=== PATIENT | female | born 1950 | race Caucasian/White ===

== ENCOUNTER 2019-08-24 09:04 | Emergency (ER) | payer MEDICARE, SELFPAY ==
[2019-08-24 09:05] VITALS: BP 145/90; PULSE 93; RESP 20; TEMP 37.4; O2SAT 91; BMI 28.2
--- NOTE | 2019-08-24 09:20 | CT_ITS ---
STUDY: CT ABDOMEN AND PELVIS WITHOUT CONTRAST REASON FOR EXAM: Female, 68 years old. Left flank pain x 1 week. Prior appendectomy, tubal ligation, hypertension. RADIATION DOSAGE (If Supplied By Facility): CTDIvol = ( 7.89 ) mGy, DLP = ( 378.65 ) mGycm TECHNIQUE: Transaxial images were obtained from the dome of the diaphragm to the symphysis pubis without oral contrast, and without intravenous contrast. Sagittal and coronal images were reconstructed. Individualized dose optimization techniques were used for this CT. COMPARISON: None. FINDINGS: Mild degree of increased markings in the anterior medial aspect of the right lower lobe suggestive of scarring. The visualized portions of the heart are within normal limits. Normal liver. Questionable tiny gallstones. Normal spleen. Normal pancreas. Normal bilateral adrenal glands. Normal right kidney. Normal left kidney. Moderate sized hiatal hernia. Normal small intestine. There are scattered colonic diverticula consistent with diverticulosis. The patient is status post appendectomy. There is diffuse atherosclerotic calcification of the abdominal aorta, without a demonstrated aneurysm. Normal inferior vena cava. Normal retroperitoneum. Normal urinary bladder. Normal abdominal wall. There is evidence of prior laminectomy with interpedicular screw fixation at the L4-L5 level. CT/Abdomen/Pelvis without Cont IMPRESSION: Moderate sized hiatal hernia. Possible tiny gallstones. Electronically Signed: Ubaldo Bro, at 9:49 EST , Service support ,
--- NOTE | 2019-08-24 09:21 | ED.DCSUM_ITS ---
History of Present Illness Chief Complaint: Flank Pain Informant: Patient Narrative: Patient states that at the end of July she was diagnosed with bronchitis. She states that she is pretty much gotten over that still has a lingering cough. For about a week she has had a discomfort in the lower left mid axillary flank. States is worse with movement and especially worse with cough. She tells me that she has had no change in urine or bowel movements. No reported fevers. She occasionally does produce some phlegm. No falls. Past Medical History - Allergies and Home Meds Allergies/Adverse Reactions: Allergies cefaclor [From Ceclor] Allergy (Verified 08/24/19 09:08) Hives Penicillins Allergy (Verified 08/24/19 09:08) Hives tramadol HCl [From Ultram] Allergy (Verified 08/24/19 09:08) Hives erythromycin base Adverse Reaction (Verified 08/24/19 09:08) Nausea Primary Care Physician: Esperanza Hector DO [Primary Care Provider] - Smoking Status: Former smoker Review of Systems General: Denies: Chills, Fever, Sweats Eyes: Denies: Visual changes - bilaterally, Diplopia ENT: Denies: Rhinorrhea, Sore throat Cardiovascular: Denies: Chest pain, Palpitations Respiratory: Denies: Dyspnea, Cough, Dyspnea on exertion Gastrointestinal: Reports: Abdominal pain, - - Left flank pain. Denies: Nausea, Vomiting, Diarrhea, Melena, Hematochezia Genitourinary: Denies: Dysuria, Hematuria, Frequency Musculoskeletal: Denies: Back pain, Extremity Pain Skin: Denies: Rash, Wounds Neurological: Denies: Headache, Weakness, Numbness Physical Exam Vital Signs/Narrative: Vital Signs Temp Pulse Resp BP Pulse Ox 08/24/19 09:05 99.3 F H 93 20 H 145/90 H 91 Inital Vital Signs reviewed: Yes General: Well nourished, Well developed, No Acute Distress Head: Normocephalic, Atraumatic Eyes: Perrl, EOMI ENT: Moist mucous membranes, No rhinorrhea Neck: Supple, Nontender Cardiovascular: Regular rate, Regular rhythm, No murmurs Respiratory: No distress, CTA bilaterally, Chest nontender Abdomen: Soft, Nondistended, Normal bowel sounds, Tender - She has tenderness palpation over the lower left mid axillary inferior most ribs as well as the inferior abdominal musculature. Worse with coughing movements. No rashes or e cchymosis. Back: Nontender, Normal Inspection Extremities: Nontender, No edema Skin: Normal color, No rash Neurological: Alert, Oriented x3, Cranial nerves II-XII grossly intact, Normal Strength, Normal Sensation Psychological: Normal affect, Normal Mood Diagnostic/Tx/Re-eval - Medical Decision Making Urine specimen was normal. No evidence of UTI or hematuria. CT of the flank did not demonstrate any ureterolithiasis or inflammatory changes around the kidney or colon. Patient I believe most likely has a musculoskeletal strain. She should be treated conservatively. Patient will follow-up if not improving ED Disposition - Plan for ED Patient: Disposition: Home or Assisted Living Diagnosis: Abdominal muscle strain Instructions: MUSCLE STRAIN, Abdomen Prescriptions: Hydrocodone Bitart/Apap 5-325 [Stanley 5MG-325MG] 1 tab PO Q6H PRN PRN 3 Days #10 tab PRN Reason: Pain Prescription Printed Referrals: Esperanza Hector DO [Primary Care Provider] - 1 Week if not improving Additional Instructions: Return if worsening or concerns
[2019-08-24 09:52] LABS: Bacteria 0 SEEN /hpf (None Seen); Mucous, Urine 0 SEEN /hpf (<or=2+); Red Blood Cells-Urine 0 SEEN /hpf (0-5); Squamous Epithelial Cells - UA 0 SEEN /hpf (5-10); White Blood Cells 0 SEEN /hpf (0-5)
[2019-08-24 09:53] LABS: Color, Urine Yellow (Yellow); Glucose, Dipstick Normal (Normal); Ketone-Dipstick Negative (Negative); Leukocyte Esterase-Dipstick Negative /ul (Negative); Nitrite-Dipstick Negative (Negative); Occult Blood-Urine 10 /ul (Negative); Protein-Dipstick Negative (Negative); Specific Gravity, Urine 1.025 (1.002-1.030); Urine Bilirubin Dipstick Negative (Negative); Urine Clarity Clear (Clear); Urine Urobilinogen Normal (Normal)
== END 2019-08-24 10:28 | disposition home or self-care (01) ==
PROVIDERS: Emergency Provider Emergency Medicine; PCP Family Medicine
DX: S39.011A Strain of muscle, fascia and tendon of abdomen, initial encounter (principal); X58.XXXA Exposure to other specified factors, initial encounter; Y93.89 Activity, other specified; Z87.891 Personal history of nicotine dependence
CPT/HCPCS: 74176; 81001; 99282; J7030

== ENCOUNTER → 2019-12-07 13:36 | Outpatient (CLI) | payer MEDICARE, SELFPAY ==
[2019-12-07 15:47] LABS: Creatinine, Serum 0.82 mg/dL (0.55-1.02); EST Glomerular Filtration Rate 73 mL/min (>60); Est Glom Filt Rate - Afr Amer 89 mL/min (>60)
--- OUTSIDE RECORDS SUMMARY | 2020-04-30 15:29 | XMS RPT_ITS | CCD ---
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 possible. In addition, use a tissue to cover your mouth when sneezing or coughing. Throw away used tissues promptly a nd then wash your hands. Sneezing/coughing into the sleeve of your clothing (at the inner elbow) is another way of containing sprays of saliva and secretions and does not con taminate your hands. Sneezing and coughing without covering your mouth can spread infection to anyone within 6 feet. Rayne Joseph APRN.[facility] 07/18/2018 8:49 AM Signed Subjective HPI Pt presents with c/o 4 day hx nasal congestion and cough. Denies fever, chills, myalgias, dyspnea, increased WOB. Has been using albuterol BID. Hx COPD and current everyday smoker. Cough is frequent, moist, nonproductive. +wheezing and occasional chest tightness with coughing. Began taking mucinex DM and robitussin yesterday. Review of Systems Constitutional: Negative for chills and fever. HENT: Positive for congestion. Negative for ear pain, sinus pain and sore throat. Respiratory: Positive for cough and wheezing. Ne gative for hemoptysis, sputum production and shortness of breath. Cardiovascular: Negative for chest pain. Objective Physical Exam Constitutional: She is oriented to perso n, place, and time and well-developed, well-nourished, and in no distress. No distress. HENT: Head: Normocephalic. Right Ear: Hearing, tympanic membrane, external ear and ear canal normal. Left Ear: Hearing, tympanic membrane, external ear and ear c anal normal. Nose: Nose normal. Right sinus exhibits no maxillary s inus tenderness and no frontal sinus tenderness. Le ft sinus exhibits no maxillary sinus tenderness and no frontal sinus tenderness. Mouth/Throat: Uvula is midline, oropharynx is clear and mois t and mucous membranes are normal. No oropharyngeal exudate. Eyes: Pupils are equal, round, and react gema to light. Conjunctivae are normal. Right eye exhibits no discharge. Left eye exhibits no discha rge. Neck: Neck supple. Cardiovascular: Normal rate, regular rhythm and normal heart sounds. Exam reveals no gallop and no friction rub. No murmur heard. Pulmonary/Chest: Effort normal. No accessory muscle usage. N o respiratory distress. She has decreased breath sound s (Good air movement throughout. Pulse ox 98% ). She has wheezes (expiratory). She has no rhonchi. She has no rales. Lymphadenopathy: She has no cervical adenopathy. Neurological: She is alert and oriented to person, place, an d time. Skin: Skin is warm and dry. She is not diaphoretic. BP 122/80 Pulse 92 Temp 37.2 ?C (99 ?F) (Tympanic) Res p 16 Wt 74.7 kg (164 lb 9.6 oz) SpO2 94% .Patient presents with: WOLFF, cough, congestion, ST, dizzy and SOB: x 4 days PAST MEDICAL HISTORY Diagnosis Date - Esophageal reflux Gastroesophageal reflux - Goiter, unspecified Goiter - Myalgia and myositis, unspecified Fibromyalgia (myalgia and myositis) - Obstructive chronic bronchitis with exacerbation (HCC) COPD - Pain in joint, site unspecified Joint Pain Unspec - PMH - PAST MEDICAL HISTORY OF Arthritis in knees - Tobacco use disorder PAST SURGICAL HISTORY Procedure Laterality Date - APPENDECTOMY - CARPAL TUNNEL RIGHT WRIST - PAST SURGICAL HISTORY OF benign cysts removed from both breast - PAST SURGICAL HISTORY OF Major surgery on back,metal rods and plate - PAST SURGICAL HISTORY OF Broken right foot ALLERGIES Ceclor [Cefaclor]; Dyazide [Triamterene-Hydrochl orothiazid]; Eryc [Erythromycin]; Penicillins; Percodan [Oxycodone Hcl-Oxyco done-Asa]; Ultram [Tramadol Hcl] MEDICATIONS ALBUTEROL SULFATE HFA 90 MCG/ACTUATION A EROSOL INHALER take 2 puffs four times daily. Ascorbic Acid (VITAMIN C) chew Take 500 mg by mouth once zee ly. CALCIUM-VITAMIN D3 ORAL Take by mouth. diazePAM (VALIUM) 5 mg tablet Take 5 mg by mouth every 6 ash rs as needed. FERROUS SULFATE (FE-TABS ORAL) Take by mouth. FLUoxetine (PROZAC) 10 mg capsule Take 10 mg by mouth once d aily. lisinopril (ZESTRIL, PRINIVIL) 10 mg tablet Take 10 mg by mouth once daily. lovastatin (MEVACOR) 20 mg tablet Take 20 mg by mouth daily at bedtime. oxycodone hcl/acetaminophen(PERCOCET 10 MG-325 MG TAB) Take one tablet as needed. pantoprazole sodium(PROTONIX 40 MG TAB) Take one(1) tablet d aily. torsemide (DEMADEX) 20 mg tablet Take 1 tablet by mouth once daily. valACYclovir (VALTREX) 500 mg tablet Take 500 mg by mouth on ce daily. benzonatate (TESSALON PERLE) 100 mg capsule Take 1 capsule by mouth three times daily as needed. citalopram (CELEXA) 20 mg ORAL Tab Take one(1) tablet daily. fluticasone (FLOVENT HFA) 110 mcg/actuation inhaler Inhale 2 Puffs as instructed twice daily. guaiFENesin (MUCINEX) 600 mg 12 hr table t Take 2 tablets by mouth twice daily. Inhalational Spacing Device (AEROVENT PLUS) spcr 1 Device one time only for 1 dose. oxyCODONE ER (OXYCONTIN) 40 mg Tb12 Take 1 tablet by mouth e very 12 hours. predniSONE (DELTASONE) 20 mg tablet Take 2 tablets by mouth once daily for 5 days. Take daily with food. FAMILY HISTORY Problem Relation Age of Onset - Alzheimer's Disease Maternal Aunt - Allergies Mother iodine - Arthritis Mother - Arthritis Maternal Grandmother - Cancer Maternal Grandfather brain cancer - Diabetes Brother diet controllled - Emphysema Father - Heart Father heart attack - Hypertension Mother - Lipids Mother - Osteoporosis Mother - Stroke Father Social History Substance Use Topics - Smoking status: Former Smoker Packs/day: 1.00 Years: 35.00 Types: Cigarettes Quit date: 12/15/2006 - Smokeless tobacco: Never Used - Alcohol use No ASSESSMENT/PLAN: 1. Bronchitis - ICD9: 490, ICD10: J40 (primary diagnosis) - BENZONATATE 100 MG CAPSULE - GUAIFENESIN ER 600 MG TABLET, EXTENDED RELEASE 12 HR - FLUTICASONE 110 MCG/ACTUATION HFA AEROSOL INHALER - PREDNISONE 20 MG TABLET - INHALATIONAL SPACING DEVICE 2. Tobacco use disorder - ICD9: 305.1, ICD10: F17.200 - Cessation encouraged. - Physiologic and physical aspects of tobacco ad diction as well as strategies for quitting were discussed. - Counseling was given focusing on the harmful effects of th is addiction especially given the patient's medical condition(s) which wi ll be worsened because of the chemicals in tobacco. 3. Obstructive chronic bronchitis with exacerbation (HCC) - ICD9: 491.21, ICD10: J44.1 The patient is instructed to return or seek emergency michael tment if symptoms become worse or with any acute change in condition. The patient verbalizes understanding and [facility]. Rayne Joseph CNP Referring Provider: SELF [[id number]] Allergies As of Date: 07/18/2018 Noted Allergy Reaction CECLOR (CEFACLOR) 11/18/2006 4 - Hives DYAZIDE (TRIAMTERENE-HYDROCHLOROT*11/18/2006 2 - Rash ERYC (ERYTHROMYCIN) 11/18/2006 8 - GI Upset PENICILLINS 11/18/2006 4 - Hives PERCODAN (OXYCODONE HCL-OXYCODONE*10/06/2012 11 - Vomiting ULTRAM (TRAMADOL HCL) 11/18/2006 11 - Vomiting Date Reviewed: 07/18/2018 Reviewed by: Aixa Shabazz LPN - Fully Assessed Reason for Visit: WOLFF, cough, congestion, ST, dizzy and SOB [Other] Cmt: x 4 da ys Primary Visit Diagnosis:Bronchitis [J40] Other Visit Diagnoses:Tobacco use disorder [F17.200] Obstructive chronic bronchitis with exacerbation (HCC) [J44.1] Order(s):benzonatate (TESSALON PERLE) 100 mg capsuleTake 1 capsule by mouth three times daily as needed.Disp: 60 capsuleRfl: 0 guaiFENesin (MUCINEX) 600 mg 12 hr tabletTake 2 tablets by m outh twice daily.Disp: 60 tabletRfl: 0 fluticasone (FLOVENT HFA) 110 mcg/actuation inhalerInhale 2 Puffs as instructed twice daily.Disp: 1 InhalerRfl: 5 predniSONE (DELTASONE) 20 mg tabletTake 2 tablets by mouth o nce daily for 5 days. Take daily with food.Disp: 10 tabletRfl: 0 Inhalational Spacing Device (AEROVENT PLUS) spcr1 Device one time only for 1 dose.Disp: 1 EachRfl: 0 Prescriptions as of 07/18/2018 Sig: * ALBUTEROL SULFATE HFA 90 MCG/* take 2 puffs four times zee ly. ASCORBIC ACID (VITAMIN C) 500* Take 500 mg by mouth once zee * CALCIUM-VITAMIN D3 ORAL Take by mouth. DIAZEPAM 5 MG TABLET Take 5 mg by mouth every 6 ho* FE-TABS ORAL Take by mouth. FLUOXETINE 10 MG CAPSULE Take 10 mg by mouth once ansley* LISINOPRIL 10 MG TABLET Take 10 mg by mouth once ansley* LOVASTATIN 20 MG TABLET Take 20 mg by mouth daily at * * PERCOCET 10 MG-325 MG TABLET Take one tablet as needed. * PROTONIX 40 MG TABLET,DELAYED* Take one(1) tablet daily. TORSEMIDE 20 MG TABLET Take 1 tablet by mouth once d* VALACYCLOVIR 500 MG TABLET Take 500 mg by mouth once zee* BENZONATATE 100 MG CAPSULE Take 1 capsule by mouth three* * CELEXA 20 MG TABLET Take one(1) tablet daily. FLUTICASONE 110 MCG/ACTUATION* Inhale 2 Puffs as instructed * GUAIFENESIN ER 600 MG TABLET,* Take 2 tablets by mouth twice * INHALATIONAL SPACING DEVICE 1 Device one time only for 1 * OXYCODONE ER 40 MG TABLET,EXT* Take 1 tablet by mouth every * Patient not taking: Reported on 07/18/2018 PREDNISONE 20 MG TABLET Take 2 tablets by mouth once * Problem List As Of Date 07/18/2018 Noted Resolved MYALGIA AND MYOSITIS NOS [PSU2240] More... TOBACCO USE DISORDER [F17.200] JOINT PAIN-UNSPEC [M25.50] More... ESOPHAGEAL REFLUX [K21.9] More... GOITER NOS [E04.9] More... OBST CHRON BRONCHITIS WITH EXAC [J44.1] More... ACTINIC KERATOSIS [L57.0] INVALID FOR* SOLAR LENTIGENES////DYSCHROMIA OTHER [L81.9] INVALID FOR* SEBORRHEIC KERATOSIS NOS [L82.1] INVALID FOR* CHR SOLAR SKIN DAMAGE NOS [L57.8] INVALID FOR* INTRADERMAL NEVUS MOLE--BACK-BENIGN JERAMIE SKIN TR*INVALID FOR* VIRAL WARTS NOS [B07.9] INVALID FOR* Other instructions from your clinician: EXPRESS CARE PATIENT INFO BRONCHITIS OVERVIEW Bronchitis develops when there is swelling and irritation of the bronchi, the large tubes that carry air to the lungs. There are two t ypes of bronchitis: acute (sudden onset) and chronic (long-standing) . Acute bronchitis often occurs with a viral infection, such a s the common cold, and is sometimes called a chest cold. The most commo n symptom of acute bronchitis is a nagging cough. Treatment of acute bron chitis usually involves treating the symptoms, such as sore throat and yuridia estion. Antibiotics do not help to eliminate acute bronchitis caused by a virus. Antiviral agents are useful in some cases of acute bronchiti s due to influenza, but there are antiviral agents for other forms of viral bronchitis. BRONCHITIS CAUSES Most cases of bronchitis are caused by a viral infection of the upper airways, such as the common cold or the flu. Less commonly, a bacterium such as pertussis (whooping cough) is the cause. BRONCHITIS SYMPTOMS The most common symptoms of acute bronchitis include: ? A persistent cough; this may last 10 to 20 days ? Some people cough up mucus, which may be clear, yellow, or green in color Fever is not common in people with acute bronchitis. However , having a fever can be a sign of another condition, such as the flu or pneumonia. Conditions with similar features ? There are other condition s that have symptoms similar to those of acute bronchitis. ? Chronic cough ? A persistent cough that lasts more than ei ght weeks is considered a chronic cough, which is discussed in detail els ewhere. ? Chronic bronchitis ? Chronic bronchitis is defined as a co ugh that occurs on most days of the month for at least three months o f the year during two consecutive years. ? Pneumonia ? Signs of pneumonia include fever and a fast he art and breathing rate. ? Postnasal drip ? Postnasal drip occurs when secretions shanna in from the sinuses into the throat. This can cause the throat to feel i rritated, which causes you to feel like you need to clear your throat frequently. Postnasal drip can be caused by the common cold, allergies, sinusitis, or environmental irritants. BRONCHITIS DIAGNOSIS Most people who have a persistent cough after an upper respi ratory infection (cold) do not need to see a healthcare provider. D iagnostic testing, such as x-rays, cultures, and blood tests, are not usually needed for people with acute bronchitis. However, testing may be re commended if your diagnosis is not clear based upon your examination or i f another condition, such as pneumonia, is suspected. When to seek help ? You should call your healthcare provider if you have any of the following: ? Fever (temperature greater than 100.4? F or 38? C) ? A cough that lasts longer than 10 days ? Chest pain with coughing, difficulty breathing, or coughin g up blood ? A barking cough that makes it hard to speak, especially if it persists ? Cough accompanied by unexplained weight loss People who are older than 75 do not always have a fever or o ther concerning symptoms. If you are over 75 years and you have a persistent cough, you should call your clinician to determine if and wh en an office visit is recommended. BRONCHITIS TREATMENT Relief of symptoms ? There is no specific treatment for bron chitis, but there are a few treatments available for the common cold. ? A nonsteroidal antiinflammatory drug (ibuprofen, naproxen) , aspirin, or acetaminophen (Tylenol?) can help to relieve the pain of a s ore throat or headache. ? Pseudoephedrine is a decongestant that can improve nasal c ongestion. Most drugstores in the [place] carry pseudoephedrine b ehind the counter, so you must ask for it from the pharmacist (a presc ription is not required). Other decongestants, such as phenylephrine, are not as effec tive as pseudoephedrine. Antihistamines such as diphenhydramine (Benadryl?) may also help, but can cause side effects such as drowsiness and drying of the eyes , nose, and mouth. ? Heated, humidified, air can improve symptoms of nasal yuridia estion and runny nose, and has few to no side effects. ? Cough suppressants such as dextromethorphan may be helpful . Antibiotics ? Antibiotics are NOT helpful for most people wi th bronchitis since the illness is typically caused by a virus. Antibiotic s treat bacterial, not viral infections. Antibiotics may be helpful for some patients with other chronic diseases. Many people request antibiotics in the hopes that it will ge t rid of the cough, and some people even think that antibiotics have help ed on previous occasions. However, there is no benefit of antibiotics for m ost cases of bronchitis. PREVENTING THE SPREAD OF ILLNESS Hand washing is an essential and highly effective way to pre vent the spread of infection. Wet your hands with water and plain soa p and rub them together for 15 to 30 seconds. Pay special attention to the fingernails, between the fingers, and the wrists. Rinse your hands thorou ghly, and dry with a single use towel. Alcohol-based hand rubs are a good alternative for disinfect ing hands if a sink is not available. Spread the hand rub over the entire s urface of your hands, fingers, and wrists until dry. You can use hand rubs repeatedly without irritating the skin or losing effectiveness. Hand ru bs are available as a liquid or wipe in small, portable sizes that are easy to carry in a pocket or handbag. When a sink is available, you should wash visibly soiled hands with soap and water. Wash your hands before preparing food and eating, and after going to the bathroom, and after coughing, blowing the nose, or sneezing. While it is not always possible to limit contact with people who are ill , avoid touching your eyes, nose, or mouth after direct contact, whe n possible. In addition, use a tissue to cover your mouth when sneezing or coughing. Throw away used tissues promptly and then wash your hands. Sneezing/coughing into the sleeve of your clothing (at the i nner elbow) is another way of containing sprays of saliva and secretions an d does not contaminate your hands. Sneezing and coughing without coveri ng your mouth can spread infection to anyone within 6 feet. Prescriptions ordered this encounter Disp Refills Start End BENZONATATE 100 MG CAPSULE 60 c* 0 07/18/2018 Route: ORAL Sig: Take 1 capsule by mouth three times daily as needed. GUAIFENESIN ER 600 MG TABLET, EXTEND* 60 t* 0 07/18/2018 Route: ORAL Sig: Take 2 tablets by mouth twice daily. FLUTICASONE 110 MCG/ACTUATION HFA AE* 1 In* 5 07/18/2018 Route: INHALATION Sig: Inhale 2 Puffs as instructed twice daily. PREDNISONE 20 MG TABLET 10 t* 0 07/18/2018 07/23/2018 Route: ORAL Sig: Take 2 tablets by mouth once daily for 5 days. Take zee ly with food. INHALATIONAL SPACING DEVICE 1 Ea* 0 07/18/2018 07/18/2018 Route: Misc Si Device one time only for 1 dose. Encounter Status:Closed by RAYNE JOSEPH CNP on 07/18 Summary Purpose Family History No Family History Records FoundNo Family History Records Found Advance Directives No Advanced Directives Records FoundNo Advanced Directives Records Found Additional Source Comments FOR RECORDS PERTAINING TO PATIENTS WHO ARE OR HAVE BEEN ENROLLED IN A CHEMICAL DEPENDENCY/SUBSTANCE ABUSE PROGRAM, SOME INFORMATION MAY BE OMITTED. This clinical summary was aggregated from multiple sources. Caution should be exercised in using it in the provision of clinical care. This summary normalizes information from multiple sources, and as a consequence, information in this document may materially changethe coding, format and clinical context of patient data. In addition, data may be omittedin some cases. CLINICAL DECISIONS SHOULD BE BASED ON THE PRIMARY CLINICAL RECORDS. [facility] provides no warranty or guarantee of the accuracy or completeness of information in this document. UNRECOGNIZED CONTENT PROVIDED BELOW FOR UNRECOGNIZED SECTION INFORMATION SOURCE DATE CREATED AUTHOR AUTHOR'S ORGANIZATIO N 12/10/2018 [facility] DATE CREATED AUTHOR AUTHOR'S ORGANIZATIO N 04/20/2020 [facility]
== END ==
PROVIDERS: PCP Family Medicine; Referring Provider Orthopaedic Surgery; Visit Provider Orthopaedic Surgery
DX: M54.16 Radiculopathy, lumbar region (principal)
CPT/HCPCS: 36415; 82565

== ENCOUNTER 2020-04-30 18:05 | Emergency (ER) | payer MEDICARE, SELFPAY ==
[2020-04-30 18:06] VITALS: BP 188/99; PULSE 106; RESP 14; TEMP 36.1; O2SAT 97; BMI 30.4
--- NOTE | 2020-04-30 18:19 | ED.DCSUM_ITS ---
History of Present Illness Chief Complaint: Lower Extremity Injury Detail of Chief Complaint: Pain lateral anterior left leg Informant: Patient Onset: Days - Onset Wednesday Context: Sudden Onset Timing: Continuous Quality: Pain Location: Anterior lateral mid to proximal left leg Current Severity: Mild Maximum Severity: Moderate Worsened by: Movement, walking, palpation Relieved by: Nothing Associated Symptoms: None Narrative: Patient is 69-year-old woman who presents with atraumatic left anterior lateral leg pain. She has no history of PE or DVT. She denies chest pain or shortness of breath. She denies history of trauma. She cannot explain the bruising. She denies symptoms of claudication. She denies paresthesia, anesthesia motors. She is status post total knee arthroplasty left and right knee. She initially stated she only took 1 Pneumovax then went I informed her treatment is anti- inflammatory she states she is taken more. She is applied both heat and ice. It is slow Prior similar symptoms: No Recent Illness/Hospitalization: No - Past Medical History (1) Degenerative disc disease Status: Acute Past Medical History - Allergies and Home Meds Allergies/Adverse Reactions: Allergies alendronate sodium [From Fosamax] Allergy (Verified 04/30/20 18:05) Pain in joints cefaclor [From Ceclor] Allergy (Verified 04/30/20 18:05) Hives Penicillins Allergy (Verified 04/30/20 18:05) Hives tramadol HCl [From Ultram] Allergy (Verified 04/30/20 18:05) Hives erythromycin base Adverse Reaction (Verified 04/30/20 18:05) Nausea Primary Care Physician: Esperanza Hector DO [Primary Care Provider] - Prior records reviewed: No Surgical History: noncontributory Lives: Alone Smoking Status: Former smoker Alcohol: None Drugs: None Review of Systems General: Denies: Chills, Fever, Malaise, Subjective, Sweats, Weight loss Cardiovascular: Denies: Chest pain, Palpitations, Heart racing Respiratory: Denies: Dyspnea, Cough, Sputum, Dyspnea on exertion Gastrointestinal: Denies: Abdominal pain, Nausea, Vomiting Musculoskeletal: Reports: Extremity Pain. Denies: Myalgias, Arthralgias, Neck pain, Back pain, Swelling Skin: Denies: Rash, Abscess, Abrasions Neurological: Denies: Headache, Weakness, Parasthesia, Numbness Hematologic: Denies: Easy bruising, Easy bleeding Physical Exam Vital Signs/Narrative: Vital Signs Temp Pulse Resp BP Pulse Ox 04/30/20 18:06 96.9 F L 106 H 14 188/99 H 97 Inital Vital Signs reviewed: Yes General: Well nourished, Well developed, No Acute Distress Head: Normocephalic, Atraumatic Eyes: Perrl, EOMI. Negative for: Pale conjunctiva Cardiovascular: Regular rate, Regular rhythm Respiratory: No distress Abdomen: Soft, Nontender, Nondistended, Normal bowel sounds Back: Nontender, Normal Inspection Extremities: No edema, Tenderness - There is bruising noted anterior lateral left leg. The areas of bruising is where she complains of pain and has tenderness., - - There is no asymmetry, there is no discoloration, there is no leg vein distention, there is no tenderness on the distribution deep venous system and there are no palpable cords. Wells score for DVT is -2. Negative for: Nontender Skin: Normal color, No rash, Trauma Neurological: Alert, Oriented x3, Cranial nerves II-XII grossly intact, Normal Strength, Normal Sensation. Negative for: Normal Gait - Patient does walk with a limp. Psychological: Depressed Diagnostic/Tx/Re-eval - Medical Decision Making With patient having reproducible anterior pain and areas of bruising patient has a contusion and soft tissue injury. Treatment is ice, elevation, limit activity and anti-inflammatory. She has Mobic at home. ED Disposition - Plan for ED Patient: Disposition: Home or Assisted Living Diagnosis: Contusion of left lower leg, initial encounter Instructions: ED EXTREMITY CONTUSION Lower Referrals: Esperanza Hector DO [Primary Care Provider] - 1 Week if not improving Additional Instructions: 1. Apply ice 20 to 30 minutes per application 6-8 times a day minimal 2. Avoid activity that causes you pain 3. Take movement as prescribed
== END 2020-04-30 18:55 | disposition home or self-care (01) ==
PROVIDERS: Emergency Provider Emergency Medicine; PCP Family Medicine
DX: S80.12XA Contusion of left lower leg, initial encounter (principal); X58.XXXA Exposure to other specified factors, initial encounter; Y93.9 Activity, unspecified; Y92.9 Unspecified place or not applicable; Y99.9 Unspecified external cause status; Z96.653 Presence of artificial knee joint, bilateral; Z87.891 Personal history of nicotine dependence
CPT/HCPCS: 99281

== ENCOUNTER 2023-07-13 15:20 | Emergency (ER) | payer MEDICARE, SELFPAY ==
[2023-07-13 15:22] VITALS: BP 148/91; PULSE 59; RESP 18; TEMP 36.6; O2SAT 96; BMI 30.7
--- NOTE | 2023-07-13 17:02 | EDS_ITS ---
HPI <HOPE Davey - Last Filed: 07/13/23 17:08> History of Present Illness Chief Complaint: Bite Narrative Narrative: Patient is a 72-year-old female with history of COPD, anxiety, chronic back pain who presents to the emergency department after being bit by her cat to the left hand. Patient states he is currently on some antibiotic for bronchitis however she is not sure which one. She does have an allergy to penicillin which she gets hives. Patient denies any other injury. Patient dates that her tetanus vaccination is not up-to-date. PFSH <HOPE Davey - Last Filed: 07/13/23 17:08> PFS Home Medications pantoprazole 40 mg tablet,delayed release 40 mg PO DAILY 02/09/16 [History Last Taken Unknown] valacyclovir 500 mg tablet (Valtrex) 500 mg PO BID 02/09/16 [History Last Taken Unknown] albuterol sulfate 90 mcg/actuation aerosol inhaler 1 - 2 puff inhalation Q4H PRN PRN Sob &/Or Wheezing 08/24/19 [History Last Taken Unknown] buspirone 10 mg tablet 10 mg PO TID 08/24/19 [History Last Taken Unknown] loratadine 10 mg tablet 10 mg PO DAILY 08/24/19 [History Last Taken Unknown] trazodone 50 mg tablet 50 mg PO QHS 08/24/19 [History Last Taken Unknown] clindamycin HCl 300 mg capsule 300 mg PO Q8H 7 days #21 caps 07/13/23 [Rx Last Taken Unknown] Allergy/AdvReac Type Severity Reaction Status Date / Time alendronate sodium Allergy Pain in Verified 07/13/23 15:21 [From Fosamax] joints cefaclor [From Ceclor] Allergy Hives Verified 07/13/23 15:21 Penicillins Allergy Hives Verified 07/13/23 15:21 tramadol HCl [From Ultram] Allergy Hives Verified 07/13/23 15:21 erythromycin base AdvReac Nausea Verified 07/13/23 15:21 Social History Smoking Status: Former smoker ROS <HOPE Davey - Last Filed: 07/13/23 17:08> ROS ED ROS Narrative Constitutional: Negative for fever, chills, weight loss, weakness Eyes: Negative for vision loss, vision change, double vision ENT: Negative for any sore throat, ear pain, congestion Cardiovascular: Negative for any chest pain, tightness, palpitations Respiratory: Negative for any cough, sputum production, hemoptysis, dyspnea, dyspnea on exertion, orthopnea Gastrointestinal: Negative for any abdominal pain, nausea, vomiting, diarrhea, constipation, blood in stool, blood in vomit : Negative for any urinary frequency, dysuria, retention, blood in urine Muscle skeletal: Negative for any myalgias, arthralgias, neck pain, back pain Neurological: Negative for any headache, syncope, paresthesias, dizziness Skin: Negative for any rashes, lumps, itching, abrasions, lacerations. Positive for swelling, pain to the left hand from the cat bite Psychiatric: Negative for any depression, anxiety, stress, suicidal ideation, homicidal ideation Hematologic: Negative for any easy bruising, excessive bruising, easy bleeding Allergies: Negative for any eczema, hives, rash EXAM <HOPE Davey - Last Filed: 07/13/23 17:08> Physical Exam Narrative Exam Narrative: Vital signs reviewed. Extremities: No peripheral edema, no signs of gross trauma or deformity. Active full range of motion of all extremities. Patient has full range of motion, she does have an area of erythema to the dorsal aspect of the hand, there is no significant swelling, there is no significant cellulitis. I do see a small puncture wound, there is no gross drainage. No abscess formation. Neuro: Cranial nerves II through XII intact, no focal neurological deficits. Skin: Clean dry and intact with no rash, purpura, petechiae, vesicles or pustules. Backs/flank: No CVA tenderness, no midline spinal tenderness, no deformity. Psych: Normal mood and affect. No SI, HI or acute psychosis. Const Vital Signs: 07/13/23 15:22 Temperature 97.8 F Temperature Source Temporal Pulse Rate 59 L Respiratory Rate 18 Blood Pressure 148/91 H Blood Pressure Mean 110 Pulse Ox 96 Oxygen Delivery Method Room Air <Dr. Chris Maria MD - Last Filed: 07/13/23 17:09> Physical Exam Const Vital Signs: 07/13/23 15:22 Temperature 97.8 F Temperature Source Temporal Pulse Rate 59 L Respiratory Rate 18 Blood Pressure 148/91 H Blood Pressure Mean 110 Pulse Ox 96 Oxygen Delivery Method Room Air MDM <HOPE Davey - Last Filed: 07/13/23 17:08> [facility] Treatment and Re-Evaluation :: Patient appears generally well, patient appears nontoxic, vital signs are stable. Presenting to the emergency department with a cat bite to the left hand. Differential diagnoses include cellulitis, abscess formation, tendon synovitis. Physical examination insistent with cellulitis. There is some redness and swelling. Patient does have a history of amoxicillin, penicillin, patient replaced on clindamycin 300 mg 3 times a day for 1 week. She will stop her antibiotics for her bronchitis this is likely a viral respite respiratory tract infection. She will be up-to-date on her tetanus vaccination today, she is instructed to return for any worsening symptoms. All questions were answered, patient stable for discharge. <Dr. Chris Maria MD - Last Filed: 07/13/23 17:09> [facility] Narrative Medical decision making narrative: I have personally performed a face to face assessment of the patient and have reviewed the [facility] Note. I performed a substantive portion of the visit including all aspects of the following. My rebollar findings include: History is 72-year-old female bit by her cat earlier today in her dorsum of her left hand. No other complaints. Exam is [well-appearing 72-year-old female. Vital signs stable afebrile. HEENT exam unremarkable. Lungs clear. Heart regular rhythm no murmur. Chest wall nontender. Abdomen soft nontender. Dorsum of the left hand puncture wound cat bite. Minimal swelling. No significant tenderness. No lymphangitic streaking. No tenosynovitis. No axillary lymphadenopathy.] Medical Decision Making [Bite left hand. Started on clindamycin. Follow-up if getting worse. Return.] Other additions or changes: [None] Discharge Plan Triage Chief Complaint: Bite ED Midlevel Provider: Richard Koo ED Provider: Chris Maria Dx/Rx/DC Orders Clinical Impression: Cat bite Instructions: ED Cat Bite Prescriptions: New clindamycin HCl 300 mg capsule 300 mg PO Q8H 7 Days Qty: 21 0RF No Action valacyclovir [Valtrex] 500 MG tablet 500 mg PO BID pantoprazole 40 MG tablet 40 mg PO DAILY trazodone 50 MG tablet 50 mg PO QHS buspirone 10 MG tablet 10 mg PO TID albuterol sulfate 1 INHALER inhaler 1 - 2 puff inhalation Q4H PRN PRN (Reason: Sob &/Or Wheezing) loratadine 10 MG tablet 10 mg PO DAILY Primary Care Provider: Esperanza Hector Referrals: Esperanza Hector DO [Primary Care Provider] - Activity Restrictions/Additional Instructions: Please make sure he elevate, take off your rings. Take the clindamycin stop taking the other antibiotic. Will take the clindamycin 3 times a day for 1 week. Return for any worsening symptoms. Disposition Disposition: Home, Self Care
[2023-07-13] MEDS: Diphth,Pertuss(Acell),Tet Vac 0.5 ML Vial IM (17:11)
[2023-07-13] MEDS: Clindamycin HCl 150 MG Capsule 300 MG PO (17:11)
[2023-07-13 17:41] VITALS: PULSE 82; RESP 16
== END 2023-07-13 17:41 | disposition home or self-care (01) ==
PROVIDERS: Emergency Provider Emergency Medicine; PCP Family Medicine; Visit Provider Emergency Medicine
DX: S61.432A Puncture wound without foreign body of left hand, initial encounter (principal); W55.01XA Bitten by cat, initial encounter; Z87.891 Personal history of nicotine dependence; Z23 Encounter for immunization
CPT/HCPCS: 90471; 90715; 99283

== ENCOUNTER → 2023-10-28 | Outpatient (CLI) | payer MEDICARE, SELFPAY ==
--- NOTE | 2023-10-28 14:32 | RAD_ITS ---
STUDY: X-RAY - RIGHT KNEE REASON FOR EXAM: Female, 72 years old. Pain. TECHNIQUE: 4 views of the right knee. COMPARISON: None. FINDINGS: There is a right total knee arthroplasty with patellar resurfacing. The orthopedic hardware components are intact. There is no periprosthetic fracture. There is a small knee joint effusion. Normal proximal tibiofibular articulation. RAD/Knee 4 or More Views IMPRESSION: Right total knee arthroplasty, with no periprosthetic fracture. Small knee joint effusion. Electronically Signed: Des Canales MD at 15:56 EDT ,
--- NOTE | 2023-10-28 14:32 | RAD_ITS ---
INDICATION: PAIN EXAMINATION/TECHNIQUE: X-RAY - XR Hips Bilateral with Pelvis when performed; Min 5 Views COMPARISON: No relevant prior comparison study available FINDINGS: PELVIC BONES: No displaced fracture, destructive or sclerotic lesions. Note that overlapping bowel shadows may however obscure fine detail. Sacroiliac joints are unremarkable. No widening of the pubic symphysis. There is bilateral fusion hardware in the visualized lower lumbar spine. HIPS: There is minimal degenerative arthrosis of the hip joints bilaterally. No displaced fracture. SOFT TISSUES: No soft tissue swelling or gas. RAD/Hips B/L min 2 views w/ Pelvis IMPRESSION: Minimal degenerative arthrosis of the hip joints bilaterally. No evidence of displaced pelvic or hip fracture. Electronically Signed: Des Canales MD at 16:05 EDT ,
== END | disposition home or self-care (01) ==
LOC: MTRAD 14:30
PROVIDERS: PCP Family Medicine; Referring Provider Clinical Nurse Specialist Adult Health; Visit Provider Clinical Nurse Specialist Adult Health
DX: M25.551 Pain in right hip (principal); M25.552 Pain in left hip; M25.561 Pain in right knee
CPT/HCPCS: 73521; 73564

== ENCOUNTER → 2024-01-18 | Outpatient (CLI) | payer MEDICARE, SELFPAY ==
--- NOTE | 2024-01-18 15:47 | RAD_ITS ---
INDICATION: PAIN EXAMINATION/TECHNIQUE: X-RAY - RIGHT XR Shoulder 4 VIEWS COMPARISON: FINDINGS: SOFT TISSUES: No soft tissue swelling or gas. No radiopaque foreign body. BONES/JOINTS: No acute fracture.. Slightly widened acromioclavicular articulation with mild depression of the acromion. No sclerotic or destructive changes observed. RAD/Shoulder min 2 Views IMPRESSION: Slightly widened acromioclavicular articulation with mild depression of the acromion.. Electronically Signed: Toby York DO at 16:12 EDT ,
--- NOTE | 2024-01-18 15:47 | RAD_ITS ---
INDICATION: PAIN EXAMINATION/TECHNIQUE: X-RAY - LEFT XR Shoulder 4 VIEWS COMPARISON: FINDINGS: SOFT TISSUES: No soft tissue swelling or gas. No radiopaque foreign body. BONES/JOINTS: No acute fracture or subluxation.. Normal alignment. Degenerative changes with spurring at the glenohumeral articulation.. No sclerotic or destructive changes observed. RAD/Shoulder min 2 Views IMPRESSION: Degenerative changes. Electronically Signed: Toby York DO at 16:42 EDT ,
--- NOTE | 2024-01-18 15:47 | RAD_ITS ---
STUDY: X-RAY - CERVICAL SPINE REASON FOR EXAM: Female, 73 years old. PAIN TECHNIQUE: 5 view(s) of the cervical spine were obtained. COMPARISON: None FINDINGS: Normal anterior atlantoaxial articulation. Normal odontoid process. Normal cervical lordosis. Normal vertebral bodies and endplates. Normal disc space heights. . Uncovertebral spurring slightly narrowing the C5-6 intervertebral neuroforamina. The soft tissue structures are unremarkable. RAD/Cerv Spine 4 or 5 Views IMPRESSION: No acute bony injury of the visualized cervical spine. Electronically Signed: Toby York DO at 16:46 EDT Reading Location ID and State: [facility] / [place] Tel [phone], Service support ,
== END | disposition home or self-care (01) ==
LOC: MTRAD 15:45
PROVIDERS: PCP Family Medicine; Referring Provider Clinical Nurse Specialist Adult Health; Visit Provider Clinical Nurse Specialist Adult Health
DX: M54.2 Cervicalgia (principal); M25.511 Pain in right shoulder; M25.512 Pain in left shoulder
CPT/HCPCS: 72050; 73030

== ENCOUNTER 2024-06-20 08:54 | Emergency (ER) | payer MEDICARE, SELFPAY ==
[2024-06-20] VITALS (8 sets, daily range): BP systolic 115–149; BP diastolic 78–97; PULSE 82–111; RESP 16–28; TEMP 36.6–37.2; O2SAT 96–99; BMI 31.4
--- NOTE | 2024-06-20 09:16 | EDS_ITS ---
HPI History of Present Illness Chief Complaint: Shortness of Breath Detail of Chief Complaint: Shortness of breath Informant: patient Narrative Narrative: Patient presents to the emergency department via EMS from home for dyspnea. Patient states that she started feeling more short of breath around 1 AM but she has been coughing for a couple weeks. Patient around 8 AM began having severe trouble breathing. She was seen by her primary care physician yesterday and started on a inhaler. Patient's cough is nonproductive. She has had no fever. She denies chest pain but does have some chest tightness. Patient denies recent travel or surgery. No history of PE or DVT. No history of CHF. She does have history of COPD but does not wear home O2. She quit smoking 1 month ago. PFSH PFSH Home Medications ?Medication ?Instructions ?Recorded ?Last Taken ?Type pantoprazole 40 mg tablet,delayed 40 mg PO DAILY 02/09/16 Unknown History release valacyclovir 500 mg tablet 500 mg PO BID 02/09/16 Unknown History (Valtrex) albuterol sulfate 90 mcg/actuation 1 - 2 puff inhalation Q4H PRN PRN 08/24/19 Unknown History aerosol inhaler Sob &/Or Wheezing buspirone 10 mg tablet 10 mg PO TID 08/24/19 Unknown History loratadine 10 mg tablet 10 mg PO DAILY 08/24/19 Unknown History trazodone 50 mg tablet 50 mg PO QHS 08/24/19 Unknown History clindamycin HCl 300 mg capsule 300 mg PO Q8H 7 days #21 caps 07/13/23 Unknown Rx doxycycline monohydrate 100 mg 100 mg PO BID #20 CAPSULES 06/20/24 Unknown Rx capsule prednisone 20 mg tablet 20 mg PO BID #10 tabs 06/20/24 Unknown Rx Allergy/AdvReac Type Severity Reaction Status Date / Time alendronate sodium (From Allergy Pain in Verified 06/20/24 08:55 Fosamax) joints cefaclor (From Ceclor) Allergy Hives Verified 06/20/24 08:55 Penicillins Allergy Hives Verified 06/20/24 08:55 tramadol HCl (From Ultram) Allergy Hives Verified 06/20/24 08:55 erythromycin base AdvReac Nausea Verified 06/20/24 08:55 Social History Smoking Status: Former smoker ROS ROS ED Review of Systems ROS Unobtainable: other Constitutional Constitutional ED: Reports lethargy; Denies chills, fever(s), sweats or weight loss Eyes Eyes: Denies blurry vision, change in vision or diplopia ENT ENT ED: Denies rhinorrhea or sore throat Cardiovascular Cardiovascular: Denies chest pain, orthopnea or racing heartbeat Respiratory/Chest Respiratory/Chest: Reports cough, dyspnea and dyspnea on exertion; Denies orthopnea or sputum Gastrointestinal Gastrointestinal: Denies abdominal pain, diarrhea, nausea or vomiting Genitourinary Genitourinary ED: Denies dysuria, hematuria or urinary frequency Musculoskeletal Musculoskeletal: Denies arthralgias, back pain, myalgias or neck pain Integumentary Denies abscess, Abrasions or rash Neurologic Neurologic: Denies headache(s) or weakness Psychiatric Psychiatric: Denies anxiety, depression or suicidal thoughts Endocrine Endocrinology: Denies polydipsia, polyphagia or polyuria Hematologic/Lymphatic Hematologic/Lymphatic: Denies easy bleeding, easy bruising or lymphadenopathy Allergic/Immunologic Allergic/Immunologic ED: Denies mouth swelling, tongue swelling or urticaria EXAM Physical Exam Const Vital Signs: 06/20/24 08:56 06/20/24 08:59 06/20/24 08:59 Temperature 97.8 F 97.8 F Temperature Source Oral Oral Pulse Rate 111 H 110 H Respiratory Rate 26 H 28 H Respiratory Effort Short of Breath Respiratory Depth Shallow Respiratory Pattern Tachypnea Blood Pressure 148/97 H 148/97 H Blood Pressure Mean 114 114 Pulse Ox 96 97 Oxygen Delivery Method Room Air Room Air Room Air Oxygen Flow Rate (L/min) 06/20/24 09:19 06/20/24 09:31 06/20/24 09:33 Temperature Temperature Source Pulse Rate 101 H Respiratory Rate 26 H Respiratory Effort Respiratory Depth Respiratory Pattern Tachypnea Blood Pressure Blood Pressure Mean Pulse Ox 97 97 Oxygen Delivery Method Nasal Cannula Nasal Cannula Oxygen Flow Rate (L/min) 1 06/20/24 09:59 Temperature 98.7 F Temperature Source Temporal Pulse Rate 88 Respiratory Rate 24 H Respiratory Effort Respiratory Depth Respiratory Pattern Blood Pressure 149/83 H Blood Pressure Mean 105 Pulse Ox 98 Oxygen Delivery Method Nasal Cannula Oxygen Flow Rate (L/min) Positive well nourished and well developed General Appearance ED: well developed and NAD HEENT Reports TM's clear and moist mucous membranes normocephalic and atraumatic; Negative for trauma or tenderness Tympanic Membrane ED: Yes TM's clear Eyes PERRL and EOMs intact bilaterally General Eye ED: Negative for pale conjunctiva or scleral icterus Neck no lymphadenopathy, supple and no JVD General: Negative for tenderness Chest Wall inspection of chest normal and palpation of chest normal Chest: Negative for tenderness Resp normal respiratory effort and clear to auscultation bilaterally Resp Narrative: Diminished breath sounds bilaterally with some faint expiratory wheeze noted bilaterally. Mild conversational dyspnea. Mild tachypnea. No accessory muscle use or retractions. Effort and Inspection: Negative for respiratory distress or pain with movement Auscultation: wheezes; Negative for rhonchi or diminished lung sounds Cardio regular rhythm, S1 normal heart sound, S2 normal heart sound and no murmurs Rate: tachycardic Peripheral Pulses: pulses 2+ throughout GI normal to inspection, nondistended, normoactive bowel sounds, soft to palpation, non-tender, non-distended and no masses Back/Spine no CVA tenderness and no thoracic nor lumbar tenderness Extremity normal to inspection General Extremety ED: Negative for edema General Extremity: Negative for edema Neuro oriented x3, CN's II-XII intact bilaterally, no sensory deficits noted and gait normal Sensorium / Orientation: awake, alert, oriented to person, oriented to place and oriented to time Motor Exam: strength 5/5 throughout and strength abnormal Psych mental status grossly normal Skin no rashes or lesions noted and no wounds MDM MDM MDM Narrative Medical decision making narrative: Patient presents the emergency department with shortness of breath over the last couple days. She has a cough. Seen by PCP yesterday and started on an inhaler and also started on Tessalon Perles. She was wheezing on exam and has history of asthma and COPD. IV line established. CBC with differential obtained showed white count 7.0 with hemoglobin 9.2 and platelet count of 332. Chemistries unremarkable other than a depressed potassium at 3.1 for which I did order 40 mEq of potassium chloride p.o. Lactate slightly elevated 2.1. Troponin normal at 7. Chest x-ray was normal. D-dimer normal at 0.46. While in department she received DuoNeb aerosol and albuterol aerosols. She was started on Solu-Medrol 125 mg IV. On reevaluation she is feeling improved. I did give her a milligram of Ativan also because she was complaining of feeling anxious. Discussed results with patient and family members she is comfortable going home. She is feeling improved after treatment. Suspect likely COPD exacerbation/asthmatic bronchitis. Will start on doxycycline as well as prednisone. Advised to return if increasing shortness of breath or condition should worsen anyway. Will ambulate with pulse ox prior to discharge. Lab Data Attestation: I reviewed the patient's lab results. Labs: Laboratory Results - last 24 hr 06/20/24 06/20/24 09:08 09:27 WBC 7.0 RBC 4.51 Hgb 9.2 L Hct 32.8 L MCV 72.7 L MCH 20.4 L MCHC 28.0 L RDW Std Deviation 51.4 H RDW Coeff of Juan David 19.7 H Plt Count 332 MPV 8.4 Immature Gran % (Auto) 0.400 Neut % (Auto) 60.3 Lymph % (Auto) 27.8 Childress % (Auto) 11.0 H Eos % (Auto) 0.1 Baso % (Auto) 0.4 Absolute Neuts (auto) 4.2 Absolute Lymphs (auto) 1.95 Nucleated RBC % 0 D-Dimer Quant (PE/DVT) 0.46 Sodium 143 Potassium 3.1 L Chloride 110 H Carbon Dioxide 27.0 Anion Gap 6 BUN 5 L Creatinine 0.96 Estim Creat Clear Calc 51.19 Est GFR (MDRD) Af Amer 73 Est GFR (MDRD) Non-Af 60 BUN/Creatinine Ratio 5.2 L Glucose 105 Lactic Acid 2.1 H* Calcium 9.3 Troponin I High Sens 7 Radiography Diagnostic Testing: Clinical Impression(s) from Imaging Studies Chest X-Ray 06/20/24 09:57 IMPRESSION: Normal x-ray examination of the chest. Electronically Signed: Wesley Jose MD at 10:23 EST , 1 view chest x-ray obtained interpreted by myself as no evidence of infiltrate or pneumothorax or acute disease process. Radiology in agreement. EKG Initial EKG: Attestation: I personally reviewed and interpreted this EKG as follows: Comments: Sinus rhythm with rate of [address] changes Discharge Plan Triage Chief Complaint: Shortness of Breath ED Provider: Anh Irnee Dx/Rx/DC Orders Clinical Impression: Asthmatic bronchitis, COPD exacerbation, Anxiety Instructions: ED Anxiety Reaction, ED Bronchitis with Wheezing (Adult), ED COPD Flare Prescriptions: New doxycycline monohydrate 100 mg capsule 100 mg PO BID Qty: 20 0RF prednisone 20 mg tablet 20 mg PO BID Qty: 10 0RF No Action valacyclovir [Valtrex] 500 MG tablet 500 mg PO BID pantoprazole 40 MG tablet 40 mg PO DAILY trazodone 50 MG tablet 50 mg PO QHS buspirone 10 MG tablet 10 mg PO TID albuterol sulfate 1 INHALER inhaler 1 - 2 puff inhalation Q4H PRN PRN (Reason: Sob &/Or Wheezing) loratadine 10 MG tablet 10 mg PO DAILY clindamycin HCl 300 mg capsule 300 mg PO Q8H 7 Days Qty: 21 0RF Primary Care Provider: Esperanza Hector Referrals: Esperanza Hector DO [Primary Care Provider] - 3-5 Days Print Language: Kinyarwanda Disposition Disposition: Home, Self Care
--- NOTE | 2024-06-20 09:16 | EKG12_ITS ---
Test Reason : SOB Blood Pressure : */* mmHG Vent. Rate : 111 BPM Atrial Rate : 111 BPM P-R Int : 148 ms QRS Dur : 86 ms QT Int : 334 ms P-R-T Axes : 69 40 41 degrees QTcB Int : 454 ms Sinus tachycardia Nonspecific ST and T wave abnormality Abnormal ECG Baseline artifact Confirmed by Kilo Morse ([id number]), editor greeting card CATIA CARRASQUILLO ([id number]) on 06/21/2024 6:00:05 AM Referred By: Confirmed By: Kilo Morse
[2024-06-20] MEDS: MethylPREDNISolone 125 MG/2 ML Vial IV (09:25)
[2024-06-20] MEDS: Albuterol 2.5 MG/3 ML VIAL.NEB. INHALATION ×3 (09:30)
[2024-06-20] MEDS: Ipratropium/Albuterol Sulfate 3 ML AMPUL.NEB INHALATION (09:30)
[2024-06-20 09:34] LABS: Absolute Lymphocyte Count 1.95 X10^3/uL (0.83-4.51); Absolute Neutrophil Count 4.2 X10^3/uL (2.0-7.7); Basophil# 0.03 X10^3/uL; Basophil% 0.4 % (0-1); Eosinophil# 0.01 X10^3/uL; Eosinophils% 0.1 % (0-5); Hematocrit 32.8 % (37-47); Hemoglobin 9.2 g/dL (12.0-15.0); Lymphocyte # 1.95 X10^3/ul (0.83-4.51); Lymphocyte % 27.8 % (19-41); Mean Corpuscular Hgb 20.4 pg (27.0-32.0); Mean Corpuscular Volume 72.7 fL (81-99); Mean Platelet Vol. 8.4 fl (6.2-12.0); Monocyte# 0.77 X10^3/uL; NRBC Flagged by Analyzer 0 % (0-5); Neutrophil # 4.22 X10^3/uL (2.7-7.7); Neutrophil % 60.3 % (47-70); Platelet Count 332 K/mm3 (150-450); RBC Distribution Width CV 19.7 % (11.6-14.6); RBC Distribution Width SD 51.4 fl (35.1-43.9); Red Blood Count 4.51 M/mm3 (4.2-5.4)
[2024-06-20 09:45] LABS: D-Dimer Quantitative (DVT/PE) 0.46 FEU/ug/m (0.27-0.49)
[2024-06-20 09:55] LABS: Anion Gap 6 (5-15); BUN 5 mg/dL (7-18); BUN/Creat Ratio 5.2 RATIO (10-20); Calcium,Total 9.3 mg/dL (8.5-10.1); Chloride 110 mmol/L (98-107); Creatinine, Serum 0.96 mg/dL (0.55-1.02); EST Glomerular Filtration Rate 60 mL/min (>60); Est Glom Filt Rate - Afr Amer 73 mL/min (>60); Estimated Creatinine Clearance 51.19 ml/min; Glucose 105 mg/dL (74-106); Potassium 3.1 mmol/L (3.5-5.1); Sodium Level 143 mmol/L (136-145); Troponin-I HS 7 pg/mL (3.0-54.0)
--- NOTE | 2024-06-20 09:57 | RAD_ITS ---
STUDY: X-RAY CHEST REASON FOR EXAM: Female, 73 years old. dyspnea TECHNIQUE: Single AP portable view of the chest. COMPARISON: 02/08/2017 FINDINGS: The lungs are clear and expanded. There is no demonstrated pleural abnormality. Normal size heart. Normal mediastinum and nuzhat. Normal visualized pulmonary arteries. Normal visualized aortic arch and descending thoracic aorta. Normal visualized thoracic spine. Normal visualized ribs, clavicles, and shoulders. There is no demonstrated abnormality of the visualized soft tissue structures of the upper abdomen. RAD/Chest 1 View (Portable) IMPRESSION: Normal x-ray examination of the chest. Electronically Signed: Wesley Jose MD at 10:23 [facility] ,
[2024-06-20] MEDS: LORazepam 2 MG/ML Syringe 1 MG IV (10:21)
[2024-06-20] MEDS: Potassium Chloride Oral Tablet 20 MEQ 40 MEQ PO (10:51)
== END 2024-06-20 11:32 | disposition home or self-care (01) ==
PROVIDERS: Emergency Provider Emergency Medicine; PCP Family Medicine; Visit Provider Emergency Medicine
DX: J40 Bronchitis, not specified as acute or chronic (principal); J44.1 Chronic obstructive pulmonary disease with (acute) exacerbation; Z87.891 Personal history of nicotine dependence
CPT/HCPCS: 36415; 71045; 80048; 83605; 84484; 85025; 85379; 87040; 87631; 93005; 94640; 96374; 96375; 99285

== ENCOUNTER 2024-09-13 16:24 | Emergency (ER) | payer MEDICARE, SELFPAY ==
[2024-09-13] VITALS (7 sets, daily range): BP systolic 111–128; BP diastolic 81–93; PULSE 88–116; RESP 22–26; TEMP 36.3; O2SAT 93–96; BMI 30.2
[2024-09-13 17:19] LABS: Absolute Lymphocyte Count 1.62 X10^3/uL (0.83-4.51); Basophil# 0.04 X10^3/uL; Basophil% 0.7 % (0-1); Eosinophil# 0.02 X10^3/uL; Eosinophils% 0.4 % (0-5); Hematocrit 37.7 % (37-47); Hemoglobin 11.4 g/dL (12.0-15.0); Lymphocyte # 1.62 X10^3/ul (0.83-4.51); Lymphocyte % 29.3 % (19-41); Mean Corp Hgb Conc 30.2 g/dL (32-36); Mean Corpuscular Hgb 24.7 pg (27.0-32.0); Mean Corpuscular Volume 81.6 fL (81-99); Mean Platelet Vol. 8.5 fl (6.2-12.0); Monocyte# 0.79 X10^3/uL; Monocyte% 14.3 % (0-10); NRBC Flagged by Analyzer 0 % (0-5); Neutrophil # 3.03 X10^3/uL (2.7-7.7); Neutrophil % 54.9 % (47-70); POSITIVE MORPHOLOGY YES; Platelet Count 275 K/mm3 (150-450); RBC Distribution Width CV 22.8 % (11.6-14.6); RBC Distribution Width SD 65.5 fl (35.1-43.9); Red Blood Count 4.62 M/mm3 (4.2-5.4); White Blood Count 5.5 K/mm3 (4.4-11.0)
[2024-09-13 17:38] LABS: Anion Gap 12 (5-15); BUN 8 mg/dL (4-19); BUN/Creat Ratio 8.2 RATIO (10-20); Calcium 9.1 mg/dL (7.6-11.0); Carbon Dioxide 27.1 mmol/L (22.0-29.0); Chloride 101 mmol/L (96-108); EST Glomerular Filtration Rate 62 (>60); Glucose 112 mg/dL (70-99); Potassium 4.1 mmol/L (3.3-5.1); Sodium Level 139 mmol/L (133-145)
[2024-09-13 17:42] LABS: Differential Indicated SCAN CRITERIA MET
[2024-09-13 18:26] LABS: Anisocytosis 1+; Atypical Lymphocyte 1+ %; Target Cells 1+
[2024-09-13 18:28] LABS: Burr Cells RARE
--- NOTE | 2024-09-13 18:52 | RAD_ITS ---
PROCEDURE: PA and lateral chest radiographs, two views REASON FOR EXAM: Shortness of breath, wheezing TECHNIQUE: PA and lateral chest radiographs were obtained. COMPARISON: [id number] FINDINGS: Heart size is similar. Moderate hiatal hernia. No large focal airspace consolidation, pneumothorax, or pleural effusion. There is some fullness of the left AP window region on the PA view. Right lung is clear except for a 2 mm calcified granuloma medial right lung base on the PA view. There is a possible developing ovoid 2.2 cm nodule upper lateral left matt thorax on the PA view. The bones are osteopenic with degenerative changes in the spine. RAD/Chest PA and Lateral IMPRESSION: No acute findings in the chest. Possible developing 2.2 cm nodule lateral left upper lobe. There is also possi ble fullness of the left AP window region on the PA view, which could be due to mediastinal mass or adenopathy versus artifact. Recommend short-term follow-up contrast-enhanced chest CT to evaluate these findings. Moderate hiatal hernia. Reading Location: [facility]
--- NOTE | 2024-09-13 21:01 | ED.VIS.DYS ---
HPI History of Present Illness Chief Complaint: Shortness of Breath Detail of Chief Complaint: Shortness of breath for 6 months or longer. Informant: patient Onset/Context/Timing Onset: Month(s) Context: gradual Timing: Intermittent Quality: Positive for Dyspnea on exertion Current Severity: Mild Maximum Severity: Mild Worsened by: Exertion Relieved by: Albuterol Associated Symptoms Negative for cough Chest Pain: Positive for None Narrative Narrative: 73-year-old female history of COPD and asthma. No prior DVT or PE. No recent travel surgery immobilization. Said for 6 months in March she has had intermittent shortness of breath. She will take steroids he gets better then returns. Denies any chest pain. No leg pain or swelling. No hemoptysis. Denies any type of chest pain. PE Risk Factors: Negative for Cancer, OCP + Smoking + > 35, Prior DVT or PE, Recent immobilization, Recent surgery or Recent travel Prior similar symptoms: Yes Recent Illness/Hospitalization: No PFSH PFS Medical History COPD (chronic obstructive pulmonary disease) Home Medications ?Medication ?Instructions ?Recorded ?Last Taken ?Type pantoprazole 40 mg tablet,delayed 40 mg PO DAILY 02/09/16 Unknown History release valacyclovir 500 mg tablet 500 mg PO BID 02/09/16 Unknown History (Valtrex) albuterol sulfate 90 mcg/actuation 1 - 2 puff inhalation Q4H PRN PRN 08/24/19 Unknown History aerosol inhaler Sob &/Or Wheezing buspirone 10 mg tablet 10 mg PO TID 08/24/19 Unknown History loratadine 10 mg tablet 10 mg PO DAILY 08/24/19 Unknown History trazodone 50 mg tablet 50 mg PO QHS 08/24/19 Unknown History doxycycline monohydrate 100 mg 100 mg PO BID #20 CAPSULES 06/20/24 Unknown Rx capsule budesonide-formoterol HFA 80 inhalation 09/13/24 Unknown History mcg-4.5 mcg/actuation aerosol inhaler hydrochlorothiazide 25 mg tablet 25 mg PO DAILY 09/13/24 Unknown History oxycodone-acetaminophen 5 mg-325 1 tab PO TID PRN PRN pain 09/13/24 Unknown History mg tablet trazodone 100 mg tablet 150 mg PO QHS 09/13/24 Unknown History prednisone 20 mg tablet 40 mg (2 x 20 mg) PO DAILY 7 days 09/14/24 Unknown Rx #14 tabs Allergy/AdvReac Type Severity Reaction Status Date / Time alendronate sodium (From Allergy Pain in Verified 09/13/24 16:34 Fosamax) joints cefaclor (From Ceclor) Allergy Hives Verified 09/13/24 16:34 Penicillins Allergy Hives Verified 09/13/24 16:34 tramadol HCl (From Ultram) Allergy Hives Verified 09/13/24 16:34 erythromycin base AdvReac Nausea Verified 09/13/24 16:34 Family History no significant family his Surgical History History of appendectomy Previous back surgery Social History Smoking Status: Former smoker ROS ROS ED ROS Narrative Shortness of breath. Wheezing. Constitutional Constitutional ED: Denies chills or fever(s) Eyes Eyes: Denies blurry vision ENT ENT ED: Denies ear pain Cardiovascular Cardiovascular: Denies chest pain Respiratory/Chest Respiratory/Chest: Reports dyspnea and dyspnea on exertion Gastrointestinal Gastrointestinal: Denies abdominal pain, constipation, diarrhea, melena, nausea or vomiting Genitourinary Genitourinary ED: Denies dysuria or hematuria Musculoskeletal Musculoskeletal: Denies arthralgias or back pain Integumentary Denies abscess, Abrasions or rash Neurologic Neurologic: Denies headache(s) Psychiatric Psychiatric: Denies anxiety or depression Endocrine Endocrinology: Denies cold intolerance Hematologic/Lymphatic Hematologic/Lymphatic: Denies easy bleeding or easy bruising Allergic/Immunologic Allergic/Immunologic ED: Denies mouth swelling or tongue swelling EXAM Physical Exam Narrative Exam Narrative: 73-year-old female sitting upright in bed. Vital signs initially tachycardic but a pulse ox 95% on room air. She does not look septic toxic or in acute distress. Family at bedside. H EENT exam pupils round react light. Neck nontender no lymphadenopathy. Fullness at her thyroid but nontender. No palpable mass. Lungs clear to auscultation bilaterally. No rales rhonchi or wheezing. Equal symmetric. Heart sinus rhythm rate about 90. No murmur. Chest wall ribs nontender. No ecchymosis. No subcu air or crepitus. Abdomen soft nontender. Moving all 4 extremities. Calves are nontender. There is only trace edema both lower extremities she states that is chronic and has been there for many years. Normal hop strainer strength. Normal dorsi plantarflexion. Back nontender. Neurologically she is awake and alert. Const Vital Signs: 09/13/24 16:34 09/13/24 18:24 09/13/24 18:47 Temperature 97.3 F L Temperature Source Temporal Pulse Rate 116 H 97 Respiratory Rate 22 H Respiratory Effort Respiratory Depth Respiratory Pattern Blood Pressure 119/93 H 111/91 H Blood Pressure Mean 101 97 Pulse Ox 95 96 Oxygen Delivery Method Room Air Room Air Room Air 09/13/24 18:47 09/13/24 19:36 09/13/24 20:00 Temperature Temperature Source Pulse Rate 90 Respiratory Rate 26 H Respiratory Effort Short of Breath Respiratory Depth Deep Respiratory Pattern Tachypnea Blood Pressure 128/84 H Blood Pressure Mean 98 Pulse Ox 95 93 Oxygen Delivery Method Room Air Room Air Room Air 09/13/24 21:05 09/13/24 22:00 09/14/24 00:00 Temperature Temperature Source Pulse Rate 89 88 90 Respiratory Rate 24 H 25 H 20 H Respiratory Effort Respiratory Depth Respiratory Pattern Tachypnea Blood Pressure 128/81 H 159/86 H Blood Pressure Mean 96 110 Pulse Ox 93 93 Oxygen Delivery Method Room Air Room Air Positive well nourished and well developed; Negative for cachectic, contractures or unkempt General Appearance ED: well developed and NAD; Negative for unkempt, cachectic, contractures or pallor Nutritional Appearance: Negative for cachectic HEENT atraumatic; Negative for trauma or tenderness Eyes PERRL and EOMs intact bilaterally General Eye ED: Negative for pale conjunctiva or scleral icterus Neck no lymphadenopathy, supple, no meningeal signs and no JVD Neck Narrative: Fullness in her thyroid. No mass. General: Negative for tenderness Resp normal respiratory effort and clear to auscultation bilaterally Auscultation: Negative for rales, rhonchi, wheezes or diminished lung sounds Cardio regular rate, regular rhythm, S1 normal heart sound, S2 normal heart sound and no murmurs Rate: Negative for bradycardia or tachycardic Rhythm: Negative for abnormal rhythm GI non-tender, non-distended and no masses Auscultation: normoactive bowel sounds Palpation: soft; Negative for tender, guarding, mass or rebound tenderness present Back/Spine no CVA tenderness and normal to inspection General Back: Negative for CVA tenderness Extremity normal to inspection General Extremety ED: Negative for edema or tenderness General Extremity: Negative for edema Neuro oriented x3 and CN's II-XII intact bilaterally Wells Coma Scale: other Sensorium / Orientation: alert, oriented to person, oriented to place and oriented to time; Negative for orientation impaired or confused Speech: speech normal Motor Exam: strength 5/5 throughout Psych mental status grossly normal Appearance: Negative for unkempt Attitude: No agitated Mood & Affect: Negative for depressed, anxious or tearful Skin no wounds and skin turgor normal General Skin Exam: Negative for jaundice or pallor Lesions: no lesions Rashes: no rashes Trauma: Negative for abrasion MDM MDM MDM Narrative Medical decision making narrative: 71-year-old female 6-month history of shortness of breath may just be secondary to COPD. Chest x-ray shows a left upper lung mass. CT will be obtained. Clinically I think it is unlikely to be a PE. I am can obtain a CTA due to the mass which also evaluated for PE. To be treated with DuoNeb aerosol and oral prednisone. Repeat exam patient is doing well at 12:20 AM. She walked to the restroom was not having any breathing problems. She has had no chest pain. We went over her test results. My concern is for a possible left hilar and left upper lobe mass. This will need further evaluation and biopsy. She has appointment to see her primary care physician tomorrow. She needs to be set up with oncology and have a biopsy done. I will refer her to oncology here at the hospital. I discussed all this with both her and I believe with her son at bedside. She be written for prednisone because she said she feels its helped her. She felt the breathing treatment helped overnight. History & Record Review Discussion w/independent historian: Patient Additional record(s) reviewed:: Prior inpatient record, Prior outpatient record, Prior ED visit and Prior labs Lab Data Attestation: I reviewed the patient's lab results. Lab results narrative: CBC white count of 5. H&H 11.4 and 37. Platelets 275. Electrolytes show a gap 12. Normal BUN and creatinine of 8 and 1. Glucose 112. TSH is normal at 0.64. Initial troponin is 19. Patient has had this shortness of breath for 6 months. Labs: Laboratory Results - last 24 hr 09/13/24 17:04 WBC 5.5 RBC 4.62 Hgb 11.4 L Hct 37.7 MCV 81.6 MCH 24.7 L MCHC 30.2 L RDW Std Deviation 65.5 H RDW Coeff of Juan David 22.8 H Plt Count 275 MPV 8.5 Immature Gran % (Auto) 0.400 Neut % (Auto) 54.9 Lymph % (Auto) 29.3 [place] % (Auto) 14.3 H Eos % (Auto) 0.4 Baso % (Auto) 0.7 Absolute Neuts (auto) 3.0 Absolute Lymphs (auto) 1.62 Nucleated RBC % 0 Atypical Lymphocytes 1+ Anisocytosis 1+ Target Cells 1+ [place] Cells RARE Sodium 139 Potassium 4.1 Chloride Direct 101 Carbon Dioxide 27.1 Anion Gap 12 BUN 8 Creatinine 1.0 Est GFR (MDRD) Non-Af 62 BUN/Creatinine Ratio 8.2 L Glucose 112 H Calcium 9.1 Troponin T High Sens 19 H TSH 0.644 Radiography Chest X-Ray - ED: 2 View, Read by ED Physician, Read by Radiologist, Heart, Mediastinum, Bony Structures, Chronic Changes and - (Left upper lobe density possible mass.) Diagnostic Testing: Clinical Impression(s) from Imaging Studies Chest X-Ray 09/13/24 18:52 IMPRESSION: No acute findings in the chest. Possible developing 2.2 cm nodule lateral left upper lobe. There is also possible fullness of the left AP window region on the PA view, which could be due to mediastinal mass or adenopathy versus artifact. Recommend short-term follow-up contrast-enhanced chest CT to evaluate these findings. Moderate hiatal hernia. Reading Location: [facility] Chest CTA 09/13/24 21:45 IMPRESSION: 1. No CT evidence of acute pulmonary embolism. 2. Left hilar mass, left upper lobe pleural-based mass and large prevascular lymph node concerning for malignancy. 3. Diffuse emphysematous changes 4. Moderate pericardial effusion. 5. Large hiatal hernia One or more dose reduction techniques were used (e.g., Automated exposure control, adjustment of the mA and/or kV according to patient size, use of iterative reconstruction technique). Reading [facility] Chest x-ray, 2 views, AP and lateral, interpreted both by myself and the radiologist. There is a left upper lung fullness possible mass. Will need further evaluation. CT being obtained. No pneumonia. Chronic changes. Rhythm Strip Rhythm Strip: Sinus Rhythm Rate: 92 Ectopy: None EKG Initial EKG: Attestation: I personally reviewed and interpreted this EKG as follows: Interpretation: No Acute Injury Pattern Comments: Normal sinus rhythm rate 92 no acute signs of DE or ischemia. Discharge Plan Triage Chief Complaint: Shortness of Breath ED Provider: Chris Maria Dx/Rx/DC Orders Clinical Impression: Acute dyspnea, Lung mass, History of COPD Instructions: ED Dyspnea Prescriptions: New prednisone 20 mg tablet 40 mg PO DAILY 7 Days Qty: 14 0RF No Action valacyclovir [Valtrex] 500 MG tablet 500 mg PO BID pantoprazole 40 MG tablet 40 mg PO DAILY trazodone 50 MG tablet 50 mg PO QHS buspirone 10 MG tablet 10 mg PO TID albuterol sulfate 1 INHALER inhaler 1 - 2 puff inhalation Q4H PRN PRN (Reason: Sob &/Or Wheezing) loratadine 10 MG tablet 10 mg PO DAILY doxycycline monohydrate 100 mg capsule 100 mg PO BID Qty: 20 0RF oxycodone-acetaminophen 5-325 mg tablet 1 tab PO TID PRN PRN (Reason: pain) trazodone 100 mg tablet 150 mg PO QHS hydrochlorothiazide 25 mg tablet 25 mg PO DAILY budesonide-formoterol 80-4.5 mcg/actuation HFA aerosol inhaler INHALATION Patient Comments: [NO ORIGINAL SIG] Primary Care Provider: Esperanza Hector Referrals: Wilfrido Karimi MD [Med Staff - Active Staff] - As soon as possible Esperanza Hector DO [Primary Care Provider] - Keep Landy appointment Activity Restrictions/Additional Instructions: Follow-up with your doctor with your scheduled appointment tomorrow. Very important to follow-up you have 2 areas of concern on your left long that could be masses. These need to be biopsied to make sure this is not cancer. Prednisone daily for the next 7 days. Call and follow-up with our oncologist for further evaluation. Print Language: Kyrgyz Disposition Disposition: Home, Self Care
[2024-09-13] MEDS: Ipratropium/Albuterol Sulfate 3 ML AMPUL.NEB INHALATION (21:05)
--- NOTE | 2024-09-13 21:08 | EKG12_ITS ---
Test Reason : DYSRHYTHMIA Blood Pressure : */* mmHG Vent. Rate : 92 BPM Atrial Rate : 92 BPM P-R Int : 152 ms QRS Dur : 86 ms QT Int : 364 ms P-R-T Axes : 66 31 44 degrees QTcB Int : 450 ms Normal sinus rhythm Normal ECG Confirmed by Kilo Morse ([id number]), television news video editor CATIA CARRASQUILLO ([id number]) on 09/14/2024 9:34:36 AM Referred By: Confirmed By: Kilo Morse
[2024-09-13] MEDS: predniSONE 20 MG Tablet 60 MG PO (21:26)
--- NOTE | 2024-09-13 21:45 | CT_ITS ---
PROCEDURE: CTA CHEST W/WO CONTRAST REASON FOR EXAM: Dyspnea and left upper lung mass TECHNIQUE: CTA imaging of the chest with intravenous contrast. 3D reconstructions. COMPARISON: None. FINDINGS: Hardware: None. Lymph nodes: Prevascular lymph node measuring 2.9 x 2.9 cm. Heart: Moderate pericardial effusion RV/LV Diameter Ratio: N/A Thoracic Aorta: No thoracic aortic aneurysm or dissection. Pulmonary Vessels: No evidence of acute pulmonary emboli through the major subsegmental branches. Most Proximal Level of Embolus (if embolus present): N/A Lungs and Airways: Left hilar mass measuring 6.2 x 4.7 cm. Left upper lobe pleural-based mass measuring 15 x 20 mm image 174 of 252. Diffuse emphysematous changes. Pleura: No pleural effusion. No pneumothorax. Upper Abdomen: Visualized portions of the upper abdominal viscera are unremarkable. Bones: Bone windows are unremarkable. Other: Large hiatal hernia CT/CTA Chest W/WO Contrast IMPRESSION: 1. No CT evidence of acute pulmonary embolism. 2. Left hilar mass, left upper lobe pleural-based mass and large prevascular l ymph node concerning for malignancy. 3. Diffuse emphysematous changes 4. Moderate pericardial effusion. 5. Large hiatal hernia One or more dose reduction techniques were used (e.g., Automated exposure contr ol, adjustment of the mA and/or kV according to patient size, use of iterative reconstruction technique). Reading Location: [facility]
[2024-09-13 23:01] LABS: Thyroid Stim Hormone (TSH) 0.644 uIU/mL (0.300-4.200)
[2024-09-13 23:33] LABS: Troponin T High Sensitivity 19 ng/L (<=14)
[2024-09-14] VITALS: BP 159/86; PULSE 90; RESP 20; O2SAT 93
[2024-09-14 00:30] VITALS: BP 137/87; PULSE 87; RESP 19; TEMP 36.8; O2SAT 92
== END 2024-09-14 00:44 | disposition home or self-care (01) ==
PROVIDERS: Emergency Provider Emergency Medicine; PCP Family Medicine; Visit Provider Emergency Medicine
DX: R06.00 Dyspnea, unspecified (principal); J44.9 Chronic obstructive pulmonary disease, unspecified; R91.8 Other nonspecific abnormal finding of lung field; Z87.891 Personal history of nicotine dependence; Z79.51 Long term (current) use of inhaled steroids; Z79.899 Other long term (current) drug therapy
CPT/HCPCS: 71046; 71275; 80048; 84443; 84484; 85025; 87631; 93005; 94640; 94760; 99285; Q9967; A4216

== ENCOUNTER → 2024-09-22 | Outpatient (CLI) | payer MEDICARE, SELFPAY ==
[2024-09-22 10:34] LABS: Partial Thromboplast Time 21.2 Seconds (24.1-36.2)
[2024-09-22 10:35] LABS: International Normalized Ratio 0.9; Prothrombin Time (Protime)PT. 12.8 SECONDS (11.7-14.9)
== END | disposition home or self-care (01) ==
LOC: LAB 09:58
PROVIDERS: PCP Family Medicine; Referring Provider Nurse Practitioner Acute Care; Visit Provider Nurse Practitioner Acute Care
DX: I48.91 Unspecified atrial fibrillation (principal); R06.02 Shortness of breath
CPT/HCPCS: 36415; 85610; 85730

== ENCOUNTER → 2024-09-25 | Outpatient (CLI) | payer MEDICARE, SELFPAY | END | disposition home or self-care (01) | LOC: PSN 09:04 | PROVIDERS: PCP Family Medicine; Referring Provider Nurse Practitioner Acute Care; Visit Provider Nurse Practitioner Acute Care | DX: R06.02 Shortness of breath (principal) | CPT/HCPCS: 94060; 94726; 94729 ==

== ENCOUNTER 2024-10-05 13:51 | Emergency (ER) | payer MEDICARE, SELFPAY ==
[2024-10-05] VITALS (10 sets, daily range): BP systolic 111–136; BP diastolic 72–92; PULSE 92–112; RESP 16–22; TEMP 36.1–36.9; O2SAT 91–96; BMI 28.8
--- NOTE | 2024-10-05 14:31 | EKG12_ITS ---
Test Reason : CP/SOB Blood Pressure : */* mmHG Vent. Rate : 110 BPM Atrial Rate : 110 BPM P-R Int : 156 ms QRS Dur : 90 ms QT Int : 334 ms P-R-T Axes : 72 25 64 degrees QTcB Int : 452 ms Sinus tachycardia Otherwise normal ECG Confirmed by LUZ MYERS, DANNY ([id number]), photography editor KELLY HILL ([id number]) on 10/06/2024 8:05:15 AM Referred By: Confirmed By: DANNY ESCOBAR MD
--- NOTE | 2024-10-05 14:47 | EX.ED.DYSGE1 ---
HPI History of Present Illness Chief Complaint: Shortness of Breath Narrative Narrative: Patient is a 73-year-old female with past medical history of COPD, recent diagnosis of lung cancer scheduled to have a biopsy of her lung, thyroid and PET scan in the near future who presented to the emergency department with a chief complaint of worsening shortness of breath and left back pain as well as radiates across to her bra line as she states. According to family member bedside they called a physician and they advised her to go to the emergency department to be evaluated as her symptoms were worsening. Patient denies any blood thinner medications denies any history of blood clots. Patient states that she has become very short of breath when she tries to get up and walk. [facility] Medical History COPD (chronic obstructive pulmonary disease) Home Medications ?Medication ?Instructions ?Recorded ?Last Taken ?Type albuterol sulfate 90 mcg/actuation 1 - 2 puff inhalation Q4H PRN PRN 08/24/19 Unknown History aerosol inhaler Sob &/Or Wheezing buspirone 10 mg tablet 10 mg PO TID 08/24/19 Unknown History loratadine 10 mg tablet 10 mg PO DAILY 08/24/19 Unknown History budesonide-formoterol HFA 80 1 inh inhalation .x4 09/13/24 Unknown History mcg-4.5 mcg/actuation aerosol inhaler hydrochlorothiazide 25 mg tablet 25 mg PO DAILY 09/13/24 Unknown History oxycodone-acetaminophen 5 mg-325 1 tab PO TID PRN PRN pain 09/13/24 Unknown History mg tablet trazodone 100 mg tablet 100 mg PO QHS 09/13/24 Unknown History cholecalciferol (vitamin D3) 25 25 mcg PO QDAY 09/18/24 Unknown History mcg (1,000 unit) capsule multivitamin 1 tab PO QAM 09/18/24 Unknown History omega-3 fatty acids 1,000 mg 1,000 mg PO QDAY 09/18/24 Unknown History capsule albuterol sulfate 2.5 mg/3 mL 2.5 mg inhalation PRN PRN 09/22/24 Unknown History (0.083 %) solution for nebulization shortness of breath or wheezing cetirizine 10 mg tablet (24Hour 10 mg PO DAILY 10/05/24 Unknown History Allergy) gabapentin 300 mg capsule 300 mg PO TID 10/05/24 Unknown History melatonin 2.5 mg chewable tablet 2.5 mg PO QHS 10/05/24 Unknown History meloxicam 15 mg tablet 15 mg PO DAILY 10/05/24 Unknown History simvastatin 20 mg tablet 20 mg PO QHS 10/05/24 Unknown History valacyclovir 500 mg tablet 500 mg PO BID 10/05/24 Unknown History vitamin E 268 mg (400 unit) capsule 268 mg PO DAILY 10/05/24 Unknown History Allergy/AdvReac Type Severity Reaction Status Date / Time Opioids - Morphine Analogues Allergy Severe Hives Verified 10/05/24 13:55 alendronate sodium (From Allergy Pain in Verified 10/05/24 13:55 Fosamax) joints cefaclor (From Ceclor) Allergy Hives Verified 10/05/24 13:55 Penicillins Allergy Hives Verified 10/05/24 13:55 tramadol HCl (From Ultra) Allergy Hives Verified 10/05/24 13:55 erythromycin base AdvReac Nausea Verified 10/05/24 13:55 Family History Mother Leukemia Grandfather Brain cancer Father Respiratory disease Surgical History History of eyelid surgery History of shoulder surgery History of carpal tunnel release History of bilateral knee replacement H/O breast biopsy History of appendectomy Previous back surgery Social History Smoking Status: Former smoker Tobacco: How many years used: 30 alcohol intake: never ROS ROS ED ROS Narrative Constitutional: Denies fevers, chills, headaches, lightness, dizziness Eyes: Denies change in vision double vision blurry vision Cardiovascular: Denies chest pain or palpitations Respiratory: Complains shortness of breath as noted above Abdomen: Denies abdominal pain nausea vomit diarrhea : Denies urinary symptoms Neurological: Denies numbness, weakness, tingling Musculoskeletal: Complains of back pain as noted above Skin: Denies rashes or lesions EXAM Physical Exam Narrative Exam Narrative: General: Patient lying in bed did not appear to be short of breath no acute distress Head: Atraumatic, normocephalic Eyes: PERRL bilaterally, EOMI bilateral, no conjunctival injection noted Neck: Soft, supple, trachea midline Cardiovascular: Patient tachycardic with a regular rhythm no murmurs gallops rubs noted Respiratory: Diminished breath sounds bilaterally Abdomen: Soft, nondistended, nontender to palpation Extremities: +4/5 strength noted in the bilateral upper and lower extremities, no pedal edema on exam Neurological: Patient following commands and that she was at [facility] year is 2024 Skin: Warm, dry, intact no rashes or lesions noted Const Vital Signs: 10/05/24 13:52 10/05/24 14:07 10/05/24 14:26 Temperature 96.9 F L 98.4 F Temperature Source Temporal Oral Pulse Rate 112 H 107 H Respiratory Rate 19 H 16 Respiratory Effort Short of Breath Respiratory Depth Shallow Respiratory Pattern Tachypnea Blood Pressure 136/87 H 113/72 Blood Pressure Mean 103 85 Pulse Ox 94 94 Oxygen Delivery Method Room Air Room Air Room Air 10/05/24 14:46 10/05/24 15:00 10/05/24 15:08 Temperature Temperature Source Pulse Rate 110 H 100 Respiratory Rate 20 H 17 Respiratory Effort Respiratory Depth Respiratory Pattern Normal Blood Pressure 123/92 H Blood Pressure Mean 102 Pulse Ox 93 Oxygen Delivery Method Room Air Room Air 10/05/24 16:00 10/05/24 17:00 Temperature Temperature Source Pulse Rate 102 H 101 H Respiratory Rate 22 H 22 H Respiratory Effort Respiratory Depth Respiratory Pattern Blood Pressure 117/77 111/82 H Blood Pressure Mean 90 91 Pulse Ox 91 93 Oxygen Delivery Method Room Air Room Air MDM MDM MDM Narrative Medical decision making narrative: Patient is a 73-year-old female who presented to the emergency department chief complaint of shortness of breath and back pain. On the differential diagnose includes but not limited to pneumothorax, pneumonia, pulmonary embolism, CHF, pleural effusion. Once workup is obtained reviewed she will be reevaluated. Patient be given 2 DuoNebs. Patient CBC was reviewed and showed no evidence leukocytosis white blood count normal at 4.7, hemoglobin 12.3, plate count was noted be 278. Patient's INR normal at 1, PT of 12.9. Patient sodium normal 141, potassium 3.3, creatinine was noted be 0.99. Patient AST and ALT are 20 and 11 respectively. Patient's troponin was noted be 17. Patient's EKG was reviewed and showed sinus tachycardia the rate of 110 bpm delta troponin pending. Patient proBNP noted be normal at 166. Patient's chest x-ray reviewed by myself and by radiology which showed patchy airspace disease of the left lung field could be atelectasis and/or multifocal pneumonia. Underlying pulmonary mass cannot be clearly visualized as a head CT dated on 09/13/2024. Cardiomegaly and mild congestion. Ordered a dose of Levaquin. Patient CTA of her chest was reviewed showed no pulmonary embolism identified. Some of the distal pulmonary arteries cannot be evaluated due to the suboptimal opacification., Limited left perihilar mass measuring up to 6.7 cm. Associated atelectasis of the lingula new since prior exam moderate esophageal hiatal hernia. 2.5 cm subpleural nodule of the left lower lobe unchanged. Patient does have a left pleural effusion noted as well. Patient was ambulated here in the emergency department and became hypoxic to 86% on room air. Will attempt to transfer the patient to [facility] as she has a EBUS scheduled on Wednesday. Discussed case with hospitalist at [facility] Dr. Rodriguez who accept patient for transfer. Patient was accepted for transfer at 5:15 PM on 10/05/2024. Discussed the results and the plan with the patient and family bedside they are agreeable this plan all question concerns answered at bedside. Lab Data Labs: Laboratory Results - last 24 hr 10/05/24 10/05/24 14:40 15:40 WBC 4.7 RBC 4.80 Hgb 12.3 Hct 39.2 MCV 81.7 MCH 25.6 L MCHC 31.4 L RDW Std Deviation 56.2 H RDW Coeff of Juan David 19.0 H Plt Count 278 MPV 8.8 Immature Gran % (Auto) 0.200 Neut % (Auto) 63.2 Lymph % (Auto) 23.3 [place] % (Auto) 12.9 H Eos % (Auto) 0.0 Baso % (Auto) 0.4 Absolute Neuts (auto) 3.0 Absolute Lymphs (auto) 1.10 Nucleated RBC % 0 PT 12.9 INR 1.0 APTT 22.2 L Sodium 141 Potassium 3.3 Chloride 102 Carbon Dioxide 25.1 Anion Gap 14 BUN 10 Creatinine 0.99 Estim Creat Clear Calc 49.48 L Est GFR (MDRD) Non-Af 61 BUN/Creatinine Ratio 10.0 Glucose 107 H Lactic Acid 1.4 Calcium 9.6 Total Bilirubin 0.17 AST 20 ALT 11 Alkaline Phosphatase 57 Troponin T High Sens 17 H D NT pro BNP II 166 Total Protein 7.2 Albumin 4.2 Globulin 3.0 Albumin/Globulin Ratio 1.4 Radiography Diagnostic Testing: Clinical Impression(s) from Imaging Studies Chest X-Ray 10/05/24 14:50 IMPRESSION: 1. Patchy airspace disease of the left lung field could be atelectasis and/or multifocal pneumonia. Underlying pulmonary mass can not be clearly visualized as in CT dated 09/13/2024. 2. Cardiomegaly with mild congestion. Reading Location: [facility] Chest CTA 10/05/24 15:40 IMPRESSION: 1. No pulmonary embolism is identified. Some of the distal pulmonary arteries cannot be evaluated due to suboptimal opacification. 2. 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 Associated atelectasis of the lingula, new since prior exam. 3. Moderate esophageal hiatal hernia. 4. 2.5 cm subpleural nodule of the left lower lobe, unchanged. Reading Location: [facility] Discharge Plan Triage Chief Complaint: Shortness of Breath ED Provider: Marty Woods Dx/Rx/DC Orders Clinical Impression: Acute hypoxemic respiratory failure, Dyspnea on exertion, Pleural effusion on left, Mass of left lung Prescriptions: No Action cholecalciferol (vitamin D3) 25 mcg (1,000 unit) capsule 25 mcg PO QDAY multivitamin Tablet 1 tab PO QAM omega-3 fatty acids 1,000 mg capsule 1,000 mg PO QDAY albuterol sulfate 2.5 mg /3 mL (0.083 %) solution for nebulization 2.5 mg inhalation PRN PRN (Reason: shortness of breath or wheezing) Patient Comments: [NO ORIGINAL SIG] buspirone 10 MG tablet 10 mg PO TID albuterol sulfate 1 INHALER inhaler 1 - 2 puff inhalation Q4H PRN PRN (Reason: Sob &/Or Wheezing) loratadine 10 MG tablet 10 mg PO DAILY cetirizine [24Hour Allergy] 10 mg tablet 10 mg PO DAILY melatonin 2.5 mg tablet,chewable 2.5 mg PO QHS valacyclovir 500 mg tablet 500 mg PO BID simvastatin 20 mg tablet 20 mg PO QHS vitamin E 268 mg (400 unit) capsule 268 mg PO DAILY meloxicam 15 mg tablet 15 mg PO DAILY gabapentin 300 mg capsule 300 mg PO TID oxycodone-acetaminophen 5-325 mg tablet 1 tab PO TID PRN PRN (Reason: pain) trazodone 100 mg tablet 100 mg PO QHS hydrochlorothiazide 25 mg tablet 25 mg PO DAILY budesonide-formoterol 80-4.5 mcg/actuation HFA aerosol inhaler 1 inh INHALATION .x4 Patient Comments: [NO ORIGINAL SIG] Rx Instructions: 2 puffs in morning, 2 puffs at night Primary Care Provider: Esperanza Hector Referrals: Esperanza Hector DO [Primary Care Provider] - Print Language: Croatian Disposition Disposition: DC/Tx to Another Type of HCF
--- NOTE | 2024-10-05 14:50 | RAD_ITS ---
EXAM: XR Chest, 2 Views CLINICAL INDICATION: HX OF LUNG CANCER, SOB TECHNIQUE: Frontal and lateral views of the chest. COMPARISON: No relevant prior studies available. FINDINGS: LUNGS AND PLEURAL SPACES: Patchy airspace disease of the left lung field could be atelectasis and/or multifocal pneumonia. Underlying pulmonary mass can not be clearly visualized as in CT dated 09/13/2024. HEART: Cardiomegaly with mild congestion. MEDIASTINUM: Unremarkable. Normal mediastinal contour. BONES/JOINTS: Unremarkable. No acute fracture. RAD/Chest PA and Lateral IMPRESSION: 1. Patchy airspace disease of the left lung field could be atelectasis and/or multifocal pneumonia. Underlying pulmonary mass can not be clearly visualized as in CT dated 09/13/2024. 2. Cardiomegaly with mild congestion. Reading [facility]
[2024-10-05 14:52] LABS: Basophil# 0.02 X10^3/uL; Basophil% 0.4 % (0-1); Hematocrit 39.2 % (37-47); Hemoglobin 12.3 g/dL (12.0-15.0); Lymphocyte % 23.3 % (19-41); Mean Corp Hgb Conc 31.4 g/dL (32-36); Mean Corpuscular Hgb 25.6 pg (27.0-32.0); Mean Corpuscular Volume 81.7 fL (81-99); Mean Platelet Vol. 8.8 fl (6.2-12.0); Monocyte# 0.61 X10^3/uL; Monocyte% 12.9 % (0-10); NRBC Flagged by Analyzer 0 % (0-5); Neutrophil # 2.99 X10^3/uL (2.7-7.7); Neutrophil % 63.2 % (47-70); Platelet Count 278 K/mm3 (150-450); RBC Distribution Width SD 56.2 fl (35.1-43.9); White Blood Count 4.7 K/mm3 (4.4-11.0)
[2024-10-05] MEDS: Ipratropium/Albuterol Sulfate 3 ML AMPUL.NEB INHALATION ×2 (15:08→15:10)
[2024-10-05 15:16] LABS: Partial Thromboplast Time 22.2 Seconds (24.1-36.2); Prothrombin Time (Protime)PT. 12.9 SECONDS (11.7-14.9)
[2024-10-05] MEDS: Lorazepam 2 MG/ML WCH Syringe 0.5 MG IV (15:16)
--- NOTE | 2024-10-05 15:40 | CT_ITS ---
EXAM: CT Angiography Chest Without and With Intravenous Contrast CLINICAL INDICATION: SOB, HX OF LUNG CANCER TECHNIQUE: Axial computed tomographic angiography images of the chest without and with intravenous contrast. This CT exam was performed using one or more of the following dose reduction techniques: automated exposure control, adjustment of the mA and/or kV according to patient size, and/or use of iterative reconstruction technique. MIP reconstructed images were created and reviewed. COMPARISON: CTA Chest dated 09/13/2024 FINDINGS: LIMITATIONS: Suboptimal opacification of the pulmonary arteries. PULMONARY ARTERIES: No pulmonary embolism is identified. Some of the distal pulmonary arteries cannot be evaluated due to suboptimal opacification. AORTA: No acute findings. No thoracic aortic aneurysm. LUNGS AND PLEURAL SPACES: Conglomerate left perihilar mass measuring up to 6.7 cm. Associated atelectasis of the lingula, new since prior exam. Left pleural effusion. 2.5 cm subpleural nodule of the left lower lobe, unchanged. Lung emphysema/COPD. No pneumothorax. HEART: Unremarkable. No cardiomegaly. No significant pericardial effusion. No evidence of RV dysfunction. MEDIASTINUM: Moderate esophageal hiatal hernia. BONES/JOINTS: No acute fracture. No dislocation. SOFT TISSUES: Unremarkable. LYMPH NODES: Unremarkable. No enlarged lymph nodes. CT/CTA Chest W/WO Contrast IMPRESSION: 1. No pulmonary embolism is identified. Some of the distal pulmonary arteries cannot be evaluated due to suboptimal opacification. 2. 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 Associated atelec tasis of the lingula, new since prior exam. 3. Moderate esophageal hiatal hernia. 4. 2.5 cm subpleural nodule of the left lower lobe, unchanged. Reading Location[facility]
[2024-10-05 16:03] LABS: Lactic Acid 1.4 mmol/L (0.0-2.0)
[2024-10-05 16:04] LABS: ALB/GLOB Ratio 1.4 RATIO (0.9-2.4); AST(SGOT) 20 U/L (<=31); Alanine Aminotransfer ALT/SGPT 11 U/L (<=34); Albumin, Serum 4.2 g/dL (3.4-4.8); Alkaline Phosphatase 57 U/L (35-104); Anion Gap 14 (5-15); BUN 10 mg/dL (4-19); Calcium,Total 9.6 mg/dL (7.6-11.0); Carbon Dioxide 25.1 mmol/L (21.0-32.0); Chloride 102 mmol/L (98-108); Creatinine, Serum 0.99 mg/dL (0.70-1.20); EST Glomerular Filtration Rate 61 (>60); Estimated Creatinine Clearance 49.48 ml/min (50-250); Glucose 107 mg/dL (70-99); Potassium 3.3 mmol/L (3.3-5.1); Protein, Total 7.2 g/dL (5.9-8.4); Sodium Level 141 mmol/L (133-145); Total Bilirubin 0.17 mg/dL (0.00-1.30)
[2024-10-05 16:12] LABS: Pro- Brain NATRIURETIC PEPTIDE 166 pg/mL (<=900)
[2024-10-05 16:28] LABS: Troponin T High Sensitivity 17 ng/L (<=14)
[2024-10-05] MEDS: levoFLOXacin IV 750 MG/150 ML BAG 100 MG IV (17:07)
--- NOTE | 2024-10-05 18:03 | ED.RN ---
ABDULLAHI CALLED @1730 WITH A BED FOR HER. PHYSICIANS WILL BE HERE AT 1830 TO PICK HER UP. SHE IS GOING TO [address] [id number].
[2024-10-05 19:14] LABS: Troponin T High Sens 2 HR 16 ng/L (<=14)
== END 2024-10-05 18:59 | disposition other institution (70) ==
PROVIDERS: Emergency Provider Emergency Medicine; PCP Family Medicine; Visit Provider Emergency Medicine
DX: J96.01 Acute respiratory failure with hypoxia (principal); J44.9 Chronic obstructive pulmonary disease, unspecified; J90 Pleural effusion, not elsewhere classified; Z79.51 Long term (current) use of inhaled steroids; Z79.899 Other long term (current) drug therapy; Z87.891 Personal history of nicotine dependence
CPT/HCPCS: 71046; 71275; 80053; 83605; 83880; 84484; 85025; 85610; 85730; 87040; 87631; 93005; 94640; 99285; Q9967; A4216

== ENCOUNTER → 2024-10-10 | Outpatient (CLI) | payer MEDICARE, SELFPAY ==
--- NOTE | 2024-10-10 | ASPIG_PTH ---
PATIENT: KARINA WARD LOC: CT U#:[id number] AGE/SX: 73/F ROOM: RE10/10/[address]: Dr. Esperanza Hector DO : 1950 BED: DIS: 10/10/2024 SPEC #: [id number] RECD: 10/10/24 13:36 STATUS: MARY GUERA #: [id number] GUI: 10/10/24 00:[address]: Esperanza Hector DEPT: CYTOLOGY RECD BY: Nikita De La Paz Tissues: Thyroid gland, NOS Procedures: FNA Specimen Adequacy Special Stain Group II Surgery Specimen Level IV Cytology Other HEADER OPERATION: Ultrasound guided thyroid fine needle aspiration PRE-OP DIAGNOSIS: Thyroid nodule TISSUE SUBMITTED: A- Thyroid nodule DIAGNOSIS CYTOLOGY Thyroid nodule, site not designated, FNA: * No malignant cells identified. * Benign follicular cells and colloid. COMMENT The slides were reviewed in intradepartmental consultation by Dr Pedro Luis Carter ([facility]). CYTOLOGY STUDY Slides are reviewed. CYTOLOGY GROSS A. Received is 2 passes of a thyroid specimen labeled with the patient's name and and designated per the requisition as Thyroid nodule. Submitted for cytology preparation (cellblock, DiffQuik smear x2 slides, pap smear x2 slides, cytospin x2 slides). Mr 10/10/2024 CPT: 20966
--- NOTE | 2024-10-10 09:15 | US_ITS ---
EXAM: Ultrasound guided right thyroid biopsy. CLINICAL HISTORY: Multinodular goiter. Request for tissue sampling of 1 lower pole nodule in the right COMPARISON: Images from a recent outside ultrasound exam with report were 1st reviewed. TECHNIQUE: See below. FINDINGS: Informed consent was obtained. Preliminary ultrasound evaluation revealed diffuse enlarged bilateral multinodular goiter. Lower pole nodule was targeted as per request. Direct sonographic guidance and aseptic technique were utilized. Pass was made directly into 1 lower pole nodule as previously designated and under real-time visualization using multi sampling technique multiple areas within the nodule were sampled on the single needle puncture. Obtained was examined immediately on site by the pathologist and found to be satisfactory. Patient tolerated the procedure well and was discharged directly to home. US/FNA 1st Biopsy w/ US IMPRESSION: Uneventful ultrasound-guided right thyroid biopsy. Multinodular goiter is note d. Reading Location: [place] [id number]
== END | disposition home or self-care (01) ==
PROVIDERS: PCP Family Medicine; Referring Provider Family Medicine; Visit Provider Family Medicine
DX: E04.1 Nontoxic single thyroid nodule (principal); R19.8 Other specified symptoms and signs involving the digestive system and abdomen
CPT/HCPCS: 10005; 88161; 88172; 88305; 88313

== ENCOUNTER 2024-10-21 15:05 | Emergency (ER) | payer MEDICARE, SELFPAY ==
[2024-10-21] VITALS (12 sets, daily range): BP systolic 91–120; BP diastolic 63–77; PULSE 74–105; RESP 14–27; TEMP 36.6–36.9; O2SAT 95–99; BMI 29.2
--- NOTE | 2024-10-21 15:14 | EKG12_ITS ---
Test Reason : SOB Blood Pressure : */* mmHG Vent. Rate : 97 BPM Atrial Rate : 97 BPM P-R Int : 154 ms QRS Dur : 86 ms QT Int : 348 ms P-R-T Axes : 79 43 67 degrees QTcB Int : 441 ms Normal sinus rhythm Normal ECG Confirmed by CHARLENE MYERS, YARIEL ([id number]), newspaper editor CATIA CARRASQUILLO ([id number]) on 10/23/2024 5:59:38 AM Referred By: Confirmed By: AYRIEL CHANG MD
--- NOTE | 2024-10-21 15:15 | EX.ED.DYSGE1 ---
HPI History of Present Illness Chief Complaint: Shortness of Breath Narrative Narrative: 73-year-old female, past medical history of small cell lung carcinoma, had a recent PET scan, presents with low blood pressure today with feelings of lightheadedness and increased difficulty breathing. She presents with her daughter, states that she woke up this morning and she had more hoarse voice and laryngitis. She notes that her blood pressure was low. Initially it was only 90 systolic. Throughout the day, it has been as high as 110, and even 100 systolic. She became more short of breath today. She had a recent admission and transfer to [facility] and her daughter states that when she was released she was placed on as needed oxygen because she was hypoxic and wears 2 to 3 L as needed. Patient quit smoking last year. She was concerned more about her blood pressure being low today. No recent fevers or chills, no cough that is new. She does have history of hypertension and is on blood pressure medication according to her daughter. [facility] Medical History COPD (chronic obstructive pulmonary disease) Home Medications ?Medication ?Instructions ?Recorded ?Last Taken ?Type albuterol sulfate 90 mcg/actuation 1 - 2 puff inhalation Q4H PRN PRN 08/24/19 Unknown History aerosol inhaler Sob &/Or Wheezing buspirone 10 mg tablet 10 mg PO TID 08/24/19 Unknown History loratadine 10 mg tablet 10 mg PO DAILY 08/24/19 Unknown History budesonide-formoterol HFA 80 1 inh inhalation .x4 09/13/24 Unknown History mcg-4.5 mcg/actuation aerosol inhaler hydrochlorothiazide 25 mg tablet 25 mg PO DAILY 09/13/24 Unknown History oxycodone-acetaminophen 5 mg-325 1 tab PO TID PRN PRN pain 09/13/24 Unknown History mg tablet trazodone 100 mg tablet 100 mg PO QHS 09/13/24 Unknown History cholecalciferol (vitamin D3) 25 25 mcg PO QDAY 09/18/24 Unknown History mcg (1,000 unit) capsule multivitamin 1 tab PO QAM 09/18/24 Unknown History omega-3 fatty acids 1,000 mg 1,000 mg PO QDAY 09/18/24 Unknown History capsule albuterol sulfate 2.5 mg/3 mL 2.5 mg inhalation PRN PRN 09/22/24 Unknown History (0.083 %) solution for nebulization shortness of breath or wheezing cetirizine 10 mg tablet (24Hour 10 mg PO DAILY 10/05/24 Unknown History Allergy) gabapentin 300 mg capsule 300 mg PO TID 10/05/24 Unknown History melatonin 2.5 mg chewable tablet 2.5 mg PO QHS 10/05/24 Unknown History meloxicam 15 mg tablet 15 mg PO DAILY 10/05/24 Unknown History simvastatin 20 mg tablet 20 mg PO QHS 10/05/24 Unknown History valacyclovir 500 mg tablet 500 mg PO BID 10/05/24 Unknown History vitamin E 268 mg (400 unit) capsule 268 mg PO DAILY 10/05/24 Unknown History Allergy/AdvReac Type Severity Reaction Status Date / Time Opioids - Morphine Analogues Allergy Severe Hives Verified 10/21/24 15:06 alendronate sodium (From Allergy Pain in Verified 10/21/24 15:06 Fosamax) joints cefaclor (From Ceclor) Allergy Hives Verified 10/21/24 15:06 Penicillins Allergy Hives Verified 10/21/24 15:06 tramadol HCl (From Ultra) Allergy Hives Verified 10/21/24 15:06 erythromycin base AdvReac Nausea Verified 10/21/24 15:06 Family History Mother Leukemia Grandfather Brain cancer Father Respiratory disease Surgical History History of eyelid surgery History of shoulder surgery History of carpal tunnel release History of bilateral knee replacement H/O breast biopsy History of appendectomy Previous back surgery Social History Smoking Status: Former smoker Tobacco: How many years used: 30 alcohol intake: never ROS ROS ED ROS Narrative Constitutional: No fever, no chills. Low blood pressure today. HEENT: No sore throat. No neck pain. Hoarse voice/laryngitis no rhinorrhea. Cardiovascular: No chest pain. No palpitations. No pedal edema. Respiratory: No cough, no shortness of breath. Abdominal: No abdominal pain. No nausea. No vomiting. Genitourinary: No dysuria. No hematuria. Musculoskeletal: No myalgias. No arthralgias. Neurologic: No headaches. No dizziness. Positive lightheadedness. Psychiatric: No depression. No anxiety. EXAM Physical Exam Narrative Exam Narrative: Afebrile. Vital signs noted. Nontoxic-appearing. Cardiovascular examination reveals intermittent tachycardia just above 100 bpm. Lungs are clear to auscultation bilaterally, decreased breath sounds on left, moving a good amount of air, able to speak in full sentences with mild tachypnea at times. Abdomen is soft nontender. No noted pedal edema. Neurological examination is nonfocal and nonlateralizing. Const Vital Signs: 10/21/24 15:05 10/21/24 15:05 10/21/24 15:11 Temperature 98.4 F 98.4 F Temperature Source Oral Oral Pulse Rate 105 H 104 H Pulse Rate [Lying] Pulse Rate [Sitting (for 1 minute prior to obtaining)] Pulse Rate [Standing (for 1 minute prior to obtaining)] Respiratory Rate 21 H 20 H Respiratory Effort Short of Breath Labored Accessory Muscle Use Respiratory Pattern Tachypnea Blood Pressure 120/77 120/77 Blood Pressure [Lying] Blood Pressure [Sitting (for 1 minute prior to obtaining)] Blood Pressure [Standing (for 1 minute prior to obtaining)] Blood Pressure Mean 91 91 Blood Pressure Mean [Lying] Blood Pressure Mean [Sitting (for 1 minute prior to obtaining)] Blood Pressure Mean [Standing (for 1 minute prior to obtaining)] Pulse Ox 95 97 Oxygen Delivery Method Nasal Cannula Nasal Cannula Oxygen Flow Rate (L/min) 2 2 10/21/24 15:21 10/21/24 15:28 10/21/24 15:28 Temperature Temperature Source Pulse Rate 98 88 Pulse Rate [Lying] Pulse Rate [Sitting (for 1 minute prior to obtaining)] Pulse Rate [Standing (for 1 minute prior to obtaining)] Respiratory Rate 27 H 17 Respiratory Effort Respiratory Pattern Normal Blood Pressure Blood Pressure [Lying] Blood Pressure [Sitting (for 1 minute prior to obtaining)] Blood Pressure [Standing (for 1 minute prior to obtaining)] Blood Pressure Mean Blood Pressure Mean [Lying] Blood Pressure Mean [Sitting (for 1 minute prior to obtaining)] Blood Pressure Mean [Standing (for 1 minute prior to obtaining)] Pulse Ox 99 98 Oxygen Delivery Method Nasal Cannula Oxygen Flow Rate (L/min) 2 10/21/24 15:30 10/21/24 15:31 10/21/24 15:43 Temperature Temperature Source Pulse Rate 91 84 75 Pulse Rate [Lying] Pulse Rate [Sitting (for 1 minute prior to obtaining)] Pulse Rate [Standing (for 1 minute prior to obtaining)] Respiratory Rate 15 15 Respiratory Effort Respiratory Pattern Blood Pressure 93/75 93/75 Blood Pressure [Lying] Blood Pressure [Sitting (for 1 minute prior to obtaining)] Blood Pressure [Standing (for 1 minute prior to obtaining)] Blood Pressure Mean 83 81 Blood Pressure Mean [Lying] Blood Pressure Mean [Sitting (for 1 minute prior to obtaining)] Blood Pressure Mean [Standing (for 1 minute prior to obtaining)] Pulse Ox 97 97 98 Oxygen Delivery Method Nasal Cannula Oxygen Flow Rate (L/min) 2 10/21/24 15:43 10/21/24 15:45 10/21/24 15:45 Temperature Temperature Source Pulse Rate 84 74 Pulse Rate [Lying] 79 Pulse Rate [Sitting (for 1 minute prior to obtaining)] 83 Pulse Rate [Standing (for 1 minute prior to obtaining)] 96 Respiratory Rate 14 18 Respiratory Effort Respiratory Pattern Blood Pressure 99/63 91/65 Blood Pressure [Lying] 99/63 Blood Pressure [Sitting (for 1 minute prior to obtaining)] 91/65 Blood Pressure [Standing (for 1 minute prior to obtaining)] 94/75 Blood Pressure Mean 74 75 Blood Pressure Mean [Lying] 75 Blood Pressure Mean [Sitting (for 1 minute prior to obtaining)] 73 Blood Pressure Mean [Standing (for 1 minute prior to obtaining)] 81 Pulse Ox 97 98 Oxygen Delivery Method Oxygen Flow Rate (L/min) 10/21/24 15:47 10/21/24 16:00 10/21/24 16:15 Temperature Temperature Source Pulse Rate 88 83 Pulse Rate [Lying] Pulse Rate [Sitting (for 1 minute prior to obtaining)] Pulse Rate [Standing (for 1 minute prior to obtaining)] Respiratory Rate 22 H 22 H Respiratory Effort Respiratory Pattern Blood Pressure 94/75 109/77 107/76 Blood Pressure [Lying] Blood Pressure [Sitting (for 1 minute prior to obtaining)] Blood Pressure [Standing (for 1 minute prior to obtaining)] Blood Pressure Mean 82 88 87 Blood Pressure Mean [Lying] Blood Pressure Mean [Sitting (for 1 minute prior to obtaining)] Blood Pressure Mean [Standing (for 1 minute prior to obtaining)] Pulse Ox 98 98 Oxygen Delivery Method Oxygen Flow Rate (L/min) 10/21/24 16:39 Temperature 97.9 F Temperature Source Pulse Rate 80 Pulse Rate [Lying] Pulse Rate [Sitting (for 1 minute prior to obtaining)] Pulse Rate [Standing (for 1 minute prior to obtaining)] Respiratory Rate 16 Respiratory Effort Respiratory Pattern Blood Pressure 111/74 Blood Pressure [Lying] Blood Pressure [Sitting (for 1 minute prior to obtaining)] Blood Pressure [Standing (for 1 minute prior to obtaining)] Blood Pressure Mean 86 Blood Pressure Mean [Lying] Blood Pressure Mean [Sitting (for 1 minute prior to obtaining)] Blood Pressure Mean [Standing (for 1 minute prior to obtaining)] Pulse Ox 98 Oxygen Delivery Method Oxygen Flow Rate (L/min) MDM MDM MDM Narrative Medical decision making narrative: I reviewed the patient's prior records. She had a recent CTA that was negative for pulmonary embolism. [facility] had [facility] of last month, just over a week ago because she was having further testing for her lung carcinoma. Pulse ox is 97% on 2 L nasal cannula. I do feel that she probably has more of a laryngitis and that her reported hypotension could be secondary to intravascular volume depletion versus dehydration. I have low concern for pulmonary embolism. This is because she had a recent CTA that was negative. Chest x-ray will be obtained to rule out pneumonia or pneumothorax. EKG was obtained and interpreted by myself independently as normal sinus rhythm at 97 bpm without ectopy or acute ST changes. No STEMI. I have low concern for ACS currently, she is not having chest pain. I reviewed her laboratory work and she has normal white count of 5.6 with hemoglobin stable at 11.7, hematocrit 37.6, platelet count 335. BUN normal at 10 with creatinine 1.02, glucose appropriately elevated at 99 with calcium 9.2. On my independent interpretation of her chest x-ray, she has whiteout of the left lung, it was not as severe when compared to 10/05/2024. In discussion with her daughter, they are aware of this and states that they found that when she was at [facility] and recently discharged, stating that it was more metastasis and mass than it was fluid as there was not enough fluid to perform thoracentesis. She is satting well on her nasal cannula oxygen which she wears at home. Orthostatics were negative although she had a lower systolic blood pressure in the 90s with no significant drop. After a bolus of 500 mL of IV fluids, she was able to ambulate and felt improved. Her blood pressure did come up to 111/74. At this point in time, I do feel she probably has more of an intravascular volume depletion. I am hesitant to give her a large amount of fluid and I do think that her taking hydrochlorothiazide 25 mg on her home medication list has something to do with her low blood pressure. She was told to hold this and perhaps restart at half dosing should her systolic blood pressure be over 140. At this point in time, I did discuss observation with them versus outpatient treatment and they are comfortable with going home at this time as she feels improved after small aliquot of IV fluids. Return instructions to the emergency department were reviewed. She will follow-up with her oncologist. Disposition is discharged home in stable condition. Patient and daughter are agreeable to the plan. History & Record Review Discussion w/independent historian: Patient and Family Additional record(s) reviewed:: Prior ED visit and Prior labs Lab Data Attestation: I reviewed the patient's lab results. Labs: Laboratory Results - last 24 hr 10/21/24 15:15 WBC 5.6 RBC 4.55 Hgb 11.7 L Hct 37.6 MCV 82.6 MCH 25.7 L MCHC 31.1 L RDW Std Deviation 53.9 H RDW Coeff of Juan David 17.9 H Plt Count 335 MPV 8.6 Immature Gran % (Auto) 0.400 Neut % (Auto) 70.7 H Lymph % (Auto) 16.1 L Dundy % (Auto) 12.4 H Eos % (Auto) 0.2 Baso % (Auto) 0.2 Absolute Neuts (auto) 4.0 Absolute Lymphs (auto) 0.90 Nucleated RBC % 0 Sodium 140 Potassium 3.7 Chloride 102 Carbon Dioxide 24.0 Anion Gap 14 BUN 10 Creatinine 1.02 Estim Creat Clear Calc 48.29 L Est GFR (MDRD) Non-Af 58 L BUN/Creatinine Ratio 9.8 L Glucose 99 Calcium 9.2 Radiography Diagnostic Testing: Clinical Impression(s) from Imaging Studies Chest X-Ray 10/21/24 15:17 IMPRESSION: Complete whiteout of the left hemithorax. Uncertain if this is due to lobectomy, metastasis, pleural effusion, mucous plug or other etiology Reading Location: [facility] Discharge Plan Triage Chief Complaint: Shortness of Breath ED Provider: Tay Dumont Dx/Rx/DC Orders Clinical Impression: Acute hypotension, Lightheaded, Nausea, Small cell carcinoma of left lung Instructions: Hypotension Dc, ED Low Blood Pressure, All Causes Prescriptions: No Action cholecalciferol (vitamin D3) 25 mcg (1,000 unit) capsule 25 mcg PO QDAY multivitamin Tablet 1 tab PO QAM omega-3 fatty acids 1,000 mg capsule 1,000 mg PO QDAY albuterol sulfate 2.5 mg /3 mL (0.083 %) solution for nebulization 2.5 mg inhalation PRN PRN (Reason: shortness of breath or wheezing) Patient Comments: [NO ORIGINAL SIG] buspirone 10 MG tablet 10 mg PO TID albuterol sulfate 1 INHALER inhaler 1 - 2 puff inhalation Q4H PRN PRN (Reason: Sob &/Or Wheezing) loratadine 10 MG tablet 10 mg PO DAILY cetirizine [24Hour Allergy] 10 mg tablet 10 mg PO DAILY melatonin 2.5 mg tablet,chewable 2.5 mg PO QHS valacyclovir 500 mg tablet 500 mg PO BID simvastatin 20 mg tablet 20 mg PO QHS vitamin E 268 mg (400 unit) capsule 268 mg PO DAILY meloxicam 15 mg tablet 15 mg PO DAILY gabapentin 300 mg capsule 300 mg PO TID oxycodone-acetaminophen 5-325 mg tablet 1 tab PO TID PRN PRN (Reason: pain) trazodone 100 mg tablet 100 mg PO QHS hydrochlorothiazide 25 mg tablet 25 mg PO DAILY budesonide-formoterol 80-4.5 mcg/actuation HFA aerosol inhaler 1 inh INHALATION .x4 Patient Comments: [NO ORIGINAL SIG] Rx Instructions: 2 puffs in morning, 2 puffs at night Primary Care Provider: Esperanza Hector Referrals: Esperanza Hector, [Primary Care Provider] - 3-5 Days if not improving Activity Restrictions/Additional Instructions: Avoid taking your hydrochlorothiazide for your high blood pressure over the next few days. You might want to start at taking half the dose of 12.5 mg if your blood pressure starts to elevate above 140 systolic. Drink 20 of oral fluids. Return with sustained low blood pressure, new or worsening symptoms. Wear your oxygen as previously directed. Follow-up with your oncologist. Print Language: [place] Irish Disposition Disposition: Home, Self Care
--- NOTE | 2024-10-21 15:17 | RAD_ITS ---
PROCEDURE: CHEST 1 VIEW (PORTABLE) 10/21/2024 REASON FOR EXAM: SHORTNESS OF BREATH. Small-cell lung cancer TECHNIQUE: Frontal view of the chest. COMPARISON: Chest radiographs 10/05/2024 FINDINGS: Hardware: None Heart: Heart size is mildly enlarged. Lungs: The right lung is clear. There is now complete whiteout of the left hemithorax. There is leftward shift of the mediastinum with the trachea also being deviated toward the left. Bones: Unremarkable Other: Or other etiology RAD/Chest 1 View (Portable) IMPRESSION: Complete whiteout of the left hemithorax. Uncertain if this is due to lobectom y, metastasis, pleural effusion, mucous plug or other etiology Reading Location: [facility]
[2024-10-21 15:23] LABS: Basophil# 0.01 X10^3/uL; Basophil% 0.2 % (0-1); Eosinophil# 0.01 X10^3/uL; Eosinophils% 0.2 % (0-5); Hematocrit 37.6 % (37-47); Hemoglobin 11.7 g/dL (12.0-15.0); Lymphocyte % 16.1 % (19-41); Mean Corp Hgb Conc 31.1 g/dL (32-36); Mean Corpuscular Hgb 25.7 pg (27.0-32.0); Mean Corpuscular Volume 82.6 fL (81-99); Mean Platelet Vol. 8.6 fl (6.2-12.0); Monocyte# 0.69 X10^3/uL; Monocyte% 12.4 % (0-10); NRBC Flagged by Analyzer 0 % (0-5); Neutrophil # 3.95 X10^3/uL (2.7-7.7); Neutrophil % 70.7 % (47-70); Platelet Count 335 K/mm3 (150-450); RBC Distribution Width CV 17.9 % (11.6-14.6); RBC Distribution Width SD 53.9 fl (35.1-43.9); Red Blood Count 4.55 M/mm3 (4.2-5.4); White Blood Count 5.6 K/mm3 (4.4-11.0)
[2024-10-21] MEDS: Ipratropium/Albuterol Sulfate 3 ML AMPUL.NEB INHALATION (15:26)
[2024-10-21] MEDS: 0.9% Normal Saline (500mL Bag) 500 ML 999 ML IV (15:35)
[2024-10-21 15:41] LABS: Anion Gap 14 (5-15); BUN 10 mg/dL (4-19); BUN/Creat Ratio 9.8 RATIO (10-20); Calcium,Total 9.2 mg/dL (7.6-11.0); Chloride 102 mmol/L (98-108); Creatinine, Serum 1.02 mg/dL (0.70-1.20); EST Glomerular Filtration Rate 58 (>60); Estimated Creatinine Clearance 48.29 ml/min (50-250); Glucose 99 mg/dL (70-99); Potassium 3.7 mmol/L (3.3-5.1); Sodium Level 140 mmol/L (133-145)
[2024-10-21] MEDS: Ondansetron 4 MG/2 ML Vial IV (16:43)
== END 2024-10-21 16:51 | disposition home or self-care (01) ==
PROVIDERS: Emergency Provider Emergency Medicine; PCP Family Medicine; Visit Provider Emergency Medicine
DX: I95.9 Hypotension, unspecified (principal); C34.92 Malignant neoplasm of unspecified part of left bronchus or lung; J44.9 Chronic obstructive pulmonary disease, unspecified; Z87.891 Personal history of nicotine dependence
CPT/HCPCS: 71045; 80048; 85025; 93005; 94640; 96361; 96374; 99285; A4216; J2405

== ENCOUNTER 2024-11-16 11:34 | Day surgery (SDC) | payer MEDICARE, SELFPAY ==
--- NOTE | 2024-11-03 15:00 | PAT.ANE_ITS ---
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 When Was Last Pacemaker Check QUESTION #4 FULL TEXT: You/Your Family Experience fever (hyperthermia) with Anesthesia Last Oral Intake Last Oral intake: Last Oral Intake NPO since Meds taken in AM with sips of water? Meds patient instructed to take am of surgery PONV PONV - cash applications specialist: PONV - cash applications specialist Female Yes 11/03/24 14:04 HX of Motion Sickness Yes 11/03/24 14:04 HX of N/V After Surgery No 11/03/24 14:04 Non-Smoker Yes 11/03/24 14:04 Duration of Surgery greater Yes 11/03/24 14:04 than 60 minutes Number of Risk Factors 4 11/03/24 14:04 PONV Score Severe Risk 11/03/24 14:04 Height & Weight Height & Weight: Anesthesia: Height & Weight Height 5 ft 3 in 11/02/24 09:51 Respiratory Assessment Respiratory Assessment - cash applications specialist: Respiratory Tract Infection Hx - cash applications specialist Hx Respiratory Tract Infection No 11/03/24 14:04 STOP Sleep Apnea STOP Sleep Apnea - cash applications specialist: STOP Sleep Apnea - cash applications specialist Hx Hypertension Yes: CONTROLLED ON MED 11/03/24 14:04 Hx Sleep Apnea No 11/03/24 14:04 CPAP BIPAP Do you snore loudly (louder No 11/03/24 14:04 than talking or can be heard Do you often feel tired/ No 11/03/24 14:04 fatigued/ sleepy during daytime? Has anyone observed you stop No 11/03/24 14:04 breathing during sleep? STOP Results Negative 11/03/24 14:04 QUESTION #5 FULL TEXT : Do you snore loudly (louder than talking or can be heard through closed doors)? Tobacco Use History Tobacco Use History - cash applications specialist: Tobacco Use History - cash applications specialist Tobacco Use Smoking Status Former smoker 11/03/24 14:04 Hx Tobacco Use Yes 11/03/24 14:04 Years Smoking Packs Smoked per Day Smoking Cessation Date was Yes - quit smoking within 15 11/03/24 14:04 within the last 15 years years Hx Smoking Cessation Date 06/01/24 11/03/24 14:04 Hx Smoking Cessation Counseling Hematologic Medial History Hematologic Hx - cash applications specialist: Hematologic Medical Hx - steel layer Hx of Blood Transfusion No 11/03/24 14:04 Hx of Transfusion in last 3 No 11/03/24 14:04 Months Date of Last Transfusion (if within last 3 months) Ever experience any problems No 11/03/24 14:04 with transfusion(s)? Specify any problems Hx of Preganancy in last 3 No 11/03/24 14:04 Months Nurse Filling Out Transfusion VCHRISTIN 11/03/24 14:04 & Questions: Date: 11/03/24 11/03/24 14:04 Time: 14:05 11/03/24 14:04 Patient unable to answer at this time (ie. confused, unrespo /Reproduction History /Reproductive History - cash applications specialist: /Reproductive Hx- cash applications specialist Hx Now Gestational Age (in weeks): EDC: Hx Hx Para Hx Section SAB PFSH Medical History (Updated 11/03/24 @ 14:03 by Betty Cotton) Wears dentures Wears glasses Post-menopausal Cancer History of steroid therapy Arthritis Back pain History of hiatal hernia Gastric reflux Former smoker On home oxygen therapy Asthma Shortness of breath on exertion Hoarseness Chronic cough History of edema Cardiology follow-up encounter History of echocardiogram Hypertension Coughing up blood Chest pain Anemia Encounter for antineoplastic immunotherapy Encounter for chemotherapy management Small cell lung cancer Encounter for education 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 COPD (chronic obstructive pulmonary disease) Home Medications ?Medication ?Instructions ?Recorded ?Last Taken ?Type albuterol sulfate 90 mcg/actuation 1 - 2 puff inhalati on Q4H PRN PRN 08/24/19 Unknown History aerosol inhaler Sob &/Or Wheezing buspirone 10 mg tablet 10 mg PO TID 08/24/19 Unknow n History loratadine 10 mg tablet 10 mg PO DAILY 02/06/20 Unkn own History budesonide-formoterol HFA 80 1 inh inhalation .x4 08/20 01/10 Unknown History mcg-4.5 mcg/actuation aerosol inhaler oxycodone-acetaminophen 5 mg-325 1 tab PO TID PRN PRN pain 09/13/24 Unknown History mg tablet trazodone 100 mg tablet 100 mg PO QHS 09/13/24 Unkno wn History cholecalciferol (vitamin D3) 25 25 mcg PO QDAY 5 Unknown History mcg (1,000 unit) capsule multivitamin 1 tab PO QAM 09/18/24 Unknow n History albuterol sulfate 2.5 mg/3 mL 2.5 mg inhalation PRN TX N 09/22/24 Unknown History (0.083 %) solution for nebulization shortness of breat h or wheezing melatonin 2.5 mg chewable tablet 2.5 mg PO QHS 5 Unknown History lidocaine-prilocaine 2.5 %-2.5 % 1 applic topical ONCE PRN port 10/26/24 Unknown Rx topical cream access 30 days #30 grams ondansetron 8 mg disintegrating 8 mg PO Q8H PRN nausea and 10/26/24 Unknown Rx tablet vomiting #30 tabs prochlorperazine maleate 10 mg 10 mg PO Q6H PRN nausea and 10/26/24 Unknown Rx tablet vomiting #30 tabs hydrochlorothiazide 25 mg tablet 12.5 mg PO MOTUWETHFR SA 11/03/24 Unknown History Allergy/AdvReac Type Severity Reaction Status Date / Time Opioids - Morphine Analogues Allergy Severe Hives Verified 11/03/24 13:47 alendronate sodium (From Allergy Pain in Verified 11/03/24 13:47 Fosamax) joints cefaclor (From Ceclor) Allergy Hives Verified 11/03/24 13:47 Penicillins Allergy Hives Verified 11/03/24 13:47 tramadol HCl (From Ultram) Allergy Hives Verified 11/03/24 13:47 erythromycin base AdvReac Nausea Verified 11/03/24 13:47 Family History Mother Leukemia Grandfather Brain cancer Father Respiratory disease Surgical History (Updated 11/03/24 @ 14:03 by Betty Cotton) History of bunionectomy History of carpal tunnel surgery of right wrist History of eyelid surgery History of shoulder surgery History of carpal tunnel release History of bilateral knee replacement H/O breast biopsy History of appendectomy Previous back surgery Social History Smoking Status: Former smoker Tobacco: How many years used: 30 alcohol intake: never Audit: Pertinent Findings Pertinent Findings EKG Perinent findings: 10/21/2024. Sinus rhythm 97 bpm. Pulmonary function results/spirometer pertinent findings: Chest x-ray 10/21/2024. Complete whiteout of left hemithorax. Uncertain etiology lobectomy versus metastasis versus pleural effusion versus mucous plug. Recommendation Anesthesia Recommendation Anesthesia recommendation: OPTIMIZED for anesthesia
[2024-11-16] VITALS (7 sets, daily range): BP systolic 100–117; BP diastolic 57–79; PULSE 84–93; RESP 16–18; TEMP 36.2–36.6; O2SAT 96–97; BMI 27.7
[2024-11-16] MEDS: Lactated Ringers 1,000 ML 15 ML IV (12:09)
--- NOTE | 2024-11-16 12:37 | PRE.ANES_ITS ---
ASA Classification* ASA Classification ASA Classification: 3 Assessment & Plan Anesthesia* Anesthesia Assessment Anesthesia Assessment: Discussed sedation and/or anesthesia options, risks, benefits, and alternatives with patient/parents/legal guardian/POA. Questions invited. The patient/parents/legal guardian/POA seems to understand and agrees to proceed with anesthesia plan. Reviewed the physical assessment, medical history, allergy history and patient home medications list prior to surgery/procedure/anesthetic and documented any changes. Performed airway and anesthesia risk assessments. Anesthesia Type Anesthesia Type: MAC History Source History Obtained from:: Patient and Chart Anesthesia Focused Assessment* Temperature: 97.6 F Pulse Rate: 92 Blood Pressure: 117/72 Respiratory Rate: 18 Pulse Ox: 96 Oxygen Delivery Method: Nasal Cannula Oxygen Flow Rate (L/min): 3 Airway Assessment Mouth opens: >3 cm Mallampati Score: II Teeth Condition: Dentures (Upper dentures are out.) and Missing (Missing several teeth on the bottom. Rest are tight.) Neck Range of motion (ROM): Full ROM Focused Labs Anesthesia Preop lab: CBC WBC 1.9 K/mm3 (4.4-11.0) L 11/09/24 08:47 11/09/24 RBC 3.52 M/mm3 (4.2-5.4) L 11/09/24 08:47 11/09/24 Hgb 9.2 g/dL (12.0-15.0) L 11/09/24 08:47 11/09/24 Hct 29.5 % (37-47) L 11/09/24 08:47 11/09/24 Plt Count 144 K/mm3 (150-450) L 11/09/24 08:47 11/09/24 CHEMISTRY Potassium 3.1 mmol/L (3.3-5.1) L 11/09/24 08:47 11/09/24 Sodium 141 mmol/L (133-145) 11/09/24 08:47 11/09/24 BUN 8 mg/dL (4-19) 11/09/24 08:47 11/09/24 Creatinine 0.75 mg/dL (0.70-1.20) 11/09/24 08:47 11/09/24 Glucose 110 mg/dL (70-99) H 11/09/24 08:47 11/09/24 TSH 0.644 uIU/mL (0.300-4.200) 09/13/24 17:04 02/01/10 COAG PT 12.9 SECONDS (11.7-14.9) 10/05/24 14:40 Pre-Assessment Diagnosis/Proposed Procedure Planned Operative Procedure(s): (R) Insertion, Vascular Port Anesthesia History 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 When Was Last Pacemaker Check QUESTION #4 FULL TEXT: You/Your Family Experience fever (hyperthermia) with Anesthesia Last Oral Intake Last Oral intake: Last Oral Intake NPO since 07:00 11/16/24 12:05 Meds taken in AM with sips of Yes 11/16/24 12:05 water? 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 Female Yes 11/03/24 14:04 HX of Motion Sickness Yes 11/03/24 14:04 HX of N/V After Surgery No 11/03/24 14:04 Non-Smoker Yes 11/03/24 14:04 Duration of Surgery greater Yes 11/03/24 14:04 than 60 minutes Number of Risk Factors 4 11/03/24 14:04 PONV Score Severe Risk 11/03/24 14:04 Height & Weight Height & Weight: Anesthesia: Height & Weight Height 5 ft 3 in 11/16/24 12:05 Weight: 71 kg 11/16/24 12:05 Body Mass Index (BMI) 27.7 11/16/24 12:05 Respiratory Assessment Respiratory Assessment - double cut off saw operator: Respiratory Tract Infection Hx - 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 Has anyone observed you stop No 11/03/24 14:04 breathing during sleep? STOP Results Negative 11/03/24 14:04 QUESTION #5 FULL TEXT : Do you snore loudly (louder than talking or can be heard through closed doors)? 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 Specify any problems Hx of Preganancy in last 3 No 11/03/24 14:04 Months Nurse Filling Out Transfusion VCHRISTIN 11/03/24 14:04 & Questions: Date: 11/03/24 11/03/24 14:04 Time: 14:05 11/03/24 14:04 Patient unable to answer at this time (ie. 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 Jhon East MD) Pericardial effusion Hilar mass Right atrial mass Genital herpes Osteoporosis Migraine Hyperlipidemia Hiatal hernia GERD (gastroesophageal reflux disease) Depression Chronic kidney disease (CKD) Bilateral leg edema Thyroid enlargement Hypokalemia Wears dentures Wears glasses Post-menopausal Cancer History of steroid therapy Arthritis Back pain History of hiatal hernia Gastric reflux Former smoker On home oxygen therapy Asthma Shortness of breath on exertion Hoarseness Chronic cough History of edema Cardiology follow-up encounter History of echocardiogram Hypertension Coughing up blood Chest pain Anemia Encounter for antineoplastic immunotherapy Encounter for chemotherapy management Small cell lung cancer Encounter for education 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 COPD (chronic obstructive pulmonary disease) Home Medications ?Medication ?Instructions ?Recorded ?Last Taken ?Type albuterol sulfate 90 mcg/actuation 1 - 2 puff inhalati on Q4H PRN PRN 08/24/19 Unknown History aerosol inhaler Sob &/Or Wheezing loratadine 10 mg tablet 10 mg PO DAILY 08/24/1910/19 History oxycodone-acetaminophen 5 mg-325 1 tab PO Q6H pain 11/16/24 History mg tablet cholecalciferol (vitamin D3) 25 25 mcg PO QDAY 5 11/15/24 History mcg (1,000 unit) capsule multivitamin 1 tab PO QAM 09/18/24 History albuterol sulfate 2.5 mg/3 mL 2.5 mg inhalation PRN NJ N 09/22/24 11/16/24 History (0.083 %) solution for nebulization shortness of breat h or wheezing lidocaine-prilocaine 2.5 %-2.5 % 1 applic topical ONCE PRN port 10/26/24 Unknown Rx topical cream access 30 days #30 grams ondansetron 8 mg disintegrating 8 mg PO Q8H PRN nausea and 10/26/24 Unknown Rx tablet vomiting #30 tabs prochlorperazine maleate 10 mg 10 mg PO Q6H PRN nausea and 10/26/24 Unknown Rx tablet vomiting #30 tabs budesonide-formoterol HFA 80 2 inh inhalation .x4 10/1811/16/24 History mcg-4.5 mcg/actuation aerosol inhaler melatonin 2.5 mg chewable tablet 2.5 mg PO QHS PRN sle ep 11/09/24 11/15/24 History buspirone 10 mg tablet 10 mg PO TID PRN anxiety 11/16/24 History ferrous sulfate 325 mg (65 mg 325 mg PO BID 11/13/24 0 11/15/24 History iron) tablet,delayed release hydrochlorothiazide 25 mg tablet 12.5 mg PO MOTUWETHFR SA 11/13/24 11/15/24 History mecobalamin (vitamin B12) 1,000 1,000 mcg PO QDAY 10/1811/15/24 History mcg chewable tablet pantoprazole 40 mg tablet,delayed 40 mg PO QDAY 11/16/24 History release trazodone 100 mg tablet 150 mg PO QHS 11/13/2411/15 History Allergy/AdvReac Type Severity Reaction Status Date / Time Opioids - Morphine Analogues Allergy Severe Hives Verified 11/16/24 12:04 alendronate sodium (From Allergy Pain in Verified 11/16/24 12:04 Fosamax) joints cefaclor (From Ceclor) Allergy Hives Verified 11/16/24 12:04 ezetimibe Allergy Other Verified 11/16/24 12:04 Penicillins Allergy Hives Verified 11/16/24 12:04 tramadol HCl (From Ultram) Allergy Hives Verified 11/16/24 12:04 erythromycin base AdvReac Nausea Verified 11/16/24 12:04 Family History Mother Leukemia Osteoporosis Thyroid disorder Grandfather Brain cancer Father Respiratory disease Brother Heart disease Surgical History History of tubal ligation History of bunionectomy History of carpal tunnel surgery of right wrist History of eyelid surgery History of shoulder surgery History of carpal tunnel release History of bilateral knee replacement H/O breast biopsy History of appendectomy Previous back surgery Social History Smoking Status: Former smoker Tobacco: How many years used: 30 alcohol intake: never Review of Systems (Anesthesia) ROS Narrative System reviewed and no additional complaints, except as documented. Physical Exam Resp clear to auscultation bilaterally
--- NOTE | 2024-11-16 13:16 | PCM.HP.BLA ---
History and Physical Date of Admission: 11/16/24 Intake Vital Signs 10/25/2514:11 10/27/2515:17 10/28/2511:45 Height 5 ft 3 in 5 ft 3 in 5 ft 3 in Weight: 168 lb 6 oz 107 lb BMI 29.8 18.9 BP 116/76 107/70 Blood Pressure Location Lt brachial Rt brachial Position Sitting Sitting Respiration 18 18 Pulse 115 H 100 Pulse Source Monitor Monitor Temp 98.5 F 97.6 F L Temp Source Temporal Pulse Oximetry (%) 98 96 Oxygen Delivery Method nasal canula room air Oxygen Flow Rate (L/min) 2.5 Intake Visit Reasons: PORT PLACEMENT Chief Complaint: port placement Is patient in pain?: No Allergies Opioids - Morphine Analogues Allergy (Severe, Verified 10/27/24 12:46) Hivesalendronate sodium (From Fosamax) Allergy (Verified 10/27/24 12:46) Pain in jointscefaclor (From Ceclor) Allergy (Verified 10/27/24 12:46) HivesPenicillins Allergy (Verified 10/27/24 12:46) Hivestramadol HCl (From Ultram) Allergy (Verified 10/27/24 12:46) Hiveserythromycin base Adverse Reaction (Verified 10/27/24 12:46) Nausea Medications ?Medication ?Instructions ?Recorded ?Confirmed ?Type albuterol sulfate 90 mcg/actuation 1 - 2 puff inhalation Q4H PRN PRN 08/24/19 10/27/24 History aerosol inhaler Sob &/Or Wheezing buspirone 10 mg tablet 10 mg PO TID 08/24/19 10/27/24 History loratadine 10 mg tablet 10 mg PO DAILY 08/24/19 10/27/24 History budesonide-formoterol HFA 80 1 inh inhalation .x4 09/13/24 10/27/24 History mcg-4.5 mcg/actuation aerosol inhaler hydrochlorothiazide 25 mg tablet 25 mg PO DAILY 09/13/24 10/27/24 History oxycodone-acetaminophen 5 mg-325 1 tab PO TID PRN PRN pain 09/13/24 10/27/24 History mg tablet trazodone 100 mg tablet 100 mg PO QHS 09/13/24 10/27/24 History cholecalciferol (vitamin D3) 25 25 mcg PO QDAY 09/18/24 10/27/24 History mcg (1,000 unit) capsule multivitamin 1 tab PO QAM 09/18/24 10/27/24 History albuterol sulfate 2.5 mg/3 mL 2.5 mg inhalation PRN PRN 09/22/24 10/27/24 History (0.083 %) solution for nebulization shortness of breath or wheezing gabapentin 300 mg capsule 300 mg PO TID 10/05/24 10/27/24 History melatonin 2.5 mg chewable tablet 2.5 mg PO QHS 10/05/24 10/27/24 History meloxicam 15 mg tablet 15 mg PO DAILY 10/05/24 10/27/24 History simvastatin 20 mg tablet 20 mg PO QHS 10/05/24 10/27/24 History valacyclovir 500 mg tablet 500 mg PO BID 10/05/24 10/27/24 History vitamin E 268 mg (400 unit) capsule 268 mg PO DAILY 10/05/24 10/27/24 History lidocaine-prilocaine 2.5 %-2.5 % 1 applic topical ONCE PRN port 10/26/24 10/27/24 Rx topical cream access 30 days #30 grams ondansetron 8 mg disintegrating 8 mg PO Q8H PRN nausea and 10/26/24 10/27/24 Rx tablet vomiting #30 tabs prochlorperazine maleate 10 mg 10 mg PO Q6H PRN nausea and 10/26/24 10/27/24 Rx tablet vomiting #30 tabs Have you fallen in the past year?: No PFSH Medical History Encounter for education 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 Exam Const General: cooperative Orientation: alert and oriented x3 HENMT Head: normal to inspection Neck Neck: normal visual inspection and full ROM Chest Chest palpation & inspection: normal inspection of the chest Resp Effort & Inspection: normal respiratory effort Auscultation: clear to auscultation bilaterally Cardio Rate: regular rate Rhythm: regular rhythm GI Inspection: non-distended Palpation: soft and nontender Skin General: no rashes or lesions noted Neuro General: patient alert and patient oriented x3 Extrem General: full ROM Psych Appearance: grossly normal Mental Status: mental status grossly normal Assessment and Plan Assessment and Plan (1) Encounter for insertion of venous access port: Status: Acute Plan: I discussed chest port placement with the patient in detail. I discussed placement on the right. I discussed the procedure in detail as well as the risks including but not limited to bleeding, infection, injury to other structures, pneumothorax, line infection or DVT. Patient understands all the risks and is willing to proceed. Omar Hicks MD Pager: [facility] [address] [place] [address], [address] [place] [address] Office: I have examined the patient and the H&P has been reviewed. There are no clinical changes since date of exam.
[2024-11-16] MEDS: Clindamycin 900 MG/50 ML BAG 75 MG IV (13:45)
[2024-11-16] MEDS: Lidocaine 1% /Epi 1:100 (20ml) 20 ML Vial (14:16)
[2024-11-16] MEDS: Bupivacaine Mpf 0.5% 30 ML VIAL (14:16)
--- NOTE | 2024-11-16 14:21 | OP.PCM_ITS ---
Operative Report (Standard) Operative Information Date of Procedure: 11/16/24 Pre-Operative Diagnosis: Need for vascular access for chemotherapy Post-Operative Diagnosis: Same Surgery/Procedure Performed: Ultrasound and fluoroscopy guided right chest port placement utilizing right IJ digital print operator: No Type of Anesthesia: Local MAC RN Documented Start/Stop Times: Operation Date: 11/16/24 13:10 Case Time Into Pre-Op 11/16/24 11:41 Out of Pre-Op 11/16/24 13:40 Anesthesia Start 11/16/24 13:45 Into Room 11/16/24 13:45 Procedure Start 11/16/24 14:05 Procedure End 11/16/24 14:10 Procedure Start Time: 14:05 Procedure Stop Time: 14:20 Select all DRAINS/GRAFTS/IMPLANTS that apply: Implanted device Implanted device details: 8 [place] PowerPort Estimated Blood Loss: 5 Specimen collected: No Description of surgery: After obtaining informed consent patient was brought back to the operating room MAC anesthesia was induced and the right chest and neck were prepped in normal sterile fashion. Ultrasound was used to evaluate both IJs and the right IJ was selected. Next, using a needle, the right IJ was accessed and a guidewire was passed on into the superior vena cava under fluoroscopy guidance. A small incision was made over the puncture site and the dilator introducer was placed over the guidewire. Next this was capped and the pocket was made for the port. 1% lidocaine with epinephrine was injected in the proposed port site. An incision was made with scalpel. Electrocautery was used to make a pocket under the skin and subcutaneous tissue. Hemostasis was obtained. Next, the catheter was tunneled up to the neck incision site and placed through the introducer. The peel-away introducer was removed and the position of the catheter was confirmed on fluoroscopy. Next, the catheter was trimmed and attached to the port with the locking device. Interrupted 2-0 Vicryl sutures were used to anchor the port to the chest wall and then the port was placed inside the pocket. The pocket was then flushed with saline and the port irrigated with saline. There was good blood return and the port flushed easily. Next, heparin was injected into the port. The skin was closed with subcutaneous interrupted 3-0 Vicryl sutures. A single 3-0 Vicryl sutures placed under the skin at the neck incision site. Steri-Strips were placed as well as op sites. Patient tolerated procedure well, was taken to PACU in stable condition. Chest x-ray will be obtained. Surgical Findings: None Complications Complications: No Admit VTE Documentation VTE Mechan Device Prophylaxis: SCD's
--- NOTE | 2024-11-16 14:22 | RAD_ITS ---
PROCEDURE: CXR FOR LINE PLACEMENT (RADCXRLP), 11/16/2024 REASON FOR EXAM: LINE PLACEMENT TECHNIQUE: A single portable AP view of the chest was obtained. COMPARISON: 10/06/2024 FINDINGS: Heart: Partially obscured, grossly similar. Mediastinum: Mild atherosclerosis in the arch. Grossly similar contours. Lungs/pleura: Improving aeration on the LEFT with persistent LEFT mid and lower lung opacities which may reflect a combination of effusion and/or adjacent airspace disease. No visible pneumothorax. Bones: Demineralization. Degenerative changes of the LEFT shoulder including evidence of rotator cuff pathology.. Lines and support devices: Interval placement of RIGHT chest wall port/catheter with tip probably near the superior cavoatrial junction.. Other: None. RAD/CXR for Line Placement IMPRESSION: 1. Placement of RIGHT chest wall port/catheter with tip probably near the super ior cavoatrial junction. No visible pneumothorax. 2. Additional description as above. Reading Location: [id number]
--- NOTE | 2024-11-16 14:22 | DCINST_ITS ---
Discharge Instructions Procedure Port-A-Cath Diet Discharge Diet: Light diet - advance as tolerated (Pain medication may cause nausea. You should typically eat light foods as you take your pain medication.) Activity Discharge Activity: Return to Normal Activity and May Shower (with your bandage in place in 1-2 days after surgery. DO NOT SHOWER WHEN YOUR PORT IS ACCESSED.) Dressing / Incision Call your doctor if your incision/area has: Continuous Slow Oozing, Sudden Increased Bleeding, Increased Pain/ Swelling, Increased Redness and Foul Smelling Discharge Call your doctor if you observe: Fever of 101 or Higher Remove Dressing in: 2 days Cleanse incision/area with: Soap & Water Follow Up Care Please Follow Up With: Omar Hicks MD When: as needed [phone] Test Results: Test results from this visit will be discussed in further detail at your follow- up appointment, if applicable. Discharge Plan Admission Attending Provider: Omar Hicks Primary Care Provider: Esperanza Hector Instructions Print Language: Singaporean Discharge Orders/Prescriptions Prescriptions: No Action cholecalciferol (vitamin D3) 25 mcg (1,000 unit) capsule 25 mcg PO QDAY multivitamin Tablet 1 tab PO QAM albuterol sulfate 2.5 mg /3 mL (0.083 %) solution for nebulization 2.5 mg inhalation PRN PRN (Reason: shortness of breath or wheezing) Patient Comments: [NO ORIGINAL SIG] prochlorperazine maleate 10 mg tablet 10 mg PO Q6H PRN (Reason: nausea and vomiting) Qty: 30 2RF ondansetron 8 mg tablet,disintegrating 8 mg PO Q8H PRN (Reason: nausea and vomiting) Qty: 30 2RF lidocaine-prilocaine 2.5-2.5 % cream 1 applic topical ONCE PRN (Reason: port access) 30 Days Qty: 30 2RF ferrous sulfate 325 mg (65 mg iron) tablet,delayed release (DR/EC) 325 mg PO BID mecobalamin (vitamin B12) 1,000 mcg tablet,chewable 1,000 mcg PO QDAY pantoprazole 40 mg tablet,delayed release (DR/EC) 40 mg PO QDAY albuterol sulfate 1 INHALER inhaler 1 - 2 puff inhalation Q4H PRN PRN (Reason: Sob &/Or Wheezing) loratadine 10 MG tablet 10 mg PO DAILY buspirone 10 mg tablet 10 mg PO TID PRN (Reason: anxiety) melatonin 2.5 mg tablet,chewable 2.5 mg PO QHS PRN (Reason: sleep) oxycodone-acetaminophen 5-325 mg tablet 1 tab PO Q6H budesonide-formoterol 80-4.5 mcg/actuation HFA aerosol inhaler 2 inh INHALATION .x4 Patient Comments: [NO ORIGINAL SIG] Rx Instructions: 2 puffs in morning, 2 puffs at night trazodone 100 mg tablet 150 mg PO QHS hydrochlorothiazide 25 mg tablet 12.5 mg PO MOTUWETHFRSA Referrals / Follow Up: Esperanza Hector DO [Primary Care Provider] - Disposition Disposition (needs filled in before D/C Order can be placed): Home, Self Care
--- NOTE | 2024-11-16 14:24 | PCM.POST.ANE ---
Anesthesia: Postop Eval I Current Vital Signs Temperature: 97.9 F Pulse Rate: 93 Blood Pressure: 115/57 Respiratory Rate: 16 Pulse Ox: 97 Oxygen Delivery Method: Nasal Cannula Oxygen Flow Rate (L/min): 3 Assessment Airway patent: Yes Spontaneous unlabored respirations: Yes Mental status: Awake and Calm nausea: No Vomiting: No Anesthesia Complication: No Fluid Hydration Crystalloid volume administer (ml): 200 Total IV fluid infused: 200 Progress Note Anesthesia document: Postop Eval 1 completed: Yes
--- NOTE | 2024-11-16 15:30 | POSTOPAN2_ITS ---
Anesthesia Postop Eval I Sum Postop Eval Completion status Anesthesia document: Postop Eval 1 completed: Yes Anesthesia Postop Eval I Summary Anesthesia Postop Eval I Summary: Anesthesia Postop Eval I: Assessment Summary Airway patent Yes 11/16/24 14:25 [email or web address] Spontaneous unlabored Yes 11/16/24 14:25 [email or web address] respirations Mental status Awake,Calm 11/16/24 14:25 [email or web address] nausea No 11/16/24 14:25 [email or web address] Vomiting No 11/16/24 14:25 [email or web address] Anesthesia Postop Eval I: Fluid Summary Crystalloid volume administer 200 11/16/24 14:25 [email or web address] (ml) Colloids volume administered ( ml) Blood Product volume administered (ml) Total IV fluid infused 200 11/16/24 14:25 [email or web address] Anesthesia Postop Eval I: Summary Notes Anesthesia Complication No 11/16/24 14:25 [email or web address] Anesthesia Complication Comment: Post-operative progress note Anesthesia: Postop Eval II Evaluation Mental status: Awake and Calm Pain Level: 1 nausea: No Vomiting: No Complications Anesthesia Complication: No
--- NOTE | 2024-11-16 15:30 | PCM.POSTANE2 ---
Anesthesia Postop Eval I Sum Postop Eval Completion status Anesthesia document: Postop Eval 1 completed: Yes Anesthesia Postop Eval I Summary Anesthesia Postop Eval I Summary: Anesthesia Postop Eval I: Assessment Summary Airway patent Yes 11/16/24 14:25 [email or web address] [email or web address] Spontaneous unlabored Yes 11/16/24 14:25 [email or web address] [email or web address] respirations Mental status Awake,Calm 11/16/24 14:25 [email or web address] [email or web address] nausea No 11/16/24 14:25 [email or web address] [email or web address] Vomiting No 11/16/24 14:25 [email or web address] Anesthesia Postop Eval I: Fluid Summary Crystalloid volume administer 200 11/16/24 14:25 [email or web address] (ml) Colloids volume administered ( ml) Blood Product volume administered (ml) Total IV fluid infused 200 11/16/24 14:25 [email or web address] Anesthesia Postop Eval I: Summary Notes Anesthesia Complication No 11/16/24 14:25 [email or web address] Anesthesia Complication Comment: Post-operative progress note Anesthesia: Postop Eval II Evaluation Mental status: Awake and Calm Pain Level: 1 nausea: No Vomiting: No Complications Anesthesia Complication: No
== END 2024-11-16 15:17 | disposition home or self-care (01) ==
LOC: SDC 11:36 → AC 11:38
PROVIDERS: PCP Family Medicine; Referring Provider Surgery; Visit Provider Surgery
PROC: (CPT 36561; principal; 2024-11-16 12:55)
DX: Z45.2 Encounter for adjustment and management of vascular access device (principal); C34.92 Malignant neoplasm of unspecified part of left bronchus or lung; J44.9 Chronic obstructive pulmonary disease, unspecified; I10 Essential (primary) hypertension; Z87.891 Personal history of nicotine dependence; Z79.51 Long term (current) use of inhaled steroids; Z79.899 Other long term (current) drug therapy
CPT/HCPCS: 36561; 00532; 71045; 77001; C1788

== ENCOUNTER → 2025-01-16 | Outpatient (CLI) | payer MEDICARE, SELFPAY ==
--- NOTE | 2025-01-16 07:51 | CT_ITS ---
PROCEDURE: CT CHEST, ABD, PEL W/CONTRAST 01/16/2025 REASON FOR EXAM: ASSESS RESPONSE TO TREATMENT, EXTENSIVE SMALL CELL TECHNIQUE: Chest, abdomen and pelvis CT with intravenous contrast. Coronal and Sagittal reconstruction series were provided. One or more dose reduction techniques were used (e.g., Automated exposure control, adjustment of the mA and/or kV according to patient size, use of iterative reconstruction technique. PATIENT PREPARATION: Per protocol ORAL CONTRAST TYPE: None. CONTRAST: Isovue 300 VOLUME: 95mL RADIATION DOSE SUMMARY: CTDlvol: 31.5 mGy DLP: 980.52 mGycm COMPARISON: CTA chest, 10/05/2024. FINDINGS: CT CHEST: Lower neck: There is enlargement of the right thyroid lobe and there are multiple hypodense nodules in both thyroid lobes. There are also coarse calcifications throughout the right and left thyroid lobes. There is no supraclavicular lymphadenopathy. Mediastinum: There is no mediastinal lymphadenopathy. There is a large hiatal hernia. Heart and Vasculature: The heart size is normal. There is a small pericardial effusion. There is calcific vascular disease of the thoracic aorta and coronary arteries. Lungs and Airways: Emphysema. There is no left perihilar mass identified. There is a pleural-based nodule in the upper lobe of the left lung, posterolaterally, measuring 2.1 x 1.0 cm (was 2.5 cm in axial dimension). Pleura: There is a small left pleural effusion. Chest wall: There is mild multilevel degenerative disc disease of the thoracic spine. There are coarse calcifications noted in both breasts. There is a chemotherapy port in the right upper chest wall with the tip in the superior vena cava via the right internal jugular vein. CT ABDOMEN/PELVIS: Liver: There is a 10 mm in diameter subcapsular low-density nodule in the posterior segment of the right hepatic lobe. Gallbladder: Normal. Spleen: Normal. Pancreas: Normal. Adrenals: There is a 12 x 9 mm nodule in the right adrenal gland and a 13 x 10 mm nodule in the left adrenal gland, not definitely adenomas. Kidneys: Normal. Bladder: Normal unenhanced appearance. Reproductive Organs: The uterus is unremarkable. The ovaries are not identified. There is no free fluid in the pelvis. There is no inguinal lymphadenopathy. Bowel: There are multiple mildly distended but not abnormally dilated and fluid- filled small bowel loops, may indicate a mild ileus/enteritis. The colonic gas pattern is unremarkable. Appendix: The appendix is not identified. Lymph nodes: There is no significant intra or retroperitoneal lymphadenopathy. Vasculature: There is calcific vascular disease of the abdominal aorta. The inferior vena cava and portal venous system are normal. Peritoneum / Retroperitoneum: There are no abnormal intra or retroperitoneal masses or fluid collections. There are no abdominal wall defects. Bones: Status post PLIF, L4-5. CT/CT Chest, Abd, Pel w/Contrast IMPRESSION: 1. There is no large left perihilar mass identified. 2. There is a large hiatal hernia. 3. There is a stable pleural-based nodule in the upper lobe of the left lung. 4. Low-density nodule in the right hepatic lobe of indeterminate etiology. 5. Bilateral adrenal nodules not clearly adenomas. 6. Other findings as noted. Reading Location: [id number]
[2025-01-16] MEDS: 0.9 % NaCl (Sterile) Posiflush 10 mL IV (08:05)
[2025-01-16] MEDS: 0.9% Saline Lock 10 ML Syringe IV ×2 (08:05→08:15)
== END | disposition home or self-care (01) ==
LOC: CT 07:50
PROVIDERS: PCP Family Medicine; Referring Provider Nurse Practitioner Family; Visit Provider Nurse Practitioner Family
DX: C34.02 Malignant neoplasm of left main bronchus (principal); C79.72 Secondary malignant neoplasm of left adrenal gland; C78.7 Secondary malignant neoplasm of liver and intrahepatic bile duct
CPT/HCPCS: 71260; 74177; Q9967; A4216

== ENCOUNTER 2025-01-28 17:44 | Emergency (ER) | payer MEDICARE, SELFPAY ==
[2025-01-28 17:44] VITALS: BP 116/91; PULSE 103; RESP 16; TEMP 36.9; O2SAT 97
[2025-01-28 17:49] VITALS: BMI 27.6
[2025-01-28 18:44] VITALS: BP 131/83; PULSE 95; RESP 10; TEMP 36.9; O2SAT 100
--- NOTE | 2025-01-28 18:51 | EKG12_ITS ---
Test Reason : CP Blood Pressure : */* mmHG Vent. Rate : 90 BPM Atrial Rate : 90 BPM P-R Int : 152 ms QRS Dur : 86 ms QT Int : 354 ms P-R-T Axes : 56 15 31 degrees QTcB Int : 433 ms Normal sinus rhythm with sinus arrhythmia Normal ECG Confirmed by Kilo Morse ([id number]), editor newspaper KELLY HILL ([id number]) on 01/29/2025 1:08:04 PM Referred By: Confirmed By: Kilo Morse
--- NOTE | 2025-01-28 18:52 | CT_ITS ---
PROCEDURE: ABDOMEN/PELVIS W IV CONT ONLY 01/28/2025 REASON FOR EXAM: ABDOMINAL PAIN TECHNIQUE: ABDOMEN/PELVIS W IV CONT ONLY Coronal and Sagittal reconstruction series were provided. CONTRAST: Isovue 370 VOLUME: 100 mL One or more dose reduction techniques were used (e.g., Automated exposure control, adjustment of the mA and/or kV according to patient size, use of iterative reconstruction technique. RADIATION DOSE SUMMARY: CTDlvol: 14.7 mGy DLP: 1059 mGycm COMPARISON: CT abdomen and pelvis on 01/16/2025 FINDINGS: Lung bases: See same date CT chest Liver: Subcentimeter hypodensity in the right hepatic lobe is too small to characterize. Gallbladder: Unremarkable without radiodense stones Spleen: Unremarkable Pancreas: Mildly atrophic Adrenals: Thickening of the adrenal glands with questionable nodularity, unchanged Kidneys: No radiodense stones or hydronephrosis. Subcentimeter hypodense lesion in the right kidney. Bladder: Unremarkable Reproductive Organs: Unremarkable Bowel: Hiatal hernia. There are prominent loops of fluid-filled small bowel, which are not significantly dilated and without focal transition point. No inflammatory changes. Fecalization is present within several loops of small bowel. Appendix: Surgically absent Lymph nodes: No suspicious lymph node enlargement. Vasculature: Mild diffuse atherosclerotic calcifications are noted. Bones: Postoperative changes of the lumbar spine. Anterolisthesis of L3 on L4 is unchanged. CT/Abdomen/Pelvis W IV Cont ONLY IMPRESSION: 1. Prominent fluid-filled loops of small bowel, without additional findings to suggest obstruction. There is scattered fecalization within the small bowel, suggestive of the clinical diagnosis of co nstipation. 2. Additional findings as detailed above, unchanged from CT performed 01/17/20 25. Reading Location: [id number]
--- NOTE | 2025-01-28 18:52 | CT_ITS ---
PROCEDURE: CTA CHEST W/WO CONTRAST 01/28/2025 REASON FOR EXAM: HX LUNG CANCER, CHEST PAIN, TACHYCARDIA, SOB TECHNIQUE: CTA CHEST W/WO CONTRAST Multiplanar Sagittal and Coronal images were obtained. 3D post processing was performed CONTRAST: Isovue 370 VOLUME: 100 mL One or more dose reduction techniques were used (e.g., Automated exposure control, adjustment of the mA and/or kV according to patient size, use of iterative reconstruction technique). RADIATION DOSE SUMMARY: CTDlvol: 6.3 mGy DLP: 1059 mGycm COMPARISON: CT chest on 01/16/2025 FINDINGS: Lines: Right chest port with tip at the superior cavoatrial junction, unchanged. Thyroid: Multinodular. Lymph nodes: No significant thoracic lymphadenopathy. Heart: Not significantly enlarged. Small pericardial effusion. Mild multivessel coronary calcifications. Thoracic Aorta: No thoracic aortic aneurysm or dissection. Mild calcified atherosclerosis. Pulmonary Vessels: No evidence of acute pulmonary emboli through the major subsegmental branches. Main pulmonary artery measures 2.8 cm in diameter. Lungs and Airways: Central airways are predominantly clear. Apical predominant centrilobular emphysema. Atelectasis and mucous plugging in the central left lower lobe, unchanged. Pleura: No effusion. There is a hypodense lesion along the left posterior pleura measuring up to 2.1 cm, unchanged. Upper Abdomen: See same date CT abdomen and pelvis Bones: Degenerative changes of the thoracic spine. Soft tissues: Bilateral breast calcifications. CT/CTA Chest W/WO Contrast IMPRESSION: 1. No pulmonary embolism or acute cardiopulmonary abnormality. 2. Unchanged findings from CT performed on 01/16/2025, as detailed above. Reading Location: [id number]
[2025-01-28 19:00] VITALS: BP 133/85; PULSE 95; RESP 25; TEMP 36.9; O2SAT 100
[2025-01-28 19:45] LABS: Hematocrit 31.2 % (37-47); Hemoglobin 10.2 g/dL (12.0-15.0); Immature Granulocytes Count 0.020 X10^3/uL (0.0-0.0); Mean Corp Hgb Conc 32.7 g/dL (32-36); Mean Corpuscular Volume 94.5 fL (81-99); Mean Platelet Vol. 8.6 fl (6.2-12.0); NRBC Flagged by Analyzer 0 % (0-5); POSITIVE MORPHOLOGY YES; Platelet Count 439 K/mm3 (150-450); RBC Distribution Width CV 21.9 % (11.6-14.6); RBC Distribution Width SD 76.0 fl (35.1-43.9); Red Blood Count 3.30 M/mm3 (4.2-5.4); White Blood Count 5.3 K/mm3 (4.4-11.0)
[2025-01-28 20:00] VITALS: BP 134/89; PULSE 88; RESP 14; O2SAT 100
--- OUTSIDE RECORDS SUMMARY | 2025-01-28 20:03 | XMS RPT_ITS | CCD ---
Author Organization [facility] Care Team Providers Care Crisis Nurse Name Role Phone TU HECTOR DO Primary Care Physician [phone] Unavailable Primary Care Provider Tu Dasilva DO Primary Care Provider [phone] TU HECTOR DO Primary Care Physician [phone] CHRIS ALATORRE DO Attending Unavailable TAWNY DO, UT Primary Care Unavailable TAWNY CAT, TU Primary Care Unavailable TU HECTOR DO Attending Unavailable TAWNY CAT, TU Primary Care Unavailable TU HECTOR DO Attending Unavailable TAWNY CAT, TU Primary Care Unavailable TU HECTOR DO Attending Unavailable TAWNY CAT, UT Primary Care Unavailable YURIDIA MYERS, DR FUNES Attending Unavailab le TAWNY DO, TU Primary Care Unavailable SHIKHA MYERS, MAXINE Be Attending Unavail able YURIDIA MYERS, DR FUNES Attending Unavailab le TAWNY CAT, TU Primary Care Unavailable CHRIS ALATORRE DO Attending Unavailable TAWNY DO, TU Primary Care Unavailable TAWNY DO, TU Primary Care Unavailable YURIDIA MYERS, DR FUNES Attending Unavailab le Unavailable Primary Care Provider UnavailSERGIO Stone Referring Unavailable MAST GARAGE WORKER-RX SPECIALIST, JOSELIN Attending UnavailTU Prieto DO Primary Care Unavailable TAWNY CAT TU Primary Care Unavailable MAST GARAGE WORKER-RX SPECIALIST, JOSELIN Attending Unavailbk HECTOR DO, TU Primary Care Unavailable MAST GARAGE WORKER-RX SPECIALIST, JOSELIN Attending Unavailbk HECTOR DO, TU Primary Care Unavailable MAST GARAGE WORKER-MARIA G, JOSELIN Attending UnavailDr. Tu Prieto DO Primary Care Provider [phone] Dr. Anh Irene DO Attending Provider Teto CAT, Dr. Kamara Emergency Provider [phone] Crow MYERS, Dr. Perez Attending Provider Crow MYERS, Dr. Perez Emergency Provider Crow MYERS, Dr. Perez Referring Provider [phone] Robson MYERS, Dr. Snell Attending Provider Robson MYERS, Dr. Snell Referring Provider Tawny CAT, Dr. Mata Referring Provider Destini HOSPICE COORDINATOR-C, Rhiannon Attending Provider Destini HOSPICE COORDINATOR-C, Rhiannon Referring Provider Chuck CAT, Dr. Ferguson Emergency Provider Dr. Marty Woods DO Attending Provider Tawny CAT, Dr. Mata Attending Provider Dr. Tu Hector DO Primary Care Provider [phone] Tay Dumont MD Emergency Provider [phone] JOSELYN TUCKER Attending Unavailable MAST, JOSELIN Referring Unavailable TAWNY, TU Primary Care Unavailable FORTUNE, SILVIO Attending Unavailable TAWNY, TU Primary Care Unavailable RACHEL JOHNSON Attending Unava ilable TAWNY, TU Primary Care Unavailable WILFRIDO LUIS Attending Unavailable TAWNY, TU Primary Care Unavailable FORTUNE, SILVIO Attending Unavailable FORTUNE, SILVIO Referring Unavailable TAWNY, TU Primary Care Unavailable FORTUNE, SILVIO Attending Unavailable FORTUNE, SILVIO Referring Unavailable TAWNY, TU Primary Care Unavailable NONE, PCP Referring Unavailable TAWNY, TU Primary Care Unavailable EMILE HORNE Attending Unavailable EMILE HORNE Admitting Unavailable CAIN MEJIA Admitting Unavailable CAIN MEJIA Attending Unavailable TAWNY, TU Primary Care Unavailable LACHO-RACHEL KAMARA Attending Unava ilable TAWNY, TU Primary Care Unavailable FORTUNE, SILVIO Attending Unavailable TAWNY, TU Primary Care Unavailable TAWNY DO, TU Primary Care Unavailable ENID FORMAN MD Attending Unavailable NOHEMY MYERS, DR JANNETH Browne Attending Estuardo ragland TAWNY DO, TU Primary Care Unavailable Julia MYERS, Tay Attending Provider Sachi MYERS, Dr. Anna Attending Provider Audelia HOSPICE COORDINATOR-C, Anayeli Attending Provider Fabiola MYERS, Dr. Nelson Attending Provider Fabiola MYERS, Dr. Nelson Referring Provider Fabiola MYERS, Dr. Nelson Other Provider Lito MYERS, Dr. Boateng Attending Provider Robson MYERS, Dr. Snell Referring Provider Robson MYERS, Dr. Snell Referring Provider Dr. Tu Hector DO Primary Care Provider Destini HOSPICE COORDINATOR-C, Rhiannon Attending Provider Destini HOSPICE COORDINATOR-C, Rhiannon Referring Provider Dr. Jose Perdomo DO Attending Provider [phone] Tu Hector DO Referring Provider Dr. Alis Chance MD Attending Provider Dr. Alis Chance MD Referring Provider Audelia HOSPICE COORDINATOR-C, Anayeli Referring Provider Dr. Alis Chance MD Referring Provider Jose Perdomo Attending Unavailable Tawny, Tu Primary Care Unavailable Georges HOSPICE COORDINATOR, Rhiannon Referring Unavailable Tawny, Tu Referring Unavailable Tawny, Tu Primary Care Unavailable Alis Chance Attending Unavailable Tawny, Tu Referring Unavailable Tawny, Tu Primary Care Unavailable Audelia HOSPICE COORDINATOR, Anayeli Attending Unavailable Marty Woods Attending Unavailable Tawny, Tu Primary Care Unavailable Tawny, Tu Primary Care Unavailable Anh Irene Attending Unavailable Tawny, Tu Primary Care Unavailable Chris Maria Attending Unavailable Tawny, Tu Referring Unavailable Tawny, Tu Primary Care Unavailable CalabrKhushi olivierony Attending Unavailable Tawny, Tu Primary Care Unavailable Tawny, Tu Referring Unavailable Isckarus, Mauriceour Attending Unavailable Tawny, Tu Primary Care Unavailable Tawny, Tu Referring Unavailable Audelia HOSPICE COORDINATOR, Anayeli Attending Unavailable Tawny, Tu Primary Care Unavailable Georges HOSPICE COORDINATOR, Rhiannon Attending Unavailable Georges HOSPICE COORDINATOR, Rhiannon Referring Unavailable Tawny, Tu Referring Unavailable Tawny, Tu Attending Unavailable Tawny, Tu Primary Care Unavailable Georges HOSPICE COORDINATOR, Rhiannon Attending Unavailable Tawny, Tu Primary Care Unavailable Georges HOSPICE COORDINATOR, Rhiannon Referring Unavailable Tawny, Tu Primary Care Unavailable Tay Dumont Attending Unavailable Tawny, Tu Primary Care Unavailable Fabiola Omar Referring Unavailable Omar Hicks Attending Unavailable Audelia HOSPICE COORDINATOR, Anayeli Referring Unavailable Audelia HOSPICE COORDINATOR, Anayeli Attending Unavailable Tawny, Tu Primary Care Unavailable Tawny, Tu Referring Unavailable Georges HOSPICE COORDINATOR, Rhiannon Attending Unavailable Tawny, Tu Primary Care Unavailable Tawny, Tu Primary Care Unavailable Tawny, Tu Referring Unavailable Wilfrido Karimi Attending Unavailable Tawny, Tu Referring Unavailable Tawny, Tu Primary Care Unavailable Audelia HOSPICE COORDINATOR, Anayeli Attending Unavailable Tawny, Tu Primary Care Unavailable Isckarus, Mauriceour Attending Unavailable Isckarus, Mansour Referring Unavailable Tawny, Tu Primary Care Unavailable Isckarus, Mauriceour Attending Unavailable Isckarus, Mansour Referring Unavailable Georges HOSPICE COORDINATOR, Rhiannon Attending Unavailable Tawny, Tu Primary Care Unavailable Georges HOSPICE COORDINATOR, Rhiannon Referring Unavailable Jose Perdomo Attending Unavailable Tawny, Tu Primary Care Unavailable Tawny, Tu Primary Care Unavailable Isckarus, Mansour Attending Unavailable Chris Maria Referring Unavailable Tawny, Tu Referring Unavailable Tawny, Tu Primary Care Unavailable Audelia HOSPICE COORDINATOR, Anayeli Attending Unavailable Tawny, Tu Primary Care Unavailable Tawny, Tu Referring Unavailable Kilo Morse Attending Unavailable Tawny, Tu Primary Care Unavailable Lamontabretta Omar Referring Unavailable Omar Hicks Attending Unavailable CalabrettaKhusihOmar Consulting Unavailable Tawny, Tu Referring Unavailable Tawny, Tu Primary Care Unavailable Georges HOSPICE COORDINATOR, Rhiannon Attending Unavailable Tawny, Tu Primary Care Unavailable Tawny, Tu Referring Unavailable Alis Chance Attending Unavailable Allergies Allergy Classification Reported Allergen(s) Allergy Type Date of Onset Reaction(s) Facility Alendronate (1 source) Alendronate; Translations: [alendronate] Drug Allergy Swelling / lump finding (finding), Muscle pain (finding) [facility] [place] Cephalosporins (antibiotic) (1 source) Cefaclor; Translations: [cefaclor] Drug Allergy [facility] Macrolides (antibiotic) (1 source) Erythromycin; Translations: [erythromycin] Drug Allergy Stomach pain [facility] Opioid Agonists (2 sources) Morphine; Translations: [morphine] Drug Allergy Vomiting, Itching [facility] Penicillins (antibiotic) (1 source) Penicillin; Translations: [penicillin] Drug Allergy [facility] (20 sources) Alendronate; Translations: [alendronate] Drug Allergy 023 Swelling / lump finding (finding), Muscle pain (finding) [facility] Work Phone: (20 sources) Cefaclor; Translations: [cefaclor] Drug Allergy 007 [facility] Work Phone: (20 sources) Erythromycin; Translations: [erythromycin] Drug Allergy 007 GI Upset, Nausea And Vomiting [facility] Work Phone: (20 sources) Morphine; Translations: [morphine] Drug Allergy 019 Nausea And Vomiting [facility] Work Phone: (17 sources) Penicillin; Translations: [penicillin] Drug Allergy [facility] Work Phone: (20 sources) traMADol; Translations: [tramadol] Drug Allergy 007 Hives, Itching, Nausea And Vomiting [facility] Work Phone: (8 sources) Aspirin / oxyCODONE Hydrochloride / oxyCODONE terephthalate; Translations: [OXYCODONE [id number]] Drug Allergy 013 Vomiting [facility] Work Phone: (20 sources) hydroCHLOROthiazide / Triamterene; Translations: [TRIAMTERENE-HYDROCHLO ROTHIAZID] Drug Allergy Rash [facility] Work Phone: (8 sources) Penicillins; Translations: [PENICILLINS] Propensity to adverse reactions [facility] Work Phone: (19 sources) traMADol; Translations: [TRAMADOL HCL] Drug Allergy Vomiting [facility] Work Phone: [phone] (20 sources) famciclovir; Translations: [FAMCICLOVIR] Drug Allergy [facility] (20 sources) gabapentin; Translations: [GABAPENTIN] Drug Allergy Unknown [facility] (20 sources) Penicillins Drug Intolerance [facility] (20 sources) Erythromycin Base; Translations: [erythromycin base] Drug Allergy 017 Nausea Only [facility] (15 sources) Alendronate Drug Allergy Myalgia, Other: See Comments [facility] (11 sources) Penicillins Allergy to substance [facility] (4 sources) famciclovir Drug Allergy Unknown [facility] (4 sources) predniSONE; Translations: [PREDNISONE] Drug Allergy 024 Other: See Comments, Dizziness (finding) [facility] (8 sources) ezetimibe; Translations: [ezetimibe] Drug Allergy Cough (finding), Muscle pain (finding), Blister - unit of product usage (qualifier value) [facility] [place] Comment on above: cough, myalgia, blis ters (9 sources) Opioids - Morphine Analogues Allergy to substance [facility] (1 source) calcipotriene Drug Allergy [facility] (1 source) hydroCHLOROthiazide Drug Allergy reaction [facility] Comment on above: Was told it can caus e cancer family had bad experience (1 source) Alendronate Drug Allergy [facility] (1 source) calcipotriene Drug Allergy [facility] (1 source) Cefaclor Drug Allergy [facility] (1 source) ezetimibe Drug Allergy [facility] (1 source) hydroCHLOROthiazide Drug Allergy [facility] (1 source) Penicillins Drug allergy (disorder) [facility] (1 source) traMADol Drug Allergy [facility] (1 source) Opioids - Morphine Analogues Drug allergy (disorder) [facility] Medications Current Medications Medication Drug Class(es) Dates Sig (Normalized) Sig (Original) acetaminophen 325 mg oral tablet (19 sources) Start: 10-06-2024 End: 10-16-2024 take 2 tablets by mouth every six hours as needed for pain and fever acetaminophen (Tylenol) 325 MG tablet Take 2 tablets (650 mg) by mouth every 6 hours as needed for mild pain (1-3) or fever (For temp greater than 100.4 F (38 C)) for up to 10 days. 10/06/2024 10/16/2024 Active Start: 10-05-2024 End: 10-06-2024 take 1 tablet by mouth every six hours as needed for pain and fever acetaminophen (Tylenol) tablet 650 mg End: 10-05-2024 acetaminophen (Tylenol Extra Strength) 500 MG tablet Take by mouth. 10/05/2024 Discontinued (Entered in error) albuterol 0.83 mg/ml inhalation solution (20 sources) beta2-Adrenergic Agonist Start: 11-08-2024 take 1 dose by inhalation every six hours as needed albuterol 2.5 mg/3 mL (0.083%) inhalation solution Dose : 2.5 mg = 3 mL, Inhalation, q6hr, PRN as needed for wheezing, # 30 EA, 2 Refill(s), Pharmacy: [facility], SOB (shortness of breath) COPD without exacerbation, 160, cm, 09/26/24 9:15:00 EDT, Height, kg, 09/26/24 9:15:00 EDT, Dosing Weight Start Date: 11/08/24 Status: Ordered Quantity: 30.0 Unit: EA Repeat number: 3 Indications: Shortness of breath; Chronic obstructive pulmonary disease, unspecified; Start: 10-05-2024 End: 10-06-2024 Start: 10-03-2024 End: 10-03-2025 take 2 puff(s) by inhalation every four hours as needed for wheezing albuterol (Ventolin HFA) 108 (90 Base) MCG/ACT inhaler Indications: Pulmonary emphysema, unspecified emphysema type (HCC) Inhale 2 puffs every 4 hours as needed for wheezing or shortness of breath. 8 g 11 10/03/2024 10/03/2025 Active Start: 09-22-2024 Albuterol Sulf ate 2.5 mg /3 mL (0.083 %) solution for nebulization Active 2.5 mg INHALATION NEEDED as needed for shortness of breath or wheezing September 22, 2024 1:00am Start: 06-19-2024 End: 2024 take 2 puff(s) by inhalation four times daily as needed for wheezing Ventolin HFA MDI (90 mcg/inh) inhalation aerosol 2 puff(s), Inhalation, QID, PRN as needed for wheezing, # 1 EA, 5 Refill(s), Pharmacy: [facility] #[id number], Cough Acute URI, 160, cm, 06/19/24 13:52:00 EST, Height, kg, 06/19/24 13:52:00 EST, Dosing Weight Start Date: 06/19/24 Stop Date: 12/16/24 Status: Ordered Quantity: 1.0 Unit: EA Repeat number: 6 Indications: Cough; Acute upper respiratory infection, unspecified; Start: 11-11-2023 End: 05-09-2024 take 2 puff(s) by inhalation four times daily as needed for wheezing Ventolin HFA MDI (90 mcg/inh) inhalation aerosol 2 puff(s), Inhalation, QID, PRN as needed for wheezing, # 1 EA, 5 Refill(s), Pharmacy: [facility] #[id number], Cough Acute URI, 161, cm, 09/29/23 12:28:00 EDT, Height, kg, 09/29/23 12:28:00 EDT, Dosing Weight Start Date: 11/11/23 Stop Date: 05/09/24 Status: Ordered Start: 09-07-2023 End: 12-06-2023 take 2 puff(s) by inhalation four times daily as needed for wheezing Ventolin HFA MDI (90 mcg/inh) inhalation aerosol 2 puff(s), Inhalation, QID, PRN as needed for wheezing, # 1 EA, 2 Refill(s), Pharmacy: [facility] #[id number], Cough Acute URI, 161.5, cm, 07/06/23 10:58:00 EST, Height, kg, 07/06/23 10:58:00 EST, Dosing Weight Start Date: 09/07/23 Stop Date: 12/06/23 Status: Ordered Start: 01-06-2023 End: 07-05-2023 take 2 puff(s) by inhalation four times daily as needed for wheezing Ventolin HFA MDI (90 mcg/inh) inhalation aerosol 2 puff(s), Inhalation, QID, PRN as needed for wheezing, # 1 EA, 5 Refill(s), Pharmacy: [facility] #[id number], Moderate tobacco dependence Persistent cough, 159, cm, 01/06/23 13:31:00 EDT, Height, kg, 01/06/23 13:31:00 EDT, Dosing Weight Start Date: 01/06/23 Stop Date: 07/05/23 Status: Ordered Start: 07-03-2022 End: 12-30-2022 take 2 puff(s) by inhalation four times daily as needed for wheezing Ventolin HFA MDI (90 mcg/inh) inhalation aerosol 2 puff(s), Inhalation, QID, PRN as needed for wheezing, # 1 EA, 5 Refill(s), Pharmacy: [facility] #[id number], Moderate tobacco dependence, 159, cm, 07/03/22 14:04:00 EST, Height, kg, 07/03/22 14:04:00 EST, Dosing Weight Start Date: 07/03/22 Stop Date: 12/30/22 Status: Ordered Start: 07-01-2021 End: 12-28-2021 take 2 puff(s) by inhalation four times daily as needed for wheezing Ventolin HFA MDI (90 mcg/inh) inhalation aerosol 2 puff(s), Inhalation, QID, PRN as needed for wheezing, # 1 EA, 5 Refill(s), [facility]: [id number], Moderate tobacco dependence, 162, cm, 07/01/21 14:16:00 EST, Height, kg, 07/01/21 14:16:00 EST, Dosing Weight Start Date: 07/01/21 Stop Date: 12/28/21 Status: Ordered Start: 08-24-2019 Albuterol Sulf ate 1 INHALER inhaler Active 1 - 2 NMA INHALATION EVERY 4 HOURS NEEDED as needed for Sob &/Or Wheezing August 24, 2019 1:00am Start: 08-24-2019 take 1 puff(s) by in halation every four hours as needed Albuterol Sulfate Active 1 - 2 PUFF INHALATION EVERY 4 HOURS NEEDED August 24, 2019 1:00am Start: 10-30-2008 take 2 puff(s) by in halation four times daily ALBUTEROL SULFATE HFA 90 MCG/ACTUATION AEROSOL INHALER take 2 puffs four times daily. 0 10/30/2008 Active Comment on above: take 2 puffs four ti mes daily. Albuterol Sulfate 2.5 mg /3 mL (0.083 %) solution for nebulization (2 sources) Start: 09-22-2024 Albuterol Sulfate 2.5 mg /3 mL (0.083 %) solution for nebulization Active mg INHALATION September 22, 2024 1:00am ALPRAZolam 0.5 mg oral tablet (20 sources) Benzodiazepine Start: 10-10-2024 End: 10-18-2024 ALPRAZolam (Xanax) 0.5 MG tablet Indications: Hilar mass Take 1 tablet (0.5 mg) by mouth 1 time for 1 dose. Take 30 minutes prior to PET scan 1 tablet 10/18/2024 Active Ascorbic Acid (8 sources) Vitamin C Start: 05-01-2022 Vitamin C qDay, 0 Refill(s) Start Date: 05/01/22 Status: Ordered take 500 mg by mouth once daily Ascorbic Acid 500 mg chew Take 500 mg by mouth once daily. Active Comment on above: Take 500 mg by mouth once daily. benzonatate 100 mg oral capsule (11 sources) Non-narcotic Antitussive Start: 07-18-20 End: 08-14-19 take 1 capsule by mouth three times daily as needed for cough benzonatate (TESSALON PERLES) 100 mg capsule Indications: Viral bronchitis Take 1 capsule by mouth three times daily as needed for cough. 20 capsule 08/03/2021 Active Comment on above: Take 1 capsule by [facility] three times daily as needed for cough. bisacodyl 5 mg delayed release oral tablet (3 sources) Stimulant Laxative Start: 12-14-19 take 1 tablet by mouth once daily Bisacodyl 5 mg tablet Active 5 mg PO DAILY December 13, 2024 12:00am Budesonide-Formotero l (20 sources) Corticosteroid, beta2-Adrenergic Agonist Start: 11-10-19 take 2 puff(s) by inhalation in the morning Budesonide-Formoter ol 80-4.5 mcg/actuation HFA aerosol inhaler Active 2 NMA INHALATION .x4 November 09, 2024 9:19am 2 puffs in morning, 2 puffs at night Start: 09-13-2024 End: 10-17-2024 take 2 puff(s) by inhalation twice daily budesonide-formoterol (Symbicort) 80-4.5 MCG/ACT inhaler Indications: Chronic obstructive pulmonary disease, unspecified COPD type (HCC) Inhale 2 puffs 2 times daily. 1 each 3 10/17/2024 Active Start: 09-13-2024 End: 11-09-2024 take 2 puff(s) by inhalation in the morning Budesonide-Formoterol 80-4.5 mcg/actuation HFA aerosol inhaler Discontinued 1 NMA INHALATION .x4 September 13, 2024 1:00am November 09, 2024 9:23am 2 puffs in morning, 2 puffs at night Start: 09-13-2024 take 2 puff(s) by in halation in the morning Budesonide-Formoterol 80-4.5 mcg/actuation HFA aerosol inhaler Active 1 NMA INHALATION .x4 September 13, 2024 1:00am 2 puffs in morning, 2 puffs at night Start: 09-13-2024 Budesonide-For moterol 80-4.5 mcg/actuation HFA aerosol inhaler Active INHALATION September 13, 2024 1:00am busPIRone hydrochloride 10 m g oral tablet (20 sources) Start: 08-24-2019 busPIRone (BUS PAR) 10 mg tablet Buspirone Hcl Active 10 MG THREE TIMES A DAY August 24, 2019 9:19am 08/24/2019 Active Start: 08-24-2019 End: 11-13-2024 take 1 tablet by mouth three times daily as needed for anxiety Buspirone 10 mg tablet Active 10 mg PO THREE TIMES A DAY as needed for anxiety November 13, 2024 10:01am Comment on above: Buspirone Hcl Active 10 MG THREE TIMES A DAY August 24, 2019 9:19am calcium carbonate 1500 mg oral tablet (4 sources) Start: 06-26-2020 calcium (as carbonate) 600 mg oral tablet Dose : 1,200 mg = 2 tab(s), Oral, qDay, 0 Refill(s) Start Date: 06/26/20 Status: Ordered CALCIUM-VITAMIN D3 ORAL (7 sources) CALCIUM-VITAMIN D3 ORAL Take by mouth. Active CALCIUM-VITAMIN D3 ORAL Take by mouth. 0 Active Comment on above: Take by mouth. citalopram 20 mg oral tablet (7 sources) Serotonin Reuptake Inhibitor Start: 02-03-2007 citalopram (CELEXA) 20 mg ORAL Tab Take by mouth. 0 02/03/2007 Active Comment on above: Take one(1) tablet d aily. clindamycin 300 mg oral capsule (13 sources) Lincosamide Antibacterial Start: 11-24-2024 End: 12-01-2024 clindamycin 300 mg oral capsule Dose : 300 mg = 1 cap(s), Oral, TID, X 7 day(s), # 21 cap(s), 0 Refill(s), 12/01/24 2:57:00 PM EDT, 73.4 Start Date: 11/24/24 Stop Date: 12/01/24 Status: Ordered Quantity: 21.0 Unit: cap(s) Repeat number: 1 Start: 07-13-2023 End: 09-13-2024 take 1 capsule by mouth every eight hours Clindamycin Hcl 300 mg capsule Discontinued 300 mg PO Q8H 21 7 0 July 13, 2023 1:00am September 13, 2024 8:37pm Start: 12-20-2022 End: 12-30-2022 clindamycin 300 mg oral caps ule Dose : 300 mg = 1 cap(s), Oral, TID, Take with a probiotic, X 10 day(s), # 30 cap(s), 0 Refill(s), 12/30/22 14:28:00 EDT, 74.2 Start Date: 12/20/22 Stop Date: 12/30/22 Status: Ordered diazePAM 5 mg oral tablet (7 sources) Benzodiazepine take 1 tablet by mouth every six hours as needed diazePAM (VALIUM) 5 mg tablet Take 5 mg by mouth every 6 hours as needed. Active Comment on above: Take 5 mg by mouth e very 6 hours as needed. docusate sodium 100 mg oral capsule (7 sources) Start: 11-17-2024 Docusate Sodium (Dulcolax Stool Softener (Dss)) 100 mg capsule Active 200 mg PO daily November 17, 2024 12:00am Start: 07-03-2022 take 1 mg by mouth twice daily Dulcolax Stool Softener mg =, Oral, BID, 0 Refill(s) Start Date: 07/03/22 Status: Ordered ezetimibe 10 mg oral tablet (1 source) Dietary Cholesterol Absorption Inhibitor Start: 02-02-2024 ezetimibe 10 mg oral tablet Dose : 10 mg = 1 tab(s), Oral, qDay, Discontinue simvastatin prescription please, # 90 tab(s), 1 Refill(s), [facility]acy: [facility] #[id number], Hyperlipidemia, 160, cm, 02/02/24 13:09:00 EDT, Height, kg, 02/02/24 13:09:00 EDT, Dosing Weight Start Date: 02/02/24 Status: Ordered ferrous sulfate 325 mg delayed release oral tablet (16 sources) Start: 11-17-2024 take 1 tablet by mouth once daily Ferrous Sulfate 325 mg (65 mg iron) tablet,delayed release (DR/EC) Active 325 mg PO daily November 17, 2024 11:37am Start: 11-13-2024 End: 11-17-2024 take 1 tablet by mouth twice daily Ferrous Sulfate 325 mg (65 mg iron) tablet,delayed release (DR/EC) Discontinued 325 mg PO TWICE A DAY November 13, 2024 12:00am November 17, 2024 11:37am Start: 07-27-2024 IRON (ferrous sulfate 325 mg) 65 mg oral tablet Dose : 325 mg = 1 tab(s), Oral, BIDM, Take with food., # 60 tab(s), 3 Refill(s) Start Date: 07/27/24 Status: Ordered Quantity: 60.0 Unit: tab(s) Repeat number: 1 FERROUS SULFATE (FE-TABS ORAL) Take by mouth. Active FERROUS SULFATE (FE-TABS ORAL) Take by mouth. 0 Active Comment on above: Take by mouth. FLUoxetine 10 mg oral capsule (7 sources) Serotonin Reuptake Inhibitor take 1 capsule by mouth once daily FLUoxetine (PROZAC) 10 mg capsule Take 10 mg by mouth once daily. Active Comment on above: Take 10 mg by mouth once daily. fluticasone propionate 0.05 mg/actuat metered dose nasal spray (14 sources) Corticosteroid Start: 11-30-19 take 2 spray(s) by mouth once daily fluticasone (FLONASE) 50 mcg/actuation nasal spray Indications: URI with cough and congestion Use 2 Sprays in each nostril once daily. Rinse mouth after use. 1 Bottle 11/29/2018 Active Start: 07-18-2018 take 2 puff(s) by in halation twice daily fluticasone (FLOVENT HFA) 110 mcg/actuation inhaler Indications: Bronchitis Inhale 2 Puffs as instructed twice daily. 1 Inhaler 5 07/18/2018 Active Comment on above: Inhale 2 Puffs as in structed twice daily. Use 2 Sprays in each nostril once daily. Rinse mouth after use. guaiFENesin (10 sources) Start: 07-03-2022 take 1 tablet by mouth twice daily Mucinex D 60 mg-600 mg oral tablet, extended release tab(s), Oral, BID, 0 Refill(s) Start Date: 07/03/22 Status: Ordered Start: 07-18-2018 take 2 tablets by mo [facility] twice daily guaiFENesin (MUCINEX) 600 mg 12 hr tablet Indications: Bronchitis Take 2 tablets by mouth twice daily. 60 tablet 07/18/2018 Active Comment on above: Take 2 tablets by mo uth twice daily. 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 Active Comment on above: Take 10 mg by mouth once daily. loratadine 10 mg oral tablet (20 sources) Start: 08-24-2019 End: 08-03-2024 take 1 tablet by mouth once daily Loratadine 10 MG tablet Active 10 mg PO DAILY August 24, 2019 1:00am loratadine (Clar itin) 5 MG chewable tablet Chew 5 mg daily. Active lovastatin 20 mg oral tablet (7 sources) HMG-CoA Reductase Inhibitor take 1 tablet by mouth once daily at bedtime lovastatin (MEVACOR) 20 mg tablet Take 20 mg by mouth daily at bedtime. Active Comment on above: Take 20 mg by mouth daily at bedtime. mecobalamin 1 mg chewable tablet (4 sources) Start: take 1 tablet by mouth once daily Mecobalamin (Vitamin B12) 1,000 mcg tablet,chewable Active 1000 ug PO daily November 13, 2024 12:00am melatonin 2.5 mg chewable tablet (20 sources) Start: End: take 10 mg by mouth once daily 10 mg, Oral, Nightly, First dose on Wed10/05/24 at 2230 Start: 10-05-2024 End: 11-09-2024 take 1 tablet by mouth at bedtime as needed for sleep Melatonin 2.5 mg tablet,chewable Active 2.5 mg PO AT BEDTIME as needed for sleep November 09, 2024 9:22am Multiple Vitamin (multivitamin) capsule (20 sources) take 1 capsule by mouth once daily Multiple Vitamin (multivitamin) capsule Take 1 capsule by mouth daily. Suspended take 1 capsule by mouth once zee ly Multiple Vitamin (multivitamin) capsule Take 1 capsule by mouth daily. Active Multivitamin tablet (9 sources) Start: 09-18-2024 Multivitamin t ablet Active 1 {tbl} PO EVERY MORNING September 18, 2024 1:00am nabumetone 500 mg oral tablet (3 sources) Nonsteroidal Anti-inflammatory Drug Start: 07-03-2022 nabumetone 500 mg oral tablet Dose : 500 mg = 1 tab(s), Oral, BID, # 60 tab(s), 0 Refill(s) Start Date: 07/03/22 Status: Ordered [place]-3 Fatty Acids (OMEGA 3 500 PO) (20 sources) [place]-3 Fatty Ac ids (OMEGA 3 500 PO) Take by mouth daily. Suspended [place]-3 Fatty Ac ids (OMEGA 3 500 PO) Take by mouth daily. Active [place]-3 Fatty Ac ids (OMEGA 3 500 PO) Take by mouth. 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 osteo matrix (4 sources) Start: 11-17-2024 osteo matrix Active PO DAILY November 17, 2024 12:00am oxyCODONE hydrochloride 10 mg oral tablet (13 sources) Opioid Agonist Start: 11-22-2024 take 2 tablets by mouth twice daily as needed for pain Oxycodone 10 mg tablet Active 20 mg PO TWICE A DAY as needed for pain 0 November 22, 2024 12:00am Start: 10-05-2024 End: 10-06-2024 take 1 tablet by mouth every six hours as needed for pain oxyCODONE (Roxicodone) immediate release tablet 5 mg Start: 10-06-2012 take 1 tablet by gregg th every twelve hours oxyCODONE ER (OXYCONTIN) 40 mg Tb12 Take 1 tablet by mouth every 12 hours. 0 10/06/2012 Active Comment on above: Take 1 tablet by gregg th every 12 hours. pantoprazole 40 mg delayed release oral tablet (20 sources) Proton Pump Inhibitor Start: take 1 tablet by mouth once daily Pantoprazole 40 mg tablet,delayed release (DR/EC) Active 40 mg PO daily November 13, 2024 12:00am Start: 10-30-2008 End: 10-05-2024 take 1 tablet by mouth once daily Pantoprazole 40 MG tablet Discontinued 40 mg PO DAILY February 09, 2016 12:00am October 05, 2024 2:15pm Comment on above: Take by mouth. prochlorperazine 10 mg oral tablet (4 sources) Phenothiazine Start: 2024 take 1 tablet by mouth every six hours as needed for nausea and vomiting Prochlorperazine Maleate 10 mg tablet Active 10 mg PO EVERY 6 HOURS as needed for nausea and vomiting 30 2 October 26, 2024 12:00am Chemotherapy-induced nausea and vomiting Nausea with vomiting, unspecified Adverse effect of antineoplastic and immunosuppressive drugs, initial encounter Symbicort 80 mcg-4.5 mcg/inh Inhaler (1 source) Start: 2024 take 1 dose by inhalation twice daily Symbicort 80 mcg-4.5 mcg/inh Inhaler Dose = 2 puff(s), Inhalation, BID, # 6.9 gram(s), 0 Refill(s), [facility]: [facility] #[id number], 159, cm, 09/13/24 8:34:00 EST, Height, kg, 09/13/24 8:34:00 EST, Dosing Weight Start Date: 09/13/24 Status: Ordered Quantity: 6.9 Unit: g Repeat number: 1 torsemide 20 mg oral tablet (7 sources) Loop Diuretic Start: 2012 take 1 tablet by mouth once daily torsemide (DEMADEX) 20 mg tablet Take 1 tablet by mouth once daily. 0 10/06/2012 Active Comment on above: Take 1 tablet by gregg th once daily. traZODone hydrochloride 100 mg oral tablet (20 sources) Serotonin Reuptake Inhibitor Start: 2024 take 2 tablets by mouth at bedtime Trazodone 100 mg tablet Active 200 mg PO AT BEDTIME November 17, 2024 11:34am Start: 11-13-2024 End: 11-17-2024 Trazodone 100 mg tablet Disc ontinued 150 mg PO AT BEDTIME November 13, 2024 10:05am November 17, 2024 11:37am Start: 11-09-2024 End: 11-13-2024 take 2 tablets by mouth at bedtime Trazodone 100 mg tablet Discontinued 200 mg PO AT BEDTIME November 09, 2024 9:22am November 13, 2024 10:07am Start: 10-05-2024 End: 10-06-2024 take 200 mg by mouth once daily 200 mg, Oral, Nightly, First dose on Ricarda 10/05/24 at 2230 Start: 09-13-2024 End: 05-07-2025 take 1 tablet by mouth at bedtime Trazodone 100 mg tablet Discontinued 100 mg PO AT BEDTIME September 13, 2024 1:00am November 09, 2024 9:23am Start: 09-13-2024 Trazodone 100 mg tablet Active 150 mg PO AT BEDTIME September 13, 2024 1:00am Start: 01-06-2023 End: 03-27-2024 take 1 tablet by mouth once daily traZODone (Desyrel) 100 MG tablet Take 100 mg by mouth Nightly. 01/06/2023 Active Start: 07-03-2022 traZODone 100 mg oral tablet Dose : 100 mg = 1 tab(s), Oral, qHS, # 90 tab(s), 1 Refill(s), Pharmacy: [facility] #[id number], Insomnia, 159, cm, 07/03/22 14:04:00 EST, Height, kg, 07/03/22 14:04:00 EST, Dosing Weight Start Date: 07/03/22 Status: Ordered Start: 07-01-2021 traZODone 100 mg oral tablet Dose : 100 mg = 1 tab(s), Oral, qHS, Please cancel previous prescription sent in for this medication. Increased dose., # 90 tab(s), 0 Refill(s), [facility]: [id number], Insomnia, 162, cm, 07/01/21 14:16:00 EST, Height, kg, 07/01/21 14:1... Start Date: 07/01/21 Status: Ordered Start: 08-24-2019 traZODone (EMMA YREL) 50 mg tablet Trazodone Active 50 MG AT BEDTIME August 24, 2019 9:19am 08/24/2019 Active Start: 08-24-2019 End: 09-18-2024 take 1 tablet by mouth at bedtime Trazodone 50 MG tablet Discontinued 50 mg PO AT BEDTIME August 24, 2019 1:00am September 18, 2024 2:13pm Comment on above: Trazodone Active 50 MG AT BEDTIME August 24, 2019 9:19am turmeric extract 500 mg oral capsule (7 sources) Start: 4 turmeric 500 mg oral capsule Dose : 500 mg = 1 cap(s), Oral, BID, 0 Refill(s) Start Date: 09/29/23 Status: Ordered valACYclovir 500 mg oral tablet (20 sources) Herpesvirus Nucleoside Analog DNA Polymerase Inhibitor, Herpes Simplex Virus Nucleoside Analog DNA Polymerase Inhibitor, Herpes Zoster Virus Nucleoside Analog DNA Polymerase Inhibitor Start: take 1 tablet by mouth once daily as needed Valacyclovir 500 mg tablet Active 500 mg PO daily as needed for shingles November 17, 2024 12:00am Start: 11-13-2024 End: 11-15-2024 take 1 tablet by mouth twice daily as needed Valacyclovir 500 mg tablet Discontinued 500 mg PO TWICE A DAY as needed for for outbreaks November 13, 2024 12:00am November 15, 2024 2:41pm Start: 10-05-2024 End: 11-03-2024 take 1 tablet by mouth twice daily Valacyclovir 500 mg tablet Discontinued 500 mg PO TWICE A DAY October 05, 2024 12:00am November 03, 2024 1:51pm Start: 09-20-2024 End: 09-26-2024 valACYclovir 500 mg oral tab let Dose : 500 mg = 1 tab(s), Oral, BID, take 1 tablet by mouth twice a day for 3 days for OUTBREAKS DRINK PLENTY OF FLUIDS, # 6 tab(s), 1 Refill(s), [facility]: [facility] #[id number], 160, cm, 02/27/25 11:43:00 EST, Height, 77.9, kg, 09/14/24 11:43:00 EST, Dosing Weight Start Date: 09/20/24 Stop Date: 09/26/24 Status: Ordered Quantity: 6.0 Unit: tab(s) Repeat number: 2 Start: 02-09-2016 End: 09-18-2024 take 1 tablet by mouth twice daily Valacyclovir (Valtrex) 500 MG tablet Discontinued 500 mg PO TWICE A DAY February 09, 2016 12:00am September 18, 2024 2:13pm Comment on above: Take 500 mg by mouth once daily. vitamin a 34250 unt oral capsule (3 sources) Vitamin A Start: 09-06-2019 vitamin A 25,000 units oral capsule Dose : 25,000 unit(s) = 1 cap(s), Oral, Daily, 0 Refill(s) Start Date: 09/06/19 Status: Ordered vitamin B12 (1 source) Vitamin B12 Start: 05-01-2022 Vitamin B12 0 Refill(s) Start Date: 05/01/22 Status: Ordered Vitamin B12 50 mcg oral tablet (8 sources) Start: 09-29-2023 Vitamin B12 50 mcg oral tablet Dose : 50 mcg = 1 tab(s), Oral, qDay, # 30 tab(s), 0 Refill(s) Start Date: 09/29/23 Status: Ordered Quantity: 30.0 Unit: tab(s) Repeat number: 1 Start: 09-29-2023 Vitamin B12 50 mcg oral tablet Dose : 50 mcg = 1 tab(s), Oral, qDay, # 30 tab(s), 0 Refill(s) Start Date: 09/29/23 Status: Ordered Vitamin D3 1000 intl units (25 mcg) oral capsule (4 sources) Start: 08-15-2019 Vitamin D3 100 0 intl units (25 mcg) oral capsule Dose : 1,000 International_Unit = 1 cap(s), Oral, qDay, # 75 cap(s), 0 Refill(s) Start Date: 08/15/19 Status: Ordered Vitamin D3 25 mcg (1000 intl units) oral capsule (5 sources) Start: 02-02-2024 Vitamin D3 25 mcg (1000 intl units) oral capsule Dose : 25 mcg = 1 cap(s), Oral, qDay, # 100 cap(s), 0 Refill(s) Start Date: 02/02/24 Status: Ordered Quantity: 100.0 Unit: cap(s) Repeat number: 1 Start: 02-02-2024 Vitamin D3 25 mcg (1000 intl units) oral capsule Dose : 25 mcg = 1 cap(s), Oral, qDay, # 100 cap(s), 0 Refill(s) Start Date: 02/02/24 Status: Ordered vitamin E 400 intl units oral capsule (3 sources) Start: 03-09-2017 vitamin E 400 intl units oral capsule Dose : 400 International_Unit = 1 cap(s), Oral, qDay, 0 Refill(s) Start Date: 03/09/17 Status: Ordered Zinc (1 source) Start: 07-03-2022 take 1 mg by mouth once daily Zinc mg =, Oral, qDay, 0 Refill(s) Start Date: 07/03/22 Status: Ordered zinc citrate 50 mg oral capsule (1 source) Start: 07-27-2024 zinc citrate 5 0 mg oral capsule 0 Refill(s) Start Date: 07/27/24 Status: Ordered Repeat number: 1 Completed/Discontinued Medications Medication Drug Class(es) Dates Sig (Normalized) Sig (Original) acetaminophen 325 mg / HYDROcodone bitartrate 5 mg oral tablet (11 sources) Opioid Agonist Start: 08-24-2019 End: 08-27-2019 Hydrocodone-Acetami nophen 1 TABLET tablet Discontinued 1 {tbl} PO EVERY 6 HOURS NEEDED as needed for Pain 10 3 0 August 24, 2019 August 26, 2019 1:00am August 27, 2019 1:09am Flank pain Unspecified abdominal pain Start: 08-24-2019 End: 08-27-2019 take 1 tablet by mouth every six hours as needed Hydrocodone-Acetaminophen Discontinued 1 TABLET PO EVERY 6 HOURS NEEDED 10 3 August 24, 2019 August 27, 2019 1:09am acetaminophen 325 mg / oxyCODONE hydrochloride 5 mg oral tablet (20 sources) Opioid Agonist Start: 10-06-2024 End: 10-11-2024 take 1 tablet by mouth every six hours as needed for pain oxyCODONE-acetaminophen (Percocet) 7.5-325 MG tablet Indications: Lung mass Take 1 tablet by mouth every 6 hours as needed for moderate pain (4-6) for up to 5 days. 15 tablet 10/06/2024 5:04 PM EDT 10/06/2024 10/11/2024 Active Start: 10-05-2024 End: 10-06-2024 take 1 tablet by mouth every eight hours as needed for pain 1 tablet, Oral, Every 8 hours PRN, moderate pain (4-6), Starting on Ricarda 10/05/24 at 2210, Maximum dose of acetaminophen is 4000 mg from all sources in 24 hours. Start: 09-13-2024 End: 11-22-2024 Oxycodone-Acetaminophen 5-32 5 mg tablet Discontinued 1 {tbl} PO EVERY 6 HOURS September 13, 2024 1:00am November 22, 2024 1:01pm pain Start: 09-13-2024 Oxycodone-Acet aminophen 5-325 mg tablet Active 1 {tbl} PO 3 TIMES DAILY NEEDED as needed for pain September 13, 2024 1:00am Start: 03-09-2023 acetaminophen- oxyCODONE 325 mg-5 mg oral tablet Dose = 1 tab(s), Oral, BID, 0 Refill(s), 74.1 Start Date: 03/09/23 Status: Ordered Start: 02-09-2016 End: 02-09-2016 Oxycodone-Acetaminophen 1 TA BLET tablet Discontinued 1 - 2 {tbl} PO EVERY 4 HOURS NEEDED as needed for Pain February 09, 2016 12:00am February 09, 2016 4:01pm Start: 02-09-2016 End: 02-09-2016 take 1 tablet by mouth every four hours as needed Oxycodone-Acetaminophen Discontinued 1 - 2 TABLET PO EVERY 4 HOURS NEEDED February 09, 2016 12:00am February 09, 2016 4:01pm Start: 10-30-2008 oxycodone hcl/ acetaminophen(PERCOCET 10 MG-325 MG TAB) Take one tablet as needed. 0 10/30/2008 Active End: 10-06-2024 oxyCODONE-acetaminophen (Per cocet) 5-325 MG tablet 10/06/2024 Discontinued (Stop taking at discharge) oxyCODONE-acetam inophen (PERCOCET) 5-325 mg tablet Take by mouth every 8 hours as needed for pain. Active Comment on above: Take one tablet as n eeded. albuterol 0.833 mg/ml / ipratropium bromide 0.167 mg/ml inhalation solution (20 sources) Anticholinergic, beta2-Adrenergic Agonist Start: 10-05-2024 End: 10-06-2024 3 mL, Nebulization, 3 times daily, First dose on Wed10/05/24 at 2245 Start: 10-05-2024 End: 10-06-2024 3 mL, Nebulization, Every 4 hours PRN, wheezing, Starting on Wed10/05/24 at 2234 ipratropium-albu terol (Duo-Neb) 0.5-2.5 mg/3 mL nebulizer solution Take 3 mL by nebulization every 6 hours. Active barium sulfate (Varibar [place], Varibar Honey) 40 % suspension 10 mL (2 sources) Start: 10-06-2024 End: 10-06-2024 take 10 mL by mouth once as needed 10 mL, Oral, IMG once PRN, contrast, Starting on Wed10/06/24 at 0858, For 1 dose barium sulfate (Varibar Pudding) 40 % oral paste 10 mL (2 sources) Start: 10-06-2024 End: 10-06-2024 10 mL, Oral, IMG once PRN, contrast, Starting on Wed10/06/24 at 0858, For 1 dose, Administer with oral syringe or spoon. Max cumulative dose of 30 mL. Discard any unused product 21 days after tube opened. barium sulfate (Varibar THIN Liquid) 40 % suspension 10 mL (2 sources) Start: 10-06-2024 End: 10-06-2024 take 10 mL by mouth once as needed 10 mL, Oral, IMG once PRN, contrast, Starting on Wed10/06/24 at 0857, For 1 dose cetirizine hydrochloride 10 mg oral tablet (20 sources) Histamine-1 Receptor Antagonist Start: 05-01-2022 End: 10-26-2024 take 1 tablet by mouth once daily Cetirizine (24hour Allergy) 10 mg tablet Discontinued 10 mg PO DAILY October 05, 2024 12:00am October 26, 2024 5:04pm cholecalciferol 0.025 mg oral capsule (20 sources) Vitamin D Start: 09-18-2024 End: 01-02-2025 take 1 capsule by mouth once daily Cholecalciferol (Vitamin D3) 25 mcg (1,000 unit) capsule Discontinued 25 ug PO daily September 18, 2024 1:00am January 02, 2025 10:01am take 1 capsule by mouth once zee ly cholecalciferol (Vitamin D-3) 25 MCG (1000 UT) capsule Take 1,000 Units by mouth daily. Active dexamethasone 1 mg/ml / tobramycin 3 mg/ml ophthalmic suspension (3 sources) Aminoglycoside Antibacterial, Corticosteroid Start: 06-28-2019 dexamethasone-tobramycin 0.1%-0.3% ophthalmic suspension instill 1 drop into both eyes twice a day Start Date: 06/28/19 Status: Ordered 1 ml diphenhydrAMINE hydrochloride 50 mg/ml cartridge (2 sources) Histamine-1 Receptor Antagonist Start: 10-09-2024 End: 10-09-2024 12.5 mg, IntraVENous, Once PRN, itching, Starting on Wed10/09/24 at 1546, For 1 dose, Recovery (only) doxycycline monohydrate 100 mg oral capsule (17 sources) Tetracycline-clas s Drug Start: 06-20-2024 End: 09-18-2024 take 1 capsule by mouth twice daily Doxycycline Monohydrate 100 mg capsule Discontinued 100 mg PO TWICE A DAY 20 June 20, 2024 1:00am September 18, 2024 2:12pm Start: 05-31-2024 End: 06-07-2024 take 1 tablet by mouth twice daily doxycycline (VIBRA-TABS) 100 mg tablet Take 1 tablet by mouth two times a day for 7 days. 14 tablet 05/31/2024 06/07/2024 Active Start: 02-21-2024 End: 03-02-2024 doxycycline hyclate 100 mg o ral tablet Dose : 100 mg = 1 tab(s), Oral, BID, X 10 day(s), # 20 tab(s), 0 Refill(s), 03/02/24 2:46:00 PM EDT, 72.5 Start Date: 02/21/24 Stop Date: 03/02/24 Status: Ordered Start: 01-28-2024 End: 02-11-2024 doxycycline hyclate 100 mg o ral capsule Dose : 100 mg = 1 cap(s), Oral, BID, X 14 day(s), # 28 cap(s), 0 Refill(s), 02/11/24 1:05:00 PM EDT, 74.4 Start Date: 01/28/24 Stop Date: 02/11/24 Status: Ordered Start: 12-20-2022 End: 12-30-2022 doxycycline hyclate 100 mg o ral tablet Dose : 100 mg = 1 tab(s), Oral, BID, Take with a probiotic, X 10 day(s), # 20 tab(s), 0 Refill(s), 12/30/22 14:28:00 EDT, 74.2 Start Date: 12/20/22 Stop Date: 12/30/22 Status: Ordered Start: 01-12-2021 End: 01-19-2021 take 1 tablet by mouth twice daily doxycycline (VIBRA-TABS) 100 mg tablet Take 1 tablet by mouth twice daily for 7 days. 14 tablet 01/12/2021 01/19/2021 0.4 ml enoxaparin sodium 100 mg/ml prefilled syringe (2 sources) Low Molecular Weight Heparin Start: 10-06-2024 End: 10-06-2024 F18 FDG radio-isotope injection 11.5 millicurie (2 sources) Start: 10-20-2024 End: 10-20-2024 11.5 millicurie, IntraVENous, Once, On Wed10/20/24 at 1400, For 1 dose 30 actuat fluticasone furoate 0.1 mg/actuat / umeclidinium 0.0625 mg/actuat / vilanterol 0.025 mg/actuat dry powder inhaler (6 sources) Anticholinergic, Corticosteroid, beta2-Adrenergic Agonist Start: 10-03-2024 End: 10-05-2024 Fluticasone-Umeclid in-Vilant (Trelegy Ellipta) 100-62.5-25 MCG/ACT aerosol powder Indications: Pulmonary emphysema, unspecified emphysema type (HCC) Inhale 1 Inhalation daily. 60 each 5 10/03/2024 10/05/2024 Discontinued 60 actuat formoterol fumarate 0.005 mg/actuat / mometasone furoate 0.2 mg/actuat metered dose inhaler (2 sources) Corticosteroid, beta2-Adrenergic Agonist Start: 10-05-2024 End: 10-06-2024 take 2 puff(s) by mouth twice daily 2 puff, Inhalation, 2 times daily, First dose on Wed10/05/24 at 2230, Rinse mouth with water after use to reduce aftertaste and incidence of candidiasis. Do not swallow. gabapentin 300 mg oral capsule (20 sources) Anti-epileptic Agent Start: 11-13-2024 End: 11-15-2024 take 1 capsule by mouth three times daily Gabapentin 300 mg capsule Discontinued 300 mg PO THREE TIMES A DAY November 13, 2024 12:00am November 15, 2024 2:39pm Start: 10-05-2024 End: 10-31-2024 take 1 capsule by mouth three times daily Gabapentin 300 mg capsule Discontinued 300 mg PO THREE TIMES A DAY October 05, 2024 12:00am October 31, 2024 8:14am gadopiclenol (Vueway) injection 7 mL (2 sources) Start: 10-17-2024 End: 10-17-2024 take 7 mL intravenously once as needed 7 mL, IntraVENous, IMG once PRN, contrast, Starting on Wed10/17/24 at 0844, For 1 dose hydroCHLOROthiazide 25 mg oral tablet (20 sources) Thiazide Diuretic Start: 11-03-2024 End: 01-23-2025 Hydrochlorothiazide 25 mg tablet Discontinued 12.5 mg PO MOTUWETHFRSA November 13, 2024 10:03am January 23, 2025 10:13am Start: 09-29-2021 End: 10-31-2024 take 1 tablet by mouth once daily Hydrochlorothiazide 25 mg tablet Discontinued 25 mg PO DAILY September 13, 2024 1:00am October 31, 2024 8:14am Comment on above: Take 25 mg by mouth. 1 ml HYDROmorphone hydrochloride 1 mg/ml cartridge (6 sources) Opioid Agonist Start: 10-09-2024 End: 10-09-2024 0.5 mg, IntraVENous, Every 5 min PRN, severe pain (7-10), Starting on Wed10/09/24 at 1546, For 4 doses, Recovery (only), For Phase I. If Phase II oral narcotics have been administered in the last 60 minutes, do not administer IV narcotics unless specifically approved by provider. Start: 10-09-2024 End: 10-09-2024 0.25 mg, IntraVENous, Every 5 min PRN, moderate pain (4-6), Starting on 10/09/24 at 1546, For 4 doses, Recovery (only), For Phase I. If Phase II oral narcotics have been administered in the last 60 minutes, do not administer IV narcotics unless specifically approved by provider. Start: 10-05-2024 End: 10-06-2024 take 0.5 mg intravenously every four hours as needed for pain 0.5 mg, IntraVENous, Every 4 hours PRN, severe pain (7-10), Starting on Ricarda 10/05/24 at 2216, If oral and injectable narcotics ordered, use oral first and only use injectable if oral is ineffective or cannot take oral. Do Not give oral and injectable within 1 hour of each other unless specifically ordered. labetalol (Normodyne,Trandate) injection 5 mg (2 sources) Start: 10-09-2024 End: 10-09-2024 labetalol (Normodyne,Trandate) injection 5 mg Lactobacillus Combination No.9 (Adult 50 Plus Probiotic) 4 billion cell capsule (9 sources) Start: 09-18-2024 End: 10-05-2024 take 4 capsules by mouth once daily Lactobacillus Combination No.9 (Adult 50 Plus Probiotic) 4 billion cell capsule Discontinued 4000 NMA PO daily September 18, 2024 1:00am October 05, 2024 2:15pm administer with a meal Start: 09-18-2024 take 4 capsules by m outh once daily Lactobacillus Combination No.9 (Adult 50 Plus Probiotic) 4 billion cell capsule Active 4000 NMA PO daily September 18, 2024 1:00am administer with a meal levoFLOXacin 750 mg oral tablet (11 sources) Quinolone Antimicrobial Start: 10-17-2024 End: 10-24-2024 take 1 tablet by mouth once daily levoFLOXacin (Levaquin) 750 MG tablet Indications: 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 7 tablet 10/17/2024 10/24/2024 1 ml LORazepam 2 mg/ml injection (2 sources) Benzodiazepine Start: 10-09-2024 End: 10-09-2024 0.5 mg, IntraVENous, Once PRN, for anxiety or muscle spasm., Starting on Wed10/09/24 at 1546, For 1 dose, Recovery (only), For IV doses dilute dose with 1ml NS. meloxicam 15 mg oral tablet (20 sources) Nonsteroidal Anti-inflammatory Drug Start: 11-13-2024 End: 11-15-2024 take 1 tablet by mouth once daily Meloxicam 15 mg tablet Discontinued 15 mg PO daily November 13, 2024 12:00am November 15, 2024 2:40pm Start: 10-05-2024 End: 10-31-2024 take 1 tablet by mouth once daily Meloxicam 15 mg tablet Discontinued 15 mg PO DAILY October 05, 2024 12:00am October 31, 2024 8:15am 1 ml meperidine hydrochloride 25 mg/ml cartridge (2 sources) Opioid Agonist Start: 10-09-2024 End: 10-09-2024 12.5 mg, IntraVENous, Every 5 min PRN, shivering, Starting on Wed10/09/24 at 1546, For 2 doses, Recovery (only), May give every 5 minutes to max of 25mg. Notify Anesthesia Provider before administration. Mult. Vitamins by Henrique (11 sources) Start: 12-23-2022 Mult. Vitamins by Henrique Orellana. Vitamins by Henrique, Carotomax, OmegaGuard, Osteo Matrix, Sona-Palak Gold w/ Vit. K, Optiflora D1, 0 Refill(s), 74.2 Start Date: 12/23/22 Status: Ordered Repeat number: 1 Start: 12-23-2022 Mult. Vitamins by Henrique Arzatet. Vitamins by Henrique, Carotomax, OmegaGuard, Osteo Matrix, Sona-Palak Gold w/ Vit. K, Optiflora D1, 0 Refill(s), 74.2 Start Date: 12/23/22 Status: Ordered Start: 12-23-2022 Mult. Vitamins by Henrique Arzatet. Vitamins by Henrique, 0 Refill(s), 74.2 Start Date: 12/23/22 Status: Ordered 1 ml naloxone hydrochloride 0.4 mg/ml injection (2 sources) Opioid Antagonist Start: 10-05-2024 End: 10-06-2024 0.4 mg, IntraVENous, PRN, opioid reversal, Starting on Ricarda 10/05/24 at 2016, For oversedation/difficult to rouse, pinpoint pupils, RR [place]-3 Fatty Acids 1,000 mg capsule (13 sources) Start: 11-13-2024 End: 11-15-2024 take 1 capsule by mouth once daily [place]-3 Fatty Acids 1,000 mg capsule Discontinued 1000 mg PO daily November 13, 2024 12:00am November 15, 2024 2:40pm Start: 09-18-2024 End: 10-27-2024 take 1 capsule by mouth once daily [place]-3 Fatty Acids 1,000 mg capsule Discontinued 1000 mg PO daily September 18, 2024 1:00am October 27, 2024 12:48pm Start: 09-18-2024 take 1 capsule by [facility] once daily [place]-3 Fatty Acids 1,000 mg capsule Active 1000 mg PO daily September 18, 2024 1:00am ondansetron ODT (Zofran-ODT) disintegrating tablet 4 mg (2 sources) Start: 10-05-2024 End: 10-06-2024 take 1 tablet by mouth every eight hours as needed for nausea and vomiting ondansetron ODT (Zofran-ODT) disintegrating tablet 4 mg polyethylene glycol 3350 [id number] mg powder for oral solution (2 sources) Osmotic Laxative Start: 10-05-2024 End: 10-06-2024 take 17 g by mouth every twenty-four hours as needed for constipation microencapsulated potassium chloride 20 meq extended release oral tablet (4 sources) Start: 11-09-2024 End: 11-15-2024 take 1 tablet by mouth once daily Potassium Chloride 20 mEq tablet,ER particles/crystals Discontinued 20 meq PO DAILY 3 0 November 09, 2024 12:00am November 15, 2024 2:40pm Hypokalemia Hypokalemia predniSONE 20 mg oral tablet (20 sources) Start: 09-14-2024 End: 09-18-2024 take 2 tablets by mouth once daily Prednisone 20 mg tablet Discontinued 40 mg PO DAILY 14 7 0 September 14, 2024 1:00am September 18, 2024 2:13pm Start: 06-20-2024 End: 09-13-2024 take 1 tablet by mouth twice daily Prednisone 20 mg tablet Discontinued 20 mg PO TWICE A DAY 10 0 June 20, 2024 1:00am September 13, 2024 8:37pm Start: 02-11-2024 End: 02-19-2024 predniSONE 50 mg oral tablet Dose : 50 mg = 1 tab(s), PO, Daily, # 7 tab(s), 0 Refill(s), 02/19/24 7:56:00 AM EDT Start Date: 02/11/24 Stop Date: 02/19/24 Status: Ordered Start: 01-12-2021 End: 01-16-2021 take 2 tablets by mouth once daily at mealtime predniSONE (DELTASONE) 20 mg tablet Take 2 tablets by mouth once daily for 4 days. Take daily with food. 8 tablet 01/12/2021 01/16/2021 Sennosides (Senna Laxative) 8.6 mg tablet (9 sources) Start: 09-18-2024 End: 10-05-2024 take 1 tablet by mouth once daily Sennosides (Senna Laxative) 8.6 mg tablet Discontinued 8.6 mg PO daily September 18, 2024 1:00am October 05, 2024 2:15pm Start: 09-18-2024 take 1 tablet by gregg once daily Sennosides (Senna Laxative) 8.6 mg tablet Active 8.6 mg PO daily September 18, 2024 1:00am simvastatin 20 mg oral tablet (20 sources) HMG-CoA Reductase Inhibitor Start: 11-13-2024 End: 11-15-2024 take 1 tablet by mouth at bedtime Simvastatin 20 mg tablet Discontinued 20 mg PO AT BEDTIME November 13, 2024 12:00am November 15, 2024 2:40pm Start: 10-24-2021 End: 10-31-2024 take 1 tablet by mouth at bedtime Simvastatin 20 mg tablet Discontinued 20 mg PO AT BEDTIME October 05, 2024 12:00am October 31, 2024 8:16am 50 ml sodium chloride 9 mg/m l injection (14 sources) Start: 10-09-2024 End: 10-09-2024 500 mL, IntraVENous, at 1,00 0 mL/hr, Administer over 0.5 Hours, PRN, Anti-nausea, Starting on Wed10/09/24 at 1546, Recovery (only), Indications: Anti-nausea Start: 10-05-2024 End: 10-06-2024 Start: 10-05-2024 End: 10-06-2024 take 5-40 mL intravenously every twelve hours Start: 10-05-2024 End: 10-06-2024 10 mL, IntraVENous, Every 12 hours scheduled (2 times per day), First dose on [facility] 10/05/24 at 2100 Start: 10-05-2024 End: 10-06-2024 take 100 mL intravenously every hour as needed, then take 20 mL intravenously every hour as needed 5-250 mL/hr, IntraVENous, PRN, if patient receiving piggyback infusions and maintenance fluids are not ordered OR KVO fluids to protect IV site / prevent frequent line interruptions/ long duration, Starting on [place] 10/05/24 at 2009, For piggyback infusion, administer at same rate as piggyback for a total of 25 mL. Enter 25 mL into dose field and piggyback rate into rate field of order. If piggyback is infusing at a rate less than 100 mL/hr, enter 25 mL into dose field and 100 mL/hr into rate field of order. For KVO fluids, enter rate of 20 mL/hr or less into rate field of order. Start: 10-05-2024 End: 10-06-2024 take 10 mL intravenously once as needed 10 mL, IntraVENous, PRN, line care, Starting on [facility] 10/05/24 at 2009, After every IV line use vitamin e 180 mg oral capsul e (20 sources) Start: 11-13-2024 End: 11-15-2024 Vitamin E Mixed 400 unit cap bucky Discontinued U PO DAILY November 13, 2024 12:00am November 15, 2024 2:41pm Start: 10-05-2024 End: 10-31-2024 take 1 capsule by mouth once daily Vitamin E 268 mg (400 unit) capsule Discontinued 268 mg PO DAILY October 05, 2024 12:00am October 31, 2024 8:16am Zinc Citrate, Zinc Oxide 50 mg tablet (4 sources) Start: 11-13-2024 End: 11-15-2024 take 1 mg by mouth once daily Zinc Citrate, Zinc Oxide 50 mg tablet Discontinued mg PO DAILY November 13, 2024 12:00am November 15, 2024 2:41pm Problems Active Problems Problem Classification Problem Date Documented Da te Episodic/Chronic Abdominal hernia (20 sources) Hiatal hernia; Translations: [Diaphragmatic hernia without obstruction or gangrene] 09-06-2019 Episodic Acquired foot deformities (18 sources) Bunion 03-09-2017 Episodic Comment on above: Left Acute bronchitis (18 sources) Acute bronchitis 11-24-2019 Episodic Administrative/social admission (17 sources) Patient encounter status; Translations: [Counseling, unspecified] Onset: 5 10-27-2024 Episodic Anxiety disorders (20 sources) Anxiety; Translations: [Anxiety disorder, unspecified] 09-06-2019 Chronic Asthma (20 sources) Asthma; Translations: [Asthmatic bronchitis] 03-09-2017 Chronic Bacterial infection; unspecified site (1 source) Bacterial infectious disease; Translations: [Other bacterial infections of unspecified site] 10-17-2024 Episodic Cancer of bronchus; lung (20 sources) Small cell carcinoma of lung; Translations: [Malignant neoplasm of unspecified part of left bronchus or lung] Onset: 5 10-17-2024 Chronic Cardiac dysrhythmias (1 source) Unspecified atrial fibrillation; Translations: [Unspecified atrial fibrillation] Onset: 5 Chronic Chronic kidney disease (18 sources) Chronic kidney disease stage 3A ; Translations: [Chronic kidney disease, stage 3a] Onset: 5 09-13-2024 Chronic Chronic kidney disease (2 sources) Chronic kidney disease; Translations: [Chronic kidney disease, stage 3a (HCC)] Onset: 5 Chronic obstructive pulmonary disease and bronchiectasis (20 sources) Acute exacerbation of chronic bronchitis; Translations: [Chronic obstructive pulmonary disease with (acute) exacerbation] Onset: 5 11-18-2006 Chronic Complications of surgical procedures or medical care (6 sources) Delayed healing of surgical wound; Translations: [Other complications of procedures, not elsewhere classified, initial encounter] 12-12-2024 Episodic Conditions associated with dizziness or vertigo (5 sources) Lightheadedness; Translations: [Dizziness and giddiness] 10-21-2024 Episodic Deficiency and other anemia (4 sources) Anemia; Translations: [Anemia, unspecified] 10-31-2024 Episodic Disorders of lipid metabolism (20 sources) Hyperlipidemia; Translations: [Hyperlipidemia, unspecified] 02-18-2022 Chronic E Codes: Adverse effects of medical drugs (1 source) Adverse effect of antineoplastic and immunosuppressive drugs, initial encounter; Translations: [Adverse effect of antineoplastic and immunosuppressive drugs, initial encounter] Onset: 5 Episodic E Codes: Natural/environment (20 sources) Cat bite - wound; Translations: [Bitten by cat, initial encounter] Onset: 4 Episodic Esophageal disorders (20 sources) Acid reflux; Translations: [Gastroesophageal reflux disease] 03-09-2017 Chronic Essential hypertension (20 sources) Hypertensive disorder; Translations: [Essential (primary) hypertension] Onset: 4 03-09-2017 Chronic Comment on above: CONTROLLED ON MED Fever of unknown origin (11 sources) Fever 07-06-2023 Episodic Fluid and electrolyte disorders (9 sources) Hypokalemia; Translations: [Hypokalemia] Onset: 5 11-09-2024 Episodic Fracture of upper limb (2 sources) Closed fracture of distal phalanx of left thumb; Translations: [Displaced fracture of distal phalanx of left thumb, initial encounter for closed fracture] Onset: 5 Episodic Headache; including migraine (20 sources) Migraine; Translations: [Migraine, unspecified, not intractable, without status migrainosus] 03-09-2017 Chronic Lymphadenitis (20 sources) Lymphadenopathy; Translations: [Enlarged lymph nodes, unspecified] Onset: 5 10-03-2024 Episodic Maintenance chemotherapy; radiotherapy (20 sources) Patient encounter status; Translations: [Encounter for antineoplastic chemotherapy] 10-31-2024 Chronic Malignant neoplasm without specification of site (5 sources) Malignant neoplastic disease; Translations: [Malignant (primary) neoplasm, unspecified] Onset: 5 10-24-2024 Chronic Mood disorders (20 sources) Depressive disorder; Translations: [Depression] 03-09-2017 Chronic Nausea and vomiting (6 sources) Nausea; Translations: [Nausea] Onset: 5 10-21-2024 Episodic Nutritional deficiencies (11 sources) Vitamin D deficiency 07-06-2023 Chronic Open wounds of extremities (2 sources) Laceration of left thumb; Translations: [Laceration without foreign body of left thumb without damage to nail, initial encounter] Onset: 5 Episodic Osteoarthritis (18 sources) Osteoarthritis 03-09-2017 Chronic Osteoporosis (20 sources) Osteoporosis; Translations: [Age-related osteoporosis without current pathological fracture] 03-09-2017 Chronic Other aftercare (1 source) Encounter for adjustment and management of vascular access device; Translations: [Encounter for adjustment and management of vascular access device] Onset: 5 Episodic Other and ill-defined heart disease (20 sources) Mass of thoracic structure; Translations: [Other ill-defined heart diseases] Onset: 5 10-03-2024 Chronic Comment on above: 08/2024 2.0cm x 1.9cm spherical mass Other and ill-defined heart disease (2 sources) Other ill-defined heart diseases; Translations: [Other ill-defined heart diseases] Onset: 5 Chronic Other bone disease and musculoskeletal deformities (1 source) Disorder of bone; Translations: [Other specified disorders of bone density and structure, unspecified site] Onset: 3 Episodic Other bone disease and musculoskeletal deformities (14 sources) Osteopenia 12-30-2022 Episodic Other circulatory disease (5 sources) Low blood pressure; Translations: [Hypotension, unspecified] 10-21-2024 Episodic Other connective tissue disease (18 sources) Muscle pain; Translations: [Myalgia and myositis, unspecified] 11-18-2006 Episodic Other connective tissue disease (1 source) Pain in limb; Translations: [Pain in unspecified limb] Onset: 4 Episodic Other connective tissue disease (6 sources) Pain in lower limb 02-20-2024 Episodic Other gastrointestinal disorders (4 sources) Dysphagia 09-13-2024 Episodic Other gastrointestinal disorders (2 sources) Dysphagia, unspecified; Translations: [Dysphagia, unspecified] Onset: 5 Episodic Other gastrointestinal disorders (6 sources) Constipation; Translations: [Constipation, unspecified] 12-12-2024 Episodic Other injuries and conditions due to external causes (2 sources) Traumatic AND/OR non-traumatic injury; Translations: [Other injury of unspecified body region, initial encounter] Onset: 4 Episodic Other lower respiratory disease (15 sources) Persistent cough 05-01-2022 Episodic Other lower respiratory disease (13 sources) Cough; Translations: [Cough] 07-06-2023 Episodic Other lower respiratory disease (1 source) Wheezing; Translations: [Wheezing] 01-14-2021 Episodic Other lower respiratory disease (1 source) Single lobe lung infiltrate; Translations: [Other nonspecific abnormal finding of lung field] 05-31-2024 Episodic Other lower respiratory disease (1 source) Cough; Translations: [Acute cough] 05-31-2024 Episodic Other lower respiratory disease (20 sources) Dyspnea; Translations: [Shortness of breath] 09-13-2024 Episodic Other lower respiratory disease (20 sources) Lung mass; Translations: [Other nonspecific abnormal finding of lung field] Onset: 5 09-14-2024 Episodic Other lower respiratory disease (20 sources) Hilar mass; Translations: [Other nonspecific abnormal finding of lung field] Onset: 5 10-03-2024 Episodic Comment on above: 08/2024 6.2cm x 4.7cm Other lower respiratory disease (9 sources) History of chronic obstructive airway disease; Translations: [Personal history of other diseases of the respiratory system] 09-22-2024 Episodic Other lower respiratory disease (7 sources) Dyspnea on exertion; Translations: [Other forms of dyspnea] 10-05-2024 Episodic Other lower respiratory disease (2 sources) Shortness of breath; Translations: [Shortness of breath] Onset: 5 Episodic Other nervous system disorders (18 sources) Tingling of skin 03-09-2017 Episodic Comment on above: Fingers r/t carpal t unnel Other non-traumatic joint disorders (7 sources) Joint pain; Translations: [Pain in unspecified joint] 11-18-2006 Episodic Other non-traumatic joint disorders (4 sources) Knee pain 03-31-2024 Episodic Other nutritional; endocrine; and metabolic disorders (20 sources) Overweight in adulthood with body mass index of 25 or more but less than 30 12-23-2022 Episodic Other screening for suspected conditions (not mental disorders or infectious disease) (15 sources) Viral screening status 07-03-2022 Episodic Other skin disorders (1 source) Disorder of elbow; Translations: [Localized swelling, mass and lump, left upper limb] 01-12-2023 Episodic Other upper respiratory disease (18 sources) Seasonal allergy 09-06-2019 Chronic Other upper respiratory infections (18 sources) Sinusitis 06-28-2019 Chronic Other upper respiratory infections (19 sources) Acute upper respiratory infection; Translations: [Acute upper respiratory infection, unspecified] 06-28-2019 Episodic Basia-; endo-; and myocarditis; cardiomyopathy (except that caused by tuberculosis or sexually transmitted disease) (10 sources) Pericardial effusion; Translations: [Pericardial effusion] 10-03-2024 Episodic Pleurisy; pneumothorax; pulmonary collapse (20 sources) Pleural effusion; Translations: [Pleural effusion, not elsewhere classified] Onset: 5 10-06-2024 Episodic Poisoning by other medications and drugs (4 sources) Adverse reaction to drug 02-24-2024 Episodic Residual codes; unclassified (18 sources) Chronic back pain 03-09-2017 Episodic Residual codes; unclassified (18 sources) Insomnia 11-24-2019 Episodic Residual codes; unclassified (18 sources) Needs influenza immunization 07-01-2021 Episodic Residual codes; unclassified (18 sources) Requires vaccination 04-03-2020 Episodic Residual codes; unclassified (12 sources) Dependent edema 01-06-2023 Episodic Residual codes; unclassified (7 sources) Bilateral lower limb edema; Translations: [Localized edema] 09-14-2024 Episodic Residual codes; unclassified (1 source) Localized edema; Translations: [Localized edema] Onset: 5 Episodic Respiratory failure; insufficiency; arrest (adult) (7 sources) Acute hypoxemic respiratory failure; Translations: [Acute respiratory failure with hypoxia] 10-05-2024 Episodic Rheumatoid arthritis and related disease (4 sources) Rheumatoid arthritis 03-09-2023 Chronic Screening and history of mental health and substance abuse codes (20 sources) Ex-smoker; Translations: [Personal history of nicotine dependence] Onset: 5 09-13-2024 Episodic Comment on above: smoked 40yrs 1 ppd QUIT 05/2024, SMOKED FOR 50+ YRS Secondary malignancies (19 sources) Secondary malignant neoplasm of liver; 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] 10-27-2024 Chronic Secondary malignancies (19 sources) Secondary malignant neoplasm of adrenal gland; Translations: [Secondary malignant neoplasm of unspecified adrenal gland] 10-27-2024 Chronic Secondary malignancies (2 sources) Secondary malignant neoplasm of left adrenal gland; 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] Onset: 5 Chronic Secondary malignancies (2 sources) Secondary malignant neoplasm of liver and intrahepatic bile duct; 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] Onset: 5 Chronic Skin and subcutaneous tissue infections (14 sources) Cellulitis of lower limb 12-23-2022 Episodic Spondylosis; intervertebral disc disorders; other back problems (11 sources) Degeneration of intervertebral disc; Translations: [Degeneration of intervertebral disc] 04-30-2020 Chronic Spondylosis; intervertebral disc disorders; other back problems (18 sources) Chronic neck pain 03-09-2017 Episodic Sprains and strains (20 sources) Strain of abdominal muscle; Translations: [Strain of muscle, fascia and tendon of abdomen, initial encounter] 09-06-2019 Episodic Substance-related disorders (20 sources) Tobacco dependence syndrome; Translations: [Tobacco user] 12-12-2020 Chronic Thyroid disorders (20 sources) Thyroid nodule; Translations: [Goiter] Onset: 5 03-09-2017 Chronic Unclassified (20 sources) Patient encounter status 04-03-2020 Unclassified (15 sources) Influenza vaccination declined 05-01-2022 Unclassified (7 sources) Drug therapy with explicit context 02-09-2024 Unclassified (1 source) Acute cough; Translations: [Acute cough] Onset: 4 Unclassified (1 source) Other pericardial effusion (noninflammatory); Translations: [Other pericardial effusion (noninflammatory)] Onset: 5 Unclassified (2 sources) New Patient; Translations: [New Patient] Onset: 5 Unclassified (10 sources) Small cell carcinoma of left lung; Translations: [C34.12 - Malignant neoplasm of upper lobe, left bronchus or lung] Viral infection (20 sources) Herpes simplex of female genitalia; Translations: [Genital herpes simplex] 03-09-2017 Chronic Past or Other Problems Problem Classification Problem Date Documented Da te Episodic/Chronic Allergic reactions (8 sources) Radiation-induced dermatosis; Translations: [Other skin changes due to chronic exposure to nonionizing radiation] Onset: 11-08-2008 11-08-2008 Episodic Other and unspecified benign neoplasm (7 sources) Benign neoplasm of skin of trunk; Translations: [Other benign neoplasm of skin of trunk] Onset: 11-08-2008 11-08-2008 Episodic Other lower respiratory disease (4 sources) Other nonspecific abnormal finding of lung field; Translations: [Other nonspecific abnormal finding of lung field] Onset: 09-18-2024 Episodic Other skin disorders (7 sources) Actinic keratosis; Translations: [Actinic keratosis] Onset: 11-08-2008 11-08-2008 Episodic Other skin disorders (7 sources) Disorder of skin pigmentation; Translations: [Disorder of pigmentation, unspecified] Onset: 11-08-2008 11-08-2008 Episodic Other skin disorders (7 sources) Seborrheic keratosis; Translations: [Other seborrheic keratosis] Onset: 11-08-2008 11-08-2008 Episodic Unclassified (11 sources) Contusion of left lower leg, initial encounter 05-01-2020 Unclassified (4 sources) Pleural mass 10-17-2024 Unclassified (1 source) Other pericardial effusion (noninflammatory); Translations: [Other pericardial effusion (noninflammatory)] Onset: 10-03-2024 Viral infection (7 sources) Verruca vulgaris; Translations: [Viral wart, unspecified] Onset: 11-08-2008 11-08-2008 Episodic Results Test Name Value Interpretation Reference Range Facility Absolute lymphocyte countOrd ered By: Alis Chance on 01-23-2025 Lymphocytes Auto (Unsp spec) [#/Vol] 1.12 10*3/uL 0.83-4.51 [facility] Absolute neutrophil countOrd ered By: Alis Chance on 01-23-2025 Neutrophils (Bld) [#/Vol] 4.4 10*3/uL 2.0-7.7 [facility] Anion gap in Serum or Plasma Ordered By: Alis Chance on 01-23-2025 Anion gap [Moles/Vol] 10 mmol/L 5-15 [facility] Automated lymphocyte count a s percentage of total leukocytesOrdered By: Alis Chance on 01-23-2025 Lymphocytes/100 WBC Auto (Unsp spec) 18.2 % Low 19-41 [facility] BUN/creatinine ratioOrdered By: Alis Chance on 01-23-2025 Urea nitrogen/Creatinine [Mass ratio] 9.4 mg/mg Low 10-20 [facility] Basophil percentageOrdered B y: Alis Chance on 01-23-2025 Basophils/100 WBC (Bld) 0.3 % 0-1 [facility] [place] Bilirubin, totalOrdered By: Alis Chance on 01-23-2025 Bilirubin [Mass/Vol] 0.19 mg/dL 0.00-1.30 [facility] CBC W/Diff, Automatedon 07- Anisocytosis Ql (Bld) 2+ Normal [facility] Comment on above: Performed By: #### L [id number], L100.0100 ####[facility] [id number] [place], [place], [id number] Carbon dioxide, total [Moles /volume] in Central venous bloodOrdered By: Alis Powellfouzia on 01-23-2025 CO2 [Moles/Vol] 24.2 mmol/L 21.0-32.0 [facility] Chloride assayOrdered By: Gretchen espinosa Robson on 01-23-2025 Chloride [Moles/Vol] 106 mmol/L 98-108 [facility] Comprehensive Metabolic Prof ilon 01-23-2025 Albumin [Mass/Vol] 3.6 g/dL Normal 3.4-4.8 [facility] Comment on above: Performed By: #### L [id number], L100.0100 ####[facility] [id number] [place], [address] Albumin/Globulin [Mass ratio] 1.9 {ratio} Normal 0.9-2.4 [facility] Comment on above: Performed By: #### L [id number], L100.0100 ####[facility] [id number] [place], [address] ALK PHOS 81 U/L Normal 35-104 [facility] Comment on above: Performed By: #### L [id number], L100.0100 ####[facility] [id number] [place], [address] ALT [Catalytic activity/Vol] 17 U/L Normal <=34 [facility] Comment on above: Performed By: #### L [id number], L100.0100 ####[facility] [id number] [place], [address] AST [Catalytic activity/Vol] 19 U/L Normal <=31 [facility] Comment on above: Performed By: #### L [id number], L100.0100 ####[facility] [id number] [place], [address] Bilirubin [Mass/Vol] 0.19 mg/dL Normal 0.00-1.30 [facility] Comment on above: Performed By: #### L [id number], L100.0100 ####[facility] [id number] [place], [address] BUN/CRE 9.4 RATIO Low 10-20 [facility] Comment on above: Performed By: #### L [id number], L100.0100 ####[facility] [id number] [place], [address] Calcium [Mass/Vol] 8.7 mg/dL Normal 7.6-11.0 [facility] Comment on above: Performed By: #### L [id number], L100.0100 ####[facility] [id number] [place], [address] Chloride [Moles/Vol] 106 mmol/L Normal 98-108 [facility] Comment on above: Performed By: #### L [id number], L100.0100 ####[facility] [id number] [place], [address] CO2 [Moles/Vol] 24.2 mmol/L Normal 21.0-32.0 [facility] Comment on above: Performed By: #### L [id number], L100.0100 ####[facility] [id number] [place], [address] Creatinine [Mass/Vol] 0.78 mg/dL Normal 0.70-1.20 [facility] Comment on above: Performed By: #### L [id number], L100.0100 ####[facility] [id number] [place], [address] ECRCL 59.32 ml/min Normal 50-250 [facility] Comment on above: Performed By: #### L [id number], L100.0100 ####[facility] [id number] [place], [address] GAP 10 Normal 5-15 [facility] Comment on above: Performed By: #### L [id number], L100.0100 ####[facility] [id number] [place], [address] GFR/1.73 sq M.predicted among non-blacks MDRD (S/P/Bld) [Vol rate/Area] 81 mL/min/{1.73_m2} Normal >60 [facility] Comment on above: Result Comment: mL/m in/1.73m2 CKD-EPI Creatinine Equation (2020) Performed By: #### L [id number], L100.0100 ####[facility] [id number] [place], [address] Globulin (S) [Mass/Vol] 1.9 g/dL Low 2.2-4.2 [facility] Comment on above: Performed By: #### L 500.4050, L100.0100 ####[facility] [id number] [place], [address] Glucose [Mass/Vol] 98 mg/dL Normal 70-99 [facility] Comment on above: Performed By: #### L 500.4050, L100.0100 ####[facility] [address] [place], [address] Potassium [Moles/Vol] 3.9 mmol/L Normal 3.3-5.1 [facility] Comment on above: Performed By: #### L 500.4050, L100.0100 ####[facility] [address] [place], [address] Sodium [Moles/Vol] 140 mmol/L Normal 133-145 [facility] Comment on above: Performed By: #### L 500.4050, L100.0100 ####[facility] [address] [place], [address] T PROT 5.5 g/dL Low 5.9-8.4 [facility] Comment on above: Performed By: #### L 500.4050, L100.0100 ####[facility] [address] [place], [address] Urea nitrogen [Mass/Vol] 7 mg/dL Normal 4-19 [facility] Comment on above: Performed By: #### L 500.4050, L100.0100 ####[facility] [address] [place], [address] Eosinophil percentageOrdered By: Alis Chance on 01-23-2025 Eosinophils/100 WBC (Bld) 0.0 % 0-5 [facility] Erythrocyte distribution wid th ratioOrdered By: Alis Chance on 01-23-2025 Erythrocyte distribution width (RBC) [Ratio] 23.9 % High 11.6-14.6 [facility] Erythrocyte distribution wid th standard deviationOrdered By: [facility] on 01-23-2025 Erythrocyte distribution width (RBC) [Ratio] 84.6 fl High 35.1-43.9 [facility] Glomerular filtration rate ( GFR) estimation/1.73 sq m using serum, plasma, or whole bOrdered By: Alis Chance on 01-23-2025 GFR/1.73 sq M.predicted among non-blacks MDRD (S/P/Bld) [Vol rate/Area] 81 mL/min/{1.73_m2} >60 [facility] Comment on above: mL/min/1.73m2 CKD-EP I Creatinine Equation (2020) Hematocrit Auto (Bld) [Volum e fraction]Ordered By: Alis Chance on 01-23-2025 Hematocrit (Bld) [Volume fraction] 29.8 % Low 37-47 [facility] Hemoglobin measurementOrdere d By: Alis Chance on 01-23-2025 Hemoglobin (Bld) [Mass/Vol] 9.5 g/dL Low 12.0-15.0 [facility] Immature granulocytes/100 WB C Auto (Bld)Ordered By: Alis Chance on 01-23-2025 Immature granulocytes/100 WBC (Bld) 0.800 % 0.0-0.9 [facility] Comment on above: IG% - Immature Granu locytes (promyelocytes, myelocytes and metamyelocytes) > 1% indicates that a LEFT SHIFT is Present. Laboratory - Chemistry and C hemistry - challengeOrdered By: Alis Chance on 01-23-2025 AST [Catalytic activity/Vol] 19 U/L <32 [facility] Laboratory - Hematology and Cell countsOrdered By: Alis Chance on 01-23-2025 Anisocytosis Ql (Bld) 2+ [facility] MCV (mean corpuscular volume ) determinationOrdered By: Alis Chance on 01-23-2025 MCV (RBC) [Entitic vol] 96.4 fL 81-99 [place] Mean corpuscular hemoglobin (MCH) determinationOrdered By: Alis Chance on 01-23-2025 MCH (RBC) [Entitic mass] 30.7 pg 27.0-32.0 [facility] Mean corpuscular hemoglobin concentration (MCHC) determinationOrdered By: Alis Chance on 01-23-2025 MCHC (RBC) [Mass/Vol] 31.9 g/dL Low 32-36 [facility] Mean platelet volume determi nationOrdered By: Alis Chance on 01-23-2025 Platelet mean volume (Bld) [Entitic vol] 9.0 fL 6.2-12.0 [facility] Monocyte percentageOrdered B y: Alis Chance on 01-23-2025 Monocytes/100 WBC (Bld) 9.7 % 0-10 [place] Neutrophil percentageOrdered By: Alis Chance on 01-23-2025 Neutrophils/100 WBC (Bld) 71.0 % High 47-70 [facility] Nucleated red blood cell per centageOrdered By: Alis Chance on 01-23-2025 Nucleated RBC/100 WBC (Bld) [Ratio] 0 % 0-5 [facility] Oncology Visit Reporton 07-0 Oncology Visit Report Normal [facility] Platelet countOrdered By: Gretchen Chance on 01-23-2025 Platelets (Bld) [#/Vol] 295 10*3/uL 150-450 [facility] Potassium measurement (mass/ volume)Ordered By: Alis Chance on 01-23-2025 Potassium (Unsp spec) [Mass/Vol] 3.9 mmol/L 3.3-5.1 [facility] RBC Auto (Bld) [#/Vol]Ordere d By: Alis Chance on 01-23-2025 RBC (Bld) [#/Vol] 3.09 10*6/uL Low 4.2-5.4 [facility] Serum creatinine measurement (mass/volume)Ordered By: Alis Chance on 01-23-2025 Creatinine [Mass/Vol] 0.78 mg/dL 0.70-1.20 [facility] Serum globulin measurementOr dered By: Alis Chance on 01-23-2025 Globulin (S) [Mass/Vol] 1.9 g/dL Low 2.2-4.2 [facility] Serum glucose measurement (m ass/volume)Ordered By: Alis Chance on 01-23-2025 Glucose [Mass/Vol] 98 mg/dL 70-99 [facility] Serum or plasma alanine vicente otransferase (ALT) measurementOrdered By: Alis Chance on 01-23-2025 ALT [Catalytic activity/Vol] 17 U/L <35 [facility] Serum or plasma albumin usman urement (mass/volume)Ordered By: Alis Chance on 01-23-2025 Albumin [Mass/Vol] 3.6 g/dL 3.4-4.8 [facility] Serum or plasma albumin/glob ulin mass ratioOrdered By: Alis Chance on 01-23-2025 Albumin/Globulin [Mass ratio] 1.9 {ratio} 0.9-2.4 [facility] Serum or plasma alkaline marcela sphatase measurementOrdered By: Alis Chance on 01-23-2025 ALP [Catalytic activity/Vol] 81 U/L 35-104 [facility] Serum or plasma calcium usman urement (mass/volume)Ordered By: Alis Chance on 01-23-2025 Calcium [Mass/Vol] 8.7 mg/dL 7.6-11.0 [facility] Serum or plasma urea nitroge n measurement (mass/volume)Ordered By: Alis Chance on 01-23-2025 Urea nitrogen [Mass/Vol] 7 mg/dL 4-19 [facility] Sodium levelOrdered By: Maurice Chance on 01-23-2025 Sodium [Moles/Vol] 140 mmol/L 133-145 [facility] Total proteinOrdered By: Rob Chance on 01-23-2025 Protein [Mass/Vol] 5.5 g/dL Low 5.9-8.4 [facility] White blood cell (WBC) count Ordered By: Alis Chance on 01-23-2025 WBC (Bld) [#/Vol] 6.2 10*3/uL 4.4-11.0 [facility] CT Chest, Abd, Pel w/Contras ton 01-16-2025 CT Chest, Abd, Pel w/Contrast Normal [facility] Absolute lymphocyte countOrd ered By: Alis Chance on 01-02-2025 Lymphocytes Auto (Unsp spec) [#/Vol] 1.38 10*3/uL 0.83-4.51 [facility] Absolute neutrophil countOrd ered By: Alis Chance on 01-02-2025 Neutrophils (Bld) [#/Vol] 4.2 10*3/uL 2.0-7.7 [facility] Anion gap in Serum or Plasma Ordered By: Alis Chance on 01-02-2025 Anion gap [Moles/Vol] 14 mmol/L 5-15 [facility] Automated lymphocyte count a s percentage of total leukocytesOrdered By: Alis Chance on 01-02-2025 Lymphocytes/100 WBC Auto (Unsp spec) 21.8 % 19-41 [facility] BUN/creatinine ratioOrdered By: Alis Chance on 01-02-2025 Urea nitrogen/Creatinine [Mass ratio] 6.2 mg/mg Low 10-20 [facility] Basophil percentageOrdered B y: Alis Chance on 01-02-2025 Basophils/100 WBC (Bld) 0.3 % 0-1 [place] Bilirubin, totalOrdered By: Alis Chance on 01-02-2025 Bilirubin [Mass/Vol] 0.23 mg/dL 0.00-1.30 [facility] Blood manual differential co mment interpretation (narrative result)Ordered By: Alis Chance on 01-02-2025 Manual differential comment Luiz (Bld) [Interp] SCANNED [facility] CBC W/Diff, Automatedon 12-17 Anisocytosis Ql (Bld) 2+ Normal [facility] Comment on above: Performed By: #### L 100.0100, L500.4050 ####[facility] [address] [place], [place], [id number] SMEAR COMMENT SCANNED Normal [facility] Comment on above: Performed By: #### L 100.0100, L500.4050 ####[facility] [address] [place], [place], [id number] Carbon dioxide, total [Moles /volume] in Central venous bloodOrdered By: Alis Chance on 01-02-2025 CO2 [Moles/Vol] 25.0 mmol/L 21.0-32.0 [facility] Chloride assayOrdered By: Gretchen Chance on 01-02-2025 Chloride [Moles/Vol] 103 mmol/L 98-108 [facility] Comprehensive Metabolic Prof ilon 01-02-2025 Bilirubin [Mass/Vol] 0.23 mg/dL Normal 0.00-1.30 [facility] Comment on above: Performed By: #### L 100.0100, L500.4050 ####[facility] [address] [place], [address] Eosinophil percentageOrdered By: [facility] on 01-02-2025 Eosinophils/100 WBC (Bld) 0.0 % 0-5 [facility] Erythrocyte distribution wid th ratioOrdered By: [facility] on 01-02-2025 Erythrocyte distribution width (RBC) [Ratio] 24.7 % High 11.6-14.6 [facility] Erythrocyte distribution wid th standard deviationOrdered By: [facility] on 01-02-2025 Erythrocyte distribution width (RBC) [Ratio] 81.8 fl High 35.1-43.9 [facility] Glomerular filtration rate ( GFR) estimation/1.73 sq m using serum, plasma, or whole bOrdered By: [facility] on 01-02-2025 GFR/1.73 sq M.predicted among non-blacks MDRD (S/P/Bld) [Vol rate/Area] 58 mL/min/{1.73_m2} Low >60 [facility] Comment on above: mL/min/1.73m2 CKD-EP I Creatinine Equation (2020) Hematocrit Auto (Bld) [Volum e fraction]Ordered By: [facility] on 01-02-2025 Hematocrit (Bld) [Volume fraction] 32.9 % Low 37-47 [facility] Hemoglobin measurementOrdere d By: Alis Chance on 01-02-2025 Hemoglobin (Bld) [Mass/Vol] 10.6 g/dL Low 12.0-15.0 [facility] Immature granulocytes/100 WB C Auto (Bld)Ordered By: Alis Chance on 01-02-2025 Immature granulocytes/100 WBC (Bld) 0.500 % 0.0-0.9 [facility] Comment on above: IG% - Immature Granu locytes (promyelocytes, myelocytes and metamyelocytes) > 1% indicates that a LEFT SHIFT is Present. Laboratory - Chemistry and C hemistry - challengeOrdered By: Alis Chance on 01-02-2025 AST [Catalytic activity/Vol] 21 U/L <32 [facility] Laboratory - Hematology and Cell countsOrdered By: Alis Chance on 01-02-2025 Anisocytosis Ql (Bld) 2+ [facility] MCV (mean corpuscular volume ) determinationOrdered By: Alis Chance on 01-02-2025 MCV (RBC) [Entitic vol] 90.9 fL 81-99 [place] Mean corpuscular hemoglobin (MCH) determinationOrdered By: Alis Chance on 01-02-2025 MCH (RBC) [Entitic mass] 29.3 pg 27.0-32.0 [facility] Mean corpuscular hemoglobin concentration (MCHC) determinationOrdered By: Alis Chance on 01-02-2025 MCHC (RBC) [Mass/Vol] 32.2 g/dL 32-36 [facility] Mean platelet volume determi nationOrdered By: Alis Chance on 01-02-2025 Platelet mean volume (Bld) [Entitic vol] 8.6 fL 6.2-12.0 [facility] Monocyte percentageOrdered B y: Alis Chance on 01-02-2025 Monocytes/100 WBC (Bld) 10.9 % High 0-10 [place] Neutrophil percentageOrdered By: Alis Chance on 01-02-2025 Neutrophils/100 WBC (Bld) 66.5 % 47-70 [facility] Nucleated red blood cell per centageOrdered By: Alis Chance on 01-02-2025 Nucleated RBC/100 WBC (Bld) [Ratio] 0 % 0-5 [facility] Oncology Visit Reporton 12-17 Oncology Visit Report Normal [facility] Platelet countOrdered By: Gretchen Chance on 01-02-2025 Platelets (Bld) [#/Vol] 228 10*3/uL 150-450 [facility] Potassium measurement (mass/ volume)Ordered By: Alis Chance on 01-02-2025 Potassium (Unsp spec) [Mass/Vol] 3.4 mmol/L 3.3-5.1 [facility] RBC Auto (Bld) [#/Vol]Ordere d By: Alis Chance on 01-02-2025 RBC (Bld) [#/Vol] 3.62 10*6/uL Low 4.2-5.4 [facility] Serum creatinine measurement (mass/volume)Ordered By: Alis Chance on 01-02-2025 Creatinine [Mass/Vol] 1.02 mg/dL 0.70-1.20 [facility] Serum globulin measurementOr dered By: Alis Chance on 01-02-2025 Globulin (S) [Mass/Vol] 2.4 g/dL 2.2-4.2 [place] Serum glucose measurement (m ass/volume)Ordered By: Alis Chance on 01-02-2025 Glucose [Mass/Vol] 106 mg/dL High 70-99 [facility] Serum or plasma alanine vicente otransferase (ALT) measurementOrdered By: Alis Chance on 01-02-2025 ALT [Catalytic activity/Vol] 14 U/L <35 [facility] Serum or plasma albumin usman urement (mass/volume)Ordered By: Alis Chance on 01-02-2025 Albumin [Mass/Vol] 4.2 g/dL 3.4-4.8 [facility] Serum or plasma albumin/glob ulin mass ratioOrdered By: Alis Chance on 01-02-2025 Albumin/Globulin [Mass ratio] 1.8 {ratio} 0.9-2.4 [facility] Serum or plasma alkaline marcela sphatase measurementOrdered By: Alis Chance on 01-02-2025 ALP [Catalytic activity/Vol] 79 U/L 35-104 [facility] Serum or plasma calcium usman urement (mass/volume)Ordered By: Alis Chance on 01-02-2025 Calcium [Mass/Vol] 9.6 mg/dL 7.6-11.0 [facility] Serum or plasma urea nitroge n measurement (mass/volume)Ordered By: Alis Chance on 01-02-2025 Urea nitrogen [Mass/Vol] 6 mg/dL 4-19 [facility] Sodium levelOrdered By: Maurice Chance on 01-02-2025 Sodium [Moles/Vol] 142 mmol/L 133-145 [facility] Total proteinOrdered By: Rob Powellfouzia on 01-02-2025 Protein [Mass/Vol] 6.6 g/dL 5.9-8.4 [facility] White blood cell (WBC) count Ordered By: Alis Robson on 01-02-2025 WBC (Bld) [#/Vol] 6.3 10*3/uL 4.4-11.0 [facility] Absolute lymphocyte countOrd ered By: Alis Robson on 12-12-2024 Lymphocytes Auto (Unsp spec) [#/Vol] 1.54 10*3/uL 0.83-4.51 [facility] Absolute neutrophil countOrd ered By: Alis Robson on 12-12-2024 Neutrophils (Bld) [#/Vol] 3.1 10*3/uL 2.0-7.7 [facility] Anion gap in Serum or Plasma Ordered By: Alis Robson on 12-12-2024 Anion gap [Moles/Vol] 13 mmol/L 5-15 [facility] Automated lymphocyte count a s percentage of total leukocytesOrdered By: Alis Robson on 12-12-2024 Lymphocytes/100 WBC Auto (Unsp spec) 28.5 % 19-41 [facility] BUN/creatinine ratioOrdered By: Alis Robson on 12-12-2024 Urea nitrogen/Creatinine [Mass ratio] 5.6 mg/mg Low 10-20 [facility] Basophil percentageOrdered B y: Alis Robson on 12-12-2024 Basophils/100 WBC (Bld) 0.6 % 0-1 [place] Bilirubin, totalOrdered By: Alis Robson on 12-12-2024 Bilirubin [Mass/Vol] 0.20 mg/dL 0.00-1.30 [facility] Blood polychromasia detectio n by light microscopyOrdered By: Alis Robson on 12-12-2024 Polychromasia LM Ql (Bld) 1+ [facility] CBC W/Diff, Automatedon 11-17 POLYCHROMASIA 1+ Normal [facility] Comment on above: Performed By: #### L 500.4050, L100.0100 ####[facility] [address] [place], [address] Anisocytosis Ql (Bld) 2+ Normal [facility] Comment on above: Performed By: #### L 500.4050, L100.0100 ####[facility] [address] [place], [address] PLT EST A Normal ADEQ [facility] Comment on above: Performed By: #### L 500.4050, L100.0100 ####[facility] [address] [place], [address] RED CELL MORPH NORM C+C Normal NORM C C [facility] Comment on above: Performed By: #### L 500.4050, L100.0100 ####[facility] [address] [place], [address] Carbon dioxide, total [Moles /volume] in Central venous bloodOrdered By: Alis Chance on 12-12-2024 CO2 [Moles/Vol] 24.6 mmol/L 21.0-32.0 [facility] Chloride assayOrdered By: Gretchen Chance on 12-12-2024 Chloride [Moles/Vol] 102 mmol/L 98-108 [facility] Comprehensive Metabolic Prof ilon 12-12-2024 Albumin [Mass/Vol] 4.1 g/dL Normal 3.4-4.8 [facility] Comment on above: Performed By: #### L 500.4050, L100.0100 ####[facility] [address] [place], [address] Albumin/Globulin [Mass ratio] 1.7 {ratio} Normal 0.9-2.4 [facility] Comment on above: Performed By: #### L 500.4050, L100.0100 ####[facility] [address] [place], [address] ALK PHOS 78 U/L Normal 35-104 [facility] Comment on above: Performed By: #### L 500.4050, L100.0100 ####[facility] [address] [place], [address] ALT [Catalytic activity/Vol] 15 U/L Normal <=34 [facility] Comment on above: Performed By: #### L 500.4050, L100.0100 ####[facility] [address] [place], [address] AST [Catalytic activity/Vol] 23 U/L Normal <=31 [facility] Comment on above: Performed By: #### L 500.4050, L100.0100 ####[facility] [address] [place], [address] Bilirubin [Mass/Vol] 0.20 mg/dL Normal 0.00-1.30 [facility] Comment on above: Performed By: #### L 500.4050, L100.0100 ####[facility] [address] [place], [address] BUN/CRE 5.6 RATIO Low 10-20 [facility] Comment on above: Performed By: #### L 500.4050, L100.0100 ####[facility] [address] [place], [address] Calcium [Mass/Vol] 9.3 mg/dL Normal 7.6-11.0 [facility] Comment on above: Performed By: #### L 500.4050, L100.0100 ####[facility] [address] [place], [address] Chloride [Moles/Vol] 102 mmol/L Normal 98-108 [facility] Comment on above: Performed By: #### L 500.4050, L100.0100 ####[facility] [address] [place], [address] CO2 [Moles/Vol] 24.6 mmol/L Normal 21.0-32.0 [facility] Comment on above: Performed By: #### L 500.4050, L100.0100 ####[facility] [address] [place], [address] Creatinine [Mass/Vol] 0.90 mg/dL Normal 0.70-1.20 [facility] Comment on above: Performed By: #### L 500.4050, L100.0100 ####[facility] [address] [place], [address] ECRCL 53.51 ml/min Normal 50-250 [facility] Comment on above: Performed By: #### L 500.4050, L100.0100 ####[facility] [address] [place], [address] GAP 13 Normal 5-15 [facility] Comment on above: Performed By: #### L 500.4050, L100.0100 ####[facility] [address] [place], [address] GFR/1.73 sq M.predicted among non-blacks MDRD (S/P/Bld) [Vol rate/Area] 68 mL/min/{1.73_m2} Normal >60 [facility] Comment on above: Result Comment: mL/m in/1.73m2 CKD-EPI Creatinine Equation (2020) Performed By: #### L 500.4050, L100.0100 ####[facility] [address] [place], [address] Globulin (S) [Mass/Vol] 2.5 g/dL Normal 2.2-4.2 [facility] Comment on above: Performed By: #### L 500.4050, L100.0100 ####[facility] [address] [place], [address] Glucose [Mass/Vol] 115 mg/dL High 70-99 [facility] Comment on above: Performed By: #### L 500.4050, L100.0100 ####[facility] [address] [place], [address] Potassium [Moles/Vol] 3.5 mmol/L Normal 3.3-5.1 [facility] Comment on above: Performed By: #### L 500.4050, L100.0100 ####[facility] [address] [place], [address] Sodium [Moles/Vol] 139 mmol/L Normal 133-145 [facility] Comment on above: Performed By: #### L 500.4050, L100.0100 ####[facility] [address] [place], [address] T PROT 6.6 g/dL Normal 5.9-8.4 [facility] Comment on above: Performed By: #### L 500.4050, L100.0100 ####[facility] [address] [place], [address] Urea nitrogen [Mass/Vol] 5 mg/dL Normal 4-19 [facility] Comment on above: Performed By: #### L 500.4050, L100.0100 ####[facility] [address] [place], [address] Eosinophil percentageOrdered By: Alis Chance on 12-12-2024 Eosinophils/100 WBC (Bld) 0.0 % 0-5 [facility] Erythrocyte distribution wid th ratioOrdered By: Alis Chance on 12-12-2024 Erythrocyte distribution width (RBC) [Ratio] 21.8 % High 11.6-14.6 [facility] Erythrocyte distribution wid th standard deviationOrdered By: Alis Chance on 12-12-2024 Erythrocyte distribution width (RBC) [Ratio] 66.2 fl High 35.1-43.9 [facility] Erythrocyte morphology asses smentOrdered By: Alis Chance on 12-12-2024 RBC morphology finding Nom (Bld) NORM C+C NORMAL NORM C&C [facility] Glomerular filtration rate ( GFR) estimation/1.73 sq m using serum, plasma, or whole bOrdered By: [facility] on 12-12-2024 GFR/1.73 sq M.predicted among non-blacks MDRD (S/P/Bld) [Vol rate/Area] 68 mL/min/{1.73_m2} >60 [facility] Comment on above: mL/min/1.73m2 CKD-EP I Creatinine Equation (2020) Hematocrit Auto (Bld) [Volum e fraction]Ordered By: [facility] on 12-12-2024 Hematocrit (Bld) [Volume fraction] 29.5 % Low 37-47 [facility] Hemoglobin measurementOrdere d By: [facility] on 12-12-2024 Hemoglobin (Bld) [Mass/Vol] 9.4 g/dL Low 12.0-15.0 [facility] Immature granulocytes/100 WB C Auto (Bld)Ordered By: [facility] on 12-12-2024 Immature granulocytes/100 WBC (Bld) 1.100 % High 0.0-0.9 [facility] Comment on above: IG% - Immature Granu locytes (promyelocytes, myelocytes and metamyelocytes) > 1% indicates that a LEFT SHIFT is Present. Laboratory - Chemistry and C hemistry - challengeOrdered By: [facility] Robson on 12-12-2024 AST [Catalytic activity/Vol] 23 U/L <32 [facility] Laboratory - Hematology and Cell countsOrdered By: [facility] on 12-12-2024 Anisocytosis Ql (Bld) 2+ [facility] MCV (mean corpuscular volume ) determinationOrdered By: [facility] on 12-12-2024 MCV (RBC) [Entitic vol] 87.0 fL 81-99 [place] Magnesiumon 12-12-2024 Magnesium [Mass/Vol] 1.8 mg/dL Normal 1.5-2.2 [facility] Comment on above: Performed By: #### L 501.2300, L501.5200 ####[facility] [address] [place], [place], [id number] Magnesium measurement (mass/ volume)Ordered By: Alis Chance on 12-12-2024 Magnesium (Unsp spec) [Mass/Vol] 1.8 mg/dL 1.5-2.2 [facility] Mean corpuscular hemoglobin (MCH) determinationOrdered By: Alis Chance on 12-12-2024 MCH (RBC) [Entitic mass] 27.7 pg 27.0-32.0 [facility] Mean corpuscular hemoglobin concentration (MCHC) determinationOrdered By: Alis Chance on 12-12-2024 MCHC (RBC) [Mass/Vol] 31.9 g/dL Low 32-36 [facility] Mean platelet volume determi nationOrdered By: Alis Chance on 12-12-2024 Platelet mean volume (Bld) [Entitic vol] 8.9 fL 6.2-12.0 [facility] Monocyte percentageOrdered B y: Alis Chance on 12-12-2024 Monocytes/100 WBC (Bld) 13.5 % High 0-10 [place] Neutrophil percentageOrdered By: Alis Chance on 12-12-2024 Neutrophils/100 WBC (Bld) 56.3 % 47-70 [facility] Nucleated red blood cell per centageOrdered By: [facility] on 12-12-2024 Nucleated RBC/100 WBC (Bld) [Ratio] 0 % 0-5 [facility] Oncology Visit Reporton 11-17 Oncology Visit Report Normal [facility] Phosphoruson 12-12-2024 Phosphate [Mass/Vol] 3.8 mg/dL Normal 2.7-4.5 [facility] Comment on above: Performed By: #### L 501.2300, L501.5200 ####[facility] [address] [facility] [address] [place], [place], [id number] Platelet countOrdered By: Gretchen Chance on 12-12-2024 Platelets (Bld) [#/Vol] 266 10*3/uL 150-450 [facility] Platelet estimateOrdered By: Alis Chance on 12-12-2024 Platelets LM Ql (Bld) A ADEQ [facility] Potassium measurement (mass/ volume)Ordered By: Alis Chance on 12-12-2024 Potassium (Unsp spec) [Mass/Vol] 3.5 mmol/L 3.3-5.1 [facility] RBC Auto (Bld) [#/Vol]Ordere d By: Alis Chance on 12-12-2024 RBC (Bld) [#/Vol] 3.39 10*6/uL Low 4.2-5.4 [facility] Serum creatinine measurement (mass/volume)Ordered By: Alis Chance on 12-12-2024 Creatinine [Mass/Vol] 0.90 mg/dL 0.70-1.20 [facility] Serum globulin measurementOr dered By: Alis Chance on 12-12-2024 Globulin (S) [Mass/Vol] 2.5 g/dL 2.2-4.2 [facility] [place] Serum glucose measurement (m ass/volume)Ordered By: Alis Chance on 12-12-2024 Glucose [Mass/Vol] 115 mg/dL High 70-99 [facility] Serum or plasma alanine vicente otransferase (ALT) measurementOrdered By: Alis Chance on 12-12-2024 ALT [Catalytic activity/Vol] 15 U/L <35 [facility] Serum or plasma albumin usman urement (mass/volume)Ordered By: Alis Chance on 12-12-2024 Albumin [Mass/Vol] 4.1 g/dL 3.4-4.8 [facility] Serum or plasma albumin/glob ulin mass ratioOrdered By: Alsi Chance on 12-12-2024 Albumin/Globulin [Mass ratio] 1.7 {ratio} 0.9-2.4 [facility] Serum or plasma alkaline marcela sphatase measurementOrdered By: Alsi Chance on 12-12-2024 ALP [Catalytic activity/Vol] 78 U/L 35-104 [facility] Serum or plasma calcium usman urement (mass/volume)Ordered By: Alis Chance on 12-12-2024 Calcium [Mass/Vol] 9.3 mg/dL 7.6-11.0 [facility] Serum or plasma urea nitroge n measurement (mass/volume)Ordered By: Alis Chance on 12-12-2024 Urea nitrogen [Mass/Vol] 5 mg/dL 4-19 [facility] Sodium levelOrdered By: Maurice Chance on 12-12-2024 Sodium [Moles/Vol] 139 mmol/L 133-145 [facility] Total proteinOrdered By: Rob Chance on 12-12-2024 Protein [Mass/Vol] 6.6 g/dL 5.9-8.4 [facility] White blood cell (WBC) count Ordered By: Alis Chance on 12-12-2024 WBC (Bld) [#/Vol] 5.4 10*3/uL 4.4-11.0 [facility] XR FINGER THUMB 3 VIEWS LEFT on 11-24-2024 XR FINGER THUMB 3 VIEWS LEFT ORIGINAL EXAMINATION: THREE XRAY VIEWS OF THE LEFT THUMB11/24/2024 3:26 pm COMPARISON: None HISTORY: ORDERING SYSTEM PROVIDED HISTORY: Reason for Exam: injury, FINDINGS: There is comminuted fracture of the base of the 1st distal phalanx with articular extension without significant displacement. No other fracture or dislocation is seen. No radiopaque foreign body. Severe degenerative changes of the 1st carpal metacarpal joint and other degenerative changes in the 1st and 2nd digits. IMPRESSION: Comminuted intra-articular fracture of the 1st distal phalanx. Interpreted by: Adrián Grigsby MD Preliminary Report By: Adrián Grigsby MD Electronically signed By Adrián Grigsby MD Dictated Date: 11/24/2024 3:29:31 PM Prelim Date: 11/24/2024 3:30:21 PM Sign Date: 11/24/2024 3:30:21 PM Ordering Provider: WILBUR Botello [facility] CBC W/Diff, Automatedon Absolute Lymph 1.29 X10 3/uL Normal 0.83-4.51 [facility] Comment on above: Performed By: #### L 100.0100, L500.4050 ####[facility] [address] [place], [address] Absolute Neut 2.5 X10 3/uL Normal 2.0-7.7 [facility] Comment on above: Performed By: #### L 100.0100, L500.4050 ####[facility] [address] [place], [address] Basophils/100 WBC (Bld) 0.7 % Normal 0-1 [facility] [place] Comment on above: Performed By: #### L 100.0100, L500.4050 ####[facility] [address] [place], [address] Eosinophils/100 WBC (Bld) 0.0 % Normal 0-5 [facility] Comment on above: Performed By: #### L 100.0100, L500.4050 ####[facility] [address] [place], [address] Erythrocyte distribution width (RBC) [Ratio] 18.5 % High 11.6-14.6 [facility] Comment on above: Performed By: #### L 100.0100, L500.4050 ####[facility] [address] [place], [address] Hematocrit (Bld) [Volume fraction] 31.1 % Low 37-47 [facility] Comment on above: Performed By: #### L 100.0100, L500.4050 ####[facility] [address] [place], [address] Hemoglobin (Bld) [Mass/Vol] 9.8 g/dL Low 12.0-15.0 [facility] Comment on above: Performed By: #### L 100.0100, L500.4050 ####[facility] [address] [place], [address] IG% 0.900 Normal 0.0-0.9 [facility] Comment on above: Result Comment: IG% - Immature Granulocytes (promyelocytes, myelocytes andmetamyelocytes) > 1% indicates that a LEFT SHIFT is Present. Performed By: #### L 100.0100, L500.4050 ####[facility] [address] [place], [address] Lymphocytes/100 WBC (Bld) 28.9 % Normal 19-41 [facility] Comment on above: Performed By: #### L 100.0100, L500.4050 ####[facility] [address] [place], [address] MCH (RBC) [Entitic mass] 26.5 pg Low 27.0-32.0 [facility] Comment on above: Performed By: #### L 100.0100, L500.4050 ####[facility] [address] [place], [address] MCHC (RBC) [Mass/Vol] 31.5 g/dL Low 32-36 [facility] Comment on above: Performed By: #### L 100.0100, L500.4050 ####[facility] [address] [place], [address] MCV (RBC) [Entitic vol] 84.1 fL Normal 81-99 [facility] [place] Comment on above: Performed By: #### L 100.0100, L500.4050 ####[facility] [address] [place], [address] Monocytes/100 WBC (Bld) 14.8 % High 0-10 [facility] [place] Comment on above: Performed By: #### L 100.0100, L500.4050 ####[facility] [address] [place], [address] Neutrophils/100 WBC (Bld) 54.7 % Normal 47-70 [facility] Comment on above: Performed By: #### L 100.0100, L500.4050 ####[facility] [address] [place], [address] Nucleated RBC (Bld) [#/Vol] 0 10*3/uL Normal 0-5 [facility] Comment on above: Performed By: #### L 100.0100, L500.4050 ####[facility] [address] [place], [address] Platelet mean volume (Bld) [Entitic vol] 8.6 fL Normal 6.2-12.0 [facility] Comment on above: Performed By: #### L 100.0100, L500.4050 ####[facility] [address] [place], [address] Platelets (Bld) [#/Vol] 322 10*3/uL Normal 150-450 [facility] Comment on above: Performed By: #### L 100.0100, L500.4050 ####[facility] [address] [place], [address] RBC (Bld) [#/Vol] 3.70 10*6/uL Low 4.2-5.4 [facility] Comment on above: Performed By: #### L 100.0100, L500.4050 ####[facility] [address] [place], [address] RDW SD 49.6 fl High 35.1-43.9 [facility] Comment on above: Performed By: #### L 100.0100, L500.4050 ####[facility] [address] [place], [address] WBC (Bld) [#/Vol] 4.5 10*3/uL Normal 4.4-11.0 [facility] Comment on above: Performed By: #### L 100.0100, L500.4050 ####[facility] [address] [place], [address] Comprehensive [facility]-2024 Albumin [Mass/Vol] 4.0 g/dL Normal 3.4-4.8 [facility] Comment on above: Performed By: #### L 100.0100, L500.4050 ####[facility] [address] [place], [address] Albumin/Globulin [Mass ratio] 1.5 {ratio} Normal 0.9-2.4 [facility] Comment on above: Performed By: #### L 100.0100, L500.4050 ####[facility] [address] [place], [address] ALK PHOS 70 U/L Normal 35-104 [facility] Comment on above: Performed By: #### L 100.0100, L500.4050 ####[facility] [address] [place], [address] ALT [Catalytic activity/Vol] 15 U/L Normal <=34 [facility] Comment on above: Performed By: #### L 100.0100, L500.4050 ####[facility] [address] [place], [address] AST [Catalytic activity/Vol] 23 U/L Normal <=31 [facility] Comment on above: Performed By: #### L 100.0100, L500.4050 ####[facility] [address] [place], [address] Bilirubin [Mass/Vol] 0.20 mg/dL Normal 0.00-1.30 [facility] Comment on above: Performed By: #### L 100.0100, L500.4050 ####[facility] [address] [place], [address] BUN/CRE 10.1 RATIO Normal 10-20 [facility] Comment on above: Performed By: #### L 100.0100, L500.4050 ####[facility] [address] [place], [address] Calcium [Mass/Vol] 9.5 mg/dL Normal 7.6-11.0 [facility] Comment on above: Performed By: #### L 100.0100, L500.4050 ####[facility] [address] [place], [address] Chloride [Moles/Vol] 102 mmol/L Normal 98-108 [facility] Comment on above: Performed By: #### L 100.0100, L500.4050 ####[facility] [address] [place], [address] CO2 [Moles/Vol] 25.9 mmol/L Normal 21.0-32.0 [facility] Comment on above: Performed By: #### L 100.0100, L500.4050 ####[facility] [address] [place], [address] Creatinine [Mass/Vol] 0.85 mg/dL Normal 0.70-1.20 [facility] Comment on above: Performed By: #### L 100.0100, L500.4050 ####[facility] [address] [place], [address] ECRCL 57.11 ml/min Normal 50-250 [facility] Comment on above: Performed By: #### L 100.0100, L500.4050 ####[facility] [address] [place], [address] GAP 12 Normal 5-15 [facility] Comment on above: Performed By: #### L 100.0100, L500.4050 ####[facility] [address] [place], [address] GFR/1.73 sq M.predicted among non-blacks MDRD (S/P/Bld) [Vol rate/Area] 73 mL/min/{1.73_m2} Normal >60 [facility] Comment on above: Result Comment: mL/m in/1.73m2 CKD-EPI Creatinine Equation (2020) Performed By: #### L 100.0100, L500.4050 ####[facility] [address] [place], [address] Globulin (S) [Mass/Vol] 2.6 g/dL Normal 2.2-4.2 [facility] Comment on above: Performed By: #### L 100.0100, L500.4050 ####[facility] [address] [place], [address] Glucose [Mass/Vol] 101 mg/dL High 70-99 [facility] Comment on above: Performed By: #### L 100.0100, L500.4050 ####[facility] [address] [place], [address] Potassium [Moles/Vol] 3.7 mmol/L Normal 3.3-5.1 [facility] Comment on above: Performed By: #### L 100.0100, L500.4050 ####[facility] [address] [place], [address] Sodium [Moles/Vol] 140 mmol/L Normal 133-145 [facility] Comment on above: Performed By: #### L 100.0100, L500.4050 ####[facility] [address] [place], [address] T PROT 6.6 g/dL Normal 5.9-8.4 [facility] Comment on above: Performed By: #### L 100.0100, L500.4050 ####[facility] [address] [place], [address] Urea nitrogen [Mass/Vol] 9 mg/dL Normal 4-19 [facility] Comment on above: Performed By: #### L 100.0100, L500.4050 ####[facility] [address] [place], [address] Oncology Visit Reporton Oncology Visit Report Normal [facility] Cardiology Visit Reporton Cardiology Visit Report Normal [facility] [place] CXR for Line Placementon CXR for Line Placement Normal [facility] Discharge Instructionon Discharge Instruction Normal [facility] MR/POSTOP.ANEon 11-16-2024 MR/POSTOP.ANE Normal [facility] MR/OJTDQCZA1vd 11-16-2024 MR/POSTOPAN2 Normal [facility] Operative Reporton Operative Report Normal [facility] CBC W/Diff, Automatedon 10-18 PATH REV Reviewed Normal [facility] Comment on above: Result Comment: LEUK OPENIA WITH ABSOLUTE NEUTROPENIA AND LYMPHOPENIA.NORMOCYTIC HYPOCHROMIC ANEMIA WITH MILD ANISOCYTOSIS.ADEQUATE PLATELETS.Sydnee Valencia MD 11/10/2024 AMENDED REPORT 11/10/24 1131 PATH REV previously reported as: November Performed By: #### L 100.0100, L503.6550 ####[facility] [address] [place], [address] Blood band neutrophil count as percentage of total leukocytesOrdered By: Anayeli Audelia on 11-09-2024 Band form neutrophils/100 WBC (Bld) 7 % High 0-5 [facility] Blood basophils/100 leukocyt esOrdered By: Anayeli Audelia on 11-09-2024 Basophils/100 WBC (Bld) 2 % High 0-1 [facility] [place] Blood lymphocytes/100 leukoc ytesOrdered By: Anayeli Audelia on 11-09-2024 Lymphocytes/100 WBC (Bld) 34 % 19-41 [facility] Blood monocytes/100 leukocyt esOrdered By: Anayeli Audelia on 11-09-2024 Monocytes/100 WBC (Bld) 11 % High 0-10 [facility] [place] Blood segmented neutrophils/ 100 leukocytesOrdered By: Anayeli Audelia on 11-09-2024 Segmented neutrophils/100 WBC (Bld) 46 % Low 47-70 [facility] Comprehensive Metabolic Prof ilon 11-09-2024 Albumin [Mass/Vol] 3.8 g/dL Normal 3.4-4.8 [facility] Comment on above: Performed By: #### L 503.0106, L500.4050, L503.6030 ####[facility] [address] [place], [address] Albumin/Globulin [Mass ratio] 1.4 {ratio} Normal 0.9-2.4 [facility] Comment on above: Performed By: #### L 503.0106, L500.4050, L503.6030 ####[facility] [address] [place], [address] ALK PHOS 82 U/L Normal 35-104 [facility] Comment on above: Performed By: #### L 503.0106, L500.4050, L503.6030 ####[facility] [address] [place], [address] ALT [Catalytic activity/Vol] 19 U/L Normal <=34 [facility] Comment on above: Performed By: #### L 503.0106, L500.4050, L503.6030 ####[facility] [address] [place], [address] AST [Catalytic activity/Vol] 17 U/L Normal <=31 [facility] Comment on above: Performed By: #### L 503.0106, L500.4050, L503.6030 ####[facility] [address] [place], [address] Bilirubin [Mass/Vol] 0.17 mg/dL Normal 0.00-1.30 [facility] Comment on above: Performed By: #### L 503.0106, L500.4050, L503.6030 ####[facility] [address] [place], [address] BUN/CRE 10.6 RATIO Normal 10-20 [facility] Comment on above: Performed By: #### L 503.0106, L500.4050, L503.6030 ####[facility] [address] [place], [address] Calcium [Mass/Vol] 9.3 mg/dL Normal 7.6-11.0 [facility] Comment on above: Performed By: #### L 503.0106, L500.4050, L503.6030 ####[facility] [address] [place], [address] Chloride [Moles/Vol] 101 mmol/L Normal 98-108 [facility] Comment on above: Performed By: #### L 503.0106, L500.4050, L503.6030 ####[facility] [address] [place], [address] CO2 [Moles/Vol] 27.5 mmol/L Normal 21.0-32.0 [facility] Comment on above: Performed By: #### L 503.0106, L500.4050, L503.6030 ####[facility] [address] [place], [address] Creatinine [Mass/Vol] 0.75 mg/dL Normal 0.70-1.20 [facility] Comment on above: Performed By: #### L 503.0106, L500.4050, L503.6030 ####[facility] [address] [place], [address] ECRCL 62.94 ml/min Normal 50-250 [facility] Comment on above: Performed By: #### L 503.0106, L500.4050, L503.6030 ####[facility] [address] [place], [address] GAP 13 Normal 5-15 [facility] Comment on above: Performed By: #### L 503.0106, L500.4050, L503.6030 ####[facility] [address] [place], [address] GFR/1.73 sq M.predicted among non-blacks MDRD (S/P/Bld) [Vol rate/Area] 85 mL/min/{1.73_m2} Normal >60 [facility] Comment on above: Result Comment: mL/m in/1.73m2 CKD-EPI Creatinine Equation (2020) Performed By: #### L 503.0106, L500.4050, L503.6030 ####[facility] [address] [place], [address] Globulin (S) [Mass/Vol] 2.7 g/dL Normal 2.2-4.2 [facility] Comment on above: Performed By: #### L 503.0106, L500.4050, L503.6030 ####[facility] [address] [place], [address] Glucose [Mass/Vol] 110 mg/dL High 70-99 [facility] Comment on above: Performed By: #### L 503.0106, L500.4050, L503.6030 ####[facility] [address] [place], [address] Potassium [Moles/Vol] 3.1 mmol/L Low 3.3-5.1 [facility] Comment on above: Performed By: #### L 503.0106, L500.4050, L503.6030 ####[facility] [address] [place], [address] Sodium [Moles/Vol] 141 mmol/L Normal 133-145 [facility] Comment on above: Performed By: #### L 503.0106, L500.4050, L503.6030 ####[facility] [address] [place], [address] T PROT 6.5 g/dL Normal 5.9-8.4 [facility] Comment on above: Performed By: #### L 503.0106, L500.4050, L503.6030 ####[facility] [address] [place], [address] Urea nitrogen [Mass/Vol] 8 mg/dL Normal 4-19 [facility] Comment on above: Performed By: #### L 503.0106, L500.4050, L503.6030 ####[facility] [address] [place], [address] Ferritinon 11-09-2024 Ferritin [Mass/Vol] 243 ng/mL Normal 22-378 [facility] Comment on above: Performed By: #### L 100.0100, L503.6550 ####[facility] [address] [place], [address] Iron measurement (mass/mass) Ordered By: Anayeli Win on 11-09-2024 Iron (Unsp spec) [Mass/Mass] 88 ug/dL 50-170 [facility] Iron+Iron Binding Capacityon 11-09-2024 Iron [Mass/Vol] 88 ug/dL Normal 50-170 [facility] Comment on above: Performed By: #### L 503.0106, L500.4050, L503.6030 ####[facility] [address] [place], [address] IRON SATURATION 31.0 Normal 13-59 [facility] Comment on above: Performed By: #### L 503.0106, L500.4050, L503.6030 ####[facility] [address] [place], [address] TIBC 281 ug/dL Normal 250-450 [facility] Comment on above: Performed By: #### L 503.0106, L500.4050, L503.6030 ####[facility] [address] [place], [address] UIBC 193 ug/dL Low 228-428 [facility] Comment on above: Performed By: #### L 503.0106, L500.4050, L503.6030 ####[facility] [address] [place], [address] No Panel InformationOrdered By: Anayeli Win on 11-09-2024 Unsaturated Iron Binding Capacity 193 ug/dL Low 228-428 [facility] Oncology Visit Reporton 10-18 Oncology Visit Report Normal [facility] Review by pathologistOrdered By: Anayeli Win on 11-09-2024 Pathologist review Luiz (Unsp spec) [Interp] Reviewed [facility] Comment on above: Previous reported re sult: Kathrin meadows Edited by: ADAL on 11/10/24:1131LEUKOPENIA WITH ABSOLUTE NEUTROPENIA AND LYMPHOPENIA.NORMOCYTIC HYPOCHROMIC ANEMIA WITH MILD ANISOCYTOSIS.ADEQUATE PLATELETS.Sydnee Valencia MD 11/10/2024 AMENDED REPORT 11/10/24 1131 PATH REV previously reported as: Kathrin meadows Serum or plasma ferritin fidel surement (mass/volume)Ordered By: Anayeli Win on 11-09-2024 Ferritin [Mass/Vol] 243 ng/mL 22-378 [facility] Serum or plasma iron saturat ion measurement (mass fraction)Ordered By: Anayeli Win on 11-09-2024 Iron saturation [Mass fraction] 31.0 % 13-59 [facility] Total cell countOrdered By: Anayeli Win on 11-09-2024 Cells counted Molgen (Bld/Tiss) [#] 100 MANUAL DIFF [facility] Vitamin B12on 11-09-2024 Cobalamin (Vitamin B12) [Mass/Vol] 2391 pg/mL High 180-914 [facility] Comment on above: Performed By: #### L 503.0106, L500.4050, L503.6030 ####[facility] [address] 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 She had her second chemo today, and weight was up 7 lbs from yesterday, and had increase edema in her feet. Daughter states she went home from treatment and took 12.5 mg of HCTZ at 3 pm, and is keeping her feet elevated. She has Chemo again tomorrow at 9:30 am , and goes back on Wednesday for injection. Ideally, daughter would like to establish with a senior software test engineer in [place]. Patient is monitoring her BP at home, and will call her daughter, ( who is at work now) if BP drops. She will contactthe patient relations coordinator to see if she can arrange Cardiology to see her tomorrow while at the infusion center. She will keep us updated. Normal [facility] 36 Daughter called back she spoke to oncologist and oncologist is more comfortable if we deal with this. Normal [place] [address] I spoke with daughter pt having increase BOWMAN/ up 7 #s/b/l lower extremity edema after having 2 chemo treatments. Daughter states chemo staff said to call senior software test engineer. She is not sure if oncologist or his office is aware. I asked her to check with them first regarding the symptoms she is having. The care will be directed by them. She will call back after she makes sure the oncologist is aware. Normal [facility] 36 Daughter calling pt is new to chemo having second treatment today. She has gained 7# since yesterday. Chemo staff wanted pt to call senior software test engineer pt has edema in ankles. Normal [facility] CBC W/Diff, Automatedon 10-17 Absolute Lymph 1.00 X10 3/uL Normal 0.83-4.51 [facility] Comment on above: Performed By: #### L 500.4050, L100.0100 ####[facility] [address], [address] Absolute Neut 2.9 X10 3/uL Normal 2.0-7.7 [facility] Comment on above: Performed By: #### L 500.4050, L100.0100 ####[facility] [address], [address] Basophils/100 WBC (Bld) 0.5 % Normal 0-1 [facility] [place] Comment on above: Performed By: #### L 500.4050, L100.0100 ####[facility] [address] [place], [address] Eosinophils/100 WBC (Bld) 0.7 % Normal 0-5 [facility] Comment on above: Performed By: #### L 500.4050, L100.0100 ####[facility] [address] [place], [address] Erythrocyte distribution width (RBC) [Ratio] 16.6 % High 11.6-14.6 [facility] Comment on above: Performed By: #### L 500.4050, L100.0100 ####[facility] [facility] [address] [place], [address] Hematocrit (Bld) [Volume fraction] 32.5 % Low 37-47 [facility] Comment on above: Performed By: #### L 500.4050, L100.0100 ####[facility] [address] [place], [address] Hemoglobin (Bld) [Mass/Vol] 10.2 g/dL Low 12.0-15.0 [facility] Comment on above: Performed By: #### L 500.4050, L100.0100 ####[facility] [address] [place], [address] IG% 0.200 Normal 0.0-0.9 [facility] Comment on above: Result Comment: IG% - Immature Granulocytes (promyelocytes, myelocytes andmetamyelocytes) > 1% indicates that a LEFT SHIFT is Present. Performed By: #### L 500.4050, L100.0100 ####[facility] [address] [place], [address] Lymphocytes/100 WBC (Bld) 22.6 % Normal 19-41 [facility] Comment on above: Performed By: #### L 500.4050, L100.0100 ####[facility] [address] [place], [address] MCH (RBC) [Entitic mass] 26.4 pg Low 27.0-32.0 [facility] Comment on above: Performed By: #### L 500.4050, L100.0100 ####[facility] [address] [place], [address] MCHC (RBC) [Mass/Vol] 31.4 g/dL Low 32-36 [facility] Comment on above: Performed By: #### L 500.4050, L100.0100 ####[facility] [address] [place], [address] MCV (RBC) [Entitic vol] 84.0 fL Normal 81-99 [facility] Comment on above: Performed By: #### L 500.4050, L100.0100 ####[facility] [address] [place], [address] Monocytes/100 WBC (Bld) 11.7 % High 0-10 [facility] Comment on above: Performed By: #### L 500.4050, L100.0100 ####[facility] [address] [place], [address] Neutrophils/100 WBC (Bld) 64.3 % Normal 47-70 [facility] Comment on above: Performed By: #### L 500.4050, L100.0100 ####[facility] [address] [place], [address] Nucleated RBC (Bld) [#/Vol] 0 10*3/uL Normal 0-5 [facility] Comment on above: Performed By: #### L 500.4050, L100.0100 ####[facility] [address] [place], [address] Platelet mean volume (Bld) [Entitic vol] 8.5 fL Normal 6.2-12.0 [facility] Comment on above: Performed By: #### L 500.4050, L100.0100 ####[facility] [address] [place], [address] Platelets (Bld) [#/Vol] 284 10*3/uL Normal 150-450 [facility] Comment on above: Performed By: #### L 500.4050, L100.0100 ####[facility] [address] [place], [address] RBC (Bld) [#/Vol] 3.87 10*6/uL Low 4.2-5.4 [facility] Comment on above: Performed By: #### L 500.4050, L100.0100 ####[facility] [address] [place], [address] RDW SD 50.7 fl High 35.1-43.9 [facility] Comment on above: Performed By: #### L 500.4050, L100.0100 ####[facility] [address] [place], [address] WBC (Bld) [#/Vol] 4.4 10*3/uL Normal 4.4-11.0 [facility] Comment on above: Performed By: #### L 500.4050, L100.0100 ####[facility] [address] [place], [address] Absolute Neut Normal 2.0-7.7 [facility] Comment on above: Result Comment: @DUP LICATE ORDER Performed By: #### L 500.4050, L100.0100 ####[facility] [address] [place], [address] HCT Normal 37-47 [facility] Comment on above: Result Comment: @DUP LICATE ORDER Performed By: #### L 500.4050, L100.0100 ####[facility] [address] [place], [address] HGB Normal 12.0-15.0 [facility] Comment on above: Result Comment: @DUP LICATE ORDER Performed By: #### L 500.4050, L100.0100 ####[facility] [address] [place], [address] MCH Normal 27.0-32.0 [facility] Comment on above: Result Comment: @DUP LICATE ORDER Performed By: #### L 500.4050, L100.0100 ####[facility] [address] [place], [address] MCHC Normal 32-36 [facility] Comment on above: Result Comment: @DUP LICATE ORDER Performed By: #### L 500.4050, L100.0100 ####[facility] [address] [place], [address] MCV Normal 81-99 [facility] Comment on above: Result Comment: @DUP LICATE ORDER Performed By: #### L 500.4050, L100.0100 ####[facility] [address] [place], [address] NEUT% Normal 47-70 [facility] Comment on above: Result Comment: @DUP LICATE ORDER Performed By: #### L 500.4050, L100.0100 ####[facility] [address] [place], [address] PLT Normal 150-450 [facility] Comment on above: Result Comment: @DUP LICATE ORDER Performed By: #### L 500.4050, L100.0100 ####[facility] [address] [place], [address] RBC Normal 4.2-5.4 [facility] Comment on above: Result Comment: @DUP LICATE ORDER Performed By: #### L 500.4050, L100.0100 ####[facility] [address] [place], [address] RDW CV Normal 11.6-14.6 [facility] Comment on above: Result Comment: @DUP LICATE ORDER Performed By: #### L 500.4050, L100.0100 ####[facility] [address] [place], [address] RDW SD Normal 35.1-43.9 [facility] Comment on above: Result Comment: @DUP LICATE ORDER Performed By: #### L 500.4050, L100.0100 ####[facility] [address] [place], [address] WBC Normal 4.4-11.0 [facility] Comment on above: Result Comment: @DUP LICATE ORDER Performed By: #### L 500.4050, L100.0100 ####[facility] [address] [place], [address] Comprehensive Metabolic Prof ilon 10-31-2024 Albumin [Mass/Vol] 3.6 g/dL Normal 3.4-4.8 [facility] Comment on above: Performed By: #### L 500.4050, L100.0100 ####[facility] [address] [place], [address] Albumin/Globulin [Mass ratio] 1.3 {ratio} Normal 0.9-2.4 [facility] Comment on above: Performed By: #### L 500.4050, L100.0100 ####[facility] [address] [place], [address] ALK PHOS 63 U/L Normal 35-104 [facility] Comment on above: Performed By: #### L 500.4050, L100.0100 ####[facility] [address] [place], [address] ALT [Catalytic activity/Vol] 11 U/L Normal <=34 [facility] Comment on above: Performed By: #### L 500.4050, L100.0100 ####[facility] [address] [place], [address] AST [Catalytic activity/Vol] 17 U/L Normal <=31 [facility] Comment on above: Performed By: #### L 500.4050, L100.0100 ####[facility] [address] [place], [address] Bilirubin [Mass/Vol] 0.17 mg/dL Normal 0.00-1.30 [facility] Comment on above: Performed By: #### L 500.4050, L100.0100 ####[facility] [address] [place], [address] BUN/CRE 19.1 RATIO Normal 10-20 [facility] Comment on above: Performed By: #### L 500.4050, L100.0100 ####[facility] [address] [place], [address] Calcium [Mass/Vol] 9.2 mg/dL Normal 7.6-11.0 [facility] Comment on above: Performed By: #### L 500.4050, L100.0100 ####[facility] [address] [place], [address] Chloride [Moles/Vol] 107 mmol/L Normal 98-108 [facility] Comment on above: Performed By: #### L 500.4050, L100.0100 ####[facility] [address] [place], [address] CO2 [Moles/Vol] 26.3 mmol/L Normal 21.0-32.0 [facility] Comment on above: Performed By: #### L 500.4050, L100.0100 ####[facility] [address] [place], [address] Creatinine [Mass/Vol] 0.71 mg/dL Normal 0.70-1.20 [facility] Comment on above: Performed By: #### L 500.4050, L100.0100 ####[facility] [address] [place], [address] ECRCL 61.80 ml/min Normal 50-250 [facility] Comment on above: Performed By: #### L 500.4050, L100.0100 ####[facility] [address] [place], [address] GAP 11 Normal 5-15 [facility] Comment on above: Performed By: #### L 500.4050, L100.0100 ####[facility] [address] [place], [address] GFR/1.73 sq M.predicted among non-blacks MDRD (S/P/Bld) [Vol rate/Area] 91 mL/min/{1.73_m2} Normal >60 [facility] Comment on above: Result Comment: mL/m in/1.73m2 CKD-EPI Creatinine Equation (2020) Performed By: #### L 500.4050, L100.0100 ####[facility] [address] [place], [address] Globulin (S) [Mass/Vol] 2.9 g/dL Normal 2.2-4.2 [facility] Comment on above: Performed By: #### L 500.4050, L100.0100 ####[facility] [address] [place], [address] Glucose [Mass/Vol] 106 mg/dL High 70-99 [facility] Comment on above: Performed By: #### L 500.4050, L100.0100 ####[facility] [address] [place], [address] Potassium [Moles/Vol] 3.7 mmol/L Normal 3.3-5.1 [facility] Comment on above: Performed By: #### L 500.4050, L100.0100 ####[facility] [address] [place], [address] Sodium [Moles/Vol] 144 mmol/L Normal 133-145 [facility] Comment on above: Performed By: #### L 500.4050, L100.0100 ####[facility] [address] [place], [address] T PROT 6.5 g/dL Normal 5.9-8.4 [facility] Comment on above: Performed By: #### L 500.4050, L100.0100 ####[facility] [address] [place], [address] Urea nitrogen [Mass/Vol] 14 mg/dL Normal 4-19 [facility] Comment on above: Performed By: #### L 500.4050, L100.0100 ####[facility] [address] [place], [address] ALB Normal 3.4-4.8 [facility] Comment on above: Result Comment: @DUP LICATE ORDER Performed By: #### L 500.4050, L100.0100 ####[facility] [address] [place], [address] ALK PHOS Normal 35-104 [facility] Comment on above: Result Comment: @DUP LICATE ORDER Performed By: #### L 500.4050, L100.0100 ####[facility] [address] [place], [address] ALT Normal <=34 [facility] Comment on above: Result Comment: @DUP LICATE ORDER Performed By: #### L 500.4050, L100.0100 ####[facility] [address] [place], [address] AST Normal <=31 [facility] Comment on above: Result Comment: @DUP LICATE ORDER Performed By: #### L 500.4050, L100.0100 ####[facility] [address] [place], [address] BUN Normal 4-19 [facility] Comment on above: Result Comment: @DUP LICATE ORDER Performed By: #### L 500.4050, L100.0100 ####[facility] [address] [place], [address] BUN/CRE Normal 10-20 [facility] Comment on above: Result Comment: @DUP LICATE ORDER Performed By: #### L 500.4050, L100.0100 ####[facility] [address] [place], [address] Calcium Normal 7.6-11.0 [facility] Comment on above: Result Comment: @DUP LICATE ORDER Performed By: #### L 500.4050, L100.0100 ####[facility] [address] [place], [address] CL Normal 98-108 [facility] Comment on above: Result Comment: @DUP LICATE ORDER Performed By: #### L 500.4050, L100.0100 ####[facility] [address] [place], [address] CO2 Normal 21.0-32.0 [facility] Comment on above: Result Comment: @DUP LICATE ORDER Performed By: #### L 500.4050, L100.0100 ####[facility] [address] [place], [address] CREAT,SERUM Normal 0.70-1.20 [facility] Comment on above: Result Comment: @DUP LICATE ORDER Performed By: #### L 500.4050, L100.0100 ####[facility] [address] [place], [address] eGFR Normal >60 [facility] Comment on above: Result Comment: @DUP LICATE ORDER Performed By: #### L 500.4050, L100.0100 ####[facility] [address] [place], [address] GAP Normal 5-15 [facility] Comment on above: Result Comment: @DUP LICATE ORDER Performed By: #### L 500.4050, L100.0100 ####[facility] [address] [place], [address] GLU Normal 70-99 [facility] Comment on above: Result Comment: @DUP LICATE ORDER Performed By: #### L 500.4050, L100.0100 ####[facility] [address] [place], [address] Potassium Normal 3.3-5.1 [facility] Comment on above: Result Comment: @DUP LICATE ORDER Performed By: #### L 500.4050, L100.0100 ####[facility] [address] [place], [address] T BILI Normal 0.00-1.30 [facility] Comment on above: Result Comment: @DUP LICATE ORDER Performed By: #### L 500.4050, L100.0100 ####[facility] [address] [place], [address] T PROT Normal 5.9-8.4 [facility] Comment on above: Result Comment: @DUP LICATE ORDER Performed By: #### L 500.4050, L100.0100 ####[facility] [address] [place], [address] Comprehensive Metabolic Profil Normal 133-145 [facility] Comment on above: Result Comment: @DUP LICATE ORDER Performed By: #### L 500.4050, L100.0100 ####[facility] [address] [place], [address] Oncology Visit Reporton 10-17 Oncology Visit Report Normal [facility] 36on 10-27-2024 36 Reviewed clinisync and confirmed that patient ws able to establish with [facility] on 10/26/24. Beginning treatment 10/31/24. Normal [facility] Surgery Visit Reporton 10-27 Surgery Visit Report Normal [facility] 36on 10-26-2024 36 Pt's Daughter, Diaz requesting POC device for he Mother. Explains her Mother has multiple Dr's appointments. Just today, her mother used 3 tanks. While working on TE, had contacted Pt's Daughter for more information , Diaz explained, She just talked to [employer] and decided to stick with tanks. Normal [facility] Office Visiton 10-26-2024 Follow-up visit [id number] Karina Fernando 1950 F Date Provider Department Center 10/26/2024 [facility]SELYN [facility] END None Family History Problem Relation Age of Onset Cancer Mother Cancer Father No Known Problems Sister No Known Problems Brother Heart disease Brother Family Status - Relation Status Age at Mother Father Sister Alive Brother Alive Brother Alive Level of Service:17812 [place] OFFICE/OUTPATIENT NEW HIGH MDM 60 MINUTES Reason for Visit and Comments: New Patient [542] Thyroid Problem [110] - Thyroid nodule Normal [facility] Oncology Visit Reporton 10-17 Oncology Visit Report Normal [facility] Progress Noteon 10-26-2024 Progress Note . ENDOCRINOLOGY [address] [facility] [address] Dept: [phone] Dept Visit type: New patient Reason for Visit: New Patient and Thyroid Problem (Thyroid nodule) Assessment and Plan 1. Multinodular goiter (nontoxic) 2. Stage 3a chronic kidney disease (HCC) No follow-ups on file. Discussed with patient Nl thyroid function Nl thyroid structure Interpretation of tft's Mng and manifestations Would monitor thyroid function per protocol for immunotherapy to receive for small cell cancer Do not suspect difficulty swallowing based on thyroid pathology given area that point highlights and size of thyroid on US See back in 6 mos Pmd and oncology monitoring renal function Subjective Thyroid Problem Patient reports no cold intolerance, fatigue, heat intolerance, palpitations or tremors. 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 HENT: Positive for trouble swallowing. Negative for hearing loss, tinnitus and voice change. Respiratory: Positive for shortness of breath. Negative for cough and wheezing. Cardiovascular: Negative for chest pain and palpitations. Gastrointestinal: Negative for nausea and vomiting. Endocrine: Negative for cold intolerance and heat intolerance. Genitourinary: Negative for dysuria and hematuria. Skin: Negative for rash. Neurological: Negative for tremors and headaches. Psychiatric/Behavior al: Positive for sleep disturbance. Allergies Allergen Reactions Alendronate Muscle ache, Swelling / lump finding Cefaclor Hives Erythromycin Nausea And Vomiting Erythromycin Base Nausea Only Famciclovir Hives Gabapentin Unknown Morphine Nausea And Vomiting Penicillins Hives Tramadol Hives, Itching and Nausea And Vomiting Hydrochlorothiazide- Triamterene Rash Current Outpatient Medications: albuterol (Ventolin HFA) 108 (90 Base) MCG/ACT inhaler, Inhale 2 puffs every 4 hours as needed for wheezing or shortness of breath., Disp: 8 g, Rfl: 11 budesonide-formotero l (Symbicort) 80-4.5 MCG/ACT inhaler, Inhale 2 puffs 2 times daily., Disp: 1 each, Rfl: 3 busPIRone (Buspar) 10 MG tablet, Take 10 mg by mouth 3 times daily as needed., Disp: , Rfl: cholecalciferol (Vitamin D-3) 25 MCG (1000 UT) capsule, Take 1,000 Units by mouth daily., Disp: , Rfl: loratadine (Claritin) 5 MG chewable tablet, Chew 5 mg daily., Disp: , Rfl: Melatonin 2.5 MG chewable tablet, Chew Daily as needed., Disp: , Rfl: Multiple Vitamin (multivitamin) capsule, Take 1 capsule by mouth daily., Disp: , Rfl: [place]-3 Fatty Acids (OMEGA 3 500 PO), Take by mouth daily., Disp: , Rfl: oxyCODONE-acetaminop hen (Percocet) 5-325 MG tablet, Take 1 tablet by mouth every 6 hours as needed for severe pain (7-10) (small cell lung cancer with mets) for up to 7 days., Disp: 28 tablet, Rfl: 0 traZODone (Desyrel) 100 MG tablet, Take 100 mg by mouth Nightly., Disp: , Rfl: valACYclovir (Valtrex) 500 MG tablet, Take by mouth daily., Disp: , Rfl: Vitamin E 268 MG (400 UNIT) capsule, Take by mouth daily., Disp: , Rfl: ALPRAZolam (Xanax) 0.5 MG tablet, Take 1 tablet (0.5 mg) by mouth 1 time for 1 dose. 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 Spondylolisthesis, lumbar region Social History Tobacco Use Smoking status: Former Average packs/day: 1 pack/day for 51.9 years (51.9 ttl pk-yrs) Types: Cigarettes Start date: 1972 Passive exposure: Past Smokeless tobacco: Never Substance Use Topics Alcohol use: Not Currently Past Surgical History: Procedure Laterality Date APPENDECTOMY BLEPHAROPLASTY Bilateral BUNIONECTOMY Left CARPAL TUNNEL RELEASE Right HC ENDOBRONCHIAL ULTRASOUND EBUS (HISTORICAL) 10/09/2024 LUMBAR FUSION TOTAL KNEE ARTHROPLASTY Bilateral VAGINAL DELIVERY 1970 VAGINAL DELIVERY 1972 Family History Problem Relation Name Age of Onset Cancer Mother (more content not included)... Normal [facility] Oncology Visit Reporton Oncology Visit Report Normal [facility] 36on 10-24-2024 36 Case reviewed - advanced small cell lung cancer *The patient's OARRS report was obtained and reviewed.* Normal [facility] [address] Fortune, pt needs a prescription sent for percocet 5/325mg, 1 tab Q6 hours PRN. Normal [facility] 36 Received call from Alee, Pipe Welder at [facility]. Per Alee, they are aware patient now has oncology appt in [place], but they are tryoing to have her seen at [place] sooner. Right faxed MRI brain and PET reports to providers at [place] in case she returns to them for oncology care. Also requested images be pushed to provider. Normal [facility] Progress Noteon 10-24-2024 Progress Note OARRS reviewed Normal [facility] Progress Note [facility] CARDIOV[facility]ORACIC SURGERY [address] [facility] [address] Dept: [phone] Dept Loc: [phone] Patient was identified and seen today via Telehealth by agreement and consent. I used the following Telehealth technology: Audio capability only. Total length of call 16 minutes. The patient was offered and advised video for a more comprehensive evaluation, but the patient declined or was unable to use video. Patient location: Patient Location: Home. This patient encounter is appropriate and reasonable under the circumstances: too sick to leave home . The patient has been advised of the potential risks and limitations of this mode of treatment (including but not limited to the absence of in-person examination) and has agreed to be treated in a remote fashion in spite of them. Any and all of the patient's/patient's family's questions on this issue have been answered and I have made no promises or guarantees to the patient. The patient has also been advised to contact this office for worsening conditions or problems, and seek emergency medical treatment and/or call 911 if the patient deems either necessary. The patient stated that they are currently in the state [facility]. If the patient is a minor, permission has been obtained by the parent or guardian for the patient to receive medical care at this visit. Visit type: Established Reason for Visit: Widespread small cell lung cancer with involvement of the liver, adrenal gland, right atrium of the heart, and left hilum. 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 She has obstruction of the left lung. She requires an immediate oncology assessment. We will refer to our oncology colleagues for urgent evaluation. She also requires a refill on Percocet for pain control. I have discussed with Dr Worrell, who will expedite an office consultation. There is no need for surgical intervention at this time. History of Present Illness Karina Fernando is a 73 y.o. female known to Dr. Fortune for left hilar mass, involvement of the AP window, a pleural-based lesion on the left lung, and a small right atrial mass of uncertain etiology. Per note, pt had presented to [place] ED in August 2023 for dyspnea. CTA chest showed left hilar mass, left upper lobe pleural-based mass and large prevascular lymph node concerning for malignancy. Also showed a moderate pericardial effusion and large hiatal hernia. Pt was treated for a sinus infection, given Doxycycline and steroids, and discharged. Pt was referred to Oncology and was evaluated on 09/18/[address] guided biopsy, PET scan, and MRI brain. PCP ordered a thyroid ultrasound which was completed on 09/19/24 and demonstrated thyromegaly and multinodular goiter. PCP also ordered an echocardiogram which was completed on 09/25/24 and demonstrated a 2.0 cm x 1.9 cm spherical mass on the right side of the interatrial septum, a small pericardial effusion with RA collapse. Dr. Fortune Note 10/03/24 Assessment and plan This 73-year-old patient with standing COPD was found to have a left hilar mass, involvement of the AP window, and a pleural-based lesion on the left lung that appears smooth. This is concerning for malignancy. I would recommended EBUS/ENB to evaluate the left hilar adenopathy. A PET scan will be required for further staging. An MRI of the brain will be required for staging purposes. Further recommendations will follow once this testing has been completed. We will review the echocardiogram to further evaluate the right atrial mass. At the present time, this is likely unrelated to this is but shows areas that may be consistent with malignancy. Patient was hospitalized at [facility] on 10/05/24 for shortness of breath, then transferred to [facility] for ongoing care. An US guided thoracentesis was ordered, but pleural effusion was too small for drainage. Patient underwent EBUS/ENB on 10/09/24, showing concern for right endobronchial lesion, biopsy negative for malignancy. Lymph nodes 11L, 7 and BAL positive for small cell carcinoma. Lymph nodes 4R and 11R negative for malignancy. Sputum culture with stenotrophomonas, pt was treated with 7-day course of Levaquin. Patient was presented at [facility] on 10/17/24 with recommendation for med/onc eval, patient chose to follow with her oncologist Dr. Chance in [place]. MRI brain on 10/17/24 was normal. PET scan on 10/20/24 showed large, intensely FDG avid mass centered within the left pulmonary hilum, a second FDG avid mass within the left suprahilar region which extends into the aorticopulmonary window, intense FDG uptake within the right atrium, intense FDG accumulation within the right hepatic lobe and left adrenal gland, small focus of intense FDG accumulation within the right thyroid lobe, and asymmetric increased FD (more content not included)... Normal [facility] 12 Lead EKGon 10-21-2024 12 Lead EKG Normal [facility] Absolute lymphocyte countOrd ered By: Tay Dumont on 10-21-2024 Lymphocytes Auto (Unsp spec) [#/Vol] 0.90 10*3/uL 0.83-4.51 [facility] Absolute neutrophil countOrd ered By: Tay Dumont on 10-21-2024 Neutrophils (Bld) [#/Vol] 4.0 10*3/uL 2.0-7.7 [facility] Anion gap in Serum or Plasma Ordered By: Tay Dumont on 10-21-2024 Anion gap [Moles/Vol] 14 mmol/L 5-15 [facility] Automated lymphocyte count a s percentage of total leukocytesOrdered By: Tay Dumont on 10-21-2024 Lymphocytes/100 WBC Auto (Unsp spec) 16.1 % Low 19-41 [facility] BUN/creatinine ratioOrdered By: Tay Dumont on 10-21-2024 Urea nitrogen/Creatinine [Mass ratio] 9.8 mg/mg Low 10-20 [facility] Basic Metabolic Profile (BMP )on 10-21-2024 BUN/CRE 9.8 RATIO Low 10-20 [facility] Comment on above: Performed By: #### L 100.0100, L500.2500 ####[facility] [address] [place], [address] Calcium [Mass/Vol] 9.2 mg/dL Normal 7.6-11.0 [facility] Comment on above: Performed By: #### L 100.0100, L500.2500 ####[facility] [address] [place], [address] Chloride [Moles/Vol] 102 mmol/L Normal 98-108 [facility] Comment on above: Performed By: #### L 100.0100, L500.2500 ####[facility] [address] [place], [address] CO2 [Moles/Vol] 24.0 mmol/L Normal 21.0-32.0 [facility] Comment on above: Performed By: #### L 100.0100, L500.2500 ####[facility] [address] [place], [address] Creatinine [Mass/Vol] 1.02 mg/dL Normal 0.70-1.20 [facility] Comment on above: Performed By: #### L 100.0100, L500.2500 ####[facility] [address] [place], [address] ECRCL 48.29 ml/min Low 50-250 [facility] Comment on above: Performed By: #### L 100.0100, L500.2500 ####[facility] [address] [place], [address] GAP 14 Normal 5-15 [facility] Comment on above: Performed By: #### L 100.0100, L500.2500 ####[facility] [address] [place], [address] GFR/1.73 sq M.predicted among non-blacks MDRD (S/P/Bld) [Vol rate/Area] 58 mL/min/{1.73_m2} Low >60 [facility] Comment on above: Result Comment: mL/m in/1.73m2 CKD-EPI Creatinine Equation (2020) Performed By: #### L 100.0100, L500.2500 ####[facility] [address] [place], [address] Glucose [Mass/Vol] 99 mg/dL Normal 70-99 [facility] Comment on above: Performed By: #### L 100.0100, L500.2500 ####[facility] [address] [place], [address] Potassium [Moles/Vol] 3.7 mmol/L Normal 3.3-5.1 [facility] Comment on above: Performed By: #### L 100.0100, L500.2500 ####[facility] [address] [place], [address] Sodium [Moles/Vol] 140 mmol/L Normal 133-145 [facility] Comment on above: Performed By: #### L 100.0100, L500.2500 ####[facility] [address] [place], [address] Urea nitrogen [Mass/Vol] 10 mg/dL Normal 4-19 [facility] Comment on above: Performed By: #### L 100.0100, L500.2500 ####[facility] [address] [place], [address] Basophil percentageOrdered B y: Tay Dumont on 10-21-2024 Basophils/100 WBC (Bld) 0.2 % 0-1 [facility] [place] CBC W/Diff, Automatedon Absolute Lymph 0.90 X10 3/uL Normal 0.83-4.51 [facility] Comment on above: Performed By: #### L 100.0100, L500.2500 ####[facility] [address] [place], [address] Absolute Neut 4.0 X10 3/uL Normal 2.0-7.7 [facility] Comment on above: Performed By: #### L 100.0100, L500.2500 ####[facility] [address] [place], [address] Basophils/100 WBC (Bld) 0.2 % Normal 0-1 [facility] Comment on above: Performed By: #### L 100.0100, L500.2500 ####[facility] [address] [place], [address] Eosinophils/100 WBC (Bld) 0.2 % Normal 0-5 [facility] Comment on above: Performed By: #### L 100.0100, L500.2500 ####[facility] [address] [place], [address] Erythrocyte distribution width (RBC) [Ratio] 17.9 % High 11.6-14.6 [facility] Comment on above: Performed By: #### L 100.0100, L500.2500 ####[facility] [address] [place], [address] Hematocrit (Bld) [Volume fraction] 37.6 % Normal 37-47 [facility] Comment on above: Performed By: #### L 100.0100, L500.2500 ####[facility] [address] [place], [address] Hemoglobin (Bld) [Mass/Vol] 11.7 g/dL Low 12.0-15.0 [facility] Comment on above: Performed By: #### L 100.0100, L500.2500 ####[facility] [address] [place], [address] IG% 0.400 Normal 0.0-0.9 [facility] Comment on above: Result Comment: IG% - Immature Granulocytes (promyelocytes, myelocytes andmetamyelocytes) > 1% indicates that a LEFT SHIFT is Present. Performed By: #### L 100.0100, L500.2500 ####[facility] [address] [place], [address] Lymphocytes/100 WBC (Bld) 16.1 % Low 19-41 [facility] Comment on above: Performed By: #### L 100.0100, L500.2500 ####[facility] [address] [place], [address] MCH (RBC) [Entitic mass] 25.7 pg Low 27.0-32.0 [facility] Comment on above: Performed By: #### L 100.0100, L500.2500 ####[facility] [address] [place], [address] MCHC (RBC) [Mass/Vol] 31.1 g/dL Low 32-36 [facility] Comment on above: Performed By: #### L 100.0100, L500.2500 ####[facility] [address] [place], [address] MCV (RBC) [Entitic vol] 82.6 fL Normal 81-99 [facility] Comment on above: Performed By: #### L 100.0100, L500.2500 ####[facility] [address] [place], [address] Monocytes/100 WBC (Bld) 12.4 % High 0-10 [facility] Comment on above: Performed By: #### L 100.0100, L500.2500 ####[facility] [address] [place], [address] Neutrophils/100 WBC (Bld) 70.7 % High 47-70 [facility] Comment on above: Performed By: #### L 100.0100, L500.2500 ####[facility] [address] [place], [address] Nucleated RBC (Bld) [#/Vol] 0 10*3/uL Normal 0-5 [facility] Comment on above: Performed By: #### L 100.0100, L500.2500 ####[facility] [address] [place], [address] Platelet mean volume (Bld) [Entitic vol] 8.6 fL Normal 6.2-12.0 [facility] Comment on above: Performed By: #### L 100.0100, L500.2500 ####[facility] [address] [place], [address] Platelets (Bld) [#/Vol] 335 10*3/uL Normal 150-450 [facility] Comment on above: Performed By: #### L 100.0100, L500.2500 ####[facility] [address] [place], [address] RBC (Bld) [#/Vol] 4.55 10*6/uL Normal 4.2-5.4 [facility] Comment on above: Performed By: #### L 100.0100, L500.2500 ####[facility] [address] [place], [address] RDW SD 53.9 fl High 35.1-43.9 [facility] Comment on above: Performed By: #### L 100.0100, L500.2500 ####[facility] [address] [place], [address] WBC (Bld) [#/Vol] 5.6 10*3/uL Normal 4.4-11.0 [facility] Comment on above: Performed By: #### L 100.0100, L500.2500 ####[facility] [address] [place], [address] Carbon dioxide, total [Moles /volume] in Central venous bloodOrdered By: Tay Dumont on 10-21-2024 CO2 [Moles/Vol] 24.0 mmol/L 21.0-32.0 [facility] Chest 1 View (Portable)on Chest 1 View (Portable) Normal [place] Chloride assayOrdered By: Jerome Dumont on 10-21-2024 Chloride [Moles/Vol] 102 mmol/L 98-108 [facility] Emergency Department Summary on 10-21-2024 Emergency Department Summary Normal [facility] Eosinophil percentageOrdered By: Tay Dumont on 10-21-2024 Eosinophils/100 WBC (Bld) 0.2 % 0-5 [facility] Erythrocyte distribution wid th (RBC) [Ratio]Ordered By: Tay Dumont on 10-21-2024 Erythrocyte distribution width (RBC) [Entitic vol] 53.9 fL High 35.1-43.9 [facility] Erythrocyte distribution wid th ratioOrdered By: Tay Dumont on 10-21-2024 Erythrocyte distribution width (RBC) [Ratio] 17.9 % High 11.6-14.6 [facility] Erythrocyte distribution wid th standard deviationOrdered By: Tay Dumont on 10-21-2024 Erythrocyte distribution width (RBC) [Ratio] 53.9 fl High 35.1-43.9 [facility] Estimation of creatinine nikki aranceOrdered By: Tay Dumont on 10-21-2024 Estimated Creatinine Clearance Calc 48.29 ml/min Low 50-250 [facility] GFR/1.73 sq M.predicted ty g non-blacks MDRD (S/P/Bld) [Vol rate/Area]Ordered By: Tay Dumont on 10-21-2024 Estimated GFR (MDRD) Non-Af Amer 58 Low >60 [facility] Comment on above: mL/min/1.73m2 CKD-EP I Creatinine Equation (2020) Glomerular filtration rate ( GFR) estimation/1.73 sq m using serum, plasma, or whole bOrdered By: Tay Dumont on 10-21-2024 GFR/1.73 sq M.predicted among non-blacks MDRD (S/P/Bld) [Vol rate/Area] 58 mL/min/{1.73_m2} Low >60 [facility] Comment on above: mL/min/1.73m2 CKD-EP I Creatinine Equation (2020) Hematocrit Auto (Bld) [Volum e fraction]Ordered By: Tay Dumont on 10-21-2024 Hematocrit (Bld) [Volume fraction] 37.6 % 37-47 [facility] Hemoglobin measurementOrdere d By: Tay Dumont on 10-21-2024 Hemoglobin (Bld) [Mass/Vol] 11.7 g/dL Low 12.0-15.0 [facility] Immature granulocytes/100 WB C Auto (Bld)Ordered By: Tay Dumont on 10-21-2024 Immature granulocytes/100 WBC (Bld) 0.400 % 0.0-0.9 [facility] Comment on above: IG% - Immature Granu locytes (promyelocytes, myelocytes and metamyelocytes) > 1% indicates that a LEFT SHIFT is Present. Lymphocytes Auto (Unsp spec) [#/Vol]Ordered By: Tay Dumont on 10-21-2024 Lymphocytes (Bld) [#/Vol] 0.90 10*3/uL 0.83-4.51 [facility] Lymphocytes/100 WBC Auto (Un sp spec)Ordered By: Tay Dumont on 10-21-2024 Lymphocytes/100 WBC (Bld) 16.1 % Low 19-41 [facility] MCV (mean corpuscular volume ) determinationOrdered By: Tay Dumont on 10-21-2024 MCV (RBC) [Entitic vol] 82.6 fL 81-99 [place] Mean corpuscular hemoglobin (MCH) determinationOrdered By: Tay Dumont on 10-21-2024 MCH (RBC) [Entitic mass] 25.7 pg Low 27.0-32.0 [facility] Mean corpuscular hemoglobin concentration (MCHC) determinationOrdered By: Tay Dumont on 10-21-2024 MCHC (RBC) [Mass/Vol] 31.1 g/dL Low 32-36 [facility] Mean platelet volume determi nationOrdered By: Tay Dumont on 10-21-2024 Platelet mean volume (Bld) [Entitic vol] 8.6 fL 6.2-12.0 [facility] Monocyte percentageOrdered B y: Tay Dumont on 10-21-2024 Monocytes/100 WBC (Bld) 12.4 % High 0-10 [place] Neutrophil percentageOrdered By: Tay Dumont on 10-21-2024 Neutrophils/100 WBC (Bld) 70.7 % High 47-70 [facility] Nucleated red blood cell per centageOrdered By: Tay Dumont on 10-21-2024 Nucleated RBC/100 WBC (Bld) [Ratio] 0 % 0-5 [facility] Platelet countOrdered By: Jerome Dumont on 10-21-2024 Platelets (Bld) [#/Vol] 335 10*3/uL 150-450 [facility] Potassium (Unsp spec) [Mass/ Vol]Ordered By: Tay Dumont on 10-21-2024 Potassium [Moles/Vol] 3.7 mmol/L 3.3-5.1 [facility] Potassium measurement (mass/ volume)Ordered By: Tay Dumont on 10-21-2024 Potassium (Unsp spec) [Mass/Vol] 3.7 mmol/L 3.3-5.1 [facility] RBC Auto (Bld) [#/Vol]Ordere d By: Tay Dumont on 04-05-2025 RBC (Bld) [#/Vol] 4.55 10*6/uL 4.2-5.4 [facility] Serum creatinine measurement (mass/volume)Ordered By: Tay Dumont on 10-21-2024 Creatinine [Mass/Vol] 1.02 mg/dL 0.70-1.20 [facility] Serum glucose measurement (m ass/volume)Ordered By: Tay Dumont on 10-21-2024 Glucose [Mass/Vol] 99 mg/dL 70-99 [facility] Serum or plasma calcium usman urement (mass/volume)Ordered By: Tay Dumont on 10-21-2024 Calcium [Mass/Vol] 9.2 mg/dL 7.6-11.0 [facility] Serum or plasma urea nitroge n measurement (mass/volume)Ordered By: Tay Dumont on 10-21-2024 Urea nitrogen [Mass/Vol] 10 mg/dL 4-19 [facility] Sodium levelOrdered By: Tay Dumont on 10-21-2024 Sodium [Moles/Vol] 140 mmol/L 133-145 [facility] White blood cell (WBC) count Ordered By: Tay Dumont on 10-21-2024 WBC (Bld) [#/Vol] 5.6 10*3/uL 4.4-11.0 [facility] Progress Noteon 10-20-2024 Progress Note This patient has been referred to the oncology team. The staging PET scan should be addressed by the multidisciplinary team. Giving him the diagnosis and extent of disease, surgical resection is not indicated. Normal [facility] 36on 10-18-2024 36 Pt daughter notified [facility] 36 Script sent [place] [address] Navigator received callback from patient's daughter Diaz. Patient's daughter reports that since we are able to expedite MRI and PET scan, oncology appointment has been moved up to 10/31/2024, but this is just tentative appointment as her oncology provider in [place] is out of town and may not be back until 11/06/2024. Daughter would like Dr. Lacho Kamara to review and is willing to transfer care for oncology to [facility] if pulmonary provider feels sooner oncology appointment for small cell is needed. Normal [facility] 36 Pt daughter called and states that pt is claustrophobic. Dr. Fortune ordered a PET scan which is scheduled on 10/20/24. She is requesting something to help with anxiety prior to scan. She states what she was given for MRI brain worked great. Pharmacy confirmed. Please advise. Previous prescription was Xanax 0.5 mg tablet. [facility] 36on 10-17-2024 36 Navigator contacted patient's daughter by phone. They would like first available PET scan at any location. She is currently scheduled 10/30/24. Moved up PET scan appointment to Faxed records including path report, thoracentesis report, thoracic conference recommendations, CTS and pulmonary and cardiology consults to patient's regular oncologist, Dr. Dunham and sampler and test preparer Rhiannon Georges in [place]. Patient has medical oncology appointment 11/06/24 but will try to move appointment sooner after PET scan. Navigator will send PET and MRI reports to providers once final . [facility] 37on 10-17-2024 37 YOUR APPOINTMENT TODAY WAS WITH THE [facility] LUNG NODULE CL[facility]IC, COPD CLINIC, PULMONARY AND SLEEP MEDICINE OFFICE. PLEASE CALL OUR OFFICE AT [phone] IF YOU HAVE NOT RECEIVED YOUR TEST RESULTS 7 DAYS AFTER TESTING IS COMPLETED. PLEASE REMEMBER TO REQUEST REFILLS AT YOUR OFFICE VISITS. PHONE/FAX REQUESTS REQUIRE 48-72 HOURS FOR RESPONSE. A FRIENDLY REMINDER COPAYS ARE DUE AT TIME OF SERVICE. THANK YOU. Our Patients Are Important! We want to improve and you can help. After your visit we want you to feel: Listened to, Respected and have your health care explained. You may receive a survey asking you about your visit. Please complete the survey. We will use your feedback to make improvements. COVID-19 VACCINATION INFORMATION: PH. [phone] [email or web address] US/VACCINE [facility] Central Scheduling [phone] [facility] Sleep Scheduling [phone] [facility] Office Visiton 10-17-2024 Follow-up visit [id number] Karina Fernando Hans 1950 F Date Provider Department Center 10/17/2024 [id number] ASS, C*SHMG ACH PUL None Family History Problem Relation Age of Onset Cancer Mother Cancer Father No Known Problems Sister No Known Problems Brother Heart disease Brother Family Status - Relation Status Age at Mother Father Sister Alive Brother Alive Brother Alive Level of Service:08915 [place] OFFICE/OUTPATIENT ESTABLISHED MOD MDM 30 MIN Reason for Visit and Comments: Follow-up [370741] [facility] Progress Noteon 10-17-2024 Progress Note [facility], Pulmonary Critical Care Medicine [address] [place] [address] Pulmonary Patient Visit 10/17/2024 Referring Physician: TU HECTOR DO Reason for Referral: SOB 10/03/24 History of Present Illness Karina Fernando is a 73 y.o. F with history of recurrent sinus infections, COPD on symbicort/albuterol, HTN who presented for a left hilar mass. Stated that in May she began having shortness of breath which worsened until she went to the ER in [place] in August. Found on CT with a left hilar mass, left upper lobe pleural-based mass, and moderate pericardial effusion. Evaluated by oncology and recommended for PET/CT, MRI brain, and biopsy. Established with pulmonology and had been planned for EBUS in [place] but canceled after TTE demonstrated a right atrial mass and moderate RA collapse due to a small pericardial effusion. Evaluated by Dr. Fortune earlier today. Patient reports dyspnea has continued to progress, experiences when she is sitting upright or with exertion. Has had a cough and occasional wheezing. Now on Symbicort and using albuterol 4 times daily. Reported substernal chest discomfort since May. Has had lightheadedness and dizziness for the past 3 days. Has a history of facial BCC s/p excision 2022. Denied hemoptysis, chest tightness, unintentinoal weight loss Smoking history: Former smoker quit 05/2024, 1 ppd x 40 years Occupational exposure: Denied Family history of malignancy: Mother with leukemia, father with brain cancer Age appropriate cancer screening Mammography/PAP: Previously normal Colonoscopy: Previously normal 10/17/24 Patient was hospitalized in [place] ER for worsening pain and shortness of breath, unchanged. Transferred to [facility]. S/p bronchoscopy 10/09/[address] Mejia. Reported continued cough and shortness of breath. 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 Spondylolisthesis, lumbar region Past Surgical History Past Surgical History: Procedure Laterality Date APPENDECTOMY BLEPHAROPLASTY Bilateral BUNIONECTOMY Left CARPAL TUNNEL RELEASE Right HC ENDOBRONCHIAL ULTRASOUND EBUS (HISTORICAL) 10/09/2024 LUMBAR FUSION TOTAL KNEE ARTHROPLASTY Bilateral VAGINAL DELIVERY 1971 VAGINAL DELIVERY 1972 Allergies Allergies Allergen Reactions Alendronate Muscle ache, Swelling / lump finding Cefaclor Hives Erythromycin Nausea And Vomiting Erythromycin Base Nausea Only Famciclovir Hives Gabapentin Unknown Morphine Nausea And Vomiting Penicillins Hives Tramadol Hives, Itching and Nausea And Vomiting Hydrochlorothiazide W-Triamterene Rash Medications Medication Documentation Review Audit Reviewed by Rachel Johnson DO (Physician) on 10/17/24 at 1226 Medication Order Taking? Sig Documenting Provider Last Dose Status acetaminophen (Tylenol) 325 MG tablet [id number] Take 2 tablets (650 mg) by mouth every 6 hours as needed for mild pain (1-3) or fever (For temp greater than 100.4 F (38 C)) for up to 10 days. Patient not taking: Reported on 10/09/2024 Emile Horne DO 10/16/24 235 albuterol (Ventolin HFA) 108 (90 Base) MCG/ACT inhaler [id number] Yes Inhale 2 puffs every 4 hours as needed for wheezing or shortness of breath. Rachel Johnson DO Active ALPRAZolam (Xanax) 0.5 MG tablet [id number] Take 1 tablet (0.5 mg) by mouth 1 time for 1 dose. Take 30 minutes prior to MRI Lisandra Aldridge, GARAGE WORKER - RX SPECIALIST 10/10/24 235 Discontinued 10/17/24 1119 budesonide-formotero l (Symbicort) 80-4.5 MCG/ACT inhaler [id number] Inhale 2 puffs 2 times daily. Rachel Johnson DO Active busPIRone (Buspar) 10 MG tablet [id number] Yes Take 10 mg by mouth 3 times daily as needed. Historical Provider, Active cholecalciferol (Vitamin D-3) 25 MCG (1000 UT) capsule [id number] Yes Take 1,000 Units by mouth daily. Historical Provider, Active ipratropium-albutero l (Duo-Neb) 0.5-2.5 mg/3 mL nebulizer solution [id number] Yes Take 3 mL by nebulization every 6 hours. Historical Provider, Active loratadine (Claritin) 5 MG chewable tablet [id number] Yes Chew 5 mg daily. Historical Provider, Active Melatonin 2.5 MG chewable tablet [id number] Yes Chew Daily as needed. Historical Provider, Active Multiple Vitamin (multivitamin) capsule [id number] Yes Take 1 capsule by mouth daily. Historical Provider, Active [place]-3 Fatty Acids (OMEGA 3 500 PO) [id number] Yes Take by mouth daily. Historical Provider, Active oxyCODONE-acetaminop hen (Percocet) 7.5-325 MG tablet [id number] Take 1 tablet by mouth every 6 hours as needed for moderate pain (4-6) for up to 5 days. Emile Horne, (more content not included)... Normal [facility] Progress Note THORACIC ONCOLOGY AND LUNG NODULE TUMOR BOARD RECOMMENDATIONS Consensus Recommendation Summary Privileged Information TUMOR BOARD CLINICAL SUMMARY Basic Demographic Information Karina Fernando Date of presentation : 10/17/24 1950 Presenting physician: Dr. Johnson 73 y.o. [] Previous presentation date : Presentation Type [x] Prospective [] Retrospective [] Nodule Brief Clinical Summary & Tumor Board Recommendations 4 Diagnosis Small Cell Ca; Thyroid nodules; R atrial mass Presenter: Dr. Mejia Screening: Name Karina Fernando Surgeon: Dr. Evita Watson to do recommendations for candace CTC: SK MR#/Epic [id number] Oncologist: Dr. Mauri Chance ([place]) CTAP: /Age 512/16/51 73 yo Rad Oncologist MRI: 10/17/24 Gender Female Digital Commentator: Dr. Lacho Kamara/ [facility] PET: 10/30/24 Smoking History: ? Former 40 pk yr Quit 05/2024 PCP: Dr. Tu Hector PFT: 09/25/24 @ [facility] ?Prospective []Retrospective Steam Drier Operator: Dr. Luis PATH: EBUS/TBBX 10/09/24; US [place]ora 10/06/24; Thyroid bx- [place] 10/10/24 (path pending) Clinical Stage: unable to stage : @ least N2 dz Path Stage: T N M Barium Swallow 10/06/24 Brief Summary Known COPD was seen in ED at [place] for eval of worsening SOB, Left shoulder, back, and lung pain, and dizziness. CT in [place] noted a left hilar mass, LEYLA mass and adenopathy, R atrial mass, pericardial effusion and thyroid nodules. Evaluated by [place] med onc and recommended to have PET, MRI and biopsy. Sent to [facility] and arranged same day urgent appts with pulmonary and cardiology. Sent for EBUS and now presents to review imaging, path, staging and plan of care. * Also completed thyroid bx @ [place] and path results are pending Recommendations: 1. MRI Brain 2. PET 3. Med Onc Eval Available Protocol Recommendation [] Yes Protocol: Report Completed by Aixa Roche RCP 10/17/2024 Thoracic Tumor Board Moderator-Wesley Gonzalez DO Recommendations from Tumor Conference are based on national evidence based guidelines. The plan used by the managing physician(s) may vary based on the status of the individual patient and the reports results made available at time of presentation. We recognize that this data set may change and that the final treatment plan may differ from this recommendation. Normal [facility] 36on 10-11-2024 36 Pt daughter notified. Confirmed with pharmacy that prescription is ready for pickup. Normal [facility] 36on 10-10-2024 36 Script sent for 1 time dose prior to MRI- please notify patient Normal [facility] 36 Pt called and states she is claustrophobic. Dr. Fortune ordered an MRI brain which is scheduled on 10/17/24. Pt is requesting something to help with anxiety prior to scan. Pharmacy confirmed. Please advise. Normal [facility] Culture, Blood (WB)on 2024 CUB Blood cultures x2, from two different sites No growth in 5 days. Normal [facility] Comment on above: Performed By: #### L 500.4050, L300.3900, L503.6005, L100.0100, L300.4310, M200.1000 ####[facility] [address] [place], [place], [address] FNA 1st Biopsy w/ USon 10-10 FNA 1st Biopsy w/ US Normal [facility] Special Stain Group IIon Special Stain Group II Normal [facility] Comment on above: Performed By: #### P SSII ####[facility] [address] [place], [address] 36on 10-09-2024 36 Taresa notified. Normal [facility] AFB CULTUREon 10-09-2024 AFB CULTURE AFB CULTURE Reference No growth at 6 weeks AFB STAIN Reference No acid fast bacilli seen by fluorescent microscopy ORDER COMMENTS: Stain Reference Range: No acid fast bacilli seen by fluorescent microscopy. [ S = SUSCEPTIBLE R = RESISTANT I = INTERMEDIATE S-DD = Susceptible-dose dependent NS = Non-susceptible NO = No Interpretation ] Normal [facility] Comment on above: Performed By: #### L [id number] ####Zoology Technical Officer: GUERDA WEBBER ([id number])[address] FUNGAL CULTUREon 10-09-2024 FUNGAL CULTURE FUNGAL CULTURE Reference No fungus isolated after 21 days [ S = SUSCEPTIBLE R = RESISTANT I = INTERMEDIATE S-DD = Susceptible-dose dependent NS = Non-susceptible NO = No Interpretation ] Normal [facility] Comment on above: Performed By: #### L [id number] #### Zoology Technical Officer: GUERDA WEBBER ([id number]) [facility] [address] [place] [address] FUNGAL STAINon 10-09-2024 FUNGAL STAIN FUNGAL STAIN Reference No fungal elements seen ORDER COMMENTS: Reference Range: No fungal elements seen [ S = SUSCEPTIBLE R = RESISTANT I = INTERMEDIATE S-DD = Susceptible-dose dependent NS = Non-susceptible NO = No Interpretation ] [facility] Comment on above: Performed By: #### L [id number], [id number] ####Zoology Technical Officer: GUERDA WEBBER ([id number])[facility])[address] [place] [address] RESPIRATORY CULTURE AND STAI Non 10-09-2024 RESPIRATORY CULTURE AND STAIN RESPIRATORY CULTURE Reference Rare respiratory deng present. STENOTROPHOMONAS MALTOPHILIA Rare Stenotrophomonas maltophilia (A) GRAM STAIN RESULT Reference Rare Polymorphonuclear leukocytes per low power field Rare Epithelial cells per low power field No organisms seen Organism: STENOTROPHOMONAS MALTOPHILIA Antibiotic ADITI Interpretation Status Levofloxacin 0.5 ug/ml S F Minocycline <=0.5 ug/ml S F Trimethoprim / Sulfamethoxazole <=20 ug/ml S F [ S = SUSCEPTIBLE R = RESISTANT I = INTERMEDIATE S-DD = Susceptible-dose dependent NS = Non-susceptible NO = No Interpretation ] [facility] Comment on above: Performed By: #### L [id number], [id number] ####Zoology Technical Officer: GUERDA WEBBER ([id number])[facility] [place] [address] 30on 10-06-2024 30 Patient discharged Problem: Pain - Adult Goal: Verbalizes/displays adequate comfort level or baseline comfort level Outcome: Completed Problem: Safety - Adult Goal: Free from fall injury Outcome: Completed Problem: Discharge Planning Goal: Discharge to home or other facility with appropriate resources Outcome: Completed Problem: Chronic Conditions and Co-morbidities Goal: Patient's chronic conditions and co-morbidity symptoms are monitored and maintained or improved Outcome: Completed [facility] [id number] 10-06-2024 [id number] Pt adm for tx/ eval of SOB- found to have pleural effusion. RA currently. US guided thoracentesis, XR chest and barium swallow completed. Spoke with pt and family, introduced self and roll. Pt plans to return home- no needs. [facility] CBC W Auto Differential pane l (Bld)on 10-06-2024 Basophils (Bld) [#/Vol] 0 10*3/uL 0.0 - 0.2 10*3/uL [facility] Basophils/100 WBC (Bld) 0.6 % 0.0 - 2.0 % [facility] Eosinophils (Bld) [#/Vol] 0 10*3/uL 0.0 - 0.5 10*3/uL [facility] Eosinophils/100 WBC (Bld) 0.6 % 0.0 - 6.0 % [facility] Erythrocyte distribution width (RBC) [Ratio] 18.8 % High 11.5 - 15.0 % [facility] Hematocrit (Bld) [Volume fraction] 34.4 % Low 35.0 - 47.0 % [facility] Hemoglobin (Bld) [Mass/Vol] 11 g/dL Low 11.7 - 16.0 g/dL [facility] Bion[facility] Immature granulocytes (Bld) [#/Vol] 0 10*3/uL NINF - 0.1 10*3/uL [facility] Health Immature granulocytes/100 WBC (Bld) 0.3 % 0.0 - 2.0 % [facility] Interpretation and review of laboratory results Abnormal [facility] Lymphocytes (Bld) [#/Vol] 0.7 10*3/uL Low 1.0 - 4.3 10*3/uL [facility] Lymphocytes/100 WBC (Bld) 20.2 % 15.0 - 45.0 % [facility] MCH (RBC) [Entitic mass] 25.9 pg Low 26.0 - 34.0 pg [facility] MCHC (RBC) [Mass/Vol] 32 % 30.5 - 36.0 % [facility] MCV (RBC) [Entitic vol] 80.9 fL 77.0 - 99.0 fL [facility] Monocytes (Bld) [#/Vol] 0.6 10*3/uL 0.0 - 0.9 10*3/uL [facility] Monocytes/100 WBC (Bld) 16.4 % High 5.0 - 13.0 % [facility] Neutrophils (Bld) [#/Vol] 2.2 10*3/uL 1.8 - 7.5 10*3/uL [facility] Health Neutrophils/100 WBC (Bld) 61.9 % 38.0 - 82.0 % [facility] Nucleated RBC/100 WBC (Bld) [Ratio] 0 % [facility] Platelet mean volume (Bld) [Entitic vol] 8.9 fL Low 9.0 - 12.7 fL [facility] Platelets (Bld) [#/Vol] 226 10*3/uL 140 - 440 10*3/uL [facility] RBC (Bld) [#/Vol] 4.25 10*6/uL 3.80 - 5.2 0 10*6/uL [facility] WBC (Bld) [#/Vol] 3.5 10*3/uL Low 3.6 - 10.7 10*3/uL [facility] CBC WITH AUTO DIFFERENTIALon 10-06-2024 Basophils (Bld) [#/Vol] 0.0 10*3/uL Normal 0.0-0.2 [facility] Comment on above: Performed By: #### L [id number] ####Zoology Technical Officer: GUERDA WEBBER ([id number])[facility])[address] [place] [address] Basophils/100 WBC (Bld) 0.6 % Normal 0.0-2.0 [facility] Comment on above: Performed By: #### L [id number] ####Zoology Technical Officer: GUERDA WEBBER ([id number])[facility])[address] [place] [address] Eosinophils (Bld) [#/Vol] 0.0 10*3/uL Normal 0.0-0.5 [facility] Comment on above: Performed By: #### L [id number] ####Zoology Technical Officer: GUERDA WEBBER ([id number])[facility])[address] [place] [address] Eosinophils/100 WBC (Bld) 0.6 % Normal 0.0-6.0 [facility] Comment on above: Performed By: #### L [id number] ####Zoology Technical Officer: GUERDA WEBBER ([id number])[facility])[address] [place] [address] Erythrocyte distribution width (RBC) [Ratio] 18.8 % High 11.5-15.0 [facility] Comment on above: Performed By: #### L [id number] ####Zoology Technical Officer: GUERDA WEBBER ([id number])[facility])[address] [place] [address] Hematocrit (Bld) [Volume fraction] 34.4 % Low 35.0-47.0 [facility] Comment on above: Performed By: #### L [id number] ####Zoology Technical Officer: GUERDA WEBBER ([id number])[facility])[address] [place] [address] Hemoglobin (Bld) [Mass/Vol] 11.0 g/dL Low 11.7-16.0 [facility] Comment on above: Performed By: #### L [id number] ####Zoology Technical Officer: GUERDA WEBBER ([id number])[facility])[address] [place] [address] IMMATURE GRANS % 0.3 % Normal 0.0-2.0 [facility] Comment on above: Performed By: #### L [id number] ####Zoology Technical Officer: GUERDA WEBBER ([id number])[facility])[address] [place] [address] IMMATURE GRANS ABSOLUTE 0.0 10*3/uL Normal <0.1 [facility] Comment on above: Performed By: #### L [id number] ####Zoology Technical Officer: GUERDA WEBBER ([id number])[facility] ([facility])[address] [place] [address] Lymphocytes (Bld) [#/Vol] 0.7 10*3/uL Low 1.0-4.3 [facility] Comment on above: Performed By: #### L [id number] ####Zoology Technical Officer: GUERDA WEBBER ([id number])[facility])[address] [place] [address] Lymphocytes/100 WBC (Bld) 20.2 % Normal 15.0-45.0 [facility] Comment on above: Performed By: #### L [id number] ####Zoology Technical Officer: GUERDA WEBBER ([id number])[facility])[address] [place] [address] MCH (RBC) [Entitic mass] 25.9 pg Low 26.0-34.0 [facility] Comment on above: Performed By: #### L [id number] ####Zoology Technical Officer: GUERDA WEBBER ([id number])[facility])[address] [place] [address] MCHC 32.0 % Normal 30.5-36.0 [facility] Comment on above: Performed By: #### L [id number] ####Zoology Technical Officer: GUERDA WEBBER ([id number])[facility] ([facility])[address] [place] [address] MCV (RBC) [Entitic vol] 80.9 fL Normal 77.0-99.0 [facility] Comment on above: Performed By: #### L [id number] ####Zoology Technical Officer: GUERDA WEBBER ([id number])[facility])[address] [place] [address] Monocytes (Bld) [#/Vol] 0.6 10*3/uL Normal 0.0-0.9 [facility] Comment on above: Performed By: #### L [id number] ####Zoology Technical Officer: GUERDA WEBBER ([id number])[facility] ([facility])[address] [place] [address] Monocytes/100 WBC (Bld) 16.4 % High 5.0-13.0 [facility] Comment on above: Performed By: #### L [id number] ####Zoology Technical Officer: GUERDA WEBBER ([id number])[facility] ([facility])[address] [place] [address] NEUTROPHILS ABSOLUTE 2.2 10*3/uL Normal 1.8-7.5 [facility] Comment on above: Performed By: #### L [id number] ####Zoology Technical Officer: GUERDA WEBBER ([id number])[facility] ([facility])[address] [place] [address] Neutrophils/100 WBC (Bld) 61.9 % Normal 38.0-82.0 [facility] Comment on above: Performed By: #### L [id number] ####Zoology Technical Officer: GUERDA WEBBER ([id number])[facility] ([facility])[address] [place] [address] NRBC 0.0 /100 WBCs Normal 0.0-2.0 [facility] Comment on above: Performed By: #### L [id number] ####Zoology Technical Officer: GUERDA WEBBER ([id number])[facility])[address] [place] [address] Platelet mean volume (Bld) [Entitic vol] 8.9 fL Low 9.0-12.7 [facility] Comment on above: Performed By: #### L [id number] ####Zoology Technical Officer: GUERDA WEBBER ([id number])[facility] ([facility])[address] [place] [address] Platelets (Bld) [#/Vol] 226 10*3/uL Normal 140-440 [facility] Comment on above: Performed By: #### L [id number] ####Zoology Technical Officer: GUERDA WEBBER ([id number])[facility])[address] [place] [address] RBC (Bld) [#/Vol] 4.25 10*6/uL Normal 3.80-5.20 [facility] Comment on above: Performed By: #### L [id number] ####Zoology Technical Officer: GUERDA WEBBER ([id number])[facility] ([facility])[address] [place] [address] WBC (Bld) [#/Vol] 3.5 10*3/uL Low 3.6-10.7 [facility] Comment on above: Performed By: #### L [id number] ####Zoology Technical Officer: GUERDA WEBBER ([id number])[facility] ([facility])[address] [place] [address] COMPREHENSIVE METABOLIC PANE Duran 10-06-2024 Albumin [Mass/Vol] 3.0 g/dL Low 3.4-4.8 [facility] Comment on above: Performed By: #### L [id number], [id number] #### Zoology Technical Officer: GUERDA WEBBER ([id number]) [facility]) [address] [place] [address] ALP [Catalytic activity/Vol] 45 U/L Normal 40-150 [facility] Comment on above: Performed By: #### L AB17, [id number] #### Zoology Technical Officer: GUERDA WEBBER ([id number]) [facility] ([facility]) [address] [place] [address] ALT [Catalytic activity/Vol] 9 U/L Normal <30 [facility] Comment on above: Performed By: #### L [id number], [id number] #### Zoology Technical Officer: GUERDA WEBBER ([id number]) [facility] ([facility]) [address] [place] [address] Anion gap [Moles/Vol] 8 mmol/L Normal 3-13 [facility] Comment on above: Performed By: #### L AB17, [id number] #### Zoology Technical Officer: GUERDA WEBBER ([id number]) [facility] ([facility]) [address] [place] [address] AST [Catalytic activity/Vol] 17 U/L Normal <34 [facility] Comment on above: Performed By: #### L AB17, [id number] #### Zoology Technical Officer: GUERDA WEBBER ([id number]) [facility] ([facility]) [address] [place] [address] [place] Bilirubin [Mass/Vol] 0.3 mg/dL Normal <1.2 [facility] Comment on above: Performed By: #### L AB17, [id number] #### Zoology Technical Officer: GUERDA WEBBER ([id number]) [facility] ([facility]) [address] [place] [address] [place] Calcium [Mass/Vol] 9.0 mg/dL Normal 8.8-10.0 [facility] Comment on above: Performed By: #### L [id number], [id number] #### Zoology Technical Officer: GUERDA WEBBER ([id number]) [facility]) [address] [place] [address] [place] Chloride [Moles/Vol] 106 mmol/L Normal 98-107 [facility] Comment on above: Performed By: #### L AB17, [id number] #### Zoology Technical Officer: GUERDA WEBBER ([id number]) [facility] ([facility]) [address] [place] [address] CO2 [Moles/Vol] 27 mmol/L Normal 23-31 [facility] Comment on above: Performed By: #### L AB17, [id number] #### Zoology Technical Officer: GUERDA WEBBER ([id number]) [facility] ([facility]) [address] [place] [address] Creatinine [Mass/Vol] 0.83 mg/dL Normal 0.57-1.11 [facility] Comment on above: Performed By: #### L AB17, [id number] #### Zoology Technical Officer: GUERDA WEBBER ([id number]) [facility] ([facility]) [address] [place] [address] GLOMERULAR FILTRATION RATE ML/MIN/1.73 SQ M.PREDICTED 75.0 mL/min/1.73m*2 Normal >60.0 [facility] Comment on above: Result Comment: Calc ulation based on the Chronic Kidney Disease Epidemiology Collaboration (CKD-EPI) equation refit without adjustment for race Performed By: #### L AB17, [id number] #### Zoology Technical Officer: GUERDA WEBBER ([id number]) [facility]) [address] [place] [address] Glucose [Mass/Vol] 92 mg/dL Normal 82-115 [facility] Comment on above: Performed By: #### L AB17, [id number] #### Zoology Technical Officer: GUERDA WEBBER ([id number]) [facility]) [address] [place] [address] [place] Potassium [Moles/Vol] 3.3 mmol/L Low 3.5-5.1 [facility] Comment on above: Result Comment: [facility] potassium values may be up to 0.5 mmol/L lower than serum values. Performed By: #### L AB17, [id number] #### Zoology Technical Officer: GUERDA WEBBER ([id number]) [facility]) [address] [place] [address] Protein [Mass/Vol] 6.2 g/dL Low 6.4-8.3 [facility] Comment on above: Performed By: #### L AB17, [id number] #### Zoology Technical Officer: GUEDRA WEBBER ([id number]) [facility]) [address] [place] [address] Sodium [Moles/Vol] 141 mmol/L Normal 136-145 [facility] Comment on above: Performed By: #### L AB17, [id number] #### Zoology Technical Officer: GUERDA WEBBER ([id number]) [facility]) [address] [place] [address] Urea nitrogen [Mass/Vol] 8 mg/dL Low 9-23 [facility] Comment on above: Performed By: #### L AB17, [id number] #### Zoology Technical Officer: GUERDA WEBBER ([id number]) [facility]) [address] [place] [address] Comprehensive metabolic 1998 panelon 10-06-2024 Albumin [Mass/Vol] 3 g/dL Low 3.4 - 4.8 g/dL [facility] ALP [Catalytic activity/Vol] 45 U/L 40 - 150 U/L [facility] ALT [Catalytic activity/Vol] 9 U/L NINF - 30 U/L [facility] Anion gap [Moles/Vol] 8 mmol/L 3 - 13 mmol/L [facility] AST [Catalytic activity/Vol] 17 U/L [facility] U/L [facility] Bilirubin [Mass/Vol] 0.3 mg/dL [facility] - 1.2 mg/dL [facility] Calcium [Mass/Vol] 9 mg/dL 8.8 - 10. 0 mg/dL [facility] Chloride [Moles/Vol] 106 mmol/L 98 - 10 7 mmol/L [facility] CO2 [Moles/Vol] 27 mmol/L 23 - 31 mmol/L [facility] Creatinine [Mass/Vol] 0.83 mg/dL 0.57 - 1.11 mg/dL [facility] GFR/1.73 sq M.predicted (S/P/Bld) [Vol rate/Area] 75 mL/min - PINF [facility] Comment on above: Calculation based on the Chronic Kidney Disease Epidemiology Collaboration (CKD-EPI) equation refit without adjustment for race Glucose [Mass/Vol] 92 mg/dL 82 - 115 mg/dL [facility] Interpretation and review of laboratory results Abnormal [facility] Potassium [Moles/Vol] 3.3 mmol/L Low 3.5 - 5.1 mmol/L [facility] Comment on above: Plasma potassium breana ues may be up to 0.5 mmol/L lower than serum values. Protein [Mass/Vol] 6.2 g/dL Low 6.4 - 8.3 g/dL [facility] Sodium [Moles/Vol] 141 mmol/L 136 - 145 mmol/L [facility] Urea nitrogen [Mass/Vol] 8 mg/dL Low 9 - 23 mg/dL [facility] Consulton 10-06-2024 Consult [facility] Pulmonary Medicine [address] [id number] Patient - Karina Fernando - 1950 Date of Admission - 10/05/2024 8:10 PM Date of Evaluation - 10/06/2024 Room - [facility] Hospital Day - 1 Consulting - Emile Horne DO PCP - TU HECTOR DO I saw and evaluated the patient, participating in the rebollar portions of the service. I reviewed the resident?s note. I agree with the resident?s findings and plan. Assessment: 1 SOB 2 large left lung mass causing near complete atelectasis, scheduled for bronchoscopy on Wednesday 3 chest pain 4 COPD 5 former smoker Plan: 1 Home O2 evaluation 2 pain control 3 follow-up for procedure on Wednesday Randolph Biswas MD Reason for Consult Pleural effusion History of Present Illness Karina Fernando is a 73 y.o. female admitted for worsening shortness of breath. She presented to the emergency department at [facility] with worsening left shoulder, back, lung pain and lightheadedness when standing. Reportedly, she had also been experiencing voice changes and difficulty swallowing both liquids and solids with some swelling since February 2024. She is also been experiencing worsening headache, sensation of vertigo, ringing in her left ear, sensation of falling to the left side. At the [place] emergency department, she underwent a chest x-ray which demonstrated a large left-sided pleural effusion and so was sent for management to the [facility]. When I examined her this morning, she reported that she started experiencing band-like pain below the level of her breasts but extending circumferentially and axially towards the back with some shoulder radiation. This pain worsened and she presented as above. She has had a minor cough which appears to have worsened slightly over the same time period. Upon review of her chart, she had recently been seen by our colleagues at the cardiothoracic surgery office, as a follow-up for a previous hospital admission at the [facility] afebrile [address] chest had demonstrated a left hilar mass, left upper lobe pleural based mass and a large prevascular lymph node, concerning for possible malignancy. At the time, it was recommended that she undergo EBUS/EMB, PET scan and MRI. It appears that a TTE was concerning for pericardial effusion with tamponade physiology which resulted in cardiology consultation. Cardiology office has recommended that the above studies be conducted regardless due to the low risk of the atrial lesion and cardiovascular insignificant effusion. Patient has a past medical history of: - Longstanding smoking history, 1 pdd for 52 yrs. - COPD on symbicort -> now trelegy. 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 Social History Social History Socioeconomic History Marital status: Spouse name: Not on file Number of children: Not on file Years of education: Not on file Highest education level: Not on file Occupational History Not on file Tobacco Use Smoking status: Former Average packs/day: 1 pack/day for 51.9 years (51.9 ttl pk-yrs) Types: Cigarettes Start date: 1972 Passive exposure: Past Smokeless tobacco: Never Vaping Use Vaping status: Never Used Substance and Sexual Activity Alcohol use: Not Currently Drug use: Never Comment: caffeine: 2 cups of coffee per day, 2 small cans of diet soda Sexual activity: Not on file Other Topics Concern Not on file Social History Narrative Not on file Social Drivers of Health Financial Resource Strain: Not on file Food Insecurity: Not on file Transportation Needs: Not on file Physical Activity: Not on file Stress: Not on file Social Connections: Not on file Intimate Partner Violence: Not on file Housing Stability: Not on file Family History Family History Problem Relation Name Age of Onset Cancer Mother Cancer Father No Known Problems Sister No Known Problems Brother Heart disease Brother Immunization History There is no immunization history on file for this patient. Medications Current Medications enoxaparin, 40 mg, SubCUTAneous, Daily [Held by provider] hydroCHLOROthiazide, 25 mg, Oral, Daily ipratropium-albutero l, 3 mL, Nebulizat (more content not included)... Normal [facility] FL MODIFIED BARIUM WITH VIDE O AND SPEECHon 10-06-2024 FL MODIFIED BARIUM WITH VIDEO AND SPEECH Patient Name: KARINA FERNANDO : 1950 Exam Date/Time: 10/06/2024 08:57 Procedure: FL MODIFIED BARIUM WITH VIDEO AND SPEECH Ordering Provider: TAM CANDICE Reason For Exam: dysphagia in setting of thyroid nodule both liquid and solid MODIFIED BARIUM SWALLOW (COOKIE SWALLOW) CLINICAL INDICATION: Dysphagia. Concern for aspiration COMPARISON: None. FLUOROSCOPY DOSE: Ka,r= 9.38 mGy TECHNIQUE: The procedure was performed in conjunction with speech therapy. Barium mixtures of various consistencies were given under fluoroscopy with the patient in the sitting lateral position. FINDINGS: Preparatory phase shows decreased dentition. Oral phase and pharyngeal phases are both unremarkable. There is no convincing laryngeal penetration or airway aspiration. IMPRESSION: No convincing laryngeal penetration or airway aspiration. Please refer to the speech pathologist's report for additional comments and recommendation Report Dictated on Electronically Signed By: Edgardo Lorenz MD Electronically Signed Date/Time: 10/06/2024 9:30 AM EDT Normal [facility] Laboratory - Chemistry and C hemistry - challengeon 10-06-2024 Glucose [Mass/Vol] 206 mg/dL High 70 - 100 mg/dL [facility] Glucose [Mass/Vol] 113 mg/dL High 70 - 100 mg/dL [facility] Magnesium [Mass/Vol] 1.9 mg/dL 1.6 - 2 .6 mg/dL [facility] MAGNESIUMon 10-06-2024 Magnesium [Mass/Vol] 1.9 mg/dL Normal 1.6-2.6 [facility] Comment on above: Result Comment: LILIBETH Gramajo COMMENTS: Higher values can be expected in females during menses. Performed By: #### L [id number], [id number] #### Zoology Technical Officer: GUERDA WEBBER ([id number]) [facility] ([facility]) [address] [place] [address] Magnesium [Mass/Vol]on 10-06 Interpretation and review of laboratory results Normal [facility] Higher values can be expected in females during menses. [facility] No Panel Informationon 10-06 Pleural effusion was too small to safely tap at this time, thoracentesis was not performed. If pleural fluid labs are clinically indicated, recommend short-term interval follow-up with IR to reassess fluid collection and possibly reattempt procedure. Report Dictated on Electronically Signed By: Mirta Hardin PA-C Electronically Signed Date/Time: 10/06/2024 3:55 PM EDT [facility] Patient Name: KARINA FERNANDO : 1950 Exam Date/Time: 10/06/2024 08:32 Procedure: US GUIDED THORACENTESIS Ordering Provider: TAM CANDICE Reason For Exam: left pleural effusion CLINICAL INFORMATION: Pleural effusion. Possible thoracentesis. PROCEDURE: The patient was placed seated on the ultrasound cart. A limited ultrasound of the left thorax was performed. FINDINGS: Small loculated left pleural effusion. [facility] Mirta Hardin PA-C - 10/06/2024 Patient Name: KARINA FERNANDO : 1950 Exam Date/Time: 10/06/2024 08:32 Procedure: US GUIDED THORACENTESIS Ordering Provider: MOREHART, , SUSHILA Reason For Exam: left pleural effusion CLINICAL INFORMATION: Pleural effusion. Possible thoracentesis. PROCEDURE: The patient was placed seated on the ultrasound cart. A limited ultrasound of the left thorax was performed. FINDINGS: Small loculated left pleural effusion. IMPRESSION: Pleural effusion was too small to safely tap at this time, thoracentesis was not performed. If pleural fluid labs are clinically indicated, recommend short-term interval follow-up with IR to reassess fluid collection and possibly reattempt procedure. Report Dictated on Electronically Signed By: Mirta Hardin PA-C Electronically Signed Date/Time: 10/06/2024 3:55 PM EDT [facility] Interpretation and review of laboratory results Abnormal [facility] Performed by: [employer] [facility], [address] [place] [address] CLIA ID: [id number] [facility] Radiology Study observation (narrative) [facility] Interpretation and review of laboratory results Abnormal [facility] Performed by: [employer] [facility], [address] [place] [address] CLIA ID: [id number] [facility] No Panel InformationOrdered By: Mirta Hardin on 10-06-2024 [facility] Work Phone: Nursing Noteon 10-06-2024 Nursing Note Patient arrived to radiology department (dept) for ultrasound (US) guided thoracentesis. Nadege Hardin PA-C present to speak with patient. Informed consent obtained. Patient placed sitting on edge of bed/stretcher Baseline vital signs obtained. The patient does not have enough fluid in the appropriate space to drain safely per the provider noted above during preliminary scan. The ordered procedure is not able to be completed at this time. Patient taken to next procedure via patient bed. Report given via telephone to Fab Lawson RN. Normal [facility] Progress Noteon 10-06-2024 Progress Note Patient chart is reviewed. Currently rounding. Full note to follow. [facility] Progress Note Speech-Language Pathology SPEECH LANGUAGE PATHOLOGY [facility] Modified Barium Swallow Study Patient Name: Karina Fernando Evaluation Date: 10/06/2024 Date of : 1950 Admission Date: 10/05/2024 8:10 PM Age: 73 y.o. Room[facility]Bed: [facility] IMPRESSION: The patient presents with mild oral phase dysphagia associated with limited dentition. There is no pharyngeal phase dysphagia. There was no laryngeal penetration or aspiration observed. RECOMMENDATION: Recommend Regular solids and Thin liquids and meds as tolerated and the following precautions: - Upright positioning for all PO intake - Small bites/sips Penetration-Aspirati on Scale: 1. No contrast enters the airway. No further skilled HAT RENOVATOR indicated at this time. Please reconsult should changes occur. General Initial MBS completed to assess the efficiency of her swallow function, rule out aspiration, and make recommendations regarding safe dietary consistencies, effective compensatory strategies, and safe eating environment. Subjective: Patient alert and cooperative for evaluation. States she occasionally has trouble with solids, takes small bites which helps. She denies difficulty with liquids or medications. Patient very pleasant and with excellent direction following and participation. Radiologist: Dr. Lorenz/DEANDRE Bridges Prior MBSS?: No Baseline Diet: Regular Current diet: Dietary Orders (From admission, onward) Start Ordered 10/09/24 0001 NPO diet with enteral medications Diet effective midnight Question Answer Comment Medications? with enteral medications NPO except: Sips of Water 10/05/24200910/09/24 0001 NPO diet with enteral medications Diet effective midnight Question Answer Comment Medications? 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 Admission Diagnosis: Patient Active Problem List Diagnosis Date Noted Pleural effusion 10/05/2024 HLD (hyperlipidemia) History of nicotine use Hiatal hernia Hilar mass 08/19/2024 Right atrial mass 08/2024 Adenopathy 10/05/2024 Lung mass 10/05/2024 Pain: Pt denies any current pain. Reason for current admission: Karina is a 73 y.o. female with past medical history of COPD previous smoker, asthma, Hiatal hernia, Recent discovery of lung mass and thyroid nodules - with EBUS and thyroid biopsy scheduled in the next week, PET scan and other work up. She presented to [facility] ED - with worsening left shoulder, back and lung pain, also describes lightheadedness when going for sit to stand. She states that lately she has been having voice changes and difficulties swallowing with both liquid and solids, and has noticed some swelling - small lumps that come and go in her neck this all started In February. She feels that she has a worsening headache - which she attributes to all the cough she has done, She has a sensation of vertigo with a ringing in her left ear and sensation of falling to the left side. She was found to have a large left sided pleural effusion and was sent in for management to [facility]. She has a history of hiatal hernia and takes Protonix for heartburn once daily in the morning. She takes stool softeners daily, trazadone and melatonin to sleep She reports swelling in her legs since her thirties, which worsens with standing or hanging legs. The patient denies diarrhea, constipation, blood in urine or stools, difficulties urinating, burning, stinging, or recent weight changes. VS on arrival P 90, T 36.2, RR 18, BP 119/86, SpOw 93%, Unable to obtain labs and imaging from [place] - Was told she has a complete white out of her left lung field. Oral Phase Patient presents with adequate oral receipt of each bolus. There was no anterior bolus loss. There was appropriate bolus containment for each tested texture in the oral cavity. Mastication appeared complete but mildly prolonged given limited dentition - patient has dentures but states she cannot wear them when she's like this. Oral transit time was functional. There was no oral residue. Pharyngeal Phase Patient revealed timely swallow onset. Pharyngeal wall and tongue base strength were adequate, epiglottic deflection was complete, and hyolaryngeal elevation/excursion were adequate. No laryngeal pene (more content not included)... Normal [facility] RF videography Hypopharynx a nd Esophagus Views for swallowing function W speech and W barium contrast Luis Manuel 10-06-2024 No convincing laryngeal penetration or airway aspiration. Please refer to the speech pathologist's report for additional comments and recommendation Report Dictated on Electronically Signed By: Edgardo Lorenz MD Electronically Signed Date/Time: 10/06/2024 9:30 AM EDT [facility] Name[facility]AR[facility] 1950 [id number] Exam Date/Time: 10/06/2024 08:57 Procedure: FL MODIFIED BARIUM WITH VIDEO AND SPEECH Ordering Provider: TAM CANDICE Reason For Exam: dysphagia in setting of thyroid nodule both liquid and solid MODIFIED BARIUM SWALLOW (COOKIE SWALLOW) CLINICAL INDICATION: Dysphagia. Concern for aspiration COMPARISON: None. FLUOROSCOPY DOSE: Ka,r= 9.38 mGy TECHNIQUE: The procedure was performed in conjunction with speech therapy. Barium mixtures of various consistencies were given under fluoroscopy with the patient in the sitting lateral position. FINDINGS: Preparatory phase shows decreased dentition. Oral phase and pharyngeal phases are both unremarkable. There is no convincing laryngeal penetration or airway aspiration. [facility] Edgardo Lorenz MD - 10/06/2024 Patient Name: KARINA FERNANDO : 1950 Exam Date/Time: 10/06/2024 08:57 Procedure: FL MODIFIED BARIUM WITH VIDEO AND SPEECH Ordering Provider: TAM CANDICE Reason For Exam: dysphagia in setting of thyroid nodule both liquid and solid MODIFIED BARIUM SWALLOW (COOKIE SWALLOW) CLINICAL INDICATION: Dysphagia. Concern for aspiration COMPARISON: None. FLUOROSCOPY DOSE: Ka,r= 9.38 mGy TECHNIQUE: The procedure was performed in conjunction with speech therapy. Barium mixtures of various consistencies were given under fluoroscopy with the patient in the sitting lateral position. FINDINGS: Preparatory phase shows decreased dentition. Oral phase and pharyngeal phases are both unremarkable. There is no convincing laryngeal penetration or airway aspiration. IMPRESSION: No convincing laryngeal penetration or airway aspiration. Please refer to the speech pathologist's report for additional comments and recommendation Report Dictated on Electronically Signed By: Edgardo Lorenz MD Electronically Signed Date/Time: 10/06/2024 9:30 AM EDT [facility] Radiology Study observation (narrative) [facility] alth RF videography Hypopharynx a nd Esophagus Views for swallowing function W speech and W barium contrast POOrdered By: Edgardo Lorenz on 10-06-2024 [facility] Work Phone: US GUIDED THORACENTESISon US GUIDED THORACENTESIS Patient Name: KARINA BARRON CAS : 1950 Exam Date/Time: 10/06/2024 08:32 Procedure: US GUIDED THORACENTESIS Ordering Provider: TAM CANDICE Reason For Exam: left pleural effusion CLINICAL INFORMATION: Pleural effusion. Possible thoracentesis. PROCEDURE: The patient was placed seated on the ultrasound cart. A limited ultrasound of the left thorax was performed. FINDINGS: Small loculated left pleural effusion. IMPRESSION: Pleural effusion was too small to safely tap at this time, thoracentesis was not performed. If pleural fluid labs are clinically indicated, recommend short-term interval follow-up with IR to reassess fluid collection and possibly reattempt procedure. Report Dictated on Electronically Signed By: Mirta Hardin PA-C Electronically Signed Date/Time: 10/06/2024 3:55 PM EDT Normal [facility] XR CHEST 2 VIEWSon XR CHEST 2 VIEWS Patient Name: KARINA FERNANDO : 1950 Exam Date/Time: 10/06/2024 08:54 Procedure: XR CHEST 2 VIEWS Ordering Provider: TAM CANDICE Reason For Exam: Pleural effusion CHEST X-RAY PA/LATERAL CLINICAL INDICATION: Pleural effusion. Patient with known left perihilar mass. TECHNIQUE: Frontal and lateral plain films of the chest were obtained. COMPARISON: CTA chest 10/05/2024 outside facility IMPRESSION: FINDINGS/IMPRESSION: Limitations: Patient positioning/rotation Lines, tubes, and devices: None. Cardiomediastinal silhouette: Severe leftward mediastinal shift similar to prior study. Lungs/Pleura: Near complete opacification of the left hemithorax in part reflecting patient's known left perihilar mass with suspected postobstructive change involving the lingula and left lower lobe. Suspect small left pleural effusion. Moderate to large hiatal hernia. No pneumothorax. Osseous structures: Degenerative spondylosis in the visualized spine. Soft tissues: No soft tissue abnormality is detected. Report Dictated on Electronically Signed By: Eric Haq MD Electronically Signed Date/Time: 10/06/2024 10:43 AM EDT [facility] XR Chest 2 Viewson FINDINGS/IMPRESSION: Limitations: Patient positioning/rotation Lines, tubes, and devices: None. Cardiomediastinal silhouette: Severe leftward mediastinal shift similar to prior study. Lungs/Pleura: Near complete opacification of the left hemithorax in part reflecting patient's known left perihilar mass with suspected postobstructive change involving the lingula and left lower lobe. Suspect small left pleural effusion. Moderate to large hiatal hernia. No pneumothorax. Osseous structures: Degenerative spondylosis in the visualized spine. Soft tissues: No soft tissue abnormality is detected. Report Dictated on Electronically Signed By: Eric Haq MD Electronically Signed Date/Time: 10/06/2024 10:43 AM [facility] Patient Name: KARINA FERNANDO : 1950 Exam Date/Time: 10/06/2024 08:54 Procedure: XR CHEST 2 VIEWS Ordering Provider: TAM CANDICE Reason For Exam: Pleural effusion CHEST X-RAY PA/LATERAL CLINICAL INDICATION: Pleural effusion. Patient with known left perihilar mass. TECHNIQUE: Frontal and lateral plain films of the chest were obtained. COMPARISON: CTA chest 10/05/2024 outside facility [facility] Dedrick Haq MD - 10/06/2024 Patient Name: KARINA FERNANDO : 1950 Exam Date/Time: 10/06/2024 08:54 Procedure: XR CHEST 2 VIEWS Ordering Provider: TAM CANDICE Reason For Exam: Pleural effusion CHEST X-RAY PA/LATERAL CLINICAL INDICATION: Pleural effusion. Patient with known left perihilar mass. TECHNIQUE: Frontal and lateral plain films of the chest were obtained. COMPARISON: CTA chest 10/05/2024 outside facility IMPRESSION: FINDINGS/IMPRESSION: Limitations: Patient positioning/rotation Lines, tubes, and devices: None. Cardiomediastinal silhouette: Severe leftward mediastinal shift similar to prior study. Lungs/Pleura: Near complete opacification of the left hemithorax in part reflecting patient's known left perihilar mass with suspected postobstructive change involving the lingula and left lower lobe. Suspect small left pleural effusion. Moderate to large hiatal hernia. No pneumothorax. Osseous structures: Degenerative spondylosis in the visualized spine. Soft tissues: No soft tissue abnormality is detected. Report Dictated on Electronically Signed By: Eric Haq MD Electronically Signed Date/Time: 10/06/2024 10:43 AM EDT [facility] Radiology Study observation (narrative) [facility] vaibhav XR Chest 2 ViewsOrdered By: Dedrick Haq on 10-06-2024 [facility] Work Phone: [phone] 10-05-[id number] to find out Formulary alternative. Normal [facility] 12 Lead EKGon 10-05-2024 12 Lead EKG Normal [facility] 36on 10-05-2024 36 Genaro explains her and her Mother are at [facility] ER. Told by the Dr her Mother isn't leaving anytime soon. Her Mother had a CXR and her L lung was completely white. They are now waiting on CT results. Her Mother will eventually be transferred over to [facility] when a bed opens. Explains Her Mother wants back on Symbicort. Normal [facility] 36 Patient is active with Donald PENDLETON and MORIA for EBUS/ENB 41874/61544 per code check Normal [facility] 36 Diaz notified. Said She is going to take her Mom to the ER here shortly.Needs to discuss with her Mother what to do with the Symbicort and will let us know. Normal [facility] 36 Instructions EBUS Endobronchial Ultrasound Procedure Date: October 09, 2024 Time: 1:30 PM Arrival Time: 12:00 PM Physician: Dr. Mejia Location: [facility], Endoscopy Department, [address] [place], [place] [id number] Please arrive at the hospital registration desk 1.5 hours prior to scheduled start of procedure. Make sure you have a known responsible adult to transport you home from the hospital as you will not be permitted to drive. Your procedure will be cancelled if you do not have someone to take you home. You can only use a taxi/bus/Uber/medica l coroner transport technician if you have a known responsible adult to go with you. You may use [employer]. Each patient will receive one validation ticket for [employer]. Do not drink alcohol before or after your procedure. No smoking of any kind and no chewing tobacco six hours prior to your procedure. If you experience any fever/sick symptoms prior to procedure, please call the nurse. Bring your insurance card and photo ID with you. 8 hours prior to scheduled procedure (5:30 AM) is the cut off for solid foods or thick liquids. You may have clear liquids (black coffee or tea without creamer, water, soda, broth and any juices you can see through without pulp until 2 hours (11:30) prior to your scheduled start. Any blood thinning medications like Coumadin, Warfarin, Jantoven, Effient, Eliquis, Xarelto, Pradaxa, Pletal, Plavix, Bilinta, Heparin, Lovenox, Fragmin and Aspirin may need to be held prior to the procedure. Contact the nurse if you take any of these medications. Please refrain from taking any Aspirin and/or non-steroidal anti-inflammatory medications (i.e. Advil, Aleve, Ibuprofen, Motrin, Naprosyn, Naproxen, Voltaren, Diclofenac, Celebrex, Mobic, Meloxicam) for 5 days prior to procedure. Tylenol (acetaminophen) is safe to use prior to procedure. If you are diabetic, please contact your physician that manages your medications and/or insulin for any adjustments that may be needed while you are on clear liquids then fasting for the majority of the day until after your procedure. Other medications can be taken as usual up to 2 hours (11:30 AM) prior as long as you are able to tolerate them on an empty stomach. Nothing by mouth after 11:30 AM. From registration you will go to the endoscopy unit, the staff there will get you checked in and start an intravenous catheter (IV). Our Anesthesia Team will ask you some health history questions prior and will be there to monitor you for the duration of your procedure. Dr. Mejia will be available to speak with you prior to your procedure in case you have any questions. The procedure itself usually lasts about 1.5 hours and you will be asleep the entire time. After the procedure you will be taken to the recovery area for monitoring. The procedure is planned as outpatient, and you will be discharged the same day. Estimated time at the hospital ranges from 3-4 hours the day of the procedure. The physician will use a small, flexible scope to go through your mouth and into the lung to sample the area(s) that were discussed with you. The scope has a channel that tools are inserted in to biopsy, collect specimens and/or wash the particular area. The physician will discuss any initial findings post procedure at the hospital with you. Final results typically come back within a week and a follow up will be scheduled based on the physician's recommendation. You are scheduled for a follow up appointment October 17, 2024 at 11:[address] Johnson at [address] [place] [address] [address], [place], [address] to discuss results. Things to look for post procedure: Fever greater than 101F Coughing up/spitting up bright red blood greater than a teaspoon Increased Shortness of breath/distress and/ or sudden onset of chest pain (call 911 and head to the nearest emergency department) You will be sent home with discharge instructions. You can eat and drink as tolerated post procedure. You may experience some fatigue, irritation of the throat, increased coughing, and/or pink-blood tinged mucus after the procedure. This is normal and be expected to last about 24-48 hours. Over the counter medications such as lozenges, cough drops, chloraseptic sprays can help these symptoms. If you have any questions, please call: [phone] RN Clinical Coordinator [facility]monary [facility] [address] [place] [address], [address] [place] [address] Procedure placed on physician's outlook calendar? yes Does patient take blood thinners? No Does patient take ASA?No Does patient take NSAIDS? No States not taking Mobic Does patient take diabetic medications? No Does patient take GLP1 meds? No Does patient have Pacemaker, defibrillator, life vest, other implants? No Recent illness or covid exposure? No Chance of ? No Patient aware will need transportation home from hospital? Yes Patient instructed t (more content not included)... Normal [facility] 36 Chief complaint/symptom: Pt's Daughter, Diaz explains her Mother started Trelegy earlier in the day yesterday. That night her Mother developed an 8/10 pain in the middle of her chest at the bra line and in her back of L shoulder. Explains cancer is suspected in her Mothers L lung and she's supposed to get an Ebus. Doesn't know If her Mothers condition has worsened or this is from the Trelegy. Cough: Dry cough, which worsened since last appointment. SOB: Hasn't worsened since being in office but her Mother sounded winded to her on the phone. Believes her Mother just exerted herself Are you on Oxygen: None Her Mother checked her SP02 and It was reading 93%. B/P was 131/86 Has been using Nebs as directed, Trelegy & Albuterol Rescue inhaler. Last visit with a pulmonary provider: 10/03/24 Current recommendations: Instructed Diaz to have her Mother monitor her SP02 levels and If her Mothers breathing becomes compromised to dial 911 prior to advisement. Normal [facility] Absolute lymphocyte countOrd ered By: Marty Woods on 10-05-2024 Lymphocytes Auto (Unsp spec) [#/Vol] 1.10 10*3/uL 0.83-4.51 [facility] Absolute neutrophil countOrd ered By: Marty Woods on 10-05-2024 Neutrophils (Bld) [#/Vol] 3.0 10*3/uL 2.0-7.7 [facility] Activated partial thrombopla stin time (aPTT) in platelet poor plasma by coagulation aOrdered By: Marty Woods on 10-05-2024 aPTT Coag (PPP) [Time] 22.2 s Low 24.1-36.2 [facility] Anion gap in Serum or Plasma Ordered By: Marty Woods on 10-05-2024 Anion gap [Moles/Vol] 14 mmol/L 11-30 [facility] Automated lymphocyte count a s percentage of total leukocytesOrdered By: Marty Woods on 10-05-2024 Lymphocytes/100 WBC Auto (Unsp spec) 23.3 % [facility] BUN/creatinine ratioOrdered By: Marty Woods on 10-05-2024 Urea nitrogen/Creatinine [Mass ratio] 10.0 mg/mg - [facility] Basophil percentageOrdered B y: Marty Woods on 10-05-2024 Basophils/100 WBC (Bld) 0.4 % 0-1 [facility] Bilirubin, totalOrdered By: Marty Woods on 10-05-2024 Bilirubin [Mass/Vol] 0.17 mg/dL 0.00-1.30 [facility] Blood cultureOrdered By: Oj Woods on 10-05-2024 Bacteria identified Cx Nom (Bld) No growth in 5 days. [facility] Bacteria identified Cx Nom (Bld) No growth in 5 days. [facility] CBC W/Diff, Automatedon 09-17 Absolute Lymph 1.10 X10 3/uL Normal 0.83-4.51 [facility] Comment on above: Performed By: #### L 500.4050, L300.3900, L503.6005, L100.0100, L300.4310, M200.1000 ####[facility] [address] [place], [address] Absolute Neut 3.0 X10 3/uL Normal 2.0-7.7 [facility] Comment on above: Performed By: #### L 500.4050, L300.3900, L503.6005, L100.0100, L300.4310, M200.1000 ####[facility] [address] [place], [address] Basophils/100 WBC (Bld) 0.4 % Normal 0-1 [facility] Comment on above: Performed By: #### L 500.4050, L300.3900, L503.6005, L100.0100, L300.4310, M200.1000 ####[facility] [address] [place], [address] Eosinophils/100 WBC (Bld) 0.0 % Normal 0-5 [facility] Comment on above: Performed By: #### L 500.4050, L300.3900, L503.6005, L100.0100, L300.4310, M200.1000 ####[facility] [address] [place], [address] Erythrocyte distribution width (RBC) [Ratio] 19.0 % High 11.6-14.6 [facility] Comment on above: Performed By: #### L 500.4050, L300.3900, L503.6005, L100.0100, L300.4310, M200.1000 ####[facility] [address] [place], [address] Hematocrit (Bld) [Volume fraction] 39.2 % Normal 37-47 [facility] Comment on above: Performed By: #### L 500.4050, L300.3900, L503.6005, L100.0100, L300.4310, M200.1000 ####[facility] [address] [place], [address] Hemoglobin (Bld) [Mass/Vol] 12.3 g/dL Normal 12.0-15.0 [facility] Comment on above: Performed By: #### L 500.4050, L300.3900, L503.6005, L100.0100, L300.4310, M200.1000 ####[facility] [address] [place], [address] IG% 0.200 Normal 0.0-0.9 [facility] Comment on above: Result Comment: IG% - Immature Granulocytes (promyelocytes, myelocytes andmetamyelocytes) > 1% indicates that a LEFT SHIFT is Present. Performed By: #### L 500.4050, L300.3900, L503.6005, L100.0100, L300.4310, M200.1000 ####[facility] [address] [place], [address] Lymphocytes/100 WBC (Bld) 23.3 % Normal 19-41 [facility] Comment on above: Performed By: #### L 500.4050, L300.3900, L503.6005, L100.0100, L300.4310, M200.1000 ####[facility] [address] [place], [address] MCH (RBC) [Entitic mass] 25.6 pg Low 27.0-32.0 [facility] Comment on above: Performed By: #### L 500.4050, L300.3900, L503.6005, L100.0100, L300.4310, M200.1000 ####[facility] [address] [place], [address] MCHC (RBC) [Mass/Vol] 31.4 g/dL Low 32-36 [facility] Comment on above: Performed By: #### L 500.4050, L300.3900, L503.6005, L100.0100, L300.4310, M200.1000 ####[facility] [address] [place], [address] MCV (RBC) [Entitic vol] 81.7 fL Normal 81-99 [facility] Comment on above: Performed By: #### L 500.4050, L300.3900, L503.6005, L100.0100, L300.4310, M200.1000 ####[facility] [address] [place], [address] Monocytes/100 WBC (Bld) 12.9 % High 0-10 [facility] Comment on above: Performed By: #### L 500.4050, L300.3900, L503.6005, L100.0100, L300.4310, M200.1000 ####[facility] [address] [place], [address] Neutrophils/100 WBC (Bld) 63.2 % Normal 47-70 [facility] Comment on above: Performed By: #### L 500.4050, L300.3900, L503.6005, L100.0100, L300.4310, M200.1000 ####[facility] [address] [place], [address] Nucleated RBC (Bld) [#/Vol] 0 10*3/uL Normal 0-5 [facility] Comment on above: Performed By: #### L 500.4050, L300.3900, L503.6005, L100.0100, L300.4310, M200.1000 ####[facility] [address] [place], [address] Platelet mean volume (Bld) [Entitic vol] 8.8 fL Normal 6.2-12.0 [facility] Comment on above: Performed By: #### L 500.4050, L300.3900, L503.6005, L100.0100, L300.4310, M200.1000 ####[facility] [address] [place], [address] Platelets (Bld) [#/Vol] 278 10*3/uL Normal 150-450 [facility] Comment on above: Performed By: #### L 500.4050, L300.3900, L503.6005, L100.0100, L300.4310, M200.1000 ####[facility] [address] [place], [address] RBC (Bld) [#/Vol] 4.80 10*6/uL Normal 4.2-5.4 [facility] Comment on above: Performed By: #### L 500.4050, L300.3900, L503.6005, L100.0100, L300.4310, M200.1000 ####[facility] [address] [place], [place], [phone] RDW SD 56.2 fl High 35.1-43.9 [facility] Comment on above: Performed By: #### L 500.4050, L300.3900, L503.6005, L100.0100, L300.4310, M200.1000 ####[facility] [address] [place], [place], [phone] WBC (Bld) [#/Vol] 4.7 10*3/uL Normal 4.4-11.0 [facility] Comment on above: Performed By: #### L 500.4050, L300.3900, L503.6005, L100.0100, L300.4310, M200.1000 ####[facility] [address] [place], [place], [id number] CTA Chest W/WO Contraston CTA Chest W/WO Contrast Normal [facility] [place] Carbon dioxide, total [Moles /volume] in Central venous bloodOrdered By: Marty Woods on 10-05-2024 CO2 [Moles/Vol] 25.1 mmol/L 21.0-32.0 [facility] Chest PA and Lateralon 10-05 Chest PA and Lateral Normal [facility] Chloride assayOrdered By: Lopez Woods on 10-05-2024 Chloride [Moles/Vol] 102 mmol/L 98-108 [facility] Comprehensive Metabolic Prof ilon 10-05-2024 Albumin [Mass/Vol] 4.2 g/dL Normal 3.4-4.8 [facility] Comment on above: Performed By: #### L 500.4050, L300.3900, L503.6005, L100.0100, L300.4310, M200.1000 ####[facility] [address] [place], [address] Albumin/Globulin [Mass ratio] 1.4 {ratio} Normal 0.9-2.4 [facility] Comment on above: Performed By: #### L 500.4050, L300.3900, L503.6005, L100.0100, L300.4310, M200.1000 ####[facility] [address] [place], [address] ALK PHOS 57 U/L Normal 35-104 [facility] Comment on above: Performed By: #### L 500.4050, L300.3900, L503.6005, L100.0100, L300.4310, M200.1000 ####[facility] [address] [place], [address] ALT [Catalytic activity/Vol] 11 U/L Normal <=34 [facility] Comment on above: Performed By: #### L 500.4050, L300.3900, L503.6005, L100.0100, L300.4310, M200.1000 ####[facility] [address] [place], [address] AST [Catalytic activity/Vol] 20 U/L Normal <=31 [facility] Comment on above: Performed By: #### L 500.4050, L300.3900, L503.6005, L100.0100, L300.4310, M200.1000 ####[facility] [address] [place], [address] Bilirubin [Mass/Vol] 0.17 mg/dL Normal 0.00-1.30 [facility] Comment on above: Performed By: #### L 500.4050, L300.3900, L503.6005, L100.0100, L300.4310, M200.1000 ####[facility] [address] [place], [address] BUN/CRE 10.0 RATIO Normal 10-20 [facility] Comment on above: Performed By: #### L 500.4050, L300.3900, L503.6005, L100.0100, L300.4310, M200.1000 ####[facility] [address] [place], [address] Calcium [Mass/Vol] 9.6 mg/dL Normal 7.6-11.0 [facility] Comment on above: Performed By: #### L 500.4050, L300.3900, L503.6005, L100.0100, L300.4310, M200.1000 ####[facility] [address] [place], [address] Chloride [Moles/Vol] 102 mmol/L Normal 98-108 [facility] Comment on above: Performed By: #### L 500.4050, L300.3900, L503.6005, L100.0100, L300.4310, M200.1000 ####[facility] [address] [place], [address] CO2 [Moles/Vol] 25.1 mmol/L Normal 21.0-32.0 [facility] Comment on above: Performed By: #### L 500.4050, L300.3900, L503.6005, L100.0100, L300.4310, M200.1000 ####[facility] [address] [place], [address] Creatinine [Mass/Vol] 0.99 mg/dL Normal 0.70-1.20 [facility] Comment on above: Performed By: #### L 500.4050, L300.3900, L503.6005, L100.0100, L300.4310, M200.1000 ####[facility] [address] [place], [address] ECRCL 49.48 ml/min Low 50-250 [facility] Comment on above: Performed By: #### L 500.4050, L300.3900, L503.6005, L100.0100, L300.4310, M200.1000 ####[facility] [address] [place], [address] GAP 14 Normal 5-15 [facility] Comment on above: Performed By: #### L 500.4050, L300.3900, L503.6005, L100.0100, L300.4310, M200.1000 ####[facility] [address] [place], [address] GFR/1.73 sq M.predicted among non-blacks MDRD (S/P/Bld) [Vol rate/Area] 61 mL/min/{1.73_m2} Normal >60 [facility] Comment on above: Result Comment: mL/m in/1.73m2 CKD-EPI Creatinine Equation (2020) Performed By: #### L 500.4050, L300.3900, L503.6005, L100.0100, L300.4310, M200.1000 ####[facility] [address] [place], [address] Globulin (S) [Mass/Vol] 3.0 g/dL Normal 2.2-4.2 [facility] Comment on above: Performed By: #### L 500.4050, L300.3900, L503.6005, L100.0100, L300.4310, M200.1000 ####[facility] [address] [place], [address] Glucose [Mass/Vol] 107 mg/dL High 70-99 [facility] Comment on above: Performed By: #### L 500.4050, L300.3900, L503.6005, L100.0100, L300.4310, M200.1000 ####[facility] [address] [place], [address] Potassium [Moles/Vol] 3.3 mmol/L Normal 3.3-5.1 [facility] Comment on above: Performed By: #### L 500.4050, L300.3900, L503.6005, L100.0100, L300.4310, M200.1000 ####[facility] [address] [place], [address] Sodium [Moles/Vol] 141 mmol/L Normal 133-145 [facility] Comment on above: Performed By: #### L 500.4050, L300.3900, L503.6005, L100.0100, L300.4310, M200.1000 ####[facility] [address] [place], [address] T PROT 7.2 g/dL Normal 5.9-8.4 [facility] Comment on above: Performed By: #### L 500.4050, L300.3900, L503.6005, L100.0100, L300.4310, M200.1000 ####[facility] [address] [place], [address] Urea nitrogen [Mass/Vol] 10 mg/dL Normal 4-19 [facility] Comment on above: Performed By: #### L 500.4050, L300.3900, L503.6005, L100.0100, L300.4310, M200.1000 ####[facility] [address] [place], [address] Emergency Department Summary on 10-05-2024 Emergency Department Summary Normal [facility] Eosinophil percentageOrdered By: Marty Woods on 10-05-2024 Eosinophils/100 WBC (Bld) 0.0 % 0-5 [facility] Erythrocyte distribution wid th ratioOrdered By: Marty Woods on 10-05-2024 Erythrocyte distribution width (RBC) [Ratio] 19.0 % High 11.6-14.6 [facility] Erythrocyte distribution wid th standard deviationOrdered By: Marty Woods on 10-05-2024 Erythrocyte distribution width (RBC) [Entitic vol] 56.2 fL High 35.1-43.9 [facility] Erythrocyte distribution width (RBC) [Ratio] 56.2 fl High 35.1-43.9 [facility] Estimation of creatinine nikki aranceOrdered By: Marty Woods on 10-05-2024 Estimated Creatinine Clearance Calc 49.48 ml/min Low 50-250 [facility] GFR/1.73 sq M.predicted ty g non-blacks MDRD (S/P/Bld) [Vol rate/Area]Ordered By: Marty Woods on 10-05-2024 Estimated GFR (MDRD) Non-Af Amer 61 >60 [facility] Comment on above: mL/min/1.73m2 CKD-EP I Creatinine Equation (2020) Glomerular filtration rate ( GFR) estimation/1.73 sq m using serum, plasma, or whole bOrdered By: Marty Woods on 10-05-2024 GFR/1.73 sq M.predicted among non-blacks MDRD (S/P/Bld) [Vol rate/Area] 61 mL/min/{1.73_m2} >60 [facility] Comment on above: mL/min/1.73m2 CKD-EP I Creatinine Equation (2020) Hematocrit Auto (Bld) [Volum e fraction]Ordered By: Marty Woods on 10-05-2024 Hematocrit (Bld) [Volume fraction] 39.2 % 37-47 [facility] Hemoglobin measurementOrdere d By: Marty Woods on 10-05-2024 Hemoglobin (Bld) [Mass/Vol] 12.3 g/dL 12.0-15.0 [facility] Immature granulocytes/100 WB C Auto (Bld)Ordered By: Marty Woods on 10-05-2024 Immature granulocytes/100 WBC (Bld) 0.200 % 0.0-0.9 [facility] Comment on above: IG% - Immature Granu locytes (promyelocytes, myelocytes and metamyelocytes) > 1% indicates that a LEFT SHIFT is Present. Influenza virus A and B and SARS-CoV-2 (COVID-19) and Respiratory syncytial virus RNAOrdered By: Marty Woods on 10-05-2024 SARS-CoV-2 (COVID-19) RNA MIGUE+probe Ql (Unsp spec) [facility] International normalized rat io (INR) calculationOrdered By: Marty Woods on 10-05-2024 INR Coag (Bld) [Relative time] 1.0 {INR} [facility] L499.0042on 10-05-2024 Trop T High Sen 16 ng/L High <=14 [facility] Comment on above: Performed By: #### L 499.0042 ####[facility] [address] [place], [address] L499.0043on 10-05-2024 Trop T High Sen Normal <=14 [facility] Comment on above: Result Comment: PT D ISCHARGED Performed By: #### L 499.0043 ####[facility] [address] [place], [address] L501.4021on 10-05-2024 Trop T High Sen 17 ng/L High <=14 [facility] Comment on above: Performed By: #### L 501.4021 ####[facility] [address] [place], [address] L503.7505on 10-05-2024 Natriuretic peptide B (Bld) [Mass/Vol] 166 pg/mL Normal <=900 [facility] Comment on above: Result Comment: Hear t Failure Unlikely: < 300 pg/mLHeart Failure Likely< 50 Years: > 450 pg/mL50-75 Years: > 900 pg/mL>75 Years: > 1800 pg/mL Performed By: #### L 503.7505 ####[facility] [address] [place], [address] Laboratory - Chemistry and C hemistry - challengeOrdered By: Marty Woods on 10-05-2024 Natriuretic peptide B (Bld) [Mass/Vol] 166 pg/mL <900 [facility] Comment on above: Heart Failure Unlike ly: < 300 pg/mLHeart Failure Likely< 50 Years: > 450 pg/mL50-75 Years: > 900 pg/mL>75 Years: > 1800 pg/mL AST [Catalytic activity/Vol] 20 U/L <32 [facility] Lactic Acidon 10-05-2024 Lactate [Moles/Vol] 1.4 mmol/L Normal 0.0-2.0 [facility] Comment on above: Order Comment: Y Performed By: #### L 500.4050, L300.3900, L503.6005, L100.0100, L300.4310, M200.1000 ####[facility] [address] [place], [address] Lactic acid measurementOrder ed By: Marty Woods on 10-05-2024 Lactate [Moles/Vol] 1.4 mmol/L 0.0-2.0 [facility] Lymphocytes Auto (Unsp spec) [#/Vol]Ordered By: Marty Woods on 10-05-2024 Lymphocytes (Bld) [#/Vol] 1.10 10*3/uL 0.83-4.51 [facility] Lymphocytes/100 WBC Auto (Un sp spec)Ordered By: Marty Woods on 10-05-2024 Lymphocytes/100 WBC (Bld) 23.3 % 19-41 [facility] M100.678on 10-05-2024 M100.678 Pending SARS-CoV-2 (COVID 19) Negative INFLUENZA A Negative INFLUENZA B Negative RSV PCR Negative Normal [facility] Comment on above: Performed By: #### M 100.678, L400.0001 ####[facility] [address] [place], [address] MCV (mean corpuscular volume ) determinationOrdered By: Marty Woods on 10-05-2024 MCV (RBC) [Entitic vol] 81.7 fL 81-99 [facility] [place] Mean corpuscular hemoglobin (MCH) determinationOrdered By: Marty Woods on 10-05-2024 MCH (RBC) [Entitic mass] 25.6 pg Low 27.0-32.0 [facility] Mean corpuscular hemoglobin concentration (MCHC) determinationOrdered By: Marty Woods on 10-05-2024 MCHC (RBC) [Mass/Vol] 31.4 g/dL Low 32-36 [facility] Mean platelet volume determi nationOrdered By: Marty Woods on 10-05-2024 Platelet mean volume (Bld) [Entitic vol] 8.8 fL 6.2-12.0 [facility] Monocyte percentageOrdered B y: Marty Woods on 10-05-2024 Monocytes/100 WBC (Bld) 12.9 % High 0-10 [facility] [place] Neutrophil percentageOrdered By: Marty Woods on 10-05-2024 Neutrophils/100 WBC (Bld) 63.2 % 47-70 [facility] No Panel InformationOrdered By: Marty Woods on 10-05-2024 Troponin T High Sensitivity 17 ng/L High <14 [facility] Comment on above: Delta: 19 on 5-1704 Nucleated red blood cell per centageOrdered By: Marty Woods on 10-05-2024 Nucleated RBC/100 WBC (Bld) [Ratio] 0 % 0-5 [facility] Partial Thromboplast Timeon 10-05-2024 aPTT Coag (Bld) [Time] 22.2 s Low 24.1-36.2 [facility] Comment on above: Performed By: #### L 500.4050, L300.3900, L503.6005, L100.0100, L300.4310, M200.1000 ####[facility] [address] [facility] [place], [address] Platelet countOrdered By: Lopez Woods on 10-05-2024 Platelets (Bld) [#/Vol] 278 10*3/uL 150-450 [facility] Potassium (Unsp spec) [Mass/ Vol]Ordered By: Marty Woods on 10-05-2024 Potassium [Moles/Vol] 3.3 mmol/L 3.3-5.1 [facility] Potassium measurement (mass/ volume)Ordered By: Marty Woods on 10-05-2024 Potassium (Unsp spec) [Mass/Vol] 3.3 mmol/L 3.3-5.1 [facility] Prothrombin Time w/INRon INR Coag (PPP) [Relative time] 1.0 {INR} Normal [facility] Comment on above: Performed By: #### L 500.4050, L300.3900, L503.6005, L100.0100, L300.4310, M200.1000 ####[facility] [address] [place], [place], [id number] PT Coag (PPP) [Time] 12.9 s Normal 11.7-14.9 [facility] Comment on above: Performed By: #### L 500.4050, L300.3900, L503.6005, L100.0100, L300.4310, M200.1000 ####[facility] [address] [place], [place], [id number] Prothrombin timeOrdered By: Marty Woods on 10-05-2024 PT Coag (PPP) [Time] 12.9 s 11.7-14.9 [facility] RBC Auto (Bld) [#/Vol]Ordere d By: Marty Woods on 10-05-2024 RBC (Bld) [#/Vol] 4.80 10*6/uL 4.2-5.4 [facility] Serum creatinine measurement (mass/volume)Ordered By: Marty Woods on 10-05-2024 Creatinine [Mass/Vol] 0.99 mg/dL 0.70-1.20 [facility] Serum globulin measurementOr dered By: Marty Woods on 10-05-2024 Globulin (S) [Mass/Vol] 3.0 g/dL 2.2-4.2 [facility] Serum glucose measurement (m ass/volume)Ordered By: Marty Woods on 10-05-2024 Glucose [Mass/Vol] 107 mg/dL High 70-99 [facility] Serum or plasma alanine vicente otransferase (ALT) measurementOrdered By: Marty Woods on 10-05-2024 ALT [Catalytic activity/Vol] 11 U/L <35 [facility] Serum or plasma albumin usman urement (mass/volume)Ordered By: Marty Woods on 10-05-2024 Albumin [Mass/Vol] 4.2 g/dL 3.4-4.8 [facility] Serum or plasma albumin/glob ulin mass ratioOrdered By: Marty Woods on 10-05-2024 Albumin/Globulin [Mass ratio] 1.4 {ratio} 0.9-2.4 [facility] Serum or plasma alkaline marcela sphatase measurementOrdered By: Marty Woods on 10-05-2024 ALP [Catalytic activity/Vol] 57 U/L 35-104 [facility] Serum or plasma calcium usman urement (mass/volume)Ordered By: Marty Woods on 10-05-2024 Calcium [Mass/Vol] 9.6 mg/dL 7.6-11.0 [facility] Serum or plasma urea nitroge n measurement (mass/volume)Ordered By: Marty Woods on 10-05-2024 Urea nitrogen [Mass/Vol] 10 mg/dL 4-19 [facility] Sodium levelOrdered By: Deejay Woods on 10-05-2024 Sodium [Moles/Vol] 141 mmol/L 133-145 [facility] Total proteinOrdered By: Oj Woods on 10-05-2024 Protein [Mass/Vol] 7.2 g/dL 5.9-8.4 [facility] Troponin T.cardiac High sens itivity method [Mass/Vol]Ordered By: Marty Woods on 10-05-2024 Troponin T High Sensitivity 2 Hour 16 ng/L High <14 [facility] Troponin T.cardiac [Mass/vol ume] in Serum or Plasma by High sensitivity methodOrdered By: Marty Woods on 10-05-2024 Troponin T.cardiac High sensitivity method [Mass/Vol] 16 ng/L High <14 [facility] Urinalysis, Completeon 10-05 BACTERIA Normal None Seen [facility] Comment on above: Order Comment: CLEAN CATCH Result Comment: Canc elled via OM: Ordered Performed By: #### M 100.678, L400.0001 ####[facility] [address] [place], [address] BILIRUBIN URINE Normal Negative [facility] Comment on above: Order Comment: CLEAN CATCH Result Comment: Canc elled via OM: MD Ordered Performed By: #### M 100.678, L400.0001 ####[facility] [address] [place], [address] Clarity (U) Normal Clear [facility] Comment on above: Order Comment: CLEAN CATCH Result Comment: Canc elled via OM: MD Ordered Performed By: #### M 100.678, L400.0001 ####[facility] [address] [place], [address] Color (U) Normal Yellow [facility] Comment on above: Order Comment: CLEAN CATCH Result Comment: Canc elled via OM: MD Ordered Performed By: #### M 100.678, L400.0001 ####[facility] [address] [place], [address] EPI,SQUAMOUS Normal 5-10 [facility] Comment on above: Order Comment: CLEAN CATCH Result Comment: Canc elled via OM: MD Ordered Performed By: #### M 100.678, L400.0001 ####[facility] [address] [place], [address] GLUCOSE, UR Normal Normal [facility] Comment on above: Order Comment: CLEAN CATCH Result Comment: Canc elled via OM: MD Ordered Performed By: #### M 100.678, L400.0001 ####[facility] [address] [place], [address] KETONE UR Normal Negative [facility] Comment on above: Order Comment: CLEAN CATCH Result Comment: Canc elled via OM: MD Ordered Performed By: #### M 100.678, L400.0001 ####[facility] [address] [place], [address] LEUK ESTERASE Normal Negative [facility] Comment on above: Order Comment: CLEAN CATCH Result Comment: Canc elled via OM: MD Ordered Performed By: #### M 100.678, L400.0001 ####[facility] [address] [place], [address] Mucus Ql (Urine sed) Normal [facility] Comment on above: Order Comment: CLEAN CATCH Result Comment: Canc elled via OM: MD Ordered Performed By: #### M 100.678, L400.0001 ####[facility] [address] [place], [address] Nitrite Ql (U) Normal Negative [facility] Comment on above: Order Comment: CLEAN CATCH Result Comment: Canc elled via OM: MD Ordered Performed By: #### M 100.678, L400.0001 ####[facility] [address] [place], [address] OCCULT BLOOD-UR Normal Negative [facility] Comment on above: Order Comment: CLEAN CATCH Result Comment: Canc elled via OM: MD Ordered Performed By: #### M 100.678, L400.0001 ####[facility] [address] [place], [address] pH UR Normal 5.0 - 8.0 [facility] Comment on above: Order Comment: CLEAN CATCH Result Comment: Canc elled via OM: MD Ordered Performed By: #### M 100.678, L400.0001 ####[facility] [address] [place], [address] PROT DIPSTX Normal Negative [facility] Comment on above: Order Comment: CLEAN CATCH Result Comment: Canc elled via OM: MD Ordered Performed By: #### M 100.678, L400.0001 ####[facility] [address], [address] RBC Normal 0-5 [facility] Comment on above: Order Comment: CLEAN CATCH Result Comment: Canc elled via OM: MD Ordered Performed By: #### M 100.678, L400.0001 ####[facility] [address] [place], [address] SP.GR. DIPSTX Normal 1.002-1.030 [facility] Comment on above: Order Comment: CLEAN CATCH Result Comment: Canc elled via OM: MD Ordered Performed By: #### M 100.678, L400.0001 ####[facility] [address] [place], [address] UR Preservative Normal [facility] Comment on above: Order Comment: CLEAN CATCH Result Comment: Canc elled via OM: MD Ordered Performed By: #### M 100.678, L400.0001 ####[facility] [address] [place], [address] UROBILI Normal Normal [facility] Comment on above: Order Comment: CLEAN CATCH Result Comment: Canc elled via OM: MD Ordered Performed By: #### M 100.678, L400.0001 ####[facility] [address] [place], [address] WBC Normal 0-5 [facility] Comment on above: Order Comment: CLEAN CATCH Result Comment: Canc elled via OM: MD Ordered Performed By: #### M 100.678, L400.0001 ####[facility] [address] [place], [address] White blood cell (WBC) count Ordered By: Marty Woods on 10-05-2024 WBC (Bld) [#/Vol] 4.7 10*3/uL 4.4-11.0 [facility] aPTT Coag (PPP) [Time]Ordere d By: Marty Woods on 10-05-2024 aPTT Coag (Bld) [Time] 22.2 s Low 24.1-36.2 [facility] 36on 10-03-2024 36 Navigator contacted the office of Rhiannon Georges CNP at [facility]. Requested pulmonary function test and will scanned to media tab when available. Normal [facility] [address] Johnson during [facility] appt. Patient has a pericardial effusion and cardiac lesion. She has been lightheaded for a few days and expedited cardiology eval is recommended. Spoke with cardiology office at [phone] and arranged for appt with Dr. Luis at [address] Johnson will send patient right over. Normal [facility] 36 Navigator received request from cardiothoracic surgery office to assist with expediting lung nodule clinic evaluation. Patient lives far away and CTS is hoping patient can be seen while on campus. Patient was seen by Dr. Silvio Fortune this morning and needs pulmonary evaluation prior to surgical consideration. Verified prior images and reports from [facility] are available for review in PACS. Scanned imaging reports including CT chest imaging, thyroid imaging and provider office notes from medical oncology and pulmonary in [place] to the media tab. Patient will see Dr. Lacho Kamara now to further evaluate left hilar mass and adenopathy first noted on CT imaging 09/13/2024 in [place]. Normal [facility] 37on 10-03-2024 37 YOUR APPOINTMENT TODAY WAS WITH THE [facility] LUNG NODULE CLINIC, COPD CLINIC, PULMONARY AND SLEEP MEDICINE OFFICE. PLEASE CALL OUR OFFICE AT [phone] IF YOU HAVE NOT RECEIVED YOUR TEST RESULTS 7 DAYS AFTER TESTING IS COMPLETED. PLEASE REMEMBER TO REQUEST REFILLS AT YOUR OFFICE VISITS. PHONE/FAX REQUESTS REQUIRE 48-72 HOURS FOR RESPONSE. A FRIENDLY REMINDER COPAYS ARE DUE AT TIME OF SERVICE. THANK YOU. Our Patients Are Important! We want to improve and you can help. After your visit we want you to feel: Listened to, Respected and have your health care explained. You may receive a survey asking you about your visit. Please complete the survey. We will use your feedback to make improvements. COVID-19 VACCINATION INFORMATION: PH. [phone] HEALTH.ORG/CORONAVIR US/VACCINE [facility] Central Scheduling [phone] [facility] Sleep Scheduling [phone] Normal [facility] Office Visiton 10-03-2024 Follow-up visit [id number] Karina Fernando 1950 F Date Provider Department Center 10/03/2024 [id number] LUIS [facility] JERAMIE SHMGCV [address] Family History Problem Relation Age of Onset Cancer Mother Cancer Father No Known Problems Sister No Known Problems Brother Heart disease Brother Family Status - Relation Status Age at Mother Father Sister Alive Brother Alive Brother Alive Level of Service:57208 [place] OFFICE/OUTPATIENT NEW MODERATE MDM 45 MINUTES Reason for Visit and Comments: New Patient [542] Shortness of Breath [140973] - >1yr Normal [facility] Follow-up visit [id number] Karina Fernando 1950 Date Provider Department Center 10/03/2024 [id number] ASS, C*SHMG A[facility] PUL None Family History Problem Relation Age of Onset Cancer Mother Cancer Father No Known Problems Sister No Known Problems Brother Heart disease Brother Family Status - Relation Status Age at Mother Father Sister Alive Brother Alive Brother Alive Level of Service:15204 [place] OFFICE/OUTPATIENT NEW MODERATE MDM 45 MINUTES Reason for Visit and Comments: New Patient [542] Normal [facility] Follow-up visit [id number] Karina Fernando 1950 Date Provider Department Center 10/03/2024 [id number]-SWTOLMESILVIO [facility] A[facility] CT None Family History Problem Relation Age of Onset Cancer Mother Cancer Father No Known Problems Sister No Known Problems Brother Heart disease Brother Family Status - Relation Status Age at Mother Father Sister Alive Brother Alive Brother Alive Level of Service:06936 [place] OFFICE/OUTPATIENT NEW HIGH MDM 60 MINUTES Reason for Visit and Comments: New Patient [542] Normal [facility] Progress Noteon 10-03-2024 Progress Note [facility] Cardiology Note DATE of SERVICE:10/03/24 TIME of SERVICE: 2:41 PM Chief Complaint: Chief Complaint Patient presents with New Patient Shortness of Breath >1yr History of PresentIllness: Karina Fernando is a 73 y.o. female with a long history of tobacco use who was evaluated for shortness of breath. The workup in [facility] revealed a very large (6.2 x 4.7 cm) hilar mass. She was seen by pulmonary and scheduled for a biopsy also seen by Dr. Fortune. In the meantime however an echocardiogram that was done at [facility] reported a small pericardial effusion and a mass on the patient's right intra-atrial septum. Her biopsy was canceled and she was referred here to cardiology for an evaluation. I reviewed the echocardiogram that was done at [place], there is a very small hemodynamically insignificant pericardial effusion. She has normal biventricular systolic function and no major valvular function. She does have a very small 2.0 x 20. Cm well-circumscribed circular cardiac mass attached to the midportion of the intra-atrial septum. 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 I saw no other abnormalities on the echo that were concerning. The patient is free of any other cardiovascular symptoms. She does have a thyroid mass and that is scheduled for a biopsy as well. 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 No pertinent surgical history. Family History Family History Problem Relation Name Age of Onset Cancer Mother Cancer Father No Known Problems Sister No Known Problems Brother Heart disease Brother Social History Social History Tobacco Use Smoking status: Former Average packs/day: 1 pack/day for 51.9 years (51.9 ttl pk-yrs) Types: Cigarettes Start date: 1972 Passive exposure: Past Smokeless tobacco: Never Vaping Use Vaping status: Never Used Substance Use Topics Alcohol use: Not Currently Drug use: Never Comment: caffeine: 2 cups of coffee per day, 2 small cans of diet soda Allergies: Allergies Allergen Reactions Alendronate Muscle ache, Swelling / lump finding Cefaclor Hives Erythromycin Nausea And Vomiting Erythromycin Base Nausea Only Famciclovir Hives Gabapentin Unknown Morphine Nausea And Vomiting Penicillins Hives Tramadol Hives, Itching and Nausea And Vomiting Hydrochlorothiazide W-Triamterene Rash Medications: Current Outpatient Medications: acetaminophen (Tylenol Extra Strength) 500 MG tablet, Take by mouth., Disp: , Rfl: albuterol (Ventolin HFA) 108 (90 Base) MCG/ACT inhaler, Inhale 2 puffs every 4 hours as needed for wheezing or shortness of breath., Disp: 8 g, Rfl: 11 busPIRone (Buspar) 10 MG tablet, Take 10 mg by mouth 3 times daily as needed., Disp: , Rfl: cetirizine (ZyrTEC) 10 MG tablet, Take 10 mg by mouth daily., Disp: , Rfl: cholecalciferol (Vitamin D-3) 25 MCG (1000 UT) capsule, Take 1,000 Units by mouth daily., Disp: , Rfl: Fluticasone-Umeclidi n-Vilant (Trelegy Ellipta) 100-62.5-25 MCG/ACT aerosol powder , Inhale 1 Inhalation daily., Disp: 60 each, Rfl: 5 gabapentin (Neurontin) 300 MG capsule, Take 300 mg by mouth 3 times daily., Disp: , Rfl: hydroCHLOROthiazide (HYDRODiuril) 25 MG tablet, Take 25 mg by mouth daily., Disp: , Rfl: loratadine (Claritin) 5 MG chewable tablet, Chew 5 mg daily., Disp: , Rfl: Melatonin 2.5 MG chewable tablet, Chew Daily as needed., Disp: , Rfl: meloxicam (Mobic) 15 MG tablet, Take by mouth daily., Disp: , Rfl: Multiple Vitamin (multivitamin) capsule, Take 1 capsule by mouth daily., Disp: , Rfl: [place]-3 Fatty Acids (OMEGA 3 500 PO), Take by mouth daily., Disp: , Rfl: oxyCODONE-acetaminop hen (Percocet) 5-325 MG tablet, , Disp: , Rfl: simvastatin (Zocor) 20 MG tablet, Take 20 mg by mouth Nightly., Disp: , Rfl: traZODone (Desyrel) 100 MG tablet, Take 100 mg by mouth Nightly., Disp: , Rfl: valACYclovir (Valtrex) 500 MG tablet, Take by mouth daily., Disp: , Rfl: Vitamin E 268 MG (400 UNIT) capsule, Take by mouth daily., Disp: , Rfl: Review of Systems: Review of Systems Constitutional: Negative. HENT: Negative. Respiratory: Positive for shortness of breath. Negative for chest tightness. Cardiovascular: Negative for chest pain, palpitations and leg swelling. Neurological: Negative. Psychiatric/Behavior al: Negative. Physical Examination: Vitals: Vitals: 10/03/24 1356 BP: 108/62 BP Location: Left arm Patient Position: Sitting BP Cuff Size: Adult Pulse: 76 Weight: 163 lb (73.9 kg) Height: 5' 3 (1.6 m) Body mass index is 28.8 (more content not included)... Normal [facility] Progress Note [facility], Pulmonary Critical Care Medicine [address] [place] [id number] Pulmonary Patient Visit - New 10/03/2024 Referring Physician: TU HECTOR DO Reason for Referral: SOB History of Present Illness Karina Fernando is a 73 y.o. F with history of recurrent sinus infections, COPD on symbicort/albuterol, HTN who presented for a left hilar mass. Stated that in May she began having shortness of breath which worsened until she went to the ER in [place] in August. Found on CT with a left hilar mass, left upper lobe pleural-based mass, and moderate pericardial effusion. Evaluated by oncology and recommended for PET/CT, MRI brain, and biopsy. Established with pulmonology and had been planned for EBUS in [place] but canceled after TTE demonstrated a right atrial mass and moderate RA collapse due to a small pericardial effusion. Evaluated by Dr. Fortune earlier today. Patient reports dyspnea has continued to progress, experiences when she is sitting upright or with exertion. Has had a cough and occasional wheezing. Now on Symbicort and using albuterol 4 times daily. Reported substernal chest discomfort since May. Has had lightheadedness and dizziness for the past 3 days. Has a history of facial BCC s/p excision 2022. 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 No pertinent surgical history. Allergies Allergies Allergen Reactions Alendronate Muscle ache, Swelling / lump finding Cefaclor Hives Erythromycin Nausea And Vomiting Erythromycin Base Nausea Only Famciclovir Hives Gabapentin Unknown Morphine Nausea And Vomiting Penicillins Hives Tramadol Hives, Itching and Nausea And Vomiting Hydrochlorothiazide W-Triamterene Rash Medications Medication Documentation Review Audit Reviewed by Rachel Johnson DO (Physician) on 10/03/24 at 1703 Medication Order Taking? Sig Documenting Provider Last Dose Status acetaminophen (Tylenol Extra Strength) 500 MG tablet [id number] Yes Take by mouth. Historical MD Jose Not Taking Active albuterol (Ventolin HFA) 108 (90 Base) MCG/ACT inhaler [id number] Inhale 2 puffs every 4 hours as needed for wheezing or shortness of breath. Rachel Johnson DO Active busPIRone (Buspar) 10 MG tablet [id number] Yes Take 10 mg by mouth 3 times daily as needed. Slick Garcia MD Taking Active cetirizine (ZyrTEC) 10 MG tablet [id number] Yes Take 10 mg by mouth daily. Historical ProviderMD Taking Active cholecalciferol (Vitamin D-3) 25 MCG (1000 UT) capsule [id number] Yes Take 1,000 Units by mouth daily. Historical ProviderMD Active Fluticasone-Umeclidi n-Vilant (Trelegy Ellipta) 100-62.5-25 MCG/ACT aerosol powder [id number] Inhale 1 Inhalation daily. Rachel Johnson DO Active gabapentin (Neurontin) 300 MG capsule [id number] Yes Take 300 mg by mouth 3 times daily. Slick ProviderMD Not Taking Active hydroCHLOROthiazide (HYDRODiuril) 25 MG tablet [id number] Yes Take 25 mg by mouth daily. Historical ProviderMD Taking Active loratadine (Claritin) 5 MG chewable tablet [id number] Yes Chew 5 mg daily. Historical ProviderMD Active Melatonin 2.5 MG chewable tablet [id number] Yes Chew Daily as needed. Slick ProviderMD Not Taking Active meloxicam (Mobic) 15 MG tablet [id number] Yes Take by mouth daily. Historical ProviderMD Not Taking Active Multiple Vitamin (multivitamin) capsule [id number] Yes Take 1 capsule by mouth daily. Historical ProviderMD Active [place]-3 Fatty Acids (OMEGA 3 500 PO) [id number] Yes Take by mouth daily. Historical ProviderMD Taking Active oxyCODONE-acetaminop hen (Percocet) 5-325 MG tablet [id number] Yes Historical Provider, Taking Active simvastatin (Zocor) 20 MG tablet [id number] Yes Take 20 mg by mouth Nightly. Historical Provider, Taking Active traZODone (Desyrel) 100 MG tablet [id number] Yes Take 100 mg by mouth Nightly. Historical Provider, Taking Active valACYclovir (Valtrex) 500 MG tablet [id number] Yes Take by mouth daily. Historical ProviderMD Not Taking Active Vitamin E 268 MG (400 UNIT) capsule [id number] Yes Take by mouth daily. Historical ProviderMD Taking Active Social History Social History Tobacco Use Smoking status: Former Average packs/day: (more content not included)... Normal [facility] Progress Note [facility] CARDI[facility]ORACIC SURGERY [address] [facility] [address] Dept: [phone] Dept Loc: [phone] Visit type: New Reason for Visit: AP window, left hilar adenopathy and left upper lobe pleural-based mass. In addition, a small right atrial mass is present of uncertain etiology Assessment and plan This 73-year-old patient with standing COPD was found to have a left hilar mass, involvement of the AP window, and a pleural-based lesion on the left lung that appears smooth. This is concerning for malignancy. I would recommended EBUS/ENB to evaluate the left hilar adenopathy. A PET scan will be required for further staging. An MRI of the brain will be required for staging purposes. Further recommendations will follow once this testing has been completed. We will review the echocardiogram to further evaluate the right atrial mass. At the present time, this is likely unrelated to this is but shows areas that may be consistent with malignancy. History of Present Illness Karina Fernando is a 73 y.o. female referred by ROWDY Rothman for right atrial mass and pericardial effusion. Per note, pt had presented to [place] ED in August 2023 for dyspnea. CTA chest showed left hilar mass, left upper lobe pleural-based mass and large prevascular lymph node concerning for malignancy. Also showed a moderate pericardial effusion and large hiatal hernia. Pt was treated for a sinus infection, given Doxycycline and steroids, and discharged. Pt was referred to Oncology and was evaluated on 09/18/[address] guided biopsy, PET scan, and MRI brain. PCP ordered a thyroid ultrasound which was completed on 09/19/24 and demonstrated thyromegaly and multinodular goiter. PCP also ordered an echocardiogram which was completed on 09/25/24 and demonstrated a 2.0 cm x 1.9 cm spherical mass on the right side of the interatrial septum, a small pericardial effusion with RA collapse. Pt is a former smoker. Pt is here now for an evaluation. Past Medical History Past Medical History: Diagnosis Date Fracture of ankle Hypertension Mass of soft tissue of upper arm LEFT ARM Spondylolisthesis, lumbar region Past Surgical History No past surgical history on file. Family History No family history on file. Social History Social History Tobacco Use Smoking status: Every Day Current packs/day: 0.50 Types: Cigarettes Smokeless tobacco: Never Substance Use Topics Alcohol use: Yes Drug use: Never Allergies Allergies Allergen Reactions Alendronate Other reaction(s): Muscle ache, Swelling / lump finding Cefaclor Hives Other reaction(s): hives, Hives and/or rash Erythromycin Other reaction(s): GI Upset, Stomach pain, stomach upset Erythromycin Base Nausea Only Famciclovir Other reaction(s): hives Gabapentin Other reaction(s): Unknown Morphine Other reaction(s): stomach upset, Vomiting Penicillins Hives Other reaction(s): hives, HIVES, Hives and/or rash Tramadol Other reaction(s): Hives, Itching, Severe nausea & vomiting, stomach upset, Vomiting Rash And Itching Hydrochlorothiazide W-Triamterene Rash Medications Current Outpatient Medications: acetaminophen (Tylenol Extra Strength) 500 MG tablet, Take by mouth., Disp: , Rfl: busPIRone (Buspar) 10 MG tablet, Take 10 mg by mouth 3 times daily as needed., Disp: , Rfl: cetirizine (ZyrTEC) 10 MG tablet, Take 10 mg by mouth daily., Disp: , Rfl: gabapentin (Neurontin) 300 MG capsule, Take 300 mg by mouth 3 times daily., Disp: , Rfl: hydroCHLOROthiazide (HYDRODiuril) 25 MG tablet, Take 25 mg by mouth daily., Disp: , Rfl: Melatonin 2.5 MG chewable tablet, Chew., Disp: , Rfl: meloxicam (Mobic) 15 MG tablet, Take by mouth., Disp: , Rfl: [place]-3 Fatty Acids (OMEGA 3 500 PO), Take by mouth., Disp: , Rfl: oxyCODONE-acetaminop hen (Percocet) 5-325 MG tablet, , Disp: , Rfl: simvastatin (Zocor) 20 MG tablet, Take 20 mg by mouth Nightly., Disp: , Rfl: traZODone (Desyrel) 100 MG tablet, Take 100 mg by mouth Nightly., Disp: , Rfl: valACYclovir (Valtrex) 500 MG tablet, Take by mouth., Disp: , Rfl: Vitamin E 268 MG (400 UNIT) capsule, Take by mouth., Disp: , Rfl: Review of Systems Review of Systems Constitutional: Positive for fatigue. HENT: Positive for voice change (voice hoarseness). Respiratory: Positive for cough (dry cough). Cardiovascular: Positive for chest pain (intermittent). Neurological: Positive for light-headedness (intermittent, started 3 days ago). All other systems reviewed and are negative. Physical Exam Vitals: There were no vitals taken for this visit. Constitutional: General: Not in acute distress. Appearance: Normal appearance. Not toxic-appearing. Ear, nose, mouth: Bilateral external ear and nose normal. Nose: Nose normal. Mouth: Appearance normal, no bleeding, moist mucus m (more content not included)... Normal [facility] Office Visit Reporton 2024 Office Visit Report Normal [facility] Activated partial thrombopla stin time (aPTT) in platelet poor plasma by coagulation aOrdered By: Rhiannon Georges on 09-22-2024 aPTT Coag (PPP) [Time] 21.2 s Low 24.1-36.2 [facility] International normalized rat io (INR) calculationOrdered By: Rhiannon Georges on 09-22-2024 INR Coag (Bld) [Relative time] 0.9 {INR} [facility] Partial Thromboplast Timeon 09-22-2024 aPTT Coag (Bld) [Time] 21.2 s Low 24.1-36.2 [facility] Comment on above: Performed By: #### L 300.4310, L300.3900 ####[facility] [address] [place], [address] Prothrombin Time w/INRon INR Coag (PPP) [Relative time] 0.9 {INR} Normal [facility] Comment on above: Performed By: #### L 300.4310, L300.3900 ####[facility] [address] [place], [address] PT Coag (PPP) [Time] 12.8 s Normal 11.7-14.9 [facility] Comment on above: Performed By: #### L 300.4310, L300.3900 ####[facility] [address] [place], [address] Prothrombin timeOrdered By: Rhiannon Georges on 09-22-2024 PT Coag (PPP) [Time] 12.8 s 11.7-14.9 [facility] Pulmonary Visit Reporton Pulmonary Visit Report Normal [facility] aPTT Coag (PPP) [Time]Ordere d By: Rhiannon Georges on 09-22-2024 aPTT Coag (Bld) [Time] 21.2 s Low 24.1-36.2 [facility] US THYROIDon 09-19-2024 US THYROID ORIGINAL EXAMINATION: ULTRASOUND OF THE THYROID WITH COLOR DOPPLER FLOW EVALUATION09/19/2024 12:06 pm Ultrasound Thyroid COMPARISON: None HISTORY: ORDERING SYSTEM PROVIDED HISTORY: Reason for Exam: dysphagia; thyroid nodule, All images are recorded and archived. FINDINGS: Size right thyroid lobe: 6.2 x 2.8 x 2.7 cm Size left thyroid lobe: 4.7 x 2.2 x 2.1 cm Size isthmus: 0.9 cm Texture: Heterogeneous Estimated total number of nodules greater than or equal to 1 cm: 6-10 Nodule#: # 1: Maximum size: 1.6 cm . All dimensions: 1.4 x 1.6 x 1.1 cm Location: Right Lower Composition: solid or almost completely solid: 2 points Echogenicity: hypoechoic: 2 points Shape: wider than tall: 0 points Margins: lobulated/irregular: 2 points Echogenic foci: none: 0 points ACR Total Points: 6; ACR TI-RADS risk category: TR4 - moderately suspicious nodule. Remainder of the enlarged thyroid gland demonstrates numerous adjacent spongiform lesions. IMPRESSION: Thyromegaly and multinodular goiter. 1. Nodule 1: ACR TI-RADS 2017 Category 4. Recommend: Ultrasound-guided fine needle aspiration ACR TI-RADS 2017 Recommendations: TR1(0 points) : No FNA or follow up TR2 (2 points) : No FNA or follow up TR3 (3 points) : FNA if >/= 2.5 cm, follow up if 1.5 - 2.4 cm in 1, 3, and 5 years TR4 (4-6 points) : FNA if >/= 1.5 cm, follow up if 1.0 - 1.4 cm in 1, 2, 3, and 5 years TR5 (>/= 7 points) : FNA if >/= 1.0 cm, follow up if 0.5 - 0.9 cm every year for 5 years *ACR TI-RADS recommends that no more than two nodules with the highest ACR TI-RADS total point should be biopsied and no more than four nodules should be followed. Interpreted by: Andrew Conklin DO Preliminary Report By: Andrew Conklin DO Electronically signed By Andrew Conklin DO Dictated Date: 09/19/2024 12:58:33 PM Prelim Date: 09/19/2024 1:04:03 PM Sign Date: 09/19/2024 1:04:03 PM Ordering Provider: JOSELIN Botello [facility] Oncology Visit Reporton Oncology Visit Report Normal [facility] XR CHEST 2 VIEWSon XR CHEST 2 VIEWS ORIGINAL EXAMINATION: TWO XRAY VIEWS OF THE CHEST 09/13/2024 9:44 am COMPARISON: 02/11/2024 HISTORY: ORDERING SYSTEM PROVIDED HISTORY: Reason for Exam: SOB, fatigue, dysphagia, prior smoker FINDINGS: Oval opacity measuring 2.2 cm projects in the lateral left lung apex. This area was previously obscured by a monitoring electrode on prior study. Remaining lung abbasi are clear. There is no cardiomegaly, pulmonary edema or pneumothorax. IMPRESSION: 1. 2.2 cm opacity left lung apex. Appearance may relate to granuloma or developing lung mass. Follow-up with computed tomography of the chest advised. 2. No acute airspace disease. 3. Core team directed to call report. Interpreted by: Andrew Conklin DO Preliminary Report By: Andrew Conklin DO Electronically signed By Andrew Conklin DO Dictated Date: 09/14/2024 4:49:49 PM Prelim Date: 09/14/2024 4:52:34 PM Sign Date: 09/14/2024 4:52:34 PM Ordering Provider: JOSELIN MAURER [facility] .GFRon 09-13-2024 Estimated Glomerular Filtration Rate 50 ml/min/1.73sqm [facility] Comment on above: Result Comment: Stages of Chronic Kidney Disease (CKD) Stage Description eGFR(ml/min/1.73 sq.m.) CKD 1 Normal kidney function or >=90 normal kindney function with possible kidney damage (ex. Proteinuria) CKD 2 Kidney damage with mild loss 60-89 of kidney function CKD 3a Mild to moderate loss of kidney 45-59 function CKD 3b Moderate to severe loss of 30-44 of kindey function CKD 4 Severe loss of kidney function 15-29 CKD 5 Kidney failure <15 Note: (go live 2024) the eGFR calculation was updated to the 2020 CKD-EPI creatinine equation without a race factor to calculate the eGFR results. Performed By: #### G FR, TSH, FT4, DIFF, MORPH, CMP, CBC, PBNP #### [id number] [place], [place] [address] .Manual Diffon 09-13-2024 Basophil %, Manual 0.0 % Normal 0.0-2.5 [facility] Comment on above: Performed By: #### G FR, TSH, FT4, DIFF, MORPH, CMP, CBC, PBNP #### [address] [place], [place] [address] Basophil, Abs Manual 0.0 10 3/mcL Normal 0.0-0.2 [facility] Comment on above: Performed By: #### G FR, TSH, FT4, DIFF, MORPH, CMP, CBC, PBNP #### [address] [address] Eosinophil %, Manual 0.0 % Normal 0.0-7.0 [facility] Comment on above: Performed By: #### G FR, TSH, FT4, DIFF, MORPH, CMP, CBC, PBNP #### [address] [address] Eosinophil, Abs Manual 0.0 10 3/mcL Normal 0.0-0.7 [facility] Comment on above: Performed By: #### G FR, TSH, FT4, DIFF, MORPH, CMP, CBC, PBNP #### [address] [address] Lymphocyte %, Manual 32.0 % Normal 20.0-40.0 [facility] Comment on above: Performed By: #### G FR, TSH, FT4, DIFF, MORPH, CMP, CBC, PBNP #### [address] [address] Lymphocyte, Abs Manual 1.8 10 3/mcL Normal 0.9-4.3 [facility] Comment on above: Performed By: #### G FR, TSH, FT4, DIFF, MORPH, CMP, CBC, PBNP #### [address] [address] Monocyte %, Manual 16.0 % High 2.0-13.0 [facility] Comment on above: Performed By: #### G FR, TSH, FT4, DIFF, MORPH, CMP, CBC, PBNP #### [address] [address] Monocyte, Abs Manual 0.9 10 3/mcL Normal 0.1-1.4 [facility] Comment on above: Performed By: #### G FR, TSH, FT4, DIFF, MORPH, CMP, CBC, PBNP #### [address] [address] Neutrophil %, Manual 52.0 % Normal 50.0-75.0 [facility] Comment on above: Performed By: #### G FR, TSH, FT4, DIFF, MORPH, CMP, CBC, PBNP #### [address] [address] Neutrophil, Abs Manual 2.9 10 3/mcL Normal 2.3-8.1 [facility] Comment on above: Performed By: #### G FR, TSH, FT4, DIFF, MORPH, CMP, CBC, PBNP #### [address] [address] Nucleated RBC 0.0 /100 WBC Normal [facility] Comment on above: Performed By: #### G FR, TSH, FT4, DIFF, MORPH, CMP, CBC, PBNP #### [address] [place] [address] .Morphon 09-13-2024 Anisocytosis Ql (Bld) 2+ Normal [facility] Comment on above: Performed By: #### G FR, TSH, FT4, DIFF, MORPH, CMP, CBC, PBNP #### [address] [address] Microcytosis 2+ Normal [facility] Comment on above: Performed By: #### G FR, TSH, FT4, DIFF, MORPH, CMP, CBC, PBNP #### [address] [place] [address] Platelet Estimate Normal Normal [facility] Comment on above: Performed By: #### G FR, TSH, FT4, DIFF, MORPH, CMP, CBC, PBNP #### [address] [address] 12 Lead EKGon 09-13-2024 12 Lead EKG Normal [facility] Absolute lymphocyte countOrd ered By: ED PROVIDER on 09-13-2024 Lymphocytes Auto (Unsp spec) [#/Vol] 1.62 10*3/uL 0.83-4.51 [facility] Absolute neutrophil countOrd ered By: ED PROVIDER on 09-13-2024 Neutrophils (Bld) [#/Vol] 3.0 10*3/uL 2.0-7.7 [facility] Atypical lymphocyte percenta geOrdered By: ED PROVIDER on 09-13-2024 Atypical Lymphocytes 1+ % [facility] Automated lymphocyte count a s percentage of total leukocytesOrdered By: ED PROVIDER on 09-13-2024 Lymphocytes/100 WBC Auto (Unsp spec) 29.3 % 19-41 [facility] BUN/creatinine ratioOrdered By: ED PROVIDER on 09-13-2024 Urea nitrogen/Creatinine [Mass ratio] 8.2 mg/mg Low 10-20 [facility] Basic Metabolic Profile (BMP )on 09-13-2024 Anion gap [Moles/Vol] 12 mmol/L Normal 5-15 [facility] Comment on above: Performed By: #### L 100.0100, L500.2500 ####[facility] [address] [place], [address] BUN/CRE 8.2 RATIO Low 10-20 [facility] Comment on above: Performed By: #### L 100.0100, L500.2500 ####[facility] [address] [place], [address] Calcium [Mass/Vol] 9.1 mg/dL Normal 7.6-11.0 [facility] Comment on above: Performed By: #### L 100.0100, L500.2500 ####[facility] [address] [place], [address] Chloride [Moles/Vol] 101 mmol/L Normal 96-108 [facility] Comment on above: Performed By: #### L 100.0100, L500.2500 ####[facility] [address] [place], [address] CO2 [Moles/Vol] 27.1 mmol/L Normal 22.0-29.0 [facility] Comment on above: Performed By: #### L 100.0100, L500.2500 ####[facility] [address] [place], [address] Creatinine [Mass/Vol] 1.0 mg/dL Normal 0.6-1.0 [facility] Comment on above: Performed By: #### L 100.0100, L500.2500 ####[facility] [address] [place], [address] GFR/1.73 sq M.predicted among non-blacks MDRD (S/P/Bld) [Vol rate/Area] 62 mL/min/{1.73_m2} Normal >60 [facility] Comment on above: Result Comment: mL/m in/1.73m2 CKD-EPI Creatinine Equation (2020) Performed By: #### L 100.0100, L500.2500 ####[facility] [address] [place], [address] Glucose [Mass/Vol] 112 mg/dL High 70-99 [facility] Comment on above: Performed By: #### L 100.0100, L500.2500 ####[facility] [address] [place], [address] Potassium [Moles/Vol] 4.1 mmol/L Normal 3.3-5.1 [facility] Comment on above: Performed By: #### L 100.0100, L500.2500 ####[facility] [address] [place], [address] Sodium [Moles/Vol] 139 mmol/L Normal 133-145 [facility] Comment on above: Performed By: #### L 100.0100, L500.2500 ####[facility] [address] [place], [address] Urea nitrogen [Mass/Vol] 8 mg/dL Normal 4-19 [facility] Comment on above: Performed By: #### L 100.0100, L500.2500 ####[facility] [address] [place], [address] Basophil percentageOrdered B y: ED PROVIDER on 09-13-2024 Basophils/100 WBC (Bld) 0.7 % 0-1 [address] [place] Fide cells LM Ql (Bld)Ordere d By: ED PROVIDER on 09-13-2024 Fide Cells RARE [facility] CBCon 09-13-2024 Erythrocyte distribution width (RBC) [Ratio] 25.1 % High 11.5-15.5 [facility] Comment on above: Performed By: #### G FR, TSH, FT4, DIFF, MORPH, CMP, CBC, PBNP #### [address] [address] Hematocrit (Bld) [Volume fraction] 36.6 % Normal 34.0-46.0 [facility] Comment on above: Performed By: #### G FR, TSH, FT4, DIFF, MORPH, CMP, CBC, PBNP #### [address] [address] Hgb 11.7 G/dL Low 12.0-16.0 [facility] Comment on above: Performed By: #### G FR, TSH, FT4, DIFF, MORPH, CMP, CBC, PBNP #### [address] [address] MCH (RBC) [Entitic mass] 25.1 pg Low 27.0-33.0 [facility] Comment on above: Performed By: #### G FR, TSH, FT4, DIFF, MORPH, CMP, CBC, PBNP #### [address] [address] MCHC 32.0 G/dL Normal 32.0-36.0 [facility] Comment on above: Performed By: #### G FR, TSH, FT4, DIFF, MORPH, CMP, CBC, PBNP #### [address] [address] MCV (RBC) [Entitic vol] 78.7 fL Low 80.0-99.0 [facility] Comment on above: Performed By: #### G FR, TSH, FT4, DIFF, MORPH, CMP, CBC, PBNP #### [address] [address] Platelet 283 10 3/mcL Normal 150-450 [facility] Comment on above: Performed By: #### G FR, TSH, FT4, DIFF, MORPH, CMP, CBC, PBNP #### [address] [place], [place] [address] Platelet mean volume (Bld) [Entitic vol] 7.0 fL Normal 6.6-10.5 [facility] Comment on above: Performed By: #### G FR, TSH, FT4, DIFF, MORPH, CMP, CBC, PBNP #### [address] [place], [place] [address] RBC 4.66 10 6/mcL Normal 4.10-5.30 [facility] Comment on above: Performed By: #### G FR, TSH, FT4, DIFF, MORPH, CMP, CBC, PBNP #### [address] [address] WBC 5.6 10 3/mcL Normal 4.5-10.8 [facility] Comment on above: Performed By: #### G FR, TSH, FT4, DIFF, MORPH, CMP, CBC, PBNP #### [address] [place], [place] [address] CBC W/Diff, Automatedon 08-20 FIDE CELLS RARE Normal [facility] Comment on above: Performed By: #### L 100.0100, L500.2500 ####[facility] [address] [place], [place], [id number] Anisocytosis Ql (Bld) 1+ Normal [facility] Comment on above: Performed By: #### L 100.0100, L500.2500 ####[facility] [address] [place], [place], [id number] ATYPICAL LYMPH 1+ Normal [facility] Comment on above: Performed By: #### L 100.0100, L500.2500 ####[facility] [address] [place], [address] TARGET CELLS 1+ Normal [facility] Comment on above: Performed By: #### L 100.0100, L500.2500 ####[facility] [address] [place], [address] CMPon 09-13-2024 Albumin Level 3.6 G/dL Normal 3.4-4.8 [facility] Comment on above: Performed By: #### G FR, TSH, FT4, DIFF, MORPH, CMP, CBC, PBNP #### [address] [address] Albumin/Globulin [Mass ratio] 1.1 {ratio} Normal 1.1-2.5 [facility] Comment on above: Performed By: #### G FR, TSH, FT4, DIFF, MORPH, CMP, CBC, PBNP #### [address] [address] ALP [Catalytic activity/Vol] 67 U/L Normal 40-135 [facility] Comment on above: Performed By: #### G FR, TSH, FT4, DIFF, MORPH, CMP, CBC, PBNP #### [address] [address] ALT [Catalytic activity/Vol] 28 U/L Normal 14-59 [facility] Comment on above: Performed By: #### G FR, TSH, FT4, DIFF, MORPH, CMP, CBC, PBNP #### [address] [address] AST [Catalytic activity/Vol] 20 U/L Normal 10-40 [facility] Comment on above: Performed By: #### G FR, TSH, FT4, DIFF, MORPH, CMP, CBC, PBNP #### [address] [address] Bili Total 0.2 mg/dL Normal 0.2-1.0 [facility] Comment on above: Result Comment: Use of this assay is not recommended for patients undergoing treatment with eltrombopag due to the potential for falsely elevated results. Performed By: #### G FR, TSH, FT4, DIFF, MORPH, CMP, CBC, PBNP #### [address] [address] BUN/Creatinine Ratio 7 ratio Normal 7-27 [facility] Comment on above: Performed By: #### G FR, TSH, FT4, DIFF, MORPH, CMP, CBC, PBNP #### [address] [address] Calcium [Mass/Vol] 9.6 mg/dL Normal 8.4-10.2 [facility] Comment on above: Performed By: #### G FR, TSH, FT4, DIFF, MORPH, CMP, CBC, PBNP #### [address] [address] Chloride [Moles/Vol] 102 mmol/L Normal 98-107 [facility] Comment on above: Performed By: #### G FR, TSH, FT4, DIFF, MORPH, CMP, CBC, PBNP #### [address] [address] CO2 [Moles/Vol] 34 mmol/L High 23-31 [facility] Comment on above: Performed By: #### G FR, TSH, FT4, DIFF, MORPH, CMP, CBC, PBNP #### [address] [address] Creatinine [Mass/Vol] 1.16 mg/dL High 0.55-1.02 [facility] Comment on above: Result Comment: Test ing performed on Siemens Dimension EXL analyzer using a modified kinetic Cristina technique. Performed By: #### G FR, TSH, FT4, DIFF, MORPH, CMP, CBC, PBNP #### [address] [address] Electrolyte Balance 3.0 mEq/L Low 4.0-15.0 [facility] Comment on above: Performed By: #### G FR, TSH, FT4, DIFF, MORPH, CMP, CBC, PBNP #### [address] [address] Globulin 3.3 G/dL Normal 1.5-3.8 [facility] Comment on above: Performed By: #### G FR, TSH, FT4, DIFF, MORPH, CMP, CBC, PBNP #### [address] [address] Glucose [Mass/Vol] 94 mg/dL Normal 83-110 [facility] Comment on above: Performed By: #### G FR, TSH, FT4, DIFF, MORPH, CMP, CBC, PBNP #### [address] [address] Potassium [Moles/Vol] 3.8 mmol/L Normal 3.5-5.1 [facility] Comment on above: Performed By: #### G FR, TSH, FT4, DIFF, MORPH, CMP, CBC, PBNP #### [address] [address] Sodium [Moles/Vol] 139 mmol/L Normal 136-145 [facility] Comment on above: Performed By: #### G FR, TSH, FT4, DIFF, MORPH, CMP, CBC, PBNP #### [address] [address] Total Protein 6.9 G/dL Normal 6.4-8.2 [facility] Comment on above: Performed By: #### G FR, TSH, FT4, DIFF, MORPH, CMP, CBC, PBNP #### [address] [address] Urea nitrogen [Mass/Vol] 8 mg/dL Normal 7-18 [facility] Comment on above: Performed By: #### G FR, TSH, FT4, DIFF, MORPH, CMP, CBC, PBNP #### [address] [address] CTA Chest W/WO Contraston CTA Chest W/WO Contrast Normal [place] Carbon dioxide measurementOr dered By: ED PROVIDER on 09-13-2024 CO2 [Moles/Vol] 27.1 mmol/L 22.0-29.0 [facility] Chest PA and Lateralon 09-13 Chest PA and Lateral Normal [facility] Chloride measurementOrdered By: ED PROVIDER on 09-13-2024 Chloride [Moles/Vol] 101 mmol/L 96-108 [facility] Creatinine [Moles/Vol]Ordere d By: ED PROVIDER on 09-13-2024 Creatinine [Mass/Vol] 1.0 mg/dL 0.6-1.0 [facility] Crenated erythrocyte detecti on by light microscopyOrdered By: ED PROVIDER on 09-13-2024 Fide cells LM Ql (Bld) RARE [facility] Emergency Department Summary on 09-13-2024 Emergency Department Summary Normal [facility] Eosinophil percentageOrdered By: ED PROVIDER on 09-13-2024 Eosinophils/100 WBC (Bld) 0.4 % 0-5 [facility] Erythrocyte distribution wid th ratioOrdered By: ED PROVIDER on 09-13-2024 Erythrocyte distribution width (RBC) [Ratio] 22.8 % High 11.6-14.6 [facility] Erythrocyte distribution wid th standard deviationOrdered By: ED PROVIDER on 09-13-2024 Erythrocyte distribution width (RBC) [Entitic vol] 65.5 fL High 35.1-43.9 [facility] Erythrocyte distribution width (RBC) [Ratio] 65.5 fl High 35.1-43.9 [facility] FT4on 09-13-2024 Free T4 [Mass/Vol] 1.15 ng/dL Normal 0.76-1.46 [facility] Comment on above: Performed By: #### G FR, TSH, FT4, DIFF, MORPH, CMP, CBC, PBNP #### [address] [place], [place] [address] GFR/1.73 sq M.predicted ty g non-blacks MDRD (S/P/Bld) [Vol rate/Area]Ordered By: ED PROVIDER on 09-13-2024 Estimated GFR (MDRD) Non-Af Amer 62 >60 [facility] Comment on above: mL/min/1.73m2 CKD-EP I Creatinine Equation (2020) Glomerular filtration rate ( GFR) estimation/1.73 sq m using serum, plasma, or whole bOrdered By: ED PROVIDER on 09-13-2024 GFR/1.73 sq M.predicted among non-blacks MDRD (S/P/Bld) [Vol rate/Area] 62 mL/min/{1.73_m2} >60 [facility] Comment on above: mL/min/1.73m2 CKD-EP I Creatinine Equation (2020) Hematocrit Auto (Bld) [Volum e fraction]Ordered By: ED PROVIDER on 09-13-2024 Hematocrit (Bld) [Volume fraction] 37.7 % 37-47 [facility] Hemoglobin measurementOrdere d By: ED PROVIDER on 09-13-2024 Hemoglobin (Bld) [Mass/Vol] 11.4 g/dL Low 12.0-15.0 [facility] Immature granulocytes/100 WB C Auto (Bld)Ordered By: ED PROVIDER on 09-13-2024 Immature granulocytes/100 WBC (Bld) 0.400 % 0.0-0.9 [facility] Comment on above: IG% - Immature Granu locytes (promyelocytes, myelocytes and metamyelocytes) > 1% indicates that a LEFT SHIFT is Present. Influenza virus A and B and SARS-CoV-2 (COVID-19) and Respiratory syncytial virus RNAOrdered By: Chris Maria on 09-13-2024 SARS-CoV-2 (COVID-19) RNA MIGUE+probe Ql (Unsp spec) [facility] L501.4021on 09-13-2024 Trop T High Sen 19 ng/L High <=14 [facility] Comment on above: Performed By: #### L 501.4027 ####[facility] [address] [place], [address] LABORATORYOrdered By: SYSTEM SYSTEM on 09-13-2024 Albumin BCP dye [Mass/Vol] 3.6 G/dL Normal 3.4 - 4.8 G/dL AO ADM SS Albumin/Globulin [Mass ratio] 1.1 {ratio} Normal 1.1 - 2.5 ratio AO ADM SS ALP [Catalytic activity/Vol] 67 U/L Normal 40 - 135 U/L AO ADM SS ALT With P-5'-P [Catalytic activity/Vol] 28 U/L Normal 14 - 59 U/L AO ADM SS Anisocytosis Ql (Bld) 2+ *NA* (09/13/24 12:53 PM) Invalid Interpretation Code AO Workflow SS AST With P-5'-P [Catalytic activity/Vol] 20 U/L Normal 10 - 40 U/L AO ADM SS Basophil %, Manual 0.0 % Normal 0.0 - 2.5 % AO Wo rkflow SS Basophils (Bld) [#/Vol] 0.0 103/mcL Normal 0.0 - 0.2 10^3/mcL AO Workflow SS Bilirubin [Mass/Vol] 0.2 mg/dL Normal 0.2 - 1 .0 mg/dL AO ADM SS Comment on above: Interpretive Data: U se of this assay is not recommended for patients undergoing treatment with eltrombopag due to the potential for falsely elevated results. Calcium [Mass/Vol] 9.6 mg/dL Normal 8.4 - 10. 2 mg/dL AO ADM SS Chloride [Moles/Vol] 102 mmol/L Normal 98 - 10 7 mmol/L AO ADM SS CO2 [Moles/Vol] 34 mmol/L High 23 - 31 mmol/L AO ADM SS Creatinine [Mass/Vol] 1.16 mg/dL High 0.55 - 1.02 mg/dL AO ADM SS Comment on above: Interpretive Data: T esting performed on Siemens Dimension EXL analyzer using a modified kinetic Cristina technique. Electrolyte Balance 3.0 mEq/L Low 4.0 - 15 .0 mEq/L AO ADM SS Eosinophil %, Manual 0.0 % Normal 0.0 - 7.0 % AO Workflow SS Eosinophils (Bld) [#/Vol] 0.0 103/mcL Normal 0.0 - 0.7 10^3/mcL AO Workflow SS Erythrocyte distribution width (RBC) [Ratio] 25.1 % High 11.5 - 15.5 % AO Workflow SS Estimated Glomerular Filtration Rate 50 ml/min/1.73sqm Invalid Interpretation Code AO Chemistry S Comment on above: Interpretive Data: Stages of Chronic Kidney Disease (CKD) Stage Description eGFR(ml/min/1.73 sq.m.) CKD 1 Normal kidney function or >=90 normal kindney function with possible kidney damage (ex. Proteinuria) CKD 2 Kidney damage with mild loss 60-89 of kidney function CKD 3a Mild to moderate loss of kidney 45-59 function CKD 3b Moderate to severe loss of 30-44 of kindey function CKD 4 Severe loss of kidney function 15-29 CKD 5 Kidney failure <15 Note: (go live 2024) the eGFR calculation was updated to the 2020 CKD-EPI creatinine equation without a race factor to calculate the eGFR results. Free T4 [Mass/Vol] 1.15 ng/dL Normal 0.76 - 1. 46 ng/dL AO ADM SS Globulin 3.3 G/dL Normal 1.5 - 3.8 G/dL AO ADM SS Glucose [Mass/Vol] 94 mg/dL Normal 83 - 110 mg/dL AO ADM SS Hematocrit (Bld) [Volume fraction] 36.6 % Normal 34.0 - 46.0 % AO Workflow SS Hemoglobin (Bld) [Mass/Vol] 11.7 G/dL Low 12.0 - 16.0 G/dL AO Workflow SS Lymphocytes (Bld) [#/Vol] 1.8 103/mcL Normal 0.9 - 4.3 10^3/mcL AO Workflow SS Lymphocytes/100 WBC (Bld) 32.0 % Normal 20.0 - 40.0 % AO Workflow SS MCH (RBC) [Entitic mass] 25.1 pg Low 27.0 - 33.0 pg AO Workflow SS MCHC 32.0 G/dL Normal 32.0 - 36.0 G/dL AO Workflow SS MCV (RBC) [Entitic vol] 78.7 fL Low 80.0 - 99.0 fL AO Workflow SS Microcytes Ql (Bld) 2+ *NA* (09/13/24 12:53 PM) Invalid Interpretation Code AO Workflow SS Monocytes (Bld) [#/Vol] 0.9 103/mcL Normal 0.1 - 1.4 10^3/mcL AO Workflow SS Monocytes/100 WBC (Bld) 16.0 % High 2.0 - 13.0 % AO Workflow SS Natriuretic peptide.B prohormone N-Terminal [Mass/Vol] 235 pg/mL High 0 - 125 pg/mL AO ADM SS Comment on above: Interpretive Data: N T-proBNP results of less than 300 pg/mL effectively rules out acute congestive heart failure with 99% negative predictive value. Neutrophils (Bld) [#/Vol] 2.9 103/mcL Normal 2.3 - 8.1 10^3/mcL AO Workflow SS Neutrophils/100 WBC (Bld) 52.0 % Normal 50.0 - 75.0 % AO Workflow SS Nucleated RBC 0.0 /100 WBC Invalid Interpretation Code AO Workflow SS Platelet mean volume (Bld) [Entitic vol] 7.0 fL Normal 6.6 - 10.5 fL AO Workflow SS Platelets (Bld) [#/Vol] 283 103/mcL Normal 150 - 450 10^3/mcL AO Workflow SS Platelets LM Ql (Bld) Normal *NA* (09/13/24 12:53 PM) Invalid Interpretation Code AO Workflow SS Potassium [Moles/Vol] 3.8 mmol/L Normal 3.5 - 5.1 mmol/L AO ADM SS Protein [Mass/Vol] 6.9 G/dL Normal 6.4 - 8.2 G/dL AO ADM SS RBC (Bld) [#/Vol] 4.66 106/mcL Normal 4.10 - 5.3 0 10^6/mcL AO Workflow SS Sodium [Moles/Vol] 139 mmol/L Normal 136 - 145 mmol/L AO ADM SS TSH Qn 0.88 m[IU]/L Normal 0.36 - 3.74 mcIU/mL AO ADM SS Urea nitrogen [Mass/Vol] 8 mg/dL Normal 7 - 18 mg/dL AO ADM SS Urea nitrogen/Creatinine [Mass ratio] 7 ratio Normal 7 - 27 ratio AO ADM SS WBC (Bld) [#/Vol] 5.6 103/mcL Normal 4.5 - 10.8 10^3/mcL AO Workflow SS Laboratory - Hematology and Cell countsOrdered By: ED PROVIDER on 09-13-2024 Anisocytosis Ql (Bld) 1+ [facility] Lymphocytes Auto (Unsp spec) [#/Vol]Ordered By: ED PROVIDER on 09-13-2024 Lymphocytes (Bld) [#/Vol] 1.62 10*3/uL 0.83-4.51 [facility] Lymphocytes/100 WBC Auto (Un sp spec)Ordered By: ED PROVIDER on 09-13-2024 Lymphocytes/100 WBC (Bld) 29.3 % 19-41 [facility] M100.678on 09-13-2024 M100.678 SARS-CoV-2 (COVID 19) Negative INFLUENZA A Negative INFLUENZA B Negative RSV PCR Negative Normal [facility] Comment on above: Performed By: #### M [id number] ####[facility] [address] [place], [address] MCV (mean corpuscular volume ) determinationOrdered By: ED PROVIDER on 09-13-2024 MCV (RBC) [Entitic vol] 81.6 fL 81-99 [facility] Mean corpuscular hemoglobin (MCH) determinationOrdered By: ED PROVIDER on 09-13-2024 MCH (RBC) [Entitic mass] 24.7 pg Low 27.0-32.0 [facility] Mean corpuscular hemoglobin concentration (MCHC) determinationOrdered By: ED PROVIDER on 09-13-2024 MCHC (RBC) [Mass/Vol] 30.2 g/dL Low 32-36 [facility] Mean platelet volume determi nationOrdered By: ED PROVIDER on 09-13-2024 Platelet mean volume (Bld) [Entitic vol] 8.5 fL 6.2-12.0 [facility] Monocyte percentageOrdered B y: ED PROVIDER on 09-13-2024 Monocytes/100 WBC (Bld) 14.3 % High 0-10 [facility] [place] Neutrophil percentageOrdered By: ED PROVIDER on 09-13-2024 Neutrophils/100 WBC (Bld) 54.9 % 47-70 [facility] No Panel InformationOrdered By: Chris Maria on 09-13-2024 Troponin T High Sensitivity 19 ng/L High <14 [facility] Nucleated red blood cell per centageOrdered By: ED PROVIDER on 09-13-2024 Nucleated RBC/100 WBC (Bld) [Ratio] 0 % 0-5 [facility] PBNPon 09-13-2024 Natriuretic peptide B (Bld) [Mass/Vol] 235 pg/mL High 0-125 [facility] Comment on above: Result Comment: NT-p roBNP results of less than 300 pg/mL effectively rules out acute congestive heart failure with 99% negative predictive value. Performed By: #### G FR, TSH, FT4, DIFF, MORPH, CMP, CBC, PBNP #### [facility] [address] [place], [place] [address] Platelet countOrdered By: ED PROVIDER on 09-13-2024 Platelets (Bld) [#/Vol] 275 10*3/uL 150-450 [facility] RBC Auto (Bld) [#/Vol]Ordere d By: ED PROVIDER on 09-13-2024 RBC (Bld) [#/Vol] 4.62 10*6/uL 4.2-5.4 [facility] Serum glucose measurement (m ass/volume)Ordered By: ED PROVIDER on 09-13-2024 Glucose [Mass/Vol] 112 mg/dL High 70-99 [facility] Serum or plasma anion gap de termination (moles/volume)Ordered By: ED PROVIDER on 09-13-2024 Anion gap [Moles/Vol] 12 mmol/L 5-15 [facility] Serum or plasma calcium usman urement (mass/volume)Ordered By: ED PROVIDER on 09-13-2024 Calcium [Mass/Vol] 9.1 mg/dL 7.6-11.0 [facility] Serum or plasma creatinine m easurement (moles/volume)Ordered By: ED PROVIDER on 09-13-2024 Creatinine [Moles/Vol] 1.0 mg/dL 0.6-1.0 [facility] Serum or plasma potassium me asurementOrdered By: ED PROVIDER on 09-13-2024 Potassium [Moles/Vol] 4.1 mmol/L 3.3-5.1 [facility] Serum or plasma sodium measu rement (moles/volume)Ordered By: ED PROVIDER on 09-13-2024 Sodium [Moles/Vol] 139 mmol/L 133-145 [facility] Serum or plasma urea nitroge n measurement (mass/volume)Ordered By: ED PROVIDER on 09-13-2024 Urea nitrogen [Mass/Vol] 8 mg/dL 4-19 [facility] TSHon 09-13-2024 TSH Qn 0.88 m[IU]/L Normal 0.36-3.74 [facility] Comment on above: Performed By: #### G FR, TSH, FT4, DIFF, MORPH, CMP, CBC, PBNP #### [address] [address] TSH DL <= 0.005 mIU/L QnOrde red By: Chris Maria on 09-13-2024 Thyroid Stimulating Hormone (TSH) 0.644 uIU/mL 0.300-4.200 [facility] TSH Qn 0.644 uIU/mL 0.300-4.200 [facility] Target cell detectionOrdered By: ED PROVIDER on 09-13-2024 Target cells LM Ql (Bld) 1+ [facility] Target cells LM Ql (Bld)Orde red By: ED PROVIDER on 09-13-2024 Target Cells 1+ [facility] Thyroid Stim Hormone (TSH)on 09-13-2024 TSH 0.644 uIU/mL Normal 0.300-4.200 [facility] Comment on above: Performed By: #### L 501.9520 ####[facility] [address] [place], [address] White blood cell (WBC) count Ordered By: ED PROVIDER on 09-13-2024 WBC (Bld) [#/Vol] 5.5 10*3/uL 4.4-11.0 [facility] CNOVon 09-02-2024 CNOV Office Visit (UCWSTR) KARINA FERNANDO ([id number]) 1950 F Date Time Provider Department 09/02/24 1:15 PM [facility] During your visit today, we recorded the following information about you: Temperature Pulse Respiration Blood pressure 98.9 degrees 90/minute 18/minute 134/82 Weight 77.7 kg Dung Littlejohn MD 09/02/2024 3:54 PM Addendum Patient presents with: Sinus Problem: sinus pressure, drainage, sob x 3 days HPI: Feeling sick starting 3 days ago. She was treated in the ED in June for asthmatic bronchitis Positive symptoms: Cough, Shortness of breath, Wheezing, resolved Chest pain, Sore throat, Sinus pressure, Nasal Congestion, Rhinorrhea, Post nasal drainage, Chills, Malaise, Fatigue, Headache, Negative symptoms: Nausea, Vomiting, Diarrhea, OTC: Cold Medicine, uses nebulizer 4 times a day (routine scheduled) MEDICATIONS: Current Outpatient Medications Medication Sig oxyCODONE-acetaminop hen (PERCOCET) 5-325 mg tablet Take by mouth every 8 hours as needed for pain. hydroCHLOROthiazide 25 mg tablet Take 25 mg by mouth. busPIRone (BUSPAR) 10 mg tablet Buspirone Hcl Active 10 MG THREE TIMES A DAY August 24, 2019 9:19am traZODone (DESYREL) 50 mg tablet Trazodone Active 50 MG AT BEDTIME August 24, 2019 9:19am valACYclovir (VALTREX) 500 mg tablet Take 500 mg by mouth once daily. CALCIUM-VITAMIN D3 ORAL Take by mouth. Ascorbic Acid 500 mg chew Take 500 mg by mouth once daily. torsemide (DEMADEX) 20 mg tablet Take 1 tablet by mouth once daily. pantoprazole sodium(PROTONIX 40 MG TAB) Take by mouth. ALBUTEROL SULFATE HFA 90 MCG/ACTUATION AEROSOL INHALER take 2 puffs four times daily. citalopram (CELEXA) 20 mg ORAL Tab Take by mouth. doxycycline monohydrate (MONODOX) 100 mg capsule Take 1 capsule by mouth two times a day for 5 days. predniSONE (DELTASONE) 20 mg tablet Take 1 tablet by mouth two times a day for 5 days. benzonatate (TESSALON PERLES) 100 mg capsule Take 1 capsule by mouth three times daily as needed for cough. (Patient not taking: Reported on 12/20/2022) fluticasone (FLONASE) 50 mcg/actuation nasal spray Use 2 Sprays in each nostril once daily. Rinse mouth after use. (Patient not taking: Reported on 12/17/2020 ) guaiFENesin (MUCINEX) 600 mg 12 hr tablet Take 2 tablets by mouth twice daily. (Patient not taking: Reported on 11/29/2018 ) fluticasone (FLOVENT HFA) 110 mcg/actuation inhaler Inhale 2 Puffs as instructed twice daily. (Patient not taking: Reported on 11/29/2018 ) FLUoxetine (PROZAC) 10 mg capsule Take 10 mg by mouth once daily. (Patient not taking: Reported on 12/17/2020 ) FERROUS SULFATE (FE-TABS ORAL) Take by mouth. (Patient not taking: Reported on 12/17/2020 ) lisinopril (ZESTRIL, PRINIVIL) 10 mg tablet Take 10 mg by mouth once daily. (Patient not taking: Reported on 12/17/2020 ) lovastatin (MEVACOR) 20 mg tablet Take 20 mg by mouth daily at bedtime. (Patient not taking: Reported on 12/17/2020 ) diazePAM (VALIUM) 5 mg tablet Take 5 mg by mouth every 6 hours as needed. (Patient not taking: Reported on 12/17/2020) oxyCODONE ER (OXYCONTIN) 40 mg Tb12 Take 1 tablet by mouth every 12 hours. (Patient not taking: Reported on 07/18/2018 ) oxycodone hcl/acetaminophen(PE RCOCET 10 MG-325 MG TAB) Take one tablet as needed. (Patient not taking: No sig reported) No current facility-administere d medications for this visit. ALLERGIES: ALLERGIES Allergen Reactions Alendronate Myalgia, Other: See Comments Other reaction(s): Muscle ache, Swelling / lump finding Ceclor [Cefaclor] Hives Dyazide [Triamteren* Rash Eryc [Erythromycin] GI Upset Famciclovir Unknown Other reaction(s): hives Gabapentin Unknown Other reaction(s): Unknown Penicillins Hives Percodan [Oxycodone* Vomiting Ultram [Tramadol Hc* Vomiting VITALS: BP 134/82 Pulse 90 Temp 37.2 ?C (98.9 ?F) Resp 18 Wt 77.7 kg (171 lb 4.8 oz) SpO2 94% PHYSICAL EXAM: GEN: mildly ill appearing HEENT: PERRL, EOMI, conjunctiva clear Ears: canals clear. TMs without erythema, bulge, or effusion Sinuses: tender left frontal sinus, tender maxillary sinuses Throat: moist mucous membranes, mild erythema, no exudate Neck: supple, mildly enlarged thyroid, no lymphadenopathy HEART: regular rate, regular rhythm, no murmurs LUNGS: diminished breath sounds, bilateral wheezes, no increased WOB ASSESSMENT/PLAN: 1. COPD with exacerbation (HCC) - ICD9: 491.21, ICD10: J44.1 (primary diagnosis) 2. URI, acute - ICD9: 465.9, ICD10: J06.9 - suspect viral URI, differential includes influenza and COVID-19. - Discussed supportive care treatment with home isolation (fever free for 24 hours and improving symptoms), rest, cold medicine, and analgesia. - Red flags to seek further treatment include chest pain, shortness of breath, and lethargy; in the ER if severe. - COVID AND INFLUEN (more content not included)... Normal [facility] Culture, Blood (WB)on 2023 CUB Blood cultures x2, from two different sites No growth in 5 days. Normal [facility] Comment on above: Performed By: #### M 200.1000, L503.6005 ####[facility] [address] [place], [address] 12 Lead EKGon 06-20-2024 12 Lead EKG Normal [facility] Absolute neutrophil countOrd ered By: Anh Irene on 06-20-2024 Neutrophils (Bld) [#/Vol] 4.2 10*3/uL 2.0-7.7 [facility] Basic Metabolic Profile (BMP )on 06-20-2024 BUN/CRE 5.2 RATIO Low 10-20 [facility] Comment on above: Order Comment: 'TROP ' Serial specimen #1, #2 or #3: 1 Performed By: #### L 300.8000, L100.0100, L500.2500, L501.4020 ####[facility] [address] [place], [address] CA,Total 9.3 mg/dL Normal 8.5-10.1 [facility] Comment on above: Order Comment: 'TROP ' Serial specimen #1, #2 or #3: 1 Performed By: #### L 300.8000, L100.0100, L500.2500, L501.4020 ####[facility] [address] [place], [address] Chloride [Moles/Vol] 110 mmol/L High 98-107 [facility] Comment on above: Order Comment: 'TROP ' Serial specimen #1, #2 or #3: 1 Performed By: #### L 300.8000, L100.0100, L500.2500, L501.4020 ####[facility] [address] [place], [address] CO2 [Moles/Vol] 27.0 mmol/L Normal 21.0-32.0 [facility] Comment on above: Order Comment: 'TROP ' Serial specimen #1, #2 or #3: 1 Performed By: #### L 300.8000, L100.0100, L500.2500, L501.4020 ####[facility] [address] [place], [address] Creatinine [Mass/Vol] 0.96 mg/dL Normal 0.55-1.02 [facility] Comment on above: Order Comment: 'TROP ' Serial specimen #1, #2 or #3: 1 Result Comment: The validity of the calculated GFR GFRAA in patients over70 years has not been determined. Clinical correlation isessential. Performed By: #### L 300.8000, L100.0100, L500.2500, L501.4020 ####[facility] [address] [place], [address] ECRCL 51.19 ml/min Normal [facility] Comment on above: Order Comment: 'TROP ' Serial specimen #1, #2 or #3: 1 Performed By: #### L 300.8000, L100.0100, L500.2500, L501.4020 ####[facility] [address] [place], [address] EST GFR - AA 73 mL/min Normal >60 [facility] Comment on above: Order Comment: 'TROP ' Serial specimen #1, #2 or #3: 1 Result Comment: Afri can [place] GFR Calc Performed By: #### L 300.8000, L100.0100, L500.2500, L501.4020 ####[facility] [address] [place], [address] GAP 6 Normal 5-15 [facility] Comment on above: Order Comment: 'TROP ' Serial specimen #1, #2 or #3: 1 Performed By: #### L 300.8000, L100.0100, L500.2500, L501.4020 ####[facility] [address] [place], [address] GFR/1.73 sq M.predicted among non-blacks MDRD (S/P/Bld) [Vol rate/Area] 60 mL/min/{1.73_m2} Normal >60 [facility] Comment on above: Order Comment: 'TROP ' Serial specimen #1, #2 or #3: 1 Result Comment: Non- GFR Calc Performed By: #### L 300.8000, L100.0100, L500.2500, L501.4020 ####[facility] [address] [place], [address] Glucose [Mass/Vol] 105 mg/dL Normal 74-106 [facility] Comment on above: Order Comment: 'TROP ' Serial specimen #1, #2 or #3: 1 Result Comment: Fast ing Glucose result from 100 to 125 mg/dLsuggests IMPAIRED HOMEOSTASIS per A.D.A. criteria. Performed By: #### L 300.8000, L100.0100, L500.2500, L501.4020 ####[facility] [address] [place], [address] Potassium [Moles/Vol] 3.1 mmol/L Low 3.5-5.1 [facility] Comment on above: Order Comment: 'TROP ' Serial specimen #1, #2 or #3: 1 Performed By: #### L 300.8000, L100.0100, L500.2500, L501.4020 ####[facility] [address] [place], [address] Sodium [Moles/Vol] 143 mmol/L Normal 136-145 [facility] Comment on above: Order Comment: 'TROP ' Serial specimen #1, #2 or #3: 1 Performed By: #### L 300.8000, L100.0100, L500.2500, L501.4020 ####[facility] [address] [place], [address] Urea nitrogen [Mass/Vol] 5 mg/dL Low 7-18 [facility] Comment on above: Order Comment: 'TROP ' Serial specimen #1, #2 or #3: 1 Performed By: #### L 300.8000, L100.0100, L500.2500, L501.4020 ####[facility] [address] [place], [address] Basophil percentageOrdered B y: Remus Teto on 06-20-2024 Basophils/100 WBC (Bld) 0.4 % 0-1 [facility] [place] Blood cultureOrdered By: Rem us Ungbuck on 06-20-2024 Bacteria identified Cx Nom (Bld) No growth in 5 days. [facility] Bacteria identified Cx Nom (Bld) No growth in 5 days. [facility] Blood urea nitrogen (BUN)/cr eatinine ratioOrdered By: Anh Irene on 06-20-2024 Urea nitrogen/Creatinine [Mass ratio] 5.2 mg/mg Low 10-20 [facility] CBC W/Diff, Automatedon 12-0 Absolute Lymph 1.95 X10 3/uL Normal 0.83-4.51 [facility] Comment on above: Performed By: #### L 300.8000, L100.0100, L500.2500, L501.4020 ####[facility] [address] [place], [address] Absolute Neut 4.2 X10 3/uL Normal 2.0-7.7 [facility] Comment on above: Performed By: #### L 300.8000, L100.0100, L500.2500, L501.4020 ####[facility] [address] [place], [address] Basophils/100 WBC (Bld) 0.4 % Normal 0-1 [facility] Comment on above: Performed By: #### L 300.8000, L100.0100, L500.2500, L501.4020 ####[facility] [address] [place], [address] Eosinophils/100 WBC (Bld) 0.1 % Normal 0-5 [facility] Comment on above: Performed By: #### L 300.8000, L100.0100, L500.2500, L501.4020 ####[facility] [address] [place], [address] Erythrocyte distribution width (RBC) [Ratio] 19.7 % High 11.6-14.6 [facility] Comment on above: Performed By: #### L 300.8000, L100.0100, L500.2500, L501.4020 ####[facility] [address] [place], [address] Hematocrit (Bld) [Volume fraction] 32.8 % Low 37-47 [facility] Comment on above: Performed By: #### L 300.8000, L100.0100, L500.2500, L501.4020 ####[facility] [address] [place], [address] Hemoglobin (Bld) [Mass/Vol] 9.2 g/dL Low 12.0-15.0 [facility] Comment on above: Performed By: #### L 300.8000, L100.0100, L500.2500, L501.4020 ####[facility] [address] [place], [address] IG% 0.400 Normal 0.0-0.9 [facility] Comment on above: Result Comment: IG% - Immature Granulocytes (promyelocytes, myelocytes andmetamyelocytes) > 1% indicates that a LEFT SHIFT is Present. Performed By: #### L 300.8000, L100.0100, L500.2500, L501.4020 ####[facility] [address] [place], [address] Lymphocytes/100 WBC (Bld) 27.8 % Normal 19-41 [facility] Comment on above: Performed By: #### L 300.8000, L100.0100, L500.2500, L501.4020 ####[facility] [address] [place], [address] MCH (RBC) [Entitic mass] 20.4 pg Low 27.0-32.0 [facility] Comment on above: Performed By: #### L 300.8000, L100.0100, L500.2500, L501.4020 ####[facility] [address] [place], [address] MCHC (RBC) [Mass/Vol] 28.0 g/dL Low 32-36 [facility] Comment on above: Performed By: #### L 300.8000, L100.0100, L500.2500, L501.4020 ####[facility] [address] [place], [address] MCV (RBC) [Entitic vol] 72.7 fL Low 81-99 [facility] Comment on above: Performed By: #### L 300.8000, L100.0100, L500.2500, L501.4020 ####[facility] [address] [place], [address] Monocytes/100 WBC (Bld) 11.0 % High 0-10 [facility] Comment on above: Performed By: #### L 300.8000, L100.0100, L500.2500, L501.4020 ####[facility] [address] [place], [address] Neutrophils/100 WBC (Bld) 60.3 % Normal 47-70 [facility] Comment on above: Performed By: #### L 300.8000, L100.0100, L500.2500, L501.4020 ####[facility] [address] [place], [address] Nucleated RBC (Bld) [#/Vol] 0 10*3/uL Normal 0-5 [facility] Comment on above: Performed By: #### L 300.8000, L100.0100, L500.2500, L501.4020 ####[facility] [address] [place], [address] Platelet mean volume (Bld) [Entitic vol] 8.4 fL Normal 6.2-12.0 [facility] Comment on above: Performed By: #### L 300.8000, L100.0100, L500.2500, L501.4020 ####[facility] [address] [place], [address] Platelets (Bld) [#/Vol] 332 10*3/uL Normal 150-450 [facility] Comment on above: Performed By: #### L 300.8000, L100.0100, L500.2500, L501.4020 ####[facility] [address] [place], [address] RBC (Bld) [#/Vol] 4.51 10*6/uL Normal 4.2-5.4 [facility] Comment on above: Performed By: #### L 300.8000, L100.0100, L500.2500, L501.4020 ####[facility] [address] [place], [address] RDW SD 51.4 fl High 35.1-43.9 [facility] Comment on above: Performed By: #### L 300.8000, L100.0100, L500.2500, L501.4020 ####[facility] [address] [place], [address] WBC (Bld) [#/Vol] 7.0 10*3/uL Normal 4.4-11.0 [facility] Comment on above: Performed By: #### L 300.8000, L100.0100, L500.2500, L501.4020 ####[facility] [address] [place], [place], [id number] Carbon dioxide measurementOr dered By: Anh Irene on 06-20-2024 CO2 [Moles/Vol] 27.0 mmol/L 21.0-32.0 [facility] Chest 1 View (Portable)on Chest 1 View (Portable) Normal [facility] [place] Chloride measurementOrdered By: Anh Irene on 06-20-2024 Chloride [Moles/Vol] 110 mmol/L High 98-107 [facility] D-Dimer Quantitative (DVT/PE )on 06-20-2024 D-DIMER QUANT 0.46 FEU/ug/m Normal 0.27-0.49 [facility] Comment on above: Result Comment: NORM AL D-Dimer level (<0.50) indicates no DVT or PE. Performed By: #### L 300.8000, L100.0100, L500.2500, L501.4020 ####[facility] [address] [place], [place], [address] D-dimer measurement for deep venous thrombosisOrdered By: Anh Irene on 06-20-2024 D-Dimer Quantitative (PE/DVT) 0.46 FEU/ug/m 0.27-0.49 [facility] Comment on above: NORMAL D-Dimer level (<0.50) indicates no DVT or PE. Emergency Department Summary on 06-20-2024 Emergency Department Summary Normal [facility] Eosinophil percentageOrdered By: Anh Irene on 06-20-2024 Eosinophils/100 WBC (Bld) 0.1 % 0-5 [facility] Erythrocyte distribution wid th ratioOrdered By: Anh Irene on 06-20-2024 Erythrocyte distribution width (RBC) [Ratio] 19.7 % High 11.6-14.6 [facility] Erythrocyte distribution wid th standard deviationOrdered By: Anh Irene on 06-20-2024 Erythrocyte distribution width (RBC) [Entitic vol] 51.4 fL High 35.1-43.9 [facility] Estimated glomerular filtrat ion rate (GFR) AmericanOrdered By: Anh Irene on 06-20-2024 Estimated GFR (MDRD) Amer 73 mL/min >60 [facility] Comment on above: GFR Calc Estimation of creatinine nikki aranceOrdered By: Anh Irene on 06-20-2024 Estimated Creatinine Clearance Calc 51.19 ml/min [facility] Glomerular filtration rate ( GFR) estimationOrdered By: Anh Irene on 06-20-2024 Estimated GFR (MDRD) Non-Af Amer 60 mL/min >60 [facility] Comment on above: Non- GFR Calc Glucose measurementOrdered B y: Anh Irene on 06-20-2024 Glucose [Mass/Vol] 105 mg/dL 74-106 [facility] Comment on above: Fasting Glucose resu lt from 100 to 125 mg/dL suggests IMPAIRED HOMEOSTASIS per A.D.A. criteria. Hematocrit Auto (Bld) [Volum e fraction]Ordered By: Anh Irene on 06-20-2024 Hematocrit (Bld) [Volume fraction] 32.8 % Low 37-47 [facility] Hemoglobin measurementOrdere d By: Anh Irene on 06-20-2024 Hemoglobin (Bld) [Mass/Vol] 9.2 g/dL Low 12.0-15.0 [facility] Immature granulocytes/100 WB C Auto (Bld)Ordered By: Anh Irene on 06-20-2024 Immature granulocytes/100 WBC (Bld) 0.400 % 0.0-0.9 [facility] Comment on above: IG% - Immature Granu locytes (promyelocytes, myelocytes and metamyelocytes) > 1% indicates that a LEFT SHIFT is Present. Influenza virus A and B and SARS-CoV-2 (COVID-19) and Respiratory syncytial virus RNAOrdered By: Anh Irene on 06-20-2024 SARS-CoV-2 (COVID-19) RNA MIGUE+probe Ql (Unsp spec) [facility] L501.4020on 06-20-2024 TROPONIN-I HS 7 pg/mL Normal 3.0-54.0 [facility] Comment on above: Order Comment: 'TROP ' Serial specimen #1, #2 or #3: 1 Result Comment: Moira hinds Note: New Test Units and Gender Specific Reference Ranges. For more information see Policy Stat Procedure [place] High Sensitivity Troponin (TNIH) and attachments. Performed By: #### L 300.8000, L100.0100, L500.2500, L501.4020 ####[facility] [address] [place], [address] Lactic Acidon 06-20-2024 Lactate [Moles/Vol] 2.1 mmol/L Invalid Interpretation Code 0.4-1.9 [facility] Comment on above: Order Comment: PATIE NT DISCHARGED PRIOR TO THIS ORDER REFLEXINGY Result Comment: HERMES ENT DISCHARGED PRIOR TO THIS ORDER REFLEXINGCritical Result(s) Called at: 10:07:36 06/20/2024 by:Valery Howard. Results read back by same. Performed By: #### M 200.1000, L503.6005 ####[facility] [address] [place], [address] Lymphocytes Auto (Unsp spec) [#/Vol]Ordered By: Anh Irene on 06-20-2024 Lymphocytes (Bld) [#/Vol] 1.95 10*3/uL 0.83-4.51 [facility] Lymphocytes/100 WBC Auto (Un sp spec)Ordered By: Anh Irene on 06-20-2024 Lymphocytes/100 WBC (Bld) 27.8 % 19-41 [facility] M100.678on 06-20-2024 M100.678 Pending SARS-CoV-2 (COVID 19) Negative INFLUENZA A Negative INFLUENZA B Negative RSV PCR Negative Normal [facility] Comment on above: Performed By: #### M 100.678 ####[facility] [address] [place], [address] MCV (mean corpuscular volume ) determinationOrdered By: Anh Irene on 06-20-2024 MCV (RBC) [Entitic vol] 72.7 fL Low 81-99 [facility] [place] Mean corpuscular hemoglobin (MCH) determinationOrdered By: Remus Irene on 06-20-2024 MCH (RBC) [Entitic mass] 20.4 pg Low 27.0-32.0 [facility] Mean corpuscular hemoglobin concentration (MCHC) determinationOrdered By: Remus Ungbuck on 06-20-2024 MCHC (RBC) [Mass/Vol] 28.0 g/dL Low 32-36 [facility] Mean platelet volume determi nationOrdered By: Rem Ungbuck on 06-20-2024 Platelet mean volume (Bld) [Entitic vol] 8.4 fL 6.2-12.0 [facility] Monocyte percentageOrdered B y: Remus Ungbuck on 06-20-2024 Monocytes/100 WBC (Bld) 11.0 % High 0-10 [place] Neutrophil percentageOrdered By: Anh Ungbuck on 06-20-2024 Neutrophils/100 WBC (Bld) 60.3 % 47-70 [facility] Nucleated red blood cell per centageOrdered By: Anh Ungbuck on 06-20-2024 Nucleated RBC/100 WBC (Bld) [Ratio] 0 % 0-5 [facility] Platelet countOrdered By: Lili Irene on 06-20-2024 Platelets (Bld) [#/Vol] 332 10*3/uL 150-450 [facility] Potassium measurementOrdered By: Anh Irene on 06-20-2024 Potassium [Moles/Vol] 3.1 mmol/L Low 3.5-5.1 [facility] RBC Auto (Bld) [#/Vol]Ordere d By: Anh Ungbuck on 06-20-2024 RBC (Bld) [#/Vol] 4.51 10*6/uL 4.2-5.4 [facility] Serum anion gap measurementO rdered By: Rem Ungbuck on 06-20-2024 Anion gap [Moles/Vol] 6 mmol/L 5-15 [facility] Serum or plasma calcium usman urement (mass/volume)Ordered By: Anh Irene on 06-20-2024 Calcium [Mass/Vol] 9.3 mg/dL 8.5-10.1 [facility] Serum or plasma creatinine m easurement (mass/volume)Ordered By: Anh Alvaresbuck on 06-20-2024 Creatinine [Mass/Vol] 0.96 mg/dL 0.55-1.02 [facility] Comment on above: The validity of the calculated GFR & GFRAA in patients over 70 years has not been determined. Clinical correlation is essential. Serum or plasma urea nitroge n measurement (mass/volume)Ordered By: [facility] 06-20-2024 Urea nitrogen [Mass/Vol] 5 mg/dL Low 7-18 [facility] Sodium levelOrdered By: Remu s Teto on 06-20-2024 Sodium [Moles/Vol] 143 mmol/L 136-145 [facility] Troponin IOrdered By: [facility] on 06-20-2024 Troponin I High Sensitivity 7 pg/mL 3.0-54.0 [facility] Comment on above: Please Note: New [place] t Units and Gender Specific Reference Ranges. For more information see Policy Stat Procedure [place] High Sensitivity Troponin (TNIH) and attachments. White blood cell (WBC) count [facility] WBC (Bld) [#/Vol] 7.0 10*3/uL 4.4-11.0 [facility] CNOVon 05-31-2024 CNOV Office Visit (UCWSTR) KARINA FERNANDO ([id number]) 1950 F Date Time Provider Department 05/31/24 4:45 PM SERGIO MOHR [facility] During your visit today, we recorded the following information about you: Temperature Pulse Respiration Blood pressure 99.1 degrees 94/minute 18/minute 140/84 Weight 75.4 kg Sergio Mohr, FRANK 05/31/2024 5:48 PM Signed This note was created using NoteWriter. Subjective Karina Fernando is a 73 year old female. HPI Presents with cough and sinus congestion over the past 2 to 3 days. She had a sinus infection at the end of April and was treated with doxycycline. She states that had completely cleared. She was around her granddaughter who had a cold recently and then she started to feel ill. She has had bodyaches as well. No fever. No vomiting or diarrhea. She does have a history of COPD. Review of Systems Constitutional: Positive for chills and fatigue. Negative for fever. HENT: Positive for congestion, sinus pressure and sinus pain. Respiratory: Positive for cough. Negative for chest tightness, shortness of breath and wheezing. Cardiovascular: Negative. Gastrointestinal: Negative. Musculoskeletal: Positive for myalgias. Neurological: Positive for headaches. All other systems reviewed and are negative. PAST MEDICAL HISTORY Diagnosis Date Esophageal reflux Gastroesophageal reflux Goiter, unspecified Goiter Myalgia and myositis, unspecified Fibromyalgia (myalgia and myositis) Obstructive chronic bronchitis with exacerbation (HCC) COPD Pain in joint, site unspecified Joint Pain Unspec PMH - PAST MEDICAL HISTORY OF Arthritis in knees Tobacco use disorder Current Outpatient Medications Medication Sig Dispense Refill oxyCODONE-acetaminop hen (PERCOCET) 5-325 mg tablet Take by mouth every 8 hours as needed for pain. hydroCHLOROthiazide 25 mg tablet Take 25 mg by mouth. busPIRone (BUSPAR) 10 mg tablet Buspirone Hcl Active 10 MG THREE TIMES A DAY August 24, 2019 9:19am traZODone (DESYREL) 50 mg tablet Trazodone Active 50 MG AT BEDTIME August 24, 2019 9:19am valACYclovir (VALTREX) 500 mg tablet Take 500 mg by mouth once daily. CALCIUM-VITAMIN D3 ORAL Take by mouth. Ascorbic Acid 500 mg chew Take 500 mg by mouth once daily. pantoprazole sodium(PROTONIX 40 MG TAB) Take by mouth. 0 ALBUTEROL SULFATE HFA 90 MCG/ACTUATION AEROSOL INHALER take 2 puffs four times daily. 0 doxycycline (VIBRA-TABS) 100 mg tablet Take 1 tablet by mouth two times a day for 7 days. 14 tablet 0 benzonatate (TESSALON PERLES) 100 mg capsule Take 1 capsule by mouth three times daily as needed for cough. (Patient not taking: Reported on 12/20/2022) 20 capsule 0 fluticasone (FLONASE) 50 mcg/actuation nasal spray Use 2 Sprays in each nostril once daily. Rinse mouth after use. (Patient not taking: Reported on 12/17/2020 ) 1 Bottle 0 guaiFENesin (MUCINEX) 600 mg 12 hr tablet Take 2 tablets by mouth twice daily. (Patient not taking: Reported on 11/29/2018 ) 60 tablet 0 fluticasone (FLOVENT HFA) 110 mcg/actuation inhaler Inhale 2 Puffs as instructed twice daily. (Patient not taking: Reported on 11/29/2018 ) 1 Inhaler 5 FLUoxetine (PROZAC) 10 mg capsule Take 10 mg by mouth once daily. (Patient not taking: Reported on 12/17/2020 ) FERROUS SULFATE (FE-TABS ORAL) Take by mouth. (Patient not taking: Reported on 12/17/2020 ) lisinopril (ZESTRIL, PRINIVIL) 10 mg tablet Take 10 mg by mouth once daily. (Patient not taking: Reported on 12/17/2020 ) lovastatin (MEVACOR) 20 mg tablet Take 20 mg by mouth daily at bedtime. (Patient not taking: Reported on 12/17/2020 ) diazePAM (VALIUM) 5 mg tablet Take 5 mg by mouth every 6 hours as needed. (Patient not taking: Reported on 12/17/2020) torsemide (DEMADEX) 20 mg tablet Take 1 tablet by mouth once daily. (Patient not taking: Reported on 11/29/2018 ) 0 oxyCODONE ER (OXYCONTIN) 40 mg Tb12 Take 1 tablet by mouth every 12 hours. (Patient not taking: Reported on 07/18/2018 ) 0 oxycodone hcl/acetaminophen(PE RCOCET 10 MG-325 MG TAB) Take one tablet as needed. (Patient not taking: No sig reported) 0 citalopram (CELEXA) 20 mg ORAL Tab Take one(1) tablet daily. (Patient not taking: ) 0 No current facility-administere d medications for this visit. PAST SURGICAL HISTORY Procedure Laterality Date APPENDECTOMY CARPAL TUNNEL RIGHT WRIST PAST SURGICAL HISTORY OF benign cysts removed from both breast PAST SURGICAL HISTORY OF Major surgery on back,metal rods and plate PAST SURGICAL HISTORY OF Broken right foot FAMILY HISTORY Problem Relation Age of Onset Alzheimer's Disease Maternal Aunt Allergies Mother iodine Arthritis Mother Arthritis Maternal Grandmother Cancer Maternal Grandfather brain cancer Diabetes Brother diet controllled Emphysema Father Heart Father heart attack Hypertension Mother Lipid (more content not included)... Normal [facility] XR CHEST 2V FRONTAL/LATon XR CHEST 2V FRONTAL/LAT * * *Final Repor t* * * DATE OF EXAM: May 31 2024 5:18PM WOX 5291 - XR CHEST 2V FRONTAL/LAT / PROCEDURE REASON: Acute cough * * * * Physician Interpretation * * * * EXAMINATION: CHEST RADIOGRAPH (2 VIEW FRONTAL and LATERAL) CLINICAL HISTORY: Acute cough MQ: XC2_6 EXAM DATE/TIME: 05/31/2024 5:18 PM COMPARISON: 01/14/2021 RESULT: Lines, tubes, and devices: None. Lungs and pleura: Mild left base atelectasis or infiltrate No lung mass. No pleural effusion. No pneumothorax. Cardiomediastinal silhouette: Normal cardiomediastinal silhouette. Bones and soft tissues: No, healed left rib fractures. Hiatal hernia. IMPRESSION: Mild left base atelectasis or infiltrate Steeping Press Tender: AMISHA Transcribe Date/Time: May 31 2024 5:27P Dictated by : JOSELYN VIDALES MD This examination was interpreted and the report reviewed and electronically signed by: JOSELYN VIDALES MD on May 31 2024 5:27PM EST [id number] Normal [facility] XR Chest PA and Lateralon IMPRESSION: Mild left base atelectasis or infiltrate Steeping Press Tender: PSCB Transcribe Date/Time: May 31 2024 5:27P Dictated by : JOSELYN VIDALES MD This examination was interpreted and the report reviewed and electronically signed by: JOSELYN VIDALES MD on May 31 2024 5:27PM EST DIVISION OF RADIOLOGY * * *Final Report* * * DATE OF EXAM: May 31 2024 5:18PM WOX 5291 - XR CHEST 2V FRONTAL/LAT / PROCEDURE REASON: Acute cough * * * * Physician Interpretation * * * * EXAMINATION: CHEST RADIOGRAPH (2 VIEW FRONTAL & LATERAL) CLINICAL HISTORY: Acute cough MQ: XC2_6 EXAM DATE/TIME: 05/31/2024 5:18 PM COMPARISON: 01/14/2021 RESULT: Lines, tubes, and devices: None. Lungs and pleura: Mild left base atelectasis or infiltrate No lung mass. No pleural effusion. No pneumothorax. Cardiomediastinal silhouette: Normal cardiomediastinal silhouette. Bones and soft tissues: No, healed left rib fractures. Hiatal hernia. DIVISION OF RADIOLOGY Provider, [facility] [place] - 05/31/2024 * * *Final Report* * * DATE OF EXAM: May 31 2024 5:18PM WOX 5291 - XR CHEST 2V FRONTAL/LAT / PROCEDURE REASON: Acute cough * * * * Physician Interpretation * * * * EXAMINATION: CHEST RADIOGRAPH (2 VIEW FRONTAL & LATERAL) CLINICAL HISTORY: Acute cough MQ: XC2_6 EXAM DATE/TIME: 05/31/2024 5:18 PM COMPARISON: 01/14/2021 RESULT: Lines, tubes, and devices: None. Lungs and pleura: Mild left base atelectasis or infiltrate No lung mass. No pleural effusion. No pneumothorax. Cardiomediastinal silhouette: Normal cardiomediastinal silhouette. Bones and soft tissues: No, healed left rib fractures. Hiatal hernia. IMPRESSION IMPRESSION: Mild left base atelectasis or infiltrate Steeping Press Tender: AMISHA Transcribe Date/Time: May 31 2024 5:27P Dictated by : JOSELYN VIDALES MD This examination was interpreted and the report reviewed and electronically signed by: JOSELYN VIDALES MD on May 31 2024 5:27PM [facility] Radiology Study observation (narrative) Sudeep rodney [facility] XR Chest PA and LateralOrder ed By: [facility] Provider on 05-31-2024 [facility] .Auto Diffon 02-11-2024 Basophil, Absolute 0.0 10 3/mcL Normal 0.0-0.2 [facility] ([place]) Comment on above: Performed By: #### M ALBR ###Kaila Ugarte [id number] [place], [place] [address] Basophils/100 WBC (Bld) 1.1 % Normal 0.0-2.5 A [facility] ([place]) Comment on above: Performed By: #### M ALBR #### [address] [address] Eosinophil, Absolute 0.0 10 3/mcL Normal 0.0-0.4 [facility] ([place]) Comment on above: Performed By: #### M ALBR #### [address] [address] Eosinophils/100 WBC (Bld) 1.0 % Normal 0.0-7.0 [facility] ([place]) Comment on above: Performed By: #### M ALBR #### [address] [address] Lymphocyte, Absolute 1.7 10 3/mcL Normal 0.8-3.9 [facility] ([place]) Comment on above: Performed By: #### M ALBR #### [address] [address] Lymphocytes/100 WBC (Bld) 51.4 % High 10.0-50.0 [facility] ([place]) Comment on above: Performed By: #### M ALBR #### [address] [address] Monocyte, Absolute 0.4 10 3/mcL Normal 0.2-1.0 [facility] ([place]) Comment on above: Performed By: #### M ALBR #### [address] [address] Monocytes/100 WBC (Bld) 11.4 % Normal 1.7-13.0 [facility] ([place]) Comment on above: Performed By: #### M ALBR #### [address] [address] Neutrophils/100 WBC (Bld) 35.1 % Low 37.0-80.0 [facility] ([place]) Comment on above: Performed By: #### M ALBR #### [address] [address] .GFRon 02-11-2024 GFR 62 ml/min/1.73sqm Normal [facility] ([place]) Comment on above: Result Comment: GFR Population mean for , Non- Americans Ages 20-29 = 116 mL/min/1.73 sq.m. Ages 30-39 = 107 mL/min/1.73 sq.m. Ages 40-49 = 99 mL/min/1.73 sq.m. Ages 50-59 = 93 mL/min/1.73 sq.m. Ages 60-69 = 85 mL/min/1.73 sq.m. Ages 70+ = 75 mL/min/1.73 sq.m. Chronic Kidney Disease: Less than 60 mL/min/1.73 square meters End Stage Renal Disease: Less than 15 mL/min/1.73 square meters Performed By: #### A MED, TROPHS, BMP, ADIFF, GFR, MORPH, PBSAMUEL, KAREN, CBC #### [address] [address] GFR Non- 51 ml/min/1.73sqm Normal [facility] ([place]) Comment on above: Result Comment: GFR Population mean for , Non- Americans Ages 20-29 = 116 mL/min/1.73 sq.m. Ages 30-39 = 107 mL/min/1.73 sq.m. Ages 40-49 = 99 mL/min/1.73 sq.m. Ages 50-59 = 93 mL/min/1.73 sq.m. Ages 60-69 = 85 mL/min/1.73 sq.m. Ages 70+ = 75 mL/min/1.73 sq.m. Chronic Kidney Disease: Less than 60 mL/min/1.73 square meters End Stage Renal Disease: Less than 15 mL/min/1.73 square meters Performed By: #### A MED, TROPHS, BMP, ADIFF, GFR, MORPH, PBSAMUEL, W, CBC #### [address] [address] .KARENon 02-11-2024 Monocyte Distribution Width 15.05 Normal 0.00-20.00 [facility] ([place]) Comment on above: Result Comment: For ED adult patients suspected of sepsis, MDW<=20.0 does not rule out sepsis or risk of sepsis Performed By: #### A MED, TROPHS, BMP, ADIFF, GFR, MORPH, PBSAMUEL, W, CBC #### [address] [address] .Morphon 02-11-2024 Platelet Estimate Normal Normal [facility]) Comment on above: Performed By: #### A MED, TROPHS, BMP, ADIFF, GFR, MORPH, PBNP, MDW, CBC #### [address] [address] RBC morphology finding Nom (Bld) Normal Normal [facility] ([place]) Comment on above: Performed By: #### A MED, TROPHS, BMP, ADIFF, GFR, MORPH, PBNP, MDW, CBC #### [place] [address] .NEUABSon 02-11-2024 Neutrophil, Absolute 1.2 10 3/mcL Low 2.9-6.2 [facility]) Comment on above: Performed By: #### M ALBR #### [place] [address] BMPon 02-11-2024 BUN/Creatinine Ratio 10 ratio Normal 7-27 [facility]) Comment on above: Performed By: #### A MED, TROPHS, BMP, ADIFF, GFR, MORPH, PBNP, MDW, CBC #### [address] [address] Calcium [Mass/Vol] 9.4 mg/dL Normal 8.4-10.2 [facility] ([place]) Comment on above: Performed By: #### A MED, TROPHS, BMP, ADIFF, GFR, MORPH, PBNP, MDW, CBC #### [address] [address] Chloride [Moles/Vol] 104 mmol/L Normal 98-107 [facility]) Comment on above: Performed By: #### A MED, TROPHS, BMP, ADIFF, GFR, MORPH, PBNP, MDW, CBC #### [place] [id number] CO2 [Moles/Vol] 32 mmol/L High 23-31 [facility] ([place]) Comment on above: Performed By: #### A MED, TROPHS, BMP, ADIFF, GFR, MORPH, PBNP, MDW, CBC #### [address] [address] Creatinine [Mass/Vol] 1.06 mg/dL High 0.55-1.02 [facility] ([place]) Comment on above: Performed By: #### A MED, TROPHS, BMP, ADIFF, GFR, MORPH, PBNP, MDW, CBC #### [address] [address] Electrolyte Balance 6.0 mEq/L Normal 4.0-15.0 [facility] ([place]) Comment on above: Performed By: #### A MED, TROPHS, BMP, ADIFF, GFR, MORPH, PBNP, MDW, CBC #### [address] [address] Glucose [Mass/Vol] 105 mg/dL Normal 83-110 [facility] ([place]) Comment on above: Performed By: #### A MED, TROPHS, BMP, ADIFF, GFR, MORPH, PBNP, MDW, CBC #### [address] [address] Potassium [Moles/Vol] 3.7 mmol/L Normal 3.5-5.1 [facility] ([place]) Comment on above: Performed By: #### A MED, TROPHS, BMP, ADIFF, GFR, MORPH, PBNP, MDW, CBC #### [address] [address] Sodium [Moles/Vol] 142 mmol/L Normal 136-145 [facility] ([place]) Comment on above: Performed By: #### A MED, TROPHS, BMP, ADIFF, GFR, MORPH, PBNP, MDW, CBC #### [address] [address] Urea nitrogen [Mass/Vol] 11 mg/dL Normal 7-18 [facility] ([place]) Comment on above: Performed By: #### A MED, TROPHS, BMP, ADIFF, GFR, MORPH, PBNP, MDW, CBC #### [place] [id number] CBCon 02-11-2024 Erythrocyte distribution width (RBC) [Ratio] 18.4 % High 11.5-14.5 [facility] ([place]) Comment on above: Performed By: #### A MED, TROPHS, BMP, ADIFF, GFR, MORPH, PBNP, MDW, CBC #### [place] [address] Hematocrit (Bld) [Volume fraction] 31.6 % Low 37.0-47.0 [facility] ([place]) Comment on above: Performed By: #### A MED, TROPHS, BMP, ADIFF, GFR, MORPH, PBNP, MDW, CBC #### [place] [address] Hgb 9.8 G/dL Low 12.0-16.0 [facility] ([place]) Comment on above: Performed By: #### A MED, TROPHS, BMP, ADIFF, GFR, MORPH, PBNP, MDW, CBC #### [place] [address] MCH (RBC) [Entitic mass] 22.6 pg Low 27.0-31.2 [facility] ([place]) Comment on above: Performed By: #### A MED, TROPHS, BMP, ADIFF, GFR, MORPH, PBNP, MDW, CBC #### [place] [address] MCHC 31.1 G/dL Low 33.0-37.0 [facility] ([place]) Comment on above: Performed By: #### A MED, TROPHS, BMP, ADIFF, GFR, MORPH, PBNP, MDW, CBC #### [place] [address] MCV (RBC) [Entitic vol] 72.5 fL Low 80.0-94.0 A [facility] ([place]) Comment on above: Performed By: #### A MED, TROPHS, BMP, ADIFF, GFR, MORPH, PBNP, MDW, CBC #### [address] [address] Platelet 310 10 3/mcL Normal 130-400 [facility] ([place]) Comment on above: Performed By: #### A MED, TROPHS, BMP, ADIFF, GFR, MORPH, PBNP, MDW, CBC #### [address] [address] Platelet mean volume (Bld) [Entitic vol] 6.5 fL Low 7.4-10.4 [facility] ([place]) Comment on above: Performed By: #### A MED, TROPHS, BMP, ADIFF, GFR, MORPH, PBNP, MDW, CBC #### [address] [address] RBC 4.36 10 6/mcL Normal 4.20-5.40 [facility] ([place]) Comment on above: Performed By: #### A MED, TROPHS, BMP, ADIFF, GFR, MORPH, PBNP, MDW, CBC #### [address] [address] WBC 3.3 10 3/mcL Low 4.6-10.8 [facility] ([place]) Comment on above: Performed By: #### A MED, TROPHS, BMP, ADIFF, GFR, MORPH, PBNP, MDW, CBC #### [address] [address] LABORATORYOrdered By: SYSTEM SYSTEM on 02-11-2024 Basophil, Absolute 0.0 103/mcL Normal 0.0 - 0.2 10^3/mcL AO Workflow SS Basophils/100 WBC (Bld) 1.1 % Normal 0.0 - 2.5 % AO Workflow SS Calcium [Mass/Vol] 9.4 mg/dL Normal 8.4 - 10. 2 mg/dL AO ADM SS Chloride [Moles/Vol] 104 mmol/L Normal 98 - 10 7 mmol/L AO ADM SS CO2 [Moles/Vol] 32 mmol/L High 23 - 31 mmol/L AO ADM SS Creatinine [Mass/Vol] 1.06 mg/dL High 0.55 - 1.02 mg/dL AO ADM SS Electrolyte Balance 6.0 mEq/L Normal 4.0 - 15 .0 mEq/L AO ADM SS Eosinophil, Absolute 0.0 103/mcL Normal 0.0 - 0 .4 10^3/mcL AO Workflow SS Eosinophils/100 WBC (Bld) 1.0 % Normal 0.0 - 7.0 % AO Workflow SS Erythrocyte distribution width (RBC) [Ratio] 18.4 % High 11.5 - 14.5 % AO Workflow SS GFR/1.73 sq M.predicted among blacks MDRD (S/P/Bld) [Vol rate/Area] 62 ml/min/1.73sqm Invalid Interpretation Code AO Chemistry S Comment on above: Interpretive Data: GFR Population mean for , Non- Americans Ages 20-29 = 116 mL/min/1.73 sq.m. Ages 30-39 = 107 mL/min/1.73 sq.m. Ages 40-49 = 99 mL/min/1.73 sq.m. Ages 50-59 = 93 mL/min/1.73 sq.m. Ages 60-69 = 85 mL/min/1.73 sq.m. Ages 70+ = 75 mL/min/1.73 sq.m. Chronic Kidney Disease: Less than 60 mL/min/1.73 square meters End Stage Renal Disease: Less than 15 mL/min/1.73 square meters GFR/1.73 sq M.predicted among non-blacks MDRD (S/P/Bld) [Vol rate/Area] 51 ml/min/1.73sqm Invalid Interpretation Code AO Chemistry S Comment on above: Interpretive Data: GFR Population mean for , Non- Americans Ages 20-29 = 116 mL/min/1.73 sq.m. Ages 30-39 = 107 mL/min/1.73 sq.m. Ages 40-49 = 99 mL/min/1.73 sq.m. Ages 50-59 = 93 mL/min/1.73 sq.m. Ages 60-69 = 85 mL/min/1.73 sq.m. Ages 70+ = 75 mL/min/1.73 sq.m. Chronic Kidney Disease: Less than 60 mL/min/1.73 square meters End Stage Renal Disease: Less than 15 mL/min/1.73 square meters Glucose [Mass/Vol] 105 mg/dL Normal 83 - 110 mg/dL AO ADM SS Hematocrit (Bld) [Volume fraction] 31.6 % Low 37.0 - 47.0 % AO Workflow SS Hemoglobin (Bld) [Mass/Vol] 9.8 G/dL Low 12.0 - 16.0 G/dL AO Workflow SS Lymphocyte, Absolute 1.7 103/mcL Normal 0.8 - 3 .9 10^3/mcL AO Workflow SS Lymphocytes/100 WBC (Bld) 51.4 % High 10.0 - 50.0 % AO Workflow SS MCH (RBC) [Entitic mass] 22.6 pg Low 27.0 - 31.2 pg AO Workflow SS MCHC 31.1 G/dL Low 33.0 - 37.0 G/dL AO Workflow SS MCV (RBC) [Entitic vol] 72.5 fL Low 80.0 - 94.0 fL AO Workflow SS Monocyte distribution width Auto (Bld) [Entitic vol] 15.05 1 Normal 0.00 - 20.00 AO Workflow SS Comment on above: Result Comment: For ED adult patients suspected of sepsis, MDW<=20.0 does not rule out sepsis or risk of sepsis Monocyte, Absolute 0.4 103/mcL Normal 0.2 - 1.0 10^3/mcL AO Workflow SS Monocytes/100 WBC (Bld) 11.4 % Normal 1.7 - 13.0 % AO Workflow SS Natriuretic peptide.B prohormone N-Terminal [Mass/Vol] 86 pg/mL Normal 0 - 125 pg/mL AO ADM SS Comment on above: Interpretive Data: N T-proBNP results of less than 300 pg/mL effectively rules out acute congestive heart failure with 99% negative predictive value. Neutrophil, Absolute 1.2 103/mcL Low 2.9 - 6 .2 10^3/mcL AO Workflow SS Neutrophils/100 WBC (Bld) 35.1 % Low 37.0 - 80.0 % AO Workflow SS Platelet Estimate Normal *NA* (02/11/24 6:48 AM) Invalid Interpretation Code AO Workflow SS Platelet mean volume (Bld) [Entitic vol] 6.5 fL Low 7.4 - 10.4 fL AO Workflow SS Platelets (Bld) [#/Vol] 310 103/mcL Normal 130 - 400 10^3/mcL AO Workflow SS Potassium [Moles/Vol] 3.7 mmol/L Normal 3.5 - 5.1 mmol/L AO ADM SS RBC (Bld) [#/Vol] 4.36 106/mcL Normal 4.20 - 5.4 0 10^6/mcL AO Workflow SS RBC morphology finding Nom (Bld) Normal *NA* (02/11/24 6:48 AM) Invalid Interpretation Code AO Workflow SS Sodium [Moles/Vol] 142 mmol/L Normal 136 - 145 mmol/L AO ADM SS Troponin I.cardiac DL <= 0.01 ng/mL [Mass/Vol] 6 ng/L Normal 0 - 51 ng/L AO ADM SS Comment on above: Interpretive Data: H igh Sensitive Troponin I Reference Ranges: Female: 0-51 ng/L Male: 0-76 ng/L Testing performed on Cardiac Guard using a homogeneous sandwich chemiluminescent immunoassay based on [employer] technology. Urea nitrogen [Mass/Vol] 11 mg/dL Normal 7 - 18 mg/dL AO ADM SS Urea nitrogen/Creatinine [Mass ratio] 10 ratio Normal 7 - 27 ratio AO ADM SS WBC (Bld) [#/Vol] 3.3 103/mcL Low 4.6 - 10.8 10^3/mcL AO Workflow SS PBNPon 02-11-2024 Natriuretic peptide B (Bld) [Mass/Vol] 86 pg/mL Normal 0-125 [facility] ([place]) Comment on above: Result Comment: NT-p roBNP results of less than 300 pg/mL effectively rules out acute congestive heart failure with 99% negative predictive value. Performed By: #### A MED, TROPHS, BMP, ADIFF, GFR, MORPH, PBNP, MDW, CBC #### [place] [id number] [facility] 02-11-2024 High Sensitivity Troponin I 6 ng/L Normal 0-51 [facility] ([place]) Comment on above: Result Comment: High Sensitive Troponin I Reference Ranges: Female: 0-51 ng/L Male: 0-76 ng/L Testing performed on Cardiac Guard using a homogeneous sandwich chemiluminescent immunoassay based on [employer] technology. Performed By: #### A MED, TROPHS, BMP, ADIFF, GFR, MORPH, PBNP, MDW, CBC #### [place] [id number] XR CHEST 1 VIEWon 02-11-2024 XR CHEST 1 VIEW ORIGINAL EXAMINATION: ONE XRAY VIEW OF THE CHEST 02/11/2024 7:10 am COMPARISON: Left rib x-rays on 02/03/2018 HISTORY: ORDERING SYSTEM PROVIDED HISTORY: Reason for Exam: SOB/cough/fever FINDINGS: The heart size is normal. Moderate size hiatal hernia is present in the retrocardiac region. There is no acute lung infiltrate or edema. No pneumothorax or pleural fluid is present. Healed left rib fractures are present. No acute skeletal abnormality is detected. IMPRESSION: 1. No acute cardiopulmonary process. 2. Moderate size hiatal hernia. Interpreted by: Omid Bethea MD Preliminary Report By: Omid Bethea MD Electronically signed By Omid Bethea MD Dictated Date: 02/11/2024 7:15:58 AM Prelim Date: 02/11/2024 7:17:20 AM Sign Date: 02/11/2024 7:17:20 AM Ordering Provider: NILTON Botello [facility] ([place]) [place] MAMMOGRAM SCREENING BILAT ERAL W/TOMOon 11-26-2023 MA MAMMOGRAM SCREENING BILATERAL W/AVINASH ORIGINAL FROM: [address] [address] PROCEDURE FOR: KARINA FERNANDO [address] [place] [id number] Home: PID#: [id number] Exam#: [id number] : 1950 Age: 72 TO: TU HECTOR DO [address] [place] [id number] Fax: NO FAX EXAMINATION: SCREENING DIGITAL BILATERAL MAMMOGRAM WITH TOMOSYNTHESIS, 11/25/2023 1:59 pm TECHNIQUE: Screening mammography of the bilateral breasts was performed with tomosynthesis. 2D standard and 3D tomosynthesis combination imaging performed through both breasts in the MLO and CC projection. Computer aided detection was utilized in the interpretation of this exam. COMPARISON: 09/01/2022, 10/24/2021 HISTORY: Breast cancer screening. FINDINGS: BREAST DENSITY: Scattered fibroglandular tissue There are benign appearing calcifications in both breasts. There is a benign density in the right breast. There are no significant masses or calcifications. IMPRESSION: No mammographic evidence of malignancy. Continued screening with annual mammograms is recommended. Misbah López risk calculations, generated with the history provided, report this patient's 10 year risk and lifetime risk for developing breast cancer at 2.3% and 3.4%, respectively. Based on this assessment tool, if the patient's calculated lifetime risk is below 20%, then the patient is considered at average risk for developing breast cancer. If the patient's calculated lifetime risk is at or above 20%, then the patient is considered high risk for developing breast cancer and may be a candidate for supplemental breast MRI screening in addition to annual mammographic screening per the [employer] [place] [employer]. BIRADS: MAMMOGRAM BI-RADS: 2: Benign finding RECALL: 1 year screening RECALL TYPE: mammo LETTER SENT: Normal BI-RADS 1 and 2 Interpreted by: Jaswinder Mei MD Preliminary Report By: Jaswinder Mei MD Electronically signed By Jaswinder Mei MD Dictated Date: 11/26/2023 10:58:30 AM Prelim Date: 11/26/2023 11:04:22 AM Sign Date: 11/26/2023 11:04:22 AM Ordering Provider: TU H[employer]OR [employer] Conductor: ANNAMARIA CHOI(R)(M)(CT) letter sent: Normal BI-RADS 1 and 2 Mammogram BI-RADS: 2 Benign Normal [facility] ([place]) LABORATORYOrdered By: Leah Bunch on 09-29-2023 Albumin DL <= 20 mg/L (U) [Mass/Vol] 190 mcg/dL Invalid Interpretation Code AO ADM SS Albumin/Creatinine DL <= 20 mg/L (U) [Mass ratio] 6 mcg/mg Normal 0 - 30 mcg/mg AO ADM SS Creatinine (U) [Mass/Vol] 33.5 mg/dL Normal 28.0 - 117.0 mg/dL AO ADM SS MALBRon 09-29-2023 U Creatinine 33.5 mg/dL Normal 28.0-117.0 [facility] ([place]) Comment on above: Performed By: #### M ALBR #### [place] [address] U Microalb 190 mcg/dL Normal [facility] ([place] Comment on above: Performed By: #### M ALBR #### [address] [address] U Ratio Alb/Cre 6 mcg/mg Normal 0-30 [facility] ([place] Comment on above: Performed By: #### M ALBR #### [address] [address] MALBRon 03-10-2023 U Creatinine 58.1 mg/dL Normal 28.0-117.0 [facility] ([place] Comment on above: Performed By: #### M ALBR #### [address] [address] U Microalb 389 mcg/dL Normal [facility] ([place] Comment on above: Performed By: #### M ALBR #### [address] [address] U Ratio Alb/Cre 7 mcg/mg Normal 0-30 [facility] ([place] Comment on above: Performed By: #### M ALBR #### [address] [address] LABORATORYOrdered By: Leah Bunch on 03-09-2023 Albumin DL <= 20 mg/L (U) [Mass/Vol] 389 mcg/dL Invalid Interpretation Code AO ADM SS Albumin/Creatinine DL <= 20 mg/L (U) [Mass ratio] 7 mcg/mg Invalid Interpretation Code 0 - 30 mcg/mg AO ADM SS Creatinine (U) [Mass/Vol] 58.1 mg/dL Invalid Interpretation Code 28.0 - 117.0 mg/dL AO ADM SS LABORATORYOrdered By: Say Woodard on 10-23-2021 Albumin BCP dye [Mass/Vol] 3.9 G/dL Invalid Interpretation Code 3.4 - 4.8 G/dL AO ADM SS Albumin/Globulin [Mass ratio] 1.2 {ratio} Invalid Interpretation Code 1.1 - 2.5 ratio AO ADM SS ALP [Catalytic activity/Vol] 56 U/L Invalid Interpretation Code 40 - 135 U/L AO ADM SS ALT With P-5'-P [Catalytic activity/Vol] 29 U/L Invalid Interpretation Code 14 - 59 U/L AO ADM SS AST With P-5'-P [Catalytic activity/Vol] 25 U/L Invalid Interpretation Code 10 - 40 U/L AO ADM SS Bilirubin [Mass/Vol] 0.4 mg/dL Invalid Interpretation Code 0.2 - 1.0 mg/dL AO ADM SS Calcium [Mass/Vol] 9.4 mg/dL Invalid Interpretation Code 8.4 - 10.2 mg/dL AO ADM SS Chloride [Moles/Vol] 101 mmol/L Invalid Interpretation Code 98 - 107 mmol/L AO ADM SS Cholesterol [Mass/Vol] 243 mg/dL Invalid Interpretation Code 0 - 200 mg/dL AO ADM SS Cholesterol in HDL [Mass/Vol] 63 mg/dL Invalid Interpretation Code 40 - 60 mg/dL AO ADM SS Cholesterol in LDL [Mass/Vol] 157 mg/dL Invalid Interpretation Code 0 - 130 mg/dL AO ADM SS CO2 [Moles/Vol] 33 mmol/L Invalid Interpretation Code 23 - 31 mmol/L AO ADM SS Creatinine [Mass/Vol] 0.96 mg/dL Invalid Interpretation Code 0.55 - 1.02 mg/dL AO ADM SS Electrolyte Balance 8.0 mEq/L Invalid Interpretation Code 4.0 - 15.0 mEq/L AO ADM SS Globulin 3.2 G/dL Invalid Interpretation Code AO ADM SS Glucose [Mass/Vol] 104 mg/dL Invalid Interpretation Code 80 - 115 mg/dL AO ADM SS Potassium [Moles/Vol] 3.5 mmol/L Invalid Interpretation Code 3.5 - 5.1 mmol/L AO ADM SS Protein [Mass/Vol] 7.1 G/dL Invalid Interpretation Code 6.4 - 8.2 G/dL AO ADM SS Sodium [Moles/Vol] 142 mmol/L Invalid Interpretation Code 136 - 145 mmol/L AO ADM SS Triglyceride [Mass/Vol] 116 mg/dL Invalid Interpretation Code 0 - 150 mg/dL AO ADM SS TSH Qn 0.69 m[IU]/L Invalid Interpretation Code 0.36 - 3.74 mcIU/mL AO ADM SS Urea nitrogen [Mass/Vol] 12 mg/dL Invalid Interpretation Code 7 - 18 mg/dL AO ADM SS Urea nitrogen/Creatinine [Mass ratio] 12 ratio Invalid Interpretation Code 7 - 27 ratio AO ADM SS LABORATORYOrdered By: SYSTEM SYSTEM on 04-07-2022 GFR 70 ml/min/1.73sqm Invalid Interpretation Code AO Chemistry S GFR Non- 58 ml/min/1.73sqm Invalid Interpretation Code AO Chemistry S XR Chest PA and Lateralon IMPRESSION: No acute radiographic abnormality. Steeping Press Tender: AMISHA Transcribe Date/Time: Jan 14 2021 10:21A Dictated by : JOSELYN VIDALES MD This examination was interpreted and the report reviewed and electronically signed by: JOSELYN VIDALES MD on Jan 14 2021 10:22AM [facility] DIVISION OF RADIOLOGY * * *Final Report* * * DATE OF EXAM: Jan 14 2021 10:18AM WOX 5291 - XR CHEST 2V FRONTAL/LAT / PROCEDURE REASON: multiple diagnoses * * * * Physician Interpretation * * * * EXAMINATION: CHEST RADIOGRAPH (2 VIEW FRONTAL & LATERAL) CLINICAL HISTORY: Cough Wheeze MQ: XC2_6 EXAM DATE/TIME: 01/14/2021 10:18 AM COMPARISON: 12/17/2020 RESULT: Lines, tubes, and devices: None. Lungs and pleura: No consolidation. No lung mass. No pleural effusion. No pneumothorax. Cardiomediastinal silhouette: Normal cardiomediastinal silhouette. Bones and soft tissues: Hiatal hernia. Healed left rib fractures. DIVISION OF RADIOLOGY Provider, [facility] - 01/14/2021 * * *Final Report* * * DATE OF EXAM: Jan 14 2021 10:18AM WOX 5291 - XR CHEST 2V FRONTAL/LAT / PROCEDURE REASON: multiple diagnoses * * * * Physician Interpretation * * * * EXAMINATION: CHEST RADIOGRAPH (2 VIEW FRONTAL & LATERAL) CLINICAL HISTORY: Cough Wheeze MQ: XC2_6 EXAM DATE/TIME: 01/14/2021 10:18 AM COMPARISON: 12/17/2020 RESULT: Lines, tubes, and devices: None. Lungs and pleura: No consolidation. No lung mass. No pleural effusion. No pneumothorax. Cardiomediastinal silhouette: Normal cardiomediastinal silhouette. Bones and soft tissues: Hiatal hernia. Healed left rib fractures. IMPRESSION IMPRESSION: No acute radiographic abnormality. Steeping Press Tender: AMISHA Transcribe Date/Time: Jan 14 2021 10:21A Dictated by : JOSELYN VIDALES MD This examination was interpreted and the report reviewed and electronically signed by: JOSELYN VIDALES MD on Jan 14 2021 10:22AM [facility] Radiology Study observation (narrative) Sudeep rodney [facility] XR Chest PA and LateralOrder ed By: Ccf Provider on 01-14-2021 [facility] XR Chest PA and Lateralon IMPRESSION: 1. No radiographic evidence of acute cardiopulmonary process. 2. Moderately large hiatal hernia. Steeping Press Tender: PSCB Transcribe Date/Time: Dec 17 2020 2:23P Dictated by : LALI JAIN MD This examination was interpreted and the report reviewed and electronically signed by: LALI JAIN MD on Dec 17 2020 2:24PM [facility] DIVISION OF RADIOLOGY * * *Final Report* * * DATE OF EXAM: Dec 17 2020 2:22PM WOX 5291 - XR CHEST 2V FRONTAL/LAT / PROCEDURE REASON: Cough * * * * Physician Interpretation * * * * EXAMINATION: CHEST RADIOGRAPH (2 VIEW FRONTAL & LATERAL) CLINICAL HISTORY: Cough MQ: XC2_6 EXAM DATE/TIME: 12/17/2020 2:22 PM COMPARISON: No relevant prior studies available. RESULT: Lines, tubes, and devices: None. Lungs and pleura: No consolidation. No lung mass. No pleural effusion. No pneumothorax. Cardiomediastinal silhouette: Moderately large hiatal hernia. Otherwise, normal cardiomediastinal silhouette. Bones and soft tissues: Degenerative changes in the spine. Remote healed left rib fracture deformities. DIVISION OF RADIOLOGY Provider, [facility] - 12/17/2020 * * *Final Report* * * DATE OF EXAM: Dec 17 2020 2:22PM WOX 5291 - XR CHEST 2V FRONTAL/LAT / PROCEDURE REASON: Cough * * * * Physician Interpretation * * * * EXAMINATION: CHEST RADIOGRAPH (2 VIEW FRONTAL & LATERAL) CLINICAL HISTORY: Cough MQ: XC2_6 EXAM DATE/TIME: 12/17/2020 2:22 PM COMPARISON: No relevant prior studies available. RESULT: Lines, tubes, and devices: None. Lungs and pleura: No consolidation. No lung mass. No pleural effusion. No pneumothorax. Cardiomediastinal silhouette: Moderately large hiatal hernia. Otherwise, normal cardiomediastinal silhouette. Bones and soft tissues: Degenerative changes in the spine. Remote healed left rib fracture deformities. IMPRESSION IMPRESSION: 1. No radiographic evidence of acute cardiopulmonary process. 2. Moderately large hiatal hernia. Steeping Press Tender: AMISHA Transcribe Date/Time: Dec 17 2020 2:23P Dictated by : LALI JAIN MD This examination was interpreted and the report reviewed and electronically signed by: LALI JAIN MD on Dec 17 2020 2:24PM EST [facility] Radiology Study observation (narrative) Sudeep rodney [facility] XR Chest PA and LateralOrder ed By: Ccf Provider on 12-17-2020 [facility] Vital Signs Date Time Vital Sign Value Performing Clinician Facility 01-23-2025 10:05-0400 Body height 160.[address] uT Hector DO Work Phone: [facility] 01-23-2025 10:05-0400 Body mass index (BMI) [Ratio] 27.8 kg/m2 Dr. Tu Hector DO Work Phone: [facility] 01-23-2025 10:05-0400 Body temperature 97.1 [degF] Dr. Tu Hector DO Work Phone: [facility] 01-23-2025 10:05-0400 Body weight 71.[address] Tu Hector DO Work Phone: [facility] 01-23-2025 10:05-0400 Diastolic blood pressure 73 mm[Hg] Dr. Tu Hector DO Work Phone: [facility] 01-23-2025 10:05-0400 Heart rate 91 /min Dr. Tu Hector DO Work Phone: [facility] 01-23-2025 10:05-0400 Respiratory rate 15 /min Dr. Tu Hector DO Work Phone: [facility] 01-23-2025 10:05-0400 SaO2% (BldA) [Mass fraction] 93 % Dr. Tu Hector DO Work Phone: [facility] 01-23-2025 10:05-0400 Systolic blood pressure 114 mm[Hg] Dr. Tu Hector DO Work Phone: [facility] 01-04-2025 14:42-0400 Body temperature 96.7 [degF] Dr. Tu Hector DO Work Phone: [facility] 01-04-2025 14:42-0400 Diastolic blood pressure 71 mm[Hg] Dr. Tu Hector DO Work Phone: [facility] 01-04-2025 14:42-0400 Heart rate 94 /min Dr. Tu Hector DO Work Phone: [facility] 01-04-2025 14:42-0400 Respiratory rate 16 /min Dr. Tu Hector DO Work Phone: [facility] 01-04-2025 14:42-0400 Systolic blood pressure 119 mm[Hg] Dr. Tu Hector DO Work Phone: [facility] 01-04-2025 13:01-0400 Inhaled oxygen flow rate 3 L/min Dr. Tu Hector DO Work Phone: [facility] 01-04-2025 13:01-0400 SaO2% (BldA) [Mass fraction] 99 % Dr. Tu Hector DO Work Phone: [facility] 01-02-2025 09:55-0400 Body height 160.[address] Tu Hector DO Work Phone: [facility] 01-02-2025 09:55-0400 Body mass index (BMI) [Ratio] 27.4 kg/m2 Dr. Tu Hector DO Work Phone: [facility] 01-02-2025 09:55-0400 Body temperature 97.6 [degF] Dr. Tu Hector DO Work Phone: [facility] 01-02-2025 09:55-0400 Body weight 70.[address] Tu Hector DO Work Phone: [facility] 01-02-2025 09:55-0400 Diastolic blood pressure 77 mm[Hg] Dr. Tu Hector DO Work Phone: [facility] 01-02-2025 09:55-0400 Heart rate 102 /min Dr. Tu Hector DO Work Phone: [facility] 01-02-2025 09:55-0400 Inhaled oxygen flow rate 3 L/min Dr. Tu Hector DO Work Phone: [facility] 01-02-2025 09:55-0400 Respiratory rate 14 /min Dr. Tu Hector DO Work Phone: [facility] 01-02-2025 09:55-0400 SaO2% (BldA) [Mass fraction] 92 % Dr. Tu Hector DO Work Phone: [facility] 01-02-2025 09:55-0400 Systolic blood pressure 114 mm[Hg] Dr. Tu Hector DO Work Phone: [facility] 12-14-2024 15:04-0400 Body temperature 97.1 [degF] Dr. Tu Hector DO Work Phone: [facility] 12-14-2024 15:04-0400 Diastolic blood pressure 79 mm[Hg] Dr. Tu Hector DO Work Phone: [facility] 12-14-2024 15:04-0400 Heart rate 82 /min Dr. Tu Hector DO Work Phone: [facility] 12-14-2024 15:04-0400 Respiratory rate 16 /min Dr. Tu Hector DO Work Phone: [facility] 12-14-2024 15:04-0400 SaO2% (BldA) [Mass fraction] 100 % Dr. Tu Hector DO Work Phone: [facility] 12-14-2024 15:04-0400 Systolic blood pressure 121 mm[Hg] Dr. Tu Hector DO Work Phone: [facility] 12-14-2024 13:06-0400 Inhaled oxygen flow rate 3 L/min Dr. Tu Hector DO Work Phone: [facility] 12-12-2024 09:06-0400 Body height 160.[address] Tu Hector DO Work Phone: [facility] 12-12-2024 09:06-0400 Body mass index (BMI) [Ratio] 27.8 kg/m2 Dr. Tu Hector DO Work Phone: [facility] 12-12-2024 09:06-0400 Body temperature 97.9 [degF] Dr. Tu Hector DO Work Phone: [facility] 12-12-2024 09:06-0400 Body weight 71.[address] Tu Hector DO Work Phone: [facility] 12-12-2024 09:06-0400 Diastolic blood pressure 70 mm[Hg] Dr. Tu Hector DO Work Phone: [facility] 12-12-2024 09:06-0400 Heart rate 82 /min Dr. Tu Hector DO Work Phone: [facility] 12-12-2024 09:06-0400 Inhaled oxygen flow rate 3 L/min Dr. Tu Hector DO Work Phone: [facility] 12-12-2024 09:06-0400 Respiratory rate 15 /min Dr. Tu Hector DO Work Phone: [facility] 12-12-2024 09:06-0400 SaO2% (BldA) [Mass fraction] 94 % Dr. Tu Hector DO Work Phone: [facility] 12-12-2024 09:06-0400 Systolic blood pressure 122 mm[Hg] Dr. Tu Hector DO Work Phone: [facility] 11-24-2024 16:15-0400 Diastolic Blood Pressure Non-Invasive 68 mm[Hg] ENID FORMAN MD [facility] 11-24-2024 16:15-0400 Heart rate 86 /min ENID FORMAN MD [facility] 11-24-2024 16:15-0400 Reason For Taking VItal Signs ENID FORMAN MD [address] [place] [address] 11-24-2024 16:15-0400 Respiratory rate 20 /min ENID FORMAN MD [address] [place] [address] 11-24-2024 16:15-0400 Systolic Blood Pressure Non-Invasive 168 mm[Hg] ENID FORMAN MD [facility] 11-24-2024 13:54-0400 Body temperature 98.42 [degF] ENID FORMAN MD [facility] 11-24-2024 13:54-0400 Body weight 73.4 kg ENID FORMAN MD [facility] 11-24-2024 13:54-0400 Diastolic Blood Pressure Non-Invasive 62 mm[Hg] ENID FORMAN MD [address] [place] [address] 11-24-2024 13:54-0400 Heart rate 89 /min ENID FORMAN MD [facility] 11-24-2024 13:54-0400 Respiratory rate 20 /min ENID FORMAN MD [facility] 11-24-2024 13:54-0400 Systolic Blood Pressure Non-Invasive 174 mm[Hg] ENID FORMAN MD [facility] 11-22-2024 13:03-0400 Body temperature 96.6 [degF] Dr. Tu Hector DO Work Phone: [facility] 11-22-2024 13:03-0400 Diastolic blood pressure 54 mm[Hg] Dr. Tu Hector DO Work Phone: [facility] 11-22-2024 13:03-0400 Heart rate 69 /min Dr. Tu Hector DO Work Phone: [facility] 11-22-2024 13:03-0400 Inhaled oxygen flow rate 3 L/min Dr. Tu Hector DO Work Phone: [facility] 11-22-2024 13:03-0400 Respiratory rate 16 /min Dr. Tu Hector DO Work Phone: [facility] 11-22-2024 13:03-0400 SaO2% (BldA) [Mass fraction] 96 % Dr. Tu Hector DO Work Phone: [facility] 11-22-2024 13:03-0400 Systolic blood pressure 110 mm[Hg] Dr. Tu Hector DO Work Phone: [facility] 11-21-2024 08:46-0400 Body mass index (BMI) [Ratio] 28.3 kg/m2 Dr. Tu Hector DO Work Phone: [facility] 11-21-2024 08:46-0400 Body temperature 97.9 [degF] Dr. Tu Hector DO Work Phone: [facility] 11-21-2024 08:46-0400 Body weight 72.[address] Tu Hector DO Work Phone: [facility] 11-21-2024 08:46-0400 Diastolic blood pressure 75 mm[Hg] Dr. Tu Hector DO Work Phone: [facility] 11-21-2024 08:46-0400 Heart rate 78 /min Dr. Tu Hector DO Work Phone: [facility] 11-21-2024 08:46-0400 Inhaled oxygen flow rate 3 L/min Dr. Tu Hector DO Work Phone: [facility] 11-21-2024 08:46-0400 Respiratory rate 14 /min Dr. Tu Hector DO Work Phone: [facility] 11-21-2024 08:46-0400 SaO2% (BldA) [Mass fraction] 91 % Dr. Tu Hector DO Work Phone: [facility] 11-21-2024 08:46-0400 Systolic blood pressure 118 mm[Hg] Dr. Tu Hector DO Work Phone: [facility] 11-17-2024 11:30-0400 Body mass index (BMI) [Ratio] 27.6 kg/m2 Dr. Tu Hector DO Work Phone: [facility] 11-17-2024 11:30-0400 Body weight 70.[address] Tu Hector DO Work Phone: [facility] 11-17-2024 11:30-0400 Diastolic blood pressure 63 mm[Hg] Dr. Tu Hector DO Work Phone: [facility] 11-17-2024 11:30-0400 Heart rate 82 /min Dr. Tu Hector DO Work Phone: [facility] 11-17-2024 11:30-0400 Inhaled oxygen flow rate 3 L/min Dr. Tu Hector DO Work Phone: [facility] 11-17-2024 11:30-0400 Respiratory rate 18 /min Dr. Tu Hector DO Work Phone: [facility] 11-17-2024 11:30-0400 SaO2% (BldA) [Mass fraction] 91 % Dr. Tu Hector DO Work Phone: [facility] 11-17-2024 11:30-0400 Systolic blood pressure 99 mm[Hg] Dr. Tu Hector DO Work Phone: [facility] 11-16-2024 14:40-0400 Body temperature 97.1 [degF] Dr. Tu Hector DO Work Phone: [facility] 11-16-2024 14:40-0400 Diastolic blood pressure 72 mm[Hg] Dr. Tu Hector DO Work Phone: [facility] 11-16-2024 14:40-0400 Heart rate 84 /min Dr. Tu Hector DO Work Phone: [facility] 11-16-2024 14:40-0400 Respiratory rate 16 /min Dr. Tu Hector DO Work Phone: [facility] 11-16-2024 14:40-0400 SaO2% (BldA) [Mass fraction] 96 % Dr. Tu Hector DO Work Phone: [facility] 11-16-2024 14:40-0400 Systolic blood pressure 100 mm[Hg] Dr. Tu Hector DO Work Phone: [facility] 11-16-2024 14:35-0400 Inhaled oxygen flow rate 3 L/min Dr. Tu Hector DO Work Phone: [facility] 11-16-2024 12:05-0400 Body mass index (BMI) [Ratio] 27.7 kg/m2 Dr. Tu Hector DO Work Phone: [facility] 11-16-2024 12:05-0400 Body weight [address] Tu Hector DO Work Phone: [facility] 11-09-2024 09:09-0400 Body mass index (BMI) [Ratio] 28.3 kg/m2 Dr. Tu Hector DO Work Phone: [facility] 11-09-2024 09:09-0400 Body temperature 98.1 [degF] Dr. Tu Hector DO Work Phone: [facility] 11-09-2024 09:09-0400 Body weight 72.[address] Tu Hector DO Work Phone: [facility] 11-09-2024 09:09-0400 Diastolic blood pressure 74 mm[Hg] Dr. Tu Hector DO Work Phone: [facility] 11-09-2024 09:09-0400 Heart rate 81 /min Dr. Tu Hector DO Work Phone: [facility] 11-09-2024 09:09-0400 Respiratory rate 18 /min Dr. Tu Hector DO Work Phone: [facility] 11-09-2024 09:09-0400 SaO2% (BldA) [Mass fraction] 97 % Dr. Tu Hector DO Work Phone: [facility] 11-09-2024 09:09-0400 Systolic blood pressure 116 mm[Hg] Dr. Tu Hector DO Work Phone: [facility] 11-02-2024 09:51-0400 Body mass index (BMI) [Ratio] 30.5 kg/m2 Dr. Tu Hector DO Work Phone: [facility] 10-31-2024 08:18-0400 Body mass index (BMI) [Ratio] 29.4 kg/m2 Dr. Tu Hector DO Work Phone: [facility] 10-31-2024 08:18-0400 Body temperature 98.3 [degF] Dr. Tu Hector DO Work Phone: [facility] 10-31-2024 08:18-0400 Body weight 75.[address] Tu Hector DO Work Phone: [facility] 10-31-2024 08:18-0400 Diastolic blood pressure 81 mm[Hg] Dr. Tu Hector DO Work Phone: [facility] 10-31-2024 08:18-0400 Heart rate 96 /min Dr. Tu Hector DO Work Phone: [facility] 10-31-2024 08:18-0400 Respiratory rate 16 /min Dr. Tu Hector DO Work Phone: [facility] 10-31-2024 08:18-0400 SaO2% (BldA) [Mass fraction] 98 % Dr. Tu Hector DO Work Phone: [facility] 10-31-2024 08:18-0400 Systolic blood pressure 125 mm[Hg] Dr. Tu Hector DO Work Phone: [facility] 10-27-2024 12:45-0400 Body mass index (BMI) [Ratio] 18.9 kg/m2 Dr. Tu Hector DO Work Phone: [facility] 10-27-2024 12:45-0400 Body temperature 97.6 [degF] Dr. Tu Hector DO Work Phone: [facility] 10-27-2024 12:45-0400 Body weight 48.[address] Tu Hector DO Work Phone: [facility] 10-27-2024 12:45-0400 Diastolic blood pressure 70 mm[Hg] Dr. Tu Hector DO Work Phone: [facility] 10-27-2024 12:45-0400 Heart rate 100 /min Dr. Tu Hector DO Work Phone: [facility] 10-27-2024 12:45-0400 Inhaled oxygen flow rate 2.5 L/min Dr. Tu Hector DO Work Phone: [facility] 10-27-2024 12:45-0400 Respiratory rate 18 /min Dr. Tu Hector DO Work Phone: [facility] 10-27-2024 12:45-0400 SaO2% (BldA) [Mass fraction] 96 % Dr. Tu Hector DO Work Phone: [facility] 10-27-2024 12:45-0400 Systolic blood pressure 107 mm[Hg] Dr. Tu Hector DO Work Phone: [facility] 10-26-2024 16:17-0400 Body mass index (BMI) [Ratio] 29.8 kg/m2 Dr. Tu Hector DO Work Phone: [facility] 10-26-2024 16:17-0400 Body temperature 98.5 [degF] Dr. Tu Hector DO Work Phone: [facility] 10-26-2024 16:17-0400 Body weight 76.[address] Tu Hector DO Work Phone: [facility] 10-26-2024 16:17-0400 Diastolic blood pressure 76 mm[Hg] Dr. Tu Hector DO Work Phone: [facility] 10-26-2024 16:17-0400 Heart rate 115 /min Dr. Tu Hector DO Work Phone: [facility] 10-26-2024 16:17-0400 Respiratory rate 18 /min Dr. Tu Hector DO Work Phone: [facility] 10-26-2024 16:17-0400 SaO2% (BldA) [Mass fraction] 98 % Dr. Tu Hector DO Work Phone: [facility] 10-26-2024 16:17-0400 Systolic blood pressure 116 mm[Hg] Dr. Tu Hector DO Work Phone: [facility] 10-26-2024 10:37-0400 Body height 160 cm Joselyn Tucker MD Work Phone: [facility] 10-26-2024 10:37-0400 Body mass index (BMI) [Ratio] 29.58 kg/m2 Joselyn Tucker MD Work Phone: [facility] 10-26-2024 10:37-0400 Body weight 75.75 kg Joselyn Tucker MD Work Phone: [facility] 10-26-2024 10:37-0400 Diastolic blood pressure 80 mm[Hg] Joselyn Tucker MD Work Phone: [facility] 10-26-2024 10:37-0400 Heart rate 98 /min Joselyn Tucker MD Work Phone: [facility] 10-26-2024 10:37-0400 Systolic blood pressure 120 mm[Hg] Joselyn Tucker MD Work Phone: [facility] 10-25-2024 15:11-0400 Body mass index (BMI) [Ratio] 29.7 kg/m2 Dr. Tu Hector DO Work Phone: [facility] 10-25-2024 15:11-0400 Body temperature 98.5 [degF] Dr. Tu Hector DO Work Phone: [facility] 10-25-2024 15:11-0400 Body weight [address] Tu Hector DO Work Phone: [facility] 10-25-2024 15:11-0400 Diastolic blood pressure 74 mm[Hg] Dr. Tu Hector DO Work Phone: [facility] 10-25-2024 15:11-0400 Heart rate 89 /min Dr. Tu Hector DO Work Phone: [facility] 10-25-2024 15:11-0400 Inhaled oxygen flow rate 2.5 L/min Dr. Tu Hector DO Work Phone: [facility] 10-25-2024 15:11-0400 Respiratory rate 18 /min Dr. Tu Hector DO Work Phone: [facility] 10-25-2024 15:11-0400 SaO2% (BldA) [Mass fraction] 97 % Dr. Tu Hector DO Work Phone: [facility] 10-25-2024 15:11-0400 Systolic blood pressure 114 mm[Hg] Dr. Tu Hector DO Work Phone: [facility] 10-21-2024 16:39-0400 Body temperature 97.9 [degF] Dr. Tu Hector DO Work Phone: [facility] 10-21-2024 16:39-0400 Diastolic blood pressure 74 mm[Hg] Dr. Tu Hector DO Work Phone: [facility] 10-21-2024 16:39-0400 Heart rate 80 /min Dr. Tu Hector DO Work Phone: [facility] 10-21-2024 16:39-0400 Respiratory rate 16 /min Dr. Tu Hector DO Work Phone: [facility] 10-21-2024 16:39-0400 SaO2% (BldA) [Mass fraction] 98 % Dr. Tu Hector DO Work Phone: [facility] 10-21-2024 16:39-0400 Systolic blood pressure 111 mm[Hg] Dr. Tu Hector DO Work Phone: [facility] 10-21-2024 15:43-0400 Inhaled oxygen flow rate 2 L/min Dr. Tu Hector DO Work Phone: [facility] 10-21-2024 15:05-0400 Body height 160.[address] Tu Hector DO Work Phone: [facility] 10-21-2024 15:05-0400 Body mass index (BMI) [Ratio] 29.2 kg/m2 Dr. Tu Hector DO Work Phone: [facility] 10-21-2024 15:05-0400 Body weight 74.[address] Tu Hector DO Work Phone: [facility] 10-17-2024 11:07-0400 Body height 160 cm Rachel Johnson DO Work Phone: [facility] 10-17-2024 11:07-0400 Body mass index (BMI) [Ratio] 29.23 kg/m2 Rachel Monk-Anh DO Work Phone: [facility] 10-17-2024 11:07-0400 Body temperature 97.5 [degF] Rachel Monk-Anh DO Work Phone: [facility] 10-17-2024 11:07-0400 Body weight 74.84 kg Rachel MillerAnh DO Work Phone: [facility] 10-17-2024 11:07-0400 Diastolic blood pressure 64 mm[Hg] Rachel Monk-Anh DO Work Phone: [facility] 10-17-2024 11:07-0400 Heart rate 81 /min Rachel Monk-Anh DO Work Phone: [facility] 10-17-2024 11:07-0400 Respiratory rate 18 /min Rachel MillerAnh DO Work Phone: [facility] 10-17-2024 11:07-0400 SaO2% (BldA) [Mass fraction] 94 % Rachel MillerAnh DO Work Phone: [facility] Comment on above: 10-17-2024 11:07-0400 Systolic blood pressure 122 mm[Hg] Rachel Monk-Anh DO Work Phone: [facility] 10-09-2024 16:30-0400 Diastolic blood pressure 72 mm[Hg] Cain Mejia MD Work Phone: [facility] 10-09-2024 16:30-0400 Heart rate 90 /min Cain Mejia MD Work Phone: [facility] 10-09-2024 16:30-0400 Respiratory rate 22 /min Cain Mejia MD Work Phone: [facility] 10-09-2024 16:30-0400 SaO2% (BldA) [Mass fraction] 92 % Cain Mejia MD Work Phone: [facility] 10-09-2024 16:30-0400 Systolic blood pressure 112 mm[Hg] Cain Mejia MD Work Phone: [facility] 10-09-2024 15:45-0400 Body temperature 97.59 [degF] Cain Mejia MD Work Phone: [facility] 10-09-2024 13:08-0400 Body height 160 cm Cain Mejia MD Work Phone: [facility] 10-09-2024 13:08-0400 Body mass index (BMI) [Ratio] 28.87 kg/m2 Cain Mejia MD Work Phone: [facility] 10-09-2024 13:08-0400 Body weight 73.94 kg Cain Mejia MD Work Phone: [facility] 10-06-2024 13:06-0400 Body temperature 98.8 [degF] Guanakito Myoa MD Work Phone: [facility] 10-06-2024 13:06-0400 Diastolic blood pressure 75 mm[Hg] Guanakito Moya MD Work Phone: [facility] 10-06-2024 13:06-0400 Heart rate 122 /min Guanakito Moya MD Work Phone: [facility] 10-06-2024 13:06-0400 Respiratory rate 18 /min Guanakito Moya MD Work Phone: [facility] 10-06-2024 13:06-0400 SaO2% (BldA) [Mass fraction] 93 % Guanakito Moya MD Work Phone: [facility] 10-06-2024 13:06-0400 Systolic blood pressure 110 mm[Hg] Guanakito Moya MD Work Phone: [facility] 10-05-2024 20:12-0400 Body mass index (BMI) [Ratio] 27.44 kg/m2 Guanakito Moya MD Work Phone: [facility] 10-05-2024 20:12-0400 Body weight 70.26 kg Guanakito Moya MD Work Phone: [facility] 10-05-2024 18:22-0400 Body temperature 98.2 [degF] Dr. Tu Hector DO Work Phone: [facility] 10-05-2024 18:22-0400 Diastolic blood pressure 82 mm[Hg] Dr. Tu Hector DO Work Phone: [facility] 10-05-2024 18:22-0400 Heart rate 99 /min Dr. Tu Hector DO Work Phone: [facility] 10-05-2024 18:22-0400 Respiratory rate 20 /min Dr. Tu Hector DO Work Phone: [facility] 10-05-2024 18:22-0400 SaO2% (BldA) [Mass fraction] 93 % Dr. Tu Hector DO Work Phone: [facility] 10-05-2024 18:22-0400 Systolic blood pressure 116 mm[Hg] Dr. Tu Hector DO Work Phone: [facility] 10-05-2024 13:52-0400 Body height 160.[address] Tu Hector DO Work Phone: [facility] 10-05-2024 13:52-0400 Body mass index (BMI) [Ratio] 28.8 kg/m2 Dr. Tu Hector DO Work Phone: [facility] 10-05-2024 13:52-0400 Body weight 73.[address] Tu Hector DO Work Phone: [facility] 10-03-2024 13:56-0400 Body height 160 cm Wilfrido Luis DO Work Phone: [facility] 10-03-2024 13:56-0400 Body mass index (BMI) [Ratio] 28.87 kg/m2 Wilfrido Luis DO Work Phone: [facility] 10-03-2024 13:56-0400 Body weight 73.94 kg Wilfrido Ramirezo DO Work Phone: [facility] 10-03-2024 13:56-0400 Diastolic blood pressure 62 mm[Hg] Wilfrido Bhaktaungo DO Work Phone: [facility] 10-03-2024 13:56-0400 Heart rate 76 /min Wilfrido Ramirezo DO Work Phone: [facility] 10-03-2024 13:56-0400 Systolic blood pressure 108 mm[Hg] Wilfrido Ramirezo DO Work Phone: [facility] 10-03-2024 12:13-0400 Body height 160 cm Rachel Lacho-Anh DO Work Phone: [facility] 10-03-2024 12:13-0400 Body mass index (BMI) [Ratio] 28.87 kg/m2 Rachel Lacho-Anh DO Work Phone: [facility] 10-03-2024 12:13-0400 Body weight 73.94 kg Rachel Lacho-Anh DO Work Phone: [facility] 10-03-2024 12:13-0400 Diastolic blood pressure 86 mm[Hg] Rachel Lacho-Anh DO Work Phone: [facility] 10-03-2024 12:13-0400 Heart rate 98 /min Rachel Lacho-Anh DO Work Phone: [facility] 10-03-2024 12:13-0400 Respiratory rate 18 /min Rachel Lacho-Anh DO Work Phone: [facility] 10-03-2024 12:13-0400 SaO2% (BldA) [Mass fraction] 93 % Rachel Lacho-Anh DO Work Phone: [facility] Comment on above: 10-03-2024 12:13-0400 Systolic blood pressure 127 mm[Hg] Rachel Lacho-Anh DO Work Phone: [facility] 10-03-2024 11:10-0400 Diastolic blood pressure 89 mm[Hg] Silvio Fortune MD Work Phone: [facility] 10-03-2024 11:10-0400 Systolic blood pressure 141 mm[Hg] Silvio Fortune MD Work Phone: [facility] 10-03-2024 11:07-0400 Body mass index (BMI) [Ratio] 28.87 kg/m2 Silvio Fortune MD Work Phone: [facility] 10-03-2024 11:07-0400 Body weight 73.94 kg Silvio Fortune MD Work Phone: [facility] 10-03-2024 11:07-0400 Heart rate 95 /min Silvio Fortune MD Work Phone: [facility] 09-28-2024 10:00-0400 Heart rate 121 /min Dr. Tu Hector DO Work Phone: [facility] 09-28-2024 10:00-0400 SaO2% (BldA) [Mass fraction] 90 % Dr. Tu Hector DO Work Phone: [facility] 09-28-2024 09:50-0400 Body temperature 97.4 [degF] Dr. Tu Hector DO Work Phone: [facility] 09-28-2024 09:50-0400 Body weight 74.[address] Tu Hector DO Work Phone: [facility] 09-28-2024 09:50-0400 Diastolic blood pressure 84 mm[Hg] Dr. Tu Hector DO Work Phone: [facility] 09-28-2024 09:50-0400 Respiratory rate 20 /min Dr. Tu Hector DO Work Phone: [facility] 09-28-2024 09:50-0400 Systolic blood pressure 144 mm[Hg] Dr. Tu Hector DO Work Phone: [facility] 09-22-2024 08:07-0500 Body mass index (BMI) [Ratio] 28.8 kg/m2 Dr. Tu Hector DO Work Phone: [facility] 09-22-2024 08:07-0500 Body temperature 97.4 [degF] Dr. Tu Hector DO Work Phone: [facility] 09-22-2024 08:07-0500 Body weight 73.[address] Tu Hector DO Work Phone: [facility] 09-22-2024 08:07-0500 Diastolic blood pressure 72 mm[Hg] Dr. Tu Hector DO Work Phone: [facility] 09-22-2024 08:07-0500 Heart rate 100 /min Dr. Tu Hector DO Work Phone: [facility] 09-22-2024 08:07-0500 Respiratory rate 20 /min Dr. Tu Hector DO Work Phone: [facility] 09-22-2024 08:07-0500 SaO2% (BldA) [Mass fraction] 94 % Dr. Tu Hector DO Work Phone: [facility] 09-22-2024 08:07-0500 Systolic blood pressure 106 mm[Hg] Dr. Tu Hector DO Work Phone: [facility] 09-18-2024 13:18-0500 Body height 160.[address] Tu Hector DO Work Phone: [facility] 09-18-2024 13:18-0500 Body mass index (BMI) [Ratio] 29.8 kg/m2 Dr. Tu Hector DO Work Phone: [facility] 09-18-2024 13:18-0500 Body temperature 98.2 [degF] Dr. Tu Hector DO Work Phone: [facility] 09-18-2024 13:18-0500 Body weight 76.[address] Tu Hector DO Work Phone: [facility] 09-18-2024 13:18-0500 Diastolic blood pressure 85 mm[Hg] Dr. Tu Hector DO Work Phone: [facility] 09-18-2024 13:18-0500 Heart rate 86 /min Dr. Tu Hector DO Work Phone: [facility] 09-18-2024 13:18-0500 Respiratory rate 16 /min Dr. Tu Hector DO Work Phone: [facility] 09-18-2024 13:18-0500 SaO2% (BldA) [Mass fraction] 94 % Dr. Tu Hector DO Work Phone: [facility] 09-18-2024 13:18-0500 Systolic blood pressure 130 mm[Hg] Dr. Tu Hector DO Work Phone: [facility] 09-14-2024 00:30-0500 Body temperature 98.3 [degF] Dr. Tu Hector DO Work Phone: [facility] 09-14-2024 00:30-0500 Diastolic blood pressure 87 mm[Hg] Dr. Tu Hector DO Work Phone: [facility] 09-14-2024 00:30-0500 Heart rate 87 /min Dr. Tu Hector DO Work Phone: [facility] 09-14-2024 00:30-0500 Respiratory rate 19 /min Dr. Tu Hector DO Work Phone: [facility] 09-14-2024 00:30-0500 SaO2% (BldA) [Mass fraction] 92 % Dr. Tu Hector DO Work Phone: [facility] 09-14-2024 00:30-0500 Systolic blood pressure 137 mm[Hg] Dr. Tu Hector DO Work Phone: [facility] 09-13-2024 18:52-0500 Body mass index (BMI) [Ratio] 30.2 kg/m2 Dr. Tu Hector DO Work Phone: [facility] 09-13-2024 18:52-0500 Body weight 77.[address] Tu Hector DO Work Phone: [facility] 09-02-2024 13:16-0500 Body temperature 98.91 [degF] Dung Littlejohn MD Work Phone: [facility] 09-02-2024 13:16-0500 Body weight 77.7 kg Dung Littlejohn MD Work Phone: [facility] 09-02-2024 13:16-0500 Diastolic blood pressure 82 mm[Hg] Dung Littlejohn MD Work Phone: [facility] 09-02-2024 13:16-0500 Heart rate 90 /min Dung Littlejohn MD Work Phone: [facility] 09-02-2024 13:16-0500 Respiratory rate 18 /min Dung Littlejohn MD Work Phone: [facility] 09-02-2024 13:16-0500 SaO2% (BldA) [Mass fraction] 94 % Dung Littlejohn MD Work Phone: [facility] 09-02-2024 13:16-0500 Systolic blood pressure 134 mm[Hg] Dung Littlejohn MD Work Phone: [facility] 06-20-2024 11:00-0500 Body temperature 98.9 [degF] Dr. Tu Hector DO Work Phone: [facility] 06-20-2024 11:00-0500 Diastolic blood pressure 78 mm[Hg] Dr. Tu Hector DO Work Phone: [facility] 06-20-2024 11:00-0500 Heart rate 82 /min Dr. Tu Hector DO Work Phone: [facility] 06-20-2024 11:00-0500 Respiratory rate 16 /min Dr. Tu Hector DO Work Phone: [facility] 06-20-2024 11:00-0500 SaO2% (BldA) [Mass fraction] 99 % Dr. Tu Hector DO Work Phone: [facility] 06-20-2024 11:00-0500 Systolic blood pressure 115 mm[Hg] Dr. Tu Hector DO Work Phone: [facility] 06-20-2024 09:31-0500 Inhaled oxygen flow rate 1 L/min Dr. Tu Hector DO Work Phone: [facility] 06-20-2024 08:56-0500 Body mass index (BMI) [Ratio] 31.4 kg/m2 Dr. Tu Hector DO Work Phone: [facility] 06-20-2024 08:56-0500 Body weight 77.[address] Tu Hector DO Work Phone: [facility] 05-31-2024 16:45-0500 Body temperature 99.1 [degF] Sergio Athy PA-C Work Phone: [facility] 05-31-2024 16:45-0500 Body weight 75.4 kg Sergio Athy PA-C Work Phone: [facility] 05-31-2024 16:45-0500 Diastolic blood pressure 84 mm[Hg] Sergio Athy PA-C Work Phone: [facility] 05-31-2024 16:45-0500 Heart rate 94 /min Sergio Athy PA-C Work Phone: [facility] 05-31-2024 16:45-0500 Respiratory rate 18 /min Sergio Athy PA-C Work Phone: [facility] 05-31-2024 16:45-0500 SaO2% (BldA) [Mass fraction] 95 % Sergio Athy PA-C Work Phone: [facility] 05-31-2024 16:45-0500 Systolic blood pressure 140 mm[Hg] Sergio Mohr PA-C Work Phone: [facility] 02-21-2024 14:34-0400 Body height 157.[address] SHANTEL SHI MD [facility] 02-21-2024 14:34-0400 Body temperature 98.42 [degF] DR SHANTEL SHI MD [facility] 02-21-2024 14:34-0400 Body weight 72.[address] SHANTEL SHI MD [facility] 02-21-2024 14:34-0400 Diastolic Blood Pressure Non-Invasive 94 mm[Hg] DR SHANTEL SHI MD [facility] 02-21-2024 14:34-0400 Heart rate 110 /min DR SHANTEL SHI MD [facility] 02-21-2024 14:34-0400 Respiratory rate 20 /min DR SHANTEL SHI MD [facility] 02-21-2024 14:34-0400 Systolic Blood Pressure Non-Invasive 148 mm[Hg] DR SHANTEL SHI MD [facility] 02-20-2024 15:18-0400 Blood Pressure Cuff Size CHRIS ALATORRE DO [facility] 02-20-2024 15:18-0400 Blood Pressure Location CHRIS ALATORRE DO [facility] 02-20-2024 15:18-0400 Blood Pressure Method CHRIS ALATORRE DO [facility] 02-20-2024 15:18-0400 Body temperature 98.24 [degF] CHRIS MASTERSONESKA DO [facility] 02-20-2024 15:18-0400 Diastolic Blood Pressure Non-Invasive 87 mm[Hg] CHRIS MASTERSONESKA DO [facility] 02-20-2024 15:18-0400 Heart rate 98 /min CHRIS MASTERSONESKA DO [facility] 02-20-2024 15:18-0400 Respiratory rate 18 /min CHRIS METZKA DO [facility] 02-20-2024 15:18-0400 Systolic Blood Pressure Non-Invasive 134 mm[Hg] CHRIS METZKA DO [facility] 02-11-2024 07:53-0400 Diastolic Blood Pressure Non-Invasive 84 mm[Hg] DR SHANTEL SHI MD [facility] 02-11-2024 07:53-0400 Heart rate 80 /min DR SHANTEL SHI MD [facility] 02-11-2024 07:53-0400 Respiratory rate 18 /min DR SHANTEL SHI MD [facility] 02-11-2024 07:53-0400 Systolic Blood Pressure Non-Invasive 114 mm[Hg] DR SHANTEL SHI MD [facility] 02-11-2024 07:09-0400 Diastolic Blood Pressure Non-Invasive 59 mm[Hg] DR SHANTEL SHI MD [facility] 02-11-2024 07:09-0400 Heart rate 78 /min DR SHANTEL SHI MD [facility] 02-11-2024 07:09-0400 Respiratory rate 18 /min DR SHANTEL SHI MD [facility] 02-11-2024 07:09-0400 Systolic Blood Pressure Non-Invasive 115 mm[Hg] DR SHANTEL SHI MD [facility] 02-11-2024 06:57-0400 Heart rate 80 /min DR SHANTEL SHI MD [facility] 02-11-2024 06:57-0400 Respiratory rate 20 /min DR SHANTEL SHI MD [facility] 02-11-2024 06:34-0400 Body height 157.[address] SHANTEL SHI MD [facility] 02-11-2024 06:34-0400 Body temperature 99.32 [degF] DR SHANTEL SHI MD [facility] 02-11-2024 06:34-0400 Body weight [address] SHANTEL SHI MD [facility] 02-11-2024 06:34-0400 Diastolic Blood Pressure Non-Invasive 77 mm[Hg] DR SHANTEL SHI MD [facility] 02-11-2024 06:34-0400 Systolic Blood Pressure Non-Invasive 115 mm[Hg] DR SHANTEL SHI MD [facility] 02-04-2024 13:05-0400 Body temperature 99.86 [degF] DR SHANTEL SHI MD [facility] 02-04-2024 13:05-0400 Body weight [address] SHANTEL SHI MD [facility] 02-04-2024 13:05-0400 Diastolic Blood Pressure Non-Invasive 82 mm[Hg] DR SHANTEL SHI MD [facility] 02-04-2024 13:05-0400 Heart rate 78 /min DR SHANTEL SHI MD [facility] 02-04-2024 13:05-0400 Respiratory rate 18 /min DR SHANTEL SHI MD [facility] 02-04-2024 13:05-0400 Systolic Blood Pressure Non-Invasive 125 mm[Hg] DR SHANTEL SHI MD [facility] 01-28-2024 14:03-0400 Diastolic Blood Pressure Non-Invasive 87 mm[Hg] MAXINE TRIVEDI MD [facility] 01-28-2024 14:03-0400 Heart rate 86 /min MAXINE TRIVEDI MD [facility] 01-28-2024 14:03-0400 Respiratory rate 16 /min MAXINE TRIVEDI MD [facility] 01-28-2024 14:03-0400 Systolic Blood Pressure Non-Invasive 141 mm[Hg] MAXINE TRIVEDI MD [facility] 01-28-2024 12:45-0400 Body temperature 100.4 [degF] MAXINE TRIVEDI MD [facility] 01-28-2024 12:45-0400 Body weight 74.4 kg MAXINE TRIVEDI MD [facility] 07-12-2024 12:45-0400 Diastolic Blood Pressure Non-Invasive 93 mm[Hg] MAXINE TRIVEDI MD [facility] 01-28-2024 12:45-0400 Heart rate 105 /min MAXINE TRIVEDI MD [facility] 01-28-2024 12:45-0400 Respiratory rate 16 /min MAXINE TRIVEDI MD [facility] 01-28-2024 12:45-0400 Systolic Blood Pressure Non-Invasive 151 mm[Hg] MAXINE TRIVEDI MD [facility] 07-13-2023 17:41-0500 Heart rate 82 /min [facility] 07-13-2023 17:41-0500 Respiratory rate 16 /min [facility] 07-13-2023 15:22-0500 Body height 157.48 cm [facility] 07-13-2023 15:22-0500 Body mass index (BMI) [Ratio] 30.7 kg/m2 [facility] 07-13-2023 15:22-0500 Body temperature 97.8 [degF] [facility] 07-13-2023 15:22-0500 Body weight 76.29 kg [facility] 07-13-2023 15:22-0500 Diastolic blood pressure 91 mm[Hg] [facility] 07-13-2023 15:22-0500 SaO2% (BldA) [Mass fraction] 96 % [facility] 07-13-2023 15:22-0500 Systolic blood pressure 148 mm[Hg] [facility] 01-12-2023 10:24-0400 Body height 160 cm Oz Salazar MD Work Phone: [facility] 01-12-2023 10:24-0400 Body mass index (BMI) [Ratio] 28.87 kg/m2 Oz Salazar MD Work Phone: [facility] 01-12-2023 10:24-0400 Body weight 73.94 kg Oz Salazar MD Work Phone: [facility] 01-12-2023 10:24-0400 Diastolic blood pressure 75 mm[Hg] Oz Salazar MD Work Phone: [facility] 01-12-2023 10:24-0400 Heart rate 77 /min Oz Salazar MD Work Phone: [facility] 01-12-2023 10:24-0400 Systolic blood pressure 120 mm[Hg] Oz Salazar MD Work Phone: [facility] 12-20-2022 13:42-[address] LOKI PETERS DO [facility] 12-20-2022 13:42-0400 Body temperature 99.32 [degF] DR LOKI PETERS DO [facility] 12-20-2022 13:42-0400 Diastolic Blood Pressure Non-Invasive [address] LOKI PETERS DO [facility] 12-20-2022 13:42-0400 Heart rate 99 /min DR LOKI PETERS DO [facility] 12-20-2022 13:42-0400 Respiratory rate 16 /min DR LOKI PETERS DO [facility] 12-20-2022 13:42-0400 Systolic Blood Pressure Non-Invasive [address] LOKI PETERS DO [facility] 12-20-2022 12:55-0400 Body temperature 100.4 [degF] Jose F Cruz APRN.RX SPECIALIST Work Phone: [facility] 12-20-2022 12:55-0400 Body weight 71.49 kg Jose F Cruz APRN.RX SPECIALIST Work Phone: [facility] 12-20-2022 12:55-0400 Diastolic blood pressure 84 mm[Hg] [facility] G[facility] WORK[facility].RX SPECIALIST Work Phone: [facility] 12-20-2022 12:55-0400 Heart rate 115 /min [facility] GARAGE WORKER.RX SPECIALIST Work Phone: [facility] 12-20-2022 12:55-0400 Respiratory rate 21 /min [facility] GARAGE WORKER.RX SPECIALIST Work Phone: [facility] 12-20-2022 12:55-0400 SaO2% (BldA) [Mass fraction] 97 % [facility] GARAGE WORKER.RX SPECIALIST Work Phone: [facility] 12-20-2022 12:55-0400 Systolic blood pressure 108 mm[Hg] [facility] GARAGE WORKER.RX SPECIALIST Work Phone: [facility] Encounters Encounter Date Encounter Type Care Provider Facility Start: 01-23-[address] Ranjith Chance MD -[facility] Start: 01-23-2025 End: 01-23-[address] Alis Chance MD -[facility] Work Phone: Start: 01-23-2025 End: 01-23-[address] Tu Hector DO Work Phone: -[facility] Start: 01-16-2025 End: 01-16-[address] Tu Hector DO Work Phone: -Cat Scan [facility] Start: 01-16-2025 End: 01-16-2025 Patient encounter procedure Anayeli Audelia HOSPICE COORDINATOR-C -[facility] [facility] Work Phone: Start: 01-16-2025 End: 01-16-2025 ambulatory Anayeli Audelia HOSPICE COORDINATOR Facility:[facility] Start: 01-04-[address] Ranjith Chance MD -[facility] Start: 01-02-[address] Ranjith Chance MD -[facility] Start: 01-02-2025 End: 01-02-[address] Alis Chance MD -[facility] Work Phone: Start: 01-02-2025 End: 01-02-[address] Tu Hector DO Work Phone: [facility] Work Phone: Start: 12-12-2024 End: 12-12-2024 Patient encounter procedure Anayeli Win NP-[place] -[facility] Work Phone: Start: 12-12-2024 End: 12-12-[address] Tu Hector DO Work Phone: [facility] Work Phone: Start: 12-12-[address] Ranjith Chance MD -[facility] Start: 11-24-2024 End: 11-24-2024 Emergency department patient visit ENID FORMAN MD [facility] Start: 11-21-2024 End: 11-21-[address] Alis Chance MD -[facility] Work Phone: Start: 11-21-2024 End: 11-21-2024 ambulatory Tu Hector Facility[facility] Start: 11-17-2024 End: 11-17-[address] Kilo Morse MD -[facility] Work Phone: Start: 11-17-2024 End: 11-17-2024 ambulatory Tu Hector [facility] Start: 11-16-2024 ambulatory Tu Tawny Facility :[facility] Start: 11-16-2024 Non-patient / Non-visit Dr. Zhanna Hicks MD -[facility] Start: 11-16-2024 End: 11-16-2024 Admission to same day surgery center Dr. Omar Hicks MD -[facility] Start: 11-16-2024 End: 11-16-2024 ambulatory Tu Hector Facility:[facility] Start: 11-09-2024 End: 11-09-2024 Patient encounter procedure Anayeli Win HOSPICE COORDINATOR-C -[facility] Work Phone: Start: 11-09-2024 End: 11-09-2024 ambulatory Tu Hector Facility[facility] Start: 11-01-2024 End: 11-01-2024 Telephone encounter Wilfrido Luis Work Phone: [facility] - [place] Comment on above: Other Start: 10-31-2024 End: 10-31-2024 Patient encounter procedure Anayeli Win HOSPICE COORDINATOR-C -[facility] Work Phone: Start: 10-31-2024 End: 10-31-2024 ambulatory Tu Hector Facility[facility] Start: 10-27-2024 End: 10-27-[address] Omar Hicks MD -[facility] Work Phone: Start: 10-27-2024 End: 10-27-2024 ambulatory Tu Hector Facility[facility] Start: 10-26-2024 End: 10-26-2024 Patient encounter procedure Anayeli Garciaach HOSPICE COORDINATOR-C -[facility] Work Phone: Start: 10-26-2024 End: 10-26-2024 ambulatory Tu Hector Facility[facility] Start: 10-26-2024 End: 10-26-2024 Office outpatient new 60 minutes Joselyn Tucker MD Work Phone: [facility] Endocrinology [facility] [place] Comment on above: Multinodular goiter (nontoxic) (Primary Dx); Stage 3a chronic kidney disease (HCC) Start: 10-26-2024 End: 10-26-2024 ambulatory [facility] Start: 10-25-2024 End: 10-25-[address] Wilfrido Karimi MD -[facility] Work Phone: Start: 10-25-2024 End: 10-25-2024 ambulatory Tu Hansonlay Facility:[facility] Start: 10-24-2024 End: 11-05-2024 Telephone encounter Silvio Fortune MD Work Phone: [facility] Thoracic [facility] - [place] Comment on above: Malignant small cell cancer (CMS/HCC) (HCC) (Primary Dx) Start: 10-24-2024 End: 10-24-2024 Office outpatient visit 10 minutes Silvio Fortune MD Work Phone: [facility] Thor[facility] - [place] Comment on above: Malignant small cell cancer (CMS/HCC) (HCC) (Primary Dx); Adenopathy; Right atrial mass; Pleural effusion Start: 10-24-2024 End: 10-24-2024 ambulatory [facility] Start: 10-23-2024 End: 10-24-2024 Telephone encounter Scot Sandy Malick DO Work Phone: [facility] [place] Start: 10-21-2024 End: 10-21-2024 Emergency department patient visit Dr. Tu Hector DO Work Phone: -Emergency Department Work Phone: Start: 10-20-2024 End: 10-20-2024 Subsequent hospital visit by physician Silvio Fortune MD Work Phone: [facility] PET Comment on above: Pleural mass Start: 10-20-2024 End: 10-20-2024 [facility] Start: 10-19-2024 End: 10-19-2024 Orders Only Rachelniki Johnson DO Work Phone: [facility] Lung Nodule [facility] [place] Comment on above: Small cell carcinoma of left lung, unspecified part of lung (HCC) (Primary Dx) Start: 10-17-2024 End: 10-17-2024 Documentation procedure Aixa Roche [facility] Ana Maria g Nodule [facility] [place] Comment on above: Tumor Board Recommen dations (Thoracic Tumor Board Recommendations 10/17/24) Start: 10-17-2024 End: 10-19-2024 Telephone encounter Aixa Roche [facility] Lung Nodule [facility] [place] Comment on above: Care Coordination (E xpedite PET scan and send records to med onc in [place] ) Start: 10-17-2024 End: 10-17-2024 Office outpatient visit 25 minutes Rachel Johnson DO Work Phone: [facility] [place] Comment on above: Small cell carcinoma of left lung, unspecified part of lung (HCC) (Primary Dx); Chronic obstructive pulmonary disease, unspecified COPD type (HCC); 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 Start: 10-17-2024 End: 10-17-2024 ambulatory RACHEL NANETTEGRASS [facility] Start: 10-17-2024 End: 10-17-2024 Subsequent hospital visit by physician Silvio Fortune MD Work Phone: [facility] Comment on above: Pleural mass Start: 10-17-2024 End: 10-17-2024 ambulatory SILVIO FORTUNE [facility] Start: 10-10-2024 End: 10-10-[address] Tu Hector DO -Cat Scan, [facility] Work Phone: Start: 10-10-2024 End: 10-10-[address] Tu Hector DO Work Phone: [facility] Work Phone: Start: 10-09-2024 End: 10-10-2024 ambulatory CAIN MEJIA [facility] Start: 10-09-2024 End: 10-09-2024 Subsequent hospital visit by physician Cain Mejia MD Work Phone: [facility] Comment on above: Hilar mass; Adenopathy; Lung mass Start: 10-06-[address] JANNETH SLATER MD Facility:A Start: 10-05-2024 End: 10-06-2024 ambulatory NACHO RAMÍREZ [facility] Start: 10-05-2024 End: 10-06-2024 Subsequent hospital visit by physician Guanakito Rodriguez MD Work Phone: [facility] Cardiac Post Intervention Progressive Care Unit [facility] PCU 4W Comment on above: Pleural effusion (Pr imary Dx); Lung mass Start: 10-05-2024 End: 10-05-2024 Telephone encounter Cain Mejia MD Work Phone: [facility] [place] Comment on above: Care Coordination Start: 10-05-2024 End: 10-05-2024 Emergency department patient visit Dr. Tu Hector DO Work Phone: -Emergency Department Work Phone: Start: 10-03-2024 End: 10-03-2024 Office outpatient new 45 minutes Wilfrido Hiroberta DO Work Phone: [facility] [address] Comment on above: Pericardial effusion Start: 10-03-2024 End: 10-03-2024 Telephone encounter Aixa Roche [facility] Nodule [facility] [place] Comment on above: Care Coordination (L ehsan Nodule Follow up / Expedite LNC and Cardiology eval / PFT From [facility] ) Start: 10-03-2024 End: 10-03-2024 ambulatory [facility] Start: 10-03-2024 End: 10-03-2024 Office outpatient new 45 minutes Rachel Johnson DO Work Phone: [facility] [place] Comment on above: Lung mass (Primary D x); Pulmonary emphysema, unspecified emphysema type (HCC); Adenopathy; Pericardial effusion; Chronic obstructive pulmonary disease, unspecified COPD type (HCC); History of tobacco use Start: 10-03-2024 End: 10-03-2024 ambulatory RACHEL JOHNSON [facility] Start: 10-03-2024 End: 10-03-2024 Office outpatient new 60 minutes Silvio Fortune MD Work Phone: [facility] Cardiovascular Thoracic Surgery - [place] Comment on above: Hilar mass (Primary Dx); Right atrial mass Start: 10-03-2024 End: 10-03-2024 ambulatory SILVIO FORTUNE [facility] Start: 09-29-2024 ambulatory Jose Perdomo Facility:[facility] Start: 09-28-2024 End: 09-28-2024 Patient encounter procedure Rhiannon Georges HOSPICE COORDINATORJhonathanC -[facility] Work Phone: Start: 09-28-2024 End: 09-28-2024 ambulatory Tu Hector Facility[facility] Start: 09-25-2024 End: 09-25-2024 ambulatory TU HECTOR DO Facility:[facility] Start: 09-25-2024 Non-patient / Non-visit Dr. Jose joshi DO -[facility] Start: 09-25-2024 End: 09-25-[address] Tu Hector DO Work Phone: [facility] Work Phone: Start: 09-25-2024 End: 09-25-2024 Patient encounter procedure Rhiannon Georges HOSPICE COORDINATOR-C -Pulmonary Services/Neurology Work Phone: Start: 09-25-2024 End: 09-25-2024 ambulatory Rhiannon Georges NP Facility:[facility] Start: 09-22-2024 End: 09-22-[address] Tu Hector DO Work Phone: [facility] Work Phone: Start: 09-22-2024 End: 09-22-2024 Patient encounter procedure Rhiannon Georges HOSPICE COORDINATOR-C -Laboratory Work Phone: Start: 09-22-2024 End: 09-22-2024 Patient encounter procedure Rhiannon Georges HOSPICE COORDINATOR-C -[facility] Work Phone: Start: 09-22-2024 End: 09-22-2024 ambulatory Tu Hector Facility[facility] Start: 09-21-2024 End: 09-22-2024 ambulatory Tu Hector Facility:[facility] Start: 09-19-2024 End: 09-19-2024 ambulatory TU HECTOR DO Facility[facility] Start: 09-19-2024 End: 09-19-2024 Patient encounter procedure JOSELIN MAURER GARAGE WORKER-RX SPECIALIST [facility] Start: 09-18-[address] Ranjith Chance MD -[facility] Start: 09-18-2024 End: 09-18-[address] Alis Chance MD -[facility] Work Phone: Start: 09-18-2024 End: 09-18-2024 ambulatory Tu Hansonlay Facility:[facility] Start: 09-13-2024 End: 09-14-2024 Emergency department patient visit Dr. Chris Maria MD -Emergency Department Work Phone: Start: 09-13-2024 End: 09-17-2024 ambulatory TU HECTOR DO Facility[facility] Start: 09-13-2024 End: 09-17-2024 Outreach Lab JOSELIN MAST GARAGE WORKER-RX SPECIALIST [facility] Start: 09-13-2024 End: 09-13-2024 ambulatory JOSELIN MAST GARAGE WORKER-RX SPECIALIST Facility:[facility] Start: 09-13-2024 End: 09-13-2024 Patient encounter procedure JOSELIN MAST GARAGE WORKER-RX SPECIALIST [facility] Start: 09-03-2024 End: 09-03-2024 Follow-up encounter Renetta Villalobos GARAGE WORKER.RX SPECIALIST Work Phone: [facility] Start: 09-02-2024 End: 09-02-2024 ambulatory SERGIO ATHY Facility:[facility] Start: 09-02-2024 End: 09-02-2024 Patient encounter procedure Dung Littlejohn MD Work Phone: [facility] Comment on above: COPD with exacerbati on (HCC) (Primary Dx); URI, acute Start: 06-20-2024 End: 06-20-2024 Emergency department patient visit Dr. Anh Irene DO -Emergency Department Work Phone: Start: 05-31-2024 End: 05-31-2024 Subsequent hospital visit by physician Xr [facility] [place] Work Phone: Radiology Comment on above: Acute cough [R05.1] Start: 05-31-2024 End: 05-31-2024 ambulatory SERGIO R ATHY Facility:[facility] Start: 05-31-2024 End: 05-31-2024 Patient encounter procedure Sergio Mohr PA-C Work Phone: [facility] Comment on above: Infiltrate of lower lobe of left lung present on imaging study (Primary Dx) Start: 02-21-2024 End: 02-21-2024 Emergency department patient visit DR SHANTEL SHI MD [facility] Start: 02-21-2024 ambulatory CHRIS ALATORRE DO Facili ty:B Start: 02-20-2024 End: 02-20-2024 Emergency department patient visit CHRIS ALATORRE DO [facility] Start: 02-11-2024 End: 02-11-2024 Emergency department patient visit DR SHANTEL SHI MD [facility] Start: 02-04-2024 End: 02-04-2024 Emergency department patient visit DR SHANTEL SHI MD [facility] Start: 01-28-2024 End: 01-28-2024 Emergency department patient visit MAXINE TRIVEDI MD [facility] Start: 11-25-2023 End: 11-25-2023 ambulatory TU HECTOR DO Facility:[facility] Start: 11-25-2023 End: 11-25-2023 Patient encounter procedure TU HECTOR DO [facility] Start: 10-28-2023 End: 10-28-2023 ambulatory [facility] Work Phone: Start: 10-28-2023 End: 10-28-2023 Patient encounter procedure [facility] Work Phone: Start: 09-29-2023 End: 10-03-2023 ambulatory TU HECTOR DO Facility:[facility] Start: 09-29-2023 End: 10-03-2023 Outreach Lab TU HECTOR DO [facility] Start: 07-13-2023 End: 07-13-2023 Emergency department patient visit [facility]-Emergency Department Work Phone: Start: 03-09-2023 End: 03-13-2023 ambulatory TU HECTOR DO Facility:[facility] Start: 03-09-2023 End: 03-13-2023 Outreach Lab TU HECTOR DO [facility] Start: 01-18-2023 ambulatory Marty Daily PA-C Work Phone: [facility] Orthopedic Surg Start: 01-15-2023 Telephone encounter Oz davis MD Work Phone: [facility] Start: 01-12-2023 End: 01-12-2023 Office outpatient new 30 minutes Oz Salazar MD Work Phone: [facility] Comment on above: Elbow mass, left (Pr imary Dx) Start: 12-30-2022 End: 12-30-2022 Patient encounter procedure TU HECTOR DO [facility] Start: 12-20-2022 End: 12-20-2022 Emergency department patient visit DR LOKI PETERS DO [facility] Start: 12-20-2022 End: 12-20-2022 Patient encounter procedure Jose F Cruz APRN.RX SPECIALIST Work Phone: [facility] Comment on above: Cat bite, initial en counter (Primary Dx) Start: 10-30-2021 End: 10-30-2021 Patient encounter procedure CHANDLER WEBER GARAGE WORKER-RX SPECIALIST [facility] Start: 10-24-2021 End: 10-24-2021 Patient encounter procedure TU HECTOR DO [facility] Start: 10-23-2021 End: 10-23-2021 Patient encounter procedure TU HECTOR DO [facility] Start: 01-14-2021 End: 01-14-2021 Subsequent hospital visit by physician Xr [facility] Work Phone: Radiology Comment on above: Cough [R05] Start: 12-17-2020 End: 12-17-2020 Subsequent hospital visit by physician Xr [facility] Work Phone: Radiology Comment on above: Cough [R05] Procedures Date Procedure Procedure Detail Performing Clinician Start: 01-23-[address] Tu Hector DO Work Phone: Start: 01-16-2025 CT of thorax, abdome n and pelvis with contrast Dr. Tu Hector DO Work Phone: Start: 01-02-[address] Tu Hector DO Work Phone: Start: 12-12-[address] Tu Hector DO Work Phone: Start: 12-12-2024 Serum inorganic phos phate measurement Dr. Tu Hector DO Work Phone: Start: 11-16-2024 Plain chest X-ray Dr. Jackelyn Hector DO Work Phone: Start: 11-16-2024 Fluoroscopic guidance Susy Hector DO Work Phone: Start: 11-09-2024 Total iron binding c apacity measurement Dr. Tu Hector DO Work Phone: Start: 10-21-2024 Plain chest X-ray Dr. Jackelyn Hector DO Work Phone: Start: 10-21-[address] Tu Hector DO Work Phone: Start: 10-10-2024 Fine needle aspirati on using ultrasound guidance Dr. Tu Hector DO Work Phone: Start: 10-09-2024 Smr prim src gram/gi emsa stain bct fungi/cell Cain Mejia MD Work Phone: Start: 10-06-2024 Glucose quantitative blood xcpt reagent strip Emile Horne DO Work Phone: Start: 10-06-2024 Radiologic exam swal low function contrast study Sushila Tam MD Work Phone: Start: 10-06-2024 Radiologic exam ches t 2 views Sushila Tam MD Work Phone: Start: 10-06-2024 Thoracentesis needle /cath pleura w/imaging Sushila Tam MD Work Phone: Start: 10-06-2024 Glucose quantitative blood xcpt reagent strip Emile Horne DO Work Phone: Start: 10-06-2024 Comprehensive metabo lic panel Sushila Tam MD Work Phone: Start: 10-05-2024 CT angiography of ch est with contrast Dr. Tu Hector DO Work Phone: Start: 10-05-2024 X-ray of chest, PA a nd lateral views Dr. Tu Hector DO Work Phone: Start: 10-05-[address] Tu Hector DO Work Phone: Start: 10-05-[address] Maldonado in [place] DO Work Phone: Start: 10-05-2024 SARS-CoV-2, Influenz a & RSV (PCR) Dr. Tu Hector DO Work Phone: Start: 09-13-2024 CT angiography of ch est with contrast Dr. Tu Hector DO Work Phone: Start: 09-13-2024 X-ray of chest, PA a nd lateral views Dr. Tu Hector DO Work Phone: Start: 09-13-2024 Lymphocyte percent differential count Dr. Tu Hector DO Work Phone: Start: 09-13-2024 SARS-CoV-2, Influenz a & RSV (PCR) Dr. Tu Hector DO Work Phone: Start: 06-20-[address] Joel gloria Ta[place] DO Work Phone: Start: 06-20-2024 SARS-CoV-2, Influenz a & RSV (PCR) Dr. Tu Hector DO Work Phone: Start: 06-20-2024 Plain chest X-ray Dr. Jackelyn Hector DO Work Phone: Start: 05-31-2024 Radiologic exam ches t 2 views Sergio Mohr PAJhonathanC Work Phone: Start: 10-28-2023 Plain x-ray of pelvi s and lower extremity Start: 10-28-2023 Radiologic examinati on of knee Start: 01-14-2021 Radiologic exam ches t 2 views Silvio Perez GARAGE WORKER.RX SPECIALIST Work Phone: Start: 12-17-2020 Radiologic exam ches t 2 views Renetta Villalobos GARAGE WORKER.RX SPECIALIST Work Phone: Start: 07-19-2012 Total knee replacement TU HECTOR DO Comment on above: Right Start: 07-19-2010 Total knee replacement TU HECTOR DO Comment on above: Left Start: 07-19-2000 Lumbar (qualifier value) TU HECTOR DO Comment on above: L5 surgery Appendectomy TU HECTOR DO Back structure, excl uding neck (body structure) TU HECTOR DO Comment on above: Pain management did injections in lower back and burnt nerves in back. Decompression of med gideon nerve TU HECTOR DO Comment on above: Right Fracture of foot (disorder) TU COLESY DO Comment on above: Right Fracture of tibia AN D fibula (disorder) TU HECTOR DO Comment on above: Left Glenohumeral joint structure (body structure) TU COLESY DO Comment on above: Left, ligament repai r Ligation of fallopian tube K DOMINIC HECTOR DO Plan of Treatment Date Care Activity Detail Author Start: 01-27-2034 DTaP/Tdap/Td Vaccines (3 - Td or Tdap) DTaP/Tdap/Td Vaccines (3 - Td or Tdap) [facility] Start: 01-27-2034 Urine microalbumin profile DTaP,Tdap,Td Vaccine (3 - Td or Tdap) [facility] Start: 12-15-2026 RSV Vaccine (1 - 1-dose 75+ series) RSV Vaccine (1 - 1-dose 75+ series) [facility] Start: 10-29-2025 End: 10-29-2025 Patient encounter procedure 10/29/2025 11:00 AM EDT Office Visit [facility] [address] [place] [phone] Joselyn Tucker MD [address] [place], [place] [id number] [facility] Start: 03-19-2025 Influenza vaccination Influenza Vaccine (Season Ended) [facility] Start: 01-23-2025 [facility] Start: 01-16-2025 Venous catheter care management [facility] Start: 01-02-2025 [facility] Start: 12-12-2024 [facility] Start: 11-16-2024 Patient discharge [facility] Start: 11-16-2024 Anesthesia access central venous circulation ANESTH VASCULAR ACCESS [facility] Start: 11-16-2024 Insj tunneled ctr vad w/subq port age 6 yr/> INSERT TUNNELED CV CATH [facility] Start: 11-15-2024 End: 11-15-2024 Patient encounter procedure 11/15/2024 4:00 PM EDT Office Visit [facility] [address] [place] [address] Wilfrido Luis DO [address] [place] [address] [facility] Start: 10-31-2024 Patient referral [facility] Work Phone: Start: 10-31-2024 Venous catheter care management [facility] Start: 10-30-2024 End: 10-30-2024 Patient encounter procedure 10/30/2024 3:00 PM EDT Appointment [facility] [address] [place] [phone] Silvio Fortune MD [address] [place] [address] [facility] Start: 10-21-2024 [facility] Start: 10-21-2024 [facility] Start: 10-20-2024 End: 10-20-2024 Patient encounter procedure 10/20/2024 2:00 PM EDT Appointment [facility] [address] [place] [phone] Silvio Fortune MD [address] [place] [address], [address] [place] [address] [facility] Start: 10-17-2024 End: 10-17-2024 Patient encounter procedure [facility] Start: 10-17-2024 Subsequent hospital visit by physician 10/17/2024 9:00 AM EDT Hospital Encounter [facility] [address] [place] [phone] Silvio Fortune MD [address] [place] [address] [facility] Start: 10-09-2024 End: 10-09-2024 Admission to same day surgery center 10/09/2024 1:30 PM EDT - 10/09/2024 3:[address] [facility] Endoscopy [address] [place] [phone] Cain Mejia MD [address] [place] [address] ENDOBRONCHIAL ULTRASOUND WITH TRANSBRONCHIAL NEEDLE ASPIRATION. POSSIBLE ENDOBRONCHIAL BIOPSIES, NEEDLE ASPIRATION, AND BRUSHINGS. [84989 (CPT )] [facility] Endoscopy Comment on above: ENDOBRONCHIAL ULTRASOUND WITH TRANSBRONC HIAL NEEDLE ASPIRATION. POSSIBLE ENDOBRONCHIAL BIOPSIES, NEEDLE ASPIRATION, AND BRUSHINGS. [60322 (CPT )] Start: 10-09-2024 End: 10-09-2024 [facility] ebus guided sampl 3/> node station/strux BRONCHOSCOPY, RIGID OR FLEXIBLE, WITH ENDOBRONCHIAL ULTRASOUND Hilar mass Adenopathy Lung mass 10/09/2024 1:[address] [facility] Gastroenterology Start: 10-09-2024 Subsequent hospital visit by physician 10/09/2024 1:30 PM EDT Hospital Encounter [facility] [address] [place] [phone] Cain Mejia MD [address] [place] [address] [facility] Endoscopy Start: 10-05-2024 [facility] Start: 10-05-2024 End: 10-05-2024 [facility] Start: 10-05-2024 Bacteria identified in Blood by Culture Blood Culture [facility] Start: 09-14-2024 [facility] Start: 09-13-2024 [facility] Start: 09-13-2024 [facility] Start: 07-19-2024 Advance Directive Discussion Advance Directive Discussion [facility] Start: 07-19-2024 Medicare Advantage Annual Wellness Visit Medicare Advantage Annual Wellness Visit [facility] Start: 06-20-2024 [facility] Start: 03-19-2024 Covid-19 Vaccine ( season) Covid-19 Vaccine ( season) [facility] Start: 03-19-2024 Influenza vaccination Influenza Vaccine (#1) [facility] Start: 07-19-2023 Advance Directive Discussion Advance Directive Discussion [facility] Start: 03-19-2023 Influenza vaccination [facility] Start: 07-19-2022 ADVANCE DIRECTIVE DISCUSSION ADVANCE DIRECTIVE DISCUSSION [facility] Start: 07-19-2022 DEPRESSION ASSESSMENT DEPRESSION ASSESSMENT [facility] Start: 12-15-2016 BONE DENSITY BONE DENSITY [facility] Start: 12-15-2016 Pneumococcal Vaccine: 65+ (1 of 1 - PCV) Pneumococcal Vaccine: 65+ (1 of 1 - PCV) [facility] Start: 12-15-2016 PNEUMOCOCCAL: 65+ (1 - PCV) PNEUMOCOCCAL: 65+ (1 - PCV) [facility] Start: 12-15-2016 Screening for osteoporosis Bone Density Screening [facility] [place] Start: 2011 RSV Immunization for Adults (1 - Risk 60-74 years 1-dose series) RSV Immunization for Adults (1 - Risk 60-74 years 1-dose series) [facility] Start: 12-15-2001 Pneumococcal Vaccine: 50+ (1 of 1 - PCV) Pneumococcal Vaccine: 50+ (1 of 1 - PCV) [facility] Start: 12-15-2001 SHINGRIX VACCINE (1 of 2) SHINGRIX VACCINE (1 of 2) [facility] Start: 12-15-2001 Zoster Vaccines (1 of 2) Zoster Vaccines (1 of 2) [facility] Start: 12-15-1996 COLOGUARD (FIT-DNA) COLOGUARD (FIT-DNA) [facility] Start: 12-15-1996 Colonoscopy COLONOSCOPY [facility] Start: 12-15-1996 COLORECTAL CANCER SCREENING COLORECTAL CANCER SCREENING [facility] Start: 12-15-[address] COLONOGRAPHY [facility] Start: 12-15-1996 DIABETES SCREEN DIABETES SCREEN [facility] Start: 12-15-1996 Diabetes Screening Diabetes Screening [facility] Start: 12-15-1996 FECAL OCCULT BLOOD FECAL OCCULT BLOOD [facility] Start: 12-15-1996 Lipid panel Lipid Screening [facility] Start: 12-15-1996 LIPID SCREEN LIPID SCREEN [facility] Start: 12-15-1996 Screening for malignant neoplasm of colon [facility] Start: 12-15-1996 SIGMOIDOSCOPY SIGMOIDOSCOPY [facility] Start: 1991 Mammography MAMMOGRAM [facility] Start: 1991 Screening for malignant neoplasm of breast [facility] Start: 12-15-1970 DTaP/Tdap/Td Vaccines (1 - Tdap) DTaP/Tdap/Td Vaccines (1 - Tdap) [facility] Start: 12-15-1970 Pneumococcal Vaccine: 50+ Years (1 of 2 - PCV) Pneumococcal Vaccine: 50+ Years (1 of 2 - PCV) [facility] Start: 12-15-1970 Urine microalbumin profile [facility] Start: 12-15-1969 Anxiety Screening Anxiety Screening [facility] Start: 12-15-1969 Depression Screening Depression Screening [facility] Start: 12-15-1969 Diabetes mellitus screening Diabetes Screening [facility] Start: 12-15-1969 HEPATITIS C SCREENING HEPATITIS C SCREENING [facility] Start: 12-15-1969 Hepatitis C screening Hepatitis C Screening [facility] Start: 1963 Depression Monitoring Depression Monitoring [facility] Start: 1963 Depression Screening Depression Screening [facility] Start: 12-15-1957 Pneumococcal Vaccine: 65+ Years (1 - PCV) Pneumococcal Vaccine: 65+ Years (1 - PCV) [facility] Start: 06-17-1952 COVID-19 VACCINE (#1) COVID-19 VACCINE (#1) [facility] Start: 1950 Lipid panel Lipid Panel [facility] Start: 1950 Screening for malignant neoplasm of colon [facility] Start: 1950 Screening for osteoporosis Bone Density Scan [facility] Start: 1950 Thyroid Nodule Ultrasound Thyroid Nodule Ultrasound [facility] End: 10-06-2024 Aerobic and Anaerobic Culture with Stain Aerobic and Anaerobic Culture with Stain Microbiology Routine Once (Lab) for 1 Occurrences starting 10/06/2024 until 10/06/2024 [facility] Work Phone: Comment on above: Once (Lab) for 1 Occurrences starting until 10/06/2024 Bacteria identified in Lower respiratory specimen by Aerobe culture Respiratory culture and Stain Microbiology Routine Hilar mass Adenopathy Lung mass 10/09/2024 3:34 PM EDT [facility] End: 10-06-2024 Bacteria identified in Unspecified specimen by Aerobe culture Culture, Aerobic Bacteria with Gram Stain Microbiology Timed Once for 1 Occurrences starting 10/06/2024 until 10/06/2024 [facility] Comment on above: Once for 1 Occurrences starting 10/07/19 until 10/06/2024 End: 10-06-2024 Bacteria identified in Unspecified specimen by Anaerobe culture Anaerobic culture Microbiology Timed Once for 1 Occurrences starting 10/06/2024 until 10/06/2024 [facility] Comment on above: Once for 1 Occurrences starting 10/07/19 until 10/06/2024 CBC W Auto Different ial panel - Blood [facility] CBC W Auto Different ial panel - Blood [facility] Comprehensive metabo lic 1999 panel - Serum or Plasma [facility] metabo lic 1999 panel - Serum or Plasma [facility] COVID & INFLUENZA A/ B & RSV PCR, ROUTINE COVID & INFLUENZA A/B & RSV PCR, ROUTINE Microbiology Routine COPD with exacerbation (HCC) URI, acute Ordered: 09/02/2024 [facility] Work Phone: Comment on above: Ordered: 09/02/2024 CT Abdomen and Pelvi s W contrast IV [facility] Fine needle aspiration [facility] Comment on above: Release Upon Ordering for 1 Occurrences starting 10/09/2024, 1 completed Folate [Moles/volume ] in Serum or Plasma [facility] Fungus identified in Unspecified specimen by Culture [facility] Comment on above: Release Upon Ordering for 1 Occurrences starting 10/09/2024 Fungus identified in Unspecified specimen by Fungus stain [facility] Comment on above: Release Upon Ordering for 1 Occurrences starting 10/09/2024 End: 10-17-2024 MR Brain WO and W contrast IV [facility] Work Phone: Comment on above: Once for 1 Occurrences starting 10/18/19 until 10/17/2024 Mycobacterium sp identified in Unspecified specimen by Organism specific culture [facility] Comment on above: Release Upon Ordering for 1 Occurrences starting 10/09/2024 End: 10-06-2024 Non-gynecologic cytology Non-gynecologic cytology Pathology and Cytology Routine Once (Lab) for 1 Occurrences starting 10/06/2024 until 10/06/2024 [facility] Comment on above: Once (Lab) for 1 Occurrences starting until 10/06/2024 Non-Gynecologic Cytology [facility] Work Phone: Comment on above: Release Upon Ordering for 1 Occurrences starting 10/09/2024 Patient Education [facility] Work Phone: Patient referral [facility] Work Phone: End: 10-20-2024 PET+CT Bone from skull base to mid-thigh W [id number] IV [facility] Work Phone: Comment on above: Once for 1 Occurrences starting 10/21/19 until 10/20/2024 [facility] Comment on above: Release Upon Ordering for 1 Occurrences starting 10/09/2024 Troponin T.cardiac [Mass/volume] in Serum or Plasma by High sensitivity method [facility] US Heart limited [facility] Walking distance 6 minutes [facility] Immunizations Immunization Date Immunization Notes Care Provider Fa [facility] 01-28-2024 tetanus toxoid, reduced diphtheria toxoid, and acellular pertussis vaccine, adsorbed MAXINE TRIVEDI MD [facility] 07-13-2023 tetanus toxoid, reduced diphtheria toxoid, and acellular pertussis vaccine, adsorbed [facility] 06-23-2006 influenza virus vaccine, unspecified formulation Jose F Cruz APRN.RX SPECIALIST Work Phone: [facility] Work Phone: 04-24-2003 influenza virus vaccine, unspecified formulation Jose F Cruz APRN.RX SPECIALIST Work Phone: [facility] Work Phone: Payers Date Payer Category Payer Medicare HMO [facility] MEDICARE ADVANTAGE Member Subscriber Plan / Payer (Effective 2024-Present) Name: Karina Fernando Relation to Subscriber: Self Name: Karina Fernando Payer ID: [id number] (NAIC) Group ID: [id number] Type: Medicare HMO Address: [address] [place] [id number] 2024 Self-pay [id number] 2021 Medicare AN[employer]M MEDICARE ADVANTAGE KHUSHI MEDIBLUE [id number] 2021-Present [address] [place] [address] Medicare O [id number] 2019 Medicare (Managed Care) [facility] ADVANTAGE HMO [id number] 2019 Unknown [id number] [id number]. [id number] 2019 Medicare [id number] 2016 Private Health Insurance [facility] [id number] 1950 Unknown [id number] 2.16.840.1.671717.3.579. 2.627 1950 Unknown [id number] 09.03.840.1.297335.3.579. 2. 1950 Unknown [id number] 2.16.840.1.979323.3.579. 2. 1950 Unknown [id number] 2.16.840.1.150573.3.579. 2. 1950 Unknown [id number] 2.16.840.1.335441.3.579. 2. 1950 Unknown [id number] 2.16.840.1.970512.3.579. 2. 1950 Unknown [id number] 2.16.840.1.785248.3.579. 2. 1950 Unknown [id number] 2.16.840.1.157184.3.579. 2. 1950 Unknown [id number] 2.16.840.1.782545.3.579. 2. 1950 Unknown [id number] 2.16.840.1.601077.3.579. 2. 1950 Unknown [id number] 2.16.840.1.237341.3.579. 2. 1950 Unknown [id number] 2.16.840.1.633126.3.579. 2. 1950 Unknown [id number] 2.16.840.1.552326.3.579. 2. 1950 Unknown [id number] 2.16.840.1.422700.3.579. 2. 1950 Unknown [id number] 2.16.840.1.272306.3.579. 2. Medicare MEDICARE PART A B [id number] Self-pay SELF PAY INSURANCE [id number] Unknown COMMERCIAL OTHER [id number] Unknown [id number] 2.16.840.1.191147.3.579. 2.462 Unknown [id number] 2.16.840.1.370325.3.579. 2.462 Unknown [id number] 2.16.840.1.264128.3.579. 2.462 Unknown [id number] 2.16.840.1.876790.3.579. 2.462 Unknown [id number] 2.16.840.1.799149.3.579. 2.462 Unknown [id number] 2.16.840.1.062741.3.579. 2.462 Unknown [id number] 2.16.840.1.493230.3.579. 2.462 Unknown [id number] 2.16.840.1.170136.3.579. 2.462 Unknown [id number] 2.16.840.1.943386.3.579. 2.462 Unknown [id number] 2.16.840.1.243075.3.579. 2.462 Unknown [id number] 2.16.840.1.696454.3.579. 2.462 Unknown [id number] 2.16.840.1.531582.3.579. 2.462 Unknown [id number] 2.16.840.1.789106.3.579. 2.462 Unknown [id number] 2.16.840.1.707697.3.579. 2.462 Unknown [id number] 2.16.840.1.420618.3.579. 2.462 Unknown [id number] 2.16.840.1.676087.3.579. 2.462 Unknown [id number] 2.16.840.1.001482.3.579. 2.462 Unknown [id number] 2.16.840.1.750789.3.579. 2.462 Unknown [id number] 2.16.840.1.932049.3.579. 2.462 Unknown [id number] 2.16.840.1.906328.3.579. 2.462 Unknown [id number] 2.16.840.1.229418.3.579. 2.462 Unknown [id number] 2.16.840.1.397885.3.579. 2.462 Unknown [id number] 2.16.840.1.116025.3.579. 2.462 Unknown [id number] 2.16.840.1.508597.3.579. 2.462 Unknown [id number] 2.16.840.1.745722.3.579. 2.462 Unknown [id number] 2.16.840.1.514837.3.579. 2.462 Unknown [id number] 2.16.840.1.503358.3.579. 2.462 Unknown [id number] 2.16.840.1.707360.3.579. 2.462 Social History Date Type Detail Facility Start: 12-12-2020 Tobacco smoking status Heavy t obacco smoker (finding) [facility] Start: 1950 Sex Assigned At Female A [facility] Start: 12-20-2022 End: 11-03-2024 Tobacco smoking status NHIS Ex-smoker [facility] Start: 1971 End: 12-15-2006 History of tobacco use Current smoker [facility] Start: 1971 End: 12-15-2006 History of tobacco use Cigarette Smoker [facility] Start: 12-20-2022 End: 10-26-2024 Cigarettes smoked current (pack per day) - Reported 1 [facility] Start: 12-20-2022 End: 10-03-2024 Tobacco use and exposure Smokeless tobacco non-user [facility] Start: 12-20-2022 End: 05-31-2024 Alcohol intake Current non-drinker of alcohol (finding) [facility] Start: 1950 Sex Assigned At Not on file [facility] Start: 01-11-2023 [facility] Start: 01-12-2023 Alcohol intake Current drinke r of alcohol (finding) [facility] Start: 01-12-2023 End: 10-26-2024 Tobacco use panel [facility] Start: 11-17-2020 End: 01-12-2023 Exposure to SARS-CoV-2 (event) Not sure [facility] Start: 07-13-2023 End: 07-13-2023 Tobacco smoking status IAIS Unknown if ever smoked [facility] Start: 04-30-2020 None [facility] Start: 04-30-2020 Alone [facility] National Score (1-10 0), lower number is lower risk Not on file [facility] Sexual Orientation Chyna Viktoriya cook [facility] Start: 09-21-2019 End: 02-16-2022 Sex Female (finding) [facility] History of tobacco use Passive smoker [facility] Start: 10-03-2024 End: 10-17-2024 Alcoholic beverage intake Ex-drinker (finding) [facility] Start: 10-05-2024 Gender identity Identifies as female gender (finding) [facility] Start: 10-05-2024 Sexual orientation Heterosexual (susy pulido) [facility] Medical Equipment Procedure Code Equipment Code Equipment Origin al Text Equipment Identifier Dates Insertion, vascular access port ([id number]) Vascular port/catheter ([id number] FDA Start: 11-16-2024 Goals Date Patient Goal Desired Activity /State Functional Status Date Assessment Result Facility 11-24-2024 Functional Status Activity Canelo marcum Independent [facility] 02-21-2024 Functional Status Room check performed [facility] 02-20-2024 Functional Status Ambulation in López, Ambulation in Room [facility] 02-11-2024 Functional Status Independent [facility] 02-04-2024 Functional Status Standard Safet y ID band on, Call device within reach, Bed in low position, Wheels locked, Upper/Half-Length side-rails up, Bedside Cart Locked, Safety level maintained [facility] 01-28-2024 Functional Status Independent [facility] 01-28-2024 Functional Status Standard Safet y ID band on, Call device within reach, Bed in low position, Wheels locked [facility] 05-11-2014 Are you deaf, or do you have serious difficulty hearing No 05/11/2014 1:16 PM EDT Bushra Koenig RN No [facility] 05-11-2014 Are you blind, or do you have serious difficulty seeing, even when wearing glasses No 05/11/2014 1:16 PM EDT Bushra Koenig, RYAN [facility] 05-11-2014 Do you have serious difficulty walking or climbing stairs No 05/11/2014 1:16 PM EDBushra Heck, RYAN [facility] 05-11-2014 Do you have difficul ty dressing or bathing No 05/11/2014 1:16 PM Bushra Benjamin, RYAN [facility] 05-11-2014 Because of a physica l, mental, or emotional condition, do you have difficulty doing errands alone such as visiting a physician's office or shopping No 05/11/2014 1:16 PM EDBushra Heck RN [facility] Mental Status Date Assessment Result Facility 11-24-2024 Mental Status Orientation Oriented x 4 [facility] 11-16-2024 Cognitive function Voice/Name [facility] Work Phone: 02-21-2024 Mental Status Oriented x 4 [facility] 02-20-2024 Mental Status Oriented x 4 [facility] 02-11-2024 Mental Status Oriented x 4 [facility] 01-28-2024 Mental Status Orientation Oriented x 4 [facility] 01-28-2024 Mental Status [facility] 05-11-2014 Because of a physica l, mental, or emotional condition, do you have serious difficulty concentrating, remembering, or making decisions No 05/11/2014 1:16 PM EDT Bushra Koenig, RN No [facility] Clinical Notes 12-17-2020 to 01-16-2025 Note Date & Type Note Facility 01-16-2025 Radiology Diagnostic study note [facility] Imaging Services [address] [place], [place] [address] CT Chest, Abd, Pel w/Contrast MR#: [id number] Acct: [id number] Name: KARINA FERNANDO Rep #: [id number] : 1950 F 74 From: Yosef Moncada MD PCP: Dr. Tu Hector, DO Status: REG CLI Study:CT Chest, Abd, Pel w/Contrast Date of E xam: 01/16/25 Exam# [id number] Ordering Dr: Anayeli Stern HOSPICE COORDINATOR HOSPICE COORDINATOR-C PROCEDURE: CT CHEST, ABD, PEL W/CONTRAST 01/16/2025 REASON FOR EXAM: ASSESS RESPONSE TO TREATMENT, EXTENSIVE SMALL CELL TECHNIQUE: Chest, abdomen and pelvis CT with intravenous contrast. Coronal and Sagittal reconstruction series were provided. One or more dose reduction techniques were used (e.g., Automated exposure control, adjustment of the mA and/or kV according to patient size, use of iterative reconstruction technique. PATIENT PREPARATION: Per protocol ORAL CONTRAST TYPE: None. CONTRAST: Isovue 300 VOLUME: 95mL RADIATION DOSE SUMMARY: CTDlvol: 31.5 mGy DLP: 980.52 mGycm COMPARISON: CTA chest, 10/05/2024. FINDINGS: CT CHEST: Lower neck: There is enlargement of the right thyroid lobe and there are multiple hypodense nodules in both thyroid lobes. There are also coarse calcifications throughout the right and left thyroid lobes. There is no supraclavicular lymphadenopathy. Mediastinum: There is no mediastinal lymphadenopathy. There is a large hiatal hernia. Heart and Vasculature: The heart size is normal. There is a small pericardial effusion. There is calcific vascular disease of the thoracic aorta and coronary arteries. Lungs and Airways: Emphysema. There is no left perihilar mass identified. There is a pleural-based nodule in the upper lobe of the left lung, posterolaterally, measuring 2.1 x 1.0 cm (was 2.5 cm in axial dimension). Pleura: There is a small left pleural effusion. Chest wall: There is mild multilevel degenerative disc disease of the thoracic spine. There are coarse calcifications noted in both breasts. There is a chemotherapy port in the right upper chest wall with the tip in the superior vena cava via the right internal jugular vein. CT ABDOMEN/PELVIS: Liver: There is a 10 mm in diameter subcapsular low-density nodule in the posterior segment of the right hepatic lobe. Gallbladder: Normal. Spleen: Normal. Pancreas: Normal. Adrenals: There is a 12 x 9 mm nodule in the right adrenal gland and a 13 x 10 mm nodule in the left adrenal gland, not definitely adenomas. Kidneys: Normal. Bladder: Normal unenhanced appearance. Reproductive Organs: The uterus is unremarkable. The ovaries are not identified. There is no free fluid in the pelvis. There is no inguinal lymphadenopathy. Bowel: There are multiple mildly distended but not abnormally dilated and fluid-filled small bowel loops, may indicate a mild ileus/enteritis. The colonic gas pattern is unremarkable. Appendix: The appendix is not identified. Lymph nodes: There is no significant intra or retroperitoneal lymphadenopathy. Vasculature: There is calcific vascular disease of the abdominal aorta. The inferior vena cava and portal venous system are normal. Peritoneum / Retroperitoneum: There are no abnormal intra or retroperitoneal masses or fluid collections. There are no abdominal wall defects. Bones: Status post PLIF, L4-5. CT/CT Chest, Abd, Pel w/Contrast IMPRESSION: 1. There is no large left perihilar mass identified. 2. There is a large hiatal hernia. 3. There is a stable pleural-based nodule in the upper lobe of the left lung. 4. Low-density nodule in the right hepatic lobe of indeterminate etiology. 5. Bilateral adrenal nodules not clearly adenomas. 6. Other findings as noted. Reading Location: [id number] CC: HOPE Win; Dr. Tu Hector, DO ~ Steeping Press Tender: Signed [facility] Work Phone: 01-02-2025 Progress note [facility] 01-02-2025 Progress note Note Date/Time January 02, 2025 10:20am [facility] [address] [place] [address] OFFICE VISIT Date of Service: 01/02/25 0955 MR#: [id number] Acct: [id number] Name: KARINA FERNANDO Rep #: [id number] : 1950 From: Alis gilliam MD Age/Sex: 74/F Location: [facility] Status: Signed HPI Subjective Date of Service 01/02/25 Chief Complaint SCLC on treatment History of Present Illness 73-year-old female smoker till 2023 when she quit after repeated respiratory tract infections. Over the course of the past few months experienced increasing dyspnea. September 13, 2024 chest CTA during an emergency room visit: IMPRESSION: 1. No CT evidence of acute pulmonary embolism. 2. Left hilar mass, left upper lobe pleural-based mass and large prevascular lymph node concerning for malignancy. 3. Diffuse emphysematous changes 4. Moderate pericardial effusion. 5. Large hiatal hernia. September 25 2024 JUDD: Pericardial effusion without tamponade, suspected right atrium 2 cm mass. October 09, 2024 EBUS: BAL and lymph node station 11 L+ for small cell cancer: October 17, 2024 brain MRI: No evidence for metastases. October 20, 2024 PET/CT: Hypermetabolic activity in the left upper lobe mass, left hilar ronny region extending into the AP window, hypermetabolic activity in the right atrium, right hepatic lobe and left adrenal gland all consistent with distant metastases. An incidental thyroid nodule first noted on ultrasound September 19, 2024, FNA was negative for malignancy. Treatment summary and response: Carboplatin, etoposide and durvalumab October 31, 2024. [facility] Medical History Delayed surgical wound healing Constipation Pericardial effusion Hilar mass Right atrial mass Genital herpes Osteoporosis Migraine Hyperlipidemia Hiatal hernia GERD (gastroesophageal reflux disease) Depression Chronic kidney disease (CKD) Bilateral leg edema Thyroid enlargement Hypokalemia Wears dentures Wears glasses Post-menopausal Cancer History of steroid therapy Arthritis Back pain History of hiatal hernia Gastric reflux Former smoker On home oxygen therapy Asthma Shortness of breath on exertion Hoarseness Chronic cough History of edema Cardiology follow-up encounter History of echocardiogram Hypertension Coughing up blood Chest pain Anemia Encounter for antineoplastic immunotherapy Encounter for chemotherapy management Small cell lung cancer Encounter for education 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 COPD (chronic obstructive pulmonary disease) Surgical History History of tubal ligation History of bunionectomy History of carpal tunnel surgery of right wrist History of eyelid surgery History of shoulder surgery History of carpal tunnel release History of bilateral knee replacement H/O breast biopsy History of appendectomy Previous back surgery Family History Mother Leukemia Osteoporosis Thyroid disorder Grandfather Brain cancer Father Respiratory disease Brother Heart disease Social History Smoking Status: Former smoker Tobacco: How many years used: 30 alcohol intake: never ROS ROS Narrative I feel a lot better Constitutional Constitutional: Reports systems reviewed and no addt'l complaints, except as documented and other Details: Able to do ADL at own pace, cannot manage 1 flightof stairs due to chronic dyspnea ; Denies anorexia, fatigue, fever(s) or weight loss Eyes Eyes: Reports systems reviewed and no addt'l complaints, except as documented; Denies change in vision ENT HEENT: Reports systems reviewed and no addt'l complaints, except as documented and hoarseness; Denies mouth lesions Cardiovascular Cardiovascular: Reports systems reviewed and no addt'l complaints, except as documented and edema; Denies chest pain with activity Respiratory/Chest Respiratory/Chest: Reports systems reviewed and no addt'l complaints, except as documented, cough, dyspnea on exertion and wheezing; Denies hemoptysis Gastrointestinal Gastrointestinal: Reports systems reviewed and no addt'l complaints, except as documented and constipation; Denies change in bowel habits, dysphagia, hematochezia or melena Genitourinary Genitourinary: Reports systems reviewed and no addt'l complaints, except as documented Musculoskeletal Musculoskeletal: Reports systems reviewed and no addt'l complaints, except as documented, back pain and other Details: Chronic back pain Integumentary Integumentary: Reports systems reviewed and no addt'l complaints, except as documented; Denies new lesions Neurologic Neurologic: Reports systems reviewed and no addt'l complaints, except as documented; Denies focal weakness, headache(s) or paresthesias Psychiatric Psychiatric: Reports systems reviewed and no addt'l complaints, except as documented Endocrine Endocrinology: Reports systems reviewed and no addt'l complaints, except as documented Hematologic/Lymphatic Hematologic/Lymphatic: Reports systems reviewed and no addt'l complaints, exceptas documented; Denies lymphadenopathy Allergic/Immunologic Allergic/Immunologic: Reports systems reviewed and no addt'l complaints, except as documented Intake Vital Signs 12/12/24 09:06 01/02/25 09:55 Height 5 ft 3 in 5 ft 3 in Weight: 70.307 kg BMI 27.4 BP 114/77 Blood Pressure Location Lt brachial Position Sitting Respiration 14 Pulse 102 H Pulse Source Monitor Temp 97.6 F L Temperature Source Temporal Artery Pulse Oximetry (%) 92 Oxygen Delivery Method nasal canula Oxygen Flow Rate (L/min) 3 Intake Hall Tender Required: No Accompanied by: Self Is patient in pain?: Yes (B/L forearm, fingers, and mid back) Pain scale (1-10):8 Allergies Opioids - Morphine Analogues Allergy (Severe, Verified 01/02/25 10:00) Hives alendronate sodium (From Fosamax) Allergy (Verified 01/02/25 10:00) Pain in joints cefaclor (From Ceclor) Allergy (Verified 01/02/25 10:00) Hives ezetimibe Allergy (Verified 01/02/25 10:00) Other Penicillins Allergy (Verified 01/02/25 10:00) Hives tramadol HCl (From Ultram) Allergy (Verified 01/02/25 10:00) Hives erythromycin base Adverse Reaction (Verified 01/02/25 10:00) Nausea Medications ?Medication ?Instructions ?Recorded ?Confirmed ?Type albuterol sulfate 90 mcg/actuation 1 - 2 puff inhalati on Q4H PRN PRN 08/24/19 01/02/25 History aerosol inhaler Sob &/Or Wheezing loratadine 10 mg tablet 10 mg PO DAILY 08/24/1912/17 History multivitamin 1 tab PO QAM 09/18/24 History albuterol sulfate 2.5 mg/3 mL 2.5 mg inhalation PRN KS N 09/22/24 01/02/25 History (0.083 %) solution for nebulization shortness of breat h or wheezing lidocaine-prilocaine 2.5 %-2.5 % 1 applic topical ONCE PRN port 10/26/24 01/02/25 Rx topical cream access 30 days #30 grams ondansetron 8 mg disintegrating 8 mg PO Q8H PRN nausea and 10/26/24 01/02/25 Rx tablet vomiting #30 tabs prochlorperazine maleate 10 mg 10 mg PO Q6H PRN nausea and 10/26/24 01/02/25 Rx tablet vomiting #30 tabs budesonide-formoterol HFA 80 2 inh inhalation .x4 10/1801/02/25 History mcg-4.5 mcg/actuation aerosol inhaler melatonin 2.5 mg chewable tablet 2.5 mg PO QHS PRN sle ep 11/09/24 01/02/25 History buspirone 10 mg tablet 10 mg PO TID PRN anxiety 01/02/25 History hydrochlorothiazide 25 mg tablet 12.5 mg PO MOTUWETHFR SA 11/13/24 01/02/25 History mecobalamin (vitamin B12) 1,000 1,000 mcg PO QDAY 10/1801/02/25 History mcg chewable tablet pantoprazole 40 mg tablet,delayed 40 mg PO QDAY 01/02/25 History release docusate sodium 100 mg capsule 200 mg PO QDAY 11/17/24 01/02/25 History (Dulcolax Stool Softener (docusate)) ferrous sulfate 325 mg (65 mg 325 mg PO QDAY 11/17/24 01/02/25 History iron) tablet,delayed release osteo matrix PO DAILY 11/17/24 01/02/25 H istory trazodone 100 mg tablet 200 mg PO QHS 11/17/2401/02 History valacyclovir 500 mg tablet 500 mg PO QDAY PRN shingles 11/17/24 01/02/25 History oxycodone 10 mg tablet 20 mg PO BID PRN pain 01/02/25 History bisacodyl 5 mg tablet 5 mg PO DAILY 12/13/2401/02 History Have you fallen in the past year?: No Central Venous Access Central Venous Access: Yes Port/PICC: Port (right chest) CBC, CMP January 02, 2025 reviewed in EMR Exam Physical Exam Narrative ECOG 1, respiratory restriction Const alert, oriented x3 and no apparent distress General Appearance: cooperative and comfortable HEENT Face and Sinus: normal facial exam Mouth: oral and palatal mucosa normal Teeth and Gingiva: dentures and other Other Details: Top full dentures Eyes General Eye: normal appearance of both eyes Neck no JVD Lymph Lymphatic: no lymphadenopathy noted Chest Chest: vascular access Resp Auscultation: diminished lung sounds bilateral and diffuse Cardio regular rate and regular rhythm Jugular Venous Distention: Negative for JVD GI soft to palpation, non-tender and non-distended; Negative for hepatosplenomegaly Back/Spine no thoracic nor lumbar tenderness Extremity General Extremity: edema bilateral lower extremity Details: trace; Negative for clubbing or cyanosis Skin no rashes or lesions noted Neuro oriented x3, CN's II-XII intact bilaterally, moves all extremities and no focal motor deficits Coordination / Balance: etafeo-qp-qeld test normal Speech: speech normal Gait (Neuro): normal gait Psych mental status grossly normal Coding Level of Care Code Off vis,est,level 4 Exam Problem Focused Diagnoses Mediastinal lymphadenopathy R59.0 Assessment and Plan Assessment and Plan (1) Mediastinal lymphadenopathy: Status: Acute Plan 74-year-old female smoker till 2023, with stage IV small cell lung cancer of 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 Patient presented with progressively increasing dyspnea, and hoarseness of voice. She came to the emergency room September 13, 2024 where she had a CTA showed no evidence of PE but showed a left upper lobe pleural-based mass, left hilar/mediastinal mass most consistent with lymphadenopathy. There is a moderate pericardial effusion on imaging. JUDD showed no tamponade but the rightatrial mass. Further imaging with PET/CT confirmed metastatic disease to the mediastinal lymph nodes, AP window lymph node, right atrium, liver and left adrenal gland. Patient started on systemic chemotherapy?immune with a palliative intent plus orminus survival benefit with carboplatin, etoposide and durvalumab October 31, 2024. She has tolerated treatment with no grade 3 or 4 toxicities and subjectively is feeling better. Chronic comorbid conditions: COPD, DJD, dyslipidemia, hypertension, hypothyroidism on replacement. Plan: 1-continue combination systemic chemoimmunotherapy with carboplatin, etoposide and durvalumab 4-6 cycles to be followed with durvalumab maintenance. Continue to support with antiemetics, steroids and primary prophylaxis against febrile neutropenia with growth factor support. Patient was seen with her daughter, impression and plan discussed Alis Chance MD [facility], [facility] Divisions of Medical Oncology & Hematology Department of Internal Medicine [place] [address] This note was generated using a voice recognition system software. Although itwas reviewed by the author prior to finalization, it may still contain incorrectwords, spelling, and punctuation that were not noted when reviewing prior to saving. If a clinically significant typo or inaccurately typed phrase is noted, please notify the author. Clinical Quality Measures Falls Risk Screening/Assistive Devices Have you fallen in the past year?: No 01/02/25 1020 <Electronically signed by Alis brooke MD> Date _ Alis Chance MD Cosigner Signature: Date (if applicable) CC: ~ [facility] Work Phone: [phone]) 137-169705-09-2025 Hospital Discharge instructions Patient Education 11/24/2024 14:53:17 Fracture, Finger, Open Finger Fracture, Open You have a broken finger (fracture) with a nearby cut, puncture, or deep scrape. This causes local pain, swelling, and bruising. Because of the open injury, you are at risk for infection in the skin and bone. You will take antibiotics to lower the risk for infection. This injury usually takes about 4 weeks to heal. Finger injuries are often treated with a splint orcast, or by taping the injured finger to the next one (genesis taping). This protects the injured finger and holds the bone in position while it heals. More serious fractures may need surgery. If the fingernail has been severely injured, it will probably fall off in 1 to 2 weeks. A new fingernail will usually start to grow back within a month. Home care Follow these guidelines when caring for yourself at home: Keep your hand elevated to reduce pain and swelling. When sitting or lying down keep your arm abovethe level of your heart. You can do this by placing your arm on a pillow that rests on your chest or on a pillow at your side. This is most important during the first 2 days (48 hours) after the injury. Put an ice pack on the injured area. Do this for 20 minutes every 1 to 2 hours the first day for pain relief. You can make an ice pack by wrapping a plastic bag of ice cubes in a thin towel. As the ice melts, be careful that the cast or splint doesn t get wet. Continue using the ice pack 3 to 4 times a day until the pain and swelling go away. Keep the cast or splint completely dry at all times. Bathe with your cast or splint out of the water. Protect it with a large plastic bag, rubber-banded at the top end. If a fiberglass cast or splintgets wet, you can dry it with a chair inspector. You may use acetaminophen or ibuprofen to control pain, unless another pain medicine was prescribed. If you have chronic liver or kidney disease, talk with your healthcare provider before using thesemedicines. Also talk with your provider if you ve had a stomach ulcer or gastrointestinal bleeding. If genesis tape was applied and it becomes wet or dirty, change it. You may replace it with paper, plastic, or cloth tape. Cloth tape and paper tapes must be kept dry. Keep the genesis tape in place for at least 4 weeks. Take all antibiotics until you have finished them. Don t put creams or objects under the cast if you have itching. Follow-up care Follow up with your healthcare provider, or as advised. This is to make sure the bone is healing the way it should. X-rays may be taken. You will be told of any new findings that may affect your care. When to seek medical advice Call your healthcare provider right away if any of these occur: The cast or splint cracks The plaster cast or splint becomes wet or soft The fiberglass cast or splint stays wet for more than 24 hours Pain or swelling gets worse Tightness or pressure under the cast or splint gets worse Finger becomes cold, blue, numb, or tingly You can t move your finger Redness, warmth, swelling, drainage from the wound, or foul odor from a cast or splint Fever of 100.4 F (38 C) or higher, or as directed by your healthcare provider [phone] [employer]. [address] [place], [place] [id number]. All rights reserved. This information is not intended as a substitute for professional medical care. Always follow yourhealthcare professional's instructions. 11/24/2024 14:53:10 Laceration, Hand: All Closures Hand Laceration: All Closures A laceration is a cut through the skin. Deep cuts usually require stitches. Minor cuts may be closed with surgical tape or skin adhesive. X-rays may be done if something may have entered the skin through the cut, such as broken glass. You may also be given a tetanus shot if you are not up to date on this vaccination and the object thatcut you may carry tetanus. Home care Your healthcare provider may prescribe an antibiotic. This is to help prevent infection. Follow allinstructions for taking this medicine. Take the medicine every day until it is gone or you are toldto stop. You should not have any left over. The healthcare provider may prescribe medicines for pain. Follow instructions for taking them. Follow the healthcare provider s instructions on how to care for the cut. Keep the wound clean and dry. Don't get the wound wet until you are told it is OK to do so. If the bandage gets wet, remove it. Gently pat the wound dry with a clean cloth. Then put on a clean, dry bandage. To help prevent infection, wash your hands with soap and water before and after caring for the wound. Caring for stiches: Once you no longer need to keep the stitches dry, clean the wound daily. First,remove the bandage. Then wash the area gently with soap and warm water, or as directed by the healthcare provider. Use a wet cotton swab to loosen and remove any blood or crust that forms. After cleaning, apply a thin layer of antibiotic ointment if advised. Then put on a new bandage unless you aretold not to. Caring for skin glue: Don t put apply liquid, ointment, or cream on the wound while the glue is in place. Avoid activities that cause heavy sweating. Protect the wound from sunlight. Don't scratch, rub, or pick at the adhesive film. Don't place tape directly over the film. The glue should peel off within 5 to 10 days. Caring for surgical tape: Keep the area dry. If it gets wet, blot it dry with a clean towel. Surgical tape usually falls off within 7 to 10 days. If it has not fallen off after 10 days, you can take it off yourself. Put mineral oil or petroleum jelly on a cotton ball and gently rub the tape until it is removed. Once you can get the wound wet, you may shower as usual, but don't soak the wound in water. This means no tub baths or swimming. Even with proper treatment, a wound infection may sometimes occur. Check the wound daily for signs of infection listed below. Follow-up care Follow up with your healthcare provider, or as advised. If you have stitches, be sure to return as directed to have them removed. When to seek medical advice Call your healthcare provider right away if any of these occur: Wound bleeding not controlled by direct pressure Signs of infection, including increasing pain in the wound, increasing wound redness or swelling, or pus or bad odor coming from the wound Fever of 100.4 F (38. C) o higher, or as directed by your healthcare provider Stitches come apart or fall out or surgical tape falls off before 7 days Wound edges reopen Wound changes colors Numbness or weakness in the affected hand Decreased movement of the hand [id number] [employer]. [address] [place] [id number]. All rights reserved. This information is not intended as a substitute for professional medical care. Always follow yourhealthcare professional's instructions. Follow Up Care 11/24/2024 13:54:15 With:BOB POOL MD Address: [address] [facility] [place] [phone] When:2-4 days With:TU HECTOR DO Address: [address] [place] [address] Phys[place], [place] [id number]- [phone] When:2-4 days [facility] 05-09-2025 Emergency department Discharge summary Discharge Instructions Thank you for allowing [facility] to assist you with your healthcare needs. The following is importantdischarge information regarding your hospital visit. Diagnosis from Today's Visit Fracture of distal phalanx of left thumb Laceration of left thumb What to Do Next Instructions from Your Care Team No qualifying data available. Post Acute Orders No qualifying data available. You Need to Schedule the Following Appointments Follow Up with BOB POOL MD When:Within 2-4 days Where:[address] [facility] [address] [facility], [place] [address] [phone] Follow Up with TU HECTOR DO When:Within 2-4 days Where:[address], [place] [id number] [phone] Allergies Ceclor Hives Fosamax Swelling / lump finding, Muscle ache Ultram Itching erythromycin Stomach pain ezetimibe Cough, Myalgia, Blister morphine Vomiting penicillin Hives Medications Please ask your primary doctor or pharmacist before taking any other medication not listed, including over the counter drugs, herbal medications, vitamins and or supplements as they may interact withur home medications. What How Much When Why Instructions Last Dose New clindamycin (clindamycin 300 mg oral capsule) 1 cap by mouth Three (3) times a day Duration: 7 Days Printed Prescription Unchanged albuterol (albuterol 2.5 mg/ 3 mL (0.083%) inhalation solution) 3 Milliliter by inhalation Every 6 hours as needed for as needed for wheezing SOB (shortness of breath) COPD without exacerbation Unchanged albuterol (Ventolin HFA MDI (90 mcg/ inh) inhalation aerosol) 2 puff(s) by inhalation Four (4) times a day as needed for as needed for wheezing Cough Acute URI Duration: 30 Days Unchanged budesonide-formoterol (Symbicort 80 mcg-4.5 mcg/ inh Inhaler) 2 puff(s) by inhalation Two (2) times a day Unchanged busPIRone (busPIRone 10 mg oral tablet) 1 tab(s) by mouth Three (3) times a day as needed for as needed for anxiety Anxiety Unchanged cholecalciferol (Vitamin D3 25 mcg (1000 intl units) oral capsule) 1 cap by mouth Once a day Unchanged cyanocobalamin (Vitamin B12 50 mcg oral tablet) 1 tab(s) by mouth Once a day Unchanged ferrous sulfate (IRON (ferrous sulfate 325 mg) 65 mg oral tablet) 1 tab(s) by mouth Twice daily with meals Take with food. Unchanged hydroCHLOROthiazide (hydroCHLOROthiazide 25 mg oral tablet) 1 tab(s) by mouth Once a day HTN - Hypertension Unchanged loratadine (Claritin 10 mg oral tablet) 1 tab(s) by mouth Once a day Duration: 7 Days Unchanged Misc Medication (Mult. Vitamins by Henrique) Carotomax, OmegaGuard, Osteo Matrix, Sona-Palak Gold w/ Vit. K, Optiflora D1 Unchanged pantoprazole (pantoprazole 40 mg oral enteric coated tablet) 1 tab(s) by mouth Once a day GERD (gastroesophageal reflux disease) Acid reflux Unchanged traZODone (traZODone 100 mg oral tablet) 1.5 tab(s) by mouth Daily at bedtime Insomnia Duration: 90 Days Dose adjusted Unchanged valACYclovir (valACYclovir 500 mg oral tablet) 1 tab(s) by mouth Two (2) times a day Duration: 3 Days take 1 tablet by mouth twice a day for 3 days for OUTBREAKS DRINK PLENTY OF FLUIDS Unchanged zinc citrate (zinc citrate 50 mg oral capsule) Please take this list to your next doctor s visit. Bring all medications you take, including over the counter medications, herbals and other supplements with you to your doctor s visit. Patients and families are reminded to discard old lists and to update any records with all medication providers or retail pharmacies. Education Materials Finger Fracture, Open You have a broken finger (fracture) with a nearby cut, puncture, or deep scrape. This causes local pain, swelling, and bruising. Because of the open injury, you are at risk for infection in the skin and bone. You will take antibiotics to lower the risk for infection. This injury usually takes about 4 weeks to heal. Finger injuries are often treated with a splint orcast, or by taping the injured finger to the next one (genesis taping). This protects the injured finger and holds the bone in position while it heals. More serious fractures may need surgery. If the fingernail has been severely injured, it will probably fall off in 1 to 2 weeks. A new fingernail will usually start to grow back within a month. Home care Follow these guidelines when caring for yourself at home: Keep your hand elevated to reduce pain and swelling. When sitting or lying down keep your arm abovethe level of your heart. You can do this by placing your arm on a pillow that rests on your chest or on a pillow at your side. This is most important during the first 2 days (48 hours) after the injury. Put an ice pack on the injured area. Do this for 20 minutes every 1 to 2 hours the first day for pain relief. You can make an ice pack by wrapping a plastic bag of ice cubes in a thin towel. As the ice melts, be careful that the cast or splint doesn t get wet. Continue using the ice pack 3 to 4 times a day until the pain and swelling go away. Keep the cast or splint completely dry at all times. Bathe with your cast or splint out of the water. Protect it with a large plastic bag, rubber-banded at the top end. If a fiberglass cast or splintgets wet, you can dry it with a chair inspector. You may use acetaminophen or ibuprofen to control pain, unless another pain medicine was prescribed. If you have chronic liver or kidney disease, talk with your healthcare provider before using thesemedicines. Also talk with your provider if you ve had a stomach ulcer or gastrointestinal bleeding. If genesis tape was applied and it becomes wet or dirty, change it. You may replace it with paper, plastic, or cloth tape. Cloth tape and paper tapes must be kept dry. Keep the genesis tape in place for at least 4 weeks. Take all antibiotics until you have finished them. Don t put creams or objects under the cast if you have itching. Follow-up care Follow up with your healthcare provider, or as advised. This is to make sure the bone is healing the way it should. X-rays may be taken. You will be told of any new findings that may affect your care. When to seek medical advice Call your healthcare provider right away if any of these occur: The cast or splint cracks The plaster cast or splint becomes wet or soft The fiberglass cast or splint stays wet for more than 24 hours Pain or swelling gets worse Tightness or pressure under the cast or splint gets worse Finger becomes cold, blue, numb, or tingly You can t move your finger Redness, warmth, swelling, drainage from the wound, or foul odor from a cast or splint Fever of 100.4 F (38 C) or higher, or as directed by your healthcare provider [phone] [employer]. [address] [place] [address], [place] [address]. All rights reserved. This information is not intended as a substitute for professional medical care. Always follow yourhealthcare professional's instructions. Hand Laceration: All Closures A laceration is a cut through the skin. Deep cuts usually require stitches. Minor cuts may be closed with surgical tape or skin adhesive. X-rays may be done if something may have entered the skin through the cut, such as broken glass. You may also be given a tetanus shot if you are not up to date on this vaccination and the object thatcut you may carry tetanus. Home care Your healthcare provider may prescribe an antibiotic. This is to help prevent infection. Follow allinstructions for taking this medicine. Take the medicine every day until it is gone or you are toldto stop. You should not have any left over. The healthcare provider may prescribe medicines for pain. Follow instructions for taking them. Follow the healthcare provider s instructions on how to care for the cut. Keep the wound clean and dry. Don't get the wound wet until you are told it is OK to do so. If the bandage gets wet, remove it. Gently pat the wound dry with a clean cloth. Then put on a clean, dry bandage. To help prevent infection, wash your hands with soap and water before and after caring for the wound. Caring for stiches: Once you no longer need to keep the stitches dry, clean the wound daily. First,remove the bandage. Then wash the area gently with soap and warm water, or as directed by the healthcare provider. Use a wet cotton swab to loosen and remove any blood or crust that forms. After cleaning, apply a thin layer of antibiotic ointment if advised. Then put on a new bandage unless you aretold not to. Caring for skin glue: Don t put apply liquid, ointment, or cream on the wound while the glue is in place. Avoid activities that cause heavy sweating. Protect the wound from sunlight. Don't scratch, rub, or pick at the adhesive film. Don't place tape directly over the film. The glue should peel off within 5 to 10 days. Caring for surgical tape: Keep the area dry. If it gets wet, blot it dry with a clean towel. Surgical tape usually falls off within 7 to 10 days. If it has not fallen off after 10 days, you can take it off yourself. Put mineral oil or petroleum jelly on a cotton ball and gently rub the tape until it is removed. Once you can get the wound wet, you may shower as usual, but don't soak the wound in water. This means no tub baths or swimming. Even with proper treatment, a wound infection may sometimes occur. Check the wound daily for signs of infection listed below. Follow-up care Follow up with your healthcare provider, or as advised. If you have stitches, be sure to return as directed to have them removed. When to seek medical advice Call your healthcare provider right away if any of these occur: Wound bleeding not controlled by direct pressure Signs of infection, including increasing pain in the wound, increasing wound redness or swelling, or pus or bad odor coming from the wound Fever of 100.4 F (38. C) o higher, or as directed by your healthcare provider Stitches come apart or fall out or surgical tape falls off before 7 days Wound edges reopen Wound changes colors Numbness or weakness in the affected hand Decreased movement of the hand [id number] [employer]. [address] [place] [address]. All rights reserved. This information is not intended as a substitute for professional medical care. Always follow yourhealthcare professional's instructions. Additional Information VACCINATE! IT SAVES LIVES! Members of the community who have not yet received the COVID-19 vaccine and would like to receive it can visit one of [facility] vaccine clinics. There are many vaccine clinic locations within the [facility]. For locations and available times, please visit [email or web address] It is important to note that some COVID mobile vaccine clinics are held outdoors and may be canceled in rainy or stormy conditions. To learn more about pediatric vaccinations (ages 5-11), we invite you to visit the [facility] webpage. [email or web address] learn more about the COVID-19 vaccine, we invite you to visit the CDC website for a list of frequently asked questions. https://www.cdc.gov/coronavirus/2019-ncov/vaccines/faq.html [email or web address] Patient Portal Access Instructions: Stay connected with your healthcare team and access your personal medical information anytime with the [facility] Patient Portal. If you would like a full copy of your medical records please contact the [facility] Medical Records Department Wednesday through Wednesday between 8a.m. and 4:30p.m. Please follow the directions below to access the portal: 1.Access the email account you provided upon registration to the [facility].2.Look for an invitation email from [facility].3.Open the email and access the invitation link: Accept Invitation to [facility]4.Fill in the required abbasi to create your account. Sign into www.[employer] with your username and password that you created in the above steps to stay up to date. You can then view a summary of results, a summary of your visits, and the ability to download your summaries to your computer or send the information securely to a physician. Remember that your healthcare information is confidential, so carefully consider who you will allow to register on the [facility] Patient Portal for access to your information. You can also access the [facility] Patient Portal on the [employer]. Simply click on Health Records under [employer] and then click on the [employer] logo. HOW TO SAFELY DISPOSE OF PRESCRIPTION MEDICATIONS Please use one of the following methods to safely dispose of your unused medications. 1.Use a drug disposal kit: the drug disposal pouch allows you to safely discard your old and unuseddrugs. Ask your nurse to give you one when you are discharged.2.Visit a local take-back location: Many local pharmacies and police departments have programs that collect old and unwanted prescriptiondrugs. Call your local pharmacy or go to http://bit.[employer]/8Q4Ns4m to find one close to you.3.Make use of household items: Use cat litter or old coffee grounds to dispose medications if other options arenot available. Mix your drugs with these household products, seal them in an airtight container andthrow it into the garbage. Call [facility]: [phone] to be sure your drugs can be disposed of in this way. Some medicines may require a different approach.4.Never flush your medications down the toilet. IF YOU HAVE BEEN PRESCRIBED AN OPIOIDS FOR PAIN If you have been prescribed an opioid (such as hydrocodone, oxycodone or morphine), it is critical to understand the possible side effects and risks of opioid pain medications. Even when taken as directed, opioids can have several side effects including: Tolerance, meaning you might need to take more of a medication for the same pain relief. Nausea, vomiting and/or constipation. Sleepiness, dizziness, dry mouth, confusion, depression or itching. Physical dependence, meaning you have withdrawal symptoms when a medication is stopped ? this can develop within a few days. KNOW YOUR RESPONSIBILITIES It is important to know exactly how much and how often to take the opioid pain medications you are prescribed. Never take opioids in higher amounts or more often than prescribed. Do not combine opioids with alcohol or other drugs that cause drowsiness, such as benzodiazepines, also known as benzos,including diazepam and alprazolam, muscle relaxants or sleep aids. Never sell or share prescriptionopioids. This is illegal. Store opioids in a secure place and out of reach of others (including children, family, friends and visitors). The last page(s) of this document has been signed and retained as a CHART COPY Signatures Patient Education Materials Fracture, Finger, Open Laceration, Hand: All Closures Medication Leaflets My discharge plan and instructions have been reviewed and explained to me and ISYLVIA NANCY M understand my current condition and have read and understand these discharge instructions. I have received a written copy of the plan/instructions. If I have questions, I am aware that I should contact my doctor. 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 No other fracture or dislocation is seen. No radiopaque foreign body. Severe degenerative changes of the 1st carpal metacarpal joint and other degenerative changes in the 1st and 2nd digits. IMPRESSION: Comminuted intra-articular fracture of the 1st distal phalanx. Interpreted by: Adrián Grigsby MD Preliminary Report By: Adrián Grigsby MD Electronically signed By Adrián Grigsby MD Dictated Date: 11/24/2024 3:29:31 PM Prelim Date: 11/24/2024 3:30:21 PM Sign Date: 11/24/2024 3:30:21 PM Ordering Provider: WILBUR [facility]05-01-2025 [facility]04-17-2025 Telephone encounter Note* Telephone Encounter - Shante Kirk MA - 11/02/2024 12:40 PM EDT [id number] Miscellaneous Notes* Telephone Encounter - Shante Kirk MA - 11/02/2024 12:40 PM EDT Faxed office note to [facility] * Telephone Encounter - Rayne Melendrez APRN Jhonathan CUMMINS - 11/01/2024 5:02 PM EDT Phone call to patient Daughter, ( patient is not able to speak on the phone due to vocal cord paralysis and tumor compression ), 2 weeks ago, her HCTZ was stopped by [facility], due to dehydration and hypotension. She had her second chemo today, and weight was up 7 lbs from yesterday, and had increase edema in her feet. Daughter states she went home from treatment and took 12.5 mg of HCTZ at 3 pm, and is keeping her feet elevated. She has Chemo again tomorrow at 9:30 am , and goes back on Wednesday for injection. Ideally, daughter would like to establish with a senior software test engineer in [place]. Patient is monitoring her BP at home, and will call her daughter, ( who is at work now) if BP drops. She willcontact the patient relations coordinator to see if she can arrange Cardiology to see her tomorrow while at the infusion center. She will keep us updated. * Telephone Encounter - Shante Kikr MA - 11/01/2024 3:44 PM EDT Daughter called back she spoke to oncologist and oncologist is more comfortable if we deal with this. * Telephone Encounter - Lenore Ambrosio RN - 11/01/2024 1:17 PM EDT I spoke with daughter pt having increase BOWMAN/ up 7 #s/b/l lower extremity edema after having 2 chemo treatments. Daughter states chemo staff said to call senior software test engineer. She is not sure if oncologist or his office is aware. I asked her to check with them first regarding the symptoms she is having. The care will be directed by them. She will call back after she makes sure the oncologist is aware. * Telephone Encounter - Shante Kirk MA - 11/01/2024 11:13 AM EDT Daughter calling pt is new to chemo having second treatment today. She has gained 7# since yesterday. Chemo staff wanted pt to call senior software test engineer pt has edema in ankles. documented in this [place] [id number] Telephone encounter Note* Telephone Encounter - NEGIN Petty CNP - 11/01/2024 5:02 PM EDT Phone call to patient Daughter, ( patient is not able to speak on the phone due to vocal cord paralysis and tumor compression ), 2 weeks ago, her HCTZ was stopped by [facility], due to dehydration and hypotension. She had her second chemo today, and weight was up 7 lbs from yesterday, and had increase edema in her feet. Daughter states she went home from treatment and took 12.5 mg of HCTZ at 3 pm, and is keeping her feet elevated. She has Chemo again tomorrow at 9:30 am , and goes back on Wednesday for injection. Ideally, daughter would like to establish with a senior software test engineer in [place]. Patient is monitoring her BP at home, and will call her daughter, ( who is at work now) if BP drops. She willcontact the patient relations coordinator to see if she can arrange Cardiology to see her tomorrow while at the infusion center. She will keep us updated. [facility] Work Phone: [phone] Miscellaneous Notes* Telephone Encounter - NEGIN Petty CNP - 11/01/2024 5:02 PM EDT Phone call to patient Daughter, ( patient is not able to speak on the phone due to vocal cord paralysis and tumor compression ), 2 weeks ago, her HCTZ was stopped by [facility], due to dehydration and hypotension. She had her second chemo today, and weight was up 7 lbs from yesterday, and had increase edema in her feet. Daughter states she went home from treatment and took 12.5 mg of HCTZ at 3 pm, and is keeping her feet elevated. She has Chemo again tomorrow at 9:30 am , and goes back on Wednesday for injection. Ideally, daughter would like to establish with a senior software test engineer in [place]. Patient is monitoring her BP at home, and will call her daughter, ( who is at work now) if BP drops. She willcontact the patient relations coordinator to see if she can arrange Cardiology to see her tomorrow while at the infusion center. She will keep us updated. * Telephone Encounter - Shante Kirk MA - 11/01/2024 3:44 PM EDT Daughter called back she spoke to oncologist and oncologist is more comfortable if we deal with this. * Telephone Encounter - Lenore Ambrosio RN - 11/01/2024 1:17 PM EDT I spoke with daughter pt having increase BOWMAN/ up 7 #s/b/l lower extremity edema after having 2 chemo treatments. Daughter states chemo staff said to call senior software test engineer. She is not sure if oncologist or his office is aware. I asked her to check with them first regarding the symptoms she is having. The care will be directed by them. She will call back after she makes sure the oncologist is aware. * Telephone Encounter - Shante Kirk MA - 11/01/2024 11:13 AM EDT Daughter calling pt is new to chemo having second treatment today. She has gained 7# since yesterday. Chemo staff wanted pt to call senior software test engineer pt has edema in ankles. documented in this [facility]04-16-2025 Telephone encounter Note* Telephone Encounter - Shante Kirk MA - 11/01/2024 3:44 PM EDT Daughter called back she spoke to oncologist and oncologist is more comfortable if we deal with this. [id number] Telephone encounter Note* Telephone Encounter - Lenore Ambrosio RN - 11/01/2024 1:17 PM EDT I spoke with daughter pt having increase BOWMAN/ up 7 #s/b/l lower extremity edema after having 2 chemo treatments. Daughter states chemo staff said to call senior software test engineer. She is not sure if oncologist or his office is aware. I asked her to check with them first regarding the symptoms she is having. The care will be directed by them. She will call back after she makes sure the oncologist is aware. [id number] Telephone encounter Note* Telephone Encounter - Shante Kirk MA - 11/01/2024 11:13 AM EDT Daughter calling pt is new to chemo having second treatment today. She has gained 7# since yesterday. Chemo staff wanted pt to call senior software test engineer pt has edema in ankles. [id number] Telephone encounter Note* Telephone Encounter - Aixa Roche RCP - 10/27/2024 2:17 PM EDT Reviewed clinisync and confirmed that patient ws able to establish with [facility] on 10/26/24. Beginning treatment 10/31/24. [id number] Miscellaneous Notes* Telephone Encounter - Aixa Roche RCP - 10/27/2024 2:17 PM EDT Reviewed clinisync and confirmed that patient ws able to establish with [facility] on 10/26/24. Beginning treatment 10/31/24. * Telephone Encounter - Aixa Roche RCP - 10/24/2024 10:49 AM EDT Received call from Alee Pipe Welder at [facility]. Per Alee, they are aware patient now has oncology appt in [place], but they are tryoing to have her seen at [place] sooner. Right faxed MRI brain and PET reports to providers at [place] in case she returns to them for oncology care. Also requested images be pushed to provider. * Telephone Encounter - Alayna Kaplan - 10/24/2024 9:[address] Fortune discussed patient with Dr. Worrell. Expedited referral arranged, pt is scheduled to see Dr. Jerry on Wednesday10/27/24 at 0800. Pt and daughter are aware of appointment. * Telephone Encounter - Aixa Roche RCP - 10/19/2024 12:[address] Lacho Kamara placed the recommended referral to [facility] medical oncology. Navigator spoke directly with occupational health coordinator and medical oncology provider office and stressed urgency of appointment follow-up. sales promotion coordinator and medical oncology discussed directly with oncologist at [facility]. They are unable to offer Karina an appointment sooner than previously scheduled with her [place] oncology team. Navigator apologized to family and recommended they keep previously scheduled [place] oncology appointment. Patient will see Dr. Dunham 11/01/24 per daughter. Records have been sent to [place] and PET and MRI will also be sent when reports are final. Family has navigator contact info and will call if they need assistance. * Telephone Encounter - Aixa Roche RCP - 10/18/2024 11:[address] referral for medical oncology to [facility]. Navigator spoke with occupational health coordinator and medical oncology office. She will discuss with oncology providers tomorrow morning to stress the urgency of appointment and attempt to expedite appointment. If unable to get patient in sooner than [place], navigator will advise patient to keep previously scheduled oncology follow-up. Daughter notified. * Telephone Encounter - Aixa Roche RCP - 10/18/2024 8:33 AM EDT Navigator received callback from patient's daughter Diaz. Patient's daughter reports that since we are able to expedite MRI and PET scan, oncology appointment has been moved up to 10/31/2024, but this is just tentative appointment as her oncology provider [facility] is out of town and may not be back until 11/06/2024. Daughter would like Dr. Lacho Kamara to review and is willing to transfer care for oncology the [facility] if pulmonary provider feels sooner oncology appointment for small cell is needed. * Telephone Encounter - Aixa Roche RCP - 10/17/2024 2:10 PM EDT Navigator contacted patient's daughter by phone. They would like first available PET scan at any location. She is currently scheduled 10/30/24. Moved up PET scan appointment to Faxed records including path report, thoracentesis report, thoracic conference recommendations, CTSand pulmonary and cardiology consults to patient's regular oncologist, Dr. Dunham and sampler and test preparer Rhiannon Georges in [place]. Patient has medical oncology appointment 11/06/24 but will try to move appointment sooner after PET scan. Navigator will send PET and MRI reports to providers once final . documented in this [facility]04-10-2025 History of Present illness Narrative* Joselyn Tucker MD - 10/26/2024 10:20 AM EDT . ENDOCRINOLOGY [address] [facility] [address] Dept: [phone] Dept Visit type: New patient Reason for Visit: New Patient and Thyroid Problem (Thyroid nodule) Assessment and Plan 1. Multinodular goiter (nontoxic) 2. Stage 3a chronic kidney disease (HCC) No follow-ups on file. Discussed with patient Nl thyroid function Nl thyroid structure Interpretation of tft's Mng and manifestations Would monitor thyroid function per protocol for immunotherapy to receive for small cell cancer Do not suspect difficulty swallowing based on thyroid pathology given area that point highlights and size of thyroid on US See back in 6 mos Pmd and oncology monitoring renal function Subjective Thyroid Problem Patient reports no cold intolerance, fatigue, heat intolerance, palpitations or tremors. 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 HENT: Positive for trouble swallowing. Negative for hearing loss, tinnitus and voice change. Respiratory: Positive for shortness of breath. Negative for cough and wheezing. Cardiovascular: Negative for chest pain and palpitations. Gastrointestinal: Negative for nausea and vomiting. Endocrine: Negative for cold intolerance and heat intolerance. Genitourinary: Negative for dysuria and hematuria. Skin: Negative for rash. Neurological: Negative for tremors and headaches. Psychiatric/Behavioral: Positive for sleep disturbance. Allergies Allergen Reactions Alendronate Muscle ache, Swelling / lump finding Cefaclor Hives Erythromycin Nausea And Vomiting Erythromycin Base Nausea Only Famciclovir Hives Gabapentin Unknown Morphine Nausea And Vomiting Penicillins Hives Tramadol Hives, Itching and Nausea And Vomiting Hydrochlorothiazide-Triamterene Rash Current Outpatient Medications: albuterol (Ventolin HFA) 108 (90 Base) MCG/ACT inhaler, Inhale 2 puffs every 4 hours as needed for wheezing or shortness of breath., Disp: 8 g, Rfl: 11 budesonide-formoterol (Symbicort) 80-4.5 MCG/ACT inhaler, Inhale 2 puffs 2 times daily., Disp: 1 each, Rfl: 3 busPIRone (Buspar) 10 MG tablet, Take 10 mg by mouth 3 times daily as needed., Disp: , Rfl: cholecalciferol (Vitamin D-3) 25 MCG (1000 UT) capsule, Take 1,000 Units by mouth daily., Disp: , Rfl: loratadine (Claritin) 5 MG chewable tablet, Chew 5 mg daily., Disp: , Rfl: Melatonin 2.5 MG chewable tablet, Chew Daily as needed., Disp: , Rfl: Multiple Vitamin (multivitamin) capsule, Take 1 capsule by mouth daily., Disp: , Rfl: [place]-3 Fatty Acids (OMEGA 3 500 PO), Take by mouth daily., Disp: , Rfl: oxyCODONE-acetaminophen (Percocet) 5-325 MG tablet, Take 1 tablet by mouth every 6 hours as needed for severe pain (7-10) (small cell lung cancer with mets) for up to 7 days., Disp: 28 tablet, Rfl: 0 traZODone (Desyrel) 100 MG tablet, Take 100 mg by mouth Nightly., Disp: , Rfl: valACYclovir (Valtrex) 500 MG tablet, Take by mouth daily., Disp: , Rfl: Vitamin E 268 MG (400 UNIT) capsule, Take by mouth daily., Disp: , Rfl: ALPRAZolam (Xanax) 0.5 MG tablet, Take 1 tablet (0.5 mg) by mouth 1 time for 1 dose. 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 Spondylolisthesis, lumbar region Social History Tobacco Use Smoking status: Former Average packs/day: 1 pack/day for 51.9 years (51.9 ttl pk-yrs) Types: Cigarettes Start date: 1972 Passive exposure: Past Smokeless tobacco: Never Substance Use Topics Alcohol use: Not Currently Past Surgical History: Procedure Laterality Date APPENDECTOMY BLEPHAROPLASTY Bilateral BUNIONECTOMY Left CARPAL TUNNEL RELEASE Right HC ENDOBRONCHIAL ULTRASOUND EBUS (HISTORICAL) 10/09/2024 LUMBAR FUSION TOTAL KNEE ARTHROPLASTY Bilateral VAGINAL DELIVERY 1970 VAGINAL DELIVERY 1972 Family History Problem Relation Name Age of Onset Cancer Mother Cancer Father No Known Problems Sister No Known Problems Brother Heart disease Brother Objective BP 120/80 (BP Location: Right arm, Patient Position: Sitting, BP Cuff Size: Large adult) Pulse 98 Ht 5' 3 (1.6 m) Wt 167 lb (75.8 kg) BMI 29.58 kg/m Physical Exam Vitals reviewed. Constitutional: General: She is not in acute distress. Appearance: Normal appearance. She is not ill-appearing. Eyes: General: No scleral icterus. Right eye: No discharge. Left eye: No discharge. Neck: Comments: Thyroid 20 grams no nodules Cardiovascular: Rate and Rhythm: Normal rate and regular rhythm. Pulses: Normal pulses. Heart sounds: Normal heart sounds. No murmur heard. No friction rub. Pulmonary: Effort: Pulmonary effort is normal. No respiratory distress. Breath sounds: Normal breath sounds. No stridor. No wheezing or rhonchi. Musculoskeletal: Cervical back: Normal range of motion and neck supple. No rigidity or tenderness. Skin: General: Skin is warm and dry. Coloration: Skin is not jaundiced or pale. Neurological: General: No focal deficit present. Mental Status: She is alert and oriented to person, place, and time. Cranial Nerves: No cranial nerve deficit. Sensory: No sensory deficit. Psychiatric: Mood and Affect: Mood normal. Behavior: Behavior normal. Thought Content: Thought content normal. Judgment: Judgment normal. Data Reviewed and Summarized Labs: No results found for: TSH, T3, T4, TRAB Auto WBC Date Value Ref Range Status 10/06/2024 3.5 (L) 3.6 - 10.7 10*3/uL Final Hemoglobin Date Value Ref Range Status 10/06/2024 11.0 (L) 11.7 - 16.0 g/dL Final Hematocrit Date Value Ref Range Status 10/06/2024 34.4 (L) 35.0 - 47.0 % Final Platelets Date Value Ref Range Status 10/06/2024 226 140 - 440 10*3/uL Final MCV Date Value Ref Range Status 10/06/2024 80.9 77.0 - 99.0 fL Final SODIUM Date Value Ref Range Status 10/06/2024 141 136 - 145 mmol/L Final POTASSIUM Date Value Ref Range Status 10/06/2024 3.3 (L) 3.5 - 5.1 mmol/L Final Comment: Plasma potassium values may be up to 0.5 mmol/L lower than serum values. CHLORIDE Date Value Ref Range Status 10/06/2024 106 98 - 107 mmol/L Final CARBON DIOXIDE Date Value Ref Range Status 10/06/2024 27 23 - 31 mmol/L Final UREA NITROGEN Date Value Ref Range Status 10/06/2024 8 (L) 9 - 23 mg/dL Final CREATININE Date Value Ref Range Status 10/06/2024 0.83 0.57 - 1.11 mg/dL Final GLUCOSE Date Value Ref Range Status 10/06/2024 92 82 - 115 mg/dL Final CALCIUM Date Value Ref Range Status 10/06/2024 9.0 8.8 - 10.0 mg/dL Final MAGNESIUM Date Value Ref Range Status 10/06/2024 1.9 1.6 - 2.6 mg/dL Final AST (SGOT) Date Value Ref Range Status 10/06/2024 17 <34 U/L Final ALT Date Value Ref Range Status 10/06/2024 9 <30 U/L Final TOTAL PROTEIN Date Value Ref Range Status 10/06/2024 6.2 (L) 6.4 - 8.3 g/dL Final BILIRUBIN, TOTAL Date Value Ref Range Status 10/06/2024 0.3 <1.2 mg/dL Final ALKALINE PHOSPHATASE Date Value Ref Range Status 10/06/2024 45 40 - 150 U/L Final No results found for: CHOL, TRIG, HDL, VITD25, HGBA1C Imaging/Testing: On this date, 10/26/2024 I have spent 60 minutes reviewing previous notes, test results and face to face with the patient discussing the diagnosis and importance of compliance with the treatment plan as well as documenting on the day of the visit. Joselyn Tucker MD documented in this [address]10-2025 Evaluation note* Diagnosis Multinodular goiter (nontoxic)- Primary Nontoxic multinodular goiter Stage 3a chronic kidney disease (HCC) documented in this encounter [place] [id number] Telephone encounter Note* Telephone Encounter - NEGIN Johnson CNP - 10/24/2024 11:26 AM EDT Case reviewed - advanced small cell lung cancer *The patient's OARRS report was obtained and reviewed.* [id number] Miscellaneous Notes* Telephone Encounter - NEGIN Johnson CNP - 10/24/2024 11:26 AM EDT Case reviewed - advanced small cell lung cancer *The patient's OARRS report was obtained and reviewed.* * Telephone Encounter - Alayna Kaplan - 10/24/2024 11:[address] Fortune, pt needs a prescription sent for percocet 5/325mg, 1 tab Q6 hours PRN. documented in this [address]08-2025 Telephone encounter Note* Telephone Encounter - Alayna Kaplan - 10/24/2024 11:[address] Fortune, pt needs a prescription sent for percocet 5/325mg, 1 tab Q6 hours PRN. [place] [id number] Telephone encounter Note* Telephone Encounter - Aixa Roche RCP - 10/24/2024 10:49 AM EDT Received call from Alee Pipe Welder at [facility]. Per Alee, they are aware patient now has oncology appt in [place], but they are tryoing to have her seen at [place] sooner. Right faxed MRI brain and PET reports to providers at [place] in case she returns to them for oncology care. Also requested images be pushed to provider. [place] [id number] Miscellaneous Notes* Telephone Encounter - Aixa Roche RCP - 10/24/2024 10:49 AM EDT Received call from Alee Pipe Welder at [facility]. Per Alee, they are aware patient now has oncology appt in [place], but they are tryoing to have her seen at [place] sooner. Right faxed MRI brain and PET reports to providers at [place] in case she returns to them for oncology care. Also requested images be pushed to provider. * Telephone Encounter - Alayna Kaplan - 10/24/2024 9:[address] Fortune discussed patient with Dr. Worrell. Expedited referral arranged, pt is scheduled to see Dr. Jerry on Wednesday10/27/24 at 0800. Pt and daughter are aware of appointment. * Telephone Encounter - Aixa Roche RCP - 10/19/2024 12:[address] Lacho Kamara placed the recommended referral to [facility] medical oncology. Navigator spoke directly with occupational health coordinator and medical oncology provider office and stressed urgency of appointment follow-up. sales promotion coordinator and medical oncology discussed directly with oncologist at [facility]. They are unable to offer Karina an appointment sooner than previously scheduled with her [place] oncology team. Navigator apologized to family and recommended they keep previously scheduled [place] oncology appointment. Patient will see Dr. Dunham 11/01/24 per daughter. Records have been sent to [place] and PET and MRI will also be sent when reports are final. Family has navigator contact info and will call if they need assistance. * Telephone Encounter - Aixa Roche RCP - 10/18/2024 11:[address] referral for medical oncology to [facility]. Navigator spoke with occupational health coordinator and medical oncology office. She will discuss with oncology providers tomorrow morning to stress the urgency of appointment and attempt to expedite appointment. If unable to get patient in sooner than [place], navigator will advise patient to keep previously scheduled oncology follow-up. Daughter notified. * Telephone Encounter - Aixa Roceh RCP - 10/18/2024 8:33 AM EDT Navigator received callback from patient's daughter Diaz. Patient's daughter reports that since we are able to expedite MRI and PET scan, oncology appointment has been moved up to 10/31/2024, but this is just tentative appointment as [place] and may not be back until 11/06/2024. Daughter would like Dr. Lacho Kamara to review and is willing to transfer care for oncology the [facility] if pulmonary provider feels sooner oncology appointment for small cell is needed. * Telephone Encounter - Aixa Roche RCP - 10/17/2024 2:10 PM EDT Navigator contacted patient's daughter by phone. They would like first available PET scan at any location. She is currently scheduled 4/14/25. Moved up PET scan appointment to Faxed records including path report, thoracentesis report, thoracic conference recommendations, CTSand pulmonary and cardiology consults to patient's regular oncologist, Dr. Dunham and sampler and test preparer Rhiannon Georges in [place]. Patient has medical oncology appointment 11/06/24 but will try to move appointment sooner after PET scan. Navigator will send PET and MRI reports to providers once final . documented in this [facility]04-08-2025 History of Present illness Narrative* iSlvio Fortune MD - 10/24/2024 10:43 AM EDT OARRS reviewed documented in this [place] [address]-08-2025 NoteDrJosh Fortune discussed patient with Dr. Worrell. Expedited referral arranged, pt is scheduled to see Dr. Jerry on Wednesday10/27/24 at 0800. Pt and daughter are aware of appointment.[facility]04-08-2025 Telephone encounter Note * Telephone Encounter - Alayna Kaplan - 10/24/2024 9:[address] Fortune discussed patient with Dr. Worrell. Expedited referral arranged, pt is scheduled to see Dr. Jerry on Wednesday10/27/24 at 0800. Pt and daughter are aware of appointment. [place] [id number] History of Present illness Narrative* Silvio Fortune MD - 10/24/2024 9:30 AM EDT Images from the original note were not included. [facility] [address] [facility] [address] [address] Dept: [phone] Dept Loc: [phone] Patient was identified and seen today via Telehealth by agreement and consent. I used the followingTelehealth technology: Audio capability only. Total length of call 16 minutes. The patient was offered and advised video for a more comprehensive evaluation, but the patient declined or was unable touse video. Patient location: Patient Location: Home. This patient encounter is appropriate and reasonable under the circumstances: too sick to leave home . The patient has been advised of the potential risks and limitations of this mode of treatment (including but not limited to the absence of in-person examination) and has agreed to be treated in a remote fashion in spite of them. Any and allof the patient's/patient's family's questions on this issue have been answered and I have made no promises or guarantees to the patient. The patient has also been advised to contact this office for worsening conditions or problems, and seek emergency medical treatment and/or call 911 if the patientdeems either necessary. The patient stated that they are currently in the [facility]. If the patient is a minor, permission has been obtained by the parent or guardian for the patient to receive medical care at this visit. Visit type: Established Reason for Visit: Widespread small cell lung cancer with involvement of the liver, adrenal gland, right atrium of the heart, and left hilum. 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 She has obstruction of the left lung. She requires an immediate oncology assessment. We will refer to our oncology colleagues for urgent evaluation. She also requires a refill on Percocet for pain control. I have discussed with Dr Worrell, who will expedite an office consultation. There is no need for surgical intervention at this time. History of Present Illness Karina Fernando is a 73 y.o. female known to Dr. Fortune for left hilar mass, involvement of the AP window, a pleural-based lesion on the left lung, and a small right atrial mass of uncertain etiology. Per note, pt had presented to [place] ED in August 2023 for dyspnea. CTA chest showed left hilar mass, left upper lobe pleural-based mass and large prevascular lymph node concerning for malignancy.Also showed a moderate pericardial effusion and large hiatal hernia. Pt was treated for a sinus infe ction, given Doxycycline and steroids, and discharged. Pt was referred to Oncology and was evaluated on 09/18/[address] guided biopsy, PET scan, and MRI brain. PCP ordered a thyroidultrasound which was completed on 09/19/24 and demonstrated thyromegaly and multinodular goiter. PCP also ordered an echocardiogram which was completed on 09/25/24 and demonstrated a 2.0 cm x 1.9 cm spherical mass on the right side of the interatrial septum, a small pericardial effusion with RA collapse. Dr. Fortune Note 10/03/24 Assessment and plan This 73-year-old patient with standing COPD was found to have a left hilar mass, involvement of theAP window, and a pleural-based lesion on the left lung that appears smooth. This is concerning for malignancy. I would recommended EBUS/ENB to evaluate the left hilar adenopathy. A PET scan will be required for further staging. An MRI of the brain will be required for staging purposes. Further recommendations will follow once this testing has been completed. We will review the echocardiogram to further evaluate the right atrial mass. At the present time, this is likely unrelated tothis is but shows areas that may be consistent with malignancy. Patient was hospitalized at [facility] on 10/05/24 for shortness of breath, then transferred to [facility] for ongoing care. An US guided thoracentesis was ordered, but pleural effusion was too small for drainage. Patient underwent EBUS/ENB on 10/09/24, showing concern for right endobronchial lesion, biopsy negative for malignancy. Lymph nodes 11L, 7 and BAL positive for small cell carcinoma. Lymph nodes 4R and11R negative for malignancy. Sputum culture with stenotrophomonas, pt was treated with 7-day courseof Levaquin. Patient was presented at [facility] on 10/17/24 with recommendation for med/onc eval, patient chose to follow with her oncologist Dr. Chance in [place]. MRI brain on 10/17/24 was normal. PET scan on 10/20/24 showed large, intensely FDG avid mass centered within the left pulmonary hilum, a second FDG avid mass within the left suprahilar region which extends into the aorticopulmonary window, intense FDG uptake within the right atrium, intense FDG accumulation within the right hepatic lobe and left adrenal gland, small focus of intense FDG accumulation within the right thyroid lobe, and asymmetric increased FDG accumulation within the right vocal cord relative to the left is favored to represent left vocal cord paralysis. Of note, patient also completed a thyroid biopsy at [place] and pathologyis still pending/unavailable. Pt is a former smoker. Pt is here now to discuss results. 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 2.0cm x 1.9cm spherical mass Spondylolisthesis, lumbar region Past Surgical History Past Surgical History: Procedure Laterality Date APPENDECTOMY BLEPHAROPLASTY Bilateral BUNIONECTOMY Left CARPAL TUNNEL RELEASE Right HC ENDOBRONCHIAL ULTRASOUND EBUS (HISTORICAL) 10/09/2024 LUMBAR FUSION TOTAL KNEE ARTHROPLASTY Bilateral VAGINAL DELIVERY 1970 VAGINAL DELIVERY 1972 Family History Family History Problem Relation Name Age of Onset Cancer Mother Cancer Father No Known Problems Sister No Known Problems Brother Heart disease Brother Social History Social History Tobacco Use Smoking status: Former Average packs/day: 1 pack/day for 51.9 years (51.9 ttl pk-yrs) Types: Cigarettes Start date: 1972 Passive exposure: Past Smokeless tobacco: Never Vaping Use Vaping status: Never Used Substance Use Topics Alcohol use: Not Currently Drug use: Never Comment: caffeine: 2 cups of coffee per day, 2 small cans of diet soda Allergies Allergies Allergen Reactions Alendronate Muscle ache, Swelling / lump finding Cefaclor Hives Erythromycin Nausea And Vomiting Erythromycin Base Nausea Only Famciclovir Hives Gabapentin Unknown Morphine Nausea And Vomiting Penicillins Hives Tramadol Hives, Itching and Nausea And Vomiting Hydrochlorothiazide W-Triamterene Rash Medications Current Outpatient Medications: albuterol (Ventolin HFA) 108 (90 Base) MCG/ACT inhaler, Inhale 2 puffs every 4 hours as needed for wheezing or shortness of breath., Disp: 8 g, Rfl: 11 ALPRAZolam (Xanax) 0.5 MG tablet, Take 1 tablet (0.5 mg) by mouth 1 time for 1 dose. Take 30 minutes prior to PET scan, Disp: 1 tablet, Rfl: 0 budesonide-formoterol (Symbicort) 80-4.5 MCG/ACT inhaler, Inhale 2 puffs 2 times daily., Disp: 1 each, Rfl: 3 busPIRone (Buspar) 10 MG tablet, Take 10 mg by mouth 3 times daily as needed., Disp: , Rfl: cholecalciferol (Vitamin D-3) 25 MCG (1000 UT) capsule, Take 1,000 Units by mouth daily., Disp: , Rfl: ipratropium-albuterol (Duo-Neb) 0.5-2.5 mg/3 mL nebulizer solution, Take 3 mL by nebulization every6 hours., Disp: , Rfl: levoFLOXacin (Levaquin) 750 MG tablet, Take 1 tablet (750 mg) by mouth daily for 7 days., Disp: 7 tablet, Rfl: 0 loratadine (Claritin) 5 MG chewable tablet, Chew 5 mg daily., Disp: , Rfl: Melatonin 2.5 MG chewable tablet, Chew Daily as needed., Disp: , Rfl: Multiple Vitamin (multivitamin) capsule, Take 1 capsule by mouth daily., Disp: , Rfl: [place]-3 Fatty Acids (OMEGA 3 500 PO), Take by mouth daily., Disp: , Rfl: traZODone (Desyrel) 100 MG tablet, Take 100 mg by mouth Nightly., Disp: , Rfl: valACYclovir (Valtrex) 500 MG tablet, Take by mouth daily., Disp: , Rfl: Vitamin E 268 MG (400 UNIT) capsule, Take by mouth daily., Disp: , Rfl: Review of Systems Review of Systems Physical Exam Virtual visit Labs Auto WBC Date/Time Value Ref Range Status 10/06/2024 04:39 AM 3.5 (L) 3.6 - 10.7 10*3/uL Final Hemoglobin Date/Time Value Ref Range Status 10/06/2024 04:39 AM 11.0 (L) 11.7 - 16.0 g/dL Final Platelets Date/Time Value Ref Range Status 10/06/2024 04:39 AM 226 140 - 440 10*3/uL Final SODIUM Date/Time Value Ref Range Status 10/06/2024 04:39 AM 141 136 - 145 mmol/L Final POTASSIUM Date/Time Value Ref Range Status 10/06/2024 04:39 AM 3.3 (L) 3.5 - 5.1 mmol/L Final Comment: Plasma potassium values may be up to 0.5 mmol/L lower than serum values. CREATININE Date/Time Value Ref Range Status 10/06/2024 04:39 AM 0.83 0.57 - 1.11 mg/dL Final Imaging PET/CT 10/20/24 NECK AND CHEST: There is intense (maximal SUV 13) FDG uptake within a poorly defined mass within the left pulmonaryhilum extending into the central aspect of the left lower lobe. Dense consolidation is present within the left lower lobe peripheral to this mass. The area of abnormal FDG accumulation measures approximately 7.5 cm in greatest diameter. There is a second area of intense FDG accumulation within the left suprahilar region extending into the aorticopulmonary window, also consistent with malignancy (maximal SUV 11). An intensely FDG avid pleural-based nodules present within the posterolateral aspect of the left upper hemithorax, measuring up to 1.9 cm. Maximal SUV is 6.3. On the low-dose CT images, a large left pleural effusion is present. There is a rounded area of intense FDG accumulation (maximal SUV 14). Within the expected location of the right atrium, measuring approximately 2.5 cm in diameter on the FDG PET images. There is intense (maximal SUV 15) FDG uptake within the hypodense nodule within the right thyroid lobe measuring approximately 1.5 cm in diameter on the low- dose CT images. Asymmetric increased FDG accumulation within the right vocal cord relative to the left may reflect left vocal cord paralysis given the intensely FDG avid mass extending into the aorticopulmonary window detailed above. ABDOMEN AND PELVIS: There is intense (maximal SUV 11) FDG uptake within the hypodense mass within the right hepatic lobe laterally measuring up to 3.5 cm on the low-dose CT images, consistent with hepatic metastatic disease. There is intense (maximal SUV 10) FDG accumulation within the 1.8 cm left adrenal nodule. MUSCULOSKELETAL: Unremarkable. No evidence of osseous metastatic disease. IMPRESSION: Large, intensely FDG avid mass centered within the left pulmonary hilum extending into the left lower lobe centrally is consistent with the patient's known malignancy. There is a second FDG avid masswithin the left suprahilar region which extends into the aorticopulmonary window, also consistent with malignancy. Intense FDG uptake within the right atrium is highly suspicious for a right atrial metastasis. Correlation with echocardiogram is recommended. Intense FDG accumulation within the masses within the right hepatic lobe and left adrenal gland areconsistent with hepatic and adrenal metastases. Small focus of intense FDG accumulation within the right thyroid lobe could reflect metastasis, however primary thyroid carcinoma could also have a similar appearance. Correlation with thyroid ultrasound and/or biopsy is recommended. Asymmetric increased FDG accumulation within the right vocal cord relative to the left is favored to represent left vocal cord paralysis given the presence of a mediastinal mass detailed above. MRI Brain 10/17/24 FINDINGS: Acute findings: No recent infarct, intracranial hemorrhage, or extra-axial fluid collection. Mass: None. No abnormal brain parenchymal or leptomeningeal enhancement. Parenchyma/White Matter: Normal morphology and signal intensity. Ventricles and sulci: Normal caliber of the ventricles and sulci. Skull base: Normal size and morphology of the pituitary gland. No suprasellar mass. Normal positionof the cerebellar tonsils. Vessels: The major intracranial flow voids are preserved. Extracranial structures: Normal orbits. No extracranial soft tissue abnormalities. Sinuses/mastoids: Clear Bones: No pathologic marrow infiltration. IMPRESSION: Normal MRI of the brain. Pathology 10/09/24 Final Diagnosis LUNG, RIGHT LOWER LOBE, BIOPSY: - LUNG PARENCHYMA WITH HYALINIZED/ISCHEMIC CHANGE. - NEGATIVE FOR MALIGNANCY IN SUBMITTED TISSUE. Please see associated cytology specimen (FS [id number]). Cytology 10/09/24 Final Diagnosis A - Mediastinal Lymph Node Station 11R - Transbronchial Fine Needle Aspirate: NO MALIGNANT CELLS IDENTIFIED. Adequate lymph node sample. B - Mediastinal Lymph Node Station 4R - Transbronchial Fine Needle Aspirate: NO MALIGNANT CELLS IDENTIFIED. Adequate lymph node sample. C - Mediastinal Lymph Node Station 4L - Transbronchial Fine Needle Aspirate: NONDIAGNOSTIC SPECIMEN: INSUFFICIENT CELLULARITY. Specimen consists almost entirely of peripheral blood elements. Insufficient lymph node sample. D - Mediastinal Lymph Node Station 7 - Transbronchial Fine Needle Aspirate: POSITIVE FOR MALIGNANT CELLS. CYTOLOGIC FEATURES CONSISTENT WITH SMALL CELL CARCINOMA. The malignant cells stain positive for synaptophysin and TTF-1, with a Ki67 proliferative index of at least 70%. CD45 highlights background lymphocytes and p40 and chromogranin stains are negative. This staining pattern is most consistent with small cell carcinoma. E - Mediastinal Lymph Node Station 11L - Transbronchial Fine Needle Aspirate: POSITIVE FOR MALIGNANT CELLS. CYTOLOGIC FEATURES CONSISTENT WITH SMALL CELL CARCINOMA. F - Bronchial, Right Lower Lobe - Bronchial Brushing, Cytology: NO MALIGNANT CELLS IDENTIFIED. Adequate cellular material including numerous well preserved respiratory epithelial cells and macrophages. G - Bronchoalveolar, Left Upper Lobe - Bronchoalveolar Lavage, Cytology: POSITIVE FOR MALIGNANT CELLS. NO SIGNIFICANT MICROORGANISMS OR VIRAL CELLULAR CHANGES IDENTIFIED. TTE 09/25/24 Summary: 1. Left ventricle: The cavity size is normal. Wall thickness is mildly increased. Systolic functionis normal. The estimated ejection fraction is 60-65%. Wall motion is normal; there are no regional wall motion abnormalities. Normal diastolic function. 2. Ventricular septum: Thickness is mildly increased. Septal motion is dyssynergic. 3. Right ventricle: The RV systolic pressure by Doppler is 35 mm Hg. 4. Right atrium: There is a 2.0 cm (L) x 1.9 cm (W), spherical mass on the right side of the interatrial septum. Differential include thrombus. pt declined DEFINITY. The estimated right atrial pressure is 3 mm Hg. 5. Pericardium, extracardiac: A small pericardial effusion is identified. There is moderate RA collapse for less than 50% of the cardiac cycle. Recommendations: 1. RA Mass / thrombus attached to interatrial septum. Small pericardial effusion with RA collapse (<1/3rd of cardiac cycle). no conclusive evidence of tamponade. Presence of pericardial effusion and RA location of mass are concerning for malignant etiology. Recommend further evaluation with JUDD and or CMR. 2. While no clear echo features of cardiac tamponade, corelate clinically as there is brief atrial collapse. Left ventricle: The cavity size is normal. Wall thickness is mildly increased. Systolic function isnormal. The estimated ejection fraction is 60-65%. Wall motion is normal; there are no regional wall motion abnormalities. The wall mass is 129 g. The wall mass index is 71 g/m . Normal diastolic function. Ventricular septum: Thickness is mildly increased. Septal motion is dyssynergic. Left atrium: The atrium is normal in size. The volume index by biplane method is 11 ml/m . Right ventricle: The cavity size is normal. Systolic function is normal. The RV systolic pressure by Doppler is 35 mm Hg. Right atrium: The atrium is normal in size. There is a 2.0 cm (L) x 1.9 cm (W), spherical mass on the right side of the interatrial septum. Differential include thrombus. pt declined DEFINITY. The estimated right atrialpressure is 3 mm Hg. Mitral valve: The pressure half-time is 66 ms. The peak E/A ratio is 0.59. The valve area (LVOT continuity) is 2.4 cm . Doppler: There is no evidence for stenosis. There is no significant regurgitation. The mean diastolic gradient is 4 mm Hg. The valve area by pressure half-time is 3.3 cm . Aortic valve: The valve is trileaflet. The peak systolic velocity is 1.5 m/sec. The systolic velocity-time integral is 22.1 cm. The mean systolic gradient is 5 mm Hg. The LVOT to aortic valve VTI ratio is 0.79. The valve area by VTI is 2.5 cm . The valve area by peak velocity is 2.5 cm . Doppler: There is no stenosis. There is no significant regurgitation. Tricuspid valve: The regurgitant peak velocity is 2.8 m/sec. Doppler: There is no evidence for stenosis. There is mild regurgitation. Pulmonic valve: The peak systolic velocity is 1.06 m/sec. Doppler: There is no significant regurgitation. Aorta: Aortic root: The aortic root is normal. Systemic veins: Inferior vena cava: The IVC is normal-sized. Respirophasic diameter changes are in the normal range(> 50%). Pericardium: A small pericardial effusion is identified. Doppler: There is moderate RA collapse forless than 50% of the cardiac cycle. Atrial septum: Not well visualized. Thyroid US 09/19/24 FINDINGS: Size right thyroid lobe: 6.2 x 2.8 x 2.7 cm Size left thyroid lobe: 4.7 x 2.2 x 2.1 cm Size isthmus: 0.9 cm Texture: Heterogeneous Estimated total number of nodules greater than or equal to 1 cm: 6-10 Nodule#: # 1: Maximum size: 1.6 cm . All dimensions: 1.4 x 1.6 x 1.1 cm Location: Right Lower Composition: solid or almost completely solid: 2 points Echogenicity: hypoechoic: 2 points Shape: wider than tall: 0 points Margins: lobulated/irregular: 2 points Echogenic foci: none: 0 points ACR Total Points: 6; ACR TI-RADS risk category: TR4 - moderately suspicious nodule. Remainder of the enlarged thyroid gland demonstrates numerous adjacent spongiform lesions. IMPRESSION: Thyromegaly and multinodular goiter. 1. Nodule 1: ACR TI-RADS 2017 Category 4. Recommend: Ultrasound-guided fine needle aspiration CTA Chest 09/13/24 Patient Care Team: PCP: Tu Hector DO Hematology/Oncology: Alis Chance MD Pulmonology: Rachel Johnson DO Pulmonary Navigator: Aixa Rohce RCP Disclaimer INFORMED CONSENT:The nature and purpose of the proposed treatment or procedure have been discussed.The risks and benefits of the proposed treatment or procedures have been reviewed. Alternatives have been reviewed in addition to the risks and benefits of not receiving treatments or undergoing procedures. Pursuant to this discussion, the patient agrees to undergo the proposed treatment or procedure. Captured images seen in this note from are not a substitute for a comprehensive interpretation of the entire data set as reflected by the interpreting physician with regard to radiology, echocardiography, and other diagnostic images. This note may have been dictated using [employer] Practice Edition 2.6 and/or [employer] Voice Recognition Feature. The document was proofread, however unrecognized voice recognition mental health program specialist errors may be present. documented in this [facility]04-05-2025 Discharge summary [facility] Medical Records Department [address] [place] [address] Emergency Department Summary 10/21/24 MR#: [id number] Acct: [id number] Name: KARINA FERNANDO Rep #:[id number] : 1950 73 From: Tay Dumont MD PCP: Dr. Tu Hector, Status:REG ER Location: ED HPI History of Present Illness Chief Complaint: Shortness of Breath Narrative Narrative: 73-year-old female, past medical history of small cell lung carcinoma, had a recent PET scan, presents with low blood pressure today with feelings of lightheadedness and increased difficulty breathing. She presents with her daughter, states that she woke up this morning and she had more hoarse voice andlaryngitis. She notes that her blood pressure was low. Initially it was only 90 systolic. Throughout the day, it has been as high as 110, and even 100 systolic. She became more short of breath today. She had a recent admission and transfer to [facility] and her daughter states that when shewas released she was placed on as needed oxygen because she was hypoxic and wears 2 to 3 L as needed. Patient quit smoking last year. She was concerned more abouther blood pressure being low today. No recent fevers or chills, no cough that is new. She does have history of hypertension and is on blood pressure medication according to her daughter. [facility] Medical History COPD (chronic obstructive pulmonary disease) Home Medications ?Medication ?Instructions ?Recorded ?Last Taken ?Type albuterol sulfate 90 mcg/actuation 1 - 2 puff inhalati on Q4H PRN PRN 08/24/19 Unknown History aerosol inhaler Sob &/Or Wheezing buspirone 10 mg tablet 10 mg PO TID 08/24/19 Unknow n History loratadine 10 mg tablet 10 mg PO DAILY 08/24/19 Unkn own History budesonide-formoterol HFA 80 1 inh inhalation .x4 08/20 01/10 Unknown History mcg-4.5 mcg/actuation aerosol inhaler hydrochlorothiazide 25 mg tablet 25 mg PO DAILY Unknown History oxycodone-acetaminophen 5 mg-325 1 tab PO TID PRN PRN pain 09/13/24 Unknown History mg tablet trazodone 100 mg tablet 100 mg PO QHS 09/13/24 Unkno wn History cholecalciferol (vitamin D3) 25 25 mcg PO QDAY 5 Unknown History mcg (1,000 unit) capsule multivitamin 1 tab PO QAM 09/18/24 Unknow n History omega-3 fatty acids 1,000 mg 1,000 mg PO QDAY 09/18/24 Unknown History capsule albuterol sulfate 2.5 mg/3 mL 2.5 mg inhalation PRN KS N 09/22/24 Unknown History (0.083 %) solution for nebulization shortness of breat h or wheezing cetirizine 10 mg tablet (24Hour 10 mg PO DAILY 5 Unknown History Allergy) gabapentin 300 mg capsule 300 mg PO TID 10/05/24 Unkno wn History melatonin 2.5 mg chewable tablet 2.5 mg PO QHS 5 Unknown History meloxicam 15 mg tablet 15 mg PO DAILY 10/05/24 Unkn own History simvastatin 20 mg tablet 20 mg PO QHS 10/05/24 Unknow n History valacyclovir 500 mg tablet 500 mg PO BID 10/05/24 Unkn own History vitamin E 268 mg (400 unit) capsule 268 mg PO DAILY Unknown History Allergy/AdvReac Type Severity Reaction Status Date / Time Opioids - Morphine Analogues Allergy Severe Hives Verified 10/21/24 15:06 alendronate sodium (From Allergy Pain in Verified 10/21/24 15:06 Fosamax) joints cefaclor (From Ceclor) Allergy Hives Verified 10/21/24 15:06 Penicillins Allergy Hives Verified 10/21/24 15:06 tramadol HCl (From Ultram) Allergy Hives Verified 10/21/24 15:06 erythromycin base AdvReac Nausea Verified 10/21/24 15:06 Family History Mother Leukemia Grandfather Brain cancer Father Respiratory disease Surgical History History of eyelid surgery History of shoulder surgery History of carpal tunnel release History of bilateral knee replacement H/O breast biopsy History of appendectomy Previous back surgery Social History Smoking Status: Former smoker Tobacco: How many years used: 30 alcohol intake: never ROS ROS ED ROS Narrative Constitutional: No fever, no chills. Low blood pressure today. HEENT: No sore throat. No neck pain. Hoarse voice/laryngitis no rhinorrhea. Cardiovascular: No chest pain. No palpitations. No pedal edema. Respiratory: No cough, no shortness of breath. Abdominal: No abdominal pain. No nausea. No vomiting. Genitourinary: No dysuria. No hematuria. Musculoskeletal: No myalgias. No arthralgias. Neurologic: No headaches. No dizziness. Positive lightheadedness. Psychiatric: No depression. No anxiety. EXAM Physical Exam Narrative Exam Narrative: Afebrile. Vital signs noted. Nontoxic-appearing. Cardiovascular examination reveals intermittent tachycardia just above 100 bpm. Lungs are clear to auscultation bilaterally, decreased breath sounds on left, moving a good amount of air, able to speak in full sentences with mild tachypnea at times. Abdomen is soft nontender. No noted pedal edema. Neurological examination is nonfocal and nonlateralizing. Const Vital Signs: 10/21/24 15:05 10/21/24 15:05 10/21/24 15:11 Temperature 98.4 F 98.4 F Temperature Source Oral Oral Pulse Rate 105 H 104 H Pulse Rate [Lying] Pulse Rate [Sitting (for 1 minute prior to obtaining)] Pulse Rate [Standing (for 1 minute prior to obtaining)] Respiratory Rate 21 H 20 H Respiratory Effort Short of Breath Labored Accessory Muscle Use Respiratory Pattern Tachypnea Blood Pressure 120/77 120/77 Blood Pressure [Lying] Blood Pressure [Sitting (for 1 minute prior to obtaining)] Blood Pressure [Standing (for 1 minute prior to obtaining)] Blood Pressure Mean 91 91 Blood Pressure Mean [Lying] Blood Pressure Mean [Sitting (for 1 minute prior to obtaining)] Blood Pressure Mean [Standing (for 1 minute prior to obtaining)] Pulse Ox 95 97 Oxygen Delivery Method Nasal Cannula Nasal Cannula Oxygen Flow Rate (L/min) 2 2 10/21/24 15:21 10/21/24 15:28 10/21/24 15:28 Temperature Temperature Source Pulse Rate 98 88 Pulse Rate [Lying] Pulse Rate [Sitting (for 1 minute prior to obtaining)] Pulse Rate [Standing (for 1 minute prior to obtaining)] Respiratory Rate 27 H 17 Respiratory Effort Respiratory Pattern Normal Blood Pressure Blood Pressure [Lying] Blood Pressure [Sitting (for 1 minute prior to obtaining)] Blood Pressure [Standing (for 1 minute prior to obtaining)] Blood Pressure Mean Blood Pressure Mean [Lying] Blood Pressure Mean [Sitting (for 1 minute prior to obtaining)] Blood Pressure Mean [Standing (for 1 minute prior to obtaining)] Pulse Ox 99 98 Oxygen Delivery Method Nasal Cannula Oxygen Flow Rate (L/min) 2 10/21/24 15:30 10/21/24 15:31 10/21/24 15:43 Temperature Temperature Source Pulse Rate 91 84 75 Pulse Rate [Lying] Pulse Rate [Sitting (for 1 minute prior to obtaining)] Pulse Rate [Standing (for 1 minute prior to obtaining)] Respiratory Rate 15 15 Respiratory Effort Respiratory Pattern Blood Pressure 93/75 93/75 Blood Pressure [Lying] Blood Pressure [Sitting (for 1 minute prior to obtaining)] Blood Pressure [Standing (for 1 minute prior to obtaining)] Blood Pressure Mean 83 81 Blood Pressure Mean [Lying] Blood Pressure Mean [Sitting (for 1 minute prior to obtaining)] Blood Pressure Mean [Standing (for 1 minute prior to obtaining)] Pulse Ox 97 97 98 Oxygen Delivery Method Nasal Cannula Oxygen Flow Rate (L/min) 2 10/21/24 15:43 10/21/24 15:45 10/21/24 15:45 Temperature Temperature Source Pulse Rate 84 74 Pulse Rate [Lying] 79 Pulse Rate [Sitting (for 1 minute prior to obtaining)] 83 Pulse Rate [Standing (for 1 minute prior to obtaining)] 96 Respiratory Rate 14 18 Respiratory Effort Respiratory Pattern Blood Pressure 99/63 91/65 Blood Pressure [Lying] 99/63 Blood Pressure [Sitting (for 1 minute prior to obtaining)] 91/65 Blood Pressure [Standing (for 1 minute prior to obtaining)] 94/75 Blood Pressure Mean 74 75 Blood Pressure Mean [Lying] 75 Blood Pressure Mean [Sitting (for 1 minute prior to obtaining)] 73 Blood Pressure Mean [Standing (for 1 minute prior to obtaining)] 81 Pulse Ox 97 98 Oxygen Delivery Method Oxygen Flow Rate (L/min) 10/21/24 15:47 10/21/24 16:00 10/21/24 16:15 Temperature Temperature Source Pulse Rate 88 83 Pulse Rate [Lying] Pulse Rate [Sitting (for 1 minute prior to obtaining)] Pulse Rate [Standing (for 1 minute prior to obtaining)] Respiratory Rate 22 H 22 H Respiratory Effort Respiratory Pattern Blood Pressure 94/75 109/77 107/76 Blood Pressure [Lying] Blood Pressure [Sitting (for 1 minute prior to obtaining)] Blood Pressure [Standing (for 1 minute prior to obtaining)] Blood Pressure Mean 82 88 87 Blood Pressure Mean [Lying] Blood Pressure Mean [Sitting (for 1 minute prior to obtaining)] Blood Pressure Mean [Standing (for 1 minute prior to obtaining)] Pulse Ox 98 98 Oxygen Delivery Method Oxygen Flow Rate (L/min) 10/21/24 16:39 Temperature 97.9 F Temperature Source Pulse Rate 80 Pulse Rate [Lying] Pulse Rate [Sitting (for 1 minute prior to obtaining)] Pulse Rate [Standing (for 1 minute prior to obtaining)] Respiratory Rate 16 Respiratory Effort Respiratory Pattern Blood Pressure 111/74 Blood Pressure [Lying] Blood Pressure [Sitting (for 1 minute prior to obtaining)] Blood Pressure [Standing (for 1 minute prior to obtaining)] Blood Pressure Mean 86 Blood Pressure Mean [Lying] Blood Pressure Mean [Sitting (for 1 minute prior to obtaining)] Blood Pressure Mean [Standing (for 1 minute prior to obtaining)] Pulse Ox 98 Oxygen Delivery Method Oxygen Flow Rate (L/min) MDM MDM MDM Narrative Medical decision making narrative: I reviewed the patient's prior records. She had a recent CTA that was negative for pulmonary embolism. She had been transferred to [facility] at the end of last month, just over a week ago because she washaving further testing for her lung carcinoma. Pulse ox is 97% on 2 L nasal cannula. I do feel thatmargot probably has more of a laryngitis and that her reported hypotension could be secondary tointravascular volume depletion versus dehydration. I have low concern for pulmonary embolism. This is because she had a recent CTA that was negative. Chest x-ray will be obtained to rule out pneumonia or pneumothorax. EKG was obtained and interpreted by myself independently as normal sinus rhythm at 97 bpm without ectopy or acute ST changes. No STEMI. I have low concern forACS currently, she is not having chest pain. I reviewed her laboratory work and she has normal white count of 5.6 with hemoglobin stable at 11.7, hematocrit 37.6, platelet count 335. BUN normal at 10 with creatinine 1.02, glucose appropriately elevated at 99 with calcium 9.2. On my independent interpretation of her chest x-ray, she has whiteout of the left lung, it was not as severe when compared to 10/05/2024. In discussion with her daughter, they are aware of this and states that they found that when she was at [facility] and recently discharged, stating that it was more metastasis and mass than it was fluid as there was not enoughfluid to perform thoracentesis. She is satting well on her nasal cannula oxygen which she wears at home. Orthostatics were negative although she had a lower systolic blood pressure in the 90s with no significant drop. After a bolus of 500 mL of IV fluids, she wasable to ambulate and felt improved. Her blood pressure did come up to 111/74. At this point in time, I do feel she probably has more of an intravascular volume depletion. I am hesitant to give her a large amount of fluid and I do think that her taking hydrochlorothiazide 25 mg on her home medication list has something to do with her low blood pressure. She was told to hold this and perhaps restart at half dosing should her systolic bloodpressure be over 140. At this point in time, I did discuss observation with them versus outpatient t reatment and they are comfortable with going home at this time as she feels improved after small aliquot of IV fluids. Return instructions to the emergencydepartment were reviewed. She will follow-upwith her oncologist. Disposition is discharged home in stable condition. Patient and daughter are ag reeable to the plan. History & Record Review Discussion w/independent historian: Patient and Family Additional record(s) reviewed:: Prior ED visit and Prior labs Lab Data Attestation: I reviewed the patient's lab results. Labs: Laboratory Results - last 24 hr 10/21/24 15:15 WBC 5.6 RBC 4.55 Hgb 11.7 L Hct 37.6 MCV 82.6 MCH 25.7 L MCHC 31.1 L RDW Std Deviation 53.9 H RDW Coeff of Juan David 17.9 H Plt Count 335 MPV 8.6 Immature Gran % (Auto) 0.400 Neut % (Auto) 70.7 H Lymph % (Auto) 16.1 L [place] % (Auto) 12.4 H Eos % (Auto) 0.2 Baso % (Auto) 0.2 Absolute Neuts (auto) 4.0 Absolute Lymphs (auto) 0.90 Nucleated RBC % 0 Sodium 140 Potassium 3.7 Chloride 102 Carbon Dioxide 24.0 Anion Gap 14 BUN 10 Creatinine 1.02 Estim Creat Clear Calc 48.29 L Est GFR (MDRD) Non-Af 58 L BUN/Creatinine Ratio 9.8 L Glucose 99 Calcium 9.2 Radiography Diagnostic Testing: Clinical Impression(s) from Imaging Studies Chest X-Ray 10/21/24 15:17 IMPRESSION: Complete whiteout of the left hemithorax. Uncertain if this is due to lobectomy, metastasis, pleural effusion, mucous plug or other etiology [facility] Discharge Plan Triage Chief Complaint: Shortness of Breath ED Provider: Tay Dumont Dx/Rx/DC Orders Clinical Impression: Acute hypotension, Lightheaded, Nausea, Small cell carcinoma of left lung Instructions: Hypotension Dc, ED Low Blood Pressure, All Causes Prescriptions: No Action cholecalciferol (vitamin D3) 25 mcg (1,000 unit) capsule 25 mcg PO QDAY multivitamin Tablet 1 tab PO QAM omega-3 fatty acids 1,000 mg capsule 1,000 mg PO QDAY albuterol sulfate 2.5 mg /3 mL (0.083 %) solution for nebulization 2.5 mg inhalation PRN PRN (Reason: shortness of breath or wheezing) Patient Comments: [NO ORIGINAL SIG] buspirone 10 MG tablet 10 mg PO TID albuterol sulfate 1 INHALER inhaler 1 - 2 puff inhalation Q4H PRN PRN (Reason: Sob &/Or Wheezing) loratadine 10 MG tablet 10 mg PO DAILY cetirizine [24Hour Allergy] 10 mg tablet 10 mg PO DAILY melatonin 2.5 mg tablet,chewable 2.5 mg PO QHS valacyclovir 500 mg tablet 500 mg PO BID simvastatin 20 mg tablet 20 mg PO QHS vitamin E 268 mg (400 unit) capsule 268 mg PO DAILY meloxicam 15 mg tablet 15 mg PO DAILY gabapentin 300 mg capsule 300 mg PO TID oxycodone-acetaminophen 5-325 mg tablet 1 tab PO TID PRN PRN (Reason: pain) trazodone 100 mg tablet 100 mg PO QHS hydrochlorothiazide 25 mg tablet 25 mg PO DAILY budesonide-formoterol 80-4.5 mcg/actuation HFA aerosol inhaler 1 inh INHALATION .x4 Patient Comments: [NO ORIGINAL SIG] Rx Instructions: 2 puffs in morning, 2 puffs at night Primary Care Provider: Tu Hector Referrals: Tu Hector DO [Primary Care Provider] - 3-5 Days if not improving Activity Restrictions/Additional Instructions: Avoid taking your hydrochlorothiazide for your high blood pressure over the nextfew days. You mightwant to start at taking half the dose of 12.5 mg if your blood pressure starts to elevate above 140systolic. Drink 20 of oral fluids. Return with sustained low blood pressure, new or worsening symptoms. Wear your oxygen as previously directed. Follow-up with your oncologist. Print Language: Bolivian Disposition Disposition: Home, Self Care What to do if you have Problems For any increased pain, shortness of breath, bleeding, nausea or vomiting, chestpain, or any unexpected problems, contact your Primary Care Provider. Call [facility] ([phone]) or report tothe closest Emergency Room. Call 911 if necessary. 10/21/24 2159 Cosigner Signature (if applicable): CC: Dr. Tu Hector DO ~ Signed [facility]04-05-2025 Radiology Diagnostic study note [facility] Imaging Services [address] [place] [address] Chest 1 View (Portable) MR#: [id number] Acct: [id number] Name: KARINA FERNANDO Rep #: [id number] : 1950 F 73 From: Pet er Peer PCP: Dr. Tu Hector, Status: REG ER Study:Chest 1 View (Portable) Date of Exam: 10/21/24 Exam# [id number] Ordering Dr: Tay Dumont MD PROCEDURE: CHEST 1 VIEW (PORTABLE) 10/21/2024 REASON FOR EXAM: SHORTNESS OF BREATH. Small-cell lung cancer TECHNIQUE: Frontal view of the chest. COMPARISON: Chest radiographs 10/05/2024 FINDINGS: Hardware: None Heart: Heart size is mildly enlarged. Lungs: The right lung is clear. There is now complete whiteout of the left hemithorax. There is leftward shift of the mediastinum with the trachea also being deviated toward the left. Bones: Unremarkable Other: Or other etiology RAD/Chest 1 View (Portable) IMPRESSION: Complete whiteout of the left hemithorax. Uncertain if this is due to lobectomy, metastasis, pleural effusion, mucous plug or other etiology Reading Location: [facility] CC: Dr. Tay Dumont MD; Dr. Tu Hector DO ~ [employer]eping [employer] Tender: Signed [facility]04-05-2025 Discharge summary Author Tay Dumont [facility] Note Date/Time October 21, 2024 4:45 pm [facility] Medical Records Department [address] [place] [address] Emergency Department Summary 10/21/24 MR#: [id number] Acct: [id number] Name: KARINA FERNANDO Rep #:[id number] : 1950 73 From: Tay Dumont MD PCP: Dr. Tu Hector, Status:REG ER Location: ED HPI History of Present Illness Chief Complaint: Shortness of Breath Narrative Narrative: 73-year-old female, past medical history of small cell lung carcinoma, had a recent PET scan, presents with low blood pressure today with feelings of lightheadedness and increased difficulty breathing. She presents with her daughter, states that she woke up this morning and she had more hoarse voice andlaryngitis. She notes that her blood pressure was low. Initially it was only 90 systolic. Throughout the day, it has been as high as 110, and even 100 systolic. She became more short of breath today. She had a recent admission and transfer to [facility] and her daughter states that when she was released she was placed on as needed oxygen because she was hypoxic and wears 2 to 3 L as needed. Patient quit smoking last year. She was concerned more abouther blood pressure being low today. No recent fevers or chills, no cough that is new. She does have history of hypertension and is on blood pressure medication according to her daughter. [facility] Medical History COPD (chronic obstructive pulmonary disease) Home Medications ?Medication ?Instructions ?Recorded ?Last Taken ?Type albuterol sulfate 90 mcg/actuation 1 - 2 puff inhalati on Q4H PRN PRN 08/24/19 Unknown History aerosol inhaler Sob &/Or Wheezing buspirone 10 mg tablet 10 mg PO TID 08/24/19 Unknow n History loratadine 10 mg tablet 10 mg PO DAILY 08/24/19 Unkn own History budesonide-formoterol HFA 80 1 inh inhalation .x4 08/20 01/10 Unknown History mcg-4.5 mcg/actuation aerosol inhaler hydrochlorothiazide 25 mg tablet 25 mg PO DAILY Unknown History oxycodone-acetaminophen 5 mg-325 1 tab PO TID PRN PRN pain 09/13/24 Unknown History mg tablet trazodone 100 mg tablet 100 mg PO QHS 09/13/24 Unkno wn History cholecalciferol (vitamin D3) 25 25 mcg PO QDAY 5 Unknown History mcg (1,000 unit) capsule multivitamin 1 tab PO QAM 09/18/24 Unknow n History omega-3 fatty acids 1,000 mg 1,000 mg PO QDAY 09/18/24 Unknown History capsule albuterol sulfate 2.5 mg/3 mL 2.5 mg inhalation PRN KS N 09/22/24 Unknown History (0.083 %) solution for nebulization shortness of breat h or wheezing cetirizine 10 mg tablet (24Hour 10 mg PO DAILY 5 Unknown History Allergy) gabapentin 300 mg capsule 300 mg PO TID 10/05/24 Unkno wn History melatonin 2.5 mg chewable tablet 2.5 mg PO QHS 5 Unknown History meloxicam 15 mg tablet 15 mg PO DAILY 10/05/24 Unkn own History simvastatin 20 mg tablet 20 mg PO QHS 10/05/24 Unknow n History valacyclovir 500 mg tablet 500 mg PO BID 10/05/24 Unkn own History vitamin E 268 mg (400 unit) capsule 268 mg PO DAILY Unknown History Allergy/AdvReac Type Severity Reaction Status Date / Time Opioids - Morphine Analogues Allergy Severe Hives Verified 10/21/24 15:06 alendronate sodium (From Allergy Pain in Verified 10/21/24 15:06 Fosamax) joints cefaclor (From Ceclor) Allergy Hives Verified 10/21/24 15:06 Penicillins Allergy Hives Verified 10/21/24 15:06 tramadol HCl (From Ultram) Allergy Hives Verified 10/21/24 15:06 erythromycin base AdvReac Nausea Verified 10/21/24 15:06 Family History Mother Leukemia Grandfather Brain cancer Father Respiratory disease Surgical History History of eyelid surgery History of shoulder surgery History of carpal tunnel release History of bilateral knee replacement H/O breast biopsy History of appendectomy Previous back surgery Social History Smoking Status: Former smoker Tobacco: How many years used: 30 alcohol intake: never ROS ROS ED ROS Narrative Constitutional: No fever, no chills. Low blood pressure today. HEENT: No sore throat. No neck pain. Hoarse voice/laryngitis no rhinorrhea. Cardiovascular: No chest pain. No palpitations. No pedal edema. Respiratory: No cough, no shortness of breath. Abdominal: No abdominal pain. No nausea. No vomiting. Genitourinary: No dysuria. No hematuria. Musculoskeletal: No myalgias. No arthralgias. Neurologic: No headaches. No dizziness. Positive lightheadedness. Psychiatric: No depression. No anxiety. EXAM Physical Exam Narrative Exam Narrative: Afebrile. Vital signs noted. Nontoxic-appearing. Cardiovascular examination reveals intermittent tachycardia just above 100 bpm. Lungs are clear to auscultation bilaterally, decreased breath sounds on left, moving a good amount of air, able to speak in full sentences with mild tachypnea at times. Abdomen is soft nontender. No noted pedal edema. Neurological examination is nonfocal and nonlateralizing. Const Vital Signs: 10/21/24 15:05 10/21/24 15:05 10/21/24 15:11 Temperature 98.4 F 98.4 F Temperature Source Oral Oral Pulse Rate 105 H 104 H Pulse Rate [Lying] Pulse Rate [Sitting (for 1 minute prior to obtaining)] Pulse Rate [Standing (for 1 minute prior to obtaining)] Respiratory Rate 21 H 20 H Respiratory Effort Short of Breath Labored Accessory Muscle Use Respiratory Pattern Tachypnea Blood Pressure 120/77 120/77 Blood Pressure [Lying] Blood Pressure [Sitting (for 1 minute prior to obtaining)] Blood Pressure [Standing (for 1 minute prior to obtaining)] Blood Pressure Mean 91 91 Blood Pressure Mean [Lying] Blood Pressure Mean [Sitting (for 1 minute prior to obtaining)] Blood Pressure Mean [Standing (for 1 minute prior to obtaining)] Pulse Ox 95 97 Oxygen Delivery Method Nasal Cannula Nasal Cannula Oxygen Flow Rate (L/min) 2 2 10/21/24 15:21 10/21/24 15:28 10/21/24 15:28 Temperature Temperature Source Pulse Rate 98 88 Pulse Rate [Lying] Pulse Rate [Sitting (for 1 minute prior to obtaining)] Pulse Rate [Standing (for 1 minute prior to obtaining)] Respiratory Rate 27 H 17 Respiratory Effort Respiratory Pattern Normal Blood Pressure Blood Pressure [Lying] Blood Pressure [Sitting (for 1 minute prior to obtaining)] Blood Pressure [Standing (for 1 minute prior to obtaining)] Blood Pressure Mean Blood Pressure Mean [Lying] Blood Pressure Mean [Sitting (for 1 minute prior to obtaining)] Blood Pressure Mean [Standing (for 1 minute prior to obtaining)] Pulse Ox 99 98 Oxygen Delivery Method Nasal Cannula Oxygen Flow Rate (L/min) 2 10/21/24 15:30 10/21/24 15:31 10/21/24 15:43 Temperature Temperature Source Pulse Rate 91 84 75 Pulse Rate [Lying] Pulse Rate [Sitting (for 1 minute prior to obtaining)] Pulse Rate [Standing (for 1 minute prior to obtaining)] Respiratory Rate 15 15 Respiratory Effort Respiratory Pattern Blood Pressure 93/75 93/75 Blood Pressure [Lying] Blood Pressure [Sitting (for 1 minute prior to obtaining)] Blood Pressure [Standing (for 1 minute prior to obtaining)] Blood Pressure Mean 83 81 Blood Pressure Mean [Lying] Blood Pressure Mean [Sitting (for 1 minute prior to obtaining)] Blood Pressure Mean [Standing (for 1 minute prior to obtaining)] Pulse Ox 97 97 98 Oxygen Delivery Method Nasal Cannula Oxygen Flow Rate (L/min) 2 10/21/24 15:43 10/21/24 15:45 10/21/24 15:45 Temperature Temperature Source Pulse Rate 84 74 Pulse Rate [Lying] 79 Pulse Rate [Sitting (for 1 minute prior to obtaining)] 83 Pulse Rate [Standing (for 1 minute prior to obtaining)] 96 Respiratory Rate 14 18 Respiratory Effort Respiratory Pattern Blood Pressure 99/63 91/65 Blood Pressure [Lying] 99/63 Blood Pressure [Sitting (for 1 minute prior to obtaining)] 91/65 Blood Pressure [Standing (for 1 minute prior to obtaining)] 94/75 Blood Pressure Mean 74 75 Blood Pressure Mean [Lying] 75 Blood Pressure Mean [Sitting (for 1 minute prior to obtaining)] 73 Blood Pressure Mean [Standing (for 1 minute prior to obtaining)] 81 Pulse Ox 97 98 Oxygen Delivery Method Oxygen Flow Rate (L/min) 10/21/24 15:47 10/21/24 16:00 10/21/24 16:15 Temperature Temperature Source Pulse Rate 88 83 Pulse Rate [Lying] Pulse Rate [Sitting (for 1 minute prior to obtaining)] Pulse Rate [Standing (for 1 minute prior to obtaining)] Respiratory Rate 22 H 22 H Respiratory Effort Respiratory Pattern Blood Pressure 94/75 109/77 107/76 Blood Pressure [Lying] Blood Pressure [Sitting (for 1 minute prior to obtaining)] Blood Pressure [Standing (for 1 minute prior to obtaining)] Blood Pressure Mean 82 88 87 Blood Pressure Mean [Lying] Blood Pressure Mean [Sitting (for 1 minute prior to obtaining)] Blood Pressure Mean [Standing (for 1 minute prior to obtaining)] Pulse Ox 98 98 Oxygen Delivery Method Oxygen Flow Rate (L/min) 10/21/24 16:39 Temperature 97.9 F Temperature Source Pulse Rate 80 Pulse Rate [Lying] Pulse Rate [Sitting (for 1 minute prior to obtaining)] Pulse Rate [Standing (for 1 minute prior to obtaining)] Respiratory Rate 16 Respiratory Effort Respiratory Pattern Blood Pressure 111/74 Blood Pressure [Lying] Blood Pressure [Sitting (for 1 minute prior to obtaining)] Blood Pressure [Standing (for 1 minute prior to obtaining)] Blood Pressure Mean 86 Blood Pressure Mean [Lying] Blood Pressure Mean [Sitting (for 1 minute prior to obtaining)] Blood Pressure Mean [Standing (for 1 minute prior to obtaining)] Pulse Ox 98 Oxygen Delivery Method Oxygen Flow Rate (L/min) MDM MDM MDM Narrative Medical decision making narrative: I reviewed the patient's prior records. She had a recent CTA that was negative for pulmonary embolism. She had been transferred to [facility] at the end of last month, just over a week ago because she was having further testing for her lung carcinoma. Pulse ox is 97% on 2 L nasal cannula. I do feel that she probably has more of a laryngitis and that her reported hypotension could be secondary tointravascular volume depletion versus dehydration. I have low concern for pulmonary embolism. This is because she had a recent CTA that was negative. Chest x-ray will be obtained to rule out pneumonia or pneumothorax. EKG was obtained and interpreted by myself independently as normal sinus rhythm at 97 bpm without ectopy or acute ST changes. No STEMI. I have low concern forACS currently, she is not having chest pain. I reviewed her laboratory work and she has normal white count of 5.6 with hemoglobin stable at 11.7, hematocrit 37.6, platelet count 335. BUN normal at 10 with creatinine 1.02, glucose appropriately elevated at 99 with calcium 9.2. On my independent interpretation of her chest x-ray, she has whiteout of the left lung, it was not as severe when compared to 10/05/2024. In discussion with her daughter, they are aware of this and states that they found that when she was at [facility] and recently discharged, stating that it was more metastasis and mass than it was fluid as there was not enough fluid to perform thoracentesis. She is satting well on her nasal cannula oxygen which she wears at home. Orthostatics were negative although she had a lower systolic blood pressure in the 90s with no significant drop. After a bolus of 500 mL of IV fluids, she wasable to ambulate and felt improved. Her blood pressure did come up to 111/74. At this point in time, I do feel she probably has more of an intravascular volume depletion. I am hesitant to give her a large amount of fluid and I do think that her taking hydrochlorothiazide 25 mg on her home medication list has something to do with her low blood pressure. She was told to hold this and perhaps restart at half dosing should her systolic blood pressure be over 140. At this point in time, I did discuss observation with them versus outpatient treatment and they are comfortable with going home at this time as she feels improved after small aliquot of IV fluids. Return instructions to the emergencydepartment were reviewed. She will follow-up with her oncologist. Disposition is discharged home in stable condition. Patient and daughter are agreeable to the plan. History & Record Review Discussion w/independent historian: Patient and Family Additional record(s) reviewed:: Prior ED visit and Prior labs Lab Data Attestation: I reviewed the patient's lab results. Labs: Laboratory Results - last 24 hr 10/21/24 15:15 WBC 5.6 RBC 4.55 Hgb 11.7 L Hct 37.6 MCV 82.6 MCH 25.7 L MCHC 31.1 L RDW Std Deviation 53.9 H RDW Coeff of Juan David 17.9 H Plt Count 335 MPV 8.6 Immature Gran % (Auto) 0.400 Neut % (Auto) 70.7 H Lymph % (Auto) 16.1 L [place] % (Auto) 12.4 H Eos % (Auto) 0.2 Baso % (Auto) 0.2 Absolute Neuts (auto) 4.0 Absolute Lymphs (auto) 0.90 Nucleated RBC % 0 Sodium 140 Potassium 3.7 Chloride 102 Carbon Dioxide 24.0 Anion Gap 14 BUN 10 Creatinine 1.02 Estim Creat Clear Calc 48.29 L Est GFR (MDRD) Non-Af 58 L BUN/Creatinine Ratio 9.8 L Glucose 99 Calcium 9.2 Radiography Diagnostic Testing: Clinical Impression(s) from Imaging Studies Chest X-Ray 10/21/24 15:17 IMPRESSION: Complete whiteout of the left hemithorax. Uncertain if this is due to lobectomy, metastasis, pleural effusion, mucous plug or other etiology Reading Location: [facility] Discharge Plan Triage Chief Complaint: Shortness of Breath ED Provider: Tay Dumont Dx/Rx/DC Orders Clinical Impression: Acute hypotension, Lightheaded, Nausea, Small cell carcinoma of left lung Instructions: Hypotension Dc, ED Low Blood Pressure, All Causes Prescriptions: No Action cholecalciferol (vitamin D3) 25 mcg (1,000 unit) capsule 25 mcg PO QDAY multivitamin Tablet 1 tab PO QAM omega-3 fatty acids 1,000 mg capsule 1,000 mg PO QDAY albuterol sulfate 2.5 mg /3 mL (0.083 %) solution for nebulization 2.5 mg inhalation PRN PRN (Reason: shortness of breath or wheezing) Patient Comments: [NO ORIGINAL SIG] buspirone 10 MG tablet 10 mg PO TID albuterol sulfate 1 INHALER inhaler 1 - 2 puff inhalation Q4H PRN PRN (Reason: Sob &/Or Wheezing) loratadine 10 MG tablet 10 mg PO DAILY cetirizine [24Hour Allergy] 10 mg tablet 10 mg PO DAILY melatonin 2.5 mg tablet,chewable 2.5 mg PO QHS valacyclovir 500 mg tablet 500 mg PO BID simvastatin 20 mg tablet 20 mg PO QHS vitamin E 268 mg (400 unit) capsule 268 mg PO DAILY meloxicam 15 mg tablet 15 mg PO DAILY gabapentin 300 mg capsule 300 mg PO TID oxycodone-acetaminophen 5-325 mg tablet 1 tab PO TID PRN PRN (Reason: pain) trazodone 100 mg tablet 100 mg PO QHS hydrochlorothiazide 25 mg tablet 25 mg PO DAILY budesonide-formoterol 80-4.5 mcg/actuation HFA aerosol inhaler 1 inh INHALATION .x4 Patient Comments: [NO ORIGINAL SIG] Rx Instructions: 2 puffs in morning, 2 puffs at night Primary Care Provider: Tu Hector Referrals: Tu Hector DO [Primary Care Provider] - 3-5 Days if not improving Activity Restrictions/Additional Instructions: Avoid taking your hydrochlorothiazide for your high blood pressure over the nextfew days. You might want to start at taking half the dose of 12.5 mg if your blood pressure starts to elevate above 140 systolic. Drink 20 of oral fluids. Return with sustained low blood pressure, new or worsening symptoms. Wear your oxygen as previously directed. Follow-up with your oncologist. Print Language: Bolivian Disposition Disposition: Home, Self Care What to do if you have Problems For any increased pain, shortness of breath, bleeding, nausea or vomiting, chestpain, or any unexpected problems, contact your Primary Care Provider. Call [facility] ([phone]) or report to the closest Emergency Room. Call 911 if necessary. 10/21/24 1645 <Electronically signed by Tay Dumont MD> Cosigner Signature (if applicable): CC: Dr. Tu Hector, DO ~ Signed [facility] Work Phone: [phone] 743-402704-03-2025 NoteDrJosh Kamara placed the recommended referral to [facility] medical oncology. Navigator spoke directly with occupational health coordinator and medical oncology provider office and stressed urgency of appointment follow-up. sales promotion coordinator and medical oncology discussed directly with oncologist at [facility]. They are unable to offer Karina an appointment sooner than previously scheduled with her [place] oncology team. Navigator apologized to family and recommended they keep previously scheduled [place] oncology appointment. Patient will see Dr. Dunham 11/01/24 per daughter. Records have been sent to [place] and PET and MRI will also be sent when reports are final. Family has navigator contact info and will call if they need assistance.[facility] [id number] Telephone encounter Note* Telephone Encounter - Aixa Roche RCP - 10/19/2024 12:[address] Lacho Kamara placed the recommended referral to [facility] medical oncology. Navigator spoke directly with occupational health coordinator and medical oncology provider office and stressed urgency of appointment follow-up. sales promotion coordinator and medical oncology discussed directly with oncologist at [facility]. They are unable to offer Karina an appointment sooner than previously scheduled with her [place] oncology team. Navigator apologized to family and recommended they keep previously scheduled [place] oncology appointment. Patient will see Dr. Dunham 11/01/24 per daughter. Records have been sent to [place] and PET and MRI will also be sent when reports are final. Family has navigator contact info and will call if they need assistance. [id number] Miscellaneous Notes* Telephone Encounter - Aixa Roche RCP - 10/19/2024 12:[address] Lacho Kamara placed the recommended referral to [facility] medical oncology. Navigator spoke directly with occupational health coordinator and medical oncology provider office and stressed urgency of appointment follow-up. sales promotion coordinator and medical oncology discussed directly with oncologist at [facility]. They are unable to offer Karina an appointment sooner than previously scheduled with her [place] oncology team. Navigator apologized to family and recommended they keep previously scheduled [place] oncology appointment. Patient will see Dr. Dunham 11/01/24 per daughter. Records have been sent to [place] and PET and MRI will also be sent when reports are final. Family has navigator contact info and will call if they need assistance. * Telephone Encounter - Aixa Roche RCP - 10/18/2024 11:[address] referral for medical oncology to [facility]. Navigator spoke with occupational health coordinator and medical oncology office. She will discuss with oncology providers tomorrow morning to stress the urgency of appointment and attempt to expedite appointment. If unable to get patient in sooner than [place], navigator will advise patient to keep previously scheduled oncology follow-up. Daughter notified. * Telephone Encounter - Aixa Roche RCP - 10/18/2024 8:33 AM EDT Navigator received callback from patient's daughter Diaz. Patient's daughter reports that since we are able to expedite MRI and PET scan, oncology appointment has been moved up to 10/31/2024, but this is just tentative appointment as [place] and may not be back until 11/06/2024. Daughter would like Dr. Lacho Kamara to review and [facility] oncology appointment for small cell is needed. * Telephone Encounter - Aixa Roche RCP - 10/17/2024 2:10 PM EDT Navigator contacted patient's daughter by phone. They would like first available PET scan at any location. She is currently scheduled 10/30/24. Moved up PET scan appointment to Faxed records including path report, thoracentesis report, thoracic conference recommendations, CTSand pulmonary and cardiology consults to patient's regular oncologist, Dr. Dunham and sampler and test preparer Rhiannon Georges in [place]. Patient has medical oncology appointment 11/06/24 but will try to move appointment sooner after PET scan. Navigator will send PET and MRI reports to providers once final . documented in this [facility]04-02-[address] for medical oncology to [facility]. Navigator spoke with occupational health coordinator and medical oncology office. She will discuss with oncology providers tomorrow morning to stress the urgency of appointment and attempt to expedite appointment. If unable to get patient in sooner than [place], navigator will advise patient to keep previously scheduled oncology follow-up. Daughter notified.[facility]04-02-2025 Telephone encounter Note* Telephone Encounter - Aixa Roche RCP - 10/18/2024 11:[address] referral for medical oncology to [facility]. Navigator spoke with occupational health coordinator and medical oncology office. She will discuss with oncology providers tomorrow morning to stress the urgency of appointment and attempt to expedite appointment. If unable to get patient in sooner than [place], navigator will advise patient to keep previously scheduled oncology follow-up. Daughter notified. [facility] [id number] Telephone encounter Note* Telephone Encounter - Aixa Roche RCP - 10/18/2024 8:33 AM EDT Navigator received callback from patient's daughter Diaz. Patient's daughter reports that since we are able to expedite MRI and PET scan, oncology appointment has been moved up to 10/31/2024, but this is just tentative appointment as her oncology provider [facility] is out of town and may not be back until 11/06/2024. Daughter would like Dr. Lacho Kamara to review and is willing to transfer care for oncology the [facility] if pulmonary provider feels sooner oncology appointment for small cell is needed. [facility] [id number] Telephone encounter Note* Telephone Encounter - Aixa Roche RCP - 10/17/2024 2:10 PM EDT Navigator contacted patient's daughter by phone. They would like first available PET scan at any location. She is currently scheduled 10/30/24. Moved up PET scan appointment to Faxed records including path report, thoracentesis report, thoracic conference recommendations, CTSand pulmonary and cardiology consults to patient's regular oncologist, Dr. Dunham and sampler and test preparer Rhiannon Georges in [place]. Patient has medical oncology appointment 11/06/24 but will try to move appointment sooner after PET scan. Navigator will send PET and MRI reports to providers once final . [facility] [id number] History of Present illness Narrative* Rachel Kamara DO - 10/17/2024 11:30 AM EDT [facility], Pulmonary Critical Care Medicine [address] [place] [id number] Pulmonary Patient Visit 10/17/2024 Referring Physician: TU HECTOR DO Reason for Referral: SOB 10/03/24 History of Present Illness Karina Fernando is a 73 y.o. F with history of recurrent sinus infections, COPD on symbicort/albuterol,HTN who presented for a left hilar mass. Stated that in May she began having shortness of breath which worsened until she went to the ER in [place] in August. Found on CT with a left hilar mass, left upper lobe pleural-based mass, and moderate pericardial effusion. Evaluated by oncology and recommended for PET/CT, MRI brain, and biopsy. Established with pulmonology and had been planned forEBUS in [place] but canceled after TTE demonstrated a right atrial mass and moderate RA collapse due to a small pericardial effusion. Evaluated by Dr. Fortune earlier today. Patient reports dyspnea has continued to progress, experiences when she is sitting upright or with exertion. Has had a cough and occasional wheezing. Now on Symbicort and using albuterol 4 times daily. Reported substernal chest discomfort since May. Has had lightheadedness and dizziness for the past 3 days. Has a history of facial BCC s/p excision 2022. Denied hemoptysis, chest tightness, unintentinoal weight loss Smoking history: Former smoker quit 05/2024, 1 ppd x 40 years Occupational exposure: Denied Family history of malignancy: Mother with leukemia, father with brain cancer Age appropriate cancer screening Mammography/PAP: Previously normal Colonoscopy: Previously normal 10/17/24 Patient was hospitalized in [place] ER for worsening pain and shortness of breath, unchanged. Transferred to [facility]. S/p bronchoscopy 10/09/[address] Mejia. Reported continued cough and shortness of breath. 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 Spondylolisthesis, lumbar region Past Surgical History Past Surgical History: Procedure Laterality Date APPENDECTOMY BLEPHAROPLASTY Bilateral BUNIONECTOMY Left CARPAL TUNNEL RELEASE Right HC ENDOBRONCHIAL ULTRASOUND EBUS (HISTORICAL) 10/09/2024 LUMBAR FUSION TOTAL KNEE ARTHROPLASTY Bilateral VAGINAL DELIVERY 1970 VAGINAL DELIVERY 1972 Allergies Allergies Allergen Reactions Alendronate Muscle ache, Swelling / lump finding Cefaclor Hives Erythromycin Nausea And Vomiting Erythromycin Base Nausea Only Famciclovir Hives Gabapentin Unknown Morphine Nausea And Vomiting Penicillins Hives Tramadol Hives, Itching and Nausea And Vomiting Hydrochlorothiazide W-Triamterene Rash Medications Medication Documentation Review Audit Reviewed by Rachel Johnson DO (Physician) on 10/17/24 at 1226 Medication Order Taking? Sig Documenting Provider Last Dose Status acetaminophen (Tylenol) 325 MG tablet [id number] Take 2 tablets (650 mg) by mouth every 6 hours as needed for mild pain (1-3) or fever (For temp greater than 100.4 F (38 C)) for up to 10 days. Patient not taking: Reported on 10/09/2024 Emile Horne DO 10/16/24 2359 albuterol (Ventolin HFA) 108 (90 Base) MCG/ACT inhaler [id number] Yes Inhale 2 puffs every 4 hours as needed for wheezing or shortness of breath. Rachel Johnson DO Active ALPRAZolam (Xanax) 0.5 MG tablet [id number] Take 1 tablet (0.5 mg) by mouth 1 time for 1 dose. Take 30 minutes prior to MRI Lisandra Aldridge APRN - RX SPECIALIST 10/10/24 2359 Discontinued 10/17/24 1119 budesonide-formoterol (Symbicort) 80-4.5 MCG/ACT inhaler [id number] Inhale 2 puffs 2 times daily. Rachel Johnson DO Active busPIRone (Buspar) 10 MG tablet [id number] Yes Take 10 mg by mouth 3 times daily as needed. Historical ProviderMD Active cholecalciferol (Vitamin D-3) 25 MCG (1000 UT) capsule [id number] Yes Take 1,000 Units by mouth daily. Historical ProviderMD Active ipratropium-albuterol (Duo-Neb) 0.5-2.5 mg/3 mL nebulizer solution [id number] Yes Take 3 mL by nebulization every 6 hours. Historical ProviderMD Active loratadine (Claritin) 5 MG chewable tablet [id number] Yes Chew 5 mg daily. Historical ProviderMD Active Melatonin 2.5 MG chewable tablet [id number] Yes Chew Daily as needed. Historical ProviderMD Active Multiple Vitamin (multivitamin) capsule [id number] Yes Take 1 capsule by mouth daily. Historical ProviderMD Active [place]-3 Fatty Acids (OMEGA 3 500 PO) [id number] Yes Take by mouth daily. Historical Provider, Active oxyCODONE-acetaminophen (Percocet) 7.5-325 MG tablet [id number] Take 1 tablet by mouth every 6 hoursas needed for moderate pain (4-6) for up to 5 days. Emile Horne, DO 10/11/24 2359 traZODone (Desyrel) 100 MG tablet [id number] Yes Take 100 mg by mouth Nightly. Historical Provider, Active valACYclovir (Valtrex) 500 MG tablet [id number] Yes Take by mouth daily. Historical Provider, Active Vitamin E 268 MG (400 UNIT) capsule [id number] Yes Take by mouth daily. Historical Provider, Active Social History Social History Tobacco Use Smoking status: Former Average packs/day: 1 pack/day for 51.9 years (51.9 ttl pk-yrs) Types: Cigarettes Start date: 1972 Passive exposure: Past Smokeless tobacco: Never Substance Use Topics Alcohol use: Not Currently FamilyHistory Family History Problem Relation Name Age of Onset Cancer Mother Cancer Father No Known Problems Sister No Known Problems Brother Heart disease Brother Review of Systems Review of Systems Constitutional: Negative. Respiratory: Positive for cough and shortness of breath. Negative for wheezing. Cardiovascular: Negative. Physical Exam Vitals: 10/17/24 1107 BP: 122/64 BP Location: Left arm Patient Position: Sitting BP Cuff Size: Adult Pulse: 81 Resp: 18 Temp: 36.4 C (97.5 F) TempSrc: Temporal SpO2: 94% Weight: 165 lb (74.8 kg) Height: 5' 3 (1.6 m) Physical Exam Vitals reviewed. Constitutional: General: She is not in acute distress. Appearance: Normal appearance. HENT: Head: Normocephalic and atraumatic. Nose: No congestion. Mouth/Throat: Mouth: Mucous membranes are moist. Eyes: General: No scleral icterus. Extraocular Movements: Extraocular movements intact. Cardiovascular: Rate and Rhythm: Normal rate and regular rhythm. Pulmonary: Effort: Pulmonary effort is normal. No respiratory distress. Breath sounds: No wheezing, rhonchi or rales. Comments: Minimal left-sided breath sounds Musculoskeletal: General: No swelling. Skin: General: Skin is warm and dry. Neurological: Mental Status: She is alert and oriented to person, place, and time. Psychiatric: Mood and Affect: Mood normal. Labs: Available studies were reviewed Radiology: Personally reviewed and interpreted Chest CTA 09/13/2024 ([place], report in media, images in PACS): Left hilar mass, left upper lobe pleural-based mass and large prevascular lymph node concerning for malignancy. Diffuse emphysematous changes. Moderate pericardial effusion. TTE 09/25/2024 ([place], report in media): LV systolic function is normal. RVSP 35 mmHg. Right atrium with 2 cm x 1.9 cm spherical mass. Small pericardial effusion. There is moderate RA collapse for less than 50% of the cardiac cycle. PFT's: 09/25/2024: Severe obstruction on spirometry, air trapping, moderately reduced diffusion capacity Assessment/plan: Left hilar mass, small cell carcinoma Adenopathy Right atrial mass Pericardial effusion Thyroid nodules COPD Former smoker -S/p bronchoscopy with EBUS 10/09/[address] Mejia. Concern for right endobronchial lesion, biopsy negative for malignancy. Lymph nodes 11L, 7 and BAL positive for small cell carcinoma. Lymph nodes 4Rand 11R negative for malignancy. Sputum culture with stenotrophomonas. Fungal stain/culture, AFB sta in/culture negative/NGTD. Results reviewed with patient and family. -Reviewed at thoracic tumor board this morning. Completed MRI brain this morning, results pending. Pending PET/CT. Will need referral to oncology, patient prefers to follow-up with Dr. Chance. Willforward results and reports to his office, discussed with lung cancer coordinator. -Prescribed a 7-day course of Levaquin for stenotrophomonas. -Completed biopsy of thyroid nodules, results pending. -Patient prefers to continue with Symbicort, refilled. Continue with albuterol as needed. Follow up: Patient will follow-up with her sampler and test preparer and oncologist in [place] Please seek immediate medical attention for any worsening or worrying new symptoms. Patient education, benefits, risks, and precautions provided. Management plan was discussed in detail and in agreement. All questions or concerns answered to satisfaction and understood. Rachel Johnson DO 12:27 PM 10/17/24 Pulmonary and Critical Care Medicine documented in this [facility]04-01-2025 Instructions* Patient Instructions* Domenica Webb MA - 10/17/2024 11:30 AM EDT YOUR APPOINTMENT TODAY WAS WITH THE [facility] LUNG NODULE CLINIC, COPD CLINIC, PULMONARY AND SLEEP MEDICINE OFFICE. PLEASE CALL OUR OFFICE AT [phone] IF YOU HAVE NOT RECEIVED YOUR TEST RESULTS 7 DAYS AFTER TESTING IS COMPLETED. PLEASE REMEMBER TO REQUEST REFILLS AT YOUR OFFICE VISITS. PHONE/FAX REQUESTS REQUIRE 48-72 HOURS FOR RESPONSE. A FRIENDLY REMINDER COPAYS ARE DUE AT TIME OF SERVICE. THANK YOU. Our Patients Are Important! We want to improve and you can help. After your visit we want you to feel: Listened to, Respected and have your health care explained. You may receive a survey asking you about your visit. Please complete the survey. We will use your feedback to make improvements. COVID-19 VACCINATION INFORMATION: PH. [phone] [email or web address] [facility] Central Scheduling [phone] [facility] Sleep Scheduling [phone] documented in this [facility]04-01-2025 History of Present illness Narrative* Aixa Roche RCP - 10/17/2024 9:13 AM EDT THORACIC ONCOLOGY AND LUNG NODULE TUMOR BOARD RECOMMENDATIONS Consensus Recommendation Summary Privileged Information TUMOR BOARD CLINICAL SUMMARY Basic Demographic Information Karina Fernando Date of presentation : 10/17/24 1950 Presenting physician: Dr. Johnson 73 y.o. [] Previous presentation date : Presentation Type [x] Prospective [] Retrospective [] Nodule Brief Clinical Summary & Tumor Board Recommendations 4 Diagnosis Small Cell Ca; Thyroid nodules; R atrial mass Presenter: Dr. Mejia Screening: Name Karina Fernando Surgeon: Dr. Evita Watson to do recommendations for CAMACHO maria: JOEL MR#/Epic [id number] Oncologist: Dr. Mauri Chance ([place]) CTAP: /Age [birth year] 73 yo Rad Oncologist MRI: 10/17/24 Gender Female Digital Commentator: Dr. Lacho Kamara/ [place] [facility] PET: 10/30/24 Smoking History: ? Former 40 pk yr Quit 05/2024 PCP: Dr. Tu Hector PFT: 09/25/24 @ [place] [facility] ?Prospective []Retrospective Steam Drier Operator: Dr. Luis PATH: EBUS/TBBX 10/09/24; US Thora 10/06/24; Thyroid bx- [place] 10/10/24 (path pending) Clinical Stage: unable to stage : @ least N2 dz Path Stage: T N M Barium Swallow 10/06/24 Brief Summary Known COPD was seen in ED at [place] for eval of worsening SOB, Left shoulder, back, and lung pain, and dizziness. CT in [place] noted a left hilar mass, LEYLA mass and adenopathy, R atrial mass, pericardial effusion and thyroid nodules. Evaluated by [place] med onc and recommended to have PET, MRI and biopsy. Sent to [facility] CTS and arranged same day urgent appts with pulmonary and cardiology. Sent for EBUS and now presents to review imaging, path, staging and plan of care. * Also completed thyroid bx @ [place] and path results are pending Recommendations: 1. MRI Brain 2. PET 3. Med Onc Eval Available Protocol Recommendation [] Yes Protocol: Report Completed by Aixa Roche RCP 10/17/2024 Thoracic Tumor Board Moderator-Wesley Gonzalez DO Recommendations from Tumor Conference are based on national evidence based guidelines. The plan used by the managing physician(s) may vary based on the status of the individual patient and the reports results made available at time of presentation. We recognize that this data set may change and that the final treatment plan may differ from this recommendation. documented in this [facility]03-27-2025 NotePatient: Karina Fernando Procedure Summary Date: 10/09/24 Room / Location: [place] [address] / [facility] Gastroenterology Anesthesia Start: 1439 Anesthesia Stop: 1542 Procedure: ENDOBRONCHIAL ULTRASOUND WITH TRANSBRONCHIAL NEEDLE ASPIRATION. POSSIBLE ENDOBRONCHIAL BIOPSIES, NEEDLE ASPIRATION, AND BRUSHINGS. Diagnosis: Hilar mass Adenopathy Lung mass Providers: Cain Mejia MD Responsible Provider: Kilo Swan MD Anesthesia Type: general ASA Status: 3 Anesthesia Type: general Vitals Value Taken Time BP 112/72 10/09/24 1630 Temp 36.4 ?C (97.6 ?F) 10/09/24 1545 Pulse 90 10/09/24 1630 Resp 22 10/09/24 1630 SpO2 92 % 10/09/24 1630 Anesthesia Post Evaluation Patient location during evaluation: PACU Patient participation: complete - patient participated Level of consciousness: awake and alert Pain management: adequate Airway patency: patent Dental Injury: no Cardiovascular status: acceptable and hemodynamically unstable (consult to ICU. concern for septic shock.) Respiratory status: acceptable and spontaneous ventilation Hydration status: euvolemic Nausea/Vomiting: controlled No notable events documented. Patient can be discharged once all PACU criteria has been met.[facility] [id number] NotePatient: Karina Fernando Procedure Summary Date: 10/09/24 Room / Location: [place] [address] / [facility] Gastroenterology Anesthesia Start: 1439 Anesthesia Stop: 1542 Procedure: ENDOBRONCHIAL ULTRASOUND WITH TRANSBRONCHIAL NEEDLE ASPIRATION. POSSIBLE ENDOBRONCHIAL BIOPSIES, NEEDLE ASPIRATION, AND BRUSHINGS. Diagnosis: Hilar mass Adenopathy Lung mass Providers: Cain Mejia MD Responsible Provider: Kilo Swan MD Anesthesia Type: general ASA Status: 3 Anesthesia Type: general Vitals Value Taken Time BP 112/72 10/09/24 1630 Temp 36.4 ?C (97.6 ?F) 10/09/24 1545 Pulse 90 10/09/24 1630 Resp 22 10/09/24 1630 SpO2 92 % 10/09/24 1630 Anesthesia Post Evaluation Patient location during evaluation: PACU Patient participation: complete - patient participated Level of consciousness: awake and alert Pain score: 2 Pain management: adequate Multimodal analgesia pain management approach Airway patency: patent Two or more strategies used to mitigate risk of obstructive sleep apnea Cardiovascular status: acceptable and hemodynamically unstable (ICU consult. concern for septic shock. Admitting to ICU) Respiratory status: face mask and spontaneous ventilation Hydration status: acceptable No notable events documented. MIPS #430 PONV Patient received an inhalational anesthetic (4554F) Patient exhibits three or more risk factors for PONV (4556F) Patient received at leaset 2 prophylactic Rx PONV anti-emtic agents of different classes preop and/or intraop (G9775) MIPS # 424 Perioperative Temperature Management Anesthesia time was less than 60 minutes (4256F) MIPS #477 Multimodal Pain Management Emergent case Exlusion- Stop here (M1142) MIPS #404 Anesthesiology Smoking Abstinence The patient is a current smoker (G9642) (e.g. cigarette, cigar, pipe, e-cigarette/vaping/marijuana) The patient did not have an elective surgery or procedure requiring anesthesia (YY404) I completed my handoff to the receiving clinician during which we: 1. Identified the patient 2. Identified the responsible provider 3. Reviewed the pertinent medical history 4. Discussed the surgical course 5. Reviewed intra-op anesthesia management and issues during anesthesia 6. Set expectations for post-procedure period 7. Allowed opportunity for questions and acknowledgement of understanding.[facility]03-25-2025 Radiology Diagnostic study note [facility] Imaging Services [address] [place] [address] FNA 1st Biopsy w/ US MR#: [id number] Acct: [id number] Name: KARINA FERNANDO Rep #: [id number] : 1950 F 73 From: Jonas James MD PCP: Dr. Tu Hector DO Status: REG CLI Study:FNA 1st Biopsy w/ US Date of Exam: 10/10/24 Exam# [id number] Ordering Dr: Jackelyn Hector DO EXAM: Ultrasound guided right thyroid biopsy. CLINICAL HISTORY: Multinodular goiter. Request for tissue sampling of 1 lower pole nodule in the right COMPARISON: Images from a recent outside ultrasound exam with report were 1st reviewed. TECHNIQUE: See below. FINDINGS: Informed consent was obtained. Preliminary ultrasound evaluation revealed diffuse enlarged bilateral multinodular goiter. Lower pole nodule was targeted as per request. Direct sonographic guidance and aseptic technique were utilized. Pass was made directly into 1 lower pole nodule as previously designated and under real-time visualization using multi sampling technique multiple areas within the nodule were sampled on the single needle puncture. Obtained was examined immediately on site by the pathologist and found to be satisfactory. Patient tolerated the procedure well and was discharged directly to home. US/FNA 1st Biopsy w/ US IMPRESSION: Uneventful ultrasound-guided right thyroid biopsy. Multinodular goiter is noted. Reading Location: [facility] CC: Dr. Tu Hector, DO ~ Steeping Press Tender: Signed [facility]03-24-2025 NoteAirway Date/Time: 10/09/2024 2:43 PM Urgency: scheduled Airway not difficult General Information and Staff Patient location during procedure: Procedural Resident/SEMICONDUCTOR BONDER: Mello Schneider CRNA Performed: SEMICONDUCTOR BONDER Indications and Patient Condition Indications for airway management: anesthesia Sedation level: Asleep Preoxygenated: yes Patient position: sniffing MILS maintained throughout Mask difficulty assessment: 0 - not attempted Final Airway Details Final airway type: endotracheal airway Successful airway: ETT Cuffed: yes Successful intubation technique: direct laryngoscopy Endotracheal tube insertion site: oral Blade: Avendaño Blade size: #3 ETT size (mm): 9.0 Cormack-Lehane Classification: grade I - full view of glottis Placement verified by: chest auscultation and capnometry Measured from: lips ETT to lips (cm): 22 Number of attempts at approach: 1 Ventilation between attempts: none Number of other approaches attempted: [address] [place], [place] [id number] Note [facility] Name: Karina Fernando Procedure Date: 10/09/2024 2:23 PM Gender: Female Date of : 1950 Age: 73 Admit Type: Outpatient Note Status: Finalized Attending MD: Cain Mejia MD, [id number] Procedure: Bronchoscopy Indications: Left hilar mass Findings: Right Lung Abnormalities: One small non-obstructing nodule was found in the right lower lobe. Left Lung Abnormalities: An area of friable mucosa was found in the left mainstem bronchus. Fresh blood was found in the left mainstem bronchus. The bleeding site was identified. Extrinsic compression was found in the left mainstem bronchus. The airway lumen is nearly occluded. The lesion was successfully traversed. Transbronchial brushings of a nodule were obtained in the right lower lobe with a cytology brush and sent for routine cytology. One sample was obtained. The sampling device penetrated the full thickness of the bronchial wall in order to reach the sampling site. An endobronchial biopsy of a nodule was performed in the right lower lobe using a forceps and sent for histopathology examination. One sample was obtained. An endobronchial ultrasound endoscope was utilized in order to assist with fine needle aspiration in the left and right paratracheal and subcarinal areas, in the right hilum and in the left hilum. Transbronchial needle aspirations were performed in the right paratracheal area, in the left paratracheal area, in the subcarinal area, in the right hilum and in the left hilum using a [employer] Expect 25 gauge needle and sent for routine cytology. The procedure was guided by ultrasound. The sampling device penetrated the full thickness of the bronchial wall in order to reach the sampling site. Five samples were obtained. The bronchoscope was advanced until wedged at the desired location for bronchoalveolar lavage. BAL was performed in the left upper lobe of the lung and sent for routine cytology and bacterial, AFB and fungal analysis. 60 mL of fluid were instilled. 40 mL were returned. The return was bloody. There were no mucoid plugs in the return fluid. Impression: - Left hilar mass - One nodule was found in the right lower lobe. - Friable mucosa was found in the left mainstem bronchus. - Blood was present in the left mainstem bronchus. The bleeding site was identified. - Extrinsic compression was found in the left mainstem bronchus secondary to posterior mass effect. - Transbronchial brushings were obtained. - An endobronchial biopsy was performed. - Endobronchial ultrasound was performed. - A transbronchial needle aspiration was performed. - Bronchoalveolar lavage was performed. Recommendation: - Await BAL, biopsy, brushing, culture and cytology results. Referring MD: Tu Hector Medicines: General Anesthesia, Epinephrine 1 mg/10 mL topical 10 mL Procedure: Pre-Anesthesia Assessment: - A History and Physical has been performed. The patient's medications, allergies and sensitivities have been reviewed. - ASA Grade Assessment: II - A patient with mild systemic disease. - The anesthesia plan was to use general anesthesia. After I obtained informed consent, the scope was passed under direct vision. Throughout the procedure, the patient's blood pressure, pulse, and oxygen saturations were monitored continuously. The Bronchoscope was introduced through the mouth, via the endotracheal tube (the patient was intubated for the procedure) and advanced to the tracheobronchial tree of both lungs. The Bronchoscope was introduced through the mouth, via the endotracheal tube (the patient was intubated for the procedure) and advanced to the tracheobronchial tree of both lungs. The procedure was accomplished without difficulty. The patient tolerated the procedure well. Complications: No immediate complications. Estimated blood loss: Minimal Procedure Code(s): --- Professional --- 82266, Bronchoscopy, rigid or flexible, including fluoroscopic guidance, when performed; with transbronchial needle aspiration biopsy(s), trachea, main stem and/or lobar bronchus(i) 55267, 59, Bronchoscopy, rigid or flexible, including fluoroscopic guidance, when performed; with bronchial or endobronchial biopsy(s), single or multiple sites 68037, Bronchoscopy, rigid or flexible, including fluoroscopic guidance, when performed; with bronchial alveolar lavage 83868, Bronchoscopy, rigid or flexible, including fluoroscopic guidance, when performed; with brushing or protected brushings 15380, Bronchoscopy, rigid or flexible, including fluoroscopic guidance, when performed; with transendoscopic endobronchial ultrasound (EBUS) during bronchoscopic diagnostic or therapeutic intervention(s) for peripheral lesion(s) (List separately in addition to code for primary procedure[s]) Diagnosis Code(s): --- Profession (more content not included)...[facility]03-24-2025 Procedure note* Op Note - Cain Mejia MD - 10/09/2024 2:23 PM EDT [facility] Name: Karina Fernando Procedure Date: 10/09/2024 2:23 PM Gender: Female Date of : 1950 Age: 73 Admit Type: Outpatient Note Status: Finalized Attending MD: Cain Mejia MD, [id number] Procedure: Bronchoscopy Indications: Left hilar mass Findings: Right Lung Abnormalities: One small non-obstructing nodule was found in the right lower lobe. Left Lung Abnormalities: An area of friable mucosa was found in the left mainstem bronchus. Fresh blood was found in the left mainstem bronchus. The bleeding site was identified. Extrinsic compression was found in the left mainstem bronchus. The airway lumen is nearly occluded. The lesion was successfully traversed. Transbronchial brushings of a nodule were obtained in the right lower lobe with a cytology brush and sent for routine cytology. One sample was obtained. The sampling device penetrated the full thickness of the bronchial wall in order to reach the sampling site. An endobronchial biopsy of a nodule was performed in the right lower lobe using a forceps and sent for histopathology examination. One sample was obtained. An endobronchial ultrasound endoscope was utilized in order to assist with fine needle aspiration in the left and right paratracheal and subcarinal areas, in the right hilum and in the left hilum. Transbronchial needle aspirations were performed in the right paratracheal area, in the left paratracheal area, in the subcarinal area, in the right hilum and in the left hilum using a [employer] Expect 25 gauge needle and sent for routine cytology. The procedure was guided by ultrasound. The sampling device penetrated the full thickness of the bronchial wall in order to reach the sampling site. Five samples were obtained. The bronchoscope was advanced until wedged at the desired location for bronchoalveolar lavage. BAL was performed in the left upper lobe of the lung and sent for routine cytology and bacterial, AFB and fungal analysis. 60 mL of fluid were instilled. 40 mL were returned. The return was bloody. There were no mucoid plugs in the return fluid. Impression: - Left hilar mass - One nodule was found in the right lower lobe. - Friable mucosa was found in the left mainstem bronchus. - Blood was present in the left mainstem bronchus. The bleeding site was identified. - Extrinsic compression was found in the left mainstem bronchus secondary to posterior mass effect. - Transbronchial brushings were obtained. - An endobronchial biopsy was performed. - Endobronchial ultrasound was performed. - A transbronchial needle aspiration was performed. - Bronchoalveolar lavage was performed. Recommendation: - Await BAL, biopsy, brushing, culture and cytology results. Referring MD: Tu Hector Medicines: General Anesthesia, Epinephrine 1 mg/10 mL topical 10 mL Procedure: Pre-Anesthesia Assessment: - A History and Physical has been performed. The patient's medications, allergies and sensitivities have been reviewed. - ASA Grade Assessment: II - A patient with mild systemic disease. - The anesthesia plan was to use general anesthesia. After I obtained informed consent, the scope was passed under direct vision. Throughout the procedure, the patient's blood pressure, pulse, and oxygen saturations were monitored continuously. The Bronchoscope was introduced through the mouth, via the endotracheal tube (the patient was intubated for the procedure) and advanced to the tracheobronchial tree of both lungs. The Bronchoscope was introduced through the mouth, via the endotracheal tube (the patient was intubated for the procedure) and advanced to the tracheobronchial tree of both lungs. The procedure was accomplished without difficulty. The patient tolerated the procedure well. Complications: No immediate complications. Estimated blood loss: Minimal Procedure Code(s): --- Professional --- 46823, Bronchoscopy, rigid or flexible, including fluoroscopic guidance, when performed; with transbronchial needle aspiration biopsy(s), trachea, main stem and/or lobar bronchus(i) 35011, 59, Bronchoscopy, rigid or flexible, including fluoroscopic guidance, when performed; with bronchial or endobronchial biopsy(s), single or multiple sites 07548, Bronchoscopy, rigid or flexible, including fluoroscopic guidance, when performed; with bronchial alveolar lavage 24637, Bronchoscopy, rigid or flexible, including fluoroscopic guidance, when performed; with brushing or protected brushings 38026, Bronchoscopy, rigid or flexible, including fluoroscopic guidance, when performed; with transendoscopic endobronchial ultrasound (EBUS) during bronchoscopic diagnostic or therapeutic intervention(s) for peripheral lesion(s) (List separately in addition to code for primary procedure[s]) Diagnosis Code(s): --- Professional --- R91.8, Other nonspecific abnormal finding of lung field J98.4, Other disorders of lung J98.09, Other diseases of bronchus, not elsewhere classified R04.2, Hemoptysis CPT copyright 2021 [employer]. All rights reserved. The codes documented in this report are preliminary and upon school business manager review may be revised to meet current compliance requirements. Attending Participation: I personally performed the entire procedure. Cain Mejia MD 10/09/2024 3:46:37 PM This report has been signed electronically. Number of Addenda: 0 Note Initiated On: 10/09/2024 2:23 PM [id number] Miscellaneous Notes* Op Note - Cain Mejia MD - 10/09/2024 2:23 PM EDT [facility] Name: Karina Fernando Procedure Date: 10/09/2024 2:23 PM Gender: Female Date of : 1950 Age: 73 Admit Type: Outpatient Note Status: Finalized Attending MD: Cain Mejia MD, [id number] Procedure: Bronchoscopy Indications: Left hilar mass Findings: Right Lung Abnormalities: One small non-obstructing nodule was found in the right lower lobe. Left Lung Abnormalities: An area of friable mucosa was found in the left mainstem bronchus. Fresh blood was found in the left mainstem bronchus. The bleeding site was identified. Extrinsic compression was found in the left mainstem bronchus. The airway lumen is nearly occluded. The lesion was successfully traversed. Transbronchial brushings of a nodule were obtained in the right lower lobe with a cytology brush and sent for routine cytology. One sample was obtained. The sampling device penetrated the full thickness of the bronchial wall in order to reach the sampling site. An endobronchial biopsy of a nodule was performed in the right lower lobe using a forceps and sent for histopathology examination. One sample was obtained. An endobronchial ultrasound endoscope was utilized in order to assist with fine needle aspiration in the left and right paratracheal and subcarinal areas, in the right hilum and in the left hilum. Transbronchial needle aspirations were performed in the right paratracheal area, in the left paratracheal area, in the subcarinal area, in the right hilum and in the left hilum using a [employer] Expect 25 gauge needle and sent for routine cytology. The procedure was guided by ultrasound. The sampling device penetrated the full thickness of the bronchial wall in order to reach the sampling site. Five samples were obtained. The bronchoscope was advanced until wedged at the desired location for bronchoalveolar lavage. BAL was performed in the left upper lobe of the lung and sent for routine cytology and bacterial, AFB and fungal analysis. 60 mL of fluid were instilled. 40 mL were returned. The return was bloody. There were no mucoid plugs in the return fluid. Impression: - Left hilar mass - One nodule was found in the right lower lobe. - Friable mucosa was found in the left mainstem bronchus. - Blood was present in the left mainstem bronchus. The bleeding site was identified. - Extrinsic compression was found in the left mainstem bronchus secondary to posterior mass effect. - Transbronchial brushings were obtained. - An endobronchial biopsy was performed. - Endobronchial ultrasound was performed. - A transbronchial needle aspiration was performed. - Bronchoalveolar lavage was performed. Recommendation: - Await BAL, biopsy, brushing, culture and cytology results. Referring MD: Tu Hector Medicines: General Anesthesia, Epinephrine 1 mg/10 mL topical 10 mL Procedure: Pre-Anesthesia Assessment: - A History and Physical has been performed. The patient's medications, allergies and sensitivities have been reviewed. - ASA Grade Assessment: II - A patient with mild systemic disease. - The anesthesia plan was to use general anesthesia. After I obtained informed consent, the scope was passed under direct vision. Throughout the procedure, the patient's blood pressure, pulse, and oxygen saturations were monitored continuously. The Bronchoscope was introduced through the mouth, via the endotracheal tube (the patient was intubated for the procedure) and advanced to the tracheobronchial tree of both lungs. The Bronchoscope was introduced through the mouth, via the endotracheal tube (the patient was intubated for the procedure) and advanced to the tracheobronchial tree of both lungs. The procedure was accomplished without difficulty. The patient tolerated the procedure well. Complications: No immediate complications. Estimated blood loss: Minimal Procedure Code(s): --- Professional --- 55440, Bronchoscopy, rigid or flexible, including fluoroscopic guidance, when performed; with transbronchial needle aspiration biopsy(s), trachea, main stem and/or lobar bronchus(i) 28116, 59, Bronchoscopy, rigid or flexible, including fluoroscopic guidance, when performed; with bronchial or endobronchial biopsy(s), single or multiple sites 42102, Bronchoscopy, rigid or flexible, including fluoroscopic guidance, when performed; with bronchial alveolar lavage 54358, Bronchoscopy, rigid or flexible, including fluoroscopic guidance, when performed; with brushing or protected brushings 77735, Bronchoscopy, rigid or flexible, including fluoroscopic guidance, when performed; with transendoscopic endobronchial ultrasound (EBUS) during bronchoscopic diagnostic or therapeutic intervention(s) for peripheral lesion(s) (List separately in addition to code for primary procedure[s]) Diagnosis Code(s): --- Professional --- R91.8, Other nonspecific abnormal finding of lung field J98.4, Other disorders of lung J98.09, Other diseases of bronchus, not elsewhere classified R04.2, Hemoptysis CPT copyright 2021 [employer]. All rights reserved. The codes documented in this report are preliminary and upon school business manager review may be revised to meet current compliance requirements. Attending Participation: I personally performed the entire procedure. Cain Mejia MD 10/09/2024 3:46:37 PM This report has been signed electronically. Number of Addenda: 0 Note Initiated On: 10/09/2024 2:23 PM documented in this [facility]03-24-2025 History and physical note* Cain Mejia MD - 10/09/2024 2:11 PM EDT Chief Complaint: left hilar mass History of Present Illness: HPI 73 y/o female here for bronchoscopy to evaluate a left hilar mass. 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 Spondylolisthesis, lumbar region Social History: Social History Socioeconomic History Marital status: Tobacco Use Smoking status: Former Average packs/day: 1 pack/day for 51.9 years (51.9 ttl pk-yrs) Types: Cigarettes Start date: 1972 Passive exposure: Past Smokeless tobacco: Never Vaping Use Vaping status: Never Used Substance and Sexual Activity Alcohol use: Not Currently Drug use: Never Comment: caffeine: 2 cups of coffee per day, 2 small cans of diet soda Family History: Family History Problem Relation Name Age of Onset Cancer Mother Cancer Father No Known Problems Sister No Known Problems Brother Heart disease Brother ROS: Review of Systems Respiratory: Positive for shortness of breath. All other systems reviewed and are negative. Medications: No current facility-administered medications for this encounter. Allergies: Allergies Allergen Reactions Alendronate Muscle ache, Swelling / lump finding Cefaclor Hives Erythromycin Nausea And Vomiting Erythromycin Base Nausea Only Famciclovir Hives Gabapentin Unknown Morphine Nausea And Vomiting Penicillins Hives Tramadol Hives, Itching and Nausea And Vomiting Hydrochlorothiazide W-Triamterene Rash Physical Exam: BP Temp Pulse Resp SpO2 BP 133/79 Pulse 105 Temp 36.4 C (97.6 F) (Temporal) Resp 18 Ht 5' 3 (1.6 m) Wt 163 lb (73.9 kg) SpO2 93% BMI 28.87 kg/m Physical Exam Constitutional: General: She is not in acute distress. Cardiovascular: Rate and Rhythm: Tachycardia present. Pulmonary: Effort: Pulmonary effort is normal. Neurological: General: No focal deficit present. Mental Status: She is alert and oriented to person, place, and time. Psychiatric: Mood and Affect: Mood normal. Behavior: Behavior normal. Assessment and Plan: Left hilar lung mass. Plan bronchoscopy for airway exam, possible endobronchial sampling, BAL. EBUS for evaluation of lymph nodes, sampling/staging, sampling of hilar mass. [employer] Work Phone: [phone]) 301-446603-24-2025 NoteChief Complaint: left hilar mass History of Present Illness: HPI 73 y/o female here for bronchoscopy to evaluate a left hilar mass. 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 Spondylolisthesis, lumbar region Social History: Social History Socioeconomic History Marital status: Tobacco Use Smoking status: Former Average packs/day: 1 pack/day for 51.9 years (51.9 ttl pk-yrs) Types: Cigarettes Start date: 1972 Passive exposure: Past Smokeless tobacco: Never Vaping Use Vaping status: Never Used Substance and Sexual Activity Alcohol use: Not Currently Drug use: Never Comment: caffeine: 2 cups of coffee per day, 2 small cans of diet soda Family History: Family History Problem Relation Name Age of Onset Cancer Mother Cancer Father No Known Problems Sister No Known Problems Brother Heart disease Brother ROS: Review of Systems Respiratory: Positive for shortness of breath. All other systems reviewed and are negative. Medications: No current facility-administered medications for this encounter. Allergies: Allergies Allergen Reactions Alendronate Muscle ache, Swelling / lump finding Cefaclor Hives Erythromycin Nausea And Vomiting Erythromycin Base Nausea Only Famciclovir Hives Gabapentin Unknown Morphine Nausea And Vomiting Penicillins Hives Tramadol Hives, Itching and Nausea And Vomiting Hydrochlorothiazide W-Triamterene Rash Physical Exam: BP Temp Pulse Resp SpO2 BP 133/79 Pulse 105 Temp 36.4 ?C (97.6 ?F) (Temporal) Resp 18 Ht 5' 3 (1.6 m) Wt 163 lb (73.9 kg) SpO2 93% BMI 28.87 kg/m? Physical Exam Constitutional: General: She is not in acute distress. Cardiovascular: Rate and Rhythm: Tachycardia present. Pulmonary: Effort: Pulmonary effort is normal. Neurological: General: No focal deficit present. Mental Status: She is alert and oriented to person, place, and time. Psychiatric: Mood and Affect: Mood normal. Behavior: Behavior normal. Assessment and Plan: Left hilar lung mass. Plan bronchoscopy for airway exam, possible endobronchial sampling, BAL. EBUS for evaluation of lymph nodes, sampling/staging, sampling of hilar mass. [facility]03-24-2025 History and physical note* Cain Mejia MD - 10/09/2024 2:11 PM EDT Chief Complaint: left hilar mass History of Present Illness: HPI 73 y/o female here for bronchoscopy to evaluate a left hilar mass. 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 Spondylolisthesis, lumbar region Social History: Social History Socioeconomic History Marital status: Tobacco Use Smoking status: Former Average packs/day: 1 pack/day for 51.9 years (51.9 ttl pk-yrs) Types: Cigarettes Start date: 1972 Passive exposure: Past Smokeless tobacco: Never Vaping Use Vaping status: Never Used Substance and Sexual Activity Alcohol use: Not Currently Drug use: Never Comment: caffeine: 2 cups of coffee per day, 2 small cans of diet soda Family History: Family History Problem Relation Name Age of Onset Cancer Mother Cancer Father No Known Problems Sister No Known Problems Brother Heart disease Brother ROS: Review of Systems Respiratory: Positive for shortness of breath. All other systems reviewed and are negative. Medications: No current facility-administered medications for this encounter. Allergies: Allergies Allergen Reactions Alendronate Muscle ache, Swelling / lump finding Cefaclor Hives Erythromycin Nausea And Vomiting Erythromycin Base Nausea Only Famciclovir Hives Gabapentin Unknown Morphine Nausea And Vomiting Penicillins Hives Tramadol Hives, Itching and Nausea And Vomiting Hydrochlorothiazide W-Triamterene Rash Physical Exam: BP Temp Pulse Resp SpO2 BP 133/79 Pulse 105 Temp 36.4 C (97.6 F) (Temporal) Resp 18 Ht 5' 3 (1.6 m) Wt 163 lb (73.9 kg) SpO2 93% BMI 28.87 kg/m Physical Exam Constitutional: General: She is not in acute distress. Cardiovascular: Rate and Rhythm: Tachycardia present. Pulmonary: Effort: Pulmonary effort is normal. Neurological: General: No focal deficit present. Mental Status: She is alert and oriented to person, place, and time. Psychiatric: Mood and Affect: Mood normal. Behavior: Behavior normal. Assessment and Plan: Left hilar lung mass. Plan bronchoscopy for airway exam, possible endobronchial sampling, BAL. EBUS for evaluation of lymph nodes, sampling/staging, sampling of hilar mass. documented in this [facility]03-24-2025 NotePatient: Karina Fernando Procedure Information Date/Time: 10/09/24 1330 Procedure: ENDOBRONCHIAL ULTRASOUND WITH TRANSBRONCHIAL NEEDLE ASPIRATION. POSSIBLE ENDOBRONCHIAL BIOPSIES, NEEDLE ASPIRATION, AND BRUSHINGS. - Rad, path, total time: 90 min Location: [place] [address] / [facility] Gastroenterology Providers: Cain Mejia MD Relevant Problems Anesthesia (+) History of nicotine use Cardio (+) HLD (hyperlipidemia) GI (+) Hiatal hernia Past Medical History: Past Medical History: No date: Asthma No date: COPD (chronic obstructive pulmonary disease) (HCC) No date: Fracture of ankle No date: Hiatal hernia 08/2024: Hilar mass Comment: 6.2x4.7cm No date: History of nicotine use No date: HLD (hyperlipidemia) No date: Hypertension No date: Mass of soft tissue of upper arm 08/2024: Right atrial mass Comment: 2.0cm x 1.9cm spherical mass No date: Spondylolisthesis, lumbar region Past Surgical History: Past Surgical History: No date: APPENDECTOMY No date: BLEPHAROPLASTY; Bilateral No date: BUNIONECTOMY; Left No date: CARPAL TUNNEL RELEASE; Right No date: LUMBAR FUSION No date: TOTAL KNEE ARTHROPLASTY; Bilateral No date: VAGINAL DELIVERY Comment: 1970 No date: VAGINAL DELIVERY Comment: 1972 Social History: TOBACCO: reports that she has quit smoking. Her smoking use included cigarettes. She started smoking about 52 years ago. She has a 51.9 pack-year smoking history. She has been exposed to tobacco smoke. She has never used smokeless tobacco. ETOH: reports that she does not currently use alcohol. Social History Substance and Sexual Activity Drug Use Never Comment: caffeine: 2 cups of coffee per day, 2 small cans of diet soda Family History: Family History Problem Relation Name Age of Onset ? Cancer Mother ? Cancer Father ? No Known Problems Sister ? No Known Problems Brother ? Heart disease Brother Screening: unknown Clinical information reviewed: Tobacco Allergies Meds Med Hx Surg Hx Fam Hx Soc Hx Physical Exam Airway Mallampati: II Neck ROM: full Mouth Open: normal Cardiovascular Dental Pulmonary Abdominal Anesthesia Plan patient is NPO appropriate Any family history or previous problems with anesthesia no ASA 3 general Any family history or previous problems with anesthesia no The patient is not a current smoker. Anesthetic plan and risks discussed with patient. VIANNEY Screening Labs: Lab Results Component Value Date WBC 3.5 (L) 10/06/2024 HGB 11.0 (L) 10/06/2024 HCT 34.4 (L) 10/06/2024 MCV 80.9 10/06/2024 PLT 226 10/06/2024 Lab Results Component Value Date NA 141 10/06/2024 K 3.3 (L) 10/06/2024 CL 106 10/06/2024 CO2 27 10/06/2024 BUN 8 (L) 10/06/2024 CREATININE 0.83 10/06/2024 GLUCOSE 92 10/06/2024 CALCIUM 9.0 10/06/2024 PROT 6.2 (L) 10/06/2024 ALKPHOS 45 10/06/2024 AST 17 10/06/2024 ALT 9 10/06/2024 EGFR 75.0 10/06/2024 Pain Score: 7 No echocardiogram results found for the past 14 days No results found for this or any previous visit. Equipment Requests: [facility] Plan of care note * Care Plan - Dannielle Lawson RN - 10/06/2024 5:09 PM EDT Patient discharged Problem: Pain - Adult Goal: Verbalizes/displays adequate comfort level or baseline comfort level Outcome: Completed Problem: Safety - Adult Goal: Free from fall injury Outcome: Completed Problem: Discharge Planning Goal: Discharge to home or other facility with appropriate resources Outcome: Completed Problem: Chronic Conditions and Co-morbidities Goal: Patient's chronic conditions and co-morbidity symptoms are monitored and maintained or improved Outcome: [id number] Miscellaneous Notes* Care Plan - Dannielle Lawson RN - 10/06/2024 5:09 PM EDT Patient discharged Problem: Pain - Adult Goal: Verbalizes/displays adequate comfort level or baseline comfort level Outcome: Completed Problem: Safety - Adult Goal: Free from fall injury Outcome: Completed Problem: Discharge Planning Goal: Discharge to home or other facility with appropriate resources Outcome: Completed Problem: Chronic Conditions and Co-morbidities Goal: Patient's chronic conditions and co-morbidity symptoms are monitored and maintained or improved Outcome: Completed * Care Coordination - Lisandra Thibodeaux RN - 10/06/2024 12:55 PM EDT Pt adm for tx/ eval of SOB- found to have pleural effusion. RA currently. US guided thoracentesis, XR chest and barium swallow completed. Spoke with pt and family, introduced self and roll. Pt plans to return home- no needs. * Care Plan - Pravin Duval RN - 10/06/2024 1:01 AM EDT Problem: Pain - Adult Goal: Verbalizes/displays adequate comfort level or baseline comfort level Outcome: Progressing Problem: Safety - Adult Goal: Free from fall injury Outcome: Progressing documented in this [facility]03-21-2025 [id number]] Respiratory Therapy Home O2 Progress Note O2 saturation at rest on room air: 90% (If resting saturation was 88% or less, enter NA for the next two values) O2 saturation with exertion on room air: 86% (NA if not evaluated) O2 saturation on O2 at 2 LPM with exertion: 94% (NA if not evaluated) Patient meets criteria for home O2 Y/N = Y Patient mobile at home Y/N = Y DME Notified Y [facility]03-21-2025 History of Present illness Narrative* Sean Chen RRT - 10/06/2024 3:30 PM EDT Images from the original note were not included. [email or web address][[id number]] Respiratory Therapy Home O2 Progress Note O2 saturation at rest on room air: 90% (If resting saturation was 88% or less, enter NA for the next two values) O2 saturation with exertion on room air: 86% (NA if not evaluated) O2 saturation on O2 at 2 LPM with exertion: 94% (NA if not evaluated) Patient meets criteria for home O2 Y/N = Y Patient mobile at home Y/N = Y DME Notified Y * Emile Horne DO - 10/06/2024 3:06 PM EDT Patient chart is reviewed. Currently rounding. Full note to follow. * Brendan Thao PT - 10/06/2024 12:39 PM EDT Images from the original note were not included. PHYSICAL THERAPY [facility] Initial Evaluation Name/MRN: Karina Fernando ([id number]) Evaluation Date: 10/06/2024 Date of : 1950 Admission Date: 10/05/2024 8:10 PM Age: 73 y.o. [facility]Bed: [facility] Discharge Recommendation: Home with Home health PT Assessment IMPRESSION: Karina is a 73 y.o. female with past medical history of COPD previous smoker, asthma, Hiatal hernia, Recent discovery of lung mass and thyroid nodules. ADVISORY APPLICATION DEVELOPER pt IND without device. Pt reports mobility has become more difficult due to shortness of breath and intermittent dizziness. Pt denies room spinning sensation or increase in dizziness with positional changes. Upon evaluation family present and supportive. Pt ambulating 50ft without device with SUP. IND for bed mobility and functional transfers. Pt would benefit from Home PT to improve functional endurance and balance. Admitting Diagnosis: Pleural Effusion Prognosis: excellent Performance Deficits /Impairments: Decreased Endurance and Decreased Balance Decision Making: Medium Complexity Subjective Name and of pt verified. Pt agreeable to PT Eval and treatment Pain: RN managing pain. 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 Admission Diagnosis: Patient Active Problem List Diagnosis Date Noted Pleural effusion 10/05/2024 HLD (hyperlipidemia) History of nicotine use Hiatal hernia Hilar mass 08/19/2024 Right atrial mass 08/2024 Adenopathy 10/05/2024 Lung mass 10/05/2024 Medical Precautions: No active isolations Proper PPE donned/doffed in accordance with facility standards. Fall Risk: Andre Fall Risk Score: 35 (Medium Risk) Precautions/Restrictions: N/A Family/Caregiver Present: child(raven) Overall Cognitive Status: WNL Overall Orientation Status: Oriented x4 Vision: Not Assessed Hearing: normal Social/Functional History Patient admitted from home. Lives With: Alone Type of Home: single family home Home Layout: Two Level Home Home Access: Stairs to Enter with Rails (# of stairs: 6+6) Homemaking Responsibilities: Independent Receives Help From: Family Active Mobile Sales Consultant: Prior Level of Function IND with mobility without device Objective Lower Extremity Assessment AROM: WNL PROM: WNL Strength: WNL Sensation: WNL Balance: Not assessed this session Bed Mobility: Supine to sit: Independent Sit to supine: Independent Transfers Sit to stand: Independent Stand to sit: Independent Ambulation Pt ambulates 50ft with multiple turns without device with SBA. As pt becomes more fatigued STRUCTURAL WELDER provided due to increased lateral sway. Verbal cues for pursed lip breathing Outcome Measures AM-PAC How much HELP from another person do you currently need Turning from your back to your side while in a flat bed without using bedrails?: None Moving from lying on your back to sitting on the side of a flat bed without using bedrails?: None Moving to and from a bed to a chair (including a wheelchair)?: None Standing up from a chair using your arms (wheelchair or bedside chair)?: None Walking in a hospital room?: None Stair climbing assessed?: No AM-PAC Inpatient Mobility Raw Score (No Stairs) : 20 JH-HLM -HLM Score: Walked 25 ft or more (i.e. walked outside of room) Plan Pt would benefit from skilled acute PT services to address Strengthening, Gait Training, Balance Training, Functional Mobility Training, Endurance Training, and Stair Training. Frequency: 3x/week for 2 weeks Barriers: Decreased endurance Safety/Education Safety Safety Devices in place: call light within reach and left in bed Restraints: N/A Education Pt educated on benefit of Home PT Goals Patient Stated Goal: catch my breathe Encounter Problems Encounter Problems (Active) Mobility Patient will ambulate 150 feet with modified independence and least restrictive device in order to improve safety and independence with mobility. Start: 10/06/24 Expected End: 10/27/24 Patient will ascend and descend 6 stairs with least restrictive device and independence in order tosafely negotiate home. Start: 10/06/24 Expected End: 10/27/24 Pain - Adult Therapy Time Individual Co-Treatment Co-Evaluation Time In 1205 Time Out 1220 Minutes 15 Brendan Thao PT Patient's Physical Therapy Plan of Care supervision is transferred to a [facility] Therapy Services Physical Therapist. Goals and/or treatment plan was established in collaboration with patient/family/other representatives. * Chrais Barron CCC-HAT RENOVATOR - 10/06/2024 8:43 AM EDT Images from the original note were not included. Speech-Language Pathology SPEECH LANGUAGE PATHOLOGY [facility] Modified Barium Swallow Study Patient Name: Karina Fernando Evaluation Date: 10/06/2024 Date of : 1950 Admission Date: 10/05/2024 8:10 PM Age: 73 y.o. Room[facility]: [facility] IMPRESSION: The patient presents with mild oral phase dysphagia associated with limited dentition. There is no pharyngeal phase dysphagia. There was no laryngeal penetration or aspiration observed. RECOMMENDATION: Recommend Regular solids and Thin liquids and meds as tolerated and the following precautions: - Upright positioning for all PO intake - Small bites/sips Penetration-Aspiration Scale: 1. No contrast enters the airway. No further skilled HAT RENOVATOR indicated at this time. Please reconsult should changes occur. General Initial MBS completed to assess the efficiency of her swallow function, rule out aspiration, and make recommendations regarding safe dietary consistencies, effective compensatory strategies, and safeeating environment. Subjective: Patient alert and cooperative for evaluation. States she occasionally has trouble with solids, takes small bites which helps. She denies difficulty with liquids or medications. Patient very pleasant and with excellent direction following and participation. Radiologist: Dr. Lorenz/DEANDRE Bridges Prior MBSS?: No Baseline Diet: Regular Current diet: Dietary Orders (From admission, onward) Start Ordered 10/09/24 0001 NPO diet with enteral medications Diet effective midnight Question Answer Comment Medications? with enteral medications NPO except: Sips of Water 10/05/24200910/09/24 0001 NPO diet with enteral medications Diet effective midnight Question Answer Comment Medications? 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 Admission Diagnosis: Patient Active Problem List Diagnosis Date Noted Pleural effusion 10/05/2024 HLD (hyperlipidemia) History of nicotine use Hiatal hernia Hilar mass 08/19/2024 Right atrial mass 08/2024 Adenopathy 10/05/2024 Lung mass 10/05/2024 Pain: Pt denies any current pain. Reason for current admission: Karina is a 73 y.o. female with past medical history of COPD previous smoker, asthma, Hiatal hernia, Recent discovery of lung mass and thyroid nodules - with EBUS and thyroid biopsy scheduled in the next week, PET scan and other work up. She presented to [place] ED - with worsening left shoulder, back and lung pain, also describes lightheadedness when going for sit to stand. She states that lately she has been having voice changes and difficulties swallowing with both liquid and solids, and has noticed some swelling - small lumps that come and go in her neck this all started In February. She feels that she has a worsening headache - which she attributes to all the cough she has done, She has a sensation of vertigo with a ringing in her left ear and sensation of falling to the left side. She was found to have a large left sided pleural effusion and was sent in for management to [facility]. She has a history of hiatal hernia and takes Protonix for heartburn once daily in the morning. She takes stool softeners daily, trazadone and melatonin to sleep She reports swelling in her legs sinceher thirties, which worsens with standing or hanging legs. The patient denies diarrhea, constipation, blood in urine or stools, difficulties urinating, burning, stinging, or recent weight changes. VS on arrival P 90, T 36.2, RR 18, BP 119/86, SpOw 93%, Unable to obtain labs and imaging from [place] - Was told she has a complete white out of her left lung field. Oral Phase Patient presents with adequate oral receipt of each bolus. There was no anterior bolus loss. There was appropriate bolus containment for each tested texture in the oral cavity. Mastication appeared complete but mildly prolonged given limited dentition - patient has dentures but states she cannot wear them when she's like this. Oral transit time was functional. There was no oral residue. Pharyngeal Phase Patient revealed timely swallow onset. Pharyngeal wall and tongue base strength were adequate, epiglottic deflection was complete, and hyolaryngeal elevation/excursion were adequate. No laryngeal penetration or aspiration was visualized during this evaluation. No pharyngeal residue. Esophageal Phase The esophagus was not visualized below the level of the UES. Noted: transit through the upper esophagus appeared mildly slowed, but ultimately functional Education The preliminary results of this evaluation were briefly shared with the patient. Goals Patient Stated Goal: To have some coffee Therapy Time HAT RENOVATOR Individual Minutes Time In: 0840 Time Out: 0900 Minutes: 20 YOANA Jean documented in this [facility]03-21-2025 NoteHospitalist Discharge Summary Karina Fernando : 1950 Admit date: 10/05/2024 Discharge date: 10/06/2024 Admitting Physician: Emile Horne DO Primary Care Physician: TU HECTOR DO Visit Status: OBS Code Status: Full Code Acute, acute on chronic, unstable/uncontrolled chronic problems/discharge diagnoses: Large left lung mass causing near complete atelectasis>>scheduled bronchoscopy for Wednesday Left sided pleural effusion SOB 2/2 above COPD Hypokalemia Stable chronic problems affecting care, new non-acute discharge diagnoses: Former smoker Past Medical History: Diagnosis Date Asthma COPD (chronic obstructive pulmonary disease) (HCC) Fracture of ankle Hiatal hernia Hilar mass 08/2024 6.2x4.7cm History of nicotine use HLD (hyperlipidemia) Hypertension Mass of soft tissue of upper arm 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 female with past medical history of COPD previous smoker, asthma, Hiatal hernia, Recent discovery of lung mass and thyroid nodules - with EBUS and thyroid biopsy scheduled in the next week, PET scan and other work up. She presented to [place] ED - with worsening left shoulder, back and lung pain, also describes lightheadedness when going for sit to stand. She states that lately she has been having voice changes and difficulties swallowing with both liquid and solids, and has noticed some swelling - small lumps that come and go in her neck this all started In February. She feels that she has a worsening headache - which she attributes to all the cough she has done, She has a sensation of vertigo with a ringing in her left ear and sensation of falling to the left side. She was found to have a large left sided pleural effusion and was sent in for management to [facility]. Seen by pulm. Pleural effusion was too small for drainage. Recommend to increase pain medication for better pain control. Home oxygen eval which patient qualified for. See discharge diagnoses list above and medication adjustments below in med rec.The patient is discharged in improved and stable condition. Consults: IP CONSULT TO PULMONOLOGY Discharge Instructions: Diet: General diet Activity: as tolerated Recommended Outpatient Tests: bronchoscopy on Wednesday and follow-up with pulmonary medicine clinic, repeat BMP in 1 week Disposition: Patient discharged in stable condition to Home. Greater than 31 minutes spent discharging the patient and coming up with patient discharge plan. Vitals: BP 110/75 (BP Location: Right arm, Patient Position: Sitting) Pulse (!) 122 Temp 37.1 ?C (98.8 ?F) (Temporal) Resp 18 Wt 154 lb 14.4 oz (70.3 kg) SpO2 93% BMI 27.44 kg/m? Pulse Ox: SpO2 Av.4 % Min: 93 % Max: 98 % Supplemental O2: O2 Flow Rate (L/min): 0 L/min Physical Exam Cardiovascular: Rate and Rhythm: Normal rate. Pulses: Normal pulses. Pulmonary: Effort: Pulmonary effort is normal. Comments: Diminished BS bilaterally Abdominal: General: Bowel sounds are normal. Palpations: Abdomen is soft. LABS: Recent Labs 10/06/24 0439 NA 141 K 3.3* CL 106 CO2 27 BUN 8* CREATININE 0.83 GLUCOSE 92 CALCIUM 9.0 Recent Labs 10/06/24 0439 WBC 3.5* RBC 4.25 HGB 11.0* HCT 34.4* MCV 80.9 MCH 25.9* MCHC 32.0 RDW 18.8* PLT 226 MPV 8.9* Discharge Medications: Medication List START taking these medications acetaminophen 325 MG tablet Commonly known as: Tylenol Take 2 tablets (650 mg) by mouth every 6 hours as needed for mild pain (1-3) or fever (For temp greater than 100.4 F (38 C)) for up to 10 days. oxyCODONE-acetaminophen 7.5-325 MG tablet Commonly known as: Percocet Take 1 tablet by mouth every 6 hours as needed for moderate pain (4-6) for up to 5 days. Replaces: oxyCODONE-acetaminophen 5-325 MG tablet CONTINUE taking these medications albuterol 108 (90 Base) MCG/ACT inhaler Commonly known as: Ventolin HFA Inhale 2 puffs every 4 hours as needed for wheezing or shortness of breath. budesonide-formoterol 80-4.5 MCG/ACT inhaler Commonly known as: Symbicort busPIRone 10 MG tablet Commonly known as: Buspar cholecalciferol 25 MCG (1000 UT) capsule Commonly known as: Vitamin D-3 loratadine 5 MG chewable tablet Commonly known as: Claritin Melatonin 2.5 MG chewable tablet multivitamin capsule OMEGA 3 500 PO traZODone 100 MG tablet Commonly known as: Desyrel valACYclovir 500 MG tablet Commonly known as: Valtrex Vitamin E 268 MG (400 UNIT) capsule STOP taking these medications hydroCHLOROthiazide 25 MG tablet Commonly known as: HYDRODiuril oxyCODONE-acetaminophen 5-325 MG tablet Commonly known as: Percocet Replaced by: oxyCODONE-acetaminophen 7.5-325 MG tablet Where to Get Your Medications These medications were sent to [facility] [address] [place] (more content not included)...[facility]03-21-2025 Hospital Discharge instructions* Discharge Instr - Activity* Emile oHrne DO - 10/06/2024 3:08 PM EDT As tolerated * Attachments The following attachments cannot be sent through Care Everywhere. * Pleural Effusion Discharge Instructions ([place]ian) * Shortness of Breath (Dyspnea) Discharge Instructions ([place]ian) documented in this encounterSChillicothe [id number] Note* Care Coordination - Lisandra Thibodeaux RN - 10/06/2024 12:55 PM EDT Pt adm for tx/ eval of SOB- found to have pleural effusion. RA currently. US guided thoracentesis, XR chest and barium swallow completed. Spoke with pt and family, introduced self and roll. Pt plans to return home- no needs. [id number]* Care Coordination - Lisandra Thibodeaux RN - 10/06/2024 12:55 PM EDT Pt adm for tx/ eval of SOB- found to have pleural effusion. RA currently. US guided thoracentesis, XR chest and barium swallow completed. Spoke with pt and family, introduced self and roll. Pt plans to return home- no needs. [facility] [id number] NotePHYSICAL THERAPY [facility] Initial Evaluation Name/MRN: Karina Fernando ([id number]) Evaluation Date: 10/06/2024 Date of : 1950 Admission Date: 10/05/2024 8:10 PM Age: 73 y.o. Room/Bed: W4-439/W4-439 A Discharge Recommendation: Home with Home health PT Assessment IMPRESSION: Karina is a 73 y.o. female with past medical history of COPD previous smoker, asthma, Hiatal hernia, Recent discovery of lung mass and thyroid nodules. ADVISORY APPLICATION DEVELOPER pt IND without device. Pt reports mobility has become more difficult due to shortness of breath and intermittent dizziness. Pt denies room spinning sensation or increase in dizziness with positional changes. Upon evaluation family present and supportive. Pt ambulating 50ft without device with SUP. IND for bed mobility and functional transfers. Pt would benefit from Home PT to improve functional endurance and balance. Admitting Diagnosis: Pleural Effusion Prognosis: excellent Performance Deficits /Impairments: Decreased Endurance and Decreased Balance Decision Making: Medium Complexity Subjective Name and of pt verified. Pt agreeable to PT Eval and treatment Pain: RN managing pain. 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 Admission Diagnosis: Patient Active Problem List Diagnosis Date Noted Pleural effusion 10/05/2024 HLD (hyperlipidemia) History of nicotine use Hiatal hernia Hilar mass 08/19/2024 Right atrial mass 08/2024 Adenopathy 10/05/2024 Lung mass 10/05/2024 Medical Precautions: No active isolations Proper PPE donned/doffed in accordance with facility standards. Fall Risk: Andre Fall Risk Score: 35 (Medium Risk) Precautions/Restrictions: N/A Family/Caregiver Present: child(raven) Overall Cognitive Status: WNL Overall Orientation Status: Oriented x4 Vision: Not Assessed Hearing: normal Social/Functional History Patient admitted from home. Lives With: Alone Type of Home: single family home Home Layout: Two Level Home Home Access: Stairs to Enter with Rails (# of stairs: 6+6) Homemaking Responsibilities: Independent Receives Help From: Family Active Mobile Sales Consultant: Prior Level of Function IND with mobility without device Objective Lower Extremity Assessment AROM: WNL PROM: WNL Strength: WNL Sensation: WNL Balance: Not assessed this session Bed Mobility: Supine to sit: Independent Sit to supine: Independent Transfers Sit to stand: Independent Stand to sit: Independent Ambulation Pt ambulates 50ft with multiple turns without device with SBA. As pt becomes more fatigued STRUCTURAL WELDER provided due to increased lateral sway. Verbal cues for pursed lip breathing Outcome Measures AM-PAC How much HELP from another person do you currently need Turning from your back to your side while in a flat bed without using bedrails?: None Moving from lying on your back to sitting on the side of a flat bed without using bedrails?: None Moving to and from a bed to a chair (including a wheelchair)?: None Standing up from a chair using your arms (wheelchair or bedside chair)?: None Walking in a hospital room?: None Stair climbing assessed?: No AM-PAC Inpatient Mobility Raw Score (No Stairs) : 20 JH-HLM JH-HLM Score: Walked 25 ft or more (i.e. walked outside of room) Plan Pt would benefit from skilled acute PT services to address Strengthening, Gait Training, Balance Training, Functional Mobility Training, Endurance Training, and Stair Training. Frequency: 3x/week for 2 weeks Barriers: Decreased endurance Safety/Education Safety Safety Devices in place: call light within reach and left in bed Restraints: N/A Education Pt educated on benefit of Home PT Goals Patient Stated Goal: catch my breathe Encounter Problems Encounter Problems (Active) Mobility Patient will ambulate 150 feet with modified independence and least restrictive device in order to improve safety and independence with mobility. Start: 10/06/24 Expected End: 10/27/24 Patient will ascend and descend 6 stairs with least restrictive device and independence in order to safely negotiate home. Start: 10/06/24 Expected End: 10/27/24 Pain - Adult Therapy Time Individual Co-Treatment Co-Evaluation Time In 1205 Time Out 1220 Minutes 15 Brendan Thao, PT Patient's Physical Therapy Plan of Care supervision is transferred to a [facility] Physical Therapist. Goals and/or treatment plan was established in collaboration with patient/family/other representatives.[facility]03-21-2025 Nurse Note* Monico Islas RN - 10/06/2024 8:44 AM EDT Patient arrived to radiology department (dept) for ultrasound (US) guided thoracentesis. Nadege Hardin PA-C present to speak with patient. Informed consent obtained. Patient placed sitting on edge of bed/stretcher Baseline vital signs obtained. The patient does not have enough fluid in the appropriate space to drain safely per the provider noted above during preliminary scan. The ordered procedure isnot able to be completed at this time. Patient taken to next procedure via patient bed. Report given via telephone to Fab Lawson RN. [facility] [id number] Nurse Note* Monico Islas RN - 10/06/2024 8:44 AM EDT Patient arrived to radiology department (dept) for ultrasound (US) guided thoracentesis. Nadege Hardin PA-C present to speak with patient. Informed consent obtained. Patient placed sitting on edge of bed/stretcher Baseline vital signs obtained. The patient does not have enough fluid in the appropriate space to drain safely per the provider noted above during preliminary scan. The ordered procedure isnot able to be completed at this time. Patient taken to next procedure via patient bed. Report given via telephone to Fab Lawson RN. documented in this [facility]03-21-2025 NoteProblem: Pain - Adult Goal: Verbalizes/displays adequate comfort level or baseline comfort level Outcome: Progressing Problem: Safety - Adult Goal: Free from fall injury Outcome: Progressing[facility]03-21-20[facility] Plan of care note* Care Plan - Pravin Duval RN - 10/06/2024 1:01 AM EDT Problem: Pain - Adult Goal: Verbalizes/displays adequate comfort level or baseline comfort level Outcome: Progressing Problem: Safety - Adult Goal: Free from fall injury Outcome: Progressing [facility] [id number] History and physical note* Sushila Tam MD - 10/05/2024 9:39 PM EDT Attending History and Physical Admit Date: 10/05/2024 PCP: TU HECTOR DO CHIEF COMPLAINT: Shortness of breath and left sided chest pain Reason for Admission: Pleural effusion History Obtained From: patient HISTORY OF PRESENT ILLNESS: Karina is a 73 y.o. female with past medical history of COPD previous smoker, asthma, Hiatal hernia,Recent discovery of lung mass and thyroid nodules - with EBUS and thyroid biopsy scheduled in the next week, PET scan and other work up. She presented to [place] ED - with worsening left shoulder, back and lung pain, also describes lightheadedness when going for sit to stand. She states that lately she has been having voice changes and difficulties swallowing with both liquid and solids, and has noticed some swelling - small lumps that come and go in her neck this all started In February. She feels that she has a worsening headache - which she attributes to all the cough she has done, She has a sensation of vertigo with a ringing in her left ear and sensation of falling to the left side. She was found to have a large left sided pleural effusion and was sent in for management to [facility]. She has a history of hiatal hernia and takes Protonix for heartburn once daily in the morning. She takes stool softeners daily, trazadone and melatonin to sleep She reports swelling in her legs sinceher thirties, which worsens with standing or hanging legs. The patient denies diarrhea, constipation, blood in urine or stools, difficulties urinating, burning, stinging, or recent weight changes. VS on arrival P 90, T 36.2, RR 18, BP 119/86, SpOw 93%, Unable to obtain labs and imaging from [place] - Was told she has a complete white out of her left lung field. 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 Social History: Social History Socioeconomic History Marital status: Spouse name: Not on file Number of children: Not on file Years of education: Not on file Highest education level: Not on file Occupational History Not on file Tobacco Use Smoking status: Former Average packs/day: 1 pack/day for 51.9 years (51.9 ttl pk-yrs) Types: Cigarettes Start date: 1972 Passive exposure: Past Smokeless tobacco: Never Vaping Use Vaping status: Never Used Substance and Sexual Activity Alcohol use: Not Currently Drug use: Never Comment: caffeine: 2 cups of coffee per day, 2 small cans of diet soda Sexual activity: Not on file Other Topics Concern Not on file Social History Narrative Not on file Social Drivers of Health Financial Resource Strain: Not on file Food Insecurity: Not on file Transportation Needs: Not on file Physical Activity: Not on file Stress: Not on file Social Connections: Not on file Intimate Partner Violence: Not on file Housing Stability: Not on file Family History: Family History Problem Relation Name Age of Onset Cancer Mother Cancer Father No Known Problems Sister No Known Problems Brother Heart disease Brother Medications Prior to Admission: No current facility-administered medications on file prior to encounter. Current Outpatient Medications on File Prior to Encounter Medication Sig Dispense Refill acetaminophen (Tylenol Extra Strength) 500 MG tablet Take by mouth. albuterol (Ventolin HFA) 108 (90 Base) MCG/ACT inhaler Inhale 2 puffs every 4 hours as needed for wheezing or shortness of breath. 8 g 11 busPIRone (Buspar) 10 MG tablet Take 10 mg by mouth 3 times daily as needed. cetirizine (ZyrTEC) 10 MG tablet Take 10 mg by mouth daily. cholecalciferol (Vitamin D-3) 25 MCG (1000 UT) capsule Take 1,000 Units by mouth daily. Ixjhylftwvb-Aceopabat-Qvmtub (Trelegy Ellipta) 100-62.5-25 MCG/ACT aerosol powder Inhale 1 Inhalation daily. 60 each 5 gabapentin (Neurontin) 300 MG capsule Take 300 mg by mouth 3 times daily. hydroCHLOROthiazide (HYDRODiuril) 25 MG tablet Take 25 mg by mouth daily. loratadine (Claritin) 5 MG chewable tablet Chew 5 mg daily. Melatonin 2.5 MG chewable tablet Chew Daily as needed. meloxicam (Mobic) 15 MG tablet Take by mouth daily. Multiple Vitamin (multivitamin) capsule Take 1 capsule by mouth daily. [place]-3 Fatty Acids (OMEGA 3 500 PO) Take by mouth daily. oxyCODONE-acetaminophen (Percocet) 5-325 MG tablet simvastatin (Zocor) 20 MG tablet Take 20 mg by mouth Nightly. traZODone (Desyrel) 100 MG tablet Take 100 mg by mouth Nightly. valACYclovir (Valtrex) 500 MG tablet Take by mouth daily. Vitamin E 268 MG (400 UNIT) capsule Take by mouth daily. Allergies: Allergies Allergen Reactions Alendronate Muscle ache, Swelling / lump finding Cefaclor Hives Erythromycin Nausea And Vomiting Erythromycin Base Nausea Only Famciclovir Hives Gabapentin Unknown Morphine Nausea And Vomiting Penicillins Hives Tramadol Hives, Itching and Nausea And Vomiting Hydrochlorothiazide W-Triamterene Rash REVIEW OF SYSTEMS: - General: Pain in left shoulder and back around bra line - Respiratory: Pain when breathing due to pleural effusion, no coughing - ENT: No sore throat, ringing in left ear, difficulty swallowing, recent voice issues - Neurological: Headaches daily (worsened by coughing), lightheadedness when standing, off-balance feeling (mostly to the left), no vertigo - Gastrointestinal: Heartburn, no diarrhea, no constipation, no blood in stools - Genitourinary: No blood in urine, no difficulties urinating, no burning or stinging - Musculoskeletal: Pain in left chest, under breast, back, and left shoulder - Endocrine: No weight loss or gain - Peripheral vascular: Swelling in legs (worsened by standing or hanging legs Vitals: BP 119/86 (BP Location: Right arm, Patient Position: Sitting) Pulse 90 Temp 36.2 C (97.1 F) (Temporal) Resp 18 Wt 154 lb 14.4 oz (70.3 kg) SpO2 93% BMI 27.44 kg/m BMI Classification: Overweight (BMI 25.0-29.9) Pulse Ox: SpO2 Av % Min: 93 % Max: 93 % Supplemental O2: PHYSICAL EXAM: Physical Exam Physical Examination - General: Patient sitting in bed appears in acute distress, tripod position - Head, Eyes, Ears, Nose, Throat: Conjunctiva clear, moist mucous membrane, palpable nodule on the left anterior neck, did not appreciate midline nodule or enlarge thryoid on exam - Cardiovascular: Heart rate tachycardic but regular, palpable pulses bilaterally - Respiratory: Unable to appreciate lung sounds in the left lung field, decreased air entry in the right lower lobes - Abdomen: Soft and non-tender to palpation, no distention or rigidity. - Extremities: Peripheral edema, non-pitting DATA: CBC: No results for input(s): WBC, RBC, HGB, HCT, MCV, RDW, PLT in the last 72 hours. BMP:No results for input(s): NA, K, CL, CO2, BUN, CREATININE, GLUCOSE, CALCIUM, ANIONGAP in the last 72 hours. LIVER PROFILE:No results for input(s): AST, ALT, BILITOT, ALKPHOS, PROT in the last 72 hours. No lab exists for component: LABALBU PT/INR: No results for input(s): PROTIME, INR in the last 72 hours. CARDIAC ENZYMES: No results for input(s): TROPONINI in the last 72 hours. Procalcitonin: No results found for: PROCAL Urine Culture: No results found for this or any previous visit. COVID-19 PCR: No results for input(s): COVID19 in the last 72 hours. I reviewed: [x] laboratory results [x] radiographic results At the time of today's encounter. Pt was advised of the results. Data: (CAT1) Reviewed 3 or more notes from different specialty or health system (each=1). (CAT1) Ordered 3 or more new labs and/or studies (each=1, panels count as 1). CAT1 - considered to order repeat CT chest for pulmonology - but will defer at this time, to see ifanything will be uploaded to file overnight (LOW: 2x CAT1 or independent historian MOD: 3x CAT1 or 1x CAT3 EXTENSIVE: 3x CAT1 and 1x CAT3) Assessment Discussed management with the ED provider and agree with hospitalization. Acute, acute on chronic, unstable/uncontrolled chronic problems/diagnoses: Karina, is a 73 year old, is a female patient with suspected lung cancer vs thyroid cancer, presenting with left shoulder and back pain, pleural effusion, and difficulty breathing. - The patient's presentation with left lung effusion on chest X-ray and CT of chest, strongly suggests a malignant process, likely lung cancer. - The presence of abnormal thyroid nodules, daily headaches, and difficulty swallowing further supports the suspicion of a metastatic process. Will need HAT RENOVATOR and MBSS for assessment. - Lightheadedness upon standing and off-balance feeling, predominantly to the left, may indicate paraneoplastic syndrome or brain metastases. - The decision not to start antibiotics is based on the absence of fever, chills, or significant cough, suggesting the pleural effusion is likely due to the suspected cancer rather than an infectiousprocess. - Thoracentesis is planned for diagnostic and therapeutic purposes, which may provide relief from breathing difficulties and potentially confirm the diagnosis of lung cancer. - The patient's tachycardia, decreased air entry in the right throat, and palpable nodule on the left anterior neck are consistent with the suspected malignancy and associated complications. - Continuous pulse oximetry monitoring is recommended due to the respiratory compromise and potential need for oxygen supplementation, especially post-thoracentesis. - Dilaudid is considered for breakthrough pain management, taking into account the patient's current pain levels and the inadequacy of current pain management with oxycodone. Suspected Lung Cancer with Pleural Effusion Patient has scheduled EBUS procedure, thyroid biopsy, brain MRI, and PET scan for further evaluation. The pleural effusion is thought to be related to the suspected malignancy rather than infection, as patient denies fever or chills. - Direct admit to floor - Thoracentesis scheduled for tomorrow to drain pleural fluid - labs ordered - NPO after midnight - Continuous pulse oximetry monitoring overnight - Dilaudid ordered for breakthrough pain if oxycodone ineffective - No antibiotics initiated due to low suspicion for infection - Proceed with scheduled EBUS procedure on Wednesday if discharged before then - obtain CBC and CMP - Pulmonology consult - CXR in AM - as no imaging on file given at [facility]. Follow up labs with day team. Thyroid Nodules Patient has abnormal thyroid nodules, A palpable nodule was noted on the left anterior neck during physical examination. Thyroid nodules may be contributing to difficulty swallowing, which has worsened recently. - Thyroid biopsy scheduled for Wednesday - Speech-language pathology assessment for swallowing difficulties - MBSS Orthostatic Hypotension Patient reports lightheadedness upon standing, which improves after a while but causes an off-balance feeling, predominantly to the left. This may be related to orthostatic hypotension or possibly a neurological issue. - Physical therapy evaluation for gait and balance assessment - Monitor for worsening symptoms - Obtain orthostatic VS - HOLD BP medications. - HCTZ in case of dehydration Chronic Obstructive Pulmonary Disease (COPD) Patient has been prescribed inhalers for respiratory management, indicating a history of COPD or similar respiratory condition. Recently switched from Trelegy to Symbicort due to cost concerns. - Continue Symbicort as prescribed - Discontinue Trelegy - - Maintain Ventolin (albuterol) as rescue inhaler Insomnia and anxiety - Melatonin 10 mg PO daily - she takes 30 mg - recommended cutting back to 10 mg PO donahue - Trazadone 200 mg PO nightly - Buspar 10 mg PO TID Medication reconsolidation was completed and verified with daughter and patient at bedside, deletedmedications that were not being taken any more Advance Directives Patient's code status and healthcare proxy were discussed and documented. - Designate as full code - Appoint Catherine and patient as healthcare proxies for medical decision-making Plan As a result of the above findings & factors, the following mgmt was pursued: - - am labs, replace lytes prn - PT/OT/CM/SW - delirium precautions: increase activity, schedule melatonin at bedtime, and limit nighttime disturbances - DVT prophylaxis: enoxaparin and encourage ambulation Complexity: Undiagnosed new problem with uncertain prognosis (MOD). Risk: Admission to hospital-level care was considered or occurred (HIGH). Advance Directive: Full Code Anticipated Discharge - Date - - Location - home - Pending the following - s/p pulmonology and HAT RENOVATOR evaluation Total time spent (which include face to face and non face to face encounters) : 81 minutes. Toxic drug monitoring/narrow therapeutic index drug monitoring : # Drug name : NA # Route administered : NA # Method of monitoring : NA Extended Emergency Contact Information Primary Emergency Contact: Diaz Cordova Mobile Relation: Daughter Secondary Emergency Contact: Andrew Dozier Mobile Relation: Son [employer] Karina Fernando : 1950 Primary Care Physician: TU HECTOR DO The patient and/or family/surrogate voluntarily agreed to participate in ACP services. 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 [Condition that instigated the ACP on this DOS, relevant PMH, functional status, goals of care, andwhom this was discussed with including names and relationship to the patient, and any relevant advance care documentation discussion] I answered all the patient/family questions that I could within the range and scope of the current medical situation. We discussed the medical conditions, risks, benefits, outcomes, and goals of careat this time for the patient's medical issues at hand in the face of the patient's chronic issues and current presentation. Total time spent: 2 minutes were spent discussing the patient's resuscitation status, advance care planning, and end of life care, with patient and/or family/surrogate. Sushila Tam MD Division of Hospitalist Medicine [id number] NoteAttending History and Physical Admit Date: 10/05/2024 PCP: TU HECTOR DO CHIEF COMPLAINT: Shortness of breath and left sided chest pain Reason for Admission: Pleural effusion History Obtained From: patient HISTORY OF PRESENT ILLNESS: Karina is a 73 y.o. female with past medical history of COPD previous smoker, asthma, Hiatal hernia, Recent discovery of lung mass and thyroid nodules - with EBUS and thyroid biopsy scheduled in the next week, PET scan and other work up. She presented to [facility] ED - with worsening left shoulder, back and lung pain, also describes lightheadedness when going for sit to stand. She states that lately she has been having voice changes and difficulties swallowing with both liquid and solids, and has noticed some swelling - small lumps that come and go in her neck this all started In February. She feels that she has a worsening headache - which she attributes to all the cough she has done, She has a sensation of vertigo with a ringing in her left ear and sensation of falling to the left side. She was found to have a large left sided pleural effusion and was sent in for management to [facility]. She has a history of hiatal hernia and takes Protonix for heartburn once daily in the morning. She takes stool softeners daily, trazadone and melatonin to sleep She reports swelling in her legs since her thirties, which worsens with standing or hanging legs. The patient denies diarrhea, constipation, blood in urine or stools, difficulties urinating, burning, stinging, or recent weight changes. VS on arrival P 90, T 36.2, RR 18, BP 119/86, SpOw 93%, Unable to obtain labs and imaging from [facility] - Was told she has a complete white out of her left lung field. 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 Social History: Social History Socioeconomic History Marital status: Spouse name: Not on file Number of children: Not on file Years of education: Not on file Highest education level: Not on file Occupational History Not on file Tobacco Use Smoking status: Former Average packs/day: 1 pack/day for 51.9 years (51.9 ttl pk-yrs) Types: Cigarettes Start date: 1972 Passive exposure: Past Smokeless tobacco: Never Vaping Use Vaping status: Never Used Substance and Sexual Activity Alcohol use: Not Currently Drug use: Never Comment: caffeine: 2 cups of coffee per day, 2 small cans of diet soda Sexual activity: Not on file Other Topics Concern Not on file Social History Narrative Not on file Social Drivers of Health Financial Resource Strain: Not on file Food Insecurity: Not on file Transportation Needs: Not on file Physical Activity: Not on file Stress: Not on file Social Connections: Not on file Intimate Partner Violence: Not on file Housing Stability: Not on file Family History: Family History Problem Relation Name Age of Onset Cancer Mother Cancer Father No Known Problems Sister No Known Problems Brother Heart disease Brother Medications Prior to Admission: No current facility-administered medications on file prior to encounter. Current Outpatient Medications on File Prior to Encounter Medication Sig Dispense Refill acetaminophen (Tylenol Extra Strength) 500 MG tablet Take by mouth. albuterol (Ventolin HFA) 108 (90 Base) MCG/ACT inhaler Inhale 2 puffs every 4 hours as needed for wheezing or shortness of breath. 8 g 11 busPIRone (Buspar) 10 MG tablet Take 10 mg by mouth 3 times daily as needed. cetirizine (ZyrTEC) 10 MG tablet Take 10 mg by mouth daily. cholecalciferol (Vitamin D-3) 25 MCG (1000 UT) capsule Take 1,000 Units by mouth daily. Ucqzcwidpjv-Mluqdoysm-Brartz (Trelegy Ellipta) 100-62.5-25 MCG/ACT aerosol powder Inhale 1 Inhalation daily. 60 each 5 gabapentin (Neurontin) 300 MG capsule Take 300 mg by mouth 3 times daily. hydroCHLOROthiazide (HYDRODiuril) 25 MG tablet Take 25 mg by mouth daily. loratadine (Claritin) 5 MG chewable tablet Chew 5 mg daily. Melatonin 2.5 MG chewable tablet Chew Daily as needed. meloxicam (Mobic) 15 MG tablet Take by mouth daily. Multiple Vitamin (multivitamin) capsule Take 1 capsule by mouth daily. [place]-3 Fatty Acids (OMEGA 3 500 PO) Take by mouth daily. oxyCODONE-acetaminophen (Percocet) 5-325 MG tablet simvastatin (Zocor) 20 MG tablet Take 20 mg by mouth Nightly. traZODone (Desyrel) 100 MG tablet Take 100 mg by mouth Nightly. valACYclovir (Valtrex) 500 MG tablet Take by mouth daily. Vitamin E 268 MG (400 UNIT) capsule Take by mouth daily. Allergies: Allergies Allergen Re (more content not included)...[facility]03-20-2025 History and physical note* Sushila Tam MD - 10/05/2024 9:39 PM EDT Attending History and Physical Admit Date: 10/05/2024 PCP: TU HECTOR DO CHIEF COMPLAINT: Shortness of breath and left sided chest pain Reason for Admission: Pleural effusion History Obtained From: patient HISTORY OF PRESENT ILLNESS: Karina is a 73 y.o. female with past medical history of COPD previous smoker, asthma, Hiatal hernia,Recent discovery of lung mass and thyroid nodules - with EBUS and thyroid biopsy scheduled in the next week, PET scan and other work up. She presented to [facility] ED - with worsening left shoulder, back and lung pain, also describes lightheadedness when going for sit to stand. She states that lately she has been having voice changes and difficulties swallowing with both liquid and solids, and has noticed some swelling - small lumps that come and go in her neck this all started In February. She feels that she has a worsening headache - which she attributes to all the cough she has done, She has a sensation of vertigo with a ringing in her left ear and sensation of falling to the left side. She was found to have a large left sided pleural effusion and was sent in for management to [facility]. She has a history of hiatal hernia and takes Protonix for heartburn once daily in the morning. She takes stool softeners daily, trazadone and melatonin to sleep She reports swelling in her legs sinceher thirties, which worsens with standing or hanging legs. The patient denies diarrhea, constipation, blood in urine or stools, difficulties urinating, burning, stinging, or recent weight changes. VS on arrival P 90, T 36.2, RR 18, BP 119/86, SpOw 93%, Unable to obtain labs and imaging from [facility] [place] - Was told she has a complete white out of her left lung field. 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 Social History: Social History Socioeconomic History Marital status: Spouse name: Not on file Number of children: Not on file Years of education: Not on file Highest education level: Not on file Occupational History Not on file Tobacco Use Smoking status: Former Average packs/day: 1 pack/day for 51.9 years (51.9 ttl pk-yrs) Types: Cigarettes Start date: 1972 Passive exposure: Past Smokeless tobacco: Never Vaping Use Vaping status: Never Used Substance and Sexual Activity Alcohol use: Not Currently Drug use: Never Comment: caffeine: 2 cups of coffee per day, 2 small cans of diet soda Sexual activity: Not on file Other Topics Concern Not on file Social History Narrative Not on file Social Drivers of Health Financial Resource Strain: Not on file Food Insecurity: Not on file Transportation Needs: Not on file Physical Activity: Not on file Stress: Not on file Social Connections: Not on file Intimate Partner Violence: Not on file Housing Stability: Not on file Family History: Family History Problem Relation Name Age of Onset Cancer Mother Cancer Father No Known Problems Sister No Known Problems Brother Heart disease Brother Medications Prior to Admission: No current facility-administered medications on file prior to encounter. Current Outpatient Medications on File Prior to Encounter Medication Sig Dispense Refill acetaminophen (Tylenol Extra Strength) 500 MG tablet Take by mouth. albuterol (Ventolin HFA) 108 (90 Base) MCG/ACT inhaler Inhale 2 puffs every 4 hours as needed for wheezing or shortness of breath. 8 g 11 busPIRone (Buspar) 10 MG tablet Take 10 mg by mouth 3 times daily as needed. cetirizine (ZyrTEC) 10 MG tablet Take 10 mg by mouth daily. cholecalciferol (Vitamin D-3) 25 MCG (1000 UT) capsule Take 1,000 Units by mouth daily. Xnusnumirjf-Efmdkqxzz-Vymbva (Trelegy Ellipta) 100-62.5-25 MCG/ACT aerosol powder Inhale 1 Inhalation daily. 60 each 5 gabapentin (Neurontin) 300 MG capsule Take 300 mg by mouth 3 times daily. hydroCHLOROthiazide (HYDRODiuril) 25 MG tablet Take 25 mg by mouth daily. loratadine (Claritin) 5 MG chewable tablet Chew 5 mg daily. Melatonin 2.5 MG chewable tablet Chew Daily as needed. meloxicam (Mobic) 15 MG tablet Take by mouth daily. Multiple Vitamin (multivitamin) capsule Take 1 capsule by mouth daily. [place]-3 Fatty Acids (OMEGA 3 500 PO) Take by mouth daily. oxyCODONE-acetaminophen (Percocet) 5-325 MG tablet simvastatin (Zocor) 20 MG tablet Take 20 mg by mouth Nightly. traZODone (Desyrel) 100 MG tablet Take 100 mg by mouth Nightly. valACYclovir (Valtrex) 500 MG tablet Take by mouth daily. Vitamin E 268 MG (400 UNIT) capsule Take by mouth daily. Allergies: Allergies Allergen Reactions Alendronate Muscle ache, Swelling / lump finding Cefaclor Hives Erythromycin Nausea And Vomiting Erythromycin Base Nausea Only Famciclovir Hives Gabapentin Unknown Morphine Nausea And Vomiting Penicillins Hives Tramadol Hives, Itching and Nausea And Vomiting Hydrochlorothiazide W-Triamterene Rash REVIEW OF SYSTEMS: - General: Pain in left shoulder and back around bra line - Respiratory: Pain when breathing due to pleural effusion, no coughing - ENT: No sore throat, ringing in left ear, difficulty swallowing, recent voice issues - Neurological: Headaches daily (worsened by coughing), lightheadedness when standing, off-balance feeling (mostly to the left), no vertigo - Gastrointestinal: Heartburn, no diarrhea, no constipation, no blood in stools - Genitourinary: No blood in urine, no difficulties urinating, no burning or stinging - Musculoskeletal: Pain in left chest, under breast, back, and left shoulder - Endocrine: No weight loss or gain - Peripheral vascular: Swelling in legs (worsened by standing or hanging legs Vitals: BP 119/86 (BP Location: Right arm, Patient Position: Sitting) Pulse 90 Temp 36.2 C (97.1 F) (Temporal) Resp 18 Wt 154 lb 14.4 oz (70.3 kg) SpO2 93% BMI 27.44 kg/m BMI Classification: Overweight (BMI 25.0-29.9) Pulse Ox: SpO2 Av % Min: 93 % Max: 93 % Supplemental O2: PHYSICAL EXAM: Physical Exam Physical Examination - General: Patient sitting in bed appears in acute distress, tripod position - Head, Eyes, Ears, Nose, Throat: Conjunctiva clear, moist mucous membrane, palpable nodule on the left anterior neck, did not appreciate midline nodule or enlarge thryoid on exam - Cardiovascular: Heart rate tachycardic but regular, palpable pulses bilaterally - Respiratory: Unable to appreciate lung sounds in the left lung field, decreased air entry in the right lower lobes - Abdomen: Soft and non-tender to palpation, no distention or rigidity. - Extremities: Peripheral edema, non-pitting DATA: CBC: No results for input(s): WBC, RBC, HGB, HCT, MCV, RDW, PLT in the last 72 hours. BMP:No results for input(s): NA, K, CL, CO2, BUN, CREATININE, GLUCOSE, CALCIUM, ANIONGAP in the last 72 hours. LIVER PROFILE:No results for input(s): AST, ALT, BILITOT, ALKPHOS, PROT in the last 72 hours. No lab exists for component: LABALBU PT/INR: No results for input(s): PROTIME, INR in the last 72 hours. CARDIAC ENZYMES: No results for input(s): TROPONINI in the last 72 hours. Procalcitonin: No results found for: PROCAL Urine Culture: No results found for this or any previous visit. COVID-19 PCR: No results for input(s): COVID19 in the last 72 hours. I reviewed: [x] laboratory results [x] radiographic results At the time of today's encounter. Pt was advised of the results. Data: (CAT1) Reviewed 3 or more notes from different specialty or health system (each=1). (CAT1) Ordered 3 or more new labs and/or studies (each=1, panels count as 1). CAT1 - considered to order repeat CT chest for pulmonology - but will defer at this time, to see ifanything will be uploaded to file overnight (LOW: 2x CAT1 or independent historian MOD: 3x CAT1 or 1x CAT3 EXTENSIVE: 3x CAT1 and 1x CAT3) Assessment Discussed management with the ED provider and agree with hospitalization. Acute, acute on chronic, unstable/uncontrolled chronic problems/diagnoses: Karina, is a 73 year old, is a female patient with suspected lung cancer vs thyroid cancer, presenting with left shoulder and back pain, pleural effusion, and difficulty breathing. - The patient's presentation with left lung effusion on chest X-ray and CT of chest, strongly suggests a malignant process, likely lung cancer. - The presence of abnormal thyroid nodules, daily headaches, and difficulty swallowing further supports the suspicion of a metastatic process. Will need HAT RENOVATOR and MBSS for assessment. - Lightheadedness upon standing and off-balance feeling, predominantly to the left, may indicate paraneoplastic syndrome or brain metastases. - The decision not to start antibiotics is based on the absence of fever, chills, or significant cough, suggesting the pleural effusion is likely due to the suspected cancer rather than an infectiousprocess. - Thoracentesis is planned for diagnostic and therapeutic purposes, which may provide relief from breathing difficulties and potentially confirm the diagnosis of lung cancer. - The patient's tachycardia, decreased air entry in the right throat, and palpable nodule on the left anterior neck are consistent with the suspected malignancy and associated complications. - Continuous pulse oximetry monitoring is recommended due to the respiratory compromise and potential need for oxygen supplementation, especially post-thoracentesis. - Dilaudid is considered for breakthrough pain management, taking into account the patient's current pain levels and the inadequacy of current pain management with oxycodone. Suspected Lung Cancer with Pleural Effusion Patient has scheduled EBUS procedure, thyroid biopsy, brain MRI, and PET scan for further evaluation. The pleural effusion is thought to be related to the suspected malignancy rather than infection, as patient denies fever or chills. - Direct admit to floor - Thoracentesis scheduled for tomorrow to drain pleural fluid - labs ordered - NPO after midnight - Continuous pulse oximetry monitoring overnight - Dilaudid ordered for breakthrough pain if oxycodone ineffective - No antibiotics initiated due to low suspicion for infection - Proceed with scheduled EBUS procedure on Wednesday if discharged before then - obtain CBC and CMP - Pulmonology consult - CXR in AM - as no imaging on file given at [facility]. Follow up labs with day team. Thyroid Nodules Patient has abnormal thyroid nodules, A palpable nodule was noted on the left anterior neck during physical examination. Thyroid nodules may be contributing to difficulty swallowing, which has worsened recently. - Thyroid biopsy scheduled for Wednesday - Speech-language pathology assessment for swallowing difficulties - MBSS Orthostatic Hypotension Patient reports lightheadedness upon standing, which improves after a while but causes an off-balance feeling, predominantly to the left. This may be related to orthostatic hypotension or possibly a neurological issue. - Physical therapy evaluation for gait and balance assessment - Monitor for worsening symptoms - Obtain orthostatic VS - HOLD BP medications. - HCTZ in case of dehydration Chronic Obstructive Pulmonary Disease (COPD) Patient has been prescribed inhalers for respiratory management, indicating a history of COPD or similar respiratory condition. Recently switched from Trelegy to Symbicort due to cost concerns. - Continue Symbicort as prescribed - Discontinue Trelegy - - Maintain Ventolin (albuterol) as rescue inhaler Insomnia and anxiety - Melatonin 10 mg PO daily - she takes 30 mg - recommended cutting back to 10 mg PO donahue - Trazadone 200 mg PO nightly - Buspar 10 mg PO TID Medication reconsolidation was completed and verified with daughter and patient at bedside, [facility], elizabethtoncations that were not being taken any more Advance Directives Patient's code status and healthcare proxy were discussed and documented. - Designate as full code - Appoint Catherine and patient as healthcare proxies for medical decision-making Plan As a result of the above findings & factors, the following mgmt was pursued: - - am labs, replace lytes prn - PT/OT/CM/SW - delirium precautions: increase activity, schedule melatonin at bedtime, and limit nighttime disturbances - DVT prophylaxis: enoxaparin and encourage ambulation Complexity: Undiagnosed new problem with uncertain prognosis (MOD). Risk: Admission to hospital-level care was considered or occurred (HIGH). Advance Directive: Full Code Anticipated Discharge - Date - - Location - home - Pending the following - s/p pulmonology and HAT RENOVATOR evaluation Total time spent (which include face to face and non face to face encounters) : 81 minutes. Toxic drug monitoring/narrow therapeutic index drug monitoring : # Drug name : NA # Route administered : NA # Method of monitoring : NA Extended Emergency Contact Information Primary Emergency Contact: Diaz Cordova Mobile Relation: Daughter Secondary Emergency Contact: Andrew Dozier Mobile Relation: Son [employer] Karina Fernando : 1950 Primary Care Physician: TU HECTOR DO The patient and/or family/surrogate voluntarily agreed to participate in ACP services. 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 [Condition that instigated the ACP on this DOS, relevant PMH, functional status, goals of care, andwhom this was discussed with including names and relationship to the patient, and any relevant advance care documentation discussion] I answered all the patient/family questions that I could within the range and scope of the current medical situation. We discussed the medical conditions, risks, benefits, outcomes, and goals of careat this time for the patient's medical issues at hand in the face of the patient's chronic issues and current presentation. Total time spent: 2 minutes were spent discussing the patient's resuscitation status, advance care planning, and end of life care, with patient and/or family/surrogate. Sushila Tam MD Division of Hospitalist Medicine [facility] documented in this [facility]03-20-2025 Discharge summary [facility] Medical Records Department [address] [place] [address] Emergency Department Summary 10/05/24 MR#: [id number] Acct: [id number] Name: KARINA FERNANDO Rep #:[id number] : 1950 73 From: Marty Woods DO PCP: Dr. Tu Hector DO Status:REG ER Location: ED HPI History of Present Illness Chief Complaint: Shortness of Breath Narrative Narrative: Patient is a 73-year-old female with past medical history of COPD, recent diagnosis of lung cancer scheduled to have a biopsy of her lung, thyroid and PETscan in the near future who presented to the emergency department with a chief complaint of worsening shortness of breath and left back pain as well as radiates across to her bra line as she states. According to family member bedside they calleda physician and they advised her to go to the emergency department to be evaluated as her symptoms were worsening. Patient denies any blood thinner medications denies any history of blood clots. Patient states that she has become very short of breath when she tries to get up and walk. [facility] Medical History COPD (chronic obstructive pulmonary disease) Home Medications ?Medication ?Instructions ?Recorded ?Last Taken ?Type albuterol sulfate 90 mcg/actuation 1 - 2 puff inhalati on Q4H PRN PRN 08/24/19 Unknown History aerosol inhaler Sob &/Or Wheezing buspirone 10 mg tablet 10 mg PO TID 08/24/19 Unknow n History loratadine 10 mg tablet 10 mg PO DAILY 08/24/19 Unkn own History budesonide-formoterol HFA 80 1 inh inhalation .x4 08/20 01/10 Unknown History mcg-4.5 mcg/actuation aerosol inhaler hydrochlorothiazide 25 mg tablet 25 mg PO DAILY Unknown History oxycodone-acetaminophen 5 mg-325 1 tab PO TID PRN PRN pain 09/13/24 Unknown History mg tablet trazodone 100 mg tablet 100 mg PO QHS 09/13/24 Unkno wn History cholecalciferol (vitamin D3) 25 25 mcg PO QDAY 5 Unknown History mcg (1,000 unit) capsule multivitamin 1 tab PO QAM 09/18/24 Unknow n History omega-3 fatty acids 1,000 mg 1,000 mg PO QDAY 09/18/24 Unknown History capsule albuterol sulfate 2.5 mg/3 mL 2.5 mg inhalation PRN KS N 09/22/24 Unknown History (0.083 %) solution for nebulization shortness of breat h or wheezing cetirizine 10 mg tablet (24Hour 10 mg PO DAILY 5 Unknown History Allergy) gabapentin 300 mg capsule 300 mg PO TID 10/05/24 Unkno wn History melatonin 2.5 mg chewable tablet 2.5 mg PO QHS 5 Unknown History meloxicam 15 mg tablet 15 mg PO DAILY 10/05/24 Unkn own History simvastatin 20 mg tablet 20 mg PO QHS 10/05/24 Unknow n History valacyclovir 500 mg tablet 500 mg PO BID 10/05/24 Unkn own History vitamin E 268 mg (400 unit) capsule 268 mg PO DAILY Unknown History Allergy/AdvReac Type Severity Reaction Status Date / Time Opioids - Morphine Analogues Allergy Severe Hives Verified 10/05/24 13:55 alendronate sodium (From Allergy Pain in Verified 10/05/24 13:55 Fosamax) joints cefaclor (From Ceclor) Allergy Hives Verified 10/05/24 13:55 Penicillins Allergy Hives Verified 10/05/24 13:55 tramadol HCl (From Ultram) Allergy Hives Verified 10/05/24 13:55 erythromycin base AdvReac Nausea Verified 10/05/24 13:55 Family History Mother Leukemia Grandfather Brain cancer Father Respiratory disease Surgical History History of eyelid surgery History of shoulder surgery History of carpal tunnel release History of bilateral knee replacement H/O breast biopsy History of appendectomy Previous back surgery Social History Smoking Status: Former smoker Tobacco: How many years used: 30 alcohol intake: never ROS ROS ED ROS Narrative Constitutional: Denies fevers, chills, headaches, lightness, dizziness Eyes: Denies change in vision double vision blurry vision Cardiovascular: Denies chest pain or palpitations Respiratory: Complains shortness of breath as noted above Abdomen: Denies abdominal pain nausea vomit diarrhea : Denies urinary symptoms Neurological: Denies numbness, weakness, tingling Musculoskeletal: Complains of back pain as noted above Skin: Denies rashes or lesions EXAM Physical Exam Narrative Exam Narrative: General: Patient lying in bed did not appear to be short of breath no acute distress Head: Atraumatic, normocephalic Eyes: PERRL bilaterally, EOMI bilateral, no conjunctival injection noted Neck: Soft, supple, trachea midline Cardiovascular: Patient tachycardic with a regular rhythm no murmurs gallops rubs noted Respiratory: Diminished breath sounds bilaterally Abdomen: Soft, nondistended, nontender to palpation Extremities: +4/5 strength noted in the bilateral upper and lower extremities, no pedal edema on exam Neurological: Patient following commands and that she was at [facility] year is 2024 Skin: Warm, dry, intact no rashes or lesions noted Const Vital Signs: 10/05/24 13:52 10/05/24 14:07 10/05/24 14:26 Temperature 96.9 F L 98.4 F Temperature Source Temporal Oral Pulse Rate 112 H 107 H Respiratory Rate 19 H 16 Respiratory Effort Short of Breath Respiratory Depth Shallow Respiratory Pattern Tachypnea Blood Pressure 136/87 H 113/72 Blood Pressure Mean 103 85 Pulse Ox 94 94 Oxygen Delivery Method Room Air Room Air Room Air 10/05/24 14:46 10/05/24 15:00 10/05/24 15:08 Temperature Temperature Source Pulse Rate 110 H 100 Respiratory Rate 20 H 17 Respiratory Effort Respiratory Depth Respiratory Pattern Normal Blood Pressure 123/92 H Blood Pressure Mean 102 Pulse Ox 93 Oxygen Delivery Method Room Air Room Air 10/05/24 16:00 10/05/24 17:00 Temperature Temperature Source Pulse Rate 102 H 101 H Respiratory Rate 22 H 22 H Respiratory Effort Respiratory Depth Respiratory Pattern Blood Pressure 117/77 111/82 H Blood Pressure Mean 90 91 Pulse Ox 91 93 Oxygen Delivery Method Room Air Room Air MDM MDM MDM Narrative Medical decision making narrative: Patient is a 73-year-old female who presented to the emergency department chief complaint of shortness of breath and back pain. On the differential diagnose includes but not limited to pneumothorax, pneumonia, pulmonary embolism, CHF, pleural effusion. Once workup is obtained reviewed she will be reevaluated. Patient be given 2 DuoNebs. Patient CBC was reviewed and showed no evidence leukocytosis white blood count normal at 4.7, hemoglobin 12.3, plate count was noted be 278. Patient's INR normal at 1, PT of 12.9. Patient sodium normal 141, potassium 3.3, creatinine was noted be 0.99. Patient AST and ALT are 20 and 11 respectively.Patient's troponin was noted be 17. Patient's EKG was reviewed and showed sinus tachycardia the rate of 110 bpm delta troponin pending. Patient proBNP noted benormal at 166. Patient's chest x-ray reviewed by myself and by radiology which showed patchy airspace disease of the left lung field could be atelectasis and/or multifocal pneumonia. Underlying pulmonary mass cannot be clearly visualized asa head CT dated on 09/13/2024. Cardiomegaly and mild congestion. Ordered a dose of Levaquin. Patient CTA of her chest was reviewed showed no pulmonary embolism identified. Some of the distal pulmonary arteries cannot be evaluated due to the suboptimal opacification., Limited left perihilar mass measuring up to 6.7 cm. Associatedatelectasis of the lingula new since prior exam moderate esophageal hiatal hernia. 2.5 cm subpleural nodule of the left lower lobe unchanged. Patient does have a left pleural effusion noted as well. Patient was ambulated here in the emergency department and became hypoxic to 86%on room air. Will attempt to transfer the patient to [facility] as she has a EBUS scheduled on Wednesday. Discussed case with hospitalist at [facility] Dr. Rodriguez who accept patient for transfer. Patient was accepted for transfer at 5:15 PM on 10/05/2024. Discussedthe results and the plan with the patient and family bedside they are agreeable this plan all question concerns answered at bedside. Lab Data Labs: Laboratory Results - last 24 hr 10/05/24 10/05/24 14:40 15:40 WBC 4.7 RBC 4.80 Hgb 12.3 Hct 39.2 MCV 81.7 MCH 25.6 L MCHC 31.4 L RDW Std Deviation 56.2 H RDW Coeff of Juan David 19.0 H Plt Count 278 MPV 8.8 Immature Gran % (Auto) 0.200 Neut % (Auto) 63.2 Lymph % (Auto) 23.3 [place] % (Auto) 12.9 H Eos % (Auto) 0.0 Baso % (Auto) 0.4 Absolute Neuts (auto) 3.0 Absolute Lymphs (auto) 1.10 Nucleated RBC % 0 PT 12.9 INR 1.0 APTT 22.2 L Sodium 141 Potassium 3.3 Chloride 102 Carbon Dioxide 25.1 Anion Gap 14 BUN 10 Creatinine 0.99 Estim Creat Clear Calc 49.48 L Est GFR (MDRD) Non-Af 61 BUN/Creatinine Ratio 10.0 Glucose 107 H Lactic Acid 1.4 Calcium 9.6 Total Bilirubin 0.17 AST 20 ALT 11 Alkaline Phosphatase 57 Troponin T High Sens 17 H D NT pro BNP II 166 Total Protein 7.2 Albumin 4.2 Globulin 3.0 Albumin/Globulin Ratio 1.4 Radiography Diagnostic Testing: Clinical Impression(s) from Imaging Studies Chest X-Ray 10/05/24 14:50 IMPRESSION: 1. Patchy airspace disease of the left lung field could be atelectasis and/or multifocal pneumonia.Underlying pulmonary mass can not be clearly visualized as in CT dated 09/13/2024. 2. Cardiomegaly with mild congestion. Reading Location: [facility] Chest CTA 10/05/24 15:40 IMPRESSION: 1. No pulmonary embolism is identified. Some of the distal pulmonary arteries cannot be evaluated due to suboptimal opacification. 2. 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 Associated atelectasis of the lingula, new since prior exam. 3. Moderate esophageal hiatal hernia. 4. 2.5 cm subpleural nodule of the left lower lobe, unchanged. Reading Location: [facility] Discharge Plan Triage Chief Complaint: Shortness of Breath ED Provider: Marty Woods Dx/Rx/DC Orders Clinical Impression: Acute hypoxemic respiratory failure, Dyspnea on exertion, Pleural effusion on left, Mass of left lung Prescriptions: No Action cholecalciferol (vitamin D3) 25 mcg (1,000 unit) capsule 25 mcg PO QDAY multivitamin Tablet 1 tab PO QAM omega-3 fatty acids 1,000 mg capsule 1,000 mg PO QDAY albuterol sulfate 2.5 mg /3 mL (0.083 %) solution for nebulization 2.5 mg inhalation PRN PRN (Reason: shortness of breath or wheezing) Patient Comments: [NO ORIGINAL SIG] buspirone 10 MG tablet 10 mg PO TID albuterol sulfate 1 INHALER inhaler 1 - 2 puff inhalation Q4H PRN PRN (Reason: Sob &/Or Wheezing) loratadine 10 MG tablet 10 mg PO DAILY cetirizine [24Hour Allergy] 10 mg tablet 10 mg PO DAILY melatonin 2.5 mg tablet,chewable 2.5 mg PO QHS valacyclovir 500 mg tablet 500 mg PO BID simvastatin 20 mg tablet 20 mg PO QHS vitamin E 268 mg (400 unit) capsule 268 mg PO DAILY meloxicam 15 mg tablet 15 mg PO DAILY gabapentin 300 mg capsule 300 mg PO TID oxycodone-acetaminophen 5-325 mg tablet 1 tab PO TID PRN PRN (Reason: pain) trazodone 100 mg tablet 100 mg PO QHS hydrochlorothiazide 25 mg tablet 25 mg PO DAILY budesonide-formoterol 80-4.5 mcg/actuation HFA aerosol inhaler 1 inh INHALATION .x4 Patient Comments: [NO ORIGINAL SIG] Rx Instructions: 2 puffs in morning, 2 puffs at night Primary Care Provider: Tu Hector Referrals: Tu Hector DO [Primary Care Provider] - Print Language: Bolivian Disposition Disposition: DC/Tx to Another Type of HCF What to do if you have Problems For any increased pain, shortness of breath, bleeding, nausea or vomiting, chestpain, or any unexpected problems, contact your Primary Care Provider. Call [facility] ([phone]) or report tothe closest Emergency Room. Call 911 if necessary. 10/05/24 1720 Cosigner Signature (if applicable): CC: Dr. Tu Hector DO ~ Signed [facility]03-20-2025 Radiology Diagnostic study note [facility] Imaging Services [address] [place], [place] [id number] CTA Chest W/WO Contrast MR#: [id number] Acct: [id number] Name: KARINA FERNANDO Rep #: [id number] : 1950 F 73 From: Talya Daniel MD PCP: Dr. Tu Hector DO Status: REG ER Study:CTA Chest W/WO Contrast Date of Exam: 10/05/24 Exam# [id number] Ordering Dr: Pedro Luis Woods DO EXAM: CT Angiography Chest Without and With Intravenous Contrast CLINICAL INDICATION: SOB, HX OF LUNG CANCER TECHNIQUE: Axial computed tomographic angiography images of the chest without and with intravenous contrast. This CT exam was performed using one or more of the following dose reduction techniques: automated exposure control,adjustment of the mA and/or kV according to patient size, and/or use of iterative reconstruction technique. MIP reconstructed images were created and reviewed. COMPARISON: CTA Chest dated 09/13/2024 FINDINGS: LIMITATIONS: Suboptimal opacification of the pulmonary arteries. PULMONARY ARTERIES: No pulmonary embolism is identified. Some of the distal pulmonary arteries cannot be evaluated due to suboptimal opacification. AORTA: No acute findings. No thoracic aortic aneurysm. LUNGS AND PLEURAL SPACES: Conglomerate left perihilar mass measuring up to 6.7 cm. Associated atelectasis of the lingula, new since prior exam. Left pleural effusion. 2.5 cm subpleural nodule of the left lower lobe, unchanged. Lung emphysema/COPD. No pneumothorax. HEART: Unremarkable. No cardiomegaly. No significant pericardial effusion. No evidence of RV dysfunction. MEDIASTINUM: Moderate esophageal hiatal hernia. BONES/JOINTS: No acute fracture. No dislocation. SOFT TISSUES: Unremarkable. LYMPH NODES: Unremarkable. No enlarged lymph nodes. CT/CTA Chest W/WO Contrast IMPRESSION: 1. No pulmonary embolism is identified. Some of the distal pulmonary arteries cannot be evaluated due to suboptimal opacification. 2. 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 Associated atelectasis of the lingula, new since prior exam. 3. Moderate esophageal hiatal hernia. 4. 2.5 cm subpleural nodule of the left lower lobe, unchanged. Reading Location: [facility] CC: Dr. Tu Hector DO; Dr. Marty Woods DO ~ Steeping Press Tender: Signed [facility]03-20-2025 Radiology Diagnostic study note [facility] Imaging Services [address] [place], [place] [address] Chest PA and Lateral MR#: [id number] Acct: [id number] Name: KARINA FERNANDO Rep #: [id number] : 1950 F 73 From: Talya Daniel MD PCP: Dr. Tu Hector DO Status: REG ER Study:Chest PA and Lateral Date of Exam: 10/05/24 Exam# [id number] Ordering Dr: Pedro Luis Woods DO EXAM: XR Chest, 2 Views CLINICAL INDICATION: HX OF LUNG CANCER, SOB TECHNIQUE: Frontal and lateral views of the chest. COMPARISON: No relevant prior studies available. FINDINGS: LUNGS AND PLEURAL SPACES: Patchy airspace disease of the left lung field could be atelectasis and/or multifocal pneumonia. Underlying pulmonary mass can not be clearly visualized as in CT dated 09/13/2024. HEART: Cardiomegaly with mild congestion. MEDIASTINUM: Unremarkable. Normal mediastinal contour. BONES/JOINTS: Unremarkable. No acute fracture. RAD/Chest PA and Lateral IMPRESSION: 1. Patchy airspace disease of the left lung field could be atelectasis and/or multifocal pneumonia.Underlying pulmonary mass can not be clearly visualized as in CT dated 09/13/2024. 2. Cardiomegaly with mild congestion. Reading [facility] CC: Dr. Tu Hector DO; Dr. Marty Woods DO ~ Steeping Press Tender: Signed [facility]03-20-2025 Discharge summary Author Marty Woods [facility] Note Date/Time October 05, 2024 5:2 0pm [facility] Medical Records Department [address] [place] [address] Emergency Department Summary 10/05/24 MR#: [id number] Acct: [id number] Name: KARINA FERNANDO Rep #:[id number] : 1950 73 From: Marty Woods DO PCP: Dr. Tu Hector, Status:REG ER Location: ED HPI History of Present Illness Chief Complaint: Shortness of Breath Narrative Narrative: Patient is a 73-year-old female with past medical history of COPD, recent diagnosis of lung cancer scheduled to have a biopsy of her lung, thyroid and PETscan in the near future who presented to the emergency department with a chief complaint of worsening shortness of breath and left back pain as well as radiates across to her bra line as she states. According to family member bedside they called a physician and they advised her to go to the emergency department to be evaluated as her symptoms were worsening. Patient denies any blood thinner medications denies any history of blood clots. Patient states that she has become very short of breath when she tries to get up and walk. [facility] Medical History COPD (chronic obstructive pulmonary disease) Home Medications ?Medication ?Instructions ?Recorded ?Last Taken ?Type albuterol sulfate 90 mcg/actuation 1 - 2 puff inhalati on Q4H PRN PRN 08/24/19 Unknown History aerosol inhaler Sob &/Or Wheezing buspirone 10 mg tablet 10 mg PO TID 08/24/19 Unknow n History loratadine 10 mg tablet 10 mg PO DAILY 08/24/19 Unkn own History budesonide-formoterol HFA 80 1 inh inhalation .x4 08/20 01/10 Unknown History mcg-4.5 mcg/actuation aerosol inhaler hydrochlorothiazide 25 mg tablet 25 mg PO DAILY Unknown History oxycodone-acetaminophen 5 mg-325 1 tab PO TID PRN PRN pain 09/13/24 Unknown History mg tablet trazodone 100 mg tablet 100 mg PO QHS 09/13/24 Unkno wn History cholecalciferol (vitamin D3) 25 25 mcg PO QDAY 5 Unknown History mcg (1,000 unit) capsule multivitamin 1 tab PO QAM 09/18/24 Unknow n History omega-3 fatty acids 1,000 mg 1,000 mg PO QDAY 09/18/24 Unknown History capsule albuterol sulfate 2.5 mg/3 mL 2.5 mg inhalation PRN KS N 09/22/24 Unknown History (0.083 %) solution for nebulization shortness of breat h or wheezing cetirizine 10 mg tablet (24Hour 10 mg PO DAILY 5 Unknown History Allergy) gabapentin 300 mg capsule 300 mg PO TID 10/05/24 Unkno wn History melatonin 2.5 mg chewable tablet 2.5 mg PO QHS 5 Unknown History meloxicam 15 mg tablet 15 mg PO DAILY 10/05/24 Unkn own History simvastatin 20 mg tablet 20 mg PO QHS 10/05/24 Unknow n History valacyclovir 500 mg tablet 500 mg PO BID 10/05/24 Unkn own History vitamin E 268 mg (400 unit) capsule 268 mg PO DAILY Unknown History Allergy/AdvReac Type Severity Reaction Status Date / Time Opioids - Morphine Analogues Allergy Severe Hives Verified 10/05/24 13:55 alendronate sodium (From Allergy Pain in Verified 10/05/24 13:55 Fosamax) joints cefaclor (From Ceclor) Allergy Hives Verified 10/05/24 13:55 Penicillins Allergy Hives Verified 10/05/24 13:55 tramadol HCl (From Ultra) Allergy Hives Verified 10/05/24 13:55 erythromycin base AdvReac Nausea Verified 10/05/24 13:55 Family History Mother Leukemia Grandfather Brain cancer Father Respiratory disease Surgical History History of eyelid surgery History of shoulder surgery History of carpal tunnel release History of bilateral knee replacement H/O breast biopsy History of appendectomy Previous back surgery Social History Smoking Status: Former smoker Tobacco: How many years used: 30 alcohol intake: never ROS ROS ED ROS Narrative Constitutional: Denies fevers, chills, headaches, lightness, dizziness Eyes: Denies change in vision double vision blurry vision Cardiovascular: Denies chest pain or palpitations Respiratory: Complains shortness of breath as noted above Abdomen: Denies abdominal pain nausea vomit diarrhea : Denies urinary symptoms Neurological: Denies numbness, weakness, tingling Musculoskeletal: Complains of back pain as noted above Skin: Denies rashes or lesions EXAM Physical Exam Narrative Exam Narrative: General: Patient lying in bed did not appear to be short of breath no acute distress Head: Atraumatic, normocephalic Eyes: PERRL bilaterally, EOMI bilateral, no conjunctival injection noted Neck: Soft, supple, trachea midline Cardiovascular: Patient tachycardic with a regular rhythm no murmurs gallops rubs noted Respiratory: Diminished breath sounds bilaterally Abdomen: Soft, nondistended, nontender to palpation Extremities: +4/5 strength noted in the bilateral upper and lower extremities, no pedal edema on exam Neurological: Patient following commands and that she was at [facility] year is 2024 Skin: Warm, dry, intact no rashes or lesions noted Const Vital Signs: 10/05/24 13:52 10/05/24 14:07 10/05/24 14:26 Temperature 96.9 F L 98.4 F Temperature Source Temporal Oral Pulse Rate 112 H 107 H Respiratory Rate 19 H 16 Respiratory Effort Short of Breath Respiratory Depth Shallow Respiratory Pattern Tachypnea Blood Pressure 136/87 H 113/72 Blood Pressure Mean 103 85 Pulse Ox 94 94 Oxygen Delivery Method Room Air Room Air Room Air 10/05/24 14:46 10/05/24 15:00 10/05/24 15:08 Temperature Temperature Source Pulse Rate 110 H 100 Respiratory Rate 20 H 17 Respiratory Effort Respiratory Depth Respiratory Pattern Normal Blood Pressure 123/92 H Blood Pressure Mean 102 Pulse Ox 93 Oxygen Delivery Method Room Air Room Air 10/05/24 16:00 10/05/24 17:00 Temperature Temperature Source Pulse Rate 102 H 101 H Respiratory Rate 22 H 22 H Respiratory Effort Respiratory Depth Respiratory Pattern Blood Pressure 117/77 111/82 H Blood Pressure Mean 90 91 Pulse Ox 91 93 Oxygen Delivery Method Room Air Room Air MDM MDM MDM Narrative Medical decision making narrative: Patient is a 73-year-old female who presented to the emergency department chief complaint of shortness of breath and back pain. On the differential diagnose includes but not limited to pneumothorax, pneumonia, pulmonary embolism, CHF, pleural effusion. Once workup is obtained reviewed she will be reevaluated. Patient be given 2 DuoNebs. Patient CBC was reviewed and showed no evidence leukocytosis white blood count normal at 4.7, hemoglobin 12.3, plate count was noted be 278. Patient's INR normal at 1, PT of 12.9. Patient sodium normal 141, potassium 3.3, creatinine was noted be 0.99. Patient AST and ALT are 20 and 11 respectively. Patient's troponin was noted be 17. Patient's EKG was reviewed and showed sinus tachycardia the rate of 110 bpm delta troponin pending. Patient proBNP noted benormal at 166. Patient's chest x-ray reviewed by myself and by radiology which showed patchy airspace disease of the left lung field could be atelectasis and/or multifocal pneumonia. Underlying pulmonary mass cannot be clearly visualized as a head CT dated on 09/13/2024. Cardiomegaly and mild congestion. Ordered a dose of Levaquin. Patient CTA of her chest was reviewed showed no pulmonary embolism identified. Some of the distal pulmonary arteries cannot be evaluated due to the suboptimal opacification., Limited left perihilar mass measuring up to 6.7 cm. Associatedatelectasis of the lingula new since prior exam moderate esophageal hiatal hernia. 2.5 cm subpleural nodule of the left lower lobe unchanged. Patient does have a left pleural effusion noted as well. Patient was ambulated here in the emergency department and became hypoxic to 86%on room air. Will attempt to transfer the patient to [facility] as she has a EBUS scheduled on Wednesday. Discussed case with hospitalist at [facility] Dr. Rodriguez who accept patient for transfer. Patient was accepted for transfer at 5:15 PM on 10/05/2024. Discussedthe results and the plan with the patient and family bedside they are agreeable this plan all question concerns answered at bedside. Lab Data Labs: Laboratory Results - last 24 hr 10/05/24 10/05/24 14:40 15:40 WBC 4.7 RBC 4.80 Hgb 12.3 Hct 39.2 MCV 81.7 MCH 25.6 L MCHC 31.4 L RDW Std Deviation 56.2 H RDW Coeff of Juan David 19.0 H Plt Count 278 MPV 8.8 Immature Gran % (Auto) 0.200 Neut % (Auto) 63.2 Lymph % (Auto) 23.3 [place] % (Auto) 12.9 H Eos % (Auto) 0.0 Baso % (Auto) 0.4 Absolute Neuts (auto) 3.0 Absolute Lymphs (auto) 1.10 Nucleated RBC % 0 PT 12.9 INR 1.0 APTT 22.2 L Sodium 141 Potassium 3.3 Chloride 102 Carbon Dioxide 25.1 Anion Gap 14 BUN 10 Creatinine 0.99 Estim Creat Clear Calc 49.48 L Est GFR (MDRD) Non-Af 61 BUN/Creatinine Ratio 10.0 Glucose 107 H Lactic Acid 1.4 Calcium 9.6 Total Bilirubin 0.17 AST 20 ALT 11 Alkaline Phosphatase 57 Troponin T High Sens 17 H D NT pro BNP II 166 Total Protein 7.2 Albumin 4.2 Globulin 3.0 Albumin/Globulin Ratio 1.4 Radiography Diagnostic Testing: Clinical Impression(s) from Imaging Studies Chest X-Ray 10/05/24 14:50 IMPRESSION: 1. Patchy airspace disease of the left lung field could be atelectasis and/or multifocal pneumonia. Underlying pulmonary mass can not be clearly visualized as in CT dated 09/13/2024. 2. Cardiomegaly with mild congestion. Reading Location: [facility] Chest CTA 10/05/24 15:40 IMPRESSION: 1. No pulmonary embolism is identified. Some of the distal pulmonary arteries cannot be evaluated due to suboptimal opacification. 2. 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 Associated atelectasis of the lingula, new since prior exam. 3. Moderate esophageal hiatal hernia. 4. 2.5 cm subpleural nodule of the left lower lobe, unchanged. Reading Location: [facility] Discharge Plan Triage Chief Complaint: Shortness of Breath ED Provider: Marty Woods Dx/Rx/DC Orders Clinical Impression: Acute hypoxemic respiratory failure, Dyspnea on exertion, Pleural effusion on left, Mass of left lung Prescriptions: No Action cholecalciferol (vitamin D3) 25 mcg (1,000 unit) capsule 25 mcg PO QDAY multivitamin Tablet 1 tab PO QAM omega-3 fatty acids 1,000 mg capsule 1,000 mg PO QDAY albuterol sulfate 2.5 mg /3 mL (0.083 %) solution for nebulization 2.5 mg inhalation PRN PRN (Reason: shortness of breath or wheezing) Patient Comments: [NO ORIGINAL SIG] buspirone 10 MG tablet 10 mg PO TID albuterol sulfate 1 INHALER inhaler 1 - 2 puff inhalation Q4H PRN PRN (Reason: Sob &/Or Wheezing) loratadine 10 MG tablet 10 mg PO DAILY cetirizine [24Hour Allergy] 10 mg tablet 10 mg PO DAILY melatonin 2.5 mg tablet,chewable 2.5 mg PO QHS valacyclovir 500 mg tablet 500 mg PO BID simvastatin 20 mg tablet 20 mg PO QHS vitamin E 268 mg (400 unit) capsule 268 mg PO DAILY meloxicam 15 mg tablet 15 mg PO DAILY gabapentin 300 mg capsule 300 mg PO TID oxycodone-acetaminophen 5-325 mg tablet 1 tab PO TID PRN PRN (Reason: pain) trazodone 100 mg tablet 100 mg PO QHS hydrochlorothiazide 25 mg tablet 25 mg PO DAILY budesonide-formoterol 80-4.5 mcg/actuation HFA aerosol inhaler 1 inh INHALATION .x4 Patient Comments: [NO ORIGINAL SIG] Rx Instructions: 2 puffs in morning, 2 puffs at night Primary Care Provider: Tu Hector Referrals: Tu Hector DO [Primary Care Provider] - Print Language: Bolivian Disposition Disposition: DC/Tx to Another Type of HCF What to do if you have Problems For any increased pain, shortness of breath, bleeding, nausea or vomiting, chestpain, or any unexpected problems, contact your Primary Care Provider. Call [facility] ([phone]) or report to the closest Emergency Room. Call 911 if necessary. 10/05/24 1720 <Electronically signed by Marty Woods DO> Cosigner Signature (if applicable): CC: Dr. Tu Hector DO ~ Signed [facility] Work Phone: [phone] [phone] Telephone encounter Note* Telephone Encounter - Sydnee Sy - 10/05/2024 1:52 PM EDT Patient is active with Donald Centeno for EBUS/ENB 25271/37176 per code check [id number] Miscellaneous Notes* Telephone Encounter - Sydnee Sy - 10/05/2024 1:52 PM EDT Patient is active with Donald Centeno for EBUS/ENB 72768/25514 per code check * Telephone Encounter - Ronda Malloy RN - 10/05/2024 1:10 PM EDT Instructions EBUS Endobronchial Ultrasound Procedure Date: October 09, 2024 Time: 1:30 PM Arrival Time: 12:00 PM Physician: Dr. Mejia Location: [facility], Endoscopy Department, [address] [place] [address] Please arrive at the hospital registration desk 1.5 hours prior to scheduled start of procedure. Make sure you have a known responsible adult to transport you home from the hospital as you will not be permitted to drive. Your procedure will be cancelled if you do not have someone to take you home. You can only use a taxi/bus/Uber/medical coroner transport technician if you have a known responsible adult to go with you. You may use [employer]. Each patient will receive one validation ticket for [employer]. Do not drink alcohol before or after your procedure. No smoking of any kind and no chewing tobacco six hours prior to your procedure. If you experience any fever/sick symptoms prior to procedure, please call the nurse. Bring your insurance card and photo ID with you. 8 hours prior to scheduled procedure (5:30 AM) is the cut off for solid foods or thick liquids. Youmay have clear liquids (black coffee or tea without creamer, water, soda, broth and any juices you can see through without pulp until 2 hours (11:30) prior to your scheduled start. Any blood thinningmedications like Coumadin, Warfarin, Jantoven, Effient, Eliquis, Xarelto, Pradaxa, Pletal, Plavix, Bilinta, Heparin, Lovenox, Fragmin and Aspirin may need to be held prior to the procedure. Contact the nurse if you take any of these medications. Please refrain from taking any Aspirin and/or non-steroidal anti-inflammatory medications (i.e. Advil, Aleve, Ibuprofen, Motrin, Naprosyn, Naproxen, Voltaren, Diclofenac, Celebrex, Mobic, Meloxicam) for 5 days prior to procedure. Tylenol (acetaminophen)is safe to use prior to procedure. If you are diabetic, please contact your physician that manages your medications and/or insulin for any adjustments that may be needed while you are on clear liquids then fasting for the majority of the day until after your procedure. Other medications can be taken as usual up to 2 hours (11:30 AM) prior as long as you are able to tolerate them on an empty stomach. Nothing by mouth after 11:30 AM. From registration you will go to the endoscopy unit, the staff there will get you checked in and start an intravenous catheter (IV). Our Anesthesia Team will ask you some health history questions prior and will be there to monitor you for the duration of your procedure. Dr. Mejia will be availableto speak with you prior to your procedure in case you have any questions. The procedure itself usually lasts about 1.5 hours and you will be asleep the entire time. After the procedure you will be taken to the recovery area for monitoring. The procedure is planned as outpatient, and you will be discharged the same day. Estimated time at the hospital ranges from 3-4 hours the day of the procedure. The physician will use a small, flexible scope to go through your mouth and into the lung to samplethe area(s) that were discussed with you. The scope has a channel that tools are inserted in to biopsy, collect specimens and/or wash the particular area. The physician will discuss any initial findings post procedure at the hospital with you. Final results typically come back within a week and a follow up will be scheduled based on the physician's recommendation. You are scheduled for a follow up appointment October 17, 2024 at 11:[address] Johnson at [address] [place] [address]. [facility], [place], [address] to discuss results. Things to look for post procedure: Fever greater than 101F Coughing up/spitting up bright red blood greater than a teaspoon Increased Shortness of breath/distress and/ or sudden onset of chest pain (call 911 and head to [facility] emergency department) You will be sent home with discharge instructions. You can eat and drink as tolerated post procedure. You may experience some fatigue, irritation of the throat, increased coughing, and/or pink-blood tinged mucus after the procedure. This is normal and be expected to last about 24-48 hours. Over thecounter medications such as lozenges, cough drops, chloraseptic sprays can help these symptoms. If you have any questions, please call: [phone] RN Clinical Coordinator [facility] [address] [place] [address], [address] [place] [address] Procedure placed on physician's outlook calendar? yes Does patient take blood thinners? No Does patient take ASA?No Does patient take NSAIDS? No States not taking Mobic Does patient take diabetic medications? No Does patient take GLP1 meds? No Does patient have Pacemaker, defibrillator, life vest, other implants? No Recent illness or covid exposure? No Chance of ? No Patient aware will need transportation home from hospital? Yes Patient instructed to bring insurance card, photo ID and mask? Yes Surgery Scheduling Patient notified of procedure date, time, prep/NPO status, arrival time, location and entrance, must have a ride, and to bring: drivers license, insurance card, mask, med list. Reviewed prep and itinerary with patient? yes Patient voices understanding? Yes documented in this [facility]03-20-2025 Telephone encounter Note* Telephone Encounter - Ronda Malloy RN - 10/05/2024 1:10 PM EDT Instructions EBUS Endobronchial Ultrasound Procedure Date: October 09, 2024 Time: 1:30 PM Arrival Time: 12:00 PM Physician: Dr. Mejia Location: [facility], Endoscopy Department, [address] [place] [address] Please arrive at the hospital registration desk 1.5 hours prior to scheduled start of procedure. Make sure you have a known responsible adult to transport you home from the hospital as you will not be permitted to drive. Your procedure will be cancelled if you do not have someone to take you home. You can only use a taxi/bus/Uber/medical coroner transport technician if you have a known responsible adult to go with you. You may use [employer]. Each patient will receive one validation ticket for [employer]. Do not drink alcohol before or after your procedure. No smoking of any kind and no chewing tobacco six hours prior to your procedure. If you experience any fever/sick symptoms prior to procedure, please call the nurse. Bring your insurance card and photo ID with you. 8 hours prior to scheduled procedure (5:30 AM) is the cut off for solid foods or thick liquids. Youmay have clear liquids (black coffee or tea without creamer, water, soda, broth and any juices you can see through without pulp until 2 hours (11:30) prior to your scheduled start. Any blood thinningmedications like Coumadin, Warfarin, Jantoven, Effient, Eliquis, Xarelto, Pradaxa, Pletal, Plavix, Bilinta, Heparin, Lovenox, Fragmin and Aspirin may need to be held prior to the procedure. Contact the nurse if you take any of these medications. Please refrain from taking any Aspirin and/or non-steroidal anti-inflammatory medications (i.e. Advil, Aleve, Ibuprofen, Motrin, Naprosyn, Naproxen, Voltaren, Diclofenac, Celebrex, Mobic, Meloxicam) for 5 days prior to procedure. Tylenol (acetaminophen)is safe to use prior to procedure. If you are diabetic, please contact your physician that manages your medications and/or insulin for any adjustments that may be needed while you are on clear liquids then fasting for the majority of the day until after your procedure. Other medications can be taken as usual up to 2 hours (11:30 AM) prior as long as you are able to tolerate them on an empty stomach. Nothing by mouth after 11:30 AM. From registration you will go to the endoscopy unit, the staff there will get you checked in and start an intravenous catheter (IV). Our Anesthesia Team will ask you some health history questions prior and will be there to monitor you for the duration of your procedure. Dr. Mejia will be availableto speak with you prior to your procedure in case you have any questions. The procedure itself usually lasts about 1.5 hours and you will be asleep the entire time. After the procedure you will be taken to the recovery area for monitoring. The procedure is planned as outpatient, and you will be discharged the same day. Estimated time at the hospital ranges from 3-4 hours the day of the procedure. The physician will use a small, flexible scope to go through your mouth and into the lung to samplethe area(s) that were discussed with you. The scope has a channel that tools are inserted in to biopsy, collect specimens and/or wash the particular area. The physician will discuss any initial findings post procedure at the hospital with you. Final results typically come back within a week and a follow up will be scheduled based on the physician's recommendation. You are scheduled for a follow up appointment October 17, 2024 at 11:[address] Johnson at [address] [place] [address] [place]. [facility], [place], [facility] to discuss results. Things to look for post procedure: Fever greater than 101F Coughing up/spitting up bright red blood greater than a teaspoon Increased Shortness of breath/distress and/ or sudden onset of chest pain (call 911 and head to [facility] emergency department) You will be sent home with discharge instructions. You can eat and drink as tolerated post procedure. You may experience some fatigue, irritation of the throat, increased coughing, and/or pink-blood tinged mucus after the procedure. This is normal and be expected to last about 24-48 hours. Over thecounter medications such as lozenges, cough drops, chloraseptic sprays can help these symptoms. If you have any questions, please call: [phone] RN Clinical Coordinator [facility] [address] [place] [address], [address] [place] [address] Procedure placed on physician's outlook calendar? yes Does patient take blood thinners? No Does patient take ASA?No Does patient take NSAIDS? No States not taking Mobic Does patient take diabetic medications? No Does patient take GLP1 meds? No Does patient have Pacemaker, defibrillator, life vest, other implants? No Recent illness or covid exposure? No Chance of ? No Patient aware will need transportation home from hospital? Yes Patient instructed to bring insurance card, photo ID and mask? Yes Surgery Scheduling Patient notified of procedure date, time, prep/NPO status, arrival time, location and entrance, must have a ride, and to bring: drivers license, insurance card, mask, med list. Reviewed prep and itinerary with patient? yes Patient voices understanding? Yes [id number] Telephone encounter Note* Telephone Encounter - Aixa Roche RCP - 10/03/2024 3:12 PM EDT Navigator contacted the office of Rhiannon Georges CNP at [facility]. Requested pulmonary function test and will scanned to media tab when available. [facility] [id number] Miscellaneous Notes* Telephone Encounter - Aixa Roche RCP - 10/03/2024 3:12 PM EDT Navigator contacted the office of Rhiannon Georges CNP at [facility]. Requested pulmonary function test and will scanned to media tab when available. * Telephone Encounter - Aixa Roche RCP - 10/03/2024 1:27 PM EDT Discussed with Dr. Johnson during [facility] appt. Patient has a pericardial effusion and cardiac lesion. She has been lightheaded for a few days and expedited cardiology eval is recommended. Spoke with cardiology office at [phone] and arranged for appt with Dr. Luis at [address] [facility] [address] Dr. Johnson will send patient right over. * Telephone Encounter - Aixa Roche RCP - 10/03/2024 12:19 PM EDT Navigator received request from cardiothoracic surgery office to assist with expediting lung noduleclinic evaluation. Patient lives far away and [facility] is hoping patient can be seen while on campus. Patient was seen by Dr. Silvio Fortune this morning and needs pulmonary evaluation prior to surgical consideration. Verified prior images and reports from [facility] are available for review in PACS.Scanned imaging reports including CT chest imaging, thyroid imaging and provider office notes from medical oncology and pulmonary in [place] to the media tab. Patient will see Dr. Lacho Kamara now to further evaluate left hilar mass and adenopathy firstnoted on CT imaging 09/13/2024 in [place]. documented in this [facility]03-18-2025 History of Present illness Narrative* Wilfrido Luis DO - 10/03/2024 2:30 PM EDT Images from the original note were not included. [facility] Cardiology Note DATE of SERVICE:10/03/24 TIME of SERVICE: 2:41 PM Chief Complaint: Chief Complaint Patient presents with New Patient Shortness of Breath >1yr History of PresentIllness: Karina Fernando is a 73 y.o. female with a long history of tobacco use who was evaluated for shortness of breath. The workup in [facility] revealed a very large (6.2 x 4.7 cm) hilar mass. She was seen by pulmonary and scheduled for a biopsy also seen by Dr. Fortune. In the meantime however an echocardiogram that was done at [facility] reported a small pericardial effusion and a mass on the patient's right intra-atrial septum. Her biopsy was canceled and she was referred here to cardiology for an evaluation. I reviewed the echocardiogram that was done at [place], there is a very small hemodynamically insignificant pericardial effusion. She has normal biventricular systolic function and no major valvular function. She does have a very small 2.0 x 20. Cm well-circumscribed circular cardiac mass attached to the midportion of the intra-atrial septum. 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 I saw no other abnormalities on the echo that were concerning. The patient is free of any othercardiovascular symptoms. She does have a thyroid mass and that is scheduled for a biopsy as well. 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 No pertinent surgical history. Family History Family History Problem Relation Name Age of Onset Cancer Mother Cancer Father No Known Problems Sister No Known Problems Brother Heart disease Brother Social History Social History Tobacco Use Smoking status: Former Average packs/day: 1 pack/day for 51.9 years (51.9 ttl pk-yrs) Types: Cigarettes Start date: 1972 Passive exposure: Past Smokeless tobacco: Never Vaping Use Vaping status: Never Used Substance Use Topics Alcohol use: Not Currently Drug use: Never Comment: caffeine: 2 cups of coffee per day, 2 small cans of diet soda Allergies: Allergies Allergen Reactions Alendronate Muscle ache, Swelling / lump finding Cefaclor Hives Erythromycin Nausea And Vomiting Erythromycin Base Nausea Only Famciclovir Hives Gabapentin Unknown Morphine Nausea And Vomiting Penicillins Hives Tramadol Hives, Itching and Nausea And Vomiting Hydrochlorothiazide W-Triamterene Rash Medications: Current Outpatient Medications: acetaminophen (Tylenol Extra Strength) 500 MG tablet, Take by mouth., Disp: , Rfl: albuterol (Ventolin HFA) 108 (90 Base) MCG/ACT inhaler, Inhale 2 puffs every 4 hours as needed for wheezing or shortness of breath., Disp: 8 g, Rfl: 11 busPIRone (Buspar) 10 MG tablet, Take 10 mg by mouth 3 times daily as needed., Disp: , Rfl: cetirizine (ZyrTEC) 10 MG tablet, Take 10 mg by mouth daily., Disp: , Rfl: cholecalciferol (Vitamin D-3) 25 MCG (1000 UT) capsule, Take 1,000 Units by mouth daily., Disp: , Rfl: Khzntfeynwn-Xhzyrzglk-Fdtzmm (Trelegy Ellipta) 100-62.5-25 MCG/ACT aerosol powder , Inhale 1 Inhalation daily., Disp: 60 each, Rfl: 5 gabapentin (Neurontin) 300 MG capsule, Take 300 mg by mouth 3 times daily., Disp: , Rfl: hydroCHLOROthiazide (HYDRODiuril) 25 MG tablet, Take 25 mg by mouth daily., Disp: , Rfl: loratadine (Claritin) 5 MG chewable tablet, Chew 5 mg daily., Disp: , Rfl: Melatonin 2.5 MG chewable tablet, Chew Daily as needed., Disp: , Rfl: meloxicam (Mobic) 15 MG tablet, Take by mouth daily., Disp: , Rfl: Multiple Vitamin (multivitamin) capsule, Take 1 capsule by mouth daily., Disp: , Rfl: [place]-3 Fatty Acids (OMEGA 3 500 PO), Take by mouth daily., Disp: , Rfl: oxyCODONE-acetaminophen (Percocet) 5-325 MG tablet, , Disp: , Rfl: simvastatin (Zocor) 20 MG tablet, Take 20 mg by mouth Nightly., Disp: , Rfl: traZODone (Desyrel) 100 MG tablet, Take 100 mg by mouth Nightly., Disp: , Rfl: valACYclovir (Valtrex) 500 MG tablet, Take by mouth daily., Disp: , Rfl: Vitamin E 268 MG (400 UNIT) capsule, Take by mouth daily., Disp: , Rfl: Review of Systems: Review of Systems Constitutional: Negative. HENT: Negative. Respiratory: Positive for shortness of breath. Negative for chest tightness. Cardiovascular: Negative for chest pain, palpitations and leg swelling. Neurological: Negative. Psychiatric/Behavioral: Negative. Physical Examination: Vitals: Vitals: 10/03/24 1356 BP: 108/62 BP Location: Left arm Patient Position: Sitting BP Cuff Size: Adult Pulse: 76 Weight: 163 lb (73.9 kg) Height: 5' 3 (1.6 m) Body mass index is 28.87 kg/m . Physical Exam Constitutional: Appearance: Normal appearance. HENT: Head: Normocephalic and atraumatic. Eyes: Extraocular Movements: Extraocular movements intact. Conjunctiva/sclera: Conjunctivae normal. Neck: Vascular: No carotid bruit. Cardiovascular: Pulses: Carotid pulses are 2+ on the right side and 2+ on the left side. Radial pulses are 2+ on the right side and 2+ on the left side. Femoral pulses are 2+ on the right side and 2+ on the left side. Right popliteal pulse not accessible and left popliteal pulse not accessible. Dorsalis pedis pulses are 1+ on the right side and 1+ on the left side. Posterior tibial pulses are 1+ on the right side and 1+ on the left side. Heart sounds: Heart sounds are distant. No murmur heard. Pulmonary: Effort: Pulmonary effort is normal. Comments: Decreased breath sounds bilaterally no rales or rhonchi. Abdominal: General: Bowel sounds are normal. Palpations: Abdomen is soft. Musculoskeletal: General: Normal range of motion. Cervical back: Normal range of motion and neck supple. Right lower leg: No edema. Left lower leg: No edema. Skin: General: Skin is warm and dry. Neurological: General: No focal deficit present. Mental Status: She is alert and oriented to person, place, and time. Mental status is at baseline. Psychiatric: Mood and Affect: Mood normal. Behavior: Behavior normal. Thought Content: Thought content normal. Laboratory Tests: 09/25/24 Echo-Chyna (per pulmonary note states the following): 2.0 cm x 1.9 cm spherical mass on the right side of the interatrial septum, a small pericardial effusion with RA collapse. 09/13/24- CTA [facility] Assessment and Plan: BSmall hemodynamically insignificant pericardial effusion. At this juncture, there really is not much to be done for this. If the workup results to cancer this may indicate pericardial involvement however, I saw nothing on the echo to implicate that at this time. This needs to be followed. 2. Small mass attached to the right side of the interatrial septum. 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 It is unlikely this represents a primary malignant cardiac tumor or metastasis, however those do remain in the differentialalthough I think extremely unlikely. Further imaging would require transesophageal echo, or cardiacMRI. I would probably favor the latter. It situated on the right side of the heart so there is no urgency to the workup for this. 3. Hilar mass in a long 10 standing tobacco user. Obviously, lung cancer is first and foremost hereand I would proceed with an expedited workup for the lung cancer. There were no cardiovascular issues which would or should limit standard workup for this. My plan is to see her back in the office in about 6 weeks. Will continue with our workup based on the results of the pulmonary workup. Thank you very much for the opportunity to see this nice lady in consultation keep you posted on her progress with our workup, if any interim you have any questions please do not hesitate to contact me documented in this encounterSChillicothe [id number] Telephone encounter Note* Telephone Encounter - Aixa Roche RCP - 10/03/2024 1:27 PM EDT Discussed with Dr. Johnson during [facility] appt. Patient has a pericardial effusion and cardiac lesion. She has been lightheaded for a few days and expedited cardiology eval is recommended. Spoke with cardiology office at [phone] and arranged for appt with Dr. Luis at [address] [place] [address] Johnson will send patient right over. [facility] [id number] Telephone encounter Note* Telephone Encounter - Aixa Roche RCP - 10/03/2024 12:19 PM EDT Navigator received request from cardiothoracic surgery office to assist with expediting lung noduleclinic evaluation. Patient lives far away and CTS is hoping patient can be seen while on campus. Patient was seen by Dr. Silvio Fortune this morning and needs pulmonary evaluation prior to surgical consideration. Verified prior images and reports from [facility] are available for review in PACS.Scanned imaging reports including CT chest imaging, thyroid imaging and provider office notes from medical oncology and pulmonary in [place] to the media tab. Patient will see Dr. Lacho Kamara now to further evaluate left hilar mass and adenopathy firstnoted on CT imaging 09/13/2024 in [place]. [facility] [id number] History of Present illness Narrative* Rachel MonkJhonathan Kamara DO - 10/03/2024 12:15 PM EDT [facility], Pulmonary Critical Care Medicine [address] [place] [id number] Pulmonary Patient Visit - New 10/03/2024 Referring Physician: TU HECTOR DO Reason for Referral: SOB History of Present Illness Karina Fernando is a 73 y.o. F with history of recurrent sinus infections, COPD on symbicort/albuterol,HTN who presented for a left hilar mass. Stated that in May she began having shortness of breath which worsened until she went to the ER in [place] in August. Found on CT with a left hilar mass, left upper lobe pleural-based mass, and moderate pericardial effusion. Evaluated by oncology and recommended for PET/CT, MRI brain, and biopsy. Established with pulmonology and had been planned forEBUS in [place] but canceled after TTE demonstrated a right atrial mass and moderate RA collapse due to a small pericardial effusion. Evaluated by Dr. Fortune earlier today. Patient reports dyspnea has continued to progress, experiences when she is sitting upright or with exertion. Has had a cough and occasional wheezing. Now on Symbicort and using albuterol 4 times daily. Reported substernal chest discomfort since May. Has had lightheadedness and dizziness for the past 3 days. Has a history of facial BCC s/p excision 2022. 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 No pertinent surgical history. Allergies Allergies Allergen Reactions Alendronate Muscle ache, Swelling / lump finding Cefaclor Hives Erythromycin Nausea And Vomiting Erythromycin Base Nausea Only Famciclovir Hives Gabapentin Unknown Morphine Nausea And Vomiting Penicillins Hives Tramadol Hives, Itching and Nausea And Vomiting Hydrochlorothiazide W-Triamterene Rash Medications Medication Documentation Review Audit Reviewed by Rachel Johnson DO (Physician) on 10/03/24 at 1703 Medication Order Taking? Sig Documenting Provider Last Dose Status acetaminophen (Tylenol Extra Strength) 500 MG tablet [id number] Yes Take by mouth. Slick Garcia MD Not Taking Active albuterol (Ventolin HFA) 108 (90 Base) MCG/ACT inhaler [id number] Inhale 2 puffs every 4 hours as needed for wheezing or shortness of breath. Rachel Kamara DO Active busPIRone (Buspar) 10 MG tablet [id number] Yes Take 10 mg by mouth 3 times daily as needed. Slick Garcia MD Taking Active cetirizine (ZyrTEC) 10 MG tablet [id number] Yes Take 10 mg by mouth daily. Slick ProviderMD Taking Active cholecalciferol (Vitamin D-3) 25 MCG (1000 UT) capsule [id number] Yes Take 1,000 Units by mouth daily. Historical ProviderMD Active Gmdttofvcxj-Eerkjrqyf-Eeclwg (Trelegy Ellipta) 100-62.5-25 MCG/ACT aerosol powder [id number] Inhale 1 Inhalation daily. Rachel Johnson DO Active gabapentin (Neurontin) 300 MG capsule [id number] Yes Take 300 mg by mouth 3 times daily. Slick Garcia MD Not Taking Active hydroCHLOROthiazide (HYDRODiuril) 25 MG tablet [id number] Yes Take 25 mg by mouth daily. Historical ProviderMD Taking Active loratadine (Claritin) 5 MG chewable tablet [id number] Yes Chew 5 mg daily. Historical ProviderMD Active Melatonin 2.5 MG chewable tablet [id number] Yes Chew Daily as needed. Slick ProviderMD Not Taking Active meloxicam (Mobic) 15 MG tablet [id number] Yes Take by mouth daily. Slick ProviderMD Not TakingActive Multiple Vitamin (multivitamin) capsule [id number] Yes Take 1 capsule by mouth daily. Slick Garcia MD Active [place]-3 Fatty Acids (OMEGA 3 500 PO) [id number] Yes Take by mouth daily. Historical ProviderMD Taking Active oxyCODONE-acetaminophen (Percocet) 5-325 MG tablet [id number] Yes Historical Provider, Taking Active simvastatin (Zocor) 20 MG tablet [id number] Yes Take 20 mg by mouth Nightly. Historical Provider, Taking Active traZODone (Desyrel) 100 MG tablet [id number] Yes Take 100 mg by mouth Nightly. Historical Provider, Taking Active valACYclovir (Valtrex) 500 MG tablet [id number] Yes Take by mouth daily. Historical Provider, Not Taking Active Vitamin E 268 MG (400 UNIT) capsule [id number] Yes Take by mouth daily. Historical Provider, Taking Active Social History Social History Tobacco Use Smoking status: Former Average packs/day: 1 pack/day for 51.9 years (51.9 ttl pk-yrs) Types: Cigarettes Start date: 1972 Passive exposure: Past Smokeless tobacco: Never Substance Use Topics Alcohol use: Not Currently FamilyHistory Family History Problem Relation Name Age of Onset Cancer Mother Cancer Father No Known Problems Sister No Known Problems Brother Heart disease Brother Review of Systems Review of Systems Respiratory: Positive for cough, shortness of breath and wheezing. Cardiovascular: Positive for chest pain. Physical Exam Vitals: 10/03/24 1213 BP: 127/86 BP Location: Left arm Patient Position: Sitting BP Cuff Size: Adult Pulse: 98 Resp: 18 SpO2: 93% Weight: 163 lb (73.9 kg) Height: 5' 3 (1.6 m) Physical Exam Vitals reviewed. Constitutional: General: She is not in acute distress. Appearance: Normal appearance. HENT: Head: Normocephalic and atraumatic. Nose: No congestion. Mouth/Throat: Mouth: Mucous membranes are moist. Pharynx: No oropharyngeal exudate. Eyes: General: No scleral icterus. Extraocular Movements: Extraocular movements intact. Cardiovascular: Rate and Rhythm: Normal rate and regular rhythm. Pulmonary: Effort: Pulmonary effort is normal. No respiratory distress. Breath sounds: No wheezing, rhonchi or rales. Comments: Diminished breath sounds left side Musculoskeletal: General: No swelling or tenderness. Skin: General: Skin is warm and dry. Neurological: Mental Status: She is alert and oriented to person, place, and time. Psychiatric: Mood and Affect: Mood normal. Labs: Available studies were reviewed Radiology: Personally reviewed and interpreted Chest CTA 09/13/2024 ([facility], report in media, images in PACS): Left hilar mass, left upper lobe pleural-based mass and large prevascular lymph node concerning for malignancy. Diffuse emphysematous changes. Moderate pericardial effusion. TTE 09/25/2024 ([facility], report in media): LV systolic function is normal. RVSP 35 mmHg. Right atrium with 2 cm x 1.9 cm spherical mass. Small pericardial effusion. There is moderate RA collapse for less than 50% of the cardiac cycle. PFT's: 09/25/2024: Severe obstruction on spirometry, air trapping, moderately reduced diffusion capacity Assessment/plan: Left hilar mass Left upper lobe mass Adenopathy Right atrial mass Pericardial effusion Thyroid nodules COPD Former smoker -Chest imaging reviewed with patient and family including left hilar lesion extending superiorly tothe mediastinum and left upper lobe lesion. Agree with bronchoscopy with EBUS for tissue diagnosis.Procedure explained in detail to patient including risks of anesthesia, bleeding, pneumothorax. Denied any history of coagulopathies, liver disease, is not on anticoagulation. Referred to cardiology clinic this afternoon for atrial lesion and pericardial effusion with episodes of lightheadedness. Once medically optimized from cardiology standpoint will proceed with bronchoscopy. -Evaluated by CTS Dr. Frotune this morning, PET/CT and MRI brain pending -Pending biopsy of thyroid nodules -Symptomatic on Symbicort, increased to Trelegy. Refilled albuterol as needed. Follow up: After bronchoscopy to review results Please seek immediate medical attention for any worsening or worrying new symptoms. Patient education, benefits, risks, and precautions provided. Management plan was discussed in detail and in agreement. All questions or concerns answered to satisfaction and understood. Rachel Johnson DO 5:08 PM 10/03/24 Pulmonary and Critical Care Medicine documented in this [facility]03-18-2025 Instructions* Patient Instructions* Jay Zimmerman MA - 10/03/2024 12:15 PM EDT YOUR APPOINTMENT TODAY WAS WITH THE [facility] LUNG NODULE CLINIC, COPD CLINIC, PULMONARY AND SLEEP MEDICINE OFFICE. PLEASE CALL OUR OFFICE AT [phone] IF YOU HAVE NOT RECEIVED YOUR TEST RESULTS 7 DAYS AFTER TESTING IS COMPLETED. PLEASE REMEMBER TO REQUEST REFILLS AT YOUR OFFICE VISITS. PHONE/FAX REQUESTS REQUIRE 48-72 HOURS FOR RESPONSE. A FRIENDLY REMINDER COPAYS ARE DUE AT TIME OF SERVICE. THANK YOU. Our Patients Are Important! We want to improve and you can help. After your visit we want you to feel: Listened to, Respected and have your health care explained. You may receive a survey asking you about your visit. Please complete the survey. We will use your feedback to make improvements. COVID-19 VACCINATION INFORMATION: PH. [phone] [email or web address] [facility] Central Scheduling [phone] [facility] Sleep Scheduling [phone] documented in this [facility]03-18-2025 NoteOrders Placed This Encounter Procedures MR brain w and wo contrast Standing Status: Future Standing Expiration Date: 10/03/2025 Order Specific Question: Record Decision Support information? Answer: No Order Specific Question: Decision Support Exception Answer: Emergency Medical Condition (MA) [1] Order Specific Question: Does the patient have an implantable device (pacemaker, defibrillator, stimulator, etc.)? Answer: No Order Specific Question: Per protocol MR contrast Answer: Gadavist 1.0mmol/mL, 0.9% Normal Saline 10ml after contrast admin, may repeat x1 PET/CT skull base to mid thigh Standing Status: Future Standing Expiration Date: 10/03/2025 Order Specific Question: Record Decision Support information? Answer: No Order Specific Question: Decision Support Exception Answer: Emergency Medical Condition (MA) [1] Order Specific Question: Is this the initial or subsequent exam for the patient's oncological treatment? Answer: Initial Creatinine, Serum Standing Status: Future Number of Occurrences: 1 Standing Expiration Date: 10/03/2025[facility]03-18-2025 History of Present illness Narrative* Silvio Fortune MD - 10/03/2024 11:15 AM EDT Images from the original note were not included. [facility]ARDIOVASCULAR [facility]ORACIC SURGERY [address] [facility] [address] Dept: [phone] Dept Loc: [phone] Visit type: New Reason for Visit: AP window, left hilar adenopathy and left upper lobe pleural- based mass. In addition, a small right atrial mass is present of uncertain etiology Assessment and plan This 73-year-old patient with standing COPD was found to have a left hilar mass, involvement of theAP window, and a pleural-based lesion on the left lung that appears smooth. This is concerning for malignancy. I would recommended EBUS/ENB to evaluate the left hilar adenopathy. A PET scan will be required for further staging. An MRI of the brain will be required for staging purposes. Further recommendations will follow once this testing has been completed. We will review the echocardiogram to further evaluate the right atrial mass. At the present time, this is likely unrelated tothis is but shows areas that may be consistent with malignancy. History of Present Illness Karina Fernando is a 73 y.o. female referred by ROWDY Rothman for right atrial mass and pericardial effusion. Per note, pt had presented to [place] ED in August 2023 for dyspnea. CTA chest showed left hilar mass, left upper lobe pleural-based mass and large prevascular lymph node concerning for malignancy.Also showed a moderate pericardial effusion and large hiatal hernia. Pt was treated for a sinus infe ction, given Doxycycline and steroids, and discharged. Pt was referred to Oncology and was evaluated on 09/18/[address] guided biopsy, PET scan, and MRI brain. PCP ordered a thyroidultrasound which was completed on 09/19/24 and demonstrated thyromegaly and multinodular goiter. PCP also ordered an echocardiogram which was completed on 09/25/24 and demonstrated a 2.0 cm x 1.9 cm spherical mass on the right side of the interatrial septum, a small pericardial effusion with RA collapse. Pt is a former smoker. Pt is here now for an evaluation. Past Medical History Past Medical History: Diagnosis Date Fracture of ankle Hypertension Mass of soft tissue of upper arm LEFT ARM Spondylolisthesis, lumbar region Past Surgical History No past surgical history on file. Family History No family history on file. Social History Social History Tobacco Use Smoking status: Every Day Current packs/day: 0.50 Types: Cigarettes Smokeless tobacco: Never Substance Use Topics Alcohol use: Yes Drug use: Never Allergies Allergies Allergen Reactions Alendronate Other reaction(s): Muscle ache, Swelling / lump finding Cefaclor Hives Other reaction(s): hives, Hives and/or rash Erythromycin Other reaction(s): GI Upset, Stomach pain, stomach upset Erythromycin Base Nausea Only Famciclovir Other reaction(s): hives Gabapentin Other reaction(s): Unknown Morphine Other reaction(s): stomach upset, Vomiting Penicillins Hives Other reaction(s): hives, HIVES, Hives and/or rash Tramadol Other reaction(s): Hives, Itching, Severe nausea & vomiting, stomach upset, Vomiting Rash And Itching Hydrochlorothiazide W-Triamterene Rash Medications Current Outpatient Medications: acetaminophen (Tylenol Extra Strength) 500 MG tablet, Take by mouth., Disp: , Rfl: busPIRone (Buspar) 10 MG tablet, Take 10 mg by mouth 3 times daily as needed., Disp: , Rfl: cetirizine (ZyrTEC) 10 MG tablet, Take 10 mg by mouth daily., Disp: , Rfl: gabapentin (Neurontin) 300 MG capsule, Take 300 mg by mouth 3 times daily., Disp: , Rfl: hydroCHLOROthiazide (HYDRODiuril) 25 MG tablet, Take 25 mg by mouth daily., Disp: , Rfl: Melatonin 2.5 MG chewable tablet, Chew., Disp: , Rfl: meloxicam (Mobic) 15 MG tablet, Take by mouth., Disp: , Rfl: [place]-3 Fatty Acids (OMEGA 3 500 PO), Take by mouth., Disp: , Rfl: oxyCODONE-acetaminophen (Percocet) 5-325 MG tablet, , Disp: , Rfl: simvastatin (Zocor) 20 MG tablet, Take 20 mg by mouth Nightly., Disp: , Rfl: traZODone (Desyrel) 100 MG tablet, Take 100 mg by mouth Nightly., Disp: , Rfl: valACYclovir (Valtrex) 500 MG tablet, Take by mouth., Disp: , Rfl: Vitamin E 268 MG (400 UNIT) capsule, Take by mouth., Disp: , Rfl: Review of Systems Review of Systems Constitutional: Positive for fatigue. HENT: Positive for voice change (voice hoarseness). Respiratory: Positive for cough (dry cough). Cardiovascular: Positive for chest pain (intermittent). Neurological: Positive for light-headedness (intermittent, started 3 days ago). All other systems reviewed and are negative. Physical Exam Vitals: There were no vitals taken for this visit. Constitutional: General: Not in acute distress. Appearance: Normal appearance. Not toxic-appearing. Ear, nose, mouth: Bilateral external ear and nose normal. Nose: Nose normal. Mouth: Appearance normal, no bleeding, moist mucus membranes Eyes: General: No scleral icterus. No discharge from bilateral eyes Extraocular Movements: Extraocular movements intact. Pupils equal and reactive bilaterally Cardiovascular: Heart: Regular rhythm. Normal heart sounds Edema: no edema in bilateral lower extremities Pulmonary: Effort: Pulmonary effort is normal. No respiratory distress. Breath sounds: Normal breath sounds. No wheezing. Chest wall: No tenderness. Abdominal: Appearance: Not distended Palpations: There is no abdominal tenderness, no guarding. Musculoskeletal: Bilateral upper and lower extremities: Normal range of motion, no deformity Head: Normocephalic and atraumatic. Neck: Normal range of motion and neck supple. No muscular tenderness. Lymphadenopathy: Cervical: No cervical adenopathy. Skin: General: Skin is warm and dry. Coloration: Skin is not jaundiced. Neurological: General: No focal deficit present. Cranial Nerves: No obvious cranial nerve deficit. Psychiatric: Mood and Affect: Mood normal. Thought Content: Thought content normal. Patient has good judgement and insight Mental Status: Alert and oriented to place, person, and time. Labs No results found for: WBC, HGB, PLT, NA, K, CREATININE Imaging TTE 09/25/24 Summary: 1. Left ventricle: The cavity size is normal. Wall thickness is mildly increased. Systolic functionis normal. The estimated ejection fraction is 60-65%. Wall motion is normal; there are no regional wall motion abnormalities. Normal diastolic function. 2. Ventricular septum: Thickness is mildly increased. Septal motion is dyssynergic. 3. Right ventricle: The RV systolic pressure by Doppler is 35 mm Hg. 4. Right atrium: There is a 2.0 cm (L) x 1.9 cm (W), spherical mass on the right side of the interatrial septum. Differential include thrombus. pt declined DEFINITY. The estimated right atrial pressure is 3 mm Hg. 5. Pericardium, extracardiac: A small pericardial effusion is identified. There is moderate RA collapse for less than 50% of the cardiac cycle. Recommendations: 1. RA Mass / thrombus attached to interatrial septum. Small pericardial effusion with RA collapse (<1/3rd of cardiac cycle). no conclusive evidence of tamponade. Presence of pericardial effusion and RA location of mass are concerning for malignant etiology. Recommend further evaluation with JUDD and or CMR. 2. While no clear echo features of cardiac tamponade, corelate clinically as there is brief atrial collapse. Left ventricle: The cavity size is normal. Wall thickness is mildly increased. Systolic function isnormal. The estimated ejection fraction is 60-65%. Wall motion is normal; there are no regional wall motion abnormalities. The wall mass is 129 g. The wall mass index is 71 g/m . Normal diastolic function. Ventricular septum: Thickness is mildly increased. Septal motion is dyssynergic. Left atrium: The atrium is normal in size. The volume index by biplane method is 11 ml/m . Right ventricle: The cavity size is normal. Systolic function is normal. The RV systolic pressure by Doppler is 35 mm Hg. Right atrium: The atrium is normal in size. There is a 2.0 cm (L) x 1.9 cm (W), spherical mass on the right side of the interatrial septum. Differential include thrombus. pt declined DEFINITY. The estimated right atrialpressure is 3 mm Hg. Mitral valve: The pressure half-time is 66 ms. The peak E/A ratio is 0.59. The valve area (LVOT continuity) is 2.4 cm . Doppler: There is no evidence for stenosis. There is no significant regurgitation. The mean diastolic gradient is 4 mm Hg. The valve area by pressure half-time is 3.3 cm . Aortic valve: The valve is trileaflet. The peak systolic velocity is 1.5 m/sec. The systolic velocity-time integral is 22.1 cm. The mean systolic gradient is 5 mm Hg. The LVOT to aortic valve VTI ratio is 0.79. The valve area by VTI is 2.5 cm . The valve area by peak velocity is 2.5 cm . Doppler: There is no stenosis. There is no significant regurgitation. Tricuspid valve: The regurgitant peak velocity is 2.8 m/sec. Doppler: There is no evidence for stenosis. There is mild regurgitation. Pulmonic valve: The peak systolic velocity is 1.06 m/sec. Doppler: There is no significant regurgitation. Aorta: Aortic root: The aortic root is normal. Systemic veins: Inferior vena cava: The IVC is normal-sized. Respirophasic diameter changes are in the normal range(> 50%). Pericardium: A small pericardial effusion is identified. Doppler: There is moderate RA collapse forless than 50% of the cardiac cycle. Atrial septum: Not well visualized. Thyroid US 09/19/24 FINDINGS: Size right thyroid lobe: 6.2 x 2.8 x 2.7 cm Size left thyroid lobe: 4.7 x 2.2 x 2.1 cm Size isthmus: 0.9 cm Texture: Heterogeneous Estimated total number of nodules greater than or equal to 1 cm: 6-10 Nodule#: # 1: Maximum size: 1.6 cm . All dimensions: 1.4 x 1.6 x 1.1 cm Location: Right Lower Composition: solid or almost completely solid: 2 points Echogenicity: hypoechoic: 2 points Shape: wider than tall: 0 points Margins: lobulated/irregular: 2 points Echogenic foci: none: 0 points ACR Total Points: 6; ACR TI-RADS risk category: TR4 - moderately suspicious nodule. Remainder of the enlarged thyroid gland demonstrates numerous adjacent spongiform lesions. IMPRESSION: Thyromegaly and multinodular goiter. 1. Nodule 1: ACR TI-RADS 2017 Category 4. Recommend: Ultrasound-guided fine needle aspiration CTA Chest 09/13/24 Patient Care Team: PCP: Tu Hector DO Hematology/Oncology: Alis Chance MD Disclaimer INFORMED CONSENT:The nature and purpose of the proposed treatment or procedure have been discussed.The risks and benefits of the proposed treatment or procedures have been reviewed. Alternatives have been reviewed in addition to the risks and benefits of not receiving treatments or undergoing procedures. Pursuant to this discussion, the patient agrees to undergo the proposed treatment or procedure. Captured images seen in this note from are not a substitute for a comprehensive interpretation of the entire data set as reflected by the interpreting physician with regard to radiology, echocardiography, and other diagnostic images. This note may have been dictated using [employer] Practice Edition 2.6 and/or [employer] Voice Recognition Feature. The document was proofread, however unrecognized voice recognition mental health program specialist errors may be present. 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 October 26, 2024 3:46pm Encounter for insertion of venous access port acute October 27 12:39pm Encounter for antineoplastic immunotherapy acute October 31, 2024 7:16am Encounter for chemotherapy management acute October 31, 2024 7:16am 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 October 31, 2024 7:16am Metastasis to liver acute October 31, 2024 7:16am 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 October 31, 2024 7:16am Hypokalemia acute November 09, 025 8:32am 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 November 09, 2024 8:32am Metastasis to liver acute November 09, 2024 8:32am 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 November 09, 2024 8:32am Pericardial effusion acute November 17, 2024 11:23am Right atrial mass acute November 11:23am Small cell lung cancer acute Ma y 2024 11:23am Mediastinal lymphadenopathy acute November 21, 2024 8:07am Constipation acute December 12 8:07am Delayed surgical wound healing acute December 12, 2024 8:07am Encounter for antineoplastic immunotherapy acute December 12, 2024 8 :07am Encounter for chemotherapy management acute December 12, 2024 8 :07am Mediastinal lymphadenopathy acute December 12, 2024 8:07am 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 December 12, 2024 8:07am Metastasis to liver acute November 172024 8:07am Small cell lung cancer acute Ma y 2024 8:07am Mediastinal lymphadenopathy acute January 02, 2025 9:04am [facility] Work Phone: 1(263) 354-915603-13-2025 Evaluation note* Diagnosis Onset Date Resolution Status Admit Date Shortness of breath acute September 28, 2024 9:34am 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 October 25, 2024 2:36pm Encounter for education acute A pril 2024 3:46pm 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 October 26, 2024 3:46pm Metastasis to liver acute October 26, 2024 3:46pm 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 October 26, 2024 3:46pm Encounter for insertion of venous access port acute October 27 12:39pm Encounter for antineoplastic immunotherapy acute October 31, 2024 7:16am Encounter for chemotherapy management acute October 31, 2024 7:16am 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 October 31, 2024 7:16am Metastasis to liver acute October 31, 2024 7:16am 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 October 31, 2024 7:16am Hypokalemia acute November 09, 025 8:32am 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 November 09, 2024 8:32am Metastasis to liver acute November 09, 2024 8:32am 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 November 09, 2024 8:32am Pericardial effusion acute November 17, 2024 11:23am Right atrial mass acute November 11:23am Small cell lung cancer acute Ma y 2024 11:23am Mediastinal lymphadenopathy acute November 21, 2024 8:07am Constipation acute December 12 8:07am Delayed surgical wound healing acute December 12, 2024 8:07am Encounter for antineoplastic immunotherapy acute December 12, 2024 8 :07am Encounter for chemotherapy management acute December 12, 2024 8 :07am Mediastinal lymphadenopathy acute December 12, 2024 8:07am 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 December 12, 2024 8:07am Metastasis to liver acute November 172024 8:07am Small cell lung cancer acute Ma y 2024 8:07am Mediastinal lymphadenopathy acute January 02, 2025 9:04am Mediastinal lymphadenopathy acute January 23, 2025 9:03am [facility] Work Phone: 1(418) 512-434403-04-2025 Note* Exam Date Time Procedure Performing Provider Status 09/19/24 12:06 PM US Thyroid ANDREW CONKLIN DO; Auth (Verified) [id number] ORIGINAL EXAMINATION: ULTRASOUND OF THE THYROID WITH COLOR DOPPLER FLOW EVALUATION09/19/2024 12:06 pm Ultrasound Thyroid COMPARISON: None HISTORY: ORDERING SYSTEM PROVIDED HISTORY: Reason for Exam: dysphagia; thyroid nodule, All images are recorded and archived. FINDINGS: Size right thyroid lobe: 6.2 x 2.8 x 2.7 cm Size left thyroid lobe: 4.7 x 2.2 x 2.1 cm Size isthmus: 0.9 cm Texture: Heterogeneous Estimated total number of nodules greater than or equal to 1 cm: 6-10 Nodule#: # 1: Maximum size: 1.6 cm . All dimensions: 1.4 x 1.6 x 1.1 cm Location: Right Lower Composition: solid or almost completely solid: 2 points Echogenicity: hypoechoic: 2 points Shape: wider than tall: 0 points Margins: lobulated/irregular: 2 points Echogenic foci: none: 0 points ACR Total Points: 6; ACR TI-RADS risk category: TR4 - moderately suspicious nodule. Remainder of the enlarged thyroid gland demonstrates numerous adjacent spongiform lesions. IMPRESSION: Thyromegaly and multinodular goiter. 1. Nodule 1: ACR TI-RADS 2017 Category 4. Recommend: Ultrasound-guided fine needle aspiration ACR TI-RADS 2017 Recommendations: TR1(0 points) : No FNA or follow up TR2 (2 points) : No FNA or follow up TR3 (3 points) : FNA if >/= 2.5 cm, follow up if 1.5 - 2.4 cm in 1, 3, and 5 years TR4 (4-6 points) : FNA if >/= 1.5 cm, follow up if 1.0 - 1.4 cm in 1, 2, 3, and 5 years TR5 (>/= 7 points) : FNA if >/= 1.0 cm, follow up if 0.5 - 0.9 cm every year for 5 years *ACR TI-RADS recommends that no more than two nodules with the highest ACR TI-RADS total point should be biopsied and no more than four nodules should be followed. Interpreted by: Andrew Conklin DO Preliminary Report By: Andrew Conklin DO Electronically signed By Andrew Conklin DO Dictated Date: 09/19/2024 12:58:33 PM Prelim Date: 09/19/2024 1:04:03 PM Sign Date: 09/19/2024 1:04:03 PM [facility] [id number] Evaluation note* Diagnosis Onset Date Resolution Status Admit Date Mediastinal lymphadenopathy acute September 18, 2024 12:35pm Lung mass inactive September 18 12:35pm Mediastinal lymphadenopathy acute September 22, 2024 8:56am Shortness of breath acute September 22, 2024 8:56am Shortness of breath acute September 28, 2024 9:34am [facility] Work Phone: 1(727) 850-258003-03-2025 Evaluation note* Diagnosis Onset Date Resolution Status Admit Date Mediastinal lymphadenopathy acute September 18, 2024 12:35pm Lung mass inactive September 18 12:35pm Mediastinal lymphadenopathy acute September 22, 2024 8:56am Shortness of breath acute September 22, 2024 8:56am Shortness of breath acute September 28, 2024 9:34am 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 October 25, 2024 2:36pm Encounter for education acute A pril 2024 3:46pm 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 October 26, 2024 3:46pm Metastasis to liver acute October 26, 2024 3:46pm 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 October 26, 2024 3:46pm Encounter for insertion of venous access port acute October 27, 2 025 12:39pm Encounter for antineoplastic immunotherapy acute October 31, 2024 7:16am Encounter for chemotherapy management acute October 31, 2024 7:16am 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 October 31, 2024 7:16am Metastasis to liver acute October 31, 2024 7:16am 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 October 31, 2024 7:16am Hypokalemia acute November 09, 2 025 8:32am 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 November 09, 2024 8:32am Metastasis to liver acute November 09, 2024 8:32am 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 November 09, 2024 8:32am Pericardial effusion acute November 17, 2024 11:23am Right atrial mass acute November 11:23am Small cell lung cancer acute 2024 11:23am Mediastinal lymphadenopathy acute November 21, 2024 8:07am Mediastinal lymphadenopathy acute December 12, 2024 8:07am [facility] Work Phone: 1([phone]) 779-219303-03-2025 Evaluation note* Diagnosis Onset Date Resolution Status Admit Date Mediastinal lymphadenopathy acute September 18, 2024 12:35pm Lung mass inactive September 18 12:35pm Mediastinal lymphadenopathy acute September 22, 2024 8:56am Shortness of breath acute September 22, 2024 8:56am Shortness of breath acute September 28, 2024 9:34am 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 October 25, 2024 2:36pm Encounter for education acute A pril 2024 3:46pm 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 October 26, 2024 3:46pm Metastasis to liver acute October 26, 2024 3:46pm 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 October 26, 2024 3:46pm Encounter for insertion of venous access port acute October 27, 025 12:39pm Encounter for antineoplastic immunotherapy acute October 31, 2024 7:16am Encounter for chemotherapy management acute October 31, 2024 7:16am 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 October 31, 2024 7:16am Metastasis to liver acute October 31, 2024 7:16am 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 October 31, 2024 7:16am Hypokalemia acute November 09, 2 025 8:32am 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 November 09, 2024 8:32am Metastasis to liver acute November 09, 2024 8:32am 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 November 09, 2024 8:32am Pericardial effusion acute November 17, 2024 11:23am Right atrial mass acute November 11:23am Small cell lung cancer acute 2024 11:23am Mediastinal lymphadenopathy acute November 21, 2024 8:07am Constipation acute December 12 8:07am Delayed surgical wound healing acute December 12, 2024 8:07am Encounter for antineoplastic immunotherapy acute December 12, 2024 8 :07am Encounter for chemotherapy management acute December 12, 2024 8 :07am Mediastinal lymphadenopathy acute December 12, 2024 8:07am 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 December 12, 2024 8:07am Metastasis to liver acute November 172024 8:07am Small cell lung cancer acute Ma 2024 8:07am Mediastinal lymphadenopathy acute January 02, 2025 9:04am [facility] Work Phone: [phone]) 998-820002-27-2025 Evaluation + Plan note Future Scheduled Tests Laboratory* Basic Metabolic Panel 09/14/24 * Thyroid Stimulating Hormone 02/02/24 * Lipid Profile 09/14/24 * Lipid Profile 02/02/24 * Hepatitis C Antibody IgG 02/02/24 * Vitamin D Level 09/14/24 * Vitamin D Level 02/02/24 * Complete Metabolic Panel 02/02/24 [facility] 02-16-2025 Telephone encounter Note* Telephone Encounter - Kalie Gonzalez MA - 09/03/2024 8:36 AM EST Patient given results and verbalized understanding of instructions given. Kalie Gonzalez MA [facility]02-16-2025 Telephone encounter Note* Telephone Encounter - Kalie Gonzalez MA - 09/03/2024 8:36 AM EST ----- Message from Renetta Villalobos APRN.RX SPECIALIST sent at 09/03/2024 8:12 AM EST ----- Please advise patient the COVID/flu/RSV test was negative. [facility]02-16-2025 Miscellaneous Notes* Telephone Encounter - Kalie Gonzalez MA - 09/03/2024 8:36 AM EST Patient given results and verbalized understanding of instructions given. Kalie Gonzalez MA * Telephone Encounter - Kalie Gonzalez MA - 09/03/2024 8:36 AM EST ----- Message from Renetta Villalobos APRN.RX SPECIALIST sent at 09/03/2024 8:12 AM EST ----- Please advise patient the COVID/flu/RSV test was negative. documented in this [facility] [id number] (AGENT OF COVID-19) RNA: Not detected INFLUENZA A RNA: Not detected INFLUENZA B RNA: Not detected RESPIRATORY SYNCYTIAL VIRUS (RSV) RNA: Not detectedSelect Medical Trihealth Rehabilitation HospitalComment on above:Performed By: #### [id number] #### [facility] CLIA [id number] [address] [place], [place] 6302102-15-2025 NoteHNO ID: [id number] Author: DUNG LITTLEJOHN MD Service: ? Author Type: Physician Type: Progress Notes Filed: 09/02/2024 15:54 Note Text: Patient presents with: Sinus Problem: sinus pressure, drainage, sob x 3 days HPI: Feeling sick starting 3 days ago. She was treated in the ED in June for asthmatic bronchitis Positive symptoms: Cough, Shortness of breath, Wheezing, resolved Chest pain, Sore throat, Sinus pressure, Nasal Congestion, Rhinorrhea, Post nasal drainage, Chills, Malaise, Fatigue, Headache, Negative symptoms: Nausea, Vomiting, Diarrhea, OTC: Cold Medicine, uses nebulizer 4 times a day (routine scheduled) MEDICATIONS: Current Outpatient Medications Medication Sig oxyCODONE-acetaminophen (PERCOCET) 5-325 mg tablet Take by mouth every 8 hours as needed for pain. hydroCHLOROthiazide 25 mg tablet Take 25 mg by mouth. busPIRone (BUSPAR) 10 mg tablet Buspirone Hcl Active 10 MG THREE TIMES A DAY August 24, 2019 9:19am traZODone (DESYREL) 50 mg tablet Trazodone Active 50 MG AT BEDTIME August 24, 2019 9:19am valACYclovir (VALTREX) 500 mg tablet Take 500 mg by mouth once daily. CALCIUM-VITAMIN D3 ORAL Take by mouth. Ascorbic Acid 500 mg chew Take 500 mg by mouth once daily. torsemide (DEMADEX) 20 mg tablet Take 1 tablet by mouth once daily. pantoprazole sodium(PROTONIX 40 MG TAB) Take by mouth. ALBUTEROL SULFATE HFA 90 MCG/ACTUATION AEROSOL INHALER take 2 puffs four times daily. citalopram (CELEXA) 20 mg ORAL Tab Take by mouth. doxycycline monohydrate (MONODOX) 100 mg capsule Take 1 capsule by mouth two times a day for 5 days. predniSONE (DELTASONE) 20 mg tablet Take 1 tablet by mouth two times a day for 5 days. benzonatate (TESSALON PERLES) 100 mg capsule Take 1 capsule by mouth three times daily as needed for cough. (Patient not taking: Reported on 12/20/2022) fluticasone (FLONASE) 50 mcg/actuation nasal spray Use 2 Sprays in each nostril once daily. Rinse mouth after use. (Patient not taking: Reported on 12/17/2020 ) guaiFENesin (MUCINEX) 600 mg 12 hr tablet Take 2 tablets by mouth twice daily. (Patient not taking: Reported on 11/29/2018 ) fluticasone (FLOVENT HFA) 110 mcg/actuation inhaler Inhale 2 Puffs as instructed twice daily. (Patient not taking: Reported on 11/29/2018 ) FLUoxetine (PROZAC) 10 mg capsule Take 10 mg by mouth once daily. (Patient not taking: Reported on 12/17/2020 ) FERROUS SULFATE (FE-TABS ORAL) Take by mouth. (Patient not taking: Reported on 12/17/2020 ) lisinopril (ZESTRIL, PRINIVIL) 10 mg tablet Take 10 mg by mouth once daily. (Patient not taking: Reported on 12/17/2020 ) lovastatin (MEVACOR) 20 mg tablet Take 20 mg by mouth daily at bedtime. (Patient not taking: Reported on 12/17/2020 ) diazePAM (VALIUM) 5 mg tablet Take 5 mg by mouth every 6 hours as needed. (Patient not taking: Reported on 12/17/2020) oxyCODONE ER (OXYCONTIN) 40 mg Tb12 Take 1 tablet by mouth every 12 hours. (Patient not taking: Reported on 07/18/2018 ) oxycodone hcl/acetaminophen(PERCOCET 10 MG-325 MG TAB) Take one tablet as needed. (Patient not taking: No sig reported) No current facility-administered medications for this visit. ALLERGIES: ALLERGIES Allergen Reactions Alendronate Myalgia, Other: See Comments Other reaction(s): Muscle ache, Swelling / lump finding Ceclor [Cefaclor] Hives Dyazide [Triamteren* Rash Eryc [Erythromycin] GI Upset Famciclovir Unknown Other reaction(s): hives Gabapentin Unknown Other reaction(s): Unknown Penicillins Hives Percodan [Oxycodone* Vomiting Ultram [Tramadol Hc* Vomiting VITALS: BP 134/82 Pulse 90 Temp 37.2 ?C (98.9 ?F) Resp 18 Wt 77.7 kg (171 lb 4.8 oz) SpO2 94% PHYSICAL EXAM: GEN: mildly ill appearing HEENT: PERRL, EOMI, conjunctiva clear Ears: canals clear. TMs without erythema, bulge, or effusion Sinuses: tender left frontal sinus, tender maxillary sinuses Throat: moist mucous membranes, mild erythema, no exudate Neck: supple, mildly enlarged thyroid, no lymphadenopathy HEART: regular rate, regular rhythm, no murmurs LUNGS: diminished breath sounds, bilateral wheezes, no increased WOB ASSESSMENT/PLAN: 1. COPD with exacerbation (HCC) - ICD9: 491.21, ICD10: J44.1 (primary diagnosis) 2. URI, acute - ICD9: 465.9, ICD10: J06.9 - suspect viral URI, differential includes influenza and COVID-19. - Discussed supportive care treatment with home isolation (fever free for 24 hours and improving symptoms), rest, cold medicine, and analgesia. - Red flags to seek further treatment include chest pain, shortness of breath, and lethargy; in the ER if severe. - COVID AND INFLUENZA A/B AND RSV PCR, ROUTINE -she is beyond the therapeutic window for Tamiflu and refuses Paxlovid. Treat COPD exacerbation with - DOXYCYCLINE MONOHYDRATE 100 MG CAPSULE - PREDNISONE 20 MG TABLET - reports prednisone/steroid is well tolerated. Allergy list updated. Patient reports remotely wolff (more content not included)...[facility]02-[facility] History of Present illness Narrative* Dung Littlejohn MD - 09/02/2024 1:32 PM EST Patient presents with: Sinus Problem: sinus pressure, drainage, sob x 3 days HPI: Feeling sick starting 3 days ago. She was treated in the ED in June for asthmatic bronchitis Positive symptoms: Cough, Shortness of breath, Wheezing, resolved Chest pain, Sore throat, Sinus pressure, Nasal Congestion, Rhinorrhea, Post nasal drainage, Chills, Malaise, Fatigue, Headache, Negative symptoms: Nausea, Vomiting, Diarrhea, OTC: Cold Medicine, uses nebulizer 4 times a day (routine scheduled) MEDICATIONS: Current Outpatient Medications Medication Sig oxyCODONE-acetaminophen (PERCOCET) 5-325 mg tablet Take by mouth every 8 hours as needed for pain. hydroCHLOROthiazide 25 mg tablet Take 25 mg by mouth. busPIRone (BUSPAR) 10 mg tablet Buspirone Hcl Active 10 MG THREE TIMES A DAY August 24, 2019 9:19am traZODone (DESYREL) 50 mg tablet Trazodone Active 50 MG AT BEDTIME August 24, 2019 9:19am valACYclovir (VALTREX) 500 mg tablet Take 500 mg by mouth once daily. CALCIUM-VITAMIN D3 ORAL Take by mouth. Ascorbic Acid 500 mg chew Take 500 mg by mouth once daily. torsemide (DEMADEX) 20 mg tablet Take 1 tablet by mouth once daily. pantoprazole sodium(PROTONIX 40 MG TAB) Take by mouth. ALBUTEROL SULFATE HFA 90 MCG/ACTUATION AEROSOL INHALER take 2 puffs four times daily. citalopram (CELEXA) 20 mg ORAL Tab Take by mouth. doxycycline monohydrate (MONODOX) 100 mg capsule Take 1 capsule by mouth two times a day for 5 days. predniSONE (DELTASONE) 20 mg tablet Take 1 tablet by mouth two times a day for 5 days. benzonatate (TESSALON PERLES) 100 mg capsule Take 1 capsule by mouth three times daily as needed for cough. (Patient not taking: Reported on 12/20/2022) fluticasone (FLONASE) 50 mcg/actuation nasal spray Use 2 Sprays in each nostril once daily. Rinse mouth after use. (Patient not taking: Reported on 12/17/2020 ) guaiFENesin (MUCINEX) 600 mg 12 hr tablet Take 2 tablets by mouth twice daily. (Patient not taking:Reported on 11/29/2018 ) fluticasone (FLOVENT HFA) 110 mcg/actuation inhaler Inhale 2 Puffs as instructed twice daily. (Patient not taking: Reported on 11/29/2018 ) FLUoxetine (PROZAC) 10 mg capsule Take 10 mg by mouth once daily. (Patient not taking: Reported on 12/17/2020 ) FERROUS SULFATE (FE-TABS ORAL) Take by mouth. (Patient not taking: Reported on 12/17/2020 ) lisinopril (ZESTRIL, PRINIVIL) 10 mg tablet Take 10 mg by mouth once daily. (Patient not taking: Reported on 12/17/2020 ) lovastatin (MEVACOR) 20 mg tablet Take 20 mg by mouth daily at bedtime. (Patient not taking: Reported on 12/17/2020 ) diazePAM (VALIUM) 5 mg tablet Take 5 mg by mouth every 6 hours as needed. (Patient not taking: Reported on 12/17/2020) oxyCODONE ER (OXYCONTIN) 40 mg Tb12 Take 1 tablet by mouth every 12 hours. (Patient not taking: Reported on 07/18/2018 ) oxycodone hcl/acetaminophen(PERCOCET 10 MG-325 MG TAB) Take one tablet as needed. (Patient not taking: No sig reported) No current facility-administered medications for this visit. ALLERGIES: ALLERGIES Allergen Reactions Alendronate Myalgia, Other: See Comments Other reaction(s): Muscle ache, Swelling / lump finding Ceclor [Cefaclor] Hives Dyazide [Triamteren* Rash Eryc [Erythromycin] GI Upset Famciclovir Unknown Other reaction(s): hives Gabapentin Unknown Other reaction(s): Unknown Penicillins Hives Percodan [Oxycodone* Vomiting Ultram [Tramadol Hc* Vomiting VITALS: BP 134/82 Pulse 90 Temp 37.2 C (98.9 F) Resp 18 Wt 77.7 kg (171 lb 4.8 oz) SpO2 94% PHYSICAL EXAM: GEN: mildly ill appearing HEENT: PERRL, EOMI, conjunctiva clear Ears: canals clear. TMs without erythema, bulge, or effusion Sinuses: tender left frontal sinus, tender maxillary sinuses Throat: moist mucous membranes, mild erythema, no exudate Neck: supple, mildly enlarged thyroid, no lymphadenopathy HEART: regular rate, regular rhythm, no murmurs LUNGS: diminished breath sounds, bilateral wheezes, no increased WOB ASSESSMENT/PLAN: 1. COPD with exacerbation (HCC) - ICD9: 491.21, ICD10: J44.1 (primary diagnosis) 2. URI, acute - ICD9: 465.9, ICD10: J06.9 - suspect viral URI, differential includes influenza and COVID-19. - Discussed supportive care treatment with home isolation (fever free for 24 hours and improving symptoms), rest, cold medicine, and analgesia. - Red flags to seek further treatment include chest pain, shortness of breath, and lethargy; in theER if severe. - COVID & INFLUENZA A/B & RSV PCR, ROUTINE -she is beyond the therapeutic window for Tamiflu and refuses Paxlovid. Treat COPD exacerbation with - DOXYCYCLINE MONOHYDRATE 100 MG CAPSULE - PREDNISONE 20 MG TABLET - reports prednisone/steroid is well tolerated. Allergy list updated. Patient reports remotely had thyroid biopsy. Encouraged follow-up with PCP. Dung Littlejohn MD [facility] NoteHNO ID: [id number] Author: SERGIO MOHR PA-C Service: ? Author Type: Physician C[employer] Type: Progress Notes Filed: 05/31/2024 17:48 Note Text: This note was created using [employer]. Subjective Karina Fernando is a 73 year old female. HPI Presents with cough and sinus congestion over the past 2 to 3 days. She had a sinus infection at the end of April and was treated with doxycycline. She states that had completely cleared. She was around her granddaughter who had a cold recently and then she started to feel ill. She has had bodyaches as well. No fever. No vomiting or diarrhea. She does have a history of COPD. Review of Systems Constitutional: Positive for chills and fatigue. Negative for fever. HENT: Positive for congestion, sinus pressure and sinus pain. Respiratory: Positive for cough. Negative for chest tightness, shortness of breath and wheezing. Cardiovascular: Negative. Gastrointestinal: Negative. Musculoskeletal: Positive for myalgias. Neurological: Positive for headaches. All other systems reviewed and are negative. PAST MEDICAL HISTORY Diagnosis Date Esophageal reflux Gastroesophageal reflux Goiter, unspecified Goiter Myalgia and myositis, unspecified Fibromyalgia (myalgia and myositis) Obstructive chronic bronchitis with exacerbation (HCC) COPD Pain in joint, site unspecified Joint Pain Unspec PMH - PAST MEDICAL HISTORY OF Arthritis in knees Tobacco use disorder Current Outpatient Medications Medication Sig Dispense Refill oxyCODONE-acetaminophen (PERCOCET) 5-325 mg tablet Take by mouth every 8 hours as needed for pain. hydroCHLOROthiazide 25 mg tablet Take 25 mg by mouth. busPIRone (BUSPAR) 10 mg tablet Buspirone Hcl Active 10 MG THREE TIMES A DAY August 24, 2019 9:19am traZODone (DESYREL) 50 mg tablet Trazodone Active 50 MG AT BEDTIME August 24, 2019 9:19am valACYclovir (VALTREX) 500 mg tablet Take 500 mg by mouth once daily. CALCIUM-VITAMIN D3 ORAL Take by mouth. Ascorbic Acid 500 mg chew Take 500 mg by mouth once daily. pantoprazole sodium(PROTONIX 40 MG TAB) Take by mouth. 0 ALBUTEROL SULFATE HFA 90 MCG/ACTUATION AEROSOL INHALER take 2 puffs four times daily. 0 doxycycline (VIBRA-TABS) 100 mg tablet Take 1 tablet by mouth two times a day for 7 days. 14 tablet 0 benzonatate (TESSALON PERLES) 100 mg capsule Take 1 capsule by mouth three times daily as needed for cough. (Patient not taking: Reported on 12/20/2022) 20 capsule 0 fluticasone (FLONASE) 50 mcg/actuation nasal spray Use 2 Sprays in each nostril once daily. Rinse mouth after use. (Patient not taking: Reported on 12/17/2020 ) 1 Bottle 0 guaiFENesin (MUCINEX) 600 mg 12 hr tablet Take 2 tablets by mouth twice daily. (Patient not taking: Reported on 11/29/2018 ) 60 tablet 0 fluticasone (FLOVENT HFA) 110 mcg/actuation inhaler Inhale 2 Puffs as instructed twice daily. (Patient not taking: Reported on 11/29/2018 ) 1 Inhaler 5 FLUoxetine (PROZAC) 10 mg capsule Take 10 mg by mouth once daily. (Patient not taking: Reported on 12/17/2020 ) FERROUS SULFATE (FE-TABS ORAL) Take by mouth. (Patient not taking: Reported on 12/17/2020 ) lisinopril (ZESTRIL, PRINIVIL) 10 mg tablet Take 10 mg by mouth once daily. (Patient not taking: Reported on 12/17/2020 ) lovastatin (MEVACOR) 20 mg tablet Take 20 mg by mouth daily at bedtime. (Patient not taking: Reported on 12/17/2020 ) diazePAM (VALIUM) 5 mg tablet Take 5 mg by mouth every 6 hours as needed. (Patient not taking: Reported on 12/17/2020) torsemide (DEMADEX) 20 mg tablet Take 1 tablet by mouth once daily. (Patient not taking: Reported on 11/29/2018 ) 0 oxyCODONE ER (OXYCONTIN) 40 mg Tb12 Take 1 tablet by mouth every 12 hours. (Patient not taking: Reported on 07/18/2018 ) 0 oxycodone hcl/acetaminophen(PERCOCET 10 MG-325 MG TAB) Take one tablet as needed. (Patient not taking: No sig reported) 0 citalopram (CELEXA) 20 mg ORAL Tab Take one(1) tablet daily. (Patient not taking: ) 0 No current facility-administered medications for this visit. PAST SURGICAL HISTORY Procedure Laterality Date APPENDECTOMY CARPAL TUNNEL RIGHT WRIST PAST SURGICAL HISTORY OF benign cysts removed from both breast PAST SURGICAL HISTORY OF Major surgery on back,metal rods and plate PAST SURGICAL HISTORY OF Broken right foot FAMILY HISTORY Problem Relation Age of Onset Alzheimer's Disease Maternal Aunt Allergies Mother iodine Arthritis Mother Arthritis Maternal Grandmother Cancer Maternal Grandfather brain cancer Diabetes Brother diet controllled Emphysema Father Heart Father heart attack Hypertension Mother Lipids Mother Osteoporosis Mother Stroke Father Social History Tobacco Use Smoking status: Former Current packs/day: 0.00 Average packs/day: 1 pack/day for 35.0 years (35.0 ttl pk-yrs) Types: Cigarettes Start date: 1970 Quit date: 12/15/2006 Years since quittin.4 (more content not included)...[facility] History of Present illness Narrative* Sergio Mohr PA-C - 05/31/2024 5:45 PM EST This note was created using NoteWriter. Subjective Karina Fernando is a 73 year old female. HPI Presents with cough and sinus congestion over the past 2 to 3 days. She had a sinus infection at the end of April and was treated with doxycycline. She states that had completely cleared. She was around her granddaughter who had a cold recently and then she started to feel ill. She has had bodyaches as well. No fever. No vomiting or diarrhea. She does have a history of COPD. Review of Systems Constitutional: Positive for chills and fatigue. Negative for fever. HENT: Positive for congestion, sinus pressure and sinus pain. Respiratory: Positive for cough. Negative for chest tightness, shortness of breath and wheezing. Cardiovascular: Negative. Gastrointestinal: Negative. Musculoskeletal: Positive for myalgias. Neurological: Positive for headaches. All other systems reviewed and are negative. PAST MEDICAL HISTORY Diagnosis Date Esophageal reflux Gastroesophageal reflux Goiter, unspecified Goiter Myalgia and myositis, unspecified Fibromyalgia (myalgia and myositis) Obstructive chronic bronchitis with exacerbation (HCC) COPD Pain in joint, site unspecified Joint Pain Unspec PMH - PAST MEDICAL HISTORY OF Arthritis in knees Tobacco use disorder Current Outpatient Medications Medication Sig Dispense Refill oxyCODONE-acetaminophen (PERCOCET) 5-325 mg tablet Take by mouth every 8 hours as needed for pain. hydroCHLOROthiazide 25 mg tablet Take 25 mg by mouth. busPIRone (BUSPAR) 10 mg tablet Buspirone Hcl Active 10 MG THREE TIMES A DAY August 24, 2019 9:19am traZODone (DESYREL) 50 mg tablet Trazodone Active 50 MG AT BEDTIME August 24, 2019 9:19am valACYclovir (VALTREX) 500 mg tablet Take 500 mg by mouth once daily. CALCIUM-VITAMIN D3 ORAL Take by mouth. Ascorbic Acid 500 mg chew Take 500 mg by mouth once daily. pantoprazole sodium(PROTONIX 40 MG TAB) Take by mouth. 0 ALBUTEROL SULFATE HFA 90 MCG/ACTUATION AEROSOL INHALER take 2 puffs four times daily. 0 doxycycline (VIBRA-TABS) 100 mg tablet Take 1 tablet by mouth two times a day for 7 days. 14 tablet0 benzonatate (TESSALON PERLES) 100 mg capsule Take 1 capsule by mouth three times daily as needed for cough. (Patient not taking: Reported on 12/20/2022) 20 capsule 0 fluticasone (FLONASE) 50 mcg/actuation nasal spray Use 2 Sprays in each nostril once daily. Rinse mouth after use. (Patient not taking: Reported on 12/17/2020 ) 1 Bottle 0 guaiFENesin (MUCINEX) 600 mg 12 hr tablet Take 2 tablets by mouth twice daily. (Patient not taking:Reported on 11/29/2018 ) 60 tablet 0 fluticasone (FLOVENT HFA) 110 mcg/actuation inhaler Inhale 2 Puffs as instructed twice daily. (Patient not taking: Reported on 11/29/2018 ) 1 Inhaler 5 FLUoxetine (PROZAC) 10 mg capsule Take 10 mg by mouth once daily. (Patient not taking: Reported on 12/17/2020 ) FERROUS SULFATE (FE-TABS ORAL) Take by mouth. (Patient not taking: Reported on 12/17/2020 ) lisinopril (ZESTRIL, PRINIVIL) 10 mg tablet Take 10 mg by mouth once daily. (Patient not taking: Reported on 12/17/2020 ) lovastatin (MEVACOR) 20 mg tablet Take 20 mg by mouth daily at bedtime. (Patient not taking: Reported on 12/17/2020 ) diazePAM (VALIUM) 5 mg tablet Take 5 mg by mouth every 6 hours as needed. (Patient not taking: Reported on 12/17/2020) torsemide (DEMADEX) 20 mg tablet Take 1 tablet by mouth once daily. (Patient not taking: Reported on 11/29/2018 ) 0 oxyCODONE ER (OXYCONTIN) 40 mg Tb12 Take 1 tablet by mouth every 12 hours. (Patient not taking: Reported on 07/18/2018 ) 0 oxycodone hcl/acetaminophen(PERCOCET 10 MG-325 MG TAB) Take one tablet as needed. (Patient not taking: No sig reported) 0 citalopram (CELEXA) 20 mg ORAL Tab Take one(1) tablet daily. (Patient not taking: ) 0 No current facility-administered medications for this visit. PAST SURGICAL HISTORY Procedure Laterality Date APPENDECTOMY CARPAL TUNNEL RIGHT WRIST PAST SURGICAL HISTORY OF benign cysts removed from both breast PAST SURGICAL HISTORY OF Major surgery on back,metal rods and plate PAST SURGICAL HISTORY OF Broken right foot FAMILY HISTORY Problem Relation Age of Onset Alzheimer's Disease Maternal Aunt Allergies Mother iodine Arthritis Mother Arthritis Maternal Grandmother Cancer Maternal Grandfather brain cancer Diabetes Brother diet controllled Emphysema Father Heart Father heart attack Hypertension Mother Lipids Mother Osteoporosis Mother Stroke Father Social History Tobacco Use Smoking status: Former Current packs/day: 0.00 Average packs/day: 1 pack/day for 35.0 years (35.0 ttl pk-yrs) Types: Cigarettes Start date: 1971 Quit date: 12/15/2006 Years since quittin.4 Smokeless tobacco: Never Substance Use Topics Alcohol use: No Drug use: No Objective BP 140/84 Pulse 94 Temp 37.3 C (99.1 F) (Tympanic) Resp 18 Wt 75.4 kg (166 lb 3.6 oz) SpO2 95% Physical Exam Vitals reviewed. Constitutional: Appearance: Normal appearance. HENT: Head: Normocephalic and atraumatic. Right Ear: Tympanic membrane, ear canal and external ear normal. Left Ear: Tympanic membrane, ear canal and external ear normal. Nose: Congestion present. Mouth/Throat: Mouth: Mucous membranes are moist. Pharynx: Oropharynx is clear. Cardiovascular: Rate and Rhythm: Normal rate and regular rhythm. Heart sounds: Normal heart sounds. Pulmonary: Effort: Pulmonary effort is normal. Comments: Decreased breath sounds in the left lower lung Musculoskeletal: Cervical back: Neck supple. Skin: General: Skin is warm and dry. Neurological: Mental Status: She is alert. Assessment and Plan ASSESSMENT/PLAN: 1. Infiltrate of lower lobe of left lung present on imaging study - ICD9: 793.19, ICD10: R91.8 Chest x-ray shows atelectasis versus infiltrate in the left lower lung. Patient does have decreasedbreath sounds here on auscultation. She is afebrile and oxygenating well. Not in any distress. I did discuss with her possibly using Levaquin as she was just on doxycycline however patient very hesitant to try a new antibiotic. She is allergic to cephalosporin as well as penicillin. She also has GIupset to macrolides. I did place her back on doxycycline however discussed she needs to have a follow-up with PCP within 2 to 3 days if not improving. Patient voiced understanding to plan. - XR CHEST 2V FRONTAL/LAT Sergio Mohr PA-C [facility] History of Present illness Narrative* Rio Osorio RT(Avila) - 05/31/2024 5:00 PM EST Radiology Service Progress Note PATIENT NAME: Karina Fernando DATE OF SERVICE: May 31, 2024 TIME: 5:12 PM PATIENT IDENTITY VERIFICATION COMPLETED USING TWO (2) IDENTIFIERS: Name and Date of confirmedby patient verbally. FALL SCREENING: Has the patient had 2 falls in the last year or 1 fall with injury or currently using an Ambulatory Assistive Device (Walker, Cane, Wheelchair, Crutches, etc.)? No PATIENT GENDER DATA: Female. status: : No status: NO. PATIENT RELEVANT IMPLANT DATA REVIEWED: Yes PATIENT PRESENTS WITH AN IMPLANTABLE OR ATTACHED MANAGER DISH: No RADIOLOGY DEPARTMENT: General X-ray: Exam(s) Completed: Chest X-Ray PERIPHERAL IV DATA: Not applicable SIGNED BY: RT Yoko(Avila) May 31, 2024 5:12 PM [facility]24 NoteHNO ID: [id number] Author: RIO OSORIO RT (R) Service: ? Author Type: Manager Poker Type: Progress Notes Filed: 05/31/2024 17:17 Note Text: Radiology Service Progress Note PATIENT NAME: Karina Fernando DATE OF SERVICE: May 31, 2024 TIME: 5:12 PM PATIENT IDENTITY VERIFICATION COMPLETED USING TWO (2) IDENTIFIERS: Name and Date of confirmed by patient verbally. FALL SCREENING: Has the patient had 2 falls in the last year or 1 fall with injury or currently using an Ambulatory Assistive Device (Walker, Cane, Wheelchair, Crutches, etc.)? No PATIENT GENDER DATA: Female. status: : No status: NO. PATIENT RELEVANT IMPLANT DATA REVIEWED: Yes PATIENT PRESENTS WITH AN IMPLANTABLE OR ATTACHED MANAGER DISH: No RADIOLOGY DEPARTMENT: General X-ray: Exam(s) Completed: Chest X-Ray PERIPHERAL IV DATA: Not applicable SIGNED BY: RT Yoko(Avila) May 31, 2024 5:12 [facility]08-05-2024 Hospital Discharge instructions Patient Education 02/21/2024 14:47:01 Cat Bite Cat Bite A cat bite can cause a wound deep enough to break the skin. In such cases, the wound is cleaned andthen sometimes closed. If the wound is closed it is usually not closed completely. This is so that fluid can drain if the wound becomes infected. Often the wound is left open to heal. In addition to wound care, a tetanus shot may be given, if needed. Home care Wash your hands well with soap and warm water before and after caring for the wound. This helps lower the risk of infection. Care for the wound as directed. If a dressing was applied to the wound, be sure to change it as directed. If the wound bleeds, place a clean, soft cloth on the wound. Then firmly apply pressure until the bleeding stops. This may take up to 5 minutes. Don't release the pressure and look at the wound during this time. Always get medical attention for cat bites on the hand. They are highly likely to become infected. Most wounds heal within 10 days. But an infection can occur even with proper treatment. So be sure to check the wound daily for signs of infection (see below). Antibiotics may be prescribed. These help prevent or treat infection. If you re given antibiotics, take them as directed. Also be sure to complete the medicines. Rabies prevention Rabies is a virus that can be carried in certain animals. These can include domestic animals such as cats and dogs. Pets fully vaccinated against rabies (2 shots) are at very low risk of infection. But because human rabies is almost always fatal, any biting pet should be confined for 10 days as an extra precaution. In general, if there is a risk for rabies, the following steps may need to be taken: If someone s pet cat has bitten you, it should be kept in a secure area for the next 10 days to watch for signs of illness. If the pet process design chemical engineer won t allow this, contact your local animal control center. If the cat becomes ill or dies during that time, contact your local animal control center at once so the animal may be tested for rabies. If the cat stays healthy for the next 10 days, there is no danger of rabies in the animal or you. If a stray cat bit you, contact your local animal control center. They can give information on capture, quarantine, and animal rabies testing. If you can t find the animal that bit you in the next 2 days, and if rabies exists in your area, you may need to receive the rabies vaccine series. Call your healthcare provider right away. Or returnto the emergency department promptly. All animal bites should be reported to the local animal control center. If you were not given a form to fill out, you can report this yourself. Follow-up care Follow up with your healthcare provider, or as directed. When to seek medical advice Call your healthcare provider right away if any of these occur: Signs of infection: oSpreading redness or warmth from the wound oIncreased pain or swelling oFever of 100.4 F (38 C) or higher, or as directed by your healthcare provider oColored fluid or pus draining from the wound oEnlarged lymph nodes above the area that was bitten, such as lymph nodes in the armpit if you werebitten on the hand or arm. This may be a sign of cat-scratch disease (cat-scratch fever). Signs of rabies infection: oHeadache oConfusion oStrange behavior oIncreased salivating or drooling oSeizure Decreased ability to move any body part near the bite area Bleeding that can't be stopped after 5 minutes of firm pressure [phone] [employer]. [address] [place] [address]. All rights reserved. This information is not intended as a substitute for professional medical care. Always follow yourhealthcare professional's instructions. Follow Up Care 02/21/2024 14:22:21 With:TU HECTOR DO Address: [address] [place] [address] [place] [address] [phone] When:2-4 days [facility] 08-04-2024 Hospital Discharge instructions Patient Education 02/20/2024 15:46:51 Leg Swelling in a Single Leg Leg Swelling in a Single Leg Swelling of the arms, feet, ankles, and legs is called edema. It is caused by extra fluid collecting in the tissues. Because of gravity, extra fluid in the body settles to the lowest part. That is why the legs and feet are most affected. You have swelling in a single leg. Some of the causes for swelling in only a single leg include: Infection in the foot or leg Long-term problem with a vein not working well (venous insufficiency) Swollen, twisted vein in the leg (varicose veins) Insect bite or sting on the foot or leg Injury or recent surgery on the foot or leg Blood clot in a deep vein of the leg (deep vein thrombosis or DVT) Inflammation of the joints of the lower leg Medical treatment will depend on what is causing your swelling. Home care Follow these guidelines when caring for yourself at home: Don t wear tight clothing. Keep your legs up while lying or sitting. Take any medicines as directed. If infection, injury, or recent surgery is the cause of your swelling, stay off your legs as much as possible until your symptoms get better. If you have venous insufficiency or varicose veins, don t sit or head of measurement & insights one place for long periods of time. Take breaks and walk around every few hours. Talk with your healthcare provider about wearing support stockings to help lessen swelling during the day. Wear compression stockings with your doctor's approval Follow-up care Follow up with your healthcare provider as advised. Call 911 Call 911 if any of these occur: Shortness of breath or trouble breathing Chest pain Coughing up blood Fainting or loss of consciousness When to seek medical advice Call your healthcare provider right away if any of these occur: Increased pain, swelling, warmth, or redness of the leg, ankle, or foot Fever of 100.4 F (38 C) or higher, or as directed by your healthcare provider Weakness or dizziness Shaking chills Drenching sweats [phone] [employer]. [address] [place] [address]. All rights reserved. This information is not intended as a substitute for professional medical care. Always follow yourhealthcare professional's instructions. Follow Up Care 02/20/2024 15:15:59 With:TU HECTOR DO Address: [address] [facility] [place] [address] [phone] When:2-4 days [facility] 08-04-2024 Note Discharge Instructions Thank you for allowing [facility] to assist you with your healthcare needs. The following is importantdischarge information regarding your hospital visit. What to Do Next Instructions from Your Care Team Discharge ED Outpatient Vascular Lab - Ordered -- Test Requested: DVT study LLE (doppler), Lower extremity, Left, Test Reason: Edema, Mon-Fri 8am-4:30pm: Call [phone] at 7:30am to schedule a same day appointment for testing. Please be aware there may be a short wait time., Weekend Holiday 8am-6... Post Acute Orders No qualifying data available. You Need to Schedule the Following Appointments Follow Up with TU HECTOR DO When:Within 2-4 days Where:[address] [facility] [place] [address]- [phone] Allergies Ceclor Hives Fosamax Swelling / lump finding, Muscle ache Ultram Itching erythromycin Stomach pain morphine Vomiting penicillin Hives Medications Please ask your primary doctor or pharmacist before taking any other medication not listed, including over the counter drugs, herbal medications, vitamins and or supplements as they may interact withyour home medications. What How Much When Why Instructions Last Dose Unchanged acetaminophen-oxyCODONE (acetaminophen-oxyCODONE 325 mg-5 mg oral tablet) 1 tab(s) by mouth Two (2) times a day Unchanged albuterol (Ventolin HFA MDI (90 mcg/ inh) inhalation aerosol) 2 puff(s) by inhalation Four (4) times a day as needed for as needed for wheezing Cough Acute URI Duration: 30 Days Unchanged busPIRone (busPIRone 10 mg oral tablet) 1 tab(s) by mouth Three (3) times a day as needed for as needed for anxiety Anxiety Unchanged cholecalciferol (Vitamin D3 25 mcg (1000 intl units) oral capsule) 1 cap by mouth Once a day Unchanged cyanocobalamin (Vitamin B12 50 mcg oral tablet) 1 tab(s) by mouth Once a day Unchanged herbal/ nutritional product (turmeric 500 mg oral capsule) 1 cap by mouth Two (2) times a day Unchanged hydroCHLOROthiazide (hydroCHLOROthiazide 25 mg oral tablet) 1 tab(s) by mouth Once a day HTN - Hypertension Unchanged Misc Medication (Mult. Vitamins by Henrique) Carotomax, OmegaGuard, Osteo Matrix, Sona-Palak Gold w/ Vit. K, Optiflora D1 Unchanged pantoprazole (pantoprazole 40 mg oral enteric coated tablet) 1 tab(s) by mouth Once a day GERD (gastroesophageal reflux disease) Acid reflux Unchanged traZODone (traZODone 100 mg oral tablet) 1 tab(s) by mouth Daily at bedtime Insomnia Duration: 90 Days Dose adjusted Please take this list to your next doctor s visit. Bring all medications you take, including over the counter medications, herbals and other supplements with you to your doctor s visit. Patients and families are reminded to discard old lists and to update any records with all medication providers or retail pharmacies. Education Materials Leg Swelling in a Single Leg Swelling of the arms, feet, ankles, and legs is called edema. It is caused by extra fluid collecting in the tissues. Because of gravity, extra fluid in the body settles to the lowest part. That is why the legs and feet are most affected. You have swelling in a single leg. Some of the causes for swelling in only a single leg include: Infection in the foot or leg Long-term problem with a vein not working well (venous insufficiency) Swollen, twisted vein in the leg (varicose veins) Insect bite or sting on the foot or leg Injury or recent surgery on the foot or leg Blood clot in a deep vein of the leg (deep vein thrombosis or DVT) Inflammation of the joints of the lower leg Medical treatment will depend on what is causing your swelling. Home care Follow these guidelines when caring for yourself at home: Don t wear tight clothing. Keep your legs up while lying or sitting. Take any medicines as directed. If infection, injury, or recent surgery is the cause of your swelling, stay off your legs as much as possible until your symptoms get better. If you have venous insufficiency or varicose veins, don t sit or head of measurement & insights one place for long periods of time. Take breaks and walk around every few hours. Talk with your healthcare provider about wearing support stockings to help lessen swelling during the day. Wear compression stockings with your doctor's approval Follow-up care Follow up with your healthcare provider as advised. Call 911 Call 911 if any of these occur: Shortness of breath or trouble breathing Chest pain Coughing up blood Fainting or loss of consciousness When to seek medical advice Call your healthcare provider right away if any of these occur: Increased pain, swelling, warmth, or redness of the leg, ankle, or foot Fever of 100.4 F (38 C) or higher, or as directed by your healthcare provider Weakness or dizziness Shaking chills Drenching sweats [phone] [employer]. [address] [place] [address], [place] [address]. All rights reserved. This information is not intended as a substitute for professional medical care. Always follow yourhealthcare professional's instructions. Additional Information VACCINATE! IT SAVES LIVES! Members of the community who have not yet received the COVID-19 vaccine and would like to receive it can visit one of [facility] vaccine clinics. There are many vaccine clinic locations within the [facility]. For locations and available times, please visit [email or web address] It is important to note that some COVID mobile vaccine clinics are held outdoors and may be canceled in rainy or stormy conditions. To learn more about pediatric vaccinations (ages 5-11), we invite you to visit the [facility] webpage. [email or web address] learn more about the COVID-19 vaccine, we invite you to visit the CDC website for a list of frequently asked questions. https://www.cdc.gov/coronavirus/2019-ncov/vaccines/faq.html [email or web address] Patient Portal Access Instructions: Stay connected with your healthcare team and access your personal medical information anytime with the [email or web address] Patient Portal. If you would like a full copy of your medical records please contact the [facility] Medical Records Department Wednesday through Wednesday between 8a.m. and 4:30p.m. Please follow the directions below to access the portal: 1.Access the email account you provided upon registration to the [facility].2.Look for an invitation email from [facility].3.Open the email and access the invitation link: Accept Invitation to [email or web address].Fill in the required abbasi to create your account. Sign into www.[employer] with your username and password that you created in the above steps to stay up to date. You can then view a summary of results, a summary of your visits, and the ability to download your summaries to your computer or send the information securely to a physician. Remember that your healthcare information is confidential, so carefully consider who you will allow to register on the [facility] Patient Portal for access to your information. You can also access the [facility] Patient Portal on the [employer] chica. Simply click on Health Records under [employer] and then click on the [employer] logo. HOW TO SAFELY DISPOSE OF PRESCRIPTION MEDICATIONS Please use one of the following methods to safely dispose of your unused medications. 1.Use a drug disposal kit: the drug disposal pouch allows you to safely discard your old and unuseddrugs. Ask your nurse to give you one when you are discharged.2.Visit a local take-back location: Many local pharmacies and police departments have programs that collect old and unwanted prescriptiondrugs. Call your local pharmacy or go to http://[employer]/2R0Rd9h to find one close to you.3.Make use of household items: Use cat litter or old coffee grounds to dispose medications if other options arenot available. Mix your drugs with these household products, seal them in an airtight container andthrow it into the garbage. Call [facility]: [phone] to be sure your drugs can be disposed of in this way. Some medicines may require a different approach.4.Never flush your medications down the toilet. IF YOU HAVE BEEN PRESCRIBED AN OPIOIDS FOR PAIN If you have been prescribed an opioid (such as hydrocodone, oxycodone or morphine), it is critical to understand the possible side effects and risks of opioid pain medications. Even when taken as directed, opioids can have several side effects including: Tolerance, meaning you might need to take more of a medication for the same pain relief. Nausea, vomiting and/or constipation. Sleepiness, dizziness, dry mouth, confusion, depression or itching. Physical dependence, meaning you have withdrawal symptoms when a medication is stopped ? this can develop within a few days. KNOW YOUR RESPONSIBILITIES It is important to know exactly how much and how often to take the opioid pain medications you are prescribed. Never take opioids in higher amounts or more often than prescribed. Do not combine opioids with alcohol or other drugs that cause drowsiness, such as benzodiazepines, also known as benzos,including diazepam and alprazolam, muscle relaxants or sleep aids. Never sell or share prescriptionopioids. This is illegal. Store opioids in a secure place and out of reach of others (including children, family, friends and visitors). The last page(s) of this document has been signed and retained as a CHART COPY Signatures Patient Education Materials Leg Swelling in a Single Leg Medication Leaflets My discharge plan and instructions have been reviewed and explained to me and I,KARINA FERNANDO understand my current condition and have read and understand these discharge instructions. I have received a written copy of the plan/instructions. If I have questions, I am aware that I should contact my doctor. 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 This may cause an itchy rash and sometimes swelling of various parts of the body. It could also cause trouble swallowing or breathing. The rash may take a few hours or up to 2 weeks to go away. In the future, remember to tell your healthcare provider about your allergy to this medicine so that medicines of this type won't be used again. Any medicine can cause an allergic reaction. But the most allergic reactions are caused by: Penicillin and related medicines Aspirin Ibuprofen Seizure medicines Vaccines may also trigger allergies. People whose parents or siblings have allergies are at a higher risk of developing a medicine allergy. Allergy testing may sometimes be needed to figure out the cause. Symptoms may occur within minutes, hours, or even weeks after exposure to the medicine. It can be amild or severe reaction, or potentially life threatening. Most of us think of allergic reactions when we have a rash or itchy skin. Symptoms can include: Rash, hives, redness, welts, blisters Itching, burning, stinging, pain Dry, flaky, cracking, scaly skin Belly (abdominal) cramps or nausea or stomach pain Fever. Sometimes fever is the only symptom of a drug reaction. In older adults, the risk of fever increases with the number of medicines the person takes. More severe symptoms include: Swelling of the face or lips, or drooling Trouble swallowing, feeling like your throat is closing Trouble breathing, wheezing Hoarse voice or trouble speaking Severe nausea or vomiting or diarrhea Feeling faint or lightheaded, rapid heart rate Blistering of the skin, or ulcers in the mouth or on the genitals Home care The goal of treatment is to help relieve the symptoms, and get you feeling better. Mild to medium medicine reactions usually respond quickly to antihistamines, steroids, and stopping the medicine. The rash will usually fade over several days. But it can sometimes last a couple of weeks. Over the next couple of days, there may be times when it is gets a little worse, and then better again. Here are some things to do: Throw the medicine away and don t take it again. The next reaction could be the same or worse. Call your health care provider to discuss adding this medicine allergy reaction to your electronic medical record. When getting a new medicine, always tell the healthcare provider that you are allergic to this medicine. Make certain the provider writes it down in your medical record. Avoid tight clothing and anything that heats up your skin (hot showers or baths, direct sunlight). Heat will make itching worse. An ice pack will relieve local areas of intense itching and redness. To make an ice pack, put ice cubes in a plastic bag that seals at the top. Wrap the bag in a clean, thin towel or cloth. Don t putice directly on the skin. To help prevent an infection, don't scratch the affected area. Scratching may worsen the reaction. It can damage your skin and lead to an infection. Always check the affected site for signs of an infection. Your provider may give you a prescription antihistamine. If you are not given a prescription antihistamine, oral diphenhydramine is an joev-wnu-zrgilgo antihistamine available at pharmacies and grocery stores. This may be used to reduce itching if large areas of the skin are involved. This antihistamine may make you sleepy, so be careful using it in the daytime or when going to school, working, or driving. Note: Don t use diphenhydramine if you have glaucoma or if you are a man with trouble urinating due to an enlarged prostate. There are other antihistamines that cause less drowsiness and are a good choice for daytime use. Ask your pharmacist or health care provider for suggestions. Don't use diphenhydramine cream on your skin. It can cause a further skin reaction for some people. Contact your healthcare provider and ask what can be used on the affected area to help decrease theitching. Follow-up care Follow up with your healthcare provider, or as advised if your symptoms do not continue to improve or they get worse. Call 911 Call 911 if any of these occur: Shortness of breath Cool, moist, pale skin Swelling in the face, eyelids, mouth, tongue, or lips Drooling Trouble breathing or swallowing, wheezing New or worsening swelling in the mouth, throat, or tongue Hoarse voice or trouble speaking Fainting or loss of consciousness Rapid heart rate Feeling of dizziness or weakness or a sudden drop in blood pressure Feeling of doom Feeling lightheaded Severe nausea, vomiting, or diarrhea When to seek medical advice Call your healthcare provider right away if any of these occur: Continuing or recurring symptoms Nausea, abdominal cramps or stomach pain Spreading areas of itching, redness or swelling Blistering of the skin or sores or ulcers in the mouth or on the genitals Signs of infection: oSpreading redness oIncreased pain or swelling oFever of 100.4 F (38 C) or above lasting for 24 to 48 hours, or as directed by your provider oFluid or colored drainage from the affected area [phone] [employer]. [address] [place] [address]. All rights reserved. This information is not intended as a substitute for professional medical care. Always follow yourhealthcare professional's instructions. Follow Up Care 02/11/2024 06:26:14 With:TU HECTOR DO Address: [address] [facility] [place] [address] [phone] When:2-4 days [facility] 07-26-2024 Emergency department Discharge summary Discharge Instructions Thank you for allowing [facility] to assist you with your healthcare needs. The following is importantdischarge information regarding your hospital visit. Diagnosis from Today's Visit Allergic reaction to medication What to Do Next Instructions from Your Care Team No qualifying data available. Post Acute Orders No qualifying data available. You Need to Schedule the Following Appointments Follow Up with UT HECTOR DO When:Within 2-4 days Where:0 [facility] [place] [address]- [phone] Allergies Ceclor Hives Fosamax Swelling / lump finding, Muscle ache Ultram Itching erythromycin Stomach pain morphine Vomiting penicillin Hives Medications Please ask your primary doctor or pharmacist before taking any other medication not listed, including over the counter drugs, herbal medications, vitamins and or supplements as they may interact withyour home medications. What How Much When Why Instructions Last Dose New predniSONE (predniSONE 50 mg oral tablet) 1 tab(s) by mouth Every day Printed Prescription Unchanged acetaminophen-oxyCODONE (acetaminophen-oxyCODONE 325 mg-5 mg oral tablet) 1 tab(s) by mouth Two (2) times a day Unchanged albuterol (Ventolin HFA MDI (90 mcg/ inh) inhalation aerosol) 2 puff(s) by inhalation Four (4) times a day as needed for as needed for wheezing Cough Acute URI Duration: 30 Days Unchanged busPIRone (busPIRone 10 mg oral tablet) 1 tab(s) by mouth Three (3) times a day as needed for as needed for anxiety Anxiety Unchanged cholecalciferol (Vitamin D3 25 mcg (1000 intl units) oral capsule) 1 cap by mouth Once a day Unchanged cyanocobalamin (Vitamin B12 50 mcg oral tablet) 1 tab(s) by mouth Once a day Unchanged doxycycline (doxycycline hyclate 100 mg oral capsule) 1 cap by mouth Two (2) times a day Duration: 14 Days Unchanged herbal/ nutritional product (turmeric 500 mg oral capsule) 1 cap by mouth Two (2) times a day Unchanged hydroCHLOROthiazide (hydroCHLOROthiazide 25 mg oral tablet) 1 tab(s) by mouth Once a day HTN - Hypertension Unchanged Misc Medication (Mult. Vitamins by Henrique) Carotomax, OmegaGuard, Osteo Matrix, Sona-Palak Gold w/ Vit. K, Optiflora D1 Unchanged pantoprazole (pantoprazole 40 mg oral enteric coated tablet) 1 tab(s) by mouth Once a day GERD (gastroesophageal reflux disease) Acid reflux Unchanged traZODone (traZODone 100 mg oral tablet) 1 tab(s) by mouth Daily at bedtime Insomnia Duration: 90 Days Dose adjusted Please take this list to your next doctor s visit. Bring all medications you take, including over the counter medications, herbals and other supplements with you to your doctor s visit. Patients and families are reminded to discard old lists and to update any records with all medication providers or retail pharmacies. Education Materials Medicine Reaction: Allergic You are having an allergic reaction to a medicine you have taken. This may cause an itchy rash and sometimes swelling of various parts of the body. It could also cause trouble swallowing or breathing. The rash may take a few hours or up to 2 weeks to go away. In the future, remember to tell your healthcare provider about your allergy to this medicine so that medicines of this type won't be used again. Any medicine can cause an allergic reaction. But the most allergic reactions are caused by: Penicillin and related medicines Aspirin Ibuprofen Seizure medicines Vaccines may also trigger allergies. People whose parents or siblings have allergies are at a higher risk of developing a medicine allergy. Allergy testing may sometimes be needed to figure out the cause. Symptoms may occur within minutes, hours, or even weeks after exposure to the medicine. It can be amild or severe reaction, or potentially life threatening. Most of us think of allergic reactions when we have a rash or itchy skin. Symptoms can include: Rash, hives, redness, welts, blisters Itching, burning, stinging, pain Dry, flaky, cracking, scaly skin Belly (abdominal) cramps or nausea or stomach pain Fever. Sometimes fever is the only symptom of a drug reaction. In older adults, the risk of fever increases with the number of medicines the person takes. More severe symptoms include: Swelling of the face or lips, or drooling Trouble swallowing, feeling like your throat is closing Trouble breathing, wheezing Hoarse voice or trouble speaking Severe nausea or vomiting or diarrhea Feeling faint or lightheaded, rapid heart rate Blistering of the skin, or ulcers in the mouth or on the genitals Home care The goal of treatment is to help relieve the symptoms, and get you feeling better. Mild to medium medicine reactions usually respond quickly to antihistamines, steroids, and stopping the medicine. The rash will usually fade over several days. But it can sometimes last a couple of weeks. Over the next couple of days, there may be times when it is gets a little worse, and then better again. Here are some things to do: Throw the medicine away and don t take it again. The next reaction could be the same or worse. Call your health care provider to discuss adding this medicine allergy reaction to your electronic medical record. When getting a new medicine, always tell the healthcare provider that you are allergic to this medicine. Make certain the provider writes it down in your medical record. Avoid tight clothing and anything that heats up your skin (hot showers or baths, direct sunlight). Heat will make itching worse. An ice pack will relieve local areas of intense itching and redness. To make an ice pack, put ice cubes in a plastic bag that seals at the top. Wrap the bag in a clean, thin towel or cloth. Don t putice directly on the skin. To help prevent an infection, don't scratch the affected area. Scratching may worsen the reaction. It can damage your skin and lead to an infection. Always check the affected site for signs of an infection. Your provider may give you a prescription antihistamine. If you are not given a prescription antihistamine, oral diphenhydramine is an cipm-wyw-amravch antihistamine available at pharmacies and grocery stores. This may be used to reduce itching if large areas of the skin are involved. This antihistamine may make you sleepy, so be careful using it in the daytime or when going to school, working, or driving. Note: Don t use diphenhydramine if you have glaucoma or if you are a man with trouble urinating due to an enlarged prostate. There are other antihistamines that cause less drowsiness and are a good choice for daytime use. Ask your pharmacist or health care provider for suggestions. Don't use diphenhydramine cream on your skin. It can cause a further skin reaction for some people. Contact your healthcare provider and ask what can be used on the affected area to help decrease theitching. Follow-up care Follow up with your healthcare provider, or as advised if your symptoms do not continue to improve or they get worse. Call 911 Call 911 if any of these occur: Shortness of breath Cool, moist, pale skin Swelling in the face, eyelids, mouth, tongue, or lips Drooling Trouble breathing or swallowing, wheezing New or worsening swelling in the mouth, throat, or tongue Hoarse voice or trouble speaking Fainting or loss of consciousness Rapid heart rate Feeling of dizziness or weakness or a sudden drop in blood pressure Feeling of doom Feeling lightheaded Severe nausea, vomiting, or diarrhea When to seek medical advice Call your healthcare provider right away if any of these occur: Continuing or recurring symptoms Nausea, abdominal cramps or stomach pain Spreading areas of itching, redness or swelling Blistering of the skin or sores or ulcers in the mouth or on the genitals Signs of infection: oSpreading redness oIncreased pain or swelling oFever of 100.4 F (38 C) or above lasting for 24 to 48 hours, or as directed by your provider oFluid or colored drainage from the affected area [phone] [employer]. [address] [place] [address]. All rights reserved. This information is not intended as a substitute for professional medical care. Always follow yourhealthcare professional's instructions. Additional Information VACCINATE! IT SAVES LIVES! Members of the community who have not yet received the COVID-19 vaccine and would like to receive it can visit one of [facility] vaccine clinics. There are many vaccine clinic locations within the [facility]. For locations and available times, please visit [email or web address] It is important to note that some COVID mobile vaccine clinics are held outdoors and may be canceled in rainy or stormy conditions. To learn more about pediatric vaccinations (ages 5-11), we invite you to visit the [facility] webpage. [email or web address]/[email or web address] [email or web address] learn more about the COVID-19 vaccine, we invite you to visit the CDC website for a list of frequently asked questions. https://www.cdc.gov/coronavirus/2019-ncov/vaccines/faq.html [facility] Patient Portal Access Instructions: Stay connected with your healthcare team and access your personal medical information anytime with the [facility] Patient Portal. If you would like a full copy of your medical records please contact the [facility] Medical Records Department Wednesday through Wednesday between 8a.m. and 4:30p.m. Please follow the directions below to access the portal: 1.Access the email account you provided upon registration to the [facility].2.Look for an invitation email from [facility].3.Open the email and access the invitation link: Accept Invitation to [facility]4.Fill in the required abbasi to create your account. Sign into [email or web address] with your username and password that you created in the above steps to stay up to date. You can then view a summary of results, a summary of your visits, and the ability to download your summaries to your computer or send the information securely to a physician. Remember that your healthcare information is confidential, so carefully consider who you will allow to register on the [facility] Patient Portal for access to your information. You can also access the [facility] Patient Portal on the [employer]. Simply click on Health Records under [employer] and then click on the [facility] logo. HOW TO SAFELY DISPOSE OF PRESCRIPTION MEDICATIONS Please use one of the following methods to safely dispose of your unused medications. 1.Use a drug disposal kit: the drug disposal pouch allows you to safely discard your old and unuseddrugs. Ask your nurse to give you one when you are discharged.2.Visit a local take-back location: Many local pharmacies and police departments have programs that collect old and unwanted prescriptiondrugs. Call your local pharmacy or go to http://[employer]/7X6Sa7q to find one close to you.3.Make use of household items: Use cat litter or old coffee grounds to dispose medications if other options arenot available. Mix your drugs with these household products, seal them in an airtight container andthrow it into the garbage. Call [facility]: [phone] to be sure your drugs can be disposed of in this way. Some medicines may require a different approach.4.Never flush your medications down the toilet. IF YOU HAVE BEEN PRESCRIBED AN OPIOIDS FOR PAIN If you have been prescribed an opioid (such as hydrocodone, oxycodone or morphine), it is critical to understand the possible side effects and risks of opioid pain medications. Even when taken as directed, opioids can have several side effects including: Tolerance, meaning you might need to take more of a medication for the same pain relief. Nausea, vomiting and/or constipation. Sleepiness, dizziness, dry mouth, confusion, depression or itching. Physical dependence, meaning you have withdrawal symptoms when a medication is stopped ? this can develop within a few days. KNOW YOUR RESPONSIBILITIES It is important to know exactly how much and how often to take the opioid pain medications you are prescribed. Never take opioids in higher amounts or more often than prescribed. Do not combine opioids with alcohol or other drugs that cause drowsiness, such as benzodiazepines, also known as benzos,including diazepam and alprazolam, muscle relaxants or sleep aids. Never sell or share prescriptionopioids. This is illegal. Store opioids in a secure place and out of reach of others (including children, family, friends and visitors). The last page(s) of this document has been signed and retained as a CHART COPY Signatures Patient Education Materials Allergic Reaction, Drug Medication Leaflets My discharge plan and instructions have been reviewed and explained to me and I,SYLVIA KARINA M understand my current condition and have read and understand these discharge instructions. I have received a written copy of the plan/instructions. If I have questions, I am aware that I should contact my doctor. 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 Moderate size hiatal hernia is present in the retrocardiac region. There is no acute lung infiltrate or edema. No pneumothorax or pleural fluid is present. Healed left rib fractures are present. No acute skeletal abnormality is detected. IMPRESSION: 1. No acute cardiopulmonary process. 2. Moderate size hiatal hernia. Interpreted by: Omid Bethea MD Preliminary Report By: Omid Bethea MD Electronically signed By Omid Bethea MD Dictated Date: 02/11/2024 7:15:58 AM Prelim Date: 02/11/2024 7:17:20 AM Sign Date: 02/11/2024 7:17:20 AM [facility] Progress note Assumed care of patient at this time. Digitally Signed by Maggy Park RN on 02/11/2024 07:09 AM [facility]07-26-2024 NoteSinus rhythm Electronic Signature: NILTON CASTORENA MD 02/11/2024 06:53:00[facility] 07-19-2024 Hospital Discharge instructions Patient Education 02/04/2024 13:19:05 Cat Bite Cat Bite A cat bite can cause a wound deep enough to break the skin. In such cases, the wound is cleaned andthen sometimes closed. If the wound is closed it is usually not closed completely. This is so that fluid can drain if the wound becomes infected. Often the wound is left open to heal. In addition to wound care, a tetanus shot may be given, if needed. Home care Wash your hands well with soap and warm water before and after caring for the wound. This helps lower the risk of infection. Care for the wound as directed. If a dressing was applied to the wound, be sure to change it as directed. If the wound bleeds, place a clean, soft cloth on the wound. Then firmly apply pressure until the bleeding stops. This may take up to 5 minutes. Don't release the pressure and look at the wound during this time. Always get medical attention for cat bites on the hand. They are highly likely to become infected. Most wounds heal within 10 days. But an infection can occur even with proper treatment. So be sure to check the wound daily for signs of infection (see below). Antibiotics may be prescribed. These help prevent or treat infection. If you re given antibiotics, take them as directed. Also be sure to complete the medicines. Rabies prevention Rabies is a virus that can be carried in certain animals. These can include domestic animals such as cats and dogs. Pets fully vaccinated against rabies (2 shots) are at very low risk of infection. But because human rabies is almost always fatal, any biting pet should be confined for 10 days as an extra precaution. In general, if there is a risk for rabies, the following steps may need to be taken: If someone s pet cat has bitten you, it should be kept in a secure area for the next 10 days to watch for signs of illness. If the pet process design chemical engineer won t allow this, contact your local animal control center. If the cat becomes ill or dies during that time, contact your local animal control center at once so the animal may be tested for rabies. If the cat stays healthy for the next 10 days, there is no danger of rabies in the animal or you. If a stray cat bit you, contact your local animal control center. They can give information on capture, quarantine, and animal rabies testing. If you can t find the animal that bit you in the next 2 days, and if rabies exists in your area, you may need to receive the rabies vaccine series. Call your healthcare provider right away. Or returnto the emergency department promptly. All animal bites should be reported to the local animal control center. If you were not given a form to fill out, you can report this yourself. Follow-up care Follow up with your healthcare provider, or as directed. When to seek medical advice Call your healthcare provider right away if any of these occur: Signs of infection: oSpreading redness or warmth from the wound oIncreased pain or swelling oFever of 100.4 F (38 C) or higher, or as directed by your healthcare provider oColored fluid or pus draining from the wound oEnlarged lymph nodes above the area that was bitten, such as lymph nodes in the armpit if you werebitten on the hand or arm. This may be a sign of cat-scratch disease (cat-scratch fever). Signs of rabies infection: oHeadache oConfusion oStrange behavior oIncreased salivating or drooling oSeizure Decreased ability to move any body part near the bite area Bleeding that can't be stopped after 5 minutes of firm pressure [id number] [employer]. [address] [place] [address]. All rights reserved. This information is not intended as a substitute for professional medical care. Always follow yourhealthcare professional's instructions. Follow Up Care 02/04/2024 12:56:31 With:TU HECTOR DO Address: [address] [place] [address] [phone] When:2-4 days [facility] 07-19-2024 Emergency department Discharge summary Discharge Instructions Thank you for allowing [facility] to assist you with your healthcare needs. The following is importantdischarge information regarding your hospital visit. Diagnosis from Today's Visit Wound of skin What to Do Next Instructions from Your Care Team No qualifying data available. Post Acute Orders No qualifying data available. You Need to Schedule the Following Appointments Follow Up with TU HECTOR DO When:Within 2-4 days Where:[address] [place] [address] [phone] Allergies Ceclor Hives Fosamax Swelling / lump finding, Muscle ache Ultram Itching erythromycin Stomach pain morphine Vomiting penicillin Hives Medications Please ask your primary doctor or pharmacist before taking any other medication not listed, including over the counter drugs, herbal medications, vitamins and or supplements as they may interact withyour home medications. What How Much When Why Instructions Last Dose Unchanged acetaminophen-oxyCODONE (acetaminophen-oxyCODONE 325 mg-5 mg oral tablet) 1 tab(s) by mouth Two (2) times a day Unchanged albuterol (Ventolin HFA MDI (90 mcg/ inh) inhalation aerosol) 2 puff(s) by inhalation Four (4) times a day as needed for as needed for wheezing Cough Acute URI Duration: 30 Days Unchanged busPIRone (busPIRone 10 mg oral tablet) 1 tab(s) by mouth Three (3) times a day as needed for as needed for anxiety Anxiety Unchanged cholecalciferol (Vitamin D3 25 mcg (1000 intl units) oral capsule) 1 cap by mouth Once a day Unchanged cyanocobalamin (Vitamin B12 50 mcg oral tablet) 1 tab(s) by mouth Once a day Unchanged doxycycline (doxycycline hyclate 100 mg oral capsule) 1 cap by mouth Two (2) times a day Duration: 14 Days Unchanged ezetimibe (ezetimibe 10 mg oral tablet) 1 tab(s) by mouth Once a day Hyperlipidemia Discontinue simvastatin prescription please Unchanged herbal/ nutritional product (turmeric 500 mg oral capsule) 1 cap by mouth Two (2) times a day Unchanged hydroCHLOROthiazide (hydroCHLOROthiazide 25 mg oral tablet) 1 tab(s) by mouth Once a day HTN - Hypertension Unchanged Misc Medication (Mult. Vitamins by [facility]) Carotomax, OmegaGuard, Osteo Matrix, Sona-Palak Gold w/ Vit. K, Optiflora D1 Unchanged pantoprazole (pantoprazole 40 mg oral enteric coated tablet) 1 tab(s) by mouth Once a day GERD (gastroesophageal reflux disease) Acid reflux Unchanged traZODone (traZODone 100 mg oral tablet) 1 tab(s) by mouth Daily at bedtime Insomnia Duration: 90 Days Dose adjusted Please take this list to your next doctor s visit. Bring all medications you take, including over the counter medications, herbals and other supplements with you to your doctor s visit. Patients and families are reminded to discard old lists and to update any records with all medication providers or retail pharmacies. Education Materials Cat Bite A cat bite can cause a wound deep enough to break the skin. In such cases, the wound is cleaned andthen sometimes closed. If the wound is closed it is usually not closed completely. This is so that fluid can drain if the wound becomes infected. Often the wound is left open to heal. In addition to wound care, a tetanus shot may be given, if needed. Home care Wash your hands well with soap and warm water before and after caring for the wound. This helps lower the risk of infection. Care for the wound as directed. If a dressing was applied to the wound, be sure to change it as directed. If the wound bleeds, place a clean, soft cloth on the wound. Then firmly apply pressure until the bleeding stops. This may take up to 5 minutes. Don't release the pressure and look at the wound during this time. Always get medical attention for cat bites on the hand. They are highly likely to become infected. Most wounds heal within 10 days. But an infection can occur even with proper treatment. So be sure to check the wound daily for signs of infection (see below). Antibiotics may be prescribed. These help prevent or treat infection. If you re given antibiotics, take them as directed. Also be sure to complete the medicines. Rabies prevention Rabies is a virus that can be carried in certain animals. These can include domestic animals such as cats and dogs. Pets fully vaccinated against rabies (2 shots) are at very low risk of infection. But because human rabies is almost always fatal, any biting pet should be confined for 10 days as an extra precaution. In general, if there is a risk for rabies, the following steps may need to be taken: If someone s pet cat has bitten you, it should be kept in a secure area for the next 10 days to watch for signs of illness. If the pet process design chemical engineer won t allow this, contact your local animal control center. If the cat becomes ill or dies during that time, contact your local animal control center at once so the animal may be tested for rabies. If the cat stays healthy for the next 10 days, there is no danger of rabies in the animal or you. If a stray cat bit you, contact your local animal control center. They can give information on capture, quarantine, and animal rabies testing. If you can t find the animal that bit you in the next 2 days, and if rabies exists in your area, you may need to receive the rabies vaccine series. Call your healthcare provider right away. Or returnto the emergency department promptly. All animal bites should be reported to the local animal control center. If you were not given a form to fill out, you can report this yourself. Follow-up care Follow up with your healthcare provider, or as directed. When to seek medical advice Call your healthcare provider right away if any of these occur: Signs of infection: oSpreading redness or warmth from the wound oIncreased pain or swelling oFever of 100.4 F (38 C) or higher, or as directed by your healthcare provider oColored fluid or pus draining from the wound oEnlarged lymph nodes above the area that was bitten, such as lymph nodes in the armpit if you werebitten on the hand or arm. This may be a sign of cat-scratch disease (cat-scratch fever). Signs of rabies infection: oHeadache oConfusion oStrange behavior oIncreased salivating or drooling oSeizure Decreased ability to move any body part near the bite area Bleeding that can't be stopped after 5 minutes of firm pressure [id number] [employer]. [address] [place] [address]. All rights reserved. This information is not intended as a substitute for professional medical care. Always follow yourhealthcare professional's instructions. Additional Information VACCINATE! IT SAVES LIVES! Members of the community who have not yet received the COVID-19 vaccine and would like to receive it can visit one of [facility] vaccine clinics. There are many vaccine clinic locations within the [facility]. For locations and available times, please visit [email or web address] It is important to note that some COVID mobile vaccine clinics are held outdoors and may be canceled in rainy or stormy conditions. To learn more about pediatric vaccinations (ages 5-11), we invite you to visit the [facility] webpage. [email or web address] learn more about the COVID-19 vaccine, we invite you to visit the CDC website for a list of frequently asked questions. https://www.cdc.gov/coronavirus/2019-ncov/vaccines/faq.html [facility] Patient Portal Access Instructions: Stay connected with your healthcare team and access your personal medical information anytime with the [email or web address] Patient Portal. If you would like a full copy of your medical records please contact the [facility] Medical Records Department Wednesday through Wednesday between 8a.m. and 4:30p.m. Please follow the directions below to access the portal: 1.Access the email account you provided upon registration to the [facility].2.Look for an invitation email from [facility].3.Open the email and access the invitation link: Accept Invitation to [facility]4.Fill in the required abbasi to create your account. Sign into www.[employer] with your username and password that you created in the above steps to stay up to date. You can then view a summary of results, a summary of your visits, and the ability to download your summaries to your computer or send the information securely to a physician. Remember that your healthcare information is confidential, so carefully consider who you will allow to register on the [facility] Patient Portal for access to your information. You can also access the [facility] Patient Portal on the [employer] chica. Simply click on Health Records under [employer] and then click on the [employer] logo. HOW TO SAFELY DISPOSE OF PRESCRIPTION MEDICATIONS Please use one of the following methods to safely dispose of your unused medications. 1.Use a drug disposal kit: the drug disposal pouch allows you to safely discard your old and unuseddrugs. Ask your nurse to give you one when you are discharged.2.Visit a local take-back location: Many local pharmacies and police departments have programs that collect old and unwanted prescriptiondrugs. Call your local pharmacy or go to http://[employer]/6P6Rk6v to find one close to you.3.Make use of household items: Use cat litter or old coffee grounds to dispose medications if other options arenot available. Mix your drugs with these household products, seal them in an airtight container andthrow it into the garbage. Call [facility]: [phone] to be sure your drugs can be disposed of in this way. Some medicines may require a different approach.4.Never flush your medications down the toilet. IF YOU HAVE BEEN PRESCRIBED AN OPIOIDS FOR PAIN If you have been prescribed an opioid (such as hydrocodone, oxycodone or morphine), it is critical to understand the possible side effects and risks of opioid pain medications. Even when taken as directed, opioids can have several side effects including: Tolerance, meaning you might need to take more of a medication for the same pain relief. Nausea, vomiting and/or constipation. Sleepiness, dizziness, dry mouth, confusion, depression or itching. Physical dependence, meaning you have withdrawal symptoms when a medication is stopped ? this can develop within a few days. KNOW YOUR RESPONSIBILITIES It is important to know exactly how much and how often to take the opioid pain medications you are prescribed. Never take opioids in higher amounts or more often than prescribed. Do not combine opioids with alcohol or other drugs that cause drowsiness, such as benzodiazepines, also known as benzos,including diazepam and alprazolam, muscle relaxants or sleep aids. Never sell or share prescriptionopioids. This is illegal. Store opioids in a secure place and out of reach of others (including children, family, friends and visitors). The last page(s) of this document has been signed and retained as a CHART COPY Signatures Patient Education Materials Cat Bite Medication Leaflets My discharge plan and instructions have been reviewed and explained to me and I,KARINA FERNANDO understand my current condition and have read and understand these discharge instructions. I have received a written copy of the plan/instructions. If I have questions, I am aware that I should contact my doctor. 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 In such cases, the wound is cleaned andthen sometimes closed. If the wound is closed it is usually not closed completely. This is so that fluid can drain if the wound becomes infected. Often the wound is left open to heal. In addition to wound care, a tetanus shot may be given, if needed. Home care Wash your hands well with soap and warm water before and after caring for the wound. This helps lower the risk of infection. Care for the wound as directed. If a dressing was applied to the wound, be sure to change it as directed. If the wound bleeds, place a clean, soft cloth on the wound. Then firmly apply pressure until the bleeding stops. This may take up to 5 minutes. Don't release the pressure and look at the wound during this time. Always get medical attention for cat bites on the hand. They are highly likely to become infected. Most wounds heal within 10 days. But an infection can occur even with proper treatment. So be sure to check the wound daily for signs of infection (see below). Antibiotics may be prescribed. These help prevent or treat infection. If you re given antibiotics, take them as directed. Also be sure to complete the medicines. Rabies prevention Rabies is a virus that can be carried in certain animals. These can include domestic animals such as cats and dogs. Pets fully vaccinated against rabies (2 shots) are at very low risk of infection. But because human rabies is almost always fatal, any biting pet should be confined for 10 days as an extra precaution. In general, if there is a risk for rabies, the following steps may need to be taken: If someone s pet cat has bitten you, it should be kept in a secure area for the next 10 days to watch for signs of illness. If the pet process design chemical engineer won t allow this, contact your local animal control center. If the cat becomes ill or dies during that time, contact your local animal control center at once so the animal may be tested for rabies. If the cat stays healthy for the next 10 days, there is no danger of rabies in the animal or you. If a stray cat bit you, contact your local animal control center. They can give information on capture, quarantine, and animal rabies testing. If you can t find the animal that bit you in the next 2 days, and if rabies exists in your area, you may need to receive the rabies vaccine series. Call your healthcare provider right away. Or returnto the emergency department promptly. All animal bites should be reported to the local animal control center. If you were not given a form to fill out, you can report this yourself. Follow-up care Follow up with your healthcare provider, or as directed. When to seek medical advice Call your healthcare provider right away if any of these occur: Signs of infection: oSpreading redness or warmth from the wound oIncreased pain or swelling oFever of 100.4 F (38 C) or higher, or as directed by your healthcare provider oColored fluid or pus draining from the wound oEnlarged lymph nodes above the area that was bitten, such as lymph nodes in the armpit if you werebitten on the hand or arm. This may be a sign of cat-scratch disease (cat-scratch fever). Signs of rabies infection: oHeadache oConfusion oStrange behavior oIncreased salivating or drooling oSeizure Decreased ability to move any body part near the bite area Bleeding that can't be stopped after 5 minutes of firm pressure [id number] [employer]. [address] [place] [address]. All rights reserved. This information is not intended as a substitute for professional medical care. Always follow yourhealthcare professional's instructions. Follow Up Care 01/28/2024 12:46:23 With:TU HECTOR DO Address: [address] [place] [phone] When:2-4 days [facility] 07-12-2024 Note Discharge Instructions Thank you for allowing [facility] to assist you with your healthcare needs. The following is importantdischarge information regarding your hospital visit. Diagnosis from Today's Visit Cat bite What to Do Next Instructions from Your Care Team No qualifying data available. Post Acute Orders No qualifying data available. You Need to Schedule the Following Appointments Follow Up with TU HECTOR DO When:Within 2-4 days Where:[address] [place] [address] [phone] Allergies Ceclor Hives Fosamax Swelling / lump finding, Muscle ache Ultram Itching erythromycin Stomach pain morphine Vomiting penicillin Hives Immunizations This Visit Given Vaccine Datetetanus/diphth/pertuss (Tdap) adult/adol 01/28/2024 Medications Please ask your primary doctor or pharmacist before taking any other medication not listed, including over the counter drugs, herbal medications, vitamins and or supplements as they may interact withyour home medications. What How Much When Why Instructions Last Dose New doxycycline (doxycycline hyclate 100 mg oral capsule) 1 cap by mouth Two (2) times a day Duration: 14 Days Printed Prescription Unchanged acetaminophen-oxyCODONE (acetaminophen-oxyCODONE 325 mg-5 mg oral tablet) 1 tab(s) by mouth Two (2) times a day Unchanged albuterol (Ventolin HFA MDI (90 mcg/ inh) inhalation aerosol) 2 puff(s) by inhalation Four (4) times a day as needed for as needed for wheezing Cough Acute URI Duration: 30 Days Unchanged busPIRone (busPIRone 10 mg oral tablet) 1 tab(s) by mouth Three (3) times a day as needed for as needed for anxiety Anxiety Unchanged cyanocobalamin (Vitamin B12 50 mcg oral tablet) 1 tab(s) by mouth Once a day Unchanged herbal/ nutritional product (turmeric 500 mg oral capsule) 1 cap by mouth Two (2) times a day Unchanged hydroCHLOROthiazide (hydroCHLOROthiazide 25 mg oral tablet) 1 tab(s) by mouth Once a day HTN - Hypertension Unchanged Misc Medication (Mult. Vitamins by [facility]) Carotomax, OmegaGuard, Osteo Matrix, Sona-Palak Gold w/ Vit. K, Optiflora D1 Unchanged pantoprazole (pantoprazole 40 mg oral enteric coated tablet) 1 tab(s) by mouth Once a day GERD (gastroesophageal reflux disease) Acid reflux Unchanged simvastatin (simvastatin 20 mg oral tablet) 1 tab(s) by mouth Daily at bedtime Hyperlipidemia Unchanged traZODone (traZODone 100 mg oral tablet) 1 tab(s) by mouth Daily at bedtime Insomnia Duration: 90 Days Dose adjusted Please take this list to your next doctor s visit. Bring all medications you take, including over the counter medications, herbals and other supplements with you to your doctor s visit. Patients and families are reminded to discard old lists and to update any records with all medication providers or retail pharmacies. Medication Leaflets doxycycline (oral/injection) (DOX toribio smith) Acticlate, Adoxa, Alodox, Avidoxy, Doryx, Doryx MPC, Lymepak, Mondoxyne NL, Monodox, Morgidox, Morgidox 0d830wh, Morgidox 9d645jw, Okebo, Oracea, Targadox, Vibramycin, Vibramycin Monohydrate What is the most important information I should know about doxycycline? You should not take this medicine if you are allergic to any tetracycline antibiotic. Children younger than 8 years old should use doxycycline only in cases of severe or life-threatening conditions. This medicine can cause permanent yellowing or graying of the teeth in children Using doxycycline during could harm the unborn baby or cause permanent tooth discoloration later in the baby's life. What is doxycycline? Doxycycline is a tetracycline antibiotic that Doxycycline is used to treat many different bacterial infections, such as acne, urinary tract infections, intestinal infections, eye infections, gonorrhea, chlamydia, periodontitis (gum disease), andothers. Doxycycline is also used to treat blemishes, bumps, and acne-like lesions caused by rosacea. Doxycycline will not treat facial redness caused by rosacea. Some forms of doxycycline are used to prevent malaria, to treat anthrax, or to treat infections caused by mites, ticks, or lice. Doxycycline may also be used for purposes not listed in this medication guide. What should I discuss with my healthcare provider before taking doxycycline? You should not take this medicine if you are allergic to doxycycline or other tetracycline antibiotics such as demeclocycline, minocycline, tetracycline, or tigecycline. Tell your doctor if you have ever had: liver disease; kidney disease; asthma or sulfite allergy; increased pressure inside your skull; or if you also take isotretinoin, seizure medicine, or a blood thinner such as warfarin (Coumadin). If you are using doxycycline to treat gonorrhea, your doctor may test you to make sure you do not also have syphilis, another sexually transmitted disease. Taking this medicine during may affect tooth and bone development in the unborn baby. Taking doxycycline during the last half of can cause permanent tooth discoloration later in the baby's life. Tell your doctor if you are or if you become . Doxycycline can make control pills less effective. Ask your doctor about using a non-hormonalbirth control (condom, diaphragm with spermicide) to prevent . Doxycycline can pass into breast milk and may affect bone and tooth development in a nursing infant. Do not breastfeed while you are taking doxycycline. Doxycycline can cause permanent yellowing or graying of the teeth in children younger than 8 years old. Children should use doxycycline only in cases of severe or life-threatening conditions such as anthrax or [place] spotted fever. The benefit of treating a serious condition may outweigh any risks to the child's tooth development. How should I take doxycycline? Follow all directions on your prescription label and read all medication guides or instruction sheets. Use the medicine exactly as directed. Take doxycycline with a full glass of water. Drink plenty of liquids while you are taking doxycycline. Read and carefully follow any Instructions for Use provided with your medicine. Ask your doctor or pharmacist if you do not understand these instructions. Most brands of doxycyline may be taken with food or milk if the medicine upsets your stomach. Different brands of doxycycline may have different instructions about taking them with or without food. Take Oracea on an empty stomach, at least 1 hour before or 2 hours after a meal. You may need to split a doxycycline tablet to get the correct dose. Follow your doctor's instructions. Swallow a delayed-release capsule or tablet whole. Do not crush, chew, break, or open it. Measure liquid medicine with the dosing syringe provided, or with a special dose-measuring spoon ormedicine cup. If you do not have a dose-measuring device, ask your pharmacist for one. If you take doxycycline to prevent malaria: Start taking the medicine 1 or 2 days before entering an area where malaria is common. Continue taking the medicine every day during your stay and for at least 4 weeks after you leave the area. Doxycycline is usually given by injection only if you are unable to take the medicine by mouth. A healthcare provider will give you this injection as an infusion into a vein. Use this medicine for the full prescribed length of time, even if your symptoms quickly improve. Skipping doses can increase your risk of infection that is resistant to medication. Doxycycline will not treat a viral infection such as the flu or a common cold. Store at room temperature away from moisture, heat, and light. Throw away any unused medicine after the expiration date on the label has passed. Using doxycycline can cause damage to your kidneys. What happens if I miss a dose? Take the medicine as soon as you can, but skip the missed dose if it is almost time for your next dose. Do not take two doses at one time. What happens if I overdose? Seek emergency medical attention or call the Poison Help line at . What should I avoid while taking doxycycline? Do not take iron supplements, multivitamins, calcium supplements, antacids, or laxatives within 2 hours before or after taking doxycycline. Avoid taking any other antibiotics with doxycycline unless your doctor has told you to. Doxycycline could make you sunburn more easily. Avoid sunlight or tanning beds. Wear protective clothing and use sunscreen (SPF 30 or higher) when you are outdoors. Antibiotic medicines can cause diarrhea, which may be a sign of a new infection. If you have diarrhea that is watery or bloody, call your doctor. Do not use anti-diarrhea medicine unless your doctor tells you to. What are the possible side effects of doxycycline? Get emergency medical help if you have signs of an allergic reaction (hives, difficult breathing, swelling in your face or throat) or a severe skin reaction (fever, sore throat, burning in your eyes,skin pain, red or purple skin rash that spreads and causes blistering and peeling). Seek medical treatment if you have a serious drug reaction that can affect many parts of your body.Symptoms may include: skin rash, fever, swollen glands, flu- like symptoms, muscle aches, severe weakness, unusual bruising, or yellowing of your skin or eyes. This reaction may occur several weeks after you began using doxycycline. Call your doctor at once if you have: severe stomach pain, diarrhea that is watery or bloody; throat irritation, trouble swallowing; chest pain, irregular heart rhythm, feeling short of breath; little or no urination; low white blood cell counts--fever, chills, swollen glands, body aches, weakness, pale skin, easy bruising or bleeding; increased pressure inside the skull--severe headaches, ringing in your ears, dizziness, nausea, vision problems, pain behind your eyes; or signs of liver or pancreas problems--loss of appetite, upper stomach pain (that may spread to your back), tiredness, nausea or vomiting, fast heart rate, dark urine, jaundice (yellowing of the skin or eyes). Common side effects may include: nausea, vomiting, upset stomach, loss of appetite; mild diarrhea; skin rash or itching; darkened skin color; or vaginal itching or discharge. This is not a complete list of side effects and others may occur. Call your doctor for medical advice about side effects. You may report side effects to FDA at 6-358-CLF-4208. What other drugs will affect doxycycline? Sometimes it is not safe to use certain medications at the same time. Some drugs can affect your blood levels of other drugs you take, which may increase side effects or make the medications less effective. Other drugs may affect doxycycline, including prescription and ixyx-gjp-zjeoyjj medicines, vitamins, and herbal products. Tell your doctor about all your current medicines and any medicine you start or stop using. Where can I get more information? Your pharmacist can provide more information about doxycycline. Remember, keep this and all other medicines out of the reach of children, never share your medicines with others, and use this medication only for the indication prescribed. Every effort has been made to ensure that the information provided by [employer]. ('[employer]') is accurate, up-to-date, and complete, but no guarantee is made to that effect. Drug information contained herein may be time sensitive. [employer] information has been compiled for use by healthcare practitioners and consumers in the [place] and therefore [employer] does not warrant that uses outside of the [place] are appropriate, unless specifically indicated otherwise. [employer] drug information does not endorse drugs, diagnose patients or recommend therapy. [employer] drug information isan informational resource designed to assist licensed healthcare practitioners in caring for their p atients and/or to serve consumers viewing this service as a supplement to, and not a substitute for, the expertise, skill, knowledge and judgment of healthcare practitioners. The absence of a warningfor a given drug or drug combination in no way should be construed to indicate that the drug or drug combination is safe, effective or appropriate for any given patient. [employer] does not assume any responsibility for any aspect of healthcare administered with the aid of information [employer] provides. The information contained herein is not intended to cover all possible uses, directions, precautions, warnings, drug interactions, allergic reactions, or adverse effects. If you have questions about the drugs you are taking, check with your doctor, nurse or pharmacist. Copyright 2744-7882 [employer]. Version: 25.. Revision Date: 03/24/2023. Education Materials Cat Bite A cat bite can cause a wound deep enough to break the skin. In such cases, the wound is cleaned andthen sometimes closed. If the wound is closed it is usually not closed completely. This is so that fluid can drain if the wound becomes infected. Often the wound is left open to heal. In addition to wound care, a tetanus shot may be given, if needed. Home care Wash your hands well with soap and warm water before and after caring for the wound. This helps lower the risk of infection. Care for the wound as directed. If a dressing was applied to the wound, be sure to change it as directed. If the wound bleeds, place a clean, soft cloth on the wound. Then firmly apply pressure until the bleeding stops. This may take up to 5 minutes. Don't release the pressure and look at the wound during this time. Always get medical attention for cat bites on the hand. They are highly likely to become infected. Most wounds heal within 10 days. But an infection can occur even with proper treatment. So be sure to check the wound daily for signs of infection (see below). Antibiotics may be prescribed. These help prevent or treat infection. If you re given antibiotics, take them as directed. Also be sure to complete the medicines. Rabies prevention Rabies is a virus that can be carried in certain animals. These can include domestic animals such as cats and dogs. Pets fully vaccinated against rabies (2 shots) are at very low risk of infection. But because human rabies is almost always fatal, any biting pet should be confined for 10 days as an extra precaution. In general, if there is a risk for rabies, the following steps may need to be taken: If someone s pet cat has bitten you, it should be kept in a secure area for the next 10 days to watch for signs of illness. If the pet process design chemical engineer won t allow this, contact your local animal control center. If the cat becomes ill or dies during that time, contact your local animal control center at once so the animal may be tested for rabies. If the cat stays healthy for the next 10 days, there is no danger of rabies in the animal or you. If a stray cat bit you, contact your local animal control center. They can give information on capture, quarantine, and animal rabies testing. If you can t find the animal that bit you in the next 2 days, and if rabies exists in your area, you may need to receive the rabies vaccine series. Call your healthcare provider right away. Or returnto the emergency department promptly. All animal bites should be reported to the local animal control center. If you were not given a form to fill out, you can report this yourself. Follow-up care Follow up with your healthcare provider, or as directed. When to seek medical advice Call your healthcare provider right away if any of these occur: Signs of infection: oSpreading redness or warmth from the wound oIncreased pain or swelling oFever of 100.4 F (38 C) or higher, or as directed by your healthcare provider oColored fluid or pus draining from the wound oEnlarged lymph nodes above the area that was bitten, such as lymph nodes in the armpit if you werebitten on the hand or arm. This may be a sign of cat-scratch disease (cat-scratch fever). Signs of rabies infection: oHeadache oConfusion oStrange behavior oIncreased salivating or drooling oSeizure Decreased ability to move any body part near the bite area Bleeding that can't be stopped after 5 minutes of firm pressure 9314-5618 [employer]. [address] [place] [address]. All rights reserved. This information is not intended as a substitute for professional medical care. Always follow yourhealthcare professional's instructions. Additional Information VACCINATE! IT SAVES LIVES! Members of the community who have not yet received the COVID-19 vaccine and would like to receive it can visit one of [facility] vaccine clinics. There are many vaccine clinic locations within the [facility]. For locations and available times, please visit www.[email or web address].[place].gov/. It is important to note that some COVID mobile vaccine clinics are held outdoors and may be canceled in rainy or stormy conditions. To learn more about pediatric vaccinations (ages 5-11), we invite you to visit the [facility] webpage. https://www.[email or web address].org/pages/5564-Ceeak-Vuuacymlopq-Lxyyeypfiu-Rxesn-Ekf stions.htmlTo learn more about the COVID-19 vaccine, we invite you to visit the CDC website for a list of frequently asked questions. https://www.cdc.gov/coronavirus/2019-ncov/vaccines/faq.html [facility] Patient Portal Access Instructions: Stay connected with your healthcare team and access your personal medical information anytime with the [facility] Patient Portal. If you would like a full copy of your medical records please contact the [facility] Medical Records Department Wednesday through Wednesday between 8a.m. and 4:30p.m. Please follow the directions below to access the portal: 1.Access the email account you provided upon registration to the [facility].2.Look for an invitation email from [facility].3.Open the email and access the invitation link: Accept Invitation to [facility].Fill in the required abbasi to create your account. Sign into www.[employer] with your username and password that you created in the above steps to stay up to date. You can then view a summary of results, a summary of your visits, and the ability to download your summaries to your computer or send the information securely to a physician. Remember that your healthcare information is confidential, so carefully consider who you will allow to register on the [facility] Patient Portal for access to your information. You can also access the [facility] Patient Portal on the [employer] chica. Simply click on Health Records under [employer] and then click on the [employer] logo. HOW TO SAFELY DISPOSE OF PRESCRIPTION MEDICATIONS Please use one of the following methods to safely dispose of your unused medications. 1.Use a drug disposal kit: the drug disposal pouch allows you to safely discard your old and unuseddrugs. Ask your nurse to give you one when you are discharged.2.Visit a local take-back location: Many local pharmacies and police departments have programs that collect old and unwanted prescriptiondrugs. Call your local pharmacy or go to http://[employer]/2X4Gu7a to find one close to you.3.Make use of household items: Use cat litter or old coffee grounds to dispose medications if other options arenot available. Mix your drugs with these household products, seal them in an airtight container andthrow it into the garbage. Call [facility]: [phone] to be sure your drugs can be disposed of in this way. Some medicines may require a different approach.4.Never flush your medications down the toilet. IF YOU HAVE BEEN PRESCRIBED AN OPIOIDS FOR PAIN If you have been prescribed an opioid (such as hydrocodone, oxycodone or morphine), it is critical to understand the possible side effects and risks of opioid pain medications. Even when taken as directed, opioids can have several side effects including: Tolerance, meaning you might need to take more of a medication for the same pain relief. Nausea, vomiting and/or constipation. Sleepiness, dizziness, dry mouth, confusion, depression or itching. Physical dependence, meaning you have withdrawal symptoms when a medication is stopped ? this can develop within a few days. KNOW YOUR RESPONSIBILITIES It is important to know exactly how much and how often to take the opioid pain medications you are prescribed. Never take opioids in higher amounts or more often than prescribed. Do not combine opioids with alcohol or other drugs that cause drowsiness, such as benzodiazepines, also known as benzos,including diazepam and alprazolam, muscle relaxants or sleep aids. Never sell or share prescriptionopioids. This is illegal. Store opioids in a secure place and out of reach of others (including children, family, friends and visitors). The last page(s) of this document has been signed and retained as a CHART COPY Signatures Patient Education Materials Cat Bite Medication Leaflets doxycycline (oral/injection) My discharge plan and instructions have been reviewed and explained to me and I,KARINA FERNANDO understand my current condition and have read and understand these discharge instructions. I have receiveda written copy of the plan/instructions. If I have questions, I am aware that I should contact my do ctor. 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 Tu Hector, DO Status:REG ER Location: ED HPI <HOPE Davey - Last Filed: 07/13/23 17:08> History of Present Illness Chief Complaint: Bite Narrative Narrative: Patient is a 72-year-old female with history of COPD, anxiety, chronic back painwho presents to the emergency department after being bit by her cat to the left hand. Patient states he is currently on some antibiotic for bronchitis however she is not sure which one. She does have an allergy to penicillin which she gets hives. Patient denies any other injury. Patient dates that her tetanus vaccination is not up-to-date. PFSH <HOPE Davey - Last Filed: 07/13/23 17:08> [facility] Home Medications pantoprazole 40 mg tablet,delayed release 40 mg PO DAILY 02/09/16 [History Last Taken Unknown] valacyclovir 500 mg tablet (Valtrex) 500 mg PO BID 02/09/16 [History Last Taken Unknown] albuterol sulfate 90 mcg/actuation aerosol inhaler 1 - 2 puff inhalation Q4H PRNPRN Sob &/Or Wheezing 08/24/19 [History Last Taken Unknown] buspirone 10 mg tablet 10 mg PO TID 08/24/19 [History Last Taken Unknown] loratadine 10 mg tablet 10 mg PO DAILY 08/24/19 [History Last Taken Unknown] trazodone 50 mg tablet 50 mg PO QHS 08/24/19 [History Last Taken Unknown] clindamycin HCl 300 mg capsule 300 mg PO Q8H 7 days #21 caps 07/13/23 [Rx Last Taken Unknown] Allergy/AdvReac Type Severity Reaction Status Date / Time alendronate sodium Allergy Pain in Verified 07/13/23 15:21 [From Fosamax] joints cefaclor [From Ceclor] Allergy Hives Verified 07/13/23 15:21 Penicillins Allergy Hives Verified 07/13/23 15:21 tramadol HCl [From Ultram] Allergy Hives Verified 07/13/23 15:21 erythromycin base AdvReac Nausea Verified 07/13/23 15:21 Social History Smoking Status: Former smoker ROS <HOPE Davey - Last Filed: 07/13/23 17:08> ROS ED ROS Narrative Constitutional: Negative for fever, chills, weight loss, weakness Eyes: Negative for vision loss, vision change, double vision ENT: Negative for any sore throat, ear pain, congestion Cardiovascular: Negative for any chest pain, tightness, palpitations Respiratory: Negative for any cough, sputum production, hemoptysis, dyspnea, dyspnea on exertion, orthopnea Gastrointestinal: Negative for any abdominal pain, nausea, vomiting, diarrhea, constipation, blood in stool, blood in vomit : Negative for any urinary frequency, dysuria, retention, blood in urine Muscle skeletal: Negative for any myalgias, arthralgias, neck pain, back pain Neurological: Negative for any headache, syncope, paresthesias, dizziness Skin: Negative for any rashes, lumps, itching, abrasions, lacerations. Positivefor swelling, pain to the left hand from the cat bite Psychiatric: Negative for any depression, anxiety, stress, suicidal ideation, homicidal ideation Hematologic: Negative for any easy bruising, excessive bruising, easy bleeding Allergies: Negative for any eczema, hives, rash EXAM <HOPE Davey - Last Filed: 07/13/23 17:08> Physical Exam Narrative Exam Narrative: Vital signs reviewed. Extremities: No peripheral edema, no signs of gross trauma or deformity. Activefull range of motion of all extremities. Patient has full range of motion, she does have an area of erythema to the dorsal aspect of the hand, there is no significant swelling, there is no significant cellulitis. I do see a small puncture wound, there is no gross drainage. No abscess formation. Neuro: Cranial nerves II through XII intact, no focal neurological deficits. Skin: Clean dry and intact with no rash, purpura, petechiae, vesicles or pustules. Backs/flank: No CVA tenderness, no midline spinal tenderness, no deformity. Psych: Normal mood and affect. No SI, HI or acute psychosis. Const Vital Signs: 07/13/23 15:22 Temperature 97.8 F Temperature Source Temporal Pulse Rate 59 L Respiratory Rate 18 Blood Pressure 148/91 H Blood Pressure Mean 110 Pulse Ox 96 Oxygen Delivery Method Room Air <Dr. Chris Maria MD - Last Filed: 07/13/23 17:09> Physical Exam Const Vital Signs: 07/13/23 15:22 Temperature 97.8 F Temperature Source Temporal Pulse Rate 59 L Respiratory Rate 18 Blood Pressure 148/91 H Blood Pressure Mean 110 Pulse Ox 96 Oxygen Delivery Method Room Air MDM <HOPE Davey Last Filed: 07/13/23 17:08> [facility] Treatment and Re-Evaluation :: Patient appears generally well, patient appears nontoxic, vital signs are stable. Presenting to the emergency department with a cat bite to the left hand. Differential diagnoses include cellulitis, abscess formation, tendon synovitis. Physical examination insistent with cellulitis. There is some redness and swelling. Patient does have a history of amoxicillin, penicillin, patient replaced on clindamycin 300 mg 3 times a day for 1 week. She will stop her antibiotics for her bronchitis this is likely a viral respite respiratory tract infection. She will be up-to-date on her tetanus vaccination today, she is instructed to return for any worsening symptoms. All questions were answered, patient stable for discharge. <Dr. Chris Maria MD - Last Filed: 07/13/23 17:09> [facility] Narrative Medical decision making narrative: I have personally performed a face to face assessment of the patient and have reviewed the [facility] Note. I performed a substantive portion of the visit including all aspects of the following. My rebollar findings include: History is 72-year-old female bit by her cat earlier today in her dorsum of her left hand. No other complaints. Exam is [well-appearing 72-year-old female. Vital signs stable afebrile. HEENT exam unremarkable. Lungs clear. Heart regular rhythm no murmur. Chest wall nontender. Abdomen soft nontender. Dorsum of the left hand puncture wound cat bite. Minimal swelling. No significant tenderness. No lymphangitic streaking. No tenosynovitis. No axillary lymphadenopathy.] Medical Decision Making [Bite left hand. Started on clindamycin. Follow-up if getting worse. Return.] Other additions or changes: [None] Discharge Plan Triage Chief Complaint: Bite ED Midlevel Provider: Richard Koo ED Provider: Chris Maria Dx/Rx/DC Orders Clinical Impression: Cat bite Instructions: ED Cat Bite Prescriptions: New clindamycin HCl 300 mg capsule 300 mg PO Q8H 7 Days Qty: 21 0RF No Action valacyclovir [Valtrex] 500 MG tablet 500 mg PO BID pantoprazole 40 MG tablet 40 mg PO DAILY trazodone 50 MG tablet 50 mg PO QHS buspirone 10 MG tablet 10 mg PO TID albuterol sulfate 1 INHALER inhaler 1 - 2 puff inhalation Q4H PRN PRN (Reason: Sob &/Or Wheezing) loratadine 10 MG tablet 10 mg PO DAILY Primary Care Provider: Tu Hector Referrals: Tu Hector DO [Primary Care Provider] - Activity Restrictions/Additional Instructions: Please make sure he elevate, take off your rings. Take the clindamycin stop taking the other antibiotic. Will take the clindamycin 3 times a day for 1 week. Return for any worsening symptoms. Disposition Disposition: Home, Self Care What to do if you have Problems For any increased pain, shortness of breath, bleeding, nausea or vomiting, chestpain, or any unexpected problems, contact your Primary Care Provider. Call [facility] ([phone]) or report to the closest Emergency Room. Call 911 if necessary. 07/13/231708 <Electronically signed by Chris Maria MD> Cosigner Signature (if applicable): 07/13/231707 <Electronically signed by Richard Koo NP-C> CC: Dr. Tu Hector, ~ Signed [facility] Work Phone: 1(296) 974-416407-03-2023 Telephone encounter Note* Telephone Encounter - Marty Daily PA-C - 01/18/2023 9:23 AM EDT PAT orders done [facility] Work Phone: 1(750) 465-625407-03-2023 Miscellaneous Notes* Telephone Encounter - Marty Daily PA-C - 01/18/2023 9:23 AM EDT PAT orders done * Telephone Encounter - Dannielle Izaguirre - 01/15/2023 4:03 PM EDT No PAT- H&P day of surgery Case# [id number] Surgery: Waqas 01/21/23 @ 7:30am Procedure: Resection mass left elbow Dx: Left elbow mass Anesthesia: General [facility] [place] Insurance-no prior auth needed for outpatient Patient aware of surgery date and time documented in this [facility]06-30-2023 Telephone encounter Note* Telephone Encounter - Dannielle Izaguirre - 01/15/2023 4:03 PM EDT No PAT- H&P day of surgery Case# [id number] Surgery: Waqas 01/21/23 @ 7:30am Procedure: Resection mass left elbow Dx: Left elbow mass Anesthesia: General [facility] [place] Insurance-no prior auth needed for outpatient Patient aware of surgery date and [id number] History of Present illness Narrative* Oz Salazar MD - 01/12/2023 10:15 AM EDT Formerly [facility] [address] [place] [address] [place] [phone] Dept: [phone] Dept Chief Complaint Patient presents with New Patient Mass left elbow/Dr Arriaga SUBJECTIVE HPI Karina is a 72-year-old female who presents as a referral from Dr. Arriaga for a left posterior elbowmass. She reports that she has noticed the mass about 5 years ago and that it has slowly increased in size especially in the last year. She is retired and denies any trauma to that area or any nerve pain. She reports that the lesion is not painful and it does not increase and then decrease in size but has slowly grown over the years. She denies night pain, night sweats, unintentional weight loss,fevers or chills. She does have a history of rheumatoid arthritis and is currently taking no medications for it. There are no problems to display for this patient. Allergies Allergen Reactions Alendronate Other reaction(s): Muscle ache, Swelling / lump finding Cefaclor Hives Other reaction(s): hives, Hives and/or rash Erythromycin Other reaction(s): GI Upset, Stomach pain, stomach upset Erythromycin Base Nausea Only Famciclovir Other reaction(s): hives Gabapentin Other reaction(s): Unknown Morphine Other reaction(s): stomach upset, Vomiting Penicillins Hives Other reaction(s): hives, HIVES, Hives and/or rash Tramadol Other reaction(s): Hives, Itching, Severe nausea & vomiting, stomach upset, Vomiting Rash And Itching Hydrochlorothiazide W-Triamterene Rash No family history on file. Past Medical History: Diagnosis Date Fracture of ankle Hypertension Mass of soft tissue of upper arm LEFT ARM Spondylolisthesis, lumbar region Social History Socioeconomic History Marital status: Spouse name: Not on file Number of children: Not on file Years of education: Not on file Highest education level: Not on file Occupational History Not on file Tobacco Use Smoking status: Every Day Packs/day: 0.50 Types: Cigarettes Smokeless tobacco: Never Substance and Sexual Activity Alcohol use: Yes Drug use: Never Sexual activity: Not on file Other Topics Concern Not on file Social History Narrative Not on file Social Determinants of Health Financial Resource Strain: Not on file Food Insecurity: Not on file Transportation Needs: Not on file Physical Activity: Not on file Stress: Not on file Social Connections: Not on file Intimate Partner Violence: Not on file Housing Stability: Not on file No past surgical history on file. Current Outpatient Medications Medication Sig Dispense Refill busPIRone (Buspar) 10 MG tablet Take 10 mg by mouth 3 times daily as needed. cetirizine (ZyrTEC) 10 MG tablet Take 10 mg by mouth daily. hydroCHLOROthiazide (HYDRODiuril) 25 MG tablet Take 25 mg by mouth daily. [place]-3 Fatty Acids (OMEGA 3 500 PO) Take by mouth. oxyCODONE-acetaminophen (Percocet) 5-325 MG tablet simvastatin (Zocor) 20 MG tablet Take 20 mg by mouth Nightly. traZODone (Desyrel) 100 MG tablet Take 100 mg by mouth Nightly. Vitamin E 268 MG (400 UNIT) capsule Take by mouth. acetaminophen (Tylenol Extra Strength) 500 MG tablet Take by mouth. gabapentin (Neurontin) 300 MG capsule Take 300 mg by mouth 3 times daily. Melatonin 2.5 MG chewable tablet Chew. meloxicam (Mobic) 15 MG tablet Take by mouth. valACYclovir (Valtrex) 500 MG tablet Take by mouth. No current facility-administered medications for this visit. Review of Systems Musculoskeletal: Positive for arthralgias, joint swelling and myalgias. Eft elbow noted approx 5 years ago ,mass is increasing in size Denies discomfort unless she bumps against something pain does not radiate down arm All other systems reviewed and are negative. OBJECTIVE Vitals: 01/12/23 1024 BP: 120/75 Pulse: 77 Weight: 73.9 kg (163 lb) Height: 1.6 m (5' 3) Physical Exam Physical Exam Vitals and nursing note reviewed. Constitutional: Appearance: Normal appearance. Cardiovascular: Rate and Rhythm: Normal rate. Pulmonary: Effort: Pulmonary effort is normal. Skin: General: Skin is warm and dry. Neurological: General: No focal deficit present. Mental Status: He is alert and oriented to person, place, and time. Psychiatric: Mood and Affect: Mood normal. Behavior: Behavior normal. LUE: Firm yet mobile nontender mass superficial to the triceps just proximal to the olecranon on the posterior elbow. The lesion is proximal to where the olecranon bursa would lie. Negative Tinel's sign Motor +AIN/PIN/ulnar SILT M/R/U Radial pulse palpable XRAY INTERPRETATION The following outside images were reviewed in office today and independently interpreted below: 3 view left elbow: No acute fractures, dislocations, or osseous erosions. Soft tissue mass noted atthe posterior elbow. Left elbow MRI: Well-circumscribed mass superficial to the distal triceps at the posterior elbow. The lesion is dark on T1 enhances on T2 and has different signal within the subcutaneous fat. ASSESSMENT 1. Elbow mass, left Karina is a 72-year-old female with a left elbow mass, leading differential includes an inclusion cyst or a rheumatoid nodule. Cannot rule out a more aggressive lesion PLAN I discussed with Karina that if I know from imaging alone exactly what the lesion is and now how itsgoing to act and I would recommend observation. In Karina's case, I am not 100% sure what the lesionis in fact that is growing and nontender are 2 reasons for which I would recommend open biopsy and frozen section. I also offered that we could observe and if it continues to enlarge do surgery at that point but she elected to proceed with surgery. No follow-ups on file. Voice recognition was used for portions of this note and although it was reviewed prior to signing some incorrect words or phrases could be present. Electronically signedby Tay Rebolledo MD on 01/12/2023 at 8:50 PM documented in this [facility]06-14-2023 Note ORIGINAL EXAMINATION: BONE DENSITOMETRY 12/30/2022 11:47 am TECHNIQUE: A bone density dual x-ray absorptiometry (DEXA) scan was performed of the left forearm and left hip. COMPARISON: DEXA 04/19/2020. HISTORY: ORDERING SYSTEM PROVIDED HISTORY: Reason for Exam: Osteoporosis Screening FINDINGS: T Score Left Femoral Neck:-2.0. BMD left Femoral Neck: 0.626 (g/cm2) T Score Left Hip:-1.4. BMD left Hip: 0.770 (g/cm2) T Score Left Forearm:-1.4. BMD left Forearm: 0.601 (g/cm2) BMD Change from previous Hip: -2.4% BMD change from previous left forearm: 1.8% FRAX score: 10 year probability of fracture Major osteoporotic fracture 19 % Hip fracture 5.5 % IMPRESSION: Osteopenia by WHO criteria. I have personally reviewed the images of this examination and agree with the resident's findings and interpretation. Interpreted by: Jaswinder Holbrook DO Preliminary Report By: Marty Potter Electronically signed By Jaswinder Holbrook DO Dictated Date: 12/30/2022 1:56:14 PM Prelim Date: 12/30/2022 2:06:23 PM Sign Date: 12/30/2022 2:06:23 PM Ordering Provider: TU HANSONLAY [facility]06-14-2023 Note ORIGINAL EXAMINATION: BONE DENSITOMETRY 12/30/2022 11:47 am TECHNIQUE: A bone density dual x-ray absorptiometry (DEXA) scan was performed of the left forearm and left hip. COMPARISON: DEXA 04/19/2020. HISTORY: ORDERING SYSTEM PROVIDED HISTORY: Reason for Exam: Osteoporosis Screening FINDINGS: T Score Left Femoral Neck:-2.0. BMD left Femoral Neck: 0.626 (g/cm2) T Score Left Hip:-1.4. BMD left Hip: 0.770 (g/cm2) T Score Left Forearm:-1.4. BMD left Forearm: 0.601 (g/cm2) BMD Change from previous Hip: -2.4% BMD change from previous left forearm: 1.8% FRAX score: 10 year probability of fracture Major osteoporotic fracture 19 % Hip fracture 5.5 % IMPRESSION: Osteopenia by WHO criteria. I have personally reviewed the images of this examination and agree with the resident's findings and interpretation. Interpreted by: Jaswinder Holbrook DO Preliminary Report By: Marty Potter Electronically signed By Jaswinder Holbrook DO Dictated Date: 12/30/2022 1:56:14 PM Prelim Date: 12/30/2022 2:06:23 PM Sign Date: 12/30/2022 2:06:23 PM Ordering Provider: [facility]06-04-2023 Hospital Discharge instructions Patient Education 12/20/2022 14:28:05 Cat Bite Cat Bite A cat bite can cause a wound deep enough to break the skin. In such cases, the wound is cleaned andthen sometimes closed. If the wound is closed it is usually not closed completely. This is so that fluid can drain if the wound becomes infected. Often the wound is left open to heal. In addition to wound care, a tetanus shot may be given, if needed. Home care Wash your hands well with soap and warm water before and after caring for the wound. This helps lower the risk of infection. Care for the wound as directed. If a dressing was applied to the wound, be sure to change it as directed. If the wound bleeds, place a clean, soft cloth on the wound. Then firmly apply pressure until the bleeding stops. This may take up to 5 minutes. Don't release the pressure and look at the wound during this time. Always get medical attention for cat bites on the hand. They are highly likely to become infected. Most wounds heal within 10 days. But an infection can occur even with proper treatment. So be sure to check the wound daily for signs of infection (see below). Antibiotics may be prescribed. These help prevent or treat infection. If you re given antibiotics, take them as directed. Also be sure to complete the medicines. Rabies prevention Rabies is a virus that can be carried in certain animals. These can include domestic animals such as cats and dogs. Pets fully vaccinated against rabies (2 shots) are at very low risk of infection. But because human rabies is almost always fatal, any biting pet should be confined for 10 days as an extra precaution. In general, if there is a risk for rabies, the following steps may need to be taken: If someone s pet cat has bitten you, it should be kept in a secure area for the next 10 days to watch for signs of illness. If the pet process design chemical engineer won t allow this, contact your local animal control center. If the cat becomes ill or dies during that time, contact your local animal control center at once so the animal may be tested for rabies. If the cat stays healthy for the next 10 days, there is no da nger of rabies in the animal or you. If a stray cat bit you, contact your local animal control center. They can give information on capture, quarantine, and animal rabies testing. If you can t find the animal that bit you in the next 2 days, and if rabies exists in your area, you may need to receive the rabies vaccine series. Call your healthcare provider right away. Or returnto the emergency department promptly. All animal bites should be reported to the local animal control center. If you were not given a form to fill out, you can report this yourself. Follow-up care Follow up with your healthcare provider, or as directed. When to seek medical advice Call your healthcare provider right away if any of these occur: Signs of infection: oSpreading redness or warmth from the wound oIncreased pain or swelling oFever of 100.4 F (38 C) or higher, or as directed by your healthcare provider oColored fluid or pus draining from the wound oEnlarged lymph nodes above the area that was bitten, such as lymph nodes in the armpit if you werebitten on the hand or arm. This may be a sign of cat-scratch disease (cat-scratch fever). Signs of rabies infection: oHeadache oConfusion oStrange behavior oIncreased salivating or drooling oSeizure Decreased ability to move any body part near the bite area Bleeding that can't be stopped after 5 minutes of firm pressure [id number] [employer]. [address] [place] [address], [place] [address]. All rights reserved. This information is not intended as a substitute for professional medical care. Always follow yourhealthcare professional's instructions. Follow Up Care 12/20/2022 13:35:43 With:TU HECTOR DO Address: [address] [place] [phone] When:2-4 days [facility] 06-04-2023 Emergency department Discharge summary Discharge Instructions Thank you for allowing [facility] to assist you with your healthcare needs. The following is importantdischarge information regarding your hospital visit. Diagnosis from Today's Visit bitten by cat What to Do Next Instructions from Your Care Team No qualifying data available. Post Acute Orders No qualifying data available. You Need to Schedule the Following Appointments Follow Up with TU HECTOR DO When Within 2-4 days Where: [address] [place] [phone] Allergies Ceclor (Hives) Fosamax (Swelling / lump finding, Muscle ache) Ultram (Itching) erythromycin (Stomach pain) morphine (Vomiting) penicillin (Hives) Medications Please ask your primary doctor or pharmacist before taking any other medication not listed, including over the counter drugs, herbal medications, vitamins and or supplements as they may interact withyour home medications. What How Much When Why Instructions Last Dose New clindamycin (clindamycin 300 mg oral capsule) 1 cap by mouth Three (3) times a day Duration: 10 Days Take with a probiotic Printed Prescription New doxycycline (doxycycline hyclate 100 mg oral tablet) 1 tab(s) by mouth Two (2) times a day Duration: 10 Days Take with a probiotic Printed Prescription Unchanged albuterol (Ventolin HFA MDI (90 mcg/ inh) inhalation aerosol) 2 puff(s) by inhalation Four (4) times a day as needed for as needed for wheezing Moderate tobacco dependence Duration: 30 Days Unchanged ascorbic acid (Vitamin C) Once a day Unchanged busPIRone (busPIRone 10 mg oral tablet) 1 tab(s) by mouth Three (3) times a day as needed for as needed for anxiety Anxiety Unchanged calcium carbonate (calcium (as carbonate) 600 mg oral tablet) 2 tab(s) by mouth Once a day Unchanged cholecalciferol (Vitamin D3 1000 intl units (25 mcg) oral capsule) 1 cap by mouth Once a day Unchanged cyanocobalamin (Vitamin B12) Unchanged docusate (Dulcolax Stool Softener) by mouth Two (2) times a day Unchanged guaifenesin-pseudoephedrine (Mucinex D 60 mg-600 mg oral tablet, extended release) by mouth Two (2) times a day Unchanged hydroCHLOROthiazide (hydroCHLOROthiazide 25 mg oral tablet) 1 tab(s) by mouth Once a day HTN - Hypertension Unchanged nabumetone (nabumetone 500 mg oral tablet) 1 tab(s) by mouth Two (2) times a day Unchanged pantoprazole (pantoprazole 40 mg oral enteric coated tablet) 1 tab(s) by mouth Once a day GERD (gastroesophageal reflux disease) Unchanged simvastatin (simvastatin 20 mg oral tablet) 1 tab(s) by mouth Daily at bedtime Hyperlipidemia Unchanged traZODone (traZODone 100 mg oral tablet) 1 tab(s) by mouth Daily at bedtime Insomnia Unchanged zinc sulfate (Zinc) by mouth Once a day Please take this list to your next doctor s visit. Bring all medications you take, including over the counter medications, herbals and other supplements with you to your doctor s visit. Patients and families are reminded to discard old lists and to update any records with all medication providers or retail pharmacies. Education Materials Cat Bite A cat bite can cause a wound deep enough to break the skin. In such cases, the wound is cleaned andthen sometimes closed. If the wound is closed it is usually not closed completely. This is so that fluid can drain if the wound becomes infected. Often the wound is left open to heal. In addition to wound care, a tetanus shot may be given, if needed. Home care Wash your hands well with soap and warm water before and after caring for the wound. This helps lower the risk of infection. Care for the wound as directed. If a dressing was applied to the wound, be sure to change it as directed. If the wound bleeds, place a clean, soft cloth on the wound. Then firmly apply pressure until the bleeding stops. This may take up to 5 minutes. Don't release the pressure and look at the wound during this time. Always get medical attention for cat bites on the hand. They are highly likely to become infected. Most wounds heal within 10 days. But an infection can occur even with proper treatment. So be sure to check the wound daily for signs of infection (see below). Antibiotics may be prescribed. These help prevent or treat infection. If you re given antibiotics, take them as directed. Also be sure to complete the medicines. Rabies prevention Rabies is a virus that can be carried in certain animals. These can include domestic animals such as cats and dogs. Pets fully vaccinated against rabies (2 shots) are at very low risk of infection. But because human rabies is almost always fatal, any biting pet should be confined for 10 days as an extra precaution. In general, if there is a risk for rabies, the following steps may need to be taken: If someone s pet cat has bitten you, it should be kept in a secure area for the next 10 days to watch for signs of illness. If the pet process design chemical engineer won t allow this, contact your local animal control center. If the cat becomes ill or dies during that time, contact your local animal control center at once so the animal may be tested for rabies. If the cat stays healthy for the next 10 days, there is no da nger of rabies in the animal or you. If a stray cat bit you, contact your local animal control center. They can give information on capture, quarantine, and animal rabies testing. If you can t find the animal that bit you in the next 2 days, and if rabies exists in your area, you may need to receive the rabies vaccine series. Call your healthcare provider right away. Or returnto the emergency department promptly. All animal bites should be reported to the local animal control center. If you were not given a form to fill out, you can report this yourself. Follow-up care Follow up with your healthcare provider, or as directed. When to seek medical advice Call your healthcare provider right away if any of these occur: Signs of infection: oSpreading redness or warmth from the wound oIncreased pain or swelling oFever of 100.4 F (38 C) or higher, or as directed by your healthcare provider oColored fluid or pus draining from the wound oEnlarged lymph nodes above the area that was bitten, such as lymph nodes in the armpit if you werebitten on the hand or arm. This may be a sign of cat-scratch disease (cat-scratch fever). Signs of rabies infection: oHeadache oConfusion oStrange behavior oIncreased salivating or drooling oSeizure Decreased ability to move any body part near the bite area Bleeding that can't be stopped after 5 minutes of firm pressure [id number] [employer]. [address] [place] [address], [place] [address]. All rights reserved. This information is not intended as a substitute for professional medical care. Always follow yourhealthcare professional's instructions. Additional Information VACCINATE! IT SAVES LIVES! Members of the community who have not yet received the COVID-19 vaccine and would like to receive it can visit one of [facility] vaccine clinics. There are many vaccine clinic locations within the [facility]. For locations and available times, please visit www.[email or web address].[email or web address]/. It is important to note that some COVID mobile vaccine clinics are held outdoors and may be canceled in rainy or stormy conditions. To learn more about pediatric vaccinations (ages 5-11), we invite you to visit the [facility] webpage. [email or web address]/[email or web address] learn more about the COVID-19 vaccine, we invite you to visit the CDC website for a list of frequently asked questions. https://www.cdc.gov/coronavirus/2019-ncov/vaccines/faq.html [email or web address] Patient Portal Access Instructions: Stay connected with your healthcare team and access your personal medical information anytime with the [facility] Patient Portal. If you would like a full copy of your medical records please contact the [facility] Medical Records Department Wednesday through Wednesday between 8a.m. and 4:30p.m. Please follow the directions below to access the portal: 1.Access the email account you provided upon registration to the hospital.2.Look for an invitation email from [facility].3.Open the email and access the invitation link: Accept Invitation to [facility]4.Fill in the required abbasi to create your account. Sign into www.[employer] with your username and password that you created in the above steps to stay up to date. You can then view a summary of results, a summary of your visits, and the ability to download your summaries to your computer or send the information securely to a physician. Remember that your healthcare information is confidential, so carefully consider who you will allow to register on the [facility] Patient Portal for access to your information. You can also access the [facility] Patient Portal on the [employer] chica. Simply click on Health Records under [employer] and then click on the [employer] logo. HOW TO SAFELY DISPOSE OF PRESCRIPTION MEDICATIONS Please use one of the following methods to safely dispose of your unused medications. 1.Use a drug disposal kit: the drug disposal pouch allows you to safely discard your old and unuseddrugs. Ask your nurse to give you one when you are discharged.2.Visit a local take-back location: Many local pharmacies and police departments have programs that collect old and unwanted prescriptiondrugs. Call your local pharmacy or go to http://[employer]/6S8Uz4z to find one close to you.3.Make use of household items: Use cat litter or old coffee grounds to dispose medications if other options arenot available. Mix your drugs with these household products, seal them in an airtight container andthrow it into the garbage. Call [facility]: [phone] to be sure your drugs can be disposed of in this way. Some medicines may require a different approach.4.Never flush your medications down the toilet. IF YOU HAVE BEEN PRESCRIBED AN OPIOIDS FOR PAIN If you have been prescribed an opioid (such as hydrocodone, oxycodone or morphine), it is critical to understand the possible side effects and risks of opioid pain medications. Even when taken as directed, opioids can have several side effects including: Tolerance, meaning you might need to take more of a medication for the same pain relief. Nausea, vomiting and/or constipation. Sleepiness, dizziness, dry mouth, confusion, depression or itching. Physical dependence, meaning you have withdrawal symptoms when a medication is stopped ? this can develop within a few days. KNOW YOUR RESPONSIBILITIES It is important to know exactly how much and how often to take the opioid pain medications you are prescribed. Never take opioids in higher amounts or more often than prescribed. Do not combine opioids with alcohol or other drugs that cause drowsiness, such as benzodiazepines, also known as benzos,including diazepam and alprazolam, muscle relaxants or sleep aids. Never sell or share prescriptionopioids. This is illegal. Store opioids in a secure place and out of reach of others (including children, family, friends and visitors). The last page(s) of this document has been signed and retained as a CHART COPY Signatures Patient Education Materials Cat Bite Medication Leaflets My discharge plan and instructions have been reviewed and explained to me and I,KARINA FERNANDO understand my current condition and have read and understand these discharge instructions. I have receiveda written copy of the plan/instructions. If I have questions, I am aware that I should contact my do ctor. 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 Subjective HPI Nontoxic-appearing female presents urgent care chief complaint possible infection. Duration of symptoms last night. Associated symptoms fever body aches chills dizziness redness and pain right lower leg. Patient states on Wednesday she was bit by her cat. Has been using Tylenol for fever managementadequate success. Denies any other concerns. .Patient presents with: Rash: Bottom lower half of right leg, dizziness started at 1:30 am this morning PAST MEDICAL HISTORY Diagnosis Date Esophageal reflux Gastroesophageal reflux Goiter, unspecified Goiter Myalgia and myositis, unspecified Fibromyalgia (myalgia and myositis) Obstructive chronic bronchitis with exacerbation (HCC) COPD Pain in joint, site unspecified Joint Pain Unspec PMH - PAST MEDICAL HISTORY OF Arthritis in knees Tobacco use disorder PAST SURGICAL HISTORY Procedure Laterality Date APPENDECTOMY CARPAL TUNNEL RIGHT WRIST PAST SURGICAL HISTORY OF benign cysts removed from both breast PAST SURGICAL HISTORY OF Major surgery on back,metal rods and plate PAST SURGICAL HISTORY OF Broken right foot ALLERGIES Ceclor [Cefaclor], Dyazide [Triamterene-Hydrochlorothiazid], Eryc [Erythromycin], Penicillins, Percodan [Oxycodone Igz-Bprfgirlh-Ajq], and Ultram [Tramadol Hcl] MEDICATIONS hydroCHLOROthiazide 25 mg tablet Take 25 mg by mouth. busPIRone (BUSPAR) 10 mg tablet Buspirone Hcl Active 10 MG THREE TIMES A DAY August 24, 2019 9:19am traZODone (DESYREL) 50 mg tablet Trazodone Active 50 MG AT BEDTIME August 24, 2019 9:19am valACYclovir (VALTREX) 500 mg tablet Take 500 mg by mouth once daily. CALCIUM-VITAMIN D3 ORAL Take by mouth. Ascorbic Acid 500 mg chew Take 500 mg by mouth once daily. pantoprazole sodium(PROTONIX 40 MG TAB) Take by mouth. ALBUTEROL SULFATE HFA 90 MCG/ACTUATION AEROSOL INHALER take 2 puffs four times daily. benzonatate (TESSALON PERLES) 100 mg capsule Take 1 capsule by mouth three times daily as needed for cough. (Patient not taking: Reported on 12/20/2022) fluticasone (FLONASE) 50 mcg/actuation nasal spray Use 2 Sprays in each nostril once daily. Rinse mouth after use. (Patient not taking: Reported on 12/17/2020 ) guaiFENesin (MUCINEX) 600 mg 12 hr tablet Take 2 tablets by mouth twice daily. (Patient not taking:Reported on 11/29/2018 ) fluticasone (FLOVENT HFA) 110 mcg/actuation inhaler Inhale 2 Puffs as instructed twice daily. (Patient not taking: Reported on 11/29/2018 ) FLUoxetine (PROZAC) 10 mg capsule Take 10 mg by mouth once daily. (Patient not taking: Reported on 12/17/2020 ) FERROUS SULFATE (FE-TABS ORAL) Take by mouth. (Patient not taking: Reported on 12/17/2020 ) lisinopril (ZESTRIL, PRINIVIL) 10 mg tablet Take 10 mg by mouth once daily. (Patient not taking: Reported on 12/17/2020 ) lovastatin (MEVACOR) 20 mg tablet Take 20 mg by mouth daily at bedtime. (Patient not taking: Reported on 12/17/2020 ) diazePAM (VALIUM) 5 mg tablet Take 5 mg by mouth every 6 hours as needed. (Patient not taking: Reported on 12/17/2020) torsemide (DEMADEX) 20 mg tablet Take 1 tablet by mouth once daily. (Patient not taking: Reported on 11/29/2018 ) oxyCODONE ER (OXYCONTIN) 40 mg Tb12 Take 1 tablet by mouth every 12 hours. (Patient not taking: Reported on 07/18/2018 ) oxycodone hcl/acetaminophen(PERCOCET 10 MG-325 MG TAB) Take one tablet as needed. (Patient not taking: No sig reported) citalopram (CELEXA) 20 mg ORAL Tab Take one(1) tablet daily. (Patient not taking: ) FAMILY HISTORY Problem Relation Age of Onset Alzheimer's Disease Maternal Aunt Allergies Mother iodine Arthritis Mother Arthritis Maternal Grandmother Cancer Maternal Grandfather brain cancer Diabetes Brother diet controllled Emphysema Father Heart Father heart attack Hypertension Mother Lipids Mother Osteoporosis Mother Stroke Father Social History Tobacco Use Smoking status: Former Packs/day: 1.00 Years: 35.00 Pack years: 35.00 Types: Cigarettes Quit date: 12/15/2006 Years since quittin.0 Smokeless tobacco: Never Substance Use Topics Alcohol use: No Drug use: No BP 108/84 Pulse 115 Temp (!) 38 C (100.4 F) Resp 21 Wt 71.5 kg (157 lb 9.6 oz) SpO2 97% Review of Systems Constitutional: Positive for chills, fever and malaise/fatigue. HENT: Negative for congestion, ear discharge, ear pain, sinus pain and sore throat. Eyes: Negative for blurred vision, pain, discharge and redness. Respiratory: Negative for cough, hemoptysis, sputum production, shortness of breath, wheezing and stridor. Cardiovascular: Negative for chest pain. Gastrointestinal: Negative for abdominal pain, diarrhea, nausea and vomiting. Musculoskeletal: Positive for myalgias. Skin: Negative for itching and rash. Neurological: Positive for dizziness. Negative for headaches. Objective Physical Exam Constitutional: General: She is not in acute distress. Appearance: She is not diaphoretic. HENT: Head: Normocephalic. Eyes: Conjunctiva/sclera: Conjunctivae normal. Pupils: Pupils are equal, round, and reactive to light. Cardiovascular: Rate and Rhythm: Regular rhythm. Tachycardia present. Heart sounds: Normal heart sounds. Pulmonary: Effort: Pulmonary effort is normal. No tachypnea, accessory muscle usage or respiratory distress. Breath sounds: Normal breath sounds. No stridor. Abdominal: Palpations: Abdomen is soft. Tenderness: There is no abdominal tenderness. Musculoskeletal: Cervical back: Normal range of motion. Skin: General: Skin is warm and dry. Comments: Erythema edema noted highlighted area. Puncture wound anterior aspect of reilly noted. Neurological: Mental Status: She is alert and oriented to person, place, and time. ASSESSMENT/PLAN: 1. Cat bite, initial encounter - ICD9: 879.8, E906.3, ICD10: W55.01XA Diagnosed with cat bite. Tachycardic and febrile. Unable to obtain labs today. Recommend to be seenin ED for evaluation care. Patient will be [facility] at [facility]. Jose F Cruz APRN.RX SPECIALIST [facility] Plan note Future Scheduled Tests Laboratory* Thyroid Stimulating Hormone 07/03/22 * Lipid Profile 07/03/22 * Hepatitis C Antibody IgG 07/03/22 * Complete Metabolic Panel 07/03/22 Radiology* CT Low Dose Lung Cancer Screening (LDCT) 08/20/22 * BD Bone Density DEXA Axial Skeleton 07/27/22 [facility] 07-01-2021 Evaluation + Plan note Future Scheduled Tests Laboratory* Thyroid Stimulating Hormone 01/16/21 * Lipid Profile 01/16/21 * Complete Metabolic Panel 01/16/21 * COVID-19 Only (AO) 07/21/21 Radiology* CT Abdomen and Pelvis w/ contrast 10/21/21 [facility] 07-01-2021 Evaluation + Plan note Future Scheduled Tests Laboratory* Thyroid Stimulating Hormone 01/16/21 * Lipid Profile 01/16/21 * Complete Metabolic Panel 01/16/21 * COVID-19 Only (AO) 07/21/21 [facility] 06-29-2021 History of Present illness Narrative* Catherine Haskins RT(R) - 01/14/2021 10:20 AM EDT Radiology Service Progress Note PATIENT NAME: Karina Fernando DATE OF SERVICE: January 14, 2021 TIME: 10:19 AM PATIENT IDENTITY VERIFICATION COMPLETED USING TWO (2) IDENTIFIERS: Name and Date of confirmedby patient verbally. FALL SCREENING: Has the patient had 2 falls in the last year or 1 fall with injury or currently using an Ambulatory Assistive Device (Walker, Cane, Wheelchair, Crutches, etc.)? No PATIENT GENDER DATA: Female. status: : No status: NO. PATIENT RELEVANT IMPLANT DATA REVIEWED: Not Applicable RADIOLOGY DEPARTMENT: General X-ray: Exam(s) Completed: Chest X-Ray PERIPHERAL IV DATA: Not applicable SIGNED BY: RT Ignacio(R) January 14, 2021 10:19 AM documented [facility] History of Present illness Narrative* Laura Lebron RT(R) - 12/17/2020 2:20 PM EDT Radiology Service Progress Note PATIENT NAME: Karina Fernando DATE OF SERVICE: December 17, 2020 TIME: 2:12 PM PATIENT IDENTITY VERIFICATION COMPLETED USING TWO (2) IDENTIFIERS: Name and Date of confirmedby patient verbally. FALL SCREENING: Has the patient had 2 falls in the last year or 1 fall with injury or currently using an Ambulatory Assistive Device (Walker, Cane, Wheelchair, Crutches, etc.)? No PATIENT GENDER DATA: Female. status: : No status: NO. PATIENT RELEVANT IMPLANT DATA REVIEWED: Yes RADIOLOGY DEPARTMENT: General X-ray: Exam(s) Completed: Chest X-Ray PERIPHERAL IV DATA: Not applicable SIGNED BY: RT Ronal(Avila) December 17, 2020 2:12 PM documented in this encounter[facility] note Future Appointments Appointment Date:10/24/2021 02:30:00 PM Scheduled Provider: Location:[facility] Appointment Type:MA Mammogram Screening Bilateral w/ Avinash Future Scheduled Tests Laboratory* Thyroid Stimulating Hormone 01/16/21 * Lipid Profile 01/16/21 * Complete Metabolic Panel 01/16/21 * COVID-19 Only (AO) 07/21/21 Radiology* MA Mammo Screening Bilateral w/ Avinash 10/24/21 * CT Abdomen and Pelvis w/ contrast 10/21/21 [facility] Evaluation + Plan note Future Appointments Appointment Date:03/09/2023 03:00:00 PM Scheduled Provider:TU HECTOR DO Location:[facility] Appointment Type:PC Wellness Medicare Future Scheduled Tests Laboratory* Thyroid Stimulating Hormone 07/03/22 * Thyroid Stimulating Hormone 12/23/22 * Lipid Profile 07/03/22 * Lipid Profile 12/23/22 * Hepatitis C Antibody IgG 07/03/22 * Hepatitis C Antibody IgG 12/23/22 * Complete Metabolic Panel 07/03/22 * Complete Metabolic Panel 12/23/22 Radiology* CT Low Dose Lung Cancer Screening (LDCT) 08/20/22 [facility] Evaluation + Plan note Future Appointments Appointment Date:07/06/2023 11:30:00 AM Scheduled Provider:TU HECTOR DO Location:[facility] Appointment Type:PC Wellness Medicare Future Scheduled Tests Laboratory* Thyroid Stimulating Hormone 07/03/22 * Thyroid Stimulating Hormone 12/23/22 * Lipid Profile 07/03/22 * Lipid Profile 12/23/22 * Hepatitis C Antibody IgG 07/03/22 * Hepatitis C Antibody IgG 12/23/22 * Complete Metabolic Panel 07/03/22 * Complete Metabolic Panel 12/23/22 Radiology* CT Low Dose Lung Cancer Screening (LDCT) 08/20/22 [facility] Evaluation + Plan note Future Appointments Appointment Date:02/02/2024 01:00:00 PM Scheduled Provider:TU HECTOR DO Location:[facility] Appointment Type:PC OV Future Scheduled Tests Laboratory* Thyroid Stimulating Hormone 09/29/23 * Lipid Profile 09/29/23 * Hepatitis C Antibody IgG 09/29/23 * Vitamin D Level 09/29/23 * Complete Metabolic Panel 09/29/23 Radiology* CT Low Dose Lung Cancer Screening (LDCT) 09/29/23 * MA Mammo Screening Bilateral w/ Avinash 09/29/23 [facility] evaluation + Plan note Future Appointments Appointment Date:02/02/2024 01:00:00 PM Scheduled Provider:TU HECTOR DO Location:[facility] Appointment Type: OV Future Scheduled Tests Laboratory* Thyroid Stimulating Hormone 09/29/23 * Lipid Profile 09/29/23 * Hepatitis C Antibody IgG 09/29/23 * Vitamin D Level 09/29/23 * Complete Metabolic Panel 09/29/23 Radiology* CT Low Dose Lung Cancer Screening (LDCT) 11/22/23 [facility] evaluation + Plan note Future Appointments Appointment Date:05/03/2024 01:30:00 PM Scheduled Provider:TU HECTOR DO Location:[facility] Appointment Type:PC OV Future Scheduled Tests Laboratory* Thyroid Stimulating Hormone 02/02/24 * Lipid Profile 02/02/24 * Hepatitis C Antibody IgG 02/02/24 * Vitamin D Level 02/02/24 * Complete Metabolic Panel 02/02/24 Radiology* CT Low Dose Lung Cancer Screening (LDCT) 11/22/23 [facility] evaluation + Plan note Future Appointments Appointment Date:02/22/2024 02:00:00 PM Scheduled Provider: Location:[facility] Appointment Type:VL - Venous US/Doppler One Leg (for DVT) Appointment Date:02/24/2024 02:00:00 PM Scheduled Provider:TU HECTOR DO Location:[facility] Appointment Type:PC OV ED Follow Up Appointment Date:05/03/2024 01:30:00 PM Scheduled Provider:TU HECTOR DO Location:[facility] Appointment Type:PC OV Future Scheduled Tests Laboratory* Thyroid Stimulating Hormone 02/02/24 * Lipid Profile 02/02/24 * Hepatitis C Antibody IgG 02/02/24 * Vitamin D Level 02/02/24 * Complete Metabolic Panel 02/02/24 Radiology* CT Low Dose Lung Cancer Screening (LDCT) 11/22/23 [facility] LC [email or web address] + Plan note Future Appointments Appointment Date:09/14/2024 11:30:00 AM Scheduled Provider:TU HECTOR DO Location:[facility] Appointment Type:PC OV Appointment Date:09/26/2024 01:30:00 PM Scheduled Provider:TU HECTOR DO Location:[facility] Appointment Type:PC Wellness Medicare Future Scheduled Tests Laboratory* Thyroid Stimulating Hormone 02/02/24 * Lipid Profile 02/02/24 * Hepatitis C Antibody IgG 02/02/24 * Vitamin D Level 02/02/24 * Complete Metabolic Panel 02/02/24 Radiology* CT Low Dose Lung Cancer Screening (LDCT) 11/22/23 * US Thyroid 09/13/24 [facility] GroovinA[employer]aluation + Plan note Future Appointments Appointment Date:09/26/2024 01:30:00 PM Scheduled Provider:TU HECTOR DO Location:[facility] Appointment Type:PC Wellness Medicare Future Scheduled Tests Laboratory* Basic Metabolic Panel 09/14/24 * Thyroid Stimulating Hormone 02/02/24 * Lipid Profile 09/14/24 * Lipid Profile 02/02/24 * Hepatitis C Antibody IgG 02/02/24 * Vitamin D Level 09/14/24 * Vitamin D Level 02/02/24 * Complete Metabolic Panel 02/02/24 Radiology* CT Low Dose Lung Cancer Screening (LDCT) 11/22/23 * US Thyroid 09/13/24 [facility] [employer] + Plan note Future Appointments Appointment Date:09/25/2024 03:00:00 PM Scheduled Provider: Location:[facility] Appointment Type:Echo - Echocardiogram Adult Appointment Date:09/26/2024 01:30:00 PM Scheduled Provider:TU HECTOR DO Location:[facility] Appointment Type:PC Wellness Medicare Future Scheduled Tests Laboratory* Basic Metabolic Panel 09/14/24 * Thyroid Stimulating Hormone 02/02/24 * Lipid Profile 09/14/24 * Lipid Profile 02/02/24 * Hepatitis C Antibody IgG 02/02/24 * Vitamin D Level 09/14/24 * Vitamin D Level 02/02/24 * Complete Metabolic Panel 02/02/24 Radiology* CT Low Dose Lung Cancer Screening (LDCT) 11/22/23 [facility] Evaluation note* Diagnosis Cat bite, initial encounter- Primary documented in this encounter [facility] note* Diagnosis Elbow mass, left- Primary documented in this encounter [facility] noteNo assessment information availableWCenterville Work Phone: Evaluation note* Diagnosis Cough Wheeze Wheezing documented in this encounter [facility] note* Diagnosis Cough documented in this encounter [facility] note* Diagnosis Infiltrate of lower lobe of left lung present on imaging study- Primary Acute cough documented in this encounter [facility] note* Diagnosis Acute cough documented in this encounter [facility] note* Diagnosis COPD with exacerbation (HCC)- Primary Obstructive chronic bronchitis with exacerbation URI, acute Acute upper respiratory infections of unspecified site documented in this encounter [facility] note* Diagnosis Pericardial effusion Unspecified disease of pericardium documented in this encounter [facility] note* Diagnosis Hilar mass- Primary Right atrial mass documented in this encounter [facility] note* Diagnosis Lung mass- Primary Swelling, mass, or lump in chest Pulmonary emphysema, unspecified emphysema type (HCC) Adenopathy Enlargement of lymph nodes Pericardial effusion Unspecified disease of pericardium Chronic obstructive pulmonary disease, unspecified COPD type (HCC) History of tobacco use Personal history of tobacco use, presenting hazards to health documented in this encounter [facility] note* Diagnosis Hilar mass Adenopathy Enlargement of lymph nodes Lung mass Swelling, mass, or lump in chest Hilar mass Adenopathy Enlargement of lymph nodes Lung mass Swelling, mass, or lump in chest Hilar mass Adenopathy Enlargement of lymph nodes Lung mass Swelling, mass, or lump in chest documented in this encounter [facility] note* Diagnosis Hilar mass Adenopathy Enlargement of lymph nodes Lung mass Swelling, mass, or lump in chest Pleural effusion- Primary Unspecified pleural effusion Pleural effusion Unspecified pleural effusion Lung mass Swelling, mass, or lump in chest Hilar mass Adenopathy Enlargement of lymph nodes Lung mass Swelling, mass, or lump in chest [facility] [place] [facility]* Diagnosis Hilar mass Adenopathy Enlargement of lymph nodes Lung mass Swelling, mass, or lump in chest documented [facility] [place] [facility]* Diagnosis Small cell carcinoma of left lung, unspecified part of lung (HCC)- Primary Chronic obstructive pulmonary disease, unspecified COPD type (HCC) 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 note* Diagnosis Malignant small cell cancer (CMS/HCC) (HCC)- Primary documented in this encounter [facility] note* Diagnosis Malignant small cell cancer (CMS/HCC) (HCC)- Primary Adenopathy Enlargement of lymph nodes Right atrial mass Pleural effusion Unspecified pleural effusion documented in this encounter [facility] note* Diagnosis Malignant small cell cancer (CMS/HCC) (HCC)- Primary [facility] Narrative No data available for this section [facility] Hospital Discharge instructions No data available for this section [facility] Hospital Discharge instructions Additional Instructions Please make sure he elevate, take off your rings. Take the clindamycin stop taking the other antibiotic. Will take the clindamycin 3 times a day for 1 week. Return for any worsening symptoms.[facility] Work Phone: Hospital Discharge instructions* Attachments The following attachments cannot be sent through Care Everywhere. * General Anesthesia Discharge Instructions (Bolivian) * Endobronchial Ultrasound (Bolivian) documented [facility] instructions Additional Instructions Avoid taking your hydrochlorothiazide for your high blood pressure over the next few days. You might want to start at taking half the dose of 12.5 mg if your blood pressure starts to elevate above 140 systolic. Drink 20 of oral fluids. Return with sustained low blood pressure, new or worsening symptoms. Wear your oxygen as previously directed. Follow-up with your oncologist.[facility] Work Phone: Progress note No data available for this section [facility] Reason for referral (narrative)No reason for referral information availableWCenterville Work Phone: Reason for visit Narrative* Auth/Cert (Routine) Specialty Diagnoses / Procedures Referred By Jeffery t Referred To Contact Diagnoses Pleural effusion Hypoxia, lung cancer Procedures . Sushila Tam MD [address] [place] [address] Phone: tel: fax: [facility] Cardiac Post Intervention [facility] Unit [facility] PCU [address] [place] [address] Phone: tel: Referral ID Status Reason Start Date Expiration Date Visits Re quested Visits Authorized [id number] 1 1 [facility] [employer] for visit Narrative* Auth/Cert (Routine) Specialty Diagnoses / Procedures Referred By Jeffery t Referred To Contact Diagnoses Hilar mass Adenopathy Lung mass Procedures [place] [facility] EBUS GUIDED SAMPL 3/> NODE STATION/STRUX ENDOBRONCHIAL ULTRASOUND WITH TRANSBRONCHIAL NEEDLE ASPIRATION. POSSIBLE ENDOBRONCHIAL BIOPSIES, NEEDLE ASPIRATION, AND BRUSHINGS. Cain Mejia MD [address] [place] [address] [address] [place] [address] Phone: tel: fax: [facility] Endoscopy [address] [place] [address] Phone: tel: Referral ID Status Reason Start Date Expiration Date Visits Re quested Visits Authorized [id number] 1 1 [employer] for visit Narrative* Imaging (Routine) - Closed Specialty Diagnoses / Procedures Referred By Contac t Referred To Contact Radiology Diagnoses Pleural mass Procedures MR brain w and wo Silvio James MD [address] [facility], [address] [place] [address] Phone: tel: fax: Referral ID Status Reason Start Date Expiration Date Visits Re quested Visits Authorized [id number] Closed 10/03/2024 10/03/2025 1 1 [facility]* Imaging (Routine) - Closed Specialty Diagnoses / Procedures Referred By Jeffery langston Referred To Contact Radiology Diagnoses Pleural mass Procedures PET/CT skull base to mid thigh Silvio Fortune MD [address] [place] [address], [address] [place] [address] Phone: tel: fax: Referral ID Status Reason Start Date Expiration Date Visits Re quested Visits Authorized [id number] Closed 10/03/2024 10/03/2025 1 1 [facility] Chief Complaint and Reason for Visit Chief Complaint cat bite Chief Complaint cat bite RIGHT KNEE,BILATERAL HIPS Chief Complaint Admit Date SOB June 20, 2024 8 :54am sob September 13, 2024 4:24pm Lung Mass September 18, 2024 12:3 5pm REVIEW BX September 18, 2024 2:02 pm H&P for lung biopsy September 22, 2024 8:56 am INT LAB ORDERS September 22, 2024 9:58 am R06.02 - Shortness of breath September 25, 2024 9:03am 6 minute walk test September 28, 2024 9:3 4am Reason for Visit Admit Date Mediastinal lymphadenopathy September 18, 025 12:35pm Lung mass September 18, 2024 12:3 5pm Mediastinal lymphadenopathy September 22 8:56am Shortness of breath September 22, 2024 8:56 am Shortness of breath September 28, 2024 9:3 4am Chief Complaint Admit Date SOB June 20, 2024 8 :54am sob September 13, 2024 4:24pm Lung Mass September 18, 2024 12:3 5pm REVIEW BX September 18, 2024 2:02 pm H&P for lung biopsy September 22, 2024 8:56 am INT LAB ORDERS September 22, 2024 9:58 am R06.02 - Shortness of breath September 25, 2024 9:03am 6 minute walk test September 28, 2024 9:3 4am SOB October 05, 2024 1:5 1pm Chief Complaint Admit Date SOB June 20, 2024 8 :54am sob September 13, 2024 4:24pm Lung Mass September 18, 2024 12:3 5pm REVIEW BX September 18, 2024 2:02 pm H&P for lung biopsy September 22, 2024 8:56 am INT LAB ORDERS September 22, 2024 9:58 am R06.02 - Shortness of breath September 25, 2024 9:03am 6 minute walk test September 28, 2024 9:3 4am SOB October 05, 2024 1:5 1pm THYROID NODULE *URGENT* October 10, 2024 9:08am Chief Complaint Admit Date sob September 13, 2024 4:24pm Lung Mass September 18, 2024 12:3 5pm REVIEW BX September 18, 2024 2:02 pm H&P for lung biopsy September 22, 2024 8:56 am INT LAB ORDERS September 22, 2024 9:58 am R06.02 - Shortness of breath September 25, 2024 9:03am 6 minute walk test September 28, 2024 9:3 4am SOB October 05, 2024 1:5 1pm THYROID NODULE *URGENT* October 10, 2024 9:08am sob October 21, 2024 3:05 pm Chief Complaint Admit Date sob September 13, 2024 4:24pm Lung Mass September 18, 2024 12:3 5pm H&P for lung biopsy September 22, 2024 8:56 am INT LAB ORDERS September 22, 2024 9:58 am R06.02 - Shortness of breath September 25, 2024 9:03am 6 minute walk test September 28, 2024 9:3 4am SOB October 05, 2024 1:5 1pm THYROID NODULE *URGENT* October 10, 2024 9:08am sob October 21, 2024 3:05 pm REVIEW BX October 25, 2024 2:36 pm CHEMO ED October 26, 2024 3:4 6pm PORT PLACEMENT October 27, 2024 12: 39pm 1WK LABS NEW START October 31, 2024 7:1 6am 1 WK - LABS November 09, 2024 8:3 2am Insertion, Vascular Port November 16, 2024 1 1:34am Insertion, Vascular Port November 16, 2024 1 :16pm ESTABLISH (SELF) November 17, 2024 11:23a m 3 WKS - LABS - CARBO/ETOP/DURVA November 21, 2024 8:07am REVIEW BX December 12, 2024 8:00a m 3 WKS - LABS - CARBO/ETOP/DURVA November 8:07am Reason for Visit Admit Date Mediastinal lymphadenopathy September 18, 025 12:35pm Lung mass September 18, 2024 12:3 5pm Mediastinal lymphadenopathy September 22 025 8:56am Shortness of breath September 22, 2024 8:56 am Shortness of breath September 28, 2024 9:3 4am Small cell carcinoma of left lung October 25, 2024 2:36pm Encounter for education October 26, 2024 3:46pm Metastasis to adrenal gland October 26, 2024 3:46pm Metastasis to liver October 26, 2024 3:4 6pm Small cell carcinoma of left lung October 26, 2024 3:46pm Encounter for insertion of venous access port October 27, 2024 12:39pm Encounter for antineoplastic immunothera py October 31, 2024 7:16am Encounter for chemotherapy management Ap ril 2024 7:16am Metastasis to adrenal gland October 31, 2024 7:16am Metastasis to liver October 31, 2024 7:1 6am Small cell carcinoma of left lung October 31, 2024 7:16am Hypokalemia November 09, 2024 8:3 2am Metastasis to adrenal gland November 09, 2024 8:32am Metastasis to liver November 09, 2024 8:3 2am Small cell carcinoma of left lung November 09, 2024 8:32am Pericardial effusion November 17, 2024 11:23 am Right atrial mass November 17, 2024 11:23a m Small cell lung cancer November 17, 2024 11: 23am Mediastinal lymphadenopathy November 21 8:07am Mediastinal lymphadenopathy December 12 8:07am Chief Complaint Admit Date sob September 13, 2024 4:24pm Lung Mass September 18, 2024 12:3 5pm H&P for lung biopsy September 22, 2024 8:56 am INT LAB ORDERS September 22, 2024 9:58 am R06.02 - Shortness of breath September 25, 2024 9:03am 6 minute walk test September 28, 2024 9:3 4am SOB October 05, 2024 1:5 1pm THYROID NODULE *URGENT* October 10, 2024 9:08am sob October 21, 2024 3:05 pm REVIEW BX October 25, 2024 2:36 pm CHEMO ED October 26, 2024 3:4 6pm PORT PLACEMENT October 27, 2024 12: 39pm 1[facility] LABS NEW START October 31, 2024 7:1 6am 1 WK - LABS November 09, 2024 8:3 2am Insertion, Vascular Port November 16, 2024 1 1:34am Insertion, Vascular Port November 16, 2024 1 :16pm ESTABLISH (SELF) November 17, 2024 11:23a m 3 WKS - LABS - CARBO/ETOP/DURVA November 21, 2024 8:07am 3 WKS - LABS - CARBO/ETOP/DURVA November 8:07am 3 WKS - LABS - CARBO/ETOP/DURVA December 9:04am REVIEW BX January 02, 2025 9:15 am Reason for Visit Admit Date Mediastinal lymphadenopathy September 18, 025 12:35pm Lung mass September 18, 2024 12:3 5pm Mediastinal lymphadenopathy September 22 025 8:56am Shortness of breath September 22, 2024 8:56 am Shortness of breath September 28, 2024 9:3 4am Small cell carcinoma of left lung October 25, 2024 2:36pm Encounter for education October 26, 2024 3:46pm Metastasis to adrenal gland October 26, 2024 3:46pm Metastasis to liver October 26, 2024 3:4 6pm Small cell carcinoma of left lung October 26, 2024 3:46pm Encounter for insertion of venous access port October 27, 2024 12:39pm Encounter for antineoplastic immunothera py October 31, 2024 7:16am Encounter for chemotherapy management Ap ril 2024 7:16am Metastasis to adrenal gland October 31, 2024 7:16am Metastasis to liver October 31, 2024 7:1 6am Small cell carcinoma of left lung October 31, 2024 7:16am Hypokalemia November 09, 2024 8:3 2am Metastasis to adrenal gland November 09, 2024 8:32am Metastasis to liver November 09, 2024 8:3 2am Small cell carcinoma of left lung November 09, 2024 8:32am Pericardial effusion November 17, 2024 11:23 am Right atrial mass November 17, 2024 11:23a m Small cell lung cancer November 17, 2024 11: 23am Mediastinal lymphadenopathy November 21 8:07am Constipation December 12, 2024 8:07a m Delayed surgical wound healing December 12, 2024 8:07am Encounter for antineoplastic immunothera py December 12, 2024 8:07am Encounter for chemotherapy management Ma y 2024 8:07am Mediastinal lymphadenopathy December 12 8:07am Metastasis to adrenal gland December 12 8:07am Metastasis to liver December 12, 2024 8:07a m Small cell lung cancer December 12, 2024 8: 07am Mediastinal lymphadenopathy January 02, 2 025 9:04am Chief Complaint Admit Date R06.02 - Shortness of breath September 25, 2024 9:03am R06.02 - Shortness of breath September 25, 2024 9:11am 6 minute walk test September 28, 2024 9:3 4am SOB October 05, 2024 1:5 1pm THYROID NODULE *URGENT* October 10, 2024 9:08am sob October 21, 2024 3:05 pm REVIEW BX October 25, 2024 2:36 pm CHEMO ED October 26, 2024 3:4 6pm PORT PLACEMENT October 27, 2024 12: 39pm 1[facility] LABS NEW START October 31, 2024 7:1 6am 1 WK - LABS November 09, 2024 8:3 2am Insertion, Vascular Port November 16, 2024 1 1:34am Insertion, Vascular Port November 16, 2024 1 :16pm ESTABLISH (SELF) November 17, 2024 11:23a m 3 WKS - LABS - CARBO/ETOP/DURVA November 21, 2024 8:07am 3 WKS - LABS - CARBO/ETOP/DURVA November 8:07am 3 WKS - LABS - CARBO/ETOP/DURVA December 9:04am REVIEW BX January 04, 2025 1:00 pm Malignant neoplasm of left main bronchus January 16, 2025 7:49am Reason for Visit Admit Date Shortness of breath September 28, 2024 9:3 4am Small cell carcinoma of left lung October 25, 2024 2:36pm Encounter for education October 26, 2024 3:46pm Metastasis to adrenal gland October 26, 2024 3:46pm Metastasis to liver October 26, 2024 3:4 6pm Small cell carcinoma of left lung October 26, 2024 3:46pm Encounter for insertion of venous access port October 27, 2024 12:39pm Encounter for antineoplastic immunothera py October 31, 2024 7:16am Encounter for chemotherapy management Ap ril 2024 7:16am Metastasis to adrenal gland October 31, 2024 7:16am Metastasis to liver October 31, 2024 7:1 6am Small cell carcinoma of left lung October 31, 2024 7:16am Hypokalemia November 09, 2024 8:3 2am Metastasis to adrenal gland November 09, 2024 8:32am Metastasis to liver November 09, 2024 8:3 2am Small cell carcinoma of left lung November 09, 2024 8:32am Pericardial effusion November 17, 2024 11:23 am Right atrial mass November 17, 2024 11:23a m Small cell lung cancer November 17, 2024 11: 23am Mediastinal lymphadenopathy November 21 8:07am Constipation December 12, 2024 8:07a m Delayed surgical wound healing December 12, 2024 8:07am Encounter for antineoplastic immunothera py December 12, 2024 8:07am Encounter for chemotherapy management Ma y 2024 8:07am Mediastinal lymphadenopathy December 12 8:07am Metastasis to adrenal gland December 12 8:07am Metastasis to liver December 12, 2024 8:07a m Small cell lung cancer December 12, 2024 8: 07am Mediastinal lymphadenopathy January 02, 2 025 9:04am Chief Complaint Admit Date R06.02 - Shortness of breath September 25, 2024 9:03am R06.02 - Shortness of breath September 25, 2024 9:11am 6 minute walk test September 28, 2024 9:3 4am SOB October 05, 2024 1:5 1pm THYROID NODULE *URGENT* October 10, 2024 9:08am sob October 21, 2024 3:05 pm REVIEW BX October 25, 2024 2:36 pm CHEMO ED October 26, 2024 3:4 6pm PORT PLACEMENT October 27, 2024 12: 39pm 1[facility] LABS NEW START October 31, 2024 7:1 6am 1 WK - LABS November 09, 2024 8:3 2am Insertion, Vascular Port November 16, 2024 1 1:34am Insertion, Vascular Port November 16, 2024 1 :16pm ESTABLISH (SELF) November 17, 2024 11:23a m 3 WKS - LABS - CARBO/ETOP/DURVA November 21, 2024 8:07am 3 WKS - LABS - CARBO/ETOP/DURVA November 8:07am 3 WKS - LABS - CARBO/ETOP/DURVA December 9:04am Malignant neoplasm of left main bronchus January 16, 2025 7:49am 3 WKS - LABS - ETOP/CARBO/DURVA - REVIEW SCANS January 23, 2025 9:03am maint Imfinzi January 23, 2025 9:15a m Reason for Visit Admit Date Shortness of breath September 28, 2024 9:3 4am Small cell carcinoma of left lung October 25, 2024 2:36pm Encounter for education October 26, 2024 3:46pm Metastasis to adrenal gland October 26, 2024 3:46pm Metastasis to liver October 26, 2024 3:4 6pm Small cell carcinoma of left lung October 26, 2024 3:46pm Encounter for insertion of venous access port October 27, 2024 12:39pm Encounter for antineoplastic immunothera py October 31, 2024 7:16am Encounter for chemotherapy management Ap ril 2024 7:16am Metastasis to adrenal gland October 31, 2024 7:16am Metastasis to liver October 31, 2024 7:1 6am Small cell carcinoma of left lung October 31, 2024 7:16am Hypokalemia November 09, 2024 8:3 2am Metastasis to adrenal gland November 09, 2024 8:32am Metastasis to liver November 09, 2024 8:3 2am Small cell carcinoma of left lung November 09, 2024 8:32am Pericardial effusion November 17, 2024 11:23 am Right atrial mass November 17, 2024 11:23a m Small cell lung cancer November 17, 2024 11: 23am Mediastinal lymphadenopathy November 21 8:07am Constipation December 12, 2024 8:07a m Delayed surgical wound healing December 12, 2024 8:07am Encounter for antineoplastic immunothera py December 12, 2024 8:07am Encounter for chemotherapy management Ma y 2024 8:07am Mediastinal lymphadenopathy December 12 8:07am Metastasis to adrenal gland December 12 8:07am Metastasis to liver December 12, 2024 8:07a m Small cell lung cancer December 12, 2024 8: 07am Mediastinal lymphadenopathy January 02 9:04am Mediastinal lymphadenopathy January 23 9:03am Advance Directives No Advanced Directives Records Found Advance Directive Response Recorded Date/ Time Living Will No July 13 5:39pm Power of Environmental Sustainability Manager No July 13, 2023 5:39pm Advance Directive Response Recorded Date/ Time Living Will No July 13 6:39pm Power of Environmental Sustainability Manager No July 13, 2023 6:39pm Date Activated Date Inactivated Comments 10/05/2024 8:10 PM Date Activated Date Inactivated Comments 10/05/2024 10:16 PM 10/06/2024 7:49 PM Date Activated Date Inactivated Comments 10/05/2024 8:10 PM 10/05/2024 10:16 PM Advance Directive Response Recorded Date/ Time Living Will No June 20 9:59am Do you have a Healthcare Power of Environmental Sustainability Manager? No June 20, 2024 9:59am Living Will Yes September 13 7:47pm Do you have a Healthcare Power of Environmental Sustainability Manager? Yes September 13, 2024 7:47pm Name of Medical Power of Environmental Sustainability Manager Andrew September 13, 2024 7:47pm Advance Directive Response Recorded Date/ Time Living Will Yes October 05, 2024 2:07pm Do you have a Healthcare Power of Environmental Sustainability Manager? Yes October 05, 2024 2:07pm Name of Medical Power of Environmental Sustainability Manager Diaz Cordova October 05, 2024 2:07pm Living Will No June 20 9:59am Do you have a Healthcare Power of Environmental Sustainability Manager? No June 20, 2024 9:59am Living Will Yes September 13 7:47pm Do you have a Healthcare Power of Environmental Sustainability Manager? Yes September 13, 2024 7:47pm Name of Medical Power of Environmental Sustainability Manager Andrew September 13, 2024 7:47pm Date Activated Date Inactivated Comments 10/05/2024 10:16 PM 10/06/2024 7:49 PM Date Activated Date Inactivated Comments 10/05/2024 8:10 PM 10/05/2024 10:16 PM Advance Directive Response Recorded Date/ Time Living Will Yes October 05, 2024 2:07pm Do you have a Healthcare Power of Environmental Sustainability Manager? Yes October 05, 2024 2:07pm Name of Medical Power of Environmental Sustainability Manager Diaz Cordova October 05, 2024 2:07pm Living Will Yes October 21, 2024 3:05pm Do you have a Healthcare Power of Environmental Sustainability Manager? Yes October 21, 2024 3:05pm Name of Medical Power of Environmental Sustainability Manager Catherine Cordova October 21, 2024 3:05pm Living Will Yes September 13, 025 7:47pm Do you have a Healthcare Power of Environmental Sustainability Manager? Yes September 13, 2024 7:47pm Name of Medical Power of Environmental Sustainability Manager Andrew September 13, 2024 7:47pm Advance Directive Response Recorded Date/ Time Advance Directives on File No November 232024 1:18pm Living Will Yes November 23, 2024 1: 18pm Do you have a Healthcare Pow er of Environmental Sustainability Manager? Yes November 23, 2024 1:18pm Name of Medical Power of Environmental Sustainability Manager Diaz Cordova - daughter and Ran Dozier - son November 23, 2024 1:18pm Advance Directives Yes November 23, 2024 1:18pm Living Will Yes October 05, 2024 2:07pm Do you have a Healthcare Pow er of Environmental Sustainability Manager? Yes October 05, 2024 2:07pm Name of Medical Power of Environmental Sustainability Manager Diaz Cordova October 05, 2024 2:07pm Living Will Yes October 21, 2024 3:05pm Do you have a Healthcare Pow er of Environmental Sustainability Manager? Yes October 21, 2024 3:05pm Name of Medical Power of Environmental Sustainability Manager Catherine Cordova October 21, 2024 3:05pm Living Will Yes September 13, 2 025 7:47pm Do you have a Healthcare Pow er of Environmental Sustainability Manager? Yes September 13, 2024 7:47pm Name of Medical Power of Environmental Sustainability Manager Andrew September 13, 2024 7:47pm Living Will Yes November 03, 2024 2:04pm Do you have a Healthcare Pow er of Environmental Sustainability Manager? Yes November 03, 2024 2:04pm Name of Medical Power of Environmental Sustainability Manager DIAZ CORDOAV November 03, 2024 2:04pm Advance Directive Response Recorded Date/ Time Advance Directives on File No January 02, 2025 9:21am Living Will Yes January 02, 2025 9:21am Do you have a Healthcare Pow er of Environmental Sustainability Manager? Yes January 02, 2025 9:21am Name of Medical Power of Environmental Sustainability Manager Diaz Cordova - daughter and Ran Dozier - son January 02, 2025 9:21am Advance Directives Yes January 02 9:21am Living Will Yes October 05, 2024 2:07pm Do you have a Healthcare Pow er of Environmental Sustainability Manager? Yes October 05, 2024 2:07pm Name of Medical Power of Environmental Sustainability Manager Diaz Cordova October 05, 2024 2:07pm Living Will Yes October 21, 2024 3:05pm Do you have a Healthcare Pow er of Environmental Sustainability Manager? Yes October 21, 2024 3:05pm Name of Medical Power of Environmental Sustainability Manager Catherine Cordova October 21, 2024 3:05pm Living Will Yes September 13 7:47pm Do you have a Healthcare Pow er of Environmental Sustainability Manager? Yes September 13, 2024 7:47pm Name of Medical Power of Environmental Sustainability Manager Andrew September 13, 2024 7:47pm Living Will Yes November 03, 2024 2:04pm Do you have a Healthcare Pow er of Environmental Sustainability Manager? Yes November 03, 2024 2:04pm Name of Medical Power of Environmental Sustainability Manager DIAZ CORDOVA November 03, 2024 2:04pm Advance Directive Response Recorded Date/ Time Advance Directives on File No January 04, 2025 12:59pm Living Will Yes January 04, 2025 12:59pm Do you have a Healthcare Pow er of Environmental Sustainability Manager? Yes January 04, 2025 12:59pm Name of Medical Power of Environmental Sustainability Manager Diaz Cordova - daughter and Ran Dozier - son January 04, 2025 12:59pm Advance Directives Yes January 04 12:59pm Living Will Yes October 05, 2024 2:07pm Do you have a Healthcare Pow er of Environmental Sustainability Manager? Yes October 05, 2024 2:07pm Name of Medical Power of Environmental Sustainability Manager Diaz Cordova October 05, 2024 2:07pm Living Will Yes October 21, 2024 3:05pm Do you have a Healthcare Pow er of Environmental Sustainability Manager? Yes October 21, 2024 3:05pm Name of Medical Power of Environmental Sustainability Manager Catherine Cordova October 21, 2024 3:05pm Living Will Yes November 03, 2024 2:04pm Do you have a Healthcare Pow er of Environmental Sustainability Manager? Yes November 03, 2024 2:04pm Name of Medical Power of Environmental Sustainability Manager IDAZ CORDOVA November 03, 2024 2:04pm Summary Purpose Family History Relationship Condition Age at Onset Recorded Date/T chau mother Leukemia Unknown Osteoporosis Unknown Disorder of thyroid Unknown grandfather Malignant neoplasm of brain Unknown father Disorder of respiratory system Unknown brother Cardiac disease Unknown Relationship Condition Age at Onset Recorded Date/T chau mother Leukemia Unknown grandfather Malignant neoplasm of brain Unknown father Disorder of respiratory system Unknown No Family History Records Found Additional Source Comments Care Team (unrecognized sect ion and content) Crisis Nurse Relationship Specialty Start Date End Date Tu Hector DO [address] [place] [address] PCP - General Family Medicine 01/12/23 Crisis Nurse Relationship Specialty Start Date End Date Tu Hector DO [address] [place] [address] PCP - General Family Medicine 01/12/23 Crisis Nurse Relationship Specialty Start Date End Date Tu Hector DO [address] [place] [address] PCP - General Family Medicine 01/12/23 Team Status: Active Member Role Status Dates Wesley Be MD Family Provider Active Dr. Tu Hector , DO Primary Care Provider Active Team Status: Inactive Member Role Status Dates Dr. Tu Hector , Primary Care Provider Active Dr. Chris Maria MD Emergency Provider Active Team Status: Inactive Member Role Status Dates Dr. Tu Hector DO Primary Care Provider Active Dr. Chris Maria MD Attending Provider, Emergency Pro vider Active Team Status: Inactive Member Role Status Dates Dr. Tu Hector DO Primary Care Provider Active HOSPICE COORDINATOR. Shweta Lew Attending Provider, Referring Provid er Active Crisis Nurse Relationship Specialty Start Date End Date Tu Hector DO [address] [place] [address] PCP - General Family Medicine 01/12/23 Crisis Nurse Relationship Specialty Start Date End Date Tu Hector DO [address] [place] [address] PCP - General Family Medicine 01/12/23 Crisis Nurse Relationship Specialty Start Date End Date Tu Hector DO [address] [place] [id number] PCP - General Family Medicine 01/12/23 Crisis Nurse Relationship Specialty Start Date End Date Tu Hector DO [address] [place] [id number] PCP - General Family Medicine 01/12/23 Crisis Nurse Relationship Specialty Start Date End Date Tu Hector DO [address] [place] [id number] PCP - General Family Medicine 01/12/23 Crisis Nurse Relationship Specialty Start Date End Date Tu Hector DO [address] [place] [id number] PCP - General Family Medicine 01/12/23 Team Status: Active Member Role Status Dates Dr. Tu Hector DO Primary Care Provider Active Team Status: Inactive Member Role Status Dates Dr. Tu Hector DO Primary Care Provider Active Start: June 20, 2024 End: June 20, 2024 Dr. Anh Irene DO Attending Provider Active S tart: June 20, 2024 End: June 20, 2024 Dr. Anh Irene DO Emergency Provider Active S tart: June 20, 2024 End: June 20, 2024 Team Status: Inactive Member Role Status Dates Dr. Tu Hector DO Primary Care Provider Active Start: September 13, 2024 End: September 14, 2024 Dr. Chris Maria MD Attending Provider Active S tart: September 13, 2024 End: September 14, 2024 Dr. Chris Maria MD Emergency Provider Active S tart: September 13, 2024 End: September 14, 2024 Team Status: Inactive Member Role Status Dates Dr. Tu Hector DO Primary Care Provider Active Start: September 18, 2024 End: September 18, 2024 Dr. Chris Maria MD Referring Provider Active S tart: September 18, 2024 End: September 18, 2024 Dr. Alis Chance MD Attending Provider Active Start: September 18, 2024 End: September 18, 2024 Team Status: Active Member Role Status Dates Dr. Tu Hector DO Primary Care Provider Active Start: September 18, 2024 Dr. Alis Chance MD Attending Provider Active Start: September 18, 2024 Dr. Alis Chance MD Referring Provider Active Start: September 18, 2024 Team Status: Inactive Member Role Status Dates Dr. Tu Hector DO Primary Care Provider Active Start: September 22, 2024 End: September 22, 2024 Dr. Tu Hector DO Referring Provider Active Start: September 22, 2024 End: September 22, 2024 Rhiannon Georges HOSPICE COORDINATOR, HOSPICE COORDINATOR-C Attending Provider Active Start: September 22, 2024 End: September 22, 2024 Team Status: Inactive Member Role Status Dates Dr. Tu Hector DO Primary Care Provider Active Start: September 22, 2024 End: September 22, 2024 Rhiannon Georges NP, HOSPICE COORDINATOR-C Attending Provider Active Start: September 22, 2024 End: September 22, 2024 Rhiannon Georges HOSPICE COORDINATOR, HOSPICE COORDINATOR-C Referring Provider Active Start: September 22, 2024 End: September 22, 2024 Team Status: Active Member Role Status Dates Dr. Tu Hector DO Primary Care Provider Active Start: September 25, 2024 Rhiannon Georges HOSPICE COORDINATOR, HOSPICE COORDINATOR-C Attending Provider Active Start: September 25, 2024 Rhiannon Georges HOSPICE COORDINATOR, HOSPICE COORDINATOR-C Referring Provider Active Start: September 25, 2024 Team Status: Inactive Member Role Status Dates Dr. Tu Hector DO Primary Care Provider Active Start: September 28, 2024 End: September 28, 2024 Dr. Tu Hector DO Referring Provider Active Start: September 28, 2024 End: September 28, 2024 Rhiannon Georges HOSPICE COORDINATOR, HOSPICE COORDINATOR-C Attending Provider Active Start: September 28, 2024 End: September 28, 2024 Team Status: Inactive Member Role Status Dates Dr. Tu Hector DO Primary Care Provider Active Start: September 25, 2024 End: September 25, 2024 Rhiannon Georges HOSPICE COORDINATOR, HOSPICE COORDINATOR-C Attending Provider Active Start: September 25, 2024 End: September 25, 2024 Rhiannon Georges HOSPICE COORDINATOR, HOSPICE COORDINATOR-C Referring Provider Active Start: September 25, 2024 End: September 25, 2024 Team Status: Inactive Member Role Status Dates Dr. Tu Hector DO Primary Care Provider Active Start: October 05, 2024 End: October 05, 2024 Dr. Marty Woods DO Emergency Provider Active Start: October 05, 2024 End: October 05, 2024 Team Status: Inactive Member Role Status Dates Dr. Tu Hector DO Primary Care Provider Active Start: October 05, 2024 End: October 05, 2024 Dr. Marty Woods DO Attending Provider Active Start: October 05, 2024 End: October 05, 2024 Dr. Marty Woods DO Emergency Provider Active Start: October 05, 2024 End: October 05, 2024 Team Status: Inactive Member Role Status Dates Dr. Tu Hector DO Primary Care Provider Active Start: October 10, 2024 End: October 10, 2024 Dr. Tu Hector DO Attending Provider Active Start: October 10, 2024 End: October 10, 2024 Dr. Tu Hector DO Referring Provider Active Start: October 10, 2024 End: October 10, 2024 Crisis Nurse Relationship Specialty Start Date End Date Tu Hector DO [address] [place] [address] PCP - General Family Medicine 01/12/23 Crisis Nurse Relationship Specialty Start Date End Date Tu Hector DO [address] [place] [id number] PCP - General Family Medicine 01/12/23 Crisis Nurse Relationship Specialty Start Date End Date Tu Hector DO [address] [place] [id number] PCP - General Family Medicine 01/12/23 Crisis Nurse Relationship Specialty Start Date End Date Tu Hector DO [address] [place] [id number] PCP - General Family Medicine 01/12/23 Crisis Nurse Relationship Specialty Start Date End Date Tu Hector DO [address] [place] [id number] PCP - General Family Medicine 01/12/23 Team Status: Inactive Member Role Status Dates Dr. Tu Hector DO Primary Care Provider Active Start: October 21, 2024 End: October 21, 2024 Tay Dumont MD Emergency Provider Active Star t: October 21, 2024 End: October 21, 2024 Crisis Nurse Relationship Specialty Start Date End Date Tu Hector DO [address] [place] [id number] PCP - General Family Medicine 01/12/23 Crisis Nurse Relationship Specialty Start Date End Date Tu Hector DO [address] [place] [address] PCP - General Family Medicine 01/12/23 Crisis Nurse Relationship Specialty Start Date End Date Tu Hector DO [address] [place] [address] PCP - General Family Medicine 01/12/23 Crisis Nurse Relationship Specialty Start Date End Date Tu Hector DO [address] [place] [address] PCP - General Family Medicine 01/12/23 Crisis Nurse Relationship Specialty Start Date End Date Tu Hector DO [address] [place] [address] PCP - General Family Medicine 01/12/23 Team Status: Inactive Member Role Status Dates Dr. Tu Hector DO Primary Care Provider Active Start: October 21, 2024 End: October 21, 2024 Tay Dumont MD Attending Provider Active Star t: October 21, 2024 End: October 21, 2024 Tay Dumont MD Emergency Provider Active Star t: October 21, 2024 End: October 21, 2024 Team Status: Inactive Member Role Status Dates Dr. Tu Hector DO Primary Care Provider Active Start: October 25, 2024 End: October 25, 2024 Dr. Tu Hector DO Referring Provider Active Start: October 25, 2024 End: October 25, 2024 Dr. Wilfrido Karimi MD Attending Provider Active S tart: October 25, 2024 End: October 25, 2024 Team Status: Inactive Member Role Status Dates Dr. Tu Hector DO Primary Care Provider Active Start: October 26, 2024 End: October 26, 2024 Dr. Tu Hector DO Referring Provider Active Start: October 26, 2024 End: October 26, 2024 Anayeli Win HOSPICE COORDINATOR, HOSPICE COORDINATOR-C Attending Provider Active Start: October 26, 2024 End: October 26, 2024 Team Status: Inactive Member Role Status Dates Dr. Tu Hector DO Primary Care Provider Active Start: October 27, 2024 End: October 27, 2024 Dr. Tu Hector DO Referring Provider Active Start: October 27, 2024 End: October 27, 2024 Dr. Omar Hicks MD Attending Provider Active Start: October 27, 2024 End: October 27, 2024 Team Status: Inactive Member Role Status Dates Dr. Tu Hector DO Primary Care Provider Active Start: October 31, 2024 End: October 31, 2024 Dr. Tu Hector DO Referring Provider Active Start: October 31, 2024 End: October 31, 2024 Anayeli Win HOSPICE COORDINATOR, HOSPICE COORDINATOR-C Attending Provider Active Start: October 31, 2024 End: October 31, 2024 Team Status: Inactive Member Role Status Dates Dr. Tu Hector DO Primary Care Provider Active Start: November 09, 2024 End: November 09, 2024 Dr. Tu Hector DO Referring Provider Active Start: November 09, 2024 End: November 09, 2024 Anayeli Win HOSPICE COORDINATOR, HOSPICE COORDINATOR-C Attending Provider Active Start: November 09, 2024 End: November 09, 2024 Team Status: Inactive Member Role Status Dates Dr. Tu Hector DO Primary Care Provider Active Start: November 16, 2024 End: November 16, 2024 Dr. Omar Hicks MD Attending Provider Active Start: November 16, 2024 End: November 16, 2024 Dr. Omar Hicks MD Referring Provider Active Start: November 16, 2024 End: November 16, 2024 Team Status: Active Member Role Status Dates Dr. Tu Hector DO Primary Care Provider Active Start: November 16, 2024 Dr. Omar Hicks MD Attending Provider Active Start: November 16, 2024 Dr. Omar Hicks MD Referring Provider Active Start: November 16, 2024 Dr. Omar Hicks MD Other Provider Active Start: November 16, 2024 Team Status: Inactive Member Role Status Dates Dr. Tu Hector DO Primary Care Provider Active Start: November 17, 2024 End: November 17, 2024 Dr. Tu Hector DO Referring Provider Active Start: November 17, 2024 End: November 17, 2024 Dr. Kilo Morse MD Attending Provider Active Start: November 17, 2024 End: November 17, 2024 Team Status: Inactive Member Role Status Dates Dr. Tu Hector DO Primary Care Provider Active Start: November 21, 2024 End: November 21, 2024 Dr. Tu Hector DO Referring Provider Active Start: November 21, 2024 End: November 21, 2024 Dr. Alis Chance MD Attending Provider Active Start: November 21, 2024 End: November 21, 2024 Team Status: Active Member Role Status Dates Dr. Tu Hector DO Primary Care Provider Active Start: December 12, 2024 Dr. Alis Chance MD Attending Provider Active Start: December 12, 2024 Dr. Alis Chance MD Referring Provider Active Start: December 12, 2024 Team Status: Inactive Member Role Status Dates Dr. Tu Hector DO Primary Care Provider Active Start: December 12, 2024 End: December 12, 2024 Dr. Tu Hector DO Referring Provider Active Start: December 12, 2024 End: December 12, 2024 Anayeli Win HOSPICE COORDINATOR, HOSPICE COORDINATOR-C Attending Provider Active Start: December 12, 2024 End: December 12, 2024 Team Status: Inactive Member Role Status Dates Dr. Tu Hector DO Primary Care Provider Active Start: January 02, 2025 End: January 02, 2025 Dr. Tu Hector DO Referring Provider Active Start: January 02, 2025 End: January 02, 2025 Dr. Alis Chance MD Attending Provider Active Start: January 02, 2025 End: January 02, 2025 Team Status: Active Member Role Status Dates Dr. Tu Hector DO Primary Care Provider Active Start: January 02, 2025 Dr. Alis Chance MD Attending Provider Active Start: January 02, 2025 Dr. Alis Chance MD Referring Provider Active Start: January 02, 2025 Team Status: Active Member Role/Relationship Status Dates Dr. Tu Hector DO Primary Care Provider Active Team Status: Inactive Member Role/Relationship Status Dates Dr. Tu Hector DO Primary Care Provider Active Start: September 25, 2024 End: September 25, 2024 Rhiannon Georges HOSPICE COORDINATOR, HOSPICE COORDINATOR-C Attending Provider Active Start: September 25, 2024 End: September 25, 2024 Rhiannon Georges HOSPICE COORDINATOR, HOSPICE COORDINATOR-C Referring Provider Active Start: September 25, 2024 End: September 25, 2024 Team Status: Active Member Role/Relationship Status Dates Dr. Tu Hector DO Primary Care Provider Active Start: September 25, 2024 Dr. Jose Perdomo DO Attending Provider Active S tart: September 25, 2024 Rhiannon Georges HOSPICE COORDINATOR, HOSPICE COORDINATOR-C Referring Provider Active Start: September 25, 2024 Team Status: Inactive Member Role/Relationship Status Dates Dr. Tu Hector DO Primary Care Provider Active Start: September 28, 2024 End: September 28, 2024 Dr. Tu Hector DO Referring Provider Active Start: September 28, 2024 End: September 28, 2024 Rhiannon Georges HOSPICE COORDINATOR, HOSPICE COORDINATOR-C Attending Provider Active Start: September 28, 2024 End: September 28, 2024 Team Status: Inactive Member Role/Relationship Status Dates Dr. Tu Hector DO Primary Care Provider Active Start: October 05, 2024 End: October 05, 2024 Dr. Marty Woods DO Attending Provider Active Start: October 05, 2024 End: October 05, 2024 Dr. Marty Woods DO Emergency Provider Active Start: October 05, 2024 End: October 05, 2024 Team Status: Inactive Member Role/Relationship Status Dates Dr. Tu Hector DO Primary Care Provider Active Start: October 10, 2024 End: October 10, 2024 Dr. Tu Hector DO Attending Provider Active Start: October 10, 2024 End: October 10, 2024 Dr. Tu Hector DO Referring Provider Active Start: October 10, 2024 End: October 10, 2024 Team Status: Inactive Member Role/Relationship Status Dates Dr. Tu Hcetor DO Primary Care Provider Active Start: October 21, 2024 End: October 21, 2024 Tay Dumont MD Attending Provider Active Star t: October 21, 2024 End: October 21, 2024 Tay Dumont MD Emergency Provider Active Star t: October 21, 2024 End: October 21, 2024 Team Status: Inactive Member Role/Relationship Status Dates Dr. Tu Hector DO Primary Care Provider Active Start: October 25, 2024 End: October 25, 2024 Dr. Tu Hector DO Referring Provider Active Start: October 25, 2024 End: October 25, 2024 Dr. Wilfrido Karimi MD Attending Provider Active S tart: October 25, 2024 End: October 25, 2024 Team Status: Inactive Member Role/Relationship Status Dates Dr. Tu Hector DO Primary Care Provider Active Start: October 26, 2024 End: October 26, 2024 Dr. Tu Hector DO Referring Provider Active Start: October 26, 2024 End: October 26, 2024 Anayeli Win HOSPICE COORDINATOR, HOSPICE COORDINATOR-C Attending Provider Active Start: October 26, 2024 End: October 26, 2024 Team Status: Inactive Member Role/Relationship Status Dates Dr. Tu Hector DO Primary Care Provider Active Start: October 27, 2024 End: October 27, 2024 Dr. Tu Hector DO Referring Provider Active Start: October 27, 2024 End: October 27, 2024 Dr. Omar Hicks MD Attending Provider Active Start: October 27, 2024 End: October 27, 2024 Team Status: Inactive Member Role/Relationship Status Dates Dr. Tu Hector DO Primary Care Provider Active Start: October 31, 2024 End: October 31, 2024 Dr. Tu Hector DO Referring Provider Active Start: October 31, 2024 End: October 31, 2024 Anayeli Win HOSPICE COORDINATOR, HOSPICE COORDINATOR-C Attending Provider Active Start: October 31, 2024 End: October 31, 2024 Team Status: Inactive Member Role/Relationship Status Dates Dr. Tu Hector DO Primary Care Provider Active Start: November 09, 2024 End: November 09, 2024 Dr. Tu Hector DO Referring Provider Active Start: November 09, 2024 End: November 09, 2024 Anayeli Win HOSPICE COORDINATOR, HOSPICE COORDINATOR-C Attending Provider Active Start: November 09, 2024 End: November 09, 2024 Team Status: Inactive Member Role/Relationship Status Dates Dr. Tu Hector DO Primary Care Provider Active Start: November 16, 2024 End: November 16, 2024 Dr. Omar Hicks MD Attending Provider Active Start: November 16, 2024 End: November 16, 2024 Dr. Omar Hicks MD Referring Provider Active Start: November 16, 2024 End: November 16, 2024 Team Status: Active Member Role/Relationship Status Dates Dr. Tu Hector DO Primary Care Provider Active Start: November 16, 2024 Dr. Omar Hicks MD Attending Provider Active Start: November 16, 2024 Dr. Omar Hicks MD Referring Provider Active Start: November 16, 2024 Dr. Omar Hicks MD Other Provider Active Start: November 16, 2024 Team Status: Inactive Member Role/Relationship Status Dates Dr. Tu Hector DO Primary Care Provider Active Start: November 17, 2024 End: November 17, 2024 Dr. Tu Hector DO Referring Provider Active Start: November 17, 2024 End: November 17, 2024 Dr. Kilo Morse MD Attending Provider Active Start: November 17, 2024 End: November 17, 2024 Team Status: Inactive Member Role/Relationship Status Dates Dr. Tu Hector DO Primary Care Provider Active Start: November 21, 2024 End: November 21, 2024 Dr. Tu Hector DO Referring Provider Active Start: November 21, 2024 End: November 21, 2024 Dr. Alis Chance MD Attending Provider Active Start: November 21, 2024 End: November 21, 2024 Team Status: Inactive Member Role/Relationship Status Dates Dr. Tu Hector DO Primary Care Provider Active Start: December 12, 2024 End: December 12, 2024 Dr. Tu Hector DO Referring Provider Active Start: December 12, 2024 End: December 12, 2024 Anayeli Win HOSPICE COORDINATOR, HOSPICE COORDINATOR-C Attending Provider Active Start: December 12, 2024 End: December 12, 2024 Team Status: Inactive Member Role/Relationship Status Dates Dr. Tu Hector DO Primary Care Provider Active Start: January 02, 2025 End: January 02, 2025 Dr. Tu Hector DO Referring Provider Active Start: January 02, 2025 End: January 02, 2025 Dr. Alis Chance MD Attending Provider Active Start: January 02, 2025 End: January 02, 2025 Team Status: Active Member Role/Relationship Status Dates Dr. Tu Hector DO Primary Care Provider Active Start: January 04, 2025 Dr. Alis Chance MD Attending Provider Active Start: January 04, 2025 Dr. Alis Chance MD Referring Provider Active Start: January 04, 2025 Team Status: Inactive Member Role/Relationship Status Dates Dr. Tu Hector DO Primary Care Provider Active Start: January 16, 2025 End: January 16, 2025 Anayeli Audelia HOSPICE COORDINATOR, HOSPICE COORDINATOR-C Attending Provider Active Start: January 16, 2025 End: January 16, 2025 Anayeli Audelia HOSPICE COORDINATOR, HOSPICE COORDINATOR-C Referring Provider Active Start: January 16, 2025 End: January 16, 2025 Team Status: Inactive Member Role/Relationship Status Dates Dr. Tu Hector DO Primary Care Provider Active Start: January 16, 2025 End: January 16, 2025 Anayeli Audelia HOSPICE COORDINATOR, HOSPICE COORDINATOR-C Attending Provider Active Start: January 16, 2025 End: January 16, 2025 Anayeli Audelia HOSPICE COORDINATOR, HOSPICE COORDINATOR-C Referring Provider Active Start: January 16, 2025 End: January 16, 2025 Team Status: Inactive Member Role/Relationship Status Dates Dr. Tu Hector DO Primary Care Provider Active Start: January 23, 2025 End: January 23, 2025 Dr. Tu Hector DO Referring Provider Active Start: January 23, 2025 End: January 23, 2025 Dr. Alis Chance MD Attending Provider Active Start: January 23, 2025 End: January 23, 2025 Team Status: Active Member Role/Relationship Status Dates Dr. Tu Hector DO Primary Care Provider Active Start: January 23, 2025 Dr. Alis Chance MD Attending Provider Active Start: January 23, 2025 Dr. Alis Chance MD Referring Provider Active Start: January 23, 2025 Source Comments (unrecognize d section and content) In the event this informatio n is protected by the Federal Confidentiality of Alcohol and Drug Abuse Patient Records regulations: The Federal rules restrict any use of the information to criminally investigate or prosecute any alcohol or drug abuse patient.[facility] the event this information is protected by the Federal Confidentiality of Alcohol and Drug Abuse Patient Records regulations: The Federal rules restrict any use of the information to criminally investigate or prosecute any alcohol or drug abuse patient.[facility] the event this information is protected by the Federal Confidentiality of Alcohol and Drug Abuse Patient Records regulations: The Federal rules restrict any use of the information to criminally investigate or prosecute any alcohol or drug abuse patient.[facility] the event this information is protected by the Federal Confidentiality of Alcohol and Drug Abuse Patient Records regulations: The Federal rules restrict any use of the information to criminally investigate or prosecute any alcohol or drug abuse patient.[facility] the event this information is protected by the Federal Confidentiality of Alcohol and Drug Abuse Patient Records regulations: The Federal rules restrict any use of the information to criminally investigate or prosecute any alcohol or drug abuse patient.[facility] the event this information is protected by the Federal Confidentiality of Alcohol and Drug Abuse Patient Records regulations: The Federal rules restrict any use of the information to criminally investigate or prosecute any alcohol or drug abuse patient.[facility]In the event this information is protected by the Federal Confidentiality of Alcohol and Drug Abuse Patient Records regulations: The Federal rules restrict any use of the information to criminally investigate or prosecute any alcohol or drug abuse patient.[facility] Reason for Visit (unrecogniz ed section and content) Reason Comments Rash Bottom lower half of right leg, dizziness started at 1:30 am this morning Reason Comments New Patient Mass left elbow/Dr Jackelyn napic Reason Comments Cough Cough, sinus pressur e and drainage x 2 days Reason Comments Sinus Problem sinus pressure, drai nage, sob x 3 days Reason Onset Date Comments Results 09/03/2024 Reason Onset Date Comments Care Coordination 10/03/2024 Lung Nodule Fo llow up / Expedite LNC and Cardiology eval / PFT From [place] [facility] Reason Comments New Patient Shortness of Breath >1yr Reason Comments New Patient Reason Onset Date Comments Care Coordination 10/05/2024 Reason Comments Tumor Board Recommendations Thoracic Dalila or Board Recommendations 10/17/24 Reason Comments Follow-up Reason Onset Date Comments Care Coordination 10/17/2024 Expedite PET s can and send records to med onc in [place] Reason Onset Date Comments Error (VOID this visit) 10/23/2024 Reason Comments New Patient Thyroid Problem Thyroid nodule Specialty Diagnoses / Procedures Referred By Contac t Referred To Contact Endocrinology Diagnoses Nontoxic single thyroid nodule Procedures [place] OFFICE/OUTPATIENT NEW MODERATE MDM 45 MINUTES Mast, Joselin [address] [place] [address] Phone: tel: fax: [facility] - [place] [address] [facility] [address] [place] [address] Phone: tel: fax: Referral ID Status Reason Start Date Expiration Date V isits Requested Visits Authorized [id number] Pending Review 10/24/2024 10/24/2025 1 1 Reason Onset Date Comments Other 11/01/2024 Goals (unrecognized section and content) Goals may be documented in a n alternate section INFORMATION SOURCE (unrecogn ized section and content) DATE CREATED AUTHOR 02/27/2024 [facility] ([place]) DATE CREATED AUTHOR AUTHOR'S ORGANIZ ATION 09/04/2024 [facility] DATE CREATED AUTHOR AUTHOR'S ORGANIZ ATION 09/27/2024 [facility] DATE CREATED AUTHOR AUTHOR'S ORGANIZ ATION 11/24/2024 [facility] DATE CREATED AUTHOR AUTHOR'S ORGANIZ ATION 12/02/2024 [facility] DATE CREATED AUTHOR AUTHOR'S ORGANIZ ATION 01/25/2025 [facility] Scheduled Active and Recently Administ ered Medications (unrecognized section and content) Medication Order 10/04/2024 10/05/2024 10/06/2024 enoxaparin (Lovenox) syringe 40 mg 40 mg, SubCUTAneous, Every 24 hours scheduled (Daily), First dose on Wed10/06/24 at 0900, Indication of Use: Prophylaxis-DVT/PE, Indications: Prophylaxis of Venous Thromboembolism 1400 (Not Given - Provider: Dannielle Lawson RN - Reason: Other - Comment: Administration moved for potential procedure. refused patient to have biopsy wednesday and was told not to take thinners) hydroCHLOROthiazide (HYDRODiuril) tablet 25 mg 25 mg, Oral, Daily, First dose on Wed10/06/24 at 0900, On hold since Wed10/06/2024 at 0234 until manually unheld 0234 (Held by provid er - Provider: Sushila Tam MD - Reason: Change in vital signs)0900 (Dose Auto Held - Provider: Sushila Tam MD)1944 (Unheld by provider - Provider: Automatic Discharge Provider) ipratropium-albuterol (Duo-Neb) 0.5-2.5 mg/3 mL nebulizer solution 3 mL 3 mL, Nebulization, 3 times daily, First dose on Wed10/05/24 at 2245 2245 (Not Given - Provider: Livan Colon RRT - Reason: Order parameters not met) 0747 (Given - Provider: Sean Chen, MONICA)1155 (Given - Provider: Sean Chen RRT) melatonin tablet 10 mg 10 mg, Oral, Nightly, First dose on Wed10/05/24 at 2230 2228 (Given - Provider: Pravin Duval RN) mometasone-formoterol (Dulera 200) 200-5 MCG/ACT inhaler 2 puff 2 puff, Inhalation, 2 times daily, First dose on Wed10/05/24 at 2230, Rinse mouth with water after use to reduce aftertaste and incidence of candidiasis. Do not swallow. 2230 (Not Given - Provider: Pravin Duval RN - Reason: Patient/family refused - Comment: patient wants to start in AM) 1037 (Given - Provider: Dannielle Lawson RN) sodium chloride 0.9% (NS) flush 10 mL 10 mL, IntraVENous, Every 12 hours scheduled (2 times per day), First dose on Wed10/05/24 at 2100 2100 (Canceled Entry - Provider: Pravin Duval RN) 1036 (Given - Provider: Dannielle Lawson RN) sodium chloride 0.9% (NS) flush 5-40 mL 5-40 mL, IntraVENous, Every 12 hours, First dose on Ricarda 10/05/24 at 2230, For Line Patency: Peripheral IV = 5 mL; Midline or Central Line = 10 mL/lumen. If following IV push medication, administer flush at same rate as the IV push. Flush volume is determined by type of infusion therapy being given. For non-viscous solutions use: Peripheral IV = 5 mL Midline or Central Line = 10 mL/lumen For viscous solutions (i.e. blood components, parenteral nutrition, contrast media, or after obtaining blood sample) use: Peripheral IV = 10 mL Midline or Central Line = 20 mL/lumen 2230 (Canceled Entry - Provider: Pravin Duval RN) 1030 (Not Given - Provider: Dannielle Lawson RN - Reason: Other - Comment: duplicate) traZODone (Desyrel) tablet 200 mg 200 mg, Oral, Nightly, First dose on Ricarda 10/05/24 at 2230 2228 (Given - Provider: Pravin Duval RN) PRN Medication Order 10/04/2024 10/05/2024 10/06/2024 acetaminophen (Tylenol) suppository 650 mg(Linked Group 1) 650 mg, Rectal, Every 6 hours PRN, fever, For temp greater than 100.4 F (38 C), Starting on Wed10/05/24 at 2211, Administer if oral route cannot be used. Maximum dose of acetaminophen is 4000 mg from all sources in 24 hours. acetaminophen (Tylenol) tablet 650 mg(Linked Group 1) 650 mg, Oral, Every 6 hours PRN, mild pain (1-3), fever, For temp greater than 100.4 F (38 C), Starting on Ricarda 10/05/24 at 2211, Maximum dose of acetaminophen is 4000 mg from all sources in 24 hours. albuterol 108 (90 Base) MCG/ACT inhaler 2 puff 2 puff, Inhalation, Every 4 hours PRN, wheezing, shortness of breath, Starting on Wed10/05/24 at 2209 barium sulfate (Varibar [place], Varibar Honey) 40 % suspension 10 mL (COMPLETED) 10 mL, Oral, IMG once PRN, contrast, Starting on Wed10/06/24 at 0858, For 1 dose 0903 (Given - Provid er: Veronica E Aliyah, RT (R)) barium sulfate (Varibar Pudding) 40 % oral paste 10 mL (COMPLETED) 10 mL, Oral, IMG once PRN, contrast, Starting on Wed10/06/24 at 0858, For 1 dose, Administer with oral syringe or spoon. Max cumulative dose of 30 mL. Discard any unused product 21 days after tube opened. 0903 (Given - Provid er: Veronica Ly, RT (R)) barium sulfate (Varibar THIN Liquid) 40 % suspension 10 mL (COMPLETED) 10 mL, Oral, IMG once PRN, contrast, Starting on Wed10/06/24 at 0857, For 1 dose 0903 (Given - Provid er: Veronica Ly, RT (R)) busPIRone (Buspar) tablet 10 mg 10 mg, Oral, 3 times daily PRN, anxiety, Starting on Ricarda 10/05/24 at 2209 0242 (Given - Provid er: Pravin Duval RN) HYDROmorphone (Dilaudid) injection 0.5 mg 0.5 mg, IntraVENous, Every 4 hours PRN, severe pain (7-10), Starting on Ricarda 10/05/24 at 2216, If oral and injectable narcotics ordered, use oral first and only use injectable if oral is ineffective or cannot take oral. Do Not give oral and injectable within 1 hour of each other unless specifically ordered. 2228 (Given - Provider: Pravin Duval RN) ipratropium-albuterol (Duo-Neb) 0.5-2.5 mg/3 mL nebulizer solution 3 mL 3 mL, Nebulization, Every 4 hours PRN, wheezing, Starting on Ricarda 10/05/24 at 2234 naloxone (Narcan) injection 0.4 mg 0.4 mg, IntraVENous, PRN, opioid reversal, Starting on Ricarda 10/05/24 at 2016, For oversedation/difficult to rouse, pinpoint pupils, RR < 8; notify primary team conceptor if used ondansetron (Zofran) injection 4 mg(Linked Group 2) 4 mg, IntraVENous, Every 6 hours PRN, nausea, vomiting, Starting on Ricarda 10/05/24 at 2211, 1st Line. Give IV if patient is unable to take orally. If inadequate response within 60 minutes, proceed to next-line agent or contact provider if no further options ordered. ondansetron ODT (Zofran-ODT) disintegrating tablet 4 mg(Linked Group 2) 4 mg, Oral, Every 8 hours PRN, nausea, vomiting, Starting on Ricarda 10/05/24 at 2211, 1st Line. If inadequate response within 60 minutes, proceed to next-line agent or contact provider if no further options ordered. Patient should allow tablet to dissolve on tongue. Do not remove from blister pack until just before administering. oxyCODONE (Roxicodone) immediate release tablet 10 mg(Linked Group 3) 10 mg, Oral, Every 6 hours PRN, severe pain (7-10), Starting on Ricarda 10/05/24 at 2015 oxyCODONE (Roxicodone) immediate release tablet 5 mg(Linked Group 3) 5 mg, Oral, Every 6 hours PRN, moderate pain (4-6), Starting on Ricarda 10/05/24 at 2015 oxyCODONE-acetaminophen (Percocet) 5-325 MG per tablet 1 tablet 1 tablet, Oral, Every 8 hours PRN, moderate pain (4-6), Starting on Ricarda 10/05/24 at 2210, Maximum dose of acetaminophen is 4000 mg from all sources in 24 hours. 0156 (Given - Provid er: Prvain Duval RN)1117 (Given - Provider: Dannielle Lawson RN) polyethylene glycol (PEG) 3350 (Miralax) packet 17 g 17 g, Oral, Daily PRN, constipation, Starting on Ricarda 10/05/24 at 2211, 1st line for treatment of constipation - give scheduled if no bowel movement in past 24 hours. sodium chloride 0.9 % infusion 5-250 mL/hr, IntraVENous, PRN, if patient receiving piggyback infusions and maintenance fluids are not ordered OR KVO fluids to protect IV site / prevent frequent line interruptions/ long duration, Starting on Ricarda 10/05/24 at 2009, For piggyback infusion, administer at same rate as piggyback for a total of 25 mL. Enter 25 mL into dose field and piggyback rate into rate field of order. If piggyback is infusing at a rate less than 100 mL/hr, enter 25 mL into dose field and 100 mL/hr into rate field of order. For KVO fluids, enter rate of 20 mL/hr or less into rate field of order. sodium chloride 0.9 % infusion 5-250 mL/hr, IntraVENous, PRN, if patient receiving piggyback infusions and maintenance fluids are not ordered OR KVO fluids to protect IV site / prevent frequent line interruptions / long duration, Starting on Ricarda 10/05/24 at 2211, For piggyback infusion, administer at same rate as piggyback for a total of 25 mL. Enter 25 mL into dose field and piggyback rate into rate field of order. If piggyback is infusing at a rate less than 100 mL/hr, enter 25 mL into dose field and 100 mL/hr into rate field of order. For KVO fluids, enter rate of 20 mL/hr or less into rate field of order. sodium chloride 0.9% (NS) flush 10 mL 10 mL, IntraVENous, PRN, line care, Starting on Ricarda 10/05/24 at 2009, After every IV line use sodium chloride 0.9% (NS) flush 5-40 mL 5-40 mL, IntraVENous, PRN, line care, After every IV line use, Starting on Ricarda 10/05/24 at 2211, For Line Patency: Peripheral IV = 5 mL; Midline or Central Line = 10 mL/lumen. If following IV push medication, administer flush at same rate as the IV push. Flush volume is determined by type of infusion therapy being given. For non-viscous solutions use: Peripheral IV = 5 mL Midline or Central Line = 10 mL/lumen For viscous solutions (i.e. blood components, parenteral nutrition, contrast media, or after obtaining blood sample) use: Peripheral IV = 10 mL Midline or Central Line = 20 mL/lumen Linked Groups Order Group 1: acetaminophen (Tylenol) tablet 650 mgJump to med 650 mg, Oral, Every 6 hours PRN, mild pain (1-3), fever, For temp greater than 100.4 F (38 C), Starting on Ricarda 10/05/24 at 2211, Maximum dose of acetaminophen is 4000 mg from all sources in 24 hours. Or acetaminophen (Tylenol) suppository 650 mgJump to med 650 mg, Rectal, Every 6 hours PRN, fever, For temp greater than 100.4 F (38 C), Starting on Ricarda 10/05/24 at 2211, Administer if oral route cannot be used. Maximum dose of acetaminophen is 4000 mg from all sources in 24 hours. Group 2: ondansetron ODT (Zofran-ODT) disintegrating tablet 4 mgJump to med 4 mg, Oral, Every 8 hours PRN, nausea, vomiting, Starting on Ricarda 10/05/24 at 2211, 1st Line. If inadequate response within 60 minutes, proceed to next-line agent or contact provider if no further options ordered. Patient should allow tablet to dissolve on tongue. Do not remove from blister pack until just before administering. Or ondansetron (Zofran) injection 4 mgJump to med 4 mg, IntraVENous, Every 6 hours PRN, nausea, vomiting, Starting on Ricarda 10/05/24 at 2211, 1st Line. Give IV if patient is unable to take orally. If inadequate response within 60 minutes, proceed to next-line agent or contact provider if no further options ordered. Group 3: oxyCODONE (Roxicodone) immediate release tablet 5 mgJump to med 5 mg, Oral, Every 6 hours PRN, moderate pain (4-6), Starting on Ricarda 10/05/24 at 2016 Or oxyCODONE (Roxicodone) immediate release tablet 10 mgJump to med 10 mg, Oral, Every 6 hours PRN, severe pain (7-10), Starting on Ricarda 10/05/24 at 2016 PRN Medication Order 10/07/2024 10/08/2024 10/09/2024 diphenhydrAMINE (BENADryl) injection 12.5 mg 12.5 mg, IntraVENous, Once PRN, itching, Starting on Wed10/09/24 at 1546, For 1 dose, Recovery (only) EPINEPHrine (Adrenalin) 1 MG/10ML injection (CANCELED) As needed, Starting on Wed10/09/24 at 1453, Intraprocedure 1453 (Given - Provid er: Cain Mejia MD - Comment: given via bronch scope)1532 (Given - Provider: Cain Mejia MD - Comment: given via bronch scope) hydrALAZINE (Apresoline) injection 5 mg(Linked Group 1) 5 mg, IntraVENous, Every 15 min PRN, high blood pressure, for SBP greater than 160 mmHg for 2 consecutive measurements taken from different sites, Starting on Wed10/09/24 at 1546, For 2 doses, Recovery (only), PRN for SBP > 160 for 2 consecutive measurements, and if one of the following conditions is met: 1) If IV labetolol is ineffective. 2) If HR is under 60. 3) If patient has heart block, COPD or asthma. If both labetalol and hydralazine ineffective, notify anesthesia provider. HYDROmorphone (Dilaudid) injection 0.25 mg 0.25 mg, IntraVENous, Every 5 min PRN, moderate pain (4-6), Starting on Wed10/09/24 at 1546, For 4 doses, Recovery (only), For Phase I. If Phase II oral narcotics have been administered in the last 60 minutes, do not administer IV narcotics unless specifically approved by provider. HYDROmorphone (Dilaudid) injection 0.5 mg 0.5 mg, IntraVENous, Every 5 min PRN, severe pain (7-10), Starting on Wed10/09/24 at 1546, For 4 doses, Recovery (only), For Phase I. If Phase II oral narcotics have been administered in the last 60 minutes, do not administer IV narcotics unless specifically approved by provider. labetalol (Normodyne,Trandate) injection 5 mg(Linked Group 1) 5 mg, IntraVENous, Every 10 min PRN, high blood pressure, for SBP greater than 160 mmHg for 2 consecutive measurements taken from different sites., Starting on Wed10/09/24 at 1546, For 2 doses, Recovery (only), PRN for SBP >160 for 2 consecutive measurements, if HR is 60 or greater. If beta mayuri is contraindicated (HR less than 60, heart block, COPD or asthma) use hydralazine IV order. LORazepam (Ativan) injection 0.5 mg 0.5 mg, IntraVENous, Once PRN, for anxiety or muscle spasm., Starting on Wed10/09/24 at 1546, For 1 dose, Recovery (only), For IV doses dilute dose with 1ml NS. meperidine (Demerol) injection 12.5 mg 12.5 mg, IntraVENous, Every 5 min PRN, shivering, Starting on Wed10/09/24 at 1546, For 2 doses, Recovery (only), May give every 5 minutes to max of 25mg. Notify Anesthesia Provider before administration. ondansetron (Zofran) injection 4 mg 4 mg, IntraVENous, Once PRN, nausea, Starting on Wed10/09/24 at 1546, For 1 dose, Recovery (only), Initial antiemetic therapy. oxyCODONE (Roxicodone) immediate release tablet 10 mg (COMPLETED)(Linked Group 2) 10 mg, Oral, Every 4 hours PRN, severe pain (7-10), Starting on Wed10/09/24 at 1546, For 1 dose, Recovery (only), PHASE II 161 (Given - Provid er: Seth Cagle RN) sodium chloride 0.9 % bolus 500 mL 500 mL, IntraVENous, at 1,000 mL/hr, Administer over 0.5 Hours, PRN, Anti-nausea, Starting on Wed10/09/24 at 1546, Recovery (only), Indications: Anti-nausea sodium chloride 0.9 % irrigation solution (CANCELED) As needed, Starting on Wed10/09/24 at 1533, Intraprocedure 1533 (Given - Provid er: Cain Mejia MD - Comment: given via bronch scope) Linked Groups Order Group 1: labetalol (Normodyne,Trandate) injection 5 mgJump to med 5 mg, IntraVENous, Every 10 min PRN, high blood pressure, for SBP greater than 160 mmHg for 2 consecutive measurements taken from different sites., Starting on Wed10/09/24 at 1546, For 2 doses, Recovery (only), PRN for SBP >160 for 2 consecutive measurements, if HR is 60 or greater. If beta mayuri is contraindicated (HR less than 60, heart block, COPD or asthma) use hydralazine IV order. Or hydrALAZINE (Apresoline) injection 5 mgJump to med 5 mg, IntraVENous, Every 15 min PRN, high blood pressure, for SBP greater than 160 mmHg for 2 consecutive measurements taken from different sites, Starting on Wed10/09/24 at 1546, For 2 doses, Recovery (only), PRN for SBP > 160 for 2 consecutive measurements, and if one of the following conditions is met: 1) If IV labetolol is ineffective. 2) If HR is under 60. 3) If patient has heart block, COPD or asthma. If both labetalol and hydralazine ineffective, notify anesthesia provider. Group 2: oxyCODONE (Roxicodone) immediate release tablet 5 mg (COMPLETED) 5 mg, Oral, Every 4 hours PRN, moderate pain (4-6), Starting on Wed10/09/24 at 1546, For 1 dose, Recovery (only), PHASE II Or oxyCODONE (Roxicodone) immediate release tablet 10 mg (COMPLETED)Jump to med 10 mg, Oral, Every 4 hours PRN, severe pain (7-10), Starting on Wed10/09/24 at 1546, For 1 dose, Recovery (only), PHASE II FOR RECORDS PERTAINING TO PATIENTS WHO ARE OR HAVE BEEN ENROLLED IN A CHEMICAL DEPENDENCY/SUBSTANCEABUSE PROGRAM, SOME INFORMATION MAY BE OMITTED. This clinical summary was aggregated from multiple sources. Caution should be exercised in using it in the provision of clinical care. This summary normalizes information from multiple sources, and as a consequence, information in this document may materially change the coding, format and clinical context of patient data. In addition, data may be omitted in some cases. CLINICAL DECISIONS SHOULD BE BASED ON THE PRIMARY CLINICAL RECORDS. [employer] [facility] provides no warranty or guarantee of the accuracy or completeness of information in this document.
--- NOTE | 2025-01-28 20:12 | EX.ED.DYSGE1 ---
HPI <RAJIV Meza - Last Filed: 01/28/25 21:59> History of Present Illness Chief Complaint: Chest Pain Narrative Narrative: Patient presenting today with left-sided chest pain radiating to her left jaw and down her left arm she has had over the past 3 days. 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 She follows with Dr. Chance. She reports chronic dyspnea and uses supplemental O2 as needed, her shortness of breath has not been worse than usual. She denies any history of blood clots or recent surgery/travel/immobilization. She said earlier today she was having mid abdominal pain that has improved. Additionally, she reports swelling to her bilateral lower extremities that has been worse over the last few days. She denies history of CHF. She denies fevers, chills, coughing, nausea, vomiting, and bowel changes. PFS <RAJIV Meza - Last Filed: 01/28/25 21:59> [facility] Medical History Delayed surgical wound healing Constipation Pericardial effusion Hilar mass Right atrial mass Genital herpes Osteoporosis Migraine Hyperlipidemia Hiatal hernia GERD (gastroesophageal reflux disease) Depression Chronic kidney disease (CKD) Bilateral leg edema Thyroid enlargement Hypokalemia Wears dentures Wears glasses Post-menopausal Cancer History of steroid therapy Arthritis Back pain History of hiatal hernia Gastric reflux Former smoker On home oxygen therapy Asthma Shortness of breath on exertion Hoarseness Chronic cough History of edema Cardiology follow-up encounter History of echocardiogram Hypertension Coughing up blood Chest pain Anemia Encounter for antineoplastic immunotherapy Encounter for chemotherapy management Small cell lung cancer Encounter for education 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 COPD (chronic obstructive pulmonary disease) Home Medications ?Medication ?Instructions ?Recorded ?Last Taken ?Type albuterol sulfate 90 mcg/actuation 1 - 2 puff inhalation Q4H PRN PRN 08/24/19 Unknown History aerosol inhaler Sob &/Or Wheezing loratadine 10 mg tablet 10 mg PO DAILY 08/24/19 11/15/24 History multivitamin 1 tab PO QAM 09/18/24 11/15/24 History albuterol sulfate 2.5 mg/3 mL 2.5 mg inhalation PRN PRN 09/22/24 11/16/24 History (0.083 %) solution for nebulization shortness of breath or wheezing lidocaine-prilocaine 2.5 %-2.5 % 1 applic topical ONCE PRN port 10/26/24 Unknown Rx topical cream access 30 days #30 grams ondansetron 8 mg disintegrating 8 mg PO Q8H PRN nausea and 10/26/24 Unknown Rx tablet vomiting #30 tabs prochlorperazine maleate 10 mg 10 mg PO Q6H PRN nausea and 10/26/24 Unknown Rx tablet vomiting #30 tabs budesonide-formoterol HFA 80 2 inh inhalation .x4 11/09/24 11/16/24 History mcg-4.5 mcg/actuation aerosol inhaler melatonin 2.5 mg chewable tablet 2.5 mg PO QHS PRN sleep 11/09/24 11/15/24 History buspirone 10 mg tablet 10 mg PO TID PRN anxiety 11/13/24 11/16/24 History mecobalamin (vitamin B12) 1,000 1,000 mcg PO QDAY 11/13/24 11/15/24 History mcg chewable tablet pantoprazole 40 mg tablet,delayed 40 mg PO QDAY 11/13/24 11/16/24 History release docusate sodium 100 mg capsule 200 mg PO QDAY 11/17/24 Unknown History (Dulcolax Stool Softener (docusate)) ferrous sulfate 325 mg (65 mg 325 mg PO QDAY 11/17/24 Unknown History iron) tablet,delayed release osteo matrix PO DAILY 11/17/24 Unknown History trazodone 100 mg tablet 200 mg PO QHS 11/17/24 Unknown History valacyclovir 500 mg tablet 500 mg PO QDAY PRN shingles 11/17/24 Unknown History oxycodone 10 mg tablet 20 mg PO BID PRN pain 11/22/24 Unknown History bisacodyl 5 mg tablet 5 mg PO DAILY 12/13/24 Unknown History doxycycline hyclate 100 mg capsule 100 mg PO BID 7 days #14 caps 01/28/25 Unknown Rx Allergy/AdvReac Type Severity Reaction Status Date / Time calcipotriene Allergy Severe Rash Verified 01/28/25 17:44 Opioids - Morphine Analogues Allergy Severe Hives Verified 01/28/25 17:44 alendronate sodium (From Allergy Pain in Verified 01/28/25 17:44 Fosamax) joints cefaclor (From Ceclor) Allergy Hives Verified 01/28/25 17:44 ezetimibe Allergy Other Verified 01/28/25 17:44 Penicillins Allergy Hives Verified 01/28/25 17:44 tramadol HCl (From Ultram) Allergy Hives Verified 01/28/25 17:44 hydrochlorothiazide AdvReac Unknown reaction Verified 01/28/25 17:44 erythromycin base AdvReac Nausea Verified 01/28/25 17:44 Family History Mother Leukemia Osteoporosis Thyroid disorder Grandfather Brain cancer Father Respiratory disease Brother Heart disease Surgical History History of tubal ligation History of bunionectomy History of carpal tunnel surgery of right wrist History of eyelid surgery History of shoulder surgery History of carpal tunnel release History of bilateral knee replacement H/O breast biopsy History of appendectomy Previous back surgery Social History Smoking Status: Former smoker Tobacco: How many years used: 30 alcohol intake: never ROS <RAJIV Meza - Last Filed: 01/28/25 21:59> ROS ED Constitutional Constitutional ED: Denies chills or fever(s) Cardiovascular Cardiovascular: Reports chest pain Respiratory/Chest Respiratory/Chest: Reports dyspnea Gastrointestinal Gastrointestinal: Reports abdominal pain; Denies diarrhea, nausea or vomiting Genitourinary Genitourinary ED: Denies dysuria, hematuria or urinary urgency Musculoskeletal Musculoskeletal: Denies arthralgias or myalgias Integumentary Denies rash Neurologic Neurologic: Denies weakness EXAM <RAJIV Meza - Last Filed: 01/28/25 21:59> Physical Exam Const Vital Signs: 01/28/25 17:44 01/28/25 18:44 01/28/25 18:55 Temperature 98.5 F 98.4 F Temperature Source Oral Oral Pulse Rate 103 H 95 Respiratory Rate 16 10 L Respiratory Effort Short of Breath Blood Pressure 116/91 H 131/83 H Blood Pressure Mean 99 99 Pulse Ox 97 100 Oxygen Delivery Method Room Air Nasal Cannula Oxygen Flow Rate (L/min) 3 01/28/25 19:00 01/28/25 20:00 01/28/25 21:00 Temperature 98.4 F Temperature Source Oral Pulse Rate 95 88 88 Respiratory Rate 25 H 14 16 Respiratory Effort Blood Pressure 133/85 H 134/89 H 123/106 H Blood Pressure Mean 101 104 111 Pulse Ox 100 100 100 Oxygen Delivery Method Room Air Room Air Room Air Oxygen Flow Rate (L/min) 3 Positive well nourished, well developed and no apparent distress General Appearance ED: well developed HEENT Reports normocephalic and head/scalp atraumatic Mouth ED: Yes moist mucous membranes normal Eyes PERRL and EOMs intact bilaterally Neck full ROM and supple Chest Wall inspection of chest normal Resp normal respiratory effort and clear to auscultation bilaterally Cardio regular rate and regular rhythm GI soft to palpation, non-tender, non-distended and no masses Back/Spine normal ROM and normal to inspection Extremity normal to inspection and full ROM Extremity Narrative: Bilateral lower extremity edema, there is erythema and warmth to the anterior lower aspect of the bilateral lower legs Neuro oriented x3, CN's II-XII intact bilaterally, moves all extremities, no focal motor deficits and no sensory deficits noted Sensorium / Orientation: awake and alert Psych mental status grossly normal and thought process normal Skin no rashes or lesions noted and no wounds <Dr. Georgi Barroso DO - Last Filed: 01/28/25 21:59> Physical Exam Const Vital Signs: 01/28/25 17:44 01/28/25 18:44 01/28/25 18:55 Temperature 98.5 F 98.4 F Temperature Source Oral Oral Pulse Rate 103 H 95 Respiratory Rate 16 10 L Respiratory Effort Short of Breath Blood Pressure 116/91 H 131/83 H Blood Pressure Mean 99 99 Pulse Ox 97 100 Oxygen Delivery Method Room Air Nasal Cannula Oxygen Flow Rate (L/min) 3 01/28/25 19:00 01/28/25 20:00 01/28/25 21:00 Temperature 98.4 F Temperature Source Oral Pulse Rate 95 88 88 Respiratory Rate 25 H 14 16 Respiratory Effort Blood Pressure 133/85 H 134/89 H 123/106 H Blood Pressure Mean 101 104 111 Pulse Ox 100 100 100 Oxygen Delivery Method Room Air Room Air Room Air Oxygen Flow Rate (L/min) 3 MDM <RAJIV Meza - Last Filed: 01/28/25 21:59> [facility] MDM Narrative Medical decision making narrative: Patient presenting today with left-sided chest pain radiating to the left jaw and left arm that has been ongoing over the past few days. She does have a history of metastatic small cell lung cancer. She is slightly tachycardic here, given her cancer history, CT of the chest will be obtained to assess for PE, infiltrate, pleural effusion, and other abnormality. She also has swelling to her bilateral lower extremities that has been worse over the last several days. Cardiac labs initiated. Her abdomen/pelvis CT shows constipation, no evidence of bowel obstruction. She reports that she has been feeling constipated, she had a small bowel movement this morning, recommended she start taking MiraLAX which she has at home. Chest CTA negative for PE or other acute cardiopulmonary abnormality. I did offer her pain medication here and she declined. I do feel she would benefit from a course of antibiotics due to her lower leg swelling. There is erythema and warmth to the bilateral lower anterior aspects of the legs which may be consistent with cellulitis. She will be given doxycycline with first dose here. I recommended she have close follow-up with oncology and she will be discharged home in stable condition. Lab Data Attestation: I reviewed the patient's lab results. Lab results narrative: Hemoglobin 10.2, BNP 167, initial troponin 13 Labs: Laboratory Results - last 24 hr 01/28/25 01/28/25 19:30 19:33 WBC 5.3 RBC 3.30 L Hgb 10.2 L Hct 31.2 L MCV 94.5 MCH 30.9 MCHC 32.7 RDW Std Deviation 76.0 H RDW Coeff of Juan David 21.9 H Plt Count 439 MPV 8.6 Immature Gran % (Auto) 0.400 Neut % (Auto) 58.1 Lymph % (Auto) 24.7 Schleicher % (Auto) 16.2 H Eos % (Auto) 0.0 Baso % (Auto) 0.6 Absolute Neuts (auto) 3.1 Absolute Lymphs (auto) 1.31 Nucleated RBC % 0 Differential Comment SCANNED Hypochromasia RARE Anisocytosis 2+ Microcytosis 1+ Ovalocytes 1+ Sodium 137 Potassium 3.5 Chloride 100 Carbon Dioxide 26.1 Anion Gap 12 BUN 11 Creatinine 0.83 Estim Creat Clear Calc 56.95 Est GFR (MDRD) Non-Af 74 BUN/Creatinine Ratio 13.3 Glucose 111 H Calcium 8.8 Total Bilirubin 0.19 AST 22 ALT 23 Alkaline Phosphatase 83 Troponin T High Sens 13 D NT pro BNP II 167 Total Protein 5.9 Albumin 3.6 Globulin 2.3 Albumin/Globulin Ratio 1.6 Lipase 10 L Urine Color Yellow Urine Clarity Clear Urine pH 6.0 Ur Specific Chaplin 1.020 Urine Protein 15 H Urine Glucose (UA) Normal Urine Ketones Negative Urine Occult Blood Negative Urine Nitrite Negative Urine Bilirubin Negative Urine Urobilinogen Normal Ur Leukocyte Esterase Negative Radiography Diagnostic Testing: Clinical Impression(s) from Imaging Studies Abdomen/Pelvis CT 01/28/25 18:52 IMPRESSION: 1. Prominent fluid-filled loops of small bowel, without additional findings to suggest obstruction. There is scattered fecalization within the small bowel, suggestive of the clinical diagnosis of constipation. 2. Additional findings as detailed above, unchanged from CT performed 01/16/2025. Reading Location: [id number] Chest CTA 01/28/25 18:52 IMPRESSION: 1. No pulmonary embolism or acute cardiopulmonary abnormality. 2. Unchanged findings from CT performed on 01/16/2025, as detailed above. Reading Location: [facility] EKG Initial EKG: Comments: Bpm, normal sinus rhythm, no ST elevation, interpreted by attending ED physician <Dr. Georgi Barroso, DO - Last Filed: 01/28/25 21:59> [facility] Lab Data Labs: Laboratory Results - last 24 hr 01/28/25 01/28/25 19:30 19:33 WBC 5.3 RBC 3.30 L Hgb 10.2 L Hct 31.2 L MCV 94.5 MCH 30.9 MCHC 32.7 RDW Std Deviation 76.0 H RDW Coeff of Juan David 21.9 H Plt Count 439 MPV 8.6 Immature Gran % (Auto) 0.400 Neut % (Auto) 58.1 Lymph % (Auto) 24.7 Schleicher % (Auto) 16.2 H Eos % (Auto) 0.0 Baso % (Auto) 0.6 Absolute Neuts (auto) 3.1 Absolute Lymphs (auto) 1.31 Nucleated RBC % 0 Differential Comment SCANNED Hypochromasia RARE Anisocytosis 2+ Microcytosis 1+ Ovalocytes 1+ Sodium 137 Potassium 3.5 Chloride 100 Carbon Dioxide 26.1 Anion Gap 12 BUN 11 Creatinine 0.83 Estim Creat Clear Calc 56.95 Est GFR (MDRD) Non-Af 74 BUN/Creatinine Ratio 13.3 Glucose 111 H Calcium 8.8 Total Bilirubin 0.19 AST 22 ALT 23 Alkaline Phosphatase 83 Troponin T High Sens 13 D NT pro BNP II 167 Total Protein 5.9 Albumin 3.6 Globulin 2.3 Albumin/Globulin Ratio 1.6 Lipase 10 L Urine Color Yellow Urine Clarity Clear Urine pH 6.0 Ur Specific Chaplin 1.020 Urine Protein 15 H Urine Glucose (UA) Normal Urine Ketones Negative Urine Occult Blood Negative Urine Nitrite Negative Urine Bilirubin Negative Urine Urobilinogen Normal Ur Leukocyte Esterase Negative Radiography Diagnostic Testing: Clinical Impression(s) from Imaging Studies Abdomen/Pelvis CT 01/28/25 18:52 IMPRESSION: 1. Prominent fluid-filled loops of small bowel, without additional findings to suggest obstruction. There is scattered fecalization within the small bowel, suggestive of the clinical diagnosis of constipation. 2. Additional findings as detailed above, unchanged from CT performed 01/16/2025. Reading Location: [facility] Chest CTA 01/28/25 18:52 IMPRESSION: 1. No pulmonary embolism or acute cardiopulmonary abnormality. 2. Unchanged findings from CT performed on 01/16/2025, as detailed above. Reading Location: [facility] Treatment and Re-Evaluation :: ED attending note: I evaluated the patient in conjunction with the [facility]. I agree with his/her statements and above findings. I have personally performed a face to face assessment of the patient and have reviewed the [facility] Note. I performed a substantive portion of the visit including all aspects of the following. I personally saw the patient performed chart review, physical exam, reviewed labs, imaging (if obtained), and formulated a treatment and management plan. This note was generated with [employer] dictation software. It may contain incorrect words, spelling, and punctuation that were not noted in review of the chart prior to signing. Discharge Plan Triage Chief Complaint: Chest Pain ED Midlevel Provider: Bernarda Win ED Provider: Georgi Barroso Dx/Rx/DC Orders Clinical Impression: Cellulitis, Localized swelling of both lower legs, Hx of metastatic neoplastic disease, Chest pain, Constipation, Abdominal pain Instructions: ED Cellulitis, ED Chest Pain, Uncertain Cause Prescriptions: New doxycycline hyclate 100 mg capsule 100 mg PO BID 7 Days Qty: 14 0RF No Action multivitamin Tablet 1 tab PO QAM albuterol sulfate 2.5 mg /3 mL (0.083 %) solution for nebulization 2.5 mg inhalation PRN PRN (Reason: shortness of breath or wheezing) Patient Comments: [NO ORIGINAL SIG] prochlorperazine maleate 10 mg tablet 10 mg PO Q6H PRN (Reason: nausea and vomiting) Qty: 30 2RF ondansetron 8 mg tablet,disintegrating 8 mg PO Q8H PRN (Reason: nausea and vomiting) Qty: 30 2RF lidocaine-prilocaine 2.5-2.5 % cream 1 applic topical ONCE PRN (Reason: port access) 30 Days Qty: 30 2RF mecobalamin (vitamin B12) 1,000 mcg tablet,chewable 1,000 mcg PO QDAY pantoprazole 40 mg tablet,delayed release (DR/EC) 40 mg PO QDAY docusate sodium [Dulcolax Stool Softener (dss)] 100 mg capsule 200 mg PO QDAY osteo matrix PO DAILY ferrous sulfate 325 mg (65 mg iron) tablet,delayed release (DR/EC) 325 mg PO QDAY valacyclovir 500 mg tablet 500 mg PO QDAY PRN (Reason: shingles) albuterol sulfate 1 INHALER inhaler 1 - 2 puff inhalation Q4H PRN PRN (Reason: Sob &/Or Wheezing) loratadine 10 MG tablet 10 mg PO DAILY buspirone 10 mg tablet 10 mg PO TID PRN (Reason: anxiety) oxycodone 10 mg tablet 20 mg PO BID PRN (Reason: pain) bisacodyl 5 mg tablet 5 mg PO DAILY melatonin 2.5 mg tablet,chewable 2.5 mg PO QHS PRN (Reason: sleep) budesonide-formoterol 80-4.5 mcg/actuation HFA aerosol inhaler 2 inh INHALATION .x4 Patient Comments: [NO ORIGINAL SIG] Rx Instructions: 2 puffs in morning, 2 puffs at night trazodone 100 mg tablet 200 mg PO QHS Primary Care Provider: GIOVANNI MAURER Referrals: GIOVANNI MAURER CRNP [Primary Care Provider] - 5-7 Days Activity Restrictions/Additional Instructions: Close follow-up with your PCP return for any worsening symptoms or other concerns. Print Language: Syriac Disposition Disposition: Home, Self Care
[2025-01-28 20:25] LABS: Differential Indicated SCAN CRITERIA MET
[2025-01-28 20:44] LABS: AST(SGOT) 22 U/L (<=31); Alanine Aminotransfer ALT/SGPT 23 U/L (<=34); Albumin, Serum 3.6 g/dL (3.4-4.8); Alkaline Phosphatase 83 U/L (35-104); Anion Gap 12 (5-15); BUN 11 mg/dL (4-19); BUN/Creat Ratio 13.3 RATIO (10-20); Calcium,Total 8.8 mg/dL (7.6-11.0); Carbon Dioxide 26.1 mmol/L (21.0-32.0); Chloride 100 mmol/L (98-108); Estimated Creatinine Clearance 56.95 ml/min (50-250); Globulin 2.3 g/dL (2.2-4.2); Glucose 111 mg/dL (70-99); Lipase 10 U/L (13-75); Potassium 3.5 mmol/L (3.3-5.1)
[2025-01-28 20:47] LABS: Troponin T High Sensitivity 13 ng/L (<=14)
[2025-01-28 20:59] LABS: Pro- Brain NATRIURETIC PEPTIDE 167 pg/mL (<=900)
[2025-01-28 21:00] VITALS: BP 123/106; PULSE 88; RESP 16; O2SAT 100
[2025-01-28 21:03] LABS: Differential Comment SCANNED; Hypochromasia RARE
[2025-01-28 21:04] LABS: Anisocytosis 2+; Microcytosis 1+
[2025-01-28 21:37] LABS: Mucous, Urine 0 SEEN /hpf (<or=2+)
[2025-01-28 21:43] LABS: Color, Urine Yellow (Yellow); Glucose, Dipstick Normal (Normal); Ketone-Dipstick Negative (Negative); Leukocyte Esterase-Dipstick Negative /ul (Negative); Nitrite-Dipstick Negative (Negative); Occult Blood-Urine Negative /ul (Negative); Protein-Dipstick 15 mg/dl (Negative); Specific Gravity, Urine 1.020 (1.002-1.030); Urine Bilirubin Dipstick Negative (Negative)
[2025-01-28 21:58] LABS: Red Blood Cells-Urine 0-5 SEEN /hpf (0-5); Squamous Epithelial Cells - UA 0-5 SEEN /hpf (5-10)
[2025-01-28 22:17] VITALS: BP 120/75; PULSE 97; RESP 16; TEMP 36.7; O2SAT 98
[2025-01-28 22:20] LABS: Troponin T High Sens 2 HR 16 ng/L (<=14)
== END 2025-01-28 22:25 | disposition home or self-care (01) ==
PROVIDERS: Physician Assistant; Emergency Provider Emergency Medicine; PCP Nurse Practitioner Adult Health; Visit Provider Emergency Medicine
DX: L03.115 Cellulitis of right lower limb (principal); J44.9 Chronic obstructive pulmonary disease, unspecified; L03.116 Cellulitis of left lower limb; N18.9 Chronic kidney disease, unspecified; I12.9 Hypertensive chronic kidney disease with stage 1 through stage 4 chronic kidney disease, or unspecified chronic kidney disease; R06.00 Dyspnea, unspecified; Z87.891 Personal history of nicotine dependence
CPT/HCPCS: 71275; 74177; 80053; 81001; 83690; 83880; 84484; 85025; 93005; 99282; Q9967; A4216

== ENCOUNTER 2025-02-11 14:47 | Inpatient (IN) | payer MEDICARE, SELFPAY ==
[2025-02-11] VITALS (7 sets, daily range): BP systolic 110–128; BP diastolic 82–85; PULSE 105–124; RESP 13–22; TEMP 36.6–37.1; O2SAT 92–97; BMI 24.9
--- NOTE | 2025-02-11 15:13 | CT_ITS ---
PROCEDURE: ABDOMEN/PELVIS W IV CONT ONLY 02/11/2025 REASON FOR EXAM: PAIN, BLOATING TECHNIQUE: ABDOMEN/PELVIS W IV CONT ONLY Coronal and Sagittal reconstruction series were provided. CONTRAST: Isovue 370 VOLUME: 75 mL One or more dose reduction techniques were used (e.g., Automated exposure control, adjustment of the mA and/or kV according to patient size, use of iterative reconstruction technique. RADIATION DOSE SUMMARY: CTDlvol: 35 mGy DLP: 883 mGycm COMPARISON: 01/28/2025 FINDINGS: Prominent hiatal hernia again noted. No liver masses are seen. The spleen is normal. Again noted are small adrenal nodules. Hypodense lesion in the right lobe of the liver again seen. No pancreatic inflammation. Prior lumbar surgery. No solid renal mass. Normal abdominal aorta. On the current study, there is no free-fluid or free air. As on the prior study, there is moderate small bowel distention with reduced caliber of distal small bowel loops compatible with a persistent at least partial small bowel obstruction without perforation and without abscess. CT/Abdomen/Pelvis W IV Cont ONLY IMPRESSION: Findings concerning for a persistent small-bowel obstruction. Additional findi ngs are unchanged when compared to the prior study. Reading Location: [facility]
--- NOTE | 2025-02-11 15:14 | ED.VIS.GI ---
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 She states she takes a total of 10 mg of oxycodone a few times a day. She will usually take half a tablet that half an hour later take the other half. Over the last 2 weeks, she has had problems with constipation to the point where on Wednesday, 4 days ago, she had to disimpact herself. She has been taking Dulcolax as well. She started to have bowel movements again and feel improved but a day and a half later, she started experiencing abdominal bloating. She has vomited 3 or 4 times without hematemesis in the last 24 hours. She has diffuse abdominal pain and abdominal distention. Past abdominal surgery includes appendectomy at 17 years old. She denies any exacerbating or alleviating factors. No fevers or chills. PFSH PFS Medical History Delayed surgical wound healing Constipation Pericardial effusion Hilar mass Right atrial mass Genital herpes Osteoporosis Migraine Hyperlipidemia Hiatal hernia GERD (gastroesophageal reflux disease) Depression Chronic kidney disease (CKD) Bilateral leg edema Thyroid enlargement Hypokalemia Wears dentures Wears glasses Post-menopausal Cancer History of steroid therapy Arthritis Back pain History of hiatal hernia Gastric reflux Former smoker On home oxygen therapy Asthma Shortness of breath on exertion Hoarseness Chronic cough History of edema Cardiology follow-up encounter History of echocardiogram Hypertension Coughing up blood Chest pain Anemia Encounter for antineoplastic immunotherapy Encounter for chemotherapy management Small cell lung cancer Encounter for education 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 COPD (chronic obstructive pulmonary disease) Home Medications ?Medication ?Instructions ?Recorded ?Last Taken ?Type albuterol sulfate 90 mcg/actuation 1 - 2 puff inhalation Q4H PRN PRN 08/24/19 Unknown History aerosol inhaler Sob &/Or Wheezing loratadine 10 mg tablet 10 mg PO DAILY 08/24/19 11/15/24 History multivitamin 1 tab PO QAM 09/18/24 11/15/24 History albuterol sulfate 2.5 mg/3 mL 2.5 mg inhalation PRN PRN 09/22/24 11/16/24 History (0.083 %) solution for nebulization shortness of breath or wheezing lidocaine-prilocaine 2.5 %-2.5 % 1 applic topical ONCE PRN port 10/26/24 Unknown Rx topical cream access 30 days #30 grams ondansetron 8 mg disintegrating 8 mg PO Q8H PRN nausea and 10/26/24 Unknown Rx tablet vomiting #30 tabs prochlorperazine maleate 10 mg 10 mg PO Q6H PRN nausea and 10/26/24 Unknown Rx tablet vomiting #30 tabs budesonide-formoterol HFA 80 2 inh inhalation .x4 11/09/24 11/16/24 History mcg-4.5 mcg/actuation aerosol inhaler buspirone 10 mg tablet 10 mg PO TID PRN anxiety 11/13/24 11/16/24 History pantoprazole 40 mg tablet,delayed 40 mg PO QDAY 11/13/24 11/16/24 History release docusate sodium 100 mg capsule 200 mg PO QDAY 11/17/24 Unknown History (Dulcolax Stool Softener (docusate)) ferrous sulfate 325 mg (65 mg 325 mg PO QDAY 11/17/24 Unknown History iron) tablet,delayed release trazodone 100 mg tablet 150 mg PO QHS 11/17/24 Unknown History valacyclovir 500 mg tablet 500 mg PO QDAY PRN shingles 11/17/24 Unknown History oxycodone 10 mg tablet 10 mg PO BID PRN pain 11/22/24 Unknown History cyanocobalamin (vitamin B-12) 50 50 mcg PO DAILY 02/11/25 Unknown History mcg tablet durvalumab 50 mg/mL intravenous IV Q14D 02/11/25 Unknown History solution famotidine 10 mg tablet 10 mg PO BID 02/11/25 Unknown History furosemide 20 mg tablet 20 mg PO DAILY PRN swelling 02/11/25 Unknown History potassium chloride 20 mEq 20 meq PO DAILY 02/11/25 Unknown History tablet,extended release(part/cryst) zinc citrate, zinc oxide 50 mg 50 mg PO DAILY 02/11/25 Unknown History tablet Allergy/AdvReac Type Severity Reaction Status Date / Time calcipotriene Allergy Severe Rash Verified 02/11/25 14:51 Opioids - Morphine Analogues Allergy Severe Hives Verified 02/11/25 14:51 alendronate sodium (From Allergy Pain in Verified 02/11/25 14:51 Fosamax) joints cefaclor (From Ceclor) Allergy Hives Verified 02/11/25 14:51 ezetimibe Allergy Other Verified 02/11/25 14:51 Penicillins Allergy Hives Verified 02/11/25 14:51 tramadol HCl (From Ultram) Allergy Hives Verified 02/11/25 14:51 hydrochlorothiazide AdvReac Unknown reaction Verified 02/11/25 14:51 erythromycin base AdvReac Nausea Verified 02/11/25 14:51 Family History Mother Leukemia Osteoporosis Thyroid disorder Grandfather Brain cancer Father Respiratory disease Brother Heart disease Surgical History History of tubal ligation History of bunionectomy History of carpal tunnel surgery of right wrist History of eyelid surgery History of shoulder surgery History of carpal tunnel release History of bilateral knee replacement H/O breast biopsy History of appendectomy Previous back surgery Social History Smoking Status: Former smoker Tobacco: How many years used: 30 alcohol intake: never ROS ROS ED ROS Narrative Review of systems positive for abdominal pain and bloating. Positive constipation. 2 weeks of abdominal pain and constipation minorly improved 4 days ago. She states that she has been nauseated since the beginning of January, over the last 3 or 4 weeks. Last chemotherapy 5 weeks ago but she is currently on immunotherapy. She has something for nausea at home but states she vomited back up today. EXAM Physical Exam Narrative Exam Narrative: Afebrile. Vital signs noted. Nontoxic-appearing. Cardiovascular examination reveals mild tachycardia. Lungs are clear to auscultation bilaterally. Abdomen is diffusely tender with slightly diminished bowel sounds. Positive distention. Neurological examination nonfocal, nonlateralizing. Const Vital Signs: 02/11/25 14:48 02/11/25 14:51 02/11/25 17:00 Temperature 98.7 F 98.7 F 98.7 F Temperature Source Oral Oral Oral Pulse Rate 124 H 124 H 107 H Respiratory Rate 22 H 22 H 13 Blood Pressure 119/84 H 119/84 H 128/85 H Blood Pressure Mean 95 95 99 Pulse Ox 97 97 92 Oxygen Delivery Method Nasal Cannula Room Air Nasal Cannula Oxygen Flow Rate (L/min) 3 3 MDM MDM MDM Narrative Medical decision making narrative: The differential diagnosis includes but not limited to opiate bowel/constipation versus nonspecific abdominal pain versus bowel obstruction versus pancreatitis versus colitis. I have lower clinical suspicion for pancreatitis and colitis based on the history and physical. Comprehensive workup was pursued. She declined any opiate analgesics but she was administered ondansetron for nausea. I do feel CT imaging is indicated to help rule out bowel obstruction. I reviewed her laboratory work and she has a normal white count of 5.6 with hemoglobin 12.0, hematocrit 37.0, platelet count 191. Potassium slightly low at 3.1 on CMP so I will add a magnesium and this will be replaced intravenously. BUN 15 and creatinine normal at 0.97. Glucose 105 with a normal anion gap of 11. LFTs are grossly unremarkable. Lipase low at 10. When compared to prior labs was also 10. Urinalysis negative for infection. 0-5 WBCs. I do not feel that antibiotics are indicated. On review of the CT scan, she has dilated bowel loops. I reviewed the radiology report and there is concern for partial small bowel obstructions. She did have a prior study earlier in the month which showed dilated loops of bowel, but no evidence of acute obstruction. However, on review of today's radiology report, there is concern for partial small bowel obstruction. I discussed the patient with general surgery, Dr. Boyce who would like an NG tube placed and the patient given an enema as well, and requested admit to medicine. I discussed patient with Dr. Ami Magdaleno for admission. Disposition is admit to the medical surgical floor in stable condition. History & Record Review Discussion w/independent historian: Patient and Family Additional record(s) reviewed:: Prior outpatient record (CT scan with dilated bowel loops but no findings consistent with obstruction), Prior ED visit and Prior labs Lab Data Attestation: I reviewed the patient's lab results. Labs: Laboratory Results - last 24 hr 02/11/25 02/11/25 16:20 16:40 WBC 5.6 RBC 3.89 L Hgb 12.0 Hct 37.0 MCV 95.1 MCH 30.8 MCHC 32.4 RDW Std Deviation 58.0 H RDW Coeff of Juan David 16.8 H Plt Count 191 MPV 8.7 Immature Gran % (Auto) 0.400 Neut % (Auto) 71.5 H Lymph % (Auto) 16.0 L Clarke % (Auto) 11.7 H Eos % (Auto) 0.0 Baso % (Auto) 0.4 Absolute Neuts (auto) 4.0 Absolute Lymphs (auto) 0.90 Nucleated RBC % 0 Sodium 138 Potassium 3.1 L Chloride 100 Carbon Dioxide 26.7 Anion Gap 11 BUN 15 Creatinine 0.97 Estim Creat Clear Calc 46.45 L Est GFR (MDRD) Non-Af 62 BUN/Creatinine Ratio 15.3 Glucose 105 H Calcium 8.3 Magnesium 2.2 Total Bilirubin 0.31 AST 23 ALT 21 Alkaline Phosphatase 87 Total Protein 5.2 L Albumin 3.1 L Globulin 2.1 L Albumin/Globulin Ratio 1.5 Lipase 10 L Urine Color Yellow Urine Clarity Clear Urine pH 7.0 Ur Specific [place] 1.010 Urine Protein 30 H Urine Glucose (UA) Normal Urine Ketones 5 H Urine Occult Blood Negative Urine Nitrite Negative Urine Bilirubin Negative Urine Urobilinogen Normal Ur Leukocyte Esterase 25 H Urine RBC 0 SEEN Urine WBC 0-5 SEEN Ur Squamous Epith Cells 0 SEEN Urine Bacteria 2+ Urine Mucus 1+ Radiography Diagnostic Testing: Clinical Impression(s) from Imaging Studies Abdomen/Pelvis CT 02/11/25 15:13 IMPRESSION: Findings concerning for a persistent small-bowel obstruction. Additional findings are unchanged when compared to the prior study. Reading [facility] Management Discussion w/another healthcare provider: Hospitalist (Dr. Magdaleno) and Trust Evaluation Supervisor (General surgery, Dr. Boyce) Discharge Plan Dx/Rx/DC Orders Clinical Impression: Partial small bowel obstruction, Small cell lung cancer, Hypokalemia, Abdominal pain Disposition Disposition: Acute Care Hospital [facility]
[2025-02-11] MEDS: 0.9% Normal Saline (1000mL) 1,000 ML 999 ML IV (15:35)
--- OUTSIDE RECORDS SUMMARY | 2025-02-11 16:00 | XMS RPT_ITS | CCD ---
Author Organization [facility] Care Team Providers Care Executive Assistant To General Counsel Name Role Phone TU ODOM DO Primary Care Physician ([phone] Unavailable Primary Care Provider UnavailTu Prieto DO Primary Care Provider [phone] TU ODOM DO Primary Care Physician ([phone]) CHRIS ALATORRE DO Attending Unavailable LEI DO, TU Primary Care Unavailable LEI DO, TU Primary Care Unavailable LEI DO, TU Attending Unavailable LEI DO, TU Primary Care Unavailable LEI DOTU Attending Unavailable LEI DO, TU Primary Care Unavailable LEI DO, TU Attending Unavailable LEI DO, TU Primary Care Unavailable YURIDIA MYERS, DR FUNES Attending Unavailab le LEI DO, TU Primary Care Unavailable SHIKHA MYERS, MAXINE Be Attending Unavail able YURIDIA MYERS, DR FUNES Attending Unavailab le LEI DO, TU Primary Care Unavailable CHRIS ALATORRE DO Attending Unavailable LEI DO, TU Primary Care Unavailable LEI DO, TU Primary Care Unavailable YURIDIA MYERS, DR FUNES Attending Unavailab le Unavailable Primary Care Provider Unavailabl SERGIO Cohn Referring Unavailable MAST TRANSPORT TRUCK DRIVER-GIG TENDER, GIOVANNI Attending Unavailabl e LEI DO, TU Primary Care Unavailable LEI DO, TU Primary Care Unavailable MAST TRANSPORT TRUCK DRIVER-GIG TENDER, GIOVANNI Attending Unavailabl e LEI DO, TU Primary Care Unavailable MAST TRANSPORT TRUCK DRIVER-GIG TENDER, GIOVANNI Attending Unavailabl e LEI DO, TU Primary Care Unavailable MAST TRANSPORT TRUCK DRIVER-GIG TENDER, GIOVANNI Attending UnavailDr. Tu Prieto DO Primary Care Provider [phone] Dr. Anh Irene DO Attending Provider Dr. Anh Irene DO Emergency Provider [phone] Crow MYERS, Dr. Perez Attending Provider Crow MYERS, Dr. Perez Emergency Provider Crow MYERS, Dr. Perez Referring Provider Robson MYERS, Dr. Snell Attending Provider Robson MYERS, Dr. Snell Referring Provider Lei CAT, Dr. Mata Referring Provider Destini TURBINE INSPECTOR-C, Rhiannon Attending Provider Destini TURBINE INSPECTOR-C, Rhiannon Referring Provider Chuck CAT, Dr. Ferguson Emergency Provider Chuck CAT, Dr. Ferguson Attending Provider Lei CAT, Dr. Mata Attending Provider Lei CAT, Dr. Mata Primary Care Provider [phone] Tay Dumont MD Emergency Provider JOSELYN TUCKER Attending Unavailable MAST, GIOVANNI Referring Unavailable LEI, TU Primary Care Unavailable NORMAN, SILVIO Attending Unavailable LEI, TU Primary Care Unavailable RACHEL JOHNSON Attending Unava ilable LEI, TU Primary Care Unavailable WILFRIDO DELGADO Attending Unavailable LEI, TU Primary Care Unavailable NORMAN, SILVIO Attending Unavailable NORMAN, SILVIO Referring Unavailable LEI, TU Primary Care Unavailable NORMAN, SILVIO Attending Unavailable NORMAN, SILVIO Referring Unavailable LEI, TU Primary Care Unavailable NONE, PCP Referring Unavailable LEI, TU Primary Care Unavailable EMILE HORNE Attending Unavailable EMILE HORNE Admitting Unavailable DAIJA MEJIA Admitting Unavailable DAIJA MEJIA Attending Unavailable LEI, TU Primary Care Unavailable DAYNA-RACHEL KAMARA Attending Unava ilable LEI, TU Primary Care Unavailable NORMAN, SILVIO Attending Unavailable LEI, TU Primary Care Unavailable LEI DO, TU Primary Care Unavailable DICKSON MYERS, ENID Tao Attending Unavailable NOHEMY MYERS, DR JANNETH Browne Attending Celinai TU Kingsley DO Primary Care Unavailable Julia MYERS, Tay Attending Provider [phone] Sachi MYERS, Dr. Anna Attending Provider Audelia TURBINE INSPECTOR-C, Anayeli Attending Provider Fabiola MYERS, Dr. Nelson Attending Provider [phone] Fabiola MYERS, Dr. Nelson Referring Provider [phone] Fabiola MYERS, Dr. Nelson Other Provider Lito MYERS, Dr. Boateng Attending Provider Robson MYERS, Dr. Snell Referring Provider Robson MYERS, Dr. Snell Referring Provider Dr. Tu Odom DO Primary Care Provider [phone] Destini TURBINE INSPECTOR-C, Rhiannon Attending Provider Destini TURBINE INSPECTOR-C, Rhiannon Referring Provider Dr. Jose Perdomo DO Attending Provider Dr. Tu Odom DO Referring Provider Dr. Alis Chance MD Attending Provider Dr. Alis Chance MD Referring Provider Audelia TURBINE INSPECTOR-C, Anayeli Referring Provider Dr. Alis Chance MD Referring Provider Dr. Tu Odom DO Primary Care Provider [phone] Dr. Tu Odom DO Referring Provider GIOVANNI WILKINSON Primary Care Provider Dr. Georgi Barroso DO Emergency Provider Jose Perdomo Attending Unavailable Destini TURBINE INSPECTOR, Rhiannon Referring Unavailable Lei, Tu Primary Care Unavailable Chris Maria Attending Unavailable Lei, Tu Primary Care Unavailable Kilo Morse Attending Unavailable LeiTu pope Referring Unavailable Lei, Tu Primary Care Unavailable Lei, Tu Primary Care Unavailable Lei, Tu Referring Unavailable Audelia TURBINE INSPECTOR, Anayeli Attending Unavailable Marty Woods Attending Unavailable Lei, Tu Primary Care Unavailable Georges TURBINE INSPECTOR, Rhiannon Attending Unavailable Georges TURBINE INSPECTOR, Rhiannon Referring Unavailable Lei, Tu Primary Care Unavailable Omar Hicks Attending Unavailable RachelettaOmar Referring Unavailable Lei, Tu Primary Care Unavailable Jose Perdomo Attending Unavailable Lei, Tu Primary Care Unavailable Lei, Tu Referring Unavailable Lei, Tu Primary Care Unavailable Georges TURBINE INSPECTOR, Rhiannon Attending Unavailable Lei, Tu Primary Care Unavailable Lei, Tu Referring Unavailable Audelia TURBINE INSPECTOR, Anayeli Attending Unavailable Chris Maria Referring Unavailable Isckarus, Mansour Attending Unavailable Lei, Tu Primary Care Unavailable Lei, Tu Primary Care Unavailable Lei, Tu Referring Unavailable Audelia TURBINE INSPECTOR, Anayeli Attending Unavailable Lei, Tu Referring Unavailable Lei, Tu Primary Care Unavailable Wilfrido Karimi Attending Unavailable Tay Dumont Attending Unavailable Lei, Tu Primary Care Unavailable Lei, Tu Primary Care Unavailable Audelia TURBINE INSPECTOR, Anayeli Attending Unavailable Audelia TURBINE INSPECTOR, Anayeli Referring Unavailable Georges TURBINE INSPECTOR, Rhiannon Attending Unavailable Georges TURBINE INSPECTOR, Rhiannon Referring Unavailable Lei, Tu Primary Care Unavailable Lei, Tu Attending Unavailable Lei, Tu Referring Unavailable Lei, Tu Primary Care Unavailable Omar Hicks Consulting Unavailable Omar Hicks Attending Unavailable CalabrettaKhushiOmar Referring Unavailable Lei, Tu Primary Care Unavailable Lei, Tu Referring Unavailable Lei, Tu Primary Care Unavailable Isckarus, Mansour Attending Unavailable Lei, Tu Referring Unavailable Lei, Tu Primary Care Unavailable Audelia TURBINE INSPECTOR, Anayeli Attending Unavailable Lei, Tu Referring Unavailable Lei, Tu Primary Care Unavailable Isckarus, Mansour Attending Unavailable Isckarus, Mansour Referring Unavailable Isckarus, Mansour Attending Unavailable Lei, Tu Primary Care Unavailable Isckarus, Mansour Referring Unavailable Isckarus, Mansour Attending Unavailable Lei, Tu Primary Care Unavailable Anh Irene Attending Unavailable Lei, Tu Primary Care Unavailable CalabrettaKhushiOmar Attending Unavailable Lei, Tu Primary Care Unavailable Lei, Tu Referring Unavailable Tu Odom Referring Unavailable Destini TURBINE INSPECTOR, Rhiannon Attending Unavailable Tu Odom Primary Care Unavailable Tu Odom Referring Unavailable Alis Chance Attending Unavailable Tu Odom Primary Care Unavailable Destini TURBINE INSPECTOR, Rhiannon Referring Unavailable Destini TURBINE INSPECTOR, Rhiannon Attending Unavailable Tu Odom Primary Care Unavailable Georgi Barroso Attending Unavailable MAST, GIOVANNI Primary Care Unavailable Allergies Allergy Classification Reported Allergen(s) Allergy Type Date of Onset Reaction(s) Facility Alendronate (1 source) Alendronate; Translations: [alendronate] Drug Allergy Swelling / lump finding (finding), Muscle pain (finding) [facility] [place] Cephalosporins (antibiotic) (1 source) Cefaclor; Translations: [cefaclor] Drug Allergy Hives [facility] Macrolides (antibiotic) (1 source) Erythromycin; Translations: [erythromycin] Drug Allergy Stomach pain [facility]
[2025-02-11 16:30] LABS: Hematocrit 37.0 % (37-47); Hemoglobin 12.0 g/dL (12.0-15.0); Immature Granulocytes Count 0.020 X10^3/uL (0.0-0.0); Mean Corp Hgb Conc 32.4 g/dL (32-36); Mean Corpuscular Volume 95.1 fL (81-99); Mean Platelet Vol. 8.7 fl (6.2-12.0); NRBC Flagged by Analyzer 0 % (0-5); Platelet Count 191 K/mm3 (150-450); RBC Distribution Width CV 16.8 % (11.6-14.6); RBC Distribution Width SD 58.0 fl (35.1-43.9); Red Blood Count 3.89 M/mm3 (4.2-5.4); White Blood Count 5.6 K/mm3 (4.4-11.0)
[2025-02-11 16:45] LABS: AST(SGOT) 23 U/L (<=31); Alanine Aminotransfer ALT/SGPT 21 U/L (<=34); Albumin, Serum 3.1 g/dL (3.4-4.8); Alkaline Phosphatase 87 U/L (35-104); Anion Gap 11 (5-15); BUN 15 mg/dL (4-19); BUN/Creat Ratio 15.3 RATIO (10-20); Calcium,Total 8.3 mg/dL (7.6-11.0); Carbon Dioxide 26.7 mmol/L (21.0-32.0); Chloride 100 mmol/L (98-108); Estimated Creatinine Clearance 46.45 ml/min (50-250); Globulin 2.1 g/dL (2.2-4.2); Glucose 105 mg/dL (70-99); Lipase 10 U/L (13-75); Potassium 3.1 mmol/L (3.3-5.1)
[2025-02-11 16:50] LABS: Red Blood Cells-Urine 0 SEEN /hpf (0-5); Squamous Epithelial Cells - UA 0 SEEN /hpf (5-10)
[2025-02-11 16:52] LABS: Color, Urine Yellow (Yellow); Glucose, Dipstick Normal (Normal); Ketone-Dipstick 5 mg/dl (Negative); Leukocyte Esterase-Dipstick 25 /ul (Negative); Nitrite-Dipstick Negative (Negative); Occult Blood-Urine Negative /ul (Negative); Protein-Dipstick 30 mg/dl (Negative); Specific Gravity, Urine 1.010 (1.002-1.030); Urine Bilirubin Dipstick Negative (Negative)
[2025-02-11 17:03] LABS: Mucous, Urine 1+ /hpf (<or=2+)
[2025-02-11 17:13] LABS: Magnesium 2.2 mg/dL (1.5-2.2)
--- OUTSIDE RECORDS SUMMARY | 2025-02-11 17:56 | XMS RPT_ITS | CCD ---
Author Organization [facility] Care Team Providers Care Port Cdl A Driver Name Role Phone TU HECTOR DO Primary Care Physician [phone] Unavailable Primary Care Provider Tu Dasilva DO Primary Care Provider [phone] TU HECTOR DO Primary Care Physician [phone] CHRIS ALATORRE DO Attending Unavailable TAWNY DO, TU Primary Care Unavailable TAWNY CAT, TU Primary Care Unavailable TU HECTOR DO Attending Unavailable TAWNY CAT, TU Primary Care Unavailable TU HECTOR DO Attending Unavailable TAWNY CAT, TU Primary Care Unavailable TU HECTOR DO Attending Unavailable TAWNY CAT, TU Primary Care Unavailable YURIDIA MYERS, DR [...] Care Provider UnavailSERGIO Stone Referring Unavailable MAST CLAY PUDDLER-NURSING FACULTY, JOSELIN Attending UnavailTU Prieto DO Primary Care Unavailable TAWNY CAT TU Primary Care Unavailable MAST CLAY PUDDLER-NURSING FACULTY, JOSELIN Attending Unavailbk HECTOR DO, TU Primary Care Unavailable MAST CLAY PUDDLER-NURSING FACULTY, JOSELIN Attending Unavailbk HECTOR DO, TU Primary Care Unavailable MAST CLAY PUDDLER-MARIA G, JOSELIN Attending UnavailDr. Tu Prieto DO Primary Care Provider [phone] Dr. Anh Irene DO Attending Provider Teto CAT, Dr. Kamara Emergency Provider Crow MYERS, Dr. Perez Attending Provider Crow MYERS, Dr. Perez Emergency Provider [phone] Crow MYERS, Dr. Perez Referring Provider Robson MYERS, Dr. Snell Attending Provider Robson MYERS, Dr. Snell Referring Provider Tawny CAT, Dr. Mata Referring Provider Destini BOARD OF DIRECTORS-C, Rhiannon Attending Provider Destini BOARD OF DIRECTORS-C, Rhiannon Referring Provider Chuck CAT, Dr. Ferguson Emergency Provider Dr. Marty Woods DO Attending Provider [phone] Tawny CAT, Dr. Mata Attending Provider Dr. Tu Hector DO Primary Care Provider [phone] Tay Dumont MD Emergency Provider JOSELYN TUCKER Attending Unavailable MAST, JOSELIN Referring [...] Unavailable NOHEMY MYERS, DR JANNETH Browne Attending TU Maldonado DO Primary Care Unavailable Julia MYERS, Tay Attending Provider Sachi MYERS, Dr. Anna Attending Provider Audelia BOARD OF DIRECTORS-C, Anayeli Attending Provider Fabiola MYERS, Dr. Nelson Attending Provider Fabiola MYERS, Dr. Nelson Referring Provider [phone] Fabiola MYERS, Dr. Nelson Other Provider Lito MYERS, Dr. Boateng Attending Provider Robson MYERS, Dr. Snell Referring Provider Robson MYERS, Dr. Snell Referring Provider Dr. Tu Hector DO Primary Care Provider [phone] Destini BOARD OF DIRECTORS-C, Rhiannon Attending Provider Destini BOARD OF DIRECTORS-C, Rhiannon Referring Provider Dr. Jose Perdomo DO Attending Provider Dr. Tu Hector DO Referring Provider Dr. Alis Chance MD Attending Provider Dr. Alis Chance MD Referring Provider Audelia BOARD OF DIRECTORS-C, Anayeli Referring Provider Dr. Alis Chance MD Referring Provider Dr. Tu Hector DO Primary Care Provider [phone] Dr. Tu Hector DO Referring Provider JOSELIN WILKINSON Primary Care Provider [phone] Dr. Georgi Barroso DO Emergency Provider Jose Perdomo Attending Unavailable Destini BOARD OF DIRECTORS, Rhiannon Referring Unavailable Tu Hector Primary Care Unavailable Chris Maria Attending Unavailable Tu Hector Primary Care Unavailable Omar Hicks Attending Unavailable Tawny, Tu Primary Care Unavailable Tawny, Tu Referring Unavailable Tawny, Tu Referring Unavailable Tawny, Tu Primary Care Unavailable Isckarus, Mansour Attending Unavailable Tawny, Tu Primary Care Unavailable Destini BOARD OF DIRECTORS, Rhiannon Referring Unavailable Destini BOARD OF DIRECTORS, Rhiannon Attending Unavailable Isckarus, Mansour Referring Unavailable Isckarus, Mansour Attending Unavailable Tawny, Tu Primary Care Unavailable Isckarus, Mansour Referring Unavailable Isckarus, Mansour Attending Unavailable Tawny, Tu Primary Care Unavailable Marty Woods Attending Unavailable Tawny, Tu Primary Care Unavailable Tawny, Tu Referring Unavailable Isckarus, Mansour Attending Unavailable Tawny, Tu Primary Care Unavailable Tawny, Tu Referring Unavailable Tawny, Tu Primary Care Unavailable Audelia, Anayeli Attending Unavailable Tawny, Tu Referring Unavailable Tawny, Tu Primary Care Unavailable Isckarus, Mansour Attending Unavailable Tawny, Tu Attending Unavailable Tawny, Tu Referring Unavailable Tawny, Tu Primary Care Unavailable Georgi Barroso Attending Unavailable MAST, JOSELIN Primary Care Unavailable Destini BOARD OF DIRECTORS, Rhiannon Attending Unavailable Georges BOARD OF DIRECTORS, Rhiannon Referring Unavailable Tawny, Tu Primary Care Unavailable Tawny, Tu Primary Care Unavailable Audelia, Anayeli Attending Unavailable Audelia, Anayeli Referring Unavailable Destini BOARD OF DIRECTORS, Rhiannon Attending Unavailable Destini BOARD OF DIRECTORS, Rhiannon Referring Unavailable Tawny, Tu Primary Care Unavailable Omar Hicks Attending Unavailable Omar Hicks Referring Unavailable Tawny, Tu Primary Care Unavailable Chris Maria Referring Unavailable Isckarus, Mansour Attending Unavailable Tawny, Tu Primary Care Unavailable Tawny, Tu Primary Care Unavailable Tawny, Tu Referring Unavailable Audelia, Anayeli Attending Unavailable Tawny, Tu Referring Unavailable Tawny, Tu Primary Care Unavailable Kilo Morse Attending Unavailable Tawny, Tu Referring Unavailable Georges BOARD OF DIRECTORS, Rhiannon Attending Unavailable Tawny, Tu Primary Care Unavailable Tay Dumont Attending Unavailable MAST, JOSELIN Primary Care Unavailable Jose Perdomo Attending Unavailable Tawny, Tu Primary Care Unavailable Tawny, Tu Primary Care Unavailable Tawny, Tu Referring Unavailable Audelia, Anayeli Attending Unavailable Tawny, Tu Referring Unavailable Tawny, Tu Primary Care Unavailable Georges BOARD OF DIRECTORS, Rhiannon Attending Unavailable Tawny, Tu Referring Unavailable Tawny, Tu Primary Care Unavailable Wilfrido Karimi Attending Unavailable Omar Hicks Consulting Unavailable Omar Hicks Attending Unavailable Omar Hicks Referring Unavailable Tawny, Tu Primary Care Unavailable Tawny, Tu Primary Care Unavailable Tawny Tu Referring Unavailable Anayeli Win Attending Unavailable Tawny, Tu Primary Care Unavailable Tay Dumont Attending Unavailable Anh Irene Attending Unavailable Tawny, Tu Primary Care Unavailable Allergies Allergy Classification Reported Allergen(s) Allergy Type Date of Onset Reaction(s) Facility Alendronate (1 source) Alendronate; Translations: [alendronate] Drug Allergy Swelling / lump finding (finding), Muscle pain (finding) [facility] Cephalosporins (antibiotic) (1 source) Cefaclor; Translations: [cefaclor] Drug Allergy [facility] Macrolides (antibiotic) (1 source) Erythromycin; Translations: [erythromycin] Drug Allergy Stomach pain [facility] Opioid Agonists (2 sources) Morphine; Translations: [morphine] Drug Allergy Vomiting, Itching [facility] Penicillins (antibiotic) (1 source) Penicillin; Translations: [penicillin] Drug Allergy [facility] (20 sources) Alendronate; Translations: [alendronate] Drug Allergy 023 Swelling / lump finding (finding), Muscle pain (finding) [facility] Work Phone: (20 sources) Cefaclor; Translations: [cefaclor] Drug Allergy 007 [facility] Work Phone: (20 sources) Erythromycin; Translations: [erythromycin] Drug Allergy 007 GI Upset, Nausea And Vomiting [facility] Work Phone: (20 sources) Morphine; Translations: [morphine] Drug Allergy 019 Nausea And Vomiting [facility] Work Phone: (17 sources) Penicillin; Translations: [penicillin] Drug Allergy [facility] [place] [facility] Work Phone: (20 sources) traMADol; Translations: [tramadol] Drug Allergy 007 Hives, Itching, Nausea And Vomiting [facility] Work Phone: (8 sources) Aspirin / oxyCODONE Hydrochloride / oxyCODONE terephthalate; Translations: [OXYCODONE OLF-GQUUBQAUG-FIT] Drug Allergy 013 Vomiting [facility] Work Phone: [phone] (20 sources) hydroCHLOROthiazide / Triamterene; Translations: [TRIAMTERENE-HYDROCHLO ROTHIAZID] Drug Allergy 007 Rash [facility] Work Phone: (8 sources) Penicillins; Translations: [PENICILLINS] Propensity to adverse reactions 007 [facility] [place] [facility] Work Phone: (20 sources) traMADol; Translations: [TRAMADOL HCL] Drug Allergy 007 Vomiting [facility] Work Phone: (20 sources) famciclovir; Translations: [FAMCICLOVIR] Drug Allergy 019 [facility] (20 sources) gabapentin; Translations: [GABAPENTIN] Drug Allergy 019 Unknown [facility] (20 sources) Penicillins Drug Intolerance 007 [facility] (20 sources) Erythromycin Base; Translations: [erythromycin base] Drug Allergy 017 Nausea Only [facility] (16 sources) Alendronate Drug Allergy 023 Myalgia, Other: See Comments [facility] (12 sources) Penicillins Allergy to substance [facility] (4 sources) famciclovir Drug Allergy 019 Unknown [facility] (4 sources) predniSONE; Translations: [PREDNISONE] Drug Allergy 024 Other: See Comments, Dizziness (finding) [facility] (9 sources) ezetimibe; Translations: [ezetimibe] Drug Allergy Cough (finding), Muscle pain (finding), Blister - unit of product usage (qualifier value) Chyna Aiken [facility] Comment on above: cough, myalgia, blis ters (10 sources) Opioids - Morphine Analogues Allergy to substance Hives [facility] (2 sources) calcipotriene Drug Allergy Rash [facility] (2 sources) hydroCHLOROthiazide Drug Allergy reaction [facility] Comment on above: Was told it can caus e cancer family had bad experience (1 source) Alendronate Drug Allergy [facility] (1 source) calcipotriene Drug Allergy [facility] (1 source) Cefaclor Drug Allergy [facility] (1 source) ezetimibe Drug Allergy [facility] (1 source) hydroCHLOROthiazide Drug Allergy [facility] (1 source) Penicillins Drug allergy (disorder) [facility] (1 source) traMADol Drug Allergy [facility] (1 source) Opioids - Morphine Analogues Drug allergy (disorder) [facility] Medications Current Medications Medication Drug Class(es) [...] wheezing, # 30 EA, 2 Refill(s), Pharmacy: [facility], SOB (shortness of breath) COPD without exacerbation, [...] # 1 EA, 5 Refill(s), [facility]acy: [facility] #[id number], Cough Acute URI, 160, cm, 06/19/24 13:52:00 [...] 1 EA, 5 Refill(s), Pharmacy: [facility] #[id number], Cough Acute URI, 161, cm, 09/29/23 12:28:00 EDT, Height, kg, 09/29/23 12:28:00 EDT, Dosing Weight Start Date: 11/11/23 Stop Date: 05/09/24 Status: Ordered Start: 09-07-2023 End: 12-06-2023 take 2 puff(s) by inhalation four times daily as needed for wheezing Ventolin HFA MDI (90 mcg/inh) inhalation aerosol 2 puff(s), Inhalation, QID, PRN as needed for wheezing, # 1 EA, 2 Refill(s), Pharmacy: [facility] #[id number], Cough Acute URI, 161.5, cm, 07/06/23 10:58:00 EST, Height, kg, 07/06/23 10:58:00 EST, Dosing Weight Start Date: 09/07/23 Stop Date: 12/06/23 Status: Ordered Start: 01-06-2023 End: 07-05-2023 take 2 puff(s) by inhalation four times daily as needed for wheezing Ventolin HFA MDI (90 mcg/inh) inhalation aerosol 2 puff(s), Inhalation, QID, PRN as needed for wheezing, # 1 EA, 5 Refill(s), Pharmacy: [facility] #[id number], Moderate tobacco dependence Persistent cough, 159, cm, 01/06/23 13:31:00 EDT, Height, kg, 01/06/23 13:31:00 EDT, Dosing Weight Start Date: 01/06/23 Stop Date: 07/05/23 Status: Ordered Start: 07-03-2022 End: 12-30-2022 take 2 puff(s) by inhalation four times daily as needed for wheezing Ventolin HFA MDI (90 mcg/inh) inhalation aerosol 2 puff(s), Inhalation, QID, PRN as needed for wheezing, # 1 EA, 5 Refill(s), Pharmacy: [facility] #[id number], Moderate tobacco dependence, 159, cm, 07/03/22 14:04:00 EST, Height, kg, 07/03/22 14:04:00 EST, Dosing Weight Start Date: 07/03/22 Stop Date: 12/30/22 Status: Ordered Start: 07-01-2021 End: 12-28-2021 take 2 puff(s) by inhalation four times daily as needed for wheezing Ventolin HFA MDI (90 mcg/inh) inhalation aerosol 2 puff(s), Inhalation, QID, PRN as needed for wheezing, # 1 EA, 5 Refill(s), Pharmacy: [facility], Moderate tobacco dependence, 162, cm, 07/01/21 [...] Comment on above: Take [address] [facility] three times daily as needed for cough. bisacodyl 5 mg delayed release oral tablet (4 sources) Stimulant Laxative Start: 12-14-19 take 1 [...] d aily. clindamycin 300 mg oral capsule (14 sources) Lincosamide Antibacterial Start: 11-24-2024 End: 12-01-2024 [...] needed. docusate sodium 100 mg oral capsule (8 sources) Start: 11-17-2024 Docusate Sodium (Dulcolax Stool Softener (Dss)) 100 mg capsule Active 200 mg PO daily November 17, 2024 12:00am Start: 07-03-2022 take 1 mg by mouth twice daily Dulcolax Stool Softener mg =, Oral, BID, 0 Refill(s) Start Date: 07/03/22 Status: Ordered doxycycline hyclate 100 mg oral capsule (19 sources) Tetracycline-class Drug Start: 01-28-2025 take 1 capsule by mouth twice daily Doxycycline Hyclate 100 mg capsule Active 100 mg PO TWICE A DAY 14 7 0 January 28, 2025 12:00am Start: 06-20-2024 End: 09-18-2024 take 1 capsule by mouth twice daily Doxycycline Monohydrate 100 mg capsule Discontinued 100 mg PO TWICE A DAY 20 0 June 20, 2024 1:00am September 18, 2024 [...] for 7 days. 14 tablet 01/12/2021 01/19/2021 ezetimibe 10 mg oral tablet (1 source) Dietary Cholesterol Absorption Inhibitor Start: 02-02-2024 ezetimibe 10 mg oral tablet Dose : 10 mg = 1 tab(s), Oral, qDay, Discontinue simvastatin prescription please, # 90 tab(s), 1 Refill(s), Pharmacy: [facility] #[id number], Hyperlipidemia, 160, cm, 02/02/24 13:09:00 EDT, Height, kg, 02/02/24 13:09:00 EDT, Dosing Weight Start Date: 02/02/24 Status: Ordered ferrous sulfate 325 mg delayed release oral tablet (18 sources) Start: 11-17-2024 take 1 tablet by [...] nasal spray (14 sources) Corticosteroid Start: 11-30-19 19 take 2 spray(s) by mouth once daily [...] Start: 07-18-2018 take 2 tablets by mo [facility] twice daily guaiFENesin (MUCINEX) 600 mg 12 hr tablet Indications: Bronchitis Take 2 tablets by mouth twice daily. 60 tablet 07/18/2018 Active Comment on above: Take 2 tablets by mo [facility] twice daily. lidocaine 25 mg/ml / prilocaine 25 mg/ml topical cream (10 sources) Antiarrhythmic, Amide Local Anesthetic Start: 10-26-2024 [...] at bedtime. mecobalamin 1 mg chewable tablet (5 sources) Start: 5 take 1 tablet by mouth once daily Mecobalamin (Vitamin B12) 1,000 mcg tablet,chewable Active 1000 ug PO daily November 13, 2024 12:00am melatonin 2.5 mg chewable tablet (20 sources) Start: End: take 10 mg by mouth once daily 10 mg, Oral, Nightly, First dose on Ricarda 10/05/24 at 2230 Start: 10-05-2024 End: 11-09-2024 take [...] capsule by mouth daily. Active Multivitamin tablet (10 sources) Start: 09-18-2024 Multivitamin t ablet Active 1 {tbl} PO EVERY MORNING September 18, 2024 1:00am nabumetone 500 mg oral tablet (3 sources) Nonsteroidal Anti-inflammatory Drug Start: 07-03-2022 nabumetone 500 mg oral tablet Dose : 500 mg = 1 tab(s), Oral, BID, # 60 tab(s), 0 Refill(s) Start Date: 07/03/22 Status: Ordered [place]-3 Fatty Acids (OMEGA 3 500 PO) (20 sources) [place]-3 Fatty Ac ids (OMEGA 3 500 PO) Take by mouth daily. Suspended [place]-3 Fatty Ac ids (OMEGA 3 500 PO) Take by mouth daily. Active [place]-3 Fatty Ac ids (OMEGA 3 500 PO) Take by mouth. 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 osteo matrix (5 sources) Start: 11-17-2024 osteo matrix Active PO DAILY November 17, 2024 12:00am oxyCODONE hydrochloride 10 mg oral tablet (14 sources) Opioid Agonist Start: 11-22-2024 take 2 [...] by mouth. prochlorperazine 10 mg oral tablet (5 sources) Phenothiazine Start: 2024 take 1 tablet [...] BID, # 6.9 gram(s), 0 Refill(s), [id number], 159, cm, 09/13/24 8:34:00 EST, Height, kg, [...] on above: Take 1 tablet by gregg once daily. traZODone hydrochloride 100 mg oral [...] qHS, # 90 tab(s), 1 Refill(s), [facility]: [facility] #[id number], Insomnia, 159, cm, 07/03/22 14:04:00 EST, Height, kg, 07/03/22 14:04:00 EST, Dosing Weight Start Date: 07/03/22 Status: Ordered Start: 07-01-2021 traZODone 100 mg oral tablet Dose : 100 mg = 1 tab(s), Oral, qHS, Please cancel previous prescription sent in for this medication. Increased dose., # 90 tab(s), 0 Refill(s), [facility]acy: [facility], Insomnia, 162, cm, 07/01/21 14:16:00 EST, [...] Virus Nucleoside Analog DNA Polymerase Inhibitor Start: 5 take 1 tablet by mouth once daily [...] FLUIDS, # 6 tab(s), 1 Refill(s), Pharmacy: [facility] #[id number], 160, cm, 09/14/24 11:43:00 EST, Height, 77.9, kg, 09/14/24 11:43:00 [...] mg by mouth once daily. vitamin a 32388 unt oral capsule (3 sources) Vitamin A [...] / HYDROcodone bitartrate 5 mg oral tablet (12 sources) Opioid Agonist Start: 08-24-2019 End: 08-27-2019 [...] TABLET PO EVERY 6 HOURS NEEDED 10 August 24, 2019 August 27, 2019 1:09am [...] every 6 hours. Active barium sulfate (Varibar Poteet, Varibar Honey) 40 % suspension 10 mL [...] at 1546, For 1 dose, Recovery (only) 0.4 ml enoxaparin sodium 100 mg/ml prefilled [...] Corticosteroid, beta2-Adrenergic Agonist Start: 10-03-2024 End: 10-05-2024 Gigwbvolnbu-Rfytwjzxt-Lfnzm t (Trelegy Ellipta) 100-62.5-25 MCG/ACT aerosol powder Indications: [...] min PRN, severe pain (7-10), Starting on 10/09/24 at 1546, For 4 [...] 50 Plus Probiotic) 4 billion cell capsule (10 sources) Start: 09-18-2024 End: 10-05-2024 take 4 [...] sources) Start: 12-23-2022 Mult. Vitamins by Henrique Mult. Vitamins by Henrique, Carotomax, OmegaGuard, Osteo Matrix, Sona-Palak Gold w/ Vit. K, Optiflora D1, 0 Refill(s), 74.2 Start Date: 12/23/22 Status: Ordered Repeat number: 1 Start: 12-23-2022 Caritot. Vitamins by Henrique Orellana. Vitamins by Henrique, Carotomax, OmegaGuard, Osteo Matrix, Sona-Palak Gold w/ Vit. K, Optiflora D1, 0 Refill(s), 74.2 Start Date: 12/23/22 Status: Ordered Start: 12-23-2022 Mult. Vitamins by Henrique Orellana. Vitamins by Henrique, 0 Refill(s), 74.2 Start Date: 12/23/22 Status: Ordered 1 ml naloxone hydrochloride 0.4 mg/ml injection (2 sources) Opioid Antagonist Start: 10-05-2024 End: 10-06-2024 0.4 mg, IntraVENous, PRN, opioid reversal, Starting on Ricarda 10/05/24 at 2016, For oversedation/difficult to rouse, pinpoint pupils, RR [place]-3 Fatty Acids 1,000 mg capsule (15 sources) Start: 11-13-2024 End: 11-15-2024 take 1 capsule by mouth once daily [place]-3 Fatty Acids 1,000 mg capsule Discontinued 1000 mg PO daily November 13, 2024 12:00am November 15, 2024 2:40pm Start: 09-18-2024 End: 10-27-2024 take 1 capsule by mouth once daily [place]-3 Fatty Acids 1,000 mg capsule Discontinued 1000 mg PO daily September 18, 2024 1:00am October 27, 2024 12:48pm Start: 09-18-2024 [address] [facility] once daily [place]-3 Fatty Acids 1,000 mg capsule Active 1000 mg PO daily September 18, 2024 1:00am ondansetron ODT (Zofran-ODT) disintegrating tablet 4 mg (2 sources) Start: 10-05-2024 End: 10-06-2024 take 1 tablet by mouth every eight hours as needed for nausea and vomiting ondansetron ODT (Zofran-ODT) disintegrating tablet 4 mg polyethylene glycol 3350 06671 mg powder for oral solution (2 sources) Osmotic Laxative Start: 10-05-2024 End: 10-06-2024 take 17 g by mouth every twenty-four hours as needed for constipation microencapsulated potassium chloride 20 meq extended release oral tablet (5 sources) Start: 11-09-2024 End: 11-15-2024 take 1 [...] 01/16/2021 Sennosides (Senna Laxative) 8.6 mg tablet (10 sources) Start: 09-18-2024 End: 10-05-2024 take 1 tablet by mouth once daily Sennosides (Senna Laxative) 8.6 mg tablet Discontinued 8.6 mg PO daily September 18, 2024 1:00am October 05, 2024 2:15pm Start: 09-18-2024 take 1 tablet by gregg th once daily Sennosides (Senna Laxative) 8.6 mg [...] (2 times per day), First dose on Ricarda 10/05/24 at 2100 Start: 10-05-2024 End: 10-06-2024 take 100 mL intravenously every hour as needed, then take 20 mL intravenously every hour as needed 5-250 mL/hr, IntraVENous, PRN, if patient receiving piggyback infusions and maintenance fluids are not ordered OR KVO fluids to protect IV site / prevent frequent line interruptions/ long duration, Starting on Wed10/05/24 at 2009, For piggyback infusion, administer at [...] Zinc Citrate, Zinc Oxide 50 mg tablet (5 sources) Start: 11-13-2024 End: 11-15-2024 take 1 mg by mouth once daily Zinc Citrate, Zinc Oxide 50 mg tablet Discontinued mg PO DAILY November 13, 2024 12:00am November 15, 2024 2:41pm Problems Active Problems Problem Classification Problem Date Documented Da te Episodic/Chronic Abdominal hernia (20 sources) Hiatal hernia; Translations: [Diaphragmatic hernia without obstruction or gangrene] 09-06-2019 Episodic Abdominal pain (1 source) Abdominal pain; Translations: [Unspecified abdominal pain] 01-28-2025 Episodic Acquired foot deformities (18 sources) Bunion 03-09-2017 Episodic Comment on above: Left Acute bronchitis (18 sources) Acute bronchitis 11-24-2019 Episodic Anxiety disorders (20 sources) Anxiety; Translations: [Anxiety disorder, unspecified] 09-06-2019 Chronic Asthma (20 sources) Asthma; Translations: [Asthmatic bronchitis] 03-09-2017 Chronic Bacterial infection; unspecified site (1 source) Bacterial infectious disease; Translations: [Other bacterial infections of unspecified site] 10-17-2024 Episodic Cancer of bronchus; lung (20 sources) Small cell carcinoma of lung; Translations: [Malignant neoplasm of unspecified part of left bronchus or lung] Onset: 10-27-2024 10-17-2024 Chronic Cancer; other and unspecified primary (1 source) H/O: malignant neoplasm; Translations: [Personal history of malignant neoplasm of other organs and systems] 01-28-2025 Episodic Cardiac dysrhythmias (1 source) Unspecified atrial fibrillation; Translations: [Unspecified atrial fibrillation] Onset: 10-05-2024 Chronic Chronic kidney disease (19 sources) Chronic kidney disease stage 3A ; Translations: [Chronic kidney disease, stage 3a] Onset: 09-13-2024 09-13-2024 Chronic Chronic kidney disease (2 sources) Chronic kidney disease; Translations: [Chronic kidney disease, stage 3a (HCC)] Onset: 10-26-2024 Chronic obstructive pulmonary disease and bronchiectasis (20 sources) Acute exacerbation of chronic bronchitis; Translations: [Chronic obstructive pulmonary disease with (acute) exacerbation] Onset: 10-03-2024 11-18-2006 Chronic Complications of surgical procedures or medical care (8 sources) Delayed healing of surgical wound; Translations: [Other complications of procedures, not elsewhere classified, initial encounter] 12-12-2024 Episodic Conditions associated with dizziness or vertigo (6 sources) Lightheadedness; Translations: [Dizziness and giddiness] 10-21-2024 Episodic Deficiency and other anemia (5 sources) Anemia; Translations: [Anemia, unspecified] 10-31-2024 Episodic Disorders of lipid metabolism (20 sources) Hyperlipidemia; Translations: [Hyperlipidemia, unspecified] 02-18-2022 Chronic E Codes: Natural/environment (20 sources) Cat bite - wound; Translations: [Bitten by cat, initial encounter] Onset: 01-28-2024 Episodic Esophageal disorders (20 sources) Acid reflux; Translations: [Gastroesophageal reflux disease] 03-09-2017 Chronic Essential hypertension (20 sources) Hypertensive disorder; Translations: [Essential (primary) hypertension] Onset: 09-29-2023 03-09-2017 Chronic Comment on above: CONTROLLED ON MED Fever of unknown origin (11 sources) Fever 07-06-2023 Episodic Fracture of upper limb (2 sources) Closed fracture of distal phalanx of left thumb; Translations: [Displaced fracture of distal phalanx of left thumb, initial encounter for closed fracture] Onset: 11-24-2024 Episodic Headache; including migraine (20 sources) Migraine; Translations: [Migraine, unspecified, not intractable, without status migrainosus] 03-09-2017 Chronic Lymphadenitis (20 sources) Lymphadenopathy; Translations: [Enlarged lymph nodes, unspecified] Onset: 10-05-2024 10-03-2024 Episodic Maintenance chemotherapy; radiotherapy (20 sources) Patient encounter status; Translations: [Encounter for antineoplastic chemotherapy] 10-31-2024 Chronic Malignant neoplasm without specification of site (5 sources) Malignant neoplastic disease; Translations: [Malignant (primary) neoplasm, unspecified] Onset: 10-24-2024 10-24-2024 Chronic Mood disorders (20 sources) Depressive disorder; Translations: [Depression] 03-09-2017 Chronic Nonspecific chest pain (2 sources) Chest pain; Translations: [Chest pain, unspecified] Onset: 02-01-2025 01-28-2025 Episodic Nutritional deficiencies (11 sources) Vitamin D deficiency 07-06-2023 Chronic Open wounds of extremities (2 sources) Laceration of left thumb; Translations: [Laceration without foreign body of left thumb without damage to nail, initial encounter] Onset: 11-24-2024 Episodic Osteoarthritis (18 sources) Osteoarthritis 03-09-2017 Chronic Osteoporosis (20 sources) Osteoporosis; Translations: [Age-related osteoporosis without current pathological fracture] 03-09-2017 Chronic Other aftercare (1 source) Encounter for adjustment and management of vascular access device; Translations: [Encounter for adjustment and management of vascular access device] Onset: 11-21-2024 Episodic Other and ill-defined heart disease (20 sources) Mass of thoracic structure; Translations: [Other ill-defined heart diseases] Onset: 08-19-2024 10-03-2024 Chronic Comment on above: 08/2024 2.0cm x 1.9cm spherical mass Other and ill-defined heart disease (2 sources) Other ill-defined heart diseases; Translations: [Other ill-defined heart diseases] Onset: 10-03-2024 Chronic Other bone disease and musculoskeletal deformities (1 source) Disorder of bone; Translations: [Other specified disorders of bone density and structure, unspecified site] Onset: 12-30-2022 Episodic Other bone disease and musculoskeletal deformities (14 sources) Osteopenia 12-30-2022 Episodic Other circulatory disease (6 sources) Low blood pressure; Translations: [Hypotension, unspecified] 10-21-2024 Episodic Other connective tissue disease (18 sources) Muscle pain; Translations: [Myalgia and myositis, unspecified] 11-18-2006 Episodic Other connective tissue disease (1 source) Pain in limb; Translations: [Pain in unspecified limb] Onset: 02-20-2024 Episodic Other connective tissue disease (6 sources) Pain in lower limb 02-20-2024 Episodic Other gastrointestinal disorders (4 sources) Dysphagia 09-13-2024 Episodic Other gastrointestinal disorders (2 sources) Dysphagia, unspecified; Translations: [Dysphagia, unspecified] Onset: 09-13-2024 Episodic Other gastrointestinal disorders (9 sources) Constipation; Translations: [Constipation, unspecified] 12-12-2024 Episodic Other injuries and conditions due to external causes (2 sources) Traumatic AND/OR non-traumatic injury; Translations: [Other injury of unspecified body region, initial encounter] Onset: 02-04-2024 Episodic Other lower respiratory disease (15 sources) [...] nonspecific abnormal finding of lung field] Onset: 10-05-2024 09-14-2024 Episodic Other lower respiratory disease (20 sources) Hilar mass; Translations: [Other nonspecific abnormal finding of lung field] Onset: 08-19-2024 10-03-2024 Episodic Comment on above: 08/2024 6.2cm x 4.7cm Other lower respiratory disease (10 sources) History of chronic obstructive airway disease; Translations: [Personal history of other diseases of the respiratory system] 09-22-2024 Episodic Other lower respiratory disease (8 sources) Dyspnea on exertion; Translations: [Other forms of dyspnea] 10-05-2024 Episodic Other lower respiratory disease (2 sources) Shortness of breath; Translations: [Shortness of breath] Onset: 10-05-2024 Episodic Other nervous system disorders (18 sources) [...] lump, left upper limb] 01-12-2023 Episodic Other skin disorders (1 source) Bilateral localized swelling of lower legs; Translations: [Localized swelling, mass and lump, lower limb, bilateral] 01-28-2025 Episodic Other upper respiratory disease (18 sources) Seasonal allergy 09-06-2019 Chronic Other upper respiratory infections (18 sources) Sinusitis 06-28-2019 Chronic Other upper respiratory infections (19 sources) Acute upper respiratory infection; Translations: [Acute upper respiratory infection, unspecified] 06-28-2019 Episodic Basia-; endo-; and myocarditis; cardiomyopathy (except that caused by tuberculosis or sexually transmitted disease) (12 sources) Pericardial effusion; Translations: [Pericardial effusion] 10-03-2024 Episodic Pleurisy; pneumothorax; pulmonary collapse (20 sources) Pleural effusion; Translations: [Pleural effusion, not elsewhere classified] Onset: 10-05-2024 10-06-2024 Episodic Poisoning by other medications and [...] Dependent edema 01-06-2023 Episodic Residual codes; unclassified (8 sources) Bilateral lower limb edema; Translations: [Localized edema] 09-14-2024 Episodic Residual codes; unclassified (1 source) Localized edema; Translations: [Localized edema] Onset: 11-17-2024 Episodic Respiratory failure; insufficiency; arrest (adult) (8 sources) Acute hypoxemic respiratory failure; Translations: [Acute respiratory failure with hypoxia] 10-05-2024 Episodic Rheumatoid arthritis and related disease (4 sources) Rheumatoid arthritis 08-22-2023 Chronic Screening and history of mental health and substance abuse codes (20 sources) Ex-smoker; Translations: [Personal history of nicotine dependence] Onset: 09-13-2024 09-13-2024 Episodic Comment on above: smoked 40yrs 1 ppd QUIT 05/2024, SMOKED FOR 50+ YRS Secondary malignancies (20 sources) Secondary malignant neoplasm of liver; 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] 10-27-2024 Chronic Secondary malignancies (20 sources) Secondary malignant neoplasm of adrenal gland; Translations: [Secondary malignant neoplasm of unspecified adrenal gland] 10-27-2024 Chronic Secondary malignancies (2 sources) Secondary malignant neoplasm of left adrenal gland; 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] Onset: 10-31-2024 Chronic Secondary malignancies (2 sources) Secondary malignant neoplasm of liver and intrahepatic bile duct; 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] Onset: 10-31-2024 Chronic Skin and subcutaneous tissue infections (15 sources) Cellulitis of lower limb; Translations: [Cellulitis] 12-23-2022 Episodic Spondylosis; intervertebral disc disorders; other back problems (12 sources) Degeneration of intervertebral disc; Translations: [Degeneration [...] (20 sources) Thyroid nodule; Translations: [Goiter] Onset: 10-26-2024 03-09-2017 Chronic Unclassified (20 sources) Patient encounter status 04-03-2020 Unclassified (15 sources) Influenza vaccination declined 05-01-2022 Unclassified (7 sources) Drug therapy with explicit context 02-09-2024 Unclassified (1 source) Acute cough; Translations: [Acute cough] Onset: 05-31-2024 Unclassified (1 source) Other pericardial effusion (noninflammatory); Translations: [Other pericardial effusion (noninflammatory)] Onset: 10-03-2024 Unclassified (2 sources) New Patient; Translations: [New Patient] Onset: 10-03-2024 Unclassified (13 sources) Small cell carcinoma of left lung; Translations: [C34.12 - Malignant neoplasm of upper lobe, left bronchus or lung] Viral infection (20 sources) Herpes simplex of female genitalia; Translations: [Genital herpes simplex] 03-09-2017 Chronic Past or Other Problems Problem Classification Problem Date Documented Date Episodic/Chronic Administrative/socia l admission (20 sources) Patient encounter status; Translations: [Counseling, unspecified] Onset: 10-27-2024 10-27-2024 Episodic Allergic reactions (8 sources) Radiation-induced dermatosis; Translations: [Other skin changes due to chronic exposure to nonionizing radiation] Onset: 11-08-2008 11-08-2008 Episodic E Codes: Adverse effects of medical drugs (1 source) Adverse effect of antineoplastic and immunosuppressive drugs, initial encounter; Translations: [Adverse effect of antineoplastic and immunosuppressive drugs, initial encounter] Onset: 10-27-2024 Episodic Fluid and electrolyte disorders (11 sources) Hypokalemia; Translations: [Hypokalemia] Onset: 11-09-2024 11-09-2024 Episodic Nausea and vomiting (7 sources) Nausea; Translations: [Nausea] Onset: 10-27-2024 10-21-2024 Episodic Other and unspecified benign neoplasm (7 [...] seborrheic keratosis] Onset: 11-08-2008 11-08-2008 Episodic Unclassified (12 sources) Contusion of left lower leg, initial encounter 05-01-2020 Unclassified (4 sources) Pleural mass 10-17-2024 Unclassified (1 source) Other pericardial effusion (noninflammatory); Translations: [Other pericardial effusion (noninflammatory)] Onset: 10-03-2024 Viral infection (7 sources) Verruca vulgaris; Translations: [Viral wart, unspecified] Onset: 11-08-2008 11-08-2008 Episodic Results Test Name Value Interpretation Reference Range Facility Abdomen/Pelvis W IV Cont ONL Yon 02-11-2025 Abdomen/Pelvis W IV Cont ONLY Normal [facility] CBC W/Diff, Automatedon - Absolute Lymph 0.90 X10 3/uL Normal 0.83-4.51 [facility] Comment on above: Performed By: #### L 100.0100, L501.2450, L500.4050 ####[facility] [address] [place], [address] Absolute Neut 4.0 X10 3/uL Normal 2.0-7.7 [facility] Comment on above: Performed By: #### L 100.0100, L501.2450, L500.4050 ####[facility] [address] [place], [address] Basophils/100 WBC (Bld) 0.4 % Normal 0-1 [facility] Comment on above: Performed By: #### L 100.0100, L501.2450, L500.4050 ####[facility] [address] [place], [address] Eosinophils/100 WBC (Bld) 0.0 % Normal 0-5 [facility] Comment on above: Performed By: #### L 100.0100, L501.2450, L500.4050 ####[facility] [address] [place], [address] Erythrocyte distribution width (RBC) [Ratio] 16.8 % High 11.6-14.6 [facility] Comment on above: Performed By: #### L 100.0100, L501.2450, L500.4050 ####[facility] [address] [place], [address] Hematocrit (Bld) [Volume fraction] 37.0 % Normal 37-47 [facility] Comment on above: Performed By: #### L 100.0100, L501.2450, L500.4050 ####[facility] [address] [place], [address] Hemoglobin (Bld) [Mass/Vol] 12.0 g/dL Normal 12.0-15.0 [facility] Comment on above: Performed By: #### L 100.0100, L501.2450, L500.4050 ####[facility] [address] [place], [address] IG% 0.400 Normal 0.0-0.9 [facility] Comment on above: Result Comment: IG% - Immature Granulocytes (promyelocytes, myelocytes andmetamyelocytes) > 1% indicates that a LEFT SHIFT is Present. Performed By: #### L 100.0100, L501.2450, L500.4050 ####[facility] [address] [place], [address] Lymphocytes/100 WBC (Bld) 16.0 % Low 19-41 [facility] Comment on above: Performed By: #### L 100.0100, L501.2450, L500.4050 ####[facility] [address] [place], [address] MCH (RBC) [Entitic mass] 30.8 pg Normal 27.0-32.0 [facility] Comment on above: Performed By: #### L 100.0100, L501.2450, L500.4050 ####[facility] [address] [place], [address] MCHC (RBC) [Mass/Vol] 32.4 g/dL Normal 32-36 [facility] Comment on above: Performed By: #### L 100.0100, L501.2450, L500.4050 ####[facility] [address] [place], [address] MCV (RBC) [Entitic vol] 95.1 fL Normal 81-99 [facility] Comment on above: Performed By: #### L 100.0100, L501.2450, L500.4050 ####[facility] [address] [place], [address] Monocytes/100 WBC (Bld) 11.7 % High 0-10 [facility] Comment on above: Performed By: #### L 100.0100, L501.2450, L500.4050 ####[facility] [address] [place], [address] Neutrophils/100 WBC (Bld) 71.5 % High 47-70 [facility] Comment on above: Performed By: #### L 100.0100, L501.2450, L500.4050 ####[facility] [address] [place], [address] Nucleated RBC (Bld) [#/Vol] 0 10*3/uL Normal 0-5 [facility] Comment on above: Performed By: #### L 100.0100, L501.2450, L500.4050 ####[facility] [address] [place], [address] Platelet mean volume (Bld) [Entitic vol] 8.7 fL Normal 6.2-12.0 [facility] Comment on above: Performed By: #### L 100.0100, L501.2450, L500.4050 ####[facility] [address] [place], [address] Platelets (Bld) [#/Vol] 191 10*3/uL Normal 150-450 [facility] Comment on above: Performed By: #### L 100.0100, L501.2450, L500.4050 ####[facility] [address] [place], [address] RBC (Bld) [#/Vol] 3.89 10*6/uL Low 4.2-5.4 [facility] Comment on above: Performed By: #### L 100.0100, L501.2450, L500.4050 ####[facility] [address] [place], [address] RDW SD 58.0 fl High 35.1-43.9 [facility] Comment on above: Performed By: #### L 100.0100, L501.2450, L500.4050 ####[facility] [address] [place], [address] WBC (Bld) [#/Vol] 5.6 10*3/uL Normal 4.4-11.0 [facility] Comment on above: Performed By: #### L 100.0100, L501.2450, L500.4050 ####[facility] [address] [place], [address] Comprehensive Metabolic [facility] 02-11-2025 Albumin [Mass/Vol] 3.1 g/dL Low 3.4-4.8 [facility] Comment on above: Performed By: #### L 100.0100, L501.2450, L500.4050 ####[facility] [address] [place], [address] Albumin/Globulin [Mass ratio] 1.5 {ratio} Normal 0.9-2.4 [facility] Comment on above: Performed By: #### L 100.0100, L501.2450, L500.4050 ####[facility] [address] [place], [address] ALK PHOS 87 U/L Normal 35-104 [facility] Comment on above: Performed By: #### L 100.0100, L501.2450, L500.4050 ####[facility] [address] [place], [address] ALT [Catalytic activity/Vol] 21 U/L Normal <=34 [facility] Comment on above: Performed By: #### L 100.0100, L501.2450, L500.4050 ####[facility] [address] [place], [address] AST [Catalytic activity/Vol] 23 U/L Normal <=31 [facility] Comment on above: Performed By: #### L 100.0100, L501.2450, L500.4050 ####[facility] [address] [place], [address] Bilirubin [Mass/Vol] 0.31 mg/dL Normal 0.00-1.30 [facility] Comment on above: Performed By: #### L 100.0100, L501.2450, L500.4050 ####[facility] [address] [place], [address] BUN/CRE 15.3 RATIO Normal 10-20 [facility] Comment on above: Performed By: #### L 100.0100, L501.2450, L500.4050 ####[facility] [address] [place], [address] Calcium [Mass/Vol] 8.3 mg/dL Normal 7.6-11.0 [facility] Comment on above: Performed By: #### L 100.0100, L501.2450, L500.4050 ####[facility] [address] [place], [address] Chloride [Moles/Vol] 100 mmol/L Normal 98-108 [facility] Comment on above: Performed By: #### L 100.0100, L501.2450, L500.4050 ####[facility] [address] [place], [address] CO2 [Moles/Vol] 26.7 mmol/L Normal 21.0-32.0 [facility] Comment on above: Performed By: #### L 100.0100, L501.2450, L500.4050 ####[facility] [address] [place], [address] Creatinine [Mass/Vol] 0.97 mg/dL Normal 0.70-1.20 [facility] Comment on above: Performed By: #### L 100.0100, L501.2450, L500.4050 ####[facility] [address] [place], [address] ECRCL 46.45 ml/min Low 50-250 [facility] Comment on above: Performed By: #### L 100.0100, L501.2450, L500.4050 ####[facility] [address] [place], [address] GAP 11 Normal 5-15 [facility] Comment on above: Performed By: #### L 100.0100, L501.2450, L500.4050 ####[facility] [address] [place], [address] GFR/1.73 sq M.predicted among non-blacks MDRD (S/P/Bld) [Vol rate/Area] 62 mL/min/{1.73_m2} Normal >60 [facility] Comment on above: Result Comment: mL/m in/1.73m2 CKD-EPI Creatinine Equation (2020) Performed By: #### L 100.0100, L501.2450, L500.4050 ####[facility] [address] [place], [address] Globulin (S) [Mass/Vol] 2.1 g/dL Low 2.2-4.2 [facility] Comment on above: Performed By: #### L 100.0100, L501.2450, L500.4050 ####[facility] [address] [place], [address] Glucose [Mass/Vol] 105 mg/dL High 70-99 [facility] Comment on above: Performed By: #### L 100.0100, L501.2450, L500.4050 ####[facility] [address] [place], [address] Potassium [Moles/Vol] 3.1 mmol/L Low 3.3-5.1 [facility] Comment on above: Performed By: #### L 100.0100, L501.2450, L500.4050 ####[facility] [address] [place], [address] Sodium [Moles/Vol] 138 mmol/L Normal 133-145 [facility] Comment on above: Performed By: #### L 100.0100, L501.2450, L500.4050 ####[facility] [address] [place], [address] T PROT 5.2 g/dL Low 5.9-8.4 [facility] Comment on above: Performed By: #### L 100.0100, L501.2450, L500.4050 ####[facility] [address] [place], [address] Urea nitrogen [Mass/Vol] 15 mg/dL Normal 4-19 [facility] Comment on above: Performed By: #### L 100.0100, L501.2450, L500.4050 ####[facility] [address] [place], [address] Lipaseon 02-11-2025 Lipase [Catalytic activity/Vol] 10 U/L Low 13-75 [facility] Comment on above: Result Comment: Pleniki hinds note:LIPASE revised reference range effective 22.New Lipase methodology. Expected to produce lower valuesthan the previous assay method.NEW Reference Range: 13 - 75 U/L Performed By: #### L 100.0100, L501.2450, L500.4050 ####[facility] [address] [place], [address] Magnesiumon 02-11-2025 Magnesium [Mass/Vol] 2.2 mg/dL Normal 1.5-2.2 [facility] Comment on above: Performed By: #### L 501.5200 ####[facility] [address] [place], [address] Urinalysis, Completeon 02-11 BACTERIA 2+ /hpf Normal None Seen [facility] Comment on above: Order Comment: CLEAN CATCH Performed By: #### L 400.0001 ####[facility] [address] [place], [address] Mucus Ql (Urine sed) 1+ /hpf Normal [facility] Comment on above: Order Comment: CLEAN CATCH Performed By: #### L 400.0001 ####[facility] [address] [place], [address] WBC 0-5 SEEN Normal 0-5 [facility] Comment on above: Order Comment: CLEAN CATCH Performed By: #### L 400.0001 ####[facility] [address] [place], [address] EPI,SQUAMOUS 0 SEEN Normal 5-10 [facility] Comment on above: Order Comment: CLEAN CATCH Performed By: #### L 400.0001 ####[facility] [address] [place], [address] RBC 0 SEEN Normal 0-5 [facility] Comment on above: Order Comment: CLEAN CATCH Performed By: #### L 400.0001 ####[facility] [address] [place], [address] 12 Lead EKGon 01-28-2025 12 Lead EKG Normal [facility] Abdomen/Pelvis W IV Cont ONL Yon 01-28-2025 Abdomen/Pelvis W IV Cont ONLY Normal [facility] Absolute lymphocyte countOrd ered By: Bernarda Win on 01-28-2025 Lymphocytes Auto (Unsp spec) [#/Vol] 1.31 10*3/uL 0.83-4.51 [facility] Absolute neutrophil countOrd ered By: Bernarda Win on 01-28-2025 Neutrophils (Bld) [#/Vol] 3.1 10*3/uL 2.0-7.7 [facility] Anion gap in Serum or Plasma Ordered By: Bernarda Win on 01-28-2025 Anion gap [Moles/Vol] 12 mmol/L 5-15 [facility] Automated lymphocyte count a s percentage of total leukocytesOrdered By: Bernarda Win on 01-28-2025 Lymphocytes/100 WBC Auto (Unsp spec) 24.7 % 19-41 [facility] BUN/creatinine ratioOrdered By: Bernarda Win on 01-28-2025 Urea nitrogen/Creatinine [Mass ratio] 13.3 mg/mg 10-20 [facility] Basophil percentageOrdered B y: Bernarda Win on 01-28-2025 Basophils/100 WBC (Bld) 0.6 % 0-1 [facility] Bilirubin Test strip Ql (U)O rdered By: Bernarda Win on 01-28-2025 Bilirubin Ql (U) Negative Negative [facility] Bilirubin, totalOrdered By: Bernarda Win on 01-28-2025 Bilirubin [Mass/Vol] 0.19 mg/dL 0.00-1.30 [facility] Blood manual differential co mment interpretation (narrative result)Ordered By: Bernarda Win on 01-28-2025 Manual differential comment Luiz (Bld) [Interp] SCANNED [facility] CBC W/Diff, Automatedon 01-16 Anisocytosis Ql (Bld) 2+ Normal [facility] Comment on above: Performed By: #### L 501.4021, L501.2450, L100.0100, L500.4050 ####[facility] [address] [place], [address] MICROCYTIC 1+ Normal [facility] Comment on above: Performed By: #### L 501.4021, L501.2450, L100.0100, L500.4050 ####[facility] [address] [place], [address] OVALOCYTE 1+ Normal [facility] Comment on above: Performed By: #### L 501.4021, L501.2450, L100.0100, L500.4050 ####[facility] [address] [place], [address] HYPOCHROMASIA RARE Normal [facility] Comment on above: Performed By: #### L 501.4021, L501.2450, L100.0100, L500.4050 ####[facility] [address] [place], [address] SMEAR COMMENT SCANNED Normal [facility] Comment on above: Performed By: #### L 501.4021, L501.2450, L100.0100, L500.4050 ####[facility] [address] [place], [address] CTA Chest W/WO Contraston CTA Chest W/WO Contrast Normal [facility] Carbon dioxide, total [Moles /volume] in Central venous bloodOrdered By: Bernarda Win on 01-28-2025 CO2 [Moles/Vol] 26.1 mmol/L 21.0-32.0 [facility] Chloride assayOrdered By: Dalila Win on 01-28-2025 Chloride [Moles/Vol] 100 mmol/L 98-108 [facility] Comprehensive Metabolic Prof ilon 01-28-2025 Albumin [Mass/Vol] 3.6 g/dL Normal 3.4-4.8 [facility] Comment on above: Performed By: #### L 501.4021, L501.2450, L100.0100, L500.4050 ####[facility] [address] [place], [address] Albumin/Globulin [Mass ratio] 1.6 {ratio} Normal 0.9-2.4 [facility] Comment on above: Performed By: #### L 501.4021, L501.2450, L100.0100, L500.4050 ####[facility] [address] [place], [address] ALK PHOS 83 U/L Normal 35-104 [facility] Comment on above: Performed By: #### L 501.4021, L501.2450, L100.0100, L500.4050 ####[facility] [address] [place], [address] ALT [Catalytic activity/Vol] 23 U/L Normal <=34 [facility] Comment on above: Performed By: #### L 501.4021, L501.2450, L100.0100, L500.4050 ####[facility] [address] [place], [address] AST [Catalytic activity/Vol] 22 U/L Normal <=31 [facility] Comment on above: Performed By: #### L 501.4021, L501.2450, L100.0100, L500.4050 ####[facility] [address] [place], [address] Bilirubin [Mass/Vol] 0.19 mg/dL Normal 0.00-1.30 [facility] Comment on above: Performed By: #### L 501.4021, L501.2450, L100.0100, L500.4050 ####[facility] [address] [place], [address] BUN/CRE 13.3 RATIO Normal 10-20 [facility] Comment on above: Performed By: #### L 501.4021, L501.2450, L100.0100, L500.4050 ####[facility] [address] [place], [address] Calcium [Mass/Vol] 8.8 mg/dL Normal 7.6-11.0 [facility] Comment on above: Performed By: #### L 501.4021, L501.2450, L100.0100, L500.4050 ####[facility] [address] [place], [address] Chloride [Moles/Vol] 100 mmol/L Normal 98-108 [facility] Comment on above: Performed By: #### L 501.4021, L501.2450, L100.0100, L500.4050 ####[facility] [address] [place], [address] CO2 [Moles/Vol] 26.1 mmol/L Normal 21.0-32.0 [facility] Comment on above: Performed By: #### L 501.4021, L501.2450, L100.0100, L500.4050 ####[facility] [address] [place], [address] Creatinine [Mass/Vol] 0.83 mg/dL Normal 0.70-1.20 [facility] Comment on above: Performed By: #### L 501.4021, L501.2450, L100.0100, L500.4050 ####[facility] [address] [place], [address] ECRCL 56.95 ml/min Normal 50-250 [facility] Comment on above: Performed By: #### L 501.4021, L501.2450, L100.0100, L500.4050 ####[facility] [address] [place], [address] GAP 12 Normal 5-15 [facility] Comment on above: Performed By: #### L 501.4021, L501.2450, L100.0100, L500.4050 ####[facility] [address] [place], [address] GFR/1.73 sq M.predicted among non-blacks MDRD (S/P/Bld) [Vol rate/Area] 74 mL/min/{1.73_m2} Normal >60 [facility] Comment on above: Result Comment: mL/m in/1.73m2 CKD-EPI Creatinine Equation (2020) Performed By: #### L 501.4021, L501.2450, L100.0100, L500.4050 ####[facility] [address] [place], [address] Globulin (S) [Mass/Vol] 2.3 g/dL Normal 2.2-4.2 [facility] Comment on above: Performed By: #### L 501.4021, L501.2450, L100.0100, L500.4050 ####[facility] [address] [place], [address] Glucose [Mass/Vol] 111 mg/dL High 70-99 [facility] Comment on above: Performed By: #### L 501.4021, L501.2450, L100.0100, L500.4050 ####[facility] [address] [place], [address] Potassium [Moles/Vol] 3.5 mmol/L Normal 3.3-5.1 [facility] Comment on above: Performed By: #### L 501.4021, L501.2450, L100.0100, L500.4050 ####[facility] [address] [place], [address] Sodium [Moles/Vol] 137 mmol/L Normal 133-145 [facility] Comment on above: Performed By: #### L 501.4021, L501.2450, L100.0100, L500.4050 ####[facility] [address] [place], [address] T PROT 5.9 g/dL Normal 5.9-8.4 [facility] Comment on above: Performed By: #### L 501.4021, L501.2450, L100.0100, L500.4050 ####[facility] [address] [place], [address] Urea nitrogen [Mass/Vol] 11 mg/dL Normal 4-19 [facility] Comment on above: Performed By: #### L 501.4021, L501.2450, L100.0100, L500.4050 ####[facility] [address] [place], [address] Emergency Department Summary on 01-28-2025 Emergency Department Summary Normal [facility] Eosinophil percentageOrdered By: Bernarda Win on 01-28-2025 Eosinophils/100 WBC (Bld) 0.0 % 0-5 [facility] Erythrocyte distribution wid th ratioOrdered By: Bernarda Win on 01-28-2025 Erythrocyte distribution width (RBC) [Ratio] 21.9 % High 11.6-14.6 [facility] Erythrocyte distribution wid th standard deviationOrdered By: Bernarda Win on 01-28-2025 Erythrocyte distribution width (RBC) [Ratio] 76.0 fl High 35.1-43.9 [facility] Glomerular filtration rate ( GFR) estimation/1.73 sq m using serum, plasma, or whole bOrdered By: Bernarda Win on 01-28-2025 GFR/1.73 sq M.predicted among non-blacks MDRD (S/P/Bld) [Vol rate/Area] 74 mL/min/{1.73_m2} >60 [facility] Comment on above: mL/min/1.73m2 CKD-EP I Creatinine Equation (2020) Hematocrit Auto (Bld) [Volum e fraction]Ordered By: Bernarda Win on 01-28-2025 Hematocrit (Bld) [Volume fraction] 31.2 % Low 37-47 [facility] Hemoglobin measurementOrdere d By: Bernarda Win on 01-28-2025 Hemoglobin (Bld) [Mass/Vol] 10.2 g/dL Low 12.0-15.0 [facility] Hypochromatic red blood cell detectionOrdered By: Bernarda Win on 01-28-2025 Hypochromia Ql (Bld) RARE [facility] Immature granulocytes/100 WB C Auto (Bld)Ordered By: Bernarda Win on 01-28-2025 Immature granulocytes/100 WBC (Bld) 0.400 % 0.0-0.9 [facility] Comment on above: IG% - Immature Granu locytes (promyelocytes, myelocytes and metamyelocytes) > 1% indicates that a LEFT SHIFT is Present. Ketones Test strip Ql (U)Ord ered By: Bernarda Win on 01-28-2025 Ketones Ql (U) Negative Negative [facility] L499.0042on 01-28-2025 Trop T High Sen 16 ng/L High <=14 [facility] Comment on above: Performed By: #### L 499.0042 ####[facility] [address] [place], [address] L501.4021on 01-28-2025 Trop T High Sen 13 ng/L Normal <=14 [facility] Comment on above: Performed By: #### L 501.4021, L501.2450, L100.0100, L500.4050 ####[facility] [address] [place], [address] L503.7505on 01-28-2025 Natriuretic peptide B (Bld) [Mass/Vol] 167 pg/mL Normal <=900 [facility] Comment on above: Result Comment: Hear t Failure Unlikely: < 300 pg/mLHeart Failure Likely< 50 Years: > 450 pg/mL50-75 Years: > 900 pg/mL>75 Years: > 1800 pg/mL Performed By: #### L 503.7505 ####[facility] [address] [place], [address] Laboratory - Chemistry and C hemistry - challengeOrdered By: Bernarda Win on 01-28-2025 AST [Catalytic activity/Vol] 22 U/L <32 [facility] Laboratory - Hematology and Cell countsOrdered By: Bernarda Win on 01-28-2025 Anisocytosis Ql (Bld) 2+ [facility] Lipaseon 01-28-2025 Lipase [Catalytic activity/Vol] 10 U/L Low 13-75 [facility] Comment on above: Result Comment: Moira hinds note:LIPASE revised reference range effective 22.New Lipase methodology. Expected to produce lower valuesthan the previous assay method.NEW Reference Range: 13 - 75 U/L Performed By: #### L 501.4021, L501.2450, L100.0100, L500.4050 ####[facility] [address] [place], [address] Lipase measurementOrdered By : Bernarda Win on 01-28-2025 Lipase [Catalytic activity/Vol] 10 U/L Low 13-75 [facility] Comment on above: Please note:LIPASE r evised reference range effective 22. New Lipase methodology. Expected to produce lower values than the previous assay method. NEW Reference Range: 13 - 75 U/L MCV (mean corpuscular volume ) determinationOrdered By: Bernarda Win on 01-28-2025 MCV (RBC) [Entitic vol] 94.5 fL 81-99 [facility] Mean corpuscular hemoglobin (MCH) determinationOrdered By: Bernarda Win on 01-28-2025 MCH (RBC) [Entitic mass] 30.9 pg 27.0-32.0 [facility] Mean corpuscular hemoglobin concentration (MCHC) determinationOrdered By: Bernarda Win on 01-28-2025 MCHC (RBC) [Mass/Vol] 32.7 g/dL 32-36 [facility] Mean platelet volume determi nationOrdered By: Bernarda Win on 01-28-2025 Platelet mean volume (Bld) [Entitic vol] 8.6 fL 6.2-12.0 [facility] Microscopic analysis of urin e for red blood cells (RBC)Ordered By: Bernarda Win on 01-28-2025 Microscopic analysis of urine for red blood cells (RBC) 0-5 SEEN /hpf 0-5 [facility] Monocyte percentageOrdered B y: Bernarda Win on 01-28-2025 Monocytes/100 WBC (Bld) 16.2 % High 0-10 [facility] Mucus LM Ql (Urine sed)Order ed By: Bernarda Win on 01-28-2025 Mucus Ql (Urine sed) 0 SEEN /hpf [facility] Natriuretic peptide.B prohor mikala N-Terminal [Mass/volume] in Serum or PlasmaOrdered By: Bernarda Win on 01-28-2025 Natriuretic peptide.B prohormone N-Terminal [Mass/Vol] 167 pg/mL <900 [facility] Comment on above: Heart Failure Unlike ly: < 300 pg/mLHeart Failure Likely< 50 Years: > 450 pg/mL50-75 Years: > 900 pg/mL>75 Years: > 1800 pg/mL Neutrophil percentageOrdered By: Bernarda Win on 01-28-2025 Neutrophils/100 WBC (Bld) 58.1 % 47-70 [facility] Nitrite Test strip Ql (U)Ord ered By: Bernarda Win on 01-28-2025 Nitrite Ql (U) Negative Negative [facility] Nucleated red blood cell per centageOrdered By: Bernarda Win on 01-28-2025 Nucleated RBC/100 WBC (Bld) [Ratio] 0 % 0-5 [facility] Ovalocyte detectionOrdered B y: Bernarda Win on 01-28-2025 Ovalocytes LM Ql (Bld) 1+ [facility] Platelet countOrdered By: Dalila Win on 01-28-2025 Platelets (Bld) [#/Vol] 439 10*3/uL 150-450 [facility] Potassium measurement (mass/ volume)Ordered By: Bernarda Win on 01-28-2025 Potassium (Unsp spec) [Mass/Vol] 3.5 mmol/L 3.3-5.1 [facility] Protein Test strip Ql (U)Ord ered By: Bernarda Win on 01-28-2025 Protein Ql (U) 15 mg/dl High Negative [facility] RBC Auto (Bld) [#/Vol]Ordere d By: Bernarda Win on 01-28-2025 RBC (Bld) [#/Vol] 3.30 10*6/uL Low 4.2-5.4 [facility] Serum creatinine measurement (mass/volume)Ordered By: Bernarda Win on 01-28-2025 Creatinine [Mass/Vol] 0.83 mg/dL 0.70-1.20 [facility] Serum globulin measurementOr dered By: Bernarda Win on 01-28-2025 Globulin (S) [Mass/Vol] 2.3 g/dL 2.2-4.2 [facility] Serum glucose measurement (m ass/volume)Ordered By: Bernarda Win on 01-28-2025 Glucose [Mass/Vol] 111 mg/dL High 70-99 [facility] Serum or plasma alanine vicente otransferase (ALT) measurementOrdered By: Bernarda Win on 01-28-2025 ALT [Catalytic activity/Vol] 23 U/L <35 [facility] Serum or plasma albumin usman urement (mass/volume)Ordered By: Bernarda Win on 01-28-2025 Albumin [Mass/Vol] 3.6 g/dL 3.4-4.8 [facility] Serum or plasma albumin/glob ulin mass ratioOrdered By: Bernarda Win 01-28-2025 Albumin/Globulin [Mass ratio] 1.6 {ratio} 0.9-2.4 [facility] Serum or plasma alkaline amrcela sphatase measurementOrdered By: Bernarda Win 01-28-2025 ALP [Catalytic activity/Vol] 83 U/L 35-104 [facility] Serum or plasma calcium usman urement (mass/volume)Ordered By: Bernarda Win 01-28-2025 Calcium [Mass/Vol] 8.8 mg/dL 7.6-11.0 [facility] Serum or plasma urea nitroge n measurement (mass/volume)Ordered By: Bernarda Win on 01-28-2025 Urea nitrogen [Mass/Vol] 11 mg/dL 4-19 [facility] Sodium levelOrdered By: David Win on 01-28-2025 Sodium [Moles/Vol] 137 mmol/L 133-145 [facility] Squamous epithelial cells de tection in urine sediment by light microscopyOrdered By: Bernarda Win on 01-28-2025 Epithelial cells.squamous LM Ql (Urine sed) 0-5 SEEN /hpf 5-10 [facility] Total proteinOrdered By: Sanjeev Win on 01-28-2025 Protein [Mass/Vol] 5.9 g/dL 5.9-8.4 [facility] Troponin T.cardiac [Mass/vol ume] in Serum or Plasma by High sensitivity methodOrdered By: Bernarda Win on 01-28-2025 Troponin T.cardiac High sensitivity method [Mass/Vol] 16 ng/L High <14 [facility] Troponin T.cardiac High sensitivity method [Mass/Vol] 13 ng/L <14 [facility] Comment on above: Delta: 17 on 5-1440 Urinalysis, Completeon 01-28 EPI,SQUAMOUS 0-5 SEEN Normal 5-10 [facility] Comment on above: Order Comment: CLEAN CATCH Performed By: #### L 400.0001 ####[facility] [address] [place], [address] RBC 0-5 SEEN Normal 0-5 [facility] Comment on above: Order Comment: CLEAN CATCH Performed By: #### L 400.0001 ####[facility] [address] [place], [address] WBC 0-5 SEEN Normal 0-5 [facility] Comment on above: Order Comment: CLEAN CATCH Performed By: #### L 400.0001 ####[facility] [address] [place], [address] BACTERIA 0 SEEN Normal None Seen [facility] Comment on above: Order Comment: CLEAN CATCH Performed By: #### L 400.0001 ####[facility] [address] [place], [address] Mucus Ql (Urine sed) 0 SEEN Normal [facility] Comment on above: Order Comment: CLEAN CATCH Performed By: #### L 400.0001 ####[facility] [address] [place], [address] Urine clarityOrdered By: Sanjeev Win on 01-28-2025 Clarity (U) Clear Clear [facility] Urine color determinationOrd ered By: Bernarda Win on 01-28-2025 Color (U) Yellow Yellow [facility] Urine glucose detectionOrder ed By: Bernarda Win on 01-28-2025 Glucose Ql (U) Normal mg/dl Normal [facility] Urine leukocyte esterase det ection by dipstickOrdered By: Bernarda Win on 01-28-2025 Leukocyte esterase Test strip Ql (U) Negative Negative [facility] Urine pHOrdered By: Yun Win on 01-28-2025 pH (U) 6.0 [pH] 5.0 - 8.0 [facility] Urine sediment bacteria coun t by microscopy (number/high power field)Ordered By: Bernarda Win on 01-28-2025 Bacteria LM.HPF (Urine sed) [#/Area] 0 /[HPF] None Seen [facility] Urine specific gravity measu rementOrdered By: Bernarda Win on 01-28-2025 Specific gravity (U) [Rel density] 1.020 1.002-1.030 [facility] Urine urobilinogen measureme ntOrdered By: Bernarda Win on 01-28-2025 Urobilinogen Ql (U) Normal mg/dl Normal [facility] White blood cell (WBC) count Ordered By: Bernarda Win on 01-28-2025 WBC (Bld) [#/Vol] 5.3 10*3/uL 4.4-11.0 [facility] White blood cell countOrdere d By: Bernarda Win on 01-28-2025 White blood cell count 0-5 SEEN /hpf 0-5 [facility] Absolute lymphocyte countOrd ered By: Alis Chance on 01-23-2025 Lymphocytes Auto (Unsp spec) [#/Vol] 1.12 10*3/uL 0.83-4.51 [facility] Absolute neutrophil countOrd ered By: Alis Chance on 01-23-2025 Neutrophils (Bld) [#/Vol] 4.4 10*3/uL 2.0-7.7 [facility] Anion gap in Serum or Plasma Ordered By: Alis Chance on 01-23-2025 Anion gap [Moles/Vol] 10 mmol/L 5-15 [facility] Automated lymphocyte count a s percentage of total leukocytesOrdered By: Alis Chance on 01-23-2025 Lymphocytes/100 WBC Auto (Unsp spec) 18.2 % Low 19-41 [facility] BUN/creatinine ratioOrdered By: Alis Chance on 01-23-2025 Urea nitrogen/Creatinine [Mass ratio] 9.4 mg/mg Low 10-20 [facility] Basophil percentageOrdered B y: Alis Chance on 01-23-2025 Basophils/100 WBC (Bld) 0.3 % 0-1 [facility] Bilirubin, totalOrdered By: Alis Chance on 01-23-2025 Bilirubin [Mass/Vol] 0.19 mg/dL 0.00-1.30 [facility] CBC W/Diff, Automatedon Anisocytosis Ql (Bld) 2+ Normal [facility] Comment on above: Performed By: #### L 500.4050, L100.0100 ####[facility] [address] [place], [address] Carbon dioxide, total [Moles /volume] in Central venous bloodOrdered By: Alis Chance on 01-23-2025 CO2 [Moles/Vol] 24.2 mmol/L 21.0-32.0 [facility] Chloride assayOrdered By: Gretchen Cahnce on 01-23-2025 Chloride [Moles/Vol] 106 mmol/L 98-108 [facility] Comprehensive Metabolic Prof ilon 01-23-2025 Albumin [Mass/Vol] 3.6 g/dL Normal 3.4-4.8 [facility] Comment on above: Performed By: #### L 500.4050, L100.0100 ####[facility] [address] [place], [address] Albumin/Globulin [Mass ratio] 1.9 {ratio} Normal 0.9-2.4 [facility] Comment on above: Performed By: #### L 500.4050, L100.0100 ####[facility] [address] [place], [address] ALK PHOS 81 U/L Normal 35-104 [facility] Comment on above: Performed By: #### L 500.4050, L100.0100 ####[facility] [address] [place], [address] ALT [Catalytic activity/Vol] 17 U/L Normal <=34 [facility] Comment on above: Performed By: #### L 500.4050, L100.0100 ####[facility] [address] [place], [address] AST [Catalytic activity/Vol] 19 U/L Normal <=31 [facility] Comment on above: Performed By: #### L 500.4050, L100.0100 ####[facility] [address] [place], [address] Bilirubin [Mass/Vol] 0.19 mg/dL Normal 0.00-1.30 [facility] Comment on above: Performed By: #### L 500.4050, L100.0100 ####[facility] [address] [place], [address] BUN/CRE 9.4 RATIO Low 10-20 [facility] Comment on above: Performed By: #### L 500.4050, L100.0100 ####[facility] [address] [place], [address] Calcium [Mass/Vol] 8.7 mg/dL Normal 7.6-11.0 [facility] Comment on above: Performed By: #### L 500.4050, L100.0100 ####[facility] [address] [place], [address] Chloride [Moles/Vol] 106 mmol/L Normal 98-108 [facility] Comment on above: Performed By: #### L 500.4050, L100.0100 ####[facility] [address] [place], [address] CO2 [Moles/Vol] 24.2 mmol/L Normal 21.0-32.0 [facility] Comment on above: Performed By: #### L 500.4050, L100.0100 ####[facility] [address] [place], [address] Creatinine [Mass/Vol] 0.78 mg/dL Normal 0.70-1.20 [facility] Comment on above: Performed By: #### L 500.4050, L100.0100 ####[facility] [address] [place], [address] ECRCL 59.32 ml/min Normal 50-250 [facility] Comment on above: Performed By: #### L 500.4050, L100.0100 ####[facility] [address] [place], [address] GAP 10 Normal 5-15 [facility] Comment on above: Performed By: #### L 500.4050, L100.0100 ####[facility] [address] [place], [address] GFR/1.73 sq M.predicted among non-blacks MDRD (S/P/Bld) [Vol rate/Area] 81 mL/min/{1.73_m2} Normal >60 [facility] Comment on above: Result Comment: mL/m in/1.73m2 CKD-EPI Creatinine Equation (2020) Performed By: #### L 500.4050, L100.0100 ####[facility] [address] [place], [address] Globulin (S) [Mass/Vol] 1.9 g/dL Low 2.2-4.2 [facility] Comment on above: Performed By: #### L 500.4050, L100.0100 ####[facility] [address] [place], [address] Glucose [Mass/Vol] 98 mg/dL Normal 70-99 [facility] Comment on above: Performed By: #### L 500.4050, L100.0100 ####[facility] [address] [place], [address] Potassium [Moles/Vol] 3.9 mmol/L Normal 3.3-5.1 [facility] Comment on above: Performed By: #### L 500.4050, L100.0100 ####[facility] [address] [place], [address] Sodium [Moles/Vol] 140 mmol/L Normal 133-145 [facility] Comment on above: Performed By: #### L 500.4050, L100.0100 ####[facility] [address] [place], [address] T PROT 5.5 g/dL Low 5.9-8.4 [facility] Comment on above: Performed By: #### L 500.4050, L100.0100 ####[facility] [address] [place], [address] Urea nitrogen [Mass/Vol] 7 mg/dL Normal 4-19 [facility] Comment on above: Performed By: #### L 500.4050, L100.0100 ####[facility] [address] [place], [address] Eosinophil percentageOrdered By: [facility] Robson on 01-23-2025 Eosinophils/100 WBC (Bld) 0.0 % 0-5 [facility] Erythrocyte distribution wid th ratioOrdered By: [facility] on 01-23-2025 Erythrocyte distribution width (RBC) [Ratio] 23.9 % High 11.6-14.6 [facility] Erythrocyte distribution wid th standard deviationOrdered By: [facility] on 01-23-2025 Erythrocyte distribution width (RBC) [Ratio] 84.6 fl High 35.1-43.9 [facility] Glomerular filtration rate ( GFR) estimation/1.73 sq m using serum, plasma, or whole bOrdered By: [facility] on 01-23-2025 GFR/1.73 sq M.predicted among non-blacks MDRD (S/P/Bld) [Vol rate/Area] 81 mL/min/{1.73_m2} >60 [facility] Comment on above: mL/min/1.73m2 CKD-EP I Creatinine Equation (2020) Hematocrit Auto (Bld) [Volum e fraction]Ordered By: [facility] Robson on 01-23-2025 Hematocrit (Bld) [Volume fraction] 29.8 % Low 37-47 [facility] Hemoglobin measurementOrdere d By: [facility] on 01-23-2025 Hemoglobin (Bld) [Mass/Vol] 9.5 g/dL Low 12.0-15.0 [facility] Immature granulocytes/100 WB C Auto (Bld)Ordered By: [facility] on 01-23-2025 Immature granulocytes/100 WBC (Bld) 0.800 % 0.0-0.9 [facility] Comment on above: IG% - Immature Granu locytes (promyelocytes, myelocytes and metamyelocytes) > 1% indicates that a LEFT SHIFT is Present. Laboratory - Chemistry and C hemistry - challengeOrdered By: Alis Chance on 01-23-2025 AST [Catalytic activity/Vol] 19 U/L <32 [facility] Laboratory - Hematology and Cell countsOrdered By: [facility] on 01-23-2025 Anisocytosis Ql (Bld) 2+ [facility] MCV (mean corpuscular volume ) determinationOrdered By: Alis Chance on 01-23-2025 MCV (RBC) [Entitic vol] 96.4 fL 81-99 [facility] Mean corpuscular hemoglobin (MCH) determinationOrdered By: Alis Chance on 01-23-2025 MCH (RBC) [Entitic mass] 30.7 pg 27.0-32.0 [facility] Mean corpuscular hemoglobin concentration (MCHC) determinationOrdered By: Alis Chance on 01-23-2025 MCHC (RBC) [Mass/Vol] 31.9 g/dL Low 32-36 [facility] Mean platelet volume determi nationOrdered By: Alis Chance on 01-23-2025 Platelet mean volume (Bld) [Entitic vol] 9.0 fL 6.2-12.0 [facility] Monocyte percentageOrdered B y: Alis Chance on 01-23-2025 Monocytes/100 WBC (Bld) 9.7 % 0-10 [facility] Neutrophil percentageOrdered By: Alis Chance on 01-23-2025 Neutrophils/100 WBC (Bld) 71.0 % High 47-70 [facility] Nucleated red blood cell per centageOrdered By: Alis Chance on 01-23-2025 Nucleated RBC/100 WBC (Bld) [Ratio] 0 % 0-5 [facility] Oncology Visit Reporton 07-0 Oncology Visit Report Normal [facility] Platelet countOrdered By: Gretchen Chance on 01-23-2025 Platelets (Bld) [#/Vol] 295 10*3/uL 150-450 [facility] Potassium measurement (mass/ volume)Ordered By: Alis Chance on 01-23-2025 Potassium (Unsp spec) [Mass/Vol] 3.9 mmol/L 3.3-5.1 [facility] RBC Auto (Bld) [#/Vol]Ordere d By: Alis Chance on 01-23-2025 RBC (Bld) [#/Vol] 3.09 10*6/uL Low 4.2-5.4 [facility] Serum creatinine measurement (mass/volume)Ordered By: Alis Chance on 01-23-2025 Creatinine [Mass/Vol] 0.78 mg/dL 0.70-1.20 [facility] Serum globulin measurementOr dered By: Alis Chance on 01-23-2025 Globulin (S) [Mass/Vol] 1.9 g/dL Low 2.2-4.2 [facility] Serum glucose measurement (m ass/volume)Ordered By: Alis Chance on 01-23-2025 Glucose [Mass/Vol] 98 mg/dL 70-99 [facility] Serum or plasma alanine vicente otransferase (ALT) measurementOrdered By: Alis Chance on 01-23-2025 ALT [Catalytic activity/Vol] 17 U/L <35 [facility] Serum or plasma albumin usman urement (mass/volume)Ordered By: Alis Chance on 01-23-2025 Albumin [Mass/Vol] 3.6 g/dL 3.4-4.8 [facility] Serum or plasma albumin/glob ulin mass ratioOrdered By: Alis Chance on 01-23-2025 Albumin/Globulin [Mass ratio] 1.9 {ratio} 0.9-2.4 [facility] Serum or plasma alkaline marcela sphatase measurementOrdered By: Alis Chance on 01-23-2025 ALP [Catalytic activity/Vol] 81 U/L 35-104 [facility] Serum or plasma calcium usman urement (mass/volume)Ordered By: Alis Chance on 01-23-2025 Calcium [Mass/Vol] 8.7 mg/dL 7.6-11.0 [facility] Serum or plasma urea nitroge n measurement (mass/volume)Ordered By: Alis Chance on 01-23-2025 Urea nitrogen [Mass/Vol] 7 mg/dL 4-19 [facility] Sodium levelOrdered By: Maurice Chance on 01-23-2025 Sodium [Moles/Vol] 140 mmol/L 133-145 [facility] Total proteinOrdered By: Rob Chance on 01-23-2025 Protein [Mass/Vol] 5.5 g/dL Low 5.9-8.4 [facility] White blood cell (WBC) count Ordered By: Alis Chance on 01-23-2025 WBC (Bld) [#/Vol] 6.2 10*3/uL 4.4-11.[address] [facility] [address] Chest, Abd, Pel w/Contras ton 01-16-2025 CT Chest, Abd, Pel w/Contrast Normal [facility] Absolute lymphocyte countOrd ered By: [facility] on 01-02-2025 Lymphocytes Auto (Unsp spec) [#/Vol] 1.38 10*3/uL 0.83-4.51 [facility] Absolute neutrophil countOrd ered By: [facility] on 01-02-2025 Neutrophils (Bld) [#/Vol] 4.2 10*3/uL 2.0-7.7 [facility] Anion gap in Serum or Plasma Ordered [facility]: [facility] on 01-02-2025 Anion gap [Moles/Vol] 14 mmol/L 5-15 [facility] Automated lymphocyte count a s percentage of total leukocytesOrdered By: Alis Chance on 01-02-2025 Lymphocytes/100 WBC Auto (Unsp spec) 21.8 % 19-41 [facility] BUN/creatinine ratioOrdered By: [facility] Robson on 01-02-2025 Urea nitrogen/Creatinine [Mass ratio] 6.2 mg/mg Low 10-20 [facility] Basophil percentageOrdered B y: Alis Chance on 01-02-2025 Basophils/100 WBC (Bld) 0.3 % 0-1 [facility] Bilirubin, totalOrdered By: Alis Chance on 01-02-2025 Bilirubin [Mass/Vol] 0.23 mg/dL 0.00-1.30 [facility] Blood manual differential co mment interpretation (narrative result)Ordered By: [facility] on 01-02-2025 Manual differential comment Luiz (Bld) [Interp] SCANNED [facility] CBC W/Diff, Automatedon 12-17 Anisocytosis Ql (Bld) 2+ Normal [facility] Comment on above: Performed By: #### L 100.0100, L500.4050 ####[facility] [address] [place], [place], [address] SMEAR COMMENT SCANNED Normal [facility] Comment on above: Performed By: #### L 100.0100, L500.4050 ####[facility] [address] [place], [place], [address] Carbon dioxide, total [Moles /volume] in Central venous bloodOrdered By: Alis Chance on 01-02-2025 CO2 [Moles/Vol] 25.0 mmol/L 21.0-32.0 [facility] Chloride assayOrdered By: Gretchen Chance on 01-02-2025 Chloride [Moles/Vol] 103 mmol/L 98-108 [facility] Comprehensive Metabolic Prof ilon 01-02-2025 Bilirubin [Mass/Vol] 0.23 mg/dL Normal 0.00-1.30 [facility] Comment on above: Performed By: #### L 100.0100, L500.4050 ####[facility] [address] [place], [place], [address] Eosinophil percentageOrdered By: [facility] on 01-02-2025 Eosinophils/100 WBC (Bld) 0.0 % 0-5 [facility] Erythrocyte distribution wid th ratioOrdered By: Mauricejeri Chance on 01-02-2025 Erythrocyte distribution width (RBC) [Ratio] 24.7 % High 11.6-14.6 [facility] Erythrocyte distribution wid th standard deviationOrdered By: [facility] on 01-02-2025 Erythrocyte distribution width (RBC) [Ratio] 81.8 fl High 35.1-43.9 [facility] Glomerular filtration rate ( GFR) estimation/1.73 sq m using serum, plasma, or whole bOrdered By: Alis Chance on 01-02-2025 GFR/1.73 sq M.predicted among non-blacks MDRD (S/P/Bld) [Vol rate/Area] 58 mL/min/{1.73_m2} Low >60 [facility] Comment on above: mL/min/1.73m2 CKD-EP I Creatinine Equation (2020) Hematocrit Auto (Bld) [Volum e fraction]Ordered By: Alis Chance on 01-02-2025 Hematocrit (Bld) [Volume fraction] 32.9 % Low 37-47 [facility] Hemoglobin measurementOrdere d By: Alis Chance on 01-02-2025 Hemoglobin (Bld) [Mass/Vol] 10.6 g/dL Low 12.0-15.0 [facility] Immature granulocytes/100 WB C Auto (Bld)Ordered By: Alis Chance on 01-02-2025 Immature granulocytes/100 WBC (Bld) 0.500 % 0.0-0.9 [facility] Comment on above: IG% - Immature Granu locytes (promyelocytes, myelocytes and metamyelocytes) > 1% indicates that a LEFT SHIFT is Present. Laboratory - Chemistry and C hemistry - challengeOrdered By: Alis Chance on 01-02-2025 AST [Catalytic activity/Vol] 21 U/L <32 [facility] Laboratory - Hematology and Cell countsOrdered By: Alis Chance on 01-02-2025 Anisocytosis Ql (Bld) 2+ [facility] MCV (mean corpuscular volume ) determinationOrdered By: Alis Chance on 01-02-2025 MCV (RBC) [Entitic vol] 90.9 fL 81-99 [facility] Mean corpuscular hemoglobin (MCH) determinationOrdered By: Alis Chance on 01-02-2025 MCH (RBC) [Entitic mass] 29.3 pg 27.0-32.0 [facility] Mean corpuscular hemoglobin concentration (MCHC) determinationOrdered By: Alis Chance on 01-02-2025 MCHC (RBC) [Mass/Vol] 32.2 g/dL 32-36 [facility] Mean platelet volume determi nationOrdered By: Alis Chance on 01-02-2025 Platelet mean volume (Bld) [Entitic vol] 8.6 fL 6.2-12.0 [facility] Monocyte percentageOrdered B y: Alis Chance on 01-02-2025 Monocytes/100 WBC (Bld) 10.9 % High 0-10 [facility] Neutrophil percentageOrdered By: Alis Chance on 01-02-2025 Neutrophils/100 WBC (Bld) 66.5 % 47-70 [facility] Nucleated red blood cell per centageOrdered By: Alis Chance on 01-02-2025 Nucleated RBC/100 WBC (Bld) [Ratio] 0 % 0-5 [facility] Oncology Visit Reporton 12-17 Oncology Visit Report Normal [facility] Platelet countOrdered By: Gretchen Chance on 01-02-2025 Platelets (Bld) [#/Vol] 228 10*3/uL 150-450 [facility] Potassium measurement (mass/ volume)Ordered By: Alis Chance on 01-02-2025 Potassium (Unsp spec) [Mass/Vol] 3.4 mmol/L 3.3-5.1 [facility] RBC Auto (Bld) [#/Vol]Ordere d By: Alis Chance on 01-02-2025 RBC (Bld) [#/Vol] 3.62 10*6/uL Low 4.2-5.4 [facility] Serum creatinine measurement (mass/volume)Ordered By: Alis Chance on 01-02-2025 Creatinine [Mass/Vol] 1.02 mg/dL 0.70-1.20 [facility] Serum globulin measurementOr dered By: Alis Chance on 01-02-2025 Globulin (S) [Mass/Vol] 2.4 g/dL 2.2-4.2 [facility] Serum glucose measurement (m ass/volume)Ordered By: Alis Chance on 01-02-2025 Glucose [Mass/Vol] 106 mg/dL High 70-99 [facility] Serum or plasma alanine vicente otransferase (ALT) measurementOrdered By: Alis Chance on 01-02-2025 ALT [Catalytic activity/Vol] 14 U/L <35 [facility] Serum or plasma albumin usman urement (mass/volume)Ordered By: Alis Chance on 01-02-2025 Albumin [Mass/Vol] 4.2 g/dL 3.4-4.8 [facility] Serum or plasma albumin/glob ulin mass ratioOrdered By: Alis Chance on 01-02-2025 Albumin/Globulin [Mass ratio] 1.8 {ratio} 0.9-2.4 [facility] Serum or plasma alkaline marcela sphatase measurementOrdered By: Alis Chance on 01-02-2025 ALP [Catalytic activity/Vol] 79 U/L 35-104 [facility] Serum or plasma calcium usman urement (mass/volume)Ordered By: Alis Chance on 01-02-2025 Calcium [Mass/Vol] 9.6 mg/dL 7.6-11.0 [facility] Serum or plasma urea nitroge n measurement (mass/volume)Ordered By: Alis Chance on 01-02-2025 Urea nitrogen [Mass/Vol] 6 mg/dL 4-19 [facility] Sodium levelOrdered By: Maurice Chance on 01-02-2025 Sodium [Moles/Vol] 142 mmol/L 133-145 [facility] Total proteinOrdered By: Rob Chance on 01-02-2025 Protein [Mass/Vol] 6.6 g/dL 5.9-8.4 [facility] White blood cell (WBC) count Ordered By: Alis Chance on 01-02-2025 WBC (Bld) [#/Vol] 6.3 10*3/uL 4.4-11.0 [facility] Absolute lymphocyte countOrd ered By: Alis Chance on 12-12-2024 Lymphocytes Auto (Unsp spec) [#/Vol] 1.54 10*3/uL 0.83-4.51 [facility] Absolute neutrophil countOrd ered By: Alis Chance on 12-12-2024 Neutrophils (Bld) [#/Vol] 3.1 10*3/uL 2.0-7.7 [facility] Anion gap in Serum or Plasma Ordered By: Alis Chance on 12-12-2024 Anion gap [Moles/Vol] 13 mmol/L 5-15 [facility] Automated lymphocyte count a s percentage of total leukocytesOrdered By: Alis Chance on 12-12-2024 Lymphocytes/100 WBC Auto (Unsp spec) 28.5 % 19-41 [facility] BUN/creatinine ratioOrdered By: Alis Chance on 12-12-2024 Urea nitrogen/Creatinine [Mass ratio] 5.6 mg/mg Low 10-20 [facility] Basophil percentageOrdered B y: Alis Chance on 12-12-2024 Basophils/100 WBC (Bld) 0.6 % 0-1 [facility] Bilirubin, totalOrdered By: Alis Chance on 12-12-2024 Bilirubin [Mass/Vol] 0.20 mg/dL 0.00-1.30 [facility] Blood polychromasia detectio n by light microscopyOrdered By: Alis Chance on 12-12-2024 Polychromasia LM Ql (Bld) 1+ [facility] CBC W/Diff, Automatedon 11-17 POLYCHROMASIA 1+ Normal [facility] Comment on above: Performed By: #### L 500.4050, L100.0100 ####[facility] [address] [place], [address] Anisocytosis Ql (Bld) 2+ Normal [facility] Comment on above: Performed By: #### L 500.4050, L100.0100 ####[facility] [address] [place], [address] PLT EST A Normal ADEQ [facility] Comment on above: Performed By: #### L 500.4050, L100.0100 ####[facility] [address] [place], [address] RED CELL MORPH NORM C+C Normal NORM C C [facility] Comment on above: Performed By: #### L 500.4050, L100.0100 ####[facility] [address] [place], [address] Carbon dioxide, total [Moles /volume] in Central venous bloodOrdered By: Alis Chance on 12-12-2024 CO2 [Moles/Vol] 24.6 mmol/L 21.0-32.0 [facility] Chloride assayOrdered By: Gretchen Chance on 12-12-2024 Chloride [Moles/Vol] 102 mmol/L 98-108 [facility] Comprehensive Metabolic Prof ilon 12-12-2024 Albumin [Mass/Vol] 4.1 g/dL Normal 3.4-4.8 [facility] Comment on above: Performed By: #### L 500.4050, L100.0100 ####[facility] [address] [place], [address] Albumin/Globulin [Mass ratio] 1.7 {ratio} Normal 0.9-2.4 [facility] Comment on above: Performed By: #### L 500.4050, L100.0100 ####[facility] [address] [place], [address] ALK PHOS 78 U/L Normal 35-104 [facility] Comment on above: Performed By: #### L 500.4050, L100.0100 ####[facility] [address] [place], [address] ALT [Catalytic activity/Vol] 15 U/L Normal <=34 [facility] Comment on above: Performed By: #### L 500.4050, L100.0100 ####[facility] [address] [place], [address] AST [Catalytic activity/Vol] 23 U/L Normal <=31 [facility] Comment on above: Performed By: #### L 500.4050, L100.0100 ####[facility] [address] [place], [address] Bilirubin [Mass/Vol] 0.20 mg/dL Normal 0.00-1.30 [facility] Comment on above: Performed By: #### L 500.4050, L100.0100 ####[facility] [address] [place], [address] BUN/CRE 5.6 RATIO Low 10-20 [facility] Comment on above: Performed By: #### L 500.4050, L100.0100 ####[facility] [address] [place], [address] Calcium [Mass/Vol] 9.3 mg/dL Normal 7.6-11.0 [facility] Comment on above: Performed By: #### L 500.4050, L100.0100 ####[facility] [address] [place], [address] Chloride [Moles/Vol] 102 mmol/L Normal 98-108 [facility] Comment on above: Performed By: #### L 500.4050, L100.0100 ####[facility] [address] [place], [address] CO2 [Moles/Vol] 24.6 mmol/L Normal 21.0-32.0 [facility] Comment on above: Performed By: #### L 500.4050, L100.0100 ####[facility] [address] [place], [address] Creatinine [Mass/Vol] 0.90 mg/dL Normal 0.70-1.20 [facility] Comment on above: Performed By: #### L 500.4050, L100.0100 ####[facility] [address] [place], [address] ECRCL 53.51 ml/min Normal 50-250 [facility] Comment on above: Performed By: #### L 500.4050, L100.0100 ####[facility] [address] [place], [address] GAP 13 Normal 5-15 [facility] Comment on above: Performed By: #### L 500.4050, L100.0100 ####[facility] [address] [place], [address] GFR/1.73 sq M.predicted among non-blacks MDRD (S/P/Bld) [Vol rate/Area] 68 mL/min/{1.73_m2} Normal >60 [facility] Comment on above: Result Comment: mL/m in/1.73m2 CKD-EPI Creatinine Equation (2020) Performed By: #### L 500.4050, L100.0100 ####[facility] [address] [place], [address] Globulin (S) [Mass/Vol] 2.5 g/dL Normal 2.2-4.2 [facility] Comment on above: Performed By: #### L 500.4050, L100.0100 ####[facility] [address] [place], [address] Glucose [Mass/Vol] 115 mg/dL High 70-99 [facility] Comment on above: Performed By: #### L 500.4050, L100.0100 ####[facility] [address] [place], [address] Potassium [Moles/Vol] 3.5 mmol/L Normal 3.3-5.1 [facility] Comment on above: Performed By: #### L 500.4050, L100.0100 ####[facility] [address] [place], [address] Sodium [Moles/Vol] 139 mmol/L Normal 133-145 [facility] Comment on above: Performed By: #### L 500.4050, L100.0100 ####[facility] [address] [place], [address] T PROT 6.6 g/dL Normal 5.9-8.4 [facility] Comment on above: Performed By: #### L 500.4050, L100.0100 ####[facility] [address] [place], [address] Urea nitrogen [Mass/Vol] 5 mg/dL Normal 4-19 [facility] Comment on above: Performed By: #### L 500.4050, L100.0100 ####[facility] [address] [place], [address] Eosinophil percentageOrdered By: Alis Chance on 12-12-2024 Eosinophils/100 WBC (Bld) 0.0 % 0-5 [facility] Erythrocyte distribution wid th ratioOrdered By: Alis Chance on 12-12-2024 Erythrocyte distribution width (RBC) [Ratio] 21.8 % High 11.6-14.6 [facility] Erythrocyte distribution wid th standard deviationOrdered By: [facility] on 12-12-2024 Erythrocyte distribution width (RBC) [Ratio] 66.2 fl High 35.1-43.9 [facility] Erythrocyte morphology asses smentOrdered By: [facility] on 12-12-2024 RBC morphology finding Nom (Bld) NORM C+C NORMAL NORM C&C [facility] Glomerular filtration rate ( GFR) estimation/1.73 sq m using serum, plasma, or whole bOrdered By: Alis Chance on 12-12-2024 GFR/1.73 sq M.predicted among non-blacks MDRD (S/P/Bld) [Vol rate/Area] 68 mL/min/{1.73_m2} >60 [facility] Comment on above: mL/min/1.73m2 CKD-EP I Creatinine Equation (2020) Hematocrit Auto (Bld) [Volum e fraction]Ordered By: Alis Chance on 12-12-2024 Hematocrit (Bld) [Volume fraction] 29.5 % Low 37-47 [facility] Hemoglobin measurementOrdere d By: Alis Chance on 12-12-2024 Hemoglobin (Bld) [Mass/Vol] 9.4 g/dL Low 12.0-15.0 [facility] Immature granulocytes/100 WB C Auto (Bld)Ordered By: Alis Chance on 12-12-2024 Immature granulocytes/100 WBC (Bld) 1.100 % High 0.0-0.9 [facility] Comment on above: IG% - Immature Granu locytes (promyelocytes, myelocytes and metamyelocytes) > 1% indicates that a LEFT SHIFT is Present. Laboratory - Chemistry and C hemistry - challengeOrdered By: Alis Chance on 12-12-2024 AST [Catalytic activity/Vol] 23 U/L <32 [facility] Laboratory - Hematology and Cell countsOrdered By: Alis Chance on 12-12-2024 Anisocytosis Ql (Bld) 2+ [facility] MCV (mean corpuscular volume ) determinationOrdered By: Alis Chance on 12-12-2024 MCV (RBC) [Entitic vol] 87.0 fL 81-99 [facility] Magnesiumon 12-12-2024 Magnesium [Mass/Vol] 1.8 mg/dL Normal 1.5-2.2 [facility] Comment on above: Performed By: #### L 501.5200, L501.2300 ####[facility] [address] [place], [address] Magnesium measurement (mass/ volume)Ordered By: Alis Chance on 12-12-2024 Magnesium (Unsp spec) [Mass/Vol] 1.8 mg/dL 1.5-2.2 [facility] Mean corpuscular hemoglobin (MCH) determinationOrdered By: Alis Chance on 12-12-2024 MCH (RBC) [Entitic mass] 27.7 pg 27.0-32.0 [facility] Mean corpuscular hemoglobin concentration (MCHC) determinationOrdered By: Alis Chance on 12-12-2024 MCHC (RBC) [Mass/Vol] 31.9 g/dL Low 32-36 [facility] Mean platelet volume determi nationOrdered By: Alis Chance on 12-12-2024 Platelet mean volume (Bld) [Entitic vol] 8.9 fL 6.2-12.0 [facility] Monocyte percentageOrdered B y: Alis Chance on 12-12-2024 Monocytes/100 WBC (Bld) 13.5 % High 0-10 [facility] Neutrophil percentageOrdered By: Alis Chance on 12-12-2024 Neutrophils/100 WBC (Bld) 56.3 % 47-70 [facility] Nucleated red blood cell per centageOrdered By: Alis Chance on 12-12-2024 Nucleated RBC/100 WBC (Bld) [Ratio] 0 % 0-5 [facility] Oncology Visit Reporton 11-17 Oncology Visit Report Normal [facility] Phosphoruson 12-12-2024 Phosphate [Mass/Vol] 3.8 mg/dL Normal 2.7-4.5 [facility] Comment on above: Performed By: #### L 501.5200, L501.2300 ####[facility] [address] [place], [address] Platelet countOrdered By: Gretchen Chance on 12-12-2024 Platelets (Bld) [#/Vol] 266 10*3/uL 150-450 [facility] Platelet estimateOrdered By: Alis Chance on 12-12-2024 Platelets LM Ql (Bld) A ADEQ [facility] Potassium measurement (mass/ volume)Ordered By: Alis Chance on 12-12-2024 Potassium (Unsp spec) [Mass/Vol] 3.5 mmol/L 3.3-5.1 [facility] RBC Auto (Bld) [#/Vol]Ordere d By: Alis Chance on 12-12-2024 RBC (Bld) [#/Vol] 3.39 10*6/uL Low 4.2-5.4 [facility] Serum creatinine measurement (mass/volume)Ordered By: Alis Chance on 12-12-2024 Creatinine [Mass/Vol] 0.90 mg/dL 0.70-1.20 [facility] Serum globulin measurementOr dered By: Alis Chance on 12-12-2024 Globulin (S) [Mass/Vol] 2.5 g/dL 2.2-4.2 [facility] Serum glucose measurement (m ass/volume)Ordered By: Alis Chance on 12-12-2024 Glucose [Mass/Vol] 115 mg/dL High 70-99 [facility] Serum or plasma alanine vicente otransferase (ALT) measurementOrdered By: Alis Chance on 12-12-2024 ALT [Catalytic activity/Vol] 15 U/L <35 [facility] Serum or plasma albumin usman urement (mass/volume)Ordered By: Alis Chance on 12-12-2024 Albumin [Mass/Vol] 4.1 g/dL 3.4-4.8 [facility] Serum or plasma albumin/glob ulin mass ratioOrdered By: Alis Chance on 12-12-2024 Albumin/Globulin [Mass ratio] 1.7 {ratio} 0.9-2.4 [facility] Serum or plasma alkaline marcela sphatase measurementOrdered By: Alis Chance on 12-12-2024 ALP [Catalytic activity/Vol] 78 U/L 35-104 [facility] Serum or plasma calcium usman urement (mass/volume)Ordered By: Alis Chance on 12-12-2024 Calcium [Mass/Vol] 9.3 mg/dL 7.6-11.0 [facility] Serum or plasma urea nitroge n measurement (mass/volume)Ordered By: Alis Chance on 12-12-2024 Urea nitrogen [Mass/Vol] 5 mg/dL 4-19 [facility] Sodium levelOrdered By: Maurice Chance on 12-12-2024 Sodium [Moles/Vol] 139 mmol/L 133-145 [facility] Total proteinOrdered By: Rob Chance on 12-12-2024 Protein [Mass/Vol] 6.6 g/dL 5.9-8.4 [facility] White blood cell (WBC) count Ordered By: Alis Chance on 12-12-2024 WBC (Bld) [#/Vol] 5.4 10*3/uL 4.4-11.0 [facility] XR FINGER THUMB 3 VIEWS LEFT [...] Date: 11/24/2024 3:30:21 PM Ordering Provider: WILBUR AGRAWAL [facility] CBC W/Diff, Automatedon 05-0 Absolute Lymph 1.29 X10 3/uL Normal 0.83-4.51 [facility] Comment on above: Performed By: #### L 100.0100, L500.4050 ####[facility] [address] [place], [address] Absolute Neut 2.5 X10 3/uL Normal 2.0-7.7 [facility] Comment on above: Performed By: #### L 100.0100, L500.4050 ####[facility] [address] [place], [address] Basophils/100 WBC (Bld) 0.7 % Normal 0-1 [facility] Comment on above: Performed By: #### L 100.0100, L500.4050 ####[facility] [address] [place], [address] Eosinophils/100 WBC (Bld) 0.0 % Normal 0-5 [facility] Comment on above: Performed By: #### L 100.0100, L500.4050 ####[facility] [address] [place], [address] Erythrocyte distribution width (RBC) [Ratio] 18.5 % High 11.6-14.6 [facility] Comment on above: Performed By: #### L 100.0100, L500.4050 ####[facility] [address] [place], [address] Hematocrit (Bld) [Volume fraction] 31.1 % Low 37-47 [facility] Comment on above: Performed By: #### L 100.0100, L500.4050 ####[facility] [address] [place], [address] Hemoglobin (Bld) [Mass/Vol] 9.8 g/dL Low 12.0-15.0 [facility] Comment on above: Performed By: #### L 100.0100, L500.4050 ####[facility] [address] [place], [address] IG% 0.900 Normal 0.0-0.9 [facility] Comment on above: Result Comment: IG% - Immature Granulocytes (promyelocytes, myelocytes andmetamyelocytes) > 1% indicates that a LEFT SHIFT is Present. Performed By: #### L 100.0100, L500.4050 ####[facility] [address] [place], [address] Lymphocytes/100 WBC (Bld) 28.9 % Normal 19-41 [facility] Comment on above: Performed By: #### L 100.0100, L500.4050 ####[facility] [address] [place], [address] MCH (RBC) [Entitic mass] 26.5 pg Low 27.0-32.0 [facility] Comment on above: Performed By: #### L 100.0100, L500.4050 ####[facility] [facility] [address] [place], [address] MCHC (RBC) [Mass/Vol] 31.5 g/dL Low 32-36 [facility] Comment on above: Performed By: #### L 100.0100, L500.4050 ####[facility] [address] [place], [address] MCV (RBC) [Entitic vol] 84.1 fL Normal 81-99 [facility] Comment on above: Performed By: #### L 100.0100, L500.4050 ####[facility] [address] [place], [address] Monocytes/100 WBC (Bld) 14.8 % High 0-10 [facility] Comment on above: Performed By: #### L 100.0100, L500.4050 ####[facility] [address] [place], [address] Neutrophils/100 WBC (Bld) 54.7 % Normal 47-70 [facility] Comment on above: Performed By: #### L 100.0100, L500.4050 ####[facility] [address] [place], [address] Nucleated RBC (Bld) [#/Vol] 0 10*3/uL Normal 0-5 [facility] Comment on above: Performed By: #### L 100.0100, L500.4050 ####[facility] [address] [place], [address] Platelet mean volume (Bld) [Entitic vol] 8.6 fL Normal 6.2-12.0 [facility] Comment on above: Performed By: #### L 100.0100, L500.4050 ####[facility] [address] [place], [address] Platelets (Bld) [#/Vol] 322 10*3/uL Normal 150-450 [facility] Comment on above: Performed By: #### L 100.0100, L500.4050 ####[facility] [address] [place], [address] RBC (Bld) [#/Vol] 3.70 10*6/uL Low 4.2-5.4 [facility] Comment on above: Performed By: #### L 100.0100, L500.4050 ####[facility] [address] [place], [address] RDW SD 49.6 fl High 35.1-43.9 [facility] Comment on above: Performed By: #### L 100.0100, L500.4050 ####[facility] [address] [place], [address] WBC (Bld) [#/Vol] 4.5 10*3/uL Normal 4.4-11.0 [facility] Comment on above: Performed By: #### L 100.0100, L500.4050 ####[facility] [address] [place], [address] Comprehensive Metabolic Prof [facility] 11-21-2024 Albumin [Mass/Vol] 4.0 g/dL Normal 3.4-4.8 [facility] Comment on above: Performed By: #### L 100.0100, L500.4050 ####[facility] [address] [place], [address] Albumin/Globulin [Mass ratio] 1.5 {ratio} Normal 0.9-2.4 [facility] Comment on above: Performed By: #### L 100.0100, L500.4050 ####[facility] [address] [place], [address] ALK PHOS 70 U/L Normal 35-104 [facility] Comment on above: Performed By: #### L 100.0100, L500.4050 ####[facility] [address] [place], [address] ALT [Catalytic activity/Vol] 15 U/L Normal <=34 [facility] Comment on above: Performed By: #### L 100.0100, L500.4050 ####[facility] [address] [place], [address] AST [Catalytic activity/Vol] 23 U/L Normal <=31 [facility] Comment on above: Performed By: #### L 100.0100, L500.4050 ####[facility] [address] [place], [address] Bilirubin [Mass/Vol] 0.20 mg/dL Normal 0.00-1.30 [facility] Comment on above: Performed By: #### L 100.0100, L500.4050 ####[facility] [address] [place], [address] BUN/CRE 10.1 RATIO Normal 10-20 [facility] Comment on above: Performed By: #### L 100.0100, L500.4050 ####[facility] [address] [place], [address] Calcium [Mass/Vol] 9.5 mg/dL Normal 7.6-11.0 [facility] Comment on above: Performed By: #### L 100.0100, L500.4050 ####[facility] [address] [place], [address] Chloride [Moles/Vol] 102 mmol/L Normal 98-108 [facility] Comment on above: Performed By: #### L 100.0100, L500.4050 ####[facility] [address] [place], [address] CO2 [Moles/Vol] 25.9 mmol/L Normal 21.0-32.0 [facility] Comment on above: Performed By: #### L 100.0100, L500.4050 ####[facility] [address] [place], [address] Creatinine [Mass/Vol] 0.85 mg/dL Normal 0.70-1.20 [facility] Comment on above: Performed By: #### L 100.0100, L500.4050 ####[facility] [address] [place], [address] ECRCL 57.11 ml/min Normal 50-250 [facility] Comment on above: Performed By: #### L 100.0100, L500.4050 ####[facility] [address] [place], [address] GAP 12 Normal 5-15 [facility] Comment on above: Performed By: #### L 100.0100, L500.4050 ####[facility] [address] [place], [address] GFR/1.73 sq M.predicted among non-blacks MDRD (S/P/Bld) [Vol rate/Area] 73 mL/min/{1.73_m2} Normal >60 [facility] Comment on above: Result Comment: mL/m in/1.73m2 CKD-EPI Creatinine Equation (2020) Performed By: #### L 100.0100, L500.4050 ####[facility] [address] [place], [address] Globulin (S) [Mass/Vol] 2.6 g/dL Normal 2.2-4.2 [facility] Comment on above: Performed By: #### L 100.0100, L500.4050 ####[facility] [address] [place], [address] Glucose [Mass/Vol] 101 mg/dL High 70-99 [facility] Comment on above: Performed By: #### L 100.0100, L500.4050 ####[facility] [address] [place], [address] Potassium [Moles/Vol] 3.7 mmol/L Normal 3.3-5.1 [facility] Comment on above: Performed By: #### L 100.0100, L500.4050 ####[facility] [address] [place], [address] Sodium [Moles/Vol] 140 mmol/L Normal 133-145 [facility] Comment on above: Performed By: #### L 100.0100, L500.4050 ####[facility] [address] [place], [address] T PROT 6.6 g/dL Normal 5.9-8.4 [facility] Comment on above: Performed By: #### L 100.0100, L500.4050 ####[facility] [address] [place], [address] Urea nitrogen [Mass/Vol] 9 mg/dL Normal 4-19 [facility] Comment on above: Performed By: #### L 100.0100, L500.4050 ####[facility] [address] [place], [address] Oncology Visit Reporton Oncology Visit Report Normal [facility] Cardiology Visit Reporton Cardiology Visit Report Normal [facility] CXR for Line Placementon CXR for Line Placement Normal [facility] Discharge Instructionon Discharge Instruction Normal [facility] MR/POSTOP.ANEon 11-16-2024 MR/POSTOP.ANE Normal [facility] MR/LDVDKUUW0nf 11-16-2024 MR/POSTOPAN2 Normal [facility] Operative Reporton Operative Report Normal [facility] CBC W/Diff, Automatedon 10-18 PATH REV Reviewed Normal [facility] Comment on above: Result Comment: LEUK OPENIA WITH ABSOLUTE NEUTROPENIA AND LYMPHOPENIA.NORMOCYTIC HYPOCHROMIC ANEMIA WITH MILD ANISOCYTOSIS.ADEQUATE PLATELETS.Sydnee Valencia MD 11/10/2024 AMENDED REPORT 11/10/24 1131 PATH REV previously reported as: Kathrin meadows Performed By: #### L 100.0100, L503.6550 ####[facility] [address] [place], [address] Blood band neutrophil count as percentage of total leukocytesOrdered By: Anayeli Audelia on 11-09-2024 Band form neutrophils/100 WBC (Bld) 7 % High 0-5 [facility] Blood basophils/100 leukocyt esOrdered By: Anayeli Audelia on 11-09-2024 Basophils/100 WBC (Bld) 2 % High 0-1 [facility] Blood lymphocytes/100 leukoc ytesOrdered By: Anayeli Audelia on 11-09-2024 Lymphocytes/100 WBC (Bld) 34 % 19-41 [facility] Blood monocytes/100 leukocyt esOrdered By: Anayeli Audelia on 11-09-2024 Monocytes/100 WBC (Bld) 11 % High 0-10 [facility] Blood segmented neutrophils/ 100 leukocytesOrdered By: Anayeli Audelia on 11-09-2024 Segmented neutrophils/100 WBC (Bld) 46 % Low 47-70 [facility] Comprehensive Metabolic Prof ilon 11-09-2024 Albumin [Mass/Vol] 3.8 g/dL Normal 3.4-4.8 [facility] Comment on above: Performed By: #### L 503.0106, L500.4050, L503.6030 ####[facility] [address] [place], [address] Albumin/Globulin [Mass ratio] 1.4 {ratio} Normal 0.9-2.4 [facility] Comment on above: Performed By: #### L 503.0106, L500.4050, L503.6030 ####[facility] [address] [place], [address] ALK PHOS 82 U/L Normal 35-104 [facility] Comment on above: Performed By: #### L 503.0106, L500.4050, L503.6030 ####[facility] [address] [place], [address] ALT [Catalytic activity/Vol] 19 U/L Normal <=34 [facility] Comment on above: Performed By: #### L 503.0106, L500.4050, L503.6030 ####[facility] [address] [place], [address] AST [Catalytic activity/Vol] 17 U/L Normal <=31 [facility] Comment on above: Performed By: #### L 503.0106, L500.4050, L503.6030 ####[facility] [address] [place], [address] Bilirubin [Mass/Vol] 0.17 mg/dL Normal 0.00-1.30 [facility] Comment on above: Performed By: #### L 503.0106, L500.4050, L503.6030 ####[facility] [address] [place], [address] BUN/CRE 10.6 RATIO Normal 10-20 [facility] Comment on above: Performed By: #### L 503.0106, L500.4050, L503.6030 ####[facility] [address] [place], [address] Calcium [Mass/Vol] 9.3 mg/dL Normal 7.6-11.0 [facility] Comment on above: Performed By: #### L 503.0106, L500.4050, L503.6030 ####[facility] [address] [place], [address] Chloride [Moles/Vol] 101 mmol/L Normal 98-108 [facility] Comment on above: Performed By: #### L 503.0106, L500.4050, L503.6030 ####[facility] [address] [place], [address] CO2 [Moles/Vol] 27.5 mmol/L Normal 21.0-32.0 [facility] Comment on above: Performed By: #### L 503.0106, L500.4050, L503.6030 ####[facility] [address] [place], [address] Creatinine [Mass/Vol] 0.75 mg/dL Normal 0.70-1.20 [facility] Comment on above: Performed By: #### L 503.0106, L500.4050, L503.6030 ####[facility] [address] [place], [address] ECRCL 62.94 ml/min Normal 50-250 [facility] Comment on above: Performed By: #### L 503.0106, L500.4050, L503.6030 ####[facility] [address] [place], [address] GAP 13 Normal 5-15 [facility] Comment on above: Performed By: #### L 503.0106, L500.4050, L503.6030 ####[facility] [address] [place], [address] GFR/1.73 sq M.predicted among non-blacks MDRD (S/P/Bld) [Vol rate/Area] 85 mL/min/{1.73_m2} Normal >60 [facility] Comment on above: Result Comment: mL/m in/1.73m2 CKD-EPI Creatinine Equation (2020) Performed By: #### L 503.0106, L500.4050, L503.6030 ####[facility] [address] [place], [address] Globulin (S) [Mass/Vol] 2.7 g/dL Normal 2.2-4.2 [facility] Comment on above: Performed By: #### L 503.0106, L500.4050, L503.6030 ####[facility] [address] [place], [address] Glucose [Mass/Vol] 110 mg/dL High 70-99 [facility] Comment on above: Performed By: #### L 503.0106, L500.4050, L503.6030 ####[facility] [address] [place], [address] Potassium [Moles/Vol] 3.1 mmol/L Low 3.3-5.1 [facility] Comment on above: Performed By: #### L 503.0106, L500.4050, L503.6030 ####[facility] [address] [place], [address] Sodium [Moles/Vol] 141 mmol/L Normal 133-145 [facility] Comment on above: Performed By: #### L 503.0106, L500.4050, L503.6030 ####[facility] [address] [place], [address] T PROT 6.5 g/dL Normal 5.9-8.4 [facility] Comment on above: Performed By: #### L 503.0106, L500.4050, L503.6030 ####[facility] [address] [place], [address] Urea nitrogen [Mass/Vol] 8 mg/dL Normal 4-19 [facility] Comment on above: Performed By: #### L 503.0106, L500.4050, L503.6030 ####[facility] [address] [place], [address] Ferritinon 11-09-2024 Ferritin [Mass/Vol] 243 ng/mL Normal 22-378 [facility] Comment on above: Performed By: #### L 100.0100, L503.6550 ####[facility] [address] [place], [address] Iron measurement (mass/mass) Ordered By: Anayeli Win on 11-09-2024 Iron (Unsp spec) [Mass/Mass] 88 ug/dL 50-170 [facility] Iron+Iron Binding Capacityon 11-09-2024 Iron [Mass/Vol] 88 ug/dL Normal 50-170 [facility] Comment on above: Performed By: #### L 503.0106, L500.4050, L503.6030 ####[facility] [address] [place], [address] IRON SATURATION 31.0 Normal 13-59 [facility] Comment on above: Performed By: #### L 503.0106, L500.4050, L503.6030 ####[facility] [address] [place], [address] TIBC 281 ug/dL Normal 250-450 [facility] Comment on above: Performed By: #### L 503.0106, L500.4050, L503.6030 ####[facility] [address] [place], [address] UIBC 193 ug/dL Low 228-428 [facility] Comment on above: Performed By: #### L 503.0106, L500.4050, L503.6030 ####[facility] [address] [place], [address] No Panel InformationOrdered By: Anayeli Win on 11-09-2024 Unsaturated Iron Binding Capacity 193 ug/dL Low 228-428 [facility] Oncology Visit Reporton 10-18 Oncology Visit Report Normal [facility] Review by pathologistOrdered By: Anayeli Win on 11-09-2024 Pathologist review Luiz (Unsp spec) [Interp] Reviewed [facility] Comment on above: Previous reported re sult: Kathrin meadows Edited by: ADAL on 11/10/24:1131LEUKOPENIA WITH ABSOLUTE NEUTROPENIA AND LYMPHOPENIA.NORMOCYTIC HYPOCHROMIC ANEMIA WITH MILD ANISOCYTOSIS.ADEQUATE PLATELETS.Sydnee Valencia MD 11/10/2024 AMENDED REPORT 11/10/24 1131 PATH REV previously reported as: Kathrin meadows Serum or plasma ferritin fidel surement (mass/volume)Ordered By: Anayeli Win on 11-09-2024 Ferritin [Mass/Vol] 243 ng/mL 22-378 [facility] Serum or plasma iron saturat ion measurement (mass fraction)Ordered By: Anayeli Win on 11-09-2024 Iron saturation [Mass fraction] 31.0 % 13-59 [facility] Total cell countOrdered By: Anayeli Win on 11-09-2024 Cells counted Molgen (Bld/Tiss) [#] 100 MANUAL DIFF [facility] Vitamin B12on 11-09-2024 Cobalamin (Vitamin B12) [Mass/Vol] 2391 pg/mL High 180-914 [facility] Comment on above: Performed By: #### L 503.0106, L500.4050, L503.6030 ####[facility] [address] 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 She had [...] daughter would like to establish with a certified diabetes educator in [place]. Patient is monitoring her BP at home, and will call her daughter, ( who is at work now) if BP drops. She will contactthe operations coordinator to see if she can arrange Cardiology to see her tomorrow while at the infusion center. She will keep us updated. [facility] 36 Daughter called back she spoke to oncologist and oncologist is more comfortable if we deal with this. Normal [facility] 36 I spoke with daughter pt having increase BOWMAN/ up 7 #s/b/l lower extremity edema after having 2 chemo treatments. Daughter states chemo staff said to call certified diabetes educator. She is not sure if oncologist or his office is aware. I asked her to check with them first regarding the symptoms she is having. The care will be directed by them. She will call back after she makes sure the oncologist is aware. Normal [facility] 36 Daughter calling pt is new to chemo having second treatment today. She has gained 7# since yesterday. Chemo staff wanted pt to call certified diabetes educator pt has edema in ankles. Normal [facility] CBC W/Diff, Automatedon 10-17-2024 Absolute Lymph 1.00 X10 3/uL Normal 0.83-4.51 [facility] Comment on above: Performed By: #### L 500.4050, L100.0100 ####[facility] [address] [place], [address] Absolute Neut 2.9 X10 3/uL Normal 2.0-7.7 [facility] Comment on above: Performed By: #### L 500.4050, L100.0100 ####[facility] [address] [place], [address] Basophils/100 WBC (Bld) 0.5 % Normal 0-1 [facility] Comment on above: Performed By: #### L 500.4050, L100.0100 ####[facility] [address] [place], [address] Eosinophils/100 WBC (Bld) 0.7 % Normal 0-5 [facility] Comment on above: Performed By: #### L 500.4050, L100.0100 ####[facility] [address] [place], [address] Erythrocyte distribution width (RBC) [Ratio] 16.6 % High 11.6-14.6 [facility] Comment on above: Performed By: #### L 500.4050, L100.0100 ####[facility] [address] [place], [address] Hematocrit (Bld) [Volume fraction] 32.5 % Low 37-47 [facility] Comment on above: Performed By: #### L 500.4050, L100.0100 ####[facility] [address] [place], [address] Hemoglobin (Bld) [Mass/Vol] 10.2 g/dL Low 12.0-15.0 [facility] Comment on above: Performed By: #### L 500.4050, L100.0100 ####[facility] [address] [place], [address] IG% 0.200 Normal 0.0-0.9 [facility] Comment on above: Result Comment: IG% - Immature Granulocytes (promyelocytes, myelocytes andmetamyelocytes) > 1% indicates that a LEFT SHIFT is Present. Performed By: #### L 500.4050, L100.0100 ####[facility] [address] [place], [address] Lymphocytes/100 WBC (Bld) 22.6 % Normal 19-41 [facility] Comment on above: Performed By: #### L 500.4050, L100.0100 ####[facility] [address] [place], [address] MCH (RBC) [Entitic mass] 26.4 pg Low 27.0-32.0 [facility] Comment on above: Performed By: #### L 500.4050, L100.0100 ####[facility] [address] [place], [address] MCHC (RBC) [Mass/Vol] 31.4 g/dL Low 32-36 [facility] Comment on above: Performed By: #### L 500.4050, L100.0100 ####[facility] [address] [place], [address] MCV (RBC) [Entitic vol] 84.0 fL Normal 81-99 [facility] Comment on above: Performed By: #### L 500.4050, L100.0100 ####[facility] [address] [place], [address] Monocytes/100 WBC (Bld) 11.7 % High 0-10 [facility] Comment on above: Performed By: #### L 500.4050, L100.0100 ####[facility] [address] [place], [address] Neutrophils/100 WBC (Bld) 64.3 % Normal 47-70 [facility] Comment on above: Performed By: #### L 500.4050, L100.0100 ####[facility] [address] [place], [address] Nucleated RBC (Bld) [#/Vol] 0 10*3/uL Normal 0-5 [facility] Comment on above: Performed By: #### L 500.4050, L100.0100 ####[facility] [address] [place], [address] Platelet mean volume (Bld) [Entitic vol] 8.5 fL Normal 6.2-12.0 [facility] Comment on above: Performed By: #### L 500.4050, L100.0100 ####[facility] [address] [place], [address] Platelets (Bld) [#/Vol] 284 10*3/uL Normal 150-450 [facility] Comment on above: Performed By: #### L 500.4050, L100.0100 ####[facility] [address] [place], [address] RBC (Bld) [#/Vol] 3.87 10*6/uL Low 4.2-5.4 [facility] Comment on above: Performed By: #### L 500.4050, L100.0100 ####[facility] [address] [place], [address] RDW SD 50.7 fl High 35.1-43.9 [facility] Comment on above: Performed By: #### L 500.4050, L100.0100 ####[facility] [address] [place], [address] WBC (Bld) [#/Vol] 4.4 10*3/uL Normal 4.4-11.0 [facility] Comment on above: Performed By: #### L 500.4050, L100.0100 ####[facility] [address] [place], [address] Absolute Neut Normal 2.0-7.7 [facility] Comment on above: Result Comment: @DUP LICATE ORDER Performed By: #### L 500.4050, L100.0100 ####[facility] [address] [place], [address] HCT Normal 37-47 [facility] Comment on above: Result Comment: @DUP LICATE ORDER Performed By: #### L 500.4050, L100.0100 ####[facility] [address] [place], [address] HGB Normal 12.0-15.0 [facility] Comment on above: Result Comment: @DUP LICATE ORDER Performed By: #### L 500.4050, L100.0100 ####[facility] [address] [place], [address] MCH Normal 27.0-32.0 [facility] Comment on above: Result Comment: @DUP LICATE ORDER Performed By: #### L 500.4050, L100.0100 ####[facility] [address] [place], [address] MCHC Normal 32-36 [facility] Comment on above: Result Comment: @DUP LICATE ORDER Performed By: #### L 500.4050, L100.0100 ####[facility] [address] [place], [address] MCV Normal 81-99 [facility] Comment on above: Result Comment: @DUP LICATE ORDER Performed By: #### L 500.4050, L100.0100 ####[facility] [address] [place], [address] NEUT% Normal 47-70 [facility] Comment on above: Result Comment: @DUP LICATE ORDER Performed By: #### L 500.4050, L100.0100 ####[facility] [address] [place], [address] PLT Normal 150-450 [facility] Comment on above: Result Comment: @DUP LICATE ORDER Performed By: #### L 500.4050, L100.0100 ####[facility] [address] [place], [address] RBC Normal 4.2-5.4 [facility] Comment on above: Result Comment: @DUP LICATE ORDER Performed By: #### L 500.4050, L100.0100 ####[facility] [address] [place], [address] RDW CV Normal 11.6-14.6 [facility] Comment on above: Result Comment: @DUP LICATE ORDER Performed By: #### L 500.4050, L100.0100 ####[facility] [address] [place], [address] RDW SD Normal 35.1-43.9 [facility] Comment on above: Result Comment: @DUP LICATE ORDER Performed By: #### L 500.4050, L100.0100 ####[facility] [address] [place], [address] WBC Normal 4.4-11.0 [facility] Comment on above: Result Comment: @DUP LICATE ORDER Performed By: #### L 500.4050, L100.0100 ####[facility] [address] [place], [address] Comprehensive Metabolic Prof ilon 10-31-2024 Albumin [Mass/Vol] 3.6 g/dL Normal 3.4-4.8 [facility] Comment on above: Performed By: #### L 500.4050, L100.0100 ####[facility] [address] [place], [address] Albumin/Globulin [Mass ratio] 1.3 {ratio} Normal 0.9-2.4 [facility] Comment on above: Performed By: #### L 500.4050, L100.0100 ####[facility] [address] [place], [address] ALK PHOS 63 U/L Normal 35-104 [facility] Comment on above: Performed By: #### L 500.4050, L100.0100 ####[facility] [address] [place], [address] ALT [Catalytic activity/Vol] 11 U/L Normal <=34 [facility] Comment on above: Performed By: #### L 500.4050, L100.0100 ####[facility] [address] [place], [address] AST [Catalytic activity/Vol] 17 U/L Normal <=31 [facility] Comment on above: Performed By: #### L 500.4050, L100.0100 ####[facility] [address] [place], [address] Bilirubin [Mass/Vol] 0.17 mg/dL Normal 0.00-1.30 [facility] Comment on above: Performed By: #### L 500.4050, L100.0100 ####[facility] [address] [place], [address] BUN/CRE 19.1 RATIO Normal 10-20 [facility] Comment on above: Performed By: #### L 500.4050, L100.0100 ####[facility] [address] [place], [address] Calcium [Mass/Vol] 9.2 mg/dL Normal 7.6-11.0 [facility] Comment on above: Performed By: #### L 500.4050, L100.0100 ####[facility] [address] [place], [address] Chloride [Moles/Vol] 107 mmol/L Normal 98-108 [facility] Comment on above: Performed By: #### L 500.4050, L100.0100 ####[facility] [address] [place], [address] CO2 [Moles/Vol] 26.3 mmol/L Normal 21.0-32.0 [facility] Comment on above: Performed By: #### L 500.4050, L100.0100 ####[facility] [address] [place], [address] Creatinine [Mass/Vol] 0.71 mg/dL Normal 0.70-1.20 [facility] Comment on above: Performed By: #### L 500.4050, L100.0100 ####[facility] [address] [place], [address] ECRCL 61.80 ml/min Normal 50-250 [facility] Comment on above: Performed By: #### L 500.4050, L100.0100 ####[facility] [address] [place], [address] GAP 11 Normal 5-15 [facility] Comment on above: Performed By: #### L 500.4050, L100.0100 ####[facility] [address] [place], [address] GFR/1.73 sq M.predicted among non-blacks MDRD (S/P/Bld) [Vol rate/Area] 91 mL/min/{1.73_m2} Normal >60 [facility] Comment on above: Result Comment: mL/m in/1.73m2 CKD-EPI Creatinine Equation (2020) Performed By: #### L 500.4050, L100.0100 ####[facility] [address] [place], [address] Globulin (S) [Mass/Vol] 2.9 g/dL Normal 2.2-4.2 [facility] Comment on above: Performed By: #### L 500.4050, L100.0100 ####[facility] [address] [place], [address] Glucose [Mass/Vol] 106 mg/dL High 70-99 [facility] Comment on above: Performed By: #### L 500.4050, L100.0100 ####[facility] [address] [place], [address] Potassium [Moles/Vol] 3.7 mmol/L Normal 3.3-5.1 [facility] Comment on above: Performed By: #### L 500.4050, L100.0100 ####[facility] [address] [place], [address] Sodium [Moles/Vol] 144 mmol/L Normal 133-145 [facility] Comment on above: Performed By: #### L 500.4050, L100.0100 ####[facility] [address] [place], [address] T PROT 6.5 g/dL Normal 5.9-8.4 [facility] Comment on above: Performed By: #### L 500.4050, L100.0100 ####[facility] [address] [place], [address] Urea nitrogen [Mass/Vol] 14 mg/dL Normal 4-19 [facility] Comment on above: Performed By: #### L 500.4050, L100.0100 ####[facility] [address] [place], [address] ALB Normal 3.4-4.8 [facility] Comment on above: Result Comment: @DUP LICATE ORDER Performed By: #### L 500.4050, L100.0100 ####[facility] [address] [place], [address] ALK PHOS Normal 35-104 [facility] Comment on above: Result Comment: @DUP LICATE ORDER Performed By: #### L 500.4050, L100.0100 ####[facility] [address] [place], [address] ALT Normal <=34 [facility] Comment on above: Result Comment: @DUP LICATE ORDER Performed By: #### L 500.4050, L100.0100 ####[facility] [address] [place], [address] AST Normal <=31 [facility] Comment on above: Result Comment: @DUP LICATE ORDER Performed By: #### L 500.4050, L100.0100 ####[facility] [address] [place], [address] BUN Normal 4-19 [facility] Comment on above: Result Comment: @DUP LICATE ORDER Performed By: #### L 500.4050, L100.0100 ####[facility] [address] [place], [address] BUN/CRE Normal 10-20 [facility] Comment on above: Result Comment: @DUP LICATE ORDER Performed By: #### L 500.4050, L100.0100 ####[facility] [address] [place], [address] Calcium Normal 7.6-11.0 [facility] Comment on above: Result Comment: @DUP LICATE ORDER Performed By: #### L 500.4050, L100.0100 ####[facility] [address] [place], [address] CL Normal 98-108 [facility] Comment on above: Result Comment: @DUP LICATE ORDER Performed By: #### L 500.4050, L100.0100 ####[facility] [address] [place], [address] CO2 Normal 21.0-32.0 [facility] Comment on above: Result Comment: @DUP LICATE ORDER Performed By: #### L 500.4050, L100.0100 ####[facility] [address] [place], [address] CREAT,SERUM Normal 0.70-1.20 [facility] Comment on above: Result Comment: @DUP LICATE ORDER Performed By: #### L 500.4050, L100.0100 ####[facility] [address] [place], [address] eGFR Normal >60 [facility] Comment on above: Result Comment: @DUP LICATE ORDER Performed By: #### L 500.4050, L100.0100 ####[facility] [address] [place], [address] GAP Normal 5-15 [facility] Comment on above: Result Comment: @DUP LICATE ORDER Performed By: #### L 500.4050, L100.0100 ####[facility] [address] [place], [address] GLU Normal 70-99 [facility] Comment on above: Result Comment: @DUP LICATE ORDER Performed By: #### L 500.4050, L100.0100 ####[facility] [address] [place], [address] Potassium Normal 3.3-5.1 [facility] Comment on above: Result Comment: @DUP LICATE ORDER Performed By: #### L 500.4050, L100.0100 ####[facility] [address] [place], [address] T BILI Normal 0.00-1.30 [facility] Comment on above: Result Comment: @DUP LICATE ORDER Performed By: #### L 500.4050, L100.0100 ####[facility] [address] [place], [address] T PROT Normal 5.9-8.4 [facility] Comment on above: Result Comment: @DUP LICATE ORDER Performed By: #### L 500.4050, L100.0100 ####[facility] [address] [place], [address] Comprehensive Metabolic Profil Normal 133-145 [facility] Comment on above: Result Comment: @DUP LICATE ORDER Performed By: #### L 500.4050, L100.0100 ####[facility] [address] [place], [address] Oncology Visit Reporton 10-17 Oncology Visit Report Normal [facility] 36on 10-27-2024 36 Reviewed clinisync and confirmed that patient ws able to establish with [place] [facility] on 10/26/24. Beginning treatment 10/31/24. Normal [facility] Surgery Visit Reporton 10-27 Surgery Visit Report Normal [facility] 36on 10-26-2024 36 Pt's Daughter, Diaz requesting POC device for he Mother. Explains her Mother has multiple Dr's appointments. Just today, her mother used 3 tanks. While working on TE, had contacted Pt's Daughter for more information , Diaz explained, She just talked to [employer] and decided to stick with tanks. Normal [facility] Office Visiton 10-26-2024 Follow-up visit [id number] Karina Fernando 1950 F Date Provider Department Center 10/26/2024 JOSELYN [facility] None Family History Problem Relation Age of Onset Cancer Mother Cancer Father No Known Problems Sister No Known Problems Brother Heart disease Brother Family Status - Relation Status Age at Mother Father Sister Alive Brother Alive Brother Alive Level of Service:41158 [place] OFFICE/OUTPATIENT [facility] 60 MINUTES Reason for Visit and Comments: New Patient [542] Thyroid Problem [110] - Thyroid nodule Normal [facility] Oncology Visit Reporton 10-17 Oncology Visit Report Normal [facility] Progress Noteon 10-26-2024 Progress Note . ENDOCRINOLOGY [address] [place] [id number] Dept: [phone] Dept Visit type: New patient Reason for [...] capsule by mouth daily., Disp: , Rfl: [place]-3 Fatty Acids (OMEGA 3 500 PO), Take [...] Cancer Mother (more content not included)... Normal [facility] Oncology Visit Reporton Oncology Visit Report Normal [facility] 36on 10-24-2024 36 Case reviewed - advanced small cell lung cancer *The patient's OARRS report was obtained and reviewed.* Normal [facility] [address] Fortune, pt needs a prescription sent for percocet 5/325mg, 1 tab Q6 hours PRN. Normal [facility] 36 Received call from Alee Napper Fixer at [facility]. Per Alee, they are aware patient now has oncology appt in [place], but they are tryoing to have her seen at [place] sooner. Right faxed MRI brain and PET reports to providers at [place] in case she returns to them for oncology care. Also requested images be pushed to provider. Normal [facility] Progress Noteon 10-24-2024 Progress Note OARRS reviewed Normal [facility] Progress Note [facility] [address] [facility] [address] Dept: [phone] Dept Loc: [phone] Patient was identified and seen today via [...] stated that they are currently in the [facility]. If the patient is a minor, [...] etiology. Per note, pt had presented to [place] ED in August 2023 for dyspnea. CTA [...] consistent with malignancy. Patient was hospitalized at [facility] on 10/05/24 for shortness of breath, then transferred to [facility] for ongoing care. An US guided [...] follow with her oncologist Dr. Chance in [place]. MRI brain on 10/17/24 was normal. PET [...] increased FD (more content not included)... Normal [facility] 12 Lead EKGon 10-21-2024 12 Lead EKG Normal [facility] Absolute lymphocyte countOrd ered By: Tay Dumont on 10-21-2024 Lymphocytes Auto (Unsp spec) [#/Vol] 0.90 10*3/uL 0.83-4.51 [facility] Absolute neutrophil countOrd ered By: Tay Dumont on 10-21-2024 Neutrophils (Bld) [#/Vol] 4.0 10*3/uL 2.0-7.7 [facility] Anion gap in Serum or Plasma Ordered By: Tay Dumont on 10-21-2024 Anion gap [Moles/Vol] 14 mmol/L 5-15 [facility] Automated lymphocyte count a s percentage of total leukocytesOrdered By: Tay Dumont on 10-21-2024 Lymphocytes/100 WBC Auto (Unsp spec) 16.1 % Low 19-41 [facility] BUN/creatinine ratioOrdered By: Tay Dumont on 10-21-2024 Urea nitrogen/Creatinine [Mass ratio] 9.8 mg/mg Low 10-20 [facility] Basic Metabolic Profile (BMP )on 10-21-2024 BUN/CRE 9.8 RATIO Low 10-20 [facility] Comment on above: Performed By: #### L 500.2500, L100.0100 ####[facility] [address] [place], [address] Calcium [Mass/Vol] 9.2 mg/dL Normal 7.6-11.0 [facility] Comment on above: Performed By: #### L 500.2500, L100.0100 ####[facility] [address] [place], [address] Chloride [Moles/Vol] 102 mmol/L Normal 98-108 [facility] Comment on above: Performed By: #### L 500.2500, L100.0100 ####[facility] [address] [place], [address] CO2 [Moles/Vol] 24.0 mmol/L Normal 21.0-32.0 [facility] Comment on above: Performed By: #### L 500.2500, L100.0100 ####[facility] [address] [place], [address] Creatinine [Mass/Vol] 1.02 mg/dL Normal 0.70-1.20 [facility] Comment on above: Performed By: #### L 500.2500, L100.0100 ####[facility] [address] [place], [address] ECRCL 48.29 ml/min Low 50-250 [facility] Comment on above: Performed By: #### L 500.2500, L100.0100 ####[facility] [address] [place], [address] GAP 14 Normal 5-15 [facility] Comment on above: Performed By: #### L 500.2500, L100.0100 ####[facility] [address] [place], [address] GFR/1.73 sq M.predicted among non-blacks MDRD (S/P/Bld) [Vol rate/Area] 58 mL/min/{1.73_m2} Low >60 [facility] Comment on above: Result Comment: mL/m in/1.73m2 CKD-EPI Creatinine Equation (2020) Performed By: #### L 500.2500, L100.0100 ####[facility] [address] [place], [address] Glucose [Mass/Vol] 99 mg/dL Normal 70-99 [facility] Comment on above: Performed By: #### L 500.2500, L100.0100 ####[facility] [address] [place], [address] Potassium [Moles/Vol] 3.7 mmol/L Normal 3.3-5.1 [facility] Comment on above: Performed By: #### L 500.2500, L100.0100 ####[facility] [address] [place], [address] Sodium [Moles/Vol] 140 mmol/L Normal 133-145 [facility] Comment on above: Performed By: #### L 500.2500, L100.0100 ####[facility] [address] [place], [address] Urea nitrogen [Mass/Vol] 10 mg/dL Normal 4-19 [facility] Comment on above: Performed By: #### L 500.2500, L100.0100 ####[facility] [address] [place], [address] Basophil percentageOrdered B y: Tay Dumont on 10-21-2024 Basophils/100 WBC (Bld) 0.2 % 0-1 [facility] CBC W/Diff, Automatedon Absolute Lymph 0.90 X10 3/uL Normal 0.83-4.51 [facility] Comment on above: Performed By: #### L 500.2500, L100.0100 ####[facility] [address] [place], [address] Absolute Neut 4.0 X10 3/uL Normal 2.0-7.7 [facility] Comment on above: Performed By: #### L 500.2500, L100.0100 ####[facility] [address] [place], [address] Basophils/100 WBC (Bld) 0.2 % Normal 0-1 [facility] Comment on above: Performed By: #### L 500.2500, L100.0100 ####[facility] [address] [place], [address] Eosinophils/100 WBC (Bld) 0.2 % Normal 0-5 [facility] Comment on above: Performed By: #### L 500.2500, L100.0100 ####[facility] [address] [place], [address] Erythrocyte distribution width (RBC) [Ratio] 17.9 % High 11.6-14.6 [facility] Comment on above: Performed By: #### L 500.2500, L100.0100 ####[facility] [address] [place], [address] Hematocrit (Bld) [Volume fraction] 37.6 % Normal 37-47 [facility] Comment on above: Performed By: #### L 500.2500, L100.0100 ####[facility] [address] [place], [address] Hemoglobin (Bld) [Mass/Vol] 11.7 g/dL Low 12.0-15.0 [facility] Comment on above: Performed By: #### L 500.2500, L100.0100 ####[facility] [address] [place], [address] IG% 0.400 Normal 0.0-0.9 [facility] Comment on above: Result Comment: IG% - Immature Granulocytes (promyelocytes, myelocytes andmetamyelocytes) > 1% indicates that a LEFT SHIFT is Present. Performed By: #### L 500.2500, L100.0100 ####[facility] [address] [place], [address] Lymphocytes/100 WBC (Bld) 16.1 % Low 19-41 [facility] Comment on above: Performed By: #### L 500.2500, L100.0100 ####[facility] [address] [place], [address] MCH (RBC) [Entitic mass] 25.7 pg Low 27.0-32.0 [facility] Comment on above: Performed By: #### L 500.2500, L100.0100 ####[facility] [address] [place], [address] MCHC (RBC) [Mass/Vol] 31.1 g/dL Low 32-36 [facility] Comment on above: Performed By: #### L 500.2500, L100.0100 ####[facility] [address] [place], [address] MCV (RBC) [Entitic vol] 82.6 fL Normal 81-99 [facility] Comment on above: Performed By: #### L 500.2500, L100.0100 ####[facility] [address] [place], [address] Monocytes/100 WBC (Bld) 12.4 % High 0-10 [facility] Comment on above: Performed By: #### L 500.2500, L100.0100 ####[facility] [address] [place], [address] Neutrophils/100 WBC (Bld) 70.7 % High 47-70 [facility] Comment on above: Performed By: #### L 500.2500, L100.0100 ####[facility] [address] [place], [address] Nucleated RBC (Bld) [#/Vol] 0 10*3/uL Normal 0-5 [facility] Comment on above: Performed By: #### L 500.2500, L100.0100 ####[facility] [address] [place], [address] Platelet mean volume (Bld) [Entitic vol] 8.6 fL Normal 6.2-12.0 [facility] Comment on above: Performed By: #### L 500.2500, L100.0100 ####[facility] [address] [place], [address] Platelets (Bld) [#/Vol] 335 10*3/uL Normal 150-450 [facility] Comment on above: Performed By: #### L 500.2500, L100.0100 ####[facility] [address] [place], [address] RBC (Bld) [#/Vol] 4.55 10*6/uL Normal 4.2-5.4 [facility] Comment on above: Performed By: #### L 500.2500, L100.0100 ####[facility] [address] [place], [address] RDW SD 53.9 fl High 35.1-43.9 [facility] Comment on above: Performed By: #### L 500.2500, L100.0100 ####[facility] [address] [place], [address] WBC (Bld) [#/Vol] 5.6 10*3/uL Normal 4.4-11.0 [facility] Comment on above: Performed By: #### L 500.2500, L100.0100 ####[facility] [address] [place], [address] Carbon dioxide, total [Moles /volume] in Central venous bloodOrdered By: Tay Dumont on 10-21-2024 CO2 [Moles/Vol] 24.0 mmol/L 21.0-32.0 [facility] Chest 1 View (Portable)on Chest 1 View (Portable) Normal [facility] Chloride assayOrdered By: Dakota Dumont on 10-21-2024 Chloride [Moles/Vol] 102 mmol/L 98-108 [facility] Emergency Department Summary on 10-21-2024 Emergency Department Summary Normal [facility] Eosinophil percentageOrdered By: Tay Dumont on 10-21-2024 Eosinophils/100 WBC (Bld) 0.2 % 0-5 [facility] Erythrocyte distribution wid th (RBC) [Ratio]Ordered By: Tay Dumont on 10-21-2024 Erythrocyte distribution width (RBC) [Entitic vol] 53.9 fL High 35.1-43.9 [facility] Erythrocyte distribution wid th ratioOrdered By: Tay Dumont on 10-21-2024 Erythrocyte distribution width (RBC) [Ratio] 17.9 % High 11.6-14.6 [facility] Erythrocyte distribution wid th standard deviationOrdered By: Tay Dumont on 10-21-2024 Erythrocyte distribution width (RBC) [Ratio] 53.9 fl High 35.1-43.9 [facility] Estimation of creatinine nikki aranceOrdered By: Tay Dumont on 10-21-2024 Estimated Creatinine Clearance Calc 48.29 ml/min Low 50-250 [facility] GFR/1.73 sq M.predicted ty g non-blacks MDRD (S/P/Bld) [Vol rate/Area]Ordered By: Tay Dumont on 10-21-2024 Estimated GFR (MDRD) Non-Af Amer 58 Low >60 [facility] Comment on above: mL/min/1.73m2 CKD-EP I Creatinine Equation (2020) Glomerular filtration rate ( GFR) estimation/1.73 sq m using serum, plasma, or whole bOrdered By: Tay Dumont on 10-21-2024 GFR/1.73 sq M.predicted among non-blacks MDRD (S/P/Bld) [Vol rate/Area] 58 mL/min/{1.73_m2} Low >60 [facility] Comment on above: mL/min/1.73m2 CKD-EP I Creatinine Equation (2020) Hematocrit Auto (Bld) [Volum e fraction]Ordered By: Tay Dumont on 10-21-2024 Hematocrit (Bld) [Volume fraction] 37.6 % 37-47 [facility] Hemoglobin measurementOrdere d By: Tay Dumont on 10-21-2024 Hemoglobin (Bld) [Mass/Vol] 11.7 g/dL Low 12.0-15.0 [facility] Immature granulocytes/100 WB C Auto (Bld)Ordered By: Tay Dumont on 10-21-2024 Immature granulocytes/100 WBC (Bld) 0.400 % 0.0-0.9 [facility] Comment on above: IG% - Immature Granu locytes (promyelocytes, myelocytes and metamyelocytes) > 1% indicates that a LEFT SHIFT is Present. Lymphocytes Auto (Unsp spec) [#/Vol]Ordered By: Tay Dumont on 10-21-2024 Lymphocytes (Bld) [#/Vol] 0.90 10*3/uL 0.83-4.51 [facility] Lymphocytes/100 WBC Auto (Un sp spec)Ordered By: Tay Dumont on 10-21-2024 Lymphocytes/100 WBC (Bld) 16.1 % Low 19-41 [facility] MCV (mean corpuscular volume ) determinationOrdered By: Tay Dumont on 10-21-2024 MCV (RBC) [Entitic vol] 82.6 fL 81-99 [facility] Mean corpuscular hemoglobin (MCH) determinationOrdered By: Tay Dumont on 10-21-2024 MCH (RBC) [Entitic mass] 25.7 pg Low 27.0-32.0 [facility] Mean corpuscular hemoglobin concentration (MCHC) determinationOrdered By: Tay Dumont on 10-21-2024 MCHC (RBC) [Mass/Vol] 31.1 g/dL Low 32-36 [facility] Mean platelet volume determi nationOrdered By: Tay Dumont on 10-21-2024 Platelet mean volume (Bld) [Entitic vol] 8.6 fL 6.2-12.0 [facility] Monocyte percentageOrdered B y: Tay Dumont on 10-21-2024 Monocytes/100 WBC (Bld) 12.4 % High 0-10 [facility] Neutrophil percentageOrdered By: Tay Dumont on 10-21-2024 Neutrophils/100 WBC (Bld) 70.7 % High 47-70 [facility] Nucleated red blood cell per centageOrdered By: Tay Dumont on 10-21-2024 Nucleated RBC/100 WBC (Bld) [Ratio] 0 % 0-5 [facility] Platelet countOrdered By: Dakota Dumont on 10-21-2024 Platelets (Bld) [#/Vol] 335 10*3/uL 150-450 [facility] Potassium (Unsp spec) [Mass/ Vol]Ordered By: Tay Dumont on 10-21-2024 Potassium [Moles/Vol] 3.7 mmol/L 3.3-5.1 [facility] Potassium measurement (mass/ volume)Ordered By: Tay Dumont on 10-21-2024 Potassium (Unsp spec) [Mass/Vol] 3.7 mmol/L 3.3-5.1 [facility] RBC Auto (Bld) [#/Vol]Ordere d By: Tay Dumont on 10-21-2024 RBC (Bld) [#/Vol] 4.55 10*6/uL 4.2-5.4 [facility] Serum creatinine measurement (mass/volume)Ordered By: Tay Dumont on 10-21-2024 Creatinine [Mass/Vol] 1.02 mg/dL 0.70-1.20 [facility] Serum glucose measurement (m ass/volume)Ordered By: Tay Dumont on 10-21-2024 Glucose [Mass/Vol] 99 mg/dL 70-99 [facility] Serum or plasma calcium usman urement (mass/volume)Ordered By: Tay Dumont on 10-21-2024 Calcium [Mass/Vol] 9.2 mg/dL 7.6-11.0 [facility] Serum or plasma urea nitroge n measurement (mass/volume)Ordered By: Tay Dumont on 10-21-2024 Urea nitrogen [Mass/Vol] 10 mg/dL 4-19 [facility] Sodium levelOrdered By: Tay Dumont on 10-21-2024 Sodium [Moles/Vol] 140 mmol/L 133-145 [facility] White blood cell (WBC) count Ordered By: Tay Dumont on 10-21-2024 WBC (Bld) [#/Vol] 5.6 10*3/uL 4.4-11.0 [facility] Progress Noteon 10-20-2024 Progress Note This patient has been referred to the oncology team. The staging PET scan should be addressed by the multidisciplinary team. Giving him the diagnosis and extent of disease, surgical resection is not indicated. Normal [facility] 36on 10-18-2024 36 Pt daughter notified [facility] 36 Script sent [place] [address] Navigator received callback from patient's daughter Diaz. Patient's daughter reports that since we are able to expedite MRI and PET scan, oncology appointment has been moved up to 10/31/2024, but this is just tentative appointment as her oncology provider in [place] is out of town and may not be back until 11/06/2024. Daughter would like Dr. 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 Normal [facility] 36 Pt daughter called and states that pt is claustrophobic. Dr. Fortune ordered a PET scan which is scheduled on 10/20/24. She is requesting something to help with anxiety prior to scan. She states what she was given for MRI brain worked great. Pharmacy confirmed. Please advise. Previous prescription was Xanax 0.5 mg tablet. Normal [facility] 36on 10-17-2024 36 Navigator contacted patient's daughter by phone. They would like first available PET scan at any location. She is currently scheduled 10/30/24. Moved up PET scan appointment to Faxed records including path report, thoracentesis report, thoracic conference recommendations, CTS and pulmonary and cardiology consults to patient's regular oncologist, Dr. Dunham and release coordinator Rhiannon Georges in [place]. Patient has medical oncology appointment 11/06/24 but will try to move appointment sooner after PET scan. Navigator will send PET and MRI reports to providers once final . [facility] 37on 10-17-2024 37 YOUR APPOINTMENT TODAY WAS WITH THE [facility] LUNG NODULE CLINIC, COPD CLINIC, PULMONARY AND SLEEP MEDICINE OFFICE. PLEASE CALL OUR OFFICE AT [phone] IF YOU HAVE NOT RECEIVED YOUR TEST [...] to make improvements. COVID-19 VACCINATION INFORMATION: PH. [phone] HEALTH.ORG/CORONAVIR US/VACCINE [facility] Central Scheduling [phone] [facility] Sleep Scheduling [phone] [facility] Office Visiton 10-17-2024 Follow-up visit [id number] Karina Fernando 1950 F Date Provider Department Center 10/17/2024 [id number] ASS, C*[facility] None Family History Problem Relation Age of Onset Cancer Mother Cancer Father No Known Problems Sister No Known Problems Brother Heart disease Brother Family Status - Relation Status Age at Mother Father Sister Alive Brother Alive Brother Alive Level of Service:09654 [place] OFFICE/OUTPATIENT ESTABLISHED MOD MDM 30 MIN Reason for Visit and Comments: Follow-up [043294] [facility] Progress Noteon 10-17-2024 Progress Note [facility], Pulmonary Critical Care Medicine [address] [place], [place] [id number] Pulmonary Patient Visit 10/17/2024 Referring Physician: TU HECTOR DO Reason for Referral: SOB 10/03/24 History of Present Illness Karina Fernando is a 73 y.o. F with history of recurrent sinus infections, COPD on symbicort/albuterol, HTN who presented for a left hilar mass. Stated that in May she began having shortness of breath which worsened until she went to the ER in [place] in August. Found on CT with a left hilar mass, left upper lobe pleural-based mass, and moderate pericardial effusion. Evaluated by oncology and recommended for PET/CT, MRI brain, and biopsy. Established with pulmonology and had been planned for EBUS in [place] but canceled after TTE demonstrated a right [...] Previously normal 10/17/24 Patient was hospitalized in [place] ER for worsening pain and shortness of breath, unchanged. Transferred to [facility]. S/p bronchoscopy 10/09/[address] Mejia. [...] Dose Status acetaminophen (Tylenol) 325 MG tablet [id number] Take 2 tablets (650 mg) by mouth every 6 hours as needed for mild pain (1-3) or fever (For temp greater than 100.4 F (38 C)) for up to 10 days. Patient not taking: Reported on 10/09/2024 Emile Horne DO 10/16/24 8560 albuterol (Ventolin HFA) 108 (90 Base) MCG/ACT inhaler [id number] Yes Inhale 2 puffs every 4 hours as needed for wheezing or shortness of breath. Rachel Johnson, DO Active ALPRAZolam (Xanax) 0.5 MG tablet [id number] Take 1 tablet (0.5 mg) by mouth 1 time for 1 dose. Take 30 minutes prior to MRI Lisandra Godinezjoseph, [employer] - NURSING [employer]AC[employer]Y 10/10/24 2359 Discontinued 10/17/24 1119 budesonide-formotero l (Symbicort) 80-4.5 MCG/ACT inhaler [id number] Inhale 2 puffs 2 times daily. Rachel Johnson, DO Active busPIRone (Buspar) 10 MG tablet [id number] Yes Take 10 mg by mouth 3 times daily as needed. Historical Provider, Active cholecalciferol (Vitamin D-3) 25 MCG (1000 UT) capsule [id number] Yes Take 1,000 Units by mouth daily. Historical Provider, Active ipratropium-albutero l (Duo-Neb) 0.5-2.5 mg/3 mL nebulizer solution [id number] Yes Take 3 mL by nebulization every 6 hours. Historical Provider, Active loratadine (Claritin) 5 MG chewable tablet [id number] Yes Chew 5 mg daily. Historical Provider, Active Melatonin 2.5 MG chewable tablet [id number] Yes Chew Daily as needed. Historical Provider, Active Multiple Vitamin (multivitamin) capsule [id number] Yes Take 1 capsule by mouth daily. Historical Provider, Active [place]-3 Fatty Acids (OMEGA 3 500 PO) [id number] Yes Take by mouth daily. Historical Provider, Active oxyCODONE-acetaminop hen (Percocet) 7.5-325 MG tablet [id number] Take 1 tablet by mouth every 6 hours as needed for moderate pain (4-6) for up to 5 days. Emile Horne DO (more content not included)... Normal [facility] Progress Note THORACIC ONCOLOGY AND LUNG NODULE [...] do recommendations for candace CTC: SK MR#/Epic [id number] Oncologist: Dr. Mauri Chance ([place]) CTAP: /Age [birth year] 73 yo Rad Oncologist MRI: 10/17/24 Gender Female Vascular Technologist Sonographer: Dr. Lacho Kamara/ [facility] PET: 10/30/24 Smoking History: ? Former 40 pk yr Quit 05/2024 PCP: Dr. Tu Hector PFT: 09/25/24 @ [facility] ?Prospective []Retrospective Laborer [place]bark: Dr. Luis PATH: EBUS/TBBX 10/09/24; US Thora 10/06/24; Thyroid bx- [place] 10/10/24 (path pending) Clinical Stage: unable to stage : @ least N2 dz Path Stage: T N M Barium Swallow 10/06/24 Brief Summary Known COPD was seen in ED at [place] for eval of worsening SOB, Left shoulder, back, and lung pain, and dizziness. CT in [place] noted a left hilar mass, LEYLA mass and adenopathy, R atrial mass, pericardial effusion and thyroid nodules. Evaluated by [place] med onc and recommended to have PET, MRI and biopsy. Sent to [facility] CTS and arranged same day urgent appts with pulmonary and cardiology. Sent for EBUS and now presents to review imaging, path, staging and plan of care. * Also completed thyroid bx @ [place] and path results are pending Recommendations: 1. [...] plan may differ from this recommendation. Normal [facility] 36on 10-11-2024 36 Pt daughter notified. Confirmed with pharmacy that prescription is ready for pickup. Normal [facility] 36on 10-10-2024 36 Script sent for 1 time dose prior to MRI- please notify patient Normal [facility] 36 Pt called and states she is claustrophobic. Dr. Fortune ordered an MRI brain which is scheduled on 10/17/24. Pt is requesting something to help with anxiety prior to scan. Pharmacy confirmed. Please advise. Normal [facility] Culture, Blood (WB)on 2024 CUB Blood cultures x2, from two different sites No growth in 5 days. Normal [facility] Comment on above: Performed By: #### L 503.6005, L500.4050, L300.3900, L100.0100, L300.4310, M200.1000 ####[facility] [id number] [place], [place], [id number] FNA 1st Biopsy w/ USon 10-10 FNA 1st Biopsy w/ US Normal [facility] Special Stain Group IIon Special Stain Group II Normal [facility] Comment on above: Performed By: #### P SSII ####[facility] [id number] [place], [place], [address] 36on 10-09-2024 36 Taresa notified. Normal [facility] AFB CULTUREon 10-09-2024 AFB CULTURE AFB CULTURE Reference No growth at 6 weeks AFB STAIN Reference No acid fast bacilli seen by fluorescent microscopy ORDER COMMENTS: Stain Reference Range: No acid fast bacilli seen by fluorescent microscopy. [ S = SUSCEPTIBLE R = RESISTANT I = INTERMEDIATE S-DD = Susceptible-dose dependent NS = Non-susceptible NO = No Interpretation ] Normal [facility] Comment on above: Performed By: #### L [id number] ####[employer] Burnisher: GUERDA WEBBER ([id number])[facility] ([address] FUNGAL CULTUREon 10-09-2024 FUNGAL CULTURE FUNGAL CULTURE Reference No fungus isolated after 21 days [ S = SUSCEPTIBLE R = RESISTANT I = INTERMEDIATE S-DD = Susceptible-dose dependent NS = Non-susceptible NO = No Interpretation ] [facility] Comment on above: Performed By: #### L [id number] #### [employer]isher: GUERDA WEBBER ([id number]) [facility]) [address] [place] [address] FUNGAL STAINon 10-09-2024 FUNGAL STAIN FUNGAL STAIN Reference No fungal elements seen ORDER COMMENTS: Reference Range: No fungal elements seen [ S = SUSCEPTIBLE R = RESISTANT I = INTERMEDIATE S-DD = Susceptible-dose dependent NS = Non-susceptible NO = No Interpretation ] Normal [facility] Comment on above: Performed By: #### L [id number], [id number] ####[employer]: GUERDA WEBBER ([phone])[facility])[address] [place] [address] RESPIRATORY CULTURE AND STAI Non 10-09-2024 RESPIRATORY [...] = Non-susceptible NO = No Interpretation ] [facility] Comment on above: Performed By: #### L AB900, [id number] ####[employer]isher: GUERDA WEBBER ([id number])[facility])[address] [place] [address] 30on 10-06-2024 30 Patient discharged Problem: Pain [...] monitored and maintained or improved Outcome: Completed Normal [facility] [id number] 10-06-2024 [id number] Pt adm for tx/ eval of SOB- found to have pleural effusion. RA currently. US guided thoracentesis, XR chest and barium swallow completed. Spoke with pt and family, introduced self and roll. Pt plans to return home- no needs. Normal [facility] CBC W Auto Differential pane l (Bld)on 10-06-2024 Basophils (Bld) [#/Vol] 0 10*3/uL 0.0 - 0.2 10*3/uL [facility] Basophils/100 WBC (Bld) 0.6 % 0.0 - 2.0 % [facility] Eosinophils (Bld) [#/Vol] 0 10*3/uL 0.0 - 0.5 10*3/uL [facility] Eosinophils/100 WBC (Bld) 0.6 % 0.0 - 6.0 % [facility] Bablic Erythrocyte distribution width (RBC) [Ratio] 18.8 % High 11.5 - 15.0 % [facility] Bablic Hematocrit (Bld) [Volume fraction] 34.4 % Low 35.0 - 47.0 % [facility] Hemoglobin (Bld) [Mass/Vol] 11 g/dL Low 11.7 - 16.0 g/dL [facility] Bablic Immature granulocytes (Bld) [#/Vol] 0 10*3/uL NINF - 0.1 10*3/uL [facility] Bablic Immature granulocytes/100 WBC (Bld) 0.3 % 0.0 - 2.0 % [facility] Interpretation and review of laboratory results Abnormal [facility] Bablic Lymphocytes (Bld) [#/Vol] 0.7 10*3/uL Low 1.0 - 4.3 10*3/uL [facility] Bablic Lymphocytes/100 WBC (Bld) 20.2 % 15.0 - 45.0 % [facility] MCH (RBC) [Entitic mass] 25.9 pg Low 26.0 - 34.0 pg [facility] Bablic MCHC (RBC) [Mass/Vol] 32 % 30.5 - 36.0 % [facility] MCV (RBC) [Entitic vol] 80.9 fL 77.0 - 99.0 fL [facility] Bablic Monocytes (Bld) [#/Vol] 0.6 10*3/uL 0.0 - 0.9 10*3/uL [facility] Monocytes/100 WBC (Bld) 16.4 % High 5.0 - 13.0 % [facility] Neutrophils (Bld) [#/Vol] 2.2 10*3/uL 1.8 - 7.5 10*3/uL [facility] Neutrophils/100 WBC (Bld) 61.9 % 38.0 - 82.0 % [facility] Nucleated RBC/100 WBC (Bld) [Ratio] 0 % [facility] Platelet mean volume (Bld) [Entitic vol] 8.9 fL Low 9.0 - 12.7 fL [facility] Platelets (Bld) [#/Vol] 226 10*3/uL 140 - 440 10*3/uL [facility] RBC (Bld) [#/Vol] 4.25 10*6/uL 3.80 - 5.2 0 10*6/uL [facility] WBC (Bld) [#/Vol] 3.5 10*3/uL Low 3.6 - 10.7 10*3/uL [facility] CBC WITH AUTO DIFFERENTIALon 10-06-2024 Basophils (Bld) [#/Vol] 0.0 10*3/uL Normal 0.0-0.2 [facility] Comment on above: Performed By: #### L [id number] ####[employer]isher: GUERDA WEBBER ([id number])[facility])[address] [place] [address] Basophils/100 WBC (Bld) 0.6 % Normal 0.0-2.0 [facility] Comment on above: Performed By: #### L [id number] ####[employer]isher: GUERDA WEBBER ([id number])[facility] ([facility])[address] [place] [address] Eosinophils (Bld) [#/Vol] 0.0 10*3/uL Normal 0.0-0.5 [facility] Comment on above: Performed By: #### L [id number] ####[employer]isher: GUERDA WEBBER ([phone])[facility] ([facility])[address] [place] [address] [place] Eosinophils/100 WBC (Bld) 0.6 % Normal 0.0-6.0 [facility] Comment on above: Performed By: #### L [id number] ####[employer]isher: GUERDA WEBBER ([id number])[facility])[address] [place] [address] Erythrocyte distribution width (RBC) [Ratio] 18.8 % High 11.5-15.0 [facility] Comment on above: Performed By: #### L [id number] ####[employer]isher: GUERDA WEBBER ([id number])[facility])[address] [place] [address] Hematocrit (Bld) [Volume fraction] 34.4 % Low 35.0-47.0 [facility] Comment on above: Performed By: #### L [id number] ####[employer]: GUERDA WEBBER ([id number])[address] Hemoglobin (Bld) [Mass/Vol] 11.0 g/dL Low 11.7-16.0 [facility] Comment on above: Performed By: #### L [id number] ####[place] [place] [employer]isher: GUERDA WEBBER ([id number])[facility])[address] [place] [address] IMMATURE GRANS % 0.3 % Normal 0.0-2.0 [facility] Comment on above: Performed By: #### L [id number] ####[employer] [place] [employer]isher: GUERDA WEBBER ([phone])[facility])[address] [place] [address] IMMATURE GRANS ABSOLUTE 0.0 10*3/uL Normal <0.1 [facility] Comment on above: Performed By: #### L [id number] ####[employer]isher: GUERDA WEBBER ([phone])[facility])[address] [place] [address] Lymphocytes (Bld) [#/Vol] 0.7 10*3/uL Low 1.0-4.3 [facility] Comment on above: Performed By: #### L [id number] ####[employer]isher: GUERDA WEBBER ([id number])[facility])[address] [place] [address] Lymphocytes/100 WBC (Bld) 20.2 % Normal 15.0-45.0 [facility] Comment on above: Performed By: #### L [id number] ####[employer]isher: GUERDA WEBBER ([id number])[facility])[address] [place] [address] MCH (RBC) [Entitic mass] 25.9 pg Low 26.0-34.0 [facility] Comment on above: Performed By: #### L [id number] ####[employer]isher: GUERDA WEBBER ([id number])[address] MCHC 32.0 % Normal 30.5-36.0 [facility] Comment on above: Performed By: #### L [id number] ####[employer]isher: GUERDA WEBBER ([id number])[facility])[address] [place] [address] MCV (RBC) [Entitic vol] 80.9 fL Normal 77.0-99.0 S [facility] Comment on above: Performed By: #### L [id number] ####[employer]isher: GUERDA WEBBER ([id number])[facility])[address] [place] [address] Monocytes (Bld) [#/Vol] 0.6 10*3/uL Normal 0.0-0.9 [facility] Comment on above: Performed By: #### L [id number] ####[employer]isher: GUERDA WEBBER ([phone])[facility])[address] [place] [address] Monocytes/100 WBC (Bld) 16.4 % High 5.0-13.0 [facility] Comment on above: Performed By: #### L [id number] ####[employer]isher: GUERDA [id number])[facility] ([facility])[address] [place] [address] NEUTROPHILS ABSOLUTE 2.2 10*3/uL Normal 1.8-7.5 [facility] Comment on above: Performed By: #### L [id number] ####[employer]isher: GUERDA WEBBER ([id number])[facility] ([facility])[address] [place] [address] Neutrophils/100 WBC (Bld) 61.9 % Normal 38.0-82.0 [facility] Comment on above: Performed By: #### L [id number] ####[employer]isher: GUERDA WEBBER ([id number])[facility] ([facility])[address] [place] [address] NRBC 0.0 /100 WBCs Normal 0.0-2.0 [facility] Comment on above: Performed By: #### L [id number] ####[employer]isher: GUERDA WEBBER ([id number])[facility] ([facility])[address] [place] [address] Platelet mean volume (Bld) [Entitic vol] 8.9 fL Low 9.0-12.7 [facility] Comment on above: Performed By: #### L [id number] ####[employer]isher: GUERDA WEBBER ([id number])[facility] ([facility])[address] [place] [address] Platelets (Bld) [#/Vol] 226 10*3/uL Normal 140-440 [facility] Comment on above: Performed By: #### L [id number] ####[employer]isher: GUERDA WEBBER ([id number])[facility] ([facility])[address] [place] [address] RBC (Bld) [#/Vol] 4.25 10*6/uL Normal 3.80-5.20 [facility] Comment on above: Performed By: #### L [id number] ####[employer]isher: GUERDA WEBBER ([id number])[facility] ([facility])[address] [place] [address] WBC (Bld) [#/Vol] 3.5 10*3/uL Low 3.6-10.7 [facility] Comment on above: Performed By: #### L [id number] ####[employer]isher: GUERDA WEBBER ([id number])[facility] ([facility])[address] [place] [address] COMPREHENSIVE METABOLIC PANE Duran 10-06-2024 Albumin [Mass/Vol] 3.0 g/dL Low 3.4-4.8 [facility] Comment on above: Performed By: #### L AB17, [id number] #### [employer]isher: GUERDA WEBBER ([id number]) [facility] ([facility]) [address] [place] [address] ALP [Catalytic activity/Vol] 45 U/L Normal 40-150 [facility] Comment on above: Performed By: #### L AB17, [id number] #### [employer]isher: GUERDA WEBBER ([id number]) [facility] ([facility]) [address] [place] [address] ALT [Catalytic activity/Vol] 9 U/L Normal <30 [facility] Comment on above: Performed By: #### L AB17, [id number] #### [employer]isher: GUERDA WEBBER ([id number]) [facility] ([facility]) [address] [place] [address] Anion gap [Moles/Vol] 8 mmol/L Normal 3-13 [facility] Comment on above: Performed By: #### L AB17, [id number] #### [employer]isher: GUERDA WEBBER ([id number]) [facility] ([facility]) [address] [place] [address] AST [Catalytic activity/Vol] 17 U/L Normal <34 [facility] Comment on above: Performed By: #### L AB17, [id number] #### [employer]isher: GUERDA WEBBER ([id number]) [facility] ([facility]) [address] [place] [address] Bilirubin [Mass/Vol] 0.3 mg/dL Normal <1.2 [facility] Comment on above: Performed By: #### L AB17, [id number] #### [employer]isher: GUERDA WEBBER ([id number]) [facility] ([facility]) [address] [place] [address] Calcium [Mass/Vol] 9.0 mg/dL Normal 8.8-10.0 [facility] Comment on above: Performed By: #### L AB17, [id number] #### [employer]isher: GUERDA WEBBER ([id number]) [facility] ([facility]) [address] [place] [address] [place] Chloride [Moles/Vol] 106 mmol/L Normal 98-107 [facility] Comment on above: Performed By: #### L AB17, [id number] #### [employer]isher: GUERDA WEBBER ([id number]) [facility] ([facility]) [address] [place] [address] CO2 [Moles/Vol] 27 mmol/L Normal 23-31 [facility] Comment on above: Performed By: #### L AB17, [id number] #### [employer]isher: GUERDA WEBBER ([id number]) [facility] ([facility]) [address] [place] [address] [place] Creatinine [Mass/Vol] 0.83 mg/dL Normal 0.57-1.11 [facility] Comment on above: Performed By: #### L AB17, [id number] #### [employer]isher: GUERDA WEBBER ([id number]) [facility] ([facility]) [address] [place] [address] [place] GLOMERULAR FILTRATION RATE ML/MIN/1.73 SQ M.PREDICTED 75.0 mL/min/1.73m*2 Normal >60.0 [facility] Comment on above: Result Comment: Calc ulation based on the Chronic Kidney Disease Epidemiology Collaboration (CKD-EPI) equation refit without adjustment for race Performed By: #### L AB17, [id number] #### [employer]isher: GUERDA WEBBER ([id number]) [facility] ([facility]) [address] [place] [address] [place] Glucose [Mass/Vol] 92 mg/dL Normal 82-115 [facility] Comment on above: Performed By: #### L AB17, [id number] #### [employer]isher: GUERDA WEBBER ([id number]) [facility] ([facility]) [address] [place] [address] Potassium [Moles/Vol] 3.3 mmol/L Low 3.5-5.1 [facility] Comment on above: Result Comment: [facility] potassium values may be up to 0.5 mmol/L lower than serum values. Performed By: #### L AB17, [id number] #### [employer]isher: GUERDA WEBBER ([id number]) [facility] ([facility]) [address] [place] [address] Protein [Mass/Vol] 6.2 g/dL Low 6.4-8.3 [facility] Comment on above: Performed By: #### L AB17, [id number] #### [employer]isher: GUERDA WEBBER ([id number]) [facility] ([facility]) [address] [place] [address] Sodium [Moles/Vol] 141 mmol/L Normal 136-145 [facility] Comment on above: Performed By: #### L AB17, [id number] #### [employer]isher: GUERDA WEBBER ([id number]) [facility] ([facility]) [address] [place] [address] Urea nitrogen [Mass/Vol] 8 mg/dL Low 9-23 [facility] Comment on above: Performed By: #### L AB17, [id number] #### [employer]isher: GUERDA WEBBER ([id number]) [facility] [facility] [address] [place] [address] Comprehensive metabolic 1998 panelon 10-06-2024 Albumin [Mass/Vol] 3 g/dL Low 3.4 - 4.8 g/dL [facility] ALP [Catalytic activity/Vol] 45 U/L 40 - 150 U/L [facility] ALT [Catalytic activity/Vol] 9 U/L NINF - 30 U/L [facility] Anion gap [Moles/Vol] 8 mmol/L 3 - 13 mmol/L [facility] AST [Catalytic activity/Vol] 17 U/L NINF - 34 U/L [facility] Bilirubin [Mass/Vol] 0.3 mg/dL NINF - 1.2 mg/dL [facility] Calcium [Mass/Vol] 9 mg/dL 8.8 - 10. 0 mg/dL [facility] Chloride [Moles/Vol] 106 mmol/L 98 - 10 7 mmol/L [facility] CO2 [Moles/Vol] 27 mmol/L 23 - 31 mmol/L [facility] Creatinine [Mass/Vol] 0.83 mg/dL 0.57 - 1.11 mg/dL [facility] GFR/1.73 sq M.predicted (S/P/Bld) [Vol rate/Area] 75 mL/min - PINF [facility] Comment on above: Calculation based on the Chronic Kidney Disease Epidemiology Collaboration (CKD-EPI) equation refit without adjustment for race Glucose [Mass/Vol] 92 mg/dL 82 - 115 mg/dL [facility] Interpretation and review of laboratory results Abnormal [facility] Potassium [Moles/Vol] 3.3 mmol/L Low 3.5 - 5.1 mmol/L [facility] Comment on above: Plasma potassium breana ues may be up to 0.5 mmol/L lower than serum values. Protein [Mass/Vol] 6.2 g/dL Low 6.4 - 8.3 g/dL [facility] Sodium [Moles/Vol] 141 mmol/L 136 - 145 mmol/L [facility] Urea nitrogen [Mass/Vol] 8 mg/dL Low 9 - 23 mg/dL [facility] Consulton 10-06-2024 Consult [facility] Pulmonary Medicine [address] [id number] [id number] - 1950 Date of Admission - 10/05/2024 8:10 PM Date of Evaluation - 10/06/2024 Room - [facility] A Hospital Day - 1 Consulting - Emile Horne DO PCP - TU HECTOR, DO I saw and evaluated the patient, participating in the rebollar portions of the service. I reviewed the resident?s note. I agree with the resident?s findings and plan. Assessment: 1 SOB 2 large left lung mass causing near complete atelectasis, scheduled for bronchoscopy on David 3 chest pain 4 COPD 5 former smoker Plan: 1 Home O2 evaluation 2 pain control 3 follow-up for procedure on Wednesday Randolph Biswas MD Reason for Consult Pleural effusion History of Present Illness Karina Fernando is a 73 y.o. female admitted for worsening shortness of breath. She presented to the emergency department at [facility] with worsening left shoulder, back, lung pain and lightheadedness when standing. Reportedly, she had also been experiencing voice changes and difficulty swallowing both liquids and solids with some swelling since February 2024. She is also been experiencing worsening headache, sensation of vertigo, ringing in her left ear, sensation of falling to the left side. At the [place] emergency department, she underwent a chest x-ray which demonstrated a large left-sided pleural effusion and so was sent for management to the [facility]. When I examined her this morning, she [...] for a previous hospital admission at the [facility] afebrile [address] chest had [...] mL, Nebulizat (more content not included)... Normal [facility] FL MODIFIED BARIUM WITH VIDE O AND SPEECHon 10-06-2024 FL MODIFIED BARIUM WITH VIDEO AND SPEECH Patient Name: KARINA FERNANDO : 1950 [id number] Exam Date/Time: 10/06/2024 08:57 Procedure: FL MODIFIED BARIUM WITH VIDEO AND SPEECH Ordering Provider: TAM CANDICE Reason For Exam: dysphagia in setting of thyroid nodule both liquid and solid MODIFIED BARIUM SWALLOW (COOKIE SWALLOW) CLINICAL INDICATION: Dysphagia. Concern for aspiration COMPARISON: None. FLUOROSCOPY DOSE: Kar= 9.38 mGy TECHNIQUE: The procedure was performed [...] Signed Date/Time: 10/06/2024 9:30 AM EDT Normal [facility] Laboratory - Chemistry and C hemistry - challengeon 10-06-2024 Glucose [Mass/Vol] 206 mg/dL High 70 - 100 mg/dL [facility] Glucose [Mass/Vol] 113 mg/dL High 70 - 100 mg/dL [facility] Magnesium [Mass/Vol] 1.9 mg/dL 1.6 - 2 .6 mg/dL [facility] MAGNESIUMon 10-06-2024 Magnesium [Mass/Vol] 1.9 mg/dL Normal 1.6-2.6 [facility] Comment on above: Result Comment: LILIBETH Gramajo COMMENTS: Higher values can be expected in females during menses. Performed By: #### L [id number], [id number] #### [employer] Burn[employer]: GUERDA WEBBER ([id number]) [facility] ([facility] [address] [place] [address] Magnesium [Mass/Vol]on 10-06 Interpretation and review of laboratory results Normal [facility] Higher values can be expected in females during menses. [facility] No Panel Informationon 10-06 Pleural effusion was too small to safely tap at this time, thoracentesis was not performed. If pleural fluid labs are clinically indicated, recommend short-term interval follow-up with IR to reassess fluid collection and possibly reattempt procedure. Report Dictated on Electronically Signed By: Mirta Hardin PA-C Electronically Signed Date/Time: 10/06/2024 3:55 PM EDT [facility] [employer] [facility] Patient Name: KARINA FERNANDO : 1950 Exam Date/Time: 10/06/2024 08:32 Procedure: US GUIDED THORACENTESIS Ordering Provider: TAM CANDICE Reason For Exam: left pleural effusion CLINICAL INFORMATION: Pleural effusion. Possible thoracentesis. PROCEDURE: The patient was placed seated on the ultrasound cart. A limited ultrasound of the left thorax was performed. FINDINGS: Small loculated left pleural effusion. [facility] Mirta Hardin PA-C - 10/06/2024 Patient Name: [...] Electronically Signed Date/Time: 10/06/2024 3:55 PM EDT [facility] Interpretation and review of laboratory results Abnormal [facility] Performed by: [facility] [employer] [facility], [address] [place], [place] [id number] CLIA ID: [id number] [facility] Radiology Study observation (narrative) [facility] Interpretation and review of laboratory results Abnormal [facility] Performed by: [facility] [employer] [facility], [address] [place] [id number] CLIA ID: [id number] [facility] No Panel InformationOrdered By: Mirta Hardin on 10-06-2024 [facility] [employer] Work Phone: Nursing Noteon 10-06-2024 Nursing Note [...] given via telephone to Fab Lawson RN. [facility] Progress Noteon 10-06-2024 Progress Note Patient chart is reviewed. Currently rounding. Full note to follow. [facility] Progress Note Speech-Language Pathology SPEECH LANGUAGE PATHOLOGY [facility] Modified Barium Swallow Study Patient Name: Karina Fernando Evaluation Date: 10/06/2024 Date of : 1950 Admission Date: 10/05/2024 8:10 PM Age: 73 y.o. Room[facility]Bed: [facility] A IMPRESSION: The patient presents with mild [...] contrast enters the airway. 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 Please reconsult should [...] and other work up. She presented to [place] ED - with worsening left shoulder, back [...] and was sent in for management to [facility]. She has a history of hiatal [...] Unable to obtain labs and imaging from [place] - Was told she has a complete [...] laryngeal pene (more content not included)... Normal [facility] SHS RF videography Hypopharynx a nd Esophagus Views for swallowing function W speech and W barium contrast Luis Manuel 10-06-2024 No convincing laryngeal penetration or airway aspiration. Please refer to the speech pathologist's report for additional comments and recommendation Report Dictated on Electronically Signed By: Edgardo Lorenz MD Electronically Signed Date/Time: 10/06/2024 9:30 AM EDT [facility] Patient Name: KARINA FERNANDO : 1950 [id number] Exam Date/Time: 10/06/2024 08:57 Procedure: FL MODIFIED [...] no convincing laryngeal penetration or airway aspiration. [facility] Edgardo Lorenz MD - 10/06/2024 Patient Name: [...] Electronically Signed Date/Time: 10/06/2024 9:30 AM EDT [facility] Radiology Study observation (narrative) [facility] alth RF videography Hypopharynx a nd Esophagus Views for swallowing function W speech and W barium contrast POOrdered By: Edgardo Lorenz on 10-06-2024 [facility] [employer] Work Phone: US GUIDED THORACENTESISon US GUIDED [...] Electronically Signed Date/Time: 10/06/2024 3:55 PM EDT [facility] XR CHEST 2 VIEWSon 5 XR CHEST 2 VIEWS Patient Name: KARINA FERNANDO : 1950 [facility]#: [id number] Exam Date/Time: 10/06/2024 08:54 Procedure: XR CHEST [...] Electronically Signed Date/Time: 10/06/2024 10:43 AM EDT [facility] XR Chest 2 Viewson 5 FINDINGS/IMPRESSION: Limitations: Patient positioning/rotation Lines, tubes, and [...] Electronically Signed Date/Time: 10/06/2024 10:43 AM EDT [facility] Patient Name: KARINA FERNANDO : 1950 Exam Date/Time: 10/06/2024 08:54 Procedure: XR CHEST 2 VIEWS Ordering Provider: TAM CANDICE Reason For Exam: Pleural effusion CHEST X-RAY PA/LATERAL CLINICAL INDICATION: Pleural effusion. Patient with known left perihilar mass. TECHNIQUE: Frontal and lateral plain films of the chest were obtained. COMPARISON: CTA chest 10/05/2024 outside facility [facility] Dedrick Haq MD - 10/06/2024 Patient [...] MD Electronically Signed Date/Time: 10/06/2024 10:43 AM T [facility] Radiology Study observation (narrative) [facility] XR Chest 2 ViewsOrdered By: Dedrick Haq on 10-06-2024 [employer] Work Phone: [phone] [phone] to find out Formulary alternative. Normal [facility] 12 Lead EKGon 10-05-2024 12 Lead EKG Normal [facility] 36on 10-05-2024 36 Genaro explains her and her Mother are at [place] ER. Told by the Dr her Mother isn't leaving anytime soon. Her Mother had a CXR and her L lung was completely white. They are now waiting on CT results. Her Mother will eventually be transferred over to [facility] when a bed opens. Explains Her Mother wants back on Symbicort. Normal [facility] 36 Patient is active with Donald PENDLETON and MOIRA for EBUS/ENB 51250/46183 per code check Normal [facility] 36 Diaz notified. Said She is going to take her Mom to the ER here shortly.Needs to discuss with her Mother what to do with the Symbicort and will let us know. [address] [address] Instructions EBUS Endobronchial Ultrasound Procedure Date: October 09, 2024 Time: 1:30 PM Arrival Time: 12:00 PM Physician: Dr. Mejia Location: [facility], Endoscopy Department, [address] [place] [address] Please arrive at the hospital registration desk 1.5 hours prior to scheduled start of procedure. Make sure you have a known responsible adult to transport you home from the hospital as you will not be permitted to drive. Your procedure will be cancelled if you do not have someone to take you home. You can only use a taxi/bus/Uber/medica l transporter radiology if you have a known responsible adult to go with you. You may use [employer]. Each patient will receive one validation ticket for [employer]. Do not drink alcohol before [...] at 11:[address] Johnson at [address] [place], [address] to discuss results. Things to look for [...] If you have any questions, please call: [phone] RN Clinical Coordinator [facility] Pulmonary Medicine [address] [place] [address], [address] [place], [place] [id number] Procedure placed on physician's outlook calendar? yes [...] instructed t (more content not included)... Normal [facility] 36 Chief complaint/symptom: Pt's Daughter, Diaz explains [...] to dial 911 prior to advisement. Normal [facility] Absolute lymphocyte countOrd ered By: Marty Woods on 10-05-2024 Lymphocytes Auto (Unsp spec) [#/Vol] 1.10 10*3/uL 0.83-4.51 [facility] Absolute neutrophil countOrd ered By: Marty Woods on 10-05-2024 Neutrophils (Bld) [#/Vol] 3.0 10*3/uL 2.0-7.7 [facility] Activated partial thrombopla stin time (aPTT) in platelet poor plasma by coagulation aOrdered By: Marty Woods on 10-05-2024 aPTT Coag (PPP) [Time] 22.2 s Low 24.1-36.2 [facility] Anion gap in Serum or Plasma Ordered By: Marty Woods on 10-05-2024 Anion gap [Moles/Vol] 14 mmol/L 5-15 [facility] Automated lymphocyte count a s percentage of total leukocytesOrdered By: Marty Woods on 10-05-2024 Lymphocytes/100 WBC Auto (Unsp spec) 23.3 % - [facility] BUN/creatinine ratioOrdered By: Marty Woods on 10-05-2024 Urea nitrogen/Creatinine [Mass ratio] 10.0 mg/mg 10-20 [facility] Basophil percentageOrdered B y: Marty Woods on 10-05-2024 Basophils/100 WBC (Bld) 0.4 % 0-1 [facility] Bilirubin, totalOrdered By: Marty Woods on 10-05-2024 Bilirubin [Mass/Vol] 0.17 mg/dL 0.00-1.30 [facility] Blood cultureOrdered By: Oj Woods on 10-05-2024 Bacteria identified Cx Nom (Bld) No growth in 5 days. [facility] Bacteria identified Cx Nom (Bld) No growth in 5 days. [facility] CBC W/Diff, Automatedon 09-17 Absolute Lymph 1.10 X10 3/uL Normal 0.83-4.51 [facility] Comment on above: Performed By: #### L 503.6005, L500.4050, L300.3900, L100.0100, L300.4310, M200.1000 ####[facility] [address] [place], [address] Absolute Neut 3.0 X10 3/uL Normal 2.0-7.7 [facility] Comment on above: Performed By: #### L 503.6005, L500.4050, L300.3900, L100.0100, L300.4310, M200.1000 ####[facility] [address] [place], [address] Basophils/100 WBC (Bld) 0.4 % Normal 0-1 [facility] Comment on above: Performed By: #### L 503.6005, L500.4050, L300.3900, L100.0100, L300.4310, M200.1000 ####[facility] [address] [place], [address] Eosinophils/100 WBC (Bld) 0.0 % Normal 0-5 [facility] Comment on above: Performed By: #### L 503.6005, L500.4050, L300.3900, L100.0100, L300.4310, M200.1000 ####[facility] [address] [place], [address] Erythrocyte distribution width (RBC) [Ratio] 19.0 % High 11.6-14.6 [facility] Comment on above: Performed By: #### L 503.6005, L500.4050, L300.3900, L100.0100, L300.4310, M200.1000 ####[facility] [address] [place], [address] Hematocrit (Bld) [Volume fraction] 39.2 % Normal 37-47 [facility] Comment on above: Performed By: #### L 503.6005, L500.4050, L300.3900, L100.0100, L300.4310, M200.1000 ####[facility] [address] [place], [address] Hemoglobin (Bld) [Mass/Vol] 12.3 g/dL Normal 12.0-15.0 [facility] Comment on above: Performed By: #### L 503.6005, L500.4050, L300.3900, L100.0100, L300.4310, M200.1000 ####[facility] [address] [place], [address] IG% 0.200 Normal 0.0-0.9 [facility] Comment on above: Result Comment: IG% - Immature Granulocytes (promyelocytes, myelocytes andmetamyelocytes) > 1% indicates that a LEFT SHIFT is Present. Performed By: #### L 503.6005, L500.4050, L300.3900, L100.0100, L300.4310, M200.1000 ####[facility] [address] [place], [address] Lymphocytes/100 WBC (Bld) 23.3 % Normal 19-41 [facility] Comment on above: Performed By: #### L 503.6005, L500.4050, L300.3900, L100.0100, L300.4310, M200.1000 ####[facility] [address] [place], [address] MCH (RBC) [Entitic mass] 25.6 pg Low 27.0-32.0 [facility] Comment on above: Performed By: #### L 503.6005, L500.4050, L300.3900, L100.0100, L300.4310, M200.1000 ####[facility] [address] [place], [address] MCHC (RBC) [Mass/Vol] 31.4 g/dL Low 32-36 [facility] Comment on above: Performed By: #### L 503.6005, L500.4050, L300.3900, L100.0100, L300.4310, M200.1000 ####[facility] [address] [place], [address] MCV (RBC) [Entitic vol] 81.7 fL Normal 81-99 [facility] Comment on above: Performed By: #### L 503.6005, L500.4050, L300.3900, L100.0100, L300.4310, M200.1000 ####[facility] [address] [place], [address] Monocytes/100 WBC (Bld) 12.9 % High 0-10 [facility] Comment on above: Performed By: #### L 503.6005, L500.4050, L300.3900, L100.0100, L300.4310, M200.1000 ####[facility] [address] [place], [address] Neutrophils/100 WBC (Bld) 63.2 % Normal 47-70 [facility] Comment on above: Performed By: #### L 503.6005, L500.4050, L300.3900, L100.0100, L300.4310, M200.1000 ####[facility] [address] [place], [address] Nucleated RBC (Bld) [#/Vol] 0 10*3/uL Normal 0-5 [facility] Comment on above: Performed By: #### L 503.6005, L500.4050, L300.3900, L100.0100, L300.4310, M200.1000 ####[facility] [address] [place], [address] Platelet mean volume (Bld) [Entitic vol] 8.8 fL Normal 6.2-12.0 [facility] Comment on above: Performed By: #### L 503.6005, L500.4050, L300.3900, L100.0100, L300.4310, M200.1000 ####[facility] [address] [place], [address] Platelets (Bld) [#/Vol] 278 10*3/uL Normal 150-450 [facility] Comment on above: Performed By: #### L 503.6005, L500.4050, L300.3900, L100.0100, L300.4310, M200.1000 ####[facility] [address] [place], [address] RBC (Bld) [#/Vol] 4.80 10*6/uL Normal 4.2-5.4 [facility] Comment on above: Performed By: #### L 503.6005, L500.4050, L300.3900, L100.0100, L300.4310, M200.1000 ####[facility] [address] [place], [address] RDW SD 56.2 fl High 35.1-43.9 [facility] Comment on above: Performed By: #### L 503.6005, L500.4050, L300.3900, L100.0100, L300.4310, M200.1000 ####[facility] [address] [place], [address] WBC (Bld) [#/Vol] 4.7 10*3/uL Normal 4.4-11.0 [facility] Comment on above: Performed By: #### L 503.6005, L500.4050, L300.3900, L100.0100, L300.4310, M200.1000 ####[facility] [address] [place], [address] CTA Chest W/ Contraston CTA Chest W/WO Contrast Normal [facility] Carbon dioxide, total [Moles /volume] in Central venous bloodOrdered By: Marty Woods on 10-05-2024 CO2 [Moles/Vol] 25.1 mmol/L 21.0-32.0 [facility] Chest PA and Lateralon 10-05 Chest PA and Lateral Normal [facility] Chloride assayOrdered By: Lopez Woods on 10-05-2024 Chloride [Moles/Vol] 102 mmol/L 98-108 [facility] Comprehensive Metabolic Prof ilon 10-05-2024 Albumin [Mass/Vol] 4.2 g/dL Normal 3.4-4.8 [facility] Comment on above: Performed By: #### L 503.6005, L500.4050, L300.3900, L100.0100, L300.4310, M200.1000 ####[facility] [address] [place], [address] Albumin/Globulin [Mass ratio] 1.4 {ratio} Normal 0.9-2.4 [facility] Comment on above: Performed By: #### L 503.6005, L500.4050, L300.3900, L100.0100, L300.4310, M200.1000 ####[facility] [address] [place], [address] ALK PHOS 57 U/L Normal 35-104 [facility] Comment on above: Performed By: #### L 503.6005, L500.4050, L300.3900, L100.0100, L300.4310, M200.1000 ####[facility] [address] [place], [address] ALT [Catalytic activity/Vol] 11 U/L Normal <=34 [facility] Comment on above: Performed By: #### L 503.6005, L500.4050, L300.3900, L100.0100, L300.4310, M200.1000 ####[facility] [address] [place], [address] AST [Catalytic activity/Vol] 20 U/L Normal <=31 [facility] Comment on above: Performed By: #### L 503.6005, L500.4050, L300.3900, L100.0100, L300.4310, M200.1000 ####[facility] [address] [place], [address] Bilirubin [Mass/Vol] 0.17 mg/dL Normal 0.00-1.30 [facility] Comment on above: Performed By: #### L 503.6005, L500.4050, L300.3900, L100.0100, L300.4310, M200.1000 ####[facility] [address] [place], [address] BUN/CRE 10.0 RATIO Normal 10-20 [facility] Comment on above: Performed By: #### L 503.6005, L500.4050, L300.3900, L100.0100, L300.4310, M200.1000 ####[facility] [address] [place], [address] Calcium [Mass/Vol] 9.6 mg/dL Normal 7.6-11.0 [facility] Comment on above: Performed By: #### L 503.6005, L500.4050, L300.3900, L100.0100, L300.4310, M200.1000 ####[facility] [address] [place], [address] Chloride [Moles/Vol] 102 mmol/L Normal 98-108 [facility] Comment on above: Performed By: #### L 503.6005, L500.4050, L300.3900, L100.0100, L300.4310, M200.1000 ####[facility] [address] [place], [place], [id number] CO2 [Moles/Vol] 25.1 mmol/L Normal 21.0-32.0 [facility] Comment on above: Performed By: #### L 503.6005, L500.4050, L300.3900, L100.0100, L300.4310, M200.1000 ####[facility] [address] [place], [place], [phone] Creatinine [Mass/Vol] 0.99 mg/dL Normal 0.70-1.20 [facility] Comment on above: Performed By: #### L 503.6005, L500.4050, L300.3900, L100.0100, L300.4310, M200.1000 ####[facility] [address] [place], [place], [phone]) ECRCL 49.48 ml/min Low 50-250 [facility] Comment on above: Performed By: #### L 503.6005, L500.4050, L300.3900, L100.0100, L300.4310, M200.1000 ####[facility] [address] [place], [place], [id number] GAP 14 Normal 5-15 [facility] Comment on above: Performed By: #### L 503.6005, L500.4050, L300.3900, L100.0100, L300.4310, M200.1000 ####[facility] [address] [place], [place], [address] GFR/1.73 sq M.predicted among non-blacks MDRD (S/P/Bld) [Vol rate/Area] 61 mL/min/{1.73_m2} Normal >60 [facility] Comment on above: Result Comment: mL/m in/1.73m2 CKD-EPI Creatinine Equation (2020) Performed By: #### L 503.6005, L500.4050, L300.3900, L100.0100, L300.4310, M200.1000 ####[facility] [address] [place], [address] Globulin (S) [Mass/Vol] 3.0 g/dL Normal 2.2-4.2 [facility] Comment on above: Performed By: #### L 503.6005, L500.4050, L300.3900, L100.0100, L300.4310, M200.1000 ####[facility] [address] [place], [address] Glucose [Mass/Vol] 107 mg/dL High 70-99 [facility] Comment on above: Performed By: #### L 503.6005, L500.4050, L300.3900, L100.0100, L300.4310, M200.1000 ####[facility] [address] [place], [address] Potassium [Moles/Vol] 3.3 mmol/L Normal 3.3-5.1 [facility] Comment on above: Performed By: #### L 503.6005, L500.4050, L300.3900, L100.0100, L300.4310, M200.1000 ####[facility] [address] [place], [address] Sodium [Moles/Vol] 141 mmol/L Normal 133-145 [facility] Comment on above: Performed By: #### L 503.6005, L500.4050, L300.3900, L100.0100, L300.4310, M200.1000 ####[facility] [address] [place], [address] T PROT 7.2 g/dL Normal 5.9-8.4 [facility] Comment on above: Performed By: #### L 503.6005, L500.4050, L300.3900, L100.0100, L300.4310, M200.1000 ####[facility] [address] [place], [place], [address] Urea nitrogen [Mass/Vol] 10 mg/dL Normal - [facility] Comment on above: Performed By: #### L 503.6005, L500.4050, L300.3900, L100.0100, L300.4310, M200.1000 ####[facility] [address] [place], [place], [id number] Emergency Department Summary on 10-05-2024 Emergency Department Summary Normal [facility] Eosinophil percentageOrdered By: Marty Woods on 10-05-2024 Eosinophils/100 WBC (Bld) 0.0 % 0-5 [facility] Erythrocyte distribution wid th ratioOrdered By: Marty Woods on 10-05-2024 Erythrocyte distribution width (RBC) [Ratio] 19.0 % High 11.6-14.6 [facility] Erythrocyte distribution wid th standard deviationOrdered By: Marty Woods on 10-05-2024 Erythrocyte distribution width (RBC) [Entitic vol] 56.2 fL High 35.1-43.9 [facility] Erythrocyte distribution width (RBC) [Ratio] 56.2 fl High 35.1-43.9 [facility] Estimation of creatinine nikki aranceOrdered By: Marty Woods on 10-05-2024 Estimated Creatinine Clearance Calc 49.48 ml/min Low 50-250 [facility] GFR/1.73 sq M.predicted ty g non-blacks MDRD (S/P/Bld) [Vol rate/Area]Ordered By: Marty Woods on 10-05-2024 Estimated GFR (MDRD) Non-Af Amer 61 >60 [facility] Comment on above: mL/min/1.73m2 CKD-EP I Creatinine Equation (2020) Glomerular filtration rate ( GFR) estimation/1.73 sq m using serum, plasma, or whole bOrdered By: Marty Woods on 10-05-2024 GFR/1.73 sq M.predicted among non-blacks MDRD (S/P/Bld) [Vol rate/Area] 61 mL/min/{1.73_m2} >60 [facility] Comment on above: mL/min/1.73m2 CKD-EP I Creatinine Equation (2020) Hematocrit Auto (Bld) [Volum e fraction]Ordered By: Marty Woods on 10-05-2024 Hematocrit (Bld) [Volume fraction] 39.2 % 37-47 [facility] Hemoglobin measurementOrdere d By: Marty Woods on 10-05-2024 Hemoglobin (Bld) [Mass/Vol] 12.3 g/dL 12.0-15.0 [facility] Immature granulocytes/100 WB C Auto (Bld)Ordered By: Marty Woods on 10-05-2024 Immature granulocytes/100 WBC (Bld) 0.200 % 0.0-0.9 [facility] Comment on above: IG% - Immature Granu locytes (promyelocytes, myelocytes and metamyelocytes) > 1% indicates that a LEFT SHIFT is Present. Influenza virus A and B and SARS-CoV-2 (COVID-19) and Respiratory syncytial virus RNAOrdered By: Marty Woods on 10-05-2024 SARS-CoV-2 (COVID-19) RNA MIGUE+probe Ql (Unsp spec) [facility] International normalized rat io (INR) calculationOrdered By: Marty Woods on 10-05-2024 INR Coag (Bld) [Relative time] 1.0 {INR} [facility] L499.0042on 10-05-2024 Trop T High Sen 16 ng/L High <=14 [facility] Comment on above: Performed By: #### L 499.0042 ####[facility] [address] [place], [place], [address] L499.0043on 10-05-2024 Trop T High Sen Normal <=14 [facility] Comment on above: Result Comment: PT D ISCHARGED Performed By: #### L 499.0043 ####[facility] [address] [place], [place], [address] L501.4021on 10-05-2024 Trop T High Sen 17 ng/L High <=14 [facility] Comment on above: Performed By: #### L 501.4021 ####[facility] [address] [place], [place], [id number] L503.7505on 10-05-2024 Natriuretic peptide B (Bld) [Mass/Vol] 166 pg/mL Normal <=900 [facility] Comment on above: Result Comment: Hear t Failure Unlikely: < 300 pg/mLHeart Failure Likely< 50 Years: > 450 pg/mL50-75 Years: > 900 pg/mL>75 Years: > 1800 pg/mL Performed By: #### L 503.7505 ####[facility] [address] [facility] [place], [address] Laboratory - Chemistry and C hemistry - challengeOrdered By: Marty Woods on 10-05-2024 Natriuretic peptide B (Bld) [Mass/Vol] 166 pg/mL <900 [facility] Comment on above: Heart Failure Unlike ly: < 300 pg/mLHeart Failure Likely< 50 Years: > 450 pg/mL50-75 Years: > 900 pg/mL>75 Years: > 1800 pg/mL AST [Catalytic activity/Vol] 20 U/L <32 [facility] Lactic Acidon 10-05-2024 Lactate [Moles/Vol] 1.4 mmol/L Normal 0.0-2.0 [facility] Comment on above: Order Comment: Y Performed By: #### L 503.6005, L500.4050, L300.3900, L100.0100, L300.4310, M200.1000 ####[facility] [address] [facility] [place], [place], [id number] Lactic acid measurementOrder ed By: Marty Woods on 10-05-2024 Lactate [Moles/Vol] 1.4 mmol/L 0.0-2.0 [facility] Lymphocytes Auto (Unsp spec) [#/Vol]Ordered By: Marty Woods on 10-05-2024 Lymphocytes (Bld) [#/Vol] 1.10 10*3/uL 0.83-4.51 [facility] Lymphocytes/100 WBC Auto (Un sp spec)Ordered By: Marty Woods on 10-05-2024 Lymphocytes/100 WBC (Bld) 23.3 % 19-41 [facility] M100.678on 10-05-2024 M100.678 Pending SARS-CoV-2 (COVID 19) Negative INFLUENZA A Negative INFLUENZA B Negative RSV PCR Negative Normal [facility] Comment on above: Performed By: #### M 100.678, L400.0001 ####[facility] [address] [place], [address] MCV (mean corpuscular volume ) determinationOrdered By: Marty Woods on 10-05-2024 MCV (RBC) [Entitic vol] 81.7 fL 81-99 [facility] Mean corpuscular hemoglobin (MCH) determinationOrdered By: Marty Woods on 10-05-2024 MCH (RBC) [Entitic mass] 25.6 pg Low 27.0-32.0 [facility] Mean corpuscular hemoglobin concentration (MCHC) determinationOrdered By: Marty Woods on 10-05-2024 MCHC (RBC) [Mass/Vol] 31.4 g/dL Low 32-36 [facility] Mean platelet volume determi nationOrdered By: Marty Woods on 10-05-2024 Platelet mean volume (Bld) [Entitic vol] 8.8 fL 6.2-12.0 [facility] Monocyte percentageOrdered B y: Marty Woods on 10-05-2024 Monocytes/100 WBC (Bld) 12.9 % High 0-10 [facility] Neutrophil percentageOrdered By: Marty Woods on 10-05-2024 Neutrophils/100 WBC (Bld) 63.2 % 47-70 [facility] No Panel InformationOrdered By: Marty Woods on 10-05-2024 Troponin T High Sensitivity 17 ng/L High <14 [facility] Comment on above: Delta: 19 on 5-1704 Nucleated red blood cell per centageOrdered By: Marty Woods on 10-05-2024 Nucleated RBC/100 WBC (Bld) [Ratio] 0 % 0-5 [facility] Partial Thromboplast Timeon 10-05-2024 aPTT Coag (Bld) [Time] 22.2 s Low 24.1-36.2 [facility] Comment on above: Performed By: #### L 503.6005, L500.4050, L300.3900, L100.0100, L300.4310, M200.1000 ####[facility] [address] [place], [address] Platelet countOrdered By: Lopez Woods on 10-05-2024 Platelets (Bld) [#/Vol] 278 10*3/uL 150-450 [facility] Potassium (Unsp spec) [Mass/ Vol]Ordered By: Marty Woods on 10-05-2024 Potassium [Moles/Vol] 3.3 mmol/L 3.3-5.1 [facility] Potassium measurement (mass/ volume)Ordered By: Marty Woods on 10-05-2024 Potassium (Unsp spec) [Mass/Vol] 3.3 mmol/L 3.3-5.1 [facility] Prothrombin Time w/INRon INR Coag (PPP) [Relative time] 1.0 {INR} Normal [facility] Comment on above: Performed By: #### L 503.6005, L500.4050, L300.3900, L100.0100, L300.4310, M200.1000 ####[facility] [address] [place], [address] PT Coag (PPP) [Time] 12.9 s Normal 11.7-14.9 [facility] Comment on above: Performed By: #### L 503.6005, L500.4050, L300.3900, L100.0100, L300.4310, M200.1000 ####[facility] [address] [place], [address] Prothrombin timeOrdered By: Marty Woods on 10-05-2024 PT Coag (PPP) [Time] 12.9 s 11.7-14.9 [facility] RBC Auto (Bld) [#/Vol]Ordere d By: Marty Woods on 10-05-2024 RBC (Bld) [#/Vol] 4.80 10*6/uL 4.2-5.4 [facility] Serum creatinine measurement (mass/volume)Ordered By: Marty Woods on 10-05-2024 Creatinine [Mass/Vol] 0.99 mg/dL 0.70-1.20 [facility] Serum globulin measurementOr dered By: Marty Woods on 10-05-2024 Globulin (S) [Mass/Vol] 3.0 g/dL 2.2-4.2 [facility] Serum glucose measurement (m ass/volume)Ordered By: Marty Woods on 10-05-2024 Glucose [Mass/Vol] 107 mg/dL High 70-99 [facility] Serum or plasma alanine vicente otransferase (ALT) measurementOrdered By: Marty Woods on 10-05-2024 ALT [Catalytic activity/Vol] 11 U/L <35 [facility] Serum or plasma albumin usman urement (mass/volume)Ordered By: Marty Woods on 10-05-2024 Albumin [Mass/Vol] 4.2 g/dL 3.4-4.8 [facility] Serum or plasma albumin/glob ulin mass ratioOrdered By: Marty Woods on 10-05-2024 Albumin/Globulin [Mass ratio] 1.4 {ratio} 0.9-2.4 [facility] Serum or plasma alkaline marcela sphatase measurementOrdered By: Marty Woods on 10-05-2024 ALP [Catalytic activity/Vol] 57 U/L 35-104 [facility] Serum or plasma calcium usman urement (mass/volume)Ordered By: Marty Woods on 10-05-2024 Calcium [Mass/Vol] 9.6 mg/dL 7.6-11.0 [facility] Serum or plasma urea nitroge n measurement (mass/volume)Ordered By: Marty Woods on 10-05-2024 Urea nitrogen [Mass/Vol] 10 mg/dL 4-19 [facility] Sodium levelOrdered By: Deejay Woods on 10-05-2024 Sodium [Moles/Vol] 141 mmol/L 133-145 [facility] Total proteinOrdered By: Oj Woods on 10-05-2024 Protein [Mass/Vol] 7.2 g/dL 5.9-8.4 [facility] Troponin T.cardiac High sens itivity method [Mass/Vol]Ordered By: Marty Woods on 10-05-2024 Troponin T High Sensitivity 2 Hour 16 ng/L High <14 [facility] Troponin T.cardiac [Mass/vol ume] in Serum or Plasma by High sensitivity methodOrdered By: Marty Woods on 10-05-2024 Troponin T.cardiac High sensitivity method [Mass/Vol] 16 ng/L High <14 [facility] Urinalysis, Completeon 10-05 BACTERIA Normal None Seen [facility] Comment on above: Order Comment: CLEAN CATCH Result Comment: Canc elled via OM: MD Ordered Performed By: #### M 100.678, L400.0001 ####[facility] [address] [place], [address] BILIRUBIN URINE Normal Negative [facility] Comment on above: Order Comment: CLEAN CATCH Result Comment: Canc elled via OM: MD Ordered Performed By: #### M 100.678, L400.0001 ####[facility] [address] [place], [address] Clarity (U) Normal Clear [facility] Comment on above: Order Comment: CLEAN CATCH Result Comment: Canc elled via OM: MD Ordered Performed By: #### M 100.678, L400.0001 ####[facility] [address] [place], [address] Color (U) Normal Yellow [facility] Comment on above: Order Comment: CLEAN CATCH Result Comment: Canc elled via OM: MD Ordered Performed By: #### M 100.678, L400.0001 ####[facility] [address] [place], [address] EPI,SQUAMOUS Normal 5-10 [facility] Comment on above: Order Comment: CLEAN CATCH Result Comment: Canc elled via OM: MD Ordered Performed By: #### M 100.678, L400.0001 ####[facility] [address] [place], [address] GLUCOSE, UR Normal Normal [facility] Comment on above: Order Comment: CLEAN CATCH Result Comment: Canc elled via OM: MD Ordered Performed By: #### M 100.678, L400.0001 ####[facility] [address] [place], [address] KETONE UR Normal Negative [facility] Comment on above: Order Comment: CLEAN CATCH Result Comment: Canc elled via OM: MD Ordered Performed By: #### M 100.678, L400.0001 ####[facility] [address] [place], [address] LEUK ESTERASE Normal Negative [facility] Comment on above: Order Comment: CLEAN CATCH Result Comment: Canc elled via OM: MD Ordered Performed By: #### M 100.678, L400.0001 ####[facility] [address] [place], [address] Mucus Ql (Urine sed) Normal [facility] Comment on above: Order Comment: CLEAN CATCH Result Comment: Canc elled via OM: MD Ordered Performed By: #### M 100.678, L400.0001 ####[facility] [address] [place], [address] Nitrite Ql (U) Normal Negative [facility] Comment on above: Order Comment: CLEAN CATCH Result Comment: Canc elled via OM: MD Ordered Performed By: #### M 100.678, L400.0001 ####[facility] [address] [place], [address] OCCULT BLOOD-UR Normal Negative [facility] Comment on above: Order Comment: CLEAN CATCH Result Comment: Canc elled via OM: MD Ordered Performed By: #### M 100.678, L400.0001 ####[facility] [address] [place], [address] pH UR Normal 5.0 - 8.0 [facility] Comment on above: Order Comment: CLEAN CATCH Result Comment: Canc elled via OM: MD Ordered Performed By: #### M 100.678, L400.0001 ####[facility] [address] [place], [address] PROT DIPSTX Normal Negative [facility] Comment on above: Order Comment: CLEAN CATCH Result Comment: Canc elled via OM: MD Ordered Performed By: #### M 100.678, L400.0001 ####[facility] [address] [place], [address] RBC Normal 0-5 [facility] Comment on above: Order Comment: CLEAN CATCH Result Comment: Canc elled via OM: MD Ordered Performed By: #### M 100.678, L400.0001 ####[facility] [address] [place], [address] SP.GR. DIPSTX Normal 1.002-1.030 [facility] Comment on above: Order Comment: CLEAN CATCH Result Comment: Canc elled via OM: MD Ordered Performed By: #### M 100.678, L400.0001 ####[facility] [address] [place], [address] UR Preservative Normal [facility] Comment on above: Order Comment: CLEAN CATCH Result Comment: Canc elled via OM: MD Ordered Performed By: #### M 100.678, L400.0001 ####[facility] [address] [place], [address] UROBILI Normal Normal [facility] Comment on above: Order Comment: CLEAN CATCH Result Comment: Canc elled via OM: MD Ordered Performed By: #### M 100.678, L400.0001 ####[facility] [address] [place], [place], [address] WBC Normal 0-5 [facility] Comment on above: Order Comment: CLEAN CATCH Result Comment: Nancy elllenora via OM: MD Ordered Performed By: #### M 100.678, L400.0001 ####[facility] [address] [place], [address] White blood cell (WBC) count Ordered By: Marty Woods on 10-05-2024 WBC (Bld) [#/Vol] 4.7 10*3/uL 4.4-11.0 [facility] aPTT Coag (PPP) [Time]Ordere d By: Marty Woods on 10-05-2024 aPTT Coag (Bld) [Time] 22.2 s Low 24.1-36.2 [facility] 36on 10-03-2024 36 Navigator contacted the office of Rhiannon Georges CNP at [place] [facility]. Requested pulmonary function test and will scanned to media tab when available. Normal [facility] [address] Johnson during [facility] appt. Patient has a pericardial effusion and cardiac lesion. She has been lightheaded for a few days and expedited cardiology eval is recommended. Spoke with cardiology office at [phone] and arranged for appt with Dr. Luis at [address] [place] [address] Johnson will send patient right over. Normal [facility] 36 Navigator received request from cardiothoracic surgery office to assist with expediting lung nodule clinic evaluation. Patient lives far away and [facility] is hoping patient can be seen while on campus. Patient was seen by Dr. Silvio Fortune this morning and needs pulmonary evaluation prior to surgical consideration. Verified prior images and reports from [facility] are available for review in PACS. Scanned imaging reports including CT chest imaging, thyroid imaging and provider office notes from medical oncology and pulmonary in [place] to the media tab. Patient will see Dr. Lacho Kamara now to further evaluate left hilar mass and adenopathy first noted on CT imaging 09/13/2024 in [place]. Normal [facility] 37on 10-03-2024 37 YOUR APPOINTMENT TODAY WAS WITH THE [facility] LUNG NODULE [facility], COPD CLINIC, PULMONARY AND SLEEP MEDICINE OFFICE. PLEASE CALL OUR OFFICE AT [phone] IF YOU HAVE NOT RECEIVED YOUR TEST [...] to make improvements. COVID-19 VACCINATION INFORMATION: PH. [phone] [employer]ORG/CORONAVIR US/VACCINE [facility] Central Scheduling [phone] [facility] Sleep Scheduling [phone] [facility] Office Visiton 10-03-2024 Follow-up visit [id number] Karina Fernando 1950 [facility] Provider Department Center 10/03/2024 [id number] BRANDON [facility] ACH JERAMIE SHMGCV [address] Family History Problem Relation Age of Onset Cancer Mother Cancer Father No Known Problems Sister No Known Problems Brother Heart disease Brother Family Status - Relation Status Age at Mother Father Sister Alive Brother Alive Brother Alive Level of Service:00642 [place] OFFICE/OUTPATIENT NEW MODERATE MDM 45 MINUTES Reason for Visit and Comments: New Patient [542] Shortness of Breath [897987] - >1yr Normal [facility] Follow-up visit [id number] Karina Fernando 1950 Provider Department Center 10/03/2024 [id number]-[id number] ASS, C*SHMG ACH PUL None Family History Problem Relation Age of Onset Cancer Mother Cancer Father No Known Problems Sister No Known Problems Brother Heart disease Brother Family Status - Relation Status Age at Mother Father Sister Alive Brother Alive Brother Alive Level of Service:07750 [place] OFFICE/OUTPATIENT NEW MODERATE MDM 45 MINUTES Reason for Visit and Comments: New Patient [542] Normal [facility] Follow-up visit [id number] Karina Fernando 1950 [facility] Provider Department Center 10/03/2024 [id number] [facility] A[facility] None Family History Problem Relation Age of Onset Cancer Mother Cancer Father No Known Problems Sister No Known Problems Brother Heart disease Brother Family Status - Relation Status Age at Mother Father Sister Alive Brother Alive Brother Alive Level of Service:18845 [place] OFFICE/OUTPATIENT NEW HIGH MDM 60 MINUTES Reason for Visit and Comments: New Patient [542] Normal [facility] Progress Noteon 10-03-2024 Progress Note [facility] Cardiology Note DATE of SERVICE:10/03/24 TIME of SERVICE: 2:41 PM Chief Complaint: Chief Complaint Patient presents with New Patient Shortness of Breath >1yr History of PresentIllness: Karina Fernando is a 73 y.o. female with a long history of tobacco use who was evaluated for shortness of breath. The workup in [facility] revealed a very large (6.2 x 4.7 cm) hilar mass. She was seen by pulmonary and scheduled for a biopsy also seen by Dr. Fortune. In the meantime however an echocardiogram that was done at [facility] reported a small pericardial effusion and a mass on the patient's right intra-atrial septum. Her biopsy was canceled and she was referred here to cardiology for an evaluation. I reviewed the echocardiogram that was done at [facility], there is a very small hemodynamically insignificant [...] capsule by mouth daily., Disp: , Rfl: [place]-3 Fatty Acids (OMEGA 3 500 PO), Take [...] is 28.8 (more content not included)... Normal [facility] Progress Note [facility], Pulmonary Critical Care Medicine [address] [place] [id number] Pulmonary Patient Visit - New 10/03/2024 Referring Physician: TU HECTOR DO Reason for Referral: SOB History of Present Illness Karina Fernando is a 73 y.o. F with history of recurrent sinus infections, COPD on symbicort/albuterol, HTN who presented for a left hilar mass. Stated that in May she began having shortness of breath which worsened until she went to the ER in [place] in August. Found on CT with a left hilar mass, left upper lobe pleural-based mass, and moderate pericardial effusion. Evaluated by oncology and recommended for PET/CT, MRI brain, and biopsy. Established with pulmonology and had been planned for EBUS in [place] but canceled after TTE demonstrated a right [...] acetaminophen (Tylenol Extra Strength) 500 MG tablet [id number] Yes Take by mouth. Historical ProviderMD Not Taking Active albuterol (Ventolin HFA) 108 (90 Base) MCG/ACT inhaler [id number] Inhale 2 puffs every 4 hours as needed for wheezing or shortness of breath. Rachel Johnson DO Active busPIRone (Buspar) 10 MG tablet [id number] Yes Take 10 mg by mouth 3 times daily as needed. Historical ProviderMD Taking Active cetirizine (ZyrTEC) 10 MG tablet [id number] Yes Take 10 mg by mouth daily. Historical ProviderMD Taking Active cholecalciferol (Vitamin D-3) 25 MCG (1000 UT) capsule [id number] Yes Take 1,000 Units by mouth daily. Historical Provider, Active Fluticasone-Umeclidi n-Vilant (Trelegy Ellipta) 100-62.5-25 MCG/ACT aerosol powder [id number] Inhale 1 Inhalation daily. Rachel Johnson, Active gabapentin (Neurontin) 300 MG capsule [id number] Yes Take 300 mg by mouth 3 times daily. Historical ProviderMD Not Taking Active hydroCHLOROthiazide (HYDRODiuril) 25 MG tablet [id number] Yes Take 25 mg by mouth daily. Historical Provider, Taking Active loratadine (Claritin) 5 MG chewable tablet [id number] Yes Chew 5 mg daily. Historical Provider, Active Melatonin 2.5 MG chewable tablet [id number] Yes Chew Daily as needed. Historical ProviderMD Not Taking Active meloxicam (Mobic) 15 MG tablet [id number] Yes Take by mouth daily. Historical ProviderMD Not Taking Active Multiple Vitamin (multivitamin) capsule [id number] Yes Take 1 capsule by mouth daily. Historical ProviderMD Active [place]-3 Fatty Acids (OMEGA 3 500 PO) [id number] Yes Take by mouth daily. Historical Provider, Taking Active oxyCODONE-acetaminop hen (Percocet) 5-325 MG tablet [id number] Yes Historical Provider, Taking Active simvastatin (Zocor) 20 MG tablet [id number] Yes Take 20 mg by mouth Nightly. Historical ProviderMD Taking Active traZODone (Desyrel) 100 MG tablet [id number] Yes Take 100 mg by mouth Nightly. Historical ProviderMD Taking Active valACYclovir (Valtrex) 500 MG tablet [id number] Yes Take by mouth daily. Historical ProviderMD Not Taking Active Vitamin E 268 MG (400 UNIT) capsule [id number] Yes Take by mouth daily. Historical ProviderMD Taking Active Social History Social History Tobacco Use Smoking status: Former Average packs/day: (more content not included)... Normal [facility] Progress Note [facility] CARDIOV[facility]ORACIC SURGERY [address] [facility] [address] Dept: [phone] Dept Loc: [phone] Visit type: New Reason for Visit: AP [...] effusion. Per note, pt had presented to [place] ED in August 2023 for dyspnea. CTA [...] tablet, Take by mouth., Disp: , Rfl: [place]-3 Fatty Acids (OMEGA 3 500 PO), Take [...] mucus m (more content not included)... Normal [facility] Office Visit Reporton 2024 Office Visit Report Normal [facility] Activated partial thrombopla stin time (aPTT) in platelet poor plasma by coagulation aOrdered By: Rhiannon Georges on 09-22-2024 aPTT Coag (PPP) [Time] 21.2 s Low 24.1-36.2 [facility] International normalized rat io (INR) calculationOrdered By: Rhiannon Georges on 09-22-2024 INR Coag (Bld) [Relative time] 0.9 {INR} [facility] Partial Thromboplast Timeon 09-22-2024 aPTT Coag (Bld) [Time] 21.2 s Low 24.1-36.2 [facility] Comment on above: Performed By: #### L 300.4310, L300.3900 ####[facility] [address] [place], [address] Prothrombin Time w/INRon INR Coag (PPP) [Relative time] 0.9 {INR} Normal [facility] Comment on above: Performed By: #### L 300.4310, L300.3900 ####[facility] [address] [place], [address] PT Coag (PPP) [Time] 12.8 s Normal 11.7-14.9 [facility] Comment on above: Performed By: #### L 300.4310, L300.3900 ####[facility] [address] [place], [address] Prothrombin timeOrdered By: Rhiannon Georges on 09-22-2024 PT Coag (PPP) [Time] 12.8 s 11.7-14.9 [facility] Pulmonary Visit Reporton Pulmonary Visit Report Normal [facility] aPTT Coag (PPP) [Time]Ordere d By: Rhiannon Georges on 09-22-2024 aPTT Coag (Bld) [Time] 21.2 s Low 24.1-36.2 [facility] US THYROIDon 09-19-2024 US THYROID ORIGINAL EXAMINATION: [...] Date: 09/19/2024 1:04:03 PM Ordering Provider: JOSELIN NIETO [facility] Oncology Visit Reporton Oncology Visit Report Normal [facility] XR CHEST 2 VIEWSon XR CHEST [...] Date: 09/14/2024 4:52:34 PM Ordering Provider: JOSELIN Botello [facility] .GFRon 09-13-2024 Estimated Glomerular Filtration Rate 50 ml/min/1.73sqm [facility] Comment on above: Result Comment: Stages of [...] FT4, DIFF, MORPH, CMP, CBC, PBNP #### [place] [address] .Manual Diffon 09-13-2024 Basophil %, Manual 0.0 % Normal 0.0-2.5 [facility] Comment on above: Performed By: #### G FR, TSH, FT4, DIFF, MORPH, CMP, CBC, PBNP #### [place] [address] Basophil, Abs Manual 0.0 10 3/mcL Normal 0.0-0.2 [facility] Comment on above: Performed By: #### G FR, TSH, FT4, DIFF, MORPH, CMP, CBC, PBNP #### [place] [address] Eosinophil %, Manual 0.0 % Normal 0.0-7.0 [facility] Comment on above: Performed By: #### G FR, TSH, FT4, DIFF, MORPH, CMP, CBC, PBNP #### [address] [address] Eosinophil, Abs Manual 0.0 10 3/mcL Normal 0.0-0.7 [facility] Comment on above: Performed By: #### G FR, TSH, FT4, DIFF, MORPH, CMP, CBC, PBNP #### [place] [address] Lymphocyte %, Manual 32.0 % Normal 20.0-40.0 [facility] Comment on above: Performed By: #### G FR, TSH, FT4, DIFF, MORPH, CMP, CBC, PBNP #### [place] [address] Lymphocyte, Abs Manual 1.8 10 3/mcL Normal 0.9-4.3 [facility] Comment on above: Performed By: #### G FR, TSH, FT4, DIFF, MORPH, CMP, CBC, PBNP #### [address] [address] Monocyte %, Manual 16.0 % High 2.0-13.0 [facility] Comment on above: Performed By: #### G FR, TSH, FT4, DIFF, MORPH, CMP, CBC, PBNP #### [address] [address] Monocyte, Abs Manual 0.9 10 3/mcL Normal 0.1-1.4 [facility] Comment on above: Performed By: #### G FR, TSH, FT4, DIFF, MORPH, CMP, CBC, PBNP #### [address] [address] Neutrophil %, Manual 52.0 % Normal 50.0-75.0 [facility] Comment on above: Performed By: #### G FR, TSH, FT4, DIFF, MORPH, CMP, CBC, PBNP #### [address] [address] Neutrophil, Abs Manual 2.9 10 3/mcL Normal 2.3-8.1 [facility] Comment on above: Performed By: #### G FR, TSH, FT4, DIFF, MORPH, CMP, CBC, PBNP #### [address] [address] Nucleated RBC 0.0 /100 WBC Normal [facility] Comment on above: Performed By: #### G FR, TSH, FT4, DIFF, MORPH, CMP, CBC, PBNP #### [address] [address] .Morphon 09-13-2024 Anisocytosis Ql (Bld) 2+ Normal [facility] Comment on above: Performed By: #### G FR, TSH, FT4, DIFF, MORPH, CMP, CBC, PBNP #### [address] [address] Microcytosis 2+ Normal [facility] Comment on above: Performed By: #### G FR, TSH, FT4, DIFF, MORPH, CMP, CBC, PBNP #### [facility] [address] [place], [place] [address] Platelet Estimate Normal Normal [facility] Comment on above: Performed By: #### G FR, TSH, FT4, DIFF, MORPH, CMP, CBC, PBNP #### [facility] [address] [place], [place] [address] 12 Lead EKGon 09-13-2024 12 Lead EKG Normal [facility] Absolute lymphocyte countOrd ered By: ED PROVIDER on 09-13-2024 Lymphocytes Auto (Unsp spec) [#/Vol] 1.62 10*3/uL 0.83-4.51 [facility] Absolute neutrophil countOrd ered By: ED PROVIDER on 09-13-2024 Neutrophils (Bld) [#/Vol] 3.0 10*3/uL 2.0-7.7 [facility] Atypical lymphocyte percenta geOrdered By: ED PROVIDER on 09-13-2024 Atypical Lymphocytes 1+ % [facility] Automated lymphocyte count a s percentage of total leukocytesOrdered By: ED PROVIDER on 09-13-2024 Lymphocytes/100 WBC Auto (Unsp spec) 29.3 % 19-41 [facility] BUN/creatinine ratioOrdered By: ED PROVIDER on 09-13-2024 Urea nitrogen/Creatinine [Mass ratio] 8.2 mg/mg Low - [facility] Basic Metabolic Profile (BMP )on 09-13-2024 Anion gap [Moles/Vol] 12 mmol/L Normal 5-15 [facility] Comment on above: Performed By: #### L 500.2500, L100.0100 ####[facility] [address] [place], [address] BUN/CRE 8.2 RATIO Low - [facility] Comment on above: Performed By: #### L 500.2500, L100.0100 ####[facility] [address] [place], [address] Calcium [Mass/Vol] 9.1 mg/dL Normal 7.6-11.0 [facility] Comment on above: Performed By: #### L 500.2500, L100.0100 ####[facility] [address] [place], [address] Chloride [Moles/Vol] 101 mmol/L Normal 96-108 [facility] Comment on above: Performed By: #### L 500.2500, L100.0100 ####[facility] [address] [place], [address] CO2 [Moles/Vol] 27.1 mmol/L Normal 22.0-29.0 [facility] Comment on above: Performed By: #### L 500.2500, L100.0100 ####[facility] [address] [place], [address] Creatinine [Mass/Vol] 1.0 mg/dL Normal 0.6-1.0 [facility] Comment on above: Performed By: #### L 500.2500, L100.0100 ####[facility] [address] [place], [address] GFR/1.73 sq M.predicted among non-blacks MDRD (S/P/Bld) [Vol rate/Area] 62 mL/min/{1.73_m2} Normal >60 [facility] Comment on above: Result Comment: mL/m in/1.73m2 CKD-EPI Creatinine Equation (2020) Performed By: #### L 500.2500, L100.0100 ####[facility] [address] [place], [address] Glucose [Mass/Vol] 112 mg/dL High 70-99 [facility] Comment on above: Performed By: #### L 500.2500, L100.0100 ####[facility] [address] [place], [address] Potassium [Moles/Vol] 4.1 mmol/L Normal 3.3-5.1 [facility] Comment on above: Performed By: #### L 500.2500, L100.0100 ####[facility] [address] [place], [address] Sodium [Moles/Vol] 139 mmol/L Normal 133-145 [facility] Comment on above: Performed By: #### L 500.2500, L100.0100 ####[facility] [address] [place], [address] Urea nitrogen [Mass/Vol] 8 mg/dL Normal 4-19 [facility] Comment on above: Performed By: #### L 500.2500, L100.0100 ####[facility] [address] [place], [address] Basophil percentageOrdered B y: ED PROVIDER on 09-13-2024 Basophils/100 WBC (Bld) 0.7 % 0-1 [facility] LM Ql (Bld)Ordere d By: ED PROVIDER on 09-13-2024 [place] Cells RARE [facility] CBCon 09-13-2024 Erythrocyte distribution width (RBC) [Ratio] 25.1 % High 11.5-15.5 [facility] Comment on above: Performed By: #### G FR, TSH, FT4, DIFF, MORPH, CMP, CBC, PBNP #### [place] [address] [place], [place] [address] Hematocrit (Bld) [Volume fraction] 36.6 % Normal 34.0-46.0 [facility] Comment on above: Performed By: #### G FR, TSH, FT4, DIFF, MORPH, CMP, CBC, PBNP #### [place] [address] [place], [place] [address] Hgb 11.7 G/dL Low 12.0-16.0 [facility] Comment on above: Performed By: #### G FR, TSH, FT4, DIFF, MORPH, CMP, CBC, PBNP #### [place] [address] [place], [place] [address] MCH (RBC) [Entitic mass] 25.1 pg Low 27.0-33.0 [facility] Comment on above: Performed By: #### G FR, TSH, FT4, DIFF, MORPH, CMP, CBC, PBNP #### [address] [address] MCHC 32.0 G/dL Normal 32.0-36.0 [facility] Comment on above: Performed By: #### G FR, TSH, FT4, DIFF, MORPH, CMP, CBC, PBNP #### [place] [id number] MCV (RBC) [Entitic vol] 78.7 fL Low 80.0-99.0 [facility] Comment on above: Performed By: #### G FR, TSH, FT4, DIFF, MORPH, CMP, CBC, PBNP #### [place] [id number] Platelet 283 10 3/mcL Normal 150-450 [facility] Comment on above: Performed By: #### G FR, TSH, FT4, DIFF, MORPH, CMP, CBC, PBNP #### [place] [address] Platelet mean volume (Bld) [Entitic vol] 7.0 fL Normal 6.6-10.5 [facility] Comment on above: Performed By: #### G FR, TSH, FT4, DIFF, MORPH, CMP, CBC, PBNP #### [place] [address] RBC 4.66 10 6/mcL Normal 4.10-5.30 [facility] Comment on above: Performed By: #### G FR, TSH, FT4, DIFF, MORPH, CMP, CBC, PBNP #### [place] [id number] WBC 5.6 10 3/mcL Normal 4.5-10.8 [facility] Comment on above: Performed By: #### G FR, TSH, FT4, DIFF, MORPH, CMP, CBC, PBNP #### [place] [address] [place], [place] [address] CBC W/Diff, Automatedon 08-20 FIDE CELLS RARE Normal [facility] Comment on above: Performed By: #### L 500.2500, L100.0100 ####[facility] [address] [place], [address] Anisocytosis Ql (Bld) 1+ Normal [facility] Comment on above: Performed By: #### L 500.2500, L100.0100 ####[facility] [address] [place], [address] ATYPICAL LYMPH 1+ Normal [facility] Comment on above: Performed By: #### L 500.2500, L100.0100 ####[facility] [address] [place], [address] TARGET CELLS 1+ Normal [facility] Comment on above: Performed By: #### L 500.2500, L100.0100 ####[facility] [address] [place], [address] CMPon 09-13-2024 Albumin Level 3.6 G/dL Normal 3.4-4.8 [facility] Comment on above: Performed By: #### G FR, TSH, FT4, DIFF, MORPH, CMP, CBC, PBNP #### [address] [address] Albumin/Globulin [Mass ratio] 1.1 {ratio} Normal 1.1-2.5 [facility] Comment on above: Performed By: #### G FR, TSH, FT4, DIFF, MORPH, CMP, CBC, PBNP #### [place] [address] [place], [place] [address] ALP [Catalytic activity/Vol] 67 U/L Normal 40-135 [facility] Comment on above: Performed By: #### G FR, TSH, FT4, DIFF, MORPH, CMP, CBC, PBNP #### [place] [address] [address] ALT [Catalytic activity/Vol] 28 U/L Normal 14-59 [facility] Comment on above: Performed By: #### G FR, TSH, FT4, DIFF, MORPH, CMP, CBC, PBNP #### [address] [address] AST [Catalytic activity/Vol] 20 U/L Normal 10-40 [facility] Comment on above: Performed By: #### G FR, TSH, FT4, DIFF, MORPH, CMP, CBC, PBNP #### [address] [address] Bili Total 0.2 mg/dL Normal 0.2-1.0 [facility] Comment on above: Result Comment: Use of this assay is not recommended for patients undergoing treatment with eltrombopag due to the potential for falsely elevated results. Performed By: #### G FR, TSH, FT4, DIFF, MORPH, CMP, CBC, PBNP #### [address] [address] BUN/Creatinine Ratio 7 ratio Normal 7-27 [facility] Comment on above: Performed By: #### G FR, TSH, FT4, DIFF, MORPH, CMP, CBC, PBNP #### [address] [address] Calcium [Mass/Vol] 9.6 mg/dL Normal 8.4-10.2 [facility] Comment on above: Performed By: #### G FR, TSH, FT4, DIFF, MORPH, CMP, CBC, PBNP #### [address] [address] Chloride [Moles/Vol] 102 mmol/L Normal 98-107 [facility] Comment on above: Performed By: #### G FR, TSH, FT4, DIFF, MORPH, CMP, CBC, PBNP #### [address] [address] CO2 [Moles/Vol] 34 mmol/L High 23-31 [facility] Comment on above: Performed By: #### G FR, TSH, FT4, DIFF, MORPH, CMP, CBC, PBNP #### [address] [address] Creatinine [Mass/Vol] 1.16 mg/dL High 0.55-1.02 [facility] Comment on above: Result Comment: Test ing performed on Siemens Dimension EXL analyzer using a modified kinetic Cristina technique. Performed By: #### G FR, TSH, FT4, DIFF, MORPH, CMP, CBC, PBNP #### [address] [address] Electrolyte Balance 3.0 mEq/L Low 4.0-15.0 [facility] Comment on above: Performed By: #### G FR, TSH, FT4, DIFF, MORPH, CMP, CBC, PBNP #### [address] [address] Globulin 3.3 G/dL Normal 1.5-3.8 [facility] Comment on above: Performed By: #### G FR, TSH, FT4, DIFF, MORPH, CMP, CBC, PBNP #### [address] [address] Glucose [Mass/Vol] 94 mg/dL Normal 83-110 [facility] Comment on above: Performed By: #### G FR, TSH, FT4, DIFF, MORPH, CMP, CBC, PBNP #### [address] [address] Potassium [Moles/Vol] 3.8 mmol/L Normal 3.5-5.1 [facility] Comment on above: Performed By: #### G FR, TSH, FT4, DIFF, MORPH, CMP, CBC, PBNP #### [address] [address] Sodium [Moles/Vol] 139 mmol/L Normal 136-145 [facility] Comment on above: Performed By: #### G FR, TSH, FT4, DIFF, MORPH, CMP, CBC, PBNP #### [address] [address] Total Protein 6.9 G/dL Normal 6.4-8.2 [facility] Comment on above: Performed By: #### G FR, TSH, FT4, DIFF, MORPH, CMP, CBC, PBNP #### [place] [address] [place], [place] [address] Urea nitrogen [Mass/Vol] 8 mg/dL Normal 7-18 [facility] Comment on above: Performed By: #### G FR, TSH, FT4, DIFF, MORPH, CMP, CBC, PBNP #### [place] [address] [place], [place] [address] CTA Chest W/WO Contraston CTA Chest W/WO Contrast Normal [facility] Carbon dioxide measurementOr dered By: ED PROVIDER on 09-13-2024 CO2 [Moles/Vol] 27.1 mmol/L 22.0-29.0 [facility] Chest PA and Lateralon 09-13 Chest PA and Lateral Normal [facility] Chloride measurementOrdered By: ED PROVIDER on 09-13-2024 Chloride [Moles/Vol] 101 mmol/L 96-108 [facility] Creatinine [Moles/Vol]Ordere d By: ED PROVIDER on 09-13-2024 Creatinine [Mass/Vol] 1.0 mg/dL 0.6-1.0 [facility] Crenated erythrocyte detecti on by light microscopyOrdered By: ED PROVIDER on 09-13-2024 Fide cells LM Ql (Bld) RARE [facility] Emergency Department Summary on 09-13-2024 Emergency Department Summary Normal [facility] Eosinophil percentageOrdered By: ED PROVIDER on 09-13-2024 Eosinophils/100 WBC (Bld) 0.4 % 0-5 [facility] Erythrocyte distribution wid th ratioOrdered By: ED PROVIDER on 09-13-2024 Erythrocyte distribution width (RBC) [Ratio] 22.8 % High 11.6-14.6 [facility] Erythrocyte distribution wid th standard deviationOrdered By: ED PROVIDER on 09-13-2024 Erythrocyte distribution width (RBC) [Entitic vol] 65.5 fL High 35.1-43.9 [facility] Erythrocyte distribution width (RBC) [Ratio] 65.5 fl High 35.1-43.9 [facility] FT4on 09-13-2024 Free T4 [Mass/Vol] 1.15 ng/dL Normal 0.76-1.46 [facility] Comment on above: Performed By: #### G FR, TSH, FT4, DIFF, MORPH, CMP, CBC, PBNP #### [facility] [address] [place], [place] [address] GFR/1.73 sq M.predicted ty g non-blacks MDRD (S/P/Bld) [Vol rate/Area]Ordered By: ED PROVIDER on 09-13-2024 Estimated GFR (MDRD) Non-Af Amer 62 >60 [facility] Comment on above: mL/min/1.73m2 CKD-EP I Creatinine Equation (2020) Glomerular filtration rate ( GFR) estimation/1.73 sq m using serum, plasma, or whole bOrdered By: ED PROVIDER on 09-13-2024 GFR/1.73 sq M.predicted among non-blacks MDRD (S/P/Bld) [Vol rate/Area] 62 mL/min/{1.73_m2} >60 [facility] Comment on above: mL/min/1.73m2 CKD-EP I Creatinine Equation (2020) Hematocrit Auto (Bld) [Volum e fraction]Ordered By: ED PROVIDER on 09-13-2024 Hematocrit (Bld) [Volume fraction] 37.7 % 37-47 [facility] Hemoglobin measurementOrdere d By: ED PROVIDER on 09-13-2024 Hemoglobin (Bld) [Mass/Vol] 11.4 g/dL Low 12.0-15.0 [facility] Immature granulocytes/100 WB C Auto (Bld)Ordered By: ED PROVIDER on 09-13-2024 Immature granulocytes/100 WBC (Bld) 0.400 % 0.0-0.9 [facility] Comment on above: IG% - Immature Granu locytes (promyelocytes, myelocytes and metamyelocytes) > 1% indicates that a LEFT SHIFT is Present. Influenza virus A and B and SARS-CoV-2 (COVID-19) and Respiratory syncytial virus RNAOrdered By: Chris Maria on 09-13-2024 SARS-CoV-2 (COVID-19) RNA MIGUE+probe Ql (Unsp spec) [facility] L501.4021on 09-13-2024 Trop T High Sen 19 ng/L High <=14 [facility] Comment on above: Performed By: #### L 501.4021 ####[facility] [address] [place], [address] LABORATORYOrdered By: SYSTEM SYSTEM on 09-13-2024 Albumin [...] PROVIDER on 09-13-2024 Anisocytosis Ql (Bld) 1+ [facility] Lymphocytes Auto (Unsp spec) [#/Vol]Ordered By: ED PROVIDER on 09-13-2024 Lymphocytes (Bld) [#/Vol] 1.62 10*3/uL 0.83-4.51 [facility] Lymphocytes/100 WBC Auto (Un sp spec)Ordered By: ED PROVIDER on 09-13-2024 Lymphocytes/100 WBC (Bld) 29.3 % 19-41 [facility] M100.678on 09-13-2024 M100.678 SARS-CoV-2 (COVID 19) Negative INFLUENZA A Negative INFLUENZA B Negative RSV PCR Negative Normal [facility] Comment on above: Performed By: #### M 100.678 ####[facility] [address] [place], [address] MCV (mean corpuscular volume ) determinationOrdered By: ED PROVIDER on 09-13-2024 MCV (RBC) [Entitic vol] 81.6 fL 81-99 [facility] Mean corpuscular hemoglobin (MCH) determinationOrdered By: ED PROVIDER on 09-13-2024 MCH (RBC) [Entitic mass] 24.7 pg Low 27.0-32.0 [facility] Mean corpuscular hemoglobin concentration (MCHC) determinationOrdered By: ED PROVIDER on 09-13-2024 MCHC (RBC) [Mass/Vol] 30.2 g/dL Low 32-36 [facility] Mean platelet volume determi nationOrdered By: ED PROVIDER on 09-13-2024 Platelet mean volume (Bld) [Entitic vol] 8.5 fL 6.2-12.0 [facility] Monocyte percentageOrdered B y: ED PROVIDER on 09-13-2024 Monocytes/100 WBC (Bld) 14.3 % High 0-10 [facility] Neutrophil percentageOrdered By: ED PROVIDER on 09-13-2024 Neutrophils/100 WBC (Bld) 54.9 % 47-70 [facility] No Panel InformationOrdered By: Chris Maria on 09-13-2024 Troponin T High Sensitivity 19 ng/L High <14 [facility] Nucleated red blood cell per centageOrdered By: ED PROVIDER on 09-13-2024 Nucleated RBC/100 WBC (Bld) [Ratio] 0 % 0-5 [facility] PBNPon 09-13-2024 Natriuretic peptide B (Bld) [Mass/Vol] 235 pg/mL High 0-125 [facility] Comment on above: Result Comment: NT-p roBNP results of less than 300 pg/mL effectively rules out acute congestive heart failure with 99% negative predictive value. Performed By: #### G FR, TSH, FT4, DIFF, MORPH, CMP, CBC, PBNP #### [id number] [place], [place] [address] Platelet countOrdered By: ED PROVIDER on 09-13-2024 Platelets (Bld) [#/Vol] 275 10*3/uL 150-450 [facility] RBC Auto (Bld) [#/Vol]Ordere d By: ED PROVIDER on 09-13-2024 RBC (Bld) [#/Vol] 4.62 10*6/uL 4.2-5.4 [facility] Serum glucose measurement (m ass/volume)Ordered By: ED PROVIDER on 09-13-2024 Glucose [Mass/Vol] 112 mg/dL High 70-99 [facility] Serum or plasma anion gap de termination (moles/volume)Ordered By: ED PROVIDER on 09-13-2024 Anion gap [Moles/Vol] 12 mmol/L 5-15 [facility] Serum or plasma calcium usman urement (mass/volume)Ordered By: ED PROVIDER on 09-13-2024 Calcium [Mass/Vol] 9.1 mg/dL 7.6-11.0 [facility] Serum or plasma creatinine m easurement (moles/volume)Ordered By: ED PROVIDER on 09-13-2024 Creatinine [Moles/Vol] 1.0 mg/dL 0.6-1.0 [facility] Serum or plasma potassium me asurementOrdered By: ED PROVIDER on 09-13-2024 Potassium [Moles/Vol] 4.1 mmol/L 3.3-5.1 [facility] Serum or plasma sodium measu rement (moles/volume)Ordered By: ED PROVIDER on 09-13-2024 Sodium [Moles/Vol] 139 mmol/L 133-145 [facility] Serum or plasma urea nitroge n measurement (mass/volume)Ordered By: ED PROVIDER on 09-13-2024 Urea nitrogen [Mass/Vol] 8 mg/dL 4-19 [facility] TSHon 09-13-2024 TSH Qn 0.88 m[IU]/L Normal 0.36-3.74 [facility] Comment on above: Performed By: #### G FR, TSH, FT4, DIFF, MORPH, CMP, CBC, PBNP #### [facility] [address] [place], [place] [address] TSH DL <= 0.005 mIU/L QnOrde red By: Chris Maria on 09-13-2024 Thyroid Stimulating Hormone (TSH) 0.644 uIU/mL 0.300-4.200 [facility] TSH Qn 0.644 uIU/mL 0.300-4.200 [facility] Target cell detectionOrdered By: ED PROVIDER on 09-13-2024 Target cells LM Ql (Bld) 1+ [facility] Target cells LM Ql (Bld)Orde red By: ED PROVIDER on 09-13-2024 Target Cells 1+ [facility] Thyroid Stim Hormone (TSH)on 09-13-2024 TSH 0.644 uIU/mL Normal 0.300-4.200 [facility] Comment on above: Performed By: #### L 501.9520 ####[facility] [address] [place], [place], [id number] White blood cell (WBC) count Ordered By: ED PROVIDER on 09-13-2024 WBC (Bld) [#/Vol] 5.5 10*3/uL 4.4-11.0 [facility] CNOVon 09-02-2024 CNOV Office Visit (UCWSTR) KARINA FERNANDO ([id number]) 1950 F Date Time Provider Department 09/02/24 1:15 [facility] visit today, we recorded the [...] AND INFLUEN (more content not included)... Normal [facility] Culture, Blood (WB)on 2023 CUB Blood cultures x2, from two different sites No growth in 5 days. Normal [facility] Comment on above: Performed By: #### M 200.1000, L503.6005 ####[facility] [address] [place], [address] 12 Lead EKGon 06-20-2024 12 Lead EKG Normal [facility] Absolute neutrophil countOrd ered By: Anh Irene on 06-20-2024 Neutrophils (Bld) [#/Vol] 4.2 10*3/uL 2.0-7.7 [facility] Basic Metabolic Profile (BMP )on 06-20-2024 BUN/CRE 5.2 RATIO Low 10-20 [facility] Comment on above: Order Comment: 'TROP ' Serial specimen #1, #2 or #3: 1 Performed By: #### L 300.8000, L100.0100, L500.2500, L501.4020 ####[facility] [address] [place], [address] CA,Total 9.3 mg/dL Normal 8.5-10.1 [facility] Comment on above: Order Comment: 'TROP ' Serial specimen #1, #2 or #3: 1 Performed By: #### L 300.8000, L100.0100, L500.2500, L501.4020 ####[facility] [address] [place], [address] Chloride [Moles/Vol] 110 mmol/L High 98-107 [facility] Comment on above: Order Comment: 'TROP ' Serial specimen #1, #2 or #3: 1 Performed By: #### L 300.8000, L100.0100, L500.2500, L501.4020 ####[facility] [address] [place], [address] CO2 [Moles/Vol] 27.0 mmol/L Normal 21.0-32.0 [facility] Comment on above: Order Comment: 'TROP ' Serial specimen #1, #2 or #3: 1 Performed By: #### L 300.8000, L100.0100, L500.2500, L501.4020 ####[facility] [address] [place], [address] Creatinine [Mass/Vol] 0.96 mg/dL Normal 0.55-1.02 [facility] Comment on above: Order Comment: 'TROP ' Serial specimen #1, #2 or #3: 1 Result Comment: The validity of the calculated GFR GFRAA in patients over70 years has not been determined. Clinical correlation isessential. Performed By: #### L 300.8000, L100.0100, L500.2500, L501.4020 ####[facility] [address] [place], [address] ECRCL 51.19 ml/min Normal [facility] Comment on above: Order Comment: 'TROP ' Serial specimen #1, #2 or #3: 1 Performed By: #### L 300.8000, L100.0100, L500.2500, L501.4020 ####[facility] [address] [place], [address] EST GFR - AA 73 mL/min Normal >60 [facility] Comment on above: Order Comment: 'TROP ' Serial specimen #1, #2 or #3: 1 Result Comment: Afri can Martiniquais GFR Calc Performed By: #### L 300.8000, L100.0100, L500.2500, L501.4020 ####[facility] [address] [place], [address] GAP 6 Normal 5-15 [facility] Comment on above: Order Comment: 'TROP ' Serial specimen #1, #2 or #3: 1 Performed By: #### L 300.8000, L100.0100, L500.2500, L501.4020 ####[facility] [address] [place], [address] GFR/1.73 sq M.predicted among non-blacks MDRD (S/P/Bld) [Vol rate/Area] 60 mL/min/{1.73_m2} Normal >60 [facility] Comment on above: Order Comment: 'TROP ' Serial specimen #1, #2 or #3: 1 Result Comment: Non- GFR Calc Performed By: #### L 300.8000, L100.0100, L500.2500, L501.4020 ####[facility] [address] [place], [address] Glucose [Mass/Vol] 105 mg/dL Normal 74-106 [facility] Comment on above: Order Comment: 'TROP ' Serial specimen #1, #2 or #3: 1 Result Comment: Fast ing Glucose result from 100 to 125 mg/dLsuggests IMPAIRED HOMEOSTASIS per A.D.A. criteria. Performed By: #### L 300.8000, L100.0100, L500.2500, L501.4020 ####[facility] [address] [place], [address] Potassium [Moles/Vol] 3.1 mmol/L Low 3.5-5.1 [facility] Comment on above: Order Comment: 'TROP ' Serial specimen #1, #2 or #3: 1 Performed By: #### L 300.8000, L100.0100, L500.2500, L501.4020 ####[facility] [address] [place], [address] Sodium [Moles/Vol] 143 mmol/L Normal 136-145 [facility] Comment on above: Order Comment: 'TROP ' Serial specimen #1, #2 or #3: 1 Performed By: #### L 300.8000, L100.0100, L500.2500, L501.4020 ####[facility] [address] [place], [address] Urea nitrogen [Mass/Vol] 5 mg/dL Low 7-18 [facility] Comment on above: Order Comment: 'TROP ' Serial specimen #1, #2 or #3: 1 Performed By: #### L 300.8000, L100.0100, L500.2500, L501.4020 ####[facility] [address] [place], [address] Basophil percentageOrdered B y: Remus Ungur on 06-20-2024 Basophils/100 WBC (Bld) 0.4 % 0-1 [facility] Blood cultureOrdered By: Rem us Ungur on 06-20-2024 Bacteria identified Cx Nom (Bld) No growth in 5 days. [facility] Bacteria identified Cx Nom (Bld) No growth in 5 days. [facility] Blood urea nitrogen (BUN)/cr eatinine ratioOrdered By: Remus Ungur on 06-20-2024 Urea nitrogen/Creatinine [Mass ratio] 5.2 mg/mg Low 10-20 [facility] CBC W/Diff, Automatedon 12-0 -2023 Absolute Lymph 1.95 X10 3/uL Normal 0.83-4.51 [facility] Comment on above: Performed By: #### L 300.8000, L100.0100, L500.2500, L501.4020 ####[facility] [address] [place], [address] Absolute Neut 4.2 X10 3/uL Normal 2.0-7.7 [facility] Comment on above: Performed By: #### L 300.8000, L100.0100, L500.2500, L501.4020 ####[facility] [address] [place], [address] Basophils/100 WBC (Bld) 0.4 % Normal 0-1 [facility] Comment on above: Performed By: #### L 300.8000, L100.0100, L500.2500, L501.4020 ####[facility] [address] [place], [address] Eosinophils/100 WBC (Bld) 0.1 % Normal 0-5 [facility] Comment on above: Performed By: #### L 300.8000, L100.0100, L500.2500, L501.4020 ####[facility] [address] [place], [address] Erythrocyte distribution width (RBC) [Ratio] 19.7 % High 11.6-14.6 [facility] Comment on above: Performed By: #### L 300.8000, L100.0100, L500.2500, L501.4020 ####[facility] [address] [place], [address] Hematocrit (Bld) [Volume fraction] 32.8 % Low 37-47 [facility] Comment on above: Performed By: #### L 300.8000, L100.0100, L500.2500, L501.4020 ####[facility] [address] [place], [address] Hemoglobin (Bld) [Mass/Vol] 9.2 g/dL Low 12.0-15.0 [facility] Comment on above: Performed By: #### L 300.8000, L100.0100, L500.2500, L501.4020 ####[facility] [address] [place], [address] IG% 0.400 Normal 0.0-0.9 [facility] Comment on above: Result Comment: IG% - Immature Granulocytes (promyelocytes, myelocytes andmetamyelocytes) > 1% indicates that a LEFT SHIFT is Present. Performed By: #### L 300.8000, L100.0100, L500.2500, L501.4020 ####[facility] [address] [place], [address] Lymphocytes/100 WBC (Bld) 27.8 % Normal 19-41 [facility] Comment on above: Performed By: #### L 300.8000, L100.0100, L500.2500, L501.4020 ####[facility] [address] [place], [address] MCH (RBC) [Entitic mass] 20.4 pg Low 27.0-32.0 [facility] Comment on above: Performed By: #### L 300.8000, L100.0100, L500.2500, L501.4020 ####[facility] [address] [place], [address] MCHC (RBC) [Mass/Vol] 28.0 g/dL Low 32-36 [facility] Comment on above: Performed By: #### L 300.8000, L100.0100, L500.2500, L501.4020 ####[facility] [address] [place], [address] MCV (RBC) [Entitic vol] 72.7 fL Low 81-99 [facility] Comment on above: Performed By: #### L 300.8000, L100.0100, L500.2500, L501.4020 ####[facility] [address] [place], [address] Monocytes/100 WBC (Bld) 11.0 % High 0-10 [facility] Comment on above: Performed By: #### L 300.8000, L100.0100, L500.2500, L501.4020 ####[facility] [address] [place], [address] Neutrophils/100 WBC (Bld) 60.3 % Normal 47-70 [facility] Comment on above: Performed By: #### L 300.8000, L100.0100, L500.2500, L501.4020 ####[facility] [address] [place], [address] Nucleated RBC (Bld) [#/Vol] 0 10*3/uL Normal 0-5 [facility] Comment on above: Performed By: #### L 300.8000, L100.0100, L500.2500, L501.4020 ####[facility] [address] [place], [address] Platelet mean volume (Bld) [Entitic vol] 8.4 fL Normal 6.2-12.0 [facility] Comment on above: Performed By: #### L 300.8000, L100.0100, L500.2500, L501.4020 ####[facility] [address] [place], [address] Platelets (Bld) [#/Vol] 332 10*3/uL Normal 150-450 [facility] Comment on above: Performed By: #### L 300.8000, L100.0100, L500.2500, L501.4020 ####[facility] [address] [place], [address] RBC (Bld) [#/Vol] 4.51 10*6/uL Normal 4.2-5.4 [facility] Comment on above: Performed By: #### L 300.8000, L100.0100, L500.2500, L501.4020 ####[facility] [address] [place], [address] RDW SD 51.4 fl High 35.1-43.9 [facility] Comment on above: Performed By: #### L 300.8000, L100.0100, L500.2500, L501.4020 ####[facility] [address] [place], [address] WBC (Bld) [#/Vol] 7.0 10*3/uL Normal 4.4-11.0 [facility] Comment on above: Performed By: #### L 300.8000, L100.0100, L500.2500, L501.4020 ####[facility] [address] [place], [address] Carbon dioxide measurementOr dered By: Anh Irene on 06-20-2024 CO2 [Moles/Vol] 27.0 mmol/L 21.0-32.0 [facility] Chest 1 View (Portable)on Chest 1 View (Portable) Normal [facility] Chloride measurementOrdered By: Anh Irene on 06-20-2024 Chloride [Moles/Vol] 110 mmol/L High 98-107 [facility] D-Dimer Quantitative (DVT/PE )on 06-20-2024 D-DIMER QUANT 0.46 FEU/ug/m Normal 0.27-0.49 [facility] Comment on above: Result Comment: NORM AL D-Dimer level (<0.50) indicates no DVT or PE. Performed By: #### L 300.8000, L100.0100, L500.2500, L501.4020 ####[facility] [address] [place], [address] D-dimer measurement for deep venous thrombosisOrdered By: Anh Irene on 06-20-2024 D-Dimer Quantitative (PE/DVT) 0.46 FEU/ug/m 0.27-0.49 [facility] Comment on above: NORMAL D-Dimer level (<0.50) indicates no DVT or PE. Emergency Department Summary on 06-20-2024 Emergency Department Summary Normal [facility] Eosinophil percentageOrdered By: Anh Irene on 06-20-2024 Eosinophils/100 WBC (Bld) 0.1 % 0-5 [facility] Erythrocyte distribution wid th ratioOrdered By: Anh Irene on 06-20-2024 Erythrocyte distribution width (RBC) [Ratio] 19.7 % High 11.6-14.6 [facility] Erythrocyte distribution wid th standard deviationOrdered By: Anh Irene on 06-20-2024 Erythrocyte distribution width (RBC) [Entitic vol] 51.4 fL High 35.1-43.9 [facility] Estimated glomerular filtrat ion rate (GFR) AmericanOrdered By: Anh Irene on 06-20-2024 Estimated GFR (MDRD) Amer 73 mL/min >60 [facility] Comment on above: GFR Calc Estimation of creatinine nikki aranceOrdered By: Anh Irene on 06-20-2024 Estimated Creatinine Clearance Calc 51.19 ml/min [facility] Glomerular filtration rate ( GFR) estimationOrdered By: Anh Irene on 06-20-2024 Estimated GFR (MDRD) Non-Af Amer 60 mL/min >60 [facility] Comment on above: Non- GFR Calc Glucose measurementOrdered B y: Anh Irene on 06-20-2024 Glucose [Mass/Vol] 105 mg/dL 74-106 [facility] Comment on above: Fasting Glucose resu lt from 100 to 125 mg/dL suggests IMPAIRED HOMEOSTASIS per A.D.A. criteria. Hematocrit Auto (Bld) [Volum e fraction]Ordered By: Anh Irene on 06-20-2024 Hematocrit (Bld) [Volume fraction] 32.8 % Low 37-47 [facility] Hemoglobin measurementOrdere d By: Anh Irene on 06-20-2024 Hemoglobin (Bld) [Mass/Vol] 9.2 g/dL Low 12.0-15.0 [facility] Immature granulocytes/100 WB C Auto (Bld)Ordered By: Anh Irene on 06-20-2024 Immature granulocytes/100 WBC (Bld) 0.400 % 0.0-0.9 [facility] Comment on above: IG% - Immature Granu locytes (promyelocytes, myelocytes and metamyelocytes) > 1% indicates that a LEFT SHIFT is Present. Influenza virus A and B and SARS-CoV-2 (COVID-19) and Respiratory syncytial virus RNAOrdered By: Anh Irene on 06-20-2024 SARS-CoV-2 (COVID-19) RNA MIGUE+probe Ql (Unsp spec) [facility] L501.4020on 06-20-2024 TROPONIN-I HS 7 pg/mL Normal 3.0-54.0 [facility] Comment on above: Order Comment: 'TROP ' Serial specimen #1, #2 or #3: 1 Result Comment: Moira hinds Note: New Test Units and Gender Specific Reference Ranges. For more information see Policy Stat Procedure [place] High Sensitivity Troponin (TNIH) and attachments. Performed By: #### L 300.8000, L100.0100, L500.2500, L501.4020 ####[facility] [address] [place], [address] Lactic Acidon 06-20-2024 Lactate [Moles/Vol] 2.1 mmol/L Invalid Interpretation Code 0.4-1.9 [facility] Comment on above: Order Comment: PATIE NT DISCHARGED PRIOR TO THIS ORDER REFLEXINGY Result Comment: HERMES ENT DISCHARGED PRIOR TO THIS ORDER REFLEXINGCritical Result(s) Called at: 10:07:36 06/20/2024 by:Valery Howard. Results read back by same. Performed By: #### M 200.1000, L503.6005 ####[facility] [address] [place], [place], [id number] Lymphocytes Auto (Unsp spec) [#/Vol]Ordered By: Anh Irene on 06-20-2024 Lymphocytes (Bld) [#/Vol] 1.95 10*3/uL 0.83-4.51 [facility] Lymphocytes/100 WBC Auto (Un sp spec)Ordered By: Anh Irene on 06-20-2024 Lymphocytes/100 WBC (Bld) 27.8 % 19-41 [facility] M100.678on 06-20-2024 M100.678 Pending SARS-CoV-2 (COVID 19) Negative INFLUENZA A Negative INFLUENZA B Negative RSV PCR Negative Normal [facility] Comment on above: Performed By: #### M 100.678 ####[facility] [address] [place], [place], [id number] MCV (mean corpuscular volume ) determinationOrdered By: Anh Irene on 06-20-2024 MCV (RBC) [Entitic vol] 72.7 fL Low 81-99 [facility] Mean corpuscular hemoglobin (MCH) determinationOrdered By: Anh Irene on 06-20-2024 MCH (RBC) [Entitic mass] 20.4 pg Low 27.0-32.0 [facility] Mean corpuscular hemoglobin concentration (MCHC) determinationOrdered By: Anh Irene on 06-20-2024 MCHC (RBC) [Mass/Vol] 28.0 g/dL Low 32-36 [facility] Mean platelet volume determi nationOrdered By: Anh Irene on 06-20-2024 Platelet mean volume (Bld) [Entitic vol] 8.4 fL 6.2-12.0 [facility] Monocyte percentageOrdered B y: Anh Irene on 06-20-2024 Monocytes/100 WBC (Bld) 11.0 % High 0-10 [facility] Neutrophil percentageOrdered By: Anh Irene on 06-20-2024 Neutrophils/100 WBC (Bld) 60.3 % 47-70 [facility] Nucleated red blood cell per centageOrdered By: Anh Irene on 06-20-2024 Nucleated RBC/100 WBC (Bld) [Ratio] 0 % 0-5 [facility] Platelet countOrdered By: Lili Irene on 06-20-2024 Platelets (Bld) [#/Vol] 332 10*3/uL 150-450 [facility] Potassium measurementOrdered By: Anh Irene on 06-20-2024 Potassium [Moles/Vol] 3.1 mmol/L Low 3.5-5.1 [facility] RBC Auto (Bld) [#/Vol]Ordere d By: Anh Irene on 06-20-2024 RBC (Bld) [#/Vol] 4.51 10*6/uL 4.2-5.4 [facility] Serum anion gap measurementO rdered By: Remus Irene on 06-20-2024 Anion gap [Moles/Vol] 6 mmol/L 5-15 [facility] Serum or plasma calcium usman urement (mass/volume)Ordered By: Anh Irene on 06-20-2024 Calcium [Mass/Vol] 9.3 mg/dL 8.5-10.1 [facility] Serum or plasma creatinine m easurement (mass/volume)Ordered By: Anh Irene on 06-20-2024 Creatinine [Mass/Vol] 0.96 mg/dL 0.55-1.02 [facility] Comment on above: The validity of the calculated GFR & GFRAA in patients over 70 years has not been determined. Clinical correlation is essential. Serum or plasma urea nitroge n measurement (mass/volume)Ordered By: Anh Irene on 06-20-2024 Urea nitrogen [Mass/Vol] 5 mg/dL Low 7-18 [facility] Sodium levelOrdered By: Kaylee Irene on 06-20-2024 Sodium [Moles/Vol] 143 mmol/L 136-145 [facility] Troponin IOrdered By: Taraus Irene on 06-20-2024 Troponin I High Sensitivity 7 pg/mL 3.0-54.0 [facility] Comment on above: Please Note: New Shirin t Units and Gender Specific Reference Ranges. For more information see Policy Stat Procedure [place] High Sensitivity Troponin (TNIH) and attachments. White blood cell (WBC) count Ordered By: Anh Irene on 06-20-2024 WBC (Bld) [#/Vol] 7.0 10*3/uL 4.4-11.0 [facility] CNOVon 05-31-2024 CNOV Office Visit (UCWSTR) KARINA FERNANDO ([id number]) 1950 F Date Time Provider Department 05/31/24 4:45 PM SERGIO MOHR [facility] During your visit today, we recorded the following information about you: Temperature Pulse Respiration Blood pressure 99.1 degrees 94/minute 18/minute 140/84 Weight 75.4 kg Sergio Mohr PA-C 05/31/2024 5:48 PM Signed This note was created using Occipital. Subjective Karina Fernando is a 73 year [...] Mother Lipid (more content not included)... Normal [facility] XR CHEST 2V FRONTAL/LATon XR CHEST 2V [...] IMPRESSION: Mild left base atelectasis or infiltrate Implementation Director: AMISHA Transcribe Date/Time: May 31 2024 5:27P Dictated by : JOSELYN VIDALES MD This examination was interpreted and the report reviewed and electronically signed by: JOSELYN VIDALES MD on May 31 2024 5:27PM EST [id number] CN Normal [facility] XR Chest PA and Lateralon IMPRESSION: Mild left base atelectasis or infiltrate Implementation Director: AMISHA Transcribe Date/Time: May 31 2024 5:27P [...] fractures. Hiatal hernia. DIVISION OF RADIOLOGY Provider, [facility] - 05/31/2024 * * *Final Report* * [...] IMPRESSION: Mild left base atelectasis or infiltrate Implementation Director: AMISHA Transcribe Date/Time: Nov 13 2024 5:27P Dictated by : JOSELYN VIDALES MD This examination was interpreted and the report reviewed and electronically signed by: JOSELYN VIDALES MD on May 31 2024 5:27PM EST [facility] Radiology Study observation (narrative) Sudeep rodney [facility] XR Chest PA and LateralOrder ed By: [facility] Provider on 05-31-2024 [facility] .Auto Diffon 02-11-2024 Basophil, Absolute 0.0 10 3/mcL Normal 0.0-0.2 [facility] ([place]) Comment on above: Performed By: #### M ALBR #### [address] [address] Basophils/100 WBC (Bld) 1.1 % Normal 0.0-2.5 [facility] ([place]) Comment on above: Performed By: #### M ALBR #### [address] [address] Eosinophil, Absolute 0.0 10 3/mcL Normal 0.0-0.4 [facility] ([place]) Comment on above: Performed By: #### M ALBR #### [address] [address] Eosinophils/100 WBC (Bld) 1.0 % Normal 0.0-7.0 [facility] ([place]) Comment on above: Performed By: #### M ALBR #### [address] [address] Lymphocyte, Absolute 1.7 10 3/mcL Normal 0.8-3.9 [facility] ([place]) Comment on above: Performed By: #### M ALBR #### [address] [address] Lymphocytes/100 WBC (Bld) 51.4 % High 10.0-50.0 [facility] ([place]) Comment on above: Performed By: #### M ALBR #### [address] [address] Monocyte, Absolute 0.4 10 3/mcL Normal 0.2-1.0 [facility] ([place]) Comment on above: Performed By: #### M ALBR #### [address] [address] Monocytes/100 WBC (Bld) 11.4 % Normal 1.7-13.0 [facility] ([place]) Comment on above: Performed By: #### M ALBR #### [address] [address] Neutrophils/100 WBC (Bld) 35.1 % Low 37.0-80.0 [facility] ([place]) Comment on above: Performed By: #### M ALBR #### Chyna [address] [address] .GFRon 02-11-2024 GFR 62 ml/min/1.73sqm Normal [facility] ([place]) Comment on above: Result Comment: GFR Population [...] ADIFF, GFR, MORPH, PBNP, MDW, CBC #### [place] [place], [place] [address] GFR Non- 51 ml/min/1.73sqm Normal [facility] ([place]) Comment on above: Result Comment: GFR Population [...] ADIFF, GFR, MORPH, PBNP, MDW, CBC #### [place] [id number] .MDWon 02-11-2024 Monocyte Distribution Width 15.05 Normal 0.00-20.00 [facility] ([place]) Comment on above: Result Comment: For ED adult patients suspected of sepsis, MDW<=20.0 does not rule out sepsis or risk of sepsis Performed By: #### A MED, TROPHS, BMP, ADIFF, GFR, MORPH, PBNP, MDW, CBC #### [place] [address] .Morphon 02-11-2024 Platelet Estimate Normal Normal [facility]) Comment on above: Performed By: #### A MED, TROPHS, BMP, ADIFF, GFR, MORPH, PBNP, MDW, CBC #### [place] [address] RBC morphology finding Nom (Bld) Normal Normal [facility]) Comment on above: Performed By: #### A MED, TROPHS, BMP, ADIFF, GFR, MORPH, PBNP, MDW, CBC #### [place] [address] .NEUABSon 02-11-2024 Neutrophil, Absolute 1.2 10 3/mcL Low 2.9-6.2 [facility]) Comment on above: Performed By: #### M ALBR #### [place] [address] BMPon 02-11-2024 BUN/Creatinine Ratio 10 ratio Normal 7-27 [facility]) Comment on above: Performed By: #### A MED, TROPHS, BMP, ADIFF, GFR, MORPH, PBNP, MDW, CBC #### [address] [address] Calcium [Mass/Vol] 9.4 mg/dL Normal 8.4-10.2 [facility] ([place]) Comment on above: Performed By: #### A MED, TROPHS, BMP, ADIFF, GFR, MORPH, PBNP, MDW, CBC #### [address] [address] Chloride [Moles/Vol] 104 mmol/L Normal 98-107 [facility] ([place]) Comment on above: Performed By: #### A MED, TROPHS, BMP, ADIFF, GFR, MORPH, PBNP, MDW, CBC #### [address] [address] CO2 [Moles/Vol] 32 mmol/L High 23-31 [facility] ([place]) Comment on above: Performed By: #### A MED, TROPHS, BMP, ADIFF, GFR, MORPH, PBNP, MDW, CBC #### [address] [address] Creatinine [Mass/Vol] 1.06 mg/dL High 0.55-1.02 [facility] ([place]) Comment on above: Performed By: #### A MED, TROPHS, BMP, ADIFF, GFR, MORPH, PBNP, MDW, CBC #### [address] [address] Electrolyte Balance 6.0 mEq/L Normal 4.0-15.0 [facility] ([place]) Comment on above: Performed By: #### A MED, TROPHS, BMP, ADIFF, GFR, MORPH, PBNP, MDW, CBC #### [address] [address] Glucose [Mass/Vol] 105 mg/dL Normal 83-110 [facility] ([place]) Comment on above: Performed By: #### A MED, TROPHS, BMP, ADIFF, GFR, MORPH, PBNP, MDW, CBC #### [address] [address] Potassium [Moles/Vol] 3.7 mmol/L Normal 3.5-5.1 [facility] ([place]) Comment on above: Performed By: #### A MED, TROPHS, BMP, ADIFF, GFR, MORPH, PBNP, MDW, CBC #### [address] [address] Sodium [Moles/Vol] 142 mmol/L Normal 136-145 [facility] ([place]) Comment on above: Performed By: #### A MED, TROPHS, BMP, ADIFF, GFR, MORPH, PBNP, MDW, CBC #### [address] [address] Urea nitrogen [Mass/Vol] 11 mg/dL Normal 7-18 [facility] ([place]) Comment on above: Performed By: #### A MED, TROPHS, BMP, ADIFF, GFR, MORPH, PBNP, MDW, CBC #### [address] [address] CBCon 02-11-2024 Erythrocyte distribution width (RBC) [Ratio] 18.4 % High 11.5-14.5 [facility] ([place]) Comment on above: Performed By: #### A MED, TROPHS, BMP, ADIFF, GFR, MORPH, PBNP, MDW, CBC #### [address] [address] Hematocrit (Bld) [Volume fraction] 31.6 % Low 37.0-47.0 [facility] ([place]) Comment on above: Performed By: #### A MED, TROPHS, BMP, ADIFF, GFR, MORPH, PBNP, MDW, CBC #### [address] [address] Hgb 9.8 G/dL Low 12.0-16.0 [facility] ([place]) Comment on above: Performed By: #### A MED, TROPHS, BMP, ADIFF, GFR, MORPH, PBNP, MDW, CBC #### [address] [address] MCH (RBC) [Entitic mass] 22.6 pg Low 27.0-31.2 [facility] ([place]) Comment on above: Performed By: #### A MED, TROPHS, BMP, ADIFF, GFR, MORPH, PBNP, MDW, CBC #### [address] [address] MCHC 31.1 G/dL Low 33.0-37.0 [facility] ([place]) Comment on above: Performed By: #### A MED, TROPHS, BMP, ADIFF, GFR, MORPH, PBNP, MDW, CBC #### [address] [address] MCV (RBC) [Entitic vol] 72.5 fL Low 80.0-94.0 [facility] ([place]) Comment on above: Performed By: #### A MED, TROPHS, BMP, ADIFF, GFR, MORPH, PBNP, MDW, CBC #### [address] [address] Platelet 310 10 3/mcL Normal 130-400 [facility] ([place]) Comment on above: Performed By: #### A MED, TROPHS, BMP, ADIFF, GFR, MORPH, PBNP, MDW, CBC #### [address] [address] Platelet mean volume (Bld) [Entitic vol] 6.5 fL Low 7.4-10.4 [facility] ([place]) Comment on above: Performed By: #### A MED, TROPHS, BMP, ADIFF, GFR, MORPH, PBNP, MDW, CBC #### [address] [address] RBC 4.36 10 6/mcL Normal 4.20-5.40 [facility] ([place]) Comment on above: Performed By: #### A MED, TROPHS, BMP, ADIFF, GFR, MORPH, PBNP, MDW, CBC #### [address] [address] WBC 3.3 10 3/mcL Low 4.6-10.8 [facility] ([place]) Comment on above: Performed By: #### A MED, TROPHS, BMP, ADIFF, GFR, MORPH, PBNP, MDW, CBC #### [place] [address] LABORATORYOrdered By: SYSTEM SYSTEM on 02-11-2024 Basophil, [...] ng/L Male: 0-76 ng/L Testing performed on ybuy using a homogeneous sandwich chemiluminescent immunoassay based on [employer] technology. Urea nitrogen [Mass/Vol] 11 mg/dL Normal 7 - 18 mg/dL AO ADM SS Urea nitrogen/Creatinine [Mass ratio] 10 ratio Normal 7 - 27 ratio AO ADM SS WBC (Bld) [#/Vol] 3.3 103/mcL Low 4.6 - 10.8 10^3/mcL AO Workflow SS PBNPon 02-11-2024 Natriuretic peptide B (Bld) [Mass/Vol] 86 pg/mL Normal 0-125 [facility] ([place]) Comment on above: Result Comment: NT-p roBNP results of less than 300 pg/mL effectively rules out acute congestive heart failure with 99% negative predictive value. Performed By: #### A MED, TROPHS, BMP, ADIFF, GFR, MORPH, TYLER, W, CBC #### [address] [facility] High Sensitivity Troponin I 6 ng/L Normal 0-51 [facility] ([place]) Comment on above: Result Comment: High Sensitive Troponin I Reference Ranges: Female: 0-51 ng/L Male: 0-76 ng/L Testing performed on ybuy using a homogeneous sandwich chemiluminescent immunoassay based on [employer] technology. Performed By: #### A MED, TROPHS, BMP, ADIFF, GFR, HUY, TYLER, W, CBC #### [address] [address] XR CHEST 1 VIEWon 02-11-2024 XR CHEST [...] 02/11/2024 7:17:20 AM Ordering Provider: NILTON Botello [facility] ([place]) [place] MAMMOGRAM SCREENING BILAT ERAL W/TOMOon 11-26-2023 MA MAMMOGRAM SCREENING BILATERAL W/AVINASH ORIGINAL FROM: [address] [address] PROCEDURE FOR: KARINA FERNANDO [address] [place] [phone] Home: [facility]ID[facility] [id number] [id number] Exam#: [id number] : 1950 Age: 72 TO: TU HECTOR DO [address] [address] Fax: NO FAX EXAMINATION: SCREENING DIGITAL BILATERAL [...] screening with annual mammograms is recommended. Misbah zick risk calculations, generated with the history provided, [...] addition to annual mammographic screening per the [employer]. BIRADS: MAMMOGRAM BI-RADS: 2: Benign finding RECALL: 1 year screening RECALL TYPE: mammo LETTER SENT: Normal BI-RADS 1 and 2 Interpreted by: Jaswinder Mei MD Preliminary Report By: Jaswinder Mei MD Electronically signed By Jaswinder Mei MD Dictated Date: 11/26/2023 10:58:30 AM Prelim Date: 11/26/2023 11:04:22 AM Sign Date: 11/26/2023 11:04:22 AM Ordering Provider: TU HECTOR Coroner Technician: ANNAMARIA MUSE RT(R)(M)(CT) letter sent: Normal BI-RADS 1 and 2 Mammogram BI-RADS: 2 Benign Normal [facility] ([place]) LABORATORYOrdered By: Leah Bunch on 09-29-2023 Albumin DL <= 20 mg/L (U) [Mass/Vol] 190 mcg/dL Invalid Interpretation Code AO ADM SS Albumin/Creatinine DL <= 20 mg/L (U) [Mass ratio] 6 mcg/mg Normal 0 - 30 mcg/mg AO ADM SS Creatinine (U) [Mass/Vol] 33.5 mg/dL Normal 28.0 - 117.0 mg/dL AO ADM SS MALBRon 09-29-2023 U Creatinine 33.5 mg/dL Normal 28.0-117.0 [facility] ([place]) Comment on above: Performed By: #### M ALBR #### [address] [address] U Microalb 190 mcg/dL Normal [facility] ([place]) Comment on above: Performed By: #### M ALBR #### [address] [address] U Ratio Alb/Cre 6 mcg/mg Normal 0-30 [facility] ([place]) Comment on above: Performed By: #### M ALBR #### [address] [address] MALBRon 03-10-2023 U Creatinine 58.1 mg/dL Normal 28.0-117.0 [facility] ([place]) Comment on above: Performed By: #### M ALBR #### [address] [address] U Microalb 389 mcg/dL Normal [facility] ([place]) Comment on above: Performed By: #### M ALBR #### [address] [address] U Ratio Alb/Cre 7 mcg/mg Normal 0-30 [facility] ([place]) Comment on above: Performed By: #### M ALBR #### [address] [address] LABORATORYOrdered By: Leah Bunch on 03-09-2023 Albumin [...] ADM SS LABORATORYOrdered By: SYSTEM SYSTEM on 10-23-2021 GFR 70 ml/min/1.73sqm Invalid Interpretation Code AO Chemistry S GFR Non- 58 ml/min/1.73sqm Invalid Interpretation Code AO Chemistry S XR Chest PA and Lateralon IMPRESSION: No acute radiographic abnormality. Implementation Director: AMISHA Transcribe Date/Time: Jan 14 2021 10:21A Dictated by : JOSELYN VIDALES MD This examination was interpreted and the report reviewed and electronically signed by: JOSELYN VIDALES MD on Jan 14 2021 10:22AM [facility] * * *Final Report* [...] left rib fractures. DIVISION OF RADIOLOGY Provider, [facility] - 01/14/2021 * * *Final Report* * [...] fractures. IMPRESSION IMPRESSION: No acute radiographic abnormality. Implementation Director: AMISHA Transcribe Date/Time: Jan 14 2021 10:21A Dictated by : JOSELYN VIDALES MD This examination was interpreted and the report reviewed and electronically signed by: JOSELYN VIDALES MD on Jan 14 2021 10:22AM [facility] Radiology Study observation (narrative) Sudeep [facility] XR Chest PA and LateralOrder ed By: [facility] Provider on 01-14-2021 [facility] XR Chest PA and Lateralon IMPRESSION: 1. No radiographic evidence of acute cardiopulmonary process. 2. Moderately large hiatal hernia. Implementation Director: AMISHA Transcribe Date/Time: Dec 17 2020 2:23P Dictated by : LALI JAIN MD This examination was interpreted and the report reviewed and electronically signed by: LALI JAIN MD on Dec 17 2020 2:24PM [facility] * * *Final Report* [...] rib fracture deformities. DIVISION OF RADIOLOGY Provider, [facility] - 12/17/2020 * * *Final Report* * [...] cardiopulmonary process. 2. Moderately large hiatal hernia. Implementation Director: PSCB Transcribe Date/Time: Dec 17 2020 2:23P Dictated by : LALI JAIN MD This examination was interpreted and the report reviewed and electronically signed by: LALI JAIN MD on Dec 17 2020 2:24PM EST [facility] Radiology Study observation (narrative) Sudeep rodney [facility] XR Chest PA and LateralOrder ed By: [facility] Provider on 12-17-2020 [facility] Vital Signs Date Time Vital Sign Value Performing Clinician Facility 01-28-2025 22:17-0400 Body temperature 98.1 [degF] Dr. Tu Hector DO Work Phone: [facility] 01-28-2025 22:17-0400 Diastolic blood pressure 75 mm[Hg] Dr. Tu Hector DO Work Phone: [facility] 01-28-2025 22:17-0400 Heart rate 97 /min Dr. Tu Hector DO Work Phone: [facility] 01-28-2025 22:17-0400 Respiratory rate 16 /min Dr. Tu Hector DO Work Phone: [facility] 01-28-2025 22:17-0400 SaO2% (BldA) [Mass fraction] 98 % Dr. Tu Hector DO Work Phone: [facility] 01-28-2025 22:17-0400 Systolic blood pressure 120 mm[Hg] Dr. Tu Hector DO Work Phone: [facility] 01-28-2025 19:00-0400 Inhaled oxygen flow rate 3 L/min Dr. Tu Hector DO Work Phone: [facility] 01-28-2025 17:49-0400 Body mass index (BMI) [Ratio] 27.6 kg/m2 Dr. Tu Hector DO Work Phone: [facility] 01-28-2025 17:49-0400 Body weight 70.[address] Tu Hector DO Work Phone: [facility] 01-28-2025 17:44-0400 Body height 160.[address] Tu Hector DO Work Phone: [facility] 01-23-2025 13:07-0400 Body temperature 96.8 [degF] Dr. Tu Hector DO Work Phone: [facility] 01-23-2025 13:07-0400 Diastolic blood pressure 75 mm[Hg] Dr. Tu Hector DO Work Phone: [facility] 01-23-2025 13:07-0400 Heart rate 81 /min Dr. Tu Hector DO Work Phone: [facility] 01-23-2025 13:07-0400 Respiratory rate 16 /min Dr. Tu Hector DO Work Phone: [facility] 01-23-2025 13:07-0400 SaO2% (BldA) [Mass fraction] 100 % Dr. Tu Hector DO Work Phone: [facility] 01-23-2025 13:07-0400 Systolic blood pressure 118 mm[Hg] Dr. Tu Hector DO Work Phone: [facility] 01-23-2025 10:05-0400 Body height 160.[address] Tu Hector DO Work Phone: [facility] 01-23-2025 10:05-0400 Body mass index (BMI) [Ratio] 27.8 kg/m2 Dr. Tu Hector DO Work Phone: [facility] 01-23-2025 10:05-0400 Body temperature 97.1 [degF] Dr. Tu Hector DO Work Phone: [facility] 01-23-2025 10:05-0400 Body weight 71.[address] Tu Hector DO Work Phone: [facility] 01-23-2025 10:05-0400 Diastolic blood pressure 73 mm[Hg] Dr. Tu Hector DO Work Phone: [facility] 01-23-2025 10:05-0400 Heart rate 91 /min Dr. Tu Hector DO Work Phone: [facility] 01-23-2025 10:05-0400 Respiratory rate 15 /min Dr. Tu Hector DO Work Phone: [facility] 01-23-2025 10:05-0400 SaO2% (BldA) [Mass fraction] 93 % Dr. Tu Hector DO Work Phone: [facility] 01-23-2025 10:05-0400 Systolic blood pressure 114 mm[Hg] Dr. Tu Hector DO Work Phone: [facility] 01-04-2025 14:42-0400 Body temperature 96.7 [degF] Dr. Tu Hector DO Work Phone: [facility] 01-04-2025 14:42-0400 Diastolic blood pressure 71 mm[Hg] Dr. Tu Hector DO Work Phone: [facility] 01-04-2025 14:42-0400 Heart rate 94 /min Dr. Tu Hector DO Work Phone: [facility] 01-04-2025 14:42-0400 Respiratory rate 16 /min Dr. Tu Hector DO Work Phone: [facility] 01-04-2025 14:42-0400 Systolic blood pressure 119 mm[Hg] Dr. Tu Hector DO Work Phone: [facility] 01-04-2025 13:01-0400 Inhaled oxygen flow rate 3 L/min Dr. Tu Hector DO Work Phone: [facility] 01-04-2025 13:01-0400 SaO2% (BldA) [Mass fraction] 99 % Dr. Tu Hector DO Work Phone: [facility] 01-02-2025 09:55-0400 Body height 160.[address] Tu Hector DO Work Phone: [facility] 01-02-2025 09:55-0400 Body mass index (BMI) [Ratio] 27.4 kg/m2 Dr. Tu Hector DO Work Phone: [facility] 01-02-2025 09:55-0400 Body temperature 97.6 [degF] Dr. Tu Hector DO Work Phone: [facility] 01-02-2025 09:55-0400 Body weight 70.[address] Tu Hector DO Work Phone: [facility] 01-02-2025 09:55-0400 Diastolic blood pressure 77 mm[Hg] Dr. Tu Hector DO Work Phone: [facility] 01-02-2025 09:55-0400 Heart rate 102 /min Dr. Tu Hector DO Work Phone: [facility] 01-02-2025 09:55-0400 Inhaled oxygen flow rate 3 L/min Dr. Tu Hector DO Work Phone: [facility] 01-02-2025 09:55-0400 Respiratory rate 14 /min Dr. Tu Hector DO Work Phone: [facility] 01-02-2025 09:55-0400 SaO2% (BldA) [Mass fraction] 92 % Dr. Tu Hector DO Work Phone: [facility] 01-02-2025 09:55-0400 Systolic blood pressure 114 mm[Hg] Dr. Tu Hector DO Work Phone: [facility] 12-14-2024 15:04-0400 Body temperature 97.1 [degF] Dr. Tu Hector DO Work Phone: [facility] 12-14-2024 15:04-0400 Diastolic blood pressure 79 mm[Hg] Dr. Tu Hector DO Work Phone: [facility] 12-14-2024 15:04-0400 Heart rate 82 /min Dr. Tu Hector DO Work Phone: [facility] 12-14-2024 15:04-0400 Respiratory rate 16 /min Dr. Tu Hector DO Work Phone: [facility] 12-14-2024 15:04-0400 SaO2% (BldA) [Mass fraction] 100 % Dr. Tu Hector DO Work Phone: [facility] 12-14-2024 15:04-0400 Systolic blood pressure 121 mm[Hg] Dr. Tu Hector DO Work Phone: [facility] 12-14-2024 13:06-0400 Inhaled oxygen flow rate 3 L/min Dr. Tu Hector DO Work Phone: [facility] 12-12-2024 09:06-0400 Body height 160.[address] Tu Hector DO Work Phone: [facility] 12-12-2024 09:06-0400 Body mass index (BMI) [Ratio] 27.8 kg/m2 Dr. Tu Hector DO Work Phone: [facility] 12-12-2024 09:06-0400 Body temperature 97.9 [degF] Dr. Tu Hector DO Work Phone: [facility] 12-12-2024 09:06-0400 Body weight 71.[address] Tu Hector DO Work Phone: [facility] 12-12-2024 09:06-0400 Diastolic blood pressure 70 mm[Hg] Dr. Tu Hector DO Work Phone: [facility] 12-12-2024 09:06-0400 Heart rate 82 /min Dr. Tu Hector DO Work Phone: [facility] 12-12-2024 09:06-0400 Inhaled oxygen flow rate 3 L/min Dr. Tu Hector DO Work Phone: [facility] 12-12-2024 09:06-0400 Respiratory rate 15 /min Dr. Tu Hector DO Work Phone: [facility] 12-12-2024 09:06-0400 SaO2% (BldA) [Mass fraction] 94 % Dr. Tu Hector DO Work Phone: [facility] 12-12-2024 09:06-0400 Systolic blood pressure 122 mm[Hg] Dr. Tu Hector DO Work Phone: [facility] 11-24-2024 16:15-0400 Diastolic Blood Pressure Non-Invasive 68 mm[Hg] ENID FORMAN MD [facility] 11-24-2024 16:15-0400 Heart rate 86 /min ENID FORMAN MD [facility] 11-24-2024 16:15-0400 Reason For Taking VItal Signs ENID FORMAN MD [facility] 11-24-2024 16:15-0400 Respiratory rate 20 /min ENID FORMAN MD [facility] 11-24-2024 16:15-0400 Systolic Blood Pressure Non-Invasive 168 mm[Hg] ENID FORMAN MD [facility] 11-24-2024 13:54-0400 Body temperature 98.42 [degF] ENID FORMAN MD [facility] 11-24-2024 13:54-0400 Body weight 73.4 kg ENID FORMAN MD [address] [place] [address] 11-24-2024 13:54-0400 Diastolic Blood Pressure Non-Invasive 62 mm[Hg] ENID FORMAN MD [address] [place] [address] 11-24-2024 13:54-0400 Heart rate 89 /min ENID FORMAN MD [facility] 11-24-2024 13:54-0400 Respiratory rate 20 /min ENID FORMAN MD [facility] 11-24-2024 13:54-0400 Systolic Blood Pressure Non-Invasive 174 mm[Hg] ENID FORMAN MD [facility] 11-22-2024 13:03-0400 Body temperature 96.6 [degF] Dr. Tu Hector DO Work Phone: [facility] 11-22-2024 13:03-0400 Diastolic blood pressure 54 mm[Hg] Dr. Tu Hector DO Work Phone: [facility] 11-22-2024 13:03-0400 Heart rate 69 /min Dr. Tu Hector DO Work Phone: [facility] 11-22-2024 13:03-0400 Inhaled oxygen flow rate 3 L/min Dr. Tu Hector DO Work Phone: [facility] 11-22-2024 13:03-0400 Respiratory rate 16 /min Dr. Tu Hector DO Work Phone: [facility] 11-22-2024 13:03-0400 SaO2% (BldA) [Mass fraction] 96 % Dr. Tu Hector DO Work Phone: [facility] 11-22-2024 13:03-0400 Systolic blood pressure 110 mm[Hg] Dr. Tu Hector DO Work Phone: [facility] 11-21-2024 08:46-0400 Body mass index (BMI) [Ratio] 28.3 kg/m2 Dr. Tu Hector DO Work Phone: [facility] 11-21-2024 08:46-0400 Body temperature 97.9 [degF] Dr. Tu Hector DO Work Phone: [facility] 11-21-2024 08:46-0400 Body weight 72.[address] Tu Hector DO Work Phone: [facility] 11-21-2024 08:46-0400 Diastolic blood pressure 75 mm[Hg] Dr. Tu Hector DO Work Phone: [facility] 11-21-2024 08:46-0400 Heart rate 78 /min Dr. Tu Hector DO Work Phone: [facility] 11-21-2024 08:46-0400 Inhaled oxygen flow rate 3 L/min Dr. Tu Hector DO Work Phone: [facility] 11-21-2024 08:46-0400 Respiratory rate 14 /min Dr. Tu Hector DO Work Phone: [facility] 11-21-2024 08:46-0400 SaO2% (BldA) [Mass fraction] 91 % Dr. Tu Hector DO Work Phone: [facility] 11-21-2024 08:46-0400 Systolic blood pressure 118 mm[Hg] Dr. Tu Hector DO Work Phone: [facility] 11-17-2024 11:30-0400 Body mass index (BMI) [Ratio] 27.6 kg/m2 Dr. Tu Hector DO Work Phone: [facility] 11-17-2024 11:30-0400 Body weight 70.[address] Tu Hector DO Work Phone: [facility] 11-17-2024 11:30-0400 Diastolic blood pressure 63 mm[Hg] Dr. Tu Hector DO Work Phone: [facility] 11-17-2024 11:30-0400 Heart rate 82 /min Dr. uT Hector DO Work Phone: [facility] 11-17-2024 11:30-0400 Inhaled oxygen flow rate 3 L/min Dr. Tu Hector DO Work Phone: [facility] 11-17-2024 11:30-0400 Respiratory rate 18 /min Dr. Tu Hector DO Work Phone: [facility] 11-17-2024 11:30-0400 SaO2% (BldA) [Mass fraction] 91 % Dr. Tu Hector DO Work Phone: [facility] 11-17-2024 11:30-0400 Systolic blood pressure 99 mm[Hg] Dr. Tu Hector DO Work Phone: [facility] 11-16-2024 14:40-0400 Body temperature 97.1 [degF] Dr. Tu Hector DO Work Phone: [facility] 11-16-2024 14:40-0400 Diastolic blood pressure 72 mm[Hg] Dr. Tu Hector DO Work Phone: [facility] 11-16-2024 14:40-0400 Heart rate 84 /min Dr. Tu Hector DO Work Phone: [facility] 11-16-2024 14:40-0400 Respiratory rate 16 /min Dr. Tu Hector DO Work Phone: [facility] 11-16-2024 14:40-0400 SaO2% (BldA) [Mass fraction] 96 % Dr. Tu Hector DO Work Phone: [facility] 11-16-2024 14:40-0400 Systolic blood pressure 100 mm[Hg] Dr. Tu Hector DO Work Phone: [facility] 11-16-2024 14:35-0400 Inhaled oxygen flow rate 3 L/min Dr. Tu Hector DO Work Phone: [facility] 11-16-2024 12:05-0400 Body mass index (BMI) [Ratio] 27.7 kg/m2 Dr. Tu Hector DO Work Phone: [facility] 11-16-2024 12:05-0400 Body weight [address] Tu Hector DO Work Phone: [facility] 11-09-2024 09:09-0400 Body mass index (BMI) [Ratio] 28.3 kg/m2 Dr. Tu Hector DO Work Phone: [facility] 11-09-2024 09:09-0400 Body temperature 98.1 [degF] Dr. Tu Hector DO Work Phone: [facility] 11-09-2024 09:09-0400 Body weight 72.[address] Tu Hector DO Work Phone: [facility] 11-09-2024 09:09-0400 Diastolic blood pressure 74 mm[Hg] Dr. Tu Hector DO Work Phone: [facility] 11-09-2024 09:09-0400 Heart rate 81 /min Dr. Tu Hector DO Work Phone: [facility] 11-09-2024 09:09-0400 Respiratory rate 18 /min Dr. Tu Hector DO Work Phone: [facility] 11-09-2024 09:09-0400 SaO2% (BldA) [Mass fraction] 97 % Dr. Tu Hector DO Work Phone: [facility] 11-09-2024 09:09-0400 Systolic blood pressure 116 mm[Hg] Dr. Tu Hector DO Work Phone: [facility] 11-02-2024 09:51-0400 Body mass index (BMI) [Ratio] 30.5 kg/m2 Dr. Tu Hector DO Work Phone: [facility] 10-31-2024 08:18-0400 Body mass index (BMI) [Ratio] 29.4 kg/m2 Dr. Tu Hector DO Work Phone: [facility] 10-31-2024 08:18-0400 Body temperature 98.3 [degF] Dr. Tu Hector DO Work Phone: [facility] 10-31-2024 08:18-0400 Body weight 75.[address] Tu Hector DO Work Phone: [facility] 10-31-2024 08:18-0400 Diastolic blood pressure 81 mm[Hg] Dr. Tu Hector DO Work Phone: [facility] 10-31-2024 08:18-0400 Heart rate 96 /min Dr. Tu Hector DO Work Phone: [facility] 10-31-2024 08:18-0400 Respiratory rate 16 /min Dr. Tu Hector DO Work Phone: [facility] 10-31-2024 08:18-0400 SaO2% (BldA) [Mass fraction] 98 % Dr. Tu Hector DO Work Phone: [facility] 10-31-2024 08:18-0400 Systolic blood pressure 125 mm[Hg] Dr. Tu Hector DO Work Phone: [facility] 10-27-2024 12:45-0400 Body mass index (BMI) [Ratio] 18.9 kg/m2 Dr. Tu Hector DO Work Phone: [facility] 10-27-2024 12:45-0400 Body temperature 97.6 [degF] Dr. Tu Hector DO Work Phone: [facility] 10-27-2024 12:45-0400 Body weight 48.[address] Tu Hector DO Work Phone: [facility] 10-27-2024 12:45-0400 Diastolic blood pressure 70 mm[Hg] Dr. Tu Hector DO Work Phone: [facility] 10-27-2024 12:45-0400 Heart rate 100 /min Dr. Tu Hector DO Work Phone: [facility] 10-27-2024 12:45-0400 Inhaled oxygen flow rate 2.5 L/min Dr. Tu Hector DO Work Phone: [facility] 10-27-2024 12:45-0400 Respiratory rate 18 /min Dr. Tu Hector DO Work Phone: [facility] 10-27-2024 12:45-0400 SaO2% (BldA) [Mass fraction] 96 % Dr. Tu Hector DO Work Phone: [facility] 10-27-2024 12:45-0400 Systolic blood pressure 107 mm[Hg] Dr. Tu Hector DO Work Phone: [facility] 10-26-2024 16:17-0400 Body mass index (BMI) [Ratio] 29.8 kg/m2 Dr. Tu Hector DO Work Phone: [facility] 10-26-2024 16:17-0400 Body temperature 98.5 [degF] Dr. Tu Hector DO Work Phone: [facility] 10-26-2024 16:17-0400 Body weight 76.[address] Tu Hector DO Work Phone: [facility] 10-26-2024 16:17-0400 Diastolic blood pressure 76 mm[Hg] Dr. Tu Hector DO Work Phone: [facility] 10-26-2024 16:17-0400 Heart rate 115 /min Dr. Tu Hector DO Work Phone: [facility] 10-26-2024 16:17-0400 Respiratory rate 18 /min Dr. Tu Hector DO Work Phone: [facility] 10-26-2024 16:17-0400 SaO2% (BldA) [Mass fraction] 98 % Dr. Tu Hector DO Work Phone: [facility] 10-26-2024 16:17-0400 Systolic blood pressure 116 mm[Hg] Dr. Tu Hector DO Work Phone: [facility] 10-26-2024 10:37-0400 Body height 160 cm Joselyn Tucker MD Work Phone: [facility] 10-26-2024 10:37-0400 Body mass index (BMI) [Ratio] 29.58 kg/m2 Joselyn Tucker MD Work Phone: [facility] 10-26-2024 10:37-0400 Body weight 75.75 kg Joselyn Tucker MD Work Phone: [facility] 10-26-2024 10:37-0400 Diastolic blood pressure 80 mm[Hg] Joselyn Tucker MD Work Phone: [facility] 10-26-2024 10:37-0400 Heart rate 98 /min Joselyn Tucker MD Work Phone: [facility] 10-26-2024 10:37-0400 Systolic blood pressure 120 mm[Hg] Joselyn Tucker MD Work Phone: [facility] 10-25-2024 15:11-0400 Body mass index (BMI) [Ratio] 29.7 kg/m2 Dr. Tu Hector DO Work Phone: [facility] 10-25-2024 15:11-0400 Body temperature 98.5 [degF] Dr. Tu Hector DO Work Phone: [facility] 10-25-2024 15:11-0400 Body weight [address] Tu Hector DO Work Phone: [facility] 10-25-2024 15:11-0400 Diastolic blood pressure 74 mm[Hg] Dr. Tu Hector DO Work Phone: [facility] 10-25-2024 15:11-0400 Heart rate 89 /min Dr. Tu Hector DO Work Phone: [facility] 10-25-2024 15:11-0400 Inhaled oxygen flow rate 2.5 L/min Dr. Tu Hector DO Work Phone: [facility] 10-25-2024 15:11-0400 Respiratory rate 18 /min Dr. Tu Hector DO Work Phone: [facility] 10-25-2024 15:11-0400 SaO2% (BldA) [Mass fraction] 97 % Dr. Tu Hector DO Work Phone: [facility] 10-25-2024 15:11-0400 Systolic blood pressure 114 mm[Hg] Dr. Tu Hector DO Work Phone: [facility] 10-21-2024 16:39-0400 Body temperature 97.9 [degF] Dr. Tu Hector DO Work Phone: [facility] 10-21-2024 16:39-0400 Diastolic blood pressure 74 mm[Hg] Dr. Tu Hector DO Work Phone: [facility] 10-21-2024 16:39-0400 Heart rate 80 /min Dr. Tu Hector DO Work Phone: [facility] 10-21-2024 16:39-0400 Respiratory rate 16 /min Dr. Tu Hector DO Work Phone: [facility] 10-21-2024 16:39-0400 SaO2% (BldA) [Mass fraction] 98 % Dr. Tu Hector DO Work Phone: [facility] 10-21-2024 16:39-0400 Systolic blood pressure 111 mm[Hg] Dr. Tu Hector DO Work Phone: [facility] 10-21-2024 15:43-0400 Inhaled oxygen flow rate 2 L/min Dr. Tu Hector DO Work Phone: [facility] 10-21-2024 15:05-0400 Body height 160.[address] Tu Hector DO Work Phone: [facility] 10-21-2024 15:05-0400 Body mass index (BMI) [Ratio] 29.2 kg/m2 Dr. Tu Hector DO Work Phone: [facility] 10-21-2024 15:05-0400 Body weight 74.[address] Tu Hector DO Work Phone: [facility] 10-17-2024 11:07-0400 Body height 160 cm Rachel Johnson DO Work Phone: [facility] 10-17-2024 11:07-0400 Body mass index (BMI) [Ratio] 29.23 kg/m2 Rachel Durantodgrass DO Work Phone: [facility] 10-17-2024 11:07-0400 Body temperature 97.5 [degF] Rachel Johnson DO Work Phone: [facility] 10-17-2024 11:07-0400 Body weight 74.84 kg Rachel Johnson DO Work Phone: [facility] 10-17-2024 11:07-0400 Diastolic blood pressure 64 mm[Hg] Rachel Monk-Anh DO Work Phone: [facility] 10-17-2024 11:07-0400 Heart rate 81 /min Rachel Monk-Anh DO Work Phone: [facility] 10-17-2024 11:07-0400 Respiratory rate 18 /min Rachelniki Monk-Anh DO Work Phone: [facility] 10-17-2024 11:07-0400 SaO2% (BldA) [Mass fraction] 94 % Rachel Monk-Anh DO Work Phone: [facility] Comment on above: 10-17-2024 11:07-0400 Systolic blood pressure 122 mm[Hg] Rachel Monk-Anh DO Work Phone: [facility] 10-09-2024 16:30-0400 Diastolic blood pressure 72 mm[Hg] Cain Mejia MD Work Phone: [facility] 10-09-2024 16:30-0400 Heart rate 90 /min Cain Mejia MD Work Phone: [facility] 10-09-2024 16:30-0400 Respiratory rate 22 /min Cain Mejia MD Work Phone: [facility] 10-09-2024 16:30-0400 SaO2% (BldA) [Mass fraction] 92 % Cain Mejia MD Work Phone: [facility] 10-09-2024 16:30-0400 Systolic blood pressure 112 mm[Hg] Cain Mejia MD Work Phone: [facility] 10-09-2024 15:45-0400 Body temperature 97.59 [degF] Cain Mejia MD Work Phone: [facility] 10-09-2024 13:08-0400 Body height 160 cm Cain Mejia MD Work Phone: [facility] 10-09-2024 13:08-0400 Body mass index (BMI) [Ratio] 28.87 kg/m2 Cain Mejia MD Work Phone: [facility] 10-09-2024 13:08-0400 Body weight 73.94 kg Cain Mejia MD Work Phone: [facility] 10-06-2024 13:06-0400 Body temperature 98.8 [degF] Guanakito Moya MD Work Phone: [facility] 10-06-2024 13:06-0400 Diastolic blood pressure 75 mm[Hg] Guanakito Moya MD Work Phone: [facility] 10-06-2024 13:06-0400 Heart rate 122 /min Guanakito Moya MD Work Phone: [facility] 10-06-2024 13:06-0400 Respiratory rate 18 /min Guanakito Moya MD Work Phone: [facility] 10-06-2024 13:06-0400 SaO2% (BldA) [Mass fraction] 93 % Guanakito Moya MD Work Phone: [facility] 10-06-2024 13:06-0400 Systolic blood pressure 110 mm[Hg] Guanakito Moya MD Work Phone: [facility] 10-05-2024 20:12-0400 Body mass index (BMI) [Ratio] 27.44 kg/m2 Guanakito Moya MD Work Phone: [facility] 10-05-2024 20:12-0400 Body weight 70.26 kg Guanakito Moya MD Work Phone: [facility] 10-05-2024 18:22-0400 Body temperature 98.2 [degF] Dr. Tu Hector DO Work Phone: [facility] 10-05-2024 18:22-0400 Diastolic blood pressure 82 mm[Hg] Dr. Tu Hector DO Work Phone: [facility] 10-05-2024 18:22-0400 Heart rate 99 /min Dr. Tu Hector DO Work Phone: [facility] 10-05-2024 18:22-0400 Respiratory rate 20 /min Dr. Tu Hector DO Work Phone: [facility] 10-05-2024 18:22-0400 SaO2% (BldA) [Mass fraction] 93 % Dr. Tu Hector DO Work Phone: [facility] 10-05-2024 18:22-0400 Systolic blood pressure 116 mm[Hg] Dr. Tu Hector DO Work Phone: [facility] 10-05-2024 13:52-0400 Body height 160.[address] Tu Hector DO Work Phone: [facility] 10-05-2024 13:52-0400 Body mass index (BMI) [Ratio] 28.8 kg/m2 Dr. Tu Hector DO Work Phone: [facility] 10-05-2024 13:52-0400 Body weight 73.[address] Tu Hector DO Work Phone: [facility] 10-03-2024 13:56-0400 Body height 160 cm Wilfrido Luis DO Work Phone: [facility] 10-03-2024 13:56-0400 Body mass index (BMI) [Ratio] 28.87 kg/m2 Wilfrido Luis DO Work Phone: [facility] 10-03-2024 13:56-0400 Body weight 73.94 kg Wilfrido Luis DO Work Phone: [facility] 10-03-2024 13:56-0400 Diastolic blood pressure 62 mm[Hg] Wilfrido Luis DO Work Phone: [facility] 10-03-2024 13:56-0400 Heart rate 76 /min Wilfrido Luis DO Work Phone: [facility] 10-03-2024 13:56-0400 Systolic blood pressure 108 mm[Hg] Wilfrido Luis DO Work Phone: [facility] 10-03-2024 12:13-0400 Body height 160 cm Rachel Durantodgrass DO Work Phone: [facility] 10-03-2024 12:13-0400 Body mass index (BMI) [Ratio] 28.87 kg/m2 Rachel Durantodgrass DO Work Phone: [facility] 10-03-2024 12:13-0400 Body weight 73.94 kg Rachel Monk-Anh DO Work Phone: [facility] 10-03-2024 12:13-0400 Diastolic blood pressure 86 mm[Hg] Rachel Monk-Anh DO Work Phone: [facility] 10-03-2024 12:13-0400 Heart rate 98 /min Rachel Durantodgrass DO Work Phone: [facility] 10-03-2024 12:13-0400 Respiratory rate 18 /min Rachel Monk-Anh DO Work Phone: [facility] 10-03-2024 12:13-0400 SaO2% (BldA) [Mass fraction] 93 % Rachel Monk-Anh DO Work Phone: [facility] Comment on above: 10-03-2024 12:13-0400 Systolic blood pressure 127 mm[Hg] Rachel Monk-Anh DO Work Phone: [facility] 10-03-2024 11:10-0400 Diastolic blood pressure 89 mm[Hg] Silvio Fortune MD Work Phone: [facility] 10-03-2024 11:10-0400 Systolic blood pressure 141 mm[Hg] Silvio Fortune MD Work Phone: [facility] 10-03-2024 11:07-0400 Body mass index (BMI) [Ratio] 28.87 kg/m2 Silvio Fortune MD Work Phone: [facility] 10-03-2024 11:07-0400 Body weight 73.94 kg Silvio Fortune MD Work Phone: [facility] 10-03-2024 11:07-0400 Heart rate 95 /min Silvio Fortune MD Work Phone: [facility] 09-28-2024 10:00-0400 Heart rate 121 /min Dr. Tu Hector DO Work Phone: [facility] 09-28-2024 10:00-0400 SaO2% (BldA) [Mass fraction] 90 % Dr. Tu Hector DO Work Phone: [facility] 09-28-2024 09:50-0400 Body temperature 97.4 [degF] Dr. Tu Hector DO Work Phone: [facility] 09-28-2024 09:50-0400 Body weight 74.[address] Tu Hector DO Work Phone: [facility] 09-28-2024 09:50-0400 Diastolic blood pressure 84 mm[Hg] Dr. Tu Hector DO Work Phone: [facility] 09-28-2024 09:50-0400 Respiratory rate 20 /min Dr. Tu Hector DO Work Phone: [facility] 09-28-2024 09:50-0400 Systolic blood pressure 144 mm[Hg] Dr. Tu Hector DO Work Phone: [facility] 09-22-2024 08:07-0500 Body mass index (BMI) [Ratio] 28.8 kg/m2 Dr. Tu Hector DO Work Phone: [facility] 09-22-2024 08:07-0500 Body temperature 97.4 [degF] Dr. Tu Hector DO Work Phone: [facility] 09-22-2024 08:07-0500 Body weight 73.[address] Tu Hector DO Work Phone: [facility] 09-22-2024 08:07-0500 Diastolic blood pressure 72 mm[Hg] Dr. Tu Hector DO Work Phone: [facility] 09-22-2024 08:07-0500 Heart rate 100 /min Dr. Tu Hector DO Work Phone: [facility] 09-22-2024 08:07-0500 Respiratory rate 20 /min Dr. Tu Hector DO Work Phone: [facility] 09-22-2024 08:07-0500 SaO2% (BldA) [Mass fraction] 94 % Dr. Tu Hector DO Work Phone: [facility] 09-22-2024 08:07-0500 Systolic blood pressure 106 mm[Hg] Dr. Tu Hector DO Work Phone: [facility] 09-18-2024 13:18-0500 Body height 160.[address] Tu Hector DO Work Phone: [facility] 09-18-2024 13:18-0500 Body mass index (BMI) [Ratio] 29.8 kg/m2 Dr. Tu Hector DO Work Phone: [facility] 09-18-2024 13:18-0500 Body temperature 98.2 [degF] Dr. Tu Hector DO Work Phone: [facility] 09-18-2024 13:18-0500 Body weight 76.[address] Tu Hector DO Work Phone: [facility] 09-18-2024 13:18-0500 Diastolic blood pressure 85 mm[Hg] Dr. Tu Hector DO Work Phone: [facility] 09-18-2024 13:18-0500 Heart rate 86 /min Dr. Tu Hector DO Work Phone: [facility] 09-18-2024 13:18-0500 Respiratory rate 16 /min Dr. Tu Hector DO Work Phone: [facility] 09-18-2024 13:18-0500 SaO2% (BldA) [Mass fraction] 94 % Dr. Tu Hector DO Work Phone: [facility] 09-18-2024 13:18-0500 Systolic blood pressure 130 mm[Hg] Dr. Tu Hector DO Work Phone: [facility] 09-14-2024 00:30-0500 Body temperature 98.3 [degF] Dr. Tu Hector DO Work Phone: [facility] 09-14-2024 00:30-0500 Diastolic blood pressure 87 mm[Hg] Dr. Tu Hector DO Work Phone: [facility] 09-14-2024 00:30-0500 Heart rate 87 /min Dr. Tu Hector DO Work Phone: [facility] 09-14-2024 00:30-0500 Respiratory rate 19 /min Dr. Tu Hector DO Work Phone: [facility] 09-14-2024 00:30-0500 SaO2% (BldA) [Mass fraction] 92 % Dr. Tu Hector DO Work Phone: [facility] 09-14-2024 00:30-0500 Systolic blood pressure 137 mm[Hg] Dr. Tu Hector DO Work Phone: [facility] 09-13-2024 18:52-0500 Body mass index (BMI) [Ratio] 30.2 kg/m2 Dr. Tu Hector DO Work Phone: [facility] 09-13-2024 18:52-0500 Body weight 77.[address] Tu Hector DO Work Phone: [facility] 09-02-2024 13:16-0500 Body temperature 98.91 [degF] Dung Littlejohn MD Work Phone: [facility] 09-02-2024 13:16-0500 Body weight 77.7 kg Dung Littlejohn MD Work Phone: [facility] 09-02-2024 13:16-0500 Diastolic blood pressure 82 mm[Hg] Dung Littlejohn MD Work Phone: [facility] 09-02-2024 13:16-0500 Heart rate 90 /min Dung Littlejohn MD Work Phone: [facility] 09-02-2024 13:16-0500 Respiratory rate 18 /min Dung Littlejohn MD Work Phone: [facility] 09-02-2024 13:16-0500 SaO2% (BldA) [Mass fraction] 94 % Dung Littlejohn MD Work Phone: [facility] 09-02-2024 13:16-0500 Systolic blood pressure 134 mm[Hg] Dung Littlejohn MD Work Phone: [facility] 06-20-2024 11:00-0500 Body temperature 98.9 [degF] Dr. Tu Hector DO Work Phone: [facility] 06-20-2024 11:00-0500 Diastolic blood pressure 78 mm[Hg] Dr. Tu Hector DO Work Phone: [facility] 06-20-2024 11:00-0500 Heart rate 82 /min Dr. Tu Hector DO Work Phone: [facility] 06-20-2024 11:00-0500 Respiratory rate 16 /min Dr. Tu Hector DO Work Phone: [facility] 06-20-2024 11:00-0500 SaO2% (BldA) [Mass fraction] 99 % Dr. Tu Hector DO Work Phone: [facility] 06-20-2024 11:00-0500 Systolic blood pressure 115 mm[Hg] Dr. Tu Hector DO Work Phone: [facility] 06-20-2024 09:31-0500 Inhaled oxygen flow rate 1 L/min Dr. Tu Hector DO Work Phone: [facility] 06-20-2024 08:56-0500 Body mass index (BMI) [Ratio] 31.4 kg/m2 Dr. Tu Hector DO Work Phone: [facility] 06-20-2024 08:56-0500 Body weight 77.[address] Tu Hector DO Work Phone: [facility] 05-31-2024 16:45-0500 Body temperature 99.1 [degF] Sergio Athy PA-C Work Phone: [facility] 05-31-2024 16:45-0500 Body weight 75.4 kg Sergio Athy PA-C Work Phone: [facility] 05-31-2024 16:45-0500 Diastolic blood pressure 84 mm[Hg] Sergio Athy PA-C Work Phone: [facility] 05-31-2024 16:45-0500 Heart rate 94 /min Sergio Athy PA-C Work Phone: [facility] 05-31-2024 16:45-0500 Respiratory rate 18 /min Sergio Athy PA-C Work Phone: [facility] 05-31-2024 16:45-0500 SaO2% (BldA) [Mass fraction] 95 % Sergio Athy PA-C Work Phone: [facility] 05-31-2024 16:45-0500 Systolic blood pressure 140 mm[Hg] Sergio Athy PA-C Work Phone: [facility] 02-21-2024 14:34-0400 Body height 157.[address] SHANTEL SHI MD [facility] 02-21-2024 14:34-0400 Body temperature 98.42 [degF] DR SHANTEL SHI MD [facility] 02-21-2024 14:34-0400 Body weight 72.[address] SHANTEL SHI MD [facility] 02-21-2024 14:34-0400 Diastolic Blood Pressure Non-Invasive 94 mm[Hg] DR SHANTEL SHI MD [facility] 02-21-2024 14:34-0400 Heart rate 110 /min DR SHANTEL SHI MD [facility] 02-21-2024 14:34-0400 Respiratory rate 20 /min DR SHANTEL SHI MD [facility] 02-21-2024 14:34-0400 Systolic Blood Pressure Non-Invasive 148 mm[Hg] DR SHANTEL SHI MD [facility] 02-20-2024 15:18-0400 Blood Pressure Cuff Size CHRIS ALATORRE DO [facility] 02-20-2024 15:18-0400 Blood Pressure Location CHRIS METZKA DO [facility] 02-20-2024 15:18-0400 Blood Pressure Method CHRIS METZKA DO [facility] 02-20-2024 15:18-0400 Body temperature 98.24 [degF] CHRIS ALEJAESKA DO [facility] 02-20-2024 15:18-0400 Diastolic Blood Pressure Non-Invasive 87 mm[Hg] CHRIS METZKA DO [facility] 02-20-2024 15:18-0400 Heart rate 98 /min CHRIS ISAÍASKA DO [facility] 02-20-2024 15:18-0400 Respiratory rate 18 /min CHRIS ALATORRE DO [facility] 02-20-2024 15:18-0400 Systolic Blood Pressure Non-Invasive 134 mm[Hg] CHRIS ALATORRE DO [facility] 02-11-2024 07:53-0400 Diastolic Blood Pressure Non-Invasive 84 mm[Hg] DR SHANTEL SHI MD [facility] 02-11-2024 07:53-0400 Heart rate 80 /min DR SHANTEL SHI MD [facility] 02-11-2024 07:53-0400 Respiratory rate 18 /min DR SHANTEL SHI MD [facility] 02-11-2024 07:53-0400 Systolic Blood Pressure Non-Invasive 114 mm[Hg] DR SHANTEL SHI MD [facility] 02-11-2024 07:09-0400 Diastolic Blood Pressure Non-Invasive 59 mm[Hg] DR SHANTEL SHI MD [facility] 02-11-2024 07:09-0400 Heart rate 78 /min DR SHANTEL SHI MD [facility] 02-11-2024 07:09-0400 Respiratory rate 18 /min DR SHANTEL SHI MD [facility] 02-11-2024 07:09-0400 Systolic Blood Pressure Non-Invasive 115 mm[Hg] DR SHANTEL SHI MD [facility] 02-11-2024 06:57-0400 Heart rate 80 /min DR SHANTEL SHI MD [facility] 02-11-2024 06:57-0400 Respiratory rate 20 /min DR SHANTEL SHI MD [facility] 02-11-2024 06:34-0400 Body height 157.[address] SHANTEL SHI MD [facility] 02-11-2024 06:34-0400 Body temperature 99.32 [degF] DR SHANTEL SHI MD [facility] 02-11-2024 06:34-0400 Body weight [address] SHANTEL SHI MD [facility] 02-11-2024 06:34-0400 Diastolic Blood Pressure Non-Invasive 77 mm[Hg] DR SHANTEL SHI MD [facility] 02-11-2024 06:34-0400 Systolic Blood Pressure Non-Invasive 115 mm[Hg] DR SHANTEL SHI MD [facility] 02-04-2024 13:05-0400 Body temperature 99.86 [degF] DR SHANTEL SHI MD [facility] 02-04-2024 13:05-0400 Body weight [address] SHANTEL SHI MD [facility] 02-04-2024 13:05-0400 Diastolic Blood Pressure Non-Invasive 82 mm[Hg] DR SHANTEL SHI MD [facility] 02-04-2024 13:05-0400 Heart rate 78 /min DR SHANTEL SHI MD [facility] 02-04-2024 13:05-0400 Respiratory rate 18 /min DR SHANTEL SHI MD [facility] 02-04-2024 13:05-0400 Systolic Blood Pressure Non-Invasive 125 mm[Hg] DR SHANTEL SHI MD [facility] 01-28-2024 14:03-0400 Diastolic Blood Pressure Non-Invasive 87 mm[Hg] MAXINE TRIVEDI MD [facility] 01-28-2024 14:03-0400 Heart rate 86 /min MAXINE TRIVEDI MD [facility] 01-28-2024 14:03-0400 Respiratory rate 16 /min MAXINE TRIVEDI MD [facility] 01-28-2024 14:03-0400 Systolic Blood Pressure Non-Invasive 141 mm[Hg] MAXINE TRIVEDI MD [facility] 01-28-2024 12:45-0400 Body temperature 100.4 [degF] MAXINE TRIVEDI MD [facility] 01-28-2024 12:45-0400 Body weight 74.4 kg MAXINE TRIVEDI MD [facility] 01-28-2024 12:45-0400 Diastolic Blood Pressure Non-Invasive 93 mm[Hg] MAXINE TRIVEDI MD [facility] 01-28-2024 12:45-0400 Heart rate 105 /min MAXINE TRIVEDI MD [facility] 01-28-2024 12:45-0400 Respiratory rate 16 /min MAXINE TRIVEDI MD [facility] 01-28-2024 12:45-0400 Systolic Blood Pressure Non-Invasive 151 mm[Hg] MAXINE TRIVEDI MD [facility] 07-13-2023 17:41-0500 Heart rate 82 /min [facility] 07-13-2023 17:41-0500 Respiratory rate 16 /min [facility] 07-13-2023 15:22-0500 Body height 157.48 cm [facility] 07-13-2023 15:22-0500 Body mass index (BMI) [Ratio] 30.7 kg/m2 [facility] 07-13-2023 15:22-0500 Body temperature 97.8 [degF] [facility] 07-13-2023 15:22-0500 Body weight 76.29 kg [facility] 07-13-2023 15:22-0500 Diastolic blood pressure 91 mm[Hg] [facility] 07-13-2023 15:22-0500 SaO2% (BldA) [Mass fraction] 96 % [facility] 07-13-2023 15:22-0500 Systolic blood pressure 148 mm[Hg] [facility] 01-12-2023 10:24-0400 Body height 160 cm Oz Salazar MD Work Phone: [facility] 01-12-2023 10:24-0400 Body mass index (BMI) [Ratio] 28.87 kg/m2 Oz Salazar MD Work Phone: [facility] 01-12-2023 10:24-0400 Body weight 73.94 kg Oz Salazar MD Work Phone: [facility] 01-12-2023 10:24-0400 Diastolic blood pressure 75 mm[Hg] Oz Salazar MD Work Phone: [facility] 01-12-2023 10:24-0400 Heart rate 77 /min Oz Salazar MD Work Phone: [facility] 01-12-2023 10:24-0400 Systolic blood pressure 120 mm[Hg] Oz Salazar MD Work Phone: [facility] 12-20-2022 13:42-[address] LOKI PETERS DO [facility] 12-20-2022 13:42-0400 Body temperature 99.32 [degF] DR LOKI PETERS DO [facility] 12-20-2022 13:42-0400 Diastolic Blood Pressure Non-Invasive [address] LOKI PETERS DO [facility] 12-20-2022 13:42-0400 Heart rate 99 /min DR LOKI PETERS DO [facility] 12-20-2022 13:42-0400 Respiratory rate 16 /min DR LOKI PETERS DO [facility] 12-20-2022 13:42-0400 Systolic Blood Pressure Non-Invasive [address] LOKI PETERS DO [facility] 12-20-2022 12:55-0400 Body temperature 100.4 [degF] Jose F Nancy [employer] Work Phone: [facility] 12-20-2022 12:55-0400 Body weight 71.49 kg Jose F Cruz [employer] Work Phone: [facility] 12-20-2022 12:55-0400 Diastolic blood pressure 84 mm[Hg] Jose F Nancy [employer] Work Phone: [facility] 12-20-2022 12:55-0400 Heart rate 115 /min Jose F Cruz [employer] Work Phone: [facility] 12-20-2022 12:55-0400 Respiratory rate 21 /min Jose F Cruz [employer] Work Phone: [facility] 12-20-2022 12:55-0400 SaO2% (BldA) [Mass fraction] 97 % Jose F Cruz [employer] Work Phone: [facility] 12-20-2022 12:55-0400 Systolic blood pressure 108 mm[Hg] Jose F Cruz [employer] Work Phone: [facility] Encounters Encounter Date Encounter Type Care Provider Facility Start: 02-11-2025 Emergency department patient visit Tay Pearsonmary Facility:[facility] Start: 01-28-2025 End: 01-28-2025 Emergency department patient visit Dr. Tu Hector DO Work Phone: -Emergency Department Work Phone: Start: 01-23-[address] Ranjith Chance MD -[facility] Start: 01-23-2025 End: 01-23-[address] Alis Chance MD -[facility] Work Phone: Start: 01-23-2025 End: 01-23-[address] Tu Hector DO Work Phone: -[facility] Start: 01-16-2025 End: 01-16-[address] Tu Hector DO Work Phone: -Cat Scan [facility] Start: 01-16-2025 End: 01-16-2025 Patient encounter procedure Anayeli Win [employer] -Cat Scan [facility] Work Phone: Start: 01-16-2025 End: 01-16-2025 ambulatory Tu Hector Facility:[facility] Start: 01-04-[address] Ranjith Chance MD -[facility] Start: 01-02-[address] Ranjith Chance MD -[facility] Start: 01-02-2025 End: 01-02-[address] Alis Chance MD -[facility] Work Phone: Start: 01-02-2025 End: 01-02-[address] Tu Hector DO Work Phone: [facility] Work Phone: Start: 12-12-2024 End: 12-12-2024 Patient encounter procedure Anayeli ARNETT -[facility] Work Phone: Start: 12-12-2024 End: 12-12-[address] Tu Hector DO Work Phone: [facility] Work Phone: Start: 12-12-[address] Ranjith Chance MD -[facility] Start: 11-24-2024 End: 11-24-2024 Emergency department patient visit ENID FORMAN MD [facility] Start: 11-21-2024 End: 11-21-[address] Alis Chance MD [facility] Work Phone: Start: 11-21-2024 End: 11-21-2024 ambulatory Tu Hector Facility[place] Start: 11-17-2024 End: 11-17-[address] Kilo Morse MD [facility] Work Phone: Start: 11-17-2024 End: 11-17-2024 ambulatory Tu Hector Facility[place] Start: 11-16-2024 ambulatory Omar Keita lity:[facility] Start: 11-16-2024 Non-patient / Non-visit Dr. Zhanna Hicks MD -[facility] Start: 11-16-2024 End: 11-16-2024 Admission to same day surgery center Dr. Omar Hicks MD [facility] Start: 11-16-2024 End: 11-16-2024 ambulatory Omar Hicks Facility:[facility] Start: 11-09-2024 End: 11-09-2024 [facility] Start: 11-09-2024 End: 11-09-2024 ambulatory Tu Hector Facility:[facility] Start: 11-01-2024 End: 11-01-2024 Telephone encounter Wilfrido Simsbeliamayra Work Phone: [facility] Comment on above: Other Start: 10-31-2024 End: 10-31-2024 Patient encounter procedure Anayeli BillAudelia [employer] -[facility] Work Phone: Start: 10-31-2024 End: 10-31-2024 ambulatory Tu Hector Facility:[facility] Start: 10-27-2024 End: 10-27-[address] Omar Hicks MD -[facility] Work Phone: Start: 10-27-2024 End: 10-27-2024 ambulatory Omar Hicks Facility:[facility] Start: 10-26-2024 End: 10-26-2024 Patient encounter procedure Anayeli BillAudelia NP-C -[facility] Work Phone: Start: 10-26-2024 End: 10-26-2024 ambulatory Tu Hector Facility:[facility] Start: 10-26-2024 End: 10-26-2024 Office outpatient new 60 minutes Joselyn Tucker MD Work Phone: [facility] Comment on above: Multinodular goiter (nontoxic) (Primary Dx); Stage 3a chronic kidney disease (HCC) Start: 10-26-2024 End: 10-26-2024 ambulatory JOSELYN [facility] Start: 10-25-2024 End: 10-25-[address] Wilfrido Karimi MD -[facility] Work Phone: Start: 10-25-2024 End: 10-25-2024 ambulatory Tu Hector Facility:[facility] Start: 10-24-2024 End: 11-05-2024 Telephone encounter Silvio Fortune MD Work Phone: [facility] Thoracic [facility] Comment on above: Malignant small cell cancer (CMS/HCC) (HCC) (Primary Dx) Start: 10-24-2024 End: 10-24-2024 Office outpatient visit 10 minutes Silvio Fortune MD Work Phone: [facility] [place] Comment on above: Malignant small cell cancer (CMS/HCC) (HCC) (Primary Dx); Adenopathy; Right atrial mass; Pleural effusion Start: 10-24-2024 End: 10-24-2024 [facility] Start: 10-23-2024 End: 10-24-2024 Telephone encounter Scot Sandy Hailyaudra DO Work Phone: [facility] [place] Start: 10-21-2024 End: 10-21-2024 Emergency department patient visit Dr. Tu Hector DO Work Phone: -Emergency Department Work Phone: Start: 10-20-2024 End: 10-20-2024 Subsequent hospital visit by physician Silvio Fortune MD Work Phone: [facility] PET Comment on above: Pleural mass Start: 10-20-2024 End: 10-20-2024 ambulatory [facility] Start: 10-19-2024 End: 10-19-2024 Orders Only Rachel Johnson DO Work Phone: [facility] [place] Comment on above: Small cell carcinoma of left lung, unspecified part of lung (HCC) (Primary Dx) Start: 10-17-2024 End: 10-17-2024 Documentation procedure Aixa Roche [facility] Ana Maria g Nodule [facility] [place] Comment on above: Tumor Board Recommen dations (Thoracic Tumor Board Recommendations 10/17/24) Start: 10-17-2024 End: 10-19-2024 Telephone encounter Aixa Roche [facility] Lung N[facility] Comment on above: Care Coordination (E xpedite PET scan and send records to med onc in [place] ) Start: 10-17-2024 End: 10-17-2024 Office outpatient visit 25 minutes Rachel Johnson DO Work Phone: [facility] [place] Comment on above: Small cell carcinoma of left lung, unspecified part of lung (HCC) (Primary Dx); Chronic obstructive pulmonary disease, unspecified COPD type (HCC); 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 Start: 10-17-2024 End: 10-17-2024 ambulatory RACHEL JOHNSON [facility] Start: 10-17-2024 End: 10-17-2024 Subsequent hospital visit by physician Silvio Fortune MD Work Phone: [facility] MRI Comment on above: Pleural mass Start: 10-17-2024 End: 10-17-2024 [facility] Start: 10-10-2024 End: 10-10-[address] Tu Hector DO -Cat Scan, [facility] Work Phone: Start: 10-10-2024 End: 10-10-[address] Tu Hector DO Work Phone: [facility] Work Phone: Start: 10-09-2024 End: 10-10-2024 ambulatory CAIN MEJIA [facility] Start: 10-09-2024 End: 10-09-2024 Subsequent hospital visit by physician Cain Mejia MD Work Phone: [facility] MAIN OR Comment on above: Hilar mass; Adenopathy; Lung mass Start: 10-06-[address] JANNETH SLATER MD Facility:A Start: 10-05-2024 End: 10-06-2024 ambulatory PCP DARRELL [facility] Start: 10-05-2024 End: 10-06-2024 Subsequent hospital visit by physician Guanakito Rodriguez MD Work Phone: [facility] Cardiac Post Intervention Progressive [facility] PCU 4W Comment on above: Pleural effusion (Pr imary Dx); Lung mass Start: 10-05-2024 End: 10-05-2024 Telephone encounter Cain Mejia MD Work Phone: [facility] [place] Comment on above: Care Coordination Start: 10-05-2024 End: 10-05-2024 Emergency department patient visit Dr. Tu Hector DO Work Phone: -Emergency Department Work Phone: Start: 10-03-2024 End: 10-03-2024 Office outpatient new 45 minutes Wilfrido Luis DO Work Phone: [facility] [address] Comment on above: Pericardial effusion Start: 10-03-2024 End: 10-03-2024 Telephone encounter Aixa Roche [facility] [address] Comment on above: Care Coordination (L ehsan Nodule Follow up / Expedite LNC and Cardiology eval / PFT From [facility] ) Start: 10-03-2024 End: 10-03-2024 [facility] Start: 10-03-2024 End: 10-03-2024 Office outpatient new 45 minutes Rachel Johnson DO Work Phone: [facility] [place] Comment on above: Lung mass (Primary D x); Pulmonary emphysema, unspecified emphysema type (HCC); Adenopathy; Pericardial effusion; Chronic obstructive pulmonary disease, unspecified COPD type (HCC); History of tobacco use Start: 10-03-2024 End: 10-03-2024 ambulatory RACHEL NBAANH [facility] Start: 10-03-2024 End: 10-03-2024 Office outpatient new 60 minutes Silvio Fortune MD Work Phone: [facility] [place] Comment on above: Hilar mass (Primary Dx); Right atrial mass Start: 10-03-2024 End: 10-03-2024 ambulatory SILVIO FORTUNE [facility] Start: 09-29-2024 ambulatory Jose Perdomo Facility:[facility] Start: 09-28-2024 End: 09-28-2024 Patient encounter procedure Rhiannon Georges BOARD OF DIRECTORS-C -[facility] Work Phone: Start: 09-28-2024 End: 09-28-2024 ambulatory Tu Hector Facility:[facility] Start: 09-25-2024 End: 09-25-2024 ambulatory TU HECTOR DO Facility:[facility] Start: 09-25-2024 Non-patient / Non-visit Dr. Jose joshi DO -[facility] Start: 09-25-2024 End: 09-25-[address] Tu Hector DO Work Phone: [facility] Work Phone: Start: 09-25-2024 End: 09-25-2024 Patient encounter procedure Rhiannon Georges NP-C -Pulmonary Services/Neurology Work Phone: Start: 09-25-2024 End: 09-25-2024 ambulatory Rhiannon Georges NP Facility:[facility] Start: 09-22-2024 End: 09-22-[address] Tu Hector DO Work Phone: [facility] Work Phone: Start: 09-22-2024 End: 09-22-2024 Patient encounter procedure Rhiannon Georges NP-C -Laboratory Work Phone: Start: 09-22-2024 End: 09-22-2024 Patient encounter procedure Rhiannon Georges NP-C -[facility] Work Phone: Start: 09-22-2024 End: 09-22-2024 ambulatory Tu Hector [facility] Start: 09-21-2024 End: 09-22-2024 ambulatory Tu Hector Facility:[facility] Start: 09-19-2024 End: 09-19-2024 ambulatory TU HECTOR DO Facility:[facility] Start: 09-19-2024 End: 09-19-2024 Patient encounter procedure JOSELIN NIETO [facility]-NURSING FACULTY [facility] Start: 09-18-[address] Ranjith Chance MD -[facility] [facility] Start: 09-18-2024 End: 09-18-[address] Alis Cahnce MD -[place] [facility] Work Phone: Start: 09-18-2024 End: 09-18-2024 ambulatory Chris Maria Facility:[facility] Start: 09-13-2024 End: 09-14-2024 Emergency department patient visit Dr. Chris Maria MD -Emergency Department Work Phone: Start: 09-13-2024 End: 09-17-2024 ambulatory TU HECTOR DO Facility[facility] Start: 09-13-2024 End: 09-17-2024 Outreach Lab JOSELIN MAST [facility]NURSING [facility]AC[facility]Y [facility] Start: 09-13-2024 End: 09-13-2024 ambulatory JOSELIN MAST [facility] Facility:[facility] Start: 09-13-2024 End: 09-13-2024 Patient encounter procedure JOSELIN MAST [employer]NURSING FACULTY [facility] Start: 09-03-2024 End: 09-03-2024 Follow-up encounter Renetta Villalobos APRN.NURSING FACULTY Work Phone: [facility] Start: 09-02-2024 End: 09-02-2024 ambulatory [facility] Facility:[facility] Start: 09-02-2024 End: 09-02-2024 Patient encounter procedure Dung Littlejohn MD Work Phone: [facility] Comment on above: COPD with exacerbati on (HCC) (Primary Dx); URI, acute Start: 06-20-2024 End: 06-20-2024 Emergency department patient visit Dr. Anh Irene DO -Emergency Department Work Phone: Start: 05-31-2024 End: 05-31-2024 Subsequent hospital visit by physician [facility] Work Phone: Radiology Comment on above: Acute cough [R05.1] Start: 05-31-2024 End: 05-31-2024 ambulatory SERGIO R ATHY Facility:[facility] Start: 05-31-2024 End: 05-31-2024 Patient encounter procedure Sergio Mohr PA-C Work Phone: [facility] Comment on above: Infiltrate of lower lobe of left lung present on imaging study (Primary Dx) Start: 02-21-2024 End: 02-21-2024 Emergency department patient visit DR SHANTEL SHI MD [facility] Start: 02-21-2024 ambulatory CHRIS ALATORRE DO Facili ty:B Start: 02-20-2024 End: 02-20-2024 Emergency department patient visit CHRIS ALATORRE DO [facility] Start: 02-11-2024 End: 02-11-2024 Emergency department patient visit DR SHANTEL SHI MD [facility] Start: 02-04-2024 End: 02-04-2024 Emergency department patient visit DR SHANTEL SHI MD [facility] Start: 01-28-2024 End: 01-28-2024 Emergency department patient visit MAXINE TRIVEDI MD [facility] Start: 11-25-2023 End: 11-25-2023 ambulatory TU HECTOR DO Facility:B Start: 11-25-2023 End: 11-25-2023 Patient encounter procedure TU HECTOR DO [facility] Start: 10-28-2023 End: 10-28-2023 ambulatory [facility] Work Phone: Start: 10-28-2023 End: 10-28-2023 Patient encounter procedure [facility] Work Phone: Start: 09-29-2023 End: 10-03-2023 ambulatory TU HECTOR DO Facility:[facility] Start: 09-29-2023 End: 10-03-2023 Outreach Lab TU HECTOR DO [facility] Start: 07-13-2023 End: 07-13-2023 Emergency department patient visit [facility]-Emergency Department Work Phone: Start: 03-09-2023 End: 03-13-2023 ambulatory TU HECTOR DO Facility:[facility] Start: 03-09-2023 End: 03-13-2023 Outreach Lab TU HECTOR DO [facility] Start: 01-18-2023 ambulatory Marty Daily PA-C Work Phone: [facility] Start: 01-15-2023 Telephone encounter Oz davis MD Work Phone: [facility] Start: 01-12-2023 End: 01-12-2023 Office outpatient new 30 minutes Oz Salazar MD Work Phone: [facility] Comment on above: Elbow mass, left (Pr imary Dx) Start: 12-30-2022 End: 12-30-2022 Patient encounter procedure TU HECTOR DO [facility] Start: 12-20-2022 End: 12-20-2022 Emergency department patient visit DR LOKI PETERS DO [facility] Start: 12-20-2022 End: 12-20-2022 Patient encounter procedure Jose F Cruz CLAY PUDDLER.NURSING FACULTY Work Phone: [facility] Comment on above: Cat bite, initial en counter (Primary Dx) Start: 10-30-2021 End: 10-30-2021 Patient encounter procedure CHANDLER WEBER CLAY [facility]ER-NURSING FACULTY [facility] Start: 10-24-2021 End: 10-24-2021 Patient encounter procedure TU HECTOR DO [facility] Start: 10-23-2021 End: 10-23-2021 Patient encounter procedure TU HECTOR DO [facility] Start: 01-14-2021 End: 01-14-2021 Subsequent hospital visit by physician Xr [facility] Work Phone: Radiology Comment on above: Cough [R05] Start: 12-17-2020 End: 12-17-2020 Subsequent hospital visit by physician Xr [facility] Work Phone: Radiology Comment on above: Cough [R05] Procedures Date Procedure Procedure Detail Performing Clinician Start: 01-28-2025 Blood disorder - ini tial assessment Dr. Tu Hector DO Work Phone: Start: 01-28-[address] Tu Hector DO Work Phone: Start: 01-28-2025 Urnls dip stick/tabl et reagent auto microscopy Dr. Tu Hector DO Work Phone: Start: 01-28-2025 Computed tomography of abdomen and pelvis with intravenous contrast Dr. Tu Hector DO Work Phone: Start: 01-28-2025 CT angiography of ch est with contrast Dr. Tu Hector DO Work Phone: Start: 01-23-[address] Tu [...] Work Phone: Start: 06-20-[address] Maldonado in [place] DO Work Phone: Start: 06-20-2024 SARS-CoV-2, Influenz a & RSV (PCR) Dr. Tu Hector DO Work Phone: Start: 06-20-2024 Plain chest X-ray Dr. Jackelyn Hector DO Work Phone: Start: 05-31-2024 Radiologic exam ches t 2 views Sergio QUEENC Work Phone: Start: 10-28-2023 Plain x-ray of pelvi s and lower extremity Start: 10-28-2023 Radiologic examinati on of knee Start: 01-14-2021 Radiologic exam ches t 2 views Silvio Perez APRN.NURSING FACULTY Work Phone: Start: 12-17-2020 Radiologic exam ches t 2 views Renetta Villalobos APRN.NURSING FACULTY Work Phone: Start: 07-19-2012 Total knee replacement [...] above: Right Fracture of foot (disorder) TU HECTOR DO Comment on above: Right Fracture of tibia AN D fibula (disorder) TU HECTOR DO Comment on above: Left Glenohumeral joint structure (body structure) TU HECTOR DO Comment on above: Left, ligament repai r Ligation of fallopian tube K DOMINIC HECTOR DO Plan of Treatment Date Care Activity Detail Author Start: 01-27-2034 DTaP/Tdap/Td Vaccines (3 - Td or Tdap) DTaP/Tdap/Td Vaccines (3 - Td or Tdap) [facility] Start: 01-27-2034 Urine microalbumin profile DTaP,Tdap,Td Vaccine (3 - Td or Tdap) [facility] Start: 12-15-2026 RSV Vaccine (1 - 1-dose 75+ series) RSV Vaccine (1 - 1-dose 75+ series) [facility] Start: 10-29-2025 End: 10-29-2025 Patient encounter procedure 10/29/2025 11:00 AM EDT Office Visit [facility] - [address] [place] [id number] Joselyn Tucker MD [address] [place] [address] [facility] Start: 03-19-2025 Influenza vaccination Influenza Vaccine (Season Ended) [facility] Start: 01-28-2025 [facility] Start: 01-23-2025 [facility] Start: 01-16-2025 Venous catheter care management [facility] Start: 01-02-2025 [facility] Start: 12-12-2024 [facility] Start: 11-16-2024 Patient discharge [facility] Start: 11-16-2024 Anesthesia access central venous circulation ANESTH VASCULAR ACCESS [facility] Start: 11-16-2024 Insj tunneled ctr vad w/subq port age 6 yr/> INSERT TUNNELED CV CATH [facility] Start: 11-15-2024 End: 11-15-2024 Patient encounter procedure 11/15/2024 4:00 PM EDT Office Visit [facility] [address] [place] [phone] Wilfrido Luis DO [address] [place], [place] [id number] [facility] Start: 10-31-2024 Patient referral [facility] Work Phone: Start: 10-31-2024 Venous catheter care management [facility] Start: 10-30-2024 End: 10-30-2024 Patient encounter procedure 10/30/2024 3:00 PM EDT Appointment [facility] [address] [place] [phone] Silvio Fortune MD [address] [facility] [place] [address] [facility] Start: 10-21-2024 [facility] Start: 10-21-2024 [facility] Start: 10-20-2024 End: 10-20-2024 Patient encounter procedure 10/20/2024 2:00 PM EDT Appointment [facility] [address] [facility] [place] [phone] Silvio Fortune MD [address] [facility] [place] [address] [facility] Start: 10-17-2024 End: 10-17-2024 Patient encounter procedure [facility] Start: 10-17-2024 Subsequent hospital visit by physician 10/17/2024 9:00 AM EDT Hospital Encounter [facility] [address] [place] [address] Silvio Fortune MD [address] [facility] [place], [place] [phone] [facility] Start: 10-09-2024 End: 10-09-2024 Admission to same day surgery center 10/09/2024 1:30 PM EDT - 10/09/2024 3:[address] [facility] Endoscopy [address] [place] [address] Cain Mejia MD [address] [place] [address] [address] [place], [place] [phone] ENDOBRONCHIAL ULTRASOUND WITH TRANSBRONCHIAL NEEDLE ASPIRATION. POSSIBLE ENDOBRONCHIAL BIOPSIES, NEEDLE ASPIRATION, AND BRUSHINGS. [42174 (CPT )] [facility] Endoscopy Comment on above: ENDOBRONCHIAL ULTRASOUND WITH TRANSBRONC HIAL NEEDLE ASPIRATION. POSSIBLE ENDOBRONCHIAL BIOPSIES, NEEDLE ASPIRATION, AND BRUSHINGS. [57600 (CPT )] Start: 10-09-2024 End: 10-09-2024 [facility] ebus guided sampl 3/> node station/strux BRONCHOSCOPY, RIGID OR FLEXIBLE, WITH ENDOBRONCHIAL ULTRASOUND Hilar mass Adenopathy Lung mass 10/09/2024 1:[address] [facility] Gastroenterology Start: 10-09-2024 Subsequent hospital visit by physician 10/09/2024 1:30 PM EDT Hospital Encounter [facility] [address] [place] [address] Cain Mejia MD [address] [place] [address] [facility] Endoscopy Start: 10-05-2024 [facility] Start: 10-05-2024 End: 10-05-2024 [facility] Start: 10-05-2024 Bacteria identified in Blood by Culture Blood Culture [facility] Start: 09-14-2024 [facility] Start: 09-13-2024 [facility] Start: 09-13-2024 [facility] Start: 07-19-2024 Advance Directive Discussion Advance Directive Discussion [facility] Start: 07-19-2024 Medicare Advantage Annual Wellness Visit Medicare Advantage Annual Wellness Visit [facility] Start: 06-20-2024 [facility] Start: 03-19-2024 Covid-19 Vaccine ( season) Covid-19 Vaccine ( season) [facility] Start: 03-19-2024 Influenza vaccination Influenza Vaccine (#1) [facility] Start: 07-19-2023 Advance Directive Discussion Advance Directive Discussion [facility] Start: 03-19-2023 Influenza vaccination [facility] Start: 07-19-2022 ADVANCE DIRECTIVE DISCUSSION ADVANCE DIRECTIVE DISCUSSION [facility] Start: 07-19-2022 DEPRESSION ASSESSMENT DEPRESSION ASSESSMENT [facility] Start: 12-15-2016 BONE DENSITY BONE DENSITY [facility] Start: 12-15-2016 Pneumococcal Vaccine: 65+ (1 of 1 - PCV) Pneumococcal Vaccine: 65+ (1 of 1 - PCV) [facility] Start: 12-15-2016 PNEUMOCOCCAL: 65+ (1 - PCV) PNEUMOCOCCAL: 65+ (1 - PCV) [facility] Start: 12-15-2016 Screening for osteoporosis Bone Density Screening [facility] Start: 2011 RSV Immunization for Adults (1 - Risk 60-74 years 1-dose series) RSV Immunization for Adults (1 - Risk 60-74 years 1-dose series) [facility] Start: 12-15-2001 Pneumococcal Vaccine: 50+ (1 of 1 - PCV) Pneumococcal Vaccine: 50+ (1 of 1 - PCV) [facility] Start: 12-15-2001 SHINGRIX VACCINE (1 of 2) SHINGRIX VACCINE (1 of 2) [facility] Start: 12-15-2001 Zoster Vaccines (1 of 2) Zoster Vaccines (1 of 2) [facility] Start: 12-15-1996 COLOGUARD (FIT-DNA) COLOGUARD (FIT-DNA) [facility] Start: 12-15-1996 Colonoscopy COLONOSCOPY [facility] Start: 12-15-1996 COLORECTAL CANCER SCREENING COLORECTAL CANCER SCREENING [facility] Start: 12-15-[address] COLONOGRAPHY [facility] Start: 12-15-1996 DIABETES SCREEN DIABETES SCREEN [facility] Start: 12-15-1996 Diabetes Screening Diabetes Screening [facility] Start: 12-15-1996 FECAL OCCULT BLOOD FECAL OCCULT BLOOD [facility] Start: 12-15-1996 Lipid panel Lipid Screening [facility] Start: 12-15-1996 LIPID SCREEN LIPID SCREEN [facility] Start: 12-15-1996 Screening for malignant neoplasm of colon [facility] Start: 12-15-1996 SIGMOIDOSCOPY SIGMOIDOSCOPY [facility] Start: 1991 Mammography MAMMOGRAM [facility] Start: 1991 Screening for malignant neoplasm of breast [facility] Start: 12-15-1970 DTaP/Tdap/Td Vaccines (1 - Tdap) DTaP/Tdap/Td Vaccines (1 - Tdap) [facility] Start: 12-15-1970 Pneumococcal Vaccine: 50+ Years (1 of 2 - PCV) Pneumococcal Vaccine: 50+ Years (1 of 2 - PCV) [facility] Start: 12-15-1970 Urine microalbumin profile [facility] Start: 12-15-1969 Anxiety Screening Anxiety Screening [facility] Start: 12-15-1969 Depression Screening Depression Screening [facility] Start: 12-15-1969 Diabetes mellitus screening Diabetes Screening [facility] Start: 12-15-1969 HEPATITIS C SCREENING HEPATITIS C SCREENING [facility] Start: 12-15-1969 Hepatitis C screening Hepatitis C Screening [facility] Start: 1963 Depression Monitoring Depression Monitoring [facility] Start: 1963 Depression Screening Depression Screening [facility] Start: 12-15-1957 Pneumococcal Vaccine: 65+ Years (1 - PCV) Pneumococcal Vaccine: 65+ Years (1 - PCV) [facility] Start: 06-17-1952 COVID-19 VACCINE (#1) COVID-19 VACCINE (#1) [facility] Start: 1951 Lipid panel Lipid Panel [facility] Start: 1951 Screening for malignant neoplasm of colon [facility] Start: 1951 Screening for osteoporosis Bone Density Scan [facility] Start: 1951 Thyroid Nodule Ultrasound Thyroid Nodule Ultrasound [facility] End: 10-06-2024 Aerobic and Anaerobic Culture with Stain Aerobic and Anaerobic Culture with Stain Microbiology Routine Once (Lab) for 1 Occurrences starting 10/06/2024 until 10/06/2024 [facility] Work Phone: Comment on above: Once (Lab) for 1 Occurrences starting until 10/06/2024 Bacteria identified in Lower respiratory specimen by Aerobe culture Respiratory culture and Stain Microbiology Routine Hilar mass Adenopathy Lung mass 10/09/2024 3:34 PM EDT [facility] End: 10-06-2024 Bacteria identified in Unspecified specimen by Aerobe culture Culture, Aerobic Bacteria with Gram Stain Microbiology Timed Once for 1 Occurrences starting 10/06/2024 until 10/06/2024 [facility] Comment on above: Once for 1 Occurrences starting 10/07/19 until 10/06/2024 End: 10-06-2024 Bacteria identified in Unspecified specimen by Anaerobe culture Anaerobic culture Microbiology Timed Once for 1 Occurrences starting 10/06/2024 until 10/06/2024 [facility] Comment on above: Once for 1 Occurrences starting 10/07/19 until 10/06/2024 CBC W Auto Different ial panel - Blood [facility] CBC W Auto Different ial panel - Blood [facility] CBC W Auto Different ial panel - Blood [facility] metabo lic 1999 panel - Serum or Plasma [facility] metabo lic 1999 panel - Serum or Plasma [facility] metabo lic 1999 panel - Serum or Plasma [facility] Cortisol [Mass/volum e] in Serum or Plasma [facility] COVID & INFLUENZA A/ B & RSV PCR, ROUTINE COVID & INFLUENZA A/B & RSV PCR, ROUTINE Microbiology Routine COPD with exacerbation (HCC) URI, acute Ordered: 09/02/2024 [facility] Work Phone: Comment on above: Ordered: 09/02/2024 CT Abdomen and Pelvi s W contrast IV [facility] Fine needle aspiration [facility] Comment on above: Release Upon Ordering for 1 Occurrences starting 10/09/2024, 1 completed Folate [Moles/volume ] in Serum or Plasma [facility] Fungus identified in Unspecified specimen by Culture [facility] Comment on above: Release Upon Ordering for 1 Occurrences starting 10/09/2024 Fungus identified in Unspecified specimen by Fungus stain [facility] [facility] Comment on above: Release Upon Ordering for 1 Occurrences starting 10/09/2024 Magnesium measurement [facility] End: 10-17-2024 MR Brain WO and W contrast IV [facility] Work Phone: Comment on above: Once for 1 Occurrences starting 10/18/19 until 10/17/2024 Mycobacterium sp identified in Unspecified specimen by Organism specific culture [facility] Comment on above: Release Upon Ordering for 1 Occurrences starting 10/09/2024 End: 10-06-2024 Non-gynecologic cytology Non-gynecologic cytology Pathology and Cytology Routine Once (Lab) for 1 Occurrences starting 10/06/2024 until 10/06/2024 [facility] Once (Lab) for 1 Occurrences starting until 10/06/2024 Non-Gynecologic Cytology [facility] Work Phone: Comment on above: Release Upon Ordering for 1 Occurrences starting 10/09/2024 Patient Education [facility] Work Phone: Patient referral [facility] Work Phone: End: 10-20-2024 PET+CT Bone from skull base to mid-thigh W 18F-NaF IV [facility] Work Phone: Comment on above: Once for 1 Occurrences starting 10/21/19 until 10/20/2024 Serum inorganic phosphate measurement [facility] T4 free measurement [facility] Thyroid stimulating hormone measurement [facility] Tissue exam [facility] Comment on above: Release Upon Ordering for 1 Occurrences starting 10/09/2024 Troponin T.cardiac [Mass/volume] in Serum or Plasma by High sensitivity method [facility] US Heart limited [facility] [place] 6 [place] [facility] [place] Immunization Date Immunization Notes Care Provider Fa [facility] 01-28-2024 tetanus toxoid, reduced diphtheria toxoid, and acellular pertussis vaccine, adsorbed MAXINE TRIVEDI MD [facility] 07-13-2023 tetanus toxoid, reduced diphtheria toxoid, and acellular pertussis vaccine, adsorbed [facility] 06-23-2006 influenza virus vaccine, unspecified formulation Jose F Cruz [facility] Work Phone: [facility] Work Phone: 04-24-2003 influenza virus vaccine, unspecified formulation Jose F Cruz [facility] [facility] Work Phone: [facility] Work Phone: Payers Date Payer Category Payer Medicare O [facility] MEDICARE ADVANT[facility] [id number] 2024 Self-pay [id number] 2021 Medicare [employer] MEDICARE ADVANTAGE DONALD GARCIA [id number] 2021-Present [id number] [place] [address] Medicare HMO [id number] 2019 Medicare (Managed Care) DON[employer]D [employer] ADVANTAGE HMO [id number] 2019 Unknown [id number] 1.13.159. 2.7.3.751775.315 2019 Medicare [id number] 2016 Private Health Insurance [facility] [id number] 1950 Unknown [id number] 2.16840.1.089580.3.579. 2. 1950 Unknown [id number] 2.16840.1.401909.3.579. 2 1950 Unknown [id number] 2.16840.1.422952.3.579. 2. 1950 Unknown [id number] 2.16.840.1.199773.3.579. 2 1950 Unknown [id number] 2.16840.1.654301.3.579. 2. 1950 Unknown [id number] 2.16840.1.632301.3.579. 2. 1950 Unknown [id number] 2.16.840.1.704741.3.579. 2. 1950 Unknown [id number] 2.16.840.1.721811.3.579. 2. 1950 Unknown [id number] 2.16.840.1.641368.3.579. 2. 1950 Unknown [id number] 2.16.840.1.919264.3.579. 2 1950 Unknown [id number] 2.840.1.866937.3.579. 2.627 1950 Unknown [id number] 2.840.1.743227.3.579. 2. 1950 Unknown [id number] 2.840.1.467730.3.579. 2. 1950 Unknown [id number] .0.1.194054.3.579. 2. 1950 Unknown [id number] 2.0.1.145138.3.579. 2.62 Medicare MEDICARE PART A B [id number] Self-pay SELF PAY INSURANCE [id number] Unknown COMMERCIAL OTHER [id number] Unknown [id number] 2.0.1.361699.3.579. 2.462 Unknown [id number] .0.1.694811.3.579. 2.462 Unknown [id number] .840.1.341516.3.579. 2.462 Unknown [id number] .0.1.552852.3.579. 2.462 Unknown [id number] .840.1.770198.3.579. 2.462 Unknown [id number] .840.1.941786.3.579. 2.462 Unknown [id number] 2.840.1.824327.3.579. 2.462 Unknown [id number] 2.840.1.274478.3.579. 2.462 Unknown [id number] 2.840.1.957788.3.579. 2.462 Unknown [id number] 2.16.840.1.960445.3.579. 2.462 Unknown [id number] 2.16.840.1.055737.3.579. 2.462 Unknown [id number] 2.16.840.1.342997.3.579. 2.462 Unknown [id number] 2.16.840.1.512889.3.579. 2.462 Unknown [id number] 2.16.840.1.708633.3.579. 2.462 Unknown [id number] 2.16.840.1.521889.3.579. 2.462 Unknown [id number] 2.16.840.1.281961.3.579. 2.462 Unknown [id number] 2.16.840.1.281403.3.579. 2.462 Unknown [id number] 2.16.840.1.476314.3.579. 2.462 Unknown [id number] 2.16.840.1.249221.3.579. 2.462 Unknown [id number] 2.16.840.1.637110.3.579. 2.462 Unknown [id number] 2.16.840.1.780018.3.579. 2.462 Unknown [id number] 2.16.840.1.601047.3.579. 2.462 Unknown [id number] 2.16.840.1.068811.3.579. 2.462 Unknown [id number] 2.16.840.1.271548.3.579. 2.462 Unknown [id number] 2.16.840.1.886410.3.579. 2.462 Unknown [id number] 2.16.840.1.789510.3.579. 2.462 Unknown [id number] 2.16.840.1.261214.3.579. 2.462 Unknown [id number] 2.16.840.1.681559.3.579. 2.462 Unknown [id number] 2.16.840.1.817539.3.579. 2.462 Unknown [id number] 2.16.840.1.240523.3.579. 2.462 Social History Date Type Detail Facility Start: 12-12-2020 Tobacco smoking status Heavy t obacco smoker (finding) [facility] Start: 1950 Sex Assigned At Female A [facility] Start: 12-20-2022 End: 01-28-2025 Tobacco smoking status NHIS Ex-smoker [facility] Start: 1971 End: 12-15-2006 History of tobacco use Current smoker [facility] Start: 1971 End: 12-15-2006 History of tobacco use Cigarette Smoker [facility] Start: 12-20-2022 End: 10-26-2024 Cigarettes smoked current (pack per day) - Reported 1 [facility] Start: 12-20-2022 End: 10-03-2024 Tobacco use and exposure Smokeless tobacco non-user [facility] Start: 12-20-2022 End: 05-31-2024 Alcohol intake Current non-drinker of alcohol (finding) [facility] Start: 1950 Sex Assigned At Not on file [facility] Start: 01-11-2023 [facility] Start: 01-12-2023 Alcohol intake Current drinke r of alcohol (finding) [facility] Start: 01-12-2023 End: 10-26-2024 Tobacco use panel [facility] Start: 11-17-2020 End: 01-12-2023 Exposure to SARS-CoV-2 (event) Not sure [facility] Start: 07-13-2023 End: 07-13-2023 Tobacco smoking status ORIS Unknown if ever smoked [facility] Start: 04-30-2020 None [facility] Start: 04-30-2020 Alone [facility] National Score (1-10 0), lower number is lower risk Not on file To Clinic Sexual Orientation Chyna Viktoriya cook [facility] Start: 09-21-2019 End: 02-16-2022 Sex Female (finding) [facility] History of tobacco use Passive smoker [facility] Start: 10-03-2024 End: 10-17-2024 Alcoholic beverage intake Ex-drinker (finding) [facility] Start: 10-05-2024 Gender identity Identifies as female gender (finding) [facility] Start: 10-05-2024 Sexual orientation Heterosexual (fin ding) [facility] Medical Equipment Procedure Code Equipment Code Equipment Origin al Text Equipment Identifier Dates Insertion, vascular access port ([id number]) Vascular port/catheter ([id number] FDA Start: 11-16-2024 Goals Date Patient Goal Desired Activity /State Functional Status Date Assessment Result Facility 11-24-2024 Functional Status Activity Canelo marcum Independent [facility] 02-21-2024 Functional Status Room check performed [facility] 02-20-2024 Functional Status Ambulation in López, Ambulation in Room [facility] 02-11-2024 Functional Status Independent [facility] 02-04-2024 Functional Status Standard Safet y ID band on, Call device within reach, Bed in low position, Wheels locked, Upper/Half-Length side-rails up, Bedside Cart Locked, Safety level maintained [facility] 01-28-2024 Functional Status Independent [facility] 01-28-2024 Functional Status Standard Safet y ID band on, Call device within reach, Bed in low position, Wheels locked [facility] 05-11-2014 Are you deaf, or do you have serious difficulty hearing No 05/11/2014 1:16 PM Bushra Benjamin RN No [facility] 05-11-2014 Are you blind, or do you have serious difficulty seeing, even when wearing glasses No 05/11/2014 1:16 PM Bushra Benjamin RN No [facility] 05-11-2014 Do you have serious difficulty walking or climbing stairs No 05/11/2014 1:16 PM EDT Bushra Koenig RN No [facility] 05-11-2014 Do you have difficul ty dressing or bathing No 05/11/2014 1:16 PM EDT Bushra Koenig RN No [facility] 05-11-2014 Because of a physica l, mental, or emotional condition, do you have difficulty doing errands alone such as visiting a physician's office or shopping No 05/11/2014 1:16 PM EDT Bushra Koenig RN No [facility] Mental Status Date Assessment Result Facility 01-28-2025 Cognitive function Voice/Name [facility] Work Phone: 11-24-2024 Mental Status Orientation Oriented x 4 [facility] 11-16-2024 [facility] 02-21-2024 Mental Status Oriented x 4 [facility] 02-20-2024 Mental Status Oriented x 4 [facility] 02-11-2024 Mental Status Oriented x 4 [facility] 01-28-2024 Mental Status Orientation Oriented x 4 [facility] 01-28-2024 Mental Status [facility] 05-11-2014 Because of a physica l, mental, or emotional condition, do you have serious difficulty concentrating, remembering, or making decisions No 05/11/2014 1:16 PM EDT Bushra Koenig RN No [facility] Clinical Notes 12-17-2020 to 01-28-2025 Note Date & Type Note Facility 01-28-2025 Discharge summary [facility] 01-28-2025 Radiology Diagnostic study note [facility] Imaging Services [address] [place] [address] CTA Chest W/WO Contrast MR#: [id number] Acct: [id number] Name: KARINA FERNANDO Rep #: [id number] : 1950 F 74 From: Farhana Amezquita MD PCP: TORIBIO CASTILLO Status: REG ER Study:CTA Chest W/WO Contrast Date of Exam: 01/28/25 Exam# [id number] Ordering Dr: Bernarda Mckenna PROCEDURE: CTA CHEST W/WO CONTRAST 01/28/2025 REASON FOR EXAM: HX LUNG CANCER, CHEST PAIN, TACHYCARDIA, SOB TECHNIQUE: CTA CHEST W/WO CONTRAST Multiplanar Sagittal and Coronal images were obtained. 3D post processing was performed CONTRAST: Isovue 370 VOLUME: 100 mL One or more dose reduction techniques were used (e.g., Automated exposure control, adjustment of the mA and/or kV according to patient size, use of iterative reconstruction technique). RADIATION DOSE SUMMARY: CTDlvol: 6.3 mGy DLP: 1059 mGycm COMPARISON: CT chest on 01/16/2025 FINDINGS: Lines: Right chest port with tip at the superior cavoatrial junction, unchanged. Thyroid: Multinodular. Lymph nodes: No significant thoracic lymphadenopathy. Heart: Not significantly enlarged. Small pericardial effusion. Mild multivessel coronary calcifications. Thoracic Aorta: No thoracic aortic aneurysm or dissection. Mild calcified atherosclerosis. Pulmonary Vessels: No evidence of acute pulmonary emboli through the major subsegmental branches. Main pulmonary artery measures 2.8 cm in diameter. Lungs and Airways: Central airways are predominantly clear. Apical predominant centrilobular emphysema. Atelectasis and mucous plugging in the central left lower lobe, unchanged. Pleura: No effusion. There is a hypodense lesion along the left posterior pleura measuring up to 2.1 cm, unchanged. Upper Abdomen: See same date CT abdomen and pelvis Bones: Degenerative changes of the thoracic spine. Soft tissues: Bilateral breast calcifications. CT/CTA Chest W/WO Contrast IMPRESSION: 1. No pulmonary embolism or acute cardiopulmonary abnormality. 2. Unchanged findings from CT performed on 01/16/2025, as detailed above. Reading Location: [facility] CC: TORIBIO CASTILLO; RAJIV Meza ~ Implementation Director: Signed [facility] 01-28-2025 Radiology Diagnostic study note [facility] Imaging Services [address] [place] [address] Abdomen/Pelvis W IV Cont ONLY MR#: [id number] Acct: [id number] Name: KARINA FERNANDO Rep #: [id number] : 1950 F 74 From: Farhana Amezquita MD PCP: TORIBIO CASTILLO Status: REG ER Study:Abdomen/Pelvis W IV Cont ONLY Date of E xam: 01/28/25 Exam# [id number] Ordering Dr: Bernarda Mckenna PROCEDURE: ABDOMEN/PELVIS W IV CONT ONLY 01/28/2025 REASON FOR EXAM: ABDOMINAL PAIN TECHNIQUE: ABDOMEN/PELVIS W IV CONT ONLY Coronal and Sagittal reconstruction series were provided. CONTRAST: Isovue 370 VOLUME: 100 mL One or more dose reduction techniques were used (e.g., Automated exposure control, adjustment of the mA and/or kV according to patient size, use of iterative reconstruction technique. RADIATION DOSE SUMMARY: CTDlvol: 14.7 mGy DLP: 1059 mGycm COMPARISON: CT abdomen and pelvis on 01/16/2025 FINDINGS: Lung bases: See same date CT chest Liver: Subcentimeter hypodensity in the right hepatic lobe is too small to characterize. Gallbladder: Unremarkable without radiodense stones Spleen: Unremarkable Pancreas: Mildly atrophic Adrenals: Thickening of the adrenal glands with questionable nodularity, unchanged Kidneys: No radiodense stones or hydronephrosis. Subcentimeter hypodense lesionin the right kidney. Bladder: Unremarkable Reproductive Organs: Unremarkable Bowel: Hiatal hernia. There are prominent loops of fluid-filled small bowel, which are not significantly dilated and without focal transition point. No inflammatory changes. Fecalization is present within several loops of small bowel. Appendix: Surgically absent Lymph nodes: No suspicious lymph node enlargement. Vasculature: Mild diffuse atherosclerotic calcifications are noted. Bones: Postoperative changes of the lumbar spine. Anterolisthesis of L3 on L4 is unchanged. CT/Abdomen/Pelvis W IV Cont ONLY IMPRESSION: 1. Prominent fluid-filled loops of small bowel, without additional findings to suggest obstruction. There is scattered fecalization within the small bowel, suggestive of the clinical diagnosis of constipation. 2. Additional findings as detailed above, unchanged from CT performed 01/16/2025. Reading Location: [id number] CC: TORIBIO CASTILLO; RAJIV Meza ~ Implementation Director: Signed [facility] 01-28-2025 Discharge summary Note Date/Time January 28, 2025 10:17pm [facility] Medical Records Department [address] [place] [address] Emergency Department Summary 01/28/25 MR#: [id number] Acct: [id number] Name: KARINA FERNANDO Rep #:[id number] : 1950 74 From: Bernarda VANCE PCP: TORIBIO CASTILLO Status:REG ER Location: ED HPI <RAJIV Meza - Last Filed: 01/28/25 21:59> History of Present Illness Chief Complaint: Chest Pain Narrative Narrative: Patient presenting today with left-sided chest pain radiating to her left jaw and down her left arm she has had over the past 3 days. 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 She follows with Dr. Chance. She reports chronic dyspnea and uses supplemental O2 as needed, her shortness of breath has not been worse than usual. She denies any history of blood clots or recent surgery/travel/immobilization. She said earlier today shewas having mid abdominal pain that has improved. Additionally, she reports swelling to her bilateral lower extremities that has been worse over the last few days. She denies history of CHF. She denies fevers, chills, coughing, nausea, vomiting, and bowel changes. [facility] <RAJIV Meza - Last Filed: 01/28/25 21:59> [facility] Medical History Delayed surgical wound healing [...] to liver COPD (chronic obstructive pulmonary disease) Home Medications ?Medication ?Instructions ?Recorded ?Last Taken ?Type albuterol sulfate 90 mcg/actuation 1 - 2 puff inhalati on Q4H PRN PRN 08/24/19 Unknown History aerosol inhaler Sob &/Or Wheezing loratadine 10 mg tablet 10 mg PO DAILY 08/24/1910/19 History multivitamin 1 tab PO QAM 09/18/24 History albuterol sulfate 2.5 mg/3 mL 2.5 mg inhalation PRN MN N 09/22/24 11/16/24 History (0.083 %) solution for nebulization shortness of breat h or wheezing lidocaine-prilocaine 2.5 %-2.5 % 1 applic topical ONCE PRN port 10/26/24 Unknown Rx topical cream access 30 days #30 grams ondansetron 8 mg disintegrating 8 mg PO Q8H PRN nausea and 10/26/24 Unknown Rx tablet vomiting #30 tabs prochlorperazine maleate 10 mg 10 mg PO Q6H PRN nausea and 10/26/24 Unknown Rx tablet vomiting #30 tabs budesonide-formoterol HFA 80 2 inh inhalation .x4 10/1811/16/24 History mcg-4.5 mcg/actuation aerosol inhaler melatonin 2.5 mg chewable tablet 2.5 mg PO QHS PRN sle ep 11/09/24 11/15/24 History buspirone 10 mg tablet 10 mg PO TID PRN anxiety 11/16/24 History mecobalamin (vitamin B12) 1,000 1,000 mcg PO QDAY 10/1811/15/24 History mcg chewable tablet pantoprazole 40 mg tablet,delayed 40 mg PO QDAY 11/16/24 History release docusate sodium 100 mg capsule 200 mg PO QDAY 11/17/24 Unknown History (Dulcolax Stool Softener (docusate)) ferrous sulfate 325 mg (65 mg 325 mg PO QDAY 11/17/24 Unknown History iron) tablet,delayed release osteo matrix PO DAILY 11/17/24 Unknown Hi story trazodone 100 mg tablet 200 mg PO QHS 11/17/24 Unkno wn History valacyclovir 500 mg tablet 500 mg PO QDAY PRN shingles 11/17/24 Unknown History oxycodone 10 mg tablet 20 mg PO BID PRN pain Unknown History bisacodyl 5 mg tablet 5 mg PO DAILY 12/13/24 Unkno wn History doxycycline hyclate 100 mg capsule 100 mg PO BID 7 day s #14 caps 01/28/25 Unknown Rx Allergy/AdvReac Type Severity Reaction Status Date / Time calcipotriene Allergy Severe Rash Verified 01/28/25 17:44 Opioids - Morphine Analogues Allergy Severe Hives Verified 01/28/25 17:44 alendronate sodium (From Allergy Pain in Verified 01/28/25 17:44 Fosamax) joints cefaclor (From Ceclor) Allergy Hives Verified 01/28/25 17:44 ezetimibe Allergy Other Verified 01/28/25 17:44 Penicillins Allergy Hives Verified 01/28/25 17:44 tramadol HCl (From [facility]) Allergy Hives Verified 01/28/25 17:44 hydrochlorothiazide AdvReac Unknown reaction Verified 01/28/25 17:44 erythromycin base AdvReac Nausea Verified 01/28/25 17:44 Family History Mother Leukemia Osteoporosis Thyroid disorder Grandfather Brain cancer Father Respiratory disease Brother Heart disease Surgical History History of tubal ligation History of bunionectomy History of carpal tunnel surgery of right wrist History of eyelid surgery History of shoulder surgery History of carpal tunnel release History of bilateral knee replacement H/O breast biopsy History of appendectomy Previous back surgery Social History Smoking Status: Former smoker Tobacco: How many years used: 30 alcohol intake: never ROS <RAJIV Meza - Last Filed: 01/28/25 21:59> ROS ED Constitutional Constitutional ED: Denies chills or fever(s) Cardiovascular Cardiovascular: Reports chest pain Respiratory/Chest Respiratory/Chest: Reports dyspnea Gastrointestinal Gastrointestinal: Reports abdominal pain; Denies diarrhea, nausea or vomiting Genitourinary Genitourinary ED: Denies dysuria, hematuria or urinary urgency Musculoskeletal Musculoskeletal: Denies arthralgias or myalgias Integumentary Denies rash Neurologic Neurologic: Denies weakness EXAM <RAJIV Meza - Last Filed: 01/28/25 21:59> Physical Exam Const Vital Signs: 01/28/25 17:44 01/28/25 18:44 01/28/25 18:55 Temperature 98.5 F 98.4 F Temperature Source Oral Oral Pulse Rate 103 H 95 Respiratory Rate 16 10 L Respiratory Effort Short of Breath Blood Pressure 116/91 H 131/83 H Blood Pressure Mean 99 99 Pulse Ox 97 100 Oxygen Delivery Method Room Air Nasal Cannula Oxygen Flow Rate (L/min) 3 01/28/25 19:00 01/28/25 20:00 01/28/25 21:00 Temperature 98.4 F Temperature Source Oral Pulse Rate 95 88 88 Respiratory Rate 25 H 14 16 Respiratory Effort Blood Pressure 133/85 H 134/89 H 123/106 H Blood Pressure Mean 101 104 111 Pulse Ox 100 100 100 Oxygen Delivery Method Room Air Room Air Room Air Oxygen Flow Rate (L/min) 3 Positive well nourished, well developed and no apparent distress General Appearance ED: well developed HEENT Reports normocephalic and head/scalp atraumatic Mouth ED: Yes moist mucous membranes normal Eyes PERRL and EOMs intact bilaterally Neck full ROM and supple Chest Wall inspection of chest normal Resp normal respiratory effort and clear to auscultation bilaterally Cardio regular rate and regular rhythm GI soft to palpation, non-tender, non-distended and no masses Back/Spine normal ROM and normal to inspection Extremity normal to inspection and full ROM Extremity Narrative: Bilateral lower extremity edema, there is erythema and warmth to the anterior lower aspect of the bilateral lower legs Neuro oriented x3, CN's II-XII intact bilaterally, moves all extremities, no focal motor deficits and no sensory deficits noted Sensorium / Orientation: awake and alert Psych mental status grossly normal and thought process normal Skin no rashes or lesions noted and no wounds <Dr. Georgi Barroso DO - Last Filed: 01/28/25 21:59> Physical Exam Const Vital Signs: 01/28/25 17:44 01/28/25 18:44 01/28/25 18:55 Temperature 98.5 F 98.4 F Temperature Source Oral Oral Pulse Rate 103 H 95 Respiratory Rate 16 10 L Respiratory Effort Short of Breath Blood Pressure 116/91 H 131/83 H Blood Pressure Mean 99 99 Pulse Ox 97 100 Oxygen Delivery Method Room Air Nasal Cannula Oxygen Flow Rate (L/min) 3 01/28/25 19:00 01/28/25 20:00 01/28/25 21:00 Temperature 98.4 F Temperature Source Oral Pulse Rate 95 88 88 Respiratory Rate 25 H 14 16 Respiratory Effort Blood Pressure 133/85 H 134/89 H 123/106 H Blood Pressure Mean 101 104 111 Pulse Ox 100 100 100 Oxygen Delivery Method Room Air Room Air Room Air Oxygen Flow Rate (L/min) 3 [facility] <RAJIV Meza - Last Filed: 01/28/25 21:59> [facility] Narrative Medical decision making narrative: Patient presenting today with left-sided chest pain radiating to the left jaw and left arm that has been ongoing over the past few days. She does have a history of metastatic small cell lung cancer. She is slightly tachycardic here,given her cancer history, CT of the chest will be obtained to assess for PE, infiltrate, pleural effusion, and other abnormality. She also has swelling to her bilateral lower extremities that has been worse over the last several days. Cardiac labs initiated. Her abdomen/pelvis CT shows constipation, no evidence of bowel obstruction. She reports that she has been feeling constipated, she had a small bowel movement this morning, recommended she start taking MiraLAX which she has at home. Chest CTA negative for PE or other acute cardiopulmonaryabnormality. I did offer her pain medication here and she declined. I do feel she would benefit from a course of antibiotics due to her lower leg swelling. There is erythema and warmth to the bilateral lower anterior aspects of the legswhich may be consistent with cellulitis. She will be given doxycycline with first dose here. I recommended she have close follow-up with oncology and she will be discharged home in stable condition. Lab Data Attestation: I reviewed the patient's lab results. Lab results narrative: Hemoglobin 10.2, BNP 167, initial troponin 13 Labs: Laboratory Results - last 24 hr 01/28/25 01/28/25 19:30 19:33 WBC 5.3 RBC 3.30 L Hgb 10.2 L Hct 31.2 L MCV 94.5 MCH 30.9 MCHC 32.7 RDW Std Deviation 76.0 H RDW Coeff of Juan David 21.9 H Plt Count 439 MPV 8.6 Immature Gran % (Auto) 0.400 Neut % (Auto) 58.1 Lymph % (Auto) 24.7 [place] % (Auto) 16.2 H Eos % (Auto) 0.0 Baso % (Auto) 0.6 Absolute Neuts (auto) 3.1 Absolute Lymphs (auto) 1.31 Nucleated RBC % 0 Differential Comment SCANNED Hypochromasia RARE Anisocytosis 2+ Microcytosis 1+ Ovalocytes 1+ Sodium 137 Potassium 3.5 Chloride 100 Carbon Dioxide 26.1 Anion Gap 12 BUN 11 Creatinine 0.83 Estim Creat Clear Calc 56.95 Est GFR (MDRD) Non-Af 74 BUN/Creatinine Ratio 13.3 Glucose 111 H Calcium 8.8 Total Bilirubin 0.19 AST 22 ALT 23 Alkaline Phosphatase 83 Troponin T High Sens 13 D NT pro BNP II 167 Total Protein 5.9 Albumin 3.6 Globulin 2.3 Albumin/Globulin Ratio 1.6 Lipase 10 L Urine Color Yellow Urine Clarity Clear Urine pH 6.0 Ur Specific Check 1.020 Urine Protein 15 H Urine Glucose (UA) Normal Urine Ketones Negative Urine Occult Blood Negative Urine Nitrite Negative Urine Bilirubin Negative Urine Urobilinogen Normal Ur Leukocyte Esterase Negative Radiography Diagnostic Testing: Clinical Impression(s) from Imaging Studies Abdomen/Pelvis CT 01/28/25 18:52 IMPRESSION: 1. Prominent fluid-filled loops of small bowel, without additional findings to suggest obstruction. There is scattered fecalization within the small bowel, suggestive of the clinical diagnosis of constipation. 2. Additional findings as detailed above, unchanged from CT performed 01/16/2025. Reading Location: [id number] Chest CTA 01/28/25 18:52 IMPRESSION: 1. No pulmonary embolism or acute cardiopulmonary abnormality. 2. Unchanged findings from CT performed on 01/16/2025, as detailed above. Reading Location: [id number] EKG Initial EKG: Comments: Bpm, normal sinus rhythm, no ST elevation, interpreted by attending ED physician <Dr. Georgi Barroso, DO - Last Filed: 01/28/25 21:59> MDM Lab Data Labs: Laboratory Results - last 24 hr 01/28/25 01/28/25 19:30 19:33 WBC 5.3 RBC 3.30 L Hgb 10.2 L Hct 31.2 L MCV 94.5 MCH 30.9 MCHC 32.7 RDW Std Deviation 76.0 H RDW Coeff of Juan David 21.9 H Plt Count 439 MPV 8.6 Immature Gran % (Auto) 0.400 Neut % (Auto) 58.1 Lymph % (Auto) 24.7 [place] % (Auto) 16.2 H Eos % (Auto) 0.0 Baso % (Auto) 0.6 Absolute Neuts (auto) 3.1 Absolute Lymphs (auto) 1.31 Nucleated RBC % 0 Differential Comment SCANNED Hypochromasia RARE Anisocytosis 2+ Microcytosis 1+ Ovalocytes 1+ Sodium 137 Potassium 3.5 Chloride 100 Carbon Dioxide 26.1 Anion Gap 12 BUN 11 Creatinine 0.83 Estim Creat Clear Calc 56.95 Est GFR (MDRD) Non-Af 74 BUN/Creatinine Ratio 13.3 Glucose 111 H Calcium 8.8 Total Bilirubin 0.19 AST 22 ALT 23 Alkaline Phosphatase 83 Troponin T High Sens 13 D NT pro BNP II 167 Total Protein 5.9 Albumin 3.6 Globulin 2.3 Albumin/Globulin Ratio 1.6 Lipase 10 L Urine Color Yellow Urine Clarity Clear Urine pH 6.0 Ur Specific Check 1.020 Urine Protein 15 H Urine Glucose (UA) Normal Urine Ketones Negative Urine Occult Blood Negative Urine Nitrite Negative Urine Bilirubin Negative Urine Urobilinogen Normal Ur Leukocyte Esterase Negative Radiography Diagnostic Testing: Clinical Impression(s) from Imaging Studies Abdomen/Pelvis CT 01/28/25 18:52 IMPRESSION: 1. Prominent fluid-filled loops of small bowel, without additional findings to suggest obstruction. There is scattered fecalization within the small bowel, suggestive of the clinical diagnosis of constipation. 2. Additional findings as detailed above, unchanged from CT performed 01/16/2025. Reading Location: [facility] Chest CTA 01/28/25 18:52 IMPRESSION: 1. No pulmonary embolism or acute cardiopulmonary abnormality. 2. Unchanged findings from CT performed on 01/16/2025, as detailed above. Reading Location: [facility] Treatment and Re-Evaluation :: ED attending note: I evaluated the patient in conjunction with the [facility]. I agree with his/her statements and above findings. I have personally performed a face to face assessment of the patient and have reviewed the [facility] Note. I performed a substantive portion of the visit including all aspects of the following. I personally saw the patient performed chart review, physical exam, reviewed labs,imaging (if obtained), and formulated a treatment and management plan. This note was generated with [employer] dictation software. It may contain incorrectwords, spelling, and punctuation that were not noted in review of the chart prior to signing. Discharge Plan Triage Chief Complaint: Chest Pain ED Midlevel Provider: Bernarda Win ED Provider: Georgi Barroso Dx/Rx/DC Orders Clinical Impression: Cellulitis, Localized swelling of both lower legs, Hx of metastatic neoplastic disease, Chest pain, Constipation, Abdominal pain Instructions: ED Cellulitis, ED Chest Pain, Uncertain Cause Prescriptions: New doxycycline hyclate 100 mg capsule 100 mg PO BID 7 Days Qty: 14 0RF No Action multivitamin Tablet 1 tab PO QAM albuterol sulfate 2.5 mg /3 mL (0.083 %) solution for nebulization 2.5 mg inhalation PRN PRN (Reason: shortness of breath or wheezing) Patient Comments: [NO ORIGINAL SIG] prochlorperazine maleate 10 mg tablet 10 mg PO Q6H PRN (Reason: nausea and vomiting) Qty: 30 2RF ondansetron 8 mg tablet,disintegrating 8 mg PO Q8H PRN (Reason: nausea and vomiting) Qty: 30 2RF lidocaine-prilocaine 2.5-2.5 % cream 1 applic topical ONCE PRN (Reason: port access) 30 Days Qty: 30 2RF mecobalamin (vitamin B12) 1,000 mcg tablet,chewable 1,000 mcg PO QDAY pantoprazole 40 mg tablet,delayed release (DR/EC) 40 mg PO QDAY docusate sodium [Dulcolax Stool Softener (dss)] 100 mg capsule 200 mg PO QDAY osteo matrix PO DAILY ferrous sulfate 325 mg (65 mg iron) tablet,delayed release (DR/EC) 325 mg PO QDAY valacyclovir 500 mg tablet 500 mg PO QDAY PRN (Reason: shingles) albuterol sulfate 1 INHALER inhaler 1 - 2 puff inhalation Q4H PRN PRN (Reason: Sob &/Or Wheezing) loratadine 10 MG tablet 10 mg PO DAILY buspirone 10 mg tablet 10 mg PO TID PRN (Reason: anxiety) oxycodone 10 mg tablet 20 mg PO BID PRN (Reason: pain) bisacodyl 5 mg tablet 5 mg PO DAILY melatonin 2.5 mg tablet,chewable 2.5 mg PO QHS PRN (Reason: sleep) budesonide-formoterol 80-4.5 mcg/actuation HFA aerosol inhaler 2 inh INHALATION .x4 Patient Comments: [NO ORIGINAL SIG] Rx Instructions: 2 puffs in morning, 2 puffs at night trazodone 100 mg tablet 200 mg PO QHS Primary Care Provider: JOSELIN NIETO Referrals: JOSELIN NIETO CRNP [Primary Care Provider] - 5-7 Days Activity Restrictions/Additional Instructions: Close follow-up with your PCP return for any worsening symptoms or other concerns. Print Language: Zambian Disposition Disposition: Home, Self Care What to do if you have Problems For any increased pain, shortness of breath, bleeding, nausea or vomiting, chestpain, or any unexpected problems, contact your Primary Care Provider. Call [facility] ([phone]) or report to the closest Emergency Room. Call 911 if necessary. 01/28/252158 <Electronically signed by Bernarda VANCE> Cosigner Signature (if applicable): 01/28/252216 <Electronically signed by Georgi Barroso DO> CC: TORIBIO CASTILLO ~ Signed [facility] Work Phone: 1(239) 702-871607-01-2025 Radiology Diagnostic study note [facility] Imaging Services [address] [place], [place] [address] CT Chest, Abd, Pel w/Contrast MR#: [id number] Acct: [id number] Name: KARINA FERNANDO Rep #: [id number] : 1950 F 74 From: Yosef Moncada MD PCP: Dr. Tu Hector, DO Status: REG CLI Study:CT Chest, Abd, Pel w/Contrast Date of Haile marie: 01/16/25 Exam# [id number] Ordering Dr: Anayeli Stern NP BOARD OF DIRECTORS-C PROCEDURE: CT CHEST, ABD, PEL W/CONTRAST 01/16/2025 [...] thyroid lobe and there are multiple hypodense nodulesin both thyroid lobes. There are also coarse [...] mildly distended but not abnormally dilated and fluid- filled small bowel loops, may indicate a mild [...] 6. Other findings as noted. Reading Location: [id number] CC: HOPE Win; Dr. Tu Hector, DO ~ Implementation Director: Signed [facility] Work Phone: 1(672) 661-248806-17-2025 [facility] [address] [place] [address] OFFICE VISIT Date of Service: 01/02/25 0955 MR#: [id number] Acct: [id number] Name: KARINA FERNANDO Rep #: [id number] : 1950 From: Alis gilliam MD Age/Sex: 74/F [place] [facility] [place]: Signed HPI Subjective Date of Service [...] Carboplatin, etoposide and durvalumab October 31, 2024. [facility] Medical History Delayed surgical wound healing [...] no addt'l complaints, except as documented, back painand other Details: Chronic back pain Integumentary Integumentary: [...] canula Oxygen Flow Rate (L/min) 3 Intake Clay Puddler Required: No Accompanied by: Self Is patient [...] 2.5 mg/3 mL 2.5 mg inhalation PRN MN N 09/22/24 01/02/25 History (0.083 %) solution [...] no focal motor deficits Coordination / Balance: pqbibz-wd-aquy test normal Speech: speech normal Gait (Neuro): [...] evidence of PE but showed a left upperlobe pleural-based mass, left hilar/mediastinal mass most consistent with lymphadenopathy. There kali moderate pericardial effusion on imaging. JUDD showed [...] maintenance. Continue to support with antiemetics, steroids andprimary prophylaxis against febrile neutropenia with growth factor support. Patient was seen with her daughter, impression and plan discussed Alis Chance MD Explosives Mixer Operator, [facility] Divisions of Medical Oncology & Hematology Department of Internal Medicine [place] [facility] [place] [phone] This note was generated using a voice [...] in the past year?: No 01/02/25 1020 [facility] MD> Date _ Alis Chance MD Cosigner Signature: Date (if applicable) CC: ~ [facility] [id number] Progress note Author Alis Chance [facility] Note Date/Time January 02, 2025 10:2 0am [facility] H ealt System [place] [facility] [address] [place] [address] OFFICE VISIT Date of Service: 01/02/25 0955 MR#: [id number] Acct: [id number] Name: KARINA FERNANDO Rep #: [id number] : 1950 From: Alis gilliam MD Age/Sex: 74/F Location[facility] Status: Signed HPI Subjective Date of Service [...] Carboplatin, etoposide and durvalumab October 31, 2024. [facility] Medical History Delayed surgical wound healing [...] canula Oxygen Flow Rate (L/min) 3 Intake Clay Puddler Required: No Accompanied by: Self Is patient in pain?: Yes (B/L forearm, fingers, and mid back) Pain scale (1- 10):8 Allergies Opioids - Morphine Analogues Allergy (Severe, [...] 2.5 mg/3 mL 2.5 mg inhalation PRN MN N 09/22/24 01/02/25 History (0.083 %) solution [...] no focal motor deficits Coordination / Balance: yhndob-sy-ropb test normal Speech: speech normal Gait (Neuro): [...] impression and plan discussed Alis Chance MD Explosives Mixer Operator, [facility] Divisions of Medical Oncology & Hematology Department of Internal Medicine [place] [id number] This note was generated using a voice [...] Cosigner Signature: Date (if applicable) CC: ~ [facility] Work Phone: [phone]) 709-963405-09-2025 Hospital Discharge instructions Patient Education 11/24/2024 14:53:17 [...] wet, you can dry it with a office chair assembler. You may use acetaminophen or ibuprofen to [...] or as directed by your healthcare provider [phone] [employer] [place] [address]. All rights reserved. This information is not [...] affected hand Decreased movement of the hand [id number] [employer] [place], [place] [id number]. All rights reserved. This information is not intended as a substitute for professional medical care. Always follow yourhealthcare professional's instructions. Follow Up Care 11/24/2024 13:54:15 With:BOB POOL MD Address: [address] [place] [address] [phone] When:2-4 days With:TU HECTOR DO Address: [address] [place] [address] [phone] When:2-4 days [facility] 05-09-2025 Emergency department Discharge summary Discharge Instructions Thank you for allowing [facility] to assist you with your healthcare needs. [...] BOB POOL MD When:Within 2-4 days Where:[address] [place] [address] [phone] Follow Up with TU HECTOR DO When:Within 2-4 days Where:[address] [place] [phone] Allergies Ceclor Hives Fosamax Swelling / lump [...] Days Unchanged Misc Medication (Mult. Vitamins by [facility]) Carotomax, OmegaGuard, Osteo Matrix, Sona-Palak Gold w/ [...] wet, you can dry it with a office chair assembler. You may use acetaminophen or ibuprofen to [...] or as directed by your healthcare provider [phone] [employer]. [address] [place] [address]. All rights reserved. This information is not [...] affected hand Decreased movement of the hand [phone] [employer]. [address] [place] [address]. All rights reserved. This information is not intended as a substitute for professional medical care. Always follow yourhealthcare professional's instructions. Additional Information VACCINATE! IT SAVES LIVES! Members of the community who have not yet received the COVID-19 vaccine and would like to receive it can visit one of [facility] vaccine clinics. There are many vaccine clinic locations within the [facility]. For locations and available times, please visit [email or web address] It is important to note that some COVID mobile vaccine clinics are held outdoors and may be canceled in rainy or stormy conditions. To learn more about pediatric vaccinations (ages 5-11), we invite you to visit the [facility] webpage. https://www.[email or web address]/[email or web address]-[email or web address]-Wccbnririe-Kvcqm-Poq stions.htmlTo learn more about the COVID-19 vaccine, we invite you to visit the CDC website for a list of frequently asked questions. https://www.cdc.gov/coronavirus/2019-ncov/vaccines/faq.html [facility] [employer] Patient Portal Access Instructions: Stay connected with your healthcare team and access your personal medical information anytime with the [email or web address] Patient Portal. If you would like a full copy of your medical records please contact the [facility] Medical Records Department Wednesday through Wednesday between 8a.m. and 4:30p.m. Please follow the directions below to access the portal: 1.Access the email account you provided upon registration to the hospital.2.Look for an invitation email from [facility].3.Open the email and access the invitation link: Accept Invitation to [email or web address].Fill in the required abbasi to create your account. Sign into [email or web address] with your username and password that you [...] you will allow to register on the [email or web address] Patient Portal for access to your information. You can also access the [email or web address] Patient Portal on the [employer] chica. Simply click on Health Records under FID3 and then click on the [facility] logo. [...] Call your local pharmacy or go to [email or web address] to find one close to you.3.Make use of household items: Use cat litter or old coffee grounds to dispose medications if other options arenot available. Mix your drugs with these household products, seal them in an airtight container andthrow it into the garbage. Call [facility]: [phone] to be sure your drugs can be [...] aware that I should contact my doctor. Patient/Infection Control Practitioner Signature: Date/Time: Relationship to Patient: Witness Name/Signature: Date/Time: [id number] Note* Exam Date Time Procedure Performing Provider Status 11/24/24 3:26 PM XR Finger Thumb 3 Views Left ROB GRIGSBY MD; Auth (Verified) [id number] ORIGINAL EXAMINATION: THREE XRAY VIEWS OF THE [...] Date: 11/24/2024 3:30:21 PM Ordering Provider: [facility]05-01-2025 [facility]04-17-2025 Telephone encounter Note* Telephone Encounter - Shante Kirk MA - 11/02/2024 12:40 PM EDT Faxed office note to [facility] [place] [id number] Miscellaneous Notes* Telephone Encounter - Shante Kirk MA - 11/02/2024 12:40 PM EDT Faxed office note to [facility] * Telephone Encounter - NEGIN Petty CNP - 11/01/2024 5:02 PM EDT Phone call to patient Daughter, ( patient is not able to speak on the phone due to vocal cord paralysis and tumor compression ), 2 weeks ago, her HCTZ was stopped by [facility], due to dehydration and hypotension. She [...] daughter would like to establish with a certified diabetes educator in [place]. Patient is monitoring her BP at home, and will call her daughter, ( who is at work now) if BP drops. She willcontact the operations coordinator to see if she can arrange [...] Daughter states chemo staff said to call certified diabetes educator. She is not sure if oncologist or [...] yesterday. Chemo staff wanted pt to call certified diabetes educator pt has edema in ankles. documented in this [facility]04-16-2025 Telephone encounter Note* Telephone Encounter - NEGIN Petty CNP - 11/01/2024 5:02 PM EDT Phone call to patient Daughter, ( patient is not able to speak on the phone due to vocal cord paralysis and tumor compression ), 2 weeks ago, her HCTZ was stopped by [facility], due to dehydration and hypotension. She [...] daughter would like to establish with a certified diabetes educator in [place]. Patient is monitoring her BP at home, and will call her daughter, ( who is at work now) if BP drops. She willcontact the operations coordinator to see if she can arrange Cardiology to see her tomorrow while at the infusion center. She will keep us updated. [employer] Phone: [phone] Miscellaneous Notes* Telephone Encounter - NEGIN Petty CNP - 11/01/2024 5:02 PM EDT Phone call to patient Daughter, ( patient is not able to speak on the phone due to vocal cord paralysis and tumor compression ), 2 weeks ago, her HCTZ was stopped by [facility], due to dehydration and hypotension. She [...] daughter would like to establish with a certified diabetes educator in [place]. Patient is monitoring her BP at home, and will call her daughter, ( who is at work now) if BP drops. She willcontact the operations coordinator to see if she can arrange [...] Daughter states chemo staff said to call certified diabetes educator. She is not sure if oncologist or [...] yesterday. Chemo staff wanted pt to call certified diabetes educator pt has edema in ankles. [id number] Telephone encounter Note* Telephone Encounter - Shante Kirk MA - 11/01/2024 3:44 PM EDT Daughter called back she spoke to oncologist and oncologist is more comfortable if we deal with this. [place] [id number] Telephone encounter Note* Telephone Encounter - Lenore Ambrosio RN - 11/01/2024 1:17 PM EDT I spoke with daughter pt having increase BOWMAN/ up 7 #s/b/l lower extremity edema after having 2 chemo treatments. Daughter states chemo staff said to call certified diabetes educator. She is not sure if oncologist or his office is aware. I asked her to check with them first regarding the symptoms she is having. The care will be directed by them. She will call back after she makes sure the oncologist is aware. [address] [id number] Telephone encounter Note* Telephone Encounter - Shante Kirk MA - 11/01/2024 11:13 AM EDT Daughter calling pt is new to chemo having second treatment today. She has gained 7# since yesterday. Chemo staff wanted pt to call certified diabetes educator pt has edema in ankles. [id number] Telephone encounter Note* Telephone Encounter - Aixa Roche RCP - 10/27/2024 2:17 PM EDT Reviewed clinisync and confirmed that patient ws able to establish with [facility] on 10/26/24. Beginning treatment 10/31/24. [place] [id number] Miscellaneous Notes* Telephone Encounter - Aixa Roche RCP - 10/27/2024 2:17 PM EDT Reviewed clinisync and confirmed that patient ws able to establish with [facility] on 10/26/24. Beginning treatment 10/31/24. * Telephone Encounter - Aixa Roche RCP - 10/24/2024 10:49 AM EDT Received call from Alee, Napper Fixer at [facility]. Per Alee, they are aware patient now has oncology appt in [place], but they are tryoing to have her seen at [place] sooner. Right faxed MRI brain and PET reports to providers at [place] in case she returns to them for [...] Lacho Kamara placed the recommended referral to [facility] medical oncology. Navigator spoke directly with accounts payable coordinator and medical oncology provider office and stressed urgency of appointment follow-up. appointment coordinator and medical oncology discussed directly with oncologist at [facility]. They are unable to offer Karina an appointment sooner than previously scheduled with her [place] oncology team. Navigator apologized to family and recommended they keep previously scheduled [place] oncology appointment. Patient will see Dr. Dunham 11/01/24 per daughter. Records have been sent to [place] and PET and MRI will also be sent when reports are final. Family has navigator contact info and will call if they need assistance. * Telephone Encounter - Aixa Roche RCP - 10/18/2024 11:[address] referral for medical oncology to [facility]. Navigator spoke with accounts payable coordinator and medical oncology office. She will discuss with oncology providers tomorrow morning to stress the urgency of appointment and attempt to expedite appointment. If unable to get patient in sooner than [place], navigator will advise patient to keep previously scheduled oncology follow-up. Daughter notified. * Telephone Encounter - Aixa Roche RCP - 10/18/2024 8:33 AM EDT Navigator received callback from patient's daughter Diaz. Patient's daughter reports that since we are able to expedite MRI and PET scan, oncology appointment has been moved up to 10/31/2024, but this is just tentative appointment as her oncology provider [facility] is out of town and may not be back until 11/06/2024. Daughter would like Dr. Lacho Kamara to review and is willing to transfer care for oncology [facility] if pulmonary provider feels sooner oncology [...] to patient's regular oncologist, Dr. Dunham and release coordinator Rhiannon Georges in [place]. Patient has medical oncology appointment 11/06/24 but will try to move appointment sooner after PET scan. Navigator will send PET and MRI reports to providers once final . documented in this [facility]04-10-2025 History of Present illness Narrative* Joselyn Tucker MD - 10/26/2024 10:20 AM EDT . ENDOCRINOLOGY [address] [place] [id number] Dept: [phone] Dept Visit type: New patient Reason for [...] capsule by mouth daily., Disp: , Rfl: [place]-3 Fatty Acids (OMEGA 3 500 PO), Take [...] visit. 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 October 26, 2024 3:46pm Encounter for insertion of venous access port acute October 27 025 12:39pm Encounter for antineoplastic immunotherapy acute October 31, 2024 7:16am Encounter for chemotherapy management acute October 31, 2024 7:16am 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 October 31, 2024 7:16am 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 October 31, 2024 7:16am 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 October 31, 2024 7:16am Hypokalemia acute November 09, 025 8:32am 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 November 09, 2024 8:32am 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 November 09, 2024 8:32am 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 November 09, 2024 8:32am Pericardial effusion acute November 17, 2024 11:23am Right atrial mass acute November 11:23am Small cell lung cancer chronic Ma y 2024 11:23am Mediastinal lymphadenopathy chronic November 21, 2024 8:07am Constipation acute December 12 8:07am Delayed surgical wound healing acute December 12, 2024 8:07am Encounter for antineoplastic immunotherapy acute December 12, 2024 8 :07am Encounter for chemotherapy management acute December 12, 2024 8 :07am Mediastinal lymphadenopathy chronic December 12, 2024 8:07am 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 December 12, 2024 8:07am 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 November 172024 8:07am Small cell lung cancer chronic Ma y 2024 8:07am Mediastinal lymphadenopathy chronic January 02, 2025 9:04am 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 January 23, 2025 9:03am 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 January 23, 2025 9:03am Small cell lung cancer chronic 2024 9:03am [facility] Work Phone: [phone]) 388-240104-08-2025 Telephone encounter Note* Telephone Encounter - NEGIN Johnson CNP - 10/24/2024 11:26 AM EDT Case reviewed - advanced small cell lung cancer *The patient's OARRS report was obtained and reviewed.* [id number] Miscellaneous Notes* Telephone Encounter - NEGIN Johnson CNP - 10/24/2024 11:26 AM EDT Case reviewed - advanced small cell lung cancer *The patient's OARRS report was obtained and reviewed.* * Telephone Encounter - Alayna Kaplan - 10/24/2024 11:[address] Fortune, pt needs a prescription sent for percocet 5/325mg, 1 tab Q6 hours PRN. [id number] Telephone encounter Note* Telephone Encounter - Alayna Kaplan - 10/24/2024 11:[address] Fortune, pt needs a prescription sent for percocet 5/325mg, 1 tab Q6 hours PRN. [id number] Telephone encounter Note* Telephone Encounter - Aixa Roche RCP - 10/24/2024 10:49 AM EDT Received call from Alee Napper Fixer at [facility]. Per Alee, they are aware patient now has oncology appt in [place], but they are tryoing to have her seen at [place] sooner. Right faxed MRI brain and PET reports to providers at [place] in case she returns to them for oncology care. Also requested images be pushed to provider. [place] [id number] Miscellaneous Notes* Telephone Encounter - Aixa Roche RCP - 10/24/2024 10:49 AM EDT Received call from Alee Napper Fixer at [facility]. Per Alee, they are aware patient now has oncology appt in [place], but they are tryoing to have her seen at [place] sooner. Right faxed MRI brain and PET reports to providers at [place] in case she returns to them for oncology care. Also requested images be pushed to provider. * Telephone Encounter - Alayna aKplan - 10/24/2024 9:[address] Fortune discussed patient with Dr. Worrell. Expedited referral arranged, pt is scheduled to see Dr. Jerry on Wednesday10/27/24 at 0800. Pt and daughter are aware of appointment. * Telephone Encounter - Aixa Roche RCP - 10/19/2024 12:[address] Lacho Kamara placed the recommended referral to [facility] medical oncology. Navigator spoke directly with accounts payable coordinator and medical oncology provider office and stressed urgency of appointment follow-up. appointment coordinator and medical oncology discussed directly with oncologist at [facility]. They are unable to offer Karina an appointment sooner than previously scheduled with her [place] oncology team. Navigator apologized to family and recommended they keep previously scheduled [place] oncology appointment. Patient will see Dr. Dunham 11/01/24 per daughter. Records have been sent to [place] and PET and MRI will also be sent when reports are final. Family has navigator contact info and will call if they need assistance. * Telephone Encounter - Aixa Roche RCP - 10/18/2024 11:[address] referral for medical oncology to [facility]. Navigator spoke with accounts payable coordinator and medical oncology office. She will discuss with oncology providers tomorrow morning to stress the urgency of appointment and attempt to expedite appointment. If unable to get patient in sooner than [place], navigator will advise patient to keep previously scheduled oncology follow-up. Daughter notified. * Telephone Encounter - Aixa Roche RCP - 10/18/2024 8:33 AM EDT Navigator received callback from patient's daughter Diaz. Patient's daughter reports that since we are able to expedite MRI and PET scan, oncology appointment has been moved up to 10/31/2024, but this is just tentative appointment as her oncology provider [facility] is out of town and may not be back until 11/06/2024. Daughter would like Dr. Lacho Kamara to review and is willing to transfer care for oncology [facility] if pulmonary provider feels sooner oncology [...] to patient's regular oncologist, Dr. Dunham and release coordinator Rhiannon Georges in [place]. Patient has medical oncology appointment 11/06/24 but will try to move appointment sooner after PET scan. Navigator will send PET and MRI reports to providers once final . documented in this [facility]04-08-2025 History of Present illness Narrative* Silvio Fortune MD - 10/24/2024 10:43 AM EDT OARRS reviewed documented in this [facility]04-08-2025 NoteDrJosh Fortune discussed patient with Dr. Worrell. Expedited referral arranged, pt is scheduled to see Dr. Jerry on Wednesday10/27/24 at 0800. Pt and daughter are aware of appointment.[facility]04-08-2025 Telephone encounter Note * Telephone Encounter - Alayna Kaplan - 10/24/2024 9:[address] Fortune discussed patient with Dr. Worrell. Expedited referral arranged, pt is scheduled to see Dr. Jerry on Wednesday10/27/24 at 0800. Pt and daughter are aware of appointment. [place] [id number] History of Present illness Narrative* Silvio Fortune MD - 10/24/2024 9:30 AM EDT Images from the original note were not included. [facility] [address] [facility] [address] Dept: [phone] Dept Loc: [phone] Patient was identified and seen today via [...] stated that they are currently in the [facility]. If the patient is a minor, [...] etiology. Per note, pt had presented to [place] ED in August 2023 for dyspnea. CTA [...] consistent with malignancy. Patient was hospitalized at [facility] on 10/05/24 for shortness of breath, then transferred to [facility] for ongoing care. An US guided [...] follow with her oncologist Dr. Chance in [place]. MRI brain on 10/17/24 was normal. PET [...] patient also completed a thyroid biopsy at [place] and pathologyis still pending/unavailable. Pt is a [...] capsule by mouth daily., Disp: , Rfl: [place]-3 Fatty Acids (OMEGA 3 500 PO), Take [...] TISSUE. Please see associated cytology specimen ([id number]). Cytology 10/09/24 Final Diagnosis A - Mediastinal [...] Pulmonology: Rachel Johnson DO Pulmonary Navigator: Aixa Roche RCP Disclaimer INFORMED CONSENT:The nature and purpose [...] This note may have been dictated using AirCell Practice Edition 2.6 and/or Encarnate Voice Recognition Feature. The document was proofread, however unrecognized voice recognition air and missile defense crewmember errors may be present. documented in this [facility]04-05-2025 Discharge summary [facility] Medical Records Department [address] [place] [address] Emergency Department Summary 10/21/24 MR#: [id number] Acct: [id number] Name: KARINA FERNANDO Rep #:[id number] : 1950 73 From: Tay Dumont MD PCP: Dr. Tu Hector DO Status:REG ER [...] had a recent admission and transfer to [facility] and her daughter states that when shewas [...] blood pressure medication according to her daughter. [facility] Medical History COPD (chronic obstructive pulmonary disease) [...] 2.5 mg/3 mL 2.5 mg inhalation PRN MN N 09/22/24 Unknown History (0.083 %) solution [...] Hives Verified 10/21/24 15:06 tramadol HCl (From Ultra) Allergy Hives Verified 10/21/24 15:06 erythromycin base [...] pulmonary embolism. She had been transferred to [facility] at the end of last month, just [...] they found that when she was at [facility] and recently discharged, stating that it was [...] 70.7 H Lymph % (Auto) 16.1 L [place] % (Auto) 12.4 H Eos % (Auto) [...] mucous plug or other etiology Reading [facility] Discharge Plan Triage Chief Complaint: Shortness of [...] Primary Care Provider: Tu Hector Referrals: Tu Hector, [Primary Care Provider] - 3-5 Days if [...] directed. Follow-up with your oncologist. Print Language: Zambian Disposition Disposition: Home, Self Care What to do if you have Problems For any increased pain, shortness of breath, bleeding, nausea or vomiting, chestpain, or any unexpected problems, contact your Primary Care Provider. Call [facility] ([phone]) or report tothe closest Emergency Room. Call 911 if necessary. 10/21/24 1645 Cosigner Signature (if applicable): CC: Dr. Tu Hector DO ~ Signed [facility]04-05-2025 Radiology Diagnostic study note [facility] Imaging Services [address] [place] [id number] Chest 1 View (Portable) MR#: [id number] Acct: [id number] Name: KARINA FERNANDO Rep #: [id number] : 1950 F 73 From: Pet er Herbert CAT PCP: Dr. Tu Hector DO Status: REG ER Study:Chest 1 View (Portable) Date of Exam: 10/21/24 Exam# [id number] Ordering Dr: Tay Dumont MD PROCEDURE: CHEST [...] mucous plug or other etiology Reading [facility] CC: Dr. Tay Dumont MD; Dr. Tu Hector DO ~ Implementation Director: Signed [facility]04-05-2025 Discharge summary Author Tay Dumont [facility] Note Date/Time October 21, 2024 4:45 pm [facility] Medical Records Department [address] [place] [address] Emergency Department Summary 10/21/24 MR#: [id number] Acct: [id number] Name: KARINA FERNANDO Rep #:[id number] : 1950 73 From: Tay Dumont MD PCP: Dr. Tu Hector, DO Status:REG ER Location: ED HPI History [...] had a recent admission and transfer to [facility] and her daughter states that when she [...] blood pressure medication according to her daughter. [facility] Medical History COPD (chronic obstructive pulmonary disease) [...] 2.5 mg/3 mL 2.5 mg inhalation PRN MN N 09/22/24 Unknown History (0.083 %) solution [...] nonfocal and nonlateralizing. Const Vital Signs: 10/21/24 15:10/21/24 15:10/21/24 15:11 Temperature 98.4 F 98.4 F Temperature [...] pulmonary embolism. She had been transferred to [facility] at the end of last month, just [...] they found that when she was at [facility] and recently discharged, stating that it was [...] 70.7 H Lymph % (Auto) 16.1 L [place] % (Auto) 12.4 H Eos % (Auto) [...] mucous plug or other etiology Reading Location: [facility] Discharge Plan Triage Chief Complaint: Shortness of [...] directed. Follow-up with your oncologist. Print Language: Zambian Disposition Disposition: Home, Self Care What to do if you have Problems For any increased pain, shortness of breath, bleeding, nausea or vomiting, chestpain, or any unexpected problems, contact your Primary Care Provider. Call [facility] ([phone]) or report to the closest Emergency Room. Call 911 if necessary. 10/21/24 1645 <Electronically signed by Tay Dumont MD> Cosigner Signature (if applicable): CC: Dr. Tu Hector DO ~ Signed [facility] Work Phone: 1(486) 519-584804-03-2025 NoteDrJosh Kamara placed the recommended referral to [facility] medical oncology. Navigator spoke directly with accounts payable coordinator and medical oncology provider office and stressed urgency of appointment follow-up. appointment coordinator and medical oncology discussed directly with oncologist at [facility]. They are unable to offer Karina an appointment sooner than previously scheduled with her [place] oncology team. Navigator apologized to family and recommended they keep previously scheduled [place] oncology appointment. Patient will see Dr. Dunham 11/01/24 per daughter. Records have been sent to [place] and PET and MRI will also be sent when reports are final. Family has navigator contact info and will call if they need assistance.[facility] [id number] Telephone encounter Note* Telephone Encounter - Aixa Roche RCP - 10/19/2024 12:[address] Lacho Kamara placed the recommended referral to [facility] medical oncology. Navigator spoke directly with accounts payable coordinator and medical oncology provider office and stressed urgency of appointment follow-up. appointment coordinator and medical oncology discussed directly with oncologist at [facility]. They are unable to offer Karina an appointment sooner than previously scheduled with her [place] oncology team. Navigator apologized to family and recommended they keep previously scheduled [place] oncology appointment. Patient will see Dr. Dunham 11/01/24 per daughter. Records have been sent to [place] and PET and MRI will also be sent when reports are final. Family has navigator contact info and will call if they need assistance. [id number] Miscellaneous Notes* Telephone Encounter - Aixa Roche RCP - 10/19/2024 12:[address] Lacho Kamara placed the recommended referral to [facility] medical oncology. Navigator spoke directly with accounts payable coordinator and medical oncology provider office and stressed urgency of appointment follow-up. appointment coordinator and medical oncology discussed directly with oncologist at [facility]. They are unable to offer Karina an appointment sooner than previously scheduled with her [place] oncology team. Navigator apologized to family and recommended they keep previously scheduled [place] oncology appointment. Patient will see Dr. Dunham 11/01/24 per daughter. Records have been sent to [place] and PET and MRI will also be sent when reports are final. Family has navigator contact info and will call if they need assistance. * Telephone Encounter - Aixa Roche RCP - 10/18/2024 11:[address] referral for medical oncology to [facility] [place]. Navigator spoke with accounts payable coordinator and medical oncology office. She will discuss with oncology providers tomorrow morning to stress the urgency of appointment and attempt to expedite appointment. If unable to get patient in sooner than [place], navigator will advise patient to keep previously scheduled oncology follow-up. Daughter notified. * Telephone Encounter - Aixa Roche RCP - 10/18/2024 8:33 AM EDT Navigator received callback from patient's daughter Diaz. Patient's daughter reports that since we are able to expedite MRI and PET scan, oncology appointment has been moved up to 10/31/2024, but this is just tentative appointment as [place] and may not be back until 11/06/2024. Daughter would like Dr. Lacho Kamara to review and is willing to transfer care for oncology [facility] if pulmonary provider feels sooner oncology [...] to patient's regular oncologist, Dr. Dunham and release coordinator Rhiannon Georges in [place]. Patient has medical oncology appointment 11/06/24 but will try to move appointment sooner after PET scan. Navigator will send PET and MRI reports to providers once final . documented in this [facility]04-02-[address] for medical oncology to [facility]. Navigator spoke with accounts payable coordinator and medical oncology office. She will discuss with oncology providers tomorrow morning to stress the urgency of appointment and attempt to expedite appointment. If unable to get patient in sooner than [place], navigator will advise patient to keep previously scheduled oncology follow-up. Daughter notified.[facility]04-02-2025 Telephone encounter Note* Telephone Encounter - Aixa Roche RCP - 10/18/2024 11:[address] referral for medical oncology to [facility]. Navigator spoke with accounts payable coordinator and medical oncology office. She will discuss with oncology providers tomorrow morning to stress the urgency of appointment and attempt to expedite appointment. If unable to get patient in sooner than [place], navigator will advise patient to keep previously scheduled oncology follow-up. Daughter notified. [facility] [id number] Telephone encounter Note* Telephone Encounter - Aixa Roche RCP - 10/18/2024 8:33 AM EDT Navigator received callback from patient's daughter Diaz. Patient's daughter reports that since we are able to expedite MRI and PET scan, oncology appointment has been moved up to 10/31/2024, but this is just tentative appointment as [place] and may not be back until 11/06/2024. Daughter would like Dr. 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 [facility] [id number] Telephone encounter Note* Telephone Encounter - Aixa Roche RCP - 10/17/2024 2:10 PM EDT Navigator contacted patient's daughter by phone. They would like first available PET scan at any location. She is currently scheduled 10/30/24. Moved up PET scan appointment to Faxed records including path report, thoracentesis report, thoracic conference recommendations, CTSand pulmonary and cardiology consults to patient's regular oncologist, Dr. Dunham and release coordinator Rhiannon Georges in [place]. Patient has medical oncology appointment 11/06/24 but will try to move appointment sooner after PET scan. Navigator will send PET and MRI reports to providers once final . [facility] [id number] History of Present illness Narrative* Rachel Kamara DO - 10/17/2024 11:30 AM EDT [facility], Pulmonary Critical Care Medicine [address] [place] [address] Pulmonary Patient Visit 10/17/2024 Referring Physician: TU HECTOR DO Reason for Referral: SOB 10/03/24 History of Present Illness Karina Fernando is a 73 y.o. F with history of recurrent sinus infections, COPD on symbicort/albuterol,HTN who presented for a left hilar mass. Stated that in May she began having shortness of breath which worsened until she went to the ER in [place] in August. Found on CT with a left hilar mass, left upper lobe pleural-based mass, and moderate pericardial effusion. Evaluated by oncology and recommended for PET/CT, MRI brain, and biopsy. Established with pulmonology and had been planned forEBUS in [place] but canceled after TTE demonstrated a right [...] Previously normal 10/17/24 Patient was hospitalized in [place] ER for worsening pain and shortness of breath, unchanged. Transferred to [facility]. S/p bronchoscopy 10/09/[address] Mejia. [...] ARTHROPLASTY Bilateral VAGINAL DELIVERY 1971 VAGINAL DELIVERY 1973 Allergies Allergies Allergen Reactions Alendronate Muscle ache, [...] Dose Status acetaminophen (Tylenol) 325 MG tablet [id number] Take 2 tablets (650 mg) by mouth every 6 hours as needed for mild pain (1-3) or fever (For temp greater than 100.4 F (38 C)) for up to 10 days. Patient not taking: Reported on 10/09/2024 Emile Horne DO 10/16/24 2359 albuterol (Ventolin HFA) 108 (90 Base) MCG/ACT inhaler [id number] Yes Inhale 2 puffs every 4 hours as needed for wheezing or shortness of breath. Rachel Johnson DO Active ALPRAZolam (Xanax) 0.5 MG tablet [id number] Take 1 tablet (0.5 mg) by mouth 1 time for 1 dose. Take 30 minutes prior to MRI Lisandra Aldridge, [employer] 10/10/24 2359 Discontinued 10/17/24 1119 budesonide-formoterol (Symbicort) 80-4.5 MCG/ACT inhaler [id number] Inhale 2 puffs 2 times daily. Rachel Johnson DO Active busPIRone (Buspar) 10 MG tablet [id number] Yes Take 10 mg by mouth 3 times daily as needed. Historical Provider, Active cholecalciferol (Vitamin D-3) 25 MCG (1000 UT) capsule [id number] Yes Take 1,000 Units by mouth daily. Historical ProviderMD Active ipratropium-albuterol (Duo-Neb) 0.5-2.5 mg/3 mL nebulizer solution [id number] Yes Take 3 mL by nebulization every 6 hours. Historical Provider, Active loratadine (Claritin) 5 MG chewable tablet [id number] Yes Chew 5 mg daily. Historical ProviderMD Active Melatonin 2.5 MG chewable tablet [id number] Yes Chew Daily as needed. Historical ProviderMD Active Multiple Vitamin (multivitamin) capsule [id number] Yes Take 1 capsule by mouth daily. Historical ProviderMD Active [place]-3 Fatty Acids (OMEGA 3 500 PO) [id number] Yes Take by mouth daily. Historical ProviderMD Active oxyCODONE-acetaminophen (Percocet) 7.5-325 MG tablet [id number] Take 1 tablet by mouth every 6 hoursas needed for moderate pain (4-6) for up to 5 days. Emile Horne, DO 10/11/24 2359 traZODone (Desyrel) 100 MG tablet [id number] Yes Take 100 mg by mouth Nightly. Historical ProviderMD Active valACYclovir (Valtrex) 500 MG tablet [id number] Yes Take by mouth daily. Historical ProviderMD Active Vitamin E 268 MG (400 UNIT) capsule [id number] Yes Take by mouth daily. Historical ProviderMD Active Social History Social History Tobacco Use [...] Personally reviewed and interpreted Chest CTA 09/13/2024 ([place], report in media, images in PACS): Left hilar mass, left upper lobe pleural-based mass and large prevascular lymph node concerning for malignancy. Diffuse emphysematous changes. Moderate pericardial effusion. TTE 09/25/2024 ([place], report in media): LV systolic function is [...] Follow up: Patient will follow-up with her release coordinator and oncologist in [place] Please seek immediate medical attention for any worsening or worrying new symptoms. Patient education, benefits, risks, and precautions provided. Management plan was discussed in detail and in agreement. All questions or concerns answered to satisfaction and understood. Rachel Johnson DO 12:27 PM 10/17/24 Pulmonary and Critical Care Medicine documented in this [facility]04-01-2025 Instructions* Patient Instructions* Domenica Webb MA - 10/17/2024 11:30 AM EDT YOUR APPOINTMENT TODAY WAS WITH THE [facility], COPD CLINIC, PULMONARY AND SLEEP MEDICINE OFFICE. PLEASE CALL OUR OFFICE AT [phone] IF YOU HAVE NOT RECEIVED YOUR TEST [...] to make improvements. COVID-19 VACCINATION INFORMATION: PH. [phone] [email or web address] [facility] Central Scheduling [phone] [facility] Sleep Scheduling [phone] documented in this [facility]04-01-2025 History of Present illness Narrative* Aixa Roche [...] Dr. Evita Watson to do recommendations for maria CTC: SK MR#/Epic [id number] Oncologist: Dr. Mauri Chance ([place]) CTAP: /Age [birth year] 73 yo Rad Oncologist MRI: 10/17/24 Gender Female Vascular Technologist Sonographer: Dr. Lacho Kamara/ [facility] PET: 10/30/24 Smoking History: ? Former 40 pk yr Quit 05/2024 PCP: Dr. Tu Hector PFT: 09/25/24 @ [facility] ?Prospective []Retrospective Laborer [place]: Dr. Luis PATH: EBUS/TBBX 10/09/24; US Thora 10/06/24; Thyroid bx- [facility] 10/10/24 (path pending) Clinical Stage: unable to stage : @ least N2 dz Path Stage: T N M Barium Swallow 10/06/24 Brief Summary Known COPD was seen in ED at [facility] for eval of worsening SOB, Left shoulder, back, and lung pain, and dizziness. CT in [facility] noted a left hilar mass, LEYLA mass and adenopathy, R atrial mass, pericardial effusion and thyroid nodules. Evaluated by [facility] med onc and recommended to have PET, MRI and biopsy. Sent to [facility] CTS and arranged same day urgent appts with pulmonary and cardiology. Sent for EBUS and now presents to review imaging, path, staging and plan of care. * Also completed thyroid bx @ [facility] and path results are pending Recommendations: 1. [...] differ from this recommendation. documented in this [facility]03-27-2025 NotePatient: Karina Fernando Procedure Summary Date: 10/09/24 Room / Location: [place] [address] / [facility] Gastroenterology Anesthesia Start: 1439 Anesthesia Stop: 154 Procedure: ENDOBRONCHIAL ULTRASOUND WITH TRANSBRONCHIAL NEEDLE ASPIRATION. [...] discharged once all PACU criteria has been met.[facility] [id number] NotePatient: Karina Fernando Procedure Summary Date: 10/09/24 Room / Location: [place] [address] / [facility] Gastroenterology Anesthesia Start: 143 Anesthesia Stop: 154 Procedure: ENDOBRONCHIAL ULTRASOUND WITH TRANSBRONCHIAL NEEDLE ASPIRATION. [...] Allowed opportunity for questions and acknowledgement of understanding.[facility]03-25-2025 Radiology Diagnostic study note [facility] Imaging Services [address] [place] [address] [id number] FNA 1st Biopsy w/ US MR#: [id number] Acct: [id number] Name: KARINA FERNANDO Rep #: [id number] : 1950 F 73 From: Jonas James MD PCP: Dr. Tu Hector, Status: REG CLI Study:FNA 1st Biopsy w/ US Date of Exam: 10/10/24 Exam# [id number] Ordering Dr: Jackelyn Hector DO EXAM: Ultrasound [...] biopsy. Multinodular goiter is noted. Reading Location: [place] [address] CC: Dr. Tu Hector, DO ~ Implementation Director: Signed [facility]03-24-2025 NoteAirway Date/Time: 10/09/2024 2:43 PM Urgency: scheduled Airway not difficult General Information and Staff Patient location during procedure: Procedural Resident/DREDGE PUMPER: Mello Schneider CRNA Performed: DREDGE PUMPER Indications and Patient Condition Indications for airway [...] attempts: none Number of other approaches attempted: [address] [place], [place] [id number] Note [facility] Name: Karina Fernando Procedure Date: 10/09/2024 2:23 PM Gender: Female Date of : 1950 Age: 73 Admit Type: Outpatient Note Status: Finalized Attending MD: Cain Mejia MD, [id number] Procedure: Bronchoscopy Indications: Left hilar mass Findings: [...] and in the left hilum using a Neronote Expect 25 gauge needle and sent for [...] loss: Minimal Procedure Code(s): --- Professional --- 61482, Bronchoscopy, rigid or flexible, including fluoroscopic guidance, when performed; with transbronchial needle aspiration biopsy(s), trachea, main stem and/or lobar bronchus(i) 35666, 59, Bronchoscopy, rigid or flexible, including fluoroscopic guidance, when performed; with bronchial or endobronchial biopsy(s), single or multiple sites 37237, Bronchoscopy, rigid or flexible, including fluoroscopic guidance, when performed; with bronchial alveolar lavage 39486, Bronchoscopy, rigid or flexible, including fluoroscopic guidance, when performed; with brushing or protected brushings 42759, Bronchoscopy, rigid or flexible, including fluoroscopic guidance, when performed; with transendoscopic endobronchial ultrasound (EBUS) during bronchoscopic diagnostic or therapeutic intervention(s) for peripheral lesion(s) (List separately in addition to code for primary procedure[s]) Diagnosis Code(s): --- Profession (more content not included)...[facility]03-24-2025 Procedure note* Op Note - Cain Mejia MD - 10/09/2024 2:23 PM EDT [facility] Patient Name: Karina Fernando Procedure Date: 10/09/2024 2:23 PM Gender: Female Date of : 1950 Age: 73 Admit Type: Outpatient Note Status: Finalized Attending MD: Cain Mejia MD, [id number] Procedure: Bronchoscopy Indications: Left hilar mass Findings: [...] and in the left hilum using a Neronote Expect 25 gauge needle and sent for [...] loss: Minimal Procedure Code(s): --- Professional --- 82099, Bronchoscopy, rigid or flexible, including fluoroscopic guidance, when performed; with transbronchial needle aspiration biopsy(s), trachea, main stem and/or lobar bronchus(i) 60038, 59, Bronchoscopy, rigid or flexible, including fluoroscopic guidance, when performed; with bronchial or endobronchial biopsy(s), single or multiple sites 10441, Bronchoscopy, rigid or flexible, including fluoroscopic guidance, when performed; with bronchial alveolar lavage 32154, Bronchoscopy, rigid or flexible, including fluoroscopic guidance, when performed; with brushing or protected brushings 45515, Bronchoscopy, rigid or flexible, including fluoroscopic guidance, when performed; with transendoscopic endobronchial ultrasound (EBUS) during bronchoscopic diagnostic or therapeutic intervention(s) for peripheral lesion(s) (List separately in addition to code for primary procedure[s]) Diagnosis Code(s): --- Professional --- R91.8, Other nonspecific abnormal finding of lung field J98.4, Other disorders of lung J98.09, Other diseases of bronchus, not elsewhere classified R04.2, Hemoptysis CPT copyright 2021 [employer]. All rights reserved. The codes documented in this report are preliminary and upon record center coordinator review may be revised to meet current compliance requirements. Attending Participation: I personally performed the entire procedure. Cain Mejia MD 10/09/2024 3:46:37 PM This report has been signed electronically. Number of Addenda: 0 Note Initiated On: 10/09/2024 2:23 PM [id number] Miscellaneous Notes* Op Note - Cain Mejia MD - 10/09/2024 2:23 PM EDT [facility] Patient Name: Karina Fernando Procedure Date: 10/09/2024 2:23 PM Gender: Female Date of : 1950 Age: 73 Admit Type: Outpatient Note Status: Finalized Attending MD: Cain Mejia MD, [id number] Procedure: Bronchoscopy Indications: Left hilar mass Findings: [...] and in the left hilum using a Neronote Expect 25 gauge needle and sent for [...] loss: Minimal Procedure Code(s): --- Professional --- 61418, Bronchoscopy, rigid or flexible, including fluoroscopic guidance, when performed; with transbronchial needle aspiration biopsy(s), trachea, main stem and/or lobar bronchus(i) 02149, 59, Bronchoscopy, rigid or flexible, including fluoroscopic guidance, when performed; with bronchial or endobronchial biopsy(s), single or multiple sites 26144, Bronchoscopy, rigid or flexible, including fluoroscopic guidance, when performed; with bronchial alveolar lavage 10634, Bronchoscopy, rigid or flexible, including fluoroscopic guidance, when performed; with brushing or protected brushings 35262, Bronchoscopy, rigid or flexible, including fluoroscopic guidance, when performed; with transendoscopic endobronchial ultrasound (EBUS) during bronchoscopic diagnostic or therapeutic intervention(s) for peripheral lesion(s) (List separately in addition to code for primary procedure[s]) Diagnosis Code(s): --- Professional --- R91.8, Other nonspecific abnormal finding of lung field J98.4, Other disorders of lung J98.09, Other diseases of bronchus, not elsewhere classified R04.2, Hemoptysis CPT copyright 2021 [employer]. All rights reserved. The codes documented in this report are preliminary and upon record center coordinator review may be revised to meet current compliance requirements. Attending Participation: I personally performed the entire procedure. Cain Mejia MD 10/09/2024 3:46:37 PM This report has been signed electronically. Number of Addenda: 0 Note Initiated On: 10/09/2024 2:23 PM documented in this [facility]03-24-2025 History and physical note* Cain Mejia MD [...] lymph nodes, sampling/staging, sampling of hilar mass. Phorest Onzo Work Phone: 1(239) 198-940503-24-2025 NoteChief Complaint: left hilar mass History of [...] lymph nodes, sampling/staging, sampling of hilar mass. [facility]03-24-2025 History and physical note* Cain Mejia [...] sampling of hilar mass. documented in this [facility]03-24-2025 NotePatient: Karina Fernando Procedure Information Date/Time: 10/09/24 1330 Procedure: ENDOBRONCHIAL ULTRASOUND WITH TRANSBRONCHIAL NEEDLE ASPIRATION. POSSIBLE ENDOBRONCHIAL BIOPSIES, NEEDLE ASPIRATION, AND BRUSHINGS. - Rad, path, total time: 90 min Location: [place] [address] / [facility] Gastroenterology Providers: Cain Mejia MD Relevant Problems [...] any previous visit. Equipment Requests: [facility] Plan of care note * Care Plan [...] monitored and maintained or improved Outcome: Completed [id number] Miscellaneous Notes* Care Plan - Dannielle Lawson [...] fall injury Outcome: Progressing documented in this [facility]03-21-2025 NoteRTHOMEO2[[id number]] Respiratory Therapy Home O2 Progress Note O2 [...] home Y/N = Y DME Notified Y [facility]03-21-2025 History of Present illness Narrative* Sean Chen RRT - 10/06/2024 3:30 PM EDT Images from the original note were not included. RTHOMEO2[[id number]] Respiratory Therapy Home O2 Progress Note O2 [...] original note were not included. PHYSICAL THERAPY [facility] Initial Evaluation Name/MRN: Karina Fernando ([id number]) Evaluation Date: 10/06/2024 Date of : 1950 Admission Date: 10/05/2024 8:10 PM Age: 73 y.o. Room/Bed: W4-439/W4439 A Discharge Recommendation: Home with Home health PT Assessment IMPRESSION: Karina is a 73 y.o. female with past medical history of COPD previous smoker, asthma, Hiatal hernia, Recent discovery of lung mass and thyroid nodules. 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 Pt reports mobility [...] Responsibilities: Independent Receives Help From: Family Active Finance Analyst: Prior Level of Function IND with mobility without device Objective Lower Extremity Assessment AROM: WNL PROM: WNL Strength: WNL Sensation: WNL Balance: Not assessed this session Bed Mobility: Supine to sit: Independent Sit to supine: Independent Transfers Sit to stand: Independent Stand to sit: Independent Ambulation Pt ambulates 50ft with multiple turns without device with SBA. As pt becomes more fatigued HEARING SPECIALIST provided due to increased lateral sway. Verbal [...] of Care supervision is transferred to a [facility] Therapy Services Physical Therapist. Goals and/or treatment plan was established in collaboration with patient/family/other representatives. * Charis Barron [facility]RIM FIRE PRIMING OPERATOR - 10/06/2024 8:43 AM EDT Images from the original note were not included. Speech-Language Pathology SPEECH LANGUAGE PATHOLOGY [facility] Modified Barium Swallow Study Patient Name: Karina Fernando Evaluation Date: 10/06/2024 Date of : 1950 Admission Date: 10/05/2024 8:10 PM Age: 73 y.o. Room/Bed: [facility] A IMPRESSION: The patient presents with mild [...] contrast enters the airway. 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 Please reconsult should [...] and other work up. She presented to [facility] ED - with worsening left shoulder, back [...] and was sent in for management to [facility]. She has a history of hiatal [...] Unable to obtain labs and imaging from [facility] - Was told she has a complete [...] Goal: To have some coffee Therapy Time RIM FIRE PRIMING OPERATOR Individual Minutes Time In: 0840 Time Out: 0900 Minutes: 20 YOANA Jean documented in this [facility]03-21-2025 NoteHospitalist Discharge Summary Karina Fernando : 1950 [...] and other work up. She presented to [place] ED - with worsening left shoulder, back [...] and was sent in for management to [facility]. Seen by pulm. Pleural effusion was [...] Your Medications These medications were sent to [facility] [address], [place] (more content not included)...[facility]03-21-2025 Hospital Discharge instructions* Discharge Instr - Activity* Emile Horne DO - 10/06/2024 3:08 PM EDT As tolerated * Attachments The following attachments cannot be sent through Care Everywhere. * Pleural Effusion Discharge Instructions (Zambian) * Shortness of Breath (Dyspnea) Discharge Instructions (Zambian) [id number] Note* Care Coordination - Lisandra Thibodeaux RN - 10/06/2024 12:55 PM EDT Pt adm for tx/ eval of SOB- found to have pleural effusion. RA currently. US guided thoracentesis, XR chest and barium swallow completed. Spoke with pt and family, introduced self and roll. Pt plans to return home- no needs. [id number] Note* Care Coordination - Lisandra Thibodeaux RN - 10/06/2024 12:55 PM EDT Pt adm for tx/ eval of SOB- found to have pleural effusion. RA currently. US guided thoracentesis, XR chest and barium swallow completed. Spoke with pt and family, introduced self and roll. Pt plans to return home- no needs. [facility]blePlbonc09-39-2531 NotePHYSICAL THERAPY [facility] Initial Evaluation Name/MRN: Karina Fernando ([id number]) Evaluation Date: 10/06/2024 Date of : 1950 Admission Date: 10/05/2024 8:10 PM Age: 73 y.o. Room/Bed: W4-439/W4-439 A Discharge Recommendation: Home with Home health PT Assessment IMPRESSION: Karina is a 73 y.o. female with past medical history of COPD previous smoker, asthma, Hiatal hernia, Recent discovery of lung mass and thyroid nodules. 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 Pt reports mobility [...] Responsibilities: Independent Receives Help From: Family Active Finance Analyst: Prior Level of Function IND with mobility without device Objective Lower Extremity Assessment AROM: WNL PROM: WNL Strength: WNL Sensation: WNL Balance: Not assessed this session Bed Mobility: Supine to sit: Independent Sit to supine: Independent Transfers Sit to stand: Independent Stand to sit: Independent Ambulation Pt ambulates 50ft with multiple turns without device with SBA. As pt becomes more fatigued HEARING SPECIALIST provided due to increased lateral sway. Verbal [...] of Care supervision is transferred to a [facility] Services Physical Therapist. Goals and/or treatment plan was established in collaboration with patient/family/other representatives.[facility]03-21-2025 Nurse Note* Monico Islas RN - 10/06/2024 [...] given via telephone to Fab Lawson RN. [id number] Nurse Note* Monico Islas RN - 10/06/2024 [...] to Fab Lawson RN. documented in this [facility]03-21-2025 NoteProblem: Pain - Adult Goal: Verbalizes/displays adequate comfort level or baseline comfort level Outcome: Progressing Problem: Safety - Adult Goal: Free from fall injury Outcome: [facility] Plan of care note* Care Plan - Pravin Duval RN - 10/06/2024 1:01 AM EDT Problem: Pain - Adult Goal: Verbalizes/displays adequate comfort level or baseline comfort level Outcome: Progressing Problem: Safety - Adult Goal: Free from fall injury Outcome: Progressing [id number] History and physical note* Sushila Tam MD [...] and other work up. She presented to [facility] ED - with worsening left shoulder, back [...] and was sent in for management to [facility]. She has a history of hiatal [...] Unable to obtain labs and imaging from [place] - Was told she has a complete [...] capsule Take 1,000 Units by mouth daily. Azblefkyunx-Dtmgigsls-Wwseos (Trelegy Ellipta) 100-62.5-25 MCG/ACT aerosol powder Inhale [...] capsule Take 1 capsule by mouth daily. [place]-3 Fatty Acids (OMEGA 3 500 PO) Take [...] suspicion of a metastatic process. Will need RIM FIRE PRIMING OPERATOR and MBSS for assessment. - Lightheadedness upon [...] as no imaging on file given at [facility]. Follow up labs with day team. Thyroid [...] Pending the following - s/p pulmonology and RIM FIRE PRIMING OPERATOR evaluation Total time spent (which include face [...] - DO NOT do CPR, intubation] [_] [DNR-GENERALIST - Comfort care only] [_] DNR form [was/was not] signed Summary of discussion: The patient health care POA/ surrogate is the following: Catherine Cordova and nAdrew Dozier. [Condition that instigated the ACP on [...] Sushila Tam MD Division of Hospitalist Medicine [id number] NoteAttending History and Physical Admit Date: 10/05/2024 [...] and other work up. She presented to [place] ED - with worsening left shoulder, back [...] and was sent in for management to [facility]. She has a history of hiatal [...] Unable to obtain labs and imaging from [place] - Was told she has a complete [...] capsule Take 1,000 Units by mouth daily. Wasozoatyvt-Leoaiaxnk-Qdwrrt (Trelegy Ellipta) 100-62.5-25 MCG/ACT aerosol powder Inhale [...] capsule Take 1 capsule by mouth daily. [place]-3 Fatty Acids (OMEGA 3 500 PO) Take [...] Allergies: Allergies Allergen Re (more content not included)...[facility]03-20-2025 History and physical note* Sushila Tam MD [...] and other work up. She presented to [place] ED - with worsening left shoulder, back [...] and was sent in for management to [facility]. She has a history of hiatal [...] Unable to obtain labs and imaging from [place] - Was told she has a complete [...] capsule Take 1,000 Units by mouth daily. Wydwxvqhmml-Hhyuasaar-Rnnsfm (Trelegy Ellipta) 100-62.5-25 MCG/ACT aerosol powder Inhale [...] capsule Take 1 capsule by mouth daily. [place]-3 Fatty Acids (OMEGA 3 500 PO) Take [...] suspicion of a metastatic process. Will need RIM FIRE PRIMING OPERATOR and MBSS for assessment. - Lightheadedness upon [...] as no imaging on file given at [facility]. Follow up labs with day team. Thyroid [...] Pending the following - s/p pulmonology and RIM FIRE PRIMING OPERATOR evaluation Total time spent (which include face [...] - DO NOT do CPR, intubation] [_] [DNR-GENERALIST - Comfort care only] [_] DNR form [...] Sushila Tam MD Division of Hospitalist Medicine [facility] documented in this [facility]03-20-2025 Discharge summary [facility] Medical Records Department [address] [place] [address] Emergency Department Summary 10/05/24 MR#: [id number] Acct: [id number] Name: KARINA FERNANDO Rep #:[id number] : 1950 73 From: Marty Woods DO [...] she tries to get up and walk. [facility] Medical History COPD (chronic obstructive pulmonary disease) [...] 2.5 mg/3 mL 2.5 mg inhalation PRN [place] N 09/22/24 Unknown History (0.083 %) solution [...] following commands and that she was at [facility] year is 2024 Skin: Warm, dry, intact [...] Will attempt [facility] as she has a EBUS scheduled on Wednesday. Discussed case with hospitalist at [facility] Dr. Rodriguez who accept patient for transfer. [...] % (Auto) 63.2 Lymph % (Auto) 23.3 [place] % (Auto) 12.9 H Eos % (Auto) [...] 2. Cardiomegaly with mild congestion. Reading Location: [facility] Chest CTA 10/05/24 15:40 IMPRESSION: 1. No pulmonary embolism is identified. Some of the distal pulmonary arteries cannot be evaluated due to suboptimal opacification. 2. 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 Associated atelectasis of the lingula, new since prior exam. 3. Moderate esophageal hiatal hernia. 4. 2.5 cm subpleural nodule of the left lower lobe, unchanged. Reading Location: [facility] Discharge Plan Triage Chief Complaint: Shortness of [...] DO [Primary Care Provider] - Print Language: Zambian Disposition Disposition: DC/Tx to Another Type of HCF What to do if you have Problems For any increased pain, shortness of breath, bleeding, nausea or vomiting, chestpain, or any unexpected problems, contact your Primary Care Provider. Call [facility] ([phone]) or report tothe closest Emergency Room. Call 911 if necessary. 10/05/24 1720 Cosigner Signature (if applicable): CC: Dr. Tu Hector DO ~ Signed [facility]03-20-2025 Radiology Diagnostic study note [facility] Imaging Services [address] [place] [address] CTA Chest W/WO Contrast MR#: [id number] Acct: [id number] Name: KARINA FERNANDO Rep #: [id number] : 1950 F 73 From: Talya Daniel MD PCP: Dr. Tu Hector DO Status: REG ER Study:CTA Chest W/WO Contrast Date of Exam: 10/05/24 Exam# [id number] Ordering Dr: Pedro Luis Woods DO EXAM: [...] the left lower lobe, unchanged. Reading Location: [facility] CC: Dr. Tu Hector DO; Dr. Marty Woods DO ~ Implementation Director: Signed [facility]03-20-2025 Radiology Diagnostic study note [facility] Imaging Services [address] [place] [address] Chest PA and Lateral MR#: [id number] Acct: [id number] Name: KARINA FERNANDO Rep #: [id number] : 1950 F 73 From: Talya Daniel MD PCP: Dr. Tu Hector DO Status: REG ER Study:Chest PA and Lateral Date of Exam: 10/05/24 Exam# [id number] Ordering Dr: Pedro Luis Woods DO EXAM: [...] 2. Cardiomegaly with mild congestion. Reading Location: [facility] CC: Dr. Tu Hector DO; Dr. Marty Woods DO ~ Implementation Director: Signed [facility]03-20-2025 Discharge summary Author Marty Woods [facility] Note Date/Time October 05, 2024 5:2 0pm [facility] Medical Records Department [address] [place] [address] Emergency Department Summary 10/05/24 MR#: [id number] Acct: [id number] Name: KARINA FERNANDO Rep #:[id number] : 1950 73 From: Marty Woods DO [...] she tries to get up and walk. [facility] Medical History COPD (chronic obstructive pulmonary disease) [...] 2.5 mg/3 mL 2.5 mg inhalation PRN [place] N 09/22/24 Unknown History (0.083 %) solution [...] following commands and that she was at [facility] year is 2024 Skin: Warm, dry, intact [...] Will attempt to transfer the patient to [facility] as she has a EBUS scheduled on Wednesday. Discussed case with hospitalist at [facility] Dr. Rodriguez who accept patient for transfer. [...] % (Auto) 63.2 Lymph % (Auto) 23.3 [place] % (Auto) 12.9 H Eos % (Auto) [...] 2. Cardiomegaly with mild congestion. Reading Location: [facility] Chest CTA 10/05/24 15:40 IMPRESSION: 1. No pulmonary embolism is identified. Some of the distal pulmonary arteries cannot be evaluated due to suboptimal opacification. 2. 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 Associated atelectasis of the lingula, new since prior exam. 3. Moderate esophageal hiatal hernia. 4. 2.5 cm subpleural nodule of the left lower lobe, unchanged. Reading Location: [facility] Discharge Plan Triage Chief Complaint: Shortness of [...] DO [Primary Care Provider] - Print Language: Zambian Disposition Disposition: DC/Tx to Another Type of HCF What to do if you have Problems For any increased pain, shortness of breath, bleeding, nausea or vomiting, chestpain, or any unexpected problems, contact your Primary Care Provider. Call [facility] ([phone]) or report to the closest Emergency Room. Call 911 if necessary. 10/05/24 1720 <Electronically signed by Marty Woods DO> Cosigner Signature (if applicable): CC: Dr. Tu Hector, ~ Signed [facility] Work Phone: 1(440) 744-446003-20-2025 Telephone encounter Note* Telephone Encounter - Sydnee Sy - 10/05/2024 1:52 PM EDT Patient is active with Donald Centeno for EBUS/ENB 08919/09382 per code check [id number] Miscellaneous Notes* Telephone Encounter - Sydnee Sy - 10/05/2024 1:52 PM EDT Patient is active with Donald Centeno for EBUS/ENB 69680/49299 per code check * Telephone Encounter - Ronda Malloy RN - 10/05/2024 1:10 PM EDT Instructions EBUS Endobronchial Ultrasound Procedure Date: October 09, 2024 Time: 1:30 PM Arrival Time: 12:00 PM Physician: Dr. Mejia Location: [facility], Endoscopy Department, [address] [place] [address] Please arrive at the hospital registration desk 1.5 hours prior to scheduled start of procedure. Make sure you have a known responsible adult to transport you home from the hospital as you will not be permitted to drive. Your procedure will be cancelled if you do not have someone to take you home. You can only use a taxi/bus/Uber/medical transporter radiology if you have a known responsible adult to go with you. You may use [employer]. Each patient will receive one validation ticket for [employer]. Do not drink alcohol before [...] at 11:[address] Johnson at [address], [place], [address] to discuss results. Things to look for post procedure: Fever greater than 101F Coughing up/spitting up bright red blood greater than a teaspoon Increased Shortness of breath/distress and/ or sudden onset of chest pain (call 911 and head to [facility] emergency department) You will be sent home [...] If you have any questions, please call: [phone] RN Clinical Coordinator [facility] [address] [place] [address], [address] [place], [place] [phone] Procedure placed on physician's outlook calendar? yes [...] Patient voices understanding? Yes documented in this [facility]03-20-2025 Telephone encounter Note* Telephone Encounter - Ronda Malloy RN - 10/05/2024 1:10 PM EDT Instructions EBUS Endobronchial Ultrasound Procedure Date: October 09, 2024 Time: 1:30 PM Arrival Time: 12:00 PM Physician: Dr. Mejia Location: [facility], Endoscopy Department, [address] [place] [address] Please arrive at the hospital registration desk 1.5 hours prior to scheduled start of procedure. Make sure you have a known responsible adult to transport you home from the hospital as you will not be permitted to drive. Your procedure will be cancelled if you do not have someone to take you home. You can only use a taxi/bus/Uber/medical transporter radiology if you have a known responsible adult to go with you. You may use [employer]. Each patient will receive one validation ticket for [employer]. Do not drink alcohol before [...] at 11:[address] Johnson at [address] [place] [address], [facility] to discuss results. Things to look for post procedure: Fever greater than 101F Coughing up/spitting up bright red blood greater than a teaspoon Increased Shortness of breath/distress and/ or sudden onset of chest pain (call 911 and head to [facility] emergency department) You will be sent home [...] If you have any questions, please call: [phone] RN Clinical Coordinator [facility] [address] [place] [address], [address] [place], [place] [phone] Procedure placed on physician's outlook calendar? yes [...] with patient? yes Patient voices understanding? Yes [id number] Telephone encounter Note* Telephone Encounter - Aixa Roche RCP - 10/03/2024 3:12 PM EDT Navigator contacted the office of Rhiannon Georges CNP at [facility]. Requested pulmonary function test and will scanned to media tab when available. [id number] Miscellaneous Notes* Telephone Encounter - Aixa Roche RCP - 10/03/2024 3:12 PM EDT Navigator contacted the office of Rhiannon Georges CNP at [facility]. Requested pulmonary function test and will scanned to media tab when available. * Telephone Encounter - Aixa Roche RCP - 10/03/2024 1:27 PM EDT Discussed with Dr. Johnson during C appt. Patient has a pericardial effusion and cardiac lesion. She has been lightheaded for a few days and expedited cardiology eval is recommended. Spoke with cardiology office at [phone] and arranged for appt with Dr. Luis [...] consideration. Verified prior images and reports from [facility] are available for review in PACS.Scanned imaging reports including CT chest imaging, thyroid imaging and provider office notes from medical oncology and pulmonary in [place] to the media tab. Patient will see Dr. Lacho Kamara now to further evaluate left hilar mass and adenopathy firstnoted on CT imaging 09/13/2024 in [place]. documented in this [facility]03-18-2025 History of Present illness Narrative* Wilfrido Luis DO - 10/03/2024 2:30 PM EDT Images from the original note were not included. [facility] Note DATE of SERVICE:10/03/24 TIME of SERVICE: 2:41 PM Chief Complaint: Chief Complaint Patient presents with New Patient Shortness of Breath >1yr History of PresentIllness: Karina Fernando is a 73 y.o. female with a long history of tobacco use who was evaluated for shortness of breath. The workup in [facility] revealed a very large (6.2 x 4.7 cm) hilar mass. She was seen by pulmonary and scheduled for a biopsy also seen by Dr. Fortune. In the meantime however an echocardiogram that was done at [facility] reported a small pericardial effusion and a mass on the patient's right intra-atrial septum. Her biopsy was canceled and she was referred here to cardiology for an evaluation. I reviewed the echocardiogram that was done at [facility], there is a very small hemodynamically insignificant [...] Units by mouth daily., Disp: , Rfl: Ccyuiulkkhc-Rtiepqgkk-Yebaar (Trelegy Ellipta) 100-62.5-25 MCG/ACT aerosol powder , [...] capsule by mouth daily., Disp: , Rfl: [place]-3 Fatty Acids (OMEGA 3 500 PO), Take [...] pericardial effusion with RA collapse. 09/13/24- CTA [facility] Assessment and Plan: BSmall hemodynamically insignificant [...] hesitate to contact me documented in this [facility]SReg[facility] [id number] Telephone encounter Note* Telephone Encounter - Aixa Roche RCP - 10/03/2024 1:27 PM EDT Discussed with Dr. Johnson during [facility] appt. Patient has a pericardial effusion and cardiac lesion. She has been lightheaded for a few days and expedited cardiology eval is recommended. Spoke with cardiology office at [phone] and arranged for appt with Dr. Luis at [address] [place] [address] Johnson will send patient right over. [facility]Asepwc05-77-3704 Telephone encounter Note* Telephone Encounter - Aixa [...] consideration. Verified prior images and reports from [facility] are available for review in PACS.Scanned imaging reports including CT chest imaging, thyroid imaging and provider office notes from medical oncology and pulmonary in [place] to the media tab. Patient will see Dr. Lacho Kamara now to further evaluate left hilar mass and adenopathy firstnoted on CT imaging 09/13/2024 in [place]. [id number] History of Present illness Narrative* Rachel Kamara DO - 10/03/2024 12:15 PM EDT [facility], Pulmonary Critical Care Medicine [address] [place] [address] Pulmonary Patient Visit - New 10/03/2024 Referring Physician: TU HECTOR DO Reason for Referral: SOB History of Present Illness Karina Fernando is a 73 y.o. F with history of recurrent sinus infections, COPD on symbicort/albuterol,HTN who presented for a left hilar mass. Stated that in May she began having shortness of breath which worsened until she went to the ER in [place] in August. Found on CT with a left hilar mass, left upper lobe pleural-based mass, and moderate pericardial effusion. Evaluated by oncology and recommended for PET/CT, MRI brain, and biopsy. Established with pulmonology and had been planned forEBUS in [place] but canceled after TTE demonstrated a right [...] acetaminophen (Tylenol Extra Strength) 500 MG tablet [id number] Yes Take by mouth. Slick Garcia MD Not Taking Active albuterol (Ventolin HFA) 108 (90 Base) MCG/ACT inhaler [id number] Inhale 2 puffs every 4 hours as needed for wheezing or shortness of breath. Rachel Kamara DO Active busPIRone (Buspar) 10 MG tablet [id number] Yes Take 10 mg by mouth 3 times daily as needed. Slick ProviderMD Taking Active cetirizine (ZyrTEC) 10 MG tablet [id number] Yes Take 10 mg by mouth daily. Slick ProviderMD Taking Active cholecalciferol (Vitamin D-3) 25 MCG (1000 UT) capsule [id number] Yes Take 1,000 Units by mouth daily. Slick ProviderMD Active Yixaaifyoas-Xetxlcbbd-Mihuds (Trelegy Ellipta) 100-62.5-25 MCG/ACT aerosol powder [id number] Inhale 1 Inhalation daily. Rachel Johnson DO Active gabapentin (Neurontin) 300 MG capsule [id number] Yes Take 300 mg by mouth 3 times daily. Slick ProviderMD Not Taking Active hydroCHLOROthiazide (HYDRODiuril) 25 MG tablet [id number] Yes Take 25 mg by mouth daily. Slick ProviderMD Taking Active loratadine (Claritin) 5 MG chewable tablet [id number] Yes Chew 5 mg daily. Historical ProviderMD Active Melatonin 2.5 MG chewable tablet [id number] Yes Chew Daily as needed. Historical MD Jose Not Taking Active meloxicam (Mobic) 15 MG tablet [id number] Yes Take by mouth daily. Historical MD Jose Not TakingActive Multiple Vitamin (multivitamin) capsule [id number] Yes Take 1 capsule by mouth daily. Slick Garcia MD Active [place]-3 Fatty Acids (OMEGA 3 500 PO) [id number] Yes Take by mouth daily. Slick Garcia MD Taking Active oxyCODONE-acetaminophen (Percocet) 5-325 MG tablet [id number] Yes Silck Garcia MD Taking Active simvastatin (Zocor) 20 MG tablet [id number] Yes Take 20 mg by mouth Nightly. Slick Garcia MD Taking Active traZODone (Desyrel) 100 MG tablet [id number] Yes Take 100 mg by mouth Nightly. Slick Garcia MD Taking Active valACYclovir (Valtrex) 500 MG tablet [id number] Yes Take by mouth daily. Slick Garcia MD Not Taking Active Vitamin E 268 MG (400 UNIT) capsule [id number] Yes Take by mouth daily. Slick Garcia MD Taking Active Social History Social History Tobacco [...] Personally reviewed and interpreted Chest CTA 09/13/2024 (Priya, report in media, images in PACS): Left hilar mass, left upper lobe pleural-based mass and large prevascular lymph node concerning for malignancy. Diffuse emphysematous changes. Moderate pericardial effusion. TTE 09/25/2024 (Priya, report in media): LV systolic function is [...] proceed with bronchoscopy. -Evaluated by CTS Dr. Fortune this morning, PET/CT and MRI brain pending [...] and Critical Care Medicine documented in this [facility]03-18-2025 Instructions* Patient Instructions* Jay Zimmerman MA - 10/03/2024 12:15 PM EDT YOUR APPOINTMENT TODAY WAS WITH THE [facility], COPD CLINIC, PULMONARY AND SLEEP MEDICINE OFFICE. PLEASE CALL OUR OFFICE AT [phone] IF YOU HAVE NOT RECEIVED YOUR TEST [...] to make improvements. COVID-19 VACCINATION INFORMATION: PH. [phone] HEALTH.ORG/CORONAVIRUS/VACCINE [facility] Central Scheduling [phone] [facility] Sleep Scheduling [phone] documented in this [facility]03-18-2025 NoteOrders Placed This Encounter Procedures MR brain [...] Number of Occurrences: 1 Standing Expiration Date: 10/03/2025[facility] [id number] History of Present illness Narrative* Silvio Fortune MD - 10/03/2024 11:15 AM EDT Images from the original note were not included. [facility] [address] [facility] [address] Dept: [phone] Dept Loc: [phone] Visit type: New Reason for Visit: AP [...] effusion. Per note, pt had presented to [place] ED in August 2023 for dyspnea. CTA [...] tablet, Take by mouth., Disp: , Rfl: [place]-3 Fatty Acids (OMEGA 3 500 PO), Take [...] This note may have been dictated using [employer] Medical Practice Edition 2.6 and/or Encarnate Voice Recognition Feature. The document was proofread, however unrecognized voice recognition air and missile defense crewmember errors may be present. documented in this [facility]03-13-2025 Evaluation note* Diagnosis Onset Date Resolution Status [...] Mediastinal lymphadenopathy acute January 02, 2025 9:04am [facility] Work Phone: 1(204) 442-974503-13-2025 Evaluation note* Diagnosis Onset Date Resolution Status [...] 172024 8:07am Small cell lung cancer acute 2024 8:07am Mediastinal lymphadenopathy acute January 02, 2025 9:04am Mediastinal lymphadenopathy acute January 23, 2025 9:03am [facility] Work Phone: 1(630) 281-860403-04-2025 Note* Exam Date Time Procedure Performing Provider Status 09/19/24 12:06 PM US Thyroid ANDREW CONKLIN DO; Auth (Verified) [id number] ORIGINAL EXAMINATION: ULTRASOUND OF THE THYROID WITH [...] Date: 09/19/2024 1:04:03 PM Ordering Provider: JOSELIN [facility]03-03-2025 Evaluation note* Diagnosis Onset Date Resolution Status Admit Date Mediastinal lymphadenopathy acute September 18, 2024 12:35pm Lung mass inactive September 18 12:35pm Mediastinal lymphadenopathy acute September 22, 2024 8:56am Shortness of breath acute September 22, 2024 8:56am Shortness of breath acute September 28, 2024 9:34am [facility] Work Phone: 1(362) 160-902103-03-2025 Evaluation note* Diagnosis Onset Date Resolution Status Admit Date Mediastinal lymphadenopathy acute September 18, 2024 12:35pm Lung mass inactive September 18 12:35pm Mediastinal lymphadenopathy acute September 22, 2024 8:56am Shortness of breath acute September 22, 2024 8:56am Shortness of breath acute September 28, 2024 9:34am 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 October 25, 2024 2:36pm Encounter for education acute A pri2024 3:46pm 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 October [...] Mediastinal lymphadenopathy acute December 12, 2024 8:07am [facility] Work Phone: 1(914) 356-300203-03-2025 Evaluation note* Diagnosis Onset Date Resolution Status [...] 172024 8:07am Small cell lung cancer acute 2024 8:07am Mediastinal lymphadenopathy acute January 02, 2025 9:04am [facility] Work Phone: 1(438) 151-630802-27-2025 Evaluation + Plan note Future Scheduled Tests Laboratory* Basic Metabolic Panel 09/14/24 * Thyroid Stimulating Hormone 02/02/24 * Lipid Profile 09/14/24 * Lipid Profile 02/02/24 * Hepatitis C Antibody IgG 02/02/24 * Vitamin D Level 09/14/24 * Vitamin D Level 02/02/24 * Complete Metabolic Panel 02/02/24 [facility] 02-16-2025 Telephone encounter Note* Telephone Encounter - Kalie Gonzalez MA - 09/03/2024 8:36 AM EST Patient given results and verbalized understanding of instructions given. Kalie Gonzalez MA [facility]02-16-2025 Telephone encounter Note* Telephone Encounter - Kalie Gonzalez MA - 09/03/2024 8:36 AM EST ----- Message from Renetta Villalobos APRN.NURSING FACULTY sent at 09/03/2024 8:12 AM EST ----- Please advise patient the COVID/flu/RSV test was negative. [facility]02-16-2025 Miscellaneous Notes* Telephone Encounter - Kalie Gonzalez MA - 09/03/2024 8:36 AM EST Patient given results and verbalized understanding of instructions given. Kalie Gonzalez MA * Telephone Encounter - Kalie Gonzalez MA - 09/03/2024 8:36 AM EST ----- Message from Renetta Villalobos APRN.NURSING FACULTY sent at 09/03/2024 8:12 AM EST ----- Please advise patient the COVID/flu/RSV test was negative. documented in this encounterMet[facility]02-15-2025 JfvvLCPB-WNO-6 (AGENT OF COVID-19) RNA: Not detected INFLUENZA A RNA: Not detected INFLUENZA B RNA: Not detected RESPIRATORY SYNCYTIAL VIRUS (RSV) RNA: Not detectedTrumbull Regional Medical CenterComment on above:Performed By: #### [id number]- 1 #### [facility] CLIA [id number] [address] [place], [place] [address]-15-2025 NoteHNO ID: [id number] Author: DUNG LITTLEJOHN MD Service: ? Author [...] Patient reports remotely wolff (more content not included)...[facility]02-15-2025 History of Present illness Narrative* Dung Littlejohn [...] PCP. Dung Littlejohn MD documented in this encounterMetro[facility] Center11-13-2024 NoteHNO ID: [id number] Author: SERGIO MOHR PA-C Service: ? Author Type: Physician Electrical Products Sales Engineer Type: Progress Notes Filed: 05/31/2024 17:48 Note Text: This note was created using Genetic Technologiesriter. Subjective Karina Fernando is a 73 year [...] 12/15/2006 Years since quittin.4 (more content not included)...To Clinic [id number] History of Present illness Narrative* Sergio Mohr PA-C - 05/31/2024 5:45 PM EST This note was created using Genetic Technologiesriter. Subjective Karina Fernando is a 73 year [...] FRONTAL/LAT Sergio Mohr PA-C documented in this encounterMetro[facility] Center11-13-2024 History of Present illness Narrative* Rio Osorio RT(R) - 05/31/2024 5:00 PM EST Radiology Service [...] PRESENTS WITH AN IMPLANTABLE OR ATTACHED MANAGER OF HEALTH: No RADIOLOGY DEPARTMENT: General X-ray: Exam(s) Completed: Chest X-Ray PERIPHERAL IV DATA: Not applicable SIGNED BY: RT Yoko(R) May 31, 2024 5:12 PM documented in this encounterMetrohealth [facility] Center11-13-2024 NoteHNO ID: [id number] Author: RIO OSORIO RT(R) Service: ? Author Type: Surgery Aide Type: Progress Notes Filed: 05/31/2024 17:17 Note [...] PRESENTS WITH AN IMPLANTABLE OR ATTACHED MANAGER OF HEALTH: No RADIOLOGY DEPARTMENT: General X-ray: Exam(s) Completed: Chest X-Ray PERIPHERAL IV DATA: Not applicable SIGNED BY: RT Yoko(R) May 31, 2024 5:12 [facility]08-05-2024 Hospital Discharge instructions Patient Education 02/21/2024 14:47:01 [...] for signs of illness. If the pet mend worker won t allow this, contact your local [...] stopped after 5 minutes of firm pressure [phone] [employer]. [address] [place] [address]. All rights reserved. This information is not intended as a substitute for professional medical care. Always follow yourhealthcare professional's instructions. Follow Up Care 02/21/2024 14:22:21 With:TU HECTOR DO Address: [address] [place] [phone] When:2-4 days [facility] 08-04-2024 Hospital Discharge instructions Patient Education [...] or varicose veins, don t sit or floodplain manager one place for long periods of time. [...] Weakness or dizziness Shaking chills Drenching sweats [phone] [employer]. [address] [place] [address]. All rights reserved. This information is not intended as a substitute for professional medical care. Always follow yourhealthcare professional's instructions. Follow Up Care 02/20/2024 15:15:59 With:TU HECTOR DO Address: [address] [place] [phone] When:2-4 days [facility] 08-04-2024 Note Discharge Instructions Thank you for allowing [facility] to assist you with your healthcare needs. The following is importantdischarge information regarding your hospital visit. What to Do Next Instructions from Your Care Team Discharge ED Outpatient Vascular Lab - Ordered -- Test Requested: DVT study LLE (doppler), Lower extremity, Left, Test Reason: Edema, Mon-Fri 8am-4:30pm: Call [phone] at 7:30am to schedule a same day appointment for testing. Please be aware there may be a short wait time., Weekend Holiday 8am-6... Post Acute Orders No qualifying data available. You Need to Schedule the Following Appointments Follow Up with TU HECTOR DO When:Within 2-4 days Where:[address] [place] [phone] Allergies Ceclor Hives Fosamax Swelling / lump [...] or varicose veins, don t sit or floodplain manager one place for long periods of time. [...] Weakness or dizziness Shaking chills Drenching sweats [phone] [employer]. [address] [place] [address]. All rights reserved. This information is not intended as a substitute for professional medical care. Always follow yourhealthcare professional's instructions. Additional Information VACCINATE! IT SAVES LIVES! Members of the community who have not yet received the COVID-19 vaccine and would like to receive it can visit one of [facility] vaccine clinics. There are many vaccine clinic locations within the [facility]. For locations and available times, please visit [email or web address] It is important to note that some COVID mobile vaccine clinics are held outdoors and may be canceled in rainy or stormy conditions. To learn more about pediatric vaccinations (ages 5-11), we invite you to visit the [facility] webpage. https://www.[email or web address].org/pages/7328-Ukkcw-Dufmekutdvl-Tlfglrdjrw-Wpatu-Uut stions.htmlTo learn more about the COVID-19 vaccine, we invite you to visit the CDC website for a list of frequently asked questions. https://www.cdc.gov/coronavirus/2019-ncov/vaccines/faq.html [facility] Patient Portal Access Instructions: Stay connected with your healthcare team and access your personal medical information anytime with the [facility] [employer] Patient Portal. If you would like a full copy of your medical records please contact the [facility] Medical Records Department Wednesday through Wednesday between 8a.m. and 4:30p.m. Please follow the directions below to access the portal: 1.Access the email account you provided upon registration to the [facility].2.Look for an invitation email from [facility].3.Open the email and access the invitation link: Accept Invitation to [email or web address].Fill in the required abbasi to create your account. Sign into [email or web address] with your username and password that you [...] you will allow to register on the [facility] [employer] Patient Portal for access to your information. You can also access the [email or web address] Patient Portal on the [employer]. Simply click on Health Records under FID3 and then click on the [employer] logo. HOW TO SAFELY DISPOSE OF PRESCRIPTION [...] Call your local pharmacy or go to [email or web address] to find one close to you.3.Make use of household items: Use cat litter or old coffee grounds to dispose medications if other options arenot available. Mix your drugs with these household products, seal them in an airtight container andthrow it into the garbage. Call [facility]: [phone] to be sure your drugs can be [...] aware that I should contact my doctor. Patient/Infection Control Practitioner Signature: Date/Time: Relationship to Patient: Witness Name/Signature: Date/Time: [facility]07-26-2024 Hospital Discharge instructions Patient Education 02/11/2024 [...] a prescription antihistamine, oral diphenhydramine is an qiua-qjy-wneatxc antihistamine available at pharmacies and grocery stores. [...] or colored drainage from the affected area [phone] [employer]. [address] [place] [address], [place] [address]. All rights reserved. This information is not intended as a substitute for professional medical care. Always follow yourhealthcare professional's instructions. Follow Up Care 02/11/2024 06:26:14 With:TU HECTOR DO Address: [address] [place] [phone] When:2-4 days [facility] 07-26-2024 Emergency department Discharge summary Discharge Instructions Thank you for allowing [facility] to assist you with your healthcare needs. The following is importantdischarge information regarding your hospital visit. Diagnosis from Today's Visit Allergic reaction to medication What to Do Next Instructions from Your Care Team No qualifying data available. Post Acute Orders No qualifying data available. You Need to Schedule the Following Appointments Follow Up with TU HECTOR DO When:Within 2-4 days Where:[address] [place] [address] [phone] Allergies Ceclor Hives Fosamax Swelling / lump [...] Hypertension Unchanged Misc Medication (Mult. Vitamins by [facility]) Carotomax, OmegaGuard, Osteo Matrix, Sona-Palak Gold w/ [...] a prescription antihistamine, oral diphenhydramine is an qeuj-tct-vujugdm antihistamine available at pharmacies and grocery stores. [...] or colored drainage from the affected area [phone] The [employer]. [address] [place] [address], [place] [address]. All rights reserved. This information is not intended as a substitute for professional medical care. Always follow yourhealthcare professional's instructions. Additional Information VACCINATE! IT SAVES LIVES! Members of the community who have not yet received the COVID-19 vaccine and would like to receive it can visit one of [facility] vaccine clinics. There are many vaccine clinic locations within the [facility]. For locations and available times, please visit www.[email or web address].[email or web address].gov/. It is important to note that some COVID mobile vaccine clinics are held outdoors and may be canceled in rainy or stormy conditions. To learn more about pediatric vaccinations (ages 5-11), we invite you to visit the [facility] webpage. https://www.[facility].org/pages/6954-Gorix-Hlnoqigtqol-Fjuuqavast-Klspk-Tfq stions.htmlTo learn more about the COVID-19 vaccine, we invite you to visit the CDC website for a list of frequently asked questions. https://www.cdc.gov/coronavirus/2019-ncov/vaccines/faq.html [facility] Patient Portal Access Instructions: Stay connected with your healthcare team and access your personal medical information anytime with the [email or web address] Patient Portal. If you would like a full copy of your medical records please contact the [facility] Medical Records Department Wednesday through Wednesday between 8a.m. and 4:30p.m. Please follow the directions below to access the portal: 1.Access the email account you provided upon registration to the hospital.2.Look for an invitation email from [facility].3.Open the email and access the invitation link: Accept Invitation to [email or web address].Fill in the required abbasi to create your account. Sign into [email or web address] with your username and password that you [...] you will allow to register on the [facility] Patient Portal for access to your information. You can also access the [facility] Patient Portal on the [employer] chica. Simply click on Health Records under BablicData and then click on the [employer] logo. HOW TO SAFELY DISPOSE OF PRESCRIPTION [...] Call your local pharmacy or go to http://bit.FlexWage Solutions/[email or web address] to find one close to you.3.Make use of household items: Use cat litter or old coffee grounds to dispose medications if other options arenot available. Mix your drugs with these household products, seal them in an airtight container andthrow it into the garbage. Call [facility]: [phone] to be sure your drugs can be [...] aware that I should contact my doctor. Patient/Infection Control Practitioner Signature: Date/Time: Relationship to Patient: Witness Name/Signature: Date/Time: [facility]07-26-2024 Note ORIGINAL EXAMINATION: ONE XRAY VIEW [...] Date: 02/11/2024 7:17:20 AM Ordering Provider[facility] Progress note Assumed care of patient at this time. Digitally Signed by Maggy Park RN on 02/11/2024 07:09 AM [facility]07-26-2024 NoteSinus rhythm Electronic Signature: NILTON CASTORENA MD 02/11/2024 06:53:00[facility] 07-19-2024 Hospital Discharge instructions Patient Education [...] for signs of illness. If the pet mend worker won t allow this, contact your local [...] stopped after 5 minutes of firm pressure [phone] [employer]. [address] [place] [address]. All rights reserved. This information is not intended as a substitute for professional medical care. Always follow yourhealthcare professional's instructions. Follow Up Care 02/04/2024 12:56:31 With:TU HECTOR DO Address: [address] [place] [address] [phone] When:2-4 days [facility] 07-19-2024 Emergency department Discharge summary Discharge Instructions Thank you for allowing [facility] to assist you with your healthcare needs. The following is importantdischarge information regarding your hospital visit. Diagnosis from Today's Visit Wound of skin What to Do Next Instructions from Your Care Team No qualifying data available. Post Acute Orders No qualifying data available. You Need to Schedule the Following Appointments Follow Up with TU HECTOR DO When:Within 2-4 days Where:[address] [place] [phone] Allergies Ceclor Hives Fosamax Swelling / lump [...] Hypertension Unchanged Misc Medication (Mult. Vitamins by [facility]) Carotomax, OmegaGuard, Osteo Matrix, Sona-Palak Gold w/ [...] for signs of illness. If the pet mend worker won t allow this, contact your local [...] stopped after 5 minutes of firm pressure [phone] [employer]. [address] [place] [address]. All rights reserved. This information is not intended as a substitute for professional medical care. Always follow yourhealthcare professional's instructions. Additional Information VACCINATE! IT SAVES LIVES! Members of the community who have not yet received the COVID-19 vaccine and would like to receive it can visit one of [facility] vaccine clinics. There are many vaccine clinic locations within the [facility]. For locations and available times, please visit www.[email or web address].[place].gov/. It is important to note that some COVID mobile vaccine clinics are held outdoors and may be canceled in rainy or stormy conditions. To learn more about pediatric vaccinations (ages 5-11), we invite you to visit the [facility] webpage. https://www.[facility].org/pages/4522-Fmcjs-Fdmdqglertv-Zxbnqygjpi-Jemly-Xve stions.htmlTo learn more about the COVID-19 vaccine, we invite you to visit the CDC website for a list of frequently asked questions. https://www.cdc.gov/coronavirus/2019-ncov/vaccines/faq.html [facility] [employer] Patient Portal Access Instructions: Stay connected with your healthcare team and access your personal medical information anytime with the [facility] [employer] Patient Portal. If you would like a full copy of your medical records please contact the [facility] Medical Records Department Wednesday through Wednesday between 8a.m. and 4:30p.m. Please follow the directions below to access the portal: 1.Access the email account you provided upon registration to the hospital.2.Look for an invitation email from [facility].3.Open the email and access the invitation link: Accept Invitation to [email or web address].Fill in the required abbasi to create your account. Sign into www.[email or web address] Technologies with your username and password that you [...] you will allow to register on the [email or web address] Patient Portal for access to your information. You can also access the [email or web address] Patient Portal on the [employer]. Simply click on Health Records under FID3 and then click on the [employer] logo. HOW TO SAFELY DISPOSE OF PRESCRIPTION [...] Call your local pharmacy or go to [email or web address].[email or web address] Solutions/[email or web address] to find one close to you.3.Make use of household items: Use cat litter or old coffee grounds to dispose medications if other options arenot available. Mix your drugs with these household products, seal them in an airtight container andthrow it into the garbage. Call [facility]: [phone] to be sure your drugs can be [...] and explained to me and I,KARINA FERNANDO M understand my current condition and have read and understand these discharge instructions. I have received a written copy of the plan/instructions. If I have questions, I am aware that I should contact my doctor. Patient/Infection Control Practitioner Signature: Date/Time: Relationship to Patient: Witness Name/Signature: Date/Time: [facility]07-12-2024 Hospital Discharge instructions Patient Education 01/28/2024 [...] for signs of illness. If the pet mend worker won t allow this, contact your local [...] stopped after 5 minutes of firm pressure [phone] [employer]. [address] [place] [address]. All rights reserved. This information is not intended as a substitute for professional medical care. Always follow yourhealthcare professional's instructions. Follow Up Care 01/28/2024 12:46:23 With:TU HECTOR DO Address: [address] [place] [address] [phone] When:2-4 days [facility] 07-12-2024 Note Discharge Instructions Thank you for allowing [facility] to assist you with your healthcare needs. The following is importantdischarge information regarding your hospital visit. Diagnosis from Today's Visit Cat bite What to Do Next Instructions from Your Care Team No qualifying data available. Post Acute Orders No qualifying data available. You Need to Schedule the Following Appointments Follow Up with TU HECTOR DO When:Within 2-4 days Where:[address] [place] [address] [phone] Allergies Ceclor Hives Fosamax Swelling / lump [...] Hypertension Unchanged Misc Medication (Mult. Vitamins by [facility]) Carotomax, OmegaGuard, Osteo Matrix, Sona-Palak Gold w/ [...] retail pharmacies. Medication Leaflets doxycycline (oral/injection) (DOX i LAUREL kletarsha) Acticlate, Adoxa, Alodox, Avidoxy, Doryx, Doryx MPC, Lymepak, Mondoxyne NL, Monodox, Morgidox, Morgidox 9f763ol, Morgidox 6v365hb, Okebo, Oracea, Targadox, Vibramycin, Vibramycin Monohydrate What [...] bone and tooth development in a nursing . Do not breastfeed while you are taking doxycycline. Doxycycline can cause permanent yellowing or graying of the teeth in children younger than 8 years old. Children should use doxycycline only in cases of severe or life-threatening conditions such as anthrax or [place] spotted fever. The benefit of treating a [...] may report side effects to FDA at 3-684-IOC-7340. What other drugs will affect doxycycline? Sometimes it is not safe to use certain medications at the same time. Some drugs can affect your blood levels of other drugs you take, which may increase side effects or make the medications less effective. Other drugs may affect doxycycline, including prescription and fazd-djz-zfzlxrl medicines, vitamins, and herbal products. Tell your [...] to ensure that the information provided by [employer]. ('Multum') is accurate, up-to-date, and complete, but no guarantee is made to that effect. Drug information contained herein may be time sensitive. NONO information has been compiled for use by healthcare practitioners and consumers in the [place] and therefore NONO does not warrant that uses outside of the [place] are appropriate, unless specifically indicated otherwise. Tr[employer] drug information does not endorse drugs, diagnose patients or recommend therapy. [employer] drug information isan informational resource designed to [...] effective or appropriate for any given patient. NONO does not assume any responsibility for any aspect of healthcare administered with the aid of information NONO provides. The information contained herein is not intended to cover all possible uses, directions, precautions, warnings, drug interactions, allergic reactions, or adverse effects. If you have questions about the drugs you are taking, check with your doctor, nurse or pharmacist. Copyright 6203-8529 [employer]. Version: 25.. Revision Date: 03/24/2023. Education Materials [...] for signs of illness. If the pet mend worker won t allow this, contact your local [...] stopped after 5 minutes of firm pressure [phone] [employer]. [address] [place] [address]. All rights reserved. This information is not intended as a substitute for professional medical care. Always follow yourhealthcare professional's instructions. Additional Information VACCINATE! IT SAVES LIVES! Members of the community who have not yet received the COVID-19 vaccine and would like to receive it can visit one of [facility] vaccine clinics. There are many vaccine clinic locations within the [facility]. For locations and available times, please visit www.gettheshot.coronavirus.[place].gov/. It is important to note that some COVID mobile vaccine clinics are held outdoors and may be canceled in rainy or stormy conditions. To learn more about pediatric vaccinations (ages 5-11), we invite you to visit the [facility] webpage. https://www.[facility].org/pages/4557-Fjruu-Bizvbhjgdjm-Vqeuzsfvxc-Avowf-Jzt stions.htmlTo learn more about the COVID-19 vaccine, we invite you to visit the CDC website for a list of frequently asked questions. https://www.cdc.gov/coronavirus/2019-ncov/vaccines/faq.html [facility] Patient Portal Access Instructions: Stay connected with your healthcare team and access your personal medical information anytime with the [facility] [employer] Patient Portal. If you would like a full copy of your medical records please contact the [facility] Medical Records Department Wednesday through Wednesday between 8a.m. and 4:30p.m. Please follow the directions below to access the portal: 1.Access the email account you provided upon registration to the [facility].2.Look for an invitation email from [facility].3.Open the email and access the invitation link: Accept Invitation to [facility] [employer]4.Fill in the required abbasi to create your account. Sign into www.[email or web address] Technologies with your username and password that you [...] you will allow to register on the [facility] [employer] Patient Portal for access to your information. You can also access the [facility] [employer] Patient Portal on the [employer]. Simply click on Health Records under FID3 and then click on the Chyna logo. [...] Call your local pharmacy or go to http://[email or web address].[employer]Wage Solutions/8L0Ok1i to find one close to you.3.Make use of household items: Use cat litter or old coffee grounds to dispose medications if other options arenot available. Mix your drugs with these household products, seal them in an airtight container andthrow it into the garbage. Call [facility]: [phone] to be sure your drugs can be [...] that I should contact my do ctor. Patient/Infection Control Practitioner Signature: Date/Time: Relationship to Patient: Witness Name/Signature: Date/Time: [facility]12-26-2023 Discharge summary Author Chris Maria [facility] July 13, 2023 5:09pm Note Date/Time July 13, 2023 5:03pm [facility] Medical Records Department [address] [place] [address] Emergency Department Summary 07/13/23 MR#: [id number] Acct: [id number] Name: KARINA FERNANDO Rep #:[id number] : 1950 72 From: Chris Maria MD [...] that her tetanus vaccination is not up-to-date. PFS <HOPE Davey - Last Filed: 07/13/23 17:08> [facility] Home Medications pantoprazole 40 mg tablet,delayed [...] Ox 96 Oxygen Delivery Method Room Air [facility] <HOPE Davey - Last Filed: 07/13/23 17:08> [facility] Treatment and Re-Evaluation :: Patient appears [...] Maria MD - Last Filed: 07/13/23 17:09> [facility] Narrative Medical decision making narrative: I have [...] your Primary Care Provider. Call [facility] ([phone]) or report to the closest Emergency Room. Call 911 if necessary. 07/13/231708 <Electronically signed by Chris Maria MD> Cosigner Signature (if applicable): 07/13/231707 <Electronically signed by Richard ARNETT> CC: Dr. Tu Hector, ~ Signed [facility] Work Phone: [phone]) 152-182407-03-2023 Telephone encounter Note* Telephone Encounter - Marty Daily PA-C - 01/18/2023 9:23 AM EDT PAT orders done [facility] Work Phone: 1(598) 286-990507-03-2023 Miscellaneous Notes* Telephone Encounter - Marty Daily PA-C - 01/18/2023 9:23 AM EDT PAT orders done * Telephone Encounter - Dannielle Izaguirre - 01/15/2023 4:03 PM EDT No PAT- H&P day of surgery Case# [id number] Surgery: [place] 01/21/23 @ 7:30am Procedure: Resection mass left elbow Dx: Left elbow mass Anesthesia: General Local [place] Insurance-no prior auth needed for outpatient Patient aware of surgery date and time documented in this [facility]06-30-2023 Telephone encounter Note* Telephone Encounter - Dannielle Dmitriy - 01/15/2023 4:03 PM EDT No PAT- H&P day of surgery Case# [id number] Surgery: [place] 01/21/23 @ 7:30am Procedure: Resection mass left elbow Dx: Left elbow mass Anesthesia: General Local [place] Insurance-no prior auth needed for outpatient Patient [facility] of [id number] History of Present illness Narrative* Oz Salazar MD - 01/12/2023 10:15 AM EDT [facility] [address] [place] [phone] Dept: [phone] Dept Chief Complaint Patient presents with New Patient Mass left elbow/Dr Corina FERNANDEZ HPI Karina is a 72-year-old female who [...] tablet Take 25 mg by mouth daily. [place]-3 Fatty Acids (OMEGA 3 500 PO) Take [...] 01/12/2023 at 8:50 PM documented in this [facility]06-14-2023 Note ORIGINAL EXAMINATION: BONE DENSITOMETRY 12/30/2022 11:47 [...] Date: 12/30/2022 2:06:23 PM Ordering Provider: TU MIRZALAY [facility]06-14-2023 Note ORIGINAL EXAMINATION: BONE DENSITOMETRY 12/30/2022 [...] Sign Date: 12/30/2022 2:06:23 PM Ordering Provider: [facility]06-04-2023 Hospital Discharge instructions Patient Education 12/20/2022 [...] for signs of illness. If the pet mend worker won t allow this, contact your local [...] stopped after 5 minutes of firm pressure [phone] [employer]. [address] [place] [address], [place] [address]. All rights reserved. This information is not intended as a substitute for professional medical care. Always follow yourhealthcare professional's instructions. Follow Up Care 12/20/2022 13:35:43 With:TU HECTOR DO Address: [address] [place] [phone] When:2-4 days [facility] 06-04-2023 Emergency department Discharge summary Discharge Instructions Thank you for allowing [facility] to assist you with your healthcare needs. The following is importantdischarge information regarding your hospital visit. Diagnosis from Today's Visit bitten by cat What to Do Next Instructions from Your Care Team No qualifying data available. Post Acute Orders No qualifying data available. You Need to Schedule the Following Appointments Follow Up with TU HECTOR DO When Within 2-4 days Where: [address] [place] [phone] Allergies Ceclor (Hives) Fosamax (Swelling / lump [...] for signs of illness. If the pet mend worker won t allow this, contact your local [...] stopped after 5 minutes of firm pressure [phone] [employer]. [address] [place] [address]. All rights reserved. This information is not intended as a substitute for professional medical care. Always follow yourhealthcare professional's instructions. Additional Information VACCINATE! IT SAVES LIVES! Members of the community who have not yet received the COVID-19 vaccine and would like to receive it can visit one of [facility] vaccine clinics. There are many vaccine clinic locations within the [facility]. For locations and available times, please visit www.[email or web address].[place].gov/. It is important to note that some COVID mobile vaccine clinics are held outdoors and may be canceled in rainy or stormy conditions. To learn more about pediatric vaccinations (ages 5-11), we invite you to visit the [facility] webpage. https://www.[facility].org/pages/2231-Dxgzi-Cfnjnderbym-Quvqefhuhk-Wwwri-Aqx stions.htmlTo learn more about the COVID-19 vaccine, we invite you to visit the CDC website for a list of frequently asked questions. https://www.cdc.gov/coronavirus/2019-ncov/vaccines/faq.html [facility] Patient Portal Access Instructions: Stay connected with your healthcare team and access your personal medical information anytime with the [facility] Patient Portal. If you would like a full copy of your medical records please contact the [facility] Medical Records Department Wednesday through Wednesday between 8a.m. and 4:30p.m. Please follow the directions below to access the portal: 1.Access the email account you provided upon registration to the [facility].2.Look for an invitation email from [facility].3.Open the email and access the invitation link: Accept Invitation to [facility]4.Fill in the required abbasi to create your account. Sign into [email or web address] with your username and password that you [...] you will allow to register on the [facility] Patient Portal for access to your information. You can also access the [facility] Patient Portal on the [employer]. Simply click on Health Records under FID3 and then click on the [employer] logo. HOW TO SAFELY DISPOSE OF PRESCRIPTION [...] Call your local pharmacy or go to http://[email or web address].[email or web address] Solutions/[email or web address] to find one close to you.3.Make use of household items: Use cat litter or old coffee grounds to dispose medications if other options arenot available. Mix your drugs with these household products, seal them in an airtight container andthrow it into the garbage. Call [facility]: [phone] to be sure your drugs can be [...] that I should contact my do ctor. Patient/Infection Control Practitioner Signature: Date/Time: Relationship to Patient: Witness Name/Signature: Date/Time: [facility]06-04-2023 History of Present illness Narrative * Jose F Cruz APRN.[facility] - 12/20/2022 12:58 PM EDT Images from [...] Dyazide [Triamterene-Hydrochlorothiazid], Eryc [Erythromycin], Penicillins, Percodan [Oxycodone Wwq-Rdrvimztp-Pnu], and Ultram [Tramadol Hcl] MEDICATIONS hydroCHLOROthiazide 25 [...] evaluation care. Patient will be seen at [facility]. Jose F Cruz APRN.MARIA G documented [facility] + Plan note Future Scheduled Tests Laboratory* Thyroid Stimulating Hormone 07/03/22 * Lipid Profile 07/03/22 * Hepatitis C Antibody IgG 07/03/22 * Complete Metabolic Panel 07/03/22 Radiology* CT Low Dose Lung Cancer Screening (LDCT) 08/20/22 * BD Bone Density DEXA Axial Skeleton 07/27/22 [facility] 07-01-2021 Evaluation + Plan note Future Scheduled Tests Laboratory* Thyroid Stimulating Hormone 01/16/21 * Lipid Profile 01/16/21 * Complete Metabolic Panel 01/16/21 * COVID-19 Only (AO) 07/21/21 Radiology* CT Abdomen and Pelvis w/ contrast 10/21/21 [facility] 07-01-2021 Evaluation + Plan note Future Scheduled Tests Laboratory* Thyroid Stimulating Hormone 01/16/21 * Lipid Profile 01/16/21 * Complete Metabolic Panel 01/16/21 * COVID-19 Only (AO) 07/21/21 [facility] 06-29-2021 History of Present illness Narrative* [...] 14, 2021 10:19 AM documented in this [facility] History of Present illness Narrative* Laura Lebron [...] IV DATA: Not applicable SIGNED BY: RT Ronal(R) December 17, 2020 2:12 PM documented in this encounterMet[facility] CenterEvaluation + Plan note Future Appointments Appointment Date:10/24/2021 02:30:00 PM Scheduled Provider: Location:[facility] [facility] Appointment Type:MA Mammogram Screening Bilateral w/ Avinash Future Scheduled Tests Laboratory* Thyroid Stimulating Hormone 01/16/21 * Lipid Profile 01/16/21 * Complete Metabolic Panel 01/16/21 * COVID-19 Only (AO) 07/21/21 Radiology* MA Mammo Screening Bilateral w/ Avinash 10/24/21 * CT Abdomen and Pelvis w/ contrast 10/21/21 [facility] + Plan note Future Appointments Appointment Date:03/09/2023 03:00:00 PM Scheduled Provider:TU HECTOR DO Location:[facility] Appointment Type: [employer] Medicare Future Scheduled Tests Laboratory* Thyroid Stimulating Hormone 07/03/22 * Thyroid Stimulating Hormone 12/23/22 * Lipid Profile 07/03/22 * Lipid Profile 12/23/22 * Hepatitis C Antibody IgG 07/03/22 * Hepatitis C Antibody IgG 12/23/22 * Complete Metabolic Panel 07/03/22 * Complete Metabolic Panel 12/23/22 Radiology* CT Low Dose Lung Cancer Screening (LDCT) 08/20/22 [facility] + Plan note Future Appointments Appointment Date:07/06/2023 11:30:00 AM Scheduled Provider:TU HECTOR DO Location:[facility] Appointment Type: [employer] Medicare Future Scheduled Tests Laboratory* Thyroid Stimulating Hormone 07/03/22 * Thyroid Stimulating Hormone 12/23/22 * Lipid Profile 07/03/22 * Lipid Profile 12/23/22 * Hepatitis C Antibody IgG 07/03/22 * Hepatitis C Antibody IgG 12/23/22 * Complete Metabolic Panel 07/03/22 * Complete Metabolic Panel 12/23/22 Radiology* CT Low Dose Lung Cancer Screening (LDCT) 08/20/22 [facility] Evaluation + Plan note Future Appointments Appointment Date:02/02/2024 01:00:00 PM Scheduled Provider:TU HECTOR DO Location:[facility] Appointment Type:PC OV Future Scheduled Tests Laboratory* Thyroid Stimulating Hormone 09/29/23 * Lipid Profile 09/29/23 * Hepatitis C Antibody IgG 09/29/23 * Vitamin D Level 09/29/23 * Complete Metabolic Panel 09/29/23 Radiology* CT Low Dose Lung Cancer Screening (LDCT) 09/29/23 * MA Mammo Screening Bilateral w/ Avinash 09/29/23 [facility] evaluation + Plan note Future Appointments Appointment Date:02/02/2024 01:00:00 PM Scheduled Provider:TU HECTOR DO Location:[facility] Appointment Type:PC OV Future Scheduled Tests Laboratory* Thyroid Stimulating Hormone 09/29/23 * Lipid Profile 09/29/23 * Hepatitis C Antibody IgG 09/29/23 * Vitamin D Level 09/29/23 * Complete Metabolic Panel 09/29/23 Radiology* CT Low Dose Lung Cancer Screening (LDCT) 11/22/23 [facility] Evaluation + Plan note Future Appointments Appointment Date:05/03/2024 01:30:00 PM Scheduled Provider:TU HECTOR DO Location:[facility] Appointment Type:PC OV Future Scheduled Tests Laboratory* Thyroid Stimulating Hormone 02/02/24 * Lipid Profile 02/02/24 * Hepatitis C Antibody IgG 02/02/24 * Vitamin D Level 02/02/24 * Complete Metabolic Panel 02/02/24 Radiology* CT Low Dose Lung Cancer Screening (LDCT) 11/22/23 [facility] evaluation + Plan note Future Appointments Appointment Date:02/22/2024 02:00:00 PM Scheduled Provider: Location:[facility] Appointment Type:VL - Venous US/Doppler One Leg (for DVT) Appointment Date:02/24/2024 02:00:00 PM Scheduled Provider:TU HECTOR DO Location:[facility] Appointment Type: OV ED Follow Up Appointment Date:05/03/2024 01:30:00 PM Scheduled Provider:TU HECTOR DO Location:[facility] Appointment Type: OV Future Scheduled Tests Laboratory* Thyroid Stimulating Hormone 02/02/24 * Lipid Profile 02/02/24 * Hepatitis C Antibody IgG 02/02/24 * Vitamin D Level 02/02/24 * Complete Metabolic Panel 02/02/24 Radiology* CT Low Dose Lung Cancer Screening (LDCT) 11/22/23 [facility] [employer] + Plan note Future Appointments Appointment Date:09/14/2024 11:30:00 AM Scheduled Provider:TU HECTOR DO Location:[facility] Appointment Type: OV Appointment Date:09/26/2024 01:30:00 PM Scheduled Provider:TU HECTOR DO Location:[facility] Appointment Type:PC Wellness Medicare Future Scheduled Tests Laboratory* Thyroid Stimulating Hormone 02/02/24 * Lipid Profile 02/02/24 * Hepatitis C Antibody IgG 02/02/24 * Vitamin D Level 02/02/24 * Complete Metabolic Panel 02/02/24 Radiology* CT Low Dose Lung Cancer Screening (LDCT) 11/22/23 * US Thyroid 09/13/24 [facility] [employer] + Plan note Future Appointments Appointment Date:09/26/2024 01:30:00 PM Scheduled Provider:TU HECTOR DO Location:[facility] Appointment Type:PC Wellness Medicare Future Scheduled Tests Laboratory* Basic Metabolic Panel 09/14/24 * Thyroid Stimulating Hormone 02/02/24 * Lipid Profile 09/14/24 * Lipid Profile 02/02/24 * Hepatitis C Antibody IgG 02/02/24 * Vitamin D Level 09/14/24 * Vitamin D Level 02/02/24 * Complete Metabolic Panel 02/02/24 Radiology* CT Low Dose Lung Cancer Screening (LDCT) 11/22/23 * US Thyroid 09/13/24 [facility] Evaluation + Plan note Future Appointments Appointment Date:09/25/2024 03:00:00 PM Scheduled Provider: Location:[facility] Appointment Type:Echo - Echocardiogram Adult Appointment Date:09/26/2024 01:30:00 PM Scheduled Provider:TU HECTOR DO Location:[facility] Appointment Type:PC Wellness Medicare Future Scheduled Tests Laboratory* Basic Metabolic Panel 09/14/24 * Thyroid Stimulating Hormone 02/02/24 * Lipid Profile 09/14/24 * Lipid Profile 02/02/24 * Hepatitis C Antibody IgG 02/02/24 * Vitamin D Level 09/14/24 * Vitamin D Level 02/02/24 * Complete Metabolic Panel 02/02/24 Radiology* CT Low Dose Lung Cancer Screening (LDCT) 11/22/23 [facility] evaluation note* Diagnosis Cat bite, initial encounter- Primary documented in this encounter [facility] note* Diagnosis Elbow mass, left- Primary documented in this encounter [facility] noteNo assessment information availableWCleveland [facility] Work Phone: evaluation note* Diagnosis Cough Wheeze Wheezing documented in this encounter [facility] note* Diagnosis Cough documented in this encounter [facility] note* Diagnosis Infiltrate of lower lobe of left lung present on imaging study- Primary Acute cough documented in this encounter [facility] note* Diagnosis Acute cough documented in this encounter [facility] note* Diagnosis COPD with exacerbation (HCC)- Primary Obstructive chronic bronchitis with exacerbation URI, acute Acute upper respiratory infections of unspecified site documented in this encounter [facility] note* Diagnosis Pericardial effusion Unspecified disease of pericardium documented in this encounter [facility] note* Diagnosis Hilar mass- Primary Right atrial mass documented in this encounter [facility] note* Diagnosis Lung mass- Primary Swelling, mass, or lump in chest Pulmonary emphysema, unspecified emphysema type (HCC) Adenopathy Enlargement of lymph nodes Pericardial effusion Unspecified disease of pericardium Chronic obstructive pulmonary disease, unspecified COPD type (HCC) History of tobacco use Personal history of tobacco use, presenting hazards to health documented in this encounter [facility] note* Diagnosis Hilar mass Adenopathy Enlargement of lymph nodes Lung mass Swelling, mass, or lump in chest Hilar mass Adenopathy Enlargement of lymph nodes Lung mass Swelling, mass, or lump in chest Hilar mass Adenopathy Enlargement of lymph nodes Lung mass Swelling, mass, or lump in chest [facility] Diagnosis Hilar mass Adenopathy Enlargement of lymph nodes Lung mass Swelling, mass, or lump in chest Pleural effusion- Primary Unspecified pleural effusion Pleural effusion Unspecified pleural effusion Lung mass Swelling, mass, or lump in chest Hilar mass Adenopathy Enlargement of lymph nodes Lung mass Swelling, mass, or lump in chest [facility]* Diagnosis Hilar mass Adenopathy Enlargement of lymph nodes Lung mass Swelling, mass, or lump in chest [facility]* Diagnosis Small cell carcinoma of left lung, unspecified part of lung (HCC)- Primary Chronic obstructive pulmonary disease, unspecified COPD type (HCC) 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 [facility]* Diagnosis Pleural mass [facility]* Diagnosis Small cell carcinoma of left lung, unspecified part of lung (HCC)- Primary [facility]* Diagnosis Pleural mass [facility]* Diagnosis Malignant small cell cancer (CMS/HCC) (HCC)- Primary [facility]* Diagnosis Malignant small cell cancer (CMS/HCC) (HCC)- Primary Adenopathy Enlargement of lymph nodes Right atrial mass Pleural effusion Unspecified pleural effusion [facility]* Diagnosis Malignant small cell cancer (CMS/HCC) (HCC)- Primary [facility] Narrative No data available for this section [facility] Hospital Discharge instructions No data available for this section [facility] Discharge instructions Additional Instructions Please make sure he elevate, take off your rings. Take the clindamycin stop taking the other antibiotic. Will take the clindamycin 3 times a day for 1 week. Return for any worsening symptoms.[facility] Work Phone: Hospital Discharge instructions* Attachments The following attachments cannot be sent through Care Everywhere. * General Anesthesia Discharge Instructions (Zambian) * Endobronchial Ultrasound ([place]ambian) [facility] Additional Instructions Avoid taking your [...] oxygen as previously directed. Follow-up with your oncologist.[facility] Work Phone: Hospital Discharge instructionsAdditional Instructions Close follow-up with your PCP return for any worsening symptoms or other concerns.[facility] Work Phone: Progress note No data available for this section [facility] Reason for referral (narrative)No reason for referral information availableWCleveland Clinic [facility] Work Phone: Reason for visit Narrative* Auth/Cert (Routine) Specialty Diagnoses / Procedures Referred By Contac t Referred To Contact Diagnoses Pleural effusion Hypoxia, lung cancer Procedures . Sushila Tam MD [address] [place] [address] Phone: tel: fax: [facility] [address] [place] [id number] Phone: tel: Referral ID Status Reason Start Date Expiration Date Visits Re quested Visits Authorized [id number] 1 1 [facility] for visit Narrative* Auth/Cert (Routine) Specialty Diagnoses / Procedures Referred By Contac t Referred To Contact Diagnoses Hilar mass Adenopathy Lung mass Procedures [facility] EBUS GUIDED SAMPL 3/> NODE STATION/STRUX ENDOBRONCHIAL ULTRASOUND WITH TRANSBRONCHIAL NEEDLE ASPIRATION. POSSIBLE ENDOBRONCHIAL BIOPSIES, NEEDLE ASPIRATION, AND BRUSHINGS. Cain Mejia MD [address] [address] Phone: tel: fax: [facility] Endoscopy [address] [place] [address] Phone: tel: Referral ID Status Reason Start Date Expiration Date Visits Re quested Visits Authorized [id number] 1 1 [facility] for visit Narrative* Imaging (Routine) - Closed Specialty Diagnoses / Procedures [facility] Referred To Contact Radiology Diagnoses Pleural mass Procedures MR brain w and wo contrast Silvio Fortune MD [address] [facility], [address] [place] [address] Phone: tel: fax: Referral ID Status Reason Start Date Expiration Date Visits Re quested Visits Authorized [id number] Closed 10/03/2024 10/03/2025 1 1 [facility] for visit Narrative* Imaging (Routine) - Closed Specialty Diagnoses / Procedures [facility] Referred To Contact Radiology Diagnoses Pleural mass Procedures PET/CT skull base to mid thigh Silvio Fortune MD [address] [facility] [place] [address] Phone: tel: fax: Referral ID Status Reason Start Date Expiration Date Visits Re quested Visits Authorized [id number] Closed 10/03/2024 10/03/2025 1 1 [facility] Chief Complaint and Reason for Visit Chief [...] for Visit Admit Date Mediastinal lymphadenopathy September 18 12:35pm Lung mass September 18, 2024 12:3 [...] for Visit Admit Date Mediastinal lymphadenopathy September 18 12:35pm Lung mass September 18, 2024 12:3 [...] Mediastinal lymphadenopathy January 02, 2 025 9:04am Mediastinal lymphadenopathy January 23 9:03am Chief Complaint Admit Date SOB October 05, 2024 1:5 1pm THYROID [...] maint Imfinzi January 23, 2025 9:15a m CP January 28, 2025 5:44 pm Reason for Visit Admit Date Small cell carcinoma of left lung October [...] Mediastinal lymphadenopathy January 02, 2 025 9:04am Metastasis to adrenal gland January 23 9:03am Metastasis to liver January 23, 2025 9:03a m Small cell lung cancer January 23, 2025 9: 03am Advance Directives No Advanced Directives Records Found Advance Directive Response Recorded Date/ Time Living Will No July 13, 2 023 5:39pm Power of Repair Clerk No July 13, 2023 5:39pm Advance Directive Response Recorded Date/ Time Living Will No July 13 023 6:39pm Power of Repair Clerk No July 13, 2023 6:39pm Date Activated Date Inactivated Comments 10/05/2024 8:10 PM Date Activated Date Inactivated Comments 10/05/2024 10:16 PM 10/06/2024 7:49 PM Date Activated Date Inactivated Comments 10/05/2024 8:10 PM 10/05/2024 10:16 PM Advance Directive Response Recorded Date/ Time Living Will No June 20 9:59am Do you have a Healthcare Power of Repair Clerk? No June 20, 2024 9:59am Living Will Yes September 13 7:47pm Do you have a Healthcare Power of Repair Clerk? Yes September 13, 2024 7:47pm Name of Medical Power of Repair Clerk Andrew September 13, 2024 7:47pm Advance Directive Response Recorded Date/ Time Living Will Yes October 05, 2024 2:07pm Do you have a Healthcare Power of Repair Clerk? Yes October 05, 2024 2:07pm Name of Medical Power of Repair Clerk Diaz Cordova October 05, 2024 2:07pm Living Will No June 20 9:59am Do you have a Healthcare Power of Repair Clerk? No June 20, 2024 9:59am Living Will Yes September 13 7:47pm Do you have a Healthcare Power of Repair Clerk? Yes September 13, 2024 7:47pm Name of Medical Power of Repair Clerk Andrew September 13, 2024 7:47pm Date Activated Date Inactivated Comments 10/05/2024 10:16 PM 10/06/2024 7:49 PM Date Activated Date Inactivated Comments 10/05/2024 8:10 PM 10/05/2024 10:16 PM Advance Directive Response Recorded Date/ Time Living Will Yes October 05, 2024 2:07pm Do you have a Healthcare Power of Repair Clerk? Yes October 05, 2024 2:07pm Name of Medical Power of Repair Clerk Diaz Cordova October 05, 2024 2:07pm Living Will Yes October 21, 2024 3:05pm Do you have a Healthcare Power of Repair Clerk? Yes October 21, 2024 3:05pm Name of Medical Power of Repair Clerk Catherine Art October 21, 2024 3:05pm Living Will Yes September 13, 2 025 7:47pm Do you have a Healthcare Power of Repair Clerk? Yes September 13, 2024 7:47pm Name of Medical Power of Repair Clerk Andrew September 13, 2024 7:47pm Advance Directive Response Recorded Date/ Time Advance Directives on File No November 232024 1:18pm Living Will Yes November 23, 2024 1: 18pm Do you have a Healthcare Pow er of Repair Clerk? Yes November 23, 2024 1:18pm Name of Medical Power of Repair Clerk Diaz Cordova - daughter and Ran Dozier - son November 23, 2024 1:18pm Advance Directives Yes November 23, 2024 1:18pm Living Will Yes October 05, 2024 2:07pm Do you have a Healthcare Pow er of Repair Clerk? Yes October 05, 2024 2:07pm Name of Medical Power of Repair Clerk Diaz Art October 05, 2024 2:07pm Living Will Yes October 21, 2024 3:05pm Do you have a Healthcare Pow er of Repair Clerk? Yes October 21, 2024 3:05pm Name of Medical Power of Repair Clerk Catherine Art October 21, 2024 3:05pm Living Will Yes September 13, 2 025 7:47pm Do you have a Healthcare Pow er of Repair Clerk? Yes September 13, 2024 7:47pm Name of Medical Power of Repair Clerk Andrew September 13, 2024 7:47pm Living Will Yes November 03, 2024 2:04pm Do you have a Healthcare Pow er of Repair Clerk? Yes November 03, 2024 2:04pm Name of Medical Power of Repair Clerk DIAZ ART November 03, 2024 2:04pm Advance Directive Response Recorded Date/ Time Advance Directives on File No January 02, 2025 9:21am Living Will Yes January 02, 2025 9:21am Do you have a Healthcare Pow er of Repair Clerk? Yes January 02, 2025 9:21am Name of Medical Power of Repair Clerk Diaz Cordova - daughter and Ran Dozier - son January 02, 2025 9:21am Advance Directives Yes January 02 9:21am Living Will Yes October 05, 2024 2:07pm Do you have a Healthcare Pow er of Repair Clerk? Yes October 05, 2024 2:07pm Name of Medical Power of Repair Clerk Diaz Cordova October 05, 2024 2:07pm Living Will Yes October 21, 2024 3:05pm Do you have a Healthcare Pow er of Repair Clerk? Yes October 21, 2024 3:05pm Name of Medical Power of Repair Clerk Catherine Cordova October 21, 2024 3:05pm Living Will Yes September 13 7:47pm Do you have a Healthcare Pow er of Repair Clerk? Yes September 13, 2024 7:47pm Name of Medical Power of Repair Clerk Andrew September 13, 2024 7:47pm Living Will Yes November 03, 2024 2:04pm Do you have a Healthcare Pow er of Repair Clerk? Yes November 03, 2024 2:04pm Name of Medical Power of Repair Clerk DIAZ CORDOVA November 03, 2024 2:04pm Advance Directive Response Recorded Date/ Time Advance Directives on File No January 04, 2025 12:59pm Living Will Yes January 04, 2025 12:59pm Do you have a Healthcare Pow er of Repair Clerk? Yes January 04, 2025 12:59pm Name of Medical Power of Repair Clerk Diaz Cordova - daughter and Ran Dozier - son January 04, 2025 12:59pm Advance Directives Yes January 04 12:59pm Living Will Yes October 05, 2024 2:07pm Do you have a Healthcare Pow er of Repair Clerk? Yes October 05, 2024 2:07pm Name of Medical Power of Repair Clerk Diaz Cordova October 05, 2024 2:07pm Living Will Yes October 21, 2024 3:05pm Do you have a Healthcare Pow er of Repair Clerk? Yes October 21, 2024 3:05pm Name of Medical Power of Repair Clerk Catherine Cordova October 21, 2024 3:05pm Living Will Yes November 03, 2024 2:04pm Do you have a Healthcare Pow er of Repair Clerk? Yes November 03, 2024 2:04pm Name of Medical Power of Repair Clerk DIAZ CORDOVA November 03, 2024 2:04pm Advance Directive Response Recorded Date/ Time Advance Directives on File No January 23, 2025 11:30am Living Will Yes January 23, 2025 1 1:30am Do you have a Healthcare Pow er of Repair Clerk? Yes January 23, 2025 11:30am Name of Medical Power of Repair Clerk Diaz Cordova - daughter and Ran Dozier - son January 23, 2025 11:30am Advance Directives Yes January 23 11:30am Living Will Yes October 05, 2024 2:07pm Do you have a Healthcare Pow er of Repair Clerk? Yes October 05, 2024 2:07pm Name of Medical Power of Repair Clerk Diaz Cordova October 05, 2024 2:07pm Living Will Yes October 21, 2024 3:05pm Do you have a Healthcare Pow er of Repair Clerk? Yes October 21, 2024 3:05pm Name of Medical Power of Repair Clerk Catherine Cordova October 21, 2024 3:05pm Living Will Yes November 03, 2024 2:04pm Do you have a Healthcare Pow er of Repair Clerk? Yes November 03, 2024 2:04pm Name of Medical Power of Repair Clerk DIAZ CORDOVA November 03, 2024 2:04pm Do you have a Healthcare Pow er of Repair Clerk? Yes January 28, 2025 6:57pm Name of Medical Power of Repair Clerk Diaz Cordova January 28, 2025 6:57pm Summary Purpose Family History Relationship Condition Age [...] Care Team (unrecognized sect ion and content) Port Cdl A Driver Relationship Specialty Start Date End Date Tu Hector DO [address] [place] [address] [place] [address] PCP - General Family Medicine 01/12/23 Port Cdl A Driver Relationship Specialty Start Date End Date Tu Hector DO [address] [place] [address] PCP - General Family Medicine 01/12/23 Port Cdl A Driver Relationship Specialty Start Date End Date Tu Hector DO [address] [place] [id number] PCP - General Family Medicine 01/12/23 Team Status: Active Member Role Status Dates Wesley Be MD Family Provider Active Dr. Tu Hector DO Primary Care Provider [...] Tu Hector DO Primary Care Provider Active BOARD OF DIRECTORSJosh Lew Attending Provider, Referring Provid er Active Port C[employer] A Driver Relationship Specialty Start Date End Date Tu Hector DO [address] [place] [address] PCP - General Family Medicine 01/12/23 Port Cdl A Driver Relationship Specialty Start Date End Date Tu Hector DO [address] [place] [id number] PCP - General Family Medicine 01/12/23 Port Cdl A Driver Relationship Specialty Start Date End Date Tu Hector DO [address] [place] [id number] PCP - General Family Medicine 01/12/23 Port Cdl A Driver Relationship Specialty Start Date End Date Tu Hector DO [address] [place] [id number] PCP - General Family Medicine 01/12/23 Port Cdl A Driver Relationship Specialty Start Date End Date Tu Hector DO [address] [place] [address] PCP - General Family Medicine 01/12/23 Port Cdl A Driver Relationship Specialty Start Date End Date Tu Hector DO [address] [place] [id number] PCP - General Family Medicine 01/12/23 Team [...] 2024 End: September 22, 2024 Rhiannon Georges BOARD OF DIRECTORS, BOARD OF DIRECTORS-C Attending Provider Active Start: September 22, 2024 End: September 22, 2024 Team Status: Inactive Member Role Status Dates Dr. Tu Hector DO Primary Care Provider Active Start: September 22, 2024 End: September 22, 2024 Rhiannon Georges BOARD OF DIRECTORS, BOARD OF DIRECTORS-C Attending Provider Active Start: September 22, 2024 End: September 22, 2024 Rhiannon Georges BOARD OF DIRECTORS, BOARD OF DIRECTORS-C Referring Provider Active Start: September 22, 2024 End: September 22, 2024 Team Status: Active Member Role Status Dates Dr. Tu Hector DO Primary Care Provider Active Start: September 25, 2024 Rhiannon Georges BOARD OF DIRECTORS, BOARD OF DIRECTORS-C Attending Provider Active Start: September 25, 2024 Rhiannon Georges BOARD OF DIRECTORS, BOARD OF DIRECTORS-C Referring Provider Active Start: September 25, 2024 Team Status: Inactive Member Role Status Dates Dr. Tu Hector DO Primary Care Provider Active Start: September 28, 2024 End: September 28, 2024 Dr. Tu Hector DO Referring Provider Active Start: September 28, 2024 End: September 28, 2024 Rhiannon Georges BOARD OF DIRECTORS, BOARD OF DIRECTORS-C Attending Provider Active Start: September 28, 2024 End: September 28, 2024 Team Status: Inactive Member Role Status Dates Dr. Tu Hector DO Primary Care Provider Active Start: September 25, 2024 End: September 25, 2024 Rhiannon Georges BOARD OF DIRECTORS, BOARD OF DIRECTORS-C Attending Provider Active Start: September 25, 2024 End: September 25, 2024 Rhiannon Georges BOARD OF DIRECTORS, BOARD OF DIRECTORS-C Referring Provider Active Start: September 25, 2024 [...] October 10, 2024 End: October 10, 2024 Port Cdl A Driver Relationship Specialty Start Date End Date Tu Hector DO [address] [place] [address] PCP - General Family Medicine 01/12/23 Port Cdl A Driver Relationship Specialty Start Date End Date Tu Hector DO [address] [place] [address] PCP - General Family Medicine 01/12/23 Port Cdl A Driver Relationship Specialty Start Date End Date Tu Hector DO [address] [place] [address] PCP - General Family Medicine 01/12/23 Port Cdl A Driver Relationship Specialty Start Date End Date Tu Hector DO [address] [place] [address] PCP - General Family Medicine 01/12/23 Port Cdl A Driver Relationship Specialty Start Date End Date Tu Hector DO [address] [place] [address] PCP - General Family Medicine 01/12/23 Team Status: Inactive Member Role Status Dates Dr. Tu Hector DO Primary Care Provider Active Start: October 21, 2024 End: October 21, 2024 Tay Dumont MD Emergency Provider Active Star t: October 21, 2024 End: October 21, 2024 Port Cdl A Driver Relationship Specialty Start Date End Date Tu Hector DO [address] [place] [id number] PCP - General Family Medicine 01/12/23 Port Cdl A Driver Relationship Specialty Start Date End Date Tu Hector DO [address] [place] [id number] PCP - General Family Medicine 01/12/23 Port Cdl A Driver Relationship Specialty Start Date End Date Tu Hector DO [address] [place] [id number] PCP - General Family Medicine 01/12/23 Port Cdl A Driver Relationship Specialty Start Date End Date Tu Hector DO [address] [place] [id number] PCP - General Family Medicine 01/12/23 Port Cdl A Driver Relationship Specialty Start Date End Date Tu Hector DO [address] [place] [id number] PCP - General Family Medicine 01/12/23 Team [...] 2024 End: October 26, 2024 Anayeli Win BOARD OF DIRECTORS, [employer] OF DIRECTORS-C Attending Provider Active Start: October 26, 2024 [...] 2024 End: October 31, 2024 Anayeli Win BO[employer] OF DIRECTORS, BO[employer] OF DIRECTORS-C Attending Provider Active Start: October 31, 2024 End: October 31, 2024 Team Status: Inactive Member Role Status Dates Dr. Tu Hector DO Primary Care Provider Active Start: November 09, 2024 End: November 09, 2024 Dr. Tu Hector DO Referring Provider Active Start: November 09, 2024 End: November 09, 2024 Anayeli Win BOARD OF DIRECTORS, BOARD OF DIRECTORS-C Attending Provider Active Start: November 09, 2024 [...] Provider Active Start: December 12, 2024 Dr. lAis Chance MD Referring Provider Active Start: December 12, 2024 Team Status: Inactive Member Role Status Dates Dr. Tu Hector DO Primary Care Provider Active Start: December 12, 2024 End: December 12, 2024 Dr. Tu Hector DO Referring Provider Active Start: December 12, 2024 End: December 12, 2024 Anayeli Win [employer] OF DIRECT[employer], BO[employer] OF DIRECTORS-C Attending Provider Active Start: December 12, 2024 [...] 2024 End: September 25, 2024 Rhiannon Georges BO[employer] OF DIRECTORS, BO[employer] OF DIRECTORS-C Attending Provider Active Start: September 25, 2024 End: September 25, 2024 Rhiannon Georges BOARD OF DIRECTORS, BO[employer] OF DIRECTORS-C Referring Provider Active Start: September 25, 2024 End: September 25, 2024 Team Status: Active Member Role/Relationship Status Dates Dr. Tu Hector DO Primary Care Provider Active Start: September 25, 2024 Dr. Jose Perdomo DO Attending Provider Active S tart: September 25, 2024 Rhiannon Georges BOARD OF DIRECTORS, BO[employer] OF DIRECTORS-C Referring Provider Active Start: September 25, 2024 Team Status: Inactive Member Role/Relationship Status Dates Dr. Tu Hector DO Primary Care Provider Active Start: September 28, 2024 End: September 28, 2024 Dr. Tu Hector DO Referring Provider Active Start: September 28, 2024 End: September 28, 2024 Rhiannon Georges BOARD OF DIRECTORS, BOARD OF DIRECTORS-C Attending Provider Active Start: September 28, 2024 [...] 2024 End: October 26, 2024 Anayeli Win [employer] OF DIRECT[employer], BO[employer] OF DIRECT[employer]-C Attending Provider Active Start: October 26, 2024 End: October 26, 2024 Team Status: Inactive Member Role/Relationship Status Dates Dr. Tu eHctor DO Primary Care Provider Active Start: October [...] 2024 End: October 31, 2024 Anayeli Win BOARD OF DIRECT[employer], BO[employer] OF DIRECTORS-C Attending Provider Active Start: October 31, 2024 End: October 31, 2024 Team Status: Inactive Member Role/Relationship Status Dates Dr. Tu Hector DO Primary Care Provider Active Start: November 09, 2024 End: November 09, 2024 Dr. Tu Hector DO Referring Provider Active Start: November 09, 2024 End: November 09, 2024 Anayeli Win BOARD OF DIRECTORS, BOARD OF DIRECTORS-C Attending Provider Active Start: November 09, 2024 [...] 12, 2024 End: December 12, 2024 Anayeli Audelia BOARD OF DIRECTORS, BOARD OF DIRECTORS-C Attending Provider Active Start: December 12, 2024 [...] Provider Active Start: January 04, 2025 Dr. Alsi Chance MD Referring Provider Active Start: January 04, 2025 Team Status: Inactive Member Role/Relationship Status Dates Dr. Tu Hector DO Primary Care Provider Active Start: January 16, 2025 End: January 16, 2025 Anayeli Audelia BOARD OF DIRECT[employer], BO[employer] OF DIRECTORS-C Attending Provider Active Start: January 16, 2025 End: January 16, 2025 Anayeli Audelia BOARD OF DIRECTORS, BO[employer] OF DIRECTORS-C Referring Provider Active Start: January 16, 2025 End: January 16, 2025 Team Status: Inactive Member Role/Relationship Status Dates Dr. Tu Hector DO Primary Care Provider Active Start: January 16, 2025 End: January 16, 2025 Anayeli Audelia BOARD OF DIRECTORS, BOARD OF DIRECTORS-C Attending Provider Active Start: January 16, 2025 End: January 16, 2025 Anayeli Audelia BO[employer] OF DIRECT[employer], BO[employer] OF DIRECTORS-C Referring Provider Active Start: January 16, 2025 [...] Referring Provider Active Start: January 23, 2025 Team Status: Active Member Role/Relationship Status Dates TORIBIO CASTILLO Primary Care Provider Active Team Status: Inactive [...] 2024 End: October 26, 2024 Anayeli Win BOARD OF DIRECTORS, BO[employer] OF DIRECTORS-C Attending Provider Active Start: October 26, 2024 [...] October 31, 2024 End: October 31, 2024 Anayeliniki GarciaAudelia BOARD OF DIRECTORS, BOARD OF DIRECTORS-C Attending Provider Active Start: October 31, 2024 End: October 31, 2024 Team Status: Inactive Member Role/Relationship Status Dates Dr. Tu Hector DO Primary Care Provider Active Start: November 09, 2024 End: November 09, 2024 Dr. Tu Hector DO Referring Provider Active Start: November 09, 2024 End: November 09, 2024 Anayeli Audelia BO[employer] OF DIRECT[employer], BO[employer] OF DIRECTORS-C Attending Provider Active Start: November 09, 2024 [...] 2024 End: December 12, 2024 Anayeli Win BOARD OF DIRECTORS, BOARD OF DIRECTORS-C Attending Provider Active Start: December 12, 2024 [...] 2025 End: January 02, 2025 Team Status: Inactive Member Role/Relationship Status Dates Dr. Tu Hector DO Primary Care Provider Active Start: January 16, 2025 End: January 16, 2025 Anayeli Audelia BOARD OF DIRECTORS, BO[employer] OF DIRECTORS-C Attending Provider Active Start: January 16, 2025 End: January 16, 2025 Anayeli Audelia BO[employer] OF DIRECT[employer], BOARD OF DIRECTORS-C Referring Provider Active Start: January 16, 2025 [...] Referring Provider Active Start: January 23, 2025 Team Status: Inactive Member Role/Relationship Status Dates TORIBIO CASTILLO Primary Care Provider Active Start: January 28, 2025 End: January 28, 2025 Dr. Georgi Barroso DO Emergency Provider Active Start: January 28, 2025 End: January 28, 2025 Source Comments (unrecognize d section and content) In the event this informatio n is protected by the Federal Confidentiality of Alcohol and Drug Abuse Patient Records regulations: The Federal rules restrict any use of the information to criminally investigate or prosecute any alcohol or drug abuse patient.[facility] Center[facility] the event this information is protected by the Federal Confidentiality of Alcohol and Drug Abuse Patient Records regulations: The Federal rules restrict any use of the information to criminally investigate or prosecute any alcohol or drug abuse patient.[facility] Center[facility] the event this information is protected by the Federal Confidentiality of Alcohol and Drug Abuse Patient Records regulations: The Federal rules restrict any use of the information to criminally investigate or prosecute any alcohol or drug abuse patient.[facility] Center[facility] the event this information is protected by the Federal Confidentiality of Alcohol and Drug Abuse Patient Records regulations: The Federal rules restrict any use of the information to criminally investigate or prosecute any alcohol or drug abuse patient.[facility] Center[facility] the event this information is protected by the Federal Confidentiality of Alcohol and Drug Abuse Patient Records regulations: The Federal rules restrict any use of the information to criminally investigate or prosecute any alcohol or drug abuse patient.[facility] CenterIn the event this information is protected by the Federal Confidentiality of Alcohol and Drug Abuse Patient Records regulations: The Federal rules restrict any use of the information to criminally investigate or prosecute any alcohol or drug abuse patient.[facility] CenterIn the event this information is protected by the Federal Confidentiality of Alcohol and Drug Abuse Patient Records regulations: The Federal rules restrict any use of the information to criminally investigate or prosecute any alcohol or drug abuse patient.[facility] Reason for Visit (unrecogniz ed section and content) Reason Comments Rash Bottom lower half of right leg, dizziness started at 1:30 am this morning Reason Comments New Patient Mass left elbow/Dr K napic Reason Comments Cough Cough, sinus pressur e and drainage x 2 days Reason Comments Sinus Problem sinus pressure, drai nage, sob x 3 days Reason Onset Date Comments Results 09/03/2024 Reason Onset Date Comments Care Coordination 10/03/2024 Lung Nodule Fo llow up / Expedite LNC and Cardiology eval / PFT From [place] [facility] Reason Comments New Patient Shortness of Breath >1yr Reason Comments New Patient Reason Onset Date Comments Care Coordination 10/05/2024 Reason Comments Tumor Board Recommendations Thoracic Dalila or Board Recommendations 10/17/24 Reason Comments Follow-up Reason Onset Date Comments Care Coordination 10/17/2024 Expedite PET s can and send records to med onc in [place] Reason Onset Date Comments Error (VOID this visit) 10/23/2024 Reason Comments New Patient Thyroid Problem Thyroid nodule Specialty Diagnoses / Procedures Referred By Contac t Referred To Contact Endocrinology Diagnoses Nontoxic single thyroid nodule Procedures [place] OFFICE/OUTPATIENT NEW MODERATE MDM 45 MINUTES Joselin Nieto [address] [place] [address] Phone: tel: fax: [facility] - [address] [place] [id number] Phone: tel: fax:[phone] Referral ID Status Reason Start Date Expiration Date V isits Requested Visits Authorized [id number] Pending Review 10/24/2024 10/24/2025 1 1 Reason Onset Date Comments Other 11/01/2024 Goals (unrecognized section and content) Goals may be documented in a n alternate section INFORMATION SOURCE (unrecogn ized section and content) DATE CREATED AUTHOR 02/27/2024 [facility] ([place]) DATE CREATED AUTHOR AUTHOR'S ORGANIZ ATION 09/04/2024 [facility] DATE CREATED AUTHOR AUTHOR'S ORGANIZ ATION 09/27/2024 [facility] DATE CREATED AUTHOR AUTHOR'S ORGANIZ ATION 11/24/2024 [facility] DATE CREATED AUTHOR AUTHOR'S ORGANIZ ATION 12/02/2024 [facility] DATE CREATED AUTHOR AUTHOR'S ORGANIZ ATION 02/11/2025 [facility] Scheduled Active and Recently Administ ered Medications [...] since Wed10/06/2024 at 0234 until manually unheld 023 (Held by provid er - Provider: Sushila Tam MD - Reason: Change in vital signs)0900 (Dose Auto Held - Provider: Sushila Tam MD)194 (Unheld by provider - Provider: Automatic Discharge Provider) ipratropium-albuterol (Duo-Neb) 0.5-2.5 mg/3 mL nebulizer solution 3 mL 3 mL, Nebulization, 3 times daily, First dose on Wed10/05/24 at 2245 2245 (Not Given - Provider: Livan Colon, HEALTH TECHNICAL WRITER - Reason: Order parameters not met) 0747 (Given - Provider: Sean Chen RRT)1155 (Given - Provider: Sean Chen RRT) melatonin tablet 10 mg 10 mg, Oral, Nightly, First dose on Ricarda 10/05/24 at 2230 2228 (Given - Provider: Pravin Duval RN) mometasone-formoterol (Dulera 200) 200-5 MCG/ACT inhaler 2 puff 2 puff, Inhalation, 2 times daily, First dose on Ricarda 10/05/24 at 2230, Rinse mouth with water after use to reduce aftertaste and incidence of candidiasis. Do not swallow. 223 (Not Given - Provider: Pravin Duval RN - Reason: Patient/family refused - Comment: patient wants to start in AM) 1037 (Given - Provider: Dannielle Lawson, RN) sodium chloride 0.9% (NS) flush 10 mL 10 mL, IntraVENous, Every 12 hours scheduled (2 times per day), First dose on Ricarda 10/05/24 at 2100 2100 (Canceled Entry - Provider: Pravin Duval RN) 1036 (Given - Provider: Dannielle Lawson, RN) sodium chloride 0.9% (NS) flush 5-40 [...] PRN, wheezing, shortness of breath, Starting on Ricarda 10/05/24 at 2209 barium sulfate (Varibar Poteet, Varibar Honey) 40 % suspension 10 mL (COMPLETED) 10 mL, Oral, IMG once PRN, contrast, Starting on Wed10/06/24 at 0858, For 1 dose 0903 (Given - Provid er: Veronica Ly, RT (R)) barium sulfate (Varibar Pudding) 40 [...] 3 times daily PRN, anxiety, Starting on Wed10/05/24 at 2209 0242 (Given - Provid er: [...] pupils, RR < 8; notify 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 0156 (Given - Provid er: Pravin Duval RN)1117 (Given - Provider: Dannielle Lawson [...] long duration, Starting on Ricarda 10/05/24 at 221, For piggyback infusion, administer at same rate [...] (7-10), Starting on Ricarda 10/05/24 at 2015 PRN Medication Order 10/07/2024 10/08/2024 10/09/2024 diphenhydrAMINE [...] For 1 dose, Recovery (only), PHASE II 1611 (Given - Provid er: Seth Cagle RN) [...] BE BASED ON THE PRIMARY CLINICAL RECORDS. [facility]. provides no warranty or guarantee of the accuracy or completeness of information in this document.
--- NOTE | 2025-02-11 18:00 | PCM.HP.STD ---
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 Does take oxycodone throughout the day and presented here Wednesday, 4 days ago, she had to disimpact herself. She started having bowel movements again and improvement a day and a half later she started experiencing abdominal bloating and vomited 3-4 times without hematemesis in the past 24 hours. Abdominal pain is diffuse and she has abdominal distention. In the ED afebrile, heart rate 124 with a blood pressure 119/84, respiratory rate 22 and patient 97% on room air. CBC with white count of 5.6. CMP with a potassium of 3.1, BUN of 15 and creatinine 0.97. Lipase 10. UA not suggestive of infectious source. Abdominal/pelvis CT suggestive of persistent small bowel obstruction but other findings unchanged. Surgery service contacted who recommended an NG tube, enema, admit to medicine and they will follow in consultation. Hospitalist contacted for admission. Patient evaluated bedside. She just had enema, reports she feels a little bit better than when she came in, still has abdominal pain and nausea but both are slightly improved. Denies any fevers, no changes in bladder, denies any changes in her breathing or new cough. He is on immunotherapy with last treatment 3 weeks ago. [facility] Medical History Delayed surgical wound healing Constipation Pericardial effusion Hilar mass Right atrial mass Genital herpes Osteoporosis Migraine Hyperlipidemia Hiatal hernia GERD (gastroesophageal reflux disease) Depression Chronic kidney disease (CKD) Bilateral leg edema Thyroid enlargement Hypokalemia Wears dentures Wears glasses Post-menopausal Cancer History of steroid therapy Arthritis Back pain History of hiatal hernia Gastric reflux Former smoker On home oxygen therapy Asthma Shortness of breath on exertion Hoarseness Chronic cough History of edema Cardiology follow-up encounter History of echocardiogram Hypertension Coughing up blood Chest pain Anemia Encounter for antineoplastic immunotherapy Encounter for chemotherapy management Small cell lung cancer Encounter for education 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 COPD (chronic obstructive pulmonary disease) Home Medications ?Medication ?Instructions ?Recorded ?Last Taken ?Type albuterol sulfate 90 mcg/actuation 1 - 2 puff inhalation Q4H PRN PRN 08/24/19 Unknown History aerosol inhaler Sob &/Or Wheezing loratadine 10 mg tablet 10 mg PO DAILY 08/24/19 11/15/24 History multivitamin 1 tab PO QAM 09/18/24 11/15/24 History albuterol sulfate 2.5 mg/3 mL 2.5 mg inhalation PRN PRN 09/22/24 11/16/24 History (0.083 %) solution for nebulization shortness of breath or wheezing lidocaine-prilocaine 2.5 %-2.5 % 1 applic topical ONCE PRN port 10/26/24 Unknown Rx topical cream access 30 days #30 grams ondansetron 8 mg disintegrating 8 mg PO Q8H PRN nausea and 10/26/24 Unknown Rx tablet vomiting #30 tabs prochlorperazine maleate 10 mg 10 mg PO Q6H PRN nausea and 10/26/24 Unknown Rx tablet vomiting #30 tabs budesonide-formoterol HFA 80 2 inh inhalation .x4 11/09/24 11/16/24 History mcg-4.5 mcg/actuation aerosol inhaler buspirone 10 mg tablet 10 mg PO TID PRN anxiety 11/13/24 11/16/24 History pantoprazole 40 mg tablet,delayed 40 mg PO QDAY 11/13/24 11/16/24 History release docusate sodium 100 mg capsule 200 mg PO QDAY 11/17/24 Unknown History (Dulcolax Stool Softener (docusate)) ferrous sulfate 325 mg (65 mg 325 mg PO QDAY 11/17/24 Unknown History iron) tablet,delayed release trazodone 100 mg tablet 150 mg PO QHS 11/17/24 Unknown History valacyclovir 500 mg tablet 500 mg PO QDAY PRN shingles 11/17/24 Unknown History oxycodone 10 mg tablet 10 mg PO BID PRN pain 11/22/24 Unknown History cyanocobalamin (vitamin B-12) 50 50 mcg PO DAILY 02/11/25 Unknown History mcg tablet durvalumab 50 mg/mL intravenous IV Q14D 02/11/25 Unknown History solution famotidine 10 mg tablet 10 mg PO BID 02/11/25 Unknown History furosemide 20 mg tablet 20 mg PO DAILY PRN swelling 02/11/25 Unknown History potassium chloride 20 mEq 20 meq PO DAILY 02/11/25 Unknown History tablet,extended release(part/cryst) zinc citrate, zinc oxide 50 mg 50 mg PO DAILY 02/11/25 Unknown History tablet Allergy/AdvReac Type Severity Reaction Status Date / Time calcipotriene Allergy Severe Rash Verified 02/11/25 14:51 Opioids - Morphine Analogues Allergy Severe Hives Verified 02/11/25 14:51 alendronate sodium (From Allergy Pain in Verified 02/11/25 14:51 Fosamax) joints cefaclor (From Ceclor) Allergy Hives Verified 02/11/25 14:51 ezetimibe Allergy Other Verified 02/11/25 14:51 Penicillins Allergy Hives Verified 02/11/25 14:51 tramadol HCl (From Ultra) Allergy Hives Verified 02/11/25 14:51 hydrochlorothiazide AdvReac Unknown reaction Verified 02/11/25 14:51 erythromycin base AdvReac Nausea Verified 02/11/25 14:51 Family History Mother Leukemia Osteoporosis Thyroid disorder Grandfather Brain cancer Father Respiratory disease Brother Heart disease Surgical History History of tubal ligation History of bunionectomy History of carpal tunnel surgery of right wrist History of eyelid surgery History of shoulder surgery History of carpal tunnel release History of bilateral knee replacement H/O breast biopsy History of appendectomy Previous back surgery Social History Smoking Status: Former smoker Tobacco: How many years used: 30 alcohol intake: never ROS ROS Narrative General: Denies fever/chills HENT: Denies headache, denies stuffy nose, denies sore throat EYES: Denies changes in vision Resp: No changes in vision or new cough Cardiac: Denies chest pain GI: Has had problems with constipation, diffuse abdominal pain, nausea with vomiting, slightly improved : Denies changes in urination Extremity: Did have swelling in lower extremities with cellulitis and took Doxy for 7 days but this is resolved MSK: Denies focal weakness Neuro: Denies any numbness/tingling Heme: Denies any bleeding or bruising Skin: Denies rashes Psychiatric: No complaints voiced Vital Signs Vital Signs Vital Signs: 02/11/25 14:48 02/11/25 14:51 02/11/25 17:00 Temperature 98.7 F 98.7 F 98.7 F Temperature Source Oral Oral Oral Pulse Rate 124 H 124 H 107 H Respiratory Rate 22 H 22 H 13 Blood Pressure 119/84 H 119/84 H 128/85 H Blood Pressure Mean 95 95 99 Pulse Ox 97 97 92 Oxygen Delivery Method Nasal Cannula Room Air Nasal Cannula Oxygen Flow Rate (L/min) 3 3 Weight Weight: 63.8 kg Body Mass Index (BMI) 24.9 Physical Exam Narrative General: Alert, oriented, no apparent distress HEENT: Atraumatic, normocephalic Eyes: Anicteric, normal conjunctiva, extraocular movements grossly intact Neck: Supple Respiratory: No overt wheezes or rhonchi, normal respiratory effort Cardiovascular: Low-grade sinus tachycardia GI: A little bit diffusely tender but no rebound, guarding, rigidity, little distended Extremities: Trace bilateral lower extremity edema Musculoskeletal: Moving all extremities Neuro: No overt focal neurological deficits Skin: No rashes appreciated Psych: Cooperative Results Lab / Micro Data 02/11/25 16:20 02/11/25 16:20 Labs: Laboratory Results - last 24 hr 02/11/25 16:20: WBC 5.6, RBC 3.89 L, Hgb 12.0, Hct 37.0, MCV 95.1, MCH 30.8, MCHC 32.4, RDW Std Deviation 58.0 H, RDW Coeff of Juan David 16.8 H, Plt Count 191, MPV 8.7, Immature Gran % (Auto) 0.400, Neut % (Auto) 71.5 H, Lymph % (Auto) 16.0 L, [place]bot % (Auto) 11.7 H, Eos % (Auto) 0.0, Baso % (Auto) 0.4, Absolute Neuts (auto) 4.0, Absolute Lymphs (auto) 0.90, Nucleated RBC % 0, Sodium 138, Potassium 3.1 L, Chloride 100, Carbon Dioxide 26.7, Anion Gap 11, BUN 15, Creatinine 0.97, Estim Creat Clear Calc 46.45 L, Est GFR (MDRD) Non-Af 62, BUN/Creatinine Ratio 15.3, Glucose 105 H, Calcium 8.3, Magnesium 2.2, Total Bilirubin 0.31, AST 23, ALT 21, Alkaline Phosphatase 87, Total Protein 5.2 L, Albumin 3.1 L, Globulin 2.1 L, Albumin/Globulin Ratio 1.5, Lipase 10 L 02/11/25 16:40: Urine Color Yellow, Urine Clarity Clear, Urine pH 7.0, Ur Specific Shelly 1.010, Urine Protein 30 H, Urine Glucose (UA) Normal, Urine Ketones 5 H, Urine Occult Blood Negative, Urine Nitrite Negative, Urine Bilirubin Negative, Urine Urobilinogen Normal, Ur Leukocyte Esterase 25 H, Urine RBC 0 SEEN, Urine WBC 0-5 SEEN, Ur Squamous Epith Cells 0 SEEN, Urine Bacteria 2+, Urine Mucus 1+ Imaging Radiology Impression Abdomen/Pelvis CT 02/11/25 15:13 IMPRESSION: Findings concerning for a persistent small-bowel obstruction. Additional findings are unchanged when compared to the prior study. Reading [facility] Assessment & Plan Assessment/Plan (1) Partial small bowel obstruction: PLAN: Plan # Small bowel obstruction - Abdominal/pelvis CT suggestive of persistent small bowel obstruction - ED physician discussed with on-call surgeon, NG tube and enema recommended and they will see in consultation -Surgery consult -NG tube placed in ED -Enema ordered -N.p.o. 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 Chance, last seen in office 01/23/2025 #Hx COPD -Continue home inhalers -Incentive spirometer #Depression/anxiety - Patient n.p.o. with NG tube, resume home medications once patient able to tolerate p.o. #GERD -Continue PPI but will convert to IV given n.p.o. status and NG tube #DVT ppx: SCDs Ami Magdaleno MD Charges/Coding Visit Charges Inpatient E&M: 60944 Init Hosp L2
[2025-02-11] MEDS: Oxymetazoline 0.05% 1 SPRAY SPRAY.BTL 2 SPRAY NASAL (18:04)
[2025-02-11] MEDS: KCL 40mEq in 0.9% NS 40 MEQ/1,000 ML IV.SOLN 250 MEQ IV ×2 (18:18→22:56)
--- OUTSIDE RECORDS SUMMARY | 2025-02-11 18:18 | XMS RPT_ITS | CCD ---
Author Organization [facility] Care Team Providers Care Teacher Visually Impaired Name Role Phone TU HECTOR DO Primary Care Physician [phone] Unavailable Primary Care Provider Tu Dasilva DO Primary Care Provider [phone] TU HECTOR DO Primary Care Physician [phone] Care Provider UnavailSERGIO Stone Referring Unavailable MAST PRESS TENDER-SUPERVISOR MAINTENANCE, JOSELIN Attending UnavailTU Prieto DO Primary Care Unavailable TAWNY CAT TU Primary Care Unavailable MAST PRESS TENDER-SUPERVISOR MAINTENANCE, JOSELIN Attending Unavailbk HECTOR DO, TU Primary Care Unavailable MAST PRESS TENDER-SUPERVISOR MAINTENANCE, JOSELIN Attending Unavailbk HECTOR DO, TU Primary Care Unavailable MAST PRESS TENDER-MARIA G, JOSELIN Attending UnavailDr. uT rPieto DO Primary Care Provider [phone] Dr. Anh Irene DO Attending Provider Teto CAT, Dr. Kamara Emergency Provider Crow MYERS, Dr. Perez Attending Provider Crow MYERS, Dr. Perez Emergency Provider [phone] Crow MYERS, Dr. Perez Referring Provider Robson MYERS, Dr. Snell Attending Provider Robson MYERS, Dr. Snell Referring Provider Tawny CAT, Dr. Mata Referring Provider Destini BLUE PRINTS TRIMMER-C, Rhiannon Attending Provider Destini BLUE PRINTS TRIMMER-C, Rhiannon Referring Provider Chuck CAT, Dr. Ferguson Emergency Provider [phone] Dr. Marty Woods DO Attending Provider Tawny CAT, Dr. Mata Attending Provider Dr. Tu Hector DO Primary Care Provider [phone] Tay Dumont MD Emergency Provider [phone] JOSELYN TUCKER Attending Unavailable MAST, JOSELIN Referring [...] Attending TU Maldonado DO Primary Care Unavailable Tay Dumont MD Attending Provider Sachi MYERS, Dr. Anna Attending Provider Audelia BLUE PRINTS TRIMMER-C, Anayeli Attending Provider Fabiola MYERS, Dr. Nelson Attending Provider [phone] Fabiola MYERS, Dr. Nelson Referring Provider Fabiola MYERS, Dr. Nelson Other Provider Lito MYERS, Dr. Boateng Attending Provider Robson MYERS, Dr. Snell Referring Provider Robson MYERS, Dr. Snell Referring Provider Dr. Tu Hector DO Primary Care Provider [phone] Destini BLUE PRINTS TRIMMER-C, Rhiannon Attending Provider Destini BLUE PRINTS TRIMMER-C, Rhiannon Referring Provider Dr. Jose Perdomo DO Attending Provider Dr. Tu Hector DO Referring Provider Dr. Alis Chance MD Attending Provider Dr. Alis Chance MD Referring Provider Audelia BLUE PRINTS TRIMMER-C, Anayeli Referring Provider Dr. Alis Chance MD Referring Provider Dr. Tu Hector DO Primary Care Provider [phone] Dr. Tu Hector DO Referring Provider JOSELIN WILKINSON Primary Care Provider [phone] Dr. Georgi Barroso DO Emergency Provider Tu Hector Primary Care Unavailable Destini BLUE PRINTS TRIMMERRhiannon Referring Unavailable Destini BLUE PRINTS TRIMMER, Rhiannon Attending Unavailable Tu Hector Primary Care Unavailable Tay Dumont Attending Unavailable Tu Hector Referring Unavailable Georges BLUE PRINTS TRIMMER, Rhiannon Attending Unavailable Tawny, Tu Primary Care Unavailable Isckarus, Mansour Referring Unavailable Isckarus, Mansour Attending Unavailable Tawny, Tu Primary Care Unavailable Marty Woods Attending Unavailable Tawny, Tu Primary Care Unavailable MAST, JOSELIN Primary Care Unavailable Ami Magdaleno Admitting Unavailable Ami Magdaleno Attending Unavailable Omar Hicks Attending Unavailable CalabrettaOmar Referring Unavailable Tawny, Tu Primary Care Unavailable Isckarus, Mansour Referring Unavailable Isckarus, Mansour Attending Unavailable Tawny, Tu Primary Care Unavailable Omar Hicks Attending Unavailable Tawny, Tu Primary Care Unavailable Tawny, Tu Referring Unavailable Tawny, Tu Referring Unavailable Tawny, Tu Primary Care Unavailable Isckarus, Mansour Attending Unavailable Tawny, Tu Referring Unavailable Tawny, Tu Primary Care Unavailable Audelia, Anayeli Attending Unavailable Anh Irene Attending Unavailable Tawny, Tu Primary Care Unavailable Chris Maria Attending Unavailable Tawny, Tu Primary Care Unavailable Georgi Barroso Attending Unavailable MAST, JOSELIN Primary Care Unavailable Tawny, Tu Attending Unavailable Tawny, Tu Referring Unavailable Tawny, Tu Primary Care Unavailable Destini BLUE PRINTS TRIMMER, Rhiannon Attending Unavailable Destini BLUE PRINTS TRIMMER, Rhiannon Referring Unavailable Tawny, Tu Primary Care Unavailable Destini BLUE PRINTS TRIMMER, Rhiannon Attending Unavailable Tawny, Tu Primary Care Unavailable Destini BLUE PRINTS TRIMMER, Rhiannon Referring Unavailable Tawny, Tu Primary Care Unavailable Tawny, Tu Referring Unavailable Audelia, Anayeli Attending Unavailable Chris Maria Referring Unavailable Isckarus, Mansour Attending Unavailable Tawny, Tu Primary Care Unavailable Tawny, Tu Primary Care Unavailable Tawny, Tu Referring Unavailable Audelia, Anayeli Attending Unavailable Tawny, Tu Referring Unavailable Tawny, Tu Primary Care Unavailable Kilo Morse Attending Unavailable Tawny, Tu Referring Unavailable Tawny, Tu Primary Care Unavailable Isckarus, Mansour Attending Unavailable Jose Perdomo Attending Unavailable Tawny, Tu Primary Care Unavailable Tawny, Tu Referring Unavailable Isckarus, Mansour Attending Unavailable Tawny, Tu Primary Care Unavailable Tawny, Tu Primary Care Unavailable Tawny, Tu Referring Unavailable Audelia, Anayeli Attending Unavailable Tawny, Tu Referring Unavailable Tawny, Tu Primary Care Unavailable Rhiannon Georges NP Attending Unavailable Tu Hector Referring Unavailable Tawny Tu Primary Care Unavailable Wilfrido Karimi Attending Unavailable Jose Perdomo Attending Unavailable Destini BAKER, Rhiannon Referring Unavailable Tu Hector Primary Care Unavailable Omar Hicks Consulting Unavailable Omar Hciks Attending Unavailable Omar Hicks Referring Unavailable Tawny, Tu Primary Care Unavailable Tawny Tu Primary Care Unavailable Audelia, Anayeli Attending Unavailable Audelia Anayeli Referring Unavailable Allergies Allergy Classification Reported Allergen(s) Allergy Type Date of Onset Reaction(s) Facility Alendronate (1 source) Alendronate; Translations: [alendronate] Drug Allergy Swelling / lump finding (finding), Muscle pain (finding) [facility] Cephalosporins (antibiotic) (1 source) Cefaclor; Translations: [cefaclor] Drug Allergy [facility] Macrolides (antibiotic) (1 source) Erythromycin; Translations: [erythromycin] Drug Allergy Stomach pain [facility]ioid Agonists (2 sources) Morphine; Translations: [morphine] Drug Allergy Vomiting, Itching [facility] Penicillins (antibiotic) (1 source) Penicillin; Translations: [penicillin] Drug Allergy [facility] (20 sources) Alendronate; Translations: [alendronate] Drug Allergy 023 Swelling / lump finding (finding), Muscle pain (finding) [facility] Work Phone: (20 sources) Cefaclor; Translations: [cefaclor] Drug Allergy 007 [facility] Work Phone: (20 sources) Erythromycin; Translations: [erythromycin] Drug Allergy 007 GI Upset, Nausea And Vomiting [facility] Work Phone: (20 sources) Morphine; Translations: [morphine] Drug Allergy 019 Nausea And Vomiting [facility] Work Phone: (17 sources) Penicillin; Translations: [penicillin] [facility] Work Phone: (20 sources) traMADol; Translations: [tramadol] Drug Allergy 007 Hives, Itching, Nausea And Vomiting [facility] Work Phone: (8 sources) Aspirin / oxyCODONE Hydrochloride / oxyCODONE terephthalate; Translations: [OXYCODONE UBS-PYPOEWAVJ-OHH] Drug Allergy 013 Vomiting [facility] Work Phone: (20 sources) hydroCHLOROthiazide / Triamterene; Translations: [TRIAMTERENE-HYDROCHLO ROTHIAZID] Drug Allergy 007 Rash [facility] Work Phone: (8 sources) Penicillins; Translations: [PENICILLINS] Propensity to adverse reactions 007 [facility] Work Phone: [phone] (20 sources) traMADol; Translations: [TRAMADOL HCL] Drug Allergy 007 Vomiting [facility] Work Phone: (20 sources) famciclovir; Translations: [FAMCICLOVIR] Drug Allergy 019 [facility] (20 sources) gabapentin; Translations: [GABAPENTIN] Drug Allergy 019 Unknown [facility] (20 sources) Penicillins Drug Intolerance 007 [facility] (20 sources) Erythromycin Base; Translations: [erythromycin base] Drug Allergy 017 Nausea Only [facility] (16 sources) Alendronate Drug Allergy 023 Myalgia, Other: See Comments [facility] (12 sources) Penicillins Allergy to substance [facility] (4 sources) famciclovir Drug Allergy 019 Unknown [facility] (4 sources) predniSONE; Translations: [PREDNISONE] Drug Allergy 024 Other: See Comments, Dizziness (finding) [facility] (9 sources) ezetimibe; Translations: [ezetimibe] Drug Allergy Cough (finding), Muscle pain (finding), Blister - unit of product usage (qualifier value) Chyna Aiken [facility] Comment on above: cough, myalgia, blis ters (10 sources) Opioids - Morphine Analogues Allergy to substance Hives [facility] (2 sources) calcipotriene Drug Allergy Rash [facility] (2 sources) hydroCHLOROthiazide Drug Allergy reaction [facility] Comment on above: Was told it can caus e cancer family had bad experience (1 source) Alendronate Drug Allergy [facility] (1 source) calcipotriene Drug Allergy [facility] (1 source) Cefaclor Drug Allergy [facility] (1 source) ezetimibe Drug Allergy [facility] (1 source) hydroCHLOROthiazide Drug Allergy [facility] (1 source) Penicillins Drug allergy (disorder) [facility] (1 source) traMADol Drug Allergy [facility] (1 source) Opioids - Morphine Analogues Drug allergy (disorder) [facility] Medications Current Medications Medication Drug [...] wheezing, # 30 EA, 2 Refill(s), Pharmacy: [facility], SOB (shortness of breath) COPD without [...] 1 EA, 5 Refill(s), [facility]acy: [id number], Cough Acute URI, 160, cm, 06/19/24 13:52:00 [...] 1 EA, 5 Refill(s), Pharmacy: [facility] #[id number], Cough Acute URI, 161, cm, 09/29/23 12:28:00 EDT, Height, kg, 09/29/23 12:28:00 EDT, Dosing Weight Start Date: 11/11/23 Stop Date: 05/09/24 Status: Ordered Start: 09-07-2023 End: 12-06-2023 take 2 puff(s) by inhalation four times daily as needed for wheezing Ventolin HFA MDI (90 mcg/inh) inhalation aerosol 2 puff(s), Inhalation, QID, PRN as needed for wheezing, # 1 EA, 2 Refill(s), [facility]acy: [facility] #[id number], Cough Acute URI, 161.5, cm, 07/06/23 10:58:00 EST, Height, kg, 07/06/23 10:58:00 EST, Dosing Weight Start Date: 09/07/23 Stop Date: 12/06/23 Status: Ordered Start: 01-06-2023 End: 07-05-2023 take 2 puff(s) by inhalation four times daily as needed for wheezing Ventolin HFA MDI (90 mcg/inh) inhalation aerosol 2 puff(s), Inhalation, QID, PRN as needed for wheezing, # 1 EA, 5 Refill(s), Pharmacy: [facility] #[id number], Moderate tobacco dependence Persistent cough, 159, cm, 01/06/23 13:31:00 EDT, Height, kg, 01/06/23 13:31:00 EDT, Dosing Weight Start Date: 01/06/23 Stop Date: 07/05/23 Status: Ordered Start: 07-03-2022 End: 12-30-2022 take 2 puff(s) by inhalation four times daily as needed for wheezing Ventolin HFA MDI (90 mcg/inh) inhalation aerosol 2 puff(s), Inhalation, QID, PRN as needed for wheezing, # 1 EA, 5 Refill(s), [facility]: [facility][id number], Moderate tobacco dependence, 159, cm, 07/03/22 14:04:00 EST, Height, kg, 07/03/22 14:04:00 EST, Dosing Weight Start Date: 07/03/22 Stop Date: 12/30/22 Status: Ordered Start: 07-01-2021 End: 12-28-2021 take 2 puff(s) by inhalation four times daily as needed for wheezing Ventolin HFA MDI (90 mcg/inh) inhalation aerosol 2 puff(s), Inhalation, QID, PRN as needed for wheezing, # 1 EA, 5 Refill(s), [facility]acy: [facility], Moderate tobacco dependence, 162, cm, [...] Comment on above: Take 1 capsule by [facility] three times daily as needed for cough. [...] # 90 tab(s), 1 Refill(s), [facility]: [facility] #[id number], Hyperlipidemia, 160, cm, 02/02/24 13:09:00 EDT, Height, [...] Ordered Start: 07-18-2018 take 2 tablets by [facility] twice daily guaiFENesin (MUCINEX) 600 mg 12 hr tablet Indications: Bronchitis Take 2 tablets by mouth twice daily. 60 tablet 07/18/2018 Active Comment on above: Take 2 tablets by [facility] twice daily. lidocaine 25 mg/ml / prilocaine [...] 1 mg chewable tablet (5 sources) Start: take 1 tablet by mouth [...] 0 Refill(s) Start Date: 07/03/22 Status: Ordered Currie-3 Fatty Acids (OMEGA 3 500 PO) (20 sources) Currie-3 Fatty Ac ids (OMEGA 3 500 PO) Take by mouth daily. Suspended Currie-3 Fatty Ac ids (OMEGA 3 500 PO) Take by mouth daily. Active Currie-3 Fatty Ac ids (OMEGA 3 500 PO) [...] BID, # 6.9 gram(s), 0 Refill(s), Pharmacy: [facility] #[id number], 159, cm, 09/13/24 8:34:00 EST, Height, kg, [...] qHS, # 90 tab(s), 1 Refill(s), Pharmacy: [facility] #[id number], Insomnia, 159, cm, 07/03/22 14:04:00 EST, Height, kg, 07/03/22 14:04:00 EST, Dosing Weight Start Date: 07/03/22 Status: Ordered Start: 07-01-2021 traZODone 100 mg oral tablet Dose : 100 mg = 1 tab(s), Oral, qHS, Please cancel previous prescription sent in for this medication. Increased dose., # 90 tab(s), 0 Refill(s), [facility], Insomnia, 162, cm, 07/01/21 14:16:00 EST, Height, [...] # 6 tab(s), 1 Refill(s), [facility]: [id number], 160, cm, 09/14/24 11:43:00 EST, Height, 77.9, [...] mg by mouth once daily. vitamin a 10905 unt oral capsule (3 sources) Vitamin A [...] every 6 hours. Active barium sulfate (Varibar [place], Varibar Honey) 40 % suspension 10 mL [...] Corticosteroid, beta2-Adrenergic Agonist Start: 10-03-2024 End: 10-05-2024 Pficxbfewni-Dsgpgnjhb-Uesfp t (Trelegy Ellipta) 100-62.5-25 MCG/ACT aerosol powder [...] 2024 2:15pm administer with a meal Start: 03-03-2025 take 4 capsules by m outh once [...] 1 Start: 12-23-2022 Mult. Vitamins by Henrique Orellana. [...] For oversedation/difficult to rouse, pinpoint pupils, RR Currie-3 Fatty Acids 1,000 mg capsule (15 sources) Start: 11-13-2024 End: 11-15-2024 take 1 capsule by mouth once daily Currie-3 Fatty Acids 1,000 mg capsule Discontinued 1000 mg PO daily November 13, 2024 12:00am November 15, 2024 2:40pm Start: 09-18-2024 End: 10-27-2024 take 1 capsule by mouth once daily Currie-3 Fatty Acids 1,000 mg capsule Discontinued 1000 mg PO daily September 18, 2024 1:00am October 27, 2024 12:48pm Start: 09-18-2024 take 1 capsule by [facility] once daily Currie-3 Fatty Acids 1,000 mg capsule Active 1000 mg PO daily September 18, 2024 1:00am ondansetron ODT (Zofran-ODT) disintegrating tablet 4 mg (2 sources) Start: 10-05-2024 End: 10-06-2024 take 1 tablet by mouth every eight hours as needed for nausea and vomiting ondansetron ODT (Zofran-ODT) disintegrating tablet 4 mg polyethylene glycol 3350 24663 mg powder for oral solution (2 sources) [...] day), First dose on Wed10/05/24 at 2100 Start: 10-05-2024 End: 10-06-2024 take [...] 02-11-2025 Abdomen/Pelvis W IV Cont ONLY Normal [facility] CBC W/Diff, Automatedon - Absolute Lymph 0.90 X10 3/uL Normal 0.83-4.51 [facility] Comment on above: Performed By: #### L 100.0100, L501.2450, L500.4050 ####[facility] [address] [place], [address] Absolute Neut 4.0 X10 3/uL Normal 2.0-7.7 [facility] Comment on above: Performed By: #### L 100.0100, L501.2450, L500.4050 ####[facility] [address] [place], [address] Basophils/100 WBC (Bld) 0.4 % Normal 0-[address] [facility] Comment on above: Performed By: #### L 100.0100, L501.2450, L500.4050 ####[facility] [address] [place], [address] Eosinophils/100 WBC (Bld) 0.0 % Normal 0-5 [facility] Comment on above: Performed By: #### L 100.0100, L501.2450, L500.4050 ####[facility] [address] [place], [address] Erythrocyte distribution width (RBC) [Ratio] 16.8 % High 11.6-14.6 [facility] Comment on above: Performed By: #### L 100.0100, L501.2450, L500.4050 ####[facility] [address] [place], [address] Hematocrit (Bld) [Volume fraction] 37.0 % Normal 37-47 [facility] Comment on above: Performed By: #### L 100.0100, L501.2450, L500.4050 ####[facility] [address] [place], [address] Hemoglobin (Bld) [Mass/Vol] 12.0 g/dL Normal 12.0-15.0 [facility] Comment on above: Performed By: #### L 100.0100, L501.2450, L500.4050 ####[facility] [address] [place], [address] IG% 0.400 Normal 0.0-0.9 [facility] Comment on above: Result Comment: IG% - Immature Granulocytes (promyelocytes, myelocytes andmetamyelocytes) > 1% indicates that a LEFT SHIFT is Present. Performed By: #### L 100.0100, L501.2450, L500.4050 ####[facility] [address] [place], [address] Lymphocytes/100 WBC (Bld) 16.0 % Low 19-41 [facility] Comment on above: Performed By: #### L 100.0100, L501.2450, L500.4050 ####[facility] [address] [place], [address] MCH (RBC) [Entitic mass] 30.8 pg Normal 27.0-32.0 [facility] Comment on above: Performed By: #### L 100.0100, L501.2450, L500.4050 ####[facility] [address] [place], [address] MCHC (RBC) [Mass/Vol] 32.4 g/dL Normal 32-36 [facility] Comment on above: Performed By: #### L 100.0100, L501.2450, L500.4050 ####[facility] [address] [place], [address] MCV (RBC) [Entitic vol] 95.1 fL Normal 81-[address] [facility] Comment on above: Performed By: #### L 100.0100, L501.2450, L500.4050 ####[facility] [address] [place], [address] Monocytes/100 WBC (Bld) 11.7 % High 0-10 [facility] Comment on above: Performed By: #### L 100.0100, L501.2450, L500.4050 ####[facility] [address] [place], [address] Neutrophils/100 WBC (Bld) 71.5 % High 47-70 [facility] Comment on above: Performed By: #### L 100.0100, L501.2450, L500.4050 ####[facility] [address] [place], [address] Nucleated RBC (Bld) [#/Vol] 0 10*3/uL Normal 0-5 [facility] Comment on above: Performed By: #### L 100.0100, L501.2450, L500.4050 ####[facility] [address] [place], [address] Platelet mean volume (Bld) [Entitic vol] 8.7 fL Normal 6.2-12.0 [facility] Comment on above: Performed By: #### L 100.0100, L501.2450, L500.4050 ####[facility] [address] [place], [address] Platelets (Bld) [#/Vol] 191 10*3/uL Normal 150-450 [facility] Comment on above: Performed By: #### L 100.0100, L501.2450, L500.4050 ####[facility] [address] [place], [address] RBC (Bld) [#/Vol] 3.89 10*6/uL Low 4.2-5.4 [facility] Comment on above: Performed By: #### L 100.0100, L501.2450, L500.4050 ####[facility] [address] [place], [address] RDW SD 58.0 fl High 35.1-43.9 [facility] Comment on above: Performed By: #### L 100.0100, L501.2450, L500.4050 ####[facility] [address] [place], [address] WBC (Bld) [#/Vol] 5.6 10*3/uL Normal 4.4-11.0 [facility] [facility] Comment on above: Performed By: #### L 100.0100, L501.2450, L500.4050 ####[facility] [address] [place], [address] Comprehensive Metabolic [facility] 02-11-2025 Albumin [Mass/Vol] 3.1 g/dL Low 3.4-4.8 [facility] [facility] Comment on above: Performed By: #### L 100.0100, L501.2450, L500.4050 ####[facility] [address] [place], [address] Albumin/Globulin [Mass ratio] 1.5 {ratio} Normal 0.9-2.4 [facility] Comment on above: Performed By: #### L 100.0100, L501.2450, L500.4050 ####[facility] [address] [place], [address] ALK PHOS 87 U/L Normal 35-104 [facility] Comment on above: Performed By: #### L 100.0100, L501.2450, L500.4050 ####[facility] [address] [place], [address] ALT [Catalytic activity/Vol] 21 U/L Normal <=34 [facility] Comment on above: Performed By: #### L 100.0100, L501.2450, L500.4050 ####[facility] [address] [place], [address] AST [Catalytic activity/Vol] 23 U/L Normal <=31 [facility] Comment on above: Performed By: #### L 100.0100, L501.2450, L500.4050 ####[facility] [address] [place], [address] Bilirubin [Mass/Vol] 0.31 mg/dL Normal 0.00-1.30 [facility] Comment on above: Performed By: #### L 100.0100, L501.2450, L500.4050 ####[facility] [address] [place], [address] BUN/CRE 15.3 RATIO Normal 10-20 [facility] Comment on above: Performed By: #### L 100.0100, L501.2450, L500.4050 ####[facility] [address] [place], [address] Calcium [Mass/Vol] 8.3 mg/dL Normal 7.6-11.0 [facility] [place] [facility] Comment on above: Performed By: #### L 100.0100, L501.2450, L500.4050 ####[facility] [address] [place], [address] Chloride [Moles/Vol] 100 mmol/L Normal 98-108 [facility] Comment on above: Performed By: #### L 100.0100, L501.2450, L500.4050 ####[facility] [address] [place], [address] CO2 [Moles/Vol] 26.7 mmol/L Normal 21.0-32.0 [facility] Comment on above: Performed By: #### L 100.0100, L501.2450, L500.4050 ####[facility] [address] [place], [address] Creatinine [Mass/Vol] 0.97 mg/dL Normal 0.70-1.20 [facility] Comment on above: Performed By: #### L 100.0100, L501.2450, L500.4050 ####[facility] [address] [place], [address] ECRCL 46.45 ml/min Low 50-250 [facility] Comment on above: Performed By: #### L 100.0100, L501.2450, L500.4050 ####[facility] [address] [place], [address] GAP 11 Normal 5-15 [facility] Comment on above: Performed By: #### L 100.0100, L501.2450, L500.4050 ####[facility] [address] [place], [address] GFR/1.73 sq M.predicted among non-blacks MDRD (S/P/Bld) [Vol rate/Area] 62 mL/min/{1.73_m2} Normal >60 [facility] Comment on above: Result Comment: mL/m in/1.73m2 CKD-EPI Creatinine Equation (2020) Performed By: #### L 100.0100, L501.2450, L500.4050 ####[facility] [address] [place], [address] Globulin (S) [Mass/Vol] 2.1 g/dL Low 2.2-4.[address] [facility] Comment on above: Performed By: #### L 100.0100, L501.2450, L500.4050 ####[facility] [address] [place], [address] Glucose [Mass/Vol] 105 mg/dL High 70-99 [facility] [facility] Comment on above: Performed By: #### L 100.0100, L501.2450, L500.4050 ####[facility] [address] [place], [address] Potassium [Moles/Vol] 3.1 mmol/L Low 3.3-5.1 [facility] Comment on above: Performed By: #### L 100.0100, L501.2450, L500.4050 ####[facility] [address] [place], [address] Sodium [Moles/Vol] 138 mmol/L Normal 133-145 [facility] [facility] Comment on above: Performed By: #### L 100.0100, L501.2450, L500.4050 ####[facility] [address] [place], [address] T PROT 5.2 g/dL Low 5.9-8.4 [facility] Comment on above: Performed By: #### L 100.0100, L501.2450, L500.4050 ####[facility] [address] [place], [address] Urea nitrogen [Mass/Vol] 15 mg/dL Normal 4-19 [facility] Comment on above: Performed By: #### L 100.0100, L501.2450, L500.4050 ####[facility] [address] [place], [address] Emergency Department Summary on 02-11-2025 Emergency Department Summary Normal [facility] Lipaseon 02-11-2025 Lipase [Catalytic activity/Vol] 10 U/L Low 13-75 [facility] Comment on above: Result Comment: Moira hinds note:LIPASE revised reference range effective 22.New Lipase methodology. Expected to produce lower valuesthan the previous assay method.NEW Reference Range: 13 - 75 U/L Performed By: #### L 100.0100, L501.2450, L500.4050 ####[facility] [address] [place], [address] Magnesiumon 02-11-2025 Magnesium [Mass/Vol] 2.2 mg/dL Normal 1.5-2.2 [facility] Comment on above: Performed By: #### L 501.5200 ####[facility] [address] [place], [address] Urinalysis, Completeon 02-11 BACTERIA 2+ /hpf Normal None Seen [facility] Comment on above: Order Comment: CLEAN CATCH Performed By: #### L 400.0001 ####[facility] [address] [place], [address] Mucus Ql (Urine sed) 1+ /hpf Normal [facility] Comment on above: Order Comment: CLEAN CATCH Performed By: #### L 400.0001 ####[facility] [address] [place], [address] WBC 0-5 SEEN Normal 0-5 [facility] Comment on above: Order Comment: CLEAN CATCH Performed By: #### L 400.0001 ####[facility] [address] [place], [address] EPI,SQUAMOUS 0 SEEN Normal 5-10 [facility] Comment on above: Order Comment: CLEAN CATCH Performed By: #### L 400.0001 ####[facility] [address] [place], [address] RBC 0 SEEN Normal 0-5 [facility] Comment on above: Order Comment: CLEAN CATCH Performed By: #### L 400.0001 ####[facility] [address] [place], [address] 12 Lead EKGon 01-28-2025 12 Lead EKG Normal [facility] Abdomen/Pelvis W IV Cont ONL Yon 01-28-2025 Abdomen/Pelvis W IV Cont ONLY Normal [facility] Absolute lymphocyte countOrd ered By: Bernarda Win on 01-28-2025 Lymphocytes Auto (Unsp spec) [#/Vol] 1.31 10*3/uL 0.83-4.51 [facility] Absolute neutrophil countOrd ered By: Bernarda Win on 01-28-2025 Neutrophils (Bld) [#/Vol] 3.1 10*3/uL 2.0-7.7 [facility] Anion gap in Serum or Plasma Ordered By: Bernarda Win on 01-28-2025 Anion gap [Moles/Vol] 12 mmol/L 5-15 [facility] Automated lymphocyte count a s percentage of total leukocytesOrdered By: Bernarda Win on 01-28-2025 Lymphocytes/100 WBC Auto (Unsp spec) 24.7 % 19-41 [facility] BUN/creatinine ratioOrdered By: Bernarda Win on 01-28-2025 Urea nitrogen/Creatinine [Mass ratio] 13.3 mg/mg 10-20 [facility] Basophil percentageOrdered B y: Bernarda Win on 01-28-2025 Basophils/100 WBC (Bld) 0.6 % 0-[address] [facility] Bilirubin Test strip Ql (U)O rdered By: Bernarda Win on 01-28-2025 Bilirubin Ql (U) Negative Negative [facility] Bilirubin, totalOrdered By: Bernarda Win on 01-28-2025 Bilirubin [Mass/Vol] 0.19 mg/dL 0.00-1.30 [facility] Blood manual differential co mment interpretation (narrative result)Ordered By: Bernarda Win on 01-28-2025 Manual differential comment Luiz (Bld) [Interp] SCANNED [facility] CBC W/Diff, Automatedon 01-16 Anisocytosis Ql (Bld) 2+ Normal [facility] Comment on above: Performed By: #### L 501.4021, L501.2450, L100.0100, L500.4050 ####[facility] [address] [place], [address] MICROCYTIC 1+ Normal [facility] Comment on above: Performed By: #### L 501.4021, L501.2450, L100.0100, L500.4050 ####[facility] [address] [place], [address] OVALOCYTE 1+ Normal [facility] Comment on above: Performed By: #### L 501.4021, L501.2450, L100.0100, L500.4050 ####[facility] [address] [place], [address] HYPOCHROMASIA RARE Normal [facility] Comment on above: Performed By: #### L 501.4021, L501.2450, L100.0100, L500.4050 ####[facility] [address] [place], [address] SMEAR COMMENT SCANNED Normal [facility] Comment on above: Performed By: #### L 501.4021, L501.2450, L100.0100, L500.4050 ####[facility] [address] [place], [address] CTA Chest W/WO Contraston CTA Chest W/WO Contrast Normal [facility] Carbon dioxide, total [Moles /volume] in Central venous bloodOrdered By: Bernarda Win on 01-28-2025 CO2 [Moles/Vol] 26.1 mmol/L 21.0-32.0 [facility] Chloride assayOrdered By: Dalila Win on 01-28-2025 Chloride [Moles/Vol] 100 mmol/L 98-108 [facility] Comprehensive Metabolic Prof ilon 01-28-2025 Albumin [Mass/Vol] 3.6 g/dL Normal 3.4-4.8 [facility] Comment on above: Performed By: #### L 501.4021, L501.2450, L100.0100, L500.4050 ####[facility] [address] [place], [address] Albumin/Globulin [Mass ratio] 1.6 {ratio} Normal 0.9-2.4 [facility] Comment on above: Performed By: #### L 501.4021, L501.2450, L100.0100, L500.4050 ####[facility] [address] [place], [address] ALK PHOS 83 U/L Normal 35-104 [facility] Comment on above: Performed By: #### L 501.4021, L501.2450, L100.0100, L500.4050 ####[facility] [address] [place], [address] ALT [Catalytic activity/Vol] 23 U/L Normal <=34 [facility] Comment on above: Performed By: #### L 501.4021, L501.2450, L100.0100, L500.4050 ####[facility] [address] [place], [address] AST [Catalytic activity/Vol] 22 U/L Normal <=31 [facility] Comment on above: Performed By: #### L 501.4021, L501.2450, L100.0100, L500.4050 ####[facility] [address] [place], [address] Bilirubin [Mass/Vol] 0.19 mg/dL Normal 0.00-1.30 [facility] Comment on above: Performed By: #### L 501.4021, L501.2450, L100.0100, L500.4050 ####[facility] [address] [place], [address] BUN/CRE 13.3 RATIO Normal 10-20 [facility] Comment on above: Performed By: #### L 501.4021, L501.2450, L100.0100, L500.4050 ####[facility] [address] [place], [address] Calcium [Mass/Vol] 8.8 mg/dL Normal 7.6-11.0 [facility] Comment on above: Performed By: #### L 501.4021, L501.2450, L100.0100, L500.4050 ####[facility] [address] [place], [address] Chloride [Moles/Vol] 100 mmol/L Normal 98-108 [facility] Comment on above: Performed By: #### L 501.4021, L501.2450, L100.0100, L500.4050 ####[facility] [address] [place], [address] CO2 [Moles/Vol] 26.1 mmol/L Normal 21.0-32.0 [facility] Comment on above: Performed By: #### L 501.4021, L501.2450, L100.0100, L500.4050 ####[facility] [address] [place], [address] Creatinine [Mass/Vol] 0.83 mg/dL Normal 0.70-1.20 [facility] Comment on above: Performed By: #### L 501.4021, L501.2450, L100.0100, L500.4050 ####[facility] [address] [place], [address] ECRCL 56.95 ml/min Normal 50-250 [facility] Comment on above: Performed By: #### L 501.4021, L501.2450, L100.0100, L500.4050 ####[facility] [address] [place], [address] GAP 12 Normal 5-15 [facility] Comment on above: Performed By: #### L 501.4021, L501.2450, L100.0100, L500.4050 ####[facility] [address] [place], [address] GFR/1.73 sq M.predicted among non-blacks MDRD (S/P/Bld) [Vol rate/Area] 74 mL/min/{1.73_m2} Normal >60 [facility] Comment on above: Result Comment: mL/m in/1.73m2 CKD-EPI Creatinine Equation (2020) Performed By: #### L 501.4021, L501.2450, L100.0100, L500.4050 ####[facility] [address] [place], [address] Globulin (S) [Mass/Vol] 2.3 g/dL Normal 2.2-4.2 [facility] Comment on above: Performed By: #### L 501.4021, L501.2450, L100.0100, L500.4050 ####[facility] [address] [place], [address] Glucose [Mass/Vol] 111 mg/dL High 70-99 [facility] [facility] Comment on above: Performed By: #### L 501.4021, L501.2450, L100.0100, L500.4050 ####[facility] [address] [place], [address] Potassium [Moles/Vol] 3.5 mmol/L Normal 3.3-5.1 [facility] Comment on above: Performed By: #### L 501.4021, L501.2450, L100.0100, L500.4050 ####[facility] [address] [place], [address] Sodium [Moles/Vol] 137 mmol/L Normal 133-145 [facility] [place] [facility] Comment on above: Performed By: #### L 501.4021, L501.2450, L100.0100, L500.4050 ####[facility] [address] [place], [address] T PROT 5.9 g/dL Normal 5.9-8.4 [facility] Comment on above: Performed By: #### L 501.4021, L501.2450, L100.0100, L500.4050 ####[facility] [address] [place], [address] Urea nitrogen [Mass/Vol] 11 mg/dL Normal 4-19 [facility] Comment on above: Performed By: #### L 501.4021, L501.2450, L100.0100, L500.4050 ####[facility] [address] [place], [address] Emergency Department Summary on 01-28-2025 Emergency Department Summary Normal [facility] Eosinophil percentageOrdered By: Bernarda Win on 01-28-2025 Eosinophils/100 WBC (Bld) 0.0 % 0-5 [facility] Erythrocyte distribution wid th ratioOrdered By: Bernarda Win on 01-28-2025 Erythrocyte distribution width (RBC) [Ratio] 21.9 % High 11.6-14.6 [facility] Erythrocyte distribution wid th standard deviationOrdered By: Bernarda Win on 01-28-2025 Erythrocyte distribution width (RBC) [Ratio] 76.0 fl High 35.1-43.9 [facility] Glomerular filtration rate ( GFR) estimation/1.73 sq m using serum, plasma, or whole bOrdered By: Bernarda Win on 01-28-2025 GFR/1.73 sq M.predicted among non-blacks MDRD (S/P/Bld) [Vol rate/Area] 74 mL/min/{1.73_m2} >60 [facility] Comment on above: mL/min/1.73m2 CKD-EP I Creatinine Equation (2020) Hematocrit Auto (Bld) [Volum e fraction]Ordered By: Bernarda Win on 01-28-2025 Hematocrit (Bld) [Volume fraction] 31.2 % Low 37-47 [facility] Hemoglobin measurementOrdere d By: Bernarda Win on 01-28-2025 Hemoglobin (Bld) [Mass/Vol] 10.2 g/dL Low 12.0-15.0 [facility] Hypochromatic red blood cell detectionOrdered By: Bernarda Win on 01-28-2025 Hypochromia Ql (Bld) RARE [facility] Immature granulocytes/100 WB C Auto (Bld)Ordered By: Bernarda Win on 01-28-2025 Immature granulocytes/100 WBC (Bld) 0.400 % 0.0-0.9 [facility] Comment on above: IG% - Immature Granu locytes (promyelocytes, myelocytes and metamyelocytes) > 1% indicates that a LEFT SHIFT is Present. Ketones Test strip Ql (U)Ord ered By: Bernarda Win on 01-28-2025 Ketones Ql (U) Negative Negative [facility] L499.0042on 01-28-2025 Trop T High Sen 16 ng/L High <=14 [facility] Comment on above: Performed By: #### L 499.0042 ####[facility] [address] [facility] [place], [address] L501.4021on 01-28-2025 Trop T High Sen 13 ng/L Normal <=14 [facility] Comment on above: Performed By: #### L 501.4021, L501.2450, L100.0100, L500.4050 ####[facility] [address] [facility] [place], [address] L503.7505on 01-28-2025 Natriuretic peptide B (Bld) [Mass/Vol] 167 pg/mL Normal <=900 [facility] Comment on above: Result Comment: Hear t Failure Unlikely: < 300 pg/mLHeart Failure Likely< 50 Years: > 450 pg/mL50-75 Years: > 900 pg/mL>75 Years: > 1800 pg/mL Performed By: #### L 503.7505 ####[facility] [address] [place], [place], [address] Laboratory - Chemistry and C hemistry - challengeOrdered By: Bernarda Win on 01-28-2025 AST [Catalytic activity/Vol] 22 U/L <32 [facility] Laboratory - Hematology and Cell countsOrdered By: Bernarda Win on 01-28-2025 Anisocytosis Ql (Bld) 2+ [facility] Lipaseon 01-28-2025 Lipase [Catalytic activity/Vol] 10 U/L Low 13-75 [facility] Comment on above: Result Comment: Moira hinds note:LIPASE revised reference range effective 22.New Lipase methodology. Expected to produce lower valuesthan the previous assay method.NEW Reference Range: 13 - 75 U/L Performed By: #### L 501.4021, L501.2450, L100.0100, L500.4050 ####[facility] [address] [place], [address] Lipase measurementOrdered By : Bernarda Win on 01-28-2025 Lipase [Catalytic activity/Vol] 10 U/L Low 13-75 [facility] Comment on above: Please note:LIPASE r evised reference range effective 22. New Lipase methodology. Expected to produce lower values than the previous assay method. NEW Reference Range: 13 - 75 U/L MCV (mean corpuscular volume ) determinationOrdered By: Bernarda Win on 01-28-2025 MCV (RBC) [Entitic vol] 94.5 fL 81-[address] [facility] Mean corpuscular hemoglobin (MCH) determinationOrdered By: Bernarda Win on 01-28-2025 MCH (RBC) [Entitic mass] 30.9 pg 27.0-32.0 [facility] Mean corpuscular hemoglobin concentration (MCHC) determinationOrdered By: Bernarda Win on 01-28-2025 MCHC (RBC) [Mass/Vol] 32.7 g/dL 32-36 [facility] Mean platelet volume determi nationOrdered By: Bernarda Win on 01-28-2025 Platelet mean volume (Bld) [Entitic vol] 8.6 fL 6.2-12.0 [facility] Microscopic analysis of urin e for red blood cells (RBC)Ordered By: Bernarda Win on 01-28-2025 Microscopic analysis of urine for red blood cells (RBC) 0-5 SEEN /hpf 0-5 [facility] Monocyte percentageOrdered B y: Bernarda Win on 01-28-2025 Monocytes/100 WBC (Bld) 16.2 % High 0-[address] [facility] Mucus LM Ql (Urine sed)Order ed By: Bernarda Win on 01-28-2025 Mucus Ql (Urine sed) 0 SEEN /hpf [facility] Natriuretic peptide.B prohor mikala N-Terminal [Mass/volume] in Serum or PlasmaOrdered By: Bernarda Win on 01-28-2025 Natriuretic peptide.B prohormone N-Terminal [Mass/Vol] 167 pg/mL <900 [facility] Comment on above: Heart Failure Unlike ly: < 300 pg/mLHeart Failure Likely< 50 Years: > 450 pg/mL50-75 Years: > 900 pg/mL>75 Years: > 1800 pg/mL Neutrophil percentageOrdered By: Bernarda Win on 01-28-2025 Neutrophils/100 WBC (Bld) 58.1 % 47-70 [facility] Nitrite Test strip Ql (U)Ord ered By: Bernarda Win on 01-28-2025 Nitrite Ql (U) Negative Negative [facility] Nucleated red blood cell per centageOrdered By: Bernarda Win on 01-28-2025 Nucleated RBC/100 WBC (Bld) [Ratio] 0 % 0-5 [facility] Ovalocyte detectionOrdered B y: Bernarda Win on 01-28-2025 Ovalocytes LM Ql (Bld) 1+ [facility] Platelet countOrdered By: Dalila Win on 01-28-2025 Platelets (Bld) [#/Vol] 439 10*3/uL 150-450 [facility] Potassium measurement (mass/ volume)Ordered By: Bernarda Win on 01-28-2025 Potassium (Unsp spec) [Mass/Vol] 3.5 mmol/L 3.3-5.1 [facility] Protein Test strip Ql (U)Ord ered By: Bernarda Win on 01-28-2025 Protein Ql (U) 15 mg/dl High Negative [facility] RBC Auto (Bld) [#/Vol]Ordere d By: Bernarda Win on 01-28-2025 RBC (Bld) [#/Vol] 3.30 10*6/uL Low 4.2-5.4 [facility] Serum creatinine measurement (mass/volume)Ordered By: Bernarda Win on 01-28-2025 Creatinine [Mass/Vol] 0.83 mg/dL 0.70-1.20 [facility] Serum globulin measurementOr dered By: Bernarda Win on 01-28-2025 Globulin (S) [Mass/Vol] 2.3 g/dL 2.2-4.[address] [facility] Serum glucose measurement (m ass/volume)Ordered By: Bernarda Win on 01-28-2025 Glucose [Mass/Vol] 111 mg/dL High 70-99 [facility] Serum or plasma alanine vicente otransferase (ALT) measurementOrdered By: Bernarda Win 01-28-2025 ALT [Catalytic activity/Vol] 23 U/L <35 [facility] Serum or plasma albumin usman urement (mass/volume)Ordered By: Bernarda Win 01-28-2025 Albumin [Mass/Vol] 3.6 g/dL 3.4-4.8 [facility] Serum or plasma albumin/glob ulin mass ratioOrdered By: Bernarda Win 01-28-2025 Albumin/Globulin [Mass ratio] 1.6 {ratio} 0.9-2.4 [facility] Serum or plasma alkaline marcela sphatase measurementOrdered By: Bernarda Win 01-28-2025 ALP [Catalytic activity/Vol] 83 U/L 35-104 [facility] Serum or plasma calcium usman urement (mass/volume)Ordered By: Bernarda Win 01-28-2025 Calcium [Mass/Vol] 8.8 mg/dL 7.6-11.0 [facility] Serum or plasma urea nitroge n measurement (mass/volume)Ordered By: Bernarda Win on 01-28-2025 Urea nitrogen [Mass/Vol] 11 mg/dL 4-19 [facility] Sodium levelOrdered By: David Win on 01-28-2025 Sodium [Moles/Vol] 137 mmol/L 133-145 [facility] Squamous epithelial cells de tection in urine sediment by light microscopyOrdered By: Bernarda Win on 01-28-2025 Epithelial cells.squamous LM Ql (Urine sed) 0-5 SEEN /hpf - [facility] Total proteinOrdered By: Sanjeev Win on 01-28-2025 Protein [Mass/Vol] 5.9 g/dL 5.9-8.4 [facility] Troponin T.cardiac [Mass/vol ume] in Serum or Plasma by High sensitivity methodOrdered By: Bernarda Win on 01-28-2025 Troponin T.cardiac High sensitivity method [Mass/Vol] 16 ng/L High <14 [facility] Troponin T.cardiac High sensitivity method [Mass/Vol] 13 ng/L <14 [facility] Comment on above: Delta: 17 on 5-1440 Urinalysis, Completeon 01-28 EPI,SQUAMOUS 0-5 SEEN Normal - [facility] Comment on above: Order Comment: CLEAN CATCH Performed By: #### L 400.0001 ####[facility] [address] [place], [place], [phone] 0-5 SEEN Normal 0-5 [facility] Comment on above: Order Comment: CLEAN CATCH Performed By: #### L 400.0001 ####[facility] [address] [place], [address] WBC 0-5 SEEN Normal 0-5 [facility] Comment on above: Order Comment: CLEAN CATCH Performed By: #### L 400.0001 ####[facility] [address] [place], [address] BACTERIA 0 SEEN Normal None Seen [facility] Comment on above: Order Comment: CLEAN CATCH Performed By: #### L 400.0001 ####[facility] [address] [place], [place], [address] Mucus Ql (Urine sed) 0 SEEN Normal [facility] Comment on above: Order Comment: CLEAN CATCH Performed By: #### L 400.0001 ####[facility] [address] [place], [place], [address] Urine clarityOrdered By: Sanjeev Win on 01-28-2025 Clarity (U) Clear Clear [facility] Urine color determinationOrd ered By: Bernarda Win on 01-28-2025 Color (U) Yellow Yellow [facility] Urine glucose detectionOrder ed By: Bernarda Win on 01-28-2025 Glucose Ql (U) Normal mg/dl Normal [facility] Urine leukocyte esterase det ection by dipstickOrdered By: Bernarda Win on 01-28-2025 Leukocyte esterase Test strip Ql (U) Negative Negative [facility] Urine pHOrdered By: Yun Win on 01-28-2025 pH (U) 6.0 [pH] 5.0 - 8.0 [facility] Urine sediment bacteria coun t by microscopy (number/high power field)Ordered By: Bernarda Win on 01-28-2025 Bacteria LM.HPF (Urine sed) [#/Area] 0 /[HPF] None Seen [facility] Urine specific gravity measu rementOrdered By: Bernarda Win on 01-28-2025 Specific gravity (U) [Rel density] 1.020 1.002-1.030 [facility] Urine urobilinogen measureme ntOrdered By: Bernarda Win on 01-28-2025 Urobilinogen Ql (U) Normal mg/dl Normal [facility] White blood cell (WBC) count Ordered By: Bernarda Win on 01-28-2025 WBC (Bld) [#/Vol] 5.3 10*3/uL 4.4-11.0 [facility] White blood cell countOrdere d By: Bernarda Win on 01-28-2025 White blood cell count 0-5 SEEN /hpf 0-5 [facility] Absolute lymphocyte countOrd ered By: Alis Chance on 01-23-2025 Lymphocytes Auto (Unsp spec) [#/Vol] 1.12 10*3/uL 0.83-4.51 [facility] Absolute neutrophil countOrd ered By: [facility] on 01-23-2025 Neutrophils (Bld) [#/Vol] 4.4 10*3/uL 2.0-7.7 [facility] Anion gap in Serum or Plasma Ordered By: Alis Chance on 01-23-2025 Anion gap [Moles/Vol] 10 mmol/L 5-15 [facility] Automated lymphocyte count a s percentage of total leukocytesOrdered By: Alis Chance on 01-23-2025 Lymphocytes/100 WBC Auto (Unsp spec) 18.2 % Low 19-41 [facility] BUN/creatinine ratioOrdered By: Alis Chance on 01-23-2025 Urea nitrogen/Creatinine [Mass ratio] 9.4 mg/mg Low 10-20 [facility] Basophil percentageOrdered B y: Alis Chance on 01-23-2025 Basophils/100 WBC (Bld) 0.3 % 0-[address] [facility] Bilirubin, totalOrdered By: Alis Chance on 01-23-2025 Bilirubin [Mass/Vol] 0.19 mg/dL 0.00-1.30 [facility] CBC W/Diff, Automatedon Anisocytosis Ql (Bld) 2+ Normal [facility] Comment on above: Performed By: #### L 500.4050, L100.0100 ####[facility] [address] [place], [address] Carbon dioxide, total [Moles /volume] in Central venous bloodOrdered By: Alis Chance on 01-23-2025 CO2 [Moles/Vol] 24.2 mmol/L 21.0-32.0 [facility] Chloride assayOrdered By: Gretchen Chance on 01-23-2025 Chloride [Moles/Vol] 106 mmol/L 98-108 [facility] Comprehensive Metabolic Prof ilon 01-23-2025 Albumin [Mass/Vol] 3.6 g/dL Normal 3.4-4.8 [facility] Comment on above: Performed By: #### L 500.4050, L100.0100 ####[facility] [address] [place], [address] Albumin/Globulin [Mass ratio] 1.9 {ratio} Normal 0.9-2.4 [facility] Comment on above: Performed By: #### L 500.4050, L100.0100 ####[facility] [address] [place], [address] ALK PHOS 81 U/L Normal 35-104 [facility] Comment on above: Performed By: #### L 500.4050, L100.0100 ####[facility] [address] [place], [address] ALT [Catalytic activity/Vol] 17 U/L Normal <=34 [facility] Comment on above: Performed By: #### L 500.4050, L100.0100 ####[facility] [address] [place], [address] AST [Catalytic activity/Vol] 19 U/L Normal <=31 [facility] Comment on above: Performed By: #### L 500.4050, L100.0100 ####[facility] [address] [place], [address] Bilirubin [Mass/Vol] 0.19 mg/dL Normal 0.00-1.30 [facility] Comment on above: Performed By: #### L 500.4050, L100.0100 ####[facility] [address] [place], [address] BUN/CRE 9.4 RATIO Low 10-20 [facility] Comment on above: Performed By: #### L 500.4050, L100.0100 ####[facility] [address] [place], [address] Calcium [Mass/Vol] 8.7 mg/dL Normal 7.6-11.0 [facility] [place] [facility] Comment on above: Performed By: #### L 500.4050, L100.0100 ####[facility] [address] [place], [address] Chloride [Moles/Vol] 106 mmol/L Normal 98-108 [facility] Comment on above: Performed By: #### L 500.4050, L100.0100 ####[facility] [address] [place], [address] CO2 [Moles/Vol] 24.2 mmol/L Normal 21.0-32.0 [facility] Comment on above: Performed By: #### L 500.4050, L100.0100 ####[facility] [address] [place], [address] Creatinine [Mass/Vol] 0.78 mg/dL Normal 0.70-1.20 [facility] Comment on above: Performed By: #### L 500.4050, L100.0100 ####[facility] [address] [place], [address] ECRCL 59.32 ml/min Normal 50-250 [facility] Comment on above: Performed By: #### L 500.4050, L100.0100 ####[facility] [address] [place], [address] GAP 10 Normal 5-15 [facility] Comment on above: Performed By: #### L 500.4050, L100.0100 ####[facility] [address] [place], [address] GFR/1.73 sq M.predicted among non-blacks MDRD (S/P/Bld) [Vol rate/Area] 81 mL/min/{1.73_m2} Normal >60 [facility] Comment on above: Result Comment: mL/m in/1.73m2 CKD-EPI Creatinine Equation (2020) Performed By: #### L 500.4050, L100.0100 ####[facility] [address] [place], [address] Globulin (S) [Mass/Vol] 1.9 g/dL Low 2.2-4.2 [facility] Comment on above: Performed By: #### L 500.4050, L100.0100 ####[facility] [address] [place], [address] Glucose [Mass/Vol] 98 mg/dL Normal 70-99 [facility] [place] [facility] Comment on above: Performed By: #### L 500.4050, L100.0100 ####[facility] [address] [place], [address] Potassium [Moles/Vol] 3.9 mmol/L Normal 3.3-5.1 [facility] Comment on above: Performed By: #### L 500.4050, L100.0100 ####[facility] [address] [place], [address] Sodium [Moles/Vol] 140 mmol/L Normal 133-145 [facility] [place] [facility] Comment on above: Performed By: #### L 500.4050, L100.0100 ####[facility] [address] [place], [address] T PROT 5.5 g/dL Low 5.9-8.4 [facility] Comment on above: Performed By: #### L 500.4050, L100.0100 ####[facility] [address] [place], [address] Urea nitrogen [Mass/Vol] 7 mg/dL Normal 4-19 [facility] Comment on above: Performed By: #### L 500.4050, L100.0100 ####[facility] [address] [place], [address] Eosinophil percentageOrdered By: Alis Chance on 01-23-2025 Eosinophils/100 WBC (Bld) 0.0 % 0-5 [facility] Erythrocyte distribution wid th ratioOrdered By: [facility] on 01-23-2025 Erythrocyte distribution width (RBC) [Ratio] 23.9 % High 11.6-14.6 [facility] Erythrocyte distribution wid th standard deviationOrdered By: [facility] on 01-23-2025 Erythrocyte distribution width (RBC) [Ratio] 84.6 fl High 35.1-43.9 [facility] Glomerular filtration rate ( GFR) estimation/1.73 sq m using serum, plasma, or whole bOrdered By: [facility] on 01-23-2025 GFR/1.73 sq M.predicted among non-blacks MDRD (S/P/Bld) [Vol rate/Area] 81 mL/min/{1.73_m2} >60 [facility] Comment on above: mL/min/1.73m2 CKD-EP I Creatinine Equation (2020) Hematocrit Auto (Bld) [Volum e fraction]Ordered By: Alis Chance on 01-23-2025 Hematocrit (Bld) [Volume fraction] 29.8 % Low 37-47 [facility] Hemoglobin measurementOrdere d By: Alis Chance on 01-23-2025 Hemoglobin (Bld) [Mass/Vol] 9.5 g/dL Low 12.0-15.0 [facility] Immature granulocytes/100 WB C Auto (Bld)Ordered By: Alis Chance on 01-23-2025 Immature granulocytes/100 WBC (Bld) 0.800 % 0.0-0.9 [facility] Comment on above: IG% - Immature Granu locytes (promyelocytes, myelocytes and metamyelocytes) > 1% indicates that a LEFT SHIFT is Present. Laboratory - Chemistry and C hemistry - challengeOrdered By: Alis Chance on 01-23-2025 AST [Catalytic activity/Vol] 19 U/L <32 [facility] Laboratory - Hematology and Cell countsOrdered By: Alis Chance on 01-23-2025 Anisocytosis Ql (Bld) 2+ [facility] MCV (mean corpuscular volume ) determinationOrdered By: Alis Chance on 01-23-2025 MCV (RBC) [Entitic vol] 96.4 fL 81-[address] [facility] Mean corpuscular hemoglobin (MCH) determinationOrdered By: Alis Chance on 01-23-2025 MCH (RBC) [Entitic mass] 30.7 pg 27.0-32.0 [facility] Mean corpuscular hemoglobin concentration (MCHC) determinationOrdered By: Alis Chance on 01-23-2025 MCHC (RBC) [Mass/Vol] 31.9 g/dL Low 32-36 [facility] Mean platelet volume determi nationOrdered By: Alis Chance on 01-23-2025 Platelet mean volume (Bld) [Entitic vol] 9.0 fL 6.2-12.0 [facility] Monocyte percentageOrdered B y: Alis Chance on 01-23-2025 Monocytes/100 WBC (Bld) 9.7 % 0-[address] [facility] Neutrophil percentageOrdered By: Alis Chance on 01-23-2025 Neutrophils/100 WBC (Bld) 71.0 % High 47-70 [facility] Nucleated red blood cell per centageOrdered By: Alis Chance on 01-23-2025 Nucleated RBC/100 WBC (Bld) [Ratio] 0 % 0-5 [facility] Oncology Visit Reporton 07-0 Oncology Visit Report Normal [facility] Platelet countOrdered By: Gretchen Chance on 01-23-2025 Platelets (Bld) [#/Vol] 295 10*3/uL 150-450 [facility] Potassium measurement (mass/ volume)Ordered By: Alis Chance on 01-23-2025 Potassium (Unsp spec) [Mass/Vol] 3.9 mmol/L 3.3-5.1 [facility] RBC Auto (Bld) [#/Vol]Ordere d By: Alis Chance on 01-23-2025 RBC (Bld) [#/Vol] 3.09 10*6/uL Low 4.2-5.4 [facility] Serum creatinine measurement (mass/volume)Ordered By: Alis Chance on 01-23-2025 Creatinine [Mass/Vol] 0.78 mg/dL 0.70-1.20 [facility] Serum globulin measurementOr dered By: Alis Chance on 01-23-2025 Globulin (S) [Mass/Vol] 1.9 g/dL Low 2.2-4.2 [facility] Serum glucose measurement (m ass/volume)Ordered By: Alis Chance on 01-23-2025 Glucose [Mass/Vol] 98 mg/dL 70-99 [facility] [place] [facility] Serum or plasma alanine vicente otransferase (ALT) measurementOrdered By: Alis Chance on 01-23-2025 ALT [Catalytic activity/Vol] 17 U/L <35 [facility] Serum or plasma albumin usman urement (mass/volume)Ordered By: Alis Chance on 01-23-2025 Albumin [Mass/Vol] 3.6 g/dL 3.4-4.8 [facility] [place] [facility] Serum or plasma albumin/glob ulin mass ratioOrdered By: Alis Chance on 01-23-2025 Albumin/Globulin [Mass ratio] 1.9 {ratio} 0.9-2.4 [facility] Serum or plasma alkaline marcela sphatase measurementOrdered By: Alis Chance on 01-23-2025 ALP [Catalytic activity/Vol] 81 U/L 35-104 [facility] Serum or plasma calcium usman urement (mass/volume)Ordered By: Alis Chance on 01-23-2025 Calcium [Mass/Vol] 8.7 mg/dL 7.6-11.0 [facility] [place] [facility] Serum or plasma urea nitroge n measurement (mass/volume)Ordered By: Alis Chance on 01-23-2025 Urea nitrogen [Mass/Vol] 7 mg/dL 4-19 [facility] Sodium levelOrdered By: Maurice Chance on 01-23-2025 Sodium [Moles/Vol] 140 mmol/L 133-145 [facility] [place] [facility] Total proteinOrdered By: Rob Chance on 07-08-2025 Protein [Mass/Vol] 5.5 g/dL Low 5.9-8.4 [facility] [place] [facility] White blood cell (WBC) count Ordered By: Alis Chance on 01-23-2025 WBC (Bld) [#/Vol] 6.2 10*3/uL 4.4-11.0 [facility] [place] [facility] CT Chest, Abd, Pel w/Contras ton 01-16-2025 CT Chest, Abd, Pel w/Contrast Normal [facility] Absolute lymphocyte countOrd ered By: Alis Chance on 01-02-2025 Lymphocytes Auto (Unsp spec) [#/Vol] 1.38 10*3/uL 0.83-4.51 [facility] Absolute neutrophil countOrd ered By: Alis Chance on 01-02-2025 Neutrophils (Bld) [#/Vol] 4.2 10*3/uL 2.0-7.7 [facility] Anion gap in Serum or Plasma Ordered By: Alis Chance on 01-02-2025 Anion gap [Moles/Vol] 14 mmol/L 5-15 [facility] Automated lymphocyte count a s percentage of total leukocytesOrdered By: Alis Chance on 01-02-2025 Lymphocytes/100 WBC Auto (Unsp spec) 21.8 % 19-41 [facility] BUN/creatinine ratioOrdered By: Alsi Chance on 01-02-2025 Urea nitrogen/Creatinine [Mass ratio] 6.2 mg/mg Low 10-20 [facility] Basophil percentageOrdered B y: Alis Chance on 01-02-2025 Basophils/100 WBC (Bld) 0.3 % 0-[address] [facility] Bilirubin, totalOrdered By: Alis Chance on 01-02-2025 Bilirubin [Mass/Vol] 0.23 mg/dL 0.00-1.30 [facility] Blood manual differential co mment interpretation (narrative result)Ordered By: Alis Chance on 01-02-2025 Manual differential comment Luiz (Bld) [Interp] SCANNED [facility] CBC W/Diff, Automatedon 12-17 Anisocytosis Ql (Bld) 2+ Normal [facility] Comment on above: Performed By: #### L 100.0100, L500.4050 ####[facility] [address] [place], [address] SMEAR COMMENT SCANNED Normal [facility] Comment on above: Performed By: #### L 100.0100, L500.4050 ####[facility] [address] [place], [address] Carbon dioxide, total [Moles /volume] in Central venous bloodOrdered By: Alis Chance on 01-02-2025 CO2 [Moles/Vol] 25.0 mmol/L 21.0-32.0 [facility] Chloride assayOrdered By: Gretchen Chance on 01-02-2025 Chloride [Moles/Vol] 103 mmol/L 98-108 [facility] Comprehensive Metabolic Prof ilon 01-02-2025 Bilirubin [Mass/Vol] 0.23 mg/dL Normal 0.00-1.30 [facility] Comment on above: Performed By: #### L 100.0100, L500.4050 ####[facility] [address], [address] Eosinophil percentageOrdered By: Alis Chance on 01-02-2025 Eosinophils/100 WBC (Bld) 0.0 % 0-5 [facility] Erythrocyte distribution wid th ratioOrdered By: Alis Chance on 01-02-2025 Erythrocyte distribution width (RBC) [Ratio] 24.7 % High 11.6-14.6 [facility] Erythrocyte distribution wid th standard deviationOrdered By: Alis Chance on 01-02-2025 Erythrocyte distribution width (RBC) [Ratio] 81.8 fl High 35.1-43.9 [facility] Glomerular filtration rate ( GFR) estimation/1.73 sq m using serum, plasma, or whole bOrdered By: Alis Chance on 01-02-2025 GFR/1.73 sq M.predicted among non-blacks MDRD (S/P/Bld) [Vol rate/Area] 58 mL/min/{1.73_m2} Low >60 [facility] [facility] Comment on above: mL/min/1.73m2 CKD-EP I Creatinine Equation (2020) Hematocrit Auto (Bld) [Volum e fraction]Ordered By: Alis Chance on 01-02-2025 Hematocrit (Bld) [Volume fraction] 32.9 % Low 37-47 [facility] Hemoglobin measurementOrdere d By: Alis Chance on 01-02-2025 Hemoglobin (Bld) [Mass/Vol] 10.6 g/dL Low 12.0-15.0 [facility] Immature granulocytes/100 WB C Auto (Bld)Ordered By: Alis Chance on 01-02-2025 Immature granulocytes/100 WBC (Bld) 0.500 % 0.0-0.9 [facility] Comment on above: IG% - Immature Granu locytes (promyelocytes, myelocytes and metamyelocytes) > 1% indicates that a LEFT SHIFT is Present. Laboratory - Chemistry and C hemistry - challengeOrdered By: Alis Chance on 01-02-2025 AST [Catalytic activity/Vol] 21 U/L <32 [facility] Laboratory - Hematology and Cell countsOrdered By: Alis Chance on 01-02-2025 Anisocytosis Ql (Bld) 2+ [facility] MCV (mean corpuscular volume ) determinationOrdered By: Alis Chance on 01-02-2025 MCV (RBC) [Entitic vol] 90.9 fL 81-[address] [facility] Mean corpuscular hemoglobin (MCH) determinationOrdered By: Alis Chance on 01-02-2025 MCH (RBC) [Entitic mass] 29.3 pg 27.0-32.0 [facility] Mean corpuscular hemoglobin concentration (MCHC) determinationOrdered By: Alis Chance on 01-02-2025 MCHC (RBC) [Mass/Vol] 32.2 g/dL 32-36 [facility] Mean platelet volume determi nationOrdered By: Alis Chance on 01-02-2025 Platelet mean volume (Bld) [Entitic vol] 8.6 fL 6.2-12.0 [facility] Monocyte percentageOrdered B y: Alis Chance on 01-02-2025 Monocytes/100 WBC (Bld) 10.9 % High 0-[address] [facility] Neutrophil percentageOrdered By: Alis Chance on 01-02-2025 Neutrophils/100 WBC (Bld) 66.5 % 47-70 [facility] Nucleated red blood cell per centageOrdered By: Alis Chance on 01-02-2025 Nucleated RBC/100 WBC (Bld) [Ratio] 0 % 0-5 [facility] Oncology Visit Reporton 12-17 Oncology Visit Report Normal [facility] Platelet countOrdered By: Gretchen Chance on 01-02-2025 Platelets (Bld) [#/Vol] 228 10*3/uL 150-450 [facility] Potassium measurement (mass/ volume)Ordered By: Alis Chance on 01-02-2025 Potassium (Unsp spec) [Mass/Vol] 3.4 mmol/L 3.3-5.1 [facility] RBC Auto (Bld) [#/Vol]Ordere d By: Alis Chance on 01-02-2025 RBC (Bld) [#/Vol] 3.62 10*6/uL Low 4.2-5.4 [facility] Serum creatinine measurement (mass/volume)Ordered By: Alis Chance on 01-02-2025 Creatinine [Mass/Vol] 1.02 mg/dL 0.70-1.20 [facility] Serum globulin measurementOr dered By: Alis Chance on 01-02-2025 Globulin (S) [Mass/Vol] 2.4 g/dL 2.2-4.2 [facility] Serum glucose measurement (m ass/volume)Ordered By: Alis Chance on 01-02-2025 Glucose [Mass/Vol] 106 mg/dL High 70-99 [facility] [place] [facility] Serum or plasma alanine vicente otransferase (ALT) measurementOrdered By: Alis Chance on 01-02-2025 ALT [Catalytic activity/Vol] 14 U/L <35 [facility] Serum or plasma albumin usman urement (mass/volume)Ordered By: Alis Chance on 01-02-2025 Albumin [Mass/Vol] 4.2 g/dL 3.4-4.8 [facility] [place] [facility] Serum or plasma albumin/glob ulin mass ratioOrdered By: Alis Chance on 01-02-2025 Albumin/Globulin [Mass ratio] 1.8 {ratio} 0.9-2.4 [facility] Serum or plasma alkaline marcela sphatase measurementOrdered By: Alis Chance on 01-02-2025 ALP [Catalytic activity/Vol] 79 U/L 35-104 [facility] Serum or plasma calcium usman urement (mass/volume)Ordered By: Alis Chance on 01-02-2025 Calcium [Mass/Vol] 9.6 mg/dL 7.6-11.0 [facility] [place] [facility] Serum or plasma urea nitroge n measurement (mass/volume)Ordered By: Alis Chance on 01-02-2025 Urea nitrogen [Mass/Vol] 6 mg/dL 4-19 [facility] Sodium levelOrdered By: Maurice Chance on 01-02-2025 Sodium [Moles/Vol] 142 mmol/L 133-145 [facility] [place] [facility] Total proteinOrdered By: Rob Chance on 01-02-2025 Protein [Mass/Vol] 6.6 g/dL 5.9-8.4 [facility] [place] [facility] White blood cell (WBC) count Ordered By: Alis Chance on 01-02-2025 WBC (Bld) [#/Vol] 6.3 10*3/uL 4.4-11.0 [facility] [place] [facility] Absolute lymphocyte countOrd ered By: Alis Chance on 12-12-2024 Lymphocytes Auto (Unsp spec) [#/Vol] 1.54 10*3/uL 0.83-4.51 [facility] Absolute neutrophil countOrd ered By: Alis Chance on 12-12-2024 Neutrophils (Bld) [#/Vol] 3.1 10*3/uL 2.0-7.7 [facility] Anion gap in Serum or Plasma Ordered By: Alis Chance on 12-12-2024 Anion gap [Moles/Vol] 13 mmol/L 5-15 [facility] Automated lymphocyte count a s percentage of total leukocytesOrdered By: Alis Chance on 12-12-2024 Lymphocytes/100 WBC Auto (Unsp spec) 28.5 % 19-41 [facility] BUN/creatinine ratioOrdered By: Mauricejeri Chance on 12-12-2024 Urea nitrogen/Creatinine [Mass ratio] 5.6 mg/mg Low 10-20 [facility] Basophil percentageOrdered B y: Alis Robson on 12-12-2024 Basophils/100 WBC (Bld) 0.6 % 0-[address] [facility] Bilirubin, totalOrdered By: Alis Robson on 12-12-2024 Bilirubin [Mass/Vol] 0.20 mg/dL 0.00-1.30 [facility] Blood polychromasia detectio n by light microscopyOrdered By: [facility] on 12-12-2024 Polychromasia LM Ql (Bld) 1+ [facility] CBC W/Diff, Automatedon 11-17 POLYCHROMASIA 1+ Normal [facility] Comment on above: Performed By: #### L 500.4050, L100.0100 ####[facility] [address] [place], [address] Anisocytosis Ql (Bld) 2+ Normal [facility] Comment on above: Performed By: #### L 500.4050, L100.0100 ####[facility] [address] [place], [address] PLT EST A Normal ADEQ [facility] Comment on above: Performed By: #### L 500.4050, L100.0100 ####[facility] [address] [place], [address] RED CELL MORPH NORM C+C Normal NORM C C [facility] Comment on above: Performed By: #### L 500.4050, L100.0100 ####[facility] [address] [place], [address] Carbon dioxide, total [Moles /volume] in Central venous bloodOrdered By: Alis Chance on 12-12-2024 CO2 [Moles/Vol] 24.6 mmol/L 21.0-32.0 [facility] Chloride assayOrdered By: Gretchen Chance on 12-12-2024 Chloride [Moles/Vol] 102 mmol/L 98-108 [facility] Comprehensive Metabolic Prof ilon 12-12-2024 Albumin [Mass/Vol] 4.1 g/dL Normal 3.4-4.8 [facility] [facility] Comment on above: Performed By: #### L 500.4050, L100.0100 ####[facility] [address] [place], [address] Albumin/Globulin [Mass ratio] 1.7 {ratio} Normal 0.9-2.4 [facility] Comment on above: Performed By: #### L 500.4050, L100.0100 ####[facility] [address] [place], [address] ALK PHOS 78 U/L Normal 35-104 [facility] Comment on above: Performed By: #### L 500.4050, L100.0100 ####[facility] [address] [place], [address] ALT [Catalytic activity/Vol] 15 U/L Normal <=34 [facility] Comment on above: Performed By: #### L 500.4050, L100.0100 ####[facility] [address] [place], [address] AST [Catalytic activity/Vol] 23 U/L Normal <=31 [facility] Comment on above: Performed By: #### L 500.4050, L100.0100 ####[facility] [address] [place], [address] Bilirubin [Mass/Vol] 0.20 mg/dL Normal 0.00-1.30 [facility] Comment on above: Performed By: #### L 500.4050, L100.0100 ####[facility] [address] [place], [address] BUN/CRE 5.6 RATIO Low 10-20 [facility] Comment on above: Performed By: #### L 500.4050, L100.0100 ####[facility] [address] [place], [address] Calcium [Mass/Vol] 9.3 mg/dL Normal 7.6-11.0 [facility] [place] [facility] Comment on above: Performed By: #### L 500.4050, L100.0100 ####[facility] [address] [place], [address] Chloride [Moles/Vol] 102 mmol/L Normal 98-108 [facility] Comment on above: Performed By: #### L 500.4050, L100.0100 ####[facility] [address] [place], [address] CO2 [Moles/Vol] 24.6 mmol/L Normal 21.0-32.0 [facility] Comment on above: Performed By: #### L 500.4050, L100.0100 ####[facility] [address] [place], [address] Creatinine [Mass/Vol] 0.90 mg/dL Normal 0.70-1.20 [facility] Comment on above: Performed By: #### L 500.4050, L100.0100 ####[facility] [address] [place], [address] ECRCL 53.51 ml/min Normal 50-250 [facility] Comment on above: Performed By: #### L 500.4050, L100.0100 ####[facility] [address] [place], [address] GAP 13 Normal 5-15 [facility] Comment on above: Performed By: #### L 500.4050, L100.0100 ####[facility] [address] [place], [address] GFR/1.73 sq M.predicted among non-blacks MDRD (S/P/Bld) [Vol rate/Area] 68 mL/min/{1.73_m2} Normal >60 [facility] Comment on above: Result Comment: mL/m in/1.73m2 CKD-EPI Creatinine Equation (2020) Performed By: #### L 500.4050, L100.0100 ####[facility] [address] [place], [address] Globulin (S) [Mass/Vol] 2.5 g/dL Normal 2.2-4.2 [facility] Comment on above: Performed By: #### L 500.4050, L100.0100 ####[facility] [address] [place], [address] Glucose [Mass/Vol] 115 mg/dL High 70-99 [facility] [place] [facility] Comment on above: Performed By: #### L 500.4050, L100.0100 ####[facility] [address] [place], [address] Potassium [Moles/Vol] 3.5 mmol/L Normal 3.3-5.1 [facility] Comment on above: Performed By: #### L 500.4050, L100.0100 ####[facility] [address] [place], [address] Sodium [Moles/Vol] 139 mmol/L Normal 133-145 [facility] [place] [facility] Comment on above: Performed By: #### L 500.4050, L100.0100 ####[facility] [address] [place], [address] T PROT 6.6 g/dL Normal 5.9-8.4 [facility] Comment on above: Performed By: #### L 500.4050, L100.0100 ####[facility] [address] [place], [address] Urea nitrogen [Mass/Vol] 5 mg/dL Normal 4-19 [facility] Comment on above: Performed By: #### L 500.4050, L100.0100 ####[facility] [address] [place], [place], [address] Eosinophil percentageOrdered By: Alis Chance on 12-12-2024 Eosinophils/100 WBC (Bld) 0.0 % 0-5 [facility] Erythrocyte distribution wid th ratioOrdered By: [facility] on 12-12-2024 Erythrocyte distribution width (RBC) [Ratio] 21.8 % High 11.6-14.6 [facility] Erythrocyte distribution wid th standard deviationOrdered By: [facility] on 12-12-2024 Erythrocyte distribution width (RBC) [Ratio] 66.2 fl High 35.1-43.9 [facility] Erythrocyte morphology asses smentOrdered By: Alis Chance on 12-12-2024 RBC morphology finding Nom (Bld) NORM C+C NORMAL NORM C&C [facility] Glomerular filtration rate ( GFR) estimation/1.73 sq m using serum, plasma, or whole bOrdered By: Alis Chance on 12-12-2024 GFR/1.73 sq M.predicted among non-blacks MDRD (S/P/Bld) [Vol rate/Area] 68 mL/min/{1.73_m2} >60 [facility] Comment on above: mL/min/1.73m2 CKD-EP I Creatinine Equation (2020) Hematocrit Auto (Bld) [Volum e fraction]Ordered By: Alis Chance on 12-12-2024 Hematocrit (Bld) [Volume fraction] 29.5 % Low 37-47 [facility] Hemoglobin measurementOrdere d By: Alis Chance on 12-12-2024 Hemoglobin (Bld) [Mass/Vol] 9.4 g/dL Low 12.0-15.0 [facility] Immature granulocytes/100 WB C Auto (Bld)Ordered By: Alis Chance on 12-12-2024 Immature granulocytes/100 WBC (Bld) 1.100 % High 0.0-0.9 [facility] Comment on above: IG% - Immature Granu locytes (promyelocytes, myelocytes and metamyelocytes) > 1% indicates that a LEFT SHIFT is Present. Laboratory - Chemistry and C hemistry - challengeOrdered By: Alis Chance on 12-12-2024 AST [Catalytic activity/Vol] 23 U/L <32 [facility] Laboratory - Hematology and Cell countsOrdered By: Alis Chance on 12-12-2024 Anisocytosis Ql (Bld) 2+ [facility] MCV (mean corpuscular volume ) determinationOrdered By: Alis Chance on 12-12-2024 MCV (RBC) [Entitic vol] 87.0 fL 81-[address] [facility] Magnesiumon 12-12-2024 Magnesium [Mass/Vol] 1.8 mg/dL Normal 1.5-2.2 [facility] Comment on above: Performed By: #### L 501.5200, L501.2300 ####[facility] [address] [place], [address] Magnesium measurement (mass/ volume)Ordered By: Alis Chance on 12-12-2024 Magnesium (Unsp spec) [Mass/Vol] 1.8 mg/dL 1.5-2.2 [facility] Mean corpuscular hemoglobin (MCH) determinationOrdered By: [facility] on 12-12-2024 MCH (RBC) [Entitic mass] 27.7 pg 27.0-32.0 [facility] Mean corpuscular hemoglobin concentration (MCHC) determinationOrdered By: Alis Chance on 12-12-2024 MCHC (RBC) [Mass/Vol] 31.9 g/dL Low 32-36 [facility] Mean platelet volume determi nationOrdered By: Alis Chance on 12-12-2024 Platelet mean volume (Bld) [Entitic vol] 8.9 fL 6.2-12.0 [facility] Monocyte percentageOrdered B y: Alis Chance on 12-12-2024 Monocytes/100 WBC (Bld) 13.5 % High 0-[address] [facility] Neutrophil percentageOrdered By: Alis Chance on 12-12-2024 Neutrophils/100 WBC (Bld) 56.3 % 47-70 [facility] Nucleated red blood cell per centageOrdered By: Alis Chance on 12-12-2024 Nucleated RBC/100 WBC (Bld) [Ratio] 0 % 0-5 [facility] Oncology Visit Reporton 11-17 Oncology Visit Report Normal [facility] Phosphoruson 12-12-2024 Phosphate [Mass/Vol] 3.8 mg/dL Normal 2.7-4.5 [facility] Comment on above: Performed By: #### L 501.5200, L501.2300 ####[facility] [address] [place], [address] Platelet countOrdered By: Gretchen Chance on 12-12-2024 Platelets (Bld) [#/Vol] 266 10*3/uL 150-450 [facility] Platelet estimateOrdered By: Alis Chance on 12-12-2024 Platelets LM Ql (Bld) A ADEQ [facility] Potassium measurement (mass/ volume)Ordered By: Alis Chance on 12-12-2024 Potassium (Unsp spec) [Mass/Vol] 3.5 mmol/L 3.3-5.1 [facility] RBC Auto (Bld) [#/Vol]Ordere d By: Alis Chance on 12-12-2024 RBC (Bld) [#/Vol] 3.39 10*6/uL Low 4.2-5.4 [facility] Serum creatinine measurement (mass/volume)Ordered By: Alis Chance on 12-12-2024 Creatinine [Mass/Vol] 0.90 mg/dL 0.70-1.20 [facility] Serum globulin measurementOr dered By: Alis Chance on 12-12-2024 Globulin (S) [Mass/Vol] 2.5 g/dL 2.2-4.2 [facility] Serum glucose measurement (m ass/volume)Ordered By: Alis Chance on 12-12-2024 Glucose [Mass/Vol] 115 mg/dL High 70-99 [facility] Serum or plasma alanine vicente otransferase (ALT) measurementOrdered By: Alis Chance on 12-12-2024 ALT [Catalytic activity/Vol] 15 U/L <35 [facility] Serum or plasma albumin usman urement (mass/volume)Ordered By: Alis Chance on 12-12-2024 Albumin [Mass/Vol] 4.1 g/dL 3.4-4.8 [facility] [place] [facility] Serum or plasma albumin/glob ulin mass ratioOrdered By: Alis Chance on 12-12-2024 Albumin/Globulin [Mass ratio] 1.7 {ratio} 0.9-2.4 [facility] Serum or plasma alkaline marcela sphatase measurementOrdered By: Alis Chance on 12-12-2024 ALP [Catalytic activity/Vol] 78 U/L 35-104 [facility] Serum or plasma calcium usman urement (mass/volume)Ordered By: Alis Chance on 12-12-2024 Calcium [Mass/Vol] 9.3 mg/dL 7.6-11.0 [facility] [place] [facility] Serum or plasma urea nitroge n measurement (mass/volume)Ordered By: Alis Chance on 12-12-2024 Urea nitrogen [Mass/Vol] 5 mg/dL 4-19 [facility] Sodium levelOrdered By: Maurice Chance on 12-12-2024 Sodium [Moles/Vol] 139 mmol/L 133-145 [facility] [place] [facility] Total proteinOrdered By: Rob Chance on 12-12-2024 Protein [Mass/Vol] 6.6 g/dL 5.9-8.4 [facility] [place] [facility] White blood cell (WBC) count Ordered By: Alis Chance on 12-12-2024 WBC (Bld) [#/Vol] 5.4 10*3/uL 4.4-11.0 [facility] [place] [facility] XR FINGER THUMB 3 VIEWS LEFT [...] 11/24/2024 3:30:21 PM Ordering Provider: WILBUR AGRAWAL [facility] CBC W/Diff, Automatedon 05-0 Absolute Lymph 1.29 X10 3/uL Normal 0.83-4.51 [facility] Comment on above: Performed By: #### L 100.0100, L500.4050 ####[facility] [address] [place], [address] Absolute Neut 2.5 X10 3/uL Normal 2.0-7.7 [facility] Comment on above: Performed By: #### L 100.0100, L500.4050 ####[facility] [address] [place], [address] Basophils/100 WBC (Bld) 0.7 % Normal 0-[address] [facility] Comment on above: Performed By: #### L 100.0100, L500.4050 ####[facility] [address] [place], [address] Eosinophils/100 WBC (Bld) 0.0 % Normal 0-5 [facility] Comment on above: Performed By: #### L 100.0100, L500.4050 ####[facility] [address] [place], [address] Erythrocyte distribution width (RBC) [Ratio] 18.5 % High 11.6-14.6 [facility] Comment on above: Performed By: #### L 100.0100, L500.4050 ####[facility] [address] [place], [address] Hematocrit (Bld) [Volume fraction] 31.1 % Low 37-47 [facility] Comment on above: Performed By: #### L 100.0100, L500.4050 ####[facility] [address] [place], [address] Hemoglobin (Bld) [Mass/Vol] 9.8 g/dL Low 12.0-15.0 [facility] Comment on above: Performed By: #### L 100.0100, L500.4050 ####[facility] [address] [place], [address] IG% 0.900 Normal 0.0-0.9 [facility] Comment on above: Result Comment: IG% - Immature Granulocytes (promyelocytes, myelocytes andmetamyelocytes) > 1% indicates that a LEFT SHIFT is Present. Performed By: #### L 100.0100, L500.4050 ####[facility] [address] [place], [address] Lymphocytes/100 WBC (Bld) 28.9 % Normal 19-41 [facility] Comment on above: Performed By: #### L 100.0100, L500.4050 ####[facility] [address] [place], [address] MCH (RBC) [Entitic mass] 26.5 pg Low 27.0-32.0 [facility] Comment on above: Performed By: #### L 100.0100, L500.4050 ####[facility] [address] [place], [address] MCHC (RBC) [Mass/Vol] 31.5 g/dL Low 32-36 [facility] Comment on above: Performed By: #### L 100.0100, L500.4050 ####[facility] [address] [place], [address] MCV (RBC) [Entitic vol] 84.1 fL Normal 81-[address] [facility] Comment on above: Performed By: #### L 100.0100, L500.4050 ####[facility] [address] [place], [address] Monocytes/100 WBC (Bld) 14.8 % High 0-[address] [facility] Comment on above: Performed By: #### L 100.0100, L500.4050 ####[facility] [address] [place], [address] Neutrophils/100 WBC (Bld) 54.7 % Normal 47-70 [facility] Comment on above: Performed By: #### L 100.0100, L500.4050 ####[facility] [address] [place], [address] Nucleated RBC (Bld) [#/Vol] 0 10*3/uL Normal 0-5 [facility] Comment on above: Performed By: #### L 100.0100, L500.4050 ####[facility] [address] [place], [address] Platelet mean volume (Bld) [Entitic vol] 8.6 fL Normal 6.2-12.0 [facility] Comment on above: Performed By: #### L 100.0100, L500.4050 ####[facility] [address] [place], [address] Platelets (Bld) [#/Vol] 322 10*3/uL Normal 150-450 [facility] Comment on above: Performed By: #### L 100.0100, L500.4050 ####[facility] [address] [place], [address] RBC (Bld) [#/Vol] 3.70 10*6/uL Low 4.2-5.4 [facility] Comment on above: Performed By: #### L 100.0100, L500.4050 ####[facility] [address] [place], [address] RDW SD 49.6 fl High 35.1-43.9 [facility] Comment on above: Performed By: #### L 100.0100, L500.4050 ####[facility] [address] [place], [address] WBC (Bld) [#/Vol] 4.5 10*3/uL Normal 4.4-11.0 [facility] [place] [facility] Comment on above: Performed By: #### L 100.0100, L500.4050 ####[facility] [address] [place], [address] Comprehensive Metabolic Prof [facility] 11-21-2024 Albumin [Mass/Vol] 4.0 g/dL Normal 3.4-4.8 [facility] [place] [facility] Comment on above: Performed By: #### L 100.0100, L500.4050 ####[facility] [address] [place], [address] Albumin/Globulin [Mass ratio] 1.5 {ratio} Normal 0.9-2.4 [facility] Comment on above: Performed By: #### L 100.0100, L500.4050 ####[facility] [address] [place], [address] ALK PHOS 70 U/L Normal 35-104 [facility] Comment on above: Performed By: #### L 100.0100, L500.4050 ####[facility] [address] [place], [address] ALT [Catalytic activity/Vol] 15 U/L Normal <=34 [facility] Comment on above: Performed By: #### L 100.0100, L500.4050 ####[facility] [address] [place], [address] AST [Catalytic activity/Vol] 23 U/L Normal <=31 [facility] Comment on above: Performed By: #### L 100.0100, L500.4050 ####[facility] [address] [place], [address] Bilirubin [Mass/Vol] 0.20 mg/dL Normal 0.00-1.30 [facility] Comment on above: Performed By: #### L 100.0100, L500.4050 ####[facility] [address] [place], [address] BUN/CRE 10.1 RATIO Normal 10-20 [facility] Comment on above: Performed By: #### L 100.0100, L500.4050 ####[facility] [address] [place], [address] Calcium [Mass/Vol] 9.5 mg/dL Normal 7.6-11.0 [facility] [place] [facility] Comment on above: Performed By: #### L 100.0100, L500.4050 ####[facility] [address] [place], [address] Chloride [Moles/Vol] 102 mmol/L Normal 98-108 [facility] Comment on above: Performed By: #### L 100.0100, L500.4050 ####[facility] [address] [place], [address] CO2 [Moles/Vol] 25.9 mmol/L Normal 21.0-32.0 [facility] Comment on above: Performed By: #### L 100.0100, L500.4050 ####[facility] [address] [place], [address] Creatinine [Mass/Vol] 0.85 mg/dL Normal 0.70-1.20 [facility] Comment on above: Performed By: #### L 100.0100, L500.4050 ####[facility] [address] [place], [address] ECRCL 57.11 ml/min Normal 50-250 [facility] Comment on above: Performed By: #### L 100.0100, L500.4050 ####[facility] [address] [place], [address] GAP 12 Normal 5-15 [facility] Comment on above: Performed By: #### L 100.0100, L500.4050 ####[facility] [address] [place], [address] GFR/1.73 sq M.predicted among non-blacks MDRD (S/P/Bld) [Vol rate/Area] 73 mL/min/{1.73_m2} Normal >60 [facility] Comment on above: Result Comment: mL/m in/1.73m2 CKD-EPI Creatinine Equation (2020) Performed By: #### L 100.0100, L500.4050 ####[facility] [address] [place], [address] Globulin (S) [Mass/Vol] 2.6 g/dL Normal 2.2-4.2 [facility] Comment on above: Performed By: #### L 100.0100, L500.4050 ####[facility] [address] [place], [address] Glucose [Mass/Vol] 101 mg/dL High 70-99 [facility] [place] [facility] Comment on above: Performed By: #### L 100.0100, L500.4050 ####[facility] [address] [place], [address] Potassium [Moles/Vol] 3.7 mmol/L Normal 3.3-5.1 [facility] Comment on above: Performed By: #### L 100.0100, L500.4050 ####[facility] [address] [place], [address] Sodium [Moles/Vol] 140 mmol/L Normal 133-145 [facility] [place] [facility] Comment on above: Performed By: #### L 100.0100, L500.4050 ####[facility] [address] [place], [address] T PROT 6.6 g/dL Normal 5.9-8.4 [facility] Comment on above: Performed By: #### L 100.0100, L500.4050 ####[facility] [address] [place], [address] Urea nitrogen [Mass/Vol] 9 mg/dL Normal 4-19 [facility] Comment on above: Performed By: #### L 100.0100, L500.4050 ####[facility] [address] [place], [address] Oncology Visit Reporton Oncology Visit Report Normal [facility] Cardiology Visit Reporton Cardiology Visit Report Normal [facility] CXR for Line Placementon CXR for Line Placement Normal [facility] Discharge Instructionon Discharge Instruction Normal [facility] MR/POSTOP.ANEon 11-16-2024 MR/POSTOP.ANE Normal [facility] MR/MRVWRIBY3wo 11-16-2024 MR/POSTOPAN2 Normal [facility] Operative Reporton Operative Report Normal [facility] CBC W/Diff, Automatedon 10-18 PATH REV Reviewed Normal [facility] Comment on above: Result Comment: LEUK OPENIA WITH ABSOLUTE NEUTROPENIA AND LYMPHOPENIA.NORMOCYTIC HYPOCHROMIC ANEMIA WITH MILD ANISOCYTOSIS.ADEQUATE PLATELETS.Sydnee Valencia MD 11/10/2024 AMENDED REPORT 11/10/24 1131 PATH REV previously reported as: November dori Performed By: #### L 100.0100, L503.4750 ####[facility] [address] [place], [address] Blood band neutrophil count as percentage of total leukocytesOrdered By: Anayeli Audelia on 11-09-2024 Band form neutrophils/100 WBC (Bld) 7 % High 0-5 [facility] Blood basophils/100 leukocyt esOrdered By: Anayeli Audelia on 11-09-2024 Basophils/100 WBC (Bld) 2 % High 0-[address] [facility] Blood lymphocytes/100 leukoc ytesOrdered By: Anayeli Audelia on 11-09-2024 Lymphocytes/100 WBC (Bld) 34 % 19-41 [facility] Blood monocytes/100 leukocyt esOrdered By: Anayeli Audelia on 11-09-2024 Monocytes/100 WBC (Bld) 11 % High 0-[address] [facility] Blood segmented neutrophils/ 100 leukocytesOrdered By: Anayeli Audelia on 11-09-2024 Segmented neutrophils/100 WBC (Bld) 46 % Low 47-70 [facility] Comprehensive Metabolic Prof ilon 11-09-2024 Albumin [Mass/Vol] 3.8 g/dL Normal 3.4-4.8 [facility] [place] [facility] Comment on above: Performed By: #### L 503.0106, L500.4050, L503.6030 ####[facility] [address] [place], [address] Albumin/Globulin [Mass ratio] 1.4 {ratio} Normal 0.9-2.4 [facility] Comment on above: Performed By: #### L 503.0106, L500.4050, L503.6030 ####[facility] [address] [place], [address] ALK PHOS 82 U/L Normal 35-104 [facility] Comment on above: Performed By: #### L 503.0106, L500.4050, L503.6030 ####[facility] [address] [place], [address] ALT [Catalytic activity/Vol] 19 U/L Normal <=34 [facility] Comment on above: Performed By: #### L 503.0106, L500.4050, L503.6030 ####[facility] [address] [place], [address] AST [Catalytic activity/Vol] 17 U/L Normal <=31 [facility] Comment on above: Performed By: #### L 503.0106, L500.4050, L503.6030 ####[facility] [address] [place], [address] Bilirubin [Mass/Vol] 0.17 mg/dL Normal 0.00-1.30 [facility] Comment on above: Performed By: #### L 503.0106, L500.4050, L503.6030 ####[facility] [address] [place], [address] BUN/CRE 10.6 RATIO Normal 10-20 [facility] Comment on above: Performed By: #### L 503.0106, L500.4050, L503.6030 ####[facility] [address] [place], [address] Calcium [Mass/Vol] 9.3 mg/dL Normal 7.6-11.0 [facility] [place] [facility] Comment on above: Performed By: #### L 503.0106, L500.4050, L503.6030 ####[facility] [address] [place], [address] Chloride [Moles/Vol] 101 mmol/L Normal 98-108 [facility] Comment on above: Performed By: #### L 503.0106, L500.4050, L503.6030 ####[facility] [address] [place], [address] CO2 [Moles/Vol] 27.5 mmol/L Normal 21.0-32.0 [facility] Comment on above: Performed By: #### L 503.0106, L500.4050, L503.6030 ####[facility] [address] [place], [address] Creatinine [Mass/Vol] 0.75 mg/dL Normal 0.70-1.20 [facility] Comment on above: Performed By: #### L 503.0106, L500.4050, L503.6030 ####[facility] [address] [place], [address] ECRCL 62.94 ml/min Normal 50-250 [facility] Comment on above: Performed By: #### L 503.0106, L500.4050, L503.6030 ####[facility] [address] [place], [address] GAP 13 Normal 5-15 [facility] Comment on above: Performed By: #### L 503.0106, L500.4050, L503.6030 ####[facility] [address] [place], [address] GFR/1.73 sq M.predicted among non-blacks MDRD (S/P/Bld) [Vol rate/Area] 85 mL/min/{1.73_m2} Normal >60 [facility] Comment on above: Result Comment: mL/m in/1.73m2 CKD-EPI Creatinine Equation (2020) Performed By: #### L 503.0106, L500.4050, L503.6030 ####[facility] [address] [place], [address] Globulin (S) [Mass/Vol] 2.7 g/dL Normal 2.2-4.2 [facility] Comment on above: Performed By: #### L 503.0106, L500.4050, L503.6030 ####[facility] [address] [place], [address] Glucose [Mass/Vol] 110 mg/dL High 70-99 [facility] [place] [facility] Comment on above: Performed By: #### L 503.0106, L500.4050, L503.6030 ####[facility] [address] [place], [address] Potassium [Moles/Vol] 3.1 mmol/L Low 3.3-5.1 [facility] Comment on above: Performed By: #### L 503.0106, L500.4050, L503.6030 ####[facility] [address] [place], [address] Sodium [Moles/Vol] 141 mmol/L Normal 133-145 [facility] [place] [facility] Comment on above: Performed By: #### L 503.0106, L500.4050, L503.6030 ####[facility] [address] [place], [address] T PROT 6.5 g/dL Normal 5.9-8.4 [facility] Comment on above: Performed By: #### L 503.0106, L500.4050, L503.6030 ####[facility] [address] [place], [address] Urea nitrogen [Mass/Vol] 8 mg/dL Normal 4-19 [facility] Comment on above: Performed By: #### L 503.0106, L500.4050, L503.6030 ####[facility] [address] [place], [address] Ferritinon 11-09-2024 Ferritin [Mass/Vol] 243 ng/mL Normal 22-378 [facility] Comment on above: Performed By: #### L 100.0100, L503.6550 ####[facility] [address] [place], [address] Iron measurement (mass/mass) Ordered By: Anayeli Win on 04-24-2025 Iron (Unsp spec) [Mass/Mass] 88 ug/dL 50-170 [facility] Iron+Iron Binding Capacityon 11-09-2024 Iron [Mass/Vol] 88 ug/dL Normal 50-170 [facility] Comment on above: Performed By: #### L 503.0106, L500.4050, L503.6030 ####[facility] [address] [place], [address] IRON SATURATION 31.0 Normal 13-59 [facility] Comment on above: Performed By: #### L 503.0106, L500.4050, L503.6030 ####[facility] [address] [facility] [address] TIBC 281 ug/dL Normal 250-450 [facility] Comment on above: Performed By: #### L 503.0106, L500.4050, L503.6030 ####[facility] [address] [place], [address] UIBC 193 ug/dL Low 228-428 [facility] Comment on above: Performed By: #### L 503.0106, L500.4050, L503.6030 ####[facility] [address] [place], [address] No Panel InformationOrdered By: Anayeli Win on 11-09-2024 Unsaturated Iron Binding Capacity 193 ug/dL Low 228-428 [facility] Oncology Visit Reporton 10-18 Oncology Visit Report Normal [facility] Review by pathologistOrdered By: Anayeli Win on 11-09-2024 Pathologist review Luiz (Unsp spec) [Interp] Reviewed [facility] Comment on above: Previous reported re sult: Kathrin meadows Edited by: ADAL on 11/10/24:1131LEUKOPENIA WITH ABSOLUTE NEUTROPENIA AND LYMPHOPENIA.NORMOCYTIC HYPOCHROMIC ANEMIA WITH MILD ANISOCYTOSIS.ADEQUATE PLATELETS.Sydnee Valencia MD 11/10/2024 AMENDED REPORT 11/10/24 1131 PATH REV previously reported as: May foll Serum or plasma ferritin fdiel surement (mass/volume)Ordered By: Anaylei Win on 11-09-2024 Ferritin [Mass/Vol] 243 ng/mL 22-378 [facility] Serum or plasma iron saturat ion measurement (mass fraction)Ordered By: Anayeli Win on 11-09-2024 Iron saturation [Mass fraction] 31.0 % 13-59 [facility] Total cell countOrdered By: Anayeli Audelia on 11-09-2024 Cells counted [employer] (Bld/Tiss) [#] 100 MANUAL DIFF [facility] Vitamin B12on 11-09-2024 Cobalamin (Vitamin B12) [Mass/Vol] 2391 pg/mL High 180-914 [facility] Comment on above: Performed By: #### L 503.0106, L500.4050, L503.6030 ####[facility] [address] 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 She had [...] daughter would like to establish with a executive director in [place]. Patient is monitoring her BP at home, and will call her daughter, ( who is at work now) if BP drops. She will contactthe marketing research coordinator to see if she can arrange Cardiology to see her tomorrow while at the infusion center. She will keep us updated. Normal [facility] 36 Daughter called back she spoke to oncologist and oncologist is more comfortable if we deal with this. Normal [facility] 36 I spoke with daughter pt having increase BOWMAN/ up 7 #s/b/l lower extremity edema after having 2 chemo treatments. Daughter states chemo staff said to call executive director. She is not sure if oncologist or his office is aware. I asked her to check with them first regarding the symptoms she is having. The care will be directed by them. She will call back after she makes sure the oncologist is aware. Normal [facility] 36 Daughter calling pt is new to chemo having second treatment today. She has gained 7# since yesterday. Chemo staff wanted pt to call executive director pt has edema in ankles. Normal [facility] CBC W/Diff, Automatedon 04-07 23-2024 Absolute Lymph 1.00 X10 3/uL Normal 0.83-4.51 [facility] Comment on above: Performed By: #### L 500.4050, L100.0100 ####[facility] [address] [place], [address] Absolute Neut 2.9 X10 3/uL Normal 2.0-7.7 [facility] Comment on above: Performed By: #### L 500.4050, L100.0100 ####[facility] [address] [place], [address] Basophils/100 WBC (Bld) 0.5 % Normal 0-[address] [facility] Comment on above: Performed By: #### L 500.4050, L100.0100 ####[facility] [address] [place], [address] Eosinophils/100 WBC (Bld) 0.7 % Normal 0-5 [facility] Comment on above: Performed By: #### L 500.4050, L100.0100 ####[facility] [address] [place], [address] Erythrocyte distribution width (RBC) [Ratio] 16.6 % High 11.6-14.6 [facility] Comment on above: Performed By: #### L 500.4050, L100.0100 ####[facility] [address] [place], [address] Hematocrit (Bld) [Volume fraction] 32.5 % Low 37-47 [facility] Comment on above: Performed By: #### L 500.4050, L100.0100 ####[facility] [address] [place], [address] Hemoglobin (Bld) [Mass/Vol] 10.2 g/dL Low 12.0-15.0 [facility] Comment on above: Performed By: #### L 500.4050, L100.0100 ####[facility] [address] [place], [address] IG% 0.200 Normal 0.0-0.9 [facility] Comment on above: Result Comment: IG% - Immature Granulocytes (promyelocytes, myelocytes andmetamyelocytes) > 1% indicates that a LEFT SHIFT is Present. Performed By: #### L 500.4050, L100.0100 ####[facility] [address] [place], [address] Lymphocytes/100 WBC (Bld) 22.6 % Normal 19-41 [facility] Comment on above: Performed By: #### L 500.4050, L100.0100 ####[facility] [address] [place], [address] MCH (RBC) [Entitic mass] 26.4 pg Low 27.0-32.0 [facility] Comment on above: Performed By: #### L 500.4050, L100.0100 ####[facility] [address] [place], [address] MCHC (RBC) [Mass/Vol] 31.4 g/dL Low 32-36 [facility] Comment on above: Performed By: #### L 500.4050, L100.0100 ####[facility] [address] [place], [address] MCV (RBC) [Entitic vol] 84.0 fL Normal 81-[address] [facility] Comment on above: Performed By: #### L 500.4050, L100.0100 ####[facility] [address] [place], [address] Monocytes/100 WBC (Bld) 11.7 % High 0-[address] [facility] Comment on above: Performed By: #### L 500.4050, L100.0100 ####[facility] [address] [place], [address] Neutrophils/100 WBC (Bld) 64.3 % Normal 47-70 [facility] Comment on above: Performed By: #### L 500.4050, L100.0100 ####[facility] [address] [place], [address] Nucleated RBC (Bld) [#/Vol] 0 10*3/uL Normal 0-5 [facility] Comment on above: Performed By: #### L 500.4050, L100.0100 ####[facility] [address] [place], [address] Platelet mean volume (Bld) [Entitic vol] 8.5 fL Normal 6.2-12.0 [facility] Comment on above: Performed By: #### L 500.4050, L100.0100 ####[facility] [facility] [address] [place], [address] Platelets (Bld) [#/Vol] 284 10*3/uL Normal 150-450 [facility] Comment on above: Performed By: #### L 500.4050, L100.0100 ####[facility] [address] [place], [address] RBC (Bld) [#/Vol] 3.87 10*6/uL Low 4.2-5.4 [facility] Comment on above: Performed By: #### L 500.4050, L100.0100 ####[facility] [address] [place], [address] RDW SD 50.7 fl High 35.1-43.9 [facility] Comment on above: Performed By: #### L 500.4050, L100.0100 ####[facility] [address] [place], [address] WBC (Bld) [#/Vol] 4.4 10*3/uL Normal 4.4-11.0 [facility] [place] [facility] Comment on above: Performed By: #### L 500.4050, L100.0100 ####[facility] [address] [place], [address] Absolute Neut Normal 2.0-7.7 [facility] Comment on above: Result Comment: @DUP LICATE ORDER Performed By: #### L 500.4050, L100.0100 ####[facility] [address] [place], [address] HCT Normal 37-47 [facility] Comment on above: Result Comment: @DUP LICATE ORDER Performed By: #### L 500.4050, L100.0100 ####[facility] [address] [place], [address] HGB Normal 12.0-15.0 [facility] Comment on above: Result Comment: @DUP LICATE ORDER Performed By: #### L 500.4050, L100.0100 ####[facility] [address] [place], [address] MCH Normal 27.0-32.0 [facility] Comment on above: Result Comment: @DUP LICATE ORDER Performed By: #### L 500.4050, L100.0100 ####[facility] [address] [place], [address] MCHC Normal 32-36 [facility] Comment on above: Result Comment: @DUP LICATE ORDER Performed By: #### L 500.4050, L100.0100 ####[facility] [address] [place], [address] MCV Normal 81-99 [facility] Comment on above: Result Comment: @DUP LICATE ORDER Performed By: #### L 500.4050, L100.0100 ####[facility] [address] [place], [address] NEUT% Normal 47-70 [facility] Comment on above: Result Comment: @DUP LICATE ORDER Performed By: #### L 500.4050, L100.0100 ####[facility] [address] [place], [address] PLT Normal 150-450 [facility] Comment on above: Result Comment: @DUP LICATE ORDER Performed By: #### L 500.4050, L100.0100 ####[facility] [address] [place], [address] RBC Normal 4.2-5.4 [facility] Comment on above: Result Comment: @DUP LICATE ORDER Performed By: #### L 500.4050, L100.0100 ####[facility] [address] [place], [address] RDW CV Normal 11.6-14.6 [facility] Comment on above: Result Comment: @DUP LICATE ORDER Performed By: #### L 500.4050, L100.0100 ####[facility] [address] [place], [address] RDW SD Normal 35.1-43.9 [facility] Comment on above: Result Comment: @DUP LICATE ORDER Performed By: #### L 500.4050, L100.0100 ####[facility] [address] [place], [address] WBC Normal 4.4-11.0 [facility] Comment on above: Result Comment: @DUP LICATE ORDER Performed By: #### L 500.4050, L100.0100 ####[facility] [address] [place], [address] Comprehensive Metabolic Prof ilon 10-31-2024 Albumin [Mass/Vol] 3.6 g/dL Normal 3.4-4.8 [facility] [place] [facility] Comment on above: Performed By: #### L 500.4050, L100.0100 ####[facility] [address] [place], [address] Albumin/Globulin [Mass ratio] 1.3 {ratio} Normal 0.9-2.4 [facility] Comment on above: Performed By: #### L 500.4050, L100.0100 ####[facility] [address] [place], [address] ALK PHOS 63 U/L Normal 35-104 [facility] Comment on above: Performed By: #### L 500.4050, L100.0100 ####[facility] [address] [place], [address] ALT [Catalytic activity/Vol] 11 U/L Normal <=34 [facility] Comment on above: Performed By: #### L 500.4050, L100.0100 ####[facility] [address] [place], [address] AST [Catalytic activity/Vol] 17 U/L Normal <=31 [facility] Comment on above: Performed By: #### L 500.4050, L100.0100 ####[facility] [address] [place], [address] Bilirubin [Mass/Vol] 0.17 mg/dL Normal 0.00-1.30 [facility] Comment on above: Performed By: #### L 500.4050, L100.0100 ####[facility] [address] [place], [address] BUN/CRE 19.1 RATIO Normal 10-20 [facility] Comment on above: Performed By: #### L 500.4050, L100.0100 ####[facility] [address] [place], [address] Calcium [Mass/Vol] 9.2 mg/dL Normal 7.6-11.0 [facility] [place] [facility] Comment on above: Performed By: #### L 500.4050, L100.0100 ####[facility] [address] [place], [address] Chloride [Moles/Vol] 107 mmol/L Normal 98-108 [facility] Comment on above: Performed By: #### L 500.4050, L100.0100 ####[facility] [address] [place], [address] CO2 [Moles/Vol] 26.3 mmol/L Normal 21.0-32.0 [facility] Comment on above: Performed By: #### L 500.4050, L100.0100 ####[facility] [address] [place], [address] Creatinine [Mass/Vol] 0.71 mg/dL Normal 0.70-1.20 [facility] Comment on above: Performed By: #### L 500.4050, L100.0100 ####[facility] [address] [place], [address] ECRCL 61.80 ml/min Normal 50-250 [facility] Comment on above: Performed By: #### L 500.4050, L100.0100 ####[facility] [address] [place], [address] GAP 11 Normal 5-15 [facility] Comment on above: Performed By: #### L 500.4050, L100.0100 ####[facility] [address] [place], [address] GFR/1.73 sq M.predicted among non-blacks MDRD (S/P/Bld) [Vol rate/Area] 91 mL/min/{1.73_m2} Normal >60 [facility] Comment on above: Result Comment: mL/m in/1.73m2 CKD-EPI Creatinine Equation (2020) Performed By: #### L 500.4050, L100.0100 ####[facility] [address] [place], [address] Globulin (S) [Mass/Vol] 2.9 g/dL Normal 2.2-4.2 [facility] Comment on above: Performed By: #### L 500.4050, L100.0100 ####[facility] [address] [place], [address] Glucose [Mass/Vol] 106 mg/dL High 70-99 [facility] [place] [facility] Comment on above: Performed By: #### L 500.4050, L100.0100 ####[facility] [address] [place], [address] Potassium [Moles/Vol] 3.7 mmol/L Normal 3.3-5.1 [facility] Comment on above: Performed By: #### L 500.4050, L100.0100 ####[facility] [address] [place], [address] Sodium [Moles/Vol] 144 mmol/L Normal 133-145 [facility] [place] [facility] Comment on above: Performed By: #### L 500.4050, L100.0100 ####[facility] [address] [place], [address] T PROT 6.5 g/dL Normal 5.9-8.4 [facility] Comment on above: Performed By: #### L 500.4050, L100.0100 ####[facility] [address] [place], [address] Urea nitrogen [Mass/Vol] 14 mg/dL Normal 4-19 [facility] Comment on above: Performed By: #### L 500.4050, L100.0100 ####[facility] [address] [place], [address] ALB Normal 3.4-4.8 [facility] Comment on above: Result Comment: @DUP LICATE ORDER Performed By: #### L 500.4050, L100.0100 ####[facility] [address] [place], [address] ALK PHOS Normal 35-104 [facility] Comment on above: Result Comment: @DUP LICATE ORDER Performed By: #### L 500.4050, L100.0100 ####[facility] [address] [place], [address] ALT Normal <=34 [facility] Comment on above: Result Comment: @DUP LICATE ORDER Performed By: #### L 500.4050, L100.0100 ####[facility] [address] [place], [address] AST Normal <=31 [facility] Comment on above: Result Comment: @DUP LICATE ORDER Performed By: #### L 500.4050, L100.0100 ####[facility] [address] [place], [address] BUN Normal 4-19 [facility] Comment on above: Result Comment: @DUP LICATE ORDER Performed By: #### L 500.4050, L100.0100 ####[facility] [address] [place], [address] BUN/CRE Normal 10-20 [facility] Comment on above: Result Comment: @DUP LICATE ORDER Performed By: #### L 500.4050, L100.0100 ####[facility] [address] [place], [address] Calcium Normal 7.6-11.0 [facility] Comment on above: Result Comment: @DUP LICATE ORDER Performed By: #### L 500.4050, L100.0100 ####[facility] [address] [place], [address] CL Normal 98-108 [facility] Comment on above: Result Comment: @DUP LICATE ORDER Performed By: #### L 500.4050, L100.0100 ####[facility] [address] [place], [address] CO2 Normal 21.0-32.0 [facility] Comment on above: Result Comment: @DUP LICATE ORDER Performed By: #### L 500.4050, L100.0100 ####[facility] [address] [place], [address] CREAT,SERUM Normal 0.70-1.20 [facility] Comment on above: Result Comment: @DUP LICATE ORDER Performed By: #### L 500.4050, L100.0100 ####[facility] [address] [place], [address] eGFR Normal >60 [facility] Comment on above: Result Comment: @DUP LICATE ORDER Performed By: #### L 500.4050, L100.0100 ####[facility] [address] [place], [address] GAP Normal 5-15 [facility] Comment on above: Result Comment: @DUP LICATE ORDER Performed By: #### L 500.4050, L100.0100 ####[facility] [address] [place], [address] GLU Normal 70-99 [facility] Comment on above: Result Comment: @DUP LICATE ORDER Performed By: #### L 500.4050, L100.0100 ####[facility] [address] [place], [address] Potassium Normal 3.3-5.1 [facility] Comment on above: Result Comment: @DUP LICATE ORDER Performed By: #### L 500.4050, L100.0100 ####[facility] [address] [place], [address] T BILI Normal 0.00-1.30 [facility] Comment on above: Result Comment: @DUP LICATE ORDER Performed By: #### L 500.4050, L100.0100 ####[facility] [address] [place], [address] T PROT Normal 5.9-8.4 [facility] Comment on above: Result Comment: @DUP LICATE ORDER Performed By: #### L 500.4050, L100.0100 ####[facility] [address] [place], [address] Comprehensive Metabolic Profil Normal 133-145 [facility] Comment on above: Result Comment: @DUP LICATE ORDER Performed By: #### L 500.4050, L100.0100 ####[facility] [address] [place], [address] Oncology Visit Reporton 10-17 Oncology Visit Report Normal [facility] 36on 10-27-2024 36 Reviewed clinisync and confirmed that patient ws able to establish with [place] [facility] on 10/26/24. Beginning treatment 10/31/24. Normal [facility] Surgery Visit Reporton 10-27 Surgery Visit Report Normal [facility] 36on 10-26-2024 36 Pt's Daughter, Diaz requesting POC device for he Mother. Explains her Mother has multiple Dr's appointments. Just today, her mother used 3 tanks. While working on TE, had contacted Pt's Daughter for more information , Diaz explained, She just talked to [employer] and decided to stick with tanks. Normal [facility] Office Visiton 10-26-2024 Follow-up visit [id number] Karina Fernando 1950 F Date Provider Department Center 10/26/2024 JOSELYN [facility] None Family History Problem Relation Age of Onset Cancer Mother Cancer Father No Known Problems Sister No Known Problems Brother Heart disease Brother Family Status - Relation Status Age at Mother Father Sister Alive Brother Alive Brother Alive Level of Service:[address] [place] OFFICE/[facility]PATIENT [facility] MINUTES Reason for Visit and Comments: New Patient [542] Thyroid Problem [110] - Thyroid nodule Normal [facility] Oncology Visit Reporton 10-17 Oncology Visit Report Normal [facility] Progress Noteon 10-26-2024 Progress Note . ENDOCRINOLOGY [address] [place] [address] Dept: [phone] Dept Visit type: New patient Reason for [...] capsule by mouth daily., Disp: , Rfl: Currie-3 Fatty Acids (OMEGA 3 500 PO), Take [...] Cancer Mother (more content not included)... Normal [facility] Oncology Visit Reporton Oncology Visit Report [facility] 36on 10-24-2024 36 Case reviewed - advanced small cell lung cancer *The patient's OARRS report was obtained and reviewed.* [facility] [address] Fortune, pt needs a prescription sent for percocet 5/325mg, 1 tab Q6 hours PRN. [facility] 36 Received call from Alee, [employer] Officer at [facility]. Per Alee, they are aware patient now has oncology appt in [place], but they are tryoing to have her seen at [place] sooner. Right faxed MRI brain and PET reports to providers at [place] in case she returns to them for oncology care. Also requested images be pushed to provider. Normal [facility] Progress Noteon 10-24-2024 Progress Note OARRS reviewed Normal [facility] Progress Note [facility] CARDIOVASCULAR [facility] THORACIC SURGERY [address] [facility] [address] Dept: [phone] Dept Loc: [phone] Patient was identified and seen today via [...] stated that they are currently in the [facility]. If the patient is a minor, [...] etiology. Per note, pt had presented to [place] ED in August 2023 for dyspnea. CTA [...] consistent with malignancy. Patient was hospitalized at [facility] on 10/05/24 for shortness of breath, then transferred to [facility] for ongoing care. An US guided thoracentesis [...] follow with her oncologist Dr. Chance in [place]. MRI brain on 10/17/24 was normal. PET [...] increased FD (more content not included)... Normal [facility] 12 Lead EKGon 10-21-2024 12 Lead EKG Normal [facility] Absolute lymphocyte countOrd ered By: Tay Dumont on 10-21-2024 Lymphocytes Auto (Unsp spec) [#/Vol] 0.90 10*3/uL 0.83-4.51 [facility] Absolute neutrophil countOrd ered By: Tay Dumont on 10-21-2024 Neutrophils (Bld) [#/Vol] 4.0 10*3/uL 2.0-7.7 [facility] Anion gap in Serum or Plasma Ordered By: Tay Dumont on 10-21-2024 Anion gap [Moles/Vol] 14 mmol/L 5-15 [facility] Automated lymphocyte count a s percentage of total leukocytesOrdered By: Tay Dumont on 10-21-2024 Lymphocytes/100 WBC Auto (Unsp spec) 16.1 % Low 19-41 [facility] BUN/creatinine ratioOrdered By: Tay Dumont on 10-21-2024 Urea nitrogen/Creatinine [Mass ratio] 9.8 mg/mg Low 10-20 [facility] Basic Metabolic Profile (BMP )on 10-21-2024 BUN/CRE 9.8 RATIO Low 10- [facility] Comment on above: Performed By: #### L 500.2500, L100.0100 ####[facility] [address] [place], [address] Calcium [Mass/Vol] 9.2 mg/dL Normal 7.6-11.0 [facility] [place] [facility] Comment on above: Performed By: #### L 500.2500, L100.0100 ####[facility] [address] [place], [address] Chloride [Moles/Vol] 102 mmol/L Normal 98-108 [facility] Comment on above: Performed By: #### L 500.2500, L100.0100 ####[facility] [address] [place], [address] CO2 [Moles/Vol] 24.0 mmol/L Normal 21.0-32.0 [facility] Comment on above: Performed By: #### L 500.2500, L100.0100 ####[facility] [address] [place], [address] Creatinine [Mass/Vol] 1.02 mg/dL Normal 0.70-1.20 [facility] Comment on above: Performed By: #### L 500.2500, L100.0100 ####[facility] [address] [place], [address] ECRCL 48.29 ml/min Low 50-250 [facility] Comment on above: Performed By: #### L 500.2500, L100.0100 ####[facility] [address] [place], [address] GAP 14 Normal 5-15 [facility] Comment on above: Performed By: #### L 500.2500, L100.0100 ####[facility] [address] [place], [address] GFR/1.73 sq M.predicted among non-blacks MDRD (S/P/Bld) [Vol rate/Area] 58 mL/min/{1.73_m2} Low >60 [facility] Comment on above: Result Comment: mL/m in/1.73m2 CKD-EPI Creatinine Equation (2020) Performed By: #### L 500.2500, L100.0100 ####[facility] [address] [place], [address] Glucose [Mass/Vol] 99 mg/dL Normal 70-99 [facility] [place] [facility] Comment on above: Performed By: #### L 500.2500, L100.0100 ####[facility] [address] [place], [address] Potassium [Moles/Vol] 3.7 mmol/L Normal 3.3-5.1 [facility] Comment on above: Performed By: #### L 500.2500, L100.0100 ####[facility] [address] [place], [address] Sodium [Moles/Vol] 140 mmol/L Normal 133-145 [facility] [place] [facility] Comment on above: Performed By: #### L 500.2500, L100.0100 ####[facility] [address] [place], [address] Urea nitrogen [Mass/Vol] 10 mg/dL Normal 4-19 [facility] Comment on above: Performed By: #### L 500.2500, L100.0100 ####[facility] [address] [place], [address] Basophil percentageOrdered B y: Tay Dumont on 10-21-2024 Basophils/100 WBC (Bld) 0.2 % 0-[address] [facility] CBC W/Diff, Automatedon Absolute Lymph 0.90 X10 3/uL Normal 0.83-4.51 [facility] Comment on above: Performed By: #### L 500.2500, L100.0100 ####[facility] [address] [place], [address] Absolute Neut 4.0 X10 3/uL Normal 2.0-7.7 [facility] Comment on above: Performed By: #### L 500.2500, L100.0100 ####[facility] [address] [place], [address] Basophils/100 WBC (Bld) 0.2 % Normal 0-[address] [facility] Comment on above: Performed By: #### L 500.2500, L100.0100 ####[facility] [address] [place], [address] Eosinophils/100 WBC (Bld) 0.2 % Normal 0-5 [facility] Comment on above: Performed By: #### L 500.2500, L100.0100 ####[facility] [address] [place], [address] Erythrocyte distribution width (RBC) [Ratio] 17.9 % High 11.6-14.6 [facility] Comment on above: Performed By: #### L 500.2500, L100.0100 ####[facility] [address] [place], [address] Hematocrit (Bld) [Volume fraction] 37.6 % Normal 37-47 [facility] Comment on above: Performed By: #### L 500.2500, L100.0100 ####[facility] [address] [place], [address] Hemoglobin (Bld) [Mass/Vol] 11.7 g/dL Low 12.0-15.0 [facility] Comment on above: Performed By: #### L 500.2500, L100.0100 ####[facility] [address] [place], [address] IG% 0.400 Normal 0.0-0.9 [facility] Comment on above: Result Comment: IG% - Immature Granulocytes (promyelocytes, myelocytes andmetamyelocytes) > 1% indicates that a LEFT SHIFT is Present. Performed By: #### L 500.2500, L100.0100 ####[facility] [address] [place], [address] Lymphocytes/100 WBC (Bld) 16.1 % Low 19-41 [facility] Comment on above: Performed By: #### L 500.2500, L100.0100 ####[facility] [address] [place], [address] MCH (RBC) [Entitic mass] 25.7 pg Low 27.0-32.0 [facility] Comment on above: Performed By: #### L 500.2500, L100.0100 ####[facility] [address] [place], [address] MCHC (RBC) [Mass/Vol] 31.1 g/dL Low 32-36 [facility] Comment on above: Performed By: #### L 500.2500, L100.0100 ####[facility] [address] [place], [address] MCV (RBC) [Entitic vol] 82.6 fL Normal 81-99 [facility] Comment on above: Performed By: #### L 500.2500, L100.0100 ####[facility] [address] [place], [address] Monocytes/100 WBC (Bld) 12.4 % High 0-[address] [facility] Comment on above: Performed By: #### L 500.2500, L100.0100 ####[facility] [address] [place], [address] Neutrophils/100 WBC (Bld) 70.7 % High 47-70 [facility] Comment on above: Performed By: #### L 500.2500, L100.0100 ####[facility] [address] [place], [address] Nucleated RBC (Bld) [#/Vol] 0 10*3/uL Normal 0-5 [facility] Comment on above: Performed By: #### L 500.2500, L100.0100 ####[facility] [address] [place], [address] Platelet mean volume (Bld) [Entitic vol] 8.6 fL Normal 6.2-12.0 [facility] Comment on above: Performed By: #### L 500.2500, L100.0100 ####[facility] [address] [place], [address] Platelets (Bld) [#/Vol] 335 10*3/uL Normal 150-450 [facility] Comment on above: Performed By: #### L 500.2500, L100.0100 ####[facility] [address] [place], [address] RBC (Bld) [#/Vol] 4.55 10*6/uL Normal 4.2-5.4 [facility] Comment on above: Performed By: #### L 500.2500, L100.0100 ####[facility] [address] [place], [address] RDW SD 53.9 fl High 35.1-43.9 [facility] Comment on above: Performed By: #### L 500.2500, L100.0100 ####[facility] [address] [place], [address] WBC (Bld) [#/Vol] 5.6 10*3/uL Normal 4.4-11.0 [facility] [place] [facility] Comment on above: Performed By: #### L 500.2500, L100.0100 ####[facility] [address] [place], [address] Carbon dioxide, total [Moles /volume] in Central venous bloodOrdered By: Tay Dumont on 10-21-2024 CO2 [Moles/Vol] 24.0 mmol/L 21.0-32.0 [facility] Chest 1 View (Portable)on Chest 1 View (Portable) Normal [facility] Chloride assayOrdered By: Dakota Dumont on 10-21-2024 Chloride [Moles/Vol] 102 mmol/L 98-108 [facility] Emergency Department Summary on 10-21-2024 Emergency Department Summary Normal [facility] Eosinophil percentageOrdered By: Tay Dumont on 10-21-2024 Eosinophils/100 WBC (Bld) 0.2 % 0-5 [facility] Erythrocyte distribution wid th (RBC) [Ratio]Ordered By: Tay Dumont on 10-21-2024 Erythrocyte distribution width (RBC) [Entitic vol] 53.9 fL High 35.1-43.9 [facility] Erythrocyte distribution wid th ratioOrdered By: Tay Dumont on 10-21-2024 Erythrocyte distribution width (RBC) [Ratio] 17.9 % High 11.6-14.6 [facility] Erythrocyte distribution wid th standard deviationOrdered By: Tay Dumont on 10-21-2024 Erythrocyte distribution width (RBC) [Ratio] 53.9 fl High 35.1-43.9 [facility] Estimation of creatinine nikki aranceOrdered By: Tay Dumont on 10-21-2024 Estimated Creatinine Clearance Calc 48.29 ml/min Low 50-250 [facility] GFR/1.73 sq M.predicted ty g non-blacks MDRD (S/P/Bld) [Vol rate/Area]Ordered By: Tay Dumont on 10-21-2024 Estimated GFR (MDRD) Non-Af Amer 58 Low >60 [facility] Comment on above: mL/min/1.73m2 CKD-EP I Creatinine Equation (2020) Glomerular filtration rate ( GFR) estimation/1.73 sq m using serum, plasma, or whole bOrdered By: Tay Dumont on 10-21-2024 GFR/1.73 sq M.predicted among non-blacks MDRD (S/P/Bld) [Vol rate/Area] 58 mL/min/{1.73_m2} Low >60 [facility] Comment on above: mL/min/1.73m2 CKD-EP I Creatinine Equation (2020) Hematocrit Auto (Bld) [Volum e fraction]Ordered By: Tay Dumont on 10-21-2024 Hematocrit (Bld) [Volume fraction] 37.6 % 37-47 [facility] Hemoglobin measurementOrdere d By: Tay Dumont on 10-21-2024 Hemoglobin (Bld) [Mass/Vol] 11.7 g/dL Low 12.0-15.0 [facility] Immature granulocytes/100 WB C Auto (Bld)Ordered By: Tay Dumont on 10-21-2024 Immature granulocytes/100 WBC (Bld) 0.400 % 0.0-0.9 [facility] Comment on above: IG% - Immature Granu locytes (promyelocytes, myelocytes and metamyelocytes) > 1% indicates that a LEFT SHIFT is Present. Lymphocytes Auto (Unsp spec) [#/Vol]Ordered By: Tay Dumont on 10-21-2024 Lymphocytes (Bld) [#/Vol] 0.90 10*3/uL 0.83-4.51 [facility] Lymphocytes/100 WBC Auto (Un sp spec)Ordered By: Tay Dumont on 10-21-2024 Lymphocytes/100 WBC (Bld) 16.1 % Low 19-41 [facility] MCV (mean corpuscular volume ) determinationOrdered By: Tay Dumont on 10-21-2024 MCV (RBC) [Entitic vol] 82.6 fL 81-[address] [facility] Mean corpuscular hemoglobin (MCH) determinationOrdered By: Tay Dumont on 10-21-2024 MCH (RBC) [Entitic mass] 25.7 pg Low 27.0-32.0 [facility] Mean corpuscular hemoglobin concentration (MCHC) determinationOrdered By: Tay Dumont on 10-21-2024 MCHC (RBC) [Mass/Vol] 31.1 g/dL Low 32-36 [facility] Mean platelet volume determi nationOrdered By: Tay Dumont on 10-21-2024 Platelet mean volume (Bld) [Entitic vol] 8.6 fL 6.2-12.0 [facility] Monocyte percentageOrdered B y: Tay Dumont on 10-21-2024 Monocytes/100 WBC (Bld) 12.4 % High 0-[address] [facility] Neutrophil percentageOrdered By: Tay Dumont on 10-21-2024 Neutrophils/100 WBC (Bld) 70.7 % High 47-70 [facility] Nucleated red blood cell per centageOrdered By: Tay Dumont on 10-21-2024 Nucleated RBC/100 WBC (Bld) [Ratio] 0 % 0-5 [facility] Platelet countOrdered By: Dakota Dumont on 10-21-2024 Platelets (Bld) [#/Vol] 335 10*3/uL 150-450 [facility] Potassium (Unsp spec) [Mass/ Vol]Ordered By: Tay Dumont on 10-21-2024 Potassium [Moles/Vol] 3.7 mmol/L 3.3-5.1 [facility] Potassium measurement (mass/ volume)Ordered By: Tay Dumont on 10-21-2024 Potassium (Unsp spec) [Mass/Vol] 3.7 mmol/L 3.3-5.1 [facility] RBC Auto (Bld) [#/Vol]Ordere d By: Tay Dumont on 10-21-2024 RBC (Bld) [#/Vol] 4.55 10*6/uL 4.2-5.4 [facility] Serum creatinine measurement (mass/volume)Ordered By: Tay Dumont on 10-21-2024 Creatinine [Mass/Vol] 1.02 mg/dL 0.70-1.20 [facility] Serum glucose measurement (m ass/volume)Ordered By: Tay Dumont on 10-21-2024 Glucose [Mass/Vol] 99 mg/dL 70-99 [facility] Serum or plasma calcium usman urement (mass/volume)Ordered By: Tay Dumont on 10-21-2024 Calcium [Mass/Vol] 9.2 mg/dL 7.6-11.0 [facility] Serum or plasma urea nitroge n measurement (mass/volume)Ordered By: Tay Dumont on 10-21-2024 Urea nitrogen [Mass/Vol] 10 mg/dL 4-19 [facility] Sodium levelOrdered By: Tay Dumont on 10-21-2024 Sodium [Moles/Vol] 140 mmol/L 133-145 [facility] [place] [facility] White blood cell (WBC) count Ordered By: Tay Dumont on 10-21-2024 WBC (Bld) [#/Vol] 5.6 10*3/uL 4.4-11.0 [facility] [place] [facility] Progress Noteon 10-20-2024 Progress Note This patient has been referred to the oncology team. The staging PET scan should be addressed by the multidisciplinary team. Giving him the diagnosis and extent of disease, surgical resection is not indicated. Normal [facility] 36on 10-18-2024 36 Pt daughter notified [facility] 36 Script sent [facility] 36 Navigator received callback from patient's daughter Diaz. Patient's daughter reports that since we are able to expedite MRI and PET scan, oncology appointment has been moved up to 10/31/2024, but this is just tentative appointment as her oncology provider in [place] is out of town and may not be back until 11/06/2024. Daughter would like Dr. 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 Normal [facility] 36 Pt daughter called and states that pt is claustrophobic. Dr. Fortune ordered a PET scan which is scheduled on 10/20/24. She is requesting something to help with anxiety prior to scan. She states what she was given for MRI brain worked great. Pharmacy confirmed. Please advise. Previous prescription was Xanax 0.5 mg tablet. [facility] 36on 10-17-2024 36 Navigator contacted patient's daughter by phone. They would like first available PET scan at any location. She is currently scheduled 10/30/24. Moved up PET scan appointment to Faxed records including path report, thoracentesis report, thoracic conference recommendations, CTS and pulmonary and cardiology consults to patient's regular oncologist, Dr. Dunham and hand finisher Rhiannon Georges in [place]. Patient has medical oncology appointment 11/06/24 but will try to move appointment sooner after PET scan. Navigator will send PET and MRI reports to providers once final . [facility] 37on 10-17-2024 37 YOUR APPOINTMENT TODAY WAS WITH THE [facility] LUNG NODULE CLINIC, COPD CLINIC, PULMONARY AND SLEEP MEDICINE OFFICE. PLEASE CALL OUR OFFICE AT [phone] IF YOU HAVE NOT RECEIVED YOUR TEST [...] feedback to make improvements. COVID-19 VACCINATION INFORMATION: . [phone] [employer]ORG/CORONAVIR US/VACCINE [facility] Central Scheduling [phone] [facility] Sleep Scheduling [phone] [facility] Office Visiton 10-17-2024 Follow-up visit [id number] Karina Fernando 1950 F Date Provider Department Center 10/17/2024 [id number] ASS, C*[facility] PUL None Family History Problem Relation Age of Onset Cancer Mother Cancer Father No Known Problems Sister No Known Problems Brother Heart disease Brother Family Status - Relation Status Age at Mother Father Sister Alive Brother Alive Brother Alive Level of Service:53740 [place] OFFICE/OUTPATIENT ESTABLISHED MOD MDM 30 MIN Reason for Visit and Comments: Follow-up [339830] [facility] Progress Noteon 10-17-2024 Progress Note [facility] Pul[facility] Critical Care Medicine [address] [place], [place] [id number] Pulmonary Patient Visit 10/17/2024 Referring Physician: UT HECTOR DO Reason for Referral: SOB 10/03/24 History of Present Illness Karina Fernando is a 73 y.o. F with history of recurrent sinus infections, COPD on symbicort/albuterol, HTN who presented for a left hilar mass. Stated that in May she began having shortness of breath which worsened until she went to the ER in [place] in August. Found on CT with a left hilar mass, left upper lobe pleural-based mass, and moderate pericardial effusion. Evaluated by oncology and recommended for PET/CT, MRI brain, and biopsy. Established with pulmonology and had been planned for EBUS in [place] but canceled after TTE demonstrated a right [...] Previously normal 10/17/24 Patient was hospitalized in [place] ER for worsening pain and shortness of breath, unchanged. Transferred to [facility]. S/p bronchoscopy 10/09/[address] Mejia. Reported [...] Dose Status acetaminophen (Tylenol) 325 MG tablet [id number] Take 2 tablets (650 mg) by mouth every 6 hours as needed for mild pain (1-3) or fever (For temp greater than 100.4 F (38 C)) for up to 10 days. Patient not taking: Reported on 10/09/2024 Emile Horne DO 10/16/24 2359 albuterol (Ventolin HFA) 108 (90 Base) MCG/ACT inhaler [id number] Yes Inhale 2 puffs every 4 hours as needed for wheezing or shortness of breath. Rachel Johnson, DO Active ALPRAZolam (Xanax) 0.5 MG tablet [id number] Take 1 tablet (0.5 mg) by mouth 1 time for 1 dose. Take 30 minutes prior to MRI Lisandra Aldridge APRN - SUPERVISOR MAINTENANCE 10/10/24 2359 Discontinued 10/17/24 1119 budesonide-formotero l (Symbicort) 80-4.5 MCG/ACT inhaler [id number] Inhale 2 puffs 2 times daily. Rachel Johnson, DO Active busPIRone (Buspar) 10 MG tablet [id number] Yes Take 10 mg by mouth 3 times daily as needed. Historical Provider, Active cholecalciferol (Vitamin D-3) 25 MCG (1000 UT) capsule [id number] Yes Take 1,000 Units by mouth daily. Historical Provider, Active ipratropium-albutero l (Duo-Neb) 0.5-2.5 mg/3 mL nebulizer solution [id number] Yes Take 3 mL by nebulization every 6 hours. Historical Provider, Active loratadine (Claritin) 5 MG chewable tablet [id number] Yes Chew 5 mg daily. Historical Provider, Active Melatonin 2.5 MG chewable tablet [id number] Yes Chew Daily as needed. Historical Provider, Active Multiple Vitamin (multivitamin) capsule [id number] Yes Take 1 capsule by mouth daily. Historical Provider, Active Currie-3 Fatty Acids (OMEGA 3 500 PO) [id number] Yes Take by mouth daily. Historical Provider, Active oxyCODONE-acetaminop hen (Percocet) 7.5-325 MG tablet [id number] Take 1 tablet by mouth every 6 hours as needed for moderate pain (4-6) for up to 5 days. Emile Horne DO (more content not included)... Normal [facility] Progress Note THORACIC ONCOLOGY AND LUNG [...] do recommendations for candace CTC: SK MR#/Epic [id number] Oncologist: Dr. Mauri Chance ([place]) CTAP: /Age [birth year] 73 yo Rad Oncologist MRI: 10/17/24 Gender Female Rivet Catcher: Dr. Lacho Kamara/ [facility] Pul PET: 10/30/24 Smoking History: ? Former 40 pk yr Quit 05/2024 PCP: Dr. Tu Hector PFT: 09/25/24 @ [facility] ?Prospective []Retrospective Bathroom Tiling Professional: Dr. Luis PATH: EBUS/TBBX 10/09/24; US Thora 10/06/24; Thyroid bx- [place] 10/10/24 (path pending) Clinical Stage: unable to stage : @ least N2 dz Path Stage: T N M Barium Swallow 10/06/24 Brief Summary Known COPD was seen in ED at [place] for eval of worsening SOB, Left shoulder, back, and lung pain, and dizziness. CT in [place] noted a left hilar mass, LEYLA mass and adenopathy, R atrial mass, pericardial effusion and thyroid nodules. Evaluated by [place] med onc and recommended to have PET, MRI and biopsy. Sent to [facility] and arranged same day urgent appts with pulmonary and cardiology. Sent for EBUS and now presents to review imaging, path, staging and plan of care. * Also completed thyroid bx @ [place] and path results are pending Recommendations: 1. [...] plan may differ from this recommendation. Normal [facility] 36on 10-11-2024 36 Pt daughter notified. Confirmed with pharmacy that prescription is ready for pickup. Normal [facility] 36on 10-10-2024 36 Script sent for 1 time dose prior to MRI- please notify patient Normal [facility] 36 Pt called and states she is claustrophobic. Dr. Fortune ordered an MRI brain which is scheduled on 10/17/24. Pt is requesting something to help with anxiety prior to scan. Pharmacy confirmed. Please advise. Normal [facility] Culture, Blood (WB)on 2024 CUB Blood cultures x2, from two different sites No growth in 5 days. Normal [facility] Comment on above: Performed By: #### L 503.6005, L500.4050, L300.3900, L100.0100, L300.4310, M200.1000 ####[facility] [id number] [place], [place], [address] FNA 1st Biopsy w/ USon 10-10 FNA 1st Biopsy w/ US Normal [facility] Special Stain Group IIon Special Stain Group II Normal [facility] Comment on above: Performed By: #### P SSII ####[facility] [id number] [place], [place], [address] 36on 10-09-2024 36 Taresa notified. Normal [facility] AFB CULTUREon 10-09-2024 AFB CULTURE AFB CULTURE Reference No growth at 6 weeks AFB STAIN Reference No acid fast bacilli seen by fluorescent microscopy ORDER COMMENTS: Stain Reference Range: No acid fast bacilli seen by fluorescent microscopy. [ S = SUSCEPTIBLE R = RESISTANT I = INTERMEDIATE S-DD = Susceptible-dose dependent NS = Non-susceptible NO = No Interpretation ] [facility] Comment on above: Performed By: #### L [id number] ####Terra Cotta Setter: GUERDA WEBBER ([id number])[facility] ([address] FUNGAL CULTUREon 10-09-2024 FUNGAL CULTURE FUNGAL CULTURE Reference No fungus isolated after 21 days [ S = SUSCEPTIBLE R = RESISTANT I = INTERMEDIATE S-DD = Susceptible-dose dependent NS = Non-susceptible NO = No Interpretation ] Normal [facility] Comment on above: Performed By: #### L [id number] #### Terra Cotta Setter: GUERDA WEBBER ([id number]) [facility]) [address] [place] [address] FUNGAL STAINon 10-09-2024 FUNGAL STAIN FUNGAL STAIN Reference No fungal elements seen ORDER COMMENTS: Reference Range: No fungal elements seen [ S = SUSCEPTIBLE R = RESISTANT I = INTERMEDIATE S-DD = Susceptible-dose dependent NS = Non-susceptible NO = No Interpretation ] Normal [facility] Comment on above: Performed By: #### L [id number], [id number] ####Terra Cotta Setter: GUERDA WEBBER ([id number])[facility])[address] [place] [address] RESPIRATORY CULTURE AND STAI Non 10-09-2024 RESPIRATORY [...] = Non-susceptible NO = No Interpretation ] [facility] Comment on above: Performed By: #### L [id number], [id number] ####Terra Cotta Setter: GUERDA WEBBER ([id number])[facility])[address] [place] [address] 30on 10-06-2024 30 Patient discharged Problem: Pain [...] and maintained or improved Outcome: Completed Normal [facility] [id number] 10-06-2024 [id number] Pt adm for tx/ eval of SOB- found to have pleural effusion. RA currently. US guided thoracentesis, XR chest and barium swallow completed. Spoke with pt and family, introduced self and roll. Pt plans to return home- no needs. Normal [facility] CBC W Auto Differential pane l (Bld)on 10-06-2024 Basophils (Bld) [#/Vol] 0 10*3/uL 0.0 - 0.2 10*3/uL [facility] Basophils/100 WBC (Bld) 0.6 % 0.0 - 2.0 % [facility] Eosinophils (Bld) [#/Vol] 0 10*3/uL 0.0 - 0.5 10*3/uL [facility] Eosinophils/100 WBC (Bld) 0.6 % 0.0 - 6.0 % [facility] Erythrocyte distribution width (RBC) [Ratio] 18.8 % High 11.5 - 15.0 % [facility] Hematocrit (Bld) [Volume fraction] 34.4 % Low 35.0 - 47.0 % [facility] Hemoglobin (Bld) [Mass/Vol] 11 g/dL Low 11.7 - 16.0 g/dL [facility] Immature granulocytes (Bld) [#/Vol] 0 10*3/uL NINF - 0.1 10*3/uL [facility] Immature granulocytes/100 WBC (Bld) 0.3 % 0.0 - 2.0 % [facility] Interpretation and review of laboratory results Abnormal [facility] Lymphocytes (Bld) [#/Vol] 0.7 10*3/uL Low 1.0 - 4.3 10*3/uL [facility] Lymphocytes/100 WBC (Bld) 20.2 % 15.0 - 45.0 % [facility] MCH (RBC) [Entitic mass] 25.9 pg Low 26.0 - 34.0 pg [facility] MCHC (RBC) [Mass/Vol] 32 % 30.5 - 36.0 % [facility] MCV (RBC) [Entitic vol] 80.9 fL 77.0 - 99.0 fL [facility] Monocytes (Bld) [#/Vol] 0.6 10*3/uL 0.0 - 0.9 10*3/uL [facility] Monocytes/100 WBC (Bld) 16.4 % High 5.0 - 13.0 % [facility] Neutrophils (Bld) [#/Vol] 2.2 10*3/uL 1.8 - 7.5 10*3/uL [facility] Neutrophils/100 WBC (Bld) 61.9 % 38.0 - 82.0 % [facility] Nucleated RBC/100 WBC (Bld) [Ratio] 0 % [facility] Platelet mean volume (Bld) [Entitic vol] 8.9 fL Low 9.0 - 12.7 fL [facility] Platelets (Bld) [#/Vol] 226 10*3/uL 140 - 440 10*3/uL [facility] RBC (Bld) [#/Vol] 4.25 10*6/uL 3.80 - 5.2 0 10*6/uL [facility] WBC (Bld) [#/Vol] 3.5 10*3/uL Low 3.6 - 10.7 10*3/uL [facility] CBC WITH AUTO DIFFERENTIALon 10-06-2024 Basophils (Bld) [#/Vol] 0.0 10*3/uL Normal 0.0-0.[address] [facility] Comment on above: Performed By: #### L [id number] ####Terra Cotta Setter: GUERDA [id number])[address] Basophils/100 WBC (Bld) 0.6 % Normal 0.0-2.0 [facility] Comment on above: Performed By: #### L [id number] ####Terra Cotta Setter: GUERDA [id number])[facility])[address] [place] [address] Eosinophils (Bld) [#/Vol] 0.0 10*3/uL Normal 0.0-0.[address] [facility] Comment on above: Performed By: #### L [id number] ####Terra Cotta Setter: GUERDA [id number])[facility])[address] [place] [address] Eosinophils/100 WBC (Bld) 0.6 % Normal 0.0-6.[address] [facility] Comment on above: Performed By: #### L [id number] ####Terra Cotta Setter: GUERDA WEBBER ([id number])[facility])[address] [place] [address] Erythrocyte distribution width (RBC) [Ratio] 18.8 % High 11.5-15.[address] [facility] Comment on above: Performed By: #### L [id number] ####Terra Cotta Setter: GUERDA WEBBER ([id number])[facility])[address] [place] [address] Hematocrit (Bld) [Volume fraction] 34.4 % Low 35.0-47.[address] [facility] Comment on above: Performed By: #### L [id number] ####Terra Cotta Setter: GUERDA WEBBER ([id number])[facility])[address] [place] [address] Hemoglobin (Bld) [Mass/Vol] 11.0 g/dL Low 11.7-16.[address] [facility] Comment on above: Performed By: #### L [id number] ####Terra Cotta Setter: GUERDA WEBBER ([id number])[facility])[address] [place] [address] IMMATURE GRANS % 0.3 % Normal 0.0-2.0 [facility] Comment on above: Performed By: #### L [id number] ####Terra Cotta Setter: GUERDA WEBBER ([id number])[facility])[address] [place] [address] IMMATURE GRANS ABSOLUTE 0.0 10*3/uL Normal <0.[address] [facility] Comment on above: Performed By: #### L [id number] ####Terra Cotta Setter: GUERDA WEBBER ([id number])[facility])[address] [place] [address] Lymphocytes (Bld) [#/Vol] 0.7 10*3/uL Low 1.0-4.[address] [facility] Comment on above: Performed By: #### L [id number] ####Terra Cotta Setter: GUERDA WEBBER ([id number])[facility])[address] [place] [address] Lymphocytes/100 WBC (Bld) 20.2 % Normal 15.0-45.[address] [facility] Comment on above: Performed By: #### L [id number] ####Terra Cotta Setter: GUERDA WEBBER ([id number])[facility])[address] [place] [address] MCH (RBC) [Entitic mass] 25.9 pg Low 26.0-34.[address] [facility] Comment on above: Performed By: #### L [id number] ####Terra Cotta Setter: GUERDA WEBBER ([id number])[facility])[address] [place] [address] MCHC 32.0 % Normal 30.5-36.[address] [facility] Comment on above: Performed By: #### L [id number] ####Terra Cotta Setter: GUERDA WEBBER ([id number])[facility])[address] [place] [address] MCV (RBC) [Entitic vol] 80.9 fL Normal 77.0-99.0 [facility] Comment on above: Performed By: #### L [id number] ####Terra Cotta Setter: GUERDA WEBBER ([id number])[facility])[address] [place] [address] Monocytes (Bld) [#/Vol] 0.6 10*3/uL Normal 0.0-0.[address] [facility] Comment on above: Performed By: #### L [id number] ####Terra Cotta Setter: GUERDA WEBBER ([id number])[facility])[address] [place] [address] Monocytes/100 WBC (Bld) 16.4 % High 5.0-13.0 [facility] Comment on above: Performed By: #### L [id number] ####Terra Cotta Setter: GUERDA WEBBER ([id number])[facility] ([facility])[address] [place] [address] NEUTROPHILS ABSOLUTE 2.2 10*3/uL Normal 1.8-7.5 [facility] Comment on above: Performed By: #### L [id number] ####Terra Cotta Setter: GUERDA WEBBER ([id number])[facility] ([facility])[address] [place] [address] Neutrophils/100 WBC (Bld) 61.9 % Normal 38.0-82.[address] [facility] Comment on above: Performed By: #### L [id number] ####Terra Cotta Setter: GUERDA WEBBER ([id number])[facility])[address] [place] [address] NRBC 0.0 /100 WBCs Normal 0.0-2.0 [facility] Comment on above: Performed By: #### L [id number] ####Terra Cotta Setter: GUERDA WEBBER ([id number])[facility] ([facility])[address] [place] [address] Platelet mean volume (Bld) [Entitic vol] 8.9 fL Low 9.0-12.[address] [facility] Comment on above: Performed By: #### L [id number] ####Terra Cotta Setter: GUERDA WEBBER ([id number])[facility] ([facility])[address] [place] [address] [place] Platelets (Bld) [#/Vol] 226 10*3/uL Normal 140-[address] [facility] Comment on above: Performed By: #### L [id number] ####Terra Cotta Setter: GUERDA WEBBER ([id number])[facility])[address] [place] [address] RBC (Bld) [#/Vol] 4.25 10*6/uL Normal 3.80-5.[address] [facility] Comment on above: Performed By: #### L [id number] ####Terra Cotta Setter: GUERDA WEBBER ([id number])[facility] [place] [address] WBC (Bld) [#/Vol] 3.5 10*3/uL Low 3.6-10.[address] [facility] Comment on above: Performed By: #### L [id number] ####Terra Cotta Setter: GUERDA WEBBER ([id number])[facility] ([facility])[address] [place] [address] COMPREHENSIVE METABOLIC PANE Duran 10-06-2024 Albumin [Mass/Vol] 3.0 g/dL Low 3.4-4.[address] [facility] Comment on above: Performed By: #### L AB17, [id number] #### Terra Cotta Setter: GUERDA WEBBER ([id number]) [facility] ([facility]) [address] [place] [address] ALP [Catalytic activity/Vol] 45 U/L Normal 40-[address] [facility] Comment on above: Performed By: #### L AB17, [id number] #### Terra Cotta Setter: GUERDA WEBBER ([id number]) [facility] ([facility]) [address] [place] [address] ALT [Catalytic activity/Vol] 9 U/L Normal <[address] [facility] Comment on above: Performed By: #### L AB17, [id number] #### Terra Cotta Setter: GUERDA WEBBER ([id number]) [facility] ([facility]) [address] [place] [address] Anion gap [Moles/Vol] 8 mmol/L Normal 3-13 [facility] Comment on above: Performed By: #### L AB17, [id number] #### Terra Cotta Setter: GUERDA WEBBER ([id number]) [facility] ([facility]) [address] [place] [address] AST [Catalytic activity/Vol] 17 U/L Normal <[address] [facility] Comment on above: Performed By: #### L AB17, [id number] #### Terra Cotta Setter: GUERDA WEBBER ([id number]) [facility] ([facility]) [address] [place] [address] [place] Bilirubin [Mass/Vol] 0.3 mg/dL Normal <1.2 [facility] Comment on above: Performed By: #### L AB17, [id number] #### Terra Cotta Setter: GUERDA WEBBER ([id number]) [facility]) [address] [place] [address] Calcium [Mass/Vol] 9.0 mg/dL Normal 8.8-10.0 [facility] Comment on above: Performed By: #### L AB17, [id number] #### Terra Cotta Setter: GUERDA WEBBER ([id number]) [facility] [address] [place] [address] Chloride [Moles/Vol] 106 mmol/L Normal 98-107 [facility] Comment on above: Performed By: #### L AB17, [id number] #### Terra Cotta Setter: GUERDA WEBBER ([id number]) [facility] [address] [place] [address] CO2 [Moles/Vol] 27 mmol/L Normal 23-31 [facility] Comment on above: Performed By: #### L AB17, [id number] #### Terra Cotta Setter: GUERDA WEBBER ([id number]) [facility] ([facility]) [address] [place] [address] Creatinine [Mass/Vol] 0.83 mg/dL Normal 0.57-1.11 [facility] Comment on above: Performed By: #### L AB17, [id number] #### Terra Cotta Setter: GUERDA WEBBER ([id number]) [facility] [facility] [address] [place] [address] [place] GLOMERULAR FILTRATION RATE ML/MIN/1.73 SQ M.PREDICTED 75.0 mL/min/1.73m*2 Normal >60.0 [facility] Comment on above: Result Comment: Calc ulation based on the Chronic Kidney Disease Epidemiology Collaboration (CKD-EPI) equation refit without adjustment for race Performed By: #### L AB17, [id number] #### Terra Cotta Setter: GUERDA WEBBER ([phone]) [facility] [address] [place] [address] Glucose [Mass/Vol] 92 mg/dL Normal 82-115 [facility] Comment on above: Performed By: #### L AB17, [id number] #### Terra Cotta Setter: GUERDA WEBBER ([phone]) [facility] ([facility]) [address] [place] [address] Potassium [Moles/Vol] 3.3 mmol/L Low 3.5-5.1 [facility] Comment on above: Result Comment: [facility] potassium values may be up to 0.5 mmol/L lower than serum values. Performed By: #### L AB17, [id number] #### Terra Cotta Setter: GUERDA WEBBER ([phone]) [facility] ([facility]) [address] [place] [address] Protein [Mass/Vol] 6.2 g/dL Low 6.4-8.3 [facility] Comment on above: Performed By: #### L AB17, [id number] #### Terra Cotta Setter: GUERDA WEBBER ([phone]) [facility] ([facility]) [address] [place] [address] Sodium [Moles/Vol] 141 mmol/L Normal 136-145 [facility] Comment on above: Performed By: #### L AB17, [id number] #### Terra Cotta Setter: GUERDA WEBBER ([phone]) [facility] ([facility]) [address] [place] [address] Urea nitrogen [Mass/Vol] 8 mg/dL Low 9-23 [facility] Comment on above: Performed By: #### L AB17, [id number] #### Terra Cotta Setter: GUERDA WEBBER ([phone]) [facility] ([facility]) [address] [place] [address] Comprehensive metabolic 1998 panelon 10-06-2024 Albumin [Mass/Vol] 3 g/dL Low 3.4 - 4.8 g/dL [facility] ALP [Catalytic activity/Vol] 45 U/L 40 - 150 U/L [facility] ALT [Catalytic activity/Vol] 9 U/L NINF - 30 U/L [facility] Anion gap [Moles/Vol] 8 mmol/L 3 - 13 mmol/L [facility] AST [Catalytic activity/Vol] 17 U/L NINF - 34 U/L [facility] Bilirubin [Mass/Vol] 0.3 mg/dL NINF - 1.2 mg/dL [facility] Calcium [Mass/Vol] 9 mg/dL 8.8 - 10. 0 mg/dL [facility] Chloride [Moles/Vol] 106 mmol/L 98 - 10 7 mmol/L [facility] CO2 [Moles/Vol] 27 mmol/L 23 - 31 mmol/L [facility] Creatinine [Mass/Vol] 0.83 mg/dL 0.57 - 1.11 mg/dL [facility] GFR/1.73 sq M.predicted (S/P/Bld) [Vol rate/Area] 75 mL/min - PINF [facility] Comment on above: Calculation based on the Chronic Kidney Disease Epidemiology Collaboration (CKD-EPI) equation refit without adjustment for race Glucose [Mass/Vol] 92 mg/dL 82 - 115 mg/dL [facility] Interpretation and review of laboratory results Abnormal [facility] Potassium [Moles/Vol] 3.3 mmol/L Low 3.5 - 5.1 mmol/L [facility] Comment on above: Plasma potassium breana ues may be up to 0.5 mmol/L lower than serum values. Protein [Mass/Vol] 6.2 g/dL Low 6.4 - 8.3 g/dL [facility] Sodium [Moles/Vol] 141 mmol/L 136 - 145 mmol/L [facility] Urea nitrogen [Mass/Vol] 8 mg/dL Low 9 - 23 mg/dL [facility] Consulton 10-06-2024 Consult [facility] [address] [place] [address] Patient - Karina Fernando - 1950 Date of Admission - 10/05/2024 8:10 PM Date of Evaluation - 10/06/2024 Room - [facility] A Hospital Day - 1 Consulting - [...] She presented to the emergency department at [facility] with worsening left shoulder, back, lung pain and lightheadedness when standing. Reportedly, she had also been experiencing voice changes and difficulty swallowing both liquids and solids with some swelling since February 2024. She is also been experiencing worsening headache, sensation of vertigo, ringing in her left ear, sensation of falling to the left side. At the [place] emergency department, she underwent a chest x-ray which demonstrated a large left-sided pleural effusion and so was sent for management to the [facility]. When I examined her this morning, [...] for a previous hospital admission at the [facility] afebrile [address] chest [...] mL, Nebulizat (more content not included)... Normal [facility] [place] MODIFIED BARIUM WITH VIDE O [...] Signed Date/Time: 10/06/2024 9:30 AM EDT Normal [facility] Laboratory - Chemistry and C hemistry - challengeon 10-06-2024 Glucose [Mass/Vol] 206 mg/dL High 70 - 100 mg/dL [facility] Glucose [Mass/Vol] 113 mg/dL High 70 - 100 mg/dL [facility] Magnesium [Mass/Vol] 1.9 mg/dL 1.6 - 2 .6 mg/dL [facility] MAGNESIUMon 10-06-2024 Magnesium [Mass/Vol] 1.9 mg/dL Normal 1.6-2.6 [facility] Comment on above: Result Comment: LILIBETH Gramajo COMMENTS: Higher values can be expected in females during menses. Performed By: #### L AB17, [id number] #### Terra Cotta Setter: GUERDA WEBBER ([phone]) [facility] ([facility]) [address] [place] [address] Magnesium [Mass/Vol]on 10-06 Interpretation and review of laboratory results Normal [facility] Higher values can be expected in females during menses. [facility] No Panel Informationon 10-06 Pleural effusion was too small to safely tap at this time, thoracentesis was not performed. If pleural fluid labs are clinically indicated, recommend short-term interval follow-up with IR to reassess fluid collection and possibly reattempt procedure. Report Dictated on Electronically Signed By: Mirta Hardin PA-C Electronically Signed Date/Time: 10/06/2024 3:55 PM EDT [facility] Patient Name: KARINA FERNANDO : 1950 Exam Date/Time: 10/06/2024 08:32 Procedure: US GUIDED THORACENTESIS Ordering Provider: TAM CANDICE Reason For Exam: left pleural effusion CLINICAL INFORMATION: Pleural effusion. Possible thoracentesis. PROCEDURE: The patient was placed seated on the ultrasound cart. A limited ultrasound of the left thorax was performed. FINDINGS: Small loculated left pleural effusion. [facility] Mirta Hardin PA-C - 10/06/2024 Patient [...] Electronically Signed Date/Time: 10/06/2024 3:55 PM EDT [facility] Interpretation and review of laboratory results Abnormal [facility] Performed by: [employer] [facility], [address] [place] [address] CLIA ID: [id number] [facility] Radiology Study observation (narrative) [facility] vaibhav Interpretation and review of laboratory results Abnormal [facility] Performed by: [facility], [address] [place] [id number] CLIA ID: [id number] [facility] No Panel InformationOrdered By: Mirta Hardin on 10-06-2024 [facility] [employer] Work Phone: Nursing Noteon 10-06-2024 Nursing Note [...] given via telephone to Fab Lawson RN. [facility] Progress Noteon 10-06-2024 Progress Note Patient chart is reviewed. Currently rounding. Full note to follow. [facility] Progress Note Speech-Language Pathology SPEECH LANGUAGE PATHOLOGY [facility] Modified Barium Swallow Study Patient Name: Karina Fernando Evaluation Date: 10/06/2024 Date of : 1950 Admission Date: 10/05/2024 8:10 PM Age: 73 y.o. Room[facility]Bed: [facility] A IMPRESSION: The patient presents with mild [...] contrast enters the airway. 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 Please reconsult [...] enteral medications NPO except: Sips of Water 10/05/24200910/05/242213 Adult diet Regular Diet effective now Question: [...] and other work up. She presented to [place] ED - with worsening left shoulder, back [...] and was sent in for management to [facility]. She has a history of hiatal hernia [...] Unable to obtain labs and imaging from [place] - Was told she has a complete [...] laryngeal pene (more content not included)... [facility] RF videography Hypopharynx a nd Esophagus Views for swallowing function W speech and W barium contrast Luis Manuel 10-06-2024 No convincing laryngeal penetration or airway aspiration. Please refer to the speech pathologist's report for additional comments and recommendation Report Dictated on Electronically Signed By: Edgardo Lorenz MD Electronically Signed Date/Time: 10/06/2024 9:30 AM EDT [facility] Patient Name: [facility]ARINA [facility]NDO [facility] 1950 [id number] Exam Date/Time: 10/06/2024 08:57 Procedure: FL MODIFIED [...] no convincing laryngeal penetration or airway aspiration. [facility] Edgardo Lorenz MD - 10/06/2024 Patient Name: [...] Electronically Signed Date/Time: 10/06/2024 9:30 AM EDT [facility] Radiology Study observation (narrative) [facility] alth RF videography Hypopharynx a nd Esophagus Views for swallowing function W speech and W barium contrast POOrdered By: Edgardo Lorenz on 10-06-2024 [employer] Work Phone: US GUIDED THORACENTESISon US GUIDED [...] Electronically Signed Date/Time: 10/06/2024 3:55 PM EDT [facility] XR CHEST 2 VIEWSon 5 XR CHEST 2 VIEWS Patient Name: KARINA FERNANDO : 1950 [facility]#: [id number] Exam Date/Time: 10/06/2024 08:54 Procedure: XR CHEST [...] Electronically Signed Date/Time: 10/06/2024 10:43 AM EDT [facility] XR Chest 2 Viewson 5 FINDINGS/IMPRESSION: Limitations: [...] Electronically Signed Date/Time: 10/06/2024 10:43 AM EDT [facility] Patient Name: KARINA FERNANDO : 1950 Exam Date/Time: 10/06/2024 08:54 Procedure: XR CHEST 2 VIEWS Ordering Provider: TAM CANDICE Reason For Exam: Pleural effusion CHEST X-RAY PA/LATERAL CLINICAL INDICATION: Pleural effusion. Patient with known left perihilar mass. TECHNIQUE: Frontal and lateral plain films of the chest were obtained. COMPARISON: CTA chest 10/05/2024 outside facility [facility] Dedrick Haq MD - 10/06/2024 Patient [...] Electronically Signed Date/Time: 10/06/2024 10:43 AM EDT [facility] Radiology Study observation (narrative) [facility] alth XR Chest 2 ViewsOrdered By: Dedrick Haq on 10-06-2024 [facility] Work Phone: [phone] [id number] to find out Formulary alternative. Normal [facility] 12 Lead EKGon 10-05-2024 12 Lead EKG Normal [facility] 36on 10-05-2024 36 Genaro explains her and her Mother are at [place] ER. Told by the Dr her Mother isn't leaving anytime soon. Her Mother had a CXR and her L lung was completely white. They are now waiting on CT results. Her Mother will eventually be transferred over to [facility] when a bed opens. Explains Her Mother wants back on Symbicort. Normal [facility] 36 Patient is active with Donald PENDLETON and ALEXUS for EBUS/ENB 02608/90800 per code check Normal [place] [address] Diaz notified. Said She is going to take her Mom to the ER here shortly.Needs to discuss with her Mother what to do with the Symbicort and will let us know. Normal [place] [address] Instructions EBUS Endobronchial Ultrasound Procedure Date: October 09, 2024 Time: 1:30 PM Arrival Time: 12:00 PM Physician: Dr. Mejia Location: [facility], Endoscopy Department, [address] [place] [address] Please arrive at the hospital registration desk 1.5 hours prior to scheduled start of procedure. Make sure you have a known responsible adult to transport you home from the hospital as you will not be permitted to drive. Your procedure will be cancelled if you do not have someone to take you home. You can only use a taxi/bus/[employer]ber/medica l transportation services representative if you have a known responsible adult to go with you. You may use [employer]. Each patient will receive one validation ticket for [employer]. Do not drink alcohol before or [...] Johnson at [address], [place], [address] to discuss results. Things to look for [...] If you have any questions, please call: [phone] RN Clinical Coordinator [facility] Pulmonary Medicine [address], [address] [place] [address] Procedure placed on physician's outlook [...] instructed t (more content not included)... Normal [facility] 36 Chief complaint/symptom: Pt's Daughter, Diaz [...] to dial 911 prior to advisement. Normal [facility] Absolute lymphocyte countOrd ered By: Marty Woods on 10-05-2024 Lymphocytes Auto (Unsp spec) [#/Vol] 1.10 10*3/uL 0.83-4.51 [facility] Absolute neutrophil countOrd ered By: Marty Woods on 10-05-2024 Neutrophils (Bld) [#/Vol] 3.0 10*3/uL 2.0-7.7 [facility] Activated partial thrombopla stin time (aPTT) in platelet poor plasma by coagulation aOrdered By: Marty Woods on 10-05-2024 aPTT Coag (PPP) [Time] 22.2 s Low 24.1-36.2 [facility] Anion gap in Serum or Plasma Ordered By: Marty Woods on 10-05-2024 Anion gap [Moles/Vol] 14 mmol/L 5-15 [facility] Automated lymphocyte count a s percentage of total leukocytesOrdered By: Marty Woods on 10-05-2024 Lymphocytes/100 WBC Auto (Unsp spec) 23.3 % 19-41 [facility] BUN/creatinine ratioOrdered By: Marty Woods on 10-05-2024 Urea nitrogen/Creatinine [Mass ratio] 10.0 mg/mg 10-20 [facility] Basophil percentageOrdered B y: Marty Woods on 10-05-2024 Basophils/100 WBC (Bld) 0.4 % 0-[address] [facility] Bilirubin, totalOrdered By: Marty Woods on 10-05-2024 Bilirubin [Mass/Vol] 0.17 mg/dL 0.00-1.30 [facility] Blood cultureOrdered By: Oj Woosd on 10-05-2024 Bacteria identified Cx Nom (Bld) No growth in 5 days. [facility] Bacteria identified Cx Nom (Bld) No growth in 5 days. [facility] CBC W/Diff, Automatedon 09-17 Absolute Lymph 1.10 X10 3/uL Normal 0.83-4.51 [facility] Comment on above: Performed By: #### L 503.6005, L500.4050, L300.3900, L100.0100, L300.4310, M200.1000 ####[facility] [address] [place], [address] Absolute Neut 3.0 X10 3/uL Normal 2.0-7.7 [facility] Comment on above: Performed By: #### L 503.6005, L500.4050, L300.3900, L100.0100, L300.4310, M200.1000 ####[facility] [address] [place], [address] Basophils/100 WBC (Bld) 0.4 % Normal 0-[address] [facility] Comment on above: Performed By: #### L 503.6005, L500.4050, L300.3900, L100.0100, L300.4310, M200.1000 ####[facility] [address] [place], [address] Eosinophils/100 WBC (Bld) 0.0 % Normal 0-5 [facility] Comment on above: Performed By: #### L 503.6005, L500.4050, L300.3900, L100.0100, L300.4310, M200.1000 ####[facility] [address] [place], [address] Erythrocyte distribution width (RBC) [Ratio] 19.0 % High 11.6-14.6 [facility] Comment on above: Performed By: #### L 503.6005, L500.4050, L300.3900, L100.0100, L300.4310, M200.1000 ####[facility] [address] [place], [address] Hematocrit (Bld) [Volume fraction] 39.2 % Normal 37-47 [facility] Comment on above: Performed By: #### L 503.6005, L500.4050, L300.3900, L100.0100, L300.4310, M200.1000 ####[facility] [address] [place], [address] Hemoglobin (Bld) [Mass/Vol] 12.3 g/dL Normal 12.0-15.0 [facility] Comment on above: Performed By: #### L 503.6005, L500.4050, L300.3900, L100.0100, L300.4310, M200.1000 ####[facility] [address] [place], [address] IG% 0.200 Normal 0.0-0.9 [facility] Comment on above: Result Comment: IG% - Immature Granulocytes (promyelocytes, myelocytes andmetamyelocytes) > 1% indicates that a LEFT SHIFT is Present. Performed By: #### L 503.6005, L500.4050, L300.3900, L100.0100, L300.4310, M200.1000 ####[facility] [address] [place], [address] Lymphocytes/100 WBC (Bld) 23.3 % Normal 19-41 [facility] Comment on above: Performed By: #### L 503.6005, L500.4050, L300.3900, L100.0100, L300.4310, M200.1000 ####[facility] [address] [place], [address] MCH (RBC) [Entitic mass] 25.6 pg Low 27.0-32.0 [facility] Comment on above: Performed By: #### L 503.6005, L500.4050, L300.3900, L100.0100, L300.4310, M200.1000 ####[facility] [address] [place], [address] MCHC (RBC) [Mass/Vol] 31.4 g/dL Low 32-36 [facility] Comment on above: Performed By: #### L 503.6005, L500.4050, L300.3900, L100.0100, L300.4310, M200.1000 ####[facility] [address] [place], [address] MCV (RBC) [Entitic vol] 81.7 fL Normal 81-99 [facility] Comment on above: Performed By: #### L 503.6005, L500.4050, L300.3900, L100.0100, L300.4310, M200.1000 ####[facility] [address] [place], [address] Monocytes/100 WBC (Bld) 12.9 % High 0-10 [facility] Comment on above: Performed By: #### L 503.6005, L500.4050, L300.3900, L100.0100, L300.4310, M200.1000 ####[facility] [address] [place], [address] Neutrophils/100 WBC (Bld) 63.2 % Normal 47-70 [facility] Comment on above: Performed By: #### L 503.6005, L500.4050, L300.3900, L100.0100, L300.4310, M200.1000 ####[facility] [address] [place], [address] Nucleated RBC (Bld) [#/Vol] 0 10*3/uL Normal 0-5 [facility] Comment on above: Performed By: #### L 503.6005, L500.4050, L300.3900, L100.0100, L300.4310, M200.1000 ####[facility] [address] [place], [address] Platelet mean volume (Bld) [Entitic vol] 8.8 fL Normal 6.2-12.0 [facility] Comment on above: Performed By: #### L 503.6005, L500.4050, L300.3900, L100.0100, L300.4310, M200.1000 ####[facility] [address] [place], [address] Platelets (Bld) [#/Vol] 278 10*3/uL Normal 150-450 [facility] Comment on above: Performed By: #### L 503.6005, L500.4050, L300.3900, L100.0100, L300.4310, M200.1000 ####[facility] [address] [place], [address] RBC (Bld) [#/Vol] 4.80 10*6/uL Normal 4.2-5.4 [facility] Comment on above: Performed By: #### L 503.6005, L500.4050, L300.3900, L100.0100, L300.4310, M200.1000 ####[facility] [address] [place], [address] RDW SD 56.2 fl High 35.1-43.9 [facility] Comment on above: Performed By: #### L 503.6005, L500.4050, L300.3900, L100.0100, L300.4310, M200.1000 ####[facility] [address] [place], [address] WBC (Bld) [#/Vol] 4.7 10*3/uL Normal 4.4-11.0 [facility] Comment on above: Performed By: #### L 503.6005, L500.4050, L300.3900, L100.0100, L300.4310, M200.1000 ####[facility] [address] [place], [address] CTA Chest W/WO Contraston CTA Chest W/WO Contrast Normal [facility] Carbon dioxide, total [Moles /volume] in Central venous bloodOrdered By: Marty Woods on 10-05-2024 CO2 [Moles/Vol] 25.1 mmol/L 21.0-32.0 [facility] Chest PA and Lateralon 10-05 Chest PA and Lateral Normal [facility] Chloride assayOrdered By: Lopez Woods on 10-05-2024 Chloride [Moles/Vol] 102 mmol/L 98-108 [facility] Comprehensive Metabolic Prof ilon 10-05-2024 Albumin [Mass/Vol] 4.2 g/dL Normal 3.4-4.8 [facility] Comment on above: Performed By: #### L 503.6005, L500.4050, L300.3900, L100.0100, L300.4310, M200.1000 ####[facility] [address] [place], [address] Albumin/Globulin [Mass ratio] 1.4 {ratio} Normal 0.9-2.4 [facility] Comment on above: Performed By: #### L 503.6005, L500.4050, L300.3900, L100.0100, L300.4310, M200.1000 ####[facility] [address] [place], [address] ALK PHOS 57 U/L Normal 35-104 [facility] Comment on above: Performed By: #### L 503.6005, L500.4050, L300.3900, L100.0100, L300.4310, M200.1000 ####[facility] [address] [place], [address] ALT [Catalytic activity/Vol] 11 U/L Normal <=34 [facility] Comment on above: Performed By: #### L 503.6005, L500.4050, L300.3900, L100.0100, L300.4310, M200.1000 ####[facility] [address] [place], [address] AST [Catalytic activity/Vol] 20 U/L Normal <=31 [facility] Comment on above: Performed By: #### L 503.6005, L500.4050, L300.3900, L100.0100, L300.4310, M200.1000 ####[facility] [address] [place], [address] Bilirubin [Mass/Vol] 0.17 mg/dL Normal 0.00-1.30 [facility] Comment on above: Performed By: #### L 503.6005, L500.4050, L300.3900, L100.0100, L300.4310, M200.1000 ####[facility] [address] [place], [address] BUN/CRE 10.0 RATIO Normal 10-20 [facility] Comment on above: Performed By: #### L 503.6005, L500.4050, L300.3900, L100.0100, L300.4310, M200.1000 ####[facility] [address] [place], [address] Calcium [Mass/Vol] 9.6 mg/dL Normal 7.6-11.0 [facility] Comment on above: Performed By: #### L 503.6005, L500.4050, L300.3900, L100.0100, L300.4310, M200.1000 ####[facility] [address] [place], [address] Chloride [Moles/Vol] 102 mmol/L Normal 98-108 [facility] Comment on above: Performed By: #### L 503.6005, L500.4050, L300.3900, L100.0100, L300.4310, M200.1000 ####[facility] [address] [place], [address] CO2 [Moles/Vol] 25.1 mmol/L Normal 21.0-32.0 [facility] Comment on above: Performed By: #### L 503.6005, L500.4050, L300.3900, L100.0100, L300.4310, M200.1000 ####[facility] [address] [place], [address] Creatinine [Mass/Vol] 0.99 mg/dL Normal 0.70-1.20 [facility] Comment on above: Performed By: #### L 503.6005, L500.4050, L300.3900, L100.0100, L300.4310, M200.1000 ####[facility] [address] [place], [place], [phone](142) ECRCL 49.48 ml/min Low 50-250 [facility] Comment on above: Performed By: #### L 503.6005, L500.4050, L300.3900, L100.0100, L300.4310, M200.1000 ####[facility] [address] [place], [address] GAP 14 Normal 5-15 [facility] Comment on above: Performed By: #### L 503.6005, L500.4050, L300.3900, L100.0100, L300.4310, M200.1000 ####[facility] [address] [place], [place], [phone]) GFR/1.73 sq M.predicted among non-blacks MDRD (S/P/Bld) [Vol rate/Area] 61 mL/min/{1.73_m2} Normal >60 [facility] Comment on above: Result Comment: mL/m in/1.73m2 CKD-EPI Creatinine Equation (2020) Performed By: #### L 503.6005, L500.4050, L300.3900, L100.0100, L300.4310, M200.1000 ####[facility] [address] [place], [address] Globulin (S) [Mass/Vol] 3.0 g/dL Normal 2.2-4.2 [facility] Comment on above: Performed By: #### L 503.6005, L500.4050, L300.3900, L100.0100, L300.4310, M200.1000 ####[facility] [address] [place], [address] Glucose [Mass/Vol] 107 mg/dL High 70-99 [facility] Comment on above: Performed By: #### L 503.6005, L500.4050, L300.3900, L100.0100, L300.4310, M200.1000 ####[facility] [address] [place], [address] Potassium [Moles/Vol] 3.3 mmol/L Normal 3.3-5.1 [facility] Comment on above: Performed By: #### L 503.6005, L500.4050, L300.3900, L100.0100, L300.4310, M200.1000 ####[facility] [address] [place], [address] Sodium [Moles/Vol] 141 mmol/L Normal 133-145 [facility] [place] Comment on above: Performed By: #### L 503.6005, L500.4050, L300.3900, L100.0100, L300.4310, M200.1000 ####[facility] [address] [place], [address] T PROT 7.2 g/dL Normal 5.9-8.4 [facility] Comment on above: Performed By: #### L 503.6005, L500.4050, L300.3900, L100.0100, L300.4310, M200.1000 ####[facility] [address] [place], [place], [id number] Urea nitrogen [Mass/Vol] 10 mg/dL Normal 4-19 [facility] Comment on above: Performed By: #### L 503.6005, L500.4050, L300.3900, L100.0100, L300.4310, M200.1000 ####[facility] [address] [place], [place], [id number] Emergency Department Summary on 10-05-2024 Emergency Department Summary Normal [facility] Eosinophil percentageOrdered By: Marty Woods on 10-05-2024 Eosinophils/100 WBC (Bld) 0.0 % 0-5 [facility] Erythrocyte distribution wid th ratioOrdered By: Marty Woods on 10-05-2024 Erythrocyte distribution width (RBC) [Ratio] 19.0 % High 11.6-14.6 [facility] Erythrocyte distribution wid th standard deviationOrdered By: Marty Woods on 10-05-2024 Erythrocyte distribution width (RBC) [Entitic vol] 56.2 fL High 35.1-43.9 [facility] Erythrocyte distribution width (RBC) [Ratio] 56.2 fl High 35.1-43.9 [facility] Estimation of creatinine nikki aranceOrdered By: Marty Woods on 10-05-2024 Estimated Creatinine Clearance Calc 49.48 ml/min Low 50-250 [facility] GFR/1.73 sq M.predicted ty g non-blacks MDRD (S/P/Bld) [Vol rate/Area]Ordered By: Marty Woods on 10-05-2024 Estimated GFR (MDRD) Non-Af Amer 61 >60 [facility] Comment on above: mL/min/1.73m2 CKD-EP I Creatinine Equation (2020) Glomerular filtration rate ( GFR) estimation/1.73 sq m using serum, plasma, or whole bOrdered By: Marty Woods on 10-05-2024 GFR/1.73 sq M.predicted among non-blacks MDRD (S/P/Bld) [Vol rate/Area] 61 mL/min/{1.73_m2} >60 [facility] Comment on above: mL/min/1.73m2 CKD-EP I Creatinine Equation (2020) Hematocrit Auto (Bld) [Volum e fraction]Ordered By: Marty Woods on 10-05-2024 Hematocrit (Bld) [Volume fraction] 39.2 % 37-47 [facility] Hemoglobin measurementOrdere d By: Marty Woods on 10-05-2024 Hemoglobin (Bld) [Mass/Vol] 12.3 g/dL 12.0-15.0 [facility] Immature granulocytes/100 WB C Auto (Bld)Ordered By: Marty Woods on 10-05-2024 Immature granulocytes/100 WBC (Bld) 0.200 % 0.0-0.9 [facility] Comment on above: IG% - Immature Granu locytes (promyelocytes, myelocytes and metamyelocytes) > 1% indicates that a LEFT SHIFT is Present. Influenza virus A and B and SARS-CoV-2 (COVID-19) and Respiratory syncytial virus RNAOrdered By: Marty Woods on 10-05-2024 SARS-CoV-2 (COVID-19) RNA MIGUE+probe Ql (Unsp spec) [facility] International normalized rat io (INR) calculationOrdered By: Marty Woods on 10-05-2024 INR Coag (Bld) [Relative time] 1.0 {INR} [facility] L499.0042on 10-05-2024 Trop T High Sen 16 ng/L High <=14 [facility] Comment on above: Performed By: #### L 499.0042 ####[facility] [address] [place], [place], [address] L499.0043on 10-05-2024 Trop T High Sen Normal <=14 [facility] Comment on above: Result Comment: PT D ISCHARGED Performed By: #### L 499.0043 ####[facility] [address] [place], [place], [address] L501.4021on 10-05-2024 Trop T High Sen 17 ng/L High <=14 [facility] Comment on above: Performed By: #### L 501.4021 ####[facility] [address] [place], [place], [id number] L503.7505on 10-05-2024 Natriuretic peptide B (Bld) [Mass/Vol] 166 pg/mL Normal <=900 [facility] Comment on above: Result Comment: Hear t Failure Unlikely: < 300 pg/mLHeart Failure Likely< 50 Years: > 450 pg/mL50-75 Years: > 900 pg/mL>75 Years: > 1800 pg/mL Performed By: #### L 503.7505 ####[facility] [address] [place], [address] Laboratory - Chemistry and C hemistry - challengeOrdered By: Marty Woods on 10-05-2024 Natriuretic peptide B (Bld) [Mass/Vol] 166 pg/mL <900 [facility] Comment on above: Heart Failure Unlike ly: < 300 pg/mLHeart Failure Likely< 50 Years: > 450 pg/mL50-75 Years: > 900 pg/mL>75 Years: > 1800 pg/mL AST [Catalytic activity/Vol] 20 U/L <32 [facility] Lactic Acidon 10-05-2024 Lactate [Moles/Vol] 1.4 mmol/L Normal 0.0-2.0 [facility] Comment on above: Order Comment: Y Performed By: #### L 503.6005, L500.4050, L300.3900, L100.0100, L300.4310, M200.1000 ####[facility] [address] [place], [address] Lactic acid measurementOrder ed By: Marty Woods on 10-05-2024 Lactate [Moles/Vol] 1.4 mmol/L 0.0-2.0 [facility] Lymphocytes Auto (Unsp spec) [#/Vol]Ordered By: Marty Woods on 10-05-2024 Lymphocytes (Bld) [#/Vol] 1.10 10*3/uL 0.83-4.51 [facility] Lymphocytes/100 WBC Auto (Un sp spec)Ordered By: Marty Woods on 10-05-2024 Lymphocytes/100 WBC (Bld) 23.3 % 19-41 [facility] M100.678on 10-05-2024 M100.678 Pending SARS-CoV-2 (COVID 19) Negative INFLUENZA A Negative INFLUENZA B Negative RSV PCR Negative Normal [facility] Comment on above: Performed By: #### M 100.678, L400.0001 ####[facility] [address] [place], [address] MCV (mean corpuscular volume ) determinationOrdered By: Marty Woods on 10-05-2024 MCV (RBC) [Entitic vol] 81.7 fL 81-[address] [facility] Mean corpuscular hemoglobin (MCH) determinationOrdered By: Marty Woods on 10-05-2024 MCH (RBC) [Entitic mass] 25.6 pg Low 27.0-32.0 [facility] Mean corpuscular hemoglobin concentration (MCHC) determinationOrdered By: Marty Woods on 10-05-2024 MCHC (RBC) [Mass/Vol] 31.4 g/dL Low 32-36 [facility] Mean platelet volume determi nationOrdered By: Marty Woods on 10-05-2024 Platelet mean volume (Bld) [Entitic vol] 8.8 fL 6.2-12.0 [facility] Monocyte percentageOrdered B y: Marty Woods on 10-05-2024 Monocytes/100 WBC (Bld) 12.9 % High 0-[address] [facility] Neutrophil percentageOrdered By: Marty Woods on 10-05-2024 Neutrophils/100 WBC (Bld) 63.2 % 47-70 [facility] No Panel InformationOrdered By: Marty Woods on 10-05-2024 Troponin T High Sensitivity 17 ng/L High <14 [facility] Comment on above: Delta: 19 on 5-1704 Nucleated red blood cell per centageOrdered By: Marty Woods on 10-05-2024 Nucleated RBC/100 WBC (Bld) [Ratio] 0 % 0-5 [facility] Partial Thromboplast Timeon 10-05-2024 aPTT Coag (Bld) [Time] 22.2 s Low 24.1-36.2 [facility] Comment on above: Performed By: #### L 503.6005, L500.4050, L300.3900, L100.0100, L300.4310, M200.1000 ####[facility] [address] [place], [address] Platelet countOrdered By: Lopez Woods on 10-05-2024 Platelets (Bld) [#/Vol] 278 10*3/uL 150-450 [facility] Potassium (Unsp spec) [Mass/ Vol]Ordered By: Marty Woods on 10-05-2024 Potassium [Moles/Vol] 3.3 mmol/L 3.3-5.1 [facility] Potassium measurement (mass/ volume)Ordered By: Marty Woods on 10-05-2024 Potassium (Unsp spec) [Mass/Vol] 3.3 mmol/L 3.3-5.1 [facility] Prothrombin Time w/INRon INR Coag (PPP) [Relative time] 1.0 {INR} Normal [facility] Comment on above: Performed By: #### L 503.6005, L500.4050, L300.3900, L100.0100, L300.4310, M200.1000 ####[facility] [address] [place], [address] PT Coag (PPP) [Time] 12.9 s Normal 11.7-14.9 [facility] Comment on above: Performed By: #### L 503.6005, L500.4050, L300.3900, L100.0100, L300.4310, M200.1000 ####[facility] [address] [place], [address] Prothrombin timeOrdered By: Marty Woods on 10-05-2024 PT Coag (PPP) [Time] 12.9 s 11.7-14.9 [facility] RBC Auto (Bld) [#/Vol]Ordere d By: Marty Woods on 10-05-2024 RBC (Bld) [#/Vol] 4.80 10*6/uL 4.2-5.4 [facility] Serum creatinine measurement (mass/volume)Ordered By: Marty Woods on 10-05-2024 Creatinine [Mass/Vol] 0.99 mg/dL 0.70-1.20 [facility] Serum globulin measurementOr dered By: Marty Woods on 10-05-2024 Globulin (S) [Mass/Vol] 3.0 g/dL 2.2-4.[address] [facility] Serum glucose measurement (m ass/volume)Ordered By: Marty Woods on 10-05-2024 Glucose [Mass/Vol] 107 mg/dL High 70-99 [facility] Serum or plasma alanine vicente otransferase (ALT) measurementOrdered By: Marty Woods on 10-05-2024 ALT [Catalytic activity/Vol] 11 U/L <35 [facility] Serum or plasma albumin usman urement (mass/volume)Ordered By: Marty Woods on 10-05-2024 Albumin [Mass/Vol] 4.2 g/dL 3.4-4.8 [facility] Serum or plasma albumin/glob ulin mass ratioOrdered By: Marty Woods on 10-05-2024 Albumin/Globulin [Mass ratio] 1.4 {ratio} 0.9-2.4 [facility] Serum or plasma alkaline marcela sphatase measurementOrdered By: Marty Woods on 10-05-2024 ALP [Catalytic activity/Vol] 57 U/L 35-104 [facility] Serum or plasma calcium usman urement (mass/volume)Ordered By: Marty Woods on 10-05-2024 Calcium [Mass/Vol] 9.6 mg/dL 7.6-11.0 [facility] Serum or plasma urea nitroge n measurement (mass/volume)Ordered By: Marty Woods on 10-05-2024 Urea nitrogen [Mass/Vol] 10 mg/dL 4-19 [facility] Sodium levelOrdered By: Deejay Woods on 10-05-2024 Sodium [Moles/Vol] 141 mmol/L 133-145 [facility] Total proteinOrdered By: Oj Woods on 10-05-2024 Protein [Mass/Vol] 7.2 g/dL 5.9-8.4 [facility] Troponin T.cardiac High sens itivity method [Mass/Vol]Ordered By: Marty Woods on 10-05-2024 Troponin T High Sensitivity 2 Hour 16 ng/L High <14 [facility] Troponin T.cardiac [Mass/vol ume] in Serum or Plasma by High sensitivity methodOrdered By: Marty Woods on 10-05-2024 Troponin T.cardiac High sensitivity method [Mass/Vol] 16 ng/L High <14 [facility] Urinalysis, Completeon 10-05 BACTERIA Normal None Seen [facility] Comment on above: Order Comment: CLEAN CATCH Result Comment: Canc elled via OM: Ordered Performed By: #### M 100.678, L400.0001 ####[facility] [address] [place], [address] BILIRUBIN URINE Normal Negative [facility] Comment on above: Order Comment: CLEAN CATCH Result Comment: Canc elled via OM: MD Ordered Performed By: #### M 100.678, L400.0001 ####[facility] [address] [place], [address] Clarity (U) Normal Clear [facility] Comment on above: Order Comment: CLEAN CATCH Result Comment: Canc elled via OM: MD Ordered Performed By: #### M 100.678, L400.0001 ####[facility] [address] [place], [address] Color (U) Normal Yellow [facility] Comment on above: Order Comment: CLEAN CATCH Result Comment: Canc elled via OM: MD Ordered Performed By: #### M 100.678, L400.0001 ####[facility] [address] [place], [address] EPI,SQUAMOUS Normal 5-10 [facility] Comment on above: Order Comment: CLEAN CATCH Result Comment: Canc elled via OM: MD Ordered Performed By: #### M 100.678, L400.0001 ####[facility] [address] [place], [address] GLUCOSE, UR Normal Normal [facility] Comment on above: Order Comment: CLEAN CATCH Result Comment: Canc elled via OM: MD Ordered Performed By: #### M 100.678, L400.0001 ####[facility] [address] [place], [address] KETONE UR Normal Negative [facility] Comment on above: Order Comment: CLEAN CATCH Result Comment: Canc elled via OM: MD Ordered Performed By: #### M 100.678, L400.0001 ####[facility] [address] [place], [address] LEUK ESTERASE Normal Negative [facility] Comment on above: Order Comment: CLEAN CATCH Result Comment: Canc elled via OM: MD Ordered Performed By: #### M 100.678, L400.0001 ####[facility] [address] [place], [address] Mucus Ql (Urine sed) Normal [facility] Comment on above: Order Comment: CLEAN CATCH Result Comment: Canc elled via OM: MD Ordered Performed By: #### M 100.678, L400.0001 ####[facility] [address] [place], [address] Nitrite Ql (U) Normal Negative [facility] Comment on above: Order Comment: CLEAN CATCH Result Comment: Canc elled via OM: MD Ordered Performed By: #### M 100.678, L400.0001 ####[facility] [address] [place], [address] OCCULT BLOOD-UR Normal Negative [facility] Comment on above: Order Comment: CLEAN CATCH Result Comment: Canc elled via OM: MD Ordered Performed By: #### M 100.678, L400.0001 ####[facility] [address] [place], [address] pH UR Normal 5.0 - 8.0 [facility] Comment on above: Order Comment: CLEAN CATCH Result Comment: Canc elled via OM: MD Ordered Performed By: #### M 100.678, L400.0001 ####[facility] [address] [place], [address] PROT DIPSTX Normal Negative [facility] Comment on above: Order Comment: CLEAN CATCH Result Comment: Canc elled via OM: MD Ordered Performed By: #### M 100.678, L400.0001 ####[facility] [address] [place], [address] RBC Normal 0-5 [facility] Comment on above: Order Comment: CLEAN CATCH Result Comment: Canc elled via OM: MD Ordered Performed By: #### M 100.678, L400.0001 ####[facility] [address] [place], [address] SP.GR. DIPSTX Normal 1.002-1.030 [facility] Comment on above: Order Comment: CLEAN CATCH Result Comment: Canc elled via OM: MD Ordered Performed By: #### M 100.678, L400.0001 ####[facility] [address] [place], [address] UR Preservative Normal [facility] Comment on above: Order Comment: CLEAN CATCH Result Comment: Canc elled via OM: MD Ordered Performed By: #### M 100.678, L400.0001 ####[facility] [address] [place], [address] UROBILI Normal Normal [facility] Comment on above: Order Comment: CLEAN CATCH Result Comment: Canc elled via OM: MD Ordered Performed By: #### M 100.678, L400.0001 ####[facility] [address] [place], [address] WBC Normal 0-5 [facility] Comment on above: Order Comment: CLEAN CATCH Result Comment: Nancy elllenora via OM: MD Ordered Performed By: #### M 100.678, L400.0001 ####[facility] [address] [place], [address] White blood cell (WBC) count Ordered By: Marty Woods on 10-05-2024 WBC (Bld) [#/Vol] 4.7 10*3/uL 4.4-11.0 [facility] aPTT Coag (PPP) [Time]Ordere d By: Marty Woods on 10-05-2024 aPTT Coag (Bld) [Time] 22.2 s Low 24.1-36.2 [facility] 36on 10-03-2024 36 Navigator contacted the office of Rhiannon Georges CNP at [place] pulmonary. Requested pulmonary function test and will scanned to media tab when available. [facility] [address] Johnson during [facility] appt. Patient has a pericardial effusion and cardiac lesion. She has been lightheaded for a few days and expedited cardiology eval is recommended. Spoke with cardiology office at [phone] and arranged for appt with Dr. Luis at [address] [place] [address] Johnson will send patient right over. Normal [facility] 36 Navigator received request from cardiothoracic surgery office to assist with expediting lung nodule clinic evaluation. Patient lives far away and [facility] is hoping patient can be seen while on campus. Patient was seen by Dr. Silvio Fortune this morning and needs pulmonary evaluation prior to surgical consideration. Verified prior images and reports from [facility] are available for review in PACS. Scanned imaging reports including CT chest imaging, thyroid imaging and provider office notes from medical oncology and pulmonary in [place] to the media tab. Patient will see Dr. Lacho Kamara now to further evaluate left hilar mass and adenopathy first noted on CT imaging 09/13/2024 in [place]. Normal [facility] 37on 10-03-2024 37 YOUR APPOINTMENT TODAY WAS WITH THE [facility] LUNG NODULE CLINIC, COPD CLINIC, PULMONARY AND SLEEP MEDICINE OFFICE. PLEASE CALL OUR OFFICE AT [phone] IF YOU HAVE NOT RECEIVED YOUR TEST [...] to make improvements. COVID-19 VACCINATION INFORMATION: PH. [phone] [employer]ORG/CORONAVIR US/VACCINE [facility] Central Scheduling [phone] [facility] Sleep Scheduling [phone] Normal [facility] Office Visiton 10-03-2024 Follow-up visit [id number] AbdullahiAlexus encarnacioncesar Maxwell 1950 F Date Provider Department Center 10/03/2024 [id number]-YEOMONWWLSKWILFRIDO EDGAR [facility] JERAMIE SHMGCV [address] Family History Problem Relation Age of Onset Cancer Mother Cancer Father No Known Problems Sister No Known Problems Brother Heart disease Brother Family Status - Relation Status Age at Mother Father Sister Alive Brother Alive Brother Alive Level of Service:14595 [place] OFFICE/OUTPATIENT NEW MODERATE MDM 45 MINUTES Reason for Visit and Comments: New Patient [542] Shortness of Breath [340211] - >1yr Normal [facility] Follow-up visit [id number] Karina Fernando Hans 1950 F Date Provider Department Center 10/03/2024 [id number]-NSDZZJH-CZRQIG ASS, C*[facility] A[facility] PUL None Family History Problem Relation Age of Onset Cancer Mother Cancer Father No Known Problems Sister No Known Problems Brother Heart disease Brother Family Status - Relation Status Age at Mother Father Sister Alive Brother Alive Brother Alive Level of Service:97003 [place] OFFICE/OUTPATIENT NEW MODERATE MDM 45 MINUTES Reason for Visit and Comments: New Patient [542] Normal [facility] Follow-up visit [id number] Tran 1950 F Date Provider Department Center 10/03/2024 [id number]-KTHUTMDSILVIO FORTUNE [facility] A[facility] CT None Family History Problem Relation Age of Onset Cancer Mother Cancer Father No Known Problems Sister No Known Problems Brother Heart disease Brother Family Status - Relation Status Age at Mother Father Sister Alive Brother Alive Brother Alive Level of Service:66513 [place] OFFICE/OUTPATIENT NEW HIGH MDM 60 MINUTES Reason for Visit and Comments: New Patient [542] Normal [facility] Progress Noteon 10-03-2024 Progress Note [facility] Cardiology Note DATE of SERVICE:10/03/24 TIME of SERVICE: 2:41 PM Chief Complaint: Chief Complaint Patient presents with New Patient Shortness of Breath >1yr History of PresentIllness: Karina Fernando is a 73 y.o. female with a long history of tobacco use who was evaluated for shortness of breath. 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 She was seen by pulmonary and scheduled for a biopsy also seen by Dr. Fortune. In the meantime however an echocardiogram that was done at [facility] reported a small pericardial effusion and a mass on the patient's right intra-atrial septum. Her biopsy was canceled and she was referred here to cardiology for an evaluation. I reviewed the echocardiogram that was done at [place], there is a very small hemodynamically insignificant [...] capsule by mouth daily., Disp: , Rfl: Currie-3 Fatty Acids (OMEGA 3 500 PO), Take [...] is 28.8 (more content not included)... Normal [facility] Progress Note [facility] Pulmonary Critical Care Medicine [address] [place] [id number] Pulmonary Patient Visit - New 10/03/2024 Referring Physician: TU HECTOR DO Reason for Referral: SOB History of Present Illness Karina Fernando is a 73 y.o. F with history of recurrent sinus infections, COPD on symbicort/albuterol, HTN who presented for a left hilar mass. Stated that in May she began having shortness of breath which worsened until she went to the ER in [place] in August. Found on CT with a left hilar mass, left upper lobe pleural-based mass, and moderate pericardial effusion. Evaluated by oncology and recommended for PET/CT, MRI brain, and biopsy. Established with pulmonology and had been planned for EBUS in [place] but canceled after TTE demonstrated a right [...] acetaminophen (Tylenol Extra Strength) 500 MG tablet [id number] Yes Take by mouth. Historical ProviderMD Not Taking Active albuterol (Ventolin HFA) 108 (90 Base) MCG/ACT inhaler [id number] Inhale 2 puffs every 4 hours as needed for wheezing or shortness of breath. Rachel Johnson DO Active busPIRone (Buspar) 10 MG tablet [id number] Yes Take 10 mg by mouth 3 times daily as needed. Historical Provider, Taking Active cetirizine (ZyrTEC) 10 MG tablet [id number] Yes Take 10 mg by mouth daily. Historical Provider, Taking Active cholecalciferol (Vitamin D-3) 25 MCG (1000 UT) capsule [id number] Yes Take 1,000 Units by mouth daily. Historical ProviderMD Active Fluticasone-Umeclidi n-Vilant (Trelegy Ellipta) 100-62.5-25 MCG/ACT aerosol powder [id number] Inhale 1 Inhalation daily. Rachel Johnson, Active gabapentin (Neurontin) 300 MG capsule [id number] Yes Take 300 mg by mouth 3 times daily. Historical ProviderMD Not Taking Active hydroCHLOROthiazide (HYDRODiuril) 25 MG tablet [id number] Yes Take 25 mg by mouth daily. Historical Provider, Taking Active loratadine (Claritin) 5 MG chewable tablet [id number] Yes Chew 5 mg daily. Historical ProviderMD Active Melatonin 2.5 MG chewable tablet [id number] Yes Chew Daily as needed. Historical ProviderMD Not Taking Active meloxicam (Mobic) 15 MG tablet [id number] Yes Take by mouth daily. Historical ProviderMD Not Taking Active Multiple Vitamin (multivitamin) capsule [id number] Yes Take 1 capsule by mouth daily. Historical ProviderMD Active Currie-3 Fatty Acids (OMEGA 3 500 PO) [id number] Yes Take by mouth daily. Historical Provider, Taking Active oxyCODONE-acetaminop hen (Percocet) 5-325 MG tablet [id number] Yes Historical Provider, Taking Active simvastatin (Zocor) 20 MG tablet [id number] Yes Take 20 mg by mouth Nightly. Historical ProviderMD Taking Active traZODone (Desyrel) 100 MG tablet [id number] Yes Take 100 mg by mouth Nightly. Historical ProviderMD Taking Active valACYclovir (Valtrex) 500 MG tablet [id number] Yes Take by mouth daily. Historical ProviderMD Not Taking Active Vitamin E 268 MG (400 UNIT) capsule [id number] Yes Take by mouth daily. Historical ProviderMD Taking Active Social History Social History Tobacco Use Smoking status: Former Average packs/day: (more content not included)... Normal [facility] Progress Note [facility] CARDIOVASCULAR & THORACIC SURGERY [address] [facility] [address] [facility] [address] Dept: [phone] Dept Loc: [phone] Visit type: New Reason for Visit: AP [...] effusion. Per note, pt had presented to [place] ED in August 2023 for dyspnea. CTA [...] tablet, Take by mouth., Disp: , Rfl: Currie-3 Fatty Acids (OMEGA 3 500 PO), Take [...] mucus m (more content not included)... Normal [facility] Office Visit Reporton 2024 Office Visit Report Normal [facility] Activated partial thrombopla stin time (aPTT) in platelet poor plasma by coagulation aOrdered By: Rhiannon Georges on 09-22-2024 aPTT Coag (PPP) [Time] 21.2 s Low 24.1-36.2 [facility] International normalized rat io (INR) calculationOrdered By: Rhiannon Georges on 09-22-2024 INR Coag (Bld) [Relative time] 0.9 {INR} [facility] Partial Thromboplast Timeon 09-22-2024 aPTT Coag (Bld) [Time] 21.2 s Low 24.1-36.2 [facility] Comment on above: Performed By: #### L 300.4310, L300.3900 ####[facility] [address] [place], [address] Prothrombin Time w/INRon INR Coag (PPP) [Relative time] 0.9 {INR} Normal [facility] Comment on above: Performed By: #### L 300.4310, L300.3900 ####[facility] [address] [place], [address] PT Coag (PPP) [Time] 12.8 s Normal 11.7-14.9 [facility] [place] [facility] Comment on above: Performed By: #### L 300.4310, L300.3900 ####[facility] [address] [place], [address] Prothrombin timeOrdered By: Rhiannon Georges on 09-22-2024 PT Coag (PPP) [Time] 12.8 s 11.7-14.9 [facility] [place] [facility] Pulmonary Visit Reporton Pulmonary Visit Report Normal [facility] aPTT Coag (PPP) [Time]Ordere d By: Rhiannon Georges on 09-22-2024 aPTT Coag (Bld) [Time] 21.2 s Low 24.1-36.2 [facility] US THYROIDon 09-19-2024 US THYROID ORIGINAL EXAMINATION: [...] 09/19/2024 1:04:03 PM Ordering Provider: JOSELIN Botello [facility] Oncology Visit Reporton Oncology Visit Report Normal [facility] XR CHEST 2 VIEWSon XR CHEST [...] 09/14/2024 4:52:34 PM Ordering Provider: JOSELIN Botello [facility] .GFRon 09-13-2024 Estimated Glomerular Filtration Rate 50 ml/min/1.73sqm [facility] Comment on above: Result Comment: Stages of [...] FT4, DIFF, MORPH, CMP, CBC, PBNP #### [place] [address] .Manual Diffon 09-13-2024 Basophil %, Manual 0.0 % Normal 0.0-2.5 [facility] Comment on above: Performed By: #### G FR, TSH, FT4, DIFF, MORPH, CMP, CBC, PBNP #### [place] [address] Basophil, Abs Manual 0.0 10 3/mcL Normal 0.0-0.[address] [facility] Comment on above: Performed By: #### G FR, TSH, FT4, DIFF, MORPH, CMP, CBC, PBNP #### [place] [address] Eosinophil %, Manual 0.0 % Normal 0.0-7.0 [facility] Comment on above: Performed By: #### G FR, TSH, FT4, DIFF, MORPH, CMP, CBC, PBNP #### [place] [address] Eosinophil, Abs Manual 0.0 10 3/mcL Normal 0.0-0.7 [facility] Comment on above: Performed By: #### G FR, TSH, FT4, DIFF, MORPH, CMP, CBC, PBNP #### [place] [address] Lymphocyte %, Manual 32.0 % Normal 20.0-40.0 [facility] Comment on above: Performed By: #### G FR, TSH, FT4, DIFF, MORPH, CMP, CBC, PBNP #### [place] [address] Lymphocyte, Abs Manual 1.8 10 3/mcL Normal 0.9-4.3 [facility] Comment on above: Performed By: #### G FR, TSH, FT4, DIFF, MORPH, CMP, CBC, PBNP #### [address] [address] Monocyte %, Manual 16.0 % High 2.0-13.0 [facility] Comment on above: Performed By: #### G FR, TSH, FT4, DIFF, MORPH, CMP, CBC, PBNP #### [address] [address] Monocyte, Abs Manual 0.9 10 3/mcL Normal 0.1-1.[address] [facility] Comment on above: Performed By: #### G FR, TSH, FT4, DIFF, MORPH, CMP, CBC, PBNP #### [address] [address] Neutrophil %, Manual 52.0 % Normal 50.0-75.0 [facility] Comment on above: Performed By: #### G FR, TSH, FT4, DIFF, MORPH, CMP, CBC, PBNP #### [address] [address] Neutrophil, Abs Manual 2.9 10 3/mcL Normal 2.3-8.1 [facility] Comment on above: Performed By: #### G FR, TSH, FT4, DIFF, MORPH, CMP, CBC, PBNP #### [address] [address] Nucleated RBC 0.0 /100 WBC Normal [facility] Comment on above: Performed By: #### G FR, TSH, FT4, DIFF, MORPH, CMP, CBC, PBNP #### [address] [address] .Morphon 09-13-2024 Anisocytosis Ql (Bld) 2+ Normal [facility] Comment on above: Performed By: #### G FR, TSH, FT4, DIFF, MORPH, CMP, CBC, PBNP #### [address] [address] Microcytosis 2+ Normal [facility] Comment on above: Performed By: #### G FR, TSH, FT4, DIFF, MORPH, CMP, CBC, PBNP #### [place] [id number] [place], [place] [address] Platelet Estimate Normal Normal [facility] Comment on above: Performed By: #### G FR, TSH, FT4, DIFF, MORPH, CMP, CBC, PBNP #### [place] [id number] [place], [place] [address] 12 Lead EKGon 09-13-2024 12 Lead EKG Normal [facility] Absolute lymphocyte countOrd ered By: ED PROVIDER on 09-13-2024 Lymphocytes Auto (Unsp spec) [#/Vol] 1.62 10*3/uL 0.83-4.51 [facility] Absolute neutrophil countOrd ered By: ED PROVIDER on 09-13-2024 Neutrophils (Bld) [#/Vol] 3.0 10*3/uL 2.0-7.7 [facility] Atypical lymphocyte percenta geOrdered By: ED PROVIDER on 09-13-2024 Atypical Lymphocytes 1+ % [facility] [place] [facility] Automated lymphocyte count a s percentage of total leukocytesOrdered By: ED PROVIDER on 09-13-2024 Lymphocytes/100 WBC Auto (Unsp spec) 29.3 % 19-41 [facility] BUN/creatinine ratioOrdered By: ED PROVIDER on 09-13-2024 Urea nitrogen/Creatinine [Mass ratio] 8.2 mg/mg Low - [facility] Basic Metabolic Profile (BMP )on 09-13-2024 Anion gap [Moles/Vol] 12 mmol/L Normal 5-15 [facility] Comment on above: Performed By: #### L 500.2500, L100.0100 ####[facility] [address] [place], [place], [id number] BUN/CRE 8.2 RATIO Low 10- [facility] Comment on above: Performed By: #### L 500.2500, L100.0100 ####[facility] [address] [place], [address] Calcium [Mass/Vol] 9.1 mg/dL Normal 7.6-11.0 [facility] [place] [facility] Comment on above: Performed By: #### L 500.2500, L100.0100 ####[facility] [address] [place], [address] Chloride [Moles/Vol] 101 mmol/L Normal 96-108 [facility] [place] [facility] Comment on above: Performed By: #### L 500.2500, L100.0100 ####[facility] [address] [place], [address] CO2 [Moles/Vol] 27.1 mmol/L Normal 22.0-29.0 [facility] Comment on above: Performed By: #### L 500.2500, L100.0100 ####[facility] [address] [place], [address] Creatinine [Mass/Vol] 1.0 mg/dL Normal 0.6-1.0 [facility] Comment on above: Performed By: #### L 500.2500, L100.0100 ####[facility] [address] [place], [address] GFR/1.73 sq M.predicted among non-blacks MDRD (S/P/Bld) [Vol rate/Area] 62 mL/min/{1.73_m2} Normal >60 [facility] Comment on above: Result Comment: mL/m in/1.73m2 CKD-EPI Creatinine Equation (2020) Performed By: #### L 500.2500, L100.0100 ####[facility] [address] [place], [address] Glucose [Mass/Vol] 112 mg/dL High 70-99 [facility] [place] [facility] Comment on above: Performed By: #### L 500.2500, L100.0100 ####[facility] [address] [place], [address] Potassium [Moles/Vol] 4.1 mmol/L Normal 3.3-5.1 [facility] Comment on above: Performed By: #### L 500.2500, L100.0100 ####[facility] [address] [place], [address] Sodium [Moles/Vol] 139 mmol/L Normal 133-145 [facility] [place] [facility] Comment on above: Performed By: #### L 500.2500, L100.0100 ####[facility] [address] [place], [address] Urea nitrogen [Mass/Vol] 8 mg/dL Normal 4-19 [facility] Comment on above: Performed By: #### L 500.2500, L100.0100 ####[facility] [address] [place], [address] Basophil percentageOrdered B y: ED PROVIDER on 09-13-2024 Basophils/100 WBC (Bld) 0.7 % 0-[address] [facility] Fide cells LM Ql (Bld)Ordere d By: ED PROVIDER on 09-13-2024 Fide Cells RARE [facility] CBCon 09-13-2024 Erythrocyte distribution width (RBC) [Ratio] 25.1 % High 11.5-15.5 [facility] Comment on above: Performed By: #### G FR, TSH, FT4, DIFF, MORPH, CMP, CBC, PBNP #### [facility] [address] [place], [place] [address] Hematocrit (Bld) [Volume fraction] 36.6 % Normal 34.0-46.0 [facility] Comment on above: Performed By: #### G FR, TSH, FT4, DIFF, MORPH, CMP, CBC, PBNP #### [facility] [address] [place], [place] [address] Hgb 11.7 G/dL Low 12.0-16.0 [facility] Comment on above: Performed By: #### G FR, TSH, FT4, DIFF, MORPH, CMP, CBC, PBNP #### [address] [address] MCH (RBC) [Entitic mass] 25.1 pg Low 27.0-33.0 [facility] Comment on above: Performed By: #### G FR, TSH, FT4, DIFF, MORPH, CMP, CBC, PBNP #### [address] [address] MCHC 32.0 G/dL Normal 32.0-36.0 [facility] Comment on above: Performed By: #### G FR, TSH, FT4, DIFF, MORPH, CMP, CBC, PBNP #### [address] [address] MCV (RBC) [Entitic vol] 78.7 fL Low 80.0-99.0 [facility] Comment on above: Performed By: #### G FR, TSH, FT4, DIFF, MORPH, CMP, CBC, PBNP #### [address] [address] Platelet 283 10 3/mcL Normal 150-450 [facility] Comment on above: Performed By: #### G FR, TSH, FT4, DIFF, MORPH, CMP, CBC, PBNP #### [address] [address] Platelet mean volume (Bld) [Entitic vol] 7.0 fL Normal 6.6-10.5 [facility] Comment on above: Performed By: #### G FR, TSH, FT4, DIFF, MORPH, CMP, CBC, PBNP #### [address] [address] RBC 4.66 10 6/mcL Normal 4.10-5.30 [facility] Comment on above: Performed By: #### G FR, TSH, FT4, DIFF, MORPH, CMP, CBC, PBNP #### [address] [address] WBC 5.6 10 3/mcL Normal 4.5-10.8 [facility] Comment on above: Performed By: #### G FR, TSH, FT4, DIFF, MORPH, CMP, CBC, PBNP #### [place] [id number] [place], [place] [address] CBC W/Diff, Automatedon 08-20 FIDE CELLS RARE Normal [facility] Comment on above: Performed By: #### L 500.2500, L100.0100 ####[facility] [address] [place], [address] Anisocytosis Ql (Bld) 1+ Normal [facility] Comment on above: Performed By: #### L 500.2500, L100.0100 ####[facility] [address] [place], [address] ATYPICAL LYMPH 1+ Normal [facility] Comment on above: Performed By: #### L 500.2500, L100.0100 ####[facility] [address] [place], [address] TARGET CELLS 1+ Normal [facility] Comment on above: Performed By: #### L 500.2500, L100.0100 ####[facility] [address] [place], [address] CMPon 09-13-2024 Albumin Level 3.6 G/dL Normal 3.4-4.8 [facility] Comment on above: Performed By: #### G FR, TSH, FT4, DIFF, MORPH, CMP, CBC, PBNP #### [address] [place] [address] [place], [place] [address] Albumin/Globulin [Mass ratio] 1.1 {ratio} Normal 1.1-2.5 [facility] Comment on above: Performed By: #### G FR, TSH, FT4, DIFF, MORPH, CMP, CBC, PBNP #### [address] [place] [address] [place], [place] [address] ALP [Catalytic activity/Vol] 67 U/L Normal 40-135 [facility] Comment on above: Performed By: #### G FR, TSH, FT4, DIFF, MORPH, CMP, CBC, PBNP #### [address] [address] ALT [Catalytic activity/Vol] 28 U/L Normal 14-59 [facility] Comment on above: Performed By: #### G FR, TSH, FT4, DIFF, MORPH, CMP, CBC, PBNP #### [address] [address] AST [Catalytic activity/Vol] 20 U/L Normal 10-40 [facility] Comment on above: Performed By: #### G FR, TSH, FT4, DIFF, MORPH, CMP, CBC, PBNP #### [address] [address] Bili Total 0.2 mg/dL Normal 0.2-1.0 [facility] Comment on above: Result Comment: Use of this assay is not recommended for patients undergoing treatment with eltrombopag due to the potential for falsely elevated results. Performed By: #### G FR, TSH, FT4, DIFF, MORPH, CMP, CBC, PBNP #### [address] [address] BUN/Creatinine Ratio 7 ratio Normal 7-27 [facility] Comment on above: Performed By: #### G FR, TSH, FT4, DIFF, MORPH, CMP, CBC, PBNP #### [address] [address] Calcium [Mass/Vol] 9.6 mg/dL Normal 8.4-10.2 [facility] Comment on above: Performed By: #### G FR, TSH, FT4, DIFF, MORPH, CMP, CBC, PBNP #### [address] [address] Chloride [Moles/Vol] 102 mmol/L Normal 98-107 [facility] Comment on above: Performed By: #### G FR, TSH, FT4, DIFF, MORPH, CMP, CBC, PBNP #### [address] [address] CO2 [Moles/Vol] 34 mmol/L High 23-31 [facility] Comment on above: Performed By: #### G FR, TSH, FT4, DIFF, MORPH, CMP, CBC, PBNP #### [address] [address] Creatinine [Mass/Vol] 1.16 mg/dL High 0.55-1.[address] [facility] Comment on above: Result Comment: Test ing performed on Siemens Dimension EXL analyzer using a modified kinetic Cristina technique. Performed By: #### G FR, TSH, FT4, DIFF, MORPH, CMP, CBC, PBNP #### [address] [address] Electrolyte Balance 3.0 mEq/L Low 4.0-15.0 [facility] Comment on above: Performed By: #### G FR, TSH, FT4, DIFF, MORPH, CMP, CBC, PBNP #### [address] [address] Globulin 3.3 G/dL Normal 1.5-3.8 [facility] Comment on above: Performed By: #### G FR, TSH, FT4, DIFF, MORPH, CMP, CBC, PBNP #### [address] [address] Glucose [Mass/Vol] 94 mg/dL Normal 83-110 [facility] Comment on above: Performed By: #### G FR, TSH, FT4, DIFF, MORPH, CMP, CBC, PBNP #### [address] [address] Potassium [Moles/Vol] 3.8 mmol/L Normal 3.5-5.[address] [facility] Comment on above: Performed By: #### G FR, TSH, FT4, DIFF, MORPH, CMP, CBC, PBNP #### [address] [address] Sodium [Moles/Vol] 139 mmol/L Normal 136-145 [facility] Comment on above: Performed By: #### G FR, TSH, FT4, DIFF, MORPH, CMP, CBC, PBNP #### [facility] [address] [place], [place] [address] Total Protein 6.9 G/dL Normal 6.4-8.2 [facility] Comment on above: Performed By: #### G FR, TSH, FT4, DIFF, MORPH, CMP, CBC, PBNP #### [facility] [address] [place], [place] [address] Urea nitrogen [Mass/Vol] 8 mg/dL Normal 7-18 [facility] Comment on above: Performed By: #### G FR, TSH, FT4, DIFF, MORPH, CMP, CBC, PBNP #### [facility] [address] [place], [place] [address] CTA Chest W/WO Contraston CTA Chest W/WO Contrast Normal [facility] Carbon dioxide measurementOr dered By: ED PROVIDER on 09-13-2024 CO2 [Moles/Vol] 27.1 mmol/L 22.0-29.0 [facility] Chest PA and Lateralon 09-13 Chest PA and Lateral Normal [facility] [place] [facility] Chloride measurementOrdered By: ED PROVIDER on 09-13-2024 Chloride [Moles/Vol] 101 mmol/L 96-108 [facility] [place] [facility] Creatinine [Moles/Vol]Ordere d By: ED PROVIDER on 09-13-2024 Creatinine [Mass/Vol] 1.0 mg/dL 0.6-1.0 [facility] Crenated erythrocyte detecti on by light microscopyOrdered By: ED PROVIDER on 09-13-2024 [place] cells LM Ql (Bld) RARE [facility] Emergency Department Summary on 09-13-2024 Emergency Department Summary Normal [facility] Eosinophil percentageOrdered By: ED PROVIDER on 09-13-2024 Eosinophils/100 WBC (Bld) 0.4 % 0-5 [facility] Erythrocyte distribution wid th ratioOrdered By: ED PROVIDER on 09-13-2024 Erythrocyte distribution width (RBC) [Ratio] 22.8 % High 11.6-14.6 [facility] Erythrocyte distribution wid th standard deviationOrdered By: ED PROVIDER on 09-13-2024 Erythrocyte distribution width (RBC) [Entitic vol] 65.5 fL High 35.1-43.9 [facility] Erythrocyte distribution width (RBC) [Ratio] 65.5 fl High 35.1-43.9 [facility] FT4on 09-13-2024 Free T4 [Mass/Vol] 1.15 ng/dL Normal 0.76-1.46 [facility] Comment on above: Performed By: #### G FR, TSH, FT4, DIFF, MORPH, CMP, CBC, PBNP #### [id number] [place], [place] [address] GFR/1.73 sq M.predicted ty g non-blacks MDRD (S/P/Bld) [Vol rate/Area]Ordered By: ED PROVIDER on 09-13-2024 Estimated GFR (MDRD) Non-Af Amer 62 >60 [facility] Comment on above: mL/min/1.73m2 CKD-EP I Creatinine Equation (2020) Glomerular filtration rate ( GFR) estimation/1.73 sq m using serum, plasma, or whole bOrdered By: ED PROVIDER on 09-13-2024 GFR/1.73 sq M.predicted among non-blacks MDRD (S/P/Bld) [Vol rate/Area] 62 mL/min/{1.73_m2} >60 [facility] Comment on above: mL/min/1.73m2 CKD-EP I Creatinine Equation (2020) Hematocrit Auto (Bld) [Volum e fraction]Ordered By: ED PROVIDER on 09-13-2024 Hematocrit (Bld) [Volume fraction] 37.7 % 37-47 [facility] Hemoglobin measurementOrdere d By: ED PROVIDER on 09-13-2024 Hemoglobin (Bld) [Mass/Vol] 11.4 g/dL Low 12.0-15.0 [facility] Immature granulocytes/100 WB C Auto (Bld)Ordered By: ED PROVIDER on 09-13-2024 Immature granulocytes/100 WBC (Bld) 0.400 % 0.0-0.9 [facility] Comment on above: IG% - Immature Granu locytes (promyelocytes, myelocytes and metamyelocytes) > 1% indicates that a LEFT SHIFT is Present. Influenza virus A and B and SARS-CoV-2 (COVID-19) and Respiratory syncytial virus RNAOrdered By: Chris Maria on 09-13-2024 SARS-CoV-2 (COVID-19) RNA MIGUE+probe Ql (Unsp spec) [facility] L501.4021on 09-13-2024 Trop T High Sen 19 ng/L High <=14 [facility] Comment on above: Performed By: #### L 501.4021 ####[facility] [address] [place], [address] LABORATORYOrdered By: SYSTEM SYSTEM on 09-13-2024 Albumin [...] PROVIDER on 09-13-2024 Anisocytosis Ql (Bld) 1+ [facility] Lymphocytes Auto (Unsp spec) [#/Vol]Ordered By: ED PROVIDER on 09-13-2024 Lymphocytes (Bld) [#/Vol] 1.62 10*3/uL 0.83-4.51 [facility] Lymphocytes/100 WBC Auto (Un sp spec)Ordered By: ED PROVIDER on 09-13-2024 Lymphocytes/100 WBC (Bld) 29.3 % 19-41 [facility] M100.678on 09-13-2024 M100.678 SARS-CoV-2 (COVID 19) Negative INFLUENZA A Negative INFLUENZA B Negative RSV PCR Negative Normal [facility] Comment on above: Performed By: #### M 100.678 ####[facility] [address] [place], [address] MCV (mean corpuscular volume ) determinationOrdered By: ED PROVIDER on 09-13-2024 MCV (RBC) [Entitic vol] 81.6 fL 81-99 [facility] Mean corpuscular hemoglobin (MCH) determinationOrdered By: ED PROVIDER on 09-13-2024 MCH (RBC) [Entitic mass] 24.7 pg Low 27.0-32.0 [facility] Mean corpuscular hemoglobin concentration (MCHC) determinationOrdered By: ED PROVIDER on 09-13-2024 MCHC (RBC) [Mass/Vol] 30.2 g/dL Low 32-36 [facility] Mean platelet volume determi nationOrdered By: ED PROVIDER on 09-13-2024 Platelet mean volume (Bld) [Entitic vol] 8.5 fL 6.2-12.0 [facility] Monocyte percentageOrdered B y: ED PROVIDER on 09-13-2024 Monocytes/100 WBC (Bld) 14.3 % High 0-[address] [facility] Neutrophil percentageOrdered By: ED PROVIDER on 09-13-2024 Neutrophils/100 WBC (Bld) 54.9 % 47-70 [facility] No Panel InformationOrdered By: Chris Maria on 09-13-2024 Troponin T High Sensitivity 19 ng/L High <14 [facility] Nucleated red blood cell per centageOrdered By: ED PROVIDER on 09-13-2024 Nucleated RBC/100 WBC (Bld) [Ratio] 0 % 0-5 [facility] PBNPon 09-13-2024 Natriuretic peptide B (Bld) [Mass/Vol] 235 pg/mL High 0-125 [facility] Comment on above: Result Comment: NT-p roBNP results of less than 300 pg/mL effectively rules out acute congestive heart failure with 99% negative predictive value. Performed By: #### G FR, TSH, FT4, DIFF, MORPH, CMP, CBC, PBNP #### [facility] [address] [place], [place] [address] Platelet countOrdered By: ED PROVIDER on 09-13-2024 Platelets (Bld) [#/Vol] 275 10*3/uL 150-450 [facility] RBC Auto (Bld) [#/Vol]Ordere d By: ED PROVIDER on 09-13-2024 RBC (Bld) [#/Vol] 4.62 10*6/uL 4.2-5.4 [facility] Serum glucose measurement (m ass/volume)Ordered By: ED PROVIDER on 09-13-2024 Glucose [Mass/Vol] 112 mg/dL High 70-99 [facility] Serum or plasma anion gap de termination (moles/volume)Ordered By: ED PROVIDER on 09-13-2024 Anion gap [Moles/Vol] 12 mmol/L 5-15 [facility] Serum or plasma calcium usman urement (mass/volume)Ordered By: ED PROVIDER on 09-13-2024 Calcium [Mass/Vol] 9.1 mg/dL 7.6-11.0 [facility] Serum or plasma creatinine m easurement (moles/volume)Ordered By: ED PROVIDER on 09-13-2024 Creatinine [Moles/Vol] 1.0 mg/dL 0.6-1.0 [facility] Serum or plasma potassium me asurementOrdered By: ED PROVIDER on 09-13-2024 Potassium [Moles/Vol] 4.1 mmol/L 3.3-5.1 [facility] Serum or plasma sodium measu rement (moles/volume)Ordered By: ED PROVIDER on 09-13-2024 Sodium [Moles/Vol] 139 mmol/L 133-145 [facility] Serum or plasma urea nitroge n measurement (mass/volume)Ordered By: ED PROVIDER on 09-13-2024 Urea nitrogen [Mass/Vol] 8 mg/dL 4-19 [facility] TSHon 09-13-2024 TSH Qn 0.88 m[IU]/L Normal 0.36-3.74 [facility] Comment on above: Performed By: #### G FR, TSH, FT4, DIFF, MORPH, CMP, CBC, PBNP #### [facility] [address] [place], [place] [address] TSH DL <= 0.005 mIU/L QnOrde red By: Chris Maria on 09-13-2024 Thyroid Stimulating Hormone (TSH) 0.644 uIU/mL 0.300-4.200 [facility] TSH Qn 0.644 uIU/mL 0.300-4.200 [facility] Target cell detectionOrdered By: ED PROVIDER on 09-13-2024 Target cells LM Ql (Bld) 1+ [facility] Target cells LM Ql (Bld)Orde red By: ED PROVIDER on 09-13-2024 Target Cells 1+ [facility] Thyroid Stim Hormone (TSH)on 09-13-2024 TSH 0.644 uIU/mL Normal 0.300-4.200 [facility] Comment on above: Performed By: #### L 501.9520 ####[facility] [address] [place], [address] White blood cell (WBC) count Ordered By: ED PROVIDER on 09-13-2024 WBC (Bld) [#/Vol] 5.5 10*3/uL 4.4-11.0 [facility] CNOVon 09-02-2024 CNOV Office Visit (UCWSTR) KARINA FERNANDO ([id number]) 1950 F Date Time Provider Department 09/02/24 1:15 [facility] During your [facility] today, we recorded [...] AND INFLUEN (more content not included)... Normal [facility] Culture, Blood (WB)on 2023 CUB Blood cultures x2, from two different sites No growth in 5 days. Normal [facility] Comment on above: Performed By: #### M 200.1000, L503.6005 ####[facility] [address] [place], [address] 12 Lead EKGon 06-20-2024 12 Lead EKG Normal [facility] Absolute neutrophil countOrd ered By: Anh Irene on 06-20-2024 Neutrophils (Bld) [#/Vol] 4.2 10*3/uL 2.0-7.7 [facility] Basic Metabolic Profile (BMP )on 06-20-2024 BUN/CRE 5.2 RATIO Low 10-20 [facility] Comment on above: Order Comment: 'TROP ' Serial specimen #1, #2 or #3: 1 Performed By: #### L 300.8000, L100.0100, L500.2500, L501.4020 ####[facility] [address] [place], [address] CA,Total 9.3 mg/dL Normal 8.5-10.1 [facility] Comment on above: Order Comment: 'TROP ' Serial specimen #1, #2 or #3: 1 Performed By: #### L 300.8000, L100.0100, L500.2500, L501.4020 ####[facility] [address] [place], [address] Chloride [Moles/Vol] 110 mmol/L High 98-107 [facility] Comment on above: Order Comment: 'TROP ' Serial specimen #1, #2 or #3: 1 Performed By: #### L 300.8000, L100.0100, L500.2500, L501.4020 ####[facility] [address] [place], [address] CO2 [Moles/Vol] 27.0 mmol/L Normal 21.0-32.0 [facility] Comment on above: Order Comment: 'TROP ' Serial specimen #1, #2 or #3: 1 Performed By: #### L 300.8000, L100.0100, L500.2500, L501.4020 ####[facility] [address] [place], [address] Creatinine [Mass/Vol] 0.96 mg/dL Normal 0.55-1.02 [facility] Comment on above: Order Comment: 'TROP ' Serial specimen #1, #2 or #3: 1 Result Comment: The validity of the calculated GFR GFRAA in patients over70 years has not been determined. Clinical correlation isessential. Performed By: #### L 300.8000, L100.0100, L500.2500, L501.4020 ####[facility] [address] [place] [place], [address] ECRCL 51.19 ml/min Normal [facility] Comment on above: Order Comment: 'TROP ' Serial specimen #1, #2 or #3: 1 Performed By: #### L 300.8000, L100.0100, L500.2500, L501.4020 ####[facility] [address] [place], [address] EST GFR - AA 73 mL/min Normal >60 [facility] Comment on above: Order Comment: 'TROP ' Serial specimen #1, #2 or #3: 1 Result Comment: Afri can Azerbaijani GFR Calc Performed By: #### L 300.8000, L100.0100, L500.2500, L501.4020 ####[facility] [address] [place], [address] GAP 6 Normal 5-15 [facility] Comment on above: Order Comment: 'TROP ' Serial specimen #1, #2 or #3: 1 Performed By: #### L 300.8000, L100.0100, L500.2500, L501.4020 ####[facility] [address] [place], [address] GFR/1.73 sq M.predicted among non-blacks MDRD (S/P/Bld) [Vol rate/Area] 60 mL/min/{1.73_m2} Normal >60 [facility] Comment on above: Order Comment: 'TROP ' Serial specimen #1, #2 or #3: 1 Result Comment: Non- GFR Calc Performed By: #### L 300.8000, L100.0100, L500.2500, L501.4020 ####[facility] [address] [place], [address] Glucose [Mass/Vol] 105 mg/dL Normal 74-106 [facility] Comment on above: Order Comment: 'TROP ' Serial specimen #1, #2 or #3: 1 Result Comment: Fast ing Glucose result from 100 to 125 mg/dLsuggests IMPAIRED HOMEOSTASIS per A.D.A. criteria. Performed By: #### L 300.8000, L100.0100, L500.2500, L501.4020 ####[facility] [address] [place], [address] Potassium [Moles/Vol] 3.1 mmol/L Low 3.5-5.1 [facility] Comment on above: Order Comment: 'TROP ' Serial specimen #1, #2 or #3: 1 Performed By: #### L 300.8000, L100.0100, L500.2500, L501.4020 ####[facility] [address] [place], [address] Sodium [Moles/Vol] 143 mmol/L Normal 136-145 [facility] Comment on above: Order Comment: 'TROP ' Serial specimen #1, #2 or #3: 1 Performed By: #### L 300.8000, L100.0100, L500.2500, L501.4020 ####[facility] [address] [place], [address] Urea nitrogen [Mass/Vol] 5 mg/dL Low 7-18 [facility] Comment on above: Order Comment: 'TROP ' Serial specimen #1, #2 or #3: 1 Performed By: #### L 300.8000, L100.0100, L500.2500, L501.4020 ####[facility] [address] [place], [address] Basophil percentageOrdered B y: Remus Ungur on 06-20-2024 Basophils/100 WBC (Bld) 0.4 % 0-[address] [facility] Blood cultureOrdered By: Rem us Ungur on 06-20-2024 Bacteria identified Cx Nom (Bld) No growth in 5 days. [facility] Bacteria identified Cx Nom (Bld) No growth in 5 days. [facility] Blood urea nitrogen (BUN)/cr eatinine ratioOrdered By: Remus Ungur on 06-20-2024 Urea nitrogen/Creatinine [Mass ratio] 5.2 mg/mg Low 10-20 [facility] CBC W/Diff, Automatedon 12-0 Absolute Lymph 1.95 X10 3/uL Normal 0.83-4.51 [facility] Comment on above: Performed By: #### L 300.8000, L100.0100, L500.2500, L501.4020 ####[facility] [address] [place], [address] Absolute Neut 4.2 X10 3/uL Normal 2.0-7.7 [facility] Comment on above: Performed By: #### L 300.8000, L100.0100, L500.2500, L501.4020 ####[facility] [address] [place], [address] Basophils/100 WBC (Bld) 0.4 % Normal 0-[address] [facility] Comment on above: Performed By: #### L 300.8000, L100.0100, L500.2500, L501.4020 ####[facility] [address] [place], [address] Eosinophils/100 WBC (Bld) 0.1 % Normal 0-5 [facility] Comment on above: Performed By: #### L 300.8000, L100.0100, L500.2500, L501.4020 ####[facility] [address] [place], [address] Erythrocyte distribution width (RBC) [Ratio] 19.7 % High 11.6-14.6 [facility] Comment on above: Performed By: #### L 300.8000, L100.0100, L500.2500, L501.4020 ####[facility] [address] [place], [address] Hematocrit (Bld) [Volume fraction] 32.8 % Low 37-47 [facility] Comment on above: Performed By: #### L 300.8000, L100.0100, L500.2500, L501.4020 ####[facility] [address] [place], [address] Hemoglobin (Bld) [Mass/Vol] 9.2 g/dL Low 12.0-15.0 [facility] Comment on above: Performed By: #### L 300.8000, L100.0100, L500.2500, L501.4020 ####[facility] [address] [place], [address] IG% 0.400 Normal 0.0-0.9 [facility] Comment on above: Result Comment: IG% - Immature Granulocytes (promyelocytes, myelocytes andmetamyelocytes) > 1% indicates that a LEFT SHIFT is Present. Performed By: #### L 300.8000, L100.0100, L500.2500, L501.4020 ####[facility] [address] [place], [address] Lymphocytes/100 WBC (Bld) 27.8 % Normal 19-41 [facility] Comment on above: Performed By: #### L 300.8000, L100.0100, L500.2500, L501.4020 ####[facility] [address] [place], [address] MCH (RBC) [Entitic mass] 20.4 pg Low 27.0-32.0 [facility] Comment on above: Performed By: #### L 300.8000, L100.0100, L500.2500, L501.4020 ####[facility] [address] [place], [address] MCHC (RBC) [Mass/Vol] 28.0 g/dL Low 32-36 [facility] Comment on above: Performed By: #### L 300.8000, L100.0100, L500.2500, L501.4020 ####[facility] [address] [place], [address] MCV (RBC) [Entitic vol] 72.7 fL Low 81-[address] [facility] Comment on above: Performed By: #### L 300.8000, L100.0100, L500.2500, L501.4020 ####[facility] [address] [place], [address] Monocytes/100 WBC (Bld) 11.0 % High 0-[address] [facility] Comment on above: Performed By: #### L 300.8000, L100.0100, L500.2500, L501.4020 ####[facility] [address] [place], [address] Neutrophils/100 WBC (Bld) 60.3 % Normal 47-70 [facility] Comment on above: Performed By: #### L 300.8000, L100.0100, L500.2500, L501.4020 ####[facility] [address] [place], [address] Nucleated RBC (Bld) [#/Vol] 0 10*3/uL Normal 0-5 [facility] Comment on above: Performed By: #### L 300.8000, L100.0100, L500.2500, L501.4020 ####[facility] [address] [place], [address] Platelet mean volume (Bld) [Entitic vol] 8.4 fL Normal 6.2-12.0 [facility] Comment on above: Performed By: #### L 300.8000, L100.0100, L500.2500, L501.4020 ####[facility] [address] [place], [address] Platelets (Bld) [#/Vol] 332 10*3/uL Normal 150-450 [facility] Comment on above: Performed By: #### L 300.8000, L100.0100, L500.2500, L501.4020 ####[facility] [address] [place], [address] RBC (Bld) [#/Vol] 4.51 10*6/uL Normal 4.2-5.4 [facility] Comment on above: Performed By: #### L 300.8000, L100.0100, L500.2500, L501.4020 ####[facility] [address] [place], [address] RDW SD 51.4 fl High 35.1-43.9 [facility] Comment on above: Performed By: #### L 300.8000, L100.0100, L500.2500, L501.4020 ####[facility] [address] [place], [address] WBC (Bld) [#/Vol] 7.0 10*3/uL Normal 4.4-11.0 [facility] Comment on above: Performed By: #### L 300.8000, L100.0100, L500.2500, L501.4020 ####[facility] [address] [place], [address] Carbon dioxide measurementOr dered By: Anh Irene on 06-20-2024 CO2 [Moles/Vol] 27.0 mmol/L 21.0-32.0 [facility] Chest 1 View (Portable)on Chest 1 View (Portable) Normal [facility] Chloride measurementOrdered By: Anh Irene on 06-20-2024 Chloride [Moles/Vol] 110 mmol/L High 98-107 [facility] D-Dimer Quantitative (DVT/PE )on 06-20-2024 D-DIMER QUANT 0.46 FEU/ug/m Normal 0.27-0.49 [facility] Comment on above: Result Comment: NORM AL D-Dimer level (<0.50) indicates no DVT or PE. Performed By: #### L 300.8000, L100.0100, L500.2500, L501.4020 ####[facility] [address] [place], [address] D-dimer measurement for deep venous thrombosisOrdered By: Anh Irene on 06-20-2024 D-Dimer Quantitative (PE/DVT) 0.46 FEU/ug/m 0.27-0.49 [facility] Comment on above: NORMAL D-Dimer level (<0.50) indicates no DVT or PE. Emergency Department Summary on 06-20-2024 Emergency Department Summary Normal [facility] Eosinophil percentageOrdered By: [facility] on 06-20-2024 Eosinophils/100 WBC (Bld) 0.1 % 0-5 [facility] Erythrocyte distribution wid th ratioOrdered By: Anh Irene on 06-20-2024 Erythrocyte distribution width (RBC) [Ratio] 19.7 % High 11.6-14.6 [facility] Erythrocyte distribution wid th standard deviationOrdered By: Anh Irene on 06-20-2024 Erythrocyte distribution width (RBC) [Entitic vol] 51.4 fL High 35.1-43.9 [facility] Estimated glomerular filtrat ion rate (GFR) AmericanOrdered By: Anh Irene on 06-20-2024 Estimated GFR (MDRD) Amer 73 mL/min >60 [facility] Comment on above: GFR Calc Estimation of creatinine nikki aranceOrdered By: Anh Irene on 06-20-2024 Estimated Creatinine Clearance Calc 51.19 ml/min [facility] Glomerular filtration rate ( GFR) estimationOrdered By: Anh Irene on 06-20-2024 Estimated GFR (MDRD) Non-Af Amer 60 mL/min >60 [facility] Comment on above: Non- GFR Calc Glucose measurementOrdered B y: Anh Irene on 06-20-2024 Glucose [Mass/Vol] 105 mg/dL 74-106 [facility] Comment on above: Fasting Glucose resu lt from 100 to 125 mg/dL suggests IMPAIRED HOMEOSTASIS per A.D.A. criteria. Hematocrit Auto (Bld) [Volum e fraction]Ordered By: Anh Irene on 06-20-2024 Hematocrit (Bld) [Volume fraction] 32.8 % Low 37-47 [facility] Hemoglobin measurementOrdere d By: Anh Irene on 06-20-2024 Hemoglobin (Bld) [Mass/Vol] 9.2 g/dL Low 12.0-15.0 [facility] Immature granulocytes/100 WB C Auto (Bld)Ordered By: Anh Irene on 06-20-2024 Immature granulocytes/100 WBC (Bld) 0.400 % 0.0-0.9 [facility] Comment on above: IG% - Immature Granu locytes (promyelocytes, myelocytes and metamyelocytes) > 1% indicates that a LEFT SHIFT is Present. Influenza virus A and B and SARS-CoV-2 (COVID-19) and Respiratory syncytial virus RNAOrdered By: Anh Irene on 06-20-2024 SARS-CoV-2 (COVID-19) RNA MIGUE+probe Ql (Unsp spec) [facility] L501.4020on 06-20-2024 TROPONIN-I HS 7 pg/mL Normal 3.0-54.0 [facility] Comment on above: Order Comment: 'TROP ' Serial specimen #1, #2 or #3: 1 Result Comment: Moira hinds Note: New Test Units and Gender Specific Reference Ranges. For more information see Policy Stat Procedure [place] High Sensitivity Troponin (TNIH) and attachments. Performed By: #### L 300.8000, L100.0100, L500.2500, L501.4020 ####[facility] [address] [place], [place], [id number] Lactic Acidon 06-20-2024 Lactate [Moles/Vol] 2.1 mmol/L Invalid Interpretation Code 0.4-1.9 [facility] Comment on above: Order Comment: PATIE NT DISCHARGED PRIOR TO THIS ORDER REFLEXINGY Result Comment: HERMES ENT DISCHARGED PRIOR TO THIS ORDER REFLEXINGCritical Result(s) Called at: 10:07:36 06/20/2024 by:Valery Howard. Results read back by same. Performed By: #### M 200.1000, L503.6005 ####[facility] [address] [place], [address] Lymphocytes Auto (Unsp spec) [#/Vol]Ordered By: Anh Irene on 06-20-2024 Lymphocytes (Bld) [#/Vol] 1.95 10*3/uL 0.83-4.51 [facility] Lymphocytes/100 WBC Auto (Un sp spec)Ordered By: Anh Irene on 06-20-2024 Lymphocytes/100 WBC (Bld) 27.8 % 19-41 [facility] M100.678on 06-20-2024 M100.678 Pending SARS-CoV-2 (COVID 19) Negative INFLUENZA A Negative INFLUENZA B Negative RSV PCR Negative Normal [facility] Comment on above: Performed By: #### M 100.678 ####[facility] [address] [place], [address] MCV (mean corpuscular volume ) determinationOrdered By: Anh Irene on 06-20-2024 MCV (RBC) [Entitic vol] 72.7 fL Low 81-[address] [facility] Mean corpuscular hemoglobin (MCH) determinationOrdered By: Anh Irene on 06-20-2024 MCH (RBC) [Entitic mass] 20.4 pg Low 27.0-32.0 [facility] Mean corpuscular hemoglobin concentration (MCHC) determinationOrdered By: Anh Irene on 06-20-2024 MCHC (RBC) [Mass/Vol] 28.0 g/dL Low 32-36 [facility] Mean platelet volume determi nationOrdered By: Anh Irene on 06-20-2024 Platelet mean volume (Bld) [Entitic vol] 8.4 fL 6.2-12.0 [facility] Monocyte percentageOrdered B y: Anh Irene on 06-20-2024 Monocytes/100 WBC (Bld) 11.0 % High 0-[address] [facility] Neutrophil percentageOrdered By: Anh Irene on 06-20-2024 Neutrophils/100 WBC (Bld) 60.3 % 47-70 [facility] Nucleated red blood cell per centageOrdered By: Anh Irene on 06-20-2024 Nucleated RBC/100 WBC (Bld) [Ratio] 0 % 0-5 [facility] Platelet countOrdered By: Lili Alvaresbuck on 06-20-2024 Platelets (Bld) [#/Vol] 332 10*3/uL 150-450 [facility] Potassium measurementOrdered By: Anh Alvaresbuck on 06-20-2024 Potassium [Moles/Vol] 3.1 mmol/L Low 3.5-5.1 [facility] RBC Auto (Bld) [#/Vol]Ordere d By: Anh Alvaresbuck on 06-20-2024 RBC (Bld) [#/Vol] 4.51 10*6/uL 4.2-5.4 [facility] Serum anion gap measurementO rdered By: Anh Alvaresbuck on 06-20-2024 Anion gap [Moles/Vol] 6 mmol/L 5-15 [facility] Serum or plasma calcium usman urement (mass/volume)Ordered By: Anh Alvaresbuck on 06-20-2024 Calcium [Mass/Vol] 9.3 mg/dL 8.5-10.1 [facility] Serum or plasma creatinine m easurement (mass/volume)Ordered By: Anh Alvaresbuck on 06-20-2024 Creatinine [Mass/Vol] 0.96 mg/dL 0.55-1.02 [facility] Comment on above: The validity of the calculated GFR & GFRAA in patients over 70 years has not been determined. Clinical correlation is essential. Serum or plasma urea nitroge n measurement (mass/volume)Ordered By: Anh Alvaresbuck on 06-20-2024 Urea nitrogen [Mass/Vol] 5 mg/dL Low 7-18 [facility] Sodium levelOrdered By: Kaylee vigil Teto on 06-20-2024 Sodium [Moles/Vol] 143 mmol/L 136-145 [facility] Troponin IOrdered By: Anh Alvaresbuck on 06-20-2024 Troponin I High Sensitivity 7 pg/mL 3.0-54.0 [facility] Comment on above: Please Note: New Shirin t Units and Gender Specific Reference Ranges. For more information see Policy Stat Procedure [place] High Sensitivity Troponin (TNIH) and attachments. White blood cell (WBC) count Ordered By: Anh Alvaresbuck on 06-20-2024 WBC (Bld) [#/Vol] 7.0 10*3/uL 4.4-11.0 [facility] 05-31-2024 CNOV Office Visit (UCWSTR) KARINA FERNANDO ([id number]) 1950 F Date Time Provider Department 05/31/24 4:45 PM SERGIO MOHR WSTR During your visit today, we recorded the following information about you: Temperature Pulse Respiration Blood pressure 99.1 degrees 94/minute 18/minute 140/84 Weight 75.4 kg Sergio Mohr PA-C 05/31/2024 5:48 PM Signed This note was created using Mavenriter. Subjective Karina Fernando is a 73 year [...] Mother Lipid (more content not included)... Normal [facility] XR CHEST 2V FRONTAL/LATon XR CHEST [...] IMPRESSION: Mild left base atelectasis or infiltrate Drop Forger: [facility] Transcribe Date/Time: May 31 2024 5:27P Dictated by : JOSELYN VIDALES MD This examination was interpreted and the report reviewed and electronically signed by: JOSELYN VIDALES MD on May 31 2024 5:27PM EST [id number] CN Normal [facility] XR Chest PA and Lateralon IMPRESSION: Mild left base atelectasis or infiltrate Drop Forger: AMISHA Transcribe Date/Time: May 31 2024 5:27P [...] fractures. Hiatal hernia. DIVISION OF RADIOLOGY Provider, [facility] - 05/31/2024 * * *Final Report* * [...] IMPRESSION: Mild left base atelectasis or infiltrate Drop Forger: AMISHA Transcribe Date/Time: May 31 2024 5:27P Dictated by : JOSELYN VIDALES MD This examination was interpreted and the report reviewed and electronically signed by: JOSELYN VIDALES MD on May 31 2024 5:27PM [facility] Radiology Study observation (narrative) Sudeep Toney XR Chest PA and LateralOrder ed By: [facility] Provider on 05-31-2024 [facility] .Auto Diffon 02-11-2024 Basophil, Absolute 0.0 10 3/mcL Normal 0.0-0.2 [facility] ([place]) Comment on above: Performed By: #### M ALBR #### [address] [address] Basophils/100 WBC (Bld) 1.1 % Normal 0.0-2.5 [facility] ([place]) Comment on above: Performed By: #### M ALBR #### [address] [address] Eosinophil, Absolute 0.0 10 3/mcL Normal 0.0-0.4 [facility] ([place]) Comment on above: Performed By: #### M ALBR #### [address] [address] Eosinophils/100 WBC (Bld) 1.0 % Normal 0.0-7.0 [facility] ([place]) Comment on above: Performed By: #### M ALBR #### [address] [address] Lymphocyte, Absolute 1.7 10 3/mcL Normal 0.8-3.9 [facility] ([place]) Comment on above: Performed By: #### M ALBR #### [address] [address] Lymphocytes/100 WBC (Bld) 51.4 % High 10.0-50.0 [facility] ([place]) Comment on above: Performed By: #### M ALBR #### [address] [address] Monocyte, Absolute 0.4 10 3/mcL Normal 0.2-1.0 [facility] ([place]) Comment on above: Performed By: #### M ALBR #### [address] [address] Monocytes/100 WBC (Bld) 11.4 % Normal 1.7-13.0 [facility] ([place]) Comment on above: Performed By: #### M ALBR #### [address] [address] Neutrophils/100 WBC (Bld) 35.1 % Low 37.0-80.0 [facility] ([place]) Comment on above: Performed By: #### M ALBR #### [address] [address] .GFRon 02-11-2024 GFR 62 ml/min/1.73sqm Normal [facility] ([place]) Comment on above: Result Comment: GFR Population [...] ADIFF, GFR, MORPH, PBNP, MDW, CBC #### [address] [address] GFR Non- 51 ml/min/1.73sqm Normal [facility] ([place]) Comment on above: Result Comment: GFR Population [...] ADIFF, GFR, MORPH, PBNP, MDW, CBC #### [place] [id number] .MDWon 02-11-2024 Monocyte Distribution Width 15.05 Normal 0.00-20.00 [facility] ([place]) Comment on above: Result Comment: For ED adult patients suspected of sepsis, MDW<=20.0 does not rule out sepsis or risk of sepsis Performed By: #### A MED, TROPHS, BMP, ADIFF, GFR, MORPH, PBNP, MDW, CBC #### [place] [address] .Morphon 02-11-2024 Platelet Estimate Normal Normal [facility]) Comment on above: Performed By: #### A MED, TROPHS, BMP, ADIFF, GFR, MORPH, PBNP, MDW, CBC #### [place] [address] RBC morphology finding Nom (Bld) Normal Normal [facility]) Comment on above: Performed By: #### A MED, TROPHS, BMP, ADIFF, GFR, MORPH, PBNP, MDW, CBC #### [place] [address] .NEUABSon 02-11-2024 Neutrophil, Absolute 1.2 10 3/mcL Low 2.9-6.2 [facility]) Comment on above: Performed By: #### M ALBR #### [place] [address] BMPon 02-11-2024 BUN/Creatinine Ratio 10 ratio Normal 7-27 Count includes the [facility]) Comment on above: Performed By: #### A MED, TROPHS, BMP, ADIFF, GFR, MORPH, PBNP, MDW, CBC #### [address] [address] Calcium [Mass/Vol] 9.4 mg/dL Normal 8.4-10.2 [facility] ([place]) Comment on above: Performed By: #### A MED, TROPHS, BMP, ADIFF, GFR, MORPH, PBNP, MDW, CBC #### [address] [address] Chloride [Moles/Vol] 104 mmol/L Normal 98-107 [facility] ([place]) Comment on above: Performed By: #### A MED, TROPHS, BMP, ADIFF, GFR, MORPH, PBNP, MDW, CBC #### [place] [address] CO2 [Moles/Vol] 32 mmol/L High 23-31 [facility] ([place]) Comment on above: Performed By: #### A MED, TROPHS, BMP, ADIFF, GFR, MORPH, PBNP, MDW, CBC #### [address] [address] Creatinine [Mass/Vol] 1.06 mg/dL High 0.55-1.02 [facility] ([place]) Comment on above: Performed By: #### A MED, TROPHS, BMP, ADIFF, GFR, MORPH, PBNP, MDW, CBC #### [address] [address] Electrolyte Balance 6.0 mEq/L Normal 4.0-15.0 [facility] ([place]) Comment on above: Performed By: #### A MED, TROPHS, BMP, ADIFF, GFR, MORPH, PBNP, MDW, CBC #### [address] [address] Glucose [Mass/Vol] 105 mg/dL Normal 83-110 [facility] ([place]) Comment on above: Performed By: #### A MED, TROPHS, BMP, ADIFF, GFR, MORPH, PBNP, MDW, CBC #### [address] [address] Potassium [Moles/Vol] 3.7 mmol/L Normal 3.5-5.1 [facility] ([place]) Comment on above: Performed By: #### A MED, TROPHS, BMP, ADIFF, GFR, MORPH, PBNP, MDW, CBC #### [address] [address] Sodium [Moles/Vol] 142 mmol/L Normal 136-145 [facility] ([place]) Comment on above: Performed By: #### A MED, TROPHS, BMP, ADIFF, GFR, MORPH, PBNP, MDW, CBC #### [place] [id number] Urea nitrogen [Mass/Vol] 11 mg/dL Normal 7-18 [facility] ([place]) Comment on above: Performed By: #### A MED, TROPHS, BMP, ADIFF, GFR, MORPH, PBNP, MDW, CBC #### [address] [address] CBCon 02-11-2024 Erythrocyte distribution width (RBC) [Ratio] 18.4 % High 11.5-14.5 [facility] ([place]) Comment on above: Performed By: #### A MED, TROPHS, BMP, ADIFF, GFR, MORPH, PBNP, MDW, CBC #### [address] [address] Hematocrit (Bld) [Volume fraction] 31.6 % Low 37.0-47.0 [facility] ([place]) Comment on above: Performed By: #### A MED, TROPHS, BMP, ADIFF, GFR, MORPH, PBNP, MDW, CBC #### [address] [address] Hgb 9.8 G/dL Low 12.0-16.0 [facility] ([place]) Comment on above: Performed By: #### A MED, TROPHS, BMP, ADIFF, GFR, MORPH, PBNP, MDW, CBC #### [address] [place] [address] MCH (RBC) [Entitic mass] 22.6 pg Low 27.0-31.2 [facility] ([place]) Comment on above: Performed By: #### A MED, TROPHS, BMP, ADIFF, GFR, MORPH, PBNP, MDW, CBC #### [address] [address] MCHC 31.1 G/dL Low 33.0-37.0 [facility] ([place]) Comment on above: Performed By: #### A MED, TROPHS, BMP, ADIFF, GFR, MORPH, PBNP, MDW, CBC #### [address] [address] MCV (RBC) [Entitic vol] 72.5 fL Low 80.0-94.0 [facility] ([place]) Comment on above: Performed By: #### A MED, TROPHS, BMP, ADIFF, GFR, MORPH, PBNP, MDW, CBC #### [address] [address] Platelet 310 10 3/mcL Normal 130-400 [facility] ([place]) Comment on above: Performed By: #### A MED, TROPHS, BMP, ADIFF, GFR, MORPH, PBNP, MDW, CBC #### [address] [address] Platelet mean volume (Bld) [Entitic vol] 6.5 fL Low 7.4-10.4 [facility] ([place]) Comment on above: Performed By: #### A MDE, TROPHS, BMP, ADIFF, GFR, MORPH, PBNP, MDW, CBC #### [address] [address] RBC 4.36 10 6/mcL Normal 4.20-5.40 [facility] ([place]) Comment on above: Performed By: #### A MED, TROPHS, BMP, ADIFF, GFR, MORPH, PBNP, MDW, CBC #### [address] [address] WBC 3.3 10 3/mcL Low 4.6-10.8 [facility] ([place]) Comment on above: Performed By: #### A MED, TROPHS, BMP, ADIFF, GFR, MORPH, PBNP, MDW, CBC #### [place] [id number] [place], [place] [address] LABORATORYOrdered By: SYSTEM SYSTEM on 02-11-2024 Basophil, [...] ng/L Male: 0-76 ng/L Testing performed on [employer] using a homogeneous sandwich chemiluminescent immunoassay based on [employer] technology. Urea nitrogen [Mass/Vol] 11 mg/dL Normal 7 - 18 mg/dL AO ADM SS Urea nitrogen/Creatinine [Mass ratio] 10 ratio Normal 7 - 27 ratio AO ADM SS WBC (Bld) [#/Vol] 3.3 103/mcL Low 4.6 - 10.8 10^3/mcL AO Workflow SS PBNPon 02-11-2024 Natriuretic peptide B (Bld) [Mass/Vol] 86 pg/mL Normal 0-125 [facility] ([place]) Comment on above: Result Comment: NT-p roBNP results of less than 300 pg/mL effectively rules out acute congestive heart failure with 99% negative predictive value. Performed By: #### A MED, TROPHS, BMP, ADIFF, GFR, MORPH, PBSAMUEL, MDW, CBC #### [address] [address] TROPHSon 02-11-2024 High Sensitivity Troponin I 6 ng/L Normal 0-51 [facility] [facility] ([place]) Comment on above: Result Comment: High Sensitive Troponin I Reference Ranges: Female: 0-51 ng/L Male: 0-76 ng/L Testing performed on [employer] using a homogeneous sandwich chemiluminescent immunoassay based on [employer] technology. Performed By: #### A MED, TROPHS, BMP, ADIFF, GFR, MORPH, PBSAMUEL, MDW, CBC #### [address] [address] XR CHEST 1 VIEWon 02-11-2024 XR CHEST [...] 02/11/2024 7:17:20 AM Ordering Provider: NILTON Botello [facility] ([place]) [place] MAMMOGRAM SCREENING BILAT ERAL W/TOMOon 11-26-2023 MA MAMMOGRAM SCREENING BILATERAL W/AVINASH ORIGINAL FROM: [address] [address] PROCEDURE FOR: KARINA FERNANDO [address] [place] [address] Home: PID#: [id number] Exam#: [id number] : 1950 Age: 72 TO: TU HECTOR DO [address] [facility] [address] [place], [place] [address] Fax: NO FAX EXAMINATION: SCREENING DIGITAL BILATERAL [...] Continued screening with annual mammograms is recommended. Tyrrussell zick risk calculations, generated with the history [...] addition to annual mammographic screening per the [employer]. BIRADS: MAMMOGRAM BI-RADS: 2: Benign finding RECALL: 1 year screening RECALL TYPE: mammo LETTER SENT: Normal BI-RADS 1 and 2 Interpreted by: Jaswinder Mei MD Preliminary Report By: Jaswinder Mei MD Electronically signed By Jaswinder Mei MD Dictated Date: 11/26/2023 10:58:30 AM Prelim Date: 11/26/2023 11:04:22 AM Sign Date: 11/26/2023 11:04:22 AM Ordering Provider: TU HECTOR Locomotive Firer: ANNAMARIA MUSE RT(R)(M)(CT) letter sent: Normal BI-RADS 1 and 2 Mammogram BI-RADS: 2 Benign Normal [facility] ([place]) LABORATORYOrdered By: Leah Bunch on 09-29-2023 Albumin DL <= 20 mg/L (U) [Mass/Vol] 190 mcg/dL Invalid Interpretation Code AO ADM SS Albumin/Creatinine DL <= 20 mg/L (U) [Mass ratio] 6 mcg/mg Normal 0 - 30 mcg/mg AO ADM SS Creatinine (U) [Mass/Vol] 33.5 mg/dL Normal 28.0 - 117.0 mg/dL AO ADM SS MALBRon 09-29-2023 U Creatinine 33.5 mg/dL Normal 28.0-117.0 [facility] ([place] Comment on above: Performed By: #### M ALBR #### [address] [address] U Microalb 190 mcg/dL Normal [facility] ([place] Comment on above: Performed By: #### M ALBR #### [address] [address] U Ratio Alb/Cre 6 mcg/mg Normal 0-30 [facility] ([place] Comment on above: Performed By: #### M ALBR #### [address] [address] MALBRon 03-10-2023 U Creatinine 58.1 mg/dL Normal 28.0-117.0 [facility] ([place] Comment on above: Performed By: #### M ALBR #### [address] [address] U Microalb 389 mcg/dL Normal [facility] ([place] Comment on above: Performed By: #### M ALBR #### [facility] [address] [place] [address] U Ratio Alb/Cre 7 mcg/mg Normal 0-30 [facility] ([place] Comment on above: Performed By: #### M ALBR #### [address] [address] LABORATORYOrdered By: Leah Bunch on 03-09-2023 Albumin [...] and Lateralon IMPRESSION: No acute radiographic abnormality. Drop Forger: [facility] Transcribe Date/Time: Jan 14 2021 10:21A Dictated by : JOSELYN VIDALES MD This examination was interpreted and the report reviewed and electronically signed by: JOSELYN VIDALES MD on Jan 14 2021 10:22AM [facility] DIVISION OF RADIOLOGY * * *Final Report* [...] left rib fractures. DIVISION OF RADIOLOGY Provider, [facility] [place] - 01/14/2021 * * *Final Report* * [...] fractures. IMPRESSION IMPRESSION: No acute radiographic abnormality. Drop Forger: AMISHA Transcribe Date/Time: Jan 14 2021 10:21A Dictated by : JOSELYN VIDALES MD This examination was interpreted and the report reviewed and electronically signed by: JOSELYN VIDALES MD on Jan 14 2021 10:22AM [facility] Radiology Study observation (narrative) [facility] XR Chest PA and LateralOrder ed By: [facility] Provider on 01-14-2021 [facility] XR Chest PA and Lateralon IMPRESSION: 1. No radiographic evidence of acute cardiopulmonary process. 2. Moderately large hiatal hernia. Drop Forger: [facility] Transcribe Date/Time: Dec 17 2020 2:23P Dictated by : LALI JAIN MD This examination was interpreted and the report reviewed and electronically signed by: LALI JAIN MD on Dec 17 2020 2:24PM [facility] DIVISION OF RADIOLOGY * * *Final Report* [...] rib fracture deformities. DIVISION OF RADIOLOGY Provider, [facility] [place] - 12/17/2020 * * *Final Report* * [...] cardiopulmonary process. 2. Moderately large hiatal hernia. Drop Forger: [facility] Transcribe Date/Time: Dec 17 2020 2:23P Dictated by : LALI JAIN MD This examination was interpreted and the report reviewed and electronically signed by: LALI JAIN MD on Dec 17 2020 2:24PM EST [facility] Radiology Study observation (narrative) Sudeep rodney [facility] XR Chest PA and LateralOrder ed By: [facility] Provider on 12-17-2020 [facility] Vital Signs Date Time Vital Sign Value Performing Clinician Facility 01-28-2025 22:17-0400 Body temperature 98.1 [degF] Dr. Tu Hector DO Work Phone: [facility] 01-28-2025 22:17-0400 Diastolic blood pressure 75 mm[Hg] Dr. Tu Hector DO Work Phone: [facility] 01-28-2025 22:17-0400 Heart rate 97 /min Dr. Tu Hector DO Work Phone: [facility] 01-28-2025 22:17-0400 Respiratory rate 16 /min Dr. Tu Hector DO Work Phone: [facility] 01-28-2025 22:17-0400 SaO2% (BldA) [Mass fraction] 98 % Dr. Tu Hector DO Work Phone: [facility] 01-28-2025 22:17-0400 Systolic blood pressure 120 mm[Hg] Dr. Tu Hector DO Work Phone: [facility] 01-28-2025 19:00-0400 Inhaled oxygen flow rate 3 L/min Dr. Tu Hector DO Work Phone: [facility] 01-28-2025 17:49-0400 Body mass index (BMI) [Ratio] 27.6 kg/m2 Dr. Tu Hetcor DO Work Phone: [facility] 01-28-2025 17:49-0400 Body weight 70.[address] Tu Hector DO Work Phone: [facility] 01-28-2025 17:44-0400 Body height 160.[address] Tu Hector DO Work Phone: [facility] 01-23-2025 13:07-0400 Body temperature 96.8 [degF] Dr. Tu Hector DO Work Phone: [facility] 01-23-2025 13:07-0400 Diastolic blood pressure 75 mm[Hg] Dr. Tu Hector DO Work Phone: [facility] 01-23-2025 13:07-0400 Heart rate 81 /min Dr. Tu Hector DO Work Phone: [facility] 01-23-2025 13:07-0400 Respiratory rate 16 /min Dr. Tu Hector DO Work Phone: [facility] 01-23-2025 13:07-0400 SaO2% (BldA) [Mass fraction] 100 % Dr. Tu Hector DO Work Phone: [facility] 01-23-2025 13:07-0400 Systolic blood pressure 118 mm[Hg] Dr. Tu Hector DO Work Phone: [facility] 01-23-2025 10:05-0400 Body height 160.[address] Tu Hector DO Work Phone: [facility] 01-23-2025 10:05-0400 Body mass index (BMI) [Ratio] 27.8 kg/m2 Dr. Tu Hector DO Work Phone: [facility] 01-23-2025 10:05-0400 Body temperature 97.1 [degF] Dr. Tu Hector DO Work Phone: [facility] 01-23-2025 10:05-0400 Body weight 71.[address] Tu Hector DO Work Phone: [facility] 01-23-2025 10:05-0400 Diastolic blood pressure 73 mm[Hg] Dr. Tu Hector DO Work Phone: [facility] 01-23-2025 10:05-0400 Heart rate 91 /min Dr. Tu Hector DO Work Phone: [facility] 01-23-2025 10:05-0400 Respiratory rate 15 /min Dr. Tu Hector DO Work Phone: [facility] 01-23-2025 10:05-0400 SaO2% (BldA) [Mass fraction] 93 % Dr. Tu Hector DO Work Phone: [facility] 01-23-2025 10:05-0400 Systolic blood pressure 114 mm[Hg] Dr. Tu Hector DO Work Phone: [facility] 01-04-2025 14:42-0400 Body temperature 96.7 [degF] Dr. Tu Hector DO Work Phone: [facility] 01-04-2025 14:42-0400 Diastolic blood pressure 71 mm[Hg] Dr. Tu Hector DO Work Phone: [facility] 01-04-2025 14:42-0400 Heart rate 94 /min Dr. Tu Hector DO Work Phone: [facility] 01-04-2025 14:42-0400 Respiratory rate 16 /min Dr. Tu Hector DO Work Phone: [facility] 01-04-2025 14:42-0400 Systolic blood pressure 119 mm[Hg] Dr. Tu Hector DO Work Phone: [facility] 01-04-2025 13:01-0400 Inhaled oxygen flow rate 3 L/min Dr. Tu Hector DO Work Phone: [facility] 01-04-2025 13:01-0400 SaO2% (BldA) [Mass fraction] 99 % Dr. Tu Hector DO Work Phone: [facility] 01-02-2025 09:55-0400 Body height 160.[address] Tu Hector DO Work Phone: [facility] 01-02-2025 09:55-0400 Body mass index (BMI) [Ratio] 27.4 kg/m2 Dr. Tu Hector DO Work Phone: [facility] 01-02-2025 09:55-0400 Body temperature 97.6 [degF] Dr. Tu Hector DO Work Phone: [facility] 01-02-2025 09:55-0400 Body weight 70.[address] Tu Hector DO Work Phone: [facility] 01-02-2025 09:55-0400 Diastolic blood pressure 77 mm[Hg] Dr. Tu Hector DO Work Phone: [facility] 01-02-2025 09:55-0400 Heart rate 102 /min Dr. Tu Hector DO Work Phone: [facility] 01-02-2025 09:55-0400 Inhaled oxygen flow rate 3 L/min Dr. Tu Hector DO Work Phone: [facility] 01-02-2025 09:55-0400 Respiratory rate 14 /min Dr. Tu Hector DO Work Phone: [facility] 01-02-2025 09:55-0400 SaO2% (BldA) [Mass fraction] 92 % Dr. Tu Hector DO Work Phone: [facility] 01-02-2025 09:55-0400 Systolic blood pressure 114 mm[Hg] Dr. Tu Hector DO Work Phone: [facility] 12-14-2024 15:04-0400 Body temperature 97.1 [degF] Dr. Tu Hector DO Work Phone: [facility] 12-14-2024 15:04-0400 Diastolic blood pressure 79 mm[Hg] Dr. Tu Hector DO Work Phone: [facility] 12-14-2024 15:04-0400 Heart rate 82 /min Dr. Tu Hector DO Work Phone: [facility] 12-14-2024 15:04-0400 Respiratory rate 16 /min Dr. Tu Hector DO Work Phone: [facility] 12-14-2024 15:04-0400 SaO2% (BldA) [Mass fraction] 100 % Dr. Tu Hector DO Work Phone: [facility] 12-14-2024 15:04-0400 Systolic blood pressure 121 mm[Hg] Dr. Tu Hector DO Work Phone: [facility] 12-14-2024 13:06-0400 Inhaled oxygen flow rate 3 L/min Dr. Tu Hector DO Work Phone: [facility] 12-12-2024 09:06-0400 Body height 160.[address] Tu Hector DO Work Phone: [facility] 12-12-2024 09:06-0400 Body mass index (BMI) [Ratio] 27.8 kg/m2 Dr. Tu Hector DO Work Phone: [facility] 12-12-2024 09:06-0400 Body temperature 97.9 [degF] Dr. Tu Hector DO Work Phone: [facility] 12-12-2024 09:06-0400 Body weight 71.[address] Tu Hector DO Work Phone: [facility] 12-12-2024 09:06-0400 Diastolic blood pressure 70 mm[Hg] Dr. Tu Hector DO Work Phone: [facility] 12-12-2024 09:06-0400 Heart rate 82 /min Dr. Tu Hector DO Work Phone: [facility] 12-12-2024 09:06-0400 Inhaled oxygen flow rate 3 L/min Dr. Tu Hector DO Work Phone: [facility] 12-12-2024 09:06-0400 Respiratory rate 15 /min Dr. Tu Hector DO Work Phone: [facility] 12-12-2024 09:06-0400 SaO2% (BldA) [Mass fraction] 94 % Dr. Tu Hector DO Work Phone: [facility] 12-12-2024 09:06-0400 Systolic blood pressure 122 mm[Hg] Dr. Tu Hector DO Work Phone: [facility] 11-24-2024 16:15-0400 Diastolic Blood Pressure Non-Invasive 68 mm[Hg] ENID FORMAN MD [facility] 11-24-2024 16:15-0400 Heart rate 86 /min ENID FORMAN MD [facility] 11-24-2024 16:15-0400 Reason For Taking VItal Signs ENID FORMAN MD [facility] 11-24-2024 16:15-0400 Respiratory rate 20 /min ENID FORMAN MD [facility] 11-24-2024 16:15-0400 Systolic Blood Pressure Non-Invasive 168 mm[Hg] ENID FORMAN MD [facility] 11-24-2024 13:54-0400 Body temperature 98.42 [degF] ENID FORMAN MD [address] [place] [address] 11-24-2024 13:54-0400 Body weight 73.4 kg ENID FORMAN MD [address] [place] [address] 11-24-2024 13:54-0400 Diastolic Blood Pressure Non-Invasive 62 mm[Hg] ENID FORMAN MD [address] [place] [address] 11-24-2024 13:54-0400 Heart rate 89 /min EIND FORMAN MD [address] [place] [address] 11-24-2024 13:54-0400 Respiratory rate 20 /min ENID FORMAN MD [address] [place] [address] 11-24-2024 13:54-0400 Systolic Blood Pressure Non-Invasive 174 mm[Hg] ENID FORMAN MD [facility] 11-22-2024 13:03-0400 Body temperature 96.6 [degF] Dr. Tu Hector DO Work Phone: [facility] 11-22-2024 13:03-0400 Diastolic blood pressure 54 mm[Hg] Dr. Tu Hector DO Work Phone: [facility] 11-22-2024 13:03-0400 Heart rate 69 /min Dr. Tu Hector DO Work Phone: [facility] 11-22-2024 13:03-0400 Inhaled oxygen flow rate 3 L/min Dr. Tu Hector DO Work Phone: [facility] 11-22-2024 13:03-0400 Respiratory rate 16 /min Dr. Tu Hector DO Work Phone: [facility] 11-22-2024 13:03-0400 SaO2% (BldA) [Mass fraction] 96 % Dr. Tu Hector DO Work Phone: [facility] 11-22-2024 13:03-0400 Systolic blood pressure 110 mm[Hg] Dr. Tu Hector DO Work Phone: [facility] 11-21-2024 08:46-0400 Body mass index (BMI) [Ratio] 28.3 kg/m2 Dr. Tu Hector DO Work Phone: [facility] 11-21-2024 08:46-0400 Body temperature 97.9 [degF] Dr. Tu Hector DO Work Phone: [facility] 11-21-2024 08:46-0400 Body weight 72.[address] Tu Hector DO Work Phone: [facility] 11-21-2024 08:46-0400 Diastolic blood pressure 75 mm[Hg] Dr. Tu Hector DO Work Phone: [facility] 11-21-2024 08:46-0400 Heart rate 78 /min Dr. Tu Hector DO Work Phone: [facility] 11-21-2024 08:46-0400 Inhaled oxygen flow rate 3 L/min Dr. Tu Hector DO Work Phone: [facility] 11-21-2024 08:46-0400 Respiratory rate 14 /min Dr. Tu Hector DO Work Phone: [facility] 11-21-2024 08:46-0400 SaO2% (BldA) [Mass fraction] 91 % Dr. Tu Hector DO Work Phone: [facility] 11-21-2024 08:46-0400 Systolic blood pressure 118 mm[Hg] Dr. Tu Hector DO Work Phone: [facility] 11-17-2024 11:30-0400 Body mass index (BMI) [Ratio] 27.6 kg/m2 Dr. Tu Hector DO Work Phone: [facility] 11-17-2024 11:30-0400 Body weight 70.[address] Tu Hector DO Work Phone: [facility] 11-17-2024 11:30-0400 Diastolic blood pressure 63 mm[Hg] Dr. Tu Hectro DO Work Phone: [facility] 11-17-2024 11:30-0400 Heart rate 82 /min Dr. Tu Hector DO Work Phone: [facility] 11-17-2024 11:30-0400 Inhaled oxygen flow rate 3 L/min Dr. Tu Hector DO Work Phone: [facility] 11-17-2024 11:30-0400 Respiratory rate 18 /min Dr. Tu Hector DO Work Phone: [facility] 11-17-2024 11:30-0400 SaO2% (BldA) [Mass fraction] 91 % Dr. Tu Hector DO Work Phone: [facility] 11-17-2024 11:30-0400 Systolic blood pressure 99 mm[Hg] Dr. Tu Hector DO Work Phone: [facility] 11-16-2024 14:40-0400 Body temperature 97.1 [degF] Dr. Tu Hector DO Work Phone: [facility] 11-16-2024 14:40-0400 Diastolic blood pressure 72 mm[Hg] Dr. Tu Hector DO Work Phone: [facility] 11-16-2024 14:40-0400 Heart rate 84 /min Dr. Tu Hector DO Work Phone: [facility] 11-16-2024 14:40-0400 Respiratory rate 16 /min Dr. Tu Hector DO Work Phone: [facility] 11-16-2024 14:40-0400 SaO2% (BldA) [Mass fraction] 96 % Dr. Tu Hector DO Work Phone: [facility] 11-16-2024 14:40-0400 Systolic blood pressure 100 mm[Hg] Dr. Tu Hector DO Work Phone: [facility] 11-16-2024 14:35-0400 Inhaled oxygen flow rate 3 L/min Dr. Tu Hector DO Work Phone: [facility] 11-16-2024 12:05-0400 Body mass index (BMI) [Ratio] 27.7 kg/m2 Dr. Tu Hector DO Work Phone: [facility] 11-16-2024 12:05-0400 Body weight [address] Tu Hector DO Work Phone: [facility] 11-09-2024 09:09-0400 Body mass index (BMI) [Ratio] 28.3 kg/m2 Dr. Tu Hector DO Work Phone: [facility] 11-09-2024 09:09-0400 Body temperature 98.1 [degF] Dr. Tu Hector DO Work Phone: [facility] 11-09-2024 09:09-0400 Body weight 72.[address] Tu Hector DO Work Phone: [facility] 11-09-2024 09:09-0400 Diastolic blood pressure 74 mm[Hg] Dr. Tu Hector DO Work Phone: [facility] 11-09-2024 09:09-0400 Heart rate 81 /min Dr. Tu Hector DO Work Phone: [facility] 11-09-2024 09:09-0400 Respiratory rate 18 /min Dr. Tu Hector DO Work Phone: [facility] 11-09-2024 09:09-0400 SaO2% (BldA) [Mass fraction] 97 % Dr. Tu Hector DO Work Phone: [facility] 11-09-2024 09:09-0400 Systolic blood pressure 116 mm[Hg] Dr. Tu Hector DO Work Phone: [facility] 11-02-2024 09:51-0400 Body mass index (BMI) [Ratio] 30.5 kg/m2 Dr. Tu Hector DO Work Phone: [facility] 10-31-2024 08:18-0400 Body mass index (BMI) [Ratio] 29.4 kg/m2 Dr. Tu Hector DO Work Phone: [facility] 10-31-2024 08:18-0400 Body temperature 98.3 [degF] Dr. Tu Hector DO Work Phone: [facility] 10-31-2024 08:18-0400 Body weight 75.[address] Tu Hector DO Work Phone: [facility] 10-31-2024 08:18-0400 Diastolic blood pressure 81 mm[Hg] Dr. Tu Hector DO Work Phone: [facility] 10-31-2024 08:18-0400 Heart rate 96 /min Dr. Tu Hector DO Work Phone: [facility] 10-31-2024 08:18-0400 Respiratory rate 16 /min Dr. Tu Hector DO Work Phone: [facility] 10-31-2024 08:18-0400 SaO2% (BldA) [Mass fraction] 98 % Dr. Tu Hector DO Work Phone: [facility] 10-31-2024 08:18-0400 Systolic blood pressure 125 mm[Hg] Dr. Tu Hector DO Work Phone: [facility] 10-27-2024 12:45-0400 Body mass index (BMI) [Ratio] 18.9 kg/m2 Dr. Tu Hector DO Work Phone: [facility] 10-27-2024 12:45-0400 Body temperature 97.6 [degF] Dr. Tu Hector DO Work Phone: [facility] 10-27-2024 12:45-0400 Body weight 48.[address] Tu Hector DO Work Phone: [facility] 10-27-2024 12:45-0400 Diastolic blood pressure 70 mm[Hg] Dr. Tu Hector DO Work Phone: [facility] 10-27-2024 12:45-0400 Heart rate 100 /min Dr. Tu Hector DO Work Phone: [facility] 10-27-2024 12:45-0400 Inhaled oxygen flow rate 2.5 L/min Dr. Tu Hector DO Work Phone: [facility] 10-27-2024 12:45-0400 Respiratory rate 18 /min Dr. Tu Hector DO Work Phone: [facility] 10-27-2024 12:45-0400 SaO2% (BldA) [Mass fraction] 96 % Dr. Tu Hector DO Work Phone: [facility] 10-27-2024 12:45-0400 Systolic blood pressure 107 mm[Hg] Dr. Tu Hector DO Work Phone: [facility] 10-26-2024 16:17-0400 Body mass index (BMI) [Ratio] 29.8 kg/m2 Dr. Tu Hector DO Work Phone: [facility] 10-26-2024 16:17-0400 Body temperature 98.5 [degF] Dr. Tu Hector DO Work Phone: [facility] 10-26-2024 16:17-0400 Body weight 76.[address] Tu Hector DO Work Phone: [facility] 10-26-2024 16:17-0400 Diastolic blood pressure 76 mm[Hg] Dr. Tu Hector DO Work Phone: [facility] 10-26-2024 16:17-0400 Heart rate 115 /min Dr. Tu Hector DO Work Phone: [facility] 10-26-2024 16:17-0400 Respiratory rate 18 /min Dr. Tu Hector DO Work Phone: [facility] 10-26-2024 16:17-0400 SaO2% (BldA) [Mass fraction] 98 % Dr. Tu Hector DO Work Phone: [facility] 10-26-2024 16:17-0400 Systolic blood pressure 116 mm[Hg] Dr. Tu Hector DO Work Phone: [facility] 10-26-2024 10:37-0400 Body height 160 cm Joselyn Tucker MD Work Phone: [facility] 10-26-2024 10:37-0400 Body mass index (BMI) [Ratio] 29.58 kg/m2 Joselyn Tucker MD Work Phone: [facility] 10-26-2024 10:37-0400 Body weight 75.75 kg Joselyn Tucker MD Work Phone: [facility] 10-26-2024 10:37-0400 Diastolic blood pressure 80 mm[Hg] Joselyn Tucker MD Work Phone: [facility] 10-26-2024 10:37-0400 Heart rate 98 /min Joselyn Tucker MD Work Phone: [facility] 10-26-2024 10:37-0400 Systolic blood pressure 120 mm[Hg] Joselyn Tucker MD Work Phone: [facility] 10-25-2024 15:11-0400 Body mass index (BMI) [Ratio] 29.7 kg/m2 Dr. Tu Hector DO Work Phone: [facility] 10-25-2024 15:11-0400 Body temperature 98.5 [degF] Dr. Tu Hector DO Work Phone: [facility] 10-25-2024 15:11-0400 Body weight [address] Tu Hector DO Work Phone: [facility] 10-25-2024 15:11-0400 Diastolic blood pressure 74 mm[Hg] Dr. Tu Hector DO Work Phone: [facility] 10-25-2024 15:11-0400 Heart rate 89 /min Dr. Tu Hector DO Work Phone: [facility] 10-25-2024 15:11-0400 Inhaled oxygen flow rate 2.5 L/min Dr. Tu Hector DO Work Phone: [facility] 10-25-2024 15:11-0400 Respiratory rate 18 /min Dr. Tu Hector DO Work Phone: [facility] 10-25-2024 15:11-0400 SaO2% (BldA) [Mass fraction] 97 % Dr. Tu Hector DO Work Phone: [facility] 10-25-2024 15:11-0400 Systolic blood pressure 114 mm[Hg] Dr. Tu Hector DO Work Phone: [facility] 10-21-2024 16:39-0400 Body temperature 97.9 [degF] Dr. Tu Hector DO Work Phone: [facility] 10-21-2024 16:39-0400 Diastolic blood pressure 74 mm[Hg] Dr. Tu Hector DO Work Phone: [facility] 10-21-2024 16:39-0400 Heart rate 80 /min Dr. uT Hector DO Work Phone: [facility] 10-21-2024 16:39-0400 Respiratory rate 16 /min Dr. Tu Hector DO Work Phone: [facility] 10-21-2024 16:39-0400 SaO2% (BldA) [Mass fraction] 98 % Dr. Tu Hector DO Work Phone: [facility] 10-21-2024 16:39-0400 Systolic blood pressure 111 mm[Hg] Dr. Tu Hector DO Work Phone: [facility] 10-21-2024 15:43-0400 Inhaled oxygen flow rate 2 L/min Dr. Tu Hector DO Work Phone: [facility] 10-21-2024 15:05-0400 Body height 160.[address] Tu Hector DO Work Phone: [facility] 10-21-2024 15:05-0400 Body mass index (BMI) [Ratio] 29.2 kg/m2 Dr. Tu Hector DO Work Phone: [facility] 10-21-2024 15:05-0400 Body weight 74.[address] Tu Hector DO Work Phone: [facility] 10-17-2024 11:07-0400 Body height 160 cm Rachel Johnson DO Work Phone: [facility] 10-17-2024 11:07-0400 Body mass index (BMI) [Ratio] 29.23 kg/m2 Rachel Johnson DO Work Phone: [facility] 10-17-2024 11:07-0400 Body temperature 97.5 [degF] Rachel Johnson DO Work Phone: [facility] 10-17-2024 11:07-0400 Body weight 74.84 kg Rachel Lahco-Anh DO Work Phone: [facility] 10-17-2024 11:07-0400 Diastolic blood pressure 64 mm[Hg] Rachel Monk-Anh DO Work Phone: [facility] 10-17-2024 11:07-0400 Heart rate 81 /min Rachel Monk-Anh DO Work Phone: [facility] 10-17-2024 11:07-0400 Respiratory rate 18 /min Rachel Durantodgrass DO Work Phone: [facility] 10-17-2024 11:07-0400 SaO2% (BldA) [Mass fraction] 94 % Rachel Monk-Anh DO Work Phone: [facility] Comment on above: 10-17-2024 11:07-0400 Systolic blood pressure 122 mm[Hg] Rachel MillerAnh DO Work Phone: [facility] 10-09-2024 16:30-0400 Diastolic blood pressure 72 mm[Hg] Cain Mejia MD Work Phone: [facility] 10-09-2024 16:30-0400 Heart rate 90 /min Cain Mejia MD Work Phone: [facility] 10-09-2024 16:30-0400 Respiratory rate 22 /min Cain Mejia MD Work Phone: [facility] 10-09-2024 16:30-0400 SaO2% (BldA) [Mass fraction] 92 % Cain Mejia MD Work Phone: [facility] 10-09-2024 16:30-0400 Systolic blood pressure 112 mm[Hg] Cain Mejia MD Work Phone: [facility] 10-09-2024 15:45-0400 Body temperature 97.59 [degF] Cain Mejia MD Work Phone: [facility] 10-09-2024 13:08-0400 Body height 160 cm Cain Mejia MD Work Phone: [facility] 10-09-2024 13:08-0400 Body mass index (BMI) [Ratio] 28.87 kg/m2 Cain Mejia MD Work Phone: [facility] 10-09-2024 13:08-0400 Body weight 73.94 kg Cain Mejia MD Work Phone: [facility] 10-06-2024 13:06-0400 Body temperature 98.8 [degF] Guanakito Moya MD Work Phone: [facility] 10-06-2024 13:06-0400 Diastolic blood pressure 75 mm[Hg] Guanakito Moya MD Work Phone: [facility] 10-06-2024 13:06-0400 Heart rate 122 /min Guanakito Moya MD Work Phone: [facility] 10-06-2024 13:06-0400 Respiratory rate 18 /min Guanakito Moya MD Work Phone: [facility] 10-06-2024 13:06-0400 SaO2% (BldA) [Mass fraction] 93 % Guanakito Moya MD Work Phone: [facility] 10-06-2024 13:06-0400 Systolic blood pressure 110 mm[Hg] Guanakito Moya MD Work Phone: [facility] 10-05-2024 20:12-0400 Body mass index (BMI) [Ratio] 27.44 kg/m2 Guanakito Moya MD Work Phone: [facility] 10-05-2024 20:12-0400 Body weight 70.26 kg Guanakito Moya MD Work Phone: [facility] 10-05-2024 18:22-0400 Body temperature 98.2 [degF] Dr. Tu Hector DO Work Phone: [facility] 10-05-2024 18:22-0400 Diastolic blood pressure 82 mm[Hg] Dr. Tu Hector DO Work Phone: [facility] 10-05-2024 18:22-0400 Heart rate 99 /min Dr. Tu Hector DO Work Phone: [facility] 10-05-2024 18:22-0400 Respiratory rate 20 /min Dr. Tu Hector DO Work Phone: [facility] 10-05-2024 18:22-0400 SaO2% (BldA) [Mass fraction] 93 % Dr. Tu Hector DO Work Phone: [facility] 10-05-2024 18:22-0400 Systolic blood pressure 116 mm[Hg] Dr. Tu Hector DO Work Phone: [facility] 10-05-2024 13:52-0400 Body height 160.[address] Tu Hector DO Work Phone: [facility] 10-05-2024 13:52-0400 Body mass index (BMI) [Ratio] 28.8 kg/m2 Dr. Tu Hector DO Work Phone: [facility] 10-05-2024 13:52-0400 Body weight 73.[address] Tu Hector DO Work Phone: [facility] 10-03-2024 13:56-0400 Body height 160 cm Wilfrido Luis DO Work Phone: [facility] 10-03-2024 13:56-0400 Body mass index (BMI) [Ratio] 28.87 kg/m2 Wilfrido Luis DO Work Phone: [facility] 10-03-2024 13:56-0400 Body weight 73.94 kg Wilfrido Luis DO Work Phone: [facility] 10-03-2024 13:56-0400 Diastolic blood pressure 62 mm[Hg] Wilfrido Luis DO Work Phone: [facility] 10-03-2024 13:56-0400 Heart rate 76 /min Wilfrido Luis DO Work Phone: [facility] 10-03-2024 13:56-0400 Systolic blood pressure 108 mm[Hg] Wilfrido Luis DO Work Phone: [facility] 10-03-2024 12:13-0400 Body height 160 cm Rachel Monk-Anh DO Work Phone: [facility] 10-03-2024 12:13-0400 Body mass index (BMI) [Ratio] 28.87 kg/m2 Rachel Monk-Anh DO Work Phone: [facility] 10-03-2024 12:13-0400 Body weight 73.94 kg Rachel Monk-Anh DO Work Phone: [facility] 10-03-2024 12:13-0400 Diastolic blood pressure 86 mm[Hg] Rachel Monk-Anh DO Work Phone: [facility] 10-03-2024 12:13-0400 Heart rate 98 /min Rachel Monk-Anh DO Work Phone: [facility] 10-03-2024 12:13-0400 Respiratory rate 18 /min Rachel Monk-Anh DO Work Phone: [facility] 10-03-2024 12:13-0400 SaO2% (BldA) [Mass fraction] 93 % Rachel Monk-Anh DO Work Phone: [facility] Comment on above: RA 10-03-2024 12:13-0400 Systolic blood pressure 127 mm[Hg] Rachel Monk-Anh DO Work Phone: [facility] 10-03-2024 11:10-0400 Diastolic blood pressure 89 mm[Hg] Silvio Fortune MD Work Phone: [facility] 10-03-2024 11:10-0400 Systolic blood pressure 141 mm[Hg] Silvio Fortune MD Work Phone: [facility] 10-03-2024 11:07-0400 Body mass index (BMI) [Ratio] 28.87 kg/m2 Silvio Fortune MD Work Phone: [facility] 10-03-2024 11:07-0400 Body weight 73.94 kg Silvio Fortune MD Work Phone: [facility] 10-03-2024 11:07-0400 Heart rate 95 /min Silvio Fortune MD Work Phone: [facility] 09-28-2024 10:00-0400 Heart rate 121 /min Dr. Tu Hector DO Work Phone: [facility] 09-28-2024 10:00-0400 SaO2% (BldA) [Mass fraction] 90 % Dr. Tu Hector DO Work Phone: [facility] 09-28-2024 09:50-0400 Body temperature 97.4 [degF] Dr. Tu Hector DO Work Phone: [facility] 09-28-2024 09:50-0400 Body weight 74.[address] Tu Hector DO Work Phone: [facility] 09-28-2024 09:50-0400 Diastolic blood pressure 84 mm[Hg] Dr. Tu Hector DO Work Phone: [facility] 09-28-2024 09:50-0400 Respiratory rate 20 /min Dr. Tu Hector DO Work Phone: [facility] 09-28-2024 09:50-0400 Systolic blood pressure 144 mm[Hg] Dr. Tu Hector DO Work Phone: [facility] 09-22-2024 08:07-0500 Body mass index (BMI) [Ratio] 28.8 kg/m2 Dr. Tu Hector DO Work Phone: [facility] 09-22-2024 08:07-0500 Body temperature 97.4 [degF] Dr. Tu Hector DO Work Phone: [facility] 09-22-2024 08:07-0500 Body weight 73.[address] Tu Hector DO Work Phone: [facility] 09-22-2024 08:07-0500 Diastolic blood pressure 72 mm[Hg] Dr. Tu Hector DO Work Phone: [facility] 09-22-2024 08:07-0500 Heart rate 100 /min Dr. Tu Hector DO Work Phone: [facility] 09-22-2024 08:07-0500 Respiratory rate 20 /min Dr. Tu Hector DO Work Phone: [facility] 09-22-2024 08:07-0500 SaO2% (BldA) [Mass fraction] 94 % Dr. Tu Hector DO Work Phone: [facility] 09-22-2024 08:07-0500 Systolic blood pressure 106 mm[Hg] Dr. Tu Hector DO Work Phone: [facility] 09-18-2024 13:18-0500 Body height 160.[address] Tu Hector DO Work Phone: [facility] 09-18-2024 13:18-0500 Body mass index (BMI) [Ratio] 29.8 kg/m2 Dr. Tu Hector DO Work Phone: [facility] 09-18-2024 13:18-0500 Body temperature 98.2 [degF] Dr. Tu Hector DO Work Phone: [facility] 09-18-2024 13:18-0500 Body weight 76.[address] Tu Hector DO Work Phone: [facility] 09-18-2024 13:18-0500 Diastolic blood pressure 85 mm[Hg] Dr. Tu Hector DO Work Phone: [facility] 09-18-2024 13:18-0500 Heart rate 86 /min Dr. Tu Hector DO Work Phone: [facility] 09-18-2024 13:18-0500 Respiratory rate 16 /min Dr. Tu Hector DO Work Phone: [facility] 09-18-2024 13:18-0500 SaO2% (BldA) [Mass fraction] 94 % Dr. Tu Hector DO Work Phone: [facility] 09-18-2024 13:18-0500 Systolic blood pressure 130 mm[Hg] Dr. Tu Hector DO Work Phone: [facility] 09-14-2024 00:30-0500 Body temperature 98.3 [degF] Dr. Tu Hector DO Work Phone: [facility] 09-14-2024 00:30-0500 Diastolic blood pressure 87 mm[Hg] Dr. Tu Hector DO Work Phone: [facility] 09-14-2024 00:30-0500 Heart rate 87 /min Dr. Tu Hector DO Work Phone: [facility] 09-14-2024 00:30-0500 Respiratory rate 19 /min Dr. Tu Hector DO Work Phone: [facility] 09-14-2024 00:30-0500 SaO2% (BldA) [Mass fraction] 92 % Dr. Tu Hector DO Work Phone: [facility] 09-14-2024 00:30-0500 Systolic blood pressure 137 mm[Hg] Dr. Tu Hector DO Work Phone: [facility] 09-13-2024 18:52-0500 Body mass index (BMI) [Ratio] 30.2 kg/m2 Dr. Tu Hector DO Work Phone: [facility] 09-13-2024 18:52-0500 Body weight 77.[address] Tu Hector DO Work Phone: [facility] 09-02-2024 13:16-0500 Body temperature 98.91 [degF] Dung Littlejohn MD Work Phone: [facility] 09-02-2024 13:16-0500 Body weight 77.7 kg Dung Littlejohn MD Work Phone: [facility] 09-02-2024 13:16-0500 Diastolic blood pressure 82 mm[Hg] Dung Littlejohn MD Work Phone: [facility] 09-02-2024 13:16-0500 Heart rate 90 /min Dung Littlejohn MD Work Phone: [facility] 09-02-2024 13:16-0500 Respiratory rate 18 /min Dung Littlejohn MD Work Phone: [facility] 09-02-2024 13:16-0500 SaO2% (BldA) [Mass fraction] 94 % Dung Littlejohn MD Work Phone: [facility] 09-02-2024 13:16-0500 Systolic blood pressure 134 mm[Hg] Dung Littlejohn MD Work Phone: [facility] 06-20-2024 11:00-0500 Body temperature 98.9 [degF] Dr. Tu Hector DO Work Phone: [facility] 06-20-2024 11:00-0500 Diastolic blood pressure 78 mm[Hg] Dr. Tu Hector DO Work Phone: [facility] 06-20-2024 11:00-0500 Heart rate 82 /min Dr. Tu Hector DO Work Phone: [facility] 06-20-2024 11:00-0500 Respiratory rate 16 /min Dr. Tu Hector DO Work Phone: [facility] 06-20-2024 11:00-0500 SaO2% (BldA) [Mass fraction] 99 % Dr. Tu Hector DO Work Phone: [facility] 06-20-2024 11:00-0500 Systolic blood pressure 115 mm[Hg] Dr. Tu Hector DO Work Phone: [facility] 06-20-2024 09:31-0500 Inhaled oxygen flow rate 1 L/min Dr. Tu Hector DO Work Phone: [facility] 06-20-2024 08:56-0500 Body mass index (BMI) [Ratio] 31.4 kg/m2 Dr. Tu Hector DO Work Phone: [facility] 06-20-2024 08:56-0500 Body weight 77.[address] Tu Hector DO Work Phone: [facility] 05-31-2024 16:45-0500 Body temperature 99.1 [degF] Sergio Athy PA-C Work Phone: [facility] 05-31-2024 16:45-0500 Body weight 75.4 kg Sergio Athy PA-C Work Phone: [facility] 05-31-2024 16:45-0500 Diastolic blood pressure 84 mm[Hg] Sergio Athy PA-C Work Phone: [facility] 05-31-2024 16:45-0500 Heart rate 94 /min Sergio Athy PA-C Work Phone: [facility] 05-31-2024 16:45-0500 Respiratory rate 18 /min Sergio Athy PA-C Work Phone: [facility] 05-31-2024 16:45-0500 SaO2% (BldA) [Mass fraction] 95 % Sergio Athy PA-C Work Phone: [facility] 05-31-2024 16:45-0500 Systolic blood pressure 140 mm[Hg] Sergio Athy PA-C Work Phone: [facility] 02-21-2024 14:34-0400 Body height 157.[address] SHANTEL SHI MD [facility] 02-21-2024 14:34-0400 Body temperature 98.42 [degF] DR SHANTEL SHI MD [facility] 02-21-2024 14:34-0400 Body weight 72.[address] SHANTEL SHI MD [facility] 02-21-2024 14:34-0400 Diastolic Blood Pressure Non-Invasive 94 mm[Hg] DR SHANTEL SHI MD [facility] 02-21-2024 14:34-0400 Heart rate 110 /min DR SHANTEL SHI MD [facility] 02-21-2024 14:34-0400 Respiratory rate 20 /min DR SHANTEL SHI MD [facility] 02-21-2024 14:34-0400 Systolic Blood Pressure Non-Invasive 148 mm[Hg] DR SHANTEL SHI MD [facility] 02-20-2024 15:18-0400 Blood Pressure Cuff Size CHRIS ALATORRE DO [facility] 02-20-2024 15:18-0400 Blood Pressure Location CHRIS METZKA DO [facility] 02-20-2024 15:18-0400 Blood Pressure Method CHRIS METZKA DO [facility] 02-20-2024 15:18-0400 Body temperature 98.24 [degF] CHRIS METZKA DO [facility] 02-20-2024 15:18-0400 Diastolic Blood Pressure Non-Invasive 87 mm[Hg] CHRIS METZKA DO [facility] 02-20-2024 15:18-0400 Heart rate 98 /min CHRIS ALATORRE DO [facility] 02-20-2024 15:18-0400 Respiratory rate 18 /min CHRIS ALATORRE DO [facility] 02-20-2024 15:18-0400 Systolic Blood Pressure Non-Invasive 134 mm[Hg] CHRIS ALATORRE DO [facility] 02-11-2024 07:53-0400 Diastolic Blood Pressure Non-Invasive 84 mm[Hg] DR SHANTEL SHI MD [facility] 02-11-2024 07:53-0400 Heart rate 80 /min DR SHANTEL SHI MD [facility] 02-11-2024 07:53-0400 Respiratory rate 18 /min DR SHANTEL SHI MD [facility] 02-11-2024 07:53-0400 Systolic Blood Pressure Non-Invasive 114 mm[Hg] DR SHANTEL SHI MD [facility] 02-11-2024 07:09-0400 Diastolic Blood Pressure Non-Invasive 59 mm[Hg] DR SHANTEL SHI MD [facility] 02-11-2024 07:09-0400 Heart rate 78 /min DR SHANTEL SHI MD [facility] 02-11-2024 07:09-0400 Respiratory rate 18 /min DR SHANTEL SHI MD [facility] 02-11-2024 07:09-0400 Systolic Blood Pressure Non-Invasive 115 mm[Hg] DR SHANTEL SHI MD [facility] 02-11-2024 06:57-0400 Heart rate 80 /min DR SHANTEL SHI MD [facility] 02-11-2024 06:57-0400 Respiratory rate 20 /min DR SHANTEL SHI MD [facility] 02-11-2024 06:34-0400 Body height 157.[address] SHANTEL SHI MD [facility] 02-11-2024 06:34-0400 Body temperature 99.32 [degF] DR SHANTEL SHI MD [facility] 02-11-2024 06:34-0400 Body weight [address] SHANTEL SHI MD [facility] 02-11-2024 06:34-0400 Diastolic Blood Pressure Non-Invasive 77 mm[Hg] DR SHANTEL SHI MD [facility] 02-11-2024 06:34-0400 Systolic Blood Pressure Non-Invasive 115 mm[Hg] DR SHANTEL SHI MD [facility] 02-04-2024 13:05-0400 Body temperature 99.86 [degF] DR SHANTEL SHI MD [facility] 02-04-2024 13:05-0400 Body weight [address] SHANTEL SHI MD [facility] 02-04-2024 13:05-0400 Diastolic Blood Pressure Non-Invasive 82 mm[Hg] DR SHANTEL SHI MD [facility] 02-04-2024 13:05-0400 Heart rate 78 /min DR SHANTEL SHI MD [facility] 02-04-2024 13:05-0400 Respiratory rate 18 /min DR SHANTEL SHI MD [facility] 02-04-2024 13:05-0400 Systolic Blood Pressure Non-Invasive 125 mm[Hg] DR SHANTEL SHI MD [facility] 01-28-2024 14:03-0400 Diastolic Blood Pressure Non-Invasive 87 mm[Hg] MAXINE TRIVEDI MD [facility] 01-28-2024 14:03-0400 Heart rate 86 /min MAXINE TRIVEDI MD [facility] 01-28-2024 14:03-0400 Respiratory rate 16 /min MAXINE TRIVEDI MD [facility] 01-28-2024 14:03-0400 Systolic Blood Pressure Non-Invasive 141 mm[Hg] MAXINE TRIVEDI MD [facility] 01-28-2024 12:45-0400 Body temperature 100.4 [degF] MAXINE TRIVEDI MD [facility] 01-28-2024 12:45-0400 Body weight 74.4 kg MAXINE TRIVEDI MD [facility] 01-28-2024 12:45-0400 Diastolic Blood Pressure Non-Invasive 93 mm[Hg] MAXINE TRIVEDI MD [facility] 01-28-2024 12:45-0400 Heart rate 105 /min MAXINE TRIVEDI MD [facility] 01-28-2024 12:45-0400 Respiratory rate 16 /min MAXINE TRIVEDI MD [facility] 01-28-2024 12:45-0400 Systolic Blood Pressure Non-Invasive 151 mm[Hg] MAXINE TRIVEDI MD [facility] 07-13-2023 17:41-0500 Heart rate 82 /min [facility] 07-13-2023 17:41-0500 Respiratory rate 16 /min [facility] 07-13-2023 15:22-0500 Body height 157.48 cm [facility] 07-13-2023 15:22-0500 Body mass index (BMI) [Ratio] 30.7 kg/m2 [facility] 07-13-2023 15:22-0500 Body temperature 97.8 [degF] [facility] 07-13-2023 15:22-0500 Body weight 76.29 kg [facility] 07-13-2023 15:22-0500 Diastolic blood pressure 91 mm[Hg] [facility] 07-13-2023 15:22-0500 SaO2% (BldA) [Mass fraction] 96 % [facility] 07-13-2023 15:22-0500 Systolic blood pressure 148 mm[Hg] [facility] 01-12-2023 10:24-0400 Body height 160 cm Oz Salazar MD Work Phone: [facility] 01-12-2023 10:24-0400 Body mass index (BMI) [Ratio] 28.87 kg/m2 Oz Salazar MD Work Phone: [facility] 01-12-2023 10:24-0400 Body weight 73.94 kg Oz Salazar MD Work Phone: [facility] 01-12-2023 10:24-0400 Diastolic blood pressure 75 mm[Hg] Oz Salazar MD Work Phone: [facility] 01-12-2023 10:24-0400 Heart rate 77 /min Oz Salazar MD Work Phone: [facility] 01-12-2023 10:24-0400 Systolic blood pressure 120 mm[Hg] Oz Salazar MD Work Phone: [facility] 12-20-2022 13:42-[address] LOKI PETERS DO [facility] 12-20-2022 13:42-0400 Body temperature 99.32 [degF] DR LOKI PETERS DO [facility] 12-20-2022 13:42-0400 Diastolic Blood Pressure Non-Invasive [address] LOKI PETERS DO [facility] 12-20-2022 13:42-0400 Heart rate 99 /min DR LOKI PETERS DO [facility] 12-20-2022 13:42-0400 Respiratory rate 16 /min DR LOKI PETERS DO [facility] 12-20-2022 13:42-0400 Systolic Blood Pressure Non-Invasive [address] LOKI PETERS DO [facility] 12-20-2022 12:55-0400 Body temperature 100.4 [degF] Jose F Cruz [employer]ER[employer] Work Phone: [facility] 12-20-2022 12:55-0400 Body weight 71.49 kg Jose F Cruz [employer] TENDER[employer] Work Phone: [facility] 12-20-2022 12:55-0400 Diastolic blood pressure 84 mm[Hg] Jose F Cruz PRESS TENDER[employer]PER[employer]TENA[employer] Work Phone: [facility] 12-20-2022 12:55-0400 Heart rate 115 /min Jose F Cruz PRESS TENDER[employer]PER[employer]TENA[employer] Work Phone: [facility] 12-20-2022 12:55-0400 Respiratory rate 21 /min Jose F Cruz PRESS TENDER[employer]PER[employer]TENA[employer] Work Phone: [facility] 12-20-2022 12:55-0400 SaO2% (BldA) [Mass fraction] 97 % Jose F Oliversarah PRESS TENDER.SUPERVISOR [employer]INTENA[employer] Work Phone: [facility] 12-20-2022 12:55-0400 Systolic blood pressure 108 mm[Hg] Jose F Oliversarah PR[employer] TENDER[employer]SUPER[employer]OR [employer]INTENA[employer] Work Phone: [facility] Encounters Encounter Date Encounter Type Care Provider Facility Start: 02-11-2025 Evaluation and manag ement of inpatient JOSELIN MAST Facility:[facility] Start: 01-28-2025 End: 01-28-2025 Emergency department patient visit Dr. Tu Hector DO Work Phone: -Emergency Department Work Phone: Start: 01-23-[address] Ranjith Chance MD -[facility] Start: 01-23-2025 End: 01-23-[address] Alis Chance MD -[facility] Work Phone: Start: 01-23-2025 End: 01-23-[address] Tu Hector DO Work Phone: -[place] [facility] Start: 01-16-2025 End: 01-16-[address] Tu Hector DO Work Phone: -Cat Scan [facility] Start: 01-16-2025 End: 01-16-2025 Patient encounter procedure Anayeli Win [employer]MER-C -Cat Scan [facility] Work Phone: Start: 01-16-2025 End: 01-16-2025 ambulatory Tu Hector Facility:[facility] Start: 01-04-[address] Ranjith Chance MD -[facility] Start: 01-02-[address] Ranjith Chance MD -[facility] Start: 01-02-2025 End: 01-02-[address] Alis Chance MD -[facility] Work Phone: Start: 01-02-2025 End: 01-02-[address] Tu Hector DO Work Phone: [facility] Work Phone: Start: 12-12-2024 End: 12-12-2024 Patient encounter procedure Anayeli Win NP-C -[facility] Work Phone: Start: 12-12-2024 End: 12-12-[address] Tu Hector DO Work Phone: [facility] Work Phone: Start: 12-12-[address] Ranjith Chance MD -[facility] Start: 11-24-2024 End: 11-24-2024 Emergency department patient visit ENID FORMAN MD [facility] Start: 11-21-2024 End: 11-21-[address] Alis Chance MD -[facility] Work Phone: Start: 11-21-2024 End: 11-21-2024 ambulatory Tu Hector Facility:[facility] Start: 11-17-2024 End: 11-17-[address] Kilo Morse MD -[facility] Work Phone: Start: 11-17-2024 End: 11-17-2024 ambulatory Tu Hector Facility:[facility] Start: 11-16-2024 ambulatory Omar Trimblei lity:[facility] Start: 11-16-2024 Non-patient / Non-visit Dr. Zhanna Hicks MD -[facility] Start: 11-16-2024 End: 11-16-2024 Admission to same day surgery center Dr. Omar Hicks MD [facility] Start: 11-16-2024 End: 11-16-2024 ambulatory Omar Hicks Facility:[facility] Start: 11-09-2024 End: 11-09-2024 Patient encounter procedure Anayeli Win NP-C -[facility] Work Phone: Start: 11-09-2024 End: 11-09-2024 ambulatory Tu Hector Facility:[facility] Start: 11-01-2024 End: 11-01-2024 Telephone encounter Wilfrido Luis Work Phone: [facility] Cardiology [facility] Comment on above: Other Start: 10-31-2024 End: 10-31-2024 Patient encounter procedure Anayeli BillAudelia NP- -[facility] Work Phone: Start: 10-31-2024 End: 10-31-2024 ambulatory Tu Hector Facility:[facility] Start: 10-27-2024 End: 10-27-[address] Omar Hicks MD -[facility] Work Phone: Start: 10-27-2024 End: 10-27-2024 ambulatory Omar Hicks Facility:[facility] Start: 10-26-2024 End: 10-26-2024 Patient encounter procedure Anayeli BillAudelia NP-[facility] Work Phone: Start: 10-26-2024 End: 10-26-2024 ambulatory Tu Hector Facility:[facility] Start: 10-26-2024 End: 10-26-2024 Office outpatient new 60 minutes Joselyn Tucker MD Work Phone: [facility] Endocrinology [facility] Comment on above: Multinodular goiter (nontoxic) (Primary Dx); Stage 3a chronic kidney disease (HCC) Start: 10-26-2024 End: 10-26-2024 ambulatory JOSELYN [facility] Start: 10-25-2024 End: 10-25-[address] 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 Tu Hector DO Work Phone: -Emergency Department Work Phone: Start: 10-20-2024 End: 10-20-2024 Subsequent hospital visit by physician Silvio Fortune MD Work Phone: [facility] PET Comment on above: Pleural mass Start: 10-20-2024 End: 10-20-2024 ambulatory [facility] Start: 10-19-2024 End: 10-19-2024 Orders Only Rachel Johnson DO Work Phone: [facility] [place] Comment on above: Small cell carcinoma of left lung, unspecified part of lung (HCC) (Primary Dx) Start: 10-17-2024 End: 10-17-2024 Documentation procedure Aixa Roche [facility] Ana Maria g Nodule [facility] [place] Comment on above: Tumor Board Recommen dations (Thoracic Tumor Board Recommendations 10/17/24) Start: 10-17-2024 End: 10-19-2024 Telephone encounter Aixa Roche [facility] Lung Nodule [facility] [place] Comment on above: Care Coordination (E xpedite PET scan and send records to med onc in [place] ) Start: 10-17-2024 End: 10-17-2024 Office outpatient visit 25 minutes Rachel Johnson DO Work Phone: [facility] [place] Comment on above: Small cell carcinoma of left lung, unspecified part of lung (HCC) (Primary Dx); Chronic obstructive pulmonary disease, unspecified COPD type (HCC); 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 Tu Hector DO -Cat Scan, [facility] Work Phone: Start: 10-10-2024 End: 10-10-[address] Tu Hector DO Work Phone: [facility] Work Phone: Start: 10-09-2024 End: 10-10-2024 ambulatory CAIN MEJIA [facility] Start: 10-09-2024 End: 10-09-2024 Subsequent hospital visit by physician Cain Mejia MD Work Phone: [facility] Comment on above: Hilar mass; Adenopathy; Lung mass Start: 10-06-[address] JANNETH SLATER MD Facility:[facility] Start: 10-05-2024 End: 10-06-2024 ambulatory NACHO RAMÍREZ [facility] Start: 10-05-2024 End: 10-06-2024 Subsequent hospital visit by physician Guanakito Rodriguez MD Work Phone: [facility] Cardiac Post Intervention Progressive Care Unit [facility] PCU 4W Comment on above: Pleural effusion (Pr imary Dx); Lung mass Start: 10-05-2024 End: 10-05-2024 Telephone encounter Cain Mejia MD Work Phone: [facility] [place] Comment on above: Care Coordination Start: 10-05-2024 End: 10-05-2024 Emergency department patient visit Dr. Tu Hector DO Work Phone: -Emergency Department Work Phone: Start: 10-03-2024 End: 10-03-2024 Office outpatient new 45 minutes Wilfrido Hirosi DO Work Phone: [facility] Cardiology - [place] Comment on above: Pericardial effusion Start: 10-03-2024 End: 10-03-2024 Telephone encounter Aixa Jansenmika [facility] [place] Comment on above: Care Coordination (L ehsan Nodule Follow up / Expedite LNC and Cardiology eval / PFT From [facility] ) Start: 10-03-2024 End: 10-03-2024 ambulatory [facility] Start: 10-03-2024 End: 10-03-2024 Office outpatient new 45 minutes Rachel Johnson DO Work Phone: [facility] [place] Comment on above: Lung mass (Primary D x); Pulmonary emphysema, unspecified emphysema type (HCC); Adenopathy; Pericardial effusion; Chronic obstructive pulmonary disease, unspecified COPD type (HCC); History of tobacco use Start: 10-03-2024 End: 10-03-2024 ambulatory RACHEL JOHNSON [facility] Start: 10-03-2024 End: 10-03-2024 Office outpatient new 60 minutes Silvio Fortune MD Work Phone: [facility] Cardiovascular Thoracic Surgery - [place] Comment on above: Hilar mass (Primary Dx); Right atrial mass Start: 10-03-2024 End: 10-03-2024 ambulatory SILVIO FORTUNE [facility] Start: 09-29-2024 ambulatory Jose Perdomo Facility:[facility] Start: 09-28-2024 End: 09-28-2024 Patient encounter procedure Rhiannon Georges BLUE PRINTS TRIMMERJhonathanC -[facility] Work Phone: Start: 09-28-2024 End: 09-28-2024 ambulatory Tu Hector Facility:[facility] Start: 09-25-2024 End: 09-25-2024 ambulatory TU HECTOR DO Facility:[facility] Start: 09-25-2024 Non-patient / Non-visit Dr. Jose joshi DO -[facility] Start: 09-25-2024 End: 09-25-[address] Tu Hector DO Work Phone: [facility] Work Phone: Start: 09-25-2024 End: 09-25-2024 Patient encounter procedure Rhiannon Georges BLUE PRINTS TRIMMER-C -Pulmonary Services/Neurology Work Phone: Start: 09-25-2024 End: 09-25-2024 ambulatory Rhiannon Georges NP Facility:[facility] Start: 09-22-2024 End: 09-22-[address] Tu Hector DO Work Phone: [facility] Work Phone: Start: 09-22-2024 End: 09-22-2024 Patient encounter procedure Rhiannon Georges NP-C -Laboratory Work Phone: Start: 09-22-2024 End: 09-22-2024 Patient encounter procedure Rhiannon Georges BLUE PRINTS TRIMMER-C -[facility] Work Phone: Start: 09-22-2024 End: 09-22-2024 ambulatory Tu Hector Facility:[facility] Start: 09-21-2024 End: 09-22-2024 ambulatory Tu Hector Facility:[facility] Start: 09-19-2024 End: 09-19-2024 ambulatory TU HECTOR DO Facility:[facility] Start: 09-19-2024 End: 09-19-2024 Patient encounter procedure JOSELIN NIETO PRESS TENDER-SUPERVISOR MAINTENANCE [facility] Start: 09-18-[address] Ranjith Chance MD -[facility] Start: 09-18-2024 End: 09-18-[address] Alis Chance MD -[facility] Work Phone: Start: 09-18-2024 End: 09-18-2024 ambulatory Chris Maria Facility:[facility] Start: 09-13-2024 End: 09-14-2024 Emergency department patient visit Dr. Chris Maria MD -Emergency Department Work Phone: Start: 09-13-2024 End: 09-17-2024 ambulatory TU HECTOR DO Facility:[facility] Start: 09-13-2024 End: 09-17-2024 Outreach Lab JOSELIN MAST PRESS TENDER-SUPERVISOR MAINTENANCE [facility] Start: 09-13-2024 End: 09-13-2024 ambulatory JOSELIN MAST PRESS TENDER-SUPERVISOR MAINTENANCE [facility] Start: 09-13-2024 End: 09-13-2024 Patient encounter procedure JOSELIN MAST PRESS TENDER-SUPERVISOR MAINTENANCE [facility] Start: 09-03-2024 End: 09-03-2024 Follow-up encounter Renetta Villalobos PRESS TENDER.SUPERVISOR MAINTENANCE Work Phone: [facility] Start: 09-02-2024 End: 09-02-2024 ambulatory SERGIO ATHY Facility:[facility] Start: 09-02-2024 End: 09-02-2024 Patient encounter procedure Dung Littlejohn MD Work Phone: [facility] Comment on above: COPD with exacerbati on (HCC) (Primary Dx); URI, acute Start: 06-20-2024 End: 06-20-2024 Emergency department patient visit Dr. Anh Irene DO -Emergency Department Work Phone: Start: 05-31-2024 End: 05-31-2024 Subsequent hospital visit by physician [facility] Work Phone: Radiology Comment on above: Acute cough [R05.1] Start: 05-31-2024 End: 05-31-2024 ambulatory SERGIO R ATHY Facility:[facility] Start: 05-31-2024 End: 05-31-2024 Patient encounter procedure Sergio Mohr PA-C Work Phone: [facility] Comment on above: Infiltrate of lower lobe of left lung present on imaging study (Primary Dx) Start: 02-21-2024 End: 02-21-2024 Emergency department patient visit DR SHANTEL SHI MD [facility] Start: 02-21-2024 ambulatory CHRIS CELI CAT Facili ty:B Start: 02-20-2024 End: 02-20-2024 Emergency department patient visit CHRIS ALATORRE [facility] Start: 02-11-2024 End: 02-11-2024 Emergency department patient visit DR SHANTEL SHI MD [facility] Start: 02-04-2024 End: 02-04-2024 Emergency department patient visit DR SHANTEL SHI MD [facility] Start: 01-28-2024 End: 01-28-2024 Emergency department patient visit MAXINE TRIVEDI MD [facility] Start: 11-25-2023 End: 11-25-2023 ambulatory TU HECTOR DO Facility:[facility] Start: 11-25-2023 End: 11-25-2023 Patient encounter procedure TU HECTOR DO [facility] Start: 10-28-2023 End: 10-28-2023 ambulatory [facility] Work Phone: Start: 10-28-2023 End: 10-28-2023 Patient encounter procedure [facility] Work Phone: Start: 09-29-2023 End: 10-03-2023 ambulatory TU HECTOR DO Facility:[facility] Start: 09-29-2023 End: 10-03-2023 Outreach Lab TU HECTOR DO [facility] Start: 07-13-2023 End: 07-13-2023 Emergency department patient visit [facility]-Emergency Department Work Phone: Start: 03-09-2023 End: 03-13-2023 ambulatory TU HECTOR DO Facility:[facility] Start: 03-09-2023 End: 03-13-2023 Outreach Lab TU HECTOR DO [facility] Start: 01-18-2023 ambulatory Marty Daily PA-C Work Phone: [facility] Start: 01-15-2023 Telephone encounter Oz davis MD Work Phone: [facility] Start: 01-12-2023 End: 01-12-2023 Office outpatient new 30 minutes Oz Salazar MD Work Phone: [facility] Comment on above: Elbow mass, left (Pr imary Dx) Start: 12-30-2022 End: 12-30-2022 Patient encounter procedure TU HECTOR DO [facility] Start: 12-20-2022 End: 12-20-2022 Emergency department patient visit DR LOKI PETERS DO [facility] Start: 12-20-2022 End: 12-20-2022 Patient encounter procedure Jose F Cruz PRESS TENDER.SUPERVISOR MAINTENANCE Work Phone: [facility] Comment on above: Cat bite, initial en counter (Primary Dx) Start: 10-30-2021 End: 10-30-2021 Patient encounter procedure CHANDLER WEBER PRESS TENDER-SUPERVISOR MAINTENANCE [facility] Start: 10-24-2021 End: 10-24-2021 Patient encounter procedure TU HECTOR DO [facility] Start: 10-23-2021 End: 10-23-2021 Patient encounter procedure TU HECTOR DO [facility] Start: 01-14-2021 End: 01-14-2021 Subsequent hospital visit by physician [facility] Work Phone: Radiology Comment on above: Cough [R05] Start: 12-17-2020 End: 12-17-2020 Subsequent hospital visit by physician [facility] Work Phone: Radiology Comment on above: [...] Glucose quantitative blood xcpt reagent strip Emile Patel[facility]iorCare DO Work Phone: Start: 10-06-2024 Comprehensive metabo [...] exam ches t 2 views Sergio Mohr PA-C Work Phone: Start: 10-28-2023 Plain x-ray of pelvi s and lower extremity Start: 10-28-2023 Radiologic examinati on of knee Start: 01-14-2021 Radiologic exam ches t 2 views Silvio Perez PRESS TENDER.SUPERVISOR MAINTENANCE Work Phone: Start: 12-17-2020 Radiologic exam ches t 2 views Renetta Villalobos PRESS TENDER.SUPERVISOR MAINTENANCE Work Phone: Start: 07-19-2012 Total knee replacement [...] DTaP/Tdap/Td Vaccines (3 - Td or Tdap) [facility] Start: 01-27-2034 Urine microalbumin profile DTaP,Tdap,Td Vaccine (3 - Td or Tdap) [facility] Start: 12-15-2026 RSV Vaccine (1 - 1-dose 75+ series) RSV Vaccine (1 - 1-dose 75+ series) [facility] Start: 10-29-2025 End: 10-29-2025 Patient encounter procedure 10/29/2025 11:00 AM EDT Office Visit [facility] [address] [place] [address] Joselyn Tucker MD [address] [place] [address] [facility] Start: 03-19-2025 Influenza vaccination Influenza Vaccine (Season Ended) [facility] Start: 01-28-2025 [facility] Start: 01-23-2025 [facility] Start: 01-16-2025 Venous catheter care management [facility] Start: 01-02-2025 [facility] Start: 12-12-2024 [facility] Start: 11-16-2024 Patient discharge [facility] Start: 11-16-2024 Anesthesia access central venous circulation ANESTH VASCULAR ACCESS [facility] Start: 11-16-2024 Insj tunneled ctr vad w/subq port age 6 yr/> INSERT TUNNELED CV CATH [facility] Start: 11-15-2024 End: 11-15-2024 Patient encounter procedure 11/15/2024 4:00 PM EDT Office Visit [facility] Card[facility] [address] [place] [address] Wilfrido Luis DO [address] [place] [address] [facility] Card[facility] Start: 10-31-2024 Patient referral [facility] Work Phone: Start: 10-31-2024 Venous catheter care management [facility] Start: 10-30-2024 End: 10-30-2024 Patient encounter procedure 10/30/2024 3:00 PM EDT Appointment [facility] [address] [place] [address] Silvio Fortune MD [address] [facility] [place] [address] [facility] Start: 10-21-2024 [facility] Start: 10-21-2024 [facility] Start: 10-20-2024 End: 10-20-2024 Patient encounter procedure 10/20/2024 2:00 PM EDT Appointment [facility] [address] [facility] [place] [address] Silvio Fortune MD [address] [place] [address] [facility] Start: 10-17-2024 End: 10-17-2024 Patient encounter procedure [facility] Start: 10-17-2024 Subsequent hospital visit by physician 10/17/2024 9:00 AM EDT Hospital Encounter [facility] [address] [place] [id number] Silvio Fortune MD [address] [facility] [place] [address] [facility] Start: 10-09-2024 End: 10-09-2024 Admission to same day surgery center 10/09/2024 1:30 PM EDT - 10/09/2024 3:00 PM EDT Surgery [facility] Endoscopy [address] [place] [address] Cain Mejia MD [address] [facility] [address] [place] [address] ENDOBRONCHIAL ULTRASOUND WITH TRANSBRONCHIAL NEEDLE ASPIRATION. POSSIBLE ENDOBRONCHIAL BIOPSIES, NEEDLE ASPIRATION, AND BRUSHINGS. [36317 (CPT )] [facility] Endoscopy Comment on above: ENDOBRONCHIAL ULTRASOUND WITH TRANSBRONC HIAL NEEDLE ASPIRATION. POSSIBLE ENDOBRONCHIAL BIOPSIES, NEEDLE ASPIRATION, AND BRUSHINGS. [92746 (CPT )] Start: 10-09-2024 End: 10-09-2024 [facility] ebus guided sampl 3/> node station/strux BRONCHOSCOPY, RIGID OR FLEXIBLE, WITH ENDOBRONCHIAL ULTRASOUND Hilar mass Adenopathy Lung mass 10/09/2024 1:30 PM EDT [facility] Gastroenterology Start: 10-09-2024 Subsequent hospital visit by physician 10/09/2024 1:30 PM EDT Hospital Encounter [facility] [address] [place] [address] Cain Mejia MD [address] [place] [address] [facility] Endoscopy Start: 10-05-2024 [facility] Start: 10-05-2024 End: 10-05-2024 [facility] Start: 10-05-2024 Bacteria identified in Blood by Culture Blood Culture [facility] Start: 09-14-2024 [facility] Start: 09-13-2024 [facility] Start: 09-13-2024 [facility] Start: 07-19-2024 Advance Directive Discussion Advance Directive Discussion [facility] Start: 07-19-2024 Medicare Advantage Annual Wellness Visit Medicare Advantage Annual Wellness Visit [facility] Start: 06-20-2024 [facility] Start: 03-19-2024 Covid-19 Vaccine ( season) Covid-19 Vaccine () [facility] Start: 03-19-2024 Influenza vaccination Influenza Vaccine (#1) [facility] Start: 07-19-2023 Advance Directive Discussion Advance Directive Discussion [facility] Start: 03-19-2023 Influenza vaccination [facility] Start: 07-19-2022 ADVANCE DIRECTIVE DISCUSSION ADVANCE DIRECTIVE DISCUSSION [facility] Start: 07-19-2022 DEPRESSION ASSESSMENT DEPRESSION ASSESSMENT [facility] Start: 12-15-2016 BONE DENSITY BONE DENSITY [facility] Start: 12-15-2016 Pneumococcal Vaccine: 65+ (1 of 1 - PCV) Pneumococcal Vaccine: 65+ (1 of 1 - PCV) [facility] Start: 12-15-2016 PNEUMOCOCCAL: 65+ (1 - PCV) PNEUMOCOCCAL: 65+ (1 - PCV) [facility] Start: 12-15-2016 Screening for osteoporosis Bone Density Screening [facility] Start: 2011 RSV Immunization for Adults (1 - Risk 60-74 years 1-dose series) RSV Immunization for Adults (1 - Risk 60-74 years 1-dose series) [facility] Start: 12-15-2001 Pneumococcal Vaccine: 50+ (1 of 1 - PCV) Pneumococcal Vaccine: 50+ (1 of 1 - PCV) [facility] Start: 12-15-2001 SHINGRIX VACCINE (1 of 2) SHINGRIX VACCINE (1 of 2) [facility] Start: 12-15-2001 Zoster Vaccines (1 of 2) Zoster Vaccines (1 of 2) [facility] Start: 12-15-1996 COLOGUARD (FIT-DNA) COLOGUARD (FIT-DNA) [facility] Start: 12-15-1996 Colonoscopy COLONOSCOPY [facility] Start: 12-15-1996 COLORECTAL CANCER SCREENING COLORECTAL CANCER SCREENING [facility] Start: 12-15-[address] COLONOGRAPHY [facility] Start: 12-15-1996 DIABETES SCREEN DIABETES SCREEN [facility] Start: 12-15-1996 Diabetes Screening Diabetes Screening [facility] Start: 12-15-1996 FECAL OCCULT BLOOD FECAL OCCULT BLOOD [facility] Start: 12-15-1996 Lipid panel Lipid Screening [facility] Start: 12-15-1996 LIPID SCREEN LIPID SCREEN [facility] Start: 12-15-1996 Screening for malignant neoplasm of colon [facility] Start: 12-15-1996 SIGMOIDOSCOPY SIGMOIDOSCOPY [facility] Start: 1991 Mammography MAMMOGRAM [facility] Start: 1991 Screening for malignant neoplasm of breast [facility] Start: 12-15-1970 DTaP/Tdap/Td Vaccines (1 - Tdap) DTaP/Tdap/Td Vaccines (1 - Tdap) [facility] Start: 12-15-1970 Pneumococcal Vaccine: 50+ Years (1 of 2 - PCV) Pneumococcal Vaccine: 50+ Years (1 of 2 - PCV) [facility] Start: 12-15-1970 Urine microalbumin profile [facility] Start: 12-15-1969 Anxiety Screening Anxiety Screening [facility] Start: 12-15-1969 Depression Screening Depression Screening [facility] Start: 12-15-1969 Diabetes mellitus screening Diabetes Screening [facility] Start: 12-15-1969 HEPATITIS C SCREENING HEPATITIS C SCREENING [facility] Start: 12-15-1969 Hepatitis C screening Hepatitis C Screening [facility] Start: 1963 Depression Monitoring Depression Monitoring [facility] Start: 1963 Depression Screening Depression Screening [facility] Start: 12-15-1957 Pneumococcal Vaccine: 65+ Years (1 - PCV) Pneumococcal Vaccine: 65+ Years (1 - PCV) [facility] Start: 06-17-1952 COVID-19 VACCINE (#1) COVID-19 VACCINE (#1) [facility] Start: 1951 Lipid panel Lipid Panel [facility] Start: 1951 Screening for malignant neoplasm of colon [facility] Start: 1951 Screening for osteoporosis Bone Density Scan [facility] Start: 1951 Thyroid Nodule Ultrasound Thyroid Nodule Ultrasound [facility] End: 10-06-2024 Aerobic and Anaerobic Culture with Stain Aerobic and Anaerobic Culture with Stain Microbiology Routine Once (Lab) for 1 Occurrences starting 10/06/2024 until 10/06/2024 [facility] Work Phone: Comment on above: Once (Lab) for 1 Occurrences starting until 10/06/2024 Bacteria identified in Lower respiratory specimen by Aerobe culture Respiratory culture and Stain Microbiology Routine Hilar mass Adenopathy Lung mass 10/09/2024 3:34 PM EDT [facility] End: 10-06-2024 Bacteria identified in Unspecified specimen by Aerobe culture Culture, Aerobic Bacteria with Gram Stain Microbiology Timed Once for 1 Occurrences starting 10/06/2024 until 10/06/2024 [facility] Comment on above: Once for 1 Occurrences starting 10/07/19 until 10/06/2024 End: 10-06-2024 Bacteria identified in Unspecified specimen by Anaerobe culture Anaerobic culture Microbiology Timed Once for 1 Occurrences starting 10/06/2024 until 10/06/2024 [facility] Comment on above: Once for 1 Occurrences starting 10/07/19 until 10/06/2024 CBC W Auto Different ial panel - Blood [facility] CBC W Auto Different ial panel - Blood [facility] CBC W Auto Different ial panel - Blood [facility] Comprehensive metabo lic 1999 panel - Serum or Plasma [facility] Comprehensive metabo lic 1999 panel - Serum or Plasma [facility] Comprehensive metabo lic 1999 panel - Serum or Plasma [facility] Cortisol [Mass/volum e] in Serum or Plasma [facility] COVID & INFLUENZA A/ B & RSV PCR, ROUTINE COVID & INFLUENZA A/B & RSV PCR, ROUTINE Microbiology Routine COPD with exacerbation (HCC) URI, acute Ordered: 09/02/2024 [facility] Work Phone: Comment on above: Ordered: 09/02/2024 CT Abdomen and Pelvi s W contrast IV [facility] Fine needle aspiration [facility] Comment on above: Release Upon Ordering for 1 Occurrences starting 10/09/2024, 1 completed Folate [Moles/volume ] in Serum or Plasma [facility] Fungus identified in Unspecified specimen by Culture [facility] Comment on above: Release Upon Ordering for 1 Occurrences starting 10/09/2024 Fungus identified in Unspecified specimen by Fungus stain [facility] Comment on above: Release Upon Ordering for 1 Occurrences starting 10/09/2024 Magnesium measurement [facility] End: 10-17-2024 MR Brain WO and W contrast IV [facility] Work Phone: Comment on above: Once for 1 Occurrences starting 10/18/19 until 10/17/2024 Mycobacterium sp identified in Unspecified specimen by Organism specific culture [facility] Comment on above: Release Upon Ordering for 1 Occurrences starting 10/09/2024 End: 10-06-2024 Non-gynecologic cytology Non-gynecologic cytology Pathology and Cytology Routine Once (Lab) for 1 Occurrences starting 10/06/2024 until 10/06/2024 [facility] Comment on above: Once (Lab) for 1 Occurrences starting until 10/06/2024 Non-Gynecologic Cytology Slide [facility] Work Phone: Comment on above: Release Upon Ordering for 1 Occurrences starting 10/09/2024 Patient Education [facility] Work Phone: Patient referral [facility] Work Phone: End: 10-20-2024 PET+CT Bone from skull base to mid-thigh W [id number] IV [facility] Work Phone: Comment on above: Once for 1 Occurrences starting 10/21/19 until 10/20/2024 Serum inorganic phosphate measurement [facility] T4 free measurement [facility] Thyroid stimulating hormone measurement [facility] Tissue exam [facility] Comment on above: Release Upon Ordering for 1 Occurrences starting 10/09/2024 Troponin T.cardiac [Mass/volume] in Serum or Plasma by High sensitivity method [facility] US Heart limited [facility] Walking distance 6 minutes [facility] Immunizations Immunization Date Immunization Notes Care Provider Bernard crow 01-28-2024 tetanus toxoid, reduced diphtheria toxoid, and acellular pertussis vaccine, adsorbed MAXINE TRIVEDI MD [facility] 07-13-2023 tetanus toxoid, reduced diphtheria toxoid, and acellular pertussis vaccine, adsorbed [facility] 06-23-2006 influenza virus vaccine, unspecified formulation Jose F Cruz PRESS TENDER.SUPERVISOR MAINTENANCE Work Phone: [facility] Work Phone: 04-24-2003 influenza virus vaccine, unspecified formulation Jose F Cruz PRESS TENDER.SUPERVISOR MAINTENANCE Work Phone: [facility] Work Phone: Payers Date Payer Category Payer Medicare O ANTH MEDICARE ADVANTAGE [id number] 2024 Self-pay [id number] 2021 Medicare ANTHEM MEDICARE ADVANTAGE [employer] [id number] 2021-Present [address] [place] [address] Medicare HMO [id number] 2019 Medicare (Managed Care) [employer] HMO [id number] 2019 Unknown [id number] 2019 Medicare [id number] 2016 Private Health Insurance [facility] [id number] 1951 Unknown [id number] 2.840.1.373179.3.579. 2. 1951 Unknown [id number] 2.840.1.100732.3.579. 2 1951 Unknown [id number] .840.1.492424.3.579. 2 1951 Unknown [id number] .840.1.898455.3.579. 2. 1951 Unknown [id number] .840.1.630524.3.579. 2 1951 Unknown [id number] .840.1.515145.3.579. 2. 1951 Unknown [id number] .16840.1.752146.3.579. 2 1951 Unknown [id number] 2.16840.1.807765.3.579. 2 1951 Unknown [id number] 2.840.1.863017.3.579. 2 1951 Unknown [id number] 2.16.840.1.704996.3.579. 2.627 1951 Unknown [id number] 2.840.1.112009.3.579. 2. 1951 Unknown [id number] 2.840.1.889816.3.579. 2. 1951 Unknown [id number] 2.0.1.234378.3.579. 2. 1951 Unknown [id number] 2.840.1.106265.3.579. 2. 1950 Unknown [id number] .0.1.540490.3.579. 2. Medicare MEDICARE PART A B [id number] Self-pay SELF PAY INSURANCE [id number] Unknown COMMERCIAL OTHER [id number] Unknown [id number] .0.1.258148.3.579. 2.462 Unknown [id number] 09.03.830.1.187504.3.579. 2.462 Unknown [id number] 09.03.830.1.757114.3.579. 2.462 Unknown [id number] .840.1.506802.3.579. 2.462 Unknown [id number] .840.1.170927.3.579. 2.462 Unknown [id number] 2.840.1.612476.3.579. 2.462 Unknown [id number] 2.840.1.232658.3.579. 2.462 Unknown [id number] 2.840.1.626747.3.579. 2.462 Unknown [id number] 2.16.840.1.960456.3.579. 2.462 Unknown [id number] 2.16.840.1.285999.3.579. 2.462 Unknown [id number] 2.16.840.1.330219.3.579. 2.462 Unknown [id number] 2.16.840.1.771509.3.579. 2.462 Unknown [id number] 2.16.840.1.997994.3.579. 2.462 Unknown [id number] 2.16.840.1.806842.3.579. 2.462 Unknown [id number] 2.16.840.1.782315.3.579. 2.462 Unknown [id number] 2.16.840.1.688766.3.579. 2.462 Unknown [id number] 2.16.840.1.858397.3.579. 2.462 Unknown [id number] 2.16.840.1.233568.3.579. 2.462 Unknown [id number] 2.16.840.1.776535.3.579. 2.462 Unknown [id number] 2.16.840.1.924631.3.579. 2.462 Unknown [id number] 2.16.840.1.156472.3.579. 2.462 Unknown [id number] 2.16.840.1.116419.3.579. 2.462 Unknown [id number] 2.16.840.1.458963.3.579. 2.462 Unknown [id number] 2.16.840.1.591147.3.579. 2.462 Unknown [id number] 2.16.840.1.928869.3.579. 2.462 Unknown [id number] 2.16.840.1.452475.3.579. 2.462 Unknown [id number] 2.16.840.1.786144.3.579. 2.462 Unknown [id number] 2.16.840.1.076174.3.579. 2.462 Unknown [id number] 2.16.840.1.397581.3.579. 2.462 Unknown [id number] 2.16.840.1.083913.3.579. 2.462 Social History Date Type Detail Facility Start: 12-12-2020 Tobacco smoking status Heavy t obacco smoker (finding) [facility] Start: 1950 Sex Assigned At Female A [facility] Start: 12-20-2022 End: 01-28-2025 Tobacco smoking status NHIS Ex-smoker [facility] Start: 1971 End: 12-15-2006 History of tobacco use Current smoker [facility] Start: 1971 End: 12-15-2006 History of tobacco use Cigarette Smoker [facility] Start: 12-20-2022 End: 10-26-2024 Cigarettes smoked current (pack per day) - Reported 1 [facility] Start: 12-20-2022 End: 10-03-2024 Tobacco use and exposure Smokeless tobacco non-user [facility] Start: 12-20-2022 End: 05-31-2024 Alcohol intake Current non-drinker of alcohol (finding) [facility] Start: 1950 Sex Assigned At Not on file [facility] Start: 01-11-2023 Tobacco smoking stat us TXIS Smokes tobacco daily [facility] Start: 01-12-2023 Alcohol intake Current drinke r of alcohol (finding) [facility] Start: 01-12-2023 End: 10-26-2024 Tobacco use panel [facility] Start: 11-17-2020 End: 01-12-2023 Exposure to SARS-CoV-2 (event) Not sure [facility] Start: 07-13-2023 End: 07-13-2023 Tobacco smoking status TXIS Unknown if ever smoked [facility] Start: 04-30-2020 None [facility] Start: 04-30-2020 Alone [facility] National Score (1-10 0), lower number is lower risk Not on file [facility] Sexual Orientation [facility] Viktoriya cook [facility] Start: 09-21-2019 End: 02-16-2022 Sex Female (finding) [facility] History of tobacco use Passive smoker [facility] Start: 10-03-2024 End: 10-17-2024 Alcoholic beverage intake Ex-drinker (finding) [facility] Start: 10-05-2024 Gender identity Identifies as female gender (finding) [facility] Start: 10-05-2024 Sexual orientation Heterosexual (fin ding) [facility] Medical Equipment Procedure Code Equipment Code Equipment Origin al Text Equipment Identifier Dates Insertion, vascular access port ([id number]) Vascular port/catheter ()[id number] FDA Start: 11-16-2024 Goals Date Patient Goal Desired Activity /State Functional Status Date Assessment Result Facility 11-24-2024 Functional Status Activity Canelodelano marcum [facility] 02-21-2024 Functional Status Room check performed [facility] 02-20-2024 Functional Status Ambulation in López, Ambulation in Room [facility] 02-11-2024 Functional Status Independent [facility] 02-04-2024 Functional Status Standard Safet y ID band on, Call device within reach, Bed in low position, Wheels locked, Upper/Half-Length side-rails up, Bedside Cart Locked, Safety level maintained [facility] 01-28-2024 Functional Status Independent [facility] 01-28-2024 Functional Status Standard Safet y ID band on, Call device within reach, Bed in low position, Wheels locked [facility] 05-11-2014 Are you deaf, or do you have serious difficulty hearing No 05/11/2014 1:16 PM Bushra Benjamin RN No [facility] 05-11-2014 Are you blind, or do you have serious difficulty seeing, even when wearing glasses No 05/11/2014 1:16 PM Bushra Benjamin RN No [facility] 05-11-2014 Do you have serious difficulty walking or climbing stairs No 05/11/2014 1:16 PM EDT Bushra Koenig RN No [facility] 05-11-2014 Do you have difficul ty dressing or bathing No 05/11/2014 1:16 PM EDT Bushra Koenig RN No [facility] 05-11-2014 Because of a physica l, mental, or emotional condition, do you have difficulty doing errands alone such as visiting a physician's office or shopping No 05/11/2014 1:16 PM EDT Bushra Koenig RN No [facility] Mental Status Date Assessment Result Facility 01-28-2025 Cognitive function Voice/Name [facility] Work Phone: 11-24-2024 Mental Status Orientation Oriented x 4 [facility] 11-16-2024 Cognitive function Voice/Name [facility] Work Phone: 02-21-2024 Mental Status Oriented x 4 [facility] 02-20-2024 Mental Status Oriented x 4 [facility] 02-11-2024 Mental Status Oriented x 4 [facility] 01-28-2024 Mental Status Orientation Oriented x 4 [facility] 01-28-2024 Mental Status [facility] 05-11-2014 Because of a physica l, mental, or emotional condition, do you have serious difficulty concentrating, remembering, or making decisions No 05/11/2014 1:16 PM EDT Bushra Koenig RN No [facility] Clinical Notes 12-17-2020 to 01-28-2025 Note Date & Type Note Facility 01-28-2025 Discharge summary [facility] 01-28-2025 Radiology Diagnostic study note [facility] Imaging Services [address] [place] [address] CTA Chest W/WO Contrast MR#: [id number] Acct: [id number] Name: KARINA FERNANDO Rep #: [id number] : 1950 F 74 From: Farhana Amezquita MD PCP: TORIBIO CASTILLO Status: REG ER Study:CTA Chest W/WO Contrast Date of Exam: 01/28/25 Exam# [id number] Ordering Dr: Bernarda Mckenna PROCEDURE: CTA CHEST [...] on 01/16/2025, as detailed above. Reading Location: [id number] CC: TORIBIO CASTILLO; RAJIV Meza ~ Drop Forger: Signed [facility] 01-28-2025 Radiology Diagnostic study note [facility] Imaging Services [address] [place] [address] Abdomen/Pelvis W IV Cont ONLY MR#: [id number] Acct: [id number] Name: KARINA FERNANDO Rep #: [id number] : 1950 F 74 From: Farhana Amezquita MD PCP: TORIBIO CASTILLO Status: REG ER Study:Abdomen/Pelvis W IV Cont ONLY Date of E xam: 01/28/25 Exam# [id number] Ordering Dr: Bernarda Mckenna PROCEDURE: ABDOMEN/PELVIS W [...] unchanged from CT performed 01/16/2025. Reading Location: [id number] CC: TORIBIO CASTILLO; RAJIV Meza ~ Drop Forger: Signed [facility] 01-28-2025 Discharge summary Note Date/Time January 28, 2025 10:17pm [facility] Medical Records Department [address] [place] [address] Emergency Department Summary 01/28/25 MR#: [id number] Acct: [id number] Name: KARINA FERNANDO Rep #:[id number] : 1950 74 From: Bernarda VANCE PCP: [...] chills, coughing, nausea, vomiting, and bowel changes. [facility] <RAJIV Meza - Last Filed: 01/28/25 21:59> [facility] Medical History Delayed surgical wound healing Constipation [...] 2.5 mg/3 mL 2.5 mg inhalation PRN IL N 09/22/24 11/16/24 History (0.083 %) solution [...] Hives Verified 01/28/25 17:44 tramadol HCl (From Ultra) Allergy Hives Verified 01/28/25 17:44 hydrochlorothiazide AdvReac [...] Room Air Oxygen Flow Rate (L/min) 3 [facility] <RAJIV Meza - Last Filed: 01/28/25 21:59> [facility] Narrative Medical decision making narrative: Patient presenting [...] % (Auto) 58.1 Lymph % (Auto) 24.7 Hayes % (Auto) 16.2 H Eos % (Auto) [...] Clarity Clear Urine pH 6.0 Ur Specific Olancha 1.020 Urine Protein 15 H Urine Glucose [...] unchanged from CT performed 01/16/2025. Reading Location: BRIANNA Chest CTA 01/28/25 18:52 IMPRESSION: 1. No pulmonary embolism or acute cardiopulmonary abnormality. 2. Unchanged findings from CT performed on 01/16/2025, as detailed above. Reading Location: [facility] EKG Initial EKG: Comments: Bpm, normal sinus rhythm, no ST elevation, interpreted by attending ED physician <Dr. Georgi Barroso, DO - Last Filed: 01/28/25 21:59> [facility] Lab Data Labs: Laboratory Results - last 24 hr 01/28/25 01/28/25 19:30 19:33 WBC 5.3 RBC 3.30 L Hgb 10.2 L Hct 31.2 L MCV 94.5 MCH 30.9 MCHC 32.7 RDW Std Deviation 76.0 H RDW Coeff of Juan David 21.9 H Plt Count 439 MPV 8.6 Immature Gran % (Auto) 0.400 Neut % (Auto) 58.1 Lymph % (Auto) 24.7 Hayes % (Auto) 16.2 H Eos % (Auto) [...] Clarity Clear Urine pH 6.0 Ur Specific Olancha 1.020 Urine Protein 15 H Urine Glucose [...] unchanged from CT performed 01/16/2025. Reading Location: [facility] Chest CTA 01/28/25 18:52 IMPRESSION: 1. No pulmonary embolism or acute cardiopulmonary abnormality. 2. Unchanged findings from CT performed on 01/16/2025, as detailed above. Reading Location: [id number] Treatment and Re-Evaluation :: ED attending note: [...] management plan. This note was generated with [employer] dictation software. It may contain incorrectwords, spelling, [...] worsening symptoms or other concerns. Print Language: Kosovan Disposition Disposition: Home, Self Care What to do if you have Problems For any increased pain, shortness of breath, bleeding, nausea or vomiting, chestpain, or any unexpected problems, contact your Primary Care Provider. Call [facility] ([phone]) or report to the closest Emergency Room. Call 911 if necessary. 01/28/252158 <Electronically signed by Bernarda VANCE> Cosigner Signature (if applicable): 01/28/252216 <Electronically signed by Georgi Barroso DO> CC: TORIBIO CASTILLO ~ Signed [facility] Work Phone: 1(431) 436-759807-01-2025 Radiology Diagnostic study note [facility] Imaging Services [address] [place], [place] [address] CT Chest, Abd, Pel w/Contrast MR#: [id number] Acct: [id number] Name: KARINA FERNANDO Rep #: [id number] : 1950 F 74 From: Yosef Moncada MD PCP: Dr. Tu Hector, DO Status: REG CLI Study:CT Chest, Abd, Pel w/Contrast Date of Haile marie: 01/16/25 Exam# [id number] Ordering Dr: Anayeli Stern NP [employer] [facility]-C PROCEDURE: CT CHEST, ABD, PEL W/CONTRAST 01/16/2025 [...] 6. Other findings as noted. Reading Location: [id number] CC: HOPE Win; Dr. Tu Hector, DO ~ Drop Forger: Signed [facility] Work Phone: 1(491) 635-896806-17-2025 Progress [facility] [address] [place] [address] OFFICE VISIT Date of Service: 01/02/25 0955 MR#: [id number] Acct: [id number] Name: KARINA FERNANDO Rep #: [id number] : 1950 From: Alis gilliam MD Age/Sex: 74/F Location: [facility] Status: Signed HPI Subjective Date of Service [...] etoposide and durvalumab October 31, 2024. [facility] Medical History Delayed surgical wound healing Constipation [...] canula Oxygen Flow Rate (L/min) 3 Intake General Service Technician Required: No Accompanied by: Self Is patient [...] 2.5 mg/3 mL 2.5 mg inhalation PRN IL N 09/22/24 01/02/25 History (0.083 %) solution [...] no focal motor deficits Coordination / Balance: qmkqja-pg-kvri test normal Speech: speech normal Gait (Neuro): [...] impression and plan discussed Alis Chance MD Industrial Technology Teacher, [facility] Divisions of Medical Oncology & Hematology Department of Internal Medicine [place] [id number] This note was generated using a voice [...] in the past year?: No 01/02/25 1020 mendy MYERS> Date _ Alis Chance MD Cosigner Signature: Date (if applicable) CC: ~ [facility]06-17-2025 Progress note Author Alis Chance [facility] Services Note Date/Time January 02, 2025 10:2 0am [facility] [address] [place] [address] OFFICE VISIT Date of Service: 01/02/25 0955 MR#: [id number] Acct: [id number] Name: KARINA FERNANDO Rep #: [id number] : 1950 From: Alis gilliam MD Age/Sex: 74/F Location: [facility] Status: Signed HPI Subjective Date of Service [...] etoposide and durvalumab October 31, 2024. [facility] Medical History Delayed surgical wound healing Constipation [...] canula Oxygen Flow Rate (L/min) 3 Intake General Service Technician Required: No Accompanied by: Self Is patient [...] 2.5 mg/3 mL 2.5 mg inhalation PRN IL N 09/22/24 01/02/25 History (0.083 %) solution [...] no focal motor deficits Coordination / Balance: iwbcox-ut-snqs test normal Speech: speech normal Gait (Neuro): [...] impression and plan discussed Alis Chance MD Industrial Technology Teacher, [facility] Divisions of Medical Oncology & Hematology Department of Internal Medicine [place] [address] This note was generated using a voice [...] Cosigner Signature: Date (if applicable) CC: ~ [facility] Work Phone: 1(608) 183-808205-09-2025 Hospital Discharge instructions Patient Education 11/24/2024 14:53:17 [...] wet, you can dry it with a hairmasters manager. You may use acetaminophen or ibuprofen to [...] or as directed by your healthcare provider [phone] [employer]. [address] [place] [address]. All rights reserved. This information is not [...] affected hand Decreased movement of the hand 8331-6344 [employer] [address] [place] [address], [place] [address]. All rights reserved. This information is not intended as a substitute for professional medical care. Always follow yourhealthcare professional's instructions. Follow Up Care 11/24/2024 13:54:15 With:BOB POOL MD Address: [facility] [place] [address] [phone] When:2-4 days With:TU HECTOR DO Address: [address] [place] [phone] When:2-4 days [facility] 05-09-2025 Emergency department Discharge summary Discharge Instructions Thank you for allowing [facility] to assist you with your healthcare needs. [...] with BOB POOL MD When:Within 2-4 days Where:[facility] [place] [address]- [phone] Follow Up with TU HECTOR DO When:Within 2-4 days Where:[address] [place] [address] [phone] Allergies Ceclor Hives Fosamax Swelling / lump [...] wet, you can dry it with a hairmasters manager. You may use acetaminophen or ibuprofen to control pain, unless another pain medicine was prescribed. If you have chronic liver or kidney disease, talk with your healthcare provider before using thesemedicines. Also talk with your provider if you ve had a stomach ulcer or gastrointestinal bleeding. If genessi tape was applied and it becomes wet [...] or as directed by your healthcare provider [phone] [employer] [address] [place] [address]. All rights reserved. This information is not [...] affected hand Decreased movement of the hand 3080-3917 [employer] [address] [place] [address]. All rights reserved. This information is not intended as a substitute for professional medical care. Always follow yourhealthcare professional's instructions. Additional Information VACCINATE! IT SAVES LIVES! Members of the community who have not yet received the COVID-19 vaccine and would like to receive it can visit one of [facility] vaccine clinics. There are many vaccine clinic locations within the [facility]. For locations and available times, please visit www.[email or web address].[place].gov/. It is important to note that some COVID mobile vaccine clinics are held outdoors and may be canceled in rainy or stormy conditions. To learn more about pediatric vaccinations (ages 5-11), we invite you to visit the [employer] webpage. [email or web address]/[email or web address]-Osuko-[email or web address] stions.htmlTo learn more about the COVID-19 vaccine, we invite you to visit the CDC website for a list of frequently asked questions. https://www.cdc.gov/coronavirus/2019-ncov/vaccines/faq.html [employer] Patient Portal Access Instructions: Stay connected with your healthcare team and access your personal medical information anytime with the [employer] Patient Portal. If you would like a full copy of your medical records please contact the [facility] Medical Records Department Wednesday through Wednesday between 8a.m. and 4:30p.m. Please follow the directions below to access the portal: 1.Access the email account you provided upon registration to the hospital.2.Look for an invitation email from [facility].3.Open the email and access the invitation link: Accept Invitation to [employer]4.Fill in the required abbasi to create your account. Sign into [email or web address] with your username and password that you [...] you will allow to register on the [employer] Patient Portal for access to your information. You can also access the [employer] Patient Portal on the [employer] chica. Simply click on Health Records under [employer] and then click on the [employer] logo. HOW TO SAFELY DISPOSE OF PRESCRIPTION [...] Call your local pharmacy or go to [email or web address] to find one close to you.3.Make use of household items: Use cat litter or old coffee grounds to dispose medications if other options arenot available. Mix your drugs with these household products, seal them in an airtight container andthrow it into the garbage. Call [facility]: [phone] to be sure your drugs can be [...] aware that I should contact my doctor. Patient/Log Chain Feeder Signature: Date/Time: Relationship to Patient: Witness Name/Signature: Date/Time: [id number] Note* Exam Date Time Procedure Performing Provider Status 11/24/24 3:26 PM XR Finger Thumb 3 Views Left ROB GRIGSBY MD; Auth (Verified) [id number] ORIGINAL EXAMINATION: THREE XRAY VIEWS OF THE [...] Date: 11/24/2024 3:30:21 PM Ordering Provider: WILBUR [facility]05-01-2025 [facility]04-17-2025 Telephone encounter Note* Telephone Encounter - Shante Kirk MA - 11/02/2024 12:40 PM EDT [id number] Miscellaneous Notes* Telephone Encounter - Shante Kirk MA - 11/02/2024 12:40 PM EDT Faxed office note to [facility] * Telephone Encounter - NEGIN Petty CNP - 11/01/2024 5:02 PM EDT Phone call to patient Daughter, ( patient is not able to speak on the phone due to vocal cord paralysis and tumor compression ), 2 weeks ago, her HCTZ was stopped by [facility], due to dehydration and hypotension. She [...] daughter would like to establish with a executive director in [place]. Patient is monitoring her BP at home, and will call her daughter, ( who is at work now) if BP drops. She willcontact the marketing research coordinator to see if she can arrange [...] Daughter states chemo staff said to call executive director. She is not sure if oncologist or [...] yesterday. Chemo staff wanted pt to call executive director pt has edema in ankles. documented in this [place] [address]-16-2025 Telephone encounter Note* Telephone Encounter - NEGIN Petty CNP - 11/01/2024 5:02 PM EDT Phone call to patient Daughter, ( patient is not able to speak on the phone due to vocal cord paralysis and tumor compression ), 2 weeks ago, her HCTZ was stopped by [facility], due to dehydration and hypotension. She [...] daughter would like to establish with a executive director in [place]. Patient is monitoring her BP at home, and will call her daughter, ( who is at work now) if BP drops. She willcontact the marketing research coordinator to see if she can arrange Cardiology to see her tomorrow while at the infusion center. She will keep us updated. [facility] Work Phone: 1(863) 248-528704-16-2025 Miscellaneous Notes* Telephone Encounter - NEGIN Petty CNP - 11/01/2024 5:02 PM EDT Phone call to patient Daughter, ( patient is not able to speak on the phone due to vocal cord paralysis and tumor compression ), 2 weeks ago, her HCTZ was stopped by [facility], due to dehydration and hypotension. She [...] daughter would like to establish with a executive director in [place]. Patient is monitoring her BP at home, and will call her daughter, ( who is at work now) if BP drops. She willcontact the marketing research coordinator to see if she can arrange [...] Daughter states chemo staff said to call executive director. She is not sure if oncologist or [...] yesterday. Chemo staff wanted pt to call executive director pt has edema in ankles. [facility] [id number] Telephone encounter Note* Telephone Encounter - Shante Kirk MA - 11/01/2024 3:44 PM EDT Daughter called back she spoke to oncologist and oncologist is more comfortable if we deal with this. [place] [id number] Telephone encounter Note* Telephone Encounter - Lenore Ambrosio RN - 11/01/2024 1:17 PM EDT I spoke with daughter pt having increase BOWMAN/ up 7 #s/b/l lower extremity edema after having 2 chemo treatments. Daughter states chemo staff said to call executive director. She is not sure if oncologist or his office is aware. I asked her to check with them first regarding the symptoms she is having. The care will be directed by them. She will call back after she makes sure the oncologist is aware. [id number] Telephone encounter Note* Telephone Encounter - Shante Kirk MA - 11/01/2024 11:13 AM EDT Daughter calling pt is new to chemo having second treatment today. She has gained 7# since yesterday. Chemo staff wanted pt to call executive director pt has edema in ankles. [place] [id number] Telephone encounter Note* Telephone Encounter - Aixa Roche RCP - 10/27/2024 2:17 PM EDT Reviewed clinisync and confirmed that patient ws able to establish with [facility] on 10/26/24. Beginning treatment 10/31/24. [id number] Miscellaneous Notes* Telephone Encounter - Aixa Roche RCP - 10/27/2024 2:17 PM EDT Reviewed clinisync and confirmed that patient ws able to establish with [facility] on 10/26/24. Beginning treatment 10/31/24. * Telephone Encounter - Aixa Roche RCP - 10/24/2024 10:49 AM EDT Received call from Alee, Combat Systems Officer at [facility]. Per Alee, they are aware patient now has oncology appt in [place], but they are tryoing to have her seen at [place] sooner. Right faxed MRI brain and PET reports to providers at [place] in case she returns to them for [...] Lacho Kamara placed the recommended referral to [facility] medical oncology. Navigator spoke directly with wic site coordinator and medical oncology provider office and stressed urgency of appointment follow-up. substance abuse prevention coordinator and medical oncology discussed directly with oncologist at [facility]. They are unable to offer Karina an appointment sooner than previously scheduled with her [place] oncology team. Navigator apologized to family and recommended they keep previously scheduled [place] oncology appointment. Patient will see Dr. Dunham 11/01/24 per daughter. Records have been sent to [place] and PET and MRI will also be sent when reports are final. Family has navigator contact info and will call if they need assistance. * Telephone Encounter - Aixa Roche RCP - 10/18/2024 11:[address] referral for medical oncology to [facility]. Navigator spoke with wic site coordinator and medical oncology office. She will discuss with oncology providers tomorrow morning to stress the urgency of appointment and attempt to expedite appointment. If unable to get patient in sooner than [place], navigator will advise patient to keep previously scheduled oncology follow-up. Daughter notified. * Telephone Encounter - Aixa Roche RCP - 10/18/2024 8:33 AM EDT Navigator received callback from patient's daughter Diaz. Patient's daughter reports that since we are able to expedite MRI and PET scan, oncology appointment has been moved up to 10/31/2024, but this is just tentative appointment as [place] and may not be back until 11/06/2024. Daughter would like Dr. Lacho Kamara to review and is willing to transfer care for oncology [facility] if pulmonary provider feels sooner oncology [...] to patient's regular oncologist, Dr. Dunham and hand finisher Rhiannon Georges in [place]. Patient has medical oncology appointment 11/06/24 but will try to move appointment sooner after PET scan. Navigator will send PET and MRI reports to providers once final . documented in this [facility]04-10-2025 History of Present illness Narrative* Joselyn Tucker MD - 10/26/2024 10:20 AM EDT . ENDOCRINOLOGY [address] [place] [address] Dept: [phone] Dept Visit type: New patient Reason for [...] capsule by mouth daily., Disp: , Rfl: Currie-3 Fatty Acids (OMEGA 3 500 PO), Take [...] visit. Joselyn Tucker MD documented in this [facility]SPrem[facility] [id number] Evaluation note* Diagnosis Multinodular goiter (nontoxic)- Primary Nontoxic multinodular goiter Stage 3a chronic kidney disease (HCC) documented in this encounter [id number] Evaluation note* Diagnosis Onset Date Resolution Status [...] Small cell lung cancer chronic 2024 9:03am [facility] Work Phone: 1(871) 493-942304-08-2025 Telephone encounter Note* Telephone Encounter - NEGIN Johnson CNP - 10/24/2024 11:26 AM EDT Case reviewed - advanced small cell lung cancer *The patient's OARRS report was obtained and reviewed.* [place] [id number] Miscellaneous Notes* Telephone Encounter - NEGIN Johnson CNP - 10/24/2024 11:26 AM EDT Case reviewed - advanced small cell lung cancer *The patient's OARRS report was obtained and reviewed.* * Telephone Encounter - Alayna Kaplan - 10/24/2024 11:[address] Fortune, pt needs a prescription sent for percocet 5/325mg, 1 tab Q6 hours PRN. documented in this encounterSPremier [facility] [id number] Telephone encounter Note* Telephone Encounter - Alayna Kaplan - 10/24/2024 11:[address] Fortune, pt needs a prescription sent for percocet 5/325mg, 1 tab Q6 hours PRN. [address] [id number] Telephone encounter Note* Telephone Encounter - Aixa Roche RCP - 10/24/2024 10:49 AM EDT Received call from [employer]lee [employer] Officer at [facility]. Per Alee, they are aware patient now has oncology appt in [place], but they are tryoing to have her seen at [place] sooner. Right faxed MRI brain and PET reports to providers at [place] in case she returns to them for oncology care. Also requested images be pushed to provider. [facility] [id number] Miscellaneous Notes* Telephone Encounter - Aixa Roche RCP - 10/24/2024 10:49 AM EDT Received call from Alee [employer] Officer at [facility]. Per Alee, they are aware patient now has oncology appt in [place], but they are tryoing to have her seen at [place] sooner. Right faxed MRI brain and PET reports to providers at [place] in case she returns to them for [...] Lacho Kamara placed the recommended referral to [facility] medical oncology. Navigator spoke directly with wic site coordinator and medical oncology provider office and stressed urgency of appointment follow-up. substance abuse prevention coordinator and medical oncology discussed directly with [facility]ologist [facility]. They are unable to offer Karina an appointment sooner than previously scheduled with her [place] oncology team. Navigator apologized to family and recommended they keep previously scheduled [place] oncology appointment. Patient will see Dr. Dunham 11/01/24 per daughter. Records have been sent to [place] and PET and MRI will also be sent when reports are final. Family has navigator contact info and will call if they need assistance. * Telephone Encounter - Aixa Roche RCP - 10/18/2024 11:[address] referral for medical oncology to [facility]. Navigator spoke with wic site coordinator and medical oncology office. She will discuss with oncology providers tomorrow morning to stress the urgency of appointment and attempt to expedite appointment. If unable to get patient in sooner than [place], navigator will advise patient to keep previously scheduled oncology follow-up. Daughter notified. * Telephone Encounter - Aixa Roche RCP - 10/18/2024 8:33 AM EDT Navigator received callback from patient's daughter Diaz. Patient's daughter reports that since we are able to expedite MRI and PET scan, oncology appointment has been moved up to 10/31/2024, but this is just tentative appointment as her oncology provider [facility] is out of town and may not be back until 11/06/2024. Daughter would like Dr. Lacho Kamara to review and is willing to transfer care for oncology [facility] if pulmonary provider feels sooner oncology [...] to patient's regular oncologist, Dr. Dunham and hand finisher Rhiannon Georges in [place]. Patient has medical oncology appointment 11/06/24 but will try to move appointment sooner after PET scan. Navigator will send PET and MRI reports to providers once final . documented in this [facility]04-08-2025 History of Present illness Narrative* Silvio Fortune MD - 10/24/2024 10:43 AM EDT OARRS reviewed documented in this [facility]04-08-2025 NoteDrJosh Fortune discussed patient with Dr. Worrell. Expedited referral arranged, pt is scheduled to see Dr. Jerry on Wednesday10/27/24 at 0800. Pt and daughter are aware of appointment.[facility]04-08-2025 Telephone encounter Note * Telephone Encounter - Alayna Kaplan - 10/24/2024 9:[address] Fortune discussed patient with Dr. Worrell. Expedited referral arranged, pt is scheduled to see Dr. Jerry on Wednesday10/27/24 at 0800. Pt and daughter are aware of appointment. [facility] [id number] History of Present illness Narrative* Silvio Fortune MD - 10/24/2024 9:30 AM EDT Images from the original note were not included. [facility] CARDIOVASCULAR & THORACIC SURGERY [address] [facility] [address] Dept: [phone] Dept Loc: [phone] Patient was identified and seen today via [...] stated that they are currently in the [facility]. If the patient is a minor, [...] etiology. Per note, pt had presented to [place] ED in August 2023 for dyspnea. CTA [...] consistent with malignancy. Patient was hospitalized at [facility] on 10/05/24 for shortness of breath, then transferred to [facility] for ongoing care. An US guided thoracentesis [...] follow with her oncologist Dr. Chance in [place]. MRI brain on 10/17/24 was normal. PET [...] patient also completed a thyroid biopsy at [place] and pathologyis still pending/unavailable. Pt is a [...] capsule by mouth daily., Disp: , Rfl: Currie-3 Fatty Acids (OMEGA 3 500 PO), Take [...] TISSUE. Please see associated cytology specimen ([id number]). Cytology 10/09/24 Final Diagnosis A - Mediastinal [...] This note may have been dictated using [employer] Practice Edition 2.6 and/or 2threads Voice Recognition Feature. The document was proofread, however unrecognized voice recognition primary care provider errors may be present. documented in this [facility]04-05-2025 Discharge summary [facility] Medical Records Department [address] [place] [address] Emergency Department Summary 10/21/24 MR#: [id number] Acct: [id number] Name: KARINA FERNANDO Rep #:[id number] : 1950 73 From: Tay Dumont MD PCP: Dr. Tu Hector DO Status:[facility] ER Location: ED HPI History of Present [...] had a recent admission and transfer to [facility] and her daughter states that when shewas [...] blood pressure medication according to her daughter. [facility] Medical History COPD (chronic obstructive pulmonary disease) [...] 2.5 mg/3 mL 2.5 mg inhalation PRN IL N 09/22/24 Unknown History (0.083 %) solution [...] Hives Verified 10/21/24 15:06 tramadol HCl (From [facility]) Allergy Hives Verified 10/21/24 15:06 erythromycin base [...] pulmonary embolism. She had been transferred [facility] at the end of last month, [...] they found that when she was at [facility] and recently discharged, stating that it was [...] 70.7 H Lymph % (Auto) 16.1 L Hayes % (Auto) 12.4 H Eos % (Auto) [...] mucous plug or other etiology Reading [facility] Dis[facility] Triage Chief Complaint: Shortness of [...] directed. Follow-up with your oncologist. Print Language: Kosovan Disposition Disposition: Home, Self Care What to do if you have Problems For any increased pain, shortness of breath, bleeding, nausea or vomiting, chestpain, or any unexpected problems, contact your Primary Care Provider. Call [facility] ([phone]) or report tothe closest Emergency Room. Call 911 if necessary. 10/21/24 1645 Cosigner Signature (if applicable): CC: Dr. Tu Hector DO ~ Signed [facility]04-05-2025 Radiology Diagnostic study note [facility] Imaging Services [address] [place] [address] Chest 1 View (Portable) MR#: [id number] Acct: [id number] Name: KARINA FERNANDO Rep #: [id number] : 1950 F 73 From: Pet er Peer PCP: Dr. Tu Hector DO Status: REG ER Study:Chest 1 View (Portable) Date of Exam: 10/21/24 Exam# [id number] Ordering Dr: Tay Dumont MD PROCEDURE: CHEST [...] mucous plug or other etiology Reading Location: [facility] CC: Dr. Tay Dumont MD; Dr. Tu Hector DO ~ Drop Forger: Signed [facility]04-05-2025 Discharge summary Author Tay Dumont [facility] Note Date/Time October 21, 2024 4:45 pm [facility] Medical Records Department [address] [place] [address] Emergency Department Summary 10/21/24 MR#: [id number] Acct: [id number] Name: KARINA FERNANDO Rep #:[id number] : 1950 73 From: Tay Dumont MD [...] had a recent admission and transfer to [facility] and her daughter states that when she [...] blood pressure medication according to her daughter. [facility] Medical History COPD (chronic obstructive pulmonary disease) [...] 2.5 mg/3 mL 2.5 mg inhalation PRN IL N 09/22/24 Unknown History (0.083 %) solution [...] pulmonary embolism. She had been transferred [facility] at [facility] end of last month, [...] they found that when she was at [facility] and recently discharged, stating that it was [...] 70.7 H Lymph % (Auto) 16.1 L Hayes % (Auto) 12.4 H Eos % (Auto) [...] mucous plug or other etiology Reading Location: [facility] Discharge Plan Triage Chief Complaint: Shortness of [...] directed. Follow-up with your oncologist. Print Language: Kosovan Disposition Disposition: Home, Self Care What to do if you have Problems For any increased pain, shortness of breath, bleeding, nausea or vomiting, chestpain, or any unexpected problems, contact your Primary Care Provider. Call [facility] ([phone]) or report to the closest Emergency Room. Call 911 if necessary. 10/21/24 1645 <Electronically signed by Tay Dumont MD> Cosigner Signature (if applicable): CC: Dr. Tu Hector, ~ Signed [facility] Work Phone: 1(127) 201-372804-03-2025 NoteDrJosh Kamara placed the recommended referral to [facility]. Navigator spoke directly with wic site coordinator and medical oncology provider office and stressed urgency of appointment follow-up. substance abuse prevention coordinator and medical oncology discussed directly with oncologist at [facility]. They are unable to offer Karina an appointment sooner than previously scheduled with her [place] oncology team. Navigator apologized to family and recommended they keep previously scheduled [place] oncology appointment. Patient will see Dr. Dunham 11/01/24 per daughter. Records have been sent to [place] and PET and MRI will also be sent when reports are final. Family has navigator contact info and will call if they need assistance.[facility] [id number] Telephone encounter Note* Telephone Encounter - Aixa Roche RCP - 10/19/2024 12:[address] Lacho Kamara placed the recommended referral to [facility]ology. Navigator spoke directly with wic site coordinator and medical oncology provider office and stressed urgency of appointment follow-up. substance abuse prevention coordinator and medical oncology discussed directly with oncologist at [facility]. They are unable to offer Karina an appointment sooner than previously scheduled with her [place] oncology team. Navigator apologized to family and recommended they keep previously scheduled [place] oncology appointment. Patient will see Dr. Dunham 11/01/24 per daughter. Records have been sent to [place] and PET and MRI will also be sent when reports are final. Family has navigator contact info and will call if they need assistance. [facility] HospitalCvkegp84-26-7437 Miscellaneous Notes* Telephone Encounter - Aixa Roche RCP - 10/19/2024 12:[address] Lacho Kamara placed the recommended referral to [facility] medical oncology. Navigator spoke directly with wic site coordinator and medical oncology provider office and stressed urgency of appointment follow-up. substance abuse prevention coordinator and medical oncology discussed directly with oncologist at [facility]. They are unable to offer Karina an appointment sooner than previously scheduled with her [place] oncology team. Navigator apologized to family and recommended they keep previously scheduled [place] oncology appointment. Patient will see Dr. Dunham 11/01/24 per daughter. Records have been sent to [place] and PET and MRI will also be sent when reports are final. Family has navigator contact info and will call if they need assistance. * Telephone Encounter - Aixa Roche RCP - 10/18/2024 11:[address] referral for medical oncology to [facility]. Navigator spoke with wic site coordinator and medical oncology office. She will [...] just tentative appointment [place] and may not be back until 11/06/2024. Daughter would like Dr. Lacho Kamara to review and is willing to transfer care for oncology [facility] if pulmonary provider feels sooner oncology [...] to patient's regular oncologist, Dr. Dunham and hand finisher Rhiannon Georges in [place]. Patient has medical oncology appointment 11/06/24 but will try to move appointment sooner after PET scan. Navigator will send PET and MRI reports to providers once final . documented in this [facility]04-02-[address] for medical oncology to [facility]. Navigator spoke with wic site coordinator and medical oncology office. She will discuss with oncology providers tomorrow morning to stress the urgency of appointment and attempt to expedite appointment. If unable to get patient in sooner than [place], navigator will advise patient to keep previously scheduled oncology follow-up. Daughter notified.[facility]04-02-2025 Telephone encounter Note* Telephone Encounter - Aixa Roche RCP - 10/18/2024 11:[address] referral for medical oncology to [facility]. Navigator spoke with wic site coordinator and medical oncology office. She will discuss with oncology providers tomorrow morning to stress the urgency of appointment and attempt to expedite appointment. If unable to get patient in sooner than [place], navigator will advise patient to keep previously scheduled oncology follow-up. Daughter notified. [facility] HospitalEtvvdq69-03-0808 Telephone encounter Note* Telephone Encounter - Aixa Roche RCP - 10/18/2024 8:33 AM EDT Navigator received callback from patient's daughter Diaz. Patient's daughter reports that since we are able to expedite MRI and PET scan, oncology appointment has been moved up to 10/31/2024, but this is just tentative appointment as [place] and may not be back until 11/06/2024. Daughter would like Dr. Lacho Kamara to review and is willing to transfer care for oncology [facility] if pulmonary provider feels sooner oncology appointment for small cell is needed. [facility] [id number] Telephone encounter Note* Telephone Encounter - Aixa Roche RCP - 10/17/2024 2:10 PM EDT Navigator contacted patient's daughter by phone. They would like first available PET scan at any location. She is currently scheduled 10/30/24. Moved up PET scan appointment to Faxed records including path report, thoracentesis report, thoracic conference recommendations, CTSand pulmonary and cardiology consults to patient's regular oncologist, Dr. Dunham and hand finisher Rhiannon Georges in [place]. Patient has medical oncology appointment 11/06/24 but will try to move appointment sooner after PET scan. Navigator will send PET and MRI reports to providers once final . [facility] [id number] History of Present illness Narrative* Rachel Miller Anh, DO - 10/17/2024 11:30 AM EDT [facility] Pulmonary Critical Care Medicine [address] [place], [place] [id number] Pulmonary Patient Visit 10/17/2024 Referring Physician: TU HECTOR DO Reason for Referral: SOB 10/03/24 History of Present Illness Karina Fernando is a 73 y.o. F with history of recurrent sinus infections, COPD on symbicort/albuterol,HTN who presented for a left hilar mass. Stated that in May she began having shortness of breath which worsened until she went to the ER in [place] in August. Found on CT with a left hilar mass, left upper lobe pleural-based mass, and moderate pericardial effusion. Evaluated by oncology and recommended for PET/CT, MRI brain, and biopsy. Established with pulmonology and had been planned forEBUS in [place] but canceled after TTE demonstrated a right [...] Previously normal 10/17/24 Patient was hospitalized in [place] ER for worsening pain and shortness of breath, unchanged. Transferred to [facility]. S/p bronchoscopy 10/09/[address] Mejia. Reported [...] Dose Status acetaminophen (Tylenol) 325 MG tablet [id number] Take 2 tablets (650 mg) by mouth every 6 hours as needed for mild pain (1-3) or fever (For temp greater than 100.4 F (38 C)) for up to 10 days. Patient not taking: Reported on 10/09/2024 Emile Horne DO 10/16/24 235 albuterol (Ventolin HFA) 108 (90 Base) MCG/ACT inhaler [id number] Yes Inhale 2 puffs every 4 hours as needed for wheezing or shortness of breath. Rachel Johnson DO Active ALPRAZolam (Xanax) 0.5 MG tablet [id number] Take 1 tablet (0.5 mg) by mouth 1 time for 1 dose. Take 30 minutes prior to MRI Lisandra Aldridge APRN - MARIA G 10/10/24 235 Discontinued 10/17/24 1119 budesonide-formoterol (Symbicort) 80-4.5 MCG/ACT inhaler [id number] Inhale 2 puffs 2 times daily. Rachel Johnson DO Active busPIRone (Buspar) 10 MG tablet [id number] Yes Take 10 mg by mouth 3 times daily as needed. Historical Provider, Active cholecalciferol (Vitamin D-3) 25 MCG (1000 UT) capsule [id number] Yes Take 1,000 Units by mouth daily. Historical Provider, Active ipratropium-albuterol (Duo-Neb) 0.5-2.5 mg/3 mL nebulizer solution [id number] Yes Take 3 mL by nebulization every 6 hours. Historical ProviderMD Active loratadine (Claritin) 5 MG chewable tablet [id number] Yes Chew 5 mg daily. Historical ProviderMD Active Melatonin 2.5 MG chewable tablet [id number] Yes Chew Daily as needed. Historical ProviderMD Active Multiple Vitamin (multivitamin) capsule [id number] Yes Take 1 capsule by mouth daily. Historical ProviderMD Active Currie-3 Fatty Acids (OMEGA 3 500 PO) [id number] Yes Take by mouth daily. Historical ProviderMD Active oxyCODONE-acetaminophen (Percocet) 7.5-325 MG tablet [id number] Take 1 tablet by mouth every 6 hoursas needed for moderate pain (4-6) for up to 5 days. Emile Horne, DO 10/11/24 2359 traZODone (Desyrel) 100 MG tablet [id number] Yes Take 100 mg by mouth Nightly. Historical ProviderMD Active valACYclovir (Valtrex) 500 MG tablet [id number] Yes Take by mouth daily. Historical ProviderMD Active Vitamin E 268 MG (400 UNIT) capsule [id number] Yes Take by mouth daily. Historical Provider, [...] Follow up: Patient will follow-up with her hand finisher and oncologist in [place] Please seek immediate medical attention for any worsening or worrying new symptoms. Patient education, benefits, risks, and precautions provided. Management plan was discussed in detail and in agreement. All questions or concerns answered to satisfaction and understood. Rachel Johnson DO 12:27 PM 10/17/24 Pulmonary and Critical Care Medicine documented in this [facility]04-01-2025 Instructions* Patient Instructions* Domenica Webb MA - 10/17/2024 11:30 AM EDT YOUR APPOINTMENT TODAY WAS WITH THE [facility] LUNG NODULE [facility], COPD CLINIC, PULMONARY AND SLEEP MEDICINE OFFICE. PLEASE CALL OUR OFFICE AT [phone] IF YOU HAVE NOT RECEIVED YOUR TEST [...] to make improvements. COVID-19 VACCINATION INFORMATION: PH. [phone] [email or web address] [facility] Central Scheduling [phone] [facility] Sleep Scheduling [phone] documented in this [facility]04-01-2025 History of Present illness Narrative* Aixa [...] do recommendations for candace CTC: SK MR#/Epic [id number] Oncologist: Dr. Mauri Chance ([place]) CTAP: /Age [birth year] 73 yo Rad Oncologist MRI: 10/17/24 Gender Female Rivet Catcher: Dr. Lacho Kamara/ [facility] PET: 10/30/24 Smoking History: ? Former 40 pk yr Quit 05/2024 PCP: Dr. Tu Hector PFT: 09/25/24 @ [facility] ?Prospective []Retrospective Bathroom Tiling Professional: Dr. Luis PATH: EBUS/TBBX 10/09/24; US Thora 10/06/24; Thyroid bx- [place] 10/10/24 (path pending) Clinical Stage: unable to stage : @ least N2 dz Path Stage: T N M Barium Swallow 10/06/24 Brief Summary Known COPD was seen in ED at [place] for eval of worsening SOB, Left shoulder, back, and lung pain, and dizziness. CT in [place] noted a left hilar mass, LEYLA mass and adenopathy, R atrial mass, pericardial effusion and thyroid nodules. Evaluated by [place] med onc and recommended to have PET, MRI and biopsy. Sent to [facility] CTS and arranged same day urgent appts with pulmonary and cardiology. Sent for EBUS and now presents to review imaging, path, staging and plan of care. * Also completed thyroid bx @ [place] and path results are pending Recommendations: 1. [...] differ from this recommendation. documented in this [facility]03-27-2025 NotePatient: Karina Fernando Procedure Summary Date: 10/09/24 Room / Location: [place] [address] / [facility] Gastroenterology Anesthesia Start: 1439 Anesthesia Stop: 1542 [...] discharged once all PACU criteria has been met.[facility]03-27-2025 NotePatient: Karina Fernando Procedure Summary Date: 10/09/24 Room / Location: [place] [address] / [facility] Gastroenterology Anesthesia Start: 1438 Anesthesia Stop: 154 Procedure: ENDOBRONCHIAL ULTRASOUND WITH [...] Allowed opportunity for questions and acknowledgement of understanding.[facility]03-25-2025 Radiology Diagnostic study note [facility] Imaging Services [address] [place] [address] [id number] FNA 1st Biopsy w/ US MR#: [id number] Acct: [id number] Name: KARINA FERNANDO Rep #: [id number] : 1950 F 73 From: Jonas James MD PCP: Dr. Tu Hector DO Status: [facility] Study:FNA 1st Biopsy w/ US Date of Exam: 10/10/24 Exam# [id number] Ordering Dr: Jackelyn Hector DO EXAM: Ultrasound [...] biopsy. Multinodular goiter is noted. Reading Location: [facility] CC: Dr. Tu Hector, DO ~ Drop Forger: Signed [facility]03-24-2025 NoteAirway Date/Time: 10/09/2024 2:43 PM Urgency: scheduled Airway not difficult General Information and Staff Patient location during procedure: Procedural Resident/MANAGER OPERATIONS: Mello Schneider CRNA Performed: MANAGER OPERATIONS Indications and Patient Condition Indications for airway [...] attempts: none Number of other approaches attempted: [address] [place], [place] [address]2903-24-[address] [facility] Patient Name: Karina Fernando Procedure Date: 10/09/2024 2:23 PM Gender: Female Date of : 1950 Age: 73 Admit Type: Outpatient Note Status: Finalized Attending MD: Cain Mejia MD, [id number] Procedure: Bronchoscopy Indications: Left hilar mass Findings: [...] and in the left hilum using a QingKe Expect 25 gauge needle and sent for [...] loss: Minimal Procedure Code(s): --- Professional --- 13173, Bronchoscopy, rigid or flexible, including fluoroscopic guidance, when performed; with transbronchial needle aspiration biopsy(s), trachea, main stem and/or lobar bronchus(i) 75525, 59, Bronchoscopy, rigid or flexible, including fluoroscopic guidance, when performed; with bronchial or endobronchial biopsy(s), single or multiple sites 68115, Bronchoscopy, rigid or flexible, including fluoroscopic guidance, when performed; with bronchial alveolar lavage 34783, Bronchoscopy, rigid or flexible, including fluoroscopic guidance, when performed; with brushing or protected brushings 35172, Bronchoscopy, rigid or flexible, including fluoroscopic guidance, when performed; with transendoscopic endobronchial ultrasound (EBUS) during bronchoscopic diagnostic or therapeutic intervention(s) for peripheral lesion(s) (List separately in addition to code for primary procedure[s]) Diagnosis Code(s): --- Profession (more content not included)...[facility]03-24-2025 Procedure note* Op Note - Cain Mejia MD - 10/09/2024 2:23 PM EDT [facility] Patient Name: Karina Fernando Procedure Date: 10/09/2024 2:23 PM Gender: Female Date of : 1950 Age: 73 Admit Type: Outpatient Note Status: Finalized Attending MD: Cain Mejia MD, [id number] Procedure: Bronchoscopy Indications: Left hilar mass Findings: [...] and in the left hilum using a QingKe Expect 25 gauge needle and sent for [...] loss: Minimal Procedure Code(s): --- Professional --- 40123, Bronchoscopy, rigid or flexible, including fluoroscopic guidance, when performed; with transbronchial needle aspiration biopsy(s), trachea, main stem and/or lobar bronchus(i) 08275, 59, Bronchoscopy, rigid or flexible, including fluoroscopic guidance, when performed; with bronchial or endobronchial biopsy(s), single or multiple sites 16564, Bronchoscopy, rigid or flexible, including fluoroscopic guidance, when performed; with bronchial alveolar lavage 88290, Bronchoscopy, rigid or flexible, including fluoroscopic guidance, when performed; with brushing or protected brushings 14190, Bronchoscopy, rigid or flexible, including fluoroscopic guidance, when performed; with transendoscopic endobronchial ultrasound (EBUS) during bronchoscopic diagnostic or therapeutic intervention(s) for peripheral lesion(s) (List separately in addition to code for primary procedure[s]) Diagnosis Code(s): --- Professional --- R91.8, Other nonspecific abnormal finding of lung field J98.4, Other disorders of lung J98.09, Other diseases of bronchus, not elsewhere classified R04.2, Hemoptysis CPT copyright 2021 [employer]. All rights reserved. The codes documented in this report are preliminary and upon director custom review may be revised to meet current compliance requirements. Attending Participation: I personally performed the entire procedure. Cain Mejia MD 10/09/2024 3:46:37 PM This report has been signed electronically. Number of Addenda: 0 Note Initiated On: 10/09/2024 2:23 PM [facility]wavda55-56-0811 Miscellaneous Notes* Op Note - Cain Mejia MD - 10/09/2024 2:23 PM EDT [facility] Patient Name: Karina Fernando Procedure Date: 10/09/2024 2:23 PM Gender: Female Date of : 1950 Age: 73 Admit Type: Outpatient Note Status: Finalized Attending MD: Cain Mejia MD, [id number] Procedure: Bronchoscopy Indications: Left hilar mass Findings: [...] and in the left hilum using a QingKe Expect 25 gauge needle and sent for [...] loss: Minimal Procedure Code(s): --- Professional --- 85330, Bronchoscopy, rigid or flexible, including fluoroscopic guidance, when performed; with transbronchial needle aspiration biopsy(s), trachea, main stem and/or lobar bronchus(i) 21249, 59, Bronchoscopy, rigid or flexible, including fluoroscopic guidance, when performed; with bronchial or endobronchial biopsy(s), single or multiple sites 19706, Bronchoscopy, rigid or flexible, including fluoroscopic guidance, when performed; with bronchial alveolar lavage 81326, Bronchoscopy, rigid or flexible, including fluoroscopic guidance, when performed; with brushing or protected brushings 68336, Bronchoscopy, rigid or flexible, including fluoroscopic guidance, when performed; with transendoscopic endobronchial ultrasound (EBUS) during bronchoscopic diagnostic or therapeutic intervention(s) for peripheral lesion(s) (List separately in addition to code for primary procedure[s]) Diagnosis Code(s): --- Professional --- R91.8, Other nonspecific abnormal finding of lung field J98.4, Other disorders of lung J98.09, Other diseases of bronchus, not elsewhere classified R04.2, Hemoptysis CPT copyright 2021 [employer]. All rights reserved. The codes documented in this report are preliminary and upon director custom review may be revised to meet current compliance requirements. Attending Participation: I personally performed the entire procedure. Cain Mejia MD 10/09/2024 3:46:37 PM This report has been signed electronically. Number of Addenda: 0 Note Initiated On: 10/09/2024 2:23 PM documented in this [facility]03-24-2025 History and physical note* Cain Mejia [...] lymph nodes, sampling/staging, sampling of hilar mass. [employer] Work Phone: 1(927) 904-353303-24-2025 NoteChief Complaint: left hilar mass History of [...] lymph nodes, sampling/staging, sampling of hilar mass. [facility]03-24-2025 History and physical note* Cain [...] sampling of hilar mass. documented in this [facility]03-24-2025 NotePatient: Karina Fernando Procedure Information Date/Time: 10/09/24 1330 Procedure: ENDOBRONCHIAL ULTRASOUND WITH TRANSBRONCHIAL NEEDLE ASPIRATION. POSSIBLE ENDOBRONCHIAL BIOPSIES, NEEDLE ASPIRATION, AND BRUSHINGS. - Rad, path, total time: 90 min Location: [place] [address] / [facility] Gastroenterology Providers: Cain Mejia MD Relevant Problems [...] any previous visit. Equipment Requests: [facility] Plan of care note * Care [...] monitored and maintained or improved Outcome: Completed [facility] [id number] Miscellaneous Notes* Care Plan - Dannielle Lawson [...] fall injury Outcome: Progressing documented in this [facility]03-21-2025 NoteRTHOMEO2[[id number]] Respiratory Therapy Home O2 Progress Note O2 [...] home Y/N = Y DME Notified Y [facility]03-21-2025 History of Present illness Narrative* Sean Chen RRT - 10/06/2024 3:30 PM EDT Images from the original note were not included. RTHOMEO2[[id number]] Respiratory Therapy Home O2 Progress Note O2 [...] original note were not included. PHYSICAL THERAPY [facility] Initial Evaluation Name/MRN: Karina Fernando ([id number]) Evaluation Date: 10/06/2024 Date of : 1950 Admission Date: 10/05/2024 8:10 PM Age: 73 y.o. Room[facility]Bed: [facility] A Discharge Recommendation: Home with Home health PT Assessment IMPRESSION: Karina is a 73 y.o. female with past medical history of COPD previous smoker, asthma, Hiatal hernia, Recent discovery of lung mass and thyroid nodules. 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 Pt reports mobility [...] Responsibilities: Independent Receives Help From: Family Active Staff Nurse: Prior Level of Function IND with mobility without device Objective Lower Extremity Assessment AROM: WNL PROM: WNL Strength: WNL Sensation: WNL Balance: Not assessed this session Bed Mobility: Supine to sit: Independent Sit to supine: Independent Transfers Sit to stand: Independent Stand to sit: Independent Ambulation Pt ambulates 50ft with multiple turns without device with SBA. As pt becomes more fatigued INSPECTOR EXPERIMENTAL ASSEMBLY provided due to increased lateral sway. Verbal [...] of Care supervision is transferred to a [facility] Therapy Services Physical Therapist. Goals and/or treatment plan was established in collaboration with patient/family/other representatives. * Charis Barron CCC-ELECTRIC FREIGHT CAR OPERATOR - 10/06/2024 8:43 AM EDT Images from the original note were not included. Speech-Language Pathology SPEECH LANGUAGE PATHOLOGY [facility] Modified Barium Swallow Study Patient Name: Karina Fernando Evaluation Date: 10/06/2024 Date of : 1950 Admission Date: 10/05/2024 8:10 PM Age: 73 y.o. Room/Bed: [facility] A IMPRESSION: The patient presents with mild [...] contrast enters the airway. 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 Please reconsult [...] effective now Question: Diet type Answer: Regular 10/05/24 2216 Textures tested: - thin liquid, (cup edge, [...] and other work up. She presented to [place] ED - with worsening left shoulder, back [...] and was sent in for management to [facility]. She has a history of hiatal hernia [...] Unable to obtain labs and imaging from [place] - Was told she has a complete [...] Goal: To have some coffee Therapy Time ELECTRIC FREIGHT CAR OPERATOR Individual Minutes Time In: 0840 Time Out: 0900 Minutes: 20 Charis Barron CCC-ELECTRIC FREIGHT CAR OPERATOR documented in this [facility]03-21-2025 NoteHospitalist Discharge Summary Karina Fernando : [...] and other work up. She presented to [place] ED - with worsening left shoulder, back [...] and was sent in for management to [facility]. Seen by pulm. Pleural effusion was too [...] Your Medications These medications were sent to [facility] [address] [place] [address], [facility] (more content not included)...[facility]03-21-2025 Hospital Discharge instructions* Discharge Instr - Activity* Emile Horne DO - 10/06/2024 3:08 PM EDT As tolerated * Attachments The following attachments cannot be sent through Care Everywhere. * Pleural Effusion Discharge Instructions (Kosovan) * Shortness of Breath (Dyspnea) Discharge Instructions (Kosovan) documented in this [facility]SP[facility] [id number] Note* Care Coordination - Lisandra Thibodeaux RN - 10/06/2024 12:55 PM EDT Pt adm for tx/ eval of SOB- found to have pleural effusion. RA currently. US guided thoracentesis, XR chest and barium swallow completed. Spoke with pt and family, introduced self and roll. Pt plans to return home- no needs. [facility] HospitalGotjyf85-04-2895 Note* Care Coordination - Lisandra Thibodeaux RN - 10/06/2024 12:55 PM EDT Pt adm for tx/ eval of SOB- found to have pleural effusion. RA currently. US guided thoracentesis, XR chest and barium swallow completed. Spoke with pt and family, introduced self and roll. Pt plans to return home- no needs. [facility] HospitalBtqbfd02-99-3747 NotePHYSICAL THERAPY [facility] Initial Evaluation Name/MRN: Karina Fernando ([id number]) Evaluation Date: 10/06/2024 Date of : 1950 Admission Date: 10/05/2024 8:10 PM Age: 73 y.o. Room/Bed: W4-439/W4439 A Discharge Recommendation: Home with Home health PT Assessment IMPRESSION: Karina is a 73 y.o. female with past medical history of COPD previous smoker, asthma, Hiatal hernia, Recent discovery of lung mass and thyroid nodules. 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 Pt reports mobility [...] Responsibilities: Independent Receives Help From: Family Active Staff Nurse: Prior Level of Function IND with mobility without device Objective Lower Extremity Assessment AROM: WNL PROM: WNL Strength: WNL Sensation: WNL Balance: Not assessed this session Bed Mobility: Supine to sit: Independent Sit to supine: Independent Transfers Sit to stand: Independent Stand to sit: Independent Ambulation Pt ambulates 50ft with multiple turns without device with SBA. As pt becomes more fatigued INSPECTOR EXPERIMENTAL ASSEMBLY provided due to increased lateral sway. Verbal [...] of Care supervision is transferred to a [facility] Services Physical Therapist. Goals and/or treatment plan was established in collaboration with patient/family/other representatives.[facility]03-21-2025 Nurse Note* Monico Islas RN - [...] given via telephone to Fab Lawson RN. [facility] HospitalVotevt65-20-8447 Nurse Note* Monico Islas RN - 10/06/2024 [...] to Fab Lawson RN. documented in this [facility]03-21-2025 NoteProblem: Pain - Adult Goal: Verbalizes/displays adequate comfort level or baseline comfort level Outcome: Progressing Problem: Safety - Adult Goal: Free from fall injury Outcome: [facility] Plan of care note* Care Plan - Pravin Duval RN - 10/06/2024 1:01 AM EDT Problem: Pain - Adult Goal: Verbalizes/displays adequate comfort level or baseline comfort level Outcome: Progressing Problem: Safety - Adult Goal: Free from fall injury Outcome: Progressing [facility] [id number] History and physical note* Sushila Tam MD [...] and other work up. She presented to [place] ED - with worsening left shoulder, back [...] and was sent in for management to [facility]. She has a history of hiatal hernia [...] Unable to obtain labs and imaging from [place] - Was told she has a complete [...] capsule Take 1,000 Units by mouth daily. Ueiwjpnibiz-Rciucwfoo-Uvccst (Trelegy Ellipta) 100-62.5-25 MCG/ACT aerosol powder Inhale [...] capsule Take 1 capsule by mouth daily. Currie-3 Fatty Acids (OMEGA 3 500 PO) Take [...] suspicion of a metastatic process. Will need ELECTRIC FREIGHT CAR OPERATOR and MBSS for assessment. - Lightheadedness [...] Pending the following - s/p pulmonology and ELECTRIC FREIGHT CAR OPERATOR evaluation Total time spent (which include [...] - DO NOT do CPR, intubation] [_] [DNR-CONTRACT FORESTER - Comfort care only] [_] DNR form [was/was not] signed Summary of discussion: The patient health care POA/ surrogate is the following: Catherine Cordova and Andrew Contrerasughn. [Condition that instigated the ACP on this [...] Sushila Tam MD Division of Hospitalist Medicine [facility] [id number] NoteAttending History and Physical Admit Date: 10/05/2024 [...] and other work up. She presented to [place] ED - with worsening left shoulder, back [...] and was sent in for management to [facility]. She has a history of hiatal hernia [...] Unable to obtain labs and imaging from [place] - Was told she has a complete [...] capsule Take 1,000 Units by mouth daily. Knglqxnoowr-Rehhvlpbr-Oehmcx (Trelegy Ellipta) 100-62.5-25 MCG/ACT aerosol powder Inhale [...] capsule Take 1 capsule by mouth daily. Currie-3 Fatty Acids (OMEGA 3 500 PO) Take [...] Allergies: Allergies Allergen Re (more content not included)...[facility]03-20-2025 History and physical note* Sushila Tam [...] and other work up. She presented to [place] ED - with worsening left shoulder, back [...] and was sent in for management to [facility]. She has a history of hiatal hernia [...] Unable to obtain labs and imaging from [place] - Was told she has a complete [...] capsule Take 1,000 Units by mouth daily. Slmovsgduqi-Lbvkefxgm-Vxpypf (Trelegy Ellipta) 100-62.5-25 MCG/ACT aerosol powder Inhale [...] capsule Take 1 capsule by mouth daily. Currie-3 Fatty Acids (OMEGA 3 500 PO) Take [...] suspicion of a metastatic process. Will need ELECTRIC FREIGHT CAR OPERATOR and MBSS for assessment. - Lightheadedness [...] Pending the following - s/p pulmonology and ELECTRIC FREIGHT CAR OPERATOR evaluation Total time spent (which include face to face and non face to face encounters) : 81 minutes. Toxic drug monitoring/narrow therapeutic index drug monitoring : # Drug name : NA # Route administered : NA # Method of monitoring : NA Extended Emergency Contact Information Primary Emergency Contact: InnaDiaz Mobile Relation: Daughter Secondary Emergency Contact: Andrew Dozier Mobile Relation: Son [employer] Kraina Fernando : 1950 Primary Care Physician: TU HECTOR DO The patient and/or family/surrogate voluntarily agreed to participate in ACP services. Patient s cognitive capacity: intact Code Status: [X] [FULL CODE - Continue all advanced life support: CPR,intubation,invasive procedures] [_] [DNR-CCA - DO NOT do CPR, intubation] [_] [DNR-CONTRACT FORESTER - Comfort care only] [_] DNR form [...] Sushila Tam MD Division of Hospitalist Medicine [facility] documented in this [facility]03-20-2025 Discharge summary [facility] Medical Records Department [address] [place] [address] Emergency Department Summary 10/05/24 MR#: [id number] Acct: [id number] Name: KARINA FERNANDO Rep #:[id number] : 1950 73 From: Marty Woods DO PCP: Dr. Tu Hector, DO Status:REG ER [...] she tries to get up and walk. [facility] Medical History COPD (chronic obstructive pulmonary disease) [...] 2.5 mg/3 mL 2.5 mg inhalation PRN IL N 09/22/24 Unknown History (0.083 %) solution [...] following commands and that she was at [facility] year is 2024 Skin: Warm, dry, intact [...] Will attempt to transfer the patient to [facility] as she has a EBUS scheduled on Wednesday. Discussed case with hospitalist at [facility] Dr. Rodriguez who accept patient for [...] % (Auto) 63.2 Lymph % (Auto) 23.3 Hayes % (Auto) 12.9 H Eos % (Auto) [...] 2. Cardiomegaly with mild congestion. Reading Location: [facility] Chest CTA 10/05/24 15:40 IMPRESSION: 1. No pulmonary embolism is identified. Some of the distal pulmonary arteries cannot be evaluated due to suboptimal opacification. 2. 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 Associated atelectasis of the lingula, new since prior exam. 3. Moderate esophageal hiatal hernia. 4. 2.5 cm subpleural nodule of the left lower lobe, unchanged. Reading Location: [facility] Discharge Plan Triage Chief Complaint: Shortness [...] DO [Primary Care Provider] - Print Language: Kosovan Disposition Disposition: DC/Tx to Another Type of HCF What to do if you have Problems For any increased pain, shortness of breath, bleeding, nausea or vomiting, chestpain, or any unexpected problems, contact your Primary Care Provider. Call [facility] ([phone]) or report tothe closest Emergency Room. Call 911 if necessary. 10/05/24 1720 Cosigner Signature (if applicable): CC: Dr. Tu Hector DO ~ Signed [facility]03-20-2025 Radiology Diagnostic study note [facility] Imaging Services [address] [place], [place] [id number] CTA Chest W/WO Contrast MR#: [id number] Acct: [id number] Name: KARINA FERNANDO Rep #: [id number] : 1950 F 73 From: Talya Daniel MD PCP: Dr. Tu Hector DO Status: REG ER Study:CTA Chest W/WO Contrast Date of Exam: 10/05/24 Exam# [id number] Ordering Dr: Pedro Luis Woods DO EXAM: [...] the left lower lobe, unchanged. Reading Location: [facility] CC: Dr. Tu Hector DO; Dr. Marty Woods DO ~ Drop Forger: Signed [facility]03-20-2025 Radiology Diagnostic study note [facility] Imaging Services [address] [place] [address] [id number] Chest PA and Lateral MR#: [id number] Acct: [id number] Name: KARINA FERNANDO Rep #: [id number] : 1950 F 73 From: Talya Daniel MD PCP: Dr. Tu Hector DO Status: REG ER Study:Chest PA and Lateral Date of Exam: 10/05/24 Exam# [id number] Ordering Dr: Pedro Luis Woods DO EXAM: [...] 2. Cardiomegaly with mild congestion. Reading Location: [facility] CC: Dr. Tu Hector DO; Dr. Marty Woods DO ~ Drop Forger: Signed [facility]03-20-2025 Discharge summary Author Marty Woods [facility] Note Date/Time October 05, 2024 5:2 0pm [facility] Medical Records Department [address] [place] [address] Emergency Department Summary 10/05/24 MR#: [id number] Acct: [id number] Name: KARINA FERNANDO Rep #:[id number] : 1950 73 From: Marty Woods DO [...] she tries to get up and walk. [facility] Medical History COPD (chronic obstructive pulmonary disease) [...] 2.5 mg/3 mL 2.5 mg inhalation PRN IL N 09/22/24 Unknown History (0.083 %) solution [...] following commands and that she was at [facility] year is 2024 Skin: Warm, dry, intact [...] Will attempt to transfer the patient to [facility] as she has a EBUS scheduled on Wednesday. Discussed case with hospitalist at [facility] Dr. Rodriguez who accept patient for [...] % (Auto) 63.2 Lymph % (Auto) 23.3 Hayes % (Auto) 12.9 H Eos % (Auto) [...] 2. Cardiomegaly with mild congestion. Reading Location: [facility] Chest CTA 10/05/24 15:40 IMPRESSION: 1. No pulmonary embolism is identified. Some of the distal pulmonary arteries cannot be evaluated due to suboptimal opacification. 2. 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 Associated atelectasis of the lingula, new since prior exam. 3. Moderate esophageal hiatal hernia. 4. 2.5 cm subpleural nodule of the left lower lobe, unchanged. Reading Location: [facility] Discharge Plan Triage Chief Complaint: Shortness [...] DO [Primary Care Provider] - Print Language: Kosovan Disposition Disposition: DC/Tx to Another Type of HCF What to do if you have Problems For any increased pain, shortness of breath, bleeding, nausea or vomiting, chestpain, or any unexpected problems, contact your Primary Care Provider. Call [facility] ([phone]) or report to the closest Emergency Room. Call 911 if necessary. 10/05/24 1720 <Electronically signed by Marty Woods DO> Cosignrussell Signature (if applicable): CC: Dr. Tu Hector, ~ Signed [facility] Work Phone: 1(331) 777-213503-20-2025 Telephone encounter Note* Telephone Encounter - Sydnee Sy - 10/05/2024 1:52 PM EDT Patient is active with [facility] for EBUS/ENB 00811/66048 per code check [facility] HospitalDkisbe24-55-9293 Miscellaneous Notes* Telephone Encounter - Sydnee Sy - 10/05/2024 1:52 PM EDT Patient is active with Donald Centeno for EBUS/ENB 91357/56246 per code check * Telephone Encounter - Ronda Malloy RN - 10/05/2024 1:10 PM EDT Instructions EBUS Endobronchial Ultrasound Procedure Date: October 09, 2024 Time: 1:30 PM Arrival Time: 12:00 PM Physician: Dr. Mejia Location: [facility], Endoscopy Department, [address] [place] [address] Please arrive at the hospital registration desk 1.5 hours prior to scheduled start of procedure. Make sure you have a known responsible adult to transport you home from the hospital as you will not be permitted to drive. Your procedure will be cancelled if you do not have someone to take you home. You can only use a taxi/bus/Uber/medical transportation services representative if you have a known responsible adult to go with you. You may use [employer]. Each patient will receive one validation ticket for [employer]. Do not drink alcohol before or [...] 11:[address] Johnson at [address] [facility], [place], [address] to discuss results. Things to look for post procedure: Fever greater than 101F Coughing up/spitting up bright red blood greater than a teaspoon Increased Shortness of breath/distress and/ or sudden onset of chest pain (call 911 and head to [facility] emergency department) You will be sent home [...] If you have any questions, please call: [phone] RN Clinical Coordinator [facility] Pulmonary Medicine [address] [place] [address], [address] [place] [address] Procedure placed on physician's outlook [...] Patient voices understanding? Yes documented in this [facility]03-20-2025 Telephone encounter Note* Telephone Encounter - Ronda Malloy RN - 10/05/2024 1:10 PM EDT Instructions EBUS Endobronchial Ultrasound Procedure Date: October 09, 2024 Time: 1:30 PM Arrival Time: 12:00 PM Physician: Dr. Mejia Location: [facility], Endoscopy Department, [address] [place] [address] Please arrive at the hospital registration desk 1.5 hours prior to scheduled start of procedure. Make sure you have a known responsible adult to transport you home from the hospital as you will not be permitted to drive. Your procedure will be cancelled if you do not have someone to take you home. You can only use a taxi/bus/Uber/medical transportation services representative if you have a known responsible adult to go with you. You may use [employer]. Each patient will receive one validation ticket for [employer]. Do not drink alcohol before or [...] at 11:[address] Johnson at [address] [place] [address], [facility] to discuss results. Things to look for post procedure: Fever greater than 101F Coughing up/spitting up bright red blood greater than a teaspoon Increased Shortness of breath/distress and/ or sudden onset of chest pain (call 911 and head to [facility] emergency department) You will be sent home [...] If you have any questions, please call: [phone] RN Clinical Coordinator [facility] Pulmonary Medicine [address] [place] [address], [address] [place], [place] [id number] Procedure placed on physician's outlook calendar? yes [...] with patient? yes Patient voices understanding? Yes [facility]pyxek03-11-8545 Telephone encounter Note* Telephone Encounter - Aixa Roche RCP - 10/03/2024 3:12 PM EDT Navigator contacted the office of Rhiannon Georges CNP at [facility]. Requested pulmonary function test and will scanned to media tab when available. [facility] [id number] Miscellaneous Notes* Telephone Encounter - Aixa Roche RCP - 10/03/2024 3:12 PM EDT Navigator contacted the office of Rhiannon Georges CNP at [facility]. Requested pulmonary function test and will scanned to media tab when available. * Telephone Encounter - Aixa Roche RCP - 10/03/2024 1:27 PM EDT Discussed with Dr. Johnson during [facility] appt. Patient has a pericardial effusion and cardiac lesion. She has been lightheaded for a few days and expedited cardiology eval is recommended. Spoke with cardiology office at [phone] and arranged for appt with Dr. Luis at [address] Johnson will send patient [...] consideration. Verified prior images and reports from [facility] are available for review in PACS.Scanned imaging reports including CT chest imaging, thyroid imaging and provider office notes from medical oncology and pulmonary in [place] to the media tab. Patient will see Dr. Lacho Kamara now to further evaluate left hilar mass and adenopathy firstnoted on CT imaging 09/13/2024 in [place]. documented in this [facility]03-18-2025 History of Present illness Narrative* Wilfrido Luis DO - 10/03/2024 2:30 PM EDT Images from the original note were not included. [facility] Cardiology Note DATE of SERVICE:10/03/24 TIME of SERVICE: 2:41 PM Chief Complaint: Chief Complaint Patient presents with New Patient Shortness of Breath >1yr History of PresentIllness: Karina Fernando is a 73 y.o. female with a long history of tobacco use who was evaluated for shortness of breath. 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 She was seen by pulmonary and scheduled for a biopsy also seen by Dr. Fortune. In the meantime however an echocardiogram that was done at [facility] reported a small pericardial effusion and a mass on the patient's right intra-atrial septum. Her biopsy was canceled and she was referred here to cardiology for an evaluation. I reviewed the echocardiogram that was done at [facility], there is a very small hemodynamically insignificant [...] Units by mouth daily., Disp: , Rfl: Luqeqxfgnpq-Ktqofplbd-Stchnx (Trelegy Ellipta) 100-62.5-25 MCG/ACT aerosol powder , [...] capsule by mouth daily., Disp: , Rfl: Currie-3 Fatty Acids (OMEGA 3 500 PO), Take [...] pericardial effusion with RA collapse. 09/13/24- CTA [facility] Assessment and Plan: BSmall hemodynamically insignificant pericardial [...] hesitate to contact me documented in this encounterSPremier Health Miami [facility] Hospital [id number] Telephone encounter Note* Telephone Encounter - Aixa Roche RCP - 10/03/2024 1:27 PM EDT Discussed with Dr. Johnson during [facility] appt. Patient has a pericardial effusion and cardiac lesion. She has been lightheaded for a few days and expedited cardiology eval is recommended. Spoke with cardiology office at [phone] and arranged for appt with Dr. Luis at [address] [place] [address] Johnson will send patient right over. [facility] [id number] Telephone encounter Note* Telephone Encounter - Aixa Roche RCP - 10/03/2024 12:19 PM EDT Navigator received request from cardiothoracic surgery office to assist with expediting lung noduleclinic evaluation. Patient lives far away and [facility] is hoping patient can be seen while on campus. Patient was seen by Dr. Silvio Fortune this morning and needs pulmonary evaluation prior to surgical consideration. Verified prior images and reports from [facility] are available for review in PACS.Scanned imaging reports including CT chest imaging, thyroid imaging and provider office notes from medical oncology and pulmonary in [place] to the media tab. Patient will see Dr. Lacho Kamara now to further evaluate left hilar mass and adenopathy firstnoted on CT imaging 09/13/2024 in [place]. [facility] [id number] History of Present illness Narrative* Rachel Kamara DO - 10/03/2024 12:15 PM EDT [facility], Pulmonary Critical Care Medicine [address] [place] [address] Pulmonary Patient Visit - New 10/03/2024 Referring Physician: TU HECTOR DO Reason for Referral: SOB History of Present Illness Karina Fernando is a 73 y.o. F with history of recurrent sinus infections, COPD on symbicort/albuterol,HTN who presented for a left hilar mass. Stated that in May she began having shortness of breath which worsened until she went to the ER in [place] in August. Found on CT with a left hilar mass, left upper lobe pleural-based mass, and moderate pericardial effusion. Evaluated by oncology and recommended for PET/CT, MRI brain, and biopsy. Established with pulmonology and had been planned forEBUS in [place] but canceled after TTE demonstrated a right [...] acetaminophen (Tylenol Extra Strength) 500 MG tablet [id number] Yes Take by mouth. Slick Garcia MD Not Taking Active albuterol (Ventolin HFA) 108 (90 Base) MCG/ACT inhaler [id number] Inhale 2 puffs every 4 hours as needed for wheezing or shortness of breath. Rachel Kamara DO Active busPIRone (Buspar) 10 MG tablet [id number] Yes Take 10 mg by mouth 3 times daily as needed. Slick Garcia MD Taking Active cetirizine (ZyrTEC) 10 MG tablet [id number] Yes Take 10 mg by mouth daily. Slick Garcia MD Taking Active cholecalciferol (Vitamin D-3) 25 MCG (1000 UT) capsule [id number] Yes Take 1,000 Units by mouth daily. Historical ProviderMD Active Ivfstxriody-Yafjbtfdl-Qveogo (Trelegy Ellipta) 100-62.5-25 MCG/ACT aerosol powder [id number] Inhale 1 Inhalation daily. Rachel Johnson DO Active gabapentin (Neurontin) 300 MG capsule [id number] Yes Take 300 mg by mouth 3 times daily. Slick Garcia MD Not Taking Active hydroCHLOROthiazide (HYDRODiuril) 25 MG tablet [id number] Yes Take 25 mg by mouth daily. Slick Garcia MD Taking Active loratadine (Claritin) 5 MG chewable tablet [id number] Yes Chew 5 mg daily. Historical MD Jose Active Melatonin 2.5 MG chewable tablet [id number] Yes Chew Daily as needed. Historical MD Jose Not Taking Active meloxicam (Mobic) 15 MG tablet [id number] Yes Take by mouth daily. Slick Garcia MD Not TakingActive Multiple Vitamin (multivitamin) capsule [id number] Yes Take 1 capsule by mouth daily. Slick Garcia MD Active Currie-3 Fatty Acids (OMEGA 3 500 PO) [id number] Yes Take by mouth daily. Historical MD Jose Taking Active oxyCODONE-acetaminophen (Percocet) 5-325 MG tablet [id number] Yes Historical MD Jose Taking Active simvastatin (Zocor) 20 MG tablet [id number] Yes Take 20 mg by mouth Nightly. Slick Garcia MD Taking Active traZODone (Desyrel) 100 MG tablet [id number] Yes Take 100 mg by mouth Nightly. Slick Garcia MD Taking Active valACYclovir (Valtrex) 500 MG tablet [id number] Yes Take by mouth daily. Slick Garcia MD Not Taking Active Vitamin E 268 MG (400 UNIT) capsule [id number] Yes Take by mouth daily. Historical MD Jose Taking Active Social History Social History Tobacco [...] and Critical Care Medicine documented in this [facility]03-18-2025 Instructions* Patient Instructions* Jay Zimmerman MA - 10/03/2024 12:15 PM EDT YOUR APPOINTMENT TODAY WAS WITH THE [facility] LUNG NODULE CLINIC, COPD CLINIC, PULMONARY AND SLEEP MEDICINE OFFICE. PLEASE CALL OUR OFFICE AT [phone] IF YOU HAVE NOT RECEIVED YOUR TEST [...] to make improvements. COVID-19 VACCINATION INFORMATION: PH. [phone] [email or web address] [facility] Central Scheduling [phone] [facility] Sleep Scheduling [phone] documented in this [facility]03-18-2025 NoteOrders Placed This Encounter Procedures MR [...] Number of Occurrences: 1 Standing Expiration Date: 10/03/2025[facility] [id number] History of Present illness Narrative* Silvio Fortune MD - 10/03/2024 11:15 AM EDT Images from the original note were not included. [facility] CARDIOVASCULAR & THORACIC SURGERY [address] [facility] [address] Dept: [phone] Dept Loc: [phone] Visit type: New Reason for Visit: AP [...] effusion. Per note, pt had presented to [place] ED in August 2023 for dyspnea. CTA [...] tablet, Take by mouth., Disp: , Rfl: Currie-3 Fatty Acids (OMEGA 3 500 PO), Take [...] This note may have been dictated using [employer] Practice Edition 2.6 and/or 2threads Voice Recognition Feature. The document was proofread, however unrecognized voice recognition primary care provider errors may be present. documented in this [facility]03-13-2025 Evaluation note* Diagnosis Onset Date Resolution [...] Mediastinal lymphadenopathy acute January 02, 2025 9:04am [facility] Work Phone: 1(407) 179-695503-13-2025 Evaluation note* Diagnosis Onset Date Resolution Status [...] Mediastinal lymphadenopathy acute January 23, 2025 9:03am [facility] Work Phone: 1(677) 154-637003-04-2025 Note* Exam Date Time Procedure Performing Provider Status 09/19/24 12:06 PM US Thyroid ANDREW CONKLIN DO; Auth (Verified) [id number] ORIGINAL EXAMINATION: ULTRASOUND OF THE THYROID WITH [...] Sign Date: 09/19/2024 1:04:03 PM Ordering Provider: [facility]03-03-2025 Evaluation note* Diagnosis Onset Date Resolution Status Admit Date Mediastinal lymphadenopathy acute September 18, 2024 12:35pm Lung mass inactive September 18 12:35pm Mediastinal lymphadenopathy acute September 22, 2024 8:56am Shortness of breath acute September 22, 2024 8:56am Shortness of breath acute September 28, 2024 9:34am [facility] Work Phone: 1(329) 821-891503-03-2025 Evaluation note* Diagnosis Onset Date Resolution Status [...] Mediastinal lymphadenopathy acute December 12, 2024 8:07am [facility] Work Phone: 1(754) 157-680603-03-2025 Evaluation note* Diagnosis Onset Date Resolution Status [...] 11:23am Small cell lung cancer acute Ma 2024 11:23am Mediastinal lymphadenopathy acute November 21, [...] Mediastinal lymphadenopathy acute January 02, 2025 9:04am [facility] Work Phone: 1(163) 799-317102-27-2025 Evaluation + Plan note Future Scheduled Tests Laboratory* Basic Metabolic Panel 09/14/24 * Thyroid Stimulating Hormone 02/02/24 * Lipid Profile 09/14/24 * Lipid Profile 02/02/24 * Hepatitis C Antibody IgG 02/02/24 * Vitamin D Level 09/14/24 * Vitamin D Level 02/02/24 * Complete Metabolic Panel 02/02/24 [facility] 02-16-2025 Telephone encounter Note* Telephone Encounter - Kalie Gonzalez MA - 09/03/2024 8:36 AM EST Patient given results and verbalized understanding of instructions given. Kalie Gonzalez MA [facility]02-16-2025 Telephone encounter Note* Telephone Encounter - Kalie Gonzalez MA - 09/03/2024 8:36 AM EST ----- Message from Renetta Villalobos APRN.SUPERVISOR MAINTENANCE sent at 09/03/2024 8:12 AM EST ----- Please advise patient the COVID/flu/RSV test was negative. [facility]02-16-2025 Miscellaneous Notes* Telephone Encounter - Kalie Gonzalez MA - 09/03/2024 8:36 AM EST Patient given results and verbalized understanding of instructions given. Kalie Gonzalez MA * Telephone Encounter - Kalie Gonzalez MA - 09/03/2024 8:36 AM EST ----- Message from Renetta Villalobos APRN.SUPERVISOR MAINTENANCE sent at 09/03/2024 8:12 AM EST ----- Please advise patient the COVID/flu/RSV test was negative. documented in this encounterUniversity Hospitals Geauga Medical Center02-15-2025 GwlyMODM-MYV-8 (AGENT OF COVID-19) RNA: Not detected INFLUENZA A RNA: Not detected INFLUENZA B RNA: Not detected RESPIRATORY SYNCYTIAL VIRUS (RSV) RNA: Not detectedClinton Memorial HospitalComment on above:Performed By: #### [id number] #### [facility] CLIA [id number] [address] [place], [place] [address]602-15-2025 NoteHNO ID: [id number] Author: DUNG LITTLEJOHN MD Service: ? Author [...] Patient reports remotely wolff (more content not included)...[facility]02-15-2025 History of Present illness Narrative* Dung [...] PCP. Dung Littlejohn MD documented in this encounterUniversity Hospitals Geauga Medical Center11-13-2024 NoteHNO ID: [id number] Author: SERGIO MOHR PA-C Service: ? Author Type: Physician Insecticide Maker Type: Progress Notes Filed: 05/31/2024 17:48 Note Text: This note was created using Mavenriter. Subjective Karina Fernando is a 73 year [...] 12/15/2006 Years since quittin.4 (more content not included)...[facility]11-13-2024 History of Present illness Narrative* Sergio Mohr PA-C - 05/31/2024 5:45 PM EST This note was created using Sikluter. Subjective Karina Fernando is a 73 year [...] FRONTAL/LAT Sergio Mohr PA-C documented in this encounterUniversity Hospitals Geauga Medical Center11-13-2024 History of Present illness Narrative* [...] PATIENT PRESENTS WITH AN IMPLANTABLE OR ATTACHED PAPER SEALER: No RADIOLOGY DEPARTMENT: General X-ray: Exam(s) Completed: Chest X-Ray PERIPHERAL IV DATA: Not applicable SIGNED BY: RT Yoko(Avila) May 31, 2024 5:12 PM documented in this encounterUniversity Hospitals Geauga Medical Center11-13-2024 NoteHNO ID: [id number] Author: RIO OSORIO RT(R) Service: ? Author Type: Optical Designer Type: Progress Notes Filed: 05/31/2024 17:17 Note [...] PATIENT PRESENTS WITH AN IMPLANTABLE OR ATTACHED PAPER SEALER: No RADIOLOGY DEPARTMENT: General X-ray: Exam(s) Completed: Chest X-Ray PERIPHERAL IV DATA: Not applicable SIGNED BY: RT Yoko(R) May 31, 2024 5:12 [facility]08-05-2024 Hospital Discharge instructions Patient Education 02/21/2024 [...] for signs of illness. If the pet owner oral surgeon won t allow this, contact your local [...] stopped after 5 minutes of firm pressure [phone] [employer]. [address] [place] [address], [place] [address]. All rights reserved. This information is not intended as a substitute for professional medical care. Always follow yourhealthcare professional's instructions. Follow Up Care 02/21/2024 14:22:21 With:TU HECTOR DO Address: [address] [place] [phone]- [phone] When:2-4 days [facility] 08-04-2024 Hospital Discharge instructions Patient Education [...] or varicose veins, don t sit or newsstand vendor one place for long periods of time. [...] Weakness or dizziness Shaking chills Drenching sweats [phone] [employer]. [address] [place] [address]. All rights reserved. This information is not intended as a substitute for professional medical care. Always follow yourhealthcare professional's instructions. Follow Up Care 02/20/2024 15:15:59 With:TU HECTOR DO Address: [address] [place] [phone]- [phone] When:2-4 days [facility] 08-04-2024 Note Discharge Instructions Thank you for allowing [facility] to assist you with your healthcare needs. The following is importantdischarge information regarding your hospital visit. What to Do Next Instructions from Your Care Team Discharge ED Outpatient Vascular Lab - Ordered -- Test Requested: DVT study LLE (doppler), Lower extremity, Left, Test Reason: Edema, Mon-Fri 8am-4:30pm: Call [phone] at 7:30am to schedule a same day appointment for testing. Please be aware there may be a short wait time., Weekend Holiday 8am-6... Post Acute Orders No qualifying data available. You Need to Schedule the Following Appointments Follow Up with TU HECTOR DO When:Within 2-4 days Where:[address] [place] [phone] Allergies Ceclor Hives Fosamax Swelling / lump [...] or varicose veins, don t sit or newsstand vendor one place for long periods of time. [...] Weakness or dizziness Shaking chills Drenching sweats [phone] [employer]. [address] [place] [address], [place] [address]. All rights reserved. This information is not intended as a substitute for professional medical care. Always follow yourhealthcare professional's instructions. Additional Information VACCINATE! IT SAVES LIVES! Members of the community who have not yet received the COVID-19 vaccine and would like to receive it can visit one of [facility] vaccine clinics. There are many vaccine clinic locations within the [facility]. For locations and available times, please visit www.gettheshot.coronavirus.[place].gov/. It is important to note that some COVID mobile vaccine clinics are held outdoors and may be canceled in rainy or stormy conditions. To learn more about pediatric vaccinations (ages 5-11), we invite you to visit the [facility] webpage. https://www.[email or web address]/pages/[email or web address]-Gbtbp-Ecwyjbcfvqf-Uatwnzkfqp-Wsxtg-Vse stions.htmlTo learn more about the COVID-19 vaccine, we invite you to visit the CDC website for a list of frequently asked questions. https://www.cdc.gov/coronavirus/2019-ncov/vaccines/faq.html [facility] Patient Portal Access Instructions: Stay connected with your healthcare team and access your personal medical information anytime with the [facility] Patient Portal. If you would like a full copy of your medical records please contact the [facility] Medical Records Department Wednesday through Wednesday between 8a.m. and 4:30p.m. Please follow the directions below to access the portal: 1.Access the email account you provided upon registration to the [facility].2.Look for an invitation email from [facility].3.Open the email and access the invitation link: Accept Invitation to [employer]4.Fill in the required abbasi to create your account. Sign into [email or web address] with your username and password that you [...] you will allow to register on the [facility] Patient Portal for access to your information. You can also access the [employer] Patient Portal on the [facility]. Simply click on Health Records under [employer] and then click on the [employer] logo. [...] Call your local pharmacy or go to [email or web address] to find one close to you.3.Make use of household items: Use cat litter or old coffee grounds to dispose medications if other options arenot available. Mix your drugs with these household products, seal them in an airtight container andthrow it into the garbage. Call [facility]: [phone] to be sure your drugs can be [...] been reviewed and explained to me and IABDULLAHI KARINA M understand my current condition and have read and understand these discharge instructions. I have received a written copy of the plan/instructions. If I have questions, I am aware that I should contact my doctor. Patient/Log Chain Feeder Signature: Date/Time: Relationship to Patient: Witness Name/Signature: Date/Time: [facility]07-26-2024 Hospital Discharge instructions Patient Education 02/11/2024 [...] a prescription antihistamine, oral diphenhydramine is an emqd-bip-vqqaopi antihistamine available at pharmacies and grocery stores. [...] or colored drainage from the affected area [phone] [employer]. [address] [place] [address]. All rights reserved. This information is not intended as a substitute for professional medical care. Always follow yourhealthcare professional's instructions. Follow Up Care 02/11/2024 06:26:14 With:TU HECTOR DO Address: [address] [place] [address] [phone] When:2-4 days [facility] 07-26-2024 Emergency department Discharge summary Discharge Instructions Thank you for allowing [facility] to assist you with your healthcare needs. The following is importantdischarge information regarding your hospital visit. Diagnosis from Today's Visit Allergic reaction to medication What to Do Next Instructions from Your Care Team No qualifying data available. Post Acute Orders No qualifying data available. You Need to Schedule the Following Appointments Follow Up with TU HECTOR DO When:Within 2-4 days Where:[address] [place] [phone] Allergies Ceclor Hives Fosamax Swelling / lump [...] Hypertension Unchanged Misc Medication (Mult. Vitamins by [facility]) Carotomax, OmegaGuard, Osteo Matrix, Sona-Palak Gold w/ [...] a prescription antihistamine, oral diphenhydramine is an mjqa-ozg-syxjrdy antihistamine available at pharmacies and grocery stores. [...] or colored drainage from the affected area [phone] [employer] [address] [place] [address] [address]. All rights reserved. This information is not intended as a substitute for professional medical care. Always follow yourhealthcare professional's instructions. Additional Information VACCINATE! IT SAVES LIVES! Members of the community who have not yet received the COVID-19 vaccine and would like to receive it can visit one of [facility] vaccine clinics. There are many vaccine clinic locations within the [facility]. For locations and available times, please visit www.gettheshot.coronavirus.[place].gov/. It is important to note that some COVID mobile vaccine clinics are held outdoors and may be canceled in rainy or stormy conditions. To learn more about pediatric vaccinations (ages 5-11), we invite you to visit the [facility] webpage. https://www.[facility].org/pages/4350-Qyfuy-Dvuuukmecme-Hcjtszyxvk-Dqokv-Fff stions.htmlTo learn more about the COVID-19 vaccine, we invite you to visit the CDC website for a list of frequently asked questions. https://www.cdc.gov/coronavirus/2019-ncov/vaccines/faq.html [facility] Patient Portal Access Instructions: Stay connected with your healthcare team and access your personal medical information anytime with the [facility] [facility] Patient Portal. If you would like a full copy of your medical records please contact the [facility] Medical Records Department Wednesday through Wednesday between 8a.m. and 4:30p.m. Please follow the directions below to access the portal: 1.Access the email account you provided upon registration to the [facility].2.Look for an invitation email from [facility].3.Open the email and access the invitation link: Accept Invitation to [facility]4.Fill in the required abbasi to create your account. Sign into [email or web address] with your username and password that you [...] you will allow to register on the [facility] [facility] Patient Portal for access to your information. You can also access the [facility] Patient Portal on the [facility]. Simply click on Health Records under [facility] and then click on the [employer] logo. HOW TO SAFELY DISPOSE OF PRESCRIPTION [...] Call your local pharmacy or go to [email or web address]/[email or web address] to find one close to you.3.Make use of household items: Use cat litter or old coffee grounds to dispose medications if other options arenot available. Mix your drugs with these household products, seal them in an airtight container andthrow it into the garbage. Call [facility]: [phone] to be sure your drugs can be [...] been reviewed and explained to me and I,ABDULLAHI KARINA M understand my current condition and have read and understand these discharge instructions. I have received a written copy of the plan/instructions. If I have questions, I am aware that I should contact my doctor. Patient/Log Chain Feeder Signature: Date/Time: Relationship to Patient: Witness Name/Signature: Date/Time: [facility]07-26-2024 Note ORIGINAL EXAMINATION: ONE XRAY VIEW [...] Date: 02/11/2024 7:17:20 AM Ordering Provider[facility] Progress note Assumed care of patient at this time. Digitally Signed by Maggy Park RN on 02/11/2024 07:09 AM [facility]07-26-2024 NoteSinus rhythm Electronic Signature: NILTON CASTORENA MD 02/11/2024 06:53:00[facility] 07-19-2024 Hospital Discharge instructions Patient Education [...] for signs of illness. If the pet owner oral surgeon won t allow this, contact your local [...] stopped after 5 minutes of firm pressure [phone] [employer]. [address] [place] [address]. All rights reserved. This information is not intended as a substitute for professional medical care. Always follow yourhealthcare professional's instructions. Follow Up Care 02/04/2024 12:56:31 With:TU HECTOR DO Address: [address] [place] [address] [phone] When:2-4 days [facility] 07-19-2024 Emergency department Discharge summary Discharge Instructions Thank you for allowing [facility] to assist you with your healthcare needs. The following is importantdischarge information regarding your hospital visit. Diagnosis from Today's Visit Wound of skin What to Do Next Instructions from Your Care Team No qualifying data available. Post Acute Orders No qualifying data available. You Need to Schedule the Following Appointments Follow Up with TU HECTOR DO When:Within 2-4 days Where:[address] [place] [address] [phone] Allergies Ceclor Hives Fosamax Swelling / lump [...] for signs of illness. If the pet owner oral surgeon won t allow this, contact your local [...] stopped after 5 minutes of firm pressure [phone] [employer]. [address] [place] [address]. All rights reserved. This information is not intended as a substitute for professional medical care. Always follow yourhealthcare professional's instructions. Additional Information VACCINATE! IT SAVES LIVES! Members of the community who have not yet received the COVID-19 vaccine and would like to receive it can visit one of [facility] vaccine clinics. There are many vaccine clinic locations within the [facility]. For locations and available times, please visit www.gettheshot.coronavirus.[place].gov/. It is important to note that some COVID mobile vaccine clinics are held outdoors and may be canceled in rainy or stormy conditions. To learn more about pediatric vaccinations (ages 5-11), we invite you to visit the [facility] webpage. https://www.[facility].org/pages/7074-Lpxlz-Mcpyxdbymcx-Byitkypqnl-Upjbq-Cix stions.htmlTo learn more about the COVID-19 vaccine, we invite you to visit the CDC website for a list of frequently asked questions. https://www.cdc.gov/coronavirus/2019-ncov/vaccines/faq.html [facility] Patient Portal Access Instructions: Stay connected with your healthcare team and access your personal medical information anytime with the [facility] Patient Portal. If you would like a full copy of your medical records please contact the [facility] Medical Records Department Wednesday through Wednesday between 8a.m. and 4:30p.m. Please follow the directions below to access the portal: 1.Access the email account you provided upon registration to the hospital.2.Look for an invitation email from [facility].3.Open the email and access the invitation link: Accept Invitation to [facility] [facility]4.Fill in the required abbasi to create your account. Sign into [email or web address] with your username and password that you [...] you will allow to register on the [facility] [facility] Patient Portal for access to your information. You can also access the [facility] [facility] Patient Portal on the [facility]. Simply click on Health Records under [facility] and then click on the [employer] logo. [...] Call your local pharmacy or go to http://M[employer].DFMSim/[email or web address] to find one close to you.3.Make use of household items: Use cat litter or old coffee grounds to dispose medications if other options arenot available. Mix your drugs with these household products, seal them in an airtight container andthrow it into the garbage. Call [facility]: [phone] to be sure your drugs can be [...] been reviewed and explained to me and IABDULLAHI NANCY M understand my current condition and have read and understand these discharge instructions. I have received a written copy of the plan/instructions. If I have questions, I am aware that I should contact my doctor. Patient/Log Chain Feeder Signature: Date/Time: Relationship to Patient: Witness Name/Signature: Date/Time: [facility]07-12-2024 Hospital Discharge instructions Patient Education 01/28/2024 [...] for signs of illness. If the pet owner oral surgeon won t allow this, contact your local [...] stopped after 5 minutes of firm pressure [phone] [employer]. [address] [place] [address]. All rights reserved. This information is not intended as a substitute for professional medical care. Always follow yourhealthcare professional's instructions. Follow Up Care 01/28/2024 12:46:23 With:TU HECTOR DO Address: [address] [place] [phone] When:2-4 days [facility] 07-12-2024 Note Discharge Instructions Thank you for allowing [facility] to assist you with your healthcare needs. The following is importantdischarge information regarding your hospital visit. Diagnosis from Today's Visit Cat bite What to Do Next Instructions from Your Care Team No qualifying data available. Post Acute Orders No qualifying data available. You Need to Schedule the Following Appointments Follow Up with TU HECTOR DO When:Within 2-4 days Where:[address] [place] [phone] Allergies Ceclor Hives Fosamax Swelling / lump [...] Medication Leaflets doxycycline (oral/injection) (DOX i LAUREL smith) Acticlate, Adoxa, Alodox, Avidoxy, Doryx, Doryx MPC, Lymepak, Mondoxyne NL, Monodox, Morgidox, Morgidox 6n930bn, Morgidox 5s334wa, Okebo, Oracea, Targadox, Vibramycin, Vibramycin Monohydrate What [...] or life-threatening conditions such as anthrax or Shidler spotted fever. The benefit of treating a [...] may report side effects to FDA at 4-944-HXH-9356. What other drugs will affect doxycycline? Sometimes it is not safe to use certain medications at the same time. Some drugs can affect your blood levels of other drugs you take, which may increase side effects or make the medications less effective. Other drugs may affect doxycycline, including prescription and wpdv-fis-cgopzly medicines, vitamins, and herbal products. Tell your [...] to ensure that the information provided by [employer]. ('[employer]') is accurate, up-to-date, and complete, but no guarantee is made to that effect. Drug information contained herein may be time sensitive. IGG information has been compiled for use by healthcare practitioners and consumers in the [place] and therefore IGG does not warrant that uses outside of the [place] are appropriate, unless specifically indicated otherwise. [employer] drug information does not endorse drugs, diagnose patients or recommend therapy. [employer] drug information isan informational resource designed to [...] effective or appropriate for any given patient. IGG does not assume any responsibility for any aspect of healthcare administered with the aid of information IGG provides. The information contained herein is not intended to cover all possible uses, directions, precautions, warnings, drug interactions, allergic reactions, or adverse effects. If you have questions about the drugs you are taking, check with your doctor, nurse or pharmacist. Copyright 9621-1005 [employer]. Version: 25.. Revision Date: 03/24/2023. Education Materials [...] for signs of illness. If the pet owner oral surgeon won t allow this, contact your local [...] stopped after 5 minutes of firm pressure [phone] [employer]. [address] [place] [address]. All rights reserved. This information is not intended as a substitute for professional medical care. Always follow yourhealthcare professional's instructions. Additional Information VACCINATE! IT SAVES LIVES! Members of the community who have not yet received the COVID-19 vaccine and would like to receive it can visit one of [facility] vaccine clinics. There are many vaccine clinic locations within the [facility]. For locations and available times, please visit www.gettheshot.coronavirus.[place].gov/. It is important to note that some COVID mobile vaccine clinics are held outdoors and may be canceled in rainy or stormy conditions. To learn more about pediatric vaccinations (ages 5-11), we invite you to visit the [facility] webpage. https://www.[facility].org/pages/2925-Xjara-Cyrbixkzwpd-Tqmrnuknrk-Cbogc-Fhz stions.htmlTo learn more about the COVID-19 vaccine, we invite you to visit the CDC website for a list of frequently asked questions. https://www.cdc.gov/coronavirus/2019-ncov/vaccines/faq.html [facility] Patient Portal Access Instructions: Stay connected with your healthcare team and access your personal medical information anytime with the [facility] Patient Portal. If you would like a full copy of your medical records please contact the [facility] Medical Records Department Wednesday through Wednesday between 8a.m. and 4:30p.m. Please follow the directions below to access the portal: 1.Access the email account you provided upon registration to the [facility].2.Look for an invitation email from [facility].3.Open the email and access the invitation link: Accept Invitation to [facility].Fill in the required abbasi to create your account. Sign into [email or web address] with your username and password that you [...] you will allow to register on the [facility] Patient Portal for access to your information. You can also access the [facility] [facility] Patient Portal on the [employer]. Simply click on Health Records under [facility] [facility] and then click on the [employer] logo. [...] Call your local pharmacy or go to http://bit.ly/2N6Mw5t to find one close to you.3.Make use of household items: Use cat litter or old coffee grounds to dispose medications if other options arenot available. Mix your drugs with these household products, seal them in an airtight container andthrow it into the garbage. Call [facility]: [phone] to be sure your drugs can be [...] that I should contact my do ctor. Patient/Log Chain Feeder Signature: Date/Time: Relationship to Patient: Witness Name/Signature: Date/Time: [facility]12-26-2023 Discharge summary Author Chris [facility] July 13, 2023 5:09pm Note Date/Time July 13, 2023 5:03pm [facility] Medical Records Department [address] [place] [address] Emergency Department Summary 07/13/23 MR#: [id number] Acct: [id number] Name: KARINA FERNANDO Rep #:[id number] : 1950 72 From: Chris Maria MD [...] Davey - Last Filed: 07/13/23 17:08> [facility] Home Medications pantoprazole 40 mg tablet,delayed release [...] Ox 96 Oxygen Delivery Method Room Air [facility] <HOPE Davey - Last Filed: 07/13/23 17:08> [facility] Treatment and Re-Evaluation :: Patient appears [...] Maria MD - Last Filed: 07/13/23 17:09> [facility] Narrative Medical decision making narrative: I [...] your Primary Care Provider. Call [facility] ([phone]) or report to the closest Emergency Room. Call 911 if necessary. 07/13/231708 <Electronically signed by Chris Maria MD> Cosigner Signature (if applicable): 07/13/231707 <Electronically signed by Richard Koo NP-C> CC: Dr. Tu Hector DO ~ Signed [facility] Work Phone: 1(979) 468-470807-03-2023 Telephone encounter Note* Telephone Encounter - Marty Daily PA-C - 01/18/2023 9:23 AM EDT PAT orders done [facility] Work Phone: 1(286) 383-769007-03-2023 Miscellaneous Notes* Telephone Encounter - Marty Daily PA-C - 01/18/2023 9:23 AM EDT PAT orders done * Telephone Encounter - Dannielle Izaguirre - 01/15/2023 4:03 PM EDT No PAT- H&P day of surgery Case# [id number] Surgery: Waqas 01/21/23 @ 7:30am Procedure: Resection mass left elbow Dx: Left elbow mass Anesthesia: General [employer]-no prior auth needed for outpatient Patient aware of surgery date and time documented in this [facility]06-30-2023 Telephone encounter Note* Telephone Encounter - Dannielle Izaguirre - 01/15/2023 4:03 PM EDT No PAT- H&P day of surgery Case# [id number] Surgery: Waqas 01/21/23 @ 7:30am Procedure: Resection mass left elbow Dx: Left elbow mass Anesthesia: General [employer] Insurance-no prior auth needed for outpatient Patient aware of surgery date and time [id number] History of Present illness Narrative* Oz Salazar MD - 01/12/2023 10:15 AM EDT [facility] [address] [place] [address] [place] [phone] Dept: [phone] Dept Chief Complaint Patient presents with New Patient Mass left elbow/Dr Arriaga JIM Segovia is a 72-year-old female who presents as [...] tablet Take 25 mg by mouth daily. Currie-3 Fatty Acids (OMEGA 3 500 PO) Take [...] 01/12/2023 at 8:50 PM documented in this [facility]06-14-2023 Note ORIGINAL EXAMINATION: BONE DENSITOMETRY 12/30/2022 [...] Sign Date: 12/30/2022 2:06:23 PM Ordering Provider: [facility]06-14-2023 Note ORIGINAL EXAMINATION: BONE DENSITOMETRY 12/30/2022 11:47 [...] Sign Date: 12/30/2022 2:06:23 PM Ordering Provider: [facility]06-04-2023 Hospital Discharge instructions Patient Education 12/20/2022 14:28:05 [...] for signs of illness. If the pet owner oral surgeon won t allow this, contact your local [...] stopped after 5 minutes of firm pressure [phone] [employer]. [address] [place] [address]. All rights reserved. This information is not intended as a substitute for professional medical care. Always follow yourhealthcare professional's instructions. Follow Up Care 12/20/2022 13:35:43 With:TU HECTOR DO Address: [address] [place] [address] [phone] When:2-4 days [facility] 06-04-2023 Emergency department Discharge summary Discharge Instructions Thank you for allowing [facility] to assist you with your healthcare needs. The following is importantdischarge information regarding your hospital visit. Diagnosis from Today's Visit bitten by cat What to Do Next Instructions from Your Care Team No qualifying data available. Post Acute Orders No qualifying data available. You Need to Schedule the Following Appointments Follow Up with TU HECTOR DO When Within 2-4 days Where: [address] [place] [address] [phone] Allergies Ceclor (Hives) Fosamax (Swelling / lump [...] for signs of illness. If the pet owner oral surgeon won t allow this, contact your local [...] stopped after 5 minutes of firm pressure [phone] [employer]. [address] [place] [address], [place] [address]. All rights reserved. This information is not intended as a substitute for professional medical care. Always follow yourhealthcare professional's instructions. Additional Information VACCINATE! IT SAVES LIVES! Members of the community who have not yet received the COVID-19 vaccine and would like to receive it can visit one of [facility] vaccine clinics. There are many vaccine clinic locations within the [facility]. For locations and available times, please visit www.gettheshot.coronavirus.[place].gov/. It is important to note that some COVID mobile vaccine clinics are held outdoors and may be canceled in rainy or stormy conditions. To learn more about pediatric vaccinations (ages 5-11), we invite you to visit the [facility] webpage. https://www.[facility].org/pages/6640-Zrneg-Twoopxlfohu-Kjtnrtyerl-Nyfbx-Lth stions.htmlTo learn more about the COVID-19 vaccine, we invite you to visit the CDC website for a list of frequently asked questions. https://www.cdc.gov/coronavirus/2019-ncov/vaccines/faq.html [facility] Patient Portal Access Instructions: Stay connected with your healthcare team and access your personal medical information anytime with the [facility] Patient Portal. If you would like a full copy of your medical records please contact the [facility] Medical Records Department Wednesday through Wednesday between 8a.m. and 4:30p.m. Please follow the directions below to access the portal: 1.Access the email account you provided upon registration to the [facility].2.Look for an invitation email from [facility].3.Open the email and access the invitation link: Accept Invitation to [employer]4.Fill in the required abbasi to create your account. Sign into [email or web address] with your username and password that you [...] you will allow to register on the [facility] Patient Portal for access to your information. You can also access the [facility] Patient Portal on the [facility]. Simply click on Health Records under [employer] [facility] and then click on the [employer] logo. [...] Call your local pharmacy or go to [email or web address]/[email or web address] to find one close to you.3.Make use of household items: Use cat litter or old coffee grounds to dispose medications if other options arenot available. Mix your drugs with these household products, seal them in an airtight container andthrow it into the garbage. Call [facility]: [phone] to be sure your drugs can be [...] that I should contact my do ctor. Patient/Log Chain Feeder Signature: Date/Time: Relationship to Patient: Witness Name/Signature: Date/Time: [facility]06-04-2023 History of Present illness Narrative * Jose F Cruz APRN.SUPERVISOR MAINTENANCE - 12/20/2022 12:58 PM EDT Images from [...] Dyazide [Triamterene-Hydrochlorothiazid], Eryc [Erythromycin], Penicillins, Percodan [Oxycodone Eta-Pkqvsabpf-Bzl], and Ultram [Tramadol Hcl] MEDICATIONS hydroCHLOROthiazide 25 [...] evaluation care. Patient will be seen at [facility]. Jose F Cruz APRN.MARIA G documented in this encounterUniversity Hospitals [facility]2022 Evaluation + Plan note Future Scheduled Tests Laboratory* Thyroid Stimulating Hormone 07/03/22 * Lipid Profile 07/03/22 * Hepatitis C Antibody IgG 07/03/22 * Complete Metabolic Panel 07/03/22 Radiology* CT Low Dose Lung Cancer Screening (LDCT) 08/20/22 * BD Bone Density DEXA Axial Skeleton 07/27/22 [facility] 07-01-2021 Evaluation + Plan note Future Scheduled Tests Laboratory* Thyroid Stimulating Hormone 01/16/21 * Lipid Profile 01/16/21 * Complete Metabolic Panel 01/16/21 * COVID-19 Only (AO) 07/21/21 Radiology* CT Abdomen and Pelvis w/ contrast 10/21/21 [facility] 07-01-2021 Evaluation + Plan note Future Scheduled Tests Laboratory* Thyroid Stimulating Hormone 01/16/21 * Lipid Profile 01/16/21 * Complete Metabolic Panel 01/16/21 * COVID-19 Only (AO) 07/21/21 [facility] 06-29-2021 History of Present illness Narrative* [...] 14, 2021 10:19 AM documented in this encounterUniversity Hospitals [facility]06-01-2021 History of Present illness Narrative* [...] 17, 2020 2:12 PM documented in this encounterUniversity Hospitals Geauga Medical CenterEvaluation + Plan note Future Appointments Appointment Date:10/24/2021 02:30:00 PM Scheduled Provider: [facility] Appointment Type:[place] Mammogram Screening Bilateral w/ Avinash Future Scheduled Tests Laboratory* Thyroid Stimulating Hormone 01/16/21 * Lipid Profile 01/16/21 * Complete Metabolic Panel 01/16/21 * COVID-19 Only (AO) 07/21/21 Radiology* MA Mammo Screening Bilateral w/ Avinash 10/24/21 * CT Abdomen and Pelvis w/ contrast 10/21/21 [facility] Evaluation + Plan note Future Appointments Appointment Date:03/09/2023 03:00:00 PM Scheduled Provider:TU HECTOR DO Location:[facility] Appointment Type: Wellness Medicare Future Scheduled Tests Laboratory* Thyroid Stimulating Hormone 07/03/22 * Thyroid Stimulating Hormone 12/23/22 * Lipid Profile 07/03/22 * Lipid Profile 12/23/22 * Hepatitis C Antibody IgG 07/03/22 * Hepatitis C Antibody IgG 12/23/22 * Complete Metabolic Panel 07/03/22 * Complete Metabolic Panel 12/23/22 Radiology* CT Low Dose Lung Cancer Screening (LDCT) 08/20/22 [facility] Evaluation + Plan note Future Appointments Appointment Date:07/06/2023 11:30:00 AM Scheduled Provider:TU HECTOR DO Location:[facility] Appointment Type: [employer] Future Scheduled Tests Laboratory* Thyroid Stimulating Hormone 07/03/22 * Thyroid Stimulating Hormone 12/23/22 * Lipid Profile 07/03/22 * Lipid Profile 12/23/22 * Hepatitis C Antibody IgG 07/03/22 * Hepatitis C Antibody IgG 12/23/22 * Complete Metabolic Panel 07/03/22 * Complete Metabolic Panel 12/23/22 Radiology* CT Low Dose Lung Cancer Screening (LDCT) 08/20/22 [facility] Evaluation + Plan note Future Appointments Appointment Date:02/02/2024 01:00:00 PM Scheduled Provider:TU HECTOR DO Location:[facility] Appointment Type:PC OV Future Scheduled Tests Laboratory* Thyroid Stimulating Hormone 09/29/23 * Lipid Profile 09/29/23 * Hepatitis C Antibody IgG 09/29/23 * Vitamin D Level 09/29/23 * Complete Metabolic Panel 09/29/23 Radiology* CT Low Dose Lung Cancer Screening (LDCT) 09/29/23 * MA Mammo Screening Bilateral w/ Avinash 09/29/23 [facility] Evaluation + Plan note Future Appointments Appointment Date:02/02/2024 01:00:00 PM Scheduled Provider:TU HECTOR DO Location:[facility] Appointment Type:PC OV Future Scheduled Tests Laboratory* Thyroid Stimulating Hormone 09/29/23 * Lipid Profile 09/29/23 * Hepatitis C Antibody IgG 09/29/23 * Vitamin D Level 09/29/23 * Complete Metabolic Panel 09/29/23 Radiology* CT Low Dose Lung Cancer Screening (LDCT) 11/22/23 [facility] Evaluation + Plan note Future Appointments Appointment Date:05/03/2024 01:30:00 PM Scheduled Provider:TU HECTOR DO Location:[facility] Appointment Type:PC OV Future Scheduled Tests Laboratory* Thyroid Stimulating Hormone 02/02/24 * Lipid Profile 02/02/24 * Hepatitis C Antibody IgG 02/02/24 * Vitamin D Level 02/02/24 * Complete Metabolic Panel 02/02/24 Radiology* CT Low Dose Lung Cancer Screening (LDCT) 11/22/23 [facility] Evaluation + Plan note Future Appointments Appointment Date:02/22/2024 02:00:00 PM Scheduled Provider: Location:[facility] Appointment Type:VL - Venous US/Doppler One Leg (for DVT) Appointment Date:02/24/2024 02:00:00 PM Scheduled Provider:TU HECTOR DO Location:[facility] Appointment Type: OV ED Follow Up Appointment Date:05/03/2024 01:30:00 PM Scheduled Provider:TU HECTOR DO Location:[facility] Appointment Type: OV Future Scheduled Tests Laboratory* Thyroid Stimulating Hormone 02/02/24 * Lipid Profile 02/02/24 * Hepatitis C Antibody IgG 02/02/24 * Vitamin D Level 02/02/24 * Complete Metabolic Panel 02/02/24 Radiology* CT Low Dose Lung Cancer Screening (LDCT) 11/22/23 [facility] Health Catalystaluation + Plan note Future Appointments Appointment Date:09/14/2024 11:30:00 AM Scheduled Provider:TU HECTOR DO Location:[facility] Appointment Type: OV Appointment Date:09/26/2024 01:30:00 PM Scheduled Provider:TU HECTOR DO Location:[facility] Appointment Type:PC Wellness Medicare Future Scheduled Tests Laboratory* Thyroid Stimulating Hormone 02/02/24 * Lipid Profile 02/02/24 * Hepatitis C Antibody IgG 02/02/24 * Vitamin D Level 02/02/24 * Complete Metabolic Panel 02/02/24 Radiology* CT Low Dose Lung Cancer Screening (LDCT) 11/22/23 * US Thyroid 09/13/24 [facility] Health Catalystaluation + Plan note Future Appointments Appointment Date:09/26/2024 01:30:00 PM Scheduled Provider:TU HECTOR DO Location:[facility] Appointment Type: [employer] Future Scheduled Tests Laboratory* Basic Metabolic Panel 09/14/24 * Thyroid Stimulating Hormone 02/02/24 * Lipid Profile 09/14/24 * Lipid Profile 02/02/24 * Hepatitis C Antibody IgG 02/02/24 * Vitamin D Level 09/14/24 * Vitamin D Level 02/02/24 * Complete Metabolic Panel 02/02/24 Radiology* CT Low Dose Lung Cancer Screening (LDCT) 11/22/23 * US Thyroid 09/13/24 [facility] Evaluation + Plan note Future Appointments Appointment Date:09/25/2024 03:00:00 PM Scheduled Provider: Location:[facility] Appointment Type:Echo - Echocardiogram Adult Appointment Date:09/26/2024 01:30:00 PM Scheduled Provider:TU HECTOR DO Location:[facility] Appointment Type:PC Wellness Medicare Future Scheduled Tests Laboratory* Basic Metabolic Panel 09/14/24 * Thyroid Stimulating Hormone 02/02/24 * Lipid Profile 09/14/24 * Lipid Profile 02/02/24 * Hepatitis C Antibody IgG 02/02/24 * Vitamin D Level 09/14/24 * Vitamin D Level 02/02/24 * Complete Metabolic Panel 02/02/24 Radiology* CT Low Dose Lung Cancer Screening (LDCT) 11/22/23 [facility] Evvizdskfr note* Diagnosis Cat bite, initial encounter- Primary documented in this encounter [facility] note* Diagnosis Elbow mass, left- Primary [facility]No assessment [facility] Work Phone: Evdptrnqvf note* Diagnosis Cough Wheeze Wheezing documented in this encounter [facility] note* Diagnosis Cough documented in this encounter [facility] note* Diagnosis Infiltrate of lower lobe of left lung present on imaging study- Primary Acute cough documented in this encounter [facility] note* Diagnosis Acute cough documented in this encounter [facility] note* Diagnosis COPD with exacerbation (HCC)- Primary Obstructive chronic bronchitis with exacerbation URI, acute Acute upper respiratory infections of unspecified site documented in this encounter [facility] note* Diagnosis Pericardial effusion Unspecified disease of pericardium documented in this encounter [facility] note* Diagnosis Hilar mass- Primary Right atrial mass documented in this encounter [facility] note* Diagnosis Lung mass- Primary Swelling, mass, or lump in chest Pulmonary emphysema, unspecified emphysema type (HCC) Adenopathy Enlargement of lymph nodes Pericardial effusion Unspecified disease of pericardium Chronic obstructive pulmonary disease, unspecified COPD type (HCC) History of tobacco use Personal history of tobacco use, presenting hazards to health documented in this encounter [facility] note* Diagnosis Hilar mass Adenopathy Enlargement of lymph nodes Lung mass Swelling, mass, or lump in chest Hilar mass Adenopathy Enlargement of lymph nodes Lung mass Swelling, mass, or lump in chest Hilar mass Adenopathy Enlargement of lymph nodes Lung mass Swelling, mass, or lump in chest documented in this encounter [facility] note* Diagnosis Hilar mass Adenopathy Enlargement of lymph nodes Lung mass Swelling, mass, or lump in chest Pleural effusion- Primary Unspecified pleural effusion Pleural effusion Unspecified pleural effusion Lung mass Swelling, mass, or lump in chest Hilar mass Adenopathy Enlargement of lymph nodes Lung mass Swelling, mass, or lump in chest documented in this encounter [facility] note* Diagnosis Hilar mass Adenopathy Enlargement of lymph nodes Lung mass Swelling, mass, or lump in chest documented in this encounter [facility] note* Diagnosis Small cell carcinoma of left lung, unspecified part of lung (HCC)- Primary Chronic obstructive pulmonary disease, unspecified COPD type (HCC) 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 documented in this encounter [facility] note* Diagnosis Pleural mass [facility]* Diagnosis Small cell carcinoma of left lung, unspecified part of lung (HCC)- Primary documented in this encounter [facility] note* Diagnosis Pleural mass documented in this encounter [facility] note* Diagnosis Malignant small cell cancer (CMS/HCC) (HCC)- Primary documented in this encounter [facility] note* Diagnosis Malignant small cell cancer (CMS/HCC) (HCC)- Primary Adenopathy Enlargement of lymph nodes Right atrial mass Pleural effusion Unspecified pleural effusion documented in this encounter [facility] note* Diagnosis Malignant small cell cancer (CMS/HCC) (HCC)- Primary [facility] course Narrative No data available for this section [facility] Hospital Discharge instructions No data available for this section [facility] Hospital Discharge instructions Additional Instructions Please make sure he elevate, take off your rings. Take the clindamycin stop taking the other antibiotic. Will take the clindamycin 3 times a day for 1 week. Return for any worsening symptoms.[facility] Work Phone: Hospital Discharge instructions* Attachments The following attachments cannot be sent through Care Everywhere. * General Anesthesia Discharge Instructions ([place]) * Endobronchial Ultrasound ([place]) [facility] Additional Instructions Avoid taking your [...] oxygen as previously directed. Follow-up with your oncologist.[facility] Work Phone: Hospital Discharge instructionsAdditional Instructions Close follow-up with your PCP return for any worsening symptoms or other concerns.[facility] Work Phone: Progress note No data available for this section [facility] Reason for referral (narrative)No reason for referral information availableWMercy Health St[facility] Work Phone: Reason for visit Narrative* Auth/Cert (Routine) Specialty Diagnoses / Procedures Referred By Conteboni langston Referred To Contact Diagnoses Pleural effusion Hypoxia, lung cancer Procedures . Sushila Tam MD [address] [place] [address] Phone: tel: fax: [facility] Cardiac Post Intervention Progressive Care Unit [facility] PCU [address] [place] [phone] Phone: tel: Referral ID Status Reason Start Date Expiration Date Visits Re quested Visits Authorized [id number] 1 1 [facility] Car reviews for visit Narrative* Auth/Cert (Routine) Specialty Diagnoses / Procedures Referred By Jeffery langston Referred To Contact Diagnoses Hilar mass Adenopathy Lung mass Procedures [place] [facility] EBUS GUIDED SAMPL 3/> NODE STATION/STRUX ENDOBRONCHIAL ULTRASOUND WITH TRANSBRONCHIAL NEEDLE ASPIRATION. POSSIBLE ENDOBRONCHIAL BIOPSIES, NEEDLE ASPIRATION, AND BRUSHINGS. Cain Mejia MD [address] [address] Phone: tel: fax: [facility] [address] [place] [address] Phone: tel: Referral ID Status Reason Start Date Expiration Date Visits Re quested Visits Authorized [id number] 1 1 [facility] for visit Narrative* Imaging (Routine) - Closed Specialty Diagnoses / Procedures Referred By Contac t Referred To Contact Radiology Diagnoses Pleural mass Procedures MR brain w and wo contrast Silvio Fortune MD [address] [place] [address], [address] [place] [address] Phone: tel: fax: Referral ID Status Reason Start Date Expiration Date Visits Re quested Visits Authorized [id number] Closed 10/03/2024 10/03/2025 1 1 [facility] for visit Narrative* Imaging (Routine) - Closed Specialty Diagnoses / Procedures Referred By Jeffery t Referred To Contact Radiology Diagnoses Pleural mass Procedures PET/CT skull base to mid thigh Silvio Fortune MD [address] [place] [address], [address] [place] [address] Phone: tel: fax: Referral ID Status Reason Start Date Expiration Date Visits Re quested Visits Authorized [id number] Closed 10/03/2024 10/03/2025 1 1 [facility] Chief Complaint and Reason for Visit Chief [...] Visit Admit Date Mediastinal lymphadenopathy September 18 025 12:35pm Lung mass September 18, 2024 [...] Visit Admit Date Mediastinal lymphadenopathy September 18 025 12:35pm Lung mass September 18, 2024 [...] July 13, 2 023 5:39pm Power of Acid Loader No July 13, 2023 5:39pm Advance Directive Response Recorded Date/ Time Living Will No July 13, 2 023 6:39pm Power of Acid Loader No July 13, 2023 6:39pm Date Activated Date Inactivated Comments 10/05/2024 8:10 PM Date Activated Date Inactivated Comments 10/05/2024 10:16 PM 10/06/2024 7:49 PM Date Activated Date Inactivated Comments 10/05/2024 8:10 PM 10/05/2024 10:16 PM Advance Directive Response Recorded Date/ Time Living Will No June 20 9:59am Do you have a Healthcare Power of Acid Loader? No June 20, 2024 9:59am Living Will Yes September 13 025 7:47pm Do you have a Healthcare Power of Acid Loader? Yes September 13, 2024 7:47pm Name of Medical Power of Acid Loader Andrew September 13, 2024 7:47pm Advance Directive Response Recorded Date/ Time Living Will Yes October 05, 2024 2:07pm Do you have a Healthcare Power of Acid Loader? Yes October 05, 2024 2:07pm Name of Medical Power of Acid Loader Diaz Cordova October 05, 2024 2:07pm Living Will No June 20 9:59am Do you have a Healthcare Power of Acid Loader? No June 20, 2024 9:59am Living Will Yes September 13 7:47pm Do you have a Healthcare Power of Acid Loader? Yes September 13, 2024 7:47pm Name of Medical Power of Acid Loader Andrew September 13, 2024 7:47pm Date Activated Date Inactivated Comments 10/05/2024 10:16 PM 10/06/2024 7:49 PM Date Activated Date Inactivated Comments 10/05/2024 8:10 PM 10/05/2024 10:16 PM Advance Directive Response Recorded Date/ Time Living Will Yes October 05, 2024 2:07pm Do you have a Healthcare Power of Acid Loader? Yes October 05, 2024 2:07pm Name of Medical Power of Acid Loader Diaz Cordova October 05, 2024 2:07pm Living Will Yes October 21, 2024 3:05pm Do you have a Healthcare Power of Acid Loader? Yes October 21, 2024 3:05pm Name of Medical Power of Acid Loader Catherine Cordova October 21, 2024 3:05pm Living Will Yes September 13, 2 025 7:47pm Do you have a Healthcare Power of Acid Loader? Yes September 13, 2024 7:47pm Name of Medical Power of Acid Loader Andrew September 13, 2024 7:47pm Advance Directive Response Recorded Date/ Time Advance Directives on File No November 232024 1:18pm Living Will Yes November 23, 2024 1: 18pm Do you have a Healthcare Pow er of Acid Loader? Yes November 23, 2024 1:18pm Name of Medical Power of Acid Loader Diaz Cordova - daughter and Ran Dozier - son November 23, 2024 1:18pm Advance Directives Yes November 23, 2024 1:18pm Living Will Yes October 05, 2024 2:07pm Do you have a Healthcare Pow er of Acid Loader? Yes October 05, 2024 2:07pm Name of Medical Power of Acid Loader Diaz Cordova October 05, 2024 2:07pm Living Will Yes October 21, 2024 3:05pm Do you have a Healthcare Pow er of Acid Loader? Yes October 21, 2024 3:05pm Name of Medical Power of Acid Loader Catherine Cordova October 21, 2024 3:05pm Living Will Yes September 13, 2 025 7:47pm Do you have a Healthcare Pow er of Acid Loader? Yes September 13, 2024 7:47pm Name of Medical Power of Acid Loader Andrew September 13, 2024 7:47pm Living Will Yes November 03, 2024 2:04pm Do you have a Healthcare Pow er of Acid Loader? Yes November 03, 2024 2:04pm Name of Medical Power of Acid Loader DIAZ CORDOVA November 03, 2024 2:04pm Advance Directive Response Recorded Date/ Time Advance Directives on File No January 02, 2025 9:21am Living Will Yes January 02, 2025 9:21am Do you have a Healthcare Pow er of Acid Loader? Yes January 02, 2025 9:21am Name of Medical Power of Acid Loader Diaz Cordova - daughter and Ran Dozier - son January 02, 2025 9:21am Advance Directives Yes January 02 9:21am Living Will Yes October 05, 2024 2:07pm Do you have a Healthcare Pow er of Acid Loader? Yes October 05, 2024 2:07pm Name of Medical Power of Acid Loader Diaz Inna October 05, 2024 2:07pm Living Will Yes October 21, 2024 3:05pm Do you have a Healthcare Pow er of Acid Loader? Yes October 21, 2024 3:05pm Name of Medical Power of Acid Loader Catherine Inna October 21, 2024 3:05pm Living Will Yes September 13 7:47pm Do you have a Healthcare Pow er of Acid Loader? Yes September 13, 2024 7:47pm Name of Medical Power of Acid Loader Andrew September 13, 2024 7:47pm Living Will Yes November 03, 2024 2:04pm Do you have a Healthcare Pow er of Acid Loader? Yes November 03, 2024 2:04pm Name of Medical Power of Acid Loader DIAZ CORDOVA November 03, 2024 2:04pm Advance Directive Response Recorded Date/ Time Advance Directives on File No January 04, 2025 12:59pm Living Will Yes January 04, 2025 12:59pm Do you have a Healthcare Pow er of Acid Loader? Yes January 04, 2025 12:59pm Name of Medical Power of Acid Loader Diaz Cordova - daughter and Ran Dozier - son January 04, 2025 12:59pm Advance Directives Yes January 04 12:59pm Living Will Yes October 05, 2024 2:07pm Do you have a Healthcare Pow er of Acid Loader? Yes October 05, 2024 2:07pm Name of Medical Power of Acid Loader Diaz Cordova October 05, 2024 2:07pm Living Will Yes October 21, 2024 3:05pm Do you have a Healthcare Pow er of Acid Loader? Yes October 21, 2024 3:05pm Name of Medical Power of Acid Loader Catherine Cordova October 21, 2024 3:05pm Living Will Yes November 03, 2024 2:04pm Do you have a Healthcare Pow er of Acid Loader? Yes November 03, 2024 2:04pm Name of Medical Power of Acid Loader DIAZ CORDOVA November 03, 2024 2:04pm Advance Directive Response Recorded Date/ Time Advance Directives on File No January 23, 2025 11:30am Living Will Yes January 23, 2025 1 1:30am Do you have a Healthcare Pow er of Acid Loader? Yes January 23, 2025 11:30am Name of Medical Power of Acid Loader Diaz Cordova - daughter and Ran Dozier - son January 23, 2025 11:30am Advance Directives Yes January 23 11:30am Living Will Yes October 05, 2024 2:07pm Do you have a Healthcare Pow er of Acid Loader? Yes October 05, 2024 2:07pm Name of Medical Power of Acid Loader Diaz Cordova October 05, 2024 2:07pm Living Will Yes October 21, 2024 3:05pm Do you have a Healthcare Pow er of Acid Loader? Yes October 21, 2024 3:05pm Name of Medical Power of Acid Loader Catherine Cordova October 21, 2024 3:05pm Living Will Yes November 03, 2024 2:04pm Do you have a Healthcare Pow er of Acid Loader? Yes November 03, 2024 2:04pm Name of Medical Power of Acid Loader DIAZ CORDOVA November 03, 2024 2:04pm Do you have a Healthcare Pow er of Acid Loader? Yes January 28, 2025 6:57pm Name of Medical Power of Acid Loader Diaz Cordova January 28, 2025 6:57pm Summary [...] Care Team (unrecognized sect ion and content) Teacher Visually Impaired Relationship Specialty Start Date End Date Tu Hector DO 0 [facility] [place] [address] PCP - General Family Medicine 01/12/23 Teacher Visually Impaired Relationship Specialty Start Date End Date Tu Hector DO [address] [place] [id number] PCP - General Family Medicine 01/12/23 Teacher Visually Impaired Relationship Specialty Start Date End Date Tu Hector DO [address] [place] [address] PCP - General Family Medicine 01/12/23 Team Status: Active Member Role Status Dates Wesley Be MD Family Provider Active Dr. Tu Hector , Primary Care Provider Active Team Status: Inactive [...] Tu Hector DO Primary Care Provider Active BLUE PRINTS TRIMMERJosh Lew Attending Provider, Referring Provid er Active Teacher Visually Impaired Relationship Specialty Start Date End Date Tu Hector DO [address] [place] [id number] PCP - General Family Medicine 01/12/23 Teacher Visually Impaired Relationship Specialty Start Date End Date Tu Hector DO [address] [place] [id number] PCP - General Family Medicine 01/12/23 Teacher Visually Impaired Relationship Specialty Start Date End Date Tu Hector DO [address] [place] [id number] PCP - General Family Medicine 01/12/23 Teacher Visually Impaired Relationship Specialty Start Date End Date Tu Hector DO [address] [place] [address] PCP - General Family Medicine 01/12/23 Teacher Visually Impaired Relationship Specialty Start Date End Date Tu Hector DO [address] [place] [id number] PCP - General Family Medicine 01/12/23 Teacher Visually Impaired Relationship Specialty Start Date End Date Tu Hector DO [address] [place] [address] PCP - General Family Medicine 01/12/23 Team [...] 18, 2024 End: September 18, 2024 Dr. Alsi Chance MD Attending Provider Active Start: September [...] 2024 End: September 22, 2024 Rhiannon Georges BLUE PRINTS TRIMMER, BLUE PRINTS TRIMMER-C Attending Provider Active Start: September 22, 2024 End: September 22, 2024 Team Status: Inactive Member Role Status Dates Dr. Tu Hector DO Primary Care Provider Active Start: September 22, 2024 End: September 22, 2024 Rhiannon Georges BLUE PRINTS TRIMMER, BLUE PRINTS TRIMMER-C Attending Provider Active Start: September 22, 2024 End: September 22, 2024 Rhiannon Georges BLUE PRINTS TRIMMER, BLUE PRINTS TRIMMER-C Referring Provider Active Start: September 22, 2024 End: September 22, 2024 Team Status: Active Member Role Status Dates Dr. Tu Hector DO Primary Care Provider Active Start: September 25, 2024 Rhiannon Georges BLUE PRINTS TRIMMER, BLUE PRINTS TRIMMER-C Attending Provider Active Start: September 25, 2024 Rhiannon Georges BLUE PRINTS TRIMMER, BLUE PRINTS TRIMMER-C Referring Provider Active Start: September 25, 2024 Team Status: Inactive Member Role Status Dates Dr. Tu Hector DO Primary Care Provider Active Start: September 28, 2024 End: September 28, 2024 Dr. Tu Hector DO Referring Provider Active Start: September 28, 2024 End: September 28, 2024 Rhiannon Georges BLUE PRINTS TRIMMER, BLUE PRINTS TRIMMER-C Attending Provider Active Start: September 28, 2024 End: September 28, 2024 Team Status: Inactive Member Role Status Dates Dr. Tu Hector DO Primary Care Provider Active Start: September 25, 2024 End: September 25, 2024 Rhiannon Georges BLUE PRINTS TRIMMER, BLUE PRINTS TRIMMER-C Attending Provider Active Start: September 25, 2024 End: September 25, 2024 Rhiannon Georges BLUE PRINTS TRIMMER, BLUE PRINTS TRIMMER-C Referring Provider Active Start: September 25, 2024 [...] October 10, 2024 End: October 10, 2024 Teacher Visually Impaired Relationship Specialty Start Date End Date Tu Hector DO [address] [place] [address] PCP - General Family Medicine 01/12/23 Teacher Visually Impaired Relationship Specialty Start Date End Date Tu Hector DO [address] [place] [id number] PCP - General Family Medicine 01/12/23 Teacher Visually Impaired Relationship Specialty Start Date End Date Tu Hector DO [address] [place] [id number] PCP - General Family Medicine 01/12/23 Teacher Visually Impaired Relationship Specialty Start Date End Date Tu Hector DO [address] [place] [address] PCP - General Family Medicine 01/12/23 Teacher Visually Impaired Relationship Specialty Start Date End Date Tu Hector DO [address] [place] [address] PCP - General Family Medicine 01/12/23 Team Status: Inactive Member Role Status Dates Dr. Tu Hector DO Primary Care Provider Active Start: October 21, 2024 End: October 21, 2024 Tay Dumont MD Emergency Provider Active Star t: October 21, 2024 End: October 21, 2024 Teacher Visually Impaired Relationship Specialty Start Date End Date Tu Hector DO [address] [place] [address] PCP - General Family Medicine 01/12/23 Teacher Visually Impaired Relationship Specialty Start Date End Date Tu Hector DO [address] [place] [id number] PCP - General Family Medicine 01/12/23 Teacher Visually Impaired Relationship Specialty Start Date End Date Tu Hector DO [address] [place] [address] PCP - General Family Medicine 01/12/23 Teacher Visually Impaired Relationship Specialty Start Date End Date Tu Hector DO [address] [place] [address] PCP - General Family Medicine 01/12/23 Teacher Visually Impaired Relationship Specialty Start Date End Date Tu Hector DO [address] [place] [address] PCP - General Family Medicine 01/12/23 Team [...] 2024 End: October 26, 2024 Anayeli Win BLUE PRINTS TRIMMER, BLUE PRINTS TRIMMER-C Attending Provider Active Start: October 26, 2024 [...] 2024 End: October 31, 2024 Anayeli Win BLUE PRINTS TRIMMER, BLUE PRINTS TRIMMER-C Attending Provider Active Start: October 31, 2024 End: October 31, 2024 Team Status: Inactive Member Role Status Dates Dr. Tu Hector DO Primary Care Provider Active Start: November 09, 2024 End: November 09, 2024 Dr. Tu Hector DO Referring Provider Active Start: November 09, 2024 End: November 09, 2024 Anayeli Win BLUE PRINTS TRIMMER, BLUE PRINTS TRIMMER-C Attending Provider Active Start: November 09, 2024 [...] Active Start: November 16, 2024 Dr. Omar iHcks MD Other Provider Active Start: November 16, [...] 2024 End: December 12, 2024 Anayeli Win BLUE PRINTS TRIMMER, BLUE PRINTS TRIMMER-C Attending Provider Active Start: December 12, 2024 [...] 2024 End: September 25, 2024 Rhiannon Georges BLUE PRINTS TRIMMER, BLUE PRINTS TRIMMER-C Attending Provider Active Start: September 25, 2024 End: September 25, 2024 Rhiannon Georges BLUE PRINTS TRIMMER, BLUE PRINTS TRIMMER-C Referring Provider Active Start: September 25, 2024 End: September 25, 2024 Team Status: Active Member Role/Relationship Status Dates Dr. Tu Hector DO Primary Care Provider Active Start: September 25, 2024 Dr. Jose Perdomo DO Attending Provider Active S tart: September 25, 2024 Rhiannon Georges BLUE PRINTS TRIMMER, BLUE [employer]INTS TRIMMER-C Referring Provider Active Start: September 25, 2024 Team Status: Inactive Member Role/Relationship Status Dates Dr. Tu Hector DO Primary Care Provider Active Start: September 28, 2024 End: September 28, 2024 Dr. Tu Hector DO Referring Provider Active Start: September 28, 2024 End: September 28, 2024 Rhiannon Georges BLUE PRINTS TRIMMER, BLUE PRINTS TRIMMER-C Attending Provider Active Start: September 28, 2024 [...] 2024 End: October 26, 2024 Anayeli Win BLUE PRINTS TRIMMER, BLUE PRINTS TRIMMER-C Attending Provider Active Start: October 26, 2024 [...] 2024 End: October 31, 2024 Anayeli Win BLUE PRINTS TRIMMER, BLUE PRINTS TRIMMER-C Attending Provider Active Start: October 31, 2024 End: October 31, 2024 Team Status: Inactive Member Role/Relationship Status Dates Dr. Tu Hector DO Primary Care Provider Active Start: November 09, 2024 End: November 09, 2024 Dr. Tu Hector DO Referring Provider Active Start: November 09, 2024 End: November 09, 2024 Anayeli Win BLUE PRINTS TRIMMER, BLUE PRINTS TRIMMER-C Attending Provider Active Start: November 09, 2024 [...] 2024 End: December 12, 2024 Anayeli Audelia BLUE PRINTS TRIMMER, BLUE PRINTS TRIMMER-C Attending Provider Active Start: December 12, 2024 [...] 2025 End: January 16, 2025 Anayeli Audelia BLUE PRINTS TRIMMER, BLUE PRINTS TRIMMER-C Attending Provider Active Start: January 16, 2025 End: January 16, 2025 Anayeli Audelia BLUE PRINTS TRIMMER, BLUE PRINTS TRIMMER-C Referring Provider Active Start: January 16, 2025 End: January 16, 2025 Team Status: Inactive Member Role/Relationship Status Dates Dr. Tu Hector DO Primary Care Provider Active Start: January 16, 2025 End: January 16, 2025 Anayeli Audelia BLUE PRINTS TRIMMER, BLUE PRINTS TRIMMER-C Attending Provider Active Start: January 16, 2025 End: January 16, 2025 Anayeli Audelia BLUE PRINTS TRIMMER, BLUE PRINTS TRIMMER-C Referring Provider Active Start: January 16, 2025 [...] 2024 End: October 26, 2024 Anayeli Win BLUE PRINTS TRIMMER, BLUE PRINTS TRIMMER-C Attending Provider Active Start: October 26, 2024 [...] 2024 End: October 31, 2024 Anayeli Win BLUE PRINTS TRIMMER, BLUE PRINTS TRIMMER-C Attending Provider Active Start: October 31, 2024 End: October 31, 2024 Team Status: Inactive Member Role/Relationship Status Dates Dr. Tu Hector DO Primary Care Provider Active Start: November 09, 2024 End: November 09, 2024 Dr. Tu Hector DO Referring Provider Active Start: November 09, 2024 End: November 09, 2024 Anayeli Win BLUE PRINTS TRIMMER, BLUE PRINTS TRIMMER-C Attending Provider Active Start: November 09, 2024 [...] Active Start: November 16, 2024 Dr. Omar Hciks MD Referring Provider Active Start: November 16, [...] December 12, 2024 End: December 12, 2024 Anaeyli Win BLUE PRINTS TRIMMER, BLUE PRINTS TRIMMER-C Attending Provider Active Start: December 12, 2024 [...] 16, 2025 End: January 16, 2025 Anayeli Win BLUE PRINTS TRIMMER, BLUE PRINTS TRIMMER-C Attending Provider Active Start: January 16, 2025 End: January 16, 2025 Anayeli Win BLUE PRINTS TRIMMER, BLUE PRINTS TRIMMER-C Referring Provider Active Start: January 16, 2025 [...] or prosecute any alcohol or drug abuse patient.[facility] Center[facility] the event this information is protected by the Federal Confidentiality of Alcohol and Drug Abuse Patient Records regulations: The Federal rules restrict any use of the information to criminally investigate or prosecute any alcohol or drug abuse patient.[facility] Center[facility] the event this information is protected by the Federal Confidentiality of Alcohol and Drug Abuse Patient Records regulations: The Federal rules restrict any use of the information to criminally investigate or prosecute any alcohol or drug abuse patient.[facility] Center[facility] the event this information is protected by the Federal Confidentiality of Alcohol and Drug Abuse Patient Records regulations: The Federal rules restrict any use of the information to criminally investigate or prosecute any alcohol or drug abuse patient.[facility] Center[facility] the event this information is protected by the Federal Confidentiality of Alcohol and Drug Abuse Patient Records regulations: The Federal rules restrict any use of the information to criminally investigate or prosecute any alcohol or drug abuse patient.[facility] CenterIn the event this information is protected by the Federal Confidentiality of Alcohol and Drug Abuse Patient Records regulations: The Federal rules restrict any use of the information to criminally investigate or prosecute any alcohol or drug abuse patient.[facility] CenterIn the event this information is protected by the Federal Confidentiality of Alcohol and Drug Abuse Patient Records regulations: The Federal rules restrict any use of the information to criminally investigate or prosecute any alcohol or drug abuse patient.[facility] Reason for Visit (unrecogniz ed section and content) Reason Comments Rash Bottom lower half of right leg, dizziness started at 1:30 am this morning Reason Comments New Patient Mass left elbow/Dr Jackelyn nash Reason Comments Cough Cough, sinus pressur e and drainage x 2 days Reason Comments Sinus Problem sinus pressure, drai nage, sob x 3 days Reason Onset Date Comments Results 09/03/2024 Reason Onset Date Comments Care Coordination 10/03/2024 Lung Nodule Fo llow up / Expedite LNC and Cardiology eval / P[facility] Reason Comments New Patient Shortness of Breath >1yr Reason Comments New Patient Reason Onset Date Comments Care Coordination 10/05/2024 Reason Comments Tumor Board Recommendations Thoracic Dalila or Board Recommendations 10/17/24 Reason Comments Follow-up Reason Onset Date Comments Care Coordination 10/17/2024 Expedite PET s can and send records to med onc in [place] Reason Onset Date Comments Error (VOID this visit) 10/23/2024 Reason Comments New Patient Thyroid Problem Thyroid nodule Specialty Diagnoses / Procedures Referred By Jeffery langston Referred To Contact Endocrinology Diagnoses Nontoxic single thyroid nodule Procedures [place] OFFICE/OUTPATIENT NEW MODERATE MDM 45 MINUTES Joselin Nieto [address] [place] [address] Phone: tel: fax: [facility] End[facility] - [address] [place] [address] Phone: tel: fax: Referral ID Status Reason Start Date Expiration Date V isits Requested Visits Authorized [id number] Pending Review 10/24/2024 10/24/2025 1 1 Reason Onset Date Comments Other 11/01/2024 Goals (unrecognized section and content) Goals may be documented in a n alternate section INFORMATION SOURCE (unrecogn ized section and content) DATE CREATED AUTHOR 02/27/2024 [facility] ([place]) DATE CREATED AUTHOR AUTHOR'S ORGANIZ ATION 09/04/2024 [facility] DATE CREATED AUTHOR AUTHOR'S ORGANIZ ATION 09/27/2024 [facility] DATE CREATED AUTHOR AUTHOR'S ORGANIZ ATION 11/24/2024 [facility] DATE CREATED AUTHOR AUTHOR'S ORGANIZ ATION 12/02/2024 [facility] DATE CREATED AUTHOR AUTHOR'S ORGANIZ ATION 02/11/2025 [facility] Scheduled Active and Recently Administ ered Medications [...] Nebulization, 3 times daily, First dose on Ricarda 10/05/24 at 2245 2245 (Not Given - Provider: [...] (2 times per day), First dose on Ricrada 10/05/24 at 2100 2100 (Canceled Entry - [...] Ricarda 10/05/24 at 2209 barium sulfate (Varibar [place], Varibar Honey) 40 % suspension 10 mL [...] pupils, RR < 8; notify primary team floor person if used ondansetron (Zofran) injection 4 mg(Linked [...] line care, Starting on Ricarda 10/05/24 at 2010, After every IV line use sodium chloride [...] (4-6), Starting on Ricarda 10/05/24 at 2015 Or oxyCODONE (Roxicodone) immediate release tablet 10 [...] measurements taken from different sites, Starting on 10/09/24 at 1546, For 2 doses, Recovery (only), [...] BE BASED ON THE PRIMARY CLINICAL RECORDS. [facility]. provides no warranty or guarantee of the accuracy or completeness of information in this document.
--- NOTE | 2025-02-11 18:44 | ED.RN ---
ETeal RN attempt to do NG with Jose RN @ bedside. Tube placed into R nostril and obtained about 60 cc of green gastric contents. Pt continuously vomiting and vomited tube out into mouth. tube was pulled out to prevent aspiration. Gave pt a break, second attempt made by LSparr RN with ETeal @ bedside. Placed tube into R nostril, pt began yelling and gagging I cant do this dear god take it out Dr. Magdaleno and Dr. Boyce made aware. pt taken to the floor.
--- NOTE | 2025-02-11 19:04 | ED.RN ---
Spoke with Dr. Boyce, was told to inform pt that is is not going to surgery soon and she needed NG. Explained that this was told to pt earlier after second attempt of placing NG. Was told pt can go to floor and another attempt could be made there. This was explained to the patient, pt expressed not wanting the NG due to the discomfort associated with it. Pt feeling were validated, but explained again the importance of the purpose of NG.
[2025-02-11] MEDS: HYDROmorphone 0.5 MG/0.5 ML SYRINGE IV (20:35)
[2025-02-11] MEDS: 0.9% Saline Lock 10 ML Syringe IV (20:36)
--- NOTE | 2025-02-11 21:04 | EX.PCM.CON.S ---
Assessment & Plan Assessment/Plan (1) Partial small bowel obstruction: (2) Abdominal pain: (3) Constipation: PLAN: Plan Reviewed CT a/p with pt and family. I don't see any decompressed SB but there is still stool in rectum and left colon w somewhat liquid looking stool in cecum. I think pt constipation likely contributed to this--pt admits pain in her back has been worse recently and she has been taking more pain meds & did just recently increase her laxatives a couple weeks ago. Pt was unable to tolerate NG as she was vomiting after and it came back out her mouth. pain control- IV dilaudid & will try fentanyl patch 25 mcg. check KUB in AM and possibly sBFT tomorrow; got enema in ER and another on floor.--currently denies abd pain but very uncomfortable due to back pain. Cristin Boyce M.D. Pager: [phone] [facility] [address] [place] [address], [facility] [address] [place] [address] Office: [phone] HPI Consult Data Date of Consult: 02/12/25 HPI Narrative HPI Narrative: KARINA WARD, is a 74 F who presents to the ER due to abdominal pain and nausea vomiting. Patient does have past medical history for metastatic non-small cell cancer and has chronic back pain with this which has been getting worse patient does take oxy 10 mg every 6 hours 30 minutes apart for half the pill. Patient states that she did have to disimpact herself a couple days ago due to constipation but did go a lot. Patient recently started on senna and Colace in last [address] abdomen pelvis showed dilated small bowel report called small bowel obstruction?persistent compared to CAT scan 01/28/2025. Personally did review CAT scan patient does have more dilatation of her bowels than on 01/28/2025. Currently patient denies any abdominal pain. Did receive an enema in the ER. [facility] Medical History Delayed surgical wound healing Constipation Pericardial effusion Hilar mass Right atrial mass Genital herpes Osteoporosis Migraine Hyperlipidemia Hiatal hernia GERD (gastroesophageal reflux disease) Depression Chronic kidney disease (CKD) Bilateral leg edema Thyroid enlargement Hypokalemia Wears dentures Wears glasses Post-menopausal Cancer History of steroid therapy Arthritis Back pain History of hiatal hernia Gastric reflux Former smoker On home oxygen therapy Asthma Shortness of breath on exertion Hoarseness Chronic cough History of edema Cardiology follow-up encounter History of echocardiogram Hypertension Coughing up blood Chest pain Anemia Encounter for antineoplastic immunotherapy Encounter for chemotherapy management Small cell lung cancer Encounter for education 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 COPD (chronic obstructive pulmonary disease) Home Medications ?Medication ?Instructions ?Recorded ?Last Taken ?Type albuterol sulfate 90 mcg/actuation 1 - 2 puff inhalation Q4H PRN PRN 08/24/19 Unknown History aerosol inhaler Sob &/Or Wheezing loratadine 10 mg tablet 10 mg PO DAILY allergy 08/24/19 02/10/25 09:00 History multivitamin 1 tab PO QAM supplement 09/18/24 02/10/25 09:00 History albuterol sulfate 2.5 mg/3 mL 2.5 mg inhalation PRN PRN 09/22/24 02/11/25 18:50 History (0.083 %) solution for nebulization shortness of breath or wheezing lidocaine-prilocaine 2.5 %-2.5 % 1 applic topical ONCE PRN port 10/26/24 Unknown Rx topical cream access 30 days #30 grams ondansetron 8 mg disintegrating 8 mg PO Q8H PRN nausea and 10/26/24 02/11/25 Rx tablet vomiting #30 tabs prochlorperazine maleate 10 mg 10 mg PO Q6H PRN nausea and 10/26/24 Unknown Rx tablet vomiting #30 tabs budesonide-formoterol HFA 80 2 inh inhalation .x4 sob 11/09/24 02/11/25 03:00 History mcg-4.5 mcg/actuation aerosol inhaler buspirone 10 mg tablet 10 mg PO TID PRN anxiety 11/13/24 02/10/25 22:00 History pantoprazole 40 mg tablet,delayed 40 mg PO QDAY gerd 11/13/24 02/10/25 09:00 History release docusate sodium 100 mg capsule 200 mg PO QDAY constipation 11/17/24 02/10/25 22:00 History (Dulcolax Stool Softener (docusate)) ferrous sulfate 325 mg (65 mg 325 mg PO QDAY supplement 11/17/24 02/10/25 09:00 History iron) tablet,delayed release trazodone 100 mg tablet 100 mg PO QHS sleep 11/17/24 02/10/25 21:00 History valacyclovir 500 mg tablet 500 mg PO QDAY PRN shingles 11/17/24 Unknown History oxycodone 10 mg tablet 10 mg PO BID PRN pain 11/22/24 02/11/25 14:00 History cyanocobalamin (vitamin B-12) 50 50 mcg PO DAILY 02/11/25 Unknown History mcg tablet durvalumab 50 mg/mL intravenous IV Q14D 02/11/25 Unknown History solution famotidine 10 mg tablet 10 mg PO BID gerd 02/11/25 02/10/25 22:00 History furosemide 20 mg tablet 20 mg PO DAILY PRN swelling 02/11/25 02/10/25 09:00 History potassium chloride 20 mEq 20 meq PO DAILY sepplement 02/11/25 02/10/25 09:00 History tablet,extended release(part/cryst) zinc citrate, zinc oxide 50 mg 50 mg PO DAILY supplement 02/11/25 02/10/25 09:00 History tablet Allergy/AdvReac Type Severity Reaction Status Date / Time calcipotriene Allergy Severe Rash Verified 02/11/25 14:51 Opioids - Morphine Analogues Allergy Severe Hives Verified 02/11/25 14:51 alendronate sodium (From Allergy Pain in Verified 02/11/25 14:51 Fosamax) joints cefaclor (From Ceclor) Allergy Hives Verified 02/11/25 14:51 ezetimibe Allergy Other Verified 02/11/25 14:51 Penicillins Allergy Hives Verified 02/11/25 14:51 tramadol HCl (From Ultram) Allergy Hives Verified 02/11/25 14:51 hydrochlorothiazide AdvReac Unknown reaction Verified 02/11/25 14:51 erythromycin base AdvReac Nausea Verified 02/11/25 14:51 Family History Mother Leukemia Osteoporosis Thyroid disorder Grandfather Brain cancer Father Respiratory disease Brother Heart disease Surgical History History of tubal ligation History of bunionectomy History of carpal tunnel surgery of right wrist History of eyelid surgery History of shoulder surgery History of carpal tunnel release History of bilateral knee replacement H/O breast biopsy History of appendectomy Previous back surgery Social History Smoking Status: Former smoker Tobacco: How many years used: 30 alcohol intake: never ROS Constitutional Constitutional: Reports anorexia Eyes Eyes: Denies loss of central vision ENT HEENT: Denies dysphagia Cardiovascular Cardiovascular: Denies chest pain Respiratory/Chest Respiratory/Chest: Denies cough Gastrointestinal Gastrointestinal: Reports abdominal pain, nausea and vomiting Genitourinary Genitourinary: Denies dysuria Musculoskeletal Musculoskeletal: Reports back pain Integumentary Integumentary: Denies jaundice Psychiatric Psychiatric: Denies anxiety Hematologic/Lymphatic Hematologic/Lymphatic: Denies easy bleeding Physical Exam Const alert and oriented x3 Constitutional Narrative: Patient uncomfortable due to back pain HEENT normocephalic and head/scalp atraumatic Resp normal respiratory effort Cardio regular rate GI soft to palpation; Negative for non-distended Palpation: tender RLQ; Negative for guarding Extremity no clubbing, cyanosis or edema Neuro CN's II-XII intact bilaterally Psych mental status grossly normal Lab / Micro Data 02/12/25 06:19 02/12/25 06:19 Labs: Laboratory Results - last 24 hr 02/11/25 16:20: WBC 5.6, RBC 3.89 L, Hgb 12.0, Hct 37.0, MCV 95.1, MCH 30.8, MCHC 32.4, RDW Std Deviation 58.0 H, RDW Coeff of Juan David 16.8 H, Plt Count 191, MPV 8.7, Immature Gran % (Auto) 0.400, Neut % (Auto) 71.5 H, Lymph % (Auto) 16.0 L, [place] % (Auto) 11.7 H, Eos % (Auto) 0.0, Baso % (Auto) 0.4, Absolute Neuts (auto) 4.0, Absolute Lymphs (auto) 0.90, Nucleated RBC % 0, Sodium 138, Potassium 3.1 L, Chloride 100, Carbon Dioxide 26.7, Anion Gap 11, BUN 15, Creatinine 0.97, Estim Creat Clear Calc 46.45 L, Est GFR (MDRD) Non-Af 62, BUN/Creatinine Ratio 15.3, Glucose 105 H, Calcium 8.3, Magnesium 2.2, Total Bilirubin 0.31, AST 23, ALT 21, Alkaline Phosphatase 87, Total Protein 5.2 L, Albumin 3.1 L, Globulin 2.1 L, Albumin/Globulin Ratio 1.5, Lipase 10 L 02/11/25 16:40: Urine Color Yellow, Urine Clarity Clear, Urine pH 7.0, Ur Specific [place] 1.010, Urine Protein 30 H, Urine Glucose (UA) Normal, Urine Ketones 5 H, Urine Occult Blood Negative, Urine Nitrite Negative, Urine Bilirubin Negative, Urine Urobilinogen Normal, Ur Leukocyte Esterase 25 H, Urine RBC 0 SEEN, Urine WBC 0-5 SEEN, Ur Squamous Epith Cells 0 SEEN, Urine Bacteria 2+, Urine Mucus 1+ Imaging Radiology Impression Abdomen/Pelvis CT 02/11/25 15:13 IMPRESSION: Findings concerning for a persistent small-bowel obstruction. Additional findings are unchanged when compared to the prior study. Reading [facility]
[2025-02-11] MEDS: Albuterol 2.5 MG/3 ML VIAL.NEB. INHALATION (22:17)
[2025-02-11] MEDS: MELATONIN 10 MG TABLET PO (22:33)
[2025-02-12] VITALS (8 sets, daily range): BP systolic 103–130; BP diastolic 69–79; PULSE 90–100; RESP 16–18; TEMP 36.5–36.8; O2SAT 95–99
[2025-02-12] MEDS: KCL 40mEq in 0.9% NS 40 MEQ/1,000 ML IV.SOLN 250 MEQ IV ×5 (03:05→21:58)
--- NOTE | 2025-02-12 05:00 | RAD_ITS ---
PROCEDURE: ABDOMEN SINGLE VIEW (PORTABLE) 02/12/2025 REASON FOR EXAM: DILATED SB/CONSTIPATION TECHNIQUE: ABDOMEN SINGLE VIEW (PORTABLE) COMPARISON: CT 02/11/2025 FINDINGS: Clear lung bases. Bilateral old rib fractures. No free air. Persistent small bowel dilatation, nondistended large bowel. Status post lower lumbar spine surgery. RAD/Abdomen Single View (Portable) IMPRESSION: Findings are again suggestive of a distal small-bowel obstruction. Consider sm all bowel follow-through examination to further assess. Reading Location[facility]
[2025-02-12] MEDS: Budesonide Respules 0.5 MG/2 ML AMPUL.NEB. INHALATION ×2 (06:26→19:10)
[2025-02-12] MEDS: Albuterol 2.5 MG/3 ML VIAL.NEB. INHALATION ×3 (06:26→19:10)
[2025-02-12 06:34] LABS: Hematocrit 32.4 % (37-47); Hemoglobin 10.4 g/dL (12.0-15.0); Immature Granulocytes Count 0.030 X10^3/uL (0.0-0.0); Mean Corp Hgb Conc 32.1 g/dL (32-36); Mean Corpuscular Volume 97.0 fL (81-99); Mean Platelet Vol. 8.8 fl (6.2-12.0); NRBC Flagged by Analyzer 0 % (0-5); Platelet Count 155 K/mm3 (150-450); RBC Distribution Width CV 17.0 % (11.6-14.6); RBC Distribution Width SD 60.9 fl (35.1-43.9); Red Blood Count 3.34 M/mm3 (4.2-5.4); White Blood Count 6.4 K/mm3 (4.4-11.0)
[2025-02-12 07:00] LABS: BUN 13 mg/dL (4-19); Glucose 94 mg/dL (70-99)
[2025-02-12 07:01] LABS: Anion Gap 7 (5-15); BUN/Creat Ratio 15.5 RATIO (10-20); Calcium,Total 7.7 mg/dL (7.6-11.0); Carbon Dioxide 24.1 mmol/L (21.0-32.0); Chloride 111 mmol/L (98-108); Estimated Creatinine Clearance 51.79 ml/min (50-250); Potassium 4.9 mmol/L (3.3-5.1)
[2025-02-12] MEDS: 0.9 % NaCl (Sterile) Posiflush 10 mL IV (07:35)
[2025-02-12] MEDS: Pantoprazole Sodium 40 MG in 0.9% Normal Saline (100mL MB+) 100 ML 300 MG IV (08:02)
--- NOTE | 2025-02-12 08:53 | PN.SURG_ITS ---
Subjective Subjective Patient evaluated resting comfortably in the chair. She notes minimal amount of nausea this morning. She denies any abdominal pain currently. She denies any recent BM since her last enema yesterday. She has not passed flatus. Objective Data Objective Data Vital Signs: Vital Signs Temp Pulse Resp BP Pulse Ox O2 Del Method O2 Flow Rate 98 F 93 18 112/76 99 Room Air 3 02/12/25 03:00 02/12/25 06:27 02/12/25 06:27 02/12/25 03:00 02/12/25 06:27 02/12/25 06:27 02/11/25 17:00 Oxygen Flow Rate (L/min) 3 Oxygen Delivery Method Room Air Weight: 140 lb 10.479 oz Body Mass Index (BMI) 24.9 Intake & Output: Intake and Output for Last 24 Hours 02/10/25 02/11/25 02/12/25 23:59 23:59 23:59 Intake Total 1999 / 1999 1999 / 1999 Output Total 1000 / 1000 Balance 1999 / 999 1000 / 1000 Lab / Micro Data 02/12/25 06:19 02/12/25 06:19 Labs: Laboratory Results - last 24 hr 02/11/25 16:20: WBC 5.6, RBC 3.89 L, Hgb 12.0, Hct 37.0, MCV 95.1, MCH 30.8, MCHC 32.4, RDW Std Deviation 58.0 H, RDW Coeff of Juan David 16.8 H, Plt Count 191, MPV 8.7, Immature Gran % (Auto) 0.400, Neut % (Auto) 71.5 H, Lymph % (Auto) 16.0 L, Orange % (Auto) 11.7 H, Eos % (Auto) 0.0, Baso % (Auto) 0.4, Absolute Neuts (auto) 4.0, Absolute Lymphs (auto) 0.90, Nucleated RBC % 0, Sodium 138, Potassium 3.1 L , Chloride 100, Carbon Dioxide 26.7, Anion Gap 11, BUN 15, Creatinine 0.97, E stim Creat Clear Calc 46.45 L, Est GFR (MDRD) Non-Af 62, BUN/Creatinine Ratio 15.3, Glucose 105 H, Calcium 8.3, Magnesium 2.2, Total Bilirubin 0.31, AST 23, ALT 21, Alkaline Phosphatase 87, Total Protein 5.2 L, Albumin 3.1 L, Globulin 2.1 L, Albumin/Globulin Ratio 1.5, Lipase 10 L 02/11/25 16:40: Urine Color Yellow, Urine Clarity Clear, Urine pH 7.0, Ur Specific [place] 1.010, Urine Protein 30 H, Urine Glucose (UA) Normal, Urine Ketones 5 H, Urine Occult Blood Negative, Urine Nitrite Negative, Urine Bilirubin Negative, Urine Urobilinogen Normal, Ur Leukocyte Esterase 25 H, Urine RBC 0 SEEN, Urine WBC 0-5 SEEN, Ur Squamous Epith Cells 0 SEEN, Urine Bacteria 2+, Urine Mucus 1+ 02/12/25 06:19: WBC 6.4, RBC 3.34 L, Hgb 10.4 L, Hct 32.4 L, MCV 97.0, MCH 31.1, MCHC 32.1, RDW Std Deviation 60.9 H, RDW Coeff of Juan David 17.0 H, Plt Count 155, MPV 8.8, Immature Gran % (Auto) 0.500, Neut % (Auto) 69.4, Lymph % (Auto) 15.8 L, M jacob % (Auto) 11.0 H, Eos % (Auto) 2.8, Baso % (Auto) 0.5, Absolute Neuts (auto) 4.4, Absolute Lymphs (auto) 1.01, Nucleated RBC % 0, Sodium 142, Potassium 4.9, Chloride 111 H, Carbon Dioxide 24.1, Anion Gap 7, BUN 13, Creatinine 0.87, Estim Creat Clear Calc 51.79, Est GFR (MDRD) Non-Af 71, BUN/Creatinine Ratio 15.5, Glucose 94, Calcium 7.7, TSH 0.632 Radiography Diagnostic Testing: Radiology Impression Abdomen/Pelvis CT 02/11/25 15:13 IMPRESSION: Findings concerning for a persistent small-bowel obstruction. Additional findings are unchanged when compared to the prior study. Reading Location[facility] KUB X-Ray 02/12/25 05:00 IMPRESSION: Findings are again suggestive of a distal small-bowel obstruction. Consider small bowel follow-through examination to further assess. Reading Location: [place] [address] Physical Exam GI GI Narrative: Abdomen- soft, slightly distended. Nontender Assessment & Plan Assessment/Plan (1) Partial small bowel obstruction: (2) Abdominal pain: PLAN: Plan I am following this patient in conjunction with Dr. Boyce. She will independently evaluate this patient. Labs reviewed Plan for a small bowel follow-through today along with an enema Continue to keep patient NPO at this time We will continue to monitor this patient Charges/Coding Visit Charges Inpatient E&M: [id number] [facility] L2
--- NOTE | 2025-02-12 09:30 | RAD_ITS ---
EXAM: Small-bowel series CLINICAL HISTORY: Partial small bowel obstruction. COMPARISON: Abdomen study 02/13/2020 TECHNIQUE: 14 image small-bowel series RAD/Small Bowel Series Only IMPRESSION: Again seen are a few moderately dilated small bowel loops, predominantly in the central to left abdomen. In the 11 hour film, contrast does extend into the cecum. The 20.5 hour film d emonstrates contrast within the descending and sigmoid colon. Findings consistent with partial small bowel obstruction. Reading Location: [place] [address]
--- NOTE | 2025-02-12 10:24 | NURSING ---
pt to get tap water enema after small bowel series finishes
[2025-02-12] MEDS: 0.9% Saline Lock 10 ML Syringe IV ×4 (10:55→21:10)
--- NOTE | 2025-02-12 11:18 | CASEMGMT ---
RYAN QUIROZ Assessment: Face to Face with pt for initial transition planning/care coordination assessment. RN GABRIELLA introduced self and role at [facility], pt voices understanding and consents to assessment. Pt is A&O x4 and answers all questions appropriately at this time. Pt lying in bed in no distress. Care providers, pharmacy, and demographics verified/updated. Admitting Dx: sbo Strata Score: 3 PCP:Mast Specialists:heather Chance Preferred Pharmacy: [facility] Retail Insurance: [employer] [facility] Prescription Benefit: yes LNOK: Glenny Keith, dtr; Yuri Dozier, son Living Arrangements: Pt lives alone in a two story home with 6 steps to enter with a rail. Pt reports she is I in ADL/IADLs and denies concerns at home. Transportation: Pt drives self and denies concerns with transportation. DME:toilet rails, shower stool, walker, crutches HHC/SNF: Denies hx of Pt states no concerns with going home at time of dc. Pt states no further concerns/needs. Pt states that she declined therapy as she is indep. CM to follow. Advised pt to ask CM if any further questions/concerns/needs arise, voices understanding. Pt Goal: Home Plan: Home Katia DAVIS CM
--- NOTE | 2025-02-12 12:59 | PN_ITS ---
Subjective Subjective Patient seen and examined. She was admitted with a complaint of abdominal pain with nausea vomiting due to severe constipation. She was given an enema yesterday and says she had 2 large bowel movements. She did complain of some nausea again subsequently today. Abdominal pain is improving. Review of systems otherwise negative. She has remained hemodynamically stable. Objective Data Objective Data Vital Signs: Vital Signs Temp Pulse Resp BP Pulse Ox O2 Del Method O2 Flow Rate 98.2 F 95 18 103/69 95 Room Air 3 02/12/25 09:03 02/12/25 09:03 02/12/25 09:03 02/12/25 09:03 02/12/25 09:03 02/12/25 09:03 02/11/25 17:00 Oxygen Flow Rate (L/min) 3 Oxygen Delivery Method Room Air Weight: 140 lb 10.479 oz Body Mass Index (BMI) 24.9 Intake & Output: Intake and Output for Last 24 Hours 02/10/25 02/11/25 02/12/25 23:59 23:59 23:59 Intake Total 1999 2525 / 2525 Output Total 2400 / 2400 Balance 1999 / 999 125 / 125 Lab / Micro Data 02/12/25 06:19 02/12/25 06:19 Labs: Laboratory Results - last 24 hr 02/11/25 16:20: WBC 5.6, RBC 3.89 L, Hgb 12.0, Hct 37.0, MCV 95.1, MCH 30.8, MCHC 32.4, RDW Std Deviation 58.0 H, RDW Coeff of Juan David 16.8 H, Plt Count 191, MPV 8.7, Immature Gran % (Auto) 0.400, Neut % (Auto) 71.5 H, Lymph % (Auto) 16.0 L, [place] % (Auto) 11.7 H, Eos % (Auto) 0.0, Baso % (Auto) 0.4, Absolute Neuts (auto) 4.0, Absolute Lymphs (auto) 0.90, Nucleated RBC % 0, Sodium 138, Potassium 3.1 L , Chloride 100, Carbon Dioxide 26.7, Anion Gap 11, BUN 15, Creatinine 0.97, E stim Creat Clear Calc 46.45 L, Est GFR (MDRD) Non-Af 62, BUN/Creatinine Ratio 15.3, Glucose 105 H, Calcium 8.3, Magnesium 2.2, Total Bilirubin 0.31, AST 23, ALT 21, Alkaline Phosphatase 87, Total Protein 5.2 L, Albumin 3.1 L, Globulin 2.1 L, Albumin/Globulin Ratio 1.5, Lipase 10 L 02/11/25 16:40: Urine Color Yellow, Urine Clarity Clear, Urine pH 7.0, Ur Specific [place] 1.010, Urine Protein 30 H, Urine Glucose (UA) Normal, Urine Ketones 5 H, Urine Occult Blood Negative, Urine Nitrite Negative, Urine Bilirubin Negative, Urine Urobilinogen Normal, Ur Leukocyte Esterase 25 H, Urine RBC 0 SEEN, Urine WBC 0-5 SEEN, Ur Squamous Epith Cells 0 SEEN, Urine Bacteria 2+, Urine Mucus 1+ 02/12/25 06:19: WBC 6.4, RBC 3.34 L, Hgb 10.4 L, Hct 32.4 L, MCV 97.0, MCH 31.1, MCHC 32.1, RDW Std Deviation 60.9 H, RDW Coeff of Juan David 17.0 H, Plt Count 155, MPV 8.8, Immature Gran % (Auto) 0.500, Neut % (Auto) 69.4, Lymph % (Auto) 15.8 L, M jacob % (Auto) 11.0 H, Eos % (Auto) 2.8, Baso % (Auto) 0.5, Absolute Neuts (auto) 4.4, Absolute Lymphs (auto) 1.01, Nucleated RBC % 0, Sodium 142, Potassium 4.9, Chloride 111 H, Carbon Dioxide 24.1, Anion Gap 7, BUN 13, Creatinine 0.87, Estim Creat Clear Calc 51.79, Est GFR (MDRD) Non-Af 71, BUN/Creatinine Ratio 15.5, Glucose 94, Calcium 7.7, TSH 0.632 Radiography Diagnostic Testing: Radiology Impression Abdomen/Pelvis CT 02/11/25 15:13 IMPRESSION: Findings concerning for a persistent small-bowel obstruction. Additional findings are unchanged when compared to the prior study. Reading Location: [facility] X-Ray 02/12/25 05:00 IMPRESSION: Findings are again suggestive of a distal small-bowel obstruction. Consider small bowel follow-through examination to further assess. Reading Location: [place] [address] Physical Exam Const alert and oriented x3 Constitutional Narrative: frail and weak General Appearance: cooperative HEENT normocephalic, head/scalp atraumatic and oropharynx normal Mouth: dry mucous membranes Eyes PERRL and EOMs intact bilaterally Neck no lymphadenopathy and supple Lymph Lymphatic: no lymphadenopathy noted Resp normal respiratory effort, normal air movement and clear to auscultation bilaterally Cardio regular rate, regular rhythm, S1 normal heart sound, S2 normal heart sound and no murmurs GI normal to inspection, nondistended, normoactive bowel sounds, soft to palpation, non-tender and non-distended Extremity normal capillary refill and no clubbing, cyanosis or edema General Extremity: no tenderness to palpation of joints or extremities Skin General Skin Exam: no breakdown Neuro CN's II-XII intact bilaterally, no focal motor deficits, no sensory deficits noted and deep tendon reflexes 2+ bilaterally Motor Exam: general weakness Psych thought process normal Appearance: appropriate Assessment & Plan Assessment/Plan (1) Partial small bowel obstruction: (2) Abdominal pain: (3) Hypokalemia: (4) Delayed surgical wound healing: PLAN: Plan #Small bowel obstruction due to severe constipation * has a history of metastatic small cell cancer. Admitted with a complaint of abdominal pain as well as CT abdomen/pelvis suggestive of persistent small bowel obstruction. 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 * was on systemic chemotherapy and immunotherapy with carboplatin, etoposide as well as durvalumab. * now on immunotherapy * continue with oncology on outpatient basis. * #History of COPD: not in exacerbation. Breathing treatment with bronchodilators. #Abnormal urinalysis: Urinalysis showed 2+ bacteria. Has no urinary symptoms. Check urine culture. #Depression and anxiety: currently NPO. resume meds once she is on a diet #GERD: on PPI. DVt prophylaxis; SCDs. Charges/Coding Visit Charges Inpatient E&M: 42730 Subs Hosp L2
[2025-02-12] MEDS: HYDROmorphone 0.5 MG/0.5 ML SYRINGE IV ×2 (15:41→21:09)
[2025-02-13] MEDS: KCL 40mEq in 0.9% NS 40 MEQ/1,000 ML IV.SOLN 250 MEQ IV ×2 (01:55→06:02)
[2025-02-13 01:58] VITALS: BP 134/86; PULSE 82; RESP 18; TEMP 36.6; O2SAT 100
[2025-02-13] MEDS: HYDROmorphone 0.5 MG/0.5 ML SYRINGE IV ×3 (04:04→15:58)
[2025-02-13] MEDS: 0.9% Saline Lock 10 ML Syringe IV ×2 (04:04→09:29)
[2025-02-13 05:55] LABS: Hematocrit 33.5 % (37-47); Hemoglobin 10.2 g/dL (12.0-15.0); Immature Granulocytes Count 0.030 X10^3/uL (0.0-0.0); Mean Corp Hgb Conc 30.4 g/dL (32-36); Mean Corpuscular Volume 100.0 fL (81-99); Mean Platelet Vol. 9.0 fl (6.2-12.0); NRBC Flagged by Analyzer 0 % (0-5); Platelet Count 180 K/mm3 (150-450); RBC Distribution Width CV 17.2 % (11.6-14.6); RBC Distribution Width SD 63.8 fl (35.1-43.9); Red Blood Count 3.35 M/mm3 (4.2-5.4); White Blood Count 5.8 K/mm3 (4.4-11.0)
[2025-02-13 06:12] LABS: Anion Gap 7 (5-15); BUN 10 mg/dL (4-19); BUN/Creat Ratio 13.1 RATIO (10-20); Calcium,Total 7.9 mg/dL (7.6-11.0); Carbon Dioxide 17.7 mmol/L (21.0-32.0); Chloride 116 mmol/L (98-108); Estimated Creatinine Clearance 56.32 ml/min (50-250); Glucose 84 mg/dL (70-99); Potassium 5.9 mmol/L (3.3-5.1)
[2025-02-13] MEDS: 0.9% Normal Saline (1000mL) 1,000 ML 150 ML IV ×3 (06:30→18:30)
--- NOTE | 2025-02-13 06:48 | PN.SURG_ITS ---
Subjective Subjective Patient evaluated resting comfortably in bed. She notes feeling much improved this morning. She denies any nausea, vomiting over night. She notes upwards of 17 bowel movements with most being loose, however some with solid component to them. She denies any abdominal pain this morning. She is passing flatus. She notes bowel movements started yesterday following the enema. She is feeling hungry this morning. Objective Data Objective Data Vital Signs: Vital Signs Temp Pulse Resp BP Pulse Ox O2 Del Method O2 Flow Rate 98 F 82 18 134/86 H 100 Nasal Cannula 3 02/13/25 01:58 02/13/25 01:58 02/13/25 01:58 02/13/25 01:58 02/13/25 01:58 02/13/25 02:04 02/13/25 02:04 Oxygen Flow Rate (L/min) 3 Oxygen Delivery Method Nasal Cannula Weight: 140 lb 10.479 oz Body Mass Index (BMI) 24.9 Intake & Output: Intake and Output for Last 24 Hours 02/11/25 02/12/25 02/13/25 23:59 23:59 23:59 Intake Total 1999 4975 / 4975 2087.5 / 2087.5 Output Total 3400 / 3400 Balance 1999 1575 / 1575 2087.5 / 2087.5 Lab / Micro Data 02/13/25 04:56 02/13/25 04:56 Labs: Laboratory Results - last 24 hr 02/12/25 06:19: Sodium 142, Potassium 4.9, Chloride 111 H, Carbon Dioxide 24.1, Anion Gap 7, BUN 13, Creatinine 0.87, Estim Creat Clear Calc 51.79, Est GFR (MDRD) Non-Af 71, BUN/Creatinine Ratio 15.5, Glucose 94, Calcium 7.7, TSH 0.632 02/13/25 04:56: WBC 5.8, RBC 3.35 L, Hgb 10.2 L, Hct 33.5 L, MCV 100.0 H, MCH 30.4, MCHC 30.4 L D, RDW Std Deviation 63.8 H, RDW Coeff of Juan David 17.2 H, Plt Count 180, MPV 9.0, Immature Gran % (Auto) 0.500, Neut % (Auto) 70.8 H, Lymph % (Auto) 17.6 L, [place] % (Auto) 10.3 H, Eos % (Auto) 0.3, Baso % (Auto) 0.5, Absolute Neuts (auto) 4.1, Absolute Lymphs (auto) 1.02, Nucleated RBC % 0, Sodium 140, Potassium 5.9 H, Chloride 116 H, Carbon Dioxide 17.7 L, Anion Gap 7, BUN 10, Creatinine 0.73, Estim Creat Clear Calc 56.32, Est GFR (MDRD) Non-Af 86, BUN/Creatinine Ratio 13.1, Glucose 84, Calcium 7.9 Physical Exam Const alert, oriented x3 and no apparent distress GI GI Narrative: Abdomen- soft, nontender. Positive bowel sounds Assessment & Plan Assessment/Plan (1) Abdominal pain: (2) Partial small bowel obstruction: PLAN: Plan I am following this patient in conjunction with Dr. Boyce. Labs reviewed. Potassium elevated. IV fluids changed Increase diet to clear liquids and advance slowly as tolerated SBFT completed yesterday with contrast in the colon. Findings are keeping with a small bowel obstruction, however patient's examination is not correlating with the images If patient tolerates her diet, she may be discharged from a surgical standpoint I did discuss with the patient that she will need to stay on a soft food diet for 2 weeks from discharge. Avoiding tough meats and raw veggies especially during that time No follow-up needed with our office We will continue to monitor this patient as long as she is hospitalized Charges/Coding Visit Charges Inpatient E&M: 61227 Subs Hosp L2
[2025-02-13 08:00] VITALS: BP 136/84; PULSE 82; RESP 16; TEMP 37.2; O2SAT 98
[2025-02-13] MEDS: Pantoprazole Sodium 40 MG in 0.9% Normal Saline (100mL MB+) 100 ML 300 MG IV (08:11)
--- NOTE | 2025-02-13 10:32 | PN_ITS ---
Subjective Subjective Patient seen and examined. Her daughter was by her bedside. She said she felt much better today. She denied any shortness of breath, nausea, vomiting or abdominal pain. She says her diarrhea is also improving. Review of systems is otherwise negative. Potassium today is 2.9 Objective Data Objective Data Vital Signs: Vital Signs Temp Pulse Resp BP Pulse Ox O2 Del Method O2 Flow Rate 98.9 F 82 16 136/84 H 98 Nasal Cannula 3 02/13/25 08:00 02/13/25 08:00 02/13/25 08:00 02/13/25 08:00 02/13/25 08:00 02/13/25 08:00 02/13/25 08:00 Oxygen Flow Rate (L/min) 3 Oxygen Delivery Method Nasal Cannula Weight: 140 lb 10.479 oz Body Mass Index (BMI) 24.9 Intake & Output: Intake and Output for Last 24 Hours 02/11/25 02/12/25 02/13/25 23:59 23:59 23:59 Intake Total 1999 4975 / 4975 2187.5 / 2187.5 Output Total 3400 / 3400 Balance 1999 1575 / 1575 2187.5 / 2187.5 Lab / Micro Data 02/13/25 04:56 02/13/25 04:56 Labs: Laboratory Results - last 24 hr 02/13/25 04:56: WBC 5.8, RBC 3.35 L, Hgb 10.2 L, Hct 33.5 L, MCV 100.0 H, MCH 30.4, MCHC 30.4 L D, RDW Std Deviation 63.8 H, RDW Coeff of Juan David 17.2 H, Plt Count 180, MPV 9.0, Immature Gran % (Auto) 0.500, Neut % (Auto) 70.8 H, Lymph % (Auto) 17.6 L, [place] % (Auto) 10.3 H, Eos % (Auto) 0.3, Baso % (Auto) 0.5, Absolute Neuts (auto) 4.1, Absolute Lymphs (auto) 1.02, Nucleated RBC % 0, Sodium 140, Potassium 5.9 H, Chloride 116 H, Carbon Dioxide 17.7 L, Anion Gap 7, BUN 10, Creatinine 0.73, Estim Creat Clear Calc 56.32, Est GFR (MDRD) Non-Af 86, BUN/Creatinine Ratio 13.1, Glucose 84, Calcium 7.9 Radiography Diagnostic Testing: Radiology Impression Small Bowel X-Ray 02/12/25 09:30 IMPRESSION: Again seen are a few moderately dilated small bowel loops, predominantly in the central to left abdomen. In the 11 hour film, contrast does extend into the cecum. The 20.5 hour film demonstrates contrast within the descending and sigmoid colon. Findings consistent with partial small bowel obstruction. Reading Location: [place] [address] Physical Exam Const alert and oriented x3 Constitutional Narrative: frail and weak General Appearance: cooperative HEENT normocephalic, head/scalp atraumatic and oropharynx normal Eyes PERRL and EOMs intact bilaterally Neck no lymphadenopathy and supple Lymph Lymphatic: no lymphadenopathy noted Resp normal respiratory effort, normal air movement and clear to auscultation bilaterally Cardio regular rate, regular rhythm, S1 normal heart sound, S2 normal heart sound and no murmurs GI normal to inspection, nondistended, normoactive bowel sounds, soft to palpation, non-tender and non-distended Extremity normal capillary refill and no clubbing, cyanosis or edema General Extremity: no tenderness to palpation of joints or extremities Skin General Skin Exam: no breakdown Neuro CN's II-XII intact bilaterally, no focal motor deficits, no sensory deficits noted and deep tendon reflexes 2+ bilaterally Motor Exam: general weakness Psych thought process normal Appearance: appropriate Assessment & Plan Assessment/Plan (1) Partial small bowel obstruction: (2) Abdominal pain: (3) Hypokalemia: (4) Delayed surgical wound healing: PLAN: Plan #Small bowel obstruction due to severe constipation * has a history of metastatic small cell cancer. Admitted with a complaint of abdominal pain as well as CT abdomen/pelvis suggestive of persistent small bowel obstruction. * had enemas and had resutant bowel movements * says abdominal pain has improved. Nausea has also resolved and she feels much better today * general surgery on board * IV zofran and compazine for nausea * has been started on clear liquid diet per general surgery. * #Hypokelamia: resolved #Hyperkalemia: patient now hyperkalemic today with potassium of 5.9. 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 * was on systemic chemotherapy and immunotherapy with carboplatin, etoposide as well as durvalumab. * now on immunotherapy * continue with oncology on outpatient basis. * #History of COPD: not in exacerbation. Breathing treatment with bronchodilators. #Abnormal urinalysis: Urinalysis showed 2+ bacteria. Has no urinary symptoms. Urine culture still pending #Depression and anxiety: resume meds as she has been started on clear liquid diet. #GERD: on PPI. DVt prophylaxis; SCDs. Charges/Coding Visit Charges Inpatient E&M: 96117 Subs Hosp L2
--- NOTE | 2025-02-13 10:38 | CASEMGMT ---
RYAN CM into pt room, pt sitting up in chair with dtr at bedside. Pt states she has oxygen at home through [employer]. Pt states she wears only with exertion. Pt dtr states she has a portable tank in her car for homegoing. TC to [employer], verified oxygen order at 2L cont.
[2025-02-13] MEDS: Albuterol 2.5 MG/3 ML VIAL.NEB. INHALATION (13:51)
[2025-02-13 13:53] VITALS: PULSE 100; RESP 16
[2025-02-13 15:01] VITALS: BP 130/69; PULSE 98; RESP 18; TEMP 36.7; O2SAT 99
[2025-02-13 20:58] VITALS: BP 129/75; PULSE 109; RESP 18; TEMP 37.2; O2SAT 99
[2025-02-14] MEDS: 0.9% Normal Saline (1000mL) 1,000 ML 150 ML IV ×2 (00:44→06:39)
[2025-02-14 00:45] VITALS: BP 131/88; PULSE 110; RESP 16; TEMP 36.6; O2SAT 97
[2025-02-14] MEDS: HYDROmorphone 0.5 MG/0.5 ML SYRINGE IV ×2 (03:56→11:46)
[2025-02-14] MEDS: 0.9% Saline Lock 10 ML Syringe IV ×2 (03:56→11:47)
[2025-02-14 06:29] LABS: Hematocrit 34.2 % (37-47); Hemoglobin 10.7 g/dL (12.0-15.0); Immature Granulocytes Count 0.020 X10^3/uL (0.0-0.0); Mean Corp Hgb Conc 31.3 g/dL (32-36); Mean Corpuscular Volume 98.8 fL (81-99); Mean Platelet Vol. 8.5 fl (6.2-12.0); NRBC Flagged by Analyzer 0 % (0-5); Platelet Count 163 K/mm3 (150-450); RBC Distribution Width CV 16.4 % (11.6-14.6); RBC Distribution Width SD 59.4 fl (35.1-43.9); Red Blood Count 3.46 M/mm3 (4.2-5.4); White Blood Count 4.3 K/mm3 (4.4-11.0)
[2025-02-14 06:50] VITALS: O2SAT 95
[2025-02-14 06:51] VITALS: BP 114/65; PULSE 96; RESP 18; TEMP 36.6; O2SAT 97
[2025-02-14 07:13] LABS: Anion Gap 7 (5-15); BUN 5 mg/dL (4-19); BUN/Creat Ratio 6.3 RATIO (10-20); Calcium,Total 8.0 mg/dL (7.6-11.0); Carbon Dioxide 20.9 mmol/L (21.0-32.0); Chloride 111 mmol/L (98-108); Estimated Creatinine Clearance 56.32 ml/min (50-250); Glucose 92 mg/dL (70-99); Potassium 3.9 mmol/L (3.3-5.1)
--- NOTE | 2025-02-14 07:15 | PN.SURG_ITS ---
Subjective Subjective Patient evaluated resting comfortably in bed. She notes single episode of nausea, however no vomiting. She denies any abdominal pain. She continues to note bowel movements. She states she had 17 bowel movements again yesterday. Objective Data Objective Data Vital Signs: Vital Signs Temp Pulse Resp BP Pulse Ox O2 Del Method O2 Flow Rate 97.9 F 96 18 114/65 97 Room Air 3 02/14/25 06:51 02/14/25 06:51 02/14/25 06:51 02/14/25 06:51 02/14/25 06:51 02/14/25 06:51 02/13/25 09:00 Oxygen Flow Rate (L/min) 3 Oxygen Delivery Method Room Air Weight: 140 lb 10.479 oz Body Mass Index (BMI) 24.9 Intake & Output: Intake and Output for Last 24 Hours 02/12/25 02/13/25 02/14/25 23:59 23:59 23:59 Intake Total 4975 / 4975 4737.5 / 4737.5 1822.5 / 1822.5 Output Total 3400 / 3400 1000 / 1000 Balance 1575 / 1575 3737.5 / 3737.5 1822.5 / 1822.5 Lab / Micro Data 02/14/25 06:16 02/14/25 06:16 Labs: Laboratory Results - last 24 hr 02/14/25 06:16: WBC 4.3 L, RBC 3.46 L, Hgb 10.7 L, Hct 34.2 L, MCV 98.8, MCH 30.9, MCHC 31.3 L, RDW Std Deviation 59.4 H, RDW Coeff of Juan David 16.4 H, Plt Count 163, MPV 8.5, Immature Gran % (Auto) 0.500, Neut % (Auto) 58.4, Lymph % (Auto) 25.1, [place] % (Auto) 14.8 H, Eos % (Auto) 0.7, Baso % (Auto) 0.5, Absolute Neuts (auto) 2.5, Absolute Lymphs (auto) 1.07, Nucleated RBC % 0, Sodium 139, Potassium 3.9, Chloride 111 H, Carbon Dioxide 20.9 L, Anion Gap 7, BUN 5, Creatinine 0.80, Estim Creat Clear Calc 56.32, Est GFR (MDRD) Non-Af 78, B UN/Creatinine Ratio 6.3 L, Glucose 92, Calcium 8.0 Radiography Diagnostic Testing: Radiology Impression Small Bowel X-Ray 02/12/25 09:30 IMPRESSION: Again seen are a few moderately dilated small bowel loops, predominantly in the central to left abdomen. In the 11 hour film, contrast does extend into the cecum. The 20.5 hour film demonstrates contrast within the descending and sigmoid colon. Findings consistent with partial small bowel obstruction. Reading Location: [facility] Physical Exam GI GI Narrative: Abdomen- soft, benign Assessment & Plan Assessment/Plan (1) Abdominal pain: QUALIFIERS: Abdominal location: generalized Qualified Code(s): R 10.84 - Generalized abdominal pain PLAN: I am following this patient in conjunction with Dr. Boyce. She will independently evaluate this patient. Labs reviewed. Potassium returned to normal. Increased diet to transitional diet If patient tolerates diet, she is able to be discharged from a surgical standpoint Charges/Coding Visit Charges Inpatient E&M: 90748 Subs Hosp L2
[2025-02-14 08:25] VITALS: BP 130/93; PULSE 95; RESP 18; TEMP 36.7; O2SAT 98
[2025-02-14 09:00] VITALS: RESP 18
[2025-02-14] MEDS: Pantoprazole Sodium 40 MG in 0.9% Normal Saline (100mL MB+) 100 ML 300 MG IV (10:35)
--- NOTE | 2025-02-14 11:54 | PCM.DC.SUM ---
Providers Date of Admission: 02/11/25 Date of Discharge: 02/14/25 Primary Care Physician: TORIBIO CASTILLO Consultations 02/11/25 19:48 Consult: General Surgery Routine Consulting Provider: Cristin Boyce Reason for Consult: Small bowel obstruction EMERGENT Consult: No MD Notified: Yes Date Notified: 02/11/25 Time Notified: 18:26 Method of Notification: ED Physician Initiated Reason For Visit: SMALL BOWEL OBSTRUCTION Diagnosis Discharge Diagnosis (1) Lung cancer: Status: Acute Code(s): C34.90 - Malignant neoplasm of unspecified part of unspecified bronchus or lung Plan #Small bowel obstruction due to severe constipation has a history of metastatic small cell cancer. Admitted with a complaint of abdominal pain as well as CT abdomen/pelvis suggestive of persistent small bowel obstruction. had enemas and had resutant bowel movements says abdominal pain has improved. Nausea has also resolved and she feels much better today general surgery on board IV zofran and compazine for nausea has been started on clear liquid diet per general surgery. #Hypokelamia: resolved #Hyperkalemia: patient now hyperkalemic today with potassium of 5.9. 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 was on systemic chemotherapy and immunotherapy with carboplatin, etoposide as well as durvalumab. now on immunotherapy continue with oncology on outpatient basis. #History of COPD: not in exacerbation. Breathing treatment with bronchodilators. #Abnormal urinalysis: Urinalysis showed 2+ bacteria. Has no urinary symptoms. Urine culture still pending #Depression and anxiety: resume meds as she has been started on clear liquid diet. #GERD: on PPI. DVt prophylaxis; SCDs. Medications at Discharge Home Medications albuterol sulfate 90 mcg/actuation aerosol inhaler 1 - 2 puff inhalation Q4H PRN PRN Sob &/Or Wheezing 08/24/19 loratadine 10 mg tablet 10 mg PO DAILY allergy 08/24/19 multivitamin 1 tab PO QAM supplement 09/18/24 albuterol sulfate 2.5 mg/3 mL (0.083 %) solution for nebulization 2.5 mg inhalation PRN PRN shortness of breath or wheezing 09/22/24 lidocaine-prilocaine 2.5 %-2.5 % topical cream 1 applic topical ONCE PRN port access 30 days #30 grams 10/26/24 ondansetron 8 mg disintegrating tablet 8 mg PO Q8H PRN nausea and vomiting #30 tabs 10/26/24 prochlorperazine maleate 10 mg tablet 10 mg PO Q6H PRN nausea and vomiting #30 tabs 10/26/24 budesonide-formoterol HFA 80 mcg-4.5 mcg/actuation aerosol inhaler 2 inh inhalation .x4 sob 11/09/24 buspirone 10 mg tablet 10 mg PO TID PRN anxiety 11/13/24 pantoprazole 40 mg tablet,delayed release 40 mg PO QDAY gerd 11/13/24 docusate sodium 100 mg capsule (Dulcolax Stool Softener (docusate)) 200 mg PO QDAY constipation 11/17/24 ferrous sulfate 325 mg (65 mg iron) tablet,delayed release 325 mg PO QDAY supplement 11/17/24 trazodone 100 mg tablet 100 mg PO QHS sleep 11/17/24 valacyclovir 500 mg tablet 500 mg PO QDAY PRN shingles 11/17/24 cyanocobalamin (vitamin B-12) 50 mcg tablet 50 mcg PO DAILY 02/11/25 durvalumab 50 mg/mL intravenous solution IV Q14D 02/11/25 famotidine 10 mg tablet 10 mg PO BID gerd 02/11/25 furosemide 20 mg tablet 20 mg PO DAILY PRN swelling 02/11/25 potassium chloride 20 mEq tablet,extended release(part/cryst) 20 meq PO DAILY sepplement 02/11/25 zinc citrate, zinc oxide 50 mg tablet 50 mg PO DAILY supplement 02/11/25 oxycodone-acetaminophen 5 mg-325 mg tablet 1 tab PO Q6H PRN pain 2 days #8 tabs 02/14/25 Hospital Course Operations None Procedures None Summary of Care Provided Minutes Spent on Discharge: 42 Hospital Course: Patient is a 74-year-old female with a past medical history as outlined including history of small cell lung cancer with mets to the adrenal gland was admitted to the ED on 02/11/2025 with plaint of nausea, vomiting and abdominal pain as well as bloating due to severe constipation. The symptoms started about 2 weeks prior. She was on oxycodone long-term for pain. She had had to disimpact herself a few days prior to admission but started having abdominal pain and distention again so she came into the ED. On admission CT of the abdomen and pelvis showed persistent small bowel obstruction. General surgery was consulted and was recommended that she have an NG tube inserted as well as to have enemas. She did have the enemas which help with bowel movements and the obstruction was subsequently resolved. She was started on clear liquid diet which she tolerated and was eventually advanced to transitional diet by general surgery. She was counseled to remain on the soft transitional diet for the next month. She felt much better and her pain improved. She was therefore discharged home on 02/14/2025. She is to follow-up with her primary care doctor within 1 to 2 weeks and also to follow-up with general surgery as well as her pain management doctor. Patient was on oxycodone 10 mg twice daily at home but said she did not want to take it because that had caused her constipation. Her oxycodone prescription was therefore canceled and she was discharged home at her request on p.o. Percocet 5 325 mg tablets 1 every 6 hours as needed for total of 8 tablets for 2 days. She is due to follow-up with her pain management doctor tomorrow 02/15/2025. Of note OARRS score was checked as she did have a prescription for 30-day supply of oxycodone 10 mg twice daily as needed given on 01/20/2025. Labs and vitals reviewed. Medication reviewed and reconciled. Patient seen and examined prior to discharge. She felt much better and had no active complaints. Review of systems otherwise negative. Labs and vitals reviewed. Home medication reviewed and reconciled. Physical Exam Const alert and oriented x3 Constitutional Narrative: frail and weak General Appearance: cooperative and comfortable HEENT normocephalic, head/scalp atraumatic and oropharynx normal Mouth: oral and palatal mucosa normal Eyes PERRL and EOMs intact bilaterally Neck no lymphadenopathy and supple Lymph Lymphatic: no lymphadenopathy noted Resp normal respiratory effort, normal air movement and clear to auscultation bilaterally Cardio regular rate, regular rhythm, S1 normal heart sound, S2 normal heart sound and no murmurs GI normal to inspection, nondistended, normoactive bowel sounds, soft to palpation, non-tender and non-distended Extremity normal to inspection, full ROM, normal capillary refill and no clubbing, cyanosis or edema General Extremity: no tenderness to palpation of joints or extremities Skin no rashes or lesions noted General Skin Exam: no breakdown Neuro oriented x3, CN's II-XII intact bilaterally, moves all extremities, no focal motor deficits, no sensory deficits noted and deep tendon reflexes 2+ bilaterally Sensorium / Orientation: awake and alert Motor Exam: general weakness Psych thought process normal Appearance: appropriate Weight / BMI Weight Weight: 140 lb 10.479 oz Body Mass Index (BMI) 24.9 ABG / Lab / Microbiology Data 02/14/25 06:16 02/14/25 06:16 Laboratory: Laboratory Results - last 24 hr 02/14/25 06:16: WBC 4.3 L, RBC 3.46 L, Hgb 10.7 L, Hct 34.2 L, MCV 98.8, MCH 30.9, MCHC 31.3 L, RDW Std Deviation 59.4 H, RDW Coeff of Juan David 16.4 H, Plt Count 163, MPV 8.5, Immature Gran % (Auto) 0.500, Neut % (Auto) 58.4, Lymph % (Auto) 25.1, [place] % (Auto) 14.8 H, Eos % (Auto) 0.7, Baso % (Auto) 0.5, Absolute Neuts (auto) 2.5, Absolute Lymphs (auto) 1.07, Nucleated RBC % 0, Sodium 139, Potassium 3.9, Chloride 111 H, Carbon Dioxide 20.9 L, Anion Gap 7, BUN 5, Creatinine 0.80, Estim Creat Clear Calc 56.32, Est GFR (MDRD) Non-Af 78, BUN/Creatinine Ratio 6.3 L, Glucose 92, Calcium 8.0 Microbiology: Microbiology 02/12/25 10:10 Urine, Clean Catch Urine Culture - Final Mixed Gram Pos & Gram Neg Org D/C Instructions Discharge Activity: Return to Normal Activity Weight Bearing Status: Weight bearing as tolerated Call your doctor if you observe: Fever of 101 or Higher, Shortness of breath, Dizziness, Swelling in the ankles and Chest pain DC O2, CPAP, BIPAP Needs Home O2 Discharge instructions: No DC home with Oxygen: No Meaningful Use Info Meaningful Use Meaningful Use Diagnoses (Choose all that apply): None applicable Discharge Plan Admission Admit Date/Time: 02/11/25 18:01 Primary Reason for Your Visit: small bowel obstruction due to constipation Attending Provider: Delia Mcqueen Primary Care Provider: GIOVANNI MAURER Consulting Providers: Cristin Boyce; Ami Magdaleno Instructions Additional Instructions / Restrictions: Recommend below diet for 2 weeks: What are low-fiber foods? If your doctor tells you to follow a low-fiber diet, here are low-fiber foods you can eat and higher-fiber foods you should avoid. Remember to always choose foods that you would normally eat. Do not try any foods that caused you discomfort or allergic reactions in the past. If you are on a ?low-residue diet,? your food choices are even more restricted than those listed below. Talk with your cancer care team or dietitian if you have questions about certain foods or amounts. Meat, fish, poultry, and protein Eat: Tender cuts of meat Ground meat Tofu Fish and shellfish Smooth peanut butter Eggs Bake, broil, or poach meats, and use mild seasonings. Try preparing meats as stews, roasts, meatloaves, casseroles, sandwiches, and soups using ingredients on the approved lists. Scramble, poach, or boil eggs; or make omelets, souffl?s, custard, puddings, and casseroles, using ingredients noted below. You might want to ask your doctor, nurse, or dietitian about other foods may be OK for you to eat, and find out when you can go back to your normal diet. Avoid: All beans, nuts, peas, lentils, and legumes Processed meats, hot dogs, sausage, and cold cuts Tough meats with gristle Dairy: Milk and cheese Eat: Only in small to medium amounts and only if they don?t cause problems for you Milk, chocolate milk, buttermilk, and milk drinks Yogurt without seeds or granola Sour cream Cheese Cottage cheese Custard or pudding Ice cream or frozen desserts (without nuts) Cream sauces, soups, and casseroles You can use these items in desserts, snacks, or breads. Bread, cereals, and grains Eat: White breads, waffles, Occitan toast, plain white rolls, or white bread toast Pretzels Plain pasta or noodles White rice Crackers, zwieback, thien, and matzoh (no cracked wheat or whole grains) Cereals without whole grains, added fiber, seeds, raisins, or other dried fruit Use white flour for baking and making sauces. Grains, such as white rice, Cream of Wheat, or grits, should be well-cooked. Include the above grains in casseroles, dumplings, souffl?s, cheese strata, kugels, and pudding. Avoid any food that contains: Brown or wild rice Whole grains, cracked grains, or whole wheat products Kasha (buckwheat) Cornbread or cornmeal [place] crackers Bran Wheat germ Nuts Granola Coconut Dried fruit Seeds Vegetables and potatoes Eat: Tender, well-cooked fresh or canned vegetables without seeds, stems, or skins Cooked sweet or white potatoes without skins Strained vegetable juices without pulp or spices You can also eat these with cream sauces, or in soups, souffl?s, kugels, and casseroles. Avoid: All raw or steamed vegetables All types of beans Potatoes with skin Peas [place] Cabbage, broccoli, cauliflower, [place] sprouts, and greens Sauerkraut Onions Fruits and desserts Eat: Soft canned or cooked fruit without seeds or skins (small amounts) Small amounts of well-ripened banana Strained or clear juices Small amounts of soft cantaloupe or honeydew melon Cookies and other desserts without whole grains, dried fruit, berries, nuts, or coconut Sherbet and popsicles Serving suggestions include gelatins, milk shakes, frozen desserts, puddings, tapioca, cakes, and sauces. Avoid: All raw or dried fruits Berries Prune juice, prunes, and raisins Other foods Eat: Mayonnaise and mild salad dressings Margarine, butter, cream, and oils in small amounts Plain gravies Plain bouillon and broth Ketchup and mild mustard Spices, cooked herbs, and salt Sugar, honey, and syrup Clear jellies Hard candy and marshmallows Plain chocolate Avoid: Marmalade Pickles, olives, relish, and horseradish Popcorn Potato chips Liquids Keep in mind that low-fiber foods cause fewer bowel movements and smaller stools. You may need to drink extra fluids to help prevent constipation while you are on a low-fiber diet. Drink plenty of water unless your doctor tells you otherwise, and use juices and milk as noted above. Discharge Orders/Prescriptions Prescriptions: New oxycodone-acetaminophen 5-325 mg tablet 1 tab PO Q6H PRN (Reason: pain) 2 Days Qty: 8 0RF Continued multivitamin Tablet 1 tab PO QAM albuterol sulfate 2.5 mg /3 mL (0.083 %) solution for nebulization 2.5 mg inhalation PRN PRN (Reason: shortness of breath or wheezing) Patient Comments: [NO ORIGINAL SIG] prochlorperazine maleate 10 mg tablet 10 mg PO Q6H PRN (Reason: nausea and vomiting) Qty: 30 2RF ondansetron 8 mg tablet,disintegrating 8 mg PO Q8H PRN (Reason: nausea and vomiting) Qty: 30 2RF lidocaine-prilocaine 2.5-2.5 % cream 1 applic topical ONCE PRN (Reason: port access) 30 Days Qty: 30 2RF pantoprazole 40 mg tablet,delayed release (DR/EC) 40 mg PO QDAY docusate sodium [Dulcolax Stool Softener (dss)] 100 mg capsule 200 mg PO QDAY ferrous sulfate 325 mg (65 mg iron) tablet,delayed release (DR/EC) 325 mg PO QDAY valacyclovir 500 mg tablet 500 mg PO QDAY PRN (Reason: shingles) albuterol sulfate 1 INHALER inhaler 1 - 2 puff inhalation Q4H PRN PRN (Reason: Sob &/Or Wheezing) loratadine 10 MG tablet 10 mg PO DAILY buspirone 10 mg tablet 10 mg PO TID PRN (Reason: anxiety) durvalumab 50 mg/mL solution IV Q14D zinc citrate, zinc oxide 50 mg tablet 50 mg PO DAILY cyanocobalamin (vitamin B-12) 50 mcg tablet 50 mcg PO DAILY famotidine 10 mg tablet 10 mg PO BID potassium chloride 20 mEq tablet,ER particles/crystals 20 meq PO DAILY furosemide 20 mg tablet 20 mg PO DAILY PRN (Reason: swelling) budesonide-formoterol 80-4.5 mcg/actuation HFA aerosol inhaler 2 inh INHALATION .x4 Patient Comments: [NO ORIGINAL SIG] Rx Instructions: 2 puffs in morning, 2 puffs at night trazodone 100 mg tablet 100 mg PO QHS Discontinued oxycodone 10 mg tablet 10 mg PO BID PRN (Reason: pain) Referrals / Follow Up: Cristin Boyce MD [Med Staff - Active Staff] - Within 1 Week GIOVANNI MAURER CRNP [Primary Care Provider] - Within 1 Week Disposition Disposition (needs filled in before D/C Order can be placed): Home, Self Care Charges/Coding Visit Charges Inpatient E&M: 15278 Disch Hosp >30min
[2025-02-14 14:14] VITALS: BP 146/79; PULSE 96; RESP 18; TEMP 36.6; O2SAT 98
--- NOTE | 2025-02-14 15:09 | PHA.DC.MR.R ---
Pharmacy [place] Med Reconciliation Pharmacy Service has performed discharge medication reconciliation for this patient. Medication education paper prepared, patient discharged when counseling was attempted. The patient's discharge medication list was reviewed for discrepancies and discrepancies were resolved. Medications at Discharge Home Medications albuterol sulfate 90 mcg/actuation aerosol inhaler 1 - 2 puff inhalation Q4H PRN PRN Sob &/Or Wheezing 08/24/19 loratadine 10 mg tablet 10 mg PO DAILY allergy 08/24/19 multivitamin 1 tab PO QAM supplement 09/18/24 albuterol sulfate 2.5 mg/3 mL (0.083 %) solution for nebulization 2.5 mg inhalation PRN PRN shortness of breath or wheezing 09/22/24 lidocaine-prilocaine 2.5 %-2.5 % topical cream 1 applic topical ONCE PRN port access 30 days #30 grams 10/26/24 ondansetron 8 mg disintegrating tablet 8 mg PO Q8H PRN nausea and vomiting #30 tabs 10/26/24 prochlorperazine maleate 10 mg tablet 10 mg PO Q6H PRN nausea and vomiting #30 tabs 10/26/24 budesonide-formoterol HFA 80 mcg-4.5 mcg/actuation aerosol inhaler 2 inh inhalation .x4 sob 11/09/24 buspirone 10 mg tablet 10 mg PO TID PRN anxiety 11/13/24 pantoprazole 40 mg tablet,delayed release 40 mg PO QDAY gerd 11/13/24 docusate sodium 100 mg capsule (Dulcolax Stool Softener (docusate)) 200 mg PO QDAY constipation 11/17/24 ferrous sulfate 325 mg (65 mg iron) tablet,delayed release 325 mg PO QDAY supplement 11/17/24 trazodone 100 mg tablet 100 mg PO QHS sleep 11/17/24 valacyclovir 500 mg tablet 500 mg PO QDAY PRN shingles 11/17/24 cyanocobalamin (vitamin B-12) 50 mcg tablet 50 mcg PO DAILY 02/11/25 durvalumab 50 mg/mL intravenous solution IV Q14D 02/11/25 famotidine 10 mg tablet 10 mg PO BID gerd 02/11/25 furosemide 20 mg tablet 20 mg PO DAILY PRN swelling 02/11/25 potassium chloride 20 mEq tablet,extended release(part/cryst) 20 meq PO DAILY sepplement 02/11/25 zinc citrate, zinc oxide 50 mg tablet 50 mg PO DAILY supplement 02/11/25 oxycodone-acetaminophen 5 mg-325 mg tablet 1 tab PO Q6H PRN pain 2 days #8 tabs 02/14/25
== END 2025-02-14 14:33 | disposition home or self-care (01) | DRG 388 ==
LOC: ED 17:40 → MS3 18:14
PROVIDERS: Admitting Provider Internal Medicine; Emergency Provider Emergency Medicine; PCP Nurse Practitioner Adult Health; Visit Provider Student in an Organized Health Care Education/Training Program
DX: K56.600 Partial intestinal obstruction, unspecified as to cause (principal); E43 Unspecified severe protein-calorie malnutrition; C77.1 Secondary and unspecified malignant neoplasm of intrathoracic lymph nodes; C79.72 Secondary malignant neoplasm of left adrenal gland; C78.7 Secondary malignant neoplasm of liver and intrahepatic bile duct; C34.12 Malignant neoplasm of upper lobe, left bronchus or lung; C79.89 Secondary malignant neoplasm of other specified sites; J44.9 Chronic obstructive pulmonary disease, unspecified; F32.A Depression, unspecified; I10 Essential (primary) hypertension; E78.5 Hyperlipidemia, unspecified; K21.9 Gastro-esophageal reflux disease without esophagitis; E87.6 Hypokalemia; E87.5 Hyperkalemia; F41.9 Anxiety disorder, unspecified; Z79.899 Other long term (current) drug therapy; Z87.891 Personal history of nicotine dependence; Z79.51 Long term (current) use of inhaled steroids; Z68.24 Body mass index [BMI] 24.0-24.9, adult
CPT/HCPCS: 36415; 74018; 74177; 74250; 80048; 80053; 81001; 83690; 83735; 84443; 85025; 87086; 87088; 94640; 99285; Q9967; A4216; J2405

== ENCOUNTER → 2025-02-19 | Outpatient (CLI) | payer MEDICARE, SELFPAY ==
--- NOTE | 2025-02-19 09:07 | ECHOL_ITS ---
Reason For Study Reason For Study: Pericardial Effusion Procedure This was a limited 2D transthoracic echocardiogram. Myocardial strain analysis was performed in this exam to aid in the assessment of cardiac function. Patient refused Definity. Exam performed in department. Left Ventricle Normal LV size. The global longitudinal strain = -17.6 % (normal). The left ventricular ejection fraction is 55 %. No regional wall motion abnormalities noted. Right Ventricle Normal RV size. Normal systolic function. Atria Normal left atrium. Normal right atrium. Lipomatous hypertrophy of the atrial septum. Mitral Valve Normal mitral valve. Tricuspid Valve Normal tricuspid valve. Mild (1+) tricuspid valve insufficiency. Pulmonary artery systolic pressure is 42 mmHg. Pulmonic Valve Normal pulmonic valve. Great Vessels Normal aortic root. The pulmonary artery is normal size. Inferior vena cava collapse with respiration. Pericardium/Pleural Trivial pericardial effusion. MMode/2D Measurements & Calculations LVIDd: 4.1 cm IVSd: 0.81 cm LAV(MOD-sp4): 50.5 ml LVIDs: 2.6 cm LVPWd: 0.79 cm RVDd: 3.3 cm FS: 36.8 % LVAd ap4: 23.6 cm2 SV(MOD-sp4): 35.8 ml SV(sp4-el): 38.1 ml LVLd ap4: 6.9 cm SI(MOD-sp4): 20.5 ml/m2 EDV(MOD-sp4): 65.0 ml EDV(sp4-el): 68.6 ml LVAs ap4: 15.1 cm2 LVLs ap4: 6.3 cm ESV(MOD-sp4): 29.3 ml ESV(sp4-el): 30.5 ml EF(MOD-sp4): 55.0 % EF(sp4-el): 55.5 % LA A4 area: 17.0 cm2 RA A4 area: 12.9 cm2 Doppler Measurements & Calculations TR max tiki: 309.1 cm/sec TR max P.2 mmHg ECHO/Echo, Limited Study Interpretation Summary Normal LV size. The global longitudinal strain = -17.6 % (normal). The left ventricular ejection fraction is 55 %. Lipomatous hypertrophy of the atrial septum. Mild (1+) tricuspid valve insufficiency. Pulmonary artery systolic pressure is 42 mmHg. Ordering Physician: Kilo Morse Referring Physician: GIOVANNI MAURER Performed By: Kenneth Lopez RCS
== END | disposition home or self-care (01) ==
LOC: CVS 09:04
PROVIDERS: PCP Nurse Practitioner Adult Health; Referring Provider Nurse Practitioner Adult Health; Visit Provider Internal Medicine Cardiovascular Disease
DX: R60.0 Localized edema (principal)
CPT/HCPCS: 93308

== ENCOUNTER → 2025-02-26 | Outpatient (CLI) | payer MEDICARE, SELFPAY ==
--- NOTE | 2025-02-26 11:45 | MRI_ITS ---
PROCEDURE: BRAIN W/WO CONTRAST 02/26/2025 REASON FOR EXAM: NAUSEA; SCLC R/O BRAIN MET TECHNIQUE: BRAIN W/WO CONTRAST Multiplanar and multisequence images were obtained. CONTRAST: Clariscan VOLUME: 13 mL COMPARISON: MRI brain with and without contrast, 10/17/2024 FINDINGS: There are 3 small areas of abnormal subcortical white matter signal abnormality, on the T2 and FLAIR images, in the left temporal lobe. There is no associated restricted diffusion or contrast enhancement. These areas were not apparent on the prior MR examination. There is no abnormal intracranial contrast enhancement. There is a normal sulcal pattern and gyral configuration. There is no evidence of acute intracranial hemorrhage or infarction. The mcneill-white differentiation is well preserved. There is no evidence of restricted diffusion. The ventricles and basilar cisterns are normal. There are normal flow voids demonstrated in the recognized intracranial vessels. The cerebellum and brainstem are unremarkable. The cerebellar pontine angles are normal. The craniovertebral junction is normal. The sella and suprasellar regions are normal. The orbits and retro-orbital regions are unremarkable. The nasal septum is midline. The paranasal sinuses are clear. The mastoid air cells are clear. There is normal bone marrow signal in the skull base and calvarium. MRI/Brain W/WO Contrast IMPRESSION: 1. Small areas of abnormal T2 and FLAIR signal in the left temporal lobe, as d escribed. These were not apparent previously. The cause of these abnormalities is unclear but is most commonly associated wit h inflammation or primary neoplasm. No references to medication-related cause could be found. 2. Other findings as noted. Reading Location: [place] [id number]
== END | disposition home or self-care (01) ==
LOC: OPMRI 10:45
PROVIDERS: PCP Nurse Practitioner Adult Health; Referring Provider Nurse Practitioner Family; Visit Provider Nurse Practitioner Family
DX: R11.0 Nausea (principal); C79.72 Secondary malignant neoplasm of left adrenal gland; C78.7 Secondary malignant neoplasm of liver and intrahepatic bile duct; C34.02 Malignant neoplasm of left main bronchus
CPT/HCPCS: 70553; A9575

== ENCOUNTER 2025-03-18 12:02 | Emergency (ER) | payer MEDICARE, SELFPAY ==
[2025-03-18 12:03] VITALS: BP 113/79; PULSE 107; RESP 19; TEMP 36.4; O2SAT 100
--- NOTE | 2025-03-18 12:09 | EX.ED.GENINJ ---
HPI History of Present Illness Chief Complaint: Other, Pain/Inj PFSH PFSH Medical History Abdominal pain Hypokalemia Partial small bowel obstruction Delayed surgical wound healing Constipation Pericardial effusion Hilar mass Right atrial mass Genital herpes Osteoporosis Migraine Hyperlipidemia Hiatal hernia GERD (gastroesophageal reflux disease) Depression Chronic kidney disease (CKD) Bilateral leg edema Thyroid enlargement Hypokalemia Wears dentures Wears glasses Post-menopausal Cancer History of steroid therapy Arthritis Back pain History of hiatal hernia Gastric reflux Former smoker On home oxygen therapy Asthma Shortness of breath on exertion Hoarseness Chronic cough History of edema Cardiology follow-up encounter History of echocardiogram Hypertension Coughing up blood Chest pain Anemia Encounter for antineoplastic immunotherapy Encounter for chemotherapy management Small cell lung cancer Encounter for education 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 COPD (chronic obstructive pulmonary disease) Home Medications ?Medication ?Instructions ?Recorded ?Last Taken ?Type albuterol sulfate 90 mcg/actuation 1 - 2 puff inhalation Q4H PRN PRN 08/24/19 Unknown History aerosol inhaler Sob &/Or Wheezing loratadine 10 mg tablet 10 mg PO DAILY allergy 08/24/19 02/10/25 09:00 History multivitamin 1 tab PO QAM supplement 09/18/24 02/10/25 09:00 History buspirone 10 mg tablet 10 mg PO TID PRN anxiety 11/13/24 02/10/25 22:00 History pantoprazole 40 mg tablet,delayed 40 mg PO QDAY gerd 11/13/24 02/10/25 09:00 History release docusate sodium 100 mg capsule 200 mg PO QDAY constipation 11/17/24 02/10/25 22:00 History (Dulcolax Stool Softener (docusate)) trazodone 100 mg tablet 100 mg PO QHS sleep 11/17/24 02/10/25 21:00 History cyanocobalamin (vitamin B-12) 50 50 mcg PO DAILY 02/11/25 Unknown History mcg tablet durvalumab 50 mg/mL intravenous IV Q14D 02/11/25 Unknown History solution furosemide 20 mg tablet 20 mg PO DAILY PRN swelling 02/11/25 02/10/25 09:00 History zinc citrate, zinc oxide 50 mg 50 mg PO DAILY supplement 02/11/25 02/10/25 09:00 History tablet oxycodone-acetaminophen 5 mg-325 1 tab PO .qid pain 02/20/25 Unknown History mg tablet potassium chloride 20 mEq 20 meq PO DAILY #30 tabs 02/20/25 Unknown Rx tablet,extended release(part/cryst) prochlorperazine maleate 10 mg 10 mg PO Q8H PRN nausea/vomiting 03/06/25 Unknown History tablet prochlorperazine maleate 10 mg 10 mg PO Q6-8H PRN nausea and 03/06/25 Unknown Rx tablet (Compazine) vomiting #30 tabs hydrochlorothiazide 25 mg tablet 25 mg PO DAILY 03/18/25 Unknown History metoclopramide HCl 10 mg tablet 10 mg PO 4X/DAY 03/18/25 Unknown History oxycodone-acetaminophen 5 mg-325 1 tab PO Q6H PRN PRN Pain 3 days 03/18/25 Unknown Rx mg tablet #12 TABLETS spironolactone 25 mg tablet 25 mg PO DAILY PRN swelling 03/18/25 Unknown History Allergy/AdvReac Type Severity Reaction Status Date / Time calcipotriene Allergy Severe Rash Verified 03/06/25 11:16 Opioids - Morphine Analogues Allergy Severe Hives Verified 03/06/25 11:16 alendronate sodium (From Allergy Pain in Verified 03/06/25 11:16 Fosamax) joints cefaclor (From Ceclor) Allergy Hives Verified 03/06/25 11:16 ezetimibe Allergy Other Verified 03/06/25 11:16 Penicillins Allergy Hives Verified 03/06/25 11:16 tramadol HCl (From Ultram) Allergy Hives Verified 03/06/25 11:16 hydrochlorothiazide AdvReac Unknown reaction Verified 03/06/25 11:16 erythromycin base AdvReac Nausea Verified 03/06/25 11:16 Family History Mother Leukemia Osteoporosis Thyroid disorder Grandfather Brain cancer Father Respiratory disease Brother Heart disease Surgical History History of tubal ligation History of bunionectomy History of carpal tunnel surgery of right wrist History of eyelid surgery History of shoulder surgery History of carpal tunnel release History of bilateral knee replacement H/O breast biopsy History of appendectomy Previous back surgery Social History (Reviewed 03/06/25 @ 11:16 by Josselin Zarate Smoking Status: Former smoker Tobacco: How many years used: 30 alcohol intake: never EXAM Physical Exam Const Vital Signs: 03/18/25 12:03 03/18/25 12:20 Temperature 97.6 F L Temperature Source Temporal Pulse Rate 107 H Respiratory Rate 19 H Respiratory Effort Normal Non-Labored Respiratory Pattern Normal Blood Pressure 113/79 Blood Pressure Mean 90 Pulse Ox 100 Oxygen Delivery Method Nasal Cannula Oxygen Flow Rate (L/min) 3 [facility] [place] Narrative Medical decision making narrative: HISTORY OF PRESENT ILLNESS: Chief complaint: Pain 74-year-old female history of metastatic cancer presents with concern for prescription refill. States she was unable to fill her pain prescription. REVIEW OF SYSTEMS: Pertinent positives: Pain Pertinent negatives: Fever, cough, leg swelling, chest pain, shortness of breath, abdominal pain PHYSICAL EXAM: Nursing triage notes reviewed, Vital signs reviewed Constitutional: please see mdm HENT: MMM Eyes: Pupils equal round and reactive to light, Extraocular muscles intact Neck: No stridor, no JVD, full neck ROM Lungs: Clear to auscultation, No wheezing or rales. No increased work of breathing, no conversational dyspnea, no accessory muscle use, no nasal flaring. No respiratory distress noted Heart: Regular rate and rhythm, No murmurs, No rubs and No gallops, 2+ distal pulses (radial, femoral, posterior tibial) in all extremities Abdomen: Soft, there is no tenderness, rigidity, rebound or guarding, no obvious peritoneal signs, no palpable pulsatile abdominal masses, no auscultated abdominal bruit : No CVAT Extremities: No edema Neuro: No new focal neurological deficits, cranial nerves II through XII intact, 5/5 strength in all present extremities. Intact sensation to light touch in all present extremities, 2+ reflexes bilateral patella tendons. Skin: No rash or lesions noted MEDICAL DECISION MAKING: Chief Complaint: please see HPI External records reviewed: PDMP reviewed: Recent oxycodone prescription filled on 03/16/2025 this was for 30 days with a quantity 120 tablets. Factors affecting care: History of cancer Social determinants of health: none History obtained from others: none Consults: none [facility] Narrative: The patient was initially hemodynamically stable, afebrile and nontoxic-appearing. Refilled oxycodone prescription for the next 2 days. Gave a dose here. Discharged patient The patient and/or family, caregivers express understanding. The patient and/or family, caregivers agrees with the plan. Shared decision making: I will have a discussion with the patient and or visitors regarding risk/benefits of further testing or admission. They will be made aware of of the risk/benefits inherent in this decision they will be given the opportunity to voice understanding. Total critical care time today provided was at least 0 minutes. This excludes separately billable procedures. Critical care time (if documented) is secondary to the patient having high probability of clinically significant/life threatening deterioration in the patient's condition which required my urgent intervention. Impression: 1. Encounter for med refill 2. History of cancer Dispo: Discharge home This note was generated with [employer] dictation software. It may contain incorrect words, spelling, and punctuation that were not noted in review of the chart prior to signing. Discharge Plan Triage Chief Complaint: Other, Pain/Inj ED Provider: Georgi Barroso Dx/Rx/DC Orders Instructions: ED Chronic Pain Prescriptions: New oxycodone-acetaminophen 5-325 mg tablet 1 tab PO Q6H PRN PRN (Reason: Pain) 3 Days Qty: 12 0RF No Action multivitamin Tablet 1 tab PO QAM pantoprazole 40 mg tablet,delayed release (DR/EC) 40 mg PO QDAY docusate sodium [Dulcolax Stool Softener (dss)] 100 mg capsule 200 mg PO QDAY oxycodone-acetaminophen 5-325 mg tablet 1 tab PO .qid potassium chloride 20 mEq tablet,ER particles/crystals 20 meq PO DAILY Qty: 30 0RF prochlorperazine maleate [Compazine] 10 mg tablet 10 mg PO Q6-8H PRN (Reason: nausea and vomiting) Qty: 30 2RF albuterol sulfate 1 INHALER inhaler 1 - 2 puff inhalation Q4H PRN PRN (Reason: Sob &/Or Wheezing) loratadine 10 MG tablet 10 mg PO DAILY buspirone 10 mg tablet 10 mg PO TID PRN (Reason: anxiety) prochlorperazine maleate 10 mg tablet 10 mg PO Q8H PRN (Reason: nausea/vomiting) durvalumab 50 mg/mL solution IV Q14D zinc citrate, zinc oxide 50 mg tablet 50 mg PO DAILY cyanocobalamin (vitamin B-12) 50 mcg tablet 50 mcg PO DAILY furosemide 20 mg tablet 20 mg PO DAILY PRN (Reason: swelling) spironolactone 25 mg tablet 25 mg PO DAILY PRN (Reason: swelling) hydrochlorothiazide 25 mg tablet 25 mg PO DAILY metoclopramide HCl 10 mg tablet 10 mg PO 4X/DAY trazodone 100 mg tablet 100 mg PO QHS Primary Care Provider: GIOVANNI MAURER Referrals: GIOVANNI MAURER CRNP [Primary Care Provider] - Activity Restrictions/Additional Instructions: Thank you for trusting us with your care today! Please take Tylenol (2 pills, 650 mg), ibuprofen (2 pills, 400 mg) every 6 hours as needed for pain and fever control. Please take oxycodone?acetaminophen for breakthrough pain. Please return to the emergency department if your symptoms change or worsen. Please follow with your primary care physician for further outpatient evaluation and management. Print Language: Barbadian Disposition Disposition: Home, Self Care Discharge Date/Time: 03/18/25 12:35
--- OUTSIDE RECORDS SUMMARY | 2025-03-18 12:27 | XMS RPT_ITS | CCD ---
Author Organization [facility] Care Team Providers Care Shift Mgr Name Role Phone TU HECTOR DO Primary Care Physician [phone] Unavailable Primary Care Provider UnavailTu Prieto DO Primary Care Provider [phone] TU HECTOR DO Primary Care Physician [phone] CHRIS ALATORRE DO Attending Unavailable TAWNY CAT, TU Primary Care Unavailable TAWNY DO, TU Primary Care Unavailable TU HECTOR DO Attending Unavailable TAWNY DO, TU Primary Care Unavailable TU HECTOR DO Attending Unavailable TAWNY DO, TU Primary Care Unavailable TAWNY CAT, TU Attending Unavailable TAWNY CAT, TU Primary Care [...] Primary Care Provider UnavailSERGIO Stone Referring Unavailable Dr. Tu Hector DO Primary Care Provider [phone] Dr. Anh Irene DO Attending Provider Dr. Anh Irene DO Emergency Provider Dr. Chris Maria MD Attending Provider Dr. Chris Maria MD Emergency Provider Dr. Chris Maria MD Referring Provider Robson MYERS, Dr. Snell Attending Provider Dr. Alis Chance MD Referring Provider Dr. Tu Hector DO Referring Provider eDstini TRUCKING SUPERVISOR-C, Rhiannon Attending Provider Destini TRUCKING SUPERVISOR-C, Rhiannon Referring Provider Dr. Marty Woods DO Emergency Provider Dr. Marty Woods DO Attending Provider Dr. Tu Hector DO Attending Provider Dr. Tu Hector DO Primary Care Provider [phone] Tay Dumont MD Emergency Provider JOSELYN TUCKER Attending Unavailable MAST, JOSELIN Referring Unavailable TAWNY, TU Primary Care Unavailable FORTUNE, LIZANDRO Attending Unavailable TAWNY, TU Primary Care Unavailable YARITZA JOHNSON Attending Unava ilable TAWNY, TU Primary Care Unavailable WILFRIDO LUIS Attending Unavailable TAWNY, UT Primary Care Unavailable FORTUNE, LIZANDRO Attending Unavailable FORTUNE, LIZANDRO Referring Unavailable TAWNY, TU Primary Care Unavailable FORTUNE, LIZANDRO Attending Unavailable FORTUNE, LIZANDRO Referring Unavailable TAWNY, TU Primary Care Unavailable NONE, PCP Referring Unavailable TAWNY, TU Primary Care Unavailable JEFFREY HORNE Attending Unavailable JEFFREY HORNE Admitting Unavailable JACKIEMANUELITO PARISIAN Admitting Unavailable JACKIEDAIJA Attending Unavailable TAWNY, TU Primary Care Unavailable DAYNA-YARITZA KAMARA Attending Unava ilable TAWNY, TU Primary Care Unavailable FORTUNE, LIZANDRO Attending Unavailable TAWNY, TU Primary Care Unavailable TAWNY DO, TU Primary Care Unavailable ENID FORMAN MD Attending Unavailable NOHEMY MYERS, DR JANNETH Browne Attending Unavai ellyn HECTOR DO, TU Primary Care Unavailable Tay Dumont MD Attending Provider Dr. Wilfrido Karimi MD Attending Provider [phone] Audelia TRUCKING SUPERVISOR-C, Anayeli Attending Provider Dr. Omar Hicks MD Attending Provider Fabiola MYERS, Dr. Nelson Referring Provider Fabiola MYERS, Dr. Nelson Other Provider Lito MYERS, Dr. Boateng Attending Provider Dr. Alis Chance MD Referring Provider Dr. Alis Chance MD Referring Provider Dr. Tu Hector DO Primary Care Provider [phone]) Destini TRUCKING SUPERVISOR-C, Rhiannon Attending Provider Destini TRUCKING SUPERVISOR-C, Rhiannon Referring Provider Conor CAT, Dr. Garcia Attending Provider Dr. Tu Hector DO Referring Provider Dr. Alis Chance MD Attending Provider Dr. Alis Chance MD Referring Provider Audelia TRUCKING SUPERVISOR-C, Anayeli Referring Provider Dr. Alis Chance MD Referring Provider Dr. Tu Hector DO Primary Care Provider 1(3 30) Dr. Tu Hector DO Referring Provider MAST JOSELIN ROONEY Primary Care Provider [phone] Dr. Georgi Barroso DO Emergency Provider Dr. Tu Hector DO Primary Care Provider 1(3 30) Dr. Tu Hector DO Referring Provider Dr. Georgi Barroso DO Attending Provider Rasta MYERS, Dr. Mueller Admit Provider Dr. Ami Magdaleno MD Attending Provider Dr. Tu Hector DO Primary Care Provider 1(3 30) Tay Dumont MD Attending Provider Tay Dumont MD Emergency Provider Dr. Tu Hector DO Referring Provider Sachi MYERS, Dr. Anna Attending Provider Audelia TRUCKING SUPERVISOR-C, Anayeli Attending Provider Fabiola MYERS, Dr. Nelson Attending Provider Fabiola MYRES, Dr. Nelson Referring Provider Fabiola MYERS, Dr. Nelson Other Provider Lito MYERS, Dr. Boateng Attending Provider Robson MYERS, Dr. Snell Attending Provider Audelia TRUCKING SUPERVISOR-C, Anayeli Referring Provider Robson MYERS, Dr. Snell Referring Provider MAST JOSELIN ROONEY Primary Care Provider Dr. Georgi Barroso DO Attending Provider Dr. Georgi Barroso DO Emergency Provider Rasta MYERS, Dr. Mueller Admit Provider Rasta MYERS, Dr. Mueller Other Provider Carli MYERS, Dr. Amaral Other Provider Charisse MYERS, Dr. Delia Singh Attending Provider Carli MYERS, Dr. Amaral Attending Provider Charisse MYERS, Dr. Delia Singh Other Provider Heena Courtney PA-C Attending Provider Dr. Tu Hector DO Primary Care Provider Tay Dumont MD Emergency Provider Rasta MYERS, Dr. Mueller Other Provider Carli MYERS, Dr. Amaral Other Provider Charisse MYERS, Dr. Delia Singh Attending Provider Carli MYERS, Dr. Amaral Attending Provider Charisse MYERS, Dr. Delia Singh Other Provider Heena Courtney PA-C Attending Provider MAST BATTERY PARTS ASSEMBLER, JOSELIN Referring Provider [phone] Mohan MYERS, Dr. Buenrostro Attending Provider Dr. Alis Chance MD Referring Provider Tawny CAT, Dr. Mata Primary Care Provider 1( [phone]) Tawny CAT, Dr. Mata Referring Provider Audelia TRUCKING SUPERVISOR-C, Anayeli Attending Provider Fabiola MYERS, Dr. Nelson Attending Provider [phone] Tawny CAT, Dr. Mata Primary Care Provider 1( [phone]) Tawny CAT, Dr. Mata Referring Provider Audelia TRUCKING SUPERVISOR-C, Anayeli Attending Provider Charisse MYERS, Dr. Delia Singh Referring Provider Tay Dumont Attending Unavailable Tawny, Tu Primary Care Unavailable Georges TRUCKING SUPERVISOR, Rhiannon Referring Unavailable Georges TRUCKING SUPERVISOR, Rhiannon Attending Unavailable Tawny, Tu Primary Care Unavailable Tawny, Tu Attending Unavailable Tawny, Tu Referring Unavailable Tawny, Tu Primary Care Unavailable Koram Delia Samantha Attending Unavailable Magdaleno, Ami Admitting Unavailable MAST, JOSELIN Primary Care Unavailable Robotham, Cristin Consulting Unavailable Magdaleno, Ami Consulting Unavailable Koram, Delia Samantha Consulting Unavailable Georges TRUCKING SUPERVISOR, Rhiannon Attending Unavailable Georges TRUCKING SUPERVISOR, Rhiannon Referring Unavailable Tawny, Tu Primary Care Unavailable Alis Chance Attending Unavailable Alis Chance Referring Unavailable Tawny, Tu Primary Care Unavailable Koram, Delia Samantha Attending Unavailable MAST, JOSELIN Primary Care Unavailable Magdaleno, Ami Admitting Unavailable Robotham, Cristin Consulting Unavailable Magdaleno, Ami Consulting Unavailable Tawny, Tu Primary Care Unavailable Omar Hicks Referring Unavailable Omar Hicks Attending Unavailable Anh Irene Attending Unavailable Tawny, Tu Primary Care Unavailable Heena Courtney Attending Unavailable Tawny, Tu Primary Care Unavailable Chris Maria Attending Unavailable MAST, JOSELIN Primary Care Unavailable Chio, Georgi Attending Unavailable Tawny, Tu Primary Care Unavailable Audelia TRUCKING SUPERVISOR, Anayeli Attending Unavailable Audelia TRUCKING SUPERVISOR, Anayeli Referring Unavailable MAST, JOSELIN Primary Care Unavailable MAST, JOSELIN Referring Unavailable Kilo Morse Attending Unavailable MAST, JOSELIN Primary Care Unavailable Audelia TRUCKING SUPERVISOR, Anayeli Attending Unavailable Audelia TRUCKING SUPERVISOR, Anayeli Referring Unavailable Georges TRUCKING SUPERVISOR, Rhiannon Referring Unavailable Georges TRUCKING SUPERVISOR, Rhiannon Attending Unavailable Tawny, Tu Primary Care Unavailable IsckarusMauriceour Attending Unavailable Isckarus, Mansour Referring Unavailable Tawny, Tu Primary Care Unavailable Isckarus, Mansour Attending Unavailable Tawny, Tu Primary Care Unavailable Chris Maria Referring Unavailable Tawny, Tu Primary Care Unavailable Tawny, Tu Referring Unavailable Kilo Morse Attending Unavailable Tawny, Tu Referring Unavailable Tawny, Tu Primary Care Unavailable Isckarus, Mansour Attending Unavailable Marty Woods Attending Unavailable Tawny, Tu Primary Care Unavailable Jose Perdomo Attending Unavailable Tawny, Tu Primary Care Unavailable Tawny, Tu Referring Unavailable Tawny, Tu Primary Care Unavailable Audelia TRUCKING SUPERVISOR, Anayeli Attending Unavailable Tawny, Tu Referring Unavailable Tawny, Tu Primary Care Unavailable CalOmar beauchamp Attending Unavailable Tawny, Tu Primary Care Unavailable Tawny, Tu Referring Unavailable Audelia TRUCKING SUPERVISOR, Anayeli Attending Unavailable Tawny, Tu Primary Care Unavailable Tawny, Tu Referring Unavailable Isckarus, Mansour Attending Unavailable MAST, JOSELIN Primary Care Unavailable MAST, JOSELIN Referring Unavailable Audelia TRUCKING SUPERVISOR, Anayeli Attending Unavailable Tawny, Tu Referring Unavailable Georges TRUCKING SUPERVISOR, Rhiannon Attending Unavailable Tawny, Tu Primary Care Unavailable Tawny, Tu Referring Unavailable Tawny, Tu Primary Care Unavailable Audelia TRUCKING SUPERVISOR, Anayeli Attending Unavailable Tawny, Tu Referring Unavailable Georges TRUCKING SUPERVISOR, Rhiannon Attending Unavailable Tawny, Tu Primary Care Unavailable Tawny, Tu Primary Care Unavailable Jose Perdomo Attending Unavailable Georges TRUCKING SUPERVISOR, Rhiannon Referring Unavailable MAST, JOSELIN Primary Care Unavailable Porter Preston Attending Unavailable Tawny, Tu Primary Care Unavailable Omar Hicks Consulting Unavailable Omar Hicks Referring Unavailable Omar Hicks Attending Unavailable Ami Magdaleno Attending Unavailable Delia Mcqueen Referring Unavailable Carli Cristin Attending Unavailable Tawny, Tu Primary Care Unavailable Tawny, Tu Referring Unavailable Alis Chance Attending Unavailable Wilfrido Karimi Attending Unavailable Tawny, Tu Referring Unavailable Tawny, Tu Primary Care Unavailable Tawny, Tu Primary Care Unavailable Tawny, Tu Referring Unavailable Audelia TRUCKING SUPERVISOR, Anayeli Attending Unavailable Robson MYERS, Dr. Snell Referring Provider MAST DETECTIVE NARCOTICS AND VICE-BILLBOARD POSTER HELPER, JOSELIN Primary Care Physician TAWNY DO, TU Primary Care Unavailable MAST DETECTIVE NARCOTICS AND VICE-BILLBOARD POSTER HELPER, JOSELIN Attending Unavailabl e MAST DETECTIVE NARCOTICS AND VICE-BILLBOARD POSTER HELPER, JOSELIN Primary Care Unavailabl e MAST DETECTIVE NARCOTICS AND VICE-BILLBOARD POSTER HELPER, JOSELIN Attending Unavailabl e TAWNY DO, TU Primary Care Unavailable MAST DETECTIVE NARCOTICS AND VICE-BILLBOARD POSTER HELPER, JOSELIN Attending Unavailabl e TAWNY DO, TU Primary Care Unavailable MAST DETECTIVE NARCOTICS AND VICE-BILLBOARD POSTER HELPER, JOSELIN Attending Unavailabl e TAWNY DO, TU Primary Care Unavailable MAST DETECTIVE NARCOTICS AND VICE-BILLBOARD POSTER HELPER, JOSELIN Attending Unavailabl e Allergies Allergy Classification Reported Allergen(s) Allergy Type Date of Onset Reaction(s) Facility Alendronate (1 source) Alendronate; Translations: [alendronate] Drug Allergy Swelling / lump finding (finding), Muscle pain (finding) [facility] Cephalosporins (antibiotic) (1 source) Cefaclor; Translations: [cefaclor] Drug Allergy [facility] Macrolides (antibiotic) (1 source) Erythromycin; Translations: [erythromycin] Drug Allergy Stomach pain [facility] Opioid Agonists (2 sources) Morphine; Translations: [morphine] Drug Allergy Vomiting, Itching [facility] Penicillins (antibiotic) (1 source) Penicillin; Translations: [penicillin] Drug Allergy [facility] (20 sources) Alendronate; Translations: [alendronate] Drug Allergy 023 Swelling / lump finding (finding), Muscle pain (finding) [facility] Work Phone: (20 sources) Cefaclor; Translations: [cefaclor] Drug Allergy [address] [facility] Work Phone: (20 sources) Erythromycin; Translations: [erythromycin] Drug Allergy 007 GI Upset, Nausea And Vomiting [facility] Work Phone: (20 sources) Morphine; Translations: [morphine] Drug Allergy [address] [facility] Work Phone: (18 sources) Penicillin; Translations: [penicillin] Drug Allergy [facility] Work Phone: (20 sources) traMADol; Translations: [tramadol] Drug Allergy 007 Hives, Itching, Nausea And Vomiting [facility] Work Phone: (8 sources) Aspirin / oxyCODONE Hydrochloride / oxyCODONE terephthalate; Translations: [OXYCODONE [id number]] Drug Allergy 013 Vomiting [facility] Work Phone: (20 sources) hydroCHLOROthiazide / Triamterene; Translations: [TRIAMTERENE-HYDROCHLO ROTHIAZID] Drug Allergy 007 Rash [facility] Work Phone: (8 sources) Penicillins; Translations: [PENICILLINS] Propensity to adverse reactions 007 [facility] Work Phone: (20 sources) traMADol; Translations: [TRAMADOL HCL] Drug Allergy 007 Vomiting [facility] Work Phone: (20 sources) famciclovir; Translations: [FAMCICLOVIR] Drug Allergy 019 [facility] (20 sources) gabapentin; Translations: [GABAPENTIN] Drug Allergy 019 Unknown [facility] (20 sources) Penicillins Drug Intolerance 007 [facility] (20 sources) Erythromycin Base; Translations: [erythromycin base] Drug Allergy 017 Nausea Only [facility] (20 sources) Alendronate Drug Allergy 023 Myalgia, Other: See Comments [facility] (18 sources) Penicillins Allergy to substance [facility] (4 sources) famciclovir Drug Allergy 019 Unknown [facility] (4 sources) predniSONE; Translations: [PREDNISONE] Drug Allergy 024 Other: See Comments, Dizziness (finding) [facility] (16 sources) ezetimibe; Translations: [ezetimibe] Drug Allergy 025 Cough (finding), Muscle pain (finding), Blister - unit of product usage (qualifier value) Torito Aiken [facility] [place] Comment on above: cough, myalgia, blis ters (16 sources) Opioids - Morphine Analogues Allergy to substance [facility] (8 sources) calcipotriene Drug Allergy Rash [facility] (8 sources) hydroCHLOROthiazide Drug Allergy reaction [facility] Comment on above: Was told it can caus e cancer family had bad experience (1 source) Alendronate Drug Allergy [facility] (1 source) calcipotriene Drug Allergy [facility] (1 source) Cefaclor Drug Allergy [facility] (1 source) ezetimibe Drug Allergy [facility] (1 source) hydroCHLOROthiazide Drug Allergy [facility] (1 source) Penicillins Drug allergy (disorder) [facility] (1 source) traMADol Drug Allergy [facility] (1 source) Opioids - Morphine Analogues Drug allergy (disorder) [facility] Medications Current Medications Medication Drug [...] by mouth. 10/05/2024 Discontinued (Entered in error) acetaminophen 325 mg / oxyCODONE hydrochloride 5 mg oral tablet (20 sources) Opioid Agonist Start: 02-20-2025 Oxycodone-Acet aminophen 5-325 mg tablet Active 1 {tbl} PO .qid February 20, 2025 8:38am Malignant neoplasm of lung Malignant neoplasm of unspecified part of unspecified bronchus or lung pain Start: 02-14-2025 End: 02-20-2025 Oxycodone-Acetaminophen 5-32 5 mg tablet Discontinued 1 {tbl} PO EVERY 6 HOURS as needed for pain 8 2 0 February 14, 2025 February 20, 2025 8:38am Malignant neoplasm of lung Malignant neoplasm of unspecified part of unspecified bronchus or lung Start: 02-14-2025 Start: 10-06-2024 End: 10-11-2024 take 1 tablet by mouth every six hours as needed for pain oxyCODONE-acetaminophen (Percocet) 7.5-3 25 MG tablet Indications: Lung mass Take 1 [...] February 09, 2016 4:01pm Start: 02-09-2016 End: 11-22-2024 Start: 02-09-2016 End: 02-09-2016 take 1 tablet by mouth every four hours as needed Oxycodone-Acetaminophen Discontinued 1 - 2 TABLET PO EVERY 4 HOURS NEEDED February 09, 2016 12:00am February 09, 2016 4:01pm Start: 10-30-2008 oxycodone hcl/ acetaminophen(PERCOCET 10 MG-325 MG TAB) Take one tablet as needed. 0 10/30/2008 Active oxyCODONE-acetam inophen (PERCOCET) 5-325 mg tablet Take by mouth every 8 hours as needed for pain. Active Comment on above: Take one tablet as n eeded. albuterol 0.83 mg/ml inhalation solution (20 sources) beta2-Adrenergic Agonist Start: take 1 dose by inhalation every six hours as needed albuterol 2.5 mg/3 mL (0.083%) inhalation solution Dose : 2.5 mg = 3 mL, Inhalation, q6hr, PRN as needed for wheezing, # 30 EA, 2 Refill(s), Pharmacy: [facility], SOB (shortness of breath) COPD without exacerbation, 160, cm, 09/26/24 9:15:00 EDT, Height, kg, 09/26/24 9:15:00 EDT, Dosing Weight Start Date: 11/08/24 Status: Ordered Medication Dispense Status: Completed Quantity: 30.0 Unit: EA Total Allowed Fills: 3 Fills Dispensed: 0 Indications: Shortness of breath; Chronic obstructive pulmonary [...] or wheezing September 22, 2024 1:00am Start: 09-22-2024 Start: 06-19-2024 End: 2024 take 2 puff(s) by inhalation four times daily as needed for wheezing Ventolin HFA MDI (90 mcg/inh) inhalation aerosol 2 puff(s), Inhalation, QID, PRN as needed for wheezing, # 1 EA, 5 Refill(s), Pharmacy: [facility] #[id number], Cough Acute URI, 160, cm, 06/19/24 13:52:00 EST, Height, kg, 06/19/24 13:52:00 EST, Dosing Weight Start Date: 06/19/24 Stop Date: 12/16/24 Status: Ordered Medication Dispense Status: Completed Quantity: 1.0 Unit: EA Total Allowed Fills: 6 Fills Dispensed: 0 Indications: Cough; Acute upper respiratory infection, unspecified; Start: 06-19-2024 End: 2024 take 2 puff(s) by inhalation four times daily as needed for wheezing Ventolin HFA MDI (90 mcg/inh) inhalation aerosol 2 puff(s), Inhalation, QID, PRN as needed for wheezing, # 1 EA, 5 Refill(s), Pharmacy: [facility] #[id number], Cough Acute URI, 160, cm, 06/19/24 13:52:00 [...] 1 EA, 5 Refill(s), Pharmacy: [facility] #[id number], Cough Acute URI, 161, cm, 09/29/23 12:28:00 EDT, Height, kg, 09/29/23 12:28:00 EDT, Dosing Weight Start Date: 11/11/23 Stop Date: 05/09/24 Status: Ordered Start: 09-07-2023 End: 12-06-2023 take 2 puff(s) by inhalation four times daily as needed for wheezing Ventolin HFA MDI (90 mcg/inh) inhalation aerosol 2 puff(s), Inhalation, QID, PRN as needed for wheezing, # 1 EA, 2 Refill(s), Pharmacy: [facility] #[id number], Cough Acute URI, 161.5, cm, 07/06/23 10:58:00 EST, Height, kg, 07/06/23 10:58:00 EST, Dosing Weight Start Date: 09/07/23 Stop Date: 12/06/23 Status: Ordered Start: 01-06-2023 End: 07-05-2023 take 2 puff(s) by inhalation four times daily as needed for wheezing Ventolin HFA MDI (90 mcg/inh) inhalation aerosol 2 puff(s), Inhalation, QID, PRN as needed for wheezing, # 1 EA, 5 Refill(s), Pharmacy: [facility] #[id number], Moderate tobacco dependence Persistent cough, 159, cm, [...] 1 EA, 5 Refill(s), [facility]acy: [facility] #[id number], Moderate tobacco dependence, 159, cm, 07/03/22 14:04:00 [...] EA, 5 Refill(s), Pharmacy: [facility] , Moderate tobacco dependence, 162, cm, 07/01/21 14:16:00 EST, Height, kg, 07/01/21 14:16:00 EST, Dosing Weight Start Date: 07/01/21 Stop Date: 12/28/21 Status: Ordered Start: 08-24-2019 Albuterol Sulf ate 1 INHALER inhaler Active 1 - 2 NMA INHALATION EVERY 4 HOURS NEEDED as needed for Sob &/Or Wheezing August 24, 2019 1:00am Start: 08-24-2019 Start: 08-24-2019 take 1 puff(s) by in [...] Comment on above: Take 1 capsule by [facility] three times daily as needed for cough. Budesonide-Formotero l (20 sources) Corticosteroid, beta2-Adrenergic Agonist Start: 11-10-19 take 2 puff(s) by inhalation in the morning Budesonide-Formoter ol 80-4.5 mcg/actuation HFA aerosol inhaler Active 2 NMA INHALATION .x4 November 09, 2024 9:19am sob 2 puffs in morning, 2 puffs at night Start: 11-09-2024 Start: 11-09-2024 take 2 puff(s) by in halation in the morning Budesonide-Formoterol 80-4.5 mcg/actuation HFA aerosol inhaler Active 2 NMA INHALATION .x4 November 09, 2024 9:19am 2 puffs in morning, 2 puffs at night Start: 09-13-2024 End: 10-17-2024 take 2 puff(s) by inhalation twice daily budesonide-formoterol (Symbicort) 80-4.5 MCG/ACT inhaler Indications: Chronic obstructive pulmonary disease, unspecified COPD type (HCC) Inhale 2 puffs 2 times daily. 1 each 3 10/17/2024 Active Start: 09-13-2024 End: 11-09-2024 Start: 09-13-2024 End: 11-09-2024 take 2 puff(s) [...] m g oral tablet (20 sources) Start: 01-12-2025 busPIRone 10 m g oral tablet Dose : 10 mg = 1 tab(s), Oral, TID, PRN as needed for anxiety, # 270 tab(s), 3 Refill(s), Pharmacy: [facility], Anxiety, 159, cm, 01/12/25 11:06:00 EDT, Height, kg, 01/12/25 11:06:00 EDT, Dosing Weight Start Date: 01/12/25 Status: Ordered Medication Dispense Status: Completed Quantity: 270.0 Unit: tab(s) Total Allowed Fills: 4 Fills Dispensed: 0 Indications: Anxiety disorder, unspecified; Start: 08-24-2019 busPIRone (BUS PAR) 10 mg [...] d aily. clindamycin 300 mg oral capsule (20 sources) Lincosamide Antibacterial Start: 11-24-2024 End: 12-01-2024 [...] needed. docusate sodium 100 mg oral capsule (14 sources) Start: Docusate Sodium (Dulcolax Stool Softener (Dss)) 100 mg capsule Active 200 mg PO daily November 17, 2024 12:00am constipation Start: 07-03-2022 take 1 mg by mouth twice daily Dulcolax Stool Softener mg =, Oral, BID, 0 Refill(s) Start Date: 07/03/22 Status: Ordered 2.4 ml durvalumab 50 mg/ml injection (7 sources) Programmed Ligand-1 Mayuri Start: 02-11-2025 take 50 mg intravenously every other week Durvalumab 50 mg/mL solution Active IV Q14D February 11, 2025 12:00am Start: 01-12-2025 durvalumab mg/ kg =, Intravenous, q2wk, 0 Refill(s) Start Date: 01/12/25 Status: Ordered Medication Dispense Status: Completed Total Allowed Fills: 1 Fills Dispensed: 0 ezetimibe 10 mg oral tablet (1 source) Dietary Cholesterol Absorption Inhibitor Start: 02-02-2024 ezetimibe 10 mg oral tablet Dose : 10 mg = 1 tab(s), Oral, qDay, Discontinue simvastatin prescription please, # 90 tab(s), 1 Refill(s), [facility]acy: [facility] #[id number], Hyperlipidemia, 160, cm, 02/02/24 13:09:00 EDT, Height, kg, 02/02/24 13:09:00 EDT, Dosing Weight Start Date: 02/02/24 Status: Ordered famotidine 10 mg oral tablet (7 sources) Histamine-2 Receptor Antagonist Start: 01-12-2025 End: 04-12-2025 take 1 tablet by mouth twice daily Famotidine 10 mg tablet Active 10 mg PO TWICE A DAY February 11, 2025 12:00am gerd FLUoxetine 10 mg oral capsule (7 sources) Serotonin Reuptake Inhibitor take 1 capsule by mouth once daily FLUoxetine (PROZAC) 10 mg capsule Take 10 mg by mouth once daily. Active Comment on above: Take 10 mg by mouth once daily. fluticasone propionate 0.05 mg/actuat metered dose nasal spray (14 sources) Corticosteroid Start: 11-29-2018 take 2 spray(s) by mouth once daily [...] nostril once daily. Rinse mouth after use. furosemide 20 mg oral tablet (6 sources) Loop Diuretic Start: 02-11-2025 take 1 tablet by mouth once daily as needed Furosemide 20 mg tablet Active 20 mg PO DAILY as needed for swelling February 11, 2025 12:00am guaiFENesin (10 sources) Start: 07-03-2022 take 1 tablet by mouth twice daily Mucinex D 60 mg-600 mg oral tablet, extended release tab(s), Oral, BID, 0 Refill(s) Start Date: 07/03/22 Status: Ordered Start: 07-18-2018 take 2 tablets by [facility] twice daily guaiFENesin (MUCINEX) 600 mg 12 hr tablet Indications: Bronchitis Take 2 tablets by mouth twice daily. 60 tablet 07/18/2018 Active Comment on above: Take 2 tablets by [facility] twice daily. 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 Active Comment on above: Take 10 mg by mouth once daily. lovastatin 20 mg oral tablet (7 sources) HMG-CoA Reductase Inhibitor take 1 tablet by mouth once daily at bedtime lovastatin (MEVACOR) 20 mg tablet Take 20 mg by mouth daily at bedtime. Active Comment on above: Take 20 mg by mouth daily at bedtime. metoclopramide 10 mg oral tablet (4 sources) Dopamine-2 Receptor Antagonist Start: 02-21-20 take 1 tablet by mouth at bedtime Metoclopramide Hcl (Reglan) 10 mg tablet Active 10 mg PO before meals and at bedtime 120 1 February 20, 2025 12:00am Small cell carcinoma of lung Malignant neoplasm of left main bronchus Multiple Vitamin (multivitamin) capsule (20 sources) take 1 capsule by mouth once daily Multiple Vitamin (multivitamin) capsule Take 1 capsule by mouth daily. Suspended take 1 capsule by mouth once zee ly Multiple Vitamin (multivitamin) capsule Take 1 capsule by mouth daily. Active Multivitamin tablet (15 sources) Start: 09-18-2024 Multivitamin t ablet Active 1 {tbl} PO EVERY MORNING September 18, 2024 1:00am supplement Start: 09-18-2024 Multivitamin t ablet Active 1 {tbl} PO EVERY MORNING September 18, 2024 1:00am nabumetone 500 mg oral tablet (3 sources) Nonsteroidal Anti-inflammatory Drug Start: 07-03-2022 nabumetone 500 mg oral tablet Dose : 500 mg = 1 tab(s), Oral, BID, # 60 tab(s), 0 Refill(s) Start Date: 07/03/22 Status: Ordered Wyola-3 Fatty Acids (OMEGA 3 500 PO) (20 sources) Wyola-3 Fatty Ac ids (OMEGA 3 500 PO) Take by mouth daily. Suspended Wyola-3 Fatty Ac ids (OMEGA 3 500 PO) Take by mouth daily. Active Wyola-3 Fatty Ac ids (OMEGA 3 500 PO) Take by mouth. 0 Active ondansetron 8 mg disintegrating oral tablet (13 sources) Serotonin-3 Receptor Antagonist Start: 10-26-2024 take [...] 1 dose, Recovery (only), Initial antiemetic therapy. pantoprazole 40 mg delayed release oral tablet (20 sources) Proton Pump Inhibitor Start: 11-13-2024 pantoprazole 40 mg o ral enteric coated tablet Dose : 40 mg = 1 tab(s), Oral, qDay, # 90 tab(s), 1 Refill(s), Pharmacy: [facility], GERD (gastroesophageal reflux disease) Acid reflux, 160, cm, 09/26/24 9:15:00 EDT, Height, kg, 09/26/24 9:15:00 EDT, Dosing Weight Start Date: 11/15/24 Status: Ordered Medication Dispense Status: Completed Quantity: 90.0 Unit: tab(s) Total Allowed Fills: 2 Fills Dispensed: 0 Indications: Gastro-esophageal reflux disease without esophagitis; Gastro-esophageal reflux disease without esophagitis; Start: 10-30-2008 End: 10-05-2024 take 1 tablet by mouth once daily Pantoprazole 40 MG tablet Discontinued 40 mg PO DAILY February 09, 2016 12:00am October 05, 2024 2:15pm Comment on above: Take by mouth. potassium chloride 20 meq oral tablet (20 sources) Start: 02-23-2025 potassium chloride 20 mEq oral tablet, extended release Dose : 20 mEq = 1 tab(s), Oral, qDay, Take with food, # 30 tab(s), 0 Refill(s) Start Date: 02/23/25 Status: Ordered Medication Dispense Status: Completed Quantity: 30.0 Unit: tab(s) Total Allowed Fills: 1 Fills Dispensed: 0 Start: 02-11-2025 End: 02-20-2025 take 1 tablet by mouth once daily Potassium Chloride 20 mEq tablet,ER particles/crystals Active 20 meq PO DAILY 30 February 20, 2025 9:45am Hypokalemia Hypokalemia Start: 11-09-2024 End: 11-15-2024 take 1 tablet by mouth once daily Potassium Chloride 20 mEq tablet,ER particles/crystals Discontinued 20 meq PO DAILY 3 November 09, 2024 12:00am November 15, 2024 2:40pm Hypokalemia Hypokalemia prochlorperazine 10 mg oral tablet (16 sources) Phenothiazine Start: 10-26-2024 End: 02-20-2025 prochlorperazine 10 mg oral tablet 0 Refill(s) Start Date: 01/12/25 Status: Ordered Medication Dispense Status: Completed Total Allowed Fills: 1 Fills Dispensed: 0 spironolactone 25 mg oral tablet (1 source) Aldosterone Antagonist Start: 03-09-2025 spironolactone 25 mg oral tablet Dose : 25 mg = 1 tab(s), Oral, qDay, PRN Swelling, Take with food, # 30 tab(s), 2 Refill(s), Pharmacy: [facility], 160, cm, 03/09/25 14:55:00 EDT, Height, kg, 03/09/25 14:55:00 EDT, Dosing Weight Start Date: 03/09/25 Status: Ordered Medication Dispense Status: Completed Quantity: 30.0 Unit: tab(s) Total Allowed Fills: 3 Fills Dispensed: 0 Symbicort 80 mcg-4.5 mcg/inh Inhaler (2 sources) Start: 09-13-2024 take 1 dose by inhalation twice daily Symbicort 80 mcg-4.5 mcg/inh Inhaler Dose = 2 puff(s), Inhalation, BID, # 6.9 gram(s), 0 Refill(s), Pharmacy: [facility] #[id number], 159, cm, 09/13/24 8:34:00 EST, Height, kg, 09/13/24 8:34:00 EST, Dosing Weight Start Date: 09/13/24 Status: Ordered Medication Dispense Status: Completed Quantity: 6.9 Unit: g Total Allowed Fills: 1 Fills Dispensed: 0 Start: 09-13-2024 take 1 dose by inhal ation twice daily Symbicort 80 mcg-4.5 mcg/inh Inhaler Dose = 2 puff(s), Inhalation, BID, # 6.9 gram(s), 0 Refill(s), Pharmacy: [facility] #[id number], 159, cm, 09/13/24 8:34:00 EST, Height, kg, 09/13/24 8:34:00 EST, Dosing Weight Start Date: 09/13/24 Status: Ordered Quantity: 6.9 Unit: g Repeat number: 1 torsemide 20 mg oral tablet (7 sources) Loop Diuretic Start: 10-06-2012 take 1 tablet by mouth once daily torsemide (DEMADEX) 20 mg tablet Take 1 tablet by mouth once daily. 0 10/06/2012 Active Comment on above: Take 1 tablet by gregg once daily. traZODone hydrochloride 100 mg oral tablet (20 sources) Serotonin Reuptake Inhibitor Start: 11-17-2024 take 2 tablets by mouth at bedtime [...] Ricarda 10/05/24 at 2230 Start: 09-13-2024 End: 01-07-2026 traZODone 100 mg oral tablet Dose : 150 mg = 1.5 tab(s), Oral, qHS, Dose adjusted, # 135 tab(s), 3 Refill(s), Pharmacy: [facility], Insomnia, 159, cm, 01/12/25 11:06:00 EDT, Height, kg, 01/12/25 11:06:00 EDT, Dosing Weight Start Date: 01/12/25 Stop Date: 01/07/26 Status: Ordered Medication Dispense Status: Completed Quantity: 135.0 Unit: tab(s) Total Allowed Fills: 4 Fills Dispensed: 0 Indications: Insomnia, unspecified; Start: 09-13-2024 Trazodone 100 mg tablet Active 150 mg PO AT BEDTIME September 13, 2024 1:00am Start: 01-06-2023 End: 03-27-2024 take 1 tablet by mouth once daily traZODone (Desyrel) 100 MG tablet Take 100 mg by mouth Nightly. 01/06/2023 Active Start: 07-03-2022 traZODone 100 mg oral tablet Dose : 100 mg = 1 tab(s), Oral, qHS, # 90 tab(s), 1 Refill(s), Pharmacy: [facility] #[id number], Insomnia, 159, cm, 07/03/22 14:04:00 EST, Height, kg, 07/03/22 14:04:00 EST, Dosing Weight Start Date: 07/03/22 Status: Ordered Start: 07-01-2021 traZODone 100 mg oral tablet Dose : 100 mg = 1 tab(s), Oral, qHS, Please cancel previous prescription sent in for this medication. Increased dose., # 90 tab(s), 0 Refill(s), Pharmacy: [id number], Insomnia, 162, cm, 07/01/21 14:16:00 EST, [...] 24, 2019 1:00am September 18, 2024 2:13pm Start: 08-24-2019 End: 09-18-2024 Comment on above: Trazodone Active 50 MG AT BEDTIME August 24, 2019 9:19am turmeric extract 500 mg oral capsule (7 sources) Start: 09-29-2023 turmeric 500 mg oral capsule Dose : 500 mg = 1 cap(s), Oral, BID, 0 Refill(s) Start Date: 09/29/23 Status: Ordered vitamin a 05170 unt oral capsule (3 sources) Vitamin A Start: 09-06-2019 vitamin A 25,000 units oral capsule Dose : 25,000 unit(s) = 1 cap(s), Oral, Daily, 0 Refill(s) Start Date: 09/06/19 Status: Ordered vitamin b12 0.05 mg oral tablet (7 sources) Vitamin B12 Start: 02-11-2025 take 1 tablet by mouth once daily Cyanocobalamin (Vitamin B-12) 50 mcg tablet Active 50 ug PO DAILY February 11, 2025 12:00am Start: 05-01-2022 Vitamin B12 0 Refill(s) Start Date: 05/01/22 Status: Ordered Vitamin B12 50 mcg oral tabl et (9 sources) Start: 09-29-2023 Vitamin B12 50 mcg oral tablet Dose : 50 mcg = 1 tab(s), Oral, qDay, # 30 tab(s), 0 Refill(s) Start Date: 09/29/23 Status: Ordered Medication Dispense Status: Completed Quantity: 30.0 Unit: tab(s) Total Allowed Fills: 1 Fills Dispensed: 0 Start: 09-29-2023 Vitamin B12 50 mcg oral [...] Ordered zinc citrate 50 mg oral capsule (2 sources) Start: 07-27-2024 zinc citrate 5 0 mg oral capsule 0 Refill(s) Start Date: 07/27/24 Status: Ordered Medication Dispense Status: Completed Total Allowed Fills: 1 Fills Dispensed: 0 Zinc Citrate, Zinc Oxide 50 mg tablet (15 sources) Start: 02-11-2025 take 1 tablet by mouth once daily Zinc Citrate, Zinc Oxide 50 mg tablet Active 50 mg PO DAILY February 11, 2025 12:00am supplement Start: 02-11-2025 take 1 tablet by gregg once daily Zinc Citrate, Zinc Oxide 50 mg tablet Active 50 mg PO DAILY February 11, 2025 12:00am Start: 11-13-2024 End: 11-15-2024 take 1 mg by mouth once daily Zinc Citrate, Zinc Oxide 50 mg tablet Discontinued mg PO DAILY November 13, 2024 12:00am November 15, 2024 2:41pm (8 sources) Start: 02-11-2025 Start: 11-17-2024 End: 02-11-2025 Start: 11-13-2024 End: 11-15-2024 Start: 11-13-2024 End: 11-15-2024 Start: 09-18-2024 Start: 09-18-2024 End: 10-05-2024 Start: 09-18-2024 End: 10-05-2024 Start: 09-18-2024 End: 10-27-2024 Completed/Discontinued Medications Medication Drug Class(es) Dates Sig (Normalized) Sig (Original) acetaminophen 325 mg / HYDROcodone bitartrate 5 mg oral tablet (18 sources) Opioid Agonist Start: 08-24-2019 End: 08-27-2019 Hydrocodone-Acetami nophen 1 TABLET tablet Discontinued 1 {tbl} PO EVERY 6 HOURS NEEDED as needed for Pain 10 3 0 August 24, 2019 August 26, 2019 1:00am August 27, 2019 1:09am Flank pain Unspecified abdominal pain Start: 08-24-2019 End: 08-27-2019 Start: 08-24-2019 End: 08-27-2019 take 1 tablet by mouth every six hours as needed Hydrocodone-Acetaminophen Discontinued 1 TABLET PO EVERY 6 HOURS NEEDED 10 3 August 24, 2019 August 27, 2019 1:09am albuterol 0.833 mg/ml / ipratropium bromide 0.167 [...] every 6 hours. Active barium sulfate (Varibar [place], Varibar Honey) 40 % suspension 10 mL [...] on Wed10/06/24 at 0857, For 1 dose bisacodyl 5 mg delayed release oral tablet (10 sources) Stimulant Laxative Start: 12-13-2024 End: 02-11-2025 take 1 tablet by mouth once daily Bisacodyl 5 mg tablet Discontinued 5 mg PO DAILY December 13, 2024 12:00am February 11, 2025 5:25pm cetirizine hydrochloride 10 mg oral tablet (20 [...] 1546, For 1 dose, Recovery (only) doxycycline hyclate 100 mg oral capsule (20 sources) Tetracycline-clas s Drug Start: 01-28-2025 End: 02-11-2025 take 1 capsule by mouth twice daily Doxycycline Hyclate 100 mg capsule Discontinued 100 mg PO TWICE A DAY 14 7 January 28, 2025 12:00am February 11, 2025 5:25pm Start: 06-20-2024 End: 09-18-2024 take 1 capsule by mouth twice daily Doxycycline Monohydrate 100 mg capsule Discontinued 100 mg PO TWICE A DAY June 20, 2024 1:00am September 18, 2024 [...] for 7 days. 14 tablet 01/12/2021 01/19/2021 Dulcolax Bowel Cleansing (1 source) Start: 03-09-2025 End: 03-10-2025 Dulcolax Bowel Cleansing Dose = 1 EA, Miscellaneous, qDay, # 1 kit(s), 0 Refill(s) Start Date: 03/09/25 Stop Date: 03/10/25 Status: Ordered Medication Dispense Status: Completed Quantity: 1.0 Unit: kit(s) Total Allowed Fills: 1 Fills Dispensed: 0 0.4 ml enoxaparin sodium 100 mg/ml prefilled syringe (2 sources) Low Molecular Weight Heparin Start: 10-06-2024 End: 10-06-2024 F18 FDG radio-isotope injection 11.5 millicurie (2 sources) Start: 10-20-2024 End: 10-20-2024 11.5 millicurie, IntraVENous, Once, On Wed10/20/24 at 1400, For 1 dose ferrous sulfate 325 mg delayed release oral tablet (20 sources) Start: 11-13-2024 End: 11-17-2024 take 1 tablet by mouth twice daily Ferrous Sulfate 325 mg (65 mg iron) tablet,delayed release (DR/EC) Discontinued 325 mg PO TWICE A DAY November 13, 2024 12:00am November 17, 2024 11:37am Start: 11-13-2024 End: 02-20-2025 take 1 tablet by mouth once daily Ferrous Sulfate 325 mg (65 mg iron) tablet,delayed release (DR/EC) Discontinued 325 mg PO daily November 17, 2024 11:37am February 20, 2025 9:48am supplement Start: 07-27-2024 IRON (ferrous sulfate 325 mg) 65 mg oral tablet Dose : 325 mg = 1 tab(s), Oral, BIDM, Take with food., # 60 tab(s), 3 Refill(s) Start Date: 07/27/24 Status: Ordered Quantity: 60.0 Unit: tab(s) Repeat number: 1 FERROUS SULFATE (FE-TABS ORAL) Take by mouth. Active FERROUS SULFATE (FE-TABS ORAL) Take by mouth. 0 Active Comment on above: Take by mouth. 30 actuat fluticasone furoate 0.1 mg/actuat / umeclidinium 0.0625 mg/actuat / vilanterol 0.025 mg/actuat dry powder inhaler (6 sources) Anticholinergic, Corticosteroid, beta2-Adrenergic Agonist Start: End: Fluticasone-Umeclidin -Vilant (Trelegy Ellipta) 100-62.5-25 MCG/ACT aerosol powder Indications: Pulmonary emphysema, unspecified emphysema type (HCC) Inhale 1 Inhalation daily. 60 each 5 10/03/2024 10/05/2024 Discontinued 60 actuat formoterol fumarate 0.005 mg/actuat / mometasone furoate 0.2 mg/actuat metered dose inhaler (2 sources) Corticosteroid, beta2-Adrenergic Agonist Start: End: take 2 puff(s) by mouth twice daily 2 puff, Inhalation, 2 times daily, First dose on Wed10/05/24 at 2230, Rinse mouth with water after use to reduce aftertaste and incidence of candidiasis. Do not swallow. gabapentin 300 mg oral capsule (20 sources) Anti-epileptic Agent Start: End: take 1 capsule by mouth three times [...] 2024 10:03am January 23, 2025 10:13am Start: 11-03-2024 End: 01-23-2025 Start: 09-29-2021 End: 10-31-2024 take 1 tablet [...] 50 Plus Probiotic) 4 billion cell capsule (15 sources) Start: 09-18-2024 End: 10-05-2024 take 4 [...] for 7 days. 7 tablet 10/17/2024 10/24/2024 loratadine 10 mg oral tablet (20 sources) Start: 08-24-2019 End: 08-03-2024 Claritin 10 mg oral tablet Dose : 10 mg = 1 tab(s), Oral, qDay, # 7 tab(s), 0 Refill(s) Start Date: 07/27/24 Stop Date: 08/03/24 Status: Ordered Medication Dispense Status: Completed Quantity: 7.0 Unit: tab(s) Total Allowed Fills: 1 Fills Dispensed: 0 loratadine (Clar itin) 5 MG chewable tablet Chew 5 mg daily. Active 1 ml LORazepam 2 mg/ml injection (2 sources) Benzodiazepine Start: 10-09-2024 End: 10-09-2024 0.5 mg, IntraVENous, Once PRN, for anxiety or muscle spasm., Starting on 10/09/24 at 1546, For 1 dose, Recovery (only), For IV doses dilute dose with 1ml NS. mecobalamin 1 mg chewable tablet (11 sources) Start: 11-13-2024 End: 02-11-2025 take 1 tablet by mouth once daily Mecobalamin (Vitamin B12) 1,000 mcg tablet,chewable Discontinued 1000 ug PO daily November 13, 2024 12:00am February 11, 2025 5:25pm melatonin 2.5 mg chewable tablet (20 sources) Start: 10-05-2024 End: 10-06-2024 take 10 mg by mouth once daily 10 mg, Oral, Nightly, First dose on Ricarda 10/05/24 at 2230 Start: 10-05-2024 End: 02-11-2025 take 1 tablet by mouth at bedtime as needed for sleep Melatonin 2.5 mg tablet,chewable Discontinued 2.5 mg PO AT BEDTIME as needed for sleep November 09, 2024 9:22am February 11, 2025 5:25pm meloxicam 15 mg oral tablet (20 sources) [...] For oversedation/difficult to rouse, pinpoint pupils, RR Wyola-3 Fatty Acids 1,000 mg capsule (20 sources) Start: 11-13-2024 End: 11-15-2024 take 1 capsule by mouth once daily Wyola-3 Fatty Acids 1,000 mg capsule Discontinued 1000 mg PO daily November 13, 2024 12:00am November 15, 2024 2:40pm Start: 09-18-2024 End: 10-27-2024 take 1 capsule by mouth once daily Wyola-3 Fatty Acids 1,000 mg capsule Discontinued 1000 mg PO daily September 18, 2024 1:00am October 27, 2024 12:48pm Start: 09-18-2024 take 1 capsule by mo [facility] once daily Wyola-3 Fatty Acids 1,000 mg capsule Active 1000 mg PO daily September 18, 2024 1:00am ondansetron ODT (Zofran-ODT) disintegrating tablet 4 mg (2 sources) Start: 10-05-2024 End: 10-06-2024 take 1 tablet by mouth every eight hours as needed for nausea and vomiting ondansetron ODT (Zofran-ODT) disintegrating tablet 4 mg osteo matrix (10 sources) Start: 11-17-2024 End: 02-11-2025 osteo matrix Discontinued PO DAILY November 17, 2024 12:00am February 11, 2025 5:25pm Start: 11-17-2024 osteo matrix A ctive PO DAILY November 17, 2024 12:00am oxyCODONE hydrochloride 10 mg oral tablet (20 sources) Opioid Agonist Start: 11-22-2024 End: 02-14-2025 oxyCODONE 10 mg oral tablet ( IMMEDIATE release ) Dose : 10 mg = 1 tab(s), Oral, q6h, 0 Refill(s), 68.4 Start Date: 01/12/25 Status: Ordered Medication Dispense Status: Completed Total Allowed Fills: 1 Fills Dispensed: 0 Start: 11-22-2024 take 2 tablets by mo ut twice daily as needed for pain Oxycodone [...] tablet by gregg th every 12 hours. polyethylene glycol 3350 [id number] mg powder for oral solution (2 sources) Osmotic Laxative Start: 10-06-19 End: 10-07-19 take 17 g by mouth every twenty-four hours as needed for constipation predniSONE 20 mg oral tablet (20 sources) Start: 06-20-20 End: 09-13-19 take 1 tablet by mouth twice daily Prednisone 20 mg tablet Discontinued 20 mg PO TWICE A DAY 10 0 June 20, 2024 1:00am September 13, 2024 8:37pm Start: 06-20-2024 End: 09-18-2024 take 2 tablets by mouth once daily Prednisone 20 mg tablet Discontinued 40 mg PO DAILY 14 7 0 September 14, 2024 1:00am September 18, 2024 2:13pm Start: 02-11-2024 End: 02-19-2024 predniSONE 50 mg [...] 01/16/2021 Sennosides (Senna Laxative) 8.6 mg tablet (15 sources) Start: 09-18-2024 End: 10-05-2024 take 1 [...] interruptions/ long duration, Starting on Wed10/05/24 at 2010, For piggyback infusion, administer at same rate [...] mL, IntraVENous, PRN, line care, Starting on [facility] 10/05/24 at 2009, After every IV line use valACYclovir 500 mg oral tablet (20 sources) Herpesvirus Nucleoside Analog DNA Polymerase Inhibitor, Herpes Simplex Virus Nucleoside Analog DNA Polymerase Inhibitor, Herpes Zoster Virus Nucleoside Analog DNA Polymerase Inhibitor Start: 11-17-2024 End: 02-04-2025 valACYclovir 500 mg oral tablet Dose : 500 mg = 1 tab(s), Oral, BID, take 1 tablet by mouth twice a day for 3 days for OUTBREAKS DRINK PLENTY OF FLUIDS, # 6 tab(s), 0 Refill(s), Pharmacy: [facility], 159, cm, 01/31/25 14:28:00 EDT, Height, 68, kg, 01/31/25 14:28:00 EDT, Dosing Weight Start Date: 02/01/25 Stop Date: 02/04/25 Status: Ordered Medication Dispense Status: Completed Quantity: 6.0 Unit: tab(s) Total Allowed Fills: 1 Fills Dispensed: 0 Start: 11-13-2024 End: 11-15-2024 take 1 tablet by mouth twice daily as needed Valacyclovir 500 mg tablet Discontinued 500 mg PO TWICE A DAY as needed for for outbreaks November 13, 2024 12:00am November 15, 2024 2:41pm Start: 11-13-2024 End: 11-15-2024 Start: 10-05-2024 End: 11-03-2024 take 1 tablet by mouth twice daily Valacyclovir 500 mg tablet Discontinued 500 mg PO TWICE A DAY October 05, 2024 12:00am November 03, 2024 1:51pm Start: 10-05-2024 End: 11-03-2024 Start: 09-20-2024 End: 09-26-2024 valACYclovir 500 mg oral tab let Dose : 500 mg = 1 tab(s), Oral, BID, take 1 tablet by mouth twice a day for 3 days for OUTBREAKS DRINK PLENTY OF FLUIDS, # 6 tab(s), 1 Refill(s), Pharmacy: [facility] #[id number], 160, cm, 09/14/24 11:43:00 EST, Height, 77.9, kg, 09/14/24 11:43:00 EST, Dosing Weight Start Date: 09/20/24 Stop Date: 09/26/24 Status: Ordered Quantity: 6.0 Unit: tab(s) Repeat number: 2 Start: 02-09-2016 End: 09-18-2024 take 1 tablet by mouth twice daily Valacyclovir (Valtrex) 500 MG tablet Discontinued 500 mg PO TWICE A DAY February 09, 2016 12:00am September 18, 2024 2:13pm Start: 02-09-2016 End: 09-18-2024 Comment on above: Take 500 mg by mouth once daily. vitamin e 180 mg oral capsule (20 sources) Start: 11-13-2024 End: 11-15-2024 Vitamin E Mixed 400 unit capsule Discontinued U PO DAILY November 13, 2024 12:00am November 15, 2024 2:41pm Start: 10-05-2024 End: 10-31-2024 take 1 capsule by mouth once daily Vitamin E 268 mg (400 unit) capsule Discontinued 268 mg PO DAILY October 05, 2024 12:00am October 31, 2024 8:16am Start: 10-05-2024 End: 10-31-2024 Problems Active Problems Problem Classification Problem Date Documented Da te Episodic/Chronic Abdominal hernia (20 sources) Hiatal hernia; Translations: [Diaphragmatic hernia without obstruction or gangrene] 09-06-2019 Episodic Abdominal pain (20 sources) Abdominal pain; Translations: [Unspecified abdominal pain] Onset: 03-01-2025 01-28-2025 Episodic Acquired foot deformities (19 sources) Bunion 03-09-2017 Episodic Comment on above: Left Acute bronchitis (18 sources) Acute bronchitis 11-24-2019 Episodic Administrative/social admission (20 sources) Patient encounter status; Translations: [Counseling, unspecified] Onset: 10-27-2024 10-27-2024 Episodic Anxiety disorders (20 sources) Anxiety; [...] 10-17-2024 Chronic Cancer; other and unspecified primary (7 sources) H/O: malignant neoplasm; Translations: [Personal history of malignant neoplasm of other organs and systems] 01-28-2025 Episodic Cardiac dysrhythmias (1 source) Unspecified atrial fibrillation; Translations: [Unspecified atrial fibrillation] Onset: 10-05-2024 Chronic Chronic kidney disease (20 sources) Chronic kidney disease stage 3A ; [...] Complications of surgical procedures or medical care (20 sources) Delayed healing of surgical wound; Translations: [Other complications of procedures, not elsewhere classified, initial encounter] Onset: 03-01-2025 12-12-2024 Episodic Conditions associated with dizziness or vertigo (12 sources) Lightheadedness; Translations: [Dizziness and giddiness] 10-21-2024 Episodic Deficiency and other anemia (11 sources) Anemia; Translations: [Anemia, unspecified] 10-31-2024 Episodic Disorders of lipid metabolism (20 sources) Hyperlipidemia; Translations: [Hyperlipidemia, unspecified] Onset: 02-20-2025 02-18-2022 Chronic E Codes: Natural/environment (20 sources) Cat bite - wound; Translations: [Bitten by cat, initial encounter] Onset: 01-28-2024 Episodic Esophageal disorders (20 sources) Acid reflux; Translations: [Gastroesophageal reflux disease] 03-09-2017 Chronic Essential hypertension (20 sources) Hypertensive disorder; Translations: [Essential (primary) hypertension] Onset: 09-29-2023 03-09-2017 Chronic Comment on above: CONTROLLED ON MED Fever of unknown origin (12 sources) Fever 07-06-2023 Episodic Fluid and electrolyte disorders (20 sources) Hypokalemia; Translations: [Hypokalemia] Onset: 02-20-2025 11-09-2024 Episodic Fracture of upper limb (2 sources) Closed fracture of distal phalanx of left thumb; Translations: [Displaced fracture of distal phalanx of left thumb, initial encounter for closed fracture] Onset: 11-24-2024 Episodic Headache; including migraine (20 sources) Migraine; Translations: [Migraine, unspecified, not intractable, without status migrainosus] 03-09-2017 Chronic Intestinal obstruction without hernia (15 sources) Partial obstruction of small bowel; Translations: [Partial intestinal obstruction, unspecified as to cause] Onset: 03-01-2025 02-11-2025 Episodic Lymphadenitis (20 sources) Lymphadenopathy; Translations: [Enlarged lymph nodes, unspecified] Onset: 10-05-2024 10-03-2024 Episodic Maintenance chemotherapy; radiotherapy (20 sources) Patient encounter status; Translations: [Encounter for antineoplastic chemotherapy] 10-31-2024 Chronic Malignant neoplasm without specification of site (5 sources) Malignant neoplastic disease; Translations: [Malignant (primary) neoplasm, unspecified] Onset: 10-24-2024 10-24-2024 Chronic Mood disorders (20 sources) Depressive disorder; Translations: [Depression] 03-09-2017 Chronic Nausea and vomiting (17 sources) Nausea; Translations: [Nausea] Onset: 10-27-2024 10-21-2024 Episodic Nonspecific chest pain (8 sources) Chest pain; Translations: [Chest pain, unspecified] Onset: 02-01-2025 01-28-2025 Episodic Nutritional deficiencies (12 sources) Vitamin D deficiency 07-06-2023 Chronic Open wounds of extremities (2 sources) Laceration of left thumb; Translations: [Laceration without foreign body of left thumb without damage to nail, initial encounter] Onset: 11-24-2024 Episodic Osteoarthritis (19 sources) Osteoarthritis 03-09-2017 Chronic Osteoporosis (20 sources) Osteoporosis; Translations: [Age-related osteoporosis without current pathological fracture] 03-09-2017 Chronic Other and ill-defined heart disease (20 sources) [...] Episodic Other bone disease and musculoskeletal deformities (15 sources) Osteopenia 12-30-2022 Episodic Other circulatory disease (12 sources) Low blood pressure; Translations: [Hypotension, unspecified] 10-21-2024 Episodic Other connective tissue disease (19 sources) Muscle pain; Translations: [Myalgia and myositis, unspecified] 11-18-2006 Episodic Other connective tissue disease (1 source) Pain in limb; Translations: [Pain in unspecified limb] Onset: 02-20-2024 Episodic Other connective tissue disease (7 sources) Pain in lower limb 02-20-2024 Episodic Other gastrointestinal disorders (5 sources) Dysphagia 09-13-2024 Episodic Other gastrointestinal disorders (20 sources) Constipation; Translations: [Constipation, unspecified] 12-12-2024 Episodic Other gastrointestinal disorders (1 source) Constipation, unspecified; Translations: [Constipation, unspecified] Onset: 03-01-2025 Episodic Other injuries and conditions due to external causes (2 sources) Traumatic AND/OR non-traumatic injury; Translations: [Other injury of unspecified body region, initial encounter] Onset: 02-04-2024 Episodic Other lower respiratory disease (16 sources) Persistent cough 05-01-2022 Episodic Other lower [...] 6.2cm x 4.7cm Other lower respiratory disease (16 sources) History of chronic obstructive airway disease; Translations: [Personal history of other diseases of the respiratory system] 09-22-2024 Episodic Other lower respiratory disease (14 sources) Dyspnea on exertion; Translations: [Other forms of dyspnea] 10-05-2024 Episodic Other lower respiratory disease (2 sources) Shortness of breath; Translations: [Shortness of breath] Onset: 10-05-2024 Episodic Other nervous system disorders (19 sources) Tingling of skin 03-09-2017 Episodic Comment on above: Fingers r/t carpal t unnel Other non-traumatic joint disorders (7 sources) Joint pain; Translations: [Pain in unspecified joint] 11-18-2006 Episodic Other non-traumatic joint disorders (5 sources) Knee pain 03-31-2024 Episodic Other nutritional; endocrine; and metabolic disorders (20 sources) Overweight in adulthood with body mass index of 25 or more but less than 30 12-23-2022 Episodic Other screening for suspected conditions (not mental disorders or infectious disease) (16 sources) Viral screening status 07-03-2022 Episodic Other skin disorders (1 source) Disorder of elbow; Translations: [Localized swelling, mass and lump, left upper limb] 01-12-2023 Episodic Other skin disorders (7 sources) Bilateral localized swelling of lower legs; Translations: [Localized swelling, mass and lump, lower limb, bilateral] 01-28-2025 Episodic Other upper respiratory disease (19 sources) Seasonal allergy 09-06-2019 Chronic Other upper respiratory infections (19 sources) Sinusitis 06-28-2019 Chronic Other upper respiratory infections (19 sources) Acute upper respiratory infection; Translations: [Acute upper respiratory infection, unspecified] 06-28-2019 Episodic Basia-; endo-; and myocarditis; cardiomyopathy (except that caused by tuberculosis or sexually transmitted disease) (20 sources) Pericardial effusion; Translations: [Pericardial effusion] 10-03-2024 Episodic Pleurisy; pneumothorax; pulmonary collapse (20 sources) Pleural effusion; Translations: [Pleural effusion, not elsewhere classified] Onset: 10-05-2024 10-06-2024 Episodic Poisoning by other medications and drugs (5 sources) Adverse reaction to drug 02-24-2024 Episodic Residual codes; unclassified (19 sources) Chronic back pain 03-09-2017 Episodic Residual codes; unclassified (19 sources) Insomnia 11-24-2019 Episodic Residual codes; unclassified (19 sources) Needs influenza immunization 07-01-2021 Episodic Residual codes; unclassified (19 sources) Requires vaccination 04-03-2020 Episodic Residual codes; unclassified (12 sources) Dependent edema 01-06-2023 Episodic Residual codes; unclassified (15 sources) Bilateral lower limb edema; Translations: [Localized edema] 09-14-2024 Episodic Residual codes; unclassified (1 source) Localized edema; Translations: [Localized edema] Onset: 02-26-2025 Episodic Respiratory failure; insufficiency; arrest (adult) (14 sources) Acute hypoxemic respiratory failure; Translations: [Acute respiratory failure with hypoxia] 10-05-2024 Episodic Rheumatoid arthritis and related disease (4 sources) Rheumatoid arthritis 03-09-2023 Chronic Secondary malignancies (20 sources) Secondary malignant neoplasm of liver; 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] 10-27-2024 Chronic Secondary malignancies (20 sources) Secondary malignant neoplasm of adrenal gland; Translations: [Secondary malignant neoplasm of unspecified adrenal gland] 10-27-2024 Chronic Secondary malignancies (2 sources) Secondary malignant neoplasm of left adrenal gland; 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] Onset: 02-20-2025 Chronic Secondary malignancies (2 sources) Secondary malignant neoplasm of liver and intrahepatic bile duct; 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] Onset: 02-20-2025 Chronic Skin and subcutaneous tissue infections (20 sources) Cellulitis of lower limb; Translations: [Cellulitis] 12-23-2022 Episodic Spondylosis; intervertebral disc disorders; other back problems (18 sources) Degeneration of intervertebral disc; Translations: [Degeneration of intervertebral disc] 04-30-2020 Chronic Spondylosis; intervertebral disc disorders; other back problems (19 sources) Chronic neck pain 03-09-2017 Episodic Sprains and strains (20 sources) Strain of abdominal muscle; Translations: [Strain of muscle, fascia and tendon of abdomen, initial encounter] 09-06-2019 Episodic Substance-related disorders (20 sources) Tobacco dependence syndrome; Translations: [Tobacco user] 12-12-2020 Chronic Thyroid disorders (20 sources) Thyroid nodule; Translations: [Goiter] Onset: 10-26-2024 03-09-2017 Chronic Unclassified (20 sources) Patient encounter status 04-03-2020 Unclassified (16 sources) Influenza vaccination declined 05-01-2022 Unclassified (8 sources) Drug therapy with explicit context 02-09-2024 Unclassified (1 source) Acute cough; Translations: [Acute cough] Onset: 05-31-2024 Unclassified (1 source) Other pericardial effusion (noninflammatory); Translations: [Other pericardial effusion (noninflammatory)] Onset: 10-03-2024 Unclassified (2 sources) New Patient; Translations: [New Patient] Onset: 10-03-2024 Unclassified (20 sources) Small cell carcinoma of left lung; [...] to chronic exposure to nonionizing radiation] Onset: 9 11-08-2008 Episodic E Codes: Adverse effects of medical drugs (1 source) Adverse effect of antineoplastic and immunosuppressive drugs, initial encounter; Translations: [Adverse effect of antineoplastic and immunosuppressive drugs, initial encounter] Onset: 5 Episodic Other aftercare (1 source) Encounter for adjustment and management of vascular access device; Translations: [Encounter for adjustment and management of vascular access device] Onset: 5 Episodic Other and unspecified benign neoplasm (7 sources) Benign neoplasm of skin of trunk; Translations: [Other benign neoplasm of skin of trunk] Onset: 9 11-08-2008 Episodic Other gastrointestinal disorders (2 sources) Dysphagia, unspecified; Translations: [Dysphagia, unspecified] Onset: 5 Episodic Other lower respiratory disease (4 sources) Other nonspecific abnormal finding of lung field; Translations: [Other nonspecific abnormal finding of lung field] Onset: 5 Episodic Other skin disorders (7 sources) Actinic keratosis; Translations: [Actinic keratosis] Onset: 9 11-08-2008 Episodic Other skin disorders (7 sources) Disorder of skin pigmentation; Translations: [Disorder of pigmentation, unspecified] Onset: 9 11-08-2008 Episodic Other skin disorders (7 sources) Seborrheic keratosis; Translations: [Other seborrheic keratosis] Onset: 9 11-08-2008 Episodic Screening and history of mental health and substance abuse codes (20 sources) Ex-smoker; Translations: [History of clinical finding in subject] Onset: 5 09-13-2024 Episodic Comment on above: smoked 40yrs 1 ppd QUIT 05/2024, SMOKED FOR 50+ YRS Unclassified (17 sources) Contusion of left lower leg, initial encounter 05-01-2020 Unclassified (4 sources) Pleural mass 10-17-2024 Unclassified (1 source) Other pericardial effusion (noninflammatory); Translations: [Other pericardial effusion (noninflammatory)] Onset: 5 Viral infection (7 sources) Verruca vulgaris; Translations: [Viral wart, unspecified] Onset: 9 11-08-2008 Episodic Results Test Name Value Interpretation Reference Range Facility [facility] 03-12-2025 Potassium [Moles/Vol] 3.8 mmol/L Normal 3.5-5.1 [facility] Comment on above: Performed By: #### K ####[place] [address] LABORATORYOrdered By: SYSTEM SYSTEM on 03-12-2025 Potassium [Moles/Vol] 3.8 mmol/L Normal 3.5 - 5.1 mmol/L AO ADM SS Anion gap in Serum or Plasma Ordered By: Alis Chance on 03-06-2025 Anion gap [Moles/Vol] 13 mmol/L - [facility] BUN/creatinine ratioOrdered By: Alis Chance on 03-06-2025 Urea nitrogen/Creatinine [Mass ratio] 17.7 mg/mg 10-20 [facility] Carbon dioxide, total [Moles /volume] in Central venous bloodOrdered By: Alis Chance on 03-06-2025 CO2 [Moles/Vol] 22.9 mmol/L 21.0-32.0 [facility] Chloride assayOrdered By: Charly Chance on 03-06-2025 Chloride [Moles/Vol] 100 mmol/L 98-108 [facility] Glomerular filtration rate ( GFR) estimation/1.73 sq m using serum, plasma, or whole bOrdered By: Alis Chance on 03-06-2025 GFR/1.73 sq M.predicted among non-blacks MDRD (S/P/Bld) [Vol rate/Area] 64 mL/min/{1.73_m2} >60 [facility] Comment on above: mL/min/1.73m2 CKD-EP I Creatinine Equation (2020) Magnesium measurement (mass/ volume)Ordered By: Alis Chance on 03-06-2025 Magnesium (Unsp spec) [Mass/Vol] 1.7 mg/dL 1.5-2.2 [facility] Potassium measurement (mass/ volume)Ordered By: Alis Chance on 03-06-2025 Potassium (Unsp spec) [Mass/Vol] 2.8 mmol/L Low 3.3-5.1 [facility] Serum creatinine measurement (mass/volume)Ordered By: Alis Chance on 03-06-2025 Creatinine [Mass/Vol] 0.94 mg/dL 0.70-1.[address] [facility] Serum glucose measurement (m ass/volume)Ordered By: Alis Chance on 03-06-2025 Glucose [Mass/Vol] 107 mg/dL High 70-99 [facility] Serum or plasma calcium usman urement (mass/volume)Ordered By: Alis Chance on 03-06-2025 Calcium [Mass/Vol] 7.7 mg/dL 7.6-11.0 [facility] Serum or plasma urea nitroge n measurement (mass/volume)Ordered By: Alis Chance on 03-06-2025 Urea nitrogen [Mass/Vol] 17 mg/dL 4-19 [facility] Sodium levelOrdered By: Maurice Chance on 03-06-2025 Sodium [Moles/Vol] 136 mmol/L 133-145 [facility] Brain W/WO Contraston 2024 Brain W/WO Contrast Normal [facility] [place] imaging r eportOrdered By: Shantel Moncada on 02-26-2025 Study report [facility] Imaging Services [address] [place] [address] Brain W/WO Contrast MR#: [id number] Acct: [id number] Name: KARINA FERNANDO Rep #: [id number] : [id number] F [id number] From: Yosef Moncada MD PCP: TORIBIO CASTILLO Status: REG CLI Study:Brain W/WO Contrast Date of Exam: 02/26/25 Exam# [id number] Ordering Dr: Anayeli Stern NP [employer]-C PROCEDURE: BRAIN W/WO CONTRAST 02/26/2025 REASON FOR EXAM: NAUSEA; SCLC R/O BRAIN MET TECHNIQUE: BRAIN W/WO CONTRAST Multiplanar and multisequence images were obtained. CONTRAST: Clariscan VOLUME: 13 mL COMPARISON: MRI brain with and without contrast, 10/17/2024 FINDINGS: There are 3 small areas of abnormal subcortical white matter signal abnormality,on the T2 and FLAIR images, in the left temporal lobe. There is no associated restricted diffusion or contrast enhancement. These areas were not apparent on the prior MR examination. There is no abnormal intracranial contrast enhancement. There is a normal sulcal pattern and gyral configuration. There is no evidence of acute intracranial hemorrhage or infarction. The mcneill-white differentiation is well preserved. There is no evidence of restricted diffusion. The ventricles and basilar cisterns are normal. There are normal flow voids demonstrated in the recognizedintracranial vessels. The cerebellum and brainstem are unremarkable. The cerebellar pontine angles arenormal. The craniovertebral junction is normal. The sella and suprasellar regions are normal. The orbits and retro-orbital regions are unremarkable. The nasal septum is midline. The paranasal sinuses are clear. The mastoid air cells are clear. There is normal bone marrow signal in the skull base and calvarium. MRI/Brain W/WO Contrast IMPRESSION: 1. Small areas of abnormal T2 and FLAIR signal in the left temporal lobe, as described. These were not apparent previously. The cause of these abnormalities is unclear but is most commonly associated withinflammation or primary neoplasm. No references to medication-related cause could be found. 2. Other findings as noted. Reading Location: [place] [address] CC: HOPE Win; TORIBIO CASTILLO ~ Platform Architect: Signed [facility] Work Phone: Absolute lymphocyte countOrd ered By: [facility] Robson on 02-20-2025 Lymphocytes Auto (Unsp spec) [#/Vol] 1.46 10*3/uL 0.83-4.51 [facility] Absolute neutrophil countOrd ered By: [facility] on 02-20-2025 Neutrophils (Bld) [#/Vol] 3.9 10*3/uL 2.0-7.7 [facility] Anion gap in Serum or Plasma [facility] 02-20-2025 Anion gap [Moles/Vol] 11 mmol/L 11-[address] [facility] Automated lymphocyte count a s percentage of total leukocytesOrdered By: [facility] on 02-20-2025 Lymphocytes/100 WBC Auto (Unsp spec) 23.2 % - [facility] BUN/creatinine ratioOrdered By: [facility] on 02-20-2025 Urea nitrogen/Creatinine [Mass ratio] 15.8 mg/mg - [facility] Basic Metabolic Profile (BMP )on 02-20-2025 BUN Normal - [facility] Comment on above: Result Comment: Canc elled via OM: Order cancelled - Patient discharged Performed By: #### L 100.0100, L500.2500 ####[facility] [address] [place], [place], [id number] BUN/CRE Normal - [facility] Comment on above: Result Comment: Canc elled via OM: Order cancelled - Patient discharged Performed By: #### L 100.0100, L500.2500 ####[facility] [address] [place], [address] Calcium Normal 7.6-11.0 [facility] Comment on above: Result Comment: Canc elled via OM: Order cancelled - Patient discharged Performed By: #### L 100.0100, L500.2500 ####[facility] [address] [place], [address] CL Normal 98-108 [facility] Comment on above: Result Comment: Canc elled via OM: Order cancelled - Patient discharged Performed By: #### L 100.0100, L500.2500 ####[facility] [address] [place], [address] CO2 Normal 21.0-32.0 [facility] Comment on above: Result Comment: Canc elled via OM: Order cancelled - Patient discharged Performed By: #### L 100.0100, L500.2500 ####[facility] [address] [place], [address] CREAT,SERUM Normal 0.70-1.20 [facility] Comment on above: Result Comment: Canc elled via OM: Order cancelled - Patient discharged Performed By: #### L 100.0100, L500.2500 ####[facility] [address] [place], [address] eGFR Normal >60 [facility] Comment on above: Result Comment: Canc elled via OM: Order cancelled - Patient discharged Performed By: #### L 100.0100, L500.2500 ####[facility] [address] [place], [address] GAP Normal 5-15 [facility] Comment on above: Result Comment: Canc elled via OM: Order cancelled - Patient discharged Performed By: #### L 100.0100, L500.2500 ####[facility] [address] [place], [address] GLU Normal 70-99 [facility] Comment on above: Result Comment: Canc elled via OM: Order cancelled - Patient discharged Performed By: #### L 100.0100, L500.2500 ####[facility] [address] [place], [address] Potassium Normal 3.3-5.1 [facility] Comment on above: Result Comment: Canc elled via OM: Order cancelled - Patient discharged Performed By: #### L 100.0100, L500.2500 ####[facility] [address] [place], [address] Basic Metabolic Profile (BMP) Normal 133-145 [facility] Comment on above: Result Comment: Canc elled via OM: Order cancelled - Patient discharged Performed By: #### L 100.0100, L500.2500 ####[facility] [address] [place], [address] Basophil percentageOrdered B y: Alis Chance on 02-20-2025 Basophils/100 WBC (Bld) 0.5 % 0-1 [facility] Bilirubin, totalOrdered By: Alis Chance on 02-20-2025 Bilirubin [Mass/Vol] 0.31 mg/dL 0.00-1.30 [facility] CBC W/Diff, Automatedon Absolute Lymph 1.46 X10 3/uL Normal 0.83-4.51 [facility] Comment on above: Performed By: #### L 100.0100, L500.4050 ####[facility] [address] [place], [address] Absolute Neut 3.9 X10 3/uL Normal 2.0-7.7 [facility] Comment on above: Performed By: #### L 100.0100, L500.4050 ####[facility] [address] [place], [address] Basophils/100 WBC (Bld) 0.5 % Normal 0-1 [facility] Comment on above: Performed By: #### L 100.0100, L500.4050 ####[facility] [address] [place], [address] Eosinophils/100 WBC (Bld) 0.3 % Normal 0-5 [facility] Comment on above: Performed By: #### L 100.0100, L500.4050 ####[facility] [address] [place], [address] Erythrocyte distribution width (RBC) [Ratio] 15.7 % High 11.6-14.6 [facility] Comment on above: Performed By: #### L 100.0100, L500.4050 ####[facility] [address] [place], [address] Hematocrit (Bld) [Volume fraction] 38.7 % Normal 37-47 [facility] Comment on above: Performed By: #### L 100.0100, L500.4050 ####[facility] [address] [place], [address] Hemoglobin (Bld) [Mass/Vol] 12.5 g/dL Normal 12.0-15.0 [facility] Comment on above: Performed By: #### L 100.0100, L500.4050 ####[facility] [address] [place], [address] IG% 0.200 Normal 0.0-0.9 [facility] Comment on above: Result Comment: IG% - Immature Granulocytes (promyelocytes, myelocytes andmetamyelocytes) > 1% indicates that a LEFT SHIFT is Present. Performed By: #### L 100.0100, L500.4050 ####[facility] [address] [place], [address] Lymphocytes/100 WBC (Bld) 23.2 % Normal 19-41 [facility] Comment on above: Performed By: #### L 100.0100, L500.4050 ####[facility] [address] [place], [address] MCH (RBC) [Entitic mass] 30.6 pg Normal 27.0-32.0 [facility] Comment on above: Performed By: #### L 100.0100, L500.4050 ####[facility] [address] [place], [address] MCHC (RBC) [Mass/Vol] 32.3 g/dL Normal 32-[address] [facility] Comment on above: Performed By: #### L 100.0100, L500.4050 ####[facility] [address] [place], [address] MCV (RBC) [Entitic vol] 94.9 fL Normal 81-99 [facility] Comment on above: Performed By: #### L 100.0100, L500.4050 ####[facility] [address] [place], [address] Monocytes/100 WBC (Bld) 13.7 % High 0-10 [facility] Comment on above: Performed By: #### L 100.0100, L500.4050 ####[facility] [address] [place], [address] Neutrophils/100 WBC (Bld) 62.1 % Normal 47-70 [facility] Comment on above: Performed By: #### L 100.0100, L500.4050 ####[facility] [address] [place], [address] Nucleated RBC (Bld) [#/Vol] 0 10*3/uL Normal 0-5 [facility] Comment on above: Performed By: #### L 100.0100, L500.4050 ####[facility] [address] [place], [address] Platelet mean volume (Bld) [Entitic vol] 8.8 fL Normal 6.2-12.0 [facility] Comment on above: Performed By: #### L 100.0100, L500.4050 ####[facility] [address] [place], [address] Platelets (Bld) [#/Vol] 207 10*3/uL Normal 150-450 [facility] Comment on above: Performed By: #### L 100.0100, L500.4050 ####[facility] [address] [place], [address] RBC (Bld) [#/Vol] 4.08 10*6/uL Low 4.2-5.4 [facility] Comment on above: Performed By: #### L 100.0100, L500.4050 ####[facility] [address] [place], [address] RDW SD 54.5 fl High 35.1-43.9 [facility] Comment on above: Performed By: #### L 100.0100, L500.4050 ####[facility] [address] [place], [address] WBC (Bld) [#/Vol] 6.3 10*3/uL Normal 4.4-11.0 [facility] Comment on above: Performed By: #### L 100.0100, L500.4050 ####[facility] [address] [place], [address] Absolute Neut Normal 2.0-7.7 [facility] Comment on above: Result Comment: Canc elled via OM: Order cancelled - Patient discharged Performed By: #### L 100.0100, L500.2500 ####[facility] [address] [place], [address] HCT Normal 37-47 [facility] Comment on above: Result Comment: Canc elled via OM: Order cancelled - Patient discharged Performed By: #### L 100.0100, L500.2500 ####[facility] [address] [place], [address] HGB Normal 12.0-15.0 [facility] Comment on above: Result Comment: Canc elled via OM: Order cancelled - Patient discharged Performed By: #### L 100.0100, L500.2500 ####[facility] [address] [place], [address] MCH Normal 27.0-32.0 [facility] Comment on above: Result Comment: Canc elled via OM: Order cancelled - Patient discharged Performed By: #### L 100.0100, L500.2500 ####[facility] [address] [place], [address] MCHC Normal 32-36 [facility] Comment on above: Result Comment: Canc elled via OM: Order cancelled - Patient discharged Performed By: #### L 100.0100, L500.2500 ####[facility] [address] [place], [address] MCV Normal 81-99 [facility] Comment on above: Result Comment: Canc elled via OM: Order cancelled - Patient discharged Performed By: #### L 100.0100, L500.2500 ####[facility] [address] [place], [address] NEUT% Normal 47-70 [facility] Comment on above: Result Comment: Canc elled via OM: Order cancelled - Patient discharged Performed By: #### L 100.0100, L500.2500 ####[facility] [address] [place], [address] PLT Normal 150-450 [facility] Comment on above: Result Comment: Canc elled via OM: Order cancelled - Patient discharged Performed By: #### L 100.0100, L500.2500 ####[facility] [address] [place], [address] RBC Normal 4.2-5.4 [facility] Comment on above: Result Comment: Canc elled via OM: Order cancelled - Patient discharged Performed By: #### L 100.0100, L500.2500 ####[facility] [address] [place], [address] RDW CV Normal 11.6-14.6 [facility] Comment on above: Result Comment: Canc elled via OM: Order cancelled - Patient discharged Performed By: #### L 100.0100, L500.2500 ####[facility] [address] [place], [address] RDW SD Normal 35.1-43.9 [facility] Comment on above: Result Comment: Canc elled via OM: Order cancelled - Patient discharged Performed By: #### L 100.0100, L500.2500 ####[facility] [address] [place], [address] WBC Normal 4.4-11.0 [facility] Comment on above: Result Comment: Canc elled via OM: Order cancelled - Patient discharged Performed By: #### L 100.0100, L500.2500 ####[facility] [address] [place], [address] Carbon dioxide, total [Moles /volume] in Central venous bloodOrdered By: Alis Chance on 02-20-2025 CO2 [Moles/Vol] 23.7 mmol/L 21.0-32.0 [facility] Chloride assayOrdered By: Charly Chance on 02-20-2025 Chloride [Moles/Vol] 104 mmol/L 98-108 [facility] Comprehensive Metabolic Prof ilon 02-20-2025 Albumin [Mass/Vol] 3.1 g/dL Low 3.4-4.8 [facility] Comment on above: Performed By: #### L 100.0100, L500.4050 ####[facility] [address] [place], [address] Albumin/Globulin [Mass ratio] 1.3 {ratio} Normal 0.9-2.4 [facility] Comment on above: Performed By: #### L 100.0100, L500.4050 ####[facility] [address] [place], [address] ALK PHOS 90 U/L Normal 35-104 [facility] Comment on above: Performed By: #### L 100.0100, L500.4050 ####[facility] [address] [place], [address] ALT [Catalytic activity/Vol] 29 U/L Normal <=34 [facility] Comment on above: Performed By: #### L 100.0100, L500.4050 ####[facility] [address] [place], [address] AST [Catalytic activity/Vol] 26 U/L Normal <=31 [facility] Comment on above: Performed By: #### L 100.0100, L500.4050 ####[facility] [address] [place], [address] Bilirubin [Mass/Vol] 0.31 mg/dL Normal 0.00-1.30 [facility] Comment on above: Performed By: #### L 100.0100, L500.4050 ####[facility] [address] [place], [address] BUN/CRE 15.8 RATIO Normal 10-20 [facility] Comment on above: Performed By: #### L 100.0100, L500.4050 ####[facility] [address] [place], [address] Calcium [Mass/Vol] 8.0 mg/dL Normal 7.6-11.0 [facility] Comment on above: Performed By: #### L 100.0100, L500.4050 ####[facility] [address] [place], [address] Chloride [Moles/Vol] 104 mmol/L Normal 98-108 [facility] Comment on above: Performed By: #### L 100.0100, L500.4050 ####[facility] [address] [place], [address] CO2 [Moles/Vol] 23.7 mmol/L Normal 21.0-32.0 [facility] Comment on above: Performed By: #### L 100.0100, L500.4050 ####[facility] [address] [place], [address] Creatinine [Mass/Vol] 0.88 mg/dL Normal 0.70-1.[address] [facility] Comment on above: Performed By: #### L 100.0100, L500.4050 ####[facility] [address] [place], [address] ECRCL 52.31 ml/min Normal 50-250 [facility] Comment on above: Performed By: #### L 100.0100, L500.4050 ####[facility] [address] [place], [address] GAP 11 Normal 5-15 [facility] Comment on above: Performed By: #### L 100.0100, L500.4050 ####[facility] [address] [place], [address] GFR/1.73 sq M.predicted among non-blacks MDRD (S/P/Bld) [Vol rate/Area] 69 mL/min/{1.73_m2} Normal >60 [facility] Comment on above: Result Comment: mL/m in/1.73m2 CKD-EPI Creatinine Equation (2020) Performed By: #### L 100.0100, L500.4050 ####[facility] [address] [place], [address] Globulin (S) [Mass/Vol] 2.4 g/dL Normal 2.2-4.2 [facility] Comment on above: Performed By: #### L 100.0100, L500.4050 ####[facility] [address] [place], [address] Glucose [Mass/Vol] 103 mg/dL High 70-99 [facility] Comment on above: Performed By: #### L 100.0100, L500.4050 ####[facility] [address] [place], [address] Potassium [Moles/Vol] 3.0 mmol/L Low 3.3-5.[address] [facility] Comment on above: Performed By: #### L 100.0100, L500.4050 ####[facility] [address] [place], [address] Sodium [Moles/Vol] 139 mmol/L Normal 133-145 [facility] Comment on above: Performed By: #### L 100.0100, L500.4050 ####[facility] [address] [place], [address] T PROT 5.5 g/dL Low 5.9-8.4 [facility] Comment on above: Performed By: #### L 100.0100, L500.4050 ####[facility] [address] [place], [address] Urea nitrogen [Mass/Vol] 14 mg/dL Normal 4-19 [facility] Comment on above: Performed By: #### L 100.0100, L500.4050 ####[facility] [address] [place], [address] Eosinophil percentageOrdered By: Alis Chance on 02-20-2025 Eosinophils/100 WBC (Bld) 0.3 % 0-5 [facility] Erythrocyte distribution wid th ratioOrdered By: Alis Chance on 02-20-2025 Erythrocyte distribution width (RBC) [Ratio] 15.7 % High 11.6-14.6 [facility] Erythrocyte distribution wid th standard deviationOrdered By: Alis Chance on 02-20-2025 Erythrocyte distribution width (RBC) [Ratio] 54.5 fl High 35.1-43.9 [facility] Glomerular filtration rate ( GFR) estimation/1.73 sq m using serum, plasma, or whole bOrdered By: Alis Chance on 02-20-2025 GFR/1.73 sq M.predicted among non-blacks MDRD (S/P/Bld) [Vol rate/Area] 69 mL/min/{1.73_m2} >60 [facility] Comment on above: mL/min/1.73m2 CKD-EP I Creatinine Equation (2020) Hematocrit Auto (Bld) [Volum e fraction]Ordered By: [facility] on 02-20-2025 Hematocrit (Bld) [Volume fraction] 38.7 % 37-47 [facility] Hemoglobin measurementOrdere d By: [facility] on 02-20-2025 Hemoglobin (Bld) [Mass/Vol] 12.5 g/dL 12.0-15.0 [facility] Immature granulocytes/100 WB C Auto (Bld)Ordered By: Alis Chance on 02-20-2025 Immature granulocytes/100 WBC (Bld) 0.200 % 0.0-0.9 [facility] Comment on above: IG% - Immature Granu locytes (promyelocytes, myelocytes and metamyelocytes) > 1% indicates that a LEFT SHIFT is Present. L509.6001on 02-20-2025 CORTISOL 14.90 ug/dL Normal 6.02-18.40 [facility] Comment on above: Performed By: #### L 509.6001, L506.0400, L501.2300, L501.9520, L501.5200 ####[facility] [address] [place], [place], [id number] Laboratory - Chemistry and C hemistry - challengeOrdered By: Alis Chance on 02-20-2025 AST [Catalytic activity/Vol] 26 U/L <32 [facility] MCV (mean corpuscular volume ) determinationOrdered By: Alis Chance on 02-20-2025 MCV (RBC) [Entitic vol] 94.9 fL 81-99 [facility] Magnesiumon 02-20-2025 Magnesium [Mass/Vol] 2.0 mg/dL Normal 1.5-2.2 [facility] Comment on above: Performed By: #### L 509.6001, L506.0400, L501.2300, L501.9520, L501.5200 ####[facility] [address] [place], [place], [id number] Magnesium measurement (mass/ volume)Ordered By: Alis Chance on 02-20-2025 Magnesium (Unsp spec) [Mass/Vol] 2.0 mg/dL 1.5-2.2 [facility] Mean corpuscular hemoglobin (MCH) determinationOrdered By: Alis Chance on 02-20-2025 MCH (RBC) [Entitic mass] 30.6 pg 27.0-32.0 [facility] Mean corpuscular hemoglobin concentration (MCHC) determinationOrdered By: Alis Chance on 02-20-2025 MCHC (RBC) [Mass/Vol] 32.3 g/dL 32-[address] [facility] Mean platelet volume determi nationOrdered By: Alis Chance on 02-20-2025 Platelet mean volume (Bld) [Entitic vol] 8.8 fL 6.2-12.0 [facility] Monocyte percentageOrdered B y: Alis Chance on 02-20-2025 Monocytes/100 WBC (Bld) 13.7 % High 0-10 [facility] Neutrophil percentageOrdered By: [facility] on 02-20-2025 Neutrophils/100 WBC (Bld) 62.1 % 47-70 [facility] Nucleated red blood cell per centageOrdered By: Alis Chance on 02-20-2025 Nucleated RBC/100 WBC (Bld) [Ratio] 0 % 0-5 [facility] Oncology Visit Reporton Oncology Visit Report Normal [facility] Phosphoruson 02-20-2025 Phosphate [Mass/Vol] 2.6 mg/dL Low 2.7-4.5 [facility] Comment on above: Performed By: #### L 509.6001, L506.0400, L501.2300, L501.9520, L501.5200 ####[facility] [address] [place], [address] Platelet countOrdered By: Charly Chance on 02-20-2025 Platelets (Bld) [#/Vol] 207 10*3/uL 150-450 [facility] Potassium measurement (mass/ volume)Ordered By: Alis Chance on 02-20-2025 Potassium (Unsp spec) [Mass/Vol] 3.0 mmol/L Low 3.3-5.1 [facility] RBC Auto (Bld) [#/Vol]Ordere d By: Alis Chance on 02-20-2025 RBC (Bld) [#/Vol] 4.08 10*6/uL Low 4.2-5.4 [facility] Serum creatinine measurement (mass/volume)Ordered By: Alis Chance on 02-20-2025 Creatinine [Mass/Vol] 0.88 mg/dL 0.70-1.[address] [facility] Serum globulin measurementOr dered By: Alis Chance on 02-20-2025 Globulin (S) [Mass/Vol] 2.4 g/dL 2.2-4.2 [facility] Serum glucose measurement (m ass/volume)Ordered By: Alis Chance on 02-20-2025 Glucose [Mass/Vol] 103 mg/dL High 70-99 [facility] Serum or plasma alanine vicente otransferase (ALT) measurementOrdered By: Alis Chance on 02-20-2025 ALT [Catalytic activity/Vol] 29 U/L <35 [facility] Serum or plasma albumin usman urement (mass/volume)Ordered By: Alis Chance on 02-20-2025 Albumin [Mass/Vol] 3.1 g/dL Low 3.4-4.8 [facility] Serum or plasma albumin/glob ulin mass ratioOrdered By: Alis Chance on 02-20-2025 Albumin/Globulin [Mass ratio] 1.3 {ratio} 0.9-2.4 [facility] Serum or plasma alkaline marcela sphatase measurementOrdered By: Alis Chance on 02-20-2025 ALP [Catalytic activity/Vol] 90 U/L 35-104 [facility] Serum or plasma calcium usman urement (mass/volume)Ordered By: Alis Chance on 02-20-2025 Calcium [Mass/Vol] 8.0 mg/dL 7.6-11.0 [facility] Serum or plasma cortisol fidel surement (mass/volume)Ordered By: Alis Chance on 02-20-2025 Cortisol [Mass/Vol] 14.90 ug/dL 6.02-18.40 [facility] Serum or plasma urea nitroge n measurement (mass/volume)Ordered By: Alis Chance on 02-20-2025 Urea nitrogen [Mass/Vol] 14 mg/dL 4-19 [facility] Sodium levelOrdered By: Maurice Chance on 02-20-2025 Sodium [Moles/Vol] 139 mmol/L 133-145 [facility] T4 Free Directon 02-20-2025 T4 FREE DIRECT 1.50 ng/dL High 0.76-1.46 [facility] Comment on above: Performed By: #### L 509.6001, L506.0400, L501.2300, L501.9520, L501.5200 ####[facility] [address] [place], [address] T4 freeOrdered By: Alis austin on 02-20-2025 Free T4 [Mass/Vol] 1.50 ng/dL High 0.76-1.46 [facility] TSH DL <= 0.005 mIU/L QnOrde red By: Alis Chance on 02-20-2025 TSH Qn 0.678 uIU/mL 0.300-4.200 [facility] Thyroid Stim Hormone (TSH)on 02-20-2025 TSH 0.678 uIU/mL Normal 0.300-4.200 [facility] Comment on above: Performed By: #### L 509.6001, L506.0400, L501.2300, L501.9520, L501.5200 ####[facility] [address] [place], [address] Total proteinOrdered By: Kitty Powellarron on 02-20-2025 Protein [Mass/Vol] 5.5 g/dL Low 5.9-8.4 [facility] White blood cell (WBC) count Ordered By: Alis Robson on 02-20-2025 WBC (Bld) [#/Vol] 6.3 10*3/uL 4.4-11.0 [facility] Basic Metabolic Profile (BMP )on 02-19-2025 BUN Normal 4-19 [facility] Comment on above: Result Comment: Canc elled via OM: Order cancelled - Patient discharged Performed By: #### L 100.0100, L500.2500 ####[facility] [address] [place], [address] BUN/CRE Normal 10-20 [facility] Comment on above: Result Comment: Canc elled via OM: Order cancelled - Patient discharged Performed By: #### L 100.0100, L500.2500 ####[facility] [address] [place], [address] Calcium Normal 7.6-11.0 [facility] Comment on above: Result Comment: Canc elled via OM: Order cancelled - Patient discharged Performed By: #### L 100.0100, L500.2500 ####[facility] [address] [place], [address] CL Normal 98-108 [facility] Comment on above: Result Comment: Canc elled via OM: Order cancelled - Patient discharged Performed By: #### L 100.0100, L500.2500 ####[facility] [address] [place], [address] CO2 Normal 21.0-32.0 [facility] Comment on above: Result Comment: Canc elled via OM: Order cancelled - Patient discharged Performed By: #### L 100.0100, L500.2500 ####[facility] [address] [place], [address] CREAT,SERUM Normal 0.70-1.20 [facility] Comment on above: Result Comment: Canc elled via OM: Order cancelled - Patient discharged Performed By: #### L 100.0100, L500.2500 ####[facility] [address] [place], [address] eGFR Normal >60 [facility] Comment on above: Result Comment: Canc elled via OM: Order cancelled - Patient discharged Performed By: #### L 100.0100, L500.2500 ####[facility] [address] [place], [address] GAP Normal 5-15 [facility] Comment on above: Result Comment: Canc elled via OM: Order cancelled - Patient discharged Performed By: #### L 100.0100, L500.2500 ####[facility] [address] [place], [address] GLU Normal 70-99 [facility] Comment on above: Result Comment: Canc elled via OM: Order cancelled - Patient discharged Performed By: #### L 100.0100, L500.2500 ####[facility] [address] [place], [address] Potassium Normal 3.3-5.1 [facility] Comment on above: Result Comment: Canc elled via OM: Order cancelled - Patient discharged Performed By: #### L 100.0100, L500.2500 ####[facility] [address] [place], [address] Basic Metabolic Profile (BMP) Normal 133-145 [facility] Comment on above: Result Comment: Canc elled via OM: Order cancelled - Patient discharged Performed By: #### L 100.0100, L500.2500 ####[facility] [address] [place], [address] CBC W/Diff, Automatedon 08-0 -2024 Absolute Neut Normal 2.0-7.7 [facility] Comment on above: Result Comment: Canc elled via OM: Order cancelled - Patient discharged Performed By: #### L 100.0100, L500.2500 ####[facility] [address] [place], [address] HCT Normal 37-47 [facility] Comment on above: Result Comment: Canc elled via OM: Order cancelled - Patient discharged Performed By: #### L 100.0100, L500.2500 ####[facility] [address] [place], [address] HGB Normal 12.0-15.0 [facility] Comment on above: Result Comment: Canc elled via OM: Order cancelled - Patient discharged Performed By: #### L 100.0100, L500.2500 ####[facility] [address] [place], [address] MCH Normal 27.0-32.0 [facility] Comment on above: Result Comment: Canc elled via OM: Order cancelled - Patient discharged Performed By: #### L 100.0100, L500.2500 ####[facility] [address] [place], [address] MCHC Normal 32-36 [facility] Comment on above: Result Comment: Canc elled via OM: Order cancelled - Patient discharged Performed By: #### L 100.0100, L500.2500 ####[facility] [address] [place], [address] MCV Normal 81-99 [facility] Comment on above: Result Comment: Canc elled via OM: Order cancelled - Patient discharged Performed By: #### L 100.0100, L500.2500 ####[facility] [address] [place], [address] NEUT% Normal 47-70 [facility] Comment on above: Result Comment: Canc elled via OM: Order cancelled - Patient discharged Performed By: #### L 100.0100, L500.2500 ####[facility] [address] [place], [address] PLT Normal 150-450 [facility] Comment on above: Result Comment: Canc elled via OM: Order cancelled - Patient discharged Performed By: #### L 100.0100, L500.2500 ####[facility] [address] [place], [address] RBC Normal 4.2-5.4 [facility] Comment on above: Result Comment: Canc elled via OM: Order cancelled - Patient discharged Performed By: #### L 100.0100, L500.2500 ####[facility] [address] [place], [address] RDW CV Normal 11.6-14.6 [facility] Comment on above: Result Comment: Canc elled via OM: Order cancelled - Patient discharged Performed By: #### L 100.0100, L500.2500 ####[facility] [address] [place], [address] RDW SD Normal 35.1-43.9 [facility] Comment on above: Result Comment: Canc elled via OM: Order cancelled - Patient discharged Performed By: #### L 100.0100, L500.2500 ####[facility] [address] [place], [address] WBC Normal 4.4-11.0 [facility] Comment on above: Result Comment: Canc elled via OM: Order cancelled - Patient discharged Performed By: #### L 100.0100, L500.2500 ####[facility] [address] [place], [address] Echo, Limited Studyon 2024 Echo, Limited Study Normal [facility] Limited echocardiogram repor tOrdered By: Porter Preston on 02-19-[address] [facility] [address] [place] [address] Echo, Limited Study 02/19/25 0916 MR#: [id number] Acct: [id number] Name: KARINA FERNANDO Rep #:[id number] : 1950 74 From: Porter Jain Attending Dr: Dr. Kilo Morse MD Status: REG CLI Ordering Dr: Kilo Morse MD Date: 02/19/25 Location: [facility] Sex: F C Admitted: Reason For Study Reason For Study: Pericardial Effusion Procedure This was a limited 2D transthoracic echocardiogram. Myocardial strain analysis was performed in this exam to aid in the assessment of cardiac function. Patient refused Definity. Exam performed in department. Left Ventricle Normal LV size. The global longitudinal strain = -17.6 % (normal). The left ventricular ejection fraction is 55 %. No regional wall motion abnormalities noted. Right Ventricle Normal RV size. Normal systolic function. Atria Normal left atrium. Normal right atrium. Lipomatous hypertrophy of the atrial septum. Mitral Valve Normal mitral valve. Tricuspid Valve Normal tricuspid valve. Mild (1+) tricuspid valve insufficiency. Pulmonary artery systolic pressure is 42 mmHg. Pulmonic Valve Normal pulmonic valve. Great Vessels Normal aortic root. The pulmonary artery is normal size. Inferior vena cava collapse with respiration. Pericardium/Pleural Trivial pericardial effusion. MMode/2D Measurements & Calculations LVIDd: 4.1 cm IVSd: 0.81 cm LAV(MOD-sp4): 50.5 ml LVIDs: 2.6 cm LVPWd: 0.79 cm RVDd: 3.3 cm FS: 36.8 % _ LVAd ap4: 23.6 cm2 SV(MOD-sp4): 35.8 ml SV(sp4-el): 38.1 ml LVLd ap4: 6.9 cm SI(MOD-sp4): 20.5 ml/m2 EDV(MOD-sp4): 65.0 ml EDV(sp4-el): 68.6 ml LVAs ap4: 15.1 cm2 LVLs ap4: 6.3 cm ESV(MOD-sp4): 29.3 ml ESV(sp4-el): 30.5 ml EF(MOD-sp4): 55.0 % EF(sp4-el): 55.5 % ___ LA A4 area: 17.0 cm2 RA A4 area: 12.9 cm2 Doppler Measurements & Calculations TR max tiki: 309.1 cm/sec TR max P.2 mmHg ECHO/Echo, Limited Study Interpretation Summary Normal LV size. The global longitudinal strain = -17.6 % (normal). The left ventricular ejection fraction is 55 %. Lipomatous hypertrophy of the atrial septum. Mild (1+) tricuspid valve insufficiency. Pulmonary artery systolic pressure is 42 mmHg. Ordering Physician: Kilo Morse Referring Physician: JOSELIN MAURER Performed By: Brodwolf, Kenneth, RCS 02/19/254 Date _ Porter Preston MD CC: Dr. Kilo Morse MD; TORIBIO CASTILLO ~ Date Dictated: 02/19/25915 Date Transcribed: 02/19/251443 Platform Architect: Signed [facility] Work Phone: Basic Metabolic Profile (BMP )on 02-18-2025 BUN Normal 4-19 [facility] Comment on above: Result Comment: Canc elled via OM: Order cancelled - Patient discharged Performed By: #### L 500.2500, L100.0100 ####[facility] [address] [place], [address] BUN/CRE Normal 10-20 [facility] Comment on above: Result Comment: Canc elled via OM: Order cancelled - Patient discharged Performed By: #### L 500.2500, L100.0100 ####[facility] [address] [place], [address] Calcium Normal 7.6-11.0 [facility] Comment on above: Result Comment: Canc elled via OM: Order cancelled - Patient discharged Performed By: #### L 500.2500, L100.0100 ####[facility] [address] [place], [address] CL Normal 98-108 [facility] Comment on above: Result Comment: Canc elled via OM: Order cancelled - Patient discharged Performed By: #### L 500.2500, L100.0100 ####[facility] [address] [place], [address] CO2 Normal 21.0-32.0 [facility] Comment on above: Result Comment: Canc elled via OM: Order cancelled - Patient discharged Performed By: #### L 500.2500, L100.0100 ####[facility] [address] [place], [address] CREAT,SERUM Normal 0.70-1.20 [facility] Comment on above: Result Comment: Canc elled via OM: Order cancelled - Patient discharged Performed By: #### L 500.2500, L100.0100 ####[facility] [address] [place], [address] eGFR Normal >60 [facility] Comment on above: Result Comment: Canc elled via OM: Order cancelled - Patient discharged Performed By: #### L 500.2500, L100.0100 ####[facility] [address] [place], [address] GAP Normal 5-15 [facility] Comment on above: Result Comment: Canc elled via OM: Order cancelled - Patient discharged Performed By: #### L 500.2500, L100.0100 ####[facility] [address] [place], [address] GLU Normal 70-99 [facility] Comment on above: Result Comment: Canc elled via OM: Order cancelled - Patient discharged Performed By: #### L 500.2500, L100.0100 ####[facility] [address] [place], [address] Potassium Normal 3.3-5.1 [facility] Comment on above: Result Comment: Canc elled via OM: Order cancelled - Patient discharged Performed By: #### L 500.2500, L100.0100 ####[facility] [address] [place], [address] Basic Metabolic Profile (BMP) Normal 133-145 [facility] Comment on above: Result Comment: Canc elled via OM: Order cancelled - Patient discharged Performed By: #### L 500.2500, L100.0100 ####[facility] [address] [place], [address] CBC W/Diff, Automatedon 08-0 -2024 Absolute Neut Normal 2.0-7.7 [facility] Comment on above: Result Comment: Canc elled via OM: Order cancelled - Patient discharged Performed By: #### L 500.2500, L100.0100 ####[facility] [address] [place], [address] HCT Normal 37-47 [facility] Comment on above: Result Comment: Canc elled via OM: Order cancelled - Patient discharged Performed By: #### L 500.2500, L100.0100 ####[facility] [address] [place], [address] HGB Normal 12.0-15.0 [facility] Comment on above: Result Comment: Canc elled via OM: Order cancelled - Patient discharged Performed By: #### L 500.2500, L100.0100 ####[facility] [address] [place], [address] MCH Normal 27.0-32.0 [facility] Comment on above: Result Comment: Canc elled via OM: Order cancelled - Patient discharged Performed By: #### L 500.2500, L100.0100 ####[facility] [address] [place], [address] MCHC Normal 32-36 [facility] Comment on above: Result Comment: Canc elled via OM: Order cancelled - Patient discharged Performed By: #### L 500.2500, L100.0100 ####[facility] [address] [place], [address] MCV Normal 81-99 [facility] Comment on above: Result Comment: Canc elled via OM: Order cancelled - Patient discharged Performed By: #### L 500.2500, L100.0100 ####[facility] [address] [place], [address] NEUT% Normal 47-70 [facility] Comment on above: Result Comment: Canc elled via OM: Order cancelled - Patient discharged Performed By: #### L 500.2500, L100.0100 ####[facility] [address] [place], [address] PLT Normal 150-450 [facility] Comment on above: Result Comment: Canc elled via OM: Order cancelled - Patient discharged Performed By: #### L 500.2500, L100.0100 ####[facility] [address] [place], [address] RBC Normal 4.2-5.4 [facility] Comment on above: Result Comment: Canc elled via OM: Order cancelled - Patient discharged Performed By: #### L 500.2500, L100.0100 ####[facility] [address] [place], [address] RDW CV Normal 11.6-14.6 [facility] Comment on above: Result Comment: Canc elled via OM: Order cancelled - Patient discharged Performed By: #### L 500.2500, L100.0100 ####[facility] [address] [place], [address] RDW SD Normal 35.1-43.9 [facility] Comment on above: Result Comment: Canc elled via OM: Order cancelled - Patient discharged Performed By: #### L 500.2500, L100.0100 ####[facility] [address] [place], [address] WBC Normal 4.4-11.0 [facility] Comment on above: Result Comment: Canc elled via OM: Order cancelled - Patient discharged Performed By: #### L 500.2500, L100.0100 ####[facility] [address] [place], [address] Basic Metabolic Profile (BMP )on 02-17-2025 BUN Normal 4-19 [facility] Comment on above: Result Comment: Canc elled via OM: Order cancelled - Patient discharged Performed By: #### L 500.2500, L100.0100 ####[facility] [address] [place], [address] BUN/CRE Normal 10-20 [facility] Comment on above: Result Comment: Canc elled via OM: Order cancelled - Patient discharged Performed By: #### L 500.2500, L100.0100 ####[facility] [address] [place], [address] Calcium Normal 7.6-11.0 [facility] Comment on above: Result Comment: Canc elled via OM: Order cancelled - Patient discharged Performed By: #### L 500.2500, L100.0100 ####[facility] [address] [place], [address] CL Normal 98-108 [facility] Comment on above: Result Comment: Canc elled via OM: Order cancelled - Patient discharged Performed By: #### L 500.2500, L100.0100 ####[facility] [address] [place], [address] CO2 Normal 21.0-32.0 [facility] Comment on above: Result Comment: Canc elled via OM: Order cancelled - Patient discharged Performed By: #### L 500.2500, L100.0100 ####[facility] [address] [place], [address] CREAT,SERUM Normal 0.70-1.20 [facility] Comment on above: Result Comment: Canc elled via OM: Order cancelled - Patient discharged Performed By: #### L 500.2500, L100.0100 ####[facility] [address] [place], [address] eGFR Normal >60 [facility] Comment on above: Result Comment: Canc elled via OM: Order cancelled - Patient discharged Performed By: #### L 500.2500, L100.0100 ####[facility] [address] [place], [address] GAP Normal 5-15 [facility] Comment on above: Result Comment: Canc elled via OM: Order cancelled - Patient discharged Performed By: #### L 500.2500, L100.0100 ####[facility] [address] [place], [address] GLU Normal 70-99 [facility] Comment on above: Result Comment: Canc elled via OM: Order cancelled - Patient discharged Performed By: #### L 500.2500, L100.0100 ####[facility] [address] [place], [address] Potassium Normal 3.3-5.1 [facility] Comment on above: Result Comment: Canc elled via OM: Order cancelled - Patient discharged Performed By: #### L 500.2500, L100.0100 ####[facility] [address] [place], [address] Basic Metabolic Profile (BMP) Normal 133-145 [facility] Comment on above: Result Comment: Canc elled via OM: Order cancelled - Patient discharged Performed By: #### L 500.2500, L100.0100 ####[facility] [address] [place], [address] CBC W/Diff, Automatedon 08-0 2-2024 Absolute Neut Normal 2.0-7.7 [facility] Comment on above: Result Comment: Canc elled via OM: Order cancelled - Patient discharged Performed By: #### L 500.2500, L100.0100 ####[facility] [address] [place], [address] HCT Normal 37-47 [facility] Comment on above: Result Comment: Canc elled via OM: Order cancelled - Patient discharged Performed By: #### L 500.2500, L100.0100 ####[facility] [address] [place], [address] HGB Normal 12.0-15.0 [facility] Comment on above: Result Comment: Canc elled via OM: Order cancelled - Patient discharged Performed By: #### L 500.2500, L100.0100 ####[facility] [address] [place], [address] MCH Normal 27.0-32.0 [facility] Comment on above: Result Comment: Canc elled via OM: Order cancelled - Patient discharged Performed By: #### L 500.2500, L100.0100 ####[facility] [address] [place], [address] MCHC Normal 32-36 [facility] Comment on above: Result Comment: Canc elled via OM: Order cancelled - Patient discharged Performed By: #### L 500.2500, L100.0100 ####[facility] [address] [place], [address] MCV Normal 81-99 [facility] Comment on above: Result Comment: Canc elled via OM: Order cancelled - Patient discharged Performed By: #### L 500.2500, L100.0100 ####[facility] [address] [place], [address] NEUT% Normal 47-70 [facility] Comment on above: Result Comment: Canc elled via OM: Order cancelled - Patient discharged Performed By: #### L 500.2500, L100.0100 ####[facility] [address] [place], [address] PLT Normal 150-450 [facility] Comment on above: Result Comment: Canc elled via OM: Order cancelled - Patient discharged Performed By: #### L 500.2500, L100.0100 ####[facility] [address] [place], [address] RBC Normal 4.2-5.4 [facility] Comment on above: Result Comment: Canc elled via OM: Order cancelled - Patient discharged Performed By: #### L 500.2500, L100.0100 ####[facility] [address] [place], [address] RDW CV Normal 11.6-14.6 [facility] Comment on above: Result Comment: Canc elled via OM: Order cancelled - Patient discharged Performed By: #### L 500.2500, L100.0100 ####[facility] [address] [place], [address] RDW SD Normal 35.1-43.9 [facility] Comment on above: Result Comment: Canc elled via OM: Order cancelled - Patient discharged Performed By: #### L 500.2500, L100.0100 ####[facility] [address] [place], [address] WBC Normal 4.4-11.0 [facility] Comment on above: Result Comment: Canc elled via OM: Order cancelled - Patient discharged Performed By: #### L 500.2500, L100.0100 ####[facility] [address] [place], [address] Basic Metabolic Profile (BMP )on 02-16-2025 BUN Normal 4-19 [facility] Comment on above: Result Comment: Canc elled via OM: Order cancelled - Patient discharged Performed By: #### L 100.0100, L500.2500 ####[facility] [address] [place], [address] BUN/CRE Normal 10-20 [facility] Comment on above: Result Comment: Canc elled via OM: Order cancelled - Patient discharged Performed By: #### L 100.0100, L500.2500 ####[facility] [address] [place], [address] Calcium Normal 7.6-11.0 [facility] Comment on above: Result Comment: Canc elled via OM: Order cancelled - Patient discharged Performed By: #### L 100.0100, L500.2500 ####[facility] [address] [place], [address] CL Normal 98-108 [facility] Comment on above: Result Comment: Canc elled via OM: Order cancelled - Patient discharged Performed By: #### L 100.0100, L500.2500 ####[facility] [address] [place], [address] CO2 Normal 21.0-32.0 [facility] Comment on above: Result Comment: Canc elled via OM: Order cancelled - Patient discharged Performed By: #### L 100.0100, L500.2500 ####[facility] [address] [place], [address] CREAT,SERUM Normal 0.70-1.20 [facility] Comment on above: Result Comment: Canc elled via OM: Order cancelled - Patient discharged Performed By: #### L 100.0100, L500.2500 ####[facility] [address] [place], [address] eGFR Normal >60 [facility] Comment on above: Result Comment: Canc elled via OM: Order cancelled - Patient discharged Performed By: #### L 100.0100, L500.2500 ####[facility] [address] [place], [address] GAP Normal 5-15 [facility] Comment on above: Result Comment: Canc elled via OM: Order cancelled - Patient discharged Performed By: #### L 100.0100, L500.2500 ####[facility] [address] [place], [address] GLU Normal 70-99 [facility] Comment on above: Result Comment: Canc elled via OM: Order cancelled - Patient discharged Performed By: #### L 100.0100, L500.2500 ####[facility] [address] [place], [address] Potassium Normal 3.3-5.1 [facility] Comment on above: Result Comment: Canc elled via OM: Order cancelled - Patient discharged Performed By: #### L 100.0100, L500.2500 ####[facility] [address] [place], [address] Basic Metabolic Profile (BMP) Normal 133-145 [facility] Comment on above: Result Comment: Canc elled via OM: Order cancelled - Patient discharged Performed By: #### L 100.0100, L500.2500 ####[facility] [address] [place], [address] CBC W/Diff, Automatedon 08-0 -2024 Absolute Neut Normal 2.0-7.7 [facility] Comment on above: Result Comment: Canc elled via OM: Order cancelled - Patient discharged Performed By: #### L 100.0100, L500.2500 ####[facility] [address] [place], [address] HCT Normal 37-47 [facility] Comment on above: Result Comment: Canc elled via OM: Order cancelled - Patient discharged Performed By: #### L 100.0100, L500.2500 ####[facility] [address] [place], [address] HGB Normal 12.0-15.0 [facility] Comment on above: Result Comment: Canc elled via OM: Order cancelled - Patient discharged Performed By: #### L 100.0100, L500.2500 ####[facility] [address] [place], [address] MCH Normal 27.0-32.0 [facility] Comment on above: Result Comment: Canc elled via OM: Order cancelled - Patient discharged Performed By: #### L 100.0100, L500.2500 ####[facility] [address] [place], [address] MCHC Normal 32-36 [facility] Comment on above: Result Comment: Canc elled via OM: Order cancelled - Patient discharged Performed By: #### L 100.0100, L500.2500 ####[facility] [address] [place], [address] MCV Normal 81-99 [facility] Comment on above: Result Comment: Canc elled via OM: Order cancelled - Patient discharged Performed By: #### L 100.0100, L500.2500 ####[facility] [address] [place], [address] NEUT% Normal 47-70 [facility] Comment on above: Result Comment: Canc elled via OM: Order cancelled - Patient discharged Performed By: #### L 100.0100, L500.2500 ####[facility] [address] [place], [address] PLT Normal 150-450 [facility] Comment on above: Result Comment: Canc elled via OM: Order cancelled - Patient discharged Performed By: #### L 100.0100, L500.2500 ####[facility] [address] [place], [address] RBC Normal 4.2-5.4 [facility] Comment on above: Result Comment: Canc elled via OM: Order cancelled - Patient discharged Performed By: #### L 100.0100, L500.2500 ####[facility] [address] [place], [address] RDW CV Normal 11.6-14.6 [facility] Comment on above: Result Comment: Canc elled via OM: Order cancelled - Patient discharged Performed By: #### L 100.0100, L500.2500 ####[facility] [address] [place], [address] RDW SD Normal 35.1-43.9 [facility] Comment on above: Result Comment: Canc elled via OM: Order cancelled - Patient discharged Performed By: #### L 100.0100, L500.2500 ####[facility] [address] [place], [address] WBC Normal 4.4-11.0 [facility] Comment on above: Result Comment: Canc elled via OM: Order cancelled - Patient discharged Performed By: #### L 100.0100, L500.2500 ####[facility] [address] [place], [address] Basic Metabolic Profile (BMP )on 02-15-2025 BUN Normal 4-19 [facility] Comment on above: Result Comment: Canc elled via OM: Order cancelled - Patient discharged Performed By: #### L 100.0100, L500.2500 ####[facility] [address] [place], [address] BUN/CRE Normal 10-20 [facility] Comment on above: Result Comment: Canc elled via OM: Order cancelled - Patient discharged Performed By: #### L 100.0100, L500.2500 ####[facility] [address] [place], [address] Calcium Normal 7.6-11.0 [facility] Comment on above: Result Comment: Canc elled via OM: Order cancelled - Patient discharged Performed By: #### L 100.0100, L500.2500 ####[facility] [address] [place], [address] CL Normal 98-108 [facility] Comment on above: Result Comment: Canc elled via OM: Order cancelled - Patient discharged Performed By: #### L 100.0100, L500.2500 ####[facility] [address] [place], [address] CO2 Normal 21.0-32.0 [facility] Comment on above: Result Comment: Canc elled via OM: Order cancelled - Patient discharged Performed By: #### L 100.0100, L500.2500 ####[facility] [address] [place], [address] CREAT,SERUM Normal 0.70-1.20 [facility] Comment on above: Result Comment: Canc elled via OM: Order cancelled - Patient discharged Performed By: #### L 100.0100, L500.2500 ####[facility] [address] [place], [address] eGFR Normal >60 [facility] Comment on above: Result Comment: Canc elled via OM: Order cancelled - Patient discharged Performed By: #### L 100.0100, L500.2500 ####[facility] [address] [place], [address] GAP Normal 5-15 [facility] Comment on above: Result Comment: Canc elled via OM: Order cancelled - Patient discharged Performed By: #### L 100.0100, L500.2500 ####[facility] [address] [place], [address] GLU Normal 70-99 [facility] Comment on above: Result Comment: Canc elled via OM: Order cancelled - Patient discharged Performed By: #### L 100.0100, L500.2500 ####[facility] [address] [place], [address] Potassium Normal 3.3-5.1 [facility] Comment on above: Result Comment: Canc elled via OM: Order cancelled - Patient discharged Performed By: #### L 100.0100, L500.2500 ####[facility] [address] [place], [address] Basic Metabolic Profile (BMP) Normal 133-145 [facility] Comment on above: Result Comment: Canc elled via OM: Order cancelled - Patient discharged Performed By: #### L 100.0100, L500.2500 ####[facility] [address] [place], [address] CBC W/Diff, Automatedon 07-3 Absolute Neut Normal 2.0-7.7 [facility] Comment on above: Result Comment: Canc elled via OM: Order cancelled - Patient discharged Performed By: #### L 100.0100, L500.2500 ####[facility] [address] [place], [address] HCT Normal 37-47 [facility] Comment on above: Result Comment: Canc elled via OM: Order cancelled - Patient discharged Performed By: #### L 100.0100, L500.2500 ####[facility] [address] [place], [address] HGB Normal 12.0-15.0 [facility] Comment on above: Result Comment: Canc elled via OM: Order cancelled - Patient discharged Performed By: #### L 100.0100, L500.2500 ####[facility] [address] [place], [address] MCH Normal 27.0-32.0 [facility] Comment on above: Result Comment: Canc elled via OM: Order cancelled - Patient discharged Performed By: #### L 100.0100, L500.2500 ####[facility] [address] [place], [address] MCHC Normal 32-36 [facility] Comment on above: Result Comment: Canc elled via OM: Order cancelled - Patient discharged Performed By: #### L 100.0100, L500.2500 ####[facility] [address] [place], [address] MCV Normal 81-99 [facility] Comment on above: Result Comment: Canc elled via OM: Order cancelled - Patient discharged Performed By: #### L 100.0100, L500.2500 ####[facility] [address] [place], [address] NEUT% Normal 47-70 [facility] Comment on above: Result Comment: Canc elled via OM: Order cancelled - Patient discharged Performed By: #### L 100.0100, L500.2500 ####[facility] [address] [place], [address] PLT Normal 150-450 [facility] Comment on above: Result Comment: Canc elled via OM: Order cancelled - Patient discharged Performed By: #### L 100.0100, L500.2500 ####[facility] [address] [place], [address] RBC Normal 4.2-5.4 [facility] Comment on above: Result Comment: Canc elled via OM: Order cancelled - Patient discharged Performed By: #### L 100.0100, L500.2500 ####[facility] [address] [place], [address] RDW CV Normal 11.6-14.6 [facility] Comment on above: Result Comment: Canc elled via OM: Order cancelled - Patient discharged Performed By: #### L 100.0100, L500.2500 ####[facility] [address] [place], [address] RDW SD Normal 35.1-43.9 [facility] Comment on above: Result Comment: Canc elled via OM: Order cancelled - Patient discharged Performed By: #### L 100.0100, L500.2500 ####[facility] [address] [place], [address] WBC Normal 4.4-11.0 [facility] Comment on above: Result Comment: Canc elled via OM: Order cancelled - Patient discharged Performed By: #### L 100.0100, L500.2500 ####[facility] [address] [place], [address] Absolute lymphocyte countOrd ered By: Delia Mcqueen on 02-14-2025 Lymphocytes Auto (Unsp spec) [#/Vol] 1.07 10*3/uL 0.83-4.51 [facility] Absolute neutrophil countOrd ered By: Deliajenna Mcqueen on 02-14-2025 Neutrophils (Bld) [#/Vol] 2.5 10*3/uL 2.0-7.7 [facility] Anion gap in Serum or Plasma Ordered By: Delia Mcqueen on 02-14-2025 Anion gap [Moles/Vol] 7 mmol/L 5-[address] [facility] Automated lymphocyte count a s percentage of total leukocytesOrdered By: Delia Mcqueen on 02-14-2025 Lymphocytes/100 WBC Auto (Unsp spec) 25.1 % 19-41 [facility] BUN/creatinine ratioOrdered By: Delia Mcqueen on 02-14-2025 Urea nitrogen/Creatinine [Mass ratio] 6.3 mg/mg Low 10-20 [facility] Basic Metabolic Profile (BMP )on 02-14-2025 BUN/CRE 6.3 RATIO Low 10-20 [facility] Comment on above: Performed By: #### L 100.0100, L500.2500 ####[facility] [address] [place], [address] Calcium [Mass/Vol] 8.0 mg/dL Normal 7.6-11.0 [facility] Comment on above: Performed By: #### L 100.0100, L500.2500 ####[facility] [address] [place], [address] Chloride [Moles/Vol] 111 mmol/L High 98-108 [facility] Comment on above: Performed By: #### L 100.0100, L500.2500 ####[facility] [address] [place], [address] CO2 [Moles/Vol] 20.9 mmol/L Low 21.0-32.0 [facility] Comment on above: Performed By: #### L 100.0100, L500.2500 ####[facility] [address] [place], [address] Creatinine [Mass/Vol] 0.80 mg/dL Normal 0.70-1.[address] [facility] Comment on above: Performed By: #### L 100.0100, L500.2500 ####[facility] [address] [place], [address] ECRCL 56.32 ml/min Normal 50-250 [facility] Comment on above: Performed By: #### L 100.0100, L500.2500 ####[facility] [address] [place], [address] GAP 7 Normal 5-15 [facility] Comment on above: Performed By: #### L 100.0100, L500.2500 ####[facility] [address] [place], [address] GFR/1.73 sq M.predicted among non-blacks MDRD (S/P/Bld) [Vol rate/Area] 78 mL/min/{1.73_m2} Normal >60 [facility] Comment on above: Result Comment: mL/m in/1.73m2 CKD-EPI Creatinine Equation (2020) Performed By: #### L 100.0100, L500.2500 ####[facility] [address] [place], [address] Glucose [Mass/Vol] 92 mg/dL Normal 70-99 [facility] Comment on above: Performed By: #### L 100.0100, L500.2500 ####[facility] [address] [place], [address] Potassium [Moles/Vol] 3.9 mmol/L Normal 3.3-5.[address] [facility] Comment on above: Performed By: #### L 100.0100, L500.2500 ####[facility] [address] [place], [address] Sodium [Moles/Vol] 139 mmol/L Normal 133-145 [facility] Comment on above: Performed By: #### L 100.0100, L500.2500 ####[facility] [address] [place], [address] Urea nitrogen [Mass/Vol] 5 mg/dL Normal 4-19 [facility] Comment on above: Performed By: #### L 100.0100, L500.2500 ####[facility] [address] [place], [address] Basophil percentageOrdered B y: Delia Mcqueen on 02-14-2025 Basophils/100 WBC (Bld) 0.5 % 0-1 [facility] CBC W/Diff, Automatedon 01-18 0-2024 Absolute Lymph 1.07 X10 3/uL Normal 0.83-4.51 [facility] Comment on above: Performed By: #### L 100.0100, L500.2500 ####[facility] [address] [place], [address] Absolute Neut 2.5 X10 3/uL Normal 2.0-7.7 [facility] Comment on above: Performed By: #### L 100.0100, L500.2500 ####[facility] [address] [place], [address] Basophils/100 WBC (Bld) 0.5 % Normal 0-1 [facility] Comment on above: Performed By: #### L 100.0100, L500.2500 ####[facility] [address] [place], [address] Eosinophils/100 WBC (Bld) 0.7 % Normal 0-5 [facility] Comment on above: Performed By: #### L 100.0100, L500.2500 ####[facility] [address] [place], [address] Erythrocyte distribution width (RBC) [Ratio] 16.4 % High 11.6-14.6 [facility] Comment on above: Performed By: #### L 100.0100, L500.2500 ####[facility] [address] [place], [address] Hematocrit (Bld) [Volume fraction] 34.2 % Low 37-47 [facility] Comment on above: Performed By: #### L 100.0100, L500.2500 ####[facility] [address] [place], [address] Hemoglobin (Bld) [Mass/Vol] 10.7 g/dL Low 12.0-15.0 [facility] Comment on above: Performed By: #### L 100.0100, L500.2500 ####[facility] [address] [place], [address] IG% 0.500 Normal 0.0-0.9 [facility] Comment on above: Result Comment: IG% - Immature Granulocytes (promyelocytes, myelocytes andmetamyelocytes) > 1% indicates that a LEFT SHIFT is Present. Performed By: #### L 100.0100, L500.2500 ####[facility] [address] [place], [address] Lymphocytes/100 WBC (Bld) 25.1 % Normal 19-41 [facility] Comment on above: Performed By: #### L 100.0100, L500.2500 ####[facility] [address] [place], [address] MCH (RBC) [Entitic mass] 30.9 pg Normal 27.0-32.0 [facility] Comment on above: Performed By: #### L 100.0100, L500.2500 ####[facility] [address] [place], [address] MCHC (RBC) [Mass/Vol] 31.3 g/dL Low 32-[address] [facility] Comment on above: Performed By: #### L 100.0100, L500.2500 ####[facility] [address] [place], [address] MCV (RBC) [Entitic vol] 98.8 fL Normal 81-99 [facility] Comment on above: Performed By: #### L 100.0100, L500.2500 ####[facility] [address] [place], [address] Monocytes/100 WBC (Bld) 14.8 % High 0-10 [facility] Comment on above: Performed By: #### L 100.0100, L500.2500 ####[facility] [address] [place], [address] Neutrophils/100 WBC (Bld) 58.4 % Normal 47-70 [facility] Comment on above: Performed By: #### L 100.0100, L500.2500 ####[facility] [address] [place], [address] Nucleated RBC (Bld) [#/Vol] 0 10*3/uL Normal 0-5 [facility] Comment on above: Performed By: #### L 100.0100, L500.2500 ####[facility] [address] [place], [address] Platelet mean volume (Bld) [Entitic vol] 8.5 fL Normal 6.2-12.0 [facility] Comment on above: Performed By: #### L 100.0100, L500.2500 ####[facility] [address] [place], [address] Platelets (Bld) [#/Vol] 163 10*3/uL Normal 150-450 [facility] Comment on above: Performed By: #### L 100.0100, L500.2500 ####[facility] [address] [place], [address] RBC (Bld) [#/Vol] 3.46 10*6/uL Low 4.2-5.4 [facility] Comment on above: Performed By: #### L 100.0100, L500.2500 ####[facility] [address] [place], [address] RDW SD 59.4 fl High 35.1-43.9 [facility] Comment on above: Performed By: #### L 100.0100, L500.2500 ####[facility] [address] [place], [address] WBC (Bld) [#/Vol] 4.3 10*3/uL Low 4.4-11.0 [facility] Comment on above: Performed By: #### L 100.0100, L500.2500 ####[facility] [address] [place], [address] Carbon dioxide, total [Moles /volume] in Central venous bloodOrdered By: Delia Mcqueen on 02-14-2025 CO2 [Moles/Vol] 20.9 mmol/L Low 21.0-32.0 [facility] Chloride assayOrdered By: Na na Charisse on 02-14-2025 Chloride [Moles/Vol] 111 mmol/L High 98-108 [facility] Discharge Instructionon 01-18 Discharge Instruction Normal [facility] Eosinophil percentageOrdered By: Delia Mcqueen on 02-14-2025 Eosinophils/100 WBC (Bld) 0.7 % 0-5 [facility] Erythrocyte distribution wid th ratioOrdered By: Delia Mcqueen on 02-14-2025 Erythrocyte distribution width (RBC) [Ratio] 16.4 % High 11.6-14.6 [facility] Erythrocyte distribution wid th standard deviationOrdered By: Delia Mcqueen on 02-14-2025 Erythrocyte distribution width (RBC) [Ratio] 59.4 fl High 35.1-43.9 [facility] Glomerular filtration rate ( GFR) estimation/1.73 sq m using serum, plasma, or whole bOrdered By: Delia Mcqueen on 02-14-2025 GFR/1.73 sq M.predicted among non-blacks MDRD (S/P/Bld) [Vol rate/Area] 78 mL/min/{1.73_m2} >60 [facility] Comment on above: mL/min/1.73m2 CKD-EP I Creatinine Equation (2020) Hematocrit Auto (Bld) [Volum e fraction]Ordered By: Delia Mcqueen on 02-14-2025 Hematocrit (Bld) [Volume fraction] 34.2 % Low 37-47 [facility] Hemoglobin measurementOrdere d By: Delia Mcqueen 02-14-2025 Hemoglobin (Bld) [Mass/Vol] 10.7 g/dL Low 12.0-15.0 [facility] [facility] Immature granulocytes/100 WB C Auto (Bld)Ordered By: Deliajenna Mcqueen 02-14-2025 Immature granulocytes/100 WBC (Bld) 0.500 % 0.0-0.9 [facility] Comment on above: IG% - Immature Granu locytes (promyelocytes, myelocytes and metamyelocytes) > 1% indicates that a LEFT SHIFT is Present. MCV (mean corpuscular volume ) determinationOrdered By: Delia Mcqueen 02-14-2025 MCV (RBC) [Entitic vol] 98.8 fL 81-99 [facility] Mean corpuscular hemoglobin (MCH) determinationOrdered By: Deliajenna Mcqueen 02-14-2025 MCH (RBC) [Entitic mass] 30.9 pg 27.0-32.0 [facility] Mean corpuscular hemoglobin concentration (MCHC) determinationOrdered By: Deliajenna Mcqueen 02-14-2025 MCHC (RBC) [Mass/Vol] 31.3 g/dL Low 32-[address] [facility] Mean platelet volume determi nationOrdered By: Delia Mcqueen 02-14-2025 Platelet mean volume (Bld) [Entitic vol] 8.5 fL 6.2-12.0 [facility] Monocyte percentageOrdered B y: Delia Mcqueen on 02-14-2025 Monocytes/100 WBC (Bld) 14.8 % High 0-10 [facility] Neutrophil percentageOrdered By: Delia Mcqueen on 02-14-2025 Neutrophils/100 WBC (Bld) 58.4 % 47-70 [facility] Nucleated red blood cell per centageOrdered By: Delia Mcqueen on 02-14-2025 Nucleated RBC/100 WBC (Bld) [Ratio] 0 % 0-5 [facility] Platelet countOrdered By: Na na Charisse on 02-14-2025 Platelets (Bld) [#/Vol] 163 10*3/uL 150-450 [facility] Potassium measurement (mass/ volume)Ordered By: Delia Mcqueen on 02-14-2025 Potassium (Unsp spec) [Mass/Vol] 3.9 mmol/L 3.3-5.1 [facility] RBC Auto (Bld) [#/Vol]Ordere d By: Delia Mcqueen on 02-14-2025 RBC (Bld) [#/Vol] 3.46 10*6/uL Low 4.2-5.4 [facility] Serum creatinine measurement (mass/volume)Ordered By: Delia Mcqueen on 02-14-2025 Creatinine [Mass/Vol] 0.80 mg/dL 0.70-1.[address] [facility] Serum glucose measurement (m ass/volume)Ordered By: Delia Mcqueen on 02-14-2025 Glucose [Mass/Vol] 92 mg/dL 70-99 [facility] Serum or plasma calcium usman urement (mass/volume)Ordered By: Delia Mcqueen on 02-14-2025 Calcium [Mass/Vol] 8.0 mg/dL 7.6-11.0 [facility] Serum or plasma urea nitroge n measurement (mass/volume)Ordered By: Delia Mcqueen on 02-14-2025 Urea nitrogen [Mass/Vol] 5 mg/dL 4-19 [facility] Sodium levelOrdered By: Delia Mcqueen on 02-14-2025 Sodium [Moles/Vol] 139 mmol/L 133-145 [facility] Urine Cultureon 02-14-2025 URC Mixed Gram Pos Gram Neg Org [place] Count 11,000-25,000 [facility] Mixed contaminants. Submit a new specimen if indicated. Normal [facility] Comment on above: Performed By: #### M 100.2200 ####[facility] [address] [place], [address] White blood cell (WBC) count Ordered By: Delia Mcqueen on 02-14-2025 WBC (Bld) [#/Vol] 4.3 10*3/uL Low 4.4-11.0 [facility] Basic Metabolic Profile (BMP )on 02-13-2025 BUN/CRE 13.1 RATIO Normal 10-20 [facility] Comment on above: Performed By: #### L 500.2500, L100.0100 ####[facility] [address] [place], [address] Calcium [Mass/Vol] 7.9 mg/dL Normal 7.6-11.0 [facility] Comment on above: Performed By: #### L 500.2500, L100.0100 ####[facility] [address] [place], [address] Chloride [Moles/Vol] 116 mmol/L High 98-108 [facility] Comment on above: Performed By: #### L 500.2500, L100.0100 ####[facility] [address] [place], [address] CO2 [Moles/Vol] 17.7 mmol/L Low 21.0-32.0 [facility] Comment on above: Performed By: #### L 500.2500, L100.0100 ####[facility] [address] [place], [address] Creatinine [Mass/Vol] 0.73 mg/dL Normal 0.70-1.[address] [facility] Comment on above: Performed By: #### L 500.2500, L100.0100 ####[facility] [address] [place], [address] ECRCL 56.32 ml/min Normal 50-250 [facility] Comment on above: Performed By: #### L 500.2500, L100.0100 ####[facility] [address] [place], [address] GAP 7 Normal 5-15 [facility] Comment on above: Performed By: #### L 500.2500, L100.0100 ####[facility] [address] [place], [address] GFR/1.73 sq M.predicted among non-blacks MDRD (S/P/Bld) [Vol rate/Area] 86 mL/min/{1.73_m2} Normal >60 [facility] Comment on above: Result Comment: mL/m in/1.73m2 CKD-EPI Creatinine Equation (2020) Performed By: #### L 500.2500, L100.0100 ####[facility] [address] [place], [address] Glucose [Mass/Vol] 84 mg/dL Normal 70-99 [facility] Comment on above: Performed By: #### L 500.2500, L100.0100 ####[facility] [address] [place], [address] Potassium [Moles/Vol] 5.9 mmol/L High 3.3-5.[address] [facility] Comment on above: Performed By: #### L 500.2500, L100.0100 ####[facility] [address] [place], [address] Sodium [Moles/Vol] 140 mmol/L Normal 133-145 [facility] Comment on above: Performed By: #### L 500.2500, L100.0100 ####[facility] [address] [place], [address] Urea nitrogen [Mass/Vol] 10 mg/dL Normal 4-19 [facility] Comment on above: Performed By: #### L 500.2500, L100.0100 ####[facility] [address] [place], [address] CBC W/Diff, Automatedon 07-2 -2024 Absolute Lymph 1.02 X10 3/uL Normal 0.83-4.51 [facility] Comment on above: Performed By: #### L 500.2500, L100.0100 ####[facility] [address] [place], [address] Absolute Neut 4.1 X10 3/uL Normal 2.0-7.7 [facility] Comment on above: Performed By: #### L 500.2500, L100.0100 ####[facility] [address] [place], [address] Basophils/100 WBC (Bld) 0.5 % Normal 0-1 [facility] Comment on above: Performed By: #### L 500.2500, L100.0100 ####[facility] [address] [place], [address] Eosinophils/100 WBC (Bld) 0.3 % Normal 0-5 [facility] Comment on above: Performed By: #### L 500.2500, L100.0100 ####[facility] [address] [place], [address] Erythrocyte distribution width (RBC) [Ratio] 17.2 % High 11.6-14.6 [facility] Comment on above: Performed By: #### L 500.2500, L100.0100 ####[facility] [address] [place], [address] Hematocrit (Bld) [Volume fraction] 33.5 % Low 37-47 [facility] Comment on above: Performed By: #### L 500.2500, L100.0100 ####[facility] [address] [place], [address] Hemoglobin (Bld) [Mass/Vol] 10.2 g/dL Low 12.0-15.0 [facility] Comment on above: Performed By: #### L 500.2500, L100.0100 ####[facility] [address] [place], [address] IG% 0.500 Normal 0.0-0.9 [facility] Comment on above: Result Comment: IG% - Immature Granulocytes (promyelocytes, myelocytes andmetamyelocytes) > 1% indicates that a LEFT SHIFT is Present. Performed By: #### L 500.2500, L100.0100 ####[facility] [address] [place], [address] Lymphocytes/100 WBC (Bld) 17.6 % Low 19-41 [facility] Comment on above: Performed By: #### L 500.2500, L100.0100 ####[facility] [address] [place], [address] MCH (RBC) [Entitic mass] 30.4 pg Normal 27.0-32.0 [facility] Comment on above: Performed By: #### L 500.2500, L100.0100 ####[facility] [address] [place], [address] MCHC (RBC) [Mass/Vol] 30.4 g/dL Low 32-[address] [facility] Comment on above: Performed By: #### L 500.2500, L100.0100 ####[facility] [address] [place], [address] MCV (RBC) [Entitic vol] 100.0 fL High 81-99 [facility] Comment on above: Performed By: #### L 500.2500, L100.0100 ####[facility] [address] [place], [address] Monocytes/100 WBC (Bld) 10.3 % High 0-10 [facility] Comment on above: Performed By: #### L 500.2500, L100.0100 ####[facility] [address] [place], [address] Neutrophils/100 WBC (Bld) 70.8 % High 47-70 [facility] Comment on above: Performed By: #### L 500.2500, L100.0100 ####[facility] [address] [place], [address] Nucleated RBC (Bld) [#/Vol] 0 10*3/uL Normal 0-5 [facility] Comment on above: Performed By: #### L 500.2500, L100.0100 ####[facility] [address] [place], [address] Platelet mean volume (Bld) [Entitic vol] 9.0 fL Normal 6.2-12.0 [facility] Comment on above: Performed By: #### L 500.2500, L100.0100 ####[facility] [address] [place], [address] Platelets (Bld) [#/Vol] 180 10*3/uL Normal 150-450 [facility] Comment on above: Performed By: #### L 500.2500, L100.0100 ####[facility] [address] [place], [address] RBC (Bld) [#/Vol] 3.35 10*6/uL Low 4.2-5.4 [facility] Comment on above: Performed By: #### L 500.2500, L100.0100 ####[facility] [address] [place], [address] RDW SD 63.8 fl High 35.1-43.9 [facility] Comment on above: Performed By: #### L 500.2500, L100.0100 ####[facility] [address] [place], [address] WBC (Bld) [#/Vol] 5.8 10*3/uL Normal 4.4-11.0 [facility] Comment on above: Performed By: #### L 500.2500, L100.0100 ####[facility] [address] [place], [address] Abdomen Single View (Portabl e)on 02-12-2025 Abdomen Single View (Portable) Normal [facility] Basic Metabolic Profile (BMP )on 02-12-2025 BUN/CRE 15.5 RATIO Normal 10-20 [facility] Comment on above: Performed By: #### L 501.9520, L100.0100, L500.2500 ####[facility] [address] [place], [address] Calcium [Mass/Vol] 7.7 mg/dL Normal 7.6-11.0 [facility] Comment on above: Performed By: #### L 501.9520, L100.0100, L500.2500 ####[facility] [address] [place], [address] Chloride [Moles/Vol] 111 mmol/L High 98-108 [facility] Comment on above: Performed By: #### L 501.9520, L100.0100, L500.2500 ####[facility] [address] [place], [address] CO2 [Moles/Vol] 24.1 mmol/L Normal 21.0-32.0 [facility] Comment on above: Performed By: #### L 501.9520, L100.0100, L500.2500 ####[facility] [address] [place], [address] Creatinine [Mass/Vol] 0.87 mg/dL Normal 0.70-1.[address] [facility] Comment on above: Performed By: #### L 501.9520, L100.0100, L500.2500 ####[facility] [address] [place], [address] GAP 7 Normal 5-15 [facility] Comment on above: Performed By: #### L 501.9520, L100.0100, L500.2500 ####[facility] [address] [place], [address] GFR/1.73 sq M.predicted among non-blacks MDRD (S/P/Bld) [Vol rate/Area] 71 mL/min/{1.73_m2} Normal >60 [facility] Comment on above: Result Comment: mL/m in/1.73m2 CKD-EPI Creatinine Equation (2020) Performed By: #### L 501.9520, L100.0100, L500.2500 ####[facility] [address] [place], [address] Potassium [Moles/Vol] 4.9 mmol/L Normal 3.3-5.[address] [facility] Comment on above: Performed By: #### L 501.9520, L100.0100, L500.2500 ####[facility] [address] [place], [address] Sodium [Moles/Vol] 142 mmol/L Normal 133-145 [facility] Comment on above: Performed By: #### L 501.9520, L100.0100, L500.2500 ####[facility] [address] [place], [address] Glucose [Mass/Vol] 94 mg/dL Normal 70-99 [facility] Comment on above: Performed By: #### L 501.9520, L100.0100, L500.2500 ####[facility] [address] [place], [address] Urea nitrogen [Mass/Vol] 13 mg/dL Normal 4-19 [facility] Comment on above: Performed By: #### L 501.9520, L100.0100, L500.2500 ####[facility] [address] [place], [address] CBC W/Diff, Automatedon 07-2 8-2024 Absolute Lymph 1.01 X10 3/uL Normal 0.83-4.51 [facility] Comment on above: Performed By: #### L 501.9520, L100.0100, L500.2500 ####[facility] [address] [place], [address] Absolute Neut 4.4 X10 3/uL Normal 2.0-7.7 [facility] Comment on above: Performed By: #### L 501.9520, L100.0100, L500.2500 ####[facility] [address] [place], [address] Basophils/100 WBC (Bld) 0.5 % Normal 0-1 [facility] Comment on above: Performed By: #### L 501.9520, L100.0100, L500.2500 ####[facility] [address] [place], [address] Eosinophils/100 WBC (Bld) 2.8 % Normal 0-5 [facility] Comment on above: Performed By: #### L 501.9520, L100.0100, L500.2500 ####[facility] [address] [place], [address] Erythrocyte distribution width (RBC) [Ratio] 17.0 % High 11.6-14.6 [facility] Comment on above: Performed By: #### L 501.9520, L100.0100, L500.2500 ####[facility] [address] [place], [address] Hematocrit (Bld) [Volume fraction] 32.4 % Low 37-47 [facility] Comment on above: Performed By: #### L 501.9520, L100.0100, L500.2500 ####[facility] [address] [place], [address] Hemoglobin (Bld) [Mass/Vol] 10.4 g/dL Low 12.0-15.0 [facility] Comment on above: Performed By: #### L 501.9520, L100.0100, L500.2500 ####[facility] [address] [place], [address] IG% 0.500 Normal 0.0-0.9 [facility] Comment on above: Result Comment: IG% - Immature Granulocytes (promyelocytes, myelocytes andmetamyelocytes) > 1% indicates that a LEFT SHIFT is Present. Performed By: #### L 501.9520, L100.0100, L500.2500 ####[facility] [address] [place], [address] Lymphocytes/100 WBC (Bld) 15.8 % Low 19-41 [facility] Comment on above: Performed By: #### L 501.9520, L100.0100, L500.2500 ####[facility] [address] [place], [address] MCH (RBC) [Entitic mass] 31.1 pg Normal 27.0-32.0 [facility] Comment on above: Performed By: #### L 501.9520, L100.0100, L500.2500 ####[facility] [address] [place], [address] MCHC (RBC) [Mass/Vol] 32.1 g/dL Normal 32-[address] [facility] Comment on above: Performed By: #### L 501.9520, L100.0100, L500.2500 ####[facility] [address] [place], [address] MCV (RBC) [Entitic vol] 97.0 fL Normal 81-99 [facility] Comment on above: Performed By: #### L 501.9520, L100.0100, L500.2500 ####[facility] [address] [place], [address] Monocytes/100 WBC (Bld) 11.0 % High 0-10 [facility] Comment on above: Performed By: #### L 501.9520, L100.0100, L500.2500 ####[facility] [address] [place], [address] Neutrophils/100 WBC (Bld) 69.4 % Normal 47-70 [facility] Comment on above: Performed By: #### L 501.9520, L100.0100, L500.2500 ####[facility] [address] [place], [address] Nucleated RBC (Bld) [#/Vol] 0 10*3/uL Normal 0-5 [facility] Comment on above: Performed By: #### L 501.9520, L100.0100, L500.2500 ####[facility] [address] [place], [address] Platelet mean volume (Bld) [Entitic vol] 8.8 fL Normal 6.2-12.0 [facility] Comment on above: Performed By: #### L 501.9520, L100.0100, L500.2500 ####[facility] [address] [place], [address] Platelets (Bld) [#/Vol] 155 10*3/uL Normal 150-450 [facility] Comment on above: Performed By: #### L 501.9520, L100.0100, L500.2500 ####[facility] [address] [place], [address] RBC (Bld) [#/Vol] 3.34 10*6/uL Low 4.2-5.4 [facility] Comment on above: Performed By: #### L 501.9520, L100.0100, L500.2500 ####[facility] [address] [place], [address] RDW SD 60.9 fl High 35.1-43.9 [facility] Comment on above: Performed By: #### L 501.9520, L100.0100, L500.2500 ####[facility] [address] [place], [address] WBC (Bld) [#/Vol] 6.4 10*3/uL Normal 4.4-11.0 [facility] Comment on above: Performed By: #### L 501.9520, L100.0100, L500.2500 ####[facility] [address] [place], [address] Small Bowel Series Onlyon Small Bowel Series Only Normal [facility] TSH DL <= 0.005 mIU/L QnOrde red By: Ami Magdaleno on 02-12-2025 TSH Qn 0.632 uIU/mL 0.300-4.200 [facility] Thyroid Stim Hormone (TSH)on 02-12-2025 TSH 0.632 uIU/mL Normal 0.300-4.200 [facility] Comment on above: Performed By: #### L 501.9520, L100.0100, L500.2500 ####[facility] [address] [place], [address] Urine cultureOrdered By: Alexus Mcqueen on 02-12-2025 Bacteria identified Cx Nom (U) Mixed Gram Pos & Gram Neg Org Abnormal [facility] Abdomen/Pelvis W IV Cont ONL Yon 02-11-2025 Abdomen/Pelvis W IV Cont ONLY Normal [facility] Absolute lymphocyte countOrd ered By: Tay Dumont on 02-11-2025 Lymphocytes Auto (Unsp spec) [#/Vol] 0.90 10*3/uL 0.83-4.51 [facility] Absolute neutrophil countOrd ered By: Tay Dumont on 02-11-2025 Neutrophils (Bld) [#/Vol] 4.0 10*3/uL 2.0-7.7 [facility] Anion gap in Serum or Plasma Ordered By: Tay Dumont on 02-11-2025 Anion gap [Moles/Vol] 11 mmol/L 5-[address] [facility] Automated lymphocyte count a s percentage of total leukocytesOrdered By: aTy Dumont on 02-11-2025 Lymphocytes/100 WBC Auto (Unsp spec) 16.0 % Low 19-41 [facility] BUN/creatinine ratioOrdered By: Tay Dumont on 02-11-2025 Urea nitrogen/Creatinine [Mass ratio] 15.3 mg/mg 10-20 [facility] Basophil percentageOrdered B y: Tay Dumont on 02-11-2025 Basophils/100 WBC (Bld) 0.4 % 0-1 [facility] Bilirubin Test strip Ql (U)O rdered By: Tay Dumont on 02-11-2025 Bilirubin Ql (U) Negative Negative [facility] Bilirubin, totalOrdered By: Tay Dumont on 02-11-2025 Bilirubin [Mass/Vol] 0.31 mg/dL 0.00-1.30 [facility] CBC W/Diff, Automatedon 01-17 Absolute Lymph 0.90 X10 3/uL Normal 0.83-4.51 [facility] Comment on above: Performed By: #### L 100.0100, L501.2450, L500.4050 ####[facility] [address] [place], [address] Absolute Neut 4.0 X10 3/uL Normal 2.0-7.7 [facility] Comment on above: Performed By: #### L 100.0100, L501.2450, L500.4050 ####[facility] [address] [place], [address] Basophils/100 WBC (Bld) 0.4 % Normal 0-1 [facility] Comment on above: Performed By: #### L 100.0100, L501.2450, L500.4050 ####[facility] [address] [place], [address] Eosinophils/100 WBC (Bld) 0.0 % Normal 0-5 [facility] Comment on above: Performed By: #### L 100.0100, L501.2450, L500.4050 ####[facility] [address] [place], [address] Erythrocyte distribution width (RBC) [Ratio] 16.8 % High 11.6-14.6 [facility] Comment on above: Performed By: #### L 100.0100, L501.2450, L500.4050 ####[facility] [address] [place], [address] Hematocrit (Bld) [Volume fraction] 37.0 % Normal 37-47 [facility] Comment on above: Performed By: #### L 100.0100, L501.2450, L500.4050 ####[facility] [address] [place], [address] Hemoglobin (Bld) [Mass/Vol] 12.0 g/dL Normal 12.0-15.0 [facility] Comment on above: Performed By: #### L 100.0100, L501.2450, L500.4050 ####[facility] [address] [place], [address] IG% 0.400 Normal 0.0-0.9 [facility] Comment on above: Result Comment: IG% - Immature Granulocytes (promyelocytes, myelocytes andmetamyelocytes) > 1% indicates that a LEFT SHIFT is Present. Performed By: #### L 100.0100, L501.2450, L500.4050 ####[facility] [address] [place], [address] Lymphocytes/100 WBC (Bld) 16.0 % Low 19-41 [facility] Comment on above: Performed By: #### L 100.0100, L501.2450, L500.4050 ####[facility] [address] [place], [address] MCH (RBC) [Entitic mass] 30.8 pg Normal 27.0-32.0 [facility] Comment on above: Performed By: #### L 100.0100, L501.2450, L500.4050 ####[facility] [address] [place], [address] MCHC (RBC) [Mass/Vol] 32.4 g/dL Normal 32-[address] [facility] Comment on above: Performed By: #### L 100.0100, L501.2450, L500.4050 ####[facility] [address] [place], [address] MCV (RBC) [Entitic vol] 95.1 fL Normal 81-99 [facility] Comment on above: Performed By: #### L 100.0100, L501.2450, L500.4050 ####[facility] [address] [place], [address] Monocytes/100 WBC (Bld) 11.7 % High 0-10 [facility] Comment on above: Performed By: #### L 100.0100, L501.2450, L500.4050 ####[facility] [address] [place], [address] Neutrophils/100 WBC (Bld) 71.5 % High 47-70 [facility] Comment on above: Performed By: #### L 100.0100, L501.2450, L500.4050 ####[facility] [address] [place], [address] Nucleated RBC (Bld) [#/Vol] 0 10*3/uL Normal 0-5 [facility] Comment on above: Performed By: #### L 100.0100, L501.2450, L500.4050 ####[facility] [address] [place], [address] Platelet mean volume (Bld) [Entitic vol] 8.7 fL Normal 6.2-12.0 [facility] Comment on above: Performed By: #### L 100.0100, L501.2450, L500.4050 ####[facility] [address] [place], [address] Platelets (Bld) [#/Vol] 191 10*3/uL Normal 150-450 [facility] Comment on above: Performed By: #### L 100.0100, L501.2450, L500.4050 ####[facility] [address] [place], [address] RBC (Bld) [#/Vol] 3.89 10*6/uL Low 4.2-5.4 [facility] Comment on above: Performed By: #### L 100.0100, L501.2450, L500.4050 ####[facility] [address] [place], [address] RDW SD 58.0 fl High 35.1-43.9 [facility] Comment on above: Performed By: #### L 100.0100, L501.2450, L500.4050 ####[facility] [address] [place], [address] WBC (Bld) [#/Vol] 5.6 10*3/uL Normal 4.4-11.0 [facility] Comment on above: Performed By: #### L 100.0100, L501.2450, L500.4050 ####[facility] [address] [place], [address] Carbon dioxide, total [Moles /volume] in Central venous bloodOrdered By: Tay Dmuont on 02-11-2025 CO2 [Moles/Vol] 26.7 mmol/L 21.0-32.0 [facility] Chloride assayOrdered By: Dakota Dumont on 02-11-2025 Chloride [Moles/Vol] 100 mmol/L 98-108 [facility] Comprehensive Metabolic Prof ilon 02-11-2025 Albumin [Mass/Vol] 3.1 g/dL Low 3.4-4.8 [facility] Comment on above: Performed By: #### L 100.0100, L501.2450, L500.4050 ####[facility] [address] [place], [address] Albumin/Globulin [Mass ratio] 1.5 {ratio} Normal 0.9-2.4 [facility] Comment on above: Performed By: #### L 100.0100, L501.2450, L500.4050 ####[facility] [address] [place], [address] ALK PHOS 87 U/L Normal 35-104 [facility] Comment on above: Performed By: #### L 100.0100, L501.2450, L500.4050 ####[facility] [address] [place], [address] ALT [Catalytic activity/Vol] 21 U/L Normal <=34 [facility] Comment on above: Performed By: #### L 100.0100, L501.2450, L500.4050 ####[facility] [address] [place], [address] AST [Catalytic activity/Vol] 23 U/L Normal <=31 [facility] Comment on above: Performed By: #### L 100.0100, L501.2450, L500.4050 ####[facility] [address] [place], [address] Bilirubin [Mass/Vol] 0.31 mg/dL Normal 0.00-1.30 [facility] Comment on above: Performed By: #### L 100.0100, L501.2450, L500.4050 ####[facility] [address] [place], [address] BUN/CRE 15.3 RATIO Normal 10-20 [facility] Comment on above: Performed By: #### L 100.0100, L501.2450, L500.4050 ####[facility] [address] [place], [address] Calcium [Mass/Vol] 8.3 mg/dL Normal 7.6-11.0 [facility] Comment on above: Performed By: #### L 100.0100, L501.2450, L500.4050 ####[facility] [address] [place], [address] Chloride [Moles/Vol] 100 mmol/L Normal 98-108 [facility] Comment on above: Performed By: #### L 100.0100, L501.2450, L500.4050 ####[facility] [address] [place], [address] CO2 [Moles/Vol] 26.7 mmol/L Normal 21.0-32.0 [facility] Comment on above: Performed By: #### L 100.0100, L501.2450, L500.4050 ####[facility] [address] [place], [place], [address] Creatinine [Mass/Vol] 0.97 mg/dL Normal 0.70-1.[address] [facility] Comment on above: Performed By: #### L 100.0100, L501.2450, L500.4050 ####[facility] [address] [place], [address] ECRCL 46.45 ml/min Low 50-250 [facility] Comment on above: Performed By: #### L 100.0100, L501.2450, L500.4050 ####[facility] [address] [place], [address] GAP 11 Normal 5-15 [facility] Comment on above: Performed By: #### L 100.0100, L501.2450, L500.4050 ####[facility] [address] [place], [address] GFR/1.73 sq M.predicted among non-blacks MDRD (S/P/Bld) [Vol rate/Area] 62 mL/min/{1.73_m2} Normal >60 [facility] Comment on above: Result Comment: mL/m in/1.73m2 CKD-EPI Creatinine Equation (2020) Performed By: #### L 100.0100, L501.2450, L500.4050 ####[facility] [address] [place], [address] Globulin (S) [Mass/Vol] 2.1 g/dL Low 2.2-4.2 [facility] Comment on above: Performed By: #### L 100.0100, L501.2450, L500.4050 ####[facility] [address] [place], [address] Glucose [Mass/Vol] 105 mg/dL High 70-99 [facility] Comment on above: Performed By: #### L 100.0100, L501.2450, L500.4050 ####[facility] [address] [place], [address] Potassium [Moles/Vol] 3.1 mmol/L Low 3.3-5.[address] [facility] Comment on above: Performed By: #### L 100.0100, L501.2450, L500.4050 ####[facility] [address] [place], [address] Sodium [Moles/Vol] 138 mmol/L Normal 133-145 [facility] Comment on above: Performed By: #### L 100.0100, L501.2450, L500.4050 ####[facility] [address] [place], [address] T PROT 5.2 g/dL Low 5.9-8.4 [facility] Comment on above: Performed By: #### L 100.0100, L501.2450, L500.4050 ####[facility] [address] [place], [address] Urea nitrogen [Mass/Vol] 15 mg/dL Normal 4-19 [facility] Comment on above: Performed By: #### L 100.0100, L501.2450, L500.4050 ####[facility] [address] [place], [address] Consultation - Surgicalon Consultation - Surgical Normal [facility] Emergency Department Summary on 02-11-2025 Emergency Department Summary Normal [facility] Eosinophil percentageOrdered By: Tay Dumont on 02-11-2025 Eosinophils/100 WBC (Bld) 0.0 % 0-5 [facility] Erythrocyte distribution wid th ratioOrdered By: Tay Dumont on 02-11-2025 Erythrocyte distribution width (RBC) [Ratio] 16.8 % High 11.6-14.6 [facility] Erythrocyte distribution wid th standard deviationOrdered By: Tay Dumont on 02-11-2025 Erythrocyte distribution width (RBC) [Ratio] 58.0 fl High 35.1-43.9 [facility] Glomerular filtration rate ( GFR) estimation/1.73 sq m using serum, plasma, or whole bOrdered By: Tay Dumont on 02-11-2025 GFR/1.73 sq M.predicted among non-blacks MDRD (S/P/Bld) [Vol rate/Area] 62 mL/min/{1.73_m2} >60 [facility] Comment on above: mL/min/1.73m2 CKD-EP I Creatinine Equation (2020) H AND P Exam - Hospitaliston 02-11-2025 H&P Exam - Hospitalist Normal [facility] Hematocrit Auto (Bld) [Volum e fraction]Ordered By: Tay Dumont on 02-11-2025 Hematocrit (Bld) [Volume fraction] 37.0 % 37-47 [facility] Hemoglobin measurementOrdere d By: Tay Dumont on 02-11-2025 Hemoglobin (Bld) [Mass/Vol] 12.0 g/dL 12.0-15.0 [facility] Immature granulocytes/100 WB C Auto (Bld)Ordered By: Tay Dumont on 02-11-2025 Immature granulocytes/100 WBC (Bld) 0.400 % 0.0-0.9 [facility] Comment on above: IG% - Immature Granu locytes (promyelocytes, myelocytes and metamyelocytes) > 1% indicates that a LEFT SHIFT is Present. Ketones Test strip Ql (U)Ord ered By: Tay Dumont on 02-11-2025 Ketones Ql (U) 5 mg/dl High Negative [facility] Laboratory - Chemistry and C hemistry - challengeOrdered By: Tay Dumont on 02-11-2025 AST [Catalytic activity/Vol] 23 U/L <32 [facility] Lipaseon 02-11-2025 Lipase [Catalytic activity/Vol] 10 U/L Low 13-75 [facility] Comment on above: Result Comment: Moira hinds note:LIPASE revised reference range effective 22.New Lipase methodology. Expected to produce lower valuesthan the previous assay method.NEW Reference Range: 13 - 75 U/L Performed By: #### L 100.0100, L501.2450, L500.4050 ####[facility] [address] [place], [place], [id number] Lipase measurementOrdered By : Tay Dumont on 02-11-2025 Lipase [Catalytic activity/Vol] 10 U/L Low 13-75 [facility] Comment on above: Please note:LIPASE r evised reference range effective 22. New Lipase methodology. Expected to produce lower values than the previous assay method. NEW Reference Range: 13 - 75 U/L MCV (mean corpuscular volume ) determinationOrdered By: Tay Dumont on 02-11-2025 MCV (RBC) [Entitic vol] 95.1 fL 81-99 [facility] Magnesiumon 02-11-2025 Magnesium [Mass/Vol] 2.2 mg/dL Normal 1.5-2.2 [facility] Comment on above: Performed By: #### L 501.5200 ####[facility] [address] [place], [address] Magnesium measurement (mass/ volume)Ordered By: Tay Dumont on 02-11-2025 Magnesium (Unsp spec) [Mass/Vol] 2.2 mg/dL 1.5-2.2 [facility] Mean corpuscular hemoglobin (MCH) determinationOrdered By: Tay Dumont on 02-11-2025 MCH (RBC) [Entitic mass] 30.8 pg 27.0-32.0 [facility] Mean corpuscular hemoglobin concentration (MCHC) determinationOrdered By: Tay Dumont on 02-11-2025 MCHC (RBC) [Mass/Vol] 32.4 g/dL 32-[address] [facility] Mean platelet volume determi nationOrdered By: Tay Dumont on 02-11-2025 Platelet mean volume (Bld) [Entitic vol] 8.7 fL 6.2-12.0 [facility] Microscopic analysis of urin e for red blood cells (RBC)Ordered By: Tay Dumont on 02-11-2025 Microscopic analysis of urine for red blood cells (RBC) 0 SEEN /hpf 0-5 [facility] Monocyte percentageOrdered B y: Tay Dumont on 02-11-2025 Monocytes/100 WBC (Bld) 11.7 % High 0-10 [facility] Mucus LM Ql (Urine sed)Order ed By: Tay Dumont on 02-11-2025 Mucus Ql (Urine sed) 1+ /hpf [facility] Neutrophil percentageOrdered By: Tay Dumont on 02-11-2025 Neutrophils/100 WBC (Bld) 71.5 % High 47-70 [facility] Nitrite Test strip Ql (U)Ord ered By: Tay Dumont on 02-11-2025 Nitrite Ql (U) Negative Negative [facility] No Panel InformationOrdered By: Tay Dumont on 02-11-2025 23 U/L <32 [facility] Nucleated red blood cell per centageOrdered By: Tay Dumont on 02-11-2025 Nucleated RBC/100 WBC (Bld) [Ratio] 0 % 0-5 [facility] Platelet countOrdered By: Dakota Dumont on 02-11-2025 Platelets (Bld) [#/Vol] 191 10*3/uL 150-450 [facility] Potassium measurement (mass/ volume)Ordered By: Tay Dumont on 02-11-2025 Potassium (Unsp spec) [Mass/Vol] 3.1 mmol/L Low 3.3-5.1 [facility] Protein Test strip Ql (U)Ord ered By: Tay Dumont on 02-11-2025 Protein Ql (U) 30 mg/dl High Negative [facility] RBC Auto (Bld) [#/Vol]Ordere d By: Tay Dumont on 02-11-2025 RBC (Bld) [#/Vol] 3.89 10*6/uL Low 4.2-5.4 [facility] Serum creatinine measurement (mass/volume)Ordered By: Tay Dumont on 02-11-2025 Creatinine [Mass/Vol] 0.97 mg/dL 0.70-1.[address] [facility] Serum globulin measurementOr dered By: Tay Dumont on 02-11-2025 Globulin (S) [Mass/Vol] 2.1 g/dL Low 2.2-4.2 [facility] Serum glucose measurement (m ass/volume)Ordered By: Tay Dumont on 02-11-2025 Glucose [Mass/Vol] 105 mg/dL High 70-99 [facility] Serum or plasma alanine vicente otransferase (ALT) measurementOrdered By: Tay Dumont on 02-11-2025 ALT [Catalytic activity/Vol] 21 U/L <35 [facility] Serum or plasma albumin usman urement (mass/volume)Ordered By: Tay Dumont on 02-11-2025 Albumin [Mass/Vol] 3.1 g/dL Low 3.4-4.8 [facility] Serum or plasma albumin/glob ulin mass ratioOrdered By: Tay Dumont on 02-11-2025 Albumin/Globulin [Mass ratio] 1.5 {ratio} 0.9-2.4 [facility] Serum or plasma alkaline marcela sphatase measurementOrdered By: Tay Dumont on 02-11-2025 ALP [Catalytic activity/Vol] 87 U/L 35-104 [facility] Serum or plasma calcium usman urement (mass/volume)Ordered By: Tay Dumont on 02-11-2025 Calcium [Mass/Vol] 8.3 mg/dL 7.6-11.0 [facility] Serum or plasma urea nitroge n measurement (mass/volume)Ordered By: Tay Dumont on 02-11-2025 Urea nitrogen [Mass/Vol] 15 mg/dL 4-19 [facility] Sodium levelOrdered By: Tay Dumont on 02-11-2025 Sodium [Moles/Vol] 138 mmol/L 133-145 [facility] Squamous epithelial cells de tection in urine sediment by light microscopyOrdered By: Tay Dumont on 02-11-2025 Epithelial cells.squamous LM Ql (Urine sed) 0 SEEN /hpf 5-10 [facility] Total proteinOrdered By: Loni Dumont on 02-11-2025 Protein [Mass/Vol] 5.2 g/dL Low 5.9-8.4 [facility] Urinalysis, Completeon 02-11 BACTERIA 2+ /hpf Normal None Seen [facility] Comment on above: Order Comment: CLEAN CATCH Performed By: #### L 400.0001 ####[facility] [address] [place], [place], [id number] Mucus Ql (Urine sed) 1+ /hpf Normal [facility] Comment on above: Order Comment: CLEAN CATCH Performed By: #### L 400.0001 ####[facility] [address] [place], [place], [address] WBC 0-5 SEEN Normal 0-5 [facility] Comment on above: Order Comment: CLEAN CATCH Performed By: #### L 400.0001 ####[facility] [address] [place], [address] EPI,SQUAMOUS 0 SEEN Normal 5-10 [facility] Comment on above: Order Comment: CLEAN CATCH Performed By: #### L 400.0001 ####[facility] [address] [place], [address] RBC 0 SEEN Normal 0-5 [facility] Comment on above: Order Comment: CLEAN CATCH Performed By: #### L 400.0001 ####[facility] [address] [place], [address] Urine clarityOrdered By: Loni Dumont on 02-11-2025 Clarity (U) Clear Clear [facility] Urine color determinationOrd ered By: Tay Dumont on 02-11-2025 Color (U) Yellow Yellow [facility] Urine glucose detectionOrder ed By: Tay Dumont on 02-11-2025 Glucose Ql (U) Normal mg/dl Normal [facility] Urine leukocyte esterase det ection by dipstickOrdered By: Tay Dumont on 02-11-2025 Leukocyte esterase Test strip Ql (U) 25 /ul High Negative [facility] Urine pHOrdered By: Tay moreno on 02-11-2025 pH (U) 7.0 [pH] 5.0 - 8.0 [facility] Urine sediment bacteria coun t by microscopy (number/high power field)Ordered By: Tay Dumont on 02-11-2025 Bacteria LM.HPF (Urine sed) [#/Area] 2 /[HPF] None Seen [facility] Urine specific gravity measu rementOrdered By: Tay Dumont on 02-11-2025 Specific gravity (U) [Rel density] 1.010 1.002-1.030 [facility] Urine urobilinogen measureme ntOrdered By: Tay Dumont on 02-11-2025 Urobilinogen Ql (U) Normal mg/dl Normal [facility] White blood cell (WBC) count Ordered By: Tay Dumont on 02-11-2025 WBC (Bld) [#/Vol] 5.6 10*3/uL 4.4-11.0 [facility] White blood cell countOrdere d By: Tay Dumont on 02-11-2025 White blood cell count 0-5 SEEN /hpf 0-5 [facility] 12 Lead EKGon 01-28-2025 12 Lead EKG Normal [facility] Abdomen/Pelvis W IV Cont ONL Yon 01-28-2025 Abdomen/Pelvis W IV Cont ONLY Normal [facility] Absolute lymphocyte countOrd ered By: Bernarda Win on 01-28-2025 Lymphocytes Auto (Unsp spec) [#/Vol] 1.31 10*3/uL 0.83-4.51 [facility] Absolute neutrophil countOrd ered By: Bernarda Win on 01-28-2025 Neutrophils (Bld) [#/Vol] 3.1 10*3/uL 2.0-7.7 [facility] Anion gap in Serum or Plasma Ordered By: Bernarda Win on 01-28-2025 Anion gap [Moles/Vol] 12 mmol/L 5-[address] [facility] Automated lymphocyte count a s percentage of total leukocytesOrdered By: Bernarda Win on 01-28-2025 Lymphocytes/100 WBC Auto (Unsp spec) 24.7 % 19-41 [facility] BUN/creatinine ratioOrdered By: Bernarda Win on 01-28-2025 Urea nitrogen/Creatinine [Mass ratio] 13.3 mg/mg 10-20 [facility] Basophil percentageOrdered B y: Bernarda Win on 01-28-2025 Basophils/100 WBC (Bld) 0.6 % 0-1 [facility] Bilirubin Test strip Ql (U)O rdered By: Bernarda Win on 01-28-2025 Bilirubin Ql (U) Negative Negative [facility] Bilirubin, totalOrdered By: Bernarda Win on 01-28-2025 Bilirubin [Mass/Vol] 0.19 mg/dL 0.00-1.30 [facility] Blood manual differential co mment interpretation (narrative result)Ordered By: Bernarda Win on 01-28-2025 Manual differential comment Luiz (Bld) [Interp] SCANNED [facility] CBC W/Diff, Automatedon 01-16 Anisocytosis Ql (Bld) 2+ Normal [facility] Comment on above: Performed By: #### L 500.4050, L501.4021, L501.2450, L100.0100 ####[facility] [address] [place], [address] MICROCYTIC 1+ Normal [facility] Comment on above: Performed By: #### L 500.4050, L501.4021, L501.2450, L100.0100 ####[facility] [address] [place], [address] OVALOCYTE 1+ Normal [facility] Comment on above: Performed By: #### L 500.4050, L501.4021, L501.2450, L100.0100 ####[facility] [address] [place], [address] HYPOCHROMASIA RARE Normal [facility] Comment on above: Performed By: #### L 500.4050, L501.4021, L501.2450, L100.0100 ####[facility] [address] [place], [address] SMEAR COMMENT SCANNED Normal [facility] Comment on above: Performed By: #### L 500.4050, L501.4021, L501.2450, L100.0100 ####[facility] [address] [place], [address] CTA Chest W/WO Contraston CTA Chest W/WO Contrast Normal [facility] Carbon dioxide, total [Moles /volume] in Central venous bloodOrdered By: Bernarda Win on 01-28-2025 CO2 [Moles/Vol] 26.1 mmol/L 21.0-32.0 [facility] Chloride assayOrdered By: Dalila Win on 01-28-2025 Chloride [Moles/Vol] 100 mmol/L 98-108 [facility] Comprehensive Metabolic Prof ilon 01-28-2025 Albumin [Mass/Vol] 3.6 g/dL Normal 3.4-4.8 [facility] Comment on above: Performed By: #### L 500.4050, L501.4021, L501.2450, L100.0100 ####[facility] [address] [place], [address] Albumin/Globulin [Mass ratio] 1.6 {ratio} Normal 0.9-2.4 [facility] Comment on above: Performed By: #### L 500.4050, L501.4021, L501.2450, L100.0100 ####[facility] [address] [place], [address] ALK PHOS 83 U/L Normal 35-104 [facility] Comment on above: Performed By: #### L 500.4050, L501.4021, L501.2450, L100.0100 ####[facility] [address] [place], [address] ALT [Catalytic activity/Vol] 23 U/L Normal <=34 [facility] Comment on above: Performed By: #### L 500.4050, L501.4021, L501.2450, L100.0100 ####[facility] [address] [place], [address] AST [Catalytic activity/Vol] 22 U/L Normal <=31 [facility] Comment on above: Performed By: #### L 500.4050, L501.4021, L501.2450, L100.0100 ####[facility] [address] [place], [address] Bilirubin [Mass/Vol] 0.19 mg/dL Normal 0.00-1.30 [facility] Comment on above: Performed By: #### L 500.4050, L501.4021, L501.2450, L100.0100 ####[facility] [address] [place], [address] BUN/CRE 13.3 RATIO Normal 10-20 [facility] Comment on above: Performed By: #### L 500.4050, L501.4021, L501.2450, L100.0100 ####[facility] [address] [place], [address] Calcium [Mass/Vol] 8.8 mg/dL Normal 7.6-11.0 [facility] Comment on above: Performed By: #### L 500.4050, L501.4021, L501.2450, L100.0100 ####[facility] [address] [place], [address] Chloride [Moles/Vol] 100 mmol/L Normal 98-108 [facility] Comment on above: Performed By: #### L 500.4050, L501.4021, L501.2450, L100.0100 ####[facility] [address] [place], [address] CO2 [Moles/Vol] 26.1 mmol/L Normal 21.0-32.0 [facility] Comment on above: Performed By: #### L 500.4050, L501.4021, L501.2450, L100.0100 ####[facility] [address] [place], [address] Creatinine [Mass/Vol] 0.83 mg/dL Normal 0.70-1.[address] [facility] Comment on above: Performed By: #### L 500.4050, L501.4021, L501.2450, L100.0100 ####[facility] [address] [place], [address] ECRCL 56.95 ml/min Normal 50-250 [facility] Comment on above: Performed By: #### L 500.4050, L501.4021, L501.2450, L100.0100 ####[facility] [address] [place], [address] GAP 12 Normal 5-15 [facility] Comment on above: Performed By: #### L 500.4050, L501.4021, L501.2450, L100.0100 ####[facility] [address] [place], [address] GFR/1.73 sq M.predicted among non-blacks MDRD (S/P/Bld) [Vol rate/Area] 74 mL/min/{1.73_m2} Normal >60 [facility] Comment on above: Result Comment: mL/m in/1.73m2 CKD-EPI Creatinine Equation (2020) Performed By: #### L 500.4050, L501.4021, L501.2450, L100.0100 ####[facility] [address] [place], [address] Globulin (S) [Mass/Vol] 2.3 g/dL Normal 2.2-4.2 [facility] Comment on above: Performed By: #### L 500.4050, L501.4021, L501.2450, L100.0100 ####[facility] [address] [place], [address] Glucose [Mass/Vol] 111 mg/dL High 70-99 [facility] Comment on above: Performed By: #### L 500.4050, L501.4021, L501.2450, L100.0100 ####[facility] [address] [place], [address] Potassium [Moles/Vol] 3.5 mmol/L Normal 3.3-5.[address] [facility] Comment on above: Performed By: #### L 500.4050, L501.4021, L501.2450, L100.0100 ####[facility] [address] [place], [address] Sodium [Moles/Vol] 137 mmol/L Normal 133-145 [facility] Comment on above: Performed By: #### L 500.4050, L501.4021, L501.2450, L100.0100 ####[facility] [address] [place], [address] T PROT 5.9 g/dL Normal 5.9-8.4 [facility] Comment on above: Performed By: #### L 500.4050, L501.4021, L501.2450, L100.0100 ####[facility] [address] [place], [address] Urea nitrogen [Mass/Vol] 11 mg/dL Normal 4-19 [facility] Comment on above: Performed By: #### L 500.4050, L501.4021, L501.2450, L100.0100 ####[facility] [address] [place], [address] Emergency Department Summary on 01-28-2025 Emergency Department Summary Normal [facility] Eosinophil percentageOrdered By: Bernarda Win on 01-28-2025 Eosinophils/100 WBC (Bld) 0.0 % 0-5 [facility] Erythrocyte distribution wid th ratioOrdered By: Bernarda Win on 01-28-2025 Erythrocyte distribution width (RBC) [Ratio] 21.9 % High 11.6-14.6 [facility] Erythrocyte distribution wid th standard deviationOrdered By: Bernarda Win on 01-28-2025 Erythrocyte distribution width (RBC) [Ratio] 76.0 fl High 35.1-43.9 [facility] Glomerular filtration rate ( GFR) estimation/1.73 sq m using serum, plasma, or whole bOrdered By: Bernarda Win on 01-28-2025 GFR/1.73 sq M.predicted among non-blacks MDRD (S/P/Bld) [Vol rate/Area] 74 mL/min/{1.73_m2} >60 [facility] Comment on above: mL/min/1.73m2 CKD-EP I Creatinine Equation (2020) Hematocrit Auto (Bld) [Volum e fraction]Ordered By: Bernarda Win on 01-28-2025 Hematocrit (Bld) [Volume fraction] 31.2 % Low 37-47 [facility] Hemoglobin measurementOrdere d By: Bernarda Win on 01-28-2025 Hemoglobin (Bld) [Mass/Vol] 10.2 g/dL Low 12.0-15.0 [facility] Hypochromatic red blood cell detectionOrdered By: Bernarda Win on 01-28-2025 Hypochromia Ql (Bld) RARE [facility] Immature granulocytes/100 WB C Auto (Bld)Ordered By: Bernarda Win on 01-28-2025 Immature granulocytes/100 WBC (Bld) 0.400 % 0.0-0.9 [facility] Comment on above: IG% - Immature Granu locytes (promyelocytes, myelocytes and metamyelocytes) > 1% indicates that a LEFT SHIFT is Present. Ketones Test strip Ql (U)Ord ered By: Bernarda Win on 01-28-2025 Ketones Ql (U) Negative Negative [facility] L499.0042on 01-28-2025 Trop T High Sen 16 ng/L High <=14 [facility] Comment on above: Performed By: #### L 499.0042 ####[facility] [address] [place], [address] L501.4021on 01-28-2025 Trop T High Sen 13 ng/L Normal <=14 [facility] Comment on above: Performed By: #### L 500.4050, L501.4021, L501.2450, L100.0100 ####[facility] [address] [place], [address] L503.7505on 01-28-2025 Natriuretic peptide B (Bld) [Mass/Vol] 167 pg/mL Normal <=900 [facility] Comment on above: Result Comment: Hear t Failure Unlikely: < 300 pg/mLHeart Failure Likely< 50 Years: > 450 pg/mL50-75 Years: > 900 pg/mL>75 Years: > 1800 pg/mL Performed By: #### L 503.7505 ####[facility] [address] [place], [place], [address] Laboratory - Chemistry and C hemistry - challengeOrdered By: Bernarda Win on 01-28-2025 AST [Catalytic activity/Vol] 22 U/L <32 [facility] Laboratory - Hematology and Cell countsOrdered By: Bernarda Win on 01-28-2025 Anisocytosis Ql (Bld) 2+ [facility] Lipaseon 01-28-2025 Lipase [Catalytic activity/Vol] 10 U/L Low 75 [facility] Comment on above: Result Comment: Moira hinds note:LIPASE revised reference range effective 22.New Lipase methodology. Expected to produce lower valuesthan the previous assay method.NEW Reference Range: 13 - 75 U/L Performed By: #### L 500.4050, L501.4021, L501.2450, L100.0100 ####[facility] [address] [place], [place], [address] Lipase measurementOrdered By : Bernarda Win on 01-28-2025 Lipase [Catalytic activity/Vol] 10 U/L Low - [facility] Comment on above: Please note:LIPASE r evised reference range effective 22. New Lipase methodology. Expected to produce lower values than the previous assay method. NEW Reference Range: 13 - 75 U/L MCV (mean corpuscular volume ) determinationOrdered By: Bernarda Win on 01-28-2025 MCV (RBC) [Entitic vol] 94.5 fL 81-99 [facility] Mean corpuscular hemoglobin (MCH) determinationOrdered By: Bernarda Win on 01-28-2025 MCH (RBC) [Entitic mass] 30.9 pg 27.0-32.0 [facility] Mean corpuscular hemoglobin concentration (MCHC) determinationOrdered By: Bernarda Win on 01-28-2025 MCHC (RBC) [Mass/Vol] 32.7 g/dL 32-[address] [facility] Mean platelet volume determi nationOrdered By: Bernarda Win on 01-28-2025 Platelet mean volume (Bld) [Entitic vol] 8.6 fL 6.2-12.0 [facility] Microscopic analysis of urin e for red blood cells (RBC)Ordered By: Bernarda Win on 01-28-2025 Microscopic analysis of urine for red blood cells (RBC) 0-5 SEEN /hpf 0-5 [facility] Monocyte percentageOrdered B y: Bernarda Win on 01-28-2025 Monocytes/100 WBC (Bld) 16.2 % High 0-10 [facility] Mucus LM Ql (Urine sed)Order ed By: Bernarda Win on 01-28-2025 Mucus Ql (Urine sed) 0 SEEN /hpf [facility] Natriuretic peptide.B prohor mikala N-Terminal [Mass/volume] in Serum or PlasmaOrdered By: Bernarda Win on 01-28-2025 Natriuretic peptide.B prohormone N-Terminal [Mass/Vol] 167 pg/mL <900 [facility] Comment on above: Heart Failure Unlike ly: < 300 pg/mLHeart Failure Likely< 50 Years: > 450 pg/mL50-75 Years: > 900 pg/mL>75 Years: > 1800 pg/mL Neutrophil percentageOrdered By: Bernarda Win on 01-28-2025 Neutrophils/100 WBC (Bld) 58.1 % 47-70 [facility] Nitrite Test strip Ql (U)Ord ered By: Bernarda Win on 01-28-2025 Nitrite Ql (U) Negative Negative [facility] No Panel InformationOrdered By: Bernarda Win on 01-28-2025 2+ [facility] 22 U/L <32 [facility] Nucleated red blood cell per centageOrdered By: Bernarda Win on 01-28-2025 Nucleated RBC/100 WBC (Bld) [Ratio] 0 % 0-5 [facility] Ovalocyte detectionOrdered B y: Bernarda Win on 01-28-2025 Ovalocytes LM Ql (Bld) 1+ [facility] Platelet countOrdered By: Dalila Win on 01-28-2025 Platelets (Bld) [#/Vol] 439 10*3/uL 150-450 [facility] Potassium measurement (mass/ volume)Ordered By: Bernarda Win on 01-28-2025 Potassium (Unsp spec) [Mass/Vol] 3.5 mmol/L 3.3-5.1 [facility] Protein Test strip Ql (U)Ord ered By: Bernarda Win on 01-28-2025 Protein Ql (U) 15 mg/dl High Negative [facility] RBC Auto (Bld) [#/Vol]Ordere d By: Bernarda Win on 01-28-2025 RBC (Bld) [#/Vol] 3.30 10*6/uL Low 4.2-5.4 [facility] Serum creatinine measurement (mass/volume)Ordered By: Bernarda Win on 01-28-2025 Creatinine [Mass/Vol] 0.83 mg/dL 0.70-1.[address] [facility] Serum globulin measurementOr dered By: Bernarda Win on 01-28-2025 Globulin (S) [Mass/Vol] 2.3 g/dL 2.2-4.2 [facility] Serum glucose measurement (m ass/volume)Ordered By: Bernarda Win on 01-28-2025 Glucose [Mass/Vol] 111 mg/dL High 70-99 [facility] Serum or plasma alanine vicente otransferase (ALT) measurementOrdered By: Benrarda Win on 01-28-2025 ALT [Catalytic activity/Vol] 23 U/L <35 [facility] Serum or plasma albumin usman urement (mass/volume)Ordered By: Bernarda Win on 01-28-2025 Albumin [Mass/Vol] 3.6 g/dL 3.4-4.8 [facility] Serum or plasma albumin/glob ulin mass ratioOrdered By: Bernarda Win on 01-28-2025 Albumin/Globulin [Mass ratio] 1.6 {ratio} 0.9-2.4 [facility] Serum or plasma alkaline marcela sphatase measurementOrdered By: Bernarda Win on 01-28-2025 ALP [Catalytic activity/Vol] 83 U/L 35-104 [facility] Serum or plasma calcium usman urement (mass/volume)Ordered By: Bernarda Win on 01-28-2025 Calcium [Mass/Vol] 8.8 mg/dL 7.6-11.0 [facility] Serum or plasma urea nitroge n measurement (mass/volume)Ordered By: Bernarda Win on 01-28-2025 Urea nitrogen [Mass/Vol] 11 mg/dL 4-19 [facility] Sodium levelOrdered By: David Win on 01-28-2025 Sodium [Moles/Vol] 137 mmol/L 133-145 [facility] Squamous epithelial cells de tection in urine sediment by light microscopyOrdered By: Bernarda Win on 01-28-2025 Epithelial cells.squamous LM Ql (Urine sed) 0-5 SEEN /hpf 5-10 [facility] Total proteinOrdered By: Sanjeev Win on 01-28-2025 Protein [Mass/Vol] 5.9 g/dL 5.9-8.4 [facility] Troponin T.cardiac [Mass/vol ume] in Serum or Plasma by High sensitivity methodOrdered By: Bernarda Win on 01-28-2025 Troponin T.cardiac High sensitivity method [Mass/Vol] 16 ng/L High <14 [facility] Troponin T.cardiac High sensitivity method [Mass/Vol] 13 ng/L <14 [facility] Comment on above: Delta: 17 on 5-1440 Urinalysis, Completeon 01-28 EPI,SQUAMOUS 0-5 SEEN Normal 5-10 [facility] Comment on above: Order Comment: CLEAN CATCH Performed By: #### L 400.0001 ####[facility] [address] [place], [address] RBC 0-5 SEEN Normal 0-5 [facility] Comment on above: Order Comment: CLEAN CATCH Performed By: #### L 400.0001 ####[facility] [address] [place], [address] WBC 0-5 SEEN Normal 0-5 [facility] Comment on above: Order Comment: CLEAN CATCH Performed By: #### L 400.0001 ####[facility] [address] [place], [address] BACTERIA 0 SEEN Normal None Seen [facility] Comment on above: Order Comment: CLEAN CATCH Performed By: #### L 400.0001 ####[facility] [address] [place], [address] Mucus Ql (Urine sed) 0 SEEN Normal [facility] Comment on above: Order Comment: CLEAN CATCH Performed By: #### L 400.0001 ####[facility] [address] [place], [address] Urine clarityOrdered By: Sanjeev Win on 01-28-2025 Clarity (U) Clear Clear [facility] Urine color determinationOrd ered By: Bernarda Win on 01-28-2025 Color (U) Yellow Yellow [facility] Urine glucose detectionOrder ed By: Bernarda Win on 01-28-2025 Glucose Ql (U) Normal mg/dl Normal [facility] Urine leukocyte esterase det ection by dipstickOrdered By: Bernarda Win on 01-28-2025 Leukocyte esterase Test strip Ql (U) Negative Negative [facility] Urine pHOrdered By: Yun Win on 01-28-2025 pH (U) 6.0 [pH] 5.0 - 8.0 [facility] Urine sediment bacteria coun t by microscopy (number/high power field)Ordered By: Bernarda Win on 01-28-2025 Bacteria LM.HPF (Urine sed) [#/Area] 0 /[HPF] None Seen [facility] Urine specific gravity measu rementOrdered By: Bernarda Win on 01-28-2025 Specific gravity (U) [Rel density] 1.020 1.002-1.030 [facility] Urine urobilinogen measureme ntOrdered By: Bernarda Win on 01-28-2025 Urobilinogen Ql (U) Normal mg/dl Normal [facility] White blood cell (WBC) count Ordered By: Bernarda Win on 01-28-2025 WBC (Bld) [#/Vol] 5.3 10*3/uL 4.4-11.0 [facility] White blood cell countOrdere d By: Bernarda Win on 01-28-2025 White blood cell count 0-5 SEEN /hpf 0-5 [facility] Absolute lymphocyte countOrd ered By: [facility] on 01-23-2025 Lymphocytes Auto (Unsp spec) [#/Vol] 1.12 10*3/uL 0.83-4.51 [facility] Absolute neutrophil countOrd ered By: [facility] on 01-23-2025 Neutrophils (Bld) [#/Vol] 4.4 10*3/uL 2.0-7.7 [facility] Anion gap in Serum or Plasma Ordered By: [facility] on 01-23-2025 Anion gap [Moles/Vol] 10 mmol/L 5-[address] [facility] Automated lymphocyte count a s percentage of total leukocytesOrdered By: [facility] on 01-23-2025 Lymphocytes/100 WBC Auto (Unsp spec) 18.2 % Low 19-41 [facility] BUN/creatinine ratioOrdered By: [facility] Robson on 01-23-2025 Urea nitrogen/Creatinine [Mass ratio] 9.4 mg/mg Low 10-20 [facility] Basophil percentageOrdered B y: Alis Chance on 01-23-2025 Basophils/100 WBC (Bld) 0.3 % 0-1 [facility] Bilirubin, totalOrdered By: [facility] Robson on 01-23-2025 Bilirubin [Mass/Vol] 0.19 mg/dL 0.00-1.30 [facility] CBC W/Diff, Automatedon Anisocytosis Ql (Bld) 2+ Normal [facility] Comment on above: Performed By: #### L 500.4050, L100.0100 ####[facility] [address] [place], [address] Carbon dioxide, total [Moles /volume] in Central venous bloodOrdered By: [facility] on 01-23-2025 CO2 [Moles/Vol] 24.2 mmol/L 21.0-32.0 [facility] Chloride assayOrdered By: Charly Chance on 01-23-2025 Chloride [Moles/Vol] 106 mmol/L 98-108 [facility] Comprehensive Metabolic Prof ilon 01-23-2025 Albumin [Mass/Vol] 3.6 g/dL Normal 3.4-4.8 [facility] Comment on above: Performed By: #### L 500.4050, L100.0100 ####[facility] [address] [place], [address] Albumin/Globulin [Mass ratio] 1.9 {ratio} Normal 0.9-2.4 [facility] Comment on above: Performed By: #### L 500.4050, L100.0100 ####[facility] [address] [place], [address] ALK PHOS 81 U/L Normal 35-104 [facility] Comment on above: Performed By: #### L 500.4050, L100.0100 ####[facility] [address] [place], [address] ALT [Catalytic activity/Vol] 17 U/L Normal <=34 [facility] Comment on above: Performed By: #### L 500.4050, L100.0100 ####[facility] [address] [place], [address] AST [Catalytic activity/Vol] 19 U/L Normal <=31 [facility] Comment on above: Performed By: #### L 500.4050, L100.0100 ####[facility] [address] [place], [address] Bilirubin [Mass/Vol] 0.19 mg/dL Normal 0.00-1.30 [facility] Comment on above: Performed By: #### L 500.4050, L100.0100 ####[facility] [address] [place], [address] BUN/CRE 9.4 RATIO Low 10-20 [facility] Comment on above: Performed By: #### L 500.4050, L100.0100 ####[facility] [address] [place], [address] Calcium [Mass/Vol] 8.7 mg/dL Normal 7.6-11.0 [facility] Comment on above: Performed By: #### L 500.4050, L100.0100 ####[facility] [address] [place], [address] Chloride [Moles/Vol] 106 mmol/L Normal 98-108 [facility] Comment on above: Performed By: #### L 500.4050, L100.0100 ####[facility] [address] [place], [address] CO2 [Moles/Vol] 24.2 mmol/L Normal 21.0-32.0 [facility] Comment on above: Performed By: #### L 500.4050, L100.0100 ####[facility] [address] [place], [address] Creatinine [Mass/Vol] 0.78 mg/dL Normal 0.70-1.[address] [facility] Comment on above: Performed By: #### L 500.4050, L100.0100 ####[facility] [address] [place], [address] ECRCL 59.32 ml/min Normal 50-250 [facility] Comment on above: Performed By: #### L 500.4050, L100.0100 ####[facility] [address] [place], [address] GAP 10 Normal 5-15 [facility] Comment on above: Performed By: #### L 500.4050, L100.0100 ####[facility] [address] [place], [address] GFR/1.73 sq M.predicted among non-blacks MDRD (S/P/Bld) [Vol rate/Area] 81 mL/min/{1.73_m2} Normal >60 [facility] Comment on above: Result Comment: mL/m in/1.73m2 CKD-EPI Creatinine Equation (2020) Performed By: #### L 500.4050, L100.0100 ####[facility] [address] [place], [address] Globulin (S) [Mass/Vol] 1.9 g/dL Low 2.2-4.2 [facility] Comment on above: Performed By: #### L 500.4050, L100.0100 ####[facility] [address] [place], [address] Glucose [Mass/Vol] 98 mg/dL Normal 70-99 [facility] Comment on above: Performed By: #### L 500.4050, L100.0100 ####[facility] [address] [place], [address] Potassium [Moles/Vol] 3.9 mmol/L Normal 3.3-5.[address] [facility] Comment on above: Performed By: #### L 500.4050, L100.0100 ####[facility] [address] [place], [address] Sodium [Moles/Vol] 140 mmol/L Normal 133-145 [facility] Comment on above: Performed By: #### L 500.4050, L100.0100 ####[facility] [address] [place], [address] T PROT 5.5 g/dL Low 5.9-8.4 [facility] Comment on above: Performed By: #### L 500.4050, L100.0100 ####[facility] [address] [place], [address] Urea nitrogen [Mass/Vol] 7 mg/dL Normal 4-19 [facility] Comment on above: Performed By: #### L 500.4050, L100.0100 ####[facility] [address] [place], [address] Eosinophil percentageOrdered By: [facility] on 01-23-2025 Eosinophils/100 WBC (Bld) 0.0 % 0-5 [facility] Erythrocyte distribution wid th ratioOrdered By: [facility] Robson on 01-23-2025 Erythrocyte distribution width (RBC) [Ratio] 23.9 % High 11.6-14.6 [facility] Erythrocyte distribution wid th standard deviationOrdered By: [facility] Robson on 01-23-2025 Erythrocyte distribution width (RBC) [Ratio] 84.6 fl High 35.1-43.9 [facility] Glomerular filtration rate ( GFR) estimation/1.73 sq m using serum, plasma, or whole bOrdered By: [facility] on 01-23-2025 GFR/1.73 sq M.predicted among non-blacks MDRD (S/P/Bld) [Vol rate/Area] 81 mL/min/{1.73_m2} >60 [facility] Comment on above: mL/min/1.73m2 CKD-EP I Creatinine Equation (2020) Hematocrit Auto (Bld) [Volum e fraction]Ordered By: [facility] on 01-23-2025 Hematocrit (Bld) [Volume fraction] 29.8 % Low 37-47 [facility] Hemoglobin measurementOrdere d By: Alis Chance on 01-23-2025 Hemoglobin (Bld) [Mass/Vol] 9.5 g/dL Low 12.0-15.0 [facility] Immature granulocytes/100 WB C Auto (Bld)Ordered By: [facility] on 01-23-2025 Immature granulocytes/100 WBC (Bld) 0.800 % 0.0-0.9 [facility] Comment on above: IG% - Immature Granu locytes (promyelocytes, myelocytes and metamyelocytes) > 1% indicates that a LEFT SHIFT is Present. Laboratory - Chemistry and C hemistry - challengeOrdered By: Alis Chance on 01-23-2025 AST [Catalytic activity/Vol] 19 U/L <32 [facility] Laboratory - Hematology and Cell countsOrdered By: Alis Chance on 01-23-2025 Anisocytosis Ql (Bld) 2+ [facility] MCV (mean corpuscular volume ) determinationOrdered By: Alis Chance on 01-23-2025 MCV (RBC) [Entitic vol] 96.4 fL 81-99 [facility] Mean corpuscular hemoglobin (MCH) determinationOrdered By: Alis Chance on 01-23-2025 MCH (RBC) [Entitic mass] 30.7 pg 27.0-32.0 [facility] Mean corpuscular hemoglobin concentration (MCHC) determinationOrdered By: Alis Chance on 01-23-2025 MCHC (RBC) [Mass/Vol] 31.9 g/dL Low 32-[address] [facility] Mean platelet volume determi nationOrdered By: Alis Chance on 01-23-2025 Platelet mean volume (Bld) [Entitic vol] 9.0 fL 6.2-12.0 [facility] Monocyte percentageOrdered B y: Alis Chance on 01-23-2025 Monocytes/100 WBC (Bld) 9.7 % 0-10 [facility] Neutrophil percentageOrdered By: Alis Chance on 01-23-2025 Neutrophils/100 WBC (Bld) 71.0 % High 47-70 [facility] No Panel InformationOrdered By: Alis Chance on 01-23-2025 2+ [facility] 19 U/L <32 [facility] Nucleated red blood cell per centageOrdered By: Alis Chance on 01-23-2025 Nucleated RBC/100 WBC (Bld) [Ratio] 0 % 0-5 [facility] Oncology Visit Reporton Oncology Visit Report Normal [facility] Platelet countOrdered By: Charly Chance on 01-23-2025 Platelets (Bld) [#/Vol] 295 10*3/uL 150-450 [facility] Potassium measurement (mass/ volume)Ordered By: Alis Chance on 01-23-2025 Potassium (Unsp spec) [Mass/Vol] 3.9 mmol/L 3.3-5.1 [facility] RBC Auto (Bld) [#/Vol]Ordere d By: Alis Chance on 01-23-2025 RBC (Bld) [#/Vol] 3.09 10*6/uL Low 4.2-5.4 [facility] Serum creatinine measurement (mass/volume)Ordered By: Alis Chance on 01-23-2025 Creatinine [Mass/Vol] 0.78 mg/dL 0.70-1.[address] [facility] Serum globulin measurementOr dered By: Alis Chance on 01-23-2025 Globulin (S) [Mass/Vol] 1.9 g/dL Low 2.2-4.2 [facility] Serum glucose measurement (m ass/volume)Ordered By: Alis Chance on 01-23-2025 Glucose [Mass/Vol] 98 mg/dL 70-99 [facility] Serum or plasma alanine vicente otransferase (ALT) measurementOrdered By: Alis Chance on 01-23-2025 ALT [Catalytic activity/Vol] 17 U/L <35 [facility] Serum or plasma albumin usman urement (mass/volume)Ordered By: Alis Chance on 01-23-2025 Albumin [Mass/Vol] 3.6 g/dL 3.4-4.8 [facility] Serum or plasma albumin/glob ulin mass ratioOrdered By: Alis Chance on 01-23-2025 Albumin/Globulin [Mass ratio] 1.9 {ratio} 0.9-2.4 [facility] Serum or plasma alkaline marcela sphatase measurementOrdered By: Alis Chance on 01-23-2025 ALP [Catalytic activity/Vol] 81 U/L 35-104 [facility] Serum or plasma calcium usman urement (mass/volume)Ordered By: Alis Chance on 01-23-2025 Calcium [Mass/Vol] 8.7 mg/dL 7.6-11.0 [facility] Serum or plasma urea nitroge n measurement (mass/volume)Ordered By: Alis Chance on 01-23-2025 Urea nitrogen [Mass/Vol] 7 mg/dL 4-19 [facility] Sodium levelOrdered By: Maurice wilcox Robson on 01-23-2025 Sodium [Moles/Vol] 140 mmol/L 133-145 [facility] Total proteinOrdered By: Kitty irwin Robson on 01-23-2025 Protein [Mass/Vol] 5.5 g/dL Low 5.9-8.4 [facility] White blood cell (WBC) count Ordered By: Alis Robson on 01-23-2025 WBC (Bld) [#/Vol] 6.2 10*3/uL 4.4-11.0 [facility] CT Chest, Abd, Pel w/Contras ton 01-16-2025 CT Chest, Abd, Pel w/Contrast Normal [facility] Absolute lymphocyte countOrd ered By: Alis Robson on 01-02-2025 Lymphocytes Auto (Unsp spec) [#/Vol] 1.38 10*3/uL 0.83-4.51 [facility] Absolute neutrophil countOrd ered By: Mauricejeri Chance on 01-02-2025 Neutrophils (Bld) [#/Vol] 4.2 10*3/uL 2.0-7.7 [facility] Anion gap in Serum or Plasma Ordered By: Mauricejrei Chance on 01-02-2025 Anion gap [Moles/Vol] 14 mmol/L 5-[address] [facility] Automated lymphocyte count a s percentage of total leukocytesOrdered By: Mauricejeri Chance on 01-02-2025 Lymphocytes/100 WBC Auto (Unsp spec) 21.8 % 19-41 [facility] BUN/creatinine ratioOrdered By: Mauricejeri Chance on 01-02-2025 Urea nitrogen/Creatinine [Mass ratio] 6.2 mg/mg Low 10-20 [facility] Basophil percentageOrdered B y: Mauricejeri Chance on 01-02-2025 Basophils/100 WBC (Bld) 0.3 % 0-1 [facility] Bilirubin, totalOrdered By: Mauricejeri Chance on 01-02-2025 Bilirubin [Mass/Vol] 0.23 mg/dL 0.00-1.30 [facility] Blood manual differential co mment interpretation (narrative result)Ordered By: Alis Chance on 01-02-2025 Manual differential comment Luiz (Bld) [Interp] SCANNED [facility] CBC W/Diff, Automatedon 12-17 Anisocytosis Ql (Bld) 2+ Normal [facility] Comment on above: Performed By: #### L 100.0100, L500.4050 ####[facility] [address] [place], [address] SMEAR COMMENT SCANNED Normal [facility] Comment on above: Performed By: #### L 100.0100, L500.4050 ####[facility] [address] [place], [place], [id number] Carbon dioxide, total [Moles /volume] in Central venous bloodOrdered By: Alis Chance on 01-02-2025 CO2 [Moles/Vol] 25.0 mmol/L 21.0-32.0 [facility] Chloride assayOrdered By: Charly Chance on 01-02-2025 Chloride [Moles/Vol] 103 mmol/L 98-108 [facility] Comprehensive Metabolic Prof ilon 01-02-2025 Bilirubin [Mass/Vol] 0.23 mg/dL Normal 0.00-1.30 [facility] Comment on above: Performed By: #### L 100.0100, L500.4050 ####[facility] [address] [place], [place], [id number] Eosinophil percentageOrdered By: Alis Chance on 01-02-2025 Eosinophils/100 WBC (Bld) 0.0 % 0-5 [facility] Erythrocyte distribution wid th ratioOrdered By: Alis Chance on 01-02-2025 Erythrocyte distribution width (RBC) [Ratio] 24.7 % High 11.6-14.6 [facility] Erythrocyte distribution wid th standard deviationOrdered By: Alis Chance on 01-02-2025 Erythrocyte distribution width (RBC) [Ratio] 81.8 fl High 35.1-43.9 [facility] Glomerular filtration rate ( GFR) estimation/1.73 sq m using serum, plasma, or whole bOrdered By: Alis Chance on 01-02-2025 GFR/1.73 sq M.predicted among non-blacks MDRD (S/P/Bld) [Vol rate/Area] 58 mL/min/{1.73_m2} Low >60 [facility] Comment on above: mL/min/1.73m2 CKD-EP I Creatinine Equation (2020) Hematocrit Auto (Bld) [Volum e fraction]Ordered By: Alis Chance on 01-02-2025 Hematocrit (Bld) [Volume fraction] 32.9 % Low 37-47 [facility] Hemoglobin measurementOrdere d By: Alis Chance on 01-02-2025 Hemoglobin (Bld) [Mass/Vol] 10.6 g/dL Low 12.0-15.0 [facility] Immature granulocytes/100 WB C Auto (Bld)Ordered By: Alis Chance on 01-02-2025 Immature granulocytes/100 WBC (Bld) 0.500 % 0.0-0.9 [facility] Comment on above: IG% - Immature Granu locytes (promyelocytes, myelocytes and metamyelocytes) > 1% indicates that a LEFT SHIFT is Present. Laboratory - Chemistry and C hemistry - challengeOrdered By: Alis Chance on 01-02-2025 AST [Catalytic activity/Vol] 21 U/L <32 [facility] Laboratory - Hematology and Cell countsOrdered By: Alis Chance on 01-02-2025 Anisocytosis Ql (Bld) 2+ [facility] MCV (mean corpuscular volume ) determinationOrdered By: Alis Chance on 01-02-2025 MCV (RBC) [Entitic vol] 90.9 fL 81-99 [facility] Mean corpuscular hemoglobin (MCH) determinationOrdered By: Alis Chance on 01-02-2025 MCH (RBC) [Entitic mass] 29.3 pg 27.0-32.0 [facility] Mean corpuscular hemoglobin concentration (MCHC) determinationOrdered By: Alis Chance on 01-02-2025 MCHC (RBC) [Mass/Vol] 32.2 g/dL 32-[address] [facility] Mean platelet volume determi nationOrdered By: Alis Chance on 01-02-2025 Platelet mean volume (Bld) [Entitic vol] 8.6 fL 6.2-12.0 [facility] Monocyte percentageOrdered B y: Alis Chance on 01-02-2025 Monocytes/100 WBC (Bld) 10.9 % High 0-10 [facility] Neutrophil percentageOrdered By: Alis Chance on 01-02-2025 Neutrophils/100 WBC (Bld) 66.5 % 47-70 [facility] Nucleated red blood cell per centageOrdered By: Alis Chance on 01-02-2025 Nucleated RBC/100 WBC (Bld) [Ratio] 0 % 0-5 [facility] Oncology Visit Reporton 12-17 Oncology Visit Report Normal [facility] Platelet countOrdered By: Charly Chance on 01-02-2025 Platelets (Bld) [#/Vol] 228 10*3/uL 150-450 [facility] Potassium measurement (mass/ volume)Ordered By: Alis Chance on 01-02-2025 Potassium (Unsp spec) [Mass/Vol] 3.4 mmol/L 3.3-5.1 [facility] RBC Auto (Bld) [#/Vol]Ordere d By: Alis Chance on 01-02-2025 RBC (Bld) [#/Vol] 3.62 10*6/uL Low 4.2-5.4 [facility] Serum creatinine measurement (mass/volume)Ordered By: Alis Chance on 01-02-2025 Creatinine [Mass/Vol] 1.02 mg/dL 0.70-1.[address] [facility] Serum globulin measurementOr dered By: Alis Chance on 01-02-2025 Globulin (S) [Mass/Vol] 2.4 g/dL 2.2-4.2 [facility] Serum glucose measurement (m ass/volume)Ordered By: Alis Chance on 01-02-2025 Glucose [Mass/Vol] 106 mg/dL High 70-99 [facility] Serum or plasma alanine vicente otransferase (ALT) measurementOrdered By: Alis Chance on 01-02-2025 ALT [Catalytic activity/Vol] 14 U/L <35 [facility] Serum or plasma albumin usman urement (mass/volume)Ordered By: Alis Chance on 01-02-2025 Albumin [Mass/Vol] 4.2 g/dL 3.4-4.8 [facility] Serum or plasma albumin/glob ulin mass ratioOrdered By: Alis Chance on 01-02-2025 Albumin/Globulin [Mass ratio] 1.8 {ratio} 0.9-2.4 [facility] Serum or plasma alkaline marcela sphatase measurementOrdered By: Alis Chance on 01-02-2025 ALP [Catalytic activity/Vol] 79 U/L 35-104 [facility] Serum or plasma calcium usman urement (mass/volume)Ordered By: Alis Chance on 01-02-2025 Calcium [Mass/Vol] 9.6 mg/dL 7.6-11.0 [facility] Serum or plasma urea nitroge n measurement (mass/volume)Ordered By: Alis Chance on 01-02-2025 Urea nitrogen [Mass/Vol] 6 mg/dL 4-19 [facility] Sodium levelOrdered By: Maurice Chance on 01-02-2025 Sodium [Moles/Vol] 142 mmol/L 133-145 [facility] Total proteinOrdered By: Kitty Chance on 01-02-2025 Protein [Mass/Vol] 6.6 g/dL 5.9-8.4 [facility] White blood cell (WBC) count Ordered By: Alis Chance on 01-02-2025 WBC (Bld) [#/Vol] 6.3 10*3/uL 4.4-11.0 [facility] Absolute lymphocyte countOrd ered By: Alis Chance on 12-12-2024 Lymphocytes Auto (Unsp spec) [#/Vol] 1.54 10*3/uL 0.83-4.51 [facility] Absolute neutrophil countOrd ered By: Alis Chance on 12-12-2024 Neutrophils (Bld) [#/Vol] 3.1 10*3/uL 2.0-7.7 [facility] Anion gap in Serum or Plasma Ordered By: Alis Chance on 12-12-2024 Anion gap [Moles/Vol] 13 mmol/L 5-[address] [facility] Automated lymphocyte count a s percentage of total leukocytesOrdered By: Alis Chance on 12-12-2024 Lymphocytes/100 WBC Auto (Unsp spec) 28.5 % 19-41 [facility] BUN/creatinine ratioOrdered By: [facility] on 12-12-2024 Urea nitrogen/Creatinine [Mass ratio] 5.6 mg/mg Low 10-20 [facility] Basophil percentageOrdered B y: Alis Chance on 12-12-2024 Basophils/100 WBC (Bld) 0.6 % 0-1 [facility] Bilirubin, totalOrdered By: [facility] on 12-12-2024 Bilirubin [Mass/Vol] 0.20 mg/dL 0.00-1.30 [facility] Blood polychromasia detectio n by light microscopyOrdered By: Alis Chance on 12-12-2024 Polychromasia LM Ql (Bld) 1+ [facility] CBC W/Diff, Automatedon 11-17 POLYCHROMASIA 1+ Normal [facility] Comment on above: Performed By: #### L 500.4050, L100.0100 ####[facility] [address] [place], [address] Anisocytosis Ql (Bld) 2+ Normal [facility] Comment on above: Performed By: #### L 500.4050, L100.0100 ####[facility] [address] [place], [address] PLT EST A Normal ADEQ [facility] Comment on above: Performed By: #### L 500.4050, L100.0100 ####[facility] [address] [place], [address] RED CELL MORPH NORM C+C Normal NORM C C [facility] Comment on above: Performed By: #### L 500.4050, L100.0100 ####[facility] [address] [place], [address] Carbon dioxide, total [Moles /volume] in Central venous bloodOrdered By: Alis Chance on 12-12-2024 CO2 [Moles/Vol] 24.6 mmol/L 21.0-32.0 [facility] [facility] Chloride assayOrdered By: Charly Chance on 12-12-2024 Chloride [Moles/Vol] 102 mmol/L 98-108 [facility] Comprehensive Metabolic Prof ilon 12-12-2024 Albumin [Mass/Vol] 4.1 g/dL Normal 3.4-4.8 [facility] Comment on above: Performed By: #### L 500.4050, L100.0100 ####[facility] [address] [place], [address] Albumin/Globulin [Mass ratio] 1.7 {ratio} Normal 0.9-2.4 [facility] Comment on above: Performed By: #### L 500.4050, L100.0100 ####[facility] [address] [place], [address] ALK PHOS 78 U/L Normal 35-104 [facility] Comment on above: Performed By: #### L 500.4050, L100.0100 ####[facility] [address] [place], [address] ALT [Catalytic activity/Vol] 15 U/L Normal <=34 [facility] Comment on above: Performed By: #### L 500.4050, L100.0100 ####[facility] [address] [place], [address] AST [Catalytic activity/Vol] 23 U/L Normal <=31 [facility] Comment on above: Performed By: #### L 500.4050, L100.0100 ####[facility] [address] [place], [address] Bilirubin [Mass/Vol] 0.20 mg/dL Normal 0.00-1.30 [facility] Comment on above: Performed By: #### L 500.4050, L100.0100 ####[facility] [address] [place], [address] BUN/CRE 5.6 RATIO Low 10-20 [facility] Comment on above: Performed By: #### L 500.4050, L100.0100 ####[facility] [address] [place], [address] Calcium [Mass/Vol] 9.3 mg/dL Normal 7.6-11.0 [facility] Comment on above: Performed By: #### L 500.4050, L100.0100 ####[facility] [address] [place], [address] Chloride [Moles/Vol] 102 mmol/L Normal 98-108 [facility] Comment on above: Performed By: #### L 500.4050, L100.0100 ####[facility] [address] [place], [address] CO2 [Moles/Vol] 24.6 mmol/L Normal 21.0-32.0 [facility] Comment on above: Performed By: #### L 500.4050, L100.0100 ####[facility] [address] [place], [address] Creatinine [Mass/Vol] 0.90 mg/dL Normal 0.70-1.[address] [facility] Comment on above: Performed By: #### L 500.4050, L100.0100 ####[facility] [address] [place], [address] ECRCL 53.51 ml/min Normal 50-250 [facility] Comment on above: Performed By: #### L 500.4050, L100.0100 ####[facility] [address] [place], [address] GAP 13 Normal 5-15 [facility] Comment on above: Performed By: #### L 500.4050, L100.0100 ####[facility] [address] [place], [address] GFR/1.73 sq M.predicted among non-blacks MDRD (S/P/Bld) [Vol rate/Area] 68 mL/min/{1.73_m2} Normal >60 [facility] Comment on above: Result Comment: mL/m in/1.73m2 CKD-EPI Creatinine Equation (2020) Performed By: #### L 500.4050, L100.0100 ####[facility] [address] [place], [address] Globulin (S) [Mass/Vol] 2.5 g/dL Normal 2.2-4.2 [facility] Comment on above: Performed By: #### L 500.4050, L100.0100 ####[facility] [address] [place], [address] Glucose [Mass/Vol] 115 mg/dL High 70-99 [facility] Comment on above: Performed By: #### L 500.4050, L100.0100 ####[facility] [address] [place], [address] Potassium [Moles/Vol] 3.5 mmol/L Normal 3.3-5.[address] [facility] Comment on above: Performed By: #### L 500.4050, L100.0100 ####[facility] [address] [place], [address] Sodium [Moles/Vol] 139 mmol/L Normal 133-145 [facility] Comment on above: Performed By: #### L 500.4050, L100.0100 ####[facility] [address] [place], [address] T PROT 6.6 g/dL Normal 5.9-8.4 [facility] Comment on above: Performed By: #### L 500.4050, L100.0100 ####[facility] [address] [place], [place], [address] Urea nitrogen [Mass/Vol] 5 mg/dL Normal 4-19 [facility] Comment on above: Performed By: #### L 500.4050, L100.0100 ####[facility] [address] [place], [place], [address] Eosinophil percentageOrdered By: Alis Chance on 12-12-2024 Eosinophils/100 WBC (Bld) 0.0 % 0-5 [facility] Erythrocyte distribution wid th ratioOrdered By: Alis Chance on 12-12-2024 Erythrocyte distribution width (RBC) [Ratio] 21.8 % High 11.6-14.6 [facility] Erythrocyte distribution wid th standard deviationOrdered By: Alis Chance on 12-12-2024 Erythrocyte distribution width (RBC) [Ratio] 66.2 fl High 35.1-43.9 [facility] Erythrocyte morphology asses smentOrdered By: Alis Chance on 12-12-2024 RBC morphology finding Nom (Bld) NORM C+C NORMAL NORM C&C [facility] Glomerular filtration rate ( GFR) estimation/1.73 sq m using serum, plasma, or whole bOrdered By: Alis Chance on 12-12-2024 GFR/1.73 sq M.predicted among non-blacks MDRD (S/P/Bld) [Vol rate/Area] 68 mL/min/{1.73_m2} >60 [facility] Comment on above: mL/min/1.73m2 CKD-EP I Creatinine Equation (2020) Hematocrit Auto (Bld) [Volum e fraction]Ordered By: Alis Chance on 12-12-2024 Hematocrit (Bld) [Volume fraction] 29.5 % Low 37-47 [facility] Hemoglobin measurementOrdere d By: Alis Chance on 12-12-2024 Hemoglobin (Bld) [Mass/Vol] 9.4 g/dL Low 12.0-15.0 [facility] Immature granulocytes/100 WB C Auto (Bld)Ordered By: Alis Chance on 12-12-2024 Immature granulocytes/100 WBC (Bld) 1.100 % High 0.0-0.9 [facility] Comment on above: IG% - Immature Granu locytes (promyelocytes, myelocytes and metamyelocytes) > 1% indicates that a LEFT SHIFT is Present. Laboratory - Chemistry and C hemistry - challengeOrdered By: Alis Chance on 12-12-2024 AST [Catalytic activity/Vol] 23 U/L <32 [facility] Laboratory - Hematology and Cell countsOrdered By: Ails Chance on 12-12-2024 Anisocytosis Ql (Bld) 2+ [facility] MCV (mean corpuscular volume ) determinationOrdered By: Alis Chance on 12-12-2024 MCV (RBC) [Entitic vol] 87.0 fL 81-99 [facility] Magnesiumon 12-12-2024 Magnesium [Mass/Vol] 1.8 mg/dL Normal 1.5-2.2 [facility] Comment on above: Performed By: #### L 501.5200, L501.2300 ####[facility] [address] [place], [address] Magnesium measurement (mass/ volume)Ordered By: [facility] on 12-12-2024 Magnesium (Unsp spec) [Mass/Vol] 1.8 mg/dL 1.5-2.2 [facility] Mean corpuscular hemoglobin (MCH) determinationOrdered By: [facility] on 12-12-2024 MCH (RBC) [Entitic mass] 27.7 pg 27.0-32.0 [facility] Mean corpuscular hemoglobin concentration (MCHC) determinationOrdered By: [facility] on 12-12-2024 MCHC (RBC) [Mass/Vol] 31.9 g/dL Low 32-[address] [facility] Mean platelet volume determi nationOrdered By: Alis Chance on 12-12-2024 Platelet mean volume (Bld) [Entitic vol] 8.9 fL 6.2-12.0 [facility] Monocyte percentageOrdered B y: Alis Chance on 12-12-2024 Monocytes/100 WBC (Bld) 13.5 % High 0-10 [facility] Neutrophil percentageOrdered By: Alis Chance on 12-12-2024 Neutrophils/100 WBC (Bld) 56.3 % 47-70 [facility] Nucleated red blood cell per centageOrdered By: Alis Chance on 12-12-2024 Nucleated RBC/100 WBC (Bld) [Ratio] 0 % 0-5 [facility] Oncology Visit Reporton 11-17 Oncology Visit Report Normal [facility] Phosphoruson 12-12-2024 Phosphate [Mass/Vol] 3.8 mg/dL Normal 2.7-4.5 [facility] Comment on above: Performed By: #### L 501.5200, L501.2300 ####[facility] [address] [place], [address] Platelet countOrdered By: Charly Chance on 12-12-2024 Platelets (Bld) [#/Vol] 266 10*3/uL 150-450 [facility] Platelet estimateOrdered By: Alis Chance on 12-12-2024 Platelets LM Ql (Bld) A ADEQ [facility] Potassium measurement (mass/ volume)Ordered By: Alis Chance on 12-12-2024 Potassium (Unsp spec) [Mass/Vol] 3.5 mmol/L 3.3-5.1 [facility] RBC Auto (Bld) [#/Vol]Ordere d By: Alis Chance on 12-12-2024 RBC (Bld) [#/Vol] 3.39 10*6/uL Low 4.2-5.4 [facility] Serum creatinine measurement (mass/volume)Ordered By: Alis Chance on 12-12-2024 Creatinine [Mass/Vol] 0.90 mg/dL 0.70-1.[address] [facility] Serum globulin measurementOr dered By: Alis Chance on 12-12-2024 Globulin (S) [Mass/Vol] 2.5 g/dL 2.2-4.2 [facility] Serum glucose measurement (m ass/volume)Ordered By: Alis Chance on 12-12-2024 Glucose [Mass/Vol] 115 mg/dL High 70-99 [facility] Serum or plasma alanine vicente otransferase (ALT) measurementOrdered By: Alis Chance on 12-12-2024 ALT [Catalytic activity/Vol] 15 U/L <35 [facility] Serum or plasma albumin usman urement (mass/volume)Ordered By: Alis Chance on 12-12-2024 Albumin [Mass/Vol] 4.1 g/dL 3.4-4.8 [facility] Serum or plasma albumin/glob ulin mass ratioOrdered By: Alis Chance on 12-12-2024 Albumin/Globulin [Mass ratio] 1.7 {ratio} 0.9-2.4 [facility] Serum or plasma alkaline marcela sphatase measurementOrdered By: Alis Chance on 12-12-2024 ALP [Catalytic activity/Vol] 78 U/L 35-104 [facility] Serum or plasma calcium usman urement (mass/volume)Ordered By: Alis Chance on 12-12-2024 Calcium [Mass/Vol] 9.3 mg/dL 7.6-11.0 [facility] Serum or plasma urea nitroge n measurement (mass/volume)Ordered By: Alis Chance on 12-12-2024 Urea nitrogen [Mass/Vol] 5 mg/dL 4-19 [facility] Sodium levelOrdered By: Maurice Chanec on 12-12-2024 Sodium [Moles/Vol] 139 mmol/L 133-145 [facility] Total proteinOrdered By: Kitty Chance on 12-12-2024 Protein [Mass/Vol] 6.6 g/dL 5.9-8.4 [facility] White blood cell (WBC) count Ordered By: Alis Chance on 12-12-2024 WBC (Bld) [#/Vol] 5.4 10*3/uL 4.4-11.0 [facility] XR FINGER THUMB 3 VIEWS LEFT [...] 11/24/2024 3:30:21 PM Ordering Provider: WILBUR AGRAWAL [facility] CBC W/Diff, Automatedon 05-0 Absolute Lymph 1.29 X10 3/uL Normal 0.83-4.51 [facility] Comment on above: Performed By: #### L 500.4050, L100.0100 ####[facility] [address] [place], [address] Absolute Neut 2.5 X10 3/uL Normal 2.0-7.7 [facility] Comment on above: Performed By: #### L 500.4050, L100.0100 ####[facility] [address] [place], [address] Basophils/100 WBC (Bld) 0.7 % Normal 0-1 [facility] Comment on above: Performed By: #### L 500.4050, L100.0100 ####[facility] [address] [place], [address] Eosinophils/100 WBC (Bld) 0.0 % Normal 0-5 [facility] Comment on above: Performed By: #### L 500.4050, L100.0100 ####[facility] [address] [place], [address] Erythrocyte distribution width (RBC) [Ratio] 18.5 % High 11.6-14.6 [facility] Comment on above: Performed By: #### L 500.4050, L100.0100 ####[facility] [address] [place], [address] Hematocrit (Bld) [Volume fraction] 31.1 % Low 37-47 [facility] Comment on above: Performed By: #### L 500.4050, L100.0100 ####[facility] [address] [place], [address] Hemoglobin (Bld) [Mass/Vol] 9.8 g/dL Low 12.0-15.0 [facility] Comment on above: Performed By: #### L 500.4050, L100.0100 ####[facility] [address] [place], [address] IG% 0.900 Normal 0.0-0.9 [facility] Comment on above: Result Comment: IG% - Immature Granulocytes (promyelocytes, myelocytes andmetamyelocytes) > 1% indicates that a LEFT SHIFT is Present. Performed By: #### L 500.4050, L100.0100 ####[facility] [address] [place], [address] Lymphocytes/100 WBC (Bld) 28.9 % Normal 19-41 [facility] Comment on above: Performed By: #### L 500.4050, L100.0100 ####[facility] [address] [place], [address] MCH (RBC) [Entitic mass] 26.5 pg Low 27.0-32.0 [facility] Comment on above: Performed By: #### L 500.4050, L100.0100 ####[facility] [address] [place], [address] MCHC (RBC) [Mass/Vol] 31.5 g/dL Low 32-[address] [facility] Comment on above: Performed By: #### L 500.4050, L100.0100 ####[facility] [address] [place], [address] MCV (RBC) [Entitic vol] 84.1 fL Normal 81-99 [facility] Comment on above: Performed By: #### L 500.4050, L100.0100 ####[facility] [address] [place], [address] Monocytes/100 WBC (Bld) 14.8 % High 0-10 [facility] Comment on above: Performed By: #### L 500.4050, L100.0100 ####[facility] [address] [place], [address] Neutrophils/100 WBC (Bld) 54.7 % Normal 47-70 [facility] Comment on above: Performed By: #### L 500.4050, L100.0100 ####[facility] [address] [place], [address] Nucleated RBC (Bld) [#/Vol] 0 10*3/uL Normal 0-5 [facility] Comment on above: Performed By: #### L 500.4050, L100.0100 ####[facility] [address] [place], [address] Platelet mean volume (Bld) [Entitic vol] 8.6 fL Normal 6.2-12.0 [facility] Comment on above: Performed By: #### L 500.4050, L100.0100 ####[facility] [address] [place], [address] Platelets (Bld) [#/Vol] 322 10*3/uL Normal 150-450 [facility] Comment on above: Performed By: #### L 500.4050, L100.0100 ####[facility] [address] [place], [address] RBC (Bld) [#/Vol] 3.70 10*6/uL Low 4.2-5.4 [facility] Comment on above: Performed By: #### L 500.4050, L100.0100 ####[facility] [address] [place], [address] RDW SD 49.6 fl High 35.1-43.9 [facility] Comment on above: Performed By: #### L 500.4050, L100.0100 ####[facility] [address] [place], [address] WBC (Bld) [#/Vol] 4.5 10*3/uL Normal 4.4-11.0 [facility] Comment on above: Performed By: #### L 500.4050, L100.0100 ####[facility] [address] [place], [address] Comprehensive Metabolic Prof [facility] 11-21-2024 Albumin [Mass/Vol] 4.0 g/dL Normal 3.4-4.8 [facility] Comment on above: Performed By: #### L 500.4050, L100.0100 ####[facility] [address] [place], [address] Albumin/Globulin [Mass ratio] 1.5 {ratio} Normal 0.9-2.4 [facility] Comment on above: Performed By: #### L 500.4050, L100.0100 ####[facility] [address] [place], [address] ALK PHOS 70 U/L Normal 35-104 [facility] Comment on above: Performed By: #### L 500.4050, L100.0100 ####[facility] [address] [place], [address] ALT [Catalytic activity/Vol] 15 U/L Normal <=34 [facility] Comment on above: Performed By: #### L 500.4050, L100.0100 ####[facility] [address] [place], [address] AST [Catalytic activity/Vol] 23 U/L Normal <=31 [facility] Comment on above: Performed By: #### L 500.4050, L100.0100 ####[facility] [address] [place], [address] Bilirubin [Mass/Vol] 0.20 mg/dL Normal 0.00-1.30 [facility] Comment on above: Performed By: #### L 500.4050, L100.0100 ####[facility] [address] [place], [address] BUN/CRE 10.1 RATIO Normal 10-20 [facility] Comment on above: Performed By: #### L 500.4050, L100.0100 ####[facility] [address] [place], [address] Calcium [Mass/Vol] 9.5 mg/dL Normal 7.6-11.0 [facility] Comment on above: Performed By: #### L 500.4050, L100.0100 ####[facility] [address] [place], [address] Chloride [Moles/Vol] 102 mmol/L Normal 98-108 [facility] Comment on above: Performed By: #### L 500.4050, L100.0100 ####[facility] [address] [place], [address] CO2 [Moles/Vol] 25.9 mmol/L Normal 21.0-32.0 [facility] Comment on above: Performed By: #### L 500.4050, L100.0100 ####[facility] [address] [place], [address] Creatinine [Mass/Vol] 0.85 mg/dL Normal 0.70-1.[address] [facility] Comment on above: Performed By: #### L 500.4050, L100.0100 ####[facility] [address] [place], [address] ECRCL 57.11 ml/min Normal 50-250 [facility] Comment on above: Performed By: #### L 500.4050, L100.0100 ####[facility] [address] [place], [address] GAP 12 Normal 5-15 [facility] Comment on above: Performed By: #### L 500.4050, L100.0100 ####[facility] [address] [place], [address] GFR/1.73 sq M.predicted among non-blacks MDRD (S/P/Bld) [Vol rate/Area] 73 mL/min/{1.73_m2} Normal >60 [facility] Comment on above: Result Comment: mL/m in/1.73m2 CKD-EPI Creatinine Equation (2020) Performed By: #### L 500.4050, L100.0100 ####[facility] [address] [place], [address] Globulin (S) [Mass/Vol] 2.6 g/dL Normal 2.2-4.2 [facility] Comment on above: Performed By: #### L 500.4050, L100.0100 ####[facility] [address] [place], [address] Glucose [Mass/Vol] 101 mg/dL High 70-99 [facility] Comment on above: Performed By: #### L 500.4050, L100.0100 ####[facility] [address] [place], [address] Potassium [Moles/Vol] 3.7 mmol/L Normal 3.3-5.[address] [facility] Comment on above: Performed By: #### L 500.4050, L100.0100 ####[facility] [address] [place], [address] Sodium [Moles/Vol] 140 mmol/L Normal 133-145 [facility] Comment on above: Performed By: #### L 500.4050, L100.0100 ####[facility] [address] [place], [address] T PROT 6.6 g/dL Normal 5.9-8.4 [facility] Comment on above: Performed By: #### L 500.4050, L100.0100 ####[facility] [address] [place], [address] Urea nitrogen [Mass/Vol] 9 mg/dL Normal 4-19 [facility] Comment on above: Performed By: #### L 500.4050, L100.0100 ####[facility] [address] [place], [address] Oncology Visit Reporton Oncology Visit Report Normal [facility] Cardiology Visit Reporton Cardiology Visit Report Normal [facility] CXR for Line Placementon CXR for Line Placement Normal [facility] Discharge Instructionon Discharge Instruction Normal [facility] MR/POSTOP.ANEon 11-16-2024 MR/POSTOP.ANE Normal [facility] MR/KRICHIHF5yz 11-16-2024 MR/POSTOPAN2 [facility] Operative Reporton Operative Report Normal [facility] CBC W/Diff, Automatedon 04-2 PATH REV Reviewed Normal [facility] Comment on above: Result Comment: LEUK OPENIA WITH ABSOLUTE NEUTROPENIA AND LYMPHOPENIA.NORMOCYTIC HYPOCHROMIC ANEMIA WITH MILD ANISOCYTOSIS.ADEQUATE PLATELETS.Sydnee Erik, MD 11/10/2024 AMENDED REPORT 11/10/24 1131 PATH REV previously reported as: November dori Performed By: #### L 503.6550, L100.0100 ####[facility] [address] [place], [address] Blood band neutrophil count as percentage of total leukocytesOrdered By: Anayeli Audelia on 11-09-2024 Band form neutrophils/100 WBC (Bld) 7 % High 0-5 [facility] Blood basophils/100 leukocyt esOrdered By: Anayeli Audelia on 11-09-2024 Basophils/100 WBC (Bld) 2 % High 0-1 [facility] Blood lymphocytes/100 leukoc ytesOrdered By: Anayeli Audelia on 11-09-2024 Lymphocytes/100 WBC (Bld) 34 % 19-41 [facility] Blood monocytes/100 leukocyt esOrdered By: Anayeli Audelia on 11-09-2024 Monocytes/100 WBC (Bld) 11 % High 0-10 [facility] Blood segmented neutrophils/ 100 leukocytesOrdered By: Anayeli Audelia on 11-09-2024 Segmented neutrophils/100 WBC (Bld) 46 % Low 47-70 [facility] Comprehensive Metabolic Prof ilon 11-09-2024 Albumin [Mass/Vol] 3.8 g/dL Normal 3.4-4.8 [facility] Comment on above: Performed By: #### L 500.4050, L503.0106, L503.6030 ####[facility] [address] [place], [address] Albumin/Globulin [Mass ratio] 1.4 {ratio} Normal 0.9-2.4 [facility] Comment on above: Performed By: #### L 500.4050, L503.0106, L503.6030 ####[facility] [address] [place], [address] ALK PHOS 82 U/L Normal 35-104 [facility] Comment on above: Performed By: #### L 500.4050, L503.0106, L503.6030 ####[facility] [address] [place], [address] ALT [Catalytic activity/Vol] 19 U/L Normal <=34 [facility] Comment on above: Performed By: #### L 500.4050, L503.0106, L503.6030 ####[facility] [address] [place], [address] AST [Catalytic activity/Vol] 17 U/L Normal <=31 [facility] Comment on above: Performed By: #### L 500.4050, L503.0106, L503.6030 ####[facility] [address] [place], [address] Bilirubin [Mass/Vol] 0.17 mg/dL Normal 0.00-1.30 [facility] Comment on above: Performed By: #### L 500.4050, L503.0106, L503.6030 ####[facility] [address] [place], [address] BUN/CRE 10.6 RATIO Normal 10-20 [facility] Comment on above: Performed By: #### L 500.4050, L503.0106, L503.6030 ####[facility] [address] [place], [address] Calcium [Mass/Vol] 9.3 mg/dL Normal 7.6-11.0 [facility] Comment on above: Performed By: #### L 500.4050, L503.0106, L503.6030 ####[facility] [address] [place], [address] Chloride [Moles/Vol] 101 mmol/L Normal 98-108 [facility] Comment on above: Performed By: #### L 500.4050, L503.0106, L503.6030 ####[facility] [address] [place], [address] CO2 [Moles/Vol] 27.5 mmol/L Normal 21.0-32.0 [facility] Comment on above: Performed By: #### L 500.4050, L503.0106, L503.6030 ####[facility] [address] [place], [address] Creatinine [Mass/Vol] 0.75 mg/dL Normal 0.70-1.[address] [facility] Comment on above: Performed By: #### L 500.4050, L503.0106, L503.6030 ####[facility] [address] [place], [address] ECRCL 62.94 ml/min Normal 50-250 [facility] Comment on above: Performed By: #### L 500.4050, L503.0106, L503.6030 ####[facility] [address] [place], [address] GAP 13 Normal 5-15 [facility] Comment on above: Performed By: #### L 500.4050, L503.0106, L503.6030 ####[facility] [address] [place], [address] GFR/1.73 sq M.predicted among non-blacks MDRD (S/P/Bld) [Vol rate/Area] 85 mL/min/{1.73_m2} Normal >60 [facility] Comment on above: Result Comment: mL/m in/1.73m2 CKD-EPI Creatinine Equation (2020) Performed By: #### L 500.4050, L503.0106, L503.6030 ####[facility] [address] [place], [address] Globulin (S) [Mass/Vol] 2.7 g/dL Normal 2.2-4.2 [facility] Comment on above: Performed By: #### L 500.4050, L503.0106, L503.6030 ####[facility] [address] [place], [address] Glucose [Mass/Vol] 110 mg/dL High 70-99 [facility] Comment on above: Performed By: #### L 500.4050, L503.0106, L503.6030 ####[facility] [address] [place], [address] Potassium [Moles/Vol] 3.1 mmol/L Low 3.3-5.[address] [facility] Comment on above: Performed By: #### L 500.4050, L503.0106, L503.6030 ####[facility] [address] [place], [address] Sodium [Moles/Vol] 141 mmol/L Normal 133-145 [facility] Comment on above: Performed By: #### L 500.4050, L503.0106, L503.6030 ####[facility] [address] [place], [address] T PROT 6.5 g/dL Normal 5.9-8.4 [facility] Comment on above: Performed By: #### L 500.4050, L503.0106, L503.6030 ####[facility] [id number] [place], [address] Urea nitrogen [Mass/Vol] 8 mg/dL Normal 4-19 [facility] Comment on above: Performed By: #### L 500.4050, L503.0106, L503.6030 ####[facility] [id number] [place], [address] Ferritinon 11-09-2024 Ferritin [Mass/Vol] 243 ng/mL Normal 22-378 [facility] Comment on above: Performed By: #### L 503.6550, L100.0100 ####[facility] [address] [place], [address] Iron measurement (mass/mass) Ordered By: Anayeli Win on 11-09-2024 Iron (Unsp spec) [Mass/Mass] 88 ug/dL 50-170 [facility] Iron+Iron Binding Capacityon 11-09-2024 Iron [Mass/Vol] 88 ug/dL Normal 50-170 [facility] Comment on above: Performed By: #### L 500.4050, L503.0106, L503.6030 ####[facility] [address] [place], [address] IRON SATURATION 31.0 Normal 13-59 [facility] Comment on above: Performed By: #### L 500.4050, L503.0106, L503.6030 ####[facility] [address] [place], [address] TIBC 281 ug/dL Normal 250-450 [facility] Comment on above: Performed By: #### L 500.4050, L503.0106, L503.6030 ####[facility] [address] [place], [address] UIBC 193 ug/dL Low 228-428 [facility] Comment on above: Performed By: #### L 500.4050, L503.0106, L503.6030 ####[facility] [address] [place], [address] No Panel InformationOrdered By: Anayeli Win on 11-09-2024 Unsaturated Iron Binding Capacity 193 ug/dL Low 228-428 [facility] 193 ug/dL Low 228-428 [facility] Oncology Visit Reporton 10-18 Oncology Visit Report Normal [facility] Review by pathologistOrdered By: Anayeli Win on 11-09-2024 Pathologist review Luiz (Unsp spec) [Interp] Reviewed [facility] Comment on above: Previous reported re sult: Kathrin meadows Edited by: ADAL on 11/10/24:1131LEUKOPENIA WITH ABSOLUTE NEUTROPENIA AND LYMPHOPENIA.NORMOCYTIC HYPOCHROMIC ANEMIA WITH MILD ANISOCYTOSIS.ADEQUATE PLATELETS.Sydnee Valencia MD 11/10/2024 AMENDED REPORT 11/10/24 1131 PATH REV previously reported as: Kathrin meadows Serum or plasma ferritin fidel surement (mass/volume)Ordered By: Anayeli Win on 11-09-2024 Ferritin [Mass/Vol] 243 ng/mL 22-378 [facility] Serum or plasma iron saturat ion measurement (mass fraction)Ordered By: Anayeli Win on 11-09-2024 Iron saturation [Mass fraction] 31.0 % 13-59 [facility] Total cell countOrdered By: Anayeli Win on 11-09-2024 Cells counted [employer] (Bld/Tiss) [#] 100 MANUAL DIFF [facility] Vitamin B12on 11-09-2024 Cobalamin (Vitamin B12) [Mass/Vol] 2391 pg/mL High 180-914 [facility] Comment on above: Performed By: #### L 500.4050, L503.0106, L503.6030 ####[facility] [address] 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 She had [...] would like to establish with a senior underwriter in [place]. Patient is monitoring her BP at home, and will call her daughter, ( who is at work now) if BP drops. She will contactthe oncology physician assistant to see if she can arrange Cardiology to see her tomorrow while at the infusion center. She will keep us updated. Normal [facility] 36 Daughter called back she spoke to oncologist and oncologist is more comfortable if we deal with this. Normal [facility] 36 I spoke with maria del rosario gramajo pt having increase BOWMAN/ up 7 #s/b/l lower extremity edema after having 2 chemo treatments. Daughter states chemo staff said to call senior underwriter. She is not sure if oncologist or his office is aware. I asked her to check with them first regarding the symptoms she is having. The care will be directed by them. She will call back after she makes sure the oncologist is aware. Normal [facility] 36 Daughter calling pt is new to chemo having second treatment today. She has gained 7# since yesterday. Chemo staff wanted pt to call senior underwriter pt has edema in ankles. Normal [facility] CBC W/Diff, Automatedon 04- Absolute Lymph 1.00 X10 3/uL Normal 0.83-4.51 [facility] Comment on above: Performed By: #### L 100.0100, L500.4050 ####[facility] [address] [place], [address] Absolute Neut 2.9 X10 3/uL Normal 2.0-7.7 [facility] Comment on above: Performed By: #### L 100.0100, L500.4050 ####[facility] [address] [place], [address] Basophils/100 WBC (Bld) 0.5 % Normal 0-1 [facility] Comment on above: Performed By: #### L 100.0100, L500.4050 ####[facility] [address] [place], [address] Eosinophils/100 WBC (Bld) 0.7 % Normal 0-5 [facility] Comment on above: Performed By: #### L 100.0100, L500.4050 ####[facility] [address] [place], [address] Erythrocyte distribution width (RBC) [Ratio] 16.6 % High 11.6-14.6 [facility] Comment on above: Performed By: #### L 100.0100, L500.4050 ####[facility] [address] [place], [address] Hematocrit (Bld) [Volume fraction] 32.5 % Low 37-47 [facility] Comment on above: Performed By: #### L 100.0100, L500.4050 ####[facility] [address] [place], [address] Hemoglobin (Bld) [Mass/Vol] 10.2 g/dL Low 12.0-15.0 [facility] Comment on above: Performed By: #### L 100.0100, L500.4050 ####[facility] [address] [place], [address] IG% 0.200 Normal 0.0-0.9 [facility] Comment on above: Result Comment: IG% - Immature Granulocytes (promyelocytes, myelocytes andmetamyelocytes) > 1% indicates that a LEFT SHIFT is Present. Performed By: #### L 100.0100, L500.4050 ####[facility] [address] [place], [address] Lymphocytes/100 WBC (Bld) 22.6 % Normal 19-41 [facility] Comment on above: Performed By: #### L 100.0100, L500.4050 ####[facility] [address] [place], [address] MCH (RBC) [Entitic mass] 26.4 pg Low 27.0-32.0 [facility] Comment on above: Performed By: #### L 100.0100, L500.4050 ####[facility] [address] [place], [address] MCHC (RBC) [Mass/Vol] 31.4 g/dL Low 32-[address] [facility] Comment on above: Performed By: #### L 100.0100, L500.4050 ####[facility] [address] [place], [address] MCV (RBC) [Entitic vol] 84.0 fL Normal 81-99 [facility] Comment on above: Performed By: #### L 100.0100, L500.4050 ####[facility] [address] [place], [address] Monocytes/100 WBC (Bld) 11.7 % High 0-10 [facility] Comment on above: Performed By: #### L 100.0100, L500.4050 ####[facility] [address] [place], [address] Neutrophils/100 WBC (Bld) 64.3 % Normal 47-70 [facility] Comment on above: Performed By: #### L 100.0100, L500.4050 ####[facility] [address] [place], [address] Nucleated RBC (Bld) [#/Vol] 0 10*3/uL Normal 0-5 [facility] Comment on above: Performed By: #### L 100.0100, L500.4050 ####[facility] [address] [place], [address] Platelet mean volume (Bld) [Entitic vol] 8.5 fL Normal 6.2-12.0 [facility] Comment on above: Performed By: #### L 100.0100, L500.4050 ####[facility] [address] [place], [address] Platelets (Bld) [#/Vol] 284 10*3/uL Normal 150-450 [facility] Comment on above: Performed By: #### L 100.0100, L500.4050 ####[facility] [address] [place], [address] RBC (Bld) [#/Vol] 3.87 10*6/uL Low 4.2-5.4 [facility] Comment on above: Performed By: #### L 100.0100, L500.4050 ####[facility] [address] [place], [address] RDW SD 50.7 fl High 35.1-43.9 [facility] Comment on above: Performed By: #### L 100.0100, L500.4050 ####[facility] [address] [place], [address] WBC (Bld) [#/Vol] 4.4 10*3/uL Normal 4.4-11.0 [facility] Comment on above: Performed By: #### L 100.0100, L500.4050 ####[facility] [address] [place], [address] Absolute Neut Normal 2.0-7.7 [facility] Comment on above: Result Comment: @DUP LICATE ORDER Performed By: #### L 500.4050, L100.0100 ####[facility] [address] [place], [address] HCT Normal 37-47 [facility] Comment on above: Result Comment: @DUP LICATE ORDER Performed By: #### L 500.4050, L100.0100 ####[facility] [address] [place], [address] HGB Normal 12.0-15.0 [facility] Comment on above: Result Comment: @DUP LICATE ORDER Performed By: #### L 500.4050, L100.0100 ####[facility] [address] [place], [address] MCH Normal 27.0-32.0 [facility] Comment on above: Result Comment: @DUP LICATE ORDER Performed By: #### L 500.4050, L100.0100 ####[facility] [address] [place], [address] MCHC Normal 32-36 [facility] Comment on above: Result Comment: @DUP LICATE ORDER Performed By: #### L 500.4050, L100.0100 ####[facility] [address] [place], [address] MCV Normal 81-99 [facility] Comment on above: Result Comment: @DUP LICATE ORDER Performed By: #### L 500.4050, L100.0100 ####[facility] [address] [place], [address] NEUT% Normal 47-70 [facility] Comment on above: Result Comment: @DUP LICATE ORDER Performed By: #### L 500.4050, L100.0100 ####[facility] [address] [place], [address] PLT Normal 150-450 [facility] Comment on above: Result Comment: @DUP LICATE ORDER Performed By: #### L 500.4050, L100.0100 ####[facility] [address] [place], [address] RBC Normal 4.2-5.4 [facility] Comment on above: Result Comment: @DUP LICATE ORDER Performed By: #### L 500.4050, L100.0100 ####[facility] [address] [place], [address] RDW CV Normal 11.6-14.6 [facility] Comment on above: Result Comment: @DUP LICATE ORDER Performed By: #### L 500.4050, L100.0100 ####[facility] [address] [place], [address] RDW SD Normal 35.1-43.9 [facility] Comment on above: Result Comment: @DUP LICATE ORDER Performed By: #### L 500.4050, L100.0100 ####[facility] [address] [place], [address] WBC Normal 4.4-11.0 [facility] Comment on above: Result Comment: @DUP LICATE ORDER Performed By: #### L 500.4050, L100.0100 ####[facility] [address] [place], [address] Comprehensive Metabolic Prof ilon 10-31-2024 Albumin [Mass/Vol] 3.6 g/dL Normal 3.4-4.8 [facility] Comment on above: Performed By: #### L 100.0100, L500.4050 ####[facility] [address] [place], [address] Albumin/Globulin [Mass ratio] 1.3 {ratio} Normal 0.9-2.4 [facility] Comment on above: Performed By: #### L 100.0100, L500.4050 ####[facility] [address] [place], [address] ALK PHOS 63 U/L Normal 35-104 [facility] Comment on above: Performed By: #### L 100.0100, L500.4050 ####[facility] [address] [place], [address] ALT [Catalytic activity/Vol] 11 U/L Normal <=34 [facility] Comment on above: Performed By: #### L 100.0100, L500.4050 ####[facility] [address] [place], [address] AST [Catalytic activity/Vol] 17 U/L Normal <=31 [facility] Comment on above: Performed By: #### L 100.0100, L500.4050 ####[facility] [address] [place], [address] Bilirubin [Mass/Vol] 0.17 mg/dL Normal 0.00-1.30 [facility] Comment on above: Performed By: #### L 100.0100, L500.4050 ####[facility] [address] [place], [address] BUN/CRE 19.1 RATIO Normal 10-20 [facility] Comment on above: Performed By: #### L 100.0100, L500.4050 ####[facility] [address] [place], [address] Calcium [Mass/Vol] 9.2 mg/dL Normal 7.6-11.0 [facility] Comment on above: Performed By: #### L 100.0100, L500.4050 ####[facility] [address] [place], [address] Chloride [Moles/Vol] 107 mmol/L Normal 98-108 [facility] Comment on above: Performed By: #### L 100.0100, L500.4050 ####[facility] [address] [place], [address] CO2 [Moles/Vol] 26.3 mmol/L Normal 21.0-32.0 [facility] Comment on above: Performed By: #### L 100.0100, L500.4050 ####[facility] [address] [place], [address] Creatinine [Mass/Vol] 0.71 mg/dL Normal 0.70-1.[address] [facility] Comment on above: Performed By: #### L 100.0100, L500.4050 ####[facility] [address] [place], [address] ECRCL 61.80 ml/min Normal 50-250 [facility] Comment on above: Performed By: #### L 100.0100, L500.4050 ####[facility] [address] [place], [address] GAP 11 Normal 5-15 [facility] Comment on above: Performed By: #### L 100.0100, L500.4050 ####[facility] [address] [place], [address] GFR/1.73 sq M.predicted among non-blacks MDRD (S/P/Bld) [Vol rate/Area] 91 mL/min/{1.73_m2} Normal >60 [facility] Comment on above: Result Comment: mL/m in/1.73m2 CKD-EPI Creatinine Equation (2020) Performed By: #### L 100.0100, L500.4050 ####[facility] [address] [place], [address] Globulin (S) [Mass/Vol] 2.9 g/dL Normal 2.2-4.2 [facility] Comment on above: Performed By: #### L 100.0100, L500.4050 ####[facility] [address] [place], [address] Glucose [Mass/Vol] 106 mg/dL High 70-99 [facility] Comment on above: Performed By: #### L 100.0100, L500.4050 ####[facility] [address] [place], [address] Potassium [Moles/Vol] 3.7 mmol/L Normal 3.3-5.[address] [facility] Comment on above: Performed By: #### L 100.0100, L500.4050 ####[facility] [address] [place], [address] Sodium [Moles/Vol] 144 mmol/L Normal 133-145 [facility] Comment on above: Performed By: #### L 100.0100, L500.4050 ####[facility] [address] [place], [address] T PROT 6.5 g/dL Normal 5.9-8.4 [facility] Comment on above: Performed By: #### L 100.0100, L500.4050 ####[facility] [address] [place], [address] Urea nitrogen [Mass/Vol] 14 mg/dL Normal 4-19 [facility] Comment on above: Performed By: #### L 100.0100, L500.4050 ####[facility] [address] [place], [address] ALB Normal 3.4-4.8 [facility] Comment on above: Result Comment: @DUP LICATE ORDER Performed By: #### L 500.4050, L100.0100 ####[facility] [address] [place], [address] ALK PHOS Normal 35-104 [facility] Comment on above: Result Comment: @DUP LICATE ORDER Performed By: #### L 500.4050, L100.0100 ####[facility] [address] [place], [address] ALT Normal <=34 [facility] Comment on above: Result Comment: @DUP LICATE ORDER Performed By: #### L 500.4050, L100.0100 ####[facility] [address] [place], [address] AST Normal <=31 [facility] Comment on above: Result Comment: @DUP LICATE ORDER Performed By: #### L 500.4050, L100.0100 ####[facility] [address] [place], [address] BUN Normal 4-19 [facility] Comment on above: Result Comment: @DUP LICATE ORDER Performed By: #### L 500.4050, L100.0100 ####[facility] [address] [place], [address] BUN/CRE Normal 10-20 [facility] Comment on above: Result Comment: @DUP LICATE ORDER Performed By: #### L 500.4050, L100.0100 ####[facility] [address] [place], [address] Calcium Normal 7.6-11.0 [facility] Comment on above: Result Comment: @DUP LICATE ORDER Performed By: #### L 500.4050, L100.0100 ####[facility] [address] [place], [address] CL Normal 98-108 [facility] Comment on above: Result Comment: @DUP LICATE ORDER Performed By: #### L 500.4050, L100.0100 ####[facility] [address] [place], [address] CO2 Normal 21.0-32.0 [facility] Comment on above: Result Comment: @DUP LICATE ORDER Performed By: #### L 500.4050, L100.0100 ####[facility] [address] [place], [address] CREAT,SERUM Normal 0.70-1.20 [facility] Comment on above: Result Comment: @DUP LICATE ORDER Performed By: #### L 500.4050, L100.0100 ####[facility] [address] [place], [address] eGFR Normal >60 [facility] Comment on above: Result Comment: @DUP LICATE ORDER Performed By: #### L 500.4050, L100.0100 ####[facility] [address] [place], [address] GAP Normal 5-15 [facility] Comment on above: Result Comment: @DUP LICATE ORDER Performed By: #### L 500.4050, L100.0100 ####[facility] [address] [place], [address] GLU Normal 70-99 [facility] Comment on above: Result Comment: @DUP LICATE ORDER Performed By: #### L 500.4050, L100.0100 ####[facility] [address] [place], [address] Potassium Normal 3.3-5.1 [facility] Comment on above: Result Comment: @DUP LICATE ORDER Performed By: #### L 500.4050, L100.0100 ####[facility] [address] [place], [address] T BILI Normal 0.00-1.30 [facility] Comment on above: Result Comment: @DUP LICATE ORDER Performed By: #### L 500.4050, L100.0100 ####[facility] [address] [place], [address] T PROT Normal 5.9-8.4 [facility] Comment on above: Result Comment: @DUP LICATE ORDER Performed By: #### L 500.4050, L100.0100 ####[facility] [address] [place], [address] Comprehensive Metabolic Profil Normal 133-145 [facility] Comment on above: Result Comment: @DUP LICATE ORDER Performed By: #### L 500.4050, L100.0100 ####[facility] [address] [place], [address] Oncology Visit Reporton 10-17 Oncology Visit Report Normal [facility] 36on 10-27-2024 36 Reviewed clinisync a nd confirmed that patient ws able to establish with [facility] on 10/26/24. Beginning treatment 10/31/24. Normal [facility] Surgery Visit Reporton 10-27 Surgery Visit Report Normal [facility] 36on 10-26-2024 36 Pt's Daughter, María prince requesting POC device for he Mother. Explains her Mother has multiple Dr's appointments. Just today, her mother used 3 tanks. While working on TE, had contacted Pt's Daughter for more information , Glenny explained, She just talked to [employer] and decided to stick with tanks. Normal [facility] Office Visiton 10-26-2024 Follow-up visit [id number] Karina Fernando 1950 F Date Provider Department Center 10/26/2024 JOSELYN [facility] END None Family History Problem Relation Age of Onset Cancer Mother Cancer Father No Known Problems Sister No Known Problems Brother Heart disease Brother Family Status - Relation Status Age at Mother Father Sister Alive Brother Alive Brother Alive Level of Service:88370 ID OFFICE/OUTPATIENT NEW HIGH MDM 60 MINUTES Reason for Visit and Comments: New Patient [542] Thyroid Problem [110] - Thyroid nodule Normal [facility] Oncology Visit Reporton 10-17 Oncology Visit Report Normal [facility] Progress Noteon 10-26-2024 Progress Note . ENDOCRINOLOGY [address] [place] [address] Dept: [phone] Dept Visit type: New patient Reason for [...] Tramadol Hives, Itching and Nausea And Vomiting Hydrochlorothiazide-Tria mterene Rash Current Outpatient Medications: albuterol (Ventolin HFA) [...] capsule by mouth daily., Disp: , Rfl: Wyola-3 Fatty Acids (OMEGA 3 500 PO), Take [...] Cancer Mother (more content not included)... Normal [facility] Oncology Visit Reporton Oncology Visit Report Normal [facility] 36on 10-24-2024 36 Case reviewed - adva nced small cell lung cancer *The patient's OARRS report was obtained and reviewed.* Normal [facility] [address] Fortune, pt needs a prescription sent for percocet 5/325mg, 1 tab Q6 hours PRN. Normal [facility] 36 Received call from Alee, [employer] Helper at [facility]. Per Alee, they are aware patient now has oncology appt in [place], but they are tryoing to have her seen at [place] sooner. Right faxed MRI brain and PET reports to providers at [place] in case she returns to them for oncology care. Also requested images be pushed to provider. [facility] Progress Noteon 10-24-2024 Progress Note OARRS reviewed Normal [facility] Progress Note [facility] CARDIOVASCULAR & THORACIC SURGERY [address] [facility] [address] Dept: [phone] Dept Loc: [phone] Patient was identified and seen today via [...] that they are currently in the state of [place]. If the patient is a minor, permission [...] etiology. Per note, pt had presented to [place] ED in August 2023 for dyspnea. CTA [...] follow with her oncologist Dr. Chance in [place]. MRI brain on 10/17/24 was normal. PET [...] increased FD (more content not included)... Normal [facility] 12 Lead EKGon 10-21-2024 12 Lead EKG Normal [facility] Absolute lymphocyte countOrd ered By: Tay Dumont on 10-21-2024 Lymphocytes Auto (Unsp spec) [#/Vol] 0.90 10*3/uL 0.83-4.51 [facility] Absolute neutrophil countOrd ered By: Tay Dumont on 10-21-2024 Neutrophils (Bld) [#/Vol] 4.0 10*3/uL 2.0-7.7 [facility] Anion gap in Serum or Plasma Ordered By: Tay Dumont on 10-21-2024 Anion gap [Moles/Vol] 14 mmol/L 5-[address] [facility] Automated lymphocyte count a s percentage of total leukocytesOrdered By: Tay Dumont on 10-21-2024 Lymphocytes/100 WBC Auto (Unsp spec) 16.1 % Low 19-41 [facility] BUN/creatinine ratioOrdered By: Tay Dumont on 10-21-2024 Urea nitrogen/Creatinine [Mass ratio] 9.8 mg/mg Low 10-20 [facility] Basic Metabolic Profile (BMP )on 10-21-2024 BUN/CRE 9.8 RATIO Low 10- [facility] Comment on above: Performed By: #### L 500.2500, L100.0100 ####[facility] [address] [place], [address] Calcium [Mass/Vol] 9.2 mg/dL Normal 7.6-11.0 [facility] Comment on above: Performed By: #### L 500.2500, L100.0100 ####[facility] [address] [place], [address] Chloride [Moles/Vol] 102 mmol/L Normal 98-108 [facility] Comment on above: Performed By: #### L 500.2500, L100.0100 ####[facility] [address] [place], [address] CO2 [Moles/Vol] 24.0 mmol/L Normal 21.0-32.0 [facility] Comment on above: Performed By: #### L 500.2500, L100.0100 ####[facility] [address] [place], [address] Creatinine [Mass/Vol] 1.02 mg/dL Normal 0.70-1.[address] [facility] Comment on above: Performed By: #### L 500.2500, L100.0100 ####[facility] [address] [place], [address] ECRCL 48.29 ml/min Low 50-250 [facility] Comment on above: Performed By: #### L 500.2500, L100.0100 ####[facility] [address] [place], [address] GAP 14 Normal 5-15 [facility] Comment on above: Performed By: #### L 500.2500, L100.0100 ####[facility] [address] [place], [address] GFR/1.73 sq M.predicted among non-blacks MDRD (S/P/Bld) [Vol rate/Area] 58 mL/min/{1.73_m2} Low >60 [facility] Comment on above: Result Comment: mL/m in/1.73m2 CKD-EPI Creatinine Equation (2020) Performed By: #### L 500.2500, L100.0100 ####[facility] [address] [place], [address] Glucose [Mass/Vol] 99 mg/dL Normal 70-99 [facility] Comment on above: Performed By: #### L 500.2500, L100.0100 ####[facility] [address] [place], [address] Potassium [Moles/Vol] 3.7 mmol/L Normal 3.3-5.[address] [facility] Comment on above: Performed By: #### L 500.2500, L100.0100 ####[facility] [address] [place], [address] Sodium [Moles/Vol] 140 mmol/L Normal 133-145 [facility] Comment on above: Performed By: #### L 500.2500, L100.0100 ####[facility] [address] [place], [address] Urea nitrogen [Mass/Vol] 10 mg/dL Normal 4-19 [facility] Comment on above: Performed By: #### L 500.2500, L100.0100 ####[facility] [address] [place], [address] Basophil percentageOrdered B y: Tay Dumotn on 10-21-2024 Basophils/100 WBC (Bld) 0.2 % 0-1 [facility] CBC W/Diff, Automatedon Absolute Lymph 0.90 X10 3/uL Normal 0.83-4.51 [facility] Comment on above: Performed By: #### L 500.2500, L100.0100 ####[facility] [address] [place], [address] Absolute Neut 4.0 X10 3/uL Normal 2.0-7.7 [facility] Comment on above: Performed By: #### L 500.2500, L100.0100 ####[facility] [address] [place], [address] Basophils/100 WBC (Bld) 0.2 % Normal 0-1 [facility] Comment on above: Performed By: #### L 500.2500, L100.0100 ####[facility] [address] [place], [address] Eosinophils/100 WBC (Bld) 0.2 % Normal 0-5 [facility] Comment on above: Performed By: #### L 500.2500, L100.0100 ####[facility] [address] [place], [address] Erythrocyte distribution width (RBC) [Ratio] 17.9 % High 11.6-14.6 [facility] Comment on above: Performed By: #### L 500.2500, L100.0100 ####[facility] [address] [place], [address] Hematocrit (Bld) [Volume fraction] 37.6 % Normal 37-47 [facility] Comment on above: Performed By: #### L 500.2500, L100.0100 ####[facility] [address] [place], [address] Hemoglobin (Bld) [Mass/Vol] 11.7 g/dL Low 12.0-15.0 [facility] Comment on above: Performed By: #### L 500.2500, L100.0100 ####[facility] [address] [place], [address] IG% 0.400 Normal 0.0-0.9 [facility] Comment on above: Result Comment: IG% - Immature Granulocytes (promyelocytes, myelocytes andmetamyelocytes) > 1% indicates that a LEFT SHIFT is Present. Performed By: #### L 500.2500, L100.0100 ####[facility] [address] [place], [address] Lymphocytes/100 WBC (Bld) 16.1 % Low 19-41 [facility] Comment on above: Performed By: #### L 500.2500, L100.0100 ####[facility] [address] [place], [address] MCH (RBC) [Entitic mass] 25.7 pg Low 27.0-32.0 [facility] Comment on above: Performed By: #### L 500.2500, L100.0100 ####[facility] [address] [place], [address] MCHC (RBC) [Mass/Vol] 31.1 g/dL Low 32-[address] [facility] Comment on above: Performed By: #### L 500.2500, L100.0100 ####[facility] [address] [place], [address] MCV (RBC) [Entitic vol] 82.6 fL Normal 81-99 [facility] Comment on above: Performed By: #### L 500.2500, L100.0100 ####[facility] [address] [place], [address] Monocytes/100 WBC (Bld) 12.4 % High 0-10 [facility] Comment on above: Performed By: #### L 500.2500, L100.0100 ####[facility] [address] [place], [address] Neutrophils/100 WBC (Bld) 70.7 % High 47-70 [facility] Comment on above: Performed By: #### L 500.2500, L100.0100 ####[facility] [address] [place], [address] Nucleated RBC (Bld) [#/Vol] 0 10*3/uL Normal 0-5 [facility] Comment on above: Performed By: #### L 500.2500, L100.0100 ####[facility] [address] [place], [address] Platelet mean volume (Bld) [Entitic vol] 8.6 fL Normal 6.2-12.0 [facility] Comment on above: Performed By: #### L 500.2500, L100.0100 ####[facility] [address] [place], [address] Platelets (Bld) [#/Vol] 335 10*3/uL Normal 150-450 [facility] Comment on above: Performed By: #### L 500.2500, L100.0100 ####[facility] [address] [place], [address] RBC (Bld) [#/Vol] 4.55 10*6/uL Normal 4.2-5.4 [facility] Comment on above: Performed By: #### L 500.2500, L100.0100 ####[facility] [address] [place], [address] RDW SD 53.9 fl High 35.1-43.9 [facility] Comment on above: Performed By: #### L 500.2500, L100.0100 ####[facility] [address] [place], [address] WBC (Bld) [#/Vol] 5.6 10*3/uL Normal 4.4-11.0 [facility] Comment on above: Performed By: #### L 500.2500, L100.0100 ####[facility] [address] [place], [address] Carbon dioxide, total [Moles /volume] in Central venous bloodOrdered By: Tay Dumont on 10-21-2024 CO2 [Moles/Vol] 24.0 mmol/L 21.0-32.0 [facility] Chest 1 View (Portable)on Chest 1 View (Portable) Normal [facility] Chloride assayOrdered By: Dakota Dumont on 10-21-2024 Chloride [Moles/Vol] 102 mmol/L 98-108 [facility] Emergency Department Summary on 10-21-2024 Emergency Department Summary Normal [facility] Eosinophil percentageOrdered By: Tay Dumont on 10-21-2024 Eosinophils/100 WBC (Bld) 0.2 % 0-5 [facility] Erythrocyte distribution wid th (RBC) [Ratio]Ordered By: Tay Dumont on 10-21-2024 Erythrocyte distribution width (RBC) [Entitic vol] 53.9 fL High 35.1-43.9 [facility] Erythrocyte distribution wid th ratioOrdered By: Tay Dumont on 10-21-2024 Erythrocyte distribution width (RBC) [Ratio] 17.9 % High 11.6-14.6 [facility] Erythrocyte distribution wid th standard deviationOrdered By: Tay Dumont on 10-21-2024 Erythrocyte distribution width (RBC) [Ratio] 53.9 fl High 35.1-43.9 [facility] Estimation of creatinine nikki aranceOrdered By: Tay Dumont on 10-21-2024 Estimated Creatinine Clearance Calc 48.29 ml/min Low 50-250 [facility] GFR/1.73 sq M.predicted ty g non-blacks MDRD (S/P/Bld) [Vol rate/Area]Ordered By: Tay Dumont on 10-21-2024 Estimated GFR (MDRD) Non-Af Amer 58 Low >60 [facility] Comment on above: mL/min/1.73m2 CKD-EP I Creatinine Equation (2020) Glomerular filtration rate ( GFR) estimation/1.73 sq m using serum, plasma, or whole bOrdered By: Tay Dumont on 10-21-2024 GFR/1.73 sq M.predicted among non-blacks MDRD (S/P/Bld) [Vol rate/Area] 58 mL/min/{1.73_m2} Low >60 [facility] Comment on above: mL/min/1.73m2 CKD-EP I Creatinine Equation (2020) Hematocrit Auto (Bld) [Volum e fraction]Ordered By: Tay Dumont on 10-21-2024 Hematocrit (Bld) [Volume fraction] 37.6 % 37-47 [facility] Hemoglobin measurementOrdere d By: Tay Dumont on 10-21-2024 Hemoglobin (Bld) [Mass/Vol] 11.7 g/dL Low 12.0-15.0 [facility] Immature granulocytes/100 WB C Auto (Bld)Ordered By: Tay Dumont on 10-21-2024 Immature granulocytes/100 WBC (Bld) 0.400 % 0.0-0.9 [facility] Comment on above: IG% - Immature Granu locytes (promyelocytes, myelocytes and metamyelocytes) > 1% indicates that a LEFT SHIFT is Present. Lymphocytes Auto (Unsp spec) [#/Vol]Ordered By: Tay Dumont on 10-21-2024 Lymphocytes (Bld) [#/Vol] 0.90 10*3/uL 0.83-4.51 [facility] Lymphocytes/100 WBC Auto (Un sp spec)Ordered By: Tay Dumont on 10-21-2024 Lymphocytes/100 WBC (Bld) 16.1 % Low 19-41 [facility] MCV (mean corpuscular volume ) determinationOrdered By: Tay Dumont on 10-21-2024 MCV (RBC) [Entitic vol] 82.6 fL 81-99 [facility] Mean corpuscular hemoglobin (MCH) determinationOrdered By: Tay Dumont on 10-21-2024 MCH (RBC) [Entitic mass] 25.7 pg Low 27.0-32.0 [facility] Mean corpuscular hemoglobin concentration (MCHC) determinationOrdered By: Tay Dumont on 10-21-2024 MCHC (RBC) [Mass/Vol] 31.1 g/dL Low 32-[address] [facility] Mean platelet volume determi nationOrdered By: Tay Dumont on 10-21-2024 Platelet mean volume (Bld) [Entitic vol] 8.6 fL 6.2-12.0 [facility] Monocyte percentageOrdered B y: Tay Dumont on 10-21-2024 Monocytes/100 WBC (Bld) 12.4 % High 0-10 [facility] Neutrophil percentageOrdered By: Tay Dumont on 10-21-2024 Neutrophils/100 WBC (Bld) 70.7 % High 47-70 [facility] Nucleated red blood cell per centageOrdered By: Tay Dumont on 10-21-2024 Nucleated RBC/100 WBC (Bld) [Ratio] 0 % 0-5 [facility] Platelet countOrdered By: Dakota Dumont on 10-21-2024 Platelets (Bld) [#/Vol] 335 10*3/uL 150-450 [facility] Potassium (Unsp spec) [Mass/ Vol]Ordered By: Tay Dumont on 10-21-2024 Potassium [Moles/Vol] 3.7 mmol/L 3.3-5.[address] [facility] Potassium measurement (mass/ volume)Ordered By: Tay Dumont on 10-21-2024 Potassium (Unsp spec) [Mass/Vol] 3.7 mmol/L 3.3-5.1 [facility] RBC Auto (Bld) [#/Vol]Ordere d By: Tay Dumont on 10-21-2024 RBC (Bld) [#/Vol] 4.55 10*6/uL 4.2-5.4 [facility] Serum creatinine measurement (mass/volume)Ordered By: Tay Dumont on 10-21-2024 Creatinine [Mass/Vol] 1.02 mg/dL 0.70-1.[address] [facility] Serum glucose measurement (m ass/volume)Ordered By: Tay Dumont on 10-21-2024 Glucose [Mass/Vol] 99 mg/dL 70-99 [facility] Serum or plasma calcium usman urement (mass/volume)Ordered By: Tay Dumont on 10-21-2024 Calcium [Mass/Vol] 9.2 mg/dL 7.6-11.0 [facility] Serum or plasma urea nitroge n measurement (mass/volume)Ordered By: Tay Dumont on 10-21-2024 Urea nitrogen [Mass/Vol] 10 mg/dL 4-19 [facility] Sodium levelOrdered By: Tay Dumont on 10-21-2024 Sodium [Moles/Vol] 140 mmol/L 133-145 [facility] White blood cell (WBC) count Ordered By: Tay Dumont on 10-21-2024 WBC (Bld) [#/Vol] 5.6 10*3/uL 4.4-11.0 [facility] Progress Noteon 10-20-2024 Progress Note This patient has bee n referred to the oncology team. The staging PET scan should be addressed by the multidisciplinary team. Giving him the diagnosis and extent of disease, surgical resection is not indicated. [facility] 36on 10-18-2024 36 Pt daughter notified [place] [address] Script sent [place] [address] Navigator received callback from patient's daughter Glenny. Patient's daughter reports that since we are able to expedite MRI and PET scan, oncology appointment has been moved up to 10/31/2024, but this is just tentative appointment as her oncology provider in [place] is out of town and may not be back until 11/06/2024. Daughter would like Dr. 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 Normal [facility] 36 Pt daughter called a nd states that pt is claustrophobic. Dr. Fortune ordered a PET scan which is scheduled on 10/20/24. She is requesting something to help with anxiety prior to scan. She states what she was given for MRI brain worked great. Pharmacy confirmed. Please advise. Previous prescription was Xanax 0.5 mg tablet. [facility] 36on 10-17-2024 36 Navigator contacted patient's daughter by phone. They would like first available PET scan at any location. She is currently scheduled 10/30/24. Moved up PET scan appointment to Faxed records including path report, thoracentesis report, thoracic conference recommendations, CTS and pulmonary and cardiology consults to patient's regular oncologist, Dr. Dunham and oil spot washer Rhiannon Georges in [place]. Patient has medical oncology appointment 11/06/24 but will try to move appointment sooner after PET scan. Navigator will send PET and MRI reports to providers once final . [facility] 37on 10-17-2024 37 YOUR APPOINTMENT TOSusy RUELAS WAS WITH THE [facility] LUNG NODULE CLINIC, COPD CLINIC, PULMONARY AND SLEEP MEDICINE OFFICE. PLEASE CALL OUR OFFICE AT [phone] IF YOU HAVE NOT RECEIVED YOUR TEST [...] to make improvements. COVID-19 VACCINATION INFORMATION: PH. [phone] [email or web address] ACCINE [facility] Central Scheduling [phone] [facility] Sleep Scheduling [phone] [facility] Office Visiton 10-17-2024 Follow-up visit [id number] Karina Fernando 1950 F Date Provider Department Center 10/17/2024 Edwin YUAN[facility] None Family History Problem Relation Age of Onset Cancer Mother Cancer Father No Known Problems Sister No Known Problems Brother Heart disease Brother Family Status - Relation Status Age at Mother Father Sister Alive Brother Alive Brother Alive Level of Service:[id number] ID OFFICE/OUTPATIENT ESTABLISHED MOD MDM 30 MIN Reason for Visit and Comments: Follow-up [096031] Normal [facility] Progress Noteon 10-17-2024 Progress Note MG, Pulmonary [facility] [address] [place] [id number] Pulmonary Patient Visit 10/17/2024 Referring Physician: TU HECTOR DO Reason for Referral: SOB 10/03/24 History of Present Illness Karina Fernando is a 73 y.o. F with history of recurrent sinus infections, COPD on symbicort/albuterol, HTN who presented for a left hilar mass. Stated that in May she began having shortness of breath which worsened until she went to the ER in [place] in August. Found on CT with a left hilar mass, left upper lobe pleural-based mass, and moderate pericardial effusion. Evaluated by oncology and recommended for PET/CT, MRI brain, and biopsy. Established with pulmonology and had been planned for EBUS in [place] but canceled after TTE demonstrated a right [...] Previously normal 10/17/24 Patient was hospitalized in [place] ER for worsening pain and shortness of [...] Medications Medication Documentation Review Audit Reviewed by Yaritza Johnson DO (Physician) on 10/17/24 at 1226 Medication Order Taking? Sig Documenting Provider Last Dose Status acetaminophen (Tylenol) 325 MG tablet [id number] Take 2 tablets (650 mg) by mouth every 6 hours as needed for mild pain (1-3) or fever (For temp greater than 100.4 F (38 C)) for up to 10 days. Patient not taking: Reported on 10/09/2024 Jeffrey Horne DO 10/16/24 2359 albuterol (Ventolin HFA) 108 (90 Base) MCG/ACT inhaler [id number] Yes Inhale 2 puffs every 4 hours as needed for wheezing or shortness of breath. Yaritza Johnson, DO Active ALPRAZolam (Xanax) 0.5 MG tablet [id number] Take 1 tablet (0.5 mg) by mouth 1 time for 1 dose. Take 30 minutes prior to MRI Lisandra Aldridge, DETECTIVE [employer]ARCOT[employer]ICE - BILLBOARD POSTER HELPER 10/10/24 2359 Discontinued 10/17/24 1119 budesonide-formoterol (Symbicort) 80-4.5 MCG/ACT inhaler [id number] Inhale 2 puffs 2 times daily. Yaritza Johnson, DO Active busPIRone (Buspar) 10 MG tablet [id number] Yes Take 10 mg by mouth 3 times daily as needed. Historical Provider, Active cholecalciferol (Vitamin D-3) 25 MCG (1000 UT) capsule [id number] Yes Take 1,000 Units by mouth daily. Historical Provider, Active ipratropium-albuterol (Duo-Neb) 0.5-2.5 mg/3 mL nebulizer solution [id number] Yes Take 3 mL by nebulization every 6 hours. Historical ProviderMD Active loratadine (Claritin) 5 MG chewable tablet [id number] Yes Chew 5 mg daily. Historical Provider, Active Melatonin 2.5 MG chewable tablet [id number] Yes Chew Daily as needed. Historical Provider, Active Multiple Vitamin (multivitamin) capsule [id number] Yes Take 1 capsule by mouth daily. Historical ProviderMD Active Wyola-3 Fatty Acids (OMEGA 3 500 PO) [id number] Yes Take by mouth daily. Historical ProviderMD Active oxyCODONE-acetaminophen (Percocet) 7.5-325 MG tablet [id number] Take 1 tablet by mouth every 6 hours as needed for moderate pain (4-6) for up to 5 days. Jeffrey Horne DO (more content not included)... Normal [facility] Progress Note THORACIC ONCOLOGY AN D LUNG NODULE TUMOR BOARD RECOMMENDATIONS Consensus Recommendation [...] Watson to do recommendations for CAMACHO maria: SK MR#/Epic [id number] Oncologist: Dr. Mauri Chance ([place]) CTAP: /Age [birth year] 73 yo Rad Oncologist MRI: 10/17/24 Gender Female Assistant Womens Volleyball Coach: Dr. Dayna Kamara/ [facility] PET: 10/30/24 Smoking History: ? Former 40 pk yr Quit 05/2024 PCP: Dr. Tu Hector PFT: 09/25/24 @ [facility] ?Prospective []Retrospective Personal Banking Advisor: Dr. Luis PATH: EBUS/TBBX 10/09/24; US Thora 10/06/24; Thyroid bx- [place] 10/10/24 (path pending) Clinical Stage: unable to stage : @ least N2 dz Path Stage: T N M Barium Swallow 10/06/24 Brief Summary Known COPD was seen in ED at [place] for eval of worsening SOB, Left shoulder, back, and lung pain, and dizziness. CT in [place] noted a left hilar mass, LEYLA mass and adenopathy, R atrial mass, pericardial effusion and thyroid nodules. Evaluated by [place] med onc and recommended to have PET, MRI and biopsy. Sent to [facility] CTS and arranged same day urgent appts with pulmonary and cardiology. Sent for EBUS and now presents to review imaging, path, staging and plan of care. * Also completed thyroid bx @ [place] and path results are pending Recommendations: 1. [...] plan may differ from this recommendation. Normal [facility] 36on 10-11-2024 36 Pt daughter notified . Confirmed with pharmacy that prescription is ready for pickup. [facility] 36on 10-10-2024 36 Script sent for 1 ti me dose prior to MRI- please notify patient Normal [facility] 36 Pt called and states she is claustrophobic. Dr. Fortune ordered an MRI brain which is scheduled on 10/17/24. Pt is requesting something to help with anxiety prior to scan. Pharmacy confirmed. Please advise. [facility] Culture, Blood (WB)on 2024 CUB Blood cultures x2, f rom two different sites No growth in 5 days. Normal [facility] Comment on above: Performed By: #### L 500.4050, L300.3900, L503.6005, L100.0100, L300.4310, M200.1000 ####[facility] [address] [place], [place], [id number] FNA 1st Biopsy w/ USon 10-10 FNA 1st Biopsy w/ US Normal [facility] Special Stain Group IIon Special Stain Group II Normal [facility] Comment on above: Performed By: #### P SSII ####[facility] [address] [place], [place], [address] 36on 10-09-2024 36 Taresa notified. Normal [facility] AFB CULTUREon 10-09-2024 AFB CULTURE AFB CULTURE Referenc e No growth at 6 weeks AFB STAIN Reference No acid fast bacilli seen by fluorescent microscopy ORDER COMMENTS: Stain Reference Range: No acid fast bacilli seen by fluorescent microscopy. [ S = SUSCEPTIBLE R = RESISTANT I = INTERMEDIATE S-DD = Susceptible-dose dependent NS = Non-susceptible NO = No Interpretation ] [facility] Comment on above: Performed By: #### L [id number] ####Button Maker: GUERDA WEBBER ([id number])[facility])[address] [place] [address] FUNGAL CULTUREon 10-09-2024 FUNGAL CULTURE FUNGAL CULTURE Refer ence No fungus isolated after 21 days [ S = SUSCEPTIBLE R = RESISTANT I = INTERMEDIATE S-DD = Susceptible-dose dependent NS = Non-susceptible NO = No Interpretation ] [facility] Comment on above: Performed By: #### L [id number] #### Button Maker: GUERDA WEBBER ([phone]) [address] FUNGAL STAINon 10-09-2024 FUNGAL STAIN FUNGAL STAIN Referen ce No fungal elements seen ORDER COMMENTS: Reference Range: No fungal elements seen [ S = SUSCEPTIBLE R = RESISTANT I = INTERMEDIATE S-DD = Susceptible-dose dependent NS = Non-susceptible NO = No Interpretation ] [facility] Comment on above: Performed By: #### L AB900, [id number] ####Button Maker: GUERDA WEBBER ([id number])[address] RESPIRATORY CULTURE AND STAI Non 10-09-2024 RESPIRATORY [...] = Non-susceptible NO = No Interpretation ] [facility] Comment on above: Performed By: #### L AB900, [id number] ####Button Maker: GUERDA EWBBER ([id number])[address] 30on 10-06-2024 30 Patient discharged Problem: Pain [...] and maintained or improved Outcome: Completed Normal [facility] [id number] 10-06-2024 [id number] Pt adm for tx/ eval of SOB- found to have pleural effusion. RA currently. US guided thoracentesis, XR chest and barium swallow completed. Spoke with pt and family, introduced self and roll. Pt plans to return home- no needs. [facility] CBC W Auto Differential pane l (Bld)on 10-06-2024 Basophils (Bld) [#/Vol] 0 10*3/uL 0.0 - 0.2 10*3/uL [facility] Basophils/100 WBC (Bld) 0.6 % 0.0 - 2.0 % [facility] Eosinophils (Bld) [#/Vol] 0 10*3/uL 0.0 - 0.5 10*3/uL [facility] Eosinophils/100 WBC (Bld) 0.6 % 0.0 - 6.0 % [facility] Erythrocyte distribution width (RBC) [Ratio] 18.8 % High 11.5 - 15.0 % [facility] Hematocrit (Bld) [Volume fraction] 34.4 % Low 35.0 - 47.0 % [facility] Hemoglobin (Bld) [Mass/Vol] 11 g/dL Low 11.7 - 16.0 g/dL [facility] Immature granulocytes (Bld) [#/Vol] 0 10*3/uL NINF - 0.1 10*3/uL [facility] Immature granulocytes/100 WBC (Bld) 0.3 % 0.0 - 2.0 % [facility] Interpretation and review of laboratory results Abnormal [facility] Lymphocytes (Bld) [#/Vol] 0.7 10*3/uL Low 1.0 - 4.3 10*3/uL [facility] Lymphocytes/100 WBC (Bld) 20.2 % 15.0 - 45.0 % [facility] MCH (RBC) [Entitic mass] 25.9 pg Low 26.0 - 34.0 pg [facility] MCHC (RBC) [Mass/Vol] 32 % 30.5 - 36.0 % [facility] MCV (RBC) [Entitic vol] 80.9 fL 77.0 - 99.0 fL [facility] Monocytes (Bld) [#/Vol] 0.6 10*3/uL 0.0 - 0.9 10*3/uL [facility] Monocytes/100 WBC (Bld) 16.4 % High 5.0 - 13.0 % [facility] Neutrophils (Bld) [#/Vol] 2.2 10*3/uL 1.8 - 7.5 10*3/uL [facility] Neutrophils/100 WBC (Bld) 61.9 % 38.0 - 82.0 % [facility] Nucleated RBC/100 WBC (Bld) [Ratio] 0 % [facility] Platelet mean volume (Bld) [Entitic vol] 8.9 fL Low 9.0 - 12.7 fL [facility] Platelets (Bld) [#/Vol] 226 10*3/uL 140 - 440 10*3/uL [facility] RBC (Bld) [#/Vol] 4.25 10*6/uL 3.80 - 5.2 0 10*6/uL [facility] WBC (Bld) [#/Vol] 3.5 10*3/uL Low 3.6 - 10.7 10*3/uL [facility] CBC WITH AUTO DIFFERENTIALon 10-06-2024 Basophils (Bld) [#/Vol] 0.0 10*3/uL Normal 0.0-0.2 [facility] Comment on above: Performed By: #### L [id number] ####Button Maker: GUERDA WEBBER ([phone])[address] Basophils/100 WBC (Bld) 0.6 % Normal 0.0-2.0 [facility] Comment on above: Performed By: #### L [id number] ####Button Maker: GUERDA WEBBER ([id number])[facility])[address] [place] [address] Eosinophils (Bld) [#/Vol] 0.0 10*3/uL Normal 0.0-0.5 [facility] Comment on above: Performed By: #### L [id number] ####Button Maker: GUERDA WEBBER ([id number])[facility])[address] [place] [address] Eosinophils/100 WBC (Bld) 0.6 % Normal 0.0-6.0 [facility] Comment on above: Performed By: #### L [id number] ####Button Maker: GUERDA WEBBER ([id number])[address] Erythrocyte distribution width (RBC) [Ratio] 18.8 % High 11.5-15.0 [facility] Comment on above: Performed By: #### L [id number] ####Button Maker: GUERDA WEBBER ([id number])[facility])[address] [place] [address] Hematocrit (Bld) [Volume fraction] 34.4 % Low 35.0-47.0 [facility] Comment on above: Performed By: #### L [id number] ####Button Maker: GUERDA WEBBER ([id number])[address] Hemoglobin (Bld) [Mass/Vol] 11.0 g/dL Low 11.7-16.0 [facility] Comment on above: Performed By: #### L [id number] ####Button Maker: GUERDA WEBBER ([id number])[facility])[address] [place] [address] IMMATURE GRANS % 0.3 % Normal 0.0-2.0 [facility] Comment on above: Performed By: #### L [id number] ####Button Maker: GUERDA WEBBER ([id number])[facility])[address] [place] [address] IMMATURE GRANS ABSOLUTE 0.0 10*3/uL Normal <0.1 [facility] Comment on above: Performed By: #### L [id number] ####Button Maker: GUERDA WEBBER ([id number])[facility])[address] [place] [address] Lymphocytes (Bld) [#/Vol] 0.7 10*3/uL Low 1.0-4.3 [facility] Comment on above: Performed By: #### L [id number] ####Button Maker: GUERDA WEBBER ([id number])[facility])[address] [place] [address] Lymphocytes/100 WBC (Bld) 20.2 % Normal 15.0-45.0 [facility] Comment on above: Performed By: #### L [id number] ####Button Maker: GUERDA WEBBER ([phone])[address] MCH (RBC) [Entitic mass] 25.9 pg Low 26.0-34.0 [facility] Comment on above: Performed By: #### L [id number] ####Button Maker: GUERDA WEBBER ([id number])[address] MCHC 32.0 % Normal 30.5-36.0 [facility] Comment on above: Performed By: #### L [id number] ####Button Maker: GUERDA WEBBER ([phone])[facility])[address] [place] [address] MCV (RBC) [Entitic vol] 80.9 fL Normal 77.0-99.0 [facility] Comment on above: Performed By: #### L [id number] ####Button Maker: GUERDA WEBBER ([phone])[facility])[address] [place] [address] Monocytes (Bld) [#/Vol] 0.6 10*3/uL Normal 0.0-0.9 [facility] Comment on above: Performed By: #### L [id number] ####Button Maker: GUERDA WEBBER ([phone])[facility] ([facility])[address] [place] [address] Monocytes/100 WBC (Bld) 16.4 % High 5.0-13.0 [facility] Comment on above: Performed By: #### L [id number] ####Button Maker: GUERDA WEBBER ([phone])[facility] ([facility])[address] [place] [address] NEUTROPHILS ABSOLUTE 2.2 10*3/uL Normal 1.8-7.5 [facility] Comment on above: Performed By: #### L [id number] ####Button Maker: GUERDA WEBBER ([phone])[facility] ([facility])[address] [place] [address] Neutrophils/100 WBC (Bld) 61.9 % Normal 38.0-82.0 [facility] Comment on above: Performed By: #### L [id number] ####Button Maker: GUERDA WEBBER ([phone])[facility] ([facility])[address] [place] [address] NRBC 0.0 /100 WBCs Normal 0.0-2.0 [facility] Comment on above: Performed By: #### L [id number] ####Button Maker: GUERDA WEBBER ([phone])[facility] ([facility])[address] [place] [address] Platelet mean volume (Bld) [Entitic vol] 8.9 fL Low 9.0-12.7 [facility] Comment on above: Performed By: #### L [id number] ####Button Maker: GUERDA WEBBER ([phone])[facility] ([facility])[address] [place] [address] [place] Platelets (Bld) [#/Vol] 226 10*3/uL Normal 140-440 [facility] Comment on above: Performed By: #### L [id number] ####Button Maker: GUERDA WEBBER ([phone])[facility] ([facility])[address] [place] [address] RBC (Bld) [#/Vol] 4.25 10*6/uL Normal 3.80-5.20 [facility] Comment on above: Performed By: #### L [id number] ####Button Maker: GUERDA WEBBER ([phone])[facility])[address] [place] [address] WBC (Bld) [#/Vol] 3.5 10*3/uL Low 3.6-10.7 [facility] Comment on above: Performed By: #### L [id number] ####Button Maker: GUERDA WEBBER ([phone])[facility] ([facility])[address] [place] [address] COMPREHENSIVE METABOLIC PANE Duran 10-06-2024 Albumin [Mass/Vol] 3.0 g/dL Low 3.4-4.8 [facility] Comment on above: Performed By: #### L AB17, [id number] #### Button Maker: GUERDA WEBBER ([phone]) [facility] ([facility]) [address] [place] [address] ALP [Catalytic activity/Vol] 45 U/L Normal 40-150 [facility] Comment on above: Performed By: #### L AB17, [id number] #### Button Maker: GUERDA WEBBER ([phone]) [facility] ([facility]) [address] [place] [address] ALT [Catalytic activity/Vol] 9 U/L Normal <30 [facility] Comment on above: Performed By: #### L AB17, [id number] #### Button Maker: GUERDA WEBBER ([phone]) [facility] ([facility]) [address] [place] [address] Anion gap [Moles/Vol] 8 mmol/L Normal 3-13 [facility] Comment on above: Performed By: #### L AB17, [id number] #### Button Maker: GUERDA WEBBER ([id number]) [facility]) [address] [place] [address] [place] AST [Catalytic activity/Vol] 17 U/L Normal <34 [facility] Comment on above: Performed By: #### L AB17, [id number] #### Button Maker: GUERDA WEBBER ([phone]) [facility]) [address] [place] [address] Bilirubin [Mass/Vol] 0.3 mg/dL Normal <1.2 [facility] Comment on above: Performed By: #### L AB17, [id number] #### Button Maker: GUERDA WEBBER ([id number]) [facility] ([facility]) [address] [place] [address] Calcium [Mass/Vol] 9.0 mg/dL Normal 8.8-10.0 [facility] Comment on above: Performed By: #### L AB17, [id number] #### Button Maker: GUERDA WEBBER ([phone]) [facility] ([facility]) [address] [place] [address] [place] Chloride [Moles/Vol] 106 mmol/L Normal 98-107 [facility] Comment on above: Performed By: #### L AB17, [id number] #### Button Maker: GUERDA WEBBER ([phone]) [facility] ([facility]) [address] [place] [address] [place] CO2 [Moles/Vol] 27 mmol/L Normal 23-31 [facility] Comment on above: Performed By: #### L AB17, [id number] #### Button Maker: GUERDA WEBBER ([phone]) [facility] ([facility]) [address] [place] [address] [place] Creatinine [Mass/Vol] 0.83 mg/dL Normal 0.57-1.11 [facility] Comment on above: Performed By: #### L AB17, [id number] #### Button Maker: GUERDA WEBBER ([phone]) [facility]) [address] [place] [address] [place] GLOMERULAR FILTRATION RATE ML/MIN/1.73 SQ M.PREDICTED 75.0 mL/min/1.73m*2 Normal >60.0 [facility] Comment on above: Result Comment: Calc ulation based on the Chronic Kidney Disease Epidemiology Collaboration (CKD-EPI) equation refit without adjustment for race Performed By: #### L AB17, [id number] #### Button Maker: GUERDA WEBBER ([phone]) [facility] ([facility]) [address] [place] [address] Glucose [Mass/Vol] 92 mg/dL Normal 82-115 [facility] Comment on above: Performed By: #### L AB17, [id number] #### Button Maker: GUERDA WEBBER ([id number]) [facility]) [address] [place] [address] Potassium [Moles/Vol] 3.3 mmol/L Low 3.5-5.1 [facility] Comment on above: Result Comment: [facility] potassium values may be up to 0.5 mmol/L lower than serum values. Performed By: #### L AB17, [id number] #### Button Maker: GUERDA WEBBER ([id number]) [facility]) [address] [place] [address] Protein [Mass/Vol] 6.2 g/dL Low 6.4-8.3 [facility] Comment on above: Performed By: #### L AB17, [id number] #### Button Maker: GUERDA WEBBER ([id number]) [facility]) [address] [place] [address] Sodium [Moles/Vol] 141 mmol/L Normal 136-145 [facility] Comment on above: Performed By: #### L AB17, [id number] #### Button Maker: GUERDA WEBBER ([phone]) [facility]) [address] [place] [address] [place] Urea nitrogen [Mass/Vol] 8 mg/dL Low 9-23 [facility] Comment on above: Performed By: #### L AB17, [id number] #### Button Maker: GUERDA WEBBER ([id number]) [facility]) [address] [place] [address] Comprehensive metabolic 1998 panelon 03-21-2025 Albumin [Mass/Vol] 3 g/dL Low 3.4 - 4.8 g/dL [facility] ALP [Catalytic activity/Vol] 45 U/L 40 - 150 U/L [facility] ALT [Catalytic activity/Vol] 9 U/L NINF - 30 U/L [facility] Anion gap [Moles/Vol] 8 mmol/L 3 - 13 mmol/L [facility] AST [Catalytic activity/Vol] 17 U[facility] Bilirubin [Mass/Vol] 0.3 mg/dL NINF - 1.2 mg/dL [facility] Calcium [Mass/Vol] 9 mg/dL 8.8 - 10. 0 mg/dL [facility] Chloride [Moles/Vol] 106 mmol/L 98 - 10 7 mmol/L [facility] CO2 [Moles/Vol] 27 mmol/L 23 - 31 mmol/L [facility] Creatinine [Mass/Vol] 0.83 mg/dL 0.57 - 1.11 mg/dL [facility] GFR/1.73 sq M.predicted (S/P/Bld) [Vol rate/Area] 75 mL/min - PINF [facility] Comment on above: Calculation based on the Chronic Kidney Disease Epidemiology Collaboration (CKD-EPI) equation refit without adjustment for race Glucose [Mass/Vol] 92 mg/dL 82 - 115 mg/dL [facility] Interpretation and review of laboratory results Abnormal [facility] Potassium [Moles/Vol] 3.3 mmol/L Low 3.5 - 5.1 mmol/L [facility] Comment on above: Plasma potassium breana ues may be up to 0.5 mmol/L lower than serum values. Protein [Mass/Vol] 6.2 g/dL Low 6.4 - 8.3 g/dL [facility] Sodium [Moles/Vol] 141 mmol/L 136 - 145 mmol/L [facility] Urea nitrogen [Mass/Vol] 8 mg/dL Low 9 - 23 mg/dL [facility] Consulton 10-06-2024 Consult [facility] [place] [place] [address] [place] [address] Patient - Karina Fernando - 1950 Date of Admission - 10/05/2024 8:10 PM Date of Evaluation - 10/06/2024 Room - W4-439/4[facility]9 A Hospital Day - 1 Consulting - Jeffrey Horne DO PCP - TU HECTOR DO [...] She presented to the emergency department at [facility] with worsening left shoulder, back, lung pain and lightheadedness when standing. Reportedly, she had also been experiencing voice changes and difficulty swallowing both liquids and solids with some swelling since February 2024. She is also been experiencing worsening headache, sensation of vertigo, ringing in her left ear, sensation of falling to the left side. At the [facility] emergency department, she underwent a chest x-ray which demonstrated a large left-sided pleural effusion and so was sent for management to the [facility]. When I examined her this morning, she [...] for a previous hospital admission at the [facility] afebrile [address] chest [...] by provider] hydroCHLOROthiazide, 25 mg, Oral, Daily ipratropium-albuterol, 3 mL, Nebulizat (more content not included)... Normal [facility] [place] MODIFIED BARIUM WITH VIDE O AND [...] Signed Date/Time: 10/06/2024 9:30 AM EDT Normal [facility] Laboratory - Chemistry and C hemistry - challengeon 10-06-2024 Glucose [Mass/Vol] 206 mg/dL High 70 - 100 mg/dL [facility] Glucose [Mass/Vol] 113 mg/dL High 70 - 100 mg/dL [facility] Magnesium [Mass/Vol] 1.9 mg/dL 1.6 - 2 .6 mg/dL [facility] MAGNESIUMon 10-06-2024 Magnesium [Mass/Vol] 1.9 mg/dL Normal 1.6-2.6 [facility] Comment on above: Result Comment: LILIBETH Gramajo COMMENTS: Higher values can be expected in females during menses. Performed By: #### L AB17, [id number] #### Button Maker: GUERDA WEBBER ([phone]) [facility] ([facility]) [address] [place] [address] Magnesium [Mass/Vol]on 10-06 Interpretation and review of laboratory results Normal [facility] Higher values can be expected in females during menses. [facility] No Panel Informationon 10-06 Pleural effusion was too small to safely tap at this time, thoracentesis was not performed. If pleural fluid labs are clinically indicated, recommend short-term interval follow-up with IR to reassess fluid collection and possibly reattempt procedure. Report Dictated on Electronically Signed By: Mirta Hardin PA-C Electronically Signed Date/Time: 10/06/2024 3:55 PM EDT [facility] Patient Name: KARINA FERNANDO : 1950 Exam Date/Time: 10/06/2024 08:32 Procedure: US GUIDED THORACENTESIS Ordering Provider: TAM CANDICE Reason For Exam: left pleural effusion CLINICAL INFORMATION: Pleural effusion. Possible thoracentesis. PROCEDURE: The patient was placed seated on the ultrasound cart. A limited ultrasound of the left thorax was performed. FINDINGS: Small loculated left pleural effusion. [facility] Mirta Hardni PA -C - 10/06/2024 Patient Name: KARINA FERNANDO : [...] Electronically Signed Date/Time: 10/06/2024 3:55 PM EDT [facility] Interpretation and review of laboratory results Abnormal [facility] Performed by: [facility], [address] [place] [address] CLIA ID: [id number] [facility] Radiology Study observation (narrative) [place] Interpretation and review of laboratory results Abnormal [facility] Performed by: [facility], [address] [place] [address] CLIA ID: [id number] [facility] No Panel InformationOrdered By: Mirta Hardin on 10-06-2024 [facility] Work Phone: Nursing Noteon 10-06-2024 Nursing Note [...] via telephone to Fab Lawson RN. Normal [facility] Progress Noteon 10-06-2024 Progress Note Patient chart is reviewed. Currently rounding. Full note to follow. Normal [facility] Progress Note Speech-Language Pathology SPEECH LANGUAGE PATHOLOGY [facility] Modified Barium Swallow Study Patient Name: Karina Fernando Evaluation Date: 10/06/2024 Date of : 1950 Admission Date: 10/05/2024 8:10 PM Age: 73 y.o. Room[facility]Bed: [facility] A IMPRESSION: The patient presents [...] contrast enters the airway. No further skilled PIPE COVERING MOLDER indicated at this time. Please reconsult should [...] and other work up. She presented to [facility] ED - with worsening left shoulder, back [...] Unable to obtain labs and imaging from [facility] - Was told she has a complete [...] laryngeal pene (more content not included)... Normal [facility] RF videography Hypopharynx a nd Esophagus Views for swallowing function W speech and W barium contrast Luis Manuel 10-06-2024 No convincing laryngeal penetration or airway aspiration. Please refer to the speech pathologist's report for additional comments and recommendation Report Dictated on Electronically Signed By: Edgardo Lorenz MD Electronically Signed Date/Time: 10/06/2024 9:30 AM [facility] Patient Name: KARINA FERNANDO : 1950 [facility]#: [id number] Exam Date/Time: 10/06/2024 08:57 Procedure: FL MODIFIED [...] no convincing laryngeal penetration or airway aspiration. [facility] Edgardo Lorenz MD - 10/06/2024 Patient Name: [...] Electronically Signed Date/Time: 10/06/2024 9:30 AM EDT [facility] Radiology Study observation (narrative) [facility] RF videography Hypopharynx a nd Esophagus Views for swallowing function W speech and W barium contrast POOrdered By: Edgardo Lorenz on 10-06-2024 [employer] Work Phone: US GUIDED THORACENTESISon US GUIDED THORACENTESIS Patient Name: KARINA FERNANDO : 1950 Exam [...] Electronically Signed Date/Time: 10/06/2024 3:55 PM EDT [facility] XR CHEST 2 VIEWSon 5 [...] Electronically Signed Date/Time: 10/06/2024 10:43 AM EDT [facility] XR Chest 2 Viewson 5 [...] MD Electronically Signed Date/Time: 10/06/2024 10:43 AM [facility] Patient Name: KARINA FERNANDO : 1950 Exam Date/Time: 10/06/2024 08:54 Procedure: XR CHEST 2 VIEWS Ordering Provider: TAM CANDICE Reason For Exam: Pleural effusion CHEST X-RAY PA/LATERAL CLINICAL INDICATION: Pleural effusion. Patient with known left perihilar mass. TECHNIQUE: Frontal and lateral plain films of the chest were obtained. COMPARISON: CTA chest 10/05/[address] [facility] Dedrick Haq MD - 10/06/2024 Patient Name: [...] Electronically Signed Date/Time: 10/06/2024 10:43 AM EDT [facility] Radiology Study observation (narrative) [facility] XR Chest 2 ViewsOrdered By: Dedrick Haq on 10-06-2024 [facility] Work Phone: [phone] 10-05-[id number] to find out Formulary alternative. Normal [facility] 12 Lead EKGon 10-05-2024 12 Lead EKG Normal [facility] 36on 10-05-2024 36 Genaro explains her and her Mother are at [facility]. Told by the Dr her Mother isn't leaving anytime soon. Her Mother had a CXR and her L lung was completely white. They are now waiting on CT results. Her Mother will eventually be transferred over to [facility] when a bed opens. Explains Her Mother wants back on Symbicort. Normal [facility] 36 Patient is active wi Donald PENDLETON and NAN for EBUS/ENB 65410/30012 per code check Normal [facility] 36 Glenny notified. Sincere jain She is going to take her Mom to the ER here shortly.Needs to discuss with her Mother what to do with the Symbicort and will let us know. Normal [facility] 36 Instructions EBUS Endobronchial Ultrasound Procedure Date: October 09, 2024 Time: 1:30 PM Arrival Time: 12:00 PM Physician: Dr. Mejia Location: [facility], Endoscopy Department, [address] [place] [address] Please arrive at the hospital registration desk 1.5 hours prior to scheduled start of procedure. Make sure you have a known responsible adult to transport you home from the hospital as you will not be permitted to drive. Your procedure will be cancelled if you do not have someone to take you home. You can only use a taxi/bus/Uber/medical nascar driver if you have a known responsible adult to go with you. You may use Service Crew Supervisor Parking. Each patient will receive one validation ticket for [employer] Parking. Do not drink alcohol before or [...] Johnson at [address], [place], [address] to discuss results. Things to look for [...] If you have any questions, please call: [phone] RN Clinical Coordinator [facility] Pulmonary Medicine [address] [place] [address], [address] [place] [address] Procedure placed on physician's outlook [...] instructed t (more content not included)... Normal [facility] 36 Chief complaint/symp jenny: Pt's Daughter, Glenny explains her Mother started Trelegy earlier in [...] a pulmonary provider: 10/03/24 Current recommendations: Instructed Glenny to have her Mother monitor her SP02 levels and If her Mothers breathing becomes compromised to dial 911 prior to advisement. Normal [facility] Absolute lymphocyte countOrd ered By: Marty Woods on 10-05-2024 Lymphocytes Auto (Unsp spec) [#/Vol] 1.10 10*3/uL 0.83-4.51 [facility] Absolute neutrophil countOrd ered By: Marty Woods on 10-05-2024 Neutrophils (Bld) [#/Vol] 3.0 10*3/uL 2.0-7.7 [facility] Activated partial thrombopla stin time (aPTT) in platelet poor plasma by coagulation aOrdered By: Marty Woods on 10-05-2024 aPTT Coag (PPP) [Time] 22.2 s Low 24.1-36.2 [facility] Anion gap in Serum or Plasma Ordered By: Marty Woods on 10-05-2024 Anion gap [Moles/Vol] 14 mmol/L 5-[address] [facility] Automated lymphocyte count a s percentage of total leukocytesOrdered By: Marty Woods on 10-05-2024 Lymphocytes/100 WBC Auto (Unsp spec) 23.3 % 19-41 [facility] BUN/creatinine ratioOrdered By: Marty Woods on 10-05-2024 Urea nitrogen/Creatinine [Mass ratio] 10.0 mg/mg 10-20 [facility] Basophil percentageOrdered B y: Marty Woods on 10-05-2024 Basophils/100 WBC (Bld) 0.4 % 0-1 [facility] Bilirubin, totalOrdered By: Marty Woods on 10-05-2024 Bilirubin [Mass/Vol] 0.17 mg/dL 0.00-1.30 [facility] Blood cultureOrdered By: Oj Woods on 10-05-2024 Bacteria identified Cx Nom (Bld) No growth in 5 days. [facility] Bacteria identified Cx Nom (Bld) No growth in 5 days. [facility] CBC W/Diff, Automatedon 09-17 Absolute Lymph 1.10 X10 3/uL Normal 0.83-4.51 [facility] Comment on above: Performed By: #### L 500.4050, L300.3900, L503.6005, L100.0100, L300.4310, M200.1000 ####[facility] [address] [place], [address] Absolute Neut 3.0 X10 3/uL Normal 2.0-7.7 [facility] Comment on above: Performed By: #### L 500.4050, L300.3900, L503.6005, L100.0100, L300.4310, M200.1000 ####[facility] [address] [place], [address] Basophils/100 WBC (Bld) 0.4 % Normal 0-1 [facility] Comment on above: Performed By: #### L 500.4050, L300.3900, L503.6005, L100.0100, L300.4310, M200.1000 ####[facility] [address] [place], [address] Eosinophils/100 WBC (Bld) 0.0 % Normal 0-5 [facility] Comment on above: Performed By: #### L 500.4050, L300.3900, L503.6005, L100.0100, L300.4310, M200.1000 ####[facility] [address] [place], [address] Erythrocyte distribution width (RBC) [Ratio] 19.0 % High 11.6-14.6 [facility] Comment on above: Performed By: #### L 500.4050, L300.3900, L503.6005, L100.0100, L300.4310, M200.1000 ####[facility] [address] [place], [address] Hematocrit (Bld) [Volume fraction] 39.2 % Normal 37-47 [facility] Comment on above: Performed By: #### L 500.4050, L300.3900, L503.6005, L100.0100, L300.4310, M200.1000 ####[facility] [address] [place], [address] Hemoglobin (Bld) [Mass/Vol] 12.3 g/dL Normal 12.0-15.0 [facility] Comment on above: Performed By: #### L 500.4050, L300.3900, L503.6005, L100.0100, L300.4310, M200.1000 ####[facility] [address] [place], [address] IG% 0.200 Normal 0.0-0.9 [facility] Comment on above: Result Comment: IG% - Immature Granulocytes (promyelocytes, myelocytes andmetamyelocytes) > 1% indicates that a LEFT SHIFT is Present. Performed By: #### L 500.4050, L300.3900, L503.6005, L100.0100, L300.4310, M200.1000 ####[facility] [address] [place], [address] Lymphocytes/100 WBC (Bld) 23.3 % Normal 19-41 [facility] Comment on above: Performed By: #### L 500.4050, L300.3900, L503.6005, L100.0100, L300.4310, M200.1000 ####[facility] [address] [place], [address] MCH (RBC) [Entitic mass] 25.6 pg Low 27.0-32.0 [facility] Comment on above: Performed By: #### L 500.4050, L300.3900, L503.6005, L100.0100, L300.4310, M200.1000 ####[facility] [address] [place], [address] MCHC (RBC) [Mass/Vol] 31.4 g/dL Low 32-[address] [facility] Comment on above: Performed By: #### L 500.4050, L300.3900, L503.6005, L100.0100, L300.4310, M200.1000 ####[facility] [address] [place], [address] MCV (RBC) [Entitic vol] 81.7 fL Normal 81-99 [facility] Comment on above: Performed By: #### L 500.4050, L300.3900, L503.6005, L100.0100, L300.4310, M200.1000 ####[facility] [address] [place], [address] Monocytes/100 WBC (Bld) 12.9 % High 0-10 [facility] Comment on above: Performed By: #### L 500.4050, L300.3900, L503.6005, L100.0100, L300.4310, M200.1000 ####[facility] [facility] [address] [place], [address] Neutrophils/100 WBC (Bld) 63.2 % Normal 47-70 [facility] Comment on above: Performed By: #### L 500.4050, L300.3900, L503.6005, L100.0100, L300.4310, M200.1000 ####[facility] [address] [place], [address] Nucleated RBC (Bld) [#/Vol] 0 10*3/uL Normal 0-5 [facility] Comment on above: Performed By: #### L 500.4050, L300.3900, L503.6005, L100.0100, L300.4310, M200.1000 ####[facility] [address] [place], [address] Platelet mean volume (Bld) [Entitic vol] 8.8 fL Normal 6.2-12.0 [facility] Comment on above: Performed By: #### L 500.4050, L300.3900, L503.6005, L100.0100, L300.4310, M200.1000 ####[facility] [address] [place], [address] Platelets (Bld) [#/Vol] 278 10*3/uL Normal 150-450 [facility] Comment on above: Performed By: #### L 500.4050, L300.3900, L503.6005, L100.0100, L300.4310, M200.1000 ####[facility] [address] [place], [address] RBC (Bld) [#/Vol] 4.80 10*6/uL Normal 4.2-5.4 [facility] Comment on above: Performed By: #### L 500.4050, L300.3900, L503.6005, L100.0100, L300.4310, M200.1000 ####[facility] [address] [place], [address] RDW SD 56.2 fl High 35.1-43.9 [facility] Comment on above: Performed By: #### L 500.4050, L300.3900, L503.6005, L100.0100, L300.4310, M200.1000 ####[facility] [address] [place], [address] WBC (Bld) [#/Vol] 4.7 10*3/uL Normal 4.4-11.0 [facility] Comment on above: Performed By: #### L 500.4050, L300.3900, L503.6005, L100.0100, L300.4310, M200.1000 ####[facility] [address] [place], [address] CTA Chest W/WO Contraston CTA Chest W/WO Contrast Normal [facility] Carbon dioxide, total [Moles /volume] in Central venous bloodOrdered By: Marty Woods on 10-05-2024 CO2 [Moles/Vol] 25.1 mmol/L 21.0-32.0 [facility] Chest PA and Lateralon 10-05 Chest PA and Lateral Normal [facility] Chloride assayOrdered By: Lopez Woods on 10-05-2024 Chloride [Moles/Vol] 102 mmol/L 98-108 [facility] Comprehensive Metabolic Prof ilon 10-05-2024 Albumin [Mass/Vol] 4.2 g/dL Normal 3.4-4.8 [facility] Comment on above: Performed By: #### L 500.4050, L300.3900, L503.6005, L100.0100, L300.4310, M200.1000 ####[facility] [address] [place], [address] Albumin/Globulin [Mass ratio] 1.4 {ratio} Normal 0.9-2.4 [facility] Comment on above: Performed By: #### L 500.4050, L300.3900, L503.6005, L100.0100, L300.4310, M200.1000 ####[facility] [address] [place], [address] ALK PHOS 57 U/L Normal 35-104 [facility] Comment on above: Performed By: #### L 500.4050, L300.3900, L503.6005, L100.0100, L300.4310, M200.1000 ####[facility] [address] [place], [address] ALT [Catalytic activity/Vol] 11 U/L Normal <=34 [facility] Comment on above: Performed By: #### L 500.4050, L300.3900, L503.6005, L100.0100, L300.4310, M200.1000 ####[facility] [address] [place], [address] AST [Catalytic activity/Vol] 20 U/L Normal <=31 [facility] Comment on above: Performed By: #### L 500.4050, L300.3900, L503.6005, L100.0100, L300.4310, M200.1000 ####[facility] [address] [place], [address] Bilirubin [Mass/Vol] 0.17 mg/dL Normal 0.00-1.30 [facility] Comment on above: Performed By: #### L 500.4050, L300.3900, L503.6005, L100.0100, L300.4310, M200.1000 ####[facility] [address] [place], [address] BUN/CRE 10.0 RATIO Normal 10-20 [facility] Comment on above: Performed By: #### L 500.4050, L300.3900, L503.6005, L100.0100, L300.4310, M200.1000 ####[facility] [address] [place], [address] Calcium [Mass/Vol] 9.6 mg/dL Normal 7.6-11.0 [facility] Comment on above: Performed By: #### L 500.4050, L300.3900, L503.6005, L100.0100, L300.4310, M200.1000 ####[facility] [address] [place], [address] Chloride [Moles/Vol] 102 mmol/L Normal 98-108 [facility] Comment on above: Performed By: #### L 500.4050, L300.3900, L503.6005, L100.0100, L300.4310, M200.1000 ####[facility] [address] [place], [address] CO2 [Moles/Vol] 25.1 mmol/L Normal 21.0-32.0 [facility] Comment on above: Performed By: #### L 500.4050, L300.3900, L503.6005, L100.0100, L300.4310, M200.1000 ####[facility] [address] [place], [address] Creatinine [Mass/Vol] 0.99 mg/dL Normal 0.70-1.[address] [facility] Comment on above: Performed By: #### L 500.4050, L300.3900, L503.6005, L100.0100, L300.4310, M200.1000 ####[facility] [address] [place], [address] ECRCL 49.48 ml/min Low 50-250 [facility] Comment on above: Performed By: #### L 500.4050, L300.3900, L503.6005, L100.0100, L300.4310, M200.1000 ####[facility] [address] [place], [address] GAP 14 Normal 5-15 [facility] Comment on above: Performed By: #### L 500.4050, L300.3900, L503.6005, L100.0100, L300.4310, M200.1000 ####[facility] [address] [place], [address] GFR/1.73 sq M.predicted among non-blacks MDRD (S/P/Bld) [Vol rate/Area] 61 mL/min/{1.73_m2} Normal >60 [facility] Comment on above: Result Comment: mL/m in/1.73m2 CKD-EPI Creatinine Equation (2020) Performed By: #### L 500.4050, L300.3900, L503.6005, L100.0100, L300.4310, M200.1000 ####[facility] [address] [place], [address] Globulin (S) [Mass/Vol] 3.0 g/dL Normal 2.2-4.2 [facility] Comment on above: Performed By: #### L 500.4050, L300.3900, L503.6005, L100.0100, L300.4310, M200.1000 ####[facility] [address] [place], [address] Glucose [Mass/Vol] 107 mg/dL High 70-99 [facility] Comment on above: Performed By: #### L 500.4050, L300.3900, L503.6005, L100.0100, L300.4310, M200.1000 ####[facility] [address] [place], [address] Potassium [Moles/Vol] 3.3 mmol/L Normal 3.3-5.[address] [facility] Comment on above: Performed By: #### L 500.4050, L300.3900, L503.6005, L100.0100, L300.4310, M200.1000 ####[facility] [address] [place], [address] Sodium [Moles/Vol] 141 mmol/L Normal 133-145 [facility] Comment on above: Performed By: #### L 500.4050, L300.3900, L503.6005, L100.0100, L300.4310, M200.1000 ####[facility] [address] [place], [place], [address] T PROT 7.2 g/dL Normal 5.9-8.4 [facility] Comment on above: Performed By: #### L 500.4050, L300.3900, L503.6005, L100.0100, L300.4310, M200.1000 ####[facility] [address] [place], [address] Urea nitrogen [Mass/Vol] 10 mg/dL Normal 4-19 [facility] Comment on above: Performed By: #### L 500.4050, L300.3900, L503.6005, L100.0100, L300.4310, M200.1000 ####[facility] [address] [place], [place], [id number] Emergency Department Summary on 10-05-2024 Emergency Department Summary Normal [facility] Eosinophil percentageOrdered By: Marty Woods on 10-05-2024 Eosinophils/100 WBC (Bld) 0.0 % 0-5 [facility] Erythrocyte distribution wid th ratioOrdered By: Marty Woods on 10-05-2024 Erythrocyte distribution width (RBC) [Ratio] 19.0 % High 11.6-14.6 [facility] Erythrocyte distribution wid th standard deviationOrdered By: Marty Woods on 10-05-2024 Erythrocyte distribution width (RBC) [Entitic vol] 56.2 fL High 35.1-43.9 [facility] Erythrocyte distribution width (RBC) [Ratio] 56.2 fl High 35.1-43.9 [facility] Estimation of creatinine nikki aranceOrdered By: Marty Woods on 10-05-2024 Estimated Creatinine Clearance Calc 49.48 ml/min Low 50-250 [facility] GFR/1.73 sq M.predicted ty g non-blacks MDRD (S/P/Bld) [Vol rate/Area]Ordered By: Marty Woods on 10-05-2024 Estimated GFR (MDRD) Non-Af Amer 61 >60 [facility] Comment on above: mL/min/1.73m2 CKD-EP I Creatinine Equation (2020) Glomerular filtration rate ( GFR) estimation/1.73 sq m using serum, plasma, or whole bOrdered By: Marty Woods on 10-05-2024 GFR/1.73 sq M.predicted among non-blacks MDRD (S/P/Bld) [Vol rate/Area] 61 mL/min/{1.73_m2} >60 [facility] Comment on above: mL/min/1.73m2 CKD-EP I Creatinine Equation (2020) Hematocrit Auto (Bld) [Volum e fraction]Ordered By: Marty Woods on 10-05-2024 Hematocrit (Bld) [Volume fraction] 39.2 % 37-47 [facility] Hemoglobin measurementOrdere d By: Marty Woods on 10-05-2024 Hemoglobin (Bld) [Mass/Vol] 12.3 g/dL 12.0-15.0 [facility] Immature granulocytes/100 WB C Auto (Bld)Ordered By: Marty Wodos on 10-05-2024 Immature granulocytes/100 WBC (Bld) 0.200 % 0.0-0.9 [facility] Comment on above: IG% - Immature Granu locytes (promyelocytes, myelocytes and metamyelocytes) > 1% indicates that a LEFT SHIFT is Present. Influenza virus A and B and SARS-CoV-2 (COVID-19) and Respiratory syncytial virus RNAOrdered By: Marty Woods on 10-05-2024 SARS-CoV-2 (COVID-19) RNA IMGUE+probe Ql (Unsp spec) [facility] [employer] normalized rat io (INR) calculationOrdered By: Marty Woods on 10-05-2024 INR Coag (Bld) [Relative time] 1.0 {INR} [facility] L499.0042on 10-05-2024 Trop T High Sen 16 ng/L High <=14 [facility] Comment on above: Performed By: #### L 499.0042 ####[facility] [address] [place], [address] L499.0043on 10-05-2024 Trop T High Sen Normal <=14 [facility] Comment on above: Result Comment: PT D ISCHARGED Performed By: #### L 499.0043 ####[facility] [address] [place], [address] L501.4021on 10-05-2024 Trop T High Sen 17 ng/L High <=14 [facility] Comment on above: Performed By: #### L 501.4021 ####[facility] [address] [place], [address] L503.7505on 10-05-2024 Natriuretic peptide B (Bld) [Mass/Vol] 166 pg/mL Normal <=900 [facility] Comment on above: Result Comment: Hear t Failure Unlikely: < 300 pg/mLHeart Failure Likely< 50 Years: > 450 pg/mL50-75 Years: > 900 pg/mL>75 Years: > 1800 pg/mL Performed By: #### L 503.7505 ####[facility] [address] [place], [place], [address] Laboratory - Chemistry and C hemistry - challengeOrdered By: Marty Woods on 10-05-2024 Natriuretic peptide B (Bld) [Mass/Vol] 166 pg/mL <900 [facility] Comment on above: Heart Failure Unlike ly: < 300 pg/mLHeart Failure Likely< 50 Years: > 450 pg/mL50-75 Years: > 900 pg/mL>75 Years: > 1800 pg/mL AST [Catalytic activity/Vol] 20 U/L <32 [facility] Lactic Acidon 10-05-2024 Lactate [Moles/Vol] 1.4 mmol/L Normal 0.0-2.0 [facility] Comment on above: Order Comment: Y Performed By: #### L 500.4050, L300.3900, L503.6005, L100.0100, L300.4310, M200.1000 ####[facility] [address] [place], [address] Lactic acid measurementOrder ed By: Marty Woods on 10-05-2024 Lactate [Moles/Vol] 1.4 mmol/L 0.0-2.0 [facility] Lymphocytes Auto (Unsp spec) [#/Vol]Ordered By: Marty Woods on 10-05-2024 Lymphocytes (Bld) [#/Vol] 1.10 10*3/uL 0.83-4.51 [facility] Lymphocytes/100 WBC Auto (Un sp spec)Ordered By: Marty Woods on 10-05-2024 Lymphocytes/100 WBC (Bld) 23.3 % 19-41 [facility] M100.678on 10-05-2024 M100.678 Pending SARS-CoV-2 (COVID 19) Negative INFLUENZA A Negative INFLUENZA B Negative RSV PCR Negative Normal [facility] Comment on above: Performed By: #### M 100.678, L400.0001 ####[facility] [address] [place], [address] MCV (mean corpuscular volume ) determinationOrdered By: Marty Woods on 10-05-2024 MCV (RBC) [Entitic vol] 81.7 fL 81-99 [facility] Mean corpuscular hemoglobin (MCH) determinationOrdered By: Marty Woods on 10-05-2024 MCH (RBC) [Entitic mass] 25.6 pg Low 27.0-32.0 [facility] Mean corpuscular hemoglobin concentration (MCHC) determinationOrdered By: Marty Woods on 10-05-2024 MCHC (RBC) [Mass/Vol] 31.4 g/dL Low 32-[address] [facility] Mean platelet volume determi nationOrdered By: Marty Woods on 10-05-2024 Platelet mean volume (Bld) [Entitic vol] 8.8 fL 6.2-12.0 [facility] Monocyte percentageOrdered B y: Marty Woods on 10-05-2024 Monocytes/100 WBC (Bld) 12.9 % High 0-10 [facility] Neutrophil percentageOrdered By: Marty Woods on 10-05-2024 Neutrophils/100 WBC (Bld) 63.2 % 47-70 [facility] No Panel InformationOrdered By: Marty Woods on 10-05-2024 Troponin T High Sensitivity 17 ng/L High <14 [facility] Comment on above: Delta: 19 on 5-1704 Nucleated red blood cell per centageOrdered By: Marty Woods on 10-05-2024 Nucleated RBC/100 WBC (Bld) [Ratio] 0 % 0-5 [facility] Partial Thromboplast Timeon 10-05-2024 aPTT Coag (Bld) [Time] 22.2 s Low 24.1-36.2 [facility] Comment on above: Performed By: #### L 500.4050, L300.3900, L503.6005, L100.0100, L300.4310, M200.1000 ####[facility] [address] [place], [address] Platelet countOrdered By: Lopez Woods on 10-05-2024 Platelets (Bld) [#/Vol] 278 10*3/uL 150-450 [facility] Potassium (Unsp spec) [Mass/ Vol]Ordered By: Marty Woods on 10-05-2024 Potassium [Moles/Vol] 3.3 mmol/L 3.3-5.[address] [facility] Potassium measurement (mass/ volume)Ordered By: Marty Woods on 10-05-2024 Potassium (Unsp spec) [Mass/Vol] 3.3 mmol/L 3.3-5.1 [facility] Prothrombin Time w/INRon INR Coag (PPP) [Relative time] 1.0 {INR} Normal [facility] Comment on above: Performed By: #### L 500.4050, L300.3900, L503.6005, L100.0100, L300.4310, M200.1000 ####[facility] [address] [place], [address] PT Coag (PPP) [Time] 12.9 s Normal 11.7-14.9 [facility] Comment on above: Performed By: #### L 500.4050, L300.3900, L503.6005, L100.0100, L300.4310, M200.1000 ####[facility] [address] [place], [address] Prothrombin timeOrdered By: Marty Woods on 10-05-2024 PT Coag (PPP) [Time] 12.9 s 11.7-14.9 [facility] RBC Auto (Bld) [#/Vol]Ordere d By: Marty Woods on 10-05-2024 RBC (Bld) [#/Vol] 4.80 10*6/uL 4.2-5.4 [facility] Serum creatinine measurement (mass/volume)Ordered By: Marty Woods on 10-05-2024 Creatinine [Mass/Vol] 0.99 mg/dL 0.70-1.[address] [facility] Serum globulin measurementOr dered By: Marty Woods on 10-05-2024 Globulin (S) [Mass/Vol] 3.0 g/dL 2.2-4.2 [facility] Serum glucose measurement (m ass/volume)Ordered By: Marty Woods on 10-05-2024 Glucose [Mass/Vol] 107 mg/dL High 70-99 [facility] Serum or plasma alanine vicente otransferase (ALT) measurementOrdered By: Marty Woods on 10-05-2024 ALT [Catalytic activity/Vol] 11 U/L <35 [facility] Serum or plasma albumin usman urement (mass/volume)Ordered By: Marty Woods on 10-05-2024 Albumin [Mass/Vol] 4.2 g/dL 3.4-4.8 [facility] Serum or plasma albumin/glob ulin mass ratioOrdered By: Marty Woods on 10-05-2024 Albumin/Globulin [Mass ratio] 1.4 {ratio} 0.9-2.4 [facility] Serum or plasma alkaline marcela sphatase measurementOrdered By: Marty Woods on 10-05-2024 ALP [Catalytic activity/Vol] 57 U/L 35-104 [facility] Serum or plasma calcium usman urement (mass/volume)Ordered By: Marty Woods on 10-05-2024 Calcium [Mass/Vol] 9.6 mg/dL 7.6-11.0 [facility] Serum or plasma urea nitroge n measurement (mass/volume)Ordered By: Marty Woods on 10-05-2024 Urea nitrogen [Mass/Vol] 10 mg/dL 4-19 [facility] Sodium levelOrdered By: Deejay Woods on 10-05-2024 Sodium [Moles/Vol] 141 mmol/L 133-145 [facility] Total proteinOrdered By: Oj Woods on 10-05-2024 Protein [Mass/Vol] 7.2 g/dL 5.9-8.4 [facility] Troponin T.cardiac High sens itivity method [Mass/Vol]Ordered By: Marty Woods on 10-05-2024 Troponin T High Sensitivity 2 Hour 16 ng/L High <14 [facility] Troponin T.cardiac [Mass/vol ume] in Serum or Plasma by High sensitivity methodOrdered By: Marty Woods on 10-05-2024 Troponin T.cardiac High sensitivity method [Mass/Vol] 16 ng/L High <14 [facility] Urinalysis, Completeon 10-05 BACTERIA Normal None Seen [facility] Comment on above: Order Comment: CLEAN CATCH Result Comment: Canedwin elled via OM: Ordered Performed By: #### M 100.678, L400.0001 ####[facility] [address] [place], [address] BILIRUBIN URINE Normal Negative [facility] Comment on above: Order Comment: CLEAN CATCH Result Comment: Nancy elled via OM: Ordered Performed By: #### M 100.678, L400.0001 ####[facility] [address] [place], [address] Clarity (U) Normal Clear [facility] Comment on above: Order Comment: CLEAN CATCH Result Comment: Nancy elled via OM: Ordered Performed By: #### M 100.678, L400.0001 ####[facility] [address] [place], [address] Color (U) Normal Yellow [facility] Comment on above: Order Comment: CLEAN CATCH Result Comment: Canc elled via OM: MD Ordered Performed By: #### M 100.678, L400.0001 ####[facility] [address] [place], [address] EPI,SQUAMOUS Normal 5-10 [facility] Comment on above: Order Comment: CLEAN CATCH Result Comment: Canc elled via OM: MD Ordered Performed By: #### M 100.678, L400.0001 ####[facility] [address] [place], [address] GLUCOSE, UR Normal Normal [facility] Comment on above: Order Comment: CLEAN CATCH Result Comment: Canc elled via OM: MD Ordered Performed By: #### M 100.678, L400.0001 ####[facility] [address] [place], [address] KETONE UR Normal Negative [facility] Comment on above: Order Comment: CLEAN CATCH Result Comment: Canc elled via OM: MD Ordered Performed By: #### M 100.678, L400.0001 ####[facility] [address] [place], [address] LEUK ESTERASE Normal Negative [facility] Comment on above: Order Comment: CLEAN CATCH Result Comment: Canc elled via OM: MD Ordered Performed By: #### M 100.678, L400.0001 ####[facility] [address] [place], [address] Mucus Ql (Urine sed) Normal [facility] Comment on above: Order Comment: CLEAN CATCH Result Comment: Canc elled via OM: MD Ordered Performed By: #### M 100.678, L400.0001 ####[facility] [address] [place], [address] Nitrite Ql (U) Normal Negative [facility] Comment on above: Order Comment: CLEAN CATCH Result Comment: Canc elled via OM: MD Ordered Performed By: #### M 100.678, L400.0001 ####[facility] [address] [place], [address] OCCULT BLOOD-UR Normal Negative [facility] Comment on above: Order Comment: CLEAN CATCH Result Comment: Canc elled via OM: MD Ordered Performed By: #### M 100.678, L400.0001 ####[facility] [address] [place], [address] pH UR Normal 5.0 - 8.0 [facility] Comment on above: Order Comment: CLEAN CATCH Result Comment: Canc elled via OM: MD Ordered Performed By: #### M 100.678, L400.0001 ####[facility] [address] [place], [address] PROT DIPSTX Normal Negative [facility] Comment on above: Order Comment: CLEAN CATCH Result Comment: Canc elled via OM: MD Ordered Performed By: #### M 100.678, L400.0001 ####[facility] [address] [place], [address] RBC Normal 0-5 [facility] Comment on above: Order Comment: CLEAN CATCH Result Comment: Canc elled via OM: MD Ordered Performed By: #### M 100.678, L400.0001 ####[facility] [address] [place], [address] SP.GR. DIPSTX Normal 1.002-1.030 [facility] Comment on above: Order Comment: CLEAN CATCH Result Comment: Canc elled via OM: MD Ordered Performed By: #### M 100.678, L400.0001 ####[facility] [address] [place], [address] UR Preservative Normal [facility] Comment on above: Order Comment: CLEAN CATCH Result Comment: Canc elled via OM: MD Ordered Performed By: #### M 100.678, L400.0001 ####[facility] [address] [place], [address] UROBILI Normal Normal [facility] Comment on above: Order Comment: CLEAN CATCH Result Comment: Canc elled via OM: MD Ordered Performed By: #### M 100.678, L400.0001 ####[facility] [address] [place], [address] WBC Normal 0-5 [facility] Comment on above: Order Comment: CLEAN CATCH Result Comment: Canc elled via OM: MD Ordered Performed By: #### M 100.678, L400.0001 ####[facility] [address] [place], [address] White blood cell (WBC) count Ordered By: Marty Woods on 10-05-2024 WBC (Bld) [#/Vol] 4.7 10*3/uL 4.4-11.0 [facility] aPTT Coag (PPP) [Time]Ordere d By: Marty Woods on 10-05-2024 aPTT Coag (Bld) [Time] 22.2 s Low 24.1-36.2 [facility] 36on 10-03-2024 36 Navigator contacted the office of Rhiannon Georges CNP at [facility]. Requested pulmonary function test and will scanned to media tab when available. [facility] [address] Johnson during C appt. Patient has a pericardial effusion and cardiac lesion. She has been lightheaded for a few days and expedited cardiology eval is recommended. Spoke with cardiology office at [phone] and arranged for appt with Dr. Luis at [address] Johnson will send patient right over. [facility] 36 Navigator received request from cardiothoracic surgery office to assist with expediting lung nodule clinic evaluation. Patient [place] away and C[facility] is hoping patient can be seen while on campus. Patient was seen by Dr. Lizandro Fortune this morning and needs pulmonary evaluation prior to surgical consideration. Verified prior images and reports from [facility] are available for review in PACS. Scanned imaging reports including CT chest imaging, thyroid imaging and provider office notes from medical oncology and pulmonary in [place] to the media tab. Patient will see Dr. Dayna Kamara now to further evaluate left hilar mass and adenopathy first noted on CT imaging 09/13/2024 in [place]. Normal [facility] 37on 10-03-2024 37 YOUR APPOINTMENT TOSusy RUELAS WAS WITH THE [facility] LUNG NODULE CLINIC, COPD CLINIC, PULMONARY AND SLEEP MEDICINE OFFICE. PLEASE CALL OUR OFFICE AT [phone] IF YOU HAVE NOT RECEIVED YOUR TEST [...] to make improvements. COVID-19 VACCINATION INFORMATION: PH. [phone] HEALTH.ORG/CORONAVIRUS/V ACCINE [facility] Central Scheduling [phone] [facility] Sleep Scheduling [phone] Normal [facility] Office Visiton 10-03-2024 Follow-up visit [id number] Karina Fernando Hans 1950 Date Provider Department Center 10/03/2024 [id number]-TUUFSSPHBBOWILFRIDO EDGAR [facility] JERAMIE [facility] [address] Family History Problem Relation Age of Onset Cancer Mother Cancer Father No Known Problems Sister No Known Problems Brother Heart disease Brother Family Status - Relation Status Age at Mother Father Sister Alive Brother Alive Brother Alive Level of Service:50200 ID OFFICE/OUTPATIENT NEW MODERATE MDM 45 MINUTES Reason for Visit and Comments: New Patient [542] Shortness of Breath [980223] - >1yr [facility] Follow-up visit [id number] Karina Fernando Hans 1950 Date Provider Department Center 10/03/2024 [id number]-IGAYOFP-HBGBFXYFB, C*[facility] PUL None Family History Problem Relation Age of Onset Cancer Mother Cancer Father No Known Problems Sister No Known Problems Brother Heart disease Brother Family Status - Relation Status Age at Mother Father Sister Alive Brother Alive Brother Alive Level of Service:59289 ID OFFICE/OUTPATIENT NEW MODERATE MDM 45 MINUTES Reason for Visit and Comments: New Patient [542] Normal [facility] Follow-up visit [id number] Karina Fernando 1950 F Date Provider Department Center 10/03/2024 [id number]-MIOTDJALIZANDRO FORTUNE [facility] None Family History Problem Relation Age of Onset Cancer Mother Cancer Father No Known Problems Sister No Known Problems Brother Heart disease Brother Family Status - Relation Status Age at Mother Father Sister Alive Brother Alive Brother Alive Level of Service:61019 ID OFFICE/OUTPATIENT NEW HIGH MDM 60 MINUTES Reason for Visit and Comments: New Patient [542] Normal [facility] Progress Noteon 10-03-2024 Progress Note [facility] Cardiology Note DATE of SERVICE:10/03/24 TIME of SERVICE: 2:41 PM Chief Complaint: Chief Complaint Patient presents with New Patient Shortness of Breath >1yr History of PresentIllness: Karina Fernando is a 73 y.o. female with a long history of tobacco use who was evaluated for shortness of breath. 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 She was seen by pulmonary and scheduled for a biopsy also seen by Dr. Fortune. In the meantime however an echocardiogram that was done at [facility] reported a small pericardial effusion and a mass on the patient's right intra-atrial septum. Her biopsy was canceled and she was referred here to cardiology for an evaluation. I reviewed the echocardiogram that was done at [facility], there is a very small hemodynamically insignificant [...] Units by mouth daily., Disp: , Rfl: Tosbnkpowtu-Gejryejgh-Tx lant (Trelegy Ellipta) 100-62.5-25 MCG/ACT aerosol powder , [...] capsule by mouth daily., Disp: , Rfl: Wyola-3 Fatty Acids (OMEGA 3 500 PO), Take [...] is 28.8 (more content not included)... Normal [facility] [place] [facility] [place] [facility] [address] [place] [id number] Pulmonary Patient Visit - New 10/03/2024 Referring Physician: TU HECTOR DO Reason for Referral: SOB History of Present Illness Karina Fernando is a 73 y.o. F with history of recurrent sinus infections, COPD on symbicort/albuterol, HTN who presented for a left hilar mass. Stated that in May she began having shortness of breath which worsened until she went to the ER in [place] in August. Found on CT with a left hilar mass, left upper lobe pleural-based mass, and moderate pericardial effusion. Evaluated by oncology and recommended for PET/CT, MRI brain, and biopsy. Established with pulmonology and had been planned for EBUS in [place] but canceled after TTE demonstrated a right [...] Medications Medication Documentation Review Audit Reviewed by Yaritza Johnson DO (Physician) on 10/03/24 at 1703 Medication Order Taking? Sig Documenting Provider Last Dose Status acetaminophen (Tylenol Extra Strength) 500 MG tablet [id number] Yes Take by mouth. Historical Provider, Not Taking Active albuterol (Ventolin HFA) 108 (90 Base) MCG/ACT inhaler [id number] Inhale 2 puffs every 4 hours as needed for wheezing or shortness of breath. Yaritza Johnson DO Active busPIRone (Buspar) 10 MG tablet [id number] Yes Take 10 mg by mouth 3 times daily as needed. Historical MD Jose Taking Active cetirizine (ZyrTEC) 10 MG tablet [id number] Yes Take 10 mg by mouth daily. Historical MD Jose Taking Active cholecalciferol (Vitamin D-3) 25 MCG (1000 UT) capsule [id number] Yes Take 1,000 Units by mouth daily. Historical MD Jose Active Hnyehetdcth-Sllzdzvtj-Gz lant (Trelegy Ellipta) 100-62.5-25 MCG/ACT aerosol powder [id number] Inhale 1 Inhalation daily. Yaritza Johnson, DO Active gabapentin (Neurontin) 300 MG capsule [id number] Yes Take 300 mg by mouth 3 times daily. Historical MD Jose Not Taking Active hydroCHLOROthiazide (HYDRODiuril) 25 MG tablet [id number] Yes Take 25 mg by mouth daily. Historical MD Jose Taking Active loratadine (Claritin) 5 MG chewable tablet [id number] Yes Chew 5 mg daily. Historical ProviderMD Active Melatonin 2.5 MG chewable tablet [id number] Yes Chew Daily as needed. Historical ProviderMD Not Taking Active meloxicam (Mobic) 15 MG tablet [id number] Yes Take by mouth daily. Historical ProviderMD Not Taking Active Multiple Vitamin (multivitamin) capsule [id number] Yes Take 1 capsule by mouth daily. Historical MD Jose Active Wyola-3 Fatty Acids (OMEGA 3 500 PO) [id number] Yes Take by mouth daily. Historical MD Jose Taking Active oxyCODONE-acetaminophen (Percocet) 5-325 MG tablet [id number] Yes Historical ProviderMD Taking Active simvastatin (Zocor) 20 MG tablet [id number] Yes Take 20 mg by mouth Nightly. Historical ProviderMD Taking Active traZODone (Desyrel) 100 MG tablet [id number] Yes Take 100 mg by mouth Nightly. Historical MD Jose Taking Active valACYclovir (Valtrex) 500 MG tablet [id number] Yes Take by mouth daily. Historical MD Jose Not Taking Active Vitamin E 268 MG (400 UNIT) capsule [id number] Yes Take by mouth daily. Historical MD Jose Taking Active Social History Social History Tobacco Use Smoking status: Former Average packs/day: (more content not included)... Normal [facility] Progress Note [facility] CARDIOVASCULAR & THORACIC SURGERY [address] [facility] [address] Dept: [phone] Dept Loc: [phone] Visit type: New Reason for Visit: AP [...] effusion. Per note, pt had presented to [place] ED in August 2023 for dyspnea. CTA [...] tablet, Take by mouth., Disp: , Rfl: Wyola-3 Fatty Acids (OMEGA 3 500 PO), Take [...] mucus m (more content not included)... Normal [facility] Office Visit Reporton 2024 Office Visit Report Normal [facility] Activated partial thrombopla stin time (aPTT) in platelet poor plasma by coagulation aOrdered By: Rhiannon Georges on 09-22-2024 aPTT Coag (PPP) [Time] 21.2 s Low 24.1-36.2 [facility] International normalized rat io (INR) calculationOrdered By: Rhiannon Georges on 09-22-2024 INR Coag (Bld) [Relative time] 0.9 {INR} [facility] Partial Thromboplast Timeon 09-22-2024 aPTT Coag (Bld) [Time] 21.2 s Low 24.1-36.2 [facility] Comment on above: Performed By: #### L 300.3900, L300.4310 ####[facility] [address] [place], [place], [id number] Prothrombin Time w/INRon INR Coag (PPP) [Relative time] 0.9 {INR} Normal [facility] Comment on above: Performed By: #### L 300.3900, L300.4310 ####[facility] [address] [place], [address] PT Coag (PPP) [Time] 12.8 s Normal 11.7-14.9 [facility] Comment on above: Performed By: #### L 300.3900, L300.4310 ####[facility] [address] [place], [address] Prothrombin timeOrdered By: Rhiannon Georges on 09-22-2024 PT Coag (PPP) [Time] 12.8 s 11.7-14.9 [facility] Pulmonary Visit Reporton Pulmonary Visit Report Normal [facility] aPTT Coag (PPP) [Time]Ordere d By: Rhiannon Georges on 09-22-2024 aPTT Coag (Bld) [Time] 21.2 s Low 24.1-36.2 [facility] US THYROIDon 09-19-2024 US THYROID ORIGINAL EXAMINATION: [...] four nodules should be followed. Interpreted by: Yuri Conklin DO Preliminary Report By: Yuri Conklin DO Electronically signed By Yuri Conklin DO Dictated Date: 09/19/2024 12:58:33 PM Prelim Date: 09/19/2024 1:04:03 PM Sign Date: 09/19/2024 1:04:03 PM Ordering Provider: JOSELIN MAURER [facility] Oncology Visit Reporton Oncology Visit Report Normal [facility] XR CHEST 2 VIEWSon XR CHEST 2 [...] team directed to call report. Interpreted by: Yuri Conklin DO Preliminary Report By: Yuri Conklin DO Electronically signed By Yuri Conklin DO Dictated Date: 09/14/2024 4:49:49 PM Prelim Date: 09/14/2024 4:52:34 PM Sign Date: 09/14/2024 4:52:34 PM Ordering Provider: JOSELIN MAURER [facility] .GFRon 09-13-2024 Estimated Glomerular Filtration Rate 50 ml/min/1.73sqm [facility] Comment on above: Result Comment: Stages of [...] calculate the eGFR results. Performed By: #### P BNP, GFR, TSH, FT4, DIFF, MORPH, CMP, CBC #### [place] [address] .Manual Diffon 09-13-2024 Basophil %, Manual 0.0 % Normal 0.0-2.5 [facility] Comment on above: Performed By: #### P BNP, GFR, TSH, FT4, DIFF, MORPH, CMP, CBC #### [place] [address] Basophil, Abs Manual 0.0 10 3/mcL Normal 0.0-0.2 [facility] Comment on above: Performed By: #### P BNP, GFR, TSH, FT4, DIFF, MORPH, CMP, CBC #### [place] [address] Eosinophil %, Manual 0.0 % Normal 0.0-7.0 [facility] Comment on above: Performed By: #### P BNP, GFR, TSH, FT4, DIFF, MORPH, CMP, CBC #### [place] [address] Eosinophil, Abs Manual 0.0 10 3/mcL Normal 0.0-0.7 [facility] Comment on above: Performed By: #### P BNP, GFR, TSH, FT4, DIFF, MORPH, CMP, CBC #### [place] [address] Lymphocyte %, Manual 32.0 % Normal 20.0-40.0 [facility] Comment on above: Performed By: #### P BNP, GFR, TSH, FT4, DIFF, MORPH, CMP, CBC #### [address] [address] Lymphocyte, Abs Manual 1.8 10 3/mcL Normal 0.9-4.3 [facility] Comment on above: Performed By: #### P BNP, GFR, TSH, FT4, DIFF, MORPH, CMP, CBC #### [address] [address] Monocyte %, Manual 16.0 % High 2.0-13.0 [facility] Comment on above: Performed By: #### P BNP, GFR, TSH, FT4, DIFF, MORPH, CMP, CBC #### [address] [address] Monocyte, Abs Manual 0.9 10 3/mcL Normal 0.1-1.4 [facility] Comment on above: Performed By: #### P BNP, GFR, TSH, FT4, DIFF, MORPH, CMP, CBC #### [address] [address] Neutrophil %, Manual 52.0 % Normal 50.0-75.0 [facility] Comment on above: Performed By: #### P BNP, GFR, TSH, FT4, DIFF, MORPH, CMP, CBC #### [address] [address] Neutrophil, Abs Manual 2.9 10 3/mcL Normal 2.3-8.1 [facility] Comment on above: Performed By: #### P BNP, GFR, TSH, FT4, DIFF, MORPH, CMP, CBC #### [address] [address] Nucleated RBC 0.0 /100 WBC Normal [facility] Comment on above: Performed By: #### P BNP, GFR, TSH, FT4, DIFF, MORPH, CMP, CBC #### [address] [address] .Morphon 09-13-2024 Anisocytosis Ql (Bld) 2+ Normal [facility] Comment on above: Performed By: #### P BNP, GFR, TSH, FT4, DIFF, MORPH, CMP, CBC #### [place] [address] [place], [place] [address] Microcytosis 2+ Normal [facility] Comment on above: Performed By: #### P BNP, GFR, TSH, FT4, DIFF, MORPH, CMP, CBC #### [place] [address] [place], [place] [address] Platelet Estimate Normal Normal [facility] Comment on above: Performed By: #### P BNP, GFR, TSH, FT4, DIFF, MORPH, CMP, CBC #### [place] [address] [place], [place] [address] 12 Lead EKGon 09-13-2024 12 Lead EKG Normal [facility] Absolute lymphocyte countOrd ered By: ED PROVIDER on 09-13-2024 Lymphocytes Auto (Unsp spec) [#/Vol] 1.62 10*3/uL 0.83-4.51 [facility] Absolute neutrophil countOrd ered By: ED PROVIDER on 09-13-2024 Neutrophils (Bld) [#/Vol] 3.0 10*3/uL 2.0-7.7 [facility] Atypical lymphocyte percenta geOrdered By: ED PROVIDER on 09-13-2024 Atypical Lymphocytes 1+ % [facility] Automated lymphocyte count a s percentage of total leukocytesOrdered By: ED PROVIDER on 09-13-2024 Lymphocytes/100 WBC Auto (Unsp spec) 29.3 % 19-41 [facility] BUN/creatinine ratioOrdered By: ED PROVIDER on 09-13-2024 Urea nitrogen/Creatinine [Mass ratio] 8.2 mg/mg Low - [facility] Basic Metabolic Profile (BMP )on 09-13-2024 Anion gap [Moles/Vol] 12 mmol/L Normal 5-[address] [facility] Comment on above: Performed By: #### L 100.0100, L500.2500 ####[facility] [address] [place], [address] BUN/CRE 8.2 RATIO Low 05-07 [facility] Comment on above: Performed By: #### L 100.0100, L500.2500 ####[facility] [address] [place], [address] Calcium [Mass/Vol] 9.1 mg/dL Normal 7.6-11.0 [facility] Comment on above: Performed By: #### L 100.0100, L500.2500 ####[facility] [address] [place], [address] Chloride [Moles/Vol] 101 mmol/L Normal 96-108 [facility] Comment on above: Performed By: #### L 100.0100, L500.2500 ####[facility] [address] [place], [address] CO2 [Moles/Vol] 27.1 mmol/L Normal 22.0-29.0 [facility] Comment on above: Performed By: #### L 100.0100, L500.2500 ####[facility] [address] [place], [address] Creatinine [Mass/Vol] 1.0 mg/dL Normal 0.6-1.[address] [facility] Comment on above: Performed By: #### L 100.0100, L500.2500 ####[facility] [address] [place], [address] GFR/1.73 sq M.predicted among non-blacks MDRD (S/P/Bld) [Vol rate/Area] 62 mL/min/{1.73_m2} Normal >60 [facility] Comment on above: Result Comment: mL/m in/1.73m2 CKD-EPI Creatinine Equation (2020) Performed By: #### L 100.0100, L500.2500 ####[facility] [address] [place], [address] Glucose [Mass/Vol] 112 mg/dL High 70-99 [facility] Comment on above: Performed By: #### L 100.0100, L500.2500 ####[facility] [address] [place], [address] Potassium [Moles/Vol] 4.1 mmol/L Normal 3.3-5.[address] [facility] Comment on above: Performed By: #### L 100.0100, L500.2500 ####[facility] [address] [place], [address] Sodium [Moles/Vol] 139 mmol/L Normal 133-145 [facility] Comment on above: Performed By: #### L 100.0100, L500.2500 ####[facility] [address] [place], [address] Urea nitrogen [Mass/Vol] 8 mg/dL Normal 4-19 [facility] Comment on above: Performed By: #### L 100.0100, L500.2500 ####[facility] [address] [place], [address] Basophil percentageOrdered B y: ED PROVIDER on 09-13-2024 Basophils/100 WBC (Bld) 0.7 % 0-1 [facility] Ql (Bld)Ordere d By: ED PROVIDER on 09-13-2024 [place] Cells RARE [facility] CBCon 09-13-2024 Erythrocyte distribution width (RBC) [Ratio] 25.1 % High 11.5-15.5 [facility] Comment on above: Performed By: #### P BNP, GFR, TSH, FT4, DIFF, MORPH, CMP, CBC #### [place] [address] [place], [place] [address] Hematocrit (Bld) [Volume fraction] 36.6 % Normal 34.0-46.0 [facility] Comment on above: Performed By: #### P BNP, GFR, TSH, FT4, DIFF, MORPH, CMP, CBC #### [place] [address] [place], [place] [address] Hgb 11.7 G/dL Low 12.0-16.0 [facility] Comment on above: Performed By: #### P BNP, GFR, TSH, FT4, DIFF, MORPH, CMP, CBC #### [address] [address] MCH (RBC) [Entitic mass] 25.1 pg Low 27.0-33.0 [facility] Comment on above: Performed By: #### P BNP, GFR, TSH, FT4, DIFF, MORPH, CMP, CBC #### [address] [address] MCHC 32.0 G/dL Normal 32.0-36.0 [facility] Comment on above: Performed By: #### P BNP, GFR, TSH, FT4, DIFF, MORPH, CMP, CBC #### [address] [address] MCV (RBC) [Entitic vol] 78.7 fL Low 80.0-99.0 [facility] Comment on above: Performed By: #### P BNP, GFR, TSH, FT4, DIFF, MORPH, CMP, CBC #### [address] [address] Platelet 283 10 3/mcL Normal 150-450 [facility] Comment on above: Performed By: #### P BNP, GFR, TSH, FT4, DIFF, MORPH, CMP, CBC #### [address] [address] Platelet mean volume (Bld) [Entitic vol] 7.0 fL Normal 6.6-10.5 [facility] Comment on above: Performed By: #### P BNP, GFR, TSH, FT4, DIFF, MORPH, CMP, CBC #### [address] [address] RBC 4.66 10 6/mcL Normal 4.10-5.30 [facility] Comment on above: Performed By: #### P BNP, GFR, TSH, FT4, DIFF, MORPH, CMP, CBC #### [address] [address] WBC 5.6 10 3/mcL Normal 4.5-10.8 [facility] Comment on above: Performed By: #### P BNP, GFR, TSH, FT4, DIFF, MORPH, CMP, CBC #### [address] [place], [place] [address] CBC W/Diff, Automatedon 02- FIDE CELLS RARE Normal [facility] Comment on above: Performed By: #### L 100.0100, L500.2500 ####[facility] [address] [place], [address] Anisocytosis Ql (Bld) 1+ Normal [facility] Comment on above: Performed By: #### L 100.0100, L500.2500 ####[facility] [address] [place], [address] ATYPICAL LYMPH 1+ Normal [facility] Comment on above: Performed By: #### L 100.0100, L500.2500 ####[facility] [address] [place], [address] [employer] CELLS 1+ Normal [facility] Comment on above: Performed By: #### L 100.0100, L500.2500 ####[facility] [address] [place], [address] CMPon 09-13-2024 Albumin Level 3.6 G/dL Normal 3.4-4.8 [facility] Comment on above: Performed By: #### P BNP, GFR, TSH, FT4, DIFF, MORPH, CMP, CBC #### [address] [place], [place] [address] Albumin/Globulin [Mass ratio] 1.1 {ratio} Normal 1.1-2.5 [facility] Comment on above: Performed By: #### P BNP, GFR, TSH, FT4, DIFF, MORPH, CMP, CBC #### [place] [address] [place], [place] [address] ALP [Catalytic activity/Vol] 67 U/L Normal 40-135 [facility] Comment on above: Performed By: #### P BNP, GFR, TSH, FT4, DIFF, MORPH, CMP, CBC #### [address] [address] ALT [Catalytic activity/Vol] 28 U/L Normal 14-59 [facility] Comment on above: Performed By: #### P BNP, GFR, TSH, FT4, DIFF, MORPH, CMP, CBC #### [address] [address] AST [Catalytic activity/Vol] 20 U/L Normal 10-40 [facility] Comment on above: Performed By: #### P BNP, GFR, TSH, FT4, DIFF, MORPH, CMP, CBC #### [place] [id number] Bili Total 0.2 mg/dL Normal 0.2-1.0 [facility] Comment on above: Result Comment: Use of this assay is not recommended for patients undergoing treatment with eltrombopag due to the potential for falsely elevated results. Performed By: #### P BNP, GFR, TSH, FT4, DIFF, MORPH, CMP, CBC #### [place] [id number] BUN/Creatinine Ratio 7 ratio Normal 7-27 [facility] Comment on above: Performed By: #### P BNP, GFR, TSH, FT4, DIFF, MORPH, CMP, CBC #### [address] [address] Calcium [Mass/Vol] 9.6 mg/dL Normal 8.4-10.2 [facility] Comment on above: Performed By: #### P BNP, GFR, TSH, FT4, DIFF, MORPH, CMP, CBC #### [address] [address] Chloride [Moles/Vol] 102 mmol/L Normal 98-107 [facility] Comment on above: Performed By: #### P BNP, GFR, TSH, FT4, DIFF, MORPH, CMP, CBC #### [address] [address] CO2 [Moles/Vol] 34 mmol/L High 23-31 [facility] Comment on above: Performed By: #### P BNP, GFR, TSH, FT4, DIFF, MORPH, CMP, CBC #### [address] [address] Creatinine [Mass/Vol] 1.16 mg/dL High 0.55-1.02 [facility] Comment on above: Result Comment: Test ing performed on [employer] Dimension EXL analyzer using a modified kinetic Cristina technique. Performed By: #### P BNP, GFR, TSH, FT4, DIFF, MORPH, CMP, CBC #### [address] [address] Electrolyte Balance 3.0 mEq/L Low 4.0-15.[address] [facility] Comment on above: Performed By: #### P BNP, GFR, TSH, FT4, DIFF, MORPH, CMP, CBC #### [address] [address] Globulin 3.3 G/dL Normal 1.5-3.8 [facility] Comment on above: Performed By: #### P BNP, GFR, TSH, FT4, DIFF, MORPH, CMP, CBC #### [address] [address] Glucose [Mass/Vol] 94 mg/dL Normal 83-110 [facility] Comment on above: Performed By: #### P BNP, GFR, TSH, FT4, DIFF, MORPH, CMP, CBC #### [address] [address] Potassium [Moles/Vol] 3.8 mmol/L Normal 3.5-5.1 [facility] Comment on above: Performed By: #### P BNP, GFR, TSH, FT4, DIFF, MORPH, CMP, CBC #### [address] [address] Sodium [Moles/Vol] 139 mmol/L Normal 136-145 [facility] Comment on above: Performed By: #### P BNP, GFR, TSH, FT4, DIFF, MORPH, CMP, CBC #### [place] [address] [place], [place] [address] Total Protein 6.9 G/dL Normal 6.4-8.2 [facility] Comment on above: Performed By: #### P BNP, GFR, TSH, FT4, DIFF, MORPH, CMP, CBC #### [place] [address] [place], [place] [address] Urea nitrogen [Mass/Vol] 8 mg/dL Normal 7-18 [facility] Comment on above: Performed By: #### P BNP, GFR, TSH, FT4, DIFF, MORPH, CMP, CBC #### [place] [address] [place], [place] [address] CTA Chest W/WO Contraston CTA Chest W/WO Contrast Normal [facility] Carbon dioxide measurementOr dered By: ED PROVIDER on 09-13-2024 CO2 [Moles/Vol] 27.1 mmol/L 22.0-29.0 [facility] Chest PA and Lateralon 09-13 Chest PA and Lateral Normal [facility] Chloride measurementOrdered By: ED PROVIDER on 09-13-2024 Chloride [Moles/Vol] 101 mmol/L 96-108 [facility] Creatinine [Moles/Vol]Ordere d By: ED PROVIDER on 09-13-2024 Creatinine [Mass/Vol] 1.0 mg/dL 0.6-1.[address] [facility] Crenated erythrocyte detecti on by light microscopyOrdered By: ED PROVIDER on 09-13-2024 [place] cells LM Ql (Bld) RARE [facility] Emergency Department Summary on 09-13-2024 Emergency Department Summary Normal [facility] Eosinophil percentageOrdered By: ED PROVIDER on 09-13-2024 Eosinophils/100 WBC (Bld) 0.4 % 0-5 [facility] Erythrocyte distribution wid th ratioOrdered By: ED PROVIDER on 09-13-2024 Erythrocyte distribution width (RBC) [Ratio] 22.8 % High 11.6-14.6 [facility] Erythrocyte distribution wid th standard deviationOrdered By: ED PROVIDER on 09-13-2024 Erythrocyte distribution width (RBC) [Entitic vol] 65.5 fL High 35.1-43.9 [facility] Erythrocyte distribution width (RBC) [Ratio] 65.5 fl High 35.1-43.9 [facility] FT4on 09-13-2024 Free T4 [Mass/Vol] 1.15 ng/dL Normal 0.76-1.46 [facility] Comment on above: Performed By: #### P BNP, GFR, TSH, FT4, DIFF, MORPH, CMP, CBC #### [place] [address] [place], [place] [address] GFR/1.73 sq M.predicted ty g non-blacks MDRD (S/P/Bld) [Vol rate/Area]Ordered By: ED PROVIDER on 09-13-2024 Estimated GFR (MDRD) Non-Af Amer 62 >60 [facility] Comment on above: mL/min/1.73m2 CKD-EP I Creatinine Equation (2020) Glomerular filtration rate ( GFR) estimation/1.73 sq m using serum, plasma, or whole bOrdered By: ED PROVIDER on 09-13-2024 GFR/1.73 sq M.predicted among non-blacks MDRD (S/P/Bld) [Vol rate/Area] 62 mL/min/{1.73_m2} >60 [facility] Comment on above: mL/min/1.73m2 CKD-EP I Creatinine Equation (2020) Hematocrit Auto (Bld) [Volum e fraction]Ordered By: ED PROVIDER on 09-13-2024 Hematocrit (Bld) [Volume fraction] 37.7 % 37-47 [facility] Hemoglobin measurementOrdere d By: ED PROVIDER on 09-13-2024 Hemoglobin (Bld) [Mass/Vol] 11.4 g/dL Low 12.0-15.0 [facility] Immature granulocytes/100 WB C Auto (Bld)Ordered By: ED PROVIDER on 09-13-2024 Immature granulocytes/100 WBC (Bld) 0.400 % 0.0-0.9 [facility] Comment on above: IG% - Immature Granu locytes (promyelocytes, myelocytes and metamyelocytes) > 1% indicates that a LEFT SHIFT is Present. Influenza virus A and B and SARS-CoV-2 (COVID-19) and Respiratory syncytial virus RNAOrdered By: Chris Maria on 09-13-2024 SARS-CoV-2 (COVID-19) RNA MIGUE+probe Ql (Unsp spec) [facility] L501.4021on 09-13-2024 Trop T High Sen 19 ng/L High <=14 [facility] Comment on above: Performed By: #### L 501.4021 ####[facility] [address] [place], [address] LABORATORYOrdered By: SYSTEM SYSTEM on 09-13-2024 Albumin [...] 09-13-2024 Anisocytosis Ql (Bld) 1+ [facility] Lymphocytes Auto (Unsp spec) [#/Vol]Ordered By: ED PROVIDER on 09-13-2024 Lymphocytes (Bld) [#/Vol] 1.62 10*3/uL 0.83-4.51 [facility] Lymphocytes/100 WBC Auto (Un sp spec)Ordered By: ED PROVIDER on 09-13-2024 Lymphocytes/100 WBC (Bld) 29.3 % 19-41 [facility] M100.678on 09-13-2024 M100.678 SARS-CoV-2 (COVID 19 ) Negative INFLUENZA A Negative INFLUENZA B Negative RSV PCR Negative Normal [facility] Comment on above: Performed By: #### M 100.678 ####[facility] [address] [place], [address] MCV (mean corpuscular volume ) determinationOrdered By: ED PROVIDER on 09-13-2024 MCV (RBC) [Entitic vol] 81.6 fL 81-99 [facility] Mean corpuscular hemoglobin (MCH) determinationOrdered By: ED PROVIDER on 09-13-2024 MCH (RBC) [Entitic mass] 24.7 pg Low 27.0-32.0 [facility] Mean corpuscular hemoglobin concentration (MCHC) determinationOrdered By: ED PROVIDER on 09-13-2024 MCHC (RBC) [Mass/Vol] 30.2 g/dL Low 32-[address] [facility] Mean platelet volume determi nationOrdered By: ED PROVIDER on 09-13-2024 Platelet mean volume (Bld) [Entitic vol] 8.5 fL 6.2-12.0 [facility] Monocyte percentageOrdered B y: ED PROVIDER on 09-13-2024 Monocytes/100 WBC (Bld) 14.3 % High 0-10 [facility] Neutrophil percentageOrdered By: ED PROVIDER on 09-13-2024 Neutrophils/100 WBC (Bld) 54.9 % 47-70 [facility] No Panel InformationOrdered By: Chris Maria on 09-13-2024 Troponin T High Sensitivity 19 ng/L High <14 [facility] Nucleated red blood cell per centageOrdered By: ED PROVIDER on 09-13-2024 Nucleated RBC/100 WBC (Bld) [Ratio] 0 % 0-5 [facility] PBNPon 09-13-2024 Natriuretic peptide B (Bld) [Mass/Vol] 235 pg/mL High 0-125 [facility] Comment on above: Result Comment: NT-p roBNP results of less than 300 pg/mL effectively rules out acute congestive heart failure with 99% negative predictive value. Performed By: #### P BNP, GFR, TSH, FT4, DIFF, MORPH, CMP, CBC #### [address] [place], [place] [address] Platelet countOrdered By: ED PROVIDER on 09-13-2024 Platelets (Bld) [#/Vol] 275 10*3/uL 150-450 [facility] RBC Auto (Bld) [#/Vol]Ordere d By: ED PROVIDER on 09-13-2024 RBC (Bld) [#/Vol] 4.62 10*6/uL 4.2-5.4 [facility] Serum glucose measurement (m ass/volume)Ordered By: ED PROVIDER on 09-13-2024 Glucose [Mass/Vol] 112 mg/dL High 70-99 [facility] Serum or plasma anion gap de termination (moles/volume)Ordered By: ED PROVIDER on 09-13-2024 Anion gap [Moles/Vol] 12 mmol/L 5-[address] [facility] Serum or plasma calcium usman urement (mass/volume)Ordered By: ED PROVIDER on 09-13-2024 Calcium [Mass/Vol] 9.1 mg/dL 7.6-11.0 [facility] Serum or plasma creatinine m easurement (moles/volume)Ordered By: ED PROVIDER on 09-13-2024 Creatinine [Moles/Vol] 1.0 mg/dL 0.6-1.0 [facility] Serum or plasma potassium me asurementOrdered By: ED PROVIDER on 09-13-2024 Potassium [Moles/Vol] 4.1 mmol/L 3.3-5.[address] [facility] Serum or plasma sodium measu rement (moles/volume)Ordered By: ED PROVIDER on 09-13-2024 Sodium [Moles/Vol] 139 mmol/L 133-145 [facility] Serum or plasma urea nitroge n measurement (mass/volume)Ordered By: ED PROVIDER on 09-13-2024 Urea nitrogen [Mass/Vol] 8 mg/dL 4-19 [facility] TSHon 09-13-2024 TSH Qn 0.88 m[IU]/L Normal 0.36-3.74 [facility] Comment on above: Performed By: #### P BNP, GFR, TSH, FT4, DIFF, MORPH, CMP, CBC #### [address] [place], [place] [address] TSH DL <= 0.005 mIU/L QnOrde red By: Chris Maria on 09-13-2024 Thyroid Stimulating Hormone (TSH) 0.644 uIU/mL 0.300-4.200 [facility] TSH Qn 0.644 uIU/mL 0.300-4.200 [facility] Target cell detectionOrdered By: ED PROVIDER on 09-13-2024 Target cells LM Ql (Bld) 1+ [facility] Target cells LM Ql (Bld)Orde red By: ED PROVIDER on 09-13-2024 Target Cells 1+ [facility] Thyroid Stim Hormone (TSH)on 09-13-2024 TSH 0.644 uIU/mL Normal 0.300-4.200 [facility] Comment on above: Performed By: #### L 501.9520 ####[facility] [address] [place], [address] White blood cell (WBC) count Ordered By: ED PROVIDER on 09-13-2024 WBC (Bld) [#/Vol] 5.5 10*3/uL 4.4-11.0 [facility] CNOVon 09-02-2024 CNOV Office Visit (UCWSTR ) -------- KARINA FERNANDO ([id number]) 1950 F Date Time Provider Department 09/02/24 1:15 PM [facility] During your visit today, we recorded the following information about you: Temperature Pulse Respiration Blood pressure 98.9 degrees 90/minute 18/minute 134/82 Weight 77.7 kg Dwayne Littlejohn MD 09/02/2024 3:54 PM Addendum Patient [...] not taking: Reported on 07/18/2018 ) oxycodone hcl/acetaminophen(PERCOC ET 10 MG-325 MG TAB) Take one tablet [...] AND INFLUEN (more content not included)... Normal [facility] Culture, Blood (WB)on 2023 CUB Blood cultures x2, f rom two different sites No growth in 5 days. Normal [facility] Comment on above: Performed By: #### L 503.600, M200.1000 ####[facility] [address] [place], [address] 12 Lead EKGon 06-20-2024 12 Lead EKG Normal [facility] Absolute neutrophil countOrd ered By: Anh Irene on 06-20-2024 Neutrophils (Bld) [#/Vol] 4.2 10*3/uL 2.0-7.7 [facility] Basic Metabolic Profile (BMP )on 06-20-2024 BUN/CRE 5.2 RATIO Low 10-20 [facility] Comment on above: Order Comment: 'TROP ' Serial specimen #1, #2 or #3: 1 Performed By: #### L 100.0100, L500.2500, L300.8000, L501.4020 ####[facility] [address] [place], [address] CA,Total 9.3 mg/dL Normal 8.5-10.1 [facility] Comment on above: Order Comment: 'TROP ' Serial specimen #1, #2 or #3: 1 Performed By: #### L 100.0100, L500.2500, L300.8000, L501.4020 ####[facility] [address] [place], [address] Chloride [Moles/Vol] 110 mmol/L High 98-107 [facility] Comment on above: Order Comment: 'TROP ' Serial specimen #1, #2 or #3: 1 Performed By: #### L 100.0100, L500.2500, L300.8000, L501.4020 ####[facility] [address] [place], [address] CO2 [Moles/Vol] 27.0 mmol/L Normal 21.0-32.0 [facility] Comment on above: Order Comment: 'TROP ' Serial specimen #1, #2 or #3: 1 Performed By: #### L 100.0100, L500.2500, L300.8000, L501.4020 ####[facility] [address] [place], [address] Creatinine [Mass/Vol] 0.96 mg/dL Normal 0.55-1.[address] [facility] Comment on above: Order Comment: 'TROP ' Serial specimen #1, #2 or #3: 1 Result Comment: The validity of the calculated GFR GFRAA in patients over70 years has not been determined. Clinical correlation isessential. Performed By: #### L 100.0100, L500.2500, L300.8000, L501.4020 ####[facility] [address] [place], [address] ECRCL 51.19 ml/min Normal [facility] Comment on above: Order Comment: 'TROP ' Serial specimen #1, #2 or #3: 1 Performed By: #### L 100.0100, L500.2500, L300.8000, L501.4020 ####[facility] [address] [place], [address] EST GFR - AA 73 mL/min Normal >60 [facility] Comment on above: Order Comment: 'TROP ' Serial specimen #1, #2 or #3: 1 Result Comment: Afri can Mauritian GFR Calc Performed By: #### L 100.0100, L500.2500, L300.8000, L501.4020 ####[facility] [address] [place], [address] GAP 6 Normal 5-15 [facility] Comment on above: Order Comment: 'TROP ' Serial specimen #1, #2 or #3: 1 Performed By: #### L 100.0100, L500.2500, L300.8000, L501.4020 ####[facility] [address] [place], [address] GFR/1.73 sq M.predicted among non-blacks MDRD (S/P/Bld) [Vol rate/Area] 60 mL/min/{1.73_m2} Normal >60 [facility] Comment on above: Order Comment: 'TROP ' Serial specimen #1, #2 or #3: 1 Result Comment: Non- GFR Calc Performed By: #### L 100.0100, L500.2500, L300.8000, L501.4020 ####[facility] [address] [place], [address] Glucose [Mass/Vol] 105 mg/dL Normal 74-106 [facility] Comment on above: Order Comment: 'TROP ' Serial specimen #1, #2 or #3: 1 Result Comment: Fast ing Glucose result from 100 to 125 mg/dLsuggests IMPAIRED HOMEOSTASIS per A.D.A. criteria. Performed By: #### L 100.0100, L500.2500, L300.8000, L501.4020 ####[facility] [address] [place], [address] Potassium [Moles/Vol] 3.1 mmol/L Low 3.5-5.[address] [facility] Comment on above: Order Comment: 'TROP ' Serial specimen #1, #2 or #3: 1 Performed By: #### L 100.0100, L500.2500, L300.8000, L501.4020 ####[facility] [address] [place], [address] Sodium [Moles/Vol] 143 mmol/L Normal 136-145 [facility] Comment on above: Order Comment: 'TROP ' Serial specimen #1, #2 or #3: 1 Performed By: #### L 100.0100, L500.2500, L300.8000, L501.4020 ####[facility] [address] [place], [address] Urea nitrogen [Mass/Vol] 5 mg/dL Low 7-18 [facility] Comment on above: Order Comment: 'TROP ' Serial specimen #1, #2 or #3: 1 Performed By: #### L 100.0100, L500.2500, L300.8000, L501.4020 ####[facility] [address] [place], [address] Basophil percentageOrdered B y: Remus Ungur on 06-20-2024 Basophils/100 WBC (Bld) 0.4 % 0-1 [facility] Blood cultureOrdered By: Rem us Ungur on 06-20-2024 Bacteria identified Cx Nom (Bld) No growth in 5 days. [facility] Bacteria identified Cx Nom (Bld) No growth in 5 days. [facility] Blood urea nitrogen (BUN)/cr eatinine ratioOrdered By: Remus Ungur on 06-20-2024 Urea nitrogen/Creatinine [Mass ratio] 5.2 mg/mg Low 10-20 [facility] CBC W/Diff, Automatedon 12-0 Absolute Lymph 1.95 X10 3/uL Normal 0.83-4.51 [facility] Comment on above: Performed By: #### L 100.0100, L500.2500, L300.8000, L501.4020 ####[facility] [address] [place], [address] Absolute Neut 4.2 X10 3/uL Normal 2.0-7.7 [facility] Comment on above: Performed By: #### L 100.0100, L500.2500, L300.8000, L501.4020 ####[facility] [address] [place], [address] Basophils/100 WBC (Bld) 0.4 % Normal 0-1 [facility] Comment on above: Performed By: #### L 100.0100, L500.2500, L300.8000, L501.4020 ####[facility] [address] [place], [address] Eosinophils/100 WBC (Bld) 0.1 % Normal 0-5 [facility] Comment on above: Performed By: #### L 100.0100, L500.2500, L300.8000, L501.4020 ####[facility] [address] [place], [address] Erythrocyte distribution width (RBC) [Ratio] 19.7 % High 11.6-14.6 [facility] Comment on above: Performed By: #### L 100.0100, L500.2500, L300.8000, L501.4020 ####[facility] [address] [place], [address] Hematocrit (Bld) [Volume fraction] 32.8 % Low 37-47 [facility] Comment on above: Performed By: #### L 100.0100, L500.2500, L300.8000, L501.4020 ####[facility] [address] [place], [address] Hemoglobin (Bld) [Mass/Vol] 9.2 g/dL Low 12.0-15.0 [facility] Comment on above: Performed By: #### L 100.0100, L500.2500, L300.8000, L501.4020 ####[facility] [address] [place], [address] IG% 0.400 Normal 0.0-0.9 [facility] Comment on above: Result Comment: IG% - Immature Granulocytes (promyelocytes, myelocytes andmetamyelocytes) > 1% indicates that a LEFT SHIFT is Present. Performed By: #### L 100.0100, L500.2500, L300.8000, L501.4020 ####[facility] [address] [place], [address] Lymphocytes/100 WBC (Bld) 27.8 % Normal 19-41 [facility] Comment on above: Performed By: #### L 100.0100, L500.2500, L300.8000, L501.4020 ####[facility] [address] [place], [address] MCH (RBC) [Entitic mass] 20.4 pg Low 27.0-32.0 [facility] Comment on above: Performed By: #### L 100.0100, L500.2500, L300.8000, L501.4020 ####[facility] [address] [place], [address] MCHC (RBC) [Mass/Vol] 28.0 g/dL Low 32-[address] [facility] Comment on above: Performed By: #### L 100.0100, L500.2500, L300.8000, L501.4020 ####[facility] [address] [place], [address] MCV (RBC) [Entitic vol] 72.7 fL Low 81-99 [facility] Comment on above: Performed By: #### L 100.0100, L500.2500, L300.8000, L501.4020 ####[facility] [address] [place], [address] Monocytes/100 WBC (Bld) 11.0 % High 0-10 [facility] Comment on above: Performed By: #### L 100.0100, L500.2500, L300.8000, L501.4020 ####[facility] [address] [place], [address] Neutrophils/100 WBC (Bld) 60.3 % Normal 47-70 [facility] Comment on above: Performed By: #### L 100.0100, L500.2500, L300.8000, L501.4020 ####[facility] [address] [place], [address] Nucleated RBC (Bld) [#/Vol] 0 10*3/uL Normal 0-5 [facility] Comment on above: Performed By: #### L 100.0100, L500.2500, L300.8000, L501.4020 ####[facility] [address] [place], [address] Platelet mean volume (Bld) [Entitic vol] 8.4 fL Normal 6.2-12.0 [facility] Comment on above: Performed By: #### L 100.0100, L500.2500, L300.8000, L501.4020 ####[facility] [address] [place], [address] Platelets (Bld) [#/Vol] 332 10*3/uL Normal 150-450 [facility] Comment on above: Performed By: #### L 100.0100, L500.2500, L300.8000, L501.4020 ####[facility] [address] [place], [address] RBC (Bld) [#/Vol] 4.51 10*6/uL Normal 4.2-5.4 [facility] Comment on above: Performed By: #### L 100.0100, L500.2500, L300.8000, L501.4020 ####[facility] [address] [place], [address] RDW SD 51.4 fl High 35.1-43.9 [facility] Comment on above: Performed By: #### L 100.0100, L500.2500, L300.8000, L501.4020 ####[facility] [address] [place], [address] WBC (Bld) [#/Vol] 7.0 10*3/uL Normal 4.4-11.0 [facility] Comment on above: Performed By: #### L 100.0100, L500.2500, L300.8000, L501.4020 ####[facility] [address] [place], [address] Carbon dioxide measurementOr dered By: Anh Irene on 06-20-2024 CO2 [Moles/Vol] 27.0 mmol/L 21.0-32.0 [facility] Chest 1 View (Portable)on Chest 1 View (Portable) Normal [facility] Chloride measurementOrdered By: Anh Irene on 06-20-2024 Chloride [Moles/Vol] 110 mmol/L High 98-107 [facility] D-Dimer Quantitative (DVT/PE )on 06-20-2024 D-DIMER QUANT 0.46 FEU/ug/m Normal 0.27-0.49 [facility] Comment on above: Result Comment: NORM AL D-Dimer level (<0.50) indicates no DVT or PE. Performed By: #### L 100.0100, L500.2500, L300.8000, L501.4020 ####[facility] [address] [place], [address] D-dimer measurement for deep venous thrombosisOrdered By: Anh Irene on 06-20-2024 D-Dimer Quantitative (PE/DVT) 0.46 FEU/ug/m 0.27-0.49 [facility] Comment on above: NORMAL D-Dimer level (<0.50) indicates no DVT or PE. Emergency Department Summary on 06-20-2024 Emergency Department Summary Normal [facility] Eosinophil percentageOrdered By: Anh Irene on 06-20-2024 Eosinophils/100 WBC (Bld) 0.1 % 0-5 [facility] Erythrocyte distribution wid th ratioOrdered By: Anh Irene on 06-20-2024 Erythrocyte distribution width (RBC) [Ratio] 19.7 % High 11.6-14.6 [facility] Erythrocyte distribution wid th standard deviationOrdered By: Anh Irene on 06-20-2024 Erythrocyte distribution width (RBC) [Entitic vol] 51.4 fL High 35.1-43.9 [facility] Estimated glomerular filtrat ion rate (GFR) AmericanOrdered By: Anh Irene on 06-20-2024 Estimated GFR (MDRD) Amer 73 mL/min >60 [facility] Comment on above: GFR Calc Estimation of creatinine nikki aranceOrdered By: Anh Irene on 06-20-2024 Estimated Creatinine Clearance Calc 51.19 ml/min [facility] Glomerular filtration rate ( GFR) estimationOrdered By: Anh Irene on 06-20-2024 Estimated GFR (MDRD) Non-Af Amer 60 mL/min >60 [facility] Comment on above: Non- GFR Calc Glucose measurementOrdered B y: Anh Irene on 06-20-2024 Glucose [Mass/Vol] 105 mg/dL 74-106 [facility] Comment on above: Fasting Glucose resu lt from 100 to 125 mg/dL suggests IMPAIRED HOMEOSTASIS per A.D.A. criteria. Hematocrit Auto (Bld) [Volum e fraction]Ordered By: Anh Irene on 06-20-2024 Hematocrit (Bld) [Volume fraction] 32.8 % Low 37-47 [facility] Hemoglobin measurementOrdere d By: Anh Irene on 06-20-2024 Hemoglobin (Bld) [Mass/Vol] 9.2 g/dL Low 12.0-15.0 [facility] Immature granulocytes/100 WB C Auto (Bld)Ordered By: Anh Irene on 06-20-2024 Immature granulocytes/100 WBC (Bld) 0.400 % 0.0-0.9 [facility] Comment on above: IG% - Immature Granu locytes (promyelocytes, myelocytes and metamyelocytes) > 1% indicates that a LEFT SHIFT is Present. Influenza virus A and B and SARS-CoV-2 (COVID-19) and Respiratory syncytial virus RNAOrdered By: Anh Irene on 06-20-2024 SARS-CoV-2 (COVID-19) RNA MIGUE+probe Ql (Unsp spec) [facility] L501.4020on 06-20-2024 TROPONIN-I HS 7 pg/mL Normal 3.0-54.0 [facility] Comment on above: Order Comment: 'TROP ' Serial specimen #1, #2 or #3: 1 Result Comment: Moira hinds Note: New Test Units and Gender Specific Reference Ranges. For more information see Policy Stat Procedure [employer] High Sensitivity Troponin (TNIH) and attachments. Performed By: #### L 100.0100, L500.2500, L300.8000, L501.4020 ####[facility] [address] [place], [place], [id number] Lactic Acidon 06-20-2024 Lactate [Moles/Vol] 2.1 mmol/L Invalid Interpretation Code 0.4-1.9 [facility] Comment on above: Order Comment: PATIE NT DISCHARGED PRIOR TO THIS ORDER REFLEXINGY Result Comment: HERMES ENT DISCHARGED PRIOR TO THIS ORDER REFLEXINGCritical Result(s) Called at: 10:07:36 06/20/2024 by:Valery Howard. Results read back by same. Performed By: #### L 503.6005, M200.1000 ####[facility] [address] [place], [place], [id number] Lymphocytes Auto (Unsp spec) [#/Vol]Ordered By: Anh Irene on 06-20-2024 Lymphocytes (Bld) [#/Vol] 1.95 10*3/uL 0.83-4.51 [facility] Lymphocytes/100 WBC Auto (Un sp spec)Ordered By: Anh Irene on 06-20-2024 Lymphocytes/100 WBC (Bld) 27.8 % 19-41 [facility] M100.678on 06-20-2024 M100.678 Pending SARS-CoV-2 (COVID 19) Negative INFLUENZA A Negative INFLUENZA B Negative RSV PCR Negative Normal [facility] Comment on above: Performed By: #### M 100.678 ####[facility] [address] [place], [place], [id number] MCV (mean corpuscular volume ) determinationOrdered By: Anh Irene on 06-20-2024 MCV (RBC) [Entitic vol] 72.7 fL Low 81-99 [facility] Mean corpuscular hemoglobin (MCH) determinationOrdered By: Anh Irene on 06-20-2024 MCH (RBC) [Entitic mass] 20.4 pg Low 27.0-32.0 [facility] Mean corpuscular hemoglobin concentration (MCHC) determinationOrdered By: Anh Irene on 06-20-2024 MCHC (RBC) [Mass/Vol] 28.0 g/dL Low 32-[address] [facility] Mean platelet volume determi nationOrdered By: Anh Irene on 06-20-2024 Platelet mean volume (Bld) [Entitic vol] 8.4 fL 6.2-12.0 [facility] Monocyte percentageOrdered B y: Anh Irene on 06-20-2024 Monocytes/100 WBC (Bld) 11.0 % High 0-10 [facility] Neutrophil percentageOrdered By: Anh Irene on 06-20-2024 Neutrophils/100 WBC (Bld) 60.3 % 47-70 [facility] Nucleated red blood cell per centageOrdered By: Anh Irene on 06-20-2024 Nucleated RBC/100 WBC (Bld) [Ratio] 0 % 0-5 [facility] Platelet countOrdered By: Lili Irene on 06-20-2024 Platelets (Bld) [#/Vol] 332 10*3/uL 150-450 [facility] Potassium measurementOrdered By: Anh Alvaresbuck on 06-20-2024 Potassium [Moles/Vol] 3.1 mmol/L Low 3.5-5.[address] [facility] RBC Auto (Bld) [#/Vol]Ordere d By: Anh Alvaresbuck on 06-20-2024 RBC (Bld) [#/Vol] 4.51 10*6/uL 4.2-5.4 [facility] Serum anion gap measurementO rdered By: Anh Alvaresbuck on 06-20-2024 Anion gap [Moles/Vol] 6 mmol/L 5-[address] [facility] Serum or plasma calcium usman urement (mass/volume)Ordered By: Anh Alvaresbuck on 06-20-2024 Calcium [Mass/Vol] 9.3 mg/dL 8.5-10.1 [facility] Serum or plasma creatinine m easurement (mass/volume)Ordered By: Anh Alvaresbuck on 06-20-2024 Creatinine [Mass/Vol] 0.96 mg/dL 0.55-1.[address] [facility] Comment on above: The validity of the calculated GFR & GFRAA in patients over 70 years has not been determined. Clinical correlation is essential. Serum or plasma urea nitroge n measurement (mass/volume)Ordered By: Anh Alvaresbuck on 06-20-2024 Urea nitrogen [Mass/Vol] 5 mg/dL Low 7-18 [facility] Sodium levelOrdered By: Kaylee vigil Teto on 06-20-2024 Sodium [Moles/Vol] 143 mmol/L 136-145 [facility] Troponin IOrdered By: Anh Alvaresbuck on 06-20-2024 Troponin I High Sensitivity 7 pg/mL 3.0-54.0 [facility] Comment on above: Please Note: New Shirin t Units and Gender Specific Reference Ranges. For more information see Policy Stat Procedure [employer] High Sensitivity Troponin (TNIH) and attachments. White blood cell (WBC) count Ordered By: Anh Alvaresbuck on 06-20-2024 WBC (Bld) [#/Vol] 7.0 10*3/uL 4.4-11.0 [facility] 05-31-2024 [facility] Office Visit (UCWSTR ) -------- KARINA FERNANDO ([id number]) 1950 F Date Time Provider Department 05/31/24 4:45 PM SERGIO MOHR WSTR During your visit today, we recorded the following information about you: Temperature Pulse Respiration Blood pressure 99.1 degrees 94/minute 18/minute 140/84 Weight 75.4 kg Sergio Mohr PA-C 05/31/2024 5:48 PM Signed This note was created using [employer]. Subjective Karina Fernando is a 73 year [...] taking: Reported on 07/18/2018 ) 0 oxycodone hcl/acetaminophen(PERCOC ET 10 MG-325 MG TAB) Take one tablet [...] Mother Lipid (more content not included)... Normal [facility] XR CHEST 2V FRONTAL/LATon XR CHEST 2V FRONTAL/LAT * * *Final Report* * * DATE [...] IMPRESSION: Mild left base atelectasis or infiltrate Platform Architect: AMISHA Transcribe Date/Time: May 31 2024 5:27P Dictated by : JOSELYN VIDALES MD This examination was interpreted and the report reviewed and electronically signed by: JOSELYN VIDALES MD on May 31 2024 5:27PM EST [id number] Normal [facility] XR Chest PA and Lateralon IMPRESSION: Mild left base atelectasis or infiltrate Platform Architect: AMISHA Transcribe Date/Time: May 31 2024 5:27P [...] fractures. Hiatal hernia. DIVISION OF RADIOLOGY Provider, [facility] - 05/31/2024 * * *Final Report* [...] IMPRESSION: Mild left base atelectasis or infiltrate Platform Architect: AMISHA Transcribe Date/Time: May 31 2024 5:27P Dictated by : JOSELYN VIDALES MD This examination was interpreted and the report reviewed and electronically signed by: JOSELYN VIDALES MD on May 31 2024 5:27PM EST [facility] Radiology Study observation (narrative) [facility] XR Chest PA and LateralOrder ed By: [facility] Provider on 05-31-2024 [facility] .Auto Diffon 02-11-2024 Basophil, Absolute 0.0 10 3/mcL Normal 0.0-0.2 [facility] ([place]) Comment on above: Performed By: #### M ALBR #### [address] [address] Basophils/100 WBC (Bld) 1.1 % Normal 0.0-2.5 [facility] ([place]) Comment on above: Performed By: #### M ALBR #### [address] [address] Eosinophil, Absolute 0.0 10 3/mcL Normal 0.0-0.4 [facility] ([place]) Comment on above: Performed By: #### M ALBR #### [address] [address] Eosinophils/100 WBC (Bld) 1.0 % Normal 0.0-7.0 [facility] ([place]) Comment on above: Performed By: #### M ALBR #### [address] [address] Lymphocyte, Absolute 1.7 10 3/mcL Normal 0.8-3.9 [facility] ([place]) Comment on above: Performed By: #### M ALBR #### [address] [address] Lymphocytes/100 WBC (Bld) 51.4 % High 10.0-50.0 [facility] ([place]) Comment on above: Performed By: #### M ALBR #### [address] [address] Monocyte, Absolute 0.4 10 3/mcL Normal 0.2-1.0 [facility] ([place]) Comment on above: Performed By: #### M ALBR #### [address] [address] Monocytes/100 WBC (Bld) 11.4 % Normal 1.7-13.0 [facility] ([place]) Comment on above: Performed By: #### M ALBR #### [address] [address] Neutrophils/100 WBC (Bld) 35.1 % Low 37.0-80.0 [facility] ([place]) Comment on above: Performed By: #### M ALBR #### [place] [address] [address] .GFRon 02-11-2024 GFR 62 ml/min/1.73sqm Normal [facility] ([place]) Comment on above: Result Comment: GFR Population [...] ADIFF, GFR, MORPH, PBNP, MDW, CBC #### [address] [address] GFR Non- 51 ml/min/1.73sqm Normal [facility] ([place]) Comment on above: Result Comment: GFR Population [...] ADIFF, GFR, MORPH, PBNP, MDW, CBC #### [place] [address] .MDWon 02-11-2024 Monocyte Distribution Width 15.05 Normal 0.00-20.00 [facility]) Comment on above: Result Comment: For ED adult patients suspected of sepsis, MDW<=20.0 does not rule out sepsis or risk of sepsis Performed By: #### A MED, TROPHS, BMP, ADIFF, GFR, MORPH, PBNP, MDW, CBC #### [place] [address] .Morphon 02-11-2024 Platelet Estimate Normal Normal [facility] Comment on above: Performed By: #### A MED, TROPHS, BMP, ADIFF, GFR, MORPH, PBNP, MDW, CBC #### [place] [address] RBC morphology finding Nom (Bld) Normal Normal [facility]) Comment on above: Performed By: #### A MED, TROPHS, BMP, ADIFF, GFR, MORPH, PBNP, MDW, CBC #### [place] [address] .NEUABSon 02-11-2024 Neutrophil, Absolute 1.2 10 3/mcL Low 2.9-6.2 [facility]) Comment on above: Performed By: #### M ALBR #### [place] [address] BMPon 02-11-2024 BUN/Creatinine Ratio 10 ratio Normal 7-27 [facility], [facility]) Comment on above: Performed By: #### A MED, TROPHS, BMP, ADIFF, GFR, MORPH, PBNP, MDW, CBC #### [address] [address] Calcium [Mass/Vol] 9.4 mg/dL Normal 8.4-10.2 [facility] ([place]) Comment on above: Performed By: #### A MED, TROPHS, BMP, ADIFF, GFR, MORPH, PBNP, MDW, CBC #### [address] [address] Chloride [Moles/Vol] 104 mmol/L Normal 98-107 [facility] ([place]) Comment on above: Performed By: #### A MED, TROPHS, BMP, ADIFF, GFR, MORPH, PBNP, MDW, CBC #### [place] [address] CO2 [Moles/Vol] 32 mmol/L High 23-31 [facility] ([place]) Comment on above: Performed By: #### A MED, TROPHS, BMP, ADIFF, GFR, MORPH, PBNP, MDW, CBC #### [address] [address] Creatinine [Mass/Vol] 1.06 mg/dL High 0.55-1.02 [facility] ([place]) Comment on above: Performed By: #### A MED, TROPHS, BMP, ADIFF, GFR, MORPH, PBNP, MDW, CBC #### [address] [address] Electrolyte Balance 6.0 mEq/L Normal 4.0-15.0 [facility] ([place]) Comment on above: Performed By: #### A MED, TROPHS, BMP, ADIFF, GFR, MORPH, PBNP, MDW, CBC #### [address] [address] Glucose [Mass/Vol] 105 mg/dL Normal 83-110 [facility] ([place]) Comment on above: Performed By: #### A MED, TROPHS, BMP, ADIFF, GFR, MORPH, PBNP, MDW, CBC #### [address] [address] Potassium [Moles/Vol] 3.7 mmol/L Normal 3.5-5.1 [facility] ([place]) Comment on above: Performed By: #### A MED, TROPHS, BMP, ADIFF, GFR, MORPH, PBNP, MDW, CBC #### [address] [address] Sodium [Moles/Vol] 142 mmol/L Normal 136-145 [facility] ([place]) Comment on above: Performed By: #### A MED, TROPHS, BMP, ADIFF, GFR, MORPH, PBNP, MDW, CBC #### [place] [id number] Urea nitrogen [Mass/Vol] 11 mg/dL Normal 7-18 [facility] ([place]) Comment on above: Performed By: #### A MED, TROPHS, BMP, ADIFF, GFR, MORPH, PBNP, MDW, CBC #### [place] [id number] CBCon 02-11-2024 Erythrocyte distribution width (RBC) [Ratio] 18.4 % High 11.5-14.5 [facility] ([place]) Comment on above: Performed By: #### A MED, TROPHS, BMP, ADIFF, GFR, MORPH, PBNP, MDW, CBC #### [address] [address] Hematocrit (Bld) [Volume fraction] 31.6 % Low 37.0-47.0 [facility] ([place]) Comment on above: Performed By: #### A MED, TROPHS, BMP, ADIFF, GFR, MORPH, PBNP, MDW, CBC #### [address] [address] Hgb 9.8 G/dL Low 12.0-16.0 [facility] ([place]) Comment on above: Performed By: #### A MED, TROPHS, BMP, ADIFF, GFR, MORPH, PBNP, MDW, CBC #### [address] [address] MCH (RBC) [Entitic mass] 22.6 pg Low 27.0-31.2 [facility] ([place]) Comment on above: Performed By: #### A MED, TROPHS, BMP, ADIFF, GFR, MORPH, PBNP, MDW, CBC #### [address] [address] MCHC 31.1 G/dL Low 33.0-37.0 [facility] ([place]) Comment on above: Performed By: #### A MED, TROPHS, BMP, ADIFF, GFR, MORPH, PBNP, MDW, CBC #### [address] [address] MCV (RBC) [Entitic vol] 72.5 fL Low 80.0-94.0 [facility] ([place]) Comment on above: Performed By: #### A MED, TROPHS, BMP, ADIFF, GFR, MORPH, PBNP, MDW, CBC #### [address] [address] Platelet 310 10 3/mcL Normal 130-400 [facility] ([place]) Comment on above: Performed By: #### A MED, TROPHS, BMP, ADIFF, GFR, MORPH, PBNP, MDW, CBC #### [address] [address] Platelet mean volume (Bld) [Entitic vol] 6.5 fL Low 7.4-10.4 [facility] ([place]) Comment on above: Performed By: #### A MED, TROPHS, BMP, ADIFF, GFR, MORPH, PBNP, MDW, CBC #### [address] [address] RBC 4.36 10 6/mcL Normal 4.20-5.40 [facility] ([place]) Comment on above: Performed By: #### A MED, TROPHS, BMP, ADIFF, GFR, MORPH, PBNP, MDW, CBC #### [address] [address] WBC 3.3 10 3/mcL Low 4.6-10.8 [facility] ([place]) Comment on above: Performed By: #### A MED, TROPHS, BMP, ADIFF, GFR, MORPH, PBNP, MDW, CBC #### [place] [address] LABORATORYOrdered By: SYSTEM SYSTEM on 02-11-2024 Basophil, [...] ng/L Male: 0-76 ng/L Testing performed on FINXI using a homogeneous sandwich chemiluminescent immunoassay based on PiCloud technology. Urea nitrogen [Mass/Vol] 11 mg/dL Normal 7 - 18 mg/dL AO ADM SS Urea nitrogen/Creatinine [Mass ratio] 10 ratio Normal 7 - 27 ratio AO ADM SS WBC (Bld) [#/Vol] 3.3 103/mcL Low 4.6 - 10.8 10^3/mcL AO Workflow SS PBNPon 02-11-2024 Natriuretic peptide B (Bld) [Mass/Vol] 86 pg/mL Normal 0-125 [facility] ([place]) Comment on above: Result Comment: NT-p roBNP results of less than 300 pg/mL effectively rules out acute congestive heart failure with 99% negative predictive value. Performed By: #### A MED, ZAIRAS, BMP, ADIFF, GFR, HUY, TYLER, KAREN, CBC #### [address] [facility] High Sensitivity Troponin I 6 ng/L Normal 0-51 [facility] ([place]) Comment on above: Result Comment: High Sensitive Troponin I Reference Ranges: Female: 0-51 ng/L Male: 0-76 ng/L Testing performed on FINXI using a homogeneous sandwich chemiluminescent immunoassay based on PiCloud technology. Performed By: #### A MED, ZAIRAS, BMP, ADFRAN, GFR, HUY, TYLER, KAREN, CBC #### [address] [address] XR CHEST 1 VIEWon 02-11-2024 XR CHEST [...] 02/11/2024 7:17:20 AM Ordering Provider: NILTON Botello [facility] ([place]) [place] MAMMOGRAM SCREENING BILAT ERAL W/TOMOon 11-26-2023 MA MAMMOGRAM SCREENING BILATERAL W/AVINASH ORIGINAL FROM: [address] [address] PROCEDURE FOR: KARINA FERNANDO [address] [place] [id number] Home: PID#: [id number] Exam#: [id number] : 1950 Age: 72 TO: TU HECTOR DO [address] [facility] [address] [place], [place] [address] Fax: NO FAX EXAMINATION: SCREENING DIGITAL BILATERAL [...] Continued screening with annual mammograms is recommended. Tyrer Cuzick risk calculations, generated with the history provided, [...] addition to annual mammographic screening per the [employer]. BIRADS: MAMMOGRAM BI-RADS: 2: Benign finding RECALL: 1 year screening RECALL TYPE: mammo LETTER SENT: Normal BI-RADS 1 and 2 Interpreted by: Jaswinder Mei MD Preliminary Report By: Jaswinder Mei MD Electronically signed By Jaswinder Mei MD Dictated Date: 11/26/2023 10:58:30 AM Prelim Date: 11/26/2023 11:04:22 AM Sign Date: 11/26/2023 11:04:22 AM Ordering Provider: TU HECTOR Miner Assistant: ANNAMARIA MUSE RT(R)(M)(CT) letter sent: Normal BI-RADS 1 and 2 Mammogram BI-RADS: 2 Benign Normal [facility] ([place]) LABORATORYOrdered By: Leah Bunch on 09-29-2023 Albumin DL <= 20 mg/L (U) [Mass/Vol] 190 mcg/dL Invalid Interpretation Code AO ADM SS Albumin/Creatinine DL <= 20 mg/L (U) [Mass ratio] 6 mcg/mg Normal 0 - 30 mcg/mg AO ADM SS Creatinine (U) [Mass/Vol] 33.5 mg/dL Normal 28.0 - 117.0 mg/dL AO ADM SS MALBRon 09-29-2023 U Creatinine 33.5 mg/dL Normal 28.0-117.0 [facility] ([place]) Comment on above: Performed By: #### M ALBR #### [address] [address] U Microalb 190 mcg/dL Normal [facility] ([place]) Comment on above: Performed By: #### M ALBR #### [address] [address] U Ratio Alb/Cre 6 mcg/mg Normal 0-30 [facility] ([place]) Comment on above: Performed By: #### M ALBR #### [address] [address] MALBRon 03-10-2023 U Creatinine 58.1 mg/dL Normal 28.0-117.0 [facility] ([place]) Comment on above: Performed By: #### M ALBR #### [address] [address] U Microalb 389 mcg/dL Normal [facility] ([place] Comment on above: Performed By: #### M ALBR #### [address] [address] U Ratio Alb/Cre 7 mcg/mg Normal 0-30 [facility] ([place] Comment on above: Performed By: #### M ALBR #### [address] [address] LABORATORYOrdered By: Leah Bunch on 03-09-2023 Albumin [...] and Lateralon IMPRESSION: No acute radiographic abnormality. Platform Architect: PSCB Transcribe Date/Time: Jan 14 2021 10:21A Dictated by : JOSELYN VIDALES MD This examination was interpreted and the report reviewed and electronically signed by: JOSELYN VIDALES MD on Jan 14 2021 10:22AM [facility] DIVISION OF RADIOLOGY * [...] left rib fractures. DIVISION OF RADIOLOGY Provider, [facility] Lior Sanchez - 01/14/2021 * * *Final Report* * [...] fractures. IMPRESSION IMPRESSION: No acute radiographic abnormality. Platform Architect: AMISHA Transcribe Date/Time: Jan 14 2021 10:21A Dictated by : JOSELYN VIDALES MD This examination was interpreted and the report reviewed and electronically signed by: JOSELYN VIDALES MD on Jan 14 2021 10:22AM [facility] Radiology Study observation (narrative) [facility] XR Chest PA and LateralOrder ed By: [facility] Provider on 01-14-2021 [facility] XR Chest PA and Lateralon IMPRESSION: 1. No radiographic evidence of acute cardiopulmonary process. 2. Moderately large hiatal hernia. Platform Architect: [email or web address] Transcribe Date/Time: Dec 17 2020 2:23P Dictated by : LALI JAIN MD This examination was interpreted and the report reviewed and electronically signed by: LALI JAIN MD on Dec 17 2020 2:24PM [facility] DIVISION OF RADIOLOGY * [...] rib fracture deformities. DIVISION OF RADIOLOGY Provider, Anoop Sanchez - 12/17/2020 * * *Final Report* * [...] cardiopulmonary process. 2. Moderately large hiatal hernia. Platform Architect: PSCB Transcribe Date/Time: Dec 17 2020 2:23P Dictated by : LALI JAIN MD This examination was interpreted and the report reviewed and electronically signed by: LALI JAIN MD on Dec 17 2020 2:24PM EST [facility] Radiology Study observation (narrative) [facility] XR Chest PA and LateralOrder ed By: [facility] Provider on 12-17-2020 [facility] Vital Signs Date Time Vital Sign Value Performing Clinician Facility 03-06-2025 11:16-0400 Body height 160.[address] Tu Hector DO Work Phone: [facility] 03-06-2025 11:16-0400 Body mass index (BMI) [Ratio] 26 kg/m2 Dr. Tu Hector DO Work Phone: [facility] 03-06-2025 11:16-0400 Body temperature 96.9 [degF] Dr. Tu Hector DO Work Phone: [facility] 03-06-2025 11:16-0400 Body weight 66.[address] Tu Hector DO Work Phone: [facility] 03-06-2025 11:16-0400 Diastolic blood pressure 74 mm[Hg] Dr. Tu Hector DO Work Phone: [facility] 03-06-2025 11:16-0400 Heart rate 111 /min Dr. Tu Hector DO Work Phone: [facility] 03-06-2025 11:16-0400 Respiratory rate 18 /min Dr. Tu Hector DO Work Phone: [facility] 03-06-2025 11:16-0400 SaO2% (BldA) [Mass fraction] 93 % Dr. Tu Hector DO Work Phone: [facility] 03-06-2025 11:16-0400 Systolic blood pressure 103 mm[Hg] Dr. Tu Hector DO Work Phone: [facility] 02-20-2025 11:46-0400 Body temperature 96.6 [degF] Dr. Tu Hector DO Work Phone: [facility] 02-20-2025 11:46-0400 Diastolic blood pressure 75 mm[Hg] Dr. Tu Hector DO Work Phone: [facility] 02-20-2025 11:46-0400 Heart rate 105 /min Dr. Tu Hector DO Work Phone: [facility] 02-20-2025 11:46-0400 Respiratory rate 16 /min Dr. Tu Hector DO Work Phone: [facility] 02-20-2025 11:46-0400 SaO2% (BldA) [Mass fraction] 99 % Dr. Tu Hector DO Work Phone: [facility] 02-20-2025 11:46-0400 Systolic blood pressure 111 mm[Hg] Dr. Tu Hector DO Work Phone: [facility] 02-20-2025 08:36-0400 Body height 160.[address] Tu Hector DO Work Phone: [facility] 02-20-2025 08:36-0400 Body mass index (BMI) [Ratio] 26.1 kg/m2 Dr. Tu Hector DO Work Phone: [facility] 02-20-2025 08:36-0400 Body temperature 98.4 [degF] Dr. Tu Hector DO Work Phone: [facility] 02-20-2025 08:36-0400 Body weight 66.[address] Tu Hector DO Work Phone: [facility] 02-20-2025 08:36-0400 Diastolic blood pressure 80 mm[Hg] Dr. Tu Hector DO Work Phone: [facility] 02-20-2025 08:36-0400 Heart rate 103 /min Dr. Tu Hector DO Work Phone: [facility] 02-20-2025 08:36-0400 Respiratory rate 18 /min Dr. Tu Hector DO Work Phone: [facility] 02-20-2025 08:36-0400 SaO2% (BldA) [Mass fraction] 99 % Dr. Tu Hector DO Work Phone: [facility] 02-20-2025 08:36-0400 Systolic blood pressure 118 mm[Hg] Dr. Tu Hector DO Work Phone: [facility] 02-14-2025 14:14-0400 Body temperature 97.9 [degF] Dr. Tu Hector DO Work Phone: [facility] 02-14-2025 14:14-0400 Diastolic blood pressure 79 mm[Hg] Dr. Tu Hector DO Work Phone: [facility] 02-14-2025 14:14-0400 Heart rate 96 /min Dr. Tu Hector DO Work Phone: [facility] 02-14-2025 14:14-0400 Respiratory rate 18 /min Dr. Tu Hector DO Work Phone: [facility] 02-14-2025 14:14-0400 SaO2% (BldA) [Mass fraction] 98 % Dr. Tu Hector DO Work Phone: [facility] 02-14-2025 14:14-0400 Systolic blood pressure 146 mm[Hg] Dr. Tu Hector DO Work Phone: [facility] 02-13-2025 09:00-0400 Inhaled oxygen flow rate 3 L/min Dr. Tu Hector DO Work Phone: [facility] 02-12-2025 13:28-0400 Body height 160.[address] Tu Hector DO Work Phone: [facility] 02-12-2025 13:28-0400 Body weight 63.[address] Tu Hector DO Work Phone: [facility] 02-11-2025 18:29-0400 Body temperature 97.8 [degF] Dr. Tu Hector DO Work Phone: [facility] 02-11-2025 18:29-0400 Diastolic blood pressure 83 mm[Hg] Dr. Tu Hector DO Work Phone: [facility] 02-11-2025 18:29-0400 Heart rate 117 /min Dr. Tu Hector DO Work Phone: [facility] 02-11-2025 18:29-0400 Respiratory rate 17 /min Dr. Tu Hector DO Work Phone: [facility] 02-11-2025 18:29-0400 SaO2% (BldA) [Mass fraction] 97 % Dr. Tu Hector DO Work Phone: [facility] 02-11-2025 18:29-0400 Systolic blood pressure 121 mm[Hg] Dr. Tu Hector DO Work Phone: [facility] 02-11-2025 17:00-0400 Inhaled oxygen flow rate 3 L/min Dr. Tu Hector DO Work Phone: [facility] 02-11-2025 14:51-0400 Body mass index (BMI) [Ratio] 24.9 kg/m2 Dr. Tu Hector DO Work Phone: [facility] 02-11-2025 14:51-0400 Body weight 63.[address] Tu Hector DO Work Phone: [facility] 02-11-2025 14:48-0400 Body height 160.[address] Tu Hector DO Work Phone: [facility] 01-28-2025 22:17-0400 Body temperature 98.1 [degF] Dr. Tu Hector DO Work Phone: [facility] 01-28-2025 22:17-0400 Diastolic blood pressure 75 mm[Hg] Dr. Tu Hector DO Work Phone: [facility] 01-28-2025 22:17-0400 Heart rate 97 /min Dr. Tu Hector DO Work Phone: [facility] 01-28-2025 22:17-0400 Respiratory rate 16 /min Dr. Tu Hector DO Work Phone: [facility] 01-28-2025 22:17-0400 SaO2% (BldA) [Mass fraction] 98 % Dr. Tu Hector DO Work Phone: [facility] 01-28-2025 22:17-0400 Systolic blood pressure 120 mm[Hg] Dr. Tu Hector DO Work Phone: [facility] 01-28-2025 19:00-0400 Inhaled oxygen flow rate 3 L/min Dr. Tu Hector DO Work Phone: [facility] 01-28-2025 17:49-0400 Body mass index (BMI) [Ratio] 27.6 kg/m2 Dr. Tu Hector DO Work Phone: [facility] 01-28-2025 17:49-0400 Body weight 70.[address] Tu Hector DO Work Phone: [facility] 01-28-2025 17:44-0400 Body height 160.[address] Tu Hector DO Work Phone: [facility] 01-23-2025 13:07-0400 Body temperature 96.8 [degF] Dr. Tu Hector DO Work Phone: [facility] 01-23-2025 13:07-0400 Diastolic blood pressure 75 mm[Hg] Dr. Tu Hector DO Work Phone: [facility] 01-23-2025 13:07-0400 Heart rate 81 /min Dr. Tu Hector DO Work Phone: [facility] 01-23-2025 13:07-0400 Respiratory rate 16 /min Dr. Tu Hector DO Work Phone: [facility] 01-23-2025 13:07-0400 SaO2% (BldA) [Mass fraction] 100 % Dr. Tu Hector DO Work Phone: [facility] 01-23-2025 13:07-0400 Systolic blood pressure 118 mm[Hg] Dr. Tu Hector DO Work Phone: [facility] 01-23-2025 10:05-0400 Body height 160.[address] Tu Hector DO Work Phone: [facility] 01-23-2025 10:05-0400 Body mass index (BMI) [Ratio] 27.8 kg/m2 Dr. Tu Hector DO Work Phone: [facility] 01-23-2025 10:05-0400 Body temperature 97.1 [degF] Dr. Tu Hector DO Work Phone: [facility] 01-23-2025 10:05-0400 Body weight 71.[address] Tu Hector DO Work Phone: [facility] 01-23-2025 10:05-0400 Diastolic blood pressure 73 mm[Hg] Dr. Tu Hector DO Work Phone: [facility] 01-23-2025 10:05-0400 Heart rate 91 /min Dr. Tu Hector DO Work Phone: [facility] 01-23-2025 10:05-0400 Respiratory rate 15 /min Dr. Tu Hector DO Work Phone: [facility] 01-23-2025 10:05-0400 SaO2% (BldA) [Mass fraction] 93 % Dr. Tu Hector DO Work Phone: [facility] 01-23-2025 10:05-0400 Systolic blood pressure 114 mm[Hg] Dr. Tu Hector DO Work Phone: [facility] 01-04-2025 14:42-0400 Body temperature 96.7 [degF] Dr. Tu Hector DO Work Phone: [facility] 01-04-2025 14:42-0400 Diastolic blood pressure 71 mm[Hg] Dr. Tu Hector DO Work Phone: [facility] 01-04-2025 14:42-0400 Heart rate 94 /min Dr. Tu Hector DO Work Phone: [facility] 01-04-2025 14:42-0400 Respiratory rate 16 /min Dr. Tu Hector DO Work Phone: [facility] 01-04-2025 14:42-0400 Systolic blood pressure 119 mm[Hg] Dr. Tu Hector DO Work Phone: [facility] 01-04-2025 13:01-0400 Inhaled oxygen flow rate 3 L/min Dr. Tu Hector DO Work Phone: [facility] 01-04-2025 13:01-0400 SaO2% (BldA) [Mass fraction] 99 % Dr. Tu Hector DO Work Phone: [facility] 01-02-2025 09:55-0400 Body height 160.[address] Tu Hector DO Work Phone: [facility] 01-02-2025 09:55-0400 Body mass index (BMI) [Ratio] 27.4 kg/m2 Dr. Tu Hector DO Work Phone: [facility] 01-02-2025 09:55-0400 Body temperature 97.6 [degF] Dr. Tu Hector DO Work Phone: [facility] 01-02-2025 09:55-0400 Body weight 70.[address] Tu Hector DO Work Phone: [facility] 01-02-2025 09:55-0400 Diastolic blood pressure 77 mm[Hg] Dr. Tu Hector DO Work Phone: [facility] 01-02-2025 09:55-0400 Heart rate 102 /min Dr. Tu Hector DO Work Phone: [facility] 01-02-2025 09:55-0400 Inhaled oxygen flow rate 3 L/min Dr. Tu Hector DO Work Phone: [facility] 01-02-2025 09:55-0400 Respiratory rate 14 /min Dr. Tu Hector DO Work Phone: [facility] 01-02-2025 09:55-0400 SaO2% (BldA) [Mass fraction] 92 % Dr. Tu Hector DO Work Phone: [facility] 01-02-2025 09:55-0400 Systolic blood pressure 114 mm[Hg] Dr. Tu Hector DO Work Phone: [facility] 12-14-2024 15:04-0400 Body temperature 97.1 [degF] Dr. Tu Hector DO Work Phone: [facility] 12-14-2024 15:04-0400 Diastolic blood pressure 79 mm[Hg] Dr. Tu Hector DO Work Phone: [facility] 12-14-2024 15:04-0400 Heart rate 82 /min Dr. Tu Hector DO Work Phone: [facility] 12-14-2024 15:04-0400 Respiratory rate 16 /min Dr. Tu Hector DO Work Phone: [facility] 12-14-2024 15:04-0400 SaO2% (BldA) [Mass fraction] 100 % Dr. Tu Hector DO Work Phone: [facility] 12-14-2024 15:04-0400 Systolic blood pressure 121 mm[Hg] Dr. Tu Hector DO Work Phone: [facility] 12-14-2024 13:06-0400 Inhaled oxygen flow rate 3 L/min Dr. Tu Hector DO Work Phone: [facility] 12-12-2024 09:06-0400 Body height 160.[address] Tu Hector DO Work Phone: [facility] 12-12-2024 09:06-0400 Body mass index (BMI) [Ratio] 27.8 kg/m2 Dr. Tu Hcetor DO Work Phone: [facility] 12-12-2024 09:06-0400 Body temperature 97.9 [degF] Dr. Tu Hector DO Work Phone: [facility] 12-12-2024 09:06-0400 Body weight 71.[address] Tu Hector DO Work Phone: [facility] 12-12-2024 09:06-0400 Diastolic blood pressure 70 mm[Hg] Dr. Tu Hector DO Work Phone: [facility] 12-12-2024 09:06-0400 Heart rate 82 /min Dr. Tu Hector DO Work Phone: [facility] 12-12-2024 09:06-0400 Inhaled oxygen flow rate 3 L/min Dr. Tu Hector DO Work Phone: [facility] 12-12-2024 09:06-0400 Respiratory rate 15 /min Dr. Tu Hector DO Work Phone: [facility] 12-12-2024 09:06-0400 SaO2% (BldA) [Mass fraction] 94 % Dr. Tu Hector DO Work Phone: [facility] 12-12-2024 09:06-0400 Systolic blood pressure 122 mm[Hg] Dr. Tu Hector DO Work Phone: [facility] 11-24-2024 16:15-0400 Diastolic Blood Pressure Non-Invasive 68 mm[Hg] ENID FORMAN MD [facility] 11-24-2024 16:15-0400 Heart rate 86 /min ENID FORMAN MD [facility] 11-24-2024 16:15-0400 Reason For Taking VItal Signs ENID FORMAN MD [facility] 11-24-2024 16:15-0400 Respiratory rate 20 /min ENID FORMAN MD [facility] 11-24-2024 16:15-0400 Systolic Blood Pressure Non-Invasive 168 mm[Hg] ENID FORMAN MD [facility] 11-24-2024 13:54-0400 Body temperature 98.42 [degF] ENID FORMAN MD [address]09-2025 13:54-0400 Body weight 73.4 kg ENID FORMAN MD [facility] 11-24-2024 13:54-0400 Diastolic Blood Pressure Non-Invasive 62 mm[Hg] ENID FORMAN MD [facility] 11-24-2024 13:54-0400 Heart rate 89 /min ENID FORMAN MD [facility] 11-24-2024 13:54-0400 Respiratory rate 20 /min ENID FORMAN MD [facility] 11-24-2024 13:54-0400 Systolic Blood Pressure Non-Invasive 174 mm[Hg] ENID FORMAN MD [facility] 11-22-2024 13:03-0400 Body temperature 96.6 [degF] Dr. Tu Hector DO Work Phone: [facility] 11-22-2024 13:03-0400 Diastolic blood pressure 54 mm[Hg] Dr. Tu Hector DO Work Phone: [facility] 11-22-2024 13:03-0400 Heart rate 69 /min Dr. Tu Hector DO Work Phone: [facility] 11-22-2024 13:03-0400 Inhaled oxygen flow rate 3 L/min Dr. Tu Hector DO Work Phone: [facility] 11-22-2024 13:03-0400 Respiratory rate 16 /min Dr. Tu Hector DO Work Phone: [facility] 11-22-2024 13:03-0400 SaO2% (BldA) [Mass fraction] 96 % Dr. Tu Hector DO Work Phone: [facility] 11-22-2024 13:03-0400 Systolic blood pressure 110 mm[Hg] Dr. Tu Hector DO Work Phone: [facility] 11-21-2024 08:46-0400 Body mass index (BMI) [Ratio] 28.3 kg/m2 Dr. Tu Hector DO Work Phone: [facility] 11-21-2024 08:46-0400 Body temperature 97.9 [degF] Dr. Tu Hector DO Work Phone: [facility] 11-21-2024 08:46-0400 Body weight 72.[address] Tu Hector DO Work Phone: [facility] 11-21-2024 08:46-0400 Diastolic blood pressure 75 mm[Hg] Dr. Tu Hector DO Work Phone: [facility] 11-21-2024 08:46-0400 Heart rate 78 /min Dr. Tu Hector DO Work Phone: [facility] 11-21-2024 08:46-0400 Inhaled oxygen flow rate 3 L/min Dr. Tu Hector DO Work Phone: [facility] 11-21-2024 08:46-0400 Respiratory rate 14 /min Dr. Tu Hector DO Work Phone: [facility] 11-21-2024 08:46-0400 SaO2% (BldA) [Mass fraction] 91 % Dr. Tu Hector DO Work Phone: [facility] 11-21-2024 08:46-0400 Systolic blood pressure 118 mm[Hg] Dr. Tu Hector DO Work Phone: [facility] 11-17-2024 11:30-0400 Body mass index (BMI) [Ratio] 27.6 kg/m2 Dr. Tu Hector DO Work Phone: [facility] 11-17-2024 11:30-0400 Body weight 70.[address] Tu Hector DO Work Phone: [facility] 11-17-2024 11:30-0400 Diastolic blood pressure 63 mm[Hg] Dr. Tu Hector DO Work Phone: [facility] 11-17-2024 11:30-0400 Heart rate 82 /min Dr. Tu Hector DO Work Phone: [facility] 11-17-2024 11:30-0400 Inhaled oxygen flow rate 3 L/min Dr. Tu Hector DO Work Phone: [facility] 11-17-2024 11:30-0400 Respiratory rate 18 /min Dr. Tu Hector DO Work Phone: [facility] 11-17-2024 11:30-0400 SaO2% (BldA) [Mass fraction] 91 % Dr. Tu Hector DO Work Phone: [facility] 11-17-2024 11:30-0400 Systolic blood pressure 99 mm[Hg] Dr. Tu Hector DO Work Phone: [facility] 11-16-2024 14:40-0400 Body temperature 97.1 [degF] Dr. Tu Hector DO Work Phone: [facility] 11-16-2024 14:40-0400 Diastolic blood pressure 72 mm[Hg] Dr. Tu Hector DO Work Phone: [facility] 11-16-2024 14:40-0400 Heart rate 84 /min Dr. Tu Hector DO Work Phone: [facility] 11-16-2024 14:40-0400 Respiratory rate 16 /min Dr. Tu Hector DO Work Phone: [facility] 11-16-2024 14:40-0400 SaO2% (BldA) [Mass fraction] 96 % Dr. Tu Hector DO Work Phone: [facility] 11-16-2024 14:40-0400 Systolic blood pressure 100 mm[Hg] Dr. Tu Hector DO Work Phone: [facility] 11-16-2024 14:35-0400 Inhaled oxygen flow rate 3 L/min Dr. Tu Hector DO Work Phone: [facility] 11-16-2024 12:05-0400 Body mass index (BMI) [Ratio] 27.7 kg/m2 Dr. Tu Hector DO Work Phone: [facility] 11-16-2024 12:05-0400 Body weight [address] Tu Hector DO Work Phone: [facility] 11-09-2024 09:09-0400 Body mass index (BMI) [Ratio] 28.3 kg/m2 Dr. Tu Hector DO Work Phone: [facility] 11-09-2024 09:09-0400 Body temperature 98.1 [degF] Dr. Tu Hector DO Work Phone: [facility] 11-09-2024 09:09-0400 Body weight 72.[address] Tu Hector DO Work Phone: [facility] 11-09-2024 09:09-0400 Diastolic blood pressure 74 mm[Hg] Dr. Tu Hector DO Work Phone: [facility] 11-09-2024 09:09-0400 Heart rate 81 /min Dr. Tu Hector DO Work Phone: [facility] 11-09-2024 09:09-0400 Respiratory rate 18 /min Dr. Tu Hector DO Work Phone: [facility] 11-09-2024 09:09-0400 SaO2% (BldA) [Mass fraction] 97 % Dr. Tu Hector DO Work Phone: [facility] 11-09-2024 09:09-0400 Systolic blood pressure 116 mm[Hg] Dr. Tu Hector DO Work Phone: [facility] 11-02-2024 09:51-0400 Body mass index (BMI) [Ratio] 30.5 kg/m2 Dr. Tu Hector DO Work Phone: [facility] 10-31-2024 08:18-0400 Body mass index (BMI) [Ratio] 29.4 kg/m2 Dr. Tu Hector DO Work Phone: [facility] 10-31-2024 08:18-0400 Body temperature 98.3 [degF] Dr. Tu Hector DO Work Phone: [facility] 10-31-2024 08:18-0400 Body weight 75.[address] Tu Hector DO Work Phone: [facility] 10-31-2024 08:18-0400 Diastolic blood pressure 81 mm[Hg] Dr. Tu Hector DO Work Phone: [facility] 10-31-2024 08:18-0400 Heart rate 96 /min Dr. Tu Hector DO Work Phone: [facility] 10-31-2024 08:18-0400 Respiratory rate 16 /min Dr. Tu Hector DO Work Phone: [facility] 10-31-2024 08:18-0400 SaO2% (BldA) [Mass fraction] 98 % Dr. Tu Hector DO Work Phone: [facility] 10-31-2024 08:18-0400 Systolic blood pressure 125 mm[Hg] Dr. Tu Hector DO Work Phone: [facility] 10-27-2024 12:45-0400 Body mass index (BMI) [Ratio] 18.9 kg/m2 Dr. Tu Hector DO Work Phone: [facility] 10-27-2024 12:45-0400 Body temperature 97.6 [degF] Dr. Tu Hector DO Work Phone: [facility] 10-27-2024 12:45-0400 Body weight 48.[address] Tu Hector DO Work Phone: [facility] 10-27-2024 12:45-0400 Diastolic blood pressure 70 mm[Hg] Dr. Tu Hector DO Work Phone: [facility] 10-27-2024 12:45-0400 Heart rate 100 /min Dr. Tu Hector DO Work Phone: [facility] 10-27-2024 12:45-0400 Inhaled oxygen flow rate 2.5 L/min Dr. Tu Hector DO Work Phone: [facility] 10-27-2024 12:45-0400 Respiratory rate 18 /min Dr. Tu Hector DO Work Phone: [facility] 10-27-2024 12:45-0400 SaO2% (BldA) [Mass fraction] 96 % Dr. Tu Hector DO Work Phone: [facility] 10-27-2024 12:45-0400 Systolic blood pressure 107 mm[Hg] Dr. Tu Hector DO Work Phone: [facility] 10-26-2024 16:17-0400 Body mass index (BMI) [Ratio] 29.8 kg/m2 Dr. Tu Hector DO Work Phone: [facility] 10-26-2024 16:17-0400 Body temperature 98.5 [degF] Dr. Tu Hector DO Work Phone: [facility] 10-26-2024 16:17-0400 Body weight 76.[address] Tu Hector DO Work Phone: [facility] 10-26-2024 16:17-0400 Diastolic blood pressure 76 mm[Hg] Dr. Tu Hector DO Work Phone: [facility] 10-26-2024 16:17-0400 Heart rate 115 /min Dr. Tu Hector DO Work Phone: [facility] 10-26-2024 16:17-0400 Respiratory rate 18 /min Dr. Tu Hector DO Work Phone: [facility] 10-26-2024 16:17-0400 SaO2% (BldA) [Mass fraction] 98 % Dr. Tu Hector DO Work Phone: [facility] 10-26-2024 16:17-0400 Systolic blood pressure 116 mm[Hg] Dr. Tu Hector DO Work Phone: [facility] 10-26-2024 10:37-0400 Body height 160 cm Joselyn Tucker MD Work Phone: [facility] 10-26-2024 10:37-0400 Body mass index (BMI) [Ratio] 29.58 kg/m2 Joselyn Tucker MD Work Phone: [facility] 10-26-2024 10:37-0400 Body weight 75.75 kg Joselyn Tucker MD Work Phone: [facility] 10-26-2024 10:37-0400 Diastolic blood pressure 80 mm[Hg] Joselyn Tucker MD Work Phone: [facility] 10-26-2024 10:37-0400 Heart rate 98 /min Joselyn Tucker MD Work Phone: [facility] 10-26-2024 10:37-0400 Systolic blood pressure 120 mm[Hg] Joselyn Tucker MD Work Phone: [facility] 10-25-2024 15:11-0400 Body mass index (BMI) [Ratio] 29.7 kg/m2 Dr. Tu Hector DO Work Phone: [facility] 10-25-2024 15:11-0400 Body temperature 98.5 [degF] Dr. Tu Hector DO Work Phone: [facility] 10-25-2024 15:11-0400 Body weight [address] Tu Hector DO Work Phone: [facility] 10-25-2024 15:11-0400 Diastolic blood pressure 74 mm[Hg] Dr. Tu Hector DO Work Phone: [facility] 10-25-2024 15:11-0400 Heart rate 89 /min Dr. Tu Hector DO Work Phone: [facility] 10-25-2024 15:11-0400 Inhaled oxygen flow rate 2.5 L/min Dr. Tu Hector DO Work Phone: [facility] 10-25-2024 15:11-0400 Respiratory rate 18 /min Dr. Tu Hector DO Work Phone: [facility] 10-25-2024 15:11-0400 SaO2% (BldA) [Mass fraction] 97 % Dr. Tu Hector DO Work Phone: [facility] 10-25-2024 15:11-0400 Systolic blood pressure 114 mm[Hg] Dr. Tu Hector DO Work Phone: [facility] 10-21-2024 16:39-0400 Body temperature 97.9 [degF] Dr. Tu Hector DO Work Phone: [facility] 10-21-2024 16:39-0400 Diastolic blood pressure 74 mm[Hg] Dr. Tu Hector DO Work Phone: [facility] 10-21-2024 16:39-0400 Heart rate 80 /min Dr. Tu Hector DO Work Phone: [facility] 10-21-2024 16:39-0400 Respiratory rate 16 /min Dr. Tu Hector DO Work Phone: [facility] 10-21-2024 16:39-0400 SaO2% (BldA) [Mass fraction] 98 % Dr. Tu Hector DO Work Phone: [facility] 10-21-2024 16:39-0400 Systolic blood pressure 111 mm[Hg] Dr. Tu Hector DO Work Phone: [facility] 10-21-2024 15:43-0400 Inhaled oxygen flow rate 2 L/min Dr. Tu Hector DO Work Phone: [facility] 10-21-2024 15:05-0400 Body height 160.[address] Tu Hector DO Work Phone: [facility] 10-21-2024 15:05-0400 Body mass index (BMI) [Ratio] 29.2 kg/m2 Dr. Tu Hector DO Work Phone: [facility] 10-21-2024 15:05-0400 Body weight 74.[address] Tu Hector DO Work Phone: [facility] 10-17-2024 11:07-0400 Body height 160 cm Yaritza MillerPrimo DO Work Phone: [facility] 10-17-2024 11:07-0400 Body mass index (BMI) [Ratio] 29.23 kg/m2 Yaritzajenna Monk-Primo DO Work Phone: [facility] 10-17-2024 11:07-0400 Body temperature 97.5 [degF] Yaritza Dayna-Primo DO Work Phone: [facility] 10-17-2024 11:07-0400 Body weight 74.84 kg Yaritza Dayna-Primo DO Work Phone: [facility] 10-17-2024 11:07-0400 Diastolic blood pressure 64 mm[Hg] Yaritza Dayna-Primo DO Work Phone: [facility] 10-17-2024 11:07-0400 Heart rate 81 /min Yaritza Dayna-Primo DO Work Phone: [facility] 10-17-2024 11:07-0400 Respiratory rate 18 /min Yaritza Dayna-Primo DO Work Phone: [facility] 10-17-2024 11:07-0400 SaO2% (BldA) [Mass fraction] 94 % Yaritza Johnson DO Work Phone: [facility] Comment on above: RA 10-17-2024 11:07-0400 Systolic blood pressure 122 mm[Hg] Yaritza Johnson DO Work Phone: [facility] 10-09-2024 16:30-0400 Diastolic blood pressure 72 mm[Hg] Daija Mejia MD Work Phone: [facility] 10-09-2024 16:30-0400 Heart rate 90 /min Daija Mejia MD Work Phone: [facility] 10-09-2024 16:30-0400 Respiratory rate 22 /min Daija Mejia MD Work Phone: [facility] 10-09-2024 16:30-0400 SaO2% (BldA) [Mass fraction] 92 % Daija Mejia MD Work Phone: [facility] 10-09-2024 16:30-0400 Systolic blood pressure 112 mm[Hg] Daija Mejia MD Work Phone: [facility] 10-09-2024 15:45-0400 Body temperature 97.59 [degF] Daija Mejia MD Work Phone: [facility] 10-09-2024 13:08-0400 Body height 160 cm Daija Mejia MD Work Phone: [facility] 10-09-2024 13:08-0400 Body mass index (BMI) [Ratio] 28.87 kg/m2 Daija Mejia MD Work Phone: [facility] 10-09-2024 13:08-0400 Body weight 73.94 kg Daija Mejia MD Work Phone: [facility] 10-06-2024 13:06-0400 Body temperature 98.8 [degF] Guanakito Moya MD Work Phone: [facility] 10-06-2024 13:06-0400 Diastolic blood pressure 75 mm[Hg] Guanakito Moya MD Work Phone: [facility] 10-06-2024 13:06-0400 Heart rate 122 /min Guanakito Moya MD Work Phone: [facility] 10-06-2024 13:06-0400 Respiratory rate 18 /min Guanakito Moya MD Work Phone: [facility] 10-06-2024 13:06-0400 SaO2% (BldA) [Mass fraction] 93 % Guanakito Moya MD Work Phone: [facility] 10-06-2024 13:06-0400 Systolic blood pressure 110 mm[Hg] Guanakito Moya MD Work Phone: [facility] 10-05-2024 20:12-0400 Body mass index (BMI) [Ratio] 27.44 kg/m2 Guanakito Moya MD Work Phone: [facility] 10-05-2024 20:12-0400 Body weight 70.26 kg Guanakito Moya MD Work Phone: [facility] 10-05-2024 18:22-0400 Body temperature 98.2 [degF] Dr. Tu Hector DO Work Phone: [facility] 10-05-2024 18:22-0400 Diastolic blood pressure 82 mm[Hg] Dr. Tu Hector DO Work Phone: [facility] 10-05-2024 18:22-0400 Heart rate 99 /min Dr. Tu Hector DO Work Phone: [facility] 10-05-2024 18:22-0400 Respiratory rate 20 /min Dr. Tu Hector DO Work Phone: [facility] 10-05-2024 18:22-0400 SaO2% (BldA) [Mass fraction] 93 % Dr. Tu Hector DO Work Phone: [facility] 10-05-2024 18:22-0400 Systolic blood pressure 116 mm[Hg] Dr. Tu Hector DO Work Phone: [facility] 10-05-2024 13:52-0400 Body height 160.[address] Tu Hector DO Work Phone: [facility] 10-05-2024 13:52-0400 Body mass index (BMI) [Ratio] 28.8 kg/m2 Dr. Tu Hector DO Work Phone: [facility] 10-05-2024 13:52-0400 Body weight 73.[address] Tu Hector DO Work Phone: [facility] 10-03-2024 13:56-0400 Body height 160 cm Wiflrido Simsbeliaehsano DO Work Phone: [facility] 10-03-2024 13:56-0400 Body mass index (BMI) [Ratio] 28.87 kg/m2 Wilfrido Bhaktaungo DO Work Phone: [facility] 10-03-2024 13:56-0400 Body weight 73.94 kg Wilfrido Ramirezo DO Work Phone: [facility] 10-03-2024 13:56-0400 Diastolic blood pressure 62 mm[Hg] Wilfrido Hitrbeliaungo DO Work Phone: [facility] 10-03-2024 13:56-0400 Heart rate 76 /min Wilfrido Bhaktaungo DO Work Phone: [facility] 10-03-2024 13:56-0400 Systolic blood pressure 108 mm[Hg] Wilfrido Hitrbeliaungo DO Work Phone: [facility] 10-03-2024 12:13-0400 Body height 160 cm Yaritza Monk-Primo DO Work Phone: [facility] 10-03-2024 12:13-0400 Body mass index (BMI) [Ratio] 28.87 kg/m2 Yaritza Monk-Primo DO Work Phone: [facility] 10-03-2024 12:13-0400 Body weight 73.94 kg Yaritza Durantodgrass DO Work Phone: [facility] 10-03-2024 12:13-0400 Diastolic blood pressure 86 mm[Hg] Yaritza Monk-Primo DO Work Phone: [facility] 10-03-2024 12:13-0400 Heart rate 98 /min Yaritza Durantodgrass DO Work Phone: [facility] 10-03-2024 12:13-0400 Respiratory rate 18 /min Yaritza Durantodgrass DO Work Phone: [facility] 10-03-2024 12:13-0400 SaO2% (BldA) [Mass fraction] 93 % Yaritza Durantodgrass DO Work Phone: [facility] Comment on above: 10-03-2024 12:13-0400 Systolic blood pressure 127 mm[Hg] Yaritza Durantodgrass DO Work Phone: [facility] 10-03-2024 11:10-0400 Diastolic blood pressure 89 mm[Hg] Lizandro Fortune MD Work Phone: [facility] 10-03-2024 11:10-0400 Systolic blood pressure 141 mm[Hg] Lizandro Fortune MD Work Phone: [facility] 10-03-2024 11:07-0400 Body mass index (BMI) [Ratio] 28.87 kg/m2 Lizandro Fortune MD Work Phone: [facility] 10-03-2024 11:07-0400 Body weight 73.94 kg Lizandro Fortune MD Work Phone: [facility] 10-03-2024 11:07-0400 Heart rate 95 /min Lizandro Fortune MD Work Phone: [facility] 09-28-2024 10:00-0400 Heart rate 121 /min Dr. Tu Hector DO Work Phone: [facility] 09-28-2024 10:00-0400 SaO2% (BldA) [Mass fraction] 90 % Dr. Tu Hector DO Work Phone: [facility] 09-28-2024 09:50-0400 Body temperature 97.4 [degF] Dr. Tu Hector DO Work Phone: [facility] 09-28-2024 09:50-0400 Body weight 74.[address] Tu Hector DO Work Phone: [facility] 09-28-2024 09:50-0400 Diastolic blood pressure 84 mm[Hg] Dr. Tu Hector DO Work Phone: [facility] 09-28-2024 09:50-0400 Respiratory rate 20 /min Dr. Tu Hector DO Work Phone: [facility] 09-28-2024 09:50-0400 Systolic blood pressure 144 mm[Hg] Dr. Tu Hector DO Work Phone: [facility] 09-22-2024 08:07-0500 Body mass index (BMI) [Ratio] 28.8 kg/m2 Dr. Tu Hector DO Work Phone: [facility] 09-22-2024 08:07-0500 Body temperature 97.4 [degF] Dr. Tu Hector DO Work Phone: [facility] 09-22-2024 08:07-0500 Body weight 73.[address] Tu Hector DO Work Phone: [facility] 09-22-2024 08:07-0500 Diastolic blood pressure 72 mm[Hg] Dr. Tu Hector DO Work Phone: [facility] 09-22-2024 08:07-0500 Heart rate 100 /min Dr. Tu Hector DO Work Phone: [facility] 09-22-2024 08:07-0500 Respiratory rate 20 /min Dr. Tu Hector DO Work Phone: [facility] 09-22-2024 08:07-0500 SaO2% (BldA) [Mass fraction] 94 % Dr. Tu eHctor DO Work Phone: [facility] 09-22-2024 08:07-0500 Systolic blood pressure 106 mm[Hg] Dr. Tu Hector DO Work Phone: [facility] 09-18-2024 13:18-0500 Body height 160.[address] Tu Hector DO Work Phone: [facility] 09-18-2024 13:18-0500 Body mass index (BMI) [Ratio] 29.8 kg/m2 Dr. Tu Hector DO Work Phone: [facility] 09-18-2024 13:18-0500 Body temperature 98.2 [degF] Dr. Tu Hector DO Work Phone: [facility] 09-18-2024 13:18-0500 Body weight 76.[address] Tu Hector DO Work Phone: [facility] 09-18-2024 13:18-0500 Diastolic blood pressure 85 mm[Hg] Dr. uT Hector DO Work Phone: [facility] 09-18-2024 13:18-0500 Heart rate 86 /min Dr. Tu Hector DO Work Phone: [facility] 09-18-2024 13:18-0500 Respiratory rate 16 /min Dr. Tu Hector DO Work Phone: [facility] 09-18-2024 13:18-0500 SaO2% (BldA) [Mass fraction] 94 % Dr. Tu Hector DO Work Phone: [facility] 09-18-2024 13:18-0500 Systolic blood pressure 130 mm[Hg] Dr. Tu Hector DO Work Phone: [facility] 09-14-2024 00:30-0500 Body temperature 98.3 [degF] Dr. Tu Hector DO Work Phone: [facility] 09-14-2024 00:30-0500 Diastolic blood pressure 87 mm[Hg] Dr. Tu Hector DO Work Phone: [facility] 09-14-2024 00:30-0500 Heart rate 87 /min Dr. Tu Hector DO Work Phone: [facility] 09-14-2024 00:30-0500 Respiratory rate 19 /min Dr. Tu Hector DO Work Phone: [facility] 09-14-2024 00:30-0500 SaO2% (BldA) [Mass fraction] 92 % Dr. Tu Hector DO Work Phone: [facility] 09-14-2024 00:30-0500 Systolic blood pressure 137 mm[Hg] Dr. Tu Hector DO Work Phone: [facility] 09-13-2024 18:52-0500 Body mass index (BMI) [Ratio] 30.2 kg/m2 Dr. Tu Hector DO Work Phone: [facility] 09-13-2024 18:52-0500 Body weight 77.[address] Tu Hector DO Work Phone: [facility] 09-02-2024 13:16-0500 Body temperature 98.91 [degF] Dwayne Littlejohn MD Work Phone: [facility] 09-02-2024 13:16-0500 Body weight 77.7 kg Dwayne Littlejohn MD Work Phone: [facility] 09-02-2024 13:16-0500 Diastolic blood pressure 82 mm[Hg] Dwayne Littlejohn MD Work Phone: [facility] 09-02-2024 13:16-0500 Heart rate 90 /min Dwayne Littlejohn MD Work Phone: [facility] 09-02-2024 13:16-0500 Respiratory rate 18 /min Dwayne Littlejohn MD Work Phone: [facility] 09-02-2024 13:16-0500 SaO2% (BldA) [Mass fraction] 94 % Dwayne Littlejohn MD Work Phone: [facility] 09-02-2024 13:16-0500 Systolic blood pressure 134 mm[Hg] Dwayne Littlejohn MD Work Phone: [facility] 06-20-2024 11:00-0500 Body temperature 98.9 [degF] Dr. Tu Hector DO Work Phone: [facility] 06-20-2024 11:00-0500 Diastolic blood pressure 78 mm[Hg] Dr. Tu Hector DO Work Phone: [facility] 06-20-2024 11:00-0500 Heart rate 82 /min Dr. Tu Hector DO Work Phone: [facility] 06-20-2024 11:00-0500 Respiratory rate 16 /min Dr. Tu Hector DO Work Phone: [facility] 06-20-2024 11:00-0500 SaO2% (BldA) [Mass fraction] 99 % Dr. Tu Hector DO Work Phone: [facility] 06-20-2024 11:00-0500 Systolic blood pressure 115 mm[Hg] Dr. Tu Hector DO Work Phone: [facility] 06-20-2024 09:31-0500 Inhaled oxygen flow rate 1 L/min Dr. Tu Hector DO Work Phone: [facility] 06-20-2024 08:56-0500 Body mass index (BMI) [Ratio] 31.4 kg/m2 Dr. Tu Hector DO Work Phone: [facility] 06-20-2024 08:56-0500 Body weight 77.[address] Tu Hector DO Work Phone: [facility] 05-31-2024 16:45-0500 Body temperature 99.1 [degF] Sergio Athy PA-C Work Phone: [facility] 05-31-2024 16:45-0500 Body weight 75.4 kg Sergio Athy PA-C Work Phone: [facility] 05-31-2024 16:45-0500 Diastolic blood pressure 84 mm[Hg] Sergio Athy PA-C Work Phone: [facility] 05-31-2024 16:45-0500 Heart rate 94 /min Sergio Athy PA-C Work Phone: [facility] 05-31-2024 16:45-0500 Respiratory rate 18 /min Sergio Athy PA-C Work Phone: [facility] 05-31-2024 16:45-0500 SaO2% (BldA) [Mass fraction] 95 % Sergio Athy PA-C Work Phone: [facility] 05-31-2024 16:45-0500 Systolic blood pressure 140 mm[Hg] Sergio Athy PA-C Work Phone: [facility] 02-21-2024 14:34-0400 Body height 157.[address] SHANTEL SHI MD [facility] 02-21-2024 14:34-0400 Body temperature 98.42 [degF] DR SHANTEL SHI MD [facility] 02-21-2024 14:34-0400 Body weight 72.[address] SHANTEL SHI MD [facility] 02-21-2024 14:34-0400 Diastolic Blood Pressure Non-Invasive 94 mm[Hg] DR SHANTEL SHI MD [facility] 02-21-2024 14:34-0400 Heart rate 110 /min DR SHANTEL SHI MD [facility] 02-21-2024 14:34-0400 Respiratory rate 20 /min DR SHANTEL SHI MD [facility] 02-21-2024 14:34-0400 Systolic Blood Pressure Non-Invasive 148 mm[Hg] DR SHANTEL SHI MD [facility] 02-20-2024 15:18-0400 Blood Pressure Cuff Size CHRISRY MASTERSONESKA DO [facility] 02-20-2024 15:18-0400 Blood Pressure Location CHRIS MASTERSONESKA DO [facility] 02-20-2024 15:18-0400 Blood Pressure Method CHRIS DURESKA DO [facility] 02-20-2024 15:18-0400 Body temperature 98.24 [degF] CHRIS DURESKA DO [facility] 02-20-2024 15:18-0400 Diastolic Blood Pressure Non-Invasive 87 mm[Hg] CHRIS DURESKA DO [facility] 02-20-2024 15:18-0400 Heart rate 98 /min CHRIS DURESKA DO [facility] 02-20-2024 15:18-0400 Respiratory rate 18 /min CHRIS DURESKA DO [facility] 02-20-2024 15:18-0400 Systolic Blood Pressure Non-Invasive 134 mm[Hg] CHRIS DURESKA DO [facility] 02-11-2024 07:53-0400 Diastolic Blood Pressure Non-Invasive 84 mm[Hg] DR SHANTEL SHI MD [facility] 02-11-2024 07:53-0400 Heart rate 80 /min DR SHANTEL SHI MD [facility] 02-11-2024 07:53-0400 Respiratory rate 18 /min DR SHANTEL SHI MD [facility] 02-11-2024 07:53-0400 Systolic Blood Pressure Non-Invasive 114 mm[Hg] DR SHANTEL SHI MD [facility] 02-11-2024 07:09-0400 Diastolic Blood Pressure Non-Invasive 59 mm[Hg] DR SHANTEL SHI MD [facility] 02-11-2024 07:09-0400 Heart rate 78 /min DR SHANTEL SHI MD [facility] 02-11-2024 07:09-0400 Respiratory rate 18 /min DR SHANTEL SHI MD [facility] 02-11-2024 07:09-0400 Systolic Blood Pressure Non-Invasive 115 mm[Hg] DR SHANTEL SHI MD [facility] 02-11-2024 06:57-0400 Heart rate 80 /min DR SHANTEL SHI MD [facility] 02-11-2024 06:57-0400 Respiratory rate 20 /min DR SHANTEL SHI MD [facility] 02-11-2024 06:34-0400 Body height 157.[address] SHANTEL SHI MD [facility] 02-11-2024 06:34-0400 Body temperature 99.32 [degF] DR SHANTEL SHI MD [facility] 02-11-2024 06:34-0400 Body weight [address] SHANTEL SHI MD [facility] 02-11-2024 06:34-0400 Diastolic Blood Pressure Non-Invasive 77 mm[Hg] DR SHANTEL SHI MD [facility] 02-11-2024 06:34-0400 Systolic Blood Pressure Non-Invasive 115 mm[Hg] DR SHANTEL SHI MD [facility] 02-04-2024 13:05-0400 Body temperature 99.86 [degF] DR SHANTEL SHI MD [facility] 02-04-2024 13:05-0400 Body weight [address] SHANTEL SHI MD [facility] 02-04-2024 13:05-0400 Diastolic Blood Pressure Non-Invasive 82 mm[Hg] DR SHANTEL SHI MD [facility] 02-04-2024 13:05-0400 Heart rate 78 /min DR SHANTEL SHI MD [facility] 02-04-2024 13:05-0400 Respiratory rate 18 /min DR SHANTEL SHI MD [facility] 02-04-2024 13:05-0400 Systolic Blood Pressure Non-Invasive 125 mm[Hg] DR SHANTEL SHI MD [facility] 01-28-2024 14:03-0400 Diastolic Blood Pressure Non-Invasive 87 mm[Hg] MAXINE TRIVEDI MD [facility] 01-28-2024 14:03-0400 Heart rate 86 /min MAXINE TRIVEDI MD [facility] 01-28-2024 14:03-0400 Respiratory rate 16 /min MAXINE TRIVEDI MD [facility] 01-28-2024 14:03-0400 Systolic Blood Pressure Non-Invasive 141 mm[Hg] MAXINE TRIVEDI MD [facility] 01-28-2024 12:45-0400 Body temperature 100.4 [degF] MAXINE TRIVEDI MD [facility] 01-28-2024 12:45-0400 Body weight 74.4 kg MAXINE TRIVEDI MD [facility] 01-28-2024 12:45-0400 Diastolic Blood Pressure Non-Invasive 93 mm[Hg] MAXINE TRIVEDI MD [facility] 01-28-2024 12:45-0400 Heart rate 105 /min MAXINE TRIVEDI MD [facility] 01-28-2024 12:45-0400 Respiratory rate 16 /min MAXINE TRIVEDI MD [facility] 01-28-2024 12:45-0400 Systolic Blood Pressure Non-Invasive 151 mm[Hg] MAXINE TRIVEDI MD [facility] 07-13-2023 17:41-0500 Heart rate 82 /min [facility] 07-13-2023 17:41-0500 Respiratory rate 16 /min [facility] 07-13-2023 15:22-0500 Body height 157.48 cm [facility] 07-13-2023 15:22-0500 Body mass index (BMI) [Ratio] 30.7 kg/m2 [facility] 07-13-2023 15:22-0500 Body temperature 97.8 [degF] [facility] 07-13-2023 15:22-0500 Body weight 76.29 kg [facility] 07-13-2023 15:22-0500 Diastolic blood pressure 91 mm[Hg] [facility] 07-13-2023 15:22-0500 SaO2% (BldA) [Mass fraction] 96 % [facility] 07-13-2023 15:22-0500 Systolic blood pressure 148 mm[Hg] [facility] 01-12-2023 10:24-0400 Body height 160 cm Oz Salazar MD Work Phone: [facility] 01-12-2023 10:24-0400 Body mass index (BMI) [Ratio] 28.87 kg/m2 Oz Salazar MD Work Phone: [facility] 01-12-2023 10:24-0400 Body weight 73.94 kg Oz Salazar MD Work Phone: [facility] 01-12-2023 10:24-0400 Diastolic blood pressure 75 mm[Hg] Oz Salazar MD Work Phone: [facility] 01-12-2023 10:24-0400 Heart rate 77 /min Oz Salazar MD Work Phone: [facility] 01-12-2023 10:24-0400 Systolic blood pressure 120 mm[Hg] Oz Salazar MD Work Phone: [facility] 12-20-2022 13:42-[address] LOKI PETERS DO [facility] 12-20-2022 13:42-0400 Body temperature 99.32 [degF] DR LOKI PETERS DO [facility] 12-20-2022 13:42-0400 Diastolic Blood Pressure Non-Invasive [address] PET[address] DO [facility] 12-20-2022 13:42-0400 Heart rate 99 /min DR LOKI PETERS DO [facility] 12-20-2022 13:42-0400 Respiratory rate 16 /min DR LOKI PETERS DO [facility] 12-20-2022 13:42-0400 Systolic Blood Pressure Non-Invasive [address] DO [facility] 12-20-2022 12:55-0400 Body temperature 100.4 [degF] Jose F Cruz DETECTIVE NARCOTICS AND VICE.BILLBOARD POSTER HELPER Work Phone: [facility] 12-20-2022 12:55-0400 Body weight 71.49 kg Jose F Cruz DETECTIVE NARCOTICS AND VICE.BILLBOARD POSTER HELPER Work Phone: [facility] 12-20-2022 12:55-0400 Diastolic blood pressure 84 mm[Hg] Jose F Cruz DETECTIVE NARCOTICS AND VICE.BILLBOARD POSTER HELPER Work Phone: [facility] 12-20-2022 12:55-0400 Heart rate 115 /min Jose F Cruz DETECTIVE NARCOTICS AND VICE.BILLBOARD POSTER HELPER Work Phone: [facility] 12-20-2022 12:55-0400 Respiratory rate 21 /min Jose F Cruz DETECTIVE NARCOTICS AND VICE.BILLBOARD POSTER HELPER Work Phone: [facility] 12-20-2022 12:55-0400 SaO2% (BldA) [Mass fraction] 97 % Jose F Cruz DETECTIVE NARCOTICS AND VICE.BILLBOARD POSTER HELPER Work Phone: [facility] 12-20-2022 12:55-0400 Systolic blood pressure 108 mm[Hg] Jose F Cruz DETECTIVE NARCOTICS AND VICE.BILLBOARD POSTER HELPER Work Phone: [facility] Encounters Encounter Date Encounter Type Care Provider Facility Start: 03-12-2025 End: 03-12-2025 ambulatory JOSELIN MAST DETECTIVE NARCOTICS AND VICE-BILLBOARD POSTER HELPER [facility] Start: 03-12-2025 End: 03-12-2025 Patient encounter procedure JOSELIN MAST DETECTIVE NARCOTICS AND VICE-BILLBOARD POSTER HELPER [facility] Start: 03-06-[address] Ranjith Chance MD -[facility] Start: 03-06-2025 End: 03-06-[address] Tu Hector DO Work Phone: -[facility] Start: 03-06-2025 End: 03-06-[address] Alis Chance MD -[facility] Work Phone: Start: 02-26-2025 End: 02-26-[address] Tu Hector DO Work Phone: [facility] Start: 02-26-2025 End: 02-26-2025 Patient encounter procedure Anayeli Audelia TRUCKING SUPERVISOR-C -[facility] Work Phone: Start: 02-26-2025 End: 02-26-2025 ambulatory JOSELIN MAST Facility:[facility] Start: 02-20-[address] Ranjith Chance MD -[facility] Start: 02-20-2025 End: 02-20-2025 Patient encounter procedure Anayeli Audelia TRUCKING SUPERVISOR-C -[facility] Work Phone: Start: 02-20-2025 End: 02-20-[address] Tu Hector DO Work Phone: -[facility] Start: 02-19-2025 Non-patient / Non-visit Dr. Jasmin MYERS -[facility] Start: 02-19-2025 End: 02-19-[address] Tu Hector DO Work Phone: -Cardiovascular Services Start: 02-19-2025 End: 02-19-[address] Kilo Morse MD -Cardiovascular Services Work Phone: Start: 02-19-2025 End: 02-19-2025 ambulatory JOSELIN MAST Facility:[facility] Start: 02-14-2025 Non-patient / Non-visit Dr. Breanne Mcqueen MD [facility] Work Phone: Start: 02-14-2025 Dr. Delia garnett MD [facility] Work Phone: Start: 02-14-2025 Non-patient / Non-visit Heena witt PA-C -[facility] Start: 02-14-2025 Heena Courtney PA-C -[facility] Start: 02-13-2025 Non-patient / Non-visit Dr. Breanne Mcqueen MD [facility] Work Phone: Start: 02-13-2025 Dr. Delia garnett MD [facility] Work Phone: Start: 02-13-2025 Non-patient / Non-visit Heena witt PA-C -[facility] Start: 02-13-2025 Heena Courtney PA-C -[facility] Start: 02-12-2025 Non-patient / Non-visit Dr. Breanne Mcqueen MD [facility] Work Phone: Start: 02-12-2025 Dr. Delia garnett MD [facility] Work Phone: Start: 02-12-2025 Non-patient / Non-visit Heena witt PA-C -[facility] Start: 02-12-2025 Heena Courtney PA-C -[facility] Start: 02-11-2025 Non-patient / Non-visit Dr. Lane Boyce MD -[facility] Start: 02-11-2025 Dr. Cristin gresham MD -[facility] Start: 02-11-2025 ambulatory Delia Mcqueen Facility :[facility] Start: 02-11-2025 End: 02-14-2025 Evaluation and management of inpatient Dr. Ami Magdaleno MD -[facility] 3 Work Phone: Start: 02-11-2025 End: 02-14-2025 Dr. Delia Mcqueen MD -[facility] 3 Work Phone: Start: 01-28-2025 End: 01-28-2025 Dr. Georgi Barroso DO -Emergency Departoh nt Work Phone: Start: 01-28-2025 End: 01-28-2025 Emergency department patient visit Dr. Tu Hector DO Work Phone: -Emergency Department Work Phone: Start: 01-23-[address] Ranjith Chance MD -[facility] Start: 01-23-2025 End: 01-23-[address] Alis Chance MD -[facility] Work Phone: Start: 01-23-2025 End: 01-23-2025 Dr. Alis Chance MD -[facility] Work Phone: Start: 01-23-2025 End: 01-23-[address] Tu Hector DO Work Phone: -[facility] Start: 01-16-2025 End: 01-16-[address] Tu Hector DO Work Phone: -Cat Scan [facility] Start: 01-16-2025 End: 01-16-2025 Patient encounter procedure Anayeli Audelia TRUCKING SUPERVISOR-C -Cat Scan [facility] Work Phone: Start: 01-16-2025 End: 01-16-2025 Anayeli Audelia TRUCKING SUPERVISOR-C -Cat Scan [facility] Work Phone: Start: 01-16-2025 End: 01-16-2025 ambulatory Tu Hector Facility:[facility] Start: 01-04-[address] Ranjith Chance MD -[facility] Start: 01-02-[address] Ranjith Chance MD -[facility] Start: 01-02-2025 End: 01-02-[address] Alis Chance MD -[facility] Work Phone: Start: 01-02-2025 End: 01-02-2025 Dr. [facility] Work Phone: Start: 01-02-2025 End: 01-02-[address] Tu Hector DO Work Phone: [facility] Work Phone: Start: 12-12-2024 End: 12-12-2024 Patient encounter procedure Anayeli Win NP-Ed[place] -[facility] Work Phone: Start: 12-12-2024 End: 12-12-2024 Anayeli Win TRUCKING SUPERVISOR-C -[facility] Work Phone: Start: 12-12-2024 End: 12-12-[address] Tu Hector DO Work Phone: [facility] Work Phone: Start: 12-12-[address] Ranjith [facility] Start: 11-24-2024 End: 11-24-2024 Emergency department patient visit ENID FORMAN MD [facility] Start: 11-21-2024 End: 11-21-[address] [facility] Work Phone: Start: 11-21-2024 End: 11-21-2024 Dr. Alis [facility] Work Phone: Start: 11-21-2024 End: 11-21-2024 ambulatory Tu Hector Facility:[facility] Start: 11-17-2024 End: 11-17-[address] Kilo [facility] Work Phone: Start: 11-17-2024 End: 11-17-2024 Dr. Kilo Morse MD -[facility] Work Phone: Start: 11-17-2024 End: 11-17-2024 ambulatory Tu Hector Facility:[facility] Start: 11-16-2024 ambulatory Tu Hector Facility :[facility] Start: 11-16-2024 Non-patient / Non-visit Dr. Zhanna Hicks MD -[facility] Start: 11-16-2024 Dr. Omar Hicks MD -[facility] Start: 11-16-2024 End: 11-16-2024 Admission to same day surgery center Dr. Omar Hicks MD -[facility] Start: 11-16-2024 End: 11-16-2024 Dr. Omar Hicks MD -[facility] Start: 11-16-2024 End: 11-16-2024 ambulatory Tu Tawny Facility:[facility] Start: 11-09-2024 End: 11-09-2024 Patient encounter procedure Anayeli Audelia TRUCKING SUPERVISOR-C -[facility] Work Phone: Start: 11-09-2024 End: 11-09-2024 Anayeli Audelia TRUCKING SUPERVISOR-C -[facility] Work Phone: Start: 11-09-2024 End: 11-09-2024 ambulatory Tu Hector Facility:[facility] Start: 11-01-2024 End: 11-01-2024 Telephone encounter Wilfrido Luis DO Work Phone: [facility] Comment on above: Other Start: 10-31-2024 End: 10-31-2024 Patient encounter procedure Anayeli Audelia TRUCKING SUPERVISOR-C -[facility] Work Phone: Start: 10-31-2024 End: 10-31-2024 Anayeli Audelia TRUCKING SUPERVISOR-C -[facility] Work Phone: Start: 10-31-2024 End: 10-31-2024 ambulatory Tu Hector Facility:[facility] Start: 10-27-2024 End: 10-27-[address] Omar Hicks MD -[facility] Work Phone: Start: 10-27-2024 End: 10-27-2024 Dr. Omar Hicks MD -[facility] Work Phone: Start: 10-27-2024 End: 10-27-2024 ambulatory Tu Hector Facility:[facility] Start: 10-26-2024 End: 10-26-2024 Patient encounter procedure Anayeli Win [facility] Work Phone: Start: 10-26-2024 End: 10-26-2024 Anayeli Win [facility]dwin [facility] Work Phone: Start: 10-26-2024 End: 10-26-2024 ambulatory Tu Hector Facility:[facility] Start: 10-26-2024 End: 10-26-2024 Office outpatient new 60 minutes Joselyn Tucker MD Work Phone: [facility] Comment on above: Multinodular goiter (nontoxic) (Primary Dx); Stage 3a chronic kidney disease (HCC) Start: 10-26-2024 End: 10-26-2024 ambulatory [facility] Start: 10-25-2024 End: 10-25-[address] Wilfrido Karimi MD -[facility] Work Phone: Start: 10-25-2024 End: 10-25-2024 Dr. Wilfrido Karimi MD -[facility] Work Phone: Start: 10-25-2024 End: 10-25-2024 ambulatory Wilfrido Karimi [facility] Start: 10-24-2024 End: 11-05-2024 Telephone encounter Lizandro Fortune MD Work Phone: [facility] Comment on above: Malignant small cell cancer (CMS/HCC) (HCC) (Primary Dx) Start: 10-24-2024 End: 10-24-2024 Office outpatient visit 10 minutes Lizandro Fortune MD Work Phone: [facility] Thoracic Surgery [facility] Comment on above: Malignant small cell cancer (CMS/HCC) (HCC) (Primary Dx); Adenopathy; Right atrial mass; Pleural effusion Start: 10-24-2024 End: 10-24-2024 ambulatory [facility] Start: 10-23-2024 End: 10-24-2024 Telephone encounter Scot Teresa DO Work Phone: [facility] [place] Start: 10-21-2024 End: 10-21-2024 Dr. Tay Dumont MD -Emergency Departmen t Work Phone: Start: 10-21-2024 End: 10-21-2024 Emergency department patient visit Dr. Tu Hector DO Work Phone: -Emergency Department Work Phone: Start: 10-20-2024 End: 10-20-2024 Subsequent hospital visit by physician Lizandro Fortune MD Work Phone: [facility] PET Comment on above: Pleural mass Start: 10-20-2024 End: 10-20-2024 ambulatory [facility] Start: 10-19-2024 End: 10-19-2024 Orders Only Yaritza Johnson DO Work Phone: [facility] Lung Nodule [facility] [place] Comment on above: Small cell carcinoma of left lung, unspecified part of lung (HCC) (Primary Dx) Start: 10-17-2024 End: 10-17-2024 Documentation procedure Aixa [facility] g Nodule [facility] Comment on above: Tumor Board Recommen dations (Thoracic Tumor Board Recommendations 10/17/24) Start: 10-17-2024 End: 10-19-2024 Telephone encounter Aixa [facility] Lung Nodule [facility] [place] Comment on above: Care Coordination (E xpedite PET scan and send records to med onc in [place] ) Start: 10-17-2024 End: 10-17-2024 Office outpatient visit 25 minutes Yaritza Johnson DO Work Phone: [facility] Lung Nodule [facility] [place] Comment on above: Small cell carcinoma of left lung, unspecified part of lung (HCC) (Primary Dx); Chronic obstructive pulmonary disease, unspecified COPD type (HCC); 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 Start: 10-17-2024 End: 10-17-2024 ambulatory YARITZA JOHNSON [facility] Start: 10-17-2024 End: 10-17-2024 Subsequent hospital visit by physician Lizandro Fortune MD Work Phone: [facility] MRI Comment on above: Pleural mass Start: 10-17-2024 End: 10-17-2024 [facility] Start: 10-10-2024 End: 10-10-[address] Tu Hector DO -Cat Scan, [facility] Work Phone: Start: 10-10-2024 End: 10-10-[address] Tu Hector DO Work Phone: [facility] Work Phone: Start: 10-09-2024 End: 10-10-2024 ambulatory DAIJA MEJIA [facility] Start: 10-09-2024 End: 10-09-2024 Subsequent hospital visit by physician Daija Mejia MD Work Phone: [facility] Comment on above: Hilar mass; Adenopathy; Lung mass Start: 10-06-[address] JANNETH SLATER MD Facility:[facility] Start: 10-05-2024 End: 10-06-2024 ambulatory PCP DARRELL [facility] Start: 10-05-2024 End: 10-06-2024 Subsequent hospital visit by physician Guanakito Rodriguez MD Work Phone: [facility] Cardiac Post Intervention Progressive Care Unit [facility] PCU 4W Comment on above: Pleural effusion (Pr imary Dx); Lung mass Start: 10-05-2024 End: 10-05-2024 Telephone encounter Daija Mejia MD Work Phone: [facility] [place] Comment on above: Care Coordination Start: 10-05-2024 End: 10-05-2024 Emergency department patient visit Dr. Tu Hector DO Work Phone: -Emergency Department Work Phone: Start: 10-03-2024 End: 10-03-2024 Office outpatient new 45 minutes Wilfrido Luis DO Work Phone: [facility] Cardiology - [place] Comment on above: Pericardial effusion Start: 10-03-2024 End: 10-03-2024 Telephone encounter Aixa Roche [facility] [place] Comment on above: Care Coordination (L ehsan Nodule Follow up / [facility] Start: 10-03-2024 End: 10-03-2024 ambulatory WILFRIDO LUIS [facility] Start: 10-03-2024 End: 10-03-2024 Office outpatient new 45 minutes Yaritza Johnson DO Work Phone: [facility] [place] Comment on above: Lung mass (Primary D x); Pulmonary emphysema, unspecified emphysema type (HCC); Adenopathy; Pericardial effusion; Chronic obstructive pulmonary disease, unspecified COPD type (HCC); History of tobacco use Start: 10-03-2024 End: 10-03-2024 ambulatory YARITZA JOHNSON [facility] Start: 10-03-2024 End: 10-03-2024 Office outpatient new 60 minutes Lizandro Fortune MD Work Phone: [facility] Cardiovascular Thoracic Surgery - [place] Comment on above: Hilar mass (Primary Dx); Right atrial mass Start: 10-03-2024 End: 10-03-2024 ambulatory LIZANDRO FORTUNE [facility] Start: 09-29-2024 ambulatory Jose Perdomo Facility:[facility] Start: 09-28-2024 End: 09-28-2024 Patient encounter procedure Rhiannon Georges TRUCKING SUPERVISOR-C -[facility] Work Phone: Start: 09-28-2024 End: 09-28-2024 ambulatory Tu Hector Facility:[facility] Start: 09-25-2024 End: 09-25-2024 ambulatory TU HECTOR DO Facility:[facility] Start: 09-25-2024 Non-patient / Non-visit Dr. Jose joshi DO -[facility] Start: 09-25-2024 End: 09-25-[address] Tu Hector DO Work Phone: [facility] Work Phone: Start: 09-25-2024 End: 09-25-2024 Patient encounter procedure Rhiannon Georges NP-C -Pulmonary Services/Neurology Work Phone: Start: 09-25-2024 End: 09-25-2024 ambulatory Rhiannon Georges NP Facility:[facility] Start: 09-22-2024 End: 09-22-[address] Tu Hector DO Work Phone: [facility] Work Phone: Start: 09-22-2024 End: 09-22-2024 Patient encounter procedure Rhiannon Georges NP-C -Laboratory Work Phone: Start: 09-22-2024 End: 09-22-2024 Patient encounter procedure Rhiannon Georges NP-C -[facility] Work Phone: Start: 09-22-2024 End: 09-22-2024 ambulatory Tu Hector Facility:[facility] Start: 09-21-2024 End: 09-22-2024 ambulatory Rhiannon Georges NP Facility:[facility] Start: 09-19-2024 End: 09-19-2024 ambulatory TU HECTOR DO Facility:[facility] Start: 09-19-2024 End: 09-19-2024 Patient encounter procedure JOSELIN MAURER DETECTIVE NARCOTICS AND VICE-BILLBOARD POSTER HELPER [facility] Start: 09-18-[address] Ranjith Chance MD -[facility] Start: 09-18-2024 End: 09-18-[address] Alis Chance MD -[facility] Work Phone: Start: 09-18-2024 End: 09-18-2024 ambulatory Alis Chance Facility:[facility] Start: 09-13-2024 End: 09-14-2024 Emergency department patient visit Dr. Chris Maria MD -Emergency Department Work Phone: Start: 09-13-2024 End: 09-17-2024 ambulatory TU HECTOR DO Facility[facility] Start: 09-13-2024 End: 09-17-2024 Outreach Lab JOSELIN MAURER DETECTIVE NARCOTICS AND VICE-BILLBOARD POSTER HELPER [facility] Start: 09-13-2024 End: 09-13-2024 ambulatory TU HECTOR DO Facility:[facility] Start: 09-13-2024 End: 09-13-2024 Patient encounter procedure JOSELIN MAURER DETECTIVE NARCOTICS AND VICE-BILLBOARD POSTER HELPER [facility] Start: 09-03-2024 End: 09-03-2024 Follow-up encounter Renetta Villalobos APRN.BILLBOARD POSTER HELPER Work Phone: [facility] Start: 09-02-2024 End: 09-02-2024 ambulatory SERGIO MOHR Facility:[facility] Start: 09-02-2024 End: 09-02-2024 Patient encounter procedure Dwayne Littlejohn MD Work Phone: [facility] Comment on above: COPD with exacerbati on (HCC) (Primary Dx); URI, acute Start: 06-20-2024 End: 06-20-2024 Emergency department patient visit Dr. Anh Irene DO -Emergency Department Work Phone: Start: 05-31-2024 End: 05-31-2024 Subsequent hospital visit by physician Xr [facility] Work Phone: Radiology Comment on above: Acute cough [R05.1] Start: 05-31-2024 End: 05-31-2024 ambulatory SERGIO MOHR Facility:[facility] Start: 05-31-2024 End: 05-31-2024 Patient encounter procedure Sergio Mohr PA-C Work Phone: [facility] Comment on above: Infiltrate of lower lobe of left lung present on imaging study (Primary Dx) Start: 02-21-2024 End: 02-21-2024 Emergency department patient visit DR SHANTEL SHI MD [facility] Start: 02-21-2024 ambulatory CHRIS ALATORRE DO Facili ty:[facility] Start: 02-20-2024 End: 02-20-2024 Emergency department patient visit CHRIS ALATORRE DO [facility] Start: 02-11-2024 End: 02-11-2024 Emergency department patient visit DR SHANTEL SHI MD [facility] Start: 02-04-2024 End: 02-04-2024 Emergency department patient visit DR SHANTEL SHI MD [facility] Start: 01-28-2024 End: 01-28-2024 Emergency department patient visit MAXINE TRIVEDI MD [facility] Start: 11-25-2023 End: 11-25-2023 ambulatory TU HECTOR DO Facility:[facility] Start: 11-25-2023 End: 11-25-2023 Patient encounter procedure TU HECTOR DO [facility] Start: 10-28-2023 End: 10-28-2023 ambulatory [facility] Work Phone: Start: 10-28-2023 End: 10-28-2023 Patient encounter procedure [facility] Work Phone: Start: 09-29-2023 End: 10-03-2023 ambulatory TU HECTOR DO Facility:[facility] Start: 09-29-2023 End: 10-03-2023 Outreach Lab TU HECTOR DO [facility] Start: 07-13-2023 End: 07-13-2023 Emergency department patient visit [facility] Work Phone: Start: 03-09-2023 End: 03-13-2023 ambulatory TU MIRZALAY Facility:[facility] Start: 03-09-2023 End: 03-13-2023 Outreach Lab TUTED HECTOR DO [facility] Start: 01-18-2023 ambulatory Marty Daily PA-C Work Phone: [facility] Start: 01-15-2023 Telephone encounter Oz davis MD Work Phone: [facility] Start: 01-12-2023 End: 01-12-2023 Office outpatient new 30 minutes Oz Salazar MD Work Phone: [facility] Comment on above: Elbow mass, left (Pr imary Dx) Start: 12-30-2022 End: 12-30-2022 Patient encounter procedure TU HECTOR DO [facility] Start: 12-20-2022 End: 12-20-2022 Emergency department patient visit DR LOKI PETERS DO [facility] Start: 12-20-2022 End: 12-20-2022 Patient encounter procedure Jose F Cruz DETECTIVE NARCOTICS AND VICE.BILLBOARD POSTER HELPER Work Phone: [facility] Comment on above: Cat bite, initial en counter (Primary Dx) Start: 10-30-2021 End: 10-30-2021 Patient encounter procedure CHANDLER WEBER DETECTIVE NARCOTICS AND VICE-BILLBOARD POSTER HELPER [facility] Start: 10-24-2021 End: 10-24-2021 Patient encounter procedure TU HECTOR DO [facility] Start: 10-23-2021 End: 10-23-2021 Patient encounter procedure TU HECTOR DO [facility] Start: 01-14-2021 End: 01-14-2021 Subsequent hospital visit by physician Xr [facility] [place] Work Phone: Radiology Comment on above: Cough [R05] Start: 12-17-2020 End: 12-17-2020 Subsequent hospital visit by physician Xr [facility] [place] Work Phone: Radiology Comment on above: Cough [R05] Procedures Date Procedure Procedure Detail Performing Clinician Start: 03-06-[address] Tu Hector DO Work Phone: Start: 02-26-2025 MRI of brain with contrast Dr. Tu Hector DO Work Phone: Start: 02-20-[address] Tu Hector DO Work Phone: Start: 02-20-2025 Serum inorganic phos phate measurement Dr. Tu Hector DO Work Phone: Start: 02-14-2025 Blood count smear mc rscp w/mnl difrntl wbc count Dr. Tu Hector DO Work Phone: Start: 02-14-[address] Tu Hector DO Work Phone: Start: 02-14-2025 Mean corpuscular hem oglobin concentration determination Dr. Tu Hector DO Work Phone: Start: 02-14-2025 Nucleated red blood cell count procedure Dr. Tu Hector DO Work Phone: Start: 02-14-2025 Platelet mean volume determination Dr. Tu Hector DO Work Phone: Start: 02-12-[address] Joel Hector DO Work Phone: Start: 02-12-[address] Tu Hector DO Work Phone: Start: 02-12-2025 Plain X-ray abdomen Dr. Tu Hector DO Work Phone: Start: 02-11-2025 Urine microscopy: red cells Dr. Tu Hector DO Work Phone: Start: 02-11-2025 Urnls dip stick/tabl et reagent auto microscopy Dr. Tu Hector DO Work Phone: Start: 02-11-[address] Tu Hector DO Work Phone: Start: 02-11-[address] se measurement [address]. Tu Hector DO Work Phone: Start: 02-11-2025 Computed tomography of abdomen and pelvis with intravenous contrast Dr. Tu Hector DO Work Phone: Start: 01-28-2025 Blood count smear mc rscp w/mnl difrntl wbc count Dr. Tu Hector DO Work Phone: Start: 01-28-2025 Blood disorder - ini tial assessment Dr. Tu Hector DO Work Phone: Start: 01-28-[address] Tu Hector DO Work Phone: Start: 01-28-2025 Mean corpuscular hem oglobin concentration determination Dr. Tu Hector DO Work Phone: Start: 01-28-2025 Nucleated red blood cell count procedure Dr. Tu Hector DO Work Phone: Start: 01-28-2025 Platelet mean volume determination Dr. Tu Hector DO Work Phone: Start: 01-28-[address] se measurement Dr. Tu Hector DO Work Phone: Start: 01-28-2025 Urine microscopy: red cells Dr. Tu Hector DO Work Phone: Start: 01-28-2025 Urnls dip stick/tabl et reagent auto microscopy Dr. uT Hector DO Work Phone: Start: 01-28-2025 Computed tomography of abdomen and pelvis with intravenous contrast Dr. Tu Hector DO Work Phone: Start: 01-28-2025 CT angiography of ch est with contrast Dr. Tu Hector DO Work Phone: Start: 01-23-2025 Blood count smear rscp w/mnl difrntl wbc count Dr. Tu Hector DO Work Phone: Start: 01-23-[address] Tu Hector DO Work Phone: Start: 01-23-2025 Mean corpuscular hem oglobin concentration determination Dr. Tu Hector DO Work Phone: Start: 01-23-2025 Nucleated red blood cell count procedure Dr. Tu Hector DO Work Phone: Start: 01-23-2025 Platelet mean volume determination Dr. Tu Hector DO Work Phone: Start: [...] Jackelyn Hector DO Work Phone: Start: 10-21-2024 Blood count smear mc rscp w/mnl difrntl wbc count Dr. Tu Hector DO Work Phone: Start: 10-21-[address] Tu Hector DO Work Phone: Start: 10-21-2024 Mean corpuscular hem oglobin concentration determination Dr. Tu Hector DO Work Phone: Start: 10-21-2024 Nucleated red blood cell count procedure Dr. Tu Hector DO Work Phone: Start: 10-21-2024 Platelet mean volume determination Dr. Tu Hector DO Work Phone: Start: 10-10-2024 Fine needle aspirati on using ultrasound guidance Dr. Tu Hector DO Work Phone: Start: 10-09-2024 Smr prim src gram/gi emsa stain bct fungi/cell Daija Mejia MD Work Phone: Start: 10-06-2024 Glucose quantitative blood xcpt reagent strip Jeffrey Horne DO Work Phone: Start: 10-06-2024 Radiologic exam swal low function contrast study Sushila Tam MD Work Phone: Start: 10-06-2024 Radiologic exam ches t 2 views Sushila Tam MD Work Phone: Start: 10-06-2024 Thoracentesis needle /cath pleura w/imaging Sushila Tam MD Work Phone: Start: 10-06-2024 Glucose quantitative blood xcpt reagent strip Jeffrey Horne [employer] Work Phone: Start: 10-06-2024 Comprehensive metabo lic [...] 01-14-2021 Radiologic exam ches t 2 views Lizandro Perez APRN.[employer] Work Phone: Start: 12-17-2020 Radiologic exam ches t 2 views Renetta Villalobos APRN.[employer] Work Phone: Start: 07-19-2012 Total knee replacement [...] DO Comment on above: Left Glenohumeral joint s tructure (body structure) TU HECTOR DO Comment on above: Left, ligament repai r Ligation of fallopian tube K DOMINIC HECTOR DO Plan of Treatment Date Care Activity Detail Author Start: 01-27-2034 DTaP/Tdap/Td Vaccines (3 - Td or Tdap) DTaP/Tdap/Td Vaccines (3 - Td or Tdap) [facility] Start: 01-27-2034 Urine microalbumin profile DTaP,Tdap,Td Vaccine (3 - Td or Tdap) [facility] Start: 12-15-2026 RSV Vaccine (1 - 1-dose 75+ series) RSV Vaccine (1 - 1-dose 75+ series) [facility] Start: 10-29-2025 End: 10-29-2025 Patient encounter procedure 10/29/2025 11:00 AM EDT Office Visit [facility] [address] [place] [phone] Joselyn Tucker MD [address] [place] [address] [facility] Start: 03-19-2025 Influenza vaccination Influenza Vaccine (Season Ended) [facility] Start: 03-06-2025 [facility] Start: 02-20-2025 [facility] Start: 02-14-2025 Patient discharge [facility] Start: 02-13-2025 Oxygen therapy [facility] Start: 02-13-2025 Inhalation therapy procedure [facility] Start: 02-13-2025 [facility] Start: 02-11-2025 End: 02-12-2025 [facility] Start: 02-11-2025 Application of intermittent pneumatic compression device [facility] Start: 02-11-2025 Following clinical pathway protocol [facility] Start: 02-11-2025 Venous catheter care management [facility] Start: 02-11-2025 Assessment of risk of venous thromboembolism [facility] Start: 02-11-2025 Insertion of catheter into peripheral vein [facility] Start: 02-11-2025 Measuring intake and output [facility] Start: 02-11-2025 Providing care according to standard [facility] Start: 02-11-2025 Provision of activity privileges [facility] Start: 02-11-2025 Referral to general surgeon [facility] Start: 02-11-2025 Referral to occupational therapist [facility] Start: 02-11-2025 Referral to service [facility] Start: 02-11-2025 Verification routine [facility] Start: 02-11-2025 Admission procedure [facility] Start: 02-11-2025 Hospital admission, emergency, from emergency room, medical nature [facility] Start: 02-11-2025 Plain X-ray abdomen Abdomen Single View (Portable) [facility] Start: 01-28-2025 [facility] Start: 01-23-2025 [facility] Start: 01-16-2025 Venous catheter care management [facility] Start: 01-02-2025 [facility] Start: 12-12-2024 [facility] Start: 11-16-2024 Patient discharge [facility] Start: 11-16-2024 Anesthesia access central venous circulation [facility] Start: 11-16-2024 Insj tunneled ctr vad w/subq port age 6 yr/> [facility] Start: 11-15-2024 End: 11-15-2024 Patient encounter procedure 11/15/2024 4:00 PM EDT Office Visit [facility] [address] [place] [address] BethanybeliaWilfrido nunez DO [address] [place] [address] [facility] Start: 10-31-2024 Patient referral [facility] Work Phone: Start: 10-31-2024 Venous catheter care management [facility] Start: 10-30-2024 End: 10-30-2024 Patient encounter procedure 10/30/2024 3:00 PM EDT Appointment [facility] [address] [place] [phone] Lizandro Fortune MD [address] [place] [address], [address] [place], [place] [id number] [facility] Start: 10-21-2024 [facility] Start: 10-21-2024 [facility] Start: 10-20-2024 End: 10-20-2024 Patient encounter procedure 10/20/2024 2:00 PM EDT Appointment [facility] [address] [place] [phone] Lizandro Fortune MD [address] [place] [address], [address] [place] [address] [facility] Start: 10-17-2024 End: 10-17-2024 Patient encounter procedure [facility] Start: 10-17-2024 Subsequent hospital visit by physician 10/17/2024 9:00 AM EDT Hospital Encounter [facility] [address] [place] [phone] Lizandro Fortune MD [address] [facility], [address] [place] [address] [facility] Start: 10-09-2024 End: 10-09-2024 Admission to same day surgery center 10/09/2024 1:30 PM EDT - 10/09/2024 3:00 PM EDT Surgery [facility] Endoscopy [address] [place] [phone] Daija Mejia MD [address] [place], [place] [phone] ENDOBRONCHIAL ULTRASOUND WITH TRANSBRONCHIAL NEEDLE ASPIRATION. POSSIBLE ENDOBRONCHIAL BIOPSIES, NEEDLE ASPIRATION, AND BRUSHINGS. [80726 (CPT )] [facility] Comment on above: ENDOBRONCHIAL ULTRASOUND WITH TRANSBRONC HIAL NEEDLE ASPIRATION. POSSIBLE ENDOBRONCHIAL BIOPSIES, NEEDLE ASPIRATION, AND BRUSHINGS. [76777 (CPT )] Start: 10-09-2024 End: 10-09-2024 [facility] ebus guided sampl 3/> node station/strux BRONCHOSCOPY, RIGID OR FLEXIBLE, WITH ENDOBRONCHIAL ULTRASOUND Hilar mass Adenopathy Lung mass 10/09/2024 1:30 PM EDT [facility] Start: 10-09-2024 Subsequent hospital visit by physician 10/09/2024 1:30 PM EDT Hospital Encounter [facility] [address] [place] [address] Daija Mejia MD [address] [place] [address] [facility] Start: 10-05-2024 [facility] Start: 10-05-2024 End: 10-05-2024 [facility] Start: 10-05-2024 Bacteria identified in Blood by Culture Blood Culture [facility] Start: 09-14-2024 [facility] Start: 09-13-2024 [facility] Start: 09-13-2024 [facility] Start: 07-19-2024 Advance Directive Discussion Advance Directive Discussion To Clinic Start: 07-19-2024 Medicare Advantage Annual Wellness Visit Medicare [facility] Annual Wellness Visit [facility] Start: 06-20-2024 [facility] Start: 03-19-2024 Covid-19 Vaccine ( season) Covid-19 Vaccine ( season) [facility] Start: 03-19-2024 Influenza vaccination Influenza Vaccine (#1) [facility] Start: 07-19-2023 Advance Directive Discussion Advance Directive Discussion [facility] Start: 03-19-2023 Influenza vaccination [facility] Start: 07-19-2022 ADVANCE DIRECTIVE DISCUSSION ADVANCE DIRECTIVE DISCUSSION [facility] Start: 07-19-2022 DEPRESSION ASSESSMENT DEPRESSION ASSESSMENT [facility] Start: 12-15-2016 BONE DENSITY BONE DENSITY [facility] Start: 12-15-2016 Pneumococcal Vaccine: 65+ (1 of 1 - PCV) Pneumococcal Vaccine: 65+ (1 of 1 - PCV) [facility] Start: 12-15-2016 PNEUMOCOCCAL: 65+ (1 - PCV) PNEUMOCOCCAL: 65+ (1 - PCV) [facility] Start: 12-15-2016 Screening for osteoporosis Bone Density Screening [facility] Start: 2011 RSV Immunization for Adults (1 - Risk 60-74 years 1-dose series) RSV Immunization for Adults (1 - Risk 60-74 years 1-dose series) [facility] Start: 12-15-2001 Pneumococcal Vaccine: 50+ (1 of 1 - PCV) Pneumococcal Vaccine: 50+ (1 of 1 - PCV) [facility] Start: 12-15-2001 SHINGRIX VACCINE (1 of 2) SHINGRIX VACCINE (1 of 2) [facility] Start: 12-15-2001 Zoster Vaccines (1 of 2) Zoster Vaccines (1 of 2) [facility] Start: 12-15-1996 COLOGUARD (FIT-DNA) COLOGUARD (FIT-DNA) [facility] Start: 12-15-1996 Colonoscopy COLONOSCOPY [facility] Start: 12-15-1996 COLORECTAL CANCER SCREENING COLORECTAL CANCER SCREENING [facility] Start: 12-15-[address] COLONOGRAPHY [facility] Start: 12-15-1996 DIABETES SCREEN DIABETES SCREEN [facility] Start: 12-15-1996 Diabetes Screening Diabetes Screening [facility] Start: 12-15-1996 FECAL OCCULT BLOOD FECAL OCCULT BLOOD [facility] Start: 12-15-1996 Lipid panel Lipid Screening [facility] Start: 12-15-1996 LIPID SCREEN LIPID SCREEN [facility] Start: 12-15-1996 Screening for malignant neoplasm of colon [facility] Start: 12-15-1996 SIGMOIDOSCOPY SIGMOIDOSCOPY [facility] Start: 1991 Mammography MAMMOGRAM [facility] Start: 1991 Screening for malignant neoplasm of breast [facility] Start: 12-15-1970 DTaP/Tdap/Td Vaccines (1 - Tdap) DTaP/Tdap/Td Vaccines (1 - Tdap) [facility] Start: 12-15-1970 Pneumococcal Vaccine: 50+ Years (1 of 2 - PCV) Pneumococcal Vaccine: 50+ Years (1 of 2 - PCV) [facility] Start: 12-15-1970 Urine microalbumin profile [facility] Start: 12-15-1969 Anxiety Screening Anxiety Screening [facility] Start: 12-15-1969 Depression Screening Depression Screening [facility] Start: 12-15-1969 Diabetes mellitus screening Diabetes Screening [facility] Start: 12-15-1969 HEPATITIS C SCREENING HEPATITIS C SCREENING [facility] Start: 12-15-1969 Hepatitis C screening Hepatitis C Screening [facility] Start: 1963 Depression Monitoring Depression Monitoring [facility] Start: 1963 Depression Screening Depression Screening [facility] Start: 12-15-1957 Pneumococcal Vaccine: 65+ Years (1 - PCV) Pneumococcal Vaccine: 65+ Years (1 - PCV) [facility] Start: 06-17-1952 COVID-19 VACCINE (#1) COVID-19 VACCINE (#1) [facility] Start: 1951 Lipid panel Lipid Panel [facility] Start: 1950 Screening for malignant neoplasm of colon [facility] Start: 1951 Screening for osteoporosis Bone Density Scan [facility] Start: 1951 Thyroid Nodule Ultrasound Thyroid Nodule Ultrasound [facility] End: 10-06-2024 Aerobic and Anaerobic Culture with Stain Aerobic and Anaerobic Culture with Stain Microbiology Routine Once (Lab) for 1 Occurrences starting 10/06/2024 until 10/06/2024 [facility] Work Phone: Comment on above: Once (Lab) for 1 Occurrences starting until 10/06/2024 Bacteria identified in Lower respiratory specimen by Aerobe culture Respiratory culture and Stain Microbiology Routine Hilar mass Adenopathy Lung mass 10/09/2024 3:34 PM EDT [facility] End: 10-06-2024 Bacteria identified in Unspecified specimen by Aerobe culture Culture, Aerobic Bacteria with Gram Stain Microbiology Timed Once for 1 Occurrences starting 10/06/2024 until 10/06/2024 [facility] Comment on above: Once for 1 Occurrences starting 10/07/19 until 10/06/2024 End: 10-06-2024 Bacteria identified in Unspecified specimen by Anaerobe culture Anaerobic culture Microbiology Timed Once for 1 Occurrences starting 10/06/2024 until 10/06/2024 [facility] Comment on above: Once for 1 Occurrences starting 10/07/19 until 10/06/2024 CBC W Auto Different ial panel - Blood [facility] CBC W Auto Different ial panel - Blood [facility] CBC W Auto Different ial panel - Blood [facility] metabo lic 1999 panel - Serum or Plasma [facility] lic 1999 panel - Serum or Plasma [facility] metabo lic 1999 panel - Serum or Plasma [facility] Cortisol [Mass/volum e] in Serum or Plasma [facility] COVID & INFLUENZA A/ B & RSV PCR, ROUTINE COVID & INFLUENZA A/B & RSV PCR, ROUTINE Microbiology Routine COPD with exacerbation (HCC) URI, acute Ordered: 09/02/2024 [facility] Work Phone: Comment on above: Ordered: 09/02/2024 CT Abdomen and Pelvi s W contrast IV [facility] Fine needle aspiration [facility] Comment on above: Release Upon Ordering for 1 Occurrences starting 10/09/2024, 1 completed Folate [Moles/volume ] in Serum or Plasma [facility] Fungus identified in Unspecified specimen by Culture [facility] Comment on above: Release Upon Ordering for 1 Occurrences starting 10/09/2024 Fungus identified in Unspecified specimen by Fungus stain [facility] Comment on above: Release Upon Ordering for 1 Occurrences starting 10/09/2024 Magnesium measurement [facility] End: 10-17-2024 MR Brain WO and W contrast IV [facility] Work Phone: Comment on above: Once for 1 Occurrences starting 10/18/19 until 10/17/2024 MR Brain WO and W contrast IV [facility] Mycobacterium sp identified in Unspecified specimen by Organism specific culture [facility] Comment on above: Release Upon Ordering for 1 Occurrences starting 10/09/2024 End: 10-06-2024 Non-gynecologic cytology Non-gynecologic cytology Pathology and Cytology Routine Once (Lab) for 1 Occurrences starting 10/06/2024 until 10/06/2024 [facility] Comment on above: Once (Lab) for 1 Occurrences starting until 10/06/2024 Non-Gynecologic Cytology [facility] [employer] Work Phone: Comment on above: Release Upon Ordering for 1 Occurrences starting 10/09/2024 Patient Education [facility] Work Phone: Patient referral [facility] Work Phone: End: 10-20-2024 PET+CT Bone from skull base to mid-thigh W [id number] IV [facility] Work Phone: Comment on above: Once for 1 Occurrences starting 10/21/19 until 10/20/2024 Serum inorganic phosphate measurement [facility] T4 free measurement [facility] Thyroid stimulating hormone measurement [facility] Tissue exam [facility] Comment on above: Release Upon Ordering for 1 Occurrences starting 10/09/2024 Troponin T.cardiac [Mass/volume] in Serum or Plasma by High sensitivity method [facility] US Heart limited [facility] [place] 6 [place] [facility] [place] Immunization Date Immunization Notes [facility] tetanus toxoid, reduced diphtheria toxoid, and acellular pertussis vaccine, adsorbed MAXINE TRIVEDI MD [facility] 07-13-2023 tetanus toxoid, reduced diphtheria toxoid, and acellular pertussis vaccine, adsorbed [facility] 06-23-2006 influenza virus vaccine, unspecified formulation Jose F Cruz APRN.[employer] Work Phone: [facility] Work Phone: 04-24-2003 influenza virus vaccine, unspecified formulation Jose F Cruz APRN.[employer]ER HEL[employer] Work Phone: [facility] Work Phone: Payers Date Payer Category Payer Private Health Insurance [id number] 2024 Medicare O [facility] MEDICARE ADVANTAGE [facility] [place]: [address] [place] [address] [id number] 2024 Self-pay [id number] 2021 Medicare ANTHEM MEDICARE ADVANTAGE [employer] [id number] 2021-Present [id number] [place] [address] Medicare HMO [id number] 2019 Medicare (Managed Care) [facility] ADVANTAGE HMO [id number] 2019 Unknown [id number] [id number]. 2.7.3.593365.315 2019 Medicare [id number] [address] [facility] [id number] 1950 Unknown [id number] 2.16.840.1.698486.3.579. 2. 1950 Unknown [id number] 2.16.840.1.565712.3.579. 2. 1950 Unknown [id number] 2.16.840.1.652474.3.579. 2. 1950 Unknown [id number] 2.16.840.1.463226.3.579. 2. 1950 Unknown [id number] 2.16.840.1.848667.3.579. 2. 1950 Unknown [id number] 2.16.840.1.556584.3.579. 2. 1950 Unknown [id number] 2.16.840.1.167451.3.579. 2. 1951 Unknown [id number] 2.16.840.1.022593.3.579. 2. 1950 Unknown [id number] 2.16.840.1.648409.3.579. 2. 1951 Unknown [id number] 2.16.840.1.495820.3.579. 2. 1950 Unknown [id number] 2.16.840.1.350497.3.579. 2. 1950 Unknown [id number] 2.16.840.1.634695.3.579. 2 1950 Unknown [id number] 2.16.840.1.663419.3.579. 2.627 1951 Unknown [id number] 2.840.1.337614.3.579. 2.627 1951 Unknown [id number] 2.840.1.880191.3.579. 2.627 1951 Unknown [id number] 2.840.1.252520.3.579. 2.627 Medicare MEDICARE PART A B [id number] Self-pay SELF PAY INSURANCE [id number] Unknown COMMERCIAL OTHER [id number] Unknown [id number] 2.840.1.815486.3.579. 2.462 Unknown [id number] 2.840.1.663679.3.579. 2.462 Unknown [id number] 2.840.1.938155.3.579. 2.462 Unknown [id number] 2.840.1.247831.3.579. 2.462 Unknown [id number] 2.840.1.980628.3.579. 2.462 Unknown [id number] 2.840.1.930666.3.579. 2.462 Unknown [id number] 2.840.1.187541.3.579. 2.462 Unknown [id number] 2.16840.1.046866.3.579. 2.462 Unknown [id number] 2.16840.1.967760.3.579. 2.462 Unknown [id number] 2.840.1.035451.3.579. 2.462 Unknown [id number] 2.840.1.943196.3.579. 2.462 Unknown [id number] 2.16.840.1.854017.3.579. 2.462 Unknown [id number] 2.16.840.1.767362.3.579. 2.462 Unknown [id number] 2.16.840.1.601843.3.579. 2.462 Unknown [id number] 2.16.840.1.272155.3.579. 2.462 Unknown [id number] 2.16.840.1.272526.3.579. 2.462 Unknown [id number] 2.16.840.1.226012.3.579. 2.462 Unknown [id number] 2.16.840.1.089315.3.579. 2.462 Unknown [id number] 2.16.840.1.070757.3.579. 2.462 Unknown [id number] 2.840.1.829500.3.579. 2.462 Unknown [id number] 2.840.1.483551.3.579. 2.462 Unknown [id number] 2.16.840.1.664894.3.579. 2.462 Unknown [id number] 2.16.840.1.794032.3.579. 2.462 Unknown [id number] 2.16.840.1.520232.3.579. 2.462 Unknown [id number] 2..840.1.926369.3.579. 2.462 Unknown [id number] 2.16.840.1.574219.3.579. 2.462 Unknown [id number] 2.16.840.1.240078.3.579. 2.462 Unknown [id number] 2.16.840.1.535852.3.579. 2.462 Unknown [id number] 2.16.840.1.502843.3.579. 2.462 Unknown [id number] 2.16.840.1.248263.3.579. 2.462 Unknown [id number] 2.16.840.1.526127.3.579. 2.462 Unknown [id number] 2.16.840.1.925705.3.579. 2.462 Unknown [id number] 2.16.840.1.345878.3.579. 2.462 Unknown [id number] 2.16.840.1.759894.3.579. 2.462 Unknown [id number] 2.16.840.1.714467.3.579. 2.462 Unknown [id number] 2.16.840.1.986233.3.579. 2.462 Unknown [id number] 2.16.840.1.267031.3.579. 2.462 Unknown [id number] 2.16.840.1.435478.3.579. 2.462 Unknown [id number] 2.16.840.1.381161.3.579. 2.462 Unknown [id number] 2.16.840.1.746873.3.579. 2.462 Unknown [id number] 2.16.840.1.932138.3.579. 2.462 Unknown [id number] 2.16.840.1.274313.3.579. 2.462 Social History Date Type Detail Facility Start: 12-12-2020 Tobacco smoking status Heavy t obacco smoker (finding) [facility] Start: 1950 Sex Assigned At Female [facility] Start: 12-20-2022 End: 03-09-2025 Tobacco smoking status NHIS Ex-smoker [facility] Start: 1971 End: 12-15-2006 History of tobacco use Current smoker [facility] Start: 1971 End: 12-15-2006 History of tobacco use Cigarette Smoker [facility] Start: 12-20-2022 End: 10-26-2024 Cigarettes smoked current (pack per day) - Reported 1 [facility] Start: 12-20-2022 End: 10-03-2024 Tobacco use and exposure Smokeless tobacco non-user [facility] Start: 12-20-2022 End: 05-31-2024 Alcohol intake Current non-drinker of alcohol (finding) [facility] Start: 1950 Sex Assigned At Not on file [facility] Start: 01-11-2023 Tobacco smoking stat us ARIS Smokes tobacco daily [facility] Start: 01-12-2023 Alcohol intake Current drinke r of alcohol (finding) [facility] Start: 01-12-2023 End: 10-26-2024 Tobacco use panel [facility] Start: 11-17-2020 End: 01-12-2023 Exposure to SARS-CoV-2 (event) Not sure [facility] Start: 07-13-2023 End: 07-13-2023 Tobacco smoking status NHIS Unknown if ever smoked [facility] Start: 04-30-2020 None [facility] Start: 04-30-2020 Alone [facility] National Score (1-10 0), lower number is lower risk Not on file [facility] Sexual Orientation Torito Viktoriya cook [facility] Start: 09-21-2019 End: 02-16-2022 Sex Female (finding) [facility] History of tobacco use Passive smoker [facility] Start: 10-03-2024 End: 10-17-2024 Alcoholic beverage intake Ex-drinker (finding) [facility] Start: 10-05-2024 Gender identity Identifies as female gender (finding) [facility] Start: 10-05-2024 Sexual orientation Heterosexual (fin tess) [facility] Medical Equipment Procedure Code Equipment Code Equipment Origin al Text Equipment Identifier Dates Insertion, vascular access port ([id number]) [id number] [facility] Start: 11-16-2024 Goals Date Patient Goal Desired Activity /State Functional Status Date Assessment Result Facility 02-14-2025 Functional status Up ad mike [facility] Work Phone: 11-24-2024 Functional Status Activity [place] 02-21-2024 Functional Status Room check performed [facility] 02-20-2024 Functional Status Ambulation in López, Ambulation in Room [facility] 02-11-2024 Functional Status Independent [facility] 02-04-2024 Functional Status Standard Safet y ID band on, Call device within reach, Bed in low position, Wheels locked, Upper/Half-Length side-rails up, Bedside Cart Locked, Safety level maintained [facility] 01-28-2024 Functional Status Independent [facility] 01-28-2024 Functional Status Standard Safet y ID band on, Call device within reach, Bed in low position, Wheels locked [facility] 05-11-2014 Are you deaf, or do you have serious difficulty hearing No 05/11/2014 1:16 PM Bushra Benjamin RN No [facility] 05-11-2014 Are you blind, or do you have serious difficulty seeing, even when wearing glasses No 05/11/2014 1:16 PM Bushra Benjamin, RYAN No [facility] 05-11-2014 Do you have serious difficulty walking or climbing stairs No 05/11/2014 1:16 PM Bushra Benjamin, RYAN [facility] 05-11-2014 Do you have difficul ty dressing or bathing No 05/11/2014 1:16 PM Bushra Benjamin, RYAN [facility] 05-11-2014 Because of a physica l, mental, or emotional condition, do you have difficulty doing errands alone such as visiting a physician's office or shopping No 05/11/2014 1:16 PM Bushra Benjamin RN No [facility] Mental Status Date Assessment Result Facility 02-14-2025 Cognitive function Voice/Name [facility] Work Phone: 01-28-2025 Cognitive function Voice/Name [facility] Work Phone: 11-24-2024 Mental Status Orientation Oriented x 4 [facility] 11-16-2024 Cognitive function Voice/Name [facility] Work Phone: 02-21-2024 Mental Status Oriented x 4 [facility] 02-20-2024 Mental Status Oriented x 4 [facility] 02-11-2024 Mental Status Oriented x 4 [facility] 01-28-2024 Mental Status Orientation Oriented x 4 [facility] 01-28-2024 Mental Status [facility] 05-11-2014 Because of a physica l, mental, or emotional condition, do you have serious difficulty concentrating, remembering, or making decisions No 05/11/2014 1:16 PM EDT Bushra Koenig RN No [facility] Clinical Notes 12-17-2020 to 02-14-2025 Note Date & Type Note Facility 02-14-2025 Discharge summary Note Date/Time February 14, 2025 11:54[facility] Medical Records Department [address] [place] [address] Instructions for Home/Discharge Instructions 02/14/25 1153 MR#: [id number] Acct: [id number] Name: KARINA FERNANDO Rep #:[id number] : 1950 74 From: Delia Mcqueen MD PCP: TORIBIO CASTILLO Status:ADM IN Discharge Instructions DC O2, CPAP, BIPAP needs Home O2 Discharge instructions: No Dressing / Incision Discharge Activity: Return to Normal Activity Weight Bearing Status: Weight bearing as tolerated Dressing / Incision Call your doctor if you observe: Fever of 101 or Higher, Shortness of breath, Dizziness, Swelling in the ankles and Chest pain Follow Up Care Test Results: Test results from this visit will be discussed in further detail at your follow-up appointment, if applicable. Discharge Plan Admission Admit Date/Time: 02/11/25 18:01 Primary Reason for Your Visit: small bowel obstruction due to constipation Attending Provider: Delia Mcqueen Primary Care Provider: JOSELIN MAURER Consulting Providers: Cristin Boyce; Ami Magdaleno Instructions Additional Instructions / Restrictions: Recommend below diet for 2 weeks: What are low-fiber foods? If your doctor tells you to follow a low-fiber diet, here are low-fiber foods you can eat and higher-fiber foods you should avoid. Remember to always choose foods that you would normally eat. Do not try any foods that caused you discomfort or allergic reactions in the past. If you are on a ?low-residue diet,? your food choices are even more restricted than those listed below. Talk with your cancer care team or dietitian if you have questions about certainfoods or amounts. Meat, fish, poultry, and protein Eat: Tender cuts of meat Ground meat Tofu Fish and shellfish Smooth peanut butter Eggs Bake, broil, or poach meats, and use mild seasonings. Try preparing meats as stews, roasts, meatloaves, casseroles, sandwiches, and soups using ingredients on the approved lists. Scramble, poach, or boil eggs; or make omelets, souffl?s, custard, puddings, andcasseroles, using ingredients noted below. You might want to ask your doctor, nurse, or dietitian about other foods may be OK for you to eat, and find out when you can go back to your normal diet. Avoid: All beans, nuts, peas, lentils, and legumes Processed meats, hot dogs, sausage, and cold cuts Tough meats with gristle Dairy: Milk and cheese Eat: Only in small to medium amounts and only if they don?t cause problems for you Milk, chocolate milk, buttermilk, and milk drinks Yogurt without seeds or granola Sour cream Cheese Cottage cheese Custard or pudding Ice cream or frozen desserts (without nuts) Cream sauces, soups, and casseroles You can use these items in desserts, snacks, or breads. Bread, cereals, and grains Eat: White breads, waffles, [place] toast, plain white rolls, or white bread toast Pretzels Plain pasta or noodles White rice Crackers, zwieback, thien, and matzoh (no cracked wheat or whole grains) Cereals without whole grains, added fiber, seeds, raisins, or other dried fruit Use white flour for baking and making sauces. Grains, such as white rice, Cream of Wheat, or grits, should be well-cooked. Include the above grains in casseroles, dumplings, souffl?s, cheese strata, kugels, and pudding. Avoid any food that contains: Brown or wild rice Whole grains, cracked grains, or whole wheat products Kasha (buckwheat) Cornbread or cornmeal Wyatt crackers Bran Wheat germ Nuts Granola Coconut Dried fruit Seeds Vegetables and potatoes Eat: Tender, well-cooked fresh or canned vegetables without seeds, stems, or skins Cooked sweet or white potatoes without skins Strained vegetable juices without pulp or spices You can also eat these with cream sauces, or in soups, souffl?s, kugels, and casseroles. Avoid: All raw or steamed vegetables All types of beans Potatoes with skin Peas [place] Cabbage, broccoli, cauliflower, [place] sprouts, and greens Sauerkraut Onions Fruits and desserts Eat: Soft canned or cooked fruit without seeds or skins (small amounts) Small amounts of well-ripened banana Strained or clear juices Small amounts of soft cantaloupe or honeydew melon Cookies and other desserts without whole grains, dried fruit, berries, nuts, or coconut Sherbet and popsicles Serving suggestions include gelatins, milk shakes, frozen desserts, puddings, tapioca, cakes, and sauces. Avoid: All raw or dried fruits Berries Prune juice, prunes, and raisins Other foods Eat: Mayonnaise and mild salad dressings Margarine, butter, cream, and oils in small amounts Plain gravies Plain bouillon and broth Ketchup and mild mustard Spices, cooked herbs, and salt Sugar, honey, and syrup Clear jellies Hard candy and marshmallows Plain chocolate Avoid: Marmalade Pickles, olives, relish, and horseradish Popcorn Potato chips Liquids Keep in mind that low-fiber foods cause fewer bowel movements and smaller stools. You may need to drink extra fluids to help prevent constipation while you are on a low-fiber diet. Drink plenty of water unless your doctor tells you otherwise, and use juices and milk as noted above. Discharge Orders/Prescriptions Prescriptions: New oxycodone 10 mg tablet 10 mg PO BID PRN (Reason: pain) 5 Days Qty: 10 0RF Continued multivitamin Tablet 1 tab PO QAM albuterol [...] port access) 30 Days Qty: 30 2RF pantoprazole 40 mg tablet,delayed release (DR/EC) 40 mg PO QDAY docusate sodium [Dulcolax Stool Softener (dss)] 100 mg capsule 200 mg PO QDAY ferrous sulfate 325 mg (65 mg iron) tablet,delayed release (DR/EC) 325 mg PO QDAY valacyclovir 500 mg tablet 500 mg PO QDAY PRN (Reason: shingles) albuterol sulfate 1 INHALER inhaler 1 - 2 puff inhalation Q4H PRN PRN (Reason: Sob &/Or Wheezing) loratadine 10 MG tablet 10 mg PO DAILY buspirone 10 mg tablet 10 mg PO TID PRN (Reason: anxiety) durvalumab 50 mg/mL solution IV Q14D zinc citrate, zinc oxide 50 mg tablet 50 mg PO DAILY cyanocobalamin (vitamin B-12) 50 mcg tablet 50 mcg PO DAILY famotidine 10 mg tablet 10 mg PO BID potassium chloride 20 mEq tablet,ER particles/crystals 20 meq PO DAILY furosemide 20 mg tablet 20 mg PO DAILY PRN (Reason: swelling) budesonide-formoterol 80-4.5 mcg/actuation HFA aerosol inhaler 2 inh INHALATION .x4 Patient Comments: [NO ORIGINAL SIG] Rx Instructions: 2 puffs in morning, 2 puffs at night trazodone 100 mg tablet 100 mg PO QHS Discontinued oxycodone 10 mg tablet 10 mg PO BID PRN (Reason: pain) Referrals / Follow Up: Cristin Boyce MD [Med Staff - Active Staff] - Within 1 Week JOSELIN MAURER CRNP [Primary Care Provider] - Within 1 Week Disposition Disposition (needs filled in before D/C Order can be placed): Home, Self Care 02/14/25 1154<Electronically signed by Delia Mcqueen MD>Delia Mcqueen MD CC: Dr. Ami Magdaleno MD; Dr. Cristin Boyce MD; TORIBIO CASTILLO ~ Signed [facility] Work Phone: 1(521) 422-291207-30-2025 Discharge summary Author [facility] Note Date/Time February 14, 2025 2:20 pm [facility] Medical Records Department [address] [place] [address] Discharge Summary 02/14/25 1154 MR#: [id number] Acct: [id number] Name: KARINA FERNANDO Rep #:[id number] : 1950 74 From: Delia Mcqueen MD PCP: TORIBIO CASTILLO Status:ADM IN Location: [place] [address] Providers Date of Admission: 02/11/25 Date of Discharge: 02/14/25 Primary Care Physician: TORIBIO CASTILLO Consultations 02/11/25 19:48 Consult: General Surgery Routine Consulting Provider: Cristin Boyce Reason for Consult: Small bowel obstruction EMERGENT Consult: No MD Notified: Yes Date Notified: 02/11/25 Time Notified: 18:26 Method of Notification: ED Physician Initiated Reason For Visit: SMALL BOWEL OBSTRUCTION Diagnosis Discharge Diagnosis (1) Lung cancer: Status: Acute Code(s): C34.90 - Malignant neoplasm of unspecified part of unspecified bronchus or lung Plan #Small bowel obstruction due to severe constipation * has a history of metastatic small cell cancer. Admitted with a complaint of abdominal pain as well as CT abdomen/pelvis suggestive of persistent small bowel obstruction. * had enemas and had resutant bowel movements * says abdominal pain has improved. Nausea has also resolved and she feels much better today * general surgery on board * IV zofran and compazine for nausea * has been started on clear liquid diet per general surgery. * #Hypokelamia: resolved #Hyperkalemia: patient now hyperkalemic today with potassium of 5.9. 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 * was on systemic chemotherapy and immunotherapy with carboplatin, etoposide as well as durvalumab. * now on immunotherapy * continue with oncology on outpatient basis. * #History of COPD: not in exacerbation. Breathing treatment with bronchodilators. #Abnormal urinalysis: Urinalysis showed 2+ bacteria. Has no urinary symptoms. Urine culture still pending #Depression and anxiety: resume meds as she has been started on clear liquid diet. #GERD: on PPI. DVt prophylaxis; SCDs. Medications at Discharge Home Medications albuterol sulfate 90 mcg/actuation aerosol inhaler 1 - 2 puff inhalation Q4H PRNPRN Sob &/Or Wheezing 08/24/19 loratadine 10 mg tablet 10 mg PO DAILY allergy 08/24/19 multivitamin 1 tab PO QAM supplement 09/18/24 albuterol sulfate 2.5 mg/3 mL (0.083 %) solution for nebulization 2.5 mg inhalation PRN PRN shortness of breath or wheezing 09/22/24 lidocaine-prilocaine 2.5 %-2.5 % topical cream 1 applic topical ONCE PRN port access 30 days #30 grams 10/26/24 ondansetron 8 mg disintegrating tablet 8 mg PO Q8H PRN nausea and vomiting #30 tabs 10/26/24 prochlorperazine maleate 10 mg tablet 10 mg PO Q6H PRN nausea and vomiting #30 tabs 10/26/24 budesonide-formoterol HFA 80 mcg-4.5 mcg/actuation aerosol inhaler 2 inh inhalation .x4 sob 11/09/24 buspirone 10 mg tablet 10 mg PO TID PRN anxiety 11/13/24 pantoprazole 40 mg tablet,delayed release 40 mg PO QDAY gerd 11/13/24 docusate sodium 100 mg capsule (Dulcolax Stool Softener (docusate)) 200 mg PO QDAY constipation 11/17/24 ferrous sulfate 325 mg (65 mg iron) tablet,delayed release 325 mg PO QDAY supplement 11/17/24 trazodone 100 mg tablet 100 mg PO QHS sleep 11/17/24 valacyclovir 500 mg tablet 500 mg PO QDAY PRN shingles 11/17/24 cyanocobalamin (vitamin B-12) 50 mcg tablet 50 mcg PO DAILY 02/11/25 durvalumab 50 mg/mL intravenous solution IV Q14D 02/11/25 famotidine 10 mg tablet 10 mg PO BID gerd 02/11/25 furosemide 20 mg tablet 20 mg PO DAILY PRN swelling 02/11/25 potassium chloride 20 mEq tablet,extended release(part/cryst) 20 meq PO DAILY sepplement 02/11/25 zinc citrate, zinc oxide 50 mg tablet 50 mg PO DAILY supplement 02/11/25 oxycodone-acetaminophen 5 mg-325 mg tablet 1 tab PO Q6H PRN pain 2 days #8 tabs 02/14/25 Hospital Course Operations None Procedures None Summary of Care Provided Minutes Spent on Discharge: 42 Hospital Course: Patient is a 74-year-old female with a past medical history as outlined including history of small cell lung cancer with mets to the adrenal gland was admitted to the ED on 02/11/2025 with plaint of nausea, vomiting and abdominal pain as well as bloating due to severe constipation. The symptoms started about2 weeks prior. She was on oxycodone long-term for pain. She had had to disimpact herself a few days prior to admission but started having abdominal pain and distention again so she came into the ED. On admission CT of the abdomen and pelvis showed persistent small bowel obstruction. General surgery was consulted and was recommended that she have an NG tube inserted as well as to have enemas. She did have the enemas which help with bowel movements and theobstruction was subsequently resolved. She was started on clear liquid diet which she tolerated and was eventually advanced to transitional diet by general surgery. She was counseled to remain on the soft transitional diet for the nextmonth. She felt much better and her pain improved. She was therefore discharged home on 02/14/2025. She is to follow-up with her primary care doctor within 1 to 2 weeks and also to follow-up with general surgery as well as her pain management doctor. Patient was on oxycodone 10 mg twice daily at home but said she did not want to take it because that had caused her constipation. Her oxycodone prescription was therefore canceled and she was discharged home at herrequest on p.o. Percocet 5 325 mg tablets 1 every 6 hours as needed for total of8 tablets for 2 days. She is due to follow-up with her pain management doctor tomorrow 02/15/2025. Of note OARRS score was checked as she did have a prescription for 30-day supply of oxycodone 10 mg twice daily as needed given on01/20/2025. Labs and vitals reviewed. Medication reviewed and reconciled. Patient seen and examined prior to discharge. She felt much better and had no active complaints. Review of systems otherwise negative. Labs and vitals reviewed. Home medication reviewed and reconciled. Physical Exam Const alert and oriented x3 Constitutional Narrative: frail and weak General Appearance: cooperative and comfortable HEENT normocephalic, head/scalp atraumatic and oropharynx normal Mouth: oral and palatal mucosa normal Eyes PERRL and EOMs intact bilaterally Neck no lymphadenopathy and supple Lymph Lymphatic: no lymphadenopathy noted Resp normal respiratory effort, normal air movement and clear to auscultation bilaterally Cardio regular rate, regular rhythm, S1 normal heart sound, S2 normal heart sound and no murmurs GI normal to inspection, nondistended, normoactive bowel sounds, soft to palpation,non-tender and non-distended Extremity normal to inspection, full ROM, normal capillary refill and no clubbing, cyanosis or edema General Extremity: no tenderness to palpation of joints or extremities Skin no rashes or lesions noted General Skin Exam: no breakdown Neuro oriented x3, CN's II-XII intact bilaterally, moves all extremities, no focal motor deficits, no sensory deficits noted and deep tendon reflexes 2+ bilaterally Sensorium / Orientation: awake and alert Motor Exam: general weakness Psych thought process normal Appearance: appropriate Weight / BMI Weight Weight: 140 lb 10.479 oz Body Mass Index (BMI) 24.9 ABG / Lab / Microbiology Data 02/14/25 06:16 02/14/25 06:16 Laboratory: Laboratory Results - last 24 hr 02/14/25 06:16: WBC 4.3 L, RBC 3.46 L, Hgb 10.7 L, Hct 34.2 L, MCV 98.8, MCH 30.9, MCHC 31.3 L, RDW Std Deviation 59.4 H, RDW Coeff of Juan David 16.4 H, Plt Count 163, MPV 8.5, Immature Gran % (Auto) 0.500, Neut % (Auto) 58.4, Lymph % (Auto) 25.1, Green % (Auto) 14.8 H, Eos % (Auto) 0.7, Baso % (Auto) 0.5, Absolute Neuts (auto) 2.5, Absolute Lymphs (auto) 1.07, Nucleated RBC % 0, Sodium 139, Potassium 3.9, Chloride 111 H, Carbon Dioxide 20.9 L, Anion Gap 7, BUN 5, Creatinine 0.80, Estim Creat Clear Calc 56.32, Est GFR (MDRD) Non-Af 78, BUN/Creatinine Ratio 6.3 L, Glucose 92, Calcium 8.0 Microbiology: Microbiology 02/12/25 10:10 Urine, Clean Catch Urine Culture - Final Mixed Gram Pos & Gram Neg Org D/C Instructions Discharge Activity: Return to Normal Activity Weight Bearing Status: Weight bearing as tolerated Call your doctor if you observe: Fever of 101 or Higher, Shortness of breath, Dizziness, Swelling in the ankles and Chest pain DC O2, CPAP, BIPAP Needs Home O2 Discharge instructions: No DC home with Oxygen: No Meaningful Use Info Meaningful Use Meaningful Use Diagnoses (Choose all that apply): None applicable Discharge Plan Admission Admit Date/Time: 02/11/25 18:01 Primary Reason for Your Visit: small bowel obstruction due to constipation Attending Provider: Delia Mcqueen Primary Care Provider: JOSELIN MAURER Consulting Providers: Cristin Boyce; Ami Magdaleno Instructions Additional Instructions / Restrictions: Recommend below diet for 2 weeks: What are low-fiber foods? If your doctor tells you to follow a low-fiber diet, here are low-fiber foods you can eat and higher-fiber foods you should avoid. Remember to always choose foods that you would normally eat. Do not try any foods that caused you discomfort or allergic reactions in the past. If you are on a ?low-residue diet,? your food choices are even more restricted than those listed below. Talk with your cancer care team or dietitian if you have questions about certainfoods or amounts. Meat, fish, poultry, and protein Eat: Tender cuts of meat Ground meat Tofu Fish and shellfish Smooth peanut butter Eggs Bake, broil, or poach meats, and use mild seasonings. Try preparing meats as stews, roasts, meatloaves, casseroles, sandwiches, and soups using ingredients on the approved lists. Scramble, poach, or boil eggs; or make omelets, souffl?s, custard, puddings, andcasseroles, using ingredients noted below. You might want to ask your doctor, nurse, or dietitian about other foods may be OK for you to eat, and find out when you can go back to your normal diet. Avoid: All beans, nuts, peas, lentils, and legumes Processed meats, hot dogs, sausage, and cold cuts Tough meats with gristle Dairy: Milk and cheese Eat: Only in small to medium amounts and only if they don?t cause problems for you Milk, chocolate milk, buttermilk, and milk drinks Yogurt without seeds or granola Sour cream Cheese Cottage cheese Custard or pudding Ice cream or frozen desserts (without nuts) Cream sauces, soups, and casseroles You can use these items in desserts, snacks, or breads. Bread, cereals, and grains Eat: White breads, waffles, [place] toast, plain white rolls, or white bread toast Pretzels Plain pasta or noodles White rice Crackers, zwieback, thien, and matzoh (no cracked wheat or whole grains) Cereals without whole grains, added fiber, seeds, raisins, or other dried fruit Use white flour for baking and making sauces. Grains, such as white rice, Cream of Wheat, or grits, should be well-cooked. Include the above grains in casseroles, dumplings, souffl?s, cheese strata, kugels, and pudding. Avoid any food that contains: Brown or wild rice Whole grains, cracked grains, or whole wheat products Kasha (buckwheat) Cornbread or cornmeal Wyatt crackers Bran Wheat germ Nuts Granola Coconut Dried fruit Seeds Vegetables and potatoes Eat: Tender, well-cooked fresh or canned vegetables without seeds, stems, or skins Cooked sweet or white potatoes without skins Strained vegetable juices without pulp or spices You can also eat these with cream sauces, or in soups, souffl?s, kugels, and casseroles. Avoid: All raw or steamed vegetables All types of beans Potatoes with skin Peas [place] Cabbage, broccoli, cauliflower, [place] sprouts, and greens Sauerkraut Onions Fruits and desserts Eat: Soft canned or cooked fruit without seeds or skins (small amounts) Small amounts of well-ripened banana Strained or clear juices Small amounts of soft cantaloupe or honeydew melon Cookies and other desserts without whole grains, dried fruit, berries, nuts, or coconut Sherbet and popsicles Serving suggestions include gelatins, milk shakes, frozen desserts, puddings, tapioca, cakes, and sauces. Avoid: All raw or dried fruits Berries Prune juice, prunes, and raisins Other foods Eat: Mayonnaise and mild salad dressings Margarine, butter, cream, and oils in small amounts Plain gravies Plain bouillon and broth Ketchup and mild mustard Spices, cooked herbs, and salt Sugar, honey, and syrup Clear jellies Hard candy and marshmallows Plain chocolate Avoid: Marmalade Pickles, olives, relish, and horseradish Popcorn Potato chips Liquids Keep in mind that low-fiber foods cause fewer bowel movements and smaller stools. You may need to drink extra fluids to help prevent constipation while you are on a low-fiber diet. Drink plenty of water unless your doctor tells you otherwise, and use juices and milk as noted above. Discharge Orders/Prescriptions Prescriptions: New oxycodone-acetaminophen 5-325 mg tablet 1 tab PO Q6H PRN (Reason: pain) 2 Days Qty: 8 0RF Continued multivitamin Tablet 1 tab PO QAM albuterol [...] port access) 30 Days Qty: 30 2RF pantoprazole 40 mg tablet,delayed release (DR/EC) 40 mg PO QDAY docusate sodium [Dulcolax Stool Softener (dss)] 100 mg capsule 200 mg PO QDAY ferrous sulfate 325 mg (65 mg iron) tablet,delayed release (DR/EC) 325 mg PO QDAY valacyclovir 500 mg tablet 500 mg PO QDAY PRN (Reason: shingles) albuterol sulfate 1 INHALER inhaler 1 - 2 puff inhalation Q4H PRN PRN (Reason: Sob &/Or Wheezing) loratadine 10 MG tablet 10 mg PO DAILY buspirone 10 mg tablet 10 mg PO TID PRN (Reason: anxiety) durvalumab 50 mg/mL solution IV Q14D zinc citrate, zinc oxide 50 mg tablet 50 mg PO DAILY cyanocobalamin (vitamin B-12) 50 mcg tablet 50 mcg PO DAILY famotidine 10 mg tablet 10 mg PO BID potassium chloride 20 mEq tablet,ER particles/crystals 20 meq PO DAILY furosemide 20 mg tablet 20 mg PO DAILY PRN (Reason: swelling) budesonide-formoterol 80-4.5 mcg/actuation HFA aerosol inhaler 2 inh INHALATION .x4 Patient Comments: [NO ORIGINAL SIG] Rx Instructions: 2 puffs in morning, 2 puffs at night trazodone 100 mg tablet 100 mg PO QHS Discontinued oxycodone 10 mg tablet 10 mg PO BID PRN (Reason: pain) Referrals / Follow Up: Cristin Boyce MD [Med Staff - Active Staff] - Within 1 Week JOSELIN MAURER CRNP [Primary Care Provider] - Within 1 Week Disposition Disposition (needs filled in before D/C Order can be placed): Home, Self Care Charges/Coding Visit Charges Inpatient E&M: 93675 Disch Hosp >30min 02/14/25 1420 <Electronically signed by Delia Mcqueen MD> Cosigner Signature (if applicable): CC: Dr. Delia Mcqueen MD; TORIBIO CASTILLO~ Signed [facility] Work Phone: 1(545) 278-919507-30-2025 [facility]07-30-2025 Progress note Author Heena Courtney [facility] Note Date/Time February 14, 2025 8:05 am [facility] Medical Records Department [address] [place] [address] Progress Note - Surgery 02/14/25714 MR#: [id number] Acct: [id number] Name: KARINA FERNANDO Rep #:[id number] : 1950 74 From: Heena VANCE PA-C PCP: TORIBIO CASTILLO Status:ADM IN Location: [facility] [id number] Subjective Subjective Patient evaluated resting comfortably in bed. She notes single episode of nausea, however no vomiting. She denies any abdominal pain. She continues to note bowel movements. She states she had 17 bowel movements again yesterday. Objective Data Objective Data Vital Signs: Vital Signs Temp Pulse Resp BP Pulse Ox O2 Del Method O2 Flow Rate 97.9 F 96 18 114/65 97 Room Air 3 02/14/25 06:51 02/14/25 06:51 02/14/25 06:51 02/14/25 06:51 02/14/25 06:51 02/14/25 06:51 02/13/25 09:00 Oxygen Flow Rate (L/min) 3 Oxygen Delivery Method Room Air Weight: 140 lb 10.479 oz Body Mass Index (BMI) 24.9 Intake & Output: Intake and Output for Last 24 Hours 02/12/25 02/13/25 02/14/25 23:59 23:59 23:59 Intake Total 4975 / 4975 4737.5 / 4737.5 1822.5 / 1822.5 Output Total 3400 / 3400 1000 / 1000 Balance 1575 / 1575 3737.5 / 3737.5 1822.5 / 1822.5 Lab / Micro Data 02/14/25 06:16 02/14/25 06:16 Labs: Laboratory Results - last 24 hr 02/14/25 06:16: WBC 4.3 L, RBC 3.46 L, Hgb 10.7 L, Hct 34.2 L, MCV 98.8, MCH 30.9, MCHC 31.3 L, RDW Std Deviation 59.4 H, RDW Coeff of Juan David 16.4 H, Plt Count 163, MPV 8.5, Immature Gran % (Auto) 0.500, Neut % (Auto) 58.4, Lymph % (Auto) 25.1, Green % (Auto) 14.8 H, Eos % (Auto) 0.7, Baso % (Auto) 0.5, Absolute Neuts (auto) 2.5, Absolute Lymphs (auto) 1.07, Nucleated RBC % 0, Sodium 139, Potassium 3.9, Chloride 111 H, Carbon Dioxide 20.9 L, Anion Gap 7, BUN 5, Creatinine 0.80, Estim Creat Clear Calc 56.32, Est GFR (MDRD) Non-Af 78, BUN/Creatinine Ratio 6.3 L, Glucose 92, Calcium 8.0 Radiography Diagnostic Testing: Radiology Impression Small Bowel X-Ray 02/12/25 09:30 IMPRESSION: Again seen are a few moderately dilated small bowel loops, predominantly in the central to left abdomen. In the 11 hour film, contrast does extend into the cecum. The 20.5 hour film demonstrates contrast within the descending and sigmoid colon. Findings consistent with partial small bowel obstruction. Reading Location: [facility]--1 Physical Exam GI GI Narrative: Abdomen- soft, benign Assessment & Plan Assessment/Plan (1) Abdominal pain: QUALIFIERS: Abdominal location: generalized Qualified Code(s): R10.84 - Generalized abdominal pain PLAN: I am following this patient in conjunction with Dr. Boyce. She will independently evaluate this patient. Labs reviewed. Potassium returned to normal. Increased diet to transitional diet If patient tolerates diet, she is able to be discharged from a surgical standpoint Charges/Coding Visit Charges Inpatient E&M: 26065 Subs Hosp L2 02/14/25 0805 <Electronically signed by Heena VANCE PA-C> Cosigner Signature (if applicable): CC: ~ Signed [facility] Work Phone: [phone]) 809-174107-29-2025 Progress note Author Delia Mcqueen [facility] Note Date/Time February 13, 2025 4:[address] [facility] Medical Records Department [address] [place] [address] Progress Note 02/13/25 1032 MR#: [id number] Acct: [id number] Name: KARINA FERNANDO Rep #:[id number] : 1950 74 From: Delia Mcqueen MD PCP: TORIBIO CASTILLO Status:ADM IN Location: MS3 [id number] Subjective Subjective Patient seen and examined. Her daughter was by her bedside. She said she felt much better today. She denied any shortness of breath, nausea, vomiting or abdominal pain. She says her diarrhea is also improving. Review of systems is otherwise negative. Potassium today is 2.9 Objective Data Objective Data Vital Signs: Vital Signs Temp Pulse Resp BP Pulse Ox O2 Del Method O2 Flow Rate 98.9 F 82 16 136/84 H 98 Nasal Cannula 3 02/13/25 08:00 02/13/25 08:00 02/13/25 08:00 02/13/25 08:00 02/13/25 08:00 02/13/25 08:00 02/13/25 08:00 Oxygen Flow Rate (L/min) 3 Oxygen Delivery Method Nasal Cannula Weight: 140 lb 10.479 oz Body Mass Index (BMI) 24.9 Intake & Output: Intake and Output for Last 24 Hours 02/11/25 02/12/25 02/13/25 23:59 23:59 23:59 Intake Total 1999 4975 / 4975 2187.5 / 2187.5 Output Total 3400 / 3400 Balance 1999 1575 / 1575 2187.5 / 2187.5 Lab / Micro Data 02/13/25 04:56 02/13/25 04:56 Labs: Laboratory Results - last 24 hr 02/13/25 04:56: WBC 5.8, RBC 3.35 L, Hgb 10.2 L, Hct 33.5 L, MCV 100.0 H, MCH 30.4, MCHC 30.4 L D, RDW Std Deviation 63.8 H, RDW Coeff of Juan David 17.2 H, Plt Count 180, MPV 9.0, Immature Gran % (Auto) 0.500, Neut % (Auto) 70.8 H, Lymph % (Auto) 17.6 L, Green % (Auto) 10.3 H, Eos % (Auto) 0.3, Baso % (Auto) 0.5, Absolute Neuts (auto) 4.1, Absolute Lymphs (auto) 1.02, Nucleated RBC % 0, Sodium 140, Potassium 5.9 H, Chloride 116 H, Carbon Dioxide 17.7 L, Anion Gap 7,BUN 10, Creatinine 0.73, Estim Creat Clear Calc 56.32, Est GFR (MDRD) Non-Af 86,BUN/Creatinine Ratio 13.1, Glucose 84, Calcium 7.9 Radiography Diagnostic Testing: Radiology Impression Small Bowel X-Ray 02/12/25 09:30 IMPRESSION: Again seen are a few moderately dilated small bowel loops, predominantly in the central to left abdomen. In the 11 hour film, contrast does extend into the cecum. The 20.5 hour film demonstrates contrast within the descending and sigmoid colon. Findings consistent with partial small bowel obstruction. Reading Location: [place] [address] Physical Exam Const alert and oriented x3 Constitutional Narrative: frail and weak General Appearance: cooperative HEENT normocephalic, head/scalp atraumatic and oropharynx normal Eyes PERRL and EOMs intact bilaterally Neck no lymphadenopathy and supple Lymph Lymphatic: no lymphadenopathy noted Resp normal respiratory effort, normal air movement and clear to auscultation bilaterally Cardio regular rate, regular rhythm, S1 normal heart sound, S2 normal heart sound and no murmurs GI normal to inspection, nondistended, normoactive bowel sounds, soft to palpation,non-tender and non-distended Extremity normal capillary refill and no clubbing, cyanosis or edema General Extremity: no tenderness to palpation of joints or extremities Skin General Skin Exam: no breakdown Neuro CN's II-XII intact bilaterally, no focal motor deficits, no sensory deficits noted and deep tendon reflexes 2+ bilaterally Motor Exam: general weakness Psych thought process normal Appearance: appropriate Assessment & Plan Assessment/Plan (1) Partial small bowel obstruction: (2) Abdominal pain: (3) Hypokalemia: (4) Delayed surgical wound healing: PLAN: Plan #Small bowel obstruction due to severe constipation * has a history of metastatic small cell cancer. Admitted with a complaint of abdominal pain as well as CT abdomen/pelvis suggestive of persistent small bowel obstruction. * had enemas and had resutant bowel movements * says abdominal pain has improved. Nausea has also resolved and she feels much better today * general surgery on board * IV zofran and compazine for nausea * has been started on clear liquid diet per general surgery. * #Hypokelamia: resolved #Hyperkalemia: patient now hyperkalemic today with potassium of 5.9. 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 * was on systemic chemotherapy and immunotherapy with carboplatin, etoposide as well as durvalumab. * now on immunotherapy * continue with oncology on outpatient basis. * #History of COPD: not in exacerbation. Breathing treatment with bronchodilators. #Abnormal urinalysis: Urinalysis showed 2+ bacteria. Has no urinary symptoms. Urine culture still pending #Depression and anxiety: resume meds as she has been started on clear liquid diet. #GERD: on PPI. DVt prophylaxis; SCDs. Charges/Coding Visit Charges Inpatient E&M: 36227 Subs Hosp L2 02/13/25 1641 <Electronically signed by Delia Mcqueen MD> Delia Mcqueen MD Cosigner Signature (if applicable): CC: ~ Signed [facility] Work Phone: [phone]) 770-626807-29-2025 Progress note Author Heena Courtney [facility] Note Date/Time February 13, 2025 10:1 4am [facility] Medical Records Department [address] [place] [address] Progress Note - Surgery 02/13/25 0648 MR#: [id number] Acct: [id number] Name: KARINA FERNANDO Rep #:[id number] : 1950 74 From: Heena VANCE PA-C PCP: TORIBIO CASTILLO Status:ADM IN Location: MS3 [id number] Subjective Subjective Patient evaluated resting comfortably in bed. She notes feeling much improved this morning. She denies any nausea, vomiting over night. She notes upwards of 17 bowel movements with most being loose, however some with solid component to them. She denies any abdominal pain this morning. She is passing flatus. She notes bowel movements started yesterday following the enema. She is feeling hungry this morning. Objective Data Objective Data Vital Signs: Vital Signs Temp Pulse Resp BP Pulse Ox O2 Del Method O2 Flow Rate 98 F 82 18 134/86 H 100 Nasal Cannula 3 02/13/25 01:58 02/13/25 01:58 02/13/25 01:58 02/13/25 01:58 02/13/25 01:58 02/13/25 02:04 02/13/25 02:04 Oxygen Flow Rate (L/min) 3 Oxygen Delivery Method Nasal Cannula Weight: 140 lb 10.479 oz Body Mass Index (BMI) 24.9 Intake & Output: Intake and Output for Last 24 Hours 02/11/25 02/12/25 02/13/25 23:59 23:59 23:59 Intake Total 1999 4975 / 4975 2087.5 / 2087.5 Output Total 3400 / 3400 Balance 1999 1575 / 1575 2087.5 / 208.5 Lab / Micro Data 02/13/25 04:56 02/13/25 04:56 Labs: Laboratory Results - last 24 hr 02/12/25 06:19: Sodium 142, Potassium 4.9, Chloride 111 H, Carbon Dioxide 24.1, Anion Gap 7, BUN 13, Creatinine 0.87, Estim Creat Clear Calc 51.79, Est GFR (MDRD) Non-Af 71, BUN/Creatinine Ratio 15.5, Glucose 94, Calcium 7.7, TSH 0.632 02/13/25 04:56: WBC 5.8, RBC 3.35 L, Hgb 10.2 L, Hct 33.5 L, MCV 100.0 H, MCH 30.4, MCHC 30.4 L D, RDW Std Deviation 63.8 H, RDW Coeff of Juan David 17.2 H, Plt Count 180, MPV 9.0, Immature Gran % (Auto) 0.500, Neut % (Auto) 70.8 H, Lymph % (Auto) 17.6 L, Green % (Auto) 10.3 H, Eos % (Auto) 0.3, Baso % (Auto) 0.5, Absolute Neuts (auto) 4.1, Absolute Lymphs (auto) 1.02, Nucleated RBC % 0, Sodium 140, Potassium 5.9 H, Chloride 116 H, Carbon Dioxide 17.7 L, Anion Gap 7,BUN 10, Creatinine 0.73, Estim Creat Clear Calc 56.32, Est GFR (MDRD) Non-Af 86,BUN/Creatinine Ratio 13.1, Glucose 84, Calcium 7.9 Physical Exam Const alert, oriented x3 and no apparent distress GI GI Narrative: Abdomen- soft, nontender. Positive bowel sounds Assessment & Plan Assessment/Plan (1) Abdominal pain: (2) Partial small bowel obstruction: PLAN: Plan I am following this patient in conjunction with Dr. Boyce. Labs reviewed. Potassium elevated. IV fluids changed Increase diet to clear liquids and advance slowly as tolerated SBFT completed yesterday with contrast in the colon. Findings are keeping with asmall bowel obstruction, however patient's examination is not correlating with the images If patient tolerates her diet, she may be discharged from a surgical standpoint I did discuss with the patient that she will need to stay on a soft food diet for 2 weeks from discharge. Avoiding tough meats and raw veggies especially during that time No follow-up needed with our office We will continue to monitor this patient as long as she is hospitalized Charges/Coding Visit Charges Inpatient E&M: 21755 Subs Hosp L2 02/13/25 1014 <Electronically signed by Heena VANCE PA-C> Cosigner Signature (if applicable): CC: ~ Signed [facility] Work Phone: [phone] 630-894707-29-2025 Radiology Diagnostic study [facility]07-28-2025 Progress note Author Delia Mcqueen [facility] Note Date/Time February 12, 2025 2:19 pm [facility] Medical Records Department [address] [place] [address] Progress Note 02/12/25 1259 MR#: [id number] Acct: [id number] Name: KARINA FERNANDO Hans Rep #:[id number] : 1950 74 From: Delia Mcqueen MD PCP: TORIBIO CASTILLO Status:ADM IN Location: [place] [address]-1 Subjective Subjective Patient seen and examined. She was admitted with a complaint of abdominal pain with nausea vomiting due to severe constipation. She was given an enema yesterday and says she had 2 large bowel movements. She did complain of some nausea again subsequently today. Abdominal pain is improving. Review of systems otherwise negative. She has remained hemodynamically stable. Objective Data Objective Data Vital Signs: Vital Signs Temp Pulse Resp BP Pulse Ox O2 Del Method O2 Flow Rate 98.2 F 95 18 103/69 95 Room Air 3 02/12/25 09:03 02/12/25 09:03 02/12/25 09:03 02/12/25 09:03 02/12/25 09:03 02/12/25 09:03 02/11/25 17:00 Oxygen Flow Rate (L/min) 3 Oxygen Delivery Method Room Air Weight: 140 lb 10.479 oz Body Mass Index (BMI) 24.9 Intake & Output: Intake and Output for Last 24 Hours 02/10/25 02/11/25 02/12/25 23:59 23:59 23:59 Intake Total 1999 / 1999 2525 / 2525 Output Total 2400 / 2400 Balance 1999 / 999 125 / 125 Lab / Micro Data 02/12/25 06:19 02/12/25 06:19 Labs: Laboratory Results - last 24 hr 02/11/25 16:20: WBC 5.6, RBC 3.89 L, Hgb 12.0, Hct 37.0, MCV 95.1, MCH 30.8, MCHC 32.4, RDW Std Deviation 58.0 H, RDW Coeff of Juan David 16.8 H, Plt Count 191, MPV8.7, Immature Gran % (Auto) 0.400, Neut % (Auto) 71.5 H, Lymph % (Auto) 16.0 L, Green % (Auto) 11.7 H, Eos % (Auto) 0.0, Baso % (Auto) 0.4, Absolute Neuts (auto)4.0, Absolute Lymphs (auto) 0.90, Nucleated RBC % 0, Sodium 138, Potassium 3.1 L, Chloride 100, Carbon Dioxide 26.7, Anion Gap 11, BUN 15, Creatinine 0.97, Estim Creat Clear Calc 46.45 L, Est GFR (MDRD) Non-Af 62, BUN/Creatinine Ratio 15.3, Glucose 105 H, Calcium 8.3, Magnesium 2.2, Total Bilirubin 0.31, AST 23, ALT 21, Alkaline Phosphatase 87, Total Protein 5.2 L, Albumin 3.1 L, Globulin 2.1 L, Albumin/Globulin Ratio 1.5, Lipase 10 L 02/11/25 16:40: Urine Color Yellow, Urine Clarity Clear, Urine pH 7.0, Ur Specific [place] 1.010, Urine Protein 30 H, Urine Glucose (UA) Normal, Urine Ketones 5 H, Urine Occult Blood Negative, Urine Nitrite Negative, Urine Bilirubin Negative, Urine Urobilinogen Normal, Ur Leukocyte Esterase 25 H, UrineRBC 0 SEEN, Urine WBC 0-5 SEEN, Ur Squamous Epith Cells 0 SEEN, Urine Bacteria 2+, Urine Mucus 1+ 02/12/25 06:19: WBC 6.4, RBC 3.34 L, Hgb 10.4 L, Hct 32.4 L, MCV 97.0, MCH 31.1,MCHC 32.1, RDW Std Deviation 60.9 H, RDW Coeff of Juan David 17.0 H, Plt Count 155, MPV8.8, Immature Gran % (Auto) 0.500, Neut % (Auto) 69.4, Lymph % (Auto) 15.8 L, Green % (Auto) 11.0 H, Eos % (Auto) 2.8, Baso % (Auto) 0.5, Absolute Neuts (auto) 4.4, Absolute Lymphs (auto) 1.01, Nucleated RBC % 0, Sodium 142, Potassium 4.9, Chloride 111 H, Carbon Dioxide 24.1, Anion Gap 7, BUN 13, Creatinine 0.87, EstimCreat Clear Calc 51.79, Est GFR (MDRD) Non-Af 71, BUN/Creatinine Ratio 15.5, Glucose 94, Calcium 7.7, TSH 0.632 Radiography Diagnostic Testing: Radiology Impression Abdomen/Pelvis CT 02/11/25 15:13 IMPRESSION: Findings concerning for a persistent small-bowel obstruction. Additional findings are unchanged when compared to the prior study. Reading [facility] 02/12/25 05:00 IMPRESSION: Findings are again suggestive of a distal small-bowel obstruction. Consider small bowel follow-through examination to further assess. Reading [facility] Physical Exam Const alert and oriented x3 Constitutional Narrative: frail and weak General Appearance: cooperative HEENT normocephalic, head/scalp atraumatic and oropharynx normal Mouth: dry mucous membranes Eyes PERRL and EOMs intact bilaterally Neck no lymphadenopathy and supple Lymph Lymphatic: no lymphadenopathy noted Resp normal respiratory effort, normal air movement and clear to auscultation bilaterally Cardio regular rate, regular rhythm, S1 normal heart sound, S2 normal heart sound and no murmurs GI normal to inspection, nondistended, normoactive bowel sounds, soft to palpation,non-tender and non-distended Extremity normal capillary refill and no clubbing, cyanosis or edema General Extremity: no tenderness to palpation of joints or extremities Skin General Skin Exam: no breakdown Neuro CN's II-XII intact bilaterally, no focal motor deficits, no sensory deficits noted and deep tendon reflexes 2+ bilaterally Motor Exam: general weakness Psych thought process normal Appearance: appropriate Assessment & Plan Assessment/Plan (1) Partial small bowel obstruction: (2) Abdominal pain: (3) Hypokalemia: (4) Delayed surgical wound healing: PLAN: Plan #Small bowel obstruction due to severe constipation * has a history of metastatic small cell cancer. Admitted with a complaint of abdominal pain as well as CT abdomen/pelvis suggestive of persistent small bowel obstruction. 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 * was on systemic chemotherapy and immunotherapy with carboplatin, etoposide as well as durvalumab. * now on immunotherapy * continue with oncology on outpatient basis. * #History of COPD: not in exacerbation. Breathing treatment with bronchodilators. #Abnormal urinalysis: Urinalysis showed 2+ bacteria. Has no urinary symptoms. Check urine culture. #Depression and anxiety: currently NPO. resume meds once she is on a diet #GERD: on PPI. DVt prophylaxis; SCDs. Charges/Coding Visit Charges Inpatient E&M: 14015 Subs Hosp L2 02/12/25 2437 <Electronically signed by Delia Mcqueen MD> Delia Mcqueen MD Cosigner Signature (if applicable): CC: ~ Signed [facility] Work Phone: [phone] Consult note Author Cristin Boyce [facility] Note Date/Time February 12, 2025 9:[address] [facility] Medical Records Department [address] [place] [address] Consultation - Surgical 02/11/252103 MR#: [id number] Acct: [id number] Name: KARINA FERNANDO Rep #:[id number] : 1950 74 From: Cristin Boyce MD PCP: TORIBIO CASTILLO Status:ADM IN Location: PA3 LN316-[address] Cristin Boyce MD on 02/12/25 at 0918 Visit Charges Inpatient E&M: 73242 Init Hosp L3 02/12/25 0918<Electronically signed by Cristin Boyce MD> Cosigner Signature (if applicable): cc: TORIBIO CASTILLO ~* Signed Assessment & Plan Assessment/Plan (1) Partial small bowel obstruction: (2) Abdominal pain: (3) Constipation: PLAN: Plan Reviewed CT a/p with pt and family. I don't see any decompressed SB but there is still stool in rectum and left colon w somewhat liquid looking stool in cecum. I think pt constipation likely contributed to this--pt admits pain in her back has been worse recently and she has been taking more pain meds & did just recently increase her laxatives a couple weeks ago. Pt was unable to tolerate NG as she was vomiting after and it came back out her mouth. pain control- IV dilaudid & will try fentanyl patch 25 mcg. check KUB in AM and possibly sBFT tomorrow; got enema in ER and another on floor.--currently denies abd pain but very uncomfortable due to back pain. Cristin Boyce M.D. Pager: [phone] [facility] [address] [place] [address], [facility], [address] [place] [address] Office: [phone] HPI Consult Data Date of Consult: 02/12/25 HPI Narrative HPI Narrative: KARINA FERNANDO, is a 74 F who presents to the ER due to abdominal pain and nausea vomiting. Patient does have past medical history for metastatic non-small cell cancer and has chronic back pain with this which has been getting worse patient does take oxy 10 mg every 6 hours 30 minutes apart for half the pill. Patient states that she did have to disimpact herself a couple days ago due to constipation but did go a lot. Patient recently started on senna and Colace in last [address] abdomen pelvis showed dilated small bowel report called small bowel obstruction?persistent compared to CAT scan 01/28/2025. Personally did review CAT scan patient does have more dilatation of her bowels than on 01/28/2025. Currently patient denies any abdominal pain. Did receive an enema in the ER. [facility] Medical History Delayed surgical wound [...] 10 mg tablet 10 mg PO DAILY allergy 08/2402/10/25 09:00 History multivitamin 1 tab PO QAM supplement 10/1002/10/25 09:00 History albuterol sulfate 2.5 mg/3 mL 2.5 mg inhalation PRN ID N 09/22/24 02/11/25 18:50 History (0.083 %) solution for nebulization shortness of breat h or wheezing lidocaine-prilocaine 2.5 %-2.5 % 1 applic topical ONCE PRN port 10/26/24 Unknown Rx topical cream access 30 days #30 grams ondansetron 8 mg disintegrating 8 mg PO Q8H PRN nausea and 10/26/24 02/11/25 Rx tablet vomiting #30 tabs prochlorperazine maleate 10 mg 10 mg PO Q6H PRN nausea and 10/26/24 Unknown Rx tablet vomiting #30 tabs budesonide-formoterol HFA 80 2 inh inhalation .x4 sob 11/09/24 02/11/25 03:00 History mcg-4.5 mcg/actuation aerosol inhaler buspirone 10 mg tablet 10 mg PO TID PRN anxiety 02/10/25 22:00 History pantoprazole 40 mg tablet,delayed 40 mg PO QDAY gerd 0 11/13/24 02/10/25 09:00 History release docusate sodium 100 mg capsule 200 mg PO QDAY constipa tion 11/17/24 02/10/25 22:00 History (Dulcolax Stool Softener (docusate)) ferrous sulfate 325 mg (65 mg 325 mg PO QDAY supplemen t 11/17/24 02/10/25 09:00 History iron) tablet,delayed release trazodone 100 mg tablet 100 mg PO QHS sleep 11/17/24 02/10/25 21:00 History valacyclovir 500 mg tablet 500 mg PO QDAY PRN shingles 11/17/24 Unknown History oxycodone 10 mg tablet 10 mg PO BID PRN pain 02/11/25 14:00 History cyanocobalamin (vitamin B-12) 50 50 mcg PO DAILY 02/11 Unknown History mcg tablet durvalumab 50 mg/mL intravenous IV Q14D 02/11/25 Unkno wn History solution famotidine 10 mg tablet 10 mg PO BID gerd 02/11/25 0 02/10/25 22:00 History furosemide 20 mg tablet 20 mg PO DAILY PRN swelling 02/11/25 02/10/25 09:00 History potassium chloride 20 mEq 20 meq PO DAILY sepplement 0 02/11/25 02/10/25 09:00 History tablet,extended release(part/cryst) zinc citrate, zinc oxide 50 mg 50 mg PO DAILY suppleme nt 02/11/25 02/10/25 09:00 History tablet Allergy/AdvReac Type Severity Reaction Status Date / Time calcipotriene Allergy Severe Rash Verified 02/11/25 14:51 Opioids - Morphine Analogues Allergy Severe Hives Verified 02/11/25 14:51 alendronate sodium (From Allergy Pain in Verified 02/11/25 14:51 Fosamax) joints cefaclor (From Ceclor) Allergy Hives Verified 02/11/25 14:51 ezetimibe Allergy Other Verified 02/11/25 14:51 Penicillins Allergy Hives Verified 02/11/25 14:51 tramadol HCl (From Ultram) Allergy Hives Verified 02/11/25 14:51 hydrochlorothiazide AdvReac Unknown reaction Verified 02/11/25 14:51 erythromycin base AdvReac Nausea Verified 02/11/25 14:51 Family History Mother Leukemia Osteoporosis Thyroid disorder [...] years used: 30 alcohol intake: never ROS Constitutional Constitutional: Reports anorexia Eyes Eyes: Denies loss of central vision ENT HEENT: Denies dysphagia Cardiovascular Cardiovascular: Denies chest pain Respiratory/Chest Respiratory/Chest: Denies cough Gastrointestinal Gastrointestinal: Reports abdominal pain, nausea and vomiting Genitourinary Genitourinary: Denies dysuria Musculoskeletal Musculoskeletal: Reports back pain Integumentary Integumentary: Denies jaundice Psychiatric Psychiatric: Denies anxiety Hematologic/Lymphatic Hematologic/Lymphatic: Denies easy bleeding Physical Exam Const alert and oriented x3 Constitutional Narrative: Patient uncomfortable due to back pain HEENT normocephalic and head/scalp atraumatic Resp normal respiratory effort Cardio regular rate GI soft to palpation; Negative for non-distended Palpation: tender RLQ; Negative for guarding Extremity no clubbing, cyanosis or edema Neuro CN's II-XII intact bilaterally Psych mental status grossly normal Lab / Micro Data 02/12/25 06:19 02/12/25 06:19 Labs: Laboratory Results - last 24 hr 02/11/25 16:20: WBC 5.6, RBC 3.89 L, Hgb 12.0, Hct 37.0, MCV 95.1, MCH 30.8, MCHC 32.4, RDW Std Deviation 58.0 H, RDW Coeff of Juan David 16.8 H, Plt Count 191, MPV8.7, Immature Gran % (Auto) 0.400, Neut % (Auto) 71.5 H, Lymph % (Auto) 16.0 L, Green % (Auto) 11.7 H, Eos % (Auto) 0.0, Baso % (Auto) 0.4, Absolute Neuts (auto)4.0, Absolute Lymphs (auto) 0.90, Nucleated RBC % 0, Sodium 138, Potassium 3.1 L, Chloride 100, Carbon Dioxide 26.7, Anion Gap 11, BUN 15, Creatinine 0.97, Estim Creat Clear Calc 46.45 L, Est GFR (MDRD) Non-Af 62, BUN/Creatinine Ratio 15.3, Glucose 105 H, Calcium 8.3, Magnesium 2.2, Total Bilirubin 0.31, AST 23, ALT 21, Alkaline Phosphatase 87, Total Protein 5.2 L, Albumin 3.1 L, Globulin 2.1 L, Albumin/Globulin Ratio 1.5, Lipase 10 L 02/11/25 16:40: Urine Color Yellow, Urine Clarity Clear, Urine pH 7.0, Ur Specific [place] 1.010, Urine Protein 30 H, Urine Glucose (UA) Normal, Urine Ketones 5 H, Urine Occult Blood Negative, Urine Nitrite Negative, Urine Bilirubin Negative, Urine Urobilinogen Normal, Ur Leukocyte Esterase 25 H, UrineRBC 0 SEEN, Urine WBC 0-5 SEEN, Ur Squamous Epith Cells 0 SEEN, Urine Bacteria 2+, Urine Mucus 1+ Imaging Radiology Impression Abdomen/Pelvis CT 02/11/25 15:13 IMPRESSION: Findings concerning for a persistent small-bowel obstruction. Additional findings are unchanged when compared to the prior study. Reading Location[facility] [facility] 02/12/25 8100 <Electronically signed by Cristin Boyce MD> Cosigner Signature (if applicable): CC: TORIBIO CASTILLO~ Signed [facility] Work Phone: 1(564) 793-742507-28-2025 Progress note Author Heena Courtney [facility] Note Date/Time February 12, 2025 9:02 am [facility] Medical Records Department [address] [place] [address] Progress Note - Surgery 02/12/25 0853 MR#: [id number] Acct: [id number] Name: KARINA FERNANDO Rep #:[id number] : 1950 74 From: Heena VANCE PA-C PCP: TORIBIO CASTILLO Status:ADM IN Location: [id number] Subjective Subjective Patient evaluated resting comfortably in the chair. She notes minimal amount of nausea this morning. She denies any abdominal pain currently. She denies any recent BM since her last enema yesterday. She has not passed flatus. Objective Data Objective Data Vital Signs: Vital Signs Temp Pulse Resp BP Pulse Ox O2 Del Method O2 Flow Rate 98 F 93 18 112/76 99 Room Air 3 02/12/25 03:00 02/12/25 06:27 02/12/25 06:27 02/12/25 03:00 02/12/25 06:27 02/12/25 06:27 02/11/25 17:00 Oxygen Flow Rate (L/min) 3 Oxygen Delivery Method Room Air Weight: 140 lb 10.479 oz Body Mass Index (BMI) 24.9 Intake & Output: Intake and Output for Last 24 Hours 02/10/25 02/11/25 02/12/25 23:59 23:59 23:59 Intake Total 1999 / 1999 Output Total 1000 / 1000 Balance 1999 / 999 1000 / 1000 Lab / Micro Data 02/12/25 06:19 02/12/25 06:19 Labs: Laboratory Results - last 24 hr 02/11/25 16:20: WBC 5.6, RBC 3.89 L, Hgb 12.0, Hct 37.0, MCV 95.1, MCH 30.8, MCHC 32.4, RDW Std Deviation 58.0 H, RDW Coeff of Juan David 16.8 H, Plt Count 191, MPV8.7, Immature Gran % (Auto) 0.400, Neut % (Auto) 71.5 H, Lymph % (Auto) 16.0 L, Green % (Auto) 11.7 H, Eos % (Auto) 0.0, Baso % (Auto) 0.4, Absolute Neuts (auto)4.0, Absolute Lymphs (auto) 0.90, Nucleated RBC % 0, Sodium 138, Potassium 3.1 L, Chloride 100, Carbon Dioxide 26.7, Anion Gap 11, BUN 15, Creatinine 0.97, Estim Creat Clear Calc 46.45 L, Est GFR (MDRD) Non-Af 62, BUN/Creatinine Ratio 15.3, Glucose 105 H, Calcium 8.3, Magnesium 2.2, Total Bilirubin 0.31, AST 23, ALT 21, Alkaline Phosphatase 87, Total Protein 5.2 L, Albumin 3.1 L, Globulin 2.1 L, Albumin/Globulin Ratio 1.5, Lipase 10 L 02/11/25 16:40: Urine Color Yellow, Urine Clarity Clear, Urine pH 7.0, Ur Specific [place] 1.010, Urine Protein 30 H, Urine Glucose (UA) Normal, Urine Ketones 5 H, Urine Occult Blood Negative, Urine Nitrite Negative, Urine Bilirubin Negative, Urine Urobilinogen Normal, Ur Leukocyte Esterase 25 H, UrineRBC 0 SEEN, Urine WBC 0-5 SEEN, Ur Squamous Epith Cells 0 SEEN, Urine Bacteria 2+, Urine Mucus 1+ 02/12/25 06:19: WBC 6.4, RBC 3.34 L, Hgb 10.4 L, Hct 32.4 L, MCV 97.0, MCH 31.1,MCHC 32.1, RDW Std Deviation 60.9 H, RDW Coeff of Juan David 17.0 H, Plt Count 155, MPV8.8, Immature Gran % (Auto) 0.500, Neut % (Auto) 69.4, Lymph % (Auto) 15.8 L, Green % (Auto) 11.0 H, Eos % (Auto) 2.8, Baso % (Auto) 0.5, Absolute Neuts (auto) 4.4, Absolute Lymphs (auto) 1.01, Nucleated RBC % 0, Sodium 142, Potassium 4.9, Chloride 111 H, Carbon Dioxide 24.1, Anion Gap 7, BUN 13, Creatinine 0.87, EstimCreat Clear Calc 51.79, Est GFR (MDRD) Non-Af 71, BUN/Creatinine Ratio 15.5, Glucose 94, Calcium 7.7, TSH 0.632 Radiography Diagnostic Testing: Radiology Impression Abdomen/Pelvis CT 02/11/25 15:13 IMPRESSION: Findings concerning for a persistent small-bowel obstruction. Additional findings are unchanged when compared to the prior study. Reading Location[facility] 02/12/25 05:00 IMPRESSION: Findings are again suggestive of a distal small-bowel obstruction. Consider small bowel follow-through examination to further assess. Reading Location: [place] [address] Physical Exam GI GI Narrative: Abdomen- soft, slightly distended. Nontender Assessment & Plan Assessment/Plan (1) Partial small bowel obstruction: (2) Abdominal pain: PLAN: Plan I am following this patient in conjunction with Dr. Boyce. She will independently evaluate this patient. Labs reviewed Plan for a small bowel follow-through today along with an enema Continue to keep patient NPO at this time We will continue to monitor this patient Charges/Coding Visit Charges Inpatient E&M: 49986 Subs Hosp L2 02/12/25 0902 <Electronically signed by Heena VANCE PA-C> Cosigner Signature (if applicable): CC: ~ Signed [facility] Work Phone: 1(284) 205-761107-28-2025 Radiology Diagnostic study [facility]07-27-2025 History and physical note Author Ami Magdaleno [facility] Note Date/Time February 11, 2025 6:34 pm [facility] Medical Records Department [address] [place] [address] H&P Exam - Hospitalist 02/11/25 1800 MR#: [id number] Acct: [id number] Name: KARINA FERNANDO Hans Rep #:[id number] : 1950 74 From: Ami Magdaleno MD PCP: TORIBIO CASTILLO Status:ADM IN Location: [id number] HPI - General General Date of Admission: 02/11/25 Date of Service: 02/11/25 Chief Complaint: Abdominal pain, nausea, vomiting HPI Narrative KARINA FERNANDO, is a 74-year-old female with 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 Does take oxycodone throughout the day and presentedhere Wednesday, 4 days ago, she had to disimpact herself. She started having bowel movements again and improvement a day and a half later she started experiencing abdominal bloating and vomited 3-4 times without hematemesis in thepast 24 hours. Abdominal pain is diffuse and she has abdominal distention. In the ED afebrile, heart rate 124 with a blood pressure 119/84, respiratory rate 22 and patient 97% on room air. CBC with white count of 5.6. CMP with a potassium of 3.1, BUN of 15 and creatinine 0.97. Lipase 10. UA not suggestive of infectious source. Abdominal/pelvis CT suggestive of persistent small bowel obstruction but other findings unchanged. Surgery service contacted who recommended an NG tube, enema, admit to medicine and they will follow in consultation. Hospitalist contacted for admission. Patient evaluated bedside. She just had enema, reports she feels a little bit better than when she came in,still has abdominal pain and nausea but both are slightly improved. Denies any fevers, no changes in bladder, denies any changes in her breathing or new cough. He is on immunotherapy with last treatment 3 weeks ago. [facility] Medical History Delayed surgical wound [...] 2.5 mg/3 mL 2.5 mg inhalation PRN ID N 09/22/24 11/16/24 History (0.083 %) solution [...] .x4 10/1811/16/24 History mcg-4.5 mcg/actuation aerosol inhaler buspirone 10 mg tablet 10 mg PO TID PRN anxiety 11/16/24 History pantoprazole 40 mg tablet,delayed 40 mg PO QDAY 11/16/24 History release docusate sodium 100 mg capsule 200 mg PO QDAY 11/17/24 Unknown History (Dulcolax Stool Softener (docusate)) ferrous sulfate 325 mg (65 mg 325 mg PO QDAY 11/17/24 Unknown History iron) tablet,delayed release trazodone 100 mg tablet 150 mg PO QHS 11/17/24 Unkno wn History valacyclovir 500 mg tablet 500 mg PO QDAY PRN shingles 11/17/24 Unknown History oxycodone 10 mg tablet 10 mg PO BID PRN pain Unknown History cyanocobalamin (vitamin B-12) 50 50 mcg PO DAILY 02/11 Unknown History mcg tablet durvalumab 50 mg/mL intravenous IV Q14D 02/11/25 Unkno wn History solution famotidine 10 mg tablet 10 mg PO BID 02/11/25 Unknow n History furosemide 20 mg tablet 20 mg PO DAILY PRN swelling 02/11/25 Unknown History potassium chloride 20 mEq 20 meq PO DAILY 02/11/25 Unk nown History tablet,extended release(part/cryst) zinc citrate, zinc oxide 50 mg 50 mg PO DAILY 02/11/25 Unknown History tablet Allergy/AdvReac Type Severity Reaction Status Date / Time calcipotriene Allergy Severe Rash Verified 02/11/25 14:51 Opioids - Morphine Analogues Allergy Severe Hives Verified 02/11/25 14:51 alendronate sodium (From Allergy Pain in Verified 02/11/25 14:51 Fosamax) joints cefaclor (From Ceclor) Allergy Hives Verified 02/11/25 14:51 ezetimibe Allergy Other Verified 02/11/25 14:51 Penicillins Allergy Hives Verified 02/11/25 14:51 tramadol HCl (From Ultra) Allergy Hives Verified 02/11/25 14:51 hydrochlorothiazide AdvReac Unknown reaction Verified 02/11/25 14:51 erythromycin base AdvReac Nausea Verified 02/11/25 14:51 Family History Mother Leukemia Osteoporosis Thyroid disorder [...] 30 alcohol intake: never ROS ROS Narrative General: Denies fever/chills HENT: Denies headache, denies stuffy nose, denies sore throat EYES: Denies changes in vision Resp: No changes in vision or new cough Cardiac: Denies chest pain GI: Has had problems with constipation, diffuse abdominal pain, nausea with vomiting, slightly improved : Denies changes in urination Extremity: Did have swelling in lower extremities with cellulitis and took Doxy for 7 days but this is resolved MSK: Denies focal weakness Neuro: Denies any numbness/tingling Heme: Denies any bleeding or bruising Skin: Denies rashes Psychiatric: No complaints voiced Vital Signs Vital Signs Vital Signs: 02/11/25 14:48 02/11/25 14:51 02/11/25 17:00 Temperature 98.7 F 98.7 F 98.7 F Temperature Source Oral Oral Oral Pulse Rate 124 H 124 H 107 H Respiratory Rate 22 H 22 H 13 Blood Pressure 119/84 H 119/84 H 128/85 H Blood Pressure Mean 95 95 99 Pulse Ox 97 97 92 Oxygen Delivery Method Nasal Cannula Room Air Nasal Cannula Oxygen Flow Rate (L/min) 3 3 Weight Weight: 63.8 kg Body Mass Index (BMI) 24.9 Physical Exam Narrative General: Alert, oriented, no apparent distress HEENT: Atraumatic, normocephalic Eyes: Anicteric, normal conjunctiva, extraocular movements grossly intact Neck: Supple Respiratory: No overt wheezes or rhonchi, normal respiratory effort Cardiovascular: Low-grade sinus tachycardia GI: A little bit diffusely tender but no rebound, guarding, rigidity, little distended Extremities: Trace bilateral lower extremity edema Musculoskeletal: Moving all extremities Neuro: No overt focal neurological deficits Skin: No rashes appreciated Psych: Cooperative Results Lab / Micro Data 02/11/25 16:20 02/11/25 16:20 Labs: Laboratory Results - last 24 hr 02/11/25 16:20: WBC 5.6, RBC 3.89 L, Hgb 12.0, Hct 37.0, MCV 95.1, MCH 30.8, MCHC 32.4, RDW Std Deviation 58.0 H, RDW Coeff of Juan David 16.8 H, Plt Count 191, MPV8.7, Immature Gran % (Auto) 0.400, Neut % (Auto) 71.5 H, Lymph % (Auto) 16.0 L, Green % (Auto) 11.7 H, Eos % (Auto) 0.0, Baso % (Auto) 0.4, Absolute Neuts (auto)4.0, Absolute Lymphs (auto) 0.90, Nucleated RBC % 0, Sodium 138, Potassium 3.1 L, Chloride 100, Carbon Dioxide 26.7, Anion Gap 11, BUN 15, Creatinine 0.97, Estim Creat Clear Calc 46.45 L, Est GFR (MDRD) Non-Af 62, BUN/Creatinine Ratio 15.3, Glucose 105 H, Calcium 8.3, Magnesium 2.2, Total Bilirubin 0.31, AST 23, ALT 21, Alkaline Phosphatase 87, Total Protein 5.2 L, Albumin 3.1 L, Globulin 2.1 L, Albumin/Globulin Ratio 1.5, Lipase 10 L 02/11/25 16:40: Urine Color Yellow, Urine Clarity Clear, Urine pH 7.0, Ur Specific [place] 1.010, Urine Protein 30 H, Urine Glucose (UA) Normal, Urine Ketones 5 H, Urine Occult Blood Negative, Urine Nitrite Negative, Urine Bilirubin Negative, Urine Urobilinogen Normal, Ur Leukocyte Esterase 25 H, UrineRBC 0 SEEN, Urine WBC 0-5 SEEN, Ur Squamous Epith Cells 0 SEEN, Urine Bacteria 2+, Urine Mucus 1+ Imaging Radiology Impression Abdomen/Pelvis CT 02/11/25 15:13 IMPRESSION: Findings concerning for a persistent small-bowel obstruction. Additional findings are unchanged when compared to the prior study. Reading Location[facility] Assessment & Plan Assessment/Plan (1) Partial small bowel obstruction: PLAN: Plan # Small bowel obstruction - Abdominal/pelvis CT suggestive of persistent small bowel obstruction - ED physician discussed with on-call surgeon, NG tube and enema recommended andthey will see in consultation -Surgery consult -NG tube placed in ED -Enema ordered -N.p.o. 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 Chance, last seen in office 01/23/2025 #Hx COPD -Continue home inhalers -Incentive spirometer #Depression/anxiety - Patient n.p.o. with NG tube, resume home medications once patient able to tolerate p.o. #GERD -Continue PPI but will convert to IV given n.p.o. status and NG tube #DVT ppx: SCDs Ami Magdaleno MD Charges/Coding Visit Charges Inpatient E&M: 77824 Init Hosp L2 02/11/25 1834 <Electronically signed by Ami Magdaleno MD> Cosigner Signature (if applicable): CC: Dr. Ami Magdaleno MD; TORIBIO CASTILLO~ Signed [facility] Work Phone: 1(226) 758-426107-27-2025 Discharge summary Author Tay Dumont [facility] Note Date/Time February 11, 2025 5:[address] [facility] Medical Records Department [address] [place] [address] Emergency Department Summary 02/11/25 MR#: [id number] Acct: [id number] Name: KARINA FERNANDO Rep #:[id number] : 1950 74 From: Tay Dumont MD PCP: TORIBIO CASTILLO Status:REG ER Location: ED HPI HPI - GI History of Present Illness Chief Complaint: Abd Pain Narrative Narrative: 74-year-old female past medical history of small cell lung carcinoma with metastasis to adrenal gland and heart presents with nausea and vomiting, abdominal pain and bloating and constipation that started approximately 2 weeks ago. She states she takes a total of 10 mg of oxycodone a few times a day. Shewill usually take half a tablet that half an hour later take the other half. Over the last 2 weeks, she has had problems with constipation to the point whereon Wednesday, 4 days ago, she had to disimpact herself. She has been taking Dulcolax as well. She started to have bowel movements again and feel improved but a day and a half later, she started experiencing abdominal bloating. She has vomited 3 or 4 times without hematemesis in the last 24 hours. She has diffuse abdominal pain and abdominal distention. Past abdominal surgery includes appendectomy at 17 years old. She denies any exacerbating or alleviating factors. No fevers or chills. [facility] Medical History Delayed surgical wound [...] 10 mg tablet 10 mg PO DAILY 08/24/19/ History multivitamin 1 tab PO QAM 09/18/24 History albuterol sulfate 2.5 mg/3 mL 2.5 mg inhalation PRN ID N 09/22/24 11/16/24 History (0.083 %) solution [...] .x4 10/1811/16/24 History mcg-4.5 mcg/actuation aerosol inhaler buspirone 10 mg tablet 10 mg PO TID PRN anxiety 11/16/24 History pantoprazole 40 mg tablet,delayed 40 mg PO QDAY 11/16/24 History release docusate sodium 100 mg capsule 200 mg PO QDAY 11/17/24 Unknown History (Dulcolax Stool Softener (docusate)) ferrous sulfate 325 mg (65 mg 325 mg PO QDAY 11/17/24 Unknown History iron) tablet,delayed release trazodone 100 mg tablet 150 mg PO QHS 11/17/24 Unkno wn History valacyclovir 500 mg tablet 500 mg PO QDAY PRN shingles 11/17/24 Unknown History oxycodone 10 mg tablet 10 mg PO BID PRN pain Unknown History cyanocobalamin (vitamin B-12) 50 50 mcg PO DAILY 02/11 Unknown History mcg tablet durvalumab 50 mg/mL intravenous IV Q14D 02/11/25 Unkno wn History solution famotidine 10 mg tablet 10 mg PO BID 02/11/25 Unknow n History furosemide 20 mg tablet 20 mg PO DAILY PRN swelling 02/11/25 Unknown History potassium chloride 20 mEq 20 meq PO DAILY 02/11/25 Unk nown History tablet,extended release(part/cryst) zinc citrate, zinc oxide 50 mg 50 mg PO DAILY 02/11/25 Unknown History tablet Allergy/AdvReac Type Severity Reaction Status Date / Time calcipotriene Allergy Severe Rash Verified 02/11/25 14:51 Opioids - Morphine Analogues Allergy Severe Hives Verified 02/11/25 14:51 alendronate sodium (From Allergy Pain in Verified 02/11/25 14:51 Fosamax) joints cefaclor (From Ceclor) Allergy Hives Verified 02/11/25 14:51 ezetimibe Allergy Other Verified 02/11/25 14:51 Penicillins Allergy Hives Verified 02/11/25 14:51 tramadol HCl (From [facility]) Allergy Hives Verified 02/11/25 14:51 hydrochlorothiazide AdvReac Unknown reaction Verified 02/11/25 14:51 erythromycin base AdvReac Nausea Verified 02/11/25 14:51 Family History Mother Leukemia Osteoporosis Thyroid disorder [...] intake: never ROS ROS ED ROS Narrative Review of systems positive for abdominal pain and bloating. Positive constipation. 2 weeks of abdominal pain and constipation minorly improved 4 days ago. She states that she has been nauseated since the beginning of January, over the last 3 or 4 weeks. Last chemotherapy 5 weeks ago but she is currently on immunotherapy. She has something for nausea at home but states she vomited back up today. EXAM Physical Exam Narrative Exam Narrative: Afebrile. Vital signs noted. Nontoxic-appearing. Cardiovascular examination reveals mild tachycardia. Lungs are clear to auscultation bilaterally. Abdomenis diffusely tender with slightly diminished bowel sounds. Positive distention. Neurological examination nonfocal, nonlateralizing. Const Vital Signs: 02/11/25 14:48 02/11/25 14:51 02/11/25 17:00 Temperature 98.7 F 98.7 F 98.7 F Temperature Source Oral Oral Oral Pulse Rate 124 H 124 H 107 H Respiratory Rate 22 H 22 H 13 Blood Pressure 119/84 H 119/84 H 128/85 H Blood Pressure Mean 95 95 99 Pulse Ox 97 97 92 Oxygen Delivery Method Nasal Cannula Room Air Nasal Cannula Oxygen Flow Rate (L/min) 3 3 MDM MDM MDM Narrative Medical decision making narrative: The differential diagnosis includes but not limited to opiate bowel/constipationversus nonspecific abdominal pain versus bowel obstruction versus pancreatitis versus colitis. I have lower clinical suspicion for pancreatitis and colitis based on the history and physical. Comprehensive workup was pursued. She declined any opiate analgesics but she was administered ondansetron for nausea. I do feel CT imaging is indicated to help rule out bowel obstruction. I reviewed her laboratory work and she has a normal white count of 5.6 with hemoglobin 12.0, hematocrit 37.0, platelet count 191. Potassium slightly low at3.1 on CMP so I will add a magnesium and this will be replaced intravenously. BUN 15 and creatinine normal at 0.97. Glucose 105 with a normal anion gap of 11. LFTs are grossly unremarkable. Lipase low at 10. When compared to prior labs was also 10. Urinalysis negative for infection. 0-5 WBCs. I do not feel that antibiotics are indicated. On review of the CT scan, she has dilated bowel loops. I reviewed the radiologyreport and there is concern for partial small bowel obstructions. She did have a prior study earlier in the month which showed dilated loops of bowel, but no evidence of acute obstruction. However, on review of today's radiology report, there is concern for partial small bowel obstruction. I discussed the patient with general surgery, Dr. Boyce who would like an NG tube placed and the patient given an enema as well, and requested admit to medicine. I discussed patient with Dr. Ami Magdaleno for admission. Disposition is admit to the medical surgical floor in stable condition. History & Record Review Discussion w/independent historian: Patient and Family Additional record(s) reviewed:: Prior outpatient record (CT scan with dilated bowel loops but no findings consistent with obstruction), Prior ED visit and Prior labs Lab Data Attestation: I reviewed the patient's lab results. Labs: Laboratory Results - last 24 hr 02/11/25 02/11/25 16:20 16:40 WBC 5.6 RBC 3.89 L Hgb 12.0 Hct 37.0 MCV 95.1 MCH 30.8 MCHC 32.4 RDW Std Deviation 58.0 H RDW Coeff of Juan Advid 16.8 H Plt Count 191 MPV 8.7 Immature Gran % (Auto) 0.400 Neut % (Auto) 71.5 H Lymph % (Auto) 16.0 L Green % (Auto) 11.7 H Eos % (Auto) 0.0 Baso % (Auto) 0.4 Absolute Neuts (auto) 4.0 Absolute Lymphs (auto) 0.90 Nucleated RBC % 0 Sodium 138 Potassium 3.1 L Chloride 100 Carbon Dioxide 26.7 Anion Gap 11 BUN 15 Creatinine 0.97 Estim Creat Clear Calc 46.45 L Est GFR (MDRD) Non-Af 62 BUN/Creatinine Ratio 15.3 Glucose 105 H Calcium 8.3 Magnesium 2.2 Total Bilirubin 0.31 AST 23 ALT 21 Alkaline Phosphatase 87 Total Protein 5.2 L Albumin 3.1 L Globulin 2.1 L Albumin/Globulin Ratio 1.5 Lipase 10 L Urine Color Yellow Urine Clarity Clear Urine pH 7.0 Ur Specific [place] 1.010 Urine Protein 30 H Urine Glucose (UA) Normal Urine Ketones 5 H Urine Occult Blood Negative Urine Nitrite Negative Urine Bilirubin Negative Urine Urobilinogen Normal Ur Leukocyte Esterase 25 H Urine RBC 0 SEEN Urine WBC 0-5 SEEN Ur Squamous Epith Cells 0 SEEN Urine Bacteria 2+ Urine Mucus 1+ Radiography Diagnostic Testing: Clinical Impression(s) from Imaging Studies Abdomen/Pelvis CT 02/11/25 15:13 IMPRESSION: Findings concerning for a persistent small-bowel obstruction. Additional findings are unchanged when compared to the prior study. Reading Location: [facility] Management Discussion w/another healthcare provider: Hospitalist (Dr. Magdaleno) and Director Of Acquisitions (General surgery, Dr. Boyce) Discharge Plan Dx/Rx/DC Orders Clinical Impression: Partial small bowel obstruction, Small cell lung cancer, Hypokalemia, Abdominalpain Disposition Disposition: Acute Care Hospital [facility] What to do if you have Problems For any increased pain, shortness of breath, bleeding, nausea or vomiting, chestpain, or any unexpected problems, contact your Primary Care Provider. Call [facility] ([phone]) or report to the closest Emergency Room. Call 911 if necessary. 02/11/25 1736 <Electronically signed by Tay Dumont MD> Cosigner Signature (if applicable): CC: TORIBIO CASTILLO ~ Signed [facility] Work Phone: 1(284) 576-805407-27-[address] 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 Does take oxycodone throughout the day and presentedhere Wednesday, 4 days ago, she had to disimpact herself. She started having bowel movements again and improvement a day and a half later she started experiencing abdominal bloating and vomited 3-4 times without hematemesis in thepast 24 hours. Abdominal pain is diffuse and she has abdominal distention. In the ED afebrile, heart rate 124 with a blood pressure 119/84, respiratory rate 22 and patient 97% on room air. CBC with white count of 5.6. CMP with a potassium of 3.1, BUN of 15 and creatinine 0.97. Lipase 10. UA not suggestive of infectious source. Abdominal/pelvis CT suggestive of persistent small bowel obstruction but other findings unchanged. Surgery service contacted who r ecommended an NG tube, enema, admit to medicine and they will follow in consultation. Hospitalist contacted for admission. Patient evaluated bedside. She just had enema, reports she feels a little bit better than when she came in,still has abdominal pain and nausea but both are slightly improved. Denies any fevers, no changes in bladder, denies any changes in her breathing or new cough. He is on immunotherapy with last treatment 3 weeks ago. [facility] Medical History Delayed surgical wound [...] 2.5 mg/3 mL 2.5 mg inhalation PRN ID N 09/22/24 11/16/24 History (0.083 %) solution [...] .x4 10/1811/16/24 History mcg-4.5 mcg/actuation aerosol inhaler buspirone 10 mg tablet 10 mg PO TID PRN anxiety 11/16/24 History pantoprazole 40 mg tablet,delayed 40 mg PO QDAY 11/16/24 History release docusate sodium 100 mg capsule 200 mg PO QDAY 11/17/24 Unknown History (Dulcolax Stool Softener (docusate)) ferrous sulfate 325 mg (65 mg 325 mg PO QDAY 11/17/24 Unknown History iron) tablet,delayed release trazodone 100 mg tablet 150 mg PO QHS 11/17/24 Unkno wn History valacyclovir 500 mg tablet 500 mg PO QDAY PRN shingles 11/17/24 Unknown History oxycodone 10 mg tablet 10 mg PO BID PRN pain Unknown History cyanocobalamin (vitamin B-12) 50 50 mcg PO DAILY 02/11 Unknown History mcg tablet durvalumab 50 mg/mL intravenous IV Q14D 02/11/25 Unkno wn History solution famotidine 10 mg tablet 10 mg PO BID 02/11/25 Unknow n History furosemide 20 mg tablet 20 mg PO DAILY PRN swelling 02/11/25 Unknown History potassium chloride 20 mEq 20 meq PO DAILY 02/11/25 Unk nown History tablet,extended release(part/cryst) zinc citrate, zinc oxide 50 mg 50 mg PO DAILY 02/11/25 Unknown History tablet Allergy/AdvReac Type Severity Reaction Status Date / Time calcipotriene Allergy Severe Rash Verified 02/11/25 14:51 Opioids - Morphine Analogues Allergy Severe Hives Verified 02/11/25 14:51 alendronate sodium (From Allergy Pain in Verified 02/11/25 14:51 Fosamax) joints cefaclor (From Ceclor) Allergy Hives Verified 02/11/25 14:51 ezetimibe Allergy Other Verified 02/11/25 14:51 Penicillins Allergy Hives Verified 02/11/25 14:51 tramadol HCl (From [facility]) Allergy Hives Verified 02/11/25 14:51 hydrochlorothiazide AdvReac Unknown reaction Verified 02/11/25 14:51 erythromycin base AdvReac Nausea Verified 02/11/25 14:51 Family History Mother Leukemia Osteoporosis Thyroid disorder [...] 30 alcohol intake: never ROS ROS Narrative General: Denies fever/chills HENT: Denies headache, denies stuffy nose, denies sore throat EYES: Denies changes in vision Resp: No changes in vision or new cough Cardiac: Denies chest pain GI: Has had problems with constipation, diffuse abdominal pain, nausea with vomiting, slightly improved : Denies changes in urination Extremity: Did have swelling in lower extremities with cellulitis and took Doxy for 7 days but thisis resolved MSK: Denies focal weakness Neuro: Denies any numbness/tingling Heme: Denies any bleeding or bruising Skin: Denies rashes Psychiatric: No complaints voiced Vital Signs Vital Signs Vital Signs: 02/11/25 14:48 02/11/25 14:51 02/11/25 17:00 Temperature 98.7 F 98.7 F 98.7 F Temperature Source Oral Oral Oral Pulse Rate 124 H 124 H 107 H Respiratory Rate 22 H 22 H 13 Blood Pressure 119/84 H 119/84 H 128/85 H Blood Pressure Mean 95 95 99 Pulse Ox 97 97 92 Oxygen Delivery Method Nasal Cannula Room Air Nasal Cannula Oxygen Flow Rate (L/min) 3 3 Weight Weight: 63.8 kg Body Mass Index (BMI) 24.9 Physical Exam Narrative General: Alert, oriented, no apparent distress HEENT: Atraumatic, normocephalic Eyes: Anicteric, normal conjunctiva, extraocular movements grossly intact Neck: Supple Respiratory: No overt wheezes or rhonchi, normal respiratory effort Cardiovascular: Low-grade sinus tachycardia GI: A little bit diffusely tender but no rebound, guarding, rigidity, little distended Extremities: Trace bilateral lower extremity edema Musculoskeletal: Moving all extremities Neuro: No overt focal neurological deficits Skin: No rashes appreciated Psych: Cooperative Results Lab / Micro Data 02/11/25 16:20 02/11/25 16:20 Labs: Laboratory Results - last 24 hr 02/11/25 16:20: WBC 5.6, RBC 3.89 L, Hgb 12.0, Hct 37.0, MCV 95.1, MCH 30.8, MCHC 32.4, RDW Std Deviation 58.0 H, RDW Coeff of Juan David 16.8 H, Plt Count 191, MPV8.7, Immature Gran % (Auto) 0.400, Neut % (Auto) 71.5 H, Lymph % (Auto) 16.0 L, Green % (Auto) 11.7 H, Eos % (Auto) 0.0, Baso % (Auto) 0.4, Absolute Neuts (auto)4.0, Absolute Lymphs (auto) 0.90, Nucleated RBC % 0, Sodium 138, Potassium 3.1 L, Chloride 100, Carbon Dioxide 26.7, Anion Gap 11, BUN 15, Creatinine 0.97, Estim Creat Clear Calc 46.45 L, Est GFR (MDRD) Non-Af 62, BUN/Creatinine Ratio 15.3, Glucose 105 H, Calcium 8.3, Magnesium 2.2, Total Bilirubin 0.31, AST 23, ALT 21, Alkaline Phosphatase 87, Total Protein 5.2 L, Albumin 3.1 L,Globulin 2.1 L, Albumin/Globulin Ratio 1.5, Lipase 10 L 02/11/25 16:40: Urine Color Yellow, Urine Clarity Clear, Urine pH 7.0, Ur Specific [place] 1.010, Urine Protein 30 H, Urine Glucose (UA) Normal, Urine Ketones 5 H, Urine Occult Blood Negative, Urine Nitrite Negative, Urine Bilirubin Negative, Urine Urobilinogen Normal, Ur Leukocyte Esterase 25 H, Ur ineRBC 0 SEEN, Urine WBC 0-5 SEEN, Ur Squamous Epith Cells 0 SEEN, Urine Bacteria 2+, Urine Mucus 1+ Imaging Radiology Impression Abdomen/Pelvis CT 02/11/25 15:13 IMPRESSION: Findings concerning for a persistent small-bowel obstruction. Additional findings are unchanged when compared to the prior study. Reading Location: [facility] Assessment & Plan Assessment/Plan (1) Partial small bowel obstruction: PLAN: Plan # Small bowel obstruction - Abdominal/pelvis CT suggestive of persistent small bowel obstruction - ED physician discussed with on-call surgeon, NG tube and enema recommended andthey will see in consultation -Surgery consult -NG tube placed in ED -Enema ordered -N.p.o. 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 Chance, last seen in office 01/23/2025 #Hx COPD -Continue home inhalers -Incentive spirometer #Depression/anxiety - Patient n.p.o. with NG tube, resume home medications once patient able to tolerate p.o. #GERD -Continue PPI but will convert to IV given n.p.o. status and NG tube #DVT ppx: SCDs Ami Magdaleno MD Charges/Coding Visit Charges Inpatient E&M: 59160 Init Hosp L2 02/11/25 1834 Cosigner Signature (if applicable): CC: Dr. Ami Magdaleno MD; TORIBIO CASTILLO~ Signed [facility]07-27-[address] [facility] Medical Records Department [address] [place] [address] Emergency Department Summary 02/11/25 MR#: [id number] Acct: [id number] Name: KARINA FERNANDO Rep #:[id number] : 1950 74 From: Tay Dumont MD PCP: TORIBIO CASTILLO Status:REG ER Location: ED HPI HPI - GI History of Present Illness Chief Complaint: Abd Pain Narrative Narrative: 74-year-old female past medical history of small cell lung carcinoma with metastasis to adrenal gland and heart presents with nausea and vomiting, abdominal pain and bloating and constipation that started approximately 2 weeks ago. She states she takes a total of 10 mg of oxycodone a few times a day. Shewill usually take half a tablet that half an hour later take the other half. Over the last 2 weeks, she has had problems with constipation to the point whereon Wednesday, 4 days ago, she had to disimpact herself. She has been taking Dulcolax as well. She started to have bowel movements again and feel improved but a day and a half later, she started experiencing abdominal bloating. She has vomited 3 or 4 times without hematemesis in the last 24 hours. She has diffuse abdominal pain and abdominal distention. Past abdominal surgery includes appendectomy at 17 years old. She denies any exacerbating or alleviating factors. No fevers or chills. PFSH PFS Medical History Delayed surgical wound healing Constipation [...] 2.5 mg/3 mL 2.5 mg inhalation PRN ID N 09/22/24 11/16/24 History (0.083 %) solution [...] .x4 10/1811/16/24 History mcg-4.5 mcg/actuation aerosol inhaler buspirone 10 mg tablet 10 mg PO TID PRN anxiety 11/16/24 History pantoprazole 40 mg tablet,delayed 40 mg PO QDAY 11/16/24 History release docusate sodium 100 mg capsule 200 mg PO QDAY 11/17/24 Unknown History (Dulcolax Stool Softener (docusate)) ferrous sulfate 325 mg (65 mg 325 mg PO QDAY 11/17/24 Unknown History iron) tablet,delayed release trazodone 100 mg tablet 150 mg PO QHS 11/17/24 Unkno wn History valacyclovir 500 mg tablet 500 mg PO QDAY PRN shingles 11/17/24 Unknown History oxycodone 10 mg tablet 10 mg PO BID PRN pain Unknown History cyanocobalamin (vitamin B-12) 50 50 mcg PO DAILY 02/11 Unknown History mcg tablet durvalumab 50 mg/mL intravenous IV Q14D 02/11/25 Unkno wn History solution famotidine 10 mg tablet 10 mg PO BID 02/11/25 Unknow n History furosemide 20 mg tablet 20 mg PO DAILY PRN swelling 02/11/25 Unknown History potassium chloride 20 mEq 20 meq PO DAILY 02/11/25 Unk nown History tablet,extended release(part/cryst) zinc citrate, zinc oxide 50 mg 50 mg PO DAILY 02/11/25 Unknown History tablet Allergy/AdvReac Type Severity Reaction Status Date / Time calcipotriene Allergy Severe Rash Verified 02/11/25 14:51 Opioids - Morphine Analogues Allergy Severe Hives Verified 02/11/25 14:51 alendronate sodium (From Allergy Pain in Verified 02/11/25 14:51 Fosamax) joints cefaclor (From Ceclor) Allergy Hives Verified 02/11/25 14:51 ezetimibe Allergy Other Verified 02/11/25 14:51 Penicillins Allergy Hives Verified 02/11/25 14:51 tramadol HCl (From Ultram) Allergy Hives Verified 02/11/25 14:51 hydrochlorothiazide AdvReac Unknown reaction Verified 02/11/25 14:51 erythromycin base AdvReac Nausea Verified 02/11/25 14:51 Family History Mother Leukemia Osteoporosis Thyroid disorder [...] intake: never ROS ROS ED ROS Narrative Review of systems positive for abdominal pain and bloating. Positive constipation. 2 weeks of abdominal pain and constipation minorly improved 4 days ago. She states that she has been nauseated sincethe beginning of January, over the last 3 or 4 weeks. Last chemotherapy 5 weeks ago but she is currently on immunotherapy. She has something for nausea at home but states she vomited back up today. EXAM Physical Exam Narrative Exam Narrative: Afebrile. Vital signs noted. Nontoxic-appearing. Cardiovascular examination reveals mild tachycardia. Lungs are clear to auscultation bilaterally. Abdomenis diffusely tender with slightly diminished bowel sounds. Positive distention. Neurological examination nonfocal, nonlateralizing. Const Vital Signs: 02/11/25 14:48 02/11/25 14:51 02/11/25 17:00 Temperature 98.7 F 98.7 F 98.7 F Temperature Source Oral Oral Oral Pulse Rate 124 H 124 H 107 H Respiratory Rate 22 H 22 H 13 Blood Pressure 119/84 H 119/84 H 128/85 H Blood Pressure Mean 95 95 99 Pulse Ox 97 97 92 Oxygen Delivery Method Nasal Cannula Room Air Nasal Cannula Oxygen Flow Rate (L/min) 3 3 MDM MDM MDM Narrative Medical decision making narrative: The differential diagnosis includes but not limited to opiate bowel/constipationversus nonspecific abdominal pain versus bowel obstruction versus pancreatitis versus colitis. I have lower clinical suspicion for pancreatitis and colitis based on the history and physical. Comprehensive workup was pursued. She declined any opiate analgesics but she was administered ondansetron for nausea. I do feel CT imaging is indicated to help rule out bowel obstruction. I reviewed her laboratory work and she has a normal white count of 5.6 with hemoglobin 12.0, hematocrit 37.0, platelet count 191. Potassium slightly low at3.1 on CMP so I will add a magnesium and this will be replaced intravenously. BUN 15 and creatinine normal at 0.97. Glucose 105 with a normal anion gap of 11. LFTs are grossly unremarkable. Lipase low at 10. When compared to prior labs was also10. Urinalysis negative for infection. 0-5 WBCs. I do not feel that antibiotics are indicated. On review of the CT scan, she has dilated bowel loops. I reviewed the radiologyreport and there is concern for partial small bowel obstructions. She did have a prior study earlier in the month which showed dilated loops of bowel, but no evidence of acute obstruction. However, on review of today's radiology report, there is concern for partial small bowel obstruction. I discussed the patient with general surgery, Dr. Boyce who would like an NG tube placed and the patient given an enema as well, and requested admit to medicine. I discussed patient with Dr. Ami Magdaleno for admission. Disposition is admit to the medical surgical floor in stable condition. History & Record Review Discussion w/independent historian: Patient and Family Additional record(s) reviewed:: Prior outpatient record (CT scan with dilated bowel loops but no findings consistent with obstruction), Prior ED visit and Prior labs Lab Data Attestation: I reviewed the patient's lab results. Labs: Laboratory Results - last 24 hr 02/11/25 02/11/25 16:20 16:40 WBC 5.6 RBC 3.89 L Hgb 12.0 Hct 37.0 MCV 95.1 MCH 30.8 MCHC 32.4 RDW Std Deviation 58.0 H RDW Coeff of Juan David 16.8 H Plt Count 191 MPV 8.7 Immature Gran % (Auto) 0.400 Neut % (Auto) 71.5 H Lymph % (Auto) 16.0 L Green % (Auto) 11.7 H Eos % (Auto) 0.0 Baso % (Auto) 0.4 Absolute Neuts (auto) 4.0 Absolute Lymphs (auto) 0.90 Nucleated RBC % 0 Sodium 138 Potassium 3.1 L Chloride 100 Carbon Dioxide 26.7 Anion Gap 11 BUN 15 Creatinine 0.97 Estim Creat Clear Calc 46.45 L Est GFR (MDRD) Non-Af 62 BUN/Creatinine Ratio 15.3 Glucose 105 H Calcium 8.3 Magnesium 2.2 Total Bilirubin 0.31 AST 23 ALT 21 Alkaline Phosphatase 87 Total Protein 5.2 L Albumin 3.1 L Globulin 2.1 L Albumin/Globulin Ratio 1.5 Lipase 10 L Urine Color Yellow Urine Clarity Clear Urine pH 7.0 Ur Specific [place] 1.010 Urine Protein 30 H Urine Glucose (UA) Normal Urine Ketones 5 H Urine Occult Blood Negative Urine Nitrite Negative Urine Bilirubin Negative Urine Urobilinogen Normal Ur Leukocyte Esterase 25 H Urine RBC 0 SEEN Urine WBC 0-5 SEEN Ur Squamous Epith Cells 0 SEEN Urine Bacteria 2+ Urine Mucus 1+ Radiography Diagnostic Testing: Clinical Impression(s) from Imaging Studies Abdomen/Pelvis CT 02/11/25 15:13 IMPRESSION: Findings concerning for a persistent small-bowel obstruction. Additional findings are unchanged when compared to the prior study. Reading Location: [facility] Management Discussion w/another healthcare provider: Hospitalist (Dr. Magdaleno) and Director Of Acquisitions (General surgery,Dr. Boyce) Discharge Plan Dx/Rx/DC Orders Clinical Impression: Partial small bowel obstruction, Small cell lung cancer, Hypokalemia, Abdominalpain Disposition Disposition: Acute Care Hospital [facility] What to do if you have Problems For any increased pain, shortness of breath, bleeding, nausea or vomiting, chestpain, or any unexpected problems, contact your Primary Care Provider. Call [facility] ([phone]) or report tothe closest Emergency Room. Call 911 if necessary. 02/11/25 1736 Cosigner Signature (if applicable): CC: TORIBIO CASTILLO ~ Signed [facility]07-27-2025 Radiology Diagnostic study note [facility] Imaging Services [address] [place] [address] Abdomen/Pelvis W IV Cont ONLY MR#: [id number] Acct: [id number] Name: KARINA FERNANDO Rep #: [id number] : 1950 F 74 From: Scar Keen MD PCP: TORIBIO CASTILLO Status: REG ER Study:Abdomen/Pelvis W IV Cont ONLY Date of E xam: 02/11/25 Exam# [id number] Ordering Dr: Tay Dumont MD PROCEDURE: ABDOMEN/PELVIS W IV CONT ONLY 02/11/2025 REASON FOR EXAM: PAIN, BLOATING TECHNIQUE: ABDOMEN/PELVIS W IV CONT ONLY Coronal and Sagittal reconstruction series were provided. CONTRAST: Isovue 370 VOLUME: 75 mL One or more dose reduction techniques were used (e.g., Automated exposure control, adjustment of the mA and/or kV according to patient size, use of iterative reconstruction technique. RADIATION DOSE SUMMARY: CTDlvol: 35 mGy DLP: 883 mGycm COMPARISON: 01/28/2025 FINDINGS: Prominent hiatal hernia again noted. No liver masses are seen. The spleen is normal. Again noted are small adrenal nodules. Hypodense lesion in the right lobe of the liver again seen. No pancreatic inflammation. Prior lumbar surgery. No solid renal mass. Normal abdominal aorta. On the current study, there is no free-fluid or free air. As on the prior study, there is moderate small bowel distention with reduced caliber of distal small bowel loops compatible with a persistent at least partial small bowel obstruction without perforation and without abscess. CT/Abdomen/Pelvis W IV Cont ONLY IMPRESSION: Findings concerning for a persistent small-bowel obstruction. Additional findings are unchanged when compared to the prior study. Reading Location: [facility] CC: Dr. Tay Dumont MD; TORIBIO CASTILLO ~ Platform Architect: Signed [facility]07-27-2025 Discharge summary Author Tay Dumont [facility] Note Date/Time February 11, 2025 5:[address] [facility] Medical Records Department [address] [place] [address] Emergency Department Summary 02/11/25 MR#: [id number] Acct: [id number] Name: KARINA FERNANDO Rep #:[id number] : 1950 74 From: Tay Dumont MD PCP: TORIBIO CASTILLO Status:REG ER Location: ED HPI HPI - GI History of Present Illness Chief Complaint: Abd Pain Narrative Narrative: 74-year-old female past medical history of small cell lung carcinoma with metastasis to adrenal gland and heart presents with nausea and vomiting, abdominal pain and bloating and constipation that started approximately 2 weeks ago. She states she takes a total of 10 mg of oxycodone a few times a day. Shewill usually take half a tablet that half an hour later take the other half. Over the last 2 weeks, she has had problems with constipation to the point whereon Wednesday, 4 days ago, she had to disimpact herself. She has been taking Dulcolax as well. She started to have bowel movements again and feel improved but a day and a half later, she started experiencing abdominal bloating. She has vomited 3 or 4 times without hematemesis in the last 24 hours. She has diffuse abdominal pain and abdominal distention. Past abdominal surgery includes appendectomy at 17 years old. She denies any exacerbating or alleviating factors. No fevers or chills. [facility] Medical History Delayed surgical wound healing [...] mg tablet 10 mg PO DAILY 08/24/19 04/ History multivitamin 1 tab PO QAM 09/18/24 History albuterol sulfate 2.5 mg/3 mL 2.5 mg inhalation PRN ID N 09/22/24 11/16/24 History (0.083 %) solution [...] .x4 10/1811/16/24 History mcg-4.5 mcg/actuation aerosol inhaler buspirone 10 mg tablet 10 mg PO TID PRN anxiety 11/16/24 History pantoprazole 40 mg tablet,delayed 40 mg PO QDAY 11/16/24 History release docusate sodium 100 mg capsule 200 mg PO QDAY 11/17/24 Unknown History (Dulcolax Stool Softener (docusate)) ferrous sulfate 325 mg (65 mg 325 mg PO QDAY 11/17/24 Unknown History iron) tablet,delayed release trazodone 100 mg tablet 150 mg PO QHS 11/17/24 Unkno wn History valacyclovir 500 mg tablet 500 mg PO QDAY PRN shingles 11/17/24 Unknown History oxycodone 10 mg tablet 10 mg PO BID PRN pain Unknown History cyanocobalamin (vitamin B-12) 50 50 mcg PO DAILY 02/11 Unknown History mcg tablet durvalumab 50 mg/mL intravenous IV Q14D 02/11/25 Unkno wn History solution famotidine 10 mg tablet 10 mg PO BID 02/11/25 Unknow n History furosemide 20 mg tablet 20 mg PO DAILY PRN swelling 02/11/25 Unknown History potassium chloride 20 mEq 20 meq PO DAILY 02/11/25 Unk nown History tablet,extended release(part/cryst) zinc citrate, zinc oxide 50 mg 50 mg PO DAILY 02/11/25 Unknown History tablet Allergy/AdvReac Type Severity Reaction Status Date / Time calcipotriene Allergy Severe Rash Verified 02/11/25 14:51 Opioids - Morphine Analogues Allergy Severe Hives Verified 02/11/25 14:51 alendronate sodium (From Allergy Pain in Verified 02/11/25 14:51 Fosamax) joints cefaclor (From Ceclor) Allergy Hives Verified 02/11/25 14:51 ezetimibe Allergy Other Verified 02/11/25 14:51 Penicillins Allergy Hives Verified 02/11/25 14:51 tramadol HCl (From Ultra) Allergy Hives Verified 02/11/25 14:51 hydrochlorothiazide AdvReac Unknown reaction Verified 02/11/25 14:51 erythromycin base AdvReac Nausea Verified 02/11/25 14:51 Family History Mother Leukemia Osteoporosis Thyroid disorder [...] intake: never ROS ROS ED ROS Narrative Review of systems positive for abdominal pain and bloating. Positive constipation. 2 weeks of abdominal pain and constipation minorly improved 4 days ago. She states that she has been nauseated since the beginning of January, over the last 3 or 4 weeks. Last chemotherapy 5 weeks ago but she is currently on immunotherapy. She has something for nausea at home but states she vomited back up today. EXAM Physical Exam Narrative Exam Narrative: Afebrile. Vital signs noted. Nontoxic-appearing. Cardiovascular examination reveals mild tachycardia. Lungs are clear to auscultation bilaterally. Abdomenis diffusely tender with slightly diminished bowel sounds. Positive distention. Neurological examination nonfocal, nonlateralizing. Const Vital Signs: 02/11/25 14:48 02/11/25 14:51 02/11/25 17:00 Temperature 98.7 F 98.7 F 98.7 F Temperature Source Oral Oral Oral Pulse Rate 124 H 124 H 107 H Respiratory Rate 22 H 22 H 13 Blood Pressure 119/84 H 119/84 H 128/85 H Blood Pressure Mean 95 95 99 Pulse Ox 97 97 92 Oxygen Delivery Method Nasal Cannula Room Air Nasal Cannula Oxygen Flow Rate (L/min) 3 3 MDM MDM MDM Narrative Medical decision making narrative: The differential diagnosis includes but not limited to opiate bowel/constipationversus nonspecific abdominal pain versus bowel obstruction versus pancreatitis versus colitis. I have lower clinical suspicion for pancreatitis and colitis based on the history and physical. Comprehensive workup was pursued. She declined any opiate analgesics but she was administered ondansetron for nausea. I do feel CT imaging is indicated to help rule out bowel obstruction. I reviewed her laboratory work and she has a normal white count of 5.6 with hemoglobin 12.0, hematocrit 37.0, platelet count 191. Potassium slightly low at3.1 on CMP so I will add a magnesium and this will be replaced intravenously. BUN 15 and creatinine normal at 0.97. Glucose 105 with a normal anion gap of 11. LFTs are grossly unremarkable. Lipase low at 10. When compared to prior labs was also 10. Urinalysis negative for infection. 0-5 WBCs. I do not feel that antibiotics are indicated. On review of the CT scan, she has dilated bowel loops. I reviewed the radiologyreport and there is concern for partial small bowel obstructions. She did have a prior study earlier in the month which showed dilated loops of bowel, but no evidence of acute obstruction. However, on review of today's radiology report, there is concern for partial small bowel obstruction. I discussed the patient with general surgery, Dr. Boyce who would like an NG tube placed and the patient given an enema as well, and requested admit to medicine. I discussed patient with Dr. Ami Magdaleno for admission. Disposition is admit to the medical surgical floor in stable condition. History & Record Review Discussion w/independent historian: Patient and Family Additional record(s) reviewed:: Prior outpatient record (CT scan with dilated bowel loops but no findings consistent with obstruction), Prior ED visit and Prior labs Lab Data Attestation: I reviewed the patient's lab results. Labs: Laboratory Results - last 24 hr 02/11/25 02/11/25 16:20 16:40 WBC 5.6 RBC 3.89 L Hgb 12.0 Hct 37.0 MCV 95.1 MCH 30.8 MCHC 32.4 RDW Std Deviation 58.0 H RDW Coeff of Juan David 16.8 H Plt Count 191 MPV 8.7 Immature Gran % (Auto) 0.400 Neut % (Auto) 71.5 H Lymph % (Auto) 16.0 L Green % (Auto) 11.7 H Eos % (Auto) 0.0 Baso % (Auto) 0.4 Absolute Neuts (auto) 4.0 Absolute Lymphs (auto) 0.90 Nucleated RBC % 0 Sodium 138 Potassium 3.1 L Chloride 100 Carbon Dioxide 26.7 Anion Gap 11 BUN 15 Creatinine 0.97 Estim Creat Clear Calc 46.45 L Est GFR (MDRD) Non-Af 62 BUN/Creatinine Ratio 15.3 Glucose 105 H Calcium 8.3 Magnesium 2.2 Total Bilirubin 0.31 AST 23 ALT 21 Alkaline Phosphatase 87 Total Protein 5.2 L Albumin 3.1 L Globulin 2.1 L Albumin/Globulin Ratio 1.5 Lipase 10 L Urine Color Yellow Urine Clarity Clear Urine pH 7.0 Ur Specific [place] 1.010 Urine Protein 30 H Urine Glucose (UA) Normal Urine Ketones 5 H Urine Occult Blood Negative Urine Nitrite Negative Urine Bilirubin Negative Urine Urobilinogen Normal Ur Leukocyte Esterase 25 H Urine RBC 0 SEEN Urine WBC 0-5 SEEN Ur Squamous Epith Cells 0 SEEN Urine Bacteria 2+ Urine Mucus 1+ Radiography Diagnostic Testing: Clinical Impression(s) from Imaging Studies Abdomen/Pelvis CT 02/11/25 15:13 IMPRESSION: Findings concerning for a persistent small-bowel obstruction. Additional findings are unchanged when compared to the prior study. Reading Location[facility] Management Discussion w/another healthcare provider: Hospitalist (Dr. Magdaleno) and Director Of Acquisitions (General surgery, Dr. Boyce) Discharge Plan Dx/Rx/DC Orders Clinical Impression: Partial small bowel obstruction, Small cell lung cancer, Hypokalemia, Abdominalpain Disposition Disposition: Acute Care Hospital [facility] What to do if you have Problems For any increased pain, shortness of breath, bleeding, nausea or vomiting, chestpain, or any unexpected problems, contact your Primary Care Provider. Call [facility] ([phone]) or report to the closest Emergency Room. Call 911 if necessary. 02/11/25 1736 <Electronically signed by Tay Dumont MD> Cosigner Signature (if applicable): CC: TORIBIO CASTILLO ~ Signed [facility] Work Phone: 1(332) 923-869807-13-2025 Discharge summary [facility] Medical Records Department [address] [place] [address] Emergency Department Summary 01/28/25 MR#: [id number] Acct: [id number] Name: KARINA FERNANDO Rep #:[id number] : 1950 74 From: Bernarda VANCE PCP: TORIBIO CASTILLO Status:REG ER Location: ED HPI History of Present Illness Chief Complaint: Chest Pain Narrative Narrative: Patient presenting today with left-sided chest pain radiating to her left jaw and down her left armshe has had over the past 3 days. [...] chills, coughing, nausea, vomiting, and bowel changes. [facility] Medical History Delayed surgical wound healing [...] 2.5 mg/3 mL 2.5 mg inhalation PRN ID N 09/22/24 11/16/24 History (0.083 %) solution [...] 30 alcohol intake: never ROS ROS ED Constitutional Constitutional ED: Denies chills or fever(s) Cardiovascular Cardiovascular: Reports chest pain Respiratory/Chest Respiratory/Chest: Reports dyspnea Gastrointestinal Gastrointestinal: Reports abdominal pain; Denies diarrhea, nausea or vomiting Genitourinary Genitourinary ED: Denies dysuria, hematuria or urinary urgency Musculoskeletal Musculoskeletal: Denies arthralgias or myalgias Integumentary Denies rash Neurologic Neurologic: Denies weakness EXAM Physical Exam Const Vital Signs: 01/28/25 17:44 [...] rashes or lesions noted and no wounds Physical Exam Const Vital Signs: 01/28/25 17:44 [...] Room Air Oxygen Flow Rate (L/min) 3 MDM MDM MDM Narrative Medical decision making narrative: Patient presenting today with left-sided chest pain radiating to the left jaw and left arm that hasbeen ongoing over the past few days. She [...] movement this morning, recommended she start taking MiraLAXwhich she has at home. Chest CTA negative [...] % (Auto) 58.1 Lymph % (Auto) 24.7 Green % (Auto) 16.2 H Eos % (Auto) [...] Clarity Clear Urine pH 6.0 Ur Specific [place] 1.020 Urine Protein 15 H Urine Glucose (UA) Normal Urine Ketones Negative Urine Occult Blood Negative Urine Nitrite Negative Urine Bilirubin Negative Urine Urobilinogen Normal Ur Leukocyte Esterase Negative Radiography Diagnostic Testing: Clinical Impression(s) from Imaging Studies Abdomen/Pelvis CT 01/28/25 18:52 IMPRESSION: 1. Prominent fluid-filled loops of small bowel, without additional findings to suggest obstruction.There is scattered fecalization within the small bowel, suggestive of the clinical diagnosis of constipation. 2. Additional findings as detailed above, unchanged from CT performed 01/16/2025. Reading Location: [id number] Chest CTA 01/28/25 18:52 IMPRESSION: 1. No pulmonary embolism or acute cardiopulmonary abnormality. 2. Unchanged findings from CT performed on 01/16/2025, as detailed above. Reading Location: [id number] EKG Initial EKG: Comments: Bpm, normal sinus rhythm, no ST elevation, interpreted by attending ED physician ISAAC Lab Data Labs: Laboratory Results - last 24 hr 01/28/25 01/28/25 19:30 19:33 WBC 5.3 RBC 3.30 L Hgb 10.2 L Hct 31.2 L MCV 94.5 MCH 30.9 MCHC 32.7 RDW Std Deviation 76.0 H RDW Coeff of Juan David 21.9 H Plt Count 439 MPV 8.6 Immature Gran % (Auto) 0.400 Neut % (Auto) 58.1 Lymph % (Auto) 24.7 Green % (Auto) 16.2 H Eos % (Auto) [...] Clarity Clear Urine pH 6.0 Ur Specific [place] 1.020 Urine Protein 15 H Urine Glucose (UA) Normal Urine Ketones Negative Urine Occult Blood Negative Urine Nitrite Negative Urine Bilirubin Negative Urine Urobilinogen Normal Ur Leukocyte Esterase Negative Radiography Diagnostic Testing: Clinical Impression(s) from Imaging Studies Abdomen/Pelvis CT 01/28/25 18:52 IMPRESSION: 1. Prominent fluid-filled loops of small bowel, without additional findings to suggest obstruction.There is scattered fecalization within the small bowel, suggestive of the clinical diagnosis of constipation. 2. Additional findings as detailed above, unchanged from CT performed 01/16/2025. Reading Location: [id number] Chest CTA 01/28/25 18:52 IMPRESSION: 1. No pulmonary embolism or acute cardiopulmonary abnormality. 2. Unchanged findings from CT performed on 01/16/2025, as detailed above. Reading Location: [id number] Treatment and Re-Evaluation :: ED attending note: I evaluated the patient in conjunction with the MANJINDER. I agree with his/her statements and above findings. I have personally performed a face to face assessment of the patient and have reviewed the APPNote. I performed a substantive portion of the visit including all aspects of the following. I bharath florez saw the patient performed chart review, physical exam, reviewed labs,imaging (if obtained), and formulated a treatment and management plan. This note was generated with [employer] dictation software. It may contain incorrectwords, spelling, and punctuation that were not noted in review of the chart prior to signing. Discharge Plan Triage Chief Complaint: Chest Pain ED Midlevel Provider: Bernarda Win ED Provider: Georgi Barroso Dx/Rx/DC Orders Clinical Impression: Cellulitis, Localized swelling of both lower legs, Hx of metastatic neoplastic disease, Chest pain,Constipation, Abdominal pain Instructions: ED Cellulitis, ED Chest [...] mg PO QHS Primary Care Provider: JOSELIN MAURER Referrals: JOSELIN MAURER CRNP [Primary Care Provider] - 5-7 Days Activity Restrictions/Additional Instructions: Close follow-up with your PCP return for any worsening symptoms or other concerns. Print Language: Macedonian Disposition Disposition: Home, Self Care What to do if you have Problems For any increased pain, shortness of breath, bleeding, nausea or vomiting, chestpain, or any unexpected problems, contact your Primary Care Provider. Call [facility] ([phone]) or report tothe closest Emergency Room. Call 911 if necessary. 01/28/252158 Cosigner Signature (if applicable): 01/28/252216 CC: TORIBIO CASTILLO ~ Signed [facility]07-13-2025 Radiology Diagnostic study note [facility] Imaging Services [address] [place], [place] [address] CTA Chest W/WO Contrast MR#: [id number] Acct: [id number] Name: SYLVIAKARINA Hans Rep #: [id number] : 1950 F 74 From: Farhana Amezquita MD PCP: TORIBIO CASTILLO Status: REG ER Study:CTA Chest W/WO Contrast Date of Exam: 01/28/25 Exam# [id number] Ordering Dr: Bernarda Mckenna PROCEDURE: CTA CHEST [...] on 01/16/2025, as detailed above. Reading Location: [id number] CC: TORIBIO CASTILLO; RAJIV Meza ~ Platform Architect: Signed [facility]07-13-2025 Radiology Diagnostic study note [facility] Imaging Services [address] [place] [address] Abdomen/Pelvis W IV Cont ONLY MR#: [id number] Acct: [id number] Name: KARINA FERNANDO Rep #: [id number] : 1950 F 74 From: Farhana Amezquita MD PCP: TORIBIO CASTILLO Status: REG ER Study:Abdomen/Pelvis W IV Cont ONLY Date of E xam: 01/28/25 Exam# [id number] Ordering Dr: Bernarda Mckenna PROCEDURE: ABDOMEN/PELVIS W [...] small bowel, without additional findings to suggest obstruction.There is scattered fecalization within the small bowel, suggestive of the clinical diagnosis of constipation. 2. Additional findings as detailed above, unchanged from CT performed 01/16/2025. Reading Location: [id number] CC: TORIBIO CASTILLO; RAJIV Meza ~ Platform Architect: Signed [facility]07-13-2025 Discharge summary Author Bernarda Win [facility] Note Date/Time January 28, 2025 10:[address] [facility] Medical Records Department [address] [place] [address] Emergency Department Summary 01/28/25 MR#: [id number] Acct: [id number] Name: KARINA FERNANDO Rep #:[id number] : 1950 74 From: Bernarda VANCE PCP: [...] chills, coughing, nausea, vomiting, and bowel changes. [facility] <RAJIV Meza - Last Filed: 01/28/25 21:59> [facility] Medical History Delayed surgical wound [...] mg tablet 10 mg PO DAILY 08/24/19 04/ History multivitamin 1 tab PO QAM 09/18/24 History albuterol sulfate 2.5 mg/3 mL 2.5 mg inhalation PRN ID N 09/22/24 11/16/24 History (0.083 %) solution [...] Hives Verified 01/28/25 17:44 tramadol HCl (From Ultram) Allergy Hives Verified 01/28/25 17:44 hydrochlorothiazide AdvReac [...] lesions noted and no wounds <Dr. Georgi Barroso, DO - Last Filed: 01/28/25 21:59> Physical [...] Room Air Oxygen Flow Rate (L/min) 3 [facility] <RAJIV Meza - Last Filed: 01/28/25 21:59> [facility] Narrative Medical decision making narrative: Patient presenting [...] % (Auto) 58.1 Lymph % (Auto) 24.7 Green % (Auto) 16.2 H Eos % (Auto) [...] Clarity Clear Urine pH 6.0 Ur Specific [place] 1.020 Urine Protein 15 H Urine Glucose [...] unchanged from CT performed 01/16/2025. Reading Location: [id number] Chest CTA 01/28/25 18:52 IMPRESSION: 1. No pulmonary embolism or acute cardiopulmonary abnormality. 2. Unchanged findings from CT performed on 01/16/2025, as detailed above. Reading Location: [facility] EKG Initial EKG: Comments: Bpm, normal sinus rhythm, no ST elevation, interpreted by attending ED physician <Dr. Georgi Barroso, DO - Last Filed: 01/28/25 21:59> [facility] Lab Data Labs: Laboratory Results - last 24 hr 01/28/25 01/28/25 19:30 19:33 WBC 5.3 RBC 3.30 L Hgb 10.2 L Hct 31.2 L MCV 94.5 MCH 30.9 MCHC 32.7 RDW Std Deviation 76.0 H RDW Coeff of Juan David 21.9 H Plt Count 439 MPV 8.6 Immature Gran % (Auto) 0.400 Neut % (Auto) 58.1 Lymph % (Auto) 24.7 Green % (Auto) 16.2 H Eos % (Auto) [...] Clarity Clear Urine pH 6.0 Ur Specific [place] 1.020 Urine Protein 15 H Urine Glucose [...] evaluated the patient in conjunction with the MANJINDER. I agree with his/her statements and above findings. I have personally performed a face to face assessment of the patient and have reviewed the MANJINDER Note. I performed a substantive portion of the visit including all aspects of the following. I personally saw the patient performed chart review, physical exam, reviewed labs,imaging (if obtained), and formulated a treatment and management plan. This note was generated with [employer] dictation software. It may contain incorrectwords, spelling, [...] mg PO QHS Primary Care Provider: JOSELIN MAURER Referrals: JOSELIN MAURER CRNP [Primary Care Provider] - 5-7 Days Activity Restrictions/Additional Instructions: Close follow-up with your PCP return for any worsening symptoms or other concerns. Print Language: Macedonian Disposition Disposition: Home, Self Care What to do if you have Problems For any increased pain, shortness of breath, bleeding, nausea or vomiting, chestpain, or any unexpected problems, contact your Primary Care Provider. Call [facility] ([phone]) or report to the closest Emergency Room. Call 911 if necessary. 01/28/252158 <Electronically signed by Bernarda VANCE> Cosigner Signature (if applicable): 01/28/252216 <Electronically signed by Georgi Barroso DO> CC: TORIBIO CASTILLO ~ Signed [facility] Work Phone: 1(241) 292-301907-01-2025 Radiology Diagnostic study note [facility] Imaging Services [address], [place] [address] CT Chest, Abd, Pel w/Contrast MR#: [id number] Acct: [id number] Name: KARINA FERNANDO Rep #: [id number] : 1950 F 74 From: Yosef Moncada MD PCP: Dr. Tu Hector, DO Status: REG CLI Study:CT Chest, Abd, Pel w/Contrast Date of E xam: 01/16/25 Exam# [id number] Ordering Dr: Anayeli Stern TRUCKING SUPERVISOR TRUCKING SUPERVISOR-C PROCEDURE: CT CHEST, ABD, PEL W/CONTRAST 01/16/2025 [...] 6. Other findings as noted. Reading Location: [id number] CC: HOPE Win; Dr. Tu Hector, DO ~ Platform Architect: Signed [facility] Work Phone: 1(454) 702-131106-17-2025 [facility] [address] [place] [address] OFFICE VISIT Date of Service: 01/02/25 0955 MR#: [id number] Acct: [id number] Name: KARINA FERNANDO Rep #: [id number] : 1950 From: Alis gilliam MD Age/Sex: 74/F Location: [facility] Status: Signed HPI Subjective Date of Service [...] Carboplatin, etoposide and durvalumab October 31, 2024. [facility] Medical History Delayed surgical wound [...] canula Oxygen Flow Rate (L/min) 3 Intake Tube Backer Required: No Accompanied by: Self Is patient [...] 2.5 mg/3 mL 2.5 mg inhalation PRN ID N 09/22/24 01/02/25 History (0.083 %) solution [...] no focal motor deficits Coordination / Balance: ldxtly-id-jtuo test normal Speech: speech normal Gait (Neuro): [...] impression and plan discussed Alis Chance MD Turning Lathe Tender, [facility] Divisions of Medical Oncology & Hematology Department of Internal Medicine [place] [address] This note was generated using a voice [...] Cosigner Signature: Date (if applicable) CC: ~ [facility]06-17-2025 Progress note Author Alis Chance [facility] Note Date/Time January 02, 2025 10:2 0am [facility] [place] [address] OFFICE VISIT Date of Service: 01/02/25 0955 MR#: [id number] Acct: [id number] Name: KARINA FERNANDO Rep #: [id number] : 1950 From: Alis gilliam MD Age/Sex: 74/F Location: [facility] Status: Signed HPI Subjective Date of Service [...] Carboplatin, etoposide and durvalumab October 31, 2024. [facility] Medical History Delayed surgical wound [...] canula Oxygen Flow Rate (L/min) 3 Intake Tube Backer Required: No Accompanied by: Self Is patient [...] 2.5 mg/3 mL 2.5 mg inhalation PRN ID N 09/22/24 01/02/25 History (0.083 %) solution [...] no focal motor deficits Coordination / Balance: bolgna-ua-pkjn test normal Speech: speech normal Gait (Neuro): [...] impression and plan discussed Alis Chance MD Turning Lathe Tender, [facility] Divisions of Medical Oncology & Hematology Department of Internal Medicine [facility] [place] [address] This note was generated using a voice [...] Cosigner Signature: Date (if applicable) CC: ~ [facility] [employer] Work Phone: 1(759) 614-693105-09-2025 Hospital Discharge instructions Patient Education 11/24/2024 14:53:17 [...] wet, you can dry it with a hairspring cutter. You may use acetaminophen or ibuprofen to [...] or as directed by your healthcare provider [phone] [employer] [address] [place] [address]. All rights reserved. This information is not [...] affected hand Decreased movement of the hand [phone] [employer] [address] [place] [address], [place] [address]. All rights reserved. This information is not intended as a substitute for professional medical care. Always follow yourhealthcare professional's instructions. Follow Up Care 11/24/2024 13:54:15 With:BOB POOL MD Address: [address] [place] [phone] When:2-4 days With:TU HECTOR DO Address: [address] [place] [phone] When:2-4 days [facility] 05-09-2025 Emergency department Discharge summary Discharge Instructions Thank you for allowing [facility] to assist you with your healthcare needs. [...] BOB POOL MD When:Within 2-4 days Where:[address] [facility], [place] [address]- [phone] Follow Up with TU HECTOR DO When:Within 2-4 days Where:[address] [place] [phone] Allergies Ceclor Hives Fosamax Swelling / lump [...] wet, you can dry it with a hairspring cutter. You may use acetaminophen or ibuprofen to [...] or as directed by your healthcare provider [phone] [employer] [address] [place] [address]. All rights reserved. This information is not [...] affected hand Decreased movement of the hand 4581-5531 [employer] [address] [place] [address]. All rights reserved. This information is not intended as a substitute for professional medical care. Always follow yourhealthcare professional's instructions. Additional Information VACCINATE! IT SAVES LIVES! Members of the community who have not yet received the COVID-19 vaccine and would like to receive it can visit one of [facility] vaccine clinics. There are many vaccine clinic locations within the [facility]. For locations and available times, please visit [email or web address].[place].gov/. It is important to note that some COVID mobile vaccine clinics are held outdoors and may be canceled in rainy or stormy conditions. To learn more about pediatric vaccinations (ages 5-11), we invite you to visit the [facility] webpage. https://www.[email or web address].org/pages/2484-Isbsn-Szgzcyynhbj-Qdowbtzitl-Xqdug-Uoy stions.htmlTo learn more about the COVID-19 vaccine, we invite you to visit the CDC website for a list of frequently asked questions. https://www.cdc.gov/coronavirus/2019-ncov/vaccines/faq.html [facility] Patient Portal Access Instructions: Stay connected with your healthcare team and access your personal medical information anytime with the [facility] Patient Portal. If you would like a full copy of your medical records please contact the [facility] Medical Records Department Wednesday through Wednesday between 8a.m. and 4:30p.m. Please follow the directions below to access the portal: 1.Access the email account you provided upon registration to the [facility].2.Look for an invitation email from [facility].3.Open the email and access the invitation link: Accept Invitation to [facility]4.Fill in the required abbasi to create your account. Sign into [email or web address] with your username and password that you [...] you will allow to register on the [facility] Patient Portal for access to your information. You can also access the [facility] Patient Portal on the [place]. Simply click on Health Records under [employer] and then click on the playnik logo. HOW TO SAFELY DISPOSE OF PRESCRIPTION [...] Call your local pharmacy or go to http://bit.Bridgevine/7A7Kr2t to find one close to you.3.Make use of household items: Use cat litter or old coffee grounds to dispose medications if other options arenot available. Mix your drugs with these household products, seal them in an airtight container andthrow it into the garbage. Call [facility]: [phone] to be sure your drugs can be [...] aware that I should contact my doctor. 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 November 09, 2024 8:32am 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 November 09, 2024 8:32am 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 November 09, 2024 8:32am Pericardial effusion acute November 17, 2024 11:23am Right atrial mass acute November 11:23am Small cell lung cancer inactive Ma y 2024 11:23am Mediastinal lymphadenopathy chronic November 21, 2024 8:07am Encounter for antineoplastic immunotherapy acute December 12, 2024 8 :07am Encounter for chemotherapy management acute December 12, 2024 8 :07am Mediastinal lymphadenopathy chronic December 12, 2024 8:07am 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 December 12, 2024 8:07am 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 November 172024 8:07am Constipation inactive December 12 8:07am Delayed surgical wound healing inact gema December 12, 2024 8:07am Small cell lung cancer inactive Ma y 2024 8:07am Mediastinal lymphadenopathy chronic January 02, 2025 9:04am 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 January 23, 2025 9:03am 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 January 23, 2025 9:03am Small cell lung cancer inactive Ju ly 2024 9:03am Lung cancer acute February 11 6:01pm Abdominal pain inactive February 11, 2025 6:01pm Constipation inactive February 11, 025 6:01pm Delayed surgical wound healing inact gema February 11, 2025 6:01pm Hypokalemia inactive February 11 6:01pm Partial small bowel obstruction inac tive February 11, 2025 6:01pm Small cell lung cancer inactive Ju ly 2024 6:01pm 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 February 20, 2025 7:55am 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 Aug2024 7:55am Constipation inactive February 20, 2025 7:55am Hypokalemia inactive February 20, 2 025 7:55am Nausea inactive February 20 7:55am Small cell lung cancer inactive 2024 7:55am [facility] Work Phone: 1(539) 210-357504-24-2025 Evaluation note* Diagnosis Onset Date Resolution Status Admit Date Hypokalemia acute November 09, 2 025 8:32am 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 November 09, 2024 8:32am 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 November 09, 2024 8:32am 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 November 09, 2024 8:32am Pericardial effusion acute November 17, 2024 11:23am Right atrial mass acute November 11:23am Small cell lung cancer chronic 2024 11:23am Mediastinal lymphadenopathy chronic November 21, 2024 8:07am Encounter for antineoplastic immunotherapy acute December 12, 2024 8 :07am Encounter for chemotherapy management acute December 12, 2024 8 :07am Mediastinal lymphadenopathy chronic December 12, 2024 8:07am 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 December 12, 2024 8:07am 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 November 172024 8:07am Small cell lung cancer chronic Ma y 2024 8:07am Constipation inactive December 12 8:07am Delayed surgical wound healing inact gema December 12, 2024 8:07am Mediastinal lymphadenopathy chronic January 02, 2025 9:04am 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 January 23, 2025 9:03am 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 January 23, 2025 9:03am Small cell lung cancer chronic Ju ly 2024 9:03am Lung cancer acute February 11 6:01pm Small cell lung cancer chronic Ju ly 2024 6:01pm Abdominal pain inactive February 11, 2025 6:01pm Constipation inactive February 11, 025 6:01pm Delayed surgical wound healing inact gema February 11, 2025 6:01pm Hypokalemia inactive February 11 6:01pm Partial small bowel obstruction inac tive February 11, 2025 6:01pm 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 Miscellaneous Notes* Telephone Encounter - Shante Kirk MA - 11/02/2024 12:40 PM EDT Faxed office note to [facility] * Telephone Encounter - NEGIN Petty CNP - 11/01/2024 5:02 PM EDT Phone call to patient Daughter, ( patient is not able to speak on the phone due to vocal cord paralysis and tumor compression ), 2 weeks ago, her HCTZ was stopped by [facility], due to dehydration and hypotension. She [...] would like to establish with a senior underwriter in [place]. Patient is monitoring her BP at home, and will call her daughter, ( who is at work now) if BP drops. She willcontact the oncology physician assistant to see if she can arrange Cardiology [...] states chemo staff said to call senior underwriter. She is not sure if oncologist or [...] Chemo staff wanted pt to call senior underwriter pt has edema in ankles. documented in this [place] [id number] Telephone encounter Note* Telephone Encounter - NEGIN Petty CNP - 11/01/2024 5:02 PM EDT Phone call to patient Daughter, ( patient is not able to speak on the phone due to vocal cord paralysis and tumor compression ), 2 weeks ago, her HCTZ was stopped by [facility], due to dehydration and hypotension. She [...] would like to establish with a senior underwriter in [place]. Patient is monitoring her BP at home, and will call her daughter, ( who is at work now) if BP drops. She willcontact the oncology physician assistant to see if she can arrange Cardiology to see her tomorrow while at the infusion center. She will keep us updated. [employer] [facility] Phone: 1(948) 937-896804-16-2025 Miscellaneous Notes* Telephone Encounter - NEGIN Petty CNP - 11/01/2024 5:02 PM EDT Phone call to patient Daughter, ( patient is not able to speak on the phone due to vocal cord paralysis and tumor compression ), 2 weeks ago, her HCTZ was stopped by [facility], due to dehydration and hypotension. She [...] would like to establish with a senior underwriter in [place]. Patient is monitoring her BP at home, and will call her daughter, ( who is at work now) if BP drops. She willcontact the oncology physician assistant to see if she can arrange Cardiology [...] states chemo staff said to call senior underwriter. She is not sure if oncologist or [...] Chemo staff wanted pt to call senior underwriter pt has edema in ankles. documented in this encounterSWestern Reserve [id number] Telephone encounter Note* Telephone Encounter - Shante Kirk MA - 11/01/2024 3:44 PM EDT Daughter called back she spoke to oncologist and oncologist is more comfortable if we deal with this. [place] [id number] Telephone encounter Note* Telephone Encounter - Lenore Ambrosio RN - 11/01/2024 1:17 PM EDT I spoke with daughter pt having increase BOWMAN/ up 7 #s/b/l lower extremity edema after having 2 chemo treatments. Daughter states chemo staff said to call senior underwriter. She is not sure if oncologist or his office is aware. I asked her to check with them first regarding the symptoms she is having. The care will be directed by them. She will call back after she makes sure the oncologist is aware. [place] [id number] Telephone encounter Note* Telephone Encounter - Shante Kirk MA - 11/01/2024 11:13 AM EDT Daughter calling pt is new to chemo having second treatment today. She has gained 7# since yesterday. Chemo staff wanted pt to call senior underwriter pt has edema in ankles. 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 November 09, 2024 8:32am Pericardial effusion acute November 17, 2024 11:23am Right atrial mass acute November 11:23am Small cell lung cancer inactive Ma y 2024 11:23am Mediastinal lymphadenopathy chronic November 21, 2024 8:07am Encounter for antineoplastic immunotherapy acute December 12, 2024 8 :07am Encounter for chemotherapy management acute December 12, 2024 8 :07am Mediastinal lymphadenopathy chronic December 12, 2024 8:07am 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 December 12, 2024 8:07am 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 November 172024 8:07am Constipation inactive December 12 8:07am Delayed surgical wound healing inact gema December 12, 2024 8:07am Small cell lung cancer inactive Ma y 2024 8:07am Mediastinal lymphadenopathy chronic January 02, 2025 9:04am 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 January 23, 2025 9:03am 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 January 23, 2025 9:03am Small cell lung cancer inactive Ju ly 2024 9:03am Lung cancer acute February 11 6:01pm Abdominal pain inactive February 11, 2025 6:01pm Constipation inactive February 11, 025 6:01pm Delayed surgical wound healing inact gema February 11, 2025 6:01pm Hypokalemia inactive February 11 6:01pm Partial small bowel obstruction inac tive February 11, 2025 6:01pm Small cell lung cancer inactive Ju ly 2024 6:01pm 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 Beginning treatment 10/31/24. [place] [id number] Miscellaneous Notes* Telephone Encounter - Aixa Roche RCP - 10/27/2024 2:17 PM EDT Reviewed clinisync and confirmed that patient ws able to establish with [facility] on 10/26/24. Beginning treatment 10/31/24. * Telephone Encounter - Aixa Roche RCP - 10/24/2024 10:49 AM EDT Received call from Alee, Hammersmith Helper at [facility]. Per Alee, they are aware patient now has oncology appt in [place], but they are tryoing to have her seen at [place] sooner. Right faxed MRI brain and PET reports to providers at [place] in case she returns to them for [...] RCP - 10/19/2024 12:[address] Dayna Kamara placed the recommended referral to [facility]. Navigator spoke directly with move coordinator and medical oncology provider office and stressed urgency of appointment follow-up. creative services coordinator and medical oncology discussed directly with oncologist at [facility]. They are unable to offer Karina an appointment sooner than previously scheduled with her [place] oncology team. Navigator apologized to family and recommended they keep previously scheduled [place] oncology appointment. Patient will see Dr. Dunham 11/01/24 per daughter. Records have been sent to [place] and PET and MRI will also be sent when reports are final. Family has navigator contact info and will call if they need assistance. * Telephone Encounter - Aixa Roche RCP - 10/18/2024 11:[address] referral for medical oncology to [facility]. Navigator spoke with move coordinator and medical oncology office. She will discuss with oncology providers tomorrow morning to stress the urgency of appointment and attempt to expedite appointment. If unable to get patient in sooner than [place], navigator will advise patient to keep previously scheduled oncology follow-up. Daughter notified. * Telephone Encounter - Aixa Roche RCP - 10/18/2024 8:33 AM EDT Navigator received callback from patient's daughter Glenny. Patient's daughter reports that since we are able to expedite MRI and PET scan, oncology appointment has been moved up to 10/31/2024, but this is just tentative appointment as [place] and may not be back until 11/06/2024. Daughter would like Dr. Dayna Kamara to review and is willing to transfer care for oncology [facility] if pulmonary provider feels sooner oncology appointment [...] to patient's regular oncologist, Dr. Dunham and oil spot washer Rhiannon Georges in [place]. Patient has medical oncology appointment 11/06/24 but will try to move appointment sooner after PET scan. Navigator will send PET and MRI reports to providers once final . documented in this [facility]04-10-2025 History of Present illness Narrative* Joselyn Tucker MD - 10/26/2024 10:20 AM EDT . ENDOCRINOLOGY [address] [place] [id number] Dept: [phone] Dept Visit type: New patient Reason for [...] capsule by mouth daily., Disp: , Rfl: Wyola-3 Fatty Acids (OMEGA 3 500 PO), Take [...] visit. Joselyn Tucker MD documented in this [facility]04-10-2025 Evaluation note* Diagnosis Multinodular goiter (nontoxic)- Primary Nontoxic multinodular goiter Stage 3a chronic kidney disease (HCC) documented in this [facility]04-09-2025 Evaluation note* Diagnosis Onset Date Resolution Status [...] 11:23am Small cell lung cancer chronic Ma 2024 11:23am Mediastinal lymphadenopathy chronic November 21, [...] 2025 9:03am Small cell lung cancer chronic Ju 2024 9:03am [facility] Work Phone: 1(188) 448-361004-09-2025 Evaluation note* Diagnosis Onset Date Resolution Status [...] 2 025 8:32am 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 November 09, 2024 8:32am 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 Alesia 24th, 2025 8:32am Small cell carcinoma of left lung [...] 2025 9:03am Small cell lung cancer chronic Ju ly 2024 9:03am Abdominal pain acute February 11, 2025 6:01pm Hypokalemia acute February 11 6:01pm Partial small bowel obstruction acut e February 11, 2025 6:01pm Small cell lung cancer chronic Ju ly 2024 6:01pm [facility] Work Phone: 1(319) 919-419204-09-2025 Evaluation note* Diagnosis Onset Date Resolution Status [...] of venous access port acute October 27, 12:39pm Encounter for antineoplastic immunotherapy acute October 31, 2024 7:16am Encounter for chemotherapy management acute October 31, 2024 7:16am 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 October 31, 2024 7:16am 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 October 31, 2024 7:16am 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 October 31, 2024 7:16am Hypokalemia acute November 09, 2 025 8:32am 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 [...] 2025 9:03am Small cell lung cancer chronic Ju ly 2024 9:03am Abdominal pain acute February 11, 2025 6:01pm Constipation acute February 11, 025 6:01pm Delayed surgical wound healing acute February 11, 2025 6:01pm Hypokalemia acute February 11 6:01pm Lung cancer acute February 11 6:01pm Partial small bowel obstruction acut e February 11, 2025 6:01pm Small cell lung cancer chronic Ju ly 2024 6:01pm [facility] Work Phone: 1(386) 193-154004-09-2025 Evaluation note* Diagnosis Onset Date Resolution Status [...] 11:23am Small cell lung cancer chronic Ma 2024 11:23am Mediastinal lymphadenopathy chronic November 21, [...] 2025 9:03am Small cell lung cancer chronic Ju ly 2024 9:03am Abdominal pain acute February 11, 2025 6:01pm Constipation acute February 11, 025 6:01pm Delayed surgical wound healing acute February 11, 2025 6:01pm Hypokalemia acute February 11 6:01pm Lung cancer acute February 11 6:01pm Partial small bowel obstruction acut e February 11, 2025 6:01pm Small cell lung cancer chronic Ju ly 2024 6:01pm 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 February 20, 2025 7:55am 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 Augus t 2024 7:55am Small cell lung cancer chronic Au elvia 2024 7:55am [facility] Work Phone: 1(687) [phone] Telephone encounter Note* Telephone Encounter - NEGIN Johnson CNP - 10/24/2024 11:26 AM EDT Case reviewed - advanced small cell lung cancer *The patient's OARRS report was obtained and reviewed.* [place] [id number] Miscellaneous Notes* Telephone Encounter - NEGIN Johnson CNP - 10/24/2024 11:26 AM EDT Case reviewed - advanced small cell lung cancer *The patient's OARRS report was obtained and reviewed.* * Telephone Encounter - Alayna Kaplan - 10/24/2024 11:[address] Fortune, pt needs a prescription sent for percocet 5/325mg, 1 tab Q6 hours PRN. documented in this encounterSWestern Reserve [id number] Telephone encounter Note* Telephone Encounter - Alayna Kaplan - 10/24/2024 11:[address] Fortune, pt needs a prescription sent for percocet 5/325mg, 1 tab Q6 hours PRN. [facility] [id number] Telephone encounter Note* Telephone Encounter - Aixa Roche RCP - 10/24/2024 10:49 AM EDT Received call from Alee, Hammersmith Helper at [facility]. Per Alee, they are aware patient now has oncology appt in [place], but they are tryoing to have her seen at [place] sooner. Right faxed MRI brain and PET reports to providers at [place] in case she returns to them for oncology care. Also requested images be pushed to provider. [place] [id number] Miscellaneous Notes* Telephone Encounter - Aixa Roche RCP - 10/24/2024 10:49 AM EDT Received call from Alee Hammersmith Helper at [facility]. Per Alee, they are aware patient now has oncology appt in [place], but they are tryoing to have her seen at [place] sooner. Right faxed MRI brain and PET reports to providers at [place] in case she returns to them for [...] RCP - 10/19/2024 12:[address] Dayna Kamara placed the recommended referral to [facility] medical oncology. Navigator spoke directly with move coordinator and medical oncology provider office and stressed urgency of appointment follow-up. creative services coordinator and medical oncology discussed directly with oncologist at [facility]. They are unable to offer Karina an appointment sooner than previously scheduled with her [place] oncology team. Navigator apologized to family and recommended they keep previously scheduled [place] oncology appointment. Patient will see Dr. Dunham 11/01/24 per daughter. Records have been sent to [place] and PET and MRI will also be sent when reports are final. Family has navigator contact info and will call if they need assistance. * Telephone Encounter - Aixa Roche RCP - 10/18/2024 11:[address] referral for medical oncology to [facility]. Navigator spoke with move coordinator and medical oncology office. She will discuss with oncology providers tomorrow morning to stress the urgency of appointment and attempt to expedite appointment. If unable to get patient in sooner than [place], navigator will advise patient to keep previously scheduled oncology follow-up. Daughter notified. * Telephone Encounter - Aixa Roche RCP - 10/18/2024 8:33 AM EDT Navigator received callback from patient's daughter Glenny. Patient's daughter reports that since we are able to expedite MRI and PET scan, oncology appointment has been moved up to 10/31/2024, but this is just tentative appointment as [place] and may not be back until 11/06/2024. Daughter would like Dr. Dayna Kamara to review and is willing to transfer care for oncology [facility] if pulmonary provider feels sooner oncology appointment [...] to patient's regular oncologist, Dr. Dunham and oil spot washer Rhiannon Georges in [place]. Patient has medical oncology appointment 11/06/24 but will try to move appointment sooner after PET scan. Navigator will send PET and MRI reports to providers once final . documented in this [place] [address]-08-2025 History of Present illness Narrative* Lizandro Fortune MD - 10/24/2024 10:43 AM EDT OARRS reviewed documented in this [place] [address]-08-2025 NoteDrJosh Fortune discussed patient with Dr. Worrell. Expedited referral arranged, pt is scheduled to see Dr. Jerry on Wednesday10/27/24 at 0800. Pt and daughter are aware of appointment.[facility]04-08-2025 Telephone encounter Note * Telephone Encounter - Alayna Kaplan - 10/24/2024 9:[address] Fortune discussed patient with Dr. Worrell. Expedited referral arranged, pt is scheduled to see Dr. Jerry on Wednesday10/27/24 at 0800. Pt and daughter are aware of appointment. [place] [id number] History of Present illness Narrative* Lizandro Fortune MD - 10/24/2024 9:30 AM EDT Images from the original note were not included. [facility] CARDIOVASCULAR & THORACIC SURGERY [address] [facility] [address] Dept: [phone] Dept Loc: [phone] Patient was identified and seen today via [...] they are currently in the state [facility]. If the patient is a minor, permission [...] etiology. Per note, pt had presented to [place] ED in August 2023 for dyspnea. CTA [...] follow with her oncologist Dr. Chance in [place]. MRI brain on 10/17/24 was normal. PET [...] patient also completed a thyroid biopsy at [place] and pathologyis still pending/unavailable. Pt is a [...] capsule by mouth daily., Disp: , Rfl: Wyola-3 Fatty Acids (OMEGA 3 500 PO), Take [...] Hector DO Hematology/Oncology: Alis Chance MD Pulmonology: Yaritza Johnson DO Pulmonary Navigator: Aixa Roche RCP [...] This note may have been dictated using [employer] Medical Practice Edition 2.6 and/or [employer] Voice Recognition Feature. The document was proofread, however unrecognized voice recognition rn employee health errors may be present. documented in this [facility]04-05-2025 Discharge summary [facility] Medical Records Department [address] [place] [address] Emergency Department Summary 10/21/24 MR#: [id number] Acct: [id number] Name: KARINA FERNANDO Rep #:[id number] : 1950 73 From: Tay Dumont MD [...] had a recent admission and transfer to [facility] and her daughter states that when [...] blood pressure medication according to her daughter. [facility] Medical History COPD (chronic obstructive pulmonary disease) [...] 2.5 mg/3 mL 2.5 mg inhalation PRN ID N 09/22/24 Unknown History (0.083 %) solution [...] pulmonary embolism. She had been transferred to [facility] at the end of last month, just [...] they found that when she was at [facility] and recently discharged, stating that it [...] 70.7 H Lymph % (Auto) 16.1 L Green % (Auto) 12.4 H Eos % (Auto) [...] mucous plug or other etiology Reading [facility] Discharge Plan Triage Chief Complaint: Shortness [...] directed. Follow-up with your oncologist. Print Language: Macedonian Disposition Disposition: Home, Self Care What to do if you have Problems For any increased pain, shortness of breath, bleeding, nausea or vomiting, chestpain, or any unexpected problems, contact your Primary Care Provider. Call [facility] ([phone]) or report tothe closest Emergency Room. Call 911 if necessary. 10/21/24 1645 Cosigner Signature (if applicable): CC: Dr. Tu Hector DO ~ Signed [facility]04-05-2025 Radiology Diagnostic study note [facility] Imaging Services [address] [place], [place] [id number] Chest 1 View (Portable) MR#: [id number] Acct: [id number] Name: KARINA FERNANDO Rep #: [id number] : 1950 F 73 From: Pet er Peer DO PCP: Dr. Tu Hector DO Status: REG ER Study:Chest 1 View (Portable) Date of Exam: 10/21/24 Exam# [id number] Ordering Dr: Tay Dumont MD PROCEDURE: CHEST [...] mucous plug or other etiology Reading Location: [facility] CC: Dr. Tay Dumont MD; Dr. Tu Hector DO ~ Platform Architect: Signed [facility]04-05-2025 Discharge summary Author Tay Dumont [facility] Note Date/Time October 21, 2024 4:45 pm [facility] Medical Records Department [address] [place] [address] Emergency Department Summary 10/21/24 MR#: [id number] Acct: [id number] Name: KARINA FERNANDO Rep #:[id number] : 1950 73 From: Tay Dumont MD [...] had a recent admission and transfer to [facility] and her daughter states that when [...] blood pressure medication according to her daughter. [facility] Medical History COPD (chronic obstructive pulmonary disease) [...] 2.5 mg/3 mL 2.5 mg inhalation PRN ID N 09/22/24 Unknown History (0.083 %) solution [...] Hives Verified 10/21/24 15:06 tramadol HCl (From [facility]) Allergy Hives Verified 10/21/24 15:06 erythromycin [...] nonlateralizing. Const Vital Signs: 10/21/24 15:05 10/21/24 15:10/21/24 15:11 Temperature 98.4 F 98.4 F [...] pulmonary embolism. She had been transferred to [facility] at the end of last month, just [...] they found that when she was at [facility] and recently discharged, stating that it [...] 70.7 H Lymph % (Auto) 16.1 L Green % (Auto) 12.4 H Eos % (Auto) [...] mucous plug or other etiology Reading Location: [facility] Discharge Plan Triage Chief Complaint: [...] directed. Follow-up with your oncologist. Print Language: Macedonian Disposition Disposition: Home, Self Care What to do if you have Problems For any increased pain, shortness of breath, bleeding, nausea or vomiting, chestpain, or any unexpected problems, contact your Primary Care Provider. Call [facility] ([phone]) or report to the closest Emergency Room. Call 911 if necessary. 10/21/24 3085 <Electronically signed by Tay Dumont MD> Cosigner Signature (if applicable): CC: Dr. Tu Hector, DO ~ Signed [facility] Work Phone: 1(295) 328-932604-03-2025 NoteDrJosh Kamara placed the recommended referral to [facility] medical oncology. Navigator spoke directly with move coordinator and medical oncology provider office and stressed urgency of appointment follow-up. creative services coordinator and medical oncology discussed directly with oncologist at [facility]. They are unable to offer Karina an appointment sooner than previously scheduled with her [place] oncology team. Navigator apologized to family and recommended they keep previously scheduled [place] oncology appointment. Patient will see Dr. Dunham 11/01/24 per daughter. Records have been sent to [place] and PET and MRI will also be sent when reports are final. Family has navigator contact info and will call if they need assistance.[facility]04-03-2025 Telephone encounter Note* Telephone Encounter - Aixa Roche RCP - 10/19/2024 12:[address] Dayna Kamara placed the recommended referral to [facility] medical oncology. Navigator spoke directly with move coordinator and medical oncology provider office and stressed urgency of appointment follow-up. creative services coordinator and medical oncology discussed directly with oncologist at [facility]. They are unable to offer Karina an appointment sooner than previously scheduled with her [place] oncology team. Navigator apologized to family and recommended they keep previously scheduled [place] oncology appointment. Patient will see Dr. Dunham 11/01/24 per daughter. Records have been sent to [place] and PET and MRI will also be sent when reports are final. Family has navigator contact info and will call if they need assistance. [facility] [id number] Miscellaneous Notes* Telephone Encounter - Aixa Roche RCP - 10/19/2024 12:[address] Dayna Kamara placed the recommended referral to [facility] medical oncology. Navigator spoke directly with move coordinator and medical oncology provider office and stressed urgency of appointment follow-up. creative services coordinator and medical oncology discussed directly with oncologist at [facility]. They are unable to offer Karina an appointment sooner than previously scheduled with her [place] oncology team. Navigator apologized to family and recommended they keep previously scheduled [place] oncology appointment. Patient will see Dr. Dunham 11/01/24 per daughter. Records have been sent to [place] and PET and MRI will also be sent when reports are final. Family has navigator contact info and will call if they need assistance. * Telephone Encounter - Aixa Roche RCP - 10/18/2024 11:[address] referral for medical oncology to [facility]. Navigator spoke with move coordinator and medical oncology office. She will discuss with oncology providers tomorrow morning to stress the urgency of appointment and attempt to expedite appointment. If unable to get patient in sooner than [place], navigator will advise patient to keep previously scheduled oncology follow-up. Daughter notified. * Telephone Encounter - Aixa Roche RCP - 10/18/2024 8:33 AM EDT Navigator received callback from patient's daughter Glenny. Patient's daughter reports that since we are able to expedite MRI and PET scan, oncology appointment has been moved up to 10/31/2024, but this is just tentative appointment as [place] and may not be back until 11/06/2024. Daughter would like Dr. Dayna Kamara to review and is willing to transfer care for oncology [facility] if pulmonary provider feels sooner oncology appointment [...] to patient's regular oncologist, Dr. Dunham and oil spot washer Rhiannon Georges in [place]. Patient has medical oncology appointment 11/06/24 but will try to move appointment sooner after PET scan. Navigator will send PET and MRI reports to providers once final . documented in this encounterSWestern Reserve [id number] for medical oncology to [facility]. Navigator spoke with move coordinator and medical oncology office. She will discuss with oncology providers tomorrow morning to stress the urgency of appointment and attempt to expedite appointment. If unable to get patient in sooner than [place], navigator will advise patient to keep previously scheduled oncology follow-up. Daughter notified.[facility]04-02-2025 Telephone encounter Note* Telephone Encounter - Aixa Roche RCP - 10/18/2024 11:[address] referral for medical oncology to [facility]. Navigator spoke with move coordinator and medical oncology office. She will discuss with oncology providers tomorrow morning to stress the urgency of appointment and attempt to expedite appointment. If unable to get patient in sooner than [place], navigator will advise patient to keep previously scheduled oncology follow-up. Daughter notified. [id number] Telephone encounter Note* Telephone Encounter - Aixa Roche RCP - 10/18/2024 8:33 AM EDT Navigator received callback from patient's daughter Glenny. Patient's daughter reports that since we are able to expedite MRI and PET scan, oncology appointment has been moved up to 10/31/2024, but this is just tentative appointment as [place] and may not be back until 11/06/2024. Daughter would like Dr. 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 [facility] [id number] Telephone encounter Note* Telephone Encounter - Aixa Roche RCP - 10/17/2024 2:10 PM EDT Navigator contacted patient's daughter by phone. They would like first available PET scan at any location. She is currently scheduled 10/30/24. Moved up PET scan appointment to Faxed records including path report, thoracentesis report, thoracic conference recommendations, CTSand pulmonary and cardiology consults to patient's regular oncologist, Dr. Dunham and oil spot washer Rhiannon Georges in [place]. Patient has medical oncology appointment 11/06/24 but will try to move appointment sooner after PET scan. Navigator will send PET and MRI reports to providers once final . [facility] [id number] History of Present illness Narrative* Yaritza Kamara DO - 10/17/2024 11:30 AM EDT [facility] [place] [address] [place] [address] Pulmonary Patient Visit 10/17/2024 Referring Physician: TU HECTOR DO Reason for Referral: SOB 10/03/24 History of Present Illness Karina Fernando is a 73 y.o. F with history of recurrent sinus infections, COPD on symbicort/albuterol,HTN who presented for a left hilar mass. Stated that in May she began having shortness of breath which worsened until she went to the ER in [place] in August. Found on CT with a left hilar mass, left upper lobe pleural-based mass, and moderate pericardial effusion. Evaluated by oncology and recommended for PET/CT, MRI brain, and biopsy. Established with pulmonology and had been planned forEBUS in [place] but canceled after TTE demonstrated a right [...] Previously normal 10/17/24 Patient was hospitalized in [place] ER for worsening pain and shortness of [...] Medications Medication Documentation Review Audit Reviewed by Yaritza Johnson DO (Physician) on 10/17/24 at 1226 Medication Order Taking? Sig Documenting Provider Last Dose Status acetaminophen (Tylenol) 325 MG tablet [id number] Take 2 tablets (650 mg) by mouth every 6 hours as needed for mild pain (1-3) or fever (For temp greater than 100.4 F (38 C)) for up to 10 days. Patient not taking: Reported on 10/09/2024 Jeffrey Horne, DO 10/16/24 2359 albuterol (Ventolin HFA) 108 (90 Base) MCG/ACT inhaler [id number] Yes Inhale 2 puffs every 4 hours as needed for wheezing or shortness of breath. Yaritza Johnson, DO Active ALPRAZolam (Xanax) 0.5 MG tablet [id number] Take 1 tablet (0.5 mg) by mouth 1 time for 1 dose. Take 30 minutes prior to MRI Lisandra Ericka Aldridge, [employer]ECTIVE [employer]OT[employer] - BILLBOARD POSTER HELPER 10/10/24 2359 Discontinued 10/17/24 1119 budesonide-formoterol (Symbicort) 80-4.5 MCG/ACT inhaler [id number] Inhale 2 puffs 2 times daily. Yaritza Johnson, DO Active busPIRone (Buspar) 10 MG tablet [id number] Yes Take 10 mg by mouth 3 times daily as needed. Historical Provider, Active cholecalciferol (Vitamin D-3) 25 MCG (1000 UT) capsule [id number] Yes Take 1,000 Units by mouth daily. Historical Provider, Active ipratropium-albuterol (Duo-Neb) 0.5-2.5 mg/3 mL nebulizer solution [id number] Yes Take 3 mL by nebulization every 6 hours. Historical Provider, Active loratadine (Claritin) 5 MG chewable tablet [id number] Yes Chew 5 mg daily. Historical Provider, Active Melatonin 2.5 MG chewable tablet [id number] Yes Chew Daily as needed. Historical Provider, Active Multiple Vitamin (multivitamin) capsule [id number] Yes Take 1 capsule by mouth daily. Historical Provider, Active Wyola-3 Fatty Acids (OMEGA 3 500 PO) [id number] Yes Take by mouth daily. Historical Provider, Active oxyCODONE-acetaminophen (Percocet) 7.5-325 MG tablet [id number] Take 1 tablet by mouth every 6 hoursas needed for moderate pain (4-6) for up to 5 days. Jeffrey Horne DO 10/11/24 2359 traZODone (Desyrel) 100 MG tablet [id number] Yes Take 100 mg by mouth Nightly. Historical Provider, Active valACYclovir (Valtrex) 500 MG tablet [id number] Yes Take by mouth daily. Historical Provider, Active Vitamin E 268 MG (400 UNIT) capsule [id number] Yes Take by mouth daily. Historical Provider, [...] Follow up: Patient will follow-up with her oil spot washer and oncologist in [place] Please seek immediate medical attention for any worsening or worrying new symptoms. Patient education, benefits, risks, and precautions provided. Management plan was discussed in detail and in agreement. All questions or concerns answered to satisfaction and understood. Yaritza Johnson DO 12:27 PM 10/17/24 Pulmonary and Critical Care Medicine documented in this [facility]04-01-2025 Instructions* Patient Instructions* Domenica Webb MA - 10/17/2024 11:30 AM EDT YOUR APPOINTMENT TODAY WAS WITH THE [facility] LUNG NODULE [facility], COPD CLINIC, PULMONARY AND SLEEP MEDICINE OFFICE. PLEASE CALL OUR OFFICE AT [phone] IF YOU HAVE NOT RECEIVED YOUR TEST [...] to make improvements. COVID-19 VACCINATION INFORMATION: . [phone] [facility]/CORONAVIRUS/VACCINE [facility] [phone] [facility] [phone] documented in this [facility]04-01-2025 History of Present illness Narrative* Aixa Kaley, [facility] - 10/17/2024 9:13 AM EDT THORACIC ONCOLOGY AND LUNG NODULE TUMOR BOARD RECOMMENDATIONS Consensus Recommendation Summary Privileged Information TUMOR BOARD CLINICAL SUMMARY Basic Demographic Information Karina Maxwell Sylvia Date of presentation : 10/17/24 1950 Presenting physician: Dr. Johnson 73 y.o. [] Previous presentation date : Presentation Type [x] Prospective [] Retrospective [] Nodule Brief Clinical Summary & Tumor Board Recommendations 4 Diagnosis Small Cell Ca; Thyroid nodules; R atrial mass Presenter: Dr. Mejia Screening: Name Karina Fernando Surgeon: Dr. Evita Watson to do recommendations for CAMACHO maria: SK MR#/Epic [id number] Oncologist: Dr. Mauri Chance () CTAP: /Age [birth year] 73 yo Rad Oncologist MRI: 10/17/24 Gender Female Assistant Womens Volleyball Coach: Dr. Dayna Kamara/ [facility] PET: 10/30/24 Smoking History: ? Former 40 pk yr Quit 05/2024 PCP: Dr. Tu Hector PFT: 09/25/24 @ [facility] ?Prospective []Retrospective Personal Banking Advisor: Dr. Luis PATH: EBUS/TBBX 10/09/24; US Thora 10/06/24; Thyroid bx- [place] 10/10/24 (path pending) Clinical Stage: unable to stage : @ least N2 dz Path Stage: T N M Barium Swallow 10/06/24 Brief Summary Known COPD was seen in ED at [place] for eval of worsening SOB, Left shoulder, back, and lung pain, and dizziness. CT in [place] noted a left hilar mass, LEYLA mass and adenopathy, R atrial mass, pericardial effusion and thyroid nodules. Evaluated by [place] med onc and recommended to have PET, MRI and biopsy. Sent to [facility] CTS and arranged same day urgent appts with pulmonary and cardiology. Sent for EBUS and now presents to review imaging, path, staging and plan of care. * Also completed thyroid bx @ [place] and path results are pending Recommendations: 1. [...] differ from this recommendation. documented in this [facility]03-27-2025 NotePatient: Karina Fernando Procedure Summary Date: 10/09/24 Room / Location: [place] [address] / [facility] Gastroenterology Anesthesia Start: 1439 Anesthesia Stop: 1542 Procedure: ENDOBRONCHIAL ULTRASOUND WITH TRANSBRONCHIAL NEEDLE ASPIRATION. POSSIBLE ENDOBRONCHIAL BIOPSIES, NEEDLE ASPIRATION, AND BRUSHINGS. Diagnosis: Hilar mass Adenopathy Lung mass Providers: Daija Mejia MD Responsible Provider: Kilo Swan MD [...] discharged once all PACU criteria has been met.[facility] [id number] NotePatient: Karina Fernando Procedure Summary Date: 10/09/24 Room / Location: [facility] / [facility] Gastroenterology Anesthesia Start: 1439 Anesthesia Stop: 154 Procedure: ENDOBRONCHIAL ULTRASOUND WITH TRANSBRONCHIAL NEEDLE ASPIRATION. POSSIBLE ENDOBRONCHIAL BIOPSIES, NEEDLE ASPIRATION, AND BRUSHINGS. Diagnosis: Hilar mass Adenopathy Lung mass Providers: Daija Mejia MD Responsible Provider: Kilo Swan MD [...] factors for PONV (4556F) Patient received at aset 2 prophylactic Rx PONV anti-emtic agents of [...] Allowed opportunity for questions and acknowledgement of understanding.[facility]03-25-2025 Radiology Diagnostic study note [facility] Imaging Services [address] [place] [address] FNA 1st Biopsy w/ US MR#: [id number] Acct: [id number] Name: KARINA FERNANDO Rep #: [id number] : 1950 F 73 From: Jonas James MD PCP: Dr. Tu Hector DO Status: REG CLI Study:FNA 1st Biopsy w/ US Date of Exam: 10/10/24 Exam# [id number] Ordering Dr: Jackelyn Hector DO EXAM: Ultrasound [...] biopsy. Multinodular goiter is noted. Reading Location: [place] [address] CC: Dr. Tu Hector DO ~ Platform Architect: Signed [facility]03-24-2025 NoteAirway Date/Time: 10/09/2024 2:43 PM Urgency: scheduled Airway not difficult General Information and Staff Patient location during procedure: Procedural Resident/CUTTER OPERATOR BRICK: Mello Schneider CRNA Performed: CUTTER OPERATOR BRICK Indications and Patient Condition Indications for airway [...] attempts: none Number of other approaches attempted: [address] [place], [place] [address]40403-24-2025 Note [facility] Patient Name: Karina Fernando Procedure Date: 10/09/2024 2:23 PM Gender: Female Date of : 1950 Age: 73 Admit Type: Outpatient Note Status: Finalized Attending MD: Daija Mejia MD, [id number] Procedure: Bronchoscopy Indications: Left hilar mass Findings: [...] and in the left hilum using a PLUMgrid Expect 25 gauge needle and sent for [...] loss: Minimal Procedure Code(s): --- Professional --- 93476, Bronchoscopy, rigid or flexible, including fluoroscopic guidance, when performed; with transbronchial needle aspiration biopsy(s), trachea, main stem and/or lobar bronchus(i) 39769, 59, Bronchoscopy, rigid or flexible, including fluoroscopic guidance, when performed; with bronchial or endobronchial biopsy(s), single or multiple sites 59280, Bronchoscopy, rigid or flexible, including fluoroscopic guidance, when performed; with bronchial alveolar lavage 18466, Bronchoscopy, rigid or flexible, including fluoroscopic guidance, when performed; with brushing or protected brushings 39422, Bronchoscopy, rigid or flexible, including fluoroscopic guidance, when performed; with transendoscopic endobronchial ultrasound (EBUS) during bronchoscopic diagnostic or therapeutic intervention(s) for peripheral lesion(s) (List separately in addition to code for primary procedure[s]) Diagnosis Code(s): --- Profession (more content not included)...[facility]03-24-2025 Procedure note* Op Note - Daija Mejia MD - 10/09/2024 2:23 PM EDT [facility]: Karina Fernando Procedure Date: 10/09/2024 2:23 PM Gender: Female Date of : 1950 Age: 73 Admit Type: Outpatient Note Status: Finalized Attending MD: Daija Mejia MD, [id number] Procedure: Bronchoscopy Indications: Left hilar mass Findings: [...] and in the left hilum using a PLUMgrid Expect 25 gauge needle and sent for [...] loss: Minimal Procedure Code(s): --- Professional --- 76063, Bronchoscopy, rigid or flexible, including fluoroscopic guidance, when performed; with transbronchial needle aspiration biopsy(s), trachea, main stem and/or lobar bronchus(i) 76390, 59, Bronchoscopy, rigid or flexible, including fluoroscopic guidance, when performed; with bronchial or endobronchial biopsy(s), single or multiple sites 62856, Bronchoscopy, rigid or flexible, including fluoroscopic guidance, when performed; with bronchial alveolar lavage 54685, Bronchoscopy, rigid or flexible, including fluoroscopic guidance, when performed; with brushing or protected brushings 45594, Bronchoscopy, rigid or flexible, including fluoroscopic guidance, when performed; with transendoscopic endobronchial ultrasound (EBUS) during bronchoscopic diagnostic or therapeutic intervention(s) for peripheral lesion(s) (List separately in addition to code for primary procedure[s]) Diagnosis Code(s): --- Professional --- R91.8, Other nonspecific abnormal finding of lung field J98.4, Other disorders of lung J98.09, Other diseases of bronchus, not elsewhere classified R04.2, Hemoptysis CPT copyright 2021 [employer]. All rights reserved. The codes documented in this report are preliminary and upon marketing programs specialist review may be revised to meet current compliance requirements. Attending Participation: I personally performed the entire procedure. Daija Mejia MD 10/09/2024 3:46:37 PM This report has been signed electronically. Number of Addenda: 0 Note Initiated On: 10/09/2024 2:23 PM [id number] Miscellaneous Notes* Op Note - Daija Mejia MD - 10/09/2024 2:23 PM EDT [facility] Patient Name: Karina Fernando Procedure Date: 10/09/2024 2:23 PM Gender: Female Date of : 1950 Age: 73 Admit Type: Outpatient Note Status: Finalized Attending MD: Daija Mejia MD, [id number] Procedure: Bronchoscopy Indications: Left hilar mass Findings: [...] and in the left hilum using a PLUMgrid Expect 25 gauge needle and sent for [...] loss: Minimal Procedure Code(s): --- Professional --- 26031, Bronchoscopy, rigid or flexible, including fluoroscopic guidance, when performed; with transbronchial needle aspiration biopsy(s), trachea, main stem and/or lobar bronchus(i) 75304, 59, Bronchoscopy, rigid or flexible, including fluoroscopic guidance, when performed; with bronchial or endobronchial biopsy(s), single or multiple sites 50617, Bronchoscopy, rigid or flexible, including fluoroscopic guidance, when performed; with bronchial alveolar lavage 27396, Bronchoscopy, rigid or flexible, including fluoroscopic guidance, when performed; with brushing or protected brushings 26560, Bronchoscopy, rigid or flexible, including fluoroscopic guidance, when performed; with transendoscopic endobronchial ultrasound (EBUS) during bronchoscopic diagnostic or therapeutic intervention(s) for peripheral lesion(s) (List separately in addition to code for primary procedure[s]) Diagnosis Code(s): --- Professional --- R91.8, Other nonspecific abnormal finding of lung field J98.4, Other disorders of lung J98.09, Other diseases of bronchus, not elsewhere classified R04.2, Hemoptysis CPT copyright 2021 [employer]. All rights reserved. The codes documented in this report are preliminary and upon marketing programs specialist review may be revised to meet current compliance requirements. Attending Participation: I personally performed the entire procedure. Daija Mejia MD 10/09/2024 3:46:37 PM This report has been signed electronically. Number of Addenda: 0 Note Initiated On: 10/09/2024 2:23 PM documented in this [facility]03-24-2025 History and physical note* Daija Mejia MD - 10/09/2024 2:11 PM EDT [...] lymph nodes, sampling/staging, sampling of hilar mass. [employer] Work Phone: [phone]) 650-963403-24-2025 NoteChief Complaint: left hilar mass History of [...] lymph nodes, sampling/staging, sampling of hilar mass. [facility]03-24-2025 History and physical note* Daija Mejia MD - 10/09/2024 2:11 PM EDT [...] sampling of hilar mass. documented in this [facility]03-24-2025 NotePatient: Karina Fernando Procedure Information Date/Time: 10/09/24 1330 Procedure: ENDOBRONCHIAL ULTRASOUND WITH TRANSBRONCHIAL NEEDLE ASPIRATION. POSSIBLE ENDOBRONCHIAL BIOPSIES, NEEDLE ASPIRATION, AND BRUSHINGS. - Rad, path, total time: 90 min Location: [place] [address] / [facility] Gastroenterology Providers: Daija Mejia MD Relevant Problems Anesthesia (+) History [...] any previous visit. Equipment Requests: Additional [facility]03-21-2025 Plan of care note * Care Plan [...] monitored and maintained or improved Outcome: Completed [id number] Miscellaneous Notes* Care Plan - Dannielle Lawson [...] fall injury Outcome: Progressing documented in this [facility]03-21-2025 NoteRTHOMEO2[[id number]] Respiratory Therapy Home O2 Progress Note O2 [...] home Y/N = Y DME Notified Y [facility]03-21-2025 History of Present illness Narrative* Sean Chen RRT - 10/06/2024 3:30 PM EDT Images from the original note were not included. RTHOMEO2[[id number]] Respiratory Therapy Home O2 Progress Note O2 [...] Y/N = Y DME Notified Y * Jeffrey Horne DO - 10/06/2024 3:06 PM EDT Patient chart is reviewed. Currently rounding. Full note to follow. * Brendan Thao PT - 10/06/2024 12:39 PM EDT Images from the original note were not included. PHYSICAL THERAPY [facility] Initial Evaluation Name/MRN: Karina Fernando ([id number]) Evaluation Date: 10/06/2024 Date of : 1950 Admission Date: 10/05/2024 8:10 PM Age: 73 y.o. Room/Bed: W4-439/W4439 A Discharge Recommendation: Home with Home health PT Assessment IMPRESSION: Karina is a 73 y.o. female with past medical history of COPD previous smoker, asthma, Hiatal hernia, Recent discovery of lung mass and thyroid nodules. CLINICAL RESEARCH MONITOR pt IND without device. Pt reports mobility [...] Responsibilities: Independent Receives Help From: [employer] Cataloger: Prior Level of Function IND with mobility without device Objective Lower Extremity Assessment AROM: WNL PROM: WNL Strength: WNL Sensation: WNL Balance: Not assessed this session Bed Mobility: Supine to sit: Independent Sit to supine: Independent Transfers Sit to stand: Independent Stand to sit: Independent Ambulation Pt ambulates 50ft with multiple turns without device with SBA. As pt becomes more fatigued CRITICAL CARE CLINICAL NURSE SPECIALIST provided due to increased lateral sway. [...] Raw Score (No Stairs) : 20 JH-HLM -HL Score: Walked 25 ft or more (i.e. [...] of Care supervision is transferred to a [facility] Therapy Services Physical Therapist. Goals and/or treatment plan was established in collaboration with patient/family/other representatives. * Charis Barron, [facility]-PIPE COVERING MOLDER - 10/06/2024 8:43 AM EDT Images from the original note were not included. Speech-Language Pathology SPEECH LANGUAGE PATHOLOGY [facility] Modified Barium Swallow Study Patient Name: Karina Fernando Evaluation Date: 10/06/2024 Date of : 1950 Admission Date: 10/05/2024 8:10 PM Age: 73 y.o. Room/Bed: [facility] A IMPRESSION: The patient presents [...] contrast enters the airway. No further skilled PIPE COVERING MOLDER indicated at this time. Please reconsult should [...] and other work up. She presented to [place] ED - with worsening left shoulder, back [...] Unable to obtain labs and imaging from [place] - Was told she has a complete [...] Goal: To have some coffee Therapy Time PIPE COVERING MOLDER Individual Minutes Time In: 0840 Time Out: 0900 Minutes: 20 MAGY JeanPIPE COVERING MOLDER documented in this [facility]03-21-2025 NoteHospitalist Discharge Summary Karina Fernando : 1950 Admit date: 10/05/2024 Discharge date: 10/06/2024 Admitting Physician: Jeffrey Horne DO Primary Care Physician: TU HECTOR [...] and other work up. She presented to [place] ED - with worsening left shoulder, back [...] to [facility] [address] [place] [address], [facility] (more content not included)...[facility]03-21-2025 Hospital Discharge instructions* Discharge Instr - Activity* Jeffrey Horne DO - 10/06/2024 3:08 PM EDT As tolerated * Attachments The following attachments cannot be sent through Care Everywhere. * Pleural Effusion Discharge Instructions (Macedonian) * Shortness of Breath (Dyspnea) Discharge Instructions (Macedonian) documented in this [facility]03-21-2025 Note* Care Coordination - Lisandra Thibodeaux RN - 10/06/2024 12:55 PM EDT Pt adm for tx/ eval of SOB- found to have pleural effusion. RA currently. US guided thoracentesis, XR chest and barium swallow completed. Spoke with pt and family, introduced self and roll. Pt plans to return home- no needs. [id number] Note* Care Coordination - Lisandra Thibodeaux RN - 10/06/2024 12:55 PM EDT Pt adm for tx/ eval of SOB- found to have pleural effusion. RA currently. US guided thoracentesis, XR chest and barium swallow completed. Spoke with pt and family, introduced self and roll. Pt plans to return home- no needs. [id number] NotePHYSICAL THERAPY [facility] Initial Evaluation Name/MRN: Karina Fernando ([id number]) Evaluation Date: 10/06/2024 Date of : 1950 Admission Date: 10/05/2024 8:10 PM Age: 73 y.o. Room/Bed: W4439/W4439 A Discharge Recommendation: Home with Home health PT Assessment IMPRESSION: Karina is a 73 y.o. female with past medical history of COPD previous smoker, asthma, Hiatal hernia, Recent discovery of lung mass and thyroid nodules. CLINICAL RESEARCH MONITOR pt IND without device. Pt reports mobility [...] Responsibilities: Independent Receives Help From: [employer] Cataloger: Prior Level of Function IND with mobility without device Objective Lower Extremity Assessment AROM: WNL PROM: WNL Strength: WNL Sensation: WNL Balance: Not assessed this session Bed Mobility: Supine to sit: Independent Sit to supine: Independent Transfers Sit to stand: Independent Stand to sit: Independent Ambulation Pt ambulates 50ft with multiple turns without device with SBA. As pt becomes more fatigued CRITICAL CARE CLINICAL NURSE SPECIALIST provided due to increased lateral sway. [...] Raw Score (No Stairs) : 20 [facility] Score: Walked 25 ft or more (i.e. [...] of Care supervision is transferred to a [facility] Physical Therapist. Goals and/or treatment plan was established in collaboration with patient/family/other representatives.[facility] [id number] Nurse Note* Monico Islas RN - 10/06/2024 [...] given via telephone to Fab Lawson RN. [facility] [id number] Nurse Note* Monico Islas RN - 10/06/2024 [...] to Fab Lawson RN. documented in this [facility]03-21-2025 NoteProblem: Pain - Adult Goal: Verbalizes/displays adequate comfort level or baseline comfort level Outcome: Progressing Problem: Safety - Adult Goal: Free from fall injury [facility]: [facility] Plan of care note* Care Plan - Pravin Duval RN - 10/06/2024 1:01 AM EDT Problem: Pain - Adult Goal: Verbalizes/displays adequate comfort level or baseline comfort level Outcome: Progressing Problem: Safety - Adult Goal: Free from fall injury Outcome: Progressing [facility] HospitalBnztbu82-74-7498 History and physical note* Sushila Tam MD [...] and other work up. She presented to [place] ED - with worsening left shoulder, back [...] Unable to obtain labs and imaging from [place] - Was told she has a complete [...] capsule Take 1,000 Units by mouth daily. Iebfzblbbgu-Rdowqjhwj-Wxxrzw (Trelegy Ellipta) 100-62.5-25 MCG/ACT aerosol powder Inhale [...] capsule Take 1 capsule by mouth daily. Wyola-3 Fatty Acids (OMEGA 3 500 PO) Take [...] suspicion of a metastatic process. Will need PIPE COVERING MOLDER and MBSS for assessment. - Lightheadedness upon [...] Pending the following - s/p pulmonology and PIPE COVERING MOLDER evaluation Total time spent (which include face to face and non face to face encounters) : 81 minutes. Toxic drug monitoring/narrow therapeutic index drug monitoring : # Drug name : NA # Route administered : NA # Method of monitoring : NA Extended Emergency Contact Information Primary Emergency Contact: Glenny Cordova Mobile Relation: Daughter Secondary Emergency Contact: Yuri Dozier Mobile Relation: Son [employer] PLANNING Karina Fernando : 1950 Primary Care Physician: TU HECTOR DO The patient and/or family/surrogate voluntarily agreed to participate in ACP services. Patient s cognitive capacity: intact Code Status: [X] [FULL CODE - Continue all advanced life support: CPR,intubation,invasive procedures] [_] [DNR-CCA - DO NOT do CPR, intubation] [_] [DNR-MUSIC THERAPY TEACHER - Comfort care only] [_] DNR form [was/was not] signed Summary of discussion: The patient health care POA/ surrogate is the following: Catherine Cordova and Yuri Dozier. [Condition that instigated the ACP on [...] Sushila Tam MD Division of Hospitalist Medicine [facility] [id number] NoteAttending History and Physical Admit Date: 10/05/2024 [...] and other work up. She presented to [place] ED - with worsening left shoulder, back [...] capsule Take 1,000 Units by mouth daily. Zvlabzgoljj-Dmgqompnu-Vtzhdd (Trelegy Ellipta) 100-62.5-25 MCG/ACT aerosol powder Inhale [...] capsule Take 1 capsule by mouth daily. Wyola-3 Fatty Acids (OMEGA 3 500 PO) Take [...] Allergies: Allergies Allergen Re (more content not included)...[facility]03-20-2025 History and physical note* Sushila Tam MD [...] and other work up. She presented to [place] ED - with worsening left shoulder, back [...] Unable to obtain labs and imaging from [place] - Was told she has a complete [...] capsule Take 1,000 Units by mouth daily. Crkzidswcdc-Ebhgdvdso-Smllgj (Trelegy Ellipta) 100-62.5-25 MCG/ACT aerosol powder Inhale [...] capsule Take 1 capsule by mouth daily. Wyola-3 Fatty Acids (OMEGA 3 500 PO) Take [...] suspicion of a metastatic process. Will need PIPE COVERING MOLDER and MBSS for assessment. - Lightheadedness upon [...] as no imaging on file given at [place]. Follow up labs with day team. Thyroid [...] Pending the following - s/p pulmonology and PIPE COVERING MOLDER evaluation Total time spent (which include face to face and non face to face encounters) : 81 minutes. Toxic drug monitoring/narrow therapeutic index drug monitoring : # Drug name : NA # Route administered : NA # Method of monitoring : NA Extended Emergency Contact Information Primary Emergency Contact: Glenny Cordova Mobile Relation: Daughter Secondary Emergency Contact: Yuri Dozier Mobile Relation: Son [employer]ING Karina Fernando : 1950 Primary Care Physician: TU HECTOR DO The patient and/or family/surrogate voluntarily agreed to participate in ACP services. Patient s cognitive capacity: intact Code Status: [X] [FULL CODE - Continue all advanced life support: CPR,intubation,invasive procedures] [_] [DNR-CCA - DO NOT do CPR, intubation] [_] [DNR-MUSIC THERAPY TEACHER - Comfort care only] [_] DNR form [was/was not] signed Summary of discussion: The patient health care POA/ surrogate is the following: Catherine Cordova and Yuri Dozier. [Condition that instigated the ACP on [...] Sushila Tam MD Division of Hospitalist Medicine [facility] documented in this [facility]03-20-2025 Discharge summary [facility] Medical Records Department [address] [place] [address] Emergency Department Summary 10/05/24 MR#: [id number] Acct: [id number] Name: KARINA FERNANDO Rep #:[id number] : 1950 73 From: Marty Woods DO [...] she tries to get up and walk. [facility] Medical History COPD (chronic obstructive pulmonary disease) [...] 2.5 mg/3 mL 2.5 mg inhalation PRN ID N 09/22/24 Unknown History (0.083 %) solution [...] Will attempt to transfer the patient to [facility] as she has a EBUS scheduled on Wednesday. Discussed case with hospitalist at [facility] Dr. Rodriguez who accept patient for transfer. [...] % (Auto) 63.2 Lymph % (Auto) 23.3 Green % (Auto) 12.9 H Eos % (Auto) [...] 2. Cardiomegaly with mild congestion. Reading Location: [facility] Chest CTA 10/05/24 15:40 IMPRESSION: 1. No pulmonary embolism is identified. Some of the distal pulmonary arteries cannot be evaluated due to suboptimal opacification. 2. 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 Associated atelectasis of the lingula, new since prior exam. 3. Moderate esophageal hiatal hernia. 4. 2.5 cm subpleural nodule of the left lower lobe, unchanged. Reading Location: [facility] Discharge Plan Triage Chief Complaint: Shortness of [...] DO [Primary Care Provider] - Print Language: Macedonian Disposition Disposition: DC/Tx to Another Type of HCF What to do if you have Problems For any increased pain, shortness of breath, bleeding, nausea or vomiting, chestpain, or any unexpected problems, contact your Primary Care Provider. Call [facility] ([phone]) or report tothe closest Emergency Room. Call 911 if necessary. 10/05/24 1720 Cosigner Signature (if applicable): CC: Dr. Tu Hector DO ~ Signed [facility]03-20-2025 Radiology Diagnostic study note [facility] Imaging Services [address] [place] [address] CTA Chest W/WO Contrast MR#: [id number] Acct: [id number] Name: KARINA FERNANDO Rep #: [id number] : 1950 F 73 From: Talya Daniel MD PCP: Dr. Tu Hector, DO Status: REG ER Study:CTA Chest W/WO Contrast Date of Exam: 10/05/24 Exam# [id number] Ordering Dr: Pedro Luis Woods DO EXAM: [...] left lower lobe, unchanged. [facility] CC: Dr. Tu Hector DO; Dr. Marty Woods DO ~ Platform Architect: Signed [facility]03-20-2025 Radiology Diagnostic study note [facility] Imaging Services [address] [place] [address] Chest PA and Lateral MR#: [id number] Acct: [id number] Name: KARINA FERNANDO Rep #: [id number] : 1950 F 73 From: Talya Daniel MD PCP: Dr. Tu Hector DO Status: REG ER Study:Chest PA and Lateral Date of Exam: 10/05/24 Exam# [id number] Ordering Dr: Pedro Luis Woods DO EXAM: [...] 2. Cardiomegaly with mild congestion. [facility] CC: Dr. Tu Hector DO; Dr. Marty Woods DO ~ Platform Architect: Signed [facility]03-20-2025 Discharge summary Author Marty Woods [facility] Note Date/Time October 05, 2024 5:[address] [facility] Medical Records Department [address] [place] [address] Emergency Department Summary 10/05/24 MR#: [id number] Acct: [id number] Name: KARINA FERNANDO Rep #:[id number] : 1950 73 From: Marty Woods DO [...] she tries to get up and walk. [facility] Medical History COPD (chronic obstructive pulmonary disease) [...] 2.5 mg/3 mL 2.5 mg inhalation PRN ID N 09/22/24 Unknown History (0.083 %) solution [...] Will attempt to transfer the patient to [facility] as she has a EBUS scheduled on Wednesday. Discussed case with hospitalist at [facility] Dr. Rodriguez who accept patient for transfer. [...] % (Auto) 63.2 Lymph % (Auto) 23.3 Green % (Auto) 12.9 H Eos % (Auto) [...] 2. Cardiomegaly with mild congestion. Reading Location: [facility] Chest CTA 10/05/24 15:40 IMPRESSION: 1. No pulmonary embolism is identified. Some of the distal pulmonary arteries cannot be evaluated due to suboptimal opacification. 2. 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 Associated atelectasis of the lingula, new since prior exam. 3. Moderate esophageal hiatal hernia. 4. 2.5 cm subpleural nodule of the left lower lobe, unchanged. Reading Location: [facility] Discharge Plan Triage Chief Complaint: Shortness of [...] DO [Primary Care Provider] - Print Language: Macedonian Disposition Disposition: DC/Tx to Another Type of HCF What to do if you have Problems For any increased pain, shortness of breath, bleeding, nausea or vomiting, chestpain, or any unexpected problems, contact your Primary Care Provider. Call [facility] ([phone]) or report to the closest Emergency Room. Call 911 if necessary. 10/05/24 1720 <Electronically signed by Marty Woods DO> Cosigner Signature (if applicable): CC: Dr. Tu Hector DO ~ Signed [facility] Work Phone: 1(534) 495-655603-20-2025 Telephone encounter Note* Telephone Encounter - Sydnee Sy - 10/05/2024 1:52 PM EDT Patient is active with [facility] and [facility] for EBUS/ENB 64894/93686 per code check [facility]Mhbjvw99-06-9156 Miscellaneous Notes* Telephone Encounter - Sydnee Sy - 10/05/2024 1:52 PM EDT Patient is active with [facility] for EBUS/ENB 59279/67405 per code check * Telephone Encounter - Ronda Malloy, RN - 10/05/2024 1:10 PM EDT Instructions EBUS Endobronchial Ultrasound Procedure Date: October 09, 2024 Time: 1:30 PM Arrival Time: 12:00 PM Physician: Dr. Mejia Location: [facility], Endoscopy Department, [address] [place] [address] Please arrive at the hospital registration desk 1.5 hours prior to scheduled start of procedure. Make sure you have a known responsible adult to transport you home from the hospital as you will not be permitted to drive. Your procedure will be cancelled if you do not have someone to take you home. You can only use a taxi/bus/Uber/medical nascar driver if you have a known responsible adult to go with you. You may use [employer] Super[employer] Parking. Each patient will receive one validation ticket for Service [employer] Supervisor Parking. Do not drink alcohol before or [...] at 11:[address] Johnson at [address] [place] [address]. [address], [place], [address] to discuss results. Things to look for post procedure: Fever greater than 101F Coughing up/spitting up bright red blood greater than a teaspoon Increased Shortness of breath/distress and/ or sudden onset of chest pain (call 911 and head to [facility] emergency [facility]) You will be sent [...] If you have any questions, please call: [phone] RN Clinical Coordinator [facility] Pulmonary Medicine [address] [place] [address], [address] [place], [place] [id number] Procedure placed on physician's outlook calendar? yes [...] Patient voices understanding? Yes documented in this [facility]03-20-2025 Telephone encounter Note* Telephone Encounter - Ronda Malloy RN - 10/05/2024 1:10 PM EDT Instructions EBUS Endobronchial Ultrasound Procedure Date: October 09, 2024 Time: 1:30 PM Arrival Time: 12:00 PM Physician: Dr. Mejia Location: [facility], Endoscopy Department, [address] [place] [address] Please arrive at the hospital registration desk 1.5 hours prior to scheduled start of procedure. Make sure you have a known responsible adult to transport you home from the hospital as you will not be permitted to drive. Your procedure will be cancelled if you do not have someone to take you home. You can only use a taxi/bus/Uber/medical nascar driver if you have a known responsible adult to go with you. You may use Service Crew Supervisor Parking. Each patient will receive one validation ticket for Service Crew Supervisor Parking. Do not drink alcohol before or [...] AM with Dr. Johnson at [address] [facility] [address], [place], [address] to discuss results. Things to look for post procedure: Fever greater than 101F Coughing up/spitting up bright red blood greater than a teaspoon Increased Shortness of breath/distress and/ or sudden onset of chest pain (call 911 and head to [facility] emergency [facility]) You will be sent [...] If you have any questions, please call: [phone] RN Clinical Coordinator [facility] Pulmonary Medicine [address] [place] [address], [address] [place] [address] Procedure placed on physician's outlook [...] with patient? yes Patient voices understanding? Yes [facility] [id number] Telephone encounter Note* Telephone Encounter - Aixa Roche RCP - 10/03/2024 3:12 PM EDT Navigator contacted the office of Rhiannon Georges CNP at [facility]. Requested pulmonary function test and will scanned to media tab when available. [facility] HospitalEexgcm04-03-2690 Miscellaneous Notes* Telephone Encounter - Aixa Roche RCP - 10/03/2024 3:12 PM EDT Navigator contacted the office of Rhiannon Georges CNP at [facility]. Requested pulmonary function test and will scanned to media tab when available. * Telephone Encounter - Aixa Roche RCP - 10/03/2024 1:27 PM EDT Discussed with Dr. Johnson during [facility] appt. Patient has a pericardial effusion and cardiac lesion. She has been lightheaded for a few days and expedited cardiology eval is recommended. Spoke with cardiology office at [phone] and arranged for appt with Dr. Luis at [address] [place] [address] Johnson will send patient right over. * Telephone Encounter - Aixa Roche RCP - 10/03/2024 12:19 PM EDT Navigator received request from cardiothoracic surgery office to assist with expediting lung noduleclinic evaluation. Patient lives far away and CTS is hoping patient can be seen while on campus. Patient was seen by Dr. [place] Fortune this morning and needs pulmonary evaluation prior to surgical consideration. Verified prior images and reports from [facility] are available for review in PACS.Scanned imaging reports including CT chest imaging, thyroid imaging and provider office notes from medical oncology and pulmonary in [place] to the media tab. Patient will see Dr. Dayna Kamara now to further evaluate left hilar mass and adenopathy firstnoted on CT imaging 09/13/2024 in [place]. documented in this [facility]03-18-2025 History of Present illness Narrative* Wilfrido Luis, - 10/03/2024 2:30 PM EDT Images from the original note were not included. [facility]ovascular Group Cardiology Note DATE of SERVICE:10/03/24 TIME of SERVICE: 2:41 PM Chief Complaint: Chief Complaint Patient presents with New Patient Shortness of Breath >1yr History of PresentIllness: Karina Fernando is a 73 y.o. female with a long history of tobacco use who was evaluated for shortness of breath. 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 She was seen by pulmonary and scheduled for a biopsy also seen by Dr. Fortune. In the meantime however an echocardiogram that was done at [facility] reported a small pericardial effusion and a mass on the patient's right intra-atrial septum. Her biopsy was canceled and she was referred here to cardiology for an evaluation. I reviewed the echocardiogram that was done at [facility], there is a very small hemodynamically insignificant [...] Units by mouth daily., Disp: , Rfl: Smmpeoyyucu-Nvwpinyjl-Abygth (Trelegy Ellipta) 100-62.5-25 MCG/ACT aerosol powder , [...] capsule by mouth daily., Disp: , Rfl: Wyola-3 Fatty Acids (OMEGA 3 500 PO), Take [...] Content: Thought content normal. Laboratory Tests: 09/25/24 Echo-Torito (per pulmonary note states the following): 2.0 cm x 1.9 cm spherical mass on the right side of the interatrial septum, a small pericardial effusion with RA collapse. 09/13/24- CTA [facility] Assessment and Plan: BSmall hemodynamically insignificant pericardial [...] hesitate to contact me documented in this encounterSWestern Reserve HospitalOebpni20-71-0746 Telephone encounter Note* Telephone Encounter - Aixa Roche RCP - 10/03/2024 1:27 PM EDT Discussed with Dr. Johnson during [facility] appt. Patient has a pericardial effusion and cardiac lesion. She has been lightheaded for a few days and expedited cardiology eval is recommended. Spoke with cardiology office at [phone] and arranged for appt with Dr. Luis at [address] Johnson will send patient right over. [facility] HospitalDginnq11-92-9099 Telephone encounter Note* Telephone Encounter - Aixa Roche RCP - 10/03/2024 12:19 PM EDT Navigator received request from cardiothoracic surgery office to assist with expediting lung noduleclinic evaluation. Patient lives far away and CTS is hoping patient can be seen while on campus. Patient was seen by Dr. [place] Fortune this morning and needs pulmonary evaluation prior to surgical consideration. Verified prior images and reports from [facility] are available for review in PACS.Scanned imaging reports including CT chest imaging, thyroid imaging and provider office notes from medical oncology and pulmonary in [place] to the media tab. Patient will see Dr. Dayna Kamara now to further evaluate left hilar mass and adenopathy firstnoted on CT imaging 09/13/2024 in [place]. [facility] [id number] History of Present illness Narrative* Yaritza Kamara DO - 10/03/2024 12:15 PM EDT [facility] [address] [place] [address] Pulmonary Patient Visit - New 10/03/2024 Referring Physician: TU HECTOR DO Reason for Referral: SOB History of Present Illness Karina Fernando is a 73 y.o. F with history of recurrent sinus infections, COPD on symbicort/albuterol,HTN who presented for a left hilar mass. Stated that in May she began having shortness of breath which worsened until she went to the ER in [place] in August. Found on CT with a left hilar mass, left upper lobe pleural-based mass, and moderate pericardial effusion. Evaluated by oncology and recommended for PET/CT, MRI brain, and biopsy. Established with pulmonology and had been planned forEBUS in [place] but canceled after TTE demonstrated a right [...] Medications Medication Documentation Review Audit Reviewed by Yaritza Johnson DO (Physician) on 10/03/24 at 1703 Medication Order Taking? Sig Documenting Provider Last Dose Status acetaminophen (Tylenol Extra Strength) 500 MG tablet [id number] Yes Take by mouth. Historical Provider, MD Not Taking Active albuterol (Ventolin HFA) 108 (90 Base) MCG/ACT inhaler [id number] Inhale 2 puffs every 4 hours as needed for wheezing or shortness of breath. Yaritza Kamara, DO Active busPIRone (Buspar) 10 MG tablet [id number] Yes Take 10 mg by mouth 3 times daily as needed. Slick Garcia MD Taking Active cetirizine (ZyrTEC) 10 MG tablet [id number] Yes Take 10 mg by mouth daily. Historical ProviderMD Taking Active cholecalciferol (Vitamin D-3) 25 MCG (1000 UT) capsule [id number] Yes Take 1,000 Units by mouth daily. Historical ProviderMD Active Fylgywojptw-Xvirhlhlq-Xxyoev (Trelegy Ellipta) 100-62.5-25 MCG/ACT aerosol powder [id number] Inhale 1 Inhalation daily. Yaritza Johnson, DO Active gabapentin (Neurontin) 300 MG capsule [id number] Yes Take 300 mg by mouth 3 times daily. Historical MD Jose Not Taking Active hydroCHLOROthiazide (HYDRODiuril) 25 MG tablet [id number] Yes Take 25 mg by mouth daily. Historical ProviderMD Taking Active loratadine (Claritin) 5 MG chewable tablet [id number] Yes Chew 5 mg daily. Historical ProviderMD Active Melatonin 2.5 MG chewable tablet [id number] Yes Chew Daily as needed. Slick Garcia MD Not Taking Active meloxicam (Mobic) 15 MG tablet [id number] Yes Take by mouth daily. Historical ProviderMD Not TakingActive Multiple Vitamin (multivitamin) capsule [id number] Yes Take 1 capsule by mouth daily. Historical ProviderMD Active Wyola-3 Fatty Acids (OMEGA 3 500 PO) [id number] Yes Take by mouth daily. Historical ProviderMD Taking Active oxyCODONE-acetaminophen (Percocet) 5-325 MG tablet [id number] Yes Historical ProviderMD Taking Active simvastatin (Zocor) 20 MG tablet [id number] Yes Take 20 mg by mouth Nightly. Historical MD Jose Taking Active traZODone (Desyrel) 100 MG tablet [id number] Yes Take 100 mg by mouth Nightly. Historical MD Jose Taking Active valACYclovir (Valtrex) 500 MG tablet [id number] Yes Take by mouth daily. Historical Provider, Not Taking Active Vitamin E 268 MG (400 UNIT) capsule [id number] Yes Take by mouth daily. Historical Provider, [...] or concerns answered to satisfaction and understood. Yaritza Johnson DO 5:08 PM 10/03/24 Pulmonary and Critical Care Medicine documented in this [facility]03-18-2025 Instructions* Patient Instructions* Jay Zimmerman MA - 10/03/2024 12:15 PM EDT YOUR APPOINTMENT TODAY WAS WITH THE [facility] LUNG NODULE CLINIC, COPD CLINIC, PULMONARY AND SLEEP MEDICINE OFFICE. PLEASE CALL OUR OFFICE AT [phone] IF YOU HAVE NOT RECEIVED YOUR TEST [...] to make improvements. COVID-19 VACCINATION INFORMATION: PH. [phone] [facility]/CORONAVIRUS/VACCINE [facility] Scheduling [phone] [facility] Sleep Scheduling [phone] documented in this [facility]03-18-2025 NoteOrders Placed This Encounter Procedures MR brain w and wo contrast Standing Status: Future Standing Expiration Date: 10/03/2025 Order Specific Question: Record Decision Support information? Answer: No Order Specific Question: Decision Support Exception Answer: Emergency Medical Condition (CHARLY) [1] Order Specific Question: Does the patient [...] Decision Support Exception Answer: Emergency Medical Condition (CHARLY) [1] Order Specific Question: Is this the initial or subsequent exam for the patient's oncological treatment? Answer: Initial Creatinine, Serum Standing Status: Future Number of Occurrences: 1 Standing Expiration Date: 10/03/2025[facility]03-18-2025 History of Present illness Narrative* Lizandro Fortune MD - 10/03/2024 11:15 AM EDT Images from the original note were not included. [facility] CARDIOVASCULAR & THORACIC SURGERY [address] [facility] [address] Dept: [phone] Dept Loc: [phone] Visit type: New Reason for Visit: AP [...] effusion. Per note, pt had presented to [facility] in August 2023 for dyspnea. CTA [...] tablet, Take by mouth., Disp: , Rfl: Wyola-3 Fatty Acids (OMEGA 3 500 PO), Take [...] This note may have been dictated using [employer] Medical Practice Edition 2.6 and/or Twingly Voice Recognition Feature. The document was proofread, however unrecognized voice recognition rn employee health errors may be present. documented in this [facility]03-13-2025 Evaluation note* Diagnosis Onset Date [...] Mediastinal lymphadenopathy acute January 02, 2025 9:04am [facility] Work Phone: 1(696) 996-768803-13-2025 Evaluation note* Diagnosis Onset Date Resolution Status [...] Mediastinal lymphadenopathy acute January 23, 2025 9:03am [facility] Work Phone: [phone]) 405-113903-04-2025 Note* Exam Date Time Procedure Performing Provider Status 09/19/24 12:06 PM US Thyroid YURI CONKLIN DO; Auth (Verified) [id number] ORIGINAL EXAMINATION: ULTRASOUND OF THE THYROID WITH [...] four nodules should be followed. Interpreted by: Yuri Conklin DO Preliminary Report By: Yuri Conklin DO Electronically signed By Yuri Conklin DO Dictated Date: 09/19/2024 12:58:33 PM Prelim Date: 09/19/2024 1:04:03 PM Sign Date: 09/19/2024 1:04:03 PM Ordering Provider: [facility]03-03-2025 Evaluation note* Diagnosis Onset Date Resolution Status Admit Date Mediastinal lymphadenopathy acute September 18, 2024 12:35pm Lung mass inactive September 18 12:35pm Mediastinal lymphadenopathy acute September 22, 2024 8:56am Shortness of breath acute September 22, 2024 8:56am Shortness of breath acute September 28, 2024 9:34am [facility] Work Phone: [phone] 177-229903-03-2025 Evaluation note* Diagnosis Onset Date Resolution Status [...] Mediastinal lymphadenopathy acute December 12, 2024 8:07am [facility] Work Phone: 1(816) 559-264103-03-2025 Evaluation note* Diagnosis Onset Date Resolution Status [...] Mediastinal lymphadenopathy acute January 02, 2025 9:04am [facility] Work Phone: 1(383) 524-429602-27-2025 Evaluation + Plan note Future Scheduled Tests Laboratory* Basic Metabolic Panel 09/14/24 * Thyroid Stimulating Hormone 02/02/24 * Lipid Profile 09/14/24 * Lipid Profile 02/02/24 * Hepatitis C Antibody IgG 02/02/24 * Vitamin D Level 09/14/24 * Vitamin D Level 02/02/24 * Complete Metabolic Panel 02/02/24 [facility] 02-16-2025 Telephone encounter Note* Telephone Encounter - Kalie Gonzalez MA - 09/03/2024 8:36 AM EST Patient given results and verbalized understanding of instructions given. Kalie Gonzalez MA [facility]02-16-2025 Telephone encounter Note* Telephone Encounter - Kalie Gonzalez MA - 09/03/2024 8:36 AM EST ----- Message from Renetta Villalobos APRN.BILLBOARD POSTER HELPER sent at 09/03/2024 8:12 AM EST ----- Please advise patient the COVID/flu/RSV test was negative. [facility]02-16-2025 Miscellaneous Notes* Telephone Encounter - Kalie Gonzalez MA - 09/03/2024 8:36 AM EST Patient given results and verbalized understanding of instructions given. Kalie Gonzalez MA * Telephone Encounter - Kalie Gonzalez MA - 09/03/2024 8:36 AM EST ----- Message from Renetta Villalobos APRN.BILLBOARD POSTER HELPER sent at 09/03/2024 8:12 AM EST ----- Please advise patient the COVID/flu/RSV test was negative. documented in this encounterMount [facility]02-15-2025 [id number] (AGENT OF COVID-19) RNA: Not detected INFLUENZA A RNA: Not detected INFLUENZA B RNA: Not detected RESPIRATORY SYNCYTIAL VIRUS (RSV) RNA: Not detectedOhiohealth Mansfield HospitalComment on above:Performed By: #### [id number]- [id number] #### [facility] CLIA [id number] [address] [place] [address] [place] [id number] NoteHNO ID: [id number] Author: DWAYNE LITTLEJOHN MD Service: ? Author Type: Physician [...] Patient reports remotely wolff (more content not included)...[facility]02-15-20[facility] History of Present illness Narrative* Dwayne Littlejohn MD - 09/02/2024 1:32 PM EST [...] had thyroid biopsy. Encouraged follow-up with PCP. Dwayne Littlejohn MD documented in this encounterMount Carmel Health System11-13-2024 NoteHNO ID: [id number] Author: SERGIO MOHR PA-C Service: ? Author Type: Physician Gis Analyst Type: Progress Notes Filed: 05/31/2024 17:48 Note Text: This note was created using Simplebookletter. Subjective Karina Fernando is a 73 year [...] 12/15/2006 Years since quittin.4 (more content not included)...[facility]11-13-2024 History of Present illness Narrative* Sergio Mohr PA-C - 05/31/2024 5:45 PM EST This note was created using THEVAriter. Subjective Karina Fernando is a 73 year [...] FRONTAL/LAT Sergio Mohr PA-C documented in this encounterMount Carmel Health System11-13-2024 History of Present illness Narrative* Rio Osorio [...] PATIENT PRESENTS WITH AN IMPLANTABLE OR ATTACHED AUTO CAMP ATTENDANT: No RADIOLOGY DEPARTMENT: General X-ray: Exam(s) Completed: Chest X-Ray PERIPHERAL IV DATA: Not applicable SIGNED BY: MARTINA Babcock) May 31, 2024 5:12 PM documented in this encounterMount Carmel Health System11-13-2024 NoteHNO ID: [id number] Author: RIO OSORIO RT(R) Service: ? Author Type: [employer] Dynamics Ax Consultant Type: Progress Notes Filed: 05/31/2024 17:17 Note [...] PATIENT PRESENTS WITH AN IMPLANTABLE OR ATTACHED AUTO CAMP ATTENDANT: No RADIOLOGY DEPARTMENT: General X-ray: Exam(s) Completed: Chest X-Ray PERIPHERAL IV DATA: Not applicable SIGNED BY: RT Yoko(Avila) May 31, 2024 5:12 [facility]08-05-2024 Hospital Discharge instructions Patient Education 02/21/2024 [...] for signs of illness. If the pet baggage screener won t allow this, contact your local [...] stopped after 5 minutes of firm pressure 9021-5320 [employer]. [address] [place] [address]. All rights reserved. This information is not intended as a substitute for professional medical care. Always follow yourhealthcare professional's instructions. Follow Up Care 02/21/2024 14:22:21 With:TU HECTOR DO Address: [address] [facility] [place] [address] [phone] When:2-[address] [facility] 08-04-2024 Hospital Discharge instructions Patient Education [...] or varicose veins, don t sit or bingo cashier one place for long periods of time. [...] Weakness or dizziness Shaking chills Drenching sweats [phone] 10-[address] [place] [address]. All rights reserved. This information is not intended as a substitute for professional medical care. Always follow yourhealthcare professional's instructions. Follow Up Care 02/20/2024 15:15:59 With:TU HECTOR DO Address: [address] [place] [address] [place] [address]- [phone] When:2-[address] [facility] 08-04-2024 Note Discharge Instructions Thank you for allowing [facility] to assist you with your healthcare needs. The following is importantdischarge information regarding your hospital visit. What to Do Next Instructions from Your Care Team Discharge ED Outpatient Vascular Lab - Ordered -- Test Requested: DVT study LLE (doppler), Lower extremity, Left, Test Reason: Edema, Mon-Fri 8am-4:30pm: Call [phone] at 7:30am to schedule a same day appointment for testing. Please be aware there may be a short wait time., Weekend Holiday 8am-6... Post Acute Orders No qualifying data available. You Need to Schedule the Following Appointments Follow Up with TU HECTOR DO When:Within 2-4 days Where:[address] [facility] [place] [address] [phone] Allergies Ceclor Hives Fosamax Swelling / lump [...] Hypertension Unchanged Misc Medication (Mult. Vitamins by [facility]) Carotomax, OmegaGuard, Osteo Matrix, Sona-Palak Gold w/ [...] or varicose veins, don t sit or bingo cashier one place for long periods of time. [...] Weakness or dizziness Shaking chills Drenching sweats [phone] [employer]. [address] [place] [address], [place] [address]. All rights reserved. This information is not intended as a substitute for professional medical care. Always follow yourhealthcare professional's instructions. Additional Information VACCINATE! IT SAVES LIVES! Members of the community who have not yet received the COVID-19 vaccine and would like to receive it can visit one of [facility] vaccine clinics. There are many vaccine clinic locations within the [facility]. For locations and available times, please visit www.[email or web address]/. It is important to note that some COVID mobile vaccine clinics are held outdoors and may be canceled in rainy or stormy conditions. To learn more about pediatric vaccinations (ages 5-11), we invite you to visit the [facility] webpage. https://www.[email or web address]/pages/0004-[email or web address]-Luvmjdumun-Gbqzp-Qum stions.htmlTo learn more about the COVID-19 vaccine, we invite you to visit the CDC website for a list of frequently asked questions. https://www.cdc.gov/coronavirus/2019-ncov/vaccines/faq.html [facility] Patient Portal Access Instructions: Stay connected with your healthcare team and access your personal medical information anytime with the [facility] Patient Portal. If you would like a full copy of your medical records please contact the [facility] Medical Records Department Wednesday through Wednesday between 8a.m. and 4:30p.m. Please follow the directions below to access the portal: 1.Access the email account you provided upon registration to the hospital.2.Look for an invitation email from [facility].3.Open the email and access the invitation link: Accept Invitation to [facility]4.Fill in the required abbasi to create your account. Sign into [email or web address] with your username and password that you [...] you will allow to register on the [facility] Patient Portal for access to your information. You can also access the [facility] Patient Portal on the [place]. Simply click on Health Records under [employer] and then click on the Torito logo. HOW TO SAFELY DISPOSE OF PRESCRIPTION [...] Call your local pharmacy or go to [email or web address] to find one close to you.3.Make use of household items: Use cat litter or old coffee grounds to dispose medications if other options arenot available. Mix your drugs with these household products, seal them in an airtight container andthrow it into the garbage. Call [facility]: [phone] to be sure your drugs can be [...] aware that I should contact my doctor. Patient/Psychiatric Security Nurse Signature: Date/Time: Relationship to Patient: Witness Name/Signature: Date/Time: [facility]07-26-2024 Hospital Discharge instructions Patient Education 02/11/2024 [...] a prescription antihistamine, oral diphenhydramine is an lert-yqg-qubdroj antihistamine available at pharmacies and grocery stores. [...] or colored drainage from the affected area 4396-3729 [employer] [address] [place] [address]. All rights reserved. This information is not intended as a substitute for professional medical care. Always follow yourhealthcare professional's instructions. Follow Up Care 02/11/2024 06:26:14 With:TU HECTOR DO Address: [address] [facility] [place] [phone] When:2-[address] [facility] 07-26-2024 Emergency department Discharge summary Discharge Instructions Thank you for allowing [facility] to assist you with your healthcare needs. The following is importantdischarge information regarding your hospital visit. Diagnosis from Today's Visit Allergic reaction to medication What to Do Next Instructions from Your Care Team No qualifying data available. Post Acute Orders No qualifying data available. You Need to Schedule the Following Appointments Follow Up with TAWNY, TU DO When:Within 2-4 days Where:[address] [facility] [place] [address]- [phone] Allergies Ceclor Hives Fosamax Swelling / lump [...] a prescription antihistamine, oral diphenhydramine is an rlxg-nyx-jxdadiy antihistamine available at pharmacies and grocery stores. [...] or colored drainage from the affected area 5215-9123 [employer]. [address] [place] [address], [place] [address]. All rights reserved. This information is not intended as a substitute for professional medical care. Always follow yourhealthcare professional's instructions. Additional Information VACCINATE! IT SAVES LIVES! Members of the community who have not yet received the COVID-19 vaccine and would like to receive it can visit one of [facility] vaccine clinics. There are many vaccine clinic locations within the [facility]. For locations and available times, please visit www.[email or web address].[place].gov/. It is important to note that some COVID mobile vaccine clinics are held outdoors and may be canceled in rainy or stormy conditions. To learn more about pediatric vaccinations (ages 5-11), we invite you to visit the [facility] webpage. https://www.[email or web address].org/pages/8727-Jyfkw-Nnrrrhdxvci-Xbawejdxib-Zefsv-Dix stions.htmlTo learn more about the COVID-19 vaccine, we invite you to visit the CDC website for a list of frequently asked questions. https://www.cdc.gov/coronavirus/2019-ncov/vaccines/faq.html [facility] Patient Portal Access Instructions: Stay connected with your healthcare team and access your personal medical information anytime with the [facility] Patient Portal. If you would like a full copy of your medical records please contact the [facility] Medical Records Department Wednesday through Wednesday between 8a.m. and 4:30p.m. Please follow the directions below to access the portal: 1.Access the email account you provided upon registration to the [facility].2.Look for an invitation email from [facility].3.Open the email and access the invitation link: Accept Invitation to [facility]4.Fill in the required abbasi to create your account. Sign into [email or web address] with your username and password that you [...] you will allow to register on the [facility] Patient Portal for access to your information. You can also access the [facility] Patient Portal on the [place]. Simply click on Health Records under [employer] and then click on the [facility] logo. HOW TO SAFELY DISPOSE OF PRESCRIPTION [...] Call your local pharmacy or go to [email or web address] to find one close to you.3.Make use of household items: Use cat litter or old coffee grounds to dispose medications if other options arenot available. Mix your drugs with these household products, seal them in an airtight container andthrow it into the garbage. Call [facility]: [phone] to be sure your drugs can be [...] aware that I should contact my doctor. Patient/Psychiatric Security Nurse Signature: Date/Time: Relationship to Patient: Witness Name/Signature: Date/Time: [facility]07-26-2024 Note ORIGINAL EXAMINATION: ONE XRAY VIEW [...] Date: 02/11/2024 7:17:20 AM Ordering Provider: [facility] Progress note Assumed care of patient at this time. Digitally Signed by Maggy Park RN on 02/11/2024 07:[address] [facility]07-26-2024 NoteSinus rhythm Electronic Signature: NILTON CASTORENA MD 02/11/2024 06:53:00[facility] 07-19-2024 Hospital Discharge instructions Patient Education [...] for signs of illness. If the pet baggage screener won t allow this, contact your local [...] stopped after 5 minutes of firm pressure [phone] [employer] [address] [place] [address], [place] [address]. All rights reserved. This information is not intended as a substitute for professional medical care. Always follow yourhealthcare professional's instructions. Follow Up Care 02/04/2024 12:56:31 With:TU HECTOR DO Address: [address] [place] [phone] When:2-[address] [facility] 07-19-2024 Emergency department Discharge summary Discharge Instructions Thank you for allowing [facility] to assist you with your healthcare needs. The following is importantdischarge information regarding your hospital visit. Diagnosis from Today's Visit Wound of skin What to Do Next Instructions from Your Care Team No qualifying data available. Post Acute Orders No qualifying data available. You Need to Schedule the Following Appointments Follow Up with TU HECTOR DO When:Within 2-4 days Where:[address] [place] [phone] Allergies Ceclor Hives Fosamax Swelling / lump [...] for signs of illness. If the pet baggage screener won t allow this, contact your local [...] stopped after 5 minutes of firm pressure [employer]. [address] [place] [address]. All rights reserved. This information is not intended as a substitute for professional medical care. Always follow yourhealthcare professional's instructions. Additional Information VACCINATE! IT SAVES LIVES! Members of the community who have not yet received the COVID-19 vaccine and would like to receive it can visit one of [facility] vaccine clinics. There are many vaccine clinic locations within the [facility]. For locations and available times, please visit www.[email or web address].[place].gov/. It is important to note that some COVID mobile vaccine clinics are held outdoors and may be canceled in rainy or stormy conditions. To learn more about pediatric vaccinations (ages 5-11), we invite you to visit the [facility] webpage. https://www.[email or web address].[email or web address]/pages/4769-Lpqdv-Zovxgaqrhba-Jqxptdgefo-Taeyo-Upb stions.htmlTo learn more about the COVID-19 vaccine, we invite you to visit the CDC website for a list of frequently asked questions. https://www.cdc.gov/coronavirus/2019-ncov/vaccines/faq.html [facility] Patient Portal Access Instructions: Stay connected with your healthcare team and access your personal medical information anytime with the [facility] Patient Portal. If you would like a full copy of your medical records please contact the [facility] Medical Records Department Wednesday through Wednesday between 8a.m. and 4:30p.m. Please follow the directions below to access the portal: 1.Access the email account you provided upon registration to the [facility].2.Look for an invitation email from [facility].3.Open the email and access the invitation link: Accept Invitation to [facility]4.Fill in the required abbasi to create your account. Sign into [email or web address] with your username and password that you [...] you will allow to register on the [facility] Patient Portal for access to your information. You can also access the [facility] Patient Portal on the [place]. Simply click on Health Records under [employer] and then click on the playnik logo. HOW TO SAFELY DISPOSE OF PRESCRIPTION [...] Call your local pharmacy or go to http://Resverlogix.Bridgevine/1C6Ou1m to find one close to you.3.Make use of household items: Use cat litter or old coffee grounds to dispose medications if other options arenot available. Mix your drugs with these household products, seal them in an airtight container andthrow it into the garbage. Call [facility]: [phone] to be sure your drugs can be [...] aware that I should contact my doctor. Patient/Psychiatric Security Nurse Signature: Date/Time: Relationship to Patient: Witness Name/Signature: Date/Time: [facility]07-12-2024 Hospital Discharge instructions Patient Education 01/28/2024 [...] for signs of illness. If the pet baggage screener won t allow this, contact your local [...] stopped after 5 minutes of firm pressure [employer]. [address] [place] [address]. All rights reserved. This information is not intended as a substitute for professional medical care. Always follow yourhealthcare professional's instructions. Follow Up Care 01/28/2024 12:46:23 With:TU HECTOR DO Address: [address] [place] [address] [phone] When:2-[address] [facility] 07-12-2024 Note Discharge Instructions Thank you for allowing [facility] to assist you with your healthcare needs. The following is importantdischarge information regarding your hospital visit. Diagnosis from Today's Visit Cat bite What to Do Next Instructions from Your Care Team No qualifying data available. Post Acute Orders No qualifying data available. You Need to Schedule the Following Appointments Follow Up with TU HECTOR DO When:Within 2-4 days Where:[address] [place] [phone] Allergies Ceclor Hives Fosamax Swelling / lump [...] Hypertension Unchanged Misc Medication (Mult. Vitamins by [facility]) Carotomax, OmegaGuard, Osteo Matrix, Sona-Palak Gold w/ [...] MPC, Lymepak, Mondoxyne NL, Monodox, Morgidox, Morgidox 9w510io, Morgidox 7q502ro, Okebo, Oracea, Targadox, Vibramycin, Vibramycin Monohydrate What [...] or life-threatening conditions such as anthrax or Wilmot spotted fever. The benefit of treating a [...] may report side effects to FDA at 0-004-HFD-6877. What other drugs will affect doxycycline? Sometimes it is not safe to use certain medications at the same time. Some drugs can affect your blood levels of other drugs you take, which may increase side effects or make the medications less effective. Other drugs may affect doxycycline, including prescription and orqj-kfp-pvtyhcq medicines, vitamins, and herbal products. Tell your [...] to ensure that the information provided by [employer]. ('Multum') is accurate, up-to-date, and complete, but no guarantee is made to that effect. Drug information contained herein may be time sensitive. [employer] information has been compiled for use by healthcare practitioners and consumers in the [place] and therefore [employer] does not warrant that uses outside of the [place] are appropriate, unless specifically indicated otherwise. [employer] drug information does not endorse drugs, diagnose patients or recommend therapy. [employer] drug information isan informational resource designed to [...] effective or appropriate for any given patient. [employer] does not assume any responsibility for any aspect of healthcare administered with the aid of information [employer] provides. The information contained herein is not intended to cover all possible uses, directions, precautions, warnings, drug interactions, allergic reactions, or adverse effects. If you have questions about the drugs you are taking, check with your doctor, nurse or pharmacist. Copyright 4124-5482 [employer]. Version: 25.01. Revision Date: 03/24/2023. Education Materials Cat Bite [...] for signs of illness. If the pet baggage screener won t allow this, contact your local [...] stopped after 5 minutes of firm pressure [phone] [employer]. [address] [place] [address], [place] [address]. All rights reserved. This information is not intended as a substitute for professional medical care. Always follow yourhealthcare professional's instructions. Additional Information VACCINATE! IT SAVES LIVES! Members of the community who have not yet received the COVID-19 vaccine and would like to receive it can visit one of [facility] vaccine clinics. There are many vaccine clinic locations within the [facility]. For locations and available times, please visit [email or web address]/. It is important to note that some COVID mobile vaccine clinics are held outdoors and may be canceled in rainy or stormy conditions. To learn more about pediatric vaccinations (ages 5-11), we invite you to visit the [facility] webpage. https://www.[facility].org/pages/4419-Npmmh-Kuitpmcvlxq-Uzrnaxbsmj-Esorv-Qmn stions.htmlTo learn more about the COVID-19 vaccine, we invite you to visit the CDC website for a list of frequently asked questions. https://www.cdc.gov/coronavirus/2019-ncov/vaccines/faq.html [facility] Patient Portal Access Instructions: Stay connected with your healthcare team and access your personal medical information anytime with the [facility] Patient Portal. If you would like a full copy of your medical records please contact the [facility] Medical Records Department Wednesday through Wednesday between 8a.m. and 4:30p.m. Please follow the directions below to access the portal: 1.Access the email account you provided upon registration to the hospital.2.Look for an invitation email from [facility].3.Open the email and access the invitation link: Accept Invitation to [facility]4.Fill in the required abbasi to create your account. Sign into [email or web address] with your username and password that you [...] you will allow to register on the [facility] Patient Portal for access to your information. You can also access the [facility] Patient Portal on the [place]. Simply click on Health Records under [employer] and then click on the playnik logo. HOW TO SAFELY DISPOSE OF PRESCRIPTION [...] Call your local pharmacy or go to [email or web address] to find one close to you.3.Make use of household items: Use cat litter or old coffee grounds to dispose medications if other options arenot available. Mix your drugs with these household products, seal them in an airtight container andthrow it into the garbage. Call [facility]: [phone] to be sure your drugs can be [...] that I should contact my do ctor. Patient/Psychiatric Security Nurse Signature: Date/Time: Relationship to Patient: Witness Name/Signature: Date/Time: [facility]12-26-2023 Discharge summary Author Chris Maria [facility] July 13, 2023 5:09pm Note Date/Time July 13, 2023 5:03pm [facility] Medical Records Department [address] [place] [address] Emergency Department Summary 07/13/23 MR#: [id number] Acct: [id number] Name: KARINA FERNANDO Rep #:[id number] : 1950 72 From: Chris Maria MD [...] that her tetanus vaccination is not up-to-date. [facility] <HOPE Davey - Last Filed: 07/13/23 17:08> [facility] Home Medications pantoprazole 40 mg [...] Ox 96 Oxygen Delivery Method Room Air [facility] <HOPE Davey - Last Filed: 07/13/23 17:08> [facility] Treatment and Re-Evaluation :: Patient appears generally [...] Maria MD - Last Filed: 07/13/23 17:09> [facility] MDM Narrative Medical decision making narrative: I have personally performed a face to face assessment of the patient and have reviewed the MANJINDER Note. I performed a substantive portion of [...] your Primary Care Provider. Call [facility] ([phone]) or report to the closest Emergency Room. Call 911 if necessary. 07/13/231708 <Electronically signed by Chris Maria MD> Cosigner Signature (if applicable): 07/13/231707 <Electronically signed by Richard ARNETT> CC: Dr. Tu Hector, DO ~ Signed [facility] Work Phone: [phone]) 785-373907-03-2023 Telephone encounter Note* Telephone Encounter - Marty Daily PA-C - 01/18/2023 9:23 AM EDT PAT orders done [facility] Work Phone: [phone] 212-272907-03-2023 Miscellaneous Notes* Telephone Encounter - Marty Daily PA-C - 01/18/2023 9:23 AM EDT PAT orders done * Telephone Encounter - Dannielle Izaguirre - 01/15/2023 4:03 PM EDT No PAT- H&P day of surgery Case# [id number] Surgery: Waqas 01/21/23 @ 7:30am Procedure: Resection mass left elbow Dx: Left elbow mass Anesthesia: General [employer]-no prior auth needed for outpatient Patient aware of surgery date and time documented in this [facility]06-30-2023 Telephone encounter Note* Telephone Encounter - Dannielle Izaguirre - 01/15/2023 4:03 PM EDT No PAT- H&P day of surgery Case# [id number] Surgery: Waqas 01/21/23 @ 7:30am Procedure: Resection mass left elbow Dx: Left elbow mass Anesthesia: General [employer]-no prior auth needed for outpatient Patient aware of surgery date and time [id number] History of Present illness Narrative* Oz Salazar MD - 01/12/2023 10:15 AM EDT [facility] [address] [place] [address] [address] [facility] [id number] Dept: [phone] Dept Chief Complaint Patient presents with New [...] tablet Take 25 mg by mouth daily. Wyola-3 Fatty Acids (OMEGA 3 500 PO) Take [...] 01/12/2023 at 8:50 PM documented in this [facility]06-14-2023 Note ORIGINAL EXAMINATION: BONE DENSITOMETRY [...] Date: 12/30/2022 2:06:23 PM Ordering Provider: [facility]06-14-2023 Note ORIGINAL EXAMINATION: BONE DENSITOMETRY 12/30/2022 11:47 [...] Jaswinder Holbrook DO Preliminary Report By: Marty Hampden Electronically signed By Jaswinder Holbrook DO Dictated Date: 12/30/2022 1:56:14 PM Prelim Date: 12/30/2022 2:06:23 PM Sign Date: 12/30/2022 2:06:23 PM Ordering Provider: [facility] [id number] Hospital Discharge instructions Patient Education 12/20/2022 14:28:05 [...] for signs of illness. If the pet baggage screener won t allow this, contact your local [...] stopped after 5 minutes of firm pressure [phone] [employer]. [address] [place] [address]. All rights reserved. This information is not intended as a substitute for professional medical care. Always follow yourhealthcare professional's instructions. Follow Up Care 12/20/2022 13:35:43 With:TU HECTOR DO Address: [address] [facility] [place] [phone] When:2-[address] [facility] 06-04-2023 Emergency department Discharge summary Discharge Instructions Thank you for allowing [facility] to assist you with your healthcare needs. The following is importantdischarge information regarding your hospital visit. Diagnosis from Today's Visit bitten by cat What to Do Next Instructions from Your Care Team No qualifying data available. Post Acute Orders No qualifying data available. You Need to Schedule the Following Appointments Follow Up with TU HECTOR DO When Within 2-4 days Where: [address] [facility] [place] [address]- [phone] Allergies Ceclor (Hives) Fosamax (Swelling / lump [...] for signs of illness. If the pet baggage screener won t allow this, contact your local [...] stopped after 5 minutes of firm pressure [phone] [employer]. [address] [place] [address], [place] [address]. All rights reserved. This information is not intended as a substitute for professional medical care. Always follow yourhealthcare professional's instructions. Additional Information VACCINATE! IT SAVES LIVES! Members of the community who have not yet received the COVID-19 vaccine and would like to receive it can visit one of [facility] vaccine clinics. There are many vaccine clinic locations within the [facility]. For locations and available times, please visit [email or web address]/. It is important to note that some COVID mobile vaccine clinics are held outdoors and may be canceled in rainy or stormy conditions. To learn more about pediatric vaccinations (ages 5-11), we invite you to visit the [facility] webpage. https://www.[facility].org/pages/2119-Tqfxk-Hdqaqzcnwlo-Wfmbfyoyei-Trfzx-Ixf stions.htmlTo learn more about the COVID-19 vaccine, we invite you to visit the CDC website for a list of frequently asked questions. https://www.cdc.gov/coronavirus/2019-ncov/vaccines/faq.html [facility] Patient Portal Access Instructions: Stay connected with your healthcare team and access your personal medical information anytime with the [facility] Patient Portal. If you would like a full copy of your medical records please contact the [facility] Medical Records Department Wednesday through Wednesday between 8a.m. and 4:30p.m. Please follow the directions below to access the portal: 1.Access the email account you provided upon registration to the hospital.2.Look for an invitation email from [facility].3.Open the email and access the invitation link: Accept Invitation to [facility]4.Fill in the required abbasi to create your account. Sign into [email or web address] with your username and password that you [...] you will allow to register on the [facility] Patient Portal for access to your information. You can also access the [facility] Patient Portal on the [employer] manjinder. Simply click on Health Records under [employer] and then click on the Torito logo. HOW TO SAFELY DISPOSE OF PRESCRIPTION [...] Call your local pharmacy or go to [email or web address] to find one close to you.3.Make use of household items: Use cat litter or old coffee grounds to dispose medications if other options arenot available. Mix your drugs with these household products, seal them in an airtight container andthrow it into the garbage. Call [facility]: [phone] to be sure your drugs can be [...] that I should contact my do ctor. Patient/Psychiatric Security Nurse Signature: Date/Time: Relationship to Patient: Witness Name/Signature: Date/Time: [facility]06-04-2023 History of Present illness Narrative * Jose F Cruz APRN.BILLBOARD POSTER HELPER - 12/20/2022 12:58 PM EDT Images from [...] Dyazide [Triamterene-Hydrochlorothiazid], Eryc [Erythromycin], Penicillins, Percodan [Oxycodone Cte-Eyxzmtyww-Udx], and Ultram [Tramadol Hcl] MEDICATIONS hydroCHLOROthiazide 25 [...] evaluation care. Patient will be seen at [facility]. Jose F Cruz APRN.MARIA G [facility] Plan note Future Scheduled Tests Laboratory* Thyroid Stimulating Hormone 07/03/22 * Lipid Profile 07/03/22 * Hepatitis C Antibody IgG 07/03/22 * Complete Metabolic Panel 07/03/22 Radiology* CT Low Dose Lung Cancer Screening (LDCT) 08/20/22 * BD Bone Density DEXA Axial Skeleton 07/27/22 [facility] 07-01-2021 Evaluation + Plan note Future Scheduled Tests Laboratory* Thyroid Stimulating Hormone 01/16/21 * Lipid Profile 01/16/21 * Complete Metabolic Panel 01/16/21 * COVID-19 Only (AO) 07/21/21 Radiology* CT Abdomen and Pelvis w/ contrast 10/21/21 [facility] 07-01-2021 Evaluation + Plan note Future Scheduled Tests Laboratory* Thyroid Stimulating Hormone 01/16/21 * Lipid Profile 01/16/21 * Complete Metabolic Panel 01/16/21 * COVID-19 Only (AO) 07/21/21 [facility] 06-29-2021 History of Present illness Narrative* [...] 14, 2021 10:19 AM [facility] History of Present illness Narrative* Laura Lebron [...] 17, 2020 2:12 PM documented in [facility] note Future Appointments Appointment Date:10/24/2021 02:30:00 PM Scheduled Provider: Location:[facility] Appointment Type:MA Mammogram Screening Bilateral w/ Avinash Future Scheduled Tests Laboratory* Thyroid Stimulating Hormone 01/16/21 * Lipid Profile 01/16/21 * Complete Metabolic Panel 01/16/21 * COVID-19 Only (AO) 07/21/21 Radiology* MA Mammo Screening Bilateral w/ Avinash 10/24/21 * CT Abdomen and Pelvis w/ contrast 10/21/21 [facility] evaluation + Plan note Future Appointments Appointment Date:03/09/2023 03:00:00 PM Scheduled Provider:TU HECTOR DO Location[facility] Appointment Type:PC Wellness Medicare Future Scheduled Tests Laboratory* Thyroid Stimulating Hormone 07/03/22 * Thyroid Stimulating Hormone 12/23/22 * Lipid Profile 07/03/22 * Lipid Profile 12/23/22 * Hepatitis C Antibody IgG 07/03/22 * Hepatitis C Antibody IgG 12/23/22 * Complete Metabolic Panel 07/03/22 * Complete Metabolic Panel 12/23/22 Radiology* CT Low Dose Lung Cancer Screening (LDCT) 08/20/22 [facility] [email or web address] + Plan note Future Appointments Appointment Date:07/06/2023 11:30:00 AM Scheduled Provider:TU HECTOR DO Location:[facility] Appointment Type:PC Wellness Medicare Future Scheduled Tests Laboratory* Thyroid Stimulating Hormone 07/03/22 * Thyroid Stimulating Hormone 12/23/22 * Lipid Profile 07/03/22 * Lipid Profile 12/23/22 * Hepatitis C Antibody IgG 07/03/22 * Hepatitis C Antibody IgG 12/23/22 * Complete Metabolic Panel 07/03/22 * Complete Metabolic Panel 12/23/22 Radiology* CT Low Dose Lung Cancer Screening (LDCT) 08/20/22 [facility] Evaluation + Plan note Future Appointments Appointment Date:02/02/2024 01:00:00 PM Scheduled Provider:TU HECTOR DO Location:[facility] Appointment Type:[facility] Future Scheduled Tests Laboratory* Thyroid Stimulating Hormone 09/29/23 * Lipid Profile 09/29/23 * Hepatitis C Antibody IgG 09/29/23 * Vitamin D Level 09/29/23 * Complete Metabolic Panel 09/29/23 Radiology* CT Low Dose Lung Cancer Screening (LDCT) 09/29/23 * MA Mammo Screening Bilateral w/ Avinash 09/29/23 [facility] Evaluation + Plan note Future Appointments Appointment Date:02/02/2024 01:00:00 PM Scheduled Provider:TU HECTOR DO Location:[facility] Appointment Type:PC OV Future Scheduled Tests Laboratory* Thyroid Stimulating Hormone 09/29/23 * Lipid Profile 09/29/23 * Hepatitis C Antibody IgG 09/29/23 * Vitamin D Level 09/29/23 * Complete Metabolic Panel 09/29/23 Radiology* CT Low Dose Lung Cancer Screening (LDCT) 11/22/23 [facility] Evaluation + Plan note Future Appointments Appointment Date:05/03/2024 01:30:00 PM Scheduled Provider:TU HECTOR DO Location:[facility] Appointment Type:PC OV Future Scheduled Tests Laboratory* Thyroid Stimulating Hormone 02/02/24 * Lipid Profile 02/02/24 * Hepatitis C Antibody IgG 02/02/24 * Vitamin D Level 02/02/24 * Complete Metabolic Panel 02/02/24 Radiology* CT Low Dose Lung Cancer Screening (LDCT) 11/22/23 [facility] SWEEPiOaluation + Plan note Future Appointments Appointment Date:02/22/2024 02:00:00 PM Scheduled Provider: Location:[facility] Appointment Type:VL - Venous US/Doppler One Leg (for DVT) Appointment Date:02/24/2024 02:00:00 PM Scheduled Provider:TU HECTOR DO Location:[facility] Appointment Type:PC OV ED Follow Up Appointment Date:05/03/2024 01:30:00 PM Scheduled Provider:TU HECTOR DO Location:[facility] Appointment Type:PC OV Future Scheduled Tests Laboratory* Thyroid Stimulating Hormone 02/02/24 * Lipid Profile 02/02/24 * Hepatitis C Antibody IgG 02/02/24 * Vitamin D Level 02/02/24 * Complete Metabolic Panel 02/02/24 Radiology* CT Low Dose Lung Cancer Screening (LDCT) 11/22/23 [facility] evaluation + Plan note Future Appointments Appointment Date:09/14/2024 11:30:00 AM Scheduled Provider:TU HECTOR DO Location:[facility] Appointment Type: OV Appointment Date:09/26/2024 01:30:00 PM Scheduled Provider:TU HECTOR DO Location:[facility] Appointment Type:PC Wellness Medicare Future Scheduled Tests Laboratory* Thyroid Stimulating Hormone 02/02/24 * Lipid Profile 02/02/24 * Hepatitis C Antibody IgG 02/02/24 * Vitamin D Level 02/02/24 * Complete Metabolic Panel 02/02/24 Radiology* CT Low Dose Lung Cancer Screening (LDCT) 11/22/23 * US Thyroid 09/13/24 [facility] Evaluation + Plan note Future Appointments Appointment Date:09/26/2024 01:30:00 PM Scheduled Provider:TU HECTOR DO Location:[facility] Appointment Type:PC Wellness Medicare Future Scheduled Tests Laboratory* Basic Metabolic Panel 09/14/24 * Thyroid Stimulating Hormone 02/02/24 * Lipid Profile 09/14/24 * Lipid Profile 02/02/24 * Hepatitis C Antibody IgG 02/02/24 * Vitamin D Level 09/14/24 * Vitamin D Level 02/02/24 * Complete Metabolic Panel 02/02/24 Radiology* CT Low Dose Lung Cancer Screening (LDCT) 11/22/23 * US Thyroid 09/13/24 [facility] Evaluation + Plan note Future Appointments Appointment Date:09/25/2024 03:00:00 PM Scheduled Provider: Location:[facility] Appointment Type:Echo - Echocardiogram Adult Appointment Date:09/26/2024 01:30:00 PM Scheduled Provider:TU HECTOR DO Location:[facility] Appointment Type:PC Wellness Medicare Future Scheduled Tests Laboratory* Basic Metabolic Panel 09/14/24 * Thyroid Stimulating Hormone 02/02/24 * Lipid Profile 09/14/24 * Lipid Profile 02/02/24 * Hepatitis C Antibody IgG 02/02/24 * Vitamin D Level 09/14/24 * Vitamin D Level 02/02/24 * Complete Metabolic Panel 02/02/24 Radiology* CT Low Dose Lung Cancer Screening (LDCT) 11/22/23 [facility] Evaluation + Plan note Future Appointments Appointment Date:04/09/2025 10:30:00 AM Scheduled Provider:JOSELIN MAURER Location:[facility] Appointment Type:PC OV Appointment Date:07/17/2025 11:00:00 AM Scheduled Provider:JOSELIN MAURER Location:[facility] Appointment Type:PC OV Future Scheduled Tests Laboratory* Basic Metabolic Panel 09/14/24 * Lipid Profile 09/14/24 * Vitamin D Level 09/14/24 [facility] Evaluation note* Diagnosis Cat bite, initial encounter- Primary documented in this encounter [facility] note* Diagnosis Elbow mass, left- Primary documented in this encounter [facility] noteNo assessment information availableWHighland [facility] Work Phone: Evaluhdygn note* Diagnosis Cough Wheeze Wheezing documented in this encounter [facility] note* Diagnosis Cough documented in this encounter [facility] note* Diagnosis Infiltrate of lower lobe of left lung present on imaging study- Primary Acute cough documented in this encounter [facility] note* Diagnosis Acute cough documented in this encounter [facility] note* Diagnosis COPD with exacerbation (HCC)- Primary Obstructive chronic bronchitis with exacerbation URI, acute Acute upper respiratory infections of unspecified site documented in this encounter [facility] note* Diagnosis Pericardial effusion Unspecified disease of pericardium documented in this encounter [facility] note* Diagnosis Hilar mass- Primary Right atrial mass documented in this encounter [facility] note* Diagnosis Lung mass- Primary Swelling, mass, or lump in chest Pulmonary emphysema, unspecified emphysema type (HCC) Adenopathy Enlargement of lymph nodes Pericardial effusion Unspecified disease of pericardium Chronic obstructive pulmonary disease, unspecified COPD type (HCC) History of tobacco use Personal history of tobacco use, presenting hazards to health documented in this encounter [facility] note* Diagnosis Hilar mass Adenopathy Enlargement of lymph nodes Lung mass Swelling, mass, or lump in chest Hilar mass Adenopathy Enlargement of lymph nodes Lung mass Swelling, mass, or lump in chest Hilar mass Adenopathy Enlargement of lymph nodes Lung mass Swelling, mass, or lump in chest [facility] Diagnosis Hilar mass Adenopathy Enlargement of lymph nodes Lung mass Swelling, mass, or lump in chest Pleural effusion- Primary Unspecified pleural effusion Pleural effusion Unspecified pleural effusion Lung mass Swelling, mass, or lump in chest Hilar mass Adenopathy Enlargement of lymph nodes Lung mass Swelling, mass, or lump in chest [facility]* Diagnosis Hilar mass Adenopathy Enlargement of lymph nodes Lung mass Swelling, mass, or lump in chest [facility]* Diagnosis Small cell carcinoma of left lung, unspecified part of lung (HCC)- Primary Chronic obstructive pulmonary disease, unspecified COPD type (HCC) 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 [facility]* Diagnosis Pleural mass [facility]* Diagnosis Small cell carcinoma of left lung, unspecified part of lung (HCC)- Primary [facility] Diagnosis Pleural mass [facility]* Diagnosis Malignant small cell cancer (CMS/HCC) (HCC)- Primary [facility]* Diagnosis Malignant small cell cancer (CMS/HCC) (HCC)- Primary Adenopathy Enlargement of lymph nodes Right atrial mass Pleural effusion Unspecified pleural effusion [facility]* Diagnosis Malignant small cell cancer (CMS/HCC) (HCC)- Primary [facility] Author Ami Magdaleno [facility] Note Date/Time February 11, 2025 6:34 pm [facility] Medical Records Department [address] [place] [id number] H&P Exam - Hospitalist 02/11/25 1800 MR#: [id number] Acct: [id number] Name: KARINA FERNANDO Rep #:[id number] : 1950 74 From: Ami Magdaleno MD PCP: TORIBIO CASTILLO Status:ADM IN Location: [id number] HPI - General General Date of Admission: 02/11/25 Date of Service: 02/11/25 Chief Complaint: Abdominal pain, nausea, vomiting HPI Narrative KARINA FERNANDO, is a 74-year-old female with 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 Does take oxycodone throughout the day and presentedhere Wednesday, 4 days ago, she had to disimpact herself. She started having bowel movements again and improvement a day and a half later she started experiencing abdominal bloating and vomited 3-4 times without hematemesis in thepast 24 hours. Abdominal pain is diffuse and she has abdominal distention. In the ED afebrile, heart rate 124 with a blood pressure 119/84, respiratory rate 22 and patient 97% on room air. CBC with white count of 5.6. CMP with a potassium of 3.1, BUN of 15 and creatinine 0.97. Lipase 10. UA not suggestive of infectious source. Abdominal/pelvis CT suggestive of persistent small bowel obstruction but other findings unchanged. Surgery service contacted who recommended an NG tube, enema, admit to medicine and they will follow in consultation. Hospitalist contacted for admission. Patient evaluated bedside. She just had enema, reports she feels a little bit better than when she came in,still has abdominal pain and nausea but both are slightly improved. Denies any fevers, no changes in bladder, denies any changes in her breathing or new cough. He is on immunotherapy with last treatment 3 weeks ago. [facility] Medical History Delayed surgical wound [...] mg tablet 10 mg PO DAILY 08/24/19 04/3 History multivitamin 1 tab PO QAM 09/18/24 History albuterol sulfate 2.5 mg/3 mL 2.5 mg inhalation PRN ID N 09/22/24 11/16/24 History (0.083 %) solution [...] .x4 10/1811/16/24 History mcg-4.5 mcg/actuation aerosol inhaler buspirone 10 mg tablet 10 mg PO TID PRN anxiety 11/16/24 History pantoprazole 40 mg tablet,delayed 40 mg PO QDAY 11/16/24 History release docusate sodium 100 mg capsule 200 mg PO QDAY 11/17/24 Unknown History (Dulcolax Stool Softener (docusate)) ferrous sulfate 325 mg (65 mg 325 mg PO QDAY 11/17/24 Unknown History iron) tablet,delayed release trazodone 100 mg tablet 150 mg PO QHS 11/17/24 Unkno wn History valacyclovir 500 mg tablet 500 mg PO QDAY PRN shingles 11/17/24 Unknown History oxycodone 10 mg tablet 10 mg PO BID PRN pain Unknown History cyanocobalamin (vitamin B-12) 50 50 mcg PO DAILY 02/11 Unknown History mcg tablet durvalumab 50 mg/mL intravenous IV Q14D 02/11/25 Unkno wn History solution famotidine 10 mg tablet 10 mg PO BID 02/11/25 Unknow n History furosemide 20 mg tablet 20 mg PO DAILY PRN swelling 02/11/25 Unknown History potassium chloride 20 mEq 20 meq PO DAILY 02/11/25 Unk nown History tablet,extended release(part/cryst) zinc citrate, zinc oxide 50 mg 50 mg PO DAILY 02/11/25 Unknown History tablet Allergy/AdvReac Type Severity Reaction Status Date / Time calcipotriene Allergy Severe Rash Verified 02/11/25 14:51 Opioids - Morphine Analogues Allergy Severe Hives Verified 02/11/25 14:51 alendronate sodium (From Allergy Pain in Verified 02/11/25 14:51 Fosamax) joints cefaclor (From Ceclor) Allergy Hives Verified 02/11/25 14:51 ezetimibe Allergy Other Verified 02/11/25 14:51 Penicillins Allergy Hives Verified 02/11/25 14:51 tramadol HCl (From [facility]) Allergy Hives Verified 02/11/25 14:51 hydrochlorothiazide AdvReac Unknown reaction Verified 02/11/25 14:51 erythromycin base AdvReac Nausea Verified 02/11/25 14:51 Family History Mother Leukemia Osteoporosis Thyroid disorder [...] 30 alcohol intake: never ROS ROS Narrative General: Denies fever/chills HENT: Denies headache, denies stuffy nose, denies sore throat EYES: Denies changes in vision Resp: No changes in vision or new cough Cardiac: Denies chest pain GI: Has had problems with constipation, diffuse abdominal pain, nausea with vomiting, slightly improved : Denies changes in urination Extremity: Did have swelling in lower extremities with cellulitis and took Doxy for 7 days but this is resolved MSK: Denies focal weakness Neuro: Denies any numbness/tingling Heme: Denies any bleeding or bruising Skin: Denies rashes Psychiatric: No complaints voiced Vital Signs Vital Signs Vital Signs: 02/11/25 14:48 02/11/25 14:51 02/11/25 17:00 Temperature 98.7 F 98.7 F 98.7 F Temperature Source Oral Oral Oral Pulse Rate 124 H 124 H 107 H Respiratory Rate 22 H 22 H 13 Blood Pressure 119/84 H 119/84 H 128/85 H Blood Pressure Mean 95 95 99 Pulse Ox 97 97 92 Oxygen Delivery Method Nasal Cannula Room Air Nasal Cannula Oxygen Flow Rate (L/min) 3 3 Weight Weight: 63.8 kg Body Mass Index (BMI) 24.9 Physical Exam Narrative General: Alert, oriented, no apparent distress HEENT: Atraumatic, normocephalic Eyes: Anicteric, normal conjunctiva, extraocular movements grossly intact Neck: Supple Respiratory: No overt wheezes or rhonchi, normal respiratory effort Cardiovascular: Low-grade sinus tachycardia GI: A little bit diffusely tender but no rebound, guarding, rigidity, little distended Extremities: Trace bilateral lower extremity edema Musculoskeletal: Moving all extremities Neuro: No overt focal neurological deficits Skin: No rashes appreciated Psych: Cooperative Results Lab / Micro Data 02/11/25 16:20 02/11/25 16:20 Labs: Laboratory Results - last 24 hr 02/11/25 16:20: WBC 5.6, RBC 3.89 L, Hgb 12.0, Hct 37.0, MCV 95.1, MCH 30.8, MCHC 32.4, RDW Std Deviation 58.0 H, RDW Coeff of Juan David 16.8 H, Plt Count 191, MPV8.7, Immature Gran % (Auto) 0.400, Neut % (Auto) 71.5 H, Lymph % (Auto) 16.0 L, Green % (Auto) 11.7 H, Eos % (Auto) 0.0, Baso % (Auto) 0.4, Absolute Neuts (auto)4.0, Absolute Lymphs (auto) 0.90, Nucleated RBC % 0, Sodium 138, Potassium 3.1 L, Chloride 100, Carbon Dioxide 26.7, Anion Gap 11, BUN 15, Creatinine 0.97, Estim Creat Clear Calc 46.45 L, Est GFR (MDRD) Non-Af 62, BUN/Creatinine Ratio 15.3, Glucose 105 H, Calcium 8.3, Magnesium 2.2, Total Bilirubin 0.31, AST 23, ALT 21, Alkaline Phosphatase 87, Total Protein 5.2 L, Albumin 3.1 L, Globulin 2.1 L, Albumin/Globulin Ratio 1.5, Lipase 10 L 02/11/25 16:40: Urine Color Yellow, Urine Clarity Clear, Urine pH 7.0, Ur Specific [place] 1.010, Urine Protein 30 H, Urine Glucose (UA) Normal, Urine Ketones 5 H, Urine Occult Blood Negative, Urine Nitrite Negative, Urine Bilirubin Negative, Urine Urobilinogen Normal, Ur Leukocyte Esterase 25 H, UrineRBC 0 SEEN, Urine WBC 0-5 SEEN, Ur Squamous Epith Cells 0 SEEN, Urine Bacteria 2+, Urine Mucus 1+ Imaging Radiology Impression Abdomen/Pelvis CT 02/11/25 15:13 IMPRESSION: Findings concerning for a persistent small-bowel obstruction. Additional findings are unchanged when compared to the prior study. Reading Location: [facility] Assessment & Plan Assessment/Plan (1) Partial small bowel obstruction: PLAN: Plan # Small bowel obstruction - Abdominal/pelvis CT suggestive of persistent small bowel obstruction - ED physician discussed with on-call surgeon, NG tube and enema recommended andthey will see in consultation -Surgery consult -NG tube placed in ED -Enema ordered -N.p.o. 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 Chance, last seen in office 01/23/2025 #Hx COPD -Continue home inhalers -Incentive spirometer #Depression/anxiety - Patient n.p.o. with NG tube, resume home medications once patient able to tolerate p.o. #GERD -Continue PPI but will convert to IV given n.p.o. status and NG tube #DVT ppx: SCDs Ami Magdaleno MD Charges/Coding Visit Charges Inpatient E&M: 95946 Init Hosp L2 02/11/25 7234 <Electronically signed by Ami Magdaleno MD> Cosigner Signature (if applicable): CC: Dr. Ami Magdaleno MD; TORIBIO CASTILLO~ Signed [facility] Work Phone: Hospital course Narrative No data available for this section [facility] Hospital Discharge instructions No data available for this section [facility] Discharge instructions Additional Instructions Please make sure he elevate, take off your rings. Take the clindamycin stop taking the other antibiotic. Will take the clindamycin 3 times a day for 1 week. Return for any worsening symptoms.[facility] Work Phone: Hospital Discharge instructions* Attachments The following attachments cannot be sent through Care Everywhere. * General Anesthesia Discharge Instructions (Macedonian) * Endobronchial Ultrasound (Macedonian) [facility] Additional Instructions Avoid taking your [...] oxygen as previously directed. Follow-up with your oncologist.[facility] Work Phone: Hospital Discharge instructionsAdditional Instructions Close follow-up with your PCP return for any worsening symptoms or other concerns.[facility] Work Phone: Hospital Discharge instructionsAdditional Instructions Recommend below diet for 2 weeks: What are low-fiber foods? If your doctor tells you to follow a low-fiber diet, here are low-fiber foods you can eat and higher-fiber foods you should avoid. Remember to always choose foods that you would normally eat. Do not try any foods that caused you discomfort or allergic reactions in the past. If you are on a low-residue diet, your food choices are even more restricted than those listed below. Talk with your cancer care team or dietitian if you have questions about certain foods or amounts. Meat, fish, poultry, and protein Eat: Tender cuts of meat Ground meat Tofu Fish and shellfish Smooth peanut butter Eggs Bake, broil, or poach meats, and use mild seasonings. Try preparing meats as stews, roasts, meatloaves, casseroles, sandwiches, and soups using ingredients on the approved lists. Scramble, poach, or boil eggs; or make omelets, souffl s, custard, puddings, and casseroles, using ingredients noted below. You might want to ask your doctor, nurse, or dietitian about other foods may be OK for you to eat, and find out when you can go back to your normal diet. Avoid: All beans, nuts, peas, lentils, and legumes Processed meats, hot dogs, sausage, and cold cuts Tough meats with gristle Dairy: Milk and cheese Eat: Only in small to medium amounts and only if they don t cause problems for you Milk, chocolate milk, buttermilk, and milk drinks Yogurt without seeds or granola Sour cream Cheese Cottage cheese Custard or pudding Ice cream or frozen desserts (without nuts) Cream sauces, soups, and casseroles You can use these items in desserts, snacks, or breads. Bread, cereals, and grains Eat: White breads, waffles, [place] toast, plain white rolls, or white bread toast Pretzels Plain pasta or noodles White rice Crackers, zwieback, thien, and matzoh (no cracked wheat or whole grains) Cereals without whole grains, added fiber, seeds, raisins, or other dried fruit Use white flour for baking and making sauces. Grains, such as white rice, Cream of Wheat, or grits, should be well-cooked. Include the above grains in casseroles, dumplings, souffl s, cheese strata, kugels, and pudding. Avoid any food that contains: Brown or wild rice Whole grains, cracked grains, or whole wheat products Kasha (buckwheat) Cornbread or cornmeal [place] crackers Bran Wheat germ Nuts Granola Coconut Dried fruit Seeds Vegetables and potatoes Eat: Tender, well-cooked fresh or canned vegetables without seeds, stems, or skins Cooked sweet or white potatoes without skins Strained vegetable juices without pulp or spices You can also eat these with cream sauces, or in soups, souffl s, kugels, and casseroles. Avoid: All raw or steamed vegetables All types of beans Potatoes with skin Peas [place] Cabbage, broccoli, cauliflower, [place] sprouts, and greens Sauerkraut Onions Fruits and desserts Eat: Soft canned or cooked fruit without seeds or skins (small amounts) Small amounts of well-ripened banana Strained or clear juices Small amounts of soft cantaloupe or honeydew melon Cookies and other desserts without whole grains, dried fruit, berries, nuts, or coconut Sherbet and popsicles Serving suggestions include gelatins, milk shakes, frozen desserts, puddings, tapioca, cakes, and sauces. Avoid: All raw or dried fruits Berries Prune juice, prunes, and raisins Other foods Eat: Mayonnaise and mild salad dressings Margarine, butter, cream, and oils in small amounts Plain gravies Plain bouillon and broth Ketchup and mild mustard Spices, cooked herbs, and salt Sugar, honey, and syrup Clear jellies Hard candy and marshmallows Plain chocolate Avoid: Marmalade Pickles, olives, relish, and horseradish Popcorn Potato chips Liquids Keep in mind that low-fiber foods cause fewer bowel movements and smaller stools. You may need to drink extra fluids to help prevent constipation while you are on a low-fiber diet. Drink plenty of water unless your doctor tells you otherwise, and use juices and milk as noted above. [facility]: [facility] No data available for this section [facility] Reason for referral (narrative)No reason for referral information available[facility] Work Phone: Reason for visit Narrative* Auth/Cert (Routine) Specialty Diagnoses / Procedures Referred By Jeffery t Referred To Contact Diagnoses Pleural effusion Hypoxia, lung cancer Procedures . Sushila Tam MD [address] [place] [address] Phone: tel: fax: [facility] [address] [place] [address] Phone: tel: Referral ID Status Reason Start Date Expiration Date Visits Re quested Visits Authorized [id number] 1 1 [facility] Narrative* Auth/Cert (Routine) Specialty Diagnoses / Procedures Referred By Contac t Referred To Contact Diagnoses Hilar mass Adenopathy Lung mass Procedures ID [facility] EBUS GUIDED SAMPL 3/> NODE STATION/STRUX ENDOBRONCHIAL ULTRASOUND WITH TRANSBRONCHIAL NEEDLE ASPIRATION. POSSIBLE ENDOBRONCHIAL BIOPSIES, NEEDLE ASPIRATION, AND BRUSHINGS. Daija Mejia MD [address] [place] [address] Phone: tel: fax: [facility] Endoscopy [address] [place] [address] Phone: tel: Referral ID Status Reason Start Date Expiration Date Visits Re quested Visits Authorized [id number] 1 1 [employer] for visit Narrative* Imaging (Routine) - Closed Specialty Diagnoses / Procedures Referred By Contac t Referred To Contact Radiology Diagnoses Pleural mass Procedures MR brain w and wo contrast Lizandro Fortune MD [address] [place] [address], [address] [place] [address] Phone: tel: fax: Referral ID Status Reason Start Date Expiration Date Visits Re quested Visits Authorized [id number] Closed 10/03/2024 10/03/2025 1 1 [employer] for visit Narrative* Imaging (Routine) - Closed Specialty Diagnoses / Procedures Referred By Contac t Referred To Contact Radiology Diagnoses Pleural mass Procedures PET/CT skull base to mid thigh Lizandro Fortune MD [address] [place] [address], [address] [place] [address] Phone: tel: fax: Referral ID Status Reason Start Date Expiration Date Visits Re quested Visits Authorized [id number] Closed 10/03/2024 10/03/2025 1 1 [facility] Chief Complaint and Reason for Visit [...] Visit Admit Date Mediastinal lymphadenopathy September 18, 12:35pm Lung mass September 18, 2024 12:3 [...] 18, 2024 12:3 5pm Mediastinal lymphadenopathy September 22, 025 8:56am Shortness of breath September 22, [...] 18, 2024 12:3 5pm Mediastinal lymphadenopathy September 22, 025 8:56am Shortness of breath September 22, [...] lung cancer January 23, 2025 9: 03am Chief Complaint Admit Date sob October 21, 2024 3:05 pm REVIEW [...] m CP January 28, 2025 5:44 pm SMALL BOWEL OBSTRUCTION February 11, 2025 6:01pm Reason for Visit Admit Date Small cell [...] lung cancer January 23, 2025 9: 03am Abdominal pain February 11, 2025 6:01 pm Hypokalemia February 11, 2025 6:01 pm Partial small bowel obstruction January 6:01pm 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, 2025 6 :01pm Chief Complaint Admit Date sob October 21, 2024 3:05 pm REVIEW [...] m CP January 28, 2025 5:44 pm SMALL BOWEL OBSTRUCTION February 11, 2025 6:01pm SMALL BOWEL OBSTRUCTION February 11, 2025 9:04pm SMALL BOWEL OBSTRUCTION February 12, 2025 8:53am SMALL BOWEL OBSTRUCTION February 12, 2025 12:59pm SMALL BOWEL OBSTRUCTION February 13, 2025 6:48am SMALL BOWEL OBSTRUCTION February 13, 2025 10:32am SMALL BOWEL OBSTRUCTION February 14, 2025 7:15am SMALL BOWEL OBSTRUCTION February 14, 2025 11:54am Reason for Visit Admit Date Small cell [...] lung cancer January 23, 2025 9: 03am Abdominal pain February 11, 2025 6:01 pm Constipation February 11, 2025 6:01 pm Delayed surgical wound healing January 6:01pm Hypokalemia February 11, 2025 6:01 pm Lung cancer February 11, 2025 6:01 pm Partial small bowel obstruction January 6:01pm 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, 2025 6 :01pm Chief Complaint Admit Date REVIEW BX October 25, 2024 2:36 pm [...] - REVIEW SCANS January 23, 2025 9:03am CP January 28, 2025 5:44 pm SMALL BOWEL OBSTRUCTION February 11, 2025 6:01pm SMALL BOWEL OBSTRUCTION February 11, 2025 9:04pm SMALL BOWEL OBSTRUCTION February 12, 2025 8:53am SMALL BOWEL OBSTRUCTION February 12, 2025 12:59pm SMALL BOWEL OBSTRUCTION February 13, 2025 6:48am SMALL BOWEL OBSTRUCTION February 13, 2025 10:32am SMALL BOWEL OBSTRUCTION February 14, 2025 7:15am SMALL BOWEL OBSTRUCTION February 14, 2025 11:54am PERICARDIAL EFFUSION February 19, 2025 9: 01am 3 WKS - LABS - DURVA February 20, 2025 7: 55am maint Imfinzi February 20, 2025 8:0 0am Reason for Visit Admit Date Small cell [...] lung cancer January 23, 2025 9: 03am Abdominal pain February 11, 2025 6:01 pm Constipation February 11, 2025 6:01 pm Delayed surgical wound healing January 6:01pm Hypokalemia February 11, 2025 6:01 pm Lung cancer February 11, 2025 6:01 pm Partial small bowel obstruction January 6:01pm 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, 2025 6 :01pm Metastasis to adrenal gland February 20, 2025 7:55am Metastasis to liver February 20, 2025 7:5 5am 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 20, 2025 7:55am Chief Complaint Admit Date 1WK LABS NEW START October 31, 2024 [...] - REVIEW SCANS January 23, 2025 9:03am CP January 28, 2025 5:44 pm SMALL BOWEL OBSTRUCTION February 11, 2025 6:01pm SMALL BOWEL OBSTRUCTION February 11, 2025 9:04pm SMALL BOWEL OBSTRUCTION February 12, 2025 8:53am SMALL BOWEL OBSTRUCTION February 12, 2025 12:59pm SMALL BOWEL OBSTRUCTION February 13, 2025 6:48am SMALL BOWEL OBSTRUCTION February 13, 2025 10:32am SMALL BOWEL OBSTRUCTION February 14, 2025 7:15am SMALL BOWEL OBSTRUCTION February 14, 2025 11:54am PERICARDIAL EFFUSION February 19, 2025 9: 01am 3 WKS - LABS - DURVA February 20, 2025 7: 55am maint Imfinzi February 20, 2025 8:0 0am Reason for Visit Admit Date Encounter for antineoplastic immunothera py October 31, [...] 11: 23am Mediastinal lymphadenopathy November 21 8:07am Encounter for antineoplastic immunothera py December 12, 2024 8:07am Encounter for chemotherapy management Ma y 2024 8:07am Mediastinal lymphadenopathy December 12 8:07am Metastasis to adrenal gland December 12 8:07am Metastasis to liver December 12, 2024 8:07a m Constipation December 12, 2024 8:07a m Delayed surgical wound healing December 12, 2024 8:07am Small cell lung cancer December 12, 2024 8: 07am Mediastinal lymphadenopathy January 02, 2 025 9:04am Metastasis to adrenal gland January 23 9:03am Metastasis to liver January 23, 2025 9:03a m Small cell lung cancer January 23, 2025 9: 03am Lung cancer February 11, 2025 6:01 pm Abdominal pain February 11, 2025 6:01 pm Constipation February 11, 2025 6:01 pm Delayed surgical wound healing January 6:01pm Hypokalemia February 11, 2025 6:01 pm Partial small bowel obstruction January 6:01pm 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, 2025 6 :01pm Metastasis to adrenal gland February 20, 2025 7:55am Metastasis to liver February 20, 2025 7:5 5am Constipation February 20, 2025 7:5 5am Hypokalemia February 20, 2025 7:5 5am Nausea February 20, 2025 7:5 5am 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 20, 2025 7:55am Chief Complaint Admit Date 1 WK - LABS November 09, 2024 [...] - REVIEW SCANS January 23, 2025 9:03am CP January 28, 2025 5:44 pm SMALL BOWEL OBSTRUCTION February 11, 2025 6:01pm SMALL BOWEL OBSTRUCTION February 11, 2025 9:04pm SMALL BOWEL OBSTRUCTION February 12, 2025 8:53am SMALL BOWEL OBSTRUCTION February 12, 2025 12:59pm SMALL BOWEL OBSTRUCTION February 13, 2025 6:48am SMALL BOWEL OBSTRUCTION February 13, 2025 10:32am SMALL BOWEL OBSTRUCTION February 14, 2025 7:15am SMALL BOWEL OBSTRUCTION February 14, 2025 11:54am PERICARDIAL EFFUSION February 19, 2025 9: 01am 3 WKS - LABS - DURVA February 20, 2025 7: 55am maint Imfinzi February 20, 2025 8:0 0am CA February 26, 2025 10 :44am Reason for Visit Admit Date Hypokalemia November 09, 2024 8:3 2am Metastasis to adrenal gland November 09, 2024 8:32am Metastasis to liver November 09, 2024 8:3 2am Small cell carcinoma of left lung November 09, 2024 8:32am Pericardial effusion November 17, 2024 11:23 am Right atrial mass November 17, 2024 11:23a m Small cell lung cancer November 17, 2024 11: 23am Mediastinal lymphadenopathy November 21 8:07am Encounter for antineoplastic immunothera py December 12, 2024 8:07am Encounter for chemotherapy management Ma y 2024 8:07am Mediastinal lymphadenopathy December 12 8:07am Metastasis to adrenal gland December 12 8:07am Metastasis to liver December 12, 2024 8:07a m Constipation December 12, 2024 8:07a m Delayed surgical wound healing December 12, 2024 8:07am Small cell lung cancer December 12, 2024 8: 07am Mediastinal lymphadenopathy January 02, 2 025 9:04am Metastasis to adrenal gland January 23 9:03am Metastasis to liver January 23, 2025 9:03a m Small cell lung cancer January 23, 2025 9: 03am Lung cancer February 11, 2025 6:01 pm Abdominal pain February 11, 2025 6:01 pm Constipation February 11, 2025 6:01 pm Delayed surgical wound healing January 6:01pm Hypokalemia February 11, 2025 6:01 pm Partial small bowel obstruction January 6:01pm 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, 2025 6 :01pm Metastasis to adrenal gland February 20, 2025 7:55am Metastasis to liver February 20, 2025 7:5 5am Constipation February 20, 2025 7:5 5am Hypokalemia February 20, 2025 7:5 5am Nausea February 20, 2025 7:5 5am 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 20, 2025 7:55am Chief Complaint Admit Date 1 WK - LABS November 09, 2024 [...] - REVIEW SCANS January 23, 2025 9:03am CP January 28, 2025 5:44 pm SMALL BOWEL OBSTRUCTION February 11, 2025 6:01pm SMALL BOWEL OBSTRUCTION February 11, 2025 9:04pm SMALL BOWEL OBSTRUCTION February 12, 2025 8:53am SMALL BOWEL OBSTRUCTION February 12, 2025 12:59pm SMALL BOWEL OBSTRUCTION February 13, 2025 6:48am SMALL BOWEL OBSTRUCTION February 13, 2025 10:32am SMALL BOWEL OBSTRUCTION February 14, 2025 7:15am SMALL BOWEL OBSTRUCTION February 14, 2025 11:54am PERICARDIAL EFFUSION February 19, 2025 9: 01am 3 WKS - LABS - DURVA February 20, 2025 7: 55am CA February 26, 2025 10 :44am F/U FOR NAUSEA - LABS March 06, 2025 10:17am maint Imfinzi March 06, 2025 10 :30am Reason for Visit Admit Date Hypokalemia November 09, 2024 8:3 2am Metastasis to adrenal gland November 09, 2024 8:32am Metastasis to liver November 09, 2024 8:3 2am Small cell carcinoma of left lung November 09, 2024 8:32am Pericardial effusion November 17, 2024 11:23 am Right atrial mass November 17, 2024 11:23a m Small cell lung cancer November 17, 2024 11: 23am Mediastinal lymphadenopathy November 21 8:07am Encounter for antineoplastic immunothera py December 12, 2024 8:07am Encounter for chemotherapy management Ma y 2024 8:07am Mediastinal lymphadenopathy December 12 8:07am Metastasis to adrenal gland December 12 8:07am Metastasis to liver December 12, 2024 8:07a m Small cell lung cancer December 12, 2024 8: 07am Constipation December 12, 2024 8:07a m Delayed surgical wound healing December 12, 2024 8:07am Mediastinal lymphadenopathy January 02, 2 025 9:04am Metastasis to adrenal gland January 23 9:03am Metastasis to liver January 23, 2025 9:03a m Small cell lung cancer January 23, 2025 9: 03am Lung cancer February 11, 2025 6:01 pm 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, 2025 6 :01pm Abdominal pain February 11, 2025 6:01 pm Constipation February 11, 2025 6:01 pm Delayed surgical wound healing January 6:01pm Hypokalemia February 11, 2025 6:01 pm Partial small bowel obstruction January 6:01pm Metastasis to adrenal gland February 20, 2025 7:55am Metastasis to liver February 20, 2025 7:5 5am 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 20, 2025 7:55am Constipation February 20, 2025 7:5 5am Hypokalemia February 20, 2025 7:5 5am Nausea February 20, 2025 7:5 5am Metastasis to adrenal gland March 06, 2025 10:17am Metastasis to liver March 06, 2025 10 :17am Small cell lung cancer March 06, 2025 10:17am Advance Directives No Advanced Directives Records Found Advance Directive Response Recorded Date/ Time Living Will No July 13 023 5:39pm Power of Drill Operator No July 13, 2023 5:39pm Advance Directive Response Recorded Date/ Time Living Will No July 13 023 6:39pm Power of Drill Operator No July 13, 2023 6:39pm Date Activated Date Inactivated Comments 10/05/2024 8:10 PM Date Activated Date Inactivated Comments 10/05/2024 10:16 PM 10/06/2024 7:49 PM Date Activated Date Inactivated Comments 10/05/2024 8:10 PM 10/05/2024 10:16 PM Advance Directive Response Recorded Date/ Time Living Will No June 20 9:59am Do you have a Healthcare Power of Drill Operator? No June 20, 2024 9:59am Living Will Yes September 13 025 7:47pm Do you have a Healthcare Power of Drill Operator? Yes September 13, 2024 7:47pm Name of Medical Power of Drill Operator Yuri September 13, 2024 7:47pm Advance Directive Response Recorded Date/ Time Living Will Yes October 05, 2024 2:07pm Do you have a Healthcare Power of Drill Operator? Yes October 05, 2024 2:07pm Name of Medical Power of Drill Operator Glenny Cordova October 05, 2024 2:07pm Living Will No June 20 9:59am Do you have a Healthcare Power of Drill Operator? No June 20, 2024 9:59am Living Will Yes September 13 7:47pm Do you have a Healthcare Power of Drill Operator? Yes September 13, 2024 7:47pm Name of Medical Power of Drill Operator Yuri September 13, 2024 7:47pm Date Activated Date Inactivated Comments 10/05/2024 10:16 PM 10/06/2024 7:49 PM Date Activated Date Inactivated Comments 10/05/2024 8:10 PM 10/05/2024 10:16 PM Advance Directive Response Recorded Date/ Time Living Will Yes October 05, 2024 2:07pm Do you have a Healthcare Power of Drill Operator? Yes October 05, 2024 2:07pm Name of Medical Power of Drill Operator Maríajenna Art October 05, 2024 2:07pm Living Will Yes October 21, 2024 3:05pm Do you have a Healthcare Power of Drill Operator? Yes October 21, 2024 3:05pm Name of Medical Power of Drill Operator Catherine Cordova October 21, 2024 3:05pm Living Will Yes September 13 025 7:47pm Do you have a Healthcare Power of Drill Operator? Yes September 13, 2024 7:47pm Name of Medical Power of Drill Operator Yuri September 13, 2024 7:47pm Advance Directive Response Recorded Date/ Time Advance Directives on File No November 232024 1:18pm Living Will Yes November 23, 2024 1: 18pm Do you have a Healthcare Pow er of Drill Operator? Yes November 23, 2024 1:18pm Name of Medical Power of Drill Operator Glenny Cordova - daughter and Ran Contrerasughn - son November 23, 2024 1:18pm Advance Directives Yes November 23, 2024 1:18pm Living Will Yes October 05, 2024 2:07pm Do you have a Healthcare Pow er of Drill Operator? Yes October 05, 2024 2:07pm Name of Medical Power of Drill Operator Glenny Cordova October 05, 2024 2:07pm Living Will Yes October 21, 2024 3:05pm Do you have a Healthcare Pow er of Drill Operator? Yes October 21, 2024 3:05pm Name of Medical Power of Drill Operator Catherine Cordova October 21, 2024 3:05pm Living Will Yes September 13, 025 7:47pm Do you have a Healthcare Pow er of Drill Operator? Yes September 13, 2024 7:47pm Name of Medical Power of Drill Operator Yuri September 13, 2024 7:47pm Living Will Yes November 03, 2024 2:04pm Do you have a Healthcare Pow er of Drill Operator? Yes November 03, 2024 2:04pm Name of Medical Power of Drill Operator GLENNY CORDOVA November 03, 2024 2:04pm Advance Directive Response Recorded Date/ Time Advance Directives on File No January 02, 2025 9:21am Living Will Yes January 02, 2025 9:21am Do you have a Healthcare Pow er of Drill Operator? Yes January 02, 2025 9:21am Name of Medical Power of Drill Operator Glenny Cordova - daughter and Ran Dozier - son January 02, 2025 9:21am Advance Directives Yes January 02 9:21am Living Will Yes October 05, 2024 2:07pm Do you have a Healthcare Pow er of Drill Operator? Yes October 05, 2024 2:07pm Name of Medical Power of Drill Operator Glenny Cordova October 05, 2024 2:07pm Living Will Yes October 21, 2024 3:05pm Do you have a Healthcare Pow er of Drill Operator? Yes October 21, 2024 3:05pm Name of Medical Power of Drill Operator Catherine Cordova October 21, 2024 3:05pm Living Will Yes September 13, 2 025 7:47pm Do you have a Healthcare Pow er of Drill Operator? Yes September 13, 2024 7:47pm Name of Medical Power of Drill Operator Yuri September 13, 2024 7:47pm Living Will Yes November 03, 2024 2:04pm Do you have a Healthcare Pow er of Drill Operator? Yes November 03, 2024 2:04pm Name of Medical Power of Drill Operator GLENNY CORDOVA November 03, 2024 2:04pm Advance Directive Response Recorded Date/ Time Advance Directives on File No January 04, 2025 12:59pm Living Will Yes January 04, 2025 12:59pm Do you have a Healthcare Pow er of Drill Operator? Yes January 04, 2025 12:59pm Name of Medical Power of Drill Operator Glenny Cordova - daughter and Ran Dozier - son January 04, 2025 12:59pm Advance Directives Yes January 04 12:59pm Living Will Yes October 05, 2024 2:07pm Do you have a Healthcare Pow er of Drill Operator? Yes October 05, 2024 2:07pm Name of Medical Power of Drill Operator Glenny Art October 05, 2024 2:07pm Living Will Yes October 21, 2024 3:05pm Do you have a Healthcare Pow er of Drill Operator? Yes October 21, 2024 3:05pm Name of Medical Power of Drill Operator Catherine Art October 21, 2024 3:05pm Living Will Yes November 03, 2024 2:04pm Do you have a Healthcare Pow er of Drill Operator? Yes November 03, 2024 2:04pm Name of Medical Power of Drill Operator GLENNY CORDOVA November 03, 2024 2:04pm Advance Directive Response Recorded Date/ Time Advance Directives on File No January 23, 2025 11:30am Living Will Yes January 23, 2025 1 1:30am Do you have a Healthcare Pow er of Drill Operator? Yes January 23, 2025 11:30am Name of Medical Power of Drill Operator Glenny Cordova - daughter and Ran Dozier - son January 23, 2025 11:30am Advance Directives Yes January 23 11:30am Living Will Yes October 05, 2024 2:07pm Do you have a Healthcare Pow er of Drill Operator? Yes October 05, 2024 2:07pm Name of Medical Power of Drill Operator Corasoraidajenna Cordova October 05, 2024 2:07pm Living Will Yes October 21, 2024 3:05pm Do you have a Healthcare Pow er of Drill Operator? Yes October 21, 2024 3:05pm Name of Medical Power of Drill Operator Catherinejenna Cordova October 21, 2024 3:05pm Living Will Yes November 03, 2024 2:04pm Do you have a Healthcare Pow er of Drill Operator? Yes November 03, 2024 2:04pm Name of Medical Power of Drill Operator GLENNY CORDOVA November 03, 2024 2:04pm Do you have a Healthcare Pow er of Drill Operator? Yes January 28, 2025 6:57pm Name of Medical Power of Drill Operator Glenny Cordova January 28, 2025 6:57pm Advance Directive Response Recorded Date/ Time Advance Directives on File No January 23, 2025 11:30am Living Will Yes January 23, 2025 1 1:30am Do you have a Healthcare Pow er of Drill Operator? Yes January 23, 2025 11:30am Name of Medical Power of Drill Operator Glenny Cordova - daughter and Ran Dozier - son January 23, 2025 11:30am Advance Directives Yes January 23 11:30am Living Will Yes October 21, 2024 3:05pm Do you have a Healthcare Pow er of Drill Operator? Yes October 21, 2024 3:05pm Name of Medical Power of Drill Operator Catherine Cordova October 21, 2024 3:05pm Do you have a Healthcare Pow er of Drill Operator? Yes February 11, 2025 5:07pm Living Will Yes November 03, 2024 2:04pm Do you have a Healthcare Pow er of Drill Operator? Yes November 03, 2024 2:04pm Name of Medical Power of Drill Operator CORASORAIDAJenna CORDOVA November 03, 2024 2:04pm Do you have a Healthcare Pow er of Drill Operator? Yes January 28, 2025 6:57pm Name of Medical Power of Drill Operator Glenny Cordova January 28, 2025 6:57pm Advance Directive Response Recorded Date/ Time Advance Directives on File No January 23, 2025 11:30am Living Will Yes January 23, 2025 1 1:30am Do you have a Healthcare Pow er of Drill Operator? Yes January 23, 2025 11:30am Name of Medical Power of Drill Operator Glenny Cordova - daughter and Ran Dozier - son January 23, 2025 11:30am Advance Directives Yes January 23 11:30am Living Will Yes October 21, 2024 3:05pm Do you have a Healthcare Pow er of Drill Operator? Yes October 21, 2024 3:05pm Name of Medical Power of Drill Operator Catherine Cordova October 21, 2024 3:05pm Do you have a Healthcare Pow er of Drill Operator? Yes February 11, 2025 8:18pm Living Will Yes November 03, 2024 2:04pm Do you have a Healthcare Pow er of Drill Operator? Yes November 03, 2024 2:04pm Name of Medical Power of Drill Operator GLENNY ART November 03, 2024 2:04pm Do you have a Healthcare Pow er of Drill Operator? Yes January 28, 2025 6:57pm Name of Medical Power of Drill Operator Glenny Art January 28, 2025 6:57pm Advance Directive Response Recorded Date/ Time Advance Directives on File No Augus t 2024 10:08am Living Will Yes February 20, 2025 10:08am Do you have a Healthcare Pow er of Drill Operator? Yes February 20, 2025 10:08am Name of Medical Power of Drill Operator Glenny Cordova - daughter and Ran Dozier - son February 20, 2025 10:08am Advance Directives Yes February 20, 10:08am Do you have a Healthcare Pow er of Drill Operator? Yes February 11, 2025 8:18pm Living Will Yes November 03, 2024 2:04pm Do you have a Healthcare Pow er of Drill Operator? Yes November 03, 2024 2:04pm Name of Medical Power of Drill Operator GLENNY ART November 03, 2024 2:04pm Do you have a Healthcare Pow er of Drill Operator? Yes January 28, 2025 6:57pm Name of Medical Power of Drill Operator Glenny Art January 28, 2025 6:57pm Summary Purpose Family [...] Care Team (unrecognized sect ion and content) Shift Mgr Relationship Specialty Start Date End Date Tu Hector DO [address] [place] [address] PCP - General [facility] Medicine 01/12/23 Shift Mgr Relationship Specialty Start Date End Date Tu Hector DO [address] [place] [id number] PCP - General [facility] Medicine 01/12/23 Shift Mgr Relationship Specialty Start Date End Date Tu Hector DO [address] [place] [id number] PCP - General [facility] Medicine 01/12/23 Team Status: Active Member Role [...] Tu Hector DO Primary Care Provider Active TRUCKING SUPERVISORJosh Lew Attending Provider, Referring Provid er Active Shift Mgr Relationship Specialty Start Date End Date Tu Hector DO [address] [place] [address] PCP - [facility] 01/12/23 Shift Mgr Relationship Specialty Start Date End Date Tu Hector DO [address] [place] [id number] (Work) PCP - General Family Medicine 01/12/23 Shift Mgr Relationship Specialty Start Date End Date Tu Hector DO [address] [place] [address] PCP - General Family Medicine 01/12/23 Shift Mgr Relationship Specialty Start Date End Date Tu Hector DO [address] [place] [id number] PCP - General Family Medicine 01/12/23 Shift Mgr Relationship Specialty Start Date End Date Tu Hector DO [address] [place] [id number] PCP - General Family Medicine 01/12/23 Shift Mgr Relationship Specialty Start Date End Date Tu eHctor DO [address] [place] [address] PCP - General Family Medicine 01/12/23 Team [...] 2024 End: September 22, 2024 Rhiannon Georges TRUCKING SUPERVISOR, TRUCKING SUPERVISOR-C Attending Provider Active Start: September 22, 2024 End: September 22, 2024 Team Status: Inactive Member Role Status Dates Dr. Tu Hector DO Primary Care Provider Active Start: September 22, 2024 End: September 22, 2024 Rhiannon Georges TRUCKING SUPERVISOR, TRUCKING SUPERVISOR-C Attending Provider Active Start: September 22, 2024 End: September 22, 2024 Rhiannon Georges TRUCKING SUPERVISOR, TRUCKING SUPERVISOR-C Referring Provider Active Start: September 22, 2024 End: September 22, 2024 Team Status: Active Member Role Status Dates Dr. Tu Hector DO Primary Care Provider Active Start: September 25, 2024 Rhiannon Georges TRUCKING SUPERVISOR, TRUCKING SUPERVISOR-C Attending Provider Active Start: September 25, 2024 Rhiannon Georges TRUCKING SUPERVISOR, TRUCKING SUPERVISOR-C Referring Provider Active Start: September 25, 2024 Team Status: Inactive Member Role Status Dates Dr. Tu Hector DO Primary Care Provider Active Start: September 28, 2024 End: September 28, 2024 Dr. Tu Hector DO Referring Provider Active Start: September 28, 2024 End: September 28, 2024 Rhiannon Georges TRUCKING SUPERVISOR, TRUCKING SUPERVISOR-C Attending Provider Active Start: September 28, 2024 End: September 28, 2024 Team Status: Inactive Member Role Status Dates Dr. Tu Hector DO Primary Care Provider Active Start: September 25, 2024 End: September 25, 2024 Rhiannon Georges TRUCKING SUPERVISOR, TRUCKING SUPERVISOR-C Attending Provider Active Start: September 25, 2024 End: September 25, 2024 Rhiannon Georges TRUCKING SUPERVISOR, TRUCKING SUPERVISOR-C Referring Provider Active Start: September 25, 2024 [...] October 10, 2024 End: October 10, 2024 Shift Mgr Relationship Specialty Start Date End Date Tu Hector DO [address] [place] [id number] PCP - General Family Medicine 01/12/23 Shift Mgr Relationship Specialty Start Date End Date Tu Hector DO [address] [place] [address] PCP - General Family Medicine 01/12/23 Shift Mgr Relationship Specialty Start Date End Date Tu Hector DO [address] [place] [id number] PCP - General Family Medicine 01/12/23 Shift Mgr Relationship Specialty Start Date End Date Tu Hector DO [address] [place] [address] PCP - General Family Medicine 01/12/23 Shift Mgr Relationship Specialty Start Date End Date Tu Hector DO [address] [place] [address] PCP - General Family Medicine 01/12/23 Team Status: Inactive Member Role Status Dates Dr. Tu Hector DO Primary Care Provider Active Start: October 21, 2024 End: October 21, 2024 Tay Dumont MD Emergency Provider Active Star t: October 21, 2024 End: October 21, 2024 Shift Mgr Relationship Specialty Start Date End Date Tu Hector DO [address] [place] [address] PCP - General Family Medicine 01/12/23 Shift Mgr Relationship Specialty Start Date End Date Tu Hector DO [address] [place] [address] PCP - General Family Medicine 01/12/23 Shift Mgr Relationship Specialty Start Date End Date Tu Hector DO [address] [place] [address] PCP - General Family Medicine 01/12/23 Shift Mgr Relationship Specialty Start Date End Date Tu Hector DO [address] [place] [address] PCP - General Family Medicine 01/12/23 Shift Mgr Relationship Specialty Start Date End Date Tu Hector DO [address] [place] [address] [place] [address] PCP - General Family Medicine 01/12/23 Team [...] 2024 End: October 26, 2024 Anayeli Win TRUCKING SUPERVISOR, TRUCKING SUPERVISOR-C Attending Provider Active Start: October 26, 2024 End: October 26, 2024 Team Status: Inactive Member Role Status Dates Dr. Tu Hcetor DO Primary [...] 2024 End: October 31, 2024 Anayeli Win TRUCKING SUPERVISOR, TRUCKING SUPERVISOR-C Attending Provider Active Start: October 31, 2024 End: October 31, 2024 Team Status: Inactive Member Role Status Dates Dr. Tu Hector DO Primary Care Provider Active Start: November 09, 2024 End: November 09, 2024 Dr. Tu Hector DO Referring Provider Active Start: November 09, 2024 End: November 09, 2024 Anayeli Win TRUCKING SUPERVISOR, TRUCKING SUPERVISOR-C Attending Provider Active Start: November 09, 2024 [...] 2024 End: December 12, 2024 Anayeli Win TRUCKING SUPERVISOR, TRUCKING SUPERVISOR-C Attending Provider Active Start: December 12, 2024 [...] 2024 End: September 25, 2024 Rhiannon Georges TRUCKING SUPERVISOR, TRUCKING SUPERVISOR-C Attending Provider Active Start: September 25, 2024 End: September 25, 2024 Rhiannon Georges TRUCKING SUPERVISOR, TRUCKING SUPERVISOR-C Referring Provider Active Start: September 25, 2024 End: September 25, 2024 Team Status: Active Member Role/Relationship Status Dates Dr. Tu Hector DO Primary Care Provider Active Start: September 25, 2024 Dr. Jose Perdomo DO Attending Provider Active S tart: September 25, 2024 Rhiannon Georges TRUCKING SUPERVISOR, TRUCKING SUPERVISOR-C Referring Provider Active Start: September 25, 2024 Team Status: Inactive Member Role/Relationship Status Dates Dr. Tu Hector DO Primary Care Provider Active Start: September 28, 2024 End: September 28, 2024 Dr. Tu Hector DO Referring Provider Active Start: September 28, 2024 End: September 28, 2024 Rhiannon Georges TRUCKING SUPERVISOR, TRUCKING SUPERVISOR-C Attending Provider Active Start: September 28, 2024 [...] 2024 End: October 26, 2024 Anayeli Win TRUCKING SUPERVISOR, TRUCKING SUPERVISOR-C Attending Provider Active Start: October 26, 2024 [...] 2024 End: October 31, 2024 Anayeli Win TRUCKING SUPERVISOR, TRUCKING SUPERVISOR-C Attending Provider Active Start: October 31, 2024 End: October 31, 2024 Team Status: Inactive Member Role/Relationship Status Dates Dr. Tu Hector DO Primary Care Provider Active Start: November 09, 2024 End: November 09, 2024 Dr. Tu Hector DO Referring Provider Active Start: November 09, 2024 End: November 09, 2024 Anayeli Win TRUCKING SUPERVISOR, TRUCKING SUPERVISOR-C Attending Provider Active Start: November 09, 2024 [...] 2024 End: December 12, 2024 Anayeli Win TRUCKING SUPERVISOR, TRUCKING SUPERVISOR-C Attending Provider Active Start: December 12, 2024 [...] January 16, 2025 End: January 16, 2025 Anayelijenna Win TRUCKING SUPERVISOR, TRUCKING SUPERVISOR-C Attending Provider Active Start: January 16, 2025 End: January 16, 2025 Anayelijenna Win TRUCKING SUPERVISOR, TRUCKING SUPERVISOR-C Referring Provider Active Start: January 16, 2025 End: January 16, 2025 Team Status: Inactive Member Role/Relationship Status Dates Dr. Tu Hector DO Primary Care Provider Active Start: January 16, 2025 End: January 16, 2025 Anayeli Win TRUCKING SUPERVISOR, TRUCKING SUPERVISOR-C Attending Provider Active Start: January 16, 2025 End: January 16, 2025 Anayeli Win TRUCKING SUPERVISOR, TRUCKING SUPERVISOR-C Referring Provider Active Start: January 16, 2025 [...] 2024 End: October 26, 2024 Anayeli Win TRUCKING SUPERVISOR, TRUCKING SUPERVISOR-C Attending Provider Active Start: October 26, 2024 [...] 2024 End: October 31, 2024 Anayeli Win TRUCKING SUPERVISOR, TRUCKING SUPERVISOR-C Attending Provider Active Start: October 31, 2024 End: October 31, 2024 Team Status: Inactive Member Role/Relationship Status Dates Dr. Tu Hector DO Primary Care Provider Active Start: November 09, 2024 End: November 09, 2024 Dr. Tu Hector DO Referring Provider Active Start: November 09, 2024 End: November 09, 2024 Anayeli Win TRUCKING SUPERVISOR, TRUCKING SUPERVISOR-C Attending Provider Active Start: November 09, 2024 [...] 2024 End: December 12, 2024 Anayeli Win TRUCKING SUPERVISOR, TRUCKING SUPERVISOR-C Attending Provider Active Start: December 12, 2024 [...] 2025 End: January 16, 2025 Anayeli Win TRUCKING SUPERVISOR, TRUCKING SUPERVISOR-C Attending Provider Active Start: January 16, 2025 End: January 16, 2025 Anayeli Win TRUCKING SUPERVISOR, TRUCKING SUPERVISOR-C Referring Provider Active Start: January 16, 2025 [...] January 28, 2025 End: January 28, 2025 Team Status: Inactive Member Role/Relationship Status [...] October 26, 2024 End: October 26, 2024 Anayelijenna Win TRUCKING SUPERVISOR, TRUCKING SUPERVISOR-C Attending Provider Active Start: October 26, 2024 [...] October 31, 2024 End: October 31, 2024 Anayelijenna Win TRUCKING SUPERVISOR, TRUCKING SUPERVISOR-C Attending Provider Active Start: October 31, 2024 End: October 31, 2024 Team Status: Inactive Member Role/Relationship Status Dates Dr. Tu Hector DO Primary Care Provider Active Start: November 09, 2024 End: November 09, 2024 Dr. Tu Hector DO Referring Provider Active Start: November 09, 2024 End: November 09, 2024 Anayeli Audelia TRUCKING SUPERVISOR, TRUCKING SUPERVISOR-C Attending Provider Active Start: November 09, 2024 [...] 2024 End: December 12, 2024 Anayeli Win TRUCKING SUPERVISOR, TRUCKING SUPERVISOR-C Attending Provider Active Start: December 12, 2024 [...] 2025 End: January 16, 2025 Anayeli Win TRUCKING SUPERVISOR, TRUCKING SUPERVISOR-C Attending Provider Active Start: January 16, 2025 End: January 16, 2025 Anayeli Win TRUCKING SUPERVISOR, TRUCKING SUPERVISOR-C Referring Provider Active Start: January 16, 2025 [...] January 28, 2025 Dr. Georgi Barroso DO Attending Provider Active Start: January 28, 2025 End: January 28, 2025 Dr. Georgi Barroso DO Emergency Provider Active Start: January 28, 2025 End: January 28, 2025 Team Status: Active Member Role/Relationship Status Dates TORIBIO CASTILLO Primary Care Provider Active Start: February 11, 2025 Tay Dumont MD Emergency Provider Active Star t: February 11, 2025 Dr. Ami Magdaleno MD Admit Provider Active Star t: February 11, 2025 Dr. Ami Magdaleno MD Attending Provider Active Start: February 11, 2025 Dr. Ami Magdaleno MD Other Provider Active Star t: February 11, 2025 Team Status: Inactive Member Role/Relationship Status Dates TORIBIO CASTILLO Primary Care Provider Active Start: February 11, 2025 End: February 14, 2025 Tay Dumont MD Emergency Provider Active Star t: February 11, 2025 End: February 14, 2025 Dr. Ami Magdaleno MD Admit Provider Active Star t: February 11, 2025 End: February 14, 2025 Dr. Ami Magdaleno MD Other Provider Active Star t: February 11, 2025 End: February 14, 2025 Dr. Cristin Boyce MD Other Provider Active S tart: February 11, 2025 End: February 14, 2025 Dr. Delia Mcqueen MD Attending Provider Active Start: February 11, 2025 End: February 14, 2025 Team Status: Active Member Role/Relationship Status Dates TORIBIO CASTILLO Primary Care Provider Active Start: February 11, 2025 Tay Dumont MD Emergency Provider Active Star t: February 11, 2025 Dr. Ami Magdaleno MD Admit Provider Active Star t: February 11, 2025 Dr. Ami Magdaleno MD Other Provider Active Star t: February 11, 2025 Dr. Cristin Boyce MD Attending Provider Active Start: February 11, 2025 Dr. Cristin Boyce MD Other Provider Active S tart: February 11, 2025 Dr. Delia Mcqueen MD Other Provider Active St art: February 11, 2025 Team Status: Active Member Role/Relationship Status Dates TORIBIO CASTILLO Primary Care Provider Active Start: February 12, 2025 Tay Dumont MD Emergency Provider Active Star t: February 12, 2025 Dr. Ami Magdaleno MD Admit Provider Active Star t: February 12, 2025 Dr. Ami Magdaleno MD Other Provider Active Star t: February 12, 2025 Dr. Cristin Boyce MD Other Provider Active S tart: February 12, 2025 Dr. Delia Mcqueen MD Other Provider Active St art: February 12, 2025 Heena VANCE PA-C Attending Provider Active Start: February 12, 2025 Team Status: Active Member Role/Relationship Status Dates TORIBIO CASTILLO Primary Care Provider Active Start: February 12, 2025 Tay Dumont MD Emergency Provider Active Star t: February 12, 2025 Dr. Ami Magdaleno MD Admit Provider Active Star t: February 12, 2025 Dr. Ami Magdaleno MD Other Provider Active Star t: February 12, 2025 Dr. Cristin Boyce MD Other Provider Active S tart: February 12, 2025 Dr. Delia Mcqueen MD Attending Provider Active Start: February 12, 2025 Dr. Delia Mcqueen MD Other Provider Active St art: February 12, 2025 Team Status: Active Member Role/Relationship Status Dates TORIBIO CASTILLO Primary Care Provider Active Start: February 13, 2025 Tay Dumont MD Emergency Provider Active Star t: February 13, 2025 Dr. Ami Magdaleno MD Admit Provider Active Star t: February 13, 2025 Dr. Ami Magdaleno MD Other Provider Active Star t: February 13, 2025 Dr. Cristin Boyce MD Other Provider Active S tart: February 13, 2025 Dr. Delia Mcqueen MD Other Provider Active St art: February 13, 2025 Heena VANCE PA-C Attending Provider Active Start: February 13, 2025 Team Status: Active Member Role/Relationship Status Dates TORIBIO CASTILLO Primary Care Provider Active Start: February 13, 2025 Tay Dumont MD Emergency Provider Active Star t: February 13, 2025 Dr. Ami Magdaleno MD Admit Provider Active Star t: February 13, 2025 Dr. Ami Magdaleno MD Other Provider Active Star t: February 13, 2025 Dr. Cristin Boyce MD Other Provider Active S tart: February 13, 2025 Dr. Delia Mcuqeen MD Attending Provider Active Start: February 13, 2025 Dr. Delia Mcqueen MD Other Provider Active St art: February 13, 2025 Team Status: Active Member Role/Relationship Status Dates TORIBIO CASTILLO Primary Care Provider Active Start: February 14, 2025 Tay Dumont MD Emergency Provider Active Star t: February 14, 2025 Dr. Ami Magdaleno MD Admit Provider Active Star t: February 14, 2025 Dr. Ami Magdaleno MD Other Provider Active Star t: February 14, 2025 Dr. Cristin Boyce MD Other Provider Active S tart: February 14, 2025 Dr. Delia Mcqueen MD Other Provider Active St art: February 14, 2025 Heena VANCE PA-C Attending Provider Active Start: February 14, 2025 Team Status: Active Member Role/Relationship Status Dates TORIBIO CASTILLO Primary Care Provider Active Start: February 14, 2025 Tay Dumont MD Emergency Provider Active Star t: February 14, 2025 Dr. Ami Magdaleno MD Admit Provider Active Star t: February 14, 2025 Dr. Ami Magdaleno MD Other Provider Active Star t: February 14, 2025 Dr. Cristin Boyce MD Other Provider Active S tart: February 14, 2025 Dr. Delia Mcqueen MD Attending Provider Active Start: February 14, 2025 Dr. Delia Mcqueen MD Other Provider Active St art: February 14, 2025 Team Status: Inactive Member Role/Relationship Status [...] 2024 End: October 26, 2024 Anayeli Win TRUCKING SUPERVISOR, TRUCKING SUPERVISOR-C Attending Provider Active Start: October 26, 2024 [...] 2024 End: October 31, 2024 Anayeli Win TRUCKING SUPERVISOR, TRUCKING SUPERVISOR-C Attending Provider Active Start: October 31, 2024 End: October 31, 2024 Team Status: Inactive Member Role/Relationship Status Dates Dr. Tu Hector DO Primary Care Provider Active Start: November 09, 2024 End: November 09, 2024 Dr. Tu Hector DO Referring Provider Active Start: November 09, 2024 End: November 09, 2024 Anayeli Win TRUCKING SUPERVISOR, TRUCKING SUPERVISOR-C Attending Provider Active Start: November 09, 2024 [...] 2024 End: December 12, 2024 Anayeli Win TRUCKING SUPERVISOR, TRUCKING SUPERVISOR-C Attending Provider Active Start: December 12, 2024 [...] 2025 End: January 16, 2025 Anayeli Win TRUCKING SUPERVISOR, TRUCKING SUPERVISOR-C Attending Provider Active Start: January 16, 2025 End: January 16, 2025 Anayeli Win TRUCKING SUPERVISOR, TRUCKING SUPERVISOR-C Referring Provider Active Start: January 16, 2025 [...] 2025 End: January 23, 2025 Team Status: Inactive Member Role/Relationship Status Dates TORIBIO CASTILLO Primary Care Provider Active Start: January 28, 2025 End: January 28, 2025 Dr. Georgi Barroso DO Attending Provider Active Start: January 28, 2025 End: January 28, 2025 Dr. Georgi Barroso DO Emergency Provider Active Start: January 28, 2025 End: January 28, 2025 Team Status: Inactive Member Role/Relationship Status Dates TORIBIO CASTILLO Primary Care Provider Active Start: February 11, 2025 End: February 14, 2025 Tay Dumont MD Emergency Provider Active Star t: February 11, 2025 End: February 14, 2025 Dr. Ami Magdaleno MD Admit Provider Active Star t: February 11, 2025 End: February 14, 2025 Dr. Ami Magdaleno MD Other Provider Active Star t: February 11, 2025 End: February 14, 2025 Dr. Cristin Boyce MD Other Provider Active S tart: February 11, 2025 End: February 14, 2025 Dr. Delia Mcqueen MD Attending Provider Active Start: February 11, 2025 End: February 14, 2025 Team Status: Active Member Role/Relationship Status Dates TORIBIO CASTILLO Primary Care Provider Active Start: February 11, 2025 Tay Dumont MD Emergency Provider Active Star t: February 11, 2025 Dr. Ami Magdaleno MD Admit Provider Active Star t: February 11, 2025 Dr. Ami Magdaleno MD Other Provider Active Star t: February 11, 2025 Dr. Cristin Boyce MD Attending Provider Active Start: February 11, 2025 Dr. Cristin Boyce MD Other Provider Active S tart: February 11, 2025 Dr. Delia Mcqueen MD Other Provider Active St art: February 11, 2025 Team Status: Active Member Role/Relationship Status Dates TORIBIO CASTILLO Primary Care Provider Active Start: February 12, 2025 Tay Dumont MD Emergency Provider Active Star t: February 12, 2025 Dr. Ami Magdaleno MD Admit Provider Active Star t: February 12, 2025 Dr. Ami Magdaleno MD Other Provider Active Star t: February 12, 2025 Dr. Cristin Boyce MD Other Provider Active S tart: February 12, 2025 Dr. Delia Mcqueen MD Other Provider Active St art: February 12, 2025 Heena VANCE PA-C Attending Provider Active Start: February 12, 2025 Team Status: Active Member Role/Relationship Status Dates TORIBIO CASTILLO Primary Care Provider Active Start: February 12, 2025 Tay Dumont MD Emergency Provider Active Star t: February 12, 2025 Dr. Ami Magdaleno MD Admit Provider Active Star t: February 12, 2025 Dr. Ami Magdaleno MD Other Provider Active Star t: February 12, 2025 Dr. Cristin Boyce MD Other Provider Active S tart: February 12, 2025 Dr. Delia Mcqueen MD Attending Provider Active Start: February 12, 2025 Dr. Delia Mcqueen MD Other Provider Active St art: February 12, 2025 Team Status: Active Member Role/Relationship Status Dates TORIBIO CASTILLO Primary Care Provider Active Start: February 13, 2025 Tay Dumont MD Emergency Provider Active Star t: February 13, 2025 Dr. Ami Magdaleno MD Admit Provider Active Star t: February 13, 2025 Dr. Ami Magdaleno MD Other Provider Active Star t: February 13, 2025 Dr. Cristin Boyce MD Other Provider Active S tart: February 13, 2025 Dr. Delia Mcqueen MD Other Provider Active St art: February 13, 2025 Heena VANCE PA-C Attending Provider Active Start: February 13, 2025 Team Status: Active Member Role/Relationship Status Dates TORIBIO CASTILLO Primary Care Provider Active Start: February 13, 2025 Tay Dumont MD Emergency Provider Active Star t: February 13, 2025 Dr. Ami Magdaleno MD Admit Provider Active Star t: February 13, 2025 Dr. Ami Magdaleno MD Other Provider Active Star t: February 13, 2025 Dr. Cristin Boyce MD Other Provider Active S tart: February 13, 2025 Dr. Delia Mcqueen MD Attending Provider Active Start: February 13, 2025 Dr. Delia Mcqueen MD Other Provider Active St art: February 13, 2025 Team Status: Active Member Role/Relationship Status Dates TORIBIO CASTILLO Primary Care Provider Active Start: February 14, 2025 Tay Dumont MD Emergency Provider Active Star t: February 14, 2025 Dr. Ami Magdaleno MD Admit Provider Active Star t: February 14, 2025 Dr. Ami Magdaleno MD Other Provider Active Star t: February 14, 2025 Dr. Cristin Boyce MD Other Provider Active S tart: February 14, 2025 Dr. Delia Mcqueen MD Other Provider Active St art: February 14, 2025 Heena VANCE PA-C Attending Provider Active Start: February 14, 2025 Team Status: Active Member Role/Relationship Status Dates TORIBIO CASTILLO Primary Care Provider Active Start: February 14, 2025 Tay Dumont MD Emergency Provider Active Star t: February 14, 2025 Dr. Ami Magdaleno MD Admit Provider Active Star t: February 14, 2025 Dr. Ami Magdaleno MD Other Provider Active Star t: February 14, 2025 Dr. Cristin Boyce MD Other Provider Active S tart: February 14, 2025 Dr. Delia Mcqueen MD Attending Provider Active Start: February 14, 2025 Dr. Delia Mcqueen MD Other Provider Active St art: February 14, 2025 Team Status: Active Member Role/Relationship Status Dates Dr. Kilo Morse MD Attending Provider Active Start: February 19, 2025 JOSELIN MAST , BAT[employer]Y [employer]S ASSEMBLER Primary Care Provider Active Start: February 19, 2025 JOSELIN MAST , [employer] ASSEMBLER Referring Provider Active Sta rt: February 19, 2025 Team Status: Active Member Role/Relationship Status Dates JOSELIN MAST , [employer] ASSEMBLER Primary Care Provider Active Start: February 19, 2025 Dr. Porter Preston MD Attending Provider Active S tart: February 19, 2025 Team Status: Inactive Member Role/Relationship Status Dates JOSELIN MAST , BATTERY [employer] ASSEMBLER Primary Care Provider Active Start: February 20, 2025 End: February 20, 2025 JOSELIN MAST , BATTERY [employer]S ASSEMBLER Referring Provider Active Sta rt: February 20, 2025 End: February 20, 2025 Anayeli Win TRUCKING SUPERVISOR, TRUCKING SUPERVISOR-C Attending Provider Active Start: February 20, 2025 End: February 20, 2025 Team Status: Active Member Role/Relationship Status Dates Dr. Tu Hector DO Primary Care Provider Active Start: February 20, 2025 Dr. Alis Chance MD Attending Provider Active Start: February 20, 2025 Dr. Alis Chance MD Referring Provider Active Start: February 20, 2025 Team Status: Inactive Member Role/Relationship Status Dates Dr. Tu Hector DO Primary Care Provider Active Start: October 31, 2024 End: October 31, 2024 Dr. Tu Hector DO Referring Provider Active Start: October 31, 2024 End: October 31, 2024 Anayeli Win TRUCKING SUPERVISOR, TRUCKING SUPERVISOR-C Attending Provider Active Start: October 31, 2024 End: October 31, 2024 Team Status: Inactive Member Role/Relationship Status Dates Dr. Tu Hector DO Primary Care Provider Active Start: November 09, 2024 End: November 09, 2024 Dr. Tu Hector DO Referring Provider Active Start: November 09, 2024 End: November 09, 2024 Anayeli Win TRUCKING SUPERVISOR, TRUCKING SUPERVISOR-C Attending Provider Active Start: November 09, 2024 [...] 2024 End: December 12, 2024 Anayeli Audelia TRUCKING SUPERVISOR, TRUCKING SUPERVISOR-C Attending Provider Active Start: December 12, 2024 [...] January 16, 2025 End: January 16, 2025 Anayelijenna Win TRUCKING SUPERVISOR, TRUCKING SUPERVISOR-C Attending Provider Active Start: January 16, 2025 End: January 16, 2025 Anayeli Win TRUCKING SUPERVISOR, TRUCKING SUPERVISOR-C Referring Provider Active Start: January 16, 2025 [...] 2025 End: January 23, 2025 Team Status: Inactive Member Role/Relationship Status Dates TORIBIO CASTILLO Primary Care Provider Active Start: January 28, 2025 End: January 28, 2025 Dr. Georgi Barroso DO Attending Provider Active Start: January 28, 2025 End: January 28, 2025 Dr. Georgi Barroso DO Emergency Provider Active Start: January 28, 2025 End: January 28, 2025 Team Status: Inactive Member Role/Relationship Status Dates TORIBIO CASTILLO Primary Care Provider Active Start: February 11, 2025 End: February 14, 2025 Tay Dumont MD Emergency Provider Active Star t: February 11, 2025 End: February 14, 2025 Dr. Ami Magdaleno MD Admit Provider Active Star t: February 11, 2025 End: February 14, 2025 Dr. Ami Magdaleno MD Other Provider Active Star t: February 11, 2025 End: February 14, 2025 Dr. Cristin Boyce MD Other Provider Active S tart: February 11, 2025 End: February 14, 2025 Dr. Delia Mcqueen MD Attending Provider Active Start: February 11, 2025 End: February 14, 2025 Team Status: Active Member Role/Relationship Status Dates TORIBIO CASTILLO Primary Care Provider Active Start: February 11, 2025 Tay Dumont MD Emergency Provider Active Star t: February 11, 2025 Dr. Ami Magdaleno MD Admit Provider Active Star t: February 11, 2025 Dr. Ami Magdaleno MD Other Provider Active Star t: February 11, 2025 Dr. Cristin Boyce MD Attending Provider Active Start: February 11, 2025 Dr. Cristin Boyce MD Other Provider Active S tart: February 11, 2025 Dr. Delia Mcqueen MD Other Provider Active St art: February 11, 2025 Team Status: Active Member Role/Relationship Status Dates TORIBIO CASTILLO Primary Care Provider Active Start: February 12, 2025 Tay Dumont MD Emergency Provider Active Star t: February 12, 2025 Dr. Ami Magdaleno MD Admit Provider Active Star t: February 12, 2025 Dr. Ami Magdaleno MD Other Provider Active Star t: February 12, 2025 Dr. Cristin Boyce MD Other Provider Active S tart: February 12, 2025 Dr. Delia Mcqueen MD Other Provider Active St art: February 12, 2025 Heena VANCE PA-C Attending Provider Active Start: February 12, 2025 Team Status: Active Member Role/Relationship Status Dates TORIBIO CASTILLO Primary Care Provider Active Start: February 12, 2025 Tay Dumont MD Emergency Provider Active Star t: February 12, 2025 Dr. Ami Magdaleno MD Admit Provider Active Star t: February 12, 2025 Dr. Ami Magdaleno MD Other Provider Active Star t: February 12, 2025 Dr. Cristin Boyce MD Other Provider Active S tart: February 12, 2025 Dr. Delia Mcqueen MD Attending Provider Active Start: February 12, 2025 Dr. Delia Mcqueen MD Other Provider Active St art: February 12, 2025 Team Status: Active Member Role/Relationship Status Dates LIZZETTE CASTILLONP Primary Care Provider Active Start: February 13, 2025 Tay Dumont MD Emergency Provider Active Star t: February 13, 2025 Dr. Ami Magdaleno MD Admit Provider Active Star t: February 13, 2025 Dr. Ami Magdaleno MD Other Provider Active Star t: February 13, 2025 Dr. Cristin Boyce MD Other Provider Active S tart: February 13, 2025 Dr. Delia Mcqueen MD Other Provider Active St art: February 13, 2025 Heena VANCE PA-C Attending Provider Active Start: February 13, 2025 Team Status: Active Member Role/Relationship Status Dates TORIBIO CASTILLO Primary Care Provider Active Start: February 13, 2025 Tay Dumont MD Emergency Provider Active Star t: February 13, 2025 Dr. Ami Magdaleno MD Admit Provider Active Star t: February 13, 2025 Dr. Ami Magdaleno MD Other Provider Active Star t: February 13, 2025 Dr. Cristin Boyce MD Other Provider Active S tart: February 13, 2025 Dr. Delia Mcqueen MD Attending Provider Active Start: February 13, 2025 Dr. Delia Mcqueen MD Other Provider Active St art: February 13, 2025 Team Status: Active Member Role/Relationship Status Dates LIZZETTE CASTILLONP Primary Care Provider Active Start: February 14, 2025 Tay Dumont MD Emergency Provider Active Star t: February 14, 2025 Dr. Ami Magdaleno MD Admit Provider Active Star t: February 14, 2025 Dr. Ami Magdaleno MD Other Provider Active Star t: February 14, 2025 Dr. Cristin Boyce MD Other Provider Active S tart: February 14, 2025 Dr. Delia Mcqueen MD Other Provider Active St art: February 14, 2025 Heena VANCE PA-C Attending Provider Active Start: February 14, 2025 Team Status: Active Member Role/Relationship Status Dates LIZZETTE CASTILLONP Primary Care Provider Active Start: February 14, 2025 Tay Dumont MD Emergency Provider Active Star t: February 14, 2025 Dr. Ami Magdaleno MD Admit Provider Active Star t: February 14, 2025 Dr. Ami Magdaleno MD Other Provider Active Star t: February 14, 2025 Dr. Cristin Boyce MD Other Provider Active S tart: February 14, 2025 Dr. Delia Mcqueen MD Attending Provider Active Start: February 14, 2025 Dr. Delia Mcqueen MD Other Provider Active St art: February 14, 2025 Team Status: Inactive Member Role/Relationship Status Dates Dr. Kilo Morse MD Attending Provider Active Start: February 19, 2025 End: February 19, 2025 JOSELIN MAST , [employer] ASSEMBLER Primary Care Provider Active Start: February 19, 2025 End: February 19, 2025 JOSELIN MAST , BAT[employer] ASSEMBLER Referring Provider Active Sta rt: February 19, 2025 End: February 19, 2025 Team Status: Active Member Role/Relationship Status Dates JOSELIN MAST , [employer] ASSEMBLER Primary Care Provider Active Start: February 19, 2025 Dr. Porter Preston MD Attending Provider Active S tart: February 19, 2025 Team Status: Inactive Member Role/Relationship Status Dates JOSELIN MAST , BAT[employer] ASSEMBLER Primary Care Provider Active Start: February 20, 2025 End: February 20, 2025 JOSELIN MAST , BAT[employer]S ASSEMBLER Referring Provider Active Sta rt: February 20, 2025 End: February 20, 2025 Anayeli Win TRUCKING SUPERVISOR, TRUCKING SUPERVISOR-C Attending Provider Active Start: February 20, 2025 End: February 20, 2025 Team Status: Active Member Role/Relationship Status Dates Dr. Tu Hector DO Primary Care Provider Active Start: February 20, 2025 Dr. Alis Chance MD Attending Provider Active Start: February 20, 2025 Dr. Alis hCance MD Referring Provider Active Start: February 20, 2025 Team Status: Inactive Member Role/Relationship Status Dates Dr. Tu Hector DO Primary Care Provider Active Start: November 09, 2024 End: November 09, 2024 Dr. Tu Hector DO Referring Provider Active Start: November 09, 2024 End: November 09, 2024 Anayeli Win TRUCKING SUPERVISOR, TRUCKING SUPERVISOR-C Attending Provider Active Start: November 09, 2024 [...] 2024 End: December 12, 2024 Anayeli Win NP, TRUCKING SUPERVISOR-C Attending Provider Active Start: December 12, 2024 [...] 2025 End: January 16, 2025 Anayeli Win TRUCKING SUPERVISOR, TRUCKING SUPERVISOR-C Attending Provider Active Start: January 16, 2025 End: January 16, 2025 Anayeli Win TRUCKING SUPERVISOR, TRUCKING SUPERVISOR-C Referring Provider Active Start: January 16, 2025 [...] 2025 End: January 23, 2025 Team Status: Inactive Member Role/Relationship Status Dates TORIBIO CASTILLO Primary Care Provider Active Start: January 28, 2025 End: January 28, 2025 Dr. Georgi Barroso DO Attending Provider Active Start: January 28, 2025 End: January 28, 2025 Dr. Georgi Barroso DO Emergency Provider Active Start: January 28, 2025 End: January 28, 2025 Team Status: Inactive Member Role/Relationship Status Dates TORIBIO CASTILLO Primary Care Provider Active Start: February 11, 2025 End: February 14, 2025 Tay Dumont MD Emergency Provider Active Star t: February 11, 2025 End: February 14, 2025 Dr. Ami Magdaleno MD Admit Provider Active Star t: February 11, 2025 End: February 14, 2025 Dr. Ami Magdaleno MD Other Provider Active Star t: February 11, 2025 End: February 14, 2025 Dr. Cristin Boyce MD Other Provider Active S tart: February 11, 2025 End: February 14, 2025 Dr. Delia Mcqueen MD Attending Provider Active Start: February 11, 2025 End: February 14, 2025 Team Status: Active Member Role/Relationship Status Dates TORIBIO CASTILLO Primary Care Provider Active Start: February 11, 2025 Tay Dumont MD Emergency Provider Active Star t: February 11, 2025 Dr. Ami Magdaleno MD Admit Provider Active Star t: February 11, 2025 Dr. Ami Magdaleno MD Other Provider Active Star t: February 11, 2025 Dr. Cristin Boyce MD Attending Provider Active Start: February 11, 2025 Dr. Cristin Boyce MD Other Provider Active S tart: February 11, 2025 Dr. Delia Mcqueen MD Referring Provider Active Start: February 11, 2025 Dr. Delia Mcqueen MD Other Provider Active St art: February 11, 2025 Team Status: Active Member Role/Relationship Status Dates TORIBIO CASTILLO Primary Care Provider Active Start: February 12, 2025 Tay Dumont MD Emergency Provider Active Star t: February 12, 2025 Dr. Ami Magdaleno MD Admit Provider Active Star t: February 12, 2025 Dr. Ami Magdaleno MD Other Provider Active Star t: February 12, 2025 Dr. Cristin Boyce MD Other Provider Active S tart: February 12, 2025 Dr. Delia Mcqueen MD Other Provider Active St art: February 12, 2025 Heena VANCE PA-C Attending Provider Active Start: February 12, 2025 Team Status: Active Member Role/Relationship Status Dates TORIBIO CASTILLO Primary Care Provider Active Start: February 12, 2025 Tay Dumont MD Emergency Provider Active Star t: February 12, 2025 Dr. Ami Magdaleno MD Admit Provider Active Star t: February 12, 2025 Dr. Ami Magdaleno MD Other Provider Active Star t: February 12, 2025 Dr. Cristin Boyce MD Other Provider Active S tart: February 12, 2025 Dr. Delia Mcqueen MD Attending Provider Active Start: February 12, 2025 Dr. Delia Mcqueen MD Other Provider Active St art: February 12, 2025 Team Status: Active Member Role/Relationship Status Dates TORIBIO CASTILLO Primary Care Provider Active Start: February 13, 2025 Tay Dumont MD Emergency Provider Active Star t: February 13, 2025 Dr. Ami Magdaleno MD Admit Provider Active Star t: February 13, 2025 Dr. Ami Magdaleno MD Other Provider Active Star t: February 13, 2025 Dr. Cristin Boyce MD Other Provider Active S tart: February 13, 2025 Dr. Delia Mcqueen MD Other Provider Active St art: February 13, 2025 Heena VANCE PA-C Attending Provider Active Start: February 13, 2025 Team Status: Active Member Role/Relationship Status Dates TORIBIO CASTILLO Primary Care Provider Active Start: February 13, 2025 Tay Dumont MD Emergency Provider Active Star t: February 13, 2025 Dr. Ami Magdaleno MD Admit Provider Active Star t: February 13, 2025 Dr. Ami Magdaleno MD Other Provider Active Star t: February 13, 2025 Dr. Cristin Boyce MD Other Provider Active S tart: February 13, 2025 Dr. Delia Mcqueen MD Attending Provider Active Start: February 13, 2025 Dr. Delia Mcqueen MD Other Provider Active St art: February 13, 2025 Team Status: Active Member Role/Relationship Status Dates LIZZETTE CASTILLONP Primary Care Provider Active Start: February 14, 2025 Tay Dumont MD Emergency Provider Active Star t: February 14, 2025 Dr. Ami Magdaleno MD Admit Provider Active Star t: February 14, 2025 Dr. Ami Magdaleno MD Other Provider Active Star t: February 14, 2025 Dr. Cristin Boyce MD Other Provider Active S tart: February 14, 2025 Dr. Delia Mcqueen MD Other Provider Active St art: February 14, 2025 Heena VANCE PA-C Attending Provider Active Start: February 14, 2025 Team Status: Active Member Role/Relationship Status Dates TORIBIO CASTILLO Primary Care Provider Active Start: February 14, 2025 Tay Dumont MD Emergency Provider Active Star t: February 14, 2025 Dr. Ami Magdaleno MD Admit Provider Active Star t: February 14, 2025 Dr. Ami Magdaleno MD Other Provider Active Star t: February 14, 2025 Dr. Cristin Boyce MD Other Provider Active S tart: February 14, 2025 Dr. Delia Mcqueen MD Attending Provider Active Start: February 14, 2025 Dr. Delia Mcqueen MD Other Provider Active St art: February 14, 2025 Team Status: Inactive Member Role/Relationship Status Dates Dr. Kilo Morse MD Attending Provider Active Start: February 19, 2025 End: February 19, 2025 JOSELIN MAST , [employer] ASSEMBLER Primary Care Provider Active Start: February 19, 2025 End: February 19, 2025 JOSELIN MAST , [employer] ASSEMBLER Referring Provider Active Sta rt: February 19, 2025 End: February 19, 2025 Team Status: Active Member Role/Relationship Status Dates JOSELIN MAST , [employer] ASSEMBLER Primary Care Provider Active Start: February 19, 2025 Dr. Porter Preston MD Attending Provider Active S tart: February 19, 2025 Team Status: Inactive Member Role/Relationship Status Dates JOSELIN MAST , [employer] ASSEMBLER Primary Care Provider Active Start: February 20, 2025 End: February 20, 2025 JOSELIN MAST , [employer] ASSEMBLER Referring Provider Active Sta rt: February 20, 2025 End: February 20, 2025 Anayeli Audelia TRUCKING SUPERVISOR, TRUCKING SUPERVISOR-C Attending Provider Active Start: February 20, 2025 End: February 20, 2025 Team Status: Active Member Role/Relationship Status Dates Dr. Tu Hector DO Primary Care Provider Active Start: February 20, 2025 Dr. Alis Chance MD Attending Provider Active Start: February 20, 2025 Dr. Alis Chance MD Referring Provider Active Start: February 20, 2025 Team Status: Inactive Member Role/Relationship Status Dates JOSELIN MAST , [employer] AS[employer]BLER Primary Care Provider Active Start: February 26, 2025 End: February 26, 2025 Anayeli Audelia TRUCKING SUPERVISOR, TRUCKING SUPERVISOR-C Attending Provider Active Start: February 26, 2025 End: February 26, 2025 Anayeli Audelia TRUCKING SUPERVISOR, TRUCKING SUPERVISOR-C Referring Provider Active Start: February 26, 2025 End: February 26, 2025 Team Status: Inactive Member Role/Relationship Status Dates JOSELIN MAST , [employer] ASSEMBLER Primary Care Provider Active Start: February 26, 2025 End: February 26, 2025 Anayeli Audelia TRUCKING SUPERVISOR, TRUCKING SUPERVISOR-C Attending Provider Active Start: February 26, 2025 End: February 26, 2025 Anayeli Audelia TRUCKING SUPERVISOR, TRUCKING SUPERVISOR-C Referring Provider Active Start: February 26, 2025 End: February 26, 2025 Team Status: Inactive Member Role/Relationship Status Dates TORIBIO CASTILLO Primary Care Provider Active Start: March 06, 2025 End: March 06, 2025 TORIBIO CASTILLO Referring Provider Active Sta rt: March 06, 2025 End: March 06, 2025 Dr. Alis Chance MD Attending Provider Active Start: March 06, 2025 End: March 06, 2025 Team Status: Active Member Role/Relationship Status Dates Dr. Tu Hector DO Primary Care Provider Active Start: March 06, 2025 Dr. Alis Chance MD Attending Provider Active Start: March 06, 2025 Dr. Alis Chance MD Referring Provider Active Start: March 06, 2025 Source Comments (unrecognize d section and content) In the event this informatio n is protected by the Federal Confidentiality of Alcohol and Drug Abuse Patient Records regulations: The Federal rules restrict any use of the information to criminally investigate or prosecute any alcohol or drug abuse patient.[facility] the event this information is protected by the Federal Confidentiality of Alcohol and Drug Abuse Patient Records regulations: The Federal rules restrict any use of the information to criminally investigate or prosecute any alcohol or drug abuse patient.[facility] the event this information is protected by the Federal Confidentiality of Alcohol and Drug Abuse Patient Records regulations: The Federal rules restrict any use of the information to criminally investigate or prosecute any alcohol or drug abuse patient.[facility]In the event this information is protected by the Federal Confidentiality of Alcohol and Drug Abuse Patient Records regulations: The Federal rules restrict any use of the information to criminally investigate or prosecute any alcohol or drug abuse patient.[facility] System[facility] the event this information is protected by the Federal Confidentiality of Alcohol and Drug Abuse Patient Records regulations: The Federal rules restrict any use of the information to criminally investigate or prosecute any alcohol or drug abuse patient.[facility] System[facility] the event this information is protected by the Federal Confidentiality of Alcohol and Drug Abuse Patient Records regulations: The Federal rules restrict any use of the information to criminally investigate or prosecute any alcohol or drug abuse patient.[facility] System[facility] the event this information is protected by the Federal Confidentiality of Alcohol and Drug Abuse Patient Records regulations: The Federal rules restrict any use of the information to criminally investigate or prosecute any alcohol or drug abuse patient.[facility] Reason for Visit (unrecogniz ed section and [...] LNC and Cardiology eval / PFT From [place] [facility] Reason Comments New Patient Shortness of Breath >1yr Reason Comments New Patient Reason Onset Date Comments Care Coordination 10/05/2024 Reason Comments Tumor Board Recommendations Thoracic Dalila or Board Recommendations 10/17/24 Reason Comments Follow-up Reason Onset Date Comments Care Coordination 10/17/2024 Expedite PET s can and send records to med onc in [place] Reason Onset Date Comments Error (VOID this visit) 10/23/2024 Reason Comments New Patient Thyroid Problem Thyroid nodule Specialty Diagnoses / Procedures Referred By Jeffery t Referred To Contact Endocrinology Diagnoses Nontoxic single thyroid nodule Procedures ID OFFICE/OUTPATIENT NEW MODERATE MDM 45 MINUTES Mast, Joselin [address] [place] [address] Phone: tel: fax: [facility] - [address] [place] [address] Phone: tel: fax: Referral ID Status Reason Start Date Expiration Date V isits Requested Visits Authorized [id number] Pending Review 10/24/2024 10/24/2025 1 1 Reason Onset Date Comments Other 11/01/2024 Goals (unrecognized section and content) Goals may be documented in a n alternate section INFORMATION SOURCE (unrecogn ized section and content) DATE CREATED AUTHOR 02/27/2024 [facility] ([place]) DATE CREATED AUTHOR AUTHOR'S ORGANIZ ATION 09/04/2024 [facility] DATE CREATED AUTHOR AUTHOR'S ORGANIZ ATION 11/24/2024 [facility] DATE CREATED AUTHOR AUTHOR'S ORGANIZ ATION 12/02/2024 [facility] DATE CREATED AUTHOR AUTHOR'S ORGANIZ ATION 03/03/2025 [facility] DATE CREATED AUTHOR AUTHOR'S ORGANIZ ATION 03/13/2025 [facility] Scheduled Active and Recently Administ ered Medications [...] RN) 1036 (Given - Provider: Dannielle Lawson, RYAN) sodium chloride 0.9% (NS) flush 5-40 mL [...] Ricarda 10/05/24 at 2209 barium sulfate (Varibar [place], Varibar Honey) 40 % suspension 10 mL (COMPLETED) 10 mL, Oral, IMG once PRN, contrast, Starting on Wed10/06/24 at 0858, For 1 dose 0903 (Given - Provid er: Veronica yL, RT (R)) barium sulfate (Varibar Pudding) 40 [...] pupils, RR < 8; notify primary team family preservation officer if used ondansetron (Zofran) injection 4 mg(Linked [...] long duration, Starting on Ricarda 10/05/24 at 2210, For piggyback infusion, administer at same rate [...] line use, Starting on Ricarda 10/05/24 at 221, For Line Patency: Peripheral IV = 5 [...] hours PRN, moderate pain (4-6), Starting on Ricarad 10/05/24 at 2016 Or oxyCODONE (Roxicodone) immediate [...] 1453, Intraprocedure 1453 (Given - Provid er: Daija Mejia MD - Comment: given via bronch scope)1532 (Given - Provider: Daija Mejia MD - Comment: given via bronch [...] 1533, Intraprocedure 1533 (Given - Provid er: Daija Mejia MD - Comment: given via bronch [...] BE BASED ON THE PRIMARY CLINICAL RECORDS. [facility]. provides no warranty or guarantee of the accuracy or completeness of information in this document.
== END 2025-03-18 12:35 | disposition home or self-care (01) ==
LOC: ED 12:22
PROVIDERS: Emergency Provider Emergency Medicine; PCP Nurse Practitioner Adult Health; Visit Provider Emergency Medicine
DX: Z76.0 Encounter for issue of repeat prescription (principal); J44.9 Chronic obstructive pulmonary disease, unspecified; N18.9 Chronic kidney disease, unspecified; I12.9 Hypertensive chronic kidney disease with stage 1 through stage 4 chronic kidney disease, or unspecified chronic kidney disease; E78.5 Hyperlipidemia, unspecified; Z79.899 Other long term (current) drug therapy; Z79.51 Long term (current) use of inhaled steroids; Z87.891 Personal history of nicotine dependence
CPT/HCPCS: 99282

== ENCOUNTER → 2025-04-10 | Outpatient (CLI) | payer MEDICARE, SELFPAY ==
[2025-04-10 12:11] LABS: Anion Gap 10 (5-15); BUN 22 mg/dL (4-19); BUN/Creat Ratio 25.6 RATIO (10-20); Calcium,Total 7.6 mg/dL (7.6-11.0); Carbon Dioxide 23.6 mmol/L (21.0-32.0); Chloride 99 mmol/L (98-108); Glucose 84 mg/dL (70-99); Potassium 3.8 mmol/L (3.3-5.1)
== END | disposition home or self-care (01) ==
LOC: LAB 10:11
PROVIDERS: PCP Nurse Practitioner Adult Health; Referring Provider Nurse Practitioner Family; Visit Provider Nurse Practitioner Family
DX: R00.0 Tachycardia, unspecified (principal)
CPT/HCPCS: 36415; 80048

== ENCOUNTER 2025-04-14 12:15 | Inpatient (IN) | payer MEDICARE, SELFPAY ==
--- OUTSIDE RECORDS SUMMARY | 2025-04-09 10:00 | XMS RPT_ITS ---
Author Name Auto Generated Organization OHIP Support Name Relationship Address Phone DIAZ CORDOVA Next of Kin Unknown [phone] CRYSTAL RODRIGUEZ Next of Kin Unknown [phone] DIAZ CORDOVA Next of Kin Unknown [phone] CRYSTAL RODRIGUEZ Next of Kin Unknown [phone] DIAZ CORDOVA Next of Kin Unknown [phone] CRYSTAL RODRIGUEZ Next of Kin Unknown [phone] DIAZ CORDOVA Next of Kin Unknown [phone] CRYSTAL RODRIGUEZ Next of Kin Unknown [phone] DIAZ CORDOVA Next of Kin Unknown [phone] [facility] Next of Kin Unknown [phone] DIAZ CORDOVA Next of Kin Unknown [phone] [facility] Next of Kin Unknown [phone] DIAZ CORDOVA Next of Kin Unknown [phone] [facility] Next of Kin Unknown [phone] DIAZ CORDOVA Next of Kin Unknown [phone]~(330 SHERRON [facility] Next of Kin Unknown [phone] DIAZ CORDOVA Next of Kin Unknown [phone]~(330 SHERRON [facility] Next of Kin Unknown [phone] DIAZ CORDOVA Next of Kin Unknown [phone]~(330 [facility] Next of Kin Unknown [phone] DIAZ CORDOVA Next of Kin Unknown [phone] CRYSTAL RODRIGUEZ Next of Kin Unknown [phone] DIAZ CORDOVA Next of Kin Unknown [phone]~(330 [facility] Next of Kin Unknown [phone] DIAZ CORDOVA Next of Kin Unknown [phone]~(330 SHERRON, YURI Next of Kin Unknown [phone] MARY CORDOVAA Next of Kin Unknown [phone]~(330 SHERRON YUIR Next of Kin Unknown [phone] DIAZ CORDOVA Next of Kin Unknown [phone]~(330 [facility] Next of Kin Unknown [phone] DIAZ CORDOVA Next of Kin Unknown [phone] CRYSTAL RODRIGUEZ Next of Kin Unknown [phone] DIAZ CORDOVA Next of Kin Unknown [phone] CRYSTAL RODRIGUEZ Next of Kin Unknown [phone] DIAZ CORDOVA Next of Kin Unknown [phone] CRYSTAL RODRIGUEZ Next of Kin Unknown [phone] DIAZ CORDOVA Next of Kin Unknown [phone] CRYSTAL RODRIGUEZ Next of Kin Unknown [phone] Care Team Providers Care Stock Trader Name Role Phone MAST ELECTRIC METER INSTALLER HELPER-PAINTER SHIPYARD, GIOVANNI Primary Care Unavailabl e MAST ELECTRIC METER INSTALLER HELPER-PAINTER SHIPYARD, GIOVANNI Attending Unavailabl e MAST ELECTRIC METER INSTALLER HELPER-PAINTER SHIPYARD, GIOVANNI Primary Care Unavailabl e MAST ELECTRIC METER INSTALLER HELPER-PAINTER SHIPYARD, GIOVANNI Attending Unavailabl e MAST ELECTRIC METER INSTALLER HELPER-PAINTER SHIPYARD, GIOVANNI Attending Unavailabl e LEI DO, TU Primary Care Unavailable MAST ELECTRIC METER INSTALLER HELPER-PAINTER SHIPYARD, GIOVANNI Attending Unavailabl e LEI DO, TU Primary Care Unavailable MAST ELECTRIC METER INSTALLER HELPER-PAINTER SHIPYARD, GIOVANNI Attending Unavailabl e LEI DO, TU Primary Care Unavailable MAST ELECTRIC METER INSTALLER HELPER-PAINTER SHIPYARD, GIOVANNI Attending Unavailabl e LEI DO, TU Primary Care Unavailable MAST ELECTRIC METER INSTALLER HELPER-PAINTER SHIPYARD, GIOVANNI Attending Unavailabl e MAST ELECTRIC METER INSTALLER HELPER-PAINTER SHIPYARD, GIOVANNI Primary Care Unavailabl e LEI DO, TU Primary Care Unavailable NOHEMY MYERS, DR JANNETH Browne Attending Unavatoribio FORMAN MD, ENDI Tao Attending Unavailable LEI DO, TU Primary Care Unavailable SERGIO MOHR Referring Unavailable LEI, TU Primary Care Unavailable CAIN MEJIA Attending Unavailable CAIN MEJIA Admitting Unavailable LEI, TU Primary Care Unavailable NONE, PCP Referring Unavailable ILLAWANDA, EMILE Attending Unavailable ILODI EMILE Admitting Unavailable LEI, TU Primary Care Unavailable FORTUNE, SILVIO Referring Unavailable FORTUNE, SILVIO Attending Unavailable LEI, TU Primary Care Unavailable FORTUNE, SILVIO Referring Unavailable FORTUNE, SILVIO Attending Unavailable FORTUNE, SILVIO Attending Unavailable LEI, TU Primary Care Unavailable MAST GIOVANNI Referring Unavailable JOSELYN TUCKER Attending Unavailable LEI, TU Primary Care Unavailable LEI, TU Primary Care Unavailable FORTUNE, SILVIO Attending Unavailable RACHEL JOHNSON Attending Unava ilable LEI, TU Primary Care Unavailable IRIS LUIS Attending Unavailable LEI, TU Primary Care Unavailable LEI, TU Primary Care Unavailable RACHEL JOHNSON Attending Unava ilable PROBLEMS DATE TYPE CONDITION / CODE ATTENDING STATUS [facility] 04/02/2025 Admitting Diagnosis Hypokalemia / E87.6(ICD-10) ERASTO ELECTRIC METER INSTALLER HELPER-PAINTER SHIPYARD, GIOVANNI [facility] 11/24/2024 Unknown Displaced fractu re of distal phalanx of left thumb, initial encounter for closed fracture / S62.522A(ICD-10) ENID FORMAN MD [facility] 11/24/2024 Unknown Laceration witho ut foreign body of left thumb without damage to nail, initial encounter / S61.012A(ICD-10) ENID FORMAN MD [facility] 10/26/2024 Admitting Diagnosis Chronic kidney disease, stage 3a (HCC) / N18.31(ICD-10) JOSELYN TUCKER [facility] 10/26/2024 Admitting Diagnosis Nontoxic multinodular goiter / E04.2(ICD-10) JOSELYN TUCKER [facility] 10/03/2024 Admitting Diagnosis Other ill-defined heart diseases / I51.89(ICD-10) [facility] 10/24/2024 Admitting Diagnosis Malignant (primary) neoplasm, unspecified (HCC) / C80.1(ICD-10) [facility] 10/17/2024 Admitting Diagnosis Chronic obstructive pulmonary disease, unspecified (HCC) / J44.9(ICD-10) HOUSTON Tao [facility] 10/17/2024 Admitting Diagnosis Other specified pleural conditions / J94.8(ICD-10) [facility] 10/05/2024 Admitting Diagnosis Other nonspecific abnormal finding of lung field / R91.8(ICD-10) JACKIE [facility] 10/05/2024 Admitting Diagnosis Enlarged lymph nodes, unspecified / R59.9(ICD-10) CAIN MEJIA [facility] 10/05/2024 Admitting Diagnosis Pleural effusion, not elsewhere classified / J90(ICD-10) EMILE HORNE [facility] 10/03/2024 Admitting Diagnosis Other pericardial effusion (noninflammatory) / I31.39(ICD-10) IRIS LUIS [facility] 10/03/2024 Admitting Diagnosis Emphysema, unspecified (HCC) / J43.9(ICD-10) [facility] [facility] Admitting Diagnosis New Patient / 542() [facility] 09/13/2024 Admitting Diagnosis Essential (primary) hypertension / I10(ICD-10) MAST ELECTRIC METER INSTALLER [facility] 09/13/2024 Admitting Diagnosis Dysphagia, unspecified / R13.10(ICD-10) MAST ELECTRIC METER INSTALLER [facility] 09/13/2024 Admitting Diagnosis Personal history of nicotine dependence / Z87.891(ICD-10) MAST ELECTRIC METER INSTALLER [facility] 05/31/2024 Active Acute cough / R05.1(ICD-10) NA Active To Clinic To PROCEDURES No Procedure Records Found RESULTS BMP Collected: 04/09/2025 10:03 AM Status: F Source: [facility] Order Comment: cc Dr Daniel TYPE CODE TESTS RESULT OUT OF RANGE REFERENCE UNITS LAB GLU(LOINC) Glucose Level 91 83-110 mg/dL LAB NA(LOINC) Sodium Level 138 136-145 mmol/L LAB K(LOINC) Potassium Level 4.3 3.5-5.1 mmol/L LAB CL(LOINC) Chloride 102 98-107 mmol/L LAB CO2(LOINC) CO2 30 23-31 mmol/L LAB EBAL(LOINC) Electrolyte Balance 6.0 4.0-15.0 mEq/L LAB BUN(LOINC) BUN 19 High 7-18 mg/dL LAB CRE(LOINC) Creatinine Lvl (s) 0.99 High 0.51-0.95 mg/dL LAB BC(LOINC) BUN/Creatinine Ratio 19 7-27 ratio LAB CA(LOINC) Calcium Lvl 7.8 Low 8.4-10.2 mg/dL Performed By: #### GFR, BMP #### [address] [address] .GFR Collected: 10:03 AM Status: F Source: [facility] TYPE CODE TESTS RESULT OUT OF RANGE REFERENCE UNITS LAB eGFR(LOINC) Estimated Glomerular Filtration Rate 60 ml/min/1. 73sqm Result Comment: Stages of Chronic Kidney Disease [...] calculate the eGFR results. Performed By: #### GFR, BMP #### [address] [address] BMP Collected: 04/02/2025 2:17 PM Status: F Source: [facility] Order Comment: cc Dr Daniel TYPE CODE TESTS RESULT OUT OF RANGE REFERENCE UNITS LAB GLU(LOINC) Glucose Level 82 Low 83-110 mg/dL LAB NA(LOINC) Sodium Level 135 Low 136-145 mmol/L LAB K(LOINC) Potassium Level 4.7 3.5-5.1 mmol/L LAB CL(LOINC) Chloride 101 98-107 mmol/L LAB CO2(LOINC) CO2 32 High 23-31 mmol/L LAB EBAL(LOINC) Electrolyte Balance 2.0 Low 4.0-15.0 mEq/L LAB BUN(LOINC) BUN 13 7-18 mg/dL LAB CRE(LOINC) Creatinine Lvl (s) 1.01 High 0.51-0.95 mg/dL LAB BC(LOINC) BUN/Creatinine Ratio 13 7-27 ratio LAB CA(LOINC) Calcium Lvl 8.0 Low 8.4-10.2 mg/dL Performed By: #### GFR, BMP #### [address] [address] .GFR Collected: 04/02/2025 2:17 PM Status: F Source: [facility] TYPE CODE TESTS RESULT OUT OF RANGE REFERENCE UNITS LAB eGFR(LOINC) Estimated Glomerular Filtration Rate 59 ml/min/1. 73sqm Result Comment: Stages of Chronic Kidney Disease [...] calculate the eGFR results. Performed By: #### GFR, BMP #### [address] [address] K Collected: 03/12/2025 12:36 PM Status: F Source: [facility] TYPE CODE TESTS RESULT OUT OF RANGE REFERENCE UNITS LAB K(LOINC) Potassium Level 3.8 3.5-5.1 mmol/L Performed By: #### K #### [address] [place], [place] [address] XR FINGER THUMB 3 VIEWS LEFT Observed: 11/24/2024 2:46 PM Status: F Source: [facility] ORIGINAL EXAMINATION: THREE XRAY VIEWS OF THE [...] Date: 11/24/2024 3:30:21 PM Ordering Provider: WILBUR Small Observed: 11/02/2024 12:40 PM Status: COMPLETED Source: [facility] Faxed office note to [facility] 36 Observed: 11/01/2024 5:02 PM Status: COMPLETED Source: [facility] Phone call to patient 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 She [...] daughter would like to establish with a cath laboratory technician in [place]. Patient is monitoring her BP at home, and will call her daughter, ( who is at work now) if BP drops. She will contactthe oncology rep specialist to see if she can arrange Cardiology to see her tomorrow while at the infusion center. She will keep us updated. 36 Observed: 11/01/2024 3:44 PM Status: COMPLETED Source: [facility] Daughter called back she spo ke to oncologist and oncologist is more comfortable if we deal with this. 36 Observed: 11/01/2024 1:17 PM Status: COMPLETED Source: [facility] I spoke with daughter pt hav ing increase BOWMAN/ up 7 #s/b/l lower extremity edema after having 2 chemo treatments. Daughter states chemo staff said to call cath laboratory technician. She is not sure if oncologist or his office is aware. I asked her to check with them first regarding the symptoms she is having. The care will be directed by them. She will call back after she makes sure the oncologist is aware. 36 Observed: 11/01/2024 11:13 AM Status: COMPLETED Source: [facility] Daughter calling pt is new t o chemo having second treatment today. She has gained 7# since yesterday. Chemo staff wanted pt to call cath laboratory technician pt has edema in ankles. 36 Observed: 10/27/2024 2:17 PM Status: COMPLETED Source: [facility] Reviewed clinisync and confi rmed that patient ws able to establish with [facility] on 10/26/24. Beginning treatment 10/31/24. 36 Observed: 10/26/2024 2:52 PM Status: COMPLETED Source: [facility] Pt's Daughter, Diaz requsoraida ting POC device for he Mother. Explains her Mother has multiple Dr's appointments. Just today, her mother used 3 tanks. While working on TE, had contacted Pt's Daughter for more information , Diaz explained, She just talked to [employer] and decided to stick with tanks. PROGRESS NOTE Observed: 10/26/2024 10:20 AM Status: COMPLETED Source: [facility] . ENDOCRINOLOGY [address] [facility] [address] Dept: [phone] Dept Visit type: New patient Reason for [...] capsule by mouth daily., Disp: , Rfl: Homer-3 Fatty Acids (OMEGA 3 500 PO), Take [...] Wt 167 lb (75.8 kg) BMI 29.58 kg/m? Physical Exam Vitals reviewed. Constitutional: General: She [...] day of the visit. Joselyn Tucker MD OFFICE VISIT Observed: 10/26/2024 10:20 AM Status: COMPLETED Source: [facility] [id number] Karina Fernando [birth year] F Date Provider Department Center 10/26/2024 JOSELYN LR [facility] None Family History Problem Relation Age of Onset Cancer Mother Cancer Father No Known Problems Sister No Known Problems Brother Heart disease Brother Family Status - Relation Status Age at Mother Father Sister Alive Brother Alive Brother Alive Level of Service:[address]256 [place] OFFICE/OUTPATIENT NEW HIGH MDM 60 MINUTES Reason for Visit and Comments: New Patient [542] Thyroid Problem [110] - Thyroid nodule 36 Observed: 10/24/2024 11:26 AM Status: COMPLETED Source: [facility] Case reviewed - advanced sma ll cell lung cancer *The patient's OARRS report was obtained and reviewed.* 36 Observed: 10/24/2024 11:19 AM Status: COMPLETED Source: [facility] Per Dr. Fortune, pt needs a prescription sent for percocet 5/325mg, 1 tab Q6 hours PRN. 36 Observed: 10/24/2024 10:49 AM Status: COMPLETED Source: [facility] Received call from Alee Assistant Technician at [facility] [place]. Per Alee, they are aware patient now has oncology appt in [place], but they are tryoing to have her seen at [place] sooner. Right faxed MRI brain and PET reports to providers at [place] in case she returns to them for oncology care. Also requested images be pushed to provider. PROGRESS NOTE Observed: 10/24/2024 10:43 AM Status: COMPLETED Source: [facility] OARRS reviewed 36 Observed: 10/24/2024 9:54 AM Status: COMPLETED Source: [facility] Dr. Fortune discussed patien t with Dr. Worrell. Expedited referral arranged, pt is scheduled to see Dr. Jerry on Wednesday10/27/24 at 0800. Pt and daughter are aware of appointment. PROGRESS NOTE Observed: 10/24/2024 9:30 AM Status: COMPLETED Source: [facility] [address] [place] [address] [address] [facility] [address] Dept: [phone] Dept Loc: [phone] Patient was identified and seen today via Telehealth by agreement and consent. I used the following Telehealth technology: Audio capability only. Total length of call 16 minutes. The patient was offered and advised video for a more comprehensive evaluation, but the patient declined or was unable to use video. Patient location: [place] Patient Location: Home. This patient encounter is [...] stated that they are currently in the [facility]. If the patient is a minor, [...] etiology. Per note, pt had presented to [place] ED in August 2023 for dyspnea. CTA [...] consistent with malignancy. Patient was hospitalized at [facility] on 10/05/24 for shortness of breath, then transferred to [facility] for ongoing care. An US guided [...] follow with her oncologist Dr. Chance in [place]. MRI brain on 10/17/24 was normal. PET [...] patient also completed a thyroid biopsy at [place] and pathology is still pending/unavailable. Pt is a former smoker. [...] nebulization every 6 hours., Disp: , Rfl: levoFLOXacin (Levaquin) 750 MG tablet, Take 1 tablet (750 mg) by mouth daily for 7 days., Disp: 7 tablet, Rfl: 0 loratadine (Claritin) 5 MG chewable tablet, Chew 5 mg daily., Disp: , Rfl: Melatonin 2.5 MG chewable tablet, Chew Daily as needed., Disp: , Rfl: Multiple Vitamin (multivitamin) capsule, Take 1 capsule by mouth daily., Disp: , Rfl: Homer-3 Fatty Acids (OMEGA 3 500 PO), Take [...] a poorly defined mass within the left pulmonary hilum extending into the central aspect of the [...] approximately 1.5 cm in diameter on the low-dose CT images. Asymmetric increased FDG accumulation within [...] malignancy. There is a second FDG avid mass within the left suprahilar region which extends into the aorticopulmonary window, also consistent with malignancy. Intense FDG uptake within the right atrium is highly suspicious for a right atrial metastasis. Correlation with echocardiogram is recommended. Intense FDG accumulation within the masses within the right hepatic lobe and left adrenal gland are consistent with hepatic and adrenal metastases. Small focus [...] the pituitary gland. No suprasellar mass. Normal position of the cerebellar tonsils. Vessels: The major intracranial flow voids are preserved. Extracranial structures: Normal orbits. No extracranial soft tissue abnormalities. Sinuses/mastoids: Clear Bones: No pathologic marrow infiltration. IMPRESSION: Normal MRI of the brain. Pathology 10/09/24 Final Diagnosis LUNG, RIGHT LOWER LOBE, BIOPSY: - LUNG PARENCHYMA WITH HYALINIZED/ISCHEMIC CHANGE. - NEGATIVE FOR MALIGNANCY IN SUBMITTED TISSUE. Please see associated cytology specimen ([id number]). Cytology 10/09/24 Final Diagnosis A - Mediastinal [...] Wall thickness is mildly increased. Systolic function is normal. The estimated ejection fraction is 60-65%. [...] Wall thickness is mildly increased. Systolic function is normal. The estimated ejection fraction is 60-65%. Wall motion is normal; there are no regional wall motion abnormalities. The wall mass is 129 g. The wall mass index is 71 g/m?. Normal diastolic function. Ventricular septum: Thickness is mildly increased. Septal motion is dyssynergic. Left atrium: The atrium is normal in size. The volume index by biplane method is 11 ml/m?. Right ventricle: The cavity size is normal. [...] right atrial pressure is 3 mm Hg. Mitral valve: The pressure half-time is 66 ms. The peak E/A ratio is 0.59. The valve area (LVOT continuity) is 2.4 cm?. Doppler: There is no evidence for stenosis. There is no significant regurgitation. The mean diastolic gradient is 4 mm Hg. The valve area by pressure half-time is 3.3 cm?. Aortic valve: The valve is trileaflet. The peak systolic velocity is 1.5 m/sec. The systolic velocity-time integral is 22.1 cm. The mean systolic gradient is 5 mm Hg. The LVOT to aortic valve VTI ratio is 0.79. The valve area by VTI is 2.5 cm?. The valve area by peak velocity is 2.5 cm?. Doppler: There is no stenosis. There is [...] Respirophasic diameter changes are in the normal range (> 50%). Pericardium: A small pericardial effusion is identified. Doppler: There is moderate RA collapse for less than 50% of the cardiac cycle. Atrial [...] the proposed treatment or procedure have been discussed. The risks and benefits of the proposed treatment [...] This note may have been dictated using Law[employer] Practice Edition 2.6 and/or Her[employer] Voice Recognition Feature. The document was proofread, however unrecognized voice recognition folding rules printing machine operator errors may be present. PROGRESS NOTE Observed: 10/20/2024 2:00 PM Status: COMPLETED [facility] This patient has been referr ed to the oncology team. The staging PET scan should be addressed by the multidisciplinary team. Giving him the diagnosis and extent of disease, surgical resection is not indicated. 36 Observed: 10/19/2024 12:42 PM Status: COMPLETED Source: [facility] [employer] [facility] Dr. Lacho Tillman placed the recommended referral to [facility] medical oncology. Navigator spoke directly with human resources operations coordinator and medical oncology provider office and stressed urgency of appointment follow-up. community service officer coordinator and medical oncology discussed directly with oncologist at [facility]. They are unable to offer Karina an appointment sooner than previously scheduled with her [place] oncology team. Navigator apologized to family and recommended they keep previously scheduled [place] oncology appointment. Patient will see Dr. Dunham 11/01/24 per daughter. Records have been sent to [place] and PET and MRI will also be sent when reports are final. Family has navigator contact info and will call if they need assistance. 36 Observed: 10/18/2024 2:23 PM Status: COMPLETED Source: [employer] [facility] Pt daughter notified 36 Observed: 10/18/2024 1:23 PM Status: COMP LETED Source: [facility] [employer] [facility] Script sent 36 Observed: 10/18/2024 11:09 AM Status: COMPLETED Source: [facility] [employer] [facility] Please place referral for me dical oncology to [facility]. Navigator spoke with human resources operations coordinator and medical oncology office. She will discuss with oncology providers tomorrow morning to stress the urgency of appointment and attempt to expedite appointment. If unable to get patient in sooner than [place], navigator will advise patient to keep previously scheduled oncology follow-up. Daughter notified. 36 Observed: 10/18/2024 8:33 AM Status: COMPLETED Source: [facility] Navigator received callback from patient's daughter Diaz. Patient's daughter reports that since we are able to expedite MRI and PET scan, oncology appointment has been moved up to 10/31/2024, but this is just tentative appointment as her oncology provider in [place] is out of town and may not be back until 11/06/2024. Daughter would like Dr. Lacho Tillman to review and is willing to transfer care for oncology to [facility] if pulmonary provider feels sooner oncology appointment for small cell is needed. 36 Observed: 10/18/2024 8:07 AM Status: COMPLETED Source: [facility] Pt daughter called and state s that pt is claustrophobic. Dr. Fortune ordered a PET scan which is scheduled on 10/20/24. She is requesting something to help with anxiety prior to scan. She states what she was given for MRI brain worked great. Pharmacy confirmed. Please advise. Previous prescription was Xanax 0.5 mg tablet. 36 Observed: 10/17/2024 2:10 PM Status: COMPLETED Source: [facility] Navigator contacted patient' s daughter by phone. They would like first available PET scan at any location. She is currently scheduled 10/30/24. Moved up PET scan appointment to Faxed records including path report, thoracentesis report, thoracic conference recommendations, CTS and pulmonary and cardiology consults to patient's regular oncologist, Dr. Dunham and general dentist Rhiannon Georges in [place]. Patient has medical oncology appointment 11/06/24 but will try to move appointment sooner after PET scan. Navigator will send PET and MRI reports to providers once final . PROGRESS NOTE Observed: 10/17/2024 11:30 AM Status: COMPLETED Source: [facility], Pulmonary Critical Car [facility] [address] [place] [id number] Pulmonary Patient Visit 10/17/2024 Referring Physician: TU HECTOR DO Reason for Referral: SOB 10/03/24 History of Present Illness Karina Fernando is a 73 y.o. F with history of recurrent sinus infections, COPD on symbicort/albuterol, HTN who presented for a left hilar mass. Stated that in May she began having shortness of breath which worsened until she went to the ER in [place] in August. Found on CT with a left hilar mass, left upper lobe pleural-based mass, and moderate pericardial effusion. Evaluated by oncology and recommended for PET/CT, MRI brain, and biopsy. Established with pulmonology and had been planned for EBUS in [place] but canceled after TTE demonstrated a right [...] Previously normal 10/17/24 Patient was hospitalized in [place] ER for worsening pain and shortness of breath, unchanged. Transferred to [facility]. S/p bronchoscopy 10/09/[address] Mejia. [...] Dose Status acetaminophen (Tylenol) 325 MG tablet [id number] Take 2 tablets (650 mg) by mouth every 6 hours as needed for mild pain (1-3) or fever (For temp greater than 100.4 F (38 C)) for up to 10 days. Patient not taking: Reported on 10/09/2024 Emile Horne DO 10/16/24 2359 albuterol (Ventolin HFA) 108 (90 Base) MCG/ACT inhaler [id number] Yes Inhale 2 puffs every 4 hours as needed for wheezing or shortness of breath. Rachel Johnson DO Active ALPRAZolam (Xanax) 0.5 MG tablet [id number] Take 1 tablet (0.5 mg) by mouth 1 time for 1 dose. Take 30 minutes prior to MRI Lisadnra Aldridge, NEGIN - PAINTER [employer]ARD 10/10/24 2359 Discontinued 10/17/24 1119 budesonide-formoterol (Symbicort) 80-4.5 MCG/ACT inhaler [id number] Inhale 2 puffs 2 times daily. Rachel Johnson DO Active busPIRone (Buspar) 10 MG tablet [id number] Yes Take 10 mg by mouth 3 times daily as needed. Historical ProviderMD Active cholecalciferol (Vitamin D-3) 25 MCG (1000 UT) capsule [id number] Yes Take 1,000 Units by mouth daily. Historical Provider, Active ipratropium-albuterol (Duo-Neb) 0.5-2.5 mg/3 mL nebulizer solution [id number] Yes Take 3 mL by nebulization every 6 hours. Historical Provider, Active loratadine (Claritin) 5 MG chewable tablet [id number] Yes Chew 5 mg daily. Historical Provider, Active Melatonin 2.5 MG chewable tablet [id number] Yes Chew Daily as needed. Historical ProviderMD Active Multiple Vitamin (multivitamin) capsule [id number] Yes Take 1 capsule by mouth daily. Historical Provider, Active Homer-3 Fatty Acids (OMEGA 3 500 PO) [id number] Yes Take by mouth daily. Historical Provider, Active oxyCODONE-acetaminophen (Percocet) 7.5-325 MG tablet [id number] Take 1 tablet by mouth every 6 hours as needed for moderate pain (4-6) for up to 5 days. Emile Horne, DO 10/11/24 2359 traZODone (Desyrel) 100 MG tablet [id number] Yes Take 100 mg by mouth Nightly. Historical Provider, Active valACYclovir (Valtrex) 500 MG tablet [id number] Yes Take by mouth daily. Historical Provider, Active Vitamin E 268 MG (400 UNIT) capsule [id number] Yes Take by mouth daily. Historical Provider, [...] Adult Pulse: 81 Resp: 18 Temp: 36.4 ?C (97.5 ?F) TempSrc: Temporal SpO2: 94% Weight: 165 lb [...] Sputum culture with stenotrophomonas. Fungal stain/culture, AFB stain/culture negative/NGTD. Results reviewed with patient and family. -Reviewed at thoracic tumor board this morning. Completed MRI brain this morning, results pending. Pending PET/CT. Will need referral to oncology, patient prefers to follow-up with Dr. Chance. Will forward results and reports to his office, discussed with lung cancer coordinator. -Prescribed a 7-day course of Levaquin for stenotrophomonas. -Completed biopsy of thyroid nodules, results pending. -Patient prefers to continue with Symbicort, refilled. Continue with albuterol as needed. Follow up: Patient will follow-up with her general dentist and oncologist in [place] Please seek immediate medical attention for any worsening or worrying new symptoms. Patient education, benefits, risks, and precautions provided. Management plan was discussed in detail and in agreement. All questions or concerns answered to satisfaction and understood. Rachel Johnson DO 12:27 PM 10/17/24 Pulmonary and Critical Care Medicine 37 Observed: 10/17/2024 11:30 AM Status: COMPLETED Source: [facility] YOUR APPOINTMENT TODAY WAS [facility] LUNG NODULE CLINIC, COPD CLINIC, PULMONARY AND SLEEP MEDICINE OFFICE. PLEASE CALL OUR OFFICE AT [phone] IF YOU HAVE NOT RECEIVED YOUR TEST [...] to make improvements. COVID-19 VACCINATION INFORMATION: PH. [phone] [employer]ORG/CORONAVIRUS/VACCINE [facility] Central Scheduling [phone] [facility] Sleep Scheduling [phone] OFFICE VISIT Observed: 10/17/2024 11:30 AM Status: COMPLETED Source: [facility] [id number] Karina Fernando 11[birth year]18 Date Provider Department Center 10/17/2024 [id number], C*SHMG ACH PUL None Family History Problem Relation Age of Onset Cancer Mother Cancer Father No Known Problems Sister No Known Problems Brother Heart disease Brother Family Status - Relation Status Age at Mother Father Sister Alive Brother Alive Brother Alive Level of Service:97975 [place] OFFICE/OUTPATIENT ESTABLISHED MOD MDM 30 MIN Reason for Visit and Comments: Follow-up [[id number]] PROGRESS NOTE Observed: 10/17/2024 9:13 AM Status: COMPLETED Source: [facility] THORACIC ONCOLOGY AND LUNG N ODULE TUMOR BOARD RECOMMENDATIONS Consensus Recommendation Summary Privileged [...] Dr. Evita Watson to do recommendations for maria, CTC: SK MR#/Epic [id number] Oncologist: Dr. Mauri Chance ([place]) CTAP: /Age [birth year] 73 yo Rad Oncologist MRI: 10/17/24 Gender Female Shuttle Car Operator: Dr. Lacho Tillman/ [facility] PET: 10/30/24 Smoking History: ? Former 40 pk yr Quit 05/2024 PCP: Dr. Tu Hector PFT: 09/25/24 @ [facility] ?Prospective []Retrospective Social Service Coordinator: Dr. Luis PATH: EBUS/TBBX 10/09/24; US Thora 10/06/24; Thyroid bx- [place] 10/10/24 (path pending) Clinical Stage: unable to stage : @ least N2 dz Path Stage: T N M Barium Swallow 10/06/24 Brief Summary Known COPD was seen in ED at [place] for eval of worsening SOB, Left shoulder, back, and lung pain, and dizziness. CT in [place] noted a left hilar mass, LEYLA mass and adenopathy, R atrial mass, pericardial effusion and thyroid nodules. Evaluated by [place] med onc and recommended to have PET, MRI and biopsy. Sent to [facility] CTS and arranged same day urgent appts with pulmonary and cardiology. Sent for EBUS and now presents to review imaging, path, staging and plan of care. * Also completed thyroid bx @ [place] and path results are pending Recommendations: 1. [...] treatment plan may differ from this recommendation. [id number] Observed: 10/12/2024 9:57 AM Status: COMPLETED Source: [facility] [employer] [facility] Patient: Karina Fernando Procedure Summary Date: 10/09/24 Room / Location: [facility] G[facility]ology Anesthesia Start: 1439 Anesthesia Stop: [...] discharged once all PACU criteria has been met. ANESTHESIA NOTE Observed: 10/12/2024 9:56 AM Status: COMPLETED Source: [facility] Patient: Karina Fernando Procedure Summary Date: 10/09/24 Room / Location: [place] [address] / [facility] Gastroenterology Anesthesia Start: 1439 Anesthesia Stop: [...] Allowed opportunity for questions and acknowledgement of understanding. 36 Observed: 10/11/2024 11:12 AM Status: COMPLETED Source: [employer] [facility] Pt daughter notified. Confir med with pharmacy that prescription is ready for pickup. 36 Observed: 10/10/2024 3:10 PM Status: COMPLETED Source: [employer] sent for 1 time dose prior to MRI- please notify patient 36 Observed: 10/10/2024 2:41 PM Status: COMPLETED Source: [employer] [facility] Pt called and states she is claustrophobic. Dr. Fortune ordered an MRI brain which is scheduled on 10/17/24. Pt is requesting something to help with anxiety prior to scan. Pharmacy confirmed. Please advise. FUNGAL CULTURE Observed: 10/09/2024 3:34 PM Status: F Source: [employer] [facility] FUNGAL CULTURE Reference No fungus isolated after 21 days [ S = SUSCEPTIBLE R = RESISTANT I = INTERMEDIATE S-DD = Susceptible-dose dependent NS = Non-susceptible NO = No Interpretation ] Performed By: #### [id number] # ### Hazmat Cdl Driver: GUERDA WEBBER ([id number]) [facility] ([facility]) [address] [place] [address] RESPIRATORY CULTURE AND STAIN Observed: 10/09/2024 3:34 PM Status: F Source: [employer] [facility] RESPIRATORY CULTURE Referenc e Rare respiratory deng present. STENOTROPHOMONAS MALTOPHILIA Rare [...] = Non-susceptible NO = No Interpretation ] Performed By: #### [id number], L [id number] #### Hazmat Cdl Driver: GUERDA WEBBER ([id number]) [facility]) [address] [place] [address] FUNGAL STAIN Observed: 10/09/2024 3:34 PM Status: F Source: [facility] FUNGAL STAIN Reference No fungal elements seen ORDER COMMENTS: Reference Range: No fungal elements seen [ S = SUSCEPTIBLE R = RESISTANT I = INTERMEDIATE S-DD = Susceptible-dose dependent NS = Non-susceptible NO = No Interpretation ] Performed By: #### [id number], L [id number] #### Hazmat Cdl Driver: GUERDA WEBBER ([id number]) [facility] ([facility]) [address] [place] [address] AFB CULTURE Observed: 10/09/2024 3:34 PM Status: F Source: [facility] AFB CULTURE Reference No growth at 6 weeks AFB STAIN Reference No acid fast bacilli seen by fluorescent microscopy ORDER COMMENTS: Stain Reference Range: No acid fast bacilli seen by fluorescent microscopy. [ S = SUSCEPTIBLE R = RESISTANT I = INTERMEDIATE S-DD = Susceptible-dose dependent NS = Non-susceptible NO = No Interpretation ] Performed By: #### [id number] ## ## Hazmat Cdl Driver: GUERDA WEBBER ([id number]) [facility]) [address] [place] [address] FINE NEEDLE ASPIRATION Collected: 10/09/2024 3:03 PM Status: F Source: [facility] TYPE CODE TESTS RESULT OUT OF RANGE REFERENCE UNITS PATHOLOGY 1499 LAB AP CASE REPORT Result Comment: Fine Needle Aspiration, Cytology Case: [id number] Authorizing Provider: Cain Mejia MD Collected: 10/09/2024 1503 [facility] Endoscopy Received: 10/09/2024 1601 Pathologist: Josselin Garcia MD Specimens: A) - Mediastinal Lymph Node Station 11R, 11R B) - Mediastinal Lymph Node Station 4R, 4R C) - Mediastinal Lymph Node Station 4L, 4L D) - Mediastinal Lymph Node Station 7, 7 E) - Mediastinal Lymph Node Station 11L, 11L F) - Bronchial, Right Lower Lobe G) - Bronchoalveolar, Left Upper Lobe PATHOLOGY 34 LAB AP REPORT FINAL DIAGNOSIS NARRATIVE Result Comment: A - Mediasti nal Lymph Node Station 11R - Transbronchial Fine [...] SIGNIFICANT MICROORGANISMS OR VIRAL CELLULAR CHANGES IDENTIFIED. OLOGY 35 LAB AP DIAGNOSIS COMMENT Result Comment: Please see p pepe's concurrent surgical pathology specimen ([id number]) for additional information. ADDITIONAL SURGICAL CASES EXIST FOR THIS SAME DATE OF SERVICE PATHOLOGY [id number] LAB AP CYTO INTRAOPERATIVE CONSULTATION Result Comment: Part A: Pass 1 - rare lymphocytes present. Pass 2 - lymphocytes present. Part B: Pass 1 - lymphocytes present. Part C: Pass 1 - blood. Part D: Pass 1 - adequate. Part E: Pass 1 - adequate. Onsite interpretation by Dr. Garcia. PATHOLOGY [id number] LAB AP GROSS DESCRIPTION Result Comment: A - Mediasti nal Lymph Node Station 11R: 30 mL clear fluid received in CytoLyt. 2 fixed slide(s), 2 air-dried slide(s) Materials Prepared: 1 Cell Block(s) B - Mediastinal Lymph Node Station 4R: 25 mL clear fluid received in CytoLyt. 1 fixed slide(s), 1 air-dried slide(s) Materials Prepared: 1 Cell Block(s) C - Mediastinal Lymph Node Station 4L: 25 mL pale pink fluid received in CytoLyt. 1 fixed slide(s), 1 air-dried slide(s) Materials Prepared: 1 Cell Block(s) D - Mediastinal Lymph Node Station 7: 30 mL pale pink fluid received in CytoLyt. 1 fixed slide(s), 1 air-dried slide(s) Materials Prepared: SBX 1 Cell Block(s) E - Mediastinal Lymph Node Station 11L: 25 mL pale pink fluid received in CytoLyt. 1 fixed slide(s), 1 air-dried slide(s) Materials Prepared: SBX 1 Cell Block(s) F - Bronchial, Right Lower Lobe: 30 mL clear fluid received with brush in CytoLyt. Materials Prepared: ThinPrep G - Bronchoalveolar, Left Upper Lobe: 40 mL bloody red fluid received fresh. Materials Prepared: ThinPrep and 1 Cell Block(s) PATHOLOGY 769 LAB AP ASR DISCLAIMER Result Comment: Disclaimer: The following statement applies to all immunohistochemistry, in situ hybridization, molecular studies, and immunofluorescence testing, if performed on this case. The use of one or more reagents in the above tests is regulated as an analyte specific reagent (ASR). These tests were developed and their performance characteristics determined by the clinical laboratories of [facility]. They have not been cleared by the US Food and Drug Administration (FDA). The FDA has determined that such clearance or approval is not necessary. All immunostains were performed on paraffin embedded tissue. Appropriate positive and negative controls (where applicable) were run in parallel with the patient's specimen; these controls showed expected staining pattern, with acceptable intensity of staining. Immunohistochemical assays have not been validated on decalcified tissues. Results should be interpreted with caution given the raised possibility of false negativity on decalcified specimens. PATHOLOGY [id number] AP CASE SCREENING LOCATION [facility], [address] [facility] [address]; CLIA: [id number]; Joint Commission: [id number]; CAP: [id number] PATHOLOGY 438801 AP CASE PATHOLOGIST INTERP [facility]ATION [facility], [address] [facility] [address]; CLIA: [id number]; Joint Commission: [id number]; CAP: [phone] PATHOLOGY EMBDOC OUTGOING CLINICAL RESULTS EMBEDDED DOCUMENT Performed By: #### [id number] ## ## Hazmat Cdl Driver: JOSSELIN GARCIA ([id number]) [facility] ([facility] [address] TISSUE EXAM Collected: 2:55 PM Status: F Source: [facility] TYPE CODE TESTS RESULT OUT OF RANGE REFERENCE UNITS PATHOLOGY 1499 LAB AP CASE REPORT Result Comment: Surgical Pat hology Case: [id number] Authorizing Provider: Cain Mejia MD Collected: 10/09/2024 5365 [facility] Endoscopy Received: 10/09/2024 3661 Pathologist: Richard Mckeon MD Specimen: Lung, Right Lower Lobe, RLL PATHOLOGY 34 LAB AP REPORT FINAL DIAGNOSIS NARRATIVE Result Comment: LUNG, RIGHT LOWER LOBE, BIOPSY: - LUNG PARENCHYMA WITH HYALINIZED/ISCHEMIC CHANGE. - NEGATIVE FOR MALIGNANCY IN SUBMITTED TISSUE. Please see associated cytology specimen ([id number]). OLOGY 35 LAB AP DIAGNOSIS COMMENT Immunohistochem istry, with controls: TTF-1 and pankeratin highlight epithelium. Synaptophysin and INSM1 are negative. Ki-67 is positive, low. PATHOLOGY 29 LAB AP CLINICAL INFORMATION Hilar mass, Adenopathy, Lung mass PATHOLOGY [id number] LAB AP HISTO GROSS DESCRIPTION Received in formalin labeled right lower lobe are two muhammad-pink tissue fragments that measure 0.2 and 0.3 cm. The specimen is entirely submitted in a single cassette. PATHOLOGY 769 LAB AP ASR DISCLAIMER Result Comment: Disclaimer: The following statement applies to all immunohistochemistry, in situ hybridization, molecular studies, and immunofluorescence testing, if performed on this case. The use of one or more reagents in the above tests is regulated as an analyte specific reagent (ASR). These tests were developed and their performance characteristics determined by the clinical laboratories of [facility]. They have not been cleared by the US Food and Drug Administration (FDA). The FDA has determined that such clearance or approval is not necessary. All immunostains were performed on paraffin embedded tissue. Appropriate positive and negative controls (where applicable) were run in parallel with the patient's specimen; these controls showed expected staining pattern, with acceptable intensity of staining. Immunohistochemical assays have not been validated on decalcified tissues. Results should be interpreted with caution given the raised possibility of false negativity on decalcified specimens. PATHOLOGY 859321 AP CASE PATHOLOGIST INTERP LOCATION [facility], [address] [place] [address], CLIA: [id number]; Joint Commission: [id number]; CAP: [id number] PATHOLOGY EMBDOC OUTGOING CLINICAL RESULTS EMBEDDED DOCUMENT Performed By: #### [id number] # ### Hazmat Cdl Driver: GUERDA WEBBER ([id number]) [facility] ([facility]) [address] [place] [address] PROCEDURE NOTE Observed: 10/09/2024 2:51 PM Status: COMPLETED Source: [facility] Airway Date/Time: 10/09/2024 2:43 PM Urgency: scheduled Airway not difficult General Information and Staff Patient location during procedure: Procedural Resident/UTILITY WORKER ROLLER SHOP: Mello Schneider CRNA Performed: UTILITY WORKER ROLLER SHOP Indications and Patient Condition Indications for airway [...] attempts: none Number of other approaches attempted: 0 OP NOTE Observed: 10/09/2024 2:23 PM Status: COMPLETED Source: [facility] Name: Karina Fernando Procedure Date: 10/09/2024 2:23 PM Gender: Female Date of : 1950 Age: 73 Admit Type: Outpatient Note Status: Finalized Attending MD: Cain Mejia MD, [id number] Procedure: Bronchoscopy Indications: Left hilar mass Findings: [...] and in the left hilum using a [employer] Expect 25 gauge needle and sent for [...] loss: Minimal Procedure Code(s): --- Professional --- 41434, Bronchoscopy, rigid or flexible, including fluoroscopic guidance, when performed; with transbronchial needle aspiration biopsy(s), trachea, main stem and/or lobar bronchus(i) 75729, 59, Bronchoscopy, rigid or flexible, including fluoroscopic guidance, when performed; with bronchial or endobronchial biopsy(s), single or multiple sites 61690, Bronchoscopy, rigid or flexible, including fluoroscopic guidance, when performed; with bronchial alveolar lavage 45103, Bronchoscopy, rigid or flexible, including fluoroscopic guidance, when performed; with brushing or protected brushings 82101, Bronchoscopy, rigid or flexible, including fluoroscopic guidance, when performed; with transendoscopic endobronchial ultrasound (EBUS) during bronchoscopic diagnostic or therapeutic intervention(s) for peripheral lesion(s) (List separately in addition to code for primary procedure[s]) Diagnosis Code(s): --- Professional --- R91.8, Other nonspecific abnormal finding of lung field J98.4, Other disorders of lung J98.09, Other diseases of bronchus, not elsewhere classified R04.2, Hemoptysis CPT copyright 2021 [employer]. All rights reserved. The codes documented in this report are preliminary and upon interior block wirer review may be revised to meet current compliance requirements. Attending Participation: I personally performed the entire procedure. Cain Mejia MD 10/09/2024 3:46:37 PM This report has been signed electronically. Number of Addenda: 0 Note Initiated On: 10/09/2024 2:23 PM HISTORY AND PHYSICAL NOTE Observed: 09/17 2:11 PM Status: COMPLETED Source: [employer] [facility] Chief Complaint: left hilar mass History of [...] lymph nodes, sampling/staging, sampling of hilar mass. THESIA NOTE Observed: 10/09/2024 1:37 PM Status: COMPLETED Source: [facility] Patient: Karina Fernando Procedure Information Date/Time: 10/09/24 1330 Procedure: ENDOBRONCHIAL ULTRASOUND WITH TRANSBRONCHIAL NEEDLE ASPIRATION. POSSIBLE ENDOBRONCHIAL BIOPSIES, NEEDLE ASPIRATION, AND BRUSHINGS. - Rad, path, total time: 90 min Location: [place] [address] [facility] Gastroenterology Providers: Cain Mejia MD Relevant [...] any previous visit. Equipment Requests: Additional Equipment Requests 36 Observed: 10/09/2024 9:01 AM Status: COMPLETED Source: [employer] [facility] Tarsoraidaa notified. 30 Observed: 10/06/2024 5:09 PM Status: COMPLETED [facility] Patient discharged Problem: Pain - Adult Goal: Verbalizes/displays adequate comfort level or baseline comfort level Outcome: CompletedProblem: Safety - Adult Goal: Free from fall injury Outcome: CompletedProblem: Discharge Planning Goal: Discharge to home or other facility with appropriate resources Outcome: CompletedProblem: Chronic Conditions and Co-morbidities Goal: Patient's chronic conditions and co-morbidity symptoms are monitored and maintained or improved Outcome: Completed US GUIDED THORACENTESIS Observed: 2024 3:55 PM Status: F Source: [facility] Patient Name: [facility]AR[facility]NANDO [facility] 1950 [id number] Exam Date/Time: 10/06/2024 08:32 Procedure: US GUIDED [...] Electronically Signed Date/Time: 10/06/2024 3:55 PM EDT PROGRESS NOTE Observed: 10/06/2024 3:30 PM Status: COMPLETED Source: [facility] RTHOMEO2[[id number]] Respiratory Therapy Home O2 Progress Note O2 [...] home Y/N = Y DME Notified Y HARGE SUMMARY Observed: 10/06/2024 3:09 PM Status: COMPLETED Source: [facility] Hospitalist Discharge Summar y Karina Fernando : 1950 Admit date: 10/05/2024 [...] and other work up. She presented to [place] ED - with worsening left shoulder, back [...] and was sent in for management to [facility]. Seen by pulm. Pleural effusion was [...] Your Medications These medications were sent to [facility] [address] [place] [address] Hours: Wednesday to Wednesday 10 am to 6 pm oxyCODONE-acetaminophen 7.5-325 MG tablet You can get these medications from any pharmacy You don't need a prescription for these medications acetaminophen 325 MG tablet Recommended Follow-up: Tu Hector DO 0 [facility] [phone] Follow up in 1 week(s) Complexity of Follow up: [] Moderate Complexity: follow up within 7-14 calendar days (34985) [x] Severe Complexity: follow up within 7 calendar days (14530) Follow up Testing, Pending results or Referrals at Transitional Care Visit: [x] yes [] no Instructions to MA: Please call patient on day after discharge (must document patient contacted within 2 business days of discharge). Follow up questions for MA: 1. Did you get medications filled and taking them as instructed from discharge? 2. Are you following your discharge instructions from your hospital stay? 3. Please confirm patient is scheduled for a follow up appointment within the above time frame. Signed: Emile Horne DO Division of Hospital Medicine Inpatient Medical Services[place] 10/06/2024, 3:09 PM PROGRESS NOTE Observed: 10/06/2024 3:06 PM Status: COMPLETED Source: [facility] Patient chart is reviewed. Edwin avelar. Full note to follow. [id number] Observed: 10/06/2024 12:55 PM Status: COMPLETED Source: [facility] Pt adm for tx/ eval of SOB- found to have pleural effusion. RA currently. US guided thoracentesis, XR chest and barium swallow completed. Spoke with pt and family, introduced self and roll. Pt plans to return home- no needs. RESS NOTE Observed: 10/06/2024 12:39 PM Status: COMPLETED [facility] Initial Evaluation Name/MRN: Karina Fernando ([id number]) Evaluation Date: 10/06/2024 Date of : 1950 Admission Date: 10/05/2024 8:10 PM Age: 73 y.o. Room[facility]Bed: [facility] A Discharge Recommendation: Home with Home health PT Assessment IMPRESSION: Karina is a 73 y.o. female with past medical history of COPD previous smoker, asthma, Hiatal hernia, Recent discovery of lung mass and thyroid nodules. 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 Pt reports mobility [...] Responsibilities: Independent Receives Help From: Family Active Passport Support Manager: Prior Level of Function IND with mobility without device Objective Lower Extremity Assessment AROM: WNL PROM: WNL Strength: WNL Sensation: WNL Balance: Not assessed this session Bed Mobility: Supine to sit: Independent Sit to supine: Independent Transfers Sit to stand: Independent Stand to sit: Independent Ambulation Pt ambulates 50ft with multiple turns without device with SBA. As pt becomes more fatigued MIXER TENDER provided due to increased lateral sway. Verbal [...] supervision is transferred to a [facility] Therapy Services Physical Therapist. Goals and/or treatment plan was established in collaboration with patient/family/other representatives. XR CHEST 2 VIEWS Observed: 10/06/2024 10:43 AM Status: F Source: [facility] Patient Name: KARINA FERNANDO : 1950 Exam [...] Electronically Signed Date/Time: 10/06/2024 10:43 AM EDT FL MODIFIED BARIUM WITH VIDE O AND SPEECH Observed: 10/06/2024 9:30 AM Status: F Source: [facility] Patient Name: KARINA FERNANDO : 1950 Exam [...] Electronically Signed Date/Time: 10/06/2024 9:30 AM EDT CONSULT Observed: 10/06/2024 8:59 AM Status: COMPLETED Source: [facility] Pulmonary Medicine [address] [place] [address] Patient - Karina Fernando - 1950 Date of Admission - 10/05/2024 8:10 PM Date of Evaluation - 10/06/2024 Room - [facility] A Hospital Day - 1 Consulting [...] She presented to the emergency department at [facility] with worsening left shoulder, back, lung pain and lightheadedness when standing. Reportedly, she had also been experiencing voice changes and difficulty swallowing both liquids and solids with some swelling since February 2024. She is also been experiencing worsening headache, sensation of vertigo, ringing in her left ear, sensation of falling to the left side. At the [place] emergency department, she underwent a chest x-ray which demonstrated a large left-sided pleural effusion and so was sent for management to the [facility]. When I examined her this morning, [...] for a previous hospital admission at the [facility] afebrile [address] chest [...] 25 mg, Oral, Daily ipratropium-albuterol, 3 mL, Nebulization, TID melatonin, 10 mg, Oral, Nightly mometasone-formoterol, 2 puff, Inhalation, BID sodium chloride 0.9%, 10 mL, IntraVENous, 2 times per day sodium chloride 0.9%, 5-40 mL, IntraVENous, q12h traZODone, 200 mg, Oral, Nightly PRN Mediations PRN medications: acetaminophen OR acetaminophen, albuterol, barium sulfate, barium sulfate, barium sulfate, busPIRone, HYDROmorphone, ipratropium-albuterol, naloxone, ondansetron ODT OR ondansetron, oxyCODONE OR oxyCODONE, oxyCODONE-acetaminophen, polyethylene glycol (PEG) 3350, sodium chloride, sodium chloride, sodium chloride 0.9%, sodium chloride 0.9% IV Drips/Infusions Home Medications Current Outpatient Medications Medication Instructions albuterol (Ventolin HFA) 108 (90 Base) MCG/ACT inhaler 2 puffs, Inhalation, Every 4 hours PRN budesonide-formoterol (Symbicort) 80-4.5 MCG/ACT inhaler 2 puffs, 2 times daily busPIRone (BUSPAR) 10 mg, 3 times daily PRN cholecalciferol (VITAMIN D-3) 1,000 Units, Daily hydroCHLOROthiazide (HYDRODIURIL) 25 mg, Daily loratadine (CLARITIN) 5 mg, Daily Melatonin 2.5 MG chewable tablet Daily PRN Multiple Vitamin (multivitamin) capsule 1 capsule, Daily Homer-3 Fatty Acids (OMEGA 3 500 PO) Daily oxyCODONE-acetaminophen (Percocet) 5-325 MG tablet No dose, route, or frequency recorded. traZODone (DESYREL) 100 mg, Nightly valACYclovir (Valtrex) 500 MG tablet Oral, Daily Vitamin E 268 MG (400 UNIT) capsule Daily Allergies Allergies Allergen Reactions Alendronate Muscle ache, Swelling / lump finding Cefaclor Hives Erythromycin Nausea And Vomiting Erythromycin Base Nausea Only Famciclovir Hives Gabapentin Unknown Morphine Nausea And Vomiting Penicillins Hives Tramadol Hives, Itching and Nausea And Vomiting Hydrochlorothiazide W-Triamterene Rash Review of Systems General Denies any fever or chills HEENT Denies any diplopia, tinnitus or vertigo Resp See HPI Cardiac Denies any chest pain, palpitations, claudication or edema GI Denies any melena, hematochezia, hematemesis or pyrosis Denies any frequency, urgency, hesitancy or incontinence Heme Denies bruising or bleeding easily Neuro Denies any focal motor or sensory deficits Psychiatric Denies anxiety, depression, suicidal ideation Skin Denies rashes, itching, open sores Vitals weight is 154 lb 14.4 oz (70.3 kg). Her temporal temperature is 36.8 ?C (98.3 ?F). Her blood pressure is 135/84 and her pulse is 93. Her respiration is 20 and oxygen saturation is 93%. Body mass index is 27.44 kg/m?. 24 Hour intake and output Intake/Output Summary (Last 24 hours) at 10/06/2024 0859 Last data filed at 10/06/2024 0100 Gross per 24 hour Intake 0 ml Output -- Net 0 ml Wt Readings from Last 3 Encounters: 10/05/24 154 lb 14.4 oz (70.3 kg) 10/03/24 163 lb (73.9 kg) 10/03/24 163 lb (73.9 kg) Physical Exam General appearance: Awake, alert, no acute distress. On No liters/min NC. HEENT: Normocephalic, atraumatic. Pupils equil and round, External ear normal, conjunctivae normal, negative for scleral icterus. No congestion. Neck: ROM normal, supple, trachea midline. No lymphadenopathy Cardiovascular: Regular rate and rhythm. Heart sounds normal. Negative for murmur, friction rub, or gallop. Pulmonary: Effort normal, no respiratory distress. Generally clear to auscultation, with exception of minimal breath sounds and presence of egophony in the Left lower lung field Abdomen: Soft, non distended, non tender, bowel sounds normal. No palpable masses. No hepatomegaly Musculoskeletal: ROM normal, Negative for swelling, tenderness or deformity. Skin: Warm, dry. Skin color, texture, turgor normal. Negative for rashes or lesions. Extremities: No clubbing, cyanosis, or extremity edema Neurological: No focal deficits. Alert and oriented x 3. Lymphatics: No cervical or axillary lymphadenopathy Psychiatric: Mood, behavior, thought content normal. Cooperative with exam. Labs CBC Results from last 7 days Lab Units 10/06/24 0439 WBC AUTO 10*3/uL 3.5* HEMOGLOBIN g/dL 11.0* HEMATOCRIT % 34.4* PLATELETS 10*3/uL 226 BMP: Results from last 7 days Lab Units 10/06/24 0439 SODIUM mmol/L 141 POTASSIUM mmol/L 3.3* CHLORIDE mmol/L 106 CO2 mmol/L 27 BUN mg/dL 8* CREATININE mg/dL 0.83 GLUCOSE mg/dL 92 CALCIUM mg/dL 9.0 ABG: LIVER PROFILE Results from last 7 days Lab Units 10/06/24 0439 ALK PHOS U/L 45 BILIRUBIN TOTAL mg/dL 0.3 PROTEIN TOTAL g/dL 6.2* ALT U/L 9 AST U/L 17 INR PTT No results found for: PTT Cultures None obtained Pulmonary function tests (PFT's) PFT (None done thus far) Sleep History None recorded Radiology All relevant/recent imaging was personally reviewed by me. Please see official radiology report for details. CXR Near complete opacification of the left hemithorax in part reflecting patient's known left perihilar mass with suspected postobstructive change involving the lingula and left lower lobe. Suspect small left pleural effusion. Moderate to large hiatal hernia. No pneumothorax. 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 Unclear from imaging which primary source the mass is from. Nonetheless, biopsy is tentatively planned for Wednesday, with Brain MRI and PET scan schedule in October for staging purposes. The mass appears to compromise her ability to fully swallow, but there is no evidence of airway infiltration of food as the dysphagia appears distal from her airway. The band-like pain that she described is likely MSK or mass-related. The mass is significantly compromising her left airway, cause atelectasis. She will likely require O2 at home with activity at least. Pleural Effusion - Left Sided Unfortunately, volume is too small for drainage. CXR this morning does indeed show near-white out but there is a significant amount of mass in the left side that may obscure the ability to visualize the pleural effusion. COPD Patient is prescribed Trelegy, but has deferred from taking it due to the thought that the pain is secondary to it. Was previously on Symbicort. Recommendations Effusion cannot be drained, will not pursue it further at this time. Can discharge with increased Percocet dose of 7.5 mg/325 mg for pain. Reviewed telephone encounter with Dr. Johnson: discharge on Symbicort as inhaler therapy. Recommend she attend her bronchoscopy on Wednesday and follow-up with pulmonary medicine clinic [place] to discharge after she undergoes home O2 evaluation. Scot Teresa DO Discussed with Dr. Biswas NURSING NOTE Observed: 10/06/2024 8:44 AM Status: COMPLETED Source: [facility] Patient arrived to radiology department (dept) for ultrasound (US) guided thoracentesis. Naedge Hardin PA-C present to speak with patient. [...] given via telephone to Fab Lawson RN. PROGRESS NOTE Observed: 10/06/2024 8:43 AM Status: COMPLETED Source: [facility] Speech-Language Pathology SPEECH LANGUAGE PATHOLOGY [facility] Modified Barium Swallow Study Patient Name: Karina Fernando Evaluation Date: 10/06/2024 Date of : 1950 Admission Date: 10/05/2024 8:10 PM Age: 73 y.o. Room/Bed: [facility] A IMPRESSION: The patient presents with [...] contrast enters the airway. No further skilled HEALTHCARE PROF indicated at this time. Please reconsult should [...] and other work up. She presented to [place] ED - with worsening left shoulder, back [...] and was sent in for management to [facility]. She has a history of hiatal [...] Unable to obtain labs and imaging from [place] - Was told she has a complete [...] Goal: To have some coffee Therapy Time HEALTHCARE PROF Individual Minutes Time In: 0840 Time Out: 0900 Minutes: 20 Charis Barron, CCC-HEALTHCARE PROF COMPREHENSIVE METABOLIC PANEL Collected: 10/06/2024 4 :39 AM Status: F Source: [facility] TYPE CODE TESTS RESULT OUT OF RANGE REFERENCE UNITS LAB [id number] SODIUM 141 136-145 mmol/L LAB [id number] POTASSIUM 3.3 Low 3.5-5.1 mmol/L Result Comment: Plasma potas sium values may be up to 0.5 mmol/L lower than serum values. LAB 6809439 CHLORIDE 106 98-107 mmol/L LAB [id number] CARBON DIOXIDE 27 23-31 mmol/L LAB [id number] ANION GAP (GOLD, CALCULATED) 8 3-13 mmol/L LAB [id number] UREA NITROGEN 8 Low 9-23 mg/dL LAB 9147176 CREATININE 0.83 0.57-1.11 mg/dL LAB 2033940 GLUCOSE 92 82-115 mg/dL LAB 4075396 CALCIUM 9.0 8.8-10.0 mg/dL LAB 3716341 AST (SGOT) 17 <34 U/L LAB 2015941 ALT 9 <30 U/L LAB 7216195 ALKALINE PHOSPHATASE 45 40-150 U/L LAB 2422780 ALBUMIN 3.0 Low 3.4-4.8 g/dL LAB 8121575 BILIRUBIN, TOTAL 0.3 <1.2 mg/dL LAB 5597528 TOTAL PROTEIN 6.2 Low 6.4-8.3 g/dL LAB 9764656 GLOMERULAR FILTRATION RATE ML/MIN/1.73 SQ M.PREDICTED 75.0 >60.0 mL/min/1. 73m*2 Result Comment: Calculation based on the Chronic Kidney Disease Epidemiology Collaboration (CKD-EPI) equation refit without adjustment for race Performed By: #### [id number], L AB17 #### Hazmat Cdl Driver: GUERDA WEBBER ([id number]) [facility] ([address] MAGNESIUM Collected: 4:39 AM Status: F Source: [facility] TYPE CODE TESTS RESULT OUT OF RANGE REFERENCE UNITS LAB [id number] MAGNESIUM 1.9 1.6-2.6 mg/dL Result Comment: ORDER COMMEN TS: Higher values can be expected in females during menses. Performed By: #### [id number], L AB17 #### Hazmat Cdl Driver: GUERDA WEBBER ([id number]) [facility] ([facility]) [address] [place] [address] CBC WITH AUTO DIFFERENTIAL Collected: 10/06/2024 4:39 AM Status: F Source: [facility] TYPE CODE TESTS RESULT OUT OF RANGE REFERENCE UNITS LAB [id number] WBC 3.5 Low 3.6-10.7 10*3/uL LAB 5403074 RBC 4.25 3.80-5.20 10*6/uL LAB 4146123 HEMOGLOBIN 11.0 Low 11.7-16.0 g/dL LAB 4583771 HEMATOCRIT 34.4 Low 35.0-47.0 % LAB 4110386 MCV 80.9 77.0-99.0 fL LAB 2688079 MCH 25.9 Low 26.0-34.0 pg LAB 1603875 MCHC 32.0 30.5-36.0 % LAB 8340244 RDW 18.8 High 11.5-15.0 % LAB 2354410 PLATELET COUNT 226 140-440 10*3/uL LAB 9161261 MPV 8.9 Low 9.0-12.7 fL LAB 254 NRBC 0.0 0.0-2.0 /100 WBCs LAB 0516984 NEUTROPHILS RELATIVE 61.9 38.0-82.0 % LAB 0628738 LYMPHOCYTES RELATIVE 20.2 15.0-45.0 % LAB 4036651 MONOCYTES RELATIVE 16.4 High 5.0-13.0 % LAB 5682182 EOSINOPHILS RELATIVE 0.6 0.0-6.0 % LAB 6776182 BASOPHILS RELATIVE 0.6 0.0-2.0 % LAB 3173476 IMMATURE GRANS % 0.3 0.0-2.0 % LAB 9935380 NEUTROPHILS ABSOLUTE 2.2 1.8-7.5 10*3/uL LAB 4549870 LYMPHOCYTES ABSOLUTE 0.7 Low 1.0-4.3 10*3/uL LAB 4908558 MONOCYTES ABSOLUTE 0.6 0.0-0.9 10*3/uL LAB 3786294 EOSINOPHILS ABSOLUTE 0.0 0.0-0.5 10*3/uL LAB 2889541 BASOPHILS ABSOLUTE 0.0 0.0-0.2 10*3/uL LAB 819606 IMMATURE GRANS ABSOLUTE 0.0 <0.1 10*3/uL Performed By: #### [id number] # ### Hazmat Cdl Driver: GUERDA WEBBER ([id number]) [facility] ([facility]) [address] [place] [address] 30 Observed: 10/06/2024 1:01 AM Status: COMPLETED Source: [facility] Problem: Pain - Adult Goal: Verbalizes/displays adequate comfort level or baseline comfort level Outcome: ProgressingProblem: Safety - Adult Goal: Free from fall injury Outcome: Progressing HISTORY AND PHYSICAL NOTE Observed: 09/17 9:39 PM Status: COMPLETED Source: [facility] Attending History and Physic al Admit Date: 10/05/2024 PCP: TU HECTOR DO [...] and other work up. She presented to [place] ED - with worsening left shoulder, back [...] and was sent in for management to [facility]. She has a history of hiatal [...] Unable to obtain labs and imaging from [place] - Was told she has a complete [...] capsule Take 1,000 Units by mouth daily. Rgauvyckljo-Yhesgsjle-Btiwdp (Trelegy Ellipta) 100-62.5-25 MCG/ACT aerosol powder Inhale [...] capsule Take 1 capsule by mouth daily. Homer-3 Fatty Acids (OMEGA 3 500 PO) Take [...] Patient Position: Sitting) Pulse 90 Temp 36.2 ?C (97.1 ?F) (Temporal) Resp 18 Wt 154 lb 14.4 oz (70.3 kg) SpO2 93% BMI 27.44 kg/m? BMI Classification: Overweight (BMI 25.0-29.9) Pulse Ox: [...] will defer at this time, to see if anything will be uploaded to file overnight (LOW: [...] suspicion of a metastatic process. Will need HEALTHCARE PROF and MBSS for assessment. - Lightheadedness upon standing and off-balance feeling, predominantly to the left, may indicate paraneoplastic syndrome or brain metastases. - The decision not to start antibiotics is based on the absence of fever, chills, or significant cough, suggesting the pleural effusion is likely due to the suspected cancer rather than an infectious process. - Thoracentesis is planned for diagnostic and [...] as no imaging on file given at [place]. Follow up labs with day team. Thyroid [...] verified with daughter and patient at bedside, deleted medications that were not being taken any more [...] Pending the following - s/p pulmonology and HEALTHCARE PROF evaluation Total time spent (which include face to face and non face to face encounters) : 81 minutes. Toxic drug monitoring/narrow therapeutic index drug monitoring : # Drug name : NA # Route administered : NA # Method of monitoring : NA Extended Emergency Contact Information Primary Emergency Contact: CordovaMaryniki Mobile Relation: Daughter Secondary Emergency Contact: Yuri Siu Mobile Relation: Son [employer] Karina Fernando : 1950 Primary Care Physician: TU HECTOR, DO The patient and/or family/surrogate voluntarily agreed to participate in ACP services. Patient?s cognitive capacity: intact Code Status: [X] [FULL CODE - Continue all advanced life support: CPR,intubation,invasive procedures] [_] [DNR-CCA - DO NOT do CPR, intubation] [_] [DNR-ICE RESURFACING MACHINE OPERATORS - Comfort care only] [_] DNR form [was/was not] signed Summary of discussion: The patient health care POA/ surrogate is the following: Catherine Cordova and Yuri Siu. [Condition that instigated the ACP on this DOS, relevant PMH, functional status, goals of care, and whom this was discussed with including names and relationship to the patient, and any relevant advance care documentation discussion] I answered all the patient/family questions that I could within the range and scope of the current medical situation. We discussed the medical conditions, risks, benefits, outcomes, and goals of care at this time for the patient's medical issues at hand in the face of the patient's chronic issues and current presentation. Total time spent: 2 minutes were spent discussing the patient's resuscitation status, advance care planning, and end of life care, with patient and/or family/surrogate. Sushila Tam MD Division of Hospitalist Medicine [facility] 36 Observed: 10/05/2024 4:00 PM Status: COMPLETED [facility]. Told by the Dr her Mother isn't leaving anytime soon. Her Mother had a CXR and her L lung was completely white. They are now waiting on CT results. Her Mother will eventually be transferred over to [facility] when a bed opens. Explains Her Mother wants back on Symbicort. 36 Observed: 10/05/2024 1:52 PM Status: COMPLETED Source: [facility] Patient is active with Brenda PENDLETON and MOIRA for EBUS/ENB 06216/82233 per code check 36 Observed: 10/05/2024 1:22 PM Status: COMPLETED Source: [facility] notified. Said She i s going to take her Mom to the ER here shortly.Needs to discuss with her Mother what to do with the Symbicort and will let us know. 36 Observed: 10/05/2024 1:10 PM Status: COMPLETED Source: [facility] Instructions EBUS Endobronchial Ultrasound Procedure Date: October 09, 2024 Time: 1:30 PM Arrival Time: 12:00 PM Physician: Dr. Mejia Location: [facility], Endoscopy Department, [address] [place], [place] [id number] Please arrive at the hospital registration desk 1.5 hours prior to scheduled start of procedure. Make sure you have a known responsible adult to transport you home from the hospital as you will not be permitted to drive. Your procedure will be cancelled if you do not have someone to take you home. You can only use a taxi/bus/Uber/medical clay transporter if you have a known responsible adult to go with you. You may use [employer]. Each patient will receive one validation ticket for [employer]. Do not drink alcohol before or [...] at 11:[address] Johnson at [address] [place] [address], [address] to discuss results. Things to look for [...] If you have any questions, please call: [phone] RN Clinical Coordinator [facility] Pulmonary Medicine [address] [place] [address], [address] [place], [place] [id number] Procedure placed on physician's outlook calendar? yes [...] with patient? yes Patient voices understanding? Yes 36 Observed: 10/05/2024 8:49 AM Status: COMPLETED Source: [employer] [facility] Chief complaint/symptom: Pt' s Daughter, Diaz explains her Mother started Trelegy [...] compromised to dial 911 prior to advisement. [phone] Observed: 10/05/2024 8:23 AM Status: COMPLETED Source: [employer] [facility] PA place to find out Formula ry alternative. 36 Observed: 10/03/2024 3:12 PM Status: COMPLETED Source: [employer] [facility] Navigator contacted the offi ce of Rhiannon Georges CNP at [facility]. Requested pulmonary function test and will scanned to media tab when available. PROGRESS NOTE Observed: 10/03/2024 2:30 PM Status: COMPLETED Source: [employer] [facility] Cardiology Note DATE of SERVICE:10/03/24 TIME of SERVICE: 2:41 PM Chief Complaint: Chief Complaint Patient presents with New Patient Shortness of Breath >1yr History of PresentIllness: Karina Fernando is a 73 y.o. female with a long history of tobacco use who was evaluated for shortness of breath. The workup in [facility] revealed a very large (6.2 x 4.7 cm) hilar mass. She was seen by pulmonary and scheduled for a biopsy also seen by Dr. Fortune. In the meantime however an echocardiogram that was done at [facility] reported a small pericardial effusion and a mass on the patient's right intra-atrial septum. Her biopsy was canceled and she was referred here to cardiology for an evaluation. I reviewed the echocardiogram that was done at [place], there is a very small hemodynamically insignificant [...] Units by mouth daily., Disp: , Rfl: Bflhwcocvmt-Wfxjtfwvj-Qmkjvp (Trelegy Ellipta) 100-62.5-25 MCG/ACT aerosol powder , [...] capsule by mouth daily., Disp: , Rfl: Homer-3 Fatty Acids (OMEGA 3 500 PO), Take [...] (1.6 m) Body mass index is 28.87 kg/m?. Physical Exam Constitutional: Appearance: Normal appearance. HENT: [...] pericardial effusion with RA collapse. 09/13/24- [facility] Assessment and Plan: BSmall hemodynamically insignificant pericardial [...] metastasis, however those do remain in the differential although I think extremely unlikely. Further imaging would require transesophageal echo, or cardiac MRI. I would probably favor the latter. It situated on the right side of the heart so there is no urgency to the workup for this. 3. Hilar mass in a long 10 standing tobacco user. Obviously, lung cancer is first and foremost here and I would proceed with an expedited workup [...] please do not hesitate to contact me OFFICE VISIT Observed: 10/03/2024 2:30 PM Status: COMPLETED Source: [facility] [id number] Karina Fernando [birth year] F Date Provider Department Center 10/03/2024 [id number]-VGWLZCAMMEBIRIS LUIS [facility]IE [facility] [address] Family History Problem Relation Age of Onset Cancer Mother Cancer Father No Known Problems Sister No Known Problems Brother Heart disease Brother Family Status - Relation Status Age at Mother Father Sister Alive Brother Alive Brother Alive Level of Service:49433 [place] OFFICE/OUTPATIENT NEW MODERATE MDM 45 MINUTES Reason for Visit and Comments: New Patient [542] Shortness of Breath [973296] - >1yr 36 Observed: 10/03/2024 1:27 PM Status: COMPLETED Source: [employer] [facility] Discussed with Dr. Indu can during [facility] appt. Patient has a pericardial effusion and cardiac lesion. She has been lightheaded for a few days and expedited cardiology eval is recommended. Spoke with cardiology office at [phone] and arranged for appt with Dr. Luis at [address] [facility] [address]. Johnson will send patient right over. 36 Observed: 10/03/2024 12:19 PM Status: COMPLETED Source: [employer] [facility] Navigator received request f [facility] cardiothoracic surgery office to assist with expediting lung nodule clinic evaluation. Patient lives far away and [facility] is hoping patient can be seen while on campus. Patient was seen by Dr. Silvio Fortune this morning and needs pulmonary evaluation prior to surgical consideration. Verified prior images and reports from [facility] are available for review in PACS. Scanned imaging reports including CT chest imaging, thyroid imaging and provider office notes from medical oncology and pulmonary in [place] to the media tab. Patient will see Dr. Lacho Tillman now to further evaluate left hilar mass and adenopathy first noted on CT imaging 09/13/2024 in [place]. 37 Observed: 10/03/2024 12:15 PM Status: COMPLETED Source: [employer] [facility] YOUR APPOINTMENT TODAY WAS [facility] LUNG NODULE CLINIC, COPD CLINIC, PULMONARY AND SLEEP MEDICINE OFFICE. PLEASE CALL OUR OFFICE AT [phone] IF YOU HAVE NOT RECEIVED YOUR TEST [...] to make improvements. COVID-19 VACCINATION INFORMATION: PH. [phone] HEALTH.ORG/CORONAVIRUS/VACCINE [facility] Central Scheduling [phone] [facility] Sleep Scheduling [phone] PROGRESS NOTE Observed: 10/03/2024 12:15 PM Status: COMPLETED Source: [facility] SH, Pulmonary Critical Car e Medicine [address] [place] [id number] Pulmonary Patient Visit - New 10/03/2024 Referring Physician: TU HECTOR DO Reason for Referral: SOB History of Present Illness Karina Fernando is a 73 y.o. F with history of recurrent sinus infections, COPD on symbicort/albuterol, HTN who presented for a left hilar mass. Stated that in May she began having shortness of breath which worsened until she went to the ER in [place] in August. Found on CT with a left hilar mass, left upper lobe pleural-based mass, and moderate pericardial effusion. Evaluated by oncology and recommended for PET/CT, MRI brain, and biopsy. Established with pulmonology and had been planned for EBUS in [place] but canceled after TTE demonstrated a right [...] acetaminophen (Tylenol Extra Strength) 500 MG tablet [id number] Yes Take by mouth. Slick Garcia MD Not Taking Active albuterol (Ventolin HFA) 108 (90 Base) MCG/ACT inhaler [id number] Inhale 2 puffs every 4 hours as needed for wheezing or shortness of breath. Rachel Johnson DO Active busPIRone (Buspar) 10 MG tablet [id number] Yes Take 10 mg by mouth 3 times daily as needed. Slick Garcia MD Taking Active cetirizine (ZyrTEC) 10 MG tablet [id number] Yes Take 10 mg by mouth daily. Slick ProviderMD Taking Active cholecalciferol (Vitamin D-3) 25 MCG (1000 UT) capsule [id number] Yes Take 1,000 Units by mouth daily. Historical ProviderMD Active Jlulbgcokqg-Gacdgsrjl-Gnhueq (Trelegy Ellipta) 100-62.5-25 MCG/ACT aerosol powder [id number] Inhale 1 Inhalation daily. Rachel Johnson, Active gabapentin (Neurontin) 300 MG capsule [id number] Yes Take 300 mg by mouth 3 times daily. Slick ProviderMD Not Taking Active hydroCHLOROthiazide (HYDRODiuril) 25 MG tablet [id number] Yes Take 25 mg by mouth daily. Slick ProviderMD Taking Active loratadine (Claritin) 5 MG chewable tablet [id number] Yes Chew 5 mg daily. Slick ProviderMD Active Melatonin 2.5 MG chewable tablet [id number] Yes Chew Daily as needed. Slick Garcia MD Not Taking Active meloxicam (Mobic) 15 MG tablet [id number] Yes Take by mouth daily. Slick ProviderMD Not Taking Active Multiple Vitamin (multivitamin) capsule [id number] Yes Take 1 capsule by mouth daily. Historical ProviderMD Active Homer-3 Fatty Acids (OMEGA 3 500 PO) [id number] Yes Take by mouth daily. Historical ProviderMD Taking Active oxyCODONE-acetaminophen (Percocet) 5-325 MG tablet [id number] Yes Historical ProviderMD Taking Active simvastatin (Zocor) 20 MG tablet [id number] Yes Take 20 mg by mouth Nightly. Historical ProviderMD Taking Active traZODone (Desyrel) 100 MG tablet [id number] Yes Take 100 mg by mouth Nightly. Historical ProviderMD Taking Active valACYclovir (Valtrex) 500 MG tablet [id number] Yes Take by mouth daily. Historical ProviderMD Not Taking Active Vitamin E 268 MG (400 UNIT) capsule [id number] Yes Take by mouth daily. Historical ProviderMD [...] family including left hilar lesion extending superiorly to the mediastinum and left upper lobe lesion. Agree with bronchoscopy with EBUS for tissue diagnosis. Procedure explained in detail to patient including risks [...] PM 10/03/24 Pulmonary and Critical Care Medicine OFFICE VISIT Observed: 10/03/2024 12:15 PM Status: COMPLETED Source: [facility] [id number] Karina Fernando Hans [birth year] F Date Provider Department Center 10/03/2024 [id number], C*[facility] PUL None Family History Problem Relation Age of Onset Cancer Mother Cancer Father No Known Problems Sister No Known Problems Brother Heart disease Brother Family Status - Relation Status Age at Mother Father Sister Alive Brother Alive Brother Alive Level of Service:19922 [place] OFFICE/OUTPATIENT NEW MODERATE MDM 45 MINUTES Reason for Visit and Comments: New Patient [542] 36 Observed: 10/03/2024 12:04 PM Status: COMPLETED Source: [facility] [employer] [facility] Orders Placed This Encounter Procedures MR brain w and wo contrast Standing Status: Future Standing Expiration Date: 10/03/2025Order Specific Question: Record Decision Support information? Answer: [...] thigh Standing Status: Future Standing Expiration Date: 10/03/2025Order Specific Question: Record Decision Support information? Answer: No Order Specific Question: Decision Support Exception Answer: Emergency Medical Condition (MA) [1] Order Specific Question: Is this the initial or subsequent exam for the patient's oncological treatment? Answer: Initial Creatinine, Serum Standing Status: Future Number of Occurrences: 1 Standing Expiration Date: 10/03/2025 PROGRESS NOTE Observed: 10/03/2024 11:15 AM Status: COMPLETED Source: [facility] [employer] [facility] [address] [facility] [address] Dept: [phone] Dept Loc: [phone] Visit type: New Reason for Visit: AP [...] effusion. Per note, pt had presented to [place] ED in August 2023 for dyspnea. CTA [...] tablet, Take by mouth., Disp: , Rfl: Homer-3 Fatty Acids (OMEGA 3 500 PO), Take [...] Wall thickness is mildly increased. Systolic function is normal. The estimated ejection fraction is 60-65%. [...] Wall thickness is mildly increased. Systolic function is normal. The estimated ejection fraction is 60-65%. Wall motion is normal; there are no regional wall motion abnormalities. The wall mass is 129 g. The wall mass index is 71 g/m?. Normal diastolic function. Ventricular septum: Thickness is mildly increased. Septal motion is dyssynergic. Left atrium: The atrium is normal in size. The volume index by biplane method is 11 ml/m?. Right ventricle: The cavity size is normal. [...] right atrial pressure is 3 mm Hg. Mitral valve: The pressure half-time is 66 ms. The peak E/A ratio is 0.59. The valve area (LVOT continuity) is 2.4 cm?. Doppler: There is no evidence for stenosis. There is no significant regurgitation. The mean diastolic gradient is 4 mm Hg. The valve area by pressure half-time is 3.3 cm?. Aortic valve: The valve is trileaflet. The peak systolic velocity is 1.5 m/sec. The systolic velocity-time integral is 22.1 cm. The mean systolic gradient is 5 mm Hg. The LVOT to aortic valve VTI ratio is 0.79. The valve area by VTI is 2.5 cm?. The valve area by peak velocity is 2.5 cm?. Doppler: There is no stenosis. There is [...] Respirophasic diameter changes are in the normal range (> 50%). Pericardium: A small pericardial effusion is identified. Doppler: There is moderate RA collapse for less than 50% of the cardiac cycle. Atrial [...] the proposed treatment or procedure have been discussed. The risks and benefits of the proposed treatment [...] This note may have been dictated using [employer] Medical Practice Edition 2.6 and/or Her[employer] Voice Recognition Feature. The document was proofread, however unrecognized voice recognition folding rules printing machine operator errors may be present. OFFICE VISIT Observed: 10/03/2024 11:15 AM Status: COMPLETED Source: [facility] [id number] Karina Fernando [birth year] F Date Provider Department Center 10/03/2024 [id number] [facility] CT None Family History Problem Relation Age of Onset Cancer Mother Cancer Father No Known Problems Sister No Known Problems Brother Heart disease Brother Family Status - Relation Status Age at Mother Father Sister Alive Brother Alive Brother Alive Level of Service:64046 [place] OFFICE/OUTPATIENT NEW HIGH [facility] 60 MINUTES Reason for Visit and Comments: New Patient [542] US THYROID Observed: 09/19/2024 11:00 AM Status: F Source: [facility] ORIGINAL EXAMINATION: ULTRASOUND OF THE THYROID WITH [...] Sign Date: 09/19/2024 1:04:03 PM Ordering Provider: GIOVANNI MAURER .MANUAL DIFF Collected: 09/13/2024 12:53 PM Status: F Source: [facility] TYPE CODE TESTS RESULT OUT OF RANGE REFERENCE UNITS LAB NEUM(LOINC) Neutrophil %, Manual 52.0 50.0-75.0 % LAB LYMM(LOINC) Lymphocyte %, Manual 32.0 20.0-40.0 % LAB MONM(LOINC) Monocyte %, Manual 16.0 High 2.0-13.0 % LAB EOM(LOINC) Eosinophil %, Manual 0.0 0.0-7.0 % LAB BASM(LOINC) Basophil %, Manual 0.0 0.0-2.5 % LAB NRBC(LOINC) Nucleated RBC 0.0 /100 W BC LAB ANEUM(LOINC) Neutrophil, Abs Manual 2.9 2.3-8.1 10 3/mcL LAB ABLYMM(LOINC) Lymphocyte, Abs Manual 1.8 0.9-4.3 10 3/mcL LAB AMONM(LOINC) Monocyte, Abs Manual 0.9 0.1-1.4 10 3/mcL LAB AEOSM(LOINC) Eosinophil, Abs Manual 0.0 0.0-0.7 10 3/mcL LAB ABASM(LOINC) Basophil, Abs Manual 0.0 0.0-0.2 10 3/mcL Performed By: #### CMP, CBC, PBNP, GFR, TSH, FT4, DIFF, MORPH #### [address] [address] .MORPH Collected: 09/13/2024 12:53 PM Status: F Source: [facility] TYPE CODE TESTS RESULT OUT OF RANGE REFERENCE UNITS LAB PLTE(LOINC) Platelet Estimate Normal LAB ANIS(LOINC) Anisocytosis 2+ LAB MICYT(LOINC) Microcytosis 2+ Performed By: #### CMP, CBC, PBNP, GFR, TSH, FT4, DIFF, MORPH #### [address] [address] CBC Collected: 12:53 PM Status: F Source: [facility] TYPE CODE TESTS RESULT OUT OF RANGE REFERENCE UNITS LAB WBC(LOINC) WBC 5.6 4.5-10.8 10 3/mcL LAB RBCCT(LOINC) RBC 4.66 4.10-5.30 10 6/mcL LAB HGB(LOINC) Hgb 11.7 Low 12.0-16.0 G/dL LAB HCT(LOINC) Hct 36.6 34.0-46.0 % LAB MCV(LOINC) MCV 78.7 Low 80.0-99.0 fL LAB MCH(LOINC) MCH 25.1 Low 27.0-33.0 pg LAB MCHC(LOINC) MCHC 32.0 32.0-36.0 G/dL LAB RDW(LOINC) RDW 25.1 High 11.5-15.5 % LAB PLT(LOINC) Platelet 283 150-450 10 3/mcL LAB MPV(LOINC) MPV 7.0 6.6-10.5 fL Performed By: #### CMP, CBC, PBNP, GFR, TSH, FT4, DIFF, MORPH #### [address] [address] TSH Collected: 12:53 PM Status: F Source: [facility] TYPE CODE TESTS RESULT OUT OF RANGE REFERENCE UNITS LAB TSH(LOINC) TSH 0.88 0.36-3.74 mcIU/mL Performed By: #### CMP, CBC, PBNP, GFR, TSH, FT4, DIFF, MORPH #### [address] [address] FT4 Collected: 12:53 PM Status: F Source: [facility] TYPE CODE TESTS RESULT OUT OF RANGE REFERENCE UNITS LAB FT4(LOINC) Free T4 1.15 0.76-1.46 ng/dL Performed By: #### CMP, CBC, PBNP, GFR, TSH, FT4, DIFF, MORPH #### [address] [address] CMP Collected: 09/13/2024 12:53 PM Status: F Source: [facility] TYPE CODE TESTS RESULT OUT OF RANGE REFERENCE UNITS LAB GLU(LOINC) Glucose Level 94 83-110 mg/dL LAB NA(LOINC) Sodium Level 139 136-145 mmol/L LAB K(LOINC) Potassium Level 3.8 3.5-5.1 mmol/L LAB CL(LOINC) Chloride 102 98-107 mmol/L LAB CO2(LOINC) CO2 34 High 23-31 mmol/L LAB EBAL(LOINC) Electrolyte Balance 3.0 Low 4.0-15.0 mEq/L LAB BUN(LOINC) BUN 8 7-18 mg/dL LAB CRE(LOINC) Creatinine Lvl (s) 1.16 High 0.55-1.02 mg/dL Result Comment: Testing perf ormed on Siemens Dimension EXL analyzer using a modified kinetic Cristina technique. LAB BC(LOINC) BUN/Creatinine Ratio 7 7-27 ratio LAB CA(LOINC) Calcium Lvl 9.6 8.4-10.2 mg/dL LAB PROT(LOINC) Total Protein 6.9 6.4-8.2 G/dL LAB ALB(LOINC) Albumin Level 3.6 3.4-4.8 G/dL LAB GLB(LOINC) Globulin 3.3 1.5-3.8 G/dL LAB AG(LOINC) A/G Ratio 1.1 1.1-2.5 ratio LAB BILT(LOINC) Bili Total 0.2 0.2-1.0 mg/dL Result Comment: Use of this assay is not recommended for patients undergoing treatment with eltrombopag due to the potential for falsely elevated results. LAB AP(LOINC) Alk Phos 67 40-135 U/L LAB AST(LOINC) AST/SGOT 20 10-40 U/L LAB ALT(LOINC) ALT/SGPT 28 14-59 U/L Performed By: #### CMP, CBC, PBNP, GFR, TSH, FT4, DIFF, MORPH #### [address] [address] PBNP Collected: 5 12:53 PM Status: F Source: [facility] TYPE CODE TESTS RESULT OUT OF RANGE REFERENCE UNITS LAB PBNP(LOINC) N-Terminal proBNP 235 High 0-125 pg/mL Result Comment: NT-proBNP re sults of less than 300 pg/mL effectively rules out acute congestive heart failure with 99% negative predictive value. Performed By: #### CMP, CBC, PBNP, GFR, TSH, FT4, DIFF, MORPH #### [facility] [address] [place], [place] [address] .GFR Collected: 12:53 PM Status: F Source: [facility] TYPE CODE TESTS RESULT OUT OF RANGE REFERENCE UNITS LAB eGFR(LOINC) Estimated Glomerular Filtration Rate 50 ml/min/1. 73sqm Result Comment: Stages of Chronic Kidney Disease [...] calculate the eGFR results. Performed By: #### CMP, CBC, PBNP, GFR, TSH, FT4, DIFF, MORPH #### [address] [place], [place] [address] XR CHEST 2 VIEWS Observed: 09/13/2024 9:30 AM Status: F Source: [facility] ORIGINAL EXAMINATION: TWO XRAY VIEWS OF THE [...] Sign Date: 09/14/2024 4:52:34 PM Ordering Provider: GIOVANNI MAURER FLUABV+SARS-COV-2+RSV PNL RE SP MIGUE+PROBE Observed: 09/02/2024 3:28 PM Status: F Source: [facility] SARS-COV-2 (AGENT OF COVID-1 9) RNA: Not detectedINFLUENZA A RNA: Not detectedINFLUENZA B RNA: Not detectedRESPIRATORY SYNCYTIAL VIRUS (RSV) RNA: Not detected Performed By: #### [id number] # ### [facility] CLIA [id number] [address] [place] [address] OF [facility] PROGRESS Observed: 09/02/2024 1:32 PM Status: COMPLETED Source: [facility] HNO ID: [id number] Author: DUNG LITTLEJOHN MD Service: ? Author [...] Encouraged follow-up with PCP. Dung Littlejohn MD CNOV Observed: 09/02/2024 1:15 PM Status: COMPLETED Source: [facility] Office Visit (WSTR) KARINA FERNANDO ([id number]) 1950 F Date Time Provider Department 09/02/24 1:15 PM DUNG LITTLEJOHN [facility] During your visit today, we recorded [...] Encouraged follow-up with PCP. Dung Littlejohn MD Allergies As of Date: 09/02/2024 Noted Allergy Reaction ALENDRONATE 01/12/2023 17 - Myalgia 14 - Other: See Comments Comments: Other reaction(s): Muscle ache, Swelling / lump finding CECLOR (CEFACLOR) 11/18/2006 4 - Hives DYAZIDE (TRIAMTERENE-HYDROCHLOROT*11/18/2006 2 - Rash ERYC (ERYTHROMYCIN) 11/18/2006 8 - GI Upset FAMCICLOVIR 09/27/2018 16 - Unknown Comments: Other reaction(s): hives GABAPENTIN 09/27/2018 16 - Unknown Comments: Other reaction(s): Unknown PENICILLINS 11/18/2006 4 - Hives PERCODAN (OXYCODONE HCL-OXYCODONE*10/06/2012 11 - Vomiting ULTRAM (TRAMADOL HCL) 11/18/2006 11 - Vomiting Date Reviewed: 09/02/2024 Reviewed by: Kalie Gonzalez MA - Fully Assessed Reason for Visit: Sinus Problem [99] Cmt: sinus pressure, drainage, sob x 3 days Primary Visit Diagnosis:COPD with exacerbation (HCC) [J44.1] Other Visit Diagnosis:URI, acute [J06.9] Order(s):COVID AND INFLUENZA A/B AND RSV PCR, ROUTINE [[id number]] Order #: [id number]. #:[id number] doxycycline monohydrate (MONODOX) 100 mg capsuleTake 1 capsule by mouth two times a day for 5 days.Disp: 10 capsuleRfl: 0 predniSONE (DELTASONE) 20 mg tabletTake 1 tablet by mouth two times a day for 5 days.Disp: 10 tabletRfl: 0 Prescriptions as of 09/02/2024 - doxycycline monohydrate (MONODOX) 100 mg capsule Take 1 capsule by mouth two times a day for 5 days. - predniSONE (DELTASONE) 20 mg tablet Take 1 tablet by mouth two times a day for 5 days. - oxyCODONE-acetaminophen (PERCOCET) 5-325 mg tablet Take by mouth every 8 hours as needed for pain. - hydroCHLOROthiazide 25 mg tablet Take 25 mg by mouth. - benzonatate (TESSALON PERLES) 100 mg capsule Take 1 capsule by mouth three times daily as needed for cough. - busPIRone (BUSPAR) 10 mg tablet Buspirone Hcl Active 10 MG THREE TIMES A DAY August 24, 2019 9:19am - traZODone (DESYREL) 50 mg tablet Trazodone Active 50 MG AT BEDTIME August 24, 2019 9:19am - fluticasone (FLONASE) 50 mcg/actuation nasal spray Use 2 Sprays in each nostril once daily. Rinse mouth after use. - guaiFENesin (MUCINEX) 600 mg 12 hr tablet Take 2 tablets by mouth twice daily. - fluticasone (FLOVENT HFA) 110 mcg/actuation inhaler Inhale 2 Puffs as instructed twice daily. - FLUoxetine (PROZAC) 10 mg capsule Take 10 mg by mouth once daily. - valACYclovir (VALTREX) 500 mg tablet Take 500 mg by mouth once daily. - FERROUS SULFATE (FE-TABS ORAL) Take by mouth. - lisinopril (ZESTRIL, PRINIVIL) 10 mg tablet Take 10 mg by mouth once daily. - lovastatin (MEVACOR) 20 mg tablet Take 20 mg by mouth daily at bedtime. - diazePAM (VALIUM) 5 mg tablet Take 5 mg by mouth every 6 hours as needed. - CALCIUM-VITAMIN D3 ORAL Take by mouth. - Ascorbic Acid 500 mg chew Take 500 mg by mouth once daily. - torsemide (DEMADEX) 20 mg tablet Take 1 tablet by mouth once daily. - oxyCODONE ER (OXYCONTIN) 40 mg Tb12 Take 1 tablet by mouth every 12 hours. - pantoprazole sodium(PROTONIX 40 MG TAB) Take by mouth. - ALBUTEROL SULFATE HFA 90 MCG/ACTUATION AEROSOL INHALER take 2 puffs four times daily. - oxycodone hcl/acetaminophen(PERCOCET 10 MG-325 MG TAB) Take one tablet as needed. - citalopram (CELEXA) 20 mg ORAL Tab Take by mouth. Problem List As Of Date 09/02/2024 Noted Resolved MYALGIA AND MYOSITIS NOS [[id number]] TOBACCO USE DISORDER [F17.200] JOINT PAIN-UNSPEC [M25.50] ESOPHAGEAL REFLUX [K21.9] GOITER NOS [E04.9] OBST CHRON BRONCHITIS WITH EXAC [J44.1] ACTINIC KERATOSIS [L57.0] 11/08/2008 SOLAR LENTIGENES////DYSCHROMIA OTHER [L81.9] 11/08/2008 SEBORRHEIC KERATOSIS NOS [L82.1] 11/08/2008 CHR SOLAR SKIN DAMAGE NOS [L57.8] 11/08/2008 INTRADERMAL NEVUS MOLE--BACK-BENIGN JERAMIE SKIN TR*11/08/2008 VIRAL WARTS NOS [B07.9] 11/08/2008 Prescriptions ordered this encounter Disp Refills Start End DOXYCYCLINE MONOHYDRATE 100 MG CAPSU* 10 c* 0 09/02/2024 09/07/2024 Route: ORAL Sig: Take 1 capsule by mouth two times a day for 5 days. PREDNISONE 20 MG TABLET 10 t* 0 09/02/2024 09/07/2024 Route: ORAL Sig: Take 1 tablet by mouth two times a day for 5 days. Encounter Status:Closed by DUNG LITTLEJOHN on 09/02/24 PROGRESS Observed: 05/31/2024 5:45 PM Status: COMPLETED Source: [facility] HNO ID: [id number] Author: SERGIO MOHR PA-C Service: ? Author Type: Physician Market Development Manager Type: Progress Notes Filed: 05/31/2024 17:48 Note Text: This note was created using [employer]. Subjective Karina Fernando is a 73 year [...] Objective BP 140/84 Pulse 94 Temp 37.3 ?C (99.1 ?F) (Tympanic) Resp 18 Wt 75.4 kg (166 [...] the left lower lung. Patient does have decreased breath sounds here on auscultation. She is afebrile and oxygenating well. Not in any distress. I did discuss with her possibly using Levaquin as she was just on doxycycline however patient very hesitant to try a new antibiotic. She is allergic to cephalosporin as well as penicillin. She also has GI upset to macrolides. I did place her back on doxycycline however discussed she needs to have a follow-up with PCP within 2 to 3 days if not improving. Patient voiced understanding to plan. - XR CHEST 2V FRONTAL/LAT Sergio Mohr PA-C XR CHEST 2V FRONTAL/LAT Observed: 2023 5:18 PM Status: F Source: [facility] * * *Final Report* * * DATE [...] IMPRESSION: Mild left base atelectasis or infiltrate Assistant Softball Coach: [facility] Transcribe Date/Time: May 31 2024 5:27P Dictated by : JOSELYN VIDALES MD This examination was interpreted and the report reviewed and electronically signed by: JOSELYN VIDALES MD on May 31 2024 5:27PM EST [id number] PROGRESS Observed: 05/31/2024 5:00 PM Status: COMPLETED Source: [facility] HNO ID: [id number] Author: RIO PIKE RT(R) Service: ? Author Type: Team Sports Sales Associate Type: Progress Notes Filed: 05/31/2024 17:17 Note [...] PATIENT PRESENTS WITH AN IMPLANTABLE OR ATTACHED ROLLER PICKER: No RADIOLOGY DEPARTMENT: General X-ray: Exam(s) Completed: Chest X-Ray PERIPHERAL IV DATA: Not applicable SIGNED BY: RT Yoko(R) May 31, 2024 5:12 PM CNOV Observed: 05/31/2024 4:45 PM Status: COMPLETED Source: [facility] Office Visit (WSTR) KARINA FERNANDO ([id number]) 1950 F Date Time Provider Department 05/31/24 4:45 PM [facility] During your visit today, we recorded the following information about you: Temperature Pulse Respiration Blood pressure 99.1 degrees 94/minute 18/minute 140/84 Weight 75.4 kg Sergio Mohr PA-C 05/31/2024 5:48 PM Signed This note was created using [employer]riter. Subjective Karina Fernando is a 73 year [...] Objective BP 140/84 Pulse 94 Temp 37.3 ?C (99.1 ?F) (Tympanic) Resp 18 Wt 75.4 kg (166 [...] the left lower lung. Patient does have decreased breath sounds here on auscultation. She is afebrile and oxygenating well. Not in any distress. I did discuss with her possibly using Levaquin as she was just on doxycycline however patient very hesitant to try a new antibiotic. She is allergic to cephalosporin as well as penicillin. She also has GI upset to macrolides. I did place her back on doxycycline however discussed she needs to have a follow-up with PCP within 2 to 3 days if not improving. Patient voiced understanding to plan. - XR CHEST 2V FRONTAL/LAT Sergio Mohr PA-C Allergies As of Date: 05/31/2024 Noted Allergy Reaction ALENDRONATE 01/12/2023 17 - Myalgia 14 - Other: See Comments Comments: Other reaction(s): Muscle ache, Swelling / lump finding CECLOR (CEFACLOR) 11/18/2006 4 - Hives DYAZIDE (TRIAMTERENE-HYDROCHLOROT*11/18/2006 2 - Rash ERYC (ERYTHROMYCIN) 11/18/2006 8 - GI Upset FAMCICLOVIR 09/27/2018 16 - Unknown Comments: Other reaction(s): hives GABAPENTIN 09/27/2018 16 - Unknown Comments: Other reaction(s): Unknown PENICILLINS 11/18/2006 4 - Hives PERCODAN (OXYCODONE HCL-OXYCODONE*10/06/2012 11 - Vomiting PREDNISONE 05/31/2024 14 - Other: See Comments Comments: lightheaded ULTRAM (TRAMADOL HCL) 11/18/2006 11 - Vomiting Date Reviewed: 05/31/2024 Reviewed by: Aixa Shabazz LPN - Fully Assessed Reason for Visit: Cough [28] Cmt: Cough, sinus pressure and drainage x 2 days Primary Visit Diagnosis:Infiltrate of lower lobe of left lung present on imaging study [R91.8] Order(s):XR CHEST 2V FRONTAL/LAT [[id number]] Order #: [id number] FUTURE doxycycline (VIBRA-TABS) 100 mg tabletTake 1 tablet by mouth two times a day for 7 days.Disp: 14 tabletRfl: 0 Prescriptions as of 05/31/2024 - oxyCODONE-acetaminophen (PERCOCET) 5-325 mg tablet Take by mouth every 8 hours as needed for pain. - doxycycline (VIBRA-TABS) 100 mg tablet Take 1 tablet by mouth two times a day for 7 days. - hydroCHLOROthiazide 25 mg tablet Take 25 mg by mouth. - benzonatate (TESSALON PERLES) 100 mg capsule Take 1 capsule by mouth three times daily as needed for cough. - busPIRone (BUSPAR) 10 mg tablet Buspirone Hcl Active 10 MG THREE TIMES A DAY August 24, 2019 9:19am - traZODone (DESYREL) 50 mg tablet Trazodone Active 50 MG AT BEDTIME August 24, 2019 9:19am - fluticasone (FLONASE) 50 mcg/actuation nasal spray Use 2 Sprays in each nostril once daily. Rinse mouth after use. - guaiFENesin (MUCINEX) 600 mg 12 hr tablet Take 2 tablets by mouth twice daily. - fluticasone (FLOVENT HFA) 110 mcg/actuation inhaler Inhale 2 Puffs as instructed twice daily. - FLUoxetine (PROZAC) 10 mg capsule Take 10 mg by mouth once daily. - valACYclovir (VALTREX) 500 mg tablet Take 500 mg by mouth once daily. - FERROUS SULFATE (FE-TABS ORAL) Take by mouth. - lisinopril (ZESTRIL, PRINIVIL) 10 mg tablet Take 10 mg by mouth once daily. - lovastatin (MEVACOR) 20 mg tablet Take 20 mg by mouth daily at bedtime. - diazePAM (VALIUM) 5 mg tablet Take 5 mg by mouth every 6 hours as needed. - CALCIUM-VITAMIN D3 ORAL Take by mouth. - Ascorbic Acid 500 mg chew Take 500 mg by mouth once daily. - torsemide (DEMADEX) 20 mg tablet Take 1 tablet by mouth once daily. - oxyCODONE ER (OXYCONTIN) 40 mg Tb12 Take 1 tablet by mouth every 12 hours. - pantoprazole sodium(PROTONIX 40 MG TAB) Take by mouth. - ALBUTEROL SULFATE HFA 90 MCG/ACTUATION AEROSOL INHALER take 2 puffs four times daily. - oxycodone hcl/acetaminophen(PERCOCET 10 MG-325 MG TAB) Take one tablet as needed. - citalopram (CELEXA) 20 mg ORAL Tab Take one(1) tablet daily. Problem List As Of Date 05/31/2024 Noted Resolved MYALGIA AND MYOSITIS NOS [[id number]] TOBACCO USE DISORDER [F17.200] JOINT PAIN-UNSPEC [M25.50] ESOPHAGEAL REFLUX [K21.9] GOITER NOS [E04.9] OBST CHRON BRONCHITIS WITH EXAC [J44.1] ACTINIC KERATOSIS [L57.0] 11/08/2008 SOLAR LENTIGENES////DYSCHROMIA OTHER [L81.9] 11/08/2008 SEBORRHEIC KERATOSIS NOS [L82.1] 11/08/2008 CHR SOLAR SKIN DAMAGE NOS [L57.8] 11/08/2008 INTRADERMAL NEVUS MOLE--BACK-BENIGN JERAMIE SKIN TR*11/08/2008 VIRAL WARTS NOS [B07.9] 11/08/2008 Prescriptions ordered this encounter Disp Refills Start End DOXYCYCLINE HYCLATE 100 MG TABLET 14 t* 0 05/31/2024 06/07/2024 Route: ORAL Sig: Take 1 tablet by mouth two times a day for 7 days. Encounter Status:Closed by SERGIO MOHR on 05/31/24 ALLERGIES DATE TYPE / CODE NAME / CODE REACTION SEVERITY SOURCE 05/31/2024 DRUG INGREDI/77830 1003(SNOMED CT) PREDNISONE OTHER: SEE C [facility] 01/12/2023 DRUG/[id number] 3(SNOMED CT) ALENDRONATE Myalgia [facility] 09/27/2018 DRUG INGREDI/43102 1003(SNOMED CT) FAMCICLOVIR UNKNOWN [facility] 09/27/2018 DRUG INGREDI/41307 1003(SNOMED CT) GABAPENTIN UNKNOWN [facility] 10/06/2012 DRUG/[id number] 3(SNOMED CT) OXYCODONE PGF-YLOOQYAOG-ULF [facility] 11/18/2006 DRUG INGREDI/92278 1003(SNOMED CT) [facility] 11/18/2006 DRUG/69364479 3(SNOMED CT) TRIAMTERENE-HYDROCHLO ROTHIAZID RASH [facility] 11/18/2006 DRUG/76599780 3(SNOMED CT) ERYTHROMYCIN GI UPSET [facility] 11/18/2006 Drug Class/0306774 03(SNOMED CT) PENICILLINS HIVES [facility] 11/18/2006 DRUG INGREDI/57159 1003(SNOMED CT) TRAMADOL HCL [facility] ENCOUNTERS ADMIT/DISCHARGE ACCOUNT NUMBER ADMITTING ENCOUNTER CLASS LOCATION SOURCE 04/09/2025/04/09/20 [id number] [place] [facility] 04/02/2025/04/06/20 [id number] [place] [facility] 03/12/2025/03/12/20 [id number] [place] [facility] 11/24/2024/11/25/19 [id number] Emergency ABuilding:[facility] 10/26/2024/10/27/19 [id number] Ambulatory Buildin [id number] [facility] 10/24/2024/10/25/19 [id number] Ambulatory Buildin [id number] [facility] 10/20/2024/10/21/19 25 [id number] Ambulatory Buildin [id number] [facility] 10/17/2024/10/18/19 25 [id number] Ambulatory Buildin [id number] [facility] 10/17/2024/10/18/19 25 [id number] Ambulatory Buildin [id number] [facility] 10/09/2024/10/10/19 25 [id number] CAIN MEJIA Ambulatory Buildin [id number]: SBHMAINORBed : 4206 [facility] 10/06/2024 [id number] Ambulatory ABuilding:[facility] 10/05/2024/10/07/19 25 [id number] EMILE HORNE Ambulatory Buildin [id number]: [facility] [id number]: 4-439 A [facility] 10/03/2024/10/04/19 25 [id number] Ambulatory Buildin [id number] [facility] 10/03/2024/10/04/19 25 [id number] Ambulatory Buildin [id number] [facility] 10/03/2024/10/04/19 25 [id number] Ambulatory Buildin [id number] [facility] 09/25/2024/09/26/19 25 [id number] [place] [facility] 09/19/2024/09/20/19 25 [id number] [place] [facility] 09/13/2024/09/18/19 25 [id number] [place] [facility] 09/13/2024/09/13/19 25 [id number] [place] [facility] 09/02/2024/09/02/19 25 [id number] [facility] 05/31/2024/05/31/20 24 [id number] [facility] 05/31/2024/11/13 [id number] [facility] PAYERS ENCOUNTER GUARANTOR PAYER SUBSCRIBER SOURCE 04/09/2025 KARINA BRUCE: [place] [address]Fkh: (HP) Primary Insurance:[employer]OSS INSCOPolicy Number: [id number] Date:9292-87-41Romj Name:[place] [address]EL: KARINA BROWNB: [id number] [place] [place] [address]Bpr: (HP) (WP) [facility] 04/02/2025 KARINA BROWNB: [place] [address]Jvs: (HP) Primary Insurance:[employer] BL[employer] CROSS INSCOPolicy Number: [id number] Date:2719-16-85Carp Name:[place] [address]VY: KARINA BROWNB: [id number] [facility] [facility] [place] [address]Uaa: (HP) (WP) [facility] 03/12/2025 KARINA BROWNB: [facility] [place] [place] [address]Flb: (HP) Primary Insurance:[employer] BL[employer] CROSS INSCOPolicy Number: [id number] Date:9089-51-36Mnjd Name:[place] [address]RK: KARINA BROWNB: [id number] [place] [address]Zez: (HP) () [facility] 11/24/2024 KARINA BROWNB: [facility] [address]Tto: (HP) Primary Insurance:EPIFANIO [employer]LL INSCOPolicy Number: [id number] Date:8990-80-70Onxd Name:CHERYL [place]IGE [id number] [address]OA: KARINA FERNANDOB: [id number] [place] [address]Prq: (HP) () [facility] 10/26/2024 Primary Insurance:KRAIG[employer] MEDICARE ADVANTAGEPolicy Number: [id number] Date:3238-60-47Quss Name:Medicare O KARINA BROWNB: [id number] [place], [place] [address] [place] [address] 10/24/2024 Primary Insurance:EPIFANIO MEDICARE ADVANTAGEPolicy Number: [id number] Date:7835-35-95Vdxj Name:Medicare HMO KARINA FERNANDOB: [id number] [place], [place] [address] [place] [address] 10/20/2024 Primary Insurance:KRAIG MEDICARE ADVANTAGEPolicy Number: [id number] Date:3913-29-42Vtam Name:Medicare HMO KARINA FERNANDOB: [id number] [place] [address] [facility] 10/17/2024 Primary Insurance:KRAIG MEDICARE ADVANTAGEPolicy Number: [id number] Date:4666-54-16Thqp Name:Medicare HMO KARINA Maxwell MELISSACOCOB: [id number] [place] [address] [facility] 10/17/2024 Primary Insurance:EPIFANIO MEDICARE ADVANTAGEPolicy Number: [id number] Date:9456-44-60Zxox Name:Medicare O KARINA BROWNB: [id number] [place] [address] [facility] 10/09/2024 Primary Insurance:EPIFANIO MEDICARE ADVANTAGEPolicy Number: [id number] Date:6798-27-81Vfwm Name:Medicare HMO KARINA BROWNB: [id number] [place] [address] [facility] 10/06/2024 KARINA BROWNB: [place] [address]Fyw: (HP) Primary Insurance:EPIFANIO MELENDEZ INSCOPolicy Number: [id number] Date:0188-45-05Xwwg Name:[facility] [place] [address], [place] [address]MC: KARINA BROWNB: [id number] [place] [address]Shw: (HP) () [facility] 10/05/2024 Primary Insurance:EPIFANIO MEDICARE ADVANTAGEPolicy Number: [id number] Date:3865-59-37Wdlt Name:Medicare O KARINA BROWNB: [id number] [place] [address] [facility] 10/03/2024 Primary Insurance:EPIFANIO MEDICARE ADVANTAGEPolicy Number: [id number] Date:9985-72-05Kgxy Name:Medicare HMO KARINA BROWNB: [id number] [place] [address] [facility] 10/03/2024 Primary Insurance:EPIFANIO MEDICARE ADVANTAGEPolicy Number: [id number] Date:6533-93-88Vgnu Name:Medicare HMO KARINA BROWNB: [id number] [place] [address] [facility] 10/03/2024 Primary Insurance:EPIFANIO MEDICARE ADVANTAGEPolicy Number: [id number] Date:4796-37-97Komh Name:Medicare HMO KARINA BROWNB: [id number] [place] [address] [facility] 09/25/2024 KARINA BROWNB: [place] [address]Gsr: (HP) Primary Insurance:EPIFANIO MELENDEZ INSCOPolicy Number: [id number] Date:3917-97-18Likh Name:[address] [address]OV: KARINA BROWNB: [id number] [place] [address]Pit: (HP) (WP) [facility] 09/19/2024 KARINA BROWNB: [place] [address]Ibk: (HP) Primary Insurance:[facility] INSCOPolicy Number: [id number] Date:2010-10-16Cnqu Name:[facility] [place] [address]DI: KARINA BROWNB: [id number] [place] [address]Ens: (HP) (WP) [facility] 09/13/2024 KARINA BROWNB: [place] [address]Dcp: (HP) Primary Insurance:[employer] CROSS INSCOPolicy Number: [id number] Date:3397-00-32Dgld Name:[place] [address]HA: KARINA BROWNB: [id number] [place] [address]Bnq: (HP) (WP) [facility] 09/13/2024 KARINA FERNANDOB: [place] [address]Jnu: (HP) Primary Insurance:[facility] BERTRAND MELENDEZ INSCOPolicy Number: [id number] Date:1480-15-81Cxof Name:[place] [address]XL: KARINA FERNANDOB: [id number] [place] [address]Goe: (HP) (WP) [facility] 09/02/2024 Primary Insurance:ANTH MEDICARE ADVANTAGE OPolicy Number: [id number] Date:6454-43-78Dpmc Name:Krunal FERNANDOTERRANCE: [id number] [place] [address] [facility] 05/31/2024 Primary Insurance:ANTH MEDICARE ADVANTAGE HMOPolicy Number: [id number] Date:6160-19-57Atzy Name:Krunal FERNANDOTERRANCE: [id number] [place] [address] [facility] 05/31/2024 Primary Insurance:ANTH MEDICARE ADVANTAGE HMOPolicy Number: [id number] Date:2657-68-08Ikur Name:Krunal BRUCE: [id number] [place], [place] [address] [place] [address]
--- OUTSIDE RECORDS SUMMARY | 2025-04-09 10:00 | XMS RPT_ITS ---
Author Name Auto Generated Organization OHIP Support Name Relationship Address Phone DIAZ CORDOVA Next of Kin Unknown [phone] CRYSTAL RODRIGUEZ Next of Kin Unknown [phone] DIAZ CORDOVA Next of Kin Unknown [phone] CRSYTAL RODRIGUEZ Next of Kin Unknown [phone] Care Team Providers Care Restoration Ecologist Name Role Phone TU HECTOR Primary Care Unavailable CAIN MEJIA Attending Unavailable CAIN MEJIA Admitting Unavailable TU HECTOR Primary Care Unavailable NONE, PCP Referring Unavailable ILEMILE WEBBER Attending Unavailable EMILE HORNE Admitting Unavailable TU HECTOR Primary Care Unavailable FORTUNE, SILVIO Referring Unavailable FORTUNE, SILVIO Attending Unavailable TU HECTOR Primary Care Unavailable FORTUNE, SILVIO Referring Unavailable FORTUNE, SILVIO Attending Unavailable FORTUNE, SILVIO Attending Unavailable TU HECTOR Primary Care Unavailable MAST, GIOVANNI Referring Unavailable JOSELYN TUCKER Attending Unavailable LEI, TU Primary Care Unavailable TU HECTOR Primary Care Unavailable FORTUNE, SILVIO Attending Unavailable RACHEL JOHNSON Attending Unava ilable LEI, TU Primary Care Unavailable DANNY IRIS Attending Unavailable LEI, TU Primary Care Unavailable LEI, TU Primary Care Unavailable RACHEL JOHNSON Attending Unava ilable SERGIO MOHR Referring Unavailable MAST ANIMAL CARETAKER-MANAGER PARKING, GIOVANNI Primary Care Unavailabl e MAST ANIMAL CARETAKER-MANAGER PARKING, GIOVANNI Attending Unavailabl e MAST ANIMAL CARETAKER-MANAGER PARKING, GIOVANNI Primary Care Unavailabl e MAST ANIMAL CARETAKER-MANAGER PARKING, GIOVANNI Attending Unavailabl e MAST ANIMAL CARETAKER-MANAGER PARKING, GIOVANNI Attending Unavailabl e LEI DO, TU Primary Care Unavailable MAST ANIMAL CARETAKER-MANAGER PARKING, GIOVANNI Attending Unavailabl e LEI DO, TU Primary Care Unavailable MAST ANIMAL CARETAKER-MANAGER PARKING, GIOVANNI Attending Unavailabl e LEI DO, TU Primary Care Unavailable MAST ANIMAL CARETAKER-MANAGER PARKING, GIOVANNI Attending Unavailabl e LEI DO, TU Primary Care Unavailable MAST ANIMAL CARETAKER-MANAGER PARKING, GIOVANNI Attending Unavailabl e MAST ANIMAL CARETAKER-MANAGER PARKING, GIOVANNI Primary Care Unavailabl e LEI DO, TU Primary Care Unavailable NOHEMY MYERS, DR JANNETH Browne Attending Kalyanivai ENID Nur MD Attending Unavailable LEI DO, TU Primary Care Unavailable PROBLEMS DATE TYPE CONDITION / CODE ATTENDING STATUS [facility] 04/02/2025 Admitting Diagnosis Hypokalemia / E87.6(ICD-10) MAST ANIMAL CARETAKER-MANAGER PARKING, GIOVANNI [facility] 11/24/2024 Unknown Displaced fractu re of distal phalanx of left thumb, initial encounter for closed fracture / S62.522A(ICD-10) ENID FORMAN MD [facility] 11/24/2024 Unknown Laceration witho ut foreign body of left thumb without damage to nail, initial encounter / S61.012A(ICD-10) JON FORMAN MDSSE [facility] 10/26/2024 Admitting Diagnosis Chronic kidney disease, stage 3a (HCC) / N18.31(ICD-10) JOSELYN TUCKER [facility] 10/26/2024 Admitting Diagnosis Nontoxic multinodular goiter / E04.2(ICD-10) JSOELYN TUCKER [facility] 10/03/2024 Admitting Diagnosis Other ill-defined heart diseases / I51.89(ICD-10) [facility] 10/24/2024 Admitting Diagnosis Malignant (primary) neoplasm, unspecified (HCC) / C80.1(ICD-10) [facility] 10/17/2024 Admitting Diagnosis Chronic obstructive pulmonary disease, unspecified (HCC) / J44.9(ICD-10) [place] Tao [facility] 10/17/2024 Admitting Diagnosis Other specified pleural conditions / J94.8(ICD-10) [facility] 10/05/2024 Admitting Diagnosis Other nonspecific abnormal finding of lung field / R91.8(ICD-10) JACKIE [facility] 10/05/2024 Admitting Diagnosis Enlarged lymph nodes, unspecified / R59.9(ICD-10) CAIN MEJIA [facility] 10/05/2024 Admitting Diagnosis Pleural effusion, not elsewhere classified / J90(ICD-10) EMILE HORNE [facility] 10/03/2024 Admitting Diagnosis Other pericardial effusion (noninflammatory) / I31.39(ICD-10) IRIS LUIS [facility] 10/03/2024 Admitting Diagnosis Emphysema, unspecified (HCC) / J43.9(ICD-10) [place] [facility] Admitting Diagnosis New Patient / 542() [facility] 09/13/2024 Admitting Diagnosis Essential (primary) hypertension / I10(ICD-10) MAST ANIMAL CARETAKER[facility] 09/13/2024 Admitting Diagnosis Dysphagia, unspecified / R13.10(ICD-10) MAST ANIMAL CARETAKER-[facility] 09/13/2024 Admitting Diagnosis Personal history of nicotine dependence / Z87.891(ICD-10) MAST ANIMAL CARETAKER-[facility] 05/31/2024 Active Acute cough / R05.1(ICD-10) NA Active To Clinic To PROCEDURES No Procedure Records Found RESULTS BMP Collected: 04/09/2025 10:03 AM Status: F Source: [facility] Order Comment: cc Dr Daniel TYPE CODE [...] mg/dL Performed By: #### GFR, BMP #### [address] [address] .GFR Collected: 10:03 AM Status: F Source: [facility] TYPE CODE TESTS RESULT OUT OF RANGE [...] results. Performed By: #### GFR, BMP #### [address] [address] BMP Collected: 04/02/2025 2:17 PM Status: F Source: [facility] Order Comment: cc Dr Daniel TYPE CODE [...] mg/dL Performed By: #### GFR, BMP #### [address] [address] .GFR Collected: 04/02/2025 2:17 PM Status: F Source: [facility] TYPE CODE TESTS RESULT OUT OF RANGE [...] results. Performed By: #### GFR, BMP #### [address] [address] K Collected: 03/12/2025 12:36 PM Status: F Source: [facility] TYPE CODE TESTS RESULT OUT OF RANGE REFERENCE UNITS LAB K(LOINC) Potassium Level 3.8 3.5-5.1 mmol/L Performed By: #### K #### [address] [place], [place] [address] XR FINGER THUMB 3 VIEWS LEFT Observed: 11/24/2024 2:46 PM Status: F Source: 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 She [...] daughter would like to establish with a fruit grading supervisor in [place]. Patient is monitoring her BP at home, and will call her daughter, ( who is at work now) if BP drops. She will contactthe video production coordinator to see if she can arrange Cardiology to see her tomorrow while at the infusion center. She will keep us updated. 36 Observed: 11/01/2024 3:44 PM Status: COMPLETED Source: [facility] Daughter called back she spo ke to oncologist and oncologist is more comfortable if we deal with this. 36 Observed: 11/01/2024 1:17 PM Status: COMPLETED Source: [facility] I spoke with daughter pt hav ing increase BOWMAN/ up 7 #s/b/l lower extremity edema after having 2 chemo treatments. Daughter states chemo staff said to call fruit grading supervisor. She is not sure if oncologist or his office is aware. I asked her to check with them first regarding the symptoms she is having. The care will be directed by them. She will call back after she makes sure the oncologist is aware. 36 Observed: 11/01/2024 11:13 AM Status: COMPLETED Source: [facility] Daughter calling pt is new t o chemo having second treatment today. She has gained 7# since yesterday. Chemo staff wanted pt to call fruit grading supervisor pt has edema in ankles. 36 Observed: 10/27/2024 2:17 PM Status: COMPLETED Source: [facility] Reviewed clinisync and confi rmed that patient ws able to establish with [facility] on 10/26/24. Beginning treatment 10/31/24. 36 Observed: 10/26/2024 2:52 PM Status: COMPLETED Source: [facility] Pt's Daughter, Diaz requsoraida ting POC device for he Mother. Explains her Mother has multiple Dr's appointments. Just today, her mother used 3 tanks. While working on TE, had contacted Pt's Daughter for more information , Diaz explained, She just talked to Adapte and decided to stick with tanks. PROGRESS NOTE Observed: 10/26/2024 10:20 AM Status: COMPLETED Source: [facility] . ENDOCRINOLOGY [address] [facility] [address] Dept: [phone] Dept Visit type: New patient Reason for [...] capsule by mouth daily., Disp: , Rfl: Osage-3 Fatty Acids (OMEGA 3 500 PO), Take [...] Observed: 10/26/2024 10:20 AM Status: COMPLETED Source: [facility] [id number] Karina Fernando [birth year] F Date Provider Department Center 10/26/2024 JOSELYN LR [facility] END None Family History Problem Relation Age of Onset Cancer Mother Cancer Father No Known Problems Sister No Known Problems Brother Heart disease Brother Family Status - Relation Status Age at Mother Father Sister Alive Brother Alive Brother Alive Level of Service:12240 [facility] OFFICE/OUTPATIENT NEW HIGH MDM 60 MINUTES Reason for Visit and Comments: New Patient [542] Thyroid Problem [110] - Thyroid nodule 36 Observed: 10/24/2024 11:26 AM Status: COMPLETED Source: [facility] Case reviewed - advanced sma ll cell lung cancer *The patient's OARRS report was obtained and reviewed.* 36 Observed: 10/24/2024 11:19 AM Status: COMPLETED Source: [facility] Per Dr. Fortune, pt needs a prescription sent for percocet 5/325mg, 1 tab Q6 hours PRN. 36 Observed: 10/24/2024 10:49 AM Status: COMPLETED Source: [facility] Received call from Alee Kicking Machine Operator at [facility]. Per Alee, they are aware patient now has oncology appt in [place], but they are tryoing to have her seen at [place] sooner. Right faxed MRI brain and PET reports to providers at [place] in case she returns to them for oncology care. Also requested images be pushed to provider. PROGRESS NOTE Observed: 10/24/2024 10:43 AM Status: COMPLETED Source: [facility] OARRS reviewed 36 Observed: 10/24/2024 9:54 AM Status: COMPLETED Source: [facility] Dr. Fortune discussed patien t with Dr. Worrlel. Expedited referral arranged, pt is scheduled to see Dr. Jerry on Wednesday10/27/24 at 0800. Pt and daughter are aware of appointment. PROGRESS NOTE Observed: 10/24/2024 9:30 AM Status: COMPLETED Source: [facility]ARD[facility]ORAC[facility] SURGERY [address] [place] [address] [address] [facility] [address] Dept: [phone] Dept Loc: [phone] Patient was identified and seen today via [...] stated that they are currently in the [facility]. If the patient is a minor, [...] etiology. Per note, pt had presented to [place] ED in August 2023 for dyspnea. CTA [...] for shortness of breath, then transferred to [facility] for ongoing care. An US guided thoracentesis [...] follow with her oncologist Dr. Chance in [place]. MRI brain on 10/17/24 was normal. PET [...] patient also completed a thyroid biopsy at [place] and pathology is still pending/unavailable. Pt is [...] capsule by mouth daily., Disp: , Rfl: Osage-3 Fatty Acids (OMEGA 3 500 PO), Take [...] TISSUE. Please see associated cytology specimen ([id number]). Cytology 10/09/24 Final Diagnosis A - Mediastinal [...] This note may have been dictated using myThings Practice Edition 2.6 and/or [employer] Jock Voice Recognition Feature. The document was proofread, however unrecognized voice recognition sap specialist errors may be present. PROGRESS NOTE Observed: 10/20/2024 2:00 PM Status: COMPLETED [facility] This patient has been referr ed to the oncology team. The staging PET scan should be addressed by the multidisciplinary team. Giving him the diagnosis and extent of disease, surgical resection is not indicated. 36 Observed: 10/19/2024 12:42 PM Status: COMPLETED Source: [facility]. Lacho Tillman placed the recommended referral to [facility] medical oncology. Navigator spoke directly with travel coordinator and medical oncology provider office and stressed urgency of appointment follow-up. audience coordinator and medical oncology discussed directly with oncologist at [facility]. They are unable to offer Karina an appointment sooner than previously scheduled with her [place] oncology team. Navigator apologized to family and recommended they keep previously scheduled [place] oncology appointment. Patient will see Dr. Dunham 11/01/24 per daughter. Records have been sent to [place] and PET and MRI will also be sent when reports are final. Family has navigator contact info and will call if they need assistance. 36 Observed: 10/18/2024 2:23 PM Status: COMPLETED Source: [facility] Pt daughter notified 36 Observed: 10/18/2024 1:23 PM Status: COMP LETED Source: [facility] Script sent 36 Observed: 10/18/2024 11:09 AM Status: COMPLETED Source: [facility] Please place referral for me dical oncology to [facility]. Navigator spoke with travel coordinator and medical oncology office. She will discuss with oncology providers tomorrow morning to stress the urgency of appointment and attempt to expedite appointment. If unable to get patient in sooner than [place], navigator will advise patient to keep previously scheduled oncology follow-up. Daughter notified. 36 Observed: 10/18/2024 8:33 AM Status: COMPLETED Source: [facility] Navigator received callback from patient's daughter Diaz. Patient's daughter reports that since we are able to expedite MRI and PET scan, oncology appointment has been moved up to 10/31/2024, but this is just tentative appointment as her oncology provider in [place] is out of town and may not be back until 11/06/2024. Daughter would like Dr. Lacho Tillman to review and is willing to transfer care for oncology to [facility] if pulmonary provider feels sooner oncology appointment for small cell is needed. 36 Observed: 10/18/2024 8:07 AM Status: COMPLETED Source: [facility] Pt daughter called and state s that pt is claustrophobic. Dr. Fortune ordered a PET scan which is scheduled on 10/20/24. She is requesting something to help with anxiety prior to scan. She states what she was given for MRI brain worked great. Pharmacy confirmed. Please advise. Previous prescription was Xanax 0.5 mg tablet. 36 Observed: 10/17/2024 2:10 PM Status: COMPLETED Source: [facility] Navigator contacted patient' s daughter by phone. They would like first available PET scan at any location. She is currently scheduled 10/30/24. Moved up PET scan appointment to Faxed records including path report, thoracentesis report, thoracic conference recommendations, CTS and pulmonary and cardiology consults to patient's regular oncologist, Dr. Dunham and digital experience manager Rhiannon Georges in [place]. Patient has medical oncology appointment 11/06/24 but will try to move appointment sooner after PET scan. Navigator will send PET and MRI reports to providers once final . PROGRESS NOTE Observed: 10/17/2024 11:30 AM Status: COMPLETED Source: [facility], Pulmonary Critical [facility] [address] [place] [id number] Pulmonary Patient Visit 10/17/2024 Referring Physician: TU HECTOR DO Reason for Referral: SOB 10/03/24 History of Present Illness Karina Fernando is a 73 y.o. F with history of recurrent sinus infections, COPD on symbicort/albuterol, HTN who presented for a left hilar mass. Stated that in May she began having shortness of breath which worsened until she went to the ER in [place] in August. Found on CT with a left hilar mass, left upper lobe pleural-based mass, and moderate pericardial effusion. Evaluated by oncology and recommended for PET/CT, MRI brain, and biopsy. Established with pulmonology and had been planned for EBUS in [place] but canceled after TTE demonstrated a right [...] Previously normal 10/17/24 Patient was hospitalized in [place] ER for worsening pain and shortness of breath, unchanged. Transferred to [facility]. S/p bronchoscopy 10/09/[address] Mejia. Reported [...] Dose Status acetaminophen (Tylenol) 325 MG tablet [id number] Take 2 tablets (650 mg) by mouth every 6 hours as needed for mild pain (1-3) or fever (For temp greater than 100.4 F (38 C)) for up to 10 days. Patient not taking: Reported on 10/09/2024 Emile Horne DO 10/16/24 2359 albuterol (Ventolin HFA) 108 (90 Base) MCG/ACT inhaler [id number] Yes Inhale 2 puffs every 4 hours as needed for wheezing or shortness of breath. Rachel Johnson DO Active ALPRAZolam (Xanax) 0.5 MG tablet [id number] Take 1 tablet (0.5 mg) by mouth 1 time for 1 dose. Take 30 minutes prior to MRI Lisandra Aldridge, NEGIN - MANAGER PARKING 10/10/24 2359 Discontinued 10/17/24 1119 budesonide-formoterol (Symbicort) 80-4.5 MCG/ACT inhaler [id number] Inhale 2 puffs 2 times daily. Rachel Johnson DO Active busPIRone (Buspar) 10 MG tablet [id number] Yes Take 10 mg by mouth 3 times daily as needed. Historical ProviderMD Active cholecalciferol (Vitamin D-3) 25 MCG (1000 UT) capsule [id number] Yes Take 1,000 Units by mouth daily. Historical Provider, Active ipratropium-albuterol (Duo-Neb) 0.5-2.5 mg/3 mL nebulizer solution [id number] Yes Take 3 mL by nebulization every 6 hours. Historical Provider, Active loratadine (Claritin) 5 MG chewable tablet [id number] Yes Chew 5 mg daily. Historical Provider, Active Melatonin 2.5 MG chewable tablet [id number] Yes Chew Daily as needed. Historical ProviderMD Active Multiple Vitamin (multivitamin) capsule [id number] Yes Take 1 capsule by mouth daily. Historical Provider, Active Osage-3 Fatty Acids (OMEGA 3 500 PO) [id number] Yes Take by mouth daily. Historical Provider, Active oxyCODONE-acetaminophen (Percocet) 7.5-325 MG tablet [id number] Take 1 tablet by mouth every 6 hours as needed for moderate pain (4-6) for up to 5 days. Emile Horne, DO 10/11/24 2359 traZODone (Desyrel) 100 MG tablet [id number] Yes Take 100 mg by mouth Nightly. Historical Provider, Active valACYclovir (Valtrex) 500 MG tablet [id number] Yes Take by mouth daily. Historical Provider, Active Vitamin E 268 MG (400 UNIT) capsule [id number] Yes Take by mouth daily. Historical Provider, [...] Follow up: Patient will follow-up with her digital experience manager and oncologist in [place] Please seek immediate medical attention for any [...] YOUR APPOINTMENT TODAY WAS [facility] [place] [facility] LUNG NODULE CLINIC, COPD CLINIC, PULMONARY AND SLEEP MEDICINE OFFICE. PLEASE CALL OUR OFFICE AT [phone] IF YOU HAVE NOT RECEIVED YOUR TEST [...] to make improvements. COVID-19 VACCINATION INFORMATION: PH. [phone] [facility]/CORONAVIRUS/VACCINE [facility] Central Scheduling [phone] [facility] Sleep Scheduling [phone] OFFICE VISIT Observed: 10/17/2024 11:30 AM Status: COMPLETED Source: [facility] [id number] Karina Fernando [birth year] F Date Provider Department Center 10/17/2024 [id number], C*[facility] PUL None Family History Problem Relation Age of Onset Cancer Mother Cancer Father No Known Problems Sister No Known Problems Brother Heart disease Brother Family Status - Relation Status Age at Mother Father Sister Alive Brother Alive Brother Alive Level of Service:76265 [place] OFFICE/OUTPATIENT ESTABLISHED MOD MDM 30 MIN Reason for Visit and Comments: Follow-up [[id number]] PROGRESS NOTE Observed: 10/17/2024 9:13 AM Status: COMPLETED Source: [facility] THORACIC ONCOLOGY AND LUNG N ODULE TUMOR [...] do recommendations for maria, CTC: SK MR#/Epic [id number] Oncologist: Dr. Mauri Chance ([place]) CTAP: /Age [birth year] 73 yo Rad Oncologist MRI: 10/17/24 Gender Female Art Teacher: Dr. Lacho Tillman/ [facility] PET: 10/30/24 Smoking History: ? Former 40 pk yr Quit 05/2024 PCP: Dr. Tu Hector PFT: 09/25/24 @ [facility] ?Prospective []Retrospective Fitness Studies Teacher: Dr. Luis PATH: EBUS/TBBX 10/09/24; US Thora 10/06/24; Thyroid bx- [place] 10/10/24 (path pending) Clinical Stage: unable to stage : @ least N2 dz Path Stage: T N M Barium Swallow 10/06/24 Brief Summary Known COPD was seen in ED at [place] for eval of worsening SOB, Left shoulder, back, and lung pain, and dizziness. CT in [place] noted a left hilar mass, LEYLA mass and adenopathy, R atrial mass, pericardial effusion and thyroid nodules. Evaluated by [place] med onc and recommended to have PET, MRI and biopsy. Sent to [facility] CTS and arranged same day urgent appts with pulmonary and cardiology. Sent for EBUS and now presents to review imaging, path, staging and plan of care. * Also completed thyroid bx @ [place] and path results are pending Recommendations: 1. [...] treatment plan may differ from this recommendation. [id number] Observed: 10/12/2024 9:57 AM Status: COMPLETED Source: [facility] Patient: Karina Fernando Procedure Summary Date: 10/09/24 Room / Location: [place] [address] / [facility] Gastroenterology Anesthesia Start: 1439 Anesthesia Stop: 1542 [...] Observed: 10/12/2024 9:56 AM Status: COMPLETED Source: [facility] Patient: Karina Fernando Procedure Summary Date: 10/09/24 Room / Location: [place] [address] / [facility] Gastroenterology Anesthesia Start: 1439 Anesthesia Stop: 1542 [...] Observed: 10/11/2024 11:12 AM Status: COMPLETED Source: [facility] Pt daughter notified. Confir med with pharmacy that prescription is ready for pickup. 36 Observed: 10/10/2024 3:10 PM Status: COMPLETED Source: [facility] Script sent for 1 time dose prior to MRI- please notify patient 36 Observed: 10/10/2024 2:41 PM Status: COMPLETED Source: [facility] Pt called and states she is claustrophobic. Dr. Fortune ordered an MRI brain which is scheduled on 10/17/24. Pt is requesting something to help with anxiety prior to scan. Pharmacy confirmed. Please advise. FUNGAL CULTURE Observed: 10/09/2024 3:34 PM Status: F Source: [facility] FUNGAL CULTURE Reference No fungus isolated after 21 days [ S = SUSCEPTIBLE R = RESISTANT I = INTERMEDIATE S-DD = Susceptible-dose dependent NS = Non-susceptible NO = No Interpretation ] Performed By: #### [id number] # ### Batch Unloader: GUERDA WEBBER ([id number]) [facility] ([facility]) [address] [place] [address] RESPIRATORY CULTURE AND STAIN Observed: 10/09/2024 3:34 PM Status: F Source: [facility] RESPIRATORY CULTURE Referen ce Rare respiratory deng present. STENOTROPHOMONAS MALTOPHILIA Rare [...] = No Interpretation ] Performed By: #### [id number], [id number] #### Batch Unloader: GUERDA WEBBER ([id number]) [facility] ([facility]) [address] [place] [address] FUNGAL STAIN Observed: 10/09/2024 3:34 PM Status: F Source: [facility] FUNGAL STAIN Reference No fungal elements seen ORDER COMMENTS: Reference Range: No fungal elements seen [ S = SUSCEPTIBLE R = RESISTANT I = INTERMEDIATE S-DD = Susceptible-dose dependent NS = Non-susceptible NO = No Interpretation ] Performed By: #### [id number], L [id number] #### Batch Unloader: GUERDA WEBBER ([id number]) [facility] ([facility]) [address] [place] [address] AFB CULTURE Observed: 10/09/2024 3:34 PM Status: F Source: [facility] AFB CULTURE Reference No growth at 6 weeks AFB STAIN Reference No acid fast bacilli seen by fluorescent microscopy ORDER COMMENTS: Stain Reference Range: No acid fast bacilli seen by fluorescent microscopy. [ S = SUSCEPTIBLE R = RESISTANT I = INTERMEDIATE S-DD = Susceptible-dose dependent NS = Non-susceptible NO = No Interpretation ] Performed By: #### [id number] ## ## Batch Unloader: GUERDA WEBBER ([id number]) [facility]) [address] [place] [address] FINE NEEDLE ASPIRATION Collected: 10/09/2024 3:03 PM Status: F Source: [facility] TYPE CODE TESTS RESULT OUT OF RANGE REFERENCE UNITS PATHOLOGY 1499 LAB AP CASE REPORT Result Comment: Fine Needle Aspiration, Cytology Case: [id number] Authorizing Provider: Cain Mejia MD Collected: 10/09/2024 1503 Ordering Location: [facility] Endoscopy Received: 10/09/2024 1601 Pathologist: Josselin Garcia [...] see p pepe's concurrent surgical pathology specimen ([id number]) for additional information. ADDITIONAL SURGICAL CASES EXIST FOR THIS SAME DATE OF SERVICE PATHOLOGY [id number] LAB AP CYTO INTRAOPERATIVE CONSULTATION Result Comment: Part A: Pass 1 - rare lymphocytes present. Pass 2 - lymphocytes present. Part B: Pass 1 - lymphocytes present. Part C: Pass 1 - blood. Part D: Pass 1 - adequate. Part E: Pass 1 - adequate. Onsite interpretation by Dr. Garcia. PATHOLOGY [id number] LAB AP GROSS DESCRIPTION Result Comment: A [...] characteristics determined by the clinical laboratories of [facility]. They have not been cleared by [...] of false negativity on decalcified specimens. PATHOLOGY [id number] AP CASE SCREENING LOCATION [facility], [address] [address]; CLIA: [id number]; Joint Commission: HCO [id number]; CAP: [id number] PATHOLOGY [id number] AP CASE PATHOLOGIST INTERP LOCATION [facility], [address] [address]; CLIA: [id number]; Joint Commission: HCO [id number]; CAP: [id number] PATHOLOGY EMBDOC OUTGOING CLINICAL RESULTS EMBEDDED DOCUMENT Performed By: #### [id number] ## ## Batch Unloader: JOSSELIN GARCIA ([id number]) [facility] [address] TISSUE EXAM Collected: 2:55 PM Status: F Source: [facility] TYPE CODE TESTS RESULT OUT OF RANGE REFERENCE UNITS PATHOLOGY 1499 LAB AP CASE REPORT Result Comment: Surgical Pat hology Case: [id number] Authorizing Provider: Cain Mejia MD Collected: 10/09/2024 1455 Ordering Location: [facility] Endoscopy Received: 10/09/2024 1551 Pathologist: Richard Mckeon MD Specimen: Lung, Right [...] INFORMATION Hilar mass, Adenopathy, Lung mass PATHOLOGY [id number] LAB AP HISTO GROSS DESCRIPTION Received in [...] characteristics determined by the clinical laboratories of [facility]. They have not been cleared by [...] of false negativity on decalcified specimens. PATHOLOGY 642312 AP CASE PATHOLOGIST INTERP LOCATION [facility], [address] [place] [address], CLIA: [id number]; Joint Commission: HCO [id number]; CAP: [id number] PATHOLOGY EMBDOC OUTGOING CLINICAL RESULTS EMBEDDED DOCUMENT Performed By: #### [id number] # ### Batch Unloader: GUERDA WEBBER ([id number]) [facility] ([facility]) [address] [place] [address] PROCEDURE NOTE Observed: 10/09/2024 2:51 PM Status: COMPLETED Source: [facility] Airway Date/Time: 10/09/2024 2:43 PM Urgency: scheduled Airway not difficult General Information and Staff Patient location during procedure: Procedural Resident/DRY HEAT CABINET ATTENDANT: Mello Schneider CRNA Performed: DRY HEAT CABINET ATTENDANT Indications and Patient Condition Indications for airway [...] Observed: 10/09/2024 2:23 PM Status: COMPLETED [facility] Name: Karina Fernando Procedure Date: 10/09/2024 2:23 PM Gender: Female Date of : 1950 Age: 73 Admit Type: Outpatient Note Status: Finalized Attending MD: Cain Mejia MD, [id number] Procedure: Bronchoscopy Indications: Left hilar mass Findings: [...] and in the left hilum using a [employer] Expect 25 gauge needle and sent for [...] loss: Minimal Procedure Code(s): --- Professional --- 92091, Bronchoscopy, rigid or flexible, including fluoroscopic guidance, when performed; with transbronchial needle aspiration biopsy(s), trachea, main stem and/or lobar bronchus(i) 56038, 59, Bronchoscopy, rigid or flexible, including fluoroscopic guidance, when performed; with bronchial or endobronchial biopsy(s), single or multiple sites 09177, Bronchoscopy, rigid or flexible, including fluoroscopic guidance, when performed; with bronchial alveolar lavage 09818, Bronchoscopy, rigid or flexible, including fluoroscopic guidance, when performed; with brushing or protected brushings 94551, Bronchoscopy, rigid or flexible, including fluoroscopic guidance, when performed; with transendoscopic endobronchial ultrasound (EBUS) during bronchoscopic diagnostic or therapeutic intervention(s) for peripheral lesion(s) (List separately in addition to code for primary procedure[s]) Diagnosis Code(s): --- Professional --- R91.8, Other nonspecific abnormal finding of lung field J98.4, Other disorders of lung J98.09, Other diseases of bronchus, not elsewhere classified R04.2, Hemoptysis CPT copyright 2021 [employer]. All rights reserved. The codes documented in this report are preliminary and upon medical biller/coder review may be revised to meet current compliance requirements. Attending Participation: I personally performed the entire procedure. Cain Mejia MD 10/09/2024 3:46:37 PM This report has been signed electronically. Number of Addenda: 0 Note Initiated On: 10/09/2024 2:23 PM HISTORY AND PHYSICAL NOTE Observed: 09/17 2:11 PM Status: COMPLETED Source: [facility] Chief Complaint: left hilar mass History of [...] Observed: 10/09/2024 1:37 PM Status: COMPLETED Source: [facility] Patient: Karina Fernando Procedure Information Date/Time: 10/09/24 1330 Procedure: ENDOBRONCHIAL ULTRASOUND WITH TRANSBRONCHIAL NEEDLE ASPIRATION. POSSIBLE ENDOBRONCHIAL BIOPSIES, NEEDLE ASPIRATION, AND BRUSHINGS. - Rad, path, total time: 90 min Location: [place] [address] / [facility] Gastroenterology Providers: Cain Mejia MD Relevant Problems [...] Observed: 10/09/2024 9:01 AM Status: COMPLETED Source: [facility] Tarsoraidaa notified. 30 Observed: 10/06/2024 5:09 PM Status: COMPLETED [facility] Patient discharged Problem: Pain - Adult [...] Observed: 2024 3:55 PM Status: F Source: [facility] Patient Name: KARINA FERNANDO : 1950 [id number] Exam Date/Time: 10/06/2024 08:32 Procedure: US GUIDED [...] Observed: 10/06/2024 3:30 PM Status: COMPLETED Source: [facility] RTHOMEO2[[id number]] Respiratory Therapy Home O2 Progress Note O2 [...] Observed: 10/06/2024 3:09 PM Status: COMPLETED Source: [facility] Hospitalist Discharge Summar y Karina Fernando : [...] and other work up. She presented to [facility] ED - with worsening left shoulder, back [...] and was sent in for management to [facility]. Seen by pulm. Pleural effusion was too [...] Your Medications These medications were sent to [facility] [address] [place] [address] Hours: Wednesday to Wednesday 10 am to 6 pm oxyCODONE-acetaminophen 7.5-325 MG tablet You can get these medications from any pharmacy You don't need a prescription for these medications acetaminophen 325 MG tablet Recommended Follow-up: Tu Hector DO [address] [place] [address] PHYSICIANS [facility] [phone] Follow up in 1 week(s) Complexity of Follow up: [] Moderate Complexity: follow up within 7-14 calendar days (88292) [x] Severe Complexity: follow up within 7 calendar days (60734) Follow up Testing, Pending results or Referrals [...] DO Division of Hospital Medicine Inpatient Medical Services/[facility] 10/06/2024, 3:09 PM PROGRESS NOTE Observed: 10/06/2024 3:06 PM Status: COMPLETED Source: [facility] Patient chart is reviewed. Edwin avelar. Full note to follow. [id number] Observed: 10/06/2024 12:55 PM Status: COMPLETED Source: [facility] Pt adm for tx/ eval of SOB- found to have pleural effusion. RA currently. US guided thoracentesis, XR chest and barium swallow completed. Spoke with pt and family, introduced self and roll. Pt plans to return home- no needs. RESS NOTE Observed: 10/06/2024 12:39 PM Status: COMPLETED [facility] PHYSICAL THERAPY [facility] Initial Evaluation Name/MRN: Karina Fernando ([id number]) Evaluation Date: 10/06/2024 Date of : 1950 Admission Date: 10/05/2024 8:10 PM Age: 73 y.o. [facility]: [facility] A Discharge Recommendation: Home with Home health PT Assessment IMPRESSION: Karina is a 73 y.o. female with past medical history of COPD previous smoker, asthma, Hiatal hernia, Recent discovery of lung mass and thyroid nodules. 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 As pt becomes more fatigued CONDUIT CLEANER provided due to increased lateral sway. Verbal [...] of Care supervision is transferred to a [facility] Physical Therapist. Goals and/or treatment plan was established in collaboration with patient/family/other representatives. XR CHEST 2 VIEWS Observed: 10/06/2024 10:43 AM Status: F Source: [facility] Patient Name: KARINA FERNANDO : 1950 Exam [...] Observed: 10/06/2024 9:30 AM Status: F Source: [facility] Patient Name: KARINA FERNANDO : 1950 Exam [...] Observed: 10/06/2024 8:59 AM Status: COMPLETED Source: [facility] Pulmonary Medicine [address] [place] [address] Patient - Karina Fernando - 1950 Date of Admission - 10/05/2024 8:10 PM Date of Evaluation - 10/06/2024 Room - [facility] A Hospital Day - 1 Consulting [...] She presented to the emergency department at [facility] with worsening left shoulder, back, lung pain and lightheadedness when standing. Reportedly, she had also been experiencing voice changes and difficulty swallowing both liquids and solids with some swelling since February 2024. She is also been experiencing worsening headache, sensation of vertigo, ringing in her left ear, sensation of falling to the left side. At the [facility] emergency department, she underwent a chest x-ray which demonstrated a large left-sided pleural effusion and so was sent for management to the [facility]. When I examined her this morning, [...] for a previous hospital admission at the [facility] afebrile [address] [...] Multiple Vitamin (multivitamin) capsule 1 capsule, Daily Osage-3 Fatty Acids (OMEGA 3 500 PO) Daily [...] Observed: 10/06/2024 8:44 AM Status: COMPLETED [facility] Patient arrived to radiology department [...] Observed: 10/06/2024 8:43 AM Status: COMPLETED Source: [facility] Speech-Language Pathology SPEECH LANGUAGE PATHOLOGY [facility] Modified Barium Swallow Study Patient Name: Karina Fernando Evaluation Date: 10/06/2024 Date of : 1950 Admission Date: 10/05/2024 8:10 PM Age: 73 y.o. Room/Bed: [facility] A IMPRESSION: The patient presents with [...] contrast enters the airway. No further skilled TIRE ADJUSTER indicated at this time. Please reconsult should [...] and other work up. She presented to [facility] ED - with worsening left shoulder, back [...] and was sent in for management to [facility]. She has a history of hiatal hernia [...] Unable to obtain labs and imaging from [facility] - Was told she has a complete [...] Goal: To have some coffee Therapy Time TIRE ADJUSTER Individual Minutes Time In: 0840 Time Out: 0900 Minutes: 20 Charis Barron, CCC-TIRE ADJUSTER COMPREHENSIVE METABOLIC PANEL Collected: 10/06/2024 4 :39 AM Status: F Source: [facility] TYPE CODE TESTS RESULT OUT OF RANGE REFERENCE UNITS LAB [id number] SODIUM 141 136-145 mmol/L LAB 7859027 POTASSIUM 3.3 Low 3.5-5.1 mmol/L Result Comment: Plasma potas sium values may be up to 0.5 mmol/L lower than serum values. LAB 4797843 CHLORIDE 106 98-107 mmol/L LAB 4207641 CARBON DIOXIDE 27 23-31 mmol/L LAB [id number] ANION GAP (GOLD, CALCULATED) 8 3-13 mmol/L LAB 0936181 UREA NITROGEN 8 Low 9-23 mg/dL LAB 0875789 CREATININE 0.83 0.57-1.11 mg/dL LAB 6750955 GLUCOSE 92 82-115 mg/dL LAB 6907593 CALCIUM 9.0 8.8-10.0 mg/dL LAB 6769398 AST (SGOT) 17 <34 U/L LAB 0415318 ALT 9 <30 U/L LAB 4393887 ALKALINE PHOSPHATASE 45 40-150 U/L LAB 9005199 ALBUMIN 3.0 Low 3.4-4.8 g/dL LAB 7732004 BILIRUBIN, TOTAL 0.3 <1.2 mg/dL LAB 0927501 TOTAL PROTEIN 6.2 Low 6.4-8.3 g/dL LAB 0135097 GLOMERULAR FILTRATION RATE ML/MIN/1.73 SQ M.PREDICTED 75.0 >60.0 mL/min/1. 73m*2 Result Comment: Calculation based on the Chronic Kidney Disease Epidemiology Collaboration (CKD-EPI) equation refit without adjustment for race Performed By: #### [id number], L AB17 #### Batch Unloader: GUERDA WEBBER ([id number]) [facility] ([address] MAGNESIUM Collected: 4:39 AM Status: F Source: [facility] TYPE CODE TESTS RESULT OUT OF RANGE REFERENCE UNITS LAB 0763220 MAGNESIUM 1.9 1.6-2.6 mg/dL Result Comment: ORDER COMMEN TS: Higher values can be expected in females during menses. Performed By: #### [id number], L AB17 #### Batch Unloader: GUERDA WEBBER ([id number]) [facility] ([facility] [address] [place] [address] CBC WITH AUTO DIFFERENTIAL Collected: 10/06/2024 4:39 AM Status: F Source: [facility] TYPE CODE TESTS RESULT OUT OF RANGE REFERENCE UNITS LAB 8149341 WBC 3.5 Low 3.6-10.7 10*3/uL LAB 8541457 RBC 4.25 3.80-5.20 10*6/uL LAB 2202866 HEMOGLOBIN 11.0 Low 11.7-16.0 g/dL LAB 9354145 HEMATOCRIT 34.4 Low 35.0-47.0 % LAB 0279951 MCV 80.9 77.0-99.0 fL LAB 0636615 MCH 25.9 Low 26.0-34.0 pg LAB 7853986 MCHC 32.0 30.5-36.0 % LAB 9014518 RDW 18.8 High 11.5-15.0 % LAB 9000375 PLATELET COUNT 226 140-440 10*3/uL LAB 0688258 MPV 8.9 Low 9.0-12.7 fL LAB 254 NRBC 0.0 0.0-2.0 /100 WBCs LAB 4045174 NEUTROPHILS RELATIVE 61.9 38.0-82.0 % LAB 7826492 LYMPHOCYTES RELATIVE 20.2 15.0-45.0 % LAB 5037680 MONOCYTES RELATIVE 16.4 High 5.0-13.0 % LAB 4843132 EOSINOPHILS RELATIVE 0.6 0.0-6.0 % LAB 9569276 BASOPHILS RELATIVE 0.6 0.0-2.0 % LAB 0482615 IMMATURE GRANS % 0.3 0.0-2.0 % LAB 2398650 NEUTROPHILS ABSOLUTE 2.2 1.8-7.5 10*3/uL LAB 4445518 LYMPHOCYTES ABSOLUTE 0.7 Low 1.0-4.3 10*3/uL LAB 3568136 MONOCYTES ABSOLUTE 0.6 0.0-0.9 10*3/uL LAB 1013876 EOSINOPHILS ABSOLUTE 0.0 0.0-0.5 10*3/uL LAB 4116048 BASOPHILS ABSOLUTE 0.0 0.0-0.2 10*3/uL LAB 563719 IMMATURE GRANS ABSOLUTE 0.0 <0.1 10*3/uL Performed By: #### [id number] # ### Batch Unloader: GUERDA WEBBER ([id number]) [facility] ([facility]) [address] [place] [address] 30 Observed: 10/06/2024 1:01 AM Status: COMPLETED Source: [facility] Problem: Pain - Adult Goal: Verbalizes/displays adequate comfort level or baseline comfort level Outcome: ProgressingProblem: Safety - Adult Goal: Free from fall injury Outcome: Progressing HISTORY AND PHYSICAL NOTE Observed: 09/17 9:39 PM Status: COMPLETED Source: [facility] Attending History and Physic al Admit Date: [...] and other work up. She presented to [facility] ED - with worsening left shoulder, back [...] and was sent in for management to [facility]. She has a history of hiatal hernia [...] Unable to obtain labs and imaging from [facility] - Was told she has a complete [...] capsule Take 1,000 Units by mouth daily. Suyxdxsckdq-Yvhcipmaa-Mzgcta (Trelegy Ellipta) 100-62.5-25 MCG/ACT aerosol powder Inhale [...] capsule Take 1 capsule by mouth daily. Osage-3 Fatty Acids (OMEGA 3 500 PO) Take [...] suspicion of a metastatic process. Will need TIRE ADJUSTER and MBSS for assessment. - Lightheadedness upon [...] as no imaging on file given at [facility]. Follow up labs with day team. Thyroid [...] Pending the following - s/p pulmonology and TIRE ADJUSTER evaluation Total time spent (which include face [...] - DO NOT do CPR, intubation] [_] [DNR-CUSTOMER ACCOUNT COORDINATOR - Comfort care only] [_] DNR form [...] Sushila Tam MD Division of Hospitalist Medicine [facility] 36 Observed: 10/05/2024 4:00 PM Status: COMPLETED [facility]. Told by the Dr her Mother isn't leaving anytime soon. Her Mother had a CXR and her L lung was completely white. They are now waiting on CT results. Her Mother will eventually be transferred over to [facility] when a bed opens. Explains Her Mother wants back on Symbicort. 36 Observed: 10/05/2024 1:52 PM Status: COMPLETED Source: [facility] Patient is active with Brenda PENDLETON and ALEXUS for EBUS/ENB 99223/18930 per code check 36 Observed: 10/05/2024 1:22 PM Status: COMPLETED Source: [facility] notified. Said She i s going to take her Mom to the ER here shortly.Needs to discuss with her Mother what to do with the Symbicort and will let us know. 36 Observed: 10/05/2024 1:10 PM Status: COMPLETED Source: [facility] Instructions EBUS Endobronchial Ultrasound Procedure Date: October 09, 2024 Time: 1:30 PM Arrival Time: 12:00 PM Physician: Dr. Mejia Location: [facility], Endoscopy Department, [address] [place], [place] [id number] Please arrive at the hospital registration desk 1.5 hours prior to scheduled start of procedure. Make sure you have a known responsible adult to transport you home from the hospital as you will not be permitted to drive. Your procedure will be cancelled if you do not have someone to take you home. You can only use a taxi/bus/Uber/medical transportation analyst if you have a known responsible adult to go with you. You may use [employer]. Each patient will receive one validation ticket for [employer]. Do not drink alcohol before or [...] at 11:[address] Johnson at [address] [place] [address], [phone] to discuss results. Things to look for [...] If you have any questions, please call: [phone] RN Clinical Coordinator [facility] Pulmonary Medicine [address] [place] [address], [address] [place], [place] [id number] Procedure placed on physician's outlook calendar? yes [...] Observed: 10/05/2024 8:49 AM Status: COMPLETED Source: [facility] Chief complaint/symptom: Pt' s Daughter, Diaz explains [...] compromised to dial 911 prior to advisement. [id number] Observed: 10/05/2024 8:23 AM Status: COMPLETED Source: [facility] PA place to find out Formula ry alternative. 36 Observed: 10/03/2024 3:12 PM Status: COMPLETED Source: [facility] Navigator contacted the offi ce of Rhiannon Georges CNP at [facility]. Requested pulmonary function test and will scanned to media tab when available. PROGRESS NOTE Observed: 10/03/2024 2:30 PM Status: COMPLETED Source: [facility] Cardiology Note DATE of SERVICE:10/03/24 TIME of SERVICE: 2:41 PM Chief Complaint: Chief Complaint Patient presents with New Patient Shortness of Breath >1yr History of PresentIllness: Karina Fernando is a 73 y.o. female with a long history of tobacco use who was evaluated for shortness of breath. The workup in [facility] revealed a very large (6.2 x 4.7 cm) hilar mass. She was seen by pulmonary and scheduled for a biopsy also seen by Dr. Fortune. In the meantime however an echocardiogram that was done at [facility] reported a small pericardial effusion and a mass on the patient's right intra-atrial septum. Her biopsy was canceled and she was referred here to cardiology for an evaluation. I reviewed the echocardiogram that was done at [place], there is a very small hemodynamically insignificant [...] Units by mouth daily., Disp: , Rfl: Nxrawazjhju-Kvepixnqb-Dveqey (Trelegy Ellipta) 100-62.5-25 MCG/ACT aerosol powder , [...] capsule by mouth daily., Disp: , Rfl: Osage-3 Fatty Acids (OMEGA 3 500 PO), Take [...] pericardial effusion with RA collapse. 09/13/24- [facility] Assessment and Plan: BSmall hemodynamically insignificant [...] Observed: 10/03/2024 2:30 PM Status: COMPLETED Source: [facility] [id number] Karina Fernando [birth year] F Date Provider Department Center 10/03/2024 [id number] LUIS [facility] JERAMIE SHMGCV [address] Family History Problem Relation Age of Onset Cancer Mother Cancer Father No Known Problems Sister No Known Problems Brother Heart disease Brother Family Status - Relation Status Age at Mother Father Sister Alive Brother Alive Brother Alive Level of Service:73587 [facility] OFFICE/OUTPATIENT NEW MODERATE MDM 45 MINUTES Reason for Visit and Comments: New Patient [542] Shortness of Breath [710464] - >1yr 36 Observed: 10/03/2024 1:27 PM Status: COMPLETED [facility] Discussed with Dr. Indu can during [facility] appt. Patient has a pericardial effusion and cardiac lesion. She has been lightheaded for a few days and expedited cardiology eval is recommended. Spoke with cardiology office at [phone] and arranged for appt with Dr. Luis at [address] [facility] [address] Johnson will send patient right over. 36 Observed: 10/03/2024 12:19 PM Status: COMPLETED Source: [facility] Navigator received request f [facility] cardiothoracic surgery office to assist with expediting lung nodule clinic evaluation. Patient lives far away and [facility] is hoping patient can be seen while on campus. Patient was seen by Dr. Silvio Fortune this morning and needs pulmonary evaluation prior to surgical consideration. Verified prior images and reports from [facility] are available for review in PACS. Scanned imaging reports including CT chest imaging, thyroid imaging and provider office notes from medical oncology and pulmonary in [facility] to the media tab. Patient will see Dr. Lacho Tillman now to further evaluate left hilar mass and adenopathy first noted on CT imaging 09/13/2024 in [facility]. 37 Observed: 10/03/2024 12:15 PM Status: COMPLETED Source: [facility] YOUR APPOINTMENT TODAY WAS W [place] [facility] LUNG NODULE CLINIC, COPD CLINIC, PULMONARY AND SLEEP MEDICINE OFFICE. PLEASE CALL OUR OFFICE AT [phone] IF YOU HAVE NOT RECEIVED YOUR TEST [...] to make improvements. COVID-19 VACCINATION INFORMATION: PH. [phone] HEALTH[facility]ORG/CORONAVIRUS/VACCINE [facility] Central Scheduling [phone] [facility] Sleep Scheduling [phone] PROGRESS NOTE Observed: 10/03/2024 12:15 PM Status: COMPLETED Source: [facility], Pulmonary Critical Car e Medicine [address] [place], [place] [phone] Pulmonary Patient Visit - New 10/03/2024 Referring Physician: TU HECTOR DO Reason for Referral: SOB History of Present Illness Karina Fernando is a 73 y.o. F with history of recurrent sinus infections, COPD on symbicort/albuterol, HTN who presented for a left hilar mass. Stated that in May she began having shortness of breath which worsened until she went to the ER in [place] in August. Found on CT with a left hilar mass, left upper lobe pleural-based mass, and moderate pericardial effusion. Evaluated by oncology and recommended for PET/CT, MRI brain, and biopsy. Established with pulmonology and had been planned for EBUS in [place] but canceled after TTE demonstrated a right [...] Medication Documentation Review Audit Reviewed by Rachel Jonhson DO (Physician) on 10/03/24 at 1703 Medication Order Taking? Sig Documenting Provider Last Dose Status acetaminophen (Tylenol Extra Strength) 500 MG tablet [id number] Yes Take by mouth. Slick Garcia MD Not Taking Active albuterol (Ventolin HFA) 108 (90 Base) MCG/ACT inhaler [id number] Inhale 2 puffs every 4 hours as needed for wheezing or shortness of breath. Rachel Johnson DO Active busPIRone (Buspar) 10 MG tablet [id number] Yes Take 10 mg by mouth 3 times daily as needed. Slick Garcia MD Taking Active cetirizine (ZyrTEC) 10 MG tablet [id number] Yes Take 10 mg by mouth daily. Slick ProviderMD Taking Active cholecalciferol (Vitamin D-3) 25 MCG (1000 UT) capsule [id number] Yes Take 1,000 Units by mouth daily. Historical ProviderMD Active Hhwkycqnwsi-Sznczbrye-Vfrmvn (Trelegy Ellipta) 100-62.5-25 MCG/ACT aerosol powder [id number] Inhale 1 Inhalation daily. Rachel Johnson, Active gabapentin (Neurontin) 300 MG capsule [id number] Yes Take 300 mg by mouth 3 times daily. Slick ProviderMD Not Taking Active hydroCHLOROthiazide (HYDRODiuril) 25 MG tablet [id number] Yes Take 25 mg by mouth daily. Slick ProviderMD Taking Active loratadine (Claritin) 5 MG chewable tablet [id number] Yes Chew 5 mg daily. Slick ProviderMD Active Melatonin 2.5 MG chewable tablet [id number] Yes Chew Daily as needed. Slick Garcia MD Not Taking Active meloxicam (Mobic) 15 MG tablet [id number] Yes Take by mouth daily. Slick ProviderMD Not Taking Active Multiple Vitamin (multivitamin) capsule [id number] Yes Take 1 capsule by mouth daily. Historical ProviderMD Active Osage-3 Fatty Acids (OMEGA 3 500 PO) [id number] Yes Take by mouth daily. Historical ProviderMD Taking Active oxyCODONE-acetaminophen (Percocet) 5-325 MG tablet [id number] Yes Historical ProviderMD Taking Active simvastatin (Zocor) 20 MG tablet [id number] Yes Take 20 mg by mouth Nightly. Historical ProviderMD Taking Active traZODone (Desyrel) 100 MG tablet [id number] Yes Take 100 mg by mouth Nightly. Historical ProviderMD Taking Active valACYclovir (Valtrex) 500 MG tablet [id number] Yes Take by mouth daily. Historical ProviderMD Not Taking Active Vitamin E 268 MG (400 UNIT) capsule [id number] Yes Take by mouth daily. Historical ProviderMD [...] Observed: 10/03/2024 12:15 PM Status: COMPLETED Source: [facility] [id number] AbdullahiAlexusKarina M [birth year]/15 F Date Provider Department Center 10/03/2024 [id number], C*[facility] PUL None Family History Problem Relation Age of Onset Cancer Mother Cancer Father No Known Problems Sister No Known Problems Brother Heart disease Brother Family Status - Relation Status Age at Mother Father Sister Alive Brother Alive Brother Alive Level of Service:20090 [place] OFFICE/OUTPATIENT NEW MODERATE MDM 45 MINUTES Reason for Visit and Comments: New Patient [542] 36 Observed: 10/03/2024 12:04 PM Status: COMPLETED [facility] Orders Placed This Encounter Procedures [...] Observed: 10/03/2024 11:15 AM Status: COMPLETED [facility]: [facility] CARDIOV[facility] THORACIC SURGERY [address] [facility] [address] Dept: [phone] Dept Loc: [phone] Visit type: New Reason for Visit: AP [...] effusion. Per note, pt had presented to [place] ED in August 2023 for dyspnea. CTA [...] tablet, Take by mouth., Disp: , Rfl: Osage-3 Fatty Acids (OMEGA 3 500 PO), Take [...] This note may have been dictated using Referanza.[employer] Medical Practice Edition 2.6 and/or Let[employer] Jock Voice Recognition Feature. The document was proofread, however unrecognized voice recognition sap specialist errors may be present. OFFICE VISIT Observed: 10/03/2024 11:15 AM Status: COMPLETED Source: [facility] [id number] Karina Fernando [birth year] F Date Provider Department Center 10/03/2024 [id number] [facility] None Family History Problem Relation Age of Onset Cancer Mother Cancer Father No Known Problems Sister No Known Problems Brother Heart disease Brother Family Status - Relation Status Age at Mother Father Sister Alive Brother Alive Brother Alive Level of Service:82390 [place] OFFICE/OUTPATIENT NEW HIGH MDM 60 MINUTES Reason for Visit and Comments: New Patient [542] US THYROID Observed: 09/19/2024 11:00 AM Status: F Source: [facility] ORIGINAL EXAMINATION: ULTRASOUND OF THE THYROID WITH [...] Collected: 09/13/2024 12:53 PM Status: F Source: [facility] TYPE CODE TESTS RESULT OUT OF RANGE [...] PBNP, GFR, TSH, FT4, DIFF, MORPH #### [address] [address] .MORPH Collected: 09/13/2024 12:53 PM Status: F Source: [facility] TYPE CODE TESTS RESULT OUT OF RANGE REFERENCE UNITS LAB PLTE(LOINC) Platelet Estimate Normal LAB ANIS(LOINC) Anisocytosis 2+ LAB MICYT(LOINC) Microcytosis 2+ Performed By: #### CMP, CBC, PBNP, GFR, TSH, FT4, DIFF, MORPH #### [address] [address] CBC Collected: 12:53 PM Status: F Source: [facility] TYPE CODE TESTS RESULT OUT OF RANGE [...] PBNP, GFR, TSH, FT4, DIFF, MORPH #### [address] [address] TSH Collected: 12:53 PM Status: F Source: [facility] TYPE CODE TESTS RESULT OUT OF RANGE REFERENCE UNITS LAB TSH(LOINC) TSH 0.88 0.36-3.74 mcIU/mL Performed By: #### CMP, CBC, PBNP, GFR, TSH, FT4, DIFF, MORPH #### [address] [address] FT4 Collected: 12:53 PM Status: F Source: [facility] TYPE [facility] TESTS RESULT OUT OF RANGE REFERENCE UNITS LAB FT4(LOINC) Free T4 1.15 0.76-1.46 ng/dL Performed By: #### CMP, CBC, PBNP, GFR, TSH, FT4, DIFF, MORPH #### [address] [address] CMP Collected: 09/13/2024 12:53 PM Status: F Source: [facility] TYPE CODE TESTS RESULT OUT OF RANGE [...] PBNP, GFR, TSH, FT4, DIFF, MORPH #### [address] [address] PBNP Collected: 5 12:53 PM Status: F Source: [facility] TYPE CODE TESTS RESULT OUT OF RANGE REFERENCE UNITS LAB PBNP(LOINC) N-Terminal proBNP 235 High 0-125 pg/mL Result Comment: NT-proBNP re sults of less than 300 pg/mL effectively rules out acute congestive heart failure with 99% negative predictive value. Performed By: #### CMP, CBC, PBNP, GFR, TSH, FT4, DIFF, MORPH #### [facility] [address] [place], [place] [address] .GFR Collected: 12:53 PM Status: F Source: [facility] TYPE CODE TESTS RESULT OUT OF RANGE [...] PBNP, GFR, TSH, FT4, DIFF, MORPH #### [address] [place], [place] [address] XR CHEST 2 VIEWS Observed: 09/13/2024 9:30 AM Status: F Source: [facility] ORIGINAL EXAMINATION: TWO XRAY VIEWS OF THE [...] Yuri Conklin DO Preliminary Report By: Yuri Katerin, DO Electronically signed By Yuri Conklin DO Dictated Date: 09/14/2024 4:49:49 PM Prelim Date: 09/14/2024 4:52:34 PM Sign Date: 09/14/2024 4:52:34 PM Ordering Provider: GIOVANNI MAURER FLUABV+SARS-COV-2+RSV PNL RE SP MIGUE+PROBE Observed: 09/02/2024 3:28 PM Status: F Source: [facility] SARS-COV-2 (AGENT OF COVID-1 9) RNA: Not detectedINFLUENZA A RNA: Not detectedINFLUENZA B RNA: Not detectedRESPIRATORY SYNCYTIAL VIRUS (RSV) RNA: Not detected Performed By: #### 96086-3 # ### [facility] [place] [facility] CLIA [id number] [address] [place] [address] [facility] PROGRESS Observed: 09/02/2024 1:32 PM Status: COMPLETED Source: [facility] HNO ID: [id number] Author: DUNG LITTLEJOHN MD Service: ? Author [...] Observed: 09/02/2024 1:15 PM Status: COMPLETED Source: [facility] Office Visit (WSTR) KARINA FERNANDO ([id number]) 1950 F Date Time Provider Department 09/02/24 1:15 PM DUNG LITTLEJOHN [facility] During your visit today, [...] AND RSV PCR, ROUTINE [[id number]] Order #: [id number]. #:[id number] doxycycline monohydrate (MONODOX) 100 mg capsuleTake 1 [...] 09/02/2024 Noted Resolved MYALGIA AND MYOSITIS NOS [OKC0372] TOBACCO USE DISORDER [F17.200] JOINT PAIN-UNSPEC [M25.50] [...] Observed: 05/31/2024 5:45 PM Status: COMPLETED Source: [facility] HNO ID: [id number] Author: SERGIO MOHR PA-C Service: ? Author Type: Physician Wire Splicer Type: Progress Notes Filed: 05/31/2024 17:48 Note Text: This note was created using EverTuneter. Subjective Karina Fernando is a 73 year [...] Observed: 2023 5:18 PM Status: F Source: [facility] * * *Final Report* * * DATE [...] IMPRESSION: Mild left base atelectasis or infiltrate Policy Director[facility] Transcribe Date/Time: May 31 2024 5:27P Dictated by : JOSELYN VIDALES MD This examination was interpreted and the report reviewed and electronically signed by: JOSELYN VIDALES MD on May 31 2024 5:27PM EST [id number] Observed: 05/31/2024 5:00 PM Status: COMPLETED Source: [facility] HNO ID: [id number] Author: RIO PIKE RT(R) Service: ? Author Type: Documentation Clerk Type: Progress Notes Filed: 05/31/2024 17:17 Note [...] PATIENT PRESENTS WITH AN IMPLANTABLE OR ATTACHED YOUTH SUPPORT WORKER: No RADIOLOGY DEPARTMENT: General X-ray: Exam(s) Completed: Chest X-Ray PERIPHERAL IV DATA: Not applicable SIGNED BY: RT Yoko(R) May 31, 2024 5:12 PM CNOV Observed: 05/31/2024 4:45 PM Status: COMPLETED Source: [facility] Office Visit (WSTR) KARINA FERNANDO ([id number]) 1950 F Date Time Provider Department 05/31/24 4:45 PM [facility] During your visit today, we recorded the following information about you: Temperature Pulse Respiration Blood pressure 99.1 degrees 94/minute 18/minute 140/84 Weight 75.4 kg Sergio Mohr PA-C 05/31/2024 5:48 PM Signed This note was created using Moreixriter. Subjective Karina Fernando is a 73 year [...] imaging study [R91.8] Order(s):XR CHEST 2V FRONTAL/LAT [[id number]] Order #: [id number] FUTURE doxycycline (VIBRA-TABS) 100 mg tabletTake 1 [...] 05/31/2024 Noted Resolved MYALGIA AND MYOSITIS NOS [[id number]] TOBACCO USE DISORDER [F17.200] JOINT PAIN-UNSPEC [M25.50] [...] / CODE REACTION SEVERITY SOURCE 05/31/2024 DRUG INGREDI/19032 1003(SNOMED CT) PREDNISONE OTHER: SEE C [facility] 01/12/2023 DRUG/18492146 3(SNOMED CT) ALENDRONATE Myalgia [facility] 09/27/2018 DRUG INGREDI/43248 1003(SNOMED CT) FAMCICLOVIR UNKNOWN [facility] 09/27/2018 DRUG INGREDI/02904 1003(SNOMED CT) GABAPENTIN UNKNOWN [facility] 10/06/2012 DRUG/00799519 3(SNOMED CT) OXYCODONE [id number] Vomiting [facility] 11/18/2006 DRUG INGREDI/56806 1003(SNOMED CT) CEFACLOR HIVES [facility] 11/18/2006 DRUG/35405565 3(SNOMED CT) TRIAMTERENE-HYDROCHLO ROTHIAZID RASH [facility] 11/18/2006 DRUG/47204873 3(SNOMED CT) ERYTHROMYCIN GI UPSET [facility] 11/18/2006 Drug Class/0863422 03(SNOMED CT) PENICILLINS HIVES [facility] 11/18/2006 DRUG INGREDI/58870 1003(SNOMED CT) TRAMADOL HCL Vomiting [facility] ENCOUNTERS ADMIT/DISCHARGE ACCOUNT NUMBER ADMITTING ENCOUNTER CLASS LOCATION SOURCE 04/09/2025/04/09/20 [id number] [facility]ulatory [facility] 04/02/2025/04/06/20 [id number] [facility] 03/12/2025/03/12/20 [id number] Ambulatory [facility] :[facility] 11/24/2024/11/25/19 [id number] Emergency ABuilding:[facility] 10/26/2024/10/27/19 [id number] Ambulatory Buildin [id number] [facility] 10/24/2024/10/25/19 [id number] Ambulatory Buildin [id number] [facility] 10/20/2024/10/21/19 25 [id number] Ambulatory Buildin [id number] [facility] 10/17/2024/10/18/19 25 [id number] Ambulatory Buildin [id number] [facility] 10/17/2024/10/18/19 25 [id number] Ambulatory Buildin [id number] [facility] 10/09/2024/10/10/19 25 [id number] CAIN MEJIA Ambulatory Buildin [id number]: SBAINORBed : 4206 [facility] 10/06/2024 [id number] Ambulatory ABuilding:Yogi Gramajo [facility] 10/05/2024/10/07/19 25 [id number] EMILE HORNE Ambulatory Buildin [id number]: [facility] [id number]: 4-439 A [facility] 10/03/2024/10/04/19 25 [id number] Ambulatory Buildin [id number] [facility] 10/03/2024/10/04/19 25 [id number] Ambulatory Buildin [id number] [facility] 10/03/2024/10/04/19 25 [id number] Ambulatory Buildin [id number] [facility] 09/25/2024/09/26/19 25 [id number] Ambulatory [facility] :[facility] 09/19/2024/09/20/19 25 [id number] Ambulatory [facility] :[facility] 09/13/2024/09/18/19 25 [id number] [facility] 09/13/2024/09/13/19 25 [id number] Ambulatory [facility]Building :[facility] 09/02/2024/09/02/19 25 [id number] [facility] 05/31/2024/05/31/20 24 [id number] [facility] 05/31/2024/05/31/20 [id number] [facility] PAYERS ENCOUNTER GUARANTOR PAYER SUBSCRIBER SOURCE 04/09/2025 KARINA BRUCE: [place] [address]Njh: (HP) Primary Insurance:[employer]HEM BLUE CROSS INSCOPolicy Number: [id number] Date:6562-63-66Ebyn Name:[place] [address]RN: KARINA BROWNB: [id number] [place] [address]Fnu: (HP) (WP) [facility] 04/02/2025 KARINA BROWNB: [place] [address]Cxh: (HP) Primary Insurance:[employer]HEM BLUE CROSS INSCOPolicy Number: [id number] Date:1205-02-83Kqut Name:[place] [address]PK: KARINA BROWNB: [id number] [facility] [place] [address]Hob: (HP) (WP) [facility] 03/12/2025 KARINA BROWNB: [place] [address]Uam: (HP) Primary Insurance:[employer]HE[employer] BLUE CROSS INSCOPolicy Number: [id number] Date:8764-53-71Uihw Name:[place] [address]YF: KARINA BROWNB: [id number] [place] [address]Zpx: (HP) () [facility] 11/24/2024 KARINA BROWNB: [place] [address]Wgw: (HP) Primary Insurance:EPIFANIO [employer]GH INSCOPolicy Number: [id number] Date:4000-94-12Fktp Name:CHERYL [place]IG[place], [place] [address]VE: KARINA FERNANDOB: [id number] [place] [address]Jrf: (HP) () [facility] 10/26/2024 Primary Insurance:ANTHEM MEDICARE ADVANTAGEPolicy Number: [id number] Date:5900-37-94Xgjk Name:Medicare HMO KARINA FERNANDOB: [id number] [place], [place] [address] [place] [address] 10/24/2024 Primary Insurance:KRAIG MEDICARE ADVANTAGEPolicy Number: [id number] Date:7376-37-10Qltw Name:Medicare HMO KARINA FERNANDOB: [id number] [place], [place] [address] [place] [address] 10/20/2024 Primary Insurance:[facility] MEDICARE ADVANTAGEPolicy Number: [id number] Date:1250-66-02Hbxy Name:Medicare HMO KARINA Maxwell MELISSACOCOB: [id number] [place] [address] [facility] 10/17/2024 Primary Insurance:[facility] MEDICARE ADVANTAGEPolicy Number: [id number] Date:9084-07-49Usdr Name:Medicare HMO KARINA Maxwell KEVINB: [id number] [place] [address] [facility] 10/17/2024 Primary Insurance:EPIFANIO MEDICARE ADVANTAGEPolicy Number: [id number] Date:0747-60-32Hcxe Name:Medicare O KARINA BROWNB: [id number] [place] [address] [facility] 10/09/2024 Primary Insurance:EPIFANIO MEDICARE ADVANTAGEPolicy Number: [id number] Date:0274-64-58Hyfi Name:Medicare O KARINA BROWNB: [id number] [facility] [address] [facility] 10/06/2024 KARINA BROWNB: [facility] [place] [address]Tbz: (HP) Primary Insurance:EPIFANIO BERTRAND MELENDEZ INSCOPolicy Number: [id number] Date:0448-24-37Kobb Name:[facility] [place] [address] [address]QK: KARINA BROWNB: [id number] [place] [address]Abm: (HP) () [facility] 10/05/2024 Primary Insurance:KRAIGBLANCA MEDICARE ADVANTAGEPolicy Number: [id number] Date:2611-79-51Jdcn Name:Medicare O KARINA BROWNB: [id number] [place] [address] [facility] 10/03/2024 Primary Insurance:EPIFANIO MEDICARE ADVANTAGEPolicy Number: [id number] Date:7989-91-44Ylax Name:Medicare O KARINA BROWNB: [id number] [place] [address] [facility] 10/03/2024 Primary Insurance:EPIFANIO MEDICARE ADVANTAGEPolicy Number: [id number] Date:5591-74-71Haol Name:Medicare HMO KARINA BROWNB: [id number] [place] [address] [facility] 10/03/2024 Primary Insurance:KRAIGEM MEDICARE ADVANTAGEPolicy Number: [id number] Date:7045-20-10Jbor Name:Medicare HMO KARINA BROWNB: [id number] [place] [address] [facility] 09/25/2024 KARINA BROWNB: [place] [address]Yqf: (HP) Primary Insurance:KRAIG BERTRAND FITZHUGH INSCOPolicy Number: [id number] Date:6124-79-33Zoqz Name:[address] [address]BM: KARINA BROWNB: [id number] [place] [address]Qfn: (HP) (WP) [facility] 09/19/2024 KARINA BROWNB: [place] [address]Mwl: (HP) Primary Insurance:[facility] INSCOPolicy Number: [id number] Date:3903-08-64Obfr Name:[place] [address]QU: KARINA BROWNB: [id number] [place] [address]Esl: (HP) (WP) [facility] 09/13/2024 KARINA BROWNB: [place] [address]Wez: (HP) Primary Insurance:ANTH BLUE CROSS INSCOPolicy Number: [id number] Date:5110-03-78Luhm Name:[place] [address]EU: KARINA BROWNB: [id number] [place] [address]Pus: (HP) (WP) [facility] 09/13/2024 KARINA FERNANDOB: [place] [address]Nud: (HP) Primary Insurance:ANTH BERTRAND MELENDEZ INSCOPolicy Number: [id number] Date:3419-20-87Dlhp Name:[place] [address]SG: KARINA FERNANDOB: [id number] [place] [address]Ykk: (HP) (WP) [facility] 09/02/2024 Primary Insurance:ANTH MEDICARE ADVANTAGE OPolicy Number: [id number] Date:3475-49-31Vktg Name:Krunal FERNANDOTERRANCE: [id number] [place] [address] [facility] 05/31/2024 Primary Insurance:[employer]HEM MEDICARE ADVANTAGE HMOPolicy Number: [id number] Date:0779-61-71Engq Name:Krunal FERNANDOTERRANCE: [id number] [place] [address] [facility] 05/31/2024 Primary Insurance:[employer]M MEDICARE ADVANTAGE HMOPolicy Number: [id number] Date:1090-84-96Hybb Name:Krunal BRUCE: [id number] [place] [address] [facility]
--- OUTSIDE RECORDS SUMMARY | 2025-04-09 10:00 | XMS RPT_ITS ---
[...] [phone] Care Team Providers Care Business Solutions Director Name Role Phone TU HECTOR Primary Care [...] Unava ilable LEI, TU Primary Care Unavailable RAJIVMIRIAMIRIS Attending Unavailable LEI, TU Primary Care Unavailable LEI, TU Primary Care Unavailable RACHEL JOHNSON Attending Unava ilable MAST GLAZE MAKER-MACHINE SEWER, GIOVANNI Primary Care Unavailabl e MAST GLAZE MAKER-MACHINE SEWER, GIOVANNI Attending Unavailabl e MAST GLAZE MAKER-MACHINE SEWER, GIOVANNI Primary Care Unavailabl e MAST GLAZE MAKER-MACHINE SEWER, GIOVANNI Attending Unavailabl e MAST GLAZE MAKER-MACHINE SEWER, GIOVANNI Attending Unavailabl e LEI DO, TU Primary Care Unavailable MAST GLAZE MAKER-MACHINE SEWER, GIOVANNI Attending Unavailabl e LEI DO, TU Primary Care Unavailable MAST GLAZE MAKER-MACHINE SEWER, GIOVANNI Attending Unavailabl e LEI DO, TU Primary Care Unavailable MAST GLAZE MAKER-MACHINE SEWER, GIOVANNI Attending Unavailabl e LEI DO, TU Primary Care Unavailable MAST GLAZE MAKER-MACHINE SEWER, GIOVANNI Attending Unavailabl e MAST GLAZE MAKER-MACHINE SEWER, GIOVANNI Primary Care Unavailabl e LEI DO, TU Primary Care Unavailable NOHEMY MYERS, DR JANNETH Browne Attending Unavai ENID Nur MD Attending Unavailable LEI DO, TU Primary Care Unavailable SERGIO MOHR Referring Unavailable PROBLEMS DATE TYPE CONDITION / CODE ATTENDING STATUS [facility] 04/02/2025 Admitting Diagnosis Hypokalemia / E87.6(ICD-10) MAST GLAZE MAKER-MACHINE SEWER, GIOVANNI [facility] 11/24/2024 Unknown Displaced fractu re of distal phalanx of left thumb, initial encounter for closed fracture / S62.522A(ICD-10) ENID FORMAN MD [facility] 11/24/2024 Unknown Laceration witho ut foreign body of left thumb without damage to nail, initial encounter / S61.012A(ICD-10) JON FORMAN MDSSE [facility] 10/26/2024 Admitting Diagnosis Chronic kidney disease, stage 3a (HCC) / N18.31(ICD-10) JOSELYN TUCKER [facility] 10/26/2024 Admitting Diagnosis Nontoxic multinodular goiter / E04.2(ICD-10) JOSELYN TUCKER [facility] 10/03/2024 Admitting Diagnosis Other ill-defined heart diseases / I51.89(ICD-10) [facility] 10/24/2024 Admitting Diagnosis Malignant (primary) neoplasm, unspecified (HCC) / C80.1(ICD-10) [facility] 10/17/2024 Admitting Diagnosis Chronic obstructive pulmonary disease, unspecified (HCC) / J44.9(ICD-10) HOUSTON Tao [facility] 10/17/2024 Admitting Diagnosis Other specified pleural conditions / J94.8(ICD-10) [facility] 10/05/2024 Admitting Diagnosis Other nonspecific abnormal finding of lung field / R91.8(ICD-10) JACKIE [facility] 10/05/2024 Admitting Diagnosis Enlarged lymph nodes, unspecified / R59.9(ICD-10) CAIN MEJIA [facility] 10/05/2024 Admitting Diagnosis Pleural effusion, not elsewhere classified / J90(ICD-10) EMILE HORNE [facility] 10/03/2024 Admitting Diagnosis Other pericardial effusion (noninflammatory) / I31.39(ICD-10) IRIS LUIS [facility] 10/03/2024 Admitting Diagnosis Emphysema, unspecified (HCC) / J43.9(ICD-10) [place] [facility] Admitting Diagnosis New Patient / 542() [facility] 09/13/2024 Admitting Diagnosis Essential (primary) hypertension / I10(ICD-10) [facility] 09/13/2024 Admitting Diagnosis Dysphagia, unspecified / R13.10(ICD-10) MAST GLAZE [facility] 09/13/2024 Admitting Diagnosis Personal history of nicotine dependence / Z87.891(ICD-10) MAST GLAZE [facility]KER[facility] 05/31/2024 Active Acute cough / R05.1(ICD-10) NA Active To Clinic To PROCEDURES No Procedure Records Found RESULTS BMP Collected: 04/09/2025 10:03 AM Status: F Source: [facility] Order Comment: cc Dr Daniel TYPE [...] mg/dL Performed By: #### GFR, BMP #### [address] [address] .GFR Collected: 10:03 AM Status: F Source: [facility] TYPE CODE TESTS RESULT OUT OF [...] results. Performed By: #### GFR, BMP #### [address] [address] BMP Collected: 04/02/2025 2:17 PM Status: F Source: [facility] Order Comment: cc Dr Daniel TYPE [...] mg/dL Performed By: #### GFR, BMP #### [address] [address] .GFR Collected: 04/02/2025 2:17 PM Status: F Source: [facility] TYPE CODE TESTS RESULT OUT OF [...] results. Performed By: #### GFR, BMP #### [address] [address] K Collected: 03/12/2025 12:36 PM Status: F Source: [facility] TYPE CODE TESTS RESULT OUT OF RANGE REFERENCE UNITS LAB K(LOINC) Potassium Level 3.8 3.5-5.1 mmol/L Performed By: #### K #### [address] [place], [place] [address] XR FINGER THUMB 3 VIEWS LEFT Observed: 11/24/2024 2:46 PM Status: F Source: [facility] ORIGINAL EXAMINATION: THREE XRAY VIEWS OF THE [...] [facility] Faxed office note to [facility] 36 Observed: 11/01/2024 5:02 PM Status: COMPLETED Source: [facility] Phone call to patient [facility] er, ( 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 She [...] daughter would like to establish with a assistant food service director in [place]. Patient is monitoring her BP at home, and will call her daughter, ( who is at work now) if BP drops. She will contactthe office services coordinator to see if she can arrange [...] Daughter states chemo staff said to call assistant food service director. She is not sure if oncologist [...] yesterday. Chemo staff wanted pt to call assistant food service director pt has edema in ankles. 36 Observed: 10/27/2024 2:17 PM Status: COMPLETED Source: [facility] Reviewed clinisync and confi rmed that patient ws able to establish with [facility] on 10/26/24. Beginning treatment 10/31/24. 36 Observed: 10/26/2024 2:52 PM Status: COMPLETED Source: [facility] Pt's Daughter, Diaz requsoraida ting POC device for he Mother. Explains her Mother has multiple Dr's appointments. Just today, her mother used 3 tanks. While working on TE, had contacted Pt's Daughter for more information , Diaz explained, She just talked to [place] and decided to stick with tanks. PROGRESS NOTE Observed: 10/26/2024 10:20 AM Status: COMPLETED Source: [facility] . ENDOCRINOLOGY [address] [facility] [address] Dept: [phone] Dept Visit type: New patient Reason for [...] capsule by mouth daily., Disp: , Rfl: [place]-3 Fatty Acids (OMEGA 3 500 PO), Take [...] AM Status: COMPLETED Source: [facility] [id number] Karina Fernando [birth year] F Date Provider Department Center 10/26/2024 JOSELYN LR [facility] None Family History Problem Relation Age of Onset Cancer Mother Cancer Father No Known Problems Sister No Known Problems Brother Heart disease Brother Family Status - Relation Status Age at Mother Father Sister Alive Brother Alive Brother Alive Level of Service:92008 DC OFFICE/OUTPATIENT NEW HIGH MDM 60 MINUTES Reason [...] [facility] Received call from Alee Greenhouse Staff at [facility]. Per Alee, they are aware patient now has oncology appt in [place], but they are tryoing to have her seen at [place] sooner. Right faxed MRI brain and PET reports to providers at [place] in case she returns to them for [...] Observed: 10/24/2024 9:30 AM Status: COMPLETED Source: [facility] CARDIOVASCULAR & THORACIC SURGERY [address] [place] [address] [address] [facility] [address] Dept: [phone] Dept Loc: [phone] Patient was identified and seen today via [...] stated that they are currently in the [facility]. If the patient is a minor, [...] etiology. Per note, pt had presented to [place] ED in August 2023 for dyspnea. CTA [...] consistent with malignancy. Patient was hospitalized at [facility] on 10/05/24 for shortness of breath, [...] follow with her oncologist Dr. Chance in [place]. MRI brain on 10/17/24 was normal. PET [...] patient also completed a thyroid biopsy at [place] and pathology is still pending/unavailable. Pt is [...] capsule by mouth daily., Disp: , Rfl: Pie [place]-3 Fatty Acids (OMEGA 3 500 PO), Take [...] TISSUE. Please see associated cytology specimen ([id number]). Cytology 10/09/24 Final Diagnosis A - Mediastinal [...] This note may have been dictated using [employer] Practice Edition 2.6 and/or Highlighter Voice Recognition Feature. The document was proofread, however unrecognized voice recognition apartment community manager errors may be present. PROGRESS NOTE Observed: 10/20/2024 2:00 PM Status: COMPLETED [facility] This patient has been referr ed to the oncology team. The staging PET scan should be addressed by the multidisciplinary team. Giving him the diagnosis and extent of disease, surgical resection is not indicated. 36 Observed: 10/19/2024 12:42 PM Status: COMPLETED Source: [facility] Brit[facility] Dr. Lacho Tillman placed the recommended referral to the [facility] medical oncology. Navigator spoke directly with video coordinator and medical oncology provider office and stressed urgency of appointment follow-up. sample coordinator and medical oncology discussed directly with oncologist at the [facility]. They are unable to offer Karina an appointment sooner than previously scheduled with her [place] oncology team. Navigator apologized to family and recommended they keep previously scheduled [place] oncology appointment. Patient will see Dr. Dunham 11/01/24 per daughter. Records have been sent to [place] and PET and MRI will also be sent when reports are final. Family has navigator contact info and will call if they need assistance. 36 Observed: 10/18/2024 2:23 PM Status: COMPLETED Source: [employer] [facility] Pt daughter notified 36 Observed: 10/18/2024 1:23 PM Status: COMP LETED Source: [facility] Britely [facility] Script sent 36 Observed: 10/18/2024 11:09 AM Status: COMPLETED Source: [facility] Please place referral for me dical oncology to [facility]. Navigator spoke with video coordinator and medical oncology office. She will discuss with oncology providers tomorrow morning to stress the urgency of appointment and attempt to expedite appointment. If unable to get patient in sooner than [place], navigator will advise patient to keep previously scheduled oncology follow-up. Daughter notified. 36 Observed: 10/18/2024 8:33 AM Status: COMPLETED Source: [facility] Navigator received callback from patient's daughter Diaz. Patient's daughter reports that since we are able to expedite MRI and PET scan, oncology appointment has been moved up to 10/31/2024, but this is just tentative appointment as her oncology provider in [place] is out of town and may not be back until 11/06/2024. Daughter would like Dr. Lacho Tillman to review and is willing to transfer care for oncology to [facility] if pulmonary provider feels sooner oncology [...] to patient's regular oncologist, Dr. Dunham and load manager Rhiannon Georges in [place]. Patient has medical oncology appointment 11/06/24 but will try to move appointment sooner after PET scan. Navigator will send PET and MRI reports to providers once final . PROGRESS NOTE Observed: 10/17/2024 11:30 AM Status: COMPLETED Source: [facility], Pulmonary Critical Car e Medicine [address] [place] [id number] Pulmonary Patient Visit 10/17/2024 Referring Physician: TU HECTOR DO Reason for Referral: SOB 10/03/24 History of Present Illness Karina Fernando is a 73 y.o. F with history of recurrent sinus infections, COPD on symbicort/albuterol, HTN who presented for a left hilar mass. Stated that in May she began having shortness of breath which worsened until she went to the ER in [place] in August. Found on CT with a left hilar mass, left upper lobe pleural-based mass, and moderate pericardial effusion. Evaluated by oncology and recommended for PET/CT, MRI brain, and biopsy. Established with pulmonology and had been planned for EBUS in [place] but canceled after TTE demonstrated a right [...] Previously normal 10/17/24 Patient was hospitalized in [place] ER for worsening pain and shortness of [...] Dose Status acetaminophen (Tylenol) 325 MG tablet [id number] Take 2 tablets (650 mg) by mouth every 6 hours as needed for mild pain (1-3) or fever (For temp greater than 100.4 F (38 C)) for up to 10 days. Patient not taking: Reported on 10/09/2024 Emile Horne DO 10/16/24 2359 albuterol (Ventolin HFA) 108 (90 Base) MCG/ACT inhaler [id number] Yes Inhale 2 puffs every 4 hours as needed for wheezing or shortness of breath. Rachel Johnson DO Active ALPRAZolam (Xanax) 0.5 MG tablet [id number] Take 1 tablet (0.5 mg) by mouth 1 time for 1 dose. Take 30 minutes prior to MRI Lisandra Aldridge, NEGIN - MACHINE SEWER 10/10/24 2359 Discontinued 10/17/24 1119 budesonide-formoterol (Symbicort) 80-4.5 MCG/ACT inhaler [id number] Inhale 2 puffs 2 times daily. Rachel Johnson DO Active busPIRone (Buspar) 10 MG tablet [id number] Yes Take 10 mg by mouth 3 times daily as needed. Historical ProviderMD Active cholecalciferol (Vitamin D-3) 25 MCG (1000 UT) capsule [id number] Yes Take 1,000 Units by mouth daily. Historical Provider, Active ipratropium-albuterol (Duo-Neb) 0.5-2.5 mg/3 mL nebulizer solution [id number] Yes Take 3 mL by nebulization every 6 hours. Historical Provider, Active loratadine (Claritin) 5 MG chewable tablet [id number] Yes Chew 5 mg daily. Historical Provider, Active Melatonin 2.5 MG chewable tablet [id number] Yes Chew Daily as needed. Historical ProviderMD Active Multiple Vitamin (multivitamin) capsule [id number] Yes Take 1 capsule by mouth daily. Historical Provider, Active [place]-3 Fatty Acids (OMEGA 3 500 PO) [id number] Yes Take by mouth daily. Historical Provider, Active oxyCODONE-acetaminophen (Percocet) 7.5-325 MG tablet [id number] Take 1 tablet by mouth every 6 hours as needed for moderate pain (4-6) for up to 5 days. Emile Horne, DO 10/11/24 2359 traZODone (Desyrel) 100 MG tablet [id number] Yes Take 100 mg by mouth Nightly. Historical Provider, Active valACYclovir (Valtrex) 500 MG tablet [id number] Yes Take by mouth daily. Historical Provider, Active Vitamin E 268 MG (400 UNIT) capsule [id number] Yes Take by mouth daily. Historical Provider, [...] Follow up: Patient will follow-up with her load manager and oncologist in [place] Please seek immediate medical attention for any [...] YOUR APPOINTMENT TODAY WAS W GAL[place] [facility] LUNG NODULE [facility]INIC, COPD CLINIC, PULMONARY AND SLEEP MEDICINE OFFICE. PLEASE CALL OUR OFFICE AT [phone] IF YOU HAVE NOT RECEIVED YOUR TEST [...] to make improvements. COVID-19 VACCINATION INFORMATION: PH. [phone] [email or web address] [facility] Central Scheduling [phone] [facility] Sleep Scheduling [phone] OFFICE VISIT Observed: 10/17/2024 11:30 AM Status: COMPLETED Source: [facility] [id number] Karina Fernando [age] F Date Provider Department Center 10/17/2024 [id number], C*[facility] PUL None Family History Problem Relation Age of Onset Cancer Mother Cancer Father No Known Problems Sister No Known Problems Brother Heart disease Brother Family Status - Relation Status Age at Mother Father Sister Alive Brother Alive Brother Alive Level of Service:31531 DC OFFICE/OUTPATIENT ESTABLISHED MOD MDM 30 MIN Reason for Visit and Comments: Follow-up [[id number]] PROGRESS NOTE Observed: 10/17/2024 9:13 AM Status: [...] Dr. Evita Watson to do recommendations for amria, CTC: SK MR#/Epic [id number] Oncologist: Dr. Mauri Chance ([place]) CTAP: /Age [birth year] 73 yo Rad Oncologist MRI: 10/17/24 Gender Female Dependency Program Director: Dr. Lacho Tillman/ [facility] PET: 10/30/24 Smoking History: ? Former 40 pk yr Quit 05/2024 PCP: Dr. Tu Hector PFT: 09/25/24 @ [facility] ?Prospective []Retrospective Er Manager: Dr. Luis PATH: EBUS/TBBX 10/09/24; US Thora 10/06/24; Thyroid bx- [place] 10/10/24 (path pending) Clinical Stage: unable to stage : @ least N2 dz Path Stage: T N M Barium Swallow 10/06/24 Brief Summary Known COPD was seen in ED at [place] for eval of worsening SOB, Left shoulder, back, and lung pain, and dizziness. CT in [place] noted a left hilar mass, LEYLA mass and adenopathy, R atrial mass, pericardial effusion and thyroid nodules. Evaluated by [place] med onc and recommended to have PET, MRI and biopsy. Sent to [facility] CTS and arranged same day urgent appts with pulmonary and cardiology. Sent for EBUS and now presents to review imaging, path, staging and plan of care. * Also completed thyroid bx @ [place] and path results are pending Recommendations: 1. [...] treatment plan may differ from this recommendation. [id number] Observed: 10/12/2024 9:57 AM Status: COMPLETED Source: [facility] Britely [facility] Patient: Karina Fernando Procedure Summary Date: 10/09/24 Room / Location: [place] [address] / [facility] Gastroenterology Anesthesia Start: 1439 Anesthesia Stop: 1542 [...] Procedure Summary Date: 10/09/24 Room / Location: [place] [address] / [facility] Gastroenterology Anesthesia Start: 1439 Anesthesia Stop: 1542 [...] Observed: 10/11/2024 11:12 AM Status: COMPLETED Source: [facility] Pt daughter notified. Confir med with pharmacy that prescription is ready for pickup. 36 Observed: 10/10/2024 3:10 PM Status: COMPLETED Source: [facility] Script sent for 1 time dose prior to MRI- please notify patient 36 Observed: 10/10/2024 2:41 PM Status: COMPLETED Source: [facility] Pt called and states she is claustrophobic. Dr. Fortune ordered an MRI brain which is scheduled on 10/17/24. Pt is requesting something to help with anxiety prior to scan. Pharmacy confirmed. Please advise. FUNGAL CULTURE Observed: 10/09/2024 3:34 PM Status: F Source: [facility] FUNGAL CULTURE Reference No fungus isolated after 21 days [ S = SUSCEPTIBLE R = RESISTANT I = INTERMEDIATE S-DD = Susceptible-dose dependent NS = Non-susceptible NO = No Interpretation ] Performed By: #### [id number] # ### Header Up: GUERDA WEBBER ([id number]) [facility] ([facility]) [address] [place] [address] RESPIRATORY CULTURE AND STAIN Observed: 10/09/2024 3:34 PM Status: F Source: [facility] RESPIRATORY CULTURE Referen ce Rare respiratory [...] = No Interpretation ] Performed By: #### [id number], L [id number] #### Header Up: GUERDA WEBBER ([id number]) [facility] ([facility]) [address] [place] [address] FUNGAL STAIN Observed: 10/09/2024 3:34 PM Status: F Source: [facility] FUNGAL STAIN Reference No fungal elements seen ORDER COMMENTS: Reference Range: No fungal elements seen [ S = SUSCEPTIBLE R = RESISTANT I = INTERMEDIATE S-DD = Susceptible-dose dependent NS = Non-susceptible NO = No Interpretation ] Performed By: #### [id number], L [id number] #### Header Up: GUERDA WEBBER ([id number]) [facility] ([facility]) [address] [place] [address] AFB CULTURE Observed: 10/09/2024 3:34 PM Status: [...] = No Interpretation ] Performed By: #### [id number] ## ## Header Up: GUERDA WEBBER ([id number]) [facility]) [address] [place] [address] FINE NEEDLE ASPIRATION Collected: 10/09/2024 3:03 PM Status: F Source: [facility] TYPE CODE TESTS RESULT OUT OF RANGE REFERENCE UNITS PATHOLOGY 1499 LAB AP CASE REPORT Result Comment: Fine Needle Aspiration, Cytology Case: [id number] Authorizing Provider: Cain Mejia MD Collected: 10/09/2024 1503 Ordering Location: [facility] Endoscopy Received: 10/09/2024 1601 Pathologist: Josselin Garcia [...] see p pepe's concurrent surgical pathology specimen ([id number]) for additional information. ADDITIONAL SURGICAL CASES EXIST FOR THIS SAME DATE OF SERVICE PATHOLOGY [id number] LAB AP CYTO INTRAOPERATIVE CONSULTATION Result Comment: Part A: Pass 1 - rare lymphocytes present. Pass 2 - lymphocytes present. Part B: Pass 1 - lymphocytes present. Part C: Pass 1 - blood. Part D: Pass 1 - adequate. Part E: Pass 1 - adequate. Onsite interpretation by Dr. Garcia. PATHOLOGY [id number] LAB AP GROSS DESCRIPTION Result Comment: A [...] characteristics determined by the clinical laboratories of [facility]. They have not been cleared by [...] of false negativity on decalcified specimens. PATHOLOGY [id number] AP CASE SCREENING LOCATION [facility], [address] [facility] [address]; CLIA: [id number]; Joint Commission: HCO [id number]; CAP: [id number] PATHOLOGY [id number] AP CASE PATHOLOGIST INTERP LOCATION [facility], [address] [facility] [address]; CLIA: [id number]; Joint Commission: HCO [id number]; CAP: [id number] PATHOLOGY EMBDOC OUTGOING CLINICAL RESULTS EMBEDDED DOCUMENT Performed By: #### [id number] ## ## Header Up: JOSSELIN GARCIA ([id number]) [facility] [address] TISSUE EXAM Collected: 2:55 PM Status: F Source: [facility] TYPE CODE TESTS RESULT OUT OF RANGE REFERENCE UNITS PATHOLOGY 1499 LAB AP CASE REPORT Result Comment: Surgical Pat hology Case: [id number] Authorizing Provider: Cain Mejia MD Collected: 10/09/2024 1455 Ordering Location: [facility] Endoscopy Received: 10/09/2024 1551 Pathologist: Richard Mckeon [...] INFORMATION Hilar mass, Adenopathy, Lung mass PATHOLOGY [id number] LAB AP HISTO GROSS DESCRIPTION Received in [...] characteristics determined by the clinical laboratories of [facility]. They have not been cleared by [...] of false negativity on decalcified specimens. PATHOLOGY [id number] AP CASE PATHOLOGIST INTERP LOCATION [facility], [address] [place] [address], CLIA: [id number]; Joint Commission: HCO [id number]; CAP: [phone] PATHOLOGY EMBDOC OUTGOING CLINICAL RESULTS EMBEDDED DOCUMENT Performed By: #### [id number] # ### Header Up: GUERDA WEBBER ([id number]) [facility] ([facility]) [address] [place] [address] PROCEDURE NOTE Observed: 10/09/2024 2:51 PM Status: COMPLETED Source: [facility] Airway Date/Time: 10/09/2024 2:43 PM Urgency: scheduled Airway not difficult General Information and Staff Patient location during procedure: Procedural Resident/MANUAL MACHINIST: Mello Schneider CRNA Performed: MANUAL MACHINIST Indications and Patient Condition Indications for airway [...] Status: COMPLETED Source: [facility] Name: Karina Fernando Procedure Date: 10/09/2024 2:23 PM Gender: Female Date of : 1950 Age: 73 Admit Type: Outpatient Note Status: Finalized Attending MD: Cain Mejia MD, [id number] Procedure: Bronchoscopy Indications: Left hilar mass Findings: [...] and in the left hilum using a Capsearch Expect 25 gauge needle and sent for [...] loss: Minimal Procedure Code(s): --- Professional --- 12995, Bronchoscopy, rigid or flexible, including fluoroscopic guidance, when performed; with transbronchial needle aspiration biopsy(s), trachea, main stem and/or lobar bronchus(i) 74390, 59, Bronchoscopy, rigid or flexible, including fluoroscopic guidance, when performed; with bronchial or endobronchial biopsy(s), single or multiple sites 71076, Bronchoscopy, rigid or flexible, including fluoroscopic guidance, when performed; with bronchial alveolar lavage 77770, Bronchoscopy, rigid or flexible, including fluoroscopic guidance, when performed; with brushing or protected brushings 48829, Bronchoscopy, rigid or flexible, including fluoroscopic guidance, when performed; with transendoscopic endobronchial ultrasound (EBUS) during bronchoscopic diagnostic or therapeutic intervention(s) for peripheral lesion(s) (List separately in addition to code for primary procedure[s]) Diagnosis Code(s): --- Professional --- R91.8, Other nonspecific abnormal finding of lung field J98.4, Other disorders of lung J98.09, Other diseases of bronchus, not elsewhere classified R04.2, Hemoptysis CPT copyright 2021 [employer]. All rights reserved. The codes documented in this report are preliminary and upon cardiac/vascular sonographer review may be revised to meet current compliance requirements. Attending Participation: I personally performed the entire procedure. Cain Mejia MD 10/09/2024 3:46:37 PM This report has been signed electronically. Number of Addenda: 0 Note Initiated On: 10/09/2024 2:23 PM HISTORY AND PHYSICAL NOTE Observed: 09/17 2:11 PM Status: COMPLETED Source: [facility] Chief Complaint: left hilar mass History [...] Rad, path, total time: 90 min Location: [place] [address] / [facility] Gastroenterology [...] Observed: 10/09/2024 9:01 AM Status: COMPLETED Source: [facility] [facility] Tarsoraidaa notified. 30 Observed: 10/06/2024 5:09 PM Status: COMPLETED [facility] Patient discharged Problem: Pain - Adult Goal: [...] [place] Patient Name: [facility]ARINA FERNANDO [facility] 1950 [id number] Exam Date/Time: 10/06/2024 08:32 Procedure: US GUIDED [...] PM Status: COMPLETED Source: [facility] RTHOMEO2[[id number]] Respiratory Therapy Home O2 Progress Note O2 [...] and other work up. She presented to [place] ED - with worsening left shoulder, back [...] to [facility] [address] [place] [address] Hours: Wednesday to Wednesday 10 am to 6 pm oxyCODONE-acetaminophen 7.5-325 MG tablet You can get these medications from any pharmacy You don't need a prescription for these medications acetaminophen 325 MG tablet Recommended Follow-up: Tu Hector DO [address] [place] [address] PHYSICIANS [facility] [phone] Follow up in 1 week(s) Complexity of Follow up: [] Moderate Complexity: follow up within 7-14 calendar days (26783) [x] Severe Complexity: follow up within 7 calendar days (81345) Follow up Testing, Pending results or Referrals [...] DO Division of Hospital Medicine Inpatient Medical Services[place] [place] [place] 10/06/2024, 3:09 PM PROGRESS NOTE Observed: 10/06/2024 3:06 PM Status: COMPLETED Source: [facility] Patient chart is reviewed. Edwin avelar. Full note to follow. [id number] Observed: 10/06/2024 12:55 PM Status: COMPLETED Source: [facility] Pt adm for tx/ eval of SOB- found to have pleural effusion. RA currently. US guided thoracentesis, XR chest and barium swallow completed. Spoke with pt and family, introduced self and roll. Pt plans to return home- no needs. RESS NOTE Observed: 10/06/2024 12:39 PM Status: COMPLETED [facility] PHYSICAL THERAPY Former[facility] Initial Evaluation Name/MRN: Karina Fernando ([id number]) Evaluation Date: 10/06/2024 Date of : 1950 Admission Date: 10/05/2024 8:10 PM Age: 73 y.o. [facility] A Discharge Recommendation: Home with Home health PT Assessment IMPRESSION: Karina is a 73 y.o. female with past medical history of COPD previous smoker, asthma, Hiatal hernia, Recent discovery of lung mass and thyroid nodules. ACQUISITION MANAGER pt IND without device. Pt reports [...] Responsibilities: Independent Receives Help From: Family Active Licensed Certified Orthotist: Prior Level of Function IND with mobility without device Objective Lower Extremity Assessment AROM: WNL PROM: WNL Strength: WNL Sensation: WNL Balance: Not assessed this session Bed Mobility: Supine to sit: Independent Sit to supine: Independent Transfers Sit to stand: Independent Stand to sit: Independent Ambulation Pt ambulates 50ft with multiple turns without device with SBA. As pt becomes more fatigued PROCUREMENT SERVICES MANAGER provided due to increased lateral sway. Verbal [...] of Care supervision is transferred to a [facility] Therapy Services Physical Therapist. Goals [...] Observed: 10/06/2024 8:59 AM Status: COMPLETED Source: [facility] Pulmonary Medicine [address] [place] [address] Patient - Karina Fernando - 1950 Date of Admission - 10/05/2024 8:10 PM Date of Evaluation - 10/06/2024 [facility] A Hospital Day - 1 Consulting [...] to the emergency department at [facility] with worsening left shoulder, back, lung pain and lightheadedness when standing. Reportedly, she had also been experiencing voice changes and difficulty swallowing both liquids and solids with some swelling since February 2024. She is also been experiencing worsening headache, sensation of vertigo, ringing in her left ear, sensation of falling to the left side. At the [place] emergency department, she underwent a chest x-ray which demonstrated a large left-sided pleural effusion and so was sent for management to the [facility]. When I examined her this morning, she [...] previous hospital admission at the [facility] afebrile [address] chest had [...] Multiple Vitamin (multivitamin) capsule 1 capsule, Daily Pie Town-3 Fatty Acids (OMEGA 3 500 PO) Daily [...] Observed: 10/06/2024 8:44 AM Status: COMPLETED [facility] Patient arrived to radiology department (dept) for [...] [place] Speech-Language Pathology SPEECH LANGUAGE PATHOLOGY Formerly [facility] Modified Barium Swallow Study Patient Name: Karina Fernando Evaluation Date: 10/06/2024 Date of : 1950 Admission Date: 10/05/2024 8:10 PM Age: 73 y.o. [facility] A IMPRESSION: The patient presents with [...] contrast enters the airway. No further skilled WARHEAD MAINTENANCE SPECIALIST indicated at this time. Please reconsult should [...] and other work up. She presented to [place] ED - with worsening left shoulder, back [...] Unable to obtain labs and imaging from [place] - Was told she has a complete [...] Goal: To have some coffee Therapy Time WARHEAD MAINTENANCE SPECIALIST Individual Minutes Time In: 0840 Time Out: 0900 Minutes: 20 Charis Barron, CCC-WARHEAD MAINTENANCE SPECIALIST COMPREHENSIVE METABOLIC PANEL Collected: 10/06/2024 4 :39 AM Status: F Source: [facility] TYPE CODE TESTS RESULT OUT OF RANGE REFERENCE UNITS LAB [id number] SODIUM 141 136-145 mmol/L LAB 5429426 POTASSIUM 3.3 Low 3.5-5.1 mmol/L Result Comment: Plasma potas sium values may be up to 0.5 mmol/L lower than serum values. LAB 8126712 CHLORIDE 106 98-107 mmol/L LAB 3889920 CARBON DIOXIDE 27 23-31 mmol/L LAB [id number] ANION GAP (GOLD, CALCULATED) 8 3-13 mmol/L LAB 7048002 UREA NITROGEN 8 Low 9-23 mg/dL LAB 0870225 CREATININE 0.83 0.57-1.11 mg/dL LAB 2987723 GLUCOSE 92 82-115 mg/dL LAB 6078010 CALCIUM 9.0 8.8-10.0 mg/dL LAB 1034369 AST (SGOT) 17 <34 U/L LAB 6961990 ALT 9 <30 U/L LAB 7227343 ALKALINE PHOSPHATASE 45 40-150 U/L LAB 7937254 ALBUMIN 3.0 Low 3.4-4.8 g/dL LAB 6965476 BILIRUBIN, TOTAL 0.3 <1.2 mg/dL LAB 0369950 TOTAL PROTEIN 6.2 Low 6.4-8.3 g/dL LAB 7079341 GLOMERULAR FILTRATION RATE ML/MIN/1.73 SQ M.PREDICTED 75.0 >60.0 mL/min/1. 73m*2 Result Comment: Calculation based on the Chronic Kidney Disease Epidemiology Collaboration (CKD-EPI) equation refit without adjustment for race Performed By: #### [id number], L AB17 #### Header Up: GUERDA WEBBER ([id number]) [facility] ([address] MAGNESIUM Collected: 4:39 AM Status: F Source: [facility] TYPE CODE TESTS RESULT OUT OF RANGE REFERENCE UNITS LAB [id number] MAGNESIUM 1.9 1.6-2.6 mg/dL Result Comment: ORDER COMMEN TS: Higher values can be expected in females during menses. Performed By: #### SVP201, L AB17 #### Header Up: GUERDA WEBBER ([id number]) [facility] ([facility]) [address] [place] [address] CBC WITH AUTO DIFFERENTIAL Collected: 10/06/2024 4:39 AM Status: F Source: [facility] TYPE CODE TESTS RESULT OUT OF RANGE REFERENCE UNITS LAB 5333041 WBC 3.5 Low 3.6-10.7 10*3/uL LAB 7957657 RBC 4.25 3.80-5.20 10*6/uL LAB 0796224 HEMOGLOBIN 11.0 Low 11.7-16.0 g/dL LAB 3022645 HEMATOCRIT 34.4 Low 35.0-47.0 % LAB 9301689 MCV 80.9 77.0-99.0 fL LAB 7159262 MCH 25.9 Low 26.0-34.0 pg LAB 1264931 MCHC 32.0 30.5-36.0 % LAB 3028882 RDW 18.8 High 11.5-15.0 % LAB 5159289 PLATELET COUNT 226 140-440 10*3/uL LAB 6880572 MPV 8.9 Low 9.0-12.7 fL LAB 254 NRBC 0.0 0.0-2.0 /100 WBCs LAB 2954677 NEUTROPHILS RELATIVE 61.9 38.0-82.0 % LAB 9367531 LYMPHOCYTES RELATIVE 20.2 15.0-45.0 % LAB 4453777 MONOCYTES RELATIVE 16.4 High 5.0-13.0 % LAB 7106053 EOSINOPHILS RELATIVE 0.6 0.0-6.0 % LAB 4178069 BASOPHILS RELATIVE 0.6 0.0-2.0 % LAB 8804869 IMMATURE GRANS % 0.3 0.0-2.0 % LAB 0228761 NEUTROPHILS ABSOLUTE 2.2 1.8-7.5 10*3/uL LAB 5811803 LYMPHOCYTES ABSOLUTE 0.7 Low 1.0-4.3 10*3/uL LAB 5992195 MONOCYTES ABSOLUTE 0.6 0.0-0.9 10*3/uL LAB 7285805 EOSINOPHILS ABSOLUTE 0.0 0.0-0.5 10*3/uL LAB 1244631 BASOPHILS ABSOLUTE 0.0 0.0-0.2 10*3/uL LAB 328038 IMMATURE GRANS ABSOLUTE 0.0 <0.1 10*3/uL Performed By: #### [id number] # ### Header Up: GUERDA WEBBER ([id number]) [facility] ([facility]) [address] [place] [address] 30 Observed: 10/06/2024 1:01 AM Status: COMPLETED [...] and other work up. She presented to [place] ED - with worsening left shoulder, back [...] Unable to obtain labs and imaging from [place] - Was told she has a complete [...] capsule Take 1,000 Units by mouth daily. Srwiruxkkfs-Opellxjmz-Drakuu (Trelegy Ellipta) 100-62.5-25 MCG/ACT aerosol powder Inhale [...] capsule Take 1 capsule by mouth daily. Pie Town-3 Fatty Acids (OMEGA 3 500 PO) Take [...] suspicion of a metastatic process. Will need WARHEAD MAINTENANCE SPECIALIST and MBSS for assessment. - Lightheadedness upon [...] as no imaging on file given at [place]. Follow up labs with day team. Thyroid [...] recommended cutting back to 10 mg PO dnoahue - Trazadone 200 mg PO nightly - [...] Pending the following - s/p pulmonology and WARHEAD MAINTENANCE SPECIALIST evaluation Total time spent (which include face [...] - DO NOT do CPR, intubation] [_] [DNR-COOPER APPRENTICE - Comfort care only] [_] DNR form [...] Sushila Tam MD Division of Hospitalist Medicine [facility] 36 Observed: 10/05/2024 4:00 PM Status: COMPLETED [facility]: [facility] her and her Mother are at [facility]. Told by the Dr her Mother isn't leaving anytime soon. Her Mother had a CXR and her L lung was completely white. They are now waiting on CT results. Her Mother will eventually be transferred over to [facility] when a bed opens. Explains Her Mother wants back on Symbicort. 36 Observed: 10/05/2024 1:52 PM Status: COMPLETED Source: [facility] Patient is active with Brenda PENDLETON and ALEXUS for EBUS/ENB 97444/01309 per code check 36 Observed: 10/05/2024 1:22 PM Status: COMPLETED Source: [facility] notified. Said She i s going to take her Mom to the ER here shortly.Needs to discuss with her Mother what to do with the Symbicort and will let us know. 36 Observed: 10/05/2024 1:10 PM Status: COMPLETED Source: [facility] Instructions EBUS Endobronchial Ultrasound Procedure Date: October 09, 2024 Time: 1:30 PM Arrival Time: 12:00 PM Physician: Dr. Mejia Location: [facility], Endoscopy Department, [address] [place], [place] [id number] Please arrive at the hospital registration desk 1.5 hours prior to scheduled start of procedure. Make sure you have a known responsible adult to transport you home from the hospital as you will not be permitted to drive. Your procedure will be cancelled if you do not have someone to take you home. You can only use a taxi/bus/Uber/medical rail transportation tabeler if you have a known responsible adult to go with you. You may use [employer]. Each patient will receive one validation ticket for [employer]. Do not drink alcohol before or [...] at 11:[address] Johnson at [address] [place] [address], [phone] to discuss results. Things to look for [...] If you have any questions, please call: [phone] RN Clinical Coordinator [facility] Pulmonary Medicine [address] [place] [address], [address] [place], [place] [id number] Procedure placed on physician's outlook calendar? yes [...] Observed: 10/05/2024 8:49 AM Status: COMPLETED Source: [facility] Chief complaint/symptom: Pt' s Daughter, Diaz [...] compromised to dial 911 prior to advisement. [phone] Observed: 10/05/2024 8:23 AM Status: COMPLETED Source: [facility] [facility] PA place to find out Formula ry alternative. 36 Observed: 10/03/2024 3:12 PM Status: COMPLETED Source: [facility] [facility] Navigator contacted the offi ce of Rhiannon Georges CNP at [facility]. Requested pulmonary function test and will scanned to media tab when available. PROGRESS NOTE Observed: 10/03/2024 2:30 PM Status: COMPLETED Source: [facility] Cardiovascular Group Cardiology Note DATE of SERVICE:10/03/24 TIME of SERVICE: 2:41 PM Chief Complaint: Chief Complaint Patient presents with New Patient Shortness of Breath >1yr History of PresentIllness: Karina Fernando is a 73 y.o. female with a long history of tobacco use who was evaluated for shortness of breath. 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 She was seen by pulmonary and scheduled for a biopsy also seen by Dr. Fortune. In the meantime however an echocardiogram that was done at [facility] reported a small pericardial effusion and a mass on the patient's right intra-atrial septum. Her biopsy was canceled and she was referred here to cardiology for an evaluation. I reviewed the echocardiogram that was done at [place], there is a very small hemodynamically insignificant [...] Units by mouth daily., Disp: , Rfl: Auylznsjtqy-Fpucfgmcb-Rhdnar (Trelegy Ellipta) 100-62.5-25 MCG/ACT aerosol powder , [...] capsule by mouth daily., Disp: , Rfl: Pie Town-3 Fatty Acids (OMEGA 3 500 PO), Take [...] pericardial effusion with RA collapse. 09/13/24- CTA [facility] Assessment and Plan: BSmall hemodynamically insignificant [...] PM Status: COMPLETED Source: [facility] [id number] Karina Fernando [birth year] F Date Provider Department Center 10/03/2024 06826-BTNGBDQRNAOIRIS LUIS [facility] JERAMIE SHMGCV [address] Family History Problem Relation Age of Onset Cancer Mother Cancer Father No Known Problems Sister No Known Problems Brother Heart disease Brother Family Status - Relation Status Age at Mother Father Sister Alive Brother Alive Brother Alive Level of Service:59056 DC OFFICE/OUTPATIENT NEW MODERATE MDM 45 MINUTES Reason for Visit and Comments: New Patient [542] Shortness of Breath [[id number]] - >1yr 36 Observed: 10/03/2024 1:27 PM Status: COMPLETED [facility] Discussed with Dr. Indu can during [facility] appt. Patient has a pericardial effusion and cardiac lesion. She has been lightheaded for a few days and expedited cardiology eval is recommended. Spoke with cardiology office at [phone] and arranged for appt with Dr. Luis at [address] [facility] [address] Dr. Johnson will send patient right over. 36 Observed: 10/03/2024 12:19 PM Status: COMPLETED Source: [facility] [facility] Navigator received request f [facility] cardiothoracic surgery office to assist with expediting lung nodule clinic evaluation. Patient lives far away and C[facility] is hoping patient can be seen while on campus. Patient was seen by Dr. Silvio Fortune this morning and needs pulmonary evaluation prior to surgical consideration. Verified prior images and reports from [facility] are available for review in PACS. Scanned imaging reports including CT chest imaging, thyroid imaging and provider office notes from medical oncology and pulmonary in [place] to the media tab. Patient will see Dr. Lacho Tillman now to further evaluate left hilar mass and adenopathy first noted on CT imaging 09/13/2024 in [place]. 37 Observed: 10/03/2024 12:15 PM Status: COMPLETED Source: [facility] [facility] YOUR APPOINTMENT TODAY WAS W GAL[place] [facility] LUNG NODULE CLINIC, COPD CLINIC, PULMONARY AND SLEEP MEDICINE OFFICE. PLEASE CALL OUR OFFICE AT [phone] IF YOU HAVE NOT RECEIVED YOUR TEST [...] to make improvements. COVID-19 VACCINATION INFORMATION: PH. [phone] HEALTH.ORG/CORONAVIRUS/VACCINE [facility] Central Scheduling [phone] [facility] Sleep Scheduling [phone] PROGRESS NOTE Observed: 10/03/2024 12:15 PM Status: COMPLETED Source: [facility], Pulmonary Critical Car e Medicine [address] [place], [place] [phone] Pulmonary Patient Visit - New 10/03/2024 Referring Physician: TU HECTOR DO Reason for Referral: SOB History of Present Illness Karina Fernando is a 73 y.o. F with history of recurrent sinus infections, COPD on symbicort/albuterol, HTN who presented for a left hilar mass. Stated that in May she began having shortness of breath which worsened until she went to the ER in [place] in August. Found on CT with a left hilar mass, left upper lobe pleural-based mass, and moderate pericardial effusion. Evaluated by oncology and recommended for PET/CT, MRI brain, and biopsy. Established with pulmonology and had been planned for EBUS in [place] but canceled after TTE demonstrated a right [...] acetaminophen (Tylenol Extra Strength) 500 MG tablet [id number] Yes Take by mouth. Slick Garcia MD Not Taking Active albuterol (Ventolin HFA) 108 (90 Base) MCG/ACT inhaler [id number] Inhale 2 puffs every 4 hours as needed for wheezing or shortness of breath. Rachel Johnson DO Active busPIRone (Buspar) 10 MG tablet [id number] Yes Take 10 mg by mouth 3 times daily as needed. Slick Garcia MD Taking Active cetirizine (ZyrTEC) 10 MG tablet [id number] Yes Take 10 mg by mouth daily. Slick ProviderMD Taking Active cholecalciferol (Vitamin D-3) 25 MCG (1000 UT) capsule [id number] Yes Take 1,000 Units by mouth daily. Historical ProviderMD Active Muhwnzckgfw-Rizdhtyod-Svjcpw (Trelegy Ellipta) 100-62.5-25 MCG/ACT aerosol powder [id number] Inhale 1 Inhalation daily. Rachel Johnson, Active gabapentin (Neurontin) 300 MG capsule [id number] Yes Take 300 mg by mouth 3 times daily. Slick ProviderMD Not Taking Active hydroCHLOROthiazide (HYDRODiuril) 25 MG tablet [id number] Yes Take 25 mg by mouth daily. Slick ProviderMD Taking Active loratadine (Claritin) 5 MG chewable tablet [id number] Yes Chew 5 mg daily. Slick ProviderMD Active Melatonin 2.5 MG chewable tablet [id number] Yes Chew Daily as needed. Slick Garcia MD Not Taking Active meloxicam (Mobic) 15 MG tablet [id number] Yes Take by mouth daily. Slick ProviderMD Not Taking Active Multiple Vitamin (multivitamin) capsule [id number] Yes Take 1 capsule by mouth daily. Historical ProviderMD Active Pie Town-3 Fatty Acids (OMEGA 3 500 PO) [id number] Yes Take by mouth daily. Historical ProviderMD Taking Active oxyCODONE-acetaminophen (Percocet) 5-325 MG tablet [id number] Yes Historical ProviderMD Taking Active simvastatin (Zocor) 20 MG tablet [id number] Yes Take 20 mg by mouth Nightly. Historical ProviderMD Taking Active traZODone (Desyrel) 100 MG tablet [id number] Yes Take 100 mg by mouth Nightly. Historical ProviderMD Taking Active valACYclovir (Valtrex) 500 MG tablet [id number] Yes Take by mouth daily. Historical ProviderMD Not Taking Active Vitamin E 268 MG (400 UNIT) capsule [id number] Yes Take by mouth daily. Historical ProviderMD [...] PM Status: COMPLETED Source: [facility] [id number] AbdullahiAlexusKarina M [birth year] F Date Provider Department Center 10/03/2024 53578-PEVKZAS-LQHYMLZHI, C*[facility] PUL None Family History Problem Relation Age of Onset Cancer Mother Cancer Father No Known Problems Sister No Known Problems Brother Heart disease Brother Family Status - Relation Status Age at Mother Father Sister Alive Brother Alive Brother Alive Level of Service:81676 DC OFFICE/OUTPATIENT NEW MODERATE MDM 45 MINUTES Reason for Visit and Comments: New Patient [542] 36 Observed: 10/03/2024 12:04 PM Status: COMPLETED Source: [facility] Britely [facility] Orders Placed This Encounter Procedures MR brain [...] Observed: 10/03/2024 11:15 AM Status: COMPLETED Source: [facility] Britely [facility] CARDIOVASCULAR & THORACIC SURGERY [address] [facility] [facility] [address] Dept: [phone] Dept Loc: [phone] Visit type: New Reason for Visit: AP [...] effusion. Per note, pt had presented to [place] ED in August 2023 for dyspnea. CTA [...] tablet, Take by mouth., Disp: , Rfl: Pie Town-3 Fatty Acids (OMEGA 3 500 PO), Take [...] This note may have been dictated using [employer] Medical Practice Edition 2.6 and/or Highlighter Voice Recognition Feature. The document was proofread, however unrecognized voice recognition apartment community manager errors may be present. OFFICE VISIT Observed: 10/03/2024 11:15 AM Status: COMPLETED Source: [facility] [id number] Karina Fernando [birth year] F Date Provider Department Center 10/03/2024 33282-ACTVIKMSILVIO [facility] [place] Family History Problem Relation Age of Onset Cancer Mother Cancer Father No Known Problems Sister No Known Problems Brother Heart disease Brother Family Status - Relation Status Age at Mother Father Sister Alive Brother Alive Brother Alive Level of Service:40167 DC OFFICE/OUTPATIENT NEW HIGH MDM 60 MINUTES Reason for Visit and Comments: New Patient [542] US THYROID Observed: 09/19/2024 11:00 AM Status: F Source: [facility] ORIGINAL EXAMINATION: ULTRASOUND OF THE THYROID [...] Collected: 09/13/2024 12:53 PM Status: F Source: [facility] TYPE CODE TESTS RESULT OUT OF [...] PBNP, GFR, TSH, FT4, DIFF, MORPH #### [address] [address] .MORPH Collected: 09/13/2024 12:53 PM Status: F Source: [facility] TYPE CODE TESTS RESULT OUT OF RANGE REFERENCE UNITS LAB PLTE(LOINC) Platelet Estimate Normal LAB ANIS(LOINC) Anisocytosis 2+ LAB MICYT(LOINC) Microcytosis 2+ Performed By: #### CMP, CBC, PBNP, GFR, TSH, FT4, DIFF, MORPH #### [address] [address] CBC Collected: 12:53 PM Status: F Source: [facility] TYPE CODE TESTS RESULT OUT OF [...] PBNP, GFR, TSH, FT4, DIFF, MORPH #### [address] [address] TSH Collected: 12:53 PM Status: F Source: [facility] TYPE CODE TESTS RESULT OUT OF RANGE REFERENCE UNITS LAB TSH(LOINC) TSH 0.88 0.36-3.74 mcIU/mL Performed By: #### CMP, CBC, PBNP, GFR, TSH, FT4, DIFF, MORPH #### [address] [address] FT4 Collected: 12:53 PM Status: F Source: [facility] TYPE [facility] – [place] TESTS RESULT OUT OF RANGE REFERENCE UNITS LAB FT4(LOINC) Free T4 1.15 0.76-1.46 ng/dL Performed By: #### CMP, CBC, PBNP, GFR, TSH, FT4, DIFF, MORPH #### [address] [address] CMP Collected: 09/13/2024 12:53 PM Status: F Source: [facility] TYPE CODE TESTS RESULT OUT OF [...] PBNP, GFR, TSH, FT4, DIFF, MORPH #### [address] [address] PBNP Collected: 5 12:53 PM Status: F Source: [facility] TYPE CODE TESTS RESULT OUT OF RANGE REFERENCE UNITS LAB PBNP(LOINC) N-Terminal proBNP 235 High 0-125 pg/mL Result Comment: NT-proBNP re sults of less than 300 pg/mL effectively rules out acute congestive heart failure with 99% negative predictive value. Performed By: #### CMP, CBC, PBNP, GFR, TSH, FT4, DIFF, MORPH #### [facility] [address] [place], [place] [address] .GFR Collected: 12:53 PM Status: F Source: [facility] TYPE CODE TESTS RESULT OUT OF [...] PBNP, GFR, TSH, FT4, DIFF, MORPH #### [address] [place], [place] [address] XR CHEST 2 VIEWS Observed: 09/13/2024 9:30 AM Status: F Source: [facility] ORIGINAL EXAMINATION: TWO XRAY VIEWS OF [...] Observed: 09/02/2024 3:28 PM Status: F Source: [facility] SARS-COV-2 (AGENT OF COVID-1 9) RNA: Not detectedINFLUENZA A RNA: Not detectedINFLUENZA B RNA: Not detectedRESPIRATORY SYNCYTIAL VIRUS (RSV) RNA: Not detected Performed By: #### [id number] # ### [facility] CLIA [id number] [address] [place] [address] OF [facility] PROGRESS Observed: 09/02/2024 1:32 PM Status: COMPLETED Source: [facility] HNO ID: [id number] Author: DUNG LITTLEJOHN MD Service: ? Author [...] Observed: 09/02/2024 1:15 PM Status: COMPLETED Source: [facility] Office Visit (WSTR) KARINA FERNANDO ([id number]) 1950 F Date Time Provider Department 09/02/24 1:15 PM UDNG LITTLEJOHN [facility] During your visit today, we [...] AND RSV PCR, ROUTINE [SQCVFLRS] Order #: [id number]. #:[id number] doxycycline monohydrate (MONODOX) 100 mg capsuleTake 1 [...] 09/02/2024 Noted Resolved MYALGIA AND MYOSITIS NOS [LNB6934] TOBACCO USE DISORDER [F17.200] JOINT PAIN-UNSPEC [M25.50] [...] Observed: 05/31/2024 5:45 PM Status: COMPLETED Source: [facility] HNO ID: [id number] Author: SERGIO MOHR PA-C Service: ? Author Type: Physician Small Boat Engineer Type: Progress Notes Filed: 05/31/2024 17:48 Note Text: This note was created using [employer]. Subjective Karina Fernando is a 73 year [...] Observed: 2023 5:18 PM Status: F Source: [facility] * * *Final Report* * * [...] IMPRESSION: Mild left base atelectasis or infiltrate [employer] [facility] Transcribe Date/Time: May 31 2024 5:27P Dictated by : JOSELYN VIDALES MD This examination was interpreted and the report reviewed and electronically signed by: JOSELYN VIDALES MD on May 31 2024 5:27PM EST [id number] Observed: 05/31/2024 5:00 PM Status: COMPLETED Source: [facility] HNO ID: [id number] Author: RIO PIKE RT(R) Service: ? Author Type: Weaver Hand Loom Type: Progress Notes Filed: 05/31/2024 17:17 Note [...] PATIENT PRESENTS WITH AN IMPLANTABLE OR ATTACHED ANIMAL TECHNICIAN: No RADIOLOGY DEPARTMENT: General X-ray: Exam(s) Completed: Chest X-Ray PERIPHERAL IV DATA: Not applicable SIGNED BY: RT Yoko(R) May 31, 2024 5:12 PM CNOV Observed: 05/31/2024 4:45 PM Status: COMPLETED Source: [facility] Office Visit (WSTR) KARINA FERNANDO ([id number]) 1950 F Date Time Provider Department 05/31/24 4:45 PM [facility] today, we recorded the following information about you: Temperature Pulse Respiration Blood pressure 99.1 degrees 94/minute 18/minute 140/84 Weight 75.4 kg Sergio Mohr PA-C 05/31/2024 5:48 PM Signed This note was created using [employer]. Subjective Karina Fernando is a 73 year [...] imaging study [R91.8] Order(s):XR CHEST 2V FRONTAL/LAT [3221127] Order #: [id number] FUTURE doxycycline (VIBRA-TABS) 100 mg tabletTake 1 [...] 05/31/2024 Noted Resolved MYALGIA AND MYOSITIS NOS [REL9618] TOBACCO USE DISORDER [F17.200] JOINT PAIN-UNSPEC [M25.50] [...] / CODE REACTION SEVERITY SOURCE 05/31/2024 DRUG INGREDI/72561 1003(SNOMED CT) PREDNISONE OTHER: SEE C [facility] 01/12/2023 DRUG/23891874 3(SNOMED CT) ALENDRONATE Myalgia [facility] 09/27/2018 DRUG INGREDI/34632 1003(SNOMED CT) FAMCICLOVIR UNKNOWN [facility] 09/27/2018 DRUG INGREDI/81748 1003(SNOMED CT) GABAPENTIN UNKNOWN [facility] 10/06/2012 DRUG/31680978 3(SNOMED CT) OXYCODONE HKC-LEBEGEWNG-JXI Vomiting [facility] 11/18/2006 DRUG INGREDI/10620 1003(SNOMED CT) CEFACLOR HIVES [facility] 11/18/2006 DRUG/94673611 3(SNOMED CT) TRIAMTERENE-HYDROCHLO ROTHIAZID RASH [facility] 11/18/2006 DRUG/57061730 3(SNOMED CT) ERYTHROMYCIN GI UPSET [facility] 11/18/2006 Drug Class/7617833 03(SNOMED CT) PENICILLINS HIVES [facility] 11/18/2006 DRUG INGREDI/88999 1003(SNOMED CT) TRAMADOL HCL Vomiting [facility] ENCOUNTERS ADMIT/DISCHARGE ACCOUNT NUMBER ADMITTING ENCOUNTER CLASS LOCATION SOURCE 04/09/2025/04/09/20 [id number] Ambulatory NUTRIOSO MAINBuilding :[facility] 04/02/2025/04/06/20 [id number] Ambulatory NUTRIOSO MAINBuilding :[facility] 03/12/2025/03/12/20 [id number] Ambulatory NUTRIOSO MAINBuilding :[facility] 11/24/2024/11/25/19 [id number] Emergency ABuilding:[facility] 10/26/2024/10/27/19 [id number] Ambulatory Buildin [id number] [facility] 10/24/2024/10/25/19 [id number] Ambulatory Buildin [id number] [facility] 10/20/2024/10/21/19 25 [id number] Ambulatory Buildin [id number] [facility] 10/17/2024/10/18/19 25 [id number] Ambulatory Buildin [id number] [facility] 10/17/2024/10/18/19 25 [id number] Ambulatory Buildin [id number] [facility] 10/09/2024/10/10/19 25 [id number] CAIN MEJIA Ambulatory Buildin [id number]: SBAINORBed : 4206 [facility] 10/06/2024 [id number] Ambulatory ABuilding:[facility] 10/05/2024/10/07/19 25 [id number] EMILE HORNE Ambulatory Buildin [id number]: [facility] [id number]: 4-439 A [facility] 10/03/2024/10/04/19 25 [id number] Ambulatory Buildin [id number] [facility] 10/03/2024/10/04/19 25 [id number] Ambulatory Buildin [id number] [facility] 10/03/2024/10/04/19 25 [id number] Ambulatory Buildin [id number] [facility] 09/25/2024/09/26/19 25 [id number] Ambulatory NUTRIOSO MAINBuilding :[facility] 09/19/2024/09/20/19 25 [id number] Ambulatory NUTRIOSO MAINBuilding :[facility] 09/13/2024/09/18/19 25 [id number] Ambulatory NUTRIOSO MAINBuilding :[facility] 09/13/2024/09/13/19 25 [id number] Ambulatory NUTRIOSO MAINBuilding :[facility] 09/02/2024/09/02/19 25 [id number] [facility] 05/31/2024/05/31/20 24 [id number] [facility] 05/31/2024/05/31/20 [id number] [facility] PAYERS ENCOUNTER GUARANTOR PAYER SUBSCRIBER SOURCE 04/09/2025 KARINA BRUCE: [place] [address]Bgl: (HP) Primary Insurance:[employer] BLUE CROSS INSCOPolicy Number: [id number] Date:1134-28-87Prqz Name:[place] [address]TB: KARINA BROWNB: [id number] [place] [address]Dmm: (HP) (WP) [facility] 04/02/2025 KARINA BROWNB: [place] [address]Yjy: (HP) Primary Insurance:[employer] BLUE CROSS INSCOPolicy Number: [id number] Date:2654-32-95Uuwt Name:[place] [address]ZN: KARINA BROWNB: [id number] [facility] [facility] [place] [address]Wmh: (HP) (WP) [facility] 03/12/2025 KARINA BROWNB: [place] [address]Hoj: (HP) Primary Insurance:[employer] BLUE CROSS INSCOPolicy Number: [id number] Date:6461-77-32Jcjl Name:[place] [address]YM: KARINA BROWNB: [id number] [place] [address]Rzl: (HP) () [facility] 11/24/2024 KARINA BROWNB: [place] [address]Cxd: (HP) Primary Insurance:[place] INSCOPolicy Number: [id number] Date:5993-67-35Adnb Name:CHERYL [place]IGE [address], [place] [address]GL: KARINA FERNANDOB: [id number] [place] [address]Hme: (HP) () [facility] 10/26/2024 Primary Insurance:ANTHEM MEDICARE ADVANTAGEPolicy Number: [id number] Date:4254-75-17Dtwh Name:Medicare HMO KARINA FERNANDOB: [id number] [place], [place] [address] [place] [address] 10/24/2024 Primary Insurance:KRAIG MEDICARE ADVANTAGEPolicy Number: [id number] Date:3325-33-68Ijic Name:Medicare HMO KARINA FERNANDOB: [id number] [place], [place] [address] [place] [address] 10/20/2024 Primary Insurance:[facility] MEDICARE ADVANTAGEPolicy Number: [id number] Date:0118-84-81Jafp Name:Medicare HMO KARINA Maxwell MELISSACOCOB: [id number] [place] [address] [facility] 10/17/2024 Primary Insurance:[facility] MEDICARE ADVANTAGEPolicy Number: [id number] Date:4217-36-92Ednr Name:Medicare HMO KARINA Maxwell KEVINB: [id number] [place] [address] [facility] 10/17/2024 Primary Insurance:EPIFANIO MEDICARE ADVANTAGEPolicy Number: [id number] Date:0500-93-55Whma Name:Medicare O KARINA BROWNB: [id number] [place] [address] [facility] 10/09/2024 Primary Insurance:EPIFANIO MEDICARE ADVANTAGEPolicy Number: [id number] Date:7009-81-54Vknh Name:Medicare O KARINA BROWNB: [id number] [facility] [address] [facility] 10/06/2024 KARINA BROWNB[facility] [place] [place] [address]Acj: (HP) Primary Insurance:EPIFANIO [place] INSCOPolicy Number: [id number] Date:1665-78-97Sojy Name:[facility] [place] [address], [place] [address]ZB: KARINA BROWNB: [id number] [place] [address]Kyr: (HP) () [facility] 10/05/2024 Primary Insurance:[employer]RAIG[place] MEDICARE ADVANTAGEPolicy Number: [id number] Date:9082-33-97Drtj Name:Medicare O KARINA BROWNB: [id number] [place] [address] [facility] 10/03/2024 Primary Insurance:EPIFANIO MEDICARE ADVANTAGEPolicy Number: [id number] Date:2831-09-86Fcep Name:Medicare O KARINA BROWNB: [id number] [place] [address] [facility] 10/03/2024 Primary Insurance:EPIFANIO MEDICARE ADVANTAGEPolicy Number: [id number] Date:8933-60-93Nimz Name:Medicare HMO KARINA BROWNB: [id number] [place] [address] [facility] 10/03/2024 Primary Insurance:KRAIGEM MEDICARE ADVANTAGEPolicy Number: [id number] Date:0763-53-52Addd Name:Medicare HMO KARINA BROWNB: [id number] [place] [address] [facility] 09/25/2024 KARINA BROWNB: [place] [address]Fxn: (HP) Primary Insurance:[place] INSCOPolicy Number: [id number] Date:6711-08-30Olpw Name:[address] [address]WZ: KARINA BROWNB: [id number] [place] [address]Htx: (HP) (WP) [facility] 09/19/2024 KARINA BROWNB: [place] [address]Efm: (HP) Primary Insurance:[facility] INSCOPolicy Number: [id number] Date:4085-97-58Zdwt Name:[facility] [place] [address]BE: KARINA BROWNB: [id number] [place] [address]Thv: (HP) (WP) [facility] 09/13/2024 KARINA BROWNB: [place] [address]Wxz: (HP) Primary Insurance:[employer] BLUE CROSS INSCOPolicy Number: [id number] Date:9951-87-33Jrbn Name:[place] [address]GK: KARINA BROWNB: [id number] [place] [address]Uhs: (HP) (WP) [facility] 09/13/2024 KARINA FERNANDOB: [place] [address]Kzx: (HP) Primary Insurance:[employer]TH BERTRAND [place] INSCOPolicy Number: [id number] Date:4338-89-16Oqtw Name:SAMUEL [place], [place] [address]UZ: KARINA FERNANDOB: [id number] [place] [address]Frg: (HP) (WP) [facility] 09/02/2024 Primary Insurance:ANTH MEDICARE ADVANTAGE OPolicy Number: [id number] Date:1357-90-86Pqbz Name:Krunal FERNANDOTERRANCE: [id number] [place] [address] [facility] 05/31/2024 Primary Insurance:[employer]M MEDICARE ADVANTAGE HMOPolicy Number: [id number] Date:7068-28-92Zgop Name:Krunal FERNANDOTERRANCE: [id number] [place] [address] [facility] 05/31/2024 Primary Insurance:[employer] MEDICARE ADVANTAGE HMOPolicy Number: [id number] Date:7888-44-57Uwyl Name:Krunal BRUCE: [id number] [place] [address] [facility]
[2025-04-14] VITALS (7 sets, daily range): BP systolic 91–137; BP diastolic 71–100; PULSE 85–113; RESP 13–18; TEMP 36.6–37.1; O2SAT 95–100; BMI 28.0
--- NOTE | 2025-04-14 12:35 | RAD_ITS ---
PROCEDURE: CHEST PA AND LATERAL 04/14/2025 REASON FOR EXAM: WEAKNESS TECHNIQUE: Procedure Code: RADCXR Modality: DX Procedure: CHEST PA AND LATERAL COMPARISON: 11/16/2024 FINDINGS: Hardware: Right-sided MediPort unchanged. Heart: The heart size is normal. Mediastinum: The mediastinal contour is unremarkable. Lungs: The lungs are clear. No pneumothorax or pleural effusion. Bones: Degenerative changes are identified within the thoracic spine. Chronic left rib fracture deformities. RAD/Chest PA and Lateral IMPRESSION: NO ACUTE FINDINGS. Reading [facility]
--- NOTE | 2025-04-14 12:35 | EKG12_ITS ---
Test Reason : GENERAL ILLNESS Blood Pressure : */* mmHG Vent. Rate : 100 BPM Atrial Rate : 100 BPM P-R Int : 148 ms QRS Dur : 84 ms QT Int : 342 ms P-R-T Axes : 73 -4 56 degrees QTcB Int : 441 ms Normal sinus rhythm Cannot rule out Inferior infarct , age undetermined Possible Anterior infarct (cited on or before 10-Apr-2025) Abnormal ECG Confirmed by SOPHIE HAN ([id number]), state editor KELLY HILL ([id number]) on 04/16/2025 8:44:04 AM Referred By: Confirmed By: SOPHIE HAN
--- NOTE | 2025-04-14 12:40 | EX.ED.DYSGE1 ---
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 Has finished her chemotherapy currently is on monthly immunotherapy. Also has chronic bilateral lower extremity edema. Complaining about generalized malaise. 2 recent falls. A burn on her right thigh from recently spilling hot soup on her thigh. Said nausea and vomiting last several days. No melena. No hematemesis. No fever. No dysuria. Prior similar symptoms: No Recent Illness/Hospitalization: Yes PFSH [facility] Medical History Abdominal pain Hypokalemia Partial small bowel obstruction Delayed surgical wound healing Constipation Pericardial effusion Hilar mass Right atrial mass Genital herpes Osteoporosis Migraine Hyperlipidemia Hiatal hernia GERD (gastroesophageal reflux disease) Depression Chronic kidney disease (CKD) Bilateral leg edema Thyroid enlargement Hypokalemia Wears dentures Wears glasses Post-menopausal Cancer History of steroid therapy Arthritis Back pain History of hiatal hernia Gastric reflux Former smoker On home oxygen therapy Asthma Shortness of breath on exertion Hoarseness Chronic cough History of edema Cardiology follow-up encounter History of echocardiogram Hypertension Coughing up blood Chest pain Anemia Encounter for antineoplastic immunotherapy Encounter for chemotherapy management Small cell lung cancer Encounter for education 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 COPD (chronic obstructive pulmonary disease) Home Medications ?Medication ?Instructions ?Recorded ?Last Taken ?Type albuterol sulfate 90 mcg/actuation 1 - 2 puff inhalation Q4H PRN PRN 08/24/19 Unknown History aerosol inhaler Sob &/Or Wheezing loratadine 10 mg tablet 10 mg PO DAILY allergy 08/24/19 04/13/25 History buspirone 10 mg tablet 10 mg PO TID PRN anxiety 11/13/24 04/13/25 History pantoprazole 40 mg tablet,delayed 40 mg PO QDAY gerd 11/13/24 04/13/25 History release docusate sodium 100 mg capsule 100 mg PO BID constipation 11/17/24 04/13/25 History (Dulcolax Stool Softener (docusate)) trazodone 100 mg tablet 150 mg PO QHS sleep 11/17/24 04/13/25 History cyanocobalamin (vitamin B-12) 50 50 mcg PO DAILY 02/11/25 04/13/25 History mcg tablet durvalumab 50 mg/mL intravenous 1,500 mg IV Q14D 02/11/25 Unknown History solution zinc citrate, zinc oxide 50 mg 50 mg PO DAILY supplement 02/11/25 04/13/25 History tablet prochlorperazine maleate 10 mg 10 mg PO Q6-8H PRN nausea and 03/06/25 Unknown Rx tablet (Compazine) vomiting #30 tabs budesonide-formoterol HFA 80 2 puff inhalation BID 04/10/25 04/13/25 History mcg-4.5 mcg/actuation aerosol inhaler (Symbicort) famotidine 10 mg tablet 10 mg PO BID 04/10/25 04/13/25 History furosemide 40 mg tablet 40 mg PO DAILY swelling #90 tabs 04/10/25 04/13/25 Rx metoprolol tartrate 25 mg tablet 25 mg PO BID #60 tabs 04/10/25 04/13/25 Rx potassium chloride 20 mEq 20 meq PO BID #30 tabs 04/10/25 04/13/25 Rx tablet,extended release(part/cryst) valacyclovir 500 mg tablet 500 mg PO BID 04/10/25 04/13/25 History oxycodone-acetaminophen 10 mg-325 1 tab PO 4X/DAY PRN PRN pain 04/14/25 04/14/25 History mg tablet spironolactone 50 mg tablet 50 mg PO DAILY 04/14/25 04/13/25 History Allergy/AdvReac Type Severity Reaction Status Date / Time calcipotriene Allergy Severe Rash Verified 04/10/25 09:06 Opioids - Morphine Analogues Allergy Severe Hives Verified 04/10/25 09:06 alendronate sodium (From Allergy Pain in Verified 04/10/25 09:06 Fosamax) joints cefaclor (From Ceclor) Allergy Hives Verified 04/10/25 09:06 ezetimibe Allergy Other Verified 04/10/25 09:06 Penicillins Allergy Hives Verified 04/10/25 09:06 tramadol HCl (From Ultram) Allergy Hives Verified 04/10/25 09:06 hydrochlorothiazide AdvReac Unknown reaction Verified 04/10/25 09:06 erythromycin base AdvReac Nausea Verified 04/10/25 09:06 Family History Mother Leukemia Osteoporosis Thyroid disorder Grandfather Brain cancer Father Respiratory disease Brother Heart disease Surgical History History of tubal ligation History of bunionectomy History of carpal tunnel surgery of right wrist History of eyelid surgery History of shoulder surgery History of carpal tunnel release History of bilateral knee replacement H/O breast biopsy History of appendectomy Previous back surgery Social History Smoking Status: Former smoker Tobacco: How many years used: 30 alcohol intake: never ROS ROS ED ROS Narrative General malaise. Weakness. Falls. Constitutional Constitutional ED: Denies fever(s) Eyes Eyes: Denies blurry vision ENT ENT ED: Denies ear pain Respiratory/Chest Respiratory/Chest: Denies cough or dyspnea Gastrointestinal Gastrointestinal: Reports nausea and vomiting; Denies abdominal pain, diarrhea or melena Genitourinary Genitourinary ED: Denies dysuria or hematuria Musculoskeletal Musculoskeletal: Denies arthralgias or back pain Integumentary Denies abscess Neurologic Neurologic: Denies headache(s) Psychiatric Psychiatric: Denies anxiety or depression Endocrine Endocrinology: Denies cold intolerance Hematologic/Lymphatic Hematologic/Lymphatic: Reports none Allergic/Immunologic Allergic/Immunologic ED: Denies mouth swelling, tongue swelling or urticaria EXAM Physical Exam Narrative Exam Narrative: [id number] female lying in bed family at bedside. Vital signs are stable except her blood pressure is 96/76 but daughter said that is her baseline. Pulse ox 97% on room air no signs hypoxia. H EENT exam pupils round react light. Dry mucous membranes. Neck nontender no JVD. No lymphadenopathy. Lungs clear to auscultation bilaterally. Heart tachycardic 107 no murmur. Chest wall ribs nontender. Abdomen soft, nontender, nondistended, normal bowel sounds without peritoneal signs. No localizing tenderness. No obstruction. Moving all 4 extremities. 2+ pitting edema both lower extremities. Burn to right proximal mid thigh no infection. Dorsi plantarflexion intact. Normal campus recruiting coordinator strength. Back nontender. Neurologically she is awake and alert. Answering questions following commands. She was unsure of the month she thought it was February and it is actually March. She did know she was in the hospital. And she knew the president denied states when given multiple-choice answers. Const Vital Signs: 04/14/25 12:16 04/14/25 12:22 04/14/25 14:16 Temperature 97.8 F Temperature Source Oral Pulse Rate 107 H 100 Respiratory Rate 17 14 Respiratory Pattern Normal Blood Pressure 96/76 91/71 Blood Pressure Mean 82 77 Pulse Ox 97 100 Oxygen Delivery Method Room Air Room Air Positive well nourished and well developed; Negative for cachectic, contractures or unkempt General Appearance ED: well developed and NAD; Negative for unkempt, cachectic, contractures, cyanotic, diaphoretic or pallor Nutritional Appearance: Negative for cachectic HEENT Reports dry mucous membranes Mouth ED: Yes dry mucous membranes Mouth: dry mucous membranes Eyes PERRL and EOMs intact bilaterally Neck no lymphadenopathy, supple and no JVD Chest Wall inspection of chest normal and palpation of chest normal Resp normal respiratory effort and clear to auscultation bilaterally Cardio regular rate, regular rhythm, S1 normal heart sound, S2 normal heart sound and no murmurs GI normal to inspection, nondistended, normoactive bowel sounds, non-tender, non-distended and no masses Auscultation: normoactive bowel sounds Palpation: soft; Negative for tender, guarding or rebound tenderness present Back/Spine no CVA tenderness Extremity Negative for normal to inspection Extremity Narrative: Bilateral 2+ pitting edema. Burn right thigh. General Extremety ED: Yes edema General Extremity: edema Neuro oriented x3 and CN's II-XII intact bilaterally Sensorium / Orientation: alert Motor Exam: strength 5/5 throughout Psych mental status grossly normal Appearance: Negative for unkempt Skin no rashes or lesions noted and skin turgor normal Skin Narrative: Burn right thigh. Old not infected. General Skin Exam: Negative for jaundice or pallor Lesions: No lesion noted Rashes: No rashes noted MDM MDM MDM Narrative Medical decision making narrative: 74-year-old female General Malaise and weakness. Recent falls. History of cancer with mets to her liver. Chronic bilateral lower extremity edema. She undergo workup for possible infection versus dehydration versus electrolyte and maladies versus other. Repeat exam at 3:05 PM. Unchanged. Patient's labs really are not that unremarkable. Spoke to both her and her family. Daughter tells me that she just cannot be at home by herself anymore. She has been sitting in a chair for over a day. She soils her clothing. I will speak to the hospitalist about admission for failure to thrive. 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 She may need placement or at least rehabilitation if possible. History & Record Review Discussion w/independent historian: Patient and Family Additional record(s) reviewed:: Prior inpatient record, Prior outpatient record, Prior ED visit and Prior labs Lab Data Attestation: I reviewed the patient's lab results. Lab results narrative: CBC shows a white count 7.6. H&H 13 and 39. Platelets 207. Electrolytes show sodium 135. Gap 12. BUN and creatinine 28 and 1.2. Glucose 100. Liver enzymes show mildly elevated alk phos of 130 otherwise unremarkable. Lactic acid is normal at 1.3. Urinalysis is normal. No nitrates. No white or red cells. No bacteria. Labs: Laboratory Results - last 24 hr 04/14/25 04/14/25 12:55 14:20 WBC 7.6 RBC 4.32 Hgb 13.3 Hct 39.5 MCV 91.4 MCH 30.8 MCHC 33.7 RDW Std Deviation 61.9 H RDW Coeff of Juan David 18.6 H Plt Count 207 MPV 9.2 Immature Gran % (Auto) 0.500 Neut % (Auto) 71.4 H Lymph % (Auto) 17.3 L Sac % (Auto) 10.4 H Eos % (Auto) 0.1 Baso % (Auto) 0.3 Absolute Neuts (auto) 5.5 Absolute Lymphs (auto) 1.32 Nucleated RBC % 0 Sodium 135 Potassium 3.8 Chloride 98 Carbon Dioxide 24.8 Anion Gap 12 BUN 28 H Creatinine 1.20 Est GFR (MDRD) Non-Af 48 L BUN/Creatinine Ratio 23.5 H Glucose 100 H Lactic Acid 1.3 Calcium 7.6 Total Bilirubin 0.72 AST 25 ALT 27 Alkaline Phosphatase 130 H Total Protein 5.1 L Albumin 2.1 L Globulin 3.0 Albumin/Globulin Ratio 0.7 L Urine Color Yellow Urine Clarity Clear Urine pH 6.0 Ur Specific [place] 1.015 Urine Protein Negative Urine Glucose (UA) Normal Urine Ketones Negative Urine Occult Blood Negative Urine Nitrite Negative Urine Bilirubin Negative Urine Urobilinogen Normal Ur Leukocyte Esterase Negative Urine RBC 0 SEEN Urine WBC 0 SEEN Ur Squamous Epith Cells 0-5 SEEN Urine Bacteria 0 SEEN Urine Mucus 0 SEEN Radiography Chest X-Ray - ED: 2 View, Read by ED Physician, Normal, Heart, Lungs, Mediastinum, Bony Structures, No Acute Disease and Chronic Changes Diagnostic Testing: Clinical Impression(s) from Imaging Studies Chest X-Ray 04/14/25 12:35 IMPRESSION: NO ACUTE FINDINGS. Reading Location: [facility] Chest x-ray, 2 views, AP and lateral, interpreted by myself and radiologist. Shows normal cardiac silhouette. No mediastinum. Normal lung abbasi. No pneumonia. No effusions. Right-sided Mediport. Rhythm Strip Rhythm Strip: Sinus Rhythm Rate: 100 Ectopy: None EKG Initial EKG: Attestation: I personally reviewed and interpreted this EKG as follows: Interpretation: Sinus Rhythm and No Acute Injury Pattern Comments: Sinus rhythm rate of 100 no acute signs of [place] or ischemia. Discharge Plan Dx/Rx/DC Orders Clinical Impression: Generalized muscle weakness, Metastatic lung cancer (metastasis from lung to other site), Unable to ambulate, Adult failure to thrive, Acute dehydration, Edema, peripheral Disposition Disposition: Acute Care [facility]
[2025-04-14 13:02] LABS: Hematocrit 39.5 % (37-47); Hemoglobin 13.3 g/dL (12.0-15.0); Immature Granulocytes Count 0.040 X10^3/uL (0.0-0.0); Mean Corp Hgb Conc 33.7 g/dL (32-36); Mean Corpuscular Volume 91.4 fL (81-99); Mean Platelet Vol. 9.2 fl (6.2-12.0); NRBC Flagged by Analyzer 0 % (0-5); Platelet Count 207 K/mm3 (150-450); RBC Distribution Width CV 18.6 % (11.6-14.6); RBC Distribution Width SD 61.9 fl (35.1-43.9); Red Blood Count 4.32 M/mm3 (4.2-5.4); White Blood Count 7.6 K/mm3 (4.4-11.0)
[2025-04-14 13:27] LABS: AST(SGOT) 25 U/L (<=31); Alanine Aminotransfer ALT/SGPT 27 U/L (<=34); Albumin, Serum 2.1 g/dL (3.4-4.8); Alkaline Phosphatase 130 U/L (35-104); Anion Gap 12 (5-15); BUN 28 mg/dL (4-19); BUN/Creat Ratio 23.5 RATIO (10-20); Calcium,Total 7.6 mg/dL (7.6-11.0); Carbon Dioxide 24.8 mmol/L (21.0-32.0); Chloride 98 mmol/L (98-108); Globulin 3.0 g/dL (2.2-4.2); Glucose 100 mg/dL (70-99); Potassium 3.8 mmol/L (3.3-5.1)
--- NOTE | 2025-04-14 13:37 | CM.ED ---
Social Work Date of referral: 04/14/25 Reason for referral: Advanced Care Directives (ACD's) not on file and resources needed. Referred by: Social Work Identification Patient provided consent to social work visit. Hot Header Operator requested patient bring in a copy of ACD's which patient's daughter, Glenny, stated she would bring in. Also present was Glenny's . Patient currently lives in a 3 story duplex which patient owns, however, for the past 3 months (since last hospitalization) has not been able to ambulate up/down any stairs and has been confined to first floor living only. Patient has been sleeping in her recliner chair and has a BSC and has been getting sponge baths. Patient's daughter stated that as of right now, patient has not even been able to get in and out of bed on her own and Glenny and Glenny's brother have been taking patient to her doctor's appointments which have also been a challenge. Patient has been having increased falls as well. Patient admitted she has been thinking about looking into all first floor living and will continue to discuss this with her family. Hot Header Operator provided education and written information on ERS devices with fall detection as well as information for Home Health which patient and patient's family accepted. Hot Header Operator expressed concerns about patient being home alone at this time on her own which patient's family agreed to. Right now, patient's daughter has been doing patient's laundry. Hot Header Operator to discuss with ED doctor. Lisandra Butcher, ANALYTICAL TECHNICIAN, AGED OR DISABLED CARE WORKER
[2025-04-14 14:29] LABS: Mucous, Urine 0 SEEN /hpf (<or=2+); Red Blood Cells-Urine 0 SEEN /hpf (0-5)
[2025-04-14 14:31] LABS: Color, Urine Yellow (Yellow); Glucose, Dipstick Normal (Normal); Ketone-Dipstick Negative (Negative); Leukocyte Esterase-Dipstick Negative /ul (Negative); Nitrite-Dipstick Negative (Negative); Occult Blood-Urine Negative /ul (Negative); Protein-Dipstick Negative (Negative); Specific Gravity, Urine 1.015 (1.002-1.030); Urine Bilirubin Dipstick Negative (Negative)
[2025-04-14 14:36] LABS: Squamous Epithelial Cells - UA 0-5 SEEN /hpf (5-10)
--- NOTE | 2025-04-14 15:37 | CT_ITS ---
PROCEDURE: BRAIN/HEAD WITHOUT CONTRAST 04/14/2025 REASON FOR EXAM: FALLS, HIT HEAD VERY HARD W/ SUBSEQUENT DIZZINESS TECHNIQUE: Procedure Code: CTBR Modality: CT Procedure: BRAIN/HEAD WITHOUT CONTRAST Coronal and Sagittal reconstruction series were provided. One or more dose reduction techniques were used (e.g., Automated exposure control, adjustment of the mA and/or kV according to patient size, use of iterative reconstruction technique. RADIATION DOSE SUMMARY: DLP: 1061.5 MGycm COMPARISON: None available. FINDINGS: No acute hemorrhage. No acute transcortical infarct. Patchy nonspecific periventricular and subcortical white matter hypodensities likely reflect chronic microvascular ischemic changes. No significant mass effect or brain herniation. The ventricular system and sulci/fissures are within normal limits of size and configuration for the patient's stated age. No extra-axial fluid collection. The basal cisterns are patent. The mastoid air cells are clear. The paranasal sinuses are predominantly clear. The calvarium appears intact. CT/Brain/Head without Contrast IMPRESSION: No acute intracranial hemorrhage, transcortical infarct, or significant mass ef fect. Reading Location: [id number]
--- NOTE | 2025-04-14 15:37 | CT_ITS ---
PROCEDURE: SPINE CERVICAL WITHOUT CONTRAS 04/14/2025 REASON FOR EXAM: HIT HEAD AND NECK, POINT TENDERNESS OVER CSPINE TECHNIQUE: Procedure Code: CTSPC Modality: CT Procedure: SPINE CERVICAL WITHOUT CONTRAS Coronal and Sagittal reconstruction series were provided. One or more dose reduction techniques were used (e.g., Automated exposure control, adjustment of the mA and/or kV according to patient size, use of iterative reconstruction technique. RADIATION DOSE SUMMARY: DLP: 1061 mGycm COMPARISON: None available FINDINGS: The visualized posterior fossa contents appear within normal limits for the patient's stated age. Straightening of the cervical spine. The atlantooccipital and atlantoaxial joints appear normally aligned. The atlas and axis are intact. The remaining cervical vertebral bodies are normal in height. The cervical vertebral bodies are normal in alignment.There is no evidence of focal lytic or sclerotic lesion in the cervical spine. There is no prevertebral soft tissue swelling. No high-grade spinal canal stenosis. Degenerative changes of the cervical spine including facet arthrosis, uncovertebral spurring, and posterior disc osteophyte complex formations. Partially visualized right central venous catheter extending to the superior vena cava. Ill-defined right thyroid nodule with coarse calcification/hyperdensity in the setting of prior right thyroid nodule biopsy. 3.5 mm left upper lobe nodule. CT/Spine Cervical without Contras IMPRESSION: No acute fracture or dislocation in the cervical spine. Reading Location: [id number]
--- NOTE | 2025-04-14 15:37 | PCM.HP.STD ---
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 In the ED temp 97.8, heart rate initially 107 then decreased to 100, blood pressure 96/76. Pulse ox 97% on room air. CBC with white count 7.6, hemoglobin 13.3. BUN 28 with a creatinine of 1.2, up from 0.85 5 days ago. AST, ALT, total bili within normal limits with a slightly elevated alk phos at 130. Lactic acid normal at 1.3, UA unremarkable. Chest x-ray no acute findings. Patient is generally weak and has had frequent falls and is not safe for discharge home so hospitalist contacted for admission and placement. Patient evaluated at bedside, no family present for additional information but patient seems to be answering questions appropriately. She reports her lower extremities have been swelling increasingly for at least the past month, 1-1/2 to 2 weeks ago she noticed she has been feeling more tired and weak and had her first fall about 1.5 weeks ago and has had several falls since then. About a week ago she fell and hit her head so hard on the trash can she reports it became dented, she had dizziness after with no loss of consciousness and ultimately was able to get up, has had pain in the center of her cervical spine since that fall that radiates to right shoulder, denies being evaluated after any of these falls. Notes that she has had a little bit of blurry vision over the past couple of days and had a little bit of nausea over the past couple weeks but none at this time, does note some increased shortness of breath recently with no cough, no chest pain. Denies any diarrhea, no fevers, denies any headache, no changes in urination. Patient denies any numbness or tingling, feels weak but this is symmetric with no focal weakness [facility] Medical History Abdominal pain Hypokalemia Partial small bowel obstruction Delayed surgical wound healing Constipation Pericardial effusion Hilar mass Right atrial mass Genital herpes Osteoporosis Migraine Hyperlipidemia Hiatal hernia GERD (gastroesophageal reflux disease) Depression Chronic kidney disease (CKD) Bilateral leg edema Thyroid enlargement Hypokalemia Wears dentures Wears glasses Post-menopausal Cancer History of steroid therapy Arthritis Back pain History of hiatal hernia Gastric reflux Former smoker On home oxygen therapy Asthma Shortness of breath on exertion Hoarseness Chronic cough History of edema Cardiology follow-up encounter History of echocardiogram Hypertension Coughing up blood Chest pain Anemia Encounter for antineoplastic immunotherapy Encounter for chemotherapy management Small cell lung cancer Encounter for education 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 COPD (chronic obstructive pulmonary disease) Home Medications ?Medication ?Instructions ?Recorded ?Last Taken ?Type albuterol sulfate 90 mcg/actuation 1 - 2 puff inhalation Q4H PRN PRN 08/24/19 Unknown History aerosol inhaler Sob &/Or Wheezing loratadine 10 mg tablet 10 mg PO DAILY allergy 08/24/19 04/13/25 History buspirone 10 mg tablet 10 mg PO TID PRN anxiety 11/13/24 04/13/25 History pantoprazole 40 mg tablet,delayed 40 mg PO QDAY gerd 11/13/24 04/13/25 History release docusate sodium 100 mg capsule 100 mg PO BID constipation 11/17/24 04/13/25 History (Dulcolax Stool Softener (docusate)) trazodone 100 mg tablet 150 mg PO QHS sleep 11/17/24 04/13/25 History cyanocobalamin (vitamin B-12) 50 50 mcg PO DAILY 02/11/25 04/13/25 History mcg tablet durvalumab 50 mg/mL intravenous 1,500 mg IV Q14D 02/11/25 Unknown History solution zinc citrate, zinc oxide 50 mg 50 mg PO DAILY supplement 02/11/25 04/13/25 History tablet prochlorperazine maleate 10 mg 10 mg PO Q6-8H PRN nausea and 03/06/25 Unknown Rx tablet (Compazine) vomiting #30 tabs budesonide-formoterol HFA 80 2 puff inhalation BID 04/10/25 04/13/25 History mcg-4.5 mcg/actuation aerosol inhaler (Symbicort) famotidine 10 mg tablet 10 mg PO BID 04/10/25 04/13/25 History furosemide 40 mg tablet 40 mg PO DAILY swelling #90 tabs 04/10/25 04/13/25 Rx metoprolol tartrate 25 mg tablet 25 mg PO BID #60 tabs 04/10/25 04/13/25 Rx potassium chloride 20 mEq 20 meq PO BID #30 tabs 04/10/25 04/13/25 Rx tablet,extended release(part/cryst) valacyclovir 500 mg tablet 500 mg PO BID 04/10/25 04/13/25 History oxycodone-acetaminophen 10 mg-325 1 tab PO 4X/DAY PRN PRN pain 04/14/25 04/14/25 History mg tablet spironolactone 50 mg tablet 50 mg PO DAILY 04/14/25 04/13/25 History Allergy/AdvReac Type Severity Reaction Status Date / Time calcipotriene Allergy Severe Rash Verified 04/10/25 09:06 Opioids - Morphine Analogues Allergy Severe Hives Verified 04/10/25 09:06 alendronate sodium (From Allergy Pain in Verified 04/10/25 09:06 Fosamax) joints cefaclor (From Ceclor) Allergy Hives Verified 04/10/25 09:06 ezetimibe Allergy Other Verified 04/10/25 09:06 Penicillins Allergy Hives Verified 04/10/25 09:06 tramadol HCl (From [facility]) Allergy Hives Verified 04/10/25 09:06 hydrochlorothiazide AdvReac Unknown reaction Verified 04/10/25 09:06 erythromycin base AdvReac Nausea Verified 04/10/25 09:06 Family History Mother Leukemia Osteoporosis Thyroid disorder Grandfather Brain cancer Father Respiratory disease Brother Heart disease Surgical History History of tubal ligation History of bunionectomy History of carpal tunnel surgery of right wrist History of eyelid surgery History of shoulder surgery History of carpal tunnel release History of bilateral knee replacement H/O breast biopsy History of appendectomy Previous back surgery Social History Smoking Status: Former smoker Tobacco: How many years used: 30 alcohol intake: never ROS ROS Narrative General: Denies fever/chills HENT: Denies headache, denies stuffy nose, denies sore throat EYES: Feels both eyes have been a little bit blurry Resp: Denies cough, has had some increased shortness of breath specifically on exertion Cardiac: Denies chest pain GI: Denies abdominal pain, denies changes in bowel, denies nausea/vomiting currently, had a little bit of nausea over the past couple of weeks : Denies changes in urination Extremity: Increasing lower extremity swelling MSK: Generalized weakness Neuro: Denies any numbness/tingling Heme: Denies any bleeding or bruising Skin: Does have some weeping from legs Psychiatric: No complaints voiced Vital Signs Vital Signs Vital Signs: 04/14/25 12:16 04/14/25 12:22 04/14/25 14:16 Temperature 97.8 F Temperature Source Oral Pulse Rate 107 H 100 Respiratory Rate 17 14 Respiratory Pattern Normal Blood Pressure 96/76 91/71 Blood Pressure Mean 82 77 Pulse Ox 97 100 Oxygen Delivery Method Room Air Room Air Physical Exam Narrative General: Alert, no acute distress, overall seems to answer questions appropriately but a little bit forgetful at times HEENT: normocephalic Eyes: Anicteric, normal conjunctiva, extraocular movements grossly intact Neck: Some point tenderness over mid cervical spine Respiratory: Diffuse wheezes, normal respiratory effort Cardiovascular: Regular rate and rhythm GI: Soft, nontender, nondistended Extremities: 3+ bilateral lower extremity edema Musculoskeletal: Moving all extremities Neuro: No overt focal neurological deficits Skin: Both legs somewhat red with fluid-filled blisters that are weeping Psych: Cooperative Results Lab / Micro Data 04/14/25 12:55 04/14/25 12:55 Labs: Laboratory Results - last 24 hr 04/14/25 12:55: WBC 7.6, RBC 4.32, Hgb 13.3, Hct 39.5, MCV 91.4, MCH 30.8, MCHC 33.7, RDW Std Deviation 61.9 H, RDW Coeff of Juan David 18.6 H, Plt Count 207, MPV 9.2, Immature Gran % (Auto) 0.500, Neut % (Auto) 71.4 H, Lymph % (Auto) 17.3 L, [place] % (Auto) 10.4 H, Eos % (Auto) 0.1, Baso % (Auto) 0.3, Absolute Neuts (auto) 5.5, Absolute Lymphs (auto) 1.32, Nucleated RBC % 0, Sodium 135, Potassium 3.8, Chloride 98, Carbon Dioxide 24.8, Anion Gap 12, BUN 28 H, Creatinine 1.20, Est GFR (MDRD) Non-Af 48 L, BUN/Creatinine Ratio 23.5 H, Glucose 100 H, Lactic Acid 1.3, Calcium 7.6, Total Bilirubin 0.72, AST 25, ALT 27, Alkaline Phosphatase 130 H, Total Protein 5.1 L, Albumin 2.1 L, Globulin 3.0, Albumin/Globulin Ratio 0.7 L 04/14/25 14:20: Urine Color Yellow, Urine Clarity Clear, Urine pH 6.0, Ur Specific [place] 1.015, Urine Protein Negative, Urine Glucose (UA) Normal, Urine Ketones Negative, Urine Occult Blood Negative, Urine Nitrite Negative, Urine Bilirubin Negative, Urine Urobilinogen Normal, Ur Leukocyte Esterase Negative, Urine RBC 0 SEEN, Urine WBC 0 SEEN, Ur Squamous Epith Cells 0-5 SEEN, Urine Bacteria 0 SEEN, Urine Mucus 0 SEEN Rhythm Strip Rhythm Strip: Sinus Rhythm Rate: 100 Ectopy: None Imaging Radiology Impression Chest X-Ray 04/14/25 12:35 IMPRESSION: NO ACUTE FINDINGS. Reading Location: [facility] Assessment & Plan Assessment/Plan (1) Adult failure to thrive: (2) Bilateral leg edema: (3) Generalized muscle weakness: PLAN: Plan # Generalized weakness multiple falls - UA within normal limits -White count within normal limits with hemoglobin stable at 13.3 -Does have ALDAIR and mucous membranes appear volume depleted though has 3+ lower extremity swelling -PT/OT -Case management -Recent normal TSH -Will check B12 -CT head and CT cervical spine obtained due to her recent falls: No acute process -Generalized weakness could impart be due to low blood pressure as well although she denies any lightheadedness or dizziness, suspect soft BP is due to addition of beta-mayuri as well as increased diuretics leading to some intravascular depletion -Appears beta-mayuri was added on for sinus tachycardia, will hold and will cut back diuretics as below -LA WNL, no obvious infectious source # Increased lower extremity swelling -Reportedly history of lower extremity edema that has been increasing over the last month (though cardiology note from 5 days ago says this has been present for 3 months and is not worsening) -Chest x-ray no acute process - proBNP 540 which is technically below cutoff for heart failure being likely however previous 2 values were 160 - Had echocardiogram 02/19/25 with trivial pericardial effusion and EF of 55% with lipomatous hypertrophy of atrial septum and PASP of 42 -Due to her lower extremity swelling with increase in BNP will order limited echo to assess EF -Recent TSH within normal limits -Daily weights, I's and O's -Elevate lower extremities -Mundo wrap's as tolerated # ALDAIR - BUN of 28 with a creatinine of 1.20, 5 days ago BUN 22 and a creatinine of 0.85 -UA no acute abnormality noted -Will obtain kidney and bladder ultrasound and urine studies -Will hold spironolactone and slightly decrease Lasix back to 20 mg -Given patient appears peripherally overloaded and increase in BNP we will hold off on significant IV fluids in favor of decreasing diuretics but pending results and limited echo and patient progress can reconsider #Hx COPD -Continue home inhalers -Incentive spirometer # Small cell carcinoma of the lung with metastasis to liver -Most recent oncology note reviewed 03/20/2025 -Patient completed chemotherapy December 2024, now on durvalumab maintenance -Continue to follow with oncology on an outpatient basis #DVT ppx: Lovenox subcu Ami Magdaleno MD Time spent in the patient's overall evaluation, decision-making process, review of diagnostic data, adjustment of management, discussion with other providers, nursing and ancillary staff involved in patient's care documentation, 77 Minutes Charges/Coding Visit Charges Inpatient E&M: 38908 Init Hosp L3
[2025-04-14 16:11] LABS: Pro- Brain NATRIURETIC PEPTIDE 540 pg/mL (<=900)
--- NOTE | 2025-04-14 17:40 | ECHOL_ITS ---
Reason For Study Reason For Study: DYSPNEA Procedure This was a limited 2D transthoracic echocardiogram. Exam performed portable in patient room. Left Ventricle Normal LV size. Left ventricular systolic function is normal. The estimated ejection fraction is 65 %. Stage 1 diastolic dysfunction. No regional wall motion abnormalities noted. Right Ventricle Normal RV size. Normal systolic function. Atria Normal left atrium. Normal right atrium. Mitral Valve Normal mitral valve. Tricuspid Valve Normal tricuspid valve. Mild (1+) tricuspid valve insufficiency. Pulmonary artery systolic pressure is 30 mmHg. Aortic Valve Trisinus/trileaflet aortic valve. Pulmonic Valve Normal pulmonic valve. Great Vessels Normal aortic root. The pulmonary artery is normal size. Inferior vena cava collapse with respiration. Pericardium/Pleural No pericardial effusion. MMode/2D Measurements & Calculations LVIDd: 3.3 cm IVSd: 0.88 cm LAV(MOD- bp): 28.1 ml LVIDs: 2.1 cm LVPWd: 0.88 cm LAV(MOD- bp) Indexed: 15.9 ml/m2 RVDd: 3.1 cm FS: 35.9 % LAV(MOD- sp2): 24.4 ml LAV(MOD- sp4): 30.2 ml SV(MOD- sp4): 28.0 ml LVAd ap4: 18.2 cm2 LVAd ap2: 16.7 cm2 LVLd ap4: 6.5 cm LVLd ap2: 6.7 cm SI(MOD- sp4): 15.9 ml/m2 EDV(MOD-sp4): 41.8 ml EDV(MOD-sp2): 33.7 ml EDV(sp4-el): 43.2 ml EDV(sp2-el): 35.2 ml LVAs ap4: 9.4 cm2 LVAs ap2: 8.6 cm2 LVLs ap4: 5.4 cm LVLs ap2: 5.6 cm ESV(MOD-sp4): 13.8 ml ESV(MOD-sp2): 11.1 ml ESV(sp4-el): 14.1 ml ESV(sp2-el): 11.2 ml EF(MOD-sp4): 66.9 % EF(MOD-sp2): 67.0 % EF(sp4-el): 67.4 % SV(MOD-sp2): 22.6 ml SV(sp4-el): 29.1 ml Ao sinus diam: 3.2 cm SI(MOD-sp2): 12.8 ml/m2 LA dimension(2D): 2.5 cm LA A4 area: 13.1 cm2 RA A4 area: 9.2 cm2 TAPSE: 1.6 cm Time Measurements MV dec time: 0.20 sec Doppler Measurements & Calculations MV E max ash: 84.9 cm/sec Lat Peak E' Ash: 7.6 cm/sec Med Peak E' Ash: 7.7 cm/sec MV A max ash: 126.4 cm/sec E/E' lat: 11.2 E/E' med: 11.0 MV E/A: 0.67 MV dec slope: 421.4 cm/sec2 TR max ash: 254.8 cm/sec TR max P.0 mmHg ECHO/Echo, Limited Study Interpretation Summary Normal LV size. Left ventricular systolic function is normal. The estimated ejection fraction is 65 %. Stage 1 diastolic dysfunction. Pulmonary artery systolic pressure is 30 mmHg. Ordering Physician: Ami Magdaleno Performed By: Ana Singh RDCS
[2025-04-14] MEDS: Senna/Docusate Sodium 1 Tablet 2 TABLET PO (21:12)
[2025-04-15] VITALS (12 sets, daily range): BP systolic 85–106; BP diastolic 53–71; PULSE 82–105; RESP 16–18; TEMP 36.6–37; O2SAT 16–99; BMI 29.9
[2025-04-15] MEDS: Albumin Human 25% (100 mL) 25 GM/100 ML BAG IV (04:55)
[2025-04-15] MEDS: 0.9% Saline Lock 10 ML Syringe IV (04:59)
[2025-04-15 06:14] LABS: Hematocrit 28.5 % (37-47); Hemoglobin 9.8 g/dL (12.0-15.0); Immature Granulocytes Count 0.040 X10^3/uL (0.0-0.0); Mean Corp Hgb Conc 34.4 g/dL (32-36); Mean Corpuscular Volume 89.1 fL (81-99); Mean Platelet Vol. 8.9 fl (6.2-12.0); NRBC Flagged by Analyzer 0 % (0-5); Platelet Count 150 K/mm3 (150-450); RBC Distribution Width CV 18.9 % (11.6-14.6); RBC Distribution Width SD 62.0 fl (35.1-43.9); Red Blood Count 3.20 M/mm3 (4.2-5.4); White Blood Count 6.4 K/mm3 (4.4-11.0)
[2025-04-15 06:52] LABS: Anion Gap 8 (5-15); BUN 24 mg/dL (4-19); BUN/Creat Ratio 24.5 RATIO (10-20); Calcium,Total 7.1 mg/dL (7.6-11.0); Carbon Dioxide 25.8 mmol/L (21.0-32.0); Chloride 96 mmol/L (98-108); Estimated Creatinine Clearance 50.62 ml/min (50-250); Glucose 90 mg/dL (70-99); Potassium 3.1 mmol/L (3.3-5.1)
[2025-04-15] MEDS: Albuterol 2.5 MG/3 ML VIAL.NEB. INHALATION ×2 (06:55→17:03)
[2025-04-15] MEDS: Budesonide Respules 0.5 MG/2 ML AMPUL.NEB. INHALATION (06:55)
[2025-04-15 07:20] LABS: Vitamin B12 2104 pg/mL (180-914)
[2025-04-15] MEDS: Potassium Chloride Oral Tablet 20 MEQ PO (09:04)
[2025-04-15] MEDS: Zinc Sulfate 50 mg zinc (220 mg) ORAL capsule PO (12:12)
--- NOTE | 2025-04-15 15:20 | PCM.PN.HOSP ---
Subjective Subjective Complaining of some pain overnight, will make adjustments to her pain medication regimen Objective Data Objective Data Vital Signs: Vital Signs Temp Pulse Resp BP Pulse Ox O2 Del Method 98.0 F 82 18 90/61 95 Room Air 04/15/25 09:20 04/15/25 09:20 04/15/25 09:20 04/15/25 12:16 04/15/25 10:00 04/15/25 10:00 Oxygen Delivery Method Room Air Weight: 168 lb 13.985 oz Body Mass Index (BMI) 29.9 Intake & Output: Intake and Output for Last 24 Hours 04/14/25 04/15/25 04/16/25 03:59 03:59 03:59 Intake Total 150 / 150 382 / 382 Output Total 550 / 550 Balance 150 / 150 -168 / -168 Lab / Micro Data 04/15/25 05:53 04/15/25 05:53 Labs: Laboratory Results - last 24 hr 04/14/25 12:55: NT pro BNP II 540 04/15/25 05:53: WBC 6.4, RBC 3.20 L, Hgb 9.8 L, Hct 28.5 L, MCV 89.1, MCH 30.6, MCHC 34.4, RDW Std Deviation 62.0 H, RDW Coeff of Juan David 18.9 H, Plt Count 150, MPV 8.9, Immature Gran % (Auto) 0.600, Neut % (Auto) 59.6, Lymph % (Auto) 27.4, [place] % (Auto) 11.6 H, Eos % (Auto) 0.5, Baso % (Auto) 0.3, Absolute Neuts (auto) 3.8, Absolute Lymphs (auto) 1.75, Nucleated RBC % 0, Sodium 130 L, Potassium 3.1 L, Chloride 96 L, Carbon Dioxide 25.8, Anion Gap 8, BUN 24 H, Creatinine 0.97, Estim Creat Clear Calc 50.62, Est GFR (MDRD) Non-Af 62, BUN/Creatinine Ratio 24.5 H, Glucose 90, Calcium 7.1 L, Vitamin B12 2104 H Radiography Diagnostic Testing: Radiology Impression Brain CT 04/14/25 15:37 IMPRESSION: No acute intracranial hemorrhage, transcortical infarct, or significant mass effect. Reading Location: [facility] Cervical Spine CT 04/14/25 15:37 IMPRESSION: No acute fracture or dislocation in the cervical spine. Reading Location: [facility]ED [facility] Rhythm Strip Rhythm Strip: Sinus Rhythm Rate: 100 Ectopy: None Physical Exam Narrative General: Alert, Oriented x3, Cooperative, No apparent distress HEENT: Atraumatic, PERRLA, EOMI, Normocephalic Oral: Moist Mucosa Neck: Supple, No JVD Lungs: Diminished, Normal air movement, No rhonchi, scattered wheeze, No rales Cardiovascular: Regular rate, Regular Rhythm, Normal S1, Normal S2, No murmurs Abdomen: Soft, Non Tender, Non-Distended, No Hepato-splenomegaly Extremities: Edema, Capillary Refill Less than 3 Seconds Skin: Bilateral lower extremity redness with serous filled blisters Musculoskeletal: No Tenderness to Palpation of Joints or Extremities Neurological: No focal neurological deficits, moves all extremities Psych/Mental Status: Flat Assessment & Plan Assessment/Plan (1) Adult failure to thrive: (2) Bilateral leg edema: (3) Generalized muscle weakness: PLAN: Plan 1. Generalized weakness with inability complete ADLs multiple falls with increased lower extremity edema ? Renal function is close to baseline, her baseline creatinine is around 0.9 and her creatinine on admission was 1.2 and is down to 0.97 today, no ALDAIR on admission ? PT/OT ? 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 UA is unremarkable ? Her proBNP was 540 with an EF of 55% and a PASP of 42 mmHg on 02/19/2025 ? Limited echo is pending to evaluate EF ? Recent TSH was unremarkable 2. 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 Continue with her home inhalers ? Will manage her pain ? She is on durvalumab as an outpatient she completed chemotherapy 3. Essential HTN/edema ? Continue with her home metoprolol ? Continue with her home diuretics of her Lasix was decreased by 50% ? Will monitor and make adjustments as necessary 4. Anxiety/depression ? Stable ? Continue with her home medications 5. GERD ? Stable ? Continue with PPI DVT: Lovenox Charges/Coding Visit Charges Inpatient E&M: 01574 Subs Hosp L2
[2025-04-16] VITALS (9 sets, daily range): BP systolic 85–113; BP diastolic 56–82; PULSE 102–130; RESP 14–18; TEMP 36.4–36.9; O2SAT 96–100; BMI 28.5
[2025-04-16 00:41] LABS: Creatinine, Urine (random) 32.10 mg/dL (28.00-217.00); Urea Nitrogen, Urine 342 mg/dL (NO RANGE EST.)
[2025-04-16 00:54] LABS: Osmolality, Urine 262 mOsm/KG
[2025-04-16 05:34] LABS: Hematocrit 28.1 % (37-47); Hemoglobin 9.8 g/dL (12.0-15.0); Immature Granulocytes Count 0.020 X10^3/uL (0.0-0.0); Mean Corp Hgb Conc 34.9 g/dL (32-36); Mean Corpuscular Volume 90.1 fL (81-99); Mean Platelet Vol. 8.9 fl (6.2-12.0); NRBC Flagged by Analyzer 0 % (0-5); Platelet Count 132 K/mm3 (150-450); RBC Distribution Width CV 18.9 % (11.6-14.6); RBC Distribution Width SD 61.9 fl (35.1-43.9); Red Blood Count 3.12 M/mm3 (4.2-5.4); White Blood Count 5.2 K/mm3 (4.4-11.0)
--- NOTE | 2025-04-16 06:00 | US_ITS ---
PROCEDURE: KIDNEY AND BLADDER 04/16/2025 REASON FOR EXAM: ALDAIR TECHNIQUE: Procedure Code: USKI Modality: US Procedure: KIDNEY AND BLADDER COMPARISON: February 11, 2025 FINDINGS: Kidneys: The right kidney measures 8.9 x 5.0 x 4.0 cm, while the left measures 9.0 x 4.1 x 4.4 cm. Echotexture is normal. No calculus or solid mass seen. A hypoechoic structure simple cyst is present on the right at the mid to upper pole measuring 1.1 x 1.1 x 0.6 cm. No calculus is seen. Bladder: Normal appearance. No bladder wall thickening. Prevoid bladder volume 72 cc. Postvoid bladder volume 0 cc. Bilateral ureteral jets are present. US/Kidney and Bladder IMPRESSION: 1. Simple cyst right kidney. [place] 1. No follow-up required. 2. No acute abnormality. No obstruction. Reading Location: [id number]
[2025-04-16 06:03] LABS: Anion Gap 8 (5-15); BUN 17 mg/dL (4-19); BUN/Creat Ratio 20.8 RATIO (10-20); Calcium,Total 7.2 mg/dL (7.6-11.0); Carbon Dioxide 28.2 mmol/L (21.0-32.0); Chloride 99 mmol/L (98-108); Estimated Creatinine Clearance 57.83 ml/min (50-250); Glucose 95 mg/dL (70-99); Magnesium 1.6 mg/dL (1.5-2.2); Potassium 3.3 mmol/L (3.3-5.1)
[2025-04-16] MEDS: Potassium Chloride Oral Tablet 20 MEQ PO (08:39)
[2025-04-16] MEDS: Zinc Sulfate 50 mg zinc (220 mg) ORAL capsule PO (08:45)
--- NOTE | 2025-04-16 09:25 | PCM.PN.HOSP ---
Subjective Subjective Doing well, no issues overnight. Objective Data Objective Data Vital Signs: Vital Signs Temp Pulse Resp BP Pulse Ox O2 Del Method 98.4 F 110 H 16 98/69 100 Room Air 04/16/25 08:31 04/16/25 08:41 04/16/25 08:31 04/16/25 08:41 04/16/25 08:31 04/16/25 08:38 Oxygen Delivery Method Room Air Weight: 161 lb 2.526 oz Body Mass Index (BMI) 28.5 Intake & Output: Intake and Output for Last 24 Hours 04/15/25 04/16/25 04/17/25 03:59 03:59 03:59 Intake Total 150 / 150 532 / 532 Output Total 1350 / 1350 300 / 300 Balance 150 / 150 -818 / -818 -300 / -300 Lab / Micro Data 04/16/25 05:24 04/16/25 05:24 Labs: Laboratory Results - last 24 hr 04/15/25 23:30: Urine Osmolality 262, Ur Random Sodium 29, Urine Creatinine 32.10, Urine Potassium 22.9, Urine Chloride 27, Urine Urea Nitrogen 342 04/16/25 05:24: WBC 5.2, RBC 3.12 L, Hgb 9.8 L, Hct 28.1 L, MCV 90.1, MCH 31.4, MCHC 34.9, RDW Std Deviation 61.9 H, RDW Coeff of Juan David 18.9 H, Plt Count 132 L, MPV 8.9, Immature Gran % (Auto) 0.400, Neut % (Auto) 64.5, Lymph % (Auto) 21.0, [place] % (Auto) 13.1 H, Eos % (Auto) 0.6, Baso % (Auto) 0.4, Absolute Neuts (auto) 3.3, Absolute Lymphs (auto) 1.09, Nucleated RBC % 0, Sodium 135, Potassium 3.3, Chloride 99, Carbon Dioxide 28.2, Anion Gap 8, BUN 17, Creatinine 0.83, Estim Creat Clear Calc 57.83, Est GFR (MDRD) Non-Af 74, BUN/Creatinine Ratio 20.8 H, Glucose 95, Calcium 7.2 L, Phosphorus 2.4 L, Magnesium 1.6 Rhythm Strip Rhythm Strip: Sinus Rhythm Rate: 100 Ectopy: None Physical Exam Narrative General: Alert, Oriented x3, Cooperative, No apparent distress HEENT: Atraumatic, PERRLA, EOMI, Normocephalic Oral: Moist Mucosa Neck: Supple, No JVD Lungs: Diminished, Normal air movement, No rhonchi, scattered wheeze, No rales Cardiovascular: Tachycardic, Regular Rhythm, Normal S1, Normal S2, No murmurs Abdomen: Soft, Non Tender, Non-Distended, No Hepato-splenomegaly Extremities: Edema, Capillary Refill Less than 3 Seconds Skin: Bilateral lower extremity redness with serous filled blisters Musculoskeletal: No Tenderness to Palpation of Joints or Extremities Neurological: No focal neurological deficits, moves all extremities Psych/Mental Status: Normal affect, appropriate Assessment & Plan Assessment/Plan (1) Adult failure to thrive: (2) Bilateral leg edema: (3) Generalized muscle weakness: PLAN: Plan 1. Generalized weakness with inability complete ADLs multiple falls with increased lower extremity edema ? Renal function is close to baseline, her baseline creatinine is around 0.9 and her creatinine on admission was 1.2 and is back to baseline, no ALDAIR on admission ? PT/OT ? 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 UA is unremarkable ? Her proBNP was 540 with an EF of 55% and a PASP of 42 mmHg on 02/19/2025 ? Limited echo with EF of 65% stage I diastolic dysfunction, PASP of 30 mmHg ? Recent TSH was unremarkable 2. 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 Continue with her home inhalers ? Will manage her pain ? She is on durvalumab as an outpatient she completed chemotherapy 3. Essential HTN/edema ? Continue with her home metoprolol ? Continue with her home diuretics of her Lasix was decreased by 50% ? Will monitor and make adjustments as necessary 4. Anxiety/depression ? Stable ? Continue with her home medications 5. GERD ? Stable ? Continue with PPI DVT: Lovenox Charges/Coding Visit Charges Inpatient E&M: 63602 Subs Hosp L2
--- NOTE | 2025-04-16 09:29 | CASEMGMT ---
Social Work SW called the daughter. The daughter requested that her and the son speak with THEA before meeting with the patient. The daughter is concerned about her mom going home with HH. She reported her and brother have POA. She reported her mom falls at home. Her and her brother 3 to 4 times a day everyday to help their mother. KAYLA Blanco
--- NOTE | 2025-04-16 10:31 | CASEMGMT ---
Discharge Planning A list of?SNF providers including quality and resource use data and consistent with the patient's preferred geographic region, medical needs, and insurance network was created in [facility].? This list was provided to the SW. Lisa Young Discharge Planning Asst.
--- NOTE | 2025-04-16 11:03 | CASEMGMT ---
Social Work SW spoke with the patient and provided the patient a list of SNF?providers including quality and resource use data and consistent with the patient's preferred geographic region, medical needs, and insurance network was created in [facility].?Patient plans on discussing the SNF options with her children. SW also completed a SDOH with the patient. Plan: SW will follow this afternoon for SNF choices. KAYLA Blanco
--- NOTE | 2025-04-16 11:07 | CASEMGMT ---
Social Work SW called the daughter and informed her that the list of SNF options was provided to the patient. Daughter reported they are coming to the hospital soon and will review the options. KAYLA Blanco
--- NOTE | 2025-04-16 11:38 | NURSING ---
RECEIVED COPY OF DNR COMFORT CARE PAPER. COPY SENT TO [facility].
[2025-04-16] MEDS: Magnesium Sulfate 2 GM in Dextrose 5%-Water (100mL Bag) 100 ML IV (12:16)
[2025-04-16] MEDS: Potassium Phosphate 15 MM in 0.9% Normal Saline (250mL Bag) 250 ML 125 MM IV (12:34)
[2025-04-16] MEDS: Albuterol 2.5 MG/3 ML VIAL.NEB. INHALATION ×2 (13:20→20:10)
--- NOTE | 2025-04-16 13:39 | CASEMGMT ---
Addendum entered by Lisa Young 04/17/25 08:01: [facility] has accepted and [facility] has declined. Lisa Young DC Planning Asst. Original Note: Discharge Planning Referral sent to [facility] and [facility]. had requested referral to [facility] but they have no bed availability. Lisa Young DC Planning Asst.
--- NOTE | 2025-04-16 13:49 | CASEMGMT ---
Social work The patients choices for SNF were- [facility], [facility] and [facility]. THEA QUARLES assistant chief engineer sent the referrals. KAYLA Blanco
--- NOTE | 2025-04-16 18:52 | NURSING ---
Spoke with the Son, he was voicing concerns about his mother going home alone. States she has been calling family asking where she is and is not acting herself at all. Pt has been A+OX3 for this RN today, but has noted small amounts of confusion as the night has gone on.
[2025-04-16] MEDS: 0.9% Saline Lock 10 ML Syringe IV (19:59)
[2025-04-16] MEDS: Budesonide Respules 0.5 MG/2 ML AMPUL.NEB. INHALATION (20:11)
[2025-04-16] MEDS: Senna/Docusate Sodium 1 Tablet 2 TABLET PO (21:34)
[2025-04-17] VITALS (7 sets, daily range): BP systolic 92–121; BP diastolic 63–86; PULSE 93–109; RESP 14–18; TEMP 36.1–36.8; O2SAT 96–100; BMI 28.5
[2025-04-17 05:01] LABS: Hematocrit 31.2 % (37-47); Hemoglobin 10.5 g/dL (12.0-15.0); Immature Granulocytes Count 0.030 X10^3/uL (0.0-0.0); Mean Corp Hgb Conc 33.7 g/dL (32-36); Mean Corpuscular Volume 93.7 fL (81-99); Mean Platelet Vol. 9.2 fl (6.2-12.0); NRBC Flagged by Analyzer 0 % (0-5); Platelet Count 185 K/mm3 (150-450); RBC Distribution Width CV 19.1 % (11.6-14.6); RBC Distribution Width SD 64.8 fl (35.1-43.9); Red Blood Count 3.33 M/mm3 (4.2-5.4); White Blood Count 7.5 K/mm3 (4.4-11.0)
[2025-04-17 05:20] LABS: Anion Gap 7 (5-15); BUN 14 mg/dL (4-19); BUN/Creat Ratio 17.4 RATIO (10-20); Calcium,Total 7.3 mg/dL (7.6-11.0); Carbon Dioxide 27.8 mmol/L (21.0-32.0); Chloride 100 mmol/L (98-108); Estimated Creatinine Clearance 60.03 ml/min (50-250); Glucose 91 mg/dL (70-99); Potassium 4.0 mmol/L (3.3-5.1)
[2025-04-17] MEDS: Budesonide Respules 0.5 MG/2 ML AMPUL.NEB. INHALATION (06:39)
[2025-04-17] MEDS: Albuterol 2.5 MG/3 ML VIAL.NEB. INHALATION (06:40)
[2025-04-17] MEDS: Potassium Chloride Oral Tablet 20 MEQ PO (07:46)
--- NOTE | 2025-04-17 08:51 | PCM.PN.HOSP ---
Subjective Subjective Doing well, sitting up in the chair today. She was little bit disoriented this morning Objective Data Objective Data Vital Signs: Vital Signs Temp Pulse Resp BP Pulse Ox O2 Del Method 98.0 F 101 H 18 117/76 98 Room Air 04/17/25 05:50 04/17/25 06:40 04/17/25 06:40 04/17/25 05:50 04/17/25 05:50 04/17/25 05:50 Oxygen Delivery Method Room Air Weight: 161 lb 6.054 oz Body Mass Index (BMI) 28.5 Intake & Output: Intake and Output for Last 24 Hours 04/16/25 04/17/25 04/18/25 03:59 03:59 03:59 Intake Total 532 / 532 859 / 859 800 / 800 Output Total 1350 / 1350 1650 / 1650 Balance -818 / -818 -791 / -791 800 / 800 Lab / Micro Data 04/17/25 04:25 04/17/25 04:25 Labs: Laboratory Results - last 24 hr 04/17/25 04:25: WBC 7.5, RBC 3.33 L, Hgb 10.5 L, Hct 31.2 L, MCV 93.7, MCH 31.5, MCHC 33.7, RDW Std Deviation 64.8 H, RDW Coeff of Juan David 19.1 H, Plt Count 185, MPV 9.2, Immature Gran % (Auto) 0.400, Neut % (Auto) 80.7 H, Lymph % (Auto) 11.5 L, [place] % (Auto) 7.0, Eos % (Auto) 0.1, Baso % (Auto) 0.3, Absolute Neuts (auto) 6.1, Absolute Lymphs (auto) 0.87, Nucleated RBC % 0, Sodium 135, Potassium 4.0, Chloride 100, Carbon Dioxide 27.8, Anion Gap 7, BUN 14, Creatinine 0.80, Estim Creat Clear Calc 60.03, Est GFR (MDRD) Non-Af 78, BUN/Creatinine Ratio 17.4, Glucose 91, Calcium 7.3 L Radiography Diagnostic Testing: Radiology Impression Echocardiogram 04/14/25 17:40 Interpretation Summary Normal LV size. Left ventricular systolic function is normal. The estimated ejection fraction is 65 %. Stage 1 diastolic dysfunction. Pulmonary artery systolic pressure is 30 mmHg. Ordering Physician: Ami Magdaleno Performed By: Ana Singh RDCS Renal Ultrasound 04/16/25 06:00 IMPRESSION: 1. Simple cyst right kidney. Bosniak 1. No follow-up required. 2. No acute abnormality. No obstruction. Reading Location: [id number] Rhythm Strip Rhythm Strip: Sinus Rhythm Rate: 100 Ectopy: None Physical Exam Narrative General: Alert, Oriented x2, Cooperative, No apparent distress HEENT: Atraumatic, PERRLA, EOMI, Normocephalic Oral: Moist Mucosa Neck: Supple, No JVD Lungs: Diminished, Normal air movement, No rhonchi, scattered wheeze, No rales Cardiovascular: Tachycardic, Regular Rhythm, Normal S1, Normal S2, No murmurs Abdomen: Soft, Non Tender, Non-Distended, No Hepato-splenomegaly Extremities: Edema, Capillary Refill Less than 3 Seconds Skin: Bilateral lower extremity redness with serous filled blisters Musculoskeletal: No Tenderness to Palpation of Joints or Extremities Neurological: No focal neurological deficits, moves all extremities Psych/Mental Status: Normal affect, appropriate Assessment & Plan Assessment/Plan (1) Adult failure to thrive: (2) Bilateral leg edema: (3) Generalized muscle weakness: PLAN: Plan 1. Generalized weakness with inability complete ADLs multiple falls with increased lower extremity edema ? Renal function is close to baseline, her baseline creatinine is around 0.9 and her creatinine on admission was 1.2 and is back to baseline, no ALDAIR on admission ? PT/OT ? 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 UA is unremarkable ? Her proBNP was 540 with an EF of 55% and a PASP of 42 mmHg on 02/19/2025 ? Limited echo with EF of 65% stage I diastolic dysfunction, PASP of 30 mmHg ? Recent TSH was unremarkable ? She is having confusion which can be due to delirium in the hospital in the setting dementia given her cancer however we will proceed with an MRI of her brain with and without contrast to evaluate for possible metastatic disease 2. 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 Continue with her home inhalers ? Will manage her pain ? She is on durvalumab as an outpatient she completed chemotherapy 3. Essential HTN/edema ? Continue with her home metoprolol ? Continue with her home diuretics of her Lasix was decreased by 50% ? Will monitor and make adjustments as necessary 4. Anxiety/depression ? Stable ? Continue with her home medications 5. GERD ? Stable ? Continue with PPI DVT: Lovenox Charges/Coding Visit Charges Inpatient E&M: 06935 Subs Hosp L2
--- NOTE | 2025-04-17 09:02 | MRI_ITS ---
PROCEDURE: MRI BRAIN W/WO CONTRAST 04/17/2025 REASON FOR EXAM: STAGE 4 CANCER WITH CONFUSION TECHNIQUE: Procedure Code: [id number] Modality: MR Procedure: BRAIN W/WO CONTRAST Multiplanar and multisequential MRI of the brain was performed without and with IV gadolinium based contrast administration. CONTRAST: Clariscan VOLUME: 14 mL COMPARISON: Brain MRI 02/26/2025. FINDINGS: No regions of abnormal restricted diffusion to indicate recent infarct. No intracranial mass lesion or pathologic enhancement. No evidence of intracranial hemorrhage, extra-axial collection, mass-effect, or other acute abnormality. Mild parenchymal volume loss. Few scattered punctate foci of minimal leukoaraiosis in the supratentorial white matter. Redemonstrated slightly more prominent small patchy foci of cortical-subcortical T2 FLAIR hyperintensity in the anterior left frontal lobe are nonspecific, but stable to slightly less prominent. Preserved major intracranial vascular flow voids. Grossly unremarkable orbits. Well-aerated paranasal sinuses and bilateral mastoid air cells. Unremarkable appearance of the skull base and calvarium. MRI/Brain W/WO Contrast IMPRESSION: No acute intracranial abnormality. No intracranial mass lesion or pathologic en hancement; no findings suspicious for metastatic disease. Stable to slightly decreased small patchy foci of nonspecific T2 FLAIR hyperint ensity in the anterior left temporal lobe. Uncertain etiology but unlikely to be neoplastic. Attention on follow-up. Reading Location: [id number]
--- NOTE | 2025-04-17 10:15 | CASEMGMT ---
Social Work THEA spoke with the patients daughter and son. THEA informed them that [facility] and [facility] could not accept the patient but [facility] could. Family is agreement with the patient going to [facility]. THEA asked [facility] to start precert. KAYLA Blanco
--- NOTE | 2025-04-17 10:31 | CASEMGMT ---
Discharge Planning Updates sent to [facility]. Lisa Young DC Planning Asst.
[2025-04-17] MEDS: Zinc Sulfate 50 mg zinc (220 mg) ORAL capsule PO (11:37)
[2025-04-17] MEDS: Senna/Docusate Sodium 1 Tablet 2 TABLET PO ×2 (11:38→19:50)
--- NOTE | 2025-04-17 12:03 | WOUNDNOTE ---
wound photo: right thigh
--- NOTE | 2025-04-17 12:04 | WOUNDNOTE ---
wound photo: left lower leg
--- NOTE | 2025-04-17 14:19 | PCM.CONS.P ---
[facility] Medical History Abdominal pain Hypokalemia Partial small bowel obstruction Delayed surgical wound healing Constipation Pericardial effusion Hilar mass Right atrial mass Genital herpes Osteoporosis Migraine Hyperlipidemia Hiatal hernia GERD (gastroesophageal reflux disease) Depression Chronic kidney disease (CKD) Bilateral leg edema Thyroid enlargement Hypokalemia Wears dentures Wears glasses Post-menopausal Cancer History of steroid therapy Arthritis Back pain History of hiatal hernia Gastric reflux Former smoker On home oxygen therapy Asthma Shortness of breath on exertion Hoarseness Chronic cough History of edema Cardiology follow-up encounter History of echocardiogram Hypertension Coughing up blood Chest pain Anemia Encounter for antineoplastic immunotherapy Encounter for chemotherapy management Small cell lung cancer Encounter for education 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 COPD (chronic obstructive pulmonary disease) Home Medications ?Medication ?Instructions ?Recorded ?Last Taken ?Type albuterol sulfate 90 mcg/actuation 1 - 2 puff inhalation Q4H PRN PRN 08/24/19 Unknown History aerosol inhaler Sob &/Or Wheezing loratadine 10 mg tablet 10 mg PO DAILY allergy 08/24/19 04/13/25 History buspirone 10 mg tablet 10 mg PO TID PRN anxiety 11/13/24 04/13/25 History pantoprazole 40 mg tablet,delayed 40 mg PO QDAY gerd 11/13/24 04/13/25 History release docusate sodium 100 mg capsule 100 mg PO BID constipation 11/17/24 04/13/25 History (Dulcolax Stool Softener (docusate)) trazodone 100 mg tablet 150 mg PO QHS sleep 11/17/24 04/13/25 History cyanocobalamin (vitamin B-12) 50 50 mcg PO DAILY 02/11/25 04/13/25 History mcg tablet durvalumab 50 mg/mL intravenous 1,500 mg IV Q14D 02/11/25 Unknown History solution zinc citrate, zinc oxide 50 mg 50 mg PO DAILY supplement 02/11/25 04/13/25 History tablet prochlorperazine maleate 10 mg 10 mg PO Q6-8H PRN nausea and 03/06/25 Unknown Rx tablet (Compazine) vomiting #30 tabs budesonide-formoterol HFA 80 2 puff inhalation BID 04/10/25 04/13/25 History mcg-4.5 mcg/actuation aerosol inhaler (Symbicort) famotidine 10 mg tablet 10 mg PO BID 04/10/25 04/13/25 History furosemide 40 mg tablet 40 mg PO DAILY swelling #90 tabs 04/10/25 04/13/25 Rx metoprolol tartrate 25 mg tablet 25 mg PO BID #60 tabs 04/10/25 04/13/25 Rx potassium chloride 20 mEq 20 meq PO BID #30 tabs 04/10/25 04/13/25 Rx tablet,extended release(part/cryst) valacyclovir 500 mg tablet 500 mg PO BID 04/10/25 04/13/25 History oxycodone-acetaminophen 10 mg-325 1 tab PO 4X/DAY PRN PRN pain 04/14/25 04/14/25 History mg tablet spironolactone 50 mg tablet 50 mg PO DAILY 04/14/25 04/13/25 History Allergy/AdvReac Type Severity Reaction Status Date / Time calcipotriene Allergy Severe Rash Verified 04/10/25 09:06 Opioids - Morphine Analogues Allergy Severe Hives Verified 04/10/25 09:06 alendronate sodium (From Allergy Pain in Verified 04/10/25 09:06 Fosamax) joints cefaclor (From Ceclor) Allergy Hives Verified 04/10/25 09:06 ezetimibe Allergy Other Verified 04/10/25 09:06 Penicillins Allergy Hives Verified 04/10/25 09:06 tramadol HCl (From Ultram) Allergy Hives Verified 04/10/25 09:06 hydrochlorothiazide AdvReac Unknown reaction Verified 04/10/25 09:06 erythromycin base AdvReac Nausea Verified 04/10/25 09:06 Family History Mother Leukemia Osteoporosis Thyroid disorder Grandfather Brain cancer Father Respiratory disease Brother Heart disease Surgical History History of tubal ligation History of bunionectomy History of carpal tunnel surgery of right wrist History of eyelid surgery History of shoulder surgery History of carpal tunnel release History of bilateral knee replacement H/O breast biopsy History of appendectomy Previous back surgery Social History Smoking Status: Former smoker Tobacco: How many years used: 30 alcohol intake: never HPI Current admission Current Code Status: Full code Associated Diagnosis: Cancer with failure to thrive, altered mental status Consult Data Date of Consult: 04/17/25 Location of consult: PCU Reason for referral: Goals of care and CODE STATUS discussion Referral source: PCU Palliative care diagnosis (Summary list): Failure to thrive, cancer, Palliative care services/treatment (Accepted, as consult): Accepted by the patient's family Case discussed with referring provider: Goals of care HPI Narrative HPI Narrative: PAIN ASSESSMENT Location: [ ] Quality: [ ] Severity/Quantity: [ ] Timing/Frequency: [ ] Context: [ ] Factors that make it better/worse: [ ] Associated signs & symptoms: [ ] Prior to meeting with the patient at bedside I reviewed labs, documentation and radiological studies. I also reviewed documentation from oncology. I then met with the patient's family in the patient's room. Patient's son and daughter. The patient was unavailable for assessment as she was in MRI. Patient's family states good understanding of the patient's clinical presentation. They state that they have been by her side for all appointments and treatments since August. They state that Juliette spends all of her time in her recliner this is also where she sleeps. Family endorses hallucinations and confusion. She has also had multiple falls. She is unable to do any of her ADLs. Family provides all meals and cleaning. They have frequently been receiving phone calls from Juliette in the middle of the night. They state today that Juliette was in a very bad mood she is refusing to eat or drink. She initially refused the MRI but her son told her that she needed to have it done and convinced her to go. Juliette was, reportedly, not pleased with going to MRI. Patient's family has talked to [facility] and does not feel that they offer them much support. They are choosing to get other recommendations for palliative care services. There is a possibility that they may transition to hospice but this will depend on the results of the MRI. Plan is to meet with the patient's family and the patient tomorrow to discuss goals of care after receiving MRI results. We will also discuss CODE STATUS because, as of right now, the patient is full code. This may not align with the patient's goals of care going forward. 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 In the ED temp 97.8, heart rate initially 107 then decreased to 100, blood pressure 96/76. Pulse ox 97% on room air. CBC with white count 7.6, hemoglobin 13.3. BUN 28 with a creatinine of 1.2, up from 0.85 5 days ago. AST, ALT, total bili within normal limits with a slightly elevated alk phos at 130. Lactic acid normal at 1.3, UA unremarkable. Chest x-ray no acute findings. Patient is generally weak and has had frequent falls and is not safe for discharge home so hospitalist contacted for admission and placement. Patient evaluated at bedside, no family present for additional information but patient seems to be answering questions appropriately. She reports her lower extremities have been swelling increasingly for at least the past month, 1-1/2 to 2 weeks ago she noticed she has been feeling more tired and weak and had her first fall about 1.5 weeks ago and has had several falls since then. About a week ago she fell and hit her head so hard on the trash can she reports it became dented, she had dizziness after with no loss of consciousness and ultimately was able to get up, has had pain in the center of her cervical spine since that fall that radiates to right shoulder, denies being evaluated after any of these falls. Notes that she has had a little bit of blurry vision over the past couple of days and had a little bit of nausea over the past couple weeks but none at this time, does note some increased shortness of breath recently with no cough, no chest pain. Denies any diarrhea, no fevers, denies any headache, no changes in urination. Patient denies any numbness or tingling, feels weak but this is symmetric with no focal weakness Palliative Assessment Advanced Directive - Current Admission Advance Directive: Advance Directive ON ADMISSION - REFERENCE Do you have a Healthcare Yes 04/14/25 17:46 Living Will? Is a Healthcare Living Will No, requested patient bring 04/14/25 17:46 present in the medical record? copy into [facility] Do you have a Healthcare Power Yes 04/14/25 17:46 of [employer]? Is a Healthcare Power of No, requested patient bring 04/14/25 17:46 [employer] present in the copy into [facility] medical rec Name of Medical Power of mahamed yin 04/14/25 12:22 [employer] Do You Want Additional Declined 04/14/25 17:46 Information on Advanced Directives or Psychosocial/Spiritual Information Living situation/Marital status: home by self Geographic location: [place] Supports: family Gnosticism/Natalie or spiritual preference: none Prior functional status: last 2 months not able to cook for self. family stops by 3-4 times a day Assistive devices at home: walker possible w/c Cultrual issues: None Information about the patient as a person: watches TV, use to do crossword puzzles. use to enjoy cooking Symptoms Palliative performance scale: 20 Objective Data Objective Data Vital Signs: Vital Signs Temp Pulse Resp BP Pulse Ox O2 Del Method 97.4 F L 98 16 110/76 98 Room Air 04/17/25 11:50 04/17/25 11:50 04/17/25 11:50 04/17/25 11:50 04/17/25 11:50 04/17/25 11:50 Oxygen Delivery Method Room Air Weight: 161 lb 6.054 oz Body Mass Index (BMI) 28.5 Intake & Output: Intake and Output for Last 24 Hours 04/15/25 04/16/25 04/17/25 23:59 23:59 23:59 Intake Total 682 / 682 859 / 859 800 / 800 Output Total 1350 / 1350 1650 / 1650 Balance -668 / -668 -791 / -791 800 / 800 Lab / Micro Data 04/17/25 04:25 04/17/25 04:25 Labs: Laboratory Results - last 24 hr 04/17/25 04:25: WBC 7.5, RBC 3.33 L, Hgb 10.5 L, Hct 31.2 L, MCV 93.7, MCH 31.5, MCHC 33.7, RDW Std Deviation 64.8 H, RDW Coeff of Juan David 19.1 H, Plt Count 185, MPV 9.2, Immature Gran % (Auto) 0.400, Neut % (Auto) 80.7 H, Lymph % (Auto) 11.5 L, [place] % (Auto) 7.0, Eos % (Auto) 0.1, Baso % (Auto) 0.3, Absolute Neuts (auto) 6.1, Absolute Lymphs (auto) 0.87, Nucleated RBC % 0, Sodium 135, Potassium 4.0, Chloride 100, Carbon Dioxide 27.8, Anion Gap 7, BUN 14, Creatinine 0.80, Estim Creat Clear Calc 60.03, Est GFR (MDRD) Non-Af 78, BUN/Creatinine Ratio 17.4, Glucose 91, Calcium 7.3 L Rhythm Strip Rhythm Strip: Sinus Rhythm Rate: 100 Ectopy: None Impressions & Recommendations Encouter Achieved as a result of this Palliative Care Encounter: [04/17/25: [id number], [id number]. 04/18/25: ] minutes were spent in total for this visit which consisted, primarily of counseling and education dealing with the complex and emotionally intense issues of symptom management and palliative care in the setting of serious and potentially life-threatening illness. Review of documentation, labs and radiological studies. ?Patient/family had the opportunity to ask questions. This consult took place over two days.
--- NOTE | 2025-04-17 14:23 | CASEMGMT ---
Hospitalist recommended palliative care, RN CM into room to speak with the family about it. Pt sitting up in chair, family member present in room. Pt agreeable to discussing care with family member present. Discussed palliative care, family attempted to set patient up with them, but family ultimately decided not to sign up as they did not feel it would be beneficial. Denies questions or concerns at this time.
[2025-04-18 02:30] VITALS: BP 116/69; PULSE 96; RESP 18; TEMP 36.1; O2SAT 95
[2025-04-18 02:52] VITALS: BMI 27.4
[2025-04-18 07:36] LABS: Hematocrit 29.6 % (37-47); Hemoglobin 10.0 g/dL (12.0-15.0); Immature Granulocytes Count 0.020 X10^3/uL (0.0-0.0); Mean Corp Hgb Conc 33.8 g/dL (32-36); Mean Corpuscular Volume 93.4 fL (81-99); Mean Platelet Vol. 9.1 fl (6.2-12.0); NRBC Flagged by Analyzer 0 % (0-5); POSITIVE MORPHOLOGY YES; Platelet Count 174 K/mm3 (150-450); RBC Distribution Width CV 18.9 % (11.6-14.6); RBC Distribution Width SD 65.7 fl (35.1-43.9); Red Blood Count 3.17 M/mm3 (4.2-5.4); White Blood Count 5.6 K/mm3 (4.4-11.0)
[2025-04-18 07:39] LABS: Differential Indicated SCAN CRITERIA MET
[2025-04-18 08:02] LABS: Anion Gap 7 (5-15); BUN 13 mg/dL (4-19); BUN/Creat Ratio 17.4 RATIO (10-20); Calcium,Total 7.4 mg/dL (7.6-11.0); Carbon Dioxide 25.1 mmol/L (21.0-32.0); Chloride 101 mmol/L (98-108); Estimated Creatinine Clearance 58.89 ml/min (50-250); Glucose 94 mg/dL (70-99); Magnesium 2.1 mg/dL (1.5-2.2); Potassium 3.5 mmol/L (3.3-5.1)
--- NOTE | 2025-04-18 08:13 | CASEMGMT ---
[facility] has obtained auth to admit. SW's updated. Lisa Young DC Planning Asst.
[2025-04-18 08:14] LABS: Anisocytosis 1+
[2025-04-18 08:30] VITALS: BP 106/61; PULSE 99; RESP 18; TEMP 36.6; O2SAT 95
[2025-04-18] MEDS: Potassium Chloride Oral Tablet 20 MEQ PO (08:30)
[2025-04-18 09:43] VITALS: PULSE 100
[2025-04-18] MEDS: Zinc Sulfate 50 mg zinc (220 mg) ORAL capsule PO (09:44)
[2025-04-18] MEDS: Senna/Docusate Sodium 1 Tablet 2 TABLET PO (09:45)
--- NOTE | 2025-04-18 11:32 | DS.PCM_ITS ---
Providers Date of Admission: 04/14/25 Primary Care Physician: TORIBIO CASTILLO Consultations 04/14/25 22:03 Consult: Onc/Wound/heater tender Routine Comment: Reason for Consult:: Burn to right upper thigh/legs weeping and red 04/17/25 13:27 Consult: Inpatient Palliative Care Routine Consulting Provider: Allyssa Tovar Reason for Consult: stage 4 lung cancer EMERGENT Consult: No MD Notified: Yes Date Notified: 04/17/25 Time Notified: 13:27 Method of Notification: Text Reason For Visit: GENERALIZED WEAKNESS, LOWER EXTREMITY EDEMA, ALDAIR Diagnosis Discharge Diagnosis (1) Adult failure to thrive: Status: Acute Code(s): R62.7 - Adult failure to thrive (2) Bilateral leg edema: Status: Acute Code(s): R60.0 - Localized edema (3) Generalized muscle weakness: Status: Acute Code(s): M62.81 - Muscle weakness (generalized) Plan Patient is a 74-year-old lady with history of metastatic lung CA admitted with progressive generalized weakness 1. Physical deconditioning ? Requested for PT OT eval and professor of social work to assist with discharge planning 2. Acute metabolic encephalopathy ? Patient underwent subsequent evaluation with MRI; findings as below. No acute intracranial abnormality. No intracranial mass lesion or pathologic enhancement; no findings suspicious for metastatic disease. Stable to slightly decreased small patchy foci of nonspecific T2 FLAIR hyperintensity in the anterior left temporal lobe. Uncertain etiology but unlikely to be neoplastic. Attention on follow-up. Repeat imaging studies to be organized by patient PCP 3. 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 Patient currently on durvalumab maintenance. Plan is for patient to follow-up with palliative care as well as with oncology as outpatient 4. Hypertension ? Blood pressure controlled, home medications continued with dose adjustment as needed 5. Chronic congestive heart failure with preserved ejection fraction patient is on furosemide continued; 2D echocardiogram 02/19/25 with trivial pericardial effusion and EF of 55% with lipomatous hypertrophy of atrial septum and PASP of 42 6. 4. Bilateral pedal edema ? Appears to be chronic. Patient is on furosemide in addition to bilateral Mundo wrap 7. Hypertension ? Blood pressure controlled, home medications continued with dose adjustment as needed 8. COPD ? Aerosol treatments as needed 9. Anemia ? Secondary to chronic disorder monitoring H&H and transfuse if patient becomes symptomatic or hemoglobin falls below 7 10. Acute kidney injury ? Creatinine on admission was 1.20 creatinine as of discharge was 0.72 11. GERD ? On PPI 12. DVT prophylaxis ? On enoxaparin Medications at Discharge Home Medications albuterol sulfate 90 mcg/actuation aerosol inhaler 1 - 2 puff inhalation Q4H PRN PRN Sob &/Or Wheezing 08/24/19 loratadine 10 mg tablet 10 mg PO DAILY allergy 08/24/19 buspirone 10 mg tablet 10 mg PO TID PRN anxiety 11/13/24 pantoprazole 40 mg tablet,delayed release 40 mg PO QDAY gerd 11/13/24 docusate sodium 100 mg capsule (Dulcolax Stool Softener (docusate)) 100 mg PO BID constipation 11/17/24 trazodone 100 mg tablet 150 mg PO QHS sleep 11/17/24 cyanocobalamin (vitamin B-12) 50 mcg tablet 50 mcg PO DAILY 02/11/25 durvalumab 50 mg/mL intravenous solution 1,500 mg IV Q14D 02/11/25 zinc citrate, zinc oxide 50 mg tablet 50 mg PO DAILY supplement 02/11/25 prochlorperazine maleate 10 mg tablet (Compazine) 10 mg PO Q6-8H PRN nausea and vomiting #30 tabs 03/06/25 budesonide-formoterol HFA 80 mcg-4.5 mcg/actuation aerosol inhaler (Symbicort) 2 puff inhalation BID 04/10/25 famotidine 10 mg tablet 10 mg PO BID 04/10/25 furosemide 40 mg tablet 40 mg PO DAILY swelling #90 tabs 04/10/25 metoprolol tartrate 25 mg tablet 25 mg PO BID #60 tabs 04/10/25 potassium chloride 20 mEq tablet,extended release(part/cryst) 20 meq PO BID #30 tabs 04/10/25 valacyclovir 500 mg tablet 500 mg PO BID 04/10/25 spironolactone 50 mg tablet 50 mg PO DAILY 04/14/25 acetaminophen 325 mg tablet 650 mg (2 x 325 mg) PO Q6H PRN PRN Pain 1-10 Or Fever >100.7 #0 tabs 04/18/25 melatonin 10 mg disintegrating tablet 10 mg PO QHS PRN PRN Insomnia #0 tabs 04/18/25 oxycodone 5 mg tablet 10 mg (2 x 5 mg) PO Q4H PRN PRN Pain Score 4-10 2 days #8 tabs 04/18/25 sennosides 8.6 mg-docusate sodium 50 mg tablet (Stimulant Laxative Plus) 2 tab PO BID #0 tabs 04/18/25 Hospital Course Summary of Care Provided Minutes Spent on Discharge: 35 Physical Exam Narrative GENERAL: cooperative HEENT: Atraumatic; normocephalic EYES; Anicteric, Normal Conjunctiva NECK; supple, normal thyroid, RESPIRATORY: Diminished to auscultation CARDIOVASCULAR: Regular S1 S2, GI: soft, normoactive bowel sounds, : No Renal angle tenderness; EXTREMITIES: No edema, no clubbing, MUSCULOSKELETAL: no muscle wasting NEURO: Awake; no lateralizing signs. SKIN: No Rash PSYCH; Flat affect Weight / BMI Weight Weight: 70.3 kg Body Mass Index (BMI) 27.4 ABG / Lab / Microbiology Data 04/18/25 07:25 04/18/25 07:25 Laboratory: Laboratory Results - last 24 hr 04/18/25 07:25: WBC 5.6, RBC 3.17 L, Hgb 10.0 L, Hct 29.6 L, MCV 93.4, MCH 31.5, MCHC 33.8, RDW Std Deviation 65.7 H, RDW Coeff of Juan David 18.9 H, Plt Count 174, MPV 9.1, Immature Gran % (Auto) 0.400, Neut % (Auto) 72.5 H, Lymph % (Auto) 16.7 L, [place] % (Auto) 9.8, Eos % (Auto) 0.4, Baso % (Auto) 0.2, Absolute Neuts (auto) 4.1, Absolute Lymphs (auto) 0.94, Nucleated RBC % 0, Anisocytosis 1+, Sodium 133, Potassium 3.5, Chloride 101, Carbon Dioxide 25.1, Anion Gap 7, BUN 13, Creatinine 0.72, Estim Creat Clear Calc 58.89, Est GFR (MDRD) Non-Af 89, BUN/Creatinine Ratio 17.4, Glucose 94, Calcium 7.4 L, Phosphorus 2.8, Magnesium 2.1 Radiography Diagnostic Testing: Radiology Impression Brain MRI 04/17/25 09:02 IMPRESSION: No acute intracranial abnormality. No intracranial mass lesion or pathologic enhancement; no findings suspicious for metastatic disease. Stable to slightly decreased small patchy foci of nonspecific T2 FLAIR hyperintensity in the anterior left temporal lobe. Uncertain etiology but unlikely to be neoplastic. Attention on follow-up. Reading Location: [id number] Instructions Discharge Activity: Return to Normal Activity Call your doctor if you observe: Fever of 101 or Higher, Shortness of breath, Fainting spells and Chest pain DC O2, CPAP, BIPAP Needs Home O2 Discharge instructions: No Meaningful Use Info Meaningful Use Meaningful Use Diagnoses (Choose all that apply): None applicable Discharge Plan Admission Admit Date/Time: 04/14/25 17:18 Attending Provider: Jaswinder Bauer Primary Care Provider: GIOVANNI MAURER Consulting Providers: Ami Magdaleno; Allyssa Tovar; Rui Cleaning Discharge Orders/Prescriptions Prescriptions: New acetaminophen 325 mg Tablet 650 mg PO Q6H PRN PRN (Reason: Pain 1-10 Or Fever >100.7) Qty: 0 0RF oxycodone 5 mg Tablet 10 mg PO Q4H PRN PRN (Reason: Pain Score 4-10) 2 Days Qty: 8 0RF melatonin 10 mg Tablet,Disintegrating 10 mg PO QHS PRN PRN (Reason: Insomnia) Qty: 0 0RF sennosides-docusate sodium [Stimulant Laxative Plus] 8.6-50 mg Tablet 2 tab PO BID Qty: 0 0RF Continued pantoprazole 40 mg tablet,delayed release (DR/EC) 40 mg PO QDAY docusate sodium [Dulcolax Stool Softener (dss)] 100 mg capsule 100 mg PO BID prochlorperazine maleate [Compazine] 10 mg tablet 10 mg PO Q6-8H PRN (Reason: nausea and vomiting) Qty: 30 2RF famotidine 10 mg tablet 10 mg PO BID valacyclovir 500 mg tablet 500 mg PO BID budesonide-formoterol [Symbicort] 80-4.5 mcg/actuation HFA aerosol inhaler 2 puff inhalation BID potassium chloride 20 mEq tablet,ER particles/crystals 20 meq PO BID Qty: 30 0RF metoprolol tartrate 25 mg tablet 25 mg PO BID Qty: 60 11RF albuterol sulfate 1 INHALER inhaler 1 - 2 puff inhalation Q4H PRN PRN (Reason: Sob &/Or Wheezing) loratadine 10 MG tablet 10 mg PO DAILY buspirone 10 mg tablet 10 mg PO TID PRN (Reason: anxiety) durvalumab 50 mg/mL solution 1,500 mg IV Q14D zinc citrate, zinc oxide 50 mg tablet 50 mg PO DAILY cyanocobalamin (vitamin B-12) 50 mcg tablet 50 mcg PO DAILY spironolactone 50 mg tablet 50 mg PO DAILY trazodone 100 mg tablet 150 mg PO QHS furosemide 40 mg tablet 40 mg PO DAILY Qty: 90 3RF Discontinued oxycodone-acetaminophen 10-325 mg tablet 1 tab PO 4X/DAY PRN PRN (Reason: pain) Referrals / Follow Up: GIOVANNI MAURER CRNP [Primary Care Provider, Family Practice] Disposition Disposition (needs filled in before D/C Order can be placed): Long-Term Facility Charges/Coding Visit Charges Inpatient E&M: 91734 Disch Hosp >30min
--- NOTE | 2025-04-18 11:44 | PCM.TXEXTCAR ---
Diet Diet Order/Speech Therapy: INPATIENT Hospital Diet / Speech Therapy Order(s) 04/15/25 12:02 Diet: Sodium Restricted (MOD) Type of Dietary Supplement:: Ensure Plus High Protein Diet Comments: 240mL chocolate w/lunch Routine Orders/Code Status Suppository Frequency: Daily PRN Code Status: DNRCC-A DC O2, CPAP, BIPAP needs Home O2 Discharge instructions: No Wound(s) Right upper thigh: Wound Type: Burn Dressing Change: Adaptic left lower leg: Wound Type: open blister Dressing Change: Adaptic Therapies Physical Therapy: Eval and Treat Occupational Therapy: Eval and Treat Problem/Diagnosis (1) Adult failure to thrive: Status: Acute Code(s): R62.7 - Adult failure to thrive (2) Bilateral leg edema: Status: Acute Code(s): R60.0 - Localized edema (3) Generalized muscle weakness: Status: Acute Code(s): M62.81 - Muscle weakness (generalized) Plan Patient is a 74-year-old lady with history of metastatic lung CA admitted with progressive generalized weakness 1. Physical deconditioning ? Requested for PT OT eval and long term care social worker to assist with discharge planning 2. Acute metabolic encephalopathy ? Patient underwent subsequent evaluation with MRI; findings as below. No acute intracranial abnormality. No intracranial mass lesion or pathologic enhancement; no findings suspicious for metastatic disease. Stable to slightly decreased small patchy foci of nonspecific T2 FLAIR hyperintensity in the anterior left temporal lobe. Uncertain etiology but unlikely to be neoplastic. Attention on follow-up. Repeat imaging studies to be organized by patient PCP 3. 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 Patient currently on durvalumab maintenance. Plan is for patient to follow-up with palliative care as well as with oncology as outpatient 4. Hypertension ? Blood pressure controlled, home medications continued with dose adjustment as needed 5. Chronic congestive heart failure with preserved ejection fraction patient is on furosemide continued; 2D echocardiogram 02/19/25 with trivial pericardial effusion and EF of 55% with lipomatous hypertrophy of atrial septum and PASP of 42 6. 4. Bilateral pedal edema ? Appears to be chronic. Patient is on furosemide in addition to bilateral Mundo wrap 7. Hypertension ? Blood pressure controlled, home medications continued with dose adjustment as needed 8. COPD ? Aerosol treatments as needed 9. Anemia ? Secondary to chronic disorder monitoring H&H and transfuse if patient becomes symptomatic or hemoglobin falls below 7 10. Acute kidney injury ? Creatinine on admission was 1.20 creatinine as of discharge was 0.72 11. GERD ? On PPI 12. DVT prophylaxis ? On enoxaparin Allergies/Procedures Done in Hospital Allergies calcipotriene Allergy (Severe, Verified 04/10/25 09:06) Rash Opioids - Morphine Analogues Allergy (Severe, Verified 04/10/25 09:06) Hives alendronate sodium (From Fosamax) Allergy (Verified 04/10/25 09:06) Pain in joints cefaclor (From Ceclor) Allergy (Verified 04/10/25 09:06) Hives ezetimibe Allergy (Verified 04/10/25 09:06) Other cough, myalgia, blisters Penicillins Allergy (Verified 04/10/25 09:06) Hives tramadol HCl (From Ultram) Allergy (Verified 04/10/25 09:06) Hives hydrochlorothiazide Adverse Reaction (Unknown, Verified 04/10/25 09:06) reaction Was told it can cause cancer family had bad experience erythromycin base Adverse Reaction (Verified 04/10/25 09:06) Nausea Type of Care/Length of Stay Estimated LOS: Convalescent Care Less Than 30 days Type of Care Needed: Skilled Rehab Potential: Good Prognosis: Good Additional Orders/Day of Discharge Day of Discharge: 04/18/25 Dietary and Speech Recommendations Dietitian Recommendations/Changes: Will adjust diet to sodium restricted diet to manage edema. Will order 240mL chocolate Ensure plus high protein w/lunch per pt request. Discharge Plan Admission Admit Date/Time: 04/14/25 17:18 Attending Provider: Jaswinder Bauer Primary Care Provider: GIOVANNI MAURER Consulting Providers: Ami Magdaleno; Allyssa Tovar; Rui Cleaning Discharge Orders/Prescriptions Prescriptions: New acetaminophen 325 mg Tablet 650 mg PO Q6H PRN PRN (Reason: Pain 1-10 Or Fever >100.7) Qty: 0 0RF oxycodone 5 mg Tablet 10 mg PO Q4H PRN PRN (Reason: Pain Score 4-10) 2 Days Qty: 8 0RF melatonin 10 mg Tablet,Disintegrating 10 mg PO QHS PRN PRN (Reason: Insomnia) Qty: 0 0RF sennosides-docusate sodium [Stimulant Laxative Plus] 8.6-50 mg Tablet 2 tab PO BID Qty: 0 0RF Continued pantoprazole 40 mg tablet,delayed release (DR/EC) 40 mg PO QDAY docusate sodium [Dulcolax Stool Softener (dss)] 100 mg capsule 100 mg PO BID prochlorperazine maleate [Compazine] 10 mg tablet 10 mg PO Q6-8H PRN (Reason: nausea and vomiting) Qty: 30 2RF famotidine 10 mg tablet 10 mg PO BID valacyclovir 500 mg tablet 500 mg PO BID budesonide-formoterol [Symbicort] 80-4.5 mcg/actuation HFA aerosol inhaler 2 puff inhalation BID potassium chloride 20 mEq tablet,ER particles/crystals 20 meq PO BID Qty: 30 0RF metoprolol tartrate 25 mg tablet 25 mg PO BID Qty: 60 11RF albuterol sulfate 1 INHALER inhaler 1 - 2 puff inhalation Q4H PRN PRN (Reason: Sob &/Or Wheezing) loratadine 10 MG tablet 10 mg PO DAILY buspirone 10 mg tablet 10 mg PO TID PRN (Reason: anxiety) durvalumab 50 mg/mL solution 1,500 mg IV Q14D zinc citrate, zinc oxide 50 mg tablet 50 mg PO DAILY cyanocobalamin (vitamin B-12) 50 mcg tablet 50 mcg PO DAILY spironolactone 50 mg tablet 50 mg PO DAILY trazodone 100 mg tablet 150 mg PO QHS furosemide 40 mg tablet 40 mg PO DAILY Qty: 90 3RF Discontinued oxycodone-acetaminophen 10-325 mg tablet 1 tab PO 4X/DAY PRN PRN (Reason: pain) Referrals / Follow Up: MAST,GIOVANNI, POOL HALL INSPECTOR [Primary Care Provider, Family Practice] Disposition Disposition (needs filled in before D/C Order can be placed): [facility] Facility
--- NOTE | 2025-04-18 11:59 | CASEMGMT ---
Addendum entered by Em Gallardo 04/18/25 12:21: Precert has been obtained. SW informed the nurse, the facility, daughter and patient that transportation is scheduled for 230pm today. Patient is scheduled with [facility] for [facility] transport. The 7000 was completed. SW sent signed signed med list and DC orders to the facility through [facility]. Original Note: Social Work SW notified the patient, her daughter Glenny and the nurse that the patient will be discharging to [facility] today. KAYLA Blanco
--- NOTE | 2025-04-18 13:32 | PHA.DC.MR.R ---
Pharmacy [place] Med Reconciliation Pharmacy Service has performed discharge medication reconciliation for this patient. The patient's discharge medication list was reviewed for discrepancies and discrepancies were resolved. Medications at Discharge Home Medications albuterol sulfate 90 mcg/actuation aerosol inhaler 1 - 2 puff inhalation Q4H PRN PRN Sob &/Or Wheezing 08/24/19 loratadine 10 mg tablet 10 mg PO DAILY allergy 08/24/19 buspirone 10 mg tablet 10 mg PO TID PRN anxiety 11/13/24 pantoprazole 40 mg tablet,delayed release 40 mg PO QDAY gerd 11/13/24 docusate sodium 100 mg capsule (Dulcolax Stool Softener (docusate)) 100 mg PO BID constipation 11/17/24 trazodone 100 mg tablet 150 mg PO QHS sleep 11/17/24 cyanocobalamin (vitamin B-12) 50 mcg tablet 50 mcg PO DAILY 02/11/25 durvalumab 50 mg/mL intravenous solution 1,500 mg IV Q14D 02/11/25 zinc citrate, zinc oxide 50 mg tablet 50 mg PO DAILY supplement 02/11/25 prochlorperazine maleate 10 mg tablet (Compazine) 10 mg PO Q6-8H PRN nausea and vomiting #30 tabs 03/06/25 budesonide-formoterol HFA 80 mcg-4.5 mcg/actuation aerosol inhaler (Symbicort) 2 puff inhalation BID 04/10/25 famotidine 10 mg tablet 10 mg PO BID 04/10/25 furosemide 40 mg tablet 40 mg PO DAILY swelling #90 tabs 04/10/25 metoprolol tartrate 25 mg tablet 25 mg PO BID #60 tabs 04/10/25 potassium chloride 20 mEq tablet,extended release(part/cryst) 20 meq PO BID #30 tabs 04/10/25 valacyclovir 500 mg tablet 500 mg PO BID 04/10/25 spironolactone 50 mg tablet 50 mg PO DAILY 04/14/25 acetaminophen 325 mg tablet 650 mg (2 x 325 mg) PO Q6H PRN PRN Pain 1-10 Or Fever >100.7 #0 tabs 04/18/25 melatonin 10 mg disintegrating tablet 10 mg PO QHS PRN PRN Insomnia #0 tabs 04/18/25 oxycodone 5 mg tablet 10 mg (2 x 5 mg) PO Q4H PRN PRN Pain Score 4-10 2 days #8 tabs 04/18/25 sennosides 8.6 mg-docusate sodium 50 mg tablet (Stimulant Laxative Plus) 2 tab PO BID #0 tabs 04/18/25
[2025-04-18 14:00] VITALS: BP 93/64; PULSE 103; RESP 16; TEMP 36.6; O2SAT 96
--- NOTE | 2025-04-18 14:12 | CASEMGMT ---
Social Work SW spoke with the daughter Glenny and she stated they will stay with [facility]. Patient was given the choices of 2 other palliative care agencies. SW informed the daughter if they decided to change agencies that Rama can make that referral. KAYLA Blanco
[2025-04-18 19:38] LABS: Mucous, Urine 0 SEEN /hpf (<or=2+)
[2025-04-18 21:27] LABS: Color, Urine Yellow (Yellow); Glucose, Dipstick Normal (Normal); Ketone-Dipstick Negative (Negative); Leukocyte Esterase-Dipstick 500 /ul (Negative); Nitrite-Dipstick Positive (Negative); Occult Blood-Urine 50 /ul (Negative); Protein-Dipstick 30 mg/dl (Negative); Specific Gravity, Urine 1.010 (1.002-1.030); Urine Bilirubin Dipstick Negative (Negative)
[2025-04-18 22:52] LABS: Transitional Epithelial - Ur 0-5 SEEN /hpf (0-5)
[2025-04-18 22:53] LABS: Red Blood Cells-Urine 0-5 SEEN /hpf (0-5); Squamous Epithelial Cells - UA 0-5 SEEN /hpf (5-10)
== END 2025-04-18 15:07 | disposition skilled nursing facility (03) | DRG 682 ==
LOC: ED 15:20 → PCU 17:20
PROVIDERS: Family Medicine; Admitting Provider Internal Medicine; Emergency Provider Emergency Medicine; PCP Nurse Practitioner Adult Health; Visit Provider Internal Medicine
DX: N17.9 Acute kidney failure, unspecified (principal); G93.41 Metabolic encephalopathy; C78.7 Secondary malignant neoplasm of liver and intrahepatic bile duct; C34.90 Malignant neoplasm of unspecified part of unspecified bronchus or lung; I50.32 Chronic diastolic (congestive) heart failure; R62.7 Adult failure to thrive; D63.0 Anemia in neoplastic disease; I11.0 Hypertensive heart disease with heart failure; J44.9 Chronic obstructive pulmonary disease, unspecified; F32.A Depression, unspecified; E78.5 Hyperlipidemia, unspecified; K21.9 Gastro-esophageal reflux disease without esophagitis; F41.9 Anxiety disorder, unspecified; Z66 Do not resuscitate; M62.81 Muscle weakness (generalized); R60.0 Localized edema; R29.6 Repeated falls; Z96.653 Presence of artificial knee joint, bilateral; Z68.27 Body mass index [BMI] 27.0-27.9, adult; Z79.51 Long term (current) use of inhaled steroids; Z79.899 Other long term (current) drug therapy; Z87.891 Personal history of nicotine dependence
CPT/HCPCS: 36415; 70450; 70553; 71046; 72125; 76770; 80048; 80053; 81001; 82436; 82570; 82607; 83605; 83735; 83880; 83935; 84100; 84133; 84300; 84540; 85025; 93005; 93308; 94640; 94668; 97162; 97166; 97530; 97535; 97802; 99252; 99285; 99406; P9047; P9612; Q9957; A4216; G0463; J2405